=== PATIENT | male | born 1970 | race Caucasian/White ===

== ENCOUNTER 2016-07-23 13:08 | Emergency (ER) | payer MEDICARE, OTHER ==
[2016-07-23 13:39] VITALS: BP 133/85; PULSE 89; RESP 18; TEMP 97.8
--- NOTE | 2016-07-23 14:01 | ED ---
URI HPI - General Chief Complaint: Upper Respiratory Infection Stated Complaint: Sore Throat Time Seen by Provider: 07/23/16 13:46 Source: patient, RN notes reviewed Mode of arrival: ambulatory Limitations: no limitations - History of Present Illness Initial Comments: Patient is a 46-year-old male presents to the emergency room for evaluation of sore throat. Patient states he's had congestion and cough for the past few weeks. Patient states he's been having a sore throat for the past month. Patient states the pain is worse when he swallows. Patient denies trouble breathing or shortness of breath. Patient denies headache or dizziness. Patient denies chest pain. Patient denies any fevers or chills. Patient denies taking anything for his symptoms. Patient states his primary care physician has not come to see him at the [facility] yet. Patient denies abdominal pain, nausea, vomiting, diarrhea, constipation. - Related Data Home Medications Medication Instructions Recorded Confirmed Loratadine [Claritin] 10 mg PO DAILY 08/15/14 07/23/16 OXcarbazepine [Trileptal] 300 mg PO BID 08/15/14 07/23/16 Omeprazole [PriLOSEC] 20 mg PO AC-BRKFST 08/15/14 07/23/16 metFORMIN HCL [metFORMIN HCL ER] 1,000 mg PO AC-SUPPER 08/15/14 07/23/16 Insulin NPL/Insulin Lispro 26 unit SQ AC-BID 10/02/14 07/23/16 [humaLOG MIX 75-25 VIAL] Albuterol Nebulized [Ventolin 2.5 mg INHALATION RT-BID PRN 07/03/15 07/23/16 Nebulized] Gabapentin [Neurontin] 800 mg PO QID 07/03/15 07/23/16 Tamsulosin HCl [Flomax] 0.4 mg PO DAILY 07/03/15 07/23/16 Acetaminophen Tab [Tylenol] 500 mg PO TID PRN 01/13/16 07/23/16 Albuterol Inhaler [Ventolin Hfa 2 puff INHALATION RT-QID PRN 01/13/16 07/23/16 Inhaler] Dipyridamole-Aspirin 200-25 mg 1 tab PO BID 01/13/16 07/23/16 [Aggrenox 25MG -200MG] Ergocalciferol [Vitamin D2] 50,000 unit PO MO 01/13/16 07/23/16 Meloxicam [Mobic] 15 mg PO DAILY 01/13/16 07/23/16 Simvastatin [Zocor] 40 mg PO DAILY 01/13/16 07/23/16 Previous Rx's Medication Instructions Recorded Budesonide-Formot 160-4.5 Mcg 2 puff INHALATION RT-BID 30 Days 07/08/15 [Symbicort 160-4.5 Mcg Inhaler] Venlafaxine HCl ER [Effexor XR] 300 mg PO DAILY 30 Days 07/08/15 Ibuprofen [Motrin] 600 mg PO Q6HR PRN #20 tab 07/23/16 guaiFENesin [Mucinex] 1,200 mg PO BID PRN #12 tab.er.12h 07/23/16 Allergies Allergy/AdvReac Type Severity Reaction Status Date / Time ciprofloxacin Allergy Unknown Nausea Verified 07/23/16 13:39 dicyclomine HCl [From Bentyl] Allergy Unknown Dyspnea Verified 07/23/16 13:39 latex Allergy Unknown Rash/Hives Verified 07/23/16 13:39 Macrolide Antibiotics Allergy Unknown Nausea Verified 07/23/16 13:39 diphenhydramine HCl Allergy Anaphylaxis Verified 07/23/16 13:39 [From Benadryl] adhesive AdvReac Unknown Itching Verified 07/23/16 13:39 sulfamethoxazole AdvReac Unknown Unknown Verified 07/23/16 13:39 [From Bactrim] trimethoprim [From Bactrim] AdvReac Unknown Unknown Verified 07/23/16 13:39 Review of Systems ROS Statement: Those systems with pertinent positive or pertinent negative responses have been documented in the HPI. ROS Other: All systems not noted in ROS Statement are negative. Past Medical History Past Medical History: Asthma, Chest Pain / Angina, COPD, CVA/TIA, Diabetes Mellitus, GERD/Reflux, Hearing Disorder / Deafness, Hyperlipidemia, Hypertension , Liver Disease, Osteoarthritis (OA), Pneumonia, Seizure Disorder, Sleep Apnea/ CPAP/BIPAP Additional Past Medical History / Comment(s): Cyst on kidney, uses cpap (21) History of Any Multi-Drug Resistant Organisms: None Reported Past Surgical History: Heart Catheterization, Orthopedic Surgery Additional Past Surgical History / Comment(s): Cysts removed, left thumb surgery Past Anesthesia/Blood Transfusion Reactions: Motion Sickness, Postoperative Nausea & Vomiting (PONV) Past Psychological History: Bipolar, Depression, Schizophrenia Smoking Status: Current every day smoker Past Alcohol Use History: None Reported Additional Past Alcohol Use History / Comment(s): PAST ETOH ABUSE STATED STOPPED TOTALLY OVER 1 MONTH. Past Drug Use History: None Reported - Past Family History Brother(s) Family Medical History: Diabetes Mellitus Additional Family Medical History / Comment(s): Patient has 2 brothers. One from complications from diabetes. The second is alive with diabetes. Sister(s) Family Medical History: Cancer Additional Family Medical History / Comment(s): Patient has one sister with breast cancer. Patient does not have any children. Father Family Medical History: Cancer Additional Family Medical History / Comment(s): Father in his 40s or 50s from colon cancer. Mother Family Medical History: Cancer Additional Family Medical History / Comment(s): Mother at age 68 from lung cancer. General Exam - General Exam Comments Initial Comments: Sitting in exam room, no acute distress. Limitations: no limitations General appearance: alert, in no apparent distress Head exam: Present: atraumatic, normocephalic, normal inspection Eye exam: Present: normal appearance ENT exam: Present: normal exam, normal oropharynx, mucous membranes moist, TM's normal bilaterally, normal external ear exam Neck exam: Present: normal inspection Respiratory exam: Present: normal lung sounds bilaterally. Absent: respiratory distress Cardiovascular Exam: Present: regular rate, normal rhythm, normal heart sounds GI/Abdominal exam: Present: soft, normal bowel sounds. Absent: distended, tenderness, guarding, rebound, rigid Extremities exam: Present: normal inspection Back exam: Present: normal inspection Neurological exam: Present: alert, oriented X3, CN II-XII intact, normal gait Psychiatric exam: Present: normal affect, normal mood Skin exam: Present: warm, dry, intact, normal color. Absent: rash Course Vital Signs 07/23/16 13:38 Temperature 97.8 F Pulse Rate 89 Respiratory 18 Rate Blood Pressure 133/85 O2 Sat by Pulse 97 Oximetry Medical Decision Making - Medical Decision Making Patient is a 46-year-old male presents to the emergency room for evaluation of congestion and throat pain. Rapid strep negative. Advised the patient to take [id number] decongestants and ibuprofen for throat pain. Advised patient to follow-up with his primary care provider in 1-2 days for reevaluation. Patient states he understands everything that was discussed with him. Return parameters discussed. Case discussed with Dr. Felix. - Lab Data Lab Results 07/23/16 Range/Units 13:57 Group A Strep Rapid Negative (Negative) Disposition Clinical Impression: Upper respiratory infection Disposition: HOME SELF-CARE Condition: Good Instructions: Upper Respiratory Infection (ED) Additional Instructions: Drink plenty of fluids. Take medications as needed. Take Tylenol or Motrin as needed for pain. Please follow up with primary care provider in 1-2 days. If any new symptom arises, symptoms worsen or fever develops, return to ER as soon as possible. Prescriptions: Ibuprofen [Motrin] 600 mg PO Q6HR PRN #20 tab PRN Reason: Pain guaiFENesin [Mucinex] 1,200 mg PO BID PRN #12 tab.er.12h PRN Reason: Congestion Referrals: Antonio Davies MD [Primary Care Provider] - 1-2 days Time of Disposition: 14:25
[2016-07-23] MEDS ORDERED: IBUPROFEN 600 MG TAB PO STA (14:02)
== END 2016-07-23 14:33 | disposition home or self-care (01) ==
LOC: EC 13:08
DX: J06.9 Acute upper respiratory infection, unspecified (principal); Z79.899 Other long term (current) drug therapy; J45.909 Unspecified asthma, uncomplicated; E11.9 Type 2 diabetes mellitus without complications; Z79.4 Long term (current) use of insulin; K21.9 Gastro-esophageal reflux disease without esophagitis; E78.5 Hyperlipidemia, unspecified; I10 Essential (primary) hypertension; G40.909 Epilepsy, unspecified, not intractable, without status epilepticus; M19.90 Unspecified osteoarthritis, unspecified site; Z98.61 Coronary angioplasty status; F32.9 Major depressive disorder, single episode, unspecified; F20.9 Schizophrenia, unspecified; F17.200 Nicotine dependence, unspecified, uncomplicated; Z87.01 Personal history of pneumonia (recurrent); Z79.84 Long term (current) use of oral hypoglycemic drugs; Z79.82 Long term (current) use of aspirin; Z79.51 Long term (current) use of inhaled steroids; Z88.8 Allergy status to other drugs, medicaments and biological substances; Z88.1 Allergy status to other antibiotic agents
CPT/HCPCS: 87081; 87430; 99283

== ENCOUNTER 2016-08-11 13:50 | Emergency (ER) | payer MEDICARE, OTHER ==
[2016-08-11 14:08] VITALS: TEMP 99.5
[2016-08-11] MEDS ORDERED: SODIUM CHLORIDE 0.9% 500 ML IV STA (14:40)
--- NOTE | 2016-08-11 14:44 | ED ---
Chest Pain HPI - General Chief Complaint: Chest Pain Stated Complaint: Chest Pain Time Seen by Provider: 08/11/16 14:27 Source: patient, RN notes reviewed Mode of arrival: ambulatory Limitations: no limitations - History of Present Illness Initial Comments: Patient is a 46-year-old male presents to the emergency room for evaluation of chest pain. Patient states been having on and off chest pain for the past few months. Patient states he's been here before with the same symptoms. Patient states this chest pain feels similar to his other episodes of chest. Patient states chest pain worsened today after smoking about 9 cigars. Patient does admit that she feels slightly short of breath. Patient states feels nauseous but denies any vomiting. Patient denies abdominal pain. Patient denies headache or dizziness. Patient has numbness or tingling in extremities. Patient states he is having sharp/throbbing chest pain. Patient states pain is worse with movement and taking a deep breath. - Related Data Home Medications Medication Instructions Recorded Confirmed Loratadine [Claritin] 10 mg PO DAILY 08/15/14 08/11/16 OXcarbazepine [Trileptal] 300 mg PO BID 08/15/14 08/11/16 Omeprazole [PriLOSEC] 20 mg PO AC-BRKFST 08/15/14 08/11/16 metFORMIN HCL [metFORMIN HCL ER] 1,000 mg PO AC-SUPPER 08/15/14 08/11/16 Insulin NPL/Insulin Lispro 26 unit SQ AC-BID 10/02/14 08/11/16 [humaLOG MIX 75-25 VIAL] Albuterol Nebulized [Ventolin 2.5 mg INHALATION RT-BID PRN 07/03/15 08/11/16 Nebulized] Gabapentin [Neurontin] 800 mg PO QID 07/03/15 08/11/16 Tamsulosin HCl [Flomax] 0.4 mg PO DAILY 07/03/15 08/11/16 Acetaminophen Tab [Tylenol] 500 mg PO TID PRN 01/13/16 08/11/16 Albuterol Inhaler [Ventolin Hfa 2 puff INHALATION RT-QID PRN 01/13/16 08/11/16 Inhaler] Dipyridamole-Aspirin 200-25 mg 1 tab PO BID 01/13/16 08/11/16 [Aggrenox 25MG -200MG] Ergocalciferol [Vitamin D2] 50,000 unit PO MO 01/13/16 08/11/16 Meloxicam [Mobic] 15 mg PO DAILY 01/13/16 08/11/16 Simvastatin [Zocor] 40 mg PO DAILY 01/13/16 08/11/16 Previous Rx's Medication Instructions Recorded Budesonide-Formot 160-4.5 Mcg 2 puff INHALATION RT-BID 30 Days 07/08/15 [Symbicort 160-4.5 Mcg Inhaler] Venlafaxine HCl ER [Effexor XR] 300 mg PO DAILY 30 Days 07/08/15 Ibuprofen [Motrin] 600 mg PO Q6HR PRN #20 tab 07/23/16 guaiFENesin [Mucinex] 1,200 mg PO BID PRN #12 tab.er.12h 07/23/16 Allergies Allergy/AdvReac Type Severity Reaction Status Date / Time ciprofloxacin Allergy Unknown Nausea Verified 08/11/16 14:05 dicyclomine HCl [From Bentyl] Allergy Unknown Dyspnea Verified 08/11/16 14:05 latex Allergy Unknown Rash/Hives Verified 08/11/16 14:05 Macrolide Antibiotics Allergy Unknown Nausea Verified 08/11/16 14:05 diphenhydramine HCl Allergy Anaphylaxis Verified 08/11/16 14:05 [From Benadryl] adhesive AdvReac Unknown Itching Verified 08/11/16 14:05 sulfamethoxazole AdvReac Unknown Unknown Verified 08/11/16 14:05 [From Bactrim] trimethoprim [From Bactrim] AdvReac Unknown Unknown Verified 08/11/16 14:05 Review of Systems ROS Statement: Those systems with pertinent positive or pertinent negative responses have been documented in the HPI. ROS Other: All systems not noted in ROS Statement are negative. EKG Findings - EKG Comments: EKG Findings:: Normal sinus rhythm, ventricular rate 73 bpm, MS interval of 124 ms, QRS duration 100 ms, QT/QTC 390/429 ms Past Medical History Past Medical History: Asthma, Chest Pain / Angina, COPD, CVA/TIA, Diabetes Mellitus, GERD/Reflux, Hearing Disorder / Deafness, Hyperlipidemia, Hypertension , Liver Disease, Osteoarthritis (OA), Pneumonia, Seizure Disorder, Sleep Apnea/ CPAP/BIPAP Additional Past Medical History / Comment(s): Cyst on kidney, uses cpap (21) History of Any Multi-Drug Resistant Organisms: None Reported Past Surgical History: Heart Catheterization, Orthopedic Surgery Additional Past Surgical History / Comment(s): Cysts removed, left thumb surgery Past Anesthesia/Blood Transfusion Reactions: Motion Sickness, Postoperative Nausea & Vomiting (PONV) Past Psychological History: Bipolar, Depression, Schizophrenia Smoking Status: Current every day smoker Past Alcohol Use History: None Reported, Rare Additional Past Alcohol Use History / Comment(s): PAST ETOH ABUSE STATED STOPPED TOTALLY OVER 1 MONTH. Past Drug Use History: None Reported - Past Family History Brother(s) Family Medical History: Diabetes Mellitus Additional Family Medical History / Comment(s): Patient has 2 brothers. One from complications from diabetes. The second is alive with diabetes. Sister(s) Family Medical History: Cancer Additional Family Medical History / Comment(s): Patient has one sister with breast cancer. Patient does not have any children. Father Family Medical History: Cancer Additional Family Medical History / Comment(s): Father in his 40s or 50s from colon cancer. Mother Family Medical History: Cancer Additional Family Medical History / Comment(s): Mother at age 68 from lung cancer. General Exam - General Exam Comments Initial Comments: Sitting in exam room in no acute distress. Limitations: no limitations General appearance: alert, in no apparent distress Head exam: Present: atraumatic, normocephalic, normal inspection Eye exam: Present: normal appearance ENT exam: Present: normal exam Neck exam: Present: normal inspection Respiratory exam: Present: normal lung sounds bilaterally, chest wall tenderness (Reproducible chest mid-sternal tenderness on palpation). Absent: respiratory distress Cardiovascular Exam: Present: regular rate, normal rhythm, normal heart sounds GI/Abdominal exam: Present: soft, normal bowel sounds. Absent: distended, tenderness, guarding, rebound, rigid Extremities exam: Present: normal inspection Back exam: Present: normal inspection Neurological exam: Present: alert, oriented X3, CN II-XII intact, normal gait Psychiatric exam: Present: normal affect, normal mood Skin exam: Present: warm, dry, intact, normal color. Absent: rash Course Vital Signs 08/11/16 08/11/16 08/11/16 14:02 14:45 15:03 Temperature 99.5 F Pulse Rate 86 67 Pulse Rate [ 70 Bilateral Radial] Respiratory 18 15 15 Rate Blood Pressure 114/68 137/90 O2 Sat by Pulse 98 98 Oximetry 08/11/16 08/11/16 16:24 16:28 Temperature Pulse Rate 70 Pulse Rate [ Bilateral Radial] Respiratory 14 Rate Blood Pressure 121/74 O2 Sat by Pulse 99 99 Oximetry Chest Pain MDM - MDM Patient is a 46-year-old male presents to the emergency room for evaluation of chest pain. Patient has been here multiple times for the same complaint. Labs reviewed. No concerning findings noted. Results discussed with patient. Advised patient to follow-up with primary care provider. Patient states he understands everything that was discussed with him. Return parameters discussed. Case discussed with Dr. Cedillo. Disposition Clinical Impression: Chest pain Disposition: HOME SELF-CARE Condition: Good Instructions: Chest Pain (ED) Additional Instructions: Take Tylenol or Motrin as needed for pain. Please follow-up with primary care provider for reevaluation in 24-48 hours. If any new symptom arises or symptoms worsen, return to ER as soon as possible. Referrals: Antonio Davies MD [Primary Care Provider] - 1-2 days Time of Disposition: 16:23
[2016-08-11 15:35] LABS: Basophils % (A) 0 %; CH 32.8; CHCM 36.3; Eosinophils # (A) 0.3 k/uL (0-0.7); Eosinophils % (A) 4 %; HCT 43.7 % (39.0-53.0); HDW 2.64; HGB 15.4 gm/dL (13.0-17.5); Luc # (Auto) 0.23; Luc % (Auto) 3; Lymphocytes # (A) 1.6 k/uL (1.0-4.8); Lymphocytes % (A) 24 %; MCHC 35.2 g/dL (31.0-37.0); MCV 90.8 fL (80.0-100.0); Monocytes # (A) 0.4 k/uL (0-1.0); Monocytes % (A) 5 %; Neutrophils # (A) 4.5 k/uL (1.3-7.7); Neutrophils % (A) 64 %; RBC 4.81 m/uL (4.30-5.90); RDW 12.9 % (11.5-15.5); WBC (Perox) 7.67
--- NOTE | 2016-08-11 15:42 | XR ---
EXAMINATION TYPE: XR chest 2V DATE OF EXAM: 08/11/2016 3:38 PM COMPARISON: Prior chest x-ray January 13, 2016. HISTORY: Shortness of breath and chest pain. TECHNIQUE: Frontal and lateral views of the chest are obtained. FINDINGS: There is no focal air space opacity, pleural effusion, or pneumothorax seen. Underlying e mphysematous change is not excluded on lateral view. The cardiac silhouette size is mildly enlarged o n current study. The osseous structures are intact. IMPRESSION: Mild cardiomegaly without acute pulmonary process.
[2016-08-11 15:44] LABS: ALT 59 U/L (21-72); AST 30 U/L (17-59); Alkaline Phosphatase 81 U/L (38-126); Anion Gap 11 mmol/L; Blood Urea Nitrogen 8 mg/dL (9-20); Calcium 10.3 mg/dL (8.4-10.2); Carbon Dioxide 24 mmol/L (22-30); Chloride 109 mmol/L (98-107); Glucose 87 mg/dL (74-99); Magnesium 2.2 mg/dL (1.6-2.3); Non-African American GFR(MDRD) >60 (>60 ml/min/1.73 sqM); Sodium 144 mmol/L (137-145); Total Bilirubin 0.3 mg/dL (0.2-1.3); Total Protein 6.7 g/dL (6.3-8.2)
[2016-08-11 15:49] LABS: Partial Thromboplastin Time 24.5 sec (22.0-30.0); Prothrombin Time 9.8 sec (9.0-12.0)
[2016-08-11 15:53] LABS: Creatine Kinase 438 U/L (55-170)
[2016-08-11 16:06] LABS: Troponin I <0.012 ng/mL (0.000-0.034)
[2016-08-11 16:07] LABS: Creatine Kinase MB 2.5 ng/mL (0.0-2.4)
[2016-08-11] MEDS ORDERED: IBUPROFEN 600 MG TAB PO STA (16:24)
[2016-08-11 16:25] VITALS: BP 121/74; PULSE 70; RESP 14
== END 2016-08-11 16:31 | disposition home or self-care (01) ==
LOC: EC 13:50
DX: R07.2 Precordial pain (principal); R11.0 Nausea; K21.9 Gastro-esophageal reflux disease without esophagitis; J44.9 Chronic obstructive pulmonary disease, unspecified; J45.909 Unspecified asthma, uncomplicated; E11.9 Type 2 diabetes mellitus without complications; F32.9 Major depressive disorder, single episode, unspecified; M19.90 Unspecified osteoarthritis, unspecified site; G40.909 Epilepsy, unspecified, not intractable, without status epilepticus; E78.5 Hyperlipidemia, unspecified; Z87.448 Personal history of other diseases of urinary system; Z86.73 Personal history of transient ischemic attack (TIA), and cerebral infarction without residual deficits; Z87.01 Personal history of pneumonia (recurrent); F17.210 Nicotine dependence, cigarettes, uncomplicated; Z79.899 Other long term (current) drug therapy; Z79.4 Long term (current) use of insulin; Z79.1 Long term (current) use of non-steroidal anti-inflammatories (NSAID); Z79.82 Long term (current) use of aspirin; Z88.1 Allergy status to other antibiotic agents; Z88.2 Allergy status to sulfonamides; Z88.8 Allergy status to other drugs, medicaments and biological substances; Z91.040 Latex allergy status; Z91.048 Other nonmedicinal substance allergy status; Z95.818 Presence of other cardiac implants and grafts
CPT/HCPCS: 36415; 71020; 80053; 82550; 82553; 83735; 84484; 85025; 85379; 85610; 85730; 93005; 96360; 99285

== ENCOUNTER 2016-09-11 10:07 | Emergency (ER) | payer MEDICARE, OTHER ==
[2016-09-11 10:45] VITALS: BP 136/84; PULSE 77; RESP 20; TEMP 98.2
--- NOTE | 2016-09-11 11:26 | ED ---
General Adult HPI - General Chief complaint: Extremity Injury, Lower Stated complaint: LEFT BIG TOE SPLIT - DIABETIC Time Seen by Provider: 09/11/16 11:10 Source: patient, RN notes reviewed, old records reviewed Mode of arrival: ambulatory Limitations: no limitations - History of Present Illness Initial comments: Chief complaint history of present illness is a 46-year-old male here with a complaint of a large callus on his left great toe. No evidence of any swelling is no a foot doctor.t cracked at this time. Patient is a diabetic he will be referred onto - Related Data Home Medications Medication Instructions Recorded Confirmed Loratadine [Claritin] 10 mg PO DAILY 08/15/14 08/11/16 OXcarbazepine [Trileptal] 300 mg PO BID 08/15/14 08/11/16 Omeprazole [PriLOSEC] 20 mg PO AC-BRKFST 08/15/14 08/11/16 metFORMIN HCL [metFORMIN HCL ER] 1,000 mg PO AC-SUPPER 08/15/14 08/11/16 Insulin NPL/Insulin Lispro 26 unit SQ AC-BID 10/02/14 08/11/16 [humaLOG MIX 75-25 VIAL] Albuterol Nebulized [Ventolin 2.5 mg INHALATION RT-BID PRN 07/03/15 08/11/16 Nebulized] Gabapentin [Neurontin] 800 mg PO QID 07/03/15 08/11/16 Tamsulosin HCl [Flomax] 0.4 mg PO DAILY 07/03/15 08/11/16 Acetaminophen Tab [Tylenol] 500 mg PO TID PRN 01/13/16 08/11/16 Albuterol Inhaler [Ventolin Hfa 2 puff INHALATION RT-QID PRN 01/13/16 08/11/16 Inhaler] Dipyridamole-Aspirin 200-25 mg 1 tab PO BID 01/13/16 08/11/16 [Aggrenox 25MG -200MG] Ergocalciferol [Vitamin D2] 50,000 unit PO MO 01/13/16 08/11/16 Meloxicam [Mobic] 15 mg PO DAILY 01/13/16 08/11/16 Simvastatin [Zocor] 40 mg PO DAILY 01/13/16 08/11/16 Previous Rx's Medication Instructions Recorded Budesonide-Formot 160-4.5 Mcg 2 puff INHALATION RT-BID 30 Days 07/08/15 [Symbicort 160-4.5 Mcg Inhaler] Venlafaxine HCl ER [Effexor XR] 300 mg PO DAILY 30 Days 07/08/15 Ibuprofen [Motrin] 600 mg PO Q6HR PRN #20 tab 07/23/16 guaiFENesin [Mucinex] 1,200 mg PO BID PRN #12 tab.er.12h 07/23/16 Allergies Allergy/AdvReac Type Severity Reaction Status Date / Time ciprofloxacin Allergy Unknown Nausea Verified 08/11/16 14:05 dicyclomine HCl [From Bentyl] Allergy Unknown Dyspnea Verified 08/11/16 14:05 latex Allergy Unknown Rash/Hives Verified 08/11/16 14:05 Macrolide Antibiotics Allergy Unknown Nausea Verified 08/11/16 14:05 diphenhydramine HCl Allergy Anaphylaxis Verified 08/11/16 14:05 [From Benadryl] adhesive AdvReac Unknown Itching Verified 08/11/16 14:05 sulfamethoxazole AdvReac Unknown Unknown Verified 08/11/16 14:05 [From Bactrim] trimethoprim [From Bactrim] AdvReac Unknown Unknown Verified 08/11/16 14:05 Review of Systems ROS Statement: Those systems with pertinent positive or pertinent negative responses have been documented in the HPI. Review of systems no complaint of headache chest pain shows breath GI/ problems this time. His complaint is a large callus on his medial aspect of his left great toe. It is not infected there is no cracks in it that he thought there was. It is grown to the size of being uncomfortable in his shoe. All systems are reviewed. Past medical problems significant for COPD, TIA, diabetes mellitus, GERD, hearing disorder, hyperlipidemia, hypertension, liver disease, OA, seizure disorder, sleep apnea. Surgeries heart catheterization, his orthopedic surgeries. Family history noncontributory ALLERGIES multiple including Cipro, dicyclomine, latex, macrolide antibiotics, diphenhydramine, adhesive and sulfa. Patient strongly encouraged stop smoking. Advised doctors family Dr. Marlon bauman to help him stop. Risks again explained to the patient. ROS Other: All systems not noted in ROS Statement are negative. Past Medical History Past Medical History: Asthma, Chest Pain / Angina, COPD, CVA/TIA, Diabetes Mellitus, GERD/Reflux, Hearing Disorder / Deafness, Hyperlipidemia, Hypertension , Liver Disease, Osteoarthritis (OA), Pneumonia, Seizure Disorder, Sleep Apnea/ CPAP/BIPAP Additional Past Medical History / Comment(s): Cyst on kidney, uses cpap (22) History of Any Multi-Drug Resistant Organisms: None Reported Past Surgical History: Heart Catheterization, Orthopedic Surgery Additional Past Surgical History / Comment(s): Cysts removed, left thumb surgery Past Anesthesia/Blood Transfusion Reactions: Motion Sickness, Postoperative Nausea & Vomiting (PONV) Past Psychological History: Bipolar, Depression, Schizophrenia Smoking Status: Current every day smoker Past Alcohol Use History: None Reported, Rare Additional Past Alcohol Use History / Comment(s): PAST ETOH ABUSE STATED STOPPED TOTALLY OVER 1 MONTH. Past Drug Use History: None Reported - Past Family History Brother(s) Family Medical History: Diabetes Mellitus Additional Family Medical History / Comment(s): Patient has 2 brothers. One from complications from diabetes. The second is alive with diabetes. Sister(s) Family Medical History: Cancer Additional Family Medical History / Comment(s): Patient has one sister with breast cancer. Patient does not have any children. Father Family Medical History: Cancer Additional Family Medical History / Comment(s): Father in his 40s or 50s from colon cancer. Mother Family Medical History: Cancer Additional Family Medical History / Comment(s): Mother at age 68 from lung cancer. General Exam - General Exam Comments Initial Comments: General: The patient is awake and alert, in no distress, and does not appear acutely ill. Vital signs show temperature 98.2 pulse 77 return rate 20 pulse ox 99% room air blood pressure 136/84. Mildly elevated systolic diastolic discussed with patient he is going to be following up with his family physician in the next week. Eye: Pupils are equal, extra-ocular movements are intact; there is normal conjunctiva bilaterally. No signs of icterus. Ears, nose, mouth and throat: There are moist mucous membranes The neck is supple, there is no tenderness Cardiovascular: No complaint chest pain or palpitations. Respiratory: No complaint of shortness of breath. No wheezing. Gastrointestinal: No complaint of abdominal pain. No nausea no vomiting no diarrhea. Back: No complaint of back pain. Full range of motion noted. Musculoskeletal: Normal ROM, no tenderness, There is no pedal edema. There is no calf tenderness or swelling. Sensation intact. Upper and lower extremities within normal limits. Patient does have a large callus on the medial aspect of his left great toe. It is not infected. It is intact. He'll be referred on to a maintenance instructor. Neurological: Patient walking talking bounces good no complaints. No evidence of any focal or lateralizing findings. Skin: Skin is warm and dry and no rashes or lesions are noted. Psychiatric: History of depression, and mentally challenged. No current complaints of any depression. Limitations: no limitations Course Vital Signs 09/11/16 10:41 Temperature 98.2 F Pulse Rate 77 Respiratory 20 Rate Blood Pressure 136/84 O2 Sat by Pulse 99 Oximetry Medical Decision Making - Medical Decision Making The patient has been advised to follow-up with a maintenance instructor. Advised follow-up with family physician concerning stopping smoking. Also advised to buy a pair shoes that he can cut a small area about where the callus has been rubbing on his current shoes. Disposition Clinical Impression: Callus of foot Disposition: HOME SELF-CARE Condition: Good Additional Instructions: Stop smoking. Follow-up with family physician and ask for ways to help he stop smoking. Cutin an old pair of shoes to make it more comfortable in the area of her callus. Follow up with a maintenance instructor. Report any signs of infection to the family doctor Time of Disposition: 11:26
== END 2016-09-11 11:45 | disposition home or self-care (01) ==
LOC: EC 10:07
DX: L84 Corns and callosities (principal); J44.9 Chronic obstructive pulmonary disease, unspecified; E11.9 Type 2 diabetes mellitus without complications; K21.9 Gastro-esophageal reflux disease without esophagitis; E78.5 Hyperlipidemia, unspecified; I10 Essential (primary) hypertension; G40.909 Epilepsy, unspecified, not intractable, without status epilepticus; M19.90 Unspecified osteoarthritis, unspecified site; F31.9 Bipolar disorder, unspecified; F17.200 Nicotine dependence, unspecified, uncomplicated; Z79.4 Long term (current) use of insulin; Z79.899 Other long term (current) drug therapy; Z88.1 Allergy status to other antibiotic agents; Z88.8 Allergy status to other drugs, medicaments and biological substances; Z88.2 Allergy status to sulfonamides; Z91.048 Other nonmedicinal substance allergy status; Z86.73 Personal history of transient ischemic attack (TIA), and cerebral infarction without residual deficits; Z87.01 Personal history of pneumonia (recurrent); Z86.79 Personal history of other diseases of the circulatory system; Z95.818 Presence of other cardiac implants and grafts
CPT/HCPCS: 99283

== ENCOUNTER 2016-10-25 18:41 | Emergency (ER) | payer MEDICARE, OTHER ==
--- NOTE | 2016-10-25 19:18 | ED ---
General Adult HPI - General Chief complaint: Abdominal Pain Stated complaint: URINE RETENTION Time Seen by Provider: 10/25/16 19:07 Source: patient, RN notes reviewed Mode of arrival: ambulatory Limitations: no limitations - History of Present Illness Initial comments: 46-year-old male presents to the emergency department because he states he did not have a bowel movement today and he has not feels if he has PE does much they if he should have. Patient is able to urinate. He just feels like maybe he should be urinating more. Patient states he also has not had a bowel movement today but he did have one yesterday. Patient denies any abdominal pain any discomfort any dysuria any blood in the urine. Patient states she was concerned about these things without that he should be evaluated.Patient denies any recent fever, chills, shortness of breath, chest pain, back pain, abdominal pain, nausea vomiting, numbness or tingling, dysuria or hematuria, constipation or diarrhea, headaches or visual changes, or any other current symptoms. - Related Data Home Medications Medication Instructions Recorded Confirmed Loratadine [Claritin] 10 mg PO DAILY 08/15/14 10/25/16 OXcarbazepine [Trileptal] 300 mg PO BID 08/15/14 10/25/16 Omeprazole [PriLOSEC] 20 mg PO AC-BRKFST 08/15/14 10/25/16 metFORMIN HCL [metFORMIN HCL ER] 1,000 mg PO AC-SUPPER 08/15/14 10/25/16 Insulin NPL/Insulin Lispro 26 unit SQ AC-BID 10/02/14 10/25/16 [humaLOG MIX 75-25 VIAL] Albuterol Nebulized [Ventolin 2.5 mg INHALATION RT-BID PRN 07/03/15 10/25/16 Nebulized] Gabapentin [Neurontin] 800 mg PO QID 07/03/15 10/25/16 Tamsulosin HCl [Flomax] 0.4 mg PO DAILY 07/03/15 10/25/16 Acetaminophen Tab [Tylenol] 500 mg PO TID PRN 01/13/16 10/25/16 Albuterol Inhaler [Ventolin Hfa 2 puff INHALATION RT-QID PRN 01/13/16 10/25/16 Inhaler] Dipyridamole-Aspirin 200-25 mg 1 tab PO BID 01/13/16 10/25/16 [Aggrenox 25MG -200MG] Ergocalciferol [Vitamin D2] 50,000 unit PO MO 01/13/16 10/25/16 Meloxicam [Mobic] 15 mg PO DAILY 01/13/16 10/25/16 Simvastatin [Zocor] 40 mg PO DAILY 01/13/16 10/25/16 Previous Rx's Medication Instructions Recorded Budesonide-Formot 160-4.5 Mcg 2 puff INHALATION RT-BID 30 Days 07/08/15 [Symbicort 160-4.5 Mcg Inhaler] Venlafaxine HCl ER [Effexor XR] 300 mg PO DAILY 30 Days 07/08/15 Ibuprofen [Motrin] 600 mg PO Q6HR PRN #20 tab 07/23/16 guaiFENesin [Mucinex] 1,200 mg PO BID PRN #12 tab.er.12h 07/23/16 Allergies Allergy/AdvReac Type Severity Reaction Status Date / Time ciprofloxacin Allergy Unknown Nausea Verified 10/25/16 19:05 dicyclomine HCl [From Bentyl] Allergy Unknown Dyspnea Verified 10/25/16 19:05 latex Allergy Unknown Rash/Hives Verified 10/25/16 19:05 Macrolide Antibiotics Allergy Unknown Nausea Verified 10/25/16 19:05 diphenhydramine HCl Allergy Anaphylaxis Verified 10/25/16 19:05 [From Benadryl] adhesive AdvReac Unknown Itching Verified 10/25/16 19:05 sulfamethoxazole AdvReac Unknown Unknown Verified 10/25/16 19:05 [From Bactrim] trimethoprim [From Bactrim] AdvReac Unknown Unknown Verified 10/25/16 19:05 Review of Systems ROS Statement: Those systems with pertinent positive or pertinent negative responses have been documented in the HPI. ROS Other: All systems not noted in ROS Statement are negative. Past Medical History Past Medical History: Asthma, Chest Pain / Angina, COPD, CVA/TIA, Diabetes Mellitus, GERD/Reflux, Hearing Disorder / Deafness, Hyperlipidemia, Hypertension , Liver Disease, Osteoarthritis (OA), Pneumonia, Seizure Disorder, Sleep Apnea/ CPAP/BIPAP Additional Past Medical History / Comment(s): Cyst on kidney, uses cpap (22) History of Any Multi-Drug Resistant Organisms: None Reported Past Surgical History: Heart Catheterization, Orthopedic Surgery Additional Past Surgical History / Comment(s): Cysts removed, left thumb surgery Past Anesthesia/Blood Transfusion Reactions: Motion Sickness, Postoperative Nausea & Vomiting (PONV) Past Psychological History: Bipolar, Depression, Schizophrenia Smoking Status: Current every day smoker Past Alcohol Use History: None Reported, Rare Additional Past Alcohol Use History / Comment(s): PAST ETOH ABUSE STATED STOPPED TOTALLY OVER 1 MONTH. Past Drug Use History: None Reported - Past Family History Brother(s) Family Medical History: Diabetes Mellitus Additional Family Medical History / Comment(s): Patient has 2 brothers. One from complications from diabetes. The second is alive with diabetes. Sister(s) Family Medical History: Cancer Additional Family Medical History / Comment(s): Patient has one sister with breast cancer. Patient does not have any children. Father Family Medical History: Cancer Additional Family Medical History / Comment(s): Father in his 40s or 50s from colon cancer. Mother Family Medical History: Cancer Additional Family Medical History / Comment(s): Mother at age 68 from lung cancer. General Exam - General Exam Comments Initial Comments: General: The patient is awake and alert, in no distress, and does not appear acutely ill. Eye: Pupils are equal, round. Ears, nose, mouth and throat: There are moist mucous membranes. Neck: The neck is supple, there is no tenderness. Cardiovascular: There is a regular rate and rhythm. No murmur, rub or gallop is appreciated. Respiratory: Lungs are clear to auscultation, respirations are non-labored, breath sounds are equal. No wheezes, stridor, rales, or rhonchi. Gastrointestinal: Soft, non-distended, non-tender abdomen without masses or organomegaly noted. There is no rebound or guarding present. No CVA tenderness. Bowel sounds are unremarkable. Back: There is no tenderness to palpation in the midline. There is no obvious deformity. No rashes noted. Musculoskeletal: Normal ROM, no tenderness, There is no pedal edema. There is no calf tenderness or swelling. Sensation intact. Pulses equal bilaterally 2+. Neurological: CN II-XII intact, There are no obvious motor or sensory deficits. Coordination appears grossly intact. Speech is normal. Skin: Skin is warm and dry and no rashes or lesions are noted. Psychiatric: Cooperative, appropriate mood & affect, normal judgment. Limitations: no limitations Course Vital Signs 10/25/16 10/25/16 19:02 19:20 Temperature 99.2 F Pulse Rate 90 Respiratory 16 16 Rate Blood Pressure 127/87 O2 Sat by Pulse 97 Oximetry Medical Decision Making - Medical Decision Making 46-year-old male presents emergency Department chief complaint of not having a bowel movement yet today and possibly not urinating as he should. This time we did do a post void bladder scan. This time patient only has 35 post void. Patient's urinalysis is reviewed and negative. This time we discussed to continue water in the diet. We did discuss we will give him a stool softener here as well as to help hopefully have a bowel movement. We did discuss return parameters and follow-up. Patient stated that he understood and all questions have been answered. He will be discharged home. - Lab Data Lab Results 10/25/16 Range/Units 19:15 Urine Color Yellow Urine Appearance Clear (Clear) Urine pH 6.5 (5.0-8.0) Ur Specific [place] 1.012 (1.001-1.035) Urine Protein Negative (Negative) Urine Glucose (UA) Negative (Negative) Urine Ketones Negative (Negative) Urine Blood Negative (Negative) Urine Nitrite Negative (Negative) Urine Bilirubin Negative (Negative) Urine Urobilinogen <2.0 (<2.0) mg/dL Ur Leukocyte Esterase Negative (Negative) - Radiology Data Radiology results: report reviewed, image reviewed Disposition Clinical Impression: Constipation Disposition: HOME SELF-CARE Condition: Stable Instructions: Constipation (ED) Additional Instructions: Please use medication as discussed. Please follow up with family doctor if symptoms have not improved over the next two days. Please return to the emergency room if your symptoms increase or worsen or for any other concerns. Referrals: Ramya Saul MD [Primary Care Provider] - 1-2 days Time of Disposition: 19:50
[2016-10-25 19:29] LABS: Appearance,Urine Clear (Clear); Bilirubin,Urine Negative (Negative); Glucose,Urine (UA) Negative (Negative); Ketones,Urine Negative (Negative); Leukocyte Esterase,Urine Negative (Negative); Nitrite,Urine Negative (Negative); PH, Urine 6.5 (5.0-8.0); Protein,Urine Negative (Negative); Specific Gravity,Urine 1.012 (1.001-1.035); UA Billing (MACRO vs. MICRO) CHEM; Urobilinogen,Urine <2.0 mg/dL (<2.0)
[2016-10-25] MEDS ORDERED: DOCUSATE 100 MG CAP PO STA (19:36)
--- NOTE | 2016-10-25 19:40 | XR ---
EXAMINATION TYPE: XR abdomen 2V DATE OF EXAM: 10/25/2016 7:28 PM CLINICAL DATA: 46-year-old male nausea, constipation for 2 days, pain, PHH COMPARISON: 10/18/2015 FINDINGS: Lung bases are clear. No evidence for free intraperitoneal air. No dilated small bowel or air-fluid levels. Scattered air and stool seen throughout the colon extendi ng distally into the rectum. Moderate stool burden. No suspicious calcifications identified. Stable phlebolith within the left hemipelvis. IMPRESSION: Moderate stool burden. No evidence of bowel obstruction or free intraperitoneal air.
[2016-10-25 19:56] VITALS: TEMP 97.8
[2016-10-25 20:15] VITALS: BP 131/79; PULSE 72; RESP 18
== END 2016-10-25 20:15 | disposition home or self-care (01) ==
LOC: EC 18:41
DX: K59.00 Constipation, unspecified (principal); R33.9 Retention of urine, unspecified; K21.9 Gastro-esophageal reflux disease without esophagitis; E11.9 Type 2 diabetes mellitus without complications; I10 Essential (primary) hypertension; F31.9 Bipolar disorder, unspecified; E78.5 Hyperlipidemia, unspecified; G40.909 Epilepsy, unspecified, not intractable, without status epilepticus; M19.90 Unspecified osteoarthritis, unspecified site; F17.200 Nicotine dependence, unspecified, uncomplicated; Z79.4 Long term (current) use of insulin; Z79.1 Long term (current) use of non-steroidal anti-inflammatories (NSAID); Z79.82 Long term (current) use of aspirin; Z88.1 Allergy status to other antibiotic agents; Z88.2 Allergy status to sulfonamides; Z91.048 Other nonmedicinal substance allergy status; Z88.8 Allergy status to other drugs, medicaments and biological substances
CPT/HCPCS: 51798; 74020; 81003; 87086; 99284

== ENCOUNTER → 2016-12-03 | Outpatient (CLI) | payer MEDICARE, OTHER ==
--- NOTE | 2016-12-03 10:23 | XR ---
EXAMINATION TYPE: XR knee complete LT DATE OF EXAM: 12/03/2016 CLINICAL HISTORY: Left knee pain for years with difficulty walking. TECHNIQUE: Three views of the left knee are obtained. COMPARISON: Left knee x-ray November 21, 2013 FINDINGS: There is no acute fracture/dislocation evident in left knee. The tri-compartment joint sp aces appear within normal limits. The overlying soft tissue appears unremarkable. IMPRESSION: Unremarkable study. No significant change from prior.
== END | disposition home or self-care (01) ==
LOC: RADXRMAIN 09:14
PROVIDERS: ATTEND Nurse Practitioner Family
DX: M25.562 Pain in left knee (principal)

== ENCOUNTER 2017-02-19 09:36 | Emergency (ER) | payer MEDICARE, OTHER ==
[2017-02-19 09:42] VITALS: TEMP 97.4
[2017-02-19] MEDS ORDERED: SODIUM CHLORIDE 0.9% 1,000 ML IV STA (10:08)
[2017-02-19] MEDS ORDERED: IPRATROPIUM-ALBUTEROL 3 ML NEB INHALATION STA (10:09)
--- NOTE | 2017-02-19 10:16 | ED ---
Chest Pain HPI - General Chief Complaint: Chest Pain Stated Complaint: Chest Pain Time Seen by Provider: 02/19/17 10:03 Source: patient, RN notes reviewed, old records reviewed Mode of arrival: wheelchair Limitations: no limitations - History of Present Illness Initial Comments: Is a 46-year-old male presenting to the emergency Department chief complaint of chest pain. Patient reports of the similar he's had for many years. Patient was seen today by his shoe dresser, and had an echo done. They stated that everything was normal. He also reports that his blood sugar has been slightly elevated but he has not taken it. He does take metformin. He reports that this chest pain seems to be sharp and stabbing. He is been evaluated in the emergency department multiple times for similar complaints. Patient reports that he recently quit smoking, and last time he used a breathing treatment was a few days ago. He states he has been somewhat wheezy today. Patient denies any nausea or vomiting or abdominal pain. - Related Data Home Medications Medication Instructions Recorded Confirmed Loratadine [Claritin] 10 mg PO DAILY 08/15/14 02/19/17 metFORMIN HCL [metFORMIN HCL ER] 1,000 mg PO AC-SUPPER 08/15/14 02/19/17 Albuterol Nebulized [Ventolin 2.5 mg INHALATION RT-TID 07/03/15 02/19/17 Nebulized] Gabapentin [Neurontin] 800 mg PO TID 07/03/15 02/19/17 Tamsulosin HCl [Flomax] 0.4 mg PO DAILY 07/03/15 02/19/17 Dipyridamole-Aspirin 200-25 mg 1 tab PO BID 01/13/16 02/19/17 [Aggrenox 25MG -200MG] Ergocalciferol [Vitamin D2] 50,000 unit PO MO 01/13/16 02/19/17 Meloxicam [Mobic] 15 mg PO DAILY 01/13/16 02/19/17 Simvastatin [Zocor] 40 mg PO HS 01/13/16 02/19/17 Acetaminophen Tab [Tylenol Tab] 325 mg PO TID 02/19/17 02/19/17 Fenofibrate Nanocrystallized 48 mg PO DAILY 02/19/17 02/19/17 [Fenofibrate] Fluticasone/Salmeterol [Advair 1 puff INHALATION RT-BID 02/19/17 02/19/17 250-50 Diskus] Maalox 600mg Tab 600 mg PO BID 02/19/17 02/19/17 Montelukast [Singulair] 10 mg PO HS 02/19/17 02/19/17 OXcarbazepine [Trileptal] 300 mg PO BID 02/19/17 02/19/17 Omeprazole [PriLOSEC] 40 mg PO DAILY 02/19/17 02/19/17 Venlafaxine HCl ER [Effexor XR] 150 mg PO DAILY 02/19/17 02/19/17 Allergies Allergy/AdvReac Type Severity Reaction Status Date / Time ciprofloxacin Allergy Unknown Nausea Verified 02/19/17 10:37 dicyclomine HCl [From Bentyl] Allergy Unknown Dyspnea Verified 02/19/17 10:37 latex Allergy Unknown Rash/Hives Verified 02/19/17 10:37 Macrolide Antibiotics Allergy Unknown Nausea Verified 02/19/17 10:37 diphenhydramine HCl Allergy Anaphylaxis Verified 02/19/17 10:37 [From Benadryl] adhesive AdvReac Unknown Itching Verified 02/19/17 10:37 sulfamethoxazole AdvReac Unknown Unknown Verified 02/19/17 10:37 [From Bactrim] trimethoprim [From Bactrim] AdvReac Unknown Unknown Verified 02/19/17 10:37 Review of Systems ROS Statement: Those systems with pertinent positive or pertinent negative responses have been documented in the HPI. ROS Other: All systems not noted in ROS Statement are negative. EKG Findings - EKG Comments: EKG Findings:: EKG shows normal sinus rhythm, incomplete right bundle glynn block. Ventricular rate of 64 bpm. 140 ms. QRS duration 94 ms. QT QTc is 44/ 416. No evidence of ST elevation or T-wave inversion. No evidence of atrial ventricular arrhythmias. EKG is performed, at 1002. Past Medical History Past Medical History: Asthma, Chest Pain / Angina, COPD, CVA/TIA, Diabetes Mellitus, GERD/Reflux, Hearing Disorder / Deafness, Hyperlipidemia, Hypertension , Liver Disease, Osteoarthritis (OA), Pneumonia, Seizure Disorder, Sleep Apnea/ CPAP/BIPAP Additional Past Medical History / Comment(s): Cyst on kidney, uses cpap (22) History of Any Multi-Drug Resistant Organisms: None Reported Past Surgical History: Heart Catheterization, Orthopedic Surgery Additional Past Surgical History / Comment(s): Cysts removed, left thumb surgery Past Anesthesia/Blood Transfusion Reactions: Motion Sickness, Postoperative Nausea & Vomiting (PONV) Past Psychological History: Bipolar, Depression, Schizophrenia Smoking Status: Current every day smoker Past Alcohol Use History: None Reported, Rare Past Drug Use History: None Reported - Past Family History Brother(s) Family Medical History: Diabetes Mellitus Additional Family Medical History / Comment(s): Patient has 2 brothers. One from complications from diabetes. The second is alive with diabetes. Sister(s) Family Medical History: Cancer Additional Family Medical History / Comment(s): Patient has one sister with breast cancer. Patient does not have any children. Father Family Medical History: Cancer Additional Family Medical History / Comment(s): Father in his 40s or 50s from colon cancer. Mother Family Medical History: Cancer Additional Family Medical History / Comment(s): Mother at age 68 from lung cancer. General Exam - General Exam Comments Initial Comments: This is a 46-year-old male. No acute distress. Limitations: no limitations General appearance: alert, in no apparent distress Head exam: Present: atraumatic, normocephalic, normal inspection Eye exam: Present: normal appearance, PERRL, EOMI. Absent: scleral icterus, conjunctival injection, periorbital swelling ENT exam: Present: normal exam, mucous membranes moist Neck exam: Present: normal inspection. Absent: tenderness, meningismus, lymphadenopathy Respiratory exam: Present: normal lung sounds bilaterally, wheezes (Patient has some bilateral wheezing.). Absent: respiratory distress, rales, rhonchi, stridor Cardiovascular Exam: Present: regular rate, normal rhythm, normal heart sounds. Absent: systolic murmur, diastolic murmur, rubs, gallop, clicks GI/Abdominal exam: Present: soft, normal bowel sounds. Absent: distended, tenderness, guarding, rebound, rigid Extremities exam: Present: normal inspection, full ROM, normal capillary refill. Absent: tenderness, pedal edema, joint swelling, calf tenderness Back exam: Present: normal inspection Neurological exam: Present: alert, oriented X3, CN II-XII intact Psychiatric exam: Present: normal affect Skin exam: Present: warm, dry, intact, normal color. Absent: rash Course Vital Signs 02/19/17 02/19/1702/19/17 09:39 10:30 10:40 Temperature 97.4 F L Pulse Rate 77 64 66 Respiratory 18 17 Rate Blood Pressure 127/81 129/83 O2 Sat by Pulse 97 99 Oximetry 02/19/17 02/19/17 02/19/17 10:48 10:56 11:23 Temperature Pulse Rate 67 60 58 L Respiratory 17 17 Rate Blood Pressure 138/81 119/82 O2 Sat by Pulse 99 99 Oximetry Chest Pain MDM - MDM 46-year-old male chief complaint increased chest pain. He isn't having similar chest pain episodes per year. He was recently at his shoe dresser, today and had an echo cardiogram. That was reviewed to be normal. EKG was within normal limits today as well as a negative troponin, . Discussed that this is the patient's chronic chest pain, and the patient can follow-up with his shoe dresser as directed, and I did not believe it's any acute cardio injury.. He also did have some mild wheezing and relates that he recently did quit smoking. Patient was also given a DuoNeb treatment emergency department does have resolution of wheezing. Chest x-ray was reviewed and negative for any acute process. Patient will be discharged at this time with an inhaler for his wheezing. Discussed following up with primary care provider. Patient agrees to treatment plan will comply. Return parameters were discussed. Disposition Clinical Impression: Atypical chest pain Disposition: HOME SELF-CARE Condition: Good Instructions: Chest Pain (ED) Additional Instructions: Patient is follow-up with her primary care provider. Return to the emergency department if any alarming signs or symptoms occur. Continue to use at home breathing treatments as directed. Referrals: Ramya Saul MD [Primary Care Provider] - 1-2 days Time of Disposition: 11:41
[2017-02-19 10:27] LABS: Basophils % (A) 0 %; CH 32.6; CHCM 36.8; Eosinophils # (A) 0.3 k/uL (0-0.7); Eosinophils % (A) 5 %; HCT 43.5 % (39.0-53.0); HDW 2.71; Luc # (Auto) 0.18; Luc % (Auto) 3; Lymphocytes # (A) 1.4 k/uL (1.0-4.8); Lymphocytes % (A) 22 %; MCH 32.8 pg (25.0-35.0); MCHC 36.9 g/dL (31.0-37.0); MCV 88.9 fL (80.0-100.0); Mean Platelet Volume 7.2; Monocytes # (A) 0.4 k/uL (0-1.0); Monocytes % (A) 6 %; Neutrophils # (A) 4.3 k/uL (1.3-7.7); Neutrophils % (A) 65 %; WBC 6.6 k/uL (3.8-10.6)
[2017-02-19 10:38] LABS: ALT 81 U/L (21-72); AST 34 U/L (17-59); Alkaline Phosphatase 72 U/L (38-126); Anion Gap 6 mmol/L; Blood Urea Nitrogen 12 mg/dL (9-20); Calcium 9.3 mg/dL (8.4-10.2); Carbon Dioxide 25 mmol/L (22-30); Chloride 111 mmol/L (98-107); Glucose 129 mg/dL (74-99); Magnesium 1.8 mg/dL (1.6-2.3); Non-African American GFR(MDRD) >60 (>60 ml/min/1.73 sqM); Potassium 4.5 mmol/L (3.5-5.1); Sodium 142 mmol/L (137-145); Total Bilirubin 0.3 mg/dL (0.2-1.3); Total Protein 6.3 g/dL (6.3-8.2)
--- NOTE | 2017-02-19 10:43 | XR ---
EXAMINATION TYPE: XR chest 2V DATE OF EXAM: 02/19/2017 COMPARISON: 08/11/2016 HISTORY: Shortness of breath radiating down the right shoulder for months. History of COPD and hypert ension TECHNIQUE: Frontal and lateral views of the chest are obtained. FINDINGS: There is no focal air space opacity, pleural effusion, or pneumothorax seen. There is mil d pulmonary hyperinflation, unchanged from the prior. The cardiac silhouette size is within normal li mits. Unchanged mild wedging of 2 contiguous mid thoracic vertebrae is appreciated as well as mild de generative changes of the thoracic spine. IMPRESSION: No acute cardiopulmonary process, unchanged from the prior.
[2017-02-19 10:54] LABS: Creatine Kinase 275 U/L (55-170)
[2017-02-19 11:06] LABS: Troponin I <0.012 ng/mL (0.000-0.034)
[2017-02-19 11:12] LABS: Creatine Kinase MB 2.2 ng/mL (0.0-2.4)
[2017-02-19 11:22] LABS: Partial Thromboplastin Time 23.3 sec (22.0-30.0); Prothrombin Time 10.2 sec (9.0-12.0)
[2017-02-19] MEDS ORDERED: KETOROLAC 30 MG/ML 1 ML VIAL IVP STA (11:41)
[2017-02-19 11:53] VITALS: BP 138/84; PULSE 66; RESP 16
== END 2017-02-19 12:02 | disposition home or self-care (01) ==
LOC: EC 09:36
DX: G89.29 Other chronic pain (principal); R07.89 Other chest pain; R06.2 Wheezing; E11.65 Type 2 diabetes mellitus with hyperglycemia; E78.5 Hyperlipidemia, unspecified; J44.9 Chronic obstructive pulmonary disease, unspecified; I10 Essential (primary) hypertension; G40.909 Epilepsy, unspecified, not intractable, without status epilepticus; M19.90 Unspecified osteoarthritis, unspecified site; K21.9 Gastro-esophageal reflux disease without esophagitis; F32.9 Major depressive disorder, single episode, unspecified; Z87.891 Personal history of nicotine dependence; Z79.1 Long term (current) use of non-steroidal anti-inflammatories (NSAID); Z79.51 Long term (current) use of inhaled steroids; Z79.82 Long term (current) use of aspirin; Z79.84 Long term (current) use of oral hypoglycemic drugs; Z79.899 Other long term (current) drug therapy; Z88.1 Allergy status to other antibiotic agents; Z88.8 Allergy status to other drugs, medicaments and biological substances; Z91.040 Latex allergy status; Z91.09 Other allergy status, other than to drugs and biological substances; Z86.73 Personal history of transient ischemic attack (TIA), and cerebral infarction without residual deficits; Z87.01 Personal history of pneumonia (recurrent); Z83.3 Family history of diabetes mellitus; Z80.1 Family history of malignant neoplasm of trachea, bronchus and lung; Z95.818 Presence of other cardiac implants and grafts
CPT/HCPCS: 99285; 96374; 96361; 36415; 94640; 93005; 80053; 82550; 82553; 83735; 84484; 85025; 85610; 85730; 71020; J1885

== ENCOUNTER 2017-03-09 11:31 | Emergency (ER) | payer MEDICARE, OTHER ==
--- NOTE | 2017-03-09 12:11 | ED ---
General Adult HPI - General Stated complaint: abdominal pain Time Seen by Provider: 03/09/17 11:48 Source: RN notes reviewed, old records reviewed - History of Present Illness Initial comments: Patient 46-year-old male who is well-known to the emergency room presenting today with a chief complaint of abdominal chest pain. He does admit that pain started this morning when he woke up. He states that this is the same pain that is experienced in the past. States it is no different today. Patient admits to heartburn type feeling. She denies any other complaints or symptoms at this time. Patient denies any recent fever, chills, shortness of breath, back pain, vomiting, numbness or tingling, dysuria or hematuria, constipation or diarrhea, headaches or visual changes, or any other complaints. - Related Data Home Medications Medication Instructions Recorded Confirmed Loratadine [Claritin] 10 mg PO DAILY 08/15/14 03/09/17 metFORMIN HCL [metFORMIN HCL ER] 1,000 mg PO AC-SUPPER 08/15/14 03/09/17 Albuterol Nebulized [Ventolin 2.5 mg INHALATION RT-TID 07/03/15 03/09/17 Nebulized] Gabapentin [Neurontin] 800 mg PO TID 07/03/15 03/09/17 Tamsulosin HCl [Flomax] 0.4 mg PO DAILY 07/03/15 03/09/17 Dipyridamole-Aspirin 200-25 mg 1 tab PO BID 01/13/16 03/09/17 [Aggrenox 25MG -200MG] Ergocalciferol [Vitamin D2] 50,000 unit PO MO 01/13/16 03/09/17 Meloxicam [Mobic] 15 mg PO DAILY 01/13/16 03/09/17 Simvastatin [Zocor] 40 mg PO HS 01/13/16 03/09/17 Acetaminophen Tab [Tylenol Tab] 325 mg PO TID 02/19/17 03/09/17 Fenofibrate Nanocrystallized 48 mg PO DAILY 02/19/17 03/09/17 [Fenofibrate] Fluticasone/Salmeterol [Advair 1 puff INHALATION RT-BID 02/19/17 03/09/17 250-50 Diskus] Maalox 600mg Tab 600 mg PO BID 02/19/17 03/09/17 Montelukast [Singulair] 10 mg PO HS 02/19/17 03/09/17 OXcarbazepine [Trileptal] 300 mg PO BID 02/19/17 03/09/17 Omeprazole [PriLOSEC] 40 mg PO DAILY 02/19/17 03/09/17 Venlafaxine HCl ER [Effexor XR] 150 mg PO DAILY 02/19/17 03/09/17 Allergies Allergy/AdvReac Type Severity Reaction Status Date / Time ciprofloxacin Allergy Unknown Nausea Verified 03/09/17 11:43 dicyclomine HCl [From Bentyl] Allergy Unknown Dyspnea Verified 03/09/17 11:43 latex Allergy Unknown Rash/Hives Verified 03/09/17 11:43 Macrolide Antibiotics Allergy Unknown Nausea Verified 03/09/17 11:43 diphenhydramine HCl Allergy Anaphylaxis Verified 03/09/17 11:43 [From Benadryl] adhesive AdvReac Unknown Itching Verified 03/09/17 11:43 sulfamethoxazole AdvReac Unknown Unknown Verified 03/09/17 11:43 [From Bactrim] trimethoprim [From Bactrim] AdvReac Unknown Unknown Verified 03/09/17 11:43 Review of Systems ROS Statement: Those systems with pertinent positive or pertinent negative responses have been documented in the HPI. ROS Other: All systems not noted in ROS Statement are negative. Past Medical History Past Medical History: Asthma, Chest Pain / Angina, COPD, CVA/TIA, Diabetes Mellitus, GERD/Reflux, Hearing Disorder / Deafness, Hyperlipidemia, Hypertension , Liver Disease, Osteoarthritis (OA), Pneumonia, Seizure Disorder, Sleep Apnea/ CPAP/BIPAP Additional Past Medical History / Comment(s): Cyst on kidney, uses cpap (22) History of Any Multi-Drug Resistant Organisms: None Reported Past Surgical History: Heart Catheterization, Orthopedic Surgery Additional Past Surgical History / Comment(s): Cysts removed, left thumb surgery Past Anesthesia/Blood Transfusion Reactions: Motion Sickness, Postoperative Nausea & Vomiting (PONV) Past Psychological History: Bipolar, Depression, Schizophrenia Smoking Status: Current every day smoker Past Alcohol Use History: None Reported, Rare Past Drug Use History: None Reported - Past Family History Brother(s) Family Medical History: Diabetes Mellitus Additional Family Medical History / Comment(s): Patient has 2 brothers. One from complications from diabetes. The second is alive with diabetes. Sister(s) Family Medical History: Cancer Additional Family Medical History / Comment(s): Patient has one sister with breast cancer. Patient does not have any children. Father Family Medical History: Cancer Additional Family Medical History / Comment(s): Father in his 40s or 50s from colon cancer. Mother Family Medical History: Cancer Additional Family Medical History / Comment(s): Mother at age 68 from lung cancer. General Exam - General Exam Comments Initial Comments: General: The patient is awake and alert, in no distress, and does not appear acutely ill. Eye: Pupils are equal, round and reactive to light, extra-ocular movements are intact. No nystagmus. There is normal conjunctiva bilaterally. No signs of icterus. Ears, nose, mouth and throat: There are moist mucous membranes and no oral lesions. Neck: The neck is supple, there is no tenderness or JVD. Cardiovascular: There is a regular rate and rhythm. No murmur, rub or gallop is appreciated. Patient is tender to palpation anterior chest wall. Respiratory: Lungs are clear to auscultation, respirations are non-labored, breath sounds are equal. No wheezes, stridor, rales, or rhonchi. Gastrointestinal: Normal appearance abdomen. Normal bowel sounds. Abdomen soft on palpation. Patient does have tenderness mildly diffuse throughout the abdomen. No rebound tenderness. No guarding. No CVA tenderness. Musculoskeletal: Normal ROM, no tenderness. Strength 5/5. Sensation intact. Pulses equal bilaterally 2+. Neurological: A&O x 3. CN II-XII intact, There are no obvious motor or sensory deficits. Coordination appears grossly intact. Speech is normal. Skin: Skin is warm and dry and no rashes or lesions are noted. Psychiatric: Cooperative, appropriate mood & affect, normal judgment. EKG Findings - EKG Comments: EKG Findings:: EKG performed at 1204: Shows normal sinus rhythm at 65 bpm. VA interval 134. QRS 104. QT/QTc 402/418. Shows an incomplete right bundle branch block. No change from previous EKG on 02/19/2017. Medical Decision Making - Medical Decision Making Patient's recent visit to the emergency room was reviewed had negative cardiac enzymes. Negative chest x-ray. Patient does have multiple visits for same complaint. He states this feels the same. Patient's pain is reproduced on palpation. EKG shows no change. Disposition Clinical Impression: Chest wall syndrome Disposition: HOME SELF-CARE Condition: Stable Referrals: Ramya Saul MD [Primary Care Provider] - 1-2 days Time of Disposition: 12:31
[2017-03-09 14:14] VITALS: BP 128/83; PULSE 74; RESP 16; TEMP 98.2
== END 2017-03-09 13:00 | disposition home or self-care (01) ==
LOC: EC 11:31
DX: R07.1 Chest pain on breathing (principal); R12 Heartburn; R10.817 Generalized abdominal tenderness; E78.5 Hyperlipidemia, unspecified; I10 Essential (primary) hypertension; E11.9 Type 2 diabetes mellitus without complications; K21.9 Gastro-esophageal reflux disease without esophagitis; J44.9 Chronic obstructive pulmonary disease, unspecified; M19.90 Unspecified osteoarthritis, unspecified site; G40.909 Epilepsy, unspecified, not intractable, without status epilepticus; F32.9 Major depressive disorder, single episode, unspecified; F17.200 Nicotine dependence, unspecified, uncomplicated; Z79.1 Long term (current) use of non-steroidal anti-inflammatories (NSAID); Z79.51 Long term (current) use of inhaled steroids; Z79.84 Long term (current) use of oral hypoglycemic drugs; Z79.82 Long term (current) use of aspirin; Z79.899 Other long term (current) drug therapy; Z88.1 Allergy status to other antibiotic agents; Z88.8 Allergy status to other drugs, medicaments and biological substances; Z91.040 Latex allergy status; Z91.09 Other allergy status, other than to drugs and biological substances; Z86.73 Personal history of transient ischemic attack (TIA), and cerebral infarction without residual deficits; Z87.01 Personal history of pneumonia (recurrent); Z95.818 Presence of other cardiac implants and grafts
CPT/HCPCS: 93005; 99284

== ENCOUNTER 2017-05-25 10:38 | Emergency (ER) | payer MEDICARE, OTHER ==
--- NOTE | 2017-05-25 11:13 | ED ---
General Adult HPI - General Stated complaint: Cyst Time Seen by Provider: 05/25/17 10:40 Source: patient, RN notes reviewed Mode of arrival: wheelchair Limitations: no limitations - History of Present Illness Initial comments: This is a 47-year-old male who presents emergency Department complaining that his blood pressure might be high and he would like it checked. Patient also states he would like to have his cholesterol checked in case the time period and the third reason he is here is because he has a small scratch on the back of his legs he wants to know if it's infected. Patient denies any fever or chills patient denies any chest pain difficulty breathing shortness of breath per patient denies abdominal pain patient denies nausea vomiting diarrhea. Patient denies any headache patient denies numbness weakness. Patient denies any lightheadedness dizziness or near syncopal episode. - Related Data Home Medications Medication Instructions Recorded Confirmed Loratadine [Claritin] 10 mg PO DAILY 08/15/14 05/04/17 metFORMIN HCL [metFORMIN HCL ER] 1,000 mg PO AC-SUPPER 08/15/14 05/04/17 Albuterol Nebulized [Ventolin 2.5 mg INHALATION RT-TID 07/03/15 05/04/17 Nebulized] Gabapentin [Neurontin] 800 mg PO TID 07/03/15 05/04/17 Tamsulosin HCl [Flomax] 0.4 mg PO DAILY 07/03/15 05/04/17 Dipyridamole-Aspirin 200-25 mg 1 tab PO BID 01/13/16 05/04/17 [Aggrenox 25MG -200MG] Ergocalciferol [Vitamin D2] 50,000 unit PO MO 01/13/16 05/04/17 Meloxicam [Mobic] 15 mg PO DAILY 01/13/16 05/04/17 Simvastatin [Zocor] 40 mg PO HS 01/13/16 05/04/17 Acetaminophen Tab [Tylenol Tab] 325 mg PO TID 02/19/17 05/04/17 Fenofibrate Nanocrystallized 48 mg PO DAILY 02/19/17 05/04/17 [Fenofibrate] Fluticasone/Salmeterol [Advair 1 puff INHALATION RT-BID 02/19/17 05/04/17 250-50 Diskus] Maalox 600mg Tab 600 mg PO BID 02/19/17 05/04/17 Montelukast [Singulair] 10 mg PO HS 02/19/17 05/04/17 OXcarbazepine [Trileptal] 300 mg PO BID 02/19/17 05/04/17 Omeprazole [PriLOSEC] 40 mg PO DAILY 02/19/17 05/04/17 Venlafaxine HCl ER [Effexor XR] 150 mg PO DAILY 02/19/17 05/04/17 Acetaminophen Tab [Tylenol Tab] 1,000 mg PO Q6H PRN 05/04/17 05/04/17 Insulin NPL/Insulin Lispro 30 unit SQ DAILY@1800 05/04/17 05/04/17 [humaLOG MIX 75-25 VIAL] Insulin NPL/Insulin Lispro 50 unit SQ DAILY@0700 05/04/17 05/04/17 [humaLOG MIX 75-25 VIAL] Nicotine 21Mg/24Hr Patch [Habitrol 1 patch TRANSDERM DAILY 05/04/17 05/04/17 21Mg/24Hr Patch] Triamcinolone 0.025% Cream 1 applic TOPICAL BID 05/04/17 05/04/17 [Kenalog 0.025% Cream] Allergies Allergy/AdvReac Type Severity Reaction Status Date / Time ciprofloxacin Allergy Unknown Nausea Verified 05/04/17 13:52 dicyclomine HCl [From Bentyl] Allergy Unknown Dyspnea Verified 05/04/17 13:52 latex Allergy Unknown Rash/Hives Verified 05/04/17 13:52 Macrolide Antibiotics Allergy Unknown Nausea Verified 05/04/17 13:52 diphenhydramine HCl Allergy Anaphylaxis Verified 05/04/17 13:52 [From Benadryl] adhesive AdvReac Unknown Itching Verified 05/04/17 13:52 sulfamethoxazole AdvReac Unknown Unknown Verified 05/04/17 13:52 [From Bactrim] trimethoprim [From Bactrim] AdvReac Unknown Unknown Verified 05/04/17 13:52 Review of Systems ROS Statement: Those systems with pertinent positive or pertinent negative responses have been documented in the HPI. ROS Other: All systems not noted in ROS Statement are negative. Past Medical History Past Medical History: Asthma, Chest Pain / Angina, COPD, CVA/TIA, Diabetes Mellitus, GERD/Reflux, Hearing Disorder / Deafness, Hyperlipidemia, Hypertension , Liver Disease, Osteoarthritis (OA), Pneumonia, Seizure Disorder, Sleep Apnea/ CPAP/BIPAP Additional Past Medical History / Comment(s): Cyst on kidney, uses cpap (22) History of Any Multi-Drug Resistant Organisms: None Reported Past Surgical History: Heart Catheterization, Orthopedic Surgery Additional Past Surgical History / Comment(s): Cysts removed, left thumb surgery Past Anesthesia/Blood Transfusion Reactions: Motion Sickness, Postoperative Nausea & Vomiting (PONV) Past Psychological History: Bipolar, Depression, Schizophrenia Smoking Status: Current every day smoker Past Alcohol Use History: None Reported, Rare Past Drug Use History: None Reported - Past Family History Brother(s) Family Medical History: Diabetes Mellitus Additional Family Medical History / Comment(s): Patient has 2 brothers. One from complications from diabetes. The second is alive with diabetes. Sister(s) Family Medical History: Cancer Additional Family Medical History / Comment(s): Patient has one sister with breast cancer. Patient does not have any children. Father Family Medical History: Cancer Additional Family Medical History / Comment(s): Father in his 40s or 50s from colon cancer. Mother Family Medical History: Cancer Additional Family Medical History / Comment(s): Mother at age 68 from lung cancer. General Exam - General Exam Comments Initial Comments: GENERAL: Patient is well-developed and well-nourished. Patient is nontoxic and well- hydrated and is in no acute distress. ENT: Neck is soft and supple. No significant lymphadenopathy is noted. Moist mucous membranes. EYES: The sclera were anicteric and conjunctiva were pink and moist. Extraocular movements were intact and pupils were equal round and reactive to light. Eyelids were unremarkable. SKIN: Patient has a small abrasion to the back of his leg that does not look infected it is scabbed over. NEUROLOGIC: Patient is alert and oriented x3. Cranial nerves II through XII are grossly intact. Motor and sensory are also intact. Normal speech, volume and content. Symmetrical smile. Cerebellar exam grossly intact. MUSCULOSKELETAL: Normal extremities with adequate strength and full range of motion. No lower extremity swelling or edema. No calf tenderness. LYMPHATICS: No significant lymphadenopathy is noted PSYCHIATRIC: Normal psychiatric evaluation. Limitations: no limitations Course Vital Signs 05/25/17 11:04 Temperature 97.7 F Pulse Rate 67 Respiratory 18 Rate Blood Pressure 114/71 O2 Sat by Pulse 99 Oximetry Disposition Clinical Impression: Superficial abrasion Disposition: HOME SELF-CARE Instructions: Abrasion (ED) Additional Instructions: Patient can apply antibiotic ointment to the area twice a day Referrals: Ramya Saul MD [Primary Care Provider] - 1-2 days Time of Disposition: 11:13
[2017-05-25 11:15] VITALS: BP 126/72; PULSE 76; RESP 18; TEMP 99.2
== END 2017-05-25 11:22 | disposition home or self-care (01) ==
LOC: EC 10:38
DX: S80.811A Abrasion, right lower leg, initial encounter (principal); J44.9 Chronic obstructive pulmonary disease, unspecified; E11.9 Type 2 diabetes mellitus without complications; E78.5 Hyperlipidemia, unspecified; I10 Essential (primary) hypertension; M19.90 Unspecified osteoarthritis, unspecified site; G40.909 Epilepsy, unspecified, not intractable, without status epilepticus; F31.9 Bipolar disorder, unspecified; F17.200 Nicotine dependence, unspecified, uncomplicated; Z88.1 Allergy status to other antibiotic agents; Z91.040 Latex allergy status; Z88.8 Allergy status to other drugs, medicaments and biological substances; Z88.2 Allergy status to sulfonamides; Z91.048 Other nonmedicinal substance allergy status; Z79.84 Long term (current) use of oral hypoglycemic drugs; Z79.1 Long term (current) use of non-steroidal anti-inflammatories (NSAID); Z79.51 Long term (current) use of inhaled steroids; Z79.4 Long term (current) use of insulin; Z79.899 Other long term (current) drug therapy; X58.XXXA Exposure to other specified factors, initial encounter
CPT/HCPCS: 72141; 99282

== ENCOUNTER → 2017-05-25 | Outpatient (CLI) | payer MEDICARE, OTHER ==
--- NOTE | 2017-05-25 10:41 | MR ---
EXAMINATION TYPE: MR cervical spine wo con DATE OF EXAM: 05/25/2017 COMPARISON: NONE HISTORY: Pain TECHNIQUE: Multiplanar, multisequence images of the cervical spine were acquired. C2-C3: No evidence for degenerative disc disease. No disc bulge/herniation or protrusion. No Canal stenosis. Foramina are patent bilaterally. C3-C4: No evidence for degenerative disc disease. No disc bulge/herniation or protrusion. No Canal stenosis. Foramina are patent bilaterally. C4-C5: Degenerative disc disease with disc bulging centrally and posterior spondylosis. Uncovertebral joint hypertrophy. No canal stenosis or foraminal encroachment. C5-C6: Disc disease with broad-based disc bulging and uncovertebral joint hypertrophy. There is mild central stenosis and moderate to severe bilateral foraminal encroachment with facet arthropathy. C6-C7: No evidence for degenerative disc disease. No disc bulge/herniation or protrusion. No Canal stenosis. Foramina are patent bilaterally. C7-T1: No evidence for degenerative disc disease. No disc bulge/herniation or protrusion. No Canal stenosis. Foramina are patent bilaterally. Cervical segments are intact. There is normal alignment. Cervical spinal cord is of normal signal. Craniovertebral junction relationships are within normal limits. IMPRESSION: 1. C5-C6: Disc disease with broad-based disc bulging and uncovertebral joint hypertrophy. There is mi ld central stenosis and moderate to severe bilateral foraminal encroachment with facet arthropathy. 2. Disc bulging C4-C5 with hypertrophic cervical spondylosis but no canal stenosis or foraminal encro achment.
== END | disposition home or self-care (01) ==
LOC: RADMRIMAIN 09:09
PROVIDERS: ATTEND Family Medicine
DX: M48.02 Spinal stenosis, cervical region (principal); M50.221 Other cervical disc displacement at C4-C5 level; M50.322 Other cervical disc degeneration at C5-C6 level; M47.812 Spondylosis without myelopathy or radiculopathy, cervical region; M46.92 Unspecified inflammatory spondylopathy, cervical region
CPT/HCPCS: 72141

== ENCOUNTER 2017-10-25 01:20 | Observation (INO) | payer MEDICARE, OTHER ==
[2017-10-25] MEDS ORDERED: ASPIRIN 81 MG PO STA (01:48)
[2017-10-25] MEDS ORDERED: NITROGLYCERIN OINT 1 INCH/GM PACKET TOPICAL STA (01:48)
[2017-10-25] MEDS ORDERED: SODIUM CHLORIDE 0.9% 1,000 ML IV STA (01:48)
[2017-10-25] MEDS ORDERED: MORPHINE SULFATE 4 MG/0.8 ML SYRINGE (INJ) IV STA (01:48)
[2017-10-25] MEDS ORDERED: ONDANSETRON 4 MG/2 ML VIAL IVP STA (01:48)
--- NOTE | 2017-10-25 01:51 | ED ---
Chest Pain HPI - General Chief Complaint: Chest Pain Stated Complaint: chest pain Time Seen by Provider: 10/25/17 01:37 Source: patient Mode of arrival: ambulatory Limitations: no limitations - History of Present Illness Initial Comments: 47 years old male comes in with the chest pain ongoing for 2 days, it got worse towards ago pain is mostly on the right side of the chest and radiates down the right arm his right arm is tingling now is also complaining about shortness of breath chest pain gets worse with deep breaths he been nauseous no vomiting though denies any cold sweats. He does have a history of COPD he has smoked for greater than 30 years now also has diabetes and sleep apnea. He denies any headaches no blurred vision no slurred speech now abdominal pain no frequency urgency dysuria no symptoms of TIA or CVA - Related Data Home Medications Medication Instructions Recorded Confirmed Loratadine [Claritin] 10 mg PO DAILY 08/15/14 05/25/17 metFORMIN HCL [metFORMIN HCL ER] 1,000 mg PO AC-SUPPER 08/15/14 05/25/17 Albuterol Nebulized [Ventolin 2.5 mg INHALATION RT-TID 07/03/15 05/25/17 Nebulized] Gabapentin [Neurontin] 800 mg PO TID 07/03/15 05/25/17 Tamsulosin HCl [Flomax] 0.4 mg PO DAILY 07/03/15 05/25/17 Dipyridamole-Aspirin 200-25 mg 1 tab PO BID 01/13/16 05/25/17 [Aggrenox 25MG -200MG] Ergocalciferol [Vitamin D2] 50,000 unit PO MO 01/13/16 05/25/17 Meloxicam [Mobic] 15 mg PO DAILY 01/13/16 05/25/17 Simvastatin [Zocor] 40 mg PO HS 01/13/16 05/25/17 Acetaminophen Tab [Tylenol Tab] 325 mg PO TID 02/19/17 05/25/17 Fenofibrate Nanocrystallized 48 mg PO DAILY 02/19/17 05/25/17 [Fenofibrate] Fluticasone/Salmeterol [Advair 1 puff INHALATION RT-BID 02/19/17 05/25/17 250-50 Diskus] Maalox 600mg Tab 600 mg PO BID 02/19/17 05/25/17 Montelukast [Singulair] 10 mg PO HS 02/19/17 05/25/17 OXcarbazepine [Trileptal] 300 mg PO BID 02/19/17 05/25/17 Omeprazole [PriLOSEC] 40 mg PO DAILY 02/19/17 05/25/17 Venlafaxine HCl ER [Effexor XR] 150 mg PO DAILY 02/19/17 05/25/17 Acetaminophen Tab [Tylenol Tab] 1,000 mg PO Q6H PRN 05/04/17 05/25/17 Insulin NPL/Insulin Lispro 30 unit SQ DAILY@1800 05/04/17 05/25/17 [humaLOG MIX 75-25 VIAL] Insulin NPL/Insulin Lispro 50 unit SQ DAILY@0700 05/04/17 05/25/17 [humaLOG MIX 75-25 VIAL] Nicotine 21Mg/24Hr Patch [Habitrol 1 patch TRANSDERM DAILY 05/04/17 05/25/17 21Mg/24Hr Patch] Triamcinolone 0.025% Cream 1 applic TOPICAL BID 05/04/17 05/25/17 [Kenalog 0.025% Cream] Allergies Allergy/AdvReac Type Severity Reaction Status Date / Time ciprofloxacin Allergy Unknown Nausea Verified 10/25/17 01:27 dicyclomine HCl [From Bentyl] Allergy Unknown Dyspnea Verified 10/25/17 01:27 latex Allergy Unknown Rash/Hives Verified 10/25/17 01:27 Macrolide Antibiotics Allergy Unknown Nausea Verified 10/25/17 01:27 diphenhydramine HCl Allergy Anaphylaxis Verified 10/25/17 01:27 [From Benadryl] adhesive AdvReac Unknown Itching Verified 10/25/17 01:27 sulfamethoxazole AdvReac Unknown Unknown Verified 10/25/17 01:27 [From Bactrim] trimethoprim [From Bactrim] AdvReac Unknown Unknown Verified 10/25/17 01:27 Review of Systems ROS Statement: Those systems with pertinent positive or pertinent negative responses have been documented in the HPI. ROS Other: All systems not noted in ROS Statement are negative. Past Medical History Past Medical History: Asthma, Chest Pain / Angina, COPD, CVA/TIA, Diabetes Mellitus, GERD/Reflux, Hearing Disorder / Deafness, Hyperlipidemia, Hypertension , Liver Disease, Osteoarthritis (OA), Pneumonia, Seizure Disorder, Sleep Apnea/ CPAP/BIPAP Additional Past Medical History / Comment(s): Cyst on kidney, uses cpap (22) History of Any Multi-Drug Resistant Organisms: None Reported Past Surgical History: Heart Catheterization, Orthopedic Surgery Additional Past Surgical History / Comment(s): Cysts removed, left thumb surgery Past Anesthesia/Blood Transfusion Reactions: Motion Sickness, Postoperative Nausea & Vomiting (PONV) Past Psychological History: Bipolar, Depression, Schizophrenia Smoking Status: Current every day smoker Past Alcohol Use History: Rare Past Drug Use History: Marijuana - Past Family History Brother(s) Family Medical History: Diabetes Mellitus Additional Family Medical History / Comment(s): Patient has 2 brothers. One from complications from diabetes. The second is alive with diabetes. Sister(s) Family Medical History: Cancer Additional Family Medical History / Comment(s): Patient has one sister with breast cancer. Patient does not have any children. Father Family Medical History: Cancer Additional Family Medical History / Comment(s): Father in his 40s or 50s from colon cancer. Mother Family Medical History: Cancer Additional Family Medical History / Comment(s): Mother at age 68 from lung cancer. General Exam - General Exam Comments Initial Comments: General: The patient is awake and alert, in mild distress, and does not appear acutely ill. Skin: Skin is warm and dry and no rashes or lesions are noted. Eye: Pupils are equal, round and reactive to light, extra-ocular movements are intact; there is normal conjunctiva bilaterally. Ears, nose, mouth and throat: There are moist mucous membranes and no oral lesions. Neck: The neck is supple, there is no tenderness or JVD. Cardiovascular: There is a regular rate and rhythm. No murmur, rub or gallop is appreciated. Respiratory: To auscultation bilateral, family consistent with the some mild to moderate COPD Gastrointestinal: Soft, non-distended, non-tender abdomen without masses or organomegaly noted. There is no rebound or guarding present. Bowel sounds are unremarkable. Back: There is no tenderness to palpation in the midline. There is no obvious deformity. Musculoskeletal: Normal ROM, no tenderness, There is no pedal edema. There is no calf tenderness or swelling. No cords were appreciated. Neurological: CN II-XII intact, Cranial nerves III through XII are intact. There are no obvious motor or sensory deficits. Coordination appears grossly intact. Speech is normal. Psychiatric: Cooperative, appropriate mood & affect, normal judgment. Limitations: no limitations Course Vital Signs 10/25/17 10/25/17 01:21 02:26 Temperature 97.2 F L Pulse Rate 88 68 Respiratory 18 20 Rate Blood Pressure 128/85 108/75 O2 Sat by Pulse 98 98 Oximetry I am EKG is normal sinus rhythm ventricular rate is 69 MI interval is 126 QRS duration is 100 QT/QTc is 46/435 review of this EKG reveals some T-wave flattening in lead [address]VL no ST elevation or ST depression noticed any other leads Reassessment noticed CBC, INR, d-dimer, comp his metabolic panel, EKG, troponin are unremarkable Disposition Referrals: Ramya Saul MD [Primary Care Provider] - 1-2 days
[2017-10-25 01:58] LABS: Basophils % (A) 0 %; Eosinophils # (A) 0.5 k/uL (0-0.7); Eosinophils % (A) 5 %; HCT 45.5 % (39.0-53.0); Lymphocytes # (A) 2.8 k/uL (1.0-4.8); Lymphocytes % (A) 30 %; MCH 30.7 pg (25.0-35.0); MCHC 35.1 g/dL (31.0-37.0); MCV 87.6 fL (80.0-100.0); Mean Platelet Volume 7.5; Monocytes # (A) 0.6 k/uL (0-1.0); Monocytes % (A) 7 %; Neutrophils # (A) 5.2 k/uL (1.3-7.7); Neutrophils % (A) 56 %; Platelet Count 222 k/uL (150-450); RDW 12.7 % (11.5-15.5); WBC 9.4 k/uL (3.8-10.6)
[2017-10-25 02:07] LABS: ALT 58 U/L (21-72); AST 31 U/L (17-59); Albumin 4.5 g/dL (3.5-5.0); Alkaline Phosphatase 82 U/L (38-126); Anion Gap 15 mmol/L; Blood Urea Nitrogen 11 mg/dL (9-20); Calcium 10.3 mg/dL (8.4-10.2); Carbon Dioxide 21 mmol/L (22-30); Chloride 110 mmol/L (98-107); Glucose 81 mg/dL (74-99); Magnesium 1.9 mg/dL (1.6-2.3); Potassium 4.2 mmol/L (3.5-5.1); Sodium 146 mmol/L (137-145); Total Bilirubin 0.2 mg/dL (0.2-1.3); Total Protein 6.8 g/dL (6.3-8.2)
[2017-10-25 02:10] LABS: Creatine Kinase 181 U/L (55-170); D-Dimer 0.39 mg/L FEU (<0.60); INR 0.9 (<1.2); Partial Thromboplastin Time 22.8 sec (22.0-30.0); Prothrombin Time 9.4 sec (9.0-12.0)
[2017-10-25 02:23] LABS: Troponin I <0.012 ng/mL (0.000-0.034)
--- NOTE | 2017-10-25 02:25 | XR ---
EXAMINATION TYPE: XR chest 2V DATE OF EXAM: 10/25/2017 COMPARISON: 02/19/2017 HISTORY: Chest pain TECHNIQUE: Frontal and lateral views of the chest are obtained. FINDINGS: Heart and mediastinum are normal. Lungs are clear. Diaphragm is normal. Bony thorax is int act. There are chest leads. IMPRESSION: Normal chest no change.
[2017-10-25] MEDS ORDERED: MORPHINE SULFATE 4 MG/0.8 ML SYRINGE (INJ) IV PRN (03:49)
[2017-10-25] MEDS ORDERED: NITROGLYCERIN SL TABS 0.4 MG TAB SUBLINGUAL PRN (03:49)
[2017-10-25 07:45] LABS: Glucose,Whole Blood 134 mg/dL (75-99)
[2017-10-25] MEDS ORDERED: SYMBICORT 80-4.5 MCG INHALER INHALATION SCH (08:00)
[2017-10-25 08:28] LABS: Creatine Kinase 131 U/L (55-170)
[2017-10-25 08:38] LABS: Creatine Kinase MB 1.4 ng/mL (0.0-2.4); Troponin I <0.012 ng/mL (0.000-0.034)
--- NOTE | 2017-10-25 08:52 | P.CRDCN ---
History of Present Illness Consult date: 10/25/17 Chief complaint: Chest pain History of present illness: This is a pleasant 47-year-old gentleman who sees Dr. Goel in the office on regular basis with a past medical history significant for diabetes on insulin as well as history of smoking with no documented history of coronary artery disease presented to the hospital complaining of chest discomfort. He was in his usual state of health until yesterday when he was sitting at home and he tried to use his right arm and lift the right arm above the head when he started experiencing discomfort in the chest mainly over right side of the chest without any shortness of breath, dizziness or lightheadedness, sweating, or syncope. The discomfort was described by him as a sharp kind of discomfort. The patient is not aware of any prior history of coronary artery disease and he stated that he never had a heart catheterization in the past. Looking at his previous medical records indicated that he had a stress test back in 2013 and that was unremarkable. During this admission, the EKG showed sinus rhythm with nonspecific changes. We have only one set of cardiac enzyme came in to be unremarkable. Clearly the patient is experiencing right sided chest discomfort when I moved his arm and left arm above his head. Past Medical History Past Medical History: Asthma, Chest Pain / Angina, COPD, CVA/TIA, Diabetes Mellitus, GERD/Reflux, Hearing Disorder / Deafness, Hyperlipidemia, Hypertension , Liver Disease, Osteoarthritis (OA), Pneumonia, Seizure Disorder, Sleep Apnea/ CPAP/BIPAP Additional Past Medical History / Comment(s): Cyst on kidney, uses cpap (22) History of Any Multi-Drug Resistant Organisms: None Reported Past Surgical History: Heart Catheterization, Orthopedic Surgery Additional Past Surgical History / Comment(s): Cysts removed, left thumb surgery Past Anesthesia/Blood Transfusion Reactions: Motion Sickness, Postoperative Nausea & Vomiting (PONV) Past Psychological History: Bipolar, Depression, Schizophrenia Smoking Status: Current every day smoker Past Alcohol Use History: Rare Past Drug Use History: Marijuana - Past Family History Brother(s) Family Medical History: Diabetes Mellitus Additional Family Medical History / Comment(s): Patient has 2 brothers. One from complications from diabetes. The second is alive with diabetes. Sister(s) Family Medical History: Cancer Additional Family Medical History / Comment(s): Patient has one sister with breast cancer. Patient does not have any children. Father Family Medical History: Cancer Additional Family Medical History / Comment(s): Father in his 40s or 50s from colon cancer. Mother Family Medical History: Cancer Additional Family Medical History / Comment(s): Mother at age 68 from lung cancer. Medications and Allergies Home Medications Medication Instructions Recorded Confirmed Type Loratadine [Claritin] 10 mg PO DAILY 08/15/14 10/25/17 History metFORMIN HCL [metFORMIN HCL ER] 1,000 mg PO AC-SUPPER 08/15/14 10/25/17 History Albuterol Nebulized [Ventolin 2.5 mg INHALATION RT-TID 07/03/15 10/25/17 History Nebulized] Gabapentin [Neurontin] 800 mg PO TID 07/03/15 10/25/17 History Tamsulosin HCl [Flomax] 0.4 mg PO DAILY 07/03/15 10/25/17 History Dipyridamole-Aspirin 200-25 mg 1 tab PO BID 01/13/16 10/25/17 History [Aggrenox 25MG -200MG] Ergocalciferol [Vitamin D2] 50,000 unit PO MO 01/13/16 10/25/17 History Meloxicam [Mobic] 15 mg PO DAILY 01/13/16 10/25/17 History Simvastatin [Zocor] 40 mg PO HS 01/13/16 10/25/17 History Acetaminophen Tab [Tylenol Tab] 325 mg PO TID 02/19/17 10/25/17 History Fenofibrate Nanocrystallized 48 mg PO DAILY 02/19/17 10/25/17 History [Fenofibrate] Fluticasone/Salmeterol [Advair 1 puff INHALATION RT-BID 02/19/17 10/25/17 History 250-50 Diskus] Maalox 600mg Tab 600 mg PO BID 02/19/17 10/25/17 History Montelukast [Singulair] 10 mg PO HS 02/19/17 10/25/17 History OXcarbazepine [Trileptal] 300 mg PO BID 02/19/17 10/25/17 History Omeprazole [PriLOSEC] 40 mg PO DAILY 02/19/17 10/25/17 History Venlafaxine HCl ER [Effexor XR] 150 mg PO DAILY 02/19/17 10/25/17 History Acetaminophen Tab [Tylenol Tab] 1,000 mg PO Q6H PRN 05/04/17 10/25/17 History Insulin NPL/Insulin Lispro 30 unit SQ DAILY@1800 05/04/17 10/25/17 History [humaLOG MIX 75-25 VIAL] Insulin NPL/Insulin Lispro 50 unit SQ DAILY@0700 05/04/17 10/25/17 History [humaLOG MIX 75-25 VIAL] Nicotine 21Mg/24Hr Patch [Habitrol 1 patch TRANSDERM DAILY 05/04/17 10/25/17 History 21Mg/24Hr Patch] Triamcinolone 0.025% Cream 1 applic TOPICAL BID 05/04/17 10/25/17 History [Kenalog 0.025% Cream] Allergies Allergy/AdvReac Type Severity Reaction Status Date / Time ciprofloxacin Allergy Unknown Nausea Verified 10/25/17 01:27 dicyclomine HCl [From Bentyl] Allergy Unknown Dyspnea Verified 10/25/17 01:27 latex Allergy Unknown Rash/Hives Verified 10/25/17 01:27 Macrolide Antibiotics Allergy Unknown Nausea Verified 10/25/17 01:27 diphenhydramine HCl Allergy Anaphylaxis Verified 10/25/17 01:27 [From Benadryl] adhesive AdvReac Unknown Itching Verified 10/25/17 01:27 sulfamethoxazole AdvReac Unknown Unknown Verified 10/25/17 01:27 [From Bactrim] trimethoprim [From Bactrim] AdvReac Unknown Unknown Verified 10/25/17 01:27 Physical Exam Vitals: Vital Signs Temp Pulse Resp BP Pulse Ox 10/25/17 07:00 64 20 114/78 98 10/25/17 05:00 64 20 116/73 97 10/25/17 04:00 98 18 122/84 100 10/25/17 03:00 86 20 172/83 97 10/25/17 02:26 68 20 108/75 98 10/25/17 01:21 97.2 F L 88 18 128/85 98 Intake and Output 10/24/17 10/25/17 10/25/17 22:59 06:59 14:59 Other: Weight 83.461 kg - Constitutional General appearance: no acute distress - Respiratory Respiratory: bilateral: CTA - Cardiovascular Rhythm: regular Heart sounds: normal: S1, S2 Results 10/25/17 01:35 10/25/17 01:35 Cardiac Enzymes 10/25/17 10/25/17 10/25/17 Range/Units 01:35 01:35 07:46 AST 31 (17-59) U/L CK-MB (CK-2) 2.0 1.4 (0.0-2.4) ng/mL Troponin I <0.012 <0.012 (0.000-0.034) ng/mL Coagulation 10/25/17 Range/Units 01:35 PT 9.4 (9.0-12.0) sec APTT 22.8 (22.0-30.0) sec CBC 10/25/17 Range/Units 01:35 WBC 9.4 (3.8-10.6) k/uL RBC 5.20 (4.30-5.90) m/uL Hgb 16.0 (13.0-17.5) gm/dL Hct 45.5 (39.0-53.0) % Plt Count 222 (150-450) k/uL Comprehensive Metabolic Panel 10/25/17 Range/Units 01:35 Sodium 146 H (137-145) mmol/L Potassium 4.2 (3.5-5.1) mmol/L Chloride 110 H (98-107) mmol/L Carbon Dioxide 21 L (22-30) mmol/L BUN 11 (9-20) mg/dL Creatinine 0.70 (0.66-1.25) mg/dL Glucose 81 (74-99) mg/dL Calcium 10.3 H (8.4-10.2) mg/dL AST 31 (17-59) U/L ALT 58 (21-72) U/L Alkaline Phosphatase 82 (38-126) U/L Total Protein 6.8 (6.3-8.2) g/dL Albumin 4.5 (3.5-5.0) g/dL Current Medications Generic Name Dose Route Start Last Admin Trade Name Freq PRN Reason Stop Dose Admin Acetaminophen 325 mg 10/25/17 09:00 Tylenol Tab PO TID [facility] Acetaminophen 1,000 mg 10/25/17 03:53 Tylenol Tab PO Q6H PRN Pain Al Hydroxide/Mg Hydroxide 30 ml 10/25/17 09:00 Maalox PO BID [facility] Albuterol Sulfate 2.5 mg 10/25/17 08:00 Ventolin Nebulized INHALATION RT-TID [facility] Aspirin 325 mg 10/26/17 09:00 Aspirin PO DAILY [facility] Atorvastatin Calcium 20 mg 10/25/17 21:00 Lipitor PO HS [facility] Budesonide/Formoterol Fumarate 2 puff 10/25/17 08:00 Symbicort 80-4.5 Mcg Inhaler INHALATION RT-BID [facility] Dipyridamole/Aspirin 1 each 10/25/17 09:00 Aggrenox PO BID [facility] Ergocalciferol 50,000 unit 11/01/17 09:00 Vitamin D2 PO MO [facility] Fenofibrate 54 mg 10/25/17 09:00 Lofibra PO DAILY [facility] Gabapentin 800 mg 10/25/17 09:00 Neurontin PO TID [facility] Sodium Chloride 1,000 mls @ 100 mls/hr 10/25/17 01:48 10/25/17 01:57 Saline 0.9% IV 10/25/17 11:47 100 mls/hr .Q10H STA Administration Insulin Aspart 30 unit 10/25/17 18:00 Novolog Mix 70-30 Vial SQ DAILY@1800 [facility] Insulin Aspart 50 unit 10/25/17 07:00 Novolog Mix 70-30 Vial SQ DAILY@0700 [facility] Loratadine 10 mg 10/25/17 09:00 Claritin PO DAILY [facility] Meloxicam 15 mg 10/25/17 09:00 Mobic PO DAILY [facility] Metformin HCl 1,000 mg 10/25/17 07:30 Glucophage PO BID-W/MEALS [facility] Montelukast Sodium 10 mg 10/25/17 21:00 Singulair PO HS [facility] Morphine Sulfate 4 mg 10/25/17 03:49 Morphine Sulfate (Inj) IV Q5M PRN Chest Pain Nicotine 1 patch 10/25/17 09:00 Habitrol 21mg/24hr Patch TRANSDERM DAILY [facility] Nitroglycerin 0.4 mg 10/25/17 03:49 Nitrostat SUBLINGUAL Q5M PRN Chest Pain Oxcarbazepine 300 mg 10/25/17 09:00 Trileptal PO BID [facility] Pantoprazole Sodium 40 mg 10/25/17 09:00 Protonix PO DAILY [facility] Tamsulosin HCl 0.4 mg 10/25/17 09:00 Flomax PO DAILY [facility] Triamcinolone Acetonide 1 applic 10/25/17 09:00 Kenalog 0.5% Cream TOPICAL BID [facility] Venlafaxine HCl 150 mg 10/25/17 09:00 Effexor Xr PO DAILY [facility] Intake and Output 10/24/17 10/25/17 10/25/17 22:59 06:59 14:59 Other: Weight 83.461 kg 10/25/17 01:35 10/25/17 01:35 Assessment and Plan Assessment: Assessment #1 atypical and reproducible chest discomfort #2 right shoulder discomfort as well #3 multiple risk factors for coronary artery disease including diabetes and ongoing smoking Plan #1 we will rule out an acute coronary event. We have 1 more set of cardiac enzymes to come up. #2 I will obtain an echocardiogram with Doppler #3 the chest discomfort is likely noncardiac and likely to be musculoskeletal #4 I will also obtain the previous medical records from the office next #5 follow-up with the patient. Thank you for allowing us participate in his care and we will continue following up with the patient
[2017-10-25] MEDS: NICOTINE 21MG/24HR PATCH TRANSDERM SCH (09:12)
[2017-10-25] MEDS: VENLAFAXINE HCL ER 150 MG CAP PO SCH (09:12)
[2017-10-25] MEDS: MAG HYDROX/AL HYDROX/SIMETH 30 ML CUP PO SCH ×2 (09:12→20:08)
[2017-10-25] MEDS: ACETAMINOPHEN TAB 325 MG TAB PO SCH ×3 (09:12→20:07)
[2017-10-25] MEDS: DIPYRIDAMOLE-ASPIRIN 200-25 MG 1 EACH CPMP.12HR PO SCH ×2 (09:12→20:07)
[2017-10-25] MEDS: GABAPENTIN 400 MG CAP PO SCH ×3 (09:13→20:07)
[2017-10-25] MEDS: MELOXICAM 7.5 MG TAB PO SCH (09:13)
[2017-10-25] MEDS: FENOFIBRATE 54 MG TAB PO SCH (09:13)
[2017-10-25] MEDS: PANTOPRAZOLE 40 MG TABLET PO SCH (09:13)
[2017-10-25] MEDS: OXcarbazepine 300 MG TAB PO SCH ×2 (09:14→20:07)
[2017-10-25] MEDS: TAMSULOSIN 0.4 MG CAP.ER.24H PO SCH (09:14)
[2017-10-25] MEDS: metFORMIN 500 MG TAB PO SCH ×2 (09:14→16:34)
[2017-10-25] MEDS: LORATADINE 10 MG TAB PO SCH (09:14)
[2017-10-25] MEDS: INSULN ASP PRT/INSULIN ASPART 100 UNIT/ML 10 ML VIAL SQ SCH ×2 (09:20→20:06)
[2017-10-25] MEDS: ALBUTEROL NEBULIZED 2.5 MG/3 ML INHALATION SCH ×3 (09:38→19:09)
[2017-10-25] MEDS: SYMBICORT 80-4.5 MCG INHALER INHALATION SCH ×2 (09:45→19:11)
[2017-10-25] MEDS ORDERED: MORPHINE ORAL SOLN 10 MG/5 ML CUP PO PRN (14:53)
[2017-10-25] MEDS: TRIAMCINOLONE ACET 0.5% CREAM 15 GM TUBE TOPICAL SCH ×2 (15:50→20:07)
[2017-10-25 15:51] LABS: Creatine Kinase 114 U/L (55-170)
[2017-10-25 16:05] LABS: Creatine Kinase MB 1.1 ng/mL (0.0-2.4); Troponin I <0.012 ng/mL (0.000-0.034)
[2017-10-25 17:14] LABS: Glucose,Whole Blood 82 mg/dL (75-99)
[2017-10-25 20:06] LABS: Glucose,Whole Blood 116 mg/dL (75-99)
[2017-10-25] MEDS: MONTELUKAST 10 MG TAB PO SCH (20:07)
[2017-10-25] MEDS: ATORVASTATIN 20 MG TAB PO SCH (20:08)
--- NOTE | 2017-10-26 00:16 | P.HPIM ---
History of Present Illness H&P Date: 10/25/17 Chief Complaint: Chest pain Mr. Ramsay is a 47-year-old male with a past medical history of asthma, COPD, stroke, type 2 diabetes mellitus, GERD, hyperlipidemia, hypertension coming in with a chief complaint of chest discomfort. Patient was sitting at his home watching television when he started to have chest pains on the left side of the chest which radiating to the midsternal and so he came into the hospital for further evaluation. Patient denies having any difficulty in breathing, diaphoresis, nausea that is associated with the chest pain. He denies having any dizziness or lightheadedness. Patient states that when he tried to use his right arm his pain has been getting more worse. Patient has a history of stroke with some left-sided weakness and has diabetes. He is a current every day smoker. Patient denies having any cough, palpitations, fever with chills or rigors. He denies having any abdominal pain nausea vomiting or diarrhea. No hematuria or dysuria. No lower extremity swelling. Review of Systems REVIEW OF SYSTEMS: PSYCH: Normal psychiatric exam NEURO:No c/o weakness of the extremties, No facial droop, No speech abnormalities. VASCULAR: Peripheral nervous system within the normal limits no edema HEMATOLOGIC: No history of easy bleeding and bruising . No recent infections . RESPIRATORY: No cough, No SOB IMMUNE: No recent infections INTEGUMENT: no rashes OPHTHALMOLOGIC: No blurry vision and no eye discharge : No dysuria or hematuria CARDIAC: denies paroxysmal nocturnal dyspnea MUSCULOSKELETAL : No Aches or pains in the joints or muscles. GI: No abdominal pain, Nausea or vomiting. No constipation or diarrhea. Past Medical History Past Medical History: Asthma, Chest Pain / Angina, COPD, CVA/TIA, Diabetes Mellitus, GERD/Reflux, Hearing Disorder / Deafness, Hyperlipidemia, Hypertension , Liver Disease, Osteoarthritis (OA), Pneumonia, Seizure Disorder, Sleep Apnea/ CPAP/BIPAP Additional Past Medical History / Comment(s): Cyst on kidney, uses cpap (22) History of Any Multi-Drug Resistant Organisms: None Reported Past Surgical History: Heart Catheterization, Orthopedic Surgery Additional Past Surgical History / Comment(s): Cysts removed, left thumb surgery Past Anesthesia/Blood Transfusion Reactions: Motion Sickness, Postoperative Nausea & Vomiting (PONV) Smoking Status: Current every day smoker - Past Family History Brother(s) Family Medical History: Diabetes Mellitus Additional Family Medical History / Comment(s): Patient has 2 brothers. One from complications from diabetes. The second is alive with diabetes. Sister(s) Family Medical History: Cancer Additional Family Medical History / Comment(s): Patient has one sister with breast cancer. Patient does not have any children. Father Family Medical History: Cancer Additional Family Medical History / Comment(s): Father in his 40s or 50s from colon cancer. Mother Family Medical History: Cancer Additional Family Medical History / Comment(s): Mother at age 68 from lung cancer. Medications and Allergies Home Medications Medication Instructions Recorded Confirmed Type Loratadine [Claritin] 10 mg PO DAILY 08/15/14 10/25/17 History metFORMIN HCL [metFORMIN HCL ER] 1,000 mg PO AC-SUPPER 08/15/14 10/25/17 History Albuterol Nebulized [Ventolin 2.5 mg INHALATION RT-Q4H PRN 07/03/15 10/25/17 History Nebulized] Gabapentin [Neurontin] 800 mg PO TID 07/03/15 10/25/17 History Tamsulosin HCl [Flomax] 0.4 mg PO DAILY 07/03/15 10/25/17 History Dipyridamole-Aspirin 200-25 mg 1 tab PO BID 01/13/16 10/25/17 History [Aggrenox 25MG -200MG] Ergocalciferol [Vitamin D2] 50,000 unit PO MO 01/13/16 10/25/17 History Meloxicam [Mobic] 15 mg PO DAILY 01/13/16 10/25/17 History Fenofibrate Nanocrystallized 48 mg PO DAILY 02/19/17 10/25/17 History [Fenofibrate] Fluticasone/Salmeterol [Advair 1 puff INHALATION RT-BID 02/19/17 10/25/17 History 250-50 Diskus] Maalox 600mg Tab 600 mg PO BID 02/19/17 10/25/17 History Montelukast [Singulair] 10 mg PO HS 02/19/17 10/25/17 History OXcarbazepine [Trileptal] 300 mg PO BID 02/19/17 10/25/17 History Omeprazole [PriLOSEC] 40 mg PO DAILY 02/19/17 10/25/17 History Venlafaxine HCl ER [Effexor XR] 150 mg PO DAILY 02/19/17 10/25/17 History Acetaminophen Tab [Tylenol Tab] 1,000 mg PO Q6H PRN 05/04/17 10/25/17 History Triamcinolone 0.025% Cream 1 applic TOPICAL BID 05/04/17 10/25/17 History [Kenalog 0.025% Cream] Simvastatin 80 mg PO HS 10/25/17 10/25/17 History Allergies Allergy/AdvReac Type Severity Reaction Status Date / Time ciprofloxacin Allergy Unknown Nausea Verified 10/25/17 10:04 dicyclomine HCl [From Bentyl] Allergy Unknown Dyspnea Verified 10/25/17 10:04 latex Allergy Unknown Rash/Hives Verified 10/25/17 10:04 Macrolide Antibiotics Allergy Unknown Nausea Verified 10/25/17 10:04 diphenhydramine HCl Allergy Anaphylaxis Verified 10/25/17 10:04 [From Benadryl] adhesive AdvReac Unknown Itching Verified 10/25/17 10:04 sulfamethoxazole AdvReac Unknown Unknown Verified 10/25/17 10:04 [From Bactrim] trimethoprim [From Bactrim] AdvReac Unknown Unknown Verified 10/25/17 10:04 Physical Exam Vitals: Vital Signs Temp Pulse Pulse Resp BP BP Pulse Ox 10/25/17 15:12 18 10/25/17 15:01 97.8 F 65 18 118/64 96 10/25/17 14:37 98.9 F 78 18 123/63 98 10/25/17 14:10 78 10/25/17 14:05 73 18 121/69 99 10/25/17 14:00 74 10/25/17 12:30 98.6 F 86 18 135/80 98 10/25/17 09:49 72 10/25/17 09:39 80 10/25/17 07:00 64 20 114/78 98 10/25/17 05:00 64 20 116/73 97 10/25/17 04:00 98 18 122/84 100 10/25/17 03:00 86 20 172/83 97 10/25/17 02:26 68 20 108/75 98 10/25/17 01:21 97.2 F L 88 18 128/85 98 Intake and Output 0410/25/17 10/25/17 06:59 14:59 22:59 Intake Total 200 Balance 200 Intake: Oral 200 Other: Weight 83.461 kg 81.6 kg GENERAL EXAM GEN. APPEARANCE: alert, in no apparent distress HEAD EXAM: atraumatic, normocephalic, normal inspection EYE EXAM: normal appearance, PERRL, EOMI. Absent: scleral icterus, conjunctival injection, periorbital swelling ENT EXAM: normal exam, mucous membranes moist NECK EXAM: normal inspection. Absent: tenderness, meningismus, full ROM, lymphadenopathy RESPIRATORY EXAM: normal lung sounds bilaterally. Absent: respiratory distress , wheezes, rales, rhonchi, stridor CARDIOVASCULAR EXAM: regular rate, normal rhythm, normal heart sounds. Absent : systolic murmur, diastolic murmur, rubs, gallop, clicks GI/ABDOMINAL EXAM: soft, normal bowel sounds. Absent: distended, tenderness, guarding, rebound, rigid EXTREMITIES EXAM: normal inspection, full ROM, normal capillary refill. Absent : tenderness, pedal edema, joint swelling, calf tenderness BACK EXAM: normal inspection NEUROLOGICAL EXAM: alert, oriented X3, no motor or sensory deficit PSYCHIATRIC EXAM: normal affect, normal mood SKIN EXAM: warm, dry, intact, normal color. Absent: rash Results CBC & Chem 7: 10/25/17 01:35 10/25/17 01:35 Labs: Abnormal Lab Results - Last 24 Hours (Table) 10/25/17 10/25/17 10/25/17 Range/Units 01:35 01:35 07:40 Sodium 146 H (137-145) mmol/L Chloride 110 H (98-107) mmol/L Carbon Dioxide 21 L (22-30) mmol/L POC Glucose (mg/dL) 134 H (75-99) mg/dL Calcium 10.3 H (8.4-10.2) mg/dL Total Creatine Kinase 181 H (55-170) U/L Thrombosis Risk Factor Assmnt - Choose All That Apply Any of the Below Risk Factors Present?: Yes Each Factor Represents 1 point: Abnormal pulmonary function (COPD), Age 41-60 years, Obesity (BMI >25) Other Risk Factors: No Other congenital or acquired thrombophilia - If yes, enter type in comment: No Thrombosis Risk Factor Assessment Total Risk Factor Score: 3 Thrombosis Risk Factor Assessment Level: Moderate Risk Assessment and Plan Assessment: ASSESSMENT Unstable angina History of stroke Type 2 diabetes mellitus Chronic nicotine dependence Essential hypertension COPD Seizure disorder Obstructive sleep apnea Hyperlipidemia GERD PLAN: Patient is being monitored for acute coronary syndrome with serial troponins and EKGs. Cardiology services have been consulted and recommended he continue to echo with Doppler which is scheduled for tomorrow morning. Resume his home medications and further recommendations to follow depending on the progress of the patient.
[2017-10-26 06:52] LABS: Glucose,Whole Blood 119 mg/dL (75-99)
[2017-10-26 06:56] LABS: Basophils % (A) 0 %; Eosinophils # (A) 0.4 k/uL (0-0.7); Eosinophils % (A) 5 %; HCT 45.6 % (39.0-53.0); HGB 16.1 gm/dL (13.0-17.5); Lymphocytes # (A) 1.6 k/uL (1.0-4.8); Lymphocytes % (A) 23 %; MCH 31.7 pg (25.0-35.0); MCHC 35.2 g/dL (31.0-37.0); Monocytes # (A) 0.3 k/uL (0-1.0); Monocytes % (A) 5 %; Neutrophils # (A) 4.6 k/uL (1.3-7.7); Neutrophils % (A) 64 %; Platelet Count 194 k/uL (150-450); RBC 5.07 m/uL (4.30-5.90); RDW 13.1 % (11.5-15.5); WBC 7.1 k/uL (3.8-10.6)
[2017-10-26] MEDS: ALBUTEROL NEBULIZED 2.5 MG/3 ML INHALATION SCH ×3 (07:09→19:32)
[2017-10-26] MEDS: SYMBICORT 80-4.5 MCG INHALER INHALATION SCH ×2 (07:09→19:32)
[2017-10-26 07:14] LABS: Anion Gap 8 mmol/L; Blood Urea Nitrogen 13 mg/dL (9-20); Calcium 9.8 mg/dL (8.4-10.2); Carbon Dioxide 27 mmol/L (22-30); Chloride 110 mmol/L (98-107); Cholesterol 137 mg/dL (<200); Glucose 114 mg/dL (74-99); HDL Cholesterol 52 mg/dL (40-60); LDL Cholesterol,Calculated 51 mg/dL (0-99); Potassium 4.3 mmol/L (3.5-5.1); Sodium 145 mmol/L (137-145); Triglycerides 169 mg/dL (<150)
[2017-10-26] MEDS: INSULN ASP PRT/INSULIN ASPART 100 UNIT/ML 10 ML VIAL SQ SCH ×2 (07:57→17:32)
[2017-10-26] MEDS ORDERED: AMINOPHYLLINE 500 MG/20 ML VIAL IV PRN (08:32)
[2017-10-26] MEDS ORDERED: REGADENOSON 0.4 MG/5 ML SYRINGE IV ONE (08:32)
[2017-10-26] MEDS ORDERED: ASPIRIN 325 MG TAB PO SCH (09:00)
[2017-10-26] MEDS: NICOTINE 21MG/24HR PATCH TRANSDERM SCH (09:37)
[2017-10-26] MEDS: MELOXICAM 7.5 MG TAB PO SCH (09:38)
[2017-10-26] MEDS: DIPYRIDAMOLE-ASPIRIN 200-25 MG 1 EACH CPMP.12HR PO SCH ×2 (09:38→20:01)
[2017-10-26] MEDS: VENLAFAXINE HCL ER 150 MG CAP PO SCH (09:38)
[2017-10-26] MEDS: LORATADINE 10 MG TAB PO SCH (09:39)
[2017-10-26] MEDS: FENOFIBRATE 54 MG TAB PO SCH (09:39)
[2017-10-26] MEDS: ACETAMINOPHEN TAB 500 MG TAB PO PRN ×2 (09:39→17:34)
[2017-10-26] MEDS: TAMSULOSIN 0.4 MG CAP.ER.24H PO SCH (09:39)
[2017-10-26] MEDS: ACETAMINOPHEN TAB 325 MG TAB PO SCH ×3 (09:40→20:01)
[2017-10-26] MEDS: MAG HYDROX/AL HYDROX/SIMETH 30 ML CUP PO SCH ×2 (09:40→20:01)
[2017-10-26] MEDS: metFORMIN 500 MG TAB PO SCH ×2 (09:40→17:36)
[2017-10-26] MEDS: OXcarbazepine 300 MG TAB PO SCH ×2 (09:40→20:01)
[2017-10-26] MEDS: GABAPENTIN 400 MG CAP PO SCH ×3 (09:40→20:02)
[2017-10-26] MEDS: PANTOPRAZOLE 40 MG TABLET PO SCH (09:40)
[2017-10-26] MEDS: TRIAMCINOLONE ACET 0.5% CREAM 15 GM TUBE TOPICAL SCH ×2 (09:41→20:01)
--- NOTE | 2017-10-26 10:42 | P.PN ---
Subjective Progress Note Date: 10/26/17 Mr. Ramsay is a pleasant 47-year-old male past medical history significant for diabetes mellitus, GERD, dyslipidemia, hypertension, seizures and nicotine dependence. He follows with Dr. Gonzalez in the office. We are following him on this admission for chest pain. Cardiac enzymes have come in unremarkable with 3 sets being negative. He continues to complain of pain in the chest in the mid-sternal region. The pain has been constant since admission and is reproducible on palpation. Hemoglobin 16.1, platelets 194, potassium 4.3 , creatinine 0.85, sodium 145, LDL 51. Blood pressure 116/71 heart rate 56 afebrile maintaining oxygen saturation on room air. Objective - Vital Signs Vital signs: Vital Signs Temp 98.0 F 10/26/17 08:00 Pulse 56 L 10/26/17 08:00 Resp 18 10/26/17 08:00 BP 116/71 10/26/17 08:00 Pulse Ox 96 10/26/17 08:00 Intake & Output 10/25/17 10/26/17 10/26/17 18:59 06:59 18:59 Intake Total 200 520 Balance 200 520 Weight 81.6 kg Intake: Oral 200 520 Other: # Voids 1 - Exam GENERAL: Well-appearing, well-nourished and in no acute distress. NECK: Supple without JVD or thyromegaly. LUNGS: Breath sounds clear to auscultation bilaterally. Respiration equal and unlabored. No wheezes, rales or rhonchi. HEART: Regular rate and rhythm without murmurs, rubs or gallops. S1 and S2 heard. EXTREMITIES: Normal range of motion, no edema. No clubbing or cyanosis. Peripheral pulses intact and strong. - Labs CBC & Chem 7: 10/26/17 06:29 10/26/17 06:29 Labs: Abnormal Lab Results - Last 24 Hours (Table) 10/25/17 10/26/17 10/26/17 Range/Units 20:04 06:29 06:48 Chloride 110 H (98-107) mmol/L Glucose 114 H (74-99) mg/dL POC Glucose (mg/dL) 116 H 119 H (75-99) mg/dL Triglycerides 169 H (<150) mg/dL Assessment and Plan Assessment: ASSESSMENT 1. Chest pain, atypical. An acute coronary event has been ruled out. 2. Diabetes mellitus 3. Hypertension 4. Dyslipidemia 5. Multiple comorbid conditions. PLAN Lexiscan stress test was ordered, however he ate breakfast and had coffee. He will be NPO after midnight tonight for Lexiscan stress test tomorrow morning. NPO after midnight. Continue with simvastatin and change aspirin to 81 mg daily. Nurse Practitioner note has been reviewed, I agree with a documented findings and plan of care. Patient was seen and examined.
--- NOTE | 2017-10-26 12:06 | ECHOF ---
Referral Reason: MEASUREMENTS -------- HEIGHT: 152.4 cm WEIGHT: 83.9 kg BP: RVIDd: 2.7 cm (< 3.3) IVSd: 1.2 cm (0.6 - 1.1) LVIDd: 4.3 cm (3.9 - 5.3) LVPWd: 0.9 cm (0.6 - 1.1) IVSs: 1.1 cm LVIDs: 3.7 cm LVPWs: 1.3 cm Ao Diam: 3.4 cm (2.0 - 3.7) AV Cusp: 1.6 cm (1.5 - 2.6) LA Diam: 3.4 cm (2.7 - 3.8) MV EXCURSION: 19.436 mm (> 18.000) MV EF SLOPE: 111 mm/s (70 - 150) EPSS: 0.9 cm MV E Elias: 0.77 m/s MV DecT: 159 ms MV A Elias: 0.76 m/s MV E/A Ratio: 1.01 RAP: 5.00 mmHg RVSP: 24.39 mmHg FINDINGS -------- Sinus rhythm. This was a technically adequate study. The left ventricular size is normal. There is mild concentric left ventricular hypertrophy. Overa ll left ventricular systolic function is low-normal with, an EF between 50 - 55 %. The right ventricle is normal in size. The left atrial size is normal. The right atrial size is normal. The aortic valve is trileaflet, and appears structurally normal. No aortic stenosis or regurgitation. Mild mitral annular calcification present. Mild mitral regurgitation is present. Mild tricuspid regurgitation present. There is no evidence of pulmonary hypertension. The right v entricular systolic pressure, as measured by Doppler, is 24.39mmHg. There is no pulmonic regurgitation present. The aortic root size is normal. There is no pericardial effusion. CONCLUSIONS -------- 1. The left ventricular size is normal. 2. There is mild concentric left ventricular hypertrophy. 3. Overall left ventricular systolic function is low-normal with, an EF between 50 - 55 %. 4. The aortic valve is trileaflet, and appears structurally normal. No aortic stenosis or regurgitati on. 5. Mild mitral annular calcification present. 6. Mild mitral regurgitation is present. 7. Mild tricuspid regurgitation present. 8. There is no evidence of pulmonary hypertension. 9. The right ventricular systolic pressure, as measured by Doppler, is 24.39mmHg. 10. There is no pulmonic regurgitation present. 11. The aortic root size is normal. 12. There is no pericardial effusion. MANAGER CALL: Loida Becker RDCS
[2017-10-26 12:11] LABS: Glucose,Whole Blood 113 mg/dL (75-99)
[2017-10-26 17:15] LABS: Glucose,Whole Blood 132 mg/dL (75-99)
[2017-10-26] MEDS: MONTELUKAST 10 MG TAB PO SCH (20:01)
[2017-10-26] MEDS: ATORVASTATIN 20 MG TAB PO SCH (20:01)
[2017-10-26 20:39] LABS: Glucose,Whole Blood 106 mg/dL (75-99)
[2017-10-27] MEDS: ALBUTEROL NEBULIZED 2.5 MG/3 ML INHALATION SCH ×3 (07:07→20:35)
[2017-10-27] MEDS: SYMBICORT 80-4.5 MCG INHALER INHALATION SCH ×2 (07:07→20:35)
[2017-10-27 07:16] LABS: Glucose,Whole Blood 128 mg/dL (75-99)
[2017-10-27] MEDS ORDERED: ASPIRIN 81 MG PO SCH ×2 (09:00→15:18)
--- NOTE | 2017-10-27 09:52 | P.PN ---
Subjective Progress Note Date: 10/27/17 Mr. Ramsay is a pleasant 47-year-old male past medical history significant for diabetes mellitus, GERD, dyslipidemia, hypertension, seizures and nicotine dependence. He follows with Dr. Gonzalez in the office. We are following him on this admission for chest pain. Cardiac enzymes have come in unremarkable with 3 sets being negative. He continues to complain of pain in the chest in the mid-sternal region. The pain has been constant since admission and is reproducible on palpation. Hemoglobin 16.1, platelets 194, potassium 4.3 , creatinine 0.85, sodium 145, LDL 51. Blood pressure 116/71 heart rate 56 afebrile maintaining oxygen saturation on room air. 10/27/2017 Mr. Ramsay is seen and examined. He is in no acute distress. Telemetry tracings have been unremarkable. Blood pressure 111/76, heart rate 60 afebrile. Chest pains have subsided. Objective - Vital Signs Vital signs: Vital Signs Temp 98.5 F 10/27/17 04:00 Pulse 60 10/27/17 08:00 Resp 16 10/27/17 08:00 BP 111/76 10/27/17 07:44 Pulse Ox 98 10/27/17 07:44 Intake & Output 10/26/17 10/27/17 10/27/17 18:59 06:59 18:59 Intake Total 1939 Balance 1939 Intake: Oral 1340 Other 600 Other: Voiding Method Toilet # Voids 1 1 - Exam GENERAL: Well-appearing, well-nourished and in no acute distress. NECK: Supple without JVD or thyromegaly. LUNGS: Breath sounds clear to auscultation bilaterally. Respiration equal and unlabored. No wheezes, rales or rhonchi. HEART: Regular rate and rhythm without murmurs, rubs or gallops. S1 and S2 heard. EXTREMITIES: Normal range of motion, no edema. No clubbing or cyanosis. Peripheral pulses intact and strong. - Labs CBC & Chem 7: 10/26/17 06:29 10/26/17 06:29 Labs: Abnormal Lab Results - Last 24 Hours (Table) 10/26/17 10/26/17 10/26/17 Range/Units 12:05 17:14 20:29 POC Glucose (mg/dL) 113 H 132 H 106 H (75-99) mg/dL 10/27/17 Range/Units 06:34 POC Glucose (mg/dL) 128 H (75-99) mg/dL Assessment and Plan Assessment: ASSESSMENT 1. Chest pain, atypical. An acute coronary event has been ruled out. 2. Diabetes mellitus 3. Hypertension 4. Dyslipidemia 5. Multiple comorbid conditions. PLAN Proceed with Lexiscan stress test as was previously ordered. If negative he is stable from a cardiac perspective. If positive will pursue coronary angiography. Nurse Practitioner note has been reviewed, I agree with a documented findings and plan of care. Patient was seen and examined.
[2017-10-27] MEDS: INSULN ASP PRT/INSULIN ASPART 100 UNIT/ML 10 ML VIAL SQ SCH ×2 (10:37→18:41)
[2017-10-27] MEDS: OXcarbazepine 300 MG TAB PO SCH ×2 (10:38→21:20)
[2017-10-27] MEDS: PANTOPRAZOLE 40 MG TABLET PO SCH (10:38)
[2017-10-27] MEDS: GABAPENTIN 400 MG CAP PO SCH ×3 (10:38→21:19)
[2017-10-27] MEDS: ACETAMINOPHEN TAB 325 MG TAB PO SCH ×3 (10:38→21:19)
[2017-10-27] MEDS: MELOXICAM 7.5 MG TAB PO SCH (10:38)
[2017-10-27] MEDS: TAMSULOSIN 0.4 MG CAP.ER.24H PO SCH (10:38)
[2017-10-27] MEDS: FENOFIBRATE 54 MG TAB PO SCH (10:38)
[2017-10-27] MEDS: NICOTINE 21MG/24HR PATCH TRANSDERM SCH (10:39)
[2017-10-27] MEDS: DIPYRIDAMOLE-ASPIRIN 200-25 MG 1 EACH CPMP.12HR PO SCH ×2 (10:39→21:19)
[2017-10-27] MEDS: LORATADINE 10 MG TAB PO SCH (10:39)
[2017-10-27] MEDS: metFORMIN 500 MG TAB PO SCH ×2 (10:39→18:45)
--- NOTE | 2017-10-27 10:40 | NM ---
EXAMINATION TYPE: NM stress lexiscan cardiolite DATE OF EXAM: 10/27/2017 COMPARISON: 04/17/2010 HISTORY: 47-year-old male with chest pain TECHNIQUE: After the intravenous administration of 10.8 mCi Tc 99m Sestamibi - Cardiolite resting SP ECT images were acquired. The patient received 0.4mg Lexiscan, 26.7 mCi Tc 99m Sestamibi - Stress images were obtained. FINDINGS: Review of stress and rest SPECT images show thinning of activity at the cardiac apex and also decreas ed activity along the mid to apical inferior wall on stress images. However, polar maps to don confir m this and gated analysis shows no focal wall motion abnormality. Estimated left ventricular ejection fraction of 57 %. However, TID is elevated at 1.30. IMPRESSION: Questionable areas of reversibility at the cardiac apex and inferior wall not confirmed on polar maps or by any focal wall motion abnormality. However, TID is abnormally elevated. This can be seen in t he setting of multivessel balanced ischemia. Further clinical workup and EKG correlation as indicated .
[2017-10-27] MEDS: MAG HYDROX/AL HYDROX/SIMETH 30 ML CUP PO SCH ×2 (10:41→21:20)
[2017-10-27] MEDS: TRIAMCINOLONE ACET 0.5% CREAM 15 GM TUBE TOPICAL SCH ×2 (10:42→21:19)
[2017-10-27] MEDS: VENLAFAXINE HCL ER 150 MG CAP PO SCH (11:45)
[2017-10-27 12:30] LABS: Glucose,Whole Blood 169 mg/dL (75-99)
[2017-10-27] MEDS ORDERED: ALPRAZolam 0.25 MG TAB PO PRN (15:16)
[2017-10-27] MEDS ORDERED: ALPRAZolam 0.5 MG TAB PO PRN (15:16)
[2017-10-27] MEDS ORDERED: SODIUM CHLORIDE 0.9% 1,000 ML in EMPTY BAG 1 BAG IV ONE (15:16)
[2017-10-27 18:01] LABS: Glucose,Whole Blood 87 mg/dL (75-99)
--- NOTE | 2017-10-27 18:21 | EST ---
EXERCISE STRESS DATE OF STUDY: 10/27/2017. INDICATION FOR STUDY: Chest pain. AGE: 47 SEX: Male. HT: 64" WT: 179 pounds. PROTOCOL: Lexiscan Cardiolite. STAGE: DURATION OF EXERCISE: HEART RATE REST: 62 BLOOD PRESSURE REST: 105/67 MAXIMUM HEART RATE ACHIEVED: 96 MAXIMUM BLOOD PRESSURE: 106/65 85% MPHR: 146 100% MPHR: 172 METS: CLINICAL INFORMATION: STRESS DATA: Pre-testing physical examination showed a heart rate of 62, pressure of 105/67 mmHg. Baseline EKG showed sinus mechanism. Lexiscan 0.4 mg was given to the patient over 15 seconds per protocol. Maximum heart rate was 96 beats per minute and maximum pressure was 106/67 mmHg. Clinically the patient did not have any symptoms of chest pain or discomfort and the EKG did not show any significant ST or T-wave abnormalities consistent with ischemia. CONCLUSION: 1. Non-diagnostic electrocardiogram stress testing in response to Lexiscan. 2. Please follow up on the Cardiolite portion on separate report from the radiology department. 3. MMODL / IJN: [id number] /
[2017-10-27 21:02] LABS: Glucose,Whole Blood 154 mg/dL (75-99)
[2017-10-27] MEDS: ATORVASTATIN 80 MG TAB PO SCH (21:19)
[2017-10-27] MEDS: MONTELUKAST 10 MG TAB PO SCH (21:20)
[2017-10-27] MEDS: INSULIN ASPART 100 UNIT/ML 1 ML 10 ML VIAL SQ SCH (21:34)
[2017-10-28] MEDS ORDERED: ASPIRIN 81 MG PO SCH (00:42)
[2017-10-28] MEDS: MELOXICAM 7.5 MG TAB PO SCH (06:03)
[2017-10-28] MEDS: VENLAFAXINE HCL ER 150 MG CAP PO SCH (06:03)
[2017-10-28] MEDS: MAG HYDROX/AL HYDROX/SIMETH 30 ML CUP PO SCH (06:03)
[2017-10-28] MEDS: PANTOPRAZOLE 40 MG TABLET PO SCH (06:03)
[2017-10-28] MEDS: GABAPENTIN 400 MG CAP PO SCH (06:03)
[2017-10-28] MEDS: TAMSULOSIN 0.4 MG CAP.ER.24H PO SCH (06:04)
[2017-10-28] MEDS: ATORVASTATIN 80 MG TAB PO SCH (06:04)
[2017-10-28] MEDS: FENOFIBRATE 54 MG TAB PO SCH (06:04)
[2017-10-28] MEDS: LORATADINE 10 MG TAB PO SCH (06:04)
[2017-10-28] MEDS: OXcarbazepine 300 MG TAB PO SCH (06:04)
[2017-10-28] MEDS: TRIAMCINOLONE ACET 0.5% CREAM 15 GM TUBE TOPICAL SCH (06:10)
[2017-10-28] MEDS: INSULN ASP PRT/INSULIN ASPART 100 UNIT/ML 10 ML VIAL SQ SCH (06:12)
[2017-10-28] MEDS: INSULIN ASPART 100 UNIT/ML 1 ML 10 ML VIAL SQ SCH ×2 (06:52→14:18)
[2017-10-28 06:56] LABS: Glucose,Whole Blood 106 mg/dL (75-99)
[2017-10-28 08:03] VITALS: RESP 18
[2017-10-28] MEDS ORDERED: IV FLUID CONTINUATION 300 ML IV ONE (08:08)
[2017-10-28] MEDS ORDERED: fentaNYL (PF) 50 MCG/ML 2 ML AMP ONE (08:13)
[2017-10-28] MEDS ORDERED: MIDAZOLAM 2 MG/2 ML VIAL ONE (08:13)
[2017-10-28] MEDS ORDERED: MIDAZOLAM 2 MG/2 ML VIAL IVP ONE (08:20)
[2017-10-28] MEDS ORDERED: LIDOCAINE 2% INJ 20 MG/ML SQ ONE (08:23)
[2017-10-28] MEDS ORDERED: fentaNYL (PF) 50 MCG/ML 2 ML AMP IV ONE (08:26)
[2017-10-28] MEDS: SYMBICORT 80-4.5 MCG INHALER INHALATION SCH (08:30)
[2017-10-28] MEDS ORDERED: IOPAMIDOL-370 125ML BTL INJ ONE (08:38)
[2017-10-28] MEDS ORDERED: RX INFO: IV CONTRAST WAS GIVEN 1 EACH MISC MISCELLANE PRN (08:39)
[2017-10-28] MEDS ORDERED: SODIUM CHLORIDE 0.9% 1,000 ML IV SCH (08:45)
[2017-10-28 09:01] VITALS: TEMP 97.5
[2017-10-28] MEDS: ACETAMINOPHEN TAB 325 MG TAB PO SCH (09:03)
[2017-10-28] MEDS: NICOTINE 21MG/24HR PATCH TRANSDERM SCH (09:04)
--- NOTE | 2017-10-28 09:07 | CC ---
CARDIAC CATHETERIZATION REPORT INDICATION: Chest pain with abnormal stress test. PROCEDURE NOTE: After obtaining informed consent, left heart catheterization and coronary angiogram were performed via the right femoral artery using standard Kandi catheters. Patient tolerated the procedure well without any obvious immediate complications. A femoral angiogram was performed and Angio-Seal was deployed for hemostasis. Patient received moderate conscious sedation and total sedation time was 13 minutes. FINDINGS: 1. HEMODYNAMICS: Left ventricular end-diastolic pressure is 6-8 mm. There is no significant gradient across the aortic valve. 2. LEFT VENTRICULOGRAM: Left ventriculogram is not performed. 3. ANGIOGRAPHIC DATA: 4. LEFT MAIN CORONARY ARTERY: Left main coronary artery is a normal-size vessel and is free of stenosis. Divides into left anterior descending coronary artery and circumflex coronary artery. LAD and its branches, circumflex coronary artery and its branches are free of significant stenosis. Right coronary artery is a large dominant vessel and is free of stenosis. CONCLUSION: 1. Normal coronary arteries. 2. Normal left ventricular end-diastolic pressure. PLAN: I reviewed angiographic data with the patient and told him that his chest discomfort is noncardiac in origin and the stress test is a false positive stress test. MMODL / IJN: [id number] /
[2017-10-28] MEDS: ALBUTEROL NEBULIZED 2.5 MG/3 ML INHALATION SCH ×2 (11:23→16:34)
[2017-10-28 12:02] VITALS: BP 108/77; PULSE 69
[2017-10-28 12:19] LABS: Glucose,Whole Blood 174 mg/dL (75-99)
[2017-10-28] MEDS: DIPYRIDAMOLE-ASPIRIN 200-25 MG 1 EACH CPMP.12HR PO SCH (14:17)
--- NOTE | 2017-10-28 15:15 | P.PN ---
Subjective Progress Note Date: 10/26/17 Principal diagnosis: Chest discomfort Mr. Ramsay is a 47-year-old male with a past medical history of asthma, COPD, stroke, type 2 diabetes mellitus, GERD, hyperlipidemia, hypertension coming in with a chief complaint of chest discomfort. Patient was sitting at his home watching television when he started to have chest pains on the left side of the chest which radiating to the midsternal and so he came into the hospital for further evaluation. Patient denies having any difficulty in breathing, diaphoresis, nausea that is associated with the chest pain. He denies having any dizziness or lightheadedness. Patient states that when he tried to use his right arm his pain has been getting more worse. Patient has a history of stroke with some left-sided weakness and has diabetes. He is a current every day smoker. On 10/26/17 - Patient is comfortable in the bed this morning. He denies having any chest pain. As per nursing staff report no active overnight issues. Patient is scheduled for stress test tomorrow morning Review of Systems NEURO:No c/o weakness of the extremties, No facial droop, No speech abnormalities. VASCULAR: no edema HEMATOLOGIC: No history of easy bleeding and bruising . No recent infections . RESPIRATORY: No cough, No SOB : No dysuria or hematuria CARDIAC: denies any worsening of chest pain GI: No abdominal pain, Nausea or vomiting. No constipation or diarrhea. Objective - Vital Signs Vital signs: Vital Signs Temp 97.7 F 10/26/17 19:33 Pulse 68 10/26/17 19:42 Resp 16 10/26/17 20:00 BP 106/60 10/26/17 19:33 Pulse Ox 96 10/26/17 19:33 Intake & Output 10/26/17 10/26/17 10/27/17 06:59 18:59 06:59 Intake Total 1939 Balance 1939 Intake: Oral 1340 Other 600 Other: # Voids 1 1 1 - Exam GEN. APPEARANCE: alert, in no apparent distress HEAD EXAM: atraumatic, normocephalic, normal inspection EYE EXAM: normal appearance, PERRL, EOMI. Absent: scleral icterus, conjunctival injection, periorbital swelling ENT EXAM: normal exam, mucous membranes moist NECK EXAM: normal inspection. Absent: tenderness, meningismus, full ROM, lymphadenopathy RESPIRATORY EXAM: normal lung sounds bilaterally. Absent: respiratory distress , wheezes, rales, rhonchi, stridor CARDIOVASCULAR EXAM: regular rate, normal rhythm, normal heart sounds. Absent : systolic murmur, diastolic murmur, rubs, gallop, clicks GI/ABDOMINAL EXAM: soft, normal bowel sounds. Absent: distended, tenderness, guarding, rebound, rigid EXTREMITIES EXAM: normal inspection, full ROM, normal capillary refill. Absent : tenderness, pedal edema, joint swelling, calf tenderness BACK EXAM: normal inspection NEUROLOGICAL EXAM: alert, oriented X3, no motor or sensory deficit PSYCHIATRIC EXAM: normal affect, normal mood SKIN EXAM: warm, dry, intact, normal color. Absent: rash - Labs CBC & Chem 7: 10/26/17 06:29 10/26/17 06:29 Labs: Abnormal Lab Results - Last 24 Hours (Table) 10/26/17 10/26/17 10/26/17 Range/Units 06:29 06:48 12:05 Chloride 110 H (98-107) mmol/L Glucose 114 H (74-99) mg/dL POC Glucose (mg/dL) 119 H 113 H (75-99) mg/dL Triglycerides 169 H (<150) mg/dL 10/26/17 10/26/17 Range/Units 17:14 20:29 Chloride (98-107) mmol/L Glucose (74-99) mg/dL POC Glucose (mg/dL) 132 H 106 H (75-99) mg/dL Triglycerides (<150) mg/dL Assessment and Plan Assessment: ASSESSMENT Atypical chest pain. Possible Unstable angina History of stroke Type 2 diabetes mellitus Chronic nicotine dependence Essential hypertension COPD Seizure disorder Obstructive sleep apnea Hyperlipidemia GERD PLAN: Patient is being monitored for acute coronary syndrome with serial troponins and EKGs. The patient was supposed to get a Sammie scan stress test done today but he had breakfast and coffee this morning. The procedure has been postponed for tomorrow morning. Patient will be kept n.p.o. tonight. C/w home medications and further recommendations to follow depending on the progress of the patient. Time with Patient: Greater than 30
--- NOTE | 2017-10-28 15:16 | P.PN ---
Subjective Progress Note Date: 10/27/17 Principal diagnosis: Chest discomfort Mr. Ramsay is a 47-year-old male with a past medical history of asthma, COPD, stroke, type 2 diabetes mellitus, GERD, hyperlipidemia, hypertension coming in with a chief complaint of chest discomfort. Patient was sitting at his home watching television when he started to have chest pains on the left side of the chest which radiating to the midsternal and so he came into the hospital for further evaluation. Patient denies having any difficulty in breathing, diaphoresis, nausea that is associated with the chest pain. He denies having any dizziness or lightheadedness. Patient states that when he tried to use his right arm his pain has been getting more worse. Patient has a history of stroke with some left-sided weakness and has diabetes. He is a current every day smoker. On 10/26/17 - Patient is comfortable in the bed this morning. He denies having any chest pain. As per nursing staff report no active overnight issues. On 10/27/17 - Patient is lying in the bed appears to be in no acute distress. He does not have any active complaints. He still complains of some chest discomfort on the left side of the chest. But denies having any difficulty in breathing or palpitations. Patient had a stress test done this morning which was questionable for areas of reversible ischemia on the anterolateral wall. Review of Systems NEURO:No c/o weakness of the extremties, No facial droop, No speech abnormalities. VASCULAR: no edema HEMATOLOGIC: No history of easy bleeding and bruising . No recent infections . RESPIRATORY: No cough, No SOB : No dysuria or hematuria CARDIAC: denies any worsening of chest pain GI: No abdominal pain, Nausea or vomiting. No constipation or diarrhea. Objective - Vital Signs Vital signs: Vital Signs Temp 97.6 F 10/27/17 20:00 Pulse 72 10/27/17 20:46 Resp 16 10/27/17 20:46 BP 123/65 10/27/17 20:00 Pulse Ox 96 10/27/17 20:00 Intake & Output 10/27/17 10/27/17 10/28/17 06:59 18:59 06:59 Intake Total 650 525 Balance 650 525 Weight 81.193 kg Intake: Oral 650 525 Other: Voiding Method Toilet Toilet # Voids 1 3 - Exam GEN. APPEARANCE: alert, in no apparent distress HEAD EXAM: atraumatic, normocephalic, normal inspection EYE EXAM: normal appearance, PERRL, EOMI. Absent: scleral icterus, conjunctival injection, periorbital swelling ENT EXAM: normal exam, mucous membranes moist NECK EXAM: normal inspection. Absent: tenderness, meningismus, full ROM, lymphadenopathy RESPIRATORY EXAM: normal lung sounds bilaterally. Absent: respiratory distress , wheezes, rales, rhonchi, stridor CARDIOVASCULAR EXAM: regular rate, normal rhythm, normal heart sounds. Absent : systolic murmur, diastolic murmur, rubs, gallop, clicks GI/ABDOMINAL EXAM: soft, normal bowel sounds. Absent: distended, tenderness, guarding, rebound, rigid EXTREMITIES EXAM: normal inspection, full ROM, normal capillary refill. Absent : tenderness, pedal edema, joint swelling, calf tenderness BACK EXAM: normal inspection NEUROLOGICAL EXAM: alert, oriented X3, no focal deficits PSYCHIATRIC EXAM: normal affect, normal mood SKIN EXAM: warm, dry, intact, normal color. Absent: rash - Labs CBC & Chem 7: 10/26/17 06:29 10/26/17 06:29 Labs: Abnormal Lab Results - Last 24 Hours (Table) 10/27/17 10/27/17 10/27/17 Range/Units 06:34 12:24 20:40 POC Glucose (mg/dL) 128 H 169 H 154 H (75-99) mg/dL Assessment and Plan Assessment: ASSESSMENT Chest pain. Possible Unstable angina History of stroke Type 2 diabetes mellitus Chronic nicotine dependence Essential hypertension COPD Seizure disorder Obstructive sleep apnea Hyperlipidemia GERD PLAN: Patient had a Sammie scan stress test done today that was inconclusive, so he is boarded for a cardiac cath tomorrow. Patient will be kept n.p.o. tonight. C/w the current medications and further recommendations to follow depending on the progress of the patient. Time with Patient: Greater than 30
[2017-10-28] MEDS: ACETAMINOPHEN TAB 500 MG TAB PO PRN (15:36)
--- NOTE | 2017-10-28 23:26 | P.DS ---
Providers Date of admission: 10/25/17 03:53 Expected date of discharge: 10/28/17 Attending physician: Magdalena Gomez Consults: 10/25/17 03:49 Consult Physician Urgent Consulting Provider: Mika Gonzalez Consult Reason/Comments: Chest pain Do you want consulting provider notified?: Yes Primary care physician: [facility] Course: Mr. Ramsay is a 47-year-old male with a past medical history of asthma, COPD, stroke, type 2 diabetes mellitus, GERD, hyperlipidemia, hypertension coming in with a chief complaint of chest discomfort. Patient was sitting at his home watching television when he started to have chest pains on the left side of the chest which radiating to the midsternal and so he came into the hospital for further evaluation. Patient denies having any difficulty in breathing, diaphoresis, nausea that is associated with the chest pain. He denies having any dizziness or lightheadedness. Patient states that when he tried to use his right arm his pain has been getting more worse. Patient has a history of stroke with some left-sided weakness and has diabetes. He is a current every day smoker. On 10/26/17 - Patient is comfortable in the bed this morning. He denies having any chest pain. As per nursing staff report no active overnight issues. On 10/27/17 - Patient is lying in the bed appears to be in no acute distress. He does not have any active complaints. He still complains of some chest discomfort on the left side of the chest. But denies having any difficulty in breathing or palpitations.Patient had a stress test done this morning which was questionable for areas of reversible ischemia on the anterolateral wall. On 10/28/17 - The patient had cardiac cath this morning showing normal coronaries and normal LV function. He was cleared to discharged by Cardiology. Patient's vitals and labs reviewed. DISCHARGE DIAGNOSIS Chest pain. Possible Unstable angina History of stroke Type 2 diabetes mellitus Chronic nicotine dependence Essential hypertension COPD Seizure disorder Obstructive sleep apnea Hyperlipidemia GERD Plan - Discharge Summary Discharge Rx Participant: No New Discharge Prescriptions: New Nicotine 21Mg/24Hr Patch [Habitrol] 1 patch TRANSDERM DAILY #7 patch Continue Loratadine [Claritin] 10 mg PO DAILY metFORMIN HCL [metFORMIN HCL ER] 1,000 mg PO AC-SUPPER Albuterol Nebulized [Ventolin Nebulized] 2.5 mg INHALATION RT-Q4H PRN PRN Reason: Shortness Of Breath Or Wheezing Gabapentin [Neurontin] 800 mg PO TID Tamsulosin HCl [Flomax] 0.4 mg PO DAILY Ergocalciferol [Vitamin D2 (DRISDOL)] 50,000 unit PO MO Dipyridamole-Aspirin 200-25 mg [Aggrenox 25MG -200MG] 1 tab PO BID Meloxicam [Mobic] 15 mg PO DAILY OXcarbazepine [Trileptal] 300 mg PO BID Montelukast [Singulair] 10 mg PO HS Fenofibrate Nanocrystallized [Fenofibrate] 48 mg PO DAILY Omeprazole [PriLOSEC] 40 mg PO DAILY Maalox 600mg Tab 600 mg PO BID Venlafaxine HCl ER [Effexor XR] 150 mg PO DAILY Fluticasone/Salmeterol [Advair 250-50 Diskus] 1 puff INHALATION RT-BID Acetaminophen Tab [Tylenol] 1,000 mg PO Q6H PRN PRN Reason: Pain Triamcinolone 0.025% Cream [Kenalog 0.025% Cream] 1 applic TOPICAL BID Simvastatin 80 mg PO HS Discharge Medication List Loratadine [Claritin] 10 mg PO DAILY 08/15/14 [History] metFORMIN HCL [metFORMIN HCL ER] 1,000 mg PO AC-SUPPER 08/15/14 [History] Albuterol Nebulized [Ventolin Nebulized] 2.5 mg INHALATION RT-Q4H PRN 07/03/15 [ History] Gabapentin [Neurontin] 800 mg PO TID 07/03/15 [History] Tamsulosin HCl [Flomax] 0.4 mg PO DAILY 07/03/15 [History] Dipyridamole-Aspirin 200-25 mg [Aggrenox 25MG -200MG] 1 tab PO BID 01/13/16 [ History] Ergocalciferol [Vitamin D2 (DRISDOL)] 50,000 unit PO MO 01/13/16 [History] Meloxicam [Mobic] 15 mg PO DAILY 01/13/16 [History] Fenofibrate Nanocrystallized [Fenofibrate] 48 mg PO DAILY 02/19/17 [History] Fluticasone/Salmeterol [Advair 250-50 Diskus] 1 puff INHALATION RT-BID 02/19/17 [History] Maalox 600mg Tab 600 mg PO BID 02/19/17 [History] Montelukast [Singulair] 10 mg PO HS 02/19/17 [History] OXcarbazepine [Trileptal] 300 mg PO BID 02/19/17 [History] Omeprazole [PriLOSEC] 40 mg PO DAILY 02/19/17 [History] Venlafaxine HCl ER [Effexor XR] 150 mg PO DAILY 02/19/17 [History] Acetaminophen Tab [Tylenol] 1,000 mg PO Q6H PRN 05/04/17 [History] Triamcinolone 0.025% Cream [Kenalog 0.025% Cream] 1 applic TOPICAL BID 05/04/17 [History] Simvastatin 80 mg PO HS 10/25/17 [History] Nicotine 21Mg/24Hr Patch [Habitrol] 1 patch TRANSDERM DAILY #7 patch 10/28/17 [ Rx] Follow up Appointment(s)/Referral(s): Ramya Saul MD [Primary Care Provider] - 1-2 days Mika Gonzalez MD [STAFF PHYSICIAN] - 11/23/17 3:45 pm Discharge Disposition: HOME SELF-CARE
[2017-11-01] MEDS ORDERED: ERGOCALCIFEROL 50,000 UNIT CAP PO SCH (09:00)
== END 2017-10-28 16:35 | disposition home or self-care (01) ==
LOC: EC 01:20 → 3OBS 03:53
PROVIDERS: ADMIT Hospitalist; ATTEND Hospitalist
DX: R07.89 Other chest pain (principal); E11.9 Type 2 diabetes mellitus without complications; J44.9 Chronic obstructive pulmonary disease, unspecified; I69.354 Hemiplegia and hemiparesis following cerebral infarction affecting left non-dominant side; I10 Essential (primary) hypertension; G40.909 Epilepsy, unspecified, not intractable, without status epilepticus; G47.33 Obstructive sleep apnea (adult) (pediatric); F17.200 Nicotine dependence, unspecified, uncomplicated; K21.9 Gastro-esophageal reflux disease without esophagitis; E78.5 Hyperlipidemia, unspecified; M19.90 Unspecified osteoarthritis, unspecified site; K76.9 Liver disease, unspecified; Z99.89 Dependence on other enabling machines and devices; H91.90 Unspecified hearing loss, unspecified ear; F20.9 Schizophrenia, unspecified; F31.9 Bipolar disorder, unspecified; Z87.01 Personal history of pneumonia (recurrent); Z79.1 Long term (current) use of non-steroidal anti-inflammatories (NSAID); Z79.4 Long term (current) use of insulin; Z79.51 Long term (current) use of inhaled steroids; Z79.899 Other long term (current) drug therapy; Z83.3 Family history of diabetes mellitus; Z80.3 Family history of malignant neoplasm of breast; Z80.0 Family history of malignant neoplasm of digestive organs; Z80.1 Family history of malignant neoplasm of trachea, bronchus and lung; Z88.1 Allergy status to other antibiotic agents; Z91.040 Latex allergy status; Z88.2 Allergy status to sulfonamides; Z88.8 Allergy status to other drugs, medicaments and biological substances; Z91.048 Other nonmedicinal substance allergy status; M25.511 Pain in right shoulder; E66.9 Obesity, unspecified; Z68.30 Body mass index [BMI] 30.0-30.9, adult
CPT/HCPCS: 99285 ×2; 99152; 36415; 94640 ×7; 94760; 93005 ×2; 93017; 93306; 93458; 85379; 80061; 80053; 80048; 82550; 82553; 83735; 84484; 85025 ×2; 85610; 85730; 83036; 71046; 78452; G0378 ×4; C1760; C1894; C1769; A9500; S4990 ×4; J2001; J2250; J2405; J3010; J2785 ×2; Q9967; J2270

== ENCOUNTER 2017-11-30 13:08 | Emergency (ER) | payer MEDICARE, OTHER ==
[2017-11-30] MEDS ORDERED: SODIUM CHLORIDE 0.9% 1,000 ML IV STA (13:35)
--- NOTE | 2017-11-30 13:57 | ED ---
General Adult HPI - General Chief complaint: Extremity Injury, Lower Stated complaint: Abd Pain Time Seen by Provider: 11/30/17 13:30 Source: patient, RN notes reviewed Mode of arrival: ambulatory Limitations: no limitations - History of Present Illness Initial comments: Patient 47-year-old male presenting to the emergency room today with a chief complaint of right-sided lower abdominal pain and right hip pain. Patient states the symptoms started 3 days ago. He denies any injury or fall. He doesn 't that the pain is worse with certain movements of the right hip but he feels it radiate up into the abdomen. Patient admits to pain even without movement. Patient denies any other associated symptoms. Patient denies any recent fever, chills, shortness of breath, chest pain, back pain, numbness or tingling, dysuria or hematuria, constipation or diarrhea, headaches or visual changes, or any other complaints. - Related Data Home Medications Medication Instructions Recorded Confirmed metFORMIN HCL [metFORMIN HCL ER] 1,000 mg PO AC-SUPPER 08/15/14 11/30/17 Gabapentin [Neurontin] 800 mg PO TID 07/03/15 11/30/17 Tamsulosin HCl [Flomax] 0.4 mg PO DAILY 07/03/15 11/30/17 Ergocalciferol [Vitamin D2 50,000 unit PO MO 01/13/16 11/30/17 (DRISDOL)] Fenofibrate Nanocrystallized 48 mg PO DAILY 02/19/17 11/30/17 [Fenofibrate] OXcarbazepine [Trileptal] 300 mg PO BID 02/19/17 11/30/17 Venlafaxine HCl ER [Effexor XR] 150 mg PO DAILY 02/19/17 11/30/17 Amoxicillin 1,000 mg PO ONCE 11/30/17 11/30/17 Amoxicillin 500 mg PO Q8H 11/30/17 11/30/17 Simvastatin [Zocor] 80 mg PO HS 11/30/17 11/30/17 fluPHENAZine DECANOATE [Prolixin 50 mg IM [id number] 11/30/17 11/30/17 Decanoate] Previous Rx's Medication Instructions Recorded Ibuprofen [Motrin] 600 mg PO Q6HR PRN #20 day 11/30/17 Allergies Allergy/AdvReac Type Severity Reaction Status Date / Time ciprofloxacin Allergy Unknown Nausea Verified 11/30/17 14:17 dicyclomine HCl [From Bentyl] Allergy Unknown Dyspnea Verified 11/30/17 14:17 latex Allergy Unknown Rash/Hives Verified 11/30/17 14:17 Macrolide Antibiotics Allergy Unknown Nausea Verified 11/30/17 14:17 diphenhydramine HCl Allergy Anaphylaxis Verified 11/30/17 14:17 [From Benadryl] adhesive AdvReac Unknown Itching Verified 11/30/17 14:17 sulfamethoxazole AdvReac Unknown Unknown Verified 11/30/17 14:17 [From Bactrim] trimethoprim [From Bactrim] AdvReac Unknown Unknown Verified 11/30/17 14:17 Review of Systems ROS Statement: Those systems with pertinent positive or pertinent negative responses have been documented in the HPI. ROS Other: All systems not noted in ROS Statement are negative. Past Medical History Past Medical History: Asthma, Chest Pain / Angina, COPD, CVA/TIA, Diabetes Mellitus, GERD/Reflux, Hearing Disorder / Deafness, Hyperlipidemia, Hypertension , Liver Disease, Osteoarthritis (OA), Pneumonia, Seizure Disorder, Sleep Apnea/ CPAP/BIPAP Additional Past Medical History / Comment(s): Cyst on kidney, uses cpap (22) History of Any Multi-Drug Resistant Organisms: None Reported Past Surgical History: Heart Catheterization, Orthopedic Surgery Additional Past Surgical History / Comment(s): Cysts removed, left thumb surgery Past Anesthesia/Blood Transfusion Reactions: Motion Sickness, Postoperative Nausea & Vomiting (PONV) Past Psychological History: Anxiety, Bipolar, Depression, Schizophrenia Smoking Status: Current every day smoker Past Alcohol Use History: Rare Past Drug Use History: Marijuana - Past Family History Brother(s) Family Medical History: Diabetes Mellitus Additional Family Medical History / Comment(s): Patient has 2 brothers. One from complications from diabetes. The second is alive with diabetes. Sister(s) Family Medical History: Cancer Additional Family Medical History / Comment(s): Patient has one sister with breast cancer. Patient does not have any children. Father Family Medical History: Cancer Additional Family Medical History / Comment(s): Father in his 40s or 50s from colon cancer. Mother Family Medical History: Cancer Additional Family Medical History / Comment(s): Mother at age 68 from lung cancer. General Exam - General Exam Comments Initial Comments: General: The patient is awake and alert, in no distress, and does not appear acutely ill. Eye: Pupils are equal, round and reactive to light, extra-ocular movements are intact. No nystagmus. There is normal conjunctiva bilaterally. No signs of icterus. Ears, nose, mouth and throat: There are moist mucous membranes and no oral lesions. Neck: The neck is supple, there is no tenderness or JVD. Cardiovascular: There is a regular rate and rhythm. No murmur, rub or gallop is appreciated. Respiratory: Lungs are clear to auscultation, respirations are non-labored, breath sounds are equal. No wheezes, stridor, rales, or rhonchi. Gastrointestinal: Abdomen soft on palpation. Patient does have tenderness right lower quadrant. No rebound tenderness. No guarding. No CVA tenderness. Musculoskeletal: No signs swelling or inflammation over the right hip. Normal appearance of the right leg. Sensation intact. Pulses 2+. Patient does have tenderness over the lateral aspect of right hip and with a logroll maneuver Strength 5/5. Neurological: A&O x 3. CN II-XII intact, There are no obvious motor or sensory deficits. Coordination appears grossly intact. Speech is normal. Skin: Skin is warm and dry and no rashes or lesions are noted. Psychiatric: Cooperative, appropriate mood & affect, normal judgment. Limitations: no limitations Course Vital Signs 11/30/17 11/30/17 13:20 14:20 Temperature 100.3 F H 97.3 F L Pulse Rate 82 Respiratory 18 Rate Blood Pressure 113/72 O2 Sat by Pulse 97 Oximetry Medical Decision Making - Medical Decision Making Patient reexamined at this time shows no signs of distress. Patient's pain reproduced with movements of the right hip. X-rays are negative for any acute fracture dislocation. X-ray of the abdomen negative. Patient had lab work obtained. Negative white count. Negative lactic acid. Patient did have initial temperature at triage of 100.3F. He had recently finished just drinking coffee. Repeat temperature was obtained and normal range. Patient doing well. Discharged home. Advised to use ibuprofen for pain. Advised return if any symptoms increase worsen. - Lab Data Result diagrams: 11/30/17 13:53 11/30/17 13:53 Lab Results 11/30/17 11/30/17 11/30/17 Range/Units 13:53 13:53 13:53 WBC 7.3 (3.8-10.6) k/uL RBC 5.04 (4.30-5.90) m/uL Hgb 16.2 (13.0-17.5) gm/dL Hct 45.0 (39.0-53.0) % MCV 89.3 (80.0-100.0) fL MCH 32.1 (25.0-35.0) pg MCHC 36.0 (31.0-37.0) g/dL RDW 13.3 (11.5-15.5) % Plt Count 213 (150-450) k/uL Neutrophils % 66 % Lymphocytes % 22 % Monocytes % 6 % Eosinophils % 5 % Basophils % 0 % Neutrophils # 4.8 (1.3-7.7) k/uL Lymphocytes # 1.6 (1.0-4.8) k/uL Monocytes # 0.4 (0-1.0) k/uL Eosinophils # 0.3 (0-0.7) k/uL Basophils # 0.0 (0-0.2) k/uL Sodium 144 (137-145) mmol/L Potassium 4.1 (3.5-5.1) mmol/L Chloride 107 (98-107) mmol/L Carbon Dioxide 24 (22-30) mmol/L Anion Gap 13 mmol/L BUN 16 (9-20) mg/dL Creatinine 1.10 (0.66-1.25) mg/dL Est GFR (CKD-EPI)AfAm >90 (>60 ml/min/1.73 sqM) Est GFR (CKD-EPI)NonAf 79 (>60 ml/min/1.73 sqM) Glucose 73 L (74-99) mg/dL Plasma Lactic Acid Hunter 1.0 (0.7-2.0) mmol/L Calcium 10.1 (8.4-10.2) mg/dL Total Bilirubin 0.3 (0.2-1.3) mg/dL AST 26 (17-59) U/L ALT 52 (21-72) U/L Alkaline Phosphatase 65 (38-126) U/L Total Protein 6.5 (6.3-8.2) g/dL Albumin 4.4 (3.5-5.0) g/dL Lipase 299 (23-300) U/L Urine Color Urine Appearance (Clear) Urine pH (5.0-8.0) Ur Specific Eckerman (1.001-1.035) Urine Protein (Negative) Urine Glucose (UA) (Negative) Urine Ketones (Negative) Urine Blood (Negative) Urine Nitrite (Negative) Urine Bilirubin (Negative) Urine Urobilinogen (<2.0) mg/dL Ur Leukocyte Esterase (Negative) 11/30/17 Range/Units 14:09 WBC (3.8-10.6) k/uL RBC (4.30-5.90) m/uL Hgb (13.0-17.5) gm/dL Hct (39.0-53.0) % MCV (80.0-100.0) fL MCH (25.0-35.0) pg MCHC (31.0-37.0) g/dL RDW (11.5-15.5) % Plt Count (150-450) k/uL Neutrophils % % Lymphocytes % % Monocytes % % Eosinophils % % Basophils % % Neutrophils # (1.3-7.7) k/uL Lymphocytes # (1.0-4.8) k/uL Monocytes # (0-1.0) k/uL Eosinophils # (0-0.7) k/uL Basophils # (0-0.2) k/uL Sodium (137-145) mmol/L Potassium (3.5-5.1) mmol/L Chloride (98-107) mmol/L Carbon Dioxide (22-30) mmol/L Anion Gap mmol/L BUN (9-20) mg/dL Creatinine (0.66-1.25) mg/dL Est GFR (CKD-EPI)AfAm (>60 ml/min/1.73 sqM) Est GFR (CKD-EPI)NonAf (>60 ml/min/1.73 sqM) Glucose (74-99) mg/dL Plasma Lactic Acid Hunter (0.7-2.0) mmol/L Calcium (8.4-10.2) mg/dL Total Bilirubin (0.2-1.3) mg/dL AST (17-59) U/L ALT (21-72) U/L Alkaline Phosphatase (38-126) U/L Total Protein (6.3-8.2) g/dL Albumin (3.5-5.0) g/dL Lipase (23-300) U/L Urine Color Yellow Urine Appearance Clear (Clear) Urine pH 6.0 (5.0-8.0) Ur Specific Eckerman 1.018 (1.001-1.035) Urine Protein Negative (Negative) Urine Glucose (UA) 2+ H (Negative) Urine Ketones Negative (Negative) Urine Blood Negative (Negative) Urine Nitrite Negative (Negative) Urine Bilirubin Negative (Negative) Urine Urobilinogen 2.0 (<2.0) mg/dL Ur Leukocyte Esterase Negative (Negative) Disposition Clinical Impression: Hip pain Disposition: HOME SELF-CARE Condition: Good Instructions: Hip Pain (ED) Additional Instructions: Please use medication as discussed. Please follow-up with family doctor in the next 2 days of symptoms have not improved. Please return to emergency room if the symptoms increase or worsen or for any other concerns. Prescriptions: Ibuprofen [Motrin] 600 mg PO Q6HR PRN #20 day PRN Reason: Pain Is patient prescribed a controlled substance at d/c from ED?: No Referrals: Ramya Saul MD [Primary Care Provider] - 1-2 days Time of Disposition: 15:22
[2017-11-30 14:18] LABS: Basophils % (A) 0 %; Eosinophils # (A) 0.3 k/uL (0-0.7); Eosinophils % (A) 5 %; HGB 16.2 gm/dL (13.0-17.5); Lymphocytes # (A) 1.6 k/uL (1.0-4.8); Lymphocytes % (A) 22 %; MCH 32.1 pg (25.0-35.0); MCV 89.3 fL (80.0-100.0); Mean Platelet Volume 7.1; Monocytes # (A) 0.4 k/uL (0-1.0); Monocytes % (A) 6 %; Neutrophils # (A) 4.8 k/uL (1.3-7.7); Neutrophils % (A) 66 %; Platelet Count 213 k/uL (150-450); RBC 5.04 m/uL (4.30-5.90); RDW 13.3 % (11.5-15.5); WBC 7.3 k/uL (3.8-10.6)
[2017-11-30 14:24] LABS: ALT 52 U/L (21-72); AST 26 U/L (17-59); Albumin 4.4 g/dL (3.5-5.0); Alkaline Phosphatase 65 U/L (38-126); Anion Gap 13 mmol/L; Blood Urea Nitrogen 16 mg/dL (9-20); Calcium 10.1 mg/dL (8.4-10.2); Carbon Dioxide 24 mmol/L (22-30); Chloride 107 mmol/L (98-107); Glucose 73 mg/dL (74-99); Lipase 299 U/L (23-300); Potassium 4.1 mmol/L (3.5-5.1); Sodium 144 mmol/L (137-145); Total Bilirubin 0.3 mg/dL (0.2-1.3); Total Protein 6.5 g/dL (6.3-8.2)
[2017-11-30 14:27] LABS: Appearance,Urine Clear (Clear); Bilirubin,Urine Negative (Negative); Blood,Urine Negative (Negative); Color,Urine Yellow; Glucose,Urine (UA) 2+ (Negative); Ketones,Urine Negative (Negative); Leukocyte Esterase,Urine Negative (Negative); Nitrite,Urine Negative (Negative); Protein,Urine Negative (Negative); Specific Gravity,Urine 1.018 (1.001-1.035)
--- NOTE | 2017-11-30 14:35 | XR ---
Abdomen HISTORY: Left lower quadrant pain, dizziness and nausea Frontal view of the abdomen submitted on 2 images and compared to prior dated 07/11/2014 Lung bases are clear. There is no evident bowel structure nor pneumoperitoneum. Calcification in the left hemipelvis is stable. Bone mineralization is normal. Lung bases are clear. IMPRESSION: Nonobstructive bowel gas pattern.
--- NOTE | 2017-11-30 15:15 | XR ---
EXAMINATION TYPE: XR Hip RT and AP Pelvis DATE OF EXAM: 11/30/2017 COMPARISON: NONE HISTORY: Right hip pain TECHNIQUE: A single AP view of the pelvis is obtained. Two views of the right hip are obtained. FINDINGS: There is no acute fracture/dislocation evident in the pelvis. The hip and sacroiliac join ts appear symmetric and unremarkable. The overlying soft tissue appears unremarkable. Two views of right hip show no acute fracture or dislocation. No focal lytic or sclerotic lesion see n in the proximal right femur. The overlying soft tissue is unremarkable. IMPRESSION: There is no acute fracture or dislocation in the pelvis or right hip.
[2017-11-30 16:01] VITALS: BP 127/75; PULSE 72; RESP 16; TEMP 98
== END 2017-11-30 16:04 | disposition home or self-care (01) ==
LOC: EC 13:08
DX: M25.551 Pain in right hip (principal); R10.30 Lower abdominal pain, unspecified; E11.9 Type 2 diabetes mellitus without complications; K21.9 Gastro-esophageal reflux disease without esophagitis; H91.90 Unspecified hearing loss, unspecified ear; E78.5 Hyperlipidemia, unspecified; I10 Essential (primary) hypertension; G40.909 Epilepsy, unspecified, not intractable, without status epilepticus; G47.30 Sleep apnea, unspecified; Z99.89 Dependence on other enabling machines and devices; F20.9 Schizophrenia, unspecified; F31.9 Bipolar disorder, unspecified; F41.9 Anxiety disorder, unspecified; F17.200 Nicotine dependence, unspecified, uncomplicated; Z79.84 Long term (current) use of oral hypoglycemic drugs; Z79.899 Other long term (current) drug therapy; Z88.1 Allergy status to other antibiotic agents; Z88.2 Allergy status to sulfonamides; Z88.8 Allergy status to other drugs, medicaments and biological substances; Z91.048 Other nonmedicinal substance allergy status; Z91.040 Latex allergy status; Z95.818 Presence of other cardiac implants and grafts
CPT/HCPCS: 36415; 73502; 74018; 80053; 81003; 83605; 83690; 85025; 87040; 87086; 96360; 96361; 99283

== ENCOUNTER 2017-12-20 15:19 | Emergency (ER) | payer MEDICARE, OTHER ==
[2017-12-20 15:49] VITALS: TEMP 98.5
[2017-12-20 16:29] LABS: Basophils % (A) 0 %; Eosinophils # (A) 0.3 k/uL (0-0.7); Eosinophils % (A) 3 %; HCT 42.2 % (39.0-53.0); Lymphocytes # (A) 1.8 k/uL (1.0-4.8); Lymphocytes % (A) 18 %; MCHC 35.5 g/dL (31.0-37.0); MCV 87.3 fL (80.0-100.0); Mean Platelet Volume 7.1; Monocytes # (A) 0.7 k/uL (0-1.0); Monocytes % (A) 7 %; Neutrophils # (A) 7.1 k/uL (1.3-7.7); Neutrophils % (A) 70 %; Platelet Count 291 k/uL (150-450); RBC 4.83 m/uL (4.30-5.90); RDW 12.2 % (11.5-15.5); WBC 10.1 k/uL (3.8-10.6)
[2017-12-20 16:32] LABS: ALT 55 U/L (21-72); AST 32 U/L (17-59); Albumin 4.2 g/dL (3.5-5.0); Alkaline Phosphatase 87 U/L (38-126); Anion Gap 10 mmol/L; Blood Urea Nitrogen 11 mg/dL (9-20); Calcium 9.7 mg/dL (8.4-10.2); Carbon Dioxide 24 mmol/L (22-30); Chloride 107 mmol/L (98-107); Glucose 95 mg/dL (74-99); Potassium 3.9 mmol/L (3.5-5.1); Sodium 141 mmol/L (137-145); Total Bilirubin 0.3 mg/dL (0.2-1.3); Total Protein 6.5 g/dL (6.3-8.2)
[2017-12-20 16:42] LABS: Creatine Kinase 435 U/L (55-170)
[2017-12-20 16:55] LABS: Troponin I <0.012 ng/mL (0.000-0.034)
[2017-12-20 16:56] LABS: Creatine Kinase MB 2.5 ng/mL (0.0-2.4)
[2017-12-20] MEDS ORDERED: IPRATROPIUM-ALBUTEROL 3 ML NEB INHALATION STA (17:17)
[2017-12-20] MEDS ORDERED: SODIUM CHLORIDE 0.9% 1,000 ML IV ONE (17:17)
[2017-12-20] MEDS ORDERED: DEXAMETHASONE SOD PHOSPHATE 10 MG/ML 1 ML VIAL IV STA (17:17)
[2017-12-20] MEDS ORDERED: ONDANSETRON 4 MG/2 ML VIAL IVP STA (17:41)
[2017-12-20 17:51] VITALS: PULSE 71
--- NOTE | 2017-12-20 18:24 | XR ---
EXAMINATION TYPE: XR chest 2V DATE OF EXAM: 12/20/2017 COMPARISON: 10/25/2017 HISTORY: Short of breath TECHNIQUE: Frontal and lateral views of the chest are obtained. FINDINGS: Heart and mediastinum are normal. Lungs are clear. Diaphragm is normal. Bony thorax appear s normal. IMPRESSION: Normal chest. No change.
--- NOTE | 2017-12-20 19:06 | ED ---
General Adult HPI - General Chief complaint: Shortness of Breath Stated complaint: Dr Sent/SOB Time Seen by Provider: 12/20/17 17:14 Source: patient, RN notes reviewed, old records reviewed Mode of arrival: wheelchair Limitations: no limitations - History of Present Illness Initial comments: 47-year-old male presenting with cough and dyspnea. Patient was sent by his primary care physician for concern for pneumonia. He has had a productive cough for the past several days. No chest pain. No abdominal pain or nausea vomiting. No fever or chills. He does have history of COPD and he is a current smoker. - Related Data Home Medications Medication Instructions Recorded Confirmed metFORMIN HCL [metFORMIN HCL ER] 1,000 mg PO AC-SUPPER 08/15/14 12/20/17 Gabapentin [Neurontin] 800 mg PO QID 07/03/15 12/20/17 Tamsulosin HCl [Flomax] 0.4 mg PO DAILY 07/03/15 12/20/17 Ergocalciferol [Vitamin D2 50,000 unit PO MO 01/13/16 12/20/17 (DRISDOL)] OXcarbazepine [Trileptal] 300 mg PO BID 02/19/17 12/20/17 Venlafaxine HCl ER [Effexor XR] 300 mg PO DAILY 02/19/17 12/20/17 fluPHENAZine DECANOATE [Prolixin 50 mg IM [id number] 11/30/17 12/20/17 Decanoate] Albuterol Nebulized [Ventolin 2.5 mg INHALATION RT-Q6H PRN 12/20/17 12/20/17 Nebulized] Albuterol Sulfate [Proair Hfa] 2 puff INHALATION RT-Q6H PRN 12/20/17 12/20/17 Dipyridamole-Aspirin 200-25 mg 1 cap PO BID 12/20/17 12/20/17 [Aggrenox] Loratadine [Claritin] 10 mg PO DAILY 12/20/17 12/20/17 Meloxicam 15 mg PO DAILY 12/20/17 12/20/17 Omeprazole [PriLOSEC] 20 mg PO DAILY 12/20/17 12/20/17 Simvastatin 40 mg PO DAILY 12/20/17 12/20/17 Previous Rx's Medication Instructions Recorded Albuterol Inhaler [Ventolin Hfa 1 - 2 puff INHALATION Q4HR PRN #1 12/20/17 Inhaler] inhaler Amoxic-Pot Clav 875-125Mg 1 tab PO Q12HR #14 tablet 12/20/17 [Augmentin 875-125] predniSONE 50 mg PO DAILY #5 tab 12/20/17 Allergies Allergy/AdvReac Type Severity Reaction Status Date / Time ciprofloxacin Allergy Unknown Nausea Verified 12/20/17 17:40 dicyclomine HCl [From Bentyl] Allergy Unknown Dyspnea Verified 12/20/17 17:40 latex Allergy Unknown Rash/Hives Verified 12/20/17 17:40 Macrolide Antibiotics Allergy Unknown Nausea Verified 12/20/17 17:40 diphenhydramine HCl Allergy Anaphylaxis Verified 12/20/17 17:40 [From Benadryl] adhesive AdvReac Unknown Itching Verified 12/20/17 17:40 sulfamethoxazole AdvReac Unknown Unknown Verified 12/20/17 17:40 [From Bactrim] trimethoprim [From Bactrim] AdvReac Unknown Unknown Verified 12/20/17 17:40 Review of Systems ROS Statement: Those systems with pertinent positive or pertinent negative responses have been documented in the HPI. ROS Other: All systems not noted in ROS Statement are negative. Past Medical History Past Medical History: Asthma, Chest Pain / Angina, COPD, CVA/TIA, Diabetes Mellitus, GERD/Reflux, Hearing Disorder / Deafness, Hyperlipidemia, Hypertension , Liver Disease, Osteoarthritis (OA), Pneumonia, Seizure Disorder, Sleep Apnea/ CPAP/BIPAP Additional Past Medical History / Comment(s): Cyst on kidney, uses cpap (22) History of Any Multi-Drug Resistant Organisms: None Reported Past Surgical History: Heart Catheterization, Orthopedic Surgery Additional Past Surgical History / Comment(s): Cysts removed, left thumb surgery Past Anesthesia/Blood Transfusion Reactions: Motion Sickness, Postoperative Nausea & Vomiting (PONV) Past Psychological History: Anxiety, Bipolar, Depression, Schizophrenia Smoking Status: Current every day smoker Past Alcohol Use History: None Reported Past Drug Use History: Marijuana - Past Family History Brother(s) Family Medical History: Diabetes Mellitus Additional Family Medical History / Comment(s): Patient has 2 brothers. One from complications from diabetes. The second is alive with diabetes. Sister(s) Family Medical History: Cancer Additional Family Medical History / Comment(s): Patient has one sister with breast cancer. Patient does not have any children. Father Family Medical History: Cancer Additional Family Medical History / Comment(s): Father in his 40s or 50s from colon cancer. Mother Family Medical History: Cancer Additional Family Medical History / Comment(s): Mother at age 68 from lung cancer. General Exam Limitations: no limitations General appearance: alert, in no apparent distress Head exam: Present: atraumatic, normocephalic Eye exam: Present: normal appearance, PERRL, EOMI ENT exam: Present: normal exam Neck exam: Present: normal inspection. Absent: tenderness, meningismus Respiratory exam: Present: wheezes, decreased breath sounds. Absent: respiratory distress, rhonchi, prolonged expiratory Cardiovascular Exam: Present: regular rate, normal rhythm GI/Abdominal exam: Present: soft. Absent: distended, tenderness, guarding Extremities exam: Present: normal inspection, full ROM, tenderness, normal capillary refill. Absent: pedal edema, calf tenderness Neurological exam: Present: alert, oriented X3 Psychiatric exam: Present: normal affect, normal mood Skin exam: Present: warm, dry, intact. Absent: cyanosis, diaphoretic Course Vital Signs 12/20/17 12/20/17 12/20/17 15:47 17:40 17:48 Temperature 98.5 F Pulse Rate 90 90 90 Respiratory 18 Rate Blood Pressure 121/76 O2 Sat by Pulse 96 Oximetry 12/20/17 17:49 Temperature Pulse Rate 71 Respiratory 20 Rate Blood Pressure 122/79 O2 Sat by Pulse 99 Oximetry EKG Findings - EKG Comments: EKG Findings:: EKG: Normal sinus rhythm, incomplete right bundle branch block, rate of 67, TX interval 126, QRS duration 106, QTC 439 no signs of acute ischemia. Medical Decision Making - Medical Decision Making 47-year-old male presenting with cough and dyspnea. He does have history of COPD and is a current smoker. He has diminished breath sounds and end expiratory wheezing. No respiratory distress, normal vital signs. Chest x- rays obtained, negative for focal pneumonia. Laboratory studies are unremarkable. Patient will be started on prednisone, azithromycin, and albuterol inhaler. He will follow-up with his primary care physician. - Lab Data Result diagrams: 12/20/17 16:10 12/20/17 16:10 Lab Results 12/20/17 12/20/17 12/20/17 Range/Units 16:10 16:10 16:10 WBC 10.1 (3.8-10.6) k/uL RBC 4.83 (4.30-5.90) m/uL Hgb 15.0 (13.0-17.5) gm/dL Hct 42.2 (39.0-53.0) % MCV 87.3 (80.0-100.0) fL MCH 31.0 (25.0-35.0) pg MCHC 35.5 (31.0-37.0) g/dL RDW 12.2 (11.5-15.5) % Plt Count 291 (150-450) k/uL Neutrophils % 70 % Lymphocytes % 18 % Monocytes % 7 % Eosinophils % 3 % Basophils % 0 % Neutrophils # 7.1 (1.3-7.7) k/uL Lymphocytes # 1.8 (1.0-4.8) k/uL Monocytes # 0.7 (0-1.0) k/uL Eosinophils # 0.3 (0-0.7) k/uL Basophils # 0.0 (0-0.2) k/uL Sodium 141 (137-145) mmol/L Potassium 3.9 (3.5-5.1) mmol/L Chloride 107 (98-107) mmol/L Carbon Dioxide 24 (22-30) mmol/L Anion Gap 10 mmol/L BUN 11 (9-20) mg/dL Creatinine 0.70 (0.66-1.25) mg/dL Est GFR (CKD-EPI)AfAm >90 (>60 ml/min/1.73 sqM) Est GFR (CKD-EPI)NonAf >90 (>60 ml/min/1.73 sqM) Glucose 95 (74-99) mg/dL Plasma Lactic Acid Hunter (0.7-2.0) mmol/L Calcium 9.7 (8.4-10.2) mg/dL Total Bilirubin 0.3 (0.2-1.3) mg/dL AST 32 (17-59) U/L ALT 55 (21-72) U/L Alkaline Phosphatase 87 (38-126) U/L Total Creatine Kinase 435 H (55-170) U/L CK-MB (CK-2) 2.5 H* (0.0-2.4) ng/mL CK-MB (CK-2) Rel Index 0.6 Troponin I <0.012 (0.000-0.034) ng/mL NT-Pro-B Natriuret Pep pg/mL Total Protein 6.5 (6.3-8.2) g/dL Albumin 4.2 (3.5-5.0) g/dL 12/20/17 12/20/17 Range/Units 16:10 16:10 WBC (3.8-10.6) k/uL RBC (4.30-5.90) m/uL Hgb (13.0-17.5) gm/dL Hct (39.0-53.0) % MCV (80.0-100.0) fL MCH (25.0-35.0) pg MCHC (31.0-37.0) g/dL RDW (11.5-15.5) % Plt Count (150-450) k/uL Neutrophils % % Lymphocytes % % Monocytes % % Eosinophils % % Basophils % % Neutrophils # (1.3-7.7) k/uL Lymphocytes # (1.0-4.8) k/uL Monocytes # (0-1.0) k/uL Eosinophils # (0-0.7) k/uL Basophils # (0-0.2) k/uL Sodium (137-145) mmol/L Potassium (3.5-5.1) mmol/L Chloride (98-107) mmol/L Carbon Dioxide (22-30) mmol/L Anion Gap mmol/L BUN (9-20) mg/dL Creatinine (0.66-1.25) mg/dL Est GFR (CKD-EPI)AfAm (>60 ml/min/1.73 sqM) Est GFR (CKD-EPI)NonAf (>60 ml/min/1.73 sqM) Glucose (74-99) mg/dL Plasma Lactic Acid Hunter 1.2 (0.7-2.0) mmol/L Calcium (8.4-10.2) mg/dL Total Bilirubin (0.2-1.3) mg/dL AST (17-59) U/L ALT (21-72) U/L Alkaline Phosphatase (38-126) U/L Total Creatine Kinase (55-170) U/L CK-MB (CK-2) (0.0-2.4) ng/mL CK-MB (CK-2) Rel Index Troponin I (0.000-0.034) ng/mL NT-Pro-B Natriuret Pep 31 pg/mL Total Protein (6.3-8.2) g/dL Albumin (3.5-5.0) g/dL Disposition Clinical Impression: COPD (chronic obstructive pulmonary disease) Disposition: HOME SELF-CARE Condition: Good Instructions: Chronic Bronchitis (ED) Prescriptions: Albuterol Inhaler [Ventolin Hfa Inhaler] 1 - 2 puff INHALATION Q4HR PRN #1 inhaler PRN Reason: Shortness Of Breath Amoxic-Pot Clav 875-125Mg [Augmentin 875-125] 1 tab PO Q12HR #14 tablet predniSONE 50 mg PO DAILY #5 tab Is patient prescribed a controlled substance at d/c from ED?: No Referrals: Ramya Saul MD [Primary Care Provider] - 1-2 days Time of Disposition: 19:04
[2017-12-20 19:27] VITALS: BP 113/67; RESP 18
[2017-12-20] MEDS ORDERED: ALBUTEROL NEBULIZED 2.5 MG/3 ML INHALATION SCH (20:00)
== END 2017-12-20 19:26 | disposition home or self-care (01) ==
LOC: EC 15:19
DX: J44.9 Chronic obstructive pulmonary disease, unspecified (principal); I20.9 Angina pectoris, unspecified; E11.9 Type 2 diabetes mellitus without complications; K21.9 Gastro-esophageal reflux disease without esophagitis; H91.90 Unspecified hearing loss, unspecified ear; E78.5 Hyperlipidemia, unspecified; M19.90 Unspecified osteoarthritis, unspecified site; G40.909 Epilepsy, unspecified, not intractable, without status epilepticus; G47.30 Sleep apnea, unspecified; F41.9 Anxiety disorder, unspecified; F31.9 Bipolar disorder, unspecified; F20.9 Schizophrenia, unspecified; F17.200 Nicotine dependence, unspecified, uncomplicated; Z99.89 Dependence on other enabling machines and devices; Z86.73 Personal history of transient ischemic attack (TIA), and cerebral infarction without residual deficits; Z79.1 Long term (current) use of non-steroidal anti-inflammatories (NSAID); Z79.84 Long term (current) use of oral hypoglycemic drugs; Z79.899 Other long term (current) drug therapy; Z88.1 Allergy status to other antibiotic agents; Z88.2 Allergy status to sulfonamides; Z88.8 Allergy status to other drugs, medicaments and biological substances; Z91.040 Latex allergy status
CPT/HCPCS: 36415; 94640; 93005; 83880; 80053; 82550; 82553; 83605; 84484; 85025; 87040; 71046; 99285; 96374; 96375; 96361; J1100; J2405

== ENCOUNTER 2018-01-10 11:16 | Observation (INO) | payer MEDICARE, OTHER ==
[2018-01-10] MEDS ORDERED: METOCLOPRAMIDE 5 MG/ML 2 ML VIAL IVP STA (12:05)
--- NOTE | 2018-01-10 12:06 | ED ---
General Adult HPI - General Chief complaint: Abdominal Pain Stated complaint: abd pain, diarrhea Time Seen by Provider: 01/10/18 11:54 Source: patient, RN notes reviewed Mode of arrival: ambulatory Limitations: no limitations - History of Present Illness Initial comments: Patient is a pleasant 47-year-old male presenting to the emergency department on episode of diarrhea. Episode occurred this morning. Patient has had some associated left lower abdominal discomfort. Discomfort continues however is mild. Patient does have mild nausea. No fevers. No bloody stools. No black tarry stools. No hematuria or dysuria. - Related Data Home Medications Medication Instructions Recorded Confirmed metFORMIN HCL [metFORMIN HCL ER] 1,000 mg PO AC-SUPPER 08/15/14 01/10/18 Gabapentin [Neurontin] 800 mg PO QID 07/03/15 01/10/18 Tamsulosin HCl [Flomax] 0.4 mg PO DAILY 07/03/15 01/10/18 Ergocalciferol [Vitamin D2 50,000 unit PO MO 01/13/16 01/10/18 (DRISDOL)] OXcarbazepine [Trileptal] 300 mg PO BID 02/19/17 01/10/18 Venlafaxine HCl ER [Effexor XR] 300 mg PO DAILY 02/19/17 01/10/18 fluPHENAZine DECANOATE [Prolixin 50 mg IM [id number] 11/30/17 01/10/18 Decanoate] Albuterol Nebulized [Ventolin 2.5 mg INHALATION RT-Q6H PRN 12/20/17 01/10/18 Nebulized] Albuterol Sulfate [Proair Hfa] 2 puff INHALATION RT-Q6H PRN 12/20/17 01/10/18 Dipyridamole-Aspirin 200-25 mg 1 cap PO BID 12/20/17 01/10/18 [Aggrenox] Loratadine [Claritin] 10 mg PO DAILY 12/20/17 01/10/18 Meloxicam 15 mg PO DAILY 12/20/17 01/10/18 Omeprazole [PriLOSEC] 20 mg PO DAILY 12/20/17 01/10/18 Simvastatin 40 mg PO DAILY 12/20/17 01/10/18 Previous Rx's Medication Instructions Recorded Albuterol Inhaler [Ventolin Hfa 1 - 2 puff INHALATION Q4HR PRN #1 12/20/17 Inhaler] inhaler Allergies Allergy/AdvReac Type Severity Reaction Status Date / Time ciprofloxacin Allergy Unknown Nausea Verified 01/10/18 12:04 dicyclomine HCl [From Bentyl] Allergy Unknown Dyspnea Verified 01/10/18 12:04 latex Allergy Unknown Rash/Hives Verified 01/10/18 12:04 Macrolide Antibiotics Allergy Unknown Nausea Verified 01/10/18 12:04 diphenhydramine HCl Allergy Anaphylaxis Verified 01/10/18 12:04 [From Benadryl] adhesive AdvReac Unknown Itching Verified 01/10/18 12:04 sulfamethoxazole AdvReac Unknown Unknown Verified 01/10/18 12:04 [From Bactrim] trimethoprim [From Bactrim] AdvReac Unknown Unknown Verified 01/10/18 12:04 Review of Systems ROS Statement: Those systems with pertinent positive or pertinent negative responses have been documented in the HPI. ROS Other: All systems not noted in ROS Statement are negative. Constitutional: Denies: fever Eyes: Denies: eye pain ENT: Denies: ear pain Respiratory: Denies: cough Cardiovascular: Reports: chest pain (Chronic and unchanged) Endocrine: Denies: fatigue Gastrointestinal: Reports: as per HPI, abdominal pain, nausea (Mild), diarrhea ( 1 episode). Denies: vomiting, melena, hematochezia Genitourinary: Denies: hematuria Musculoskeletal: Denies: back pain Skin: Denies: rash Neurological: Denies: weakness Past Medical History Past Medical History: Asthma, Chest Pain / Angina, COPD, CVA/TIA, Diabetes Mellitus, GERD/Reflux, Hearing Disorder / Deafness, Hyperlipidemia, Hypertension , Liver Disease, Osteoarthritis (OA), Pneumonia, Seizure Disorder, Sleep Apnea/ CPAP/BIPAP Additional Past Medical History / Comment(s): Cyst on kidney, uses cpap (22) History of Any Multi-Drug Resistant Organisms: None Reported Past Surgical History: Heart Catheterization, Orthopedic Surgery Additional Past Surgical History / Comment(s): Cysts removed, left thumb surgery Past Anesthesia/Blood Transfusion Reactions: Motion Sickness, Postoperative Nausea & Vomiting (PONV) Past Psychological History: Anxiety, Bipolar, Depression, Schizophrenia Smoking Status: Current every day smoker Past Alcohol Use History: None Reported, Rare Past Drug Use History: Marijuana - Past Family History Brother(s) Family Medical History: Diabetes Mellitus Additional Family Medical History / Comment(s): Patient has 2 brothers. One from complications from diabetes. The second is alive with diabetes. Sister(s) Family Medical History: Cancer Additional Family Medical History / Comment(s): Patient has one sister with breast cancer. Patient does not have any children. Father Family Medical History: Cancer Additional Family Medical History / Comment(s): Father in his 40s or 50s from colon cancer. Mother Family Medical History: Cancer Additional Family Medical History / Comment(s): Mother at age 68 from lung cancer. General Exam Limitations: no limitations General appearance: alert, in no apparent distress Head exam: Present: atraumatic Eye exam: Present: normal appearance, PERRL ENT exam: Present: normal oropharynx Neck exam: Present: normal inspection Respiratory exam: Present: normal lung sounds bilaterally Cardiovascular Exam: Present: regular rate, normal rhythm Expanded Peripheral pulses: 2+: Radial (R), Radial (L), Posterior Tibialis (R), Posterior Tibialis (L) GI/Abdominal exam: Present: soft, tenderness (Mild tenderness left lower quadrant), normal bowel sounds. Absent: distended, guarding, rebound, rigid, pulsatile mass exam: Present: normal inspection. Absent: testicular tenderness, scrotal swelling Extremities exam: Present: normal inspection. Absent: pedal edema, calf tenderness Neurological exam: Present: alert Psychiatric exam: Present: normal affect, normal mood Skin exam: Present: normal color. Absent: rash Course Vital Signs 01/10/18 11:39 Temperature 98.8 F Pulse Rate 74 Respiratory 18 Rate Blood Pressure 111/77 O2 Sat by Pulse 98 Oximetry Medical Decision Making - Medical Decision Making Patient reevaluated and resting comfortably in bed. Abdomen soft with mild tenderness no more in the epigastric region. Patient updated on results. Case was discussed with Dr. Gomez, who will admit for observation. Computed tomography scan will be ordered. - Lab Data Result diagrams: 01/10/18 12:17 01/10/18 12:17 Lab Results 01/10/18 01/10/18 01/10/18 Range/Units 12:17 12:17 12:17 WBC 6.8 (3.8-10.6) k/uL RBC 4.64 (4.30-5.90) m/uL Hgb 14.6 (13.0-17.5) gm/dL Hct 41.4 (39.0-53.0) % MCV 89.3 (80.0-100.0) fL MCH 31.4 (25.0-35.0) pg MCHC 35.1 (31.0-37.0) g/dL RDW 13.4 (11.5-15.5) % Plt Count 218 (150-450) k/uL Neutrophils % 65 % Lymphocytes % 21 % Monocytes % 7 % Eosinophils % 6 % Basophils % 0 % Neutrophils # 4.4 (1.3-7.7) k/uL Lymphocytes # 1.4 (1.0-4.8) k/uL Monocytes # 0.5 (0-1.0) k/uL Eosinophils # 0.4 (0-0.7) k/uL Basophils # 0.0 (0-0.2) k/uL PT 9.8 (9.0-12.0) sec INR 1.0 (<1.2) APTT 22.5 (22.0-30.0) sec Sodium 141 (137-145) mmol/L Potassium 4.0 (3.5-5.1) mmol/L Chloride 112 H (98-107) mmol/L Carbon Dioxide 22 (22-30) mmol/L Anion Gap 7 mmol/L BUN 11 (9-20) mg/dL Creatinine 0.80 (0.66-1.25) mg/dL Est GFR (CKD-EPI)AfAm >90 (>60 ml/min/1.73 sqM) Est GFR (CKD-EPI)NonAf >90 (>60 ml/min/1.73 sqM) Glucose 107 H (74-99) mg/dL Calcium 9.6 (8.4-10.2) mg/dL Total Bilirubin 0.2 (0.2-1.3) mg/dL AST 22 (17-59) U/L ALT 42 (21-72) U/L Alkaline Phosphatase 71 (38-126) U/L Total Protein 6.3 (6.3-8.2) g/dL Albumin 4.1 (3.5-5.0) g/dL Amylase 173 H (30-110) U/L Lipase 1007 H (23-300) U/L Urine Color Urine Appearance (Clear) Urine pH (5.0-8.0) Ur Specific Mcclure (1.001-1.035) Urine Protein (Negative) Urine Glucose (UA) (Negative) Urine Ketones (Negative) Urine Blood (Negative) Urine Nitrite (Negative) Urine Bilirubin (Negative) Urine Urobilinogen (<2.0) mg/dL Ur Leukocyte Esterase (Negative) Urine WBC (0-5) /hpf Amorphous Sediment (None) /hpf Urine Bacteria (None) /hpf Hyaline Casts (0-2) /lpf Urine Mucus (None) /hpf 01/10/18 Range/Units 12:28 WBC (3.8-10.6) k/uL RBC (4.30-5.90) m/uL Hgb (13.0-17.5) gm/dL Hct (39.0-53.0) % MCV (80.0-100.0) fL MCH (25.0-35.0) pg MCHC (31.0-37.0) g/dL RDW (11.5-15.5) % Plt Count (150-450) k/uL Neutrophils % % Lymphocytes % % Monocytes % % Eosinophils % % Basophils % % Neutrophils # (1.3-7.7) k/uL Lymphocytes # (1.0-4.8) k/uL Monocytes # (0-1.0) k/uL Eosinophils # (0-0.7) k/uL Basophils # (0-0.2) k/uL PT (9.0-12.0) sec INR (<1.2) APTT (22.0-30.0) sec Sodium (137-145) mmol/L Potassium (3.5-5.1) mmol/L Chloride (98-107) mmol/L Carbon Dioxide (22-30) mmol/L Anion Gap mmol/L BUN (9-20) mg/dL Creatinine (0.66-1.25) mg/dL Est GFR (CKD-EPI)AfAm (>60 ml/min/1.73 sqM) Est GFR (CKD-EPI)NonAf (>60 ml/min/1.73 sqM) Glucose (74-99) mg/dL Calcium (8.4-10.2) mg/dL Total Bilirubin (0.2-1.3) mg/dL AST (17-59) U/L ALT (21-72) U/L Alkaline Phosphatase (38-126) U/L Total Protein (6.3-8.2) g/dL Albumin (3.5-5.0) g/dL Amylase (30-110) U/L Lipase (23-300) U/L Urine Color Yellow Urine Appearance Cloudy (Clear) Urine pH 7.0 (5.0-8.0) Ur Specific Mcclure 1.017 (1.001-1.035) Urine Protein Negative (Negative) Urine Glucose (UA) 2+ H (Negative) Urine Ketones Negative (Negative) Urine Blood Negative (Negative) Urine Nitrite Negative (Negative) Urine Bilirubin Negative (Negative) Urine Urobilinogen <2.0 (<2.0) mg/dL Ur Leukocyte Esterase Negative (Negative) Urine WBC 2 (0-5) /hpf Amorphous Sediment Moderate H (None) /hpf Urine Bacteria Rare H (None) /hpf Hyaline Casts 3 H (0-2) /lpf Urine Mucus Occasional H (None) /hpf - Radiology Data Radiology results: image reviewed (Abdominal x-ray shows no acute process) Disposition Clinical Impression: Abdominal pain, Pancreatitis Disposition: ADMITTED IP TO THIS HOSP Is patient prescribed a controlled substance at d/c from ED?: No Referrals: Ramya Saul MD [Primary Care Provider] - 1-2 days Decision Time: 14:17
[2018-01-10 12:34] LABS: Basophils % (A) 0 %; Eosinophils # (A) 0.4 k/uL (0-0.7); Eosinophils % (A) 6 %; HCT 41.4 % (39.0-53.0); HGB 14.6 gm/dL (13.0-17.5); Lymphocytes # (A) 1.4 k/uL (1.0-4.8); Lymphocytes % (A) 21 %; MCH 31.4 pg (25.0-35.0); MCHC 35.1 g/dL (31.0-37.0); MCV 89.3 fL (80.0-100.0); Mean Platelet Volume 7.1; Monocytes # (A) 0.5 k/uL (0-1.0); Monocytes % (A) 7 %; Neutrophils # (A) 4.4 k/uL (1.3-7.7); Neutrophils % (A) 65 %; Platelet Count 218 k/uL (150-450); RBC 4.64 m/uL (4.30-5.90); RDW 13.4 % (11.5-15.5); WBC 6.8 k/uL (3.8-10.6)
[2018-01-10 12:50] LABS: ALT 42 U/L (21-72); AST 22 U/L (17-59); Albumin 4.1 g/dL (3.5-5.0); Alkaline Phosphatase 71 U/L (38-126); Amylase 173 U/L (30-110); Anion Gap 7 mmol/L; Blood Urea Nitrogen 11 mg/dL (9-20); Calcium 9.6 mg/dL (8.4-10.2); Carbon Dioxide 22 mmol/L (22-30); Chloride 112 mmol/L (98-107); Glucose 107 mg/dL (74-99); Lipase 1007 U/L (23-300); Sodium 141 mmol/L (137-145); Total Bilirubin 0.2 mg/dL (0.2-1.3); Total Protein 6.3 g/dL (6.3-8.2)
--- NOTE | 2018-01-10 12:56 | XR ---
EXAMINATION TYPE: XR KUB DATE OF EXAM: 01/10/2018 CLINICAL DATA: 47-year-old male with abdominal pain and diarrhea, PHH COMPARISON: None FINDINGS: Lung bases are clear. No evidence for free intraperitoneal air. No dilated small bowel or air-fluid levels. Scattered air and stool seen throughout the colon extendi ng distally into the rectum. Moderate stool burden. Phleboliths in the left side of the pelvis. IMPRESSION: 1. Moderate stool burden. 2.No evidence of bowel obstruction or free intraperitoneal air.
[2018-01-10 12:57] LABS: Partial Thromboplastin Time 22.5 sec (22.0-30.0); Prothrombin Time 9.8 sec (9.0-12.0)
[2018-01-10 13:01] LABS: Amorphous Sediment,Urine Moderate /hpf; Appearance,Urine Cloudy (Clear); Bacteria,Urine Rare /hpf; Bilirubin,Urine Negative (Negative); Blood,Urine Negative (Negative); Color,Urine Yellow; Glucose,Urine (UA) 2+ (Negative); Hyaline Casts,Urine 3 /lpf (0-2); Ketones,Urine Negative (Negative); Leukocyte Esterase,Urine Negative (Negative); Mucus,Urine Occasional /hpf; Nitrite,Urine Negative (Negative); Protein,Urine Negative (Negative); Specific Gravity,Urine 1.017 (1.001-1.035); Urobilinogen,Urine <2.0 mg/dL (<2.0); WBC,Urine 2 /hpf (0-5)
[2018-01-10] MEDS ORDERED: NALOXONE 0.4 MG/ML 1 ML VIAL IV PRN (14:18)
[2018-01-10] MEDS ORDERED: IOPAMIDOL-300 CONTRAST 30 ML VIAL (ORAL USE) PO PRN (14:19)
[2018-01-10 14:43] LABS: Glucose,Whole Blood 69 mg/dL (75-99)
[2018-01-10 15:42] LABS: Glucose,Whole Blood 71 mg/dL (75-99)
--- NOTE | 2018-01-10 15:53 | CT ---
EXAMINATION TYPE: CT abdomen pelvis w con DATE OF EXAM: 01/10/2018 COMPARISON: 07/22/2009 HISTORY: Upper Abdominal pain CT DLP: 634.7 mGycm Automated exposure control for dose reduction was used. TECHNIQUE: Helical acquisition of images was performed from the lung bases through the pelvis. CONTRAST: Performed without Oral Contrast and with IV Contrast, patient injected with 125 mL of Isovue 370. FINDINGS: LUNG BASES: There is minimal left basilar subsegmental dependent atelectasis. LIVER/GB: Hepatic parenchyma is diffusely hypoattenuated in comparison to that of the spleen, most co mmonly seen in hepatic steatosis. This finding limits evaluation for hepatic masses. No gross evidenc e of hepatic mass is seen. No intrahepatic biliary ductal dilatation. No cholelithiasis PANCREAS: No significant abnormality is seen. SPLEEN: There is an enlarging cystic lesion within the spleen from 2009 and currently measuring 5.4 c m and previously measuring approximately 3.6 cm. New calcifications are seen surrounding this cyst bhatti periorly. Overall this is favored to represent a benign etiology. Punctate calcified granulomas also seen in the splenic parenchyma. ADRENALS: No significant abnormality is seen. KIDNEYS: Kidneys enhance and excrete symmetrically other than a fluid attenuated left upper pole 1 cm cyst and 2 right lower pole right renal cysts. No hydronephrosis or nephrolithiasis. FREE AIR: No free air is visualized. REPRODUCTIVE ORGANS: Prostate gland is diffusely heterogenous. URINARY BLADDER: No significant abnormality is seen. ADENOPATHY: No greater than 1 cm short axis lymph nodes are seen within the abdomen or pelvis. OSSEOUS STRUCTURES: Mild multilevel degenerative changes are seen of the spine.. BOWEL: Small bowel feces sign is seen within the terminal ileum, which appears slightly dilated. Thi s may relate to an incompetent ileocecal valve and reflux. There is slight mucosal hyperemia of the s mall bowel and focal small bowel wall thickening of multiple bowel loops in the left upper quadrant. No evidence of dilation to suggest obstruction. Moderate amount retained colonic stool is noted. Ther e is lipomatous hypertrophy of the ileocecal valve. IMPRESSION: FINDINGS MOST SUGGESTIVE OF INFLAMMATORY OR INFECTIOUS ENTERITIS WITH MULTIPLE LOOPS OF SMALL BOWEL D EMONSTRATING BOWEL WALL THICKENING IN THE LEFT UPPER QUADRANT. FINDINGS ALSO SUGGEST MILD ILEUS AND P OTENTIAL INCOMPETENT ILEOCECAL VALVE.
[2018-01-10] MEDS: PANTOPRAZOLE 40 MG/10 ML VIAL IV SCH (17:06)
[2018-01-10] MEDS: SODIUM CHLORIDE 0.9% 1,000 ML IV SCH (17:07)
[2018-01-10 20:13] LABS: Glucose,Whole Blood 76 mg/dL (75-99)
[2018-01-10] MEDS ORDERED: ALBUTEROL INHALER 60 PUFF/8 GM INHALER INHALATION PRN ×2 (20:56)
[2018-01-10] MEDS ORDERED: ALBUTEROL NEBULIZED 2.5 MG/3 ML INHALATION PRN (20:56)
[2018-01-10] MEDS ORDERED: ERGOCALCIFEROL 50,000 UNIT CAP PO SCH (21:00)
[2018-01-10 21:06] VITALS: RESP 16
[2018-01-10] MEDS: MORPHINE SULFATE 2 MG/ML SYRINGE IVP PRN (21:12)
[2018-01-10] MEDS: GABAPENTIN 400 MG CAP PO SCH (21:48)
[2018-01-10] MEDS: DIPYRIDAMOLE-ASPIRIN 200-25 MG 1 EACH CPMP.12HR PO SCH (21:48)
[2018-01-10] MEDS: OXcarbazepine 300 MG TAB PO SCH (21:48)
[2018-01-11 00:16] VITALS: BMI 29.7
[2018-01-11] MEDS: SODIUM CHLORIDE 0.9% 1,000 ML IV SCH ×2 (00:58→12:08)
[2018-01-11] MEDS: MORPHINE SULFATE 2 MG/ML SYRINGE IVP PRN ×3 (00:59→11:41)
[2018-01-11 05:34] VITALS: BP 113/60; PULSE 60; TEMP 98
[2018-01-11 06:49] LABS: Glucose,Whole Blood 76 mg/dL (75-99)
[2018-01-11] MEDS ORDERED: metFORMIN 500 MG TAB PO SCH (07:30)
[2018-01-11] MEDS: INSULIN ASPART 100 UNIT/ML 1 ML 10 ML VIAL SQ SCH ×2 (07:37→13:01)
--- NOTE | 2018-01-11 08:10 | US ---
EXAMINATION TYPE: US gallbladder DATE OF EXAM: 01/11/2018 COMPARISON: CT abdomen and pelvis from yesterday. CLINICAL HISTORY: upper abd pain. EXAM MEASUREMENTS: Liver Length: 12.5 cm Gallbladder Wall: 0.2 cm CBD: 0.5 cm Right Kidney: 11.6 x 4.4 x 4.6 cm Pancreas: mostly obscured by bowel gas, portions visualized wnl Liver: hypoechoic area in left lobe measuring 3.0 x 1.1 x 2.9cm, probable focal fatty sparing, also seen adjacent to gallbladder Gallbladder: wnl Evidence for sonographic Durán's sign: no CBD: wnl Right Kidney: two cysts noted largest measuring 1.3 x 1.5 x 1.1cm Visualized portion of pancreas is unremarkable. Pancreas is noted to have appear within normal limits on recent CT. Portions are obscured by overlying bowel gas. Visualized liver slightly heterogeneousl y hyperechoic with central hypoechoic area likely reflecting diffuse fatty infiltration with focal fa tty sparing. No shadowing mobile gallstones are seen in gallbladder. A few small simple appearing cys ts in the right kidney are marked by technologist. IMPRESSION: No shadowing mobile gallstones or ultrasound evidence for acute cholecystitis.
[2018-01-11 08:59] LABS: Basophils % (A) 0 %; Eosinophils # (A) 0.4 k/uL (0-0.7); Eosinophils % (A) 8 %; HCT 41.8 % (39.0-53.0); HGB 14.3 gm/dL (13.0-17.5); Lymphocytes # (A) 1.2 k/uL (1.0-4.8); Lymphocytes % (A) 24 %; MCH 31.2 pg (25.0-35.0); MCHC 34.3 g/dL (31.0-37.0); MCV 91.1 fL (80.0-100.0); Mean Platelet Volume 6.8; Monocytes # (A) 0.3 k/uL (0-1.0); Monocytes % (A) 5 %; Neutrophils % (A) 61 %; Platelet Count 205 k/uL (150-450); RBC 4.59 m/uL (4.30-5.90); RDW 13.3 % (11.5-15.5); WBC 4.9 k/uL (3.8-10.6)
[2018-01-11] MEDS ORDERED: TAMSULOSIN 0.4 MG CAP.ER.24H PO SCH (09:00)
[2018-01-11] MEDS ORDERED: MELOXICAM 7.5 MG TAB PO SCH (09:00)
[2018-01-11] MEDS ORDERED: VENLAFAXINE HCL ER 150 MG CAP PO SCH (09:00)
[2018-01-11] MEDS ORDERED: LORATADINE 10 MG TAB PO SCH (09:00)
[2018-01-11] MEDS ORDERED: ATORVASTATIN 20 MG TAB PO SCH (09:00)
[2018-01-11 09:21] LABS: ALT 39 U/L (21-72); AST 22 U/L (17-59); Albumin 3.6 g/dL (3.5-5.0); Alkaline Phosphatase 66 U/L (38-126); Amylase 49 U/L (30-110); Anion Gap 4 mmol/L; Blood Urea Nitrogen 9 mg/dL (9-20); Calcium 8.9 mg/dL (8.4-10.2); Carbon Dioxide 26 mmol/L (22-30); Chloride 110 mmol/L (98-107); Cholesterol 118 mg/dL (<200); Glucose 142 mg/dL (74-99); HDL Cholesterol 45 mg/dL (40-60); LDL Cholesterol,Calculated 49 mg/dL (0-99); Lipase 70 U/L (23-300); Potassium 3.9 mmol/L (3.5-5.1); Sodium 140 mmol/L (137-145); Total Bilirubin 0.4 mg/dL (0.2-1.3); Total Protein 5.6 g/dL (6.3-8.2); Triglycerides 119 mg/dL (<150)
[2018-01-11] MEDS: DIPYRIDAMOLE-ASPIRIN 200-25 MG 1 EACH CPMP.12HR PO SCH (09:22)
[2018-01-11] MEDS: OXcarbazepine 300 MG TAB PO SCH (09:24)
[2018-01-11] MEDS: GABAPENTIN 400 MG CAP PO SCH ×2 (09:24→13:11)
[2018-01-11] MEDS: PANTOPRAZOLE 40 MG/10 ML VIAL IV SCH (09:30)
--- NOTE | 2018-01-11 10:43 | P.DS ---
Providers Date of admission: 01/10/18 14:18 Attending physician: Magdalena Gomez Primary care physician: Ramya [facility] Course: Patient was admitted admitted for left-sided severe abdominal pain which improved now. Patient has diarrhea CAT scan of the abdomen is consistent with enteritis and symptomology is consistent with a viral gastroenteritis. Patient the diarrhea resolved patient is symptomatically better will advance her diet if he is able to tolerate patient will be discharged today. Patient is wheezing on exam probably has a disease of COPD. Will start him on inhalational steroids patient has a rescue inhaler and albuterol at home which she will continue patient is willing to quit smoking. I do not believe patient has pancreatitis as his symptomatology is not consistent with that although there is elevated lipase and amylase which had minimally elevated. PHYSICAL EXAMINATION: GENERAL: The patient is alert and oriented x3, not in any acute distress. Well developed, well nourished. HEENT: Pupils are round and equally reacting to light. EOMI. No scleral icterus. No conjunctival pallor. Normocephalic, atraumatic. No pharyngeal erythema. No thyromegaly. CARDIOVASCULAR: S1 and S2 present. No murmurs, rubs, or gallops. PULMONARY: Chest is clear to auscultation, no wheezing or crackles. ABDOMEN: Soft, nontender, nondistended, normoactive bowel sounds. No palpable organomegaly. MUSCULOSKELETAL: No joint swelling or deformity. EXTREMITIES: No cyanosis, clubbing, or pedal edema. NEUROLOGICAL: Gross neurological examination did not reveal any focal deficits. SKIN: No rashes. -Vital gastro-enteritis -Early stages of COPD with minimal exacerbation. The rest of the medical problems please refer to the H&P that was dictated by Dr. Gomez from yesterday Plan - Discharge Summary New Discharge Prescriptions: New Budesonide-Formot 160-4.5 Mcg [Symbicort 160-4.5 Mcg Inhaler] 2 puff INHALATION BID #1 inhaler No Action metFORMIN HCL [metFORMIN HCL ER] 1,000 mg PO AC-SUPPER Gabapentin [Neurontin] 800 mg PO QID Tamsulosin HCl [Flomax] 0.4 mg PO DAILY Ergocalciferol [Vitamin D2 (DRISDOL)] 50,000 unit PO MO OXcarbazepine [Trileptal] 300 mg PO BID Venlafaxine HCl ER [Effexor XR] 300 mg PO DAILY fluPHENAZine DECANOATE [Prolixin Decanoate] 50 mg IM [id number] Omeprazole [PriLOSEC] 20 mg PO DAILY Meloxicam 15 mg PO DAILY Loratadine [Claritin] 10 mg PO DAILY Albuterol Sulfate [Proair Hfa] 2 puff INHALATION RT-Q6H PRN PRN Reason: Shortness Of Breath Simvastatin 40 mg PO DAILY Dipyridamole-Aspirin 200-25 mg [Aggrenox] 1 cap PO BID Albuterol Nebulized [Ventolin Nebulized] 2.5 mg INHALATION RT-Q6H PRN PRN Reason: Shortness Of Breath Albuterol Inhaler [Ventolin Hfa Inhaler] 1 - 2 puff INHALATION Q4HR PRN #1 inhaler PRN Reason: Shortness Of Breath Discharge Medication List metFORMIN HCL [metFORMIN HCL ER] 1,000 mg PO AC-SUPPER 08/15/14 [History] Gabapentin [Neurontin] 800 mg PO QID 07/03/15 [History] Tamsulosin HCl [Flomax] 0.4 mg PO DAILY 07/03/15 [History] Ergocalciferol [Vitamin D2 (DRISDOL)] 50,000 unit PO MO 01/13/16 [History] OXcarbazepine [Trileptal] 300 mg PO BID 02/19/17 [History] Venlafaxine HCl ER [Effexor XR] 300 mg PO DAILY 02/19/17 [History] fluPHENAZine DECANOATE [Prolixin Decanoate] 50 mg IM [id number] 11/30/17 [History] Albuterol Inhaler [Ventolin Hfa Inhaler] 1 - 2 puff INHALATION Q4HR PRN #1 inhaler 12/20/17 [Rx] Albuterol Nebulized [Ventolin Nebulized] 2.5 mg INHALATION RT-Q6H PRN 12/20/17 [ History] Albuterol Sulfate [Proair Hfa] 2 puff INHALATION RT-Q6H PRN 12/20/17 [History] Dipyridamole-Aspirin 200-25 mg [Aggrenox] 1 cap PO BID 12/20/17 [History] Loratadine [Claritin] 10 mg PO DAILY 12/20/17 [History] Meloxicam 15 mg PO DAILY 12/20/17 [History] Omeprazole [PriLOSEC] 20 mg PO DAILY 12/20/17 [History] Simvastatin 40 mg PO DAILY 12/20/17 [History] Budesonide-Formot 160-4.5 Mcg [Symbicort 160-4.5 Mcg Inhaler] 2 puff INHALATION BID #1 inhaler 01/11/18 [Rx] Follow up Appointment(s)/Referral(s): Ramya Saul MD [Primary Care Provider] - 3 Days Discharge Disposition: HOME SELF-CARE
[2018-01-11 11:17] LABS: Glucose,Whole Blood 109 mg/dL (75-99)
[2018-01-11 20:15] LABS: Hemoglobin A1C 5.8 % (4.0-6.0)
[2018-01-24] MEDS ORDERED: fluPHENAZine DECANOATE 25 MG/ML 5ML MDV IM SCH (09:00)
== END 2018-01-11 13:40 | disposition home or self-care (01) ==
LOC: EC 11:16 → 4MS4W 14:18 → 5MS5E 19:20
PROVIDERS: ADMIT Hospitalist; ATTEND Hospitalist
DX: A08.4 Viral intestinal infection, unspecified (principal); J44.9 Chronic obstructive pulmonary disease, unspecified; E11.9 Type 2 diabetes mellitus without complications; G40.909 Epilepsy, unspecified, not intractable, without status epilepticus; I10 Essential (primary) hypertension; K21.9 Gastro-esophageal reflux disease without esophagitis; E78.5 Hyperlipidemia, unspecified; M19.90 Unspecified osteoarthritis, unspecified site; F20.9 Schizophrenia, unspecified; F31.9 Bipolar disorder, unspecified; H91.90 Unspecified hearing loss, unspecified ear; F41.9 Anxiety disorder, unspecified; F17.200 Nicotine dependence, unspecified, uncomplicated; K76.9 Liver disease, unspecified; G47.30 Sleep apnea, unspecified; Z99.89 Dependence on other enabling machines and devices; Z79.84 Long term (current) use of oral hypoglycemic drugs; Z79.1 Long term (current) use of non-steroidal anti-inflammatories (NSAID); Z79.899 Other long term (current) drug therapy; Z88.1 Allergy status to other antibiotic agents; Z91.040 Latex allergy status; Z88.2 Allergy status to sulfonamides; Z88.8 Allergy status to other drugs, medicaments and biological substances; Z91.048 Other nonmedicinal substance allergy status; Z86.73 Personal history of transient ischemic attack (TIA), and cerebral infarction without residual deficits; Z87.01 Personal history of pneumonia (recurrent); Z83.3 Family history of diabetes mellitus; Z80.3 Family history of malignant neoplasm of breast; Z80.0 Family history of malignant neoplasm of digestive organs; Z80.1 Family history of malignant neoplasm of trachea, bronchus and lung
CPT/HCPCS: 99285 ×2; 96374 ×2; 96375 ×3; 96361 ×3; 96376; 36415; 80061; 80053 ×2; 82150 ×2; 83690 ×2; 85025 ×2; 85610; 85730; 81001; 83036; 74018; 76705; 74177; G0378 ×2; J2765; J2270 ×2; C9113 ×2; Q9967

== ENCOUNTER 2018-03-02 15:06 | Emergency (ER) | payer MEDICARE, OTHER ==
[2018-03-02 15:40] VITALS: BP 115/87; PULSE 79; RESP 16; TEMP 98.4
--- NOTE | 2018-03-02 16:20 | ED ---
General Adult HPI - General Chief complaint: Extremity Injury, Upper Stated complaint: rt shoulder pain Source: patient, RN notes reviewed Mode of arrival: ambulatory Limitations: no limitations - History of Present Illness Initial comments: Patient's a 47-year-old male presenting to the emergency room today with a chief complaint of an injury to the right shoulder. He does admit that 5 days ago he tripped falling forward onto an outstretched right arm. He does admit that he's had pain tenderness with movements to the right shoulder since. Patient denies any head injury lost consciousness. Patient states the pain is worse with certain movements. He denies any other complaints. Patient denies any recent fever, chills, shortness of breath, chest pain, back pain, abdominal pain, nausea or vomiting, numbness or tingling, headaches or visual changes, or any other complaints. - Related Data Home Medications Medication Instructions Recorded Confirmed Gabapentin [Neurontin] 800 mg PO QID 07/03/15 03/02/18 Tamsulosin HCl [Flomax] 0.4 mg PO DAILY 07/03/15 03/02/18 OXcarbazepine [Trileptal] 300 mg PO BID 02/19/17 03/02/18 Venlafaxine HCl ER [Effexor XR] 300 mg PO DAILY 02/19/17 03/02/18 fluPHENAZine DECANOATE [Prolixin 50 mg IM [id number] 11/30/17 03/02/18 Decanoate] Dipyridamole-Aspirin 200-25 mg 1 cap PO BID 12/20/17 03/02/18 [Aggrenox] Omeprazole [PriLOSEC] 20 mg PO DAILY 12/20/17 03/02/18 Simvastatin 40 mg PO DAILY 12/20/17 03/02/18 Acetaminophen [Tylenol] 1,000 mg PO Q4-6H PRN 03/02/18 03/02/18 Albuterol Inhaler [Ventolin Hfa 1 - 2 puff INHALATION PRN 03/02/18 Inhaler] Budesonide-Formot 160-4.5 Mcg 2 puff INHALATION RT-BID 03/02/18 03/02/18 [Symbicort 160-4.5 Mcg Inhaler] metFORMIN HCL [Glucophage] 500 mg PO DAILY 03/02/18 03/02/18 Previous Rx's Medication Instructions Recorded guaiFENesin 400 mg PO Q4-6H #30 tablet 03/02/18 Allergies Allergy/AdvReac Type Severity Reaction Status Date / Time ciprofloxacin Allergy Unknown Nausea Verified 03/02/18 15:52 dicyclomine HCl [From Bentyl] Allergy Unknown Dyspnea Verified 03/02/18 15:52 latex Allergy Unknown Rash/Hives Verified 03/02/18 15:52 Macrolide Antibiotics Allergy Unknown Nausea Verified 03/02/18 15:52 diphenhydramine HCl Allergy Anaphylaxis Verified 03/02/18 15:52 [From Benadryl] adhesive AdvReac Unknown Itching Verified 03/02/18 15:52 sulfamethoxazole AdvReac Unknown Unknown Verified 03/02/18 15:52 [From Bactrim] trimethoprim [From Bactrim] AdvReac Unknown Unknown Verified 03/02/18 15:52 Review of Systems ROS Statement: Those systems with pertinent positive or pertinent negative responses have been documented in the HPI. ROS Other: All systems not noted in ROS Statement are negative. Past Medical History Past Medical History: Asthma, Chest Pain / Angina, COPD, CVA/TIA, Diabetes Mellitus, GERD/Reflux, Hearing Disorder / Deafness, Hyperlipidemia, Hypertension , Liver Disease, Osteoarthritis (OA), Pneumonia, Seizure Disorder, Sleep Apnea/ CPAP/BIPAP Additional Past Medical History / Comment(s): Cyst on kidney, uses cpap (22) History of Any Multi-Drug Resistant Organisms: None Reported Past Surgical History: Heart Catheterization, Orthopedic Surgery Additional Past Surgical History / Comment(s): Cysts removed, left thumb surgery Past Anesthesia/Blood Transfusion Reactions: Motion Sickness, Postoperative Nausea & Vomiting (PONV) Past Psychological History: Anxiety, Bipolar, Depression, Schizophrenia Smoking Status: Current every day smoker Past Alcohol Use History: None Reported, Rare Past Drug Use History: None Reported - Past Family History Brother(s) Family Medical History: Diabetes Mellitus Additional Family Medical History / Comment(s): Patient has 2 brothers. One from complications from diabetes. The second is alive with diabetes. Sister(s) Family Medical History: Cancer Additional Family Medical History / Comment(s): Patient has one sister with breast cancer. Patient does not have any children. Father Family Medical History: Cancer Additional Family Medical History / Comment(s): Father in his 40s or 50s from colon cancer. Mother Family Medical History: Cancer Additional Family Medical History / Comment(s): Mother at age 68 from lung cancer. General Exam - General Exam Comments Initial Comments: General: The patient is awake and alert, in no distress, and does not appear acutely ill. Eye: Pupils are equal, round and reactive to light. Extra-ocular movements are intact. No nystagmus. There is normal conjunctiva bilaterally. No signs of icterus. Ears, nose, mouth and throat: There are moist mucous membranes and no oral lesions. Neck: The neck is supple, there is no tenderness or JVD. Cardiovascular: There is a regular rate and rhythm. No murmur, rub or gallop is appreciated. Respiratory: Lungs are clear to auscultation, respirations are non-labored, breath sounds are equal. No wheezes, stridor, rales, or rhonchi. Musculoskeletal: Patient has normal appearance of the right shoulder no obvious deformity. He shows good range of motion. Patient mild tenderness to the superior aspect. No tenderness in cervical, thoracic or lumbar spine. Sensation intact. Strength 5/5. Pulses equal bilaterally 2+. Neurological: A&O x 3. CN II-XII intact, There are no obvious motor or sensory deficits. Coordination appears grossly intact. Speech is normal. Skin: Skin is warm and dry and no rashes or lesions are noted. Psychiatric: Cooperative, appropriate mood & affect, normal judgment. Limitations: no limitations Course Vital Signs 03/02/18 15:37 Temperature 98.4 F Pulse Rate 79 Respiratory 16 Rate Blood Pressure 115/87 O2 Sat by Pulse 99 Oximetry Medical Decision Making - Medical Decision Making Patient's x-rays reviewed by myself showing no acute fracture dislocation. Results were discussed with the patient. Patient is advised follow-up with orthopedics over the next week if symptoms persist. Advised used Tylenol/ ibuprofen for pain as needed. Return here to the emergency room for any other concerns. Disposition Clinical Impression: Sprain of right shoulder Disposition: HOME SELF-CARE Condition: Good Instructions: Shoulder Sprain (ED) Additional Instructions: Please follow-up with orthopedic doctor over the next week if symptoms persist for further evaluation and repeat x-rays. Please return to emergency room if any symptoms increase worsen or for any other concerns. Prescriptions: guaiFENesin 400 mg PO Q4-6H #30 tablet Is patient prescribed a controlled substance at d/c from ED?: No Referrals: Sunilkumar,Mini, MD [Primary Care Provider] - 1-2 days Fermin Hawley MD [STAFF PHYSICIAN] - 1-2 days Time of Disposition: 16:19
--- NOTE | 2018-03-02 17:15 | XR ---
EXAMINATION TYPE: XR shoulder complete RT DATE OF EXAM: 03/02/2018 COMPARISON: NONE HISTORY: Pain TECHNIQUE: Shoulder examined in 3 views FINDINGS: The humeral head articulates with the glenoid. The acromio-clavicular junction is normal. No acute fractures or dislocations are evident. A follow up study can be performed 7-10 days from acute trauma for continued pain. IMPRESSION: 1. Normal Shoulder
== END 2018-03-02 16:35 | disposition home or self-care (01) ==
LOC: EC 15:06
DX: S43.401A Unspecified sprain of right shoulder joint, initial encounter (principal); J44.9 Chronic obstructive pulmonary disease, unspecified; I20.9 Angina pectoris, unspecified; E11.9 Type 2 diabetes mellitus without complications; K21.9 Gastro-esophageal reflux disease without esophagitis; H91.90 Unspecified hearing loss, unspecified ear; E78.5 Hyperlipidemia, unspecified; I10 Essential (primary) hypertension; G40.909 Epilepsy, unspecified, not intractable, without status epilepticus; G47.30 Sleep apnea, unspecified; F31.9 Bipolar disorder, unspecified; F20.9 Schizophrenia, unspecified; F41.9 Anxiety disorder, unspecified; F17.200 Nicotine dependence, unspecified, uncomplicated; Z98.890 Other specified postprocedural states; Z99.89 Dependence on other enabling machines and devices; Z86.73 Personal history of transient ischemic attack (TIA), and cerebral infarction without residual deficits; Z79.51 Long term (current) use of inhaled steroids; Z79.84 Long term (current) use of oral hypoglycemic drugs; Z79.899 Other long term (current) drug therapy; Z88.1 Allergy status to other antibiotic agents; Z88.2 Allergy status to sulfonamides; Z88.8 Allergy status to other drugs, medicaments and biological substances; Z91.040 Latex allergy status; Z91.048 Other nonmedicinal substance allergy status; W01.0XXA Fall on same level from slipping, tripping and stumbling without subsequent striking against object, initial encounter; Y92.009 Unspecified place in unspecified non-institutional (private) residence as the place of occurrence of the external cause
CPT/HCPCS: 99283

== ENCOUNTER 2018-04-04 09:14 | Emergency (ER) | payer MEDICARE, OTHER ==
[2018-04-04 09:20] VITALS: BP 132/83; PULSE 73; RESP 18; TEMP 98
--- NOTE | 2018-04-04 09:51 | ED ---
General Adult HPI - General Chief complaint: Extremity Injury, Upper Stated complaint: neck pain Time Seen by Provider: 04/04/18 09:39 Source: patient, EMS, RN notes reviewed, old records reviewed Mode of arrival: EMS Limitations: no limitations - History of Present Illness Initial comments: Patient 48-year-old male presented to the emergency room today with a chief complaint of left shoulder pain and neck pain. He does admit that it's worse with movements of the left shoulder with extension and abduction. Patient states worse with movement of the neck to the left. He denies any injury or trauma states it started a week ago. States tried Tylenol with little relief. Patient denies any recent fever, chills, shortness of breath, back pain, abdominal pain, nausea or vomiting, numbness or tingling, headaches or visual changes, or any other complaints. - Related Data Home Medications Medication Instructions Recorded Confirmed Gabapentin [Neurontin] 800 mg PO TID 07/03/15 04/04/18 Tamsulosin HCl [Flomax] 0.4 mg PO DAILY 07/03/15 04/04/18 OXcarbazepine [Trileptal] 300 mg PO BID 02/19/17 04/04/18 Venlafaxine HCl ER [Effexor XR] 150 mg PO DAILY 02/19/17 04/04/18 Dipyridamole-Aspirin 200-25 mg 1 cap PO BID 12/20/17 04/04/18 [Aggrenox] Acetaminophen [Tylenol] 1,000 mg PO Q4-6H PRN 03/02/18 04/04/18 Albuterol Inhaler [Ventolin Hfa 2 puff INHALATION RT-Q4H PRN 03/02/18 04/04/18 Inhaler] metFORMIN HCL [Glucophage] 1,000 mg PO W/SUPPER 03/02/18 04/04/18 Albuterol Nebulized [Ventolin 2.5 mg INHALATION RT-TID 04/04/18 04/04/18 Nebulized] Calcium Carbonate [Calcium] 600 mg PO BID 04/04/18 04/04/18 Ergocalciferol (Vitamin D2) 50,000 unit PO Q7D 04/04/18 04/04/18 [Vitamin D2] Fenofibrate Nanocrystallized 48 mg PO DAILY 04/04/18 04/04/18 [Fenofibrate] Fluticasone/Salmeterol [Advair 1 puff INHALATION RT-BID 04/04/18 04/04/18 250-50 Diskus] Loratadine [Claritin] 10 mg PO DAILY 04/04/18 04/04/18 Meloxicam [Mobic] 15 mg PO DAILY 04/04/18 04/04/18 Montelukast [Singulair] 10 mg PO DAILY 04/04/18 04/04/18 Omeprazole 40 mg PO DAILY 04/04/18 04/04/18 Ondansetron [Zofran ODT] 8 mg PO DAILY PRN 04/04/18 04/04/18 Simvastatin [Zocor] 80 mg PO HS 04/04/18 04/04/18 Triamcinolone Acetonide 1 applic TOPICAL BID 04/04/18 04/04/18 [Triamcinolone Acetonide 0.025%] Previous Rx's Medication Instructions Recorded Cyclobenzaprine [Flexeril] 10 mg PO TID #20 tab 04/04/18 Allergies Allergy/AdvReac Type Severity Reaction Status Date / Time ciprofloxacin Allergy Unknown Nausea Verified 03/02/18 15:52 dicyclomine HCl [From Bentyl] Allergy Unknown Dyspnea Verified 03/02/18 15:52 latex Allergy Unknown Rash/Hives Verified 03/02/18 15:52 Macrolide Antibiotics Allergy Unknown Nausea Verified 03/02/18 15:52 diphenhydramine HCl Allergy Anaphylaxis Verified 03/02/18 15:52 [From Benadryl] adhesive AdvReac Unknown Itching Verified 03/02/18 15:52 sulfamethoxazole AdvReac Unknown Unknown Verified 03/02/18 15:52 [From Bactrim] trimethoprim [From Bactrim] AdvReac Unknown Unknown Verified 03/02/18 15:52 Review of Systems ROS Statement: Those systems with pertinent positive or pertinent negative responses have been documented in the HPI. ROS Other: All systems not noted in ROS Statement are negative. Past Medical History Past Medical History: Asthma, Chest Pain / Angina, COPD, CVA/TIA, Diabetes Mellitus, GERD/Reflux, Hearing Disorder / Deafness, Hyperlipidemia, Hypertension , Liver Disease, Osteoarthritis (OA), Pneumonia, Seizure Disorder, Sleep Apnea/ CPAP/BIPAP Additional Past Medical History / Comment(s): Cyst on kidney, uses cpap (22) History of Any Multi-Drug Resistant Organisms: None Reported Past Surgical History: Heart Catheterization, Orthopedic Surgery Additional Past Surgical History / Comment(s): Cysts removed, left thumb surgery Past Anesthesia/Blood Transfusion Reactions: Motion Sickness, Postoperative Nausea & Vomiting (PONV) Past Psychological History: Anxiety, Bipolar, Depression, Schizophrenia Smoking Status: Current every day smoker Past Alcohol Use History: None Reported, Rare Past Drug Use History: None Reported - Past Family History Brother(s) Family Medical History: Diabetes Mellitus Additional Family Medical History / Comment(s): Patient has 2 brothers. One from complications from diabetes. The second is alive with diabetes. Sister(s) Family Medical History: Cancer Additional Family Medical History / Comment(s): Patient has one sister with breast cancer. Patient does not have any children. Father Family Medical History: Cancer Additional Family Medical History / Comment(s): Father in his 40s or 50s from colon cancer. Mother Family Medical History: Cancer Additional Family Medical History / Comment(s): Mother at age 68 from lung cancer. General Exam - General Exam Comments Initial Comments: General: The patient is awake and alert, in no distress, and does not appear acutely ill. Eye: Pupils are equal, round and reactive to light. Extra-ocular movements are intact. No nystagmus. There is normal conjunctiva bilaterally. No signs of icterus. Ears, nose, mouth and throat: There are moist mucous membranes and no oral lesions. Neck: The neck is supple, there is no tenderness or JVD. Cardiovascular: There is a regular rate and rhythm. No murmur, rub or gallop is appreciated. Respiratory: Lungs are clear to auscultation, respirations are non-labored, breath sounds are equal. No wheezes, stridor, rales, or rhonchi. Musculoskeletal: Patient has normal appearance of the left shoulder and cervical spine with no step-offs no deformities. Shows good range of motion slightly limited due to pain with rotation to the left of the cervical spine. There is no tenderness midline. There does have tenderness over the left trapezius area. Sensation intact. Strength 5/5. Pulses equal bilaterally 2+. Neurological: A&O x 3. CN II-XII intact, There are no obvious motor or sensory deficits. Coordination appears grossly intact. Speech is normal. Skin: Skin is warm and dry and no rashes or lesions are noted. Psychiatric: Cooperative, appropriate mood & affect, normal judgment. Limitations: no limitations Course Vital Signs 04/04/18 09:18 Temperature 98.0 F Pulse Rate 73 Respiratory 18 Rate Blood Pressure 132/83 O2 Sat by Pulse 98 Oximetry EKG Findings - EKG Comments: EKG Findings:: EKG performed at 0953: Shows sinus bradycardia at 58 beats per minute. ID interval 140. QRS 102. QT/QTc 428/420. Initial incomplete right bundle branch block. Compared appears EKG on 12/20/2017 showing no acute changes. Medical Decision Making - Medical Decision Making 48-year-old male presenting for left shoulder and neck pain over the last week. Case discussed in detail with attending physician Dr. Saucedo. Patient reexamined at this time shows no signs of distress resting comfortably. Patient' s pain is reproduced with rotation of the neck to the left. There is tenderness of the trapezius and left side of the neck. No bony tenderness of the cervical spine. Patient will be treated for torticollis with muscle relaxer. He is advised to use warm compresses and heat to the area. Advised to follow-up family doctor return for any other concerns. Disposition Clinical Impression: Torticollis Disposition: HOME SELF-CARE Condition: Good Instructions: Spasmodic Torticollis (ED) Additional Instructions: Please use medication as discussed. Please follow-up with family doctor in the next 2 days of symptoms have not improved. Please return to emergency room if the symptoms increase or worsen or for any other concerns. Prescriptions: Cyclobenzaprine [Flexeril] 10 mg PO TID #20 tab Is patient prescribed a controlled substance at d/c from ED?: No Referrals: Ramya Saul MD [Primary Care Provider] - 1-2 days Time of Disposition: 10:10
== END 2018-04-04 10:36 | disposition home or self-care (01) ==
LOC: EC 09:14
DX: M43.6 Torticollis (principal); J44.9 Chronic obstructive pulmonary disease, unspecified; E78.5 Hyperlipidemia, unspecified; I10 Essential (primary) hypertension; E11.9 Type 2 diabetes mellitus without complications; K21.9 Gastro-esophageal reflux disease without esophagitis; M19.90 Unspecified osteoarthritis, unspecified site; H91.90 Unspecified hearing loss, unspecified ear; G47.30 Sleep apnea, unspecified; G40.909 Epilepsy, unspecified, not intractable, without status epilepticus; F31.9 Bipolar disorder, unspecified; F41.9 Anxiety disorder, unspecified; F17.200 Nicotine dependence, unspecified, uncomplicated; Z88.1 Allergy status to other antibiotic agents; Z88.2 Allergy status to sulfonamides; Z88.8 Allergy status to other drugs, medicaments and biological substances; Z91.040 Latex allergy status; Z91.048 Other nonmedicinal substance allergy status; Z79.02 Long term (current) use of antithrombotics/antiplatelets; Z79.1 Long term (current) use of non-steroidal anti-inflammatories (NSAID); Z79.51 Long term (current) use of inhaled steroids; Z79.52 Long term (current) use of systemic steroids; Z79.82 Long term (current) use of aspirin; Z79.84 Long term (current) use of oral hypoglycemic drugs; Z79.899 Other long term (current) drug therapy; Z87.01 Personal history of pneumonia (recurrent); Z99.89 Dependence on other enabling machines and devices; Z86.73 Personal history of transient ischemic attack (TIA), and cerebral infarction without residual deficits
CPT/HCPCS: 93005; 99284

== ENCOUNTER 2018-04-08 17:58 | Emergency (ER) | payer MEDICARE, OTHER ==
[2018-04-08 18:08] VITALS: RESP 18
[2018-04-08] MEDS ORDERED: IBUPROFEN 600 MG TAB PO STA (19:05)
[2018-04-08] MEDS ORDERED: ORPHENADRINE 30 MG/ML 2 ML VIAL IM STA (19:06)
[2018-04-08] MEDS ORDERED: KETOROLAC 60 MG/2 ML VIAL IM STA (19:06)
--- NOTE | 2018-04-08 19:36 | ED ---
Neck Injury/Pain HPI - General Chief Complaint: Neck Pain/Injury Stated Complaint: shoulder pain Time Seen by Provider: 04/08/18 18:54 Source: RN notes reviewed, old records reviewed Mode of arrival: EMS Limitations: no limitations - History of Present Illness Initial Comments: Patient is a 48-year-old male presents emergency department today with chief complaint of neck pain and left arm pain into his chest. Patient states that he was treated for similar pain 2 days ago. He was discharged with Flexeril. States it wasn't helping. He also tried smoke marijuana for pain relief with little relief of his symptoms. Patient states that pain is worse with movement of his neck and chest wall. He reports he's had some minor coughing as well. Is a smoker and history of diabetes. - Related Data Home Medications Medication Instructions Recorded Confirmed Gabapentin [Neurontin] 800 mg PO TID 07/03/15 04/08/18 Tamsulosin HCl [Flomax] 0.4 mg PO DAILY 07/03/15 04/08/18 OXcarbazepine [Trileptal] 300 mg PO BID 02/19/17 04/08/18 Venlafaxine HCl ER [Effexor XR] 300 mg PO DAILY 02/19/17 04/08/18 Dipyridamole-Aspirin 200-25 mg 1 cap PO BID 12/20/17 04/08/18 [Aggrenox] Acetaminophen [Tylenol] 1,000 mg PO Q4-6H PRN 03/02/18 04/08/18 Albuterol Inhaler [Ventolin Hfa 2 puff INHALATION RT-Q4H PRN 03/02/18 04/08/18 Inhaler] metFORMIN HCL [Glucophage] 1,000 mg PO W/SUPPER 03/02/18 04/08/18 Albuterol Nebulized [Ventolin 2.5 mg INHALATION RT-QID PRN 04/04/18 04/08/18 Nebulized] Calcium Carbonate [Calcium] 600 mg PO BID 04/04/18 04/08/18 Ergocalciferol (Vitamin D2) 50,000 unit PO Q7D 04/04/18 04/08/18 [Vitamin D2] Fenofibrate Nanocrystallized 48 mg PO DAILY 04/04/18 04/08/18 [Fenofibrate] Fluticasone/Salmeterol [Advair 1 puff INHALATION RT-BID 04/04/18 04/08/18 250-50 Diskus] Loratadine [Claritin] 10 mg PO DAILY 04/04/18 04/08/18 Meloxicam [Mobic] 15 mg PO DAILY 04/04/18 04/08/18 Montelukast [Singulair] 10 mg PO DAILY 04/04/18 04/08/18 Omeprazole 40 mg PO DAILY 04/04/18 04/08/18 Ondansetron [Zofran ODT] 8 mg PO DAILY PRN 04/04/18 04/08/18 Simvastatin [Zocor] 80 mg PO HS 04/04/18 04/08/18 Triamcinolone Acetonide 1 applic TOPICAL BID 04/04/18 04/08/18 [Triamcinolone Acetonide 0.025%] fluPHENAZine DECANOATE [Prolixin 50 mg IM Q14D 04/08/18 04/08/18 Decanoate] Previous Rx's Medication Instructions Recorded Cyclobenzaprine [Flexeril] 10 mg PO TID #20 tab 04/04/18 Dexamethasone 0.75 mg PO DAILY #12 tab 04/08/18 Methocarbamol [Robaxin] 750 mg PO QID #10 tab 04/08/18 Allergies Allergy/AdvReac Type Severity Reaction Status Date / Time ciprofloxacin Allergy Unknown Nausea Verified 04/08/18 19:08 dicyclomine HCl [From Bentyl] Allergy Unknown Dyspnea Verified 04/08/18 19:08 latex Allergy Unknown Rash/Hives Verified 04/08/18 19:08 Macrolide Antibiotics Allergy Unknown Nausea Verified 04/08/18 19:08 diphenhydramine HCl Allergy Anaphylaxis Verified 04/08/18 19:08 [From Benadryl] adhesive AdvReac Unknown Itching Verified 04/08/18 19:08 sulfamethoxazole AdvReac Unknown Unknown Verified 04/08/18 19:08 [From Bactrim] trimethoprim [From Bactrim] AdvReac Unknown Unknown Verified 04/08/18 19:08 Review of Systems ROS Statement: Those systems with pertinent positive or pertinent negative responses have been documented in the HPI. ROS Other: All systems not noted in ROS Statement are negative. Past Medical History Past Medical History: Asthma, Chest Pain / Angina, COPD, CVA/TIA, Diabetes Mellitus, GERD/Reflux, Hearing Disorder / Deafness, Hyperlipidemia, Hypertension , Liver Disease, Osteoarthritis (OA), Pneumonia, Seizure Disorder, Sleep Apnea/ CPAP/BIPAP Additional Past Medical History / Comment(s): Cyst on kidney, uses cpap (22) History of Any Multi-Drug Resistant Organisms: None Reported Past Surgical History: Heart Catheterization, Orthopedic Surgery Additional Past Surgical History / Comment(s): Cysts removed, left thumb surgery Past Anesthesia/Blood Transfusion Reactions: Motion Sickness, Postoperative Nausea & Vomiting (PONV) Past Psychological History: Anxiety, Bipolar, Depression, Schizophrenia Smoking Status: Current every day smoker Past Alcohol Use History: None Reported, Rare Past Drug Use History: None Reported - Past Family History Brother(s) Family Medical History: Diabetes Mellitus Additional Family Medical History / Comment(s): Patient has 2 brothers. One from complications from diabetes. The second is alive with diabetes. Sister(s) Family Medical History: Cancer Additional Family Medical History / Comment(s): Patient has one sister with breast cancer. Patient does not have any children. Father Family Medical History: Cancer Additional Family Medical History / Comment(s): Father in his 40s or 50s from colon cancer. Mother Family Medical History: Cancer Additional Family Medical History / Comment(s): Mother at age 68 from lung cancer. General Exam - General Exam Comments Initial Comments: Patient is a 48-year-old male. Alert and oriented. No significant distress. Limitations: no limitations Head exam: Present: atraumatic, normocephalic, normal inspection Eye exam: Present: normal appearance, PERRL, EOMI. Absent: scleral icterus, conjunctival injection, periorbital swelling ENT exam: Present: normal exam, mucous membranes moist Neck exam: Present: normal inspection, full ROM. Absent: tenderness, meningismus, lymphadenopathy Respiratory exam: Present: normal lung sounds bilaterally, other (tenderness over shoulders, and chest wall. ). Absent: respiratory distress, wheezes, rales , rhonchi, stridor Cardiovascular Exam: Present: regular rate, normal rhythm, normal heart sounds. Absent: systolic murmur, diastolic murmur, rubs, gallop, clicks GI/Abdominal exam: Present: soft, normal bowel sounds. Absent: distended, tenderness, guarding, rebound, rigid Extremities exam: Present: normal inspection, full ROM, normal capillary refill. Absent: tenderness, pedal edema, joint swelling, calf tenderness Back exam: Present: normal inspection Neurological exam: Present: alert, oriented X3, CN II-XII intact Psychiatric exam: Present: normal affect, normal mood Course Vital Signs 04/08/18 04/08/18 04/08/18 18:05 20:34 20:55 Temperature 99.7 F H 98.9 F Pulse Rate 86 72 Respiratory 18 18 18 Rate Blood Pressure 117/78 129/65 O2 Sat by Pulse 98 99 Oximetry Medical Decision Making - Medical Decision Making Patient is a 48 year old male with CC of neck, shoulder pain, and reportst that pain radiates to chest. Chest pain is reproducible to palpation. He has full ROM of neck, no evidence of torticollis. Patient did have normal troponin and normal CXR and normal EKG. Patient pain is musculoskeletal in nature. PAtient given IV flexeril. He is requesting narcotic pain medication, and discussed this is not needed at this time. Patient will be DC with robaxin and dexamethasone for muscle strain. Discussed return parameters. - Lab Data Result diagrams: 04/08/18 19:48 04/08/18 19:48 Lab Results 04/08/18 04/08/18 04/08/18 Range/Units 19:48 19:48 19:48 WBC 13.5 H (3.8-10.6) k/uL RBC 4.80 (4.30-5.90) m/uL Hgb 14.8 (13.0-17.5) gm/dL Hct 42.5 (39.0-53.0) % MCV 88.5 (80.0-100.0) fL MCH 30.9 (25.0-35.0) pg MCHC 35.0 (31.0-37.0) g/dL RDW 13.0 (11.5-15.5) % Plt Count 222 (150-450) k/uL Neutrophils % 79 % Lymphocytes % 14 % Monocytes % 4 % Eosinophils % 2 % Basophils % 0 % Neutrophils # 10.6 H (1.3-7.7) k/uL Lymphocytes # 1.9 (1.0-4.8) k/uL Monocytes # 0.6 (0-1.0) k/uL Eosinophils # 0.3 (0-0.7) k/uL Basophils # 0.0 (0-0.2) k/uL Sodium 142 (137-145) mmol/L Potassium 4.0 (3.5-5.1) mmol/L Chloride 110 H (98-107) mmol/L Carbon Dioxide 23 (22-30) mmol/L Anion Gap 9 mmol/L BUN 13 (9-20) mg/dL Creatinine 0.89 (0.66-1.25) mg/dL Est GFR (CKD-EPI)AfAm >90 (>60 ml/min/1.73 sqM) Est GFR (CKD-EPI)NonAf >90 (>60 ml/min/1.73 sqM) Glucose 95 (74-99) mg/dL Calcium 10.1 (8.4-10.2) mg/dL Total Bilirubin 0.2 (0.2-1.3) mg/dL AST 22 (17-59) U/L ALT 32 (21-72) U/L Alkaline Phosphatase 76 (38-126) U/L Troponin I <0.012 (0.000-0.034) ng/mL Total Protein 6.7 (6.3-8.2) g/dL Albumin 4.2 (3.5-5.0) g/dL 04/08/18 19:41 EKG performed at 1915 shows process immediately report arrange back. Nonspecific T-wave abnormality noted. Ventricular rate of 73 bpm. Pulse 134 ms. QRS duration 90 ms. QT QTC 390/429 ms. - Radiology Data Radiology results: report reviewed Normal CXR. Disposition Clinical Impression: Shoulder pain, Cervical strain Disposition: HOME SELF-CARE Condition: Good Instructions: Cervical Sprain (ED) Additional Instructions: Patient has a follow-up with primary care provider. Continue to take the medication as prescribed. Return to emergency department if any alarming signs or symptoms occur. Prescriptions: Dexamethasone 0.75 mg PO DAILY #12 tab Methocarbamol [Robaxin] 750 mg PO QID #10 tab Is patient prescribed a controlled substance at d/c from ED?: No Referrals: Ramya Saul MD [Primary Care Provider] - 1-2 days Time of Disposition: 20:44
--- NOTE | 2018-04-08 20:04 | XR ---
EXAMINATION TYPE: XR chest 2V DATE OF EXAM: 04/08/2018 COMPARISON: 12/20/2017 HISTORY: Chest pain TECHNIQUE: Frontal and lateral views of the chest are obtained. FINDINGS: Heart and mediastinum are normal. Lungs are clear. Diaphragm is normal. Bony thorax is int act. Pulmonary vascularity is normal. IMPRESSION: Normal chest. No change.
[2018-04-08 20:09] LABS: Basophils % (A) 0 %; Eosinophils # (A) 0.3 k/uL (0-0.7); Eosinophils % (A) 2 %; HCT 42.5 % (39.0-53.0); HGB 14.8 gm/dL (13.0-17.5); Lymphocytes # (A) 1.9 k/uL (1.0-4.8); Lymphocytes % (A) 14 %; MCH 30.9 pg (25.0-35.0); MCV 88.5 fL (80.0-100.0); Monocytes # (A) 0.6 k/uL (0-1.0); Monocytes % (A) 4 %; Neutrophils # (A) 10.6 k/uL (1.3-7.7); Neutrophils % (A) 79 %; Platelet Count 222 k/uL (150-450); WBC 13.5 k/uL (3.8-10.6)
[2018-04-08 20:18] LABS: ALT 32 U/L (21-72); AST 22 U/L (17-59); Albumin 4.2 g/dL (3.5-5.0); Alkaline Phosphatase 76 U/L (38-126); Anion Gap 9 mmol/L; Blood Urea Nitrogen 13 mg/dL (9-20); Calcium 10.1 mg/dL (8.4-10.2); Carbon Dioxide 23 mmol/L (22-30); Chloride 110 mmol/L (98-107); Glucose 95 mg/dL (74-99); Sodium 142 mmol/L (137-145); Total Bilirubin 0.2 mg/dL (0.2-1.3); Total Protein 6.7 g/dL (6.3-8.2)
[2018-04-08] MEDS ORDERED: methylPREDNISolone SOD SUCCI 125 MG/2 ML VIAL IV STA (20:43)
[2018-04-08 21:02] VITALS: BP 129/65; PULSE 72; TEMP 98.9
== END 2018-04-08 20:25 | disposition home or self-care (01) ==
LOC: EC 17:58
DX: S16.1XXA Strain of muscle, fascia and tendon at neck level, initial encounter (principal); M25.512 Pain in left shoulder; R07.9 Chest pain, unspecified; R05 Cough; E78.5 Hyperlipidemia, unspecified; I10 Essential (primary) hypertension; H91.90 Unspecified hearing loss, unspecified ear; J44.9 Chronic obstructive pulmonary disease, unspecified; M19.90 Unspecified osteoarthritis, unspecified site; K21.9 Gastro-esophageal reflux disease without esophagitis; E11.9 Type 2 diabetes mellitus without complications; G40.909 Epilepsy, unspecified, not intractable, without status epilepticus; F31.9 Bipolar disorder, unspecified; F41.9 Anxiety disorder, unspecified; F20.9 Schizophrenia, unspecified; G47.30 Sleep apnea, unspecified; F12.90 Cannabis use, unspecified, uncomplicated; F17.200 Nicotine dependence, unspecified, uncomplicated; Z88.1 Allergy status to other antibiotic agents; Z88.2 Allergy status to sulfonamides; Z88.8 Allergy status to other drugs, medicaments and biological substances; Z79.52 Long term (current) use of systemic steroids; Z79.1 Long term (current) use of non-steroidal anti-inflammatories (NSAID); Z87.01 Personal history of pneumonia (recurrent); Z79.84 Long term (current) use of oral hypoglycemic drugs; Z86.73 Personal history of transient ischemic attack (TIA), and cerebral infarction without residual deficits; Z79.02 Long term (current) use of antithrombotics/antiplatelets; Z79.899 Other long term (current) drug therapy; Z79.82 Long term (current) use of aspirin; Z79.51 Long term (current) use of inhaled steroids; Z95.9 Presence of cardiac and vascular implant and graft, unspecified; Z99.89 Dependence on other enabling machines and devices; X58.XXXA Exposure to other specified factors, initial encounter
CPT/HCPCS: 36415; 93005; 80053; 84484; 85025; 71046; 99284; 96372 ×2; J2360; J1885

== ENCOUNTER 2018-07-05 15:09 | Emergency (ER) | payer MEDICARE, OTHER ==
[2018-07-05 15:19] VITALS: TEMP 98.3
--- NOTE | 2018-07-05 15:33 | ED ---
General Adult HPI - General Chief complaint: Upper Respiratory Infection Stated complaint: CHEST Pain Time Seen by Provider: 07/05/18 15:15 Source: patient, EMS, RN notes reviewed Mode of arrival: EMS Limitations: no limitations - History of Present Illness Initial comments: This is a 48-year-old male with a past medical history of smoking and he continues to smoke. Patient comes in today because he states he's been having left-sided chest pain which is sharp in nature and lasted for 2 weeks per patient states he has never had any relief for the full 2 weeks. Patient states sometimes seems like it radiates to his left shoulder. Patient denies any shortness of breath. Patient states the pain sometimes gets worse with a deep breath. Patient denies any sweating episodes. Patient denies abdominal pain patient denies nausea vomiting diarrhea per patient denies any leg swelling or calf tenderness. Patient denies any fever chills cough. - Related Data Home Medications Medication Instructions Recorded Confirmed Tamsulosin HCl [Flomax] 0.4 mg PO DAILY 07/03/15 07/05/18 OXcarbazepine [Trileptal] 300 mg PO BID 02/19/17 07/05/18 Venlafaxine HCl ER [Effexor XR] 300 mg PO DAILY 02/19/17 07/05/18 Ergocalciferol (Vitamin D2) 50,000 unit PO Q7D 04/04/18 07/05/18 [Vitamin D2] Fenofibrate Nanocrystallized 48 mg PO DAILY 04/04/18 07/05/18 [Fenofibrate] fluPHENAZine DECANOATE [Prolixin 50 mg IM Q14D 04/08/18 07/05/18 Decanoate] metFORMIN HCL ER [Glucophage Xr] 1,000 mg PO PC-SUPPER 07/05/18 07/05/18 Allergies Allergy/AdvReac Type Severity Reaction Status Date / Time ciprofloxacin Allergy Unknown Nausea Verified 07/05/18 15:57 dicyclomine HCl [From Bentyl] Allergy Unknown Dyspnea Verified 07/05/18 15:57 latex Allergy Unknown Rash/Hives Verified 07/05/18 15:57 Macrolide Antibiotics Allergy Unknown Nausea Verified 07/05/18 15:57 diphenhydramine HCl Allergy Anaphylaxis Verified 07/05/18 15:57 [From Benadryl] adhesive AdvReac Unknown Itching Verified 07/05/18 15:57 sulfamethoxazole AdvReac Unknown Unknown Verified 07/05/18 15:57 [From Bactrim] trimethoprim [From Bactrim] AdvReac Unknown Unknown Verified 07/05/18 15:57 Review of Systems ROS Statement: Those systems with pertinent positive or pertinent negative responses have been documented in the HPI. ROS Other: All systems not noted in ROS Statement are negative. Past Medical History Past Medical History: Asthma, Chest Pain / Angina, COPD, CVA/TIA, Diabetes Mellitus, GERD/Reflux, Hearing Disorder / Deafness, Hyperlipidemia, Hypertension , Liver Disease, Osteoarthritis (OA), Pneumonia, Seizure Disorder, Sleep Apnea/ CPAP/BIPAP Additional Past Medical History / Comment(s): Cyst on kidney, uses cpap (22) History of Any Multi-Drug Resistant Organisms: None Reported Past Surgical History: Heart Catheterization, Orthopedic Surgery Additional Past Surgical History / Comment(s): Cysts removed, left thumb surgery Past Anesthesia/Blood Transfusion Reactions: Motion Sickness, Postoperative Nausea & Vomiting (PONV) Past Psychological History: Anxiety, Bipolar, Depression, Schizophrenia Smoking Status: Current every day smoker Past Alcohol Use History: None Reported, Rare Past Drug Use History: None Reported - Past Family History Brother(s) Family Medical History: Diabetes Mellitus Additional Family Medical History / Comment(s): Patient has 2 brothers. One from complications from diabetes. The second is alive with diabetes. Sister(s) Family Medical History: Cancer Additional Family Medical History / Comment(s): Patient has one sister with breast cancer. Patient does not have any children. Father Family Medical History: Cancer Additional Family Medical History / Comment(s): Father in his 40s or 50s from colon cancer. Mother Family Medical History: Cancer Additional Family Medical History / Comment(s): Mother at age 68 from lung cancer. General Exam - General Exam Comments Initial Comments: GENERAL: Patient is well-developed and well-nourished. Patient is nontoxic and well- hydrated and is in no acute distress. ENT: Neck is soft and supple. No significant lymphadenopathy is noted. Oropharynx is clear. Moist mucous membranes. Neck has full range of motion without eliciting any pain. EYES: The sclera were anicteric and conjunctiva were pink and moist. Extraocular movements were intact and pupils were equal round and reactive to light. Eyelids were unremarkable. PULMONARY: Unlabored respirations. Good breath sounds bilaterally. No audible rales rhonchi or wheezing was noted. CARDIOVASCULAR: There is a regular rate and rhythm without any murmurs gallops or rubs. ABDOMEN: Soft and nontender with normal bowel sounds. No palpable organomegaly was noted. There is no palpable pulsatile mass. SKIN: Skin is clear with no lesions or rashes and otherwise unremarkable. NEUROLOGIC: Patient is alert and oriented x3. Cranial nerves II through XII are grossly intact. Motor and sensory are also intact. Normal speech, volume and content. Symmetrical smile. MUSCULOSKELETAL: Normal extremities with adequate strength and full range of motion. No lower extremity swelling or edema. No calf tenderness. LYMPHATICS: No significant lymphadenopathy is noted PSYCHIATRIC: Normal psychiatric evaluation. Limitations: no limitations Course Vital Signs 07/05/18 07/05/18 15:14 16:25 Temperature 98.3 F Pulse Rate 81 64 Respiratory 18 16 Rate Blood Pressure 123/71 118/85 O2 Sat by Pulse 98 98 Oximetry Medical Decision Making - Medical Decision Making EKG shows normal sinus rhythm at 62 bpm MT interval 150 QRS is 98 QT interval 424 QTC is 4:30. Patient's EKG shows no ST segment elevation or depression or T wave normalities are noted. Patient was in the emergency department and was never in any distress. I went into see him on 2 different occasions and was sleeping both times. - Lab Data Result diagrams: 07/05/18 15:15 07/05/18 15:15 Lab Results 07/05/18 07/05/18 07/05/18 Range/Units 15:15 15:15 15:15 WBC 7.5 (3.8-10.6) k/uL RBC 4.86 (4.30-5.90) m/uL Hgb 15.4 (13.0-17.5) gm/dL Hct 43.2 (39.0-53.0) % MCV 88.8 (80.0-100.0) fL MCH 31.6 (25.0-35.0) pg MCHC 35.6 (31.0-37.0) g/dL RDW 13.1 (11.5-15.5) % Plt Count 214 (150-450) k/uL Neutrophils % 63 % Lymphocytes % 24 % Monocytes % 6 % Eosinophils % 4 % Basophils % 0 % Neutrophils # 4.7 (1.3-7.7) k/uL Lymphocytes # 1.8 (1.0-4.8) k/uL Monocytes # 0.5 (0-1.0) k/uL Eosinophils # 0.3 (0-0.7) k/uL Basophils # 0.0 (0-0.2) k/uL Sodium 142 (137-145) mmol/L Potassium 3.8 (3.5-5.1) mmol/L Chloride 108 H (98-107) mmol/L Carbon Dioxide 26 (22-30) mmol/L Anion Gap 8 mmol/L BUN 8 L (9-20) mg/dL Creatinine 0.85 (0.66-1.25) mg/dL Est GFR (CKD-EPI)AfAm >90 (>60 ml/min/1.73 sqM) Est GFR (CKD-EPI)NonAf >90 (>60 ml/min/1.73 sqM) Glucose 62 L (74-99) mg/dL Calcium 9.8 (8.4-10.2) mg/dL Magnesium 2.0 (1.6-2.3) mg/dL Total Bilirubin 0.3 (0.2-1.3) mg/dL AST 24 (17-59) U/L ALT 40 (21-72) U/L Alkaline Phosphatase 81 (38-126) U/L Total Creatine Kinase 166 (55-170) U/L CK-MB (CK-2) 1.1 (0.0-2.4) ng/mL CK-MB (CK-2) Rel Index 0.7 Troponin I <0.012 (0.000-0.034) ng/mL Total Protein 6.7 (6.3-8.2) g/dL Albumin 4.3 (3.5-5.0) g/dL Disposition Clinical Impression: Pleuritic chest pain Disposition: HOME SELF-CARE Instructions: Pleurisy (ED) Is patient prescribed a controlled substance at d/c from ED?: No Referrals: Ramya Saul MD [Primary Care Provider] - 1-2 days Time of Disposition: 16:52
[2018-07-05 15:54] LABS: Basophils % (A) 0 %; Eosinophils # (A) 0.3 k/uL (0-0.7); Eosinophils % (A) 4 %; HCT 43.2 % (39.0-53.0); HGB 15.4 gm/dL (13.0-17.5); Lymphocytes # (A) 1.8 k/uL (1.0-4.8); Lymphocytes % (A) 24 %; MCH 31.6 pg (25.0-35.0); MCHC 35.6 g/dL (31.0-37.0); MCV 88.8 fL (80.0-100.0); Mean Platelet Volume 7.4; Monocytes # (A) 0.5 k/uL (0-1.0); Monocytes % (A) 6 %; Neutrophils # (A) 4.7 k/uL (1.3-7.7); Neutrophils % (A) 63 %; Platelet Count 214 k/uL (150-450); RBC 4.86 m/uL (4.30-5.90); RDW 13.1 % (11.5-15.5); WBC 7.5 k/uL (3.8-10.6)
[2018-07-05 16:11] LABS: Potassium 3.8 mmol/L (3.5-5.1)
[2018-07-05 16:12] LABS: ALT 40 U/L (21-72); AST 24 U/L (17-59); Albumin 4.3 g/dL (3.5-5.0); Alkaline Phosphatase 81 U/L (38-126); Anion Gap 8 mmol/L; Blood Urea Nitrogen 8 mg/dL (9-20); Calcium 9.8 mg/dL (8.4-10.2); Carbon Dioxide 26 mmol/L (22-30); Chloride 108 mmol/L (98-107); Creatine Kinase 166 U/L (55-170); Glucose 62 mg/dL (74-99); Sodium 142 mmol/L (137-145); Total Bilirubin 0.3 mg/dL (0.2-1.3); Total Protein 6.7 g/dL (6.3-8.2)
[2018-07-05 16:24] LABS: Creatine Kinase MB 1.1 ng/mL (0.0-2.4); Troponin I <0.012 ng/mL (0.000-0.034)
[2018-07-05 17:47] VITALS: BP 121/72; PULSE 70; RESP 18
[2018-07-05 17:58] LABS: Glucose,Whole Blood 139 mg/dL (75-99)
== END 2018-07-05 17:48 | disposition home or self-care (01) ==
LOC: EC 15:09
DX: R07.81 Pleurodynia (principal); E78.5 Hyperlipidemia, unspecified; I10 Essential (primary) hypertension; E11.9 Type 2 diabetes mellitus without complications; F20.9 Schizophrenia, unspecified; G40.909 Epilepsy, unspecified, not intractable, without status epilepticus; F32.9 Major depressive disorder, single episode, unspecified; F41.9 Anxiety disorder, unspecified; G47.30 Sleep apnea, unspecified; F17.200 Nicotine dependence, unspecified, uncomplicated; Z88.1 Allergy status to other antibiotic agents; Z88.2 Allergy status to sulfonamides; Z88.8 Allergy status to other drugs, medicaments and biological substances; Z91.040 Latex allergy status; Z91.048 Other nonmedicinal substance allergy status; Z79.84 Long term (current) use of oral hypoglycemic drugs; Z79.899 Other long term (current) drug therapy; Z99.89 Dependence on other enabling machines and devices; Z95.818 Presence of other cardiac implants and grafts
CPT/HCPCS: 36415; 80053; 82550; 82553; 83735; 84484; 85025; 93005; 99285

== ENCOUNTER 2018-08-25 21:10 | Emergency (ER) | payer MEDICARE, OTHER ==
--- NOTE | 2018-08-25 23:16 | ED ---
Headache HPI - General Chief Complaint: Headache Stated Complaint: Headache Time Seen by Provider: 08/25/18 22:45 Mode of arrival: EMS Limitations: no limitations - History of Present Illness Initial Comments: 48-year-old male patient presents to the emergency department today for evaluation of headache. Patient states the headache is in the frontal region. Patient states he is having a lot of sinus pressure, congestion, and sneezing. Patient states his been going on for the last 2-3 days. States that the headache started gradually and has worsened in intensity. He denies taking any medication for his symptoms. Denies any fever, chills, cough, sore throat, nausea, vomiting, blurred vision, double vision, numbness, tingling, weakness to his extremities. Patient denies any recent rash, shortness breath, chest pain, abdominal pain, diarrhea, constipation, back pain, numbness, tingling, dizziness, weakness, hematuria, dysuria, urinary urgency, urinary frequency, or any other complaints. - Related Data Home Medications Medication Instructions Recorded Confirmed Tamsulosin HCl [Flomax] 0.4 mg PO DAILY 07/03/15 07/05/18 OXcarbazepine [Trileptal] 300 mg PO BID 02/19/17 07/05/18 Venlafaxine HCl ER [Effexor XR] 300 mg PO DAILY 02/19/17 07/05/18 Ergocalciferol (Vitamin D2) 50,000 unit PO Q7D 04/04/18 07/05/18 [Vitamin D2] Fenofibrate Nanocrystallized 48 mg PO DAILY 04/04/18 07/05/18 [Fenofibrate] fluPHENAZine DECANOATE [Prolixin 50 mg IM Q14D 04/08/18 07/05/18 Decanoate] metFORMIN HCL ER [Glucophage Xr] 1,000 mg PO PC-SUPPER 07/05/18 07/05/18 Previous Rx's Medication Instructions Recorded Fluticasone Nasal [place] [Flonase 1 spray EA NOSTRIL DAILY #1 bottle 08/25/18 Nasal [place]] guaiFENesin-DM 600/30MG [Mucinex 1 each PO Q12HR #10 tab.er.12h 08/25/18 Dm] Allergies Allergy/AdvReac Type Severity Reaction Status Date / Time ciprofloxacin Allergy Unknown Nausea Verified 02/28/19 22:54 dicyclomine HCl [From Bentyl] Allergy Unknown Dyspnea Verified 08/25/18 22:54 latex Allergy Unknown Rash/Hives Verified 08/25/18 22:54 Macrolide Antibiotics Allergy Unknown Nausea Verified 08/25/18 22:54 diphenhydramine HCl Allergy Anaphylaxis Verified 08/25/18 22:54 [From Benadryl] adhesive AdvReac Unknown Itching Verified 08/25/18 22:54 sulfamethoxazole AdvReac Unknown Unknown Verified 08/25/18 22:54 [From Bactrim] trimethoprim [From Bactrim] AdvReac Unknown Unknown Verified 08/25/18 22:54 Review of Systems ROS Statement: Those systems with pertinent positive or pertinent negative responses have been documented in the HPI. ROS Other: All systems not noted in ROS Statement are negative. Past Medical History Past Medical History: Asthma, Chest Pain / Angina, COPD, CVA/TIA, Diabetes Mellitus, GERD/Reflux, Hearing Disorder / Deafness, Hyperlipidemia, Hypertension , Liver Disease, Osteoarthritis (OA), Pneumonia, Seizure Disorder, Sleep Apnea/ CPAP/BIPAP Additional Past Medical History / Comment(s): Cyst on kidney, uses cpap (22) History of Any Multi-Drug Resistant Organisms: None Reported Past Surgical History: Heart Catheterization, Orthopedic Surgery Additional Past Surgical History / Comment(s): Cysts removed, left thumb surgery Past Anesthesia/Blood Transfusion Reactions: Motion Sickness, Postoperative Nausea & Vomiting (PONV) Past Psychological History: Anxiety, Bipolar, Depression, Schizophrenia Smoking Status: Current every day smoker Past Alcohol Use History: Abuse, Daily, Heavy Past Drug Use History: None Reported, Marijuana - Past Family History Brother(s) Family Medical History: Diabetes Mellitus Additional Family Medical History / Comment(s): Patient has 2 brothers. One from complications from diabetes. The second is alive with diabetes. Sister(s) Family Medical History: Cancer Additional Family Medical History / Comment(s): Patient has one sister with breast cancer. Patient does not have any children. Father Family Medical History: Cancer Additional Family Medical History / Comment(s): Father in his 40s or 50s from colon cancer. Mother Family Medical History: Cancer Additional Family Medical History / Comment(s): Mother at age 68 from lung cancer. General Exam Limitations: no limitations General appearance: alert, in no apparent distress, other (Social well-developed , well-nourished adult male patient in no acute distress. Vital signs upon presentation are temperature 98.8F, pulse 76, respirations 18, blood pressure 119/81, pulse ox 98% on room air.) Eye exam: Present: normal appearance, PERRL, EOMI. Absent: scleral icterus, conjunctival injection, nystagmus, periorbital swelling ENT exam: Present: normal exam, normal oropharynx, mucous membranes moist, TM's normal bilaterally Respiratory exam: Present: normal lung sounds bilaterally Cardiovascular Exam: Present: regular rate, normal rhythm, normal heart sounds. Absent: systolic murmur, diastolic murmur, rubs, gallop, clicks GI/Abdominal exam: Present: soft, normal bowel sounds. Absent: distended, tenderness, guarding, rebound, rigid Neurological exam: Present: alert, oriented X3, CN II-XII intact Expanded Speech: Present: fluid speech Cranial nerves: EOM's Intact: Normal, Nystagmus: Normal Cerebellar function: Finger to Nose: Normal Motor strength exam: RUE: 5, LUE: 5, RLE: 5, LLE: 5 Psychiatric exam: Present: normal affect, normal mood Skin exam: Present: warm, dry, intact, normal color. Absent: rash Course Vital Signs 08/25/18 08/25/18 21:42 23:33 Temperature 98.8 F 97 F L Pulse Rate 76 79 Respiratory 18 20 Rate Blood Pressure 119/81 144/79 O2 Sat by Pulse 98 98 Oximetry Medical Decision Making - Medical Decision Making 48-year-old male patient presents to the emergency department today for evaluation of frontal headache and sinus pressure. Physical examination does reveal frontal and maxillary sinus tenderness. Vital signs are stable, afebrile. He is given Tylenol, ibuprofen, Mucinex DM here in the emergency department. We discharged home with prescription for Mucinex D and Flonase. He is instructed to follow-up with his primary care physician for recheck in 1- 2 days. Return parameters were discussed in detail. He verbalizes understanding and agrees this plan. Disposition Clinical Impression: Sinusitis, Acute headache Disposition: HOME SELF-CARE Condition: Good Instructions (If sedation given, give patient instructions): Sinusitis (ED), Acute Headache (ED) Additional Instructions: Take Tylenol Motrin for pain control. Take Mucinex DM and Flonase to aid sinus symptoms. Follow-up through primary care physician for recheck in 1-2 days. Return to the emergency department immediately for any new, worsening, or concerning symptoms. Prescriptions: Fluticasone Nasal [place] [Flonase Nasal [place]] 1 spray EA NOSTRIL DAILY #1 bottle guaiFENesin-DM 600/30MG [Mucinex Dm] 1 each PO Q12HR #10 tab.er.12h Is patient prescribed a controlled substance at d/c from ED?: No Referrals: Ramya Saul MD [Primary Care Provider] - 1-2 days Time of Disposition: 23:16
[2018-08-25] MEDS: guaiFENesin-DM 600/30MG 1 EACH TAB.ER.12H PO STA (23:30)
[2018-08-25] MEDS: IBUPROFEN 600 MG TAB PO STA (23:31)
[2018-08-25] MEDS: ACETAMINOPHEN TAB 500 MG TAB PO STA (23:32)
[2018-08-25 23:33] VITALS: BP 144/79; PULSE 79; RESP 20; TEMP 97
== END 2018-08-25 23:33 | disposition home or self-care (01) ==
LOC: EC 21:10
DX: J32.9 Chronic sinusitis, unspecified (principal); E11.9 Type 2 diabetes mellitus without complications; H91.90 Unspecified hearing loss, unspecified ear; E78.5 Hyperlipidemia, unspecified; I10 Essential (primary) hypertension; G40.909 Epilepsy, unspecified, not intractable, without status epilepticus; F20.9 Schizophrenia, unspecified; F31.9 Bipolar disorder, unspecified; F41.9 Anxiety disorder, unspecified; M19.90 Unspecified osteoarthritis, unspecified site; F17.200 Nicotine dependence, unspecified, uncomplicated; G47.30 Sleep apnea, unspecified; Z99.89 Dependence on other enabling machines and devices; Z79.84 Long term (current) use of oral hypoglycemic drugs; Z79.899 Other long term (current) drug therapy; Z88.2 Allergy status to sulfonamides; Z88.1 Allergy status to other antibiotic agents; Z91.040 Latex allergy status; Z88.8 Allergy status to other drugs, medicaments and biological substances; Z91.048 Other nonmedicinal substance allergy status; Z95.818 Presence of other cardiac implants and grafts
CPT/HCPCS: 99284

== ENCOUNTER 2018-09-06 15:27 | Emergency (ER) | payer MEDICARE, OTHER ==
[2018-09-06 15:44] VITALS: BP 130/83; PULSE 67; RESP 18; TEMP 97.4
--- NOTE | 2018-09-06 15:53 | ED ---
General Adult HPI - General Chief complaint: Psychiatric Symptoms Stated complaint: SUICIDAL Time Seen by Provider: 09/06/18 15:30 Source: patient, police, EMS, RN notes reviewed Mode of arrival: EMS Limitations: no limitations - History of Present Illness Initial comments: This is a 48-year-old male presents emergency Department stating he's been heari ng voices. Patient states he always used voices but over the last month they've increased. Patient states he's also been having dreams about his own . Patient states he does not want harm himself but he has thought about jumping in front of a car about a week ago. Patient denies any physical complaints. Patient denies any chest pain or difficulty breathing. Patient denies any fever chills per patient denies any headache per patient denies abdominal pain patient denies any nausea vomiting diarrhea. - Related Data Home Medications Medication Instructions Recorded Confirmed Tamsulosin HCl [Flomax] 0.4 mg PO DAILY 07/03/15 09/06/18 OXcarbazepine [Trileptal] 300 mg PO BID 02/19/17 09/06/18 Venlafaxine HCl ER [Effexor XR] 300 mg PO DAILY 02/19/17 09/06/18 Ergocalciferol (Vitamin D2) 50,000 unit PO Q7D 04/04/18 09/06/18 [Vitamin D2] fluPHENAZine DECANOATE [Prolixin 50 mg IM Q14D 04/08/18 09/06/18 Decanoate] Acetaminophen Tab [Tylenol Tab] 325 mg PO TID 09/06/18 09/06/18 Albuterol Nebulized [Ventolin 2.5 mg INHALATION RT-BID PRN 09/06/18 09/06/18 Nebulized] Albuterol Sulfate [Proair Hfa] 2 puff INHALATION RT-Q6H PRN 09/06/18 09/06/18 Dipyridamole-Aspirin 200-25 mg 1 cap PO BID 09/06/18 09/06/18 [Aggrenox] Gabapentin 800 mg PO QID 09/06/18 09/06/18 Loratadine [Claritin] 10 mg PO DAILY 09/06/18 09/06/18 Meloxicam [Mobic] 15 mg PO DAILY 09/06/18 09/06/18 Omeprazole [PriLOSEC] 20 mg PO DAILY 09/06/18 09/06/18 Simvastatin 40 mg PO DAILY 09/06/18 09/06/18 Allergies Allergy/AdvReac Type Severity Reaction Status Date / Time ciprofloxacin Allergy Unknown Nausea Verified 09/06/18 15:48 dicyclomine HCl [From Bentyl] Allergy Unknown Dyspnea Verified 09/06/18 15:48 latex Allergy Unknown Rash/Hives Verified 09/06/18 15:48 Macrolide Antibiotics Allergy Unknown Nausea Verified 09/06/18 15:48 diphenhydramine HCl Allergy Anaphylaxis Verified 09/06/18 15:48 [From Benadryl] adhesive AdvReac Unknown Itching Verified 09/06/18 15:48 sulfamethoxazole AdvReac Unknown Unknown Verified 09/06/18 15:48 [From Bactrim] trimethoprim [From Bactrim] AdvReac Unknown Unknown Verified 09/06/18 15:48 Review of Systems ROS Statement: Those systems with pertinent positive or pertinent negative responses have been documented in the HPI. ROS Other: All systems not noted in ROS Statement are negative. Past Medical History Past Medical History: Asthma, Chest Pain / Angina, COPD, CVA/TIA, Diabetes Mellitus, GERD/Reflux, Hearing Disorder / Deafness, Hyperlipidemia, Hypertension, Liver Disease, Osteoarthritis (OA), Pneumonia, Seizure Disorder, Sleep Apnea/CPAP/BIPAP Additional Past Medical History / Comment(s): Cyst on kidney, uses cpap (22) History of Any Multi-Drug Resistant Organisms: None Reported Past Surgical History: Heart Catheterization, Orthopedic Surgery Additional Past Surgical History / Comment(s): Cysts removed, left thumb surgery Past Anesthesia/Blood Transfusion Reactions: Motion Sickness, Postoperative Nausea & Vomiting (PONV) Past Psychological History: Anxiety, Bipolar, Depression, Schizophrenia Smoking Status: Current every day smoker Past Alcohol Use History: Abuse, Daily, Heavy Past Drug Use History: None Reported, Marijuana - Past Family History Brother(s) Family Medical History: Diabetes Mellitus Additional Family Medical History / Comment(s): Patient has 2 brothers. One from complications from diabetes. The second is alive with diabetes. Sister(s) Family Medical History: Cancer Additional Family Medical History / Comment(s): Patient has one sister with breast cancer. Patient does not have any children. Father Family Medical History: Cancer Additional Family Medical History / Comment(s): Father in his 40s or 50s from colon cancer. Mother Family Medical History: Cancer Additional Family Medical History / Comment(s): Mother at age 68 from lung cancer. General Exam - General Exam Comments Initial Comments: GENERAL: Patient is well-developed and well-nourished. Patient is nontoxic and well- hydrated and is in mild distress. ENT: Neck is soft and supple. No significant lymphadenopathy is noted. Oropharynx is clear. Moist mucous membranes. Neck has full range of motion without eliciting any pain. EYES: The sclera were anicteric and conjunctiva were pink and moist. Extraocular movements were intact and pupils were equal round and reactive to light. Eyelids were unremarkable. PULMONARY: Unlabored respirations. Good breath sounds bilaterally. No audible rales rhonchi or wheezing was noted. CARDIOVASCULAR: There is a regular rate and rhythm without any murmurs gallops or rubs. ABDOMEN: Soft and nontender with normal bowel sounds. SKIN: Skin is clear with no lesions or rashes and otherwise unremarkable. NEUROLOGIC: Patient is alert and oriented x3. Cranial nerves II through XII are grossly intact. Motor and sensory are also intact. Normal speech, volume and content. Symmetrical smile. MUSCULOSKELETAL: Normal extremities with adequate strength and full range of motion. No lower extremity swelling or edema. No calf tenderness. LYMPHATICS: No significant lymphadenopathy is noted PSYCHIATRIC: Patient states she's been hearing voices. Patient denies suicidal ideations to me. Limitations: no limitations Course Vital Signs 09/06/18 15:37 Temperature 97.4 F L Pulse Rate 67 Respiratory 18 Rate Blood Pressure 130/83 O2 Sat by Pulse 97 Oximetry Disposition Clinical Impression: Bipolar disorder Disposition: HOME SELF-CARE Condition: Good Additional Instructions: Patient should follow-up for EPS directions. Is patient prescribed a controlled substance at d/c from ED?: No Referrals: Ramya Saul MD [Primary Care Provider] - 1-2 days Time of Disposition: 16:32
[2018-09-06 21:35] LABS: Amphetamine Screen,Urine Not Detected (NotDetected); Barbiturate Screen,Urine Not Detected (NotDetected); Benzodiazepines Screen,Urine Not Detected (NotDetected); Cocaine Screen,Urine Not Detected (NotDetected); Methadone Screen, Urine Not Detected (NotDetected); Opiate Screen,Urine Not Detected (NotDetected); Oxycodone Screen, Urine Not Detected (NotDetected); Phencyclidine Screen,Urine Not Detected (NotDetected); Tricyclic Antidepressant,Urine Not Detected (NotDetected); Urn Cannabinoid Scrn Not Detected (NotDetected)
== END 2018-09-06 17:27 | disposition home or self-care (01) ==
LOC: EC 15:27
DX: F31.9 Bipolar disorder, unspecified (principal); F20.9 Schizophrenia, unspecified; J44.9 Chronic obstructive pulmonary disease, unspecified; E78.5 Hyperlipidemia, unspecified; I10 Essential (primary) hypertension; K21.9 Gastro-esophageal reflux disease without esophagitis; G43.909 Migraine, unspecified, not intractable, without status migrainosus; M19.90 Unspecified osteoarthritis, unspecified site; F41.9 Anxiety disorder, unspecified; G47.30 Sleep apnea, unspecified; H91.90 Unspecified hearing loss, unspecified ear; F17.200 Nicotine dependence, unspecified, uncomplicated; Z88.1 Allergy status to other antibiotic agents; Z88.2 Allergy status to sulfonamides; Z88.8 Allergy status to other drugs, medicaments and biological substances; Z91.040 Latex allergy status; Z91.09 Other allergy status, other than to drugs and biological substances; Z79.02 Long term (current) use of antithrombotics/antiplatelets; Z79.1 Long term (current) use of non-steroidal anti-inflammatories (NSAID); Z79.82 Long term (current) use of aspirin; Z79.899 Other long term (current) drug therapy; Z86.73 Personal history of transient ischemic attack (TIA), and cerebral infarction without residual deficits; Z95.818 Presence of other cardiac implants and grafts; Z99.89 Dependence on other enabling machines and devices
CPT/HCPCS: 80306; 82075; 99285

== ENCOUNTER 2019-01-19 14:14 | Emergency (ER) | payer MEDICARE, OTHER ==
[2019-01-19] MEDS ORDERED: SODIUM CHLORIDE 0.9% 1,000 ML IV STA (15:20)
[2019-01-19] MEDS ORDERED: ONDANSETRON 4 MG/2 ML VIAL IVP STA (15:20)
--- NOTE | 2019-01-19 15:20 | ED ---
Chest Pain HPI - General Chief Complaint: Chest Pain Stated Complaint: Chest pain, diarrhea Time Seen by Provider: 01/19/19 14:38 Source: patient, RN notes reviewed, old records reviewed Mode of arrival: ambulatory Limitations: no limitations - History of Present Illness Initial Comments: This is a 48-year-old male the ER for evaluation patient presents today for evaluation of chest pain or heartburn. History of same. Patient as well as facility history of mental health disease. Patient will be IP, does caregiver does know it is here. Patient denies shortness of breath no travel history no sick contacts no fevers cough or congestion MD Complaint: chest pain -: days(s) Onset: during rest Pain Location: left chest Pain Radiation: none Severity: mild Severity scale (1-10): 3 Quality: sharp Consistency: constant Improves With: nothing Worsens With: nothing Anginal Symptoms: nausea Treatments Prior to Arrival: none - Related Data Home Medications Medication Instructions Recorded Confirmed ARIPiprazole [Abilify] 10 mg PO HS 01/19/19 01/19/19 OLANZapine [ZyPREXA] 10 mg PO HS 01/19/19 01/19/19 Allergies Allergy/AdvReac Type Severity Reaction Status Date / Time ciprofloxacin Allergy Unknown Nausea Verified 01/19/19 15:00 dicyclomine HCl [From Bentyl] Allergy Unknown Dyspnea Verified 01/19/19 15:00 latex Allergy Unknown Rash/Hives Verified 01/19/19 15:00 Macrolide Antibiotics Allergy Unknown Nausea Verified 01/19/19 15:00 diphenhydramine HCl Allergy Anaphylaxis Verified 01/19/19 15:00 [From Benadryl] adhesive AdvReac Unknown Itching Verified 01/19/19 15:00 sulfamethoxazole AdvReac Unknown Unknown Verified 01/19/19 15:00 [From Bactrim] trimethoprim [From Bactrim] AdvReac Unknown Unknown Verified 01/19/19 15:00 Review of Systems ROS Statement: Those systems with pertinent positive or pertinent negative responses have been documented in the HPI. ROS Other: All systems not noted in ROS Statement are negative. Past Medical History Past Medical History: Asthma, Chest Pain / Angina, COPD, CVA/TIA, Diabetes Mellitus, GERD/Reflux, Hearing Disorder / Deafness, Hyperlipidemia, Hypertension, Liver Disease, Osteoarthritis (OA), Pneumonia, Seizure Disorder, Sleep Apnea/CPAP/BIPAP Additional Past Medical History / Comment(s): Cyst on kidney, uses cpap (22) History of Any Multi-Drug Resistant Organisms: None Reported Past Surgical History: Heart Catheterization, Orthopedic Surgery Additional Past Surgical History / Comment(s): Cysts removed, left thumb surgery Past Anesthesia/Blood Transfusion Reactions: Motion Sickness, Postoperative Nausea & Vomiting (PONV) Past Psychological History: Anxiety, Bipolar, Depression, Schizophrenia Smoking Status: Current every day smoker Past Alcohol Use History: Abuse, Daily, Heavy Past Drug Use History: None Reported, Marijuana - Past Family History Brother(s) Family Medical History: Diabetes Mellitus Additional Family Medical History / Comment(s): Patient has 2 brothers. One from complications from diabetes. The second is alive with diabetes. Sister(s) Family Medical History: Cancer Additional Family Medical History / Comment(s): Patient has one sister with breast cancer. Patient does not have any children. Father Family Medical History: Cancer Additional Family Medical History / Comment(s): Father in his 40s or 50s from colon cancer. Mother Family Medical History: Cancer Additional Family Medical History / Comment(s): Mother at age 68 from lung cancer. General Exam Limitations: no limitations General appearance: alert, in no apparent distress Head exam: Present: atraumatic, normocephalic, normal inspection Eye exam: Present: normal appearance, PERRL, EOMI. Absent: scleral icterus, conjunctival injection, periorbital swelling ENT exam: Present: normal exam, mucous membranes moist Neck exam: Present: normal inspection. Absent: tenderness, meningismus, lymphadenopathy Respiratory exam: Present: normal lung sounds bilaterally. Absent: respiratory distress, wheezes, rales, rhonchi, stridor Cardiovascular Exam: Present: regular rate, normal rhythm, normal heart sounds. Absent: systolic murmur, diastolic murmur, rubs, gallop, clicks GI/Abdominal exam: Present: soft, normal bowel sounds. Absent: distended, tenderness, guarding, rebound, rigid Extremities exam: Present: normal inspection, full ROM, normal capillary refill. Absent: tenderness, pedal edema, joint swelling, calf tenderness Back exam: Present: normal inspection Neurological exam: Present: alert, oriented X3, CN II-XII intact Psychiatric exam: Present: normal affect, normal mood Skin exam: Present: warm, dry, intact, normal color. Absent: rash Course Vital Signs 07/25/19 07/25/19 07/25/19 14:19 15:40 16:46 Temperature 98.7 F Pulse Rate 73 55 L 61 Respiratory 18 18 16 Rate Blood Pressure 119/77 135/42 114/63 O2 Sat by Pulse 97 98 98 Oximetry - Reevaluation(s) Reevaluation #1: 01/19/19 17:00 Medical records reviewed Reevaluation #2: 01/19/19 17:00 Symptoms improved Chest Pain MDM - MDM 48 male to the the ER for evaluation. With chest pain. No history of heart disease. Patient has gastritis-type symptoms can be discharged home Disposition Clinical Impression: Chest wall syndrome, Gastritis Disposition: HOME SELF-CARE Condition: Good Instructions (If sedation given, give patient instructions): Gastritis (ED) Is patient prescribed a controlled substance at d/c from ED?: No Referrals: Ramya Saul MD [Primary Care Provider] - 1-2 days
[2019-01-19] MEDS ORDERED: PANTOPRAZOLE 40 MG/10 ML VIAL IVP STA (15:21)
[2019-01-19 15:38] LABS: ALT 80 U/L (21-72); AST 43 U/L (17-59); African American GFR (CKD) >90 (>60 ml/min/1.73 sqM); Albumin 4.7 g/dL (3.5-5.0); Alkaline Phosphatase 97 U/L (38-126); Anion Gap 8 mmol/L; Blood Urea Nitrogen 4 mg/dL (9-20); Calcium 9.7 mg/dL (8.4-10.2); Carbon Dioxide 27 mmol/L (22-30); Chloride 106 mmol/L (98-107); Glucose 139 mg/dL (74-99); Magnesium 1.9 mg/dL (1.6-2.3); Potassium 3.9 mmol/L (3.5-5.1); Sodium 141 mmol/L (137-145); Total Bilirubin 0.5 mg/dL (0.2-1.3); Total Protein 7.1 g/dL (6.3-8.2)
[2019-01-19 15:47] LABS: D-Dimer 0.55 mg/L FEU (<0.60); INR 0.9 (<1.2); Partial Thromboplastin Time 23.6 sec (22.0-30.0); Prothrombin Time 9.7 sec (9.0-12.0)
--- NOTE | 2019-01-19 16:00 | XR ---
EXAMINATION TYPE: XR chest 2V DATE OF EXAM: 01/19/2019 COMPARISON: 04/08/2018 HISTORY: Chest pain TECHNIQUE: Frontal and lateral views of the chest are obtained. FINDINGS: There is no focal air space opacity, pleural effusion, or pneumothorax seen. Pulmonary hyp erinflation suggesting underlying COPD is seen with flattening of the diaphragms on the lateral view. The cardiac silhouette size is again mildly enlarged. The osseous structures are intact. Vertebr al body heights are similar to the prior of 04/08/2018 with mild multilevel degenerative changes. IMPRESSION: No acute cardiopulmonary process.
[2019-01-19 16:08] LABS: Basophils % (A) 0 %; Eosinophils # (A) 0.2 k/uL (0-0.7); Eosinophils % (A) 2 %; HCT 44.2 % (39.0-53.0); Lymphocytes # (A) 1.6 k/uL (1.0-4.8); Lymphocytes % (A) 25 %; MCH 29.1 pg (25.0-35.0); MCHC 34.1 g/dL (31.0-37.0); MCV 85.4 fL (80.0-100.0); Monocytes # (A) 0.4 k/uL (0-1.0); Monocytes % (A) 6 %; Neutrophils # (A) 4.4 k/uL (1.3-7.7); Neutrophils % (A) 65 %; Platelet Count 219 k/uL (150-450); RBC 5.17 m/uL (4.30-5.90); RDW 13.1 % (11.5-15.5); WBC 6.7 k/uL (3.8-10.6)
[2019-01-19 17:57] VITALS: BP 118/73; PULSE 59; RESP 18; TEMP 98.3
== END 2019-01-19 17:55 | disposition home or self-care (01) ==
LOC: EC 14:14
DX: K29.70 Gastritis, unspecified, without bleeding (principal); R07.1 Chest pain on breathing; K21.9 Gastro-esophageal reflux disease without esophagitis; F20.9 Schizophrenia, unspecified; F31.9 Bipolar disorder, unspecified; F41.9 Anxiety disorder, unspecified; H91.90 Unspecified hearing loss, unspecified ear; G47.30 Sleep apnea, unspecified; Z99.89 Dependence on other enabling machines and devices; F17.200 Nicotine dependence, unspecified, uncomplicated; Z86.73 Personal history of transient ischemic attack (TIA), and cerebral infarction without residual deficits; Z79.899 Other long term (current) drug therapy; Z88.1 Allergy status to other antibiotic agents; Z88.2 Allergy status to sulfonamides; Z88.8 Allergy status to other drugs, medicaments and biological substances; Z91.040 Latex allergy status; Z91.048 Other nonmedicinal substance allergy status; Z95.818 Presence of other cardiac implants and grafts
CPT/HCPCS: 99285; 96374; 96375; 96361 ×2; 36415; 93005; 85379; 83880; 80053; 83690; 83735; 84484; 85025; 85610; 85730; 71046; J2405; C9113

== ENCOUNTER 2019-02-20 13:49 | Emergency (ER) | payer MEDICARE, OTHER ==
[2019-02-20 13:58] VITALS: BP 119/80; PULSE 74; RESP 18; TEMP 98
== END 2019-02-20 15:10 | disposition left against medical advice (07) ==
LOC: EC 13:49
DX: R07.9 Chest pain, unspecified (principal); R10.9 Unspecified abdominal pain; R19.7 Diarrhea, unspecified; Z53.21 Procedure and treatment not carried out due to patient leaving prior to being seen by health care provider
CPT/HCPCS: 93005; 99499

== ENCOUNTER 2019-02-23 13:32 | Emergency (ER) | payer MEDICARE, OTHER ==
[2019-02-23] MEDS ORDERED: SODIUM CHLORIDE 0.9% 1,000 ML IV STA (14:06)
[2019-02-23] MEDS ORDERED: SODIUM CHLORIDE 0.9% 500 ML 500 ML IV STA (14:06)
[2019-02-23] MEDS ORDERED: PANTOPRAZOLE 40 MG/10 ML VIAL IVP STA (14:06)
[2019-02-23] MEDS ORDERED: SODIUM CHLORIDE 0.9% 2,000 ML IV STA (14:06)
[2019-02-23] MEDS ORDERED: MORPHINE SULFATE 4 MG/ML SYRINGE IV STA (14:06)
[2019-02-23] MEDS ORDERED: ONDANSETRON 4 MG/2 ML VIAL IVP STA (14:06)
[2019-02-23 14:07] VITALS: RESP 18
--- NOTE | 2019-02-23 14:37 | ED ---
Abdominal Pain HPI - General Chief Complaint: Abdominal Pain Stated Complaint: Abd pain, chest pain, Diarrhea Time Seen by Provider: 02/23/19 14:06 Source: patient, RN notes reviewed, old records reviewed Mode of arrival: ambulatory Limitations: no limitations - History of Present Illness Initial Comments: This is a 48-year-old male to the ER for evaluation. Patient resents today for evaluation regards to abdominal pain. Diffuse abdominal pain history of abdominal pain. Epigastric abdominal pain mild. Mild nausea no vomiting also chest pain. Patient admits to history of pancreatitis. But mildly poor historian. No recent travel history or sick contacts no fevers. No diarrhea or vomiting MD Complaint: abdominal pain -: days(s) Location: diffuse Radiation: epigastric Migration to: epigastric Severity: moderate Severity scale (1-10): 6 Quality: cramping, aching Consistency: constant Improves With: nothing Worsens With: eating Associated Symptoms: nausea, anorexia - Related Data Home Medications Medication Instructions Recorded Confirmed ARIPiprazole [Abilify] 10 mg PO HS 01/19/19 02/23/19 OLANZapine [ZyPREXA] 10 mg PO HS 01/19/19 02/23/19 Ergocalciferol (Vitamin D2) 50,000 unit PO MO 02/23/19 02/23/19 [Vitamin D2] Naproxen Sodium [Aleve] 220 mg PO DAILY PRN 02/23/19 02/23/19 Ranitidine HCl [Zantac] 150 mg PO BID 02/23/19 02/23/19 Simvastatin [Zocor] 10 mg PO HS 02/23/19 02/23/19 metFORMIN HCL [Glucophage] 500 mg PO BID 02/23/19 02/23/19 Allergies Allergy/AdvReac Type Severity Reaction Status Date / Time ciprofloxacin Allergy Unknown Nausea Verified 02/23/19 14:26 dicyclomine HCl [From Bentyl] Allergy Unknown Dyspnea Verified 02/23/19 14:26 latex Allergy Unknown Rash/Hives Verified 02/23/19 14:26 Macrolide Antibiotics Allergy Unknown Nausea Verified 02/23/19 14:26 diphenhydramine HCl Allergy Anaphylaxis Verified 02/23/19 14:26 [From Benadryl] adhesive AdvReac Unknown Itching Verified 02/23/19 14:26 sulfamethoxazole AdvReac Unknown Unknown Verified 02/23/19 14:26 [From Bactrim] trimethoprim [From Bactrim] AdvReac Unknown Unknown Verified 02/23/19 14:26 Review of Systems ROS Statement: Those systems with pertinent positive or pertinent negative responses have been documented in the HPI. ROS Other: All systems not noted in ROS Statement are negative. Past Medical History Past Medical History: Asthma, Chest Pain / Angina, COPD, CVA/TIA, Diabetes Mellitus, GERD/Reflux, Hearing Disorder / Deafness, Hyperlipidemia, Hypertension, Liver Disease, Osteoarthritis (OA), Pneumonia, Seizure Disorder, Sleep Apnea/CPAP/BIPAP Additional Past Medical History / Comment(s): Cyst on kidney, uses cpap (22) History of Any Multi-Drug Resistant Organisms: None Reported Past Surgical History: Heart Catheterization, Orthopedic Surgery Additional Past Surgical History / Comment(s): Cysts removed, left thumb surgery Past Anesthesia/Blood Transfusion Reactions: Motion Sickness, Postoperative Nausea & Vomiting (PONV) Past Psychological History: Anxiety, Bipolar, Depression, Schizophrenia Smoking Status: Current every day smoker Past Alcohol Use History: None Reported, Abuse, Daily, Heavy Past Drug Use History: Marijuana - Past Family History Brother(s) Family Medical History: Diabetes Mellitus Additional Family Medical History / Comment(s): Patient has 2 brothers. One from complications from diabetes. The second is alive with diabetes. Sister(s) Family Medical History: Cancer Additional Family Medical History / Comment(s): Patient has one sister with breast cancer. Patient does not have any children. Father Family Medical History: Cancer Additional Family Medical History / Comment(s): Father in his 40s or 50s from colon cancer. Mother Family Medical History: Cancer Additional Family Medical History / Comment(s): Mother at age 68 from lung cancer. General Exam Limitations: no limitations General appearance: alert, in no apparent distress Head exam: Present: atraumatic, normocephalic, normal inspection Eye exam: Present: normal appearance, PERRL, EOMI. Absent: scleral icterus, con junctival injection, periorbital swelling ENT exam: Present: normal exam, mucous membranes moist Neck exam: Present: normal inspection. Absent: tenderness, meningismus, lymphadenopathy Respiratory exam: Present: normal lung sounds bilaterally. Absent: respiratory distress, wheezes, rales, rhonchi, stridor Cardiovascular Exam: Present: regular rate, normal rhythm, normal heart sounds. Absent: systolic murmur, diastolic murmur, rubs, gallop, clicks GI/Abdominal exam: Present: soft, normal bowel sounds. Absent: distended, tenderness, guarding, rebound, rigid Extremities exam: Present: normal inspection, full ROM, normal capillary refill. Absent: tenderness, pedal edema, joint swelling, calf tenderness Back exam: Present: normal inspection Neurological exam: Present: alert, oriented X3, CN II-XII intact Psychiatric exam: Present: normal affect, normal mood Skin exam: Present: warm, dry, intact, normal color. Absent: rash Course Vital Signs 02/23/19 14:04 Temperature 98.6 F Pulse Rate 66 Respiratory 18 Rate Blood Pressure 103/70 O2 Sat by Pulse 99 Oximetry - Reevaluation(s) Reevaluation #1: 02/23/19 16:10 Record is reviewed history of pancreatitis Reevaluation #2: 02/23/19 16:10 Labwork is at normal currently. Patient lay better and can be discharged Medical Decision Making - Medical Decision Making 48 male the ER for evaluation patient does say for evaluation of bowel pain. Labwork and ultrasound is negative for acute disease. Patient can be discharged home - Lab Data Result diagrams: 02/23/19 14:31 02/23/19 14:31 Lab Results 02/23/19 02/23/19 02/23/19 Range/Units 14:31 14:31 14:31 WBC 8.5 (3.8-10.6) k/uL RBC 5.58 (4.30-5.90) m/uL Hgb 17.1 (13.0-17.5) gm/dL Hct 48.7 (39.0-53.0) % MCV 87.2 (80.0-100.0) fL MCH 30.7 (25.0-35.0) pg MCHC 35.2 (31.0-37.0) g/dL RDW 13.6 (11.5-15.5) % Plt Count 207 (150-450) k/uL Neutrophils % 69 % Lymphocytes % 20 % Monocytes % 5 % Eosinophils % 3 % Basophils % 0 % Neutrophils # 5.9 (1.3-7.7) k/uL Lymphocytes # 1.7 (1.0-4.8) k/uL Monocytes # 0.5 (0-1.0) k/uL Eosinophils # 0.3 (0-0.7) k/uL Basophils # 0.0 (0-0.2) k/uL PT (9.0-12.0) sec INR (<1.2) APTT (22.0-30.0) sec Sodium 142 (137-145) mmol/L Potassium 3.9 (3.5-5.1) mmol/L Chloride 107 (98-107) mmol/L Carbon Dioxide 26 (22-30) mmol/L Anion Gap 9 mmol/L BUN 7 L (9-20) mg/dL Creatinine 0.84 (0.66-1.25) mg/dL Est GFR (CKD-EPI)AfAm >90 (>60 ml/min/1.73 sqM) Est GFR (CKD-EPI)NonAf >90 (>60 ml/min/1.73 sqM) Glucose 132 H (74-99) mg/dL Plasma Lactic Acid Hunter 1.3 (0.7-2.0) mmol/L Calcium 9.9 (8.4-10.2) mg/dL Total Bilirubin 0.5 (0.2-1.3) mg/dL AST 42 (17-59) U/L ALT 72 (21-72) U/L Alkaline Phosphatase 79 (38-126) U/L Creatine Kinase 313 H (55-170) U/L Total Protein 6.9 (6.3-8.2) g/dL Albumin 4.4 (3.5-5.0) g/dL Amylase 62 (30-110) U/L Lipase 144 (23-300) U/L Urine Color Urine Appearance (Clear) Urine pH (5.0-8.0) Ur Specific Hamlin (1.001-1.035) Urine Protein (Negative) Urine Glucose (UA) (Negative) Urine Ketones (Negative) Urine Blood (Negative) Urine Nitrite (Negative) Urine Bilirubin (Negative) Urine Urobilinogen (<2.0) mg/dL Ur Leukocyte Esterase (Negative) 02/23/19 02/23/19 Range/Units 14:31 14:31 WBC (3.8-10.6) k/uL RBC (4.30-5.90) m/uL Hgb (13.0-17.5) gm/dL Hct (39.0-53.0) % MCV (80.0-100.0) fL MCH (25.0-35.0) pg MCHC (31.0-37.0) g/dL RDW (11.5-15.5) % Plt Count (150-450) k/uL Neutrophils % % Lymphocytes % % Monocytes % % Eosinophils % % Basophils % % Neutrophils # (1.3-7.7) k/uL Lymphocytes # (1.0-4.8) k/uL Monocytes # (0-1.0) k/uL Eosinophils # (0-0.7) k/uL Basophils # (0-0.2) k/uL PT 9.7 (9.0-12.0) sec INR 0.9 (<1.2) APTT 23.4 (22.0-30.0) sec Sodium (137-145) mmol/L Potassium (3.5-5.1) mmol/L Chloride (98-107) mmol/L Carbon Dioxide (22-30) mmol/L Anion Gap mmol/L BUN (9-20) mg/dL Creatinine (0.66-1.25) mg/dL Est GFR (CKD-EPI)AfAm (>60 ml/min/1.73 sqM) Est GFR (CKD-EPI)NonAf (>60 ml/min/1.73 sqM) Glucose (74-99) mg/dL Plasma Lactic Acid Hunter (0.7-2.0) mmol/L Calcium (8.4-10.2) mg/dL Total Bilirubin (0.2-1.3) mg/dL AST (17-59) U/L ALT (21-72) U/L Alkaline Phosphatase (38-126) U/L Creatine Kinase (55-170) U/L Total Protein (6.3-8.2) g/dL Albumin (3.5-5.0) g/dL Amylase (30-110) U/L Lipase (23-300) U/L Urine Color Light Yellow Urine Appearance Clear (Clear) Urine pH 5.5 (5.0-8.0) Ur Specific Hamlin 1.005 (1.001-1.035) Urine Protein Negative (Negative) Urine Glucose (UA) Negative (Negative) Urine Ketones Negative (Negative) Urine Blood Negative (Negative) Urine Nitrite Negative (Negative) Urine Bilirubin Negative (Negative) Urine Urobilinogen <2.0 (<2.0) mg/dL Ur Leukocyte Esterase Negative (Negative) - Radiology Data Radiology results: report reviewed (Ultrasound right upper quadrant negative for acute disease), image reviewed Disposition Clinical Impression: Abdominal pain, Anorexia Disposition: HOME SELF-CARE Instructions (If sedation given, give patient instructions): Abdominal Pain (ED) Is patient prescribed a controlled substance at d/c from ED?: No Referrals: None,Stated [Primary Care Provider] - 1-2 days
[2019-02-23 14:45] LABS: Basophils % (A) 0 %; Eosinophils # (A) 0.3 k/uL (0-0.7); Eosinophils % (A) 3 %; HCT 48.7 % (39.0-53.0); HGB 17.1 gm/dL (13.0-17.5); Lymphocytes # (A) 1.7 k/uL (1.0-4.8); Lymphocytes % (A) 20 %; MCH 30.7 pg (25.0-35.0); MCHC 35.2 g/dL (31.0-37.0); MCV 87.2 fL (80.0-100.0); Monocytes # (A) 0.5 k/uL (0-1.0); Monocytes % (A) 5 %; Neutrophils # (A) 5.9 k/uL (1.3-7.7); Neutrophils % (A) 69 %; Platelet Count 207 k/uL (150-450); RBC 5.58 m/uL (4.30-5.90); RDW 13.6 % (11.5-15.5); WBC 8.5 k/uL (3.8-10.6)
[2019-02-23 14:52] LABS: Appearance,Urine Clear (Clear); Bilirubin,Urine Negative (Negative); Blood,Urine Negative (Negative); Color,Urine Light Yellow; Glucose,Urine (UA) Negative (Negative); Ketones,Urine Negative (Negative); Leukocyte Esterase,Urine Negative (Negative); Nitrite,Urine Negative (Negative); PH, Urine 5.5 (5.0-8.0); Protein,Urine Negative (Negative); Specific Gravity,Urine 1.005 (1.001-1.035); Urobilinogen,Urine <2.0 mg/dL (<2.0)
[2019-02-23 14:56] LABS: ALT 72 U/L (21-72); AST 42 U/L (17-59); African American GFR (CKD) >90 (>60 ml/min/1.73 sqM); Albumin 4.4 g/dL (3.5-5.0); Alkaline Phosphatase 79 U/L (38-126); Amylase 62 U/L (30-110); Anion Gap 9 mmol/L; Blood Urea Nitrogen 7 mg/dL (9-20); Calcium 9.9 mg/dL (8.4-10.2); Carbon Dioxide 26 mmol/L (22-30); Chloride 107 mmol/L (98-107); Creatine Kinase 313 U/L (55-170); Glucose 132 mg/dL (74-99); Potassium 3.9 mmol/L (3.5-5.1); Sodium 142 mmol/L (137-145); Total Bilirubin 0.5 mg/dL (0.2-1.3); Total Protein 6.9 g/dL (6.3-8.2)
[2019-02-23 14:57] LABS: INR 0.9 (<1.2); Partial Thromboplastin Time 23.4 sec (22.0-30.0); Prothrombin Time 9.7 sec (9.0-12.0)
--- NOTE | 2019-02-23 15:35 | US ---
EXAMINATION TYPE: US gallbladder DATE OF EXAM: 02/23/2019 COMPARISON: CT January 10, 2018. Gallbladder ultrasound January 11, 2018 CLINICAL HISTORY: Pain. EXAM MEASUREMENTS: Liver Length: 14.0 cm Gallbladder Wall: 0.2 cm CBD: 0.7 cm Right Kidney: 12.0 x 4.5 x 5.0 cm Pancreas: Obscured by bowel gas Liver: heterogeneous, hypoechoic 3.2 x 4.1 x 5.8cm area of probable focal fatty sparing, hypoechoic areas adjacent to gallbladder as well. Gallbladder: wnl Evidence for sonographic Durán's sign: no CBD: Perhaps minimally dilated Right Kidney: cysts again noted Pancreas is suboptimally seen secondary to shadowing from overlying bowel gas and images saved. IVC i s seen in the hepatic dome. Visualized liver is heterogeneously hyperechoic consistent with diffuse f atty infiltration. No intrahepatic ductal dilatation is seen. The surrounding ascites noted. Images o f right kidney show no gross hydronephrosis. Simple appearing small thin-walled 1.7 cm cyst is marked by technologist. Gallbladder seen without shadowing mobile gallstones. Common bile duct measures 7 m m current study versus 5 mm prior study, accounting for technical differences this is likely stable a nd upper limits of normal. IMPRESSION: No shadowing mobile gallstones or ultrasonic evidence for acute cholecystitis.
[2019-02-23] MEDS ORDERED: MORPHINE SULFATE 4 MG/ML SYRINGE IVP STA (15:42)
[2019-02-23] MEDS ORDERED: ONDANSETRON 4 MG ODT STARTER PACK 2 TAB BTL PO STA (15:42)
[2019-02-23 16:44] VITALS: BP 109/73; PULSE 51; TEMP 97.9
== END 2019-02-23 16:44 | disposition home or self-care (01) ==
LOC: EC 13:32
DX: R10.84 Generalized abdominal pain (principal); R10.13 Epigastric pain; R63.0 Anorexia; R11.0 Nausea; E11.9 Type 2 diabetes mellitus without complications; K21.9 Gastro-esophageal reflux disease without esophagitis; E78.5 Hyperlipidemia, unspecified; F31.9 Bipolar disorder, unspecified; F20.9 Schizophrenia, unspecified; G47.30 Sleep apnea, unspecified; F17.200 Nicotine dependence, unspecified, uncomplicated; Z68.31 Body mass index [BMI] 31.0-31.9, adult; Z79.84 Long term (current) use of oral hypoglycemic drugs; Z79.899 Other long term (current) drug therapy; Z88.1 Allergy status to other antibiotic agents; Z88.2 Allergy status to sulfonamides; Z88.8 Allergy status to other drugs, medicaments and biological substances; Z91.040 Latex allergy status; Z91.048 Other nonmedicinal substance allergy status; Z95.5 Presence of coronary angioplasty implant and graft; Z86.73 Personal history of transient ischemic attack (TIA), and cerebral infarction without residual deficits
CPT/HCPCS: 36415; 80053; 82150; 82550; 83605; 83690; 85025; 85610; 85730; 81003; 87086; 76705; 99284; 96374; 96375 ×2; 96376; 96361 ×2; J2270; J2405; S0119; C9113

== ENCOUNTER 2019-03-06 16:45 | Emergency (ER) | payer MEDICARE, OTHER ==
[2019-03-06 16:51] VITALS: BP 133/85; PULSE 89; RESP 18; TEMP 97.9
[2019-03-06] MEDS ORDERED: ACETAMINOPHEN TAB 500 MG TAB PO STA (17:06)
--- NOTE | 2019-03-06 17:17 | XR ---
EXAMINATION TYPE: XR shoulder complete RT DATE OF EXAM: 03/06/2019 CLINICAL HISTORY: Pain and swelling. TECHNIQUE: Three views of the right shoulder are obtained. COMPARISON: Right shoulder x-rays March 02, 2018 FINDINGS: There is no acute fracture/dislocation evident in the right shoulder. The acromioclavicul ar and glenohumeral joint spaces appear within normal limits. The visualized ribs are intact and unr emarkable. IMPRESSION: As above. No significant change from prior.
--- NOTE | 2019-03-06 17:29 | ED ---
General Adult HPI - General Chief complaint: Extremity Injury, Upper Stated complaint: right shoulder/arm pain Time Seen by Provider: 03/06/19 16:51 Source: patient Limitations: no limitations - History of Present Illness Initial comments: 48-year-old male patient presents to the emergency department today for evaluation of right shoulder pain. Patient states he feels like his right arm is swollen. Patient denies any injury. States he has had this pain for quite some time. States the pain worsens significantly when he attempts to move the arm. Denies any numbness or tingling. Denies any fever or chills. Denies any history of blood clots. Patient denies any headache, neck pain, back pain, chest pain, shortness of breath, dizziness, weakness, abdominal pain, nausea, vomiting, or difficulties with bowel movements or urination. - Related Data Home Medications Medication Instructions Recorded Confirmed ARIPiprazole [Abilify] 10 mg PO HS 01/19/19 02/23/19 OLANZapine [ZyPREXA] 10 mg PO HS 01/19/19 02/23/19 Ergocalciferol (Vitamin D2) 50,000 unit PO MO 02/23/19 02/23/19 [Vitamin D2] Naproxen Sodium [Aleve] 220 mg PO DAILY PRN 02/23/19 02/23/19 Ranitidine HCl [Zantac] 150 mg PO BID 02/23/19 02/23/19 Simvastatin [Zocor] 10 mg PO HS 02/23/19 02/23/19 metFORMIN HCL [Glucophage] 500 mg PO BID 02/23/19 02/23/19 Previous Rx's Medication Instructions Recorded Acetaminophen Tab [Tylenol Tab] 1 - 2 tab PO Q6H PRN #30 tablet 03/06/19 Allergies Allergy/AdvReac Type Severity Reaction Status Date / Time ciprofloxacin Allergy Unknown Nausea Verified 03/06/19 16:49 dicyclomine HCl [From Bentyl] Allergy Unknown Dyspnea Verified 03/06/19 16:49 latex Allergy Unknown Rash/Hives Verified 03/06/19 16:49 Macrolide Antibiotics Allergy Unknown Nausea Verified 03/06/19 16:49 diphenhydramine HCl Allergy Anaphylaxis Verified 03/06/19 16:49 [From Benadryl] adhesive AdvReac Unknown Itching Verified 03/06/19 16:49 sulfamethoxazole AdvReac Unknown Unknown Verified 03/06/19 16:49 [From Bactrim] trimethoprim [From Bactrim] AdvReac Unknown Unknown Verified 03/06/19 16:49 Review of Systems ROS Statement: Those systems with pertinent positive or pertinent negative responses have been documented in the HPI. ROS Other: All systems not noted in ROS Statement are negative. Past Medical History Past Medical History: Asthma, Chest Pain / Angina, COPD, CVA/TIA, Diabetes Mellitus, GERD/Reflux, Hearing Disorder / Deafness, Hyperlipidemia, Hypertension, Liver Disease, Osteoarthritis (OA), Pneumonia, Seizure Disorder, Sleep Apnea/CPAP/BIPAP Additional Past Medical History / Comment(s): Cyst on kidney, uses cpap (22) History of Any Multi-Drug Resistant Organisms: None Reported Past Surgical History: Heart Catheterization, Orthopedic Surgery Additional Past Surgical History / Comment(s): Cysts removed, left thumb surgery Past Anesthesia/Blood Transfusion Reactions: Motion Sickness, Postoperative Nausea & Vomiting (PONV) Past Psychological History: Anxiety, Bipolar, Depression, Schizophrenia Smoking Status: Current every day smoker Past Alcohol Use History: None Reported, Abuse, Daily, Heavy Past Drug Use History: Marijuana - Past Family History Brother(s) Family Medical History: Diabetes Mellitus Additional Family Medical History / Comment(s): Patient has 2 brothers. One from complications from diabetes. The second is alive with diabetes. Sister(s) Family Medical History: Cancer Additional Family Medical History / Comment(s): Patient has one sister with breast cancer. Patient does not have any children. Father Family Medical History: Cancer Additional Family Medical History / Comment(s): Father in his 40s or 50s from colon cancer. Mother Family Medical History: Cancer Additional Family Medical History / Comment(s): Mother at age 68 from lung cancer. General Exam Limitations: no limitations General appearance: alert, in no apparent distress, other (This is a well- developed, well-nourished adult male patient in no acute distress. Vital signs upon presentation are temperature 97.9F, pulse 89, respirations 18, blood pressure 133/85, pulse ox 97% on room air.) Respiratory exam: Present: normal lung sounds bilaterally. Absent: respiratory distress, wheezes, rales, rhonchi, stridor Cardiovascular Exam: Present: regular rate, normal rhythm, normal heart sounds. Absent: systolic murmur, diastolic murmur, rubs, gallop, clicks Extremities exam: Present: normal inspection, full ROM, normal capillary refill, other (Skin to the upper extremity, right is pink, warm, dry. Cap refills less than 3 seconds. Radial pulses 2+ and equal bilaterally.). Absent: tenderness, pedal edema, joint swelling, calf tenderness Neurological exam: Present: alert, oriented X3, CN II-XII intact Psychiatric exam: Present: normal affect, normal mood Skin exam: Present: warm, dry, intact, normal color. Absent: rash Course Vital Signs 03/06/19 16:47 Temperature 97.9 F Pulse Rate 89 Respiratory 18 Rate Blood Pressure 133/85 O2 Sat by Pulse 97 Oximetry Medical Decision Making - Medical Decision Making 48-year-old male patient presents to the emergency department today for evaluation of right shoulder pain and arm swelling. Physical examination was unremarkable. There is no appreciable swelling, similar to parents to the left arm. Patient had increased pain with range of motion but did have full range of motion intact. Neurovascular status is intact. X-rays were negative. He is instructed to follow-up with his primary care physician for recheck in 1-2 days. Return parameters discussed in detail. He verbalizes understanding and agrees with this plan. - Radiology Data Radiology results: report reviewed, image reviewed 3 views of the right shoulder obtained. Report reviewed in its entirety. Impression by Dr. Cho shows no acute fracture dislocation right shoulder. No significant change from prior. Disposition Clinical Impression: Right shoulder pain Disposition: HOME SELF-CARE Condition: Good Instructions (If sedation given, give patient instructions): Shoulder Pain (ED) Additional Instructions: Continue taking ibuprofen for pain control, Ativan Tylenol. Apply warm moist heat alternating with ice to the shoulder. Perform gentle range of motion exercises. Follow-up with recovery specialist for further evaluation of the shoulder. Return to the emergency department immediately for any new, worsening, or concerning symptoms. Your prescription was sent to [facility]. Prescriptions: Acetaminophen Tab [Tylenol Tab] 1 - 2 tab PO Q6H PRN #30 tablet PRN Reason: Pain Is patient prescribed a controlled substance at d/c from ED?: No Referrals: Wm Randhawa MD [Medical Doctor] - 1-2 days Time of Disposition: 17:28
== END 2019-03-06 17:41 | disposition home or self-care (01) ==
LOC: EC 16:45
DX: M25.511 Pain in right shoulder (principal); E78.5 Hyperlipidemia, unspecified; I10 Essential (primary) hypertension; E11.9 Type 2 diabetes mellitus without complications; K21.9 Gastro-esophageal reflux disease without esophagitis; G47.30 Sleep apnea, unspecified; H91.90 Unspecified hearing loss, unspecified ear; F20.9 Schizophrenia, unspecified; F31.9 Bipolar disorder, unspecified; F41.9 Anxiety disorder, unspecified; F17.200 Nicotine dependence, unspecified, uncomplicated; Z88.1 Allergy status to other antibiotic agents; Z88.2 Allergy status to sulfonamides; Z88.8 Allergy status to other drugs, medicaments and biological substances; Z91.040 Latex allergy status; Z91.048 Other nonmedicinal substance allergy status; Z79.84 Long term (current) use of oral hypoglycemic drugs; Z79.899 Other long term (current) drug therapy; Z95.818 Presence of other cardiac implants and grafts; Z86.73 Personal history of transient ischemic attack (TIA), and cerebral infarction without residual deficits; Z87.39 Personal history of other diseases of the musculoskeletal system and connective tissue; Z99.89 Dependence on other enabling machines and devices
CPT/HCPCS: 99283

== ENCOUNTER 2019-04-12 16:11 | Emergency (ER) | payer MEDICARE, OTHER ==
[2019-04-12 16:19] VITALS: RESP 18
[2019-04-12] MEDS ORDERED: ASPIRIN 81 MG PO STA (17:29)
[2019-04-12 17:55] LABS: Basophils # (A) 0.1 k/uL (0-0.2); Basophils % (A) 1 %; Eosinophils # (A) 0.2 k/uL (0-0.7); Eosinophils % (A) 2 %; HCT 49.4 % (39.0-53.0); HGB 16.9 gm/dL (13.0-17.5); Lymphocytes # (A) 1.9 k/uL (1.0-4.8); Lymphocytes % (A) 24 %; MCH 29.8 pg (25.0-35.0); MCHC 34.2 g/dL (31.0-37.0); MCV 87.1 fL (80.0-100.0); Mean Platelet Volume 6.7; Monocytes # (A) 0.4 k/uL (0-1.0); Monocytes % (A) 6 %; Neutrophils # (A) 5.2 k/uL (1.3-7.7); Neutrophils % (A) 65 %; Platelet Count 224 k/uL (150-450); RBC 5.68 m/uL (4.30-5.90); RDW 13.3 % (11.5-15.5)
[2019-04-12 18:07] LABS: ALT 97 U/L (21-72); AST 43 U/L (17-59); African American GFR (CKD) >90 (>60 ml/min/1.73 sqM); Albumin 4.6 g/dL (3.5-5.0); Alkaline Phosphatase 73 U/L (38-126); Anion Gap 11 mmol/L; Blood Urea Nitrogen 13 mg/dL (9-20); Calcium 9.9 mg/dL (8.4-10.2); Carbon Dioxide 22 mmol/L (22-30); Chloride 104 mmol/L (98-107); D-Dimer 0.59 mg/L FEU (<0.60); Glucose 117 mg/dL (74-99); INR 0.9 (<1.2); Magnesium 1.7 mg/dL (1.6-2.3); Partial Thromboplastin Time 23.5 sec (22.0-30.0); Potassium 3.8 mmol/L (3.5-5.1); Prothrombin Time 9.6 sec (9.0-12.0); Sodium 137 mmol/L (137-145); Total Bilirubin 0.4 mg/dL (0.2-1.3); Total Protein 7.2 g/dL (6.3-8.2)
--- NOTE | 2019-04-12 18:11 | XR ---
EXAMINATION TYPE: XR chest 2V DATE OF EXAM: 04/12/2019 COMPARISON: 01/19/2019 INDICATION: Chest pain TECHNIQUE: Frontal and lateral views of the chest are obtained. FINDINGS: The heart size is normal. The pulmonary vasculature is normal. The lungs are clear. IMPRESSION: 1. No acute pulmonary process.
--- NOTE | 2019-04-12 18:13 | ED ---
Chest Pain HPI - General Chief Complaint: Chest Pain Stated Complaint: chest pain Time Seen by Provider: 04/12/19 17:13 Source: patient Mode of arrival: ambulatory Limitations: no limitations - History of Present Illness Initial Comments: 49-year-old male with history of diabetes, hypertension, and a smoker with clean cardiac catheterization one year prior presents emergency department for evaluation of sharp chest pain indigestion. Patient states he has had occasional sharp chest pain and indigestion for a few weeks. He states that it comes and goes and began again at 10 AM this morning. Patient denies any specific alleviating or aggravating factors. Patient denies shortness of breath he states his breathing is at his baseline. Patient denies any leg swelling but states he has had occasional cramping of the leg b/l. Patient denies any calf swelling redness or masses denies any history of DVT or pulmonary embolism. Patient has a recent travels, active cancer or recent surgical procedures. Patient does not disclose any other complaints at discussed the triage note of syncopal episode patient states he did not pass out. States she was slightly lightheaded today. Patient has no other complaints. Upon arrival patient appears well no signs of acute distress. - Related Data Home Medications Medication Instructions Recorded Confirmed ARIPiprazole [Abilify] 10 mg PO HS 01/19/19 04/12/19 OLANZapine [ZyPREXA] 10 mg PO HS 01/19/19 04/12/19 Ergocalciferol (Vitamin D2) 50,000 unit PO MO 02/23/19 04/12/19 [Vitamin D2] Simvastatin [Zocor] 10 mg PO HS 02/23/19 04/12/19 metFORMIN HCL [Glucophage] 500 mg PO BID 02/23/19 04/12/19 Cholestyramine/Aspartame 4 gm PO BID 04/12/19 04/12/19 [Cholestyramine Light Powder] Fenofibrate 160 mg PO DAILY 04/12/19 04/12/19 Omeprazole 20 mg PO BID 04/12/19 04/12/19 Allergies Allergy/AdvReac Type Severity Reaction Status Date / Time ciprofloxacin Allergy Unknown Nausea Verified 04/12/19 18:02 dicyclomine HCl [From Bentyl] Allergy Unknown Dyspnea Verified 04/12/19 18:02 latex Allergy Unknown Rash/Hives Verified 04/12/19 18:02 Macrolide Antibiotics Allergy Unknown Nausea Verified 04/12/19 18:02 diphenhydramine HCl Allergy Anaphylaxis Verified 04/12/19 18:02 [From Benadryl] adhesive AdvReac Unknown Itching Verified 04/12/19 18:02 sulfamethoxazole AdvReac Unknown Unknown Verified 04/12/19 18:02 [From Bactrim] trimethoprim [From Bactrim] AdvReac Unknown Unknown Verified 04/12/19 18:02 Review of Systems ROS Statement: Those systems with pertinent positive or pertinent negative responses have been documented in the HPI. ROS Other: All systems not noted in ROS Statement are negative. EKG Findings - EKG Comments: EKG Findings:: Ventricular rate 84 bpm, ME interval 140 ms, QRS duration 90 ms, QT/QTC 362/427. Normal sinus with a left axis. Nonspecific ST-T wave abnormality. No ST elevation or depression noted. Past Medical History Past Medical History: Asthma, Chest Pain / Angina, COPD, CVA/TIA, Diabetes Mellitus, GERD/Reflux, Hearing Disorder / Deafness, Hyperlipidemia, Hypertension, Liver Disease, Osteoarthritis (OA), Pneumonia, Seizure Disorder, Sleep Apnea/CPAP/BIPAP Additional Past Medical History / Comment(s): Cyst on kidney, uses cpap (22) History of Any Multi-Drug Resistant Organisms: None Reported Past Surgical History: Heart Catheterization, Orthopedic Surgery Additional Past Surgical History / Comment(s): Cysts removed, left thumb surgery Past Anesthesia/Blood Transfusion Reactions: Motion Sickness, Postoperative Nausea & Vomiting (PONV) Past Psychological History: Anxiety, Bipolar, Depression, Schizophrenia Smoking Status: Current every day smoker Past Alcohol Use History: None Reported, Abuse, Daily, Heavy Past Drug Use History: None Reported, Marijuana - Past Family History Brother(s) Family Medical History: Diabetes Mellitus Additional Family Medical History / Comment(s): Patient has 2 brothers. One from complications from diabetes. The second is alive with diabetes. Sister(s) Family Medical History: Cancer Additional Family Medical History / Comment(s): Patient has one sister with b reast cancer. Patient does not have any children. Father Family Medical History: Cancer Additional Family Medical History / Comment(s): Father in his 40s or 50s from colon cancer. Mother Family Medical History: Cancer Additional Family Medical History / Comment(s): Mother at age 68 from lung cancer. General Exam - General Exam Comments Initial Comments: General: The patient is awake and alert, in no distress, and does not appear acutely ill. Eye: Pupils are equal, round and reactive to light, extra-ocular movements are intact. No nystagmus. There is normal conjunctiva bilaterally. No signs of icterus. Ears, nose, mouth and throat: There are moist mucous membranes and no oral lesions. Neck: The neck is supple, there is no tenderness or JVD. Cardiovascular: There is a regular rate and rhythm. No murmur, rub or gallop is appreciated. Respiratory: Lungs are clear to auscultation, respirations are non-labored, breath sounds are equal. No wheezes, stridor, rales, or rhonchi. Gastrointestinal: Soft, non-distended, non-tender abdomen without masses or organomegaly noted. There is no rebound or guarding present. No CVA tenderness. Bowel sounds are unremarkable. Musculoskeletal: She has pain over the anterior chest wall. Normal ROM, no tenderness. Strength 5/5. Sensation intact. Pulses equal bilaterally 2+. Neurological: A&O x 3. CN II-XII intact grossly, There are no obvious motor or sensory deficits. Coordination appears grossly intact. Speech is normal. Skin: Skin is warm and dry and no rashes or lesions are noted. No calf swelling masses or redness appreciated. Negative Homans bilaterally no lower extremity edema. Psychiatric: Cooperative, appropriate mood & affect, normal judgment. Limitations: no limitations Course Vital Signs 04/12/19 04/12/19 04/12/19 16:13 18:16 19:30 Temperature 98.4 F Pulse Rate 101 H 80 76 Respiratory 18 18 18 Rate Blood Pressure 127/84 109/87 110/86 O2 Sat by Pulse 99 97 95 Oximetry 04/12/19 20:17 Temperature 98.0 F Pulse Rate 79 Respiratory 18 Rate Blood Pressure 118/91 O2 Sat by Pulse 97 Oximetry Chest Pain MDM - MDM 49-year-old male presented for sharp occasional chest pain increasing since 10 AM. Patient also states he feels like he has indigestion. Taking omeprazole times one day. Initial troponin negative. EKG no specific finding. CTA (-) for PE or dissection. Patient does have risk factors for coronary artery disease. Recent cardiac catheterization within the last 12 months. This was reviewed revealing no blockages. I discussed the case with attending provider Dr. Cedillo, we will agreeable with observation of patient for serial troponins. I contacted hospitalist Shital Lambert who recommended discharge if patient had no additional complaints aside from chest discomfort given history and previous cath findings. Patient has no other additional complaints. States pain controlled. Patient discharged appearing well. Disposition Clinical Impression: Atypical chest pain Disposition: HOME SELF-CARE Condition: Good Instructions (If sedation given, give patient instructions): Chest Pain (ED) Additional Instructions: Please use medication as discussed. Please follow-up with family doctor in the next 2 days. Please return to emergency room if the symptoms increase or worsen or for any other concerns. Is patient prescribed a controlled substance at d/c from ED?: No Referrals: [facility] [Primary Care Provider] - 1-2 days Time of Disposition: 20:06
--- NOTE | 2019-04-12 19:49 | CT ---
CT CHEST FOR PULMONARY EMBOLISM. EXAMINATION TYPE: CT angio chest DATE OF EXAM: 04/12/2019 INDICATION: Cough and chest pain CT DLP: 433.7 mGycm, Automated exposure control for dose reduction was used. CONTRAST: Patient injected with 100 mL of Isovue 370. COMPARISON: None TECHNIQUE: CT of the chest is performed on a spiral scan at 2 mm thick sections. Study is performed with intravenous contrast timed for evaluation for pulmonary embolism. This will limit additional po rtions of the evaluation. 3-D MIP images reconstructed by the technologist are reviewed on the compu ter in the coronal and sagittal planes. FINDINGS: No persistent filling defects are evident to suggest an acute pulmonary embolism. No mediastinal or hilar adenopathy enlarged by CT criteria is evident. The ascending aorta diameter at the level of the main pulmonary artery is 3.1 cm. The main pulmonary artery diameter at the bifur cation is 2.7 cm. Lung windows are clear. CT abdomen: Upper abdomen is included within the [id number]. There is a 1.5 cm cyst in the ring striker ior mid right kidney measuring 15 Hounsfield units. There is a large cyst within the anterior right p ortion of the spleen measuring 4.7 cm and 13 Hounsfield units. Liver mass some minimal diminished den sity in relation to the spleen suggesting some fatty infiltration. The adrenal glands are unremarkabl e. The pancreas appears normal. IMPRESSIONS: 1. No acute pulmonary embolism. 2. Splenic cyst. 3. Mild fatty infiltration of the liver.
[2019-04-12 20:18] VITALS: BP 118/91; PULSE 79; TEMP 98
== END 2019-04-12 20:18 | disposition home or self-care (01) ==
LOC: EC 16:11
DX: R07.89 Other chest pain (principal); R25.2 Cramp and spasm; R42 Dizziness and giddiness; E11.9 Type 2 diabetes mellitus without complications; K21.9 Gastro-esophageal reflux disease without esophagitis; H91.90 Unspecified hearing loss, unspecified ear; E78.5 Hyperlipidemia, unspecified; I10 Essential (primary) hypertension; G47.30 Sleep apnea, unspecified; F31.9 Bipolar disorder, unspecified; F20.9 Schizophrenia, unspecified; F17.200 Nicotine dependence, unspecified, uncomplicated; Z88.1 Allergy status to other antibiotic agents; Z88.2 Allergy status to sulfonamides; Z88.8 Allergy status to other drugs, medicaments and biological substances; Z91.040 Latex allergy status; Z91.048 Other nonmedicinal substance allergy status; Z79.84 Long term (current) use of oral hypoglycemic drugs; Z79.899 Other long term (current) drug therapy; Z95.818 Presence of other cardiac implants and grafts; Z99.89 Dependence on other enabling machines and devices
CPT/HCPCS: 36415; 93005; 85379; 83880; 80053; 83735; 84484; 85025; 85610; 85730; 71046; 71275; 99285; Q9967

== ENCOUNTER 2019-04-13 00:31 | Emergency (ER) | payer MEDICARE, OTHER ==
[2019-04-13 00:45] VITALS: RESP 18; TEMP 98
[2019-04-13] MEDS ORDERED: IPRATROPIUM-ALBUTEROL 3 ML NEB INHALATION STA (01:14)
[2019-04-13] MEDS ORDERED: KETOROLAC 30 MG/ML 1 ML VIAL IVP STA (01:14)
[2019-04-13 02:16] LABS: Basophils % (A) 1 %; Eosinophils # (A) 0.2 k/uL (0-0.7); Eosinophils % (A) 3 %; HCT 45.3 % (39.0-53.0); HGB 16.6 gm/dL (13.0-17.5); Lymphocytes # (A) 2.1 k/uL (1.0-4.8); Lymphocytes % (A) 27 %; MCH 31.4 pg (25.0-35.0); MCHC 36.5 g/dL (31.0-37.0); MCV 85.9 fL (80.0-100.0); Mean Platelet Volume 6.3; Monocytes # (A) 0.5 k/uL (0-1.0); Monocytes % (A) 7 %; Neutrophils # (A) 4.8 k/uL (1.3-7.7); Neutrophils % (A) 60 %; Platelet Count 225 k/uL (150-450); RBC 5.27 m/uL (4.30-5.90); RDW 13.1 % (11.5-15.5); WBC 7.9 k/uL (3.8-10.6)
[2019-04-13 02:23] LABS: INR 0.9 (<1.2); Partial Thromboplastin Time 23.5 sec (22.0-30.0); Prothrombin Time 9.7 sec (9.0-12.0)
[2019-04-13 02:29] LABS: ALT 87 U/L (21-72); AST 40 U/L (17-59); African American GFR (CKD) >90 (>60 ml/min/1.73 sqM); Albumin 4.4 g/dL (3.5-5.0); Alkaline Phosphatase 77 U/L (38-126); Anion Gap 13 mmol/L; Blood Urea Nitrogen 11 mg/dL (9-20); Calcium 10.2 mg/dL (8.4-10.2); Carbon Dioxide 21 mmol/L (22-30); Chloride 103 mmol/L (98-107); Glucose 178 mg/dL (74-99); Magnesium 1.7 mg/dL (1.6-2.3); Potassium 3.7 mmol/L (3.5-5.1); Sodium 137 mmol/L (137-145); Total Bilirubin 0.4 mg/dL (0.2-1.3); Total Protein 6.8 g/dL (6.3-8.2)
--- NOTE | 2019-04-13 02:31 | ED ---
General Adult HPI - General Chief complaint: Chest Pain Stated complaint: Chest Pain Time Seen by Provider: 04/13/19 00:49 Source: patient, RN notes reviewed Mode of arrival: wheelchair Limitations: no limitations - History of Present Illness Initial comments: 49-year-old male presents to the emergency department for a chief complaint of chest pain. Patient has a history of COPD, diabetes, hyperlipidemia, hypertension. Patient presents for chest pain for the past day. States it is painful to cough. States it is painful when he presses on his chest. Patient was evaluated previously today in the emergency department and had a negative CTA of the chest as well as a negative troponin. Patient came back tonight because he is still having pain. She had a cardiac catheterization obtained in October 2017 that showed normal coronary arteries with a normal left ventricular end diastolic pressure. - Related Data Home Medications Medication Instructions Recorded Confirmed ARIPiprazole [Abilify] 10 mg PO HS 01/19/19 04/12/19 OLANZapine [ZyPREXA] 10 mg PO HS 01/19/19 04/12/19 Ergocalciferol (Vitamin D2) 50,000 unit PO MO 02/23/19 04/12/19 [Vitamin D2] Simvastatin [Zocor] 10 mg PO HS 02/23/19 04/12/19 metFORMIN HCL [Glucophage] 500 mg PO BID 02/23/19 04/12/19 Cholestyramine/Aspartame 4 gm PO BID 04/12/19 04/12/19 [Cholestyramine Light Powder] Fenofibrate 160 mg PO DAILY 04/12/19 04/12/19 Omeprazole 20 mg PO BID 04/12/19 04/12/19 Allergies Allergy/AdvReac Type Severity Reaction Status Date / Time ciprofloxacin Allergy Unknown Nausea Verified 04/13/19 00:46 dicyclomine HCl [From Bentyl] Allergy Unknown Dyspnea Verified 04/13/19 00:46 latex Allergy Unknown Rash/Hives Verified 04/13/19 00:46 Macrolide Antibiotics Allergy Unknown Nausea Verified 04/13/19 00:46 diphenhydramine HCl Allergy Anaphylaxis Verified 04/13/19 00:46 [From Benadryl] adhesive AdvReac Unknown Itching Verified 04/13/19 00:46 sulfamethoxazole AdvReac Unknown Unknown Verified 04/13/19 00:46 [From Bactrim] trimethoprim [From Bactrim] AdvReac Unknown Unknown Verified 04/13/19 00:46 Review of Systems ROS Statement: Those systems with pertinent positive or pertinent negative responses have been documented in the HPI. ROS Other: All systems not noted in ROS Statement are negative. Past Medical History Past Medical History: Asthma, Chest Pain / Angina, COPD, CVA/TIA, Diabetes Mellitus, GERD/Reflux, Hearing Disorder / Deafness, Hyperlipidemia, Hypertension, Liver Disease, Osteoarthritis (OA), Pneumonia, Seizure Disorder, Sleep Apnea/CPAP/BIPAP Additional Past Medical History / Comment(s): Cyst on kidney, uses cpap (22) History of Any Multi-Drug Resistant Organisms: None Reported Past Surgical History: Heart Catheterization, Orthopedic Surgery Additional Past Surgical History / Comment(s): Cysts removed, left thumb surgery Past Anesthesia/Blood Transfusion Reactions: Motion Sickness, Postoperative Nausea & Vomiting (PONV) Past Psychological History: Anxiety, Bipolar, Depression, Schizophrenia Smoking Status: Current every day smoker Past Alcohol Use History: None Reported, Abuse, Daily, Heavy Past Drug Use History: None Reported, Marijuana - Past Family History Brother(s) Family Medical History: Diabetes Mellitus Additional Family Medical History / Comment(s): Patient has 2 brothers. One from complications from diabetes. The second is alive with diabetes. Sister(s) Family Medical History: Cancer Additional Family Medical History / Comment(s): Patient has one sister with breast cancer. Patient does not have any children. Father Family Medical History: Cancer Additional Family Medical History / Comment(s): Father in his 40s or 50s from colon cancer. Mother Family Medical History: Cancer Additional Family Medical History / Comment(s): Mother at age 68 from lung cancer. General Exam Limitations: no limitations General appearance: alert, in no apparent distress Head exam: Present: atraumatic, normocephalic, normal inspection Eye exam: Present: normal appearance, PERRL, EOMI. Absent: scleral icterus, conjunctival injection, periorbital swelling ENT exam: Present: normal exam, mucous membranes moist Neck exam: Present: normal inspection. Absent: tenderness, meningismus, lymphadenopathy Respiratory exam: Present: wheezes (Minimal wheezing in the lower lung robins), chest wall tenderness (Patient has reproducible anterior chest wall tenderness). Absent: respiratory distress, rales, rhonchi, stridor Cardiovascular Exam: Present: regular rate, normal rhythm, normal heart sounds. Absent: systolic murmur, diastolic murmur, rubs, gallop, clicks GI/Abdominal exam: Present: soft, normal bowel sounds. 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 On exam patient has chest wall tenderness which is rep roducible to palpation. CBC and CMP are unremarkable. Troponin is negative. This is patient's second troponin today and it continues to be negative. Chest x-ray from earlier today showed no acute process. Chest CTA obtained earlier this evening showed no acute pulmonary embolism. Patient had a negative cardiac catheterization in October 2017. Given patient's chest wall pain is reproducible and is worse with movement and coughing pain is consistent with musculoskeletal chest pain. Patient will follow up with primary care in 1-2 days. He will return here if he has any worsening symptoms. - Lab Data Result diagrams: 04/13/19 01:50 04/13/19 01:50 Lab Results 04/13/19 04/13/19 04/13/19 Range/Units 01:50 01:50 01:50 WBC 7.9 (3.8-10.6) k/uL RBC 5.27 (4.30-5.90) m/uL Hgb 16.6 (13.0-17.5) gm/dL Hct 45.3 (39.0-53.0) % MCV 85.9 (80.0-100.0) fL MCH 31.4 (25.0-35.0) pg MCHC 36.5 (31.0-37.0) g/dL RDW 13.1 (11.5-15.5) % Plt Count 225 (150-450) k/uL Neutrophils % 60 % Lymphocytes % 27 % Monocytes % 7 % Eosinophils % 3 % Basophils % 1 % Neutrophils # 4.8 (1.3-7.7) k/uL Lymphocytes # 2.1 (1.0-4.8) k/uL Monocytes # 0.5 (0-1.0) k/uL Eosinophils # 0.2 (0-0.7) k/uL Basophils # 0.0 (0-0.2) k/uL PT 9.7 (9.0-12.0) sec INR 0.9 (<1.2) APTT 23.5 (22.0-30.0) sec Sodium 137 (137-145) mmol/L Potassium 3.7 (3.5-5.1) mmol/L Chloride 103 (98-107) mmol/L Carbon Dioxide 21 L (22-30) mmol/L Anion Gap 13 mmol/L BUN 11 (9-20) mg/dL Creatinine 0.79 (0.66-1.25) mg/dL Est GFR (CKD-EPI)AfAm >90 (>60 ml/min/1.73 sqM) Est GFR (CKD-EPI)NonAf >90 (>60 ml/min/1.73 sqM) Glucose 178 H (74-99) mg/dL Calcium 10.2 (8.4-10.2) mg/dL Magnesium 1.7 (1.6-2.3) mg/dL Total Bilirubin 0.4 (0.2-1.3) mg/dL AST 40 (17-59) U/L ALT 87 H (21-72) U/L Alkaline Phosphatase 77 (38-126) U/L Troponin I (0.000-0.034) ng/mL Total Protein 6.8 (6.3-8.2) g/dL Albumin 4.4 (3.5-5.0) g/dL 04/13/19 Range/Units 01:50 WBC (3.8-10.6) k/uL RBC (4.30-5.90) m/uL Hgb (13.0-17.5) gm/dL Hct (39.0-53.0) % MCV (80.0-100.0) fL MCH (25.0-35.0) pg MCHC (31.0-37.0) g/dL RDW (11.5-15.5) % Plt Count (150-450) k/uL Neutrophils % % Lymphocytes % % Monocytes % % Eosinophils % % Basophils % % Neutrophils # (1.3-7.7) k/uL Lymphocytes # (1.0-4.8) k/uL Monocytes # (0-1.0) k/uL Eosinophils # (0-0.7) k/uL Basophils # (0-0.2) k/uL PT (9.0-12.0) sec INR (<1.2) APTT (22.0-30.0) sec Sodium (137-145) mmol/L Potassium (3.5-5.1) mmol/L Chloride (98-107) mmol/L Carbon Dioxide (22-30) mmol/L Anion Gap mmol/L BUN (9-20) mg/dL Creatinine (0.66-1.25) mg/dL Est GFR (CKD-EPI)AfAm (>60 ml/min/1.73 sqM) Est GFR (CKD-EPI)NonAf (>60 ml/min/1.73 sqM) Glucose (74-99) mg/dL Calcium (8.4-10.2) mg/dL Magnesium (1.6-2.3) mg/dL Total Bilirubin (0.2-1.3) mg/dL AST (17-59) U/L ALT (21-72) U/L Alkaline Phosphatase (38-126) U/L Troponin I <0.012 (0.000-0.034) ng/mL Total Protein (6.3-8.2) g/dL Albumin (3.5-5.0) g/dL When compared to previous EKG there are: no significant change (compared to 04/12/19) Disposition Clinical Impression: Chest wall pain, Costalchondritis Disposition: HOME SELF-CARE Condition: Good Instructions (If sedation given, give patient instructions): Costochondritis (ED) Additional Instructions: Please follow up with primary care in 1-2 days. Return to the emergency department if you have any worsening symptoms. Is patient prescribed a controlled substance at d/c from ED?: No Referrals: [facility] [Primary Care Provider] - 1-2 days Time of Disposition: :20
[2019-04-13 03:38] VITALS: BP 125/80; PULSE 75
== END 2019-04-13 03:35 | disposition home or self-care (01) ==
LOC: EC 00:31
DX: M94.0 Chondrocostal junction syndrome [Tietze] (principal); J44.9 Chronic obstructive pulmonary disease, unspecified; E11.9 Type 2 diabetes mellitus without complications; E78.5 Hyperlipidemia, unspecified; K21.9 Gastro-esophageal reflux disease without esophagitis; I10 Essential (primary) hypertension; G40.909 Epilepsy, unspecified, not intractable, without status epilepticus; G47.30 Sleep apnea, unspecified; F41.9 Anxiety disorder, unspecified; F31.9 Bipolar disorder, unspecified; F20.9 Schizophrenia, unspecified; F17.200 Nicotine dependence, unspecified, uncomplicated; Z79.84 Long term (current) use of oral hypoglycemic drugs; Z79.899 Other long term (current) drug therapy; Z88.1 Allergy status to other antibiotic agents; Z88.2 Allergy status to sulfonamides; Z88.8 Allergy status to other drugs, medicaments and biological substances; Z91.040 Latex allergy status; Z91.048 Other nonmedicinal substance allergy status
CPT/HCPCS: 36415; 94640; 93005; 80053; 83735; 84484; 85025; 85610; 85730; 99285; 96374; J1885

== ENCOUNTER 2019-04-14 20:48 | Emergency (ER) | payer MEDICARE, OTHER ==
[2019-04-14 21:40] LABS: Glucose,Whole Blood 120 mg/dL (75-99)
--- NOTE | 2019-04-14 22:31 | ED ---
Nausea/Vomiting/Diarrhea HPI - General Chief complaint: Nausea/Vomiting/Diarrhea Stated complaint: diarrhea Time Seen by Provider: 04/14/19 21:59 Source: patient Mode of arrival: ambulatory Limitations: no limitations - History of Present Illness Initial comments: 49-year-old male presenting for evaluation of nausea vomiting diarrhea. Patient states he has had nausea and diarrhea for the past 2 days. He states that he had one episode of vomiting today. Patient states that he had some slight discomfort in his chest after vomiting. Patient denies any severe chest pain, denies abdominal pain denies headache dizziness hematemesis melena hematochezia. Patient has no other complaints denies fevers. Remaining review of systems negative. Upon arrival patient appears well signs of acute distress. - Related Data Home Medications Medication Instructions Recorded Confirmed ARIPiprazole [Abilify] 10 mg PO HS 01/19/19 04/14/19 OLANZapine [ZyPREXA] 10 mg PO HS 01/19/19 04/14/19 Ergocalciferol (Vitamin D2) 50,000 unit PO MO 02/23/19 04/14/19 [Vitamin D2] Simvastatin [Zocor] 10 mg PO HS 02/23/19 04/14/19 metFORMIN HCL [Glucophage] 500 mg PO BID 02/23/19 04/14/19 Cholestyramine/Aspartame 4 gm PO BID 04/12/19 04/14/19 [Cholestyramine Light Powder] Fenofibrate 160 mg PO DAILY 04/12/19 04/14/19 Omeprazole 20 mg PO BID 04/12/19 04/14/19 Allergies Allergy/AdvReac Type Severity Reaction Status Date / Time ciprofloxacin Allergy Unknown Nausea Verified 04/14/19 22:41 dicyclomine HCl [From Bentyl] Allergy Unknown Dyspnea Verified 04/14/19 22:41 latex Allergy Unknown Rash/Hives Verified 04/14/19 22:41 Macrolide Antibiotics Allergy Unknown Nausea Verified 04/14/19 22:41 diphenhydramine HCl Allergy Anaphylaxis Verified 04/14/19 22:41 [From Benadryl] adhesive AdvReac Unknown Itching Verified 04/14/19 22:41 sulfamethoxazole AdvReac Unknown Unknown Verified 04/14/19 22:41 [From Bactrim] trimethoprim [From Bactrim] AdvReac Unknown Unknown Verified 04/14/19 22:41 Review of Systems ROS Statement: Those systems with pertinent positive or pertinent negative responses have been documented in the HPI. ROS Other: All systems not noted in ROS Statement are negative. Past Medical History Past Medical History: Asthma, Chest Pain / Angina, COPD, CVA/TIA, Diabetes Mellitus, GERD/Reflux, Hearing Disorder / Deafness, Hyperlipidemia, Hypertension, Liver Disease, Osteoarthritis (OA), Pneumonia, Seizure Disorder, Sleep Apnea/CPAP/BIPAP Additional Past Medical History / Comment(s): Cyst on kidney, uses cpap (22) History of Any Multi-Drug Resistant Organisms: None Reported Past Surgical History: Heart Catheterization, Orthopedic Surgery Additional Past Surgical History / Comment(s): Cysts removed, left thumb surgery Past Anesthesia/Blood Transfusion Reactions: Motion Sickness, Postoperative Nausea & Vomiting (PONV) Past Psychological History: Anxiety, Bipolar, Depression, Schizophrenia Smoking Status: Current every day smoker Past Alcohol Use History: None Reported, Abuse, Daily, Heavy Past Drug Use History: None Reported, Marijuana - Past Family History Brother(s) Family Medical History: Diabetes Mellitus Additional Family Medical History / Comment(s): Patient has 2 brothers. One from complications from diabetes. The second is alive with diabetes. Sister(s) Family Medical History: Cancer Additional Family Medical History / Comment(s): Patient has one sister with breast cancer. Patient does not have any children. Father Family Medical History: Cancer Additional Family Medical History / Comment(s): Father in his 40s or 50s from colon cancer. Mother Family Medical History: Cancer Additional Family Medical History / Comment(s): Mother at age 68 from lung cancer. General Exam - General Exam Comments Initial Comments: General: The patient is awake and alert, in no distress, and does not appear acutely ill. Eye: Pupils are equal, round and reactive to light, extra-ocular movements are intact. No nystagmus. There is normal conjunctiva bilaterally. No signs of icterus. Ears, nose, mouth and throat: There are moist mucous membranes and no oral lesions. Neck: The neck is supple, there is no tenderness or JVD. Cardiovascular: There is a regular rate and rhythm. No murmur, rub or gallop is appreciated. Respiratory: Lungs are clear to auscultation, respirations are non-labored, breath sounds are equal. No wheezes, stridor, rales, or rhonchi. Gastrointestinal: Soft, non-distended, non-tender abdomen without masses or organomegaly noted. There is no rebound or guarding present. No CVA tenderness. Bowel sounds are unremarkable. Musculoskeletal: Normal ROM, no tenderness. Strength 5/5. Sensation intact. Pulses equal bilaterally 2+. Neurological: A&O x 3. CN II-XII intact, There are no obvious motor or sensory deficits. Coordination appears grossly intact. Speech is normal. Skin: Skin is warm and dry and no rashes or lesions are noted. Psychiatric: Cooperative Limitations: no limitations Course Vital Signs 04/14/19 04/15/19 21:07 01:02 Temperature 98.7 F 97.9 F Pulse Rate 76 71 Respiratory 20 18 Rate Blood Pressure 120/78 117/57 O2 Sat by Pulse 98 98 Oximetry Medical Decision Making - Medical Decision Making Lavatory studies unremarkable. Patient appears hydrated examination. No diarrhea while in the emergency department or active vomiting. Patient was discharged with primary care follow-up. Return prefers discussed patient discharged appearing well after discussed the case and care plan with attending provider - Lab Data Result diagrams: 04/14/19 22:35 04/14/19 22:35 Lab Results 04/14/19 04/14/19 04/14/19 Range/Units 21:38 22:35 22:35 WBC 6.9 (3.8-10.6) k/uL RBC 5.04 (4.30-5.90) m/uL Hgb 15.9 (13.0-17.5) gm/dL Hct 43.5 (39.0-53.0) % MCV 86.5 (80.0-100.0) fL MCH 31.5 (25.0-35.0) pg MCHC 36.5 (31.0-37.0) g/dL RDW 13.2 (11.5-15.5) % Plt Count 215 (150-450) k/uL Neutrophils % 63 % Lymphocytes % 26 % Monocytes % 5 % Eosinophils % 4 % Basophils % 0 % Neutrophils # 4.4 (1.3-7.7) k/uL Lymphocytes # 1.8 (1.0-4.8) k/uL Monocytes # 0.4 (0-1.0) k/uL Eosinophils # 0.2 (0-0.7) k/uL Basophils # 0.0 (0-0.2) k/uL Sodium 139 (137-145) mmol/L Potassium 3.8 (3.5-5.1) mmol/L Chloride 109 H (98-107) mmol/L Carbon Dioxide 22 (22-30) mmol/L Anion Gap 8 mmol/L BUN 15 (9-20) mg/dL Creatinine 0.72 (0.66-1.25) mg/dL Est GFR (CKD-EPI)AfAm >90 (>60 ml/min/1.73 sqM) Est GFR (CKD-EPI)NonAf >90 (>60 ml/min/1.73 sqM) Glucose 109 H (74-99) mg/dL POC Glucose (mg/dL) 120 H (75-99) mg/dL POC Glu Assisted Living Nursing Director ID Mayco Jacobs Calcium 9.9 (8.4-10.2) mg/dL Total Bilirubin 0.3 (0.2-1.3) mg/dL AST 31 (17-59) U/L ALT 76 H (21-72) U/L Alkaline Phosphatase 84 (38-126) U/L Troponin I (0.000-0.034) ng/mL Total Protein 6.5 (6.3-8.2) g/dL Albumin 4.0 (3.5-5.0) g/dL Amylase 43 (30-110) U/L Lipase 105 (23-300) U/L Urine Color Urine Appearance (Clear) Urine pH (5.0-8.0) Ur Specific [place] (1.001-1.035) Urine Protein (Negative) Urine Glucose (UA) (Negative) Urine Ketones (Negative) Urine Blood (Negative) Urine Nitrite (Negative) Urine Bilirubin (Negative) Urine Urobilinogen (<2.0) mg/dL Ur Leukocyte Esterase (Negative) 04/14/19 04/14/19 Range/Units 22:35 22:35 WBC (3.8-10.6) k/uL RBC (4.30-5.90) m/uL Hgb (13.0-17.5) gm/dL Hct (39.0-53.0) % MCV (80.0-100.0) fL MCH (25.0-35.0) pg MCHC (31.0-37.0) g/dL RDW (11.5-15.5) % Plt Count (150-450) k/uL Neutrophils % % Lymphocytes % % Monocytes % % Eosinophils % % Basophils % % Neutrophils # (1.3-7.7) k/uL Lymphocytes # (1.0-4.8) k/uL Monocytes # (0-1.0) k/uL Eosinophils # (0-0.7) k/uL Basophils # (0-0.2) k/uL Sodium (137-145) mmol/L Potassium (3.5-5.1) mmol/L Chloride (98-107) mmol/L Carbon Dioxide (22-30) mmol/L Anion Gap mmol/L BUN (9-20) mg/dL Creatinine (0.66-1.25) mg/dL Est GFR (CKD-EPI)AfAm (>60 ml/min/1.73 sqM) Est GFR (CKD-EPI)NonAf (>60 ml/min/1.73 sqM) Glucose (74-99) mg/dL POC Glucose (mg/dL) (75-99) mg/dL POC Glu Assisted Living Nursing Director ID Calcium (8.4-10.2) mg/dL Total Bilirubin (0.2-1.3) mg/dL AST (17-59) U/L ALT (21-72) U/L Alkaline Phosphatase (38-126) U/L Troponin I <0.012 (0.000-0.034) ng/mL Total Protein (6.3-8.2) g/dL Albumin (3.5-5.0) g/dL Amylase (30-110) U/L Lipase (23-300) U/L Urine Color Yellow Urine Appearance Clear (Clear) Urine pH 6.5 (5.0-8.0) Ur Specific [place] 1.028 (1.001-1.035) Urine Protein Trace H (Negative) Urine Glucose (UA) 1+ H (Negative) Urine Ketones Negative (Negative) Urine Blood Negative (Negative) Urine Nitrite Negative (Negative) Urine Bilirubin Negative (Negative) Urine Urobilinogen 3.0 (<2.0) mg/dL Ur Leukocyte Esterase Negative (Negative) Disposition Clinical Impression: Diarrhea, Nausea Disposition: HOME SELF-CARE Condition: Good Instructions (If sedation given, give patient instructions): Acute Nausea and Vomiting (ED), Acute Diarrhea (ED) Additional Instructions: Please use medication as discussed. Please follow-up with family doctor in the next 2 days. Please return to emergency room if the symptoms increase or worsen or for any other concerns. Is patient prescribed a controlled substance at d/c from ED?: No Referrals: [facility] [Primary Care Provider] - 1-2 days Time of Disposition: 00:36
[2019-04-14] MEDS ORDERED: SODIUM CHLORIDE 0.9% 1,000 ML IV STA (22:50)
[2019-04-14 23:09] LABS: Basophils % (A) 0 %; Eosinophils # (A) 0.2 k/uL (0-0.7); Eosinophils % (A) 4 %; HCT 43.5 % (39.0-53.0); HGB 15.9 gm/dL (13.0-17.5); Lymphocytes # (A) 1.8 k/uL (1.0-4.8); Lymphocytes % (A) 26 %; MCH 31.5 pg (25.0-35.0); MCHC 36.5 g/dL (31.0-37.0); MCV 86.5 fL (80.0-100.0); Monocytes # (A) 0.4 k/uL (0-1.0); Monocytes % (A) 5 %; Neutrophils # (A) 4.4 k/uL (1.3-7.7); Neutrophils % (A) 63 %; Platelet Count 215 k/uL (150-450); RBC 5.04 m/uL (4.30-5.90); RDW 13.2 % (11.5-15.5); WBC 6.9 k/uL (3.8-10.6)
[2019-04-14 23:10] LABS: Appearance,Urine Clear (Clear); Bilirubin,Urine Negative (Negative); Blood,Urine Negative (Negative); Color,Urine Yellow; Glucose,Urine (UA) 1+ (Negative); Ketones,Urine Negative (Negative); Leukocyte Esterase,Urine Negative (Negative); Nitrite,Urine Negative (Negative); PH, Urine 6.5 (5.0-8.0); Protein,Urine Trace (Negative); Specific Gravity,Urine 1.028 (1.001-1.035)
[2019-04-14 23:23] LABS: ALT 76 U/L (21-72); AST 31 U/L (17-59); African American GFR (CKD) >90 (>60 ml/min/1.73 sqM); Alkaline Phosphatase 84 U/L (38-126); Amylase 43 U/L (30-110); Anion Gap 8 mmol/L; Blood Urea Nitrogen 15 mg/dL (9-20); Calcium 9.9 mg/dL (8.4-10.2); Carbon Dioxide 22 mmol/L (22-30); Chloride 109 mmol/L (98-107); Glucose 109 mg/dL (74-99); Non-African American GFR(CKD) >90 (>60 ml/min/1.73 sqM); Potassium 3.8 mmol/L (3.5-5.1); Sodium 139 mmol/L (137-145); Total Bilirubin 0.3 mg/dL (0.2-1.3); Total Protein 6.5 g/dL (6.3-8.2)
[2019-04-15 01:03] VITALS: BP 117/57; PULSE 71; RESP 18; TEMP 97.9
== END 2019-04-15 01:03 | disposition home or self-care (01) ==
LOC: EC 20:48
DX: R19.7 Diarrhea, unspecified (principal); R11.0 Nausea; F20.9 Schizophrenia, unspecified; F41.9 Anxiety disorder, unspecified; F31.9 Bipolar disorder, unspecified; E78.5 Hyperlipidemia, unspecified; E11.9 Type 2 diabetes mellitus without complications; K21.9 Gastro-esophageal reflux disease without esophagitis; I25.2 Old myocardial infarction; I10 Essential (primary) hypertension; G47.30 Sleep apnea, unspecified; F17.200 Nicotine dependence, unspecified, uncomplicated; F10.10 Alcohol abuse, uncomplicated; Z79.84 Long term (current) use of oral hypoglycemic drugs; Z79.899 Other long term (current) drug therapy; Z88.1 Allergy status to other antibiotic agents; Z88.8 Allergy status to other drugs, medicaments and biological substances; Z88.2 Allergy status to sulfonamides; Z91.040 Latex allergy status; Z91.048 Other nonmedicinal substance allergy status; Z99.89 Dependence on other enabling machines and devices; Z86.73 Personal history of transient ischemic attack (TIA), and cerebral infarction without residual deficits
CPT/HCPCS: 36415; 80053; 81003; 82150; 83690; 84484; 85025; 93005; 96360; 99284

== ENCOUNTER 2019-04-30 14:12 | Emergency (ER) | payer MEDICARE, OTHER ==
[2019-04-30 14:18] VITALS: RESP 16; TEMP 98.2
[2019-04-30] MEDS ORDERED: ASPIRIN 81 MG PO STA (14:38)
[2019-04-30] MEDS ORDERED: FAMOTIDINE 20 MG/2 ML VIAL IV STA (14:38)
[2019-04-30] MEDS ORDERED: ONDANSETRON 4 MG/2 ML VIAL IVP STA (14:38)
[2019-04-30] MEDS ORDERED: SODIUM CHLORIDE 0.9% 1,000 ML IV STA (14:38)
--- NOTE | 2019-04-30 14:40 | ED ---
Chest Pain HPI - General Chief Complaint: Chest Pain Stated Complaint: Abd pain Time Seen by Provider: 04/30/19 14:23 Source: patient Mode of arrival: ambulatory Limitations: no limitations - History of Present Illness Initial Comments: Patient is a 49-year-old male with history of COPD this presenting to the emergency department with chief complaint of chest pain and abdominal pain. Patient reports right-sided chest pain without any radiation to begin early this morning. Patient reports a pain is sharp in nature and appears to be exacerbated with adduction of the right arm. Patient reports the pain is reproducible with palpation. Patient does report shortness of breath but states that is his baseline due to his COPD. Patient denies any headaches or blurry vision. Patient does report left upper quadrant abdominal pain that feels more like a burning sensation and is constant. Patient reports this has been ongoing for about a week with intermittent nausea but no vomiting. Patient reports regular bowel movements. Patient doesn't have any increased urgency, frequency or dysuria. Patient denies any recent fevers night sweats or chills. Patient denies any diaphoretic episodes. - Related Data Home Medications Medication Instructions Recorded Confirmed ARIPiprazole [Abilify] 10 mg PO HS 01/19/19 04/30/19 OLANZapine [ZyPREXA] 10 mg PO HS 01/19/19 04/30/19 Ergocalciferol (Vitamin D2) 50,000 unit PO MO 02/23/19 04/30/19 [Vitamin D2] Simvastatin [Zocor] 10 mg PO HS 02/23/19 04/30/19 Cholestyramine/Aspartame 4 gm PO BID 04/12/19 04/30/19 [Cholestyramine Light Powder] Fenofibrate 160 mg PO DAILY 04/12/19 04/30/19 Omeprazole 20 mg PO BID 04/12/19 04/30/19 Albuterol Sulfate [Proair 2 puff PO RT-Q6H PRN 04/30/19 04/30/19 Respiclick] Ondansetron HCl [Zofran] 4 mg PO DAILY PRN 04/30/19 04/30/19 Ranitidine HCl 150 mg PO BID 04/30/19 04/30/19 Tamsulosin HCl [Flomax] 0.4 mg PO DAILY 04/30/19 04/30/19 metFORMIN HCL 1,000 mg PO BID 04/30/19 04/30/19 Previous Rx's Medication Instructions Recorded Famotidine [Pepcid] 20 mg PO BID #10 tablet 04/30/19 Allergies Allergy/AdvReac Type Severity Reaction Status Date / Time ciprofloxacin Allergy Unknown Nausea Verified 04/30/19 15:04 dicyclomine HCl [From Bentyl] Allergy Unknown Dyspnea Verified 04/30/19 15:04 latex Allergy Unknown Rash/Hives Verified 04/30/19 15:04 Macrolide Antibiotics Allergy Unknown Nausea Verified 04/30/19 15:04 diphenhydramine HCl Allergy Anaphylaxis Verified 04/30/19 15:04 [From Benadryl] adhesive AdvReac Unknown Itching Verified 04/30/19 15:04 sulfamethoxazole AdvReac Unknown Unknown Verified 04/30/19 15:04 [From Bactrim] trimethoprim [From Bactrim] AdvReac Unknown Unknown Verified 04/30/19 15:04 Review of Systems ROS Statement: Those systems with pertinent positive or pertinent negative responses have been documented in the HPI. ROS Other: All systems not noted in ROS Statement are negative. EKG Findings - EKG Comments: EKG Findings:: Normal sinus rhythm, left axis deviation, no ST changes. Ventricular rate 70, RI interval 140, QRS duration 96, QT/QTc 400/432 Past Medical History Past Medical History: Asthma, Chest Pain / Angina, COPD, CVA/TIA, Diabetes Mellitus, GERD/Reflux, Hearing Disorder / Deafness, Hyperlipidemia, Hypertension, Liver Disease, Osteoarthritis (OA), Pneumonia, Seizure Disorder, Sleep Apnea/CPAP/BIPAP Additional Past Medical History / Comment(s): Cyst on kidney, uses cpap (22) History of Any Multi-Drug Resistant Organisms: None Reported Past Surgical History: Heart Catheterization, Orthopedic Surgery Additional Past Surgical History / Comment(s): Cysts removed, left thumb surgery Past Anesthesia/Blood Transfusion Reactions: Motion Sickness, Postoperative Nausea & Vomiting (PONV) Past Psychological History: Anxiety, Bipolar, Depression, Schizophrenia Smoking Status: Current every day smoker Past Alcohol Use History: None Reported, Abuse, Daily, Heavy Past Drug Use History: None Reported, Marijuana - Past Family History Brother(s) Family Medical History: Diabetes Mellitus Additional Family Medical History / Comment(s): Patient has 2 brothers. One from complications from diabetes. The second is alive with diabetes. Sister(s) Family Medical History: Cancer Additional Family Medical History / Comment(s): Patient has one sister with breast cancer. Patient does not have any children. Father Family Medical History: Cancer Additional Family Medical History / Comment(s): Father in his 40s or 50s from colon cancer. Mother Family Medical History: Cancer Additional Family Medical History / Comment(s): Mother at age 68 from lung cancer. General Exam Limitations: no limitations General appearance: alert, in no apparent distress Head exam: Present: atraumatic, normocephalic, normal inspection Eye exam: Present: normal appearance, PERRL, EOMI Pupils: Present: normal accommodation ENT exam: Present: normal exam, normal oropharynx, mucous membranes moist, TM's normal bilaterally, normal external ear exam Neck exam: Present: normal inspection, full ROM. Absent: tenderness, lymphadenopathy Respiratory exam: Present: normal lung sounds bilaterally, chest wall tenderness (Right-sided chest wall tenderness with palpation). Absent: respiratory distress, wheezes, rales Cardiovascular Exam: Present: regular rate, normal rhythm, normal heart sounds GI/Abdominal exam: Present: soft, distended, tenderness (Left upper quadrant/epigastric region), normal bowel sounds. 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 Labs are unremarkable. Negative troponin. EKG shows no ST changes with T-wave inversions. It appears very similar to the last one. Chest x-ray is unremarkable. Physical examination is only indicative of possible chest pain on the right side which appears to be musculoskeletal in nature and not cardiac. The left upper quadrant/epigastric pain is most likely gastritis considering the patient has some abdominal bloating. Although, patient is having normal bowel movements daily. I'm not concerned for an obstruction. Patient is well-known to the ED and comes for the exact same symptoms. At this point, patient will not be admitted for serial troponins. Patient will be discharged with Zofran, Pepcid and Tylenol 3 starter pack. Strict return parameters were thoroughly discussed with patient was understanding and agreeable. Case discussed physician. Disposition Clinical Impression: Chest wall syndrome, Gastritis Disposition: HOME SELF-CARE Condition: Stable Instructions (If sedation given, give patient instructions): Chest Pain (ED) Additional Instructions: Please follow with primary care. Alternate between Tylenol and ibuprofen for pain control. Please return to emergency department since worsen. Prescriptions: Famotidine [Pepcid] 20 mg PO BID #10 tablet Is patient prescribed a controlled substance at d/c from ED?: No Referrals: [facility] [Primary Care Provider] - 1-2 days Time of Disposition: 16:27
[2019-04-30 15:00] LABS: Basophils % (A) 0 %; Eosinophils # (A) 0.2 k/uL (0-0.7); Eosinophils % (A) 3 %; HCT 43.5 % (39.0-53.0); HGB 15.2 gm/dL (13.0-17.5); Lymphocytes # (A) 1.5 k/uL (1.0-4.8); Lymphocytes % (A) 21 %; MCH 30.5 pg (25.0-35.0); MCHC 34.9 g/dL (31.0-37.0); MCV 87.6 fL (80.0-100.0); Mean Platelet Volume 6.3; Monocytes # (A) 0.4 k/uL (0-1.0); Monocytes % (A) 5 %; Neutrophils # (A) 4.8 k/uL (1.3-7.7); Neutrophils % (A) 68 %; Platelet Count 206 k/uL (150-450); RBC 4.97 m/uL (4.30-5.90); WBC 7.1 k/uL (3.8-10.6)
--- NOTE | 2019-04-30 15:06 | XR ---
EXAMINATION TYPE: XR chest 2V DATE OF EXAM: 04/30/2019 COMPARISON: 04/12/2019 HISTORY: Chest pain TECHNIQUE: Frontal and lateral views of the chest are obtained. FINDINGS: Heart and mediastinum are normal. Lungs are clear. Diaphragm is normal. There are chest le ads. Bony thorax is intact. IMPRESSION: No cardiopulmonary disease. No change.
[2019-04-30 15:11] LABS: INR 0.9 (<1.2); Partial Thromboplastin Time 22.7 sec (22.0-30.0); Prothrombin Time 9.6 sec (9.0-12.0)
[2019-04-30 15:12] LABS: ALT 98 U/L (21-72); AST 48 U/L (17-59); African American GFR (CKD) >90 (>60 ml/min/1.73 sqM); Albumin 4.4 g/dL (3.5-5.0); Alkaline Phosphatase 73 U/L (38-126); Anion Gap 10 mmol/L; Blood Urea Nitrogen 7 mg/dL (9-20); Calcium 9.7 mg/dL (8.4-10.2); Carbon Dioxide 22 mmol/L (22-30); Chloride 108 mmol/L (98-107); Glucose 123 mg/dL (74-99); Magnesium 1.6 mg/dL (1.6-2.3); Potassium 3.7 mmol/L (3.5-5.1); Sodium 140 mmol/L (137-145); Total Bilirubin 0.3 mg/dL (0.2-1.3); Total Protein 6.8 g/dL (6.3-8.2)
[2019-04-30 16:42] VITALS: BP 109/84; PULSE 67
== END 2019-04-30 16:40 | disposition home or self-care (01) ==
LOC: EC 14:12
DX: K29.70 Gastritis, unspecified, without bleeding (principal); R07.1 Chest pain on breathing; J44.9 Chronic obstructive pulmonary disease, unspecified; I10 Essential (primary) hypertension; E11.9 Type 2 diabetes mellitus without complications; E78.5 Hyperlipidemia, unspecified; F41.9 Anxiety disorder, unspecified; F31.9 Bipolar disorder, unspecified; F20.9 Schizophrenia, unspecified; G40.909 Epilepsy, unspecified, not intractable, without status epilepticus; G47.30 Sleep apnea, unspecified; F17.200 Nicotine dependence, unspecified, uncomplicated; K21.9 Gastro-esophageal reflux disease without esophagitis; Z79.84 Long term (current) use of oral hypoglycemic drugs; Z79.899 Other long term (current) drug therapy; Z88.1 Allergy status to other antibiotic agents; Z88.2 Allergy status to sulfonamides; Z91.040 Latex allergy status; Z91.048 Other nonmedicinal substance allergy status; Z88.8 Allergy status to other drugs, medicaments and biological substances; Z86.73 Personal history of transient ischemic attack (TIA), and cerebral infarction without residual deficits; Z99.89 Dependence on other enabling machines and devices
CPT/HCPCS: 36415; 93005; 80053; 83735; 84484; 85025; 85610; 85730; 71046; 99285; 96374; 96375; 96361; J2405

== ENCOUNTER 2019-05-11 16:14 | Emergency (ER) | payer MEDICARE, OTHER ==
[2019-05-11 16:20] VITALS: RESP 16
[2019-05-11] MEDS ORDERED: KETOROLAC 60 MG/2 ML VIAL IM STA (16:59)
[2019-05-11] MEDS ORDERED: ACETAMINOPHEN TAB 500 MG TAB PO STA (16:59)
--- NOTE | 2019-05-11 17:00 | ED ---
Extremity Problem HPI - General Chief complaint: Extremity Problem,Nontraumatic Stated complaint: Shoulder pain, chest pain Time Seen by Provider: 05/11/19 16:23 Source: patient, RN notes reviewed, old records reviewed Mode of arrival: ambulatory Limitations: no limitations - History of Present Illness Initial comments: This is a 49-year-old male the ER for evaluation on this facility for psychiatric illness and some chest pain issues. Patient complaining of right shoulder pain today. Worse when he moves the shoulder. No injury or trauma noted. Denying any chest pain or shortness of breath MD Complaint: extremity pain (r shoulder) -: days(s) (2) Location: right, upper extremity (shoulder) -: Yes arthralgia, No associated chest pain Radiation: none Severity scale (1-10): 3 Quality: aching Consistency: intermittent Improves with: nothing Worsens with: palpation, other (moving) Associated Symptoms: denies other symptoms - Related Data Home Medications Medication Instructions Recorded Confirmed ARIPiprazole [Abilify] 10 mg PO HS 01/19/19 04/30/19 OLANZapine [ZyPREXA] 10 mg PO HS 01/19/19 04/30/19 Ergocalciferol (Vitamin D2) 50,000 unit PO MO 02/23/19 04/30/19 [Vitamin D2] Simvastatin [Zocor] 10 mg PO HS 02/23/19 04/30/19 Cholestyramine/Aspartame 4 gm PO BID 04/12/19 04/30/19 [Cholestyramine Light Powder] Fenofibrate 160 mg PO DAILY 04/12/19 04/30/19 Omeprazole 20 mg PO BID 04/12/19 04/30/19 Albuterol Sulfate [Proair 2 puff PO RT-Q6H PRN 04/30/19 04/30/19 Respiclick] Ondansetron HCl [Zofran] 4 mg PO DAILY PRN 04/30/19 04/30/19 Ranitidine HCl 150 mg PO BID 04/30/19 04/30/19 Tamsulosin HCl [Flomax] 0.4 mg PO DAILY 04/30/19 04/30/19 metFORMIN HCL 1,000 mg PO BID 04/30/19 04/30/19 Previous Rx's Medication Instructions Recorded Famotidine [Pepcid] 20 mg PO BID #10 tablet 04/30/19 Allergies Allergy/AdvReac Type Severity Reaction Status Date / Time ciprofloxacin Allergy Unknown Nausea Verified 05/11/19 16:20 dicyclomine HCl [From Bentyl] Allergy Unknown Dyspnea Verified 05/11/19 16:20 latex Allergy Unknown Rash/Hives Verified 05/11/19 16:20 Macrolide Antibiotics Allergy Unknown Nausea Verified 05/11/19 16:20 diphenhydramine HCl Allergy Anaphylaxis Verified 05/11/19 16:20 [From Benadryl] adhesive AdvReac Unknown Itching Verified 05/11/19 16:20 sulfamethoxazole AdvReac Unknown Unknown Verified 05/11/19 16:20 [From Bactrim] trimethoprim [From Bactrim] AdvReac Unknown Unknown Verified 05/11/19 16:20 Review of Systems ROS Statement: Those systems with pertinent positive or pertinent negative responses have been documented in the HPI. ROS Other: All systems not noted in ROS Statement are negative. Past Medical History Past Medical History: Asthma, Chest Pain / Angina, COPD, CVA/TIA, Diabetes Mellitus, GERD/Reflux, Hearing Disorder / Deafness, Hyperlipidemia, Hyperten kat, Liver Disease, Osteoarthritis (OA), Pneumonia, Seizure Disorder, Sleep Apnea/CPAP/BIPAP Additional Past Medical History / Comment(s): Cyst on kidney, uses cpap (22) History of Any Multi-Drug Resistant Organisms: None Reported Past Surgical History: Heart Catheterization, Orthopedic Surgery Additional Past Surgical History / Comment(s): Cysts removed, left thumb surgery Past Anesthesia/Blood Transfusion Reactions: Motion Sickness, Postoperative Nausea & Vomiting (PONV) Past Psychological History: Anxiety, Bipolar, Depression, Schizophrenia Smoking Status: Current every day smoker Past Alcohol Use History: None Reported, Abuse, Daily, Heavy Past Drug Use History: None Reported, Marijuana - Past Family History Brother(s) Family Medical History: Diabetes Mellitus Additional Family Medical History / Comment(s): Patient has 2 brothers. One from complications from diabetes. The second is alive with diabetes. Sister(s) Family Medical History: Cancer Additional Family Medical History / Comment(s): Patient has one sister with breast cancer. Patient does not have any children. Father Family Medical History: Cancer Additional Family Medical History / Comment(s): Father in his 40s or 50s from colon cancer. Mother Family Medical History: Cancer Additional Family Medical History / Comment(s): Mother at age 68 from lung cancer. General Exam - General Exam Comments Initial Comments: Patient does have right shoulder tenderness Limitations: no limitations General appearance: alert, in no apparent distress Head exam: Present: atraumatic, normocephalic, normal inspection Eye exam: Present: normal appearance, PERRL, EOMI. Absent: scleral icterus, conjunctival injection, periorbital swelling ENT exam: Present: normal exam, mucous membranes moist Neck exam: Present: normal inspection. Absent: tenderness, meningismus, lymphadenopathy Respiratory exam: Present: normal lung sounds bilaterally. Absent: respiratory distress, wheezes, rales, rhonchi, stridor Cardiovascular Exam: Present: regular rate, normal rhythm, normal heart sounds. Absent: systolic murmur, diastolic murmur, rubs, gallop, clicks GI/Abdominal exam: Present: soft, normal bowel sounds. Absent: distended, tenderness, guarding, rebound, rigid Extremities exam: Present: normal inspection, normal capillary refill. Absent: full ROM (Patient has full passive range of motion states he's having difficulty moving his shoulder but is able to touch right arm to left shoulder able to touch his forehead), tenderness, pedal edema, joint swelling, calf tenderness Back exam: Present: normal inspection Neurological exam: Present: alert, oriented X3, CN II-XII intact Psychiatric exam: Present: normal affect, normal mood Skin exam: Present: warm, dry, intact, normal color. Absent: rash Course Vital Signs 05/11/19 05/11/19 16:18 18:33 Temperature 98.5 F 98 F Pulse Rate 97 67 Respiratory 16 16 Rate Blood Pressure 119/93 126/74 O2 Sat by Pulse 97 95 Oximetry - Reevaluation(s) Reevaluation #1: 05/11/19 17:12 Medical records reviewed Reevaluation #2: 05/11/19 18:59 On reevaluation patient denies any complaints Medical Decision Making - Medical Decision Making 49 male the ER for evaluation of right shoulder pain, no trauma noted. X-rays are negative and patient can be discharged home - EKG Data -: EKG Interpreted by Me (EKG shows sinus rhythm rate of 85, NH 124, QRS 94 2, QTc 447) - Radiology Data Radiology results: report reviewed (Chest x-ray right shoulder x-ray negative for acute disease), image reviewed Disposition Clinical Impression: Right shoulder pain Disposition: HOME SELF-CARE Condition: Good Instructions (If sedation given, give patient instructions): Shoulder Sprain (ED), Shoulder Pain (ED) Is patient prescribed a controlled substance at d/c from ED?: No Referrals: [facility] [Primary Care Provider] - 1-2 days
--- NOTE | 2019-05-11 18:03 | XR ---
EXAMINATION TYPE: XR chest 2V DATE OF EXAM: 05/11/2019 COMPARISON: NONE HISTORY: Right sided chest pain TECHNIQUE: Frontal and lateral views of the chest are obtained. FINDINGS: Heart is normal. Lungs are clear of consolidation. There is no pleural effusion. There are no hilar masses. Bony thorax is intact. IMPRESSION: No active cardiopulmonary disease. Normal heart. No change.
--- NOTE | 2019-05-11 18:05 | XR ---
EXAMINATION TYPE: XR shoulder complete RT DATE OF EXAM: 05/11/2019 COMPARISON: 12/11/2012 HISTORY: Shoulder pain TECHNIQUE: 3 views FINDINGS: There is no sign of fracture nor dislocation. Joint spaces are normal. There are no patholo gic calcifications. IMPRESSION: Negative right shoulder exam. No change.
[2019-05-11 18:35] VITALS: BP 126/74; PULSE 67; TEMP 98
== END 2019-05-11 19:07 | disposition home or self-care (01) ==
LOC: EC 16:14
DX: M25.511 Pain in right shoulder (principal); J44.9 Chronic obstructive pulmonary disease, unspecified; E11.9 Type 2 diabetes mellitus without complications; K21.9 Gastro-esophageal reflux disease without esophagitis; H91.90 Unspecified hearing loss, unspecified ear; E78.5 Hyperlipidemia, unspecified; I10 Essential (primary) hypertension; F31.9 Bipolar disorder, unspecified; F20.9 Schizophrenia, unspecified; F41.9 Anxiety disorder, unspecified; G47.30 Sleep apnea, unspecified; F17.200 Nicotine dependence, unspecified, uncomplicated; Z88.1 Allergy status to other antibiotic agents; Z88.2 Allergy status to sulfonamides; Z88.8 Allergy status to other drugs, medicaments and biological substances; Z91.040 Latex allergy status; Z91.048 Other nonmedicinal substance allergy status; Z79.84 Long term (current) use of oral hypoglycemic drugs; Z79.899 Other long term (current) drug therapy; Z99.89 Dependence on other enabling machines and devices
CPT/HCPCS: 93005; 73030; 71046; 99284; 96372; J1885

== ENCOUNTER 2019-05-22 15:39 | Emergency (ER) | payer MEDICARE, OTHER ==
[2019-05-22 16:04] VITALS: BP 120/72; PULSE 91; RESP 20; TEMP 98.7
[2019-05-22] MEDS ORDERED: IBUPROFEN 600 MG TAB PO STA (16:37)
[2019-05-22] MEDS ORDERED: ONDANSETRON ODT 4 MG TAB PO STA (16:37)
[2019-05-22] MEDS ORDERED: ACETAMINOPHEN TAB 500 MG TAB PO STA (16:37)
--- NOTE | 2019-05-22 16:39 | ED ---
Abdominal Pain HPI - General Chief Complaint: Abdominal Pain Stated Complaint: abd pain Time Seen by Provider: 05/22/19 16:11 Source: patient, RN notes reviewed, old records reviewed Mode of arrival: ambulatory Limitations: no limitations - History of Present Illness Initial Comments: This is a 49-year-old here for evaluation of abdominal pain. Patient's [facility] facility for multiple ER visits. Patient presents today for evaluation of dull pain epigastric abdominal pain and multiple ER visits the last month for similar complaint. Patient states he just feels like he has some burning especially worse when he eats. No fevers. Mild nausea no vomiting. No shortness of breath, no significant illness noted. No modifying factors for patient's symptoms MD Complaint: abdominal pain -: unknown Location: diffuse, periumbilical, epigastric Radiation: epigastric, suprapubic Migration to: bilateral flank Severity scale (1-10): 7 Quality: aching Consistency: constant, intermittent, now resolved Improves With: nothing Worsens With: nothing Associated Symptoms: nausea Treatments Prior to Arrival: NSAIDs - Related Data Home Medications Medication Instructions Recorded Confirmed ARIPiprazole [Abilify] 10 mg PO HS 01/19/19 05/22/19 OLANZapine [ZyPREXA] 10 mg PO HS 01/19/19 05/22/19 Ergocalciferol (Vitamin D2) 50,000 unit PO MO 02/23/19 05/22/19 [Vitamin D2] Cholestyramine/Aspartame 4 gm PO BID 04/12/19 05/22/19 [Cholestyramine Light Powder] Fenofibrate 160 mg PO DAILY 04/12/19 05/22/19 Omeprazole 20 mg PO BID 04/12/19 05/22/19 Albuterol Sulfate [Proair 2 puff PO RT-Q6H PRN 04/30/19 05/22/19 Respiclick] Ondansetron HCl [Zofran] 4 mg PO DAILY PRN 04/30/19 05/22/19 metFORMIN HCL 1,000 mg PO BID 04/30/19 05/22/19 Hydrocortisone Cream 1 applic TOPICAL BID 05/22/19 05/22/19 [Hydrocortisone 2.5% Cream] Ibuprofen 400 mg PO BID PRN 05/22/19 05/22/19 Thera M Enhanced 1 tab PO DAILY 05/22/19 05/22/19 Allergies Allergy/AdvReac Type Severity Reaction Status Date / Time ciprofloxacin Allergy Unknown Nausea Verified 05/22/19 16:03 dicyclomine HCl [From Bentyl] Allergy Unknown Dyspnea Verified 05/22/19 16:03 latex Allergy Unknown Rash/Hives Verified 05/22/19 16:03 Macrolide Antibiotics Allergy Unknown Nausea Verified 05/22/19 16:03 diphenhydramine HCl Allergy Anaphylaxis Verified 05/22/19 16:03 [From Benadryl] adhesive AdvReac Unknown Itching Verified 05/22/19 16:03 sulfamethoxazole AdvReac Unknown Unknown Verified 05/22/19 16:03 [From Bactrim] trimethoprim [From Bactrim] AdvReac Unknown Unknown Verified 05/22/19 16:03 Review of Systems ROS Statement: Those systems with pertinent positive or pertinent negative responses have been documented in the HPI. ROS Other: All systems not noted in ROS Statement are negative. Past Medical History Past Medical History: Asthma, Chest Pain / Angina, COPD, CVA/TIA, Diabetes Mellitus, GERD/Reflux, Hearing Disorder / Deafness, Hyperlipidemia, Hypertension, Liver Disease, Osteoarthritis (OA), Pneumonia, Seizure Disorder, Sleep Apnea/CPAP/BIPAP Additional Past Medical History / Comment(s): Cyst on kidney, uses cpap (22) History of Any Multi-Drug Resistant Organisms: None Reported Past Surgical History: Heart Catheterization, Orthopedic Surgery Additional Past Surgical History / Comment(s): Cysts removed, left thumb surgery Past Anesthesia/Blood Transfusion Reactions: Motion Sickness, Postoperative Nausea & Vomiting (PONV) Past Psychological History: Anxiety, Bipolar, Depression, Schizophrenia Smoking Status: Current every day smoker Past Alcohol Use History: None Reported, Abuse, Daily, Heavy Past Drug Use History: None Reported, Marijuana - Past Family History Brother(s) Family Medical History: Diabetes Mellitus Additional Family Medical History / Comment(s): Patient has 2 brothers. One from complications from diabetes. The second is alive with diabetes. Sister(s) Family Medical History: Cancer Additional Family Medical History / Comment(s): Patient has one sister with breast cancer. Patient does not have any children. Father Family Medical History: Cancer Additional Family Medical History / Comment(s): Father in his 40s or 50s from colon cancer. Mother Family Medical History: Cancer Additional Family Medical History / Comment(s): Mother at age 68 from lung cancer. General Exam Limitations: no limitations General appearance: alert, in no apparent distress Head exam: Present: atraumatic, normocephalic, normal inspection Eye exam: Present: normal appearance, PERRL, EOMI. Absent: scleral icterus, conjunctival injection, periorbital swelling ENT exam: Present: normal exam, mucous membranes moist Neck exam: Present: normal inspection. Absent: tenderness, meningismus, lymphadenopathy Respiratory exam: Present: normal lung sounds bilaterally. Absent: respiratory distress, wheezes, rales, rhonchi, stridor Cardiovascular Exam: Present: regular rate, normal rhythm, normal heart sounds. Absent: systolic murmur, diastolic murmur, rubs, gallop, clicks GI/Abdominal exam: Present: soft, normal bowel sounds. Absent: distended, tenderness, guarding, rebound, rigid Extremities exam: Present: normal inspection, full ROM, normal capillary refill. Absent: tenderness, pedal edema, joint swelling, calf tenderness Back exam: Present: normal inspection Neurological exam: Present: alert, oriented X3, CN II-XII intact Psychiatric exam: Present: normal affect, normal mood Skin exam: Present: warm, dry, intact, normal color. Absent: rash Course Vital Signs 05/22/19 16:01 Temperature 98.7 F Pulse Rate 91 Respiratory 20 Rate Blood Pressure 120/72 O2 Sat by Pulse 97 Oximetry Medical Decision Making - Medical Decision Making 49 male to the ER for evaluation of nonspecific abdominal pain. No acute pain currently. Patient can be discharged home - Radiology Data Radiology results: report reviewed (X-ray KUB negative for acute disease), image reviewed Disposition Clinical Impression: Abdominal pain Disposition: HOME SELF-CARE Condition: Good Instructions (If sedation given, give patient instructions): Abdominal Pain (ED) Is patient prescribed a controlled substance at d/c from ED?: No [facility] - [facility]-2 days
--- NOTE | 2019-05-22 17:07 | XR ---
EXAMINATION TYPE: XR KUB DATE OF EXAM: 05/22/2019 COMPARISON: 10/25/2016 HISTORY: Abdominal pain TECHNIQUE: 2 views FINDINGS: There is no sign of intestinal obstruction or pneumoperitoneum. Fecal pattern is normal. Adelaida ng bases are clear. There are no pathologic calcifications over the kidneys. IMPRESSION: Nonacute abdomen. No change.
== END 2019-05-22 18:07 | disposition home or self-care (01) ==
LOC: EC 15:39
DX: R10.84 Generalized abdominal pain (principal); R11.0 Nausea; M54.9 Dorsalgia, unspecified; J44.9 Chronic obstructive pulmonary disease, unspecified; E11.9 Type 2 diabetes mellitus without complications; K21.9 Gastro-esophageal reflux disease without esophagitis; H91.90 Unspecified hearing loss, unspecified ear; E78.5 Hyperlipidemia, unspecified; I10 Essential (primary) hypertension; G40.909 Epilepsy, unspecified, not intractable, without status epilepticus; G47.30 Sleep apnea, unspecified; F31.9 Bipolar disorder, unspecified; F41.9 Anxiety disorder, unspecified; F20.9 Schizophrenia, unspecified; F17.200 Nicotine dependence, unspecified, uncomplicated; Z88.1 Allergy status to other antibiotic agents; Z88.2 Allergy status to sulfonamides; Z88.8 Allergy status to other drugs, medicaments and biological substances; Z91.040 Latex allergy status; Z91.048 Other nonmedicinal substance allergy status; Z79.84 Long term (current) use of oral hypoglycemic drugs; Z79.899 Other long term (current) drug therapy; Z99.89 Dependence on other enabling machines and devices; Z80.0 Family history of malignant neoplasm of digestive organs
CPT/HCPCS: 74018; 99284

== ENCOUNTER 2019-06-07 12:41 | Emergency (ER) | payer MEDICARE, OTHER ==
[2019-06-07 12:50] VITALS: BP 119/81; PULSE 68; RESP 18; TEMP 98
--- NOTE | 2019-06-07 13:28 | ED ---
Lower Extremity Injury HPI - General Chief Complaint: Extremity Injury, Lower Stated Complaint: fall, rt knee pain Time Seen by Provider: 06/07/19 12:55 Source: patient, RN notes reviewed Mode of arrival: ambulatory Limitations: no limitations - History of Present Illness Initial Comments: 49-year-old male presents emergency appointment with chief complaint of right knee pain. Patient states that he chipped over a ladder yesterday falling onto a hard surface. No anginal CONSCIOUS. Patient has abrasion to his right needs tetanus is up-to-date. Patient is able to ambulate but states it is sore today patient offers no other complaints. - Related Data Home Medications Medication Instructions Recorded Confirmed ARIPiprazole [Abilify] 10 mg PO HS 01/19/19 05/22/19 OLANZapine [ZyPREXA] 10 mg PO HS 01/19/19 05/22/19 Ergocalciferol (Vitamin D2) 50,000 unit PO MO 02/23/19 05/22/19 [Vitamin D2] Cholestyramine/Aspartame 4 gm PO BID 04/12/19 05/22/19 [Cholestyramine Light Powder] Fenofibrate 160 mg PO DAILY 04/12/19 05/22/19 Omeprazole 20 mg PO BID 04/12/19 05/22/19 Albuterol Sulfate [Proair 2 puff PO RT-Q6H PRN 04/30/19 05/22/19 Respiclick] Ondansetron HCl [Zofran] 4 mg PO DAILY PRN 04/30/19 05/22/19 metFORMIN HCL 1,000 mg PO BID 04/30/19 05/22/19 Hydrocortisone Cream 1 applic TOPICAL BID 05/22/19 05/22/19 [Hydrocortisone 2.5% Cream] Ibuprofen 400 mg PO BID PRN 05/22/19 05/22/19 Thera M Enhanced 1 tab PO DAILY 05/22/19 05/22/19 Allergies Allergy/AdvReac Type Severity Reaction Status Date / Time ciprofloxacin Allergy Unknown Nausea Verified 05/22/19 16:03 dicyclomine HCl [From Bentyl] Allergy Unknown Dyspnea Verified 05/22/19 16:03 latex Allergy Unknown Rash/Hives Verified 05/22/19 16:03 Macrolide Antibiotics Allergy Unknown Nausea Verified 05/22/19 16:03 diphenhydramine HCl Allergy Anaphylaxis Verified 05/22/19 16:03 [From Benadryl] adhesive AdvReac Unknown Itching Verified 05/22/19 16:03 sulfamethoxazole AdvReac Unknown Unknown Verified 05/22/19 16:03 [From Bactrim] trimethoprim [From Bactrim] AdvReac Unknown Unknown Verified 05/22/19 16:03 Review of Systems ROS Statement: Those systems with pertinent positive or pertinent negative responses have been documented in the HPI. ROS Other: All systems not noted in ROS Statement are negative. Past Medical History Past Medical History: Asthma, Chest Pain / Angina, COPD, CVA/TIA, Diabetes Mellitus, GERD/Reflux, Hearing Disorder / Deafness, Hyperlipidemia, Hypertension, Liver Disease, Osteoarthritis (OA), Pneumonia, Seizure Disorder, Sleep Apnea/CPAP/BIPAP Additional Past Medical History / Comment(s): Cyst on kidney, uses cpap (22) History of Any Multi-Drug Resistant Organisms: None Reported Past Surgical History: Heart Catheterization, Orthopedic Surgery Additional Past Surgical History / Comment(s): Cysts removed, left thumb surgery Past Anesthesia/Blood Transfusion Reactions: Motion Sickness, Postoperative Nausea & Vomiting (PONV) Past Psychological History: Anxiety, Bipolar, Depression, Schizophrenia Smoking Status: Current every day smoker Past Alcohol Use History: None Reported, Abuse, Daily, Heavy Past Drug Use History: None Reported, Marijuana - Past Family History Brother(s) Family Medical History: Diabetes Mellitus Additional Family Medical History / Comment(s): Patient has 2 brothers. One from complications from diabetes. The second is alive with diabetes. Sister(s) Family Medical History: Cancer Additional Family Medical History / Comment(s): Patient has one sister with breast cancer. Patient does not have any children. Father Family Medical History: Cancer Additional Family Medical History / Comment(s): Father in his 40s or 50s from colon cancer. Mother Family Medical History: Cancer Additional Family Medical History / Comment(s): Mother at age 68 from lung cancer. General Exam Limitations: no limitations General appearance: alert, in no apparent distress Head exam: Present: atraumatic, normocephalic, normal inspection Eye exam: Present: normal appearance, PERRL, EOMI. Absent: scleral icterus, conjunctival injection, periorbital swelling ENT exam: Present: normal exam, normal oropharynx, mucous membranes moist Neck exam: Present: normal inspection, full ROM. Absent: tenderness, meningismus, lymphadenopathy Respiratory exam: Present: normal lung sounds bilaterally. Absent: respiratory distress, wheezes, rales, rhonchi, stridor Cardiovascular Exam: Present: regular rate, normal rhythm, normal heart sounds. Absent: systolic murmur, diastolic murmur, rubs, gallop, clicks Extremities exam: Present: other (Right knee small abrasion noted for range of motion minimally tender no ecchymosis no swelling) Course Vital Signs 06/07/19 12:46 Temperature 98 F Pulse Rate 68 Respiratory 18 Rate Blood Pressure 119/81 O2 Sat by Pulse 100 Oximetry Medical Decision Making - Medical Decision Making X-rays are negative for acute fracture. Patient be discharged with a right knee contusion conservative treatment. Disposition Clinical Impression: Contusion of right knee, Abrasion, right knee, initial encounter Disposition: HOME SELF-CARE Condition: Stable Instructions (If sedation given, give patient instructions): Knee Pain (ED) Additional Instructions: Please return to the Emergency Department if symptoms worsen or any other concerns. Is patient prescribed a controlled substance at d/c from ED?: No Referrals: [facility] [Primary Care Provider] - 1-2 days Time of Disposition: 13:28
--- NOTE | 2019-06-07 13:53 | XR ---
EXAMINATION TYPE: XR knee complete RT DATE OF EXAM: 06/07/2019 CLINICAL HISTORY: Right knee TECHNIQUE: Three views of the right knee are obtained. COMPARISON: None. FINDINGS: There is no acute fracture/dislocation evident in right knee. The tri-compartment joint s paces appear within normal limits. The overlying soft tissue appears unremarkable. IMPRESSION: There is no acute fracture or dislocation in the right knee.
== END 2019-06-07 13:51 | disposition home or self-care (01) ==
LOC: EC 12:41
DX: S80.01XA Contusion of right knee, initial encounter (principal); J44.9 Chronic obstructive pulmonary disease, unspecified; E11.9 Type 2 diabetes mellitus without complications; K21.9 Gastro-esophageal reflux disease without esophagitis; H91.90 Unspecified hearing loss, unspecified ear; E78.5 Hyperlipidemia, unspecified; I10 Essential (primary) hypertension; M19.90 Unspecified osteoarthritis, unspecified site; G47.30 Sleep apnea, unspecified; F31.9 Bipolar disorder, unspecified; F41.9 Anxiety disorder, unspecified; F20.9 Schizophrenia, unspecified; F17.200 Nicotine dependence, unspecified, uncomplicated; Z88.1 Allergy status to other antibiotic agents; Z88.2 Allergy status to sulfonamides; Z88.8 Allergy status to other drugs, medicaments and biological substances; Z91.040 Latex allergy status; Z91.048 Other nonmedicinal substance allergy status; Z79.1 Long term (current) use of non-steroidal anti-inflammatories (NSAID); Z79.52 Long term (current) use of systemic steroids; Z79.84 Long term (current) use of oral hypoglycemic drugs; Z79.899 Other long term (current) drug therapy; Z99.89 Dependence on other enabling machines and devices; W11.XXXA Fall on and from ladder, initial encounter; Y92.009 Unspecified place in unspecified non-institutional (private) residence as the place of occurrence of the external cause
CPT/HCPCS: 99283

== ENCOUNTER 2019-07-10 12:06 | Emergency (ER) | payer MEDICARE, OTHER ==
[2019-07-10 12:17] VITALS: RESP 18
[2019-07-10] MEDS ORDERED: SODIUM CHLORIDE 0.9% 500 ML 500 ML IV ONE (12:48)
[2019-07-10 13:04] LABS: Basophils % (A) 0 %; Eosinophils # (A) 0.2 k/uL (0-0.7); Eosinophils % (A) 2 %; HCT 46.2 % (39.0-53.0); HGB 15.9 gm/dL (13.0-17.5); Lymphocytes # (A) 1.2 k/uL (1.0-4.8); Lymphocytes % (A) 15 %; MCH 30.4 pg (25.0-35.0); MCHC 34.4 g/dL (31.0-37.0); MCV 88.5 fL (80.0-100.0); Mean Platelet Volume 7.4; Monocytes # (A) 0.5 k/uL (0-1.0); Monocytes % (A) 6 %; Neutrophils # (A) 6.1 k/uL (1.3-7.7); Neutrophils % (A) 76 %; Platelet Count 190 k/uL (150-450); RBC 5.21 m/uL (4.30-5.90); RDW 13.1 % (11.5-15.5); WBC 8.1 k/uL (3.8-10.6)
--- NOTE | 2019-07-10 13:16 | XR ---
EXAMINATION TYPE: XR abdomen acute w cxr DATE OF EXAM: 07/10/2019 CLINICAL HISTORY: Chest and Abdominal pain with vomiting for 3 days. TECHNIQUE: Single frontal view of chest is obtained. Supine and upright views of the abdomen are acq uired. COMPARISON: Chest x-ray May 11, 2019. CTA chest April 12, 2019 CT abdomen pelvis January 10, 2018 . FINDINGS: The lungs are grossly clear without pleural effusion or pneumothorax. Cardiac silhouette size appears enlarged. Multilevel spurring in thoracic spine. Some paucity of bowel gas. Gas is seen in nondistended stomach and scattered small bowel loops throug hout the abdomen and pelvis . Gas is seen in nondistended colon along the periphery. Prominent left-s ided pelvic phlebolith redemonstrated. Bladder minimally distended. No pneumoperitoneum. The osseous structures are intact. IMPRESSION: 1. Cardiomegaly without acute pulmonary process. 2. Overall nonspecific but strongly favor nonobstructive bowel gas pattern.
[2019-07-10 13:18] LABS: ALT 101 U/L (4-49); AST 64 U/L (17-59); African American GFR (CKD) >90 (>60 ml/min/1.73 sqM); Albumin 4.7 g/dL (3.5-5.0); Alkaline Phosphatase 65 U/L (38-126); Anion Gap 8 mmol/L; Blood Urea Nitrogen 19 mg/dL (9-20); Carbon Dioxide 24 mmol/L (22-30); Chloride 108 mmol/L (98-107); Glucose 102 mg/dL (74-99); Non-African American GFR(CKD) >90 (>60 ml/min/1.73 sqM); Potassium 4.4 mmol/L (3.5-5.1); Sodium 140 mmol/L (137-145); Total Bilirubin 0.7 mg/dL (0.2-1.3); Total Protein 7.4 g/dL (6.3-8.2)
--- NOTE | 2019-07-10 13:23 | ED ---
Abdominal Pain HPI - General Chief Complaint: Abdominal Pain Stated Complaint: abdominal pain Time Seen by Provider: 07/10/19 12:31 Source: patient Mode of arrival: wheelchair Limitations: no limitations - History of Present Illness Initial Comments: 49-year-old male presenting today for chief complaint of abdominal pain patient states has been ongoing for quite some time. Patient states he also has chronic diarrhea. Denies vomiting. Denies chest pain denies shortness of breath. Patient denies any back pain and headache dizziness. Patient has no other complaints appears well in no distress on arrival vital signs stable - Related Data Home Medications Medication Instructions Recorded Confirmed ARIPiprazole [Abilify] 10 mg PO HS 01/19/19 05/22/19 OLANZapine [ZyPREXA] 10 mg PO HS 01/19/19 05/22/19 Ergocalciferol (Vitamin D2) 50,000 unit PO MO 02/23/19 05/22/19 [Vitamin D2] Cholestyramine/Aspartame 4 gm PO BID 04/12/19 05/22/19 [Cholestyramine Light Powder] Fenofibrate 160 mg PO DAILY 04/12/19 05/22/19 Omeprazole 20 mg PO BID 04/12/19 05/22/19 Albuterol Sulfate [Proair 2 puff PO RT-Q6H PRN 04/30/19 05/22/19 Respiclick] Ondansetron HCl [Zofran] 4 mg PO DAILY PRN 04/30/19 05/22/19 metFORMIN HCL 1,000 mg PO BID 04/30/19 05/22/19 Hydrocortisone Cream 1 applic TOPICAL BID 05/22/19 05/22/19 [Hydrocortisone 2.5% Cream] Ibuprofen 400 mg PO BID PRN 05/22/19 05/22/19 Thera M Enhanced 1 tab PO DAILY 05/22/19 05/22/19 Allergies Allergy/AdvReac Type Severity Reaction Status Date / Time ciprofloxacin Allergy Unknown Nausea Verified 07/10/19 12:15 dicyclomine HCl [From Bentyl] Allergy Unknown Dyspnea Verified 07/10/19 12:15 latex Allergy Unknown Rash/Hives Verified 07/10/19 12:15 Macrolide Antibiotics Allergy Unknown Nausea Verified 07/10/19 12:15 diphenhydramine HCl Allergy Anaphylaxis Verified 07/10/19 12:15 [From Benadryl] adhesive AdvReac Unknown Itching Verified 07/10/19 12:15 sulfamethoxazole AdvReac Unknown Unknown Verified 07/10/19 12:15 [From Bactrim] trimethoprim [From Bactrim] AdvReac Unknown Unknown Verified 07/10/19 12:15 Review of Systems ROS Statement: Those systems with pertinent positive or pertinent negative responses have been documented in the HPI. ROS Other: All systems not noted in ROS Statement are negative. Past Medical History Past Medical History: Asthma, Chest Pain / Angina, COPD, CVA/TIA, Diabetes Mellitus, GERD/Reflux, Hearing Disorder / Deafness, Hyperlipidemia, Hypertension, Liver Disease, Osteoarthritis (OA), Pneumonia, Seizure Disorder, Sleep Apnea/CPAP/BIPAP Additional Past Medical History / Comment(s): Cyst on kidney, uses cpap (22) History of Any Multi-Drug Resistant Organisms: None Reported Past Surgical History: Heart Catheterization, Orthopedic Surgery Additional Past Surgical History / Comment(s): Cysts removed, left thumb surgery Past Anesthesia/Blood Transfusion Reactions: Motion Sickness, Postoperative Na usea & Vomiting (PONV) Past Psychological History: Anxiety, Bipolar, Depression, Schizophrenia Smoking Status: Current every day smoker Past Alcohol Use History: None Reported, Abuse, Daily, Heavy Past Drug Use History: None Reported, Marijuana - Past Family History Brother(s) Family Medical History: Diabetes Mellitus Additional Family Medical History / Comment(s): Patient has 2 brothers. One from complications from diabetes. The second is alive with diabetes. Sister(s) Family Medical History: Cancer Additional Family Medical History / Comment(s): Patient has one sister with breast cancer. Patient does not have any children. Father Family Medical History: Cancer Additional Family Medical History / Comment(s): Father in his 40s or 50s from colon cancer. Mother Family Medical History: Cancer Additional Family Medical History / Comment(s): Mother at age 68 from lung cancer. General Exam - General Exam Comments Initial Comments: General: The patient is awake and alert, in no distress, and does not appear acutely ill. Eye: +3 mm pupils are equal, round and reactive to light, extra-ocular movements are intact. No nystagmus. There is normal conjunctiva bilaterally. No signs of icterus. Ears, nose, mouth and throat: There are moist mucous membranes and no oral lesions. Neck: The neck is supple, there is no tenderness or JVD. Cardiovascular: There is a regular rate and rhythm. No murmur, rub or gallop is appreciated. Respiratory: Lungs are clear to auscultation, respirations are non-labored, breath sounds are equal. No wheezes, stridor, rales, or rhonchi. Gastrointestinal: Soft, non-distended, non-tender abdomen without masses or organomegaly noted. There is no rebound or guarding present. Bowel sounds are unremarkable. Musculoskeletal: Normal ROM, no tenderness. Strength 5/5. Sensation intact. Radial pulses equal bilaterally 2+. Neurological: A&O x 3. CN II-XII intact grossly, There are no obvious motor or sensory deficits. Coordination appears grossly intact. Speech is normal. Skin: Skin is warm and dry and no rashes or lesions are noted. Psychiatric: Cooperative, there appears to be a development delay, patient is at known previous baseline Limitations: no limitations Course Vital Signs 07/10/19 07/10/19 12:15 14:02 Temperature 98.3 F 98.7 F Pulse Rate 71 61 Respiratory 18 18 Rate Blood Pressure 120/82 120/75 O2 Sat by Pulse 99 98 Oximetry Medical Decision Making - Medical Decision Making 49-year-old male presenting for abdominal pain. ABdominal exam benign. Acute abdominal series reveals no free air or obstructive abdominal pattern. Laboratory studies stable similar to that of previous. Patient's vital signs within acceptable limits. Patient appears comfortable at this time I feel patient is stable for discharge with outpatient primary care follow-up patient is agreeable to this care plan patient's guardian was contacted and pateint was discharged appearing well after discussing case with Dr. Saucedo. - Lab Data Result diagrams: 07/10/19 12:53 07/10/19 12:53 Lab Results 07/10/19 07/10/19 Range/Units 12:53 12:53 WBC 8.1 (3.8-10.6) k/uL RBC 5.21 (4.30-5.90) m/uL Hgb 15.9 (13.0-17.5) gm/dL Hct 46.2 (39.0-53.0) % MCV 88.5 (80.0-100.0) fL MCH 30.4 (25.0-35.0) pg MCHC 34.4 (31.0-37.0) g/dL RDW 13.1 (11.5-15.5) % Plt Count 190 (150-450) k/uL Neutrophils % 76 % Lymphocytes % 15 % Monocytes % 6 % Eosinophils % 2 % Basophils % 0 % Neutrophils # 6.1 (1.3-7.7) k/uL Lymphocytes # 1.2 (1.0-4.8) k/uL Monocytes # 0.5 (0-1.0) k/uL Eosinophils # 0.2 (0-0.7) k/uL Basophils # 0.0 (0-0.2) k/uL Sodium 140 (137-145) mmol/L Potassium 4.4 (3.5-5.1) mmol/L Chloride 108 H (98-107) mmol/L Carbon Dioxide 24 (22-30) mmol/L Anion Gap 8 mmol/L BUN 19 (9-20) mg/dL Creatinine 0.93 (0.66-1.25) mg/dL Est GFR (CKD-EPI)AfAm >90 (>60 ml/min/1.73 sqM) Est GFR (CKD-EPI)NonAf >90 (>60 ml/min/1.73 sqM) Glucose 102 H (74-99) mg/dL Calcium 10.0 (8.4-10.2) mg/dL Total Bilirubin 0.7 (0.2-1.3) mg/dL AST 64 H (17-59) U/L ALT 101 H (4-49) U/L Alkaline Phosphatase 65 (38-126) U/L Total Protein 7.4 (6.3-8.2) g/dL Albumin 4.7 (3.5-5.0) g/dL Disposition Clinical Impression: Abdominal pain Disposition: HOME SELF-CARE Condition: Good Instructions (If sedation given, give patient instructions): Abdominal Pain (ED ) Additional Instructions: Please use medication as discussed. Please follow-up with family doctor in the next 2 days. Please return to emergency room if the symptoms increase or worsen or for any other concerns. Is patient prescribed a controlled substance at d/c from ED?: No Referrals: [facility] [Primary Care Provider] - 1-2 days Time of Disposition: 13:31
[2019-07-10 14:08] VITALS: BP 120/75; PULSE 61; TEMP 98.7
== END 2019-07-10 14:02 | disposition home or self-care (01) ==
LOC: EC 12:06
DX: R10.9 Unspecified abdominal pain (principal); J44.9 Chronic obstructive pulmonary disease, unspecified; E11.9 Type 2 diabetes mellitus without complications; K21.9 Gastro-esophageal reflux disease without esophagitis; I10 Essential (primary) hypertension; E78.5 Hyperlipidemia, unspecified; G47.30 Sleep apnea, unspecified; F17.200 Nicotine dependence, unspecified, uncomplicated; Z79.84 Long term (current) use of oral hypoglycemic drugs; Z79.899 Other long term (current) drug therapy; Z88.1 Allergy status to other antibiotic agents; Z91.040 Latex allergy status; Z91.048 Other nonmedicinal substance allergy status; Z88.2 Allergy status to sulfonamides; Z88.8 Allergy status to other drugs, medicaments and biological substances; Z86.73 Personal history of transient ischemic attack (TIA), and cerebral infarction without residual deficits; Z99.89 Dependence on other enabling machines and devices
CPT/HCPCS: 36415; 74022; 80053; 85025; 96360; 99284

== ENCOUNTER 2019-07-19 22:19 | Emergency (ER) | payer MEDICARE, OTHER ==
[2019-07-19 22:40] VITALS: BP 137/86; PULSE 81; RESP 20; TEMP 98.3
[2019-07-19] MEDS ORDERED: ORPHENADRINE 30 MG/ML 2 ML VIAL IM STA (23:10)
[2019-07-19] MEDS ORDERED: KETOROLAC 60 MG/2 ML VIAL IM STA (23:10)
--- NOTE | 2019-07-19 23:12 | ED ---
General Adult HPI - General Chief complaint: Back Pain/Injury Stated complaint: pain all over Time Seen by Provider: 07/19/19 22:58 Source: patient, RN notes reviewed Mode of arrival: ambulatory Limitations: no limitations - History of Present Illness Initial comments: This a 49-year-old male presents emergency Department with chief complaint of chronic pain issues. Patient states he has left ankle knee pain which has been ongoing for several years she is scheduled to get a walker to help. Patient states that he gets muscle spasms all over which are not new for him. He denies any current chest pain shortness breath nausea vomiting diarrhea constipation. He states that a week ago he had some numbness and tingling of this morning that only lasted a few seconds. Patient does not have any specific complaints this time other than pain. Patient states he does not take any further symptoms. - Related Data Home Medications Medication Instructions Recorded Confirmed ARIPiprazole [Abilify] 10 mg PO HS 01/19/19 05/22/19 OLANZapine [ZyPREXA] 10 mg PO HS 01/19/19 05/22/19 Ergocalciferol (Vitamin D2) 50,000 unit PO MO 02/23/19 05/22/19 [Vitamin D2] Cholestyramine/Aspartame 4 gm PO BID 04/12/19 05/22/19 [Cholestyramine Light Powder] Fenofibrate 160 mg PO DAILY 04/12/19 05/22/19 Omeprazole 20 mg PO BID 04/12/19 05/22/19 Albuterol Sulfate [Proair 2 puff PO RT-Q6H PRN 04/30/19 05/22/19 Respiclick] Ondansetron HCl [Zofran] 4 mg PO DAILY PRN 04/30/19 05/22/19 metFORMIN HCL 1,000 mg PO BID 04/30/19 05/22/19 Hydrocortisone Cream 1 applic TOPICAL BID 05/22/19 05/22/19 [Hydrocortisone 2.5% Cream] Ibuprofen 400 mg PO BID PRN 05/22/19 05/22/19 Thera M Enhanced 1 tab PO DAILY 05/22/19 05/22/19 Allergies Allergy/AdvReac Type Severity Reaction Status Date / Time ciprofloxacin Allergy Unknown Nausea Verified 07/19/19 22:40 dicyclomine HCl [From Bentyl] Allergy Unknown Dyspnea Verified 01/22/20 22:40 latex Allergy Unknown Rash/Hives Verified 07/19/19 22:40 Macrolide Antibiotics Allergy Unknown Nausea Verified 07/19/19 22:40 diphenhydramine HCl Allergy Anaphylaxis Verified 07/19/19 22:40 [From Benadryl] adhesive AdvReac Unknown Itching Verified 07/19/19 22:40 sulfamethoxazole AdvReac Unknown Unknown Verified 07/19/19 22:40 [From Bactrim] trimethoprim [From Bactrim] AdvReac Unknown Unknown Verified 07/19/19 22:40 Review of Systems ROS Statement: Those systems with pertinent positive or pertinent negative responses have been documented in the HPI. ROS Other: All systems not noted in ROS Statement are negative. Past Medical History Past Medical History: Asthma, Chest Pain / Angina, COPD, CVA/TIA, Diabetes Mellitus, GERD/Reflux, Hearing Disorder / Deafness, Hyperlipidemia, Hypertension, Liver Disease, Osteoarthritis (OA), Pneumonia, Seizure Disorder, Sleep Apnea/CPAP/BIPAP Additional Past Medical History / Comment(s): Cyst on kidney, uses cpap (22) History of Any Multi-Drug Resistant Organisms: None Reported Past Surgical History: Heart Catheterization, Orthopedic Surgery Additional Past Surgical History / Comment(s): Cysts removed, left thumb surgery Past Anesthesia/Blood Transfusion Reactions: Motion Sickness, Postoperative Nausea & Vomiting (PONV) Past Psychological History: Anxiety, Bipolar, Depression, Schizophrenia Smoking Status: Current every day smoker Past Alcohol Use History: None Reported, Abuse, Daily, Heavy Past Drug Use History: None Reported, Marijuana - Past Family History Brother(s) Family Medical History: Diabetes Mellitus Additional Family Medical History / Comment(s): Patient has 2 brothers. One from complications from diabetes. The second is alive with diabetes. Sister(s) Family Medical History: Cancer Additional Family Medical History / Comment(s): Patient has one sister with laurie ast cancer. Patient does not have any children. Father Family Medical History: Cancer Additional Family Medical History / Comment(s): Father in his 40s or 50s from colon cancer. Mother Family Medical History: Cancer Additional Family Medical History / Comment(s): Mother at age 68 from lung cancer. General Exam Limitations: no limitations General appearance: alert, in no apparent distress Head exam: Present: atraumatic, normocephalic, normal inspection Eye exam: Present: normal appearance, PERRL, EOMI. Absent: scleral icterus, conjunctival injection, periorbital swelling ENT exam: Present: normal exam, mucous membranes moist Neck exam: Present: normal inspection. Absent: tenderness, meningismus, lympha denopathy Respiratory exam: Present: normal lung sounds bilaterally. Absent: respiratory distress, wheezes, rales, rhonchi, stridor Cardiovascular Exam: Present: regular rate, normal rhythm, normal heart sounds. Absent: systolic murmur, diastolic murmur, rubs, gallop, clicks Extremities exam: Present: normal inspection, full ROM, normal capillary refill. Absent: tenderness, pedal edema, joint swelling, calf tenderness Back exam: Present: full ROM. Absent: tenderness, paraspinal tenderness, v ertebral tenderness Neurological exam: Present: alert, oriented X3, CN II-XII intact Course Vital Signs 07/19/19 22:37 Temperature 98.3 F Pulse Rate 81 Respiratory 20 Rate Blood Pressure 137/86 O2 Sat by Pulse 96 Oximetry Medical Decision Making - Medical Decision Making Patient was provided Toradol and Norflex. Patient will be discharged this time stable condition return parameters were discussed. Disposition Clinical Impression: Chronic pain, Muscle spasm Disposition: HOME SELF-CARE Condition: Stable Instructions (If sedation given, give patient instructions): Arthralgia (ED) Additional Instructions: Please return to the Emergency Department if symptoms worsen or any other concerns. Is patient prescribed a controlled substance at d/c from ED?: No Referrals: [facility] [Primary Care Provider] - 1-2 days Time of Disposition: 23:12
== END 2019-07-19 23:35 | disposition home or self-care (01) ==
LOC: EEVIPCON 22:19 → EC 22:19
DX: G89.29 Other chronic pain (principal); M62.838 Other muscle spasm; J44.9 Chronic obstructive pulmonary disease, unspecified; E11.9 Type 2 diabetes mellitus without complications; K21.9 Gastro-esophageal reflux disease without esophagitis; E78.5 Hyperlipidemia, unspecified; I10 Essential (primary) hypertension; M19.90 Unspecified osteoarthritis, unspecified site; F20.9 Schizophrenia, unspecified; F31.9 Bipolar disorder, unspecified; F17.200 Nicotine dependence, unspecified, uncomplicated; G47.30 Sleep apnea, unspecified; Z99.89 Dependence on other enabling machines and devices; Z86.73 Personal history of transient ischemic attack (TIA), and cerebral infarction without residual deficits; Z95.818 Presence of other cardiac implants and grafts; Z79.84 Long term (current) use of oral hypoglycemic drugs; Z79.52 Long term (current) use of systemic steroids; Z79.1 Long term (current) use of non-steroidal anti-inflammatories (NSAID); Z79.899 Other long term (current) drug therapy; Z88.1 Allergy status to other antibiotic agents; Z88.8 Allergy status to other drugs, medicaments and biological substances; Z91.040 Latex allergy status; Z91.048 Other nonmedicinal substance allergy status; Z88.2 Allergy status to sulfonamides
CPT/HCPCS: 99283; 96372 ×2; J2360; J1885

== ENCOUNTER 2019-08-07 15:04 | Emergency (ER) | payer MEDICARE, OTHER ==
[2019-08-07 15:19] VITALS: RESP 18
--- NOTE | 2019-08-07 16:57 | XR ---
EXAMINATION TYPE: XR chest 2V DATE OF EXAM: 08/07/2019 COMPARISON: 05/11/2019 INDICATION: Cough, fever TECHNIQUE: Frontal and lateral views of the chest are obtained. FINDINGS: The heart size is normal. The pulmonary vasculature is normal. The lungs are clear. IMPRESSION: 1. No acute pulmonary process.
[2019-08-07] MEDS ORDERED: methylPREDNISolone SOD SUCCI 125 MG/2 ML VIAL IM ONE (17:23)
--- NOTE | 2019-08-07 17:23 | ED ---
URI HPI - General Chief Complaint: Upper Respiratory Infection Stated Complaint: cough, sob Time Seen by Provider: 08/07/19 16:03 Source: patient Mode of arrival: ambulatory Limitations: no limitations - History of Present Illness Initial Comments: 49yo presenting for cough. Patient states she has had a cough for the past 5 weeks. Patient states he currently is on steroids. Patient denies hemoptysis he states he is to have shortness of breath at rest but when he has a coughing spell. Patient denies any chest pain leg swelling denies any nausea vomiting neck stiffness headache. Patient denies any other complaints he states he was concerned possibly developed pneumonia and that is why he presented to the emergency department. Upon arrival patient appears well no signs of acute distress - Related Data Home Medications Medication Instructions Recorded Confirmed ARIPiprazole [Abilify] 10 mg PO HS 01/19/19 05/22/19 OLANZapine [ZyPREXA] 10 mg PO HS 01/19/19 05/22/19 Ergocalciferol (Vitamin D2) 50,000 unit PO MO 02/23/19 05/22/19 [Vitamin D2] Cholestyramine/Aspartame 4 gm PO BID 04/12/19 05/22/19 [Cholestyramine Light Powder] Fenofibrate 160 mg PO DAILY 04/12/19 05/22/19 Omeprazole 20 mg PO BID 04/12/19 05/22/19 Albuterol Sulfate [Proair 2 puff PO RT-Q6H PRN 04/30/19 05/22/19 Respiclick] Ondansetron HCl [Zofran] 4 mg PO DAILY PRN 04/30/19 05/22/19 metFORMIN HCL 1,000 mg PO BID 04/30/19 05/22/19 Hydrocortisone Cream 1 applic TOPICAL BID 05/22/19 05/22/19 [Hydrocortisone 2.5% Cream] Ibuprofen 400 mg PO BID PRN 05/22/19 05/22/19 Thera M Enhanced 1 tab PO DAILY 05/22/19 05/22/19 Allergies Allergy/AdvReac Type Severity Reaction Status Date / Time ciprofloxacin Allergy Unknown Nausea Verified 08/07/19 15:15 dicyclomine HCl [From Bentyl] Allergy Unknown Dyspnea Verified 08/07/19 15:15 latex Allergy Unknown Rash/Hives Verified 08/07/19 15:15 Macrolide Antibiotics Allergy Unknown Nausea Verified 08/07/19 15:15 diphenhydramine HCl Allergy Anaphylaxis Verified 08/07/19 15:15 [From Benadryl] adhesive AdvReac Unknown Itching Verified 08/07/19 15:15 sulfamethoxazole AdvReac Unknown Unknown Verified 08/07/19 15:15 [From Bactrim] trimethoprim [From Bactrim] AdvReac Unknown Unknown Verified 08/07/19 15:15 Review of Systems ROS Statement: Those systems with pertinent positive or pertinent negative responses have been documented in the HPI. ROS Other: All systems not noted in ROS Statement are negative. Past Medical History Past Medical History: Asthma, Chest Pain / Angina, COPD, CVA/TIA, Diabetes Mellitus, GERD/Reflux, Hearing Disorder / Deafness, Hyperlipidemia, Hypertension, Liver Disease, Osteoarthritis (OA), Pneumonia, Seizure Disorder, Sleep Apnea/CPAP/BIPAP Additional Past Medical History / Comment(s): Cyst on kidney, uses cpap (22) History of Any Multi-Drug Resistant Organisms: None Reported Past Surgical History: Heart Catheterization, Orthopedic Surgery Additional Past Surgical History / Comment(s): Cysts removed, left thumb surgery Past Anesthesia/Blood Transfusion Reactions: Motion Sickness, Postoperative Nausea & Vomiting (PONV) Past Psychological History: Anxiety, Bipolar, Depression, Schizophrenia Smoking Status: Current every day smoker Past Alcohol Use History: None Reported, Abuse, Daily, Heavy Past Drug Use History: None Reported, Marijuana - Past Family History Brother(s) Family Medical History: Diabetes Mellitus Additional Family Medical History / Comment(s): Patient has 2 brothers. One from complications from diabetes. The second is alive with diabetes. Sister(s) Family Medical History: Cancer Additional Family Medical History / Comment(s): Patient has one sister with breast cancer. Patient does not have any children. Father Family Medical History: Cancer Additional Family Medical History / Comment(s): Father in his 40s or 50s from colon cancer. Mother Family Medical History: Cancer Additional Family Medical History / Comment(s): Mother at age 68 from lung cancer. General Exam - General Exam Comments Initial Comments: General: The patient is awake and alert, in no distress, and does not appear acutely ill. Eye: +3 mm pupils are equal, round and reactive to light, extra-ocular movements are intact. No nystagmus. There is normal conjunctiva bilaterally. No signs of icterus. No photophobia Ears, nose, mouth and throat: There are moist mucous membranes and no oral lesions. Oropharynx was not erythematous there is no tonsillar enlargement exudates or lesions. Uvula midline. No tenderness to palpation of the mastoid. No anterior cervical lymphadenopathy. Rhinorrhea, clear and bilateral nares. Neck: The neck is supple, there is no tenderness or JVD. No nuchal rigidity Cardiovascular: There is a regular rate and rhythm. No murmur, rub or gallop is appreciated. Respiratory: Lungs are clear to auscultation, respirations are non-labored, breath sounds are equal. No wheezes, stridor, rales, or rhonchi. No retractions or abdominal breathing. Gastrointestinal: Soft, non-distended, non-tender abdomen without masses or organomegaly noted. There is no rebound or guarding present. Bowel sounds are unremarkable. Musculoskeletal: Normal ROM, no tenderness. Strength 5/5. Sensation intact. Radial pulses equal bilaterally 2+. Neurological: A&O x 3. CN II-XII intact grossly, There are no obvious motor or sensory deficits. Coordination appears grossly intact. Speech appears normal, no muffling. Skin: Skin is warm and dry and no rashes or lesions are noted. No extremity edema Psychiatric: Cooperative Limitations: no limitations Course Vital Signs 08/07/19 08/07/19 08/07/19 15:15 16:26 17:55 Temperature 98.2 F 98.8 F Pulse Rate 84 78 Respiratory 18 18 18 Rate Blood Pressure 112/78 143/72 O2 Sat by Pulse 98 98 Oximetry Medical Decision Making - Medical Decision Making 50 mL presenting today for chief complaint of cough 5 weeks. Lungs cleared on examination. Chest x-ray clear focal infiltrates. Influenza negative. Patient is currently on steroids at this time feel he is stable for discharge with outpatient primary care follow-up patient is agreeable to this care plan discharge at this time return parameters were discussed at length and patient was discharged appearing well after discussing the case by attending provider Dr. Galo - Lab Data Lab Results 08/07/19 Range/Units 16:46 Influenza Type A RNA Not Detected (Not Detectd) Influenza Type B (PCR) Not Detected (Not Detectd) Disposition Clinical Impression: Cough, Congestion of nasal sinus, Bronchitis Disposition: HOME SELF-CARE Condition: Good Instructions (If sedation given, give patient instructions): Upper Respiratory Infection (ED) Additional Instructions: Please use medication as discussed. Please follow-up with family doctor in the next 2 days. Please return to emergency room if the symptoms increase or worsen or for any other concerns. Is patient prescribed a controlled substance at d/c from ED?: No Referrals: None,Stated [Primary Care Provider] - 1-2 days Time of Disposition: 17:23
[2019-08-07 17:56] VITALS: BP 143/72; PULSE 78; TEMP 98.8
== END 2019-08-07 17:56 | disposition home or self-care (01) ==
LOC: EC 15:04
DX: J40 Bronchitis, not specified as acute or chronic (principal); I10 Essential (primary) hypertension; E11.9 Type 2 diabetes mellitus without complications; K21.9 Gastro-esophageal reflux disease without esophagitis; E78.5 Hyperlipidemia, unspecified; G47.30 Sleep apnea, unspecified; F17.200 Nicotine dependence, unspecified, uncomplicated; Z79.84 Long term (current) use of oral hypoglycemic drugs; Z79.899 Other long term (current) drug therapy; Z88.1 Allergy status to other antibiotic agents; Z91.040 Latex allergy status; Z88.2 Allergy status to sulfonamides; Z91.048 Other nonmedicinal substance allergy status; Z88.8 Allergy status to other drugs, medicaments and biological substances; Z86.73 Personal history of transient ischemic attack (TIA), and cerebral infarction without residual deficits; Z99.89 Dependence on other enabling machines and devices
CPT/HCPCS: 87502; 71046; 99285; 96372; J2930

== ENCOUNTER 2019-08-09 17:20 | Emergency (ER) | payer MEDICARE, OTHER ==
[2019-08-09] MEDS ORDERED: KETOROLAC 30 MG/ML 1 ML VIAL IVP STA (18:27)
[2019-08-09] MEDS ORDERED: SODIUM CHLORIDE 0.9% 1,000 ML IV STA (18:27)
[2019-08-09] MEDS ORDERED: ONDANSETRON 4 MG/2 ML VIAL IVP STA (18:27)
--- NOTE | 2019-08-09 18:37 | ED ---
General Adult HPI - General Chief complaint: Abdominal Pain Stated complaint: vomiting Time Seen by Provider: 08/09/19 18:07 Source: patient Mode of arrival: ambulatory Limitations: no limitations - History of Present Illness Initial comments: Patient's a 49-year-old male here presenting to the emergency Department with complaints of not being a little to eat or drink much today. He states he's also been nauseous and vomited a few times today. He states he feels dehydrated. Patient was here 2 days ago for upper respiratory type symptoms. All imaging was reviewed shows no acute abnormalities. Patient states he is having some mild stomach pain. He denies chest pain, shortness of breath, diarrhea. He denies fevers. He has no other complaints at this time. Upon arrival to the ER his vitals are stable. - Related Data Home Medications Medication Instructions Recorded Confirmed ARIPiprazole [Abilify] 10 mg PO HS 01/19/19 05/22/19 OLANZapine [ZyPREXA] 10 mg PO HS 01/19/19 05/22/19 Ergocalciferol (Vitamin D2) 50,000 unit PO MO 02/23/19 05/22/19 [Vitamin D2] Cholestyramine/Aspartame 4 gm PO BID 04/12/19 05/22/19 [Cholestyramine Light Powder] Fenofibrate 160 mg PO DAILY 04/12/19 05/22/19 Omeprazole 20 mg PO BID 04/12/19 05/22/19 Albuterol Sulfate [Proair 2 puff PO RT-Q6H PRN 04/30/19 05/22/19 Respiclick] Ondansetron HCl [Zofran] 4 mg PO DAILY PRN 04/30/19 05/22/19 metFORMIN HCL 1,000 mg PO BID 04/30/19 05/22/19 Hydrocortisone Cream 1 applic TOPICAL BID 05/22/19 05/22/19 [Hydrocortisone 2.5% Cream] Ibuprofen 400 mg PO BID PRN 05/22/19 05/22/19 Thera M Enhanced 1 tab PO DAILY 05/22/19 05/22/19 Allergies Allergy/AdvReac Type Severity Reaction Status Date / Time ciprofloxacin Allergy Unknown Nausea Verified 08/09/19 17:41 dicyclomine HCl [From Bentyl] Allergy Unknown Dyspnea Verified 08/09/19 17:41 latex Allergy Unknown Rash/Hives Verified 08/09/19 17:41 Macrolide Antibiotics Allergy Unknown Nausea Verified 08/09/19 17:41 diphenhydramine HCl Allergy Anaphylaxis Verified 08/09/19 17:41 [From Benadryl] adhesive AdvReac Unknown Itching Verified 08/09/19 17:41 sulfamethoxazole AdvReac Unknown Unknown Verified 08/09/19 17:41 [From Bactrim] trimethoprim [From Bactrim] AdvReac Unknown Unknown Verified 08/09/19 17:41 Review of Systems ROS Statement: Those systems with pertinent positive or pertinent negative responses have been documented in the HPI. ROS Other: All systems not noted in ROS Statement are negative. Past Medical History Past Medical History: Asthma, Chest Pain / Angina, COPD, CVA/TIA, Diabetes Mellitus, GERD/Reflux, Hearing Disorder / Deafness, Hyperlipidemia, Hyp ertension, Liver Disease, Osteoarthritis (OA), Pneumonia, Seizure Disorder, Sleep Apnea/CPAP/BIPAP Additional Past Medical History / Comment(s): Cyst on kidney, uses cpap (22) History of Any Multi-Drug Resistant Organisms: None Reported Past Surgical History: Heart Catheterization, Orthopedic Surgery Additional Past Surgical History / Comment(s): Cysts removed, left thumb surgery Past Anesthesia/Blood Transfusion Reactions: Motion Sickness, Postoperative Nausea & Vomiting (PONV) Past Psychological History: Anxiety, Bipolar, Depression, Schizophrenia Smoking Status: Current every day smoker Past Alcohol Use History: Rare Past Drug Use History: None Reported - Past Family History Brother(s) Family Medical History: Diabetes Mellitus Additional Family Medical History / Comment(s): Patient has 2 brothers. One from complications from diabetes. The second is alive with diabetes. Sister(s) Family Medical History: Cancer Additional Family Medical History / Comment(s): Patient has one sister with breast cancer. Patient does not have any children. Father Family Medical History: Cancer Additional Family Medical History / Comment(s): Father in his 40s or 50s from colon cancer. Mother Family Medical History: Cancer Additional Family Medical History / Comment(s): Mother at age 68 from lung cancer. General Exam - General Exam Comments Initial Comments: GENERAL: Well-appearing, well-nourished and in no acute distress. HEAD: Atraumatic, normocephalic. EYES: Pupils equal round and reactive to light, extraocular movements intact, sclera anicteric, conjunctiva are normal. ENT: TMs normal, nares patent, oropharynx clear without exudates. Moist mucous membranes. NECK: Normal range of motion, supple without lymphadenopathy or JVD. LUNGS: Breath sounds clear to auscultation bilaterally and equal. No wheezes rales or rhonchi. HEART: Regular rate and rhythm without murmurs, rubs or gallops. ABDOMEN: Soft, nontender, normoactive bowel sounds. No guarding, no rebound. No masses appreciated. EXTREMITIES: Normal range of motion, no pitting or edema. No clubbing or cyanosis. NEUROLOGICAL: Normal speech, normal gait. PSYCH: Normal mood, normal affect. SKIN: Warm, Dry, normal turgor, no rashes or lesions noted. Limitations: no limitations Course Vital Signs 08/09/19 17:36 Temperature 97.8 F Pulse Rate 77 Respiratory 16 Rate Blood Pressure 122/69 O2 Sat by Pulse 95 Oximetry Medical Decision Making - Medical Decision Making Patient is a 49-year-old male presenting with decreased appetite, nausea, vomiting since this morning. Patient was here 2 days ago for upper respiratory type symptoms, imaging and labs are reviewed no acute abnormalities were found. Patient was also follow-up PCP and did not. His vitals are stable today. Exam is unremarkable. Patient was given some fluids, Zofran. He reports improvement in his symptoms and wishes to go home. Labs show no acute abnormalities. Patient is stable for discharge at this time. Return parameters were discussed with the patient and he verbalized understanding. Case discussed with Dr. Saucedo. - Lab Data Result diagrams: 08/09/19 19:00 Lab Results 08/09/19 Range/Units 19:00 Sodium 135 L (137-145) mmol/L Potassium 4.4 (3.5-5.1) mmol/L Chloride 104 (98-107) mmol/L Carbon Dioxide 28 (22-30) mmol/L Anion Gap 3 mmol/L BUN 15 (9-20) mg/dL Creatinine 0.68 (0.66-1.25) mg/dL Est GFR (CKD-EPI)AfAm >90 (>60 ml/min/1.73 sqM) Est GFR (CKD-EPI)NonAf >90 (>60 ml/min/1.73 sqM) Glucose 200 H (74-99) mg/dL Calcium 9.6 (8.4-10.2) mg/dL Total Bilirubin 0.3 (0.2-1.3) mg/dL AST 46 (17-59) U/L ALT 73 H (4-49) U/L Alkaline Phosphatase 107 (38-126) U/L Total Protein 6.7 (6.3-8.2) g/dL Albumin 4.3 (3.5-5.0) g/dL Disposition Clinical Impression: Nausea & vomiting Disposition: HOME SELF-CARE Condition: Stable Instructions (If sedation given, give patient instructions): Acute Nausea and Vomiting (ED) Additional Instructions: Please return to the Emergency Department if symptoms worsen or any other concerns. Follow-up with primary care doctor. Is patient prescribed a controlled substance at d/c from ED?: No Referrals: [facility] [Primary Care Provider] - 1-2 days
[2019-08-09 19:21] LABS: ALT 73 U/L (4-49); AST 46 U/L (17-59); African American GFR (CKD) >90 (>60 ml/min/1.73 sqM); Albumin 4.3 g/dL (3.5-5.0); Alkaline Phosphatase 107 U/L (38-126); Anion Gap 3 mmol/L; Blood Urea Nitrogen 15 mg/dL (9-20); Calcium 9.6 mg/dL (8.4-10.2); Carbon Dioxide 28 mmol/L (22-30); Chloride 104 mmol/L (98-107); Glucose 200 mg/dL (74-99); Non-African American GFR(CKD) >90 (>60 ml/min/1.73 sqM); Potassium 4.4 mmol/L (3.5-5.1); Sodium 135 mmol/L (137-145); Total Bilirubin 0.3 mg/dL (0.2-1.3); Total Protein 6.7 g/dL (6.3-8.2)
[2019-08-09] MEDS ORDERED: ONDANSETRON 4 MG ODT STARTER PACK 2 TAB BTL PO STA (20:02)
[2019-08-09 20:36] VITALS: BP 120/87; PULSE 89; RESP 19; TEMP 98.4
== END 2019-08-09 20:35 | disposition home or self-care (01) ==
LOC: EC 17:20
DX: R11.2 Nausea with vomiting, unspecified (principal); R10.9 Unspecified abdominal pain; J44.9 Chronic obstructive pulmonary disease, unspecified; E11.9 Type 2 diabetes mellitus without complications; I10 Essential (primary) hypertension; E78.5 Hyperlipidemia, unspecified; G47.30 Sleep apnea, unspecified; Z79.899 Other long term (current) drug therapy; F17.200 Nicotine dependence, unspecified, uncomplicated; Z88.1 Allergy status to other antibiotic agents; Z88.8 Allergy status to other drugs, medicaments and biological substances; Z91.040 Latex allergy status; Z91.048 Other nonmedicinal substance allergy status; Z88.2 Allergy status to sulfonamides; Z99.89 Dependence on other enabling machines and devices; Z86.73 Personal history of transient ischemic attack (TIA), and cerebral infarction without residual deficits
CPT/HCPCS: 36415; 80053; 99284; 96374; 96375; 96361; J2405; J1885; S0119

== ENCOUNTER → 2019-08-16 | Outpatient (CLI) | payer MEDICARE, OTHER ==
--- NOTE | 2019-08-16 09:49 | XR ---
EXAMINATION TYPE: XR knee complete LT DATE OF EXAM: 08/16/2019 COMPARISON: 12/03/2016 HISTORY: Left knee pain TECHNIQUE: Three-view left knee FINDINGS: Joint spaces are preserved. No acute fractures or dislocations are evident. No significant joint effusion is evident. IMPRESSION: 1. Normal three-view left knee. 2. No significant change from comparison of 2017.
[2019-08-16 16:58] LABS: Gliadin AB IgA, Deaminated NEGATIVE (NEGATIVE); Gliadin AB IgA, Unit 6.1 U/mL; Gliadin AB IgG, Deaminated NEGATIVE (NEGATIVE)
== END | disposition home or self-care (01) ==
LOC: LABWHC1 08:58
PROVIDERS: ATTEND Nurse Practitioner
DX: M25.562 Pain in left knee (principal); K52.9 Noninfective gastroenteritis and colitis, unspecified
CPT/HCPCS: 36415; 83516; 83630; 83993; 85652; 86140; 87045; 87046; 87328; 87329

== ENCOUNTER 2019-08-18 16:25 | Emergency (ER) | payer MEDICARE, OTHER ==
[2019-08-18 16:32] VITALS: TEMP 97.5
[2019-08-18] MEDS ORDERED: ONDANSETRON ODT 4 MG TAB PO STA (17:18)
[2019-08-18] MEDS ORDERED: ACETAMINOPHEN TAB 500 MG TAB PO STA (17:18)
[2019-08-18] MEDS ORDERED: MAG HYDROX/AL HYDROX/SIMETH 30 ML, HYOSCYAMINE ELIXIR 10 ML PO STA ×2 (17:18)
[2019-08-18] MEDS ORDERED: IBUPROFEN 800 MG TAB PO STA (17:18)
--- NOTE | 2019-08-18 17:18 | ED ---
Abdominal Pain HPI - General Chief Complaint: Abdominal Pain Stated Complaint: stomach issues Time Seen by Provider: 08/18/19 16:34 Source: patient, RN notes reviewed, old records reviewed Mode of arrival: ambulatory Limitations: no limitations - History of Present Illness Initial Comments: This is a 49-year-old male DF for evaluation of epigastric burning abdominal pain history of same with reflux and GERD mild gastritis. Recent surgery did have a virus unsure of Kiner cause no significant treatment done. Patient is well-known to our ER for multiple different reasons including similar type abdominal pains as well as some psychiatric illness. Patient denying any fevers no nausea vomiting or diarrhea MD Complaint: abdominal pain, other (Gastritis) -: days(s) Location: epigastric Radiation: epigastric Migration to: epigastric Severity: mild Severity scale (1-10): 2 Quality: aching, burning Consistency: intermittent Improves With: nothing Worsens With: nothing Associated Symptoms: denies other symptoms - Related Data Home Medications Medication Instructions Recorded Confirmed ARIPiprazole [Abilify] 10 mg PO HS 01/19/19 05/22/19 OLANZapine [ZyPREXA] 10 mg PO HS 01/19/19 05/22/19 Ergocalciferol (Vitamin D2) 50,000 unit PO MO 02/23/19 05/22/19 [Vitamin D2] Cholestyramine/Aspartame 4 gm PO BID 04/12/19 05/22/19 [Cholestyramine Light Powder] Fenofibrate 160 mg PO DAILY 04/12/19 05/22/19 Omeprazole 20 mg PO BID 04/12/19 05/22/19 Albuterol Sulfate [Proair 2 puff PO RT-Q6H PRN 04/30/19 05/22/19 Respiclick] Ondansetron HCl [Zofran] 4 mg PO DAILY PRN 04/30/19 05/22/19 metFORMIN HCL 1,000 mg PO BID 04/30/19 05/22/19 Hydrocortisone Cream 1 applic TOPICAL BID 05/22/19 05/22/19 [Hydrocortisone 2.5% Cream] Ibuprofen 400 mg PO BID PRN 05/22/19 05/22/19 Thera M Enhanced 1 tab PO DAILY 05/22/19 05/22/19 Allergies Allergy/AdvReac Type Severity Reaction Status Date / Time ciprofloxacin Allergy Unknown Nausea Verified 08/18/19 16:28 dicyclomine HCl [From Bentyl] Allergy Unknown Dyspnea Verified 08/18/19 16:28 latex Allergy Unknown Rash/Hives Verified 08/18/19 16:28 Macrolide Antibiotics Allergy Unknown Nausea Verified 08/18/19 16:28 diphenhydramine HCl Allergy Anaphylaxis Verified 08/18/19 16:28 [From Benadryl] adhesive AdvReac Unknown Itching Verified 08/18/19 16:28 sulfamethoxazole AdvReac Unknown Unknown Verified 08/18/19 16:28 [From Bactrim] trimethoprim [From Bactrim] AdvReac Unknown Unknown Verified 08/18/19 16:28 Review of Systems ROS Statement: Those systems with pertinent positive or pertinent negative responses have been documented in the HPI. ROS Other: All systems not noted in ROS Statement are negative. Past Medical History Past Medical History: Asthma, Chest Pain / Angina, COPD, CVA/TIA, Diabetes Mellitus, GERD/Reflux, Hearing Disorder / Deafness, Hyperlipidemia, Hyp ertension, Liver Disease, Osteoarthritis (OA), Pneumonia, Seizure Disorder, Sleep Apnea/CPAP/BIPAP Additional Past Medical History / Comment(s): Cyst on kidney, uses cpap (22) History of Any Multi-Drug Resistant Organisms: None Reported Past Surgical History: Heart Catheterization, Orthopedic Surgery Additional Past Surgical History / Comment(s): Cysts removed, left thumb surgery Past Anesthesia/Blood Transfusion Reactions: Motion Sickness, Postoperative Nausea & Vomiting (PONV) Past Psychological History: Anxiety, Bipolar, Depression, Schizophrenia Smoking Status: Current every day smoker Past Alcohol Use History: Rare Past Drug Use History: None Reported - Past Family History Brother(s) Family Medical History: Diabetes Mellitus Additional Family Medical History / Comment(s): Patient has 2 brothers. One from complications from diabetes. The second is alive with diabetes. Sister(s) Family Medical History: Cancer Additional Family Medical History / Comment(s): Patient has one sister with breast cancer. Patient does not have any children. Father Family Medical History: Cancer Additional Family Medical History / Comment(s): Father in his 40s or 50s from colon cancer. Mother Family Medical History: Cancer Additional Family Medical History / Comment(s): Mother at age 68 from lung cancer. General Exam Limitations: no limitations General appearance: alert, in no apparent distress Head exam: Present: atraumatic, normocephalic, normal inspection Eye exam: Present: normal appearance, PERRL, EOMI. Absent: scleral icterus, conjunctival injection, periorbital swelling ENT exam: Present: normal exam, mucous membranes moist Neck exam: Present: normal inspection. Absent: tenderness, meningismus, lymphadenopathy Respiratory exam: Present: normal lung sounds bilaterally. Absent: respiratory distress, wheezes, rales, rhonchi, stridor Cardiovascular Exam: Present: regular rate, normal rhythm, normal heart sounds. Absent: systolic murmur, diastolic murmur, rubs, gallop, clicks GI/Abdominal exam: Present: soft, normal bowel sounds. Absent: distended, tenderness, guarding, rebound, rigid Extremities exam: Present: normal inspection, full ROM, normal capillary refill. Absent: tenderness, pedal edema, joint swelling, calf tenderness Back exam: Present: normal inspection Neurological exam: Present: alert, oriented X3, CN II-XII intact Psychiatric exam: Present: normal affect, normal mood Skin exam: Present: warm, dry, intact, normal color. Absent: rash Course Vital Signs 08/18/19 08/18/19 16:28 17:48 Temperature 97.5 F L Pulse Rate 85 71 Respiratory 18 16 Rate Blood Pressure 123/69 117/75 O2 Sat by Pulse 97 96 Oximetry - Reevaluation(s) Reevaluation #1: 08/18/19 17:17 Medical records reviewed Medical Decision Making - Medical Decision Making 49 male with recurrent gastritis-type symptoms x-rays negative here in the ER patient symptoms are resolved EKG is otherwise normal patient can be discharged home - EKG Data -: EKG Interpreted by Me (EKG shows sinus rhythm rate of 70, ME 1:30, QRS 90, QTc 408) - Radiology Data Radiology results: report reviewed (X-ray abdominal series chest negative for acute disease), image reviewed Disposition Clinical Impression: Chest pain, Gastritis Disposition: HOME SELF-CARE Condition: Good Instructions (If sedation given, give patient instructions): Gastritis (ED) Is patient prescribed a controlled substance at d/c from ED?: No Referrals: [facility] [Primary Care Provider] - 1-2 days
[2019-08-18 17:49] VITALS: BP 117/75; PULSE 71; RESP 16
--- NOTE | 2019-08-18 18:06 | XR ---
EXAMINATION TYPE: XR abdomen acute w cxr DATE OF EXAM: 08/18/2019 COMPARISON: 07/10/2019 HISTORY: Abdominal pain TECHNIQUE: 4 views FINDINGS: Heart and mediastinum are normal. Lungs are clear. Diaphragm is normal. Bowel gas pattern i s normal. There is no sign of intestinal obstruction or pneumoperitoneum. Fecal pattern is normal. Th ere is no evidence of a mass. There is phlebolith in the pelvis on the left side. Bony structures are intact. There are no pathologic calcifications over the kidneys. IMPRESSION: Nonacute abdomen. No change. Normal chest.
== END 2019-08-18 18:43 | disposition home or self-care (01) ==
LOC: EC 16:25
DX: K29.70 Gastritis, unspecified, without bleeding (principal); R07.9 Chest pain, unspecified; J44.9 Chronic obstructive pulmonary disease, unspecified; E11.9 Type 2 diabetes mellitus without complications; K21.9 Gastro-esophageal reflux disease without esophagitis; H91.90 Unspecified hearing loss, unspecified ear; E78.5 Hyperlipidemia, unspecified; I10 Essential (primary) hypertension; M19.90 Unspecified osteoarthritis, unspecified site; G47.30 Sleep apnea, unspecified; F31.9 Bipolar disorder, unspecified; F20.9 Schizophrenia, unspecified; F41.9 Anxiety disorder, unspecified; F17.200 Nicotine dependence, unspecified, uncomplicated; Z88.1 Allergy status to other antibiotic agents; Z88.2 Allergy status to sulfonamides; Z88.8 Allergy status to other drugs, medicaments and biological substances; Z91.040 Latex allergy status; Z91.048 Other nonmedicinal substance allergy status; Z79.1 Long term (current) use of non-steroidal anti-inflammatories (NSAID); Z79.52 Long term (current) use of systemic steroids; Z79.84 Long term (current) use of oral hypoglycemic drugs; Z79.899 Other long term (current) drug therapy; Z95.818 Presence of other cardiac implants and grafts; Z99.89 Dependence on other enabling machines and devices; Z80.0 Family history of malignant neoplasm of digestive organs
CPT/HCPCS: 74022; 93005; 99284

== ENCOUNTER → 2019-08-24 | Day surgery (SDC) | payer MEDICARE, OTHER ==
[2019-08-22 09:46] VITALS: BMI 32.5
[~2019-08-24] MED LIST: LACTATED RINGERS 1,000 ML IV ONE; LACTATED RINGERS 1,000 ML IV SCH; LIDOCAINE 1% 20 ML VIAL (10MG/ML) FOR IV START INTRADERMA PRN; LIDOCAINE 1% INJ 10MG/ML (20 ML MDV) ONE; PROPOFOL 10 MG/ML 20 ML VIAL IV ONE
[2019-08-24 07:16] VITALS: TEMP 97.3
[2019-08-24 07:28] LABS: Glucose,Whole Blood 126 mg/dL (75-99)
[2019-08-24 09:47] VITALS: RESP 16
--- NOTE | 2019-08-24 09:52 | P.PCN ---
Date of Procedure: 08/24/19 Description of Procedure: Brief history: Patient is a pleasant 49-year-old male presenting for outpatient EGD and colonoscopy for evaluation of diarrhea. Patient previously had colonoscopy in 11/2013 with findings of retained stool and polypectomy as well as anal fistula noted verge patient has undergone surgical intervention. He does report family history of colon cancer in his father. Procedure performed: Esophagogastroduodenoscopy with biopsy Colonoscopy with biopsy and polypectomy Estimated blood loss: Minimal. Preoperative diagnosis: Diarrhea, altered bowel function, last colonoscopy 2013, personal history of colon polyps, family history of colon cancer Anesthesia: MAC Procedure: After informed consent was obtained from the patient was brought into the endoscopy unit and IV sedation was administered by anesthesia under continuous monitoring. Initially upper endoscopy was done. The Olympus GF 190 video endoscope was inserted into the mouth and esophagus intubated without any difficulty and was gradually advanced into the stomach and duodenum and carefully examined. The bulb and second part of the duodenum appeared normal, with biopsies taken to rule out celiac sprue. The scope was then withdrawn into the stomach adequately insufflated with air and upon careful examination the antrum and body, cardia and fundus appeared normal, except for linear erythema and punctate erythema in the antrum and body suggestive of moderate gastritis with biopsies taken. The scope was then withdrawn into the esophagus. The GE junction was located at 40 cm to the incisors. LA grade a distal esophagitis just proximal to the GE junction with biopsies of the GE junction/distal esophagus taken. It appeared regular with no erythema erosions or ulcerations. Rest of the esophagus appeared normal. Patient tolerated the procedure well. At this time the patient continued to remain sedation. Initial digital rectal examination was normal. Olympus CF 190 video colonoscope was then inserted into the rectum and gradually advanced to the cecum without any difficulty. Careful examination was performed as the scope was gradually being withdrawn. The prep was good. The terminal ileum was intubated and appeared normal with biopsies taken. The cecum, ascending colon, transverse colon, descending colon, sigmoid colon and rectum appeared normal, with biopsies of the right and left colon taken in the setting of altered bowel function and diarrhea. Diminutive polyps measuring 1-2 mm to in the splenic flexure one polyp, 2 in the sigmoid colon and one in the rectum removed with cold forcep polypectomy. 11 mm flat ascending colon polyp removed with cold snare polypectomy. 4 mm transverse colon polyp removed with cold snare polypectomy. 3 mm rectal polyp removed with cold snare polypectomy. 4 mm descending colon polyp removed with cold snare polypectomy. Retroflexion was performed in the rectum and no lesions were noted. Patient tolerated the procedure well. Impression: 1. Moderate gastritis antrum and body, biopsied. LA grade a distal esophagitis with biopsies of the GE junction/distal esophagus. Duodenal biopsies. 2. 4 diminutive polyps removed with cold forcep polypectomy and for small to large polyps removed with cold snare polypectomy (please see body of report for location, size and technique of polypectomy). Random biopsies taken of a normal-appearing colon and the right colon, left colon and a normal-appearing terminal ileum. Recommendations: Findings of this examination were discussed with the . Okay to resume diet. Okay to resume medications. Follow-up in gastroenterology clinic as previously scheduled. Would recommend repeat colonoscopy in 1-3 years pending pathology from polypectomies.
[2019-08-24 10:11] VITALS: BP 122/84; PULSE 69
== END ==
LOC: ORWHC2ENDO 06:32
PROVIDERS: ATTEND Internal Medicine
DX: D12.2 Benign neoplasm of ascending colon (principal); K63.5 Polyp of colon; K29.50 Unspecified chronic gastritis without bleeding; K20.0 Eosinophilic esophagitis; K21.0 Gastro-esophageal reflux disease with esophagitis; Z86.010 Personal history of colon polyps; Z80.0 Family history of malignant neoplasm of digestive organs; I10 Essential (primary) hypertension; E78.5 Hyperlipidemia, unspecified; J44.9 Chronic obstructive pulmonary disease, unspecified; G47.33 Obstructive sleep apnea (adult) (pediatric); Z99.89 Dependence on other enabling machines and devices; F17.200 Nicotine dependence, unspecified, uncomplicated; F98.8 Other specified behavioral and emotional disorders with onset usually occurring in childhood and adolescence; H91.90 Unspecified hearing loss, unspecified ear; Z86.73 Personal history of transient ischemic attack (TIA), and cerebral infarction without residual deficits; Z79.84 Long term (current) use of oral hypoglycemic drugs; Z79.1 Long term (current) use of non-steroidal anti-inflammatories (NSAID); Z79.899 Other long term (current) drug therapy; Z88.2 Allergy status to sulfonamides; Z88.8 Allergy status to other drugs, medicaments and biological substances; Z88.1 Allergy status to other antibiotic agents; Z91.040 Latex allergy status
CPT/HCPCS: 88305; 45380; 45385; 43239; J2001; J2704

== ENCOUNTER 2019-08-26 13:26 | Observation (INO) | payer MEDICARE, OTHER ==
[2019-08-26 14:20] LABS: Basophils % (A) 0 %; Eosinophils # (A) 0.2 k/uL (0-0.7); Eosinophils % (A) 4 %; HCT 39.5 % (39.0-53.0); Lymphocytes # (A) 1.2 k/uL (1.0-4.8); Lymphocytes % (A) 19 %; MCH 30.6 pg (25.0-35.0); MCHC 35.3 g/dL (31.0-37.0); MCV 86.7 fL (80.0-100.0); Mean Platelet Volume 7.2; Monocytes # (A) 0.3 k/uL (0-1.0); Monocytes % (A) 5 %; Neutrophils # (A) 4.5 k/uL (1.3-7.7); Neutrophils % (A) 70 %; Platelet Count 214 k/uL (150-450); RBC 4.56 m/uL (4.30-5.90); RDW 12.8 % (11.5-15.5); WBC 6.4 k/uL (3.8-10.6)
[2019-08-26 14:30] LABS: INR 0.9 (<1.2); Prothrombin Time 9.5 sec (9.0-12.0)
--- NOTE | 2019-08-26 14:36 | ED ---
Chest Pain HPI - General Chief Complaint: Chest Pain Stated Complaint: chest pain Time Seen by Provider: 08/26/19 13:30 Source: patient Mode of arrival: wheelchair Limitations: no limitations - History of Present Illness Initial Comments: The patient is a 49-year-old male past history of asthma, angina, COPD and stroke presents to the emergency room with reported chest pain and epigastric abdominal pain. The epigastric abdominal pain is chronic for the patient. He has been seen multiple times in the emergency room for similar complaint. He had an EGD 2 days ago. States that his pain comes in intermittent waves. This morning he also developed sudden onset of 10 out of 10, crushing chest pain. Denies a previous history of cardiac disease. Cannot provide much history in regards to when his last stress test was. Review the patient's record demonstrates that he had a cardiac cath in 2018 which she had no coronary disease. He admits to nausea without vomiting. No ripping or tearing sensation is intact. Denies any unilateral numbness or weakness. No cough, hemoptysis. There are no other alleviating, precipitating or modifying factors - Related Data Home Medications Medication Instructions Recorded Confirmed ARIPiprazole [Abilify] 10 mg PO HS 01/19/19 08/26/19 OLANZapine [ZyPREXA] 10 mg PO HS 01/19/19 08/26/19 Fenofibrate 160 mg PO DAILY 04/12/19 08/26/19 Ondansetron HCl [Zofran] 4 mg PO Q8H PRN 04/30/19 08/26/19 metFORMIN HCL 1,000 mg PO BID 04/30/19 08/26/19 Albuterol Inhaler [Ventolin Hfa 2 puff INHALATION RT-Q6H PRN 08/22/19 08/26/19 Inhaler] Loratadine 10 mg PO DAILY 08/22/19 08/26/19 Cholestyramine (with Sugar) 4 gm PO BID 08/26/19 08/26/19 [Cholestyramine Powder] Omeprazole [PriLOSEC] 40 mg PO DAILY 08/26/19 08/26/19 Simethicone 80 mg PO QID 08/26/19 08/26/19 Allergies Allergy/AdvReac Type Severity Reaction Status Date / Time ciprofloxacin Allergy Unknown Nausea Verified 08/26/19 14:17 dicyclomine HCl [From Bentyl] Allergy Unknown Dyspnea Verified 08/26/19 14:17 latex Allergy Unknown Rash/Hives Verified 08/26/19 14:17 Macrolide Antibiotics Allergy Unknown Nausea Verified 08/26/19 14:17 diphenhydramine HCl Allergy Anaphylaxis Verified 08/26/19 14:17 [From Benadryl] adhesive AdvReac Unknown Itching Verified 08/26/19 14:17 sulfamethoxazole AdvReac Unknown Unknown Verified 08/26/19 14:17 [From Bactrim] trimethoprim [From Bactrim] AdvReac Unknown Unknown Verified 08/26/19 14:17 Review of Systems ROS Statement: Those systems with pertinent positive or pertinent negative responses have been documented in the HPI. ROS Other: All systems not noted in ROS Statement are negative. EKG Findings - EKG Comments: EKG Findings:: EKG demonstrates a normal sinus rhythm with a ventricular rate of any 2. TN interval 138. QRS 94. QTC of 422. No acute ST segment elevations or depressions concerning for ischemic changes. Q wave in lead 3. Past Medical History Past Medical History: Asthma, Chest Pain / Angina, COPD, CVA/TIA, Diabetes Mellitus, GERD/Reflux, Hearing Disorder / Deafness, Hyperlipidemia, Hyperten kat, Liver Disease, Osteoarthritis (OA), Pneumonia, Seizure Disorder, Sleep Apnea/CPAP/BIPAP Additional Past Medical History / Comment(s): states CVA at 35 yrs old with left sided weakness- uses cane., states seizure at 35 yrs old., DDD- back & neck pain., carpal tunnel syndrome., Cyst on kidney, uses cpap., states having abdominal pain with diarrhea and nausea ., Lives with his sister and has [employer] public guardian. History of Any Multi-Drug Resistant Organisms: None Reported Past Surgical History: Heart Catheterization, Orthopedic Surgery Additional Past Surgical History / Comment(s): Cysts removed, left thumb surgery Past Anesthesia/Blood Transfusion Reactions: Motion Sickness, Postoperative Nausea & Vomiting (PONV) Past Psychological History: Anxiety, Bipolar, Depression, Schizophrenia Smoking Status: Current every day smoker Past Alcohol Use History: Rare Past Drug Use History: None Reported - Past Family History Brother(s) Family Medical History: Diabetes Mellitus Additional Family Medical History / Comment(s): Patient has 2 brothers. One from complications from diabetes. The second is alive with diabetes. Sister(s) Family Medical History: Cancer Additional Family Medical History / Comment(s): Patient has one sister with breast cancer. Patient does not have any children. Father Family Medical History: Cancer Additional Family Medical History / Comment(s): Father in his 40s or 50s from colon cancer. Mother Family Medical History: Cancer Additional Family Medical History / Comment(s): Mother at age 68 from lung cancer. General Exam Limitations: no limitations Course Vital Signs 08/26/19 08/26/19 08/26/19 13:30 14:00 14:30 Temperature 98.1 F Pulse Rate 74 64 Respiratory 16 18 Rate Blood Pressure 111/76 O2 Sat by Pulse 100 95 97 Oximetry 08/26/19 08/26/19 08/26/19 15:00 15:30 16:00 Temperature Pulse Rate 67 74 Respiratory 16 17 18 Rate Blood Pressure 101/75 106/72 O2 Sat by Pulse 97 97 Oximetry 08/26/19 08/26/19 16:10 16:30 Temperature Pulse Rate 69 71 Respiratory 18 18 Rate Blood Pressure 106/72 119/84 O2 Sat by Pulse 96 97 Oximetry Chest Pain MDM - MDM Upon arrival the patient was placed in room 5. There is some physical exam was performed. 12-lead EKG was performed. Laboratory studies were conducted and the patient went for chest x-ray. Laboratory studies demonstrate a lipase of 1890. Chest x-ray demonstrates no acute Shwetha process. CT of the patient's abdomen and pelvis demonstrates no acute abdominal process. Moderate fatty infiltration of the liver. Splenic cyst. Increase is unremarkable. I did discuss results with the patient. I did recommend overnight observation ordered trend the patient's troponins. The patient received fluid hydration and lipase will be reevaluated morning. Patient did agree to this. I discussed case with Dr. Yañez who accepted admission. Patient is awaiting a bed on the floor Disposition Clinical Impression: Chest pain, Abdominal pain, Elevated lipase Disposition: ADMITTED IP TO THIS HOSP Condition: Stable Is patient prescribed a controlled substance at d/c from ED?: No Decision to Admit Reason: Admit from EC Decision Date: 08/26/19 Decision Time: 16:32
[2019-08-26 14:37] LABS: ALT 58 U/L (4-49); AST 37 U/L (17-59); African American GFR (CKD) >90 (>60 ml/min/1.73 sqM); Albumin 3.8 g/dL (3.5-5.0); Alkaline Phosphatase 63 U/L (38-126); Anion Gap 5 mmol/L; Blood Urea Nitrogen 9 mg/dL (9-20); Carbon Dioxide 23 mmol/L (22-30); Chloride 111 mmol/L (98-107); Glucose 110 mg/dL (74-99); Magnesium 1.9 mg/dL (1.6-2.3); Non-African American GFR(CKD) >90 (>60 ml/min/1.73 sqM); Partial Thromboplastin Time 21.1 sec (22.0-30.0); Sodium 139 mmol/L (137-145); Total Bilirubin 0.3 mg/dL (0.2-1.3); Total Protein 6.2 g/dL (6.3-8.2)
--- NOTE | 2019-08-26 14:41 | XR ---
EXAMINATION TYPE: XR chest 2V DATE OF EXAM: 08/26/2019 COMPARISON: 08/07/2019 INDICATION: Chest pain TECHNIQUE: Frontal and lateral views of the chest are obtained. FINDINGS: The heart size is normal. The pulmonary vasculature is normal. The lungs are clear. IMPRESSION: 1. No acute pulmonary process.
--- NOTE | 2019-08-26 15:43 | CT ---
EXAMINATION TYPE: CT abdomen pelvis w con DATE OF EXAM: 08/26/2019 COMPARISON: 01/10/2018 INDICATION: Abdominal pain, elevated lipase. DLP: 1098.7 mGycm, Automated exposure control for dose reduction was used. CONTRAST: 100 mL of Isovue 300. Study performed without Oral Contrast TECHNIQUE: Axial images were obtained from above the diaphragm to the pubic rami in the axial plane a t 5 mm thick sections. Reconstructed images are reviewed on the computer in the coronal plane. FINDINGS: Limited CT sections are obtained the lung bases. The lung bases are clear. CT ABDOMEN: Liver: Moderate fatty infiltration is present throughout the liver. No discrete masses or cysts are e vident. Spleen: There is a 4.2 cm cyst on the anterior spleen. Pancreas: Normal Adrenal glands: The adrenal glands are normal. Gallbladder: Normal Kidneys: No masses are evident. No hydronephrosis is present. Small cortical renal cysts are presen t bilaterally. Delayed images were obtained through the kidneys, which remain unremarkable. Aorta: Normal Inferior vena cava: Normal. CT PELVIS: Loops of bowel within the abdomen and pelvis are normal. The study is performed without oral cont rast limiting bowel evaluation. Appendix: Normal as visualized. Urinary bladder: Normal. Genitourinary structures: Prostate is normal. Osseous structures: No suspicious osseous abnormality. IMPRESSIONS: 1. No acute abdominal process. 2. Moderate fatty infiltration of liver. 3. Splenic cyst. 4. Pancreas appears unremarkable
[2019-08-26] MEDS ORDERED: NITROGLYCERIN SL TABS 0.4 MG TAB SUBLINGUAL STA (16:15)
[2019-08-26] MEDS ORDERED: ASPIRIN 81 MG PO STA (16:15)
[2019-08-26] MEDS ORDERED: NALOXONE 0.4 MG/ML 1 ML VIAL IV PRN (16:32)
[2019-08-26] MEDS ORDERED: ALBUTEROL NEBULIZED 2.5 MG/3 ML INHALATION PRN (16:34)
[2019-08-26] MEDS: SODIUM CHLORIDE 0.9% 1,000 ML IV SCH (16:49)
[2019-08-26] MEDS ORDERED: PANTOPRAZOLE 40 MG TABLET PO STA (17:24)
[2019-08-26] MEDS ORDERED: ONDANSETRON 4 MG/2 ML VIAL IM STA (17:25)
[2019-08-26] MEDS ORDERED: ONDANSETRON 4 MG/2 ML VIAL IVP STA (17:30)
[2019-08-26] MEDS ORDERED: SIMETHICONE 80 MG CHEWABLE PO PRN (18:01)
[2019-08-26] MEDS ORDERED: ONDANSETRON 4 MG TAB PO PRN (18:01)
[2019-08-26] MEDS: INSULIN ASPART (NovoLOG) 100 UNIT/ML VIAL SQ SCH ×2 (18:10→21:28)
[2019-08-26 20:24] LABS: Glucose,Whole Blood 200 mg/dL (75-99)
[2019-08-26] MEDS ORDERED: OLANZapine 10 MG TAB PO SCH (21:00)
[2019-08-26] MEDS ORDERED: ARIPiprazole 10 MG TAB PO SCH (21:00)
[2019-08-26] MEDS: CHOLESTYRAMINE (WITH SUGAR) 4 GM PACKET PO SCH (21:27)
[2019-08-26] MEDS: metFORMIN 500 MG TAB PO SCH (21:27)
[2019-08-27] MEDS: SODIUM CHLORIDE 0.9% 1,000 ML IV SCH ×2 (03:32→12:00)
[2019-08-27 05:51] LABS: Glucose,Whole Blood 193 mg/dL (75-99)
[2019-08-27] MEDS: INSULIN ASPART (NovoLOG) 100 UNIT/ML VIAL SQ SCH ×3 (06:43→16:55)
[2019-08-27] MEDS ORDERED: PANTOPRAZOLE 40 MG TABLET PO SCH (07:30)
[2019-08-27] MEDS: CHOLESTYRAMINE (WITH SUGAR) 4 GM PACKET PO SCH (08:44)
[2019-08-27] MEDS: metFORMIN 500 MG TAB PO SCH (08:44)
[2019-08-27 08:47] LABS: ALT 55 U/L (4-49)
[2019-08-27] MEDS ORDERED: LORATADINE 10 MG TAB PO SCH (09:00)
[2019-08-27] MEDS ORDERED: FENOFIBRATE 160 MG TAB PO SCH (09:00)
[2019-08-27 09:05] VITALS: RESP 20; TEMP 97.6
[2019-08-27 10:47] VITALS: BP 153/73; PULSE 61
--- NOTE | 2019-08-27 11:54 | P.CRDCN ---
History of Present Illness Consult date: 08/27/19 Consult reason: chest pain History of present illness: The patient is a 49-year-old male with past medical history of chest discomfort, dyslipidemia, CVA, and COPD, who presented to the emergency room with worsening epigastric discomfort. He has a history of epigastric pain, therefore he underwent an EGD/colonoscopy earlier this week with Dr. Herrera. He was found to have mild gastritis, as well as several colon polyps which were removed. He states the pain was nonexertional in nature and was not associated with additional symptoms. EKG showed sinus mechanism without ST or T-wave changes. Cardiac enzymes were negative 3. Chest x-ray shows no acute pulmonary process. Currently he states he is doing well and is lying comfortably in bed. He denies any current chest discomfort. He also denies any shortness of breath, palpitations, dizziness, or lightheadedness. He denies any dark/bloody stools or hemoptysis. PAST MEDICAL HISTORY: COPD, current smoker, chest discomfort, CVA, hypertriglyceridemia REVIEW OF SYSTEMS: No fever or chills. No cough or expectoration. No diaphoresis. Patient denies headache, dizziness, blurred vision, double vision. Positive for stomach discomfort. No nausea, vomiting. No hematochezia. No hematemesis. Denies any black stools or blood in his stools. Denies dysuria or hematuria. No muscle weakness or numbness. PHYSICAL EXAMINATION: This is a 49-year-old male in no apparent distress at the time of my examination. HEENT: Head is atraumatic, normocephalic. Pupils are equal, round. Sclerae anicteric. Conjunctivae are clear. Mucous membranes of the mouth are moist. Neck is supple. There is no jugular venous distention. No carotid bruit is heard. CHEST EXAMINATION: Lungs are clear to auscultation. No chest wall tenderness is noted on palpation or with deep breathing. HEART EXAMINATION: Heart regular rate and rhythm. S1, S2 heard. No murmurs, gallops or rub. ABDOMEN: Soft, nontender. Bowel sounds are heard. No organomegaly noted. EXTREMITIES: 2+ peripheral pulses with no evidence of peripheral edema and no calf tenderness noted. NEUROLOGIC EXAMINATION: Patient is awake, alert and oriented x3. LABORATORY DATA: WBC 6.4, hemoglobin 14.0 hematocrit 39.5, platelet 214, sodium 139, potassium 4.0, chloride 111, BUN 9, creatinine 0.67, AST 37, ALT 58, BNP 62 , troponin negative 3, lipase 1890 FINAL ASSESSMENT AND PLAN: #1 chest discomfort, ACS ruled out #2 chronic epigastric discomfort, recent diagnosis of gastritis on EGD #3 hypertriglyceridemia, currently on fenofibrate PLAN: We will continue the current medication regimen and consider further ca rdiac workup outpatient. Consideration should be made for postoperative complications due to recent EGD/colonoscopy prior to discharge. No further recommendations from the cardiac standpoint. 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 History of Any Multi-Drug Resistant Organisms: None Reported Past Surgical History: Heart Catheterization, Orthopedic Surgery Additional Past Surgical History / Comment(s): Cysts removed, left thumb surgery, colonoscopy 08/24/2019 Past Anesthesia/Blood Transfusion Reactions: Motion Sickness, Postoperative Nausea & Vomiting (PONV) Smoking Status: Current every day smoker - Past Family History Brother(s) Family Medical History: Diabetes Mellitus Additional Family Medical History / Comment(s): Patient has 2 brothers. One from complications from diabetes. The second is alive with diabetes. Sister(s) Family Medical History: Cancer Additional Family Medical History / Comment(s): Patient has one sister with breast cancer. Patient does not have any children. Father Family Medical History: Cancer Additional Family Medical History / Comment(s): Father in his 40s or 50s from colon cancer. Mother Family Medical History: Cancer Additional Family Medical History / Comment(s): Mother at age 68 from lung cancer. Medications and Allergies Home Medications Medication Instructions Recorded Confirmed Type ARIPiprazole [Abilify] 10 mg PO HS 01/19/19 08/26/19 History OLANZapine [ZyPREXA] 10 mg PO HS 01/19/19 08/26/19 History Fenofibrate 160 mg PO DAILY 04/12/19 08/26/19 History Ondansetron HCl [Zofran] 4 mg PO Q8H PRN 04/30/19 08/26/19 History metFORMIN HCL 1,000 mg PO BID 04/30/19 08/26/19 History Albuterol Inhaler [Ventolin Hfa 2 puff INHALATION RT-Q6H PRN 08/22/19 08/26/19 History Inhaler] Loratadine 10 mg PO DAILY 08/22/19 08/26/19 History Cholestyramine (with Sugar) 4 gm PO BID 08/26/19 08/26/19 History [Cholestyramine Powder] Simethicone 80 mg PO QID 08/26/19 08/26/19 History Omeprazole [PriLOSEC] 40 mg PO AC-BRKFST #14 capsule. 08/27/19 Rx Allergies Allergy/AdvReac Type Severity Reaction Status Date / Time ciprofloxacin Allergy Unknown Nausea Verified 08/26/19 14:17 dicyclomine HCl [From Bentyl] Allergy Unknown Dyspnea Verified 08/26/19 14:17 latex Allergy Unknown Rash/Hives Verified 08/26/19 14:17 Macrolide Antibiotics Allergy Unknown Nausea Verified 08/26/19 14:17 diphenhydramine HCl Allergy Anaphylaxis Verified 08/26/19 14:17 [From Benadryl] adhesive AdvReac Unknown Itching Verified 08/26/19 14:17 sulfamethoxazole AdvReac Unknown Unknown Verified 08/26/19 14:17 [From Bactrim] trimethoprim [From Bactrim] AdvReac Unknown Unknown Verified 08/26/19 14:17 Physical Exam Vitals: Vital Signs Temp Pulse Pulse Resp BP BP Pulse Ox 08/27/19 10:46 61 20 153/73 99 08/27/19 08:00 97.6 F 70 20 116/75 100 08/27/19 03:36 61 16 08/27/19 03:34 97 F L 61 16 114/73 96 08/27/19 00:00 58 L 16 119/67 98 08/26/19 20:00 98 F 62 20 117/81 98 08/26/19 18:25 98.5 F 62 16 104/70 97 08/26/19 17:15 76 16 08/26/19 16:30 71 18 119/84 97 08/26/19 16:10 69 18 106/72 96 08/26/19 16:00 74 18 106/72 97 08/26/19 15:30 17 101/75 08/26/19 15:00 67 16 97 08/26/19 14:30 64 18 97 08/26/19 14:00 95 08/26/19 13:30 98.1 F 74 16 111/76 100 Intake and Output 08/26/19 08/27/19 08/27/19 22:59 06:59 14:59 Intake Total 240 240 Balance 240 240 Intake: Oral 240 240 Other: # Voids 1 1 1 Weight 86.183 kg 83.7 kg Results 08/26/19 14:10 08/26/19 14:10 Cardiac Enzymes 08/26/19 08/26/19 08/26/19 Range/Units 14:10 14:10 20:26 AST 37 (17-59) U/L Troponin I <0.012 <0.012 (0.000-0.034) ng/mL 08/27/19 Range/Units 01:52 AST (17-59) U/L Troponin I <0.012 (0.000-0.034) ng/mL Coagulation 08/26/19 Range/Units 14:10 PT 9.5 (9.0-12.0) sec APTT 21.1 L (22.0-30.0) sec CBC 08/26/19 Range/Units 14:10 WBC 6.4 (3.8-10.6) k/uL RBC 4.56 (4.30-5.90) m/uL Hgb 14.0 (13.0-17.5) gm/dL Hct 39.5 (39.0-53.0) % Plt Count 214 (150-450) k/uL Comprehensive Metabolic Panel 08/26/19 08/27/19 Range/Units 14:10 08:20 Sodium 139 (137-145) mmol/L Potassium 4.0 (3.5-5.1) mmol/L Chloride 111 H (98-107) mmol/L Carbon Dioxide 23 (22-30) mmol/L BUN 9 (9-20) mg/dL Creatinine 0.67 (0.66-1.25) mg/dL Glucose 110 H (74-99) mg/dL Calcium 9.0 (8.4-10.2) mg/dL AST 37 (17-59) U/L ALT 58 H 55 H (4-49) U/L Alkaline Phosphatase 63 (38-126) U/L Total Protein 6.2 L (6.3-8.2) g/dL Albumin 3.8 (3.5-5.0) g/dL Current Medications Generic Name Dose Route Start Last Admin Trade Name Freq PRN Reason Stop Dose Admin Albuterol Sulfate 2.5 mg 08/26/19 16:34 08/26/19 17:14 Ventolin Nebulized INHALATION 2.5 mg RT-Q6H PRN Administration Shortness Of Breath Aripiprazole 10 mg 08/26/19 21:00 08/26/19 21:28 Abilify PO 10 mg HS PJ Administration Cholestyramine Resin 4 gm 08/26/19 21:00 08/27/19 08:44 Questran PO 4 gm BID PJ Administration Fenofibrate 160 mg 08/27/19 09:00 08/27/19 08:44 Lofibra PO 160 mg DAILY PJ Administration Sodium Chloride 1,000 mls @ 100 mls/hr 08/26/19 16:45 08/27/19 03:32 Saline 0.9% IV 100 mls/hr .Q10H PJ Administration Insulin Aspart 0 unit 08/26/19 17:30 08/27/19 06:43 Novolog SQ 2 unit ACHS PJ Administration Protocol Loratadine 10 mg 08/27/19 09:00 08/27/19 08:44 Claritin PO 10 mg DAILY PJ Administration Metformin HCl 1,000 mg 08/26/19 21:00 08/27/19 08:44 Glucophage PO 1,000 mg BID PJ Administration Naloxone HCl 0.2 mg 08/26/19 16:32 Narcan IV Q2M PRN Opioid Reversal Olanzapine 10 mg 08/26/19 21:00 08/26/19 21:28 Zyprexa PO 10 mg HS PJ Administration Ondansetron HCl 4 mg 08/26/19 18:01 08/27/19 08:47 Zofran PO 4 mg Q8H PRN Administration Nausea Pantoprazole Sodium 40 mg 08/27/19 07:30 08/27/19 06:43 Protonix PO 40 mg AC-BRKFST PJ Administration Simethicone 80 mg 08/26/19 18:01 Mylicon Chew PO QID PRN Bloating Intake and Output 08/26/19 08/27/19 08/27/19 22:59 06:59 14:59 Intake Total 240 240 Balance 240 240 Intake: Oral 240 240 Other: # Voids 1 1 1 Weight 86.183 kg 83.7 kg 08/26/19 14:10 08/26/19 14:10
[2019-08-27 12:06] LABS: Glucose,Whole Blood 96 mg/dL (75-99)
--- NOTE | 2019-08-27 12:15 | P.DS ---
Providers Date of admission: 08/26/19 16:32 Attending physician: Randall Zacarias MD Consults: 08/26/19 16:33 Consult Physician Urgent Consulting Provider: [facility] Consult Reason/Comments: acute chest pain Do you want consulting provider notified?: Yes Primary care physician: [facility] Course: please review H&P for further details Patient Condition at Discharge: Stable Plan - Discharge Summary Discharge Rx Participant: No New Discharge Prescriptions: New Omeprazole [PriLOSEC] 40 mg PO AC-BRKFST #14 capsule. Discontinued Omeprazole [PriLOSEC] 40 mg PO DAILY No Action ARIPiprazole [Abilify] 10 mg PO HS OLANZapine [ZyPREXA] 10 mg PO HS Fenofibrate 160 mg PO DAILY Ondansetron HCl [Zofran] 4 mg PO Q8H PRN PRN Reason: Nausea metFORMIN HCL 1,000 mg PO BID Albuterol Inhaler [Ventolin Hfa Inhaler] 2 puff INHALATION RT-Q6H PRN PRN Reason: Shortness Of Breath Loratadine 10 mg PO DAILY Simethicone 80 mg PO QID Cholestyramine (with Sugar) [Cholestyramine Powder] 4 gm PO BID Discharge Medication List ARIPiprazole [Abilify] 10 mg PO HS 01/19/19 [History] OLANZapine [ZyPREXA] 10 mg PO HS 01/19/19 [History] Fenofibrate 160 mg PO DAILY 04/12/19 [History] Ondansetron HCl [Zofran] 4 mg PO Q8H PRN 04/30/19 [History] metFORMIN HCL 1,000 mg PO BID 04/30/19 [History] Albuterol Inhaler [Ventolin Hfa Inhaler] 2 puff INHALATION RT-Q6H PRN 08/22/19 [History] Loratadine 10 mg PO DAILY 08/22/19 [History] Cholestyramine (with Sugar) [Cholestyramine Powder] 4 gm PO BID 08/26/19 [History] Simethicone 80 mg PO QID 08/26/19 [History] Omeprazole [PriLOSEC] 40 mg PO AC-BRKFST #14 capsule. 08/27/19 [Rx] Follow up Appointment(s)/Referral(s): Tony Pagan MD [STAFF PHYSICIAN] - [facility] [Primary Care Provider] - 1-2 days Patient Instructions/Handouts: How to Stop Smoking (DC) Discharge Disposition: HOME SELF-CARE
--- NOTE | 2019-08-27 12:15 | P.HPIM ---
History of Present Illness 49-year-old male came in with compensative epigastric abdominal discomfort burning sensation has been going on for sometime restated by eating food and he gets this pain whenever he eats pizza. Patient does have mild right upper kecia drant tenderness although there is no obvious Durán's sign that is positive because of that I'm opting ultrasound of the gallbladder and liver patient was evaluated by cardiology to rule out a concurrent syndromes patient chest pain is noncardiac no associate diaphoresis no patient does have nausea denied any associated shortness of breath lightheadedness. Negative cardiac enzymes and troponins were negative. Review of Systems REVIEW OF SYSTEMS: CONSTITUTIONAL: No fever, no malaise, no fatigue. HEENT: No recent visual problems or hearing problems. Denied any sore throat. CARDIOVASCULAR: No chest pain, orthopnea, PND, no palpitations, no syncope. PULMONARY: No shortness of breath, no cough, no hemoptysis. GASTROINTESTINAL: as mentioned in HPI NEUROLOGICAL: No headaches, no weakness, no numbness. HEMATOLOGICAL: Denies any bleeding or petechiae. GENITOURINARY: Denies any burning micturition, frequency, or urgency. MUSCULOSKELETAL/RHEUMATOLOGICAL: Denies any joint pain, swelling, or any muscle pain. ENDOCRINE: Denies any polyuria or polydipsia. The rest of the 14-point review of systems is negative. Past Medical History Past Medical History: Asthma, Chest Pain / Angina, COPD, CVA/TIA, Diabetes Mellitus, GERD/Reflux, Hearing Disorder / Deafness, Hyperlipidemia, Hypertension, Liver Disease, Osteoarthritis (OA), Pneumonia, Seizure Disorder, Sleep Apnea/CPAP/BIPAP Additional Past Medical History / Comment(s): states CVA at 35 yrs old with left sided weakness- uses cane., states seizure at 35 yrs old., DDD- back & neck pain., carpal tunnel syndrome., Cyst on kidney, uses cpap., states having abdominal pain with diarrhea and nausea ., Lives with his sister and has [employer] pub lic guardian. History of Any Multi-Drug Resistant Organisms: None Reported Past Surgical History: Heart Catheterization, Orthopedic Surgery Additional Past Surgical History / Comment(s): Cysts removed, left thumb surgery, colonoscopy 08/24/2019 Past Anesthesia/Blood Transfusion Reactions: Motion Sickness, Postoperative Nausea & Vomiting (PONV) Smoking Status: Current every day smoker - Past Family History Brother(s) Family Medical History: Diabetes Mellitus Additional Family Medical History / Comment(s): Patient has 2 brothers. One from complications from diabetes. The second is alive with diabetes. Sister(s) Family Medical History: Cancer Additional Family Medical History / Comment(s): Patient has one sister with breast cancer. Patient does not have any children. Father Family Medical History: Cancer Additional Family Medical History / Comment(s): Father in his 40s or 50s from colon cancer. Mother Family Medical History: Cancer Additional Family Medical History / Comment(s): Mother at age 68 from lung cancer. Medications and Allergies Home Medications Medication Instructions Recorded Confirmed Type ARIPiprazole [Abilify] 10 mg PO HS 01/19/19 08/26/19 History OLANZapine [ZyPREXA] 10 mg PO HS 01/19/19 08/26/19 History Fenofibrate 160 mg PO DAILY 04/12/19 08/26/19 History Ondansetron HCl [Zofran] 4 mg PO Q8H PRN 04/30/19 08/26/19 History metFORMIN HCL 1,000 mg PO BID 04/30/19 08/26/19 History Albuterol Inhaler [Ventolin Hfa 2 puff INHALATION RT-Q6H PRN 08/22/19 08/26/19 History Inhaler] Loratadine 10 mg PO DAILY 08/22/19 08/26/19 History Cholestyramine (with Sugar) 4 gm PO BID 08/26/19 08/26/19 History [Cholestyramine Powder] Simethicone 80 mg PO QID 08/26/19 08/26/19 History Omeprazole [PriLOSEC] 40 mg PO AC-BRKFST #14 capsule. 08/27/19 Rx Allergies Allergy/AdvReac Type Severity Reaction Status Date / Time ciprofloxacin Allergy Unknown Nausea Verified 08/26/19 14:17 dicyclomine HCl [From Bentyl] Allergy Unknown Dyspnea Verified 08/26/19 14:17 latex Allergy Unknown Rash/Hives Verified 08/26/19 14:17 Macrolide Antibiotics Allergy Unknown Nausea Verified 08/26/19 14:17 diphenhydramine HCl Allergy Anaphylaxis Verified 08/26/19 14:17 [From Benadryl] adhesive AdvReac Unknown Itching Verified 08/26/19 14:17 sulfamethoxazole AdvReac Unknown Unknown Verified 08/26/19 14:17 [From Bactrim] trimethoprim [From Bactrim] AdvReac Unknown Unknown Verified 08/26/19 14:17 Physical Exam Vitals: Vital Signs Temp Pulse Pulse Resp BP BP Pulse Ox 08/27/19 12:00 61 20 153/73 99 08/27/19 10:46 61 20 153/73 99 08/27/19 08:00 97.6 F 70 20 116/75 100 08/27/19 03:36 61 16 08/27/19 03:34 97 F L 61 16 114/73 96 08/27/19 00:00 58 L 16 119/67 98 08/26/19 20:00 98 F 62 20 117/81 98 08/26/19 18:25 98.5 F 62 16 104/70 97 08/26/19 17:15 76 16 08/26/19 16:30 71 18 119/84 97 08/26/19 16:10 69 18 106/72 96 08/26/19 16:00 74 18 106/72 97 08/26/19 15:30 17 101/75 08/26/19 15:00 67 16 97 08/26/19 14:30 64 18 97 08/26/19 14:00 95 08/26/19 13:30 98.1 F 74 16 111/76 100 Intake and Output 08/26/19 08/27/19 08/27/19 22:59 06:59 14:59 Intake Total 240 240 Balance 240 240 Intake: Oral 240 240 Other: # Voids 1 1 1 Weight 86.183 kg 83.7 kg PHYSICAL EXAMINATION: GENERAL: The patient is alert and oriented x3, not in any acute distress. Well developed, well nourished. HEENT: Pupils are round and equally reacting to light. EOMI. No scleral icterus. No conjunctival pallor. Normocephalic, atraumatic. No pharyngeal erythema. No thyromegaly. CARDIOVASCULAR: S1 and S2 present. No murmurs, rubs, or gallops. PULMONARY: Chest is clear to auscultation, no wheezing or crackles. ABDOMEN: Soft, nontender, nondistended, normoactive bowel sounds. No palpable organomegaly. MUSCULOSKELETAL: No joint swelling or deformity. EXTREMITIES: No cyanosis, clubbing, or pedal edema. NEUROLOGICAL: Gross neurological examination did not reveal any focal deficits. SKIN: No rashes. Results CBC & Chem 7: 08/26/19 14:10 08/26/19 14:10 Labs: Abnormal Lab Results - Last 24 Hours (Table) 08/26/19 08/26/19 08/26/19 Range/Units 14:10 14:10 20:22 APTT 21.1 L (22.0-30.0) sec Chloride 111 H (98-107) mmol/L Glucose 110 H (74-99) mg/dL POC Glucose (mg/dL) 200 H (75-99) mg/dL ALT 58 H (4-49) U/L Total Protein 6.2 L (6.3-8.2) g/dL Lipase 1890 H (23-300) U/L 08/27/19 08/27/19 Range/Units 05:49 08:20 APTT (22.0-30.0) sec Chloride (98-107) mmol/L Glucose (74-99) mg/dL POC Glucose (mg/dL) 193 H (75-99) mg/dL ALT 55 H (4-49) U/L Total Protein (6.3-8.2) g/dL Lipase (23-300) U/L Thrombosis Risk Factor Assmnt - Choose All That Apply Any of the Below Risk Factors Present?: Yes Each Factor Represents 1 point: Age 41-60 years Thrombosis Risk Factor Assessment Total Risk Factor Score: 1 Thrombosis Risk Factor Assessment Level: Low Risk Assessment and Plan Plan: -epigastric abdominal pain and burning sensation patient probably has gastritis will rule out cholelithiasis constraining his pain is frustrated with mostly fat ty food. If ultrasound is negative patient will be discharged if it's positive patient will defer to just surgery. Patient will be discharged with 14 days of proton pump inhibitor. Patient doesn't have any Prilosec at home. -COPD without any acute exacerbation continued nicotine use: Counseling was provided -Hyperlipidemia -seizure disorder, not on any antiseizure medications -Sleep apnea -Type 2 diabetes mellitus patient will be discharged later today as mentioned above
--- NOTE | 2019-08-27 14:50 | US ---
EXAMINATION TYPE: US gallbladder DATE OF EXAM: 08/27/2019 COMPARISON: CT abdomen and pelvis August 26, 2019. CLINICAL HISTORY: r/o gall stones. Abdomen pain. EXAM MEASUREMENTS: Liver Length: 18.3 cm Gallbladder Wall: 0.1 cm CBD: 0.4 cm Right Kidney: 11.7 x 4.3 x 4.3 cm Pancreas: Tail obscured by overlying bowel gas. Heterogenous Liver: Increased attenuation, decreased visualization of vessels suggestive of fatty infiltrate. Ec hogenic. Enlarged. Coarse. Limited visualization of posterior right lobe. Gallbladder: wnl Evidence for sonographic Durán's sign: neg CBD: wnl Right Kidney: Two cystic appearing lesions seen, both lateral. Largest- 1.6 x 1.3 x 1.6 cm Visualized pancreas slightly heterogeneous, portions of distal body and tail suboptimally evaluated d ue to overlying bowel gas per technologist. Liver is markedly heterogeneously hyperechoic. No Surr[place] ding ascites. Findings correlate with diffuse fatty infiltration on recent CT. Gallbladder seen witho ut shadowing mobile gallstones. Limited images of the right kidney show no gross hydronephrosis. IMPRESSION: No shadowing mobile gallstones or ultrasound evidence for acute cholecystitis.
[2019-08-27] MEDS ORDERED: ACETAMINOPHEN TAB 325 MG TAB PO PRN (15:13)
[2019-08-27 16:48] LABS: Glucose,Whole Blood 114 mg/dL (75-99)
== END 2019-08-27 17:51 | disposition home or self-care (01) ==
LOC: EC 13:26 → 3SCARD 16:32
PROVIDERS: ADMIT Internal Medicine; ATTEND Internal Medicine
DX: R07.89 Other chest pain (principal); R10.13 Epigastric pain; R19.7 Diarrhea, unspecified; R11.0 Nausea; J44.9 Chronic obstructive pulmonary disease, unspecified; I10 Essential (primary) hypertension; E78.5 Hyperlipidemia, unspecified; E78.1 Pure hyperglyceridemia; E11.9 Type 2 diabetes mellitus without complications; K21.9 Gastro-esophageal reflux disease without esophagitis; H91.90 Unspecified hearing loss, unspecified ear; K76.0 Fatty (change of) liver, not elsewhere classified; R74.8 Abnormal levels of other serum enzymes; M19.90 Unspecified osteoarthritis, unspecified site; F41.9 Anxiety disorder, unspecified; F31.9 Bipolar disorder, unspecified; F20.9 Schizophrenia, unspecified; G56.03 Carpal tunnel syndrome, bilateral upper limbs; G47.30 Sleep apnea, unspecified; Z99.89 Dependence on other enabling machines and devices; F17.200 Nicotine dependence, unspecified, uncomplicated; Z83.3 Family history of diabetes mellitus; Z80.3 Family history of malignant neoplasm of breast; Z80.0 Family history of malignant neoplasm of digestive organs; Z80.1 Family history of malignant neoplasm of trachea, bronchus and lung; Z79.84 Long term (current) use of oral hypoglycemic drugs; Z79.899 Other long term (current) drug therapy; I69.354 Hemiplegia and hemiparesis following cerebral infarction affecting left non-dominant side; Z88.1 Allergy status to other antibiotic agents; Z91.040 Latex allergy status; Z88.2 Allergy status to sulfonamides; Z88.8 Allergy status to other drugs, medicaments and biological substances; Z91.09 Other allergy status, other than to drugs and biological substances
CPT/HCPCS: 96360; 96361 ×2; 93005 ×2; 96374; 99285; 36415; 83880; 80053; 83690 ×2; 83735; 84460; 84484 ×2; 85025; 85610; 85730; 71046; 76705; 74177; G0378 ×2

== ENCOUNTER 2019-08-30 14:20 | Emergency (ER) | payer MEDICARE, OTHER ==
[2019-08-30 15:07] LABS: INR 0.9 (<1.2); Partial Thromboplastin Time 22.6 sec (22.0-30.0); Prothrombin Time 9.7 sec (9.0-12.0)
[2019-08-30 15:08] LABS: ALT 44 U/L (4-49); AST 28 U/L (17-59); African American GFR (CKD) >90 (>60 ml/min/1.73 sqM); Albumin 4.2 g/dL (3.5-5.0); Alkaline Phosphatase 74 U/L (38-126); Anion Gap 6 mmol/L; Blood Urea Nitrogen 10 mg/dL (9-20); Calcium 9.8 mg/dL (8.4-10.2); Carbon Dioxide 25 mmol/L (22-30); Chloride 107 mmol/L (98-107); Glucose 89 mg/dL (74-99); Non-African American GFR(CKD) >90 (>60 ml/min/1.73 sqM); Potassium 4.1 mmol/L (3.5-5.1); Sodium 138 mmol/L (137-145); Total Bilirubin 0.3 mg/dL (0.2-1.3); Total Protein 6.6 g/dL (6.3-8.2)
[2019-08-30 15:09] LABS: Basophils % (A) 0 %; Eosinophils # (A) 0.2 k/uL (0-0.7); Eosinophils % (A) 3 %; HCT 41.8 % (39.0-53.0); HGB 14.7 gm/dL (13.0-17.5); Lymphocytes # (A) 1.4 k/uL (1.0-4.8); Lymphocytes % (A) 21 %; MCH 30.1 pg (25.0-35.0); MCHC 35.1 g/dL (31.0-37.0); MCV 85.7 fL (80.0-100.0); Mean Platelet Volume 7.5; Monocytes # (A) 0.3 k/uL (0-1.0); Monocytes % (A) 5 %; Neutrophils # (A) 4.9 k/uL (1.3-7.7); Neutrophils % (A) 70 %; Platelet Count 261 k/uL (150-450); RBC 4.87 m/uL (4.30-5.90); RDW 12.9 % (11.5-15.5)
--- NOTE | 2019-08-30 15:36 | ED ---
General Adult HPI - General Chief complaint: Chest Pain Stated complaint: Chest pain Time Seen by Provider: 08/30/19 14:25 Source: patient, RN notes reviewed, old records reviewed Mode of arrival: ambulatory Limitations: no limitations - History of Present Illness Initial comments: This is a 49-year-old male who presents emergency department stating that he has had chest pain ever since he left the hospital. Patient states he was recently and had pancreatitis and was discharged. Days ago. Patient states his pain is never gone away so he decided to come back to the hospital to be reevaluated. Patient states the pain is in the central region of his chest but he points to the epigastric area. Patient denies any nausea vomiting. Patient denies any shortness of breath or difficulty breathing. Patient denies any fever chills or cough per patient denies any vomiting or diarrhea. Patient states pain is worse with palpation and taking a deep breath. Patient states if he remains still he does not have any pain. - Related Data Home Medications Medication Instructions Recorded Confirmed ARIPiprazole [Abilify] 10 mg PO HS 01/19/19 08/26/19 OLANZapine [ZyPREXA] 10 mg PO HS 01/19/19 08/26/19 Fenofibrate 160 mg PO DAILY 04/12/19 08/26/19 Ondansetron HCl [Zofran] 4 mg PO Q8H PRN 04/30/19 08/26/19 metFORMIN HCL 1,000 mg PO BID 04/30/19 08/26/19 Albuterol Inhaler [Ventolin Hfa 2 puff INHALATION RT-Q6H PRN 08/22/19 08/26/19 Inhaler] Loratadine 10 mg PO DAILY 08/22/19 08/26/19 Cholestyramine (with Sugar) 4 gm PO BID 08/26/19 08/26/19 [Cholestyramine Powder] Simethicone 80 mg PO QID 08/26/19 08/26/19 Previous Rx's Medication Instructions Recorded Omeprazole [PriLOSEC] 40 mg PO AC-BRKFST #14 capsule. 08/27/19 Allergies Allergy/AdvReac Type Severity Reaction Status Date / Time ciprofloxacin Allergy Unknown Nausea Verified 08/30/19 14:24 dicyclomine HCl [From Bentyl] Allergy Unknown Dyspnea Verified 08/30/19 14:24 latex Allergy Unknown Rash/Hives Verified 08/30/19 14:24 Macrolide Antibiotics Allergy Unknown Nausea Verified 08/30/19 14:24 diphenhydramine HCl Allergy Anaphylaxis Verified 08/30/19 14:24 [From Benadryl] adhesive AdvReac Unknown Itching Verified 08/30/19 14:24 sulfamethoxazole AdvReac Unknown Unknown Verified 08/30/19 14:24 [From Bactrim] trimethoprim [From Bactrim] AdvReac Unknown Unknown Verified 08/30/19 14:24 Review of Systems ROS Statement: Those systems with pertinent positive or pertinent negative responses have been documented in the HPI. ROS Other: All systems not noted in ROS Statement are negative. 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 History of Any Multi-Drug Resistant Organisms: None Reported Past Surgical History: Heart Catheterization, Orthopedic Surgery Additional Past Surgical History / Comment(s): Cysts removed, left thumb surgery, colonoscopy 08/24/2019 Past Anesthesia/Blood Transfusion Reactions: Motion Sickness, Postoperative Nausea & Vomiting (PONV) Past Psychological History: Anxiety, Bipolar, Depression, Schizophrenia Smoking Status: Current every day smoker Past Alcohol Use History: None Reported Past Drug Use History: None Reported - Past Family History Brother(s) Family Medical History: Diabetes Mellitus Additional Family Medical History / Comment(s): Patient has 2 brothers. One from complications from diabetes. The second is alive with diabetes. Sister(s) Family Medical History: Cancer Additional Family Medical History / Comment(s): Patient has one sister with breast cancer. Patient does not have any children. Father Family Medical History: Cancer Additional Family Medical History / Comment(s): Father in his 40s or 50s from colon cancer. Mother Family Medical History: Cancer Additional Family Medical History / Comment(s): Mother at age 68 from lung cancer. General Exam - General Exam Comments Initial Comments: GENERAL: Patient is well-developed and well-nourished. Patient is nontoxic and well- hydrated and is in no acute distress. ENT: Neck is soft and supple. No significant lymphadenopathy is noted. Oropharynx is clear. Moist mucous membranes. Neck has full range of motion without eliciting any pain. EYES: The sclera were anicteric and conjunctiva were pink and moist. Extraocular movements were intact and pupils were equal round and reactive to light. Eyelids were unremarkable. PULMONARY: Unlabored respirations. Good breath sounds bilaterally. No audible rales rhonchi or wheezing was noted. CARDIOVASCULAR: There is a regular rate and rhythm without any murmurs gallops or rubs. ABDOMEN: Patient has mild epigastric abdominal pain SKIN: Skin is clear with no lesions or rashes and otherwise unremarkable. NEUROLOGIC: Patient is alert and oriented x3. Cranial nerves II through XII are grossly intact. Motor and sensory are also intact. Normal speech, volume and content. Symmetrical smile. MUSCULOSKELETAL: Normal extremities with adequate strength and full range of motion. LYMPHATICS: No significant lymphadenopathy is noted PSYCHIATRIC: Normal psychiatric evaluation. Limitations: no limitations Course Vital Signs 08/30/19 08/30/19 08/30/19 14:22 14:24 15:24 Temperature 98.7 F Pulse Rate 77 62 Respiratory 18 20 18 Rate Blood Pressure 127/89 107/76 O2 Sat by Pulse 99 96 Oximetry 08/30/19 08/30/19 16:44 17:05 Temperature 98.5 F Pulse Rate 65 Respiratory 18 20 Rate Blood Pressure 121/76 O2 Sat by Pulse 98 Oximetry Medical Decision Making - Medical Decision Making EKG showed normal sinus rhythm at 71 bpm LA interval 232 QRS is 98 QT interval 390 QTC is 423. Patient's EKG shows no ST segment elevation or depression or T wave normalities are noted. Patient states pain is pleuritic in nature and has been that way for about 6 days. Patient states there is no complete relief of the pain. Patient states breathing makes it worse and touching it makes it worse. Patient will follow-up with primary medical care doctor - Lab Data Result diagrams: 08/30/19 14:35 08/30/19 14:35 Lab Results 08/30/19 08/30/19 08/30/19 Range/Units 14:35 14:35 14:35 WBC 7.0 (3.8-10.6) k/uL RBC 4.87 (4.30-5.90) m/uL Hgb 14.7 (13.0-17.5) gm/dL Hct 41.8 (39.0-53.0) % MCV 85.7 (80.0-100.0) fL MCH 30.1 (25.0-35.0) pg MCHC 35.1 (31.0-37.0) g/dL RDW 12.9 (11.5-15.5) % Plt Count 261 (150-450) k/uL Neutrophils % 70 % Lymphocytes % 21 % Monocytes % 5 % Eosinophils % 3 % Basophils % 0 % Neutrophils # 4.9 (1.3-7.7) k/uL Lymphocytes # 1.4 (1.0-4.8) k/uL Monocytes # 0.3 (0-1.0) k/uL Eosinophils # 0.2 (0-0.7) k/uL Basophils # 0.0 (0-0.2) k/uL PT 9.7 (9.0-12.0) sec INR 0.9 (<1.2) APTT 22.6 (22.0-30.0) sec Sodium 138 (137-145) mmol/L Potassium 4.1 (3.5-5.1) mmol/L Chloride 107 (98-107) mmol/L Carbon Dioxide 25 (22-30) mmol/L Anion Gap 6 mmol/L BUN 10 (9-20) mg/dL Creatinine 0.73 (0.66-1.25) mg/dL Est GFR (CKD-EPI)AfAm >90 (>60 ml/min/1.73 sqM) Est GFR (CKD-EPI)NonAf >90 (>60 ml/min/1.73 sqM) Glucose 89 (74-99) mg/dL Calcium 9.8 (8.4-10.2) mg/dL Total Bilirubin 0.3 (0.2-1.3) mg/dL AST 28 (17-59) U/L ALT 44 (4-49) U/L Alkaline Phosphatase 74 (38-126) U/L Troponin I (0.000-0.034) ng/mL Total Protein 6.6 (6.3-8.2) g/dL Albumin 4.2 (3.5-5.0) g/dL Lipase (23-300) U/L 08/30/19 08/30/19 Range/Units 14:35 14:35 WBC (3.8-10.6) k/uL RBC (4.30-5.90) m/uL Hgb (13.0-17.5) gm/dL Hct (39.0-53.0) % MCV (80.0-100.0) fL MCH (25.0-35.0) pg MCHC (31.0-37.0) g/dL RDW (11.5-15.5) % Plt Count (150-450) k/uL Neutrophils % % Lymphocytes % % Monocytes % % Eosinophils % % Basophils % % Neutrophils # (1.3-7.7) k/uL Lymphocytes # (1.0-4.8) k/uL Monocytes # (0-1.0) k/uL Eosinophils # (0-0.7) k/uL Basophils # (0-0.2) k/uL PT (9.0-12.0) sec INR (<1.2) APTT (22.0-30.0) sec Sodium (137-145) mmol/L Potassium (3.5-5.1) mmol/L Chloride (98-107) mmol/L Carbon Dioxide (22-30) mmol/L Anion Gap mmol/L BUN (9-20) mg/dL Creatinine (0.66-1.25) mg/dL Est GFR (CKD-EPI)AfAm (>60 ml/min/1.73 sqM) Est GFR (CKD-EPI)NonAf (>60 ml/min/1.73 sqM) Glucose (74-99) mg/dL Calcium (8.4-10.2) mg/dL Total Bilirubin (0.2-1.3) mg/dL AST (17-59) U/L ALT (4-49) U/L Alkaline Phosphatase (38-126) U/L Troponin I <0.012 (0.000-0.034) ng/mL Total Protein (6.3-8.2) g/dL Albumin (3.5-5.0) g/dL Lipase 92 (23-300) U/L Disposition Clinical Impression: Epigastric pain Disposition: HOME SELF-CARE Condition: Good Instructions (If sedation given, give patient instructions): Abdominal Pain (ED) Is patient prescribed a controlled substance at d/c from ED?: No Referrals: [facility] [Primary Care Provider] - 1-2 days Time of Disposition: 16:41
[2019-08-30 16:45] VITALS: BP 121/76; PULSE 65; TEMP 98.5
[2019-08-30 17:06] VITALS: RESP 20
== END 2019-08-30 17:08 | disposition home or self-care (01) ==
LOC: EC 14:20
DX: R10.13 Epigastric pain (principal); F31.9 Bipolar disorder, unspecified; F20.9 Schizophrenia, unspecified; F41.9 Anxiety disorder, unspecified; E78.5 Hyperlipidemia, unspecified; E11.9 Type 2 diabetes mellitus without complications; J44.9 Chronic obstructive pulmonary disease, unspecified; K21.9 Gastro-esophageal reflux disease without esophagitis; I10 Essential (primary) hypertension; M19.90 Unspecified osteoarthritis, unspecified site; I25.2 Old myocardial infarction; I69.354 Hemiplegia and hemiparesis following cerebral infarction affecting left non-dominant side; G47.30 Sleep apnea, unspecified; Z79.51 Long term (current) use of inhaled steroids; Z79.899 Other long term (current) drug therapy; Z79.84 Long term (current) use of oral hypoglycemic drugs; Z88.1 Allergy status to other antibiotic agents; Z88.8 Allergy status to other drugs, medicaments and biological substances; Z91.040 Latex allergy status; Z88.2 Allergy status to sulfonamides; Z99.89 Dependence on other enabling machines and devices; Z95.5 Presence of coronary angioplasty implant and graft; Z98.890 Other specified postprocedural states; Z87.19 Personal history of other diseases of the digestive system
CPT/HCPCS: 36415; 80053; 83690; 84484; 85025; 85610; 85730; 99285

== ENCOUNTER 2019-09-08 15:13 | Emergency (ER) | payer MEDICARE, OTHER ==
[2019-09-08 15:16] VITALS: BP 132/85; PULSE 86; RESP 16; TEMP 97.6
[2019-09-08 15:29] LABS: Appearance,Urine Clear (Clear); Bilirubin,Urine Negative (Negative); Blood,Urine Negative (Negative); Color,Urine Yellow; Glucose,Urine (UA) Negative (Negative); Ketones,Urine Negative (Negative); Leukocyte Esterase,Urine Negative (Negative); Nitrite,Urine Negative (Negative); Protein,Urine Negative (Negative); Urobilinogen,Urine <2.0 mg/dL (<2.0)
[2019-09-08] MEDS ORDERED: SODIUM CHLORIDE 0.9% 1,000 ML IV STA (15:31)
[2019-09-08 15:47] LABS: Basophils % (A) 0 %; Eosinophils # (A) 0.2 k/uL (0-0.7); Eosinophils % (A) 3 %; HCT 46.3 % (39.0-53.0); Lymphocytes # (A) 1.6 k/uL (1.0-4.8); Lymphocytes % (A) 20 %; MCH 30.4 pg (25.0-35.0); MCHC 34.5 g/dL (31.0-37.0); MCV 88.2 fL (80.0-100.0); Mean Platelet Volume 7.2; Monocytes # (A) 0.3 k/uL (0-1.0); Monocytes % (A) 4 %; Neutrophils # (A) 5.8 k/uL (1.3-7.7); Neutrophils % (A) 71 %; Platelet Count 255 k/uL (150-450); RBC 5.26 m/uL (4.30-5.90); RDW 13.2 % (11.5-15.5); WBC 8.1 k/uL (3.8-10.6)
[2019-09-08 15:57] LABS: ALT 48 U/L (4-49); AST 38 U/L (17-59); African American GFR (CKD) >90 (>60 ml/min/1.73 sqM); Albumin 4.7 g/dL (3.5-5.0); Alkaline Phosphatase 75 U/L (38-126); Amylase 36 U/L (30-110); Anion Gap 8 mmol/L; Blood Urea Nitrogen 14 mg/dL (9-20); Calcium 10.1 mg/dL (8.4-10.2); Carbon Dioxide 22 mmol/L (22-30); Chloride 108 mmol/L (98-107); Glucose 97 mg/dL (74-99); Non-African American GFR(CKD) >90 (>60 ml/min/1.73 sqM); Potassium 3.9 mmol/L (3.5-5.1); Sodium 138 mmol/L (137-145); Total Bilirubin 0.4 mg/dL (0.2-1.3); Total Protein 7.3 g/dL (6.3-8.2)
[2019-09-08] MEDS ORDERED: KETOROLAC 30 MG/ML 1 ML VIAL IVP STA (16:16)
--- NOTE | 2019-09-08 16:18 | ED ---
Abdominal Pain HPI - General Chief Complaint: Abdominal Pain Stated Complaint: Abdominal pain Time Seen by Provider: 09/08/19 15:30 Source: patient, RN notes reviewed Mode of arrival: ambulatory Limitations: no limitations - History of Present Illness Initial Comments: 49-year-old male presents emergency Department for diarrhea, abdominal cramping. patient states this started yesterday. patient called her gi doctor advised him to be seen. patient reports no fever states that he felt a chill but no chest pain or shortness of breath no sick contacts no dysuria no hematuria no melena hematochezia. - Related Data Home Medications Medication Instructions Recorded Confirmed ARIPiprazole [Abilify] 10 mg PO HS 01/19/19 08/26/19 OLANZapine [ZyPREXA] 10 mg PO HS 01/19/19 08/26/19 Fenofibrate 160 mg PO DAILY 04/12/19 08/26/19 Ondansetron HCl [Zofran] 4 mg PO Q8H PRN 04/30/19 08/26/19 metFORMIN HCL 1,000 mg PO BID 04/30/19 08/26/19 Albuterol Inhaler [Ventolin Hfa 2 puff INHALATION RT-Q6H PRN 08/22/19 08/26/19 Inhaler] Loratadine 10 mg PO DAILY 08/22/19 08/26/19 Cholestyramine (with Sugar) 4 gm PO BID 08/26/19 08/26/19 [Cholestyramine Powder] Simethicone 80 mg PO QID 08/26/19 08/26/19 Previous Rx's Medication Instructions Recorded Omeprazole [PriLOSEC] 40 mg PO -BRKFST #14 capsule. 08/27/19 Allergies Allergy/AdvReac Type Severity Reaction Status Date / Time ciprofloxacin Allergy Unknown Nausea Verified 09/08/19 15:16 dicyclomine HCl [From Bentyl] Allergy Unknown Dyspnea Verified 09/08/19 15:16 latex Allergy Unknown Rash/Hives Verified 09/08/19 15:16 Macrolide Antibiotics Allergy Unknown Nausea Verified 09/08/19 15:16 diphenhydramine HCl Allergy Anaphylaxis Verified 09/08/19 15:16 [From Benadryl] adhesive AdvReac Unknown Itching Verified 09/08/19 15:16 sulfamethoxazole AdvReac Unknown Unknown Verified 09/08/19 15:16 [From Bactrim] trimethoprim [From Bactrim] AdvReac Unknown Unknown Verified 09/08/19 15:16 Review of Systems ROS Statement: Those systems with pertinent positive or pertinent negative responses have been documented in the HPI. ROS Other: All systems not noted in ROS Statement are negative. 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 History of Any Multi-Drug Resistant Organisms: None Reported Past Surgical History: Heart Catheterization, Orthopedic Surgery Additional Past Surgical History / Comment(s): Cysts removed, left thumb surgery, colonoscopy 08/24/2019 Past Anesthesia/Blood Transfusion Reactions: Motion Sickness, Postoperative Nausea & Vomiting (PONV) Past Psychological History: Anxiety, Bipolar, Depression, Schizophrenia Smoking Status: Current every day smoker Past Alcohol Use History: None Reported Past Drug Use History: None Reported - Past Family History Brother(s) Family Medical History: Diabetes Mellitus Additional Family Medical History / Comment(s): Patient has 2 brothers. One from complications from diabetes. The second is alive with diabetes. Sister(s) Family Medical History: Cancer Additional Family Medical History / Comment(s): Patient has one sister with breast cancer. Patient does not have any children. Father Family Medical History: Cancer Additional Family Medical History / Comment(s): Father in his 40s or 50s from colon cancer. Mother Family Medical History: Cancer Additional Family Medical History / Comment(s): Mother at age 68 from lung cancer. General Exam Limitations: no limitations General appearance: alert, in no apparent distress Head exam: Present: atraumatic, normocephalic, normal inspection Eye exam: Present: normal appearance, PERRL, EOMI. Absent: scleral icterus, conjunctival injection, periorbital swelling ENT exam: Present: normal exam, mucous membranes moist Neck exam: Present: normal inspection. Absent: tenderness, meningismus, lymphadenopathy Respiratory exam: Present: normal lung sounds bilaterally. Absent: respiratory distress, wheezes, rales, rhonchi, stridor Cardiovascular Exam: Present: regular rate, normal rhythm, normal heart sounds. Absent: systolic murmur, diastolic murmur, rubs, gallop, clicks GI/Abdominal exam: Present: soft, normal bowel sounds. Absent: distended, tenderness, guarding, rebound, rigid Course Vital Signs 09/08/19 15:15 Temperature 97.6 F Pulse Rate 86 Respiratory 16 Rate Blood Pressure 132/85 O2 Sat by Pulse 99 Oximetry Medical Decision Making - Medical Decision Making Patient's labs are unremarkable. Patient be discharged stable condition with close follow-up. - Lab Data Result diagrams: 09/08/19 15:40 09/08/19 15:40 Lab Results 09/08/19 09/08/19 09/08/19 Range/Units 15:21 15:40 15:40 WBC 8.1 (3.8-10.6) k/uL RBC 5.26 (4.30-5.90) m/uL Hgb 16.0 (13.0-17.5) gm/dL Hct 46.3 (39.0-53.0) % MCV 88.2 (80.0-100.0) fL MCH 30.4 (25.0-35.0) pg MCHC 34.5 (31.0-37.0) g/dL RDW 13.2 (11.5-15.5) % Plt Count 255 (150-450) k/uL Neutrophils % 71 % Lymphocytes % 20 % Monocytes % 4 % Eosinophils % 3 % Basophils % 0 % Neutrophils # 5.8 (1.3-7.7) k/uL Lymphocytes # 1.6 (1.0-4.8) k/uL Monocytes # 0.3 (0-1.0) k/uL Eosinophils # 0.2 (0-0.7) k/uL Basophils # 0.0 (0-0.2) k/uL Sodium 138 (137-145) mmol/L Potassium 3.9 (3.5-5.1) mmol/L Chloride 108 H (98-107) mmol/L Carbon Dioxide 22 (22-30) mmol/L Anion Gap 8 mmol/L BUN 14 (9-20) mg/dL Creatinine 0.74 (0.66-1.25) mg/dL Est GFR (CKD-EPI)AfAm >90 (>60 ml/min/1.73 sqM) Est GFR (CKD-EPI)NonAf >90 (>60 ml/min/1.73 sqM) Glucose 97 (74-99) mg/dL Calcium 10.1 (8.4-10.2) mg/dL Total Bilirubin 0.4 (0.2-1.3) mg/dL AST 38 (17-59) U/L ALT 48 (4-49) U/L Alkaline Phosphatase 75 (38-126) U/L Total Protein 7.3 (6.3-8.2) g/dL Albumin 4.7 (3.5-5.0) g/dL Amylase 36 (30-110) U/L Lipase 83 (23-300) U/L Urine Color Yellow Urine Appearance Clear (Clear) Urine pH 6.0 (5.0-8.0) Ur Specific [place] 1.020 (1.001-1.035) Urine Protein Negative (Negative) Urine Glucose (UA) Negative (Negative) Urine Ketones Negative (Negative) Urine Blood Negative (Negative) Urine Nitrite Negative (Negative) Urine Bilirubin Negative (Negative) Urine Urobilinogen <2.0 (<2.0) mg/dL Ur Leukocyte Esterase Negative (Negative) Disposition Clinical Impression: Abdominal pain Disposition: HOME SELF-CARE Condition: Stable Instructions (If sedation given, give patient instructions): Abdominal Pain (ED) Additional Instructions: Please return to the Emergency Department if symptoms worsen or any other concerns. Is patient prescribed a controlled substance at d/c from ED?: No Referrals: [facility] [Primary Care Provider] - 1-2 days Time of Disposition: 16:18
== END 2019-09-08 16:31 | disposition home or self-care (01) ==
LOC: EC 15:13
DX: R10.9 Unspecified abdominal pain (principal); R19.7 Diarrhea, unspecified; R68.83 Chills (without fever); J44.9 Chronic obstructive pulmonary disease, unspecified; F31.9 Bipolar disorder, unspecified; F20.9 Schizophrenia, unspecified; E11.9 Type 2 diabetes mellitus without complications; K21.9 Gastro-esophageal reflux disease without esophagitis; G47.30 Sleep apnea, unspecified; E78.5 Hyperlipidemia, unspecified; G40.909 Epilepsy, unspecified, not intractable, without status epilepticus; F17.200 Nicotine dependence, unspecified, uncomplicated; H91.90 Unspecified hearing loss, unspecified ear; Z88.1 Allergy status to other antibiotic agents; Z88.2 Allergy status to sulfonamides; Z88.8 Allergy status to other drugs, medicaments and biological substances; Z91.040 Latex allergy status; Z91.048 Other nonmedicinal substance allergy status; Z79.84 Long term (current) use of oral hypoglycemic drugs; Z79.899 Other long term (current) drug therapy; Z86.73 Personal history of transient ischemic attack (TIA), and cerebral infarction without residual deficits; Z99.89 Dependence on other enabling machines and devices
CPT/HCPCS: 36415; 80053; 82150; 83690; 85025; 81003; 99284; 96374; 96361; J1885

== ENCOUNTER 2019-10-19 16:22 | Emergency (ER) | payer MEDICARE, OTHER ==
[2019-10-19 16:28] VITALS: RESP 18
[2019-10-19 16:51] LABS: Glucose,Whole Blood 240 mg/dL (75-99)
[2019-10-19] MEDS ORDERED: INSULIN ASPART (NovoLOG) 100 UNIT/ML VIAL SQ ONE (16:57)
[2019-10-19] MEDS ORDERED: KETOROLAC 60 MG/2 ML VIAL IM STA (16:57)
--- NOTE | 2019-10-19 17:02 | ED ---
General Adult HPI - General Chief complaint: Dizziness Stated complaint: Hyperglycemia Time Seen by Provider: 10/19/19 16:25 Source: patient, RN notes reviewed, old records reviewed Mode of arrival: ambulatory Limitations: no limitations - History of Present Illness Initial comments: This is a 49-year-old male who comes in to the emergency department often. Patient comes in complaining today of achiness in his chest for a week he states anytime he moves it hurts. Patient states he has some achiness in his shoulders and his arms as well all associated with movement. Patient states lying still he has no symptoms whatsoever. Patient denies any difficulty breathing shortness of breath. Patient denies any diaphoretic episodes. Patient denies any recent fever chills or cough. Patient denies any nausea. Patient states he also had an Accu-Chek today that was 284 but he states he's been eaten. But her joints nauseous and not following his diet strictly. Patient has no deficits far as strength goes. Patient has no numbness. Patient denies headache patient states she was dizzy earlier in the week but is not currently dizzy. - Related Data Home Medications Medication Instructions Recorded Confirmed ARIPiprazole [Abilify] 10 mg PO HS 01/19/19 08/26/19 OLANZapine [ZyPREXA] 10 mg PO HS 01/19/19 08/26/19 Fenofibrate 160 mg PO DAILY 04/12/19 08/26/19 Ondansetron HCl [Zofran] 4 mg PO Q8H PRN 04/30/19 08/26/19 metFORMIN HCL 1,000 mg PO BID 04/30/19 08/26/19 Albuterol Inhaler (Bulk) [Ventolin 2 puff INHALATION RT-Q6H PRN 08/22/19 08/26/19 Hfa Inhaler] Loratadine 10 mg PO DAILY 08/22/19 08/26/19 Cholestyramine (with Sugar) 4 gm PO BID 08/26/19 08/26/19 [Cholestyramine Powder] Simethicone 80 mg PO QID 08/26/19 08/26/19 Previous Rx's Medication Instructions Recorded Omeprazole [PriLOSEC] 40 mg PO RAMONA-BRKFST #14 capsule. 08/27/19 Allergies Allergy/AdvReac Type Severity Reaction Status Date / Time ciprofloxacin Allergy Unknown Nausea Verified 10/19/19 16:27 dicyclomine HCl [From Bentyl] Allergy Unknown Dyspnea Verified 10/19/19 16:27 latex Allergy Unknown Rash/Hives Verified 10/19/19 16:27 Macrolide Antibiotics Allergy Unknown Nausea Verified 10/19/19 16:27 diphenhydramine HCl Allergy Anaphylaxis Verified 10/19/19 16:27 [From Benadryl] adhesive AdvReac Unknown Itching Verified 10/19/19 16:27 sulfamethoxazole AdvReac Unknown Unknown Verified 10/19/19 16:27 [From Bactrim] trimethoprim [From Bactrim] AdvReac Unknown Unknown Verified 10/19/19 16:27 Review of Systems ROS Statement: Those systems with pertinent positive or pertinent negative responses have been documented in the HPI. ROS Other: All systems not noted in ROS Statement are negative. 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 History of Any Multi-Drug Resistant Organisms: None Reported Past Surgical History: Heart Catheterization, Orthopedic Surgery Additional Past Surgical History / Comment(s): Cysts removed, left thumb surgery, colonoscopy 08/24/2019 Past Anesthesia/Blood Transfusion Reactions: Motion Sickness, Postoperative Nausea & Vomiting (PONV) Past Psychological History: Anxiety, Bipolar, Depression, Schizophrenia Smoking Status: Current every day smoker Past Alcohol Use History: None Reported Past Drug Use History: None Reported - Past Family History Brother(s) Family Medical History: Diabetes Mellitus Additional Family Medical History / Comment(s): Patient has 2 brothers. One from complications from diabetes. The second is alive with diabetes. Sister(s) Family Medical History: Cancer Additional Family Medical History / Comment(s): Patient has one sister with breast cancer. Patient does not have any children. Father Family Medical History: Cancer Additional Family Medical History / Comment(s): Father in his 40s or 50s from colon cancer. Mother Family Medical History: Cancer Additional Family Medical History / Comment(s): Mother at age 68 from lung cancer. General Exam - General Exam Comments Initial Comments: GENERAL: Patient is well-developed and well-nourished. Patient is nontoxic and well- hydrated and is in no acute distress. ENT: Neck is soft and supple. No significant lymphadenopathy is noted. Oropharynx is clear. Moist mucous membranes. Neck has full range of motion without eliciting any pain. EYES: The sclera were anicteric and conjunctiva were pink and moist. Extraocular movements were intact and pupils were equal round and reactive to light. Eyelids were unremarkable. PULMONARY: Unlabored respirations. Good breath sounds bilaterally. No audible rales rhonchi or wheezing was noted. CARDIOVASCULAR: There is a regular rate and rhythm without any murmurs gallops or rubs. ABDOMEN: Soft and nontender with normal bowel sounds. SKIN: Skin is clear with no lesions or rashes and otherwise unremarkable. NEUROLOGIC: Patient is alert and oriented x3. Cranial nerves II through XII are grossly intact. Motor and sensory are also intact. Normal speech, volume and content. Symmetrical smile. MUSCULOSKELETAL: Normal extremities with adequate strength and full range of motion. LYMPHATICS: No significant lymphadenopathy is noted PSYCHIATRIC: Normal psychiatric evaluation. Limitations: no limitations Course Vital Signs 10/19/19 16:25 Temperature 98.5 F Pulse Rate 104 H Respiratory 18 Rate Blood Pressure 151/80 O2 Sat by Pulse 98 Oximetry Medical Decision Making - Medical Decision Making EKG shows normal sinus rhythm at 80 bpm SD interval is 124 QRS is 98 QT interval 370 QTC is 457. Patient Toradol and some insulin because he is very worried that her sugar go heart because he continues to itch sheet on his diet. Patient states he isn't or double 40 believes that will help with his pain with movement - Lab Data Lab Results 10/19/19 Range/Units 16:49 POC Glucose (mg/dL) 240 H (75-99) mg/dL POC Glu Parasitology Teacher ID Kristel Richardson Disposition Clinical Impression: Myalgia, Hyperglycemia Disposition: HOME SELF-CARE Condition: Good Instructions (If sedation given, give patient instructions): Diabetic Hyperglycemia (ED), Musculoskeletal Pain (ED) Is patient prescribed a controlled substance at d/c from ED?: No Referrals: [facility] [Primary Care Provider] - 1-2 days Time of Disposition: 17:01
[2019-10-19 17:22] VITALS: BP 117/88; PULSE 78; TEMP 98.8
== END 2019-10-19 17:19 | disposition home or self-care (01) ==
LOC: EC 16:22
DX: E11.65 Type 2 diabetes mellitus with hyperglycemia (principal); M79.10 Myalgia, unspecified site; J44.9 Chronic obstructive pulmonary disease, unspecified; I10 Essential (primary) hypertension; G47.30 Sleep apnea, unspecified; F41.9 Anxiety disorder, unspecified; F31.9 Bipolar disorder, unspecified; F17.200 Nicotine dependence, unspecified, uncomplicated; Z79.84 Long term (current) use of oral hypoglycemic drugs; Z79.899 Other long term (current) drug therapy; Z88.1 Allergy status to other antibiotic agents; Z88.2 Allergy status to sulfonamides; Z91.040 Latex allergy status; Z88.8 Allergy status to other drugs, medicaments and biological substances; Z91.048 Other nonmedicinal substance allergy status; Z86.73 Personal history of transient ischemic attack (TIA), and cerebral infarction without residual deficits; Z99.89 Dependence on other enabling machines and devices
CPT/HCPCS: 36415; 93005; 99284; 96372; J1885

== ENCOUNTER 2019-10-25 15:01 | Inpatient (IN) | payer MEDICARE, OTHER ==
[2019-10-25 15:16] LABS: Glucose,Whole Blood 355 mg/dL (75-99)
[2019-10-25] MEDS ORDERED: SODIUM CHLORIDE 0.9% 1,000 ML IV STA (15:23)
[2019-10-25 15:45] LABS: Basophils % (A) 0 %; Eosinophils % (A) 0 %; HCT 43.4 % (39.0-53.0); HGB 14.7 gm/dL (13.0-17.5); Lymphocytes # (A) 0.8 k/uL (1.0-4.8); Lymphocytes % (A) 11 %; MCH 30.2 pg (25.0-35.0); MCHC 33.8 g/dL (31.0-37.0); MCV 89.3 fL (80.0-100.0); Mean Platelet Volume 7.6; Monocytes # (A) 0.2 k/uL (0-1.0); Monocytes % (A) 3 %; Neutrophils # (A) 6.4 k/uL (1.3-7.7); Neutrophils % (A) 85 %; Platelet Count 215 k/uL (150-450); RBC 4.86 m/uL (4.30-5.90); RDW 13.2 % (11.5-15.5); WBC 7.5 k/uL (3.8-10.6)
[2019-10-25 15:49] LABS: Appearance,Urine Clear (Clear); Bilirubin,Urine Negative (Negative); Blood,Urine Negative (Negative); Color,Urine Light Yellow; Glucose,Urine (UA) 4+ (Negative); Ketones,Urine Negative (Negative); Leukocyte Esterase,Urine Negative (Negative); Nitrite,Urine Negative (Negative); PH, Urine 5.5 (5.0-8.0); Protein,Urine Negative (Negative); Specific Gravity,Urine 1.029 (1.001-1.035); Urobilinogen,Urine <2.0 mg/dL (<2.0)
[2019-10-25 15:54] LABS: ALT 85 U/L (4-49); AST 55 U/L (17-59); African American GFR (CKD) >90 (>60 ml/min/1.73 sqM); Albumin 4.4 g/dL (3.5-5.0); Alkaline Phosphatase 83 U/L (38-126); Anion Gap 12 mmol/L; Blood Urea Nitrogen 16 mg/dL (9-20); Carbon Dioxide 19 mmol/L (22-30); Chloride 105 mmol/L (98-107); Glucose 363 mg/dL (74-99); Magnesium 1.5 mg/dL (1.6-2.3); Non-African American GFR(CKD) >90 (>60 ml/min/1.73 sqM); Potassium 4.5 mmol/L (3.5-5.1); Sodium 136 mmol/L (137-145); Total Bilirubin 0.3 mg/dL (0.2-1.3); Total Protein 6.8 g/dL (6.3-8.2)
--- NOTE | 2019-10-25 15:56 | ED ---
General Adult HPI - General Chief complaint: Recheck/Abnormal Lab/Rx Stated complaint: sugar high Time Seen by Provider: 10/25/19 15:23 Source: patient, RN notes reviewed Mode of arrival: wheelchair Limitations: no limitations - History of Present Illness Initial comments: Patient is a pleasant 49-year-old male presenting to the emergency Department with hyperglycemia. Blood sugar has been running high over the past week. Blood sugar has been as high as 300. Blood sugar was 2:30 this morning. Patient feels a little bit lightheaded. Patient has no other complaints. No chest pain. No vomiting or abdominal pain. Patient takes oral metformin. - Related Data Home Medications Medication Instructions Recorded Confirmed ARIPiprazole [Abilify] 10 mg PO HS 01/19/19 08/26/19 OLANZapine [ZyPREXA] 10 mg PO HS 01/19/19 08/26/19 Fenofibrate 160 mg PO DAILY 04/12/19 08/26/19 Ondansetron HCl [Zofran] 4 mg PO Q8H PRN 04/30/19 08/26/19 metFORMIN HCL 1,000 mg PO BID 04/30/19 08/26/19 Albuterol Inhaler (Mhu) [Ventolin 2 puff INHALATION RT-Q6H PRN 08/22/19 08/26/19 Hfa Inhaler] Loratadine 10 mg PO DAILY 08/22/19 08/26/19 Cholestyramine (with Sugar) 4 gm PO BID 08/26/19 08/26/19 [Cholestyramine Powder] Simethicone 80 mg PO QID 08/26/19 08/26/19 Previous Rx's Medication Instructions Recorded Omeprazole [PriLOSEC] 40 mg PO -BRKFST #14 capsule. 08/27/19 Allergies Allergy/AdvReac Type Severity Reaction Status Date / Time ciprofloxacin Allergy Unknown Nausea Verified 10/25/19 15:15 dicyclomine HCl [From Bentyl] Allergy Unknown Dyspnea Verified 10/25/19 15:15 latex Allergy Unknown Rash/Hives Verified 10/25/19 15:15 Macrolide Antibiotics Allergy Unknown Nausea Verified 10/25/19 15:15 diphenhydramine HCl Allergy Anaphylaxis Verified 10/25/19 15:15 [From Benadryl] adhesive AdvReac Unknown Itching Verified 10/25/19 15:15 sulfamethoxazole AdvReac Unknown Unknown Verified 10/25/19 15:15 [From Bactrim] trimethoprim [From Bactrim] AdvReac Unknown Unknown Verified 10/25/19 15:15 Review of Systems ROS Statement: Those systems with pertinent positive or pertinent negative responses have been documented in the HPI. ROS Other: All systems not noted in ROS Statement are negative. Constitutional: Denies: fever Eyes: Denies: eye pain ENT: Denies: ear pain Respiratory: Denies: cough, dyspnea Cardiovascular: Denies: chest pain, palpitations Endocrine: Denies: fatigue Gastrointestinal: Denies: abdominal pain, nausea, vomiting Genitourinary: Denies: urgency Musculoskeletal: Denies: back pain Skin: Denies: rash Neurological: Denies: weakness Past Medical History Past Medical History: Asthma, Chest Pain / Angina, COPD, CVA/TIA, Diabetes Mellitus, GERD/Reflux, Hearing Disorder / Deafness, Hyperlipidemia, Hypertension, Liver Disease, Osteoarthritis (OA), Pneumonia, Seizure Disorder, Sleep Apnea/CPAP/BIPAP Additional Past Medical History / Comment(s): states CVA at 35 yrs old with left sided weakness- uses cane., states seizure at 35 yrs old., DDD- back & neck pain., carpal tunnel syndrome., Cyst on kidney, uses cpap., states having abdominal pain with diarrhea and nausea ., Lives with his sister and has [employer] public guardian. History of Any Multi-Drug Resistant Organisms: None Reported Past Surgical History: Heart Catheterization, Orthopedic Surgery Additional Past Surgical History / Comment(s): Cysts removed, left thumb surgery, colonoscopy 08/24/2019 Past Anesthesia/Blood Transfusion Reactions: Motion Sickness, Postoperative Nausea & Vomiting (PONV) Past Psychological History: Anxiety, Bipolar, Depression, Schizophrenia Smoking Status: Current every day smoker Past Alcohol Use History: None Reported Past Drug Use History: None Reported - Past Family History Brother(s) Family Medical History: Diabetes Mellitus Additional Family Medical History / Comment(s): Patient has 2 brothers. One from complications from diabetes. The second is alive with diabetes. Sister(s) Family Medical History: Cancer Additional Family Medical History / Comment(s): Patient has one sister with breast cancer. Patient does not have any children. Father Family Medical History: Cancer Additional Family Medical History / Comment(s): Father in his 40s or 50s from colon cancer. Mother Family Medical History: Cancer Additional Family Medical History / Comment(s): Mother at age 68 from lung cancer. General Exam Limitations: no limitations General appearance: alert, in no apparent distress Head exam: Present: normocephalic Eye exam: Present: normal appearance ENT exam: Present: normal oropharynx Neck exam: Present: normal inspection Respiratory exam: Present: normal lung sounds bilaterally. Absent: chest wall tenderness Cardiovascular Exam: Present: regular rate, normal rhythm GI/Abdominal exam: Present: soft. Absent: tenderness Extremities exam: Present: normal inspection Neurological exam: Present: alert, CN II-XII intact. Absent: motor sensory deficit Psychiatric exam: Present: normal affect, normal mood Skin exam: Present: normal color Course Vital Signs 10/25/19 10/25/19 10/25/19 15:12 16:30 17:30 Temperature 99.3 F Pulse Rate 88 67 72 Respiratory 18 16 18 Rate Blood Pressure 121/76 112/74 120/74 O2 Sat by Pulse 98 95 98 Oximetry EKG Findings - EKG Comments: EKG Findings:: Normal sinus rhythm at 73. SC 1:30. QRS 102. QT 378. QTC 416. Normal axis. Normal QRS. No acute ST change. Medical Decision Making - Medical Decision Making Blood sugar remained somewhat elevated despite IV insulin. Case discussed Dr. Gomez who will admit for hospital call. He does recommend sign scale insulin as well as 20 units of Lantus. He did evaluate patient in emergency Department - Lab Data Result diagrams: 10/25/19 15:22 10/25/19 15:22 Lab Results 10/25/19 10/25/19 10/25/19 Range/Units 15:14 15:22 15:22 WBC 7.5 (3.8-10.6) k/uL RBC 4.86 (4.30-5.90) m/uL Hgb 14.7 (13.0-17.5) gm/dL Hct 43.4 (39.0-53.0) % MCV 89.3 (80.0-100.0) fL MCH 30.2 (25.0-35.0) pg MCHC 33.8 (31.0-37.0) g/dL RDW 13.2 (11.5-15.5) % Plt Count 215 (150-450) k/uL Neutrophils % 85 % Lymphocytes % 11 % Monocytes % 3 % Eosinophils % 0 % Basophils % 0 % Neutrophils # 6.4 (1.3-7.7) k/uL Lymphocytes # 0.8 L (1.0-4.8) k/uL Monocytes # 0.2 (0-1.0) k/uL Eosinophils # 0.0 (0-0.7) k/uL Basophils # 0.0 (0-0.2) k/uL PT 9.8 (9.0-12.0) sec INR 0.9 (<1.2) APTT 21.3 L (22.0-30.0) sec Sodium (137-145) mmol/L Potassium (3.5-5.1) mmol/L Chloride (98-107) mmol/L Carbon Dioxide (22-30) mmol/L Anion Gap mmol/L BUN (9-20) mg/dL Creatinine (0.66-1.25) mg/dL Est GFR (CKD-EPI)AfAm (>60 ml/min/1.73 sqM) Est GFR (CKD-EPI)NonAf (>60 ml/min/1.73 sqM) Glucose (74-99) mg/dL POC Glucose (mg/dL) 355 H (75-99) mg/dL POC Glu [employer] Attendant ID Kristel Richardson Calcium (8.4-10.2) mg/dL Magnesium (1.6-2.3) mg/dL Total Bilirubin (0.2-1.3) mg/dL AST (17-59) U/L ALT (4-49) U/L Alkaline Phosphatase (38-126) U/L Total Protein (6.3-8.2) g/dL Albumin (3.5-5.0) g/dL Urine Color Urine Appearance (Clear) Urine pH (5.0-8.0) Ur Specific [place] (1.001-1.035) Urine Protein (Negative) Urine Glucose (UA) (Negative) Urine Ketones (Negative) Urine Blood (Negative) Urine Nitrite (Negative) Urine Bilirubin (Negative) Urine Urobilinogen (<2.0) mg/dL Ur Leukocyte Esterase (Negative) Acetone, Qual (Negative) 10/25/19 10/25/19 10/25/19 Range/Units 15:22 15:22 16:29 WBC (3.8-10.6) k/uL RBC (4.30-5.90) m/uL Hgb (13.0-17.5) gm/dL Hct (39.0-53.0) % MCV (80.0-100.0) fL MCH (25.0-35.0) pg MCHC (31.0-37.0) g/dL RDW (11.5-15.5) % Plt Count (150-450) k/uL Neutrophils % % Lymphocytes % % Monocytes % % Eosinophils % % Basophils % % Neutrophils # (1.3-7.7) k/uL Lymphocytes # (1.0-4.8) k/uL Monocytes # (0-1.0) k/uL Eosinophils # (0-0.7) k/uL Basophils # (0-0.2) k/uL PT (9.0-12.0) sec INR (<1.2) APTT (22.0-30.0) sec Sodium 136 L (137-145) mmol/L Potassium 4.5 (3.5-5.1) mmol/L Chloride 105 (98-107) mmol/L Carbon Dioxide 19 L (22-30) mmol/L Anion Gap 12 mmol/L BUN 16 (9-20) mg/dL Creatinine 0.77 (0.66-1.25) mg/dL Est GFR (CKD-EPI)AfAm >90 (>60 ml/min/1.73 sqM) Est GFR (CKD-EPI)NonAf >90 (>60 ml/min/1.73 sqM) Glucose 363 H (74-99) mg/dL POC Glucose (mg/dL) 325 H (75-99) mg/dL POC Glu [employer] Attendant ID Christine Adair Calcium 10.0 (8.4-10.2) mg/dL Magnesium 1.5 L (1.6-2.3) mg/dL Total Bilirubin 0.3 (0.2-1.3) mg/dL AST 55 (17-59) U/L ALT 85 H (4-49) U/L Alkaline Phosphatase 83 (38-126) U/L Total Protein 6.8 (6.3-8.2) g/dL Albumin 4.4 (3.5-5.0) g/dL Urine Color Light Yellow Urine Appearance Clear (Clear) Urine pH 5.5 (5.0-8.0) Ur Specific [place] 1.029 (1.001-1.035) Urine Protein Negative (Negative) Urine Glucose (UA) 4+ H (Negative) Urine Ketones Negative (Negative) Urine Blood Negative (Negative) Urine Nitrite Negative (Negative) Urine Bilirubin Negative (Negative) Urine Urobilinogen <2.0 (<2.0) mg/dL Ur Leukocyte Esterase Negative (Negative) Acetone, Qual Negative (Negative) 10/25/19 Range/Units 17:28 WBC (3.8-10.6) k/uL RBC (4.30-5.90) m/uL Hgb (13.0-17.5) gm/dL Hct (39.0-53.0) % MCV (80.0-100.0) fL MCH (25.0-35.0) pg MCHC (31.0-37.0) g/dL RDW (11.5-15.5) % Plt Count (150-450) k/uL Neutrophils % % Lymphocytes % % Monocytes % % Eosinophils % % Basophils % % Neutrophils # (1.3-7.7) k/uL Lymphocytes # (1.0-4.8) k/uL Monocytes # (0-1.0) k/uL Eosinophils # (0-0.7) k/uL Basophils # (0-0.2) k/uL PT (9.0-12.0) sec INR (<1.2) APTT (22.0-30.0) sec Sodium (137-145) mmol/L Potassium (3.5-5.1) mmol/L Chloride (98-107) mmol/L Carbon Dioxide (22-30) mmol/L Anion Gap mmol/L BUN (9-20) mg/dL Creatinine (0.66-1.25) mg/dL Est GFR (CKD-EPI)AfAm (>60 ml/min/1.73 sqM) Est GFR (CKD-EPI)NonAf (>60 ml/min/1.73 sqM) Glucose (74-99) mg/dL POC Glucose (mg/dL) 292 H (75-99) mg/dL POC Glu [employer] Attendant ID Christine Adair Calcium (8.4-10.2) mg/dL Magnesium (1.6-2.3) mg/dL Total Bilirubin (0.2-1.3) mg/dL AST (17-59) U/L ALT (4-49) U/L Alkaline Phosphatase (38-126) U/L Total Protein (6.3-8.2) g/dL Albumin (3.5-5.0) g/dL Urine Color Urine Appearance (Clear) Urine pH (5.0-8.0) Ur Specific [place] (1.001-1.035) Urine Protein (Negative) Urine Glucose (UA) (Negative) Urine Ketones (Negative) Urine Blood (Negative) Urine Nitrite (Negative) Urine Bilirubin (Negative) Urine Urobilinogen (<2.0) mg/dL Ur Leukocyte Esterase (Negative) Acetone, Qual (Negative) - Radiology Data Radiology results: report reviewed (Borderline heart size. No acute process) Disposition Clinical Impression: Hyperglycemia Disposition: ADMITTED IP TO THIS HOSP Is patient prescribed a controlled substance at d/c from ED?: No Referrals: [facility] [Primary Care Provider] - 1-2 days Decision Time: 17:52
[2019-10-25 16:02] LABS: INR 0.9 (<1.2); Prothrombin Time 9.8 sec (9.0-12.0)
--- NOTE | 2019-10-25 16:05 | XR ---
EXAMINATION TYPE: XR chest 2V DATE OF EXAM: 10/25/2019 COMPARISON: 08/26/2019 HISTORY: 49-year-old male with weakness and lightheadedness TECHNIQUE: PA and lateral views FINDINGS: Heart borderline enlarged. No consolidation or pleural effusion. Mild interstitial prominence is unch anged. IMPRESSION: Borderline heart size and chronic changes. No acute process seen.
[2019-10-25 16:14] LABS: Partial Thromboplastin Time 21.3 sec (22.0-30.0)
[2019-10-25] MEDS ORDERED: INSULIN REGULAR 100 UNIT/ML VIAL IV ONE (16:18)
[2019-10-25] MEDS ORDERED: SODIUM CHLORIDE 0.9% 500 ML 500 ML IV STA (16:18)
[2019-10-25 16:32] LABS: Glucose,Whole Blood 325 mg/dL (75-99)
[2019-10-25 17:30] LABS: Glucose,Whole Blood 292 mg/dL (75-99)
[2019-10-25] MEDS ORDERED: INSULIN DETEMIR (LEVEMIR) 100 UNIT/ML SYR SQ STA (17:53)
[2019-10-25] MEDS ORDERED: NALOXONE 0.4 MG/ML 1 ML VIAL IV PRN (17:54)
[2019-10-25] MEDS ORDERED: ALPRAZolam 0.25 MG TAB PO PRN (18:10)
[2019-10-25] MEDS ORDERED: TEMAZEPAM 15 MG CAP PO PRN (18:10)
[2019-10-25] MEDS: SODIUM CHLORIDE 0.9% 1,000 ML IV SCH (18:25)
--- NOTE | 2019-10-25 19:36 | HP ---
HISTORY AND PHYSICAL DATE OF SERVICE: 10/25/2019 CHIEF COMPLAINT: Uncontrolled diabetes mellitus, type 2. HISTORY OF PRESENT ILLNESS: This 49-year-old gentleman with a past medical history of multiple medical problems, including asthma, COPD, CVA, TIA, diabetes mellitus, type 2, hearing defect, hypertension, hyperlipidemia, being followed by [facility] in the outpatient setting, lives in an [facility] home. Apparently the patient's sugars were elevated and more than 300, and the patient was not feeling well. He came to [facility] and was admitted for evaluation and treatment. CO2 is slightly low, but acetone is negative, ruling out the possibility of acute diabetic ketoacidosis. Otherwise, the patient was feeling weak and slightly lightheaded and he was admitted for evaluation and treatment. As mentioned earlier, glucose on admission was found to be 355 and 363. There is no history of any fever, rigor or chills. No history of headache, loss of consciousness, seizures. The patient also complains of epigastric pain which is radiating up to the chest and neck area. PAST MEDICAL HISTORY: Diabetes mellitus, type 2, history of COPD, asthma, GERD, hypertension, hyperlipidemia, history of liver disease, history of anxiety, bipolar depression. HOME MEDICATIONS: Reviewed. They include: 1. Metformin 1000 mg p.o. b.i.d. 2. Simethicone 80 mg p.o. q.i.d. 3. Zofran 4 mg q.8 p.r.n. 4. Prilosec 40 mg with breakfast. 5. Zyprexa 10 mg at bedtime. 6. Loratadine 10 mg p.o. daily. 7. Fenofibrate 160 mg p.o. daily. 8. Cholestyramine 4 grams p.o. b.i.d. 9. Ventolin 2 puffs q.6 p.r.n. 10.Abilify 10 mg at bedtime. ALLERGIES: CIPROFLOXACIN, DICYCLOMINE, LATEX, MACROLIDE ANTIBIOTICS, BENADRYL, ADHESIVES. FAMILY HISTORY: History of diabetes mellitus in the family. SOCIAL HISTORY: History of smoking, continued ongoing. No history of alcohol intake. REVIEW OF SYSTEMS: ENT: No diminished hearing. No diminished vision. CARDIOVASCULAR SYSTEM: No angina, palpitations. RESPIRATORY SYSTEM: Occasional cough. GI: Some abdominal pain present. : No dysuria or retention. NERVOUS SYSTEM: No numbness, weakness. ALLERGY/IMMUNOLOGY: No asthma, hayfever. MUSCULOSKELETAL: As mentioned earlier. HEMATOLOGY/ONCOLOGY: No history of anemia. ENDOCRINE: As mentioned earlier. CONSTITUTIONAL: As mentioned earlier. DERMATOLOGY: Negative. RHEUMATOLOGY: Negative. PSYCHIATRY: As mentioned earlier. PHYSICAL EXAMINATION: Patient alert and oriented x3. Pulse 60, blood pressure 130/86, respiration 18, temperature 99.3, pulse ox 98% on room air. HEENT: Conjunctivae normal. NECK: No jugular venous distention. RESPIRATORY SYSTEM: Breath sounds diminished at the bases. Scattered rhonchi and crackles. ABDOMEN: Soft, obese, non-tender. No mass palpable. LEGS: No edema. No swelling. NERVOUS SYSTEM: Higher functions as mentioned earlier. Moves all 4 limbs. No focal motor or sensory deficit. LYMPHATICS: No lymph node palpable in neck, axillae or groin. SKIN: No ulcer, rash, bleeding. JOINTS: No active deforming arthropathy. LABS: CBC within normal limits. Sodium 136. ASSESSMENT: 1. Diabetes mellitus, type 2, uncontrolled. 2. Epigastric chest pain. Rule out coronary disease and possible GERD. 3. Hyponatremia. 4. Decreased carbon dioxide. 5. Hypomagnesemia. 6. History of asthma, chronic obstructive pulmonary disease. 7. History of cerebrovascular accident, transient ischemic attack. 8. Gastroesophageal reflux disease. 9. Hearing difficulty. 10.Hypertension. 11.Hyperlipidemia. 12.History of chronic liver disease. 13.History of degenerative joint disease. 14.History of pneumonia. 15.Seizure disorder. 16.Sleep apnea. 17.History of cerebrovascular accident with left-sided weakness. 18.History of cardiac catheterization. 19.History of anxiety, bipolar, depression, schizophrenia. 20.Continued ongoing nicotine dependence. 21.Public legal guardian. 22.FULL CODE. RECOMMENDATIONS AND DISCUSSION: In this 49-year-old gentleman who presented with multiple complex medical issues, we will monitor the patient closely, continue the current medications, continue with symptomatic treatment. I would recommend Accu-Cheks before meals and at bedtime and insulin scale also; 20 units Lantus was also given. Will continue to monitor. Guarded prognosis because of multiple complex medical issues. Further recommendations to follow. I would also recommend hemoglobin A1c. See orders for further details. MMODL / IJN: [id number] /
[2019-10-25 20:17] LABS: Glucose,Whole Blood 246 mg/dL (75-99)
[2019-10-25] MEDS: HEPARIN SODIUM,PORCINE 5,000 UNIT/ML 1 ML VIAL SQ SCH (20:53)
[2019-10-25] MEDS: INSULIN ASPART (NovoLOG) 100 UNIT/ML VIAL SQ SCH (20:53)
[2019-10-25] MEDS: CALCIUM CARBONATE 500 MG CHEWABLE PO PRN (23:29)
[2019-10-25] MEDS: HYDROcodone/APAP 5-325MG 1 EACH TAB PO PRN (23:33)
[2019-10-26 00:51] LABS: Hemoglobin A1C 8.3 % (4.0-6.0)
[2019-10-26 01:54] LABS: Glucose,Whole Blood 163 mg/dL (75-99)
[2019-10-26 06:59] LABS: Glucose,Whole Blood 130 mg/dL (75-99)
[2019-10-26 07:21] LABS: Basophils % (A) 0 %; Eosinophils # (A) 0.1 k/uL (0-0.7); Eosinophils % (A) 2 %; HCT 40.6 % (39.0-53.0); Lymphocytes % (A) 31 %; MCH 31.1 pg (25.0-35.0); MCHC 34.6 g/dL (31.0-37.0); Mean Platelet Volume 7.6; Monocytes # (A) 0.3 k/uL (0-1.0); Monocytes % (A) 5 %; Neutrophils # (A) 3.9 k/uL (1.3-7.7); Neutrophils % (A) 61 %; Platelet Count 198 k/uL (150-450); RBC 4.51 m/uL (4.30-5.90); RDW 13.4 % (11.5-15.5); WBC 6.4 k/uL (3.8-10.6)
[2019-10-26 07:32] LABS: African American GFR (CKD) >90 (>60 ml/min/1.73 sqM); Anion Gap 5 mmol/L; Blood Urea Nitrogen 15 mg/dL (9-20); Calcium 9.2 mg/dL (8.4-10.2); Carbon Dioxide 23 mmol/L (22-30); Chloride 110 mmol/L (98-107); Glucose 100 mg/dL (74-99); Non-African American GFR(CKD) >90 (>60 ml/min/1.73 sqM); Potassium 3.8 mmol/L (3.5-5.1); Sodium 138 mmol/L (137-145)
[2019-10-26] MEDS: HYDROcodone/APAP 5-325MG 1 EACH TAB PO PRN ×3 (07:34→19:34)
[2019-10-26] MEDS: PANTOPRAZOLE 40 MG TABLET PO SCH (07:37)
[2019-10-26] MEDS: HEPARIN SODIUM,PORCINE 5,000 UNIT/ML 1 ML VIAL SQ SCH ×2 (07:37→20:43)
[2019-10-26] MEDS: INSULIN ASPART (NovoLOG) 100 UNIT/ML VIAL SQ SCH ×4 (07:38→20:43)
[2019-10-26] MEDS: SODIUM CHLORIDE 0.9% 1,000 ML IV SCH ×2 (07:42→17:16)
[2019-10-26] MEDS ORDERED: IBUPROFEN 600 MG TAB PO PRN (09:56)
[2019-10-26] MEDS ORDERED: ONDANSETRON 4 MG TAB PO PRN (09:56)
[2019-10-26] MEDS ORDERED: HYDROCORTISONE 1% CREAM 30 GM TUBE TOPICAL PRN (09:56)
[2019-10-26] MEDS: metFORMIN 500 MG TAB PO SCH ×2 (11:14→20:43)
[2019-10-26] MEDS: LORATADINE 10 MG TAB PO SCH (11:15)
[2019-10-26] MEDS: CALCIUM CARBONATE 500 MG CHEWABLE PO PRN (11:15)
[2019-10-26] MEDS: MULTIVITAMINS, THERA 1 EACH TAB PO SCH (11:16)
[2019-10-26] MEDS: THIAMINE 100 MG TAB PO SCH (11:16)
[2019-10-26 11:20] LABS: Glucose,Whole Blood 169 mg/dL (75-99)
[2019-10-26] MEDS: ALBUTEROL NEBULIZED 2.5 MG/3 ML INHALATION PRN ×2 (11:31→20:06)
[2019-10-26] MEDS: SIMETHICONE 80 MG CHEWABLE PO SCH ×3 (12:43→20:43)
[2019-10-26 14:52] VITALS: BMI 33.7
--- NOTE | 2019-10-26 15:34 | P.PN ---
Subjective Progress Note Date: 10/26/19 Principal diagnosis: This is a 49-year-old male who was recently admitted for diabetes mellitus type 2 uncontrolled and was found to have elevated blood sugars over 300 and is being closely monitored. Patient was initiated on Glucotrol along with sliding scale. Blood sugars are being monitored before meals at bedtime. Patient was also found to have some complaints of epigastric pain that was radiating up the chest and neck and states he normally takes Tums for this. Will initiate Pepcid. Patient remains on Protonix 40 mg daily. Currently no reports of chest pain, shortness of breath, or palpitations. Patient is afebrile. No reports of nausea or vomiting and patient is tolerating diet. Patient does have an albuterol inhaler and uses it 4 times daily. Review of systems: Constitutional: No reports of fatigue, fevers, or chills Cardiovascular: No reports of chest pain or palpitations Respiratory: No reports of shortness of breath or cough GI: No reports of nausea, vomiting, or diarrhea : No reports of dysuria or retention Neurovascular: No reports of weakness or numbness Active Medications Hydrocodone Bitart/Acetaminophen ([place] 5-325) 1 each PO Q6HR PRN PRN Reason: Pain Last Admin: 10/26/19 13:34 Dose: 1 each Documented by: Albuterol Sulfate (Ventolin Nebulized) 2.5 mg INHALATION RT-Q6H PRN PRN Reason: Shortness Of Breath Last Admin: 10/26/19 11:31 Dose: 2.5 mg Documented by: Alprazolam (Xanax) 0.25 mg PO TID PRN PRN Reason: Anxiety Aripiprazole (Abilify) 10 mg PO HS PJ Aspirin (Aspirin) 81 mg PO DAILY [facility] Calcium Carbonate/Glycine (Tums) 500 mg PO QID PRN PRN Reason: Heartburn Last Admin: 10/26/19 11:15 Dose: 500 mg Documented by: Cholecalciferol (Vitamin D3 (25 Mcg = 1000 Iu)) 5,000 unit PO DAILY [facility] Ergocalciferol (Vitamin D2) 50,000 unit PO Q7D PJ Famotidine (Pepcid) 20 mg PO BID [facility] Fenofibrate (Lofibra) 160 mg PO DAILY [facility] Glipizide (Glucotrol) 2.5 mg PO AC-BRKFST [facility] Last Admin: 10/26/19 11:17 Dose: 2.5 mg Documented by: Heparin Sodium (Porcine) (Heparin) 5,000 unit SQ Q12HR [facility] Last Admin: 10/26/19 07:37 Dose: 5,000 unit Documented by: Hydrocortisone (Hydrocortisone 1% Cream) 1 applic TOPICAL BID PRN PRN Reason: Rash Sodium Chloride (Saline 0.9%) 1,000 mls @ 75 mls/hr IV .[id number] [facility] Last Admin: 10/26/19 07:42 Dose: 75 mls/hr Documented by: Ibuprofen (Motrin) 600 mg PO Q8H PRN PRN Reason: Pain Insulin Aspart (Novolog) 0 unit SQ ACHS [facility]; Protocol Last Admin: 10/26/19 12:44 Dose: 2 unit Documented by: Loratadine (Claritin) 10 mg PO DAILY [facility] Last Admin: 10/26/19 11:15 Dose: 10 mg Documented by: Metformin HCl (Glucophage) 1,000 mg PO BID [facility] Last Admin: 10/26/19 11:14 Dose: 1,000 mg Documented by: Multi-Ingred Cream/Lotion/Oil/Oint (Eucerin Cream) 1 applic TOPICAL BID PRN PRN Reason: DRY SKIN Multivitamins (Theragran) 1 each PO DAILY@1200 [facility] Last Admin: 10/26/19 11:16 Dose: 1 each Documented by: Naloxone HCl (Narcan) 0.2 mg IV Q2M PRN PRN Reason: Opioid Reversal Olanzapine (Zyprexa) 10 mg PO HS [facility] Ondansetron HCl (Zofran) 4 mg PO DAILY PRN PRN Reason: Nausea Pantoprazole Sodium (Protonix) 40 mg PO [facility] Last Admin: 10/26/19 07:37 Dose: 40 mg Documented by: Simethicone (Mylicon Chew) 80 mg PO QID [facility] Last Admin: 10/26/19 12:43 Dose: Not Given Documented by: Temazepam (Restoril) 15 mg PO HS PRN PRN Reason: Insomnia Thiamine HCl (Vitamin B-1) 100 mg PO DAILY@1200 [facility] Last Admin: 10/26/19 11:16 Dose: 100 mg Documented by: Objective - Vital Signs Vital signs: Vital Signs Temp 98.5 F 10/26/19 11:53 Pulse 67 10/26/19 11:53 Resp 17 10/26/19 11:53 BP 136/84 10/26/19 11:53 Pulse Ox 96 10/26/19 11:53 Intake & Output 10/25/19 10/26/19 10/26/19 18:59 06:59 18:59 Intake Total 300 Balance 300 Weight 90.718 kg 89 kg Intake: Oral 300 Other: Voiding Method Toilet Toilet Urinal Urinal # Voids 2 # Bowel Movements 2 - Exam Gen: This is a 49-year-old male sitting up in bed awake, alert and oriented 3, well-developed, well-nourished. Temp is 98.5F, pulse is 67, respirations are 17, blood pressure is 136/84, oxygen saturation is 96% on room air. HEENT: Head is atraumatic, normocephalic. Pupils equal, round. Sclerae is anicteric. NECK: Supple. No JVD. No lymphadenopathy. No thyromegaly. LUNGS: Diminished breath sounds at the bases with a few scattered rhonchi noted. No intercostal retractions. HEART: S1, S2 muffled ABDOMEN: Soft. Obese. Bowel sounds are present. No masses. No tenderness. EXTREMITIES: No pedal edema. No calf tenderness. NEUROLOGICAL: Patient is awake, alert and oriented x3. Cranial nerves 2 through 12 are grossly intact. - Labs CBC & Chem 7: 10/26/19 06:17 10/26/19 06:17 Labs: Abnormal Lab Results - Last 24 Hours (Table) 10/25/19 10/25/19 10/25/19 Range/Units 15:14 15:22 15:22 Lymphocytes # 0.8 L (1.0-4.8) k/uL APTT 21.3 L (22.0-30.0) sec Sodium (137-145) mmol/L Chloride (98-107) mmol/L Carbon Dioxide (22-30) mmol/L Glucose (74-99) mg/dL POC Glucose (mg/dL) 355 H (75-99) mg/dL Hemoglobin A1c (4.0-6.0) % Magnesium (1.6-2.3) mg/dL ALT (4-49) U/L Urine Glucose (UA) (Negative) 10/25/19 10/25/19 10/25/19 Range/Units 15:22 15:22 16:29 Lymphocytes # (1.0-4.8) k/uL APTT (22.0-30.0) sec Sodium 136 L (137-145) mmol/L Chloride (98-107) mmol/L Carbon Dioxide 19 L (22-30) mmol/L Glucose 363 H (74-99) mg/dL POC Glucose (mg/dL) 325 H (75-99) mg/dL Hemoglobin A1c (4.0-6.0) % Magnesium 1.5 L (1.6-2.3) mg/dL ALT 85 H (4-49) U/L Urine Glucose (UA) 4+ H (Negative) 10/25/19 10/25/19 10/25/19 Range/Units 17:28 18:20 20:03 Lymphocytes # (1.0-4.8) k/uL APTT (22.0-30.0) sec Sodium (137-145) mmol/L Chloride (98-107) mmol/L Carbon Dioxide (22-30) mmol/L Glucose (74-99) mg/dL POC Glucose (mg/dL) 292 H 246 H (75-99) mg/dL Hemoglobin A1c 8.3 H (4.0-6.0) % Magnesium (1.6-2.3) mg/dL ALT (4-49) U/L Urine Glucose (UA) (Negative) 10/26/19 10/26/19 10/26/19 Range/Units 01:51 06:17 06:57 Lymphocytes # (1.0-4.8) k/uL APTT (22.0-30.0) sec Sodium (137-145) mmol/L Chloride 110 H (98-107) mmol/L Carbon Dioxide (22-30) mmol/L Glucose 100 H (74-99) mg/dL POC Glucose (mg/dL) 163 H 130 H (75-99) mg/dL Hemoglobin A1c (4.0-6.0) % Magnesium (1.6-2.3) mg/dL ALT (4-49) U/L Urine Glucose (UA) (Negative) 10/26/19 Range/Units 11:19 Lymphocytes # (1.0-4.8) k/uL APTT (22.0-30.0) sec Sodium (137-145) mmol/L Chloride (98-107) mmol/L Carbon Dioxide (22-30) mmol/L Glucose (74-99) mg/dL POC Glucose (mg/dL) 169 H (75-99) mg/dL Hemoglobin A1c (4.0-6.0) % Magnesium (1.6-2.3) mg/dL ALT (4-49) U/L Urine Glucose (UA) (Negative) Assessment and Plan Assessment: Diabetes mellitus, type II, uncontrolled Epigastric chest pain. Rule out coronary disease and possible GERD Covid 19 ruled out Hyponatremia Decreased carbon dioxide Hypomagnesemia History of asthma, chronic obstructive pulmonary disease History of cerebrovascular accident, TIA Hearing difficulty Hypertension Hyperlipidemia History of chronic liver disease history of degenerative joint disease history of pneumonia Seizure disorder Sleep apnea history of CVA with left-sided weakness History of cardiac catheterization History of anxiety, bipolar, depression, schizophrenia Continued ongoing nicotine dependence Public legal guardian Full code Recommendations and discussion: Recommend to continue current medications, management, and symptomatic treatment. Continue with sliding scale along with Glucotrol. Close monitoring of blood sugars before meals at bedtime. Hemoglobin A1c 8.3. Will initiate Pepcid for possible GERD and patient remains on Protonix 40 mg daily. Due to multiple complex medical issues, prognosis is guarded. Further recommendations to follow. Case management and social work following for possible discharge planning needs patient does reside and [facility] home and plans to return there once stabilized and discharged. Possible discharge in 24 hours.
[2019-10-26] MEDS: FAMOTIDINE 20 MG TAB PO SCH (20:43)
[2019-10-26] MEDS ORDERED: MINERAL OIL-WHITE PETROLATUM 120 GM JAR TOPICAL PRN (21:00)
[2019-10-26] MEDS ORDERED: ARIPiprazole 10 MG TAB PO SCH (21:00)
[2019-10-26] MEDS ORDERED: OLANZapine 10 MG TAB PO SCH (21:00)
[2019-10-26 21:13] VITALS: RESP 18
[2019-10-27] MEDS: HYDROcodone/APAP 5-325MG 1 EACH TAB PO PRN ×2 (01:16→09:28)
[2019-10-27 05:41] VITALS: BP 114/79; PULSE 51; TEMP 98.3
[2019-10-27 07:26] LABS: Basophils % (A) 0 %; Eosinophils # (A) 0.2 k/uL (0-0.7); Eosinophils % (A) 3 %; HCT 42.7 % (39.0-53.0); HGB 14.7 gm/dL (13.0-17.5); Lymphocytes # (A) 1.8 k/uL (1.0-4.8); Lymphocytes % (A) 28 %; MCH 30.8 pg (25.0-35.0); MCHC 34.4 g/dL (31.0-37.0); MCV 89.5 fL (80.0-100.0); Mean Platelet Volume 7.7; Monocytes # (A) 0.3 k/uL (0-1.0); Monocytes % (A) 5 %; Neutrophils % (A) 63 %; Platelet Count 207 k/uL (150-450); RBC 4.78 m/uL (4.30-5.90); RDW 13.4 % (11.5-15.5); WBC 6.4 k/uL (3.8-10.6)
[2019-10-27 07:33] LABS: African American GFR (CKD) >90 (>60 ml/min/1.73 sqM); Anion Gap 6 mmol/L; Blood Urea Nitrogen 14 mg/dL (9-20); Calcium 9.1 mg/dL (8.4-10.2); Carbon Dioxide 20 mmol/L (22-30); Chloride 112 mmol/L (98-107); Glucose 123 mg/dL (74-99); Non-African American GFR(CKD) >90 (>60 ml/min/1.73 sqM); Potassium 4.1 mmol/L (3.5-5.1); Sodium 138 mmol/L (137-145)
[2019-10-27 07:46] LABS: Glucose,Whole Blood 142 mg/dL (75-99)
[2019-10-27 07:47] LABS: Glucose,Whole Blood 131 mg/dL (75-99)
[2019-10-27] MEDS: SODIUM CHLORIDE 0.9% 1,000 ML IV SCH (08:00)
[2019-10-27 08:02] LABS: Glucose,Whole Blood 105 mg/dL (75-99)
[2019-10-27] MEDS ORDERED: ASPIRIN 81 MG PO SCH (09:00)
[2019-10-27] MEDS ORDERED: CHOLECALCIFEROL 1,000 UNIT TAB PO SCH (09:00)
[2019-10-27] MEDS ORDERED: FENOFIBRATE 160 MG TAB PO SCH (09:00)
[2019-10-27] MEDS ORDERED: NON FORMULARY DRUG (Omeprazole 40 MG) PO SCH (09:00)
[2019-10-27] MEDS: metFORMIN 500 MG TAB PO SCH (09:25)
[2019-10-27] MEDS: PANTOPRAZOLE 40 MG TABLET PO SCH (09:26)
[2019-10-27] MEDS: HEPARIN SODIUM,PORCINE 5,000 UNIT/ML 1 ML VIAL SQ SCH (09:26)
[2019-10-27] MEDS: FAMOTIDINE 20 MG TAB PO SCH (09:26)
[2019-10-27] MEDS: LORATADINE 10 MG TAB PO SCH (09:27)
[2019-10-27] MEDS: MULTIVITAMINS, THERA 1 EACH TAB PO SCH (09:27)
[2019-10-27] MEDS: SIMETHICONE 80 MG CHEWABLE PO SCH (09:35)
[2019-10-27] MEDS: INSULIN ASPART (NovoLOG) 100 UNIT/ML VIAL SQ SCH ×2 (09:37→12:03)
[2019-10-27] MEDS: THIAMINE 100 MG TAB PO SCH (09:40)
[2019-10-27 11:06] LABS: Glucose,Whole Blood 128 mg/dL (75-99)
--- NOTE | 2019-10-27 13:12 | P.DS ---
Providers Date of admission: 10/27/19 07:44 Expected date of discharge: 10/27/19 Attending physician: Magdalena Gomez Primary care physician: [facility] Hospital Course: Final diagnosis Diabetes mellitus, type II, uncontrolled Epigastric chest pain. Ruled out coronary disease Possible GERD Covid 19 ruled out Hyponatremia Decreased carbon dioxide Hypomagnesemia History of asthma, chronic obstructive pulmonary disease History of cerebrovascular accident, TIA Hearing difficulty Hypertension Hyperlipidemia History of chronic liver disease history of degenerative joint disease history of pneumonia Seizure disorder Sleep apnea history of CVA with left-sided weakness History of cardiac catheterization History of anxiety, bipolar, depression, schizophrenia Continued ongoing nicotine dependence Public legal guardian Full code Discharge disposition Patient is being discharged in a stable condition with guarded prognosis to home. Patient will follow-up with the [facility] clinic in the outpatient setting upon discharge. Patient to continue with Glucophage and glipizide was added. Patient instructed to continue monitoring blood glucose levels before meals at bedtime and keep a diary of blood glucose readings for primary care follow-up. Total time taken is 35 minutes. History of present illness This is a 49-year-old male who came in and was admitted with diabetes mellitus type 2 uncontrolled with elevated blood sugars and was being closely monitored. Patient also having some epigastric pain most likely gastroesophageal reflux disease with coronary disease ruled out. Patient was tested for Covid 19 and ruled out. Patient to continue with consistent carbohydrate diet and avoid sugars and soda. Patient was initiated on glipizide 2.5 mg daily and will continue along with metformin in the outpatient setting. Patient instructed to follow diabetic diet and keep a diary of blood sugar readings before meals at bedtime and bring with him to primary care provider follow-up. Patient to continue taking Pepcid along with Prilosec in the outpatient setting. Currently patient denies any chest pain, shortness of breath, or palpitations. Patient is afebrile. No reports of nausea or vomiting and patient is tolerating diet. Patient will be discharged today. Patient states he lives with his sister and another friend and does have a legal guardian in the outpatient setting. Patient follows up at [facility]. On exam vital signs are stable. Temp is 98.3 F, pulse is 51, respirations are 18, blood pressure is 114/79 and oxygen saturation is 97% on room air. Cardio S1, S2 are muffled. Respiratory system shows diminished breath sounds at the bases some scattered rhonchi noted. Abdomen is soft, obese, and nontender. Nervous system shows no focal deficits. Please refer to medication reconciliation sheet for a list of medications. Patient Condition at Discharge: Stable Plan - Discharge Summary Discharge Rx Participant: No New Discharge Prescriptions: New glipiZIDE [Glucotrol] 2.5 mg PO AC-BRKFST 30 Days #30 tab Multivitamins, Thera [Multivitamin (formulary)] 1 each PO DAILY@1200 30 Days #30 tab Calcium Carbonate [Tums] 500 mg PO QID PRN chew PRN Reason: Heartburn Thiamine [Vitamin B-1] 100 mg PO DAILY@1200 30 Days #30 tab Continue ARIPiprazole [Abilify] 10 mg PO HS OLANZapine [ZyPREXA] 10 mg PO HS Fenofibrate 160 mg PO DAILY Ondansetron HCl [Zofran] 4 mg PO DAILY PRN PRN Reason: Nausea metFORMIN HCL 1,000 mg PO BID Loratadine 10 mg PO DAILY Simethicone 80 mg PO QID Cholecalciferol (Vitamin D3) [Vitamin D3] 125 mcg PO DAILY predniSONE See Taper PO DAILY Famotidine [Pepcid] 20 mg PO BID Ergocalciferol [Vitamin D2 (DRISDOL)] 50,000 unit PO Q7D Omeprazole [PriLOSEC] 40 mg PO DAILY Ibuprofen [Motrin] 600 mg PO Q8H PRN PRN Reason: Pain Hydrocortisone Cream [Hydrocortisone 1% Cream] 1 applic TOPICAL BID PRN PRN Reason: Rash Eucerin Cream 1 applic TOPICAL BID Aspirin EC [Ecotrin Low Dose] 81 mg PO DAILY Albuterol Inhaler [Ventolin Hfa Inhaler] 2 puff INHALATION RT-Q6H PRN PRN Reason: Shortness Of Breath Discharge Medication List ARIPiprazole [Abilify] 10 mg PO HS 01/19/19 [History] OLANZapine [ZyPREXA] 10 mg PO HS 01/19/19 [History] Fenofibrate 160 mg PO DAILY 04/12/19 [History] Ondansetron HCl [Zofran] 4 mg PO DAILY PRN 04/30/19 [History] metFORMIN HCL 1,000 mg PO BID 04/30/19 [History] Loratadine 10 mg PO DAILY 08/22/19 [History] Simethicone 80 mg PO QID 08/26/19 [History] Albuterol Inhaler [Ventolin Hfa Inhaler] 2 puff INHALATION RT-Q6H PRN 10/25/19 [History] Aspirin EC [Ecotrin Low Dose] 81 mg PO DAILY 10/25/19 [History] Cholecalciferol (Vitamin D3) [Vitamin D3] 125 mcg PO DAILY 10/25/19 [History] Ergocalciferol [Vitamin D2 (DRISDOL)] 50,000 unit PO Q7D 10/25/19 [History] Eucerin Cream 1 applic TOPICAL BID 10/25/19 [History] Famotidine [Pepcid] 20 mg PO BID 10/25/19 [History] Hydrocortisone Cream [Hydrocortisone 1% Cream] 1 applic TOPICAL BID PRN 10/25/19 [History] Ibuprofen [Motrin] 600 mg PO Q8H PRN 10/25/19 [History] Omeprazole [PriLOSEC] 40 mg PO DAILY 10/25/19 [History] predniSONE See Taper PO DAILY 10/25/19 [History] Calcium Carbonate [Tums] 500 mg PO QID PRN chew 10/27/19 [Rx] Multivitamins, Thera [Multivitamin (formulary)] 1 each PO DAILY@1200 30 Days #30 tab 10/27/19 [Rx] Thiamine [Vitamin B-1] 100 mg PO DAILY@1200 30 Days #30 tab 10/27/19 [Rx] glipiZIDE [Glucotrol] 2.5 mg PO AC-BRKFST 30 Days #30 tab 10/27/19 [Rx] Follow up Appointment(s)/Referral(s): [facility] [Primary Care Provider] - 11/02/19 12:30 pm Activity/Diet/Wound Care/Special Instructions: Activity Limited until follow-up Continue current consistent carbohydrate diet Continue to monitor blood sugars and keep a diary for primary care follow-up Avoid pop and sugars Follow-up with primary care provider upon discharge Discharge Disposition: HOME SELF-CARE
[2019-10-30] MEDS ORDERED: ERGOCALCIFEROL 50,000 UNIT CAP PO SCH (09:00)
== END 2019-10-27 13:23 | disposition home or self-care (01) | DRG 638 ==
LOC: EC 15:01 → 5NMEDONC 17:54 → OBSVTOIN 10-27 07:44
PROVIDERS: ADMIT Hospitalist; ATTEND Hospitalist
DX: E11.65 Type 2 diabetes mellitus with hyperglycemia (principal); E87.1 Hypo-osmolality and hyponatremia; I69.354 Hemiplegia and hemiparesis following cerebral infarction affecting left non-dominant side; Z20.828 Contact with and (suspected) exposure to other viral communicable diseases; E66.9 Obesity, unspecified; Z68.33 Body mass index [BMI] 33.0-33.9, adult; E78.5 Hyperlipidemia, unspecified; E83.42 Hypomagnesemia; F17.210 Nicotine dependence, cigarettes, uncomplicated; F20.9 Schizophrenia, unspecified; G40.909 Epilepsy, unspecified, not intractable, without status epilepticus; G47.30 Sleep apnea, unspecified; H91.90 Unspecified hearing loss, unspecified ear; F41.9 Anxiety disorder, unspecified; I10 Essential (primary) hypertension; J44.9 Chronic obstructive pulmonary disease, unspecified; K21.9 Gastro-esophageal reflux disease without esophagitis; Z79.84 Long term (current) use of oral hypoglycemic drugs; Z79.899 Other long term (current) drug therapy; Z80.0 Family history of malignant neoplasm of digestive organs; Z80.1 Family history of malignant neoplasm of trachea, bronchus and lung; Z80.3 Family history of malignant neoplasm of breast; Z83.3 Family history of diabetes mellitus; Z87.01 Personal history of pneumonia (recurrent); K76.9 Liver disease, unspecified; Z88.8 Allergy status to other drugs, medicaments and biological substances; Z88.1 Allergy status to other antibiotic agents; Z91.040 Latex allergy status; Z88.0 Allergy status to penicillin; M19.90 Unspecified osteoarthritis, unspecified site; M54.9 Dorsalgia, unspecified
CPT/HCPCS: 36415; 71046; 80048; 80053; 81003; 82009; 83036; 83735; 85025; 85610; 85730; 87635; 93005; 94640; 96360; 96361; 99284

== ENCOUNTER 2019-11-14 13:08 | Emergency (ER) | payer MEDICARE, OTHER ==
--- NOTE | 2019-11-14 13:49 | XR ---
EXAMINATION TYPE: XR shoulder complete RT DATE OF EXAM: 11/14/2019 CLINICAL HISTORY: Burning arm and shoulder pain. TECHNIQUE: Three views of the right shoulder are obtained. COMPARISON: Right shoulder x-ray May 11, 2019. FINDINGS: There is no acute fracture/dislocation evident in the right shoulder. The acromioclavicul ar and glenohumeral joint spaces remain within normal limits. Distal acromion morphology unremarkable . The visualized ribs are intact and unremarkable. IMPRESSION: Unremarkable study. No significant change from prior.
--- NOTE | 2019-11-14 14:11 | ED ---
Upper Extremity HPI - General Chief Complaint: Extremity Injury, Upper Stated Complaint: Right Shoulder pain Time Seen by Provider: 11/14/19 13:24 Source: patient, RN notes reviewed, old records reviewed Mode of arrival: wheelchair Limitations: no limitations - History of Present Illness Initial Comments: Patient is a 49-year-old male, presents weren't department today for evaluation of right shoulder pain. Reports that he woke up with the pain is worse with movement. Patient states that he's noticed some swelling. Patient states that he's had no nausea or vomiting, just denies any chest pain. He states that he has a range of motion of his elbow and hand and normal sensation distally. - Related Data Home Medications Medication Instructions Recorded Confirmed ARIPiprazole [Abilify] 10 mg PO HS 01/19/19 11/14/19 OLANZapine [ZyPREXA] 10 mg PO HS 01/19/19 11/14/19 Fenofibrate 160 mg PO DAILY 04/12/19 11/14/19 Ondansetron HCl [Zofran] 4 mg PO DAILY PRN 04/30/19 11/14/19 metFORMIN HCL 1,000 mg PO BID 04/30/19 11/14/19 Loratadine 10 mg PO DAILY 08/22/19 11/14/19 Simethicone 80 mg PO QID 08/26/19 11/14/19 Albuterol Inhaler [Ventolin Hfa 2 puff INHALATION RT-Q6H PRN 10/25/19 11/14/19 Inhaler] Aspirin EC [Ecotrin Low Dose] 81 mg PO DAILY 10/25/19 11/14/19 Cholecalciferol (Vitamin D3) 125 mcg PO DAILY 10/25/19 11/14/19 [Vitamin D3] Ergocalciferol [Vitamin D2 50,000 unit PO Q7D 10/25/19 11/14/19 (DRISDOL)] Eucerin Cream 1 applic TOPICAL BID 10/25/19 11/14/19 Famotidine [Pepcid] 20 mg PO BID 10/25/19 11/14/19 Hydrocortisone Cream 1 applic TOPICAL BID PRN 10/25/19 11/14/19 [Hydrocortisone 1% Cream] Ibuprofen [Motrin] 600 mg PO Q8H PRN 10/25/19 11/14/19 Omeprazole [PriLOSEC] 40 mg PO DAILY 10/25/19 11/14/19 Previous Rx's Medication Instructions Recorded Calcium Carbonate [Tums] 500 mg PO QID PRN chew 10/27/19 Multivitamins, Thera [Multivitamin 1 each PO DAILY@1200 30 Days #30 10/27/19 (formulary)] tab Thiamine [Vitamin B-1] 100 mg PO DAILY@1200 30 Days #30 10/27/19 tab glipiZIDE [Glucotrol] 2.5 mg PO AC-BRKFST 30 Days #30 tab 10/27/19 Ibuprofen [Motrin] 600 mg PO Q6HR PRN #20 tab 11/14/19 Allergies Allergy/AdvReac Type Severity Reaction Status Date / Time ciprofloxacin Allergy Unknown Nausea Verified 11/14/19 14:09 dicyclomine HCl [From Bentyl] Allergy Unknown Dyspnea Verified 11/14/19 14:09 latex Allergy Unknown Rash/Hives Verified 11/14/19 14:09 Macrolide Antibiotics Allergy Unknown Nausea Verified 11/14/19 14:09 diphenhydramine HCl Allergy Anaphylaxis Verified 11/14/19 14:09 [From Benadryl] adhesive AdvReac Unknown Itching Verified 11/14/19 14:09 sulfamethoxazole AdvReac Unknown Unknown Verified 11/14/19 14:09 [From Bactrim] trimethoprim [From Bactrim] AdvReac Unknown Unknown Verified 11/14/19 14:09 Review of Systems ROS Statement: Those systems with pertinent positive or pertinent negative responses have been documented in the HPI. ROS Other: All systems not noted in ROS Statement are negative. 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 History of Any Multi-Drug Resistant Organisms: None Reported Past Surgical History: Heart Catheterization, Orthopedic Surgery Additional Past Surgical History / Comment(s): Cysts removed, left thumb surgery, colonoscopy 08/24/2019 Past Anesthesia/Blood Transfusion Reactions: Motion Sickness, Postoperative Nausea & Vomiting (PONV) Past Psychological History: Anxiety, Bipolar, Depression, Schizophrenia Smoking Status: Current every day smoker Past Alcohol Use History: None Reported Past Drug Use History: None Reported - Past Family History Brother(s) Family Medical History: Diabetes Mellitus Additional Family Medical History / Comment(s): Patient has 2 brothers. One from complications from diabetes. The second is alive with diabetes. Sister(s) Family Medical History: Cancer Additional Family Medical History / Comment(s): Patient has one sister with breast cancer. Patient does not have any children. Father Family Medical History: Cancer Additional Family Medical History / Comment(s): Father in his 40s or 50s from colon cancer. Mother Family Medical History: Cancer Additional Family Medical History / Comment(s): Mother at age 68 from lung cancer. General Exam - General Exam Comments Initial Comments: Alert and oriented 49-year-old male. No distress. Limitations: no limitations General appearance: alert, in no apparent distress Head exam: Present: atraumatic, normocephalic, normal inspection Eye exam: Present: normal appearance, PERRL, EOMI. Absent: scleral icterus, conjunctival injection, periorbital swelling ENT exam: Present: normal exam, mucous membranes moist Neck exam: Present: normal inspection. Absent: tenderness, meningismus, lymphadenopathy Respiratory exam: Present: normal lung sounds bilaterally. Absent: respiratory distress, wheezes, rales, rhonchi, stridor Cardiovascular Exam: Present: regular rate, normal rhythm, normal heart sounds. Absent: systolic murmur, diastolic murmur, rubs, gallop, clicks GI/Abdominal exam: Present: soft Extremities exam: Present: normal inspection, full ROM, normal capillary refill. Absent: tenderness, pedal edema, joint swelling, calf tenderness Back exam: Present: normal inspection Neurological exam: Present: alert, oriented X3, CN II-XII intact Psychiatric exam: Present: normal affect, normal mood Skin exam: Present: warm, dry, intact, normal color. Absent: rash Course Vital Signs 11/14/19 11/14/19 13:17 14:27 Temperature 97.9 F 98.0 F Pulse Rate 74 78 Respiratory 18 16 Rate Blood Pressure 125/91 127/78 O2 Sat by Pulse 98 98 Oximetry Medical Decision Making - Medical Decision Making Patient is a 49-year-old male notch back right shoulder pain. Reports that he woke up with a complaint of swelling. Pain is worse with movement. He has full range of motion. Nose continues. Full strength is noted. Shoulder x-rays negative for any acute process. Discussed likely muscle strain. Discussed ret urn parameters and physically follow-up. - Radiology Data Radiology results: report reviewed Normal shoulder x-ray. Negative for any acute process. Disposition Clinical Impression: Right shoulder pain Disposition: HOME SELF-CARE Condition: Good Instructions (If sedation given, give patient instructions): Rotator Cuff Injury (ED) Additional Instructions: Patient to take Motrin Tylenol for shoulder pain. Apply ice over the shoulder to help with swelling and pain as well. Return to the ED if any alarming signs or symptoms occur. Prescriptions: Ibuprofen [Motrin] 600 mg PO Q6HR PRN #20 tab PRN Reason: Pain Is patient prescribed a controlled substance at d/c from ED?: No Referrals: Reina Cordero [facility] [Primary Care Provider] - 1-2 days Time of Disposition: 14:10
[2019-11-14 14:27] VITALS: BP 127/78; PULSE 78; RESP 16; TEMP 98
== END 2019-11-14 14:27 | disposition home or self-care (01) ==
LOC: EC 13:08
DX: M25.511 Pain in right shoulder (principal); M79.89 Other specified soft tissue disorders; F41.9 Anxiety disorder, unspecified; F31.9 Bipolar disorder, unspecified; F20.9 Schizophrenia, unspecified; I25.2 Old myocardial infarction; J44.9 Chronic obstructive pulmonary disease, unspecified; E11.9 Type 2 diabetes mellitus without complications; K21.9 Gastro-esophageal reflux disease without esophagitis; M19.90 Unspecified osteoarthritis, unspecified site; E78.5 Hyperlipidemia, unspecified; I10 Essential (primary) hypertension; G47.30 Sleep apnea, unspecified; I69.354 Hemiplegia and hemiparesis following cerebral infarction affecting left non-dominant side; F17.200 Nicotine dependence, unspecified, uncomplicated; Z79.899 Other long term (current) drug therapy; Z79.84 Long term (current) use of oral hypoglycemic drugs; Z79.51 Long term (current) use of inhaled steroids; Z79.82 Long term (current) use of aspirin; Z88.1 Allergy status to other antibiotic agents; Z88.8 Allergy status to other drugs, medicaments and biological substances; Z91.040 Latex allergy status; Z91.048 Other nonmedicinal substance allergy status; Z88.2 Allergy status to sulfonamides; Z99.89 Dependence on other enabling machines and devices; Z95.5 Presence of coronary angioplasty implant and graft; Z98.890 Other specified postprocedural states
CPT/HCPCS: 99284

== ENCOUNTER 2019-11-23 23:36 | Emergency (ER) | payer MEDICARE, OTHER ==
[2019-11-23 23:47] VITALS: BP 130/89; PULSE 83; RESP 16; TEMP 98.4
[2019-11-23] MEDS ORDERED: ORPHENADRINE 30 MG/ML 2 ML VIAL IM STA (23:56)
[2019-11-23] MEDS ORDERED: KETOROLAC 60 MG/2 ML VIAL IM STA (23:56)
--- NOTE | 2019-11-24 00:10 | ED ---
Back Pain HPI - General Chief Complaint: Back Pain/Injury Stated Complaint: Shoulder/neck/back pain Time Seen by Provider: 11/23/19 23:49 Source: patient, RN notes reviewed, old records reviewed Limitations: no limitations - History of Present Illness Initial Comments: Patient is a 49-year-old male presents emergency department today with right shoulder head and neck pain that is chronic. He reports that it is painful to move. He states that this was causing him not able to sleep well tonight and he called his doctor told to come to the emergency department. He also complains some lower back pain worse with certain movements. Denies any fall or trauma. Patient denies any numbness or tingling down the arm. He reports he was following up with orthopedic regards to shoulder injury and they told him he has arthritis. He has been taking Tylenol with Codeine without pain relief. Patient denies any associated chest pain or shortness of breath at this time. - Related Data Home Medications Medication Instructions Recorded Confirmed ARIPiprazole [Abilify] 10 mg PO HS 01/19/19 11/14/19 OLANZapine [ZyPREXA] 10 mg PO HS 01/19/19 11/14/19 Fenofibrate 160 mg PO DAILY 04/12/19 11/14/19 Ondansetron HCl [Zofran] 4 mg PO DAILY PRN 04/30/19 11/14/19 metFORMIN HCL 1,000 mg PO BID 04/30/19 11/14/19 Loratadine 10 mg PO DAILY 08/22/19 11/14/19 Simethicone 80 mg PO QID 08/26/19 11/14/19 Albuterol Inhaler [Ventolin Hfa 2 puff INHALATION RT-Q6H PRN 10/25/19 11/14/19 Inhaler] Aspirin EC [Ecotrin Low Dose] 81 mg PO DAILY 10/25/19 11/14/19 Cholecalciferol (Vitamin D3) 125 mcg PO DAILY 10/25/19 11/14/19 [Vitamin D3] Ergocalciferol [Vitamin D2 50,000 unit PO Q7D 10/25/19 11/14/19 (DRISDOL)] Eucerin Cream 1 applic TOPICAL BID 10/25/19 11/14/19 Famotidine [Pepcid] 20 mg PO BID 10/25/19 11/14/19 Hydrocortisone Cream 1 applic TOPICAL BID PRN 10/25/19 11/14/19 [Hydrocortisone 1% Cream] Ibuprofen [Motrin] 600 mg PO Q8H PRN 10/25/19 11/14/19 Omeprazole [PriLOSEC] 40 mg PO DAILY 10/25/19 11/14/19 Previous Rx's Medication Instructions Recorded Calcium Carbonate [Tums] 500 mg PO QID PRN chew 10/27/19 Multivitamins, Thera [Multivitamin 1 each PO DAILY@1200 30 Days #30 10/27/19 (formulary)] tab Thiamine [Vitamin B-1] 100 mg PO DAILY@1200 30 Days #30 10/27/19 tab glipiZIDE [Glucotrol] 2.5 mg PO AC-BRKFST 30 Days #30 tab 10/27/19 Ibuprofen [Motrin] 600 mg PO Q6HR PRN #20 tab 11/14/19 Cyclobenzaprine [Flexeril] 10 mg PO TID #9 tab 11/24/19 Allergies Allergy/AdvReac Type Severity Reaction Status Date / Time ciprofloxacin Allergy Unknown Nausea Verified 11/23/19 23:47 dicyclomine HCl [From Bentyl] Allergy Unknown Dyspnea Verified 11/23/19 23:47 latex Allergy Unknown Rash/Hives Verified 11/23/19 23:47 Macrolide Antibiotics Allergy Unknown Nausea Verified 11/23/19 23:47 diphenhydramine HCl Allergy Anaphylaxis Verified 11/23/19 23:47 [From Benadryl] adhesive AdvReac Unknown Itching Verified 11/23/19 23:47 sulfamethoxazole AdvReac Unknown Unknown Verified 11/23/19 23:47 [From Bactrim] trimethoprim [From Bactrim] AdvReac Unknown Unknown Verified 11/23/19 23:47 Review of Systems ROS Statement: Those systems with pertinent positive or pertinent negative responses have been documented in the HPI. ROS Other: All systems not noted in ROS Statement are negative. 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 History of Any Multi-Drug Resistant Organisms: None Reported Past Surgical History: Heart Catheterization, Orthopedic Surgery Additional Past Surgical History / Comment(s): Cysts removed, left thumb surgery, colonoscopy 08/24/2019 Past Anesthesia/Blood Transfusion Reactions: Motion Sickness, Postoperative Nausea & Vomiting (PONV) Past Psychological History: Anxiety, Bipolar, Depression, Schizophrenia Smoking Status: Current every day smoker Past Alcohol Use History: None Reported Past Drug Use History: None Reported - Past Family History Brother(s) Family Medical History: Diabetes Mellitus Additional Family Medical History / Comment(s): Patient has 2 brothers. One from complications from diabetes. The second is alive with diabetes. Sister(s) Family Medical History: Cancer Additional Family Medical History / Comment(s): Patient has one sister with breast cancer. Patient does not have any children. Father Family Medical History: Cancer Additional Family Medical History / Comment(s): Father in his 40s or 50s from colon cancer. Mother Family Medical History: Cancer Additional Family Medical History / Comment(s): Mother at age 68 from lung cancer. General Exam - General Exam Comments Initial Comments: Alert and oriented 49-year-old male. No significant distress. Limitations: no limitations General appearance: alert Head exam: Present: atraumatic Eye exam: Present: normal appearance, PERRL, EOMI. Absent: scleral icterus, conjunctival injection, periorbital swelling ENT exam: Present: normal exam, mucous membranes moist Neck exam: Present: normal inspection. Absent: tenderness, meningismus, lymphadenopathy Respiratory exam: Present: normal lung sounds bilaterally. Absent: respiratory distress, wheezes, rales, rhonchi, stridor Cardiovascular Exam: Present: regular rate, normal rhythm, normal heart sounds. Absent: systolic murmur, diastolic murmur, rubs, gallop, clicks GI/Abdominal exam: Present: soft, normal bowel sounds. Absent: distended, tenderness, guarding, rebound, rigid Extremities exam: Present: normal inspection, full ROM, normal capillary refill, other (Patient has some tenderness to palpation over the right trapezius muscle). Absent: tenderness, pedal edema, joint swelling, calf tenderness Back exam: Present: normal inspection Neurological exam: Present: alert, oriented X3, CN II-XII intact Psychiatric exam: Present: normal affect, normal mood Skin exam: Present: warm, dry, intact, normal color. Absent: rash Course Vital Signs 11/23/19 23:44 Temperature 98.4 F Pulse Rate 83 Respiratory 16 Rate Blood Pressure 130/89 O2 Sat by Pulse 97 Oximetry Medical Decision Making - Medical Decision Making 49-year-old male presents emergency room today with chronic neck and right shoulder pain worse with movement. He does have evidence of some tenderness over the trapezius muscle. No rashes. Has full range of motion. No history of trauma. Also cleansed chronic lower back pain. Denies any saddle anesthesias. The same Patient is given IM Toradol and Norflex and discharged home. Discussed using anti-inflammatory medication and muscle relaxers for pain relief. All questions answered return parameters were discussed. Disposition Clinical Impression: Chronic back pain, Shoulder strain Disposition: HOME SELF-CARE Condition: Good Instructions (If sedation given, give patient instructions): Acute Low Back Pain (ED) Additional Instructions: Take medication as prescribed. Follow-up with PCP and return to the emergency department if any alarming signs or symptoms occur. Prescriptions: Cyclobenzaprine [Flexeril] 10 mg PO TID #9 tab Is patient prescribed a controlled substance at d/c from ED?: No Referrals: Sean Delarosa MD [Primary Care Provider] - 1-2 days Time of Disposition: 00:09
== END 2019-11-24 00:14 | disposition home or self-care (01) ==
LOC: EC 23:36
DX: S46.911A Strain of unspecified muscle, fascia and tendon at shoulder and upper arm level, right arm, initial encounter (principal); G89.29 Other chronic pain; M54.5 Low back pain; M54.2 Cervicalgia; M19.90 Unspecified osteoarthritis, unspecified site; J44.9 Chronic obstructive pulmonary disease, unspecified; I25.2 Old myocardial infarction; E11.9 Type 2 diabetes mellitus without complications; K21.9 Gastro-esophageal reflux disease without esophagitis; F41.9 Anxiety disorder, unspecified; F31.9 Bipolar disorder, unspecified; F20.9 Schizophrenia, unspecified; F17.200 Nicotine dependence, unspecified, uncomplicated; E78.5 Hyperlipidemia, unspecified; I10 Essential (primary) hypertension; G47.30 Sleep apnea, unspecified; I69.354 Hemiplegia and hemiparesis following cerebral infarction affecting left non-dominant side; Z79.899 Other long term (current) drug therapy; Z79.84 Long term (current) use of oral hypoglycemic drugs; Z79.82 Long term (current) use of aspirin; Z79.51 Long term (current) use of inhaled steroids; Z88.1 Allergy status to other antibiotic agents; Z88.8 Allergy status to other drugs, medicaments and biological substances; Z91.040 Latex allergy status; Z88.2 Allergy status to sulfonamides; Z91.048 Other nonmedicinal substance allergy status; Z99.89 Dependence on other enabling machines and devices; Z95.5 Presence of coronary angioplasty implant and graft; X50.9XXA Other and unspecified overexertion or strenuous movements or postures, initial encounter
CPT/HCPCS: 96372 ×2; 99283; J2360; J1885

== ENCOUNTER 2019-12-06 12:29 | Emergency (ER) | payer MEDICARE, OTHER ==
[2019-12-06 12:37] VITALS: RESP 20; TEMP 99
[2019-12-06] MEDS ORDERED: ONDANSETRON 4 MG/2 ML VIAL IVP STA (12:44)
[2019-12-06] MEDS ORDERED: SODIUM CHLORIDE 0.9% 1,000 ML IV STA (12:44)
[2019-12-06] MEDS ORDERED: PANTOPRAZOLE 40 MG/10 ML VIAL IVP STA (12:44)
--- NOTE | 2019-12-06 12:47 | ED ---
General Adult HPI - General Chief complaint: Abdominal Pain Stated complaint: Abd pain Time Seen by Provider: 12/06/19 12:38 Source: patient, EMS, RN notes reviewed, old records reviewed Mode of arrival: EMS Limitations: no limitations - History of Present Illness Initial comments: Patient is a pleasant 49-year-old male presenting to the emergency department with nausea and abdominal cramping. Patient has chronic abdominal problems. Patient states he has had dozens of CT scans previously. Patient states he has been nauseated and decreased oral intake over the past week. Patient has abdominal cramping. No constipation or diarrhea. No fevers. Symptoms are similar to his chronic abdominal problems. - Related Data Home Medications Medication Instructions Recorded Confirmed ARIPiprazole [Abilify] 10 mg PO HS 01/19/19 12/06/19 OLANZapine [ZyPREXA] 10 mg PO HS 01/19/19 12/06/19 Fenofibrate 160 mg PO DAILY 04/12/19 12/06/19 Ondansetron HCl [Zofran] 4 mg PO DAILY PRN 04/30/19 12/06/19 metFORMIN HCL 1,000 mg PO BID 04/30/19 12/06/19 Loratadine 10 mg PO DAILY 08/22/19 12/06/19 Simethicone 80 mg PO QID 08/26/19 12/06/19 Albuterol Inhaler [Ventolin Hfa 2 puff INHALATION RT-Q6H PRN 10/25/19 12/06/19 Inhaler] Aspirin EC [Ecotrin Low Dose] 81 mg PO DAILY 10/25/19 12/06/19 Ergocalciferol [Vitamin D2 50,000 unit PO MO 10/25/19 12/06/19 (DRISDOL)] Eucerin Cream 1 applic TOPICAL BID 10/25/19 12/06/19 Famotidine [Pepcid] 20 mg PO BID 10/25/19 12/06/19 Hydrocortisone Cream 1 applic TOPICAL BID PRN 10/25/19 12/06/19 [Hydrocortisone 1% Cream] Ibuprofen [Motrin] 600 mg PO Q8H PRN 10/25/19 12/06/19 Omeprazole [PriLOSEC] 40 mg PO DAILY 10/25/19 12/06/19 Multivitamins, Thera [Multivitamin 1 tab PO DAILY 12/06/19 12/06/19 (formulary)] glipiZIDE [Glucotrol] 5 mg PO AC-BRKFST 12/06/19 12/06/19 Previous Rx's Medication Instructions Recorded Calcium Carbonate [Tums] 500 mg PO QID PRN chew 10/27/19 Thiamine [Vitamin B-1] 100 mg PO DAILY@1200 30 Days #30 10/27/19 tab Cyclobenzaprine [Flexeril] 10 mg PO TID #9 tab 11/24/19 Allergies Allergy/AdvReac Type Severity Reaction Status Date / Time dicyclomine HCl [From Bentyl] Allergy Unknown Dyspnea Verified 12/06/19 13:53 latex Allergy Unknown Rash/Hives Verified 12/06/19 13:53 diphenhydramine HCl Allergy Anaphylaxis Verified 12/06/19 13:53 [From Benadryl] adhesive AdvReac Unknown Itching Verified 12/06/19 13:53 ciprofloxacin AdvReac Unknown Nausea Verified 12/06/19 13:53 Macrolide Antibiotics AdvReac Unknown Nausea Verified 12/06/19 13:53 sulfamethoxazole AdvReac Unknown Unknown Verified 12/06/19 13:53 [From Bactrim] trimethoprim [From Bactrim] AdvReac Unknown Unknown Verified 12/06/19 13:53 Review of Systems ROS Statement: Those systems with pertinent positive or pertinent negative responses have been documented in the HPI. ROS Other: All systems not noted in ROS Statement are negative. Constitutional: Denies: fever Eyes: Denies: eye pain ENT: Denies: ear pain Respiratory: Denies: cough Cardiovascular: Denies: palpitations Endocrine: Denies: fatigue Gastrointestinal: Reports: as per HPI, nausea, vomiting. 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 History of Any Multi-Drug Resistant Organisms: None Reported Past Surgical History: Heart Catheterization, Orthopedic Surgery Additional Past Surgical History / Comment(s): Cysts removed, left thumb surgery, colonoscopy 08/24/2019 Past Anesthesia/Blood Transfusion Reactions: Motion Sickness, Postoperative Nausea & Vomiting (PONV) Past Psychological History: Anxiety, Bipolar, Depression, Schizophrenia Smoking Status: Current every day smoker Past Alcohol Use History: None Reported Past Drug Use History: None Reported - Past Family History Brother(s) Family Medical History: Diabetes Mellitus Additional Family Medical History / Comment(s): Patient has 2 brothers. One from complications from diabetes. The second is alive with diabetes. Sister(s) Family Medical History: Cancer Additional Family Medical History / Comment(s): Patient has one sister with breast cancer. Patient does not have any children. Father Family Medical History: Cancer Additional Family Medical History / Comment(s): Father in his 40s or 50s from colon cancer. Mother Family Medical History: Cancer Additional Family Medical History / Comment(s): Mother at age 68 from lung cancer. General Exam Limitations: no limitations General appearance: alert, in no apparent distress Head exam: Present: normocephalic Eye exam: Present: normal appearance, PERRL ENT exam: Present: normal oropharynx Neck exam: Present: normal inspection Respiratory exam: Present: normal lung sounds bilaterally Cardiovascular Exam: Present: regular rate, normal rhythm Expanded Peripheral pulses: 2+: Dorsalis Pedis (R), Dorsalis Pedis (L) GI/Abdominal exam: Present: soft, normal bowel sounds. Absent: tenderness, guarding, rebound, rigid, pulsatile mass Extremities exam: Present: normal inspection. Absent: pedal edema, calf tenderness Neurological exam: Present: alert Psychiatric exam: Present: normal affect, normal mood Skin exam: Present: normal color Course Vital Signs 12/06/19 12:33 Temperature 99 F Pulse Rate 87 Respiratory 20 Rate Blood Pressure 141/91 O2 Sat by Pulse 97 Oximetry Medical Decision Making - Medical Decision Making Patient reevaluated and resting comfortably in bed. Patient updated on results and plan. Patient is comfortable with discharge home. Patient does request a Tylenol 3 that he regularly takes prior to discharge. - Lab Data Result diagrams: 12/06/19 13:23 12/06/19 13:23 Lab Results 12/06/19 12/06/19 Range/Units 13:23 13:23 WBC 6.8 (3.8-10.6) k/uL RBC 5.16 (4.30-5.90) m/uL Hgb 15.8 (13.0-17.5) gm/dL Hct 44.9 (39.0-53.0) % MCV 87.1 (80.0-100.0) fL MCH 30.6 (25.0-35.0) pg MCHC 35.2 (31.0-37.0) g/dL RDW 13.1 (11.5-15.5) % Plt Count 215 (150-450) k/uL Neutrophils % 67 % Lymphocytes % 23 % Monocytes % 6 % Eosinophils % 3 % Basophils % 0 % Neutrophils # 4.5 (1.3-7.7) k/uL Lymphocytes # 1.5 (1.0-4.8) k/uL Monocytes # 0.4 (0-1.0) k/uL Eosinophils # 0.2 (0-0.7) k/uL Basophils # 0.0 (0-0.2) k/uL Sodium 140 (137-145) mmol/L Potassium 4.2 (3.5-5.1) mmol/L Chloride 110 H (98-107) mmol/L Carbon Dioxide 23 (22-30) mmol/L Anion Gap 7 mmol/L BUN 11 (9-20) mg/dL Creatinine 0.77 (0.66-1.25) mg/dL Est GFR (CKD-EPI)AfAm >90 (>60 ml/min/1.73 sqM) Est GFR (CKD-EPI)NonAf >90 (>60 ml/min/1.73 sqM) Glucose 87 (74-99) mg/dL Calcium 9.9 (8.4-10.2) mg/dL Total Bilirubin 0.3 (0.2-1.3) mg/dL AST 47 (17-59) U/L ALT 70 H (4-49) U/L Alkaline Phosphatase 63 (38-126) U/L Total Protein 6.7 (6.3-8.2) g/dL Albumin 4.2 (3.5-5.0) g/dL Amylase 34 (30-110) U/L Lipase 85 (23-300) U/L - Radiology Data Radiology results: image reviewed (Abdominal x-ray: Nonspecific abdomen. No evidence of obstruction.) Disposition Clinical Impression: Nausea, Abdominal cramping Disposition: HOME SELF-CARE Condition: Stable Instructions (If sedation given, give patient instructions): Abdominal Pain (ED), Acute Nausea and Vomiting (ED) Additional Instructions: Please follow-up with primary care physician in the next day or 2 for recheck. Please also follow-up with your ad clerk in the next couple days for recheck. Return for uncontrolled vomiting, fevers, pain, worsening symptoms or other concerns. Is patient prescribed a controlled substance at d/c from ED?: No Referrals: Ramya Saul MD [Primary Care Provider] - 1-2 days Time of Disposition: 14:44
--- NOTE | 2019-12-06 13:36 | XR ---
EXAMINATION TYPE: XR KUB DATE OF EXAM: 12/06/2019 COMPARISON: 08/20/2019 HISTORY: Pain TECHNIQUE: One view abdominal series FINDINGS: The osseous structures are intact. The bowel gas pattern is nonspecific. Lung bases are clear. Calc ifications in the pelvis likely vascular. Sclerotic density overlying the left iliac wing stable from prior. Mild hypertrophic change of the spine. IMPRESSION: 1. Nonspecific abdomen. No evidence of obstruction.
[2019-12-06 14:30] LABS: ALT 70 U/L (4-49); AST 47 U/L (17-59); African American GFR (CKD) >90 (>60 ml/min/1.73 sqM); Albumin 4.2 g/dL (3.5-5.0); Alkaline Phosphatase 63 U/L (38-126); Amylase 34 U/L (30-110); Anion Gap 7 mmol/L; Blood Urea Nitrogen 11 mg/dL (9-20); Calcium 9.9 mg/dL (8.4-10.2); Carbon Dioxide 23 mmol/L (22-30); Chloride 110 mmol/L (98-107); Glucose 87 mg/dL (74-99); Non-African American GFR(CKD) >90 (>60 ml/min/1.73 sqM); Potassium 4.2 mmol/L (3.5-5.1); Sodium 140 mmol/L (137-145); Total Bilirubin 0.3 mg/dL (0.2-1.3); Total Protein 6.7 g/dL (6.3-8.2)
[2019-12-06 14:38] LABS: Basophils % (A) 0 %; Eosinophils # (A) 0.2 k/uL (0-0.7); Eosinophils % (A) 3 %; HCT 44.9 % (39.0-53.0); HGB 15.8 gm/dL (13.0-17.5); Lymphocytes # (A) 1.5 k/uL (1.0-4.8); Lymphocytes % (A) 23 %; MCH 30.6 pg (25.0-35.0); MCHC 35.2 g/dL (31.0-37.0); MCV 87.1 fL (80.0-100.0); Mean Platelet Volume 7.9; Monocytes # (A) 0.4 k/uL (0-1.0); Monocytes % (A) 6 %; Neutrophils # (A) 4.5 k/uL (1.3-7.7); Neutrophils % (A) 67 %; Platelet Count 215 k/uL (150-450); RBC 5.16 m/uL (4.30-5.90); RDW 13.1 % (11.5-15.5); WBC 6.8 k/uL (3.8-10.6)
[2019-12-06] MEDS ORDERED: Acetaminophen-Codeine 300-30mg TAB PO STA (14:45)
[2019-12-06 14:53] VITALS: BP 126/81; PULSE 86
[2019-12-06 14:58] LABS: Appearance,Urine Clear (Clear); Bilirubin,Urine Negative (Negative); Blood,Urine Negative (Negative); Color,Urine Light Yellow; Glucose,Urine (UA) Negative (Negative); Ketones,Urine Negative (Negative); Leukocyte Esterase,Urine Negative (Negative); Nitrite,Urine Negative (Negative); Protein,Urine Negative (Negative); Specific Gravity,Urine 1.008 (1.001-1.035); Urobilinogen,Urine <2.0 mg/dL (<2.0)
== END 2019-12-06 15:02 | disposition home or self-care (01) ==
LOC: EC 12:29
DX: R10.9 Unspecified abdominal pain (principal); R11.2 Nausea with vomiting, unspecified; J44.9 Chronic obstructive pulmonary disease, unspecified; E11.9 Type 2 diabetes mellitus without complications; K21.9 Gastro-esophageal reflux disease without esophagitis; E78.5 Hyperlipidemia, unspecified; I10 Essential (primary) hypertension; I25.2 Old myocardial infarction; I69.354 Hemiplegia and hemiparesis following cerebral infarction affecting left non-dominant side; M19.90 Unspecified osteoarthritis, unspecified site; G47.30 Sleep apnea, unspecified; F17.200 Nicotine dependence, unspecified, uncomplicated; F41.9 Anxiety disorder, unspecified; F31.9 Bipolar disorder, unspecified; F90.9 Attention-deficit hyperactivity disorder, unspecified type; Z79.84 Long term (current) use of oral hypoglycemic drugs; Z79.82 Long term (current) use of aspirin; Z79.51 Long term (current) use of inhaled steroids; Z79.899 Other long term (current) drug therapy; Z88.1 Allergy status to other antibiotic agents; Z88.0 Allergy status to penicillin; Z91.040 Latex allergy status; Z88.8 Allergy status to other drugs, medicaments and biological substances; Z88.2 Allergy status to sulfonamides; Z99.89 Dependence on other enabling machines and devices; Z95.5 Presence of coronary angioplasty implant and graft
CPT/HCPCS: 36415; 80053; 82150; 83690; 85025; 81003; 74018; 99285; 96374; 96375; 96361 ×2; J2405; C9113

== ENCOUNTER 2019-12-07 11:32 | Emergency (ER) | payer MEDICARE, OTHER ==
[2019-12-07 11:56] VITALS: BP 118/78; PULSE 81; RESP 18; TEMP 98.4
--- NOTE | 2019-12-07 12:17 | ED ---
General Adult HPI - General Chief complaint: Abdominal Pain Stated complaint: abd pain Time Seen by Provider: 12/07/19 11:59 Source: patient, RN notes reviewed, old records reviewed Mode of arrival: ambulatory Limitations: no limitations - History of Present Illness Initial comments: 49-year-old male presents for reevaluation of abdominal pain and nausea. Patient was seen in the emergency department yesterday, workup was negative. Patient had had an episode where he almost vomited one time yesterday evening. He called his medicine tech who is able to see him next week. He denies fever. He denies significant vomiting again just one episode where he almost vomited. This occurred approximately 12-16 hours ago. He had a bowel movement today. No diarrhea. No fever. - Related Data Home Medications Medication Instructions Recorded Confirmed ARIPiprazole [Abilify] 10 mg PO HS 01/19/19 12/06/19 OLANZapine [ZyPREXA] 10 mg PO HS 01/19/19 12/06/19 Fenofibrate 160 mg PO DAILY 04/12/19 12/06/19 Ondansetron HCl [Zofran] 4 mg PO DAILY PRN 04/30/19 12/06/19 metFORMIN HCL 1,000 mg PO BID 04/30/19 12/06/19 Loratadine 10 mg PO DAILY 08/22/19 12/06/19 Simethicone 80 mg PO QID 08/26/19 12/06/19 Albuterol Inhaler [Ventolin Hfa 2 puff INHALATION RT-Q6H PRN 10/25/19 12/06/19 Inhaler] Aspirin EC [Ecotrin Low Dose] 81 mg PO DAILY 10/25/19 12/06/19 Ergocalciferol [Vitamin D2 50,000 unit PO MO 10/25/19 12/06/19 (DRISDOL)] Eucerin Cream 1 applic TOPICAL BID 10/25/19 12/06/19 Famotidine [Pepcid] 20 mg PO BID 10/25/19 12/06/19 Hydrocortisone Cream 1 applic TOPICAL BID PRN 10/25/19 12/06/19 [Hydrocortisone 1% Cream] Ibuprofen [Motrin] 600 mg PO Q8H PRN 10/25/19 12/06/19 Omeprazole [PriLOSEC] 40 mg PO DAILY 10/25/19 12/06/19 Multivitamins, Thera [Multivitamin 1 tab PO DAILY 12/06/19 12/06/19 (formulary)] glipiZIDE [Glucotrol] 5 mg PO AC-BRKFST 12/06/19 12/06/19 Previous Rx's Medication Instructions Recorded Calcium Carbonate [Tums] 500 mg PO QID PRN chew 10/27/19 Thiamine [Vitamin B-1] 100 mg PO DAILY@1200 30 Days #30 10/27/19 tab Cyclobenzaprine [Flexeril] 10 mg PO TID #9 tab 11/24/19 Allergies Allergy/AdvReac Type Severity Reaction Status Date / Time dicyclomine HCl [From Bentyl] Allergy Unknown Dyspnea Verified 12/06/19 13:53 latex Allergy Unknown Rash/Hives Verified 12/06/19 13:53 diphenhydramine HCl Allergy Anaphylaxis Verified 12/06/19 13:53 [From Benadryl] adhesive AdvReac Unknown Itching Verified 12/06/19 13:53 ciprofloxacin AdvReac Unknown Nausea Verified 12/06/19 13:53 Macrolide Antibiotics AdvReac Unknown Nausea Verified 12/06/19 13:53 sulfamethoxazole AdvReac Unknown Unknown Verified 12/06/19 13:53 [From Bactrim] trimethoprim [From Bactrim] AdvReac Unknown Unknown Verified 12/06/19 13:53 Review of Systems ROS Statement: Those systems with pertinent positive or pertinent negative responses have been documented in the HPI. ROS Other: All systems not noted in ROS Statement are negative. Past Medical History Past Medical History: Asthma, Chest Pain / Angina, COPD, CVA/TIA, Diabetes Mellitus, GERD/Reflux, Hearing Disorder / Deafness, Hyperlipidemia, Hypertension, Liver Disease, Osteoarthritis (OA), Pneumonia, Seizure Disorder, Sleep Apnea/CPAP/BIPAP Additional Past Medical History / Comment(s): states CVA at 35 yrs old with left sided weakness- uses cane., states seizure at 35 yrs old., DDD- back & neck pain., carpal tunnel syndrome., Cyst on kidney, uses cpap., states having abdom inal pain with diarrhea and nausea ., Lives with his sister and has [employer] public guardian. History of Any Multi-Drug Resistant Organisms: None Reported Past Surgical History: Heart Catheterization, Orthopedic Surgery Additional Past Surgical History / Comment(s): Cysts removed, left thumb surgery, colonoscopy 08/24/2019 Past Anesthesia/Blood Transfusion Reactions: Motion Sickness, Postoperative Nausea & Vomiting (PONV) Past Psychological History: Anxiety, Bipolar, Depression, Schizophrenia Smoking Status: Current every day smoker Past Alcohol Use History: None Reported Past Drug Use History: None Reported - Past Family History Brother(s) Family Medical History: Diabetes Mellitus Additional Family Medical History / Comment(s): Patient has 2 brothers. One from complications from diabetes. The second is alive with diabetes. Sister(s) Family Medical History: Cancer Additional Family Medical History / Comment(s): Patient has one sister with breast cancer. Patient does not have any children. Father Family Medical History: Cancer Additional Family Medical History / Comment(s): Father in his 40s or 50s from colon cancer. Mother Family Medical History: Cancer Additional Family Medical History / Comment(s): Mother at age 68 from lung cancer. General Exam Limitations: no limitations General appearance: alert, in no apparent distress Head exam: Present: atraumatic, normocephalic Eye exam: Present: normal appearance, PERRL ENT exam: Present: normal exam Neck exam: Present: normal inspection. Absent: tenderness, meningismus Respiratory exam: Present: normal lung sounds bilaterally. Absent: respiratory distress, wheezes Cardiovascular Exam: Present: regular rate, normal rhythm GI/Abdominal exam: Present: soft, distended (Mild distention, no fluid wave). Absent: tenderness, guarding, rebound Extremities exam: Present: normal inspection, normal capillary refill. Absent: pedal edema Back exam: Present: full ROM Neurological exam: Present: alert, oriented X3, CN II-XII intact. Absent: motor sensory deficit Psychiatric exam: Present: normal affect, normal mood Skin exam: Present: warm, dry, intact. Absent: cyanosis, diaphoretic Course Vital Signs 12/07/19 11:55 Temperature 98.4 F Pulse Rate 81 Respiratory 18 Rate Blood Pressure 118/78 O2 Sat by Pulse 98 Oximetry Medical Decision Making - Medical Decision Making Workup from yesterday reviewed, normal CBC, no leukocytosis, stable hemoglobin, normal electrolytes, no acidosis. Urinalysis is negative for infection, no ketones, no findings to suggest dehydration or acute infection. Patient examined, stable vitals, resting comfortably. He has minimal distention, no rebound or guarding. I did recommend this patient continues to follow with gastroenterology regarding his chronic abdominal pain. We discussed return parameters, discussed oral hydration and symptomatic control at home. He does have Zofran and proton pump inhibitors at home. He will return with worsening or changing symptoms. He'll maintain his appointment with his medicine tech next week. Disposition Clinical Impression: Abdominal pain, Nausea Disposition: HOME SELF-CARE Condition: Fair Instructions (If sedation given, give patient instructions): Abdominal Pain (ED) Is patient prescribed a controlled substance at d/c from ED?: No Referrals: Ramya Saul MD [Primary Care Provider] - 1-2 days Decision to Admit Reason: Admit from EC Decision Date: 12/07/19 Decision Time: 12:16
== END 2019-12-07 12:36 | disposition home or self-care (01) ==
LOC: EC 11:32
DX: G89.29 Other chronic pain (principal); R10.9 Unspecified abdominal pain; R11.0 Nausea; E11.9 Type 2 diabetes mellitus without complications; K21.9 Gastro-esophageal reflux disease without esophagitis; J44.9 Chronic obstructive pulmonary disease, unspecified; E78.5 Hyperlipidemia, unspecified; G47.30 Sleep apnea, unspecified; F20.9 Schizophrenia, unspecified; F31.9 Bipolar disorder, unspecified; H91.90 Unspecified hearing loss, unspecified ear; M19.90 Unspecified osteoarthritis, unspecified site; F17.200 Nicotine dependence, unspecified, uncomplicated; Z79.82 Long term (current) use of aspirin; Z79.899 Other long term (current) drug therapy; Z79.84 Long term (current) use of oral hypoglycemic drugs; Z88.2 Allergy status to sulfonamides; Z91.040 Latex allergy status; Z88.1 Allergy status to other antibiotic agents; Z88.8 Allergy status to other drugs, medicaments and biological substances; Z91.048 Other nonmedicinal substance allergy status; Z99.89 Dependence on other enabling machines and devices; Z86.73 Personal history of transient ischemic attack (TIA), and cerebral infarction without residual deficits
CPT/HCPCS: 99284

== ENCOUNTER 2019-12-14 18:56 | Emergency (ER) | payer MEDICARE, OTHER ==
[2019-12-14] MEDS ORDERED: SODIUM CHLORIDE 0.9% 1,000 ML IV STA (19:19)
[2019-12-14 20:34] LABS: Basophils % (A) 0 %; Eosinophils # (A) 0.3 k/uL (0-0.7); Eosinophils % (A) 4 %; HCT 43.4 % (39.0-53.0); HGB 15.1 gm/dL (13.0-17.5); Lymphocytes # (A) 1.6 k/uL (1.0-4.8); Lymphocytes % (A) 18 %; MCH 30.7 pg (25.0-35.0); MCHC 34.8 g/dL (31.0-37.0); MCV 88.3 fL (80.0-100.0); Mean Platelet Volume 8.1; Monocytes # (A) 0.4 k/uL (0-1.0); Monocytes % (A) 5 %; Neutrophils # (A) 6.3 k/uL (1.3-7.7); Neutrophils % (A) 72 %; Platelet Count 220 k/uL (150-450); RBC 4.92 m/uL (4.30-5.90); RDW 13.3 % (11.5-15.5); WBC 8.7 k/uL (3.8-10.6)
[2019-12-14 20:39] LABS: ALT 75 U/L (4-49); AST 52 U/L (17-59); African American GFR (CKD) >90 (>60 ml/min/1.73 sqM); Alkaline Phosphatase 77 U/L (38-126); Anion Gap 6 mmol/L; Blood Urea Nitrogen 12 mg/dL (9-20); Calcium 9.4 mg/dL (8.4-10.2); Carbon Dioxide 21 mmol/L (22-30); Chloride 110 mmol/L (98-107); Glucose 178 mg/dL (74-99); Magnesium 1.8 mg/dL (1.6-2.3); Non-African American GFR(CKD) >90 (>60 ml/min/1.73 sqM); Potassium 3.9 mmol/L (3.5-5.1); Sodium 137 mmol/L (137-145); Total Bilirubin 0.2 mg/dL (0.2-1.3); Total Protein 6.5 g/dL (6.3-8.2)
[2019-12-14 20:50] LABS: D-Dimer 0.5 mg/L FEU (<0.60); INR 0.9 (<1.2); Partial Thromboplastin Time 22.6 sec (22.0-30.0); Prothrombin Time 9.6 sec (9.0-12.0)
--- NOTE | 2019-12-14 21:13 | XR ---
EXAMINATION TYPE: XR chest 2V DATE OF EXAM: 12/14/2019 COMPARISON: 10/25/2019 HISTORY: Weakness TECHNIQUE: 2 views FINDINGS: Heart and mediastinum are normal. Lungs are clear. Diaphragm is normal. Bony thorax appears normal. IMPRESSION: Normal chest. No change.
--- NOTE | 2019-12-14 21:32 | ED ---
Chest Pain HPI - General Source: patient Mode of arrival: wheelchair Limitations: no limitations <Wilda Justin - Last Filed: 12/14/19 23:30> <Kylie Christopher - Last Filed: 12/18/19 01:14> - General Chief Complaint: Chest Pain Stated Complaint: Chest and abd pain Time Seen by Provider: 12/14/19 19:05 - History of Present Illness Initial Comments: 49-year-old male patient presents to the emergency department today reporting mid chest pain. States that the pain has been present throughout the day today. States he does have some mild shortness of breath with this. Denies any nausea or vomiting. Denies any sweats or dizziness. He denies cough or congestion. Denies fever or chills. Patient states he is at rest and the pain started. Patient denies any recent rash, abdominal pain, nausea, vomiting, diarrhea, constipation, back pain, numbness, tingling, dizziness, weakness, hematuria, dysuria, urinary urgency, urinary frequency, headache, visual changes, or any other complaints. (Wilda Justin) - Related Data Home Medications Medication Instructions Recorded Confirmed ARIPiprazole [Abilify] 10 mg PO HS 01/19/19 12/07/19 OLANZapine [ZyPREXA] 10 mg PO HS 01/19/19 12/07/19 Fenofibrate 160 mg PO DAILY 04/12/19 12/07/19 Ondansetron HCl [Zofran] 4 mg PO DAILY PRN 04/30/19 12/07/19 metFORMIN HCL 1,000 mg PO BID 04/30/19 12/07/19 Loratadine 10 mg PO DAILY 08/22/19 12/07/19 Simethicone 80 mg PO QID 08/26/19 12/07/19 Albuterol Inhaler [Ventolin Hfa 2 puff INHALATION RT-Q6H PRN 10/25/19 12/07/19 Inhaler] Aspirin EC [Ecotrin Low Dose] 81 mg PO DAILY 10/25/19 12/07/19 Ergocalciferol [Vitamin D2 50,000 unit PO MO 10/25/19 12/07/19 (DRISDOL)] Eucerin Cream 1 applic TOPICAL BID 10/25/19 12/07/19 Famotidine [Pepcid] 20 mg PO BID 10/25/19 12/07/19 Hydrocortisone Cream 1 applic TOPICAL BID PRN 10/25/19 12/07/19 [Hydrocortisone 1% Cream] Ibuprofen [Motrin] 600 mg PO Q8H PRN 10/25/19 12/07/19 Omeprazole [PriLOSEC] 40 mg PO DAILY 10/25/19 12/07/19 Multivitamins, Thera [Multivitamin 1 tab PO DAILY 12/06/19 12/07/19 (formulary)] glipiZIDE [Glucotrol] 5 mg PO AC-BRKFST 12/06/19 12/07/19 Previous Rx's Medication Instructions Recorded Calcium Carbonate [Tums] 500 mg PO QID PRN chew 10/27/19 Thiamine [Vitamin B-1] 100 mg PO DAILY@1200 30 Days #30 10/27/19 tab Cyclobenzaprine [Flexeril] 10 mg PO TID #9 tab 11/24/19 Allergies Allergy/AdvReac Type Severity Reaction Status Date / Time dicyclomine HCl [From Bentyl] Allergy Unknown Dyspnea Verified 12/14/19 19:01 latex Allergy Unknown Rash/Hives Verified 12/14/19 19:01 diphenhydramine HCl Allergy Anaphylaxis Verified 12/14/19 19:01 [From Benadryl] adhesive AdvReac Unknown Itching Verified 12/14/19 19:01 ciprofloxacin AdvReac Unknown Nausea Verified 12/14/19 19:01 Macrolide Antibiotics AdvReac Unknown Nausea Verified 12/14/19 19:01 sulfamethoxazole AdvReac Unknown Unknown Verified 12/14/19 19:01 [From Bactrim] trimethoprim [From Bactrim] AdvReac Unknown Unknown Verified 12/14/19 19:01 Review of Systems ROS Other: All systems not noted in ROS Statement are negative. <Wilda Justin - Last Filed: 12/14/19 23:30> ROS Other: All systems not noted in ROS Statement are negative. <Kylie Christopher - Last Filed: 12/18/19 01:14> ROS Statement: Those systems with pertinent positive or pertinent negative responses have been documented in the HPI. EKG Findings - EKG Comments: EKG Findings:: EKG obtained at 1937 shows normal sinus rhythm with ventricular rate of 78, MD interval 128, QRS duration 102, QT 392, QTc 446. No evidence of ST elevation or depression. 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 History of Any Multi-Drug Resistant Organisms: None Reported Past Surgical History: Heart Catheterization, Orthopedic Surgery Additional Past Surgical History / Comment(s): Cysts removed, left thumb surgery, colonoscopy 08/24/2019 Past Anesthesia/Blood Transfusion Reactions: Motion Sickness, Postoperative Nausea & Vomiting (PONV) Past Psychological History: Anxiety, Bipolar, Depression, Schizophrenia Smoking Status: Current every day smoker Past Alcohol Use History: None Reported Past Drug Use History: None Reported - Past Family History Brother(s) Family Medical History: Diabetes Mellitus Additional Family Medical History / Comment(s): Patient has 2 brothers. One from complications from diabetes. The second is alive with diabetes. Sister(s) Family Medical History: Cancer Additional Family Medical History / Comment(s): Patient has one sister with breast cancer. Patient does not have any children. Father Family Medical History: Cancer Additional Family Medical History / Comment(s): Father in his 40s or 50s from colon cancer. Mother Family Medical History: Cancer Additional Family Medical History / Comment(s): Mother at age 68 from lung cancer. <Wilda Justin - Last Filed: 12/14/19 23:30> General Exam Limitations: no limitations General appearance: alert, in no apparent distress, other (This is a well- developed, well-nourished adult male patient in no acute distress. Vital signs upon presentation are temperature 98.8F, pulse 87, respirations 18, blood pressure 154/91, pulse ox 98% on room air.) ENT exam: Present: normal exam, normal oropharynx, mucous membranes moist Respiratory exam: Present: normal lung sounds bilaterally. Absent: respiratory distress, wheezes, rales, rhonchi, stridor Cardiovascular Exam: Present: regular rate, normal rhythm, normal heart sounds. Absent: systolic murmur, diastolic murmur, rubs, gallop, clicks GI/Abdominal exam: Present: soft, normal bowel sounds. Absent: distended, tenderness, guarding, rebound, rigid Neurological exam: Present: alert, oriented X3, CN II-XII intact Psychiatric exam: Present: normal affect, normal mood Skin exam: Present: warm, dry, intact, normal color. Absent: rash <Wilda Justin - Last Filed: 12/14/19 23:30> Course Vital Signs 12/14/19 12/14/19 18:57 22:02 Temperature 98.8 F 98.2 F Pulse Rate 87 78 Respiratory 18 17 Rate Blood Pressure 154/91 133/89 O2 Sat by Pulse 98 97 Oximetry Chest Pain MDM <Wilda Justin - Last Filed: 12/14/19 23:30> <Kylie Christopher - Last Filed: 12/18/19 01:14> - [facility]:Two-view x-ray of the chest is obtained. Report was reviewed in its entirety. Impression by Dr. Wu shows normal chest. No change. MDM: 49-year-old male patient presented to the emergency department today for ev aluation of left-sided chest pain. Physical examination was unremarkable. Abdomen soft and nontender. Chest x-ray showed no acute cardio pulmonary process. Labs reviewed and showed normal troponin. EKG showed normal sinus rhythm with no ST elevation or depression. Upon reevaluation patient states he does feel better. He will be discharged at this time to follow-up with his primary care physician for recheck in 1-2 days. Return parameters were discussed in detail. He verbalizes understanding and agrees with this plan. (Wilda Justin) I was available for consultation in the emergency department. The history and physical exam were done by the midlevel provider. I was consulted for this patients care. I reviewed the case with the midlevel provider and based on their presentation of the patient, I agree with the assessment, medical decision making and plan of care as documented. Chart was dictated using [employer] dictation software. Attempts were made to correct any dictation errors however some typographical errors may persist. Patient was seen during a national state of emergency due to the Covid-19 pandemic. (Kylie Christopher) Disposition Is patient prescribed a controlled substance at d/c from ED?: No Time of Disposition: 21:32 <Wilda Justin - Last Filed: 12/14/19 23:30> <Kylie Christopher - Last Filed: 12/18/19 01:14> Clinical Impression: Chest pain Disposition: HOME SELF-CARE Condition: Good Instructions (If sedation given, give patient instructions): Chest Pain (ED) Additional Instructions: Increase fluids. Rest. Follow up with your primary care physician for recheck in 1-2 days. Return immediately for any new, worsening, or concerning symptoms. Referrals: Ramya Saul MD [Primary Care Provider] - 1-2 days
[2019-12-14 22:04] VITALS: BP 133/89; PULSE 78; RESP 17; TEMP 98.2
== END 2019-12-14 22:04 | disposition home or self-care (01) ==
LOC: EC 18:56
DX: R07.9 Chest pain, unspecified (principal); R10.9 Unspecified abdominal pain; R06.02 Shortness of breath; J44.9 Chronic obstructive pulmonary disease, unspecified; E11.9 Type 2 diabetes mellitus without complications; I10 Essential (primary) hypertension; E78.5 Hyperlipidemia, unspecified; G47.30 Sleep apnea, unspecified; G40.909 Epilepsy, unspecified, not intractable, without status epilepticus; K21.9 Gastro-esophageal reflux disease without esophagitis; F41.9 Anxiety disorder, unspecified; F31.9 Bipolar disorder, unspecified; F17.200 Nicotine dependence, unspecified, uncomplicated; Z79.84 Long term (current) use of oral hypoglycemic drugs; Z79.899 Other long term (current) drug therapy; Z79.82 Long term (current) use of aspirin; Z91.040 Latex allergy status; Z88.8 Allergy status to other drugs, medicaments and biological substances; Z91.048 Other nonmedicinal substance allergy status; Z88.1 Allergy status to other antibiotic agents; Z88.2 Allergy status to sulfonamides; Z99.89 Dependence on other enabling machines and devices; Z86.73 Personal history of transient ischemic attack (TIA), and cerebral infarction without residual deficits
CPT/HCPCS: 36415; 71046; 80053; 83690; 83735; 84484; 85025; 85379; 85610; 85730; 93005; 96360; 96361; 99285

== ENCOUNTER 2020-01-18 13:00 | Emergency (ER) | payer MEDICARE, OTHER ==
[2020-01-18 13:13] VITALS: BP 108/68; PULSE 78; RESP 18; TEMP 98.2
--- NOTE | 2020-01-18 13:23 | ED ---
General Adult HPI - General Chief complaint: Chest Pain Stated complaint: chest pain and abd pain Time Seen by Provider: 01/18/20 13:00 Source: patient, RN notes reviewed, old records reviewed Mode of arrival: ambulatory Limitations: no limitations - History of Present Illness Initial comments: This is a 49-year-old male who presents emergency department stating that his lower abdomen had a little bit of pain this morning so he decided come in to be evaluated. Patient states it doesn't hurt currently however it was across the whole lower abdomen. Patient states she's had this intermittent pain over the last 3 days. Patient states she's had no diarrhea no nausea no vomiting no dysuria no hematuria and no urinary frequency. Patient denies any back pain. Patient states she's been eating and drinking normally. I asked the patient about his chest pain because it was documented in the nursing notes he stated to me that he did not have chest pain he felt like he might have a chest cold because yesterday he coughed a few times. Patient denies any fever patient denies shortness of breath patient denies coughing up any sputum. Patient has no other symptoms at this time. - Related Data Home Medications Medication Instructions Recorded Confirmed ARIPiprazole [Abilify] 10 mg PO HS 01/19/19 12/07/19 OLANZapine [ZyPREXA] 10 mg PO HS 01/19/19 12/07/19 Fenofibrate 160 mg PO DAILY 04/12/19 12/07/19 Ondansetron HCl [Zofran] 4 mg PO DAILY PRN 04/30/19 12/07/19 metFORMIN HCL 1,000 mg PO BID 04/30/19 12/07/19 Loratadine 10 mg PO DAILY 08/22/19 12/07/19 Simethicone 80 mg PO QID 08/26/19 12/07/19 Albuterol Inhaler [Ventolin Hfa 2 puff INHALATION RT-Q6H PRN 10/25/19 12/07/19 Inhaler] Aspirin EC [Ecotrin Low Dose] 81 mg PO DAILY 10/25/19 12/07/19 Ergocalciferol [Vitamin D2 50,000 unit PO MO 10/25/19 12/07/19 (DRISDOL)] Eucerin Cream 1 applic TOPICAL BID 10/25/19 12/07/19 Famotidine [Pepcid] 20 mg PO BID 10/25/19 12/07/19 Hydrocortisone Cream 1 applic TOPICAL BID PRN 10/25/19 12/07/19 [Hydrocortisone 1% Cream] Ibuprofen [Motrin] 600 mg PO Q8H PRN 10/25/19 12/07/19 Omeprazole [PriLOSEC] 40 mg PO DAILY 10/25/19 12/07/19 Multivitamins, Thera [Multivitamin 1 tab PO DAILY 12/06/19 12/07/19 (formulary)] glipiZIDE [Glucotrol] 5 mg PO AC-BRKFST 12/06/19 12/07/19 Previous Rx's Medication Instructions Recorded Calcium Carbonate [Tums] 500 mg PO QID PRN chew 10/27/19 Thiamine [Vitamin B-1] 100 mg PO DAILY@1200 30 Days #30 10/27/19 tab Cyclobenzaprine [Flexeril] 10 mg PO TID #9 tab 11/24/19 Allergies Allergy/AdvReac Type Severity Reaction Status Date / Time dicyclomine HCl [From Bentyl] Allergy Unknown Dyspnea Verified 01/18/20 13:13 latex Allergy Unknown Rash/Hives Verified 01/18/20 13:13 diphenhydramine HCl Allergy Anaphylaxis Verified 01/18/20 13:13 [From Benadryl] adhesive AdvReac Unknown Itching Verified 01/18/20 13:13 ciprofloxacin AdvReac Unknown Nausea Verified 01/18/20 13:13 Macrolide Antibiotics AdvReac Unknown Nausea Verified 01/18/20 13:13 sulfamethoxazole AdvReac Unknown Unknown Verified 01/18/20 13:13 [From Bactrim] trimethoprim [From Bactrim] AdvReac Unknown Unknown Verified 01/18/20 13:13 Review of Systems ROS Statement: Those systems with pertinent positive or pertinent negative responses have been documented in the HPI. ROS Other: All systems not noted in ROS Statement are negative. 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 History of Any Multi-Drug Resistant Organisms: None Reported Past Surgical History: Heart Catheterization, Orthopedic Surgery Additional Past Surgical History / Comment(s): Cysts removed, left thumb surgery, colonoscopy 08/24/2019 Past Anesthesia/Blood Transfusion Reactions: Motion Sickness, Postoperative Nausea & Vomiting (PONV) Past Psychological History: Anxiety, Bipolar, Depression, Schizophrenia Smoking Status: Current every day smoker Past Alcohol Use History: None Reported Past Drug Use History: None Reported - Past Family History Brother(s) Family Medical History: Diabetes Mellitus Additional Family Medical History / Comment(s): Patient has 2 brothers. One from complications from diabetes. The second is alive with diabetes. Sister(s) Family Medical History: Cancer Additional Family Medical History / Comment(s): Patient has one sister with breast cancer. Patient does not have any children. Father Family Medical History: Cancer Additional Family Medical History / Comment(s): Father in his 40s or 50s from colon cancer. Mother Family Medical History: Cancer Additional Family Medical History / Comment(s): Mother at age 68 from lung cancer. General Exam - General Exam Comments Initial Comments: GENERAL: Patient is well-developed and well-nourished. Patient is nontoxic and well- hydrated and is in no acute distress. ENT: Neck is soft and supple. No significant lymphadenopathy is noted. Oropharynx is clear. Moist mucous membranes. Neck has full range of motion without eliciting any pain. EYES: The sclera were anicteric and conjunctiva were pink and moist. Extraocular movements were intact and pupils were equal round and reactive to light. Eyelids were unremarkable. PULMONARY: Unlabored respirations. Good breath sounds bilaterally. No audible rales rhonchi or wheezing was noted. CARDIOVASCULAR: There is a regular rate and rhythm without any murmurs gallops or rubs. ABDOMEN: Soft and nontender with normal bowel sounds. No palpable organomegaly was noted. There is no palpable pulsatile mass. SKIN: Skin is clear with no lesions or rashes and otherwise unremarkable. NEUROLOGIC: Patient is alert and oriented x3. Cranial nerves II through XII are grossly intact. Motor and sensory are also intact. Normal speech, volume and content. Symmetrical smile. MUSCULOSKELETAL: Normal extremities with adequate strength and full range of motion. No lower extremity swelling or edema. No calf tenderness. LYMPHATICS: No significant lymphadenopathy is noted PSYCHIATRIC: Normal psychiatric evaluation. Limitations: no limitations Course Vital Signs 01/18/20 13:10 Temperature 98.2 F Pulse Rate 78 Respiratory 18 Rate Blood Pressure 108/68 O2 Sat by Pulse 98 Oximetry Medical Decision Making - Medical Decision Making EKG shows normal sinus rhythm at 66 beats per minute ND interval is 122 QRS is 94 Q-T intervals 42 QTC is 421 per patient's EKG shows no ST segment elevation or depression. Chest x-ray shows no acute abnormality. Disposition Clinical Impression: Abdominal pain Disposition: HOME SELF-CARE Instructions (If sedation given, give patient instructions): Abdominal Pain (ED) Is patient prescribed a controlled substance at d/c from ED?: No Referrals: Ramya Saul MD [Primary Care Provider] - 1-2 days Time of Disposition: 14:12
--- NOTE | 2020-01-18 13:50 | XR ---
EXAMINATION TYPE: XR chest 2V DATE OF EXAM: 01/18/2020 COMPARISON: 12/14/2019 TECHNIQUE: PA and lateral views submitted. HISTORY: Difficulty breathing FINDINGS: The lungs are clear and there is no pneumothorax, pleural effusion, or focal pneumonia. Heart size normal. No overt failure. Biapical pleural thickening. Hypertrophic and degenerative change of the sp ine. IMPRESSION: 1. No acute process.
== END 2020-01-18 14:26 | disposition home or self-care (01) ==
LOC: EC 13:00
DX: R10.9 Unspecified abdominal pain (principal); R07.9 Chest pain, unspecified; E11.9 Type 2 diabetes mellitus without complications; E78.5 Hyperlipidemia, unspecified; I10 Essential (primary) hypertension; K21.9 Gastro-esophageal reflux disease without esophagitis; G47.30 Sleep apnea, unspecified; F17.200 Nicotine dependence, unspecified, uncomplicated; Z79.82 Long term (current) use of aspirin; Z79.84 Long term (current) use of oral hypoglycemic drugs; Z79.899 Other long term (current) drug therapy; Z88.8 Allergy status to other drugs, medicaments and biological substances; Z91.040 Latex allergy status; Z91.048 Other nonmedicinal substance allergy status; Z88.1 Allergy status to other antibiotic agents; Z88.2 Allergy status to sulfonamides; Z86.73 Personal history of transient ischemic attack (TIA), and cerebral infarction without residual deficits; Z99.89 Dependence on other enabling machines and devices
CPT/HCPCS: 71046; 93005; 99285

== ENCOUNTER 2020-01-19 11:15 | Emergency (ER) | payer MEDICARE, OTHER ==
[2020-01-19] MEDS ORDERED: PANTOPRAZOLE 40 MG/10 ML VIAL IVP STA (12:02)
[2020-01-19] MEDS ORDERED: SODIUM CHLORIDE 0.9% 1,000 ML IV STA (12:02)
--- NOTE | 2020-01-19 12:05 | ED ---
Chest Pain HPI - General Chief Complaint: Chest Pain Stated Complaint: chest pain Time Seen by Provider: 01/19/20 11:47 Source: patient, RN notes reviewed, old records reviewed Mode of arrival: ambulatory Limitations: no limitations - History of Present Illness Initial Comments: This is a 49-year-old male who presents emergency department today for eval uation for concern for complaints of chest discomfort and mid abdominal pain. His emergency department today for similar complaints. He states that he does drink a lot of pop and he has acid reflux. Patient believes this could be be contributing to his pain. He reports a smoker and history of chronic COPD. Denies any change in his cough, reports it's a dry cough. Patient states that he is having some looser stools today. He did not eat anything yet today. - Related Data Home Medications Medication Instructions Recorded Confirmed ARIPiprazole [Abilify] 10 mg PO HS 01/19/19 01/19/20 OLANZapine [ZyPREXA] 10 mg PO HS 01/19/19 01/19/20 Fenofibrate 160 mg PO DAILY 04/12/19 01/19/20 metFORMIN HCL 1,000 mg PO BID 04/30/19 01/19/20 Loratadine 10 mg PO DAILY 08/22/19 01/19/20 Albuterol Inhaler [Ventolin Hfa 2 puff INHALATION RT-Q6H PRN 10/25/19 01/19/20 Inhaler] Aspirin EC [Ecotrin Low Dose] 81 mg PO DAILY 10/25/19 01/19/20 Eucerin Cream 1 applic TOPICAL BID 10/25/19 01/19/20 Hydrocortisone Cream 1 applic TOPICAL BID PRN 10/25/19 01/19/20 [Hydrocortisone 1% Cream] Omeprazole [PriLOSEC] 40 mg PO DAILY 10/25/19 01/19/20 Multivitamins, Thera [Multivitamin 1 tab PO DAILY 12/06/19 01/19/20 (formulary)] Dicyclomine HCl 20 mg PO QID PRN 01/19/20 01/19/20 Fluticasone Propionate [Flovent 2 puff INHALATION RT-BID 01/19/20 01/19/20 Diskus] Ibuprofen [Motrin] 400 mg PO Q6HR PRN 01/19/20 01/19/20 Varenicline [Chantix Continuing 1 mg PO BID 01/19/20 01/19/20 Pack] glipiZIDE [Glucotrol] 10 mg PO DAILY 01/19/20 01/19/20 Previous Rx's Medication Instructions Recorded Calcium Carbonate [Tums] 500 mg PO QID PRN chew 10/27/19 Famotidine [Pepcid] 20 mg PO BID #12 tablet 01/19/20 Allergies Allergy/AdvReac Type Severity Reaction Status Date / Time dicyclomine HCl [From Bentyl] Allergy Unknown Dyspnea Verified 01/19/20 11:28 latex Allergy Unknown Rash/Hives Verified 01/19/20 11:28 diphenhydramine HCl Allergy Anaphylaxis Verified 01/19/20 11:28 [From Benadryl] adhesive AdvReac Unknown Itching Verified 01/19/20 11:28 ciprofloxacin AdvReac Unknown Nausea Verified 01/19/20 11:28 Macrolide Antibiotics AdvReac Unknown Nausea Verified 01/19/20 11:28 sulfamethoxazole AdvReac Unknown Unknown Verified 01/19/20 11:28 [From Bactrim] trimethoprim [From Bactrim] AdvReac Unknown Unknown Verified 01/19/20 11:28 Review of Systems ROS Statement: Those systems with pertinent positive or pertinent negative responses have been documented in the HPI. ROS Other: All systems not noted in ROS Statement are negative. EKG Findings - EKG Comments: EKG Findings:: EKG shows normal sinus rhythm left axis deviation. Low voltage QRS. Abnormal EKG. Ventricular rate 69 beats were minute period. Was 1:30 milliseconds. QS duration is 96 ms. QT QTc is 392/420 ms. 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 History of Any Multi-Drug Resistant Organisms: None Reported Past Surgical History: Heart Catheterization, Orthopedic Surgery Additional Past Surgical History / Comment(s): Cysts removed, left thumb surgery, colonoscopy 08/24/2019 Past Anesthesia/Blood Transfusion Reactions: Motion Sickness, Postoperative Nausea & Vomiting (PONV) Past Psychological History: Anxiety, Bipolar, Depression, Schizophrenia Smoking Status: Current every day smoker Past Alcohol Use History: None Reported Past Drug Use History: None Reported - Past Family History Brother(s) Family Medical History: Diabetes Mellitus Additional Family Medical History / Comment(s): Patient has 2 brothers. One from complications from diabetes. The second is alive with diabetes. Sister(s) Family Medical History: Cancer Additional Family Medical History / Comment(s): Patient has one sister with breast cancer. Patient does not have any children. Father Family Medical History: Cancer Additional Family Medical History / Comment(s): Father in his 40s or 50s from colon cancer. Mother Family Medical History: Cancer Additional Family Medical History / Comment(s): Mother at age 68 from lung cancer. General Exam - General Exam Comments Initial Comments: 49-year-old male. No significant distress. Limitations: no limitations General appearance: alert, in no apparent distress Head exam: Present: atraumatic, normocephalic, normal inspection Eye exam: Present: normal appearance, PERRL, EOMI. Absent: scleral icterus, conjunctival injection, periorbital swelling ENT exam: Present: normal exam, mucous membranes moist Neck exam: Present: normal inspection. Absent: tenderness, meningismus, lymphadenopathy Respiratory exam: Present: normal lung sounds bilaterally. Absent: respiratory distress, wheezes, rales, rhonchi, stridor Cardiovascular Exam: Present: regular rate GI/Abdominal exam: Present: soft, tenderness (Minimal epigastric tenderness. ), normal bowel sounds. Absent: distended, guarding, rebound, rigid Extremities exam: Present: normal inspection, full ROM, normal capillary refill. Absent: tenderness, pedal edema, joint swelling, calf tenderness Back exam: Present: normal inspection Neurological exam: Present: alert, oriented X3, CN II-XII intact Psychiatric exam: Present: normal affect, normal mood Skin exam: Present: warm, dry, intact, normal color. Absent: rash Course Vital Signs 01/19/20 11:26 Temperature 98.8 F Pulse Rate 94 Respiratory 18 Rate Blood Pressure 122/82 O2 Sat by Pulse 99 Oximetry Chest Pain MDM - MDM 7-year-old male presents today for evaluation for concern for chest pain centralized and abdominal pain. He relates is related to acid reflux. EKG is performed for acute changes. Chest x-ray reviewed from yesterday was normal. Labs are otherwise unremarkable. Discussed patient's pain symptoms seem to related to gastric reflux. Discussed quitting smoking and to change diet. Patient is agreeable to treatment plan will comply. Disposition Clinical Impression: GERD (gastroesophageal reflux disease) Disposition: HOME SELF-CARE Condition: Good Instructions (If sedation given, give patient instructions): Gastroesophageal Reflux Disease (ED) Additional Instructions: Please use medication as discussed. Please follow up with family doctor if symptoms have not improved over the next two days. Please return to the emergency room if your symptoms increase or worsen or for any other concerns. Prescriptions: Famotidine [Pepcid] 20 mg PO BID #12 tablet Is patient prescribed a controlled substance at d/c from ED?: No Referrals: Ramya Saul MD [Primary Care Provider] - 1-2 days Time of Disposition: 13:34
[2020-01-19 12:24] LABS: Basophils % (A) 0 %; Eosinophils # (A) 0.1 k/uL (0-0.7); Eosinophils % (A) 1 %; HCT 46.2 % (39.0-53.0); HGB 16.1 gm/dL (13.0-17.5); Lymphocytes % (A) 12 %; MCH 30.7 pg (25.0-35.0); MCHC 34.9 g/dL (31.0-37.0); MCV 88.1 fL (80.0-100.0); Mean Platelet Volume 7.9; Monocytes # (A) 0.4 k/uL (0-1.0); Monocytes % (A) 4 %; Neutrophils # (A) 7.2 k/uL (1.3-7.7); Neutrophils % (A) 82 %; Platelet Count 181 k/uL (150-450); RBC 5.24 m/uL (4.30-5.90); RDW 13.5 % (11.5-15.5); WBC 8.8 k/uL (3.8-10.6)
[2020-01-19 12:32] LABS: ALT 139 U/L (4-49); AST 65 U/L (17-59); African American GFR (CKD) >90 (>60 ml/min/1.73 sqM); Albumin 4.2 g/dL (3.5-5.0); Alkaline Phosphatase 67 U/L (38-126); Anion Gap 7 mmol/L; Blood Urea Nitrogen 11 mg/dL (9-20); Carbon Dioxide 19 mmol/L (22-30); Chloride 111 mmol/L (98-107); Glucose 136 mg/dL (74-99); Magnesium 1.7 mg/dL (1.6-2.3); Non-African American GFR(CKD) >90 (>60 ml/min/1.73 sqM); Potassium 4.1 mmol/L (3.5-5.1); Sodium 137 mmol/L (137-145); Total Bilirubin 0.6 mg/dL (0.2-1.3); Total Protein 6.3 g/dL (6.3-8.2)
[2020-01-19 12:36] LABS: Prothrombin Time 9.9 sec (9.0-12.0)
[2020-01-19 12:47] LABS: Partial Thromboplastin Time 21.7 sec (22.0-30.0)
[2020-01-19 13:47] VITALS: BP 128/71; PULSE 67; RESP 20; TEMP 98
== END 2020-01-19 13:47 | disposition home or self-care (01) ==
LOC: EC 11:15
DX: K21.9 Gastro-esophageal reflux disease without esophagitis (principal); R10.9 Unspecified abdominal pain; F41.9 Anxiety disorder, unspecified; F31.9 Bipolar disorder, unspecified; G40.909 Epilepsy, unspecified, not intractable, without status epilepticus; E78.5 Hyperlipidemia, unspecified; E11.9 Type 2 diabetes mellitus without complications; I10 Essential (primary) hypertension; J44.9 Chronic obstructive pulmonary disease, unspecified; M19.90 Unspecified osteoarthritis, unspecified site; I25.2 Old myocardial infarction; G47.30 Sleep apnea, unspecified; I69.354 Hemiplegia and hemiparesis following cerebral infarction affecting left non-dominant side; F17.200 Nicotine dependence, unspecified, uncomplicated; Z79.1 Long term (current) use of non-steroidal anti-inflammatories (NSAID); Z79.51 Long term (current) use of inhaled steroids; Z79.82 Long term (current) use of aspirin; Z79.84 Long term (current) use of oral hypoglycemic drugs; Z79.899 Other long term (current) drug therapy; Z88.1 Allergy status to other antibiotic agents; Z88.2 Allergy status to sulfonamides; Z88.8 Allergy status to other drugs, medicaments and biological substances; Z91.040 Latex allergy status; Z91.048 Other nonmedicinal substance allergy status; Z99.89 Dependence on other enabling machines and devices; Z95.5 Presence of coronary angioplasty implant and graft
CPT/HCPCS: 36415; 93005; 80053; 83735; 84484; 85025; 85610; 85730; 99285; 96374; 96361; C9113

== ENCOUNTER → 2020-02-19 | Outpatient (CLI) | payer MEDICARE, OTHER ==
--- NOTE | 2020-02-19 17:41 | NM ---
EXAMINATION TYPE: NM gastric emptying static DATE OF EXAM: 02/19/2020 COMPARISON: NONE HISTORY: 49-year-old male R11.0, nausea TECHNIQUE: Following administration of 2.13 mCi Tc 99m Sulfur Colloid with 4 oz. Eggs and [address], projection images of the abdomen were obtained 5 minutes post ingestion. FINDINGS: Patient Emptying Values 1 Hour: Image obtained but unable to calculate emptying percentage 2 Hours: Image obtained but unable to calculate emptying percentage 3 Hours: Patient did not return for imaging 4 Hours: Patient did not return for imaging. IMPRESSION: The technologist reports that the patient left after the second hour image and did not return. Unable to calculate gastric emptying percentage.
== END | disposition home or self-care (01) ==
LOC: RADNMMAIN 06:39
PROVIDERS: ATTEND Internal Medicine Gastroenterology
DX: R11.0 Nausea (principal)
CPT/HCPCS: 78264; A9541

== ENCOUNTER 2020-02-20 21:55 | Emergency (ER) | payer MEDICARE, OTHER ==
[2020-02-20 21:58] VITALS: PULSE 93; RESP 18; TEMP 99
[2020-02-20 22:10] LABS: Glucose,Whole Blood 104 mg/dL (75-99)
[2020-02-20] MEDS ORDERED: SODIUM CHLORIDE 0.9% 1,000 ML IV STA (22:21)
[2020-02-20] MEDS ORDERED: MAG HYDROX/AL HYDROX/SIMETH 30 ML, HYOSCYAMINE ELIXIR 10 ML, LIDOCAINE VISCOUS 2% 10 ML PO STA ×3 (22:21)
[2020-02-20 22:43] LABS: Appearance,Urine Clear (Clear); Basophils % (A) 0 %; Bilirubin,Urine Negative (Negative); Blood,Urine Negative (Negative); Color,Urine Yellow; Eosinophils # (A) 0.3 k/uL (0-0.7); Eosinophils % (A) 4 %; Glucose,Urine (UA) Negative (Negative); HCT 43.6 % (39.0-53.0); HGB 14.8 gm/dL (13.0-17.5); Ketones,Urine Negative (Negative); Leukocyte Esterase,Urine Negative (Negative); Lymphocytes # (A) 1.7 k/uL (1.0-4.8); Lymphocytes % (A) 23 %; MCH 29.4 pg (25.0-35.0); MCV 86.3 fL (80.0-100.0); Mean Platelet Volume 7.3; Monocytes # (A) 0.4 k/uL (0-1.0); Monocytes % (A) 5 %; Neutrophils % (A) 66 %; Nitrite,Urine Negative (Negative); PH, Urine 5.5 (5.0-8.0); Platelet Count 223 k/uL (150-450); Protein,Urine Negative (Negative); RBC 5.06 m/uL (4.30-5.90); RDW 13.7 % (11.5-15.5); Specific Gravity,Urine 1.011 (1.001-1.035); Urobilinogen,Urine <2.0 mg/dL (<2.0); WBC 7.7 k/uL (3.8-10.6)
[2020-02-20 22:57] LABS: ALT 95 U/L (4-49); AST 45 U/L (17-59); African American GFR (CKD) >90 (>60 ml/min/1.73 sqM); Albumin 3.9 g/dL (3.5-5.0); Alkaline Phosphatase 77 U/L (38-126); Anion Gap 6 mmol/L; Blood Urea Nitrogen 10 mg/dL (9-20); Calcium 9.3 mg/dL (8.4-10.2); Carbon Dioxide 21 mmol/L (22-30); Chloride 110 mmol/L (98-107); Glucose 103 mg/dL (74-99); Non-African American GFR(CKD) >90 (>60 ml/min/1.73 sqM); Potassium 3.7 mmol/L (3.5-5.1); Sodium 137 mmol/L (137-145); Total Bilirubin 0.3 mg/dL (0.2-1.3)
--- NOTE | 2020-02-20 23:27 | ED ---
Abdominal Pain HPI - General Chief Complaint: Abdominal Pain Stated Complaint: Urogenital Time Seen by Provider: 02/20/20 22:09 Source: patient Mode of arrival: ambulatory Limitations: no limitations - History of Present Illness Initial Comments: Sean Santamaria is a 49-year-old male well-known to the emergency department for his frequent visits. Patient presents today reporting that he has had multiple days of burning epigastric abdominal pain, because of this pain he's not been eating or drinking. Patient states that today he began having burning with urination and that his urine is very dark. Vision denies any associated fevers, chills, nausea, vomiting, chest pain, shortness of breath. He does have a history of acid reflux. - Related Data Home Medications Medication Instructions Recorded Confirmed ARIPiprazole [Abilify] 10 mg PO HS 01/19/19 01/19/20 OLANZapine [ZyPREXA] 10 mg PO HS 01/19/19 01/19/20 Fenofibrate 160 mg PO DAILY 04/12/19 01/19/20 metFORMIN HCL 1,000 mg PO BID 04/30/19 01/19/20 Loratadine 10 mg PO DAILY 08/22/19 01/19/20 Albuterol Inhaler [Ventolin Hfa 2 puff INHALATION RT-Q6H PRN 10/25/19 01/19/20 Inhaler] Aspirin EC [Ecotrin Low Dose] 81 mg PO DAILY 10/25/19 01/19/20 Eucerin Cream 1 applic TOPICAL BID 10/25/19 01/19/20 Hydrocortisone Cream 1 applic TOPICAL BID PRN 10/25/19 01/19/20 [Hydrocortisone 1% Cream] Omeprazole [PriLOSEC] 40 mg PO DAILY 10/25/19 01/19/20 Multivitamins, Thera [Multivitamin 1 tab PO DAILY 12/06/19 01/19/20 (formulary)] Dicyclomine HCl 20 mg PO QID PRN 01/19/20 01/19/20 Fluticasone Propionate [Flovent 2 puff INHALATION RT-BID 01/19/20 01/19/20 Diskus] Ibuprofen [Motrin] 400 mg PO Q6HR PRN 01/19/20 01/19/20 Varenicline [Chantix Continuing 1 mg PO BID 07/24/20 07/24/20 Pack] glipiZIDE [Glucotrol] 10 mg PO DAILY 01/19/20 01/19/20 Previous Rx's Medication Instructions Recorded Calcium Carbonate [Tums] 500 mg PO QID PRN chew 10/27/19 Famotidine [Pepcid] 20 mg PO BID #12 tablet 01/19/20 Allergies Allergy/AdvReac Type Severity Reaction Status Date / Time dicyclomine HCl [From Bentyl] Allergy Unknown Dyspnea Verified 02/20/20 21:58 latex Allergy Unknown Rash/Hives Verified 02/20/20 21:58 diphenhydramine HCl Allergy Anaphylaxis Verified 02/20/20 21:58 [From Benadryl] adhesive AdvReac Unknown Itching Verified 02/20/20 21:58 ciprofloxacin AdvReac Unknown Nausea Verified 02/20/20 21:58 Macrolide Antibiotics AdvReac Unknown Nausea Verified 02/20/20 21:58 sulfamethoxazole AdvReac Unknown Unknown Verified 02/20/20 21:58 [From Bactrim] trimethoprim [From Bactrim] AdvReac Unknown Unknown Verified 02/20/20 21:58 Review of Systems ROS Statement: Those systems with pertinent positive or pertinent negative responses have been documented in the HPI. ROS Other: All systems not noted in ROS Statement are negative. 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 History of Any Multi-Drug Resistant Organisms: None Reported Past Surgical History: Heart Catheterization, Orthopedic Surgery Additional Past Surgical History / Comment(s): Cysts removed, left thumb surgery, colonoscopy 08/24/2019 Past Anesthesia/Blood Transfusion Reactions: Motion Sickness, Postoperative Nausea & Vomiting (PONV) Past Psychological History: Anxiety, Bipolar, Depression, Schizophrenia Smoking Status: Current every day smoker Past Alcohol Use History: None Reported Past Drug Use History: None Reported - Past Family History Brother(s) Family Medical History: Diabetes Mellitus Additional Family Medical History / Comment(s): Patient has 2 brothers. One from complications from diabetes. The second is alive with diabetes. Sister(s) Family Medical History: Cancer Additional Family Medical History / Comment(s): Patient has one sister with breast cancer. Patient does not have any children. Father Family Medical History: Cancer Additional Family Medical History / Comment(s): Father in his 40s or 50s from colon cancer. Mother Family Medical History: Cancer Additional Family Medical History / Comment(s): Mother at age 68 from lung cancer. General Exam - General Exam Comments Initial Comments: Physical Exam GENERAL: Patient is well-developed and well-nourished. Patient is nontoxic and well-hydrated and is in no distress. HENT: Normocephalic, Atraumatic. EYES: PERRL, EOMI PULMONARY: Unlabored respirations. CARDIOVASCULAR: RRR Warm and well perfused extremities ABDOMEN: Non-distended SKIN: No rashes or bruising : Deferred NEUROLOGIC: Alert and oriented Normal speech Normal gait MUSCULOSKELETAL: Moving all extremities with no apparent injury PSYCHIATRIC: No SI/HI Limitations: no limitations Course Vital Signs 02/20/20 02/20/20 21:55 23:48 Temperature 99.0 F Pulse Rate 93 Respiratory 18 Rate Blood Pressure 175/84 133/80 O2 Sat by Pulse 97 Oximetry Medical Decision Making - Medical Decision Making The patient was seen and evaluated, history is obtained from the patient Patient has frequent visits for burning epigastric abdominal pain which usually resolved with GI cocktail Basic labs were obtained results ofsignificant abnormalities urinalysis is unremarkable patient received IV fluids and a GI cocktail. Upon reevaluation he reports he's feeling better and that he will take some Maalox when he gets home. All questions pertaining care were answered return parameters were discussed patient was discharged home in stable condition. - Lab Data Result diagrams: 02/20/20 22:32 02/20/20 22:32 Lab Results 02/20/20 02/20/20 02/20/20 Range/Units 22:07 22:32 22:32 WBC 7.7 (3.8-10.6) k/uL RBC 5.06 (4.30-5.90) m/uL Hgb 14.8 (13.0-17.5) gm/dL Hct 43.6 (39.0-53.0) % MCV 86.3 (80.0-100.0) fL MCH 29.4 (25.0-35.0) pg MCHC 34.0 (31.0-37.0) g/dL RDW 13.7 (11.5-15.5) % Plt Count 223 (150-450) k/uL Neutrophils % 66 % Lymphocytes % 23 % Monocytes % 5 % Eosinophils % 4 % Basophils % 0 % Neutrophils # 5.0 (1.3-7.7) k/uL Lymphocytes # 1.7 (1.0-4.8) k/uL Monocytes # 0.4 (0-1.0) k/uL Eosinophils # 0.3 (0-0.7) k/uL Basophils # 0.0 (0-0.2) k/uL Sodium (137-145) mmol/L Potassium (3.5-5.1) mmol/L Chloride (98-107) mmol/L Carbon Dioxide (22-30) mmol/L Anion Gap mmol/L BUN (9-20) mg/dL Creatinine (0.66-1.25) mg/dL Est GFR (CKD-EPI)AfAm (>60 ml/min/1.73 sqM) Est GFR (CKD-EPI)NonAf (>60 ml/min/1.73 sqM) Glucose (74-99) mg/dL POC Glucose (mg/dL) 104 H (75-99) mg/dL POC Glu Court Bailiff ID [place] Calcium (8.4-10.2) mg/dL Total Bilirubin (0.2-1.3) mg/dL AST (17-59) U/L ALT (4-49) U/L Alkaline Phosphatase (38-126) U/L Total Protein (6.3-8.2) g/dL Albumin (3.5-5.0) g/dL Lipase (23-300) U/L Urine Color Yellow Urine Appearance Clear (Clear) Urine pH 5.5 (5.0-8.0) Ur Specific [place] 1.011 (1.001-1.035) Urine Protein Negative (Negative) Urine Glucose (UA) Negative (Negative) Urine Ketones Negative (Negative) Urine Blood Negative (Negative) Urine Nitrite Negative (Negative) Urine Bilirubin Negative (Negative) Urine Urobilinogen <2.0 (<2.0) mg/dL Ur Leukocyte Esterase Negative (Negative) 02/20/20 Range/Units 22:32 WBC (3.8-10.6) k/uL RBC (4.30-5.90) m/uL Hgb (13.0-17.5) gm/dL Hct (39.0-53.0) % MCV (80.0-100.0) fL MCH (25.0-35.0) pg MCHC (31.0-37.0) g/dL RDW (11.5-15.5) % Plt Count (150-450) k/uL Neutrophils % % Lymphocytes % % Monocytes % % Eosinophils % % Basophils % % Neutrophils # (1.3-7.7) k/uL Lymphocytes # (1.0-4.8) k/uL Monocytes # (0-1.0) k/uL Eosinophils # (0-0.7) k/uL Basophils # (0-0.2) k/uL Sodium 137 (137-145) mmol/L Potassium 3.7 (3.5-5.1) mmol/L Chloride 110 H (98-107) mmol/L Carbon Dioxide 21 L (22-30) mmol/L Anion Gap 6 mmol/L BUN 10 (9-20) mg/dL Creatinine 0.72 (0.66-1.25) mg/dL Est GFR (CKD-EPI)AfAm >90 (>60 ml/min/1.73 sqM) Est GFR (CKD-EPI)NonAf >90 (>60 ml/min/1.73 sqM) Glucose 103 H (74-99) mg/dL POC Glucose (mg/dL) (75-99) mg/dL POC Glu Court Bailiff ID Calcium 9.3 (8.4-10.2) mg/dL Total Bilirubin 0.3 (0.2-1.3) mg/dL AST 45 (17-59) U/L ALT 95 H (4-49) U/L Alkaline Phosphatase 77 (38-126) U/L Total Protein 6.0 L (6.3-8.2) g/dL Albumin 3.9 (3.5-5.0) g/dL Lipase 107 (23-300) U/L Urine Color Urine Appearance (Clear) Urine pH (5.0-8.0) Ur Specific [place] (1.001-1.035) Urine Protein (Negative) Urine Glucose (UA) (Negative) Urine Ketones (Negative) Urine Blood (Negative) Urine Nitrite (Negative) Urine Bilirubin (Negative) Urine Urobilinogen (<2.0) mg/dL Ur Leukocyte Esterase (Negative) Disposition Clinical Impression: Abdominal pain Disposition: HOME SELF-CARE Condition: Stable Additional Instructions: Avoid spicy or greasy meals, eat small meals multiple times a day, drink fluids to stay hydrated, follow up with your regular doctor Return to the er if you feel worse Is patient prescribed a controlled substance at d/c from ED?: No Referrals: Ramya Saul MD [Primary Care Provider] - 1-2 days
[2020-02-20 23:49] VITALS: BP 133/80
== END 2020-02-20 23:42 | disposition home or self-care (01) ==
LOC: EC 21:55
DX: R10.13 Epigastric pain (principal); R30.9 Painful micturition, unspecified; F41.9 Anxiety disorder, unspecified; F31.9 Bipolar disorder, unspecified; F20.9 Schizophrenia, unspecified; F17.200 Nicotine dependence, unspecified, uncomplicated; J44.9 Chronic obstructive pulmonary disease, unspecified; E11.9 Type 2 diabetes mellitus without complications; K21.9 Gastro-esophageal reflux disease without esophagitis; E78.5 Hyperlipidemia, unspecified; I10 Essential (primary) hypertension; M19.90 Unspecified osteoarthritis, unspecified site; G40.909 Epilepsy, unspecified, not intractable, without status epilepticus; G47.33 Obstructive sleep apnea (adult) (pediatric); Z79.51 Long term (current) use of inhaled steroids; Z79.84 Long term (current) use of oral hypoglycemic drugs; Z79.82 Long term (current) use of aspirin; Z79.899 Other long term (current) drug therapy; Z88.1 Allergy status to other antibiotic agents; Z88.2 Allergy status to sulfonamides; Z88.8 Allergy status to other drugs, medicaments and biological substances; Z91.040 Latex allergy status; Z91.048 Other nonmedicinal substance allergy status; Z95.5 Presence of coronary angioplasty implant and graft; Z99.89 Dependence on other enabling machines and devices; Z86.73 Personal history of transient ischemic attack (TIA), and cerebral infarction without residual deficits
CPT/HCPCS: 36415; 80053; 81003; 83690; 85025; 96360; 99284

== ENCOUNTER 2020-02-21 14:08 | Emergency (ER) | payer MEDICARE, OTHER ==
[2020-02-21 14:16] VITALS: TEMP 98.7
--- NOTE | 2020-02-21 14:35 | ED ---
Male Urogenital HPI - General Chief complaint: Urogenital Stated complaint: Revisit Urogenital Time Seen by Provider: 02/21/20 14:18 Source: patient Mode of arrival: ambulatory Limitations: no limitations - History of Present Illness Initial comments: Patient is a 49-year-old male presenting to emergency Department with complaints of having trouble with urination. Patient was here in the ER last night and did have a full workup for multiple complaints including belly pain and dysuria. His urine yesterday was completely normal. Patient states since this morning he has been not been able to go very much. He is having some pressure in the suprapubic area. He states he has had this problem before secondary to an enlarged prostate. He denies any fever, chills, sharp pains. He does admit to some mild nausea but no vomiting or diarrhea. He denies any urethral discharge or sores. He has no further complaints. Upon arrival to the ER his vitals are stable. - Related Data Home Medications Medication Instructions Recorded Confirmed ARIPiprazole [Abilify] 10 mg PO HS 01/19/19 02/21/20 OLANZapine [ZyPREXA] 10 mg PO HS 01/19/19 02/21/20 metFORMIN HCL 1,000 mg PO BID 04/30/19 02/21/20 Loratadine 10 mg PO DAILY 08/22/19 02/21/20 Aspirin EC [Ecotrin Low Dose] 81 mg PO DAILY 10/25/19 02/21/20 Eucerin Cream 1 applic TOPICAL BID 10/25/19 02/21/20 Hydrocortisone Cream 1 applic TOPICAL BID PRN 10/25/19 02/21/20 [Hydrocortisone 1% Cream] Multivitamins, Thera [Multivitamin 1 tab PO DAILY 12/06/19 02/21/20 (formulary)] Fluticasone Propionate [Flovent 2 puff INHALATION RT-BID PRN 01/19/20 02/21/20 Diskus] Ibuprofen [Motrin] 400 mg PO Q6HR PRN 01/19/20 02/21/20 glipiZIDE [Glucotrol] 10 mg PO DAILY 01/19/20 02/21/20 Albuterol Sulfate [Proair Hfa] 2 puff INHALATION RT-Q4H PRN 02/21/20 02/21/20 Clotrimazole Cream [Lotrimin Cream] 1 applic TOPICAL BID PRN 02/21/20 02/21/20 Docusate [Colace] 100 mg PO DAILY PRN 02/21/20 02/21/20 Ergocalciferol (Vitamin D2) 50,000 unit PO Q7D 02/21/20 02/21/20 [Drisdol] Nystatin 100,000 Unit/ml Susp 4 ml PO QID PRN 02/21/20 02/21/20 [Mycostatin Oral Susp] Nystatin 100,000Unit/gm Cream 1 applic TOPICAL BID PRN 02/21/20 02/21/20 [Mycostatin Cream] Omeprazole [PriLOSEC] 20 mg PO DAILY 02/21/20 02/21/20 Ondansetron [Zofran] 4 mg PO TID PRN 02/21/20 02/21/20 Previous Rx's Medication Instructions Recorded Calcium Carbonate [Tums] 500 mg PO QID PRN chew 10/27/19 Allergies Allergy/AdvReac Type Severity Reaction Status Date / Time dicyclomine HCl [From Bentyl] Allergy Unknown Dyspnea Verified 02/21/20 14:52 latex Allergy Unknown Rash/Hives Verified 02/21/20 14:52 diphenhydramine HCl Allergy Anaphylaxis Verified 02/21/20 14:52 [From Benadryl] adhesive AdvReac Unknown Itching Verified 02/21/20 14:52 ciprofloxacin AdvReac Unknown Nausea Verified 02/21/20 14:52 Macrolide Antibiotics AdvReac Unknown Nausea Verified 02/21/20 14:52 sulfamethoxazole AdvReac Unknown Unknown Verified 02/21/20 14:52 [From Bactrim] trimethoprim [From Bactrim] AdvReac Unknown Unknown Verified 02/21/20 14:52 Review of Systems ROS Statement: Those systems with pertinent positive or pertinent negative responses have been documented in the HPI. ROS Other: All systems not noted in ROS Statement are negative. 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 History of Any Multi-Drug Resistant Organisms: None Reported Past Surgical History: Heart Catheterization, Orthopedic Surgery Additional Past Surgical History / Comment(s): Cysts removed, left thumb surgery, colonoscopy 08/24/2019 Past Anesthesia/Blood Transfusion Reactions: Motion Sickness, Postoperative Nausea & Vomiting (PONV) Past Psychological History: Anxiety, Bipolar, Depression, Schizophrenia Smoking Status: Current every day smoker Past Alcohol Use History: None Reported Past Drug Use History: None Reported - Past Family History Brother(s) Family Medical History: Diabetes Mellitus Additional Family Medical History / Comment(s): Patient has 2 brothers. One from complications from diabetes. The second is alive with diabetes. Sister(s) Family Medical History: Cancer Additional Family Medical History / Comment(s): Patient has one sister with breast cancer. Patient does not have any children. Father Family Medical History: Cancer Additional Family Medical History / Comment(s): Father in his 40s or 50s from colon cancer. Mother Family Medical History: Cancer Additional Family Medical History / Comment(s): Mother at age 68 from lung cancer. General Exam - General Exam Comments Initial Comments: GENERAL: Patient is well-developed and well-nourished. Patient is nontoxic and in no acute distress. HEAD: Atraumatic, normocephalic. EYES: Pupils equal round and reactive to light, extraocular movements intact, sclera anicteric, conjunctiva are normal. Eyelids were unremarkable. ENT: TMs normal, nares patent, oropharynx clear without exudates. Moist mucous membranes. NECK: Normal range of motion, supple without lymphadenopathy or JVD. LUNGS: Unlabored respirations. Breath sounds clear to auscultation bilaterally and equal. No wheezes rales or rhonchi. HEART: Regular rate and rhythm without murmurs, rubs or gallops. ABDOMEN: Pressure feeling the suprapubic area, no specific areas of pain. Soft, normoactive bowel sounds. No guarding, no rebound. No masses appreciated. : Deferred MUSCULOSKELETAL: Normal extremities with adequate strength and normal range of motion, no pitting or edema. No clubbing or cyanosis. NEUROLOGICAL: Patient is alert and oriented x 3. Motor and sensory are also intact. Normal speech, normal gait. PSYCH: Normal mood, normal affect. SKIN: Warm, Dry, normal turgor, no rashes or lesions noted. Limitations: no limitations Course Vital Signs 02/21/20 02/21/20 14:14 15:33 Temperature 98.7 F Pulse Rate 81 87 Respiratory 18 16 Rate Blood Pressure 126/92 147/102 O2 Sat by Pulse 97 97 Oximetry Medical Decision Making - Medical Decision Making Patient is a 49-year-old male, frequent to the ER, presenting for difficulty with urination. Patient was evaluated in the ER last night for similar complaints including belly pain. He did have a full workup including labs and urine which showed no acute abnormalities. Patient states since this morning he has not been able to urinate and when he tries he has pain. Denies any fever or chills. His vital signs are stable. Urine shows no evidence of infection. Bladder scan did reveal 300 mL, patient was able to go approximately 50. He continues to have pressure. I discussed starting a Hernandez catheter secondary to retention, patient agreed. Patient will be discharged home with catheter and will follow-up with urology. He is in agreement with this plan of care. Return parameters were discussed with the patient he verbalizes understanding. - Lab Data Lab Results 02/21/20 Range/Units 14:43 Urine Color Colorless Urine Appearance Clear (Clear) Urine pH 6.5 (5.0-8.0) Ur Specific [place] 1.003 (1.001-1.035) Urine Protein Negative (Negative) Urine Glucose (UA) Negative (Negative) Urine Ketones Negative (Negative) Urine Blood Negative (Negative) Urine Nitrite Negative (Negative) Urine Bilirubin Negative (Negative) Urine Urobilinogen <2.0 (<2.0) mg/dL Ur Leukocyte Esterase Negative (Negative) Disposition Clinical Impression: Urinary retention Disposition: HOME SELF-CARE Condition: Stable Instructions (If sedation given, give patient instructions): Urinary Retention in Men (ED) Additional Instructions: Please return to the Emergency Department if symptoms worsen or any other concerns. Follow-up with urology as discussed. Is patient prescribed a controlled substance at d/c from ED?: No Referrals: Ramya Saul MD [Primary Care Provider] - 1-2 days Ethan Horan MD [STAFF PHYSICIAN] - 1-2 days
[2020-02-21 15:01] LABS: Appearance,Urine Clear (Clear); Bilirubin,Urine Negative (Negative); Blood,Urine Negative (Negative); Color,Urine Colorless; Glucose,Urine (UA) Negative (Negative); Ketones,Urine Negative (Negative); Leukocyte Esterase,Urine Negative (Negative); Nitrite,Urine Negative (Negative); PH, Urine 6.5 (5.0-8.0); Protein,Urine Negative (Negative); Specific Gravity,Urine 1.003 (1.001-1.035); Urobilinogen,Urine <2.0 mg/dL (<2.0)
[2020-02-21 15:38] VITALS: BP 147/102; PULSE 87; RESP 16
== END 2020-02-21 15:39 | disposition home or self-care (01) ==
LOC: EC 14:08
DX: R33.9 Retention of urine, unspecified (principal); F41.9 Anxiety disorder, unspecified; F31.9 Bipolar disorder, unspecified; F20.9 Schizophrenia, unspecified; K21.9 Gastro-esophageal reflux disease without esophagitis; J44.9 Chronic obstructive pulmonary disease, unspecified; F17.200 Nicotine dependence, unspecified, uncomplicated; M19.90 Unspecified osteoarthritis, unspecified site; I20.9 Angina pectoris, unspecified; E11.9 Type 2 diabetes mellitus without complications; G47.33 Obstructive sleep apnea (adult) (pediatric); I10 Essential (primary) hypertension; Z79.82 Long term (current) use of aspirin; Z79.84 Long term (current) use of oral hypoglycemic drugs; Z79.899 Other long term (current) drug therapy; Z88.2 Allergy status to sulfonamides; Z88.1 Allergy status to other antibiotic agents; Z91.040 Latex allergy status; Z91.048 Other nonmedicinal substance allergy status; Z86.73 Personal history of transient ischemic attack (TIA), and cerebral infarction without residual deficits; Z99.89 Dependence on other enabling machines and devices
CPT/HCPCS: 51702; 51798; 81003; 99284

== ENCOUNTER 2020-02-23 14:28 | Emergency (ER) | payer MEDICARE, OTHER ==
[2020-02-23 14:58] VITALS: RESP 18
[2020-02-23] MEDS ORDERED: oxyCODONE-APAP 7.5-325MG 1 EACH TAB PO STA (15:05)
--- NOTE | 2020-02-23 15:09 | ED ---
General Adult HPI - General Chief complaint: Abdominal Pain Stated complaint: Abd Pain/Painful Urination Time Seen by Provider: 02/23/20 14:49 Source: patient Mode of arrival: ambulatory Limitations: no limitations - History of Present Illness Initial comments: Dictation was produced using [employer] dictation software. please excuse any grammatical, word or spelling errors. This patient was cared for during a federal and state declared state of em ergency secondary to Covid 19 Chief Complaint: 49-year-old male presents with chest pain and abdominal pain. History of Present Illness:49-year-old male he is here in emergency department often. Patient was here 2 days ago and the day before that. Patient states she's been having chest pain and abdominal pain. Patient reports that he has exertional sharp stabbing chest pain. Denies any radiation of symptoms to his shoulders extremities jaw or back. Patient states it is worse with deep inspiration. She does report some mild shortness of breath with exertion. Patient also has secondary complaint of suprapubic abdominal pain. Patient allegedly has a history of prostate enlargement. 2 days ago patient had Hernandez catheter placed. Patient states he has poor appetite and nausea. He has no vomiting. No diarrhea. Patient denies any constitutional symptoms. He noted that there was some bleeding in his Hernandez catheter urine reservoir. The ROS documented in this emergency department record has been reviewed and confirmed by me. Those systems with pertinent positive or negative responses have been documented in the HPI. All other systems are other negative and/or noncontributory. PHYSICAL EXAM: General Impression: Alert and oriented x3, not in acute distress HEENT: Normocephalic atraumatic, extra-ocular movements intact, pupils equal and reactive to light bilaterally, mucous membranes moist. Cardiovascular: Heart regular rate and rhythm Chest: Able to complete full sentences, no retractions, no tachypnea Abdomen: abdomen soft, non-tender, non-distended, no organomegaly Musculoskeletal: Pulses present and equal in all extremities, no peripheral edema Motor: no focal deficits noted Neurological: CN II-XII grossly intact, no focal motor or sensory deficits noted Skin: Intact with no visualized rashes Psych: Normal affect and mood : No penile erythema. Hernandez catheter in good position. Urine and Hernandez reservoir has bloody tinge ED course: Year old male with chest pain and abdominal pain. Patient is a frequent patron to the emergency department. Signs upon arrival are within acceptable limits. Patient's chest pain is atypical with typical features. Chart review was performed. Patient had cardiac catheterization October 2017to be normal and no evidence of disease. He was value by cardiology on August of this year. Patient has any lower extremity symptoms. Vital signs are stable. He has no risk factors for pulmonary embolus. Denies any history of PE. Laboratory evaluation obtained. CBC unremarkable. Coag panel is negative. Metabolic panel shows no acute processes. First set of troponin is negative. Urinalysis shows 7 white blood cells and 9 red blood cells. At this point patient has indwelling Hernandez catheter. It's unclear whether this is from Hernandez bag reservoir contamination versus urinary tract infection. We will send off urine for culture.Bladder scan is performed showing 30-50. Patient given an aspirin. Second troponin is negative. Patient discharged presents to follow-up with his primary care physician. EKG interpretation: Ventricular rate 70, normal sinus rhythm,. 120, QRS 90, QTc 442. No OR prolongation, no QTC prolongation, no ST or T-wave changes noted. EKG compared to 01/19/2020 showing no changes. Overall, this EKG is unremarkable - Related Data Home Medications Medication Instructions Recorded Confirmed ARIPiprazole [Abilify] 10 mg PO HS 01/19/19 02/21/20 OLANZapine [ZyPREXA] 10 mg PO HS 01/19/19 02/21/20 metFORMIN HCL 1,000 mg PO BID 04/30/19 02/21/20 Loratadine 10 mg PO DAILY 08/22/19 02/21/20 Aspirin EC [Ecotrin Low Dose] 81 mg PO DAILY 10/25/19 02/21/20 Eucerin Cream 1 applic TOPICAL BID 10/25/19 02/21/20 Hydrocortisone Cream 1 applic TOPICAL BID PRN 10/25/19 02/21/20 [Hydrocortisone 1% Cream] Multivitamins, Thera [Multivitamin 1 tab PO DAILY 12/06/19 02/21/20 (formulary)] Fluticasone Propionate [Flovent 2 puff INHALATION RT-BID PRN 01/19/20 02/21/20 Diskus] Ibuprofen [Motrin] 400 mg PO Q6HR PRN 01/19/20 02/21/20 glipiZIDE [Glucotrol] 10 mg PO DAILY 01/19/20 02/21/20 Albuterol Sulfate [Proair Hfa] 2 puff INHALATION RT-Q4H PRN 02/21/20 02/21/20 Clotrimazole Cream [Lotrimin Cream] 1 applic TOPICAL BID PRN 02/21/20 02/21/20 Docusate [Colace] 100 mg PO DAILY PRN 02/21/20 02/21/20 Ergocalciferol (Vitamin D2) 50,000 unit PO Q7D 02/21/20 02/21/20 [Drisdol] Nystatin 100,000 Unit/ml Susp 4 ml PO QID PRN 02/21/20 02/21/20 [Mycostatin Oral Susp] Nystatin 100,000Unit/gm Cream 1 applic TOPICAL BID PRN 02/21/20 02/21/20 [Mycostatin Cream] Omeprazole [PriLOSEC] 20 mg PO DAILY 02/21/20 02/21/20 Ondansetron [Zofran] 4 mg PO TID PRN 02/21/20 02/21/20 Previous Rx's Medication Instructions Recorded Calcium Carbonate [Tums] 500 mg PO QID PRN chew 10/27/19 Allergies Allergy/AdvReac Type Severity Reaction Status Date / Time dicyclomine HCl [From Bentyl] Allergy Unknown Dyspnea Verified 02/21/20 14:52 latex Allergy Unknown Rash/Hives Verified 02/21/20 14:52 diphenhydramine HCl Allergy Anaphylaxis Verified 02/21/20 14:52 [From Benadryl] adhesive AdvReac Unknown Itching Verified 02/21/20 14:52 ciprofloxacin AdvReac Unknown Nausea Verified 02/21/20 14:52 Macrolide Antibiotics AdvReac Unknown Nausea Verified 02/21/20 14:52 sulfamethoxazole AdvReac Unknown Unknown Verified 02/21/20 14:52 [From Bactrim] trimethoprim [From Bactrim] AdvReac Unknown Unknown Verified 02/21/20 14:52 Review of Systems ROS Statement: Those systems with pertinent positive or pertinent negative responses have been documented in the HPI. ROS Other: All systems not noted in ROS Statement are negative. 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 History of Any Multi-Drug Resistant Organisms: None Reported Past Surgical History: Heart Catheterization, Orthopedic Surgery Additional Past Surgical History / Comment(s): Cysts removed, left thumb surgery, colonoscopy 08/24/2019 Past Anesthesia/Blood Transfusion Reactions: Motion Sickness, Postoperative Nausea & Vomiting (PONV) Past Psychological History: Anxiety, Bipolar, Depression, Schizophrenia Smoking Status: Current every day smoker Past Alcohol Use History: None Reported Past Drug Use History: None Reported - Past Family History Brother(s) Family Medical History: Diabetes Mellitus Additional Family Medical History / Comment(s): Patient has 2 brothers. One from complications from diabetes. The second is alive with diabetes. Sister(s) Family Medical History: Cancer Additional Family Medical History / Comment(s): Patient has one sister with breast cancer. Patient does not have any children. Father Family Medical History: Cancer Additional Family Medical History / Comment(s): Father in his 40s or 50s from colon cancer. Mother Family Medical History: Cancer Additional Family Medical History / Comment(s): Mother at age 68 from lung cancer. General Exam Limitations: no limitations Course Vital Signs 02/23/20 14:34 Temperature 98.9 F Pulse Rate 82 Respiratory 18 Rate Blood Pressure 136/83 O2 Sat by Pulse 98 Oximetry Medical Decision Making - Lab Data Result diagrams: 02/23/20 15:10 02/23/20 15:10 Lab Results 02/23/20 02/23/20 02/23/20 Range/Units 15:10 15:10 15:10 WBC 7.7 (3.8-10.6) k/uL RBC 5.30 (4.30-5.90) m/uL Hgb 15.5 (13.0-17.5) gm/dL Hct 46.3 (39.0-53.0) % MCV 87.3 (80.0-100.0) fL MCH 29.3 (25.0-35.0) pg MCHC 33.6 (31.0-37.0) g/dL RDW 13.9 (11.5-15.5) % Plt Count 235 (150-450) k/uL Neutrophils % 70 % Lymphocytes % 19 % Monocytes % 5 % Eosinophils % 4 % Basophils % 0 % Neutrophils # 5.4 (1.3-7.7) k/uL Lymphocytes # 1.4 (1.0-4.8) k/uL Monocytes # 0.4 (0-1.0) k/uL Eosinophils # 0.3 (0-0.7) k/uL Basophils # 0.0 (0-0.2) k/uL PT 9.4 (9.0-12.0) sec INR 0.9 (<1.2) APTT 23.0 (22.0-30.0) sec Sodium 138 (137-145) mmol/L Potassium 4.0 (3.5-5.1) mmol/L Chloride 112 H (98-107) mmol/L Carbon Dioxide 20 L (22-30) mmol/L Anion Gap 6 mmol/L BUN 12 (9-20) mg/dL Creatinine 0.66 (0.66-1.25) mg/dL Est GFR (CKD-EPI)AfAm >90 (>60 ml/min/1.73 sqM) Est GFR (CKD-EPI)NonAf >90 (>60 ml/min/1.73 sqM) Glucose 141 H (74-99) mg/dL Calcium 9.4 (8.4-10.2) mg/dL Troponin I (0.000-0.034) ng/mL Lipase 97 (23-300) U/L Urine Color Urine Appearance (Clear) Urine pH (5.0-8.0) Ur Specific Rule (1.001-1.035) Urine Protein (Negative) Urine Glucose (UA) (Negative) Urine Ketones (Negative) Urine Blood (Negative) Urine Nitrite (Negative) Urine Bilirubin (Negative) Urine Urobilinogen (<2.0) mg/dL Ur Leukocyte Esterase (Negative) Urine RBC (0-5) /hpf Urine WBC (0-5) /hpf Ur Squamous Epith Cells (0-4) /hpf Calcium Oxalate Crystal (None) /hpf Amorphous Sediment (None) /hpf Urine Bacteria (None) /hpf Urine Mucus (None) /hpf 02/23/20 02/23/20 02/23/20 Range/Units 15:10 15:15 18:08 WBC (3.8-10.6) k/uL RBC (4.30-5.90) m/uL Hgb (13.0-17.5) gm/dL Hct (39.0-53.0) % MCV (80.0-100.0) fL MCH (25.0-35.0) pg MCHC (31.0-37.0) g/dL RDW (11.5-15.5) % Plt Count (150-450) k/uL Neutrophils % % Lymphocytes % % Monocytes % % Eosinophils % % Basophils % % Neutrophils # (1.3-7.7) k/uL Lymphocytes # (1.0-4.8) k/uL Monocytes # (0-1.0) k/uL Eosinophils # (0-0.7) k/uL Basophils # (0-0.2) k/uL PT (9.0-12.0) sec INR (<1.2) APTT (22.0-30.0) sec Sodium (137-145) mmol/L Potassium (3.5-5.1) mmol/L Chloride (98-107) mmol/L Carbon Dioxide (22-30) mmol/L Anion Gap mmol/L BUN (9-20) mg/dL Creatinine (0.66-1.25) mg/dL Est GFR (CKD-EPI)AfAm (>60 ml/min/1.73 sqM) Est GFR (CKD-EPI)NonAf (>60 ml/min/1.73 sqM) Glucose (74-99) mg/dL Calcium (8.4-10.2) mg/dL Troponin I <0.012 <0.012 (0.000-0.034) ng/mL Lipase (23-300) U/L Urine Color Yellow Urine Appearance Clear (Clear) Urine pH 5.5 (5.0-8.0) Ur Specific Rule 1.007 (1.001-1.035) Urine Protein 1+ H (Negative) Urine Glucose (UA) Negative (Negative) Urine Ketones Negative (Negative) Urine Blood Large H (Negative) Urine Nitrite Negative (Negative) Urine Bilirubin Negative (Negative) Urine Urobilinogen <2.0 (<2.0) mg/dL Ur Leukocyte Esterase Small H (Negative) Urine RBC 9 H (0-5) /hpf Urine WBC 7 H (0-5) /hpf Ur Squamous Epith Cells <1 (0-4) /hpf Calcium Oxalate Crystal Rare H (None) /hpf Amorphous Sediment Rare H (None) /hpf Urine Bacteria Rare H (None) /hpf Urine Mucus Rare H (None) /hpf Disposition Clinical Impression: Chest pain, Pelvic pain Disposition: HOME SELF-CARE Condition: Good Instructions (If sedation given, give patient instructions): Chest Pain (ED) Is patient prescribed a controlled substance at d/c from ED?: No Referrals: Ramya Saul MD [Primary Care Provider] - 1-2 days Time of Disposition: 18:49
[2020-02-23 15:22] LABS: Basophils % (A) 0 %; Eosinophils # (A) 0.3 k/uL (0-0.7); Eosinophils % (A) 4 %; HCT 46.3 % (39.0-53.0); HGB 15.5 gm/dL (13.0-17.5); Lymphocytes # (A) 1.4 k/uL (1.0-4.8); Lymphocytes % (A) 19 %; MCH 29.3 pg (25.0-35.0); MCHC 33.6 g/dL (31.0-37.0); MCV 87.3 fL (80.0-100.0); Mean Platelet Volume 7.2; Monocytes # (A) 0.4 k/uL (0-1.0); Monocytes % (A) 5 %; Neutrophils # (A) 5.4 k/uL (1.3-7.7); Neutrophils % (A) 70 %; Platelet Count 235 k/uL (150-450); RDW 13.9 % (11.5-15.5); WBC 7.7 k/uL (3.8-10.6)
[2020-02-23 15:30] LABS: INR 0.9 (<1.2); Prothrombin Time 9.4 sec (9.0-12.0)
[2020-02-23 15:39] LABS: African American GFR (CKD) >90 (>60 ml/min/1.73 sqM); Anion Gap 6 mmol/L; Blood Urea Nitrogen 12 mg/dL (9-20); Calcium 9.4 mg/dL (8.4-10.2); Carbon Dioxide 20 mmol/L (22-30); Chloride 112 mmol/L (98-107); Glucose 141 mg/dL (74-99); Non-African American GFR(CKD) >90 (>60 ml/min/1.73 sqM); Sodium 138 mmol/L (137-145)
[2020-02-23 15:41] LABS: Amorphous Sediment,Urine Rare /hpf; Appearance,Urine Clear (Clear); Bacteria,Urine Rare /hpf; Bilirubin,Urine Negative (Negative); Blood,Urine Large (Negative); Calcium Oxalate Crystals,Urine Rare /hpf; Color,Urine Yellow; Glucose,Urine (UA) Negative (Negative); Ketones,Urine Negative (Negative); Leukocyte Esterase,Urine Small (Negative); Mucus,Urine Rare /hpf; Nitrite,Urine Negative (Negative); PH, Urine 5.5 (5.0-8.0); Protein,Urine 1+ (Negative); RBC,Urine 9 /hpf (0-5); Specific Gravity,Urine 1.007 (1.001-1.035); Squamous Epithelial Cell,Urine <1 /hpf (0-4); Urobilinogen,Urine <2.0 mg/dL (<2.0); WBC,Urine 7 /hpf (0-5)
--- NOTE | 2020-02-23 16:51 | XR ---
EXAMINATION TYPE: XR chest 1V portable DATE OF EXAM: 02/23/2020 COMPARISON: 01/18/2020 INDICATION: Chest pain TECHNIQUE: Single frontal view of the chest is obtained. FINDINGS: The heart size is somewhat prominent. The pulmonary vasculature is normal. The lungs are clear. IMPRESSION: 1. Mild cardiomegaly. 2. No acute pulmonary process.
[2020-02-23] MEDS ORDERED: ASPIRIN 81 MG PO STA (18:41)
[2020-02-23 19:16] VITALS: BP 135/87; PULSE 65; TEMP 98.1
== END 2020-02-23 19:20 | disposition home or self-care (01) ==
LOC: EC 14:28
DX: R07.89 Other chest pain (principal); R10.2 Pelvic and perineal pain; F17.200 Nicotine dependence, unspecified, uncomplicated; F41.9 Anxiety disorder, unspecified; F31.9 Bipolar disorder, unspecified; F20.9 Schizophrenia, unspecified; J44.9 Chronic obstructive pulmonary disease, unspecified; E11.9 Type 2 diabetes mellitus without complications; K21.9 Gastro-esophageal reflux disease without esophagitis; E78.5 Hyperlipidemia, unspecified; I10 Essential (primary) hypertension; M19.90 Unspecified osteoarthritis, unspecified site; G40.909 Epilepsy, unspecified, not intractable, without status epilepticus; G47.33 Obstructive sleep apnea (adult) (pediatric); Z79.82 Long term (current) use of aspirin; Z79.84 Long term (current) use of oral hypoglycemic drugs; Z79.899 Other long term (current) drug therapy; Z99.89 Dependence on other enabling machines and devices; Z88.1 Allergy status to other antibiotic agents; Z88.2 Allergy status to sulfonamides; Z88.8 Allergy status to other drugs, medicaments and biological substances; Z86.73 Personal history of transient ischemic attack (TIA), and cerebral infarction without residual deficits; Z95.5 Presence of coronary angioplasty implant and graft; Z91.040 Latex allergy status; Z91.048 Other nonmedicinal substance allergy status
CPT/HCPCS: 36415; 71045; 80048; 81001; 83690; 84484; 85025; 85610; 85730; 93005; 99285

== ENCOUNTER 2020-03-04 08:16 | Emergency (ER) | payer MEDICARE, OTHER ==
[2020-03-04] MEDS ORDERED: KETOROLAC 15 MG/ML 1 ML VIAL IM STA (08:26)
[2020-03-04 08:27] VITALS: BP 134/82; PULSE 86; RESP 18; TEMP 98
--- NOTE | 2020-03-04 08:31 | ED ---
General Adult HPI - General Chief complaint: Neck Pain/Injury Stated complaint: shoulder pain Time Seen by Provider: 03/04/20 08:22 Source: patient, RN notes reviewed Mode of arrival: ambulatory Limitations: no limitations - History of Present Illness Initial comments: Patient is a pleasant 49-year-old male presenting to the emergency Department with right shoulder pain. Patient states he sleeps on a hard bed he believes that is causing his symptoms. This is a fairly chronic condition for him. Patient has had previous x-rays. Patient requests a sling. Patient refuses repeat x-rays. Discomfort does increase with movement of the right shoulder. No arm weakness. No loss of sensation. No trauma to the area. - Related Data Home Medications Medication Instructions Recorded Confirmed ARIPiprazole [Abilify] 10 mg PO HS 01/19/19 02/21/20 OLANZapine [ZyPREXA] 10 mg PO HS 01/19/19 02/21/20 metFORMIN HCL 1,000 mg PO BID 04/30/19 02/21/20 Loratadine 10 mg PO DAILY 08/22/19 02/21/20 Aspirin EC [Ecotrin Low Dose] 81 mg PO DAILY 10/25/19 02/21/20 Eucerin Cream 1 applic TOPICAL BID 10/25/19 02/21/20 Hydrocortisone Cream 1 applic TOPICAL BID PRN 10/25/19 02/21/20 [Hydrocortisone 1% Cream] Multivitamins, Thera [Multivitamin 1 tab PO DAILY 12/06/19 02/21/20 (formulary)] Fluticasone Propionate [Flovent 2 puff INHALATION RT-BID PRN 01/19/20 02/21/20 Diskus] Ibuprofen [Motrin] 400 mg PO Q6HR PRN 01/19/20 02/21/20 glipiZIDE [Glucotrol] 10 mg PO DAILY 01/19/20 02/21/20 Albuterol Sulfate [Proair Hfa] 2 puff INHALATION RT-Q4H PRN 02/21/20 02/21/20 Clotrimazole Cream [Lotrimin Cream] 1 applic TOPICAL BID PRN 02/21/20 02/21/20 Docusate [Colace] 100 mg PO DAILY PRN 02/21/20 02/21/20 Ergocalciferol (Vitamin D2) 50,000 unit PO Q7D 02/21/20 02/21/20 [Drisdol] Nystatin 100,000 Unit/ml Susp 4 ml PO QID PRN 02/21/20 02/21/20 [Mycostatin Oral Susp] Nystatin 100,000Unit/gm Cream 1 applic TOPICAL BID PRN 02/21/20 02/21/20 [Mycostatin Cream] Omeprazole [PriLOSEC] 20 mg PO DAILY 02/21/20 02/21/20 Ondansetron [Zofran] 4 mg PO TID PRN 02/21/20 02/21/20 Previous Rx's Medication Instructions Recorded Calcium Carbonate [Tums] 500 mg PO QID PRN chew 10/27/19 Allergies Allergy/AdvReac Type Severity Reaction Status Date / Time dicyclomine HCl [From Bentyl] Allergy Unknown Dyspnea Verified 02/25/20 12:07 latex Allergy Unknown Rash/Hives Verified 02/25/20 12:07 diphenhydramine HCl Allergy Anaphylaxis Verified 02/25/20 12:07 [From Benadryl] adhesive AdvReac Unknown Itching Verified 02/25/20 12:07 ciprofloxacin AdvReac Unknown Nausea Verified 02/25/20 12:07 Macrolide Antibiotics AdvReac Unknown Nausea Verified 02/25/20 12:07 sulfamethoxazole AdvReac Unknown Unknown Verified 02/25/20 12:07 [From Bactrim] trimethoprim [From Bactrim] AdvReac Unknown Unknown Verified 02/25/20 12:07 Review of Systems ROS Statement: Those systems with pertinent positive or pertinent negative responses have been documented in the HPI. ROS Other: All systems not noted in ROS Statement are negative. Constitutional: Denies: fever Eyes: Denies: eye pain ENT: Denies: ear pain Respiratory: Denies: cough, dyspnea Cardiovascular: Denies: chest pain Endocrine: Denies: fatigue Gastrointestinal: Denies: abdominal pain Genitourinary: Denies: dysuria Musculoskeletal: Denies: back pain Skin: Denies: rash Neurological: Denies: weakness, paresthesias Past Medical History Past Medical History: Asthma, Chest Pain / Angina, COPD, CVA/TIA, Diabetes Mellitus, GERD/Reflux, Hearing Disorder / Deafness, Hyperlipidemia, Hypertension, Liver Disease, Osteoarthritis (OA), Pneumonia, Seizure Disorder, Sleep Apnea/CPAP/BIPAP Additional Past Medical History / Comment(s): states CVA at 35 yrs old with left sided weakness- uses cane., states seizure at 35 yrs old., DDD- back & neck pain., carpal tunnel syndrome., Cyst on kidney, uses cpap., states having abdominal pain with diarrhea and nausea ., Lives with his sister and has [employer] public guardian. History of Any Multi-Drug Resistant Organisms: None Reported Past Surgical History: Heart Catheterization, Orthopedic Surgery Additional Past Surgical History / Comment(s): Cysts removed, left thumb surgery, colonoscopy 08/24/2019 Past Anesthesia/Blood Transfusion Reactions: Motion Sickness, Postoperative Nausea & Vomiting (PONV) Past Psychological History: Anxiety, Bipolar, Depression, Schizophrenia Smoking Status: Current every day smoker Past Alcohol Use History: None Reported, Occasional Past Drug Use History: None Reported - Past Family History Brother(s) Family Medical History: Diabetes Mellitus Additional Family Medical History / Comment(s): Patient has 2 brothers. One from complications from diabetes. The second is alive with diabetes. Sister(s) Family Medical History: Cancer Additional Family Medical History / Comment(s): Patient has one sister with breast cancer. Patient does not have any children. Father Family Medical History: Cancer Additional Family Medical History / Comment(s): Father in his 40s or 50s from colon cancer. Mother Family Medical History: Cancer Additional Family Medical History / Comment(s): Mother at age 68 from lung cancer. General Exam Limitations: no limitations General appearance: alert, in no apparent distress Head exam: Present: normocephalic Eye exam: Present: normal appearance Neck exam: Present: normal inspection. Absent: tenderness Respiratory exam: Present: normal lung sounds bilaterally Cardiovascular Exam: Present: regular rate, normal rhythm Expanded Peripheral pulses: 2+: Radial (R) GI/Abdominal exam: Present: soft. Absent: tenderness Extremities exam: Present: full ROM, tenderness (Mild tenderness right anterior/lateral shoulder). Absent: joint swelling Back exam: Present: normal inspection Neurological exam: Present: alert Expanded Sensory exam: Upper Extremity Light Touch: Normal Motor strength exam: RUE: 5, LUE: 5 Psychiatric exam: Present: normal affect, normal mood Skin exam: Present: normal color Course Vital Signs 03/04/20 08:17 Temperature 98.0 F Pulse Rate 86 Respiratory 18 Rate Blood Pressure 134/82 O2 Sat by Pulse 98 Oximetry Disposition Clinical Impression: Arthralgia of shoulder region, right Disposition: HOME SELF-CARE Condition: Stable Instructions (If sedation given, give patient instructions): Arthralgia (ED), Shoulder Sprain (ED) Additional Instructions: Continue Motrin as needed. If Motrin use becomes daily will benefit from switching to Tylenol. Please follow-up with primary care physician in the begin arnulfo of the week. Return for increased pain, weakness, fever, swelling, worsening or changing symptoms or other concerns. Only use sling for the next couple of days. After that he will need to get your arm out of the sling and continue to move around. Ice to affected area. Is patient prescribed a controlled substance at d/c from ED?: No Referrals: Ramya Saul MD [Primary Care Provider] - 1-2 days Time of Disposition: 08:30
== END 2020-03-04 08:31 | disposition home or self-care (01) ==
LOC: EC 08:16
DX: M25.511 Pain in right shoulder (principal); J44.9 Chronic obstructive pulmonary disease, unspecified; E11.9 Type 2 diabetes mellitus without complications; K21.9 Gastro-esophageal reflux disease without esophagitis; E78.5 Hyperlipidemia, unspecified; I10 Essential (primary) hypertension; M19.90 Unspecified osteoarthritis, unspecified site; G40.909 Epilepsy, unspecified, not intractable, without status epilepticus; G47.30 Sleep apnea, unspecified; Z99.89 Dependence on other enabling machines and devices; I69.354 Hemiplegia and hemiparesis following cerebral infarction affecting left non-dominant side; Z79.82 Long term (current) use of aspirin; Z79.899 Other long term (current) drug therapy; Z79.51 Long term (current) use of inhaled steroids; Z79.84 Long term (current) use of oral hypoglycemic drugs; F41.9 Anxiety disorder, unspecified; F31.9 Bipolar disorder, unspecified; F20.9 Schizophrenia, unspecified; Z95.5 Presence of coronary angioplasty implant and graft; Z98.890 Other specified postprocedural states
CPT/HCPCS: 96372; 99283; J1885

== ENCOUNTER 2020-03-07 13:36 | Emergency (ER) | payer MEDICARE, OTHER ==
[2020-03-07 13:43] VITALS: BP 142/92; PULSE 83; RESP 18; TEMP 98.1
[2020-03-07] MEDS ORDERED: KETOROLAC 15 MG/ML 1 ML VIAL IM STA (13:49)
--- NOTE | 2020-03-07 13:51 | ED ---
General Adult HPI - General Chief complaint: Chest Pain Stated complaint: Chest Pain Time Seen by Provider: 03/07/20 13:40 Source: patient, RN notes reviewed, old records reviewed Mode of arrival: wheelchair Limitations: no limitations - History of Present Illness Initial comments: This is a 49-year-old male who presents emergency department stating since last night he's been having short episodes of sharp chest pain that lasted one or 2 seconds. Patient states he also is worried because his sugar was 81. Patient states he has been taking some Tylenol for pain occasionally but the chest pain keep coming intermittently so he decided to come the emergency department. Patient denies any shortness of breath or difficulty breathing. Patient denies any fever chills or cough. Patient denies abdominal pain patient denies nausea vomiting diarrhea. Patient denies any diaphoresis. - Related Data Home Medications Medication Instructions Recorded Confirmed ARIPiprazole [Abilify] 10 mg PO HS 01/19/19 02/21/20 OLANZapine [ZyPREXA] 10 mg PO HS 01/19/19 02/21/20 metFORMIN HCL 1,000 mg PO BID 04/30/19 02/21/20 Loratadine 10 mg PO DAILY 08/22/19 02/21/20 Aspirin EC [Ecotrin Low Dose] 81 mg PO DAILY 10/25/19 02/21/20 Eucerin Cream 1 applic TOPICAL BID 10/25/19 02/21/20 Hydrocortisone Cream 1 applic TOPICAL BID PRN 10/25/19 02/21/20 [Hydrocortisone 1% Cream] Multivitamins, Thera [Multivitamin 1 tab PO DAILY 12/06/19 02/21/20 (formulary)] Fluticasone Propionate [Flovent 2 puff INHALATION RT-BID PRN 01/19/20 02/21/20 Diskus] Ibuprofen [Motrin] 400 mg PO Q6HR PRN 01/19/20 02/21/20 glipiZIDE [Glucotrol] 10 mg PO DAILY 01/19/20 02/21/20 Albuterol Sulfate [Proair Hfa] 2 puff INHALATION RT-Q4H PRN 02/21/20 02/21/20 Clotrimazole Cream [Lotrimin Cream] 1 applic TOPICAL BID PRN 02/21/20 02/21/20 Docusate [Colace] 100 mg PO DAILY PRN 02/21/20 02/21/20 Ergocalciferol (Vitamin D2) 50,000 unit PO Q7D 02/21/20 02/21/20 [Drisdol] Nystatin 100,000 Unit/ml Susp 4 ml PO QID PRN 02/21/20 02/21/20 [Mycostatin Oral Susp] Nystatin 100,000Unit/gm Cream 1 applic TOPICAL BID PRN 02/21/20 02/21/20 [Mycostatin Cream] Omeprazole [PriLOSEC] 20 mg PO DAILY 02/21/20 02/21/20 Ondansetron [Zofran] 4 mg PO TID PRN 02/21/20 02/21/20 Previous Rx's Medication Instructions Recorded Calcium Carbonate [Tums] 500 mg PO QID PRN chew 10/27/19 Allergies Allergy/AdvReac Type Severity Reaction Status Date / Time dicyclomine HCl [From Bentyl] Allergy Unknown Dyspnea Verified 03/07/20 13:43 latex Allergy Unknown Rash/Hives Verified 03/07/20 13:43 diphenhydramine HCl Allergy Anaphylaxis Verified 03/07/20 13:43 [From Benadryl] adhesive AdvReac Unknown Itching Verified 03/07/20 13:43 ciprofloxacin AdvReac Unknown Nausea Verified 03/07/20 13:43 Macrolide Antibiotics AdvReac Unknown Nausea Verified 03/07/20 13:43 sulfamethoxazole AdvReac Unknown Unknown Verified 03/07/20 13:43 [From Bactrim] trimethoprim [From Bactrim] AdvReac Unknown Unknown Verified 03/07/20 13:43 Review of Systems ROS Statement: Those systems with pertinent positive or pertinent negative responses have been documented in the HPI. ROS Other: All systems not noted in ROS Statement are negative. 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 History of Any Multi-Drug Resistant Organisms: None Reported Past Surgical History: Heart Catheterization, Orthopedic Surgery Additional Past Surgical History / Comment(s): Cysts removed, left thumb surgery, colonoscopy 08/24/2019 Past Anesthesia/Blood Transfusion Reactions: Motion Sickness, Postoperative Nausea & Vomiting (PONV) Past Psychological History: Anxiety, Bipolar, Depression, Schizophrenia Smoking Status: Current every day smoker Past Alcohol Use History: None Reported - Past Family History Brother(s) Family Medical History: Diabetes Mellitus Additional Family Medical History / Comment(s): Patient has 2 brothers. One from complications from diabetes. The second is alive with diabetes. Sister(s) Family Medical History: Cancer Additional Family Medical History / Comment(s): Patient has one sister with breast cancer. Patient does not have any children. Father Family Medical History: Cancer Additional Family Medical History / Comment(s): Father in his 40s or 50s from colon cancer. Mother Family Medical History: Cancer Additional Family Medical History / Comment(s): Mother at age 68 from lung cancer. General Exam - General Exam Comments Initial Comments: GENERAL: Patient is well-developed and well-nourished. Patient is nontoxic and well- hydrated and is in mild distress. ENT: Neck is soft and supple. No significant lymphadenopathy is noted. Oropharynx is clear. Moist mucous membranes. Neck has full range of motion without eliciting any pain. EYES: The sclera were anicteric and conjunctiva were pink and moist. Extraocular movements were intact and pupils were equal round and reactive to light. Eyelids were unremarkable. PULMONARY: Unlabored respirations. Good breath sounds bilaterally. No audible rales rhonchi or wheezing was noted. CARDIOVASCULAR: There is a regular rate and rhythm without any murmurs gallops or rubs. ABDOMEN: Soft and nontender with normal bowel sounds. SKIN: Skin is clear with no lesions or rashes and otherwise unremarkable. NEUROLOGIC: Patient is alert and oriented x3. Cranial nerves II through XII are grossly intact. Motor and sensory are also intact. Normal speech, volume and content. Symmetrical smile. MUSCULOSKELETAL: Normal extremities with adequate strength and full range of motion. No lower extremity swelling or edema. No calf tenderness. LYMPHATICS: No significant lymphadenopathy is noted PSYCHIATRIC: Normal psychiatric evaluation. Limitations: no limitations Course Vital Signs 03/07/20 13:40 Temperature 98.1 F Pulse Rate 83 Respiratory 18 Rate Blood Pressure 142/92 O2 Sat by Pulse 99 Oximetry Medical Decision Making - Medical Decision Making EKG shows normal sinus rhythm at 83 bpm SC interval is on a 42 QRS is 96 QT interval 370 QTC is 444 per patient's EKG shows no ST segment elevation or depression. Patient received a Toradol shot in the emergency department. Disposition Clinical Impression: Chest pain, atypical Disposition: HOME SELF-CARE Condition: Good Instructions (If sedation given, give patient instructions): Chest Pain (ED) Is patient prescribed a controlled substance at d/c from ED?: No Referrals: Ramya Saul MD [Primary Care Provider] - 1-2 days Time of Disposition: 13:55
== END 2020-03-07 14:43 | disposition home or self-care (01) ==
LOC: EC 13:36
DX: R07.89 Other chest pain (principal); F41.9 Anxiety disorder, unspecified; F31.9 Bipolar disorder, unspecified; F20.9 Schizophrenia, unspecified; F17.200 Nicotine dependence, unspecified, uncomplicated; I20.9 Angina pectoris, unspecified; J44.9 Chronic obstructive pulmonary disease, unspecified; E11.9 Type 2 diabetes mellitus without complications; K21.9 Gastro-esophageal reflux disease without esophagitis; E78.5 Hyperlipidemia, unspecified; I10 Essential (primary) hypertension; M19.90 Unspecified osteoarthritis, unspecified site; G40.909 Epilepsy, unspecified, not intractable, without status epilepticus; G47.33 Obstructive sleep apnea (adult) (pediatric); Z79.84 Long term (current) use of oral hypoglycemic drugs; Z79.82 Long term (current) use of aspirin; Z79.899 Other long term (current) drug therapy; Z88.1 Allergy status to other antibiotic agents; Z88.2 Allergy status to sulfonamides; Z88.8 Allergy status to other drugs, medicaments and biological substances; Z91.040 Latex allergy status; Z95.5 Presence of coronary angioplasty implant and graft; Z99.89 Dependence on other enabling machines and devices; Z86.69 Personal history of other diseases of the nervous system and sense organs
CPT/HCPCS: 93005; 99285; 96372; J1885

== ENCOUNTER 2020-03-08 00:23 | Emergency (ER) | payer MEDICARE, OTHER ==
--- NOTE | 2020-03-08 00:46 | ED ---
Back Pain HPI - General Chief Complaint: Back Pain/Injury Stated Complaint: Back pain Time Seen by Provider: 03/08/20 00:30 Source: patient, RN notes reviewed, old records reviewed Limitations: no limitations - History of Present Illness Initial Comments: Patient is a 49-year-old male presents emergency department today with complaints of chronic back pain starting this morning. He was seen earlier in the emergency department stay and was given IM Toradol. He reports it did not help. Patient also complains of decreased appetite. It radiated tuna sandwich while he was in the emergency department tonight. They also mentioned chest pain off-and-on today. His main complaint for coming back to the ERs for chronic back pain. Patient states that he has had no fevers or chills. Denies any localized abdominal pain. - Related Data Home Medications Medication Instructions Recorded Confirmed ARIPiprazole [Abilify] 10 mg PO HS 01/19/19 02/21/20 OLANZapine [ZyPREXA] 10 mg PO HS 01/19/19 02/21/20 metFORMIN HCL 1,000 mg PO BID 04/30/19 02/21/20 Loratadine 10 mg PO DAILY 08/22/19 02/21/20 Aspirin EC [Ecotrin Low Dose] 81 mg PO DAILY 10/25/19 02/21/20 Eucerin Cream 1 applic TOPICAL BID 10/25/19 02/21/20 Hydrocortisone Cream 1 applic TOPICAL BID PRN 10/25/19 02/21/20 [Hydrocortisone 1% Cream] Multivitamins, Thera [Multivitamin 1 tab PO DAILY 12/06/19 02/21/20 (formulary)] Fluticasone Propionate [Flovent 2 puff INHALATION RT-BID PRN 01/19/20 02/21/20 Diskus] Ibuprofen [Motrin] 400 mg PO Q6HR PRN 01/19/20 02/21/20 glipiZIDE [Glucotrol] 10 mg PO DAILY 01/19/20 02/21/20 Albuterol Sulfate [Proair Hfa] 2 puff INHALATION RT-Q4H PRN 02/21/20 02/21/20 Clotrimazole Cream [Lotrimin Cream] 1 applic TOPICAL BID PRN 02/21/20 02/21/20 Docusate [Colace] 100 mg PO DAILY PRN 02/21/20 02/21/20 Ergocalciferol (Vitamin D2) 50,000 unit PO Q7D 02/21/20 02/21/20 [Drisdol] Nystatin 100,000 Unit/ml Susp 4 ml PO QID PRN 02/21/20 02/21/20 [Mycostatin Oral Susp] Nystatin 100,000Unit/gm Cream 1 applic TOPICAL BID PRN 02/21/20 02/21/20 [Mycostatin Cream] Omeprazole [PriLOSEC] 20 mg PO DAILY 02/21/20 02/21/20 Ondansetron [Zofran] 4 mg PO TID PRN 02/21/20 02/21/20 Previous Rx's Medication Instructions Recorded Calcium Carbonate [Tums] 500 mg PO QID PRN chew 10/27/19 Ondansetron Odt [Zofran Odt] 4 mg PO Q8HR PRN #12 tab 03/08/20 Allergies Allergy/AdvReac Type Severity Reaction Status Date / Time dicyclomine HCl [From Bentyl] Allergy Unknown Dyspnea Verified 03/08/20 00:27 latex Allergy Unknown Rash/Hives Verified 03/08/20 00:27 diphenhydramine HCl Allergy Anaphylaxis Verified 03/08/20 00:27 [From Benadryl] adhesive AdvReac Unknown Itching Verified 03/08/20 00:27 ciprofloxacin AdvReac Unknown Nausea Verified 03/08/20 00:27 Macrolide Antibiotics AdvReac Unknown Nausea Verified 03/08/20 00:27 sulfamethoxazole AdvReac Unknown Unknown Verified 03/08/20 00:27 [From Bactrim] trimethoprim [From Bactrim] AdvReac Unknown Unknown Verified 03/08/20 00:27 Review of Systems ROS Statement: Those systems with pertinent positive or pertinent negative responses have been documented in the HPI. ROS Other: All systems not noted in ROS Statement are negative. 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 History of Any Multi-Drug Resistant Organisms: None Reported Past Surgical History: Heart Catheterization, Orthopedic Surgery Additional Past Surgical History / Comment(s): Cysts removed, left thumb surgery, colonoscopy 08/24/2019 Past Anesthesia/Blood Transfusion Reactions: Motion Sickness, Postoperative Nausea & Vomiting (PONV) Past Psychological History: Anxiety, Bipolar, Depression, Schizophrenia Smoking Status: Current every day smoker Past Alcohol Use History: Occasional Past Drug Use History: None Reported - Past Family History Brother(s) Family Medical History: Diabetes Mellitus Additional Family Medical History / Comment(s): Patient has 2 brothers. One from complications from diabetes. The second is alive with diabetes. Sister(s) Family Medical History: Cancer Additional Family Medical History / Comment(s): Patient has one sister with breast cancer. Patient does not have any children. Father Family Medical History: Cancer Additional Family Medical History / Comment(s): Father in his 40s or 50s from colon cancer. Mother Family Medical History: Cancer Additional Family Medical History / Comment(s): Mother at age 68 from lung cancer. General Exam - General Exam Comments Initial Comments: 49 year old male, no distress. Limitations: no limitations General appearance: alert, in no apparent distress Head exam: Present: atraumatic, normocephalic, normal inspection Eye exam: Present: normal appearance, PERRL, EOMI. Absent: scleral icterus, conjunctival injection, periorbital swelling ENT exam: Present: normal exam Neck exam: Present: normal inspection. Absent: tenderness, meningismus, lymphad enopathy Respiratory exam: Present: normal lung sounds bilaterally. Absent: respiratory distress, wheezes, rales, rhonchi, stridor Cardiovascular Exam: Present: regular rate, normal rhythm, normal heart sounds. Absent: systolic murmur, diastolic murmur, rubs, gallop, clicks GI/Abdominal exam: Present: soft, normal bowel sounds. Absent: distended, tenderness, guarding, rebound, rigid Extremities exam: Present: normal inspection, full ROM, normal capillary refill, other (He has spasm on the left lower back. No midline tenderness. Full range of motion of hip and legs.). Absent: tenderness, pedal edema, joint swelling, calf tenderness Back exam: Present: normal inspection Neurological exam: Present: alert, oriented X3, CN II-XII intact Psychiatric exam: Present: normal affect, normal mood Skin exam: Present: warm, dry, intact, normal color. Absent: rash Course Vital Signs 03/08/20 00:23 Temperature 98.4 F Pulse Rate 92 Respiratory 20 Rate Blood Pressure 151/95 O2 Sat by Pulse 99 Oximetry Medical Decision Making - Medical Decision Making 49-year-old male presents weren't R today with chronic back pain. Patient walked to the ER. Also multiple complaints of nausea. No episodes of vomiting. Patient has no abdominal tenderness. Reported intermittent chest pain for weeks. He was seen earlier for the same complaint. This EKG was reviewed and compared today's negative for acute process. He was given IM Norflex for back spasm and Ultram for pain. Is also given Zofran. I advised Patient he needs follow-up with a PCP at this time and is discharged in stable condition. 03/08/20 00:48 EKG performed at 0 34 shows normal sinus rhythm left axis deviation. Incomplete right bundle-branch. Ventricular rate of 80 beats were minute period. Vitals 134 ms. QRS duration is 94 ms. QT QTc is 370/435 ms. Disposition Clinical Impression: Chronic back pain, Nausea Disposition: HOME SELF-CARE Condition: Good Instructions (If sedation given, give patient instructions): Chronic Back Pain (DC) Additional Instructions: Please use medication as discussed. Please follow up with family doctor if symptoms have not improved over the next two days. Please return to the emergency room if your symptoms increase or worsen or for any other concerns. Prescriptions: Ondansetron Odt [Zofran Odt] 4 mg PO Q8HR PRN #12 tab PRN Reason: Nausea Is patient prescribed a controlled substance at d/c from ED?: No Referrals: Ramya Saul MD [Primary Care Provider] - 1-2 days Time of Disposition: 01:43
[2020-03-08] MEDS ORDERED: traMADol 50 MG TAB PO STA (00:48)
[2020-03-08] MEDS ORDERED: ORPHENADRINE 30 MG/ML 2 ML VIAL IM STA (00:48)
[2020-03-08] MEDS ORDERED: ONDANSETRON 4 MG ODT STARTER PACK 2 TAB BTL PO STA (01:09)
[2020-03-08 02:12] VITALS: BP 153/97; PULSE 73; RESP 18; TEMP 98.1
== END 2020-03-08 02:12 | disposition home or self-care (01) ==
LOC: EC 00:23
DX: M54.9 Dorsalgia, unspecified (principal); G89.29 Other chronic pain; R11.0 Nausea; E11.9 Type 2 diabetes mellitus without complications; I10 Essential (primary) hypertension; K21.9 Gastro-esophageal reflux disease without esophagitis; G47.30 Sleep apnea, unspecified; G40.909 Epilepsy, unspecified, not intractable, without status epilepticus; J44.9 Chronic obstructive pulmonary disease, unspecified; F41.9 Anxiety disorder, unspecified; F31.9 Bipolar disorder, unspecified; F17.200 Nicotine dependence, unspecified, uncomplicated; Z79.82 Long term (current) use of aspirin; Z79.84 Long term (current) use of oral hypoglycemic drugs; Z79.899 Other long term (current) drug therapy; Z88.8 Allergy status to other drugs, medicaments and biological substances; Z91.040 Latex allergy status; Z91.048 Other nonmedicinal substance allergy status; Z88.1 Allergy status to other antibiotic agents; Z88.2 Allergy status to sulfonamides; Z86.73 Personal history of transient ischemic attack (TIA), and cerebral infarction without residual deficits; Z99.89 Dependence on other enabling machines and devices
CPT/HCPCS: 99284 ×2; 96372 ×2; 93005; J2360; S0119

== ENCOUNTER 2020-03-08 12:57 | Emergency (ER) | payer MEDICARE, OTHER ==
[2020-03-08 13:05] VITALS: BP 128/97; PULSE 77; RESP 18; TEMP 100.3
[2020-03-08] MEDS ORDERED: ACETAMINOPHEN TAB 500 MG TAB PO STA (13:14)
--- NOTE | 2020-03-08 13:14 | ED ---
General Adult HPI - General Chief complaint: Allergic Reaction Stated complaint: Feeling Sick Time Seen by Provider: 03/08/20 13:00 Source: patient, EMS, RN notes reviewed, old records reviewed Mode of arrival: EMS Limitations: no limitations - History of Present Illness Initial comments: This a 49-year-old male presents emergency Department complaining of some swelling by the right side of his face over the maxillary sinuses. Patient states his little area of redness right in the crease of his nose and face. Patient states it wasn't there last night but woke up this morning swollen. Patient does have a low-grade fever. Patient denies any other symptoms at this time. Patient denies any tenderness to his teeth. Patient states she's been a little congested lately. Patient denies any chest pain difficulty breathing shortest breath. - Related Data Home Medications Medication Instructions Recorded Confirmed ARIPiprazole [Abilify] 10 mg PO HS 01/19/19 02/21/20 OLANZapine [ZyPREXA] 10 mg PO HS 01/19/19 02/21/20 metFORMIN HCL 1,000 mg PO BID 04/30/19 02/21/20 Loratadine 10 mg PO DAILY 08/22/19 02/21/20 Aspirin EC [Ecotrin Low Dose] 81 mg PO DAILY 10/25/19 02/21/20 Eucerin Cream 1 applic TOPICAL BID 10/25/19 02/21/20 Hydrocortisone Cream 1 applic TOPICAL BID PRN 10/25/19 02/21/20 [Hydrocortisone 1% Cream] Multivitamins, Thera [Multivitamin 1 tab PO DAILY 12/06/19 02/21/20 (formulary)] Fluticasone Propionate [Flovent 2 puff INHALATION RT-BID PRN 01/19/20 02/21/20 Diskus] Ibuprofen [Motrin] 400 mg PO Q6HR PRN 01/19/20 02/21/20 glipiZIDE [Glucotrol] 10 mg PO DAILY 01/19/20 02/21/20 Albuterol Sulfate [Proair Hfa] 2 puff INHALATION RT-Q4H PRN 02/21/20 02/21/20 Clotrimazole Cream [Lotrimin Cream] 1 applic TOPICAL BID PRN 02/21/20 02/21/20 Docusate [Colace] 100 mg PO DAILY PRN 02/21/20 02/21/20 Ergocalciferol (Vitamin D2) 50,000 unit PO Q7D 02/21/20 02/21/20 [Drisdol] Nystatin 100,000 Unit/ml Susp 4 ml PO QID PRN 02/21/20 02/21/20 [Mycostatin Oral Susp] Nystatin 100,000Unit/gm Cream 1 applic TOPICAL BID PRN 02/21/20 02/21/20 [Mycostatin Cream] Omeprazole [PriLOSEC] 20 mg PO DAILY 02/21/20 02/21/20 Ondansetron [Zofran] 4 mg PO TID PRN 02/21/20 02/21/20 Previous Rx's Medication Instructions Recorded Calcium Carbonate [Tums] 500 mg PO QID PRN chew 10/27/19 Amoxicillin/Potassium Clav 1 each PO Q12HR #28 tab 03/08/20 [Augmentin 875-125 Tablet] Ondansetron Odt [Zofran Odt] 4 mg PO Q8HR PRN #12 tab 03/08/20 Allergies Allergy/AdvReac Type Severity Reaction Status Date / Time dicyclomine HCl [From Bentyl] Allergy Unknown Dyspnea Verified 03/08/20 00:27 latex Allergy Unknown Rash/Hives Verified 03/08/20 00:27 diphenhydramine HCl Allergy Anaphylaxis Verified 03/08/20 00:27 [From Benadryl] adhesive AdvReac Unknown Itching Verified 03/08/20 00:27 ciprofloxacin AdvReac Unknown Nausea Verified 03/08/20 00:27 Macrolide Antibiotics AdvReac Unknown Nausea Verified 03/08/20 00:27 sulfamethoxazole AdvReac Unknown Unknown Verified 03/08/20 00:27 [From Bactrim] trimethoprim [From Bactrim] AdvReac Unknown Unknown Verified 03/08/20 00:27 Review of Systems ROS Statement: Those systems with pertinent positive or pertinent negative responses have been documented in the HPI. ROS Other: All systems not noted in ROS Statement are negative. 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 History of Any Multi-Drug Resistant Organisms: None Reported Past Surgical History: Heart Catheterization, Orthopedic Surgery Additional Past Surgical History / Comment(s): Cysts removed, left thumb surgery, colonoscopy 08/24/2019 Past Anesthesia/Blood Transfusion Reactions: Motion Sickness, Postoperative Nausea & Vomiting (PONV) Past Psychological History: Anxiety, Bipolar, Depression, Schizophrenia Smoking Status: Current every day smoker Past Alcohol Use History: Occasional Past Drug Use History: None Reported - Past Family History Brother(s) Family Medical History: Diabetes Mellitus Additional Family Medical History / Comment(s): Patient has 2 brothers. One from complications from diabetes. The second is alive with diabetes. Sister(s) Family Medical History: Cancer Additional Family Medical History / Comment(s): Patient has one sister with breast cancer. Patient does not have any children. Father Family Medical History: Cancer Additional Family Medical History / Comment(s): Father in his 40s or 50s from colon cancer. Mother Family Medical History: Cancer Additional Family Medical History / Comment(s): Mother at age 68 from lung cancer. General Exam - General Exam Comments Initial Comments: GENERAL: Patient is well-developed and well-nourished. Patient is nontoxic and well- hydrated and is in mild distress. ENT: Neck is soft and supple. No significant lymphadenopathy is noted. Oropharynx is clear. Moist mucous membranes. Neck has full range of motion without eliciting any pain. Patient has some swelling on the right side of her face of right above the maxillary sinuses patient also has a little area of tenderness and redness where the nose creases to meet the face. EYES: The sclera were anicteric and conjunctiva were pink and moist. Extraocular movements were intact and pupils were equal round and reactive to light. Eyelids were unremarkable. PULMONARY: Unlabored respirations. Good breath sounds bilaterally. No audible rales rhonchi or wheezing was noted. CARDIOVASCULAR: There is a regular rate and rhythm without any murmurs gallops or rubs. ABDOMEN: Soft and nontender with normal bowel sounds. SKIN: Skin is clear with no lesions or rashes and otherwise unremarkable. NEUROLOGIC: Patient is alert and oriented x3. Cranial nerves II through XII are grossly intact. Motor and sensory are also intact. Normal speech, volume and content. Symmetrical smile. MUSCULOSKELETAL: Normal extremities with adequate strength and full range of motion. LYMPHATICS: No significant lymphadenopathy is noted PSYCHIATRIC: Normal psychiatric evaluation. Limitations: no limitations Course Vital Signs 03/08/20 13:02 Temperature 100.3 F H Pulse Rate 77 Respiratory 18 Rate Blood Pressure 128/97 O2 Sat by Pulse 97 Oximetry Disposition Clinical Impression: Maxillary sinusitis Disposition: HOME SELF-CARE Condition: Good Instructions (If sedation given, give patient instructions): Sinusitis (ED) Prescriptions: Amoxicillin/Potassium Clav [Augmentin 875-125 Tablet] 1 each PO Q12HR #28 tab Is patient prescribed a controlled substance at d/c from ED?: No Referrals: Ramya Saul MD [Primary Care Provider] - 1-2 days Time of Disposition: 13:13
== END 2020-03-08 13:20 | disposition home or self-care (01) ==
LOC: EC 12:57
DX: J32.0 Chronic maxillary sinusitis (principal); F41.9 Anxiety disorder, unspecified; F31.9 Bipolar disorder, unspecified; F20.9 Schizophrenia, unspecified; F17.200 Nicotine dependence, unspecified, uncomplicated; J44.9 Chronic obstructive pulmonary disease, unspecified; I20.9 Angina pectoris, unspecified; E11.9 Type 2 diabetes mellitus without complications; K21.9 Gastro-esophageal reflux disease without esophagitis; E78.5 Hyperlipidemia, unspecified; I10 Essential (primary) hypertension; M19.90 Unspecified osteoarthritis, unspecified site; G40.909 Epilepsy, unspecified, not intractable, without status epilepticus; G47.33 Obstructive sleep apnea (adult) (pediatric); Z79.84 Long term (current) use of oral hypoglycemic drugs; Z79.82 Long term (current) use of aspirin; Z79.899 Other long term (current) drug therapy; Z88.1 Allergy status to other antibiotic agents; Z88.2 Allergy status to sulfonamides; Z88.8 Allergy status to other drugs, medicaments and biological substances; Z91.040 Latex allergy status; Z86.73 Personal history of transient ischemic attack (TIA), and cerebral infarction without residual deficits; Z99.89 Dependence on other enabling machines and devices; Z95.5 Presence of coronary angioplasty implant and graft
CPT/HCPCS: 99284

== ENCOUNTER 2020-03-24 15:04 | Emergency (ER) | payer MEDICARE, OTHER ==
[2020-03-24 15:22] VITALS: BP 142/87; PULSE 90; RESP 18; TEMP 98.2
--- NOTE | 2020-03-24 17:18 | US ---
EXAMINATION TYPE: US venous doppler duplex LE RT DATE OF EXAM: 03/24/2020 3:38 PM COMPARISON: NONE CLINICAL HISTORY: r/o dvt. Right leg swelling SIDE PERFORMED: Right TECHNIQUE: The lower extremity deep venous system is examined utilizing real time linear array sonog ciara with graded compression, doppler sonography and color-flow sonography. VESSELS IMAGED: External Iliac Vein (EIV) Common Femoral Vein Deep Femoral Vein Greater Saphenous Vein * Femoral Vein Popliteal Vein Small Saphenous Vein * Proximal Calf Veins (* superficial vessels) Right Leg: Negative for DVT IMPRESSION: No sign of deep vein thrombosis in the right leg.
--- NOTE | 2020-03-24 18:01 | ED ---
Lower Extremity Injury HPI - General Chief Complaint: Extremity Injury, Lower Stated Complaint: High Blood Sugar Time Seen by Provider: 03/24/20 15:24 Source: patient Mode of arrival: ambulatory Limitations: no limitations - History of Present Illness Initial Comments: Patient is a 50-year-old female presenting to the emergency department with a chief complaint of right leg pain. Patient reports a started yesterday after he he was walking for long periods time. Patient states he's having swelling in the right lower leg. States he also has a burning sensation that is exacerbated with ambulation. Denies any numbness or tingling. Denies history of DVT or PE. Denies any overlying erythema or cellulitic skin changes. Denies any trauma to her leg. - Related Data Home Medications Medication Instructions Recorded Confirmed ARIPiprazole [Abilify] 10 mg PO HS 01/19/19 02/21/20 OLANZapine [ZyPREXA] 10 mg PO HS 01/19/19 02/21/20 metFORMIN HCL 1,000 mg PO BID 04/30/19 02/21/20 Loratadine 10 mg PO DAILY 08/22/19 02/21/20 Aspirin EC [Ecotrin Low Dose] 81 mg PO DAILY 10/25/19 02/21/20 Eucerin Cream 1 applic TOPICAL BID 10/25/19 02/21/20 Hydrocortisone Cream 1 applic TOPICAL BID PRN 10/25/19 02/21/20 [Hydrocortisone 1% Cream] Multivitamins, Thera [Multivitamin 1 tab PO DAILY 12/06/19 02/21/20 (formulary)] Fluticasone Propionate [Flovent 2 puff INHALATION RT-BID PRN 01/19/20 02/21/20 Diskus] Ibuprofen [Motrin] 400 mg PO Q6HR PRN 01/19/20 02/21/20 glipiZIDE [Glucotrol] 10 mg PO DAILY 01/19/20 02/21/20 Albuterol Sulfate [Proair Hfa] 2 puff INHALATION RT-Q4H PRN 02/21/20 02/21/20 Clotrimazole Cream [Lotrimin Cream] 1 applic TOPICAL BID PRN 02/21/20 02/21/20 Docusate [Colace] 100 mg PO DAILY PRN 02/21/20 02/21/20 Ergocalciferol (Vitamin D2) 50,000 unit PO Q7D 02/21/20 02/21/20 [Drisdol] Nystatin 100,000 Unit/ml Susp 4 ml PO QID PRN 02/21/20 02/21/20 [Mycostatin Oral Susp] Nystatin 100,000Unit/gm Cream 1 applic TOPICAL BID PRN 02/21/20 02/21/20 [Mycostatin Cream] Omeprazole [PriLOSEC] 20 mg PO DAILY 02/21/20 02/21/20 Ondansetron [Zofran] 4 mg PO TID PRN 02/21/20 02/21/20 Previous Rx's Medication Instructions Recorded Calcium Carbonate [Tums] 500 mg PO QID PRN chew 10/27/19 Amoxicillin/Potassium Clav 1 each PO Q12HR #28 tab 03/08/20 [Augmentin 875-125 Tablet] Ondansetron Odt [Zofran Odt] 4 mg PO Q8HR PRN #12 tab 03/08/20 Ibuprofen [Motrin] 600 mg PO Q8HR PRN #30 tab 03/24/20 Allergies Allergy/AdvReac Type Severity Reaction Status Date / Time dicyclomine HCl [From Bentyl] Allergy Unknown Dyspnea Verified 03/24/20 15:22 latex Allergy Unknown Rash/Hives Verified 03/24/20 15:22 diphenhydramine HCl Allergy Anaphylaxis Verified 03/24/20 15:22 [From Benadryl] adhesive AdvReac Unknown Itching Verified 03/24/20 15:22 ciprofloxacin AdvReac Unknown Nausea Verified 03/24/20 15:22 Macrolide Antibiotics AdvReac Unknown Nausea Verified 03/24/20 15:22 sulfamethoxazole AdvReac Unknown Unknown Verified 03/24/20 15:22 [From Bactrim] trimethoprim [From Bactrim] AdvReac Unknown Unknown Verified 03/24/20 15:22 Review of Systems ROS Statement: Those systems with pertinent positive or pertinent negative responses have been documented in the HPI. ROS Other: All systems not noted in ROS Statement are negative. 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 History of Any Multi-Drug Resistant Organisms: None Reported Past Surgical History: Heart Catheterization, Orthopedic Surgery Additional Past Surgical History / Comment(s): Cysts removed, left thumb surgery, colonoscopy 08/24/2019 Past Anesthesia/Blood Transfusion Reactions: Motion Sickness, Postoperative Nausea & Vomiting (PONV) Past Psychological History: Anxiety, Bipolar, Depression, Schizophrenia Smoking Status: Current every day smoker Past Alcohol Use History: Occasional Past Drug Use History: None Reported - Past Family History Brother(s) Family Medical History: Diabetes Mellitus Additional Family Medical History / Comment(s): Patient has 2 brothers. One from complications from diabetes. The second is alive with diabetes. Sister(s) Family Medical History: Cancer Additional Family Medical History / Comment(s): Patient has one sister with breast cancer. Patient does not have any children. Father Family Medical History: Cancer Additional Family Medical History / Comment(s): Father in his 40s or 50s from colon cancer. Mother Family Medical History: Cancer Additional Family Medical History / Comment(s): Mother at age 68 from lung cancer. General Exam Limitations: no limitations General appearance: alert, in no apparent distress, obese Head exam: Present: atraumatic, normocephalic, normal inspection Eye exam: Present: normal appearance, PERRL, EOMI Pupils: Present: normal accommodation ENT exam: Present: normal exam, normal oropharynx, mucous membranes moist Neck exam: Present: normal inspection, full ROM. Absent: tenderness Respiratory exam: Present: normal lung sounds bilaterally. Absent: respiratory distress, wheezes, rales Cardiovascular Exam: Present: regular rate, normal rhythm, normal heart sounds Extremities exam: Present: normal inspection (Mild swelling noted in the right lower extremity.), full ROM, tenderness (Calf tenderness), normal capillary refill, calf tenderness (Right Homans positive), other (+2 ulnar and radial pulses bilateral. +2 dorsalis pedis and posterior tibialis bilaterally.). Absent: pedal edema, joint swelling Back exam: Present: normal inspection, full ROM. Absent: tenderness, CVA tenderness (R), CVA tenderness (L) Neurological exam: Present: alert, oriented X3, normal gait Psychiatric exam: Present: normal affect, normal mood Skin exam: Present: warm, dry, intact, normal color Course Vital Signs 03/24/20 15:21 Temperature 98.2 F Pulse Rate 90 Respiratory 18 Rate Blood Pressure 142/87 O2 Sat by Pulse 99 Oximetry Medical Decision Making - Medical Decision Making patient is a 50-year-old male presenting to emergency Department with a chief complaint of right leg pain. Patient is neurovascularly intact in the right lower extremity. He does have some calf tenderness on the right leg. Doppler ultrasound is negative for DVT. I suspect the symptoms are secondary to excessive walking and prolonged periods of standing prior to the onset of symptoms. Patient advised to take Tylenol or Motrin for pain control. He was advised to rest and keep the foot elevated. Strict return parameters were thoroughly discussed the patient was understanding and agreeable. Case discussed with physician. Disposition Clinical Impression: Pain and swelling of right lower extremity Disposition: HOME SELF-CARE Condition: Stable Instructions (If sedation given, give patient instructions): Leg Pain (ED) Additional Instructions: Follow-up with personal injury specialist. Alternate between Tylenol and Motrin for pain control. Return to emergency department if symptoms worsen. Prescriptions: Ibuprofen [Motrin] 600 mg PO Q8HR PRN #30 tab PRN Reason: Pain Is patient prescribed a controlled substance at d/c from ED?: No Referrals: Ramya aSul MD [Primary Care Provider] - 1-2 days Time of Disposition: 18:01
[2020-03-24] MEDS ORDERED: IBUPROFEN 800 MG TAB PO STA (18:04)
== END 2020-03-24 18:11 | disposition home or self-care (01) ==
LOC: EC 15:04
DX: M79.89 Other specified soft tissue disorders (principal); M79.604 Pain in right leg; K21.9 Gastro-esophageal reflux disease without esophagitis; J44.9 Chronic obstructive pulmonary disease, unspecified; E11.9 Type 2 diabetes mellitus without complications; E78.5 Hyperlipidemia, unspecified; I10 Essential (primary) hypertension; M19.90 Unspecified osteoarthritis, unspecified site; I69.354 Hemiplegia and hemiparesis following cerebral infarction affecting left non-dominant side; G40.909 Epilepsy, unspecified, not intractable, without status epilepticus; F17.200 Nicotine dependence, unspecified, uncomplicated; G47.30 Sleep apnea, unspecified; F41.9 Anxiety disorder, unspecified; F31.9 Bipolar disorder, unspecified; F20.9 Schizophrenia, unspecified; Z79.51 Long term (current) use of inhaled steroids; Z79.84 Long term (current) use of oral hypoglycemic drugs; Z79.899 Other long term (current) drug therapy; Z79.82 Long term (current) use of aspirin; Z91.040 Latex allergy status; Z91.048 Other nonmedicinal substance allergy status; Z88.2 Allergy status to sulfonamides; Z88.8 Allergy status to other drugs, medicaments and biological substances; Z88.1 Allergy status to other antibiotic agents; Z99.89 Dependence on other enabling machines and devices; Z95.5 Presence of coronary angioplasty implant and graft
CPT/HCPCS: 99283

== ENCOUNTER 2020-04-12 15:21 | Emergency (ER) | payer MEDICARE, OTHER ==
[2020-04-12 15:27] VITALS: TEMP 98
[2020-04-12] MEDS ORDERED: SODIUM CHLORIDE 0.9% 1,000 ML IV STA (16:11)
[2020-04-12] MEDS ORDERED: KETOROLAC 15 MG/ML 1 ML VIAL IVP STA (16:11)
--- NOTE | 2020-04-12 16:13 | ED ---
Abdominal Pain HPI - General Chief Complaint: Abdominal Pain Stated Complaint: Pain, Low Blood Sugar Time Seen by Provider: 04/12/20 15:32 Source: patient Mode of arrival: ambulatory Limitations: no limitations - History of Present Illness Initial Comments: Patient is a 50-year-old male with past medical history of COPD, diabetes, hypertension, hyperlipidemia presents to the emergency department with reported "pain all over" and hypoglycemia. Patient reports that he's had a poor appetite for the past 3 weeks. He does take metformin and glipizide. He has been measuring her sugars at night and noted that they have gone down as low as 23. Reports he's had several readings in the 60s. He continues to take his medications as directed. Complains of suprapubic abdominal pain and bloating. Denies fevers or chills. No diarrhea or constipation. No changes in his urination. She denies fevers or chills. No chest pain. Admits to chronic shortness of breath due to his COPD. Patient denies GI doctor today. He was concerned about the patient's bloating and gas. That he need to be taken off of his metformin. Patient decided to come into the emergency department for evaluation. There are no other alleviating, precipitating or modifying factors - Related Data Home Medications Medication Instructions Recorded Confirmed ARIPiprazole [Abilify] 10 mg PO HS 01/19/19 04/12/20 OLANZapine [ZyPREXA] 10 mg PO HS 01/19/19 04/12/20 metFORMIN HCL 1,000 mg PO AC-BID 04/30/19 04/12/20 Loratadine 10 mg PO DAILY 08/22/19 04/12/20 glipiZIDE [Glucotrol] 10 mg PO AC-BID 01/19/20 04/12/20 Albuterol Sulfate [Proair Hfa] 2 puff INHALATION RT-Q6H PRN 02/21/20 04/12/20 Acetaminophen Tab [Tylenol Tab] 500 - 1,000 mg PO Q6H PRN 04/12/20 04/12/20 Chlorhexidine Gluconate [Peridex] 15 ml PO BID 04/12/20 04/12/20 Dicyclomine [Bentyl] 20 mg PO QID 04/12/20 04/12/20 Ergocalciferol [Vitamin D2] 50,000 unit PO MO 04/12/20 04/12/20 Fluticasone Nasal [place] [Flonase 2 spray EA NOSTRIL DAILY 04/12/20 04/12/20 Nasal [place]] Fluticasone Propionate [Flovent 2 puff INHALATION RT-BID 04/12/20 04/12/20 Diskus] Loperamide [Imodium] 2 mg PO QID PRN 04/12/20 04/12/20 Omeprazole 40 mg PO DAILY 04/12/20 04/12/20 Tamsulosin [Flomax] 0.4 mg PO DAILY 04/12/20 04/12/20 Allergies Allergy/AdvReac Type Severity Reaction Status Date / Time dicyclomine HCl [From Bentyl] Allergy Unknown Dyspnea Verified 04/12/20 16:19 latex Allergy Unknown Rash/Hives Verified 04/12/20 16:19 diphenhydramine HCl Allergy Anaphylaxis Verified 04/12/20 16:19 [From Benadryl] adhesive AdvReac Unknown Itching Verified 04/12/20 16:19 ciprofloxacin AdvReac Unknown Nausea Verified 04/12/20 16:19 Macrolide Antibiotics AdvReac Unknown Nausea Verified 04/12/20 16:19 sulfamethoxazole AdvReac Unknown Unknown Verified 04/12/20 16:19 [From Bactrim] trimethoprim [From Bactrim] AdvReac Unknown Unknown Verified 04/12/20 16:19 Review of Systems ROS Statement: Those systems with pertinent positive or pertinent negative responses have been documented in the HPI. ROS Other: All systems not noted in ROS Statement are negative. 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 History of Any Multi-Drug Resistant Organisms: None Reported Past Surgical History: Heart Catheterization, Orthopedic Surgery Additional Past Surgical History / Comment(s): Cysts removed, left thumb surgery, colonoscopy 08/24/2019 Past Anesthesia/Blood Transfusion Reactions: Motion Sickness, Postoperative Nausea & Vomiting (PONV) Past Psychological History: Anxiety, Bipolar, Depression, Schizophrenia Smoking Status: Current every day smoker Past Alcohol Use History: Occasional Past Drug Use History: None Reported - Past Family History Brother(s) Family Medical History: Diabetes Mellitus Additional Family Medical History / Comment(s): Patient has 2 brothers. One from complications from diabetes. The second is alive with diabetes. Sister(s) Family Medical History: Cancer Additional Family Medical History / Comment(s): Patient has one sister with breast cancer. Patient does not have any children. Father Family Medical History: Cancer Additional Family Medical History / Comment(s): Father in his 40s or 50s from colon cancer. Mother Family Medical History: Cancer Additional Family Medical History / Comment(s): Mother at age 68 from lung cancer. General Exam Limitations: no limitations Course Vital Signs 04/12/20 04/12/20 15:25 17:41 Temperature 98.0 F Pulse Rate 93 60 Respiratory 20 16 Rate Blood Pressure 155/99 133/90 O2 Sat by Pulse 99 99 Oximetry Medical Decision Making - Medical Decision Making Upon arrival the patient is placed in room 27. A thorough history and physical was performed. Peripheral IV is established. Patient was given a liter bolus of normal saline as he has had poor by mouth intake. 15 mg of Toradol was administered for his diffuse pain. Laboratory studies were conducted. Glucose is 138. Urine is positive for 1+ glucose. CK 346. Results are discussed with the patient. He is requesting something additional for pain control therefore was given 4 mg of morphine. Instructed him to keep a glucose log. Must follow up with his primary care doctor within 2-4 days for reevaluation. If he is having hypoglycemia night he may need to come off of his nighttime dose of metformin. Patient understood this. Return to the emergency room for any worsening symptoms per patient was discharged in stable condition - Lab Data Result diagrams: 04/12/20 16:11 04/12/20 16:11 Lab Results 04/12/20 04/12/20 04/12/20 Range/Units 16:11 16:11 16:11 WBC 6.3 (3.8-10.6) k/uL RBC 5.22 (4.30-5.90) m/uL Hgb 15.8 (13.0-17.5) gm/dL Hct 45.6 (39.0-53.0) % MCV 87.5 (80.0-100.0) fL MCH 30.3 (25.0-35.0) pg MCHC 34.6 (31.0-37.0) g/dL RDW 13.5 (11.5-15.5) % Plt Count 215 (150-450) k/uL Neutrophils % 65 % Lymphocytes % 23 % Monocytes % 5 % Eosinophils % 5 % Basophils % 1 % Neutrophils # 4.1 (1.3-7.7) k/uL Lymphocytes # 1.5 (1.0-4.8) k/uL Monocytes # 0.3 (0-1.0) k/uL Eosinophils # 0.3 (0-0.7) k/uL Basophils # 0.0 (0-0.2) k/uL PT 9.8 (9.0-12.0) sec INR 0.9 (<1.2) APTT 22.2 (22.0-30.0) sec Sodium (137-145) mmol/L Potassium (3.5-5.1) mmol/L Chloride (98-107) mmol/L Carbon Dioxide (22-30) mmol/L Anion Gap mmol/L BUN (9-20) mg/dL Creatinine (0.66-1.25) mg/dL Est GFR (CKD-EPI)AfAm (>60 ml/min/1.73 sqM) Est GFR (CKD-EPI)NonAf (>60 ml/min/1.73 sqM) Glucose (74-99) mg/dL Plasma Lactic Acid [place] (0.7-2.0) mmol/L Calcium (8.4-10.2) mg/dL Total Bilirubin (0.2-1.3) mg/dL AST (17-59) U/L ALT (4-49) U/L Alkaline Phosphatase (38-126) U/L Creatine Kinase (55-170) U/L Total Protein (6.3-8.2) g/dL Albumin (3.5-5.0) g/dL Lipase (23-300) U/L Urine Color Light Yellow Urine Appearance Clear (Clear) Urine pH 6.0 (5.0-8.0) Ur Specific Marcus 1.010 (1.001-1.035) Urine Protein Negative (Negative) Urine Glucose (UA) 1+ H (Negative) Urine Ketones Negative (Negative) Urine Blood Negative (Negative) Urine Nitrite Negative (Negative) Urine Bilirubin Negative (Negative) Urine Urobilinogen <2.0 (<2.0) mg/dL Ur Leukocyte Esterase Negative (Negative) 04/12/20 04/12/20 Range/Units 16:11 16:11 WBC (3.8-10.6) k/uL RBC (4.30-5.90) m/uL Hgb (13.0-17.5) gm/dL Hct (39.0-53.0) % MCV (80.0-100.0) fL MCH (25.0-35.0) pg MCHC (31.0-37.0) g/dL RDW (11.5-15.5) % Plt Count (150-450) k/uL Neutrophils % % Lymphocytes % % Monocytes % % Eosinophils % % Basophils % % Neutrophils # (1.3-7.7) k/uL Lymphocytes # (1.0-4.8) k/uL Monocytes # (0-1.0) k/uL Eosinophils # (0-0.7) k/uL Basophils # (0-0.2) k/uL PT (9.0-12.0) sec INR (<1.2) APTT (22.0-30.0) sec Sodium 140 (137-145) mmol/L Potassium 3.6 (3.5-5.1) mmol/L Chloride 112 H (98-107) mmol/L Carbon Dioxide 20 L (22-30) mmol/L Anion Gap 8 mmol/L BUN 11 (9-20) mg/dL Creatinine 0.62 L (0.66-1.25) mg/dL Est GFR (CKD-EPI)AfAm >90 (>60 ml/min/1.73 sqM) Est GFR (CKD-EPI)NonAf >90 (>60 ml/min/1.73 sqM) Glucose 138 H (74-99) mg/dL Plasma Lactic Acid Hunter 1.3 (0.7-2.0) mmol/L Calcium 9.7 (8.4-10.2) mg/dL Total Bilirubin 0.5 (0.2-1.3) mg/dL AST 48 (17-59) U/L ALT 62 H (4-49) U/L Alkaline Phosphatase 67 (38-126) U/L Creatine Kinase 346 H (55-170) U/L Total Protein 6.6 (6.3-8.2) g/dL Albumin 4.2 (3.5-5.0) g/dL Lipase 79 (23-300) U/L Urine Color Urine Appearance (Clear) Urine pH (5.0-8.0) Ur Specific Marcus (1.001-1.035) Urine Protein (Negative) Urine Glucose (UA) (Negative) Urine Ketones (Negative) Urine Blood (Negative) Urine Nitrite (Negative) Urine Bilirubin (Negative) Urine Urobilinogen (<2.0) mg/dL Ur Leukocyte Esterase (Negative) - EKG Data EKG Comments: EKG demonstrates a sinus bradycardia with a ventricular rate of 59. IA interval 132. QRS 100. QTC of 429. No acute ST segment elevations or depressions concerning for ischemic changes Disposition Clinical Impression: Hypoglycemia Disposition: HOME SELF-CARE Condition: Stable Instructions (If sedation given, give patient instructions): Dehydration (ED) Additional Instructions: Please follow-up with your primary care doctor in regards to your medications. Return to the emergency room for any new or worsening symptoms Is patient prescribed a controlled substance at d/c from ED?: No Referrals: Ramya Saul MD [Primary Care Provider] - 1-2 days Time of Disposition: 17:30
[2020-04-12 16:41] LABS: Basophils % (A) 1 %; Eosinophils # (A) 0.3 k/uL (0-0.7); Eosinophils % (A) 5 %; HCT 45.6 % (39.0-53.0); HGB 15.8 gm/dL (13.0-17.5); Lymphocytes # (A) 1.5 k/uL (1.0-4.8); Lymphocytes % (A) 23 %; MCH 30.3 pg (25.0-35.0); MCHC 34.6 g/dL (31.0-37.0); MCV 87.5 fL (80.0-100.0); Mean Platelet Volume 7.5; Monocytes # (A) 0.3 k/uL (0-1.0); Monocytes % (A) 5 %; Neutrophils # (A) 4.1 k/uL (1.3-7.7); Neutrophils % (A) 65 %; Platelet Count 215 k/uL (150-450); RBC 5.22 m/uL (4.30-5.90); RDW 13.5 % (11.5-15.5); WBC 6.3 k/uL (3.8-10.6)
[2020-04-12 16:42] LABS: Appearance,Urine Clear (Clear); Bilirubin,Urine Negative (Negative); Blood,Urine Negative (Negative); Color,Urine Light Yellow; Glucose,Urine (UA) 1+ (Negative); Ketones,Urine Negative (Negative); Leukocyte Esterase,Urine Negative (Negative); Nitrite,Urine Negative (Negative); Protein,Urine Negative (Negative); Urobilinogen,Urine <2.0 mg/dL (<2.0)
[2020-04-12 16:53] LABS: ALT 62 U/L (4-49); AST 48 U/L (17-59); African American GFR (CKD) >90 (>60 ml/min/1.73 sqM); Albumin 4.2 g/dL (3.5-5.0); Alkaline Phosphatase 67 U/L (38-126); Anion Gap 8 mmol/L; Blood Urea Nitrogen 11 mg/dL (9-20); Calcium 9.7 mg/dL (8.4-10.2); Carbon Dioxide 20 mmol/L (22-30); Chloride 112 mmol/L (98-107); Creatine Kinase 346 U/L (55-170); Glucose 138 mg/dL (74-99); Non-African American GFR(CKD) >90 (>60 ml/min/1.73 sqM); Potassium 3.6 mmol/L (3.5-5.1); Sodium 140 mmol/L (137-145); Total Bilirubin 0.5 mg/dL (0.2-1.3); Total Protein 6.6 g/dL (6.3-8.2)
[2020-04-12 17:06] LABS: INR 0.9 (<1.2)
[2020-04-12 17:07] LABS: Partial Thromboplastin Time 22.2 sec (22.0-30.0); Prothrombin Time 9.8 sec (9.0-12.0)
[2020-04-12] MEDS ORDERED: MORPHINE SULFATE 4 MG/ML SYRINGE IVP STA (17:28)
[2020-04-12 17:42] VITALS: BP 133/90; PULSE 60; RESP 16
== END 2020-04-12 17:47 | disposition home or self-care (01) ==
LOC: EC 15:21
DX: E11.649 Type 2 diabetes mellitus with hypoglycemia without coma (principal); R10.30 Lower abdominal pain, unspecified; F41.9 Anxiety disorder, unspecified; F31.9 Bipolar disorder, unspecified; F20.9 Schizophrenia, unspecified; F17.200 Nicotine dependence, unspecified, uncomplicated; J44.9 Chronic obstructive pulmonary disease, unspecified; K21.9 Gastro-esophageal reflux disease without esophagitis; E78.5 Hyperlipidemia, unspecified; I10 Essential (primary) hypertension; G40.909 Epilepsy, unspecified, not intractable, without status epilepticus; G47.33 Obstructive sleep apnea (adult) (pediatric); Z79.51 Long term (current) use of inhaled steroids; Z79.4 Long term (current) use of insulin; Z79.899 Other long term (current) drug therapy; Z88.1 Allergy status to other antibiotic agents; Z88.2 Allergy status to sulfonamides; Z88.8 Allergy status to other drugs, medicaments and biological substances; Z91.040 Latex allergy status; Z95.5 Presence of coronary angioplasty implant and graft; Z86.73 Personal history of transient ischemic attack (TIA), and cerebral infarction without residual deficits
CPT/HCPCS: 36415; 93005; 80053; 82550; 83605; 83690; 85025; 85610; 85730; 81003; 99284; 96374; 96375; 96361; J2270; J1885

== ENCOUNTER 2020-04-23 23:09 | Observation (INO) | payer MEDICARE, OTHER ==
[2020-04-23 23:31] LABS: Glucose,Whole Blood 120 mg/dL (75-99)
--- NOTE | 2020-04-23 23:35 | ED ---
Chest Pain HPI - General Chief Complaint: Chest Pain Stated Complaint: Chest Pain Time Seen by Provider: 04/23/20 23:16 Source: patient Mode of arrival: wheelchair Limitations: no limitations - History of Present Illness Initial Comments: 's patient is a 50-year-old man who presents to be evaluated for substernal chest pain and low abdominal pain. Patient states this is been going on over 24 hours. He had seen his grades 6 through [employer] teacher yesterday just afternoon and discussed the symptoms with her, and was instructed that if they continued into the night that he should be evaluated here. The patient describes pain as sharp, constant, moderate intensity. He has not noted worsening or relieving factors. He states that he feels he is having a dry mouth associated and that earlier in the day his blood sugar had been high. MD Complaint: chest pain Onset/Timin -: days(s) Onset: during rest Pain Location: left chest Pain Radiation: none Severity: moderate Quality: sharp Consistency: constant Improves With: nothing Worsens With: nothing Treatments Prior to Arrival: none - Related Data Home Medications Medication Instructions Recorded Confirmed ARIPiprazole [Abilify] 10 mg PO HS 01/19/19 04/23/20 OLANZapine [ZyPREXA] 10 mg PO HS 01/19/19 04/23/20 metFORMIN HCL 1,000 mg PO AC-BID 04/30/19 04/23/20 Loratadine 10 mg PO DAILY 08/22/19 04/23/20 glipiZIDE [Glucotrol] 10 mg PO AC-BID 01/19/20 04/23/20 Albuterol Sulfate [Proair Hfa] 2 puff INHALATION RT-Q6H PRN 02/21/20 04/23/20 Acetaminophen Tab [Tylenol] 500 - 1,000 mg PO Q6H PRN 04/12/20 04/23/20 Chlorhexidine Gluconate [Peridex] 15 ml PO BID 04/12/20 04/23/20 Dicyclomine [Bentyl] 20 mg PO QID 04/12/20 04/23/20 Ergocalciferol [Vitamin D2 50,000 unit PO MO 04/12/20 04/23/20 (DRISDOL)] Fluticasone Nasal [place] [Flonase 2 spray EA NOSTRIL DAILY 04/12/20 04/23/20 Nasal [place]] Fluticasone Propionate [Flovent 2 puff INHALATION RT-BID 04/12/20 04/23/20 Diskus] Loperamide [Imodium] 2 mg PO QID PRN 04/12/20 04/23/20 Omeprazole 40 mg PO DAILY 04/12/20 04/23/20 Tamsulosin [Flomax] 0.4 mg PO DAILY 04/12/20 04/23/20 Allergies Allergy/AdvReac Type Severity Reaction Status Date / Time dicyclomine HCl [From Bentyl] Allergy Unknown Dyspnea Verified 04/23/20 23:42 latex Allergy Unknown Rash/Hives Verified 04/23/20 23:42 diphenhydramine HCl Allergy Anaphylaxis Verified 04/23/20 23:42 [From Benadryl] adhesive AdvReac Unknown Itching Verified 04/23/20 23:42 ciprofloxacin AdvReac Unknown Nausea Verified 04/23/20 23:42 Macrolide Antibiotics AdvReac Unknown Nausea Verified 04/23/20 23:42 sulfamethoxazole AdvReac Unknown Unknown Verified 04/23/20 23:42 [From Bactrim] trimethoprim [From Bactrim] AdvReac Unknown Unknown Verified 04/23/20 23:42 Review of Systems ROS Statement: Those systems with pertinent positive or pertinent negative responses have been documented in the HPI. ROS Other: All systems not noted in ROS Statement are negative. Constitutional: Denies: fever, chills Respiratory: Denies: cough, dyspnea Cardiovascular: Reports: chest pain. Denies: palpitations, orthopnea, edema, syncope Gastrointestinal: Reports: abdominal pain. Denies: nausea, vomiting, diarrhea, constipation, melena, hematochezia Genitourinary: Denies: dysuria, hematuria, testicular pain, testicular mass Musculoskeletal: Denies: back pain Skin: Denies: rash Neurological: Denies: headache, weakness, numbness EKG Findings - EKG Results: EKG: interpreted by ERMD, sinus rhythm, normal QRS, normal ST/T - Blocks, [place], Hypertrophy, ST Abn: QRS axis and voltage: left axis deviation (-30 to -90) Past Medical History Past Medical History: Asthma, Chest Pain / Angina, COPD, CVA/TIA, Diabetes Mellitus, GERD/Reflux, Hearing Disorder / Deafness, Hyperlipidemia, Hypertension, Liver Disease, Osteoarthritis (OA), Pneumonia, Seizure Disorder, Sleep Apnea/CPAP/BIPAP Additional Past Medical History / Comment(s): states CVA at 35 yrs old with left sided weakness- uses cane., states seizure at 35 yrs old., DDD- back & neck pain., carpal tunnel syndrome., Cyst on kidney, uses cpap., states having abdominal pain with diarrhea and nausea ., Lives with his sister and has [employer] public guardian. History of Any Multi-Drug Resistant Organisms: None Reported Past Surgical History: Heart Catheterization, Orthopedic Surgery Additional Past Surgical History / Comment(s): Cysts removed, left thumb surgery, colonoscopy 08/24/2019 Past Anesthesia/Blood Transfusion Reactions: Motion Sickness, Postoperative Nausea & Vomiting (PONV) Past Psychological History: Anxiety, Bipolar, Depression, Schizophrenia Smoking Status: Current every day smoker Past Alcohol Use History: Occasional Past Drug Use History: None Reported - Past Family History Brother(s) Family Medical History: Diabetes Mellitus Additional Family Medical History / Comment(s): Patient has 2 brothers. One from complications from diabetes. The second is alive with diabetes. Sister(s) Family Medical History: Cancer Additional Family Medical History / Comment(s): Patient has one sister with breast cancer. Patient does not have any children. Father Family Medical History: Cancer Additional Family Medical History / Comment(s): Father in his 40s or 50s from colon cancer. Mother Family Medical History: Cancer Additional Family Medical History / Comment(s): Mother at age 68 from lung cancer. General Exam Limitations: no limitations General appearance: alert, in no apparent distress Head exam: Present: atraumatic, normocephalic Eye exam: Present: normal appearance. Absent: scleral icterus, conjunctival injection ENT exam: Present: mucous membranes dry Neck exam: Present: normal inspection Respiratory exam: Present: normal lung sounds bilaterally. Absent: respiratory distress, wheezes, rales, rhonchi, stridor Cardiovascular Exam: Present: regular rate, normal rhythm, normal heart sounds. Absent: systolic murmur, diastolic murmur, rubs, gallop GI/Abdominal exam: Present: soft. Absent: distended, tenderness, guarding, rebound, rigid, mass Extremities exam: Present: normal inspection, normal capillary refill. Absent: pedal edema, calf tenderness Back exam: Present: normal inspection. Absent: CVA tenderness (R), CVA tenderness (L) Neurological exam: Present: alert Skin exam: Present: warm, dry, intact, normal color. Absent: rash Course Vital Signs 04/23/20 04/24/20 04/24/20 23:10 00:00 01:00 Temperature 98.3 F Pulse Rate 101 H 72 70 Respiratory 18 16 18 Rate Blood Pressure 164/96 133/89 139/102 O2 Sat by Pulse 98 95 Oximetry 04/24/20 04/24/20 04/24/20 02:00 03:00 03:09 Temperature 98.3 F Pulse Rate 70 64 67 Respiratory 16 16 16 Rate Blood Pressure 139/95 131/108 136/94 O2 Sat by Pulse 95 97 Oximetry Disposition Clinical Impression: Chest pain Disposition: ADMITTED IP TO THIS HOSP Condition: Fair
[2020-04-23] MEDS ORDERED: SODIUM CHLORIDE 0.9% 500 ML 500 ML IV STA (23:36)
--- NOTE | 2020-04-23 23:47 | XR ---
EXAMINATION TYPE: XR chest 2V DATE OF EXAM: 04/23/2020 COMPARISON: 02/25/2020 HISTORY: Chest pain TECHNIQUE: FINDINGS: Heart is normal. Lungs are clear of infiltrate. There is no heart failure. There are chest leads. Costophrenic angles are clear. Bony thorax is intact. IMPRESSION: No active cardiopulmonary disease. Normal heart. No change.
[2020-04-23 23:51] LABS: Appearance,Urine Clear (Clear); Basophils # (A) 0.1 k/uL (0-0.2); Basophils % (A) 1 %; Bilirubin,Urine Negative (Negative); Blood,Urine Negative (Negative); Color,Urine Colorless; Eosinophils # (A) 0.3 k/uL (0-0.7); Eosinophils % (A) 3 %; Glucose,Urine (UA) Negative (Negative); HCT 47.9 % (39.0-53.0); HGB 16.3 gm/dL (13.0-17.5); Ketones,Urine Negative (Negative); Leukocyte Esterase,Urine Negative (Negative); Lymphocytes # (A) 3.4 k/uL (1.0-4.8); Lymphocytes % (A) 28 %; MCH 29.6 pg (25.0-35.0); Mean Platelet Volume 7.3; Monocytes # (A) 0.6 k/uL (0-1.0); Monocytes % (A) 5 %; Neutrophils # (A) 7.4 k/uL (1.3-7.7); Neutrophils % (A) 62 %; Nitrite,Urine Negative (Negative); Platelet Count 238 k/uL (150-450); Protein,Urine Negative (Negative); RBC 5.51 m/uL (4.30-5.90); RDW 13.4 % (11.5-15.5); Specific Gravity,Urine 1.001 (1.001-1.035); Urobilinogen,Urine <2.0 mg/dL (<2.0)
[2020-04-24 00:03] LABS: ALT 74 U/L (4-49); AST 39 U/L (17-59); African American GFR (CKD) >90 (>60 ml/min/1.73 sqM); Albumin 4.4 g/dL (3.5-5.0); Alkaline Phosphatase 86 U/L (38-126); Amylase 46 U/L (30-110); Anion Gap 10 mmol/L; Blood Urea Nitrogen 12 mg/dL (9-20); Calcium 9.9 mg/dL (8.4-10.2); Carbon Dioxide 21 mmol/L (22-30); Chloride 108 mmol/L (98-107); Glucose 121 mg/dL (74-99); Lipase 115 U/L (23-300); Magnesium 1.7 mg/dL (1.6-2.3); Non-African American GFR(CKD) >90 (>60 ml/min/1.73 sqM); Sodium 139 mmol/L (137-145); Total Bilirubin 0.4 mg/dL (0.2-1.3); Total Protein 6.9 g/dL (6.3-8.2)
[2020-04-24 00:41] LABS: D-Dimer 0.46 mg/L FEU (<0.60); INR 0.9 (<1.2); Prothrombin Time 9.5 sec (9.0-12.0)
[2020-04-24 00:44] LABS: Partial Thromboplastin Time 21.9 sec (22.0-30.0)
[2020-04-24] MEDS ORDERED: MORPHINE SULFATE 4 MG/ML SYRINGE IV STA (01:07)
[2020-04-24] MEDS ORDERED: MAG HYDROX/AL HYDROX/SIMETH 30 ML, HYOSCYAMINE ELIXIR 10 ML, LIDOCAINE VISCOUS 2% 10 ML PO STA ×3 (01:56)
[2020-04-24] MEDS ORDERED: NITROGLYCERIN SL TABS 0.4 MG TAB SUBLINGUAL PRN (02:54)
[2020-04-24] MEDS ORDERED: SODIUM CHLORIDE 0.9% 1,000 ML IV SCH (03:00)
[2020-04-24 06:12] LABS: Glucose,Whole Blood 119 mg/dL (75-99)
[2020-04-24 07:44] LABS: Basophils % (A) 1 %; Eosinophils # (A) 0.3 k/uL (0-0.7); Eosinophils % (A) 3 %; HGB 15.6 gm/dL (13.0-17.5); Lymphocytes # (A) 2.1 k/uL (1.0-4.8); Lymphocytes % (A) 27 %; MCHC 34.1 g/dL (31.0-37.0); MCV 88.1 fL (80.0-100.0); Mean Platelet Volume 7.2; Monocytes # (A) 0.4 k/uL (0-1.0); Monocytes % (A) 5 %; Neutrophils # (A) 4.9 k/uL (1.3-7.7); Neutrophils % (A) 63 %; Platelet Count 211 k/uL (150-450); RBC 5.21 m/uL (4.30-5.90); RDW 13.4 % (11.5-15.5); WBC 7.8 k/uL (3.8-10.6)
[2020-04-24] MEDS: metFORMIN 500 MG TAB PO SCH ×2 (07:45→18:14)
[2020-04-24] MEDS: glipiZIDE 10 MG TAB PO SCH ×2 (07:45→18:14)
[2020-04-24 08:07] LABS: African American GFR (CKD) >90 (>60 ml/min/1.73 sqM); Anion Gap 6 mmol/L; Blood Urea Nitrogen 11 mg/dL (9-20); Carbon Dioxide 25 mmol/L (22-30); Chloride 110 mmol/L (98-107); Glucose 120 mg/dL (74-99); Non-African American GFR(CKD) >90 (>60 ml/min/1.73 sqM); Potassium 3.9 mmol/L (3.5-5.1); Sodium 141 mmol/L (137-145)
[2020-04-24] MEDS: FLUTICASONE 110 MCG INHALER INHALATION SCH ×2 (08:29→19:53)
[2020-04-24] MEDS: ALBUTEROL NEBULIZED 2.5 MG/3 ML INHALATION PRN ×2 (08:29→15:08)
[2020-04-24] MEDS ORDERED: PANTOPRAZOLE 40 MG TABLET PO SCH (09:00)
[2020-04-24] MEDS ORDERED: TAMSULOSIN 0.4 MG CAP.ER.24H PO SCH (09:00)
--- NOTE | 2020-04-24 09:14 | P.HPIM ---
History of Present Illness This is a pleasant 50 years old male with past medical history of diabetes mellitus, hypertension, hyperlipidemia, osteoarthritis, sleep apnea, seizure disorder, CVA/TIA with left hemiparesis, COPD, asthma, hearing difficulty, patie nt has a public guardian. He is a patient of Dr. partida. Patient presents because of right-sided chest pain of 2 days' duration, radiating to his stomach as patient states it is 10/10 in severity described as sharp, associated with little cough, pain is worse with movement and deep breath associated with nausea but no vomiting. Also patient has some epigastric tenderness. Also patient can benefit from periumbilical abdominal pain and early childhood worker diarrhea for years, this is suspicious for irritable bowel syndrome Patient smokes about 1 pack per day or more, his consult and he agrees to quit and he agrees to the nicotine patch. Occasional alcohol drinking, no illicit drugs. Vital signs stable. Mild Leukocytosis of 12.0 K, D-Dimer Is Negative at 0.46. BMP Is Unremarkable. Sugar Is Controlled. Liver Enzymes Not Elevated. Lipase is negative. Urinalysis Is Negative for Infection In the emergency room patient received 500 mL of normal saline boluses and IV morphine Review of Systems CONSTITUTIONAL: No fever, no malaise, no fatigue. HEENT: No recent visual problems or hearing problems. Denied any sore throat. CARDIOVASCULAR: No orthopnea, PND, no palpitations, no syncope. PULMONARY: No shortness of breath, no cough, no hemoptysis. GASTROINTESTINAL: No diarrhea, no nausea, no vomiting, no abdominal pain. Normoactive bowel sounds. NEUROLOGICAL: No headaches, no weakness, no numbness. HEMATOLOGICAL: Denies any bleeding or petechiae. GENITOURINARY: Denies any burning micturition, frequency, or urgency. MUSCULOSKELETAL/RHEUMATOLOGICAL: Denies any joint pain, swelling, or any muscle pain. ENDOCRINE: Denies any polyuria or polydipsia. 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 History of Any Multi-Drug Resistant Organisms: None Reported Past Surgical History: Heart Catheterization, Orthopedic Surgery Additional Past Surgical History / Comment(s): Cysts removed, left thumb surgery, colonoscopy 08/24/2019 Past Anesthesia/Blood Transfusion Reactions: Motion Sickness, Postoperative Nausea & Vomiting (PONV) Past Psychological History: Anxiety, Bipolar, Depression, Schizophrenia Additional Psychological History / Comment(s): Pt has a public legal guardian, lives with sister. goes to [employer]. Smoking Status: Current every day smoker Past Alcohol Use History: Occasional Additional Past Alcohol Use History / Comment(s): Pt started smoking in 1984 and is a 1-2ppd smoker. Past ETOH abuse. Past Drug Use History: None Reported Additional Drug Use History / Comment(s): pt denies any recreational drug use - Past Family History Brother(s) Family Medical History: Diabetes Mellitus Additional Family Medical History / Comment(s): Patient has 2 brothers. One from complications from diabetes. The second is alive with diabetes. Sister(s) Family Medical History: Cancer Additional Family Medical History / Comment(s): Patient has one sister with breast cancer. Patient does not have any children. Father Family Medical History: Cancer Additional Family Medical History / Comment(s): Father in his 40s or 50s from colon cancer. Mother Family Medical History: Cancer Additional Family Medical History / Comment(s): Mother at age 68 from lung cancer. Medications and Allergies Home Medications Medication Instructions Recorded Confirmed Type RX: ARIPiprazole [Abilify] 10 mg PO HS 01/19/19 04/23/20 History RX: OLANZapine [ZyPREXA] 10 mg PO HS 01/19/19 04/23/20 History RX: metFORMIN HCL 1,000 mg PO AC-BID 04/30/19 04/23/20 History RX: Loratadine 10 mg PO DAILY 08/22/19 04/23/20 History glipiZIDE [Glucotrol] 10 mg PO AC-BID 01/19/20 04/23/20 History Albuterol Sulfate [Proair Hfa] 2 puff INHALATION RT-Q6H PRN 02/21/20 04/23/20 History Acetaminophen Tab [Tylenol Tab] 500 - 1,000 mg PO Q6H PRN 04/12/20 04/23/20 History Chlorhexidine Gluconate [Peridex] 15 ml PO BID 04/12/20 04/23/20 History Dicyclomine [Bentyl] 20 mg PO QID 04/12/20 04/23/20 History Ergocalciferol [Vitamin D2] 50,000 unit PO MO 04/12/20 04/23/20 History Fluticasone Nasal [place] [Flonase 2 spray EA NOSTRIL DAILY 04/12/20 04/23/20 History Nasal [place]] Fluticasone Propionate [Flovent 2 puff INHALATION RT-BID 04/12/20 04/23/20 History Diskus] Loperamide [Imodium] 2 mg PO QID PRN 04/12/20 04/23/20 History RX: Omeprazole 40 mg PO DAILY 04/12/20 04/23/20 History Tamsulosin [Flomax] 0.4 mg PO DAILY 04/12/20 04/23/20 History Allergies Allergy/AdvReac Type Severity Reaction Status Date / Time dicyclomine HCl [From Bentyl] Allergy Unknown Dyspnea Verified 04/23/20 23:42 latex Allergy Unknown Rash/Hives Verified 04/23/20 23:42 diphenhydramine HCl Allergy Anaphylaxis Verified 04/23/20 23:42 [From Benadryl] adhesive AdvReac Unknown Itching Verified 04/23/20 23:42 ciprofloxacin AdvReac Unknown Nausea Verified 04/23/20 23:42 Macrolide Antibiotics AdvReac Unknown Nausea Verified 04/23/20 23:42 sulfamethoxazole AdvReac Unknown Unknown Verified 04/23/20 23:42 [From Bactrim] trimethoprim [From Bactrim] AdvReac Unknown Unknown Verified 04/23/20 23:42 Physical Exam Vitals: Vital Signs Temp Pulse Pulse Resp BP BP Pulse Ox 04/24/20 04:30 97.8 F 67 15 136/89 96 04/24/20 03:09 98.3 F 67 16 136/94 97 04/24/20 03:00 64 16 131/108 04/24/20 02:00 70 16 139/95 95 04/24/20 01:00 70 18 139/102 04/24/20 00:00 72 16 133/89 95 04/23/20 23:10 98.3 F 101 H 18 164/96 98 Intake and Output 04/23/20 04/24/20 04/24/20 22:59 06:59 14:59 Output Total 400 Balance -400 Output: Urine 400 Other: Voiding Method Urinal # Voids 1 Weight 90.718 kg GENERAL: The patient is alert and oriented x3, not in any acute distress. Well developed, well nourished. HEENT: Pupils are round and equally reacting to light. EOMI. No scleral icterus. No conjunctival pallor. Normocephalic, atraumatic. No pharyngeal erythema. No thyromegaly. CARDIOVASCULAR: S1 and S2 present. No murmurs, rubs, or gallops. -PULMONARY: Chest is clear to auscultation, no wheezing or crackles. Right chest wall tenderness -ABDOMEN: Soft, mild epigastric tenderness with no guarding or rebound tenderness, nondistended, normoactive bowel sounds. No palpable organomegaly. MUSCULOSKELETAL: No joint swelling or deformity. EXTREMITIES: No cyanosis, clubbing, or pedal edema. NEUROLOGICAL: Gross neurological examination did not reveal any focal deficits. SKIN: No rashes. No petechiae Results CBC & Chem 7: 04/24/20 07:32 04/24/20 07:32 Labs: Abnormal Lab Results - Last 24 Hours (Table) 04/23/20 04/23/20 04/23/20 Range/Units 23:28 23:34 23:34 WBC 12.0 H (3.8-10.6) k/uL APTT 21.9 L (22.0-30.0) sec Chloride (98-107) mmol/L Carbon Dioxide (22-30) mmol/L Glucose (74-99) mg/dL POC Glucose (mg/dL) 120 H (75-99) mg/dL ALT (4-49) U/L 04/23/20 04/24/20 Range/Units 23:34 06:10 WBC (3.8-10.6) k/uL APTT (22.0-30.0) sec Chloride 108 H (98-107) mmol/L Carbon Dioxide 21 L (22-30) mmol/L Glucose 121 H (74-99) mg/dL POC Glucose (mg/dL) 119 H (75-99) mg/dL ALT 74 H (4-49) U/L Thrombosis Risk Factor Assmnt - Choose All That Apply Each Factor Represents 1 point: Abnormal pulmonary function (COPD), Age 41-60 years, Obesity (BMI >25) Thrombosis Risk Factor Assessment Total Risk Factor Score: 3 Thrombosis Risk Factor Assessment Level: Moderate Risk Assessment and Plan Assessment: Chest pain with tenderness, rule out cardiac causes. D-dimer is negative Abdominal pain with nausea , rule out gallbladder disease, continue with PPI Possible Irritable bowel syndrome, with chronic abdominal pain and early childhood worker diarrhea Nicotine dependence Diabetes mellitus Hypertension Hyperlipidemia Osteoarthritis Sleep apnea Seizure disorder History of CVA with left hemiparesis Asthma/COPD, no connective tissue Hearing difficulty is public guardian Plan: This is a pleasant 50 years old male who presents because of chest pain and abdominal pain. Cardiology evaluation, serial troponin. We'll check liver ultrasound. We'll continue Bentyl and Protonix Labs and medication were reviewed.. Continue same treatment. Continue with symptomatic treatment. Resume home medication. Monitor lytes and vitals. DVT and GI prophylaxis. Further recommendations depends on the clinical course of the patient DVT prophylaxis: Subcutaneous heparin GI Prophylaxis: Ppi
[2020-04-24] MEDS: DICYCLOMINE 20 MG TAB PO SCH ×3 (09:16→18:14)
[2020-04-24] MEDS ORDERED: REGADENOSON 0.4 MG/5 ML SYRINGE IV ONE (09:19)
[2020-04-24] MEDS ORDERED: CAFFEINE CITRATE 60 MG/3 ML VIAL IV PRN (09:19)
[2020-04-24] MEDS ORDERED: AMINOPHYLLINE 500 MG/20 ML VIAL IV PRN (09:19)
--- NOTE | 2020-04-24 10:50 | P.CRDCN ---
History of Present Illness Consult date: 04/24/20 History of present illness: CHIEF COMPLAINT: Chest pain HISTORY OF PRESENT ILLNESS: This is a 50-year old male with a past medical history significant for COPD, diabetes, CVA, and seizure disorder. Patient follows in the office with Dr. Gonzalez. We have been asked to see the patient in consultation for chest pain. Patient states he has been having chest pain intermittently since this weekend. He reports the pain is in the midsternal region. He reports some right arm tingling as well. He states he has been feeling short of breath and feverish although he never took his temperature at home. He also reports nausea but denies any vomiting. 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 Patient also saw his primary care physician yesterday who advised him of the same so he came to the ER. Patient did have a cardiac catheterization performed in 2018 which revealed normal coronary arteries. DIAGNOSTICS: EKG reveals sinus rhythm with no signs of acute ischemia Chest xray no active cardiac pulmonary disease Laboratory data: WBC 7.8. Hemoglobin 15.6. Platelet count 211. D-dimer 0.46. Sodium 141. Potassium 3.9. BUN 11. Creatinine 0.68. Troponin negative 3 Current home cardiac medications include: none REVIEW OF SYSTEMS: At the time of my exam: CONSTITUTIONAL: Denies fever or chills. HEENT: Denies blurred vision, vision changes, or eye pain. Denies hemoptysis CARDIOVASCULAR: Denies chest pain, orthopnea, PND or palpitations RESPIRATORY: No shortness of breath. GASTROINTESTINAL: Denies abdominal pain. Denies nausea or vomiting. HEMATOLOGIC: Denies bleeding disorders. GENITOURINARY: Denies any blood in urine. SKIN: Denies pruitis. Denies rash. PHYSICAL EXAM: VITAL SIGNS: Reviewed. GENERAL: Well-developed in no acute distress. HEENT: Head is normocephalic. Pupils are equal, round. Sclerae anicteric. Mucous membranes of the mouth are moist. Neck supple. No JVD or thyromegaly LUNGS: Respirations even and unlabored. Lungs with expiratory wheezing noted. HEART: Regular rate and rhythm. S1 and S2 heard. ABDOMEN: Soft. Nondistended. Nontender. EXTREMITIES: Normal range of motion. No clubbing or cyanosis. Peripheral pulses intact. No lower extremity edema NEUROLOGIC: Awake and alert. Oriented x 3. ASSESSMENT: Chest pain COPD History of CVA Nicotine dependence, patient smokes 1 pack per day Obesity: BMI 34.3 PLAN: Smoking cessation recommended Obtain 2-D echo to assess cardiac structure and function Patient to undergo Lexiscan stress test today to assess for reversible ischemia Nurse practitioner note has been reviewed by physician. Signing provider agrees with the documented findings, assessment, and plan of care. 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 History of Any Multi-Drug Resistant Organisms: None Reported Past Surgical History: Heart Catheterization, Orthopedic Surgery Additional Past Surgical History / Comment(s): Cysts removed, left thumb surgery, colonoscopy 08/24/2019 Past Anesthesia/Blood Transfusion Reactions: Motion Sickness, Postoperative Nausea & Vomiting (PONV) Past Psychological History: Anxiety, Bipolar, Depression, Schizophrenia Additional Psychological History / Comment(s): Pt has a public legal guardian, lives with sister. goes to [facility]. Smoking Status: Current every day smoker Past Alcohol Use History: Occasional Additional Past Alcohol Use History / Comment(s): Pt started smoking in 1984 and is a 1-2ppd smoker. Past ETOH abuse. Past Drug Use History: None Reported Additional Drug Use History / Comment(s): pt denies any recreational drug use - Past Family History Brother(s) Family Medical History: Diabetes Mellitus Additional Family Medical History / Comment(s): Patient has 2 brothers. One from complications from diabetes. The second is alive with diabetes. Sister(s) Family Medical History: Cancer Additional Family Medical History / Comment(s): Patient has one sister with breast cancer. Patient does not have any children. Father Family Medical History: Cancer Additional Family Medical History / Comment(s): Father in his 40s or 50s from colon cancer. Mother Family Medical History: Cancer Additional Family Medical History / Comment(s): Mother at age 68 from lung cancer. Medications and Allergies Home Medications Medication Instructions Recorded Confirmed Type ARIPiprazole [Abilify] 10 mg PO HS 01/19/19 04/23/20 History OLANZapine [ZyPREXA] 10 mg PO HS 01/19/19 04/23/20 History metFORMIN HCL 1,000 mg PO AC-BID 04/30/19 04/23/20 History Loratadine 10 mg PO DAILY 08/22/19 04/23/20 History glipiZIDE [Glucotrol] 10 mg PO AC-BID 01/19/20 04/23/20 History Albuterol Sulfate [Proair Hfa] 2 puff INHALATION RT-Q6H PRN 02/21/20 04/23/20 History Acetaminophen Tab [Tylenol Tab] 500 - 1,000 mg PO Q6H PRN 04/12/20 04/23/20 History Chlorhexidine Gluconate [Peridex] 15 ml PO BID 04/12/20 04/23/20 History Dicyclomine [Bentyl] 20 mg PO QID 04/12/20 04/23/20 History Ergocalciferol [Vitamin D2] 50,000 unit PO MO 04/12/20 04/23/20 History Fluticasone Nasal [place] [Flonase 2 spray EA NOSTRIL DAILY 04/12/20 04/23/20 History Nasal [place]] Fluticasone Propionate [Flovent 2 puff INHALATION RT-BID 04/12/20 04/23/20 History Diskus] Loperamide [Imodium] 2 mg PO QID PRN 04/12/20 04/23/20 History Omeprazole 40 mg PO DAILY 04/12/20 04/23/20 History Tamsulosin [Flomax] 0.4 mg PO DAILY 04/12/20 04/23/20 History Allergies Allergy/AdvReac Type Severity Reaction Status Date / Time dicyclomine HCl [From Bentyl] Allergy Unknown Dyspnea Verified 04/23/20 23:42 latex Allergy Unknown Rash/Hives Verified 04/23/20 23:42 diphenhydramine HCl Allergy Anaphylaxis Verified 04/23/20 23:42 [From Benadryl] adhesive AdvReac Unknown Itching Verified 04/23/20 23:42 ciprofloxacin AdvReac Unknown Nausea Verified 04/23/20 23:42 Macrolide Antibiotics AdvReac Unknown Nausea Verified 04/23/20 23:42 sulfamethoxazole AdvReac Unknown Unknown Verified 04/23/20 23:42 [From Bactrim] trimethoprim [From Bactrim] AdvReac Unknown Unknown Verified 04/23/20 23:42 Physical Exam Vitals: Vital Signs Temp Pulse Pulse Resp BP BP Pulse Ox 04/24/20 08:41 65 04/24/20 08:32 77 04/24/20 04:30 97.8 F 67 15 136/89 96 04/24/20 03:09 98.3 F 67 16 136/94 97 04/24/20 03:00 64 16 131/108 04/24/20 02:00 70 16 139/95 95 04/24/20 01:00 70 18 139/102 04/24/20 00:00 72 16 133/89 95 04/23/20 23:10 98.3 F 101 H 18 164/96 98 Intake and Output 04/23/20 04/24/20 04/24/20 22:59 06:59 14:59 Output Total 400 Balance -400 Output: Urine 400 Other: Voiding Method Urinal # Voids 1 Weight 90.718 kg Results 04/24/20 07:32 04/24/20 07:32 Cardiac Enzymes 04/23/20 04/23/20 04/24/20 Range/Units 23:34 23:34 04:17 AST 39 (17-59) U/L Troponin I <0.012 <0.012 (0.000-0.034) ng/mL 04/24/20 Range/Units 07:32 AST (17-59) U/L Troponin I <0.012 (0.000-0.034) ng/mL Coagulation 04/23/20 Range/Units 23:34 PT 9.5 (9.0-12.0) sec APTT 21.9 L (22.0-30.0) sec CBC 04/23/20 04/24/20 Range/Units 23:34 07:32 WBC 12.0 H 7.8 (3.8-10.6) k/uL RBC 5.51 5.21 (4.30-5.90) m/uL Hgb 16.3 15.6 (13.0-17.5) gm/dL Hct 47.9 46.0 (39.0-53.0) % Plt Count 238 211 (150-450) k/uL Comprehensive Metabolic Panel 04/23/20 04/24/20 Range/Units 23:34 07:32 Sodium 139 141 (137-145) mmol/L Potassium 4.0 3.9 (3.5-5.1) mmol/L Chloride 108 H 110 H (98-107) mmol/L Carbon Dioxide 21 L 25 (22-30) mmol/L BUN 12 11 (9-20) mg/dL Creatinine 0.69 0.68 (0.66-1.25) mg/dL Glucose 121 H 120 H (74-99) mg/dL Calcium 9.9 9.0 (8.4-10.2) mg/dL AST 39 (17-59) U/L ALT 74 H (4-49) U/L Alkaline Phosphatase 86 (38-126) U/L Total Protein 6.9 (6.3-8.2) g/dL Albumin 4.4 (3.5-5.0) g/dL Current Medications Generic Name Dose Route Start Last Admin Trade Name Freq PRN Reason Stop Dose Admin Albuterol Sulfate 2.5 mg 04/24/20 02:57 04/24/20 08:29 Albuterol Nebulized 2.5 Mg/3 Ml INHALATION 2.5 mg RT-Q6H PRN Administration Shortness Of Breath Aminophylline 100 mg 04/24/20 09:19 Aminophylline 500 Mg/20 Ml Vial IV ONCE PRN Patient Response Aripiprazole 10 mg 04/24/20 21:00 Aripiprazole 10 Mg Tab PO HS PJ Aspirin 81 mg 04/25/20 09:00 Aspirin 81 Mg PO DAILY PJ Caffeine Citrate 60 mg 04/24/20 09:19 Caffeine Citrate 60 Mg/3 Ml Vial IV ONCE PRN Patient Response Dicyclomine HCl 20 mg 04/24/20 09:00 04/24/20 09:16 Dicyclomine 20 Mg Tab PO 20 mg QID PJ Administration Ergocalciferol 50,000 unit 04/29/20 09:00 Ergocalciferol 50,000 Unit Cap PO Mo@0900 [facility] Fluticasone Propionate 2 puff 04/24/20 08:00 04/24/20 08:29 Fluticasone 110 Mcg Inhaler INHALATION 2 puff RT-BID PJ Administration Glipizide 10 mg 04/24/20 07:30 Glipizide 10 Mg Tab PO AC-BID PJ Sodium Chloride 1,000 mls @ 20 mls/hr 04/24/20 03:00 04/24/20 04:21 Saline 0.9% IV 20 mls/hr .Q24H PJ Administration Metformin HCl 1,000 mg 04/24/20 07:30 Metformin 500 Mg Tab PO AC-BID PJ Nitroglycerin 0.4 mg 04/24/20 02:54 Nitroglycerin Sl Tabs 0.4 Mg Tab SUBLINGUAL Q5M PRN Chest Pain Olanzapine 10 mg 04/24/20 21:00 Olanzapine 10 Mg Tab PO HS PJ Pantoprazole Sodium 40 mg 04/24/20 09:00 04/24/20 09:16 Pantoprazole 40 Mg Tablet PO 40 mg DAILY PJ Administration Tamsulosin HCl 0.4 mg 04/24/20 09:00 04/24/20 09:16 Tamsulosin 0.4 Mg Cap.Er.24h PO 0.4 mg DAILY PJ Administration Intake and Output 04/23/20 04/24/20 04/24/20 22:59 06:59 14:59 Output Total 400 Balance -400 Output: Urine 400 Other: Voiding Method Urinal # Voids 1 Weight 90.718 kg 04/24/20 07:32 04/24/20 07:32
[2020-04-24 11:29] VITALS: RESP 16; TEMP 98
--- NOTE | 2020-04-24 11:54 | US ---
EXAMINATION TYPE: US liver DATE OF EXAM: 04/24/2020 COMPARISON: NONE CLINICAL HISTORY: Epigastric pain. Abd pain with nausea EXAM MEASUREMENTS: Liver Length: 18.8 cm Gallbladder Wall: 0.2 cm CBD: 0.7 cm Right Kidney: 11.4 X 4.8 X 5.5 cm Pancreas: wnl Liver: difficult to penetrate, upper limits of normal for size Gallbladder: wnl Evidence for sonographic Durán's sign: no CBD: wnl Right Kidney: cystic areas seen , largest = 1.8 x 1.8 x 1.7cm IMPRESSION: 1. Hepatomegaly with mild fatty infiltration of the liver. 2. Right renal cyst
--- NOTE | 2020-04-24 12:15 | P.STRESS ---
- Stress Test Note Stress Test Results/Findings: Exam Performed: NM stress lexiscan cardiolite Exam Date: 04/24/20 Reason for Exam: Chest Pain Height: 5 ft 4 in Weight: 90.72 kg Protocol: Lexiscan Stage: NA Duration of Exercise: NA Resting Heart Rate: 59 Resting Blood Pressure: 116/88 Maximum Achieved Heart Rate: 97 Maximum Achieved Blood Pressure: 128/74 85% PMHR: 144 100% PMHR: 168 METS: NA Technologist Comment: Stress Test Results/Findings: This is a 50-year-old gentleman with history of chest pains, diabetes, history of previous CVA and hypercholesterolemia being evaluated for cardiac status. Patient also has history of smoking. His chest pains are atypical. Stress data: Baseline EKG showed sinus rhythm with normal [place] interval and QRS duration. Blood pressure at rest is 116/88, pulse rate 59.. A standard dose of Lexiscan was infused. EKGs taken during and after infusion did not reveal any changes of ischemia. Final impression: #1. Negative Lexiscan stress test #2. Report on echo images to be provided by radiologist
--- NOTE | 2020-04-24 12:35 | NM ---
EXAMINATION TYPE: NM stress lexiscan cardiolite DATE OF EXAM: 04/24/2020 COMPARISON: Prior stress test October 27, 2017 HISTORY: History of stroke, diabetes, tobacco use, COPD, prior catheterization, and hypercholesterole david presents with chest pain, difficulty breathing, and palpitations. TECHNIQUE: After the intravenous administration of 9.2 mCi Tc 99m Sestamibi - Cardiolite resting SPE CT images acquired 45 minutes post injection. The patient received 0.4mg Lexiscan, 26.4 mCi Tc 99m Sestamibi - Stress images obtained [address] injection FINDINGS: Review of stress and rest SPECT images demonstrates no distinct perfusion abnormality. Gated analysi s shows normal wall motion with an estimated left ventricular ejection fraction of 56 %. IMPRESSION: No scintigraphic evidence for reversible ischemia on today's study.
--- NOTE | 2020-04-24 13:18 | EST ---
Stress Test Results/Findings: Exam Performed: NM stress lexiscan cardiolite Exam Date: 04/24/20 Reason for Exam: Chest Pain Height: 5 ft 4 in Weight: 90.72 kg Protocol: Lexiscan Stage: NA Duration of Exercise: NA Resting Heart Rate: 59 Resting Blood Pressure: 116/88 Maximum Achieved Heart Rate: 97 Maximum Achieved Blood Pressure: 128/74 85% PMHR: 144 100% PMHR: 168 METS: NA Technologist Comment: Stress Test Results/Findings: This is a 50-year-old gentleman with history of chest pains, diabetes, history of previous CVA and hypercholesterolemia being evaluated for cardiac status. Patient also has history of smoking. His chest pains are atypical. Stress data: Baseline EKG showed sinus rhythm with normal [place] interval and QRS duration. Blood pressure at rest is 116/88, pulse rate 59.. A standard dose of Lexiscan was infused. EKGs taken during and after infusion did not reveal any changes of ischemia. Final impression: #1. Negative Lexiscan stress test #2. Report on echo images to be provided by radiologist MARKOS
[2020-04-24] MEDS ORDERED: HYDROcodone/APAP 5-325MG 1 EACH TAB PO STA (14:29)
[2020-04-24 16:08] VITALS: BP 124/79; PULSE 60
[2020-04-24 17:51] LABS: Glucose,Whole Blood 135 mg/dL (75-99)
[2020-04-24] MEDS ORDERED: ARIPiprazole 10 MG TAB PO SCH (21:00)
[2020-04-24] MEDS ORDERED: OLANZapine 10 MG TAB PO SCH (21:00)
[2020-04-25] MEDS ORDERED: ASPIRIN 81 MG PO SCH (09:00)
[2020-04-25] MEDS ORDERED: ASPIRIN 325 MG TAB PO SCH (09:00)
--- NOTE | 2020-04-25 10:00 | ECHOF ---
Referral Reason:lv function, chest pain MEASUREMENTS -------- HEIGHT: 162.6 cm WEIGHT: 90.7 kg BP: 136/89 RVIDd: 3.3 cm (< 3.3) IVSd: 1.2 cm (0.6 - 1.1) LVIDd: 5.0 cm (3.9 - 5.3) LVPWd: 1.3 cm (0.6 - 1.1) IVSs: 1.7 cm LVIDs: 3.8 cm LVPWs: 1.9 cm LA Diam: 3.3 cm (2.7 - 3.8) LAESV Index (A-L): 25.45 ml/m Ao Diam: 3.6 cm (2.0 - 3.7) AV Cusp: 2.1 cm (1.5 - 2.6) MV EXCURSION: 15.965 mm (> 18.000) MV EF SLOPE: 123 mm/s (70 - 150) EPSS: 0.8 cm MV E Elias: 1.00 m/s MV DecT: 210 ms MV A Elias: 0.85 m/s MV E/A Ratio: 1.17 RAP: 5.00 mmHg RVSP: 27.74 mmHg FINDINGS -------- Sinus rhythm. This was a technically adequate study. The left ventricular size is normal. There is mild concentric left ventricular hypertrophy. Overa ll left ventricular systolic function is normal with, an EF between 60 - 65 %. The right ventricle is mildly enlarged. Normal LA size by volume 22+/-6 ml/m2. The right atrium is normal in size. Interatrial and interventricular septum intact. The aortic valve is trileaflet and appears structurally normal. The mitral valve is normal. Mild tricuspid regurgitation present. Right ventricular systolic pressure is normal at < 35 mmHg. Trace/mild (physiologic) pulmonic regurgitation. The aortic root size is normal. Normal inferior vena cava with normal inspiratory collapse consistent with estimated right atrial pre ssure of 5 mmHg. There is no pericardial effusion. CONCLUSIONS -------- 1. The left ventricular size is normal. 2. There is mild concentric left ventricular hypertrophy. 3. Overall left ventricular systolic function is normal with, an EF between 60 - 65 %. 4. The right ventricle is mildly enlarged. 5. Normal LA size by volume 22+/-6 ml/m2. 6. Mild tricuspid regurgitation present. 7. Trace/mild (physiologic) pulmonic regurgitation. 8. There is no pericardial effusion. BOOKKEEPING SERVICE SALES AGENT: Nena Morelos RDCS
[2020-04-25 15:17] LABS: Hemoglobin A1C 6.8 % (4.0-6.0)
[2020-04-29] MEDS ORDERED: ERGOCALCIFEROL 50,000 UNIT CAP PO SCH (09:00)
== END 2020-04-24 20:48 | disposition home or self-care (01) ==
LOC: EC 23:09 → 3NCARDOBS 04-24 02:54
PROVIDERS: ADMIT Hospitalist; ATTEND Hospitalist
DX: R07.9 Chest pain, unspecified (principal); E11.9 Type 2 diabetes mellitus without complications; E66.9 Obesity, unspecified; E78.5 Hyperlipidemia, unspecified; F10.10 Alcohol abuse, uncomplicated; F17.210 Nicotine dependence, cigarettes, uncomplicated; F20.9 Schizophrenia, unspecified; F31.9 Bipolar disorder, unspecified; F41.9 Anxiety disorder, unspecified; G40.909 Epilepsy, unspecified, not intractable, without status epilepticus; G47.30 Sleep apnea, unspecified; H91.90 Unspecified hearing loss, unspecified ear; I10 Essential (primary) hypertension; I69.354 Hemiplegia and hemiparesis following cerebral infarction affecting left non-dominant side; J44.9 Chronic obstructive pulmonary disease, unspecified; R11.0 Nausea; R20.2 Paresthesia of skin; K76.0 Fatty (change of) liver, not elsewhere classified; M19.90 Unspecified osteoarthritis, unspecified site; Z68.34 Body mass index [BMI] 34.0-34.9, adult; Z79.51 Long term (current) use of inhaled steroids; Z79.84 Long term (current) use of oral hypoglycemic drugs; Z79.899 Other long term (current) drug therapy; Z80.1 Family history of malignant neoplasm of trachea, bronchus and lung; Z83.3 Family history of diabetes mellitus
CPT/HCPCS: 96374; 99285; 36415; 94640 ×2; 93005; 93017; 93306; 85379; 80053; 80048; 82150; 83690; 83735; 84484 ×2; 85025 ×2; 85610; 85730; 81003; 83036; 84145; 71046; 76705; 78452; G0378; A9500; J2270; J2785

== ENCOUNTER 2020-05-23 22:07 | Emergency (ER) | payer MEDICARE, OTHER ==
[2020-05-23] MEDS ORDERED: ASPIRIN 81 MG PO STA (22:32)
--- NOTE | 2020-05-23 22:32 | ED ---
Chest Pain HPI - General Chief Complaint: Chest Pain Stated Complaint: Chest Pain Time Seen by Provider: 05/23/20 22:20 Source: patient Mode of arrival: wheelchair Limitations: no limitations - History of Present Illness MD Complaint: chest pain -: hour(s) (36) Onset: during rest Pain Location: substernal Pain Radiation: LUE Severity: moderate Quality: dull Consistency: constant Improves With: nothing Worsens With: nothing Treatments Prior to Arrival: none - Related Data Home Medications Medication Instructions Recorded Confirmed ARIPiprazole [Abilify] 10 mg PO HS 01/19/19 04/23/20 OLANZapine [ZyPREXA] 10 mg PO HS 01/19/19 04/23/20 metFORMIN HCL 1,000 mg PO AC-BID 04/30/19 04/23/20 Loratadine 10 mg PO DAILY 08/22/19 04/23/20 glipiZIDE [Glucotrol] 10 mg PO AC-BID 01/19/20 04/23/20 Albuterol Sulfate [Proair Hfa] 2 puff INHALATION RT-Q6H PRN 02/21/20 04/23/20 Acetaminophen Tab [Tylenol] 500 - 1,000 mg PO Q6H PRN 04/12/20 04/23/20 Chlorhexidine Gluconate [Peridex] 15 ml PO BID 04/12/20 04/23/20 Dicyclomine [Bentyl] 20 mg PO QID 04/12/20 04/23/20 Ergocalciferol [Vitamin D2 50,000 unit PO MO 04/12/20 04/23/20 (DRISDOL)] Fluticasone Nasal [place] [Flonase 2 spray EA NOSTRIL DAILY 04/12/20 04/23/20 Nasal [place]] Fluticasone Propionate [Flovent 2 puff INHALATION RT-BID 04/12/20 04/23/20 Diskus] Loperamide [Imodium] 2 mg PO QID PRN 04/12/20 04/23/20 Omeprazole 40 mg PO DAILY 04/12/20 04/23/20 Tamsulosin [Flomax] 0.4 mg PO DAILY 04/12/20 04/23/20 Allergies Allergy/AdvReac Type Severity Reaction Status Date / Time dicyclomine HCl [From Bentyl] Allergy Unknown Dyspnea Verified 05/23/20 22:18 latex Allergy Unknown Rash/Hives Verified 05/23/20 22:18 diphenhydramine HCl Allergy Anaphylaxis Verified 05/23/20 22:18 [From Benadryl] adhesive AdvReac Unknown Itching Verified 05/23/20 22:18 ciprofloxacin AdvReac Unknown Nausea Verified 05/23/20 22:18 Macrolide Antibiotics AdvReac Unknown Nausea Verified 05/23/20 22:18 sulfamethoxazole AdvReac Unknown Unknown Verified 05/23/20 22:18 [From Bactrim] trimethoprim [From Bactrim] AdvReac Unknown Unknown Verified 05/23/20 22:18 Review of Systems ROS Statement: Those systems with pertinent positive or pertinent negative responses have been documented in the HPI. ROS Other: All systems not noted in ROS Statement are negative. Constitutional: Denies: fever, chills Respiratory: Denies: cough, dyspnea, hemoptysis Cardiovascular: Reports: chest pain. Denies: palpitations, orthopnea, edema, syncope Gastrointestinal: Denies: abdominal pain, nausea, vomiting, diarrhea, constipation Genitourinary: Denies: dysuria, hematuria Musculoskeletal: Denies: back pain Skin: Denies: rash Neurological: Denies: headache, weakness, numbness EKG Findings - EKG Results: EKG: interpreted by [place], sinus rhythm (Rate 67 bpm), normal axis, normal QRS, normal ST/T, no acute changes Past Medical History Past Medical History: Asthma, Chest Pain / Angina, COPD, CVA/TIA, Diabetes Mellitus, GERD/Reflux, Hearing Disorder / Deafness, Hyperlipidemia, Hyp ertension, Liver Disease, Osteoarthritis (OA), Pneumonia, Seizure Disorder, Sleep Apnea/CPAP/BIPAP Additional Past Medical History / Comment(s): states CVA at 35 yrs old with left sided weakness- uses cane., states seizure at 35 yrs old., DDD- back & neck pain., carpal tunnel syndrome., Cyst on kidney, uses cpap., states having abdominal pain with diarrhea and nausea ., Lives with his sister and has [employer] public guardian. History of Any Multi-Drug Resistant Organisms: None Reported Past Surgical History: Heart Catheterization, Orthopedic Surgery Additional Past Surgical History / Comment(s): Cysts removed, left thumb surgery, colonoscopy 08/24/2019 Past Anesthesia/Blood Transfusion Reactions: Motion Sickness, Postoperative Nausea & Vomiting (PONV) Past Psychological History: Anxiety, Bipolar, Depression, Schizophrenia Smoking Status: Current every day smoker Past Alcohol Use History: Occasional Past Drug Use History: None Reported - Past Family History Brother(s) Family Medical History: Diabetes Mellitus Additional Family Medical History / Comment(s): Patient has 2 brothers. One from complications from diabetes. The second is alive with diabetes. Sister(s) Family Medical History: Cancer Additional Family Medical History / Comment(s): Patient has one sister with breast cancer. Patient does not have any children. Father Family Medical History: Cancer Additional Family Medical History / Comment(s): Father in his 40s or 50s from colon cancer. Mother Family Medical History: Cancer Additional Family Medical History / Comment(s): Mother at age 68 from lung cancer. General Exam Limitations: no limitations General appearance: alert, in no apparent distress Head exam: Present: atraumatic, normocephalic Eye exam: Present: normal appearance. Absent: scleral icterus, conjunctival injection ENT exam: Present: mucous membranes dry Neck exam: Present: normal inspection, full ROM Respiratory exam: Present: wheezes (Trace expiratory wheeze). Absent: respiratory distress, rales, rhonchi, stridor, chest wall tenderness, accessory muscle use, decreased breath sounds, prolonged expiratory Cardiovascular Exam: Present: regular rate, normal rhythm, normal heart sounds. Absent: systolic murmur, diastolic murmur, rubs, gallop GI/Abdominal exam: Present: soft. Absent: distended, tenderness, guarding, rebound, rigid, mass Extremities exam: Present: normal inspection, normal capillary refill. Absent: pedal edema, calf tenderness Back exam: Present: normal inspection. Absent: CVA tenderness (R), CVA tenderness (L) Neurological exam: Present: alert Skin exam: Present: warm, dry, intact, normal color. Absent: rash Course Vital Signs 05/23/20 22:14 Temperature 98.6 F Pulse Rate 73 Respiratory 18 Rate Blood Pressure 137/87 O2 Sat by Pulse 99 Oximetry Disposition Clinical Impression: Chest pain Disposition: HOME SELF-CARE Condition: Good Instructions (If sedation given, give patient instructions): Chest Pain (ED) Is patient prescribed a controlled substance at d/c from ED?: No Referrals: Ramya Saul MD [Primary Care Provider] - 1-2 days
[2020-05-23 22:48] LABS: Basophils # (A) 0.1 k/uL (0-0.2); Basophils % (A) 1 %; Eosinophils # (A) 0.3 k/uL (0-0.7); Eosinophils % (A) 5 %; HCT 40.6 % (39.0-53.0); HGB 14.3 gm/dL (13.0-17.5); Lymphocytes # (A) 1.5 k/uL (1.0-4.8); Lymphocytes % (A) 23 %; MCHC 35.2 g/dL (31.0-37.0); MCV 85.2 fL (80.0-100.0); Mean Platelet Volume 7.5; Monocytes # (A) 0.4 k/uL (0-1.0); Monocytes % (A) 6 %; Neutrophils # (A) 4.3 k/uL (1.3-7.7); Neutrophils % (A) 64 %; Platelet Count 179 k/uL (150-450); RBC 4.76 m/uL (4.30-5.90); RDW 13.5 % (11.5-15.5); WBC 6.7 k/uL (3.8-10.6)
[2020-05-23 22:59] LABS: INR 0.9 (<1.2); Partial Thromboplastin Time 22.7 sec (22.0-30.0); Prothrombin Time 9.8 sec (9.0-12.0)
[2020-05-23 23:02] LABS: ALT 94 U/L (4-49); AST 42 U/L (17-59); African American GFR (CKD) >90 (>60 ml/min/1.73 sqM); Albumin 3.7 g/dL (3.5-5.0); Alkaline Phosphatase 66 U/L (38-126); Anion Gap 5 mmol/L; Blood Urea Nitrogen 12 mg/dL (9-20); Calcium 9.5 mg/dL (8.4-10.2); Carbon Dioxide 23 mmol/L (22-30); Chloride 110 mmol/L (98-107); Glucose 163 mg/dL (74-99); Magnesium 1.6 mg/dL (1.6-2.3); Non-African American GFR(CKD) 78 (>60 ml/min/1.73 sqM); Potassium 4.1 mmol/L (3.5-5.1); Sodium 138 mmol/L (137-145); Total Bilirubin 0.4 mg/dL (0.2-1.3)
[2020-05-23] MEDS ORDERED: SODIUM CHLORIDE 0.9% 1,000 ML IV ONE (23:17)
--- NOTE | 2020-05-23 23:19 | XR ---
EXAMINATION TYPE: XR chest 2V DATE OF EXAM: 05/23/2020 COMPARISON: 04/23/2020 HISTORY: Chest pain TECHNIQUE: 2 views FINDINGS: There is no heart failure nor confluent pneumonic infiltrate. Costophrenic angles are clear . There are chest leads. Bony thorax is intact. IMPRESSION: No active cardiopulmonary disease. Normal heart. No change.
[2020-05-23] MEDS ORDERED: HYDROcodone/APAP 5-325MG 1 EACH TAB PO STA (23:45)
[2020-05-24 00:05] VITALS: BP 123/77; PULSE 71; RESP 16; TEMP 98.9
== END 2020-05-24 00:04 | disposition home or self-care (01) ==
LOC: EC 22:07
DX: R07.9 Chest pain, unspecified (principal); J44.9 Chronic obstructive pulmonary disease, unspecified; H91.90 Unspecified hearing loss, unspecified ear; G47.30 Sleep apnea, unspecified; K21.9 Gastro-esophageal reflux disease without esophagitis; E11.9 Type 2 diabetes mellitus without complications; F32.9 Major depressive disorder, single episode, unspecified; F20.9 Schizophrenia, unspecified; F17.200 Nicotine dependence, unspecified, uncomplicated; Z79.84 Long term (current) use of oral hypoglycemic drugs; Z79.899 Other long term (current) drug therapy; Z79.51 Long term (current) use of inhaled steroids; Z88.8 Allergy status to other drugs, medicaments and biological substances; Z91.040 Latex allergy status; Z91.048 Other nonmedicinal substance allergy status; Z88.1 Allergy status to other antibiotic agents; Z88.2 Allergy status to sulfonamides; Z99.89 Dependence on other enabling machines and devices; Z86.73 Personal history of transient ischemic attack (TIA), and cerebral infarction without residual deficits
CPT/HCPCS: 36415; 71046; 80053; 83735; 84484; 85025; 85610; 85730; 93005; 96360; 99285

== ENCOUNTER 2020-05-26 15:47 | Emergency (ER) | payer MEDICARE, OTHER ==
[2020-05-26 15:54] VITALS: TEMP 98.4
[2020-05-26] MEDS ORDERED: ACETAMINOPHEN TAB 500 MG TAB PO STA (16:14)
[2020-05-26] MEDS ORDERED: MAG HYDROX/AL HYDROX/SIMETH 30 ML, HYOSCYAMINE ELIXIR 10 ML PO STA ×2 (16:14)
--- NOTE | 2020-05-26 16:22 | ED ---
General Adult HPI - General Chief complaint: Chest Pain Stated complaint: Chest Pain Time Seen by Provider: 05/26/20 15:55 Source: patient Mode of arrival: wheelchair Limitations: no limitations - History of Present Illness Initial comments: 50-year-old male presenting to the emergency department multiple chief complaints. Patient reports he has chronic back pain and now he is in acute exacerbation is started earlier this morning. States the pain is located in the lumbosacral region with occasional radiation to the right lower extremity. He reports the pain exacerbated with any movement, particularly walking. He also reports some chest pain that is when I went over the past few days. States he feels sharp and dull at the same time with occasional radiation to the right shoulder. Denies any associated shortness of breath, lightheadedness, is in his or diaphoretic episodes. States he also feels that his abdomen is bloated. He believes this is secondary to his GERD. He also reports some generalized joint pains which she believes are secondary to his arthritis. Patient states he had a full cardiac workup about 2 months ago including an echocardiogram and stress test which was unremarkable. Denies saddle anesthesia, urinary retention with overflow incontinence or bowel incontinence. - Related Data Home Medications Medication Instructions Recorded Confirmed ARIPiprazole [Abilify] 10 mg PO HS 01/19/19 04/23/20 OLANZapine [ZyPREXA] 10 mg PO HS 01/19/19 04/23/20 metFORMIN HCL 1,000 mg PO AC-BID 04/30/19 04/23/20 Loratadine 10 mg PO DAILY 08/22/19 04/23/20 glipiZIDE [Glucotrol] 10 mg PO AC-BID 01/19/20 04/23/20 Albuterol Sulfate [Proair Hfa] 2 puff INHALATION RT-Q6H PRN 02/21/20 04/23/20 Acetaminophen Tab [Tylenol] 500 - 1,000 mg PO Q6H PRN 04/12/20 04/23/20 Chlorhexidine Gluconate [Peridex] 15 ml PO BID 04/12/20 04/23/20 Dicyclomine [Bentyl] 20 mg PO QID 04/12/20 04/23/20 Ergocalciferol [Vitamin D2 50,000 unit PO MO 04/12/20 04/23/20 (DRISDOL)] Fluticasone Nasal [place] [Flonase 2 spray EA NOSTRIL DAILY 04/12/20 04/23/20 Nasal [place]] Fluticasone Propionate [Flovent 2 puff INHALATION RT-BID 04/12/20 04/23/20 Diskus] Loperamide [Imodium] 2 mg PO QID PRN 04/12/20 04/23/20 Omeprazole 40 mg PO DAILY 04/12/20 04/23/20 Tamsulosin [Flomax] 0.4 mg PO DAILY 04/12/20 04/23/20 Allergies Allergy/AdvReac Type Severity Reaction Status Date / Time dicyclomine HCl [From Bentyl] Allergy Unknown Dyspnea Verified 05/26/20 15:54 latex Allergy Unknown Rash/Hives Verified 05/26/20 15:54 diphenhydramine HCl Allergy Anaphylaxis Verified 05/26/20 15:54 [From Benadryl] adhesive AdvReac Unknown Itching Verified 05/26/20 15:54 ciprofloxacin AdvReac Unknown Nausea Verified 05/26/20 15:54 Macrolide Antibiotics AdvReac Unknown Nausea Verified 05/26/20 15:54 sulfamethoxazole AdvReac Unknown Unknown Verified 05/26/20 15:54 [From Bactrim] trimethoprim [From Bactrim] AdvReac Unknown Unknown Verified 05/26/20 15:54 Review of Systems ROS Statement: Those systems with pertinent positive or pertinent negative responses have been documented in the HPI. ROS Other: All systems not noted in ROS Statement are negative. 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 History of Any Multi-Drug Resistant Organisms: None Reported Past Surgical History: Heart Catheterization, Orthopedic Surgery Additional Past Surgical History / Comment(s): Cysts removed, left thumb surgery, colonoscopy 08/24/2019 Past Anesthesia/Blood Transfusion Reactions: Motion Sickness, Postoperative Nausea & Vomiting (PONV) Past Psychological History: Anxiety, Bipolar, Depression, Schizophrenia Smoking Status: Current every day smoker Past Alcohol Use History: Occasional Past Drug Use History: None Reported - Past Family History Brother(s) Family Medical History: Diabetes Mellitus Additional Family Medical History / Comment(s): Patient has 2 brothers. One from complications from diabetes. The second is alive with diabetes. Sister(s) Family Medical History: Cancer Additional Family Medical History / Comment(s): Patient has one sister with breast cancer. Patient does not have any children. Father Family Medical History: Cancer Additional Family Medical History / Comment(s): Father in his 40s or 50s from colon cancer. Mother Family Medical History: Cancer Additional Family Medical History / Comment(s): Mother at age 68 from lung cancer. General Exam Limitations: no limitations General appearance: alert, in no apparent distress, obese Head exam: Present: atraumatic, normocephalic, normal inspection Eye exam: Present: normal appearance, PERRL, EOMI Pupils: Present: normal accommodation ENT exam: Present: normal exam, normal oropharynx, mucous membranes moist, TM's normal bilaterally, normal external ear exam Neck exam: Present: normal inspection, full ROM. Absent: tenderness, lymphadenopathy Respiratory exam: Present: normal lung sounds bilaterally. Absent: respiratory distress, wheezes, rales, rhonchi, stridor Cardiovascular Exam: Present: regular rate, normal rhythm, normal heart sounds. Absent: systolic murmur, diastolic murmur GI/Abdominal exam: Present: soft. Absent: distended, tenderness, guarding, rebound, rigid Extremities exam: Present: normal inspection, full ROM, normal capillary refill, other (+2 ulnar and radial pulses bilateral.). Absent: tenderness, pedal edema, joint swelling, calf tenderness Back exam: Present: normal inspection, full ROM. Absent: tenderness, CVA tenderness (R), CVA tenderness (L) Neurological exam: Present: alert, oriented X3, normal gait Psychiatric exam: Present: normal affect, normal mood Skin exam: Present: warm, dry, intact, normal color Course Vital Signs 05/26/20 05/26/20 05/26/20 15:52 16:05 17:18 Temperature 98.4 F Pulse Rate 77 70 Pulse Rate [ 77 [place] ] Respiratory 19 20 18 Rate Blood Pressure 135/87 128/77 O2 Sat by Pulse 100 100 Oximetry EKG Findings - EKG Comments: EKG Findings:: Sinus rhythm. Incomplete right bundle branch block. Ventricular rate 63, OH 134, QRS 106, QTC 427. Medical Decision Making - Medical Decision Making 50-year-old male presenting to the emergency department with multiple chief complaints. Patient is well-known to the emergency department for his frequent visits. Patient was evaluated 2 days ago for the same chest pain that he is still complaining of now. He had a negative workup. EKG showing no significant changes compared to his most recent EKG. Chest x-ray is unremarkable. Patient was given Toradol for his pain per his request. Patient was also given some Tylenol and a GI cocktail due to his GERD symptoms. On reevaluation, patient reports improvement of symptoms. Strict return parameters were thoroughly discussed patient was understanding and agreeable. Case was discussed with who recommended this treatment course for the patient and cleared him for discharge. Disposition Clinical Impression: Chest pain, Back pain Disposition: HOME SELF-CARE Condition: Stable Instructions (If sedation given, give patient instructions): Chest Pain (ED) Additional Instructions: Follow with the primary care physician. Return to emergency department if symptoms worsen. Is patient prescribed a controlled substance at d/c from ED?: No Referrals: Ramya Saul MD [Primary Care Provider] - 1-2 days Time of Disposition: 17:14
--- NOTE | 2020-05-26 16:57 | XR ---
EXAMINATION TYPE: XR chest 2V DATE OF EXAM: 05/26/2020 COMPARISON: 05/23/2020 HISTORY: Chest pain. COPD TECHNIQUE: FINDINGS: Heart is normal. Lungs are clear. Costophrenic angles are clear. There are no hilar masses. Bony thorax is intact. There are chest leads. IMPRESSION: Normal chest. No change.
[2020-05-26] MEDS ORDERED: KETOROLAC 15 MG/ML 1 ML VIAL IVP STA (17:13)
[2020-05-26 17:19] VITALS: BP 128/77; PULSE 70; RESP 18
== END 2020-05-26 17:18 | disposition home or self-care (01) ==
LOC: EC 15:47
DX: R07.9 Chest pain, unspecified (principal); M54.9 Dorsalgia, unspecified; E11.9 Type 2 diabetes mellitus without complications; J44.9 Chronic obstructive pulmonary disease, unspecified; K21.9 Gastro-esophageal reflux disease without esophagitis; M54.2 Cervicalgia; G47.30 Sleep apnea, unspecified; H91.90 Unspecified hearing loss, unspecified ear; F32.9 Major depressive disorder, single episode, unspecified; F20.9 Schizophrenia, unspecified; F17.200 Nicotine dependence, unspecified, uncomplicated; Z79.51 Long term (current) use of inhaled steroids; Z79.899 Other long term (current) drug therapy; Z79.84 Long term (current) use of oral hypoglycemic drugs; Z88.8 Allergy status to other drugs, medicaments and biological substances; Z91.040 Latex allergy status; Z91.048 Other nonmedicinal substance allergy status; Z88.1 Allergy status to other antibiotic agents; Z88.2 Allergy status to sulfonamides; Z86.73 Personal history of transient ischemic attack (TIA), and cerebral infarction without residual deficits; Z99.89 Dependence on other enabling machines and devices
CPT/HCPCS: 93005; 71046; 99285; 96374; J1885

== ENCOUNTER → 2020-05-28 | Outpatient (CLI) | payer MEDICARE, OTHER ==
--- NOTE | 2020-05-28 11:12 | MR ---
EXAMINATION TYPE: MR lumbar spine wo con DATE OF EXAM: 05/28/2020 COMPARISON: None HISTORY: Low back pain into buttock TECHNIQUE: Multiplanar, multisequence images of the lumbar spine were acquired. L1-L2: Some loss of disc height signal is present. Minimal posterior disc bulge causes slight anterio r mass effect on the thecal sac. L2-L3: Normal disc appearance without desiccation. No herniation, protrusion or disc bulging. No ca nal stenosis is present. Foramina are patent bilaterally. L3-L4: Normal disc appearance without desiccation. No herniation, protrusion or disc bulging. No ca nal stenosis is present. Foramina are patent bilaterally. L4-L5: Normal disc appearance without desiccation. No herniation, protrusion or disc bulging. No ca nal stenosis is present. Foramina are patent bilaterally. There is some facet arthropathy change pre sent. L5-S1: There is loss of disc height and signal, vacuum phenomenon is present. There is a posterior di sc herniation present likely contacting the proximal S1 nerve roots. Focal area of low signal on T1 a nd T2-weighted sequences is present posterior to the S1 vertebral body measuring approximately 12 mm x 9 mm x 10 mm and is in close continuity with the posterior disc herniation. There is likely contact with the left S1 nerve root. There is associated facet arthropathy change, circumferential extension endplate disc complex causes foraminal encroachment bilaterally. Lumbar segments are intact. No paraspinal masses are identified. Conus medullaris has a normal appe arance. Lumbar vertebral bodies show preserved height and alignment. There is multilevel spondylosis. Endplate discogenic marrow signal changes are present. IMPRESSION: Posterior disc herniation L5-S1, findings suspicious for sequestered fragment posterior to S1 vertebr al body. Contrast-enhanced exam may be of benefit.
== END | disposition home or self-care (01) ==
LOC: RADMRIMAIN 09:23
PROVIDERS: ATTEND Orthopaedic Surgery Orthopaedic Surgery of the Spine
DX: M51.17 Intervertebral disc disorders with radiculopathy, lumbosacral region (principal); E11.9 Type 2 diabetes mellitus without complications; M51.16 Intervertebral disc disorders with radiculopathy, lumbar region
CPT/HCPCS: 72148

== ENCOUNTER 2020-06-12 15:51 | Emergency (ER) | payer MEDICARE, OTHER ==
[2020-06-12 16:04] VITALS: RESP 18
[2020-06-12] MEDS ORDERED: METOCLOPRAMIDE 5 MG TAB PO STA (16:48)
--- NOTE | 2020-06-12 16:48 | ED ---
General Adult HPI - General Chief complaint: Abdominal Pain Stated complaint: lt sided abd pain Time Seen by Provider: 06/12/20 16:32 Source: patient, RN notes reviewed Mode of arrival: ambulatory Limitations: no limitations - History of Present Illness Initial comments: Patient is a pleasant 50-year-old male presenting to the emergency Department with abdominal discomfort. Symptoms are chronic and have been occurring for many years. Patient does have gastric neurologist and has had previous scoping studies. Patient states discomfort is generally after eating food. Patient states he is still taking his omeprazole. Patient is unclear whether or not he takes Bentyl at this time. Patient has no discomfort at this time. Patient states it is only when he eats food. - Related Data Home Medications Medication Instructions Recorded Confirmed ARIPiprazole [Abilify] 10 mg PO HS 01/19/19 04/23/20 OLANZapine [ZyPREXA] 10 mg PO HS 01/19/19 04/23/20 metFORMIN HCL 1,000 mg PO AC-BID 04/30/19 04/23/20 Loratadine 10 mg PO DAILY 08/22/19 04/23/20 glipiZIDE [Glucotrol] 10 mg PO AC-BID 01/19/20 04/23/20 Albuterol Sulfate [Proair Hfa] 2 puff INHALATION RT-Q6H PRN 02/21/20 04/23/20 Acetaminophen Tab [Tylenol] 500 - 1,000 mg PO Q6H PRN 04/12/20 04/23/20 Chlorhexidine Gluconate [Peridex] 15 ml PO BID 04/12/20 04/23/20 Dicyclomine [Bentyl] 20 mg PO QID 04/12/20 04/23/20 Ergocalciferol [Vitamin D2 50,000 unit PO MO 04/12/20 04/23/20 (DRISDOL)] Fluticasone Nasal [place] [Flonase 2 spray EA NOSTRIL DAILY 04/12/20 04/23/20 Nasal [place]] Fluticasone Propionate [Flovent 2 puff INHALATION RT-BID 04/12/20 04/23/20 Diskus] Loperamide [Imodium] 2 mg PO QID PRN 04/12/20 04/23/20 Omeprazole 40 mg PO DAILY 04/12/20 04/23/20 Tamsulosin [Flomax] 0.4 mg PO DAILY 04/12/20 04/23/20 Previous Rx's Medication Instructions Recorded Metoclopramide [Reglan] 5 mg PO ACHS #12 tab 06/12/20 Allergies Allergy/AdvReac Type Severity Reaction Status Date / Time dicyclomine HCl [From Bentyl] Allergy Unknown Dyspnea Verified 05/26/20 15:54 latex Allergy Unknown Rash/Hives Verified 05/26/20 15:54 diphenhydramine HCl Allergy Anaphylaxis Verified 05/26/20 15:54 [From Benadryl] adhesive AdvReac Unknown Itching Verified 05/26/20 15:54 ciprofloxacin AdvReac Unknown Nausea Verified 05/26/20 15:54 Macrolide Antibiotics AdvReac Unknown Nausea Verified 05/26/20 15:54 sulfamethoxazole AdvReac Unknown Unknown Verified 05/26/20 15:54 [From Bactrim] trimethoprim [From Bactrim] AdvReac Unknown Unknown Verified 05/26/20 15:54 Review of Systems ROS Statement: Those systems with pertinent positive or pertinent negative responses have been documented in the HPI. ROS Other: All systems not noted in ROS Statement are negative. Constitutional: Denies: fever Eyes: Denies: eye pain ENT: Denies: ear pain Respiratory: Denies: cough Cardiovascular: Denies: chest pain Endocrine: Denies: fatigue Gastrointestinal: Reports: as per HPI Genitourinary: Denies: urgency Musculoskeletal: Denies: back pain Skin: Denies: rash Neurological: Denies: weakness Past Medical History Past Medical History: Asthma, Chest Pain / Angina, COPD, CVA/TIA, Diabetes Mellitus, GERD/Reflux, Hearing Disorder / Deafness, Hyperlipidemia, Hypertension, Liver Disease, Osteoarthritis (OA), Pneumonia, Seizure Disorder, Sleep Apnea/CPAP/BIPAP Additional Past Medical History / Comment(s): states CVA at 35 yrs old with left sided weakness- uses cane., states seizure at 35 yrs old., DDD- back & neck pain., carpal tunnel syndrome., Cyst on kidney, uses cpap., states having abdominal pain with diarrhea and nausea ., Lives with his sister and has [employer] public guardian. History of Any Multi-Drug Resistant Organisms: None Reported Past Surgical History: Heart Catheterization, Orthopedic Surgery Additional Past Surgical History / Comment(s): Cysts removed, left thumb surgery, colonoscopy 08/24/2019 Past Anesthesia/Blood Transfusion Reactions: Motion Sickness, Postoperative Nausea & Vomiting (PONV) Past Psychological History: Anxiety, Bipolar, Depression, Schizophrenia Smoking Status: Current every day smoker Past Alcohol Use History: Occasional Past Drug Use History: None Reported - Past Family History Brother(s) Family Medical History: Diabetes Mellitus Additional Family Medical History / Comment(s): Patient has 2 brothers. One from complications from diabetes. The second is alive with diabetes. Sister(s) Family Medical History: Cancer Additional Family Medical History / Comment(s): Patient has one sister with breast cancer. Patient does not have any children. Father Family Medical History: Cancer Additional Family Medical History / Comment(s): Father in his 40s or 50s from colon cancer. Mother Family Medical History: Cancer Additional Family Medical History / Comment(s): Mother at age 68 from lung cancer. General Exam Limitations: no limitations General appearance: alert, in no apparent distress Head exam: Present: normocephalic Eye exam: Present: normal appearance Neck exam: Present: normal inspection Respiratory exam: Present: normal lung sounds bilaterally Cardiovascular Exam: Present: regular rate, normal rhythm Expanded Peripheral pulses: 2+: Posterior Tibialis (R), Posterior Tibialis (L), Dorsalis Pedis (R), Dorsalis Pedis (L) GI/Abdominal exam: Present: soft. Absent: tenderness, guarding, rebound, rigid, pulsatile mass Extremities exam: Present: normal inspection. Absent: pedal edema, calf tenderness Neurological exam: Present: alert Psychiatric exam: Present: normal affect, normal mood Skin exam: Present: normal color Course Vital Signs 06/12/20 16:02 Temperature 99.3 F Pulse Rate 81 Respiratory 18 Rate Blood Pressure 136/86 O2 Sat by Pulse 99 Oximetry Medical Decision Making - Medical Decision Making Patient reevaluated and resting comfortably in bed, remained symptom-free. Patient updated on results and need for follow-up. Disposition Clinical Impression: Abdominal pain Disposition: HOME SELF-CARE Condition: Stable Instructions (If sedation given, give patient instructions): Abdominal Pain (ED) Additional Instructions: Please do follow-up through primary care physician and scheduler in the next couple days for recheck. Prescription for Reglan has been sent to your pharmacy, [facility]. Return for increased pain, more persistent pain, fever or vomiting, worsening or change in symptoms or other concerns. Prescriptions: Metoclopramide [Reglan] 5 mg PO ACHS #12 tab Is patient prescribed a controlled substance at d/c from ED?: No Referrals: Ramya Saul MD [Primary Care Provider] - 1-2 days Benjamin Koenig MD [STAFF PHYSICIAN] - 1-2 days Time of Disposition: 17:41
--- NOTE | 2020-06-12 17:06 | XR ---
EXAMINATION TYPE: XR abdomen 1V DATE OF EXAM: 06/12/2020 COMPARISON: 12/06/2019 HISTORY: Pain TECHNIQUE: 2 views upright FINDINGS: There is no sign of intestinal obstruction or pneumoperitoneum. Fecal pattern is normal. Th ere is no evidence of a mass. There are no pathologic calcifications over the kidneys. Lung bases are clear. IMPRESSION: Nonacute abdomen. No change.
[2020-06-12 17:53] VITALS: BP 132/72; PULSE 78; TEMP 98.9
== END 2020-06-12 17:47 | disposition home or self-care (01) ==
LOC: EC 15:51
DX: R10.9 Unspecified abdominal pain (principal); J44.9 Chronic obstructive pulmonary disease, unspecified; E11.9 Type 2 diabetes mellitus without complications; K21.9 Gastro-esophageal reflux disease without esophagitis; E78.5 Hyperlipidemia, unspecified; I10 Essential (primary) hypertension; G40.909 Epilepsy, unspecified, not intractable, without status epilepticus; G47.33 Obstructive sleep apnea (adult) (pediatric); F17.200 Nicotine dependence, unspecified, uncomplicated; F41.9 Anxiety disorder, unspecified; F31.9 Bipolar disorder, unspecified; F20.9 Schizophrenia, unspecified; Z79.51 Long term (current) use of inhaled steroids; Z79.84 Long term (current) use of oral hypoglycemic drugs; Z79.899 Other long term (current) drug therapy; Z86.73 Personal history of transient ischemic attack (TIA), and cerebral infarction without residual deficits; Z95.5 Presence of coronary angioplasty implant and graft; Z88.1 Allergy status to other antibiotic agents; Z88.2 Allergy status to sulfonamides; Z88.8 Allergy status to other drugs, medicaments and biological substances; Z91.040 Latex allergy status; Z91.048 Other nonmedicinal substance allergy status
CPT/HCPCS: 74018; 99284

== ENCOUNTER → 2020-06-19 | Outpatient (CLI) | payer MEDICARE, OTHER ==
--- NOTE | 2020-06-19 10:46 | US ---
EXAMINATION TYPE: US abdomen complete DATE OF EXAM: 06/19/2020 COMPARISON: US 04/24/2020 CLINICAL HISTORY: R10.84 Gen Abd Pain K76.0 Fatty (change of) liver. EXAM MEASUREMENTS: Liver Length: 19.7 cm Gallbladder Wall: 0.2 cm CBD: 0.3 cm Spleen: 12.1 cm Right Kidney: 12.0 X 4.9 X 4.6 cm Left Kidney: 11.7 X 5.7 X 5.0 cm Pancreas: Obscured by bowel gas Liver: Increased attenuation, decreased visualization of vessels suggestive of fatty infiltrate. Pos sible focal fatty sparing visualized adjacent to the gallbladder Gallbladder: Possible sludge visualized Evidence for sonographic Durán's sign: No CBD: wnl Spleen: Granulomas Right Kidney: No hydronephrosis. Cystic area visualized measuring 1.9 x 2.0 x 1.6 cm Left Kidney: No hydronephrosis Cystic area visualized measuring 1.3 cm Upper IVC: wnl Abd Aorta: Obscured by overlying bowel gas, visualized portions wnl The intrahepatic portion of the IVC and proximal abdominal aorta are within normal limits. There is no evidence of cholelithiasis. Common bile duct is unremarkable. The visualized portions of the correia creas are homogenous. The spleen is unremarkable. Kidneys are symmetric and free of hydronephrosis. IMPRESSION: 1. Fatty liver with areas of focal fatty sparing. 2. Renal cystic changes.
== END | disposition home or self-care (01) ==
LOC: RADUSWWP 10:07
PROVIDERS: ATTEND Family Medicine
DX: N28.89 Other specified disorders of kidney and ureter (principal); K76.0 Fatty (change of) liver, not elsewhere classified
CPT/HCPCS: 76700

== ENCOUNTER 2020-06-22 12:16 | Emergency (ER) | payer MEDICARE, OTHER ==
[2020-06-22 12:48] VITALS: TEMP 98.7
[2020-06-22] MEDS ORDERED: SODIUM CHLORIDE 0.9% 1,000 ML IV ONE (13:28)
[2020-06-22 13:32] LABS: Basophils % (A) 1 %; Eosinophils # (A) 0.3 k/uL (0-0.7); Eosinophils % (A) 4 %; HCT 42.5 % (39.0-53.0); HGB 15.2 gm/dL (13.0-17.5); Lymphocytes # (A) 1.4 k/uL (1.0-4.8); Lymphocytes % (A) 20 %; MCH 30.3 pg (25.0-35.0); MCHC 35.7 g/dL (31.0-37.0); MCV 84.7 fL (80.0-100.0); Mean Platelet Volume 7.7; Monocytes # (A) 0.4 k/uL (0-1.0); Monocytes % (A) 5 %; Neutrophils # (A) 4.8 k/uL (1.3-7.7); Neutrophils % (A) 68 %; Platelet Count 173 k/uL (150-450); RBC 5.02 m/uL (4.30-5.90); RDW 13.8 % (11.5-15.5)
[2020-06-22 13:36] LABS: Appearance,Urine Clear (Clear); Bilirubin,Urine Negative (Negative); Blood,Urine Negative (Negative); Color,Urine Yellow; Glucose,Urine (UA) 4+ (Negative); Ketones,Urine Negative (Negative); Leukocyte Esterase,Urine Negative (Negative); Nitrite,Urine Negative (Negative); PH, Urine 5.5 (5.0-8.0); Protein,Urine Negative (Negative); Specific Gravity,Urine 1.032 (1.001-1.035); Urobilinogen,Urine <2.0 mg/dL (<2.0)
[2020-06-22 13:46] LABS: ALT 106 U/L (4-49); AST 46 U/L (17-59); African American GFR (CKD) >90 (>60 ml/min/1.73 sqM); Alkaline Phosphatase 95 U/L (38-126); Anion Gap 5 mmol/L; Blood Urea Nitrogen 9 mg/dL (9-20); Calcium 9.5 mg/dL (8.4-10.2); Carbon Dioxide 20 mmol/L (22-30); Chloride 110 mmol/L (98-107); Glucose 293 mg/dL (74-99); Lipase 97 U/L (23-300); Non-African American GFR(CKD) >90 (>60 ml/min/1.73 sqM); Potassium 4.1 mmol/L (3.5-5.1); Sodium 135 mmol/L (137-145); Total Bilirubin 0.3 mg/dL (0.2-1.3); Total Protein 6.4 g/dL (6.3-8.2)
--- NOTE | 2020-06-22 15:19 | ED ---
General Adult HPI - General Chief complaint: Recheck/Abnormal Lab/Rx Stated complaint: High blood sugar Time Seen by Provider: 06/22/20 13:04 Source: patient, RN notes reviewed, old records reviewed Mode of arrival: ambulatory Limitations: no limitations - History of Present Illness Initial comments: 50-year-old male patient well-known to this emergency department presents to ED for evaluation of hyperglycemia. He reports his blood sugar was 300 at home. He does report he takes metformin as well as glipizide. He also reports he has some very generalized suprapubic abdominal discomfort. This is chronic and has been ongoing for years. He reports it is often after food. Denies any other acute complaints. Systemic: Pt denies fatigue, fever/chills, rash. Pt denies weakness, night sweats, weight loss. Neuro: Pt denies headache, visual disturbances, syncope or pre-syncope. HEENT: Pt denies ocular discharge or irritation, otalgia, rhinorrhea, p haryngitis or notable lymphadenopathy. Cardiopulmonary: Pt denies chest pain, SOB, heart palpitations, dyspnea on exertion. Abdominal/GI: Pt denies n/v/d. : Pt denies dysuria, burning w/ urination, frequency/urgency. Denies new onset urinary or bowel incontinence. MSK: Pt denies myalgia, loss of strength or function in extremities. Neuro: Pt denies new onset weakness, paresthesias. - Related Data Home Medications Medication Instructions Recorded Confirmed ARIPiprazole [Abilify] 10 mg PO HS 01/19/19 04/23/20 OLANZapine [ZyPREXA] 10 mg PO HS 01/19/19 04/23/20 metFORMIN HCL 1,000 mg PO AC-BID 04/30/19 04/23/20 Loratadine 10 mg PO DAILY 08/22/19 04/23/20 glipiZIDE [Glucotrol] 10 mg PO AC-BID 01/19/20 04/23/20 Albuterol Sulfate [Proair Hfa] 2 puff INHALATION RT-Q6H PRN 02/21/20 04/23/20 Acetaminophen Tab [Tylenol] 500 - 1,000 mg PO Q6H PRN 04/12/20 04/23/20 Chlorhexidine Gluconate [Peridex] 15 ml PO BID 04/12/20 04/23/20 Dicyclomine [Bentyl] 20 mg PO QID 04/12/20 04/23/20 Ergocalciferol [Vitamin D2 50,000 unit PO MO 04/12/20 04/23/20 (DRISDOL)] Fluticasone Nasal [place] [Flonase 2 spray EA NOSTRIL DAILY 04/12/20 04/23/20 Nasal [place]] Fluticasone Propionate [Flovent 2 puff INHALATION RT-BID 04/12/20 04/23/20 Diskus] Loperamide [Imodium] 2 mg PO QID PRN 04/12/20 04/23/20 Omeprazole 40 mg PO DAILY 04/12/20 04/23/20 Tamsulosin [Flomax] 0.4 mg PO DAILY 04/12/20 04/23/20 Previous Rx's Medication Instructions Recorded Metoclopramide [Reglan] 5 mg PO ACHS #12 tab 06/12/20 Allergies Allergy/AdvReac Type Severity Reaction Status Date / Time dicyclomine HCl [From Bentyl] Allergy Unknown Dyspnea Verified 06/22/20 12:48 latex Allergy Unknown Rash/Hives Verified 06/22/20 12:48 diphenhydramine HCl Allergy Anaphylaxis Verified 06/22/20 12:48 [From Benadryl] adhesive AdvReac Unknown Itching Verified 06/22/20 12:48 ciprofloxacin AdvReac Unknown Nausea Verified 06/22/20 12:48 Macrolide Antibiotics AdvReac Unknown Nausea Verified 06/22/20 12:48 sulfamethoxazole AdvReac Unknown Unknown Verified 06/22/20 12:48 [From Bactrim] trimethoprim [From Bactrim] AdvReac Unknown Unknown Verified 06/22/20 12:48 Review of Systems ROS Statement: Those systems with pertinent positive or pertinent negative responses have been documented in the HPI. ROS Other: All systems not noted in ROS Statement are negative. 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 History of Any Multi-Drug Resistant Organisms: None Reported Past Surgical History: Heart Catheterization, Orthopedic Surgery Additional Past Surgical History / Comment(s): Cysts removed, left thumb surgery, colonoscopy 08/24/2019 Past Anesthesia/Blood Transfusion Reactions: Motion Sickness, Postoperative Nausea & Vomiting (PONV) Past Psychological History: Anxiety, Bipolar, Depression, Schizophrenia Smoking Status: Current every day smoker Past Alcohol Use History: Occasional Past Drug Use History: None Reported - Past Family History Brother(s) Family Medical History: Diabetes Mellitus Additional Family Medical History / Comment(s): Patient has 2 brothers. One from complications from diabetes. The second is alive with diabetes. Sister(s) Family Medical History: Cancer Additional Family Medical History / Comment(s): Patient has one sister with breast cancer. Patient does not have any children. Father Family Medical History: Cancer Additional Family Medical History / Comment(s): Father in his 40s or 50s from colon cancer. Mother Family Medical History: Cancer Additional Family Medical History / Comment(s): Mother at age 68 from lung cancer. General Exam - General Exam Comments Initial Comments: Constitutional: NAD, AOX3, Pt has pleasant affect. HEENT: NC/AT, trachea midline, neck supple, no lymphadenopathy. External ears appear normal, without discharge. Mucous membranes moist. Eyes PERRLA, EOM intact. There is no scleral icterus. No pallor noted. Cardiopulmonary: RRR, no murmurs, rubs or gallops, no JVD noted. Lungs CTAB in anterior and posterior robins. No peripheral edema. Abdominal exam: Abdomen soft and non-distended. Abdomen non-tender to palpation in all 4 quadrants. Bowel sounds active in LLQ. No hepatosplenomegaly. No ecchymosis Neuro: CN II-XII grossly intact. No nuchal rigidity MSK: Full active ROM in upper and lower extremities Limitations: no limitations Course Vital Signs 06/22/20 12:46 Temperature 98.7 F Pulse Rate 78 Respiratory 20 Rate Blood Pressure 135/86 O2 Sat by Pulse 98 Oximetry Medical Decision Making - Medical Decision Making 50-year-old male patient to ED for evaluation of hyperglycemia patient vital signs are stable, afebrile. Physical exam is negative for acute pathology. Laboratory investigations are hyperglycemia of 293. Lactic acid is elevated. No ketoneuria, acetone is negative. Anion gap is 5. Patient was administered 1 L fluid blood sugar down to 196. Abdomen is nontender. Patient reports that he has not been eating or drinking much the last 2 days so that may be a component of dehydration. He is tolerating oral intake in room. I offered advanced juan ging of abdomen and pelvis, the patient would like to decline. He'll monitor his symptoms follow-up with his primary care provider and return for any worsening symptoms. He does report that he has his diabetic medications. Case discussed with Dr. Vizcarra. - Lab Data Result diagrams: 06/22/20 13:22 06/22/20 13:22 Lab Results 06/22/20 06/22/20 06/22/20 Range/Units 13:22 13:22 13:22 WBC 7.0 (3.8-10.6) k/uL RBC 5.02 (4.30-5.90) m/uL Hgb 15.2 (13.0-17.5) gm/dL Hct 42.5 (39.0-53.0) % MCV 84.7 (80.0-100.0) fL MCH 30.3 (25.0-35.0) pg MCHC 35.7 (31.0-37.0) g/dL RDW 13.8 (11.5-15.5) % Plt Count 173 (150-450) k/uL MPV 7.7 Neutrophils % 68 % Lymphocytes % 20 % Monocytes % 5 % Eosinophils % 4 % Basophils % 1 % Neutrophils # 4.8 (1.3-7.7) k/uL Lymphocytes # 1.4 (1.0-4.8) k/uL Monocytes # 0.4 (0-1.0) k/uL Eosinophils # 0.3 (0-0.7) k/uL Basophils # 0.0 (0-0.2) k/uL Sodium 135 L (137-145) mmol/L Potassium 4.1 (3.5-5.1) mmol/L Chloride 110 H (98-107) mmol/L Carbon Dioxide 20 L (22-30) mmol/L Anion Gap 5 mmol/L BUN 9 (9-20) mg/dL Creatinine 0.69 (0.66-1.25) mg/dL Est GFR (CKD-EPI)AfAm >90 (>60 ml/min/1.73 sqM) Est GFR (CKD-EPI)NonAf >90 (>60 ml/min/1.73 sqM) Glucose 293 H (74-99) mg/dL Plasma Lactic Acid [place] (0.7-2.0) mmol/L Calcium 9.5 (8.4-10.2) mg/dL Total Bilirubin 0.3 (0.2-1.3) mg/dL AST 46 (17-59) U/L ALT 106 H (4-49) U/L Alkaline Phosphatase 95 (38-126) U/L Total Protein 6.4 (6.3-8.2) g/dL Albumin 4.0 (3.5-5.0) g/dL Lipase 97 (23-300) U/L Urine Color Yellow Urine Appearance Clear (Clear) Urine pH 5.5 (5.0-8.0) Ur Specific [place] 1.032 (1.001-1.035) Urine Protein Negative (Negative) Urine Glucose (UA) 4+ H (Negative) Urine Ketones Negative (Negative) Urine Blood Negative (Negative) Urine Nitrite Negative (Negative) Urine Bilirubin Negative (Negative) Urine Urobilinogen <2.0 (<2.0) mg/dL Ur Leukocyte Esterase Negative (Negative) Acetone, Qual (Negative) 06/22/20 06/22/20 Range/Units 13:22 13:25 WBC (3.8-10.6) k/uL RBC (4.30-5.90) m/uL Hgb (13.0-17.5) gm/dL Hct (39.0-53.0) % MCV (80.0-100.0) fL MCH (25.0-35.0) pg MCHC (31.0-37.0) g/dL RDW (11.5-15.5) % Plt Count (150-450) k/uL MPV Neutrophils % % Lymphocytes % % Monocytes % % Eosinophils % % Basophils % % Neutrophils # (1.3-7.7) k/uL Lymphocytes # (1.0-4.8) k/uL Monocytes # (0-1.0) k/uL Eosinophils # (0-0.7) k/uL Basophils # (0-0.2) k/uL Sodium (137-145) mmol/L Potassium (3.5-5.1) mmol/L Chloride (98-107) mmol/L Carbon Dioxide (22-30) mmol/L Anion Gap mmol/L BUN (9-20) mg/dL Creatinine (0.66-1.25) mg/dL Est GFR (CKD-EPI)AfAm (>60 ml/min/1.73 sqM) Est GFR (CKD-EPI)NonAf (>60 ml/min/1.73 sqM) Glucose (74-99) mg/dL Plasma Lactic Acid [place] 2.5 H* (0.7-2.0) mmol/L Calcium (8.4-10.2) mg/dL Total Bilirubin (0.2-1.3) mg/dL AST (17-59) U/L ALT (4-49) U/L Alkaline Phosphatase (38-126) U/L Total Protein (6.3-8.2) g/dL Albumin (3.5-5.0) g/dL Lipase (23-300) U/L Urine Color Urine Appearance (Clear) Urine pH (5.0-8.0) Ur Specific [place] (1.001-1.035) Urine Protein (Negative) Urine Glucose (UA) (Negative) Urine Ketones (Negative) Urine Blood (Negative) Urine Nitrite (Negative) Urine Bilirubin (Negative) Urine Urobilinogen (<2.0) mg/dL Ur Leukocyte Esterase (Negative) Acetone, Qual Negative (Negative) Disposition Clinical Impression: Hyperglycemia, Chronic abdominal pain Disposition: HOME SELF-CARE Condition: Stable Instructions (If sedation given, give patient instructions): Diabetic Hyperglycemia (ED) Additional Instructions: Follow up with PCP tomorrow. Continue to monitor blood sugar at home. Return to ED with any worsening symptoms. Is patient prescribed a controlled substance at d/c from ED?: No Referrals: Mulu Delarosa FNPBC [Primary Care Provider] - 1-2 days
[2020-06-22 15:31] VITALS: BP 124/99; PULSE 74; RESP 18
[2020-06-23 09:35] LABS: Glucose,Whole Blood 293 mg/dL (75-99)
[2020-06-23 09:35] LABS: Glucose,Whole Blood 196 mg/dL (75-99)
== END 2020-06-22 15:31 | disposition home or self-care (01) ==
LOC: EC 12:16
DX: E11.65 Type 2 diabetes mellitus with hyperglycemia (principal); G89.29 Other chronic pain; R10.9 Unspecified abdominal pain; I10 Essential (primary) hypertension; J44.9 Chronic obstructive pulmonary disease, unspecified; E78.5 Hyperlipidemia, unspecified; F41.9 Anxiety disorder, unspecified; F31.9 Bipolar disorder, unspecified; F20.9 Schizophrenia, unspecified; K21.9 Gastro-esophageal reflux disease without esophagitis; G40.909 Epilepsy, unspecified, not intractable, without status epilepticus; G47.30 Sleep apnea, unspecified; F17.200 Nicotine dependence, unspecified, uncomplicated; Z79.84 Long term (current) use of oral hypoglycemic drugs; Z79.51 Long term (current) use of inhaled steroids; Z79.899 Other long term (current) drug therapy; Z88.8 Allergy status to other drugs, medicaments and biological substances; Z91.040 Latex allergy status; Z91.048 Other nonmedicinal substance allergy status; Z88.1 Allergy status to other antibiotic agents; Z88.2 Allergy status to sulfonamides; Z86.73 Personal history of transient ischemic attack (TIA), and cerebral infarction without residual deficits; Z99.89 Dependence on other enabling machines and devices
CPT/HCPCS: 36415; 80053; 81003; 82009; 83605; 83690; 85025; 96360; 99285

== ENCOUNTER 2020-06-29 23:19 | Emergency (ER) | payer MEDICARE, OTHER ==
[2020-06-29 23:43] LABS: Glucose,Whole Blood 335 mg/dL (75-99)
[2020-06-29 23:53] VITALS: TEMP 98.3
[2020-06-30] MEDS ORDERED: SODIUM CHLORIDE 0.9% 2,000 ML IV STA (00:58)
[2020-06-30] MEDS ORDERED: ONDANSETRON 4 MG/2 ML VIAL IVP STA (00:58)
[2020-06-30 01:08] LABS: Glucose,Whole Blood 288 mg/dL (75-99)
[2020-06-30 01:17] LABS: Basophils % (A) 0 %; Eosinophils # (A) 0.3 k/uL (0-0.7); Eosinophils % (A) 5 %; HCT 40.1 % (39.0-53.0); HGB 14.2 gm/dL (13.0-17.5); Lymphocytes # (A) 1.5 k/uL (1.0-4.8); Lymphocytes % (A) 26 %; MCH 30.1 pg (25.0-35.0); MCHC 35.4 g/dL (31.0-37.0); Mean Platelet Volume 7.6; Monocytes # (A) 0.3 k/uL (0-1.0); Monocytes % (A) 6 %; Neutrophils # (A) 3.5 k/uL (1.3-7.7); Neutrophils % (A) 61 %; Platelet Count 176 k/uL (150-450); RBC 4.72 m/uL (4.30-5.90); RDW 13.8 % (11.5-15.5); WBC 5.7 k/uL (3.8-10.6)
[2020-06-30 01:29] LABS: ALT 83 U/L (4-49); AST 43 U/L (17-59); African American GFR (CKD) >90 (>60 ml/min/1.73 sqM); Albumin 3.6 g/dL (3.5-5.0); Alkaline Phosphatase 114 U/L (38-126); Amylase 31 U/L (30-110); Anion Gap 6 mmol/L; Blood Urea Nitrogen 11 mg/dL (9-20); Calcium 8.8 mg/dL (8.4-10.2); Carbon Dioxide 22 mmol/L (22-30); Chloride 110 mmol/L (98-107); Glucose 297 mg/dL (74-99); Lipase 101 U/L (23-300); Non-African American GFR(CKD) >90 (>60 ml/min/1.73 sqM); Potassium 3.8 mmol/L (3.5-5.1); Sodium 138 mmol/L (137-145); Total Bilirubin 0.2 mg/dL (0.2-1.3); Total Protein 5.8 g/dL (6.3-8.2)
[2020-06-30 01:30] LABS: Appearance,Urine Clear (Clear); Bilirubin,Urine Negative (Negative); Blood,Urine Negative (Negative); Color,Urine Light Yellow; Glucose,Urine (UA) 4+ (Negative); Ketones,Urine Negative (Negative); Leukocyte Esterase,Urine Negative (Negative); Nitrite,Urine Negative (Negative); PH, Urine 6.5 (5.0-8.0); Protein,Urine Negative (Negative); Specific Gravity,Urine 1.018 (1.001-1.035); Urobilinogen,Urine <2.0 mg/dL (<2.0)
[2020-06-30] MEDS ORDERED: INSULIN REGULAR 100 UNIT/ML VIAL (IV) SQ STA (01:41)
--- NOTE | 2020-06-30 02:10 | ED ---
General Adult HPI - General Chief complaint: Nausea/Vomiting/Diarrhea Stated complaint: High blood sugar Time Seen by Provider: 06/29/20 23:30 Source: patient Mode of arrival: ambulatory Limitations: no limitations - History of Present Illness Initial comments: This patient is a 50-year-old man who presents to be evaluated for a couple of reasons. The patient states that his blood sugar has been elevated going back nearly one week. He states that he has been trying to take his medication but it doesn't seem to be helping. In addition for the past day to 2 days the patient has had some lower abdominal cramping and some nausea as well. The cramping is intermittent. Currently no abdominal pain. He has not noted change in urination. Patient states there may be an element of constipation. No vomiting though he has had some intermittent nausea. -: days(s) Location: abdomen Radiation: non-radiation Severity scale (1-10): 2 Quality: other (Cramping) Consistency: intermittent Improves with: none Worsens with: none Associated Symptoms: nausea/vomiting (Nausea) Treatments Prior to Arrival: none - Related Data Home Medications Medication Instructions Recorded Confirmed ARIPiprazole [Abilify] 10 mg PO HS 01/19/19 04/23/20 OLANZapine [ZyPREXA] 10 mg PO HS 01/19/19 04/23/20 metFORMIN HCL 1,000 mg PO AC-BID 04/30/19 04/23/20 Loratadine 10 mg PO DAILY 08/22/19 04/23/20 glipiZIDE [Glucotrol] 10 mg PO AC-BID 01/19/20 04/23/20 Albuterol Sulfate [Proair Hfa] 2 puff INHALATION RT-Q6H PRN 02/21/20 04/23/20 Acetaminophen Tab [Tylenol] 500 - 1,000 mg PO Q6H PRN 04/12/20 04/23/20 Chlorhexidine Gluconate [Peridex] 15 ml PO BID 04/12/20 04/23/20 Dicyclomine [Bentyl] 20 mg PO QID 04/12/20 04/23/20 Ergocalciferol [Vitamin D2 50,000 unit PO MO 04/12/20 04/23/20 (DRISDOL)] Fluticasone Nasal [place] [Flonase 2 spray EA NOSTRIL DAILY 04/12/20 04/23/20 Nasal [place]] Fluticasone Propionate [Flovent 2 puff INHALATION RT-BID 04/12/20 04/23/20 Diskus] Loperamide [Imodium] 2 mg PO QID PRN 04/12/20 04/23/20 Omeprazole 40 mg PO DAILY 04/12/20 04/23/20 Tamsulosin [Flomax] 0.4 mg PO DAILY 04/12/20 04/23/20 Previous Rx's Medication Instructions Recorded Metoclopramide [Reglan] 5 mg PO ACHS #12 tab 06/12/20 Allergies Allergy/AdvReac Type Severity Reaction Status Date / Time dicyclomine HCl [From Bentyl] Allergy Unknown Dyspnea Verified 06/29/20 23:29 latex Allergy Unknown Rash/Hives Verified 06/29/20 23:29 diphenhydramine HCl Allergy Anaphylaxis Verified 06/29/20 23:29 [From Benadryl] adhesive AdvReac Unknown Itching Verified 06/29/20 23:29 ciprofloxacin AdvReac Unknown Nausea Verified 06/29/20 23:29 Macrolide Antibiotics AdvReac Unknown Nausea Verified 06/29/20 23:29 sulfamethoxazole AdvReac Unknown Unknown Verified 06/29/20 23:29 [From Bactrim] trimethoprim [From Bactrim] AdvReac Unknown Unknown Verified 06/29/20 23:29 Review of Systems ROS Statement: Those systems with pertinent positive or pertinent negative responses have been documented in the HPI. ROS Other: All systems not noted in ROS Statement are negative. Constitutional: Denies: fever, chills Respiratory: Denies: cough, dyspnea Cardiovascular: Denies: chest pain, palpitations, orthopnea, edema Gastrointestinal: Reports: as per HPI, abdominal pain, nausea, constipation. Denies: vomiting, diarrhea, melena, hematochezia Genitourinary: Denies: dysuria, hematuria, testicular pain, testicular mass Musculoskeletal: Denies: back pain Skin: Denies: rash Neurological: Denies: headache, weakness, numbness Past Medical History Past Medical History: Asthma, Chest Pain / Angina, COPD, CVA/TIA, Diabetes Mellitus, GERD/Reflux, Hearing Disorder / Deafness, Hyperlipidemia, Hypertension, Liver Disease, Osteoarthritis (OA), Pneumonia, Seizure Disorder, Sleep Apnea/CPAP/BIPAP Additional Past Medical History / Comment(s): states CVA at 35 yrs old with left sided weakness- uses cane., states seizure at 35 yrs old., DDD- back & neck pain., carpal tunnel syndrome., Cyst on kidney, uses cpap., states having abdominal pain with diarrhea and nausea ., Lives with his sister and has [employer] public guardian. History of Any Multi-Drug Resistant Organisms: None Reported Past Surgical History: Heart Catheterization, Orthopedic Surgery Additional Past Surgical History / Comment(s): Cysts removed, left thumb surgery, colonoscopy 08/24/2019 Past Anesthesia/Blood Transfusion Reactions: Motion Sickness, Postoperative Nausea & Vomiting (PONV) Past Psychological History: Anxiety, Bipolar, Depression, Schizophrenia Smoking Status: Current every day smoker Past Alcohol Use History: Occasional Past Drug Use History: None Reported - Past Family History Brother(s) Family Medical History: Diabetes Mellitus Additional Family Medical History / Comment(s): Patient has 2 brothers. One from complications from diabetes. The second is alive with diabetes. Sister(s) Family Medical History: Cancer Additional Family Medical History / Comment(s): Patient has one sister with breast cancer. Patient does not have any children. Father Family Medical History: Cancer Additional Family Medical History / Comment(s): Father in his 40s or 50s fr om colon cancer. Mother Family Medical History: Cancer Additional Family Medical History / Comment(s): Mother at age 68 from lung cancer. General Exam Limitations: no limitations General appearance: alert, in no apparent distress Head exam: Present: atraumatic, normocephalic Eye exam: Present: normal appearance. Absent: scleral icterus, conjunctival injection ENT exam: Present: mucous membranes dry Neck exam: Present: normal inspection Respiratory exam: Present: normal lung sounds bilaterally. Absent: respiratory distress, wheezes, rales, rhonchi, stridor Cardiovascular Exam: Present: regular rate, normal rhythm, normal heart sounds. Absent: systolic murmur, diastolic murmur, rubs, gallop GI/Abdominal exam: Present: soft. Absent: distended, tenderness, guarding, rebound, rigid, mass, pulsatile mass Extremities exam: Present: normal inspection, normal capillary refill. Absent: pedal edema, calf tenderness Back exam: Present: normal inspection. Absent: CVA tenderness (R), CVA tenderness (L) Neurological exam: Present: alert Skin exam: Present: warm, dry, intact, normal color. Absent: rash Course Vital Signs 06/29/20 23:27 Temperature 98.3 F Pulse Rate 79 Respiratory 18 Rate Blood Pressure 144/84 O2 Sat by Pulse 96 Oximetry Medical Decision Making - Lab Data Result diagrams: 06/30/20 01:02 06/30/20 01:02 Lab Results 06/29/20 06/30/20 06/30/20 Range/Units 23:41 01:02 01:02 WBC 5.7 (3.8-10.6) k/uL RBC 4.72 (4.30-5.90) m/uL Hgb 14.2 (13.0-17.5) gm/dL Hct 40.1 (39.0-53.0) % MCV 85.0 (80.0-100.0) fL MCH 30.1 (25.0-35.0) pg MCHC 35.4 (31.0-37.0) g/dL RDW 13.8 (11.5-15.5) % Plt Count 176 (150-450) k/uL MPV 7.6 Neutrophils % 61 % Lymphocytes % 26 % Monocytes % 6 % Eosinophils % 5 % Basophils % 0 % Neutrophils # 3.5 (1.3-7.7) k/uL Lymphocytes # 1.5 (1.0-4.8) k/uL Monocytes # 0.3 (0-1.0) k/uL Eosinophils # 0.3 (0-0.7) k/uL Basophils # 0.0 (0-0.2) k/uL Sodium 138 (137-145) mmol/L Potassium 3.8 (3.5-5.1) mmol/L Chloride 110 H (98-107) mmol/L Carbon Dioxide 22 (22-30) mmol/L Anion Gap 6 mmol/L BUN 11 (9-20) mg/dL Creatinine 0.68 (0.66-1.25) mg/dL Est GFR (CKD-EPI)AfAm >90 (>60 ml/min/1.73 sqM) Est GFR (CKD-EPI)NonAf >90 (>60 ml/min/1.73 sqM) Glucose 297 H (74-99) mg/dL POC Glucose (mg/dL) 335 H (75-99) mg/dL POC Glu Tableau Analyst ID Rachel Groves Calcium 8.8 (8.4-10.2) mg/dL Total Bilirubin 0.2 (0.2-1.3) mg/dL AST 43 (17-59) U/L ALT 83 H (4-49) U/L Alkaline Phosphatase 114 (38-126) U/L Total Protein 5.8 L (6.3-8.2) g/dL Albumin 3.6 (3.5-5.0) g/dL Amylase 31 (30-110) U/L Lipase 101 (23-300) U/L Urine Color Urine Appearance (Clear) Urine pH (5.0-8.0) Ur Specific [place] (1.001-1.035) Urine Protein (Negative) Urine Glucose (UA) (Negative) Urine Ketones (Negative) Urine Blood (Negative) Urine Nitrite (Negative) Urine Bilirubin (Negative) Urine Urobilinogen (<2.0) mg/dL Ur Leukocyte Esterase (Negative) 06/30/20 06/30/20 06/30/20 Range/Units 01:07 01: 02:40 WBC (3.8-10.6) k/uL RBC (4.30-5.90) m/uL Hgb (13.0-17.5) gm/dL Hct (39.0-53.0) % MCV (80.0-100.0) fL MCH (25.0-35.0) pg MCHC (31.0-37.0) g/dL RDW (11.5-15.5) % Plt Count (150-450) k/uL MPV Neutrophils % % Lymphocytes % % Monocytes % % Eosinophils % % Basophils % % Neutrophils # (1.3-7.7) k/uL Lymphocytes # (1.0-4.8) k/uL Monocytes # (0-1.0) k/uL Eosinophils # (0-0.7) k/uL Basophils # (0-0.2) k/uL Sodium (137-145) mmol/L Potassium (3.5-5.1) mmol/L Chloride (98-107) mmol/L Carbon Dioxide (22-30) mmol/L Anion Gap mmol/L BUN (9-20) mg/dL Creatinine (0.66-1.25) mg/dL Est GFR (CKD-EPI)AfAm (>60 ml/min/1.73 sqM) Est GFR (CKD-EPI)NonAf (>60 ml/min/1.73 sqM) Glucose (74-99) mg/dL POC Glucose (mg/dL) 288 H 202 H (75-99) mg/dL POC Glu Tableau Analyst ID Rachel Groves Maryssa Calcium (8.4-10.2) mg/dL Total Bilirubin (0.2-1.3) mg/dL AST (17-59) U/L ALT (4-49) U/L Alkaline Phosphatase (38-126) U/L Total Protein (6.3-8.2) g/dL Albumin (3.5-5.0) g/dL Amylase (30-110) U/L Lipase (23-300) U/L Urine Color Light Yellow Urine Appearance Clear (Clear) Urine pH 6.5 (5.0-8.0) Ur Specific [place] 1.018 (1.001-1.035) Urine Protein Negative (Negative) Urine Glucose (UA) 4+ H (Negative) Urine Ketones Negative (Negative) Urine Blood Negative (Negative) Urine Nitrite Negative (Negative) Urine Bilirubin Negative (Negative) Urine Urobilinogen <2.0 (<2.0) mg/dL Ur Leukocyte Esterase Negative (Negative) Disposition Clinical Impression: Hyperglycemia due to diabetes mellitus, Nausea Disposition: HOME SELF-CARE Condition: Good Instructions (If sedation given, give patient instructions): Acute Nausea and Vomiting (ED), Diabetic Hyperglycemia (ED) Is patient prescribed a controlled substance at d/c from ED?: No Referrals: Ramya Saul MD [Primary Care Provider] - 1-2 days
[2020-06-30 02:42] LABS: Glucose,Whole Blood 202 mg/dL (75-99)
[2020-06-30 03:33] LABS: Glucose,Whole Blood 171 mg/dL (75-99)
[2020-06-30 03:40] VITALS: BP 112/77; PULSE 71; RESP 17
== END 2020-06-30 03:40 | disposition home or self-care (01) ==
LOC: EC 23:19
DX: E11.65 Type 2 diabetes mellitus with hyperglycemia (principal); R10.30 Lower abdominal pain, unspecified; F41.9 Anxiety disorder, unspecified; F31.9 Bipolar disorder, unspecified; F20.9 Schizophrenia, unspecified; G47.33 Obstructive sleep apnea (adult) (pediatric); J44.9 Chronic obstructive pulmonary disease, unspecified; K21.9 Gastro-esophageal reflux disease without esophagitis; E78.5 Hyperlipidemia, unspecified; I10 Essential (primary) hypertension; G40.909 Epilepsy, unspecified, not intractable, without status epilepticus; F17.200 Nicotine dependence, unspecified, uncomplicated; Z79.51 Long term (current) use of inhaled steroids; Z79.84 Long term (current) use of oral hypoglycemic drugs; Z79.899 Other long term (current) drug therapy; Z88.1 Allergy status to other antibiotic agents; Z88.2 Allergy status to sulfonamides; Z88.8 Allergy status to other drugs, medicaments and biological substances; Z91.040 Latex allergy status; Z86.73 Personal history of transient ischemic attack (TIA), and cerebral infarction without residual deficits; Z99.89 Dependence on other enabling machines and devices; Z95.5 Presence of coronary angioplasty implant and graft
CPT/HCPCS: 36415 ×2; 80053; 82150; 83690; 85025; 81003; 99285; 96374; 96361 ×2; J2405

== ENCOUNTER 2020-07-09 19:21 | Emergency (ER) | payer MEDICARE, OTHER ==
[2020-07-09] MEDS ORDERED: KETOROLAC 15 MG/ML 1 ML VIAL IVP STA (19:39)
[2020-07-09] MEDS ORDERED: SODIUM CHLORIDE 0.9% 1,000 ML IV STA (19:39)
[2020-07-09 19:40] LABS: Glucose,Whole Blood 131 mg/dL (75-99)
--- NOTE | 2020-07-09 19:41 | ED ---
General Adult HPI - General Source: patient, RN notes reviewed Mode of arrival: ambulatory Limitations: no limitations <Nash Cedillo - Last Filed: 07/09/20 20:30> <Luis Yao - Last Filed: 07/09/20 22:16> - General Chief complaint: Abdominal Pain Stated complaint: side pain Time Seen by Provider: 07/09/20 19:32 - History of Present Illness Initial comments: Patient is a pleasant 20-year-old male presenting to the emergency Department with complaints of left-sided abdominal discomfort. Onset of symptoms was morning. No history of similar symptoms previously. Patient has been urinating a little bit more than normal. No dysuria or hematuria. Discomfort is steady. No nausea vomiting. Patient does have decreased appetite. No constipation or diarrhea. No fever. (Nash Cedillo) - Related Data Home Medications Medication Instructions Recorded Confirmed ARIPiprazole [Abilify] 10 mg PO HS 01/19/19 04/23/20 OLANZapine [ZyPREXA] 10 mg PO HS 01/19/19 04/23/20 metFORMIN HCL 1,000 mg PO AC-BID 04/30/19 04/23/20 glipiZIDE [Glucotrol] 10 mg PO AC-BID 01/19/20 04/23/20 Albuterol Sulfate [Proair Hfa] 2 puff INHALATION RT-Q6H PRN 02/21/20 04/23/20 Dicyclomine [Bentyl] 20 mg PO QID 04/12/20 04/23/20 Ergocalciferol [Vitamin D2 50,000 unit PO MO 04/12/20 04/23/20 (DRISDOL)] Fluticasone Propionate [Flovent 2 puff INHALATION RT-BID 04/12/20 04/23/20 Diskus] Loperamide [Imodium] 2 mg PO QID PRN 04/12/20 04/23/20 Omeprazole 40 mg PO DAILY 04/12/20 04/23/20 Tamsulosin [Flomax] 0.4 mg PO DAILY 04/12/20 04/23/20 Previous Rx's Medication Instructions Recorded Ondansetron Odt [Zofran ODT] 4 mg PO Q8HR PRN #10 tab 07/09/20 Phenobarb/Hyoscy/Atropine/Scop 16.2 mg PO Q6HR PRN #12 tablet 07/09/20 [ Tab] Allergies Allergy/AdvReac Type Severity Reaction Status Date / Time dicyclomine HCl [From Bentyl] Allergy Unknown Dyspnea Verified 07/09/20 22:05 latex Allergy Unknown Rash/Hives Verified 07/09/20 22:05 diphenhydramine HCl Allergy Anaphylaxis Verified 07/09/20 22:05 [From Benadryl] adhesive AdvReac Unknown Itching Verified 07/09/20 22:05 ciprofloxacin AdvReac Unknown Nausea Verified 07/09/20 22:05 Macrolide Antibiotics AdvReac Unknown Nausea Verified 07/09/20 22:05 sulfamethoxazole AdvReac Unknown Unknown Verified 07/09/20 22:05 [From Bactrim] trimethoprim [From Bactrim] AdvReac Unknown Unknown Verified 07/09/20 22:05 Review of Systems ROS Other: All systems not noted in ROS Statement are negative. Constitutional: Denies: fever Eyes: Denies: eye pain ENT: Denies: ear pain Respiratory: Denies: cough Cardiovascular: Denies: chest pain Endocrine: Denies: fatigue Gastrointestinal: Reports: as per HPI, abdominal pain Genitourinary: Reports: frequency. Denies: dysuria Musculoskeletal: Denies: back pain Skin: Denies: rash Neurological: Denies: weakness <Nash Cedillo - Last Filed: 07/09/20 20:30> ROS Other: All systems not noted in ROS Statement are negative. <Luis Yao - Last Filed: 07/09/20 22:16> ROS Statement: Those systems with pertinent positive or pertinent negative responses have been documented in the HPI. 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 History of Any Multi-Drug Resistant Organisms: None Reported Past Surgical History: Heart Catheterization, Orthopedic Surgery Additional Past Surgical History / Comment(s): Cysts removed, left thumb surgery, colonoscopy 08/24/2019 Past Anesthesia/Blood Transfusion Reactions: Motion Sickness, Postoperative Nausea & Vomiting (PONV) Past Psychological History: Anxiety, Bipolar, Depression, Schizophrenia Smoking Status: Current every day smoker Past Alcohol Use History: Occasional Past Drug Use History: None Reported - Past Family History Brother(s) Family Medical History: Diabetes Mellitus Additional Family Medical History / Comment(s): Patient has 2 brothers. One from complications from diabetes. The second is alive with diabetes. Sister(s) Family Medical History: Cancer Additional Family Medical History / Comment(s): Patient has one sister with breast cancer. Patient does not have any children. Father Family Medical History: Cancer Additional Family Medical History / Comment(s): Father in his 40s or 50s from colon cancer. Mother Family Medical History: Cancer Additional Family Medical History / Comment(s): Mother at age 68 from lung cancer. <Nash Cedillo - Last Filed: 07/09/20 20:30> General Exam Limitations: no limitations General appearance: alert, in no apparent distress Head exam: Present: normocephalic Eye exam: Present: normal appearance Neck exam: Present: normal inspection Respiratory exam: Present: normal lung sounds bilaterally Cardiovascular Exam: Present: regular rate, normal rhythm Expanded Peripheral pulses: 2+: Posterior Tibialis (R), Posterior Tibialis (L) GI/Abdominal exam: Present: soft, tenderness (Mild to moderate tenderness left lower), normal bowel sounds. Absent: distended, guarding, rebound, rigid, pulsatile mass Extremities exam: Present: normal inspection Back exam: Absent: CVA tenderness (L) Neurological exam: Present: alert Psychiatric exam: Present: normal affect, normal mood Skin exam: Present: normal color <Nash Cedillo - Last Filed: 07/09/20 20:30> Course Vital Signs 07/09/20 07/09/20 07/09/20 19:27 20:30 21:10 Temperature 98.7 F Pulse Rate 78 63 65 Respiratory 20 20 19 Rate Blood Pressure 183/90 118/72 112/75 O2 Sat by Pulse 98 96 97 Oximetry Medical Decision Making - Lab Data Result diagrams: 07/09/20 19:42 07/09/20 19:41 - Radiology Data Radiology results: image reviewed (KUB reveals no acute abnormality.) <Nash Cedillo - Last Filed: 07/09/20 20:30> - Lab Data Result diagrams: 07/09/20 19:42 07/09/20 19:41 <Luis Yao - Last Filed: 07/09/20 22:16> - Medical Decision Making The laboratories reviewed and is unremarkable. The computed tomography scan of the abdomen and pelvis shows a stable left splenic cyst but no acute process. On reevaluation, the patient is still not in any significant distress. The exact cause of his abdominal pain is not definitively determine but it is felt as though he is stable for discharge. He has had some nausea as well. He will be prescribed some Zofran and Donnitol. (Luis Yao) - Lab Data Lab Results 07/09/20 07/09/20 07/09/20 Range/Units 19:38 19:41 19:42 WBC 9.2 (3.8-10.6) k/uL RBC 5.15 (4.30-5.90) m/uL Hgb 15.2 (13.0-17.5) gm/dL Hct 43.8 (39.0-53.0) % MCV 85.1 (80.0-100.0) fL MCH 29.6 (25.0-35.0) pg MCHC 34.8 (31.0-37.0) g/dL RDW 13.7 (11.5-15.5) % Plt Count 209 (150-450) k/uL MPV 7.3 Neutrophils % 69 % Lymphocytes % 19 % Monocytes % 5 % Eosinophils % 5 % Basophils % 1 % Neutrophils # 6.4 (1.3-7.7) k/uL Lymphocytes # 1.8 (1.0-4.8) k/uL Monocytes # 0.5 (0-1.0) k/uL Eosinophils # 0.4 (0-0.7) k/uL Basophils # 0.1 (0-0.2) k/uL PT (9.0-12.0) sec INR (<1.2) APTT (22.0-30.0) sec Sodium 141 (137-145) mmol/L Potassium 4.2 (3.5-5.1) mmol/L Chloride 110 H (98-107) mmol/L Carbon Dioxide 22 (22-30) mmol/L Anion Gap 9 mmol/L BUN 11 (9-20) mg/dL Creatinine 0.83 (0.66-1.25) mg/dL Est GFR (CKD-EPI)AfAm >90 (>60 ml/min/1.73 sqM) Est GFR (CKD-EPI)NonAf >90 (>60 ml/min/1.73 sqM) Glucose 126 H (74-99) mg/dL POC Glucose (mg/dL) 131 H (75-99) mg/dL POC Glu [employer] Control Clerk ID Ana, Nga Calcium 10.0 (8.4-10.2) mg/dL Total Bilirubin 0.4 (0.2-1.3) mg/dL AST 47 (17-59) U/L ALT 89 H (4-49) U/L Alkaline Phosphatase 69 (38-126) U/L Total Protein 6.9 (6.3-8.2) g/dL Albumin 4.3 (3.5-5.0) g/dL Amylase 43 (30-110) U/L Lipase 95 (23-300) U/L Urine Color Urine Appearance (Clear) Urine pH (5.0-8.0) Ur Specific [place] (1.001-1.035) Urine Protein (Negative) Urine Glucose (UA) (Negative) Urine Ketones (Negative) Urine Blood (Negative) Urine Nitrite (Negative) Urine Bilirubin (Negative) Urine Urobilinogen (<2.0) mg/dL Ur Leukocyte Esterase (Negative) 07/09/20 07/09/20 Range/Units 19:42 19:55 WBC (3.8-10.6) k/uL RBC (4.30-5.90) m/uL Hgb (13.0-17.5) gm/dL Hct (39.0-53.0) % MCV (80.0-100.0) fL MCH (25.0-35.0) pg MCHC (31.0-37.0) g/dL RDW (11.5-15.5) % Plt Count (150-450) k/uL MPV Neutrophils % % Lymphocytes % % Monocytes % % Eosinophils % % Basophils % % Neutrophils # (1.3-7.7) k/uL Lymphocytes # (1.0-4.8) k/uL Monocytes # (0-1.0) k/uL Eosinophils # (0-0.7) k/uL Basophils # (0-0.2) k/uL PT 9.9 (9.0-12.0) sec INR 0.9 (<1.2) APTT 22.1 (22.0-30.0) sec Sodium (137-145) mmol/L Potassium (3.5-5.1) mmol/L Chloride (98-107) mmol/L Carbon Dioxide (22-30) mmol/L Anion Gap mmol/L BUN (9-20) mg/dL Creatinine (0.66-1.25) mg/dL Est GFR (CKD-EPI)AfAm (>60 ml/min/1.73 sqM) Est GFR (CKD-EPI)NonAf (>60 ml/min/1.73 sqM) Glucose (74-99) mg/dL POC Glucose (mg/dL) (75-99) mg/dL POC Glu [employer] Control Clerk ID Calcium (8.4-10.2) mg/dL Total Bilirubin (0.2-1.3) mg/dL AST (17-59) U/L ALT (4-49) U/L Alkaline Phosphatase (38-126) U/L Total Protein (6.3-8.2) g/dL Albumin (3.5-5.0) g/dL Amylase (30-110) U/L Lipase (23-300) U/L Urine Color Light Yellow Urine Appearance Clear (Clear) Urine pH 6.5 (5.0-8.0) Ur Specific [place] 1.006 (1.001-1.035) Urine Protein Negative (Negative) Urine Glucose (UA) Negative (Negative) Urine Ketones Negative (Negative) Urine Blood Negative (Negative) Urine Nitrite Negative (Negative) Urine Bilirubin Negative (Negative) Urine Urobilinogen <2.0 (<2.0) mg/dL Ur Leukocyte Esterase Negative (Negative) Disposition <Nash Cedillo - Last Filed: 07/09/20 20:30> Is patient prescribed a controlled substance at d/c from ED?: Yes When asked, does pt state using other controlled substances?: No If prescribed controlled substance>3 days was MAPS reviewed?: Prescribed <3 Days Time of Disposition: 22:13 <Luis Yao - Last Filed: 07/09/20 22:16> Clinical Impression: Acute abdominal pain, Nausea Disposition: HOME SELF-CARE Condition: Good Instructions (If sedation given, give patient instructions): Abdominal Pain (ED) Prescriptions: Phenobarb/Hyoscy/Atropine/Scop [ Tab] 16.2 mg PO Q6HR PRN #12 tablet PRN Reason: Abdominal pain Ondansetron Odt [Zofran ODT] 4 mg PO Q8HR PRN #10 tab PRN Reason: Nausea And Vomiting Referrals: Ramya Saul MD [Primary Care Provider] - 1-2 days
[2020-07-09 19:49] LABS: Basophils # (A) 0.1 k/uL (0-0.2); Basophils % (A) 1 %; Eosinophils # (A) 0.4 k/uL (0-0.7); Eosinophils % (A) 5 %; HCT 43.8 % (39.0-53.0); HGB 15.2 gm/dL (13.0-17.5); Lymphocytes # (A) 1.8 k/uL (1.0-4.8); Lymphocytes % (A) 19 %; MCH 29.6 pg (25.0-35.0); MCHC 34.8 g/dL (31.0-37.0); MCV 85.1 fL (80.0-100.0); Mean Platelet Volume 7.3; Monocytes # (A) 0.5 k/uL (0-1.0); Monocytes % (A) 5 %; Neutrophils # (A) 6.4 k/uL (1.3-7.7); Neutrophils % (A) 69 %; Platelet Count 209 k/uL (150-450); RBC 5.15 m/uL (4.30-5.90); RDW 13.7 % (11.5-15.5); WBC 9.2 k/uL (3.8-10.6)
[2020-07-09 20:01] LABS: Chloride 110 mmol/L (98-107)
[2020-07-09 20:03] LABS: ALT 89 U/L (4-49); AST 47 U/L (17-59); African American GFR (CKD) >90 (>60 ml/min/1.73 sqM); Albumin 4.3 g/dL (3.5-5.0); Alkaline Phosphatase 69 U/L (38-126); Amylase 43 U/L (30-110); Anion Gap 9 mmol/L; Blood Urea Nitrogen 11 mg/dL (9-20); Carbon Dioxide 22 mmol/L (22-30); Glucose 126 mg/dL (74-99); Lipase 95 U/L (23-300); Non-African American GFR(CKD) >90 (>60 ml/min/1.73 sqM); Potassium 4.2 mmol/L (3.5-5.1); Sodium 141 mmol/L (137-145); Total Bilirubin 0.4 mg/dL (0.2-1.3); Total Protein 6.9 g/dL (6.3-8.2)
[2020-07-09 20:06] LABS: Appearance,Urine Clear (Clear); Bilirubin,Urine Negative (Negative); Blood,Urine Negative (Negative); Color,Urine Light Yellow; Glucose,Urine (UA) Negative (Negative); Ketones,Urine Negative (Negative); Leukocyte Esterase,Urine Negative (Negative); Nitrite,Urine Negative (Negative); PH, Urine 6.5 (5.0-8.0); Protein,Urine Negative (Negative); Specific Gravity,Urine 1.006 (1.001-1.035); Urobilinogen,Urine <2.0 mg/dL (<2.0)
--- NOTE | 2020-07-09 20:08 | XR ---
EXAM: Abdomen radiograph. HISTORY: Pain. TECHNIQUE: Supine AP view. COMPARISON: 06/12/2020. FINDINGS: There are nondilated bowel loops with a nonobstructive pattern. There are no pathologic calcification s. No acute osseous abnormality seen. Pelvic phlebolith seen. IMPRESSION: No acute abnormality.
[2020-07-09 20:28] LABS: INR 0.9 (<1.2); Partial Thromboplastin Time 22.1 sec (22.0-30.0); Prothrombin Time 9.9 sec (9.0-12.0)
--- NOTE | 2020-07-09 21:35 | CT ---
EXAMINATION TYPE: CT abdomen pelvis wo con DATE OF EXAM: 07/09/2020 COMPARISON: 08/26/2019. HISTORY: Abdominal pain CT DLP: 735.5 mGycm Automated exposure control for dose reduction was used. TECHNIQUE: Helical acquisition of images was performed from the lung bases through the pelvis. FINDINGS: LUNG BASES: No significant abnormality is appreciated. LIVER/GB: No significant abnormality is appreciated. PANCREAS: No significant abnormality is seen. SPLEEN: No acute abnormality is seen. Stable 5.4 cm lateral splenic cyst with peripheral calcificatio ns. ADRENALS: No significant abnormality is seen. KIDNEYS: No significant abnormality is seen. Stable few benign right renal cysts in lower pole, measu ring up to 2 cm. FREE AIR: No free air is visualized RETROPERITONEAL ADENOPATHY: None visualized REPRODUCTIVE ORGANS: No significant abnormality is seen URINARY BLADDER: No significant abnormality is seen. PELVIC ADENOPATHY: None visualized. OSSEOUS STRUCTURES: No acute abnormality is seen. Stable S1 mixed sclerotic changes with considerati ons including intraosseous hemangioma. BOWEL: No significant abnormality is seen. OTHER: None IMPRESSION: NO ACUTE ABNORMALITY. STABLE SPLENIC CYST.
[2020-07-09 22:09] VITALS: RESP 19
[2020-07-09 22:38] VITALS: BP 136/87; PULSE 61; TEMP 98.3
== END 2020-07-09 22:30 | disposition home or self-care (01) ==
LOC: EC 19:21
DX: R10.9 Unspecified abdominal pain (principal); R11.0 Nausea; D73.4 Cyst of spleen; J44.9 Chronic obstructive pulmonary disease, unspecified; E11.9 Type 2 diabetes mellitus without complications; I10 Essential (primary) hypertension; K21.9 Gastro-esophageal reflux disease without esophagitis; E78.5 Hyperlipidemia, unspecified; G40.909 Epilepsy, unspecified, not intractable, without status epilepticus; G47.30 Sleep apnea, unspecified; F41.9 Anxiety disorder, unspecified; F31.9 Bipolar disorder, unspecified; F17.200 Nicotine dependence, unspecified, uncomplicated; Z79.84 Long term (current) use of oral hypoglycemic drugs; Z79.51 Long term (current) use of inhaled steroids; Z79.899 Other long term (current) drug therapy; Z88.8 Allergy status to other drugs, medicaments and biological substances; Z91.040 Latex allergy status; Z88.1 Allergy status to other antibiotic agents; Z88.2 Allergy status to sulfonamides; Z99.89 Dependence on other enabling machines and devices; Z86.73 Personal history of transient ischemic attack (TIA), and cerebral infarction without residual deficits
CPT/HCPCS: 36415; 80053; 82150; 83690; 85025; 85610; 85730; 81003; 74018; 74176; 99284; 96374; 96361 ×3; J1885

== ENCOUNTER 2020-08-06 11:40 | Emergency (ER) | payer MEDICARE, OTHER ==
[2020-08-06 11:49] VITALS: BP 137/88; RESP 18; TEMP 98
[2020-08-06 11:58] LABS: Glucose,Whole Blood 144 mg/dL (75-99)
[2020-08-06] MEDS ORDERED: ASPIRIN 81 MG PO STA (12:20)
[2020-08-06] MEDS ORDERED: IPRATROPIUM-ALBUTEROL 3 ML NEB INHALATION STA (12:25)
[2020-08-06] MEDS ORDERED: methylPREDNISolone SOD SUCCI 125 MG/2 ML VIAL IV STA (12:26)
--- NOTE | 2020-08-06 12:27 | ED ---
Chest Pain HPI - General Chief Complaint: Chest Pain Stated Complaint: chest pain Time Seen by Provider: 08/06/20 11:59 Source: patient, RN notes reviewed Mode of arrival: wheelchair Limitations: no limitations - History of Present Illness Initial Comments: This a 50-year-old male presents emergency Department chief complaint of chest pain. Patient states that he had some chest pain after smoking outside around 2 AM. Patient states that he went right down symptoms didn't improve but states he is concerned maybe had a stroke or heart attack. Patient states he has no current severe chest pain this time he does have some shortness breath though he is a heavy smoker. Patient states she's noticed some wheezing. No fevers or chills. Denies any increase abdominal pain no nausea vomiting no diaphoretic episodes. He states that he 1 mg aspirin this morning. - Related Data Home Medications Medication Instructions Recorded Confirmed ARIPiprazole [Abilify] 10 mg PO HS 01/19/19 08/06/20 OLANZapine [ZyPREXA] 10 mg PO HS 01/19/19 08/06/20 metFORMIN HCL 1,000 mg PO QAM 04/30/19 08/06/20 glipiZIDE [Glucotrol] 10 mg PO AC-BID 01/19/20 08/06/20 Albuterol Sulfate [Proair Hfa] 2 puff INHALATION RT-Q6H PRN 02/21/20 08/06/20 Dicyclomine [Bentyl] 20 mg PO QID 04/12/20 08/06/20 Ergocalciferol [Vitamin D2 50,000 unit PO MO 04/12/20 08/06/20 (DRISDOL)] Fluticasone Propionate [Flovent 2 puff INHALATION RT-BID 04/12/20 08/06/20 Diskus] Loperamide [Imodium] 2 mg PO QID PRN 04/12/20 08/06/20 Omeprazole 40 mg PO DAILY 04/12/20 08/06/20 Tamsulosin [Flomax] 0.4 mg PO DAILY 04/12/20 08/06/20 Aspirin EC [Ecotrin Low Dose] 81 mg PO DAILY 07/09/20 08/06/20 sitaGLIPtin [Januvia] 25 mg PO DAILY 07/09/20 08/06/20 Calcium Carbonate [Tums] 500 mg PO TID PRN 08/06/20 08/06/20 Previous Rx's Medication Instructions Recorded Phenobarb/Hyoscy/Atropine/Scop 16.2 mg PO Q6H #12 tablet 07/09/20 [ Tab] Ipratropium-Albuterol Nebulize 3 ml INHALATION QID #1 box 08/06/20 [Duoneb 0.5 mg-3 mg/3 ml Soln] Allergies Allergy/AdvReac Type Severity Reaction Status Date / Time dicyclomine HCl [From Bentyl] Allergy Unknown Dyspnea Verified 08/06/20 13:13 latex Allergy Unknown Rash/Hives Verified 08/06/20 13:13 diphenhydramine HCl Allergy Anaphylaxis Verified 08/06/20 13:13 [From Benadryl] adhesive AdvReac Unknown Itching Verified 08/06/20 13:13 ciprofloxacin AdvReac Unknown Nausea Verified 08/06/20 13:13 Macrolide Antibiotics AdvReac Unknown Nausea Verified 08/06/20 13:13 sulfamethoxazole AdvReac Unknown Unknown Verified 08/06/20 13:13 [From Bactrim] trimethoprim [From Bactrim] AdvReac Unknown Unknown Verified 08/06/20 13:13 Review of Systems ROS Statement: Those systems with pertinent positive or pertinent negative responses have been documented in the HPI. ROS Other: All systems not noted in ROS Statement are negative. EKG Findings - EKG Comments: EKG Findings:: Itchy performed at 12:18 normal sinus rhythm left axis, incomplete right bundle rate of 83 CO 136 QRS 96 QT/QTC 390/458 Past Medical History Past Medical History: Asthma, Chest Pain / Angina, COPD, CVA/TIA, Diabetes Mellitus, GERD/Reflux, Hearing Disorder / Deafness, Hyperlipidemia, Hypertension, Liver Disease, Osteoarthritis (OA), Pneumonia, Seizure Disorder, Sleep Apnea/CPAP/BIPAP Additional Past Medical History / Comment(s): states CVA at 35 yrs old with left sided weakness- uses cane., states seizure at 35 yrs old., DDD- back & neck pain., carpal tunnel syndrome., Cyst on kidney, uses cpap., states having abdominal pain with diarrhea and nausea ., Lives with his sister and has [employer] public guardian. History of Any Multi-Drug Resistant Organisms: None Reported Past Surgical History: Heart Catheterization, Orthopedic Surgery Additional Past Surgical History / Comment(s): Cysts removed, left thumb surgery, colonoscopy 08/24/2019 Past Anesthesia/Blood Transfusion Reactions: Motion Sickness, Postoperative Nausea & Vomiting (PONV) Past Psychological History: Anxiety, Bipolar, Depression, Schizophrenia Smoking Status: Current every day smoker Past Alcohol Use History: Occasional Past Drug Use History: None Reported - Past Family History Brother(s) Family Medical History: Diabetes Mellitus Additional Family Medical History / Comment(s): Patient has 2 brothers. One from complications from diabetes. The second is alive with diabetes. Sister(s) Family Medical History: Cancer Additional Family Medical History / Comment(s): Patient has one sister with laurie ast cancer. Patient does not have any children. Father Family Medical History: Cancer Additional Family Medical History / Comment(s): Father in his 40s or 50s from colon cancer. Mother Family Medical History: Cancer Additional Family Medical History / Comment(s): Mother at age 68 from lung cancer. General Exam Limitations: no limitations General appearance: alert, in no apparent distress Head exam: Present: atraumatic, normocephalic, normal inspection Eye exam: Present: normal appearance, PERRL, EOMI. Absent: scleral icterus, conjunctival injection, periorbital swelling ENT exam: Present: normal exam, normal oropharynx, mucous membranes moist Neck exam: Present: normal inspection, full ROM. Absent: tenderness, meningismus, lymphadenopathy Respiratory exam: Present: wheezes. Absent: normal lung sounds bilaterally, respiratory distress, rales, rhonchi, stridor Cardiovascular Exam: Present: regular rate, normal rhythm, normal heart sounds. Absent: systolic murmur, diastolic murmur, rubs, gallop, clicks GI/Abdominal exam: Present: soft, normal bowel sounds. Absent: distended, tenderness, guarding, rebound, rigid Extremities exam: Absent: pedal edema, calf tenderness Neurological exam: Present: alert Course Vital Signs 08/06/20 08/06/20 08/06/20 11:47 12:05 13:07 Temperature 98.0 F Pulse Rate 82 79 Pulse Rate [ 79 Ash Worker ] Respiratory 18 18 Rate Blood Pressure 137/88 O2 Sat by Pulse 98 Oximetry 08/06/20 13:18 Temperature Pulse Rate 76 Pulse Rate [ Ash Worker ] Respiratory 18 Rate Blood Pressure O2 Sat by Pulse Oximetry - Reevaluation(s) Reevaluation #1: 08/06/20 14:00 Patient reevaluated after breathing treatment states he greatly improved his symptoms patient be discharged in stable condition Chest Pain MDM - [facility] Labs EKG and chest x-ray reviewed patient has no acute findings. Patient did have moderate wheezing related to his heavy smoking. Patient will be discharged with a albuterol treatments at home. He does have an inhaler currently.I counseled the patient for smoking cessation for greater than 3 minutes. Return parameters were discussed. Disposition Clinical Impression: Acute bronchospasm, Atypical chest pain Disposition: HOME SELF-CARE Condition: Stable Instructions (If sedation given, give patient instructions): Bronchospasm (ED) Additional Instructions: Please return to the Emergency Department if symptoms worsen or any other concerns. Prescriptions: Ipratropium-Albuterol Nebulize [Duoneb 0.5 mg-3 mg/3 ml Soln] 3 ml INHALATION QID #1 box Is patient prescribed a controlled substance at d/c from ED?: No Referrals: Ramya Saul MD [Primary Care Provider] - 1-2 days Time of Disposition: 14:01
[2020-08-06 12:29] LABS: ALT 86 U/L (4-49); AST 48 U/L (17-59); African American GFR (CKD) >90 (>60 ml/min/1.73 sqM); Albumin 4.3 g/dL (3.5-5.0); Alkaline Phosphatase 79 U/L (38-126); Anion Gap 12 mmol/L; Blood Urea Nitrogen 12 mg/dL (9-20); Calcium 9.6 mg/dL (8.4-10.2); Carbon Dioxide 20 mmol/L (22-30); Chloride 107 mmol/L (98-107); Glucose 139 mg/dL (74-99); Lipase 75 U/L (23-300); Magnesium 1.8 mg/dL (1.6-2.3); Non-African American GFR(CKD) >90 (>60 ml/min/1.73 sqM); Sodium 139 mmol/L (137-145); Total Bilirubin 0.5 mg/dL (0.2-1.3)
[2020-08-06 12:40] LABS: INR 0.9 (<1.2)
--- NOTE | 2020-08-06 12:46 | XR ---
EXAMINATION TYPE: XR chest 2V DATE OF EXAM: 08/06/2020 COMPARISON: Chest x-ray May 26, 2020 HISTORY: Chest pain and left arm numbness. TECHNIQUE: Frontal and lateral views of the chest are obtained. FINDINGS: There is no focal air space opacity, pleural effusion, or pneumothorax seen. The cardiac silhouette size is stable and enlarged. The osseous structures are intact. IMPRESSION: Cardiomegaly without acute pulmonary process. No significant change from prior.
[2020-08-06 12:51] LABS: Partial Thromboplastin Time 19.3 sec (22.0-30.0)
[2020-08-06 13:19] VITALS: PULSE 76
== END 2020-08-06 14:20 | disposition home or self-care (01) ==
LOC: EC 11:40
DX: J98.01 Acute bronchospasm (principal); Z71.6 Tobacco abuse counseling; J44.9 Chronic obstructive pulmonary disease, unspecified; E11.9 Type 2 diabetes mellitus without complications; K21.9 Gastro-esophageal reflux disease without esophagitis; I10 Essential (primary) hypertension; E78.5 Hyperlipidemia, unspecified; G40.909 Epilepsy, unspecified, not intractable, without status epilepticus; G47.30 Sleep apnea, unspecified; F41.9 Anxiety disorder, unspecified; F31.9 Bipolar disorder, unspecified; F20.9 Schizophrenia, unspecified; F17.200 Nicotine dependence, unspecified, uncomplicated; Z79.84 Long term (current) use of oral hypoglycemic drugs; Z79.899 Other long term (current) drug therapy; Z79.51 Long term (current) use of inhaled steroids; Z79.82 Long term (current) use of aspirin; Z88.8 Allergy status to other drugs, medicaments and biological substances; Z91.040 Latex allergy status; Z88.1 Allergy status to other antibiotic agents; Z88.2 Allergy status to sulfonamides; Z86.73 Personal history of transient ischemic attack (TIA), and cerebral infarction without residual deficits; Z99.89 Dependence on other enabling machines and devices
CPT/HCPCS: 36415; 94640; 93005; 80053; 83690; 83735; 84484; 85610; 85730; 71046; 99285; 99406; 96374; J2930

== ENCOUNTER 2020-09-07 11:19 | Emergency (ER) | payer MEDICARE, OTHER ==
[2020-09-07 11:55] VITALS: RESP 16
[2020-09-07] MEDS ORDERED: SODIUM CHLORIDE 0.9% 1,000 ML IV STA (12:11)
[2020-09-07] MEDS ORDERED: ONDANSETRON 4 MG/2 ML VIAL IVP STA (12:11)
[2020-09-07] MEDS ORDERED: KETOROLAC 15 MG/ML 1 ML VIAL IVP STA (12:12)
[2020-09-07 12:43] VITALS: TEMP 97.6
[2020-09-07 12:47] LABS: Appearance,Urine Clear (Clear); Bilirubin,Urine Negative (Negative); Blood,Urine Negative (Negative); Color,Urine Colorless; Glucose,Urine (UA) Negative (Negative); Ketones,Urine Negative (Negative); Leukocyte Esterase,Urine Negative (Negative); Nitrite,Urine Negative (Negative); PH, Urine 6.5 (5.0-8.0); Protein,Urine Negative (Negative); Specific Gravity,Urine 1.002 (1.001-1.035); Urobilinogen,Urine <2.0 mg/dL (<2.0)
[2020-09-07 12:59] LABS: ALT 70 U/L (4-49); AST 33 U/L (17-59); African American GFR (CKD) >90 (>60 ml/min/1.73 sqM); Albumin 4.1 g/dL (3.5-5.0); Alkaline Phosphatase 66 U/L (38-126); Anion Gap 8 mmol/L; Blood Urea Nitrogen 9 mg/dL (9-20); Calcium 9.9 mg/dL (8.4-10.2); Carbon Dioxide 26 mmol/L (22-30); Chloride 110 mmol/L (98-107); Glucose 76 mg/dL (74-99); Lipase 79 U/L (23-300); Non-African American GFR(CKD) >90 (>60 ml/min/1.73 sqM); Potassium 3.9 mmol/L (3.5-5.1); Sodium 144 mmol/L (137-145); Total Bilirubin 0.4 mg/dL (0.2-1.3); Total Protein 6.4 g/dL (6.3-8.2)
[2020-09-07 13:04] LABS: Basophils % (A) 0 %; Eosinophils # (A) 0.2 k/uL (0-0.7); Eosinophils % (A) 2 %; HCT 45.8 % (39.0-53.0); HGB 15.5 gm/dL (13.0-17.5); Lymphocytes # (A) 1.5 k/uL (1.0-4.8); Lymphocytes % (A) 17 %; MCHC 33.9 g/dL (31.0-37.0); MCV 85.6 fL (80.0-100.0); Mean Platelet Volume 7.2; Monocytes # (A) 0.5 k/uL (0-1.0); Monocytes % (A) 6 %; Neutrophils # (A) 6.5 k/uL (1.3-7.7); Neutrophils % (A) 74 %; Platelet Count 235 k/uL (150-450); RBC 5.35 m/uL (4.30-5.90); RDW 13.6 % (11.5-15.5); WBC 8.8 k/uL (3.8-10.6)
--- NOTE | 2020-09-07 13:37 | CT ---
EXAMINATION TYPE: CT abdomen pelvis w con DATE OF EXAM: 09/07/2020 COMPARISON: 07/09/2020 HISTORY: nausea, vomiting, diarrhea, cramping CT DLP: 1068.1 mGycm Automated exposure control for dose reduction was used. TECHNIQUE: Helical acquisition of images was performed from the lung bases through the pelvis. CONTRAST: Performed without Oral Contrast and with IV Contrast, patient injected with 100 mL of Isovue 300. FINDINGS: The lung bases are clear. The gallbladder is normal and there is no distention, wall thickening, pericholecystic fluid or galls tones. There is no biliary ductal dilatation. There is a stable simple cyst of the spleen with a thinly calcified rim. There is no focal mass or or ganomegaly involving the liver pancreas or adrenal glands. The kidneys excrete contrast promptly and symmetrically and there is no solid renal mass or hydroneph rosis. There are multiple small simple cortical cysts. There is no retroperitoneal adenopathy or hemo rrhage in the caliber of the abdominal aorta is normal. The bowel loops are normal in caliber and there is no evidence of dilatation or obstruction. No infla mmatory changes are identified in the mesentery. There is no pelvic mass, free fluid, adenopathy or abscess. The osseous structures and soft tissues are unremarkable. IMPRESSION: Etiology of the patient's pain is indeterminate by CT. No acute changes are identified. Exam is stabl e when compared to the prior study.
--- NOTE | 2020-09-07 13:40 | ED ---
General Adult HPI - General Chief complaint: Nausea/Vomiting/Diarrhea Stated complaint: NVD Time Seen by Provider: 09/07/20 11:39 Source: patient Mode of arrival: ambulatory Limitations: no limitations - History of Present Illness Initial comments: 50-year-old male with a past medical history of CVA with left-sided weakness, COPD, NIDDM, GERD, hyperlipidemia, hypertension presents to the emergency room for a chief complaint of diarrhea. Patient states he has had nausea vomiting and diarrhea for the past week. States he has been vomiting about 2 times per day. His diarrhea happens in the morning and then resolves throat the day. He has also had some mild lower abdominal pain. No fevers. Patient states he has been taking his medications as directed. Has no other complaints at this time including shortness of breath, chest pain, headache, or visual changes. - Related Data Home Medications Medication Instructions Recorded Confirmed ARIPiprazole [Abilify] 10 mg PO HS 01/19/19 08/06/20 OLANZapine [ZyPREXA] 10 mg PO HS 01/19/19 08/06/20 metFORMIN HCL 1,000 mg PO QAM 04/30/19 08/06/20 glipiZIDE [Glucotrol] 10 mg PO AC-BID 01/19/20 08/06/20 Albuterol Sulfate [Proair Hfa] 2 puff INHALATION RT-Q6H PRN 02/21/20 08/06/20 Dicyclomine [Bentyl] 20 mg PO QID 04/12/20 08/06/20 Ergocalciferol [Vitamin D2 50,000 unit PO MO 04/12/20 08/06/20 (DRISDOL)] Fluticasone Propionate [Flovent 2 puff INHALATION RT-BID 04/12/20 08/06/20 Diskus] Loperamide [Imodium] 2 mg PO QID PRN 04/12/20 08/06/20 Omeprazole 40 mg PO DAILY 04/12/20 08/06/20 Tamsulosin [Flomax] 0.4 mg PO DAILY 04/12/20 08/06/20 Aspirin EC [Ecotrin Low Dose] 81 mg PO DAILY 07/09/20 08/06/20 sitaGLIPtin [Januvia] 25 mg PO DAILY 07/09/20 08/06/20 Calcium Carbonate [Tums] 500 mg PO TID PRN 08/06/20 08/06/20 Previous Rx's Medication Instructions Recorded Phenobarb/Hyoscy/Atropine/Scop 16.2 mg PO Q6H #12 tablet 07/09/20 [ Tab] Ipratropium-Albuterol Nebulize 3 ml INHALATION QID #1 box 08/06/20 [Duoneb 0.5 mg-3 mg/3 ml Soln] Ondansetron [Zofran ODT] 4 mg PO Q8HR PRN #15 tab 09/07/20 Allergies Allergy/AdvReac Type Severity Reaction Status Date / Time dicyclomine HCl [From Bentyl] Allergy Unknown Dyspnea Verified 09/07/20 11:32 latex Allergy Unknown Rash/Hives Verified 09/07/20 11:32 diphenhydramine HCl Allergy Anaphylaxis Verified 09/07/20 11:32 [From Benadryl] adhesive AdvReac Unknown Itching Verified 09/07/20 11:32 ciprofloxacin AdvReac Unknown Nausea Verified 09/07/20 11:32 Macrolide Antibiotics AdvReac Unknown Nausea Verified 09/07/20 11:32 sulfamethoxazole AdvReac Unknown Unknown Verified 09/07/20 11:32 [From Bactrim] trimethoprim [From Bactrim] AdvReac Unknown Unknown Verified 09/07/20 11:32 Review of Systems ROS Statement: Those systems with pertinent positive or pertinent negative responses have been documented in the HPI. ROS Other: All systems not noted in ROS Statement are negative. 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 History of Any Multi-Drug Resistant Organisms: None Reported Past Surgical History: Heart Catheterization, Orthopedic Surgery Additional Past Surgical History / Comment(s): Cysts removed, left thumb surgery, colonoscopy 08/24/2019 Past Anesthesia/Blood Transfusion Reactions: Motion Sickness, Postoperative Nausea & Vomiting (PONV) Past Psychological History: Anxiety, Bipolar, Depression, Schizophrenia Smoking Status: Current every day smoker Past Alcohol Use History: Occasional Past Drug Use History: None Reported - Past Family History Brother(s) Family Medical History: Diabetes Mellitus Additional Family Medical History / Comment(s): Patient has 2 brothers. One from complications from diabetes. The second is alive with diabetes. Sister(s) Family Medical History: Cancer Additional Family Medical History / Comment(s): Patient has one sister with breast cancer. Patient does not have any children. Father Family Medical History: Cancer Additional Family Medical History / Comment(s): Father in his 40s or 50s from colon cancer. Mother Family Medical History: Cancer Additional Family Medical History / Comment(s): Mother at age 68 from lung cancer. General Exam Limitations: no limitations General appearance: alert, in no apparent distress Head exam: Present: atraumatic, normocephalic, normal inspection Eye exam: Present: normal appearance, PERRL, EOMI. Absent: scleral icterus, conjunctival injection, periorbital swelling ENT exam: Present: normal exam, mucous membranes moist Neck exam: Present: normal inspection, full ROM. Absent: tenderness, meningismus, lymphadenopathy Respiratory exam: Present: normal lung sounds bilaterally. Absent: respiratory distress, wheezes, rales, rhonchi, stridor Cardiovascular Exam: Present: regular rate, normal rhythm, normal heart sounds. Absent: systolic murmur, diastolic murmur, rubs, gallop, clicks GI/Abdominal exam: Present: soft, tenderness (mild LLQ tenderness no guarding or rebound), normal bowel sounds. Absent: distended, guarding, rebound, rigid Neurological exam: Present: alert Course Vital Signs 09/07/20 09/07/20 09/07/20 11:29 11:53 12:41 Temperature 98.2 F 97.9 F 97.6 F Pulse Rate 56 L 63 67 Respiratory 18 16 16 Rate Blood Pressure 124/83 142/89 O2 Sat by Pulse 100 97 99 Oximetry Medical Decision Making - Medical Decision Making Vitals are stable. Patient is well-appearing. He does have some mild left lower quadrant tenderness however no guarding or rebound. CBC unremarkable. White blood cell count normal at 8.8. CMP is unremarkable. Urinalysis is negative. CT was obtained CT shows no acute changes identified. Exam is stable compared to prior study. Patient reevaluated. Pain has improved after Toradol. Repeat abdominal exam reveals a nontender abdomen. No vomiting in the emergency room. At this time patient is stable for discharge home with a likely viral gastroenteritis. We will write patient a prescription for Zofran for nausea. He will follow up with his doctor. He will return for any worsening s ymptoms. - Lab Data Result diagrams: 09/07/20 12:36 09/07/20 12:36 Lab Results 09/07/20 09/07/20 09/07/20 Range/Units 12:36 12:36 12:36 WBC 8.8 (3.8-10.6) k/uL RBC 5.35 (4.30-5.90) m/uL Hgb 15.5 (13.0-17.5) gm/dL Hct 45.8 (39.0-53.0) % MCV 85.6 (80.0-100.0) fL MCH 29.0 (25.0-35.0) pg MCHC 33.9 (31.0-37.0) g/dL RDW 13.6 (11.5-15.5) % Plt Count 235 (150-450) k/uL MPV 7.2 Neutrophils % 74 % Lymphocytes % 17 % Monocytes % 6 % Eosinophils % 2 % Basophils % 0 % Neutrophils # 6.5 (1.3-7.7) k/uL Lymphocytes # 1.5 (1.0-4.8) k/uL Monocytes # 0.5 (0-1.0) k/uL Eosinophils # 0.2 (0-0.7) k/uL Basophils # 0.0 (0-0.2) k/uL Sodium 144 (137-145) mmol/L Potassium 3.9 (3.5-5.1) mmol/L Chloride 110 H (98-107) mmol/L Carbon Dioxide 26 (22-30) mmol/L Anion Gap 8 mmol/L BUN 9 (9-20) mg/dL Creatinine 0.70 (0.66-1.25) mg/dL Est GFR (CKD-EPI)AfAm >90 (>60 ml/min/1.73 sqM) Est GFR (CKD-EPI)NonAf >90 (>60 ml/min/1.73 sqM) Glucose 76 (74-99) mg/dL Calcium 9.9 (8.4-10.2) mg/dL Total Bilirubin 0.4 (0.2-1.3) mg/dL AST 33 (17-59) U/L ALT 70 H (4-49) U/L Alkaline Phosphatase 66 (38-126) U/L Total Protein 6.4 (6.3-8.2) g/dL Albumin 4.1 (3.5-5.0) g/dL Lipase 79 (23-300) U/L Urine Color Colorless Urine Appearance Clear (Clear) Urine pH 6.5 (5.0-8.0) Ur Specific [place] 1.002 (1.001-1.035) Urine Protein Negative (Negative) Urine Glucose (UA) Negative (Negative) Urine Ketones Negative (Negative) Urine Blood Negative (Negative) Urine Nitrite Negative (Negative) Urine Bilirubin Negative (Negative) Urine Urobilinogen <2.0 (<2.0) mg/dL Ur Leukocyte Esterase Negative (Negative) Disposition Clinical Impression: Nausea, vomiting, and diarrhea Disposition: HOME SELF-CARE Condition: Good Instructions (If sedation given, give patient instructions): Acute Nausea and Vomiting (ED), Acute Diarrhea (ED) Additional Instructions: Please take medications as directed. Please follow-up with primary care in 1-2 days. Return to the emergency room for any worsening symptoms. Prescriptions: Ondansetron [Zofran ODT] 4 mg PO Q8HR PRN #15 tab PRN Reason: Nausea Is patient prescribed a controlled substance at d/c from ED?: No Referrals: [facility] [Primary Care Provider] - 1-2 days Time of Disposition: 13:48
[2020-09-07 13:52] VITALS: BP 126/77; PULSE 71
== END 2020-09-07 14:18 | disposition home or self-care (01) ==
LOC: EC 11:19
DX: R11.2 Nausea with vomiting, unspecified (principal); R19.7 Diarrhea, unspecified; E11.9 Type 2 diabetes mellitus without complications; E78.5 Hyperlipidemia, unspecified; F17.200 Nicotine dependence, unspecified, uncomplicated; F32.9 Major depressive disorder, single episode, unspecified; F41.9 Anxiety disorder, unspecified; I10 Essential (primary) hypertension; J44.9 Chronic obstructive pulmonary disease, unspecified; K21.9 Gastro-esophageal reflux disease without esophagitis; M19.90 Unspecified osteoarthritis, unspecified site; Z79.51 Long term (current) use of inhaled steroids; Z79.82 Long term (current) use of aspirin; Z79.84 Long term (current) use of oral hypoglycemic drugs; Z79.899 Other long term (current) drug therapy
CPT/HCPCS: 36415; 80053; 83690; 85025; 81003; 74177; 99284; 96374; 96375; 96361; J2405; J1885; Q9967

== ENCOUNTER 2020-09-19 22:02 | Emergency (ER) | payer MEDICARE, OTHER ==
[2020-09-19 22:19] VITALS: BP 149/103; RESP 18; TEMP 98.7
[2020-09-19] MEDS ORDERED: SODIUM CHLORIDE 0.9% 500 ML 500 ML IV STA (22:39)
--- NOTE | 2020-09-19 22:43 | ED ---
General Adult HPI - General Chief complaint: Shortness of Breath Stated complaint: SOB Time Seen by Provider: 09/19/20 22:17 Source: patient, EMS Mode of arrival: EMS Limitations: no limitations - History of Present Illness Initial comments: 50-year-old male patient presents to the emergency department today for evaluation of shortness of breath, cough, chest pain. Patient states symptoms started around 2030 this evening. Reports substernal chest pain. Denies radiation through to his back. States he has been staying in a homeless [facility] and unable to do his breathing treatments which he thinks is causing his symptoms. He states he has had fever. Denies any nausea or vomiting. Denies constipation or diarrhea. Denies any rash. Patient denies any recent abdominal pain, constipation, numbness, tingling, dizziness, weakness, hematuria, dysuria, urinary urgency, urinary frequency, headache, visual changes, or any other complaints. - Related Data Home Medications Medication Instructions Recorded Confirmed ARIPiprazole [Abilify] 10 mg PO HS 01/19/19 08/06/20 OLANZapine [ZyPREXA] 10 mg PO HS 01/19/19 08/06/20 metFORMIN HCL 1,000 mg PO QAM 04/30/19 08/06/20 glipiZIDE [Glucotrol] 10 mg PO AC-BID 01/19/20 08/06/20 Albuterol Sulfate [Proair Hfa] 2 puff INHALATION RT-Q6H PRN 02/21/20 08/06/20 Dicyclomine [Bentyl] 20 mg PO QID 04/12/20 08/06/20 Ergocalciferol [Vitamin D2 50,000 unit PO MO 04/12/20 08/06/20 (DRISDOL)] Fluticasone Propionate [Flovent 2 puff INHALATION RT-BID 04/12/20 08/06/20 Diskus] Loperamide [Imodium] 2 mg PO QID PRN 04/12/20 08/06/20 Omeprazole 40 mg PO DAILY 04/12/20 08/06/20 Tamsulosin [Flomax] 0.4 mg PO DAILY 04/12/20 08/06/20 Aspirin EC [Ecotrin Low Dose] 81 mg PO DAILY 07/09/20 08/06/20 sitaGLIPtin [Januvia] 25 mg PO DAILY 07/09/20 08/06/20 Calcium Carbonate [Tums] 500 mg PO TID PRN 08/06/20 08/06/20 Previous Rx's Medication Instructions Recorded Phenobarb/Hyoscy/Atropine/Scop 16.2 mg PO Q6H #12 tablet 07/09/20 [ Tab] Ipratropium-Albuterol Nebulize 3 ml INHALATION QID #1 box 08/06/20 [Duoneb 0.5 mg-3 mg/3 ml Soln] Ondansetron [Zofran ODT] 4 mg PO Q8HR PRN #15 tab 09/07/20 Allergies Allergy/AdvReac Type Severity Reaction Status Date / Time dicyclomine HCl [From Bentyl] Allergy Unknown Dyspnea Verified 09/19/20 22:19 latex Allergy Unknown Rash/Hives Verified 09/19/20 22:19 diphenhydramine HCl Allergy Anaphylaxis Verified 09/19/20 22:19 [From Benadryl] adhesive AdvReac Unknown Itching Verified 09/19/20 22:19 ciprofloxacin AdvReac Unknown Nausea Verified 09/19/20 22:19 Macrolide Antibiotics AdvReac Unknown Nausea Verified 09/19/20 22:19 sulfamethoxazole AdvReac Unknown Unknown Verified 09/19/20 22:19 [From Bactrim] trimethoprim [From Bactrim] AdvReac Unknown Unknown Verified 09/19/20 22:19 Review of Systems ROS Statement: Those systems with pertinent positive or pertinent negative responses have been documented in the HPI. ROS Other: All systems not noted in ROS Statement are negative. 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 History of Any Multi-Drug Resistant Organisms: None Reported Past Surgical History: Heart Catheterization, Orthopedic Surgery Additional Past Surgical History / Comment(s): Cysts removed, left thumb surgery, colonoscopy 08/24/2019 Past Anesthesia/Blood Transfusion Reactions: Motion Sickness, Postoperative Nausea & Vomiting (PONV) Past Psychological History: Anxiety, Bipolar, Depression, Schizophrenia Smoking Status: Current every day smoker Past Alcohol Use History: Occasional Past Drug Use History: None Reported - Past Family History Brother(s) Family Medical History: Diabetes Mellitus Additional Family Medical History / Comment(s): Patient has 2 brothers. One from complications from diabetes. The second is alive with diabetes. Sister(s) Family Medical History: Cancer Additional Family Medical History / Comment(s): Patient has one sister with breast cancer. Patient does not have any children. Father Family Medical History: Cancer Additional Family Medical History / Comment(s): Father in his 40s or 50s from colon cancer. Mother Family Medical History: Cancer Additional Family Medical History / Comment(s): Mother at age 68 from lung cancer. General Exam Limitations: no limitations General appearance: alert, in no apparent distress, other (This is a well- developed, well-nourished adult male patient in no acute distress. Vital signs upon presentation are temperature 98.7F, pulse 69, respirations 18, blood pressure 149/103, pulse ox 98% on room air.) Eye exam: Present: normal appearance, PERRL, EOMI. Absent: scleral icterus, conjunctival injection, periorbital swelling ENT exam: Present: normal exam, normal oropharynx, mucous membranes moist Respiratory exam: Present: wheezes (Coarse expiratory wheezing noted in the posterior lung robins). Absent: respiratory distress, rales, rhonchi, stridor Cardiovascular Exam: Present: regular rate, normal rhythm, normal heart sounds. Absent: systolic murmur, diastolic murmur, rubs, gallop, clicks GI/Abdominal exam: Present: soft, normal bowel sounds. Absent: distended, tenderness, guarding, rebound, rigid Neurological exam: Present: alert, oriented X3, CN II-XII intact Psychiatric exam: Present: normal affect, normal mood Skin exam: Present: warm, dry, intact, normal color. Absent: rash Course Vital Signs 09/19/20 09/19/20 22:16 22:19 Temperature 98.7 F Pulse Rate 69 Respiratory 18 18 Rate Blood Pressure 149/103 O2 Sat by Pulse 98 Oximetry EKG Findings - EKG Comments: EKG Findings:: EKG obtained at 2210 shows normal sinus rhythm with incomplete right bundle branch block. Ventricular rate is 67, WV interval 140, QRS duration 100, QTC 414, QTC 437. No changes from previous EKG. Medical Decision Making - Medical Decision Making 50-year-old male patient with past medical history significant for coronary artery disease and asthma presents the emergency department today for evaluation of chest pain and shortness of breath. Patient states he is staying at a homeless [facility] unable to use his inhaler. Physical examination did reveal x- ray wheezing in the posterior lung robins. Abdomen soft and nontender. EKG is unremarkable. Labs are normal equal. Chest x-ray is negative. He'll be discharged with Pro Air inhaler. Instructed to follow-up with his primary care physician for recheck in 1-2 days. Return parameters were discussed in detail. He verbalizes understanding and agrees with this plan. Case discussed with my attending Dr. Smith. - Lab Data Result diagrams: 09/19/20 22:52 Lab Results 09/19/20 Range/Units 22:52 WBC 7.0 (3.8-10.6) k/uL RBC 5.14 (4.30-5.90) m/uL Hgb 15.0 (13.0-17.5) gm/dL Hct 44.2 (39.0-53.0) % MCV 85.9 (80.0-100.0) fL MCH 29.1 (25.0-35.0) pg MCHC 33.9 (31.0-37.0) g/dL RDW 13.7 (11.5-15.5) % Plt Count 247 (150-450) k/uL MPV 7.3 Neutrophils % 68 % Lymphocytes % 22 % Monocytes % 6 % Eosinophils % 3 % Basophils % 0 % Neutrophils # 4.8 (1.3-7.7) k/uL Lymphocytes # 1.5 (1.0-4.8) k/uL Monocytes # 0.4 (0-1.0) k/uL Eosinophils # 0.2 (0-0.7) k/uL Basophils # 0.0 (0-0.2) k/uL - Radiology Data Radiology results: report reviewed, image reviewed One view x-ray the chest is obtained. Report is reviewed in its entirety. Impression by Dr. Wu shows no active cardiopulmonary disease. No change per Disposition Clinical Impression: Chest pain, Asthma Disposition: HOME SELF-CARE Condition: Good Instructions (If sedation given, give patient instructions): Asthma (ED), Chest Pain (ED) Is patient prescribed a controlled substance at d/c from ED?: No Referrals: [facility] [Primary Care Provider] - 1-2 days
[2020-09-19 23:03] LABS: Basophils % (A) 0 %; Eosinophils # (A) 0.2 k/uL (0-0.7); Eosinophils % (A) 3 %; HCT 44.2 % (39.0-53.0); Lymphocytes # (A) 1.5 k/uL (1.0-4.8); Lymphocytes % (A) 22 %; MCH 29.1 pg (25.0-35.0); MCHC 33.9 g/dL (31.0-37.0); MCV 85.9 fL (80.0-100.0); Mean Platelet Volume 7.3; Monocytes # (A) 0.4 k/uL (0-1.0); Monocytes % (A) 6 %; Neutrophils # (A) 4.8 k/uL (1.3-7.7); Neutrophils % (A) 68 %; Platelet Count 247 k/uL (150-450); RBC 5.14 m/uL (4.30-5.90); RDW 13.7 % (11.5-15.5)
--- NOTE | 2020-09-20 05:37 | XR ---
EXAMINATION TYPE: XR chest 1V portable DATE OF EXAM: 09/19/2020 COMPARISON: 08/06/2020 HISTORY: Chest pain TECHNIQUE: FINDINGS: There is no heart failure nor confluent pneumonic infiltrate. Costophrenic angles are clear . There are no hilar masses. Bony thorax is intact. IMPRESSION: No active cardiopulmonary disease. No change.
[2020-09-20 05:52] LABS: ALT 77 U/L (4-49); AST 43 U/L (17-59); African American GFR (CKD) >90 (>60 ml/min/1.73 sqM); Albumin 4.4 g/dL (3.5-5.0); Alkaline Phosphatase 87 U/L (38-126); Anion Gap 12 mmol/L; Blood Urea Nitrogen 12 mg/dL (9-20); Calcium 9.6 mg/dL (8.4-10.2); Carbon Dioxide 22 mmol/L (22-30); Chloride 105 mmol/L (98-107); Glucose 170 mg/dL (74-99); Non-African American GFR(CKD) >90 (>60 ml/min/1.73 sqM); Potassium 3.7 mmol/L (3.5-5.1); Sodium 139 mmol/L (137-145); Total Bilirubin 0.4 mg/dL (0.2-1.3); Total Protein 6.8 g/dL (6.3-8.2)
[2020-09-20 05:54] LABS: INR 0.9 (<1.2); Partial Thromboplastin Time 23.1 sec (22.0-30.0); Prothrombin Time 9.9 sec (9.0-12.0)
[2020-09-20 06:13] VITALS: PULSE 68
== END 2020-09-20 00:47 | disposition home or self-care (01) ==
LOC: EC 22:02
DX: R07.89 Other chest pain (principal); F41.9 Anxiety disorder, unspecified; F31.9 Bipolar disorder, unspecified; F20.9 Schizophrenia, unspecified; J44.9 Chronic obstructive pulmonary disease, unspecified; I20.9 Angina pectoris, unspecified; E11.9 Type 2 diabetes mellitus without complications; K21.9 Gastro-esophageal reflux disease without esophagitis; E78.5 Hyperlipidemia, unspecified; I10 Essential (primary) hypertension; M19.90 Unspecified osteoarthritis, unspecified site; G40.909 Epilepsy, unspecified, not intractable, without status epilepticus; G47.33 Obstructive sleep apnea (adult) (pediatric); Z20.822 Contact with and (suspected) exposure to COVID-19; Z79.51 Long term (current) use of inhaled steroids; Z79.82 Long term (current) use of aspirin; Z79.84 Long term (current) use of oral hypoglycemic drugs; Z79.899 Other long term (current) drug therapy; F17.200 Nicotine dependence, unspecified, uncomplicated; Z88.1 Allergy status to other antibiotic agents; Z88.2 Allergy status to sulfonamides; Z88.8 Allergy status to other drugs, medicaments and biological substances; Z91.040 Latex allergy status; Z91.048 Other nonmedicinal substance allergy status; Z99.89 Dependence on other enabling machines and devices; Z86.73 Personal history of transient ischemic attack (TIA), and cerebral infarction without residual deficits; Z95.5 Presence of coronary angioplasty implant and graft
CPT/HCPCS: 36415; 71045; 80053; 83735; 84484; 85025; 85610; 85730; 87635; 93005; 94640; 99285

== ENCOUNTER 2020-09-21 13:11 | Emergency (ER) | payer MEDICARE, OTHER ==
[2020-09-21 13:19] VITALS: BP 155/68; TEMP 98.2
[2020-09-21] MEDS ORDERED: IPRATROPIUM-ALBUTEROL 3 ML NEB INHALATION STA (13:36)
[2020-09-21 14:28] VITALS: RESP 16
[2020-09-21 14:59] VITALS: PULSE 82
--- NOTE | 2020-09-21 15:04 | XR ---
EXAMINATION TYPE: XR chest 2V DATE OF EXAM: 09/21/2020 COMPARISON: 09/19/2020. HISTORY: Cough TECHNIQUE: Frontal and lateral views of the chest are obtained. FINDINGS: There is no focal air space opacity, pleural effusion, or pneumothorax seen. The cardiac silhouette size is within normal limits. The osseous structures are intact. IMPRESSION: No acute cardiopulmonary process.
--- NOTE | 2020-09-21 15:19 | ED ---
URI HPI - General Chief Complaint: Upper Respiratory Infection Stated Complaint: no appetite Time Seen by Provider: 09/21/20 13:15 Source: patient, RN notes reviewed Mode of arrival: ambulatory Limitations: no limitations - History of Present Illness Initial Comments: This a 50-year-old male presents emergency Department chief complaint runny nose, cough. Patient states that he was here couple days for similar complaints. He states does have an episode dementia his blood sugar today. No chest pain no headache or dizziness. No loss conscious. Patient states he feels like he has a cold. Patient's concerned about possible Covid. - Related Data Home Medications Medication Instructions Recorded Confirmed ARIPiprazole [Abilify] 10 mg PO HS 01/19/19 08/06/20 OLANZapine [ZyPREXA] 10 mg PO HS 01/19/19 08/06/20 metFORMIN HCL 1,000 mg PO QAM 04/30/19 08/06/20 glipiZIDE [Glucotrol] 10 mg PO AC-BID 01/19/20 08/06/20 Albuterol Sulfate [Proair Hfa] 2 puff INHALATION RT-Q6H PRN 02/21/20 08/06/20 Dicyclomine [Bentyl] 20 mg PO QID 04/12/20 08/06/20 Ergocalciferol [Vitamin D2 50,000 unit PO MO 04/12/20 08/06/20 (DRISDOL)] Fluticasone Propionate [Flovent 2 puff INHALATION RT-BID 04/12/20 08/06/20 Diskus] Loperamide [Imodium] 2 mg PO QID PRN 04/12/20 08/06/20 Omeprazole 40 mg PO DAILY 04/12/20 08/06/20 Tamsulosin [Flomax] 0.4 mg PO DAILY 04/12/20 08/06/20 Aspirin EC [Ecotrin Low Dose] 81 mg PO DAILY 07/09/20 08/06/20 sitaGLIPtin [Januvia] 25 mg PO DAILY 07/09/20 08/06/20 Calcium Carbonate [Tums] 500 mg PO TID PRN 08/06/20 08/06/20 Previous Rx's Medication Instructions Recorded Phenobarb/Hyoscy/Atropine/Scop 16.2 mg PO Q6H #12 tablet 07/09/20 [ Tab] Ipratropium-Albuterol Nebulize 3 ml INHALATION QID #1 box 08/06/20 [Duoneb 0.5 mg-3 mg/3 ml Soln] Ondansetron [Zofran ODT] 4 mg PO Q8HR PRN #15 tab 09/07/20 Allergies Allergy/AdvReac Type Severity Reaction Status Date / Time dicyclomine HCl [From Bentyl] Allergy Unknown Dyspnea Verified 09/21/20 13:15 latex Allergy Unknown Rash/Hives Verified 09/21/20 13:15 diphenhydramine HCl Allergy Anaphylaxis Verified 09/21/20 13:15 [From Benadryl] adhesive AdvReac Unknown Itching Verified 09/21/20 13:15 ciprofloxacin AdvReac Unknown Nausea Verified 09/21/20 13:15 Macrolide Antibiotics AdvReac Unknown Nausea Verified 09/21/20 13:15 sulfamethoxazole AdvReac Unknown Unknown Verified 09/21/20 13:15 [From Bactrim] trimethoprim [From Bactrim] AdvReac Unknown Unknown Verified 09/21/20 13:15 Review of Systems ROS Statement: Those systems with pertinent positive or pertinent negative responses have been documented in the HPI. ROS Other: All systems not noted in ROS Statement are negative. 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 History of Any Multi-Drug Resistant Organisms: None Reported Past Surgical History: Heart Catheterization, Orthopedic Surgery Additional Past Surgical History / Comment(s): Cysts removed, left thumb surgery, colonoscopy 08/24/2019 Past Anesthesia/Blood Transfusion Reactions: Motion Sickness, Postoperative Nausea & Vomiting (PONV) Past Psychological History: Anxiety, Bipolar, Depression, Schizophrenia Smoking Status: Current every day smoker Past Alcohol Use History: None Reported Past Drug Use History: None Reported - Past Family History Brother(s) Family Medical History: Diabetes Mellitus Additional Family Medical History / Comment(s): Patient has 2 brothers. One from complications from diabetes. The second is alive with diabetes. Sister(s) Family Medical History: Cancer Additional Family Medical History / Comment(s): Patient has one sister with breast cancer. Patient does not have any children. Father Family Medical History: Cancer Additional Family Medical History / Comment(s): Father in his 40s or 50s from colon cancer. Mother Family Medical History: Cancer Additional Family Medical History / Comment(s): Mother at age 68 from lung cancer. General Exam Limitations: no limitations General appearance: alert, in no apparent distress Head exam: Present: atraumatic, normocephalic, normal inspection Eye exam: Present: normal appearance, PERRL, EOMI. Absent: scleral icterus, conjunctival injection, periorbital swelling ENT exam: Present: normal exam, normal oropharynx, mucous membranes moist, TM's normal bilaterally Neck exam: Present: normal inspection, full ROM. Absent: tenderness, meningismus, lymphadenopathy Respiratory exam: Present: normal lung sounds bilaterally. Absent: respiratory distress, wheezes, rales, rhonchi, stridor Cardiovascular Exam: Present: regular rate, normal rhythm, normal heart sounds. Absent: systolic murmur, diastolic murmur, rubs, gallop, clicks GI/Abdominal exam: Present: soft, normal bowel sounds. Absent: distended, tenderness, guarding, rebound, rigid Course Vital Signs 09/21/20 09/21/20 09/21/20 13:17 14:26 14:45 Temperature 98.2 F Pulse Rate 100 80 Respiratory 18 16 Rate Blood Pressure 155/68 O2 Sat by Pulse 100 Oximetry 09/21/20 14:58 Temperature Pulse Rate 82 Respiratory Rate Blood Pressure O2 Sat by Pulse Oximetry Medical Decision Making - Medical Decision Making Patient recent full workup which was negative. Patient's blood sugar is not severely elevated . X-rays negative covid Testing is negative patient be discharged in stable condition - Lab Data Lab Results 09/21/20 09/21/20 Range/Units 14:17 15:14 POC Glucose (mg/dL) 221 H (75-99) mg/dL POC Glu Bioinformatics Technician ID Marisela Olivia Coronavirus (PCR) Not Detected (Not Detectd) Disposition Clinical Impression: Acute upper respiratory infection Disposition: HOME SELF-CARE Condition: Stable Instructions (If sedation given, give patient instructions): Upper Respiratory Infection (ED) Additional Instructions: Please return to the Emergency Department if symptoms worsen or any other concerns. Is patient prescribed a controlled substance at d/c from ED?: No Referrals: [facility] [Primary Care Provider] - 1-2 days Time of Disposition: 15:19
[2020-09-21 15:24] LABS: Glucose,Whole Blood 221 mg/dL (75-99)
== END 2020-09-21 15:25 | disposition home or self-care (01) ==
LOC: EC 13:11
DX: J06.9 Acute upper respiratory infection, unspecified (principal); J44.9 Chronic obstructive pulmonary disease, unspecified; E11.9 Type 2 diabetes mellitus without complications; K21.9 Gastro-esophageal reflux disease without esophagitis; E78.5 Hyperlipidemia, unspecified; I10 Essential (primary) hypertension; M19.90 Unspecified osteoarthritis, unspecified site; Z86.73 Personal history of transient ischemic attack (TIA), and cerebral infarction without residual deficits; F41.9 Anxiety disorder, unspecified; F32.9 Major depressive disorder, single episode, unspecified; F17.200 Nicotine dependence, unspecified, uncomplicated; Z20.822 Contact with and (suspected) exposure to COVID-19
CPT/HCPCS: 36415; 71046; 81003; 87635; 94640; 99283; 99284

== ENCOUNTER 2020-09-21 19:23 | Emergency (ER) | payer MEDICARE, OTHER ==
[2020-09-21 19:33] VITALS: PULSE 67; TEMP 98.5
[2020-09-21 20:03] LABS: Appearance,Urine Clear (Clear); Bilirubin,Urine Negative (Negative); Blood,Urine Negative (Negative); Color,Urine Light Yellow; Glucose,Urine (UA) Negative (Negative); Ketones,Urine Negative (Negative); Leukocyte Esterase,Urine Negative (Negative); Nitrite,Urine Negative (Negative); Protein,Urine Negative (Negative); Specific Gravity,Urine 1.006 (1.001-1.035); Urobilinogen,Urine <2.0 mg/dL (<2.0)
[2020-09-21 20:26] VITALS: RESP 16
--- NOTE | 2020-09-21 20:31 | ED ---
Male Urogenital HPI - General Chief complaint: Urogenital Stated complaint: Abd Pain Time Seen by Provider: 09/21/20 19:53 Source: patient Mode of arrival: ambulatory Limitations: no limitations - History of Present Illness Initial comments: Patient is a 50-year-old male, well-known to this ER, presenting to the emergency department via EMS for complaints of not being with a urinate for the last 45 hours. He does have history of prostate enlargement, he does take Flomax. Fevers or chills, no abdominal pain other than some pressure, he denies any chest pain or shortness of breath. He denies any flank pain, he does see a urologist, he thinks it's Dr. Velasquez. He states it does burn a little bit when he does try to go. He has no further complaints. - Related Data Home Medications Medication Instructions Recorded Confirmed ARIPiprazole [Abilify] 10 mg PO HS 01/19/19 08/06/20 OLANZapine [ZyPREXA] 10 mg PO HS 01/19/19 08/06/20 metFORMIN HCL 1,000 mg PO QAM 04/30/19 08/06/20 glipiZIDE [Glucotrol] 10 mg PO AC-BID 01/19/20 08/06/20 Albuterol Sulfate [Proair Hfa] 2 puff INHALATION RT-Q6H PRN 02/21/20 08/06/20 Dicyclomine [Bentyl] 20 mg PO QID 04/12/20 08/06/20 Ergocalciferol [Vitamin D2 50,000 unit PO MO 04/12/20 08/06/20 (DRISDOL)] Fluticasone Propionate [Flovent 2 puff INHALATION RT-BID 04/12/20 08/06/20 Diskus] Loperamide [Imodium] 2 mg PO QID PRN 04/12/20 08/06/20 Omeprazole 40 mg PO DAILY 04/12/20 08/06/20 Tamsulosin [Flomax] 0.4 mg PO DAILY 04/12/20 08/06/20 Aspirin EC [Ecotrin Low Dose] 81 mg PO DAILY 07/09/20 08/06/20 sitaGLIPtin [Januvia] 25 mg PO DAILY 07/09/20 08/06/20 Calcium Carbonate [Tums] 500 mg PO TID PRN 08/06/20 08/06/20 Previous Rx's Medication Instructions Recorded Phenobarb/Hyoscy/Atropine/Scop 16.2 mg PO Q6H #12 tablet 07/09/20 [ Tab] Ipratropium-Albuterol Nebulize 3 ml INHALATION QID #1 box 08/06/20 [Duoneb 0.5 mg-3 mg/3 ml Soln] Ondansetron [Zofran ODT] 4 mg PO Q8HR PRN #15 tab 09/07/20 Allergies Allergy/AdvReac Type Severity Reaction Status Date / Time dicyclomine HCl [From Bentyl] Allergy Unknown Dyspnea Verified 09/21/20 19:33 latex Allergy Unknown Rash/Hives Verified 09/21/20 19:33 diphenhydramine HCl Allergy Anaphylaxis Verified 09/21/20 19:33 [From Benadryl] adhesive AdvReac Unknown Itching Verified 09/21/20 19:33 ciprofloxacin AdvReac Unknown Nausea Verified 09/21/20 19:33 Macrolide Antibiotics AdvReac Unknown Nausea Verified 09/21/20 19:33 sulfamethoxazole AdvReac Unknown Unknown Verified 09/21/20 19:33 [From Bactrim] trimethoprim [From Bactrim] AdvReac Unknown Unknown Verified 09/21/20 19:33 Review of Systems ROS Statement: Those systems with pertinent positive or pertinent negative responses have been documented in the HPI. ROS Other: All systems not noted in ROS Statement are negative. 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 History of Any Multi-Drug Resistant Organisms: None Reported Past Surgical History: Heart Catheterization, Orthopedic Surgery Additional Past Surgical History / Comment(s): Cysts removed, left thumb surg idalmis, colonoscopy 08/24/2019 Past Anesthesia/Blood Transfusion Reactions: Motion Sickness, Postoperative Nausea & Vomiting (PONV) Past Psychological History: Anxiety, Bipolar, Depression, Schizophrenia Smoking Status: Current every day smoker Past Alcohol Use History: None Reported Past Drug Use History: None Reported - Past Family History Brother(s) Family Medical History: Diabetes Mellitus Additional Family Medical History / Comment(s): Patient has 2 brothers. One from complications from diabetes. The second is alive with diabetes. Sister(s) Family Medical History: Cancer Additional Family Medical History / Comment(s): Patient has one sister with breast cancer. Patient does not have any children. Father Family Medical History: Cancer Additional Family Medical History / Comment(s): Father in his 40s or 50s from colon cancer. Mother Family Medical History: Cancer Additional Family Medical History / Comment(s): Mother at age 68 from lung cancer. General Exam - General Exam Comments Initial Comments: GENERAL: Patient is well-developed and well-nourished. Patient is nontoxic and in no acute distress. HEAD: Atraumatic, normocephalic. EYES: Pupils equal round and reactive to light, extraocular movements intact, sclera anicteric, conjunctiva are normal. Eyelids were unremarkable. ENT: Nares patent, oropharynx clear without exudates. Moist mucous membranes. NECK: Normal range of motion, supple without lymphadenopathy or JVD. LUNGS: Unlabored respirations. Breath sounds clear to auscultation bilaterally and equal. No wheezes rales or rhonchi. HEART: Regular rate and rhythm without murmurs, rubs or gallops. ABDOMEN: Soft, nontender, normoactive bowel sounds. No guarding, no rebound. No masses appreciated. : Deferred MUSCULOSKELETAL: Normal extremities with adequate strength and normal range of motion, no pitting or edema. No clubbing or cyanosis. NEUROLOGICAL: Patient is alert and oriented x 3. Motor and sensory are also intact. Symmetrical smile. Normal speech, normal gait. PSYCH: Normal mood, normal affect. SKIN: Warm, Dry, normal turgor, no rashes or lesions noted. Limitations: no limitations Course Vital Signs 09/21/20 19:31 Temperature 98.5 F Pulse Rate 67 Respiratory 16 Rate Blood Pressure 143/108 O2 Sat by Pulse 96 Oximetry Medical Decision Making - Medical Decision Making Patient is a 50-year-old male, well-known to this ER, presenting via EMS with complaints of not being of the urinate for the past 4 or 5 hours. We did bladder scan the patient, and initial reading was 800 mL, patient was able to urinate a total of 750ml here in the ER. Urinalysis is normal, no evidence for infection. Patient's exam is otherwise unremarkable. I discussed the patient that he can go home, he can follow up with his urologist on Wednesday if symptoms persist. He is in agreement with this plan of care and he is stable for dis charge. Return parameters were discussed with the patient and he verbalized understanding. Case discussed with Dr. Estrada. - Lab Data Lab Results 09/21/20 Range/Units 19:44 Urine Color Light Yellow Urine Appearance Clear (Clear) Urine pH 6.0 (5.0-8.0) Ur Specific [place] 1.006 (1.001-1.035) Urine Protein Negative (Negative) Urine Glucose (UA) Negative (Negative) Urine Ketones Negative (Negative) Urine Blood Negative (Negative) Urine Nitrite Negative (Negative) Urine Bilirubin Negative (Negative) Urine Urobilinogen <2.0 (<2.0) mg/dL Ur Leukocyte Esterase Negative (Negative) Disposition Clinical Impression: Urinary retention Disposition: HOME SELF-CARE Condition: Stable Instructions (If sedation given, give patient instructions): Urinary Retention in Men (ED) Additional Instructions: Please return to the Emergency Department if symptoms worsen or any other concerns. Recommend following up with urologist on Wednesday as discussed. Is patient prescribed a controlled substance at d/c from ED?: No Referrals: [facility] [Primary Care Provider] - 1-2 days Ethan Horan MD [STAFF PHYSICIAN] - 1-2 days
[2020-09-21 20:39] VITALS: BP 113/82
== END 2020-09-21 20:39 | disposition home or self-care (01) ==
LOC: EC 19:23
DX: R33.9 Retention of urine, unspecified (principal); E11.9 Type 2 diabetes mellitus without complications; E78.5 Hyperlipidemia, unspecified; F17.200 Nicotine dependence, unspecified, uncomplicated; F32.9 Major depressive disorder, single episode, unspecified; F41.9 Anxiety disorder, unspecified; I10 Essential (primary) hypertension; J44.9 Chronic obstructive pulmonary disease, unspecified; K21.9 Gastro-esophageal reflux disease without esophagitis; M19.90 Unspecified osteoarthritis, unspecified site; Z79.82 Long term (current) use of aspirin; Z79.84 Long term (current) use of oral hypoglycemic drugs; Z86.73 Personal history of transient ischemic attack (TIA), and cerebral infarction without residual deficits
CPT/HCPCS: 81003; 99283

== ENCOUNTER 2020-09-22 17:35 | Emergency (ER) | payer MEDICARE, OTHER ==
[2020-09-22 18:32] VITALS: BP 131/75; PULSE 79; RESP 18; TEMP 98.2
[2020-09-22 19:18] LABS: Appearance,Urine Clear (Clear); Bilirubin,Urine Negative (Negative); Blood,Urine Negative (Negative); Color,Urine Yellow; Glucose,Urine (UA) Negative (Negative); Ketones,Urine 1+ (Negative); Leukocyte Esterase,Urine Negative (Negative); Nitrite,Urine Negative (Negative); PH, Urine 6.5 (5.0-8.0); Protein,Urine Negative (Negative); Specific Gravity,Urine 1.013 (1.001-1.035); Urobilinogen,Urine <2.0 mg/dL (<2.0)
--- NOTE | 2020-09-22 19:45 | ED ---
General Adult HPI - General Chief complaint: Abdominal Pain Stated complaint: URINARY ISSUES Time Seen by Provider: 09/22/20 19:02 Source: patient Mode of arrival: ambulatory Limitations: no limitations - History of Present Illness Initial comments: Patient is a 50-year-old male presenting to the emergency Department with complaints of generalized abdominal pain since yesterday. Patient has been seen here multiple times in the past few days for complaints of urinary issues, he states that he lives in a [facility] right now and is complaining that they are not giving his meds and or not feeding him. Patient denies any nausea or vomiting, no fevers or chills, no dysuria. Patient has no chest pain or shortness of breath. He does use an inhaler for occasional mild asthma. Patient cannot describe his abdominal pain, he states it feels more like "pressure and hunger." He denies any suicidal or homicidal thoughts. He has no further complaints at this time. Upon arrival to the ER his vitals are stable. - Related Data Home Medications Medication Instructions Recorded Confirmed ARIPiprazole [Abilify] 10 mg PO HS 01/19/19 08/06/20 OLANZapine [ZyPREXA] 10 mg PO HS 01/19/19 08/06/20 metFORMIN HCL 1,000 mg PO QAM 04/30/19 08/06/20 glipiZIDE [Glucotrol] 10 mg PO AC-BID 01/19/20 08/06/20 Albuterol Sulfate [Proair Hfa] 2 puff INHALATION RT-Q6H PRN 02/21/20 08/06/20 Dicyclomine [Bentyl] 20 mg PO QID 04/12/20 08/06/20 Ergocalciferol [Vitamin D2 50,000 unit PO MO 04/12/20 08/06/20 (DRISDOL)] Fluticasone Propionate [Flovent 2 puff INHALATION RT-BID 04/12/20 08/06/20 Diskus] Loperamide [Imodium] 2 mg PO QID PRN 04/12/20 08/06/20 Omeprazole 40 mg PO DAILY 04/12/20 08/06/20 Tamsulosin [Flomax] 0.4 mg PO DAILY 04/12/20 08/06/20 Aspirin EC [Ecotrin Low Dose] 81 mg PO DAILY 07/09/20 08/06/20 sitaGLIPtin [Januvia] 25 mg PO DAILY 07/09/20 08/06/20 Calcium Carbonate [Tums] 500 mg PO TID PRN 08/06/20 08/06/20 Previous Rx's Medication Instructions Recorded Phenobarb/Hyoscy/Atropine/Scop 16.2 mg PO Q6H #12 tablet 07/09/20 [ Tab] Ipratropium-Albuterol Nebulize 3 ml INHALATION QID #1 box 08/06/20 [Duoneb 0.5 mg-3 mg/3 ml Soln] Ondansetron [Zofran ODT] 4 mg PO Q8HR PRN #15 tab 09/07/20 Allergies Allergy/AdvReac Type Severity Reaction Status Date / Time dicyclomine HCl [From Bentyl] Allergy Unknown Dyspnea Verified 09/22/20 18:32 latex Allergy Unknown Rash/Hives Verified 09/22/20 18:32 diphenhydramine HCl Allergy Anaphylaxis Verified 09/22/20 18:32 [From Benadryl] adhesive AdvReac Unknown Itching Verified 09/22/20 18:32 ciprofloxacin AdvReac Unknown Nausea Verified 09/22/20 18:32 Macrolide Antibiotics AdvReac Unknown Nausea Verified 09/22/20 18:32 sulfamethoxazole AdvReac Unknown Unknown Verified 09/22/20 18:32 [From Bactrim] trimethoprim [From Bactrim] AdvReac Unknown Unknown Verified 09/22/20 18:32 Review of Systems ROS Statement: Those systems with pertinent positive or pertinent negative responses have been documented in the HPI. ROS Other: All systems not noted in ROS Statement are negative. 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 History of Any Multi-Drug Resistant Organisms: None Reported Past Surgical History: Heart Catheterization, Orthopedic Surgery Additional Past Surgical History / Comment(s): Cysts removed, left thumb surgery, colonoscopy 08/24/2019 Past Anesthesia/Blood Transfusion Reactions: Motion Sickness, Postoperative Nausea & Vomiting (PONV) Past Psychological History: Anxiety, Bipolar, Depression, Schizophrenia Smoking Status: Current every day smoker Past Alcohol Use History: None Reported Past Drug Use History: None Reported - Past Family History Brother(s) Family Medical History: Diabetes Mellitus Additional Family Medical History / Comment(s): Patient has 2 brothers. One from complications from diabetes. The second is alive with diabetes. Sister(s) Family Medical History: Cancer Additional Family Medical History / Comment(s): Patient has one sister with breast cancer. Patient does not have any children. Father Family Medical History: Cancer Additional Family Medical History / Comment(s): Father in his 40s or 50s from colon cancer. Mother Family Medical History: Cancer Additional Family Medical History / Comment(s): Mother at age 68 from lung cancer. General Exam - General Exam Comments Initial Comments: GENERAL: Patient is well-developed and well-nourished. Patient is nontoxic and in no acute distress. HEAD: Atraumatic, normocephalic. EYES: Pupils equal round and reactive to light, extraocular movements intact, sclera anicteric, conjunctiva are normal. Eyelids were unremarkable. ENT: TMs normal, nares patent, oropharynx clear without exudates. Moist mucous membranes. NECK: Normal range of motion, supple without lymphadenopathy or JVD. LUNGS: Unlabored respirations. Breath sounds clear to auscultation bilaterally and equal. No wheezes rales or rhonchi. HEART: Regular rate and rhythm without murmurs, rubs or gallops. ABDOMEN: Soft, nontender, normoactive bowel sounds. No guarding, no rebound. No masses appreciated. : Deferred MUSCULOSKELETAL: Normal extremities with adequate strength and normal range of motion, no pitting or edema. No clubbing or cyanosis. NEUROLOGICAL: Patient is alert and oriented x 3. Motor and sensory are also intact. Cranial nerves II through XII grossly intact. Symmetrical smile. Normal speech, normal gait. PSYCH: Normal mood, normal affect. SKIN: Warm, Dry, normal turgor, no rashes or lesions noted. Limitations: no limitations Course Vital Signs 09/22/20 18:29 Temperature 98.2 F Pulse Rate 79 Respiratory 18 Rate Blood Pressure 131/75 O2 Sat by Pulse 99 Oximetry Medical Decision Making - Medical Decision Making Patient is a 50-year-old male here with generalized complaints of abdominal pain and trouble urinating. Patient was seen here multiple times over the last few days for same complaints. He also states that he does not like the [facility] that he is living in. His vitals are stable upon arrival, his exam is unremarkable, no abdominal pain on palpation. Patient stating that he has not eaten all day. UA reveals no evidence of infection, is urinating without difficulty. Patient is to see his urologist tomorrow. I will give him sheet for shelters. Patient is stable for discharge. Patient is in agreement with this plan of care. Return parameters were discussed with the patient and they verbalized understanding. Case discussed with Dr. Vizcarra. - Lab Data Lab Results 09/22/20 Range/Units 18:51 Urine Color Yellow Urine Appearance Clear (Clear) Urine pH 6.5 (5.0-8.0) Ur Specific [place] 1.013 (1.001-1.035) Urine Protein Negative (Negative) Urine Glucose (UA) Negative (Negative) Urine Ketones 1+ H (Negative) Urine Blood Negative (Negative) Urine Nitrite Negative (Negative) Urine Bilirubin Negative (Negative) Urine Urobilinogen <2.0 (<2.0) mg/dL Ur Leukocyte Esterase Negative (Negative) Disposition Clinical Impression: Dysuria Disposition: HOME SELF-CARE Condition: Stable Instructions (If sedation given, give patient instructions): Normal Exam (ED) Additional Instructions: Please return to the Emergency Department if symptoms worsen or any other concerns. Follow-up with your urologist tomorrow. Is patient prescribed a controlled substance at d/c from ED?: No Referrals: None,Stated [Primary Care Provider] - 1-2 days Ethan Horan MD [STAFF PHYSICIAN] - 1-2 days
== END 2020-09-22 19:47 | disposition home or self-care (01) ==
LOC: EC 17:35
DX: R30.0 Dysuria (principal); R10.84 Generalized abdominal pain; F41.9 Anxiety disorder, unspecified; F32.9 Major depressive disorder, single episode, unspecified; F20.9 Schizophrenia, unspecified; F17.200 Nicotine dependence, unspecified, uncomplicated; J44.9 Chronic obstructive pulmonary disease, unspecified; K21.9 Gastro-esophageal reflux disease without esophagitis; E78.5 Hyperlipidemia, unspecified; I10 Essential (primary) hypertension; Z86.73 Personal history of transient ischemic attack (TIA), and cerebral infarction without residual deficits; H91.90 Unspecified hearing loss, unspecified ear; M19.90 Unspecified osteoarthritis, unspecified site; G40.909 Epilepsy, unspecified, not intractable, without status epilepticus; G47.30 Sleep apnea, unspecified; Z79.51 Long term (current) use of inhaled steroids; Z79.899 Other long term (current) drug therapy; Z79.82 Long term (current) use of aspirin; Z79.84 Long term (current) use of oral hypoglycemic drugs
CPT/HCPCS: 81003; 99284

== ENCOUNTER 2020-10-09 14:52 | Emergency (ER) | payer MEDICARE, OTHER ==
[2020-10-09 15:40] VITALS: BP 132/80; PULSE 82; RESP 16; TEMP 97.9
--- NOTE | 2020-10-09 15:42 | ED ---
General Adult HPI - General Source: patient, RN notes reviewed Mode of arrival: ambulatory Limitations: no limitations <Attila Thibodeaux - Last Filed: 10/09/20 15:38> <Andrea Felix - Last Filed: 10/09/20 17:39> - General Stated complaint: [place] pain,Chest PAin Time Seen by Provider: 10/09/20 15:30 - History of Present Illness Initial comments: 50-year-old male presents emergency Department chief complaint of abdominal pain, urinary frequency and chest discomfort. Symptoms started yesterday. This is been ongoing issues. Patient denies checking his blood sugar today. No fevers or chills no cough or cold like symptoms. (Attila Thibodeaux) This is a 50-year-old male who presents emergency Department complaining of epigastric abdominal pain. The patient states his real reason for coming is he has sharp chest pain that comes and goes with movement. Patient denies any shortness of breath patient denies any fever chills or cough. Patient denies any headache patient denies numbness weakness patient denies any lightheadedness or dizziness. Patient states he has some urinary frequency but he states this is ongoing. Patient states his chest pain is his typical chest pain as well. It is unclear as to exactly why he came in because he is having the same symptoms he admits to always having. (Andrea Felix) - Related Data Home Medications Medication Instructions Recorded Confirmed ARIPiprazole [Abilify] 10 mg PO HS 01/19/19 08/06/20 OLANZapine [ZyPREXA] 10 mg PO HS 01/19/19 08/06/20 metFORMIN HCL 1,000 mg PO QAM 04/30/19 08/06/20 glipiZIDE [Glucotrol] 10 mg PO AC-BID 01/19/20 08/06/20 Albuterol Sulfate [Proair Hfa] 2 puff INHALATION RT-Q6H PRN 02/21/20 08/06/20 Dicyclomine [Bentyl] 20 mg PO QID 04/12/20 08/06/20 Ergocalciferol [Vitamin D2 50,000 unit PO MO 04/12/20 08/06/20 (DRISDOL)] Fluticasone Propionate [Flovent 2 puff INHALATION RT-BID 04/12/20 08/06/20 Diskus] Loperamide [Imodium] 2 mg PO QID PRN 04/12/20 08/06/20 Omeprazole 40 mg PO DAILY 04/12/20 08/06/20 Tamsulosin [Flomax] 0.4 mg PO DAILY 04/12/20 08/06/20 Aspirin EC [Ecotrin Low Dose] 81 mg PO DAILY 07/09/20 08/06/20 sitaGLIPtin [Januvia] 25 mg PO DAILY 07/09/20 08/06/20 Calcium Carbonate [Tums] 500 mg PO TID PRN 08/06/20 08/06/20 Previous Rx's Medication Instructions Recorded Phenobarb/Hyoscy/Atropine/Scop 16.2 mg PO Q6H #12 tablet 07/09/20 [ Tab] Ipratropium-Albuterol Nebulize 3 ml INHALATION QID #1 box 08/06/20 [Duoneb 0.5 mg-3 mg/3 ml Soln] Ondansetron [Zofran ODT] 4 mg PO Q8HR PRN #15 tab 09/07/20 Allergies Allergy/AdvReac Type Severity Reaction Status Date / Time dicyclomine HCl [From Bentyl] Allergy Unknown Dyspnea Verified 10/09/20 15:37 latex Allergy Unknown Rash/Hives Verified 10/09/20 15:37 diphenhydramine HCl Allergy Anaphylaxis Verified 10/09/20 15:37 [From Benadryl] adhesive AdvReac Unknown Itching Verified 10/09/20 15:37 ciprofloxacin AdvReac Unknown Nausea Verified 10/09/20 15:37 Macrolide Antibiotics AdvReac Unknown Nausea Verified 10/09/20 15:37 sulfamethoxazole AdvReac Unknown Unknown Verified 10/09/20 15:37 [From Bactrim] trimethoprim [From Bactrim] AdvReac Unknown Unknown Verified 10/09/20 15:37 Review of Systems ROS Other: All systems not noted in ROS Statement are negative. <Attila Thibodeaux - Last Filed: 10/09/20 15:38> ROS Other: All systems not noted in ROS Statement are negative. <Andrea Felix - Last Filed: 10/09/20 17:39> ROS Statement: Those systems with pertinent positive or pertinent negative responses have been documented in the HPI. 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 History of Any Multi-Drug Resistant Organisms: None Reported Past Surgical History: Heart Catheterization, Orthopedic Surgery Additional Past Surgical History / Comment(s): Cysts removed, left thumb surgery, colonoscopy 08/24/2019 Past Anesthesia/Blood Transfusion Reactions: Motion Sickness, Postoperative Nausea & Vomiting (PONV) Past Psychological History: Anxiety, Bipolar, Depression, Schizophrenia Smoking Status: Current every day smoker Past Alcohol Use History: None Reported Past Drug Use History: None Reported - Past Family History Brother(s) Family Medical History: Diabetes Mellitus Additional Family Medical History / Comment(s): Patient has 2 brothers. One from complications from diabetes. The second is alive with diabetes. Sister(s) Family Medical History: Cancer Additional Family Medical History / Comment(s): Patient has one sister with breast cancer. Patient does not have any children. Father Family Medical History: Cancer Additional Family Medical History / Comment(s): Father in his 40s or 50s from colon cancer. Mother Family Medical History: Cancer Additional Family Medical History / Comment(s): Mother at age 68 from lung cancer. <Attila Thibodeaux - Last Filed: 10/09/20 15:38> General Exam <Andrea Felix - Last Filed: 10/09/20 17:39> - General Exam Comments Initial Comments: GENERAL: Patient is well-developed and well-nourished. Patient is nontoxic and well- hydrated and is in no acute distress. ENT: Neck is soft and supple. No significant lymphadenopathy is noted. Oropharynx is clear. Moist mucous membranes. Neck has full range of motion without eliciting any pain. EYES: The sclera were anicteric and conjunctiva were pink and moist. Extraocular movements were intact and pupils were equal round and reactive to light. E yelids were unremarkable. PULMONARY: Unlabored respirations. Good breath sounds bilaterally. No audible rales rhonchi or wheezing was noted. CARDIOVASCULAR: There is a regular rate and rhythm without any murmurs gallops or rubs. ABDOMEN: Abdomen is nontender SKIN: Skin is clear with no lesions or rashes and otherwise unremarkable. NEUROLOGIC: Patient is alert and oriented x3. Cranial nerves II through XII are grossly intact. Motor and sensory are also intact. Normal speech, volume and content. Symmetrical smile. MUSCULOSKELETAL: Normal extremities with adequate strength and full range of motion. No lower extremity swelling or edema. No calf tenderness. LYMPHATICS: No significant lymphadenopathy is noted PSYCHIATRIC: Normal psychiatric evaluation. (Andrea Felix) Course Vital Signs 10/09/20 15:38 Temperature 97.9 F Pulse Rate 82 Respiratory 16 Rate Blood Pressure 132/80 O2 Sat by Pulse 97 Oximetry Medical Decision Making - Lab Data Result diagrams: 10/09/20 16:07 10/09/20 16:07 <Andrea Felix - Last Filed: 10/09/20 17:39> - Medical Decision Making EKG shows normal sinus rhythm at 67 bpm NM interval is 138 QRS is 92 QT interval 44 QTC is 426. EKG shows no ST segment elevation or depression. Chest x-ray showed no acute abnormality. (Andrea Felix) - Lab Data Lab Results 10/09/20 10/09/20 10/09/20 Range/Units 16:07 16:07 16:07 WBC 8.2 (3.8-10.6) k/uL RBC 5.51 (4.30-5.90) m/uL Hgb 15.8 (13.0-17.5) gm/dL Hct 45.4 (39.0-53.0) % MCV 82.5 (80.0-100.0) fL MCH 28.7 (25.0-35.0) pg MCHC 34.8 (31.0-37.0) g/dL RDW 13.2 (11.5-15.5) % Plt Count 196 (150-450) k/uL MPV 6.9 Neutrophils % 77 % Lymphocytes % 15 % Monocytes % 5 % Eosinophils % 2 % Basophils % 0 % Neutrophils # 6.4 (1.3-7.7) k/uL Lymphocytes # 1.2 (1.0-4.8) k/uL Monocytes # 0.4 (0-1.0) k/uL Eosinophils # 0.2 (0-0.7) k/uL Basophils # 0.0 (0-0.2) k/uL Sodium 139 (137-145) mmol/L Potassium 3.8 (3.5-5.1) mmol/L Chloride 110 H (98-107) mmol/L Carbon Dioxide 19 L (22-30) mmol/L Anion Gap 10 mmol/L BUN 6 L (9-20) mg/dL Creatinine 0.68 (0.66-1.25) mg/dL Est GFR (CKD-EPI)AfAm >90 (>60 ml/min/1.73 sqM) Est GFR (CKD-EPI)NonAf >90 (>60 ml/min/1.73 sqM) Glucose 85 (74-99) mg/dL Calcium 10.1 (8.4-10.2) mg/dL Total Bilirubin 0.4 (0.2-1.3) mg/dL AST 48 (17-59) U/L ALT 88 H (4-49) U/L Alkaline Phosphatase 87 (38-126) U/L Troponin I (0.000-0.034) ng/mL Total Protein 6.8 (6.3-8.2) g/dL Albumin 4.4 (3.5-5.0) g/dL Lipase 156 (23-300) U/L Urine Color Colorless Urine Appearance Clear (Clear) Urine pH 5.5 (5.0-8.0) Ur Specific Gile 1.003 (1.001-1.035) Urine Protein Negative (Negative) Urine Glucose (UA) Negative (Negative) Urine Ketones Negative (Negative) Urine Blood Negative (Negative) Urine Nitrite Negative (Negative) Urine Bilirubin Negative (Negative) Urine Urobilinogen <2.0 (<2.0) mg/dL Ur Leukocyte Esterase Negative (Negative) 10/09/20 Range/Units 16:07 WBC (3.8-10.6) k/uL RBC (4.30-5.90) m/uL Hgb (13.0-17.5) gm/dL Hct (39.0-53.0) % MCV (80.0-100.0) fL MCH (25.0-35.0) pg MCHC (31.0-37.0) g/dL RDW (11.5-15.5) % Plt Count (150-450) k/uL MPV Neutrophils % % Lymphocytes % % Monocytes % % Eosinophils % % Basophils % % Neutrophils # (1.3-7.7) k/uL Lymphocytes # (1.0-4.8) k/uL Monocytes # (0-1.0) k/uL Eosinophils # (0-0.7) k/uL Basophils # (0-0.2) k/uL Sodium (137-145) mmol/L Potassium (3.5-5.1) mmol/L Chloride (98-107) mmol/L Carbon Dioxide (22-30) mmol/L Anion Gap mmol/L BUN (9-20) mg/dL Creatinine (0.66-1.25) mg/dL Est GFR (CKD-EPI)AfAm (>60 ml/min/1.73 sqM) Est GFR (CKD-EPI)NonAf (>60 ml/min/1.73 sqM) Glucose (74-99) mg/dL Calcium (8.4-10.2) mg/dL Total Bilirubin (0.2-1.3) mg/dL AST (17-59) U/L ALT (4-49) U/L Alkaline Phosphatase (38-126) U/L Troponin I <0.012 (0.000-0.034) ng/mL Total Protein (6.3-8.2) g/dL Albumin (3.5-5.0) g/dL Lipase (23-300) U/L Urine Color Urine Appearance (Clear) Urine pH (5.0-8.0) Ur Specific Gile (1.001-1.035) Urine Protein (Negative) Urine Glucose (UA) (Negative) Urine Ketones (Negative) Urine Blood (Negative) Urine Nitrite (Negative) Urine Bilirubin (Negative) Urine Urobilinogen (<2.0) mg/dL Ur Leukocyte Esterase (Negative) Disposition <Attila Thibodeaux - Last Filed: 10/09/20 15:38> Is patient prescribed a controlled substance at d/c from ED?: No Time of Disposition: 17:39 <Andrea Felix - Last Filed: 10/09/20 17:39> Clinical Impression: Chronic chest pain Disposition: HOME SELF-CARE Condition: Good Instructions (If sedation given, give patient instructions): Chest Pain (ED) Referrals: [facility] [Primary Care Provider] - 1-2 days
[2020-10-09 16:35] LABS: Basophils % (A) 0 %; Eosinophils # (A) 0.2 k/uL (0-0.7); Eosinophils % (A) 2 %; HCT 45.4 % (39.0-53.0); HGB 15.8 gm/dL (13.0-17.5); Lymphocytes # (A) 1.2 k/uL (1.0-4.8); Lymphocytes % (A) 15 %; MCH 28.7 pg (25.0-35.0); MCHC 34.8 g/dL (31.0-37.0); MCV 82.5 fL (80.0-100.0); Mean Platelet Volume 6.9; Monocytes # (A) 0.4 k/uL (0-1.0); Monocytes % (A) 5 %; Neutrophils # (A) 6.4 k/uL (1.3-7.7); Neutrophils % (A) 77 %; Platelet Count 196 k/uL (150-450); RBC 5.51 m/uL (4.30-5.90); RDW 13.2 % (11.5-15.5); WBC 8.2 k/uL (3.8-10.6)
[2020-10-09 16:41] LABS: Appearance,Urine Clear (Clear); Bilirubin,Urine Negative (Negative); Blood,Urine Negative (Negative); Color,Urine Colorless; Glucose,Urine (UA) Negative (Negative); Ketones,Urine Negative (Negative); Leukocyte Esterase,Urine Negative (Negative); Nitrite,Urine Negative (Negative); PH, Urine 5.5 (5.0-8.0); Protein,Urine Negative (Negative); Urobilinogen,Urine <2.0 mg/dL (<2.0)
[2020-10-09 16:48] LABS: Specific Gravity,Urine 1.003 (1.001-1.035)
[2020-10-09 16:50] LABS: ALT 88 U/L (4-49); AST 48 U/L (17-59); African American GFR (CKD) >90 (>60 ml/min/1.73 sqM); Albumin 4.4 g/dL (3.5-5.0); Alkaline Phosphatase 87 U/L (38-126); Anion Gap 10 mmol/L; Blood Urea Nitrogen 6 mg/dL (9-20); Calcium 10.1 mg/dL (8.4-10.2); Carbon Dioxide 19 mmol/L (22-30); Chloride 110 mmol/L (98-107); Glucose 85 mg/dL (74-99); Lipase 156 U/L (23-300); Non-African American GFR(CKD) >90 (>60 ml/min/1.73 sqM); Potassium 3.8 mmol/L (3.5-5.1); Sodium 139 mmol/L (137-145); Total Bilirubin 0.4 mg/dL (0.2-1.3); Total Protein 6.8 g/dL (6.3-8.2)
--- NOTE | 2020-10-09 17:45 | XR ---
EXAMINATION TYPE: XR chest 1V portable DATE OF EXAM: 10/09/2020 COMPARISON: 09/21/2020 HISTORY: Cough TECHNIQUE: Single view FINDINGS: Heart and mediastinum are normal. Lungs are clear. Diaphragm is normal. Bony thorax is inta ct. IMPRESSION: Normal chest. No change.
== END 2020-10-09 17:55 | disposition home or self-care (01) ==
LOC: EC 14:52
DX: R07.89 Other chest pain (principal); E11.9 Type 2 diabetes mellitus without complications; K21.9 Gastro-esophageal reflux disease without esophagitis; J44.9 Chronic obstructive pulmonary disease, unspecified; E78.5 Hyperlipidemia, unspecified; I10 Essential (primary) hypertension; G47.33 Obstructive sleep apnea (adult) (pediatric); M19.90 Unspecified osteoarthritis, unspecified site; F41.9 Anxiety disorder, unspecified; F32.9 Major depressive disorder, single episode, unspecified; F17.200 Nicotine dependence, unspecified, uncomplicated; Z86.73 Personal history of transient ischemic attack (TIA), and cerebral infarction without residual deficits
CPT/HCPCS: 36415; 71045; 80053; 81003; 83690; 84484; 85025; 87635; 93005; 96374

== ENCOUNTER → 2021-04-07 | Outpatient (CLI) | payer MEDICARE, OTHER ==
[2021-04-07 12:38] LABS: Basophils % (A) 0 %; Eosinophils # (A) 0.2 k/uL (0-0.7); Eosinophils % (A) 3 %; HCT 43.5 % (39.0-53.0); Hyperchromasia Moderate; Lymphocytes # (A) 1.6 k/uL (1.0-4.8); Lymphocytes % (A) 20 %; MCH 30.8 pg (25.0-35.0); MCHC 36.7 g/dL (31.0-37.0); Mean Platelet Volume 7.4; Monocytes # (A) 0.4 k/uL (0-1.0); Monocytes % (A) 5 %; Neutrophils # (A) 5.4 k/uL (1.3-7.7); Neutrophils % (A) 69 %; Platelet Count 194 k/uL (150-450); Poikilocytosis Slight; RBC 5.18 m/uL (4.30-5.90); RDW 14.1 % (11.5-15.5); WBC 7.8 k/uL (3.8-10.6)
[2021-04-07 12:40] LABS: Appearance,Urine Clear (Clear); Bilirubin,Urine Negative (Negative); Blood,Urine Negative (Negative); Color,Urine Light Yellow; Glucose,Urine (UA) Trace (Negative); Ketones,Urine Negative (Negative); Leukocyte Esterase,Urine Negative (Negative); Nitrite,Urine Negative (Negative); Protein,Urine Negative (Negative); Specific Gravity,Urine 1.008 (1.001-1.035); Urobilinogen,Urine <2.0 mg/dL (<2.0)
[2021-04-07 13:03] LABS: African American GFR (CKD) >90 (>60 ml/min/1.73 sqM); Anion Gap 8 mmol/L; Blood Urea Nitrogen 15 mg/dL (9-20); Calcium 9.6 mg/dL (8.4-10.2); Carbon Dioxide 23 mmol/L (22-30); Chloride 109 mmol/L (98-107); Glucose 177 mg/dL (74-99); Non-African American GFR(CKD) >90 (>60 ml/min/1.73 sqM); Potassium 4.2 mmol/L (3.5-5.1); Sodium 140 mmol/L (137-145)
== END | disposition home or self-care (01) ==
LOC: LABPAT 10:49
PROVIDERS: ATTEND Urology
DX: Z01.812 Encounter for preprocedural laboratory examination (principal); N40.1 Benign prostatic hyperplasia with lower urinary tract symptoms; E11.9 Type 2 diabetes mellitus without complications; Z79.899 Other long term (current) drug therapy; R35.0 Frequency of micturition
CPT/HCPCS: 80048; 81003; 85025; 87086

== ENCOUNTER 2021-04-14 07:22 | Day surgery (SDC) | payer MEDICARE, OTHER ==
[2021-04-10 11:33] VITALS: BMI 30.9
--- NOTE | 2021-04-13 16:17 | P.GSHP ---
History of Present Illness H&P Date: 04/13/21 This is a 51 yo male with hx of BPH, he is symptomatic despite medical therapy. Option of TURP and Urolift were discussed. Discussed the risk of bleeding, infection, urinary incontinence. Discussed the potential of persistent symptoms. He understood all the risk and agreed to proceed with urolift. Past Medical History Past Medical History: Asthma, Chest Pain / Angina, COPD, CVA/TIA, Diabetes Mellitus, GERD/Reflux, Hearing Disorder / Deafness, Hyperlipidemia, Hypertension, Liver Disease, Osteoarthritis (OA), Pneumonia, Seizure Disorder, Sleep Apnea/CPAP/BIPAP Additional Past Medical History / Comment(s): states CVA at 35 yrs old, no weakness @ this time. states seizure at 35 yrs old., DDD- back & neck pain., carpal tunnel syndrome., hx. of cyst on kidney, uses cpap., states having abdominal pain with diarrhea and nausea ., Lives in a usp with 2 other people. Has a caregiver.n Has [employer] public guardian. History of Any Multi-Drug Resistant Organisms: None Reported Past Surgical History: Heart Catheterization, Orthopedic Surgery Additional Past Surgical History / Comment(s): Cysts removed, left thumb surgery, colonoscopy 08/24/2019. Skin tags removed from both eyes. Past Anesthesia/Blood Transfusion Reactions: Motion Sickness, Postoperative Nausea & Vomiting (PONV) Smoking Status: Former smoker - Past Family History Brother(s) Family Medical History: Diabetes Mellitus Additional Family Medical History / Comment(s): Patient has 2 brothers. One from complications from diabetes. The second is alive with diabetes. Sister(s) Family Medical History: Cancer Additional Family Medical History / Comment(s): Patient has one sister with breast cancer. Patient does not have any children. Father Family Medical History: Cancer Additional Family Medical History / Comment(s): Father in his 40s or 50s from colon cancer. Mother Family Medical History: Cancer Additional Family Medical History / Comment(s): Mother at age 68 from lung cancer. Medications and Allergies Home Medications Medication Instructions Recorded Confirmed Type ARIPiprazole [Abilify] 10 mg PO HS 01/19/19 04/10/21 History OLANZapine [ZyPREXA] 10 mg PO HS 01/19/19 04/10/21 History glipiZIDE [Glucotrol] 10 mg PO AC-BID 01/19/20 04/10/21 History Albuterol Sulfate [Proair Hfa] 2 puff INHALATION RT-Q6H PRN 02/21/20 04/10/21 History Dicyclomine [Bentyl] 20 mg PO QID 04/12/20 04/10/21 History Ergocalciferol [Vitamin D2 50,000 unit PO MO 04/12/20 04/10/21 History (DRISDOL)] Fluticasone Propionate [Flovent 2 puff INHALATION RT-BID 04/12/20 04/10/21 History Diskus] Loperamide [Imodium] 2 mg PO QID PRN 04/12/20 04/10/21 History Omeprazole 40 mg PO DAILY 04/12/20 04/10/21 History Tamsulosin [Flomax] 0.4 mg PO DAILY 04/12/20 04/10/21 History Aspirin EC [Ecotrin Low Dose] 81 mg PO DAILY 07/09/20 04/10/21 History Phenobarb/Hyoscy/Atropine/Scop 16.2 mg PO Q6H #12 tablet 07/09/20 04/10/21 Rx [ Tab] sitaGLIPtin [Januvia] 25 mg PO DAILY 07/09/20 04/10/21 History Calcium Carbonate [Tums] 500 mg PO TID PRN 08/06/20 04/10/21 History Ipratropium-Albuterol Nebulize 3 ml INHALATION QID #1 box 08/06/20 04/10/21 Rx [Duoneb 0.5 mg-3 mg/3 ml Soln] Ondansetron [Zofran ODT] 4 mg PO Q8HR PRN #15 tab 09/07/20 04/10/21 Rx amLODIPine [Norvasc] 10 mg PO DAILY 04/10/21 04/10/21 History cloNIDine HCL [Catapres] 0.1 mg PO BID 04/10/21 04/10/21 History Allergies Allergy/AdvReac Type Severity Reaction Status Date / Time dicyclomine HCl [From Bentyl] Allergy Unknown Dyspnea Verified 04/10/21 11:03 latex Allergy Unknown Rash/Hives Verified 04/10/21 11:03 adhesive AdvReac Unknown Itching Verified 04/10/21 11:03 ciprofloxacin AdvReac Unknown Nausea Verified 04/10/21 11:03 Macrolide Antibiotics AdvReac Unknown Nausea Verified 04/10/21 11:03 sulfamethoxazole AdvReac Unknown Unknown Verified 04/10/21 11:03 [From Bactrim] trimethoprim [From Bactrim] AdvReac Unknown Unknown Verified 04/10/21 11:03 Surgical - Exam - General well developed, well nourished, no distress - Respiratory normal expansion, normal respiratory effort - Abdomen Abdomen: soft, non tender - Psychiatric oriented to time, oriented to person, oriented to place Assessment and Plan Assessment: 51 yo male with hx of BPH -OR for Urolift
[~2021-04-14 07:22] MED LIST changes: +DEXAMETHASONE SOD PHOSPHATE 4 MG/ML 1 ML VIAL IV ONE; +HYDROmorphone 0.5 MG/0.5 ML SYRINGE IVP PRN; -LACTATED RINGERS 1,000 ML IV ONE; +LIDOCAINE 1% (10MG/ML) FOR IV START INTRADERMA PRN; -LIDOCAINE 1% 20 ML VIAL (10MG/ML) FOR IV START INTRADERMA PRN; -LIDOCAINE 1% INJ 10MG/ML (20 ML MDV) ONE; +MIDAZOLAM 2 MG/2 ML VIAL IV PRN; +ONDANSETRON 4 MG/2 ML VIAL IVP ONE; -PROPOFOL 10 MG/ML 20 ML VIAL IV ONE
[2021-04-14 07:58] LABS: Glucose,Whole Blood 162 mg/dL (75-99)
[2021-04-14] MEDS ORDERED: LACTATED RINGERS 1,000 ML IV ONE (08:01)
[2021-04-14] MEDS ORDERED: SCOPOLAMINE 1.5MG/72HR PATCH TRANSDERM ONE (08:05)
[2021-04-14] MEDS ORDERED: PROPOFOL 10 MG/ML 20 ML VIAL IV ONE (09:00)
[2021-04-14] MEDS ORDERED: LIDOCAINE 1% INJ 10MG/ML (20 ML MDV) ONE (09:00)
[2021-04-14] MEDS ORDERED: fentaNYL (PF) 50 MCG/ML 2 ML AMP ONE (09:00)
[2021-04-14] MEDS ORDERED: MIDAZOLAM 2 MG/2 ML VIAL ONE (09:00)
[2021-04-14] MEDS ORDERED: SUCCINYLCHOLINE CHLORIDE 100 MG/5 ML SYR IV ONE (09:00)
[2021-04-14] MEDS ORDERED: LIDOCAINE 2% GEL 30 ML TUBE TOPICAL ONE (09:20)
[2021-04-14 09:59] VITALS: RESP 16; TEMP 97.7
[2021-04-14 10:11] LABS: Glucose,Whole Blood 170 mg/dL (75-99)
[2021-04-14] MEDS ORDERED: ONDANSETRON 4 MG/2 ML VIAL ONE (10:12)
[2021-04-14 11:12] VITALS: BP 131/83; PULSE 72
--- NOTE | 2021-04-14 12:21 | P.OP ---
Date of Procedure: 04/14/21 Preoperative Diagnosis: BPH Postoperative Diagnosis: Same Procedure(s) Performed: Urolift implant 8 Implants: Urolift implants Anesthesia: FILIBERTOA Surgeon: Marky Plaza Estimated Blood Loss (ml): 10 Pathology: none sent Condition: stable Disposition: PACU Indications for Procedure: This is a 51 yo male with hx of BPH, he is symptomatic despite medical therapy. Option of TURP and Urolift were discussed. Discussed the risk of bleeding, infection, urinary incontinence. Discussed the potential of persistent symptoms. He understood all the risk and agreed to proceed with urolift. Operative Findings: Bilateral obstructive lateral lobes, Description of Procedure: Patient was brought to the operating room, general anesthesia was induced. He was prepped and draped in sterile fashion a placement dorsal lithotomy position. Cystoscopy fitted with a 21-Spanish sheath was inserted per urethra, cystoscopy was performed showed no abnormality within the bladder. Attention was then carried to implant placement. A total of eight implants were placed, 4 on the left side and 4 on the right side. Implants with placed distal to the bladder neck, but proximal to the veru. There was no evidence of implant perforation into the bladder. At the end of the procedure there was an open anterior channel. There was some prostatic bleeding, A 16-Spanish Hernandez was placed, bladder was irrigated to clear. Patient tolerated procedure well was taken to recovery in stable condition
== END 2021-04-14 11:52 | disposition home or self-care (01) ==
LOC: OR 07:22
PROVIDERS: ATTEND Urology
DX: N40.0 Benign prostatic hyperplasia without lower urinary tract symptoms (principal); I10 Essential (primary) hypertension; E78.5 Hyperlipidemia, unspecified; J45.909 Unspecified asthma, uncomplicated; E11.9 Type 2 diabetes mellitus without complications; Z86.73 Personal history of transient ischemic attack (TIA), and cerebral infarction without residual deficits; F32.9 Major depressive disorder, single episode, unspecified; F20.9 Schizophrenia, unspecified
CPT/HCPCS: L8699; J2250; J1100; J0690; J2405; J2001; J3010; J0330; J2704; C9740

== ENCOUNTER 2022-01-19 16:54 | Inpatient (IN) | payer MEDICARE, MEDICAID ==
--- NOTE | 2022-01-19 17:17 | ED ---
General Adult HPI - General Chief complaint: Psychiatric Symptoms Stated complaint: Mental Health Time Seen by Provider: 01/19/22 16:55 Source: patient, EMS Mode of arrival: EMS Limitations: altered mental status - History of Present Illness Initial comments: Dictation was produced using [employer] dictation software. please excuse any grammatical, word or spelling errors. Chief Complaint: 51-year-old male presents emergency department for suicidal ideation. History of Present Illness: Patient 51-year-old male who has past medical hi story of depression. Patient states treated for suicidal ideation. Reports that he had a injection performed at [facility]. He states that it did not like the way that admitted field. Patient states that he feels suicidal and wants to jump out in front of traffic. Patient has any medical plates at this time. Denies any homicidal ideation. No visual or auditory hallucinations. The ROS documented in this emergency department record has been reviewed and confirmed by me. Those systems with pertinent positive or negative responses have been documented in the HPI. All other systems are other negative and/or noncontributory. PHYSICAL EXAM: General Impression: Alert and oriented x3, not in acute distress HEENT: Normocephalic atraumatic, extra-ocular movements intact, pupils equal and reactive to light bilaterally, mucous membranes moist. Cardiovascular: Heart regular rate and rhythm Chest: Able to complete full sentences, no retractions, no tachypnea Abdomen: abdomen soft, non-tender, non-distended, no organomegaly Musculoskeletal: Pulses present and equal in all extremities, no peripheral edema Motor: no focal deficits noted Neurological: CN II-XII grossly intact, no focal motor or sensory deficits noted Skin: Intact with no visualized rashes Psych: Normal affect and mood ED course: 51-year-old male presents to the emergency department for suicidal ideation. Vital Signs upon arrival are within acceptable limits. Patient denies any medical complaints. Patient medically cleared for EPS evaluation. Patient evaluated by EPS. Patient will be admitted to inpatient psychiatric unit. - Related Data Home Medications Medication Instructions Recorded Confirmed Omeprazole 40 mg PO DAILY 04/12/20 01/19/22 Tamsulosin [Flomax] 0.4 mg PO HS 04/12/20 01/19/22 Aspirin EC [Ecotrin Low Dose] 81 mg PO DAILY 07/09/20 01/19/22 amLODIPine [Norvasc] 10 mg PO DAILY 04/10/21 01/19/22 Atorvastatin [Lipitor] 10 mg PO HS 01/19/22 01/19/22 Cetirizine HCl [Zyrtec] 10 mg PO DAILY@1700 01/19/22 01/19/22 Ipratropium-Albuterol Nebulize 3 ml INHALATION RT-QID 01/19/22 01/19/22 [Duoneb 0.5 mg-3 mg/3 ml Soln] Omeprazole [PriLOSEC] 20 mg PO HS 01/19/22 01/19/22 busPIRone HCL 10 mg PO BID 01/19/22 01/19/22 fluPHENAZine decanoate [Prolixin 50 mg IM [id number] 01/19/22 01/19/22 Decanoate] glyBURIDE [Diabeta] 5 mg PO BID 01/19/22 01/19/22 lisinopriL [Zestril] 2.5 mg PO DAILY 01/19/22 01/19/22 sitaGLIPtin [Januvia] 100 mg PO DAILY 01/19/22 01/19/22 Allergies Allergy/AdvReac Type Severity Reaction Status Date / Time dicyclomine HCl [From Bentyl] Allergy Unknown Dyspnea Verified 01/19/22 20:40 latex Allergy Unknown Rash/Hives Verified 01/19/22 20:40 adhesive AdvReac Unknown Itching Verified 01/19/22 20:40 ciprofloxacin AdvReac Unknown Nausea Verified 01/19/22 20:40 Macrolide Antibiotics AdvReac Unknown Nausea Verified 01/19/22 20:40 sulfamethoxazole AdvReac Unknown Unknown Verified 01/19/22 20:40 [From Bactrim] trimethoprim [From Bactrim] AdvReac Unknown Unknown Verified 01/19/22 20:40 Review of Systems ROS Statement: Those systems with pertinent positive or pertinent negative responses have been documented in the HPI. ROS Other: All systems not noted in ROS Statement are negative. Past Medical History Past Medical History: Asthma, Chest Pain / Angina, COPD, CVA/TIA, Diabetes Mellitus, GERD/Reflux, Hearing Disorder / Deafness, Hyperlipidemia, Hypertension, Liver Disease, Osteoarthritis (OA), Pneumonia, Seizure Disorder, Sleep Apnea/CPAP/BIPAP Additional Past Medical History / Comment(s): states CVA at 35 yrs old, no weakness @ this time. states seizure at 35 yrs old., DDD- back & neck pain., carpal tunnel syndrome., hx. of cyst on kidney, uses cpap., states having abdominal pain with diarrhea and nausea ., Lives in a fdc with 2 other people. Has a caregiver.n Has [employer] public guardian. History of Any Multi-Drug Resistant Organisms: None Reported Past Surgical History: Heart Catheterization, Orthopedic Surgery Additional Past Surgical History / Comment(s): Cysts removed, left thumb surgery, colonoscopy 08/24/2019. Skin tags removed from both eyes. Past Anesthesia/Blood Transfusion Reactions: Motion Sickness, Postoperative Nausea & Vomiting (PONV) Past Psychological History: Anxiety, Bipolar, Depression, Schizophrenia Smoking Status: Former smoker - Past Family History Brother(s) Family Medical History: Diabetes Mellitus Additional Family Medical History / Comment(s): Patient has 2 brothers. One from complications from diabetes. The second is alive with diabetes. Sister(s) Family Medical History: Cancer Additional Family Medical History / Comment(s): Patient has one sister with breast cancer. Patient does not have any children. Father Family Medical History: Cancer Additional Family Medical History / Comment(s): Father in his 40s or 50s from colon cancer. Mother Family Medical History: Cancer Additional Family Medical History / Comment(s): Mother at age 68 from lung cancer. General Exam Limitations: altered mental status Course Vital Signs 01/19/22 17:03 Temperature 99.0 F Pulse Rate 83 Respiratory 16 Rate Blood Pressure 130/81 O2 Sat by Pulse 96 Oximetry Medical Decision Making - Lab Data Result diagrams: 01/20/22 09:42 01/20/22 09:42 Lab Results 01/19/22 01/20/22 Range/Units 23:10 00:33 POC Glucose (mg/dL) 189 H (70-110) mg/dL POC Glu Marker Shipments ID Anabell Dumont Coronavirus (PCR) Not Detected (Not Detectd) Disposition Clinical Impression: Suicidal behavior Disposition: ADMITTED IP TO THIS HOSP Condition: Stable
[2022-01-20 00:34] LABS: Glucose,Whole Blood 189 mg/dL (70-110)
[2022-01-20] MEDS ORDERED: MAGNESIUM HYDROXIDE 2,400 MG/10 ML CUP PO PRN (02:53)
[2022-01-20] MEDS ORDERED: HALOPERIDOL LACTATE 5 MG/ML 1 ML VIAL IM PRN (02:53)
[2022-01-20] MEDS ORDERED: MAG HYDROX/AL HYDROX/SIMETH 30 ML CUP PO PRN (02:53)
[2022-01-20] MEDS: ACETAMINOPHEN TAB 325 MG TAB PO PRN ×3 (03:10→20:13)
[2022-01-20 04:26] VITALS: RESP 18
[2022-01-20] MEDS ORDERED: PANTOPRAZOLE 40 MG TABLET PO SCH (07:30)
[2022-01-20 07:53] LABS: Glucose,Whole Blood 116 mg/dL (70-110)
[2022-01-20] MEDS: NICOTINE 14MG/24HR PATCH TRANSDERM SCH (08:17)
[2022-01-20] MEDS: busPIRone HCl 10 MG TAB PO SCH ×2 (08:18→20:10)
[2022-01-20] MEDS: PANTOPRAZOLE 40 MG TABLET PO SCH ×2 (08:18→17:07)
[2022-01-20] MEDS: ASPIRIN 81 MG PO SCH (08:18)
[2022-01-20] MEDS: LINAGLIPTIN 5 MG TABLET PO SCH (08:18)
[2022-01-20] MEDS: amLODIPine 10 MG TAB PO SCH (08:18)
[2022-01-20] MEDS: glipiZIDE 10 MG TAB PO SCH ×2 (08:18→17:07)
[2022-01-20 10:41] LABS: Basophils % (A) 0 %; Eosinophils # (A) 0.3 k/uL (0-0.7); Eosinophils % (A) 3 %; HCT 48.9 % (39.0-53.0); HGB 16.5 gm/dL (13.0-17.5); Lymphocytes # (A) 1.6 k/uL (1.0-4.8); Lymphocytes % (A) 18 %; MCH 29.9 pg (25.0-35.0); MCHC 33.7 g/dL (31.0-37.0); MCV 88.7 fL (80.0-100.0); Mean Platelet Volume 7.7; Monocytes # (A) 0.5 k/uL (0-1.0); Monocytes % (A) 6 %; Neutrophils % (A) 71 %; Platelet Count 210 k/uL (150-450); RBC 5.51 m/uL (4.30-5.90); RDW 13.3 % (11.5-15.5); WBC 8.5 k/uL (3.8-10.6)
[2022-01-20 11:00] LABS: ALT 35 U/L (4-49); AST 27 U/L (17-59); African American GFR (CKD) >90 (>60 ml/min/1.73 sqM); Albumin 4.5 g/dL (3.5-5.0); Alkaline Phosphatase 84 U/L (38-126); Anion Gap 7 mmol/L; Bilirubin, Delta 0.2 mg/dL (0.0-0.2); Bilirubin,Unconjugated 0.3 mg/dL (0.0-1.1); Blood Urea Nitrogen 10 mg/dL (9-20); Calcium 9.5 mg/dL (8.4-10.2); Carbon Dioxide 24 mmol/L (22-30); Chloride 106 mmol/L (98-107); Glucose 103 mg/dL (74-99); Non-African American GFR(CKD) >90 (>60 ml/min/1.73 sqM); Potassium 4.3 mmol/L (3.5-5.1); Sodium 137 mmol/L (137-145); Total Bilirubin 0.5 mg/dL (0.2-1.3)
--- NOTE | 2022-01-20 12:09 | P.HP ---
Psychiatric H&P - . H&P Date: 01/20/22 History & Physical: Allergies Allergy/AdvReac Type Severity Reaction Status Date / Time dicyclomine HCl [From Bentyl] Allergy Unknown Dyspnea Verified 01/19/22 20:40 latex Allergy Unknown Rash/Hives Verified 01/19/22 20:40 adhesive AdvReac Unknown Itching Verified 01/19/22 20:40 ciprofloxacin AdvReac Unknown Nausea Verified 01/19/22 20:40 Macrolide Antibiotics AdvReac Unknown Nausea Verified 01/19/22 20:40 sulfamethoxazole AdvReac Unknown Unknown Verified 01/19/22 20:40 [From Bactrim] trimethoprim [From Bactrim] AdvReac Unknown Unknown Verified 01/19/22 20:40 Vital Signs Temp 98.3 F 01/20/22 04:16 Pulse 72 01/20/22 08:00 Resp 18 01/20/22 04:16 BP 111/67 01/20/22 08:00 Pulse Ox 97 01/20/22 04:16 FiO2 Intake & Output 01/19/22 01/20/22 01/20/22 18:59 06:59 18:59 Weight 83.915 kg 78.642 kg Laboratory Last Values WBC 8.5 k/uL (3.8-10.6) 01/20/22 09:42 RBC 5.51 m/uL (4.30-5.90) 01/20/22 09:42 Hgb 16.5 gm/dL (13.0-17.5) 01/20/22 09:42 Hct 48.9 % (39.0-53.0) 01/20/22 09:42 MCV 88.7 fL (80.0-100.0) 01/20/22 09:42 MCH 29.9 pg (25.0-35.0) 01/20/22 09:42 MCHC 33.7 g/dL (31.0-37.0) 01/20/22 09:42 RDW 13.3 % (11.5-15.5) 01/20/22 09:42 Plt Count 210 k/uL (150-450) 01/20/22 09:42 MPV 7.7 01/20/22 09:42 Neutrophils % 71 % 01/20/22 09:42 Lymphocytes % 18 % 01/20/22 09:42 Monocytes % 6 % 01/20/22 09:42 Eosinophils % 3 % 01/20/22 09:42 Basophils % 0 % 01/20/22 09:42 Neutrophils # 6.0 k/uL (1.3-7.7) 01/20/22 09:42 Lymphocytes # 1.6 k/uL (1.0-4.8) 01/20/22 09:42 Monocytes # 0.5 k/uL (0-1.0) 01/20/22 09:42 Eosinophils # 0.3 k/uL (0-0.7) 01/20/22 09:42 Basophils # 0.0 k/uL (0-0.2) 01/20/22 09:42 Sodium 137 mmol/L (137-145) 01/20/22 09:42 Potassium 4.3 mmol/L (3.5-5.1) 01/20/22 09:42 Chloride 106 mmol/L (98-107) 01/20/22 09:42 Carbon Dioxide 24 mmol/L (22-30) 01/20/22 09:42 Anion Gap 7 mmol/L 01/20/22 09:42 BUN 10 mg/dL (9-20) 01/20/22 09:42 Creatinine 0.78 mg/dL (0.66-1.25) 01/20/22 09:42 Est GFR (CKD-EPI)AfAm >90 (>60 ml/min/1.73 sqM) 01/20/22 09:42 Est GFR (CKD-EPI)NonAf >90 (>60 ml/min/1.73 sqM) 01/20/22 09:42 Glucose 103 mg/dL (74-99) H 01/20/22 09:42 POC Glucose (mg/dL) 116 mg/dL (70-110) H 01/20/22 07:51 POC Glu Building Superintendent ID Eric Adame 01/20/22 07:51 Calcium 9.5 mg/dL (8.4-10.2) 01/20/22 09:42 Total Bilirubin 0.5 mg/dL (0.2-1.3) 01/20/22 09:42 Conjugated Bilirubin 0.0 mg/dL (0.0-0.3) 01/20/22 09:42 Unconjugated Bilirubin 0.3 mg/dL (0.0-1.1) 01/20/22 09:42 Delta Bilirubin 0.2 mg/dL (0.0-0.2) 01/20/22 09:42 AST 27 U/L (17-59) 01/20/22 09:42 ALT 35 U/L (4-49) 01/20/22 09:42 Alkaline Phosphatase 84 U/L (38-126) 01/20/22 09:42 Total Protein 7.0 g/dL (6.3-8.2) 01/20/22 09:42 Albumin 4.5 g/dL (3.5-5.0) 01/20/22 09:42 TSH 1.530 mIU/L (0.465-4.680) 01/20/22 09:42 Coronavirus (PCR) Not Detected (Not Detectd) 01/19/22 23:10 01/20/22 12:08 IDENTIFYING DATA: Patient is a single, on Social Security, 51-year-old male with significant history of schizophrenia who presents to the hospital for suicidal ideation with a plan to walk into traffic. HPI: Patient presented to the hospital on 01/19/2022 for suicidal ideation for the past few weeks with a plan to walk into traffic. The patient reports that he has been unhappy with his Prolixin Decanoate and his psychiatrist had a suggestion to have the dose increased. The patient reports that this medication causes him to feel "high all the time." He expresses a strong desire to be off the long-acting injectable and to start oral medications instead. He reports this is a big stressor for him that led up to him being suicidal. Furthermore, the patient does endorse uncontrolled psychotic symptoms including auditory hallucinations that are commanding him to kill himself as well as visual hallucinations of shadows and dark figures. The patient recently received Prolixin Decanoate 50 mg IM on the of this month. He receives this medication every 2 weeks. This is a point of contention for the patient as he does not wish to continue any long-acting injectable however it is noted that the patient has been out of the hospital for many years on this regimen. In regards to mood, the patient does endorse suicidal ideation. He does report a previous attempt by hanging himself along time ago. He denies any other significant symptoms of depression at this time. He reports no issues regarding his sleep or his appetite. He states that he socializes appropriately and spends time with family and friends. He reports no current manic symptoms and denies any significant symptoms of increased goal-directed activity, racing thoughts, grandiosity, or periods of excessive energy. In regards to substance use, patient is currently denying any marijuana, alcohol, or illicit drug use. He does report one pack per day of tobacco use. PAST PSYCHIATRIC HISTORY: Patient states that he has been increasingly diagnosed with schizophrenia and depression. The patient's current home medication regimen includes BuSpar 10 mg twice a day for anxiety and Prolixin Decanoate 50 mg IM every 2 weeks. The patient's last psychiatric hospitalization was in 2016 however prior to this hospitalization, the patient has had at least 30 inpatient psychiatric admissions. Patient is currently open with [facility] and sees Dr. Mohr. He reports one prior attempt at suicide in the past. PMH: Past Medical History: Asthma, Chest Pain / Angina, COPD, CVA/TIA, Diabetes Mellitus, GERD/Reflux, Hearing Disorder / Deafness, Hyperlipidemia, Hypertension, Liver Disease, Osteoarthritis (OA), Pneumonia, Seizure Disorder, Sleep Apnea/CPAP/BIPAP Additional Past Medical History / Comment(s): states CVA at 35 yrs old, no weakness @ this time. states seizure at 35 yrs old., DDD- back & neck pain., carpal tunnel syndrome., hx. of cyst on kidney, uses cpap., states having abdominal pain with diarrhea and nausea ., Lives in a chcf with 2 other people. Has a caregiver.n Has [employer] public guardian. History of Any Multi-Drug Resistant Organisms: None Reported Past Surgical History: Heart Catheterization, Orthopedic Surgery Additional Past Surgical History / Comment(s): Cysts removed, left thumb surgery, colonoscopy 08/24/2019. Skin tags removed from both eyes. Past Anesthesia/Blood Transfusion Reactions: Motion Sickness, Postoperative Nausea & Vomiting (PONV) Past Psychological History: Anxiety, Bipolar, Depression, Schizophrenia Smoking Status: 1 PPD ALLERGIES: Dicyclomine, latex, adhesive, ciprofloxacin, macrolides, sulfamethoxazole, trimethoprim CHEMICAL DEPENDENCY HISTORY: as per HPI FAMILY PSYCHIATRIC/SUBSTANCE USE HISTORY: Patient reports that his brother had depression. SOCIAL HISTORY: Patient was born and raised in [place]. He currently lives with roommates. He is single, never , and has no children. He does have a guardian. He receives Social Security. He denies any legal issues. MENTAL STATUS EXAM: General Appearance: Patient appears to be stated age is alert, directable, and attempts to cooperate. Patient appears to have good hygiene and grooming. Behavior: Patient is seated without any agitated behavior. Normal psychomotor activity. Eye contact is appropriate. Speech: Patient's speech is fluent and nonpressured. Mood/Affect: Patient reports their mood is "good." Affect is congruent and euthymic. Suicidality/Homicidality: Patient reports suicidal ideation however denies any homicidal ideation. Perceptions: Patient denies any visual hallucinations and denies any auditory hallucinations Though content/process: There is no evidence of any delusional thought content and thought process is linear and goal-directed. Memory and concentration: AOX3, grossly intact for the purposes of this session. Can spell "WORLD" backwards Judgment and insight: Poor STRENGTHS/WEAKNESSES: Strength is that the patient is open with [facility] and receives robust services. Weakness is that patient has severe and chronic mental illness. INTELLECT: average IMPRESSIONS: Schizophrenia Tobacco use disorder PLAN: -Patient is admitted under voluntary status to [facility]HU for stabilization of psychiatric symptoms and safety. Patient signed adult voluntary form and med ication consent and is placed in patient's chart. -Medications : Will start patient on Invega 3 mg by mouth at bedtime for acute psychosis BuSpar 10 mg by mouth twice a day for anxiety -Ativan and Haldol PRN for agitation/aggression -Patient was counselled on substance abuse and desired to cut back on use -Patient was informed of the risks, benefits and side effects of the medication and patient verbally consented to taking the medications. Patient signed med consent form and was placed in chart. -Internal Medicine consult to perform medical evaluation and physical. -NRT - nicotine patch - on board for discharge planning. Encourage patient to participate in groups to work on coping skills. 01/20/22 12:09
[2022-01-20 12:50] LABS: Glucose,Whole Blood 99 mg/dL (70-110)
[2022-01-20 14:27] LABS: Chol/HDL Ratio 2.76 Ratio; LDL Cholesterol,Calculated 65.2 mg/dL (0.0-131.0)
[2022-01-20] MEDS: LORATADINE 10 MG TAB PO SCH (15:48)
[2022-01-20] MEDS: LORazepam 1 MG TAB PO PRN ×2 (15:57→21:00)
[2022-01-20 17:30] LABS: Glucose,Whole Blood 92 mg/dL (70-110)
[2022-01-20] MEDS: ATORVASTATIN 10 MG TAB PO SCH (20:10)
[2022-01-20] MEDS: TAMSULOSIN 0.4 MG CAP.ER.24H PO SCH (20:10)
[2022-01-20] MEDS: PALIPERIDONE 3 MG TAB.ER.24 PO SCH (20:10)
[2022-01-20 20:14] LABS: Glucose,Whole Blood 137 mg/dL (70-110)
[2022-01-21 07:45] LABS: Glucose,Whole Blood 142 mg/dL (70-110)
[2022-01-21 08:27] VITALS: TEMP 97.1
[2022-01-21] MEDS: LINAGLIPTIN 5 MG TABLET PO SCH (08:27)
[2022-01-21] MEDS: PANTOPRAZOLE 40 MG TABLET PO SCH ×2 (08:27→17:37)
[2022-01-21] MEDS: NICOTINE 14MG/24HR PATCH TRANSDERM SCH (08:27)
[2022-01-21] MEDS: glipiZIDE 10 MG TAB PO SCH (08:27)
[2022-01-21] MEDS: busPIRone HCl 10 MG TAB PO SCH ×2 (08:28→20:04)
[2022-01-21] MEDS: ASPIRIN 81 MG PO SCH (08:28)
[2022-01-21] MEDS: amLODIPine 10 MG TAB PO SCH (08:28)
--- NOTE | 2022-01-21 11:01 | P.PN ---
Progress Note - Text Progress Note Date: 01/21/22 Interval History: Patient was seen resting in bed and was directable and agreeable to speak with race and sports book writer in the office. Currently the patient is reporting he is feeling "good." He reports continued auditory hallucinations but states they have decreased in intensity. He reports no visual hallucinations or paranoia today. He reports occasional ideas of reference with messages through the television but is unable to provide any specifics. He has been adherent with his medications and is not reporting any side effects aside from mild sedation. Mental Status Exam: General Appearance: Patient appears to be stated age is alert, directable, and cooperative. Behavior: Patient is calmly seated without any agitated behavior. Eye contact is appropriate. Speech: Patient's speech is fluent and nonpressured. Mood/Affect: Mood is improving mildly, affect is congruent and blunted. Suicidality/Homicidality: Patient denies having any suicidal or homicidal ideation intent or plan. Perceptions: Patient denies any visual hallucinations. He endorses auditory hallucinations. Though content/process: Ideas of reference. Memory and concentration: AOX3, grossly intact for the purposes of this session Judgment and insight: Improving mildly Vital Signs Temp 97.1 F L 01/21/22 08:00 Pulse 93 01/21/22 08:00 Resp 18 01/21/22 08:00 BP 105/64 01/21/22 08:00 Pulse Ox 94 L 01/21/22 08:00 FiO2 Laboratory Results - Last 24 Hours 01/20/22 01/20/22 01/20/22 09:42 09:42 12:49 POC Glucose (mg/dL) 99 POC Glu Group Director ID Eric Adame Estimated Ave Glu mg/dL 130 Hemoglobin A1c 6.2 H Triglycerides 133.00 Cholesterol 144.00 LDL Cholesterol, Calc 65.2 VLDL Cholesterol, Calc 26.60 HDL Cholesterol 52.20 Cholesterol/HDL Ratio 2.76 TSH 1.530 01/20/22 01/20/22 01/21/22 17:29 20:11 07:43 POC Glucose (mg/dL) 92 137 H 142 H POC Glu Group Director ID Eric Adame, Lizbeth De Leon [address] Glu mg/dL Hemoglobin A1c Triglycerides Cholesterol LDL Cholesterol, Calc VLDL Cholesterol, Calc HDL Cholesterol Cholesterol/HDL Ratio TSH Assessment Schizophrenia Tobacco use disorder Plan: -Patient continues to meet criteria for inpatient psychiatric admission for symptom stabilization and safety. Patient has signed adult voluntary form and medication consent and was placed in patient's chart. -Medications: Invega 3 mg by mouth at bedtime for acute psychosis BuSpar 10 mg by mouth twice a day for anxiety -When necessary Ativan and Haldol for agitation/aggression. -NRT - nicotine patch -SW on board for discharge planning. Encouraged the patient to participate in milieu.
[2022-01-21 12:47] LABS: Glucose,Whole Blood 49 mg/dL (70-110)
[2022-01-21 13:05] LABS: Glucose,Whole Blood 101 mg/dL (70-110)
[2022-01-21 14:28] LABS: Glucose,Whole Blood 63 mg/dL (70-110)
[2022-01-21 14:44] LABS: Glucose,Whole Blood 128 mg/dL (70-110)
[2022-01-21] MEDS: ACETAMINOPHEN TAB 325 MG TAB PO PRN ×2 (14:45→20:48)
[2022-01-21] MEDS: LORazepam 1 MG TAB PO PRN ×2 (14:45→20:48)
[2022-01-21] MEDS: LORATADINE 10 MG TAB PO SCH (17:37)
[2022-01-21 17:39] LABS: Glucose,Whole Blood 110 mg/dL (70-110)
[2022-01-21 20:02] LABS: Glucose,Whole Blood 212 mg/dL (70-110)
[2022-01-21] MEDS: TAMSULOSIN 0.4 MG CAP.ER.24H PO SCH (20:04)
[2022-01-21] MEDS: PALIPERIDONE 3 MG TAB.ER.24 PO SCH (20:04)
[2022-01-21] MEDS: ATORVASTATIN 10 MG TAB PO SCH (20:04)
[2022-01-22 07:42] LABS: Glucose,Whole Blood 116 mg/dL (70-110)
[2022-01-22] MEDS: NICOTINE 14MG/24HR PATCH TRANSDERM SCH (08:21)
[2022-01-22] MEDS: PANTOPRAZOLE 40 MG TABLET PO SCH (08:21)
[2022-01-22] MEDS: busPIRone HCl 10 MG TAB PO SCH (08:21)
[2022-01-22] MEDS: ASPIRIN 81 MG PO SCH (08:21)
[2022-01-22] MEDS: amLODIPine 10 MG TAB PO SCH (08:21)
[2022-01-22] MEDS: LINAGLIPTIN 5 MG TABLET PO SCH (08:21)
[2022-01-22 08:23] VITALS: BP 101/61; PULSE 83
[2022-01-22] MEDS: ACETAMINOPHEN TAB 325 MG TAB PO PRN (10:12)
[2022-01-22 12:33] LABS: Glucose,Whole Blood 89 mg/dL (70-110)
--- NOTE | 2022-01-22 13:16 | P.DS ---
Providers Date of admission: 01/20/22 02:52 Expected date of discharge: 01/22/22 Attending physician: Lewis Gaitan MD Consults: 01/20/22 02:53 Consult Physician Routine Consulting Provider: Francisco Newell Consult Reason/Comments: For H & P for Medical Follow Up Do you want consulting provider notified?: Yes Primary care physician: Physician Nonstaff - Discharge Diagnosis(es) (1) Schizophrenia Current Visit: Yes Status: Acute Priority: High (2) Tobacco use disorder, continuous Current Visit: Yes Status: Chronic Priority: Medium Hospital Course: Admission HPI: Patient is a single, on Social Security, 51-year-old male with significant history of schizophrenia who presents to the hospital for suicidal ideation with a plan to walk into traffic. Patient presented to the hospital on 01/19/2022 for suicidal ideation for the past few weeks with a plan to walk into traffic. The patient reports that he has been unhappy with his Prolixin Decanoate and his psychiatrist had a suggestion to have the dose increased. The patient reports that this medication causes him to feel "high all the time." He expresses a strong desire to be off the long-acting injectable and to start oral medications instead. He reports this is a big stressor for him that led up to him being suicidal. Furthermore, the patient does endorse uncontrolled psychotic symptoms including auditory hallucinations that are commanding him to kill himself as well as visual hallucinations of shadows and dark figures. The patient recently received Prolixin Decanoate 50 mg IM on the of this month. He receives this medication every 2 weeks. This is a point of contention for the patient as he does not wish to continue any long-acting injectable however it is noted that the patient has been out of the hospital for many years on this regimen. In regards to mood, the patient does endorse suicidal ideation. He does report a previous attempt by hanging himself along time ago. He denies any other significant symptoms of depression at this time. He reports no issues regarding his sleep or his appetite. He states that he socializes appropriately and spends time with family and friends. He reports no current manic symptoms and denies any significant symptoms of increased goal-directed activity, racing thoughts, grandiosity, or periods of excessive energy. In regards to substance use, patient is currently denying any marijuana, alcohol, or illicit drug use. He does report one pack per day of tobacco use. Patient states that he has been increasingly diagnosed with schizophrenia and depression. The patient's current home medication regimen includes BuSpar 10 mg twice a day for anxiety and Prolixin Decanoate 50 mg IM every 2 weeks. The patient's last psychiatric hospitalization was in 2015 however prior to this hospitalization, the patient has had at least 30 inpatient psychiatric admissions. Patient is currently open with [facility] and sees Dr. Mohr. He reports one prior attempt at suicide in the past. Hospital course: Upon admission to the unit patient was initially endorsing significant psychiatric symptoms including auditory hallucinations, visual hallucinations, as well as ideas of reference. Patient also reported suicidal ideation. Patient was however directable and agreeable to commence treatment. Patient got along well with other patients on the unit and followed unit protocol. Patient was compliant with the medications and denied any side effects throughout hospital course. Patient was started on Invega as per his preference as he wants to try different medication aside from Prolixin. Patient spoke of his stressors and engaged in therapy both group and individual. Patient was also seen by medical team for history and physical exam. Over the course of the hospitalization, patient was continued on this regimen of Prolixin and his home medication of BuSpar. He tolerated these medications well. He displayed gradual improvement in regards to started symptoms of psychosis. The patient did express a strong desire to be off Prolixin decanoate however this provider discussed with him that he has been on this medication for many years without hospitalization. Although he wishes to be off this medication, it is recommended that he continues this medication and that he discussed this with his outpatient psychiatric provider if he is expressing any significant side effects or if there are options for other medications. On the day of discharge, the patient is not reporting any suicidal or homicidal ideation, intention, and/or plan. He is not reporting any auditory or visual hallucinations. He is denying any paranoia or other delusions. The patient has been in adherent with his medications and is not reporting any significant side effects. The patient was counseled length on the points medication. Appropriate outpatient follow-up. Patient does not have significant history of substance use however was counseled on abstaining from all substances including alcohol and marijuana. Mental status exam: General Appearance: Patient appears to be stated age is alert, pleasant, and cooperative. Patient is in no acute distress and has fair hygiene and grooming Behavior: Patient is calmly seated without any agitated behavior. Speech: Patient's speech is fluent and nonpressured. Mood/Affect: Patient reports their mood is "good", affect is congruent, euthymic, and constricted in range. Suicidality/Homicidality: Patient denies having any suicidal or homicidal ideation intent or plan. Perceptions: Patient denies any auditory or visual hallucinations. Though content/process: There is no evidence of any delusional thought content and thought process is linear and goal-directed. Patient is future oriented. Memory and concentration: AOX3, grossly intact for the purposes of this session. Can spell "WORLD" backwards correctly. Judgment and insight: Improved with guarded prognosis Impression: Schizophrenia Tobacco use disorder Plan: -Continue with discharge today as patient has improved and stabilized psychiatrically and is not currently an imminent threat to himself and/or others. Patient will remain at chronically elevated risk for harm to self and/or others due to his severity and chronicity of his mental illness. -Continue medications: Invega 3 mg at bedtime for psychosis - may discuss with his outpatient provider possible transition to invega sustenna. Buspar 10 mg twice daily for anxiety Continue Prolixin Decanoate 50 mg IM. Patient encouraged to discuss with his outpatient provider other options. He was informed that he has been out of the hospital for many years on this regimen. -Patient was counseled on the need for medication compliance and appropriate follow-up at mental health and also primary care for medical issues. Patient verbalized understanding and agreed. -Social work to arrange for and conduct family meeting to ensure safety upon discharge and answer any questions/concerns. Social work also to arrange for patients follow up appointments with [facility] for psychiatric care along with follow up with primary care provider. -Patient counseled on abstaining from recreational drugs and marijuana and alcohol. Was informed/educated on the adverse effects on their physical and mental health. Patient verbally agreed and understood. Patient was offered substance abuse treatment however declined at this time. -Patient was instructed to return to the hospital or seek immediate medical care if their psychiatric or medical symptoms do worsen or reoccur. Allergies Allergy/AdvReac Type Severity Reaction Status Date / Time dicyclomine HCl [From Bentyl] Allergy Unknown Dyspnea Verified 01/19/22 20:40 latex Allergy Unknown Rash/Hives Verified 01/19/22 20:40 adhesive AdvReac Unknown Itching Verified 01/19/22 20:40 ciprofloxacin AdvReac Unknown Nausea Verified 01/19/22 20:40 Macrolide Antibiotics AdvReac Unknown Nausea Verified 01/19/22 20:40 sulfamethoxazole AdvReac Unknown Unknown Verified 01/19/22 20:40 [From Bactrim] trimethoprim [From Bactrim] AdvReac Unknown Unknown Verified 01/19/22 20:40 Laboratory Results WBC 8.5 k/uL (3.8-10.6) 01/20/22 09:42 RBC 5.51 m/uL (4.30-5.90) 01/20/22 09:42 Hgb 16.5 gm/dL (13.0-17.5) 01/20/22 09:42 Hct 48.9 % (39.0-53.0) 01/20/22 09:42 MCV 88.7 fL (80.0-100.0) 01/20/22 09:42 MCH 29.9 pg (25.0-35.0) 01/20/22 09:42 MCHC 33.7 g/dL (31.0-37.0) 01/20/22 09:42 RDW 13.3 % (11.5-15.5) 01/20/22 09:42 Plt Count 210 k/uL (150-450) 01/20/22 09:42 MPV 7.7 01/20/22 09:42 Neutrophils % 71 % 01/20/22 09:42 Lymphocytes % 18 % 01/20/22 09:42 Monocytes % 6 % 01/20/22 09:42 Eosinophils % 3 % 01/20/22 09:42 Basophils % 0 % 01/20/22 09:42 Neutrophils # 6.0 k/uL (1.3-7.7) 01/20/22 09:42 Lymphocytes # 1.6 k/uL (1.0-4.8) 01/20/22 09:42 Monocytes # 0.5 k/uL (0-1.0) 01/20/22 09:42 Eosinophils # 0.3 k/uL (0-0.7) 01/20/22 09:42 Basophils # 0.0 k/uL (0-0.2) 01/20/22 09:42 Sodium 137 mmol/L (137-145) 01/20/22 09:42 Potassium 4.3 mmol/L (3.5-5.1) 01/20/22 09:42 Chloride 106 mmol/L (98-107) 01/20/22 09:42 Carbon Dioxide 24 mmol/L (22-30) 01/20/22 09:42 Anion Gap 7 mmol/L 01/20/22 09:42 BUN 10 mg/dL (9-20) 01/20/22 09:42 Creatinine 0.78 mg/dL (0.66-1.25) 01/20/22 09:42 Est GFR (CKD-EPI)AfAm >90 (>60 ml/min/1.73 sqM) 01/20/22 09:42 Est GFR (CKD-EPI)NonAf >90 (>60 ml/min/1.73 sqM) 01/20/22 09:42 Glucose 103 mg/dL (74-99) H 01/20/22 09:42 POC Glucose (mg/dL) 89 mg/dL (70-110) 01/22/22 12:32 POC Glu Filament Cutter ID Felicia Connolly 01/22/22 12:[address] Glu mg/dL 130 01/20/22 09:42 Hemoglobin A1c 6.2 % (0.0-6.0) H 01/20/22 09:42 Calcium 9.5 mg/dL (8.4-10.2) 01/20/22 09:42 Total Bilirubin 0.5 mg/dL (0.2-1.3) 01/20/22 09:42 Conjugated Bilirubin 0.0 mg/dL (0.0-0.3) 01/20/22 09:42 Unconjugated Bilirubin 0.3 mg/dL (0.0-1.1) 01/20/22 09:42 Delta Bilirubin 0.2 mg/dL (0.0-0.2) 01/20/22 09:42 AST 27 U/L (17-59) 01/20/22 09:42 ALT 35 U/L (4-49) 01/20/22 09:42 Alkaline Phosphatase 84 U/L (38-126) 01/20/22 09:42 Total Protein 7.0 g/dL (6.3-8.2) 01/20/22 09:42 Albumin 4.5 g/dL (3.5-5.0) 01/20/22 09:42 Triglycerides 133.00 mg/dL (0.00-149.00) 01/20/22 09:42 Cholesterol 144.00 mg/dL (0.00-200.00) 01/20/22 09:42 LDL Cholesterol, Calc 65.2 mg/dL (0.0-131.0) 01/20/22 09:42 VLDL Cholesterol, Calc 26.60 mg/dL (5.00-40.00) 01/20/22 09:42 HDL Cholesterol 52.20 mg/dL (40.00-60.00) 01/20/22 09:42 Cholesterol/HDL Ratio 2.76 Ratio 01/20/22 09:42 TSH 1.530 mIU/L (0.465-4.680) 01/20/22 09:42 Coronavirus (PCR) Not Detected (Not Detectd) 01/19/22 23:10 Vital Signs Temp 97.1 F L 01/21/22 08:00 Pulse 83 01/22/22 08:22 Resp 18 01/21/22 08:00 BP 101/61 01/22/22 08:22 Pulse Ox 94 L 01/21/22 08:00 FiO2 Patient Condition at Discharge: Stable Plan - Discharge Summary Discharge Rx Participant: No New Discharge Prescriptions: New busPIRone HCl [Buspar] 10 mg PO BID 30 Days tab Nicotine 14Mg/24Hr Patch [Habitrol] 1 patch TRANSDERM DAILY 30 Days patch Paliperidone [Invega] 3 mg PO HS 30 Days tab Continue Tamsulosin [Flomax] 0.4 mg PO HS Omeprazole 40 mg PO DAILY Aspirin EC [Ecotrin Low Dose] 81 mg PO DAILY Omeprazole [PriLOSEC] 20 mg PO HS sitaGLIPtin [Januvia] 100 mg PO DAILY lisinopriL [Zestril] 2.5 mg PO DAILY glyBURIDE [Diabeta] 5 mg PO BID fluPHENAZine decanoate [Prolixin Decanoate] 50 mg IM [id number] amLODIPine [Norvasc] 10 mg PO DAILY Ipratropium-Albuterol Nebulize [Duoneb 0.5 mg-3 mg/3 ml Soln] 3 ml INHALATION RT-QID Cetirizine HCl [Zyrtec] 10 mg PO DAILY@1700 Atorvastatin [Lipitor] 10 mg PO HS Discontinued busPIRone HCL 10 mg PO BID Discharge Medication List Omeprazole 40 mg PO DAILY 04/12/20 [History] Tamsulosin [Flomax] 0.4 mg PO HS 04/12/20 [History] Aspirin EC [Ecotrin Low Dose] 81 mg PO DAILY 07/09/20 [History] amLODIPine [Norvasc] 10 mg PO DAILY 04/10/21 [History] Atorvastatin [Lipitor] 10 mg PO HS 01/19/22 [History] Cetirizine HCl [Zyrtec] 10 mg PO DAILY@1700 01/19/22 [History] Ipratropium-Albuterol Nebulize [Duoneb 0.5 mg-3 mg/3 ml Soln] 3 ml INHALATION RT-QID 01/19/22 [History] Omeprazole [PriLOSEC] 20 mg PO HS 01/19/22 [History] fluPHENAZine decanoate [Prolixin Decanoate] 50 mg IM [id number] 01/19/22 [History] glyBURIDE [Diabeta] 5 mg PO BID 01/19/22 [History] lisinopriL [Zestril] 2.5 mg PO DAILY 01/19/22 [History] sitaGLIPtin [Januvia] 100 mg PO DAILY 01/19/22 [History] Nicotine 14Mg/24Hr Patch [Habitrol] 1 patch TRANSDERM DAILY 30 Days patch 01/22/22 [Rx] Paliperidone [Invega] 3 mg PO HS 30 Days tab 01/22/22 [Rx] busPIRone HCl [Buspar] 10 mg PO BID 30 Days tab 01/22/22 [Rx] Follow up Appointment(s)/Referral(s): [facility] [Outside] - 01/30/22 9:30 am (01/30 @ 09:30-10:30 Marla Frederick 02/04 @ 11:30-12:00 Lilliana Mohr ) Nonstaff,Physician [Primary Care Provider] - 1-2 days Patient Instructions/Handouts: How to Stop Smoking (DC), Schizophrenia (DC) Activity/Diet/Wound Care/Special Instructions: Avoid the use of street drugs and alcohol. Take all prescriptions as prescribed. When you are in need of refills on your medications, please contact your medical provider and/or outpatient psychiatrist to have this done. Please go to scheduled outpatient appointment for aftercare treatment. If symptoms return or become worse, call the crisis line at and/or go to the nearest emergency room for evaluation. Discharge Disposition: HOME SELF-CARE
[2022-01-22] MEDS ORDERED: glipiZIDE 5 MG TAB PO SCH (17:30)
== END 2022-01-22 13:22 | disposition home or self-care (01) | DRG 880 ==
LOC: EC 16:54 → 3MHU 01-20 02:52
PROVIDERS: ADMIT Psychiatry & Neurology Psychiatry; ATTEND Psychiatry & Neurology Psychiatry
DX: F99 Mental disorder, not otherwise specified (principal); R45.851 Suicidal ideations; F20.9 Schizophrenia, unspecified; E11.9 Type 2 diabetes mellitus without complications; K21.9 Gastro-esophageal reflux disease without esophagitis; F41.9 Anxiety disorder, unspecified; E78.5 Hyperlipidemia, unspecified; G40.909 Epilepsy, unspecified, not intractable, without status epilepticus; H91.90 Unspecified hearing loss, unspecified ear; I10 Essential (primary) hypertension; J44.9 Chronic obstructive pulmonary disease, unspecified; M19.90 Unspecified osteoarthritis, unspecified site; G47.30 Sleep apnea, unspecified; Z87.01 Personal history of pneumonia (recurrent); K76.9 Liver disease, unspecified; F17.210 Nicotine dependence, cigarettes, uncomplicated; Z79.82 Long term (current) use of aspirin; Z79.899 Other long term (current) drug therapy; Z80.0 Family history of malignant neoplasm of digestive organs; Z80.1 Family history of malignant neoplasm of trachea, bronchus and lung; Z80.3 Family history of malignant neoplasm of breast; Z81.8 Family history of other mental and behavioral disorders; Z83.3 Family history of diabetes mellitus; Z86.73 Personal history of transient ischemic attack (TIA), and cerebral infarction without residual deficits; Z71.89 Other specified counseling
CPT/HCPCS: 36415; 80053; 80061; 82075; 82248; 83036; 84443; 85025; 87635; 99285

== ENCOUNTER 2022-10-03 12:15 | Emergency (ER) | payer MEDICARE, OTHER ==
[2022-10-03 12:28] VITALS: RESP 18; TEMP 98
[2022-10-03] MEDS ORDERED: KETOROLAC 15 MG/ML 1 ML VIAL IVP STA (12:48)
[2022-10-03] MEDS ORDERED: PANTOPRAZOLE 40 MG/10 ML VIAL IVP STA (12:48)
--- NOTE | 2022-10-03 13:13 | ED ---
Abdominal Pain HPI - General Chief Complaint: Abdominal Pain Stated Complaint: chest pain Time Seen by Provider: 10/03/22 12:30 Source: patient Mode of arrival: ambulatory Limitations: no limitations - History of Present Illness Initial Comments: 52-year-old male has a history of asthma, COPD, CVA who presents to the emergency department reporting epigastric discomfort. Started last night after he had 6 alcoholic drinks. He has a history of GERD denies history of ulcer. He is reporting to some nausea. No chest pain or shortness of breath. He does admit to some neck pain with some right arm pain. States that this pain is musculoskeletal in nature and is reproducible with movement. He denies fevers, chills or cough. Denies vomiting. No numbness, tingling or weakness in his extremities. Patient requesting a pain shot in triage. No other alleviating, precipitating or modifying factors - Related Data Home Medications Medication Instructions Recorded Confirmed Tamsulosin [Flomax] 0.4 mg PO HS@199904/12/20 10/11/22 Aspirin EC [Ecotrin Low Dose] 81 mg PO DAILY@0800 07/09/20 10/11/22 amLODIPine [Norvasc] 10 mg PO DAILY@0804/10/21 10/11/22 Atorvastatin [Lipitor] 10 mg PO HS@199901/19/22 10/11/22 Cetirizine HCl [Zyrtec] 10 mg PO DAILY@169901/19/22 10/11/22 Omeprazole [PriLOSEC] 20 mg PO BID@08,199901/19/22 10/11/22 lisinopriL [Zestril] 2.5 mg PO DAILY@79901/19/22 10/11/22 Cyclobenzaprine [Flexeril] 5 mg PO DAILY PRN 08/18/22 10/11/22 Ergocalciferol (Vitamin D2) 1,250 mcg PO FR 08/18/22 10/11/22 [Drisdol (50,000 Iu)] Meloxicam [Mobic] 7.5 mg PO DAILY@0808/18/22 10/11/22 ARIPiprazole [Abilify] 15 mg PO DAILY@79910/11/22 10/11/22 metFORMIN HCL ER [Glucophage XR] 500 mg PO BID 10/11/22 10/11/22 Previous Rx's Medication Instructions Recorded Melatonin 5 mg PO HS 30 Days #30 tab 08/24/22 Mirtazapine [Remeron] 15 mg PO HS 30 Days #30 tab 08/24/22 Allergies Allergy/AdvReac Type Severity Reaction Status Date / Time dicyclomine HCl [From Bentyl] Allergy Unknown Dyspnea Verified 10/11/22 21:03 latex Allergy Unknown Rash/Hives Verified 10/11/22 21:03 adhesive AdvReac Unknown Itching Verified 10/11/22 21:03 ciprofloxacin AdvReac Unknown Nausea Verified 10/11/22 21:03 Macrolide Antibiotics AdvReac Unknown Nausea Verified 10/11/22 21:03 sulfamethoxazole AdvReac Unknown Unknown Verified 10/11/22 21:03 [From Bactrim] trimethoprim [From Bactrim] AdvReac Unknown Unknown Verified 10/11/22 21:03 Review of Systems ROS Statement: Those systems with pertinent positive or pertinent negative responses have been documented in the HPI. ROS Other: All systems not noted in ROS Statement are negative. Past Medical History Past Medical History: Asthma, Chest Pain / Angina, COPD, CVA/TIA, Diabetes Mellitus, GERD/Reflux, Hearing Disorder / Deafness, Hyperlipidemia, Hypertension, Liver Disease, Osteoarthritis (OA), Pneumonia, Seizure Disorder, Sleep Apnea/CPAP/BIPAP Additional Past Medical History / Comment(s): states CVA at 35 yrs old, no weakness @ this time. states seizure at 35 yrs old., DDD- back & neck pain., carpal tunnel syndrome., hx. of cyst on kidney, uses cpap., states having abdominal pain with diarrhea and nausea ., Lives in a long-term with 2 other people. Has a caregiver.n Has [employer] public guardian. History of Any Multi-Drug Resistant Organisms: None Reported Past Surgical History: Heart Catheterization, Orthopedic Surgery Additional Past Surgical History / Comment(s): Cysts removed, left thumb surgery, colonoscopy 08/24/2019. Skin tags removed from both eyes. Past Anesthesia/Blood Transfusion Reactions: Motion Sickness, Postoperative Nausea & Vomiting (PONV) Past Psychological History: Anxiety, Bipolar, Depression, Schizophrenia Smoking Status: Current every day smoker Past Alcohol Use History: None Reported - Past Family History Brother(s) Family Medical History: Diabetes Mellitus Additional Family Medical History / Comment(s): Patient has 2 brothers. One from complications from diabetes. The second is alive with diabetes. Sister(s) Family Medical History: Cancer Additional Family Medical History / Comment(s): Patient has one sister with breast cancer. Patient does not have any children. Father Family Medical History: Cancer Additional Family Medical History / Comment(s): Father in his 40s or 50s from colon cancer. Mother Family Medical History: Cancer Additional Family Medical History / Comment(s): Mother at age 68 from lung cancer. General Exam Limitations: no limitations General appearance: alert, in no apparent distress Head exam: Present: atraumatic, normocephalic, normal inspection Eye exam: Present: normal appearance, PERRL, EOMI. Absent: scleral icterus, conjunctival injection, periorbital swelling ENT exam: Present: normal exam, mucous membranes moist Neck exam: Present: tenderness (to palpation of left trapezius muscle). Absent: meningismus, lymphadenopathy Respiratory exam: Present: normal lung sounds bilaterally. Absent: respiratory distress, wheezes, rales, rhonchi, stridor Cardiovascular Exam: Present: regular rate, normal rhythm, normal heart sounds. Absent: systolic murmur, diastolic murmur, rubs, gallop, clicks GI/Abdominal exam: Present: soft, normal bowel sounds. Absent: distended, tenderness, guarding, rebound, rigid Extremities exam: Present: normal inspection, full ROM, normal capillary refill. Absent: tenderness, pedal edema, joint swelling, calf tenderness Back exam: Present: normal inspection Neurological exam: Present: alert, oriented X3, CN II-XII intact Psychiatric exam: Present: normal affect, normal mood Skin exam: Present: warm, dry, intact, normal color. Absent: rash Course Vital Signs 10/03/22 10/03/22 12:25 14:05 Temperature 98 F Pulse Rate 81 82 Respiratory 18 18 Rate Blood Pressure 130/87 134/81 O2 Sat by Pulse 100 96 Oximetry Medical Decision Making - Medical Decision Making Was pt. sent in by a medical professional or institution (, PA, MUSIC THEORY TEACHER, urgent care, hospital, or assisted...) When possible be specific @ -No Did you speak to anyone other than the patient for history (EMS, parent, family, police, friend...)? What history was obtained from this source @ -No Did you review nursing and triage notes (agree or disagree)? Why? @ -I reviewed and agree with nursing and triage notes Were old charts reviewed (outside hosp., previous admission, EMS record, old EKG, old radiological studies, urgent care reports/EKG's, assisted records)? Report findings @ -old charts were reviewed - patient comes to ED frequently Differential Diagnosis (chest pain, altered mental status, abdominal pain women, abdominal pain men, vaginal bleeding, weakness, fever, dyspnea, syncope, headache, dizziness, GI bleed, back pain, seizure, CVA, palpatations, mental health, musculoskeletal)? @ -Differential Abdominal Pain Men: Appendicitis, cholecystitis, diverticulosis, ischemic bowel, pancreatitis, hepatitis, UTI, gastroenteritis, AAA, incarcerated hernia, bowel obstruction, constipation, inflammatory bowel, hepatitis, peptic ulcer disease, splenic infarction, perforated viscus, testicular torsion, this is not meant to be an all-inclusive list EKG interpreted by me (3pts min.). @ -As above X-rays interpreted by me (1pt min.). @ -[yes CT interpreted by me (1pt min.). @ -None done U/S interpreted by me (1pt. min.). @ -None done What testing was considered but not performed or refused? (CT, X-rays, U/S, labs)? Why? @ -None What meds were considered but not given or refused? Why? @ -None Did you discuss the management of the patient with other professionals (professionals i.e. , PA, MUSIC THEORY TEACHER, lab, RT, psych nurse, social media marketing specialist, internet application developer, teacher, affirmative action officer, case monitor)? Give summary @ -No Was smoking cessation discussed for >3mins.? @ -No Was critical care preformed (if so, how long)? @ -No Were there social determinants of health that impacted care today? How? (Homelessness, low income, unemployed, alcoholism, drug addiction, transportation, low edu. Level, literacy, decrease access to med. care, mcc, rehab)? @ -No Was there de-escalation of care discussed even if they declined (Discuss DNR or withdrawal of care, Hospice)? DNR status @ -No What co-morbidities impacted this encounter? (DM, HTN, Smoking, COPD, CAD, Cancer, CVA, ARF, Chemo, Hep., AIDS, mental health diagnosis, sleep apnea, morbid obesity)? @ -asthma, copd, dm Was patient admitted / discharged? Hospital course, mention meds given and route, prescriptions, significant lab abnormalities, going to OR and other pertinent info. @ -Upon arrival patient was placed into room 7. Through history and physical exam was performed. IV access was established laboratories were conducted. Patient was given Protonix and Toradol. He is reevaluated and reports improvement in his symptoms. Chest x-ray demonstrated no acute process. Discussed results with the patient. May benefit from a muscle relaxer due to reproduction of his pain with movement. Patient will be discharged home to follow up with his primary care doctor. He was agreeable to this. Patient was discharged home in stable condition Undiagnosed new problem with uncertain prognosis? @ -No Drug Therapy requiring intensive monitoring for toxicity (Heparin, Nitro, Insulin, Cardizem)? @ -No Were any procedures done? @ -No Diagnosis/symptom? @ -acute epigastric abd pain Acute, or Chronic, or Acute on Chronic? @ -acute Uncomplicated (without systemic symptoms) or Complicated (systemic symptoms)? @ -complicated Side effects of treatment? @ -No Exacerbation, Progression, or Severe Exacerbation? @ -No Poses a threat to life or bodily function? How? (Chest pain, USA, [place], pneumonia, PE, COPD, DKA, ARF, appy, cholecystitis, CVA, Diverticulitis, Homicidal, Suicidal, threat to staff... and all critical care pts) @ -No - Lab Data Result diagrams: 10/03/22 13:08 10/03/22 13:08 Lab Results 10/03/22 10/03/22 10/03/22 Range/Units 13:08 13:08 13:08 WBC 8.4 (3.8-10.6) k/uL RBC 5.19 (4.30-5.90) m/uL Hgb 16.4 (13.0-17.5) gm/dL Hct 44.8 (39.0-53.0) % MCV 86.3 (80.0-100.0) fL MCH 31.6 (25.0-35.0) pg MCHC 36.7 (31.0-37.0) g/dL RDW 13.1 (11.5-15.5) % Plt Count 174 (150-450) k/uL MPV 7.2 Neutrophils % 74 % Lymphocytes % 16 % Monocytes % 5 % Eosinophils % 3 % Basophils % 1 % Neutrophils # 6.2 (1.3-7.7) k/uL Lymphocytes # 1.4 (1.0-4.8) k/uL Monocytes # 0.4 (0-1.0) k/uL Eosinophils # 0.2 (0-0.7) k/uL Basophils # 0.1 (0-0.2) k/uL Hyperchromasia Slight Sodium 138 (137-145) mmol/L Potassium 3.8 (3.5-5.1) mmol/L Chloride 107 (98-107) mmol/L Carbon Dioxide 26 (22-30) mmol/L Anion Gap 5 mmol/L BUN 13 (9-20) mg/dL Creatinine 0.70 (0.66-1.25) mg/dL Est GFR (CKD-EPI)AfAm >90 (>60 ml/min/1.73 sqM) Est GFR (CKD-EPI)NonAf >90 (>60 ml/min/1.73 sqM) Glucose 164 H (74-99) mg/dL Calcium 9.1 (8.4-10.2) mg/dL Total Bilirubin 0.6 (0.2-1.3) mg/dL AST 29 (17-59) U/L ALT 47 (4-49) U/L Alkaline Phosphatase 64 (38-126) U/L Troponin I <0.012 (0.000-0.034) ng/mL Total Protein 6.3 (6.3-8.2) g/dL Albumin 4.0 (3.5-5.0) g/dL Lipase 70 (23-300) U/L - EKG Data EKG Comments: Demonstrates sinus rhythm with a rate of 67. MD interval 140. QRS 109. QTC of 422. No acute ST segment elevations or depressions Disposition Clinical Impression: Neck pain, Epigastric pain, Musculoskeletal neck pain Disposition: HOME SELF-CARE Condition: Stable Instructions (If sedation given, give patient instructions): Epigastric Pain (ED) Additional Instructions: Follow up with your primary care doctor in 2-4 days and return for any new or worsening symptoms Is patient prescribed a controlled substance at d/c from ED?: No Referrals: Ramya Saul MD [Primary Care Provider] - 1-2 days Time of Disposition: 13:55
[2022-10-03 13:20] LABS: Basophils # (A) 0.1 k/uL (0-0.2); Basophils % (A) 1 %; Eosinophils # (A) 0.2 k/uL (0-0.7); Eosinophils % (A) 3 %; HCT 44.8 % (39.0-53.0); HGB 16.4 gm/dL (13.0-17.5); Hyperchromasia Slight; Lymphocytes # (A) 1.4 k/uL (1.0-4.8); Lymphocytes % (A) 16 %; MCH 31.6 pg (25.0-35.0); MCHC 36.7 g/dL (31.0-37.0); MCV 86.3 fL (80.0-100.0); Mean Platelet Volume 7.2; Monocytes # (A) 0.4 k/uL (0-1.0); Monocytes % (A) 5 %; Neutrophils # (A) 6.2 k/uL (1.3-7.7); Neutrophils % (A) 74 %; Platelet Count 174 k/uL (150-450); RBC 5.19 m/uL (4.30-5.90); RDW 13.1 % (11.5-15.5); WBC 8.4 k/uL (3.8-10.6)
--- NOTE | 2022-10-03 13:22 | XR ---
EXAMINATION TYPE: XR chest 2V DATE OF EXAM: 10/03/2022 COMPARISON: 08/20/2022 HISTORY: Cough TECHNIQUE: Frontal and lateral views of the chest are obtained. FINDINGS: There is no focal air space opacity, pleural effusion, or pneumothorax seen. The cardiac silhouette size is within normal limits. The osseous structures are intact. IMPRESSION: No acute cardiopulmonary process.
[2022-10-03 13:32] LABS: ALT 47 U/L (4-49); AST 29 U/L (17-59); African American GFR (CKD) >90 (>60 ml/min/1.73 sqM); Alkaline Phosphatase 64 U/L (38-126); Anion Gap 5 mmol/L; Blood Urea Nitrogen 13 mg/dL (9-20); Calcium 9.1 mg/dL (8.4-10.2); Carbon Dioxide 26 mmol/L (22-30); Chloride 107 mmol/L (98-107); Glucose 164 mg/dL (74-99); Lipase 70 U/L (23-300); Non-African American GFR(CKD) >90 (>60 ml/min/1.73 sqM); Potassium 3.8 mmol/L (3.5-5.1); Sodium 138 mmol/L (137-145); Total Bilirubin 0.6 mg/dL (0.2-1.3); Total Protein 6.3 g/dL (6.3-8.2)
[2022-10-03] MEDS ORDERED: CYCLOBENZAPRINE 10MG STARTER 3 TAB BTL PO STA (13:57)
[2022-10-03 14:25] VITALS: BP 134/81; PULSE 82
== END 2022-10-03 14:10 | disposition home or self-care (01) ==
LOC: EC 12:15
DX: R10.13 Epigastric pain (principal); M54.2 Cervicalgia; I10 Essential (primary) hypertension; E11.9 Type 2 diabetes mellitus without complications; E78.5 Hyperlipidemia, unspecified; F31.9 Bipolar disorder, unspecified; F41.9 Anxiety disorder, unspecified; J44.9 Chronic obstructive pulmonary disease, unspecified; K21.9 Gastro-esophageal reflux disease without esophagitis; M19.90 Unspecified osteoarthritis, unspecified site; F17.200 Nicotine dependence, unspecified, uncomplicated; Z79.82 Long term (current) use of aspirin; Z79.899 Other long term (current) drug therapy; Z79.84 Long term (current) use of oral hypoglycemic drugs; Z79.1 Long term (current) use of non-steroidal anti-inflammatories (NSAID); Z88.1 Allergy status to other antibiotic agents; Z88.2 Allergy status to sulfonamides; Z91.040 Latex allergy status; Z88.8 Allergy status to other drugs, medicaments and biological substances
CPT/HCPCS: 36415; 93005; 80053; 83690; 84484; 85025; 71046; 99285; 96374; 96375; J1885; C9113

== ENCOUNTER 2022-10-11 20:25 | Emergency (ER) | payer MEDICARE, OTHER ==
[2022-10-11 20:37] VITALS: RESP 18; TEMP 98.1
--- NOTE | 2022-10-11 21:43 | XR ---
EXAMINATION TYPE: XR knee complete RT DATE OF EXAM: 10/11/2022 9:38 PM INDICATION: Patient age:Male; 52 years old; Reason for study: pain; COMPARISON: None. TECHNIQUE: The Right knee(s) was examined in Frontal, lateral and oblique projections. FINDINGS: No evidence of any acute osseous pathology, soft tissue swelling, or joint effusion is no marixa. IMPRESSION: 1. No acute osseous pathology.
--- NOTE | 2022-10-11 21:44 | XR ---
EXAMINATION TYPE: XR tibia fibula RT DATE OF EXAM: 10/11/2022 9:38 PM INDICATION: Patient age:Male; 52 years old; Reason for study: PAIN; [facility]. COMPARISON: None TECHNIQUE: The right tibia/fibula was examined in AP and lateral projections. FINDINGS: No evidence of any acute osseous pathology, joint dislocation, or soft tissue swelling is n oted. IMPRESSION: No evidence of acute fracture.
--- NOTE | 2022-10-11 21:46 | ED ---
General Adult HPI - General Chief complaint: Extremity Injury, Lower Stated complaint: Leg Pain Time Seen by Provider: 10/11/22 20:28 Source: patient, EMS, RN notes reviewed Mode of arrival: EMS Limitations: no limitations - History of Present Illness Initial comments: 52-year-old male presents emergency Department with chief complaint of left leg pain. He states the pain starts at the knee and goes down the leg. States it started yesterday after doing a lot of work but denies injury. He states it is worse with movement and better with rest. He is able to walk on it. He denies taking anything for pain at home. - Related Data Home Medications Medication Instructions Recorded Confirmed Tamsulosin [Flomax] 0.4 mg PO HS@199904/12/20 10/11/22 Aspirin EC [Ecotrin Low Dose] 81 mg PO DAILY@0800 07/09/20 10/11/22 amLODIPine [Norvasc] 10 mg PO DAILY@0800 04/10/21 10/11/22 Atorvastatin [Lipitor] 10 mg PO HS@199901/19/22 10/11/22 Cetirizine HCl [Zyrtec] 10 mg PO DAILY@1700 01/19/22 10/11/22 Omeprazole [PriLOSEC] 20 mg PO BID@08,199901/19/22 10/11/22 lisinopriL [Zestril] 2.5 mg PO DAILY@0801/19/22 10/11/22 Cyclobenzaprine [Flexeril] 5 mg PO DAILY PRN 08/18/22 10/11/22 Ergocalciferol (Vitamin D2) 1,250 mcg PO FR 08/18/22 10/11/22 [Drisdol (50,000 Iu)] Meloxicam [Mobic] 7.5 mg PO DAILY@0808/18/22 10/11/22 ARIPiprazole [Abilify] 15 mg PO DAILY@79910/11/22 10/11/22 metFORMIN HCL ER [Glucophage XR] 500 mg PO BID 10/11/22 10/11/22 Previous Rx's Medication Instructions Recorded Melatonin 5 mg PO HS 30 Days #30 tab 08/24/22 Mirtazapine [Remeron] 15 mg PO HS 30 Days #30 tab 08/24/22 Allergies Allergy/AdvReac Type Severity Reaction Status Date / Time dicyclomine HCl [From Bentyl] Allergy Unknown Dyspnea Verified 10/11/22 21:03 latex Allergy Unknown Rash/Hives Verified 10/11/22 21:03 adhesive AdvReac Unknown Itching Verified 10/11/22 21:03 ciprofloxacin AdvReac Unknown Nausea Verified 10/11/22 21:03 Macrolide Antibiotics AdvReac Unknown Nausea Verified 10/11/22 21:03 sulfamethoxazole AdvReac Unknown Unknown Verified 10/11/22 21:03 [From Bactrim] trimethoprim [From Bactrim] AdvReac Unknown Unknown Verified 10/11/22 21:03 Review of Systems ROS Statement: Those systems with pertinent positive or pertinent negative responses have been documented in the HPI. ROS Other: All systems not noted in ROS Statement are negative. Past Medical History Past Medical History: Asthma, Chest Pain / Angina, COPD, CVA/TIA, Diabetes Mellitus, GERD/Reflux, Hearing Disorder / Deafness, Hyperlipidemia, Hypertension, Liver Disease, Osteoarthritis (OA), Pneumonia, Seizure Disorder, Sleep Apnea/CPAP/BIPAP Additional Past Medical History / Comment(s): states CVA at 35 yrs old, no weakness @ this time. states seizure at 35 yrs old., DDD- back & neck pain., carpal tunnel syndrome., hx. of cyst on kidney, uses cpap., states having abdominal pain with diarrhea and nausea ., Lives in a retirement with 2 other people. Has a caregiver.n Has [employer] public guardian. History of Any Multi-Drug Resistant Organisms: None Reported Past Surgical History: Heart Catheterization, Orthopedic Surgery Additional Past Surgical History / Comment(s): Cysts removed, left thumb surgery, colonoscopy 08/24/2019. Skin tags removed from both eyes. Past Anesthesia/Blood Transfusion Reactions: Motion Sickness, Postoperative Nausea & Vomiting (PONV) Past Psychological History: Anxiety, Bipolar, Depression, Schizophrenia Smoking Status: Current every day smoker Past Alcohol Use History: None Reported - Past Family History Brother(s) Family Medical History: Diabetes Mellitus Additional Family Medical History / Comment(s): Patient has 2 brothers. One from complications from diabetes. The second is alive with diabetes. Sister(s) Family Medical History: Cancer Additional Family Medical History / Comment(s): Patient has one sister with breast cancer. Patient does not have any children. Father Family Medical History: Cancer Additional Family Medical History / Comment(s): Father in his 40s or 50s from colon cancer. Mother Family Medical History: Cancer Additional Family Medical History / Comment(s): Mother at age 68 from lung cancer. General Exam Limitations: no limitations General appearance: alert, in no apparent distress Head exam: Present: atraumatic, normocephalic, normal inspection Eye exam: Present: normal appearance, PERRL, EOMI ENT exam: Present: normal exam, mucous membranes moist Neck exam: Present: normal inspection, full ROM. Absent: tenderness, meningismus, lymphadenopathy Respiratory exam: Present: normal lung sounds bilaterally. Absent: respiratory distress, rales, rhonchi, stridor Cardiovascular Exam: Present: regular rate, normal rhythm, normal heart sounds. Absent: systolic murmur, diastolic murmur, rubs, gallop, clicks GI/Abdominal exam: Present: soft, normal bowel sounds. Absent: distended, tenderness, guarding, rebound, rigid Extremities exam: Present: normal inspection, full ROM, normal capillary refill, other (DT and PT pulses 2+, normal cap refill, 5/5 strength with dorsiflexion and plantarflexion). Absent: tenderness, pedal edema, joint swelling, calf tenderness Back exam: Present: normal inspection, full ROM Skin exam: Present: warm, dry, intact, normal color. Absent: rash Course Vital Signs 10/11/22 20:28 Temperature 98.1 F Pulse Rate 59 L Respiratory 18 Rate Blood Pressure 127/103 O2 Sat by Pulse 99 Oximetry Medical Decision Making - Medical Decision Making Was pt. sent in by a medical professional or institution (, PA, LOADING SHOVEL OILER, urgent care, hospital, or penitentiary...) When possible be specific @ -No Did you speak to anyone other than the patient for history (EMS, parent, family, police, friend...)? What history was obtained from this source @ -No Did you review nursing and triage notes (agree or disagree)? Why? @ -I reviewed and agree with nursing and triage notes Were old charts reviewed (outside hosp., previous admission, EMS record, old EKG, old radiological studies, urgent care reports/EKG's, penitentiary records)? Report findings @ -No old charts were reviewed Differential Diagnosis (chest pain, altered mental status, abdominal pain women, abdominal pain men, vaginal bleeding, weakness, fever, dyspnea, syncope, headache, dizziness, GI bleed, back pain, seizure, CVA, palpatations, mental health, musculoskeletal)? @ -Differential Musculoskeletal Muscular strain, contusion, ligament sprain, fracture, arthritis, septic arthritis, bursitis, cellulitis, muscle spasm, nerve compression, DVT, arterial occlusion, herpes zoster, electrolyte abnormality, tumor.... This is not meant to be in all inclusive list EKG interpreted by me (3pts min.). @ -None X-rays interpreted by me (1pt min.). @ -X-ray right knee and tib-fib show no acute fractures. CT interpreted by me (1pt min.). @ -None done U/S interpreted by me (1pt. min.). @ -None done What testing was considered but not performed or refused? (CT, X-rays, U/S, labs)? Why? @ -None What meds were considered but not given or refused? Why? @ -None Did you discuss the management of the patient with other professionals (professionals i.e. , PA, LOADING SHOVEL OILER, lab, RT, psych nurse, social media assistant, drapery counselor, teacher, [place] customs and border officer, case technician)? Give summary @ -No Was smoking cessation discussed for >3mins.? @ -No Was critical care preformed (if so, how long)? @ -No Were there social determinants of health that impacted care today? How? (Homelessness, low income, unemployed, alcoholism, drug addiction, transp ortation, low edu. Level, literacy, decrease access to med. care, mcc, rehab)? @ -No Was there de-escalation of care discussed even if they declined (Discuss DNR or withdrawal of care, Hospice)? DNR status @ -No What co-morbidities impacted this encounter? (DM, HTN, Smoking, COPD, CAD, Cancer, CVA, ARF, Chemo, Hep., AIDS, mental health diagnosis, sleep apnea, morbid obesity)? @ -None Was patient admitted / discharged? Hospital course, mention meds given and route, prescriptions, significant lab abnormalities, going to OR and other pertinent info. @ -Discharged. Patient presented to the emergency department with chief complaint of right leg pain starting at the knee and extending down to his ankle. He states this started yesterday after doing a lot of work but denied injury. X-ray right knee and tib-fib show no acute fracture. Patient discharged in stable condition. Discussed case with my attending, Undiagnosed new problem with uncertain prognosis? @ -No Drug Therapy requiring intensive monitoring for toxicity (Heparin, Nitro, Insulin, Cardizem)? @ -No Were any procedures done? @ -No Diagnosis/symptom? @ -knee pain Acute, or Chronic, or Acute on Chronic? @ -Acute Uncomplicated (without systemic symptoms) or Complicated (systemic symptoms)? @ -Uncomplicated Side effects of treatment? @ -No Exacerbation, Progression, or Severe Exacerbation? @ -No Poses a threat to life or bodily function? How? (Chest pain, USA, [place], pneumonia, PE, COPD, DKA, ARF, appy, cholecystitis, CVA, Diverticulitis, Homicidal, Suicida l, threat to staff... and all critical care pts) @ -No Disposition Clinical Impression: Strain of right knee and leg Disposition: HOME SELF-CARE Condition: Stable Instructions (If sedation given, give patient instructions): Knee Pain (ED) Additional Instructions: Please return to the Emergency Department if symptoms worsen or any other concerns. Is patient prescribed a controlled substance at d/c from ED?: No Referrals: Ramya Saul MD [Primary Care Provider] - 1-2 days Time of Disposition: 22:08
[2022-10-11 22:31] VITALS: BP 120/78; PULSE 65
== END 2022-10-11 22:32 | disposition home or self-care (01) ==
LOC: EC 20:25
DX: S86.911A Strain of unspecified muscle(s) and tendon(s) at lower leg level, right leg, initial encounter (principal); J44.9 Chronic obstructive pulmonary disease, unspecified; E11.9 Type 2 diabetes mellitus without complications; I10 Essential (primary) hypertension; G47.30 Sleep apnea, unspecified; F41.9 Anxiety disorder, unspecified; F31.9 Bipolar disorder, unspecified; F17.200 Nicotine dependence, unspecified, uncomplicated; K21.9 Gastro-esophageal reflux disease without esophagitis; E78.5 Hyperlipidemia, unspecified; M19.90 Unspecified osteoarthritis, unspecified site; Z86.73 Personal history of transient ischemic attack (TIA), and cerebral infarction without residual deficits; Z79.82 Long term (current) use of aspirin; Z79.1 Long term (current) use of non-steroidal anti-inflammatories (NSAID); Z79.84 Long term (current) use of oral hypoglycemic drugs; Z79.899 Other long term (current) drug therapy; Z91.040 Latex allergy status; Z88.2 Allergy status to sulfonamides; Z88.6 Allergy status to analgesic agent; Z91.09 Other allergy status, other than to drugs and biological substances; Z88.8 Allergy status to other drugs, medicaments and biological substances; X58.XXXA Exposure to other specified factors, initial encounter
CPT/HCPCS: 99283

== ENCOUNTER 2022-10-13 16:01 | Emergency (ER) | payer MEDICARE, OTHER ==
[2022-10-13 16:16] VITALS: TEMP 98
--- NOTE | 2022-10-13 17:48 | ED ---
General Adult HPI - General Source: patient, RN notes reviewed Mode of arrival: ambulatory Limitations: no limitations <Luz Franklin - Last Filed: 10/13/22 17:48> <Jeanette De Paz - Last Filed: 10/13/22 23:13> - General Chief complaint: Nausea/Vomiting/Diarrhea Stated complaint: Abd pain Time Seen by Provider: 10/13/22 17:48 - History of Present Illness Initial comments: 52-year-old male with no significant past medical history presents the emergency department with a chief complaint of nausea, vomiting, diarrhea and abdominal pain for the last 3 days. Denies any chest pain or shortness of b reath. Denies fevers. (Luz Franklin) Patient is a 52-year-old male presents to the emergency department for abdominal pain. Patient reports lower abdominal pain for the past year. He has had consistent nausea and 4-5 episodes of diarrhea today, nonbloody. Denies recent antibiotic use and history of C. diff. Patient states he presents today because he feels dehydrated. He is tolerating oral intake. States he was supposed to get a colonoscopy but has not gotten one yet. His last one was 10 years ago states he had polyps removed. He denies vomiting, blood in stool. Denies fever, chills. Does report mild dry cough. Denies chest pain and shortness of breath. (Jeanette De Paz) - Related Data Home Medications Medication Instructions Recorded Confirmed Tamsulosin [Flomax] 0.4 mg PO HS@199904/12/20 10/13/22 Aspirin EC [Ecotrin Low Dose] 81 mg PO DAILY@0800 07/09/20 10/13/22 amLODIPine [Norvasc] 10 mg PO DAILY@0800 04/10/21 10/13/22 Atorvastatin [Lipitor] 10 mg PO HS@199901/19/22 10/13/22 Cetirizine HCl [Zyrtec] 10 mg PO DAILY@1700 01/19/22 10/13/22 Omeprazole [PriLOSEC] 20 mg PO BID@0800,199901/19/22 10/13/22 lisinopriL [Zestril] 2.5 mg PO DAILY@0800 01/19/22 10/13/22 Cyclobenzaprine [Flexeril] 5 mg PO DAILY PRN 08/18/22 10/13/22 Ergocalciferol (Vitamin D2) 1,250 mcg PO FR 08/18/22 10/13/22 [Drisdol (50,000 Iu)] Meloxicam [Mobic] 7.5 mg PO DAILY@0800 08/18/22 10/13/22 ARIPiprazole [Abilify] 15 mg PO DAILY@0800 10/11/22 10/13/22 metFORMIN HCL ER [Glucophage XR] 500 mg PO BID 10/11/22 10/13/22 Previous Rx's Medication Instructions Recorded Melatonin 5 mg PO HS 30 Days #30 tab 08/24/22 Mirtazapine [Remeron] 15 mg PO HS 30 Days #30 tab 08/24/22 Ibuprofen [Motrin] 800 mg PO Q6HR #30 tab 10/13/22 Ondansetron Odt [Zofran Odt] 4 mg PO Q8HR PRN #10 tab 10/13/22 Allergies Allergy/AdvReac Type Severity Reaction Status Date / Time dicyclomine HCl [From Bentyl] Allergy Unknown Dyspnea Verified 10/13/22 22:32 latex Allergy Unknown Rash/Hives Verified 10/13/22 22:32 adhesive AdvReac Unknown Itching Verified 10/13/22 22:32 ciprofloxacin AdvReac Unknown Nausea Verified 10/13/22 22:32 Macrolide Antibiotics AdvReac Unknown Nausea Verified 10/13/22 22:32 sulfamethoxazole AdvReac Unknown Unknown Verified 10/13/22 22:32 [From Bactrim] trimethoprim [From Bactrim] AdvReac Unknown Unknown Verified 10/13/22 22:32 Review of Systems ROS Other: All systems not noted in ROS Statement are negative. <Luz Franklin - Last Filed: 10/13/22 17:48> ROS Other: All systems not noted in ROS Statement are negative. <Jeanette De Paz - Last Filed: 10/13/22 23:13> ROS Statement: Those systems with pertinent positive or pertinent negative responses have been documented in the HPI. Past Medical History Past Medical History: Asthma, Chest Pain / Angina, COPD, CVA/TIA, Diabetes Mellitus, GERD/Reflux, Hearing Disorder / Deafness, Hyperlipidemia, Hypertension, Liver Disease, Osteoarthritis (OA), Pneumonia, Seizure Disorder, Sleep Apnea/CPAP/BIPAP Additional Past Medical History / Comment(s): states CVA at 35 yrs old, no weakness @ this time. states seizure at 35 yrs old., DDD- back & neck pain., carpal tunnel syndrome., hx. of cyst on kidney, uses cpap., states having abdominal pain with diarrhea and nausea ., Lives in a [facility] with 2 other people. Has a caregiver.n Has [employer] public guardian. History of Any Multi-Drug Resistant Organisms: None Reported Past Surgical History: Heart Catheterization, Orthopedic Surgery Additional Past Surgical History / Comment(s): Cysts removed, left thumb surgery, colonoscopy 08/24/2019. Skin tags removed from both eyes. Past Anesthesia/Blood Transfusion Reactions: Motion Sickness, Postoperative Nausea & Vomiting (PONV) Past Psychological History: Anxiety, Bipolar, Depression, Schizophrenia Smoking Status: Current every day smoker Past Alcohol Use History: None Reported Past Drug Use History: None Reported - Past Family History Brother(s) Family Medical History: Diabetes Mellitus Additional Family Medical History / Comment(s): Patient has 2 brothers. One from complications from diabetes. The second is alive with diabetes. Sister(s) Family Medical History: Cancer Additional Family Medical History / Comment(s): Patient has one sister with breast cancer. Patient does not have any children. Father Family Medical History: Cancer Additional Family Medical History / Comment(s): Father in his 40s or 50s from colon cancer. Mother Family Medical History: Cancer Additional Family Medical History / Comment(s): Mother at age 68 from lung cancer. <Luz Franklin - Last Filed: 10/13/22 17:48> General Exam Limitations: no limitations <Luz Franklin - Last Filed: 10/13/22 17:48> General appearance: alert, in no apparent distress Head exam: Present: atraumatic, normocephalic, normal inspection ENT exam: Present: mucous membranes moist Respiratory exam: Present: normal lung sounds bilaterally. Absent: respiratory distress, wheezes, rales, rhonchi, stridor Cardiovascular Exam: Present: regular rate, normal rhythm, normal heart sounds. Absent: systolic murmur, diastolic murmur, rubs, gallop, clicks GI/Abdominal exam: Present: soft, normal bowel sounds. Absent: distended, tenderness, guarding, rebound, rigid Neurological exam: Present: alert, oriented X3, CN II-XII intact Psychiatric exam: Present: normal affect, normal mood Skin exam: Present: warm, dry, intact, normal color. Absent: rash <Jeanette De Paz - Last Filed: 10/13/22 23:13> - General Exam Comments Initial Comments: Visual Physical Exam Vital signs reviewed General: Well-appearing, nontoxic, no acute distress. Head: Normocephalic, atraumatic Eyes: PERRLA, EOMI ENT: Airway patent Chest: Nonlabored breathing Skin: No visual rash, normal skin tone Neuro: Alert and oriented 3 Musculoskeletal: No gross abnormalities (Luz Franklin) Course Vital Signs 10/13/22 10/13/22 16:14 22:00 Temperature 98 F Pulse Rate 81 78 Respiratory 18 16 Rate Blood Pressure 120/77 124/68 O2 Sat by Pulse 98 99 Oximetry Medical Decision Making - Lab Data Result diagrams: 10/13/22 17:49 10/13/22 17:49 <Jeanette De Paz - Last Filed: 10/13/22 23:13> - Medical Decision Making Was pt. sent in by a medical professional or institution (, PA, SENIOR ECONOMIST, urgent care, hospital, or prison...) When possible be specific @ -[No] Did you speak to anyone other than the patient for history (EMS, parent, family, police, friend...)? What history was obtained from this source @ -[No] Did you review nursing and triage notes (agree or disagree)? Why? @ -[I reviewed and agree with nursing and triage notes] Were old charts reviewed (outside hosp., previous admission, EMS record, old EKG, old radiological studies, urgent care reports/EKG's, prison records)? Report findings @ -[No old charts were reviewed] Differential Diagnosis (chest pain, altered mental status, abdominal pain women, abdominal pain men, vaginal bleeding, weakness, fever, dyspnea, syncope, headache, dizziness, GI bleed, back pain, seizure, CVA, palpatations, mental health)? @ -Differential Abdominal Pain Men: Appendicitis, cholecystitis, diverticulosis, ischemic bowel, pancreatitis, hepatitis, UTI, gastroenteritis, AAA, incarcerated hernia, bowel obstruction, constipation, inflammatory bowel, hepatitis, peptic ulcer disease, splenic infar ction, perforated viscus, testicular torsion, this is not meant to be an all- inclusive list EKG interpreted by me (3pts min.). @ -[As above] X-rays interpreted by me (1pt min.). @ -[None done] CT interpreted by me (1pt min.). @ -Yes, CT of the abdomen and pelvis with contrast is negative for acute process. U/S interpreted by me (1pt. min.). @ -[None done] What testing was considered but not performed or refused? (CT, X-rays, U/S, labs)? Why? @ -[None] What meds were considered but not given or refused? Why? @ -[None] Did you discuss the management of the patient with other professionals (professionals i.e. , PA, SENIOR ECONOMIST, lab, RT, psych nurse, social work manager, scrap drop operator, teacher, electronic intelligence officer, nurse case management)? Give summary @ -[No] Was smoking cessation discussed for >3mins.? @ -[No] Was critical care preformed (if so, how long)? @ -[No] Were there social determinants of health that impacted care today? How? (Homelessness, low income, unemployed, alcoholism, drug addiction, transportation, low edu. Level, literacy, decrease access to med. care, long-term, rehab)? @ -[No] Was there de-escalation of care discussed even if they declined (Discuss DNR or withdrawal of care, Hospice)? DNR status @ -[No] What co-morbidities impacted this encounter? (DM, HTN, Smoking, COPD, CAD, Cancer, CVA, ARF, Chemo, Hep., AIDS, mental health diagnosis, sleep apnea, morbid obesity)? @ -[None] Was patient admitted / discharged? Hospital course, mention meds given and route, prescriptions, significant lab abnormalities, going to OR and other pertinent info. @ -patient presenting for chronic abdominal pain. The abdomen is soft and nontender. Patient is afebrile, no vomiting. Laboratory studies obtained and are relatively unremarkable. CT of the abdomen and pelvis with contrast is negative for acute process. Patient given Toradol and Zofran. He then requested stronger pain medication. He is given 1 dose of Dilaudid. Results discussed with patient. At this time there are no diagnostic studies to explain patient's symptoms. Patient is frustrated with lack of answers today he is encouraged to follow-up for scope. Undiagnosed new problem with uncertain prognosis? @ -[No] Drug Therapy requiring intensive monitoring for toxicity (Heparin, Nitro, Insulin, Cardizem)? @ -[No] Were any procedures done? @ -[No] Diagnosis/symptom? @ -abdominal pain Acute, or Chronic, or Acute on Chronic? @ -chronic Uncomplicated (without systemic symptoms) or Complicated (systemic symptoms)? @ -uncomplicated Side effects of treatment? @ -[No] Exacerbation, Progression, or Severe Exacerbation? @ -[No] Poses a threat to life or bodily function? How? (Chest pain, USA, SD, pneumonia, PE, COPD, DKA, ARF, appy, cholecystitis, CVA, Diverticulitis, Homicidal, Suicidal, threat to staff... and all critical care pts) @ -[No] Dr. Mccloud is my attending (Jeanette De Paz) - Lab Data Lab Results 10/13/22 10/13/22 10/13/22 Range/Units 17:49 17:49 17:49 WBC 6.7 (3.8-10.6) k/uL RBC 5.19 (4.30-5.90) m/uL Hgb 16.4 (13.0-17.5) gm/dL Hct 45.4 (39.0-53.0) % MCV 87.6 (80.0-100.0) fL MCH 31.6 (25.0-35.0) pg MCHC 36.0 (31.0-37.0) g/dL RDW 13.1 (11.5-15.5) % Plt Count 179 (150-450) k/uL MPV 7.9 Neutrophils % 63 % Lymphocytes % 23 % Monocytes % 6 % Eosinophils % 5 % Basophils % 1 % Neutrophils # 4.2 (1.3-7.7) k/uL Lymphocytes # 1.6 (1.0-4.8) k/uL Monocytes # 0.4 (0-1.0) k/uL Eosinophils # 0.4 (0-0.7) k/uL Basophils # 0.0 (0-0.2) k/uL Hyperchromasia Slight VBG pH (7.31-7.41) VBG pCO2 (37-51) mmHg VBG HCO3 (24-28) mmol/L Sodium 141 (137-145) mmol/L Potassium 4.0 (3.5-5.1) mmol/L Chloride 108 H (98-107) mmol/L Carbon Dioxide 27 (22-30) mmol/L Anion Gap 6 mmol/L BUN 11 (9-20) mg/dL Creatinine 0.77 (0.66-1.25) mg/dL Est GFR (CKD-EPI)AfAm >90 (>60 ml/min/1.73 sqM) Est GFR (CKD-EPI)NonAf >90 (>60 ml/min/1.73 sqM) Glucose 134 H (74-99) mg/dL Plasma Lactic Acid Hunter (0.7-2.0) mmol/L Calcium 8.6 (8.4-10.2) mg/dL Total Bilirubin 0.5 (0.2-1.3) mg/dL AST 27 (17-59) U/L ALT 48 (4-49) U/L Alkaline Phosphatase 75 (38-126) U/L Total Protein 6.6 (6.3-8.2) g/dL Albumin 4.2 (3.5-5.0) g/dL Lipase 92 (23-300) U/L Urine Color Yellow Urine Appearance Clear (Clear) Urine pH 7.0 (5.0-8.0) Ur Specific Bryant 1.013 (1.001-1.035) Urine Protein Negative (Negative) Urine Glucose (UA) 1+ H (Negative) Urine Ketones Negative (Negative) Urine Blood Negative (Negative) Urine Nitrite Negative (Negative) Urine Bilirubin Negative (Negative) Urine Urobilinogen <2.0 (<2.0) mg/dL Ur Leukocyte Esterase Negative (Negative) Acetone, Qual Negative (Negative) Influenza Type A (PCR) (Not Detectd) Influenza Type B (PCR) (Not Detectd) RSV (PCR) (Not Detectd) SARS-CoV-2 (PCR) (Not Detectd) 10/13/22 10/13/22 10/13/22 Range/Units 17:49 19:39 19:39 WBC (3.8-10.6) k/uL RBC (4.30-5.90) m/uL Hgb (13.0-17.5) gm/dL Hct (39.0-53.0) % MCV (80.0-100.0) fL MCH (25.0-35.0) pg MCHC (31.0-37.0) g/dL RDW (11.5-15.5) % Plt Count (150-450) k/uL MPV Neutrophils % % Lymphocytes % % Monocytes % % Eosinophils % % Basophils % % Neutrophils # (1.3-7.7) k/uL Lymphocytes # (1.0-4.8) k/uL Monocytes # (0-1.0) k/uL Eosinophils # (0-0.7) k/uL Basophils # (0-0.2) k/uL Hyperchromasia VBG pH 7.36 (7.31-7.41) VBG pCO2 46 (37-51) mmHg VBG HCO3 26 (24-28) mmol/L Sodium (137-145) mmol/L Potassium (3.5-5.1) mmol/L Chloride (98-107) mmol/L Carbon Dioxide (22-30) mmol/L Anion Gap mmol/L BUN (9-20) mg/dL Creatinine (0.66-1.25) mg/dL Est GFR (CKD-EPI)AfAm (>60 ml/min/1.73 sqM) Est GFR (CKD-EPI)NonAf (>60 ml/min/1.73 sqM) Glucose (74-99) mg/dL Plasma Lactic Acid Hunter 1.2 (0.7-2.0) mmol/L Calcium (8.4-10.2) mg/dL Total Bilirubin (0.2-1.3) mg/dL AST (17-59) U/L ALT (4-49) U/L Alkaline Phosphatase (38-126) U/L Total Protein (6.3-8.2) g/dL Albumin (3.5-5.0) g/dL Lipase (23-300) U/L Urine Color Urine Appearance (Clear) Urine pH (5.0-8.0) Ur Specific Bryant (1.001-1.035) Urine Protein (Negative) Urine Glucose (UA) (Negative) Urine Ketones (Negative) Urine Blood (Negative) Urine Nitrite (Negative) Urine Bilirubin (Negative) Urine Urobilinogen (<2.0) mg/dL Ur Leukocyte Esterase (Negative) Acetone, Qual (Negative) Influenza Type A (PCR) Not Detected (Not Detectd) Influenza Type B (PCR) Not Detected (Not Detectd) RSV (PCR) Not Detected (Not Detectd) SARS-CoV-2 (PCR) Not Detected (Not Detectd) Disposition <Luz Franklin - Last Filed: 10/13/22 17:48> Is patient prescribed a controlled substance at d/c from ED?: No <ZandraJeanette - Last Filed: 10/13/22 23:13> Clinical Impression: Abdominal pain, Diarrhea Disposition: HOME SELF-CARE Condition: Good Instructions (If sedation given, give patient instructions): Chronic Abdominal Pain (ED) Additional Instructions: Follow-up with primary care provider and GI specialist for possible scope. take medication as directed. Return to the emergency department if you experience new, concerning, or worsening symptoms. Prescriptions: Ibuprofen [Motrin] 800 mg PO Q6HR #30 tab Ondansetron Odt [Zofran Odt] 4 mg PO Q8HR PRN #10 tab PRN Reason: Nausea Referrals: Ramya Saul MD [Primary Care Provider] - 1-2 days
[2022-10-13] MEDS ORDERED: ONDANSETRON 4 MG/2 ML VIAL IVP STA (19:45)
[2022-10-13] MEDS ORDERED: SODIUM CHLORIDE 0.9% 1,000 ML IV STA (19:46)
[2022-10-13] MEDS ORDERED: KETOROLAC 15 MG/ML 1 ML VIAL IVP STA (19:46)
[2022-10-13 21:10] LABS: VBG PH 7.36 (7.31-7.41)
[2022-10-13 21:16] LABS: Basophils % (A) 1 %; Eosinophils # (A) 0.4 k/uL (0-0.7); Eosinophils % (A) 5 %; HCT 45.4 % (39.0-53.0); HGB 16.4 gm/dL (13.0-17.5); Hyperchromasia Slight; Lymphocytes # (A) 1.6 k/uL (1.0-4.8); Lymphocytes % (A) 23 %; MCH 31.6 pg (25.0-35.0); MCV 87.6 fL (80.0-100.0); Mean Platelet Volume 7.9; Monocytes # (A) 0.4 k/uL (0-1.0); Monocytes % (A) 6 %; Neutrophils # (A) 4.2 k/uL (1.3-7.7); Neutrophils % (A) 63 %; Platelet Count 179 k/uL (150-450); RBC 5.19 m/uL (4.30-5.90); RDW 13.1 % (11.5-15.5); WBC 6.7 k/uL (3.8-10.6)
[2022-10-13 21:21] LABS: Appearance,Urine Clear (Clear); Bilirubin,Urine Negative (Negative); Blood,Urine Negative (Negative); Color,Urine Yellow; Glucose,Urine (UA) 1+ (Negative); Ketones,Urine Negative (Negative); Leukocyte Esterase,Urine Negative (Negative); Nitrite,Urine Negative (Negative); Protein,Urine Negative (Negative); Specific Gravity,Urine 1.013 (1.001-1.035); Urobilinogen,Urine <2.0 mg/dL (<2.0)
[2022-10-13] MEDS ORDERED: HYDROmorphone 0.5 MG/0.5 ML SYRINGE IVP STA (21:27)
[2022-10-13 21:28] LABS: ALT 48 U/L (4-49); AST 27 U/L (17-59); African American GFR (CKD) >90 (>60 ml/min/1.73 sqM); Albumin 4.2 g/dL (3.5-5.0); Alkaline Phosphatase 75 U/L (38-126); Anion Gap 6 mmol/L; Blood Urea Nitrogen 11 mg/dL (9-20); Calcium 8.6 mg/dL (8.4-10.2); Carbon Dioxide 27 mmol/L (22-30); Chloride 108 mmol/L (98-107); Glucose 134 mg/dL (74-99); Lipase 92 U/L (23-300); Non-African American GFR(CKD) >90 (>60 ml/min/1.73 sqM); Sodium 141 mmol/L (137-145); Total Bilirubin 0.5 mg/dL (0.2-1.3); Total Protein 6.6 g/dL (6.3-8.2)
--- NOTE | 2022-10-13 22:25 | CT ---
EXAMINATION TYPE: CT abdomen pelvis w con CT DLP: 1002.2 mGycm, Automated exposure control for dose reduction was used. DATE OF EXAM: 10/13/2022 10:11 PM COMPARISON: CT abdomen pelvis most recent from 09/07/2020, 08/26/2019. CLINICAL INDICATION:Male, 52 years old with history of lower abd pain; Nausea, dry heaving, abdominal pain, diarrhea x3days. TECHNIQUE: Standard CT of the abdomen and pelvis following the administration of 80 cc of Isovue 30 0 IV contrast material. Coronal and sagittal reformats were performed. FINDINGS: LOWER CHEST: Posterior dependent subsegmental atelectasis is noted the left lower lobe. ABDOMEN LIVER: Unremarkable GALLBLADDER AND BILE DUCTS: Unremarkable. PANCREAS: Unremarkable. SPLEEN: Stable cyst with peripheral calcification measuring up to 5.5 cm. Favored to be benign. ADRENAL GLANDS: Unremarkable. KIDNEYS AND URETERS: No evidence of hydronephrosis or renal calculus. Kidneys enhance symmetrically. Stable bilateral renal cysts. Contrast demonstrated within both collecting systems on the delayed pha se. PELVIS BLADDER: Unremarkable REPRODUCTIVE: Posttreatment changes of the prostate gland. ABDOMEN & PELVIS STOMACH AND BOWEL: Stomach and duodenum are unremarkable. No focal wall thickening or surrounding inf lammatory changes. Appendix is not visualized however there is no significant inflammatory changes wi thin the right lower quadrant. No evidence of bowel obstruction. PERITONEUM: No evidence of pneumoperitoneum or free fluid. VASCULATURE: No evidence of aortic aneurysm. MUSCULOSKELETAL: No acute osseous abnormalities. Stable heterogenous sclerotic appearance of the S1 v ertebral body and is considered benign. Multilevel Schmorl's nodes. Multilevel mild degenerative hough ges of the visualized spine. LYMPH NODES: No gross evidence for lymphadenopathy. SOFT TISSUE/ABDOMINAL WALL: Unremarkable IMPRESSION: No acute abdominal/pelvic process.
[2022-10-13 23:02] VITALS: BP 124/68; PULSE 78; RESP 16
== END 2022-10-13 22:50 | disposition home or self-care (01) ==
LOC: EC 16:01
DX: R19.7 Diarrhea, unspecified (principal); J44.9 Chronic obstructive pulmonary disease, unspecified; E11.9 Type 2 diabetes mellitus without complications; I10 Essential (primary) hypertension; G47.30 Sleep apnea, unspecified; E78.5 Hyperlipidemia, unspecified; M19.90 Unspecified osteoarthritis, unspecified site; K21.9 Gastro-esophageal reflux disease without esophagitis; F41.9 Anxiety disorder, unspecified; F31.9 Bipolar disorder, unspecified; F17.200 Nicotine dependence, unspecified, uncomplicated; Z79.82 Long term (current) use of aspirin; Z79.1 Long term (current) use of non-steroidal anti-inflammatories (NSAID); Z79.899 Other long term (current) drug therapy; Z91.040 Latex allergy status; Z88.2 Allergy status to sulfonamides; Z91.09 Other allergy status, other than to drugs and biological substances; Z88.6 Allergy status to analgesic agent; Z88.8 Allergy status to other drugs, medicaments and biological substances; Z86.73 Personal history of transient ischemic attack (TIA), and cerebral infarction without residual deficits; Z20.822 Contact with and (suspected) exposure to COVID-19
CPT/HCPCS: 36415; 80053; 82803; 82009; 83605; 83690; 85025; 81003; 87636; 74177; 99284; 96374; 96375 ×2; 96361; J2405; J1885; J1170; Q9967

== ENCOUNTER 2022-10-14 10:05 | Emergency (ER) | payer MEDICARE, OTHER ==
--- NOTE | 2022-10-14 10:35 | ED ---
Abdominal Pain HPI - General Chief Complaint: Abdominal Pain Stated Complaint: Recheck Time Seen by Provider: 10/14/22 10:17 Source: patient, RN notes reviewed Mode of arrival: ambulatory Limitations: no limitations - History of Present Illness Initial Comments: 52-year-old male present emergency Department chief complaint of abdominal pain and stating that he cannot eat or drink is upsets his stomach. He denies any vomiting denies any diarrhea currently. This ongoing issue. Patient has not followed up as directed is not taking his medications as directed. Patient denies any fevers chills no chest pain no shortness of breath. He has no dysuria. - Related Data Home Medications Medication Instructions Recorded Confirmed Tamsulosin [Flomax] 0.4 mg PO HS@199904/12/20 10/14/22 Aspirin EC [Ecotrin Low Dose] 81 mg PO DAILY@0800 07/09/20 10/14/22 amLODIPine [Norvasc] 10 mg PO DAILY@0800 04/10/21 10/14/22 Atorvastatin [Lipitor] 10 mg PO HS@199901/19/22 10/14/22 Cetirizine HCl [Zyrtec] 10 mg PO DAILY@1700 01/19/22 10/14/22 Omeprazole [PriLOSEC] 20 mg PO BID@08,199901/19/22 10/14/22 lisinopriL [Zestril] 2.5 mg PO DAILY@0800 01/19/22 10/14/22 Cyclobenzaprine [Flexeril] 5 mg PO DAILY PRN 08/18/22 10/14/22 Ergocalciferol (Vitamin D2) 1,250 mcg PO FR 08/18/22 10/14/22 [Drisdol (50,000 Iu)] Meloxicam [Mobic] 7.5 mg PO DAILY@0800 08/18/22 10/14/22 ARIPiprazole [Abilify] 15 mg PO DAILY@0800 10/11/22 10/14/22 metFORMIN HCL ER [Glucophage XR] 500 mg PO BID 10/11/22 10/14/22 Previous Rx's Medication Instructions Recorded Melatonin 5 mg PO HS 30 Days #30 tab 08/24/22 Mirtazapine [Remeron] 15 mg PO HS 30 Days #30 tab 08/24/22 Ibuprofen [Motrin] 800 mg PO Q6HR #30 tab 10/13/22 Ondansetron Odt [Zofran Odt] 4 mg PO Q8HR PRN #10 tab 10/13/22 Allergies Allergy/AdvReac Type Severity Reaction Status Date / Time dicyclomine HCl [From Bentyl] Allergy Unknown Dyspnea Verified 10/14/22 10:37 latex Allergy Unknown Rash/Hives Verified 10/14/22 10:37 adhesive AdvReac Unknown Itching Verified 10/14/22 10:37 ciprofloxacin AdvReac Unknown Nausea Verified 10/14/22 10:37 Macrolide Antibiotics AdvReac Unknown Nausea Verified 10/14/22 10:37 sulfamethoxazole AdvReac Unknown Unknown Verified 10/14/22 10:37 [From Bactrim] trimethoprim [From Bactrim] AdvReac Unknown Unknown Verified 10/14/22 10:37 Review of Systems ROS Statement: Those systems with pertinent positive or pertinent negative responses have been documented in the HPI. ROS Other: All systems not noted in ROS Statement are negative. Past Medical History Past Medical History: Asthma, Chest Pain / Angina, COPD, CVA/TIA, Diabetes Mellitus, GERD/Reflux, Hearing Disorder / Deafness, Hyperlipidemia, Hypertension, Liver Disease, Osteoarthritis (OA), Pneumonia, Seizure Disorder, Sleep Apnea/CPAP/BIPAP Additional Past Medical History / Comment(s): states CVA at 35 yrs old, no weakness @ this time. states seizure at 35 yrs old., DDD- back & neck pain., carpal tunnel syndrome., hx. of cyst on kidney, uses cpap., states having abdominal pain with diarrhea and nausea ., Lives in a custodial with 2 other people. Has a caregiver.n Has [employer] public guardian. History of Any Multi-Drug Resistant Organisms: None Reported Past Surgical History: Heart Catheterization, Orthopedic Surgery Additional Past Surgical History / Comment(s): Cysts removed, left thumb surgery, colonoscopy 08/24/2019. Skin tags removed from both eyes. Past Anesthesia/Blood Transfusion Reactions: Motion Sickness, Postoperative Nausea & Vomiting (PONV) Past Psychological History: Anxiety, Bipolar, Depression, Schizophrenia Smoking Status: Current every day smoker Past Alcohol Use History: None Reported Past Drug Use History: None Reported - Past Family History Brother(s) Family Medical History: Diabetes Mellitus Additional Family Medical History / Comment(s): Patient has 2 brothers. One from complications from diabetes. The second is alive with diabetes. Sister(s) Family Medical History: Cancer Additional Family Medical History / Comment(s): Patient has one sister with breast cancer. Patient does not have any children. Father Family Medical History: Cancer Additional Family Medical History / Comment(s): Father in his 40s or 50s from colon cancer. Mother Family Medical History: Cancer Additional Family Medical History / Comment(s): Mother at age 68 from lung cancer. General Exam Limitations: no limitations General appearance: alert, in no apparent distress Head exam: Present: atraumatic, normocephalic, normal inspection Eye exam: Present: normal appearance, PERRL, EOMI. Absent: scleral icterus, conjunctival injection, periorbital swelling ENT exam: Present: normal exam, normal oropharynx, mucous membranes moist Neck exam: Present: normal inspection, full ROM. Absent: tenderness, meningismus, lymphadenopathy Respiratory exam: Present: normal lung sounds bilaterally. Absent: respiratory distress, wheezes, rales, rhonchi, stridor Cardiovascular Exam: Present: regular rate, normal rhythm, normal heart sounds. Absent: systolic murmur, diastolic murmur, rubs, gallop, clicks GI/Abdominal exam: Present: soft, tenderness, normal bowel sounds. Absent: distended, guarding, rebound, rigid Back exam: Absent: CVA tenderness (R), CVA tenderness (L) Neurological exam: Present: alert Skin exam: Present: warm, dry, intact, normal color. Absent: rash Course Vital Signs 10/14/22 10/14/22 10:11 11:12 Temperature 98.4 F 98.2 F Pulse Rate 85 86 Respiratory 20 17 Rate Blood Pressure 118/79 129/72 O2 Sat by Pulse 99 97 Oximetry Medical Decision Making - Medical Decision Making Was pt. sent in by a medical professional or institution (, PA, WINDOWS MOBILE DEVELOPER, urgent care, hospital, or care home...) When possible be specific @ -No Did you speak to anyone other than the patient for history (EMS, parent, family, police, friend...)? What history was obtained from this source @ -No Did you review nursing and triage notes (agree or disagree)? Why? @ -I reviewed and agree with nursing and triage notes Were old charts reviewed (outside hosp., previous admission, EMS record, old EKG, old radiological studies, urgent care reports/EKG's, care home records)? Report findings @ -Reviewed and lab for studies from yesterday. CBC and comp Differential Diagnosis (chest pain, altered mental status, abdominal pain women, abdominal pain men, vaginal bleeding, weakness, fever, dyspnea, syncope, headache, dizziness, GI bleed, back pain, seizure, CVA, palpatations, mental health, musculoskeletal)? @ -Differential Abdominal Pain Men: Appendicitis, cholecystitis, diverticulosis, ischemic bowel, pancreatitis, hepatitis, UTI, gastroenteritis, AAA, incarcerated hernia, bowel obstruction, constipation, inflammatory bowel, hepatitis, peptic ulcer disease, splenic infarction, perforated viscus, testicular torsion, this is not meant to be an all-inclusive listble EKG interpreted by me (3pts min.). @ -None X-rays interpreted by me (1pt min.). @ -None done CT interpreted by me (1pt min.). @ -None done U/S interpreted by me (1pt. min.). @ -None done What testing was considered but not performed or refused? (CT, X-rays, U/S, labs)? Why? @ -Consider labs, possible imaging patient declines stating he only wants pain meds and to be admitted for IV fluids What meds were considered but not given or refused? Why? @ -None Did you discuss the management of the patient with other professionals (professionals i.e. , PA, WINDOWS MOBILE DEVELOPER, lab, RT, psych nurse, social media campaign manager, director of radio services, teacher, special police officer, rn case management)? Give summary @ -No Was smoking cessation discussed for >3mins.? @ -No Was critical care preformed (if so, how long)? @ -No Were there social determinants of health that impacted care today? How? (Homelessness, low income, unemployed, alcoholism, drug addiction, transportation, low edu. Level, literacy, decrease access to med. care, half-way, rehab)? @ -No Was there de-escalation of care discussed even if they declined (Discuss DNR or withdrawal of care, Hospice)? DNR status @ -No What co-morbidities impacted this encounter? (DM, HTN, Smoking, COPD, CAD, Cancer, CVA, ARF, Chemo, Hep., AIDS, mental health diagnosis, sleep apnea, morbid obesity)? @ -Chronic abdominal pain Was patient admitted / discharged? Hospital course, mention meds given and route, prescriptions, significant lab abnormalities, going to OR and other pertinent info. @ -Discharge/AMA patient refused laboratory studies stating that he wanted pain medication and to be admitted for IV fluid hydration though patient has no clinical signs of dehydration patient left stating he was given to follow-up. Undiagnosed new problem with uncertain prognosis? @ -No Drug Therapy requiring intensive monitoring for toxicity (Heparin, Nitro, Insulin, Cardizem)? @ -No Were any procedures done? @ -No Diagnosis/symptom? @ -Chronic abdominal pain Acute, or Chronic, or Acute on Chronic? @ -Chronic Uncomplicated (without systemic symptoms) or Complicated (systemic symptoms)? @ -Uncomplicated Side effects of treatment? @ -No Exacerbation, Progression, or Severe Exacerbation? @ -No Poses a threat to life or bodily function? How? (Chest pain, [place], [place], pneumonia, PE, COPD, DKA, ARF, appy, cholecystitis, CVA, Diverticulitis, Homicidal, Suicidal, threat to staff... and all critical care pts) @ -No Disposition Clinical Impression: Chronic abdominal pain Disposition: HOME SELF-CARE Condition: Stable Instructions (If sedation given, give patient instructions): Abdominal Pain (ED) Additional Instructions: Please return to the Emergency Department if symptoms worsen or any other concerns. Is patient prescribed a controlled substance at d/c from ED?: No Referrals: Ramya Saul MD [Primary Care Provider] - 1-2 days Time of Disposition: 10:35
[2022-10-14 11:15] VITALS: BP 129/72; PULSE 86; RESP 17; TEMP 98.2
== END 2022-10-14 10:45 | disposition home or self-care (01) ==
LOC: EC 10:05
DX: G89.29 Other chronic pain (principal); R10.9 Unspecified abdominal pain; I10 Essential (primary) hypertension; J44.9 Chronic obstructive pulmonary disease, unspecified; K21.9 Gastro-esophageal reflux disease without esophagitis; M19.90 Unspecified osteoarthritis, unspecified site; E11.9 Type 2 diabetes mellitus without complications; E78.5 Hyperlipidemia, unspecified; F31.9 Bipolar disorder, unspecified; F41.9 Anxiety disorder, unspecified; G47.30 Sleep apnea, unspecified; F17.200 Nicotine dependence, unspecified, uncomplicated; Z79.1 Long term (current) use of non-steroidal anti-inflammatories (NSAID); Z79.82 Long term (current) use of aspirin; Z79.899 Other long term (current) drug therapy; Z88.1 Allergy status to other antibiotic agents; Z88.2 Allergy status to sulfonamides; Z88.8 Allergy status to other drugs, medicaments and biological substances; Z91.040 Latex allergy status
CPT/HCPCS: 99284

== ENCOUNTER 2022-10-21 20:24 | Emergency (ER) | payer MEDICARE, OTHER ==
[2022-10-21] MEDS ORDERED: IBUPROFEN 600 MG STARTER PACK 4 TAB BTL PO STA (22:34)
[2022-10-21] MEDS ORDERED: DIPHENOX-ATROP STARTER PACK 8 TAB BTL PO STA (22:34)
[2022-10-21] MEDS ORDERED: ONDANSETRON 4 MG ODT STARTER PACK 2 TAB BTL PO STA (22:34)
--- NOTE | 2022-10-21 22:34 | ED ---
Abdominal Pain HPI - General Chief Complaint: Abdominal Pain Stated Complaint: Abdominal pain Time Seen by Provider: 10/21/22 22:16 Source: patient, EMS, RN notes reviewed, old records reviewed Mode of arrival: EMS Limitations: no limitations - History of Present Illness Initial Comments: This is a 52-year-old male DF for evaluation patient's well-known to emergency department patient is here for evaluation of abdominal pain today. Patient states he can no longer will with abdominal pain he states the ED admitted to a shelter to live. He can't take care of himself at home. This pain is not new, patient has no significant changes no injuries no fevers patient comes from extended-care facility [facility] and he states he no longer likes living in this intermediate. No new complaints no chest pain MD Complaint: abdominal pain -: unknown Location: diffuse Radiation: none Migration to: no migration Severity: moderate Severity scale (1-10): 4 Quality: cramping Consistency: intermittent Improves With: nothing Worsens With: nothing Associated Symptoms: nausea - Related Data Home Medications Medication Instructions Recorded Confirmed Tamsulosin [Flomax] 0.4 mg PO HS@199904/12/20 10/14/22 Aspirin EC [Ecotrin Low Dose] 81 mg PO DAILY@0800 07/09/20 10/14/22 amLODIPine [Norvasc] 10 mg PO DAILY@0800 04/10/21 10/14/22 Atorvastatin [Lipitor] 10 mg PO HS@199901/19/22 10/14/22 Cetirizine HCl [Zyrtec] 10 mg PO DAILY@1700 01/19/22 10/14/22 Omeprazole [PriLOSEC] 20 mg PO BID@0801/19/22 10/14/22 lisinopriL [Zestril] 2.5 mg PO DAILY@0800 01/19/22 10/14/22 Cyclobenzaprine [Flexeril] 5 mg PO DAILY PRN 08/18/22 10/14/22 Ergocalciferol (Vitamin D2) 1,250 mcg PO FR 08/18/22 10/14/22 [Drisdol (50,000 Iu)] Meloxicam [Mobic] 7.5 mg PO DAILY@0800 08/18/22 10/14/22 ARIPiprazole [Abilify] 15 mg PO DAILY@0800 10/11/22 10/14/22 metFORMIN HCL ER [Glucophage XR] 500 mg PO BID 10/11/22 10/14/22 Previous Rx's Medication Instructions Recorded Melatonin 5 mg PO HS 30 Days #30 tab 08/24/22 Mirtazapine [Remeron] 15 mg PO HS 30 Days #30 tab 08/24/22 Ibuprofen [Motrin] 800 mg PO Q6HR #30 tab 10/13/22 Ondansetron Odt [Zofran Odt] 4 mg PO Q8HR PRN #10 tab 10/13/22 Allergies Allergy/AdvReac Type Severity Reaction Status Date / Time dicyclomine HCl [From Bentyl] Allergy Unknown Dyspnea Verified 10/21/22 21:37 latex Allergy Unknown Rash/Hives Verified 10/21/22 21:37 adhesive AdvReac Unknown Itching Verified 10/21/22 21:37 ciprofloxacin AdvReac Unknown Nausea Verified 10/21/22 21:37 Macrolide Antibiotics AdvReac Unknown Nausea Verified 10/21/22 21:37 sulfamethoxazole AdvReac Unknown Unknown Verified 10/21/22 21:37 [From Bactrim] trimethoprim [From Bactrim] AdvReac Unknown Unknown Verified 10/21/22 21:37 Review of Systems ROS Statement: Those systems with pertinent positive or pertinent negative responses have been documented in the HPI. ROS Other: All systems not noted in ROS Statement are negative. Past Medical History Past Medical History: Asthma, Chest Pain / Angina, COPD, CVA/TIA, Diabetes Mellitus, GERD/Reflux, Hearing Disorder / Deafness, Hyperlipidemia, Hypertension, Liver Disease, Osteoarthritis (OA), Pneumonia, Seizure Disorder, Sleep Apnea/CPAP/BIPAP Additional Past Medical History / Comment(s): states CVA at 35 yrs old, no weakness @ this time. states seizure at 35 yrs old., DDD- back & neck pain., carpal tunnel syndrome., hx. of cyst on kidney, uses cpap., states having abdominal pain with diarrhea and nausea ., Lives in a intermediate with 2 other people. Has a caregiver.n Has [employer] public guardian. History of Any Multi-Drug Resistant Organisms: None Reported Past Surgical History: Heart Catheterization, Orthopedic Surgery Additional Past Surgical History / Comment(s): Cysts removed, left thumb surgery, colonoscopy 08/24/2019. Skin tags removed from both eyes. Past Anesthesia/Blood Transfusion Reactions: Motion Sickness, Postoperative Nausea & Vomiting (PONV) Past Psychological History: Anxiety, Bipolar, Depression, Schizophrenia Smoking Status: Current every day smoker Past Alcohol Use History: None Reported Past Drug Use History: None Reported - Past Family History Brother(s) Family Medical History: Diabetes Mellitus Additional Family Medical History / Comment(s): Patient has 2 brothers. One from complications from diabetes. The second is alive with diabetes. Sister(s) Family Medical History: Cancer Additional Family Medical History / Comment(s): Patient has one sister with breast cancer. Patient does not have any children. Father Family Medical History: Cancer Additional Family Medical History / Comment(s): Father in his 40s or 50s from colon cancer. Mother Family Medical History: Cancer Additional Family Medical History / Comment(s): Mother at age 68 from lung cancer. General Exam Limitations: no limitations General appearance: alert, in no apparent distress Head exam: Present: atraumatic, normocephalic, normal inspection Eye exam: Present: normal appearance, PERRL, EOMI. Absent: scleral icterus, conjunctival injection, periorbital swelling ENT exam: Present: normal exam, mucous membranes moist Neck exam: Present: normal inspection. Absent: tenderness, meningismus, lymphadenopathy Respiratory exam: Present: normal lung sounds bilaterally. Absent: respiratory distress, wheezes, rales, rhonchi, stridor Cardiovascular Exam: Present: regular rate, normal rhythm, normal heart sounds. Absent: systolic murmur, diastolic murmur, rubs, gallop, clicks GI/Abdominal exam: Present: soft, normal bowel sounds. Absent: distended, tenderness, guarding, rebound, rigid Extremities exam: Present: normal inspection, full ROM, normal capillary refill. Absent: tenderness, pedal edema, joint swelling, calf tenderness Back exam: Present: normal inspection Neurological exam: Present: alert, oriented X3, CN II-XII intact Psychiatric exam: Present: normal affect, normal mood Skin exam: Present: warm, dry, intact, normal color. Absent: rash Course Vital Signs 10/21/22 10/21/22 21:34 23:03 Temperature 98.2 F 98.1 F Pulse Rate 79 68 Respiratory 20 18 Rate Blood Pressure 127/77 118/65 O2 Sat by Pulse 97 99 Oximetry - Reevaluation(s) Reevaluation #1: 10/21/22 23:08 Medical record is reviewed Reevaluation #2: 10/21/22 23:08 Patient symptoms are improved here in the ER Reevaluation #3: 10/21/22 23:08 Patient informed results questions answered patient is agreeable for discharge Reevaluation #4: 10/21/22 23:08 Was pt. sent in by a medical professional or institution? @ -no Did you speak to anyone other than the patient for history? @ -no Did you review nursing and triage notes? @ -agree Were old charts reviewed? @ - Differential Diagnosis? @ -chest pain, arrhythmia EKG interpreted by me (3pts min.)? @ -no X-rays interpreted by me (1pt min.)? @ -no CT interpreted by me (1pt min.)? @ -no U/S interpreted by me (1pt. min.)? @ -no What testing was considered but not performed? (CT, X-rays, U/S, labs)? Why? @ -no What meds were considered but not given? Why? @ -no Did you discuss the management of the patient with other professionals? @ -no Did you reconcile home meds? @ -no Was smoking cessation discussed for >3mins.? @ -no Was critical care preformed (if so, how long)? @ -no Were there social determinants of health that impacted care today? How? (Homelessness, low income, unemployed, alcoholism, drug addiction, transportation, low edu. Level, literacy, decrease access to med. care, [facility], rehab)? @ -no Was there de-escalation of care discussed even if they declined? (Discuss DNR or withdrawal of care, Hospice)? @ -no What co-morbidities impacted this encounter? (DM, HTN, Smoking, COPD, CAD, Cancer, CVA, Hep., AIDS, mental health diagnosis, sleep apnea, morbid obesity)? @ -no Was patient admitted / discharged? @ -dc Undiagnosed new problem with uncertain prognosis? @ -no Drug Therapy requiring intensive monitoring for toxicity (Heparin, Nitro, Insulin, Cardizem)? @ -no Were any procedures done? @ -no Diagnosis/symptom? @ -adbominal pain Acute, or Chronic, or Acute on Chronic? @ -an Uncomplicated (without systemic symptoms) or Complicated (systemic symptoms)? @ -uncomplicated Side effects of treatment? @ -no Exacerbation, Progression, or Severe Exacerbation] @ -exacerbation Poses a threat to life or bodily function? @ -no Reevaluation #5: 10/21/22 23:08 Differential Abdominal Pain Men: Appendicitis, cholecystitis, diverticulosis, ischemic bowel, pancreatitis, hepatitis, UTI, gastroenteritis, AAA, incarcerated hernia, bowel obstruction, constipation, inflammatory bowel, hepatitis, peptic ulcer disease, splenic infarction, perforated viscus, testicular torsion, this is not meant to be an all-inclusive list Medical Decision Making - Medical Decision Making 52 male to the ER for evaluation of abdominal pain, patient states he can't take care of himself wants placement to shelter, he is informed regarding her from today he will set up for taking some diarrheal medications and can be discharged home Disposition Clinical Impression: Abdominal pain Disposition: HOME SELF-CARE Condition: Good Instructions (If sedation given, give patient instructions): Abdominal Pain (ED) Is patient prescribed a controlled substance at d/c from ED?: No Referrals: None,Stated [REFERRING] - 1-2 days Time of Disposition: 22:30
[2022-10-21 23:06] VITALS: BP 118/65; PULSE 68; RESP 18; TEMP 98.1
== END 2022-10-21 23:06 | disposition home or self-care (01) ==
LOC: EC 20:24
DX: R10.9 Unspecified abdominal pain (principal); J44.9 Chronic obstructive pulmonary disease, unspecified; E11.9 Type 2 diabetes mellitus without complications; I10 Essential (primary) hypertension; G47.30 Sleep apnea, unspecified; F41.9 Anxiety disorder, unspecified; F31.9 Bipolar disorder, unspecified; F17.200 Nicotine dependence, unspecified, uncomplicated; K21.9 Gastro-esophageal reflux disease without esophagitis; E78.5 Hyperlipidemia, unspecified; M19.90 Unspecified osteoarthritis, unspecified site; Z86.73 Personal history of transient ischemic attack (TIA), and cerebral infarction without residual deficits; Z79.84 Long term (current) use of oral hypoglycemic drugs; Z79.1 Long term (current) use of non-steroidal anti-inflammatories (NSAID); Z79.82 Long term (current) use of aspirin; Z79.899 Other long term (current) drug therapy; Z91.09 Other allergy status, other than to drugs and biological substances; Z91.040 Latex allergy status; Z88.6 Allergy status to analgesic agent; Z88.2 Allergy status to sulfonamides; Z88.8 Allergy status to other drugs, medicaments and biological substances; Z88.1 Allergy status to other antibiotic agents
CPT/HCPCS: 99284 ×2; S0119

== ENCOUNTER 2022-10-24 13:59 | Emergency (ER) | payer MEDICARE, OTHER ==
[2022-10-24] MEDS ORDERED: METOCLOPRAMIDE 5 MG/ML 2 ML VIAL IVP STA (14:26)
[2022-10-24] MEDS ORDERED: SODIUM CHLORIDE 0.9% 1,000 ML IV STA (14:26)
[2022-10-24] MEDS ORDERED: MECLIZINE 12.5 MG TAB PO STA (14:26)
--- NOTE | 2022-10-24 14:36 | ED ---
Dizziness HPI - General Chief Complaint: Dizziness Stated Complaint: CHRONIC DIZZINESS Time Seen by Provider: 10/24/22 14:13 Source: patient, RN notes reviewed Mode of arrival: ambulatory Limitations: no limitations - History of Present Illness Initial Comments: This is a 52-year-old male who presents to the emergency department for dizziness. Patient states that this has been going on for approximately one month. This is exacerbated by movement and anytime he changes positions. Reports associated nausea/vomiting. Also describes this as a room spinning sensation. He has had similar problems in the past. Denies any chest pain or shortness of breath. He is not experiencing any weakness or lightheadedness. He requests a prescription for a walker as a result of weakness following a CVA several years ago. He is currently using a cane, which is not effective, and he feels like he is going to fall. Denies any fevers, chills, sore throat, cough, dyspnea, chest pain, palpitations, abdominal pain, nausea, vomiting, diarrhea, back pain, or headaches. MD Complaint: dizziness Onset/Timin -: month(s) Description: "room spinning", nausea Improves With: remaining still Worsens With: movement - Related Data Home Medications Medication Instructions Recorded Confirmed RX: Tamsulosin [Flomax] 0.4 mg PO HS@199904/12/20 10/14/22 RX: Aspirin EC [Ecotrin Low Dose] 81 mg PO DAILY@0800 07/09/20 10/14/22 RX: amLODIPine [Norvasc] 10 mg PO DAILY@0800 04/10/21 10/14/22 RX: Atorvastatin [Lipitor] 10 mg PO HS@199901/19/22 10/14/22 RX: Cetirizine HCl [Zyrtec] 10 mg PO DAILY@1700 01/19/22 10/14/22 RX: Omeprazole [PriLOSEC] 20 mg PO BID@0801/19/22 10/14/22 RX: lisinopriL [Zestril] 2.5 mg PO DAILY@0800 01/19/22 10/14/22 RX: Cyclobenzaprine [Flexeril] 5 mg PO DAILY PRN 08/18/22 10/14/22 RX: Ergocalciferol (Vitamin D2) 1,250 mcg PO FR 08/18/22 10/14/22 [Drisdol (50,000 Iu)] RX: Meloxicam [Mobic] 7.5 mg PO DAILY@0800 08/18/22 10/14/22 ARIPiprazole [Abilify] 15 mg PO DAILY@0800 10/11/22 10/14/22 metFORMIN HCL ER [Glucophage XR] 500 mg PO BID 10/11/22 10/14/22 Previous Rx's Medication Instructions Recorded RX: Melatonin 5 mg PO HS 30 Days #30 tab 08/24/22 RX: Mirtazapine [Remeron] 15 mg PO HS 30 Days #30 tab 08/24/22 Ondansetron Odt [Zofran Odt] 4 mg PO Q8HR PRN #10 tab 10/13/22 RX: Ibuprofen [Motrin] 800 mg PO Q6HR #30 tab 10/13/22 Metoclopramide [Reglan] 10 mg PO Q6H PRN #20 tab 10/24/22 RX: Meclizine [Antivert] 25 mg PO TID PRN #20 tab 10/24/22 Allergies Allergy/AdvReac Type Severity Reaction Status Date / Time dicyclomine HCl [From Bentyl] Allergy Unknown Dyspnea Verified 10/24/22 14:07 latex Allergy Unknown Rash/Hives Verified 10/24/22 14:07 adhesive AdvReac Unknown Itching Verified 10/24/22 14:07 ciprofloxacin AdvReac Unknown Nausea Verified 10/24/22 14:07 Macrolide Antibiotics AdvReac Unknown Nausea Verified 10/24/22 14:07 sulfamethoxazole AdvReac Unknown Unknown Verified 10/24/22 14:07 [From Bactrim] trimethoprim [From Bactrim] AdvReac Unknown Unknown Verified 10/24/22 14:07 Review of Systems ROS Statement: Those systems with pertinent positive or pertinent negative responses have been documented in the HPI. ROS Other: All systems not noted in ROS Statement are negative. Past Medical History Past Medical History: Asthma, Chest Pain / Angina, COPD, CVA/TIA, Diabetes Mellitus, GERD/Reflux, Hearing Disorder / Deafness, Hyperlipidemia, Hypertension, Liver Disease, Osteoarthritis (OA), Pneumonia, Seizure Disorder, Sleep Apnea/CPAP/BIPAP Additional Past Medical History / Comment(s): states CVA at 35 yrs old, no weakness @ this time. states seizure at 35 yrs old., DDD- back & neck pain., carpal tunnel syndrome., hx. of cyst on kidney, uses cpap., states having abdominal pain with diarrhea and nausea ., Lives in a nursing home with 2 other people. Has a caregiver.n Has [employer] public guardian. History of Any Multi-Drug Resistant Organisms: None Reported Past Surgical History: Heart Catheterization, Orthopedic Surgery Additional Past Surgical History / Comment(s): Cysts removed, left thumb surgery, colonoscopy 08/24/2019. Skin tags removed from both eyes. Past Anesthesia/Blood Transfusion Reactions: Motion Sickness, Postoperative Jovan sea & Vomiting (PONV) Past Psychological History: Anxiety, Bipolar, Depression, Schizophrenia Smoking Status: Current every day smoker Past Alcohol Use History: None Reported Past Drug Use History: None Reported - Past Family History Brother(s) Family Medical History: Diabetes Mellitus Additional Family Medical History / Comment(s): Patient has 2 brothers. One from complications from diabetes. The second is alive with diabetes. Sister(s) Family Medical History: Cancer Additional Family Medical History / Comment(s): Patient has one sister with breast cancer. Patient does not have any children. Father Family Medical History: Cancer Additional Family Medical History / Comment(s): Father in his 40s or 50s from colon cancer. Mother Family Medical History: Cancer Additional Family Medical History / Comment(s): Mother at age 68 from lung cancer. General Exam Limitations: no limitations General appearance: alert, in no apparent distress Head exam: Present: atraumatic, normocephalic, normal inspection Eye exam: Present: normal appearance, PERRL, EOMI. Absent: scleral icterus, conjunctival injection, periorbital swelling Respiratory exam: Present: normal lung sounds bilaterally. Absent: respiratory distress, wheezes, rales, rhonchi, stridor Cardiovascular Exam: Present: regular rate, normal rhythm, normal heart sounds. Absent: systolic murmur, diastolic murmur, rubs, gallop, clicks Neurological exam: Present: alert, oriented X3, CN II-XII intact Psychiatric exam: Present: normal affect, normal mood Skin exam: Present: warm, dry, intact, normal color. Absent: rash Course Vital Signs 10/24/22 10/24/22 14:04 17:48 Temperature 98.4 F 98.1 F Pulse Rate 68 72 Respiratory 20 18 Rate Blood Pressure 142/83 138/67 O2 Sat by Pulse 99 99 Oximetry Medical Decision Making - Medical Decision Making This is a 52-year-old male who presents to the emergency department for dizziness. Was pt. sent in by a medical professional or institution? @ -No Did you speak to anyone other than the patient for history? @ -No Did you review nursing and triage notes? @ -Yes, and I agree, it is accurate with regards to the patient's symptoms. Were old charts reviewed? @ -No Differential Diagnosis? @ -Differential Dizziness: Benign paroxysmal positional Vertigo, Menieres disease, otitis media, acoustic neuroma, vertebrobasilar insufficiency, cerebellar stroke, encephalitis, hypovolemic, arrhythmia, coronary artery syndrome, anemia, this is not meant to be an all-inclusive list EKG interpreted by me (3pts min.)? @ -Sinus rhythm. Ventricular rate 66 bpm, VT interval 163 ms, QRS duration 109 ms, QTC [address] interpreted by me (1pt min.)? @ -Computed tomography scan of the brain and CTA of the head and neck obtained. My interpretation identifies no acute ischemic changes, evidence of an ane urysm, or intracranial hemorrhage. What testing was considered but not performed? (CT, X-rays, U/S, labs)? Why? @ -None What meds were considered but not given? Why? @ -None Did you discuss the management of the patient with other professionals? @ -No Did you reconcile home meds? @ -No Was smoking cessation discussed for >3mins.? @ -No Was critical care preformed (if so, how long)? @ -No Were there social determinants of health that impacted care today? How? (Homelessness, low income, unemployed, alcoholism, drug addiction, transportation, low edu. Level, literacy, decrease access to med. care, penitentiary, rehab)? @ -No Was there de-escalation of care discussed even if they declined? (Discuss DNR or withdrawal of care, Hospice)? @ -No What co-morbidities impacted this encounter? (DM, HTN, Smoking, COPD, CAD, Cancer, CVA, Hep., AIDS, mental health diagnosis, sleep apnea, morbid obesity)? @ -Asthma, COPD, hx of CVA, DM, GERD, HTN, HLD Was patient admitted / discharged? @ -Discharged. Lab work obtained and found to be nonactionable. He was initially given IV fluids, Reglan, and Antivert, with no relief in symptoms. He was then given Zofran and Valium, and felt much better. He was able to eat a sandwich without difficulty. Given his history of stroke and persistent symptoms, computed tomography scan of the brain and CTA of the head and neck were obtained. Imaging revealed no acute findings. Patient was able to ambulate prior to discharge. I did give him a prescription for a walker per his request. Advised that he can take this to a medical supply store. Discussed that I'm not entirely sure if this will be accepted, and if not, he'll need to request this from his primary care provider or purchase one over the counter. Symptoms most likely related to BPPV. Prescription for Reglan and Antivert provided with dosing instructions reviewed. Also advised he look up the half somersault maneuver by Dr. Niecy Hamilton on YouTube for additional treatment options. Undiagnosed new problem with uncertain prognosis? @ -None Drug Therapy requiring intensive monitoring for toxicity (Heparin, Nitro, Insulin, Cardizem)? @ -None Were any procedures done? @ -None Diagnosis/symptom? @ -BPPV Acute, or Chronic, or Acute on Chronic? @ -Chronic Uncomplicated (without systemic symptoms) or Complicated (systemic symptoms)? @ -Uncomplicated Side effects of treatment? @ -None Exacerbation, Progression, or Severe Exacerbation] @ -Not applicable Poses a threat to life or bodily function? @ -No Return precautions reviewed in depth, the patient is instructed to return to the emergency department with any new, worsening, or concerning symptoms. Patient verbalized understanding. This case was discussed in detail with the attending ED physician, Dr. Garnett. Presentation, findings, and treatment plan discussed in detail as well. - Lab Data Result diagrams: 10/24/22 15:08 10/24/22 15:08 Lab Results 10/24/22 10/24/22 10/24/22 Range/Units 15:08 15:08 15:08 WBC 6.7 (3.8-10.6) k/uL RBC 5.50 (4.30-5.90) m/uL Hgb 16.9 (13.0-17.5) gm/dL Hct 47.1 (39.0-53.0) % MCV 85.6 (80.0-100.0) fL MCH 30.7 (25.0-35.0) pg MCHC 35.9 (31.0-37.0) g/dL RDW 13.3 (11.5-15.5) % Plt Count 190 (150-450) k/uL MPV 7.8 Neutrophils % 67 % Lymphocytes % 22 % Monocytes % 5 % Eosinophils % 4 % Basophils % 0 % Neutrophils # 4.5 (1.3-7.7) k/uL Lymphocytes # 1.5 (1.0-4.8) k/uL Monocytes # 0.3 (0-1.0) k/uL Eosinophils # 0.3 (0-0.7) k/uL Basophils # 0.0 (0-0.2) k/uL Hyperchromasia Slight PT 10.2 (9.0-12.0) sec INR 1.0 (<1.2) Sodium (137-145) mmol/L Potassium (3.5-5.1) mmol/L Chloride (98-107) mmol/L Carbon Dioxide (22-30) mmol/L Anion Gap mmol/L BUN (9-20) mg/dL Creatinine (0.66-1.25) mg/dL Est GFR (CKD-EPI)AfAm (>60 ml/min/1.73 sqM) Est GFR (CKD-EPI)NonAf (>60 ml/min/1.73 sqM) Glucose (74-99) mg/dL Plasma Lactic Acid Hunter (0.7-2.0) mmol/L Calcium (8.4-10.2) mg/dL Total Bilirubin (0.2-1.3) mg/dL AST (17-59) U/L ALT (4-49) U/L Alkaline Phosphatase (38-126) U/L Troponin I (0.000-0.034) ng/mL Total Protein (6.3-8.2) g/dL Albumin (3.5-5.0) g/dL Urine Color Light Yellow Urine Appearance Clear (Clear) Urine pH 5.5 (5.0-8.0) Ur Specific Camilla 1.005 (1.001-1.035) Urine Protein Negative (Negative) Urine Glucose (UA) Negative (Negative) Urine Ketones Negative (Negative) Urine Blood Negative (Negative) Urine Nitrite Negative (Negative) Urine Bilirubin Negative (Negative) Urine Urobilinogen <2.0 (<2.0) mg/dL Ur Leukocyte Esterase Negative (Negative) Urine Opiates Screen Not Detected (NotDetected) Ur Oxycodone Screen Not Detected (NotDetected) Urine Methadone Screen Not Detected (NotDetected) Ur Propoxyphene Screen Not Detected (NotDetected) Ur Barbiturates Screen Not Detected (NotDetected) U Tricyclic Antidepress Not Detected (NotDetected) Ur Phencyclidine Scrn Not Detected (NotDetected) Ur Amphetamines Screen Not Detected (NotDetected) U Methamphetamines Scrn Not Detected (NotDetected) U Benzodiazepines Scrn Not Detected (NotDetected) Urine Cocaine Screen Not Detected (NotDetected) U Marijuana (THC) Screen Not Detected (NotDetected) 10/24/22 10/24/22 10/24/22 Range/Units 15:08 15:08 15:08 WBC (3.8-10.6) k/uL RBC (4.30-5.90) m/uL Hgb (13.0-17.5) gm/dL Hct (39.0-53.0) % MCV (80.0-100.0) fL MCH (25.0-35.0) pg MCHC (31.0-37.0) g/dL RDW (11.5-15.5) % Plt Count (150-450) k/uL MPV Neutrophils % % Lymphocytes % % Monocytes % % Eosinophils % % Basophils % % Neutrophils # (1.3-7.7) k/uL Lymphocytes # (1.0-4.8) k/uL Monocytes # (0-1.0) k/uL Eosinophils # (0-0.7) k/uL Basophils # (0-0.2) k/uL Hyperchromasia PT (9.0-12.0) sec INR (<1.2) Sodium 141 (137-145) mmol/L Potassium 4.2 (3.5-5.1) mmol/L Chloride 110 H (98-107) mmol/L Carbon Dioxide 22 (22-30) mmol/L Anion Gap 9 mmol/L BUN 10 (9-20) mg/dL Creatinine 0.62 L (0.66-1.25) mg/dL Est GFR (CKD-EPI)AfAm >90 (>60 ml/min/1.73 sqM) Est GFR (CKD-EPI)NonAf >90 (>60 ml/min/1.73 sqM) Glucose 104 H (74-99) mg/dL Plasma Lactic Acid Hunter 1.0 (0.7-2.0) mmol/L Calcium 9.4 (8.4-10.2) mg/dL Total Bilirubin 0.6 (0.2-1.3) mg/dL AST 36 (17-59) U/L ALT 44 (4-49) U/L Alkaline Phosphatase 54 (38-126) U/L Troponin I 0.017 (0.000-0.034) ng/mL Total Protein 7.0 (6.3-8.2) g/dL Albumin 4.5 (3.5-5.0) g/dL Urine Color Urine Appearance (Clear) Urine pH (5.0-8.0) Ur Specific Camilla (1.001-1.035) Urine Protein (Negative) Urine Glucose (UA) (Negative) Urine Ketones (Negative) Urine Blood (Negative) Urine Nitrite (Negative) Urine Bilirubin (Negative) Urine Urobilinogen (<2.0) mg/dL Ur Leukocyte Esterase (Negative) Urine Opiates Screen (NotDetected) Ur Oxycodone Screen (NotDetected) Urine Methadone Screen (NotDetected) Ur Propoxyphene Screen (NotDetected) Ur Barbiturates Screen (NotDetected) U Tricyclic Antidepress (NotDetected) Ur Phencyclidine Scrn (NotDetected) Ur Amphetamines Screen (NotDetected) U Methamphetamines Scrn (NotDetected) U Benzodiazepines Scrn (NotDetected) Urine Cocaine Screen (NotDetected) U Marijuana (THC) Screen (NotDetected) - Radiology Data Radiology results: report reviewed, image reviewed Disposition Clinical Impression: BPPV (benign paroxysmal positional vertigo), Weakness due to old stroke Disposition: HOME SELF-CARE Instructions (If sedation given, give patient instructions): Vertigo (ED), Benign Paroxysmal Positional Vertigo (ED) Additional Instructions: Return to the emergency department with any new, worsening, or concerning symptoms. You can try taking the Reglan and Antivert for your symptoms of dizziness. You can also look up the half somersault maneuver by Dr. Niecy Hamilton on YouTube as another treatment option. Follow up with your primary care provider in 1-2 days. Prescriptions: RX: Meclizine [Antivert] 25 mg PO TID PRN #20 tab PRN Reason: Vertigo Metoclopramide [Reglan] 10 mg PO Q6H PRN #20 tab PRN Reason: Nausea And Vomiting Is patient prescribed a controlled substance at d/c from ED?: No Referrals: Ramya Saul MD [Primary Care Provider] - 1-2 days
[2022-10-24 15:35] LABS: Prothrombin Time 10.2 sec (9.0-12.0)
[2022-10-24 15:39] LABS: Appearance,Urine Clear (Clear); Bilirubin,Urine Negative (Negative); Blood,Urine Negative (Negative); Color,Urine Light Yellow; Glucose,Urine (UA) Negative (Negative); Ketones,Urine Negative (Negative); Leukocyte Esterase,Urine Negative (Negative); Nitrite,Urine Negative (Negative); PH, Urine 5.5 (5.0-8.0); Protein,Urine Negative (Negative); Specific Gravity,Urine 1.005 (1.001-1.035); Urobilinogen,Urine <2.0 mg/dL (<2.0)
[2022-10-24 15:43] LABS: ALT 44 U/L (4-49); African American GFR (CKD) >90 (>60 ml/min/1.73 sqM); Albumin 4.5 g/dL (3.5-5.0); Anion Gap 9 mmol/L; Blood Urea Nitrogen 10 mg/dL (9-20); Calcium 9.4 mg/dL (8.4-10.2); Carbon Dioxide 22 mmol/L (22-30); Chloride 110 mmol/L (98-107); Glucose 104 mg/dL (74-99); Non-African American GFR(CKD) >90 (>60 ml/min/1.73 sqM); Potassium 4.2 mmol/L (3.5-5.1); Sodium 141 mmol/L (137-145); Total Bilirubin 0.6 mg/dL (0.2-1.3)
[2022-10-24 15:44] LABS: AST 36 U/L (17-59); Alkaline Phosphatase 54 U/L (38-126)
[2022-10-24 15:51] LABS: Amphetamine Screen,Urine Not Detected (NotDetected); Barbiturate Screen,Urine Not Detected (NotDetected); Benzodiazepines Screen,Urine Not Detected (NotDetected); Cocaine Screen,Urine Not Detected (NotDetected); Methadone Screen, Urine Not Detected (NotDetected); Opiate Screen,Urine Not Detected (NotDetected); Oxycodone Screen, Urine Not Detected (NotDetected); Phencyclidine Screen,Urine Not Detected (NotDetected); Tricyclic Antidepressant,Urine Not Detected (NotDetected); Urn Cannabinoid Scrn Not Detected (NotDetected)
[2022-10-24] MEDS ORDERED: ONDANSETRON 4 MG/2 ML VIAL IVP STA (16:10)
[2022-10-24 16:23] LABS: Basophils % (A) 0 %; Eosinophils # (A) 0.3 k/uL (0-0.7); Eosinophils % (A) 4 %; HCT 47.1 % (39.0-53.0); HGB 16.9 gm/dL (13.0-17.5); Hyperchromasia Slight; Lymphocytes # (A) 1.5 k/uL (1.0-4.8); Lymphocytes % (A) 22 %; MCH 30.7 pg (25.0-35.0); MCHC 35.9 g/dL (31.0-37.0); MCV 85.6 fL (80.0-100.0); Mean Platelet Volume 7.8; Monocytes # (A) 0.3 k/uL (0-1.0); Monocytes % (A) 5 %; Neutrophils # (A) 4.5 k/uL (1.3-7.7); Neutrophils % (A) 67 %; Platelet Count 190 k/uL (150-450); RDW 13.3 % (11.5-15.5); WBC 6.7 k/uL (3.8-10.6)
--- NOTE | 2022-10-24 16:48 | CT ---
EXAMINATION TYPE: CT brain wo con CT DLP: 1153.6 mGycm, Automated exposure control for dose reduction was used. DATE OF EXAM: 10/24/2022 4:43 PM COMPARISON: 05/31/2013. CLINICAL INDICATION:Male, 52 years old with history of Dizziness, hx of CVA, DIZZINESS. HX OF STROKE TECHNIQUE: Brain: Axial CT images of the brain were obtained with coronal and sagittal reformats created and rev iewed. Contrast used: None. Oral contrast used: None. FINDINGS: Brain: Extra-axial spaces: No abnormal extra-axial fluid collections. Ventricular system: Within normal limits Cerebral parenchyma: No acute intraparenchymal hemorrhage or mass effect. The persaud-white junction is well differentiated. Cerebellum: Unremarkable. Mass effect: No evidence of midline shift. Intracranial vasculature: Atherosclerotic calcifications of the intracranial vessels. Soft tissues: Normal. Calvarium/osseous structures: No depressed skull fracture. Paranasal sinuses and mastoid air cells: Mild scattered paranasal sinus disease. Visualized orbits: Orbital contents are intact. IMPRESSION: No acute intracranial process.
--- NOTE | 2022-10-24 17:18 | CT ---
EXAMINATION TYPE: CT angio head neck CT DLP: 565 mGycm, Automated exposure control for dose reduction was used. DATE OF EXAM: 10/24/2022 4:57 PM COMPARISON: 10/24/2022 CLINICAL INDICATION:Male, 52 years old with history of Dizziness, hx of CVA; TECHNIQUE: Axially acquired helical CT angiogram of the head and neck was obtained with contrast. Axi al images are supplemented with 3D reconstructions which [facility] NASCET criteria used. Contrast used: 100 cc of Isovue 300 Oral contrast used: None. FINDINGS: CTA HEAD: No evidence of acute intracranial hemorrhage, mass effect, or midline shift. The ventricles, sulci, a nd cisterns are unremarkable. The visualized portions of the internal carotid arteries, middle cerebral arteries, anterior cerebral arteries, and posterior cerebral arteries are patent. The basilar and vertebral arteries are patent. CTA NECK: Right Carotid System: The common carotid artery and external carotid artery are patent. The carotid bifurcation demonstrate s no evidence of hemodynamically significant stenosis. The remaining portions of the internal carotid artery demonstrate normal size without significant narrowing. Left Carotid System: The common carotid artery and external carotid artery are patent. The carotid bifurcation demonstrate s no evidence of hemodynamically significant stenosis. The remaining portions of the internal carotid artery demonstrate normal size without significant narrowing. Vertebral arteries are patent without evidence hemodynamically significant stenosis. There is a three-vessel aortic arch. The origins of the great vessels are patent. No evidence of hemo dynamically significant stenosis. IMPRESSION: 1. No evidence of dissection of the cervical internal carotid arteries or vertebral arteries or any e vidence of significant stenosis at the carotid bifurcations. 2. No evidence of intracranial high-grade stenosis or intracranial aneurysm.
[2022-10-24] MEDS ORDERED: ONDANSETRON 4 MG ODT STARTER PACK 2 TAB BTL PO STA (17:27)
[2022-10-24 17:49] VITALS: BP 138/67; PULSE 72; RESP 18; TEMP 98.1
== END 2022-10-24 17:50 | disposition home or self-care (01) ==
LOC: EC 13:59
DX: H81.10 Benign paroxysmal vertigo, unspecified ear (principal); R53.1 Weakness; E11.9 Type 2 diabetes mellitus without complications; I10 Essential (primary) hypertension; J44.9 Chronic obstructive pulmonary disease, unspecified; E78.5 Hyperlipidemia, unspecified; K21.9 Gastro-esophageal reflux disease without esophagitis; F31.9 Bipolar disorder, unspecified; F41.9 Anxiety disorder, unspecified; M19.90 Unspecified osteoarthritis, unspecified site; Z79.82 Long term (current) use of aspirin; Z79.84 Long term (current) use of oral hypoglycemic drugs; Z79.899 Other long term (current) drug therapy; Z88.1 Allergy status to other antibiotic agents; Z88.2 Allergy status to sulfonamides; Z88.8 Allergy status to other drugs, medicaments and biological substances; Z91.040 Latex allergy status; Z91.048 Other nonmedicinal substance allergy status; Z86.73 Personal history of transient ischemic attack (TIA), and cerebral infarction without residual deficits; F17.200 Nicotine dependence, unspecified, uncomplicated
CPT/HCPCS: 36415; 93005; 80053; 83605; 84484; 85025; 85610; 81003; 80306; 70496; 70450; 70498; 99284; 96374; 96375 ×2; 96361; J2765; J3360; J2405; S0119; Q9967

== ENCOUNTER 2022-12-07 23:15 | Emergency (ER) | payer MEDICARE, OTHER ==
[2022-12-07 23:27] VITALS: BP 117/63; PULSE 82; RESP 16; TEMP 98.2
[2022-12-07] MEDS ORDERED: ONDANSETRON 4 MG ODT STARTER PACK 2 TAB BTL PO STA (23:33)
[2022-12-07] MEDS ORDERED: traMADol 50 MG STARTER PACK 3 TAB BTL PO STA (23:33)
--- NOTE | 2022-12-07 23:35 | ED ---
General Adult HPI - General Chief complaint: Extremity Problem,Nontraumatic Stated complaint: Pain all over, Time Seen by Provider: 12/07/22 23:28 Source: patient, EMS, RN notes reviewed Mode of arrival: EMS Limitations: no limitations - History of Present Illness Initial comments: 52-year-old male presents emergency Department with chief complaint of pain. This is a chronic issue he has no new acute injuries. States he has neck pain without fall denies any focal weakness occasionally has pain areas on his right arm no chest pain or shortness breath no fevers or chills states she has a poor appetite. Patient is scheduled follow-up with his PCP. - Related Data Home Medications Medication Instructions Recorded Confirmed Tamsulosin [Flomax] 0.4 mg PO HS@199904/12/20 10/14/22 Aspirin EC [Ecotrin Low Dose] 81 mg PO DAILY@0800 07/09/20 10/14/22 amLODIPine [Norvasc] 10 mg PO DAILY@0800 04/10/21 10/14/22 Atorvastatin [Lipitor] 10 mg PO HS@199901/19/22 10/14/22 Cetirizine HCl [Zyrtec] 10 mg PO DAILY@1700 01/19/22 10/14/22 Omeprazole [PriLOSEC] 20 mg PO BID@08,199901/19/22 10/14/22 lisinopriL [Zestril] 2.5 mg PO DAILY@0800 01/19/22 10/14/22 Cyclobenzaprine [Flexeril] 5 mg PO DAILY PRN 08/18/22 10/14/22 Ergocalciferol (Vitamin D2) 1,250 mcg PO FR 08/18/22 10/14/22 [Drisdol (50,000 Iu)] Meloxicam [Mobic] 7.5 mg PO DAILY@0800 08/18/22 10/14/22 ARIPiprazole [Abilify] 15 mg PO DAILY@0810/11/22 10/14/22 metFORMIN HCL ER [Glucophage XR] 500 mg PO BID 10/11/22 10/14/22 Previous Rx's Medication Instructions Recorded Melatonin 5 mg PO HS 30 Days #30 tab 08/24/22 Mirtazapine [Remeron] 15 mg PO HS 30 Days #30 tab 08/24/22 Ibuprofen [Motrin] 800 mg PO Q6HR #30 tab 10/13/22 Ondansetron Odt [Zofran Odt] 4 mg PO Q8HR PRN #10 tab 10/13/22 Meclizine [Antivert] 25 mg PO TID PRN #20 tab 10/24/22 Metoclopramide [Reglan] 10 mg PO Q6H PRN #20 tab 10/24/22 Allergies Allergy/AdvReac Type Severity Reaction Status Date / Time dicyclomine HCl [From Bentyl] Allergy Unknown Dyspnea Verified 12/07/22 23:27 latex Allergy Unknown Rash/Hives Verified 12/07/22 23:27 adhesive AdvReac Unknown Itching Verified 12/07/22 23:27 ciprofloxacin AdvReac Unknown Nausea Verified 12/07/22 23:27 Macrolide Antibiotics AdvReac Unknown Nausea Verified 12/07/22 23:27 sulfamethoxazole AdvReac Unknown Unknown Verified 12/07/22 23:27 [From Bactrim] trimethoprim [From Bactrim] AdvReac Unknown Unknown Verified 12/07/22 23:27 Review of Systems ROS Statement: Those systems with pertinent positive or pertinent negative responses have been documented in the HPI. ROS Other: All systems not noted in ROS Statement are negative. Past Medical History Past Medical History: Asthma, Chest Pain / Angina, COPD, CVA/TIA, Diabetes Mellitus, GERD/Reflux, Hearing Disorder / Deafness, Hyperlipidemia, Hypertension, Liver Disease, Osteoarthritis (OA), Pneumonia, Seizure Disorder, Sleep Apnea/CPAP/BIPAP Additional Past Medical History / Comment(s): states CVA at 35 yrs old, no weakness @ this time. states seizure at 35 yrs old., DDD- back & neck pain., carpal tunnel syndrome., hx. of cyst on kidney, uses cpap., states having abdominal pain with diarrhea and nausea ., Lives in a intermediate with 2 other people. Has a caregiver.n Has [employer] public guardian. History of Any Multi-Drug Resistant Organisms: None Reported Past Surgical History: Heart Catheterization, Orthopedic Surgery Additional Past Surgical History / Comment(s): Cysts removed, left thumb surgery, colonoscopy 08/24/2019. Skin tags removed from both eyes. Past Anesthesia/Blood Transfusion Reactions: Motion Sickness, Postoperative Nausea & Vomiting (PONV) Past Psychological History: Anxiety, Bipolar, Depression, Schizophrenia Smoking Status: Current every day smoker Past Alcohol Use History: None Reported Past Drug Use History: None Reported - Past Family History Brother(s) Family Medical History: Diabetes Mellitus Additional Family Medical History / Comment(s): Patient has 2 brothers. One from complications from diabetes. The second is alive with diabetes. Sister(s) Family Medical History: Cancer Additional Family Medical History / Comment(s): Patient has one sister with breast cancer. Patient does not have any children. Father Family Medical History: Cancer Additional Family Medical History / Comment(s): Father in his 40s or 50s from colon cancer. Mother Family Medical History: Cancer Additional Family Medical History / Comment(s): Mother at age 68 from lung cancer. General Exam Limitations: no limitations General appearance: alert, in no apparent distress Head exam: Present: atraumatic, normocephalic, normal inspection Eye exam: Present: normal appearance, PERRL, EOMI. Absent: scleral icterus, conjunctival injection, periorbital swelling ENT exam: Present: normal exam, mucous membranes moist Neck exam: Present: normal inspection, full ROM. Absent: tenderness, meningismus, lymphadenopathy Respiratory exam: Present: normal lung sounds bilaterally. Absent: respiratory distress, wheezes, rales, rhonchi, stridor Cardiovascular Exam: Present: regular rate, normal rhythm, normal heart sounds. Absent: systolic murmur, diastolic murmur, rubs, gallop, clicks Course Vital Signs 12/07/22 23:21 Temperature 98.2 F Pulse Rate 82 Respiratory 16 Rate Blood Pressure 117/63 O2 Sat by Pulse 98 Oximetry Medical Decision Making - Medical Decision Making Was pt. sent in by a medical professional or institution (, PA, HAND CANDLE MOLDER, urgent care, hospital, or assisted...) When possible be specific @ -No Did you speak to anyone other than the patient for history (EMS, parent, family, police, friend...)? What history was obtained from this source @ -No Did you review nursing and triage notes (agree or disagree)? Why? @ -I reviewed and agree with nursing and triage notes Were old charts reviewed (outside hosp., previous admission, EMS record, old EKG, old radiological studies, urgent care reports/EKG's, assisted records)? Report findings @ -Reviewed prior imaging and laboratory studies Differential Diagnosis (chest pain, altered mental status, abdominal pain women, abdominal pain men, vaginal bleeding, weakness, fever, dyspnea, syncope, headache, dizziness, GI bleed, back pain, seizure, CVA, palpatations, mental health, musculoskeletal)? @ -Neck pain, neck strain, chronic pain EKG interpreted by me (3pts min.). @ -None X-rays interpreted by me (1pt min.). @ -None done CT interpreted by me (1pt min.). @ -None done U/S interpreted by me (1pt. min.). @ -None done What testing was considered but not performed or refused? (CT, X-rays, U/S, labs)? Why? @ -Considered x-ray, CT though patient had multiple images no new injury. What meds were considered but not given or refused? Why? @ -None Did you discuss the management of the patient with other professionals (professionals i.e. , PA, HAND CANDLE MOLDER, lab, RT, psych nurse, hospice social worker, preschool teacher, teacher, training officer, correctional casework specialist)? Give summary @ -No Was smoking cessation discussed for >3mins.? @ -No Was critical care preformed (if so, how long)? @ -No Were there social determinants of health that impacted care today? How? (Homelessness, low income, unemployed, alcoholism, drug addiction, transportation, low edu. Level, literacy, decrease access to med. care, correction, rehab)? @ -No Was there de-escalation of care discussed even if they declined (Discuss DNR or withdrawal of care, Hospice)? DNR status @ -No What co-morbidities impacted this encounter? (DM, HTN, Smoking, COPD, CAD, Cancer, CVA, ARF, Chemo, Hep., AIDS, mental health diagnosis, sleep apnea, morbid obesity)? @ -None Was patient admitted / discharged? Hospital course, mention meds given and route, prescriptions, significant lab abnormalities, going to OR and other pertinent info. @ -Discharge patient is chronic pain but no injuries function is well-known emergency department with no new complaints. Patient advised follow-up for his PCP. Return parameters discussed. Undiagnosed new problem with uncertain prognosis? @ -No Drug Therapy requiring intensive monitoring for toxicity (Heparin, Nitro, Insulin, Cardizem)? @ -No Were any procedures done? @ -No Diagnosis/symptom? @ -Neck pain Acute, or Chronic, or Acute on Chronic? @ -Chronic Uncomplicated (without systemic symptoms) or Complicated (systemic symptoms)? @ -Uncomplicated Side effects of treatment? @ -No Exacerbation, Progression, or Severe Exacerbation? @ -No Poses a threat to life or bodily function? How? (Chest pain, USA, NC, pneumonia, PE, COPD, DKA, ARF, appy, cholecystitis, CVA, Diverticulitis, Homicidal, Suicidal, threat to staff... and all critical care pts) @ -No Disposition Clinical Impression: Neck pain Disposition: HOME SELF-CARE Condition: Stable Instructions (If sedation given, give patient instructions): Neck Pain (ED) Additional Instructions: Please return to the Emergency Department if symptoms worsen or any other concerns. Is patient prescribed a controlled substance at d/c from ED?: No Referrals: None,Stated [REFERRING] - 1-2 days Time of Disposition: 23:35
== END 2022-12-07 23:56 | disposition home or self-care (01) ==
LOC: EC 23:15
DX: M54.2 Cervicalgia (principal); E11.9 Type 2 diabetes mellitus without complications; E78.5 Hyperlipidemia, unspecified; I10 Essential (primary) hypertension; J44.9 Chronic obstructive pulmonary disease, unspecified; K21.9 Gastro-esophageal reflux disease without esophagitis; M19.90 Unspecified osteoarthritis, unspecified site; Z86.73 Personal history of transient ischemic attack (TIA), and cerebral infarction without residual deficits; F41.9 Anxiety disorder, unspecified; F31.9 Bipolar disorder, unspecified; F17.200 Nicotine dependence, unspecified, uncomplicated; Z91.040 Latex allergy status; Z88.1 Allergy status to other antibiotic agents; Z88.2 Allergy status to sulfonamides; Z88.8 Allergy status to other drugs, medicaments and biological substances; Z79.84 Long term (current) use of oral hypoglycemic drugs; Z79.82 Long term (current) use of aspirin; Z79.899 Other long term (current) drug therapy
CPT/HCPCS: 99284; S0119

== ENCOUNTER 2022-12-16 11:05 | Emergency (ER) | payer MEDICARE, OTHER ==
--- NOTE | 2022-12-16 12:35 | ED ---
Nausea/Vomiting/Diarrhea HPI - General Chief complaint: Nausea/Vomiting/Diarrhea Stated complaint: nausea Time Seen by Provider: 12/16/22 12:33 Source: patient, RN notes reviewed Mode of arrival: EMS Limitations: no limitations - History of Present Illness Initial comments: This is a 52-year-old male who presents to the emergency department for nausea and vomiting. Patient is concerned that he may be having an allergic reaction. He had what he believes to be bad milk last night, and has since had abdominal pain and nausea/vomiting. He was given Zofran by EMS on route, which was not helpful. Denies any changes in bowel habits. Denies any fevers, chills, sore throat, cough, dyspnea, chest pain, palpitations, vomiting, diarrhea, or headaches. MD complaint: nausea, vomiting, abdominal pain Onset/Timin -: days(s) Associated Abdominal Pain: Yes Location: diffuse - Related Data Home Medications Medication Instructions Recorded Confirmed Tamsulosin [Flomax] 0.4 mg PO HS@199904/12/20 10/14/22 Aspirin EC [Ecotrin Low Dose] 81 mg PO DAILY@0800 07/09/20 10/14/22 amLODIPine [Norvasc] 10 mg PO DAILY@0800 04/10/21 10/14/22 Atorvastatin [Lipitor] 10 mg PO HS@199901/19/22 10/14/22 Cetirizine HCl [Zyrtec] 10 mg PO DAILY@1700 01/19/22 10/14/22 Omeprazole [PriLOSEC] 20 mg PO BID@0801/19/22 10/14/22 lisinopriL [Zestril] 2.5 mg PO DAILY@0801/19/22 10/14/22 Cyclobenzaprine [Flexeril] 5 mg PO DAILY PRN 08/18/22 10/14/22 Ergocalciferol (Vitamin D2) 1,250 mcg PO FR 08/18/22 10/14/22 [Drisdol (50,000 Iu)] Meloxicam [Mobic] 7.5 mg PO DAILY@0800 08/18/22 10/14/22 ARIPiprazole [Abilify] 15 mg PO DAILY@79910/11/22 10/14/22 metFORMIN HCL ER [Glucophage XR] 500 mg PO BID 10/11/22 10/14/22 Previous Rx's Medication Instructions Recorded Melatonin 5 mg PO HS 30 Days #30 tab 08/24/22 Mirtazapine [Remeron] 15 mg PO HS 30 Days #30 tab 08/24/22 Ibuprofen [Motrin] 800 mg PO Q6HR #30 tab 10/13/22 Ondansetron Odt [Zofran Odt] 4 mg PO Q8HR PRN #10 tab 10/13/22 Meclizine [Antivert] 25 mg PO TID PRN #20 tab 10/24/22 Metoclopramide [Reglan] 10 mg PO Q6H PRN #20 tab 10/24/22 Metoclopramide [Reglan] 10 mg PO Q6H PRN #15 tab 12/16/22 Ondansetron Odt [Zofran Odt] 4 mg PO Q8HR PRN #15 tab 12/16/22 Allergies Allergy/AdvReac Type Severity Reaction Status Date / Time dicyclomine HCl [From Bentyl] Allergy Unknown Dyspnea Verified 12/07/22 23:27 latex Allergy Unknown Rash/Hives Verified 12/07/22 23:27 adhesive AdvReac Unknown Itching Verified 12/07/22 23:27 ciprofloxacin AdvReac Unknown Nausea Verified 12/07/22 23:27 Macrolide Antibiotics AdvReac Unknown Nausea Verified 12/07/22 23:27 sulfamethoxazole AdvReac Unknown Unknown Verified 12/07/22 23:27 [From Bactrim] trimethoprim [From Bactrim] AdvReac Unknown Unknown Verified 12/07/22 23:27 Review of Systems ROS Statement: Those systems with pertinent positive or pertinent negative responses have been documented in the HPI. ROS Other: All systems not noted in ROS Statement are negative. Past Medical History Past Medical History: Asthma, Chest Pain / Angina, COPD, CVA/TIA, Diabetes Mellitus, GERD/Reflux, Hearing Disorder / Deafness, Hyperlipidemia, Hypertension, Liver Disease, Osteoarthritis (OA), Pneumonia, Seizure Disorder, Sleep Apnea/CPAP/BIPAP Additional Past Medical History / Comment(s): states CVA at 35 yrs old, no weakness @ this time. states seizure at 35 yrs old., DDD- back & neck pain., carpal tunnel syndrome., hx. of cyst on kidney, uses cpap., states having abdominal pain with diarrhea and nausea ., Lives in a retirement with 2 other people. Has a caregiver.n Has [employer] public guardian. History of Any Multi-Drug Resistant Organisms: None Reported Past Surgical History: Heart Catheterization, Orthopedic Surgery Additional Past Surgical History / Comment(s): Cysts removed, left thumb surgery, colonoscopy 08/24/2019. Skin tags removed from both eyes. Past Anesthesia/Blood Transfusion Reactions: Motion Sickness, Postoperative Nausea & Vomiting (PONV) Past Psychological History: Anxiety, Bipolar, Depression, Schizophrenia Smoking Status: Current every day smoker Past Alcohol Use History: None Reported Past Drug Use History: None Reported - Past Family History Brother(s) Family Medical History: Diabetes Mellitus Additional Family Medical History / Comment(s): Patient has 2 brothers. One from complications from diabetes. The second is alive with diabetes. Sister(s) Family Medical History: Cancer Additional Family Medical History / Comment(s): Patient has one sister with breast cancer. Patient does not have any children. Father Family Medical History: Cancer Additional Family Medical History / Comment(s): Father in his 40s or 50s from colon cancer. Mother Family Medical History: Cancer Additional Family Medical History / Comment(s): Mother at age 68 from lung cancer. General Exam - General Exam Comments Initial Comments: Visual Physical Exam Vital signs reviewed General: Well-appearing, nontoxic, no acute distress. Head: Normocephalic, atraumatic Eyes: PERRLA, EOMI ENT: Airway patent Chest: Nonlabored breathing Skin: No visual rash, normal skin tone Neuro: Alert and oriented 3 Musculoskeletal: No gross abnormalities Limitations: no limitations General appearance: alert, in no apparent distress Head exam: Present: atraumatic, normocephalic, normal inspection Respiratory exam: Present: normal lung sounds bilaterally. Absent: respiratory distress, wheezes, rales, rhonchi, stridor Cardiovascular Exam: Present: regular rate, normal rhythm, normal heart sounds. Absent: systolic murmur, diastolic murmur, rubs, gallop, clicks GI/Abdominal exam: Present: soft, tenderness (Epigastric), normal bowel sounds. Absent: distended Neurological exam: Present: alert, oriented X3, CN II-XII intact Psychiatric exam: Present: normal affect, normal mood Skin exam: Present: warm, dry, intact, normal color. Absent: rash Course Vital Signs 12/16/22 12/16/22 11:20 16:34 Temperature 98 F 97.8 F Pulse Rate 66 87 Respiratory 16 18 Rate Blood Pressure 109/69 127/87 O2 Sat by Pulse 98 98 Oximetry Medical Decision Making - Medical Decision Making This is a 52-year-old male who presents to the emergency department for abdominal pain. Was pt. sent in by a medical professional or institution? @ -No Did you speak to anyone other than the patient for history? @ -No Did you review nursing and triage notes? @ -Yes, and I agree, it is accurate with regards to the patient's symptoms. Were old charts reviewed? @ -No Differential Diagnosis? @ -Differential Abdominal Pain Men: Appendicitis, cholecystitis, diverticulosis, ischemic bowel, pancreatitis, hepatitis, UTI, gastroenteritis, AAA, incarcerated hernia, bowel obstruction, constipation, inflammatory bowel, hepatitis, peptic ulcer disease, splenic infarction, perforated viscus, testicular torsion, this is not meant to be an all-inclusive list EKG interpreted by me (3pts min.)? @ -Not obtained X-rays interpreted by me (1pt min.)? @ -Not obtained CT interpreted by me (1pt min.)? @ -Not obtained U/S interpreted by me (1pt. min.)? @ -Gallbladder ultrasound obtained. My interpretation identifies no evidence of gallbladder wall thickening or cholelithiasis. What testing was considered but not performed? (CT, X-rays, U/S, labs)? Why? @ -None What meds were considered but not given? Why? @ -None Did you discuss the management of the patient with other professionals? @ -No Did you reconcile home meds? @ -No Was smoking cessation discussed for >3mins.? @ -No Was critical care preformed (if so, how long)? @ -No Were there social determinants of health that impacted care today? How? (Homelessness, low income, unemployed, alcoholism, drug addiction, tr ansportation, low edu. Level, literacy, decrease access to med. care, fpc, rehab)? @ -No Was there de-escalation of care discussed even if they declined? (Discuss DNR or withdrawal of care, Hospice)? @ -No What co-morbidities impacted this encounter? (DM, HTN, Smoking, COPD, CAD, Cancer, CVA, Hep., AIDS, mental health diagnosis, sleep apnea, morbid obesity)? @ -DM, liver disease Was patient admitted / discharged? @ -Discharged. Lab work obtained revealing a minor elevation in pancreatic enzymes. Gallbladder ultrasound obtained revealing no acute process. He was initially given IV fluids, Reglan, and Pepcid, with only mild improvement in symptoms. He was then given Compazine, which he felt like was much more helpful. Patient did continue to ask if he could eat while in the emergency department, even when he was making statements that he was nauseous. He is also very well-known to this emergency department for multiple similar complaints. He was discharged home in stable condition with resolution of symptoms. Prescriptions for Reglan and Zofran provided with dosing instructions reviewed. He is advised to remain on clear liquids for the next couple of days due to the elevation in pancreatic enzymes and follow up with his PCP for reevaluation. Undiagnosed new problem with uncertain prognosis? @ -None Drug Therapy requiring intensive monitoring for toxicity (Heparin, Nitro, Insulin, Cardizem)? @ -None Were any procedures done? @ -None Diagnosis/symptom? @ -Nausea and vomiting Acute, or Chronic, or Acute on Chronic? @ -Acute Uncomplicated (without systemic symptoms) or Complicated (systemic symptoms)? @ -Uncomplicated Side effects of treatment? @ -None Exacerbation, Progression, or Severe Exacerbation] @ -Not applicable Poses a threat to life or bodily function? @ -No Return precautions reviewed in depth, the patient is instructed to return to the emergency department with any new, worsening, or concerning symptoms. Patient verbalized understanding. This case was discussed in detail with the attending ED physician, Dr. Smith. Presentation, findings, and treatment plan discussed in detail as well. - Lab Data Result diagrams: 12/16/22 13:15 12/16/22 13:15 Lab Results 12/16/22 12/16/22 Range/Units 13:15 13:15 WBC 8.8 (3.8-10.6) k/uL RBC 5.52 (4.30-5.90) m/uL Hgb 17.4 (13.0-17.5) gm/dL Hct 49.2 (39.0-53.0) % MCV 89.2 (80.0-100.0) fL MCH 31.6 (25.0-35.0) pg MCHC 35.4 (31.0-37.0) g/dL RDW 12.9 (11.5-15.5) % Plt Count 191 (150-450) k/uL MPV 7.7 Neutrophils % 77 % Lymphocytes % 13 % Monocytes % 5 % Eosinophils % 3 % Basophils % 0 % Neutrophils # 6.8 (1.3-7.7) k/uL Lymphocytes # 1.2 (1.0-4.8) k/uL Monocytes # 0.4 (0-1.0) k/uL Eosinophils # 0.3 (0-0.7) k/uL Basophils # 0.0 (0-0.2) k/uL Sodium 139 (137-145) mmol/L Potassium 4.5 (3.5-5.1) mmol/L Chloride 107 (98-107) mmol/L Carbon Dioxide 26 (22-30) mmol/L Anion Gap 6 mmol/L BUN 15 (9-20) mg/dL Creatinine 0.72 (0.66-1.25) mg/dL Est GFR (CKD-EPI)AfAm >90 (>60 ml/min/1.73 sqM) Est GFR (CKD-EPI)NonAf >90 (>60 ml/min/1.73 sqM) Glucose 143 H (74-99) mg/dL Calcium 10.3 H (8.4-10.2) mg/dL Total Bilirubin 0.6 (0.2-1.3) mg/dL AST 33 (17-59) U/L ALT 44 (4-49) U/L Alkaline Phosphatase 85 (38-126) U/L Total Protein 7.3 (6.3-8.2) g/dL Albumin 4.6 (3.5-5.0) g/dL Amylase 117 H (30-110) U/L Lipase 640 H (23-300) U/L - Radiology Data Radiology results: report reviewed, image reviewed Disposition Clinical Impression: Gastroenteritis Disposition: HOME SELF-CARE Instructions (If sedation given, give patient instructions): Acute Nausea and Vomiting (ED) Additional Instructions: Return to the emergency department with any new, worsening, or concerning symptoms. Alternate with Zofran and Reglan if needed for nausea and vomiting. Only drink clear fluids for the next couple of days. Follow up with your primary care provider in 1-2 days. Prescriptions: Metoclopramide [Reglan] 10 mg PO Q6H PRN #15 tab PRN Reason: Nausea And Vomiting Ondansetron Odt [Zofran Odt] 4 mg PO Q8HR PRN #15 tab PRN Reason: Nausea And Vomiting Is patient prescribed a controlled substance at d/c from ED?: No Referrals: Ramya Saul MD [Primary Care Provider] - 1-2 days
[2022-12-16] MEDS ORDERED: FAMOTIDINE 20 MG/2 ML VIAL IV STA (12:56)
[2022-12-16] MEDS ORDERED: METOCLOPRAMIDE 5 MG/ML 2 ML VIAL IVP STA (12:56)
[2022-12-16] MEDS ORDERED: SODIUM CHLORIDE 0.9% 1,000 ML IV STA (12:56)
[2022-12-16 13:25] LABS: Basophils % (A) 0 %; Eosinophils # (A) 0.3 k/uL (0-0.7); Eosinophils % (A) 3 %; HCT 49.2 % (39.0-53.0); HGB 17.4 gm/dL (13.0-17.5); Lymphocytes # (A) 1.2 k/uL (1.0-4.8); Lymphocytes % (A) 13 %; MCH 31.6 pg (25.0-35.0); MCHC 35.4 g/dL (31.0-37.0); MCV 89.2 fL (80.0-100.0); Mean Platelet Volume 7.7; Monocytes # (A) 0.4 k/uL (0-1.0); Monocytes % (A) 5 %; Neutrophils # (A) 6.8 k/uL (1.3-7.7); Neutrophils % (A) 77 %; Platelet Count 191 k/uL (150-450); RBC 5.52 m/uL (4.30-5.90); RDW 12.9 % (11.5-15.5); WBC 8.8 k/uL (3.8-10.6)
[2022-12-16 13:42] LABS: ALT 44 U/L (4-49); African American GFR (CKD) >90 (>60 ml/min/1.73 sqM); Albumin 4.6 g/dL (3.5-5.0); Amylase 117 U/L (30-110); Anion Gap 6 mmol/L; Blood Urea Nitrogen 15 mg/dL (9-20); Calcium 10.3 mg/dL (8.4-10.2); Carbon Dioxide 26 mmol/L (22-30); Chloride 107 mmol/L (98-107); Glucose 143 mg/dL (74-99); Lipase 640 U/L (23-300); Non-African American GFR(CKD) >90 (>60 ml/min/1.73 sqM); Sodium 139 mmol/L (137-145); Total Bilirubin 0.6 mg/dL (0.2-1.3); Total Protein 7.3 g/dL (6.3-8.2)
[2022-12-16 13:51] LABS: AST 33 U/L (17-59); Potassium 4.5 mmol/L (3.5-5.1)
[2022-12-16 13:52] LABS: Alkaline Phosphatase 85 U/L (38-126)
--- NOTE | 2022-12-16 14:53 | US ---
EXAMINATION TYPE: US gallbladder DATE OF EXAM: 12/16/2022 COMPARISON: CT 2022, US 2019 CLINICAL INDICATION: Male, 52 years old with history of Epigastric pain, N/V; Abdomen pain x N/V x 1 day TECHNIQUE: Multiple sonographic images of the right upper quadrant are obtained. FINDINGS: EXAM MEASUREMENTS: Liver Length: 15.8 cm Gallbladder Wall: 0.2 cm CBD: 0.6 cm Right Kidney: 11.1 x 5.2 x 4.8 cm Pancreas: visualized portions wnl, limited by overlying midline bowel gas Liver: attenuating, heterogeneous, increased echogenicity, course echotexture, Gallbladder: wnl Evidence for sonographic Durán's sign: no CBD: borderline dilated Right Kidney: 1.9cm hypoechoic area lateral mid pole, 1.4cm exophytic hypoechoic area inferior pole . Findings can be compatible simple cysts. IMPRESSION: 1. Right renal cyst.
[2022-12-16] MEDS ORDERED: PROCHLORPERAZINE INJ 10 MG/2 ML VIAL IVP STA (15:05)
[2022-12-16] MEDS ORDERED: HYDROmorphone 1 MG/ML 1 ML SYRINGE IVP STA (15:05)
[2022-12-16] MEDS ORDERED: ONDANSETRON 4 MG ODT STARTER PACK 2 TAB BTL PO STA (15:49)
[2022-12-16] MEDS ORDERED: ACET/COD 300 MG/30 MG STARTER PACK 6 TAB BTL PO STA (15:49)
[2022-12-16 16:39] VITALS: BP 127/87; PULSE 87; RESP 18; TEMP 97.8
== END 2022-12-16 16:39 | disposition home or self-care (01) ==
LOC: EC 11:05
DX: K52.9 Noninfective gastroenteritis and colitis, unspecified (principal); N28.1 Cyst of kidney, acquired; J44.9 Chronic obstructive pulmonary disease, unspecified; E11.9 Type 2 diabetes mellitus without complications; K21.9 Gastro-esophageal reflux disease without esophagitis; E78.5 Hyperlipidemia, unspecified; I10 Essential (primary) hypertension; M19.90 Unspecified osteoarthritis, unspecified site; G47.30 Sleep apnea, unspecified; F41.9 Anxiety disorder, unspecified; F31.9 Bipolar disorder, unspecified; F17.200 Nicotine dependence, unspecified, uncomplicated; Z86.73 Personal history of transient ischemic attack (TIA), and cerebral infarction without residual deficits; Z79.82 Long term (current) use of aspirin; Z79.84 Long term (current) use of oral hypoglycemic drugs; Z79.1 Long term (current) use of non-steroidal anti-inflammatories (NSAID); Z79.899 Other long term (current) drug therapy; Z91.09 Other allergy status, other than to drugs and biological substances; Z88.2 Allergy status to sulfonamides; Z88.6 Allergy status to analgesic agent; Z88.8 Allergy status to other drugs, medicaments and biological substances; Z91.040 Latex allergy status; Z88.1 Allergy status to other antibiotic agents
CPT/HCPCS: 36415; 80053; 82150; 83690; 85025; 76705; 99285; 96374; 96375 ×3; 96361; J0780; J2765; J1170; S0119

== ENCOUNTER 2022-12-17 12:21 | Observation (INO) | payer MEDICARE, OTHER ==
[2022-12-17 12:59] LABS: Basophils % (A) 0 %; Eosinophils # (A) 0.2 k/uL (0-0.7); Eosinophils % (A) 3 %; HCT 46.9 % (39.0-53.0); HGB 16.3 gm/dL (13.0-17.5); Lymphocytes # (A) 1.1 k/uL (1.0-4.8); Lymphocytes % (A) 16 %; MCH 30.9 pg (25.0-35.0); MCHC 34.8 g/dL (31.0-37.0); MCV 88.7 fL (80.0-100.0); Mean Platelet Volume 7.6; Monocytes # (A) 0.4 k/uL (0-1.0); Monocytes % (A) 5 %; Neutrophils # (A) 5.2 k/uL (1.3-7.7); Neutrophils % (A) 75 %; Platelet Count 176 k/uL (150-450); RBC 5.29 m/uL (4.30-5.90); RDW 12.8 % (11.5-15.5)
[2022-12-17 13:01] LABS: Appearance,Urine Clear (Clear); Bilirubin,Urine Negative (Negative); Blood,Urine Negative (Negative); Color,Urine Light Yellow; Glucose,Urine (UA) Negative (Negative); Ketones,Urine Negative (Negative); Leukocyte Esterase,Urine Negative (Negative); Nitrite,Urine Negative (Negative); Protein,Urine Negative (Negative); Specific Gravity,Urine 1.007 (1.001-1.035); Urobilinogen,Urine <2.0 mg/dL (<2.0)
[2022-12-17 13:34] LABS: ALT 41 U/L (4-49); AST 28 U/L (17-59); African American GFR (CKD) >90 (>60 ml/min/1.73 sqM); Albumin 3.9 g/dL (3.5-5.0); Alkaline Phosphatase 92 U/L (38-126); Anion Gap 6 mmol/L; Blood Urea Nitrogen 13 mg/dL (9-20); Calcium 8.7 mg/dL (8.4-10.2); Carbon Dioxide 23 mmol/L (22-30); Chloride 112 mmol/L (98-107); Glucose 148 mg/dL (74-99); Lipase 1264 U/L (23-300); Non-African American GFR(CKD) >90 (>60 ml/min/1.73 sqM); Sodium 141 mmol/L (137-145); Total Bilirubin 0.4 mg/dL (0.2-1.3); Total Protein 6.3 g/dL (6.3-8.2)
[2022-12-17] MEDS ORDERED: MORPHINE SULFATE 4 MG/ML SYRINGE IVP STA (14:02)
[2022-12-17] MEDS ORDERED: NALOXONE 0.4 MG/ML 1 ML VIAL IV PRN (14:15)
[2022-12-17] MEDS ORDERED: MORPHINE SULFATE 4 MG/ML SYRINGE IV PRN (14:15)
--- NOTE | 2022-12-17 14:24 | ED ---
General Adult HPI - General Chief complaint: Abdominal Pain Stated complaint: ABD Pain Time Seen by Provider: 12/17/22 12:23 Source: patient, EMS, RN notes reviewed, old records reviewed Mode of arrival: EMS Limitations: no limitations - History of Present Illness Initial comments: 52-year-old male presenting for evaluation of abdominal pain. Patient has been seen multiple times with same complaints multiple times. He states he has poor appetite. No fever. Pain is epigastric. Denies alcohol consumption. - Related Data Home Medications Medication Instructions Recorded Confirmed Tamsulosin [Flomax] 0.4 mg PO HS@199904/12/20 10/14/22 Aspirin EC [Ecotrin Low Dose] 81 mg PO DAILY@0800 07/09/20 10/14/22 amLODIPine [Norvasc] 10 mg PO DAILY@0804/10/21 10/14/22 Atorvastatin [Lipitor] 10 mg PO HS@199901/19/22 10/14/22 Cetirizine HCl [Zyrtec] 10 mg PO DAILY@17001/19/22 10/14/22 Omeprazole [PriLOSEC] 20 mg PO BID@08,199901/19/22 10/14/22 lisinopriL [Zestril] 2.5 mg PO DAILY@0801/19/22 10/14/22 Cyclobenzaprine [Flexeril] 5 mg PO DAILY PRN 08/18/22 10/14/22 Ergocalciferol (Vitamin D2) 1,250 mcg PO FR 08/18/22 10/14/22 [Drisdol (50,000 Iu)] Meloxicam [Mobic] 7.5 mg PO DAILY@0800 08/18/22 10/14/22 ARIPiprazole [Abilify] 15 mg PO DAILY@0800 10/11/22 10/14/22 metFORMIN HCL ER [Glucophage XR] 500 mg PO BID 10/11/22 10/14/22 Previous Rx's Medication Instructions Recorded Melatonin 5 mg PO HS 30 Days #30 tab 08/24/22 Mirtazapine [Remeron] 15 mg PO HS 30 Days #30 tab 08/24/22 Ibuprofen [Motrin] 800 mg PO Q6HR #30 tab 10/13/22 Ondansetron Odt [Zofran Odt] 4 mg PO Q8HR PRN #10 tab 10/13/22 Meclizine [Antivert] 25 mg PO TID PRN #20 tab 10/24/22 Metoclopramide [Reglan] 10 mg PO Q6H PRN #20 tab 10/24/22 Metoclopramide [Reglan] 10 mg PO Q6H PRN #15 tab 12/16/22 Ondansetron Odt [Zofran Odt] 4 mg PO Q8HR PRN #15 tab 12/16/22 Allergies Allergy/AdvReac Type Severity Reaction Status Date / Time dicyclomine HCl [From Bentyl] Allergy Unknown Dyspnea Verified 12/17/22 12:27 latex Allergy Unknown Rash/Hives Verified 12/17/22 12:27 adhesive AdvReac Unknown Itching Verified 12/17/22 12:27 ciprofloxacin AdvReac Unknown Nausea Verified 12/17/22 12:27 Macrolide Antibiotics AdvReac Unknown Nausea Verified 12/17/22 12:27 sulfamethoxazole AdvReac Unknown Unknown Verified 12/17/22 12:27 [From Bactrim] trimethoprim [From Bactrim] AdvReac Unknown Unknown Verified 12/17/22 12:27 Review of Systems ROS Statement: Those systems with pertinent positive or pertinent negative responses have been documented in the HPI. ROS Other: All systems not noted in ROS Statement are negative. Past Medical History Past Medical History: Asthma, Chest Pain / Angina, COPD, CVA/TIA, Diabetes Mellitus, GERD/Reflux, Hearing Disorder / Deafness, Hyperlipidemia, Hypertension, Liver Disease, Osteoarthritis (OA), Pneumonia, Seizure Disorder, Sleep Apnea/CPAP/BIPAP Additional Past Medical History / Comment(s): states CVA at 35 yrs old, no weakness @ this time. states seizure at 35 yrs old., DDD- back & neck pain., carpal tunnel syndrome., hx. of cyst on kidney, uses cpap., states having abdominal pain with diarrhea and nausea ., Lives in a custodial with 2 other people. Has a caregiver.n Has [employer] public guardian. History of Any Multi-Drug Resistant Organisms: None Reported Past Surgical History: Heart Catheterization, Orthopedic Surgery Additional Past Surgical History / Comment(s): Cysts removed, left thumb surgery, colonoscopy 08/24/2019. Skin tags removed from both eyes. Past Anesthesia/Blood Transfusion Reactions: Motion Sickness, Postoperative N ausea & Vomiting (PONV) Past Psychological History: Anxiety, Bipolar, Depression, Schizophrenia Smoking Status: Current every day smoker Past Alcohol Use History: None Reported Past Drug Use History: None Reported - Past Family History Brother(s) Family Medical History: Diabetes Mellitus Additional Family Medical History / Comment(s): Patient has 2 brothers. One from complications from diabetes. The second is alive with diabetes. Sister(s) Family Medical History: Cancer Additional Family Medical History / Comment(s): Patient has one sister with breast cancer. Patient does not have any children. Father Family Medical History: Cancer Additional Family Medical History / Comment(s): Father in his 40s or 50s from colon cancer. Mother Family Medical History: Cancer Additional Family Medical History / Comment(s): Mother at age 68 from lung cancer. General Exam Limitations: no limitations General appearance: alert, in no apparent distress Head exam: Present: atraumatic, normocephalic Eye exam: Present: normal appearance, PERRL ENT exam: Present: normal exam, normal oropharynx Neck exam: Present: normal inspection. Absent: tenderness, meningismus Respiratory exam: Present: normal lung sounds bilaterally. Absent: respiratory distress, wheezes Cardiovascular Exam: Present: regular rate, normal rhythm GI/Abdominal exam: Present: soft, tenderness. Absent: distended Extremities exam: Present: normal inspection, normal capillary refill. Absent: pedal edema Neurological exam: Present: alert, oriented X3, CN II-XII intact. Absent: motor sensory deficit Psychiatric exam: Present: normal affect, normal mood Skin exam: Present: warm, dry, intact. Absent: cyanosis, diaphoretic Course Vital Signs 12/17/22 12/17/22 12:23 14:02 Temperature 98.6 F Pulse Rate 72 81 Respiratory 17 17 Rate Blood Pressure 132/89 122/75 O2 Sat by Pulse 97 100 Oximetry Medical Decision Making - Medical Decision Making Was pt. sent in by a medical professional or institution (, PA, GRANITE SANDBLASTER APPRENTICE, urgent care, hospital, or jail...) When possible be specific @ -No Did you speak to anyone other than the patient for history (EMS, parent, family, police, friend...)? What history was obtained from this source @ -No Did you review nursing and triage notes (agree or disagree)? Why? @ -I reviewed and agree with nursing and triage notes Were old charts reviewed (outside hosp., previous admission, EMS record, old EKG, old radiological studies, urgent care reports/EKG's, jail records)? Report findings @ -[Previous laboratory tests, previous ER evaluations Differential Diagnosis (chest pain, altered mental status, abdominal pain women, abdominal pain men, vaginal bleeding, weakness, fever, dyspnea, syncope, headache, dizziness, GI bleed, back pain, seizure, CVA, palpatations, mental health, musculoskeletal)? @ -[Edema abdominal pain men EKG interpreted by me (3pts min.). @ -As above X-rays interpreted by me (1pt min.). @ -None done CT interpreted by me (1pt min.). @ -None done U/S interpreted by me (1pt. min.). @ -None done What testing was considered but not performed or refused? (CT, X-rays, U/S, labs)? Why? @ -None What meds were considered but not given or refused? Why? @ -None Did you discuss the management of the patient with other professionals (professionals i.e. , PA, GRANITE SANDBLASTER APPRENTICE, lab, RT, psych nurse, social sciences lecturer, church organist, teacher, president and chief commercial officer, casework supervisor)? Give summary @ -EMH Was smoking cessation discussed for >3mins.? @ -No Was critical care preformed (if so, how long)? @ -No Were there social determinants of health that impacted care today? How? (Homelessness, low income, unemployed, alcoholism, drug addiction, transportation, low edu. Level, literacy, decrease access to med. care, fpc, rehab)? @ -No Was there de-escalation of care discussed even if they declined (Discuss DNR or withdrawal of care, Hospice)? DNR status @ -No What co-morbidities impacted this encounter? (DM, HTN, Smoking, COPD, CAD, Cancer, CVA, ARF, Chemo, Hep., AIDS, mental health diagnosis, sleep apnea, morbid obesity)? @ -[Hypertension, chronic abdominal pain Was patient admitted / discharged? Hospital course, mention meds given and route, prescriptions, significant lab abnormalities, going to OR and other pertinent info. @ -[52-year-old male with epigastric abdominal pain. He does have tenderness on exam. Vital signs are stable. He's had nausea and poor appetite. Patient has an elevated lipase at 1200. Otherwise normal lab testing. He will be placed in observation for symptom control. Undiagnosed new problem with uncertain prognosis? @ -No Drug Therapy requiring intensive monitoring for toxicity (Heparin, Nitro, Insulin, Cardizem)? @ -No Were any procedures done? @ -No Diagnosis/symptom? @ -[ Pancreatitis Acute, or Chronic, or Acute on Chronic? @ -[Acute Uncomplicated (without systemic symptoms) or Complicated (systemic symptoms)? @ -default Side effects of treatment? @ -No Exacerbation, Progression, or Severe Exacerbation? @ -No Poses a threat to life or bodily function? How? (Chest pain, [place], [place], pneumonia, PE, COPD, DKA, ARF, appy, cholecystitis, CVA, Diverticulitis, Homicidal, Suicidal, threat to staff... and all critical care pts) @ -[Yes, pancreatitis - Lab Data Result diagrams: 12/17/22 12:44 12/17/22 12:44 Lab Results 12/17/22 12/17/22 12/17/22 Range/Units 12:44 12:44 12:44 WBC 7.0 (3.8-10.6) k/uL RBC 5.29 (4.30-5.90) m/uL Hgb 16.3 (13.0-17.5) gm/dL Hct 46.9 (39.0-53.0) % MCV 88.7 (80.0-100.0) fL MCH 30.9 (25.0-35.0) pg MCHC 34.8 (31.0-37.0) g/dL RDW 12.8 (11.5-15.5) % Plt Count 176 (150-450) k/uL MPV 7.6 Neutrophils % 75 % Lymphocytes % 16 % Monocytes % 5 % Eosinophils % 3 % Basophils % 0 % Neutrophils # 5.2 (1.3-7.7) k/uL Lymphocytes # 1.1 (1.0-4.8) k/uL Monocytes # 0.4 (0-1.0) k/uL Eosinophils # 0.2 (0-0.7) k/uL Basophils # 0.0 (0-0.2) k/uL Sodium 141 (137-145) mmol/L Potassium 4.0 (3.5-5.1) mmol/L Chloride 112 H (98-107) mmol/L Carbon Dioxide 23 (22-30) mmol/L Anion Gap 6 mmol/L BUN 13 (9-20) mg/dL Creatinine 0.64 L (0.66-1.25) mg/dL Est GFR (CKD-EPI)AfAm >90 (>60 ml/min/1.73 sqM) Est GFR (CKD-EPI)NonAf >90 (>60 ml/min/1.73 sqM) Glucose 148 H (74-99) mg/dL Calcium 8.7 (8.4-10.2) mg/dL Total Bilirubin 0.4 (0.2-1.3) mg/dL AST 28 (17-59) U/L ALT 41 (4-49) U/L Alkaline Phosphatase 92 (38-126) U/L Total Protein 6.3 (6.3-8.2) g/dL Albumin 3.9 (3.5-5.0) g/dL Lipase 1264 H (23-300) U/L Urine Color Light Yellow Urine Appearance Clear (Clear) Urine pH 7.0 (5.0-8.0) Ur Specific [place] 1.007 (1.001-1.035) Urine Protein Negative (Negative) Urine Glucose (UA) Negative (Negative) Urine Ketones Negative (Negative) Urine Blood Negative (Negative) Urine Nitrite Negative (Negative) Urine Bilirubin Negative (Negative) Urine Urobilinogen <2.0 (<2.0) mg/dL Ur Leukocyte Esterase Negative (Negative) Disposition Clinical Impression: Elevated lipase, Pancreatitis, Abdominal pain Disposition: ADMITTED IP TO THIS HOSP Condition: Stable Is patient prescribed a controlled substance at d/c from ED?: No Referrals: Ramya Saul MD [Primary Care Provider] - 1-2 days Time of Disposition: 14:24
[2022-12-17] MEDS: SODIUM CHLORIDE 0.9% 1,000 ML IV SCH (14:27)
[2022-12-17] MEDS ORDERED: IOPAMIDOL CONTRAST (ORAL USE) VIAL PO PRN (15:59)
[2022-12-17] MEDS ORDERED: METOCLOPRAMIDE 10 MG TAB PO PRN (15:59)
[2022-12-17] MEDS ORDERED: LORATADINE 10 MG TAB PO SCH (17:00)
[2022-12-17] MEDS: DIPHENOX-ATROP 2.5-0.025 MG 1 EACH TAB PO SCH ×2 (17:33→20:27)
[2022-12-17] MEDS: HYDROmorphone 0.5 MG/0.5 ML SYRINGE IVP PRN ×2 (17:33→23:15)
[2022-12-17] MEDS: ONDANSETRON 4 MG/2 ML VIAL IVP PRN (17:55)
--- NOTE | 2022-12-17 19:55 | CT ---
EXAMINATION TYPE: CT abdomen pelvis wo/w con DATE OF EXAM: 12/17/2022 COMPARISON: CT 10/13/2022 HISTORY: Pancreatitis. CT DLP: 1766.8 mGycm, Automated Exposure Control for Dose Reduction was Utilized. CONTRAST: CT scan of the abdomen and pelvis is performed with oral and with IV Contrast, patient inje cted with 100 ml mL of Isovue 370. FINDINGS: LUNG BASES: No significant abnormality is appreciated. LIVER/GB: No significant abnormality is appreciated. PANCREAS: The pancreatic parenchyma and ductal anatomy have normal appearance. The surrounding anteri or pararenal space has normal appearance. SPLEEN: No significant abnormality is seen. Stable 5.5 cm smoothly marginated homogeneously hypodens e splenic cyst with uniformly thin peripheral calcification of its margins. ADRENALS: No significant abnormality is seen. KIDNEYS: No significant abnormality is seen. BOWEL: No significant abnormality is seen. PROSTATE/SEMINAL VESICLES: No gross abnormality seen. LYMPH NODES: No greater than 1cm abdominal or pelvic lymph nodes are appreciated. OSSEOUS STRUCTURES: No significant abnormality is seen. VASCULATURE: No acute findings. IMPRESSION: No acute process.
[2022-12-17] MEDS ORDERED: ATORVASTATIN 10 MG TAB PO SCH (20:00)
[2022-12-17] MEDS ORDERED: TAMSULOSIN 0.4 MG CAP.ER.24H PO SCH (20:00)
[2022-12-17] MEDS ORDERED: MIRTAZAPINE 15 MG TAB PO SCH (20:00)
[2022-12-17] MEDS ORDERED: MELATONIN 5 MG TABLET PO SCH (20:00)
[2022-12-17 20:26] LABS: Glucose,Whole Blood 121 mg/dL (70-110)
[2022-12-17] MEDS: HYDROcodone/APAP 5-325MG 1 EACH TAB PO PRN (20:27)
[2022-12-17] MEDS: HEPARIN SODIUM,PORCINE/PF 5,000 UNIT/0.5 ML SYRINGE SQ SCH (20:27)
[2022-12-17] MEDS: PANTOPRAZOLE 40 MG/10 ML VIAL IVP SCH (20:27)
[2022-12-17] MEDS: metFORMIN 500 MG TAB PO SCH (20:27)
--- NOTE | 2022-12-17 22:43 | HP ---
HISTORY AND PHYSICAL CHIEF COMPLAINT: Abdominal pain and weakness. HISTORY OF PRESENT ILLNESS: This is a 52-year-old gentleman with a past medical history of multiple medical problems including COPD, CVA, diabetes, and GERD, apparently living in an assisted living. The patient reports that difficult. The patient had multiple complaints. The patient had poor appetite. The patient also complained of abdominal pain, which was in the epigastrium. Lipase was elevated and guess acute pancreatitis. There is no history of alcoholism per se. There is no history of any fever or rigors. He had a CT scan, which is not available. PAST MEDICAL HISTORY: Reviewed includes diabetes mellitus, GERD, hypertension, and hyperlipidemia. Rest of the history and rest of the chart are also reviewed. HOME MEDICATIONS: Reviewed include Januvia. Doses and rest of the medications are noted. ALLERGIES: Reviewed include latex. Rest of the allergies are noted. FAMILY HISTORY: History of diabetes in the family. SOCIAL HISTORY: History of smoking. REVIEW OF SYSTEMS: Fourteen-point review is negative except as mentioned earlier. PHYSICAL EXAMINATION: VITAL SIGNS: Pulse 71, blood pressure 121/80, respirations 20. HEENT: Conjunctivae are normal. NECK: No jugular venous distention. CARDIOVASCULAR: S1 and S2 muffled. RESPIRATORY: Breath sounds diminished at the bases. Few rhonchi and crackles. ABDOMEN: Soft. Mild diffuse distention. Mild diffuse tenderness. No guarding. No rigidity. No masses palpable. Bowel sounds diminished. LEGS: No edema. No swelling. NERVOUS SYSTEM: No focal deficits. LABORATORY DATA: Reviewed. ASSESSMENT: 1. Abdominal pain, possible acute pancreatitis. 2. History of asthma and chronic obstructive pulmonary disease. 3. Diabetes mellitus, type 2. 4. Hypertension. 5. Hyperlipidemia. 6. History of chronic liver disease. 7. History of seizure disorder. 8. History of anxiety and bipolar depression. RECOMMENDATIONS AND DISCUSSION: Recommend to continue the current medications. Recommend a CT scan of the abdomen and pelvis and a chest x-ray also to complete the workup. Amylase and lipase. Symptomatic treatment. PT and OT evaluation. Social Service evaluation to evaluate the home situation. The patient was admitted to the psychiatric floor with schizoaffective disorder and nicotine dependence. See orders for further details. Prognosis is guarded. Further recommendations to follow. MMODL / IJN: [id number] /
[2022-12-18] MEDS: HYDROcodone/APAP 5-325MG 1 EACH TAB PO PRN ×2 (03:07→15:23)
[2022-12-18] MEDS: SODIUM CHLORIDE 0.9% 1,000 ML IV SCH ×2 (04:22→05:42)
[2022-12-18] MEDS: ONDANSETRON 4 MG/2 ML VIAL IVP PRN (05:42)
[2022-12-18 06:09] LABS: Glucose,Whole Blood 117 mg/dL (70-110)
[2022-12-18] MEDS: HYDROmorphone 0.5 MG/0.5 ML SYRINGE IVP PRN (06:47)
[2022-12-18 08:00] VITALS: RESP 18
[2022-12-18] MEDS ORDERED: ARIPiprazole 15 MG TAB PO SCH (08:00)
[2022-12-18] MEDS ORDERED: amLODIPine 10 MG TAB PO SCH (08:00)
[2022-12-18] MEDS ORDERED: ASPIRIN 81 MG PO SCH (08:00)
[2022-12-18] MEDS ORDERED: LINAGLIPTIN 5 MG TABLET PO SCH (08:00)
[2022-12-18] MEDS ORDERED: ERGOCALCIFEROL 1,250 MCG (50,000 IU) CAPSULE PO SCH (09:00)
[2022-12-18] MEDS: metFORMIN 500 MG TAB PO SCH (09:24)
[2022-12-18 09:29] LABS: Basophils # (A) 0.03 X 10*3/uL (0.00-0.10); Basophils % (A) 0.3 %; Eosinophils # (A) 0.35 X 10*3/uL (0.04-0.35); HCT 44.1 % (39.6-50.0); HGB 15.4 d/dL (12.0-15.0); Lymphocytes % (A) 18.4 %; MCH 30.7 pg (27.0-32.0); MCHC 34.9 d/dL (32.0-37.0); MCV 87.8 FL (80.0-97.0); Mean Platelet Volume 10.6 FL (9.5-12.2); Monocytes # (A) 0.75 X 10*3/uL (0.20-1.00); Monocytes % (A) 8.6 %; NRBC Per 100 WBC 0 X 10*3/uL (0.00-0.01); Neutrophils % (A) 68.1 %; Platelet Count 177 X 10*3/uL (140-440); RBC 5.02 X 10*6/uL (4.40-5.60); RDW 12.7 % (11.5-14.5); WBC 8.68 X 10*3/uL (4.50-10.00)
[2022-12-18] MEDS: DIPHENOX-ATROP 2.5-0.025 MG 1 EACH TAB PO SCH ×2 (09:29→12:35)
[2022-12-18] MEDS: PANTOPRAZOLE 40 MG/10 ML VIAL IVP SCH (09:31)
[2022-12-18] MEDS: HEPARIN SODIUM,PORCINE/PF 5,000 UNIT/0.5 ML SYRINGE SQ SCH (09:31)
[2022-12-18 09:39] LABS: ALT 38 U/L (10-49); AST 21 U/L (14-35); Albumin 3.8 d/dL (3.8-4.9); Albumin/Globulin Ratio 2.11 Ratio (1.60-3.17); Alkaline Phosphatase 74 U/L (41-126); Amylase 168 U/L (23-121); Blood Urea Nitrogen 11.2 mg/dL (9.0-27.0); Calcium 8.6 mg/dL (8.7-10.3); Carbon Dioxide 19.7 mmol/L (21.6-31.8); Chloride 109 mmol/L (96-109); Chol/HDL Ratio 3.37 Ratio; Globulin 1.8 d/dL (1.6-3.3); Glucose 108 mg/dL (70-110); LDL Cholesterol,Calculated 39.7 mg/dL (0.0-131.0); Lipase 118 U/L (14-60); Sodium 139 mmol/L (135-145); Total Bilirubin 0.4 mg/dL (0.3-1.2); Total Protein 5.6 d/dL (6.2-8.2)
[2022-12-18 11:20] LABS: Glucose,Whole Blood 187 mg/dL (70-110)
[2022-12-18 14:49] VITALS: BP 131/79; PULSE 74; TEMP 98.8
[2022-12-18 17:12] LABS: Glucose,Whole Blood 191 mg/dL (70-110)
--- NOTE | 2022-12-18 22:44 | P.DS ---
Providers Date of admission: 12/17/22 14:16 Attending physician: Magdalena Gomez [facility] [place] Hospital Course: Diagnoses: Recurrent Acute pancreatitis secondary to medication effect highly suspected Januvia, patient instructed to discontinue Januvia upon discharge and he agrees Abdominal pain secondary to above complaint significantly resolved Hypertension Hyperlipidemia Type 2 diabetes mellitus Depression and anxiety Benign prostatic hypertrophy Mild obesity with BMI of 30.9 hospital course: This is a pleasant 52 years old male who was admitted on 12/17 for recurrent abdominal pain and nausea area patient recently visited the ER on 12/16 for similar complaint of nausea vomiting, at that time he had mildly elevated pancreatic enzymes however during this admission her lipase went up to 1264. Patient was treated symptomatically with IV hydration, IV prep. Patient showed interval improvement and today he is telling me his abdominal pain significantly improved, he tolerates lunch very well. He tolerates diet well. No diarrhea. Abdominal pain controlled. Hemodynamically stable. Patient is able to go home. Patient with no history of alcohol, ultrasound is negative for gallbladder disease done yesterday. CT of the abdomen: Without contrast: No acute process. Most likely patient's pancreatitis is due to medication effect secondary to Januvia. Patient counseled to discontinue Januvia and decreased metformin 500 mg up to 1000 mg and a new prescription sent to the pharmacy upon patient request. Patient requested to go to [place] [facility], probably guardian was consulted and he wants patient back to his [facility], patient informed and he is agreeable. Problems and management plan were discussed with the patient and he verbalized understanding and acceptance Patient was found stable and can be discharged home in guarded prognosis however he needs follow-up as an outpatient. Patient was instructed to follow up with PCP within one week and patient agrees Patient was instructed to follow up with GI Dr. Gonzalez in 2 weeks and college scouting coordinator Dr. Hannon in 2 weeks and he agrees Physical exam Gen: patient is a AAOx3, no distress CVS: S1-S2, RRR, no murmur Lungs: B/L CTA, no wheezing Abdomen: soft, no distention, no tenderness, positive bowel sounds Extremity: no leg edema or induration Time spent more than 35 minutes Patient Condition at Discharge: Stable Plan - Discharge Summary Discharge Rx Participant: Yes New Discharge Prescriptions: Continue Tamsulosin [Flomax] 0.4 mg PO HS@1999 Aspirin EC [Ecotrin Low Dose] 81 mg PO DAILY@0800 lisinopriL [Zestril] 2.5 mg PO DAILY@0800 Ergocalciferol (Vitamin D2) [Drisdol (50,000 Iu)] 1,250 mcg PO FR Metoclopramide [Reglan] 10 mg PO Q6H PRN #15 tab PRN Reason: Nausea And Vomiting Acetaminophen-Codeine 300-30mg [Tylenol w/codeine #3] 1 tab PO Q6H PRN PRN Reason: Pain ARIPiprazole [Abilify] 7.5 mg PO DAILY@0800 amLODIPine [Norvasc] 10 mg PO DAILY@0800 Cetirizine HCl [Zyrtec] 10 mg PO DAILY@170 Atorvastatin [Lipitor] 10 mg PO HS@1999 Ondansetron Odt [Zofran ODT] 4 mg PO Q8HR PRN #15 tab PRN Reason: Nausea And Vomiting Melatonin 5 mg PO HS@1999 Diphenoxylate HCl/Atropine [Lomotil 2.5-0.025 mg Tablet] 1 tab PO QID@08,12,17,20 Mirtazapine [Remeron] 30 mg PO HS@1999 Changed metFORMIN HCL ER [Glucophage XR] 1,000 mg PO BID@799,1999 #120 tab Meloxicam [Mobic] 7.5 mg PO DAILY@0800 PRN #0 PRN Reason: Severe Pain (Scale 7 To 10) Discontinued sitaGLIPtin [Januvia] 100 mg PO DAILY@0800 Discharge Medication List Tamsulosin [Flomax] 0.4 mg PO HS@199904/12/20 [History] Aspirin EC [Ecotrin Low Dose] 81 mg PO DAILY@0800 07/09/20 [History] amLODIPine [Norvasc] 10 mg PO DAILY@0800 04/10/21 [History] Atorvastatin [Lipitor] 10 mg PO HS@199901/19/22 [History] Cetirizine HCl [Zyrtec] 10 mg PO DAILY@1700 01/19/22 [History] lisinopriL [Zestril] 2.5 mg PO DAILY@0800 01/19/22 [History] Ergocalciferol (Vitamin D2) [Drisdol (50,000 Iu)] 1,250 mcg PO FR 08/18/22 [History] Metoclopramide [Reglan] 10 mg PO Q6H PRN #15 tab 12/16/22 [Rx] Ondansetron Odt [Zofran ODT] 4 mg PO Q8HR PRN #15 tab 12/16/22 [Rx] ARIPiprazole [Abilify] 7.5 mg PO DAILY@0800 12/17/22 [History] Acetaminophen-Codeine 300-30mg [Tylenol w/codeine #3] 1 tab PO Q6H PRN 12/17/22 [History] Diphenoxylate HCl/Atropine [Lomotil 2.5-0.025 mg Tablet] 1 tab PO QID@08,12,17,12/17/22 [History] Melatonin 5 mg PO HS@199912/17/22 [History] Mirtazapine [Remeron] 30 mg PO HS@199912/17/22 [History] Meloxicam [Mobic] 7.5 mg PO DAILY@0800 PRN #0 12/18/22 [Rx] metFORMIN HCL ER [Glucophage XR] 1,000 mg PO BID@799,1999 #120 tab 12/18/22 [Rx] Follow up Appointment(s)/Referral(s): Wolf Benitez MD [REFERRING] - 2 Weeks (diabetes mellitus ) Carissa Gonzalez MD [STAFF PHYSICIAN] - 2 Weeks Ramya Saul MD [Primary Care Provider] - 1-2 days Activity/Diet/Wound Care/Special Instructions: heart healthy diet activity is restricted till you see your doctor we recommend you stop Januvia as it might be contributing to your pancreatitis attacke and increase your metformin dose sa instructed and follow up with your primary care doctor in one week Discharge Disposition: HOME SELF-CARE
== END 2022-12-18 18:25 | disposition home or self-care (01) ==
LOC: EC 12:21 → 6NMEDSUR 14:16
PROVIDERS: ADMIT Hospitalist; ATTEND Hospitalist
DX: K85.90 Acute pancreatitis without necrosis or infection, unspecified (principal); E78.5 Hyperlipidemia, unspecified; I10 Essential (primary) hypertension; E11.9 Type 2 diabetes mellitus without complications; F41.9 Anxiety disorder, unspecified; J44.9 Chronic obstructive pulmonary disease, unspecified; K76.89 Other specified diseases of liver; K21.9 Gastro-esophageal reflux disease without esophagitis; G40.909 Epilepsy, unspecified, not intractable, without status epilepticus; F31.9 Bipolar disorder, unspecified; N40.0 Benign prostatic hyperplasia without lower urinary tract symptoms; E66.9 Obesity, unspecified; F25.9 Schizoaffective disorder, unspecified; F17.200 Nicotine dependence, unspecified, uncomplicated; Z68.30 Body mass index [BMI] 30.0-30.9, adult; Z86.73 Personal history of transient ischemic attack (TIA), and cerebral infarction without residual deficits; Z83.3 Family history of diabetes mellitus; Z79.84 Long term (current) use of oral hypoglycemic drugs; Z79.82 Long term (current) use of aspirin; Z79.899 Other long term (current) drug therapy
CPT/HCPCS: 96376 ×2; 96361 ×3; 96372 ×2; 96375; 96374; 99285; 36415; 97161; 97166; 80061; 80053 ×2; 82150; 83690 ×2; 85025 ×2; 81003; 83036; 74178; G0378 ×2; J2270; J2405 ×2; C9113 ×2; J1170 ×2; J1644 ×2

== ENCOUNTER 2022-12-22 12:52 | Emergency (ER) | payer MEDICARE, OTHER ==
[2022-12-22 13:01] VITALS: TEMP 98.8
[2022-12-22] MEDS ORDERED: ONDANSETRON ODT 4 MG TAB PO STA (13:39)
--- NOTE | 2022-12-22 14:09 | ED ---
General Adult HPI - General Chief complaint: Abdominal Pain Stated complaint: nausea Time Seen by Provider: 12/22/22 13:20 Source: patient, RN notes reviewed, old records reviewed Mode of arrival: ambulatory Limitations: no limitations - History of Present Illness Initial comments: This is a 52-year-old male who freely comes to the emergency department. Patient states he started having some abdominal cramping and a little bit of nausea. Patient denies any diarrhea patient denies any specific area of pain. Patient denies any vomiting. Patient denies any recent fever chills or cough per patient's chest pain or difficulty breathing. Patient denies any back pain. Patient denies any dysuria hematuria urinary frequency. - Related Data Home Medications Medication Instructions Recorded Confirmed Tamsulosin [Flomax] 0.4 mg PO HS@199904/12/20 12/17/22 Aspirin EC [Ecotrin Low Dose] 81 mg PO DAILY@0807/09/20 12/17/22 amLODIPine [Norvasc] 10 mg PO DAILY@0804/10/21 12/17/22 Atorvastatin [Lipitor] 10 mg PO HS@199901/19/22 12/17/22 Cetirizine HCl [Zyrtec] 10 mg PO DAILY@1700 01/19/22 12/17/22 lisinopriL [Zestril] 2.5 mg PO DAILY@0801/19/22 12/17/22 Ergocalciferol (Vitamin D2) 1,250 mcg PO FR 08/18/22 12/17/22 [Drisdol (50,000 Iu)] ARIPiprazole [Abilify] 7.5 mg PO DAILY@0812/17/22 12/17/22 Acetaminophen-Codeine 300-30mg 1 tab PO Q6H PRN 12/17/22 12/17/22 [Tylenol w/codeine #3] Diphenoxylate HCl/Atropine 1 tab PO QID@,,,12/17/22 12/17/22 [Lomotil 2.5-0.025 mg Tablet] Melatonin 5 mg PO HS@199912/17/22 12/17/22 Mirtazapine [Remeron] 30 mg PO HS@199912/17/22 12/17/22 Previous Rx's Medication Instructions Recorded Metoclopramide [Reglan] 10 mg PO Q6H PRN #15 tab 12/16/22 Ondansetron Odt [Zofran ODT] 4 mg PO Q8HR PRN #15 tab 12/16/22 Meloxicam [Mobic] 7.5 mg PO DAILY@0800 PRN #0 12/18/22 metFORMIN HCL ER [Glucophage XR] 1,000 mg PO BID@0800,2000 #120 tab 12/18/22 Allergies Allergy/AdvReac Type Severity Reaction Status Date / Time dicyclomine HCl [From Bentyl] Allergy Unknown Dyspnea Verified 12/17/22 15:09 latex Allergy Unknown Rash/Hives Verified 12/17/22 15:09 adhesive AdvReac Unknown Itching Verified 12/17/22 15:09 ciprofloxacin AdvReac Unknown Nausea Verified 12/17/22 15:09 Macrolide Antibiotics AdvReac Unknown Nausea Verified 12/17/22 15:09 sulfamethoxazole AdvReac Unknown Unknown Verified 12/17/22 15:09 [From Bactrim] trimethoprim [From Bactrim] AdvReac Unknown Unknown Verified 12/17/22 15:09 Review of Systems ROS Statement: Those systems with pertinent positive or pertinent negative responses have been documented in the HPI. ROS Other: All systems not noted in ROS Statement are negative. Past Medical History Past Medical History: Asthma, Chest Pain / Angina, COPD, CVA/TIA, Diabetes Mellitus, GERD/Reflux, Hearing Disorder / Deafness, Hyperlipidemia, Hypertension, Liver Disease, Osteoarthritis (OA), Pneumonia, Seizure Disorder, Sleep Apnea/CPAP/BIPAP Additional Past Medical History / Comment(s): states CVA at 35 yrs old, no weakness @ this time. states seizure at 35 yrs old., DDD- back & neck pain., carpal tunnel syndrome., hx. of cyst on kidney, uses cpap., states having abdominal pain with diarrhea and nausea ., Lives in a fci with 2 other people. Has a caregiver.n Has [employer] public guardian. History of Any Multi-Drug Resistant Organisms: None Reported Past Surgical History: Heart Catheterization, Orthopedic Surgery Additional Past Surgical History / Comment(s): Cysts removed, left thumb surgery, colonoscopy 08/24/2019. Skin tags removed from both eyes. Past Anesthesia/Blood Transfusion Reactions: Motion Sickness, Postoperative Nausea & Vomiting (PONV) Past Psychological History: Anxiety, Bipolar, Depression, Schizophrenia Smoking Status: Current every day smoker Past Alcohol Use History: None Reported Past Drug Use History: None Reported - Past Family History Brother(s) Family Medical History: Diabetes Mellitus Additional Family Medical History / Comment(s): Patient has 2 brothers. One from complications from diabetes. The second is alive with diabetes. Sister(s) Family Medical History: Cancer Additional Family Medical History / Comment(s): Patient has one sister with breast cancer. Patient does not have any children. Father Family Medical History: Cancer Additional Family Medical History / Comment(s): Father in his 40s or 50s from colon cancer. Mother Family Medical History: Cancer Additional Family Medical History / Comment(s): Mother at age 68 from lung cancer. General Exam - General Exam Comments Initial Comments: GENERAL: Patient is well-developed and well-nourished. Patient is nontoxic and well- hydrated and is in no acute distress. ENT: Neck is soft and supple. No significant lymphadenopathy is noted. Oropharynx is clear. Moist mucous membranes. Neck has full range of motion without eliciting any pain. EYES: The sclera were anicteric and conjunctiva were pink and moist. Extraocular movements were intact and pupils were equal round and reactive to light. Eyelids were unremarkable. PULMONARY: Unlabored respirations. Good breath sounds bilaterally. No audible rales rhonchi or wheezing was noted. CARDIOVASCULAR: There is a regular rate and rhythm without any murmurs gallops or rubs. ABDOMEN: Soft and nontender with normal bowel sounds. No area of tenderness could be palpated. SKIN: Skin is clear with no lesions or rashes and otherwise unremarkable. NEUROLOGIC: Patient is alert and oriented x3. Cranial nerves II through XII are grossly intact. Motor and sensory are also intact. Normal speech, volume and content. Symmetrical smile. MUSCULOSKELETAL: Normal extremities with adequate strength and full range of motion. LYMPHATICS: No significant lymphadenopathy is noted PSYCHIATRIC: Normal psychiatric evaluation. Limitations: no limitations Course Vital Signs 12/22/22 12:58 Temperature 98.8 F Pulse Rate 89 Respiratory 20 Rate Blood Pressure 121/78 O2 Sat by Pulse 98 Oximetry Medical Decision Making - Medical Decision Making Was pt. sent in by a medical professional or institution (, PA, PERSONNEL REPRESENTATIVE, urgent care, hospital, or custodial...) When possible be specific @ -No Did you speak to anyone other than the patient for history (EMS, parent, family, police, friend...)? What history was obtained from this source @ -No Did you review nursing and triage notes (agree or disagree)? Why? @ -I reviewed and agree with nursing and triage notes Were old charts reviewed (outside hosp., previous admission, EMS record, old EKG, old radiological studies, urgent care reports/EKG's, custodial records)? Report findings @ -I reviewed prior lab work from prior charts on this patient Differential Diagnosis (chest pain, altered mental status, abdominal pain women, abdominal pain men, vaginal bleeding, weakness, fever, dyspnea, syncope, headache, dizziness, GI bleed, back pain, seizure, CVA, palpatations, mental health, musculoskeletal)? @ -Differential Abdominal Pain Men: Appendicitis, cholecystitis, diverticulosis, ischemic bowel, pancreatitis, hepatitis, UTI, gastroenteritis, AAA, incarcerated hernia, bowel obstruction, constipation, inflammatory bowel, hepatitis, peptic ulcer disease, splenic infarction, perforated viscus, testicular torsion, this is not meant to be an all-inclusive list EKG interpreted by me (3pts min.). @ -As above X-rays interpreted by me (1pt min.). @ -KUB shows no acute abnormality CT interpreted by me (1pt min.). @ -None done U/S interpreted by me (1pt. min.). @ -None done What testing was considered but not performed or refused? (CT, X-rays, U/S, labs)? Why? @ -None What meds were considered but not given or refused? Why? @ -None Did you discuss the management of the patient with other professionals (professionals i.e. , PA, PERSONNEL REPRESENTATIVE, lab, RT, psych nurse, director of social work, fiscal agent, teacher, aoc director combat operations officer, spring encaser)? Give summary @ -No Was smoking cessation discussed for >3mins.? @ -No Was critical care preformed (if so, how long)? @ -No Were there social determinants of health that impacted care today? How? (Homelessness, low income, unemployed, alcoholism, drug addiction, transportation, low edu. Level, literacy, decrease access to med. care, detention, rehab)? @ -No Was there de-escalation of care discussed even if they declined (Discuss DNR or withdrawal of care, Hospice)? DNR status @ -No What co-morbidities impacted this encounter? (DM, HTN, Smoking, COPD, CAD, Cancer, CVA, ARF, Chemo, Hep., AIDS, mental health diagnosis, sleep apnea, morbid obesity)? @ -None] Was patient admitted / discharged? Hospital course, mention meds given and route, prescriptions, significant lab abnormalities, going to OR and other pertinent info. @ -Was given Zofran for the nausea and felt considerably better. KUB showednegative findings patient had no abdominal tenderness Undiagnosed new problem with uncertain prognosis? @ -No Drug Therapy requiring intensive monitoring for toxicity (Heparin, Nitro, Insulin, Cardizem)? @ -No Were any procedures done? @ -No Diagnosis/symptom? @ -Nausea Acute, or Chronic, or Acute on Chronic? @ -Acute Uncomplicated (without systemic symptoms) or Complicated (systemic symptoms)? @ -Uncomplicated Side effects of treatment? @ -No Exacerbation, Progression, or Severe Exacerbation? @ -No Poses a threat to life or bodily function? How? (Chest pain, [place], NV, pneumonia, PE, COPD, DKA, ARF, appy, cholecystitis, CVA, Diverticulitis, Homicidal, Suicidal, threat to staff... and all critical care pts) @ -No Disposition Clinical Impression: Nausea Disposition: HOME SELF-CARE Condition: Good Instructions (If sedation given, give patient instructions): Acute Nausea and V omiting (ED) Is patient prescribed a controlled substance at d/c from ED?: No Referrals: Ramya Saul MD [Primary Care Provider] - 1-2 days Time of Disposition: 14:16
[2022-12-22] MEDS ORDERED: ONDANSETRON 4 MG ODT STARTER PACK 2 TAB BTL PO STA (14:18)
[2022-12-22] MEDS ORDERED: FAMOTIDINE 20 MG TAB PO STA (14:20)
--- NOTE | 2022-12-22 14:21 | XR ---
EXAMINATION TYPE: XR KUB DATE OF EXAM: 12/22/2022 2:13 PM INDICATION: Patient age:Male; 52 years old; Reason for study: Nausea; COMPARISON: 07/09/2020 TECHNIQUE: One radiographic view of the abdomen was obtained. FINDINGS: The bowel gas pattern is nonspecific without dilated loops of small or large bowel. There i s no evidence for organomegaly or pneumoperitoneum. The osseous structures are intact. Fecal materi al and gas are demonstrated throughout the colon and rectum. Suspected left upper quadrant splenic pseudocyst with peripheral desiccation. Surgical clips in the l ow pelvis. Left pelvic calcification. IMPRESSION: Nonspecific bowel gas pattern without radiographic evidence for acute process.
[2022-12-22 14:55] VITALS: BP 116/85; PULSE 72; RESP 18
== END 2022-12-22 14:55 | disposition home or self-care (01) ==
LOC: EC 12:52
DX: R11.0 Nausea (principal); I10 Essential (primary) hypertension; J44.9 Chronic obstructive pulmonary disease, unspecified; G47.30 Sleep apnea, unspecified; E11.9 Type 2 diabetes mellitus without complications; E78.5 Hyperlipidemia, unspecified; F31.9 Bipolar disorder, unspecified; F41.9 Anxiety disorder, unspecified; K21.9 Gastro-esophageal reflux disease without esophagitis; M19.90 Unspecified osteoarthritis, unspecified site; F17.200 Nicotine dependence, unspecified, uncomplicated; Z79.82 Long term (current) use of aspirin; Z79.899 Other long term (current) drug therapy; Z88.1 Allergy status to other antibiotic agents; Z88.2 Allergy status to sulfonamides; Z91.040 Latex allergy status; Z88.8 Allergy status to other drugs, medicaments and biological substances
CPT/HCPCS: 74018; 99284; S0119

== ENCOUNTER 2022-12-23 21:50 | Emergency (ER) | payer MEDICARE, OTHER ==
[2022-12-23 22:45] VITALS: TEMP 99
[2022-12-24] MEDS ORDERED: SODIUM CHLORIDE 0.9% 1,000 ML IV STA (01:42)
[2022-12-24] MEDS ORDERED: KETOROLAC 15 MG/ML 1 ML VIAL IVP STA (01:42)
[2022-12-24] MEDS ORDERED: ONDANSETRON 4 MG/2 ML VIAL IVP STA (01:42)
[2022-12-24 02:00] VITALS: RESP 16
[2022-12-24 03:23] LABS: Basophils % (A) 0 %; Eosinophils # (A) 0.5 k/uL (0-0.7); Eosinophils % (A) 4 %; HCT 51.5 % (39.0-53.0); HGB 18.1 gm/dL (13.0-17.5); Lymphocytes # (A) 1.9 k/uL (1.0-4.8); Lymphocytes % (A) 18 %; MCH 30.7 pg (25.0-35.0); MCHC 35.2 g/dL (31.0-37.0); MCV 87.2 fL (80.0-100.0); Mean Platelet Volume 7.8; Monocytes # (A) 0.6 k/uL (0-1.0); Monocytes % (A) 6 %; Neutrophils # (A) 7.2 k/uL (1.3-7.7); Neutrophils % (A) 69 %; Platelet Count 222 k/uL (150-450); RDW 13.2 % (11.5-15.5); WBC 10.4 k/uL (3.8-10.6)
[2022-12-24 03:32] LABS: ALT 51 U/L (4-49); AST 28 U/L (17-59); African American GFR (CKD) >90 (>60 ml/min/1.73 sqM); Albumin 4.7 g/dL (3.5-5.0); Alkaline Phosphatase 90 U/L (38-126); Amylase 109 U/L (30-110); Anion Gap 10 mmol/L; Blood Urea Nitrogen 14 mg/dL (9-20); Carbon Dioxide 22 mmol/L (22-30); Chloride 105 mmol/L (98-107); Glucose 156 mg/dL (74-99); Lipase 539 U/L (23-300); Non-African American GFR(CKD) >90 (>60 ml/min/1.73 sqM); Potassium 4.4 mmol/L (3.5-5.1); Sodium 137 mmol/L (137-145); Total Bilirubin 0.5 mg/dL (0.2-1.3); Total Protein 7.2 g/dL (6.3-8.2)
--- NOTE | 2022-12-24 04:04 | ED ---
Abdominal Pain HPI - General Chief Complaint: Abdominal Pain Stated Complaint: abd pain, vomiting Time Seen by Provider: 12/24/22 01:34 Source: patient, RN notes reviewed, old records reviewed Mode of arrival: wheelchair Limitations: no limitations - History of Present Illness Initial Comments: This is a 52-year-old male known to this emergency department. Patient Dese for evaluation of abdominal pain, history of abdominal pain multiple ER visits for abdominal pain history of pancreatitis. Mild nausea and vomiting no significant active vomiting no fevers no other complaints no travel history no sick contacts. Patient again does have recent hospitalization for same MD Complaint: abdominal pain -: days(s) Location: diffuse, periumbilical, epigastric, suprapubic Radiation: epigastric, suprapubic Migration to: no migration Severity: moderate Severity scale (1-10): 5 Quality: sharp Consistency: constant Improves With: nothing Worsens With: nothing Associated Symptoms: nausea, vomiting Treatments Prior to Arrival: other (0) - Related Data Home Medications Medication Instructions Recorded Confirmed Tamsulosin [Flomax] 0.4 mg PO HS@199904/12/20 12/17/22 Aspirin EC [Ecotrin Low Dose] 81 mg PO DAILY@0807/09/20 12/17/22 amLODIPine [Norvasc] 10 mg PO DAILY@79904/10/21 12/17/22 Atorvastatin [Lipitor] 10 mg PO HS@199901/19/22 12/17/22 Cetirizine HCl [Zyrtec] 10 mg PO DAILY@17001/19/22 12/17/22 lisinopriL [Zestril] 2.5 mg PO DAILY@79901/19/22 12/17/22 Ergocalciferol (Vitamin D2) 1,250 mcg PO FR 08/18/22 12/17/22 [Drisdol (50,000 Iu)] ARIPiprazole [Abilify] 7.5 mg PO DAILY@79912/17/22 12/17/22 Acetaminophen-Codeine 300-30mg 1 tab PO Q6H PRN 12/17/22 12/17/22 [Tylenol w/codeine #3] Diphenoxylate HCl/Atropine 1 tab PO QID@08,12,17,20 06/22/23 06/22/23 [Lomotil 2.5-0.025 mg Tablet] Melatonin 5 mg PO HS@199912/17/22 12/17/22 Mirtazapine [Remeron] 30 mg PO HS@199912/17/22 12/17/22 Previous Rx's Medication Instructions Recorded Metoclopramide [Reglan] 10 mg PO Q6H PRN #15 tab 12/16/22 Ondansetron Odt [Zofran ODT] 4 mg PO Q8HR PRN #15 tab 12/16/22 Meloxicam [Mobic] 7.5 mg PO DAILY@0800 PRN #0 12/18/22 metFORMIN HCL ER [Glucophage XR] 1,000 mg PO BID@0800,1999 #120 tab 12/18/22 Allergies Allergy/AdvReac Type Severity Reaction Status Date / Time dicyclomine HCl [From Bentyl] Allergy Unknown Dyspnea Verified 12/23/22 22:43 latex Allergy Unknown Rash/Hives Verified 12/23/22 22:43 adhesive AdvReac Unknown Itching Verified 12/23/22 22:43 ciprofloxacin AdvReac Unknown Nausea Verified 12/23/22 22:43 Macrolide Antibiotics AdvReac Unknown Nausea Verified 12/23/22 22:43 sulfamethoxazole AdvReac Unknown Unknown Verified 12/23/22 22:43 [From Bactrim] trimethoprim [From Bactrim] AdvReac Unknown Unknown Verified 12/23/22 22:43 Review of Systems ROS Statement: Those systems with pertinent positive or pertinent negative responses have been documented in the HPI. ROS Other: All systems not noted in ROS Statement are negative. Past Medical History Past Medical History: Asthma, Chest Pain / Angina, COPD, CVA/TIA, Diabetes Sandra litus, GERD/Reflux, Hearing Disorder / Deafness, Hyperlipidemia, Hypertension, Liver Disease, Osteoarthritis (OA), Pneumonia, Seizure Disorder, Sleep Apnea/CPAP/BIPAP Additional Past Medical History / Comment(s): states CVA at 35 yrs old, no weakness @ this time. states seizure at 35 yrs old., DDD- back & neck pain., carpal tunnel syndrome., hx. of cyst on kidney, uses cpap., states having abdominal pain with diarrhea and nausea ., Lives in a usp with 2 other people. Has a caregiver.n Has [employer] public guardian. History of Any Multi-Drug Resistant Organisms: None Reported Past Surgical History: Heart Catheterization, Orthopedic Surgery Additional Past Surgical History / Comment(s): Cysts removed, left thumb surgery, colonoscopy 08/24/2019. Skin tags removed from both eyes. Past Anesthesia/Blood Transfusion Reactions: Motion Sickness, Postoperative Nausea & Vomiting (PONV) Past Psychological History: Anxiety, Bipolar, Depression, Schizophrenia Smoking Status: Current every day smoker Past Alcohol Use History: None Reported Past Drug Use History: None Reported - Past Family History Brother(s) Family Medical History: Diabetes Mellitus Additional Family Medical History / Comment(s): Patient has 2 brothers. One from complications from diabetes. The second is alive with diabetes. Sister(s) Family Medical History: Cancer Additional Family Medical History / Comment(s): Patient has one sister with breast cancer. Patient does not have any children. Father Family Medical History: Cancer Additional Family Medical History / Comment(s): Father in his 40s or 50s from colon cancer. Mother Family Medical History: Cancer Additional Family Medical History / Comment(s): Mother at age 68 from lung cancer. General Exam Limitations: no limitations General appearance: alert, in no apparent distress Head exam: Present: atraumatic, normocephalic, normal inspection Eye exam: Present: normal appearance, PERRL, EOMI. Absent: scleral icterus, conjunctival injection, periorbital swelling ENT exam: Present: normal exam, mucous membranes moist Neck exam: Present: normal inspection. Absent: tenderness, meningismus, lymphadenopathy Respiratory exam: Present: normal lung sounds bilaterally. Absent: respiratory distress, wheezes, rales, rhonchi, stridor Cardiovascular Exam: Present: regular rate, normal rhythm, normal heart sounds. Absent: systolic murmur, diastolic murmur, rubs, gallop, clicks GI/Abdominal exam: Present: soft, normal bowel sounds. Absent: distended, tenderness, guarding, rebound, rigid Extremities exam: Present: normal inspection, full ROM, normal capillary refill. Absent: tenderness, pedal edema, joint swelling, calf tenderness Back exam: Present: normal inspection Neurological exam: Present: alert, oriented X3, CN II-XII intact Psychiatric exam: Present: normal affect, normal mood Skin exam: Present: warm, dry, intact, normal color. Absent: rash Course Vital Signs 06/28/23 06/29/23 06/29/23 22:43 01:59 04:40 Temperature 99 F Pulse Rate 74 60 76 Respiratory 18 16 16 Rate Blood Pressure 137/88 107/82 O2 Sat by Pulse 97 99 96 Oximetry - Reevaluation(s) Reevaluation #1: 12/24/22 04:03 Medical records reviewed Reevaluation #2: Patient symptoms are improved Reevaluation #3: Patient informed results questions answered Reevaluation #4: 12/24/22 04:04 Was pt. sent in by a medical professional or institution? @ -no Did you speak to anyone other than the patient for history? @ -no Did you review nursing and triage notes? @ -agree Were old charts reviewed? @ -yes Differential Diagnosis? @ -prior EKG interpreted by me (3pts min.)? @ -no X-rays interpreted by me (1pt min.)? @ -yes CT interpreted by me (1pt min.)? @ -no U/S interpreted by me (1pt. min.)? @ -no What testing was considered but not performed? (CT, X-rays, U/S, labs)? Why? @ -no What meds were considered but not given? Why? @ -no Did you discuss the management of the patient with other professionals? @ -no Did you reconcile home meds? @ -no Was smoking cessation discussed for >3mins.? @ -no Was critical care preformed (if so, how long)? @ -no Were there social determinants of health that impacted care today? How? (Homelessness, low income, unemployed, alcoholism, drug addiction, transportation, low edu. Level, literacy, decrease access to med. care, [facility], rehab)? @ -no Was there de-escalation of care discussed even if they declined? (Discuss DNR or withdrawal of care, Hospice)? @ -no What co-morbidities impacted this encounter? (DM, HTN, Smoking, COPD, CAD, Cancer, CVA, Hep., AIDS, mental health diagnosis, sleep apnea, morbid obesity)? @ -none Was patient admitted / discharged? @ -52 male to the emergency department for reevaluation abdominal pain. Patient does have recurrent pancreatitis although he feels improved currently feels well like to be discharged home ultrasound stay in hospital. No other Discharged Undiagnosed new problem with uncertain prognosis? @ -no Drug Therapy requiring intensive monitoring for toxicity (Heparin, Nitro, Insulin, Cardizem)? @ -no Were any procedures done? @ -no Diagnosis/symptom? @ -Abdominal pain with pancreatitis Acute, or Chronic, or Acute on Chronic? @ -acute Uncomplicated (without systemic symptoms) or Complicated (systemic symptoms)? @ -complicated Side effects of treatment? @ -no Exacerbation, Progression, or Severe Exacerbation] @ -no Poses a threat to life or bodily function? @ -yes severe pancreatitis Medical Decision Making - Medical Decision Making 52 male to the emergency department for reevaluation abdominal pain. Patient does have recurrent pancreatitis although he feels improved currently feels well like to be discharged home ultrasound stay in hospital. No other - Lab Data Result diagrams: 12/24/22 01:56 12/24/22 01:56 Lab Results 12/24/22 12/24/22 Range/Units 01:56 01:56 WBC 10.4 (3.8-10.6) k/uL RBC 5.90 (4.30-5.90) m/uL Hgb 18.1 H (13.0-17.5) gm/dL Hct 51.5 (39.0-53.0) % MCV 87.2 (80.0-100.0) fL MCH 30.7 (25.0-35.0) pg MCHC 35.2 (31.0-37.0) g/dL RDW 13.2 (11.5-15.5) % Plt Count 222 (150-450) k/uL MPV 7.8 Neutrophils % 69 % Lymphocytes % 18 % Monocytes % 6 % Eosinophils % 4 % Basophils % 0 % Neutrophils # 7.2 (1.3-7.7) k/uL Lymphocytes # 1.9 (1.0-4.8) k/uL Monocytes # 0.6 (0-1.0) k/uL Eosinophils # 0.5 (0-0.7) k/uL Basophils # 0.0 (0-0.2) k/uL Sodium 137 (137-145) mmol/L Potassium 4.4 (3.5-5.1) mmol/L Chloride 105 (98-107) mmol/L Carbon Dioxide 22 (22-30) mmol/L Anion Gap 10 mmol/L BUN 14 (9-20) mg/dL Creatinine 0.71 (0.66-1.25) mg/dL Est GFR (CKD-EPI)AfAm >90 (>60 ml/min/1.73 sqM) Est GFR (CKD-EPI)NonAf >90 (>60 ml/min/1.73 sqM) Glucose 156 H (74-99) mg/dL Calcium 10.0 (8.4-10.2) mg/dL Total Bilirubin 0.5 (0.2-1.3) mg/dL AST 28 (17-59) U/L ALT 51 H (4-49) U/L Alkaline Phosphatase 90 (38-126) U/L Total Protein 7.2 (6.3-8.2) g/dL Albumin 4.7 (3.5-5.0) g/dL Amylase 109 (30-110) U/L Lipase 539 H (23-300) U/L - Radiology Data Radiology results: report reviewed (X-ray KUB is negative for acute disease), image reviewed Disposition Clinical Impression: Abdominal pain, Pancreatitis, Nausea Disposition: HOME SELF-CARE Condition: Good Instructions (If sedation given, give patient instructions): Abdominal Pain (ED) Is patient prescribed a controlled substance at d/c from ED?: No Referrals: Ramya Saul MD [Primary Care Provider] - 1-2 days Time of Disposition: 04:00
[2022-12-24 04:41] VITALS: BP 107/82; PULSE 76
--- NOTE | 2022-12-24 05:39 | XR ---
EXAMINATION TYPE: XR KUB DATE OF EXAM: 12/24/2022 2:07 AM CLINICAL HISTORY: Abdominal pain and nausea. TECHNIQUE: Two Upright KUB images of the abdomen are obtained. COMPARISON: Abdominal x-ray 2 days earlier FINDINGS: Scattered gas is seen in non-distended small bowel and large bowel loops including rectum. Stable 5.9 cm ring calcified lesion left upper quadrant consistent with splenic pseudocyst. No free a ir. The lung bases are clear and the osseous structures are intact. IMPRESSION: Overall nonobstructive bowel gas pattern redemonstrated. No significant change from prior.
== END 2022-12-24 04:50 | disposition home or self-care (01) ==
LOC: EC 21:50
DX: K85.90 Acute pancreatitis without necrosis or infection, unspecified (principal); E11.9 Type 2 diabetes mellitus without complications; I10 Essential (primary) hypertension; J44.9 Chronic obstructive pulmonary disease, unspecified; E78.5 Hyperlipidemia, unspecified; K21.9 Gastro-esophageal reflux disease without esophagitis; F31.9 Bipolar disorder, unspecified; F20.9 Schizophrenia, unspecified; F41.9 Anxiety disorder, unspecified; F17.200 Nicotine dependence, unspecified, uncomplicated; Z79.82 Long term (current) use of aspirin; Z79.899 Other long term (current) drug therapy; Z88.1 Allergy status to other antibiotic agents; Z88.2 Allergy status to sulfonamides; Z88.8 Allergy status to other drugs, medicaments and biological substances; Z91.040 Latex allergy status; Z91.09 Other allergy status, other than to drugs and biological substances; Z86.73 Personal history of transient ischemic attack (TIA), and cerebral infarction without residual deficits
CPT/HCPCS: 36415; 80053; 82150; 83690; 85025; 74018; 99285; 96374; 96375; 96361; J2405; J1885

== ENCOUNTER → 2022-12-23 | Outpatient (CLI) | payer MEDICARE, OTHER ==
--- NOTE | 2022-12-23 13:55 | P.SLEEP ---
History of Present Illness DATE: 12/23/2022 CONSULTATION/NEW PATIENT EVALUATION HISTORY OF PRESENT ILLNESS/SLEEP-WAKE EVALUATION: 52-year-old gentleman had been evaluated in the sleep center for obstructive sleep apnea hypopnea syndrome. Patient has been diagnosed with obstructive sleep apnea in our institution many years ago. SLEEP SCHEDULE: Usually sleep schedule is from 8 PM until 8 AM. FALLING ASLEEP: Patient has difficulties with the falling asleep, highest TV set and bedroom. DURING SLEEP: Patient usually sleeps on the back and side position with loud snoring and multiple awakenings from sleep up to 5 times. He does not use CPAP therapy the present time. No history of hypnogogical hallucinations, sleep paralysis, or cataplexy. DURING THE DAY/WAKE STATE: In the morning patient wake up tired, has difficulties to put pretension, has problems with concentration, depression and anxiety, claustrophobia. [place] sleepiness scale is 5. Usually patient doesn't take naps. Patient drinks up to 4 cups of coffee and up to 5 drinks of Paps. PAST MEDICAL HISTORY: Hypertension, acid reflux, ALLERGY, BPH, depression, diabetes mellitus, hyperlipidemia. PAST SURGICAL HISTORY: Left leg cyst removed. MEDICATIONS: Amlodipine 10 mg once a day, lisinopril 25 mg once a day, omeprazole 40 mg once a day, cetirizine 10 mg once a day, aspirin 81 mg once a day, Flomax 0.4 mg once a day, meloxicam 7.5 mg once a day, mirtazapine 30 mg once a day, metformin 500 mg twice a day, atorvastatin 10 mg once a day, aripiprazole 5 mg 1.5 tablets once a day. SOCIAL HISTORY: Patient continued to smoke for more than 30 years one pack a day, alcohol consumption at the present time. FAMILY HISTORY: Heart problems, cancer. REVIEW OF SYSTEMS: Loud snoring, multiple awakenings from sleep. No fevers. No double vision. No recent chest pain. No shortness of breath. No abdominal pain. No bleeding episodes. No blood in urine. No seizure episodes. PHYSICAL EXAMINATION: GENERAL: A pleasant patient without any distress. VITAL SIGNS: BP 121/83 , HR 75 , RR 16 , weight 182.6 pounds, height 5 foot 6.5 inches, body mass index 28.9 . HEENT: PERRLA, EOMI. Evaluation of oropharynx showed tongue protrudes midline, low position of soft palate Mallampati 4. NECK: Supple. No JVD. Thyroid is not palpable. 17 inches in circumference. LUNGS: Clear to percussion and to auscultation. Good air exchange. No wheezing or rhonchi. HEART: S1, S2 regular. No murmurs, gallops or rubs. ABDOMEN: Soft and nontender. Bowel sounds are present. No organomegaly appreciated. EXTREMITIES: No clubbing or cyanosis. PRINCIPAL GIFTS OFFICER: Awake, alert, and oriented x3. Cranial nerves 2 to 7 intact. There is no fasciculation or atrophy noted. No focal deficits observed. ASSESSMENT: 1. Obstructive sleep apnea hypopnea syndrome for many years. For about 1 year patient to does not use CPAP therapy. Extremely low position of soft palate Mallampati 4, wide neck 17 inches in circumference. 2. Hypertension. 3. Restless leg symptoms. 4. Acid reflux ALLERGY. 5 diabetes mellitus. 6 . BPH. 7. Hyperlipidemia. 8. Depression. PLAN: 1. CPAP titration for evaluation of effective CPAP pressure at the present time and to feet patient with the comfortable mask. 2. Patient should restart treatment with CPAP. I will see patient in about 1 months after treatment will be restarted to evaluate clinical response on treatment, compliance with treatment and make any necessary adjustments. 3. Preferable position during sleep on the side. 4. No driving if patient feels any sleepiness. Patient is aware of civil and criminal liability for unsafe driving. 5. Sleep hygiene with regular sleep time for at least 7.5-8 hours. 6. Watching weight. Thank you very much for referring this patient for consultation. Sincerely, Marco A Pulido MD, PhD, FAASM. Diplomat of [employer], Sleep Medicine Board by [employer] [facility] Past Medical History Past Medical History: Asthma, Chest Pain / Angina, COPD, CVA/TIA, Diabetes Mellitus, GERD/Reflux, Hearing Disorder / Deafness, Hyperlipidemia, Hypertension, Liver Disease, Osteoarthritis (OA), Pneumonia, Seizure Disorder, S leep Apnea/CPAP/BIPAP Additional Past Medical History / Comment(s): states CVA at 35 yrs old, no weakness @ this time. states seizure at 35 yrs old., DDD- back & neck pain., c arpal tunnel syndrome., hx. of cyst on kidney, uses cpap., states having abdominal pain with diarrhea and nausea ., Lives in a custodial with 2 other people. Has a caregiver.n Has [employer] public guardian. History of Any Multi-Drug Resistant Organisms: None Reported Past Surgical History: Heart Catheterization, Orthopedic Surgery Additional Past Surgical History / Comment(s): Cysts removed, left thumb surgery, colonoscopy 08/24/2019. Skin tags removed from both eyes. Past Anesthesia/Blood Transfusion Reactions: Motion Sickness, Postoperative Nausea & Vomiting (PONV) Past Psychological History: Anxiety, Bipolar, Depression, Schizophrenia Smoking Status: Current every day smoker Past Alcohol Use History: None Reported Past Drug Use History: None Reported - Past Family History Brother(s) Family Medical History: Diabetes Mellitus Additional Family Medical History / Comment(s): Patient has 2 brothers. One from complications from diabetes. The second is alive with diabetes. Sister(s) Family Medical History: Cancer Additional Family Medical History / Comment(s): Patient has one sister with breast cancer. Patient does not have any children. Father Family Medical History: Cancer Additional Family Medical History / Comment(s): Father in his 40s or 50s from colon cancer. Mother Family Medical History: Cancer Additional Family Medical History / Comment(s): Mother at age 68 from lung cancer. Medications and Allergies Home Medications Medication Instructions Recorded Confirmed Type Tamsulosin [Flomax] 0.4 mg PO HS@199904/12/20 12/17/22 History Aspirin EC [Ecotrin Low Dose] 81 mg PO DAILY@0807/09/20 12/17/22 History amLODIPine [Norvasc] 10 mg PO DAILY@0804/10/21 12/17/22 History Atorvastatin [Lipitor] 10 mg PO HS@199901/19/22 12/17/22 History Cetirizine HCl [Zyrtec] 10 mg PO DAILY@169901/19/22 12/17/22 History lisinopriL [Zestril] 2.5 mg PO DAILY@0801/19/22 12/17/22 History Ergocalciferol (Vitamin D2) 1,250 mcg PO FR 08/18/22 12/17/22 History [Drisdol (50,000 Iu)] Metoclopramide [Reglan] 10 mg PO Q6H PRN #15 tab 12/16/22 12/17/22 Rx Ondansetron Odt [Zofran ODT] 4 mg PO Q8HR PRN #15 tab 12/16/22 12/17/22 Rx ARIPiprazole [Abilify] 7.5 mg PO DAILY@0800 12/17/22 12/17/22 History Acetaminophen-Codeine 300-30mg 1 tab PO Q6H PRN 12/17/22 12/17/22 History [Tylenol w/codeine #3] Diphenoxylate HCl/Atropine 1 tab PO QID@08,12,,20 12/17/22 12/17/22 History [Lomotil 2.5-0.025 mg Tablet] Melatonin 5 mg PO HS@199912/17/22 12/17/22 History Mirtazapine [Remeron] 30 mg PO HS@199912/17/22 12/17/22 History Meloxicam [Mobic] 7.5 mg PO DAILY@0800 PRN #0 12/18/22 12/17/22 Rx metFORMIN HCL ER [Glucophage XR] 1,000 mg PO BID@08,1999 #120 tab 12/18/22 Rx Allergies Allergy/AdvReac Type Severity Reaction Status Date / Time dicyclomine HCl [From Bentyl] Allergy Unknown Dyspnea Verified 12/17/22 15:09 latex Allergy Unknown Rash/Hives Verified 12/17/22 15:09 adhesive AdvReac Unknown Itching Verified 12/17/22 15:09 ciprofloxacin AdvReac Unknown Nausea Verified 12/17/22 15:09 Macrolide Antibiotics AdvReac Unknown Nausea Verified 12/17/22 15:09 sulfamethoxazole AdvReac Unknown Unknown Verified 12/17/22 15:09 [From Bactrim] trimethoprim [From Bactrim] AdvReac Unknown Unknown Verified 12/17/22 15:09 Sleep Note - Sleep Note Sleep Note: Temperature: Pulse Rate: Respiratory Rate: Blood Pressure: SpO2: Height: Weight: BMI: Neck Circumference:
== END ==
LOC: 3 N SLEEP 12:52
PROVIDERS: ATTEND Internal Medicine
DX: G47.33 Obstructive sleep apnea (adult) (pediatric) (principal); I10 Essential (primary) hypertension; G25.81 Restless legs syndrome; E11.9 Type 2 diabetes mellitus without complications; E78.5 Hyperlipidemia, unspecified; F32.A Depression, unspecified; K21.9 Gastro-esophageal reflux disease without esophagitis; Z99.89 Dependence on other enabling machines and devices; F17.200 Nicotine dependence, unspecified, uncomplicated; N40.0 Benign prostatic hyperplasia without lower urinary tract symptoms; Z79.899 Other long term (current) drug therapy; Z79.84 Long term (current) use of oral hypoglycemic drugs; Z91.048 Other nonmedicinal substance allergy status; Z88.2 Allergy status to sulfonamides; Z88.1 Allergy status to other antibiotic agents; Z91.040 Latex allergy status; Z88.3 Allergy status to other anti-infective agents
CPT/HCPCS: 99211

== ENCOUNTER 2022-12-31 23:08 | Emergency (ER) | payer MEDICARE, OTHER ==
[2022-12-31 23:13] VITALS: BP 119/77; PULSE 74; RESP 18; TEMP 98.1
[2022-12-31 23:45] LABS: Glucose,Whole Blood 225 mg/dL (70-110)
--- NOTE | 2023-01-01 00:21 | ED ---
Abdominal Pain HPI - General Chief Complaint: Abdominal Pain Stated Complaint: High Blood Sugar,ABD Pain Time Seen by Provider: 12/31/22 23:53 Source: EMS Mode of arrival: EMS Limitations: no limitations - History of Present Illness Initial Comments: 52-year-old male presenting with chief complaint of diffuse abdominal discomfort. Patient states that he has had this pain ongoing for about 2 months. States that it comes and goes. States that he has had a difficult time passing a bowel movement recently. Last bowel movement was yesterday and was very small amount. He is also complaining of right ear discomfort. No fever, chills, nausea, vomiting, chest pain, difficulty breathing, hematochezia, melena, dysuria, hematuria, back pain. - Related Data Home Medications Medication Instructions Recorded Confirmed Tamsulosin [Flomax] 0.4 mg PO HS@199904/12/20 12/17/22 Aspirin EC [Ecotrin Low Dose] 81 mg PO DAILY@0807/09/20 12/17/22 amLODIPine [Norvasc] 10 mg PO DAILY@79904/10/21 12/17/22 Atorvastatin [Lipitor] 10 mg PO HS@199901/19/22 12/17/22 Cetirizine HCl [Zyrtec] 10 mg PO DAILY@1700 01/19/22 12/17/22 lisinopriL [Zestril] 2.5 mg PO DAILY@0801/19/22 12/17/22 Ergocalciferol (Vitamin D2) 1,250 mcg PO FR 08/18/22 12/17/22 [Drisdol (50,000 Iu)] ARIPiprazole [Abilify] 7.5 mg PO DAILY@79912/17/22 12/17/22 Acetaminophen-Codeine 300-30mg 1 tab PO Q6H PRN 12/17/22 12/17/22 [Tylenol w/codeine #3] Diphenoxylate HCl/Atropine 1 tab PO QID@08,12,17,20 12/17/22 12/17/22 [Lomotil 2.5-0.025 mg Tablet] Melatonin 5 mg PO HS@199912/17/22 12/17/22 Mirtazapine [Remeron] 30 mg PO HS@199912/17/22 12/17/22 Previous Rx's Medication Instructions Recorded Metoclopramide [Reglan] 10 mg PO Q6H PRN #15 tab 12/16/22 Ondansetron Odt [Zofran ODT] 4 mg PO Q8HR PRN #15 tab 12/16/22 Meloxicam [Mobic] 7.5 mg PO DAILY@0800 PRN #0 12/18/22 metFORMIN HCL ER [Glucophage XR] 1,000 mg PO BID@0800,2000 #120 tab 12/18/22 Allergies Allergy/AdvReac Type Severity Reaction Status Date / Time dicyclomine HCl [From Bentyl] Allergy Unknown Dyspnea Verified 12/31/22 23:13 latex Allergy Unknown Rash/Hives Verified 12/31/22 23:13 adhesive AdvReac Unknown Itching Verified 12/31/22 23:13 ciprofloxacin AdvReac Unknown Nausea Verified 12/31/22 23:13 Macrolide Antibiotics AdvReac Unknown Nausea Verified 12/31/22 23:13 sulfamethoxazole AdvReac Unknown Unknown Verified 12/31/22 23:13 [From Bactrim] trimethoprim [From Bactrim] AdvReac Unknown Unknown Verified 12/31/22 23:13 Review of Systems ROS Statement: Those systems with pertinent positive or pertinent negative responses have been documented in the HPI. ROS Other: All systems not noted in ROS Statement are negative. Past Medical History Past Medical History: Asthma, Chest Pain / Angina, COPD, CVA/TIA, Diabetes Mellitus, GERD/Reflux, Hearing Disorder / Deafness, Hyperlipidemia, Hypertension, Liver Disease, Osteoarthritis (OA), Pneumonia, Seizure Disorder, Sleep Apnea/CPAP/BIPAP Additional Past Medical History / Comment(s): states CVA at 35 yrs old, no weakness @ this time. states seizure at 35 yrs old., DDD- back & neck pain., carpal tunnel syndrome., hx. of cyst on kidney, uses cpap., states having abdominal pain with diarrhea and nausea ., Lives in a assisted with 2 other p eople. Has a caregiver.n Has [employer] public guardian. History of Any Multi-Drug Resistant Organisms: None Reported Past Surgical History: Heart Catheterization, Orthopedic Surgery Additional Past Surgical History / Comment(s): Cysts removed, left thumb surgery, colonoscopy 08/24/2019. Skin tags removed from both eyes. Past Anesthesia/Blood Transfusion Reactions: Motion Sickness, Postoperative Nausea & Vomiting (PONV) Past Psychological History: Anxiety, Bipolar, Depression, Schizophrenia Smoking Status: Current every day smoker Past Alcohol Use History: None Reported Past Drug Use History: None Reported - Past Family History Brother(s) Family Medical History: Diabetes Mellitus Additional Family Medical History / Comment(s): Patient has 2 brothers. One from complications from diabetes. The second is alive with diabetes. Sister(s) Family Medical History: Cancer Additional Family Medical History / Comment(s): Patient has one sister with breast cancer. Patient does not have any children. Father Family Medical History: Cancer Additional Family Medical History / Comment(s): Father in his 40s or 50s from colon cancer. Mother Family Medical History: Cancer Additional Family Medical History / Comment(s): Mother at age 68 from lung cancer. General Exam Limitations: no limitations General appearance: alert, in no apparent distress Head exam: Present: atraumatic, normocephalic, normal inspection Eye exam: Present: normal appearance Neck exam: Present: normal inspection, full ROM Respiratory exam: Present: normal lung sounds bilaterally. Absent: respiratory distress, wheezes, rales, rhonchi, stridor Cardiovascular Exam: Present: regular rate, normal rhythm, normal heart sounds. Absent: systolic murmur, diastolic murmur, rubs, gallop, clicks GI/Abdominal exam: Present: soft. Absent: distended, tenderness, guarding, rebound, rigid Neurological exam: Present: alert, oriented X3, CN II-XII intact Psychiatric exam: Present: normal affect, normal mood Skin exam: Present: warm, dry, intact, normal color. Absent: rash Course Vital Signs 12/31/22 23:10 Temperature 98.1 F Pulse Rate 74 Respiratory 18 Rate Blood Pressure 119/77 O2 Sat by Pulse 96 Oximetry Medical Decision Making - Medical Decision Making Was pt. sent in by a medical professional or institution (, PA, PLANTING MATERIAL REMOVER, urgent care, hospital, or jail...) When possible be specific @ -No Did you speak to anyone other than the patient for history (EMS, parent, family, police, friend...)? What history was obtained from this source @ -No Did you review nursing and triage notes (agree or disagree)? Why? @ -I reviewed and agree with nursing and triage notes Were old charts reviewed (outside hosp., previous admission, EMS record, old EKG, old radiological studies, urgent care reports/EKG's, jail records)? Report findings @ -No old charts were reviewed Differential Diagnosis (chest pain, altered mental status, abdominal pain women, abdominal pain men, vaginal bleeding, weakness, fever, dyspnea, syncope, headache, dizziness, GI bleed, back pain, seizure, CVA, palpatations, mental health, musculoskeletal)? @ -MDM Differential Abdominal Pain Men: Appendicitis, cholecystitis, diverticulosis, ischemic bowel, pancreatitis, hepatitis, UTI, gastroenteritis, AAA, incarcerated hernia, bowel obstruction, constipation, inflammatory bowel, hepatitis, peptic ulcer disease, splenic infarction, perforated viscus, testicular torsion... This is not meant to be an all-inclusive list EKG interpreted by me (3pts min.). @ -As above X-rays interpreted by me (1pt min.). @ -KUB x-ray shows no bowel obstruction or ileus. On my interpretation there appears to be a degree of constipation CT interpreted by me (1pt min.). @ -None done U/S interpreted by me (1pt. min.). @ -None done What testing was considered but not performed or refused? (CT, X-rays, U/S, labs)? Why? @ -None What meds were considered but not given or refused? Why? @ -None Did you discuss the management of the patient with other professionals (professionals i.e. , PA, PLANTING MATERIAL REMOVER, lab, RT, psych nurse, social service agency director, business services sales agent, teacher, project control officer, nurse outreach case manager)? Give summary @ -No Was smoking cessation discussed for >3mins.? @ -No Was critical care preformed (if so, how long)? @ -No Were there social determinants of health that impacted care today? How? (Homelessness, low income, unemployed, alcoholism, drug addiction, transport ation, low edu. Level, literacy, decrease access to med. care, fdc, rehab)? @ -No Was there de-escalation of care discussed even if they declined (Discuss DNR or withdrawal of care, Hospice)? DNR status @ -No What co-morbidities impacted this encounter? (DM, HTN, Smoking, COPD, CAD, Cancer, CVA, ARF, Chemo, Hep., AIDS, mental health diagnosis, sleep apnea, morbid obesity)? @ -None Was patient admitted / discharged? Hospital course, mention meds given and route, prescriptions, significant lab abnormalities, going to OR and other pertinent info. @ -52-year-old male presenting with chief complaint of diffuse abdominal discomfort. Has been ongoing for 2 months. Patient has had a difficult time passing a bowel movement recently. He is also concerned that he took his metformin and doesn't believe his blood sugar is going down this evening. No vomiting, chest pain, difficulty breathing. Physical examination is unremarkable. Blood glucose is 225. KUB x-ray shows some constipation with no evidence of bowel obstruction or ileus. Patient is educated on constipation and supportive management at home, he is provided with a suppository for home. Educated on sugar control. Follow-up with PCP. Report back to ER with any new or worsening symptoms. Discussed return parameters and answered all questions. Patient conveyed verbal understanding and agreed to the plan. I discussed this case in detail with my attending Dr. Vizcarra Undiagnosed new problem with uncertain prognosis? @ -No Drug Therapy requiring intensive monitoring for toxicity (Heparin, Nitro, Insulin, Cardizem)? @ -No Were any procedures done? @ -No Diagnosis/symptom? @ -Constipation, hyperglycemia Acute, or Chronic, or Acute on Chronic? @ -Acute Uncomplicated (without systemic symptoms) or Complicated (systemic symptoms)? @ -Uncomplicated Side effects of treatment? @ -No Exacerbation, Progression, or Severe Exacerbation? @ -No Poses a threat to life or bodily function? How? (Chest pain, USA, HI, pneumonia, PE, COPD, DKA, ARF, appy, cholecystitis, CVA, Diverticulitis, Homicidal, Suicidal, threat to staff... and all critical care pts) @ -No - Lab Data Lab Results 12/31/22 Range/Units 23:44 POC Glucose (mg/dL) 225 H (70-110) mg/dL POC Glu Eyelet Punch Operator ID Paige Connolly Disposition Clinical Impression: Constipation Disposition: HOME SELF-CARE Condition: Good Instructions (If sedation given, give patient instructions): Constipation (ED), High Fiber Diet (ED) Additional Instructions: Follow-up with PCP. Report back to ER with any new or worsening symptoms. Is patient prescribed a controlled substance at d/c from ED?: No Referrals: None,Stated [Primary Care Provider] - 1-2 days Time of Disposition: 02:04
[2023-01-01] MEDS ORDERED: KETOROLAC 15 MG/ML 1 ML VIAL IM STA (02:04)
[2023-01-01] MEDS ORDERED: GLYCERIN ADULT SUPPOSITORY 1 EACH RECTAL STA (02:04)
--- NOTE | 2023-01-01 02:40 | XR ---
EXAM: XR Abdomen, 1 View CLINICAL HISTORY: Constipation TECHNIQUE: Frontal supine view of the abdomen/pelvis. COMPARISON: 12/24/2022. FINDINGS: Gastrointestinal tract: No bowel obstruction or ileus. Moderate stool throughout the colon. No significant air-fluid levels. No free air. Pelvic calcifications. Bones/joints: Degenerative changes of the lumbar spine. IMPRESSION: No bowel obstruction or ileus.
== END 2023-01-01 02:26 | disposition home or self-care (01) ==
LOC: EC 23:08
DX: K59.00 Constipation, unspecified (principal); J44.9 Chronic obstructive pulmonary disease, unspecified; E11.9 Type 2 diabetes mellitus without complications; I10 Essential (primary) hypertension; E78.5 Hyperlipidemia, unspecified; M19.90 Unspecified osteoarthritis, unspecified site; F41.9 Anxiety disorder, unspecified; F31.9 Bipolar disorder, unspecified; G47.30 Sleep apnea, unspecified; F17.200 Nicotine dependence, unspecified, uncomplicated; Z79.82 Long term (current) use of aspirin; Z79.899 Other long term (current) drug therapy; Z91.040 Latex allergy status; Z88.2 Allergy status to sulfonamides; Z88.8 Allergy status to other drugs, medicaments and biological substances
CPT/HCPCS: 36415; 74018; 96372; 99284

== ENCOUNTER 2023-01-02 16:05 | Emergency (ER) | payer MEDICARE, OTHER ==
[2023-01-02 16:20] VITALS: RESP 18; TEMP 98
--- NOTE | 2023-01-02 16:55 | ED ---
General Adult HPI - General Chief complaint: Skin/Abscess/Foreign Body Stated complaint: lump on back of neck Time Seen by Provider: 01/02/23 16:23 Source: patient, RN notes reviewed Mode of arrival: ambulatory Limitations: no limitations - History of Present Illness Initial comments: 52-year-old male with a past medical history of diabetes mellitus presents to the emergency department with a chief complaint of lump on the back of his neck. Patient reports that he noticed a lump a week ago. He was seen and evaluated here yesterday however forgot to mention at this visit. He is complaining of accompanying diarrhea which she attributes to taking metformin. Denies any fever, chills, cough, nausea, vomiting, melena, hematochezia. He has been taking his medications as prescribed. Denies any injury or trauma. - Related Data Home Medications Medication Instructions Recorded Confirmed Tamsulosin [Flomax] 0.4 mg PO HS@199904/12/20 12/17/22 Aspirin EC [Ecotrin Low Dose] 81 mg PO DAILY@79907/09/20 12/17/22 amLODIPine [Norvasc] 10 mg PO DAILY@79904/10/21 12/17/22 Atorvastatin [Lipitor] 10 mg PO HS@199901/19/22 12/17/22 Cetirizine HCl [Zyrtec] 10 mg PO DAILY@17001/19/22 12/17/22 lisinopriL [Zestril] 2.5 mg PO DAILY@0801/19/22 12/17/22 Ergocalciferol (Vitamin D2) 1,250 mcg PO FR 08/18/22 12/17/22 [Drisdol (50,000 Iu)] ARIPiprazole [Abilify] 7.5 mg PO DAILY@0812/17/22 12/17/22 Acetaminophen-Codeine 300-30mg 1 tab PO Q6H PRN 12/17/22 12/17/22 [Tylenol w/codeine #3] Diphenoxylate HCl/Atropine 1 tab PO QID@08,12,17,20 12/17/22 12/17/22 [Lomotil 2.5-0.025 mg Tablet] Melatonin 5 mg PO HS@199912/17/22 12/17/22 Mirtazapine [Remeron] 30 mg PO HS@199912/17/22 12/17/22 Previous Rx's Medication Instructions Recorded Metoclopramide [Reglan] 10 mg PO Q6H PRN #15 tab 12/16/22 Ondansetron Odt [Zofran ODT] 4 mg PO Q8HR PRN #15 tab 12/16/22 Meloxicam [Mobic] 7.5 mg PO DAILY@0800 PRN #0 12/18/22 metFORMIN HCL ER [Glucophage XR] 1,000 mg PO BID@0800,1999 #120 tab 12/18/22 Allergies Allergy/AdvReac Type Severity Reaction Status Date / Time dicyclomine HCl [From Bentyl] Allergy Unknown Dyspnea Verified 01/02/23 16:20 latex Allergy Unknown Rash/Hives Verified 01/02/23 16:20 adhesive AdvReac Unknown Itching Verified 01/02/23 16:20 ciprofloxacin AdvReac Unknown Nausea Verified 01/02/23 16:20 Macrolide Antibiotics AdvReac Unknown Nausea Verified 01/02/23 16:20 sulfamethoxazole AdvReac Unknown Unknown Verified 01/02/23 16:20 [From Bactrim] trimethoprim [From Bactrim] AdvReac Unknown Unknown Verified 01/02/23 16:20 Review of Systems ROS Statement: Those systems with pertinent positive or pertinent negative responses have been documented in the HPI. ROS Other: All systems not noted in ROS Statement are negative. Past Medical History Past Medical History: Asthma, Chest Pain / Angina, COPD, CVA/TIA, Diabetes Mellitus, GERD/Reflux, Hearing Disorder / Deafness, Hyperlipidemia, Hypertension, Liver Disease, Osteoarthritis (OA), Pneumonia, Seizure Disorder, Sleep Apnea/CPAP/BIPAP Additional Past Medical History / Comment(s): states CVA at 35 yrs old, no weakness @ this time. states seizure at 35 yrs old., DDD- back & neck pain., carpal tunnel syndrome., hx. of cyst on kidney, uses cpap., states having abdominal pain with diarrhea and nausea ., Lives in a custodial with 2 other people. Has a caregiver.n Has [employer] public guardian. History of Any Multi-Drug Resistant Organisms: None Reported Past Surgical History: Heart Catheterization, Orthopedic Surgery Additional Past Surgical History / Comment(s): Cysts removed, left thumb surgery, colonoscopy 08/24/2019. Skin tags removed from both eyes. Past Anesthesia/Blood Transfusion Reactions: Motion Sickness, Postoperative Nausea & Vomiting (PONV) Past Psychological History: Anxiety, Bipolar, Depression, Schizophrenia Smoking Status: Current every day smoker Past Alcohol Use History: None Reported Past Drug Use History: None Reported - Past Family History Brother(s) Family Medical History: Diabetes Mellitus Additional Family Medical History / Comment(s): Patient has 2 brothers. One from complications from diabetes. The second is alive with diabetes. Sister(s) Family Medical History: Cancer Additional Family Medical History / Comment(s): Patient has one sister with breast cancer. Patient does not have any children. Father Family Medical History: Cancer Additional Family Medical History / Comment(s): Father in his 40s or 50s from colon cancer. Mother Family Medical History: Cancer Additional Family Medical History / Comment(s): Mother at age 68 from lung cancer. General Exam - General Exam Comments Initial Comments: General: Alert, in no acute distress Head: atraumatic normocephalic. Eyes PERRL, EOMI intact, mucous membranes moist, 2 cm circular, mobile, nontender in the right occipital region Respiratory: Lungs clear to auscultation bilaterally Cardiovascular: Heart rate regular rate and rhythm Abdominal: Soft without guarding or rebound Extremities: Normal inspection with full range of motion and normal capillary refill Neuroogic: alert and oriented 3, CN II-XII intact, able to ambulate with steady gait Skin: warm dry and intact with normal color Limitations: no limitations Course Vital Signs 01/02/23 01/02/23 16:18 17:48 Temperature 98.0 F Pulse Rate 88 78 Respiratory 18 18 Rate Blood Pressure 121/81 140/90 O2 Sat by Pulse 97 96 Oximetry Medical Decision Making - Medical Decision Making Was pt. sent in by a medical professional or institution (, PA, TRANSPORTATION MECHANIC, urgent care, hospital, or halfway...) When possible be specific @ -[No] Did you speak to anyone other than the patient for history (EMS, parent, family, police, friend...)? What history was obtained from this source @ -[No] Did you review nursing and triage notes (agree or disagree)? Why? @ -[I reviewed and agree with nursing and triage notes] Were old charts reviewed (outside hosp., previous admission, EMS record, old EKG, old radiological studies, urgent care reports/EKG's, halfway records)? Report findings @ -[No old charts were reviewed] Differential Diagnosis (chest pain, altered mental status, abdominal pain women, abdominal pain men, vaginal bleeding, weakness, fever, dyspnea, syncope, headache, dizziness, GI bleed, back pain, seizure, CVA, palpatations, mental health, musculoskeletal)? @ -[not applicable] EKG interpreted by me (3pts min.). @ -[As above] X-rays interpreted by me (1pt min.). @ -[None done] CT interpreted by me (1pt min.). @ -[None done] U/S interpreted by me (1pt. min.). @ -[None done] What testing was considered but not performed or refused? (CT, X-rays, U/S, labs)? Why? @ -[None] What meds were considered but not given or refused? Why? @ -[None] Did you discuss the management of the patient with other professionals (professionals i.e. , PA, TRANSPORTATION MECHANIC, lab, RT, psych nurse, pediatric social worker, recruiting coordinator, teacher, sheriffs officer, rn case manager)? Give summary @ -[No] Was smoking cessation discussed for >3mins.? @ -[No] Was critical care preformed (if so, how long)? @ -[No] Were there social determinants of health that impacted care today? How? (Homelessness, low income, unemployed, alcoholism, drug addiction, transportation, low edu. Level, literacy, decrease access to med. care, skilled nursing, rehab)? @ -[No] Was there de-escalation of care discussed even if they declined (Discuss DNR or withdrawal of care, Hospice)? DNR status @ -[No] What co-morbidities impacted this encounter? (DM, HTN, Smoking, COPD, CAD, Cancer, CVA, ARF, Chemo, Hep., AIDS, mental health diagnosis, sleep apnea, mo rbid obesity)? @ -[None] Was patient admitted / discharged? Hospital course, mention meds given and route, prescriptions, significant lab abnormalities, going to OR and other pertinent info. @ -Discharged. This is a 52-year-old male presents the emergency department with a lump on neck. Patient had a thorough history and physical exam performed while in the ED. Physical exam is essentially unremarkable, heart rate regular rate and rhythm, lungs clear to auscultation bilaterally, abdomen soft and nontender. Patient's vital signs stable. There is a 2 cm circular, mobile, nontender lesion in the right occipital region. I discussed the results in detail with the patient verbalized understanding all questions were addressed. The agreeable to plan with close follow-up with his PCP in 1-2 days. Return precautions were discussed at length. Patient discharged in stable condition. Case discussed with GRACE Lechuga who agrees with plan of care Undiagnosed new problem with uncertain prognosis? @ -[No] Drug Therapy requiring intensive monitoring for toxicity (Heparin, Nitro, Insulin, Cardizem)? @ -[No] Were any procedures done? @ -[No] Diagnosis/symptom? @ Lump on neck Acute, or Chronic, or Acute on Chronic? @ -Acute Uncomplicated (without systemic symptoms) or Complicated (systemic symptoms)? @ -Uncomplicated Side effects of treatment? @ -[No] Exacerbation, Progression, or Severe Exacerbation? @ -[No] Poses a threat to life or bodily function? How? (Chest pain, USA, MS, pneumonia, PE, COPD, DKA, ARF, appy, cholecystitis, CVA, Diverticulitis, Homicidal, Suicidal, threat to staff... and all critical care pts) @ -low likelihood Disposition Clinical Impression: Lump on neck Disposition: HOME SELF-CARE Condition: Stable Additional Instructions: Please return to the emergency department if symptoms worsen or persist Is patient prescribed a controlled substance at d/c from ED?: No Referrals: Ramya Saul MD [Primary Care Provider] - 1-2 days Time of Disposition: 16:55
[2023-01-02] MEDS ORDERED: LOPERAMIDE 2 MG CAP PO STA (17:09)
[2023-01-02 17:49] VITALS: BP 140/90; PULSE 78
== END 2023-01-02 17:53 | disposition home or self-care (01) ==
LOC: EC 16:05
DX: R22.1 Localized swelling, mass and lump, neck (principal); E11.9 Type 2 diabetes mellitus without complications; J44.9 Chronic obstructive pulmonary disease, unspecified; I10 Essential (primary) hypertension; F41.9 Anxiety disorder, unspecified; F31.9 Bipolar disorder, unspecified; F20.9 Schizophrenia, unspecified; F17.200 Nicotine dependence, unspecified, uncomplicated; Z79.82 Long term (current) use of aspirin; Z79.899 Other long term (current) drug therapy; Z88.8 Allergy status to other drugs, medicaments and biological substances; Z91.040 Latex allergy status; Z91.09 Other allergy status, other than to drugs and biological substances; Z88.1 Allergy status to other antibiotic agents; Z88.2 Allergy status to sulfonamides
CPT/HCPCS: 99283

== ENCOUNTER 2023-01-08 22:14 | Emergency (ER) | payer MEDICARE, OTHER ==
[2023-01-08 22:19] VITALS: BP 104/74; PULSE 70; RESP 18; TEMP 98.4
[2023-01-08] MEDS ORDERED: MAG HYDROX/AL HYDROX/SIMETH 30 ML, HYOSCYAMINE ELIXIR 10 ML, LIDOCAINE 2% GLYDO JELLY 1... PO STA ×3 (23:51)
--- NOTE | 2023-01-09 00:29 | ED ---
General Adult HPI - General Chief complaint: Psychiatric Symptoms Stated complaint: Suicidial, burning in stomach Time Seen by Provider: 01/08/23 22:20 Source: patient Mode of arrival: ambulatory Limitations: no limitations - History of Present Illness Initial comments: 52-year-old male with multiple medical conditions who presents to the emergency department reporting suicidal ideations. Patient's reports that he has had chronic heartburn and because of that it has caused him to be distressed and suicidal. He has been taking his home reflux medications without any improvement in his symptoms. States that he is suicidal but has no plan. No attempt at harming himself. He does her side in a senior living. No homicidal ideations. No hallucinations. No drug or alcohol use. He denies any chest pain or shortness of breath. No hemoptysis. No other alleviating, precipitating or modifying factors - Related Data Home Medications Medication Instructions Recorded Confirmed Tamsulosin [Flomax] 0.4 mg PO HS@199904/12/20 12/17/22 Aspirin EC [Ecotrin Low Dose] 81 mg PO DAILY@0807/09/20 12/17/22 amLODIPine [Norvasc] 10 mg PO DAILY@0804/10/21 12/17/22 Atorvastatin [Lipitor] 10 mg PO HS@199901/19/22 12/17/22 Cetirizine HCl [Zyrtec] 10 mg PO DAILY@1700 01/19/22 12/17/22 lisinopriL [Zestril] 2.5 mg PO DAILY@0801/19/22 12/17/22 Ergocalciferol (Vitamin D2) 1,250 mcg PO FR 08/18/22 12/17/22 [Drisdol (50,000 Iu)] ARIPiprazole [Abilify] 7.5 mg PO DAILY@0812/17/22 12/17/22 Acetaminophen-Codeine 300-30mg 1 tab PO Q6H PRN 12/17/22 12/17/22 [Tylenol w/codeine #3] Diphenoxylate HCl/Atropine 1 tab PO QID@08,12,17,20 12/17/22 12/17/22 [Lomotil 2.5-0.025 mg Tablet] Melatonin 5 mg PO HS@199912/17/22 12/17/22 Mirtazapine [Remeron] 30 mg PO HS@199912/17/22 12/17/22 Previous Rx's Medication Instructions Recorded Metoclopramide [Reglan] 10 mg PO Q6H PRN #15 tab 12/16/22 Ondansetron Odt [Zofran ODT] 4 mg PO Q8HR PRN #15 tab 12/16/22 Meloxicam [Mobic] 7.5 mg PO DAILY@0800 PRN #0 12/18/22 metFORMIN HCL ER [Glucophage XR] 1,000 mg PO BID@0800,1999 #120 tab 12/18/22 Allergies Allergy/AdvReac Type Severity Reaction Status Date / Time dicyclomine HCl [From Bentyl] Allergy Unknown Dyspnea Verified 01/08/23 22:19 latex Allergy Unknown Rash/Hives Verified 01/08/23 22:19 adhesive AdvReac Unknown Itching Verified 01/08/23 22:19 ciprofloxacin AdvReac Unknown Nausea Verified 01/08/23 22:19 Macrolide Antibiotics AdvReac Unknown Nausea Verified 01/08/23 22:19 sulfamethoxazole AdvReac Unknown Unknown Verified 01/08/23 22:19 [From Bactrim] trimethoprim [From Bactrim] AdvReac Unknown Unknown Verified 01/08/23 22:19 Review of Systems ROS Statement: Those systems with pertinent positive or pertinent negative responses have been documented in the HPI. ROS Other: All systems not noted in ROS Statement are negative. Past Medical History Past Medical History: Asthma, Chest Pain / Angina, COPD, CVA/TIA, Diabetes Mellitus, GERD/Reflux, Hearing Disorder / Deafness, Hyperlipidemia, Hypertension, Liver Disease, Osteoarthritis (OA), Pneumonia, Seizure Disorder, Sleep Apnea/CPAP/BIPAP Additional Past Medical History / Comment(s): states CVA at 35 yrs old, no weakness @ this time. states seizure at 35 yrs old., DDD- back & neck pain., carpal tunnel syndrome., hx. of cyst on kidney, uses cpap., states having abdominal pain with diarrhea and nausea ., Lives in a senior living with 2 other people. Has a caregiver.n Has [employer] public guardian. History of Any Multi-Drug Resistant Organisms: None Reported Past Surgical History: Heart Catheterization, Orthopedic Surgery Additional Past Surgical History / Comment(s): Cysts removed, left thumb surgery, colonoscopy 08/24/2019. Skin tags removed from both eyes. Past Anesthesia/Blood Transfusion Reactions: Motion Sickness, Postoperative Nausea & Vomiting (PONV) Past Psychological History: Anxiety, Bipolar, Depression, Schizophrenia Smoking Status: Current every day smoker Past Alcohol Use History: Occasional Past Drug Use History: None Reported - Past Family History Brother(s) Family Medical History: Diabetes Mellitus Additional Family Medical History / Comment(s): Patient has 2 brothers. One from complications from diabetes. The second is alive with diabetes. Sister(s) Family Medical History: Cancer Additional Family Medical History / Comment(s): Patient has one sister with breast cancer. Patient does not have any children. Father Family Medical History: Cancer Additional Family Medical History / Comment(s): Father in his 40s or 50s from colon cancer. Mother Family Medical History: Cancer Additional Family Medical History / Comment(s): Mother at age 68 from lung cancer. General Exam Limitations: no limitations General appearance: alert, in no apparent distress Head exam: Present: atraumatic, normocephalic, normal inspection Eye exam: Present: normal appearance, PERRL, EOMI. Absent: scleral icterus, conjunctival injection, periorbital swelling ENT exam: Present: normal exam, mucous membranes moist Neck exam: Present: normal inspection. Absent: tenderness, meningismus, lymphadenopathy Respiratory exam: Present: normal lung sounds bilaterally. Absent: respiratory distress, wheezes, rales, rhonchi, stridor Cardiovascular Exam: Present: regular rate, normal rhythm, normal heart sounds. Absent: systolic murmur, diastolic murmur, rubs, gallop, clicks GI/Abdominal exam: Present: soft, normal bowel sounds. Absent: distended, tenderness, guarding, rebound, rigid Extremities exam: Present: normal inspection, full ROM, normal capillary refill. Absent: tenderness, pedal edema, joint swelling, calf tenderness Back exam: Present: normal inspection Neurological exam: Present: alert, oriented X3, CN II-XII intact Psychiatric exam: Present: normal affect, normal mood Skin exam: Present: warm, dry, intact, normal color. Absent: rash Course Vital Signs 01/08/23 22:16 Temperature 98.4 F Pulse Rate 70 Respiratory 18 Rate Blood Pressure 104/74 O2 Sat by Pulse 98 Oximetry Medical Decision Making - Medical Decision Making Was pt. sent in by a medical professional or institution (SEAN Cordova, APPAREL SALES ASSOCIATE, urgent care, hospital, or jail...) When possible be specific @ -No Did you speak to anyone other than the patient for history (EMS, parent, family, police, friend...)? What history was obtained from this source @ -No Did you review nursing and triage notes (agree or disagree)? Why? @ -I reviewed and agree with nursing and triage notes Were old charts reviewed (outside hosp., previous admission, EMS record, old EKG, old radiological studies, urgent care reports/EKG's, jail records)? Report findings @ -Old charts were reviewed. Patient has been seen in the emergency room several times for same complaint Differential Diagnosis (chest pain, altered mental status, abdominal pain women, abdominal pain men, vaginal bleeding, weakness, fever, dyspnea, syncope, headache, dizziness, GI bleed, back pain, seizure, CVA, palpatations, mental health, musculoskeletal)? Differential Abdominal Pain Men: Appendicitis, cholecystitis, diverticulosis, ischemic bowel, pancreatitis, hepatitis, UTI, gastroenteritis, AAA, incarcerated hernia, bowel obstruction, constipation, inflammatory bowel, hepatitis, peptic ulcer disease, splenic infarction, perforated viscus, testicular torsion, this is not meant to be an all-inclusive list EKG interpreted by me (3pts min.). @ -Yes and demonstrates sinus bradycardia with rate of 55. AL interval 144. QRS 100. QTC of 391. No acute ST segment elevations or depressions X-rays interpreted by me (1pt min.). @ -Yes and demonstrates no acute process CT interpreted by me (1pt min.). @ -None done U/S interpreted by me (1pt. min.). @ -None done What testing was considered but not performed or refused? (CT, X-rays, U/S, labs)? Why? @ -None What meds were considered but not given or refused? Why? @ -None Did you discuss the management of the patient with other professionals (professionals i.e. SEAN Cordova, APPAREL SALES ASSOCIATE, lab, RT, psych nurse, social staff worker, featheredger and reducer machine, teacher, earth science technical officer, pillowcase cutter)? Give summary @ -Spoke with the EPS in regards to the patient's symptoms Was smoking cessation discussed for >3mins.? @ -No Was critical care preformed (if so, how long)? @ -No Were there social determinants of health that impacted care today? How? (Homelessness, low income, unemployed, alcoholism, drug addiction, transportation, low edu. Level, literacy, decrease access to med. care, skilled nursing, rehab)? @ -No Was there de-escalation of care discussed even if they declined (Discuss DNR or withdrawal of care, Hospice)? DNR status @ -No What co-morbidities impacted this encounter? (DM, HTN, Smoking, COPD, CAD, Cancer, CVA, ARF, Chemo, Hep., AIDS, mental health diagnosis, sleep apnea, morbid obesity)? @ -Hypertension, hyperlipidemia, GERD Was patient admitted / discharged? Hospital course, mention meds given and r oute, prescriptions, significant lab abnormalities, going to OR and other pertinent info. @ -Upon arrival patient was placed into room 8. A thorough history and physical exam was performed. IV access was established and laboratory studies were conducted. Patient was provided with a GI cocktail. He is evaluated by EPS. He reports to them that he got in an argument with a roommate, became frustrated and therefore came up to the hospital stating that he was suicidal so he could get away from his roommate. Patient is cleared from them. Guardian is aware and agreeable to the patient returning to the senior living. He is instructed to call his GI doctor for further workup. Return for any new or worsening symptoms. Patient was agreeable to the plan is discharge in stable condition Undiagnosed new problem with uncertain prognosis? @ -No Drug Therapy requiring intensive monitoring for toxicity (Heparin, Nitro, I nsulin, Cardizem)? @ -No Were any procedures done? @ -No Diagnosis/symptom? @ -Acute exacerbation of chronic reflux, acute depression, suicidal ideations Acute, or Chronic, or Acute on Chronic? @ -Acute on chronic Uncomplicated (without systemic symptoms) or Complicated (systemic symptoms)? @ -Complicated Side effects of treatment? @ -No Exacerbation, Progression, or Severe Exacerbation? @ -No Poses a threat to life or bodily function? How? (Chest pain, USA, CA, pneumonia, PE, COPD, DKA, ARF, appy, cholecystitis, CVA, Diverticulitis, Homicidal, Suicidal, threat to staff... and all critical care pts) @ -No - Lab Data Result diagrams: 01/09/23 00:15 01/09/23 00:15 Lab Results 01/09/23 01/09/23 01/09/23 Range/Units 00:15 00:15 00:15 WBC 8.3 (3.8-10.6) k/uL RBC 5.26 (4.30-5.90) m/uL Hgb 15.9 (13.0-17.5) gm/dL Hct 45.7 (39.0-53.0) % MCV 86.8 (80.0-100.0) fL MCH 30.1 (25.0-35.0) pg MCHC 34.7 (31.0-37.0) g/dL RDW 13.0 (11.5-15.5) % Plt Count 211 (150-450) k/uL MPV 8.0 Neutrophils % 66 % Lymphocytes % 22 % Monocytes % 5 % Eosinophils % 6 % Basophils % 0 % Neutrophils # 5.5 (1.3-7.7) k/uL Lymphocytes # 1.8 (1.0-4.8) k/uL Monocytes # 0.4 (0-1.0) k/uL Eosinophils # 0.5 (0-0.7) k/uL Basophils # 0.0 (0-0.2) k/uL Sodium 138 (137-145) mmol/L Potassium 4.1 (3.5-5.1) mmol/L Chloride 108 H (98-107) mmol/L Carbon Dioxide 20 L (22-30) mmol/L Anion Gap 10 mmol/L BUN 12 (9-20) mg/dL Creatinine 0.73 (0.66-1.25) mg/dL Est GFR (CKD-EPI)AfAm >90 (>60 ml/min/1.73 sqM) Est GFR (CKD-EPI)NonAf >90 (>60 ml/min/1.73 sqM) Glucose 186 H (74-99) mg/dL Calcium 9.1 (8.4-10.2) mg/dL Total Bilirubin 0.4 (0.2-1.3) mg/dL AST 24 (17-59) U/L ALT 45 (4-49) U/L Alkaline Phosphatase 99 (38-126) U/L Troponin I <0.012 (0.000-0.034) ng/mL Total Protein 6.7 (6.3-8.2) g/dL Albumin 4.3 (3.5-5.0) g/dL Lipase 878 H (23-300) U/L Disposition Clinical Impression: Suicidal ideation, Depression Disposition: HOME SELF-CARE Condition: Stable Instructions (If sedation given, give patient instructions): Depression (ED) Additional Instructions: Please follow-up with your primary care doctor. Return for any new or worsening symptoms Is patient prescribed a controlled substance at d/c from ED?: No Referrals: Ramya Saul MD [Primary Care Provider] - 1-2 days Time of Disposition: 01:06
[2023-01-09 00:44] LABS: Basophils % (A) 0 %; Eosinophils # (A) 0.5 k/uL (0-0.7); Eosinophils % (A) 6 %; HCT 45.7 % (39.0-53.0); HGB 15.9 gm/dL (13.0-17.5); Lymphocytes # (A) 1.8 k/uL (1.0-4.8); Lymphocytes % (A) 22 %; MCH 30.1 pg (25.0-35.0); MCHC 34.7 g/dL (31.0-37.0); MCV 86.8 fL (80.0-100.0); Monocytes # (A) 0.4 k/uL (0-1.0); Monocytes % (A) 5 %; Neutrophils # (A) 5.5 k/uL (1.3-7.7); Neutrophils % (A) 66 %; Platelet Count 211 k/uL (150-450); RBC 5.26 m/uL (4.30-5.90); WBC 8.3 k/uL (3.8-10.6)
[2023-01-09 00:47] LABS: ALT 45 U/L (4-49); AST 24 U/L (17-59); African American GFR (CKD) >90 (>60 ml/min/1.73 sqM); Albumin 4.3 g/dL (3.5-5.0); Alkaline Phosphatase 99 U/L (38-126); Anion Gap 10 mmol/L; Blood Urea Nitrogen 12 mg/dL (9-20); Calcium 9.1 mg/dL (8.4-10.2); Carbon Dioxide 20 mmol/L (22-30); Chloride 108 mmol/L (98-107); Glucose 186 mg/dL (74-99); Lipase 878 U/L (23-300); Non-African American GFR(CKD) >90 (>60 ml/min/1.73 sqM); Potassium 4.1 mmol/L (3.5-5.1); Sodium 138 mmol/L (137-145); Total Bilirubin 0.4 mg/dL (0.2-1.3); Total Protein 6.7 g/dL (6.3-8.2)
--- NOTE | 2023-01-09 04:30 | XR ---
EXAM: XR Abdomen, 1 View CLINICAL HISTORY: ITS.REASON XR Reason: abdominal pain TECHNIQUE: Frontal upright view of the abdomen/pelvis. COMPARISON: 01/01/23 FINDINGS: Gastrointestinal tract: Nonspecific bowel gas pattern. Moderate amount of stool throughout the colon. There is bowel gas in the rectum and sigmoid. No dilation. Bones/joints: Unremarkable. Soft tissues: Posterior surgical clips over the prostate. Other findings: 5.2 x 6 cm rounded rim calcification over left upper quadrant is again noted. IMPRESSION: No substantial change.
== END 2023-01-09 01:49 | disposition home or self-care (01) ==
LOC: EC 22:14
DX: R45.851 Suicidal ideations (principal); E11.9 Type 2 diabetes mellitus without complications; J44.9 Chronic obstructive pulmonary disease, unspecified; I10 Essential (primary) hypertension; G47.30 Sleep apnea, unspecified; M19.90 Unspecified osteoarthritis, unspecified site; K21.9 Gastro-esophageal reflux disease without esophagitis; E78.5 Hyperlipidemia, unspecified; F41.9 Anxiety disorder, unspecified; F31.9 Bipolar disorder, unspecified; F17.200 Nicotine dependence, unspecified, uncomplicated; Z86.73 Personal history of transient ischemic attack (TIA), and cerebral infarction without residual deficits; Z79.82 Long term (current) use of aspirin; Z79.1 Long term (current) use of non-steroidal anti-inflammatories (NSAID); Z79.84 Long term (current) use of oral hypoglycemic drugs; Z79.899 Other long term (current) drug therapy; Z80.0 Family history of malignant neoplasm of digestive organs; Z88.1 Allergy status to other antibiotic agents; Z88.2 Allergy status to sulfonamides; Z91.040 Latex allergy status; Z88.8 Allergy status to other drugs, medicaments and biological substances
CPT/HCPCS: 36415; 74018; 80053; 82075; 83690; 84484; 85025; 93005; 99285

== ENCOUNTER 2023-01-10 12:28 | Inpatient (IN) | payer MEDICARE, MEDICAID ==
--- NOTE | 2023-01-10 13:09 | ED ---
General Adult HPI - General Chief complaint: Psychiatric Symptoms Stated complaint: Suicidal Time Seen by Provider: 01/10/23 12:40 Source: patient, RN notes reviewed, old records reviewed Mode of arrival: ambulatory Limitations: no limitations - History of Present Illness Initial comments: This is a 52-year-old male who presents to the emergency department complaining that he suicidal. Patient states his been ongoing since Wednesday. Patient thinks she might need a medication adjustment. patient denies any physical complaints today. Patient denies any drug use or alcohol use. Patient denies any fever chills. Patient denies shortness of breath or difficulty breathing. - Related Data Home Medications Medication Instructions Recorded Confirmed Tamsulosin [Flomax] 0.4 mg PO HS@199904/12/20 12/17/22 Aspirin EC [Ecotrin Low Dose] 81 mg PO DAILY@0807/09/20 12/17/22 amLODIPine [Norvasc] 10 mg PO DAILY@0804/10/21 12/17/22 Atorvastatin [Lipitor] 10 mg PO HS@199901/19/22 12/17/22 Cetirizine HCl [Zyrtec] 10 mg PO DAILY@1700 01/19/22 12/17/22 lisinopriL [Zestril] 2.5 mg PO DAILY@0801/19/22 12/17/22 Ergocalciferol (Vitamin D2) 1,250 mcg PO FR 08/18/22 12/17/22 [Drisdol (50,000 Iu)] ARIPiprazole [Abilify] 7.5 mg PO DAILY@0812/17/22 12/17/22 Acetaminophen-Codeine 300-30mg 1 tab PO Q6H PRN 12/17/22 12/17/22 [Tylenol w/codeine #3] Diphenoxylate HCl/Atropine 1 tab PO QID@08,,,12/17/22 12/17/22 [Lomotil 2.5-0.025 mg Tablet] Melatonin 5 mg PO HS@199912/17/22 12/17/22 Mirtazapine [Remeron] 30 mg PO HS@199912/17/22 12/17/22 Previous Rx's Medication Instructions Recorded Metoclopramide [Reglan] 10 mg PO Q6H PRN #15 tab 12/16/22 Ondansetron Odt [Zofran ODT] 4 mg PO Q8HR PRN #15 tab 12/16/22 Meloxicam [Mobic] 7.5 mg PO DAILY@0800 PRN #0 12/18/22 metFORMIN HCL ER [Glucophage XR] 1,000 mg PO BID@0800,2000 #120 tab 12/18/22 Allergies Allergy/AdvReac Type Severity Reaction Status Date / Time dicyclomine HCl [From Bentyl] Allergy Unknown Dyspnea Verified 01/10/23 12:34 latex Allergy Unknown Rash/Hives Verified 01/10/23 12:34 adhesive AdvReac Unknown Itching Verified 01/10/23 12:34 ciprofloxacin AdvReac Unknown Nausea Verified 01/10/23 12:34 Macrolide Antibiotics AdvReac Unknown Nausea Verified 01/10/23 12:34 sulfamethoxazole AdvReac Unknown Unknown Verified 01/10/23 12:34 [From Bactrim] trimethoprim [From Bactrim] AdvReac Unknown Unknown Verified 01/10/23 12:34 Review of Systems ROS Statement: Those systems with pertinent positive or pertinent negative responses have been documented in the HPI. ROS Other: All systems not noted in ROS Statement are negative. Past Medical History Past Medical History: Asthma, Chest Pain / Angina, COPD, CVA/TIA, Diabetes Mellitus, GERD/Reflux, Hearing Disorder / Deafness, Hyperlipidemia, Hypertension, Liver Disease, Osteoarthritis (OA), Pneumonia, Seizure Disorder, Sleep Apnea/CPAP/BIPAP Additional Past Medical History / Comment(s): states CVA at 35 yrs old, no weakness @ this time. states seizure at 35 yrs old., DDD- back & neck pain., carpal tunnel syndrome., hx. of cyst on kidney, uses cpap., states having abdominal pain with diarrhea and nausea ., Lives in a [place] [facility] with 2 other people. Has a caregiver.n Has [employer] public guardian. History of Any Multi-Drug Resistant Organisms: None Reported Past Surgical History: Heart Catheterization, Orthopedic Surgery Additional Past Surgical History / Comment(s): Cysts removed, left thumb surgery, colonoscopy 08/24/2019. Skin tags removed from both eyes. Past Anesthesia/Blood Transfusion Reactions: Motion Sickness, Postoperative Nausea & Vomiting (PONV) Past Psychological History: Anxiety, Bipolar, Depression, Schizophrenia Smoking Status: Current every day smoker Past Alcohol Use History: Occasional Past Drug Use History: None Reported - Past Family History Brother(s) Family Medical History: Diabetes Mellitus Additional Family Medical History / Comment(s): Patient has 2 brothers. One from complications from diabetes. The second is alive with diabetes. Sister(s) Family Medical History: Cancer Additional Family Medical History / Comment(s): Patient has one sister with breast cancer. Patient does not have any children. Father Family Medical History: Cancer Additional Family Medical History / Comment(s): Father in his 40s or 50s from colon cancer. Mother Family Medical History: Cancer Additional Family Medical History / Comment(s): Mother at age 68 from lung cancer. General Exam - General Exam Comments Initial Comments: GENERAL: Patient is well-developed and well-nourished. Patient is nontoxic and well- hydrated and is in no acute distress. ENT: Neck is soft and supple. No significant lymphadenopathy is noted. Oropharynx is clear. Moist mucous membranes. Neck has full range of motion without eliciting any pain. EYES: The sclera were anicteric and conjunctiva were pink and moist. Extraocular movements were intact and pupils were equal round and reactive to light. Eyelids were unremarkable. PULMONARY: Unlabored respirations. Good breath sounds bilaterally. No audible rales rhonchi or wheezing was noted. CARDIOVASCULAR: There is a regular rate and rhythm without any murmurs gallops or rubs. ABDOMEN: Soft and nontender with normal bowel sounds. SKIN: Skin is clear with no lesions or rashes and otherwise unremarkable. NEUROLOGIC: Patient is alert and oriented x3. Cranial nerves II through XII are grossly intact. Motor and sensory are also intact. Normal speech, volume and content. Symmetrical smile. MUSCULOSKELETAL: Normal extremities with adequate strength and full range of motion. No lower extremity swelling or edema. No calf tenderness. LYMPHATICS: No significant lymphadenopathy is noted PSYCHIATRIC: Patient states she suicidal and has been so since Wednesday. Patient has no specific plan Limitations: no limitations Course Vital Signs 01/10/23 12:29 Temperature 97.8 F Pulse Rate 107 H Respiratory 20 Rate Blood Pressure 117/76 O2 Sat by Pulse 95 Oximetry Medical Decision Making - Medical Decision Making Was pt. sent in by a medical professional or institution (, PA, SINGER SONGWRITER, urgent care, hospital, or fpc...) When possible be specific @ -No Did you speak to anyone other than the patient for history (EMS, parent, family, police, friend...)? What history was obtained from this source @ -[No] Did you review nursing and triage notes (agree or disagree)? Why? @ -[I reviewed and agree with nursing and triage notes] Were old charts reviewed (outside hosp., previous admission, EMS record, old EKG, old radiological studies, urgent care reports/EKG's, fpc records)? Report findings @ -Prior charts were reviewed on this patient Differential Diagnosis (chest pain, altered mental status, abdominal pain women, abdominal pain men, vaginal bleeding, weakness, fever, dyspnea, syncope, h eadache, dizziness, GI bleed, back pain, seizure, CVA, palpatations, mental health, musculoskeletal)? @ -Differential Mental Health Depression, anxiety, bipolar, psychosis, schizophrenia, borderline personality, situational depression, adjustment disorder, behavioral disorder, brain tumor, malingering, substance abuse, encephalopathy, medication reaction, dementia, hypothyroidism, degenerative neurologic disorder, lupus.... This is not meant to be all-inclusive list EKG interpreted by me (3pts min.). @ -[As above] X-rays interpreted by me (1pt min.). @ -[None done] CT interpreted by me (1pt min.). @ -[None done] U/S interpreted by me (1pt. min.). @ -[None done] What testing was considered but not performed or refused? (CT, X-rays, U/S, labs)? Why? @ -[None] What meds were considered but not given or refused? Why? @ -[None] Did you discuss the management of the patient with other professionals (professionals i.e. , PA, SINGER SONGWRITER, lab, RT, psych nurse, social human services assistants, environmental health technologist, teacher, vessel traffic officer, telephonic nurse case manager)? Give summary @ -EPS evaluated the patient and determined the patient needed to be admitted Was smoking cessation discussed for >3mins.? @ -[No] Was critical care preformed (if so, how long)? @ -[No] Were there social determinants of health that impacted care today? How? (Homelessness, low income, unemployed, alcoholism, drug addiction, transportation, low edu. Level, literacy, decrease access to med. care, detention, rehab)? @ -[No] Was there de-escalation of care discussed even if they declined (Discuss DNR or withdrawal of care, Hospice)? DNR status @ -[No] What co-morbidities impacted this encounter? (DM, HTN, Smoking, COPD, CAD, Cancer, CVA, ARF, Chemo, Hep., AIDS, mental health diagnosis, sleep apnea, morbid obesity)? @ -[None] Was patient admitted / discharged? Hospital course, mention meds given and route, prescriptions, significant lab abnormalities, going to OR and other pertinent info. @ -Patient insisted he was suicidal and did not feel comfortable going home. EPS evaluated the patient spoke with psychiatry and he agreed to admit the den ent Undiagnosed new problem with uncertain prognosis? @ -[No] Drug Therapy requiring intensive monitoring for toxicity (Heparin, Nitro, Insulin, Cardizem)? @ -[No] Were any procedures done? @ -[No] Diagnosis/symptom? @ -Suicidal ideations Acute, or Chronic, or Acute on Chronic? @ -Acute Uncomplicated (without systemic symptoms) or Complicated (systemic symptoms)? @ -Complicated Side effects of treatment? @ -[No] Exacerbation, Progression, or Severe Exacerbation? @ -[No] Poses a threat to life or bodily function? How? (Chest pain, [place], [place], pneumonia, PE, COPD, DKA, ARF, appy, cholecystitis, CVA, Diverticulitis, Homicidal, Suicidal, threat to staff... and all critical care pts) @ -Yes this could lead to - Lab Data Lab Results 01/10/23 01/10/23 Range/Units 13:24 14:12 Urine Opiates Screen Detected H (NotDetected) Ur Oxycodone Screen Not Detected (NotDetected) Urine Methadone Screen Not Detected (NotDetected) Ur Propoxyphene Screen Not Detected (NotDetected) Ur Barbiturates Screen Not Detected (NotDetected) U Tricyclic Antidepress Not Detected (NotDetected) Ur Phencyclidine Scrn Not Detected (NotDetected) Ur Amphetamines Screen Not Detected (NotDetected) U Methamphetamines Scrn Not Detected (NotDetected) U Benzodiazepines Scrn Not Detected (NotDetected) Urine Cocaine Screen Not Detected (NotDetected) U Marijuana (THC) Screen Not Detected (NotDetected) Coronavirus (PCR) Not Detected (Not Detectd) Disposition Clinical Impression: Suicidal ideation, Depression Disposition: ADMITTED IP TO THIS HOSP Referrals: None,Stated [Primary Care Provider] - 1-2 days Time of Disposition: 15:03
[2023-01-10 13:51] LABS: Amphetamine Screen,Urine Not Detected (NotDetected); Barbiturate Screen,Urine Not Detected (NotDetected); Benzodiazepines Screen,Urine Not Detected (NotDetected); Cocaine Screen,Urine Not Detected (NotDetected); Methadone Screen, Urine Not Detected (NotDetected); Opiate Screen,Urine Detected (NotDetected); Oxycodone Screen, Urine Not Detected (NotDetected); Phencyclidine Screen,Urine Not Detected (NotDetected); Tricyclic Antidepressant,Urine Not Detected (NotDetected); Urn Cannabinoid Scrn Not Detected (NotDetected)
[2023-01-10] MEDS ORDERED: LORazepam 1 MG TAB PO STA (13:54)
[2023-01-10 15:36] LABS: Glucose,Whole Blood 157 mg/dL (70-110)
[2023-01-10] MEDS ORDERED: MAGNESIUM HYDROXIDE 2,400 MG/30 ML CUP PO PRN (15:43)
[2023-01-10] MEDS ORDERED: ACETAMINOPHEN TAB 325 MG TAB PO PRN (15:43)
[2023-01-10] MEDS ORDERED: ONDANSETRON ODT 4 MG TAB PO PRN (15:47)
[2023-01-10] MEDS ORDERED: OLANZapine 10 MG VIAL IM PRN (15:49)
[2023-01-10] MEDS ORDERED: OLANZapine 5 MG TAB PO PRN (15:51)
[2023-01-10 17:39] LABS: Glucose,Whole Blood 120 mg/dL (70-110)
[2023-01-10] MEDS: LORATADINE 10 MG TAB PO SCH (17:46)
[2023-01-10 20:00] LABS: Glucose,Whole Blood 242 mg/dL (70-110)
[2023-01-10] MEDS: metFORMIN 500 MG TAB PO SCH (20:38)
[2023-01-10] MEDS: Acetaminophen-Codeine 300-30mg TAB PO PRN (20:38)
[2023-01-10] MEDS: MIRTAZAPINE 15 MG TAB PO SCH (20:38)
[2023-01-10] MEDS: MELATONIN 5 MG TABLET PO SCH (20:39)
[2023-01-10] MEDS: TAMSULOSIN 0.4 MG CAP.ER.24H PO SCH (20:39)
[2023-01-10] MEDS: ATORVASTATIN 10 MG TAB PO SCH (20:40)
[2023-01-11 07:47] LABS: Glucose,Whole Blood 170 mg/dL (70-110)
[2023-01-11] MEDS: metFORMIN 500 MG TAB PO SCH ×2 (07:47→20:45)
[2023-01-11] MEDS: amLODIPine 10 MG TAB PO SCH (07:47)
[2023-01-11] MEDS: ASPIRIN 81 MG PO SCH (07:48)
[2023-01-11 07:52] LABS: Basophils % (A) 0 %; Eosinophils # (A) 0.4 k/uL (0-0.7); Eosinophils % (A) 5 %; HCT 45.8 % (39.0-53.0); HGB 17.2 gm/dL (13.0-17.5); Lymphocytes # (A) 1.5 k/uL (1.0-4.8); Lymphocytes % (A) 17 %; MCH 33.2 pg (25.0-35.0); MCHC 37.6 g/dL (31.0-37.0); MCV 88.4 fL (80.0-100.0); Mean Platelet Volume 7.8; Monocytes # (A) 0.4 k/uL (0-1.0); Monocytes % (A) 5 %; Neutrophils # (A) 6.1 k/uL (1.3-7.7); Neutrophils % (A) 71 %; Platelet Count 193 k/uL (150-450); RBC 5.19 m/uL (4.30-5.90); RDW 12.9 % (11.5-15.5); WBC 8.6 k/uL (3.8-10.6)
[2023-01-11] MEDS ORDERED: MELOXICAM 7.5 MG TAB PO PRN (08:00)
[2023-01-11] MEDS ORDERED: ARIPiprazole 5 MG TAB PO SCH (08:00)
[2023-01-11 08:13] LABS: ALT 44 U/L (4-49); AST 25 U/L (17-59); African American GFR (CKD) >90 (>60 ml/min/1.73 sqM); Alkaline Phosphatase 75 U/L (38-126); Anion Gap 6 mmol/L; Blood Urea Nitrogen 14 mg/dL (9-20); Calcium 9.4 mg/dL (8.4-10.2); Carbon Dioxide 24 mmol/L (22-30); Chloride 107 mmol/L (98-107); Glucose 157 mg/dL (74-99); Non-African American GFR(CKD) >90 (>60 ml/min/1.73 sqM); Potassium 4.5 mmol/L (3.5-5.1); Sodium 137 mmol/L (137-145); Total Bilirubin 0.5 mg/dL (0.2-1.3); Total Protein 6.3 g/dL (6.3-8.2)
[2023-01-11] MEDS: MAG HYDROX/AL HYDROX/SIMETH 30 ML CUP PO PRN (08:44)
[2023-01-11] MEDS ORDERED: LORazepam 1 MG TAB PO PRN (11:07)
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
[2023-01-11 12:21] LABS: Chol/HDL Ratio 2.89 Ratio; LDL Cholesterol,Calculated 55.7 mg/dL (0.0-131.0)
[2023-01-11 12:41] LABS: Glucose,Whole Blood 161 mg/dL (70-110)
[2023-01-11] MEDS: NICOTINE 21MG/24HR PATCH TRANSDERM SCH (15:25)
[2023-01-11] MEDS: LORATADINE 10 MG TAB PO SCH (16:18)
[2023-01-11] MEDS ORDERED: IPRATROPIUM-ALBUTEROL 3 ML NEB INHALATION PRN (17:22)
[2023-01-11] MEDS ORDERED: CYCLOBENZAPRINE 5 MG TAB PO PRN (17:23)
--- NOTE | 2023-01-11 17:27 | P.HPMEDMHU ---
History of Present Illness H&P Date: 01/11/23 Patient is a 52-year-old male with a past medical history of hypertension, hyperlipidemia, diabetes mellitus, BPH, depression and anxiety, COPD, tobacco abuse who presents to the ED with suicide idealization. Patient admitted to [facility]. Patient requesting something for shortness of breath. He states that he gets nebulizer treatments at the halfway. Patient also complaining of muscle spasms. Patient states that he has chronic diarrhea in the morning. He states that every morning he eats a banana and peanut butter. Patient otherwise denies any pressure-like chest pain, abnormal pain, nausea and vomiting. Review of Systems 10 ROS reviewed and are negative except as noted in HPI Past Medical History Past Medical History: Asthma, Chest Pain / Angina, COPD, CVA/TIA, Diabetes Mellitus, GERD/Reflux, Hearing Disorder / Deafness, Hyperlipidemia, Hypertension, Liver Disease, Osteoarthritis (OA), Pneumonia, Seizure Disorder, Sleep Apnea/CPAP/BIPAP Additional Past Medical History / Comment(s): states CVA at 35 yrs old, no weakness @ this time. states seizure at 35 yrs old., DDD- back & neck pain., carpal tunnel syndrome., hx. of cyst on kidney, uses cpap., states having abdominal pain with diarrhea and nausea ., Lives in a halfway with 2 other people. Has a caregiver.n Has [employer] public guardian. History of Any Multi-Drug Resistant Organisms: None Reported Past Surgical History: Heart Catheterization, Orthopedic Surgery Additional Past Surgical History / Comment(s): Cysts removed, left thumb surgery, colonoscopy 08/24/2019. Skin tags removed from both eyes. Past Anesthesia/Blood Transfusion Reactions: Motion Sickness, Postoperative Nausea & Vomiting (PONV) Smoking Status: Current every day smoker - Past Family History Brother(s) Family Medical History: Diabetes Mellitus Additional Family Medical History / Comment(s): Patient has 2 brothers. One from complications from diabetes. The second is alive with diabetes. Sister(s) Family Medical History: Cancer Additional Family Medical History / Comment(s): Patient has one sister with breast cancer. Patient does not have any children. Father Family Medical History: Cancer Additional Family Medical History / Comment(s): Father in his 40s or 50s from colon cancer. Mother Family Medical History: Cancer Additional Family Medical History / Comment(s): Mother at age 68 from lung cancer. Medications and Allergies Home Medications Medication Instructions Recorded Confirmed Type Tamsulosin [Flomax] 0.4 mg PO HS@199904/12/20 01/10/23 History Aspirin EC [Ecotrin Low Dose] 81 mg PO DAILY@0800 07/09/20 01/10/23 History amLODIPine [Norvasc] 10 mg PO DAILY@0800 04/10/21 01/10/23 History Atorvastatin [Lipitor] 10 mg PO HS@199901/19/22 01/10/23 History Cetirizine HCl [Zyrtec] 10 mg PO DAILY@1700 01/19/22 01/10/23 History lisinopriL [Zestril] 2.5 mg PO DAILY@0800 01/19/22 01/10/23 History Ergocalciferol (Vitamin D2) 1,250 mcg PO FR 08/18/22 01/10/23 History [Drisdol (50,000 Iu)] Metoclopramide [Reglan] 10 mg PO Q6H PRN #15 tab 12/16/22 01/10/23 Rx Ondansetron Odt [Zofran ODT] 4 mg PO Q8HR PRN #15 tab 12/16/22 01/10/23 Rx ARIPiprazole [Abilify] 7.5 mg PO DAILY@0800 12/17/22 01/10/23 History Acetaminophen-Codeine 300-30mg 1 tab PO Q6H PRN 12/17/22 01/10/23 History [Tylenol w/codeine #3] Diphenoxylate HCl/Atropine 1 tab PO QID@08,12,17,20 12/17/22 01/10/23 History [Lomotil 2.5-0.025 mg Tablet] Melatonin 5 mg PO HS@199912/17/22 01/10/23 History Mirtazapine [Remeron] 30 mg PO HS@199912/17/22 01/10/23 History Meloxicam [Mobic] 7.5 mg PO DAILY@0800 PRN #0 12/18/22 01/10/23 Rx metFORMIN HCL ER [Glucophage XR] 1,000 mg PO BID@799,1999 #120 tab 12/18/22 01/10/23 Rx Albuterol Inhaler [Ventolin Hfa 2 puff INHALATION RT-Q6H PRN 01/10/23 01/10/23 History Inhaler] Budesonide/Formoterol Fumarate 2 puff INHALATION RT-BID 01/10/23 01/10/23 History [Symbicort 80-4.5 Mcg Inhaler] Omeprazole 20 mg PO DAILY PRN 01/10/23 01/10/23 History Allergies Allergy/AdvReac Type Severity Reaction Status Date / Time dicyclomine HCl [From Bentyl] Allergy Unknown Dyspnea Verified 01/10/23 19:36 latex Allergy Unknown Rash/Hives Verified 01/10/23 19:36 adhesive AdvReac Unknown Itching Verified 01/10/23 19:36 ciprofloxacin AdvReac Unknown Nausea Verified 01/10/23 19:36 Macrolide Antibiotics AdvReac Unknown Nausea Verified 01/10/23 19:36 sulfamethoxazole AdvReac Unknown Unknown Verified 01/10/23 19:36 [From Bactrim] trimethoprim [From Bactrim] AdvReac Unknown Unknown Verified 01/10/23 19:36 Physical Exam Osteopathic Statement: *. No significant issues noted on an osteopathic structural exam other than those noted in the History and Physical/Consult. Vitals: Vital Signs Temp Pulse Resp BP 01/11/23 06:35 98.1 F 60 14 112/62 General: [Alert and oriented, well nourished, no acute distress]. Eye: [PERRL, EOMI, normal conjunctiva]. HENT: [Normocephalic, clear tympanic membranes, normal hearing, moist oral mucosa, no scleral icterus, no sinus tenderness]. Neck: [Supple, non-tender, no carotid bruits, no JVD, no lymphadenopathy]. Lungs: [Clear to auscultation and percussion, non-labored respiration]. Heart: [Normal rate, regular rhythm, no murmur, gallop or edema]. Abdomen: [Soft, non-tender, non-distended, normal bowel sounds, no masses]. Musculoskeletal: [Normal range of motion and strength, no tenderness or swelling]. Skin: [Skin is warm, dry and pink, no rashes or lesions]. Neurologic: [Awake, alert, and oriented X3, CN II-XII intact]. Psychiatric: [Cooperative, appropriate mood and affect]. Cranial Nerve Examination - Cranial Nerves Cranial Nerve I- Olfactory: Intact Cranial Nerve II- Optic: Intact Cranial Nerve III- Oculomotor: Intact Cranial Nerve IV- Trochlear: Intact Cranial Nerve V- Trigeminal: Intact Cranial Nerve - Abducens: Intact Cranial Nerve VII- Facial: Intact Cranial Nerve VIII- Auditory: Intact Cranial Nerve IX- Glossopharyngeal: Intact Cranial Nerve X- Vagus: Intact Cranial Nerve XI- Accessory: Intact Cranial Nerve XII- Hypoglossal: Intact Results CBC & Chem 7: 01/11/23 07:13 01/11/23 07:13 Labs: Abnormal Lab Results - Last 24 Hours (Table) 01/10/23 01/10/23 01/11/23 Range/Units 17:38 19:53 07:13 MCHC (31.0-37.0) g/dL Glucose (74-99) mg/dL POC Glucose (mg/dL) 120 H 242 H (70-110) mg/dL Hemoglobin A1c 8.4 H (<=6.0) % 01/11/23 01/11/23 01/11/23 Range/Units 07:13 07:13 07:44 MCHC 37.6 H (31.0-37.0) g/dL Glucose 157 H (74-99) mg/dL POC Glucose (mg/dL) 170 H (70-110) mg/dL Hemoglobin A1c (<=6.0) % 01/11/23 Range/Units 12:34 MCHC (31.0-37.0) g/dL Glucose (74-99) mg/dL POC Glucose (mg/dL) 161 H (70-110) mg/dL Hemoglobin A1c (<=6.0) % Thrombosis Risk Factor Assmnt - Choose All That Apply Each Factor Represents 1 point: Abnormal pulmonary function (COPD), Acute ME, Age 41-60 years, Obesity (BMI >25) Thrombosis Risk Factor Assessment Total Risk Factor Score: 4 Thrombosis Risk Factor Assessment Level: Moderate Risk Assessment and Plan Assessment: Diabetes mellitus Blood glucose is controlled Resume metformin Resume Accu-Cheks Hemoglobin A1c is 8.4 COPD Patient has no wheezing on exam We'll start albuterol inhaler as needed and DuoNeb as needed Tobacco abuse Patient counseled on smoking cessation Nicotine patch Chronic diarrhea Patient instructed to avoid bananas Hypertension Resume home meds Hyperlipidemia Resume home meds Depression and anxiety Suicide idealization As per your psychiatric management
[2023-01-11 17:38] LABS: Glucose,Whole Blood 150 mg/dL (70-110)
[2023-01-11 19:51] LABS: Glucose,Whole Blood 242 mg/dL (70-110)
[2023-01-11] MEDS: traZODone HCL 100 MG TAB PO SCH (20:44)
[2023-01-11] MEDS: TAMSULOSIN 0.4 MG CAP.ER.24H PO SCH (20:44)
[2023-01-11] MEDS: MIRTAZAPINE 15 MG TAB PO SCH (20:44)
[2023-01-11] MEDS: ALBUTEROL HFA INHALER INHALATION PRN (20:44)
[2023-01-11] MEDS: MELATONIN 5 MG TABLET PO SCH (20:45)
[2023-01-11] MEDS: ATORVASTATIN 10 MG TAB PO SCH (20:45)
[2023-01-12 07:40] LABS: Glucose,Whole Blood 176 mg/dL (70-110)
[2023-01-12] MEDS: ARIPiprazole 5 MG TAB PO SCH (08:07)
[2023-01-12] MEDS: metFORMIN 500 MG TAB PO SCH ×2 (08:07→19:34)
[2023-01-12] MEDS: amLODIPine 10 MG TAB PO SCH (08:07)
[2023-01-12] MEDS: NICOTINE 21MG/24HR PATCH TRANSDERM SCH (08:07)
[2023-01-12] MEDS: ASPIRIN 81 MG PO SCH (08:07)
[2023-01-12] MEDS: MAG HYDROX/AL HYDROX/SIMETH 30 ML CUP PO PRN ×3 (08:08→19:37)
[2023-01-12] MEDS: ALBUTEROL HFA INHALER INHALATION PRN ×2 (08:09→14:11)
[2023-01-12] MEDS: FAMOTIDINE 20 MG TAB PO PRN ×2 (11:21→20:37)
--- NOTE | 2023-01-12 11:24 | P.PN ---
Progress Note - Text Progress Note Date: 01/12/23 Interval History: Patient was seen wandering the hallways and was directable and agreeable to speak with technical writer and editor in the office. The patient was that he is feeling significantly better today. He is denying any suicidal intention, and/or plan. He denies any auditory or visual hallucinations. He denies any paranoia or other delusions. He has been adherent with his medications and is not reporting any significant side effects. He does report some heartburn. He reports no issues regarding his sleep or his appetite. He wishes to continue with oral medication and does not wish to transition to any long-acting injectable this time. Mental Status Exam: General Appearance: Patient appears to be stated age is alert, directable, and cooperative. Behavior: Patient is calmly seated without any agitated behavior. Speech: Patient's speech is fluent and nonpressured. Mood/Affect: Mood is improving mildly, affect is congruent and constricted. Suicidality/Homicidality: Patient denies having any suicidal or homicidal ideation intent or plan. Perceptions: Patient denies any visual hallucinations and denies any auditory hallucinations Though content/process: There is no evidence of any delusional thought content and thought process is linear and goal-directed. Memory and concentration: AOX3, grossly intact for the purposes of this session Judgment and insight: Improving mildly Vital Signs Temp 97.6 F 01/12/23 06:00 Pulse 85 01/12/23 08:05 Resp 16 01/12/23 06:00 BP 116/61 01/12/23 08:05 Pulse Ox 95 01/12/23 06:00 FiO2 Laboratory Results - Last 24 Hours 01/11/23 01/11/23 01/11/23 07:13 07:13 12:34 POC Glucose (mg/dL) 161 H POC Glu Mail List Librarian ID Cathleen Felicia [address] Glu mg/dL 194 Hemoglobin A1c 8.4 H Triglycerides 124.00 Cholesterol 123.00 LDL Cholesterol, Calc 55.7 VLDL Cholesterol, Calc 24.80 HDL Cholesterol 42.50 Cholesterol/HDL Ratio 2.89 01/11/23 01/11/23 01/12/23 17:37 19:49 07:38 POC Glucose (mg/dL) 150 H 242 H 176 H POC Glu Mail List Librarian ID Manuel Sheehan, Eric Rodriguez [address] Glu mg/dL Hemoglobin A1c Triglycerides Cholesterol LDL Cholesterol, Calc VLDL Cholesterol, Calc HDL Cholesterol Cholesterol/HDL Ratio Assessment Schizophrenia Tobacco use disorder Plan: -Patient continues to meet criteria for inpatient psychiatric admission for symptom stabilization and safety. Patient has signed adult voluntary form and medication consent and was placed in patient's chart. -Medications: Abilify 10 mg by mouth every morning for psychosis Remeron 30 mg by mouth at bedtime for insomnia and depression trazodone 100 mg by mouth at bedtime for insomnia per patient request -When necessary Ativan and Zyprexa for agitation/aggression. -NRT - nicotine patch -SW on board for discharge planning. Encouraged the patient to participate in milieu.
[2023-01-12 12:45] LABS: Glucose,Whole Blood 121 mg/dL (70-110)
[2023-01-12] MEDS: NICOTINE GUM (POLACRILEX) 2 MG GUM BUCCAL PRN (16:09)
[2023-01-12] MEDS: LORATADINE 10 MG TAB PO SCH (16:09)
[2023-01-12 17:34] LABS: Glucose,Whole Blood 193 mg/dL (70-110)
[2023-01-12] MEDS: MELATONIN 5 MG TABLET PO SCH (19:34)
[2023-01-12] MEDS: TAMSULOSIN 0.4 MG CAP.ER.24H PO SCH (19:34)
[2023-01-12] MEDS: traZODone HCL 100 MG TAB PO SCH (19:34)
[2023-01-12] MEDS: MIRTAZAPINE 15 MG TAB PO SCH (19:34)
[2023-01-12] MEDS: ATORVASTATIN 10 MG TAB PO SCH (19:34)
[2023-01-12] MEDS: Acetaminophen-Codeine 300-30mg TAB PO PRN (19:35)
[2023-01-12 19:50] LABS: Glucose,Whole Blood 170 mg/dL (70-110)
[2023-01-13 00:31] VITALS: BP 105/60; PULSE 75; RESP 16; TEMP 98.1
[2023-01-13] MEDS: MAG HYDROX/AL HYDROX/SIMETH 30 ML CUP PO PRN ×2 (06:30→11:18)
[2023-01-13] MEDS: NICOTINE GUM (POLACRILEX) 2 MG GUM BUCCAL PRN ×2 (06:44→10:54)
[2023-01-13] MEDS: Acetaminophen-Codeine 300-30mg TAB PO PRN (07:07)
[2023-01-13 07:39] LABS: Glucose,Whole Blood 151 mg/dL (70-110)
[2023-01-13] MEDS: ASPIRIN 81 MG PO SCH (08:24)
[2023-01-13] MEDS: amLODIPine 10 MG TAB PO SCH (08:24)
[2023-01-13] MEDS: ARIPiprazole 5 MG TAB PO SCH (08:25)
[2023-01-13] MEDS: metFORMIN 500 MG TAB PO SCH (08:25)
[2023-01-13] MEDS: NICOTINE 21MG/24HR PATCH TRANSDERM SCH (08:26)
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
[2023-01-13] MEDS: ALBUTEROL HFA INHALER INHALATION PRN (11:19)
[2023-01-15] MEDS ORDERED: ERGOCALCIFEROL 1,250 MCG (50,000 IU) CAPSULE PO SCH (09:00)
== END 2023-01-13 11:30 | disposition home or self-care (01) | DRG 885 ==
LOC: EC 12:28 → 3MHU 15:40
PROVIDERS: ADMIT Psychiatry & Neurology Psychiatry; ATTEND Psychiatry & Neurology Psychiatry
DX: F20.9 Schizophrenia, unspecified (principal); R45.851 Suicidal ideations; E03.9 Hypothyroidism, unspecified; Z79.890 Hormone replacement therapy; J44.9 Chronic obstructive pulmonary disease, unspecified; G40.909 Epilepsy, unspecified, not intractable, without status epilepticus; G47.00 Insomnia, unspecified; Z20.822 Contact with and (suspected) exposure to COVID-19; E11.9 Type 2 diabetes mellitus without complications; K21.9 Gastro-esophageal reflux disease without esophagitis; E78.5 Hyperlipidemia, unspecified; M19.90 Unspecified osteoarthritis, unspecified site; Z87.01 Personal history of pneumonia (recurrent); F17.210 Nicotine dependence, cigarettes, uncomplicated; F31.9 Bipolar disorder, unspecified; Z91.041 Radiographic dye allergy status; Z88.1 Allergy status to other antibiotic agents; Z88.2 Allergy status to sulfonamides; I10 Essential (primary) hypertension
CPT/HCPCS: 36415; 80053; 80061; 80306; 82075; 83036; 84443; 85025; 87635; 93005; 99285

== ENCOUNTER 2023-02-17 12:16 | Emergency (ER) | payer MEDICARE, OTHER ==
[2023-02-17 12:36] VITALS: RESP 18; TEMP 98.9
--- NOTE | 2023-02-17 12:47 | ED ---
Psych HPI - General Source: patient, RN notes reviewed Mode of arrival: ambulatory <Haley Barclay - Last Filed: 02/17/23 12:38> - History of Present Illness MD Complaint: suicidal ideation <Jeanette De Paz - Last Filed: 02/17/23 22:34> - General Chief Complaint: Psychiatric Symptoms Stated Complaint: suicidal Time Seen by Provider: 02/17/23 12:38 - History of Present Illness Initial Comments: Patient is a 52 year old male presenting to ER for psychiatric evalua tion of low mood, suicidal thoughts without suicidal plan. He reports visual and auditory hallucinations. He denies any homicidal thoughts. He follows with [facility] for bipolar depression, anxiety and schizophrenia. (Haley Barclay) I review by the HPI. Patient states he had a nightmare of a coyote attacking him and has had visual hallucinations of it this week. Patient has suicidal ideation without plan or intention. Denies alcohol or drug use. Patient has no other concerns at this time including fever, chills, headache, shortness of breath, cough, chest pain, abdominal pain, nausea, vomiting, diarrhea, and burning with urination. (Jeanette De Paz) - Related Data Home Medications Medication Instructions Recorded Confirmed Tamsulosin [Flomax] 0.4 mg PO HS@199904/12/20 01/10/23 Aspirin EC [Ecotrin Low Dose] 81 mg PO DAILY@0807/09/20 01/10/23 amLODIPine [Norvasc] 10 mg PO DAILY@0804/10/21 01/10/23 Atorvastatin [Lipitor] 10 mg PO HS@199901/19/22 01/10/23 Cetirizine HCl [Zyrtec] 10 mg PO DAILY@1700 01/19/22 01/10/23 lisinopriL [Zestril] 2.5 mg PO DAILY@79901/19/22 01/10/23 Ergocalciferol (Vitamin D2) 1,250 mcg PO FR 08/18/22 01/10/23 [Drisdol (50,000 Iu)] Acetaminophen-Codeine 300-30mg 1 tab PO Q6H PRN 12/17/22 01/10/23 [Tylenol w/codeine #3] Diphenoxylate HCl/Atropine 1 tab PO QID@12,17,20 12/17/22 01/10/23 [Lomotil 2.5-0.025 mg Tablet] Melatonin 5 mg PO HS@199912/17/22 01/10/23 Albuterol Inhaler [Ventolin Hfa 2 puff INHALATION RT-Q6H PRN 01/10/23 01/10/23 Inhaler] Budesonide/Formoterol Fumarate 2 puff INHALATION RT-BID 01/10/23 01/10/23 [Symbicort 80-4.5 Mcg Inhaler] Omeprazole 20 mg PO DAILY PRN 01/10/23 01/10/23 Previous Rx's Medication Instructions Recorded Metoclopramide [Reglan] 10 mg PO Q6H PRN #15 tab 12/16/22 Ondansetron Odt [Zofran ODT] 4 mg PO Q8HR PRN #15 tab 12/16/22 Meloxicam [Mobic] 7.5 mg PO DAILY@0800 PRN #0 12/18/22 metFORMIN HCL ER [Glucophage XR] 1,000 mg PO BID@0800,1999 #120 tab 12/18/22 ARIPiprazole [Abilify] 10 mg PO DAILY@0800 30 Days #60 tab 01/13/23 Mirtazapine [Remeron] 30 mg PO HS@1999 30 Days #30 tab 01/13/23 Nicotine Gum (Polacrilex) 2 mg BUCCAL Q4HR PRN 15 Days #80 01/13/23 [Nicorette] pieceofgum traZODone HCL [Desyrel] 100 mg PO HS 30 Days #30 tab 01/13/23 Allergies Allergy/AdvReac Type Severity Reaction Status Date / Time dicyclomine HCl [From Bentyl] Allergy Unknown Dyspnea Verified 02/17/23 12:36 latex Allergy Unknown Rash/Hives Verified 02/17/23 12:36 adhesive AdvReac Unknown Itching Verified 02/17/23 12:36 ciprofloxacin AdvReac Unknown Nausea Verified 02/17/23 12:36 Macrolide Antibiotics AdvReac Unknown Nausea Verified 02/17/23 12:36 sulfamethoxazole AdvReac Unknown Unknown Verified 02/17/23 12:36 [From Bactrim] trimethoprim [From Bactrim] AdvReac Unknown Unknown Verified 02/17/23 12:36 Review of Systems ROS Other: All systems not noted in ROS Statement are negative. <Haley Barclay - Last Filed: 02/17/23 12:38> ROS Other: All systems not noted in ROS Statement are negative. <ZandraJeanette - Last Filed: 02/17/23 22:34> ROS Statement: Those systems with pertinent positive or pertinent negative responses have been documented in the HPI. Past Medical History Past Medical History: Asthma, Chest Pain / Angina, COPD, CVA/TIA, Diabetes Mellitus, GERD/Reflux, Hearing Disorder / Deafness, Hyperlipidemia, Hypertension, Liver Disease, Osteoarthritis (OA), Pneumonia, Seizure Disorder, Sleep Apnea/CPAP/BIPAP Additional Past Medical History / Comment(s): states CVA at 35 yrs old, no weakness @ this time. states seizure at 35 yrs old., DDD- back & neck pain., carpal tunnel syndrome., hx. of cyst on kidney, uses cpap., states having abdominal pain with diarrhea and nausea ., Lives in a snf with 2 other people. Has a caregiver.n Has [employer] public guardian. History of Any Multi-Drug Resistant Organisms: None Reported Past Surgical History: Heart Catheterization, Orthopedic Surgery Additional Past Surgical History / Comment(s): Cysts removed, left thumb surgery, colonoscopy 08/24/2019. Skin tags removed from both eyes. Past Anesthesia/Blood Transfusion Reactions: Motion Sickness, Postoperative Nausea & Vomiting (PONV) Past Psychological History: Anxiety, Bipolar, Depression, Schizophrenia Smoking Status: Current every day smoker Past Alcohol Use History: None Reported Past Drug Use History: None Reported - Past Family History Brother(s) Family Medical History: Diabetes Mellitus Additional Family Medical History / Comment(s): Patient has 2 brothers. One from complications from diabetes. The second is alive with diabetes. Sister(s) Family Medical History: Cancer Additional Family Medical History / Comment(s): Patient has one sister with breast cancer. Patient does not have any children. Father Family Medical History: Cancer Additional Family Medical History / Comment(s): Father in his 40s or 50s from colon cancer. Mother Family Medical History: Cancer Additional Family Medical History / Comment(s): Mother at age 68 from lung cancer. <Haley Barclay - Last Filed: 02/17/23 12:38> General Exam Limitations: no limitations <Haley Barclay - Last Filed: 02/17/23 12:38> General appearance: alert Head exam: Present: atraumatic, normocephalic, normal inspection Respiratory exam: Present: normal lung sounds bilaterally. Absent: respiratory distress, wheezes, rales, rhonchi, stridor Cardiovascular Exam: Present: regular rate, normal rhythm, normal heart sounds. Absent: systolic murmur, diastolic murmur, rubs, gallop, clicks GI/Abdominal exam: Present: soft, normal bowel sounds. Absent: distended, tenderness, guarding, rebound, rigid Neurological exam: Present: alert Psychiatric exam: Present: suicidal ideation Skin exam: Present: warm, dry, intact, normal color. Absent: rash <Jeanette De Paz - Last Filed: 02/17/23 22:34> - General Exam Comments Initial Comments: Visual Physical Exam Vital signs reviewed General: Well-appearing, nontoxic, no acute distress. Head: Normocephalic, atraumatic Eyes: PERRLA, EOMI ENT: Airway patent Chest: Nonlabored breathing Skin: No visual rash, normal skin tone Neuro: Alert and oriented 3 Musculoskeletal: No gross abnormalities I performed the Quicknote portion of this note signed Haley Barclay REGIONAL OPERATIONS DIRECTOR-c (Haley Barclay) Course Vital Signs 02/17/23 02/17/23 12:33 18:35 Temperature 98.9 F Pulse Rate 75 74 Respiratory 18 18 Rate Blood Pressure 105/73 132/78 O2 Sat by Pulse 98 99 Oximetry Medical Decision Making <Jeanette De Paz - Last Filed: 02/17/23 22:34> - Medical Decision Making Was pt. sent in by a medical professional or institution (, PA, REGIONAL OPERATIONS DIRECTOR, urgent care, hospital, or long term...) When possible be specific @ -No Did you speak to anyone other than the patient for history (EMS, parent, family, police, friend...)? What history was obtained from this source @ -No Did you review nursing and triage notes (agree or disagree)? Why? @ -I reviewed and agree with nursing and triage notes Were old charts reviewed (outside hosp., previous admission, EMS record, old EKG, old radiological studies, urgent care reports/EKG's, long term records)? Report findings @ -No old charts were reviewed Differential Diagnosis (chest pain, altered mental status, abdominal pain women, abdominal pain men, vaginal bleeding, weakness, fever, dyspnea, syncope, headache, dizziness, GI bleed, back pain, seizure, CVA, palpatations, mental health)? @ -Differential Mental Health Depression, anxiety, bipolar, psychosis, schizophrenia, borderline personality, situational depression, adjustment disorder, behavioral disorder, brain tumor, malingering, substance abuse, encephalopathy, medication reaction, dementia, hypothyroidism, degenerative neurologic disorder, lupus.... This is not meant to be all-inclusive list EKG interpreted by me (3pts min.). @ -As above X-rays interpreted by me (1pt min.). @ -None done CT interpreted by me (1pt min.). @ -None done U/S interpreted by me (1pt. min.). @ -None done What testing was considered but not performed or refused? (CT, X-rays, U/S, labs)? Why? @ -None What meds were considered but not given or refused? Why? @ -None Did you discuss the management of the patient with other professionals (professionals i.e. , PA, REGIONAL OPERATIONS DIRECTOR, lab, RT, psych nurse, social media marketer, screw machine operator single spindle, teacher, police liaison officer, director of casework)? Give summary @ -No Was smoking cessation discussed for >3mins.? @ -No Was critical care preformed (if so, how long)? @ -No Were there social determinants of health that impacted care today? How? (Homelessness, low income, unemployed, alcoholism, drug addiction, transportation, low edu. Level, literacy, decrease access to med. care, penitentiary, rehab)? @ -No Was there de-escalation of care discussed even if they declined (Discuss DNR or withdrawal of care, Hospice)? DNR status @ -No What co-morbidities impacted this encounter? (DM, HTN, Smoking, COPD, CAD, Cancer, CVA, ARF, Chemo, Hep., AIDS, mental health diagnosis, sleep apnea, morbid obesity)? @ -None Was patient admitted / discharged? Hospital course, mention meds given and route, prescriptions, significant lab abnormalities, going to OR and other pertinent info. @ -Patient presenting for suicidal ideation. No plan or intention. Further diagnostic studies including laboratory studies and imaging not indicated at this time. Alcohol breathalyzer 0. Patient given IM Ativan for anxiety. EPS did evaluate the patient and felt that he was stable for discharge. Safety plan was made. Patient discharged in stable condition Undiagnosed new problem with uncertain prognosis? @ -No Drug Therapy requiring intensive monitoring for toxicity (Heparin, Nitro, Insulin, Cardizem)? @ -No Were any procedures done? @ -No Diagnosis/symptom? @ -Suicidal ideation, visual auditory hallucinations Acute, or Chronic, or Acute on Chronic? @ Acute Uncomplicated (without systemic symptoms) or Complicated (systemic symptoms)? @ -Uncomplicated Side effects of treatment? @ -No Exacerbation, Progression, or Severe Exacerbation? @ -No Poses a threat to life or bodily function? How? (Chest pain, USA, [place], pneumonia, PE, COPD, DKA, ARF, appy, cholecystitis, CVA, Diverticulitis, Homicidal, Suicidal, threat to staff... and all critical care pts) @ -No Dr. Christopher is my attending (Jeanette De Paz) - Lab Data Lab Results 02/17/23 Range/Units 16:07 Urine Opiates Screen Not Detected (NotDetected) Ur Oxycodone Screen Not Detected (NotDetected) Urine Methadone Screen Not Detected (NotDetected) Ur Propoxyphene Screen Not Detected (NotDetected) Ur Barbiturates Screen Not Detected (NotDetected) U Tricyclic Antidepress Not Detected (NotDetected) Ur Phencyclidine Scrn Not Detected (NotDetected) Ur Amphetamines Screen Not Detected (NotDetected) U Methamphetamines Scrn Not Detected (NotDetected) U Benzodiazepines Scrn Not Detected (NotDetected) Urine Cocaine Screen Not Detected (NotDetected) U Marijuana (THC) Screen Not Detected (NotDetected) Disposition <Haley Barclay - Last Filed: 02/17/23 12:38> Is patient prescribed a controlled substance at d/c from ED?: No <Jeanette De Paz - Last Filed: 02/17/23 22:34> Clinical Impression: Suicidal behavior Disposition: HOME SELF-CARE Condition: Good Instructions (If sedation given, give patient instructions): Suicide Prevention (ED) Additional Instructions: Follow up with [facility] [address] in one to 2 days. Return to the emergency department if you experience new, concerning, or worsening Referrals: Ramya Saul MD [Primary Care Provider] - 1-2 days
[2023-02-17] MEDS ORDERED: LORazepam 2 MG/ML INJ IM STA (18:10)
[2023-02-17 18:36] VITALS: BP 132/78; PULSE 74
[2023-02-17 18:57] LABS: Amphetamine Screen,Urine Not Detected (NotDetected); Barbiturate Screen,Urine Not Detected (NotDetected); Benzodiazepines Screen,Urine Not Detected (NotDetected); Cocaine Screen,Urine Not Detected (NotDetected); Methadone Screen, Urine Not Detected (NotDetected); Opiate Screen,Urine Not Detected (NotDetected); Oxycodone Screen, Urine Not Detected (NotDetected); Phencyclidine Screen,Urine Not Detected (NotDetected); Tricyclic Antidepressant,Urine Not Detected (NotDetected); Urn Cannabinoid Scrn Not Detected (NotDetected)
== END 2023-02-17 18:36 | disposition home or self-care (01) ==
LOC: EC 12:16
DX: R45.851 Suicidal ideations (principal); J44.9 Chronic obstructive pulmonary disease, unspecified; I10 Essential (primary) hypertension; K21.9 Gastro-esophageal reflux disease without esophagitis; M19.90 Unspecified osteoarthritis, unspecified site; E78.5 Hyperlipidemia, unspecified; E11.9 Type 2 diabetes mellitus without complications; F41.9 Anxiety disorder, unspecified; F31.9 Bipolar disorder, unspecified; Z86.73 Personal history of transient ischemic attack (TIA), and cerebral infarction without residual deficits; F17.200 Nicotine dependence, unspecified, uncomplicated; Z88.2 Allergy status to sulfonamides; Z91.040 Latex allergy status; Z88.8 Allergy status to other drugs, medicaments and biological substances; Z79.82 Long term (current) use of aspirin; Z79.51 Long term (current) use of inhaled steroids; Z79.899 Other long term (current) drug therapy
CPT/HCPCS: 80306; 82075; 99284

== ENCOUNTER 2023-02-28 20:19 | Emergency (ER) | payer MEDICARE, OTHER ==
[2023-02-28 20:26] VITALS: BP 139/100; PULSE 65; RESP 16; TEMP 98.4
--- NOTE | 2023-02-28 21:54 | ED ---
ENT HPI - General Chief complaint: Headache Stated complaint: Headache Time Seen by Provider: 02/28/23 21:13 Source: patient, RN notes reviewed, old records reviewed Mode of arrival: EMS Limitations: no limitations - History of Present Illness Initial comments: This is a 52-year-old male to the emergency department today for evaluation today. Patient is well-known to this emergency department. Patient comes in for multiple nonspecific complaints and significant worsening anxiety. Patient states aside from normal complaints abdominal pain reflux pain chest pain he has pain of mouth pain left-sided facial swelling. Patient does state that he has no fevers, patient has had all his teeth removed secondary to poor dentition. He has no other complaints no fevers no travel history no sick contacts no recent change in medications. MD complaint: tooth pain, sore throat, ear pain, other (Sided facial pain) -: hour(s) Severity: mild Severity scale (1-10): 2 Quality: aching Consistency: constant Improves with: none Worsens with: none Associated Symptoms: toothache, other (Laceration of pain) - Related Data Home Medications Medication Instructions Recorded Confirmed Tamsulosin [Flomax] 0.4 mg PO HS@199904/12/20 01/10/23 Aspirin EC [Ecotrin Low Dose] 81 mg PO DAILY@0800 07/09/20 01/10/23 amLODIPine [Norvasc] 10 mg PO DAILY@0804/10/21 01/10/23 Atorvastatin [Lipitor] 10 mg PO HS@199901/19/22 01/10/23 Cetirizine HCl [Zyrtec] 10 mg PO DAILY@1700 01/19/22 01/10/23 lisinopriL [Zestril] 2.5 mg PO DAILY@0800 01/19/22 01/10/23 Ergocalciferol (Vitamin D2) 1,250 mcg PO FR 08/18/22 01/10/23 [Drisdol (50,000 Iu)] Acetaminophen-Codeine 300-30mg 1 tab PO Q6H PRN 12/17/22 01/10/23 [Tylenol w/codeine #3] Diphenoxylate HCl/Atropine 1 tab PO QID@08,12,17,20 12/17/22 01/10/23 [Lomotil 2.5-0.025 mg Tablet] Melatonin 5 mg PO HS@199912/17/22 01/10/23 Albuterol Inhaler [Ventolin Hfa 2 puff INHALATION RT-Q6H PRN 01/10/23 01/10/23 Inhaler] Budesonide/Formoterol Fumarate 2 puff INHALATION RT-BID 01/10/23 01/10/23 [Symbicort 80-4.5 Mcg Inhaler] Omeprazole 20 mg PO DAILY PRN 01/10/23 01/10/23 Previous Rx's Medication Instructions Recorded Metoclopramide [Reglan] 10 mg PO Q6H PRN #15 tab 12/16/22 Ondansetron Odt [Zofran ODT] 4 mg PO Q8HR PRN #15 tab 12/16/22 Meloxicam [Mobic] 7.5 mg PO DAILY@0800 PRN #0 12/18/22 metFORMIN HCL ER [Glucophage XR] 1,000 mg PO BID@799,1999 #120 tab 12/18/22 ARIPiprazole [Abilify] 10 mg PO DAILY@00 30 Days #60 tab 01/13/23 Mirtazapine [Remeron] 30 mg PO HS@1999 30 Days #30 tab 01/13/23 Nicotine Gum (Polacrilex) 2 mg BUCCAL Q4HR PRN 15 Days #80 01/13/23 [Nicorette] pieceofgum traZODone HCL [Desyrel] 100 mg PO HS 30 Days #30 tab 01/13/23 Amoxic-Pot Clav 875-125Mg 1 tab PO Q12HR #20 tablet 02/28/23 [Augmentin 875-125] Allergies Allergy/AdvReac Type Severity Reaction Status Date / Time dicyclomine HCl [From Bentyl] Allergy Unknown Dyspnea Verified 02/17/23 12:36 latex Allergy Unknown Rash/Hives Verified 02/17/23 12:36 adhesive AdvReac Unknown Itching Verified 02/17/23 12:36 ciprofloxacin AdvReac Unknown Nausea Verified 02/17/23 12:36 Macrolide Antibiotics AdvReac Unknown Nausea Verified 02/17/23 12:36 sulfamethoxazole AdvReac Unknown Unknown Verified 02/17/23 12:36 [From Bactrim] trimethoprim [From Bactrim] AdvReac Unknown Unknown Verified 02/17/23 12:36 Review of Systems ROS Statement: Those systems with pertinent positive or pertinent negative responses have been documented in the HPI. ROS Other: All systems not noted in ROS Statement are negative. Past Medical History Past Medical History: Asthma, Chest Pain / Angina, COPD, CVA/TIA, Diabetes Mellitus, GERD/Reflux, Hearing Disorder / Deafness, Hyperlipidemia, Hypertension, Liver Disease, Osteoarthritis (OA), Pneumonia, Seizure Disorder, Sleep Apnea/CPAP/BIPAP Additional Past Medical History / Comment(s): states CVA at 35 yrs old, no weakness @ this time. states seizure at 35 yrs old., DDD- back & neck pain., carpal tunnel syndrome., hx. of cyst on kidney, uses cpap., states having abd ominal pain with diarrhea and nausea ., Lives in a usp with 2 other people. Has a caregiver.n Has [employer] public guardian. History of Any Multi-Drug Resistant Organisms: None Reported Past Surgical History: Heart Catheterization, Orthopedic Surgery Additional Past Surgical History / Comment(s): Cysts removed, left thumb surgery, colonoscopy 08/24/2019. Skin tags removed from both eyes. Past Anesthesia/Blood Transfusion Reactions: Motion Sickness, Postoperative Nausea & Vomiting (PONV) Past Psychological History: Anxiety, Bipolar, Depression, Schizophrenia Smoking Status: Current every day smoker Past Alcohol Use History: None Reported Past Drug Use History: None Reported - Past Family History Brother(s) Family Medical History: Diabetes Mellitus Additional Family Medical History / Comment(s): Patient has 2 brothers. One from complications from diabetes. The second is alive with diabetes. Sister(s) Family Medical History: Cancer Additional Family Medical History / Comment(s): Patient has one sister with breast cancer. Patient does not have any children. Father Family Medical History: Cancer Additional Family Medical History / Comment(s): Father in his 40s or 50s from colon cancer. Mother Family Medical History: Cancer Additional Family Medical History / Comment(s): Mother at age 68 from lung cancer. General Exam - General Exam Comments Initial Comments: Left facial lymphadenopathy Limitations: no limitations General appearance: alert, in no apparent distress Head exam: Present: atraumatic, normocephalic, normal inspection Eye exam: Present: normal appearance, PERRL, EOMI. Absent: scleral icterus, conjunctival injection, periorbital swelling ENT exam: Present: normal exam, mucous membranes moist Neck exam: Present: normal inspection. Absent: tenderness, meningismus, lymphadenopathy Respiratory exam: Present: normal lung sounds bilaterally. Absent: respiratory distress, wheezes, rales, rhonchi, stridor Cardiovascular Exam: Present: regular rate, normal rhythm, normal heart sounds. Absent: systolic murmur, diastolic murmur, rubs, gallop, clicks GI/Abdominal exam: Present: soft, normal bowel sounds. Absent: distended, tenderness, guarding, rebound, rigid Extremities exam: Present: normal inspection, full ROM, normal capillary refill. Absent: tenderness, pedal edema, joint swelling, calf tenderness Back exam: Present: normal inspection Neurological exam: Present: alert, oriented X3, CN II-XII intact Psychiatric exam: Present: normal affect, normal mood Skin exam: Present: warm, dry, intact, normal color. Absent: rash Course Vital Signs 02/28/23 20:23 Temperature 98.4 F Pulse Rate 65 Respiratory 16 Rate Blood Pressure 139/100 O2 Sat by Pulse 96 Oximetry - Reevaluation(s) Reevaluation #1: 02/28/23 22:01 Attic record is reviewed Reevaluation #2: 02/28/23 22:01 Patient symptoms improved Reevaluation #3: 02/28/23 22:01 Patient informed results questions answered Reevaluation #4: 02/28/23 22:01 Was pt. sent in by a medical professional or institution (, PA, DIRECTOR SECURITY MANAGEMENT, urgent care, hospital, or skilled nursing...) When possible be specific @ -no Did you speak to anyone other than the patient for history (EMS, parent, family, police, friend...)? What history was obtained from this source @ -no Did you review nursing and triage notes (agree or disagree)? Why? @ -agree Are old charts reviewed (outside hosp., previous admission, EMS record, old EKG, old radiological studies, urgent care reports/EKG's, skilled nursing records)? Report findings @ -yes Differential Diagnosis (chest pain, altered mental status, abdominal pain women, abdominal pain men, vaginal bleeding, weakness, fever, dyspnea, syncope, headache, dizziness, GI bleed, back pain, seizure, CVA, palpatations, mental health, musculoskeletal)? @ -prior EKG interpreted by me (3pts min.). @ -no X-rays interpreted by me (1pt min.). @ -no CT interpreted by me (1pt min.). @ -no U/S interpreted by me (1pt. min.). @ -no What testing was considered but not performed or refused? (CT, X-rays, U/S, labs)? Why? @ -none What meds were considered but not given or refused? Why? @ -none Did you discuss the management of the patient with other professionals (professionals i.e. , PA, DIRECTOR SECURITY MANAGEMENT, lab, RT, psych nurse, social work case manager, veneer patcher, teacher, fire officer, machine adjuster leader case trim)? Give summary @ -no Was smoking cessation discussed for >3mins.? @ -no Was critical care preformed (if so, how long)? @ -no Were there social determinants of health that impacted care today? How? (Homelessness, low income, unemployed, alcoholism, drug addiction, transportation, low edu. Level, literacy, decrease access to med. care, snf, rehab)? @ -none Was there de-escalation of care discussed even if they declined (Discuss DNR or withdrawal of care, Hospice)? DNR status @ -no What co-morbidities impacted this encounter? (DM, HTN, Smoking, COPD, CAD, Cancer, CVA, ARF, Chemo, Hep., AIDS, mental health diagnosis, sleep apnea, morbid obesity)? @ -none Was patient admitted / discharged? Hospital course, mention meds given and route, prescriptions, significant lab abnormalities, going to OR and other pertinent info. @ - 52 male to the emergency department for evaluation of facial lymphadenopathy in pain. Gingivitis, will place on antibiotics and can be discharged home Discharge Undiagnosed new problem with uncertain prognosis? @ -no Drug Therapy requiring intensive monitoring for toxicity (Heparin, Nitro, Insulin, Cardizem)? @ -no Were any procedures done? @ -no Diagnosis/symptom? @ -Gingivitis and dental pain Acute, or Chronic, or Acute on Chronic? @ -Acute Uncomplicated (without systemic symptoms) or Complicated (systemic symptoms)? @ -Complicated Side effects of treatment? @ -no Exacerbation, Progression, or Severe Exacerbation? @ -exacerbation Poses a threat to life or bodily function? How? (Chest pain, [place], [place], pneumonia, PE, COPD, DKA, ARF, appy, cholecystitis, CVA, Diverticulitis, Homicidal, Suicidal, threat to staff... and all critical care pts) @ -no Medical Decision Making - Medical Decision Making 52 male to the emergency department for evaluation of facial lymphadenopathy in pain. Gingivitis, will place on antibiotics and can be discharged home Disposition Clinical Impression: Left facial pain, Pain, dental, Ankle sprain Disposition: HOME SELF-CARE Condition: Good Instructions (If sedation given, give patient instructions): Acute Headache (ED) Prescriptions: Amoxic-Pot Clav 875-125Mg [Augmentin 875-125] 1 tab PO Q12HR #20 tablet Is patient prescribed a controlled substance at d/c from ED?: No Referrals: None,Stated [Primary Care Provider] - 1-2 days Time of Disposition: 22:00
[2023-02-28] MEDS ORDERED: AMOXIC-POT CLAV 875-125MG 1 EACH TAB PO STA (21:58)
[2023-02-28] MEDS ORDERED: IBUPROFEN 800 MG TAB PO STA (21:58)
[2023-02-28] MEDS ORDERED: IBUPROFEN 600 MG STARTER PACK 4 TAB BTL PO STA (21:58)
[2023-02-28] MEDS ORDERED: AMOXIC-POT CLAV 875MG STARTER PACK 2 TAB BTL PO STA (21:58)
== END 2023-02-28 22:38 | disposition home or self-care (01) ==
LOC: EC 20:19
DX: S93.402A Sprain of unspecified ligament of left ankle, initial encounter (principal); K08.89 Other specified disorders of teeth and supporting structures; J45.909 Unspecified asthma, uncomplicated; J44.9 Chronic obstructive pulmonary disease, unspecified; E11.9 Type 2 diabetes mellitus without complications; K21.9 Gastro-esophageal reflux disease without esophagitis; E78.5 Hyperlipidemia, unspecified; I10 Essential (primary) hypertension; G47.30 Sleep apnea, unspecified; M19.90 Unspecified osteoarthritis, unspecified site; F17.200 Nicotine dependence, unspecified, uncomplicated; Z79.82 Long term (current) use of aspirin; Z79.51 Long term (current) use of inhaled steroids; Z79.84 Long term (current) use of oral hypoglycemic drugs; Z86.73 Personal history of transient ischemic attack (TIA), and cerebral infarction without residual deficits; Z79.899 Other long term (current) drug therapy; Z91.040 Latex allergy status; Z91.09 Other allergy status, other than to drugs and biological substances; Z88.1 Allergy status to other antibiotic agents; Z88.2 Allergy status to sulfonamides; Z88.6 Allergy status to analgesic agent; Z88.8 Allergy status to other drugs, medicaments and biological substances; Z86.59 Personal history of other mental and behavioral disorders; Z79.1 Long term (current) use of non-steroidal anti-inflammatories (NSAID); X58.XXXA Exposure to other specified factors, initial encounter
CPT/HCPCS: 99284

== ENCOUNTER 2023-04-03 09:05 | Emergency (ER) | payer MEDICARE, OTHER ==
[2023-04-03] MEDS ORDERED: MAG HYDROX/AL HYDROX/SIMETH 30 ML, HYOSCYAMINE ELIXIR 10 ML, LIDOCAINE 2% GLYDO JELLY 1... PO STA ×3 (09:16)
[2023-04-03 09:28] VITALS: TEMP 99.4
--- NOTE | 2023-04-03 09:28 | ED ---
General Adult HPI - General Chief complaint: Abdominal Pain Stated complaint: Gerd Time Seen by Provider: 04/03/23 09:10 Source: patient, EMS, RN notes reviewed, old records reviewed Mode of arrival: EMS Limitations: no limitations - History of Present Illness Initial comments: This is a 53-year-old male who presents emergency Department complaining that he is having increasing GERD and he doesn't think his medications are working. Patient states he's had some abdominal pain and doesn't want to eat because of it. Patient states started last night and got worse this morning. Patient denies any fever chills patient denies any vomiting patient denies any diarrhea. Patient's any back pain. Patient denies chest pain difficulty breathing or shortness of breath. Patient denies any headache patient denies numbness weakness. - Related Data Home Medications Medication Instructions Recorded Confirmed Tamsulosin [Flomax] 0.4 mg PO HS@199904/12/20 01/10/23 Aspirin EC [Ecotrin Low Dose] 81 mg PO DAILY@0800 07/09/20 01/10/23 amLODIPine [Norvasc] 10 mg PO DAILY@0804/10/21 01/10/23 Atorvastatin [Lipitor] 10 mg PO HS@199901/19/22 01/10/23 Cetirizine HCl [Zyrtec] 10 mg PO DAILY@1700 01/19/22 01/10/23 lisinopriL [Zestril] 2.5 mg PO DAILY@0800 01/19/22 01/10/23 Ergocalciferol (Vitamin D2) 1,250 mcg PO FR 08/18/22 01/10/23 [Drisdol (50,000 Iu)] Acetaminophen-Codeine 300-30mg 1 tab PO Q6H PRN 12/17/22 01/10/23 [Tylenol w/codeine #3] Diphenoxylate HCl/Atropine 1 tab PO QID@08,12,17,12/17/22 01/10/23 [Lomotil 2.5-0.025 mg Tablet] Melatonin 5 mg PO HS@199912/17/22 01/10/23 Albuterol Inhaler [Ventolin Hfa 2 puff INHALATION RT-Q6H PRN 01/10/23 01/10/23 Inhaler] Budesonide/Formoterol Fumarate 2 puff INHALATION RT-BID 01/10/23 01/10/23 [Symbicort 80-4.5 Mcg Inhaler] Omeprazole 20 mg PO DAILY PRN 01/10/23 01/10/23 Previous Rx's Medication Instructions Recorded Metoclopramide [Reglan] 10 mg PO Q6H PRN #15 tab 12/16/22 Ondansetron Odt [Zofran ODT] 4 mg PO Q8HR PRN #15 tab 12/16/22 Meloxicam [Mobic] 7.5 mg PO DAILY@0800 PRN #0 12/18/22 metFORMIN HCL ER [Glucophage XR] 1,000 mg PO BID@0800,1999 #120 tab 12/18/22 ARIPiprazole [Abilify] 10 mg PO DAILY@0800 30 Days #60 tab 01/13/23 Mirtazapine [Remeron] 30 mg PO HS@1999 30 Days #30 tab 01/13/23 Nicotine Gum (Polacrilex) 2 mg BUCCAL Q4HR PRN 15 Days #80 01/13/23 [Nicorette] pieceofgum traZODone HCL [Desyrel] 100 mg PO HS 30 Days #30 tab 01/13/23 Amoxic-Pot Clav 875-125Mg 1 tab PO Q12HR #20 tablet 02/28/23 [Augmentin 875-125] Allergies Allergy/AdvReac Type Severity Reaction Status Date / Time dicyclomine HCl [From Bentyl] Allergy Unknown Dyspnea Verified 04/03/23 09:16 latex Allergy Unknown Rash/Hives Verified 04/03/23 09:16 adhesive AdvReac Unknown Itching Verified 04/03/23 09:16 ciprofloxacin AdvReac Unknown Nausea Verified 04/03/23 09:16 Macrolide Antibiotics AdvReac Unknown Nausea Verified 04/03/23 09:16 sulfamethoxazole AdvReac Unknown Unknown Verified 04/03/23 09:16 [From Bactrim] trimethoprim [From Bactrim] AdvReac Unknown Unknown Verified 04/03/23 09:16 Review of Systems ROS Statement: Those systems with pertinent positive or pertinent negative responses have been documented in the HPI. ROS Other: All systems not noted in ROS Statement are negative. Past Medical History Past Medical History: Asthma, Chest Pain / Angina, COPD, CVA/TIA, Diabetes Mellitus, GERD/Reflux, Hearing Disorder / Deafness, Hyperlipidemia, Hypertension, Liver Disease, Osteoarthritis (OA), Pneumonia, Seizure Disorder, Sleep Apnea/CPAP/BIPAP Additional Past Medical History / Comment(s): states CVA at 35 yrs old, no weakness @ this time. states seizure at 35 yrs old., DDD- back & neck pain., carpal tunnel syndrome., hx. of cyst on kidney, uses cpap., states having abdominal pain with diarrhea and nausea ., Lives in a custodial with 2 other people. Has a caregiver.n Has [employer] public guardian. History of Any Multi-Drug Resistant Organisms: None Reported Past Surgical History: Heart Catheterization, Orthopedic Surgery Additional Past Surgical History / Comment(s): Cysts removed, left thumb surgery, colonoscopy 08/24/2019. Skin tags removed from both eyes. Past Anesthesia/Blood Transfusion Reactions: Motion Sickness, Postoperative Nausea & Vomiting (PONV) Past Psychological History: Anxiety, Bipolar, Depression, Schizophrenia Smoking Status: Current every day smoker Past Alcohol Use History: None Reported Past Drug Use History: None Reported - Past Family History Brother(s) Family Medical History: Diabetes Mellitus Additional Family Medical History / Comment(s): Patient has 2 brothers. One from complications from diabetes. The second is alive with diabetes. Sister(s) Family Medical History: Cancer Additional Family Medical History / Comment(s): Patient has one sister with breast cancer. Patient does not have any children. Father Family Medical History: Cancer Additional Family Medical History / Comment(s): Father in his 40s or 50s from colon cancer. Mother Family Medical History: Cancer Additional Family Medical History / Comment(s): Mother at age 68 from lung cancer. General Exam - General Exam Comments Initial Comments: GENERAL: Patient is well-developed and well-nourished. Patient is nontoxic and well- hydrated and is in no acute distress. ENT: Neck is soft and supple. No significant lymphadenopathy is noted. Oropharynx is clear. Moist mucous membranes. Neck has full range of motion without eliciting any pain. EYES: The sclera were anicteric and conjunctiva were pink and moist. Extraocular movements were intact and pupils were equal round and reactive to light. Eyelids were unremarkable. PULMONARY: Unlabored respirations. Good breath sounds bilaterally. No audible rales rhonchi or wheezing was noted. CARDIOVASCULAR: There is a regular rate and rhythm without any murmurs gallops or rubs. ABDOMEN: Soft and nontender with normal bowel sounds. Absolutely no abdominal pain patient patient is in no distress SKIN: Skin is clear with no lesions or rashes and otherwise unremarkable. NEUROLOGIC: Patient is alert and oriented x3. Cranial nerves II through XII are grossly intact. Motor and sensory are also intact. Normal speech, volume and content. Symmetrical smile. MUSCULOSKELETAL: Normal extremities with adequate strength and full range of motion. LYMPHATICS: No significant lymphadenopathy is noted PSYCHIATRIC: Normal psychiatric evaluation. Limitations: no limitations Course Vital Signs 04/03/23 09:09 Temperature 99.4 F Pulse Rate 64 Respiratory 20 Rate Blood Pressure 134/78 O2 Sat by Pulse 99 Oximetry Medical Decision Making - Medical Decision Making EKG doesn't remember myself. EKG shows a sinus rhythm at 61 bpm MI interval is 148 QRS is 90 QT interval 470 QTC is 419. Patient's EKG shows no ST segment elevation or depression Was pt. sent in by a medical professional or institution (Dr. PA, CUSTOMER OPERATIONS INTERN, urgent care, hospital, or [facility]...) When possible be specific @ -No Did you speak to anyone other than the patient for history (EMS, parent, family, police, friend...)? What history was obtained from this source @ -No Did you review nursing and triage notes (agree or disagree)? Why? @ -I reviewed and agree with nursing and triage notes Were old charts reviewed (outside hosp., previous admission, EMS record, old EKG, old radiological studies, urgent care reports/EKG's, [facility] records)? Report findings @ -I reviewed prior charts. Differential Diagnosis (chest pain, altered mental status, abdominal pain women, abdominal pain men, vaginal bleeding, weakness, fever, dyspnea, syncope, headache, dizziness, GI bleed, back pain, seizure, CVA, palpatations, mental health, musculoskeletal)? @ -Differential Abdominal Pain Men: Appendicitis, cholecystitis, diverticulosis, ischemic bowel, pancreatitis, hepatitis, UTI, gastroenteritis, AAA, incarcerated hernia, bowel obstruction, constipation, inflammatory bowel, hepatitis, peptic ulcer disease, splenic infarction, perforated viscus, testicular torsion, this is not meant to be an all-inclusive list EKG interpreted by me (3pts min.). @ -As above X-rays interpreted by me (1pt min.). @ -None done CT interpreted by me (1pt min.). @ -None done U/S interpreted by me (1pt. min.). @ -None done What testing was considered but not performed or refused? (CT, X-rays, U/S, labs)? Why? @ -None What meds were considered but not given or refused? Why? @ -None Did you discuss the management of the patient with other professionals (professionals i.e. , PA, CUSTOMER OPERATIONS INTERN, lab, RT, psych nurse, director social welfare, supervisor refractory products, teacher, light armored reconnaissance officer, registered nurse hh case manager)? Give summary @ -No Was smoking cessation discussed for >3mins.? @ -No Was critical care preformed (if so, how long)? @ -No Were there social determinants of health that impacted care today? How? (Homelessness, low income, unemployed, alcoholism, drug addiction, transportation, low edu. Level, literacy, decrease access to med. care, [facility], rehab)? @ -No Was there de-escalation of care discussed even if they declined (Discuss DNR or withdrawal of care, Hospice)? DNR status @ -No What co-morbidities impacted this encounter? (DM, HTN, Smoking, COPD, CAD, Cance r, CVA, ARF, Chemo, Hep., AIDS, mental health diagnosis, sleep apnea, morbid obesity)? @ -None Was patient admitted / discharged? Hospital course, mention meds given and route, prescriptions, significant lab abnormalities, going to OR and other pertinent info. @ -Received a GI cocktail which seemed to make him feel more comfortable. Patient's abdomen was reexamined multiple times in he had no abdominal pain to palpation. Patient was also given Zofran for mild nausea. Patient was comfortable going home and he will get some nausea pills to go home. Undiagnosed new problem with uncertain prognosis? @ -No Drug Therapy requiring intensive monitoring for toxicity (Heparin, Nitro, Insulin, Cardizem)? @ -No Were any procedures done? @ -No Diagnosis/symptom? @ -Nausea Acute, or Chronic, or Acute on Chronic? @ -Acute Uncomplicated (without systemic symptoms) or Complicated (systemic symptoms)? @ -Uncomplicated Side effects of treatment? @ -No Exacerbation, Progression, or Severe Exacerbation? @ -No Poses a threat to life or bodily function? How? (Chest pain, USA, LA, pneumonia, PE, COPD, DKA, ARF, appy, cholecystitis, CVA, Diverticulitis, Homicidal, Suicidal, threat to staff... and all critical care pts) @ -No Disposition Clinical Impression: Nausea Disposition: HOME SELF-CARE Condition: Good Instructions (If sedation given, give patient instructions): Acute Nausea and Vomiting (ED) Is patient prescribed a controlled substance at d/c from ED?: No Referrals: Rmaya Saul MD [Primary Care Provider] - 1-2 days Time of Disposition: 10:15
[2023-04-03] MEDS ORDERED: ONDANSETRON ODT 4 MG TAB PO STA (09:57)
[2023-04-03] MEDS ORDERED: ONDANSETRON 4 MG ODT STARTER PACK 2 TAB BTL PO STA (10:36)
[2023-04-03 10:50] VITALS: BP 103/72; PULSE 80; RESP 18
== END 2023-04-03 10:49 | disposition home or self-care (01) ==
LOC: EC 09:05
DX: R11.0 Nausea (principal); E11.9 Type 2 diabetes mellitus without complications; I10 Essential (primary) hypertension; J44.9 Chronic obstructive pulmonary disease, unspecified; E78.5 Hyperlipidemia, unspecified; K21.9 Gastro-esophageal reflux disease without esophagitis; F17.200 Nicotine dependence, unspecified, uncomplicated; Z79.82 Long term (current) use of aspirin; Z79.51 Long term (current) use of inhaled steroids; Z79.899 Other long term (current) drug therapy; Z88.1 Allergy status to other antibiotic agents; Z88.2 Allergy status to sulfonamides; Z91.040 Latex allergy status; Z91.09 Other allergy status, other than to drugs and biological substances; Z86.73 Personal history of transient ischemic attack (TIA), and cerebral infarction without residual deficits
CPT/HCPCS: 93005; 99285; S0119

== ENCOUNTER 2023-04-15 11:52 | Emergency (ER) | payer MEDICARE, OTHER ==
[2023-04-15 12:00] VITALS: PULSE 96
[2023-04-15 13:16] LABS: Amphetamine Screen,Urine Not Detected (NotDetected); Barbiturate Screen,Urine Not Detected (NotDetected); Benzodiazepines Screen,Urine Not Detected (NotDetected); Cocaine Screen,Urine Not Detected (NotDetected); Methadone Screen, Urine Not Detected (NotDetected); Opiate Screen,Urine Not Detected (NotDetected); Oxycodone Screen, Urine Not Detected (NotDetected); Phencyclidine Screen,Urine Not Detected (NotDetected); Tricyclic Antidepressant,Urine Not Detected (NotDetected); Urn Cannabinoid Scrn Not Detected (NotDetected)
--- NOTE | 2023-04-15 13:21 | ED ---
Psych HPI - General Source: patient, RN notes reviewed Mode of arrival: ambulatory Limitations: no limitations <Attila Thibodeaux - Last Filed: 04/15/23 14:54> - History of Present Illness MD Complaint: suicidal ideation, feels depressed Associated Psychiatric Symptoms: depression, suicidal ideation Quality: constant, getting worse Associated Symptoms: denies other symptoms Treatments Prior to Arrival: placed on mental health hold If Self Harm: admits thoughts of self harm <Andrea Sheppard - Last Filed: 04/17/23 16:10> - General Chief Complaint: Psychiatric Symptoms Stated Complaint: Suicidal Time Seen by Provider: 04/15/23 12:00 - History of Present Illness Initial Comments: 53 year old male presents emergency Department chief complaint of depression, suicidal ideation. Patient states that he's been upset at staff members she states is feeling suicidal because this. Denies any self-harm. Denies any physical complaints denies alcohol or drug use. (Attila Thibodeaux) 53 male to the emergency department for evaluation of suicidal thoughts and depression (Andrea Sheppard) - Related Data Home Medications Medication Instructions Recorded Confirmed Tamsulosin [Flomax] 0.4 mg PO HS@199904/12/20 01/10/23 Aspirin EC [Ecotrin Low Dose] 81 mg PO DAILY@0807/09/20 01/10/23 amLODIPine [Norvasc] 10 mg PO DAILY@0804/10/21 01/10/23 Atorvastatin [Lipitor] 10 mg PO HS@199901/19/22 01/10/23 Cetirizine HCl [Zyrtec] 10 mg PO DAILY@1700 01/19/22 01/10/23 lisinopriL [Zestril] 2.5 mg PO DAILY@0801/19/22 01/10/23 Ergocalciferol (Vitamin D2) 1,250 mcg PO FR 08/18/22 01/10/23 [Drisdol (50,000 Iu)] Acetaminophen-Codeine 300-30mg 1 tab PO Q6H PRN 12/17/22 01/10/23 [Tylenol w/codeine #3] Diphenoxylate HCl/Atropine 1 tab PO QID@08,12,17,20 12/17/22 01/10/23 [Lomotil 2.5-0.025 mg Tablet] Melatonin 5 mg PO HS@199912/17/22 01/10/23 Albuterol Inhaler [Ventolin Hfa 2 puff INHALATION RT-Q6H PRN 01/10/23 01/10/23 Inhaler] Budesonide/Formoterol Fumarate 2 puff INHALATION RT-BID 01/10/23 01/10/23 [Symbicort 80-4.5 Mcg Inhaler] Omeprazole 20 mg PO DAILY PRN 01/10/23 01/10/23 Previous Rx's Medication Instructions Recorded Metoclopramide [Reglan] 10 mg PO Q6H PRN #15 tab 12/16/22 Ondansetron Odt [Zofran ODT] 4 mg PO Q8HR PRN #15 tab 12/16/22 Meloxicam [Mobic] 7.5 mg PO DAILY@0800 PRN #0 12/18/22 metFORMIN HCL ER [Glucophage XR] 1,000 mg PO BID@799,1999 #120 tab 12/18/22 ARIPiprazole [Abilify] 10 mg PO DAILY@0800 30 Days #60 tab 01/13/23 Mirtazapine [Remeron] 30 mg PO HS@1999 30 Days #30 tab 01/13/23 Nicotine Gum (Polacrilex) 2 mg BUCCAL Q4HR PRN 15 Days #80 01/13/23 [Nicorette] pieceofgum traZODone HCL [Desyrel] 100 mg PO HS 30 Days #30 tab 01/13/23 Amoxic-Pot Clav 875-125Mg 1 tab PO Q12HR #20 tablet 02/28/23 [Augmentin 875-125] Allergies Allergy/AdvReac Type Severity Reaction Status Date / Time dicyclomine HCl [From Bentyl] Allergy Unknown Dyspnea Verified 04/15/23 11:57 latex Allergy Unknown Rash/Hives Verified 04/15/23 11:57 adhesive AdvReac Unknown Itching Verified 04/15/23 11:57 ciprofloxacin AdvReac Unknown Nausea Verified 04/15/23 11:57 Macrolide Antibiotics AdvReac Unknown Nausea Verified 04/15/23 11:57 sulfamethoxazole AdvReac Unknown Unknown Verified 04/15/23 11:57 [From Bactrim] trimethoprim [From Bactrim] AdvReac Unknown Unknown Verified 04/15/23 11:57 Review of Systems ROS Other: All systems not noted in ROS Statement are negative. <Attila Thibodeaux - Last Filed: 04/15/23 14:54> ROS Other: All systems not noted in ROS Statement are negative. <ValarieAndrea B - Last Filed: 04/17/23 16:10> ROS Statement: Those systems with pertinent positive or pertinent negative responses have been documented in the HPI. Past Medical History Past Medical History: Asthma, Chest Pain / Angina, COPD, CVA/TIA, Diabetes Mellitus, GERD/Reflux, Hearing Disorder / Deafness, Hyperlipidemia, Hypertension, Liver Disease, Osteoarthritis (OA), Pneumonia, Seizure Disorder, Sleep Apnea/CPAP/BIPAP Additional Past Medical History / Comment(s): states CVA at 35 yrs old, no weakness @ this time. states seizure at 35 yrs old., DDD- back & neck pain., carpal tunnel syndrome., hx. of cyst on kidney, uses cpap., states having abdominal pain with diarrhea and nausea ., Lives in a residential with 2 other people. Has a caregiver.n Has [employer] public guardian. History of Any Multi-Drug Resistant Organisms: None Reported Past Surgical History: Heart Catheterization, Orthopedic Surgery Additional Past Surgical History / Comment(s): Cysts removed, left thumb surgery, colonoscopy 08/24/2019. Skin tags removed from both eyes. Past Anesthesia/Blood Transfusion Reactions: Motion Sickness, Postoperative Nausea & Vomiting (PONV) Past Psychological History: Anxiety, Bipolar, Depression, Schizophrenia Smoking Status: Current every day smoker Past Alcohol Use History: None Reported Past Drug Use History: None Reported - Past Family History Brother(s) Family Medical History: Diabetes Mellitus Additional Family Medical History / Comment(s): Patient has 2 brothers. One from complications from diabetes. The second is alive with diabetes. Sister(s) Family Medical History: Cancer Additional Family Medical History / Comment(s): Patient has one sister with breast cancer. Patient does not have any children. Father Family Medical History: Cancer Additional Family Medical History / Comment(s): Father in his 40s or 50s from colon cancer. Mother Family Medical History: Cancer Additional Family Medical History / Comment(s): Mother at age 68 from lung cancer. <Attila Thibodeaux - Last Filed: 04/15/23 14:54> General Exam Limitations: no limitations General appearance: alert, in no apparent distress Head exam: Present: atraumatic, normocephalic, normal inspection Neck exam: Present: normal inspection, full ROM. Absent: tenderness, meningismus, lymphadenopathy Respiratory exam: Present: normal lung sounds bilaterally. Absent: respiratory distress, wheezes, rales, rhonchi, stridor Cardiovascular Exam: Present: regular rate, normal rhythm, normal heart sounds. Absent: systolic murmur, diastolic murmur, rubs, gallop, clicks GI/Abdominal exam: Present: soft, normal bowel sounds. Absent: distended, tenderness, guarding, rebound, rigid Neurological exam: Present: alert Psychiatric exam: Present: depressed, flat affect <Attila Thibodeaux - Last Filed: 04/15/23 14:54> Course <Andrea Sheppard - Last Filed: 04/17/23 16:10> Vital Signs 04/15/23 04/15/23 11:54 17:21 Temperature 98 F 98.0 F Pulse Rate 96 96 Respiratory 16 18 Rate Blood Pressure 143/83 140/78 O2 Sat by Pulse 97 98 Oximetry - Reevaluation(s) Reevaluation #1: Record is reviewed (Andrea Sheppard) Reevaluation #2: Medical clear for psychiatric evaluation (Andrea Sheppard) Medical Decision Making <Attila Thibodeaux - Last Filed: 04/15/23 14:54> <Andrea Sheppard - Last Filed: 04/17/23 16:10> - Medical Decision Making Was pt. sent in by a medical professional or institution (, PA, APPEALS ANALYST, urgent care, hospital, or skilled nursing...) When possible be specific @ -No Did you speak to anyone other than the patient for history (EMS, parent, family, police, friend...)? What history was obtained from this source @ -No Did you review nursing and triage notes (agree or disagree)? Why? @ -I reviewed and agree with nursing and triage notes Were old charts reviewed (outside hosp., previous admission, EMS record, old EKG, old radiological studies, urgent care reports/EKG's, skilled nursing records)? Report findings @ -No old charts were reviewed Differential Diagnosis (chest pain, altered mental status, abdominal pain women, abdominal pain men, vaginal bleeding, weakness, fever, dyspnea, syncope, headache, dizziness, GI bleed, back pain, seizure, CVA, palpatations, mental health, musculoskeletal)? @ -Differential Mental Health Depression, anxiety, bipolar, psychosis, schizophrenia, borderline personality, situational depression, adjustment disorder, behavioral disorder, brain tumor, malingering, substance abuse, encephalopathy, medication reaction, dementia, hypothyroidism, degenerative neurologic disorder, lupus.... This is not meant to be all-inclusive listble EKG interpreted by me (3pts min.). @ -None X-rays interpreted by me (1pt min.). @ -None done CT interpreted by me (1pt min.). @ -None done U/S interpreted by me (1pt. min.). @ -None done What testing was considered but not performed or refused? (CT, X-rays, U/S, la bs)? Why? @ -None What meds were considered but not given or refused? Why? @ -None Did you discuss the management of the patient with other professionals (professionals i.e. , PA, APPEALS ANALYST, lab, RT, psych nurse, secondary social studies teacher, tail puller, teacher, fire prevention officer, test case developer)? Give summary @ -EPS to evaluate the patient Was smoking cessation discussed for >3mins.? @ -No Was critical care preformed (if so, how long)? @ -No Were there social determinants of health that impacted care today? How? (Homelessness, low income, unemployed, alcoholism, drug addiction, transportation, low edu. Level, literacy, decrease access to med. care, detention, rehab)? @ -No Was there de-escalation of care discussed even if they declined (Discuss DNR or withdrawal of care, Hospice)? DNR status @ -No What co-morbidities impacted this encounter? (DM, HTN, Smoking, COPD, CAD, Cancer, CVA, ARF, Chemo, Hep., AIDS, mental health diagnosis, sleep apnea, morbid obesity)? @ -None Was patient admitted / discharged? Hospital course, mention meds given and route, prescriptions, significant lab abnormalities, going to OR and other pertinent info. @ -Patient's care signed out to Dr. Sheppard pending EPS evaluation Undiagnosed new problem with uncertain prognosis? @ -No Drug Therapy requiring intensive monitoring for toxicity (Heparin, Nitro, Insulin, Cardizem)? @ -No Were any procedures done? @ -No (Attila Thibodeaux) 53 male seen and evaluated psychiatry and can be discharged home, patient is safe to discharge and did sign safety plan (Andrea Sheppard) - Lab Data Lab Results 04/15/23 Range/Units 12:49 Urine Opiates Screen Not Detected (NotDetected) Ur Oxycodone Screen Not Detected (NotDetected) Urine Methadone Screen Not Detected (NotDetected) Ur Propoxyphene Screen Not Detected (NotDetected) Ur Barbiturates Screen Not Detected (NotDetected) U Tricyclic Antidepress Not Detected (NotDetected) Ur Phencyclidine Scrn Not Detected (NotDetected) Ur Amphetamines Screen Not Detected (NotDetected) U Methamphetamines Scrn Not Detected (NotDetected) U Benzodiazepines Scrn Not Detected (NotDetected) Urine Cocaine Screen Not Detected (NotDetected) U Marijuana (THC) Screen Not Detected (NotDetected) Disposition <Attila Thibodeaux - Last Filed: 04/15/23 14:54> Is patient prescribed a controlled substance at d/c from ED?: No <Andrea Sheppard - Last Filed: 04/17/23 16:10> Clinical Impression: Adjustment reaction of adult life, Schizo affective schizophrenia Disposition: HOME SELF-CARE Condition: Fair Instructions (If sedation given, give patient instructions): Schizophrenia (ED) Referrals: Ramya Saul MD [Primary Care Provider] - 1-2 days
[2023-04-15 17:31] VITALS: BP 140/78; RESP 18; TEMP 98
== END 2023-04-15 17:22 | disposition home or self-care (01) ==
LOC: EC 11:52
DX: F43.20 Adjustment disorder, unspecified (principal); F20.9 Schizophrenia, unspecified; E11.9 Type 2 diabetes mellitus without complications; E78.5 Hyperlipidemia, unspecified; F17.200 Nicotine dependence, unspecified, uncomplicated; J44.9 Chronic obstructive pulmonary disease, unspecified; K21.9 Gastro-esophageal reflux disease without esophagitis; G47.30 Sleep apnea, unspecified; I10 Essential (primary) hypertension; Z79.51 Long term (current) use of inhaled steroids; Z79.82 Long term (current) use of aspirin; Z79.899 Other long term (current) drug therapy; Z86.59 Personal history of other mental and behavioral disorders; Z88.2 Allergy status to sulfonamides; Z91.040 Latex allergy status; Z88.1 Allergy status to other antibiotic agents; Z91.09 Other allergy status, other than to drugs and biological substances
CPT/HCPCS: 80306; 82075; 99285

== ENCOUNTER 2023-04-26 16:28 | Emergency (ER) | payer MEDICARE, OTHER ==
[2023-04-26 16:41] VITALS: BP 116/73; PULSE 79; RESP 16; TEMP 98.2
--- NOTE | 2023-04-26 16:42 | ED ---
Nausea/Vomiting/Diarrhea HPI - General Chief complaint: Nausea/Vomiting/Diarrhea Stated complaint: body pains/aches Source: patient Mode of arrival: ambulatory Limitations: no limitations - History of Present Illness Initial comments: Quick note completed by MICHI Cerda. Patient complains of nausea vomiting and diarrhea. Has had a mild cough. - Related Data Home Medications Medication Instructions Recorded Confirmed Tamsulosin [Flomax] 0.4 mg PO HS@199904/12/20 01/10/23 Aspirin EC [Ecotrin Low Dose] 81 mg PO DAILY@0800 07/09/20 01/10/23 amLODIPine [Norvasc] 10 mg PO DAILY@0800 04/10/21 01/10/23 Atorvastatin [Lipitor] 10 mg PO HS@199901/19/22 01/10/23 Cetirizine HCl [Zyrtec] 10 mg PO DAILY@1700 01/19/22 01/10/23 lisinopriL [Zestril] 2.5 mg PO DAILY@0801/19/22 01/10/23 Ergocalciferol (Vitamin D2) 1,250 mcg PO FR 08/18/22 01/10/23 [Drisdol (50,000 Iu)] Acetaminophen-Codeine 300-30mg 1 tab PO Q6H PRN 12/17/22 01/10/23 [Tylenol w/codeine #3] Diphenoxylate HCl/Atropine 1 tab PO QID@08,12,17,20 12/17/22 01/10/23 [Lomotil 2.5-0.025 mg Tablet] Melatonin 5 mg PO HS@199912/17/22 01/10/23 Albuterol Inhaler [Ventolin Hfa 2 puff INHALATION RT-Q6H PRN 01/10/23 01/10/23 Inhaler] Budesonide/Formoterol Fumarate 2 puff INHALATION RT-BID 01/10/23 01/10/23 [Symbicort 80-4.5 Mcg Inhaler] Omeprazole 20 mg PO DAILY PRN 01/10/23 01/10/23 Previous Rx's Medication Instructions Recorded Metoclopramide [Reglan] 10 mg PO Q6H PRN #15 tab 12/16/22 Ondansetron Odt [Zofran ODT] 4 mg PO Q8HR PRN #15 tab 12/16/22 Meloxicam [Mobic] 7.5 mg PO DAILY@0800 PRN #0 12/18/22 metFORMIN HCL ER [Glucophage XR] 1,000 mg PO BID@799,1999 #120 tab 12/18/22 ARIPiprazole [Abilify] 10 mg PO DAILY@0800 30 Days #60 tab 01/13/23 Mirtazapine [Remeron] 30 mg PO HS@1999 30 Days #30 tab 01/13/23 Nicotine Gum (Polacrilex) 2 mg BUCCAL Q4HR PRN 15 Days #80 01/13/23 [Nicorette] pieceofgum traZODone HCL [Desyrel] 100 mg PO HS 30 Days #30 tab 01/13/23 Amoxic-Pot Clav 875-125Mg 1 tab PO Q12HR #20 tablet 02/28/23 [Augmentin 875-125] Ondansetron Odt [Zofran Odt] 4 mg PO Q8HR PRN #12 tab 05/08/23 Trimethobenzamide [Tigan] 300 mg PO TID PRN #20 capsule 05/22/23 guaiFENesin [Mucinex] 600 mg PO Q12H #24 tab 05/22/23 methylPREDNISolone Dose Pack 4 mg PO DIRECTED #21 tab 05/22/23 [Medrol Dose Pack] Allergies Allergy/AdvReac Type Severity Reaction Status Date / Time dicyclomine HCl [From Bentyl] Allergy Unknown Dyspnea Verified 05/22/23 10:31 latex Allergy Unknown Rash/Hives Verified 05/22/23 10:31 adhesive AdvReac Unknown Itching Verified 05/22/23 10:31 ciprofloxacin AdvReac Unknown Nausea Verified 05/22/23 10:31 Macrolide Antibiotics AdvReac Unknown Nausea Verified 05/22/23 10:31 sulfamethoxazole AdvReac Unknown Unknown Verified 05/22/23 10:31 [From Bactrim] trimethoprim [From Bactrim] AdvReac Unknown Unknown Verified 05/22/23 10:31 Review of Systems ROS Statement: Those systems with pertinent positive or pertinent negative responses have been documented in the HPI. ROS Other: All systems not noted in ROS Statement are negative. Past Medical History Past Medical History: Asthma, Chest Pain / Angina, COPD, CVA/TIA, Diabetes Mellitus, GERD/Reflux, Hearing Disorder / Deafness, Hyperlipidemia, Hypertension, Liver Disease, Osteoarthritis (OA), Pneumonia, Seizure Disorder, Sleep Apnea/CPAP/BIPAP Additional Past Medical History / Comment(s): states CVA at 35 yrs old, no weakness @ this time. states seizure at 35 yrs old., DDD- back & neck pain., carpal tunnel syndrome., hx. of cyst on kidney, uses cpap., states having abdominal pain with diarrhea and nausea ., Lives in a ch[facility] with 2 other people. Has a caregiver.n Has [employer] public guardian. History of Any Multi-Drug Resistant Organisms: None Reported Past Surgical History: Heart Catheterization, Orthopedic Surgery Additional Past Surgical History / Comment(s): Cysts removed, left thumb surgery, colonoscopy 08/24/2019. Skin tags removed from both eyes. Past Anesthesia/Blood Transfusion Reactions: Motion Sickness, Postoperative Nausea & Vomiting (PONV) Past Psychological History: Anxiety, Bipolar, Depression, Schizophrenia Smoking Status: Current every day smoker Past Alcohol Use History: None Reported Past Drug Use History: None Reported - Past Family History Brother(s) Family Medical History: Diabetes Mellitus Additional Family Medical History / Comment(s): Patient has 2 brothers. One di ed from complications from diabetes. The second is alive with diabetes. Sister(s) Family Medical History: Cancer Additional Family Medical History / Comment(s): Patient has one sister with breast cancer. Patient does not have any children. Father Family Medical History: Cancer Additional Family Medical History / Comment(s): Father in his 40s or 50s from colon cancer. Mother Family Medical History: Cancer Additional Family Medical History / Comment(s): Mother at age 68 from lung cancer. General Exam - General Exam Comments Initial Comments: Visual Physical Exam Vital signs reviewed General: Well-appearing, nontoxic, no acute distress. Head: Normocephalic, atraumatic Eyes: PERRLA, EOMI ENT: Airway patent Chest: Nonlabored breathing Skin: No visual rash, normal skin tone Neuro: Alert and oriented 3 Musculoskeletal: No gross abnormalities Limitations: no limitations Course Vital Signs 04/26/23 16:35 Temperature 98.2 F Pulse Rate 79 Respiratory 16 Rate Blood Pressure 116/73 O2 Sat by Pulse 98 Oximetry Medical Decision Making - Medical Decision Making Quick note portion completed by myself Karen Mascarin, PAC. ELectronically signed Karen BORDEN Patient left AGAINST MEDICAL ADVICE from the waiting out without full proper assessment and evaluation - Lab Data Lab Results 04/26/23 Range/Units 16:56 Urine Color Colorless Urine Appearance Clear (Clear) Urine pH 5.5 (5.0-8.0) Ur Specific [place] 1.015 (1.001-1.035) Urine Protein Negative (Negative) Urine Glucose (UA) 4+ H (Negative) Urine Ketones Negative (Negative) Urine Blood Negative (Negative) Urine Nitrite Negative (Negative) Urine Bilirubin Negative (Negative) Urine Urobilinogen <2.0 (<2.0) mg/dL Ur Leukocyte Esterase Negative (Negative) Disposition Clinical Impression: Vomiting, Diarrhea, Cough Disposition: LEFT AGAINST MEDICAL ADVICE Referrals: Ramya Saul MD [Primary Care Provider] - 1-2 days
--- NOTE | 2023-04-26 17:24 | XR ---
EXAMINATION TYPE: XR chest 2V DATE OF EXAM: 04/26/2023 5:10 PM CLINICAL INDICATION:Male, 53 years old with history of cough; [facility] COMPARISON: Chest radiographs from 03/28/2023. TECHNIQUE: XR chest 2V Frontal and lateral views of the chest. FINDINGS: Lungs/Pleura: There is no evidence of pleural effusion, focal consolidation, or pneumothorax. Pulmonary vascularity: Unremarkable. Heart/mediastinum: Cardiomediastinal silhouette is unremarkable. Musculoskeletal: No acute osseous pathology. IMPRESSION: No acute cardiopulmonary disease/process.
[2023-04-26 17:35] LABS: Appearance,Urine Clear (Clear); Bilirubin,Urine Negative (Negative); Blood,Urine Negative (Negative); Color,Urine Colorless; Glucose,Urine (UA) 4+ (Negative); Ketones,Urine Negative (Negative); Leukocyte Esterase,Urine Negative (Negative); Nitrite,Urine Negative (Negative); PH, Urine 5.5 (5.0-8.0); Protein,Urine Negative (Negative); Specific Gravity,Urine 1.015 (1.001-1.035); Urobilinogen,Urine <2.0 mg/dL (<2.0)
== END 2023-04-26 18:42 | disposition left against medical advice (07) ==
LOC: EC 16:28
DX: R11.2 Nausea with vomiting, unspecified (principal); R05.9 Cough, unspecified; R19.7 Diarrhea, unspecified; I10 Essential (primary) hypertension; K21.9 Gastro-esophageal reflux disease without esophagitis; M19.90 Unspecified osteoarthritis, unspecified site; E11.9 Type 2 diabetes mellitus without complications; E78.5 Hyperlipidemia, unspecified; J44.89 Other specified chronic obstructive pulmonary disease; F31.9 Bipolar disorder, unspecified; F41.9 Anxiety disorder, unspecified; F17.200 Nicotine dependence, unspecified, uncomplicated; Z86.73 Personal history of transient ischemic attack (TIA), and cerebral infarction without residual deficits; Z88.2 Allergy status to sulfonamides; Z91.040 Latex allergy status; Z88.1 Allergy status to other antibiotic agents; Z88.8 Allergy status to other drugs, medicaments and biological substances; Z79.82 Long term (current) use of aspirin; Z79.51 Long term (current) use of inhaled steroids; Z79.899 Other long term (current) drug therapy; Z53.29 Procedure and treatment not carried out because of patient's decision for other reasons
CPT/HCPCS: 71046; 81003; 99284

== ENCOUNTER 2023-05-04 23:15 | Emergency (ER) | payer MEDICARE, OTHER ==
[2023-05-04 23:29] VITALS: BP 129/73; PULSE 68; RESP 20; TEMP 98.5
[2023-05-04] MEDS ORDERED: ORPHENADRINE 30 MG/ML 2 ML VIAL IM STA (23:33)
[2023-05-04] MEDS ORDERED: CYCLOBENZAPRINE 10MG STARTER 3 TAB BTL PO STA (23:36)
--- NOTE | 2023-05-04 23:36 | ED ---
Extremity Problem HPI - General Chief complaint: Extremity Problem,Nontraumatic Stated complaint: Leg Pain Time Seen by Provider: 05/04/23 23:17 Source: patient, EMS, RN notes reviewed Mode of arrival: EMS Limitations: no limitations - History of Present Illness Initial comments: 53-year-old male presents emergency Department chief complaint of right leg pain. He states it starts at his back and radiates down. Denies any swelling of his leg denies any trauma states he felt like he injured his back. No history DVT. Denies Any chest pain or shortness of breath. Patient states is better at rest it is worse with movement. Patient offers no complaints. - Related Data Home Medications Medication Instructions Recorded Confirmed Tamsulosin [Flomax] 0.4 mg PO HS@199904/12/20 01/10/23 Aspirin EC [Ecotrin Low Dose] 81 mg PO DAILY@0800 07/09/20 01/10/23 amLODIPine [Norvasc] 10 mg PO DAILY@0800 04/10/21 01/10/23 Atorvastatin [Lipitor] 10 mg PO HS@199901/19/22 01/10/23 Cetirizine HCl [Zyrtec] 10 mg PO DAILY@1700 01/19/22 01/10/23 lisinopriL [Zestril] 2.5 mg PO DAILY@0800 01/19/22 01/10/23 Ergocalciferol (Vitamin D2) 1,250 mcg PO FR 08/18/22 01/10/23 [Drisdol (50,000 Iu)] Acetaminophen-Codeine 300-30mg 1 tab PO Q6H PRN 12/17/22 01/10/23 [Tylenol w/codeine #3] Diphenoxylate HCl/Atropine 1 tab PO QID@,,,12/17/22 01/10/23 [Lomotil 2.5-0.025 mg Tablet] Melatonin 5 mg PO HS@199912/17/22 01/10/23 Albuterol Inhaler [Ventolin Hfa 2 puff INHALATION RT-Q6H PRN 01/10/23 01/10/23 Inhaler] Budesonide/Formoterol Fumarate 2 puff INHALATION RT-BID 01/10/23 01/10/23 [Symbicort 80-4.5 Mcg Inhaler] Omeprazole 20 mg PO DAILY PRN 01/10/23 01/10/23 Previous Rx's Medication Instructions Recorded Metoclopramide [Reglan] 10 mg PO Q6H PRN #15 tab 12/16/22 Ondansetron Odt [Zofran ODT] 4 mg PO Q8HR PRN #15 tab 12/16/22 Meloxicam [Mobic] 7.5 mg PO DAILY@0800 PRN #0 12/18/22 metFORMIN HCL ER [Glucophage XR] 1,000 mg PO BID@0800,1999 #120 tab 12/18/22 ARIPiprazole [Abilify] 10 mg PO DAILY@0800 30 Days #60 tab 01/13/23 Mirtazapine [Remeron] 30 mg PO HS@1999 30 Days #30 tab 01/13/23 Nicotine Gum (Polacrilex) 2 mg BUCCAL Q4HR PRN 15 Days #80 01/13/23 [Nicorette] pieceofgum traZODone HCL [Desyrel] 100 mg PO HS 30 Days #30 tab 01/13/23 Amoxic-Pot Clav 875-125Mg 1 tab PO Q12HR #20 tablet 02/28/23 [Augmentin 875-125] Allergies Allergy/AdvReac Type Severity Reaction Status Date / Time dicyclomine HCl [From Bentyl] Allergy Unknown Dyspnea Verified 05/04/23 23:24 latex Allergy Unknown Rash/Hives Verified 05/04/23 23:24 adhesive AdvReac Unknown Itching Verified 05/04/23 23:24 ciprofloxacin AdvReac Unknown Nausea Verified 05/04/23 23:24 Macrolide Antibiotics AdvReac Unknown Nausea Verified 05/04/23 23:24 sulfamethoxazole AdvReac Unknown Unknown Verified 05/04/23 23:24 [From Bactrim] trimethoprim [From Bactrim] AdvReac Unknown Unknown Verified 05/04/23 23:24 Review of Systems ROS Statement: Those systems with pertinent positive or pertinent negative responses have been documented in the HPI. ROS Other: All systems not noted in ROS Statement are negative. Past Medical History Past Medical History: Asthma, Chest Pain / Angina, COPD, CVA/TIA, Diabetes Mellitus, GERD/Reflux, Hearing Disorder / Deafness, Hyperlipidemia, Hypertension, Liver Disease, Osteoarthritis (OA), Pneumonia, Seizure Disorder, Sleep Apnea/CPAP/BIPAP Additional Past Medical History / Comment(s): states CVA at 35 yrs old, no weakness @ this time. states seizure at 35 yrs old., DDD- back & neck pain., carpal tunnel syndrome., hx. of cyst on kidney, uses cpap., states having abdominal pain with diarrhea and nausea ., Lives in a halfway with 2 other people. Has a caregiver.n Has [employer] public guardian. History of Any Multi-Drug Resistant Organisms: None Reported Past Surgical History: Heart Catheterization, Orthopedic Surgery Additional Past Surgical History / Comment(s): Cysts removed, left thumb surgery, colonoscopy 08/24/2019. Skin tags removed from both eyes. Past Anesthesia/Blood Transfusion Reactions: Motion Sickness, Postoperative Nausea & Vomiting (PONV) Past Psychological History: Anxiety, Bipolar, Depression, Schizophrenia Smoking Status: Current every day smoker Past Alcohol Use History: None Reported Past Drug Use History: None Reported - Past Family History Brother(s) Family Medical History: Diabetes Mellitus Additional Family Medical History / Comment(s): Patient has 2 brothers. One from complications from diabetes. The second is alive with diabetes. Sister(s) Family Medical History: Cancer Additional Family Medical History / Comment(s): Patient has one sister with breast cancer. Patient does not have any children. Father Family Medical History: Cancer Additional Family Medical History / Comment(s): Father in his 40s or 50s from colon cancer. Mother Family Medical History: Cancer Additional Family Medical History / Comment(s): Mother at age 68 from lung cancer. General Exam Limitations: no limitations General appearance: alert, in no apparent distress Head exam: Present: atraumatic, normocephalic, normal inspection Neck exam: Present: normal inspection. Absent: tenderness, meningismus, lymphadenopathy Respiratory exam: Present: normal lung sounds bilaterally. Absent: respiratory distress, wheezes, rales, rhonchi, stridor Cardiovascular Exam: Present: regular rate, normal rhythm, normal heart sounds. Absent: systolic murmur, diastolic murmur, rubs, gallop, clicks Extremities exam: Present: other (Bilateral lower extremities full range of motion neurovascular intact no swelling or erythema no Tenderness) Back exam: Present: full ROM, tenderness, paraspinal tenderness. Absent: vertebral tenderness Neurological exam: Present: reflexes normal. Absent: motor sensory deficit Course Vital Signs 05/04/23 23:22 Temperature 98.5 F Pulse Rate 68 Respiratory 20 Rate Blood Pressure 129/73 O2 Sat by Pulse 100 Oximetry Medical Decision Making - Medical Decision Making Was pt. sent in by a medical professional or institution (, SEAN, [employer], urgent care, hospital, or fpc...) When possible be specific @ -No Did you speak to anyone other than the patient for history (EMS, parent, family, police, friend...)? What history was obtained from this source @ -No Did you review nursing and triage notes (agree or disagree)? Why? @ -I reviewed and agree with nursing and triage notes Were old charts reviewed (outside hosp., previous admission, EMS record, old EKG, old radiological studies, urgent care reports/EKG's, fpc records)? Report findings @ -No old charts were reviewed Differential Diagnosis (chest pain, altered mental status, abdominal pain women, abdominal pain men, vaginal bleeding, weakness, fever, dyspnea, syncope, headache, dizziness, GI bleed, back pain, seizure, CVA, palpatations, mental health, musculoskeletal)? @ -Differential Back Pain: Strain, zoster, cauda equina syndrome, epidural abscess, vertebral osteomyelitis, discitis, fracture, subluxation, disc herniation, DJD, spinal stenosis, dissection, AAA, pancreatitis, peptic ulcer disease, pyelonephritis, kidney stone, this is not meant to be an all-inclusive list.le EKG interpreted by me (3pts min.). @ -None X-rays interpreted by me (1pt min.). @ -None done CT interpreted by me (1pt min.). @ -None done U/S interpreted by me (1pt. min.). @ -None done What testing was considered but not performed or refused? (CT, X-rays, U/S, labs)? Why? @ -None What meds were considered but not given or refused? Why? @ -None Did you discuss the management of the patient with other professionals (professionals i.e. SEAN Cordova, [employer] WORKER, lab, RT, psych nurse, social economist, rate quoting operator, teacher, licensing officer, special education case manager)? Give summary @ -No Was smoking cessation discussed for >3mins.? @ -No Was critical care preformed (if so, how long)? @ -No Were there social determinants of health that impacted care today? How? (Homelessness, low income, unemployed, alcoholism, drug addiction, transportation, low edu. Level, literacy, decrease access to med. care, detention, rehab)? @ -No Was there de-escalation of care discussed even if they declined (Discuss DNR or withdrawal of care, Hospice)? DNR status @ -No What co-morbidities impacted this encounter? (DM, HTN, Smoking, COPD, CAD, Cancer, CVA, ARF, Chemo, Hep., AIDS, mental health diagnosis, sleep apnea, morbid obesity)? @ -None Was patient admitted / discharged? Hospital course, mention meds given and route, prescriptions, significant lab abnormalities, going to OR and other pertinent info. @ -Discharge patient has lumbar radiculopathy, right leg pain. Patient is discharged in stable condition and he received Toradol prior arrival states it did help. He has no swelling no concern for DVT. Undiagnosed new problem with uncertain prognosis? @ -No Drug Therapy requiring intensive monitoring for toxicity (Heparin, Nitro, Insulin, Cardizem)? @ -No Were any procedures done? @ -No Diagnosis/symptom? @ -Lumbar radiculopathy, right leg pain Acute, or Chronic, or Acute on Chronic? @ -Acute Uncomplicated (without systemic symptoms) or Complicated (systemic symptoms)? @ -Uncomplicated Side effects of treatment? @ -No Exacerbation, Progression, or Severe Exacerbation? @ -No Poses a threat to life or bodily function? How? (Chest pain, [place], NH, pneumonia, PE, COPD, DKA, ARF, appy, cholecystitis, CVA, Diverticulitis, Homicidal, Suicidal, threat to staff... and all critical care pts) @ -No Disposition Clinical Impression: Lumbar radiculopathy, acute, Right leg pain Disposition: HOME SELF-CARE Condition: Stable Instructions (If sedation given, give patient instructions): Lumbar Radiculopathy (ED) Additional Instructions: Please return to the Emergency Department if symptoms worsen or any other concerns. Is patient prescribed a controlled substance at d/c from ED?: No Referrals: Ramya Saul MD [Primary Care Provider] - 1-2 days Time of Disposition: 23:35
== END 2023-05-05 00:06 | disposition home or self-care (01) ==
LOC: EC 23:15
DX: M54.16 Radiculopathy, lumbar region (principal); J44.9 Chronic obstructive pulmonary disease, unspecified; E11.9 Type 2 diabetes mellitus without complications; I10 Essential (primary) hypertension; G47.30 Sleep apnea, unspecified; F41.9 Anxiety disorder, unspecified; F31.9 Bipolar disorder, unspecified; E78.5 Hyperlipidemia, unspecified; F17.200 Nicotine dependence, unspecified, uncomplicated; K21.9 Gastro-esophageal reflux disease without esophagitis; M19.90 Unspecified osteoarthritis, unspecified site; Z86.73 Personal history of transient ischemic attack (TIA), and cerebral infarction without residual deficits; Z79.51 Long term (current) use of inhaled steroids; Z79.899 Other long term (current) drug therapy; Z79.82 Long term (current) use of aspirin; Z91.040 Latex allergy status; Z88.1 Allergy status to other antibiotic agents; Z91.09 Other allergy status, other than to drugs and biological substances; Z88.2 Allergy status to sulfonamides; Z79.1 Long term (current) use of non-steroidal anti-inflammatories (NSAID)
CPT/HCPCS: 99284; 96372; J2360

== ENCOUNTER 2023-05-05 11:03 | Emergency (ER) | payer MEDICARE, OTHER ==
[2023-05-05] MEDS ORDERED: ONDANSETRON ODT 4 MG TAB PO STA (12:31)
[2023-05-05] MEDS ORDERED: KETOROLAC 15 MG/ML 1 ML VIAL IM STA (12:31)
--- NOTE | 2023-05-05 12:36 | ED ---
General Adult HPI - General Chief complaint: Nausea/Vomiting/Diarrhea Stated complaint: LEG PAIN Time Seen by Provider: 05/05/23 12:17 Source: patient, RN notes reviewed Mode of arrival: EMS Limitations: no limitations - History of Present Illness Initial comments: Patient is a pleasant 53-year-old male presenting to the emergency department with concerns for nausea and leg swelling. Patient does have history of chronic back pain. Patient states he does have back pain with radiation down his leg. No incontinence or retention of bowel or bladder. No leg weakness. Patient is concerned his right leg may be swollen. Patient also has some nausea today. No fever. No abdominal pain. - Related Data Home Medications Medication Instructions Recorded Confirmed Tamsulosin [Flomax] 0.4 mg PO HS@199904/12/20 01/10/23 Aspirin EC [Ecotrin Low Dose] 81 mg PO DAILY@0800 07/09/20 01/10/23 amLODIPine [Norvasc] 10 mg PO DAILY@0800 04/10/21 01/10/23 Atorvastatin [Lipitor] 10 mg PO HS@199901/19/22 01/10/23 Cetirizine HCl [Zyrtec] 10 mg PO DAILY@1700 01/19/22 01/10/23 lisinopriL [Zestril] 2.5 mg PO DAILY@0800 01/19/22 01/10/23 Ergocalciferol (Vitamin D2) 1,250 mcg PO FR 08/18/22 01/10/23 [Drisdol (50,000 Iu)] Acetaminophen-Codeine 300-30mg 1 tab PO Q6H PRN 12/17/22 01/10/23 [Tylenol w/codeine #3] Diphenoxylate HCl/Atropine 1 tab PO QID@,,,12/17/22 01/10/23 [Lomotil 2.5-0.025 mg Tablet] Melatonin 5 mg PO HS@199912/17/22 01/10/23 Albuterol Inhaler [Ventolin Hfa 2 puff INHALATION RT-Q6H PRN 01/10/23 01/10/23 Inhaler] Budesonide/Formoterol Fumarate 2 puff INHALATION RT-BID 01/10/23 01/10/23 [Symbicort 80-4.5 Mcg Inhaler] Omeprazole 20 mg PO DAILY PRN 01/10/23 01/10/23 Previous Rx's Medication Instructions Recorded Metoclopramide [Reglan] 10 mg PO Q6H PRN #15 tab 12/16/22 Ondansetron Odt [Zofran ODT] 4 mg PO Q8HR PRN #15 tab 12/16/22 Meloxicam [Mobic] 7.5 mg PO DAILY@0800 PRN #0 12/18/22 metFORMIN HCL ER [Glucophage XR] 1,000 mg PO BID@08,1999 #120 tab 12/18/22 ARIPiprazole [Abilify] 10 mg PO DAILY@0800 30 Days #60 tab 01/13/23 Mirtazapine [Remeron] 30 mg PO HS@1999 30 Days #30 tab 01/13/23 Nicotine Gum (Polacrilex) 2 mg BUCCAL Q4HR PRN 15 Days #80 01/13/23 [Nicorette] pieceofgum traZODone HCL [Desyrel] 100 mg PO HS 30 Days #30 tab 01/13/23 Amoxic-Pot Clav 875-125Mg 1 tab PO Q12HR #20 tablet 02/28/23 [Augmentin 875-125] Allergies Allergy/AdvReac Type Severity Reaction Status Date / Time dicyclomine HCl [From Bentyl] Allergy Unknown Dyspnea Verified 05/04/23 23:24 latex Allergy Unknown Rash/Hives Verified 05/04/23 23:24 adhesive AdvReac Unknown Itching Verified 05/04/23 23:24 ciprofloxacin AdvReac Unknown Nausea Verified 05/04/23 23:24 Macrolide Antibiotics AdvReac Unknown Nausea Verified 05/04/23 23:24 sulfamethoxazole AdvReac Unknown Unknown Verified 05/04/23 23:24 [From Bactrim] trimethoprim [From Bactrim] AdvReac Unknown Unknown Verified 05/04/23 23:24 Review of Systems ROS Statement: Those systems with pertinent positive or pertinent negative responses have been documented in the HPI. ROS Other: All systems not noted in ROS Statement are negative. Constitutional: Denies: fever Eyes: Denies: eye pain ENT: Denies: ear pain Respiratory: Denies: cough, dyspnea Cardiovascular: Denies: chest pain Endocrine: Denies: fatigue Gastrointestinal: Reports: as per HPI, nausea. Denies: abdominal pain, vomiting Musculoskeletal: Reports: as per HPI, back pain Past Medical History Past Medical History: Asthma, Chest Pain / Angina, COPD, CVA/TIA, Diabetes Mellitus, GERD/Reflux, Hearing Disorder / Deafness, Hyperlipidemia, Hypertension, Liver Disease, Osteoarthritis (OA), Pneumonia, Seizure Disorder, Sleep Apnea/CPAP/BIPAP Additional Past Medical History / Comment(s): states CVA at 35 yrs old, no weakness @ this time. states seizure at 35 yrs old., DDD- back & neck pain., carpal tunnel syndrome., hx. of cyst on kidney, uses cpap., states having abdominal pain with diarrhea and nausea ., Lives in a intermediate with 2 other people. Has a caregiver.n Has [employer] public guardian. History of Any Multi-Drug Resistant Organisms: None Reported Past Surgical History: Heart Catheterization, Orthopedic Surgery Additional Past Surgical History / Comment(s): Cysts removed, left thumb surgery, colonoscopy 08/24/2019. Skin tags removed from both eyes. Past Anesthesia/Blood Transfusion Reactions: Motion Sickness, Postoperative Nausea & Vomiting (PONV) Past Psychological History: Anxiety, Bipolar, Depression, Schizophrenia Smoking Status: Current every day smoker Past Alcohol Use History: Rare Past Drug Use History: None Reported - Past Family History Brother(s) Family Medical History: Diabetes Mellitus Additional Family Medical History / Comment(s): Patient has 2 brothers. One from complications from diabetes. The second is alive with diabetes. Sister(s) Family Medical History: Cancer Additional Family Medical History / Comment(s): Patient has one sister with breast cancer. Patient does not have any children. Father Family Medical History: Cancer Additional Family Medical History / Comment(s): Father in his 40s or 50s from colon cancer. Mother Family Medical History: Cancer Additional Family Medical History / Comment(s): Mother at age 68 from lung cancer. General Exam Limitations: no limitations General appearance: alert, in no apparent distress Head exam: Present: normocephalic Eye exam: Present: normal appearance Neck exam: Present: normal inspection Respiratory exam: Present: normal lung sounds bilaterally Cardiovascular Exam: Present: regular rate, normal rhythm Expanded Peripheral pulses: 2+: Dorsalis Pedis (R) GI/Abdominal exam: Present: soft. Absent: distended, tenderness, guarding, rebound, rigid, pulsatile mass Extremities exam: Present: normal inspection, calf tenderness (Minimal Tenderness in the right), other (No significant leg swelling on exam). Absent: pedal edema Back exam: Present: vertebral tenderness (Mild tenderness lower lumbar spine) Neurological exam: Absent: motor sensory deficit (Distal extremities are neurovascularly intact) Psychiatric exam: Present: normal affect, normal mood Skin exam: Present: normal color Course Vital Signs 05/05/23 11:28 Temperature 99.4 F Pulse Rate 70 Respiratory 18 Rate Blood Pressure 111/78 O2 Sat by Pulse 97 Oximetry Medical Decision Making - Medical Decision Making Was pt. sent in by a medical professional or institution (, PA, WORK COUNSELOR, urgent care, hospital, or usp...) When possible be specific @ -No Did you speak to anyone other than the patient for history (EMS, parent, family, police, friend...)? What history was obtained from this source @ -No Did you review nursing and triage notes (agree or disagree)? Why? @ -I reviewed and agree with nursing and triage notes Were old charts reviewed (outside hosp., previous admission, EMS record, old EKG, old radiological studies, urgent care reports/EKG's, usp records)? Report findings @ -Previous medications reviewed Differential Diagnosis (chest pain, altered mental status, abdominal pain women, abdominal pain men, vaginal bleeding, weakness, fever, dyspnea, syncope, headache, dizziness, GI bleed, back pain, seizure, CVA, palpatations, mental health, musculoskeletal)? @ -Differential Musculoskeletal Muscular strain, contusion, ligament sprain, fracture, arthritis, septic arthritis, bursitis, cellulitis, muscle spasm, nerve compression, DVT, arterial occlusion, herpes zoster, electrolyte abnormality, tumor.... This is not meant to be in all inclusive list EKG interpreted by me (3pts min.). @ -As above X-rays interpreted by me (1pt min.). @ -None done CT interpreted by me (1pt min.). @ -None done U/S interpreted by me (1pt. min.). @ -Reports reviewed What testing was considered but not performed or refused? (CT, X-rays, U/S, labs)? Why? @ -None What meds were considered but not given or refused? Why? @ -None Did you discuss the management of the patient with other professionals (professionals i.e. , PA, WORK COUNSELOR, lab, RT, psych nurse, social science teacher, poultry husbandry teacher, teacher, airline pilot/first officer, rehabilitation caseworker)? Give summary @ -No Was smoking cessation discussed for >3mins.? @ -No Was critical care preformed (if so, how long)? @ -No Were there social determinants of health that impacted care today? How? (Homelessness, low income, unemployed, alcoholism, drug addiction, transportation, low edu. Level, literacy, decrease access to med. care, [facility], rehab)? @ -No Was there de-escalation of care discussed even if they declined (Discuss DNR or withdrawal of care, Hospice)? DNR status @ -No What co-morbidities impacted this encounter? (DM, HTN, Smoking, COPD, CAD, Cancer, CVA, ARF, Chemo, Hep., AIDS, mental health diagnosis, sleep apnea, morbid obesity)? @ -None Was patient admitted / discharged? Hospital course, mention meds given and route, prescriptions, significant lab abnormalities, going to OR and other pertinent info. @ -Patient reevaluated and resting comfortably in bed. patient refuses medications. Patient is receptive to try Reglan and Pepcid orally prior to discharge. Patient presents with chronic back pain with some radiation to the right leg. No red flags. No need for further imaging. Patient has not vomited. No abdominal pain. No tenderness on examination. Patient updated on results and need for follow-up. Undiagnosed new problem with uncertain prognosis? @ -No Drug Therapy requiring intensive monitoring for toxicity (Heparin, Nitro, Insulin, Cardizem)? @ -No Were any procedures done? @ -No Diagnosis/symptom? @ -Lumbar radiculopathy, nausea Acute, or Chronic, or Acute on Chronic? @ -Acute, acute Uncomplicated (without systemic symptoms) or Complicated (systemic symptoms)? @ -default Side effects of treatment? @ -No Exacerbation, Progression, or Severe Exacerbation? @ -No Poses a threat to life or bodily function? How? (Chest pain, USA, VT, pneumonia, PE, COPD, DKA, ARF, appy, cholecystitis, CVA, Diverticulitis, Homicidal, Suicidal, threat to staff... and all critical care pts) @ -No Disposition Clinical Impression: Lumbar radiculopathy, acute, Nausea Disposition: HOME SELF-CARE Condition: Stable Instructions (If sedation given, give patient instructions): Acute Nausea and Vomiting (ED), Lumbar Radiculopathy (ED), Lower Back Exercises (ED) Additional Instructions: Please do follow-up with your primary care physician in the next day or 2 for recheck. Return for vomiting, fever, abdominal pain, leg weakness, loss of control of bowel or bladder, worsening symptoms or any other concerns. Is patient prescribed a controlled substance at d/c from ED?: No Referrals: Ramya Saul MD [Primary Care Provider] - 1-2 days Time of Disposition: 13:54
--- NOTE | 2023-05-05 13:10 | US ---
EXAMINATION TYPE: US venous doppler duplex LE RT DATE OF EXAM: 05/05/2023 12:56 PM COMPARISON: Right lower extremity venous ultrasound 03/24/2020 CLINICAL INDICATION: Male, 53 years old with history of pain; full leg pain for 2 days, no injury, no h/o dvt SIDE PERFORMED: Right TECHNIQUE: The lower extremity deep venous system is examined utilizing real time linear array sonog ciara with graded compression, doppler sonography and color-flow sonography. VESSELS IMAGED: Common Femoral Vein Deep Femoral Vein Greater Saphenous Vein * Femoral Vein Popliteal Vein Small Saphenous Vein * Proximal Calf Veins (* superficial vessels) Grayscale, color doppler, spectral doppler imaging performed of the deep veins of the right lower ext remity. There is normal flow, compressibility, vascular waveforms. Right Leg: Negative for DVT IMPRESSION: No right lower extremity deep venous thrombosis.
[2023-05-05] MEDS ORDERED: METOCLOPRAMIDE 5 MG TAB PO STA (13:50)
[2023-05-05] MEDS ORDERED: FAMOTIDINE 20 MG TAB PO STA (13:50)
[2023-05-05 14:27] VITALS: BP 112/73; PULSE 64; RESP 16; TEMP 98.1
== END 2023-05-05 14:15 | disposition home or self-care (01) ==
LOC: EC 11:03
DX: M54.16 Radiculopathy, lumbar region (principal); R11.2 Nausea with vomiting, unspecified; E11.9 Type 2 diabetes mellitus without complications; E78.5 Hyperlipidemia, unspecified; J44.89 Other specified chronic obstructive pulmonary disease; K21.9 Gastro-esophageal reflux disease without esophagitis; I10 Essential (primary) hypertension; G47.30 Sleep apnea, unspecified; F31.9 Bipolar disorder, unspecified; F41.9 Anxiety disorder, unspecified; F17.200 Nicotine dependence, unspecified, uncomplicated; Z79.51 Long term (current) use of inhaled steroids; Z79.899 Other long term (current) drug therapy; Z79.82 Long term (current) use of aspirin; Z91.040 Latex allergy status; Z88.2 Allergy status to sulfonamides; Z88.8 Allergy status to other drugs, medicaments and biological substances; Z88.1 Allergy status to other antibiotic agents
CPT/HCPCS: 99285

== ENCOUNTER 2023-05-05 21:54 | Emergency (ER) | payer MEDICARE, OTHER ==
[2023-05-05 23:31] VITALS: RESP 18; TEMP 98.5
[2023-05-06] MEDS ORDERED: ONDANSETRON 4 MG ODT STARTER PACK 2 TAB BTL PO STA (02:43)
[2023-05-06] MEDS ORDERED: AZITHROMYCIN 500 MG TAB PO STA (02:43)
[2023-05-06] MEDS ORDERED: ONDANSETRON 4 MG TAB PO STA (02:43)
--- NOTE | 2023-05-06 02:44 | ED ---
Dizziness HPI - General Chief Complaint: Dizziness Stated Complaint: Bladder Infection Time Seen by Provider: 05/06/23 01:41 Source: patient, RN notes reviewed, old records reviewed Mode of arrival: ambulatory Limitations: no limitations - History of Present Illness Initial Comments: This 53-year-old male to the emergency department today for evaluation of multiple complaints, patient has symptoms of weakness as well as a runny nose, puffy eyes, sore throat. no cough congestion dizziness lightheadedness occasional abdominal pain with nausea no active vomiting. He states he has has not been feeling well. MD Complaint: dizziness, lightheadedness, other (Runny nose) -: days(s) Timing: gradual onset History of Same: No History of Trauma: No Severity: mild Improves With: nothing Worsens With: nothing Associated Symptoms: denies other symptoms - Related Data Home Medications Medication Instructions Recorded Confirmed Tamsulosin [Flomax] 0.4 mg PO HS@199904/12/20 01/10/23 Aspirin EC [Ecotrin Low Dose] 81 mg PO DAILY@0807/09/20 01/10/23 amLODIPine [Norvasc] 10 mg PO DAILY@79904/10/21 01/10/23 Atorvastatin [Lipitor] 10 mg PO HS@199901/19/22 01/10/23 Cetirizine HCl [Zyrtec] 10 mg PO DAILY@17001/19/22 01/10/23 lisinopriL [Zestril] 2.5 mg PO DAILY@0801/19/22 01/10/23 Ergocalciferol (Vitamin D2) 1,250 mcg PO FR 08/18/22 01/10/23 [Drisdol (50,000 Iu)] Acetaminophen-Codeine 300-30mg 1 tab PO Q6H PRN 12/17/22 01/10/23 [Tylenol w/codeine #3] Diphenoxylate HCl/Atropine 1 tab PO QID@,,,12/17/22 01/10/23 [Lomotil 2.5-0.025 mg Tablet] Melatonin 5 mg PO HS@199912/17/22 01/10/23 Albuterol Inhaler [Ventolin Hfa 2 puff INHALATION RT-Q6H PRN 01/10/23 01/10/23 Inhaler] Budesonide/Formoterol Fumarate 2 puff INHALATION RT-BID 01/10/23 01/10/23 [Symbicort 80-4.5 Mcg Inhaler] Omeprazole 20 mg PO DAILY PRN 01/10/23 01/10/23 Previous Rx's Medication Instructions Recorded Metoclopramide [Reglan] 10 mg PO Q6H PRN #15 tab 12/16/22 Ondansetron Odt [Zofran ODT] 4 mg PO Q8HR PRN #15 tab 12/16/22 Meloxicam [Mobic] 7.5 mg PO DAILY@0800 PRN #0 12/18/22 metFORMIN HCL ER [Glucophage XR] 1,000 mg PO BID@799,1999 #120 tab 12/18/22 ARIPiprazole [Abilify] 10 mg PO DAILY@0800 30 Days #60 tab 01/13/23 Mirtazapine [Remeron] 30 mg PO HS@1999 30 Days #30 tab 01/13/23 Nicotine Gum (Polacrilex) 2 mg BUCCAL Q4HR PRN 15 Days #80 01/13/23 [Nicorette] pieceofgum traZODone HCL [Desyrel] 100 mg PO HS 30 Days #30 tab 01/13/23 Amoxic-Pot Clav 875-125Mg 1 tab PO Q12HR #20 tablet 02/28/23 [Augmentin 875-125] Ondansetron Odt [Zofran Odt] 4 mg PO Q8HR PRN #12 tab 05/08/23 Allergies Allergy/AdvReac Type Severity Reaction Status Date / Time dicyclomine HCl [From Bentyl] Allergy Unknown Dyspnea Verified 05/04/23 23:24 latex Allergy Unknown Rash/Hives Verified 05/04/23 23:24 adhesive AdvReac Unknown Itching Verified 05/04/23 23:24 ciprofloxacin AdvReac Unknown Nausea Verified 05/04/23 23:24 Macrolide Antibiotics AdvReac Unknown Nausea Verified 05/04/23 23:24 sulfamethoxazole AdvReac Unknown Unknown Verified 05/04/23 23:24 [From Bactrim] trimethoprim [From Bactrim] AdvReac Unknown Unknown Verified 05/04/23 23:24 Review of Systems ROS Statement: Those systems with pertinent positive or pertinent negative responses have been documented in the HPI. ROS Other: All systems not noted in ROS Statement are negative. Past Medical History Past Medical History: Asthma, Chest Pain / Angina, COPD, CVA/TIA, Diabetes Mellitus, GERD/Reflux, Hearing Disorder / Deafness, Hyperlipidemia, Hypertension, Liver Disease, Osteoarthritis (OA), Pneumonia, Seizure Disorder, Sleep Apnea/CPAP/BIPAP Additional Past Medical History / Comment(s): states CVA at 35 yrs old, no weakness @ this time. states seizure at 35 yrs old., DDD- back & neck pain., carpal tunnel syndrome., hx. of cyst on kidney, uses cpap., states having abdominal pain with diarrhea and nausea ., Lives in a assisted with 2 other people. Has a caregiver.n Has [employer] public guardian. History of Any Multi-Drug Resistant Organisms: None Reported Past Surgical History: Heart Catheterization, Orthopedic Surgery Additional Past Surgical History / Comment(s): Cysts removed, left thumb surgery, colonoscopy 08/24/2019. Skin tags removed from both eyes. Past Anesthesia/Blood Transfusion Reactions: Motion Sickness, Postoperative Nausea & Vomiting (PONV) Past Psychological History: Anxiety, Bipolar, Depression, Schizophrenia Smoking Status: Current every day smoker Past Alcohol Use History: Rare Past Drug Use History: None Reported - Past Family History Brother(s) Family Medical History: Diabetes Mellitus Additional Family Medical History / Comment(s): Patient has 2 brothers. One from complications from diabetes. The second is alive with diabetes. Sister(s) Family Medical History: Cancer Additional Family Medical History / Comment(s): Patient has one sister with breast cancer. Patient does not have any children. Father Family Medical History: Cancer Additional Family Medical History / Comment(s): Father in his 40s or 50s from colon cancer. Mother Family Medical History: Cancer Additional Family Medical History / Comment(s): Mother at age 68 from lung cancer. General Exam Limitations: no limitations General appearance: alert, in no apparent distress Head exam: Present: atraumatic, normocephalic, normal inspection Eye exam: Present: normal appearance, PERRL, EOMI. Absent: scleral icterus, conjunctival injection, periorbital swelling ENT exam: Present: normal exam, mucous membranes moist Neck exam: Present: normal inspection. Absent: tenderness, meningismus, lymphadenopathy Respiratory exam: Present: normal lung sounds bilaterally. Absent: respiratory distress, wheezes, rales, rhonchi, stridor Cardiovascular Exam: Present: regular rate, normal rhythm, normal heart sounds. Absent: systolic murmur, diastolic murmur, rubs, gallop, clicks GI/Abdominal exam: Present: soft, normal bowel sounds. Absent: distended, tenderness, guarding, rebound, rigid Extremities exam: Present: normal inspection, full ROM, normal capillary refill. Absent: tenderness, pedal edema, joint swelling, calf tenderness Back exam: Present: normal inspection Neurological exam: Present: alert, oriented X3, CN II-XII intact Psychiatric exam: Present: normal affect, normal mood Skin exam: Present: warm, dry, intact, normal color. Absent: rash Course Vital Signs 05/05/23 05/06/23 22:16 03:16 Temperature 98.5 F 98.5 F Pulse Rate 63 60 Respiratory 18 18 Rate Blood Pressure 123/86 110/69 O2 Sat by Pulse 95 97 Oximetry - Reevaluation(s) Reevaluation #1: 05/06/23 Medical records reviewed Reevaluation #2: 05/06/23 Patient symptoms unchanged Reevaluation #3: 05/06/23 Patient informed results and questions have been answered Reevaluation #4: Was pt. sent in by a medical professional or institution (, PA, [employer] BAKER MACHINE, urgent care, hospital, or fdc...) When possible be specific @ -no Did you speak to anyone other than the patient for history (EMS, parent, family, police, friend...)? What history was obtained from this source @ -no Did you review nursing and triage notes (agree or disagree)? Why? @ -agree Are old charts reviewed (outside hosp., previous admission, EMS record, old EKG, old radiological studies, urgent care reports/EKG's, fdc records)? Report findings @ -yes Differential Diagnosis (chest pain, altered mental status, abdominal pain women, abdominal pain men, vaginal bleeding, weakness, fever, dyspnea, syncope, headache, dizziness, GI bleed, back pain, seizure, CVA, palpatations, mental health, musculoskeletal)? @ -prior EKG interpreted by me (3pts min.). @ -no X-rays interpreted by me (1pt min.). @ -no CT interpreted by me (1pt min.). @ -no U/S interpreted by me (1pt. min.). @ -no What testing was considered but not performed or refused? (CT, X-rays, U/S, labs)? Why? @ -none What meds were considered but not given or refused? Why? @ -none Did you discuss the management of the patient with other professionals (professionals i.e. Dr., PA, [employer] MACHINE, lab, RT, psych nurse, social media executive, cable engineer, teacher, environmental health officer, behavioral health case manager)? Give summary @ -no Was smoking cessation discussed for >3mins.? @ -no Was critical care preformed (if so, how long)? @ -no Were there social determinants of health that impacted care today? How? (Homelessness, low income, unemployed, alcoholism, drug addiction, transportation, low edu. Level, literacy, decrease access to med. care, [facility] [facility], rehab)? @ -none Was there de-escalation of care discussed even if they declined (Discuss DNR or withdrawal of care, Hospice)? DNR status @ -no What co-morbidities impacted this encounter? (DM, HTN, Smoking, COPD, CAD, Cancer, CVA, ARF, Chemo, Hep., AIDS, mental health diagnosis, sleep apnea, morbid obesity)? @ -none Was patient admitted / discharged? Hospital course, mention meds given and route, prescriptions, significant lab abnormalities, going to OR and other pertinent info. @ -53 male to the emergency department for evaluation. Patient presents today for evaluation of dizziness lightheadedness runny nose upper respiratory complaints. Patient feeling improved here in the ER feels good for discharge home Undiagnosed new problem with uncertain prognosis? @ -no Drug Therapy requiring intensive monitoring for toxicity (Heparin, Nitro, Insulin, Cardizem)? @ -no Were any procedures done? @ -no Diagnosis/symptom? @ -Upper respiratory infection, sinusitis viral Acute, or Chronic, or Acute on Chronic? @ -Acute Uncomplicated (without systemic symptoms) or Complicated (systemic symptoms)? @ -Complicated Side effects of treatment? @ -no Exacerbation, Progression, or Severe Exacerbation? @ -exacerbation Poses a threat to life or bodily function? How? (Chest pain, USA, PR, pneumonia, PE, COPD, DKA, ARF, appy, cholecystitis, CVA, Diverticulitis, Homicidal, Suic idal, threat to staff... and all critical care pts) @ -no Medical Decision Making - Medical Decision Making 53 male to the emergency department for evaluation. Patient presents today for evaluation of dizziness lightheadedness runny nose upper respiratory complaints. Patient feeling improved here in the ER feels good for discharge home Disposition Clinical Impression: Dizziness, Nausea & vomiting, Viral sinusitis Disposition: HOME SELF-CARE Condition: Good Instructions (If sedation given, give patient instructions): Dizziness (ED), Sinusitis (ED) Is patient prescribed a controlled substance at d/c from ED?: No Referrals: Ramya Saul MD [Primary Care Provider] - 1-2 days Time of Disposition: 02:45
[2023-05-06 03:18] VITALS: BP 110/69; PULSE 60
== END 2023-05-06 03:16 | disposition home or self-care (01) ==
LOC: EC 21:54
DX: R42 Dizziness and giddiness (principal); R11.2 Nausea with vomiting, unspecified; J32.9 Chronic sinusitis, unspecified; J44.89 Other specified chronic obstructive pulmonary disease; E11.9 Type 2 diabetes mellitus without complications; I10 Essential (primary) hypertension; G47.30 Sleep apnea, unspecified; F17.200 Nicotine dependence, unspecified, uncomplicated; E78.5 Hyperlipidemia, unspecified; M19.90 Unspecified osteoarthritis, unspecified site; K21.9 Gastro-esophageal reflux disease without esophagitis; Z79.1 Long term (current) use of non-steroidal anti-inflammatories (NSAID); Z79.82 Long term (current) use of aspirin; Z79.899 Other long term (current) drug therapy; Z79.51 Long term (current) use of inhaled steroids; Z86.59 Personal history of other mental and behavioral disorders; Z91.040 Latex allergy status; Z91.09 Other allergy status, other than to drugs and biological substances; Z88.2 Allergy status to sulfonamides; Z88.1 Allergy status to other antibiotic agents; Z88.8 Allergy status to other drugs, medicaments and biological substances
CPT/HCPCS: 99285; S0119

== ENCOUNTER 2023-05-08 01:10 | Emergency (ER) | payer MEDICARE, OTHER ==
[2023-05-08] MEDS ORDERED: methylPREDNISolone SOD SUCCI 125 MG/2 ML VIAL IM ONE (01:33)
[2023-05-08] MEDS ORDERED: IPRATROPIUM-ALBUTEROL 3 ML NEB INHALATION STA (01:33)
[2023-05-08 01:35] VITALS: BP 142/65; PULSE 72; RESP 16; TEMP 98.6
[2023-05-08 01:48] LABS: Appearance,Urine Clear (Clear); Bilirubin,Urine Negative (Negative); Blood,Urine Negative (Negative); Color,Urine Colorless; Glucose,Urine (UA) 4+ (Negative); Ketones,Urine Negative (Negative); Leukocyte Esterase,Urine Negative (Negative); Nitrite,Urine Negative (Negative); Protein,Urine Negative (Negative); Specific Gravity,Urine 1.008 (1.001-1.035); Urobilinogen,Urine <2.0 mg/dL (<2.0)
--- NOTE | 2023-05-08 02:40 | ED ---
General Adult HPI - General Chief complaint: Urogenital Stated complaint: UTI Time Seen by Provider: 05/08/23 01:22 Source: patient Mode of arrival: ambulatory Limitations: no limitations - History of Present Illness Initial comments: 53-year-old male well known to our ER presenting with multiple complaints. Patient is complaining of burning with urination as well as nausea for the last 3 days. He also admits to sore throat cough and congestion. No chest pain or difficulty breathing. No abdominal pain or flank pain. No vomiting. No fevers . No numbness, tingling, palpitations. Patient lives in a intermediate, he walked several blocks to be seen today. - Related Data Home Medications Medication Instructions Recorded Confirmed Tamsulosin [Flomax] 0.4 mg PO HS@199904/12/20 01/10/23 Aspirin EC [Ecotrin Low Dose] 81 mg PO DAILY@0800 07/09/20 01/10/23 amLODIPine [Norvasc] 10 mg PO DAILY@0804/10/21 01/10/23 Atorvastatin [Lipitor] 10 mg PO HS@199901/19/22 01/10/23 Cetirizine HCl [Zyrtec] 10 mg PO DAILY@1700 01/19/22 01/10/23 lisinopriL [Zestril] 2.5 mg PO DAILY@0800 01/19/22 01/10/23 Ergocalciferol (Vitamin D2) 1,250 mcg PO FR 08/18/22 01/10/23 [Drisdol (50,000 Iu)] Acetaminophen-Codeine 300-30mg 1 tab PO Q6H PRN 12/17/22 01/10/23 [Tylenol w/codeine #3] Diphenoxylate HCl/Atropine 1 tab PO QID@08,12,17,20 12/17/22 01/10/23 [Lomotil 2.5-0.025 mg Tablet] Melatonin 5 mg PO HS@199912/17/22 01/10/23 Albuterol Inhaler [Ventolin Hfa 2 puff INHALATION RT-Q6H PRN 01/10/23 01/10/23 Inhaler] Budesonide/Formoterol Fumarate 2 puff INHALATION RT-BID 01/10/23 01/10/23 [Symbicort 80-4.5 Mcg Inhaler] Omeprazole 20 mg PO DAILY PRN 01/10/23 01/10/23 Previous Rx's Medication Instructions Recorded Metoclopramide [Reglan] 10 mg PO Q6H PRN #15 tab 12/16/22 Ondansetron Odt [Zofran ODT] 4 mg PO Q8HR PRN #15 tab 12/16/22 Meloxicam [Mobic] 7.5 mg PO DAILY@0800 PRN #0 12/18/22 metFORMIN HCL ER [Glucophage XR] 1,000 mg PO BID@799,1999 #120 tab 12/18/22 ARIPiprazole [Abilify] 10 mg PO DAILY@799 30 Days #60 tab 01/13/23 Mirtazapine [Remeron] 30 mg PO HS@1999 30 Days #30 tab 01/13/23 Nicotine Gum (Polacrilex) 2 mg BUCCAL Q4HR PRN 15 Days #80 01/13/23 [Nicorette] pieceofgum traZODone HCL [Desyrel] 100 mg PO HS 30 Days #30 tab 01/13/23 Amoxic-Pot Clav 875-125Mg 1 tab PO Q12HR #20 tablet 02/28/23 [Augmentin 875-125] Ondansetron Odt [Zofran Odt] 4 mg PO Q8HR PRN #12 tab 05/08/23 Allergies Allergy/AdvReac Type Severity Reaction Status Date / Time dicyclomine HCl [From Bentyl] Allergy Unknown Dyspnea Verified 05/04/23 23:24 latex Allergy Unknown Rash/Hives Verified 05/04/23 23:24 adhesive AdvReac Unknown Itching Verified 05/04/23 23:24 ciprofloxacin AdvReac Unknown Nausea Verified 05/04/23 23:24 Macrolide Antibiotics AdvReac Unknown Nausea Verified 05/04/23 23:24 sulfamethoxazole AdvReac Unknown Unknown Verified 05/04/23 23:24 [From Bactrim] trimethoprim [From Bactrim] AdvReac Unknown Unknown Verified 05/04/23 23:24 Review of Systems ROS Statement: Those systems with pertinent positive or pertinent negative responses have been documented in the HPI. ROS Other: All systems not noted in ROS Statement are negative. Past Medical History Past Medical History: Asthma, Chest Pain / Angina, COPD, CVA/TIA, Diabetes Xiomy itus, GERD/Reflux, Hearing Disorder / Deafness, Hyperlipidemia, Hypertension, Liver Disease, Osteoarthritis (OA), Pneumonia, Seizure Disorder, Sleep Apnea/CPAP/BIPAP Additional Past Medical History / Comment(s): states CVA at 35 yrs old, no weakness @ this time. states seizure at 35 yrs old., DDD- back & neck pain., carpal tunnel syndrome., hx. of cyst on kidney, uses cpap., states having abdominal pain with diarrhea and nausea ., Lives in a intermediate with 2 other people. Has a caregiver.n Has [employer] public guardian. History of Any Multi-Drug Resistant Organisms: None Reported Past Surgical History: Heart Catheterization, Orthopedic Surgery Additional Past Surgical History / Comment(s): Cysts removed, left thumb surgery, colonoscopy 08/24/2019. Skin tags removed from both eyes. Past Anesthesia/Blood Transfusion Reactions: Motion Sickness, Postoperative Nausea & Vomiting (PONV) Past Psychological History: Anxiety, Bipolar, Depression, Schizophrenia Smoking Status: Current every day smoker Past Alcohol Use History: Rare Past Drug Use History: None Reported - Past Family History Brother(s) Family Medical History: Diabetes Mellitus Additional Family Medical History / Comment(s): Patient has 2 brothers. One from complications from diabetes. The second is alive with diabetes. Sister(s) Family Medical History: Cancer Additional Family Medical History / Comment(s): Patient has one sister with breast cancer. Patient does not have any children. Father Family Medical History: Cancer Additional Family Medical History / Comment(s): Father in his 40s or 50s from colon cancer. Mother Family Medical History: Cancer Additional Family Medical History / Comment(s): Mother at age 68 from lung cancer. General Exam Limitations: no limitations General appearance: alert, in no apparent distress Head exam: Present: atraumatic, normocephalic, normal inspection Eye exam: Present: normal appearance, EOMI Neck exam: Present: normal inspection, full ROM Respiratory exam: Present: wheezes (Mild wheezes heard on auscultation). Absent: respiratory distress, rales, rhonchi, stridor Cardiovascular Exam: Present: regular rate, normal rhythm, normal heart sounds. Absent: systolic murmur, diastolic murmur, rubs, gallop, clicks Neurological exam: Present: alert, oriented X3 Psychiatric exam: Present: normal affect, normal mood Skin exam: Present: warm, dry, intact, normal color. Absent: rash Course Vital Signs 05/08/23 05/08/23 05/08/23 01:17 02:00 02:07 Temperature 98.6 F Pulse Rate 72 72 72 Respiratory 16 Rate Blood Pressure 142/65 O2 Sat by Pulse 97 Oximetry Medical Decision Making - Medical Decision Making Was pt. sent in by a medical professional or institution (, SEAN, IRRIGATION INSTALLATION SPECIALIST, urgent care, hospital, or usp...) When possible be specific @ -No Did you speak to anyone other than the patient for history (EMS, parent, family, police, friend...)? What history was obtained from this source @ -No Did you review nursing and triage notes (agree or disagree)? Why? @ -I reviewed and agree with nursing and triage notes Were old charts reviewed (outside hosp., previous admission, EMS record, old EKG, old radiological studies, urgent care reports/EKG's, usp records)? Report findings @ -No old charts were reviewed Differential Diagnosis (chest pain, altered mental status, abdominal pain women, abdominal pain men, vaginal bleeding, weakness, fever, dyspnea, syncope, headache, dizziness, GI bleed, back pain, seizure, CVA, palpatations, mental health, musculoskeletal)? @ -Differential includes UTI, bladder dysfunction, URI, this is not an all inclusive list EKG interpreted by me (3pts min.). @ -As above X-rays interpreted by me (1pt min.). @ -Chest x-ray shows no acute process CT interpreted by me (1pt min.). @ -None done U/S interpreted by me (1pt. min.). @ -None done What testing was considered but not performed or refused? (CT, X-rays, U/S, labs)? Why? @ -None What meds were considered but not given or refused? Why? @ -None Did you discuss the management of the patient with other professionals (professionals i.e. SEAN Cordova, IRRIGATION INSTALLATION SPECIALIST, lab, RT, psych nurse, psychiatric social worker supervisor, balancer scale, teacher, liaison officer, porter sample case)? Give summary @ -No Was smoking cessation discussed for >3mins.? @ -No Was critical care preformed (if so, how long)? @ -No Were there social determinants of health that impacted care today? How? (Homelessness, low income, unemployed, alcoholism, drug addiction, transportation, low edu. Level, literacy, decrease access to med. care, [facility] [facility], rehab)? @ -No Was there de-escalation of care discussed even if they declined (Discuss DNR or withdrawal of care, Hospice)? DNR status @ -No What co-morbidities impacted this encounter? (DM, HTN, Smoking, COPD, CAD, Cancer, CVA, ARF, Chemo, Hep., AIDS, mental health diagnosis, sleep apnea, morbid obesity)? @ -None Was patient admitted / discharged? Hospital course, mention meds given and route, prescriptions, significant lab abnormalities, going to OR and other pertinent info. @ -53-year-old male presenting with chief complaint of dysuria and URI-like symptoms. History and physical exam were conducted. Mild wheezes heard on auscultation. Patient is given Solu-Medrol and DuoNeb. Urine shows no infectious process or bleeding. Patient is negative for influenza, RSV, and Covid. Negative chest x-ray. On reassessment patient is resting comfortably showing no signs of distress. He is educated on today's findings and supportive management at home. Follow-up with PCP. Report back to ER with any new or worsening symptoms. Discussed return parameters and answered all questions. Patient conveyed verbal understanding and agreed to the plan. I discussed this case in detail with my attending Dr. Smith Undiagnosed new problem with uncertain prognosis? @ -No Drug Therapy requiring intensive monitoring for toxicity (Heparin, Nitro, Insulin, Cardizem)? @ -No Were any procedures done? @ -No Diagnosis/symptom? @ -URI Acute, or Chronic, or Acute on Chronic? @ -Acute Uncomplicated (without systemic symptoms) or Complicated (systemic symptoms)? @ -Uncomplicated Side effects of treatment? @ -No Exacerbation, Progression, or Severe Exacerbation? @ -No Poses a threat to life or bodily function? How? (Chest pain, [place], CA, pneumonia, PE, COPD, DKA, ARF, appy, cholecystitis, CVA, Diverticulitis, Homicidal, Suicidal, threat to staff... and all critical care pts) @ -No - Lab Data Lab Results 11/11/23 11/11/23 Range/Units 01:40 01:40 Urine Color Colorless Urine Appearance Clear (Clear) Urine pH 6.0 (5.0-8.0) Ur Specific [place] 1.008 (1.001-1.035) Urine Protein Negative (Negative) Urine Glucose (UA) 4+ H (Negative) Urine Ketones Negative (Negative) Urine Blood Negative (Negative) Urine Nitrite Negative (Negative) Urine Bilirubin Negative (Negative) Urine Urobilinogen <2.0 (<2.0) mg/dL Ur Leukocyte Esterase Negative (Negative) Influenza Type A (PCR) Not Detected (Not Detectd) Influenza Type B (PCR) Not Detected (Not Detectd) RSV (PCR) Not Detected (Not Detectd) SARS-CoV-2 (PCR) Not Detected (Not Detectd) Disposition Clinical Impression: URI (upper respiratory infection) Disposition: HOME SELF-CARE Condition: Good Instructions (If sedation given, give patient instructions): Upper Respiratory Infection (ED) Additional Instructions: Follow-up with PCP. Report back to ER with any new or worsening symptoms. Prescriptions: Ondansetron Odt [Zofran Odt] 4 mg PO Q8HR PRN #12 tab PRN Reason: Nausea Is patient prescribed a controlled substance at d/c from ED?: No Referrals: Ramya Saul MD [Primary Care Provider] - 1-2 days Time of Disposition: 02:40
--- NOTE | 2023-05-08 03:00 | XR ---
EXAM: XR Chest, 2 Views CLINICAL HISTORY: ITS.REASON XR Reason: cough TECHNIQUE: Frontal and lateral views of the chest. COMPARISON: XR Chest dated 04/26/23 FINDINGS: Lungs: Unremarkable. No consolidation. Pleural space: Unremarkable. No pneumothorax. Heart: Unremarkable. No cardiomegaly. Mediastinum: Unremarkable. Bones/joints: Mild degenerative changes of the spine. IMPRESSION: No evidence of acute cardiopulmonary disease.
== END 2023-05-08 03:02 | disposition home or self-care (01) ==
LOC: EC 01:10
DX: J06.9 Acute upper respiratory infection, unspecified (principal); J44.89 Other specified chronic obstructive pulmonary disease; E11.9 Type 2 diabetes mellitus without complications; K21.9 Gastro-esophageal reflux disease without esophagitis; E78.5 Hyperlipidemia, unspecified; I10 Essential (primary) hypertension; G47.30 Sleep apnea, unspecified; M19.90 Unspecified osteoarthritis, unspecified site; F17.200 Nicotine dependence, unspecified, uncomplicated; Z86.59 Personal history of other mental and behavioral disorders; Z79.51 Long term (current) use of inhaled steroids; Z79.1 Long term (current) use of non-steroidal anti-inflammatories (NSAID); Z79.82 Long term (current) use of aspirin; Z79.899 Other long term (current) drug therapy; Z91.09 Other allergy status, other than to drugs and biological substances; Z88.2 Allergy status to sulfonamides; Z91.040 Latex allergy status; Z88.8 Allergy status to other drugs, medicaments and biological substances; Z20.822 Contact with and (suspected) exposure to COVID-19
CPT/HCPCS: 94640; 81003; 87636; 71046; 99283; 96372; J2930

== ENCOUNTER 2023-05-22 10:06 | Emergency (ER) | payer MEDICARE, OTHER ==
[2023-05-22 10:44] VITALS: TEMP 98.3
--- NOTE | 2023-05-22 10:49 | XR ---
EXAMINATION TYPE: XR chest 2V DATE OF EXAM: 05/22/2023 COMPARISON: 05/08/2023 HISTORY: Shortness of breath TECHNIQUE: Frontal and lateral views of the chest are obtained. FINDINGS: Scattered senescent parenchymal changes noted. Hyperinflation compatible with COPD. No evidence for infiltrate. No evidence for atelectasis. Heart size is stable. Mediastinal structures are stable and grossly unremarkable. No evidence for hilar prominence. Degenerative changes dorsal spine. IMPRESSION: 1. No evidence for acute pulmonary disease.
--- NOTE | 2023-05-22 11:47 | ED ---
URI HPI - General Source: patient, RN notes reviewed Mode of arrival: wheelchair Limitations: no limitations <Felicita Lugo - Last Filed: 05/22/23 11:45> <Kylie Christopher - Last Filed: 05/23/23 18:38> - General Chief Complaint: Upper Respiratory Infection Stated Complaint: weakness Time Seen by Provider: 05/22/23 11:46 - History of Present Illness Initial Comments: patient is a 53-year-old male presented ER with chief complaint of not feeling well. Patient states he's had a cough and woke up not feeling well today. She states he has felt feverish lately. (Felicita Lugo) 53-year-old male well known to the emergency department presents today for not feeling well. States he has had a cough, shortness of breath and nausea. Denies any sick contacts with similar symptoms. States he has been having chills but denies fevers. He has been using his inhaler without any improvement in his symptoms. He continues to smoke. He denies any vomiting. States that his appetite has been decreased. He denies any diarrhea. No chest pain. No other alleviating, precipitating or modifying factors (Kylie Christopher) - Related Data Home Medications Medication Instructions Recorded Confirmed Tamsulosin [Flomax] 0.4 mg PO HS@199904/12/20 01/10/23 Aspirin EC [Ecotrin Low Dose] 81 mg PO DAILY@0800 07/09/20 01/10/23 amLODIPine [Norvasc] 10 mg PO DAILY@0800 04/10/21 01/10/23 Atorvastatin [Lipitor] 10 mg PO HS@199901/19/22 01/10/23 Cetirizine HCl [Zyrtec] 10 mg PO DAILY@1700 01/19/22 01/10/23 lisinopriL [Zestril] 2.5 mg PO DAILY@0800 01/19/22 01/10/23 Ergocalciferol (Vitamin D2) 1,250 mcg PO FR 08/18/22 01/10/23 [Drisdol (50,000 Iu)] Acetaminophen-Codeine 300-30mg 1 tab PO Q6H PRN 12/17/22 01/10/23 [Tylenol w/codeine #3] Diphenoxylate HCl/Atropine 1 tab PO QID@08,12,17,20 12/17/22 01/10/23 [Lomotil 2.5-0.025 mg Tablet] Melatonin 5 mg PO HS@199912/17/22 01/10/23 Albuterol Inhaler [Ventolin Hfa 2 puff INHALATION RT-Q6H PRN 01/10/23 01/10/23 Inhaler] Budesonide/Formoterol Fumarate 2 puff INHALATION RT-BID 01/10/23 01/10/23 [Symbicort 80-4.5 Mcg Inhaler] Omeprazole 20 mg PO DAILY PRN 01/10/23 01/10/23 Previous Rx's Medication Instructions Recorded Metoclopramide [Reglan] 10 mg PO Q6H PRN #15 tab 12/16/22 Ondansetron Odt [Zofran ODT] 4 mg PO Q8HR PRN #15 tab 12/16/22 Meloxicam [Mobic] 7.5 mg PO DAILY@0800 PRN #0 12/18/22 metFORMIN HCL ER [Glucophage XR] 1,000 mg PO BID@799,1999 #120 tab 12/18/22 ARIPiprazole [Abilify] 10 mg PO DAILY@0800 30 Days #60 tab 01/13/23 Mirtazapine [Remeron] 30 mg PO HS@1999 30 Days #30 tab 01/13/23 Nicotine Gum (Polacrilex) 2 mg BUCCAL Q4HR PRN 15 Days #80 01/13/23 [Nicorette] pieceofgum traZODone HCL [Desyrel] 100 mg PO HS 30 Days #30 tab 01/13/23 Amoxic-Pot Clav 875-125Mg 1 tab PO Q12HR #20 tablet 02/28/23 [Augmentin 875-125] Ondansetron Odt [Zofran Odt] 4 mg PO Q8HR PRN #12 tab 05/08/23 Trimethobenzamide [Tigan] 300 mg PO TID PRN #20 capsule 05/22/23 guaiFENesin [Mucinex] 600 mg PO Q12H #24 tab 05/22/23 methylPREDNISolone Dose Pack 4 mg PO DIRECTED #21 tab 05/22/23 [Medrol Dose Pack] Allergies Allergy/AdvReac Type Severity Reaction Status Date / Time dicyclomine HCl [From Bentyl] Allergy Unknown Dyspnea Verified 05/22/23 10:31 latex Allergy Unknown Rash/Hives Verified 05/22/23 10:31 adhesive AdvReac Unknown Itching Verified 05/22/23 10:31 ciprofloxacin AdvReac Unknown Nausea Verified 05/22/23 10:31 Macrolide Antibiotics AdvReac Unknown Nausea Verified 05/22/23 10:31 sulfamethoxazole AdvReac Unknown Unknown Verified 05/22/23 10:31 [From Bactrim] trimethoprim [From Bactrim] AdvReac Unknown Unknown Verified 05/22/23 10:31 Review of Systems ROS Other: All systems not noted in ROS Statement are negative. <Felicita Lugo - Last Filed: 05/22/23 11:45> ROS Other: All systems not noted in ROS Statement are negative. <Kylie Christopher - Last Filed: 05/23/23 18:38> ROS Statement: Those systems with pertinent positive or pertinent negative responses have been documented in the HPI. Past Medical History Past Medical History: Asthma, Chest Pain / Angina, COPD, CVA/TIA, Diabetes Mellitus, GERD/Reflux, Hearing Disorder / Deafness, Hyperlipidemia, Hypertension, Liver Disease, Osteoarthritis (OA), Pneumonia, Seizure Disorder, Sleep Apnea/CPAP/BIPAP Additional Past Medical History / Comment(s): states CVA at 35 yrs old, no weakness @ this time. states seizure at 35 yrs old., DDD- back & neck pain., carpal tunnel syndrome., hx. of cyst on kidney, uses cpap., states having abdominal pain with diarrhea and nausea ., Lives in a nursing home with 2 other people. Has a caregiver.n Has [employer] public guardian. History of Any Multi-Drug Resistant Organisms: None Reported Past Surgical History: Heart Catheterization, Orthopedic Surgery Additional Past Surgical History / Comment(s): Cysts removed, left thumb surgery, colonoscopy 08/24/2019. Skin tags removed from both eyes. Past Anesthesia/Blood Transfusion Reactions: Motion Sickness, Postoperative Nausea & Vomiting (PONV) Past Psychological History: Anxiety, Bipolar, Depression, Schizophrenia Smoking Status: Current every day smoker Past Alcohol Use History: Rare Past Drug Use History: None Reported - Past Family History Brother(s) Family Medical History: Diabetes Mellitus Additional Family Medical History / Comment(s): Patient has 2 brothers. One from complications from diabetes. The second is alive with diabetes. Sister(s) Family Medical History: Cancer Additional Family Medical History / Comment(s): Patient has one sister with breast cancer. Patient does not have any children. Father Family Medical History: Cancer Additional Family Medical History / Comment(s): Father in his 40s or 50s from colon cancer. Mother Family Medical History: Cancer Additional Family Medical History / Comment(s): Mother at age 68 from lung cancer. <Felicita Lugo - Last Filed: 05/22/23 11:45> General Exam Limitations: no limitations <Felicita Lugo - Last Filed: 05/22/23 11:45> General appearance: alert, in no apparent distress Head exam: Present: atraumatic, normocephalic, normal inspection Eye exam: Present: normal appearance, PERRL, EOMI. Absent: scleral icterus, conjunctival injection, periorbital swelling ENT exam: Present: normal exam, mucous membranes moist Neck exam: Present: normal inspection. Absent: tenderness, meningismus, lymphadenopathy Respiratory exam: Present: wheezes. Absent: respiratory distress, rales, rhonchi, stridor Cardiovascular Exam: Present: regular rate, normal rhythm, normal heart sounds. Absent: systolic murmur, diastolic murmur, rubs, gallop, clicks GI/Abdominal exam: Present: soft, normal bowel sounds. Absent: distended, tenderness, guarding, rebound, rigid Extremities exam: Present: normal inspection, full ROM, normal capillary refill. Absent: tenderness, pedal edema, joint swelling, calf tenderness Back exam: Present: normal inspection Neurological exam: Present: alert, oriented X3, CN II-XII intact Psychiatric exam: Present: normal affect, normal mood Skin exam: Present: warm, dry, intact, normal color. Absent: rash <Kylie Christopher - Last Filed: 05/23/23 18:38> - General Exam Comments Initial Comments: Visual Physical Exam Vital signs reviewed General: Well-appearing, nontoxic, no acute distress. Head: Normocephalic, atraumatic Eyes: PERRLA, EOMI ENT: Airway patent Chest: Nonlabored breathing Skin: No visual rash, normal skin tone Neuro: Alert and oriented 3 Musculoskeletal: No gross abnormalities (Felicita Lugo) Course Vital Signs 05/22/23 05/22/23 05/22/23 10:29 16:48 16:56 Temperature 98.3 F Pulse Rate 69 62 65 Respiratory 20 Rate Blood Pressure 102/70 O2 Sat by Pulse 98 Oximetry 05/22/23 17:37 Temperature Pulse Rate 67 Respiratory 18 Rate Blood Pressure 117/78 O2 Sat by Pulse 96 Oximetry Medical Decision Making <Felicita Lugo - Last Filed: 05/22/23 11:45> <Kylie Christopher - Last Filed: 05/23/23 18:38> - Medical Decision Making I performed the quick note portion of the exam. Electronically signed by Felicita Lugo PA-C (Felicita Lugo) Was pt. sent in by a medical professional or institution ([facility], CHAIR FINISHER, urgent care, hospital, or fpc...) When possible be specific @ -No Did you speak to anyone other than the patient for history (EMS, parent, family, police, friend...)? What history was obtained from this source @ -No Did you review nursing and triage notes (agree or disagree)? Why? @ -I reviewed and agree with nursing and triage notes Were old charts reviewed (outside hosp., previous admission, EMS record, old EKG, old radiological studies, urgent care reports/EKG's, fpc records)? Report findings @ -No old charts were reviewed Differential Diagnosis (chest pain, altered mental status, abdominal pain women, abdominal pain men, vaginal bleeding, weakness, fever, dyspnea, syncope, headache, dizziness, GI bleed, back pain, seizure, CVA, palpatations, mental health, musculoskeletal)? @ -Differential Pneumonia, viral URI, endocarditis, myocarditis, pericarditis, otitis, sinusitis , peritonsillar Abscess, retropharyngeal Abscess, epiglottitis, peritonitis, appendicitis, Telma cystitis, diverticulitis, hepatitis, colitis, UTI, PID, TOA, pyelonephritis, prostatitis, epididymitis, meningitis, encephalitis, pulmonary embolism, CVA, thyroid storm, pancreatitis, adrenal crisis, cavernous sinus thrombosis, this is not meant to be an all-inclusive list. EKG interpreted by me (3pts min.). @ -Not done X-rays interpreted by me (1pt min.). @ -Yes and demonstrates no acute intrathoracic process CT interpreted by me (1pt min.). @ -None done U/S interpreted by me (1pt. min.). @ -None done What testing was considered but not performed or refused? (CT, X-rays, U/S, labs)? Why? @ -None What meds were considered but not given or refused? Why? @ -None Did you discuss the management of the patient with other professionals (professionals i.e. , PA, CHAIR FINISHER, lab, RT, psych nurse, clinical social work aide, master at arms, teacher, industrial relations officer, case management manager)? Give summary @ -No Was smoking cessation discussed for >3mins.? @ -No Was critical care preformed (if so, how long)? @ -No Were there social determinants of health that impacted care today? How? (Homelessness, low income, unemployed, alcoholism, drug addiction, chauhan sportation, low edu. Level, literacy, decrease access to med. care, prison, rehab)? @ -No Was there de-escalation of care discussed even if they declined (Discuss DNR or withdrawal of care, Hospice)? DNR status @ -No What co-morbidities impacted this encounter? (DM, HTN, Smoking, COPD, CAD, Cancer, CVA, ARF, Chemo, Hep., AIDS, mental health diagnosis, sleep apnea, morbid obesity)? @ -Nicotine use Was patient admitted / discharged? Hospital course, mention meds given and route, prescriptions, significant lab abnormalities, going to OR and other pertinent info. @ -Upon arrival patient was placed into room 31. Thorough history and physical exam was performed. Patient is swabbed for Covid, influenza and RSV all of which are negative. Chest x-ray demonstrates no acute process. Patient was given a breathing treatment, Mucinex and a dose of Tigan. Patient feels improved. He will be discharged home at this time. Instructed to follow-up with his doctor in 2-4 days and return for any new or worsening symptoms Undiagnosed new problem with uncertain prognosis? @ -No Drug Therapy requiring intensive monitoring for toxicity (Heparin, Nitro, Insulin, Cardizem)? @ -No Were any procedures done? @ -No Diagnosis/symptom? @ -Acute cough, acute nausea, suspected viral syndrome Acute, or Chronic, or Acute on Chronic? @ -Acute Uncomplicated (without systemic symptoms) or Complicated (systemic symptoms)? @ -Complicated Side effects of treatment? @ -No Exacerbation, Progression, or Severe Exacerbation? @ -No Poses a threat to life or bodily function? How? (Chest pain, [place], [place], pneumonia, PE, COPD, DKA, ARF, appy, cholecystitis, CVA, Diverticulitis, Homicidal, Suicidal, threat to staff... and all critical care pts) @ -No (Kylie Christopher) - Lab Data Lab Results 05/22/23 Range/Units 13:23 Influenza Type A (PCR) Not Detected (Not Detectd) Influenza Type B (PCR) Not Detected (Not Detectd) RSV (PCR) Not Detected (Not Detectd) SARS-CoV-2 (PCR) Not Detected (Not Detectd) Disposition <Felicita Lugo - Last Filed: 05/22/23 11:45> Is patient prescribed a controlled substance at d/c from ED?: No Time of Disposition: 17:24 <Kylie Christopher - Last Filed: 05/23/23 18:38> Clinical Impression: Cough, Nausea, URI (upper respiratory infection), Acute bronchitis Disposition: HOME SELF-CARE Condition: Stable Instructions (If sedation given, give patient instructions): Upper Respiratory Infection (ED) Additional Instructions: Take the medications as prescribed. Follow-up with your doctor. Return for any new or worsening symptoms Prescriptions: methylPREDNISolone Dose Pack [Medrol Dose Pack] 4 mg PO DIRECTED #21 tab guaiFENesin [Mucinex] 600 mg PO Q12H #24 tab Trimethobenzamide [Tigan] 300 mg PO TID PRN #20 capsule PRN Reason: Nausea Referrals: Ramya Saul MD [Primary Care Provider] - 1-2 days
[2023-05-22] MEDS ORDERED: guaiFENesin 600 MG TABLET.ER PO STA (16:11)
[2023-05-22] MEDS ORDERED: IPRATROPIUM-ALBUTEROL 3 ML NEB INHALATION STA (16:12)
[2023-05-22] MEDS ORDERED: TRIMETHOBENZAMIDE 100 MG/ML 2 ML VIAL IM STA (16:12)
[2023-05-22 17:54] VITALS: BP 117/78; PULSE 67; RESP 18
== END 2023-05-22 17:41 | disposition home or self-care (01) ==
LOC: EC 10:06
DX: J06.9 Acute upper respiratory infection, unspecified (principal); J20.9 Acute bronchitis, unspecified; R11.0 Nausea; J44.89 Other specified chronic obstructive pulmonary disease; E11.9 Type 2 diabetes mellitus without complications; I10 Essential (primary) hypertension; G47.30 Sleep apnea, unspecified; K21.9 Gastro-esophageal reflux disease without esophagitis; E78.5 Hyperlipidemia, unspecified; F17.200 Nicotine dependence, unspecified, uncomplicated; M19.90 Unspecified osteoarthritis, unspecified site; Z86.59 Personal history of other mental and behavioral disorders; Z86.73 Personal history of transient ischemic attack (TIA), and cerebral infarction without residual deficits; Z79.51 Long term (current) use of inhaled steroids; Z79.899 Other long term (current) drug therapy; Z79.82 Long term (current) use of aspirin; Z91.09 Other allergy status, other than to drugs and biological substances; Z91.040 Latex allergy status; Z88.1 Allergy status to other antibiotic agents; Z88.8 Allergy status to other drugs, medicaments and biological substances; Z88.2 Allergy status to sulfonamides; Z20.822 Contact with and (suspected) exposure to COVID-19; Z79.1 Long term (current) use of non-steroidal anti-inflammatories (NSAID)
CPT/HCPCS: 94640; 87636; 71046; 99285; 96372; J3250

== ENCOUNTER 2023-05-26 11:47 | Emergency (ER) | payer MEDICARE, OTHER ==
[2023-05-26 12:07] VITALS: RESP 18
--- NOTE | 2023-05-26 12:36 | XR ---
EXAMINATION TYPE: XR chest 2V DATE OF EXAM: 05/26/2023 COMPARISON: 05/22/2023. HISTORY: Cough and shortness of breath. TECHNIQUE: Frontal and lateral views of the chest are obtained. FINDINGS: There is no focal air space opacity, pleural effusion, or pneumothorax seen. The cardiac silhouette size is within normal limits. The osseous structures are intact. IMPRESSION: No acute cardiopulmonary process.
--- NOTE | 2023-05-26 12:41 | ED ---
General Adult HPI - General Chief complaint: Shortness of Breath Stated complaint: Chest Pain Time Seen by Provider: 05/26/23 11:48 Source: patient, EMS, RN notes reviewed Mode of arrival: EMS Limitations: no limitations - History of Present Illness Initial comments: 53-year-old male presents emergency from via EMS chief complaint cough congestion. Patient states she's been sick for over a week. Patient states that her see cough. He has no resting chest pain states only hurts in his ribs with his productive cough no reported fever complaints of chills and nausea vomiting. - Related Data Home Medications Medication Instructions Recorded Confirmed Tamsulosin [Flomax] 0.4 mg PO HS@199904/12/20 05/26/23 Aspirin EC [Ecotrin Low Dose] 81 mg PO DAILY@0800 07/09/20 05/26/23 amLODIPine [Norvasc] 10 mg PO DAILY@0800 04/10/21 05/26/23 lisinopriL [Zestril] 2.5 mg PO DAILY@0800 01/19/22 05/26/23 ARIPiprazole [Abilify] 15 mg PO DAILY@0800 05/26/23 05/26/23 Cholecalciferol [Vitamin D3 (25 50 mcg PO DAILY@0805/26/23 05/26/23 Mcg = 1000 Iu)] Dapagliflozin Propanediol [Farxiga] 10 mg PO DAILY@0800 05/26/23 05/26/23 Melatonin 5 mg PO HS@199905/26/23 05/26/23 Meloxicam [Mobic] 7.5 mg PO DAILY@79905/26/23 05/26/23 Omeprazole 40 mg PO BID@0805/26/23 05/26/23 Promethazine [Phenergan] 12.5 mg PO QID 05/26/23 05/26/23 Rosuvastatin Calcium 5 mg PO HS@199905/26/23 05/26/23 guaiFENesin [Mucinex] 600 mg PO Q12HR@08,199905/26/23 05/26/23 methylPREDNISolone Dose Pack See Taper PO DIRECTED 05/26/23 05/26/23 [Medrol Dose Pack] traZODone HCL [Desyrel] 100 mg PO HS@199905/26/23 05/26/23 Previous Rx's Medication Instructions Recorded metFORMIN HCL ER [Glucophage XR] 1,000 mg PO BID@0800,1999 #120 tab 12/18/22 Doxycycline [Vibramycin] 100 mg PO BID #20 capsule 05/26/23 Allergies Allergy/AdvReac Type Severity Reaction Status Date / Time dicyclomine HCl [From Bentyl] Allergy Unknown Dyspnea Verified 05/26/23 12:46 latex Allergy Unknown Rash/Hives Verified 05/26/23 12:46 Benzoate Analogues Allergy Unknown Verified 05/26/23 12:46 nitrofurantoin Allergy Unknown Verified 05/26/23 12:46 [From Macrobid] Penicillins Allergy "Reserve Verified 05/26/23 12:46 funny" adhesive AdvReac Unknown Itching Verified 05/26/23 12:46 ciprofloxacin AdvReac Unknown Nausea Verified 05/26/23 12:46 Macrolide Antibiotics AdvReac Unknown Nausea Verified 05/26/23 12:46 sulfamethoxazole AdvReac Unknown Unknown Verified 05/26/23 12:46 [From Bactrim] trimethoprim [From Bactrim] AdvReac Unknown Unknown Verified 05/26/23 12:46 Review of Systems ROS Statement: Those systems with pertinent positive or pertinent negative responses have been documented in the HPI. ROS Other: All systems not noted in ROS Statement are negative. Past Medical History Past Medical History: Asthma, Chest Pain / Angina, COPD, CVA/TIA, Diabetes Mellitus, GERD/Reflux, Hearing Disorder / Deafness, Hyperlipidemia, Hypertension, Liver Disease, Osteoarthritis (OA), Pneumonia, Seizure Disorder, Sleep Apnea/CPAP/BIPAP Additional Past Medical History / Comment(s): states CVA at 35 yrs old, no weakness @ this time. states seizure at 35 yrs old., DDD- back & neck pain., carpal tunnel syndrome., hx. of cyst on kidney, uses cpap., states having abdominal pain with diarrhea and nausea ., Lives in a custodial with 2 other people. Has a caregiver.n Has [employer] public guardian. History of Any Multi-Drug Resistant Organisms: None Reported Past Surgical History: Heart Catheterization, Orthopedic Surgery Additional Past Surgical History / Comment(s): Cysts removed, left thumb surgery, colonoscopy 08/24/2019. Skin tags removed from both eyes. Past Anesthesia/Blood Transfusion Reactions: Motion Sickness, Postoperative Nausea & Vomiting (PONV) Past Psychological History: Anxiety, Bipolar, Depression, Schizophrenia Smoking Status: Current every day smoker Past Alcohol Use History: Rare Past Drug Use History: None Reported - Past Family History Brother(s) Family Medical History: Diabetes Mellitus Additional Family Medical History / Comment(s): Patient has 2 brothers. One from complications from diabetes. The second is alive with diabetes. Sister(s) Family Medical History: Cancer Additional Family Medical History / Comment(s): Patient has one sister with breast cancer. Patient does not have any children. Father Family Medical History: Cancer Additional Family Medical History / Comment(s): Father in his 40s or 50s from colon cancer. Mother Family Medical History: Cancer Additional Family Medical History / Comment(s): Mother at age 68 from lung cancer. General Exam Limitations: no limitations General appearance: alert, in no apparent distress Head exam: Present: atraumatic, normocephalic, normal inspection Eye exam: Present: normal appearance, PERRL, EOMI. Absent: scleral icterus, conjunctival injection, periorbital swelling ENT exam: Present: normal exam, normal oropharynx, mucous membranes moist Neck exam: Present: normal inspection, full ROM. Absent: tenderness, meningismus, lymphadenopathy Respiratory exam: Present: normal lung sounds bilaterally, chest wall tenderness. Absent: respiratory distress, wheezes, rales, rhonchi, stridor Cardiovascular Exam: Present: regular rate, normal rhythm, normal heart sounds. Absent: systolic murmur, diastolic murmur, rubs, gallop, clicks GI/Abdominal exam: Present: soft, normal bowel sounds. Absent: distended, tenderness, guarding, rebound, rigid Course Vital Signs 05/26/23 11:49 Temperature 99.2 F Pulse Rate 77 Respiratory 18 Rate Blood Pressure 120/80 O2 Sat by Pulse 100 Oximetry EKG Findings - EKG Comments: EKG Findings:: EKG performed at 05/28/2005 sinus rhythm rate of 63 [place] 143 QRS 110 QT/QTC 402/409 - EKG Results: EKG: interpreted by [facility] Medical Decision Making - Medical Decision Making Was pt. sent in by a medical professional or institution (, PA, ANESTHESIA RESIDENT, urgent care, hospital, or [place] health care facility...) When possible be specific @ -No Did you speak to anyone other than the patient for history (EMS, parent, family, police, friend...)? What history was obtained from this source @ -No Did you review nursing and triage notes (agree or disagree)? Why? @ -I reviewed and agree with nursing and triage notes Were old charts reviewed (outside hosp., previous admission, EMS record, old EKG, old radiological studies, urgent care reports/EKG's, [place] health [facility] facility records)? Report findings @ -No old charts were reviewed Differential Diagnosis (chest pain, altered mental status, abdominal pain women, abdominal pain men, vaginal bleeding, weakness, fever, dyspnea, syncope, headache, dizziness, GI bleed, back pain, seizure, CVA, palpatations, mental health, musculoskeletal)? @ -COVID 19, RSV, influenza, pneumonia, acute bronchitis, URI, this list is not all inclusivee EKG interpreted by me (3pts min.). @ -As above X-rays interpreted by me (1pt min.). @ -Chest x-ray shows no evidence of lobar pneumonia CT interpreted by me (1pt min.). @ -None done U/S interpreted by me (1pt. min.). @ -None done What testing was considered but not performed or refused? (CT, X-rays, U/S, labs)? Why? @ -None What meds were considered but not given or refused? Why? @ -None Did you discuss the management of the patient with other professionals (professionals i.e. , PA, ANESTHESIA RESIDENT, lab, RT, psych nurse, rn social services, manager membership, teacher, operations officer trust department, caseworker protective services)? Give summary @ -No Was smoking cessation discussed for >3mins.? @ -No Was critical care preformed (if so, how long)? @ -No Were there social determinants of health that impacted care today? How? (Homelessness, low income, unemployed, alcoholism, drug addiction, transpor tation, low edu. Level, literacy, decrease access to med. care, long-term, rehab)? @ -No Was there de-escalation of care discussed even if they declined (Discuss DNR or withdrawal of care, Hospice)? DNR status @ -No What co-morbidities impacted this encounter? (DM, HTN, Smoking, COPD, CAD, Cancer, CVA, ARF, Chemo, Hep., AIDS, mental health diagnosis, sleep apnea, morbid obesity)? @ -None Was patient admitted / discharged? Hospital course, mention meds given and route, prescriptions, significant lab abnormalities, going to OR and other pertinent info. @ -Discharge patient has vascular is no improvement. Patient we given antibodies if symptoms persist over 10 days. Undiagnosed new problem with uncertain prognosis? @ -No Drug Therapy requiring intensive monitoring for toxicity (Heparin, Nitro, Insulin, Cardizem)? @ -No Were any procedures done? @ -No Diagnosis/symptom? @ -Tracheobronchitis Acute, or Chronic, or Acute on Chronic? @ -Acute Uncomplicated (without systemic symptoms) or Complicated (systemic symptoms)? @ -[Uncomplicated Side effects of treatment? @ -No Exacerbation, Progression, or Severe Exacerbation? @ -No Poses a threat to life or bodily function? How? (Chest pain, [place], [place], pneumonia, PE, COPD, DKA, ARF, appy, cholecystitis, CVA, Diverticulitis, Homicidal, Suicidal, threat to staff... and all critical care pts) @ -No - Lab Data Lab Results 05/26/23 Range/Units 11:57 Influenza Type A (PCR) Not Detected (Not Detectd) Influenza Type B (PCR) Not Detected (Not Detectd) RSV (PCR) Not Detected (Not Detectd) SARS-CoV-2 (PCR) Not Detected (Not Detectd) Disposition Clinical Impression: Tracheobronchitis Disposition: HOME SELF-CARE Condition: Stable Instructions (If sedation given, give patient instructions): Acute Bronchitis (ED) Additional Instructions: Please return to the Emergency Department if symptoms worsen or any other concerns. Prescriptions: Doxycycline [Vibramycin] 100 mg PO BID #20 capsule Is patient prescribed a controlled substance at d/c from ED?: No Referrals: Ramya Saul MD [Primary Care Provider] - 1-2 days Time of Disposition: 13:39
[2023-05-26 14:13] VITALS: BP 122/83; PULSE 78; TEMP 98.9
== END 2023-05-26 14:04 | disposition home or self-care (01) ==
LOC: EC 11:47
DX: J40 Bronchitis, not specified as acute or chronic (principal); I45.10 Unspecified right bundle-branch block; K21.9 Gastro-esophageal reflux disease without esophagitis; M19.90 Unspecified osteoarthritis, unspecified site; E78.5 Hyperlipidemia, unspecified; J44.89 Other specified chronic obstructive pulmonary disease; E11.9 Type 2 diabetes mellitus without complications; I10 Essential (primary) hypertension; F41.9 Anxiety disorder, unspecified; F31.9 Bipolar disorder, unspecified; F17.200 Nicotine dependence, unspecified, uncomplicated; G47.30 Sleep apnea, unspecified; Z86.73 Personal history of transient ischemic attack (TIA), and cerebral infarction without residual deficits; Z79.82 Long term (current) use of aspirin; Z79.84 Long term (current) use of oral hypoglycemic drugs; Z79.1 Long term (current) use of non-steroidal anti-inflammatories (NSAID); Z79.899 Other long term (current) drug therapy; Z88.0 Allergy status to penicillin; Z88.2 Allergy status to sulfonamides; Z91.09 Other allergy status, other than to drugs and biological substances; Z91.040 Latex allergy status; Z88.8 Allergy status to other drugs, medicaments and biological substances; Z20.822 Contact with and (suspected) exposure to COVID-19
CPT/HCPCS: 71046; 87636; 93005; 99285

== ENCOUNTER 2023-06-30 09:08 | Emergency (ER) | payer MEDICARE, OTHER ==
[2023-06-30 09:43] VITALS: RESP 18
[2023-06-30] MEDS ORDERED: SODIUM CHLORIDE 0.9% 1,000 ML IV STA (09:45)
--- NOTE | 2023-06-30 09:48 | ED ---
General Adult HPI - General Chief complaint: Recheck/Abnormal Lab/Rx Stated complaint: Hyperglycemia Time Seen by Provider: 06/30/23 09:25 Source: patient, RN notes reviewed Mode of arrival: ambulatory Limitations: no limitations - History of Present Illness Initial comments: Patient is a pleasant 53-year-old male presenting to the emergency department with concerns for high blood sugar. Patient's blood sugar has been high for the past several days. Blood sugar has been 400. Patient is taking his medications without improvement. Patient only complains of feeling fatigued. Patient denies recent illness. Patient does have polyuria and polydipsia. - Related Data Home Medications Medication Instructions Recorded Confirmed Tamsulosin [Flomax] 0.4 mg PO HS@199904/12/20 05/26/23 Aspirin EC [Ecotrin Low Dose] 81 mg PO DAILY@0800 07/09/20 05/26/23 amLODIPine [Norvasc] 10 mg PO DAILY@0800 04/10/21 05/26/23 lisinopriL [Zestril] 2.5 mg PO DAILY@0800 01/19/22 05/26/23 ARIPiprazole [Abilify] 15 mg PO DAILY@0800 05/26/23 05/26/23 Cholecalciferol [Vitamin D3 (25 50 mcg PO DAILY@0800 05/26/23 05/26/23 Mcg = 1000 Iu)] Dapagliflozin Propanediol [Farxiga] 10 mg PO DAILY@0800 05/26/23 05/26/23 Melatonin 5 mg PO HS@199905/26/23 05/26/23 Meloxicam [Mobic] 7.5 mg PO DAILY@0800 05/26/23 05/26/23 Omeprazole 40 mg PO BID@08,199905/26/23 05/26/23 Promethazine [Phenergan] 12.5 mg PO QID 05/26/23 05/26/23 Rosuvastatin Calcium 5 mg PO HS@199905/26/23 05/26/23 guaiFENesin [Mucinex] 600 mg PO Q12HR@0800,199905/26/23 05/26/23 methylPREDNISolone Dose Pack See Taper PO DIRECTED 05/26/23 05/26/23 [Medrol Dose Pack] traZODone HCL [Desyrel] 100 mg PO HS@199905/26/23 05/26/23 Previous Rx's Medication Instructions Recorded metFORMIN HCL ER [Glucophage XR] 1,000 mg PO BID@ #120 tab 12/18/22 Doxycycline [Vibramycin] 100 mg PO BID #20 capsule 05/26/23 Allergies Allergy/AdvReac Type Severity Reaction Status Date / Time dicyclomine HCl [From Bentyl] Allergy Unknown Dyspnea Verified 06/30/23 09:23 latex Allergy Unknown Rash/Hives Verified 06/30/23 09:23 Benzoate Analogues Allergy Unknown Verified 06/30/23 09:23 nitrofurantoin Allergy Unknown Verified 06/30/23 09:23 [From Macrobid] Penicillins Allergy "[place] Verified 06/30/23 09:23 funny" adhesive AdvReac Unknown Itching Verified 06/30/23 09:23 ciprofloxacin AdvReac Unknown Nausea Verified 06/30/23 09:23 Macrolide Antibiotics AdvReac Unknown Nausea Verified 06/30/23 09:23 sulfamethoxazole AdvReac Unknown Unknown Verified 06/30/23 09:23 [From Bactrim] trimethoprim [From Bactrim] AdvReac Unknown Unknown Verified 06/30/23 09:23 Review of Systems ROS Statement: Those systems with pertinent positive or pertinent negative responses have been documented in the HPI. ROS Other: All systems not noted in ROS Statement are negative. Constitutional: Denies: fever Eyes: Denies: eye pain ENT: Denies: ear pain Respiratory: Denies: cough Cardiovascular: Denies: chest pain Endocrine: Reports: polydipsia, polyuria Genitourinary: Denies: dysuria Neurological: Denies: headache (Patient denies despite nursing notes eating otherwise) Past Medical History Past Medical History: Asthma, Chest Pain / Angina, COPD, CVA/TIA, Diabetes Mellitus, GERD/Reflux, Hearing Disorder / Deafness, Hyperlipidemia, Hyp ertension, Liver Disease, Osteoarthritis (OA), Pneumonia, Seizure Disorder, Sleep Apnea/CPAP/BIPAP Additional Past Medical History / Comment(s): states CVA at 35 yrs old, no w eakness @ this time. states seizure at 35 yrs old., DDD- back & neck pain., carpal tunnel syndrome., hx. of cyst on kidney, uses cpap., states having abdominal pain with diarrhea and nausea ., Lives in a alf with 2 other people. Has a caregiver.n Has [employer] public guardian. History of Any Multi-Drug Resistant Organisms: None Reported Past Surgical History: Heart Catheterization, Orthopedic Surgery Additional Past Surgical History / Comment(s): Cysts removed, left thumb surgery, colonoscopy 08/24/2019. Skin tags removed from both eyes. Past Anesthesia/Blood Transfusion Reactions: Motion Sickness, Postoperative Nausea & Vomiting (PONV) Past Psychological History: Anxiety, Bipolar, Depression, Schizophrenia Smoking Status: Current every day smoker Past Alcohol Use History: Rare Past Drug Use History: None Reported - Past Family History Brother(s) Family Medical History: Diabetes Mellitus Additional Family Medical History / Comment(s): Patient has 2 brothers. One from complications from diabetes. The second is alive with diabetes. Sister(s) Family Medical History: Cancer Additional Family Medical History / Comment(s): Patient has one sister with breast cancer. Patient does not have any children. Father Family Medical History: Cancer Additional Family Medical History / Comment(s): Father in his 40s or 50s from colon cancer. Mother Family Medical History: Cancer Additional Family Medical History / Comment(s): Mother at age 68 from lung cancer. General Exam Limitations: no limitations General appearance: alert, in no apparent distress Eye exam: Present: normal appearance, PERRL ENT exam: Present: normal oropharynx Neck exam: Present: normal inspection. Absent: tenderness, meningismus Respiratory exam: Present: normal lung sounds bilaterally Cardiovascular Exam: Present: regular rate, normal rhythm GI/Abdominal exam: Present: soft. Absent: tenderness Extremities exam: Present: normal inspection Neurological exam: Present: alert, oriented X3, CN II-XII intact. Absent: motor sensory deficit Psychiatric exam: Present: normal affect, normal mood Skin exam: Present: normal color Course Vital Signs 06/30/23 06/30/23 09:20 12:14 Temperature 97.9 F 98.0 F Pulse Rate 82 65 Respiratory 18 18 Rate Blood Pressure 126/88 115/71 O2 Sat by Pulse 97 99 Oximetry EKG Findings - EKG Results: EKG: interpreted by ERMD (Left axis), sinus rhythm, normal QRS, normal ST/T Medical Decision Making - Medical Decision Making Was pt. sent in by a medical professional or institution (, PA, LEASING ASSOCIATE, urgent care, hospital, or [place] health care facility...) When possible be specific @ -No Did you speak to anyone other than the patient for history (EMS, parent, family, police, friend...)? What history was obtained from this source @ -No Did you review nursing and triage notes (agree or disagree)? Why? @ -I reviewed and agree with nursing and triage notes Were old charts reviewed (outside hosp., previous admission, EMS record, old EKG, old radiological studies, urgent care reports/EKG's, [place] health care facility records)? Report findings @ -Previous labs reviewed and x-ray. Differential Diagnosis (chest pain, altered mental status, abdominal pain women, abdominal pain men, vaginal bleeding, weakness, fever, dyspnea, syncope, headache, dizziness, GI bleed, back pain, seizure, CVA, palpatations, mental health, musculoskeletal)? @ -Differential Weakness: Hypoglycemia, shock, sepsis, hyponatremia, anemia, infection, AK, ETOH, adverse medicine reaction, overdose, stroke, this is not meant to be an all-inclusive list. EKG interpreted by me (3pts min.). @ -As above X-rays interpreted by me (1pt min.). @ -Chest x-ray shows no acute process CT interpreted by me (1pt min.). @ -None done U/S interpreted by me (1pt. min.). @ -None done What testing was considered but not performed or refused? (CT, X-rays, U/S, labs)? Why? @ -None What meds were considered but not given or refused? Why? @ -Considered IV insulin however patient's blood sugar is only 158. Did you discuss the management of the patient with other professionals (professionals i.e. , PA, LEASING ASSOCIATE, lab, RT, psych nurse, social service technician, operations logistics analyst, teacher, safety patrol officer, case assembler)? Give summary @ -No Was smoking cessation discussed for >3mins.? @ -No Was critical care preformed (if so, how long)? @ -No Were there social determinants of health that impacted care today? How? (Homelessness, low income, unemployed, alcoholism, drug addiction, transportation, low edu. Level, literacy, decrease access to med. care, alf, rehab)? @ -No Was there de-escalation of care discussed even if they declined (Discuss DNR or withdrawal of care, Hospice)? DNR status @ -No What co-morbidities impacted this encounter? (DM, HTN, Smoking, COPD, CAD, Can cer, CVA, ARF, Chemo, Hep., AIDS, mental health diagnosis, sleep apnea, morbid obesity)? @ -None Was patient admitted / discharged? Hospital course, mention meds given and route, prescriptions, significant lab abnormalities, going to OR and other pertinent info. @ -Patient reevaluated and updated. Patient will be discharged following IV fl uids. Undiagnosed new problem with uncertain prognosis? @ -No Drug Therapy requiring intensive monitoring for toxicity (Heparin, Nitro, Insulin, Cardizem)? @ -No Were any procedures done? @ -No Diagnosis/symptom? @ -Hyperglycemia Acute, or Chronic, or Acute on Chronic? @ -Acute Uncomplicated (without systemic symptoms) or Complicated (systemic symptoms)? @ -default Side effects of treatment? @ -No Exacerbation, Progression, or Severe Exacerbation? @ -No Poses a threat to life or bodily function? How? (Chest pain, USA, [place], pneumonia, PE, COPD, DKA, ARF, appy, cholecystitis, CVA, Diverticulitis, Homicidal, Suicidal, threat to staff... and all critical care pts) @ -No - Lab Data Result diagrams: 06/30/23 10:42 06/30/23 10:42 Lab Results 06/30/23 06/30/23 06/30/23 Range/Units 10:29 10:42 10:42 WBC 7.0 (3.8-10.6) k/uL RBC 5.35 (4.30-5.90) m/uL Hgb 16.9 (13.0-17.5) gm/dL Hct 48.0 (39.0-53.0) % MCV 89.6 (80.0-100.0) fL MCH 31.6 (25.0-35.0) pg MCHC 35.3 (31.0-37.0) g/dL RDW 13.2 (11.5-15.5) % Plt Count 167 (150-450) k/uL MPV 7.4 Neutrophils % 67 % Lymphocytes % 22 % Monocytes % 5 % Eosinophils % 3 % Basophils % 0 % Neutrophils # 4.7 (1.3-7.7) k/uL Lymphocytes # 1.5 (1.0-4.8) k/uL Monocytes # 0.4 (0-1.0) k/uL Eosinophils # 0.2 (0-0.7) k/uL Basophils # 0.0 (0-0.2) k/uL Sodium 138 (137-145) mmol/L Potassium 4.3 (3.5-5.1) mmol/L Chloride 105 (98-107) mmol/L Carbon Dioxide 22 (22-30) mmol/L Anion Gap 11 mmol/L BUN 18 (9-20) mg/dL Creatinine 0.63 L (0.66-1.25) mg/dL Est GFR (CKD-EPI)AfAm >90 (>60 ml/min/1.73 sqM) Est GFR (CKD-EPI)NonAf >90 (>60 ml/min/1.73 sqM) Glucose 158 H (74-99) mg/dL POC Glucose (mg/dL) 156 H (70-110) mg/dL POC Glu Business Process Manager ID Maureen Warrengan Calcium 9.5 (8.4-10.2) mg/dL Total Bilirubin 0.5 (0.2-1.3) mg/dL AST 30 (17-59) U/L ALT 44 (4-49) U/L Alkaline Phosphatase 82 (38-126) U/L Total Protein 6.7 (6.3-8.2) g/dL Albumin 4.4 (3.5-5.0) g/dL Urine Color Urine Appearance (Clear) Urine pH (5.0-8.0) Ur Specific [place] (1.001-1.035) Urine Protein (Negative) Urine Glucose (UA) (Negative) Urine Ketones (Negative) Urine Blood (Negative) Urine Nitrite (Negative) Urine Bilirubin (Negative) Urine Urobilinogen (<2.0) mg/dL Ur Leukocyte Esterase (Negative) Acetone, Qual Negative (Negative) 06/30/23 Range/Units 10:42 WBC (3.8-10.6) k/uL RBC (4.30-5.90) m/uL Hgb (13.0-17.5) gm/dL Hct (39.0-53.0) % MCV (80.0-100.0) fL MCH (25.0-35.0) pg MCHC (31.0-37.0) g/dL RDW (11.5-15.5) % Plt Count (150-450) k/uL MPV Neutrophils % % Lymphocytes % % Monocytes % % Eosinophils % % Basophils % % Neutrophils # (1.3-7.7) k/uL Lymphocytes # (1.0-4.8) k/uL Monocytes # (0-1.0) k/uL Eosinophils # (0-0.7) k/uL Basophils # (0-0.2) k/uL Sodium (137-145) mmol/L Potassium (3.5-5.1) mmol/L Chloride (98-107) mmol/L Carbon Dioxide (22-30) mmol/L Anion Gap mmol/L BUN (9-20) mg/dL Creatinine (0.66-1.25) mg/dL Est GFR (CKD-EPI)AfAm (>60 ml/min/1.73 sqM) Est GFR (CKD-EPI)NonAf (>60 ml/min/1.73 sqM) Glucose (74-99) mg/dL POC Glucose (mg/dL) (70-110) mg/dL POC Glu Business Process Manager ID Calcium (8.4-10.2) mg/dL Total Bilirubin (0.2-1.3) mg/dL AST (17-59) U/L ALT (4-49) U/L Alkaline Phosphatase (38-126) U/L Total Protein (6.3-8.2) g/dL Albumin (3.5-5.0) g/dL Urine Color Colorless Urine Appearance Clear (Clear) Urine pH 7.5 (5.0-8.0) Ur Specific [place] 1.028 (1.001-1.035) Urine Protein Negative (Negative) Urine Glucose (UA) 4+ H (Negative) Urine Ketones Negative (Negative) Urine Blood Negative (Negative) Urine Nitrite Negative (Negative) Urine Bilirubin Negative (Negative) Urine Urobilinogen <2.0 (<2.0) mg/dL Ur Leukocyte Esterase Negative (Negative) Acetone, Qual (Negative) Disposition Clinical Impression: Hyperglycemia Disposition: HOME SELF-CARE Condition: Stable Instructions (If sedation given, give patient instructions): Diabetic Hyperglycemia (ED) Additional Instructions: Please do follow-up with her primary care physician in the next couple of days for recheck. Return for uncontrolled blood sugar, weakness, fever and worsening or changing symptoms or other concerns. Is patient prescribed a controlled substance at d/c from ED?: No Referrals: Ramya Saul MD [Primary Care Provider] - 1-2 days Time of Disposition: 12:29
[2023-06-30 10:32] LABS: Glucose,Whole Blood 156 mg/dL (70-110)
[2023-06-30 10:55] LABS: Basophils % (A) 0 %; Eosinophils # (A) 0.2 k/uL (0-0.7); Eosinophils % (A) 3 %; HGB 16.9 gm/dL (13.0-17.5); Lymphocytes # (A) 1.5 k/uL (1.0-4.8); Lymphocytes % (A) 22 %; MCH 31.6 pg (25.0-35.0); MCHC 35.3 g/dL (31.0-37.0); MCV 89.6 fL (80.0-100.0); Mean Platelet Volume 7.4; Monocytes # (A) 0.4 k/uL (0-1.0); Monocytes % (A) 5 %; Neutrophils # (A) 4.7 k/uL (1.3-7.7); Neutrophils % (A) 67 %; Platelet Count 167 k/uL (150-450); RBC 5.35 m/uL (4.30-5.90); RDW 13.2 % (11.5-15.5)
[2023-06-30 11:10] LABS: Appearance,Urine Clear (Clear); Bilirubin,Urine Negative (Negative); Blood,Urine Negative (Negative); Color,Urine Colorless; Glucose,Urine (UA) 4+ (Negative); Ketones,Urine Negative (Negative); Leukocyte Esterase,Urine Negative (Negative); Nitrite,Urine Negative (Negative); PH, Urine 7.5 (5.0-8.0); Protein,Urine Negative (Negative); Specific Gravity,Urine 1.028 (1.001-1.035); Urobilinogen,Urine <2.0 mg/dL (<2.0)
[2023-06-30 11:18] LABS: ALT 44 U/L (4-49); AST 30 U/L (17-59); African American GFR (CKD) >90 (>60 ml/min/1.73 sqM); Albumin 4.4 g/dL (3.5-5.0); Alkaline Phosphatase 82 U/L (38-126); Anion Gap 11 mmol/L; Blood Urea Nitrogen 18 mg/dL (9-20); Calcium 9.5 mg/dL (8.4-10.2); Carbon Dioxide 22 mmol/L (22-30); Chloride 105 mmol/L (98-107); Glucose 158 mg/dL (74-99); Non-African American GFR(CKD) >90 (>60 ml/min/1.73 sqM); Potassium 4.3 mmol/L (3.5-5.1); Sodium 138 mmol/L (137-145); Total Bilirubin 0.5 mg/dL (0.2-1.3); Total Protein 6.7 g/dL (6.3-8.2)
--- NOTE | 2023-06-30 11:57 | XR ---
EXAMINATION TYPE: XR chest 2V DATE OF EXAM: 06/30/2023 COMPARISON: 05/26/2023 INDICATION: Weakness hyperglycemia TECHNIQUE: Frontal and lateral views of the chest are obtained. FINDINGS: The heart size is normal. The pulmonary vasculature is normal. The lungs are clear. IMPRESSION: 1. No acute pulmonary process.
[2023-06-30 12:30] VITALS: TEMP 98
[2023-06-30 13:42] VITALS: BP 110/82; PULSE 62
== END 2023-06-30 13:21 | disposition home or self-care (01) ==
LOC: EC 09:08
DX: E11.65 Type 2 diabetes mellitus with hyperglycemia (principal); I45.10 Unspecified right bundle-branch block; J44.89 Other specified chronic obstructive pulmonary disease; K21.9 Gastro-esophageal reflux disease without esophagitis; E78.5 Hyperlipidemia, unspecified; I10 Essential (primary) hypertension; G47.30 Sleep apnea, unspecified; F41.9 Anxiety disorder, unspecified; F31.9 Bipolar disorder, unspecified; F17.200 Nicotine dependence, unspecified, uncomplicated; Z79.82 Long term (current) use of aspirin; Z79.899 Other long term (current) drug therapy; Z79.84 Long term (current) use of oral hypoglycemic drugs; Z91.040 Latex allergy status; Z88.0 Allergy status to penicillin; Z88.8 Allergy status to other drugs, medicaments and biological substances; Z91.09 Other allergy status, other than to drugs and biological substances; Z88.1 Allergy status to other antibiotic agents; Z88.2 Allergy status to sulfonamides
CPT/HCPCS: 36415; 71046; 80053; 81003; 82009; 85025; 93005; 96360; 99284

== ENCOUNTER 2023-07-09 17:47 | Emergency (ER) | payer MEDICARE, OTHER ==
[2023-07-09 18:49] VITALS: BP 108/62; PULSE 88; TEMP 97
[2023-07-09] MEDS ORDERED: LORazepam 1 MG TAB PO STA (19:54)
--- NOTE | 2023-07-09 19:57 | ED ---
General Adult HPI - General Chief complaint: Anxiety Stated complaint: Anxiety Time Seen by Provider: 07/09/23 19:43 Source: patient, RN notes reviewed Mode of arrival: ambulatory Limitations: no limitations - History of Present Illness Initial comments: Patient is a pleasant 53-year-old male presenting to the emergency department with anxiety. Patient states he has been under increased stress last couple of days. Patient does have a friend that he has been trying to help however they're giving him a hard time. Patient feels stressed and more anxious. Patient does have history of similar problems previously. - Related Data Home Medications Medication Instructions Recorded Confirmed Tamsulosin [Flomax] 0.4 mg PO HS@199904/12/20 05/26/23 Aspirin EC [Ecotrin Low Dose] 81 mg PO DAILY@0800 07/09/20 05/26/23 amLODIPine [Norvasc] 10 mg PO DAILY@0800 04/10/21 05/26/23 lisinopriL [Zestril] 2.5 mg PO DAILY@0800 01/19/22 05/26/23 ARIPiprazole [Abilify] 15 mg PO DAILY@0805/26/23 05/26/23 Cholecalciferol [Vitamin D3 (25 50 mcg PO DAILY@0805/26/23 05/26/23 Mcg = 1000 Iu)] Dapagliflozin Propanediol [Farxiga] 10 mg PO DAILY@0800 05/26/23 05/26/23 Melatonin 5 mg PO HS@199905/26/23 05/26/23 Meloxicam [Mobic] 7.5 mg PO DAILY@79905/26/23 05/26/23 Omeprazole 40 mg PO BID@0805/26/23 05/26/23 Promethazine [Phenergan] 12.5 mg PO QID 05/26/23 05/26/23 Rosuvastatin Calcium 5 mg PO HS@199905/26/23 05/26/23 guaiFENesin [Mucinex] 600 mg PO Q12HR@08,199905/26/23 05/26/23 methylPREDNISolone Dose Pack See Taper PO DIRECTED 05/26/23 05/26/23 [Medrol Dose Pack] traZODone HCL [Desyrel] 100 mg PO HS@199905/26/23 05/26/23 Previous Rx's Medication Instructions Recorded metFORMIN HCL ER [Glucophage XR] 1,000 mg PO BID@0800,1999 #120 tab 12/18/22 Doxycycline [Vibramycin] 100 mg PO BID #20 capsule 05/26/23 Allergies Allergy/AdvReac Type Severity Reaction Status Date / Time dicyclomine HCl [From Bentyl] Allergy Unknown Dyspnea Verified 07/09/23 18:36 latex Allergy Unknown Rash/Hives Verified 07/09/23 18:36 Benzoate Analogues Allergy Unknown Verified 07/09/23 18:36 nitrofurantoin Allergy Unknown Verified 07/09/23 18:36 [From Macrobid] Penicillins Allergy "[place] Verified 07/09/23 18:36 funny" adhesive AdvReac Unknown Itching Verified 07/09/23 18:36 ciprofloxacin AdvReac Unknown Nausea Verified 07/09/23 18:36 Macrolide Antibiotics AdvReac Unknown Nausea Verified 07/09/23 18:36 sulfamethoxazole AdvReac Unknown Unknown Verified 07/09/23 18:36 [From Bactrim] trimethoprim [From Bactrim] AdvReac Unknown Unknown Verified 07/09/23 18:36 Review of Systems ROS Statement: Those systems with pertinent positive or pertinent negative responses have been documented in the HPI. ROS Other: All systems not noted in ROS Statement are negative. Respiratory: Denies: dyspnea Cardiovascular: Denies: chest pain Psychiatric: Reports: anxiety. Denies: homicidal thoughts, suicidal thoughts Past Medical History Past Medical History: Asthma, Chest Pain / Angina, COPD, CVA/TIA, Diabetes Mellitus, GERD/Reflux, Hearing Disorder / Deafness, Hyperlipidemia, Hypertension, Liver Disease, Osteoarthritis (OA), Pneumonia, Seizure Disorder, Sleep Apnea/CPAP/BIPAP Additional Past Medical History / Comment(s): states CVA at 35 yrs old, no weakness @ this time. states seizure at 35 yrs old., DDD- back & neck pain., carpal tunnel syndrome., hx. of cyst on kidney, uses cpap., states having abdominal pain with diarrhea and nausea ., Lives in a correction with 2 other people. Has a caregiver.n Has [employer] public guardian. History of Any Multi-Drug Resistant Organisms: None Reported Past Surgical History: Heart Catheterization, Orthopedic Surgery Additional Past Surgical History / Comment(s): Cysts removed, left thumb surgery, colonoscopy 08/24/2019. Skin tags removed from both eyes. Past Anesthesia/Blood Transfusion Reactions: Motion Sickness, Postoperative Nausea & Vomiting (PONV) Past Psychological History: Anxiety, Bipolar, Depression, Schizophrenia Smoking Status: Current every day smoker Past Alcohol Use History: Rare Past Drug Use History: None Reported - Past Family History Brother(s) Family Medical History: Diabetes Mellitus Additional Family Medical History / Comment(s): Patient has 2 brothers. One from complications from diabetes. The second is alive with diabetes. Sister(s) Family Medical History: Cancer Additional Family Medical History / Comment(s): Patient has one sister with breast cancer. Patient does not have any children. Father Family Medical History: Cancer Additional Family Medical History / Comment(s): Father in his 40s or 50s from colon cancer. Mother Family Medical History: Cancer Additional Family Medical History / Comment(s): Mother at age 68 from lung cancer. General Exam Limitations: no limitations General appearance: alert, in no apparent distress Head exam: Present: normocephalic Eye exam: Present: normal appearance Neck exam: Present: normal inspection Respiratory exam: Present: normal lung sounds bilaterally. Absent: respiratory distress Cardiovascular Exam: Present: regular rate, normal rhythm GI/Abdominal exam: Present: soft. Absent: tenderness Back exam: Present: normal inspection Neurological exam: Present: alert Psychiatric exam: Present: normal affect, normal mood Skin exam: Present: normal color Course Vital Signs 07/09/23 18:32 Temperature 97.0 F L Pulse Rate 88 Respiratory 68 H Rate Blood Pressure 108/62 O2 Sat by Pulse 96 Oximetry Medical Decision Making - Medical Decision Making Was pt. sent in by a medical professional or institution (, PA, SENIOR DATABASE ADMINISTRATOR, urgent care, hospital, or senior care...) When possible be specific @ -No Did you speak to anyone other than the patient for history (EMS, parent, family, police, friend...)? What history was obtained from this source @ -No Did you review nursing and triage notes (agree or disagree)? Why? @ -I reviewed and agree with nursing and triage notes Were old charts reviewed (outside hosp., previous admission, EMS record, old EKG, old radiological studies, urgent care reports/EKG's, senior care records)? Report findings @ -Previous charts reviewed and confirm history of mental health problems Differential Diagnosis (chest pain, altered mental status, abdominal pain women, abdominal pain men, vaginal bleeding, weakness, fever, dyspnea, syncope, headache, dizziness, GI bleed, back pain, seizure, CVA, palpatations, mental health, musculoskeletal)? @ -Differential Mental Health Depression, anxiety, bipolar, psychosis, schizophrenia, borderline personality, situational depression, adjustment disorder, behavioral disorder, brain tumor, malingering, substance abuse, encephalopathy, medication reaction, dementia, hy pothyroidism, degenerative neurologic disorder, lupus.... This is not meant to be all-inclusive list EKG interpreted by me (3pts min.). @ -As above X-rays interpreted by me (1pt min.). @ -None done CT interpreted by me (1pt min.). @ -None done U/S interpreted by me (1pt. min.). @ -None done What testing was considered but not performed or refused? (CT, X-rays, U/S, labs)? Why? @ -None What meds were considered but not given or refused? Why? @ -None Did you discuss the management of the patient with other professionals (professionals i.e. , PA, SENIOR DATABASE ADMINISTRATOR, lab, RT, psych nurse, social science teacher, decal decorator, teacher, aviation ordnance officer, outsole caser)? Give summary @ -No Was smoking cessation discussed for >3mins.? @ -No Was critical care preformed (if so, how long)? @ -No Were there social determinants of health that impacted care today? How? (Ho melessness, low income, unemployed, alcoholism, drug addiction, transportation, low edu. Level, literacy, decrease access to med. care, [facility], rehab)? @ -No Was there de-escalation of care discussed even if they declined (Discuss DNR or withdrawal of care, Hospice)? DNR status @ -No What co-morbidities impacted this encounter? (DM, HTN, Smoking, COPD, CAD, Cancer, CVA, ARF, Chemo, Hep., AIDS, mental health diagnosis, sleep apnea, morbid obesity)? @ -None Was patient admitted / discharged? Hospital course, mention meds given and route, prescriptions, significant lab abnormalities, going to OR and other pertinent info. @ -Patient presents with stress and anxiety. Patient will be provided Ativan for this and recommended follow-up. Patient is also advised he can notify police officers if he feels he is being harassed. Undiagnosed new problem with uncertain prognosis? @ -No Drug Therapy requiring intensive monitoring for toxicity (Heparin, Nitro, Insulin, Cardizem)? @ -No Were any procedures done? @ -No Diagnosis/symptom? @ -Anxiety Acute, or Chronic, or Acute on Chronic? @ -Acute Uncomplicated (without systemic symptoms) or Complicated (systemic symptoms)? @ -default Side effects of treatment? @ -No Exacerbation, Progression, or Severe Exacerbation? @ -No Poses a threat to life or bodily function? How? (Chest pain, [place], [place], pneumonia, PE, COPD, DKA, ARF, appy, cholecystitis, CVA, Diverticulitis, Homicidal, Suicidal, threat to staff... and all critical care pts) @ -No Disposition Clinical Impression: Acute anxiety Disposition: HOME SELF-CARE Condition: Stable Instructions (If sedation given, give patient instructions): Generalized Anxiety Disorder (ED) Additional Instructions: Please do follow-up with your primary care physician in the next one to 2 days for recheck. Return for worsening symptoms, thoughts of self-harm, thoughts of harming others, or other concerns. Is patient prescribed a controlled substance at d/c from ED?: No Referrals: Ramya Saul MD [Primary Care Provider] - 1-2 days Time of Disposition: 19:57
[2023-07-09 20:15] VITALS: RESP 22
== END 2023-07-09 21:20 | disposition home or self-care (01) ==
LOC: EC 17:47
DX: F41.9 Anxiety disorder, unspecified (principal); J44.89 Other specified chronic obstructive pulmonary disease; E11.9 Type 2 diabetes mellitus without complications; K21.9 Gastro-esophageal reflux disease without esophagitis; I10 Essential (primary) hypertension; M19.90 Unspecified osteoarthritis, unspecified site; E78.5 Hyperlipidemia, unspecified; G47.30 Sleep apnea, unspecified; F31.9 Bipolar disorder, unspecified; F17.200 Nicotine dependence, unspecified, uncomplicated; Z79.1 Long term (current) use of non-steroidal anti-inflammatories (NSAID); Z79.84 Long term (current) use of oral hypoglycemic drugs; Z88.1 Allergy status to other antibiotic agents; Z88.0 Allergy status to penicillin; Z88.2 Allergy status to sulfonamides; Z91.040 Latex allergy status
CPT/HCPCS: 99283

== ENCOUNTER 2023-07-10 13:47 | Emergency (ER) | payer MEDICARE, OTHER ==
[2023-07-10 14:19] VITALS: RESP 18
--- NOTE | 2023-07-10 15:27 | ED ---
General Adult HPI - General Chief complaint: Recheck/Abnormal Lab/Rx Stated complaint: anxiety Time Seen by Provider: 07/10/23 15:01 Source: patient, RN notes reviewed Mode of arrival: ambulatory Limitations: no limitations - History of Present Illness Initial comments: Patient is a 53-year-old male presenting to the emergency department with concerns for anxiety. Patient has chronic anxiety. Patient is having more anxiety because his landlord is threatening to kick him out. Patient states that his landlord told him they were going to throw all of his belongings out. Patient has increased anxiety. Patient questions if he might be suicidal. - Related Data Home Medications Medication Instructions Recorded Confirmed Tamsulosin [Flomax] 0.4 mg PO HS@199904/12/20 05/26/23 Aspirin EC [Ecotrin Low Dose] 81 mg PO DAILY@0800 07/09/20 05/26/23 amLODIPine [Norvasc] 10 mg PO DAILY@0800 04/10/21 05/26/23 lisinopriL [Zestril] 2.5 mg PO DAILY@0800 01/19/22 05/26/23 ARIPiprazole [Abilify] 15 mg PO DAILY@0800 05/26/23 05/26/23 Cholecalciferol [Vitamin D3 (25 50 mcg PO DAILY@0800 05/26/23 05/26/23 Mcg = 1000 Iu)] Dapagliflozin Propanediol [Farxiga] 10 mg PO DAILY@0800 05/26/23 05/26/23 Melatonin 5 mg PO HS@199905/26/23 05/26/23 Meloxicam [Mobic] 7.5 mg PO DAILY@0800 05/26/23 05/26/23 Omeprazole 40 mg PO BID@08,199905/26/23 05/26/23 Promethazine [Phenergan] 12.5 mg PO QID 05/26/23 05/26/23 Rosuvastatin Calcium 5 mg PO HS@199905/26/23 05/26/23 guaiFENesin [Mucinex] 600 mg PO Q12HR@0800,199905/26/23 05/26/23 methylPREDNISolone Dose Pack See Taper PO DIRECTED 05/26/23 05/26/23 [Medrol Dose Pack] traZODone HCL [Desyrel] 100 mg PO HS@199905/26/23 05/26/23 Previous Rx's Medication Instructions Recorded metFORMIN HCL ER [Glucophage XR] 1,000 mg PO BID@08,1999 #120 tab 12/18/22 Doxycycline [Vibramycin] 100 mg PO BID #20 capsule 05/26/23 Allergies Allergy/AdvReac Type Severity Reaction Status Date / Time dicyclomine HCl [From Bentyl] Allergy Unknown Dyspnea Verified 07/10/23 14:01 latex Allergy Unknown Rash/Hives Verified 07/10/23 14:01 Benzoate Analogues Allergy Unknown Verified 07/10/23 14:01 nitrofurantoin Allergy Unknown Verified 07/10/23 14:01 [From Macrobid] Penicillins Allergy "[place] Verified 07/10/23 14:01 funny" adhesive AdvReac Unknown Itching Verified 07/10/23 14:01 ciprofloxacin AdvReac Unknown Nausea Verified 07/10/23 14:01 Macrolide Antibiotics AdvReac Unknown Nausea Verified 07/10/23 14:01 sulfamethoxazole AdvReac Unknown Unknown Verified 07/10/23 14:01 [From Bactrim] trimethoprim [From Bactrim] AdvReac Unknown Unknown Verified 07/10/23 14:01 Review of Systems ROS Statement: Those systems with pertinent positive or pertinent negative responses have been documented in the HPI. ROS Other: All systems not noted in ROS Statement are negative. Constitutional: Denies: fever Eyes: Denies: eye pain ENT: Denies: ear pain Respiratory: Denies: cough Cardiovascular: Denies: chest pain Psychiatric: Reports: as per HPI, anxiety Past Medical History Past Medical History: Asthma, Chest Pain / Angina, COPD, CVA/TIA, Diabetes Mellitus, GERD/Reflux, Hearing Disorder / Deafness, Hyperlipidemia, Hypertension, Liver Disease, Osteoarthritis (OA), Pneumonia, Seizure Disorder, Sleep Apnea/CPAP/BIPAP Additional Past Medical History / Comment(s): states CVA at 35 yrs old, no weakness @ this time. states seizure at 35 yrs old., DDD- back & neck pain., carpal tunnel syndrome., hx. of cyst on kidney, uses cpap., states having abdominal pain with diarrhea and nausea ., Lives in a jail with 2 other people. Has a caregiver.n Has [employer] public guardian. History of Any Multi-Drug Resistant Organisms: None Reported Past Surgical History: Heart Catheterization, Orthopedic Surgery Additional Past Surgical History / Comment(s): Cysts removed, left thumb surgery, colonoscopy 08/24/2019. Skin tags removed from both eyes. Past Anesthesia/Blood Transfusion Reactions: Motion Sickness, Postoperative Nausea & Vomiting (PONV) Past Psychological History: Anxiety, Bipolar, Depression, Schizophrenia Smoking Status: Current every day smoker Past Alcohol Use History: Rare Past Drug Use History: None Reported - Past Family History Brother(s) Family Medical History: Diabetes Mellitus Additional Family Medical History / Comment(s): Patient has 2 brothers. One from complications from diabetes. The second is alive with diabetes. Sister(s) Family Medical History: Cancer Additional Family Medical History / Comment(s): Patient has one sister with breast cancer. Patient does not have any children. Father Family Medical History: Cancer Additional Family Medical History / Comment(s): Father in his 40s or 50s from colon cancer. Mother Family Medical History: Cancer Additional Family Medical History / Comment(s): Mother at age 68 from lung cancer. General Exam Limitations: no limitations General appearance: alert, in no apparent distress Head exam: Present: normocephalic Eye exam: Present: normal appearance Respiratory exam: Present: normal lung sounds bilaterally Cardiovascular Exam: Present: regular rate, normal rhythm GI/Abdominal exam: Present: soft. Absent: tenderness Extremities exam: Present: normal inspection Neurological exam: Present: alert Psychiatric exam: Present: normal affect, normal mood Skin exam: Present: normal color Course Vital Signs 07/10/23 13:57 Temperature 98 F Pulse Rate 98 Respiratory 18 Rate Blood Pressure 143/91 O2 Sat by Pulse 98 Oximetry Medical Decision Making - Medical Decision Making Was pt. sent in by a medical professional or institution (, PA, MAILING SECTION CLERK, urgent care, hospital, or shelter...) When possible be specific @ -No Did you speak to anyone other than the patient for history (EMS, parent, family, police, friend...)? What history was obtained from this source @ -No Did you review nursing and triage notes (agree or disagree)? Why? @ -I reviewed and agree with nursing and triage notes Were old charts reviewed (outside hosp., previous admission, EMS record, old EKG, old radiological studies, urgent care reports/EKG's, shelter records)? Report findings @ -No old charts were reviewed Differential Diagnosis (chest pain, altered mental status, abdominal pain women, abdominal pain men, vaginal bleeding, weakness, fever, dyspnea, syncope, headache, dizziness, GI bleed, back pain, seizure, CVA, palpatations, mental health, musculoskeletal)? @ -Differential Mental Health Depression, anxiety, bipolar, psychosis, schizophrenia, borderline personality, situational depression, adjustment disorder, behavioral disorder, brain tumor, malingering, substance abuse, encephalopathy, medication reaction, dementia, hypothyroidism, degenerative neurologic disorder, lupus.... This is not meant to be all-inclusive list EKG interpreted by me (3pts min.). @ -As above X-rays interpreted by me (1pt min.). @ -None done CT interpreted by me (1pt min.). @ -None done U/S interpreted by me (1pt. min.). @ -None done What testing was considered but not performed or refused? (CT, X-rays, U/S, labs)? Why? @ -None What meds were considered but not given or refused? Why? @ -None Did you discuss the management of the patient with other professionals (professionals i.e. , PA, MAILING SECTION CLERK, lab, RT, psych nurse, medical social consultant, security incident response engineer, teacher, coastal/harbor defense officer, returned case inspector)? Give summary @ -Case was discussed with mental health worker who did make safety plan and recommends discharge Was smoking cessation discussed for >3mins.? @ -No Was critical care preformed (if so, how long)? @ -No Were there social determinants of health that impacted care today? How? (Homelessness, low income, unemployed, alcoholism, drug addiction, transportation, low edu. Level, literacy, decrease access to med. care, [facility] [facility], rehab)? @ -No Was there de-escalation of care discussed even if they declined (Discuss DNR or withdrawal of care, Hospice)? DNR status @ -No What co-morbidities impacted this encounter? (DM, HTN, Smoking, COPD, CAD, Cancer, CVA, ARF, Chemo, Hep., AIDS, mental health diagnosis, sleep apnea, mor bid obesity)? @ -None Was patient admitted / discharged? Hospital course, mention meds given and route, prescriptions, significant lab abnormalities, going to OR and other pertinent info. @ -Patient presents with anxiety. Patient has safety plan and will be discharged for follow-up with the health Undiagnosed new problem with uncertain prognosis? @ -No Drug Therapy requiring intensive monitoring for toxicity (Heparin, Nitro, Insulin, Cardizem)? @ -No Were any procedures done? @ -No Diagnosis/symptom? @ -Anxiety Acute, or Chronic, or Acute on Chronic? @ -Acute Uncomplicated (without systemic symptoms) or Complicated (systemic symptoms)? @ -default Side effects of treatment? @ -No Exacerbation, Progression, or Severe Exacerbation? @ -No Poses a threat to life or bodily function? How? (Chest pain, USA, MS, pneumonia, PE, COPD, DKA, ARF, appy, cholecystitis, CVA, Diverticulitis, Homicidal, Suicidal, threat to staff... and all critical care pts) @ -No Disposition Clinical Impression: Acute anxiety Disposition: HOME SELF-CARE Condition: Stable Instructions (If sedation given, give patient instructions): Anxiety (ED) Additional Instructions: please follow-up with mental health as directed. Please do follow-up with primary care physician in the next day or 2 for recheck. Return for thoughts of self-harm, worsening symptoms or other concerns. Is patient prescribed a controlled substance at d/c from ED?: No Referrals: Ramya Saul MD [Primary Care Provider] - 1-2 days Time of Disposition: 18:40
[2023-07-10 18:59] VITALS: BP 124/75; PULSE 80; TEMP 98.7
== END 2023-07-10 18:54 | disposition home or self-care (01) ==
LOC: EC 13:47
DX: F41.9 Anxiety disorder, unspecified (principal); E11.9 Type 2 diabetes mellitus without complications; J44.89 Other specified chronic obstructive pulmonary disease; E78.5 Hyperlipidemia, unspecified; G40.909 Epilepsy, unspecified, not intractable, without status epilepticus; I10 Essential (primary) hypertension; K21.9 Gastro-esophageal reflux disease without esophagitis; M19.90 Unspecified osteoarthritis, unspecified site; F31.9 Bipolar disorder, unspecified; F17.200 Nicotine dependence, unspecified, uncomplicated; Z79.84 Long term (current) use of oral hypoglycemic drugs; Z79.82 Long term (current) use of aspirin; Z79.899 Other long term (current) drug therapy; Z88.1 Allergy status to other antibiotic agents; Z88.0 Allergy status to penicillin; Z88.2 Allergy status to sulfonamides; Z88.5 Allergy status to narcotic agent; Z88.8 Allergy status to other drugs, medicaments and biological substances; Z91.040 Latex allergy status; Z91.09 Other allergy status, other than to drugs and biological substances; Z86.73 Personal history of transient ischemic attack (TIA), and cerebral infarction without residual deficits
CPT/HCPCS: 82075; 99283

== ENCOUNTER 2023-07-11 10:58 | Emergency (ER) | payer MEDICARE, OTHER ==
[2023-07-11 11:11] VITALS: BP 132/85; PULSE 97; RESP 18; TEMP 98
[2023-07-11] MEDS ORDERED: LORazepam 1 MG TAB PO STA (11:16)
--- NOTE | 2023-07-11 11:18 | ED ---
General Adult HPI - General Chief complaint: Recheck/Abnormal Lab/Rx Stated complaint: stress Time Seen by Provider: 07/11/23 11:12 Source: patient, RN notes reviewed, old records reviewed Mode of arrival: ambulatory Limitations: no limitations - History of Present Illness Initial comments: 53-year-old male presenting for evaluation of panic attack and anxiety. Patient states he stressed out by his roommates. He states that they are threatening to have him arrested. He denies any suicidal or homicidal ideation. No physical complaints. He just states that he stressed and requests and Ativan. He states he has good follow-up as an outpatient with his primary care provider. - Related Data Home Medications Medication Instructions Recorded Confirmed Tamsulosin [Flomax] 0.4 mg PO HS@199904/12/20 05/26/23 Aspirin EC [Ecotrin Low Dose] 81 mg PO DAILY@0800 07/09/20 05/26/23 amLODIPine [Norvasc] 10 mg PO DAILY@0800 04/10/21 05/26/23 lisinopriL [Zestril] 2.5 mg PO DAILY@0800 01/19/22 05/26/23 ARIPiprazole [Abilify] 15 mg PO DAILY@0800 05/26/23 05/26/23 Cholecalciferol [Vitamin D3 (25 50 mcg PO DAILY@0805/26/23 05/26/23 Mcg = 1000 Iu)] Dapagliflozin Propanediol [Farxiga] 10 mg PO DAILY@0800 05/26/23 05/26/23 Melatonin 5 mg PO HS@199905/26/23 05/26/23 Meloxicam [Mobic] 7.5 mg PO DAILY@0800 05/26/23 05/26/23 Omeprazole 40 mg PO BID@08,199905/26/23 05/26/23 Promethazine [Phenergan] 12.5 mg PO QID 05/26/23 05/26/23 Rosuvastatin Calcium 5 mg PO HS@199905/26/23 05/26/23 guaiFENesin [Mucinex] 600 mg PO Q12HR@0800,199905/26/23 05/26/23 methylPREDNISolone Dose Pack See Taper PO DIRECTED 05/26/23 05/26/23 [Medrol Dose Pack] traZODone HCL [Desyrel] 100 mg PO HS@199905/26/23 05/26/23 Previous Rx's Medication Instructions Recorded metFORMIN HCL ER [Glucophage XR] 1,000 mg PO BID@799,1999 #120 tab 12/18/22 Doxycycline [Vibramycin] 100 mg PO BID #20 capsule 05/26/23 Allergies Allergy/AdvReac Type Severity Reaction Status Date / Time dicyclomine HCl [From Bentyl] Allergy Unknown Dyspnea Verified 07/11/23 11:09 latex Allergy Unknown Rash/Hives Verified 07/11/23 11:09 Benzoate Analogues Allergy Unknown Verified 07/11/23 11:09 nitrofurantoin Allergy Unknown Verified 07/11/23 11:09 [From Macrobid] Penicillins Allergy "[place] Verified 07/11/23 11:09 funny" adhesive AdvReac Unknown Itching Verified 07/11/23 11:09 ciprofloxacin AdvReac Unknown Nausea Verified 07/11/23 11:09 Macrolide Antibiotics AdvReac Unknown Nausea Verified 07/11/23 11:09 sulfamethoxazole AdvReac Unknown Unknown Verified 07/11/23 11:09 [From Bactrim] trimethoprim [From Bactrim] AdvReac Unknown Unknown Verified 07/11/23 11:09 Review of Systems ROS Statement: Those systems with pertinent positive or pertinent negative responses have been documented in the HPI. ROS Other: All systems not noted in ROS Statement are negative. Past Medical History Past Medical History: Asthma, Chest Pain / Angina, COPD, CVA/TIA, Diabetes Mellitus, GERD/Reflux, Hearing Disorder / Deafness, Hyperlipidemia, Hypertension, Liver Disease, Osteoarthritis (OA), Pneumonia, Seizure Disorder, Sleep Apnea/CPAP/BIPAP Additional Past Medical History / Comment(s): states CVA at 35 yrs old, no weakness @ this time. states seizure at 35 yrs old., DDD- back & neck pain., carpal tunnel syndrome., hx. of cyst on kidney, uses cpap., states having abdominal pain with diarrhea and nausea ., Lives in a intermediate with 2 other people. Has a caregiver.n Has [employer] public guardian. History of Any Multi-Drug Resistant Organisms: None Reported Past Surgical History: Heart Catheterization, Orthopedic Surgery Additional Past Surgical History / Comment(s): Cysts removed, left thumb surgery, colonoscopy 08/24/2019. Skin tags removed from both eyes. Past Anesthesia/Blood Transfusion Reactions: Motion Sickness, Postoperative Nausea & Vomiting (PONV) Past Psychological History: Anxiety, Bipolar, Depression, Schizophrenia Smoking Status: Current every day smoker Past Alcohol Use History: Rare Past Drug Use History: None Reported - Past Family History Brother(s) Family Medical History: Diabetes Mellitus Additional Family Medical History / Comment(s): Patient has 2 brothers. One from complications from diabetes. The second is alive with diabetes. Sister(s) Family Medical History: Cancer Additional Family Medical History / Comment(s): Patient has one sister with breast cancer. Patient does not have any children. Father Family Medical History: Cancer Additional Family Medical History / Comment(s): Father in his 40s or 50s from colon cancer. Mother Family Medical History: Cancer Additional Family Medical History / Comment(s): Mother at age 68 from lung cancer. General Exam Limitations: no limitations General appearance: alert, in no apparent distress Head exam: Present: atraumatic, normocephalic Eye exam: Present: normal appearance, PERRL ENT exam: Present: normal exam Neck exam: Present: normal inspection. Absent: tenderness, meningismus Respiratory exam: Present: normal lung sounds bilaterally. Absent: respiratory distress, wheezes Cardiovascular Exam: Present: regular rate, normal rhythm GI/Abdominal exam: Present: soft. Absent: distended, tenderness Extremities exam: Present: normal inspection Neurological exam: Present: alert, oriented X3 Psychiatric exam: Present: anxious. Absent: homicidal ideation, suicidal ideation Skin exam: Present: warm, dry, intact Course Vital Signs 07/11/23 11:07 Temperature 98 F Pulse Rate 97 Respiratory 18 Rate Blood Pressure 132/85 O2 Sat by Pulse 98 Oximetry Medical Decision Making - Medical Decision Making Was pt. sent in by a medical professional or institution (, PA, [employer], urgent care, hospital, or penitentiary...) When possible be specific @ -No Did you speak to anyone other than the patient for history (EMS, parent, family, police, friend...)? What history was obtained from this source @ -No Did you review nursing and triage notes (agree or disagree)? Why? @ -I reviewed and agree with nursing and triage notes Were old charts reviewed (outside hosp., previous admission, EMS record, old EKG, old radiological studies, urgent care reports/EKG's, penitentiary records)? Report findings @ -No old charts were reviewed Differential Diagnosis (chest pain, altered mental status, abdominal pain women, abdominal pain men, vaginal bleeding, weakness, fever, dyspnea, syncope, headache, dizziness, GI bleed, back pain, seizure, CVA, palpatations, mental health, musculoskeletal)? @ -Differential Mental Health Depression, anxiety, bipolar, psychosis, schizophrenia, borderline personality, situational depression, adjustment disorder, behavioral disorder, brain tumor, malingering, substance abuse, encephalopathy, medication reaction, dementia, hypothyroidism, degenerative neurologic disorder, lupus.... This is not meant to be all-inclusive list EKG interpreted by me (3pts min.). @ -As above X-rays interpreted by me (1pt min.). @ -None done CT interpreted by me (1pt min.). @ -None done U/S interpreted by me (1pt. min.). @ -None done What testing was considered but not performed or refused? (CT, X-rays, U/S, labs)? Why? @ -None What meds were considered but not given or refused? Why? @ -None Did you discuss the management of the patient with other professionals (professionals i.e. , PA, [employer], lab, RT, psych nurse, case management social worker, routing equipment tender, teacher, armor officer, disability case manager)? Give summary @ -No Was smoking cessation discussed for >3mins.? @ -No Was critical care preformed (if so, how long)? @ -No Were there social determinants of health that impacted care today? How? (Homelessness, low income, unemployed, alcoholism, drug addiction, transportation, low edu. Level, literacy, decrease access to med. care, half-way, rehab)? @ -No Was there de-escalation of care discussed even if they declined (Discuss DNR or withdrawal of care, Hospice)? DNR status @ -No What co-morbidities impacted this encounter? (DM, HTN, Smoking, COPD, CAD, Cancer, CVA, ARF, Chemo, Hep., AIDS, mental health diagnosis, sleep apnea, morbid obesity)? @Anxiety Was patient admitted / discharged? Hospital course, mention meds given and route, prescriptions, significant lab abnormalities, going to OR and other pertinent info. @ -[Patient with acute on chronic anxiety, panic attack. No physical complaints. No suicidal or homicidal ideation. patient stable for discharge. Undiagnosed new problem with uncertain prognosis? @ -No Drug Therapy requiring intensive monitoring for toxicity (Heparin, Nitro, Insulin, Cardizem)? @ -No] Were any procedures done? @ -[No] Diagnosis/symptom? @ -[Anxiety Acute, or Chronic, or Acute on Chronic? @ chronic Uncomplicated (without systemic symptoms) or Complicated (systemic symptoms)? @ -[default] Side effects of treatment? @ -[No] Exacerbation, Progression, or Severe Exacerbation? @ -[No] Poses a threat to life or bodily function? How? (Chest pain, [place], [place], pneumonia, PE, COPD, DKA, ARF, appy, cholecystitis, CVA, Diverticulitis, Homicidal, Suicidal, threat to staff... and all critical care pts) @ -[No] Disposition Clinical Impression: Acute anxiety Disposition: HOME SELF-CARE Condition: Fair Instructions (If sedation given, give patient instructions): Anxiety (ED) Is patient prescribed a controlled substance at d/c from ED?: No Referrals: Ramya Saul MD [Primary Care Provider] - 1-2 days Time of Disposition: 11:18
== END 2023-07-11 11:32 | disposition home or self-care (01) ==
LOC: EC 10:58
DX: F41.9 Anxiety disorder, unspecified (principal); E11.9 Type 2 diabetes mellitus without complications; I10 Essential (primary) hypertension; E78.5 Hyperlipidemia, unspecified; F31.9 Bipolar disorder, unspecified; J44.89 Other specified chronic obstructive pulmonary disease; F20.9 Schizophrenia, unspecified; K21.9 Gastro-esophageal reflux disease without esophagitis; M19.90 Unspecified osteoarthritis, unspecified site; F17.200 Nicotine dependence, unspecified, uncomplicated; Z79.82 Long term (current) use of aspirin; Z79.899 Other long term (current) drug therapy; Z88.0 Allergy status to penicillin; Z88.1 Allergy status to other antibiotic agents; Z88.2 Allergy status to sulfonamides; Z88.8 Allergy status to other drugs, medicaments and biological substances; Z91.040 Latex allergy status; Z91.09 Other allergy status, other than to drugs and biological substances; Z86.73 Personal history of transient ischemic attack (TIA), and cerebral infarction without residual deficits
CPT/HCPCS: 99282

== ENCOUNTER 2023-08-12 08:41 | Emergency (ER) | payer MEDICARE, OTHER ==
[2023-08-12 08:51] VITALS: BP 145/87; PULSE 78; RESP 18; TEMP 98
[2023-08-12 08:57] LABS: Glucose,Whole Blood 136 mg/dL (70-110)
--- NOTE | 2023-08-12 09:23 | ED ---
General Adult HPI - General Chief complaint: Recheck/Abnormal Lab/Rx Stated complaint: DIZZINESS Time Seen by Provider: 08/12/23 08:42 Source: patient, RN notes reviewed Mode of arrival: ambulatory Limitations: no limitations - History of Present Illness Initial comments: 53-year-old male presents emergency department with multiple complaints. Patient is currently living in an adult care facility patient states has had some days Remus. Patient has been seen here several times for similar complaints. He does not want to live there he states because of this that he may be suicidal. Patient denies any self-harm. He is a known diabetic states he has not eaten anything this morning and is concerned about his blood sugar. He denies any drug use and alcohol abuse. - Related Data Home Medications Medication Instructions Recorded Confirmed Tamsulosin [Flomax] 0.4 mg PO HS@199904/12/20 05/26/23 Aspirin EC [Ecotrin Low Dose] 81 mg PO DAILY@0800 07/09/20 05/26/23 amLODIPine [Norvasc] 10 mg PO DAILY@0800 04/10/21 05/26/23 lisinopriL [Zestril] 2.5 mg PO DAILY@0800 01/19/22 05/26/23 ARIPiprazole [Abilify] 15 mg PO DAILY@0800 05/26/23 05/26/23 Cholecalciferol [Vitamin D3 (25 50 mcg PO DAILY@0800 05/26/23 05/26/23 Mcg = 1000 Iu)] Dapagliflozin Propanediol [Farxiga] 10 mg PO DAILY@0800 05/26/23 05/26/23 Melatonin 5 mg PO HS@199905/26/23 05/26/23 Meloxicam [Mobic] 7.5 mg PO DAILY@0800 05/26/23 05/26/23 Omeprazole 40 mg PO BID@08,199905/26/23 05/26/23 Promethazine [Phenergan] 12.5 mg PO QID 05/26/23 05/26/23 Rosuvastatin Calcium 5 mg PO HS@199905/26/23 05/26/23 guaiFENesin [Mucinex] 600 mg PO Q12HR@08,199905/26/23 05/26/23 methylPREDNISolone Dose Pack See Taper PO DIRECTED 05/26/23 05/26/23 [Medrol Dose Pack] traZODone HCL [Desyrel] 100 mg PO HS@199905/26/23 05/26/23 Previous Rx's Medication Instructions Recorded metFORMIN HCL ER [Glucophage XR] 1,000 mg PO BID@08,1999 #120 tab 12/18/22 Doxycycline [Vibramycin] 100 mg PO BID #20 capsule 05/26/23 Allergies Allergy/AdvReac Type Severity Reaction Status Date / Time dicyclomine HCl [From Bentyl] Allergy Unknown Dyspnea Verified 08/12/23 08:47 latex Allergy Unknown Rash/Hives Verified 08/12/23 08:47 Benzoate Analogues Allergy Unknown Verified 08/12/23 08:47 nitrofurantoin Allergy Unknown Verified 08/12/23 08:47 [From Macrobid] Penicillins Allergy "[place] Verified 08/12/23 08:47 funny" adhesive AdvReac Unknown Itching Verified 08/12/23 08:47 ciprofloxacin AdvReac Unknown Nausea Verified 08/12/23 08:47 Macrolide Antibiotics AdvReac Unknown Nausea Verified 08/12/23 08:47 sulfamethoxazole AdvReac Unknown Unknown Verified 08/12/23 08:47 [From Bactrim] trimethoprim [From Bactrim] AdvReac Unknown Unknown Verified 08/12/23 08:47 Review of Systems ROS Statement: Those systems with pertinent positive or pertinent negative responses have been documented in the HPI. ROS Other: All systems not noted in ROS Statement are negative. Past Medical History Past Medical History: Asthma, Chest Pain / Angina, COPD, CVA/TIA, Diabetes Mellitus, GERD/Reflux, Hearing Disorder / Deafness, Hyperlipidemia, Hypertension, Liver Disease, Osteoarthritis (OA), Pneumonia, Seizure Disorder, Sleep Apnea/CPAP/BIPAP Additional Past Medical History / Comment(s): states CVA at 35 yrs old, no weakness @ this time. states seizure at 35 yrs old., DDD- back & neck pain., carpal tunnel syndrome., hx. of cyst on kidney, uses cpap., states having abdominal pain with diarrhea and nausea ., Lives in a longterm with 2 other people. Has a caregiver.n Has [employer] public guardian. History of Any Multi-Drug Resistant Organisms: None Reported Past Surgical History: Heart Catheterization, Orthopedic Surgery Additional Past Surgical History / Comment(s): Cysts removed, left thumb surgery, colonoscopy 08/24/2019. Skin tags removed from both eyes. Past Anesthesia/Blood Transfusion Reactions: Motion Sickness, Postoperative Nausea & Vomiting (PONV) Past Psychological History: Anxiety, Bipolar, Depression, Schizophrenia Smoking Status: Current every day smoker Past Alcohol Use History: Rare Past Drug Use History: None Reported - Past Family History Brother(s) Family Medical History: Diabetes Mellitus Additional Family Medical History / Comment(s): Patient has 2 brothers. One from complications from diabetes. The second is alive with diabetes. Sister(s) Family Medical History: Cancer Additional Family Medical History / Comment(s): Patient has one sister with breast cancer. Patient does not have any children. Father Family Medical History: Cancer Additional Family Medical History / Comment(s): Father in his 40s or 50s from colon cancer. Mother Family Medical History: Cancer Additional Family Medical History / Comment(s): Mother at age 68 from lung cancer. General Exam Limitations: no limitations General appearance: alert, in no apparent distress Head exam: Present: atraumatic, normocephalic, normal inspection Neck exam: Present: normal inspection. Absent: tenderness, meningismus, lymphadenopathy Respiratory exam: Present: normal lung sounds bilaterally. Absent: respiratory distress, wheezes, rales, rhonchi, stridor Cardiovascular Exam: Present: regular rate, normal rhythm, normal heart sounds. Absent: systolic murmur, diastolic murmur, rubs, gallop, clicks GI/Abdominal exam: Present: soft, normal bowel sounds. Absent: distended, tenderness, guarding, rebound, rigid Neurological exam: Present: alert, oriented X3 Psychiatric exam: Present: flat affect Course Vital Signs 08/12/23 08:43 Temperature 98 F Pulse Rate 78 Respiratory 18 Rate Blood Pressure 145/87 O2 Sat by Pulse 98 Oximetry Medical Decision Making - Medical Decision Making Was pt. sent in by a medical professional or institution (, PA, LEVERS LACE MACHINE OPERATOR, urgent care, hospital, or jail...) When possible be specific @ -No Did you speak to anyone other than the patient for history (EMS, parent, family, police, friend...)? What history was obtained from this source @ -No Did you review nursing and triage notes (agree or disagree)? Why? @ -I reviewed and agree with nursing and triage notes Were old charts reviewed (outside hosp., previous admission, EMS record, old EKG, old radiological studies, urgent care reports/EKG's, jail records)? Report findings @ -[Reviewed prior charts, laboratory studies Differential Diagnosis (chest pain, altered mental status, abdominal pain women, abdominal pain men, vaginal bleeding, weakness, fever, dyspnea, syncope, headache, dizziness, GI bleed, back pain, seizure, CVA, palpatations, mental health, musculoskeletal)? @ -Differential Mental Health Depression, anxiety, bipolar, psychosis, schizophrenia, borderline personality, situational depression, adjustment disorder, behavioral disorder, brain tumor, malingering, substance abuse, encephalopathy, medication reaction, dementia, hypothyroidism, degenerative neurologic disorder, lupus.... This is not meant to be all-inclusive list EKG interpreted by me (3pts min.). @ -None X-rays interpreted by me (1pt min.). @ -[None done CT interpreted by me (1pt min.). @ -None done U/S interpreted by me (1pt. min.). @ -None done What testing was considered but not performed or refused? (CT, X-rays, U/S, labs)? Why? @ -None What meds were considered but not given or refused? Why? @ -None Did you discuss the management of the patient with other professionals (professionals i.e. , PA, LEVERS LACE MACHINE OPERATOR, lab, RT, psych nurse, social worker aide, nursing unit clerk, teacher, community service officer coordinator, complex case manager)? Give summary @ -[EPS evaluated patient recommended patient be discharged back to care facility patient does not meet inpatient criteria for psychiatric treatment Was smoking cessation discussed for >3mins.? @ -No Was critical care preformed (if so, how long)? @ -No Were there social determinants of health that impacted care today? How? (Homelessness, low income, unemployed, alcoholism, drug addiction, transportation, low edu. Level, literacy, decrease access to med. care, custodial, rehab)? @ -No Was there de-escalation of care discussed even if they declined (Discuss DNR or withdrawal of care, Hospice)? DNR status @ -No What co-morbidities impacted this encounter? (DM, HTN, Smoking, COPD, CAD, Cancer, CVA, ARF, Chemo, Hep., AIDS, mental health diagnosis, sleep apnea, morbid obesity)? @ -None Was patient admitted / discharged? Hospital course, mention meds given and route, prescriptions, significant lab abnormalities, going to OR and other pertinent info. @ -[Discharge patient evaluate PS for his ongoing depression patient feels comfortable discharge back to facility as he states that he is calm at this time. Patient discharged in stable condition. Undiagnosed new problem with uncertain prognosis? @ -No Drug Therapy requiring intensive monitoring for toxicity (Heparin, Nitro, Insulin, Cardizem)? @ -No Were any procedures done? @ -No Diagnosis/symptom? @ -[Depression Acute, or Chronic, or Acute on Chronic? @ -Acute Uncomplicated (without systemic symptoms) or Complicated (systemic symptoms)? @ -Uncomplicated Side effects of treatment? @ -[No Exacerbation, Progression, or Severe Exacerbation? @ -No Poses a threat to life or bodily function? How? (Chest pain, [place], [place], pneumonia, PE, COPD, DKA, ARF, appy, cholecystitis, CVA, Diverticulitis, Homicidal, Suicidal, threat to staff... and all critical care pts) @ -No - Lab Data Lab Results 08/12/23 08/12/23 Range/Units 08:55 08:55 POC Glucose (mg/dL) 136 H (70-110) mg/dL POC Glu Stain Maker ID Aziza Schwab Urine Opiates Screen Not Detected (NotDetected) Ur Oxycodone Screen Not Detected (NotDetected) Urine Methadone Screen Not Detected (NotDetected) Ur Barbiturates Screen Not Detected (NotDetected) U Tricyclic Antidepress Not Detected (NotDetected) Ur Phencyclidine Scrn Not Detected (NotDetected) Ur Amphetamines Screen Not Detected (NotDetected) U Methamphetamines Scrn Not Detected (NotDetected) U Benzodiazepines Scrn Not Detected (NotDetected) Urine Cocaine Screen Not Detected (NotDetected) U Marijuana (THC) Screen Not Detected (NotDetected) Disposition Clinical Impression: Depression Disposition: HOME SELF-CARE Condition: Stable Instructions (If sedation given, give patient instructions): Depression (ED) Additional Instructions: Please return to the Emergency Department if symptoms worsen or any other concerns. Is patient prescribed a controlled substance at d/c from ED?: No Referrals: Ramya Saul MD [Primary Care Provider] - 1-2 days Time of Disposition: 11:14
[2023-08-12 09:35] LABS: Amphetamine Screen,Urine Not Detected (NotDetected); Barbiturate Screen,Urine Not Detected (NotDetected); Benzodiazepines Screen,Urine Not Detected (NotDetected); Cocaine Screen,Urine Not Detected (NotDetected); Methadone Screen, Urine Not Detected (NotDetected); Opiate Screen,Urine Not Detected (NotDetected); Oxycodone Screen, Urine Not Detected (NotDetected); Phencyclidine Screen,Urine Not Detected (NotDetected); Tricyclic Antidepressant,Urine Not Detected (NotDetected); Urn Cannabinoid Scrn Not Detected (NotDetected)
== END 2023-08-12 11:40 | disposition home or self-care (01) ==
LOC: EC 08:41
DX: F32.A Depression, unspecified (principal); J44.89 Other specified chronic obstructive pulmonary disease; E11.9 Type 2 diabetes mellitus without complications; I10 Essential (primary) hypertension; G47.30 Sleep apnea, unspecified; M19.90 Unspecified osteoarthritis, unspecified site; K21.9 Gastro-esophageal reflux disease without esophagitis; E78.5 Hyperlipidemia, unspecified; F17.200 Nicotine dependence, unspecified, uncomplicated; Z79.82 Long term (current) use of aspirin; Z79.1 Long term (current) use of non-steroidal anti-inflammatories (NSAID); Z79.84 Long term (current) use of oral hypoglycemic drugs; Z79.899 Other long term (current) drug therapy; Z91.040 Latex allergy status; Z91.09 Other allergy status, other than to drugs and biological substances; Z88.2 Allergy status to sulfonamides; Z88.1 Allergy status to other antibiotic agents; Z88.0 Allergy status to penicillin; Z88.8 Allergy status to other drugs, medicaments and biological substances
CPT/HCPCS: 36415; 80306; 82075; 99284

== ENCOUNTER 2023-08-20 16:50 | Observation (INO) | payer MEDICARE, OTHER ==
[2023-08-20 19:48] LABS: Basophils % (A) 0 %; Eosinophils # (A) 0.4 k/uL (0-0.7); Eosinophils % (A) 5 %; HCT 49.3 % (39.0-53.0); HGB 17.6 gm/dL (13.0-17.5); Lymphocytes # (A) 1.8 k/uL (1.0-4.8); Lymphocytes % (A) 21 %; MCH 31.9 pg (25.0-35.0); MCHC 35.6 g/dL (31.0-37.0); MCV 89.5 fL (80.0-100.0); Mean Platelet Volume 7.9; Monocytes # (A) 0.5 k/uL (0-1.0); Monocytes % (A) 5 %; Neutrophils # (A) 5.7 k/uL (1.3-7.7); Neutrophils % (A) 67 %; Platelet Count 220 k/uL (150-450); RBC 5.51 m/uL (4.30-5.90); RDW 12.7 % (11.5-15.5); WBC 8.5 k/uL (3.8-10.6)
[2023-08-20 19:59] LABS: Partial Thromboplastin Time 24.6 sec (22.0-30.0); Prothrombin Time 10.6 sec (10.0-12.5)
[2023-08-20 19:59] LABS: Appearance,Urine Clear (Clear); Bilirubin,Urine Negative (Negative); Blood,Urine Negative (Negative); Color,Urine Colorless; Glucose,Urine (UA) Negative (Negative); Ketones,Urine Negative (Negative); Leukocyte Esterase,Urine Negative (Negative); Nitrite,Urine Negative (Negative); PH, Urine 6.5 (5.0-8.0); Protein,Urine Negative (Negative); Specific Gravity,Urine 1.005 (1.001-1.035); Urobilinogen,Urine <2.0 mg/dL (<2.0)
[2023-08-20 20:03] LABS: Amphetamine Screen,Urine Not Detected (NotDetected); Benzodiazepines Screen,Urine Not Detected (NotDetected); Cocaine Screen,Urine Not Detected (NotDetected); Opiate Screen,Urine Not Detected (NotDetected); Phencyclidine Screen,Urine Not Detected (NotDetected); Tricyclic Antidepressant,Urine Not Detected (NotDetected); Urn Cannabinoid Scrn Not Detected (NotDetected)
[2023-08-20 20:04] LABS: Barbiturate Screen,Urine Not Detected (NotDetected); Methadone Screen, Urine Not Detected (NotDetected); Oxycodone Screen, Urine Not Detected (NotDetected)
--- NOTE | 2023-08-20 20:09 | XR ---
EXAMINATION TYPE: XR chest 2V DATE OF EXAM: 08/20/2023 7:52 PM CLINICAL INDICATION:Male, 53 years old with history of Chest Pain; [facility] COMPARISON: Chest radiographs from 06/30/2023. TECHNIQUE: XR chest 2V Frontal and lateral views of the chest. FINDINGS: Lungs/Pleura: There is no evidence of pleural effusion, focal consolidation, or pneumothorax. Pulmonary vascularity: Unremarkable. Heart/mediastinum: Cardiomediastinal silhouette is unremarkable. Musculoskeletal: No acute osseous pathology. Other findings: None IMPRESSION: No acute cardiopulmonary disease/process.
[2023-08-20 20:10] LABS: ALT 56 U/L (4-49); AST 33 U/L (17-59); African American GFR (CKD) >90 (>60 ml/min/1.73 sqM); Alkaline Phosphatase 75 U/L (38-126); Anion Gap 8 mmol/L; Blood Urea Nitrogen 17 mg/dL (9-20); Calcium 10.1 mg/dL (8.4-10.2); Carbon Dioxide 27 mmol/L (22-30); Chloride 105 mmol/L (98-107); Glucose 157 mg/dL (74-99); Magnesium 1.7 mg/dL (1.6-2.3); Non-African American GFR(CKD) >90 (>60 ml/min/1.73 sqM); Potassium 3.9 mmol/L (3.5-5.1); Sodium 140 mmol/L (137-145); Total Bilirubin 0.7 mg/dL (0.2-1.3); Total Protein 7.4 g/dL (6.3-8.2)
[2023-08-20] MEDS: ACETAMINOPHEN TAB 500 MG TAB PO STA (20:52)
--- NOTE | 2023-08-20 21:23 | ED ---
Chest Pain HPI - General Chief Complaint: Chest Pain Stated Complaint: Mental Health Time Seen by Provider: 08/20/23 19:50 Source: patient Mode of arrival: ambulatory Limitations: no limitations - History of Present Illness Initial Comments: 53-year-old male with a past medical history significant for hypercholesterolemia and is a current every day smoker presenting to the ED with a chief complaint of chest pain. Patient states for the last 2 weeks has had pain of the right side of his chest and right shoulder. Patient also states that he is "sick of it" and states that he stopped taking his medications for the last 2 weeks and endorses depression. Patient denies suicidal ideation to me however apparently did mention suicidal ideation to nurse prior to me. Denies homicidal ideation. No shortness of breath. No new complaints at this time. - Related Data Home Medications Medication Instructions Recorded Confirmed Tamsulosin [Flomax] 0.4 mg PO HS@199904/12/20 05/26/23 Aspirin EC [Ecotrin Low Dose] 81 mg PO DAILY@0800 07/09/20 05/26/23 amLODIPine [Norvasc] 10 mg PO DAILY@0800 04/10/21 05/26/23 lisinopriL [Zestril] 2.5 mg PO DAILY@0800 01/19/22 05/26/23 ARIPiprazole [Abilify] 15 mg PO DAILY@0805/26/23 05/26/23 Cholecalciferol [Vitamin D3 (25 50 mcg PO DAILY@0800 05/26/23 05/26/23 Mcg = 1000 Iu)] Dapagliflozin Propanediol [Farxiga] 10 mg PO DAILY@0805/26/23 05/26/23 Melatonin 5 mg PO HS@199905/26/23 05/26/23 Meloxicam [Mobic] 7.5 mg PO DAILY@0800 05/26/23 05/26/23 Omeprazole 40 mg PO BID@05/26/23 05/26/23 Promethazine [Phenergan] 12.5 mg PO QID 05/26/23 05/26/23 Rosuvastatin Calcium 5 mg PO HS@199905/26/23 05/26/23 guaiFENesin [Mucinex] 600 mg PO Q12HR@05/26/23 05/26/23 methylPREDNISolone Dose Pack See Taper PO DIRECTED 05/26/23 05/26/23 [Medrol Dose Pack] traZODone HCL [Desyrel] 100 mg PO HS@199905/26/23 05/26/23 Previous Rx's Medication Instructions Recorded metFORMIN HCL ER [Glucophage XR] 1,000 mg PO BID@08,1999 #120 tab 12/18/22 Doxycycline [Vibramycin] 100 mg PO BID #20 capsule 05/26/23 Allergies Allergy/AdvReac Type Severity Reaction Status Date / Time dicyclomine HCl [From Bentyl] Allergy Unknown Dyspnea Verified 08/12/23 08:47 latex Allergy Unknown Rash/Hives Verified 08/12/23 08:47 Benzoate Analogues Allergy Unknown Verified 08/12/23 08:47 nitrofurantoin Allergy Unknown Verified 08/12/23 08:47 [From Macrobid] Penicillins Allergy "[place] Verified 08/12/23 08:47 funny" adhesive AdvReac Unknown Itching Verified 08/12/23 08:47 ciprofloxacin AdvReac Unknown Nausea Verified 08/12/23 08:47 Macrolide Antibiotics AdvReac Unknown Nausea Verified 08/12/23 08:47 sulfamethoxazole AdvReac Unknown Unknown Verified 08/12/23 08:47 [From Bactrim] trimethoprim [From Bactrim] AdvReac Unknown Unknown Verified 08/12/23 08:47 Review of Systems ROS Statement: Those systems with pertinent positive or pertinent negative responses have been documented in the HPI. ROS Other: All systems not noted in ROS Statement are negative. Past Medical History Past Medical History: Asthma, Chest Pain / Angina, COPD, CVA/TIA, Diabetes Mellitus, GERD/Reflux, Hearing Disorder / Deafness, Hyperlipidemia, Hypertension, Liver Disease, Osteoarthritis (OA), Pneumonia, Seizure Disorder, Sleep Apnea/CPAP/BIPAP Additional Past Medical History / Comment(s): states CVA at 35 yrs old, no weakness @ this time. states seizure at 35 yrs old., DDD- back & neck pain., carpal tunnel syndrome., hx. of cyst on kidney, uses cpap., states having abdominal pain with diarrhea and nausea ., Lives in a custodial with 2 other people. Has a caregiver.n Has [employer] public guardian. History of Any Multi-Drug Resistant Organisms: None Reported Past Surgical History: Heart Catheterization, Orthopedic Surgery Additional Past Surgical History / Comment(s): Cysts removed, left thumb surgery, colonoscopy 08/24/2019. Skin tags removed from both eyes. Past Anesthesia/Blood Transfusion Reactions: Motion Sickness, Postoperative Nausea & Vomiting (PONV) Past Psychological History: Anxiety, Bipolar, Depression, Schizophrenia Smoking Status: Current every day smoker Past Alcohol Use History: Rare Past Drug Use History: None Reported - Past Family History Brother(s) Family Medical History: Diabetes Mellitus Additional Family Medical History / Comment(s): Patient has 2 brothers. One from complications from diabetes. The second is alive with diabetes. Sister(s) Family Medical History: Cancer Additional Family Medical History / Comment(s): Patient has one sister with breast cancer. Patient does not have any children. Father Family Medical History: Cancer Additional Family Medical History / Comment(s): Father in his 40s or 50s from colon cancer. Mother Family Medical History: Cancer Additional Family Medical History / Comment(s): Mother at age 68 from lung cancer. General Exam Limitations: no limitations General appearance: alert, in no apparent distress Eye exam: Present: normal appearance Neck exam: Present: normal inspection Respiratory exam: Present: wheezes Cardiovascular Exam: Present: regular rate GI/Abdominal exam: Present: soft Neurological exam: Present: alert, oriented X3 Skin exam: Present: warm, dry Course Vital Signs 08/20/23 08/20/23 08/20/23 17:08 17:55 18:11 Temperature 98.3 F 98.6 F Pulse Rate 83 75 72 Pulse Rate [ 80 Tile Helper ] Respiratory 18 18 18 Rate Blood Pressure 128/82 119/80 O2 Sat by Pulse 99 96 99 Oximetry 08/20/23 20:00 Temperature Pulse Rate 75 Pulse Rate [ [place]ile [place] ] Respiratory 16 Rate Blood Pressure 119/80 O2 Sat by Pulse 98 Oximetry Chest Pain MDM - MDM Was pt. sent in by a medical professional or institution (, PA, TELEVISION MAINTENANCE MAN, urgent care, hospital, or long term...) When possible be specific @ -No Did you speak to anyone other than the patient for history (EMS, parent, family, police, friend...)? What history was obtained from this source @ -No Did you review nursing and triage notes (agree or disagree)? Why? @ -I reviewed and agree with nursing and triage notes Were old charts reviewed (outside hosp., previous admission, EMS record, old EKG, old radiological studies, urgent care reports/EKG's, long term records)? Report findings @ -No old charts were reviewed Differential Diagnosis (chest pain, altered mental status, abdominal pain women, abdominal pain men, vaginal bleeding, weakness, fever, dyspnea, syncope, headache, dizziness, GI bleed, back pain, seizure, CVA, palpatations, mental health, musculoskeletal)? @ -Differential Chest Pain: Stable Angina, Unstable Angina, STEMI, NSTEMI Aortic Dissection, Pneumothorax, Musculoskeletal, Esophageal Spasm GERD, Cholecystitis, Pancreatitis, Zoster, this is not meant to be an all-inclusive list. EKG interpreted by me (3pts min.). @ -EKG shows a sinus rhythm at [address] or T wave changes. IL 145, QRS 110, QT/QTc 377/412. X-rays interpreted by me (1pt min.). @ -Chest x-ray interpreted me showing no evidence of acute finding. CT interpreted by me (1pt min.). @ -None done U/S interpreted by me (1pt. min.). @ -None done What testing was considered but not performed or refused? (CT, X-rays, U/S, labs)? Why? @ -None What meds were considered but not given or refused? Why? @ -None Did you discuss the management of the patient with other professionals (professionals i.e. , PA, TELEVISION MAINTENANCE MAN, lab, RT, psych nurse, case management social worker, military nurse, teacher, security flex officer, casework manager)? Give summary @ -Case discussed with [facility] who accepts admission. Was smoking cessation discussed for >3mins.? @ -No Was critical care preformed (if so, how long)? @ -No Were there social determinants of health that impacted care today? How? (Homelessness, low income, unemployed, alcoholism, drug addiction, transportation, low edu. Level, literacy, decrease access to med. care, prison, rehab)? @ -No Was there de-escalation of care discussed even if they declined (Discuss DNR or withdrawal of care, Hospice)? DNR status @ -No What co-morbidities impacted this encounter? (DM, HTN, Smoking, COPD, CAD, Cancer, CVA, ARF, Chemo, Hep., AIDS, mental health diagnosis, sleep apnea, mor bid obesity)? @ -None Was patient admitted / discharged? Hospital course, mention meds given and route, prescriptions, significant lab abnormalities, going to OR and other pertinent info. @ -Admission 53-year-old male presented to the ED with a chief complaint of chest pain. Pain atypical in nature and is reproducible on exam. Initial laboratory studies here including troponin unremarkable. Repeat pending. Patient does have risk for cardiac disease therefore patient will be admitted with consult to cardiology. In regards to depression and suicidal ideation consult to psychiatry will also be placed. Discussed plan of care with patient who is in agreement. Undiagnosed new problem with uncertain prognosis? @ -No Drug Therapy requiring intensive monitoring for toxicity (Heparin, Nitro, Insulin, Cardizem)? @ -No Were any procedures done? @ -No Diagnosis/symptom? @ -Chest pain, depression/suicidal ideation Acute, or Chronic, or Acute on Chronic? @ -Acute Uncomplicated (without systemic symptoms) or Complicated (systemic symptoms)? @ -Uncomplicated Side effects of treatment? @ -No Exacerbation, Progression, or Severe Exacerbation? @ -No Poses a threat to life or bodily function? How? (Chest pain, [place], [place], pneumonia, PE, COPD, DKA, ARF, appy, cholecystitis, CVA, Diverticulitis, Homicidal, Suicidal, threat to staff... and all critical care pts) @ -No Disposition Clinical Impression: Chest pain, Depression, Suicidal ideation Disposition: ADMITTED IP TO THIS HOSP Condition: Good Referrals: Ramya Saul MD [Primary Care Provider] - 1-2 days Time of Disposition: 20:40
[2023-08-20] MEDS ORDERED: NALOXONE 0.4 MG/ML 1 ML VIAL IV PRN (21:27)
[2023-08-20] MEDS: SODIUM CHLORIDE 0.9% 1,000 ML IV SCH (21:35)
[2023-08-21] MEDS: KETOROLAC 15 MG/ML 1 ML VIAL IVP PRN (00:17)
[2023-08-21] MEDS: LORazepam 2 MG/ML INJ IV STA (01:45)
[2023-08-21] MEDS: ACETAMINOPHEN TAB 325 MG TAB PO PRN (04:02)
[2023-08-21] MEDS: ONDANSETRON 4 MG/2 ML VIAL IVP PRN (04:02)
--- NOTE | 2023-08-21 11:04 | P.HPIM ---
History of Present Illness 53-year-old male was admitted with concerns of chest pain. Patient chest pain is noncardiac. Pain may patient main issues he does not like the care home and he said he is he does not want to go back to the place. Patient was admitted and was in the hospital for 4 days for the same issue at [facility] at that time patient was evaluated by social work there and was unable to place it any other place patient was not accepted at [facility] or rehabilitation facility and patient was sent back to the same care home. Patient denied any suicidal ideations or depression to me although apparently he did mention that he has some suicidal ideation to the nurse that admitted the patient. Patient had a recent stress test about a month and a half ago which was negative for any inducible ischemia. REVIEW OF SYSTEMS: CONSTITUTIONAL: No fever, no malaise, no fatigue. HEENT: No recent visual problems or hearing problems. Denied any sore throat. CARDIOVASCULAR: No orthopnea, PND, no palpitations, no syncope. PULMONARY: No shortness of breath, no cough, no hemoptysis. GASTROINTESTINAL: No diarrhea, no nausea, no vomiting, no abdominal pain. NEUROLOGICAL: No headaches, no weakness, no numbness. HEMATOLOGICAL: Denies any bleeding or petechiae. GENITOURINARY: Denies any burning micturition, frequency, or urgency. MUSCULOSKELETAL/RHEUMATOLOGICAL: Denies any joint pain, swelling, or any muscle pain. ENDOCRINE: Denies any polyuria or polydipsia. The rest of the 14-point review of systems is negative. PHYSICAL EXAMINATION: GENERAL: The patient is alert and oriented x3, not in any acute distress. Well developed, well nourished. HEENT: Pupils are round and equally reacting to light. EOMI. No scleral icterus. No conjunctival pallor. Normocephalic, atraumatic. No pharyngeal erythema. No thyromegaly. CARDIOVASCULAR: S1 and S2 present. No murmurs, rubs, or gallops. PULMONARY: Chest is clear to auscultation, no wheezing or crackles. ABDOMEN: Soft, nontender, nondistended, normoactive bowel sounds. No palpable organomegaly. MUSCULOSKELETAL: No joint swelling or deformity. EXTREMITIES: No cyanosis, clubbing, or pedal edema. NEUROLOGICAL: Gross neurological examination did not reveal any focal deficits. SKIN: No rashes. Assessment and plan -Chest pain atypical noncardiac, had a recent stress test rule out acute coronary syndromes no further intervention is needed at this time -Social issues: Social work will be consulted unfortunately no social services specialist resources available at this time despite of keeping him for 4 days likely current hospital and trying everything to placement if different care home or facility, we are unable to do that. Discussed with the weekend director case management and plan is to contact his guardian -Depression -COPD without any acute exacerbation -Type 2 diabetes mellitus -Hyperlipidemia -Hypertension -Seizure disorder -Sleep apnea -Schizophrenia DVT prophylaxis: Lovenox Past Medical History Past Medical History: Asthma, Chest Pain / Angina, COPD, CVA/TIA, Diabetes Mellitus, GERD/Reflux, Hearing Disorder / Deafness, Hyperlipidemia, Hypertension, Liver Disease, Osteoarthritis (OA), Pneumonia, Seizure Disorder, Sleep Apnea/CPAP/BIPAP Additional Past Medical History / Comment(s): states CVA at 35 yrs old, no weakness @ this time. states seizure at 35 yrs old., DDD- back & neck pain., ca rpal tunnel syndrome., hx. of cyst on kidney, uses cpap., states having abdominal pain with diarrhea and nausea ., Lives in a care home with 2 other people. Has a caregiver.n Has [employer] public guardian. History of Any Multi-Drug Resistant Organisms: None Reported Past Surgical History: Heart Catheterization, Orthopedic Surgery Additional Past Surgical History / Comment(s): Cysts removed, left thumb surgery, colonoscopy 08/24/2019. Skin tags removed from both eyes. Past Anesthesia/Blood Transfusion Reactions: Motion Sickness, Postoperative Nausea & Vomiting (PONV) Past Psychological History: Anxiety, Bipolar, Depression, Schizophrenia Smoking Status: Current every day smoker Past Alcohol Use History: Rare Past Drug Use History: None Reported - Past Family History Brother(s) Family Medical History: Diabetes Mellitus Additional Family Medical History / Comment(s): Patient has 2 brothers. One from complications from diabetes. The second is alive with diabetes. Sister(s) Family Medical History: Cancer Additional Family Medical History / Comment(s): Patient has one sister with breast cancer. Patient does not have any children. Father Family Medical History: Cancer Additional Family Medical History / Comment(s): Father in his 40s or 50s from colon cancer. Mother Family Medical History: Cancer Additional Family Medical History / Comment(s): Mother at age 68 from lung cancer. Medications and Allergies Home Medications Medication Instructions Recorded Confirmed Type Aspirin EC [Ecotrin Low Dose] 81 mg PO DAILY@0800 07/09/20 08/20/23 History lisinopriL [Zestril] 2.5 mg PO DAILY 01/19/22 08/20/23 History ARIPiprazole [Abilify] 15 mg PO DAILY 05/26/23 08/20/23 History Cholecalciferol [Vitamin D3 (25 25 mcg PO DAILY 05/26/23 08/20/23 History Mcg = 1000 Iu)] Melatonin 5 mg PO HS 05/26/23 08/20/23 History traZODone HCL [Desyrel] 100 mg PO HS 05/26/23 08/20/23 History Albuterol Inhaler [Ventolin Hfa 1 - 2 puff INHALATION RT-QID PRN 08/20/23 08/20/23 History Inhaler] Albuterol Nebulized [Ventolin 2.5 mg INHALATION RT-Q6H PRN 08/20/23 08/20/23 History Nebulized] Budesonide/Formoterol Fumarate 2 puff INHALATION RT-DAILY 08/20/23 08/20/23 History [Symbicort 80-4.5 Mcg Inhaler] Cyclobenzaprine [Flexeril] 10 mg PO TID PRN 08/20/23 08/20/23 History Diphenoxylate HCl/Atropine 1 tab PO QID PRN 08/20/23 08/20/23 History [Lomotil 2.5-0.025 mg Tablet] Esomeprazole Magnesium [NexIUM] 40 mg PO DAILY 08/20/23 08/20/23 History Meloxicam [Mobic] 15 mg PO DAILY 08/20/23 08/20/23 History Nitroglycerin Sl Tabs [Nitrostat] 0.4 mg SUBLINGUAL Q5M PRN 08/20/23 08/20/23 History Promethazine HCl 12.5 mg PO QID PRN 08/20/23 08/20/23 History metFORMIN HCL ER [Glucophage XR] 1,000 mg PO BID 08/20/23 08/20/23 History Allergies Allergy/AdvReac Type Severity Reaction Status Date / Time dicyclomine HCl [From Bentyl] Allergy Unknown Dyspnea Verified 08/20/23 21:58 latex Allergy Unknown Rash/Hives Verified 08/20/23 21:58 Benzoate Analogues Allergy Unknown Verified 08/20/23 21:58 nitrofurantoin Allergy Unknown Verified 08/20/23 21:58 [From Macrobid] Penicillins Allergy "[place] Verified 08/20/23 21:58 funny" adhesive AdvReac Unknown Itching Verified 08/20/23 21:58 ciprofloxacin AdvReac Unknown Nausea Verified 08/20/23 21:58 Macrolide Antibiotics AdvReac Unknown Nausea Verified 08/20/23 21:58 sulfamethoxazole AdvReac Unknown Unknown Verified 08/20/23 21:58 [From Bactrim] trimethoprim [From Bactrim] AdvReac Unknown Unknown Verified 08/20/23 21:58 Physical Exam Vitals: Vital Signs Temp Pulse Pulse Resp BP Pulse Ox 08/21/23 10:30 98.1 F 78 17 141/99 100 08/21/23 05:48 98.2 F 68 16 110/72 98 08/20/23 23:00 74 16 132/87 97 08/20/23 21:00 64 16 114/86 98 08/20/23 20:00 75 16 119/80 98 08/20/23 18:11 72 18 119/80 99 08/20/23 17:55 98.6 F 75 80 18 96 08/20/23 17:08 98.3 F 83 18 128/82 99 Intake and Output 08/20/23 08/21/23 08/21/23 22:59 06:59 14:59 Other: Weight 79.379 kg Results CBC & Chem 7: 08/20/23 19:39 08/20/23 19:39 Labs: Abnormal Lab Results - Last 24 Hours (Table) 08/20/23 08/20/23 Range/Units 19:39 19:39 Hgb 17.6 H (13.0-17.5) gm/dL Glucose 157 H (74-99) mg/dL ALT 56 H (4-49) U/L
[2023-08-21] MEDS ORDERED: NITROGLYCERIN SL TABS 0.4 MG TAB SUBLINGUAL PRN (11:05)
[2023-08-21] MEDS ORDERED: ALBUTEROL NEBULIZED 2.5 MG/3 ML INHALATION PRN (11:05)
[2023-08-21] MEDS ORDERED: PROMETHAZINE 25 MG TAB PO PRN (11:05)
[2023-08-21] MEDS ORDERED: DIPHENOX-ATROP 2.5-0.025 MG 1 EACH TAB PO PRN (11:05)
[2023-08-21] MEDS: FAMOTIDINE 20 MG TAB PO SCH (11:58)
[2023-08-21] MEDS: MAGNESIUM SULFATE-D5W PMX 1 GM in DEXTROSE/WATER 1 100ML.BAG IVPB SCH (11:58)
[2023-08-21] MEDS: ARIPiprazole 15 MG TAB PO SCH (11:58)
[2023-08-21] MEDS: NICOTINE 21MG/24HR PATCH TRANSDERM STA (12:50)
--- NOTE | 2023-08-21 14:42 | P.CRDCN ---
History of Present Illness Consult date: 08/21/23 Consult reason: chest pain History of present illness: This is Wernre Akhtar NP, I'm dictating on behalf of Dr. Pagan's H&P and A&P The patient was interviewed and examined. HPI: Patient is a pleasant 53-year-old male with a past medical history significant for hypercholesterolemia, tobacco use, asthma, chest pain, COPD, CVA, diabetes, GERD, hypertension, liver disease, osteoarthritis, and sleep apnea who presents to the emergency department with complaints of chest pain. Patient reports that he has had central chest pain with radiation to his right arm and shoulder. Patient does report a history of GERD and states that he had some difficulty breathing as well. In the emergency department patient had an EKG completed which was negative for any obvious acute changes. Troponins have been negative x 3. Upon examination patient reports resolution of the chest pain at this time. He is more concerned about being placed and a long-term care facility or somewhere where he can get rehab. ROS: [No fever, chills, or rigors] [no cough, phlegm, or expectoration] [no nausea, vomiting, or diarrhea] [no hematuria, dysuria] [no musculoskelatal complaints] [no strokes or seizures] [no skin lesions] EXAMINATION: GENERAL: Well-appearing, well-nourished and in no acute distress. NECK: Supple without JVD or thyromegaly. LUNGS: Breath sounds clear to auscultation bilaterally. Respiration equal and unlabored. No wheezes, rales or rhonchi. HEART: Regular rate and rhythm without murmurs, rubs or gallops. S1 and S2 heard. EXTREMITIES: Normal range of motion, no edema. No clubbing or cyanosis. Peripheral pulses intact and strong. REVIEW OF LABS, ECG & MEDICAL DATA: LABS: White count 8.5, hemoglobin 17.6, platelets 220, D-dimer 0.44, sodium 140, potassium 3.9, BUN 17, creatinine 0.68, calcium 10.1, magnesium 1.7, troponin x 3-less than 0.012 EKG: Normal sinus rhythm IMAGING: Chest x-ray dated 08/20/2023 shows no acute cardiopulmonary disease/process. VITALS: Temp 98.1, pulse 68, respirations 16, blood pressure 110/72, O2 saturation 98% on room air IMPRESSION: 1. Atypical chest pain 2. Depression 3. GERD PLAN: Patient's D-dimer is normal. Patient should be started on atorvastatin 20 mg daily. There is no evidence of SD or other etiology for the chest pain secondary to a negative EKG, negative troponins, and negative D-dimer. From a cardiology standpoint the patient may be discharged. Thank you for allowing us to participate in the care of this patient. Thank you for the consult and allowing us to participate in the care of this patient. Past Medical History Past Medical History: Asthma, Chest Pain / Angina, COPD, CVA/TIA, Diabetes Mellitus, GERD/Reflux, Hearing Disorder / Deafness, Hyperlipidemia, Hypertension, Liver Disease, Osteoarthritis (OA), Pneumonia, Seizure Disorder, Sleep Apnea/CPAP/BIPAP Additional Past Medical History / Comment(s): states CVA at 35 yrs old, no weakness @ this time. states seizure at 35 yrs old., DDD- back & neck pain., carpal tunnel syndrome., hx. of cyst on kidney, uses cpap., states having abdominal pain with diarrhea and nausea ., Lives in a care home with 2 other people. Has a caregiver.n Has [employer] public guardian. History of Any Multi-Drug Resistant Organisms: None Reported Past Surgical History: Heart Catheterization, Orthopedic Surgery Additional Past Surgical History / Comment(s): Cysts removed, left thumb surgery, colonoscopy 08/24/2019. Skin tags removed from both eyes. Past Anesthesia/Blood Transfusion Reactions: Motion Sickness, Postoperative Nausea & Vomiting (PONV) Past Psychological History: Anxiety, Bipolar, Depression, Schizophrenia Smoking Status: Current every day smoker Past Alcohol Use History: Rare Past Drug Use History: None Reported - Past Family History Brother(s) Family Medical History: Diabetes Mellitus Additional Family Medical History / Comment(s): Patient has 2 brothers. One from complications from diabetes. The second is alive with diabetes. Sister(s) Family Medical History: Cancer Additional Family Medical History / Comment(s): Patient has one sister with breast cancer. Patient does not have any children. Father Family Medical History: Cancer Additional Family Medical History / Comment(s): Father in his 40s or 50s from colon cancer. Mother Family Medical History: Cancer Additional Family Medical History / Comment(s): Mother at age 68 from lung cancer. Medications and Allergies Home Medications Medication Instructions Recorded Confirmed Type Aspirin EC [Ecotrin Low Dose] 81 mg PO DAILY@0800 07/09/20 08/20/23 History lisinopriL [Zestril] 2.5 mg PO DAILY 01/19/22 08/20/23 History ARIPiprazole [Abilify] 15 mg PO DAILY 05/26/23 08/20/23 History Cholecalciferol [Vitamin D3 (25 25 mcg PO DAILY 05/26/23 08/20/23 History Mcg = 1000 Iu)] Melatonin 5 mg PO HS 05/26/23 08/20/23 History traZODone HCL [Desyrel] 100 mg PO HS 05/26/23 08/20/23 History Albuterol Inhaler [Ventolin Hfa 1 - 2 puff INHALATION RT-QID PRN 08/20/23 08/20/23 History Inhaler] Albuterol Nebulized [Ventolin 2.5 mg INHALATION RT-Q6H PRN 08/20/23 08/20/23 History Nebulized] Budesonide/Formoterol Fumarate 2 puff INHALATION RT-DAILY 08/20/23 08/20/23 History [Symbicort 80-4.5 Mcg Inhaler] Cyclobenzaprine [Flexeril] 10 mg PO TID PRN 08/20/23 08/20/23 History Diphenoxylate HCl/Atropine 1 tab PO QID PRN 08/20/23 08/20/23 History [Lomotil 2.5-0.025 mg Tablet] Esomeprazole Magnesium [NexIUM] 40 mg PO DAILY 08/20/23 08/20/23 History Meloxicam [Mobic] 15 mg PO DAILY 08/20/23 08/20/23 History Nitroglycerin Sl Tabs [Nitrostat] 0.4 mg SUBLINGUAL Q5M PRN 08/20/23 08/20/23 History Promethazine HCl 12.5 mg PO QID PRN 08/20/23 08/20/23 History metFORMIN HCL ER [Glucophage XR] 1,000 mg PO BID 08/20/23 08/20/23 History Allergies Allergy/AdvReac Type Severity Reaction Status Date / Time dicyclomine HCl [From Bentyl] Allergy Unknown Dyspnea Verified 08/20/23 21:58 latex Allergy Unknown Rash/Hives Verified 08/20/23 21:58 Benzoate Analogues Allergy Unknown Verified 08/20/23 21:58 nitrofurantoin Allergy Unknown Verified 08/20/23 21:58 [From Macrobid] Penicillins Allergy "[place] Verified 08/20/23 21:58 funny" adhesive AdvReac Unknown Itching Verified 08/20/23 21:58 ciprofloxacin AdvReac Unknown Nausea Verified 08/20/23 21:58 Macrolide Antibiotics AdvReac Unknown Nausea Verified 08/20/23 21:58 sulfamethoxazole AdvReac Unknown Unknown Verified 08/20/23 21:58 [From Bactrim] trimethoprim [From Bactrim] AdvReac Unknown Unknown Verified 08/20/23 21:58 Physical Exam Vitals: Vital Signs Temp Pulse Pulse Resp BP Pulse Ox 08/21/23 10:30 98.1 F 78 17 141/99 100 08/21/23 05:48 98.2 F 68 16 110/72 98 08/20/23 23:00 74 16 132/87 97 08/20/23 21:00 64 16 114/86 98 08/20/23 20:00 75 16 119/80 98 08/20/23 18:11 72 18 119/80 99 08/20/23 17:55 98.6 F 75 80 18 96 08/20/23 17:08 98.3 F 83 18 128/82 99 Intake and Output 08/20/23 08/21/23 08/21/23 22:59 06:59 14:59 Other: Weight 79.379 kg Results 08/20/23 19:39 08/20/23 19:39 Cardiac Enzymes 08/20/23 08/20/23 08/20/23 Range/Units 19:39 19:39 23:49 AST 33 (17-59) U/L Troponin I <0.012 <0.012 (0.000-0.034) ng/mL 08/21/23 Range/Units 04:55 AST (17-59) U/L Troponin I <0.012 (0.000-0.034) ng/mL Coagulation 08/20/23 Range/Units 19:39 PT 10.6 (10.0-12.5) sec APTT 24.6 (22.0-30.0) sec CBC 08/20/23 Range/Units 19:39 WBC 8.5 (3.8-10.6) k/uL RBC 5.51 (4.30-5.90) m/uL Hgb 17.6 H (13.0-17.5) gm/dL Hct 49.3 (39.0-53.0) % Plt Count 220 (150-450) k/uL Comprehensive Metabolic Panel 08/20/23 Range/Units 19:39 Sodium 140 (137-145) mmol/L Potassium 3.9 (3.5-5.1) mmol/L Chloride 105 (98-107) mmol/L Carbon Dioxide 27 (22-30) mmol/L BUN 17 (9-20) mg/dL Creatinine 0.68 (0.66-1.25) mg/dL Glucose 157 H (74-99) mg/dL Calcium 10.1 (8.4-10.2) mg/dL AST 33 (17-59) U/L ALT 56 H (4-49) U/L Alkaline Phosphatase 75 (38-126) U/L Total Protein 7.4 (6.3-8.2) g/dL Albumin 5.0 (3.5-5.0) g/dL Current Medications Generic Name Dose Route Start Last Admin Trade Name Freq PRN Reason Stop Dose Admin Acetaminophen 650 mg 08/20/23 21:27 08/21/23 04:02 Acetaminophen Tab 325 Mg Tab PO 650 mg Q6HR PRN Administration Mild Pain or Fever > 100.5 Albuterol Sulfate 2.5 mg 08/21/23 11:05 Albuterol Nebulized 2.5 Mg/3 Ml INHALATION RT-QID PRN Shortness Of Breath Aripiprazole 15 mg 08/21/23 12:00 08/21/23 11:58 Aripiprazole 15 Mg Tab PO 15 mg DAILY PJ Administration Aspirin 81 mg 08/22/23 08:00 Aspirin 81 Mg PO DAILY@0800 [facility] Atorvastatin Calcium 20 mg 08/21/23 21:00 Atorvastatin 20 Mg Tab PO HS [facility] Budesonide/Formoterol Fumarate 2 puff 08/22/23 08:00 Symbicort 80-4.5 Mcg Inhaler INHALATION RT-DAILY [facility] Cyclobenzaprine HCl 10 mg 08/21/23 11:05 Cyclobenzaprine 10 Mg Tab PO TID PRN Muscle Pain Diphenoxylate HCl/Atropine 1 each 08/21/23 11:05 Diphenox-Atrop 2.5-0.025 Mg 1 Each Tab PO QID PRN Diarrhea Enoxaparin Sodium 40 mg 08/22/23 09:00 Enoxaparin 40 Mg/0.4 Ml Syringe SQ DAILY [facility] Famotidine 20 mg 08/21/23 11:30 08/21/23 11:58 Famotidine 20 Mg Tab PO 20 mg BID PJ Administration Sodium Chloride 1,000 mls @ 75 mls/hr 08/20/23 21:30 08/21/23 10:33 Saline 0.9% IV Not Given .[id number] [facility] Ketorolac Tromethamine 15 mg 08/20/23 21:27 08/21/23 00:17 Ketorolac 15 Mg/Ml 1 Ml Vial IVP 08/23/23 21:29 15 mg Q6HR PRN Administration Moderate Pain (Scale 4 to 6) Metformin HCl 1,000 mg 08/21/23 21:00 Metformin 500 Mg Tab PO BID [facility] Naloxone HCl 0.2 mg 08/20/23 21:27 Naloxone 0.4 Mg/Ml 1 Ml Vial IV Q2M PRN Opioid Reversal Nitroglycerin 0.4 mg 08/21/23 11:05 Nitroglycerin Sl Tabs 0.4 Mg Tab SUBLINGUAL Q5M PRN Chest Pain Ondansetron HCl 4 mg 08/20/23 21:27 08/21/23 04:02 Ondansetron 4 Mg/2 Ml Vial IVP 4 mg Q8HR PRN Administration Nausea And Vomiting Promethazine HCl 12.5 mg 08/21/23 11:05 Promethazine 25 Mg Tab PO QID PRN Nausea Trazodone HCl 100 mg 08/21/23 21:00 Trazodone Hcl 100 Mg Tab PO [facility] Intake and Output 08/20/23 08/21/23 08/21/23 22:59 06:59 14:59 Other: Weight 79.379 kg 08/20/23 19:39 08/20/23 19:39
[2023-08-21] MEDS: CYCLOBENZAPRINE 10 MG TAB PO PRN (15:00)
--- NOTE | 2023-08-21 19:48 | P.CN ---
Psychiatric Consult - . Consult date: 08/21/23 Consult:: 08/21/23 19:12 IDENTIFYING DATA: Patient is a single, unemployed, 52-year-old male who is a resident a snf REASON FOR REFERRAL: Psychiatry was consulted for suicidal ideation HISTORY OF PRESENT ILLNESS: The patient presented to the hospital for concerns about chest pain. He also expresses concerns regarding his snf and while he was at [facility], perinatal social worker was unable to find any alternative placement for him. Upon evaluation, patient is open and forthright although concrete. He says that his mood is "not too bad ". He reports being stressed about his health. He states that because he was stressed about his health, he said that he did NOT want to take more meds and end his life. He vehemently denies suicidal ideation, stating that he would be missed by his sister and his brother. He is future oriented in wanting to see them again and spend time with them. He says he does not like where he lives and was looking to get help with this. He is future oriented, cares about his health, and cares greatly about his placement. He reports not liking living in his snf to cause they do not allow him to eat as often as he would like. He also states that his roommate and the staff m ember often get into arguments and he does not like to witnessed them. However, he denies any verbal or physical abuse towards him. He has an impression that the staff member does not want him to reside there any longer. He repeatedly asks if he might be able to be placed somewhere else. Patient endorses good appetite. However, he states that his energy is sometimes low and that he lacks motivation at times. He reports enjoying watching TV and denies anhedonia. He notes issues with staying asleep and is agreeable with an increase in trazodone. He reports compliance on his medications and is able to recall the names of all the psychotropic medications. He says that the auditory hallucinations are very infrequent since he has been on Abilify. At this time patient denies any suicidal or homicidal ideations, intent or plan. Patient denies any auditory, visual hallucinations and denies any paranoia or delusions. PAST PSYCHIATRIC HISTORY: Patient has a history of schizophrenia. The patient's home medications include Abilify and trazodone. He has had previous trials of Prolixin Decanoate, Remeron, Invega, and BuSpar. The patient was last hospitalized at [facility] psychiatric unit in December 2022. He is open with [facility] and receives services. He denies any suicide attempts although he did not initially understand the question, thought he was asked if he ever had suicidal ideation, and said that he last experienced suicidal ideation a long time ago. PAST MEDICAL HISTORY: Past Medical History: Asthma, Chest Pain / Angina, COPD, CVA/TIA, Diabetes Mellitus, GERD/Reflux, Hearing Disorder / Deafness, Hyperlipidemia, Hypertension, Liver Disease, Osteoarthritis (OA), Pneumonia, Seizure Disorder, Sleep Apnea/CPAP/BIPAP Additional Past Medical History / Comment(s): states CVA at 35 yrs old, no weakness @ this time. states seizure at 35 yrs old., DDD- back & neck pain., carpal tunnel syndrome., hx. of cyst on kidney, uses cpap., states having abdominal pain with diarrhea and nausea ., Lives in a snf with 2 other people. Has a caregiver. Has [employer] public guardian. History of Any Multi-Drug Resistant Organisms: None Reported Past Surgical History: Heart Catheterization, Orthopedic Surgery Additional Past Surgical History / Comment(s): Cysts removed, left thumb surgery, colonoscopy 08/24/2019. Skin tags removed from both eyes. Past Anesthesia/Blood Transfusion Reactions: Motion Sickness, Postoperative Nausea & Vomiting (PONV) Past Psychological History: Anxiety, Bipolar, Depression, Schizophrenia Smoking Status: Current every day smoker Past Alcohol Use History: Rare Past Drug Use History: None Reported ALLERGIES: as per EMR. CHEMICAL DEPENDENCY HISTORY: Patient smokes one pack per day and denies all other substance use. He says people around him smoke cannabis but he does not. FAMILY PSYCHIATRIC/SUBSTANCE USE HISTORY: Brother: depression SOCIAL HISTORY: Patient was born and raised in [place]. He currently lives with roommate. He is single, never , and has no children. He does have a guardian. He receives Social Security. He denies any legal issues. He currently resides a snf. MENTAL STATUS EXAM: General Appearance: Patient appears to be stated age is alert, pleasant, and cooperative. Patient is in no acute distress and has fair hygiene and grooming Behavior: Patient is calmly seated without any agitated behavior. Speech: Patient's speech is fluent and nonpressured. Mood/Affect: Patient reports their mood is "not bad", affect is congruent and euthymic. Suicidality/Homicidality: Patient denies having any suicidal or homicidal ideation intent or plan. Perceptions: Patient denies any auditory or visual hallucinations. Though content/process: There is no evidence of any delusional thought content and thought process is linear and goal-directed. Patient is future and goal oriented. Memory and concentration: AOX3, grossly intact for the purposes of this session. Judgment and insight: Fair insight, chronically poor judgment IMPRESSIONS: Schizophrenia Tobacco use disorder PLAN: -At this time patient DOES NOT meet criteria for inpatient psychiatric admission. Does not express suicidal ideation, intent, or plan. -Increase trazodone to 150 mg qHS for sleep. Continue Abilify 15 mg daily -Can discontinue 1:1 sitter at this time as patient is not currently an imminent threat to themselves -APS case filed by this provider - SW to f/u with any additional info, including name of snf, etc. -boat worker to provide patient with outpatient mental health/psychiatry follow up upon discharge - follow-up with [facility]. Social work to assist with ffinding placement, potentially at a skilled nursing or retirement care facility -Communicated plan to patient's nurse -Psychiatry will sign off at this time -Please contact with any questions.
[2023-08-21 20:27] LABS: Glucose,Whole Blood 148 mg/dL (70-110)
[2023-08-21] MEDS ORDERED: traZODone HCL 100 MG TAB PO SCH (21:00)
[2023-08-21] MEDS: metFORMIN 500 MG TAB PO SCH (21:07)
[2023-08-21] MEDS: ATORVASTATIN 20 MG TAB PO SCH (21:07)
[2023-08-21] MEDS: traZODone HCL 100 MG TAB PO SCH (21:08)
[2023-08-22 06:23] LABS: Glucose,Whole Blood 156 mg/dL (70-110)
[2023-08-22] MEDS: ASPIRIN 81 MG PO SCH (08:51)
[2023-08-22] MEDS: ENOXAPARIN 40 MG/0.4 ML SYRINGE SQ SCH (08:51)
[2023-08-22] MEDS: SYMBICORT 80-4.5 MCG INHALER INHALATION SCH (11:52)
--- NOTE | 2023-08-22 12:49 | P.PN ---
Subjective Progress Note Date: 08/22/23 53-year-old male was admitted with concerns of chest pain. Patient chest pain is noncardiac. Pain may patient main issues he does not like the senior care and he said he is he does not want to go back to the place. Patient was admitted and was in the hospital for 4 days for the same issue at [facility] at that time patient was evaluated by social work there and was unable to place it any other place patient was not accepted at skilled nursing or rehabilitation facility and patient was sent back to the same senior care. Patient denied any suicidal ideations or depression to me although apparently he did mention that he has some suicidal ideation to the nurse that admitted the patient. Patient had a recent stress test about a month and a half ago which was negative for any inducible ischemia. 08/22/2023 Patient is evaluated today sitting up in the chair no acute complaints no concerns for chest pain and no suicidal ideations. He was cleared by both consultations of cardiology and psychiatry. Patient will need to follow-up with social work and his guardian regarding placement he does not want to return back to his senior care this will need to be done on Wednesday. He has been up ambu latin in the hallways without difficulty. Review of Systems Constitutional: Denied any fatigue denied any fever. Cardio vascular: denied any chest pain, palpitations Gastrointestinal: denied any nausea, vomiting, diarrhea Pulmonary: Denied any shortness of breath cough Neurologic denied any new focal deficits All inpatient medications were reviewed and appropriate changes in these medications as dictated in the interval history and assessment and plan. PHYSICAL EXAMINATION: GENERAL: The patient is alert and oriented x3, not in any acute distress. Well developed, well nourished. HEENT: Pupils are round and equally reacting to light. EOMI. No scleral icterus. No conjunctival pallor. Normocephalic, atraumatic. No pharyngeal erythema. No thyromegaly. CARDIOVASCULAR: S1 and S2 present. No murmurs, rubs, or gallops. PULMONARY: Chest is clear to auscultation, no wheezing or crackles. ABDOMEN: Soft, nontender, nondistended, normoactive bowel sounds. No palpable organomegaly. MUSCULOSKELETAL: No joint swelling or deformity. EXTREMITIES: No cyanosis, clubbing, or pedal edema. NEUROLOGICAL: Gross neurological examination did not reveal any focal deficits. SKIN: No rashes. Assessment and plan -Chest pain atypical noncardiac, had a recent stress test rule out acute coronary syndromes no further intervention is needed at this time cardiology has cleared -Social issues: Social work will be consulted unfortunately no social worker clinical resources available at this time despite of keeping him for 4 days likely current hospital and trying everything to placement if different senior care or facility, we are unable to do that. Discussed with the weekend counter caser and plan is to contact his guardian this will need to be followed up on Wednesday -Depression -COPD without any acute exacerbation -Type 2 diabetes mellitus -Hyperlipidemia -Hypertension -Seizure disorder -Sleep apnea -Schizophrenia DVT prophylaxis: Lovenox The impression and plan of care has been dictated by Alecia Inman Nurse Practitioner as directed. Dr. Estela MD I have performed a history and physical examination and medical decision making of this patient, discussed the same with the dictator, and agree with the dictators assessment and plan as written, documented as a scribe. Based on total visit time, I have performed more than 50% of this visit. Objective - Vital Signs Vital signs: Vital Signs Temp 97.8 F 08/22/23 07:05 Pulse 61 08/22/23 07:05 Resp 16 08/22/23 07:05 BP 104/67 08/22/23 07:05 Pulse Ox 97 08/22/23 11:55 FiO2 Intake & Output 08/21/23 08/22/23 08/22/23 18:59 06:59 18:59 Intake Total 236 298 Output Total 800 200 Balance 236 -800 98 Intake: Oral 236 298 Output: Urine 800 200 Other: Voiding Method Toilet Urinal # Voids 1 - Labs CBC & Chem 7: 08/20/23 19:39 08/20/23 19:39 Labs: Abnormal Lab Results - Last 24 Hours (Table) 08/21/23 08/22/23 Range/Units 20:25 06:22 POC Glucose (mg/dL) 148 H 156 H (70-110) mg/dL Assessment and Plan Time with Patient: Less than 30
[2023-08-22 21:53] LABS: Glucose,Whole Blood 173 mg/dL (70-110)
[2023-08-23 05:20] VITALS: RESP 16
[2023-08-23 07:51] LABS: Glucose,Whole Blood 128 mg/dL (70-110)
[2023-08-23 09:35] VITALS: PULSE 80
[2023-08-23 15:11] VITALS: BP 139/66; TEMP 98.9
--- NOTE | 2023-08-24 14:06 | P.DS ---
Providers Date of admission: 08/20/23 21:29 Expected date of discharge: 08/23/23 Attending physician: Baldemar Washington Consults: 08/20/23 21:27 Consult Physician Urgent Consulting Provider: [facility] Consult Reason/Comments: Chest pain Do you want consulting provider notified?: Yes Consult Physician Urgent Consulting Provider: Uriel Jarrell Consult Reason/Comments: Depression/SI Do you want consulting provider notified?: Yes Primary care physician: Ramya Saul Hospital Course: Final diagnosis -Chest pain atypical noncardiac, had a recent stress test ruled out acute coronary syndromes -Social issues: Patient to return to [facility] and follow-up with legal guardian outpatient for other AFC homes -Depression -COPD without any acute exacerbation -Type 2 diabetes mellitus -Hyperlipidemia -Hypertension -Seizure disorder -Sleep apnea -Schizophrenia Discharge disposition Patient is being discharged in a stable condition with guarded prognosis to [facility] home. Patient will follow-up with Dr. Saul in the outpatient setting upon discharge. Patient is to follow-up with cardiology outpatient as scheduled. Total time taken is greater than 35 minutes. Hospital course This is a 53-year-old male who was recently admitted with chest pain being evaluated with cardiology following. Patient had a recent stress test and ruled out ACS, likely atypical noncardiac in nature. Patient also having issues with chronic depression and evaluated by psychiatry with adjustments to medications made recommending outpatient follow-up with [facility]. Patient also having social issues regarding his current living situation and does not want to return to his AFC home although multiple attempts at finding other facilities to accept have been unsuccessful. Patient to follow-up with [facility] outpatient along with guardian regarding other AFC homes available. Patient has been cleared by consultations. Please refer to consultation note for further HPI. Currently no reports of chest pain, shortness of breath, or palpitations. Patient is afebrile. No reports of nausea or vomiting and patient is tolerating diet. Patient will be discharged home today. Physical exam: Gen: This is a 53-year-old male who is awake, alert and oriented x 2-3, baseline, well-developed, well-nourished, appears elderly HEENT: Head is atraumatic, normocephalic. Pupils equal, round. Sclerae is anicteric. NECK: Supple. No JVD. No lymphadenopathy. No thyromegaly. LUNGS: Clear to auscultation. No wheezes or rhonchi. No intercostal retractions. HEART: Regular rate and rhythm. No murmur. ABDOMEN: Soft. Bowel sounds are present. No masses. No tenderness. EXTREMITIES: No pedal edema. No calf tenderness. NEUROLOGICAL: Patient is awake, alert and oriented x3. Cranial nerves 2 through 12 are grossly intact. Please refer to medication reconciliation sheet for a list of medications. The impression and plan of care has been dictated by Nurse Latonia Pra ctitioner as directed. Dr. Estela MD I have performed a history and examination and MDM of this patient, discussed the same with the dictator, and agree with the dictator's assessment and plan as written ,documented as a scribe. Based on total visit time, I have performed more than 50% of the visit. Patient Condition at Discharge: Good Plan - Discharge Summary New Discharge Prescriptions: New Atorvastatin [Lipitor] 20 mg PO HS #30 tab Acetaminophen Tab [Tylenol] 650 mg PO Q6HR PRN tab PRN Reason: Mild Pain Or Fever > 100.5 Ondansetron Odt [Zofran Odt] 4 mg PO Q8HR PRN #10 tab PRN Reason: Nausea Continue Aspirin EC [Ecotrin Low Dose] 81 mg PO DAILY@0800 ARIPiprazole [Abilify] 15 mg PO DAILY Cholecalciferol [Vitamin D3 (25 Mcg = 1000 Iu)] 25 mcg PO DAILY Melatonin 5 mg PO HS Budesonide/Formoterol Fumarate [Symbicort 80-4.5 Mcg Inhaler] 2 puff INHALATION RT-DAILY Cyclobenzaprine [Flexeril] 10 mg PO TID PRN PRN Reason: Muscle Pain Esomeprazole Magnesium [NexIUM] 40 mg PO DAILY Nitroglycerin Sl Tabs [Nitrostat] 0.4 mg SUBLINGUAL Q5M PRN PRN Reason: Chest Pain metFORMIN HCL ER [Glucophage XR] 1,000 mg PO BID Albuterol Inhaler [Ventolin Hfa Inhaler] 1 - 2 puff INHALATION RT-QID PRN PRN Reason: Shortness Of Breath Albuterol Nebulized [Ventolin Nebulized] 2.5 mg INHALATION RT-Q6H PRN PRN Reason: Shortness Of Breath Promethazine HCl 12.5 mg PO QID PRN PRN Reason: Nausea Diphenoxylate HCl/Atropine [Lomotil 2.5-0.025 mg Tablet] 1 tab PO QID PRN PRN Reason: Diarrhea Changed traZODone HCL [Desyrel] 150 mg PO HS 30 Days #45 tab Discontinued lisinopriL [Zestril] 2.5 mg PO DAILY Meloxicam [Mobic] 15 mg PO DAILY Discharge Medication List Aspirin EC [Ecotrin Low Dose] 81 mg PO DAILY@0800 07/09/20 [History] ARIPiprazole [Abilify] 15 mg PO DAILY 05/26/23 [History] Cholecalciferol [Vitamin D3 (25 Mcg = 1000 Iu)] 25 mcg PO DAILY 05/26/23 [History] Melatonin 5 mg PO HS 05/26/23 [History] Albuterol Inhaler [Ventolin Hfa Inhaler] 1 - 2 puff INHALATION RT-QID PRN 08/20/23 [History] Albuterol Nebulized [Ventolin Nebulized] 2.5 mg INHALATION RT-Q6H PRN 08/20/23 [History] Budesonide/Formoterol Fumarate [Symbicort 80-4.5 Mcg Inhaler] 2 puff INHALATION RT-DAILY 08/20/23 [History] Cyclobenzaprine [Flexeril] 10 mg PO TID PRN 08/20/23 [History] Diphenoxylate HCl/Atropine [Lomotil 2.5-0.025 mg Tablet] 1 tab PO QID PRN [History] Esomeprazole Magnesium [NexIUM] 40 mg PO DAILY 08/20/23 [History] Nitroglycerin Sl Tabs [Nitrostat] 0.4 mg SUBLINGUAL Q5M PRN 08/20/23 [History] Promethazine HCl 12.5 mg PO QID PRN 08/20/23 [History] metFORMIN HCL ER [Glucophage XR] 1,000 mg PO BID 08/20/23 [History] Acetaminophen Tab [Tylenol] 650 mg PO Q6HR PRN tab 08/23/23 [Rx] Atorvastatin [Lipitor] 20 mg PO HS #30 tab 08/23/23 [Rx] Ondansetron Odt [Zofran Odt] 4 mg PO Q8HR PRN #10 tab 08/23/23 [Rx] traZODone HCL [Desyrel] 150 mg PO HS 30 Days #45 tab 08/23/23 [Rx] Follow up Appointment(s)/Referral(s): Ramya Saul MD [Primary Care Provider] - 1-2 days Activity/Diet/Wound Care/Special Instructions: Patient to follow-up with primary care provider on discharge Continue taking medications as prescribed Discharge Disposition: TRANSFER TO SNF/ECF
== END 2023-08-23 15:59 ==
LOC: EC 16:50 → 6NMEDSUR 21:29
PROVIDERS: ADMIT Internal Medicine; ATTEND Internal Medicine
DX: R07.89 Other chest pain (principal); R45.851 Suicidal ideations; F20.9 Schizophrenia, unspecified; J44.9 Chronic obstructive pulmonary disease, unspecified; E11.9 Type 2 diabetes mellitus without complications; K21.9 Gastro-esophageal reflux disease without esophagitis; I10 Essential (primary) hypertension; G47.30 Sleep apnea, unspecified; F41.9 Anxiety disorder, unspecified; F31.9 Bipolar disorder, unspecified; E78.00 Pure hypercholesterolemia, unspecified; G40.909 Epilepsy, unspecified, not intractable, without status epilepticus; F17.200 Nicotine dependence, unspecified, uncomplicated; Z56.0 Unemployment, unspecified; Z86.73 Personal history of transient ischemic attack (TIA), and cerebral infarction without residual deficits; Z79.82 Long term (current) use of aspirin; Z79.899 Other long term (current) drug therapy; Z79.84 Long term (current) use of oral hypoglycemic drugs; Z79.1 Long term (current) use of non-steroidal anti-inflammatories (NSAID); Z88.0 Allergy status to penicillin; Z88.1 Allergy status to other antibiotic agents; Z88.2 Allergy status to sulfonamides; Z91.040 Latex allergy status
CPT/HCPCS: 96376 ×3; 96372 ×2; 82075; 96361 ×2; 96365; 96366; 96375; 99285; 36415; 94640 ×2; 94760; 93005; 85379; 80053; 83735; 84484 ×2; 85025; 85610; 85730; 81003; 80306; 71046; G0378 ×4; S4990; J2060; J2405 ×3; J1650 ×2; J3475; J1885 ×3

== ENCOUNTER 2023-08-26 12:30 | Emergency (ER) | payer MEDICARE, OTHER ==
[2023-08-26 13:17] VITALS: RESP 18; TEMP 98.8
--- NOTE | 2023-08-26 14:28 | ED ---
Fall HPI - General Chief Complaint: Fall Stated Complaint: FALL Time Seen by Provider: 08/26/23 13:40 Source: patient, RN notes reviewed, old records reviewed Mode of arrival: ambulatory Limitations: no limitations - History of Present Illness Initial Comments: This is a 53-year-old male well-known to this facility for evaluation regards to chest pain. Patient has no suspicious cause of chest pain found. Patient was recently admitted to the hospital and is found to not like his current living situation and is expected to be of frequent visitor to the ER over the next few days. 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 Fall Witnessed: no Place Fall Occurred: home Loss of Consciousness: none Prolonged Down Time?: no Symptoms Prior to Fall: none Location: chest Severity: moderate Severity scale (1-10): 3 Quality: burning Context: tripped/slipped Associated Symptoms: denies - Related Data Home Medications Medication Instructions Recorded Confirmed Aspirin EC [Ecotrin Low Dose] 81 mg PO DAILY 07/09/20 08/27/23 ARIPiprazole [Abilify] 15 mg PO DAILY 05/26/23 08/27/23 Cholecalciferol [Vitamin D3 (25 25 mcg PO DAILY 05/26/23 08/27/23 Mcg = 1000 Iu)] Melatonin 5 mg PO HS 05/26/23 08/27/23 Albuterol Inhaler [Ventolin Hfa 1 - 2 puff INHALATION RT-QID PRN 08/20/23 08/27/23 Inhaler] Albuterol Nebulized [Ventolin 2.5 mg INHALATION RT-Q6H PRN 08/20/23 08/27/23 Nebulized] Budesonide/Formoterol Fumarate 2 puff INHALATION RT-DAILY 08/20/23 08/27/23 [Symbicort 80-4.5 Mcg Inhaler] Cyclobenzaprine [Flexeril] 10 mg PO TID PRN 08/20/23 08/27/23 Diphenoxylate HCl/Atropine 1 tab PO QID PRN 08/20/23 08/27/23 [Lomotil 2.5-0.025 mg Tablet] Esomeprazole Magnesium [NexIUM] 40 mg PO DAILY 08/20/23 08/27/23 Nitroglycerin Sl Tabs [Nitrostat] 0.4 mg SL Q5M PRN 08/20/23 08/27/23 Promethazine HCl 12.5 mg PO QID PRN 08/20/23 08/27/23 metFORMIN HCL ER [Glucophage XR] 1,000 mg PO BID 08/20/23 08/27/23 traZODone HCL 150 mg PO HS 08/27/23 08/27/23 Previous Rx's Medication Instructions Recorded Acetaminophen Tab [Tylenol] 650 mg PO Q6HR PRN tab 08/23/23 Atorvastatin [Lipitor] 20 mg PO HS #30 tab 08/23/23 Ondansetron Odt [Zofran Odt] 4 mg PO Q8HR PRN #10 tab 08/23/23 Allergies Allergy/AdvReac Type Severity Reaction Status Date / Time dicyclomine HCl [From Bentyl] Allergy Unknown Dyspnea Verified 08/27/23 13:02 latex Allergy Unknown Rash/Hives Verified 08/27/23 13:02 Benzoate Analogues Allergy Unknown Verified 08/27/23 13:02 nitrofurantoin Allergy Unknown Verified 08/27/23 13:02 [From Macrobid] Penicillins Allergy "[place] Verified 08/27/23 13:02 funny" adhesive AdvReac Unknown Itching Verified 08/27/23 13:02 ciprofloxacin AdvReac Unknown Nausea Verified 08/27/23 13:02 Macrolide Antibiotics AdvReac Unknown Nausea Verified 08/27/23 13:02 sulfamethoxazole AdvReac Unknown Unknown Verified 08/27/23 13:02 [From Bactrim] trimethoprim [From Bactrim] AdvReac Unknown Unknown Verified 08/27/23 13:02 Review of Systems ROS Statement: Those systems with pertinent positive or pertinent negative responses have been documented in the HPI. ROS Other: All systems not noted in ROS Statement are negative. Past Medical History Past Medical History: Asthma, Chest Pain / Angina, COPD, CVA/TIA, Diabetes Mellitus, GERD/Reflux, Hearing Disorder / Deafness, Hyperlipidemia, Hypertension, Liver Disease, Osteoarthritis (OA), Pneumonia, Seizure Disorder, Sleep Apnea/CPAP/BIPAP Additional Past Medical History / Comment(s): states CVA at 35 yrs old, no weakness @ this time. states seizure at 35 yrs old., DDD- back & neck pain., carpal tunnel syndrome., hx. of cyst on kidney, uses cpap., states having abdominal pain with diarrhea and nausea ., Lives in a long term with 2 other people. Has a caregiver.n Has [facility] public guardian. History of Any Multi-Drug Resistant Organisms: None Reported Past Surgical History: Heart Catheterization, Orthopedic Surgery Additional Past Surgical History / Comment(s): Cysts removed, left thumb surgery, colonoscopy 08/24/2019. Skin tags removed from both eyes. Past Anesthesia/Blood Transfusion Reactions: Motion Sickness, Postoperative Nausea & Vomiting (PONV) Past Psychological History: Anxiety, Bipolar, Depression, Schizophrenia Smoking Status: Current every day smoker Past Alcohol Use History: Rare Past Drug Use History: None Reported - Past Family History Brother(s) Family Medical History: Diabetes Mellitus Additional Family Medical History / Comment(s): Patient has 2 brothers. One from complications from diabetes. The second is alive with diabetes. Sister(s) Family Medical History: Cancer Additional Family Medical History / Comment(s): Patient has one sister with breast cancer. Patient does not have any children. Father Family Medical History: Cancer Additional Family Medical History / Comment(s): Father in his 40s or 50s from colon cancer. Mother Family Medical History: Cancer Additional Family Medical History / Comment(s): Mother at age 68 from lung cancer. General Exam Limitations: physical limitation General appearance: alert, in no apparent distress Head exam: Present: atraumatic, normocephalic, normal inspection Eye exam: Present: normal appearance, PERRL, EOMI. Absent: scleral icterus, c onjunctival injection, periorbital swelling ENT exam: Present: normal exam, mucous membranes moist Neck exam: Present: normal inspection. Absent: tenderness, meningismus, lymphadenopathy Respiratory exam: Present: normal lung sounds bilaterally. Absent: respiratory distress, wheezes, rales, rhonchi, stridor Cardiovascular Exam: Present: regular rate, normal rhythm, normal heart sounds. Absent: systolic murmur, diastolic murmur, rubs, gallop, clicks GI/Abdominal exam: Present: soft, normal bowel sounds. Absent: distended, tenderness, guarding, rebound, rigid Extremities exam: Present: normal inspection, full ROM, normal capillary refill. Absent: tenderness, pedal edema, joint swelling, calf tenderness Back exam: Present: normal inspection Neurological exam: Present: alert, oriented X3, CN II-XII intact Psychiatric exam: Present: normal affect, normal mood Skin exam: Present: warm, dry, intact, normal color. Absent: rash Course Vital Signs 08/26/23 08/26/23 12:46 15:26 Temperature 98.8 F Pulse Rate 84 78 Respiratory 18 18 Rate Blood Pressure 118/77 126/78 O2 Sat by Pulse 97 98 Oximetry - Reevaluation(s) Reevaluation #1: Medical records reviewed Reevaluation #2: Patient symptoms unchanged Reevaluation #3: Patient informed of results and questions answered Reevaluation #4: Was pt. sent in by a medical professional or institution (, [facility], [facility]PANDER, urgent care, hospital, or shelter...) When possible be specific @ -no Did you speak to anyone other than the patient for history (EMS, parent, family, police, friend...)? What history was obtained from this source @ -no Did you review nursing and triage notes (agree or disagree)? Why? @ -agree Are old charts reviewed (outside hosp., previous admission, EMS record, old EKG, old radiological studies, urgent care reports/EKG's, shelter records)? Report findings @ -yes Differential Diagnosis (chest pain, altered mental status, abdominal pain women, abdominal pain men, vaginal bleeding, weakness, fever, dyspnea, syncope, headache, dizziness, GI bleed, back pain, seizure, CVA, palpatations, mental health, musculoskeletal)? @ -prior EKG interpreted by me (3pts min.). @ -no X-rays interpreted by me (1pt min.). @ -yes negative for acute disease CT interpreted by me (1pt min.). @ -no U/S interpreted by me (1pt. min.). @ -no What testing was considered but not performed or refused? (CT, X-rays, U/S, labs)? Why? @ -none What meds were considered but not given or refused? Why? @ -none Did you discuss the management of the patient with other professionals (sandra stroud i.e. SEAN Cordova, EXPANDER, lab, RT, psych nurse, social insurance specialist, barrel cutter, teacher, medical scientific officer, clinical case manager)? Give summary @ -no Was smoking cessation discussed for >3mins.? @ -no Was critical care preformed (if so, how long)? @ -no Were there social determinants of health that impacted care today? How? (Homelessness, low income, unemployed, alcoholism, drug addiction, transportation, low edu. Level, literacy, decrease access to med. care, snf, rehab)? @ -none Was there de-escalation of care discussed even if they declined (Discuss DNR or withdrawal of care, Hospice)? DNR status @ -no What co-morbidities impacted this encounter? (DM, HTN, Smoking, COPD, CAD, Cancer, CVA, ARF, Chemo, Hep., AIDS, mental health diagnosis, sleep apnea, morbid obesity)? @ -none Was patient admitted / discharged? Hospital course, mention meds given and route, prescriptions, significant lab abnormalities, going to OR and other pertinent info. @ - 53 male to the ER for evaluation of some chest pain chest x-ray is negative for acute disease here patient can be discharged home Discharge Undiagnosed new problem with uncertain prognosis? @ -no Drug Therapy requiring intensive monitoring for toxicity (Heparin, Nitro, Insulin, Cardizem)? @ -no Were any procedures done? @ -no Diagnosis/symptom? @ -Chest pain Acute, or Chronic, or Acute on Chronic? @ -Acute Uncomplicated (without systemic symptoms) or Complicated (systemic symptoms)? @ -Complicated Side effects of treatment? @ -no Exacerbation, Progression, or Severe Exacerbation? @ -exacerbation Poses a threat to life or bodily function? How? (Chest pain, [place], [place], pneumonia, PE, COPD, DKA, ARF, appy, cholecystitis, CVA, Diverticulitis, Homicidal, Suicidal, threat to staff... and all critical care pts) @ -no Medical Decision Making - Medical Decision Making 53 male to the ER for evaluation of some chest pain chest x-ray is negative for acute disease here patient can be discharged home - Radiology Data Radiology results: report reviewed (Chest x-ray is negative for acute disease), image reviewed Disposition Clinical Impression: Fall, Chest pain Disposition: HOME SELF-CARE Condition: Good Instructions (If sedation given, give patient instructions): Fall Prevention (ED) Is patient prescribed a controlled substance at d/c from ED?: No Referrals: Ramya Saul MD [Primary Care Provider] - 1-2 days Time of Disposition: 14:30
[2023-08-26] MEDS: IBUPROFEN 800 MG TAB PO STA (14:36)
[2023-08-26] MEDS: ONDANSETRON 4 MG TAB PO STA (14:36)
--- NOTE | 2023-08-26 15:06 | XR ---
EXAMINATION TYPE: XR chest 1V portable DATE OF EXAM: 08/26/2023 Comparison: 08/20/2023 Clinical History: 53-year-old male with chest pain Findings: Heart upper limits of normal in size. Aorta and pulmonary vasculature within normal limits. Mild inte rstitial prominence is unchanged. No consolidation or pleural effusion. Impression: Chronic changes. No acute cardiopulmonary process.
[2023-08-26 15:31] VITALS: BP 126/78; PULSE 78
== END 2023-08-26 15:27 | disposition home or self-care (01) ==
LOC: EC 12:30
DX: S29.9XXA Unspecified injury of thorax, initial encounter (principal); E11.9 Type 2 diabetes mellitus without complications; I10 Essential (primary) hypertension; J44.89 Other specified chronic obstructive pulmonary disease; K21.9 Gastro-esophageal reflux disease without esophagitis; F31.9 Bipolar disorder, unspecified; F41.9 Anxiety disorder, unspecified; F20.9 Schizophrenia, unspecified; G40.909 Epilepsy, unspecified, not intractable, without status epilepticus; F17.200 Nicotine dependence, unspecified, uncomplicated; Z79.82 Long term (current) use of aspirin; Z79.51 Long term (current) use of inhaled steroids; Z79.84 Long term (current) use of oral hypoglycemic drugs; Z79.899 Other long term (current) drug therapy; Z88.0 Allergy status to penicillin; Z88.1 Allergy status to other antibiotic agents; Z88.2 Allergy status to sulfonamides; Z91.040 Latex allergy status; Z88.8 Allergy status to other drugs, medicaments and biological substances; Z91.09 Other allergy status, other than to drugs and biological substances; W01.0XXA Fall on same level from slipping, tripping and stumbling without subsequent striking against object, initial encounter; Y92.009 Unspecified place in unspecified non-institutional (private) residence as the place of occurrence of the external cause
CPT/HCPCS: 71045; 99284

== ENCOUNTER 2023-08-27 09:01 | Emergency (ER) | payer MEDICARE, OTHER ==
--- NOTE | 2023-08-27 09:48 | ED ---
SOB HPI - General Source: patient, RN notes reviewed Mode of arrival: ambulatory Limitations: no limitations <Attila Thibodeaux - Last Filed: 08/27/23 09:48> - General Source: patient, RN notes reviewed, old records reviewed Mode of arrival: ambulatory Limitations: no limitations <Nash Cedillo - Last Filed: 08/27/23 13:56> - General Chief Complaint: Shortness of Breath Stated Complaint: vomiting Time Seen by Provider: 08/27/23 09:11 - History of Present Illness Initial Comments: 53-year-old male presents emergency department with multiple complaints. Patient states he has shortness of breath which has been ongoing chronic states he also has nausea does not feel well. He has been seen in the ER several times of recent. He claims he contacted his doctor who advised him come the right department for evaluation. He reports no fever. (Attila Thibodeaux) Patient is a 53-year-old male presenting to the emergency department with vomiting. Onset of symptoms was several days ago. Patient also complains of some cough. Patient states he may be a little bit short of breath. (Nash Cedillo) - Related Data Home Medications Medication Instructions Recorded Confirmed Aspirin EC [Ecotrin Low Dose] 81 mg PO DAILY 07/09/20 08/27/23 ARIPiprazole [Abilify] 15 mg PO DAILY 05/26/23 08/27/23 Cholecalciferol [Vitamin D3 (25 25 mcg PO DAILY 05/26/23 08/27/23 Mcg = 1000 Iu)] Melatonin 5 mg PO HS 05/26/23 08/27/23 Albuterol Inhaler [Ventolin Hfa 1 - 2 puff INHALATION RT-QID PRN 08/20/23 08/27/23 Inhaler] Albuterol Nebulized [Ventolin 2.5 mg INHALATION RT-Q6H PRN 08/20/23 08/27/23 Nebulized] Budesonide/Formoterol Fumarate 2 puff INHALATION RT-DAILY 08/20/23 08/27/23 [Symbicort 80-4.5 Mcg Inhaler] Cyclobenzaprine [Flexeril] 10 mg PO TID PRN 08/20/23 08/27/23 Diphenoxylate HCl/Atropine 1 tab PO QID PRN 08/20/23 08/27/23 [Lomotil 2.5-0.025 mg Tablet] Esomeprazole Magnesium [NexIUM] 40 mg PO DAILY 08/20/23 08/27/23 Nitroglycerin Sl Tabs [Nitrostat] 0.4 mg SL Q5M PRN 08/20/23 08/27/23 Promethazine HCl 12.5 mg PO QID PRN 08/20/23 08/27/23 metFORMIN HCL ER [Glucophage XR] 1,000 mg PO BID 08/20/23 08/27/23 traZODone HCL 150 mg PO HS 08/27/23 08/27/23 Previous Rx's Medication Instructions Recorded Acetaminophen Tab [Tylenol] 650 mg PO Q6HR PRN tab 08/23/23 Atorvastatin [Lipitor] 20 mg PO HS #30 tab 08/23/23 Ondansetron Odt [Zofran Odt] 4 mg PO Q8HR PRN #10 tab 08/23/23 Allergies Allergy/AdvReac Type Severity Reaction Status Date / Time dicyclomine HCl [From Bentyl] Allergy Unknown Dyspnea Verified 08/27/23 13:02 latex Allergy Unknown Rash/Hives Verified 08/27/23 13:02 Benzoate Analogues Allergy Unknown Verified 08/27/23 13:02 nitrofurantoin Allergy Unknown Verified 08/27/23 13:02 [From Macrobid] Penicillins Allergy "[place] Verified 08/27/23 13:02 funny" adhesive AdvReac Unknown Itching Verified 08/27/23 13:02 ciprofloxacin AdvReac Unknown Nausea Verified 08/27/23 13:02 Macrolide Antibiotics AdvReac Unknown Nausea Verified 08/27/23 13:02 sulfamethoxazole AdvReac Unknown Unknown Verified 08/27/23 13:02 [From Bactrim] trimethoprim [From Bactrim] AdvReac Unknown Unknown Verified 08/27/23 13:02 Review of Systems ROS Other: All systems not noted in ROS Statement are negative. <Attila Thibodeaux - Last Filed: 08/27/23 09:48> ROS Other: All systems not noted in ROS Statement are negative. Constitutional: Denies: fever Eyes: Denies: eye pain Respiratory: Reports: as per HPI, cough, dyspnea Endocrine: Denies: fatigue Gastrointestinal: Reports: nausea, vomiting. Denies: abdominal pain <Nash Cedillo - Last Filed: 08/27/23 13:56> ROS Statement: Those systems with pertinent positive or pertinent negative responses have been documented in the HPI. Past Medical History Past Medical History: Asthma, Chest Pain / Angina, COPD, CVA/TIA, Diabetes Mellitus, GERD/Reflux, Hearing Disorder / Deafness, Hyperlipidemia, Hypertension, Liver Disease, Osteoarthritis (OA), Pneumonia, Seizure Disorder, Sleep Apnea/CPAP/BIPAP Additional Past Medical History / Comment(s): states CVA at 35 yrs old, no weakness @ this time. states seizure at 35 yrs old., DDD- back & neck pain., carpal tunnel syndrome., hx. of cyst on kidney, uses cpap., states having a bdominal pain with diarrhea and nausea ., Lives in a prison with 2 other people. Has a caregiver.n Has [employer] public guardian. History of Any Multi-Drug Resistant Organisms: None Reported Past Surgical History: Heart Catheterization, Orthopedic Surgery Additional Past Surgical History / Comment(s): Cysts removed, left thumb surgery, colonoscopy 08/24/2019. Skin tags removed from both eyes. Past Anesthesia/Blood Transfusion Reactions: Motion Sickness, Postoperative Nausea & Vomiting (PONV) Past Psychological History: Anxiety, Bipolar, Depression, Schizophrenia Smoking Status: Current every day smoker Past Alcohol Use History: Rare Past Drug Use History: None Reported - Past Family History Brother(s) Family Medical History: Diabetes Mellitus Additional Family Medical History / Comment(s): Patient has 2 brothers. One from complications from diabetes. The second is alive with diabetes. Sister(s) Family Medical History: Cancer Additional Family Medical History / Comment(s): Patient has one sister with breast cancer. Patient does not have any children. Father Family Medical History: Cancer Additional Family Medical History / Comment(s): Father in his 40s or 50s from colon cancer. Mother Family Medical History: Cancer Additional Family Medical History / Comment(s): Mother at age 68 from lung cancer. <Attila Thibodeaux M - Last Filed: 08/27/23 09:48> General Exam Limitations: no limitations <Attila Thibodeaux M - Last Filed: 08/27/23 09:48> Limitations: no limitations General appearance: alert, in no apparent distress Head exam: Present: normocephalic Eye exam: Present: normal appearance Neck exam: Present: normal inspection Respiratory exam: Present: normal lung sounds bilaterally. Absent: respiratory distress Cardiovascular Exam: Present: regular rate, normal rhythm GI/Abdominal exam: Present: soft, normal bowel sounds. Absent: distended, tenderness, guarding, rebound, rigid, pulsatile mass Extremities exam: Present: normal inspection. Absent: calf tenderness Neurological exam: Present: alert Psychiatric exam: Present: normal affect, normal mood Skin exam: Present: normal color <Nash Cedillo - Last Filed: 08/27/23 13:56> - General Exam Comments Initial Comments: Visual Physical Exam Vital signs reviewed General: Well-appearing, nontoxic, no acute distress. Head: Normocephalic, atraumatic Eyes: PERRLA, EOMI ENT: Airway patent Chest: Nonlabored breathing Skin: No visual rash, normal skin tone Neuro: Alert and oriented 3 Musculoskeletal: No gross abnormalities (Attila Thibodeaux) Course Vital Signs 08/27/23 09:17 Temperature 98.2 F Pulse Rate 71 Respiratory 20 Rate Blood Pressure 115/77 O2 Sat by Pulse 100 Oximetry Medical Decision Making <Attila Thibodeaux - Last Filed: 08/27/23 09:48> - Lab Data Result diagrams: 08/27/23 09:36 08/27/23 09:36 <Nash Cedillo - Last Filed: 08/27/23 13:56> - Medical Decision Making I completed the quick note portion of this chart signed Attila Thibodeaux PA-C (Attila Thibodeaux) Was pt. sent in by a medical professional or institution ([facility], [facility], urgent care, hospital, or intermediate...) When possible be specific @ -No Did you speak to anyone other than the patient for history (EMS, parent, family, police, friend...)? What history was obtained from this source @ -No Did you review nursing and triage notes (agree or disagree)? Why? @ -I reviewed and agree with nursing and triage notes Were old charts reviewed (outside hosp., previous admission, EMS record, old EKG, old radiological studies, urgent care reports/EKG's, intermediate records)? Report findings @ -Previous x-ray reviewed Differential Diagnosis (chest pain, altered mental status, abdominal pain women, abdominal pain men, vaginal bleeding, weakness, fever, dyspnea, syncope, headache, dizziness, GI bleed, back pain, seizure, CVA, palpatations, mental health, musculoskeletal)? @ -Differential Dyspnea: Coronary syndrome, arrhythmia, tamponade, asthma, COPD, pulmonary embolism, pneumonia, pneumothorax, pulmonary effusion, anaphylaxis, diabetic ketoacidosis, flailed chest, pulmonary contusion, diaphragmatic rupture, anemia, neuromuscular, this is not meant to be an all-inclusive list. EKG interpreted by me (3pts min.). @ -As above X-rays interpreted by me (1pt min.). @ -Chest x-ray shows no acute process CT interpreted by me (1pt min.). @ -CT scan shows no acute process U/S interpreted by me (1pt. min.). @ -None done What testing was considered but not performed or refused? (CT, X-rays, U/S, labs)? Why? @ -None What meds were considered but not given or refused? Why? @ -None Did you discuss the management of the patient with other professionals (professionals i.e. , PA, REEL ASSEMBLER, lab, RT, psych nurse, director social service, dental office assistant, teacher, commissioned defence force officer, case therapist)? Give summary @ -No Was smoking cessation discussed for >3mins.? @ -No Was critical care preformed (if so, how long)? @ -No Were there social determinants of health that impacted care today? How? (Homelessness, low income, unemployed, alcoholism, drug addiction, transportation, low edu. Level, literacy, decrease access to med. care, assisted, rehab)? @ -No Was there de-escalation of care discussed even if they declined (Discuss DNR or withdrawal of care, Hospice)? DNR status @ -No What co-morbidities impacted this encounter? (DM, HTN, Smoking, COPD, CAD, Cancer, CVA, ARF, Chemo, Hep., AIDS, mental health diagnosis, sleep apnea, morbid obesity)? @ -None Was patient admitted / discharged? Hospital course, mention meds given and route, prescriptions, significant lab abnormalities, going to OR and other perti nent info. @ -Patient reevaluated and updated Undiagnosed new problem with uncertain prognosis? @ -No Drug Therapy requiring intensive monitoring for toxicity (Heparin, Nitro, Insulin, Cardizem)? @ -No Were any procedures done? @ -No Diagnosis/symptom? @ -Vomiting Acute, or Chronic, or Acute on Chronic? @ -Acute Uncomplicated (without systemic symptoms) or Complicated (systemic symptoms)? @ -Default Side effects of treatment? @ -No Exacerbation, Progression, or Severe Exacerbation? @ -No Poses a threat to life or bodily function? How? (Chest pain, [place], [place], pneumonia, PE, COPD, DKA, ARF, appy, cholecystitis, CVA, Diverticulitis, Homicidal, Suicidal, threat to staff... and all critical care pts) @ -No (Nash Cedillo) - Lab Data Lab Results 08/27/23 08/27/23 08/27/23 Range/Units 09:36 09:36 09:36 WBC 7.3 (3.8-10.6) k/uL RBC 4.75 (4.30-5.90) m/uL Hgb 16.0 (13.0-17.5) gm/dL Hct 42.7 (39.0-53.0) % MCV 89.9 (80.0-100.0) fL MCH 33.7 (25.0-35.0) pg MCHC 37.5 H (31.0-37.0) g/dL RDW 13.2 (11.5-15.5) % Plt Count 192 (150-450) k/uL MPV 7.8 Neutrophils % 73 % Lymphocytes % 16 % Monocytes % 7 % Eosinophils % 3 % Basophils % 0 % Neutrophils # 5.4 (1.3-7.7) k/uL Lymphocytes # 1.1 (1.0-4.8) k/uL Monocytes # 0.5 (0-1.0) k/uL Eosinophils # 0.2 (0-0.7) k/uL Basophils # 0.0 (0-0.2) k/uL PT 10.3 (10.0-12.5) sec INR 0.9 (<1.2) APTT 24.1 (22.0-30.0) sec D-Dimer 0.96 H (<0.60) mg/L FEU Sodium 142 (137-145) mmol/L Potassium 4.4 (3.5-5.1) mmol/L Chloride 109 H (98-107) mmol/L Carbon Dioxide 26 (22-30) mmol/L Anion Gap 7 mmol/L BUN 12 (9-20) mg/dL Creatinine 0.67 (0.66-1.25) mg/dL Est GFR (CKD-EPI)AfAm >90 (>60 ml/min/1.73 sqM) Est GFR (CKD-EPI)NonAf >90 (>60 ml/min/1.73 sqM) Glucose 109 H (74-99) mg/dL Calcium 9.4 (8.4-10.2) mg/dL Magnesium 1.7 (1.6-2.3) mg/dL Total Bilirubin 0.5 (0.2-1.3) mg/dL AST 23 (17-59) U/L ALT 31 (4-49) U/L Alkaline Phosphatase 66 (38-126) U/L Troponin I (0.000-0.034) ng/mL Total Protein 6.2 L (6.3-8.2) g/dL Albumin 4.1 (3.5-5.0) g/dL Influenza Type A (PCR) (Not Detectd) Influenza Type B (PCR) (Not Detectd) RSV (PCR) (Not Detectd) SARS-CoV-2 (PCR) (Not Detectd) 08/27/23 08/27/23 Range/Units 09:36 09:36 WBC (3.8-10.6) k/uL RBC (4.30-5.90) m/uL Hgb (13.0-17.5) gm/dL Hct (39.0-53.0) % MCV (80.0-100.0) fL MCH (25.0-35.0) pg MCHC (31.0-37.0) g/dL RDW (11.5-15.5) % Plt Count (150-450) k/uL MPV Neutrophils % % Lymphocytes % % Monocytes % % Eosinophils % % Basophils % % Neutrophils # (1.3-7.7) k/uL Lymphocytes # (1.0-4.8) k/uL Monocytes # (0-1.0) k/uL Eosinophils # (0-0.7) k/uL Basophils # (0-0.2) k/uL PT (10.0-12.5) sec INR (<1.2) APTT (22.0-30.0) sec D-Dimer (<0.60) mg/L FEU Sodium (137-145) mmol/L Potassium (3.5-5.1) mmol/L Chloride (98-107) mmol/L Carbon Dioxide (22-30) mmol/L Anion Gap mmol/L BUN (9-20) mg/dL Creatinine (0.66-1.25) mg/dL Est GFR (CKD-EPI)AfAm (>60 ml/min/1.73 sqM) Est GFR (CKD-EPI)NonAf (>60 ml/min/1.73 sqM) Glucose (74-99) mg/dL Calcium (8.4-10.2) mg/dL Magnesium (1.6-2.3) mg/dL Total Bilirubin (0.2-1.3) mg/dL AST (17-59) U/L ALT (4-49) U/L Alkaline Phosphatase (38-126) U/L Troponin I <0.012 (0.000-0.034) ng/mL Total Protein (6.3-8.2) g/dL Albumin (3.5-5.0) g/dL Influenza Type A (PCR) Not Detected (Not Detectd) Influenza Type B (PCR) Not Detected (Not Detectd) RSV (PCR) Not Detected (Not Detectd) SARS-CoV-2 (PCR) Not Detected (Not Detectd) Disposition <Attila Thibodeaux - Last Filed: 08/27/23 09:48> Is patient prescribed a controlled substance at d/c from ED?: No Time of Disposition: 13:56 <Nash Cedillo - Last Filed: 08/27/23 13:56> Clinical Impression: Vomiting Disposition: HOME SELF-CARE Condition: Stable Instructions (If sedation given, give patient instructions): Acute Nausea and Vomiting (ED) Additional Instructions: Please do follow-up with your primary care physician in the next 1 or 2 days for recheck. Return for fevers, difficulty breathing, not tolerating fluids, worsening or changing symptoms, abdominal pain or other concerns. Referrals: Ramya Saul MD [Primary Care Provider] - 1-2 days
[2023-08-27 09:58] LABS: Basophils % (A) 0 %; Eosinophils # (A) 0.2 k/uL (0-0.7); Eosinophils % (A) 3 %; HCT 42.7 % (39.0-53.0); Lymphocytes # (A) 1.1 k/uL (1.0-4.8); Lymphocytes % (A) 16 %; MCH 33.7 pg (25.0-35.0); MCHC 37.5 g/dL (31.0-37.0); MCV 89.9 fL (80.0-100.0); Mean Platelet Volume 7.8; Monocytes # (A) 0.5 k/uL (0-1.0); Monocytes % (A) 7 %; Neutrophils # (A) 5.4 k/uL (1.3-7.7); Neutrophils % (A) 73 %; Platelet Count 192 k/uL (150-450); RBC 4.75 m/uL (4.30-5.90); RDW 13.2 % (11.5-15.5); WBC 7.3 k/uL (3.8-10.6)
[2023-08-27 10:15] LABS: ALT 31 U/L (4-49); AST 23 U/L (17-59); African American GFR (CKD) >90 (>60 ml/min/1.73 sqM); Albumin 4.1 g/dL (3.5-5.0); Alkaline Phosphatase 66 U/L (38-126); Anion Gap 7 mmol/L; Blood Urea Nitrogen 12 mg/dL (9-20); Calcium 9.4 mg/dL (8.4-10.2); Carbon Dioxide 26 mmol/L (22-30); Chloride 109 mmol/L (98-107); Glucose 109 mg/dL (74-99); Magnesium 1.7 mg/dL (1.6-2.3); Non-African American GFR(CKD) >90 (>60 ml/min/1.73 sqM); Potassium 4.4 mmol/L (3.5-5.1); Sodium 142 mmol/L (137-145); Total Bilirubin 0.5 mg/dL (0.2-1.3); Total Protein 6.2 g/dL (6.3-8.2)
[2023-08-27 10:17] LABS: INR 0.9 (<1.2); Partial Thromboplastin Time 24.1 sec (22.0-30.0); Prothrombin Time 10.3 sec (10.0-12.5)
[2023-08-27] MEDS: ONDANSETRON 4 MG/2 ML VIAL IVP STA (12:28)
[2023-08-27] MEDS: FAMOTIDINE 20 MG/2 ML VIAL IV STA (12:30)
--- NOTE | 2023-08-27 13:33 | CT ---
EXAMINATION TYPE: CT angio chest DATE OF EXAM: 08/27/2023 COMPARISON: Radiograph same day HISTORY: 53-year-old male with shortness of breath, Dyspnea TECHNIQUE: Contiguous axial scanning of the chest after the administration of 100 ml mL of Isovue 300 . Coronal/sagittal MIP reconstructions performed. CT DLP: 289.7mGycm. Automatic exposure control utilized for a dose reduction. FINDINGS: The heart is normal size with trace anterior pericardial effusion measuring 6 mm thick. No flattening of the interventricular septum or reflux of contrast into the hepatic veins. Ectatic aortic root at 3.7 cm. There is conventional vessel branching anatomy. No thoracic lymphadenopathy by CT size criteria. Moderate bilateral gynecomastia incidentally noted. Satisfactory opacification of the pulmonary arterial system without evidence for pulmonary embolus. Mild underlying emphysematous change. Mild diffuse bronchial wall thickening. No consolidation or ple ural effusion. Mild dependent atelectasis posterior left lung base. Some minimal adherent retained strain the mucoid secretions in the trachea and mainstem bronchi. Visualized upper abdomen shows a few calcified granulomas in the spleen as well as a 6.1 cm thinly pe ripherally calcified pseudocyst anteriorly likely relating to sequela of remote injury. Bones: Accentuated midthoracic kyphosis with moderate degenerative disc disease mid to lower thoracic spine. IMPRESSION: 1. No evidence for pulmonary embolus. 2. COPD with mild emphysema.
[2023-08-27 14:44] VITALS: BP 120/68; PULSE 72; RESP 18; TEMP 98
== END 2023-08-27 14:29 | disposition home or self-care (01) ==
LOC: EC 09:01
DX: R11.10 Vomiting, unspecified (principal); J43.9 Emphysema, unspecified; E11.9 Type 2 diabetes mellitus without complications; K21.9 Gastro-esophageal reflux disease without esophagitis; I10 Essential (primary) hypertension; M19.90 Unspecified osteoarthritis, unspecified site; G47.30 Sleep apnea, unspecified; F41.9 Anxiety disorder, unspecified; F31.9 Bipolar disorder, unspecified; F17.200 Nicotine dependence, unspecified, uncomplicated; Z79.899 Other long term (current) drug therapy; Z88.1 Allergy status to other antibiotic agents; Z88.2 Allergy status to sulfonamides; Z88.0 Allergy status to penicillin; Z91.09 Other allergy status, other than to drugs and biological substances; Z91.040 Latex allergy status; Z88.8 Allergy status to other drugs, medicaments and biological substances; Z79.51 Long term (current) use of inhaled steroids; Z79.1 Long term (current) use of non-steroidal anti-inflammatories (NSAID); Z20.822 Contact with and (suspected) exposure to COVID-19
CPT/HCPCS: 99285; 96374; 96375; 36415; 85379; 80053; 83735; 84484; 85025; 85610; 85730; 87636; 71046; 71275; J2405; J3490; Q9967

== ENCOUNTER 2023-09-12 19:48 | Emergency (ER) | payer MEDICARE, OTHER ==
--- NOTE | 2023-09-12 20:23 | ED ---
General Adult HPI - General Chief complaint: Psychiatric Symptoms Stated complaint: LE Petition Time Seen by Provider: 09/12/23 20:02 Source: patient, RN notes reviewed, old records reviewed Mode of arrival: ambulatory Limitations: no limitations - History of Present Illness Initial comments: Patient is a 53-year-old male who presents emergency department complaining of suicidal ideations with a plan to overdose on his medications. States he has not attempted however has been having the increased thoughts of this over the last week. Has a psychiatric history. States he has been compliant with his normal medications but has not seen a therapist in quite some time. Denies any physical complaints. Denies homicidal ideations, times complaints. Denies any new hallucinations but does have chronic auditory hallucinations telling him to kill himself. Presents for further evaluation at this time. Denies any alcohol or drug use. Patient was brought in by police and petitioned. - Related Data Home Medications Medication Instructions Recorded Confirmed Aspirin EC [Ecotrin Low Dose] 81 mg PO DAILY 07/09/20 08/27/23 ARIPiprazole [Abilify] 15 mg PO DAILY 05/26/23 08/27/23 Cholecalciferol [Vitamin D3 (25 25 mcg PO DAILY 05/26/23 08/27/23 Mcg = 1000 Iu)] Melatonin 5 mg PO HS 05/26/23 08/27/23 Albuterol Inhaler [Ventolin Hfa 1 - 2 puff INHALATION RT-QID PRN 08/20/23 08/27/23 Inhaler] Albuterol Nebulized [Ventolin 2.5 mg INHALATION RT-Q6H PRN 08/20/23 08/27/23 Nebulized] Budesonide/Formoterol Fumarate 2 puff INHALATION RT-DAILY 08/20/23 08/27/23 [Symbicort 80-4.5 Mcg Inhaler] Cyclobenzaprine [Flexeril] 10 mg PO TID PRN 08/20/23 08/27/23 Diphenoxylate HCl/Atropine 1 tab PO QID PRN 08/20/23 08/27/23 [Lomotil 2.5-0.025 mg Tablet] Esomeprazole Magnesium [NexIUM] 40 mg PO DAILY 08/20/23 08/27/23 Nitroglycerin Sl Tabs [Nitrostat] 0.4 mg SL Q5M PRN 08/20/23 08/27/23 Promethazine HCl 12.5 mg PO QID PRN 08/20/23 08/27/23 metFORMIN HCL ER [Glucophage XR] 1,000 mg PO BID 08/20/23 08/27/23 traZODone HCL 150 mg PO HS 08/27/23 08/27/23 Previous Rx's Medication Instructions Recorded Acetaminophen Tab [Tylenol] 650 mg PO Q6HR PRN tab 08/23/23 Atorvastatin [Lipitor] 20 mg PO HS #30 tab 08/23/23 Ondansetron Odt [Zofran Odt] 4 mg PO Q8HR PRN #10 tab 08/23/23 Allergies Allergy/AdvReac Type Severity Reaction Status Date / Time dicyclomine HCl [From Bentyl] Allergy Unknown Dyspnea Verified 09/12/23 20:03 latex Allergy Unknown Rash/Hives Verified 09/12/23 20:03 Benzoate Analogues Allergy Unknown Verified 09/12/23 20:03 nitrofurantoin Allergy Unknown Verified 09/12/23 20:03 [From Macrobid] Penicillins Allergy "Labolt Verified 09/12/23 20:03 funny" adhesive AdvReac Unknown Itching Verified 09/12/23 20:03 ciprofloxacin AdvReac Unknown Nausea Verified 09/12/23 20:03 Macrolide Antibiotics AdvReac Unknown Nausea Verified 09/12/23 20:03 sulfamethoxazole AdvReac Unknown Unknown Verified 09/12/23 20:03 [From Bactrim] trimethoprim [From Bactrim] AdvReac Unknown Unknown Verified 09/12/23 20:03 Review of Systems ROS Statement: Those systems with pertinent positive or pertinent negative responses have been documented in the HPI. Review of Systems: CONST: Denies fever EYES: Denies blurry vision ENT: Denies nasal congestion C/V: Denies Chest pain RESP: Denies shortness of breath GI: Denies abdominal pain : Denies dysuria SKIN: Denies rash. MSK: Denies joint pain. NEURO: Denies headache ROS Other: All systems not noted in ROS Statement are negative. Past Medical History Past Medical History: Asthma, Chest Pain / Angina, COPD, CVA/TIA, Diabetes Mellitus, GERD/Reflux, Hearing Disorder / Deafness, Hyperlipidemia, Hypertension, Liver Disease, Osteoarthritis (OA), Pneumonia, Seizure Disorder, Sleep Apnea/CPAP/BIPAP Additional Past Medical History / Comment(s): states CVA at 35 yrs old, no weakness @ this time. states seizure at 35 yrs old., DDD- back & neck pain., carpal tunnel syndrome., hx. of cyst on kidney, uses cpap., states having abdominal pain with diarrhea and nausea ., Lives in a prison with 2 other people. Has a caregiver.n Has [employer] public guardian. History of Any Multi-Drug Resistant Organisms: None Reported Past Surgical History: Heart Catheterization, Orthopedic Surgery Additional Past Surgical History / Comment(s): Cysts removed, left thumb surgery, colonoscopy 08/24/2019. Skin tags removed from both eyes. Past Anesthesia/Blood Transfusion Reactions: Motion Sickness, Postoperative Nausea & Vomiting (PONV) Past Psychological History: Anxiety, Bipolar, Depression, Schizophrenia Smoking Status: Current every day smoker Past Alcohol Use History: Rare Past Drug Use History: None Reported - Past Family History Brother(s) Family Medical History: Diabetes Mellitus Additional Family Medical History / Comment(s): Patient has 2 brothers. One from complications from diabetes. The second is alive with diabetes. Sister(s) Family Medical History: Cancer Additional Family Medical History / Comment(s): Patient has one sister with breast cancer. Patient does not have any children. Father Family Medical History: Cancer Additional Family Medical History / Comment(s): Father in his 40s or 50s from colon cancer. Mother Family Medical History: Cancer Additional Family Medical History / Comment(s): Mother at age 68 from lung cancer. General Exam - General Exam Comments Initial Comments: General: Appears in no acute distress. HEAD: Normal with no signs of head trauma. EYES: PERRLA, EOMI, conjunctiva normal, no discharge. ENT: Hearing grossly intact, normal oropharynx. RESPIRATORY: Clear breath sounds bilaterally. No wheezes, rales, or rhonchi. C/V: Regular rate and rhythm. S1 and S2 auscultated, no edema, peripheral pulses 2+ and intact throughout ABD: Abd is soft, nontender, nondistended EXT: Normal range of motion, no obvious deformity SKIN: No rashes or lesions observed on exposed skin. NEURO: Alert and oriented x 4. Limitations: no limitations Course Vital Signs 09/12/23 19:56 Temperature 98.8 F Pulse Rate 69 Respiratory 18 Rate Blood Pressure 146/91 O2 Sat by Pulse 98 Oximetry Medical Decision Making - Medical Decision Making Was pt. sent in by a medical professional or institution ([facility], [employer], urgent care, hospital, or penitentiary...) When possible be specific @ -No Did you speak to anyone other than the patient for history (EMS, parent, family, police, friend...)? What history was obtained from this source @ -Spoke with police who petitioned the patient and provided details regarding the petition. Did you review nursing and triage notes (agree or disagree)? Why? @ -I reviewed and agree with nursing and triage notes Were old charts reviewed (outside hosp., previous admission, EMS record, old EKG, old radiological studies, urgent care reports/EKG's, penitentiary records)? Report findings @ -Old charts reviewed Differential Diagnosis (chest pain, altered mental status, abdominal pain women, abdominal pain men, vaginal bleeding, weakness, fever, dyspnea, syncope, headache, dizziness, GI bleed, back pain, seizure, CVA, palpatations, mental health, musculoskeletal)? @ -Differential Mental Health Depression, anxiety, bipolar, psychosis, schizophrenia, borderline personality, situational depression, adjustment disorder, behavioral disorder, brain tumor, malingering, substance abuse, encephalopathy, medication reaction, dementia, hypothyroidism, degenerative neurologic disorder, lupus.... This is not meant to be all-inclusive list EKG interpreted by me (3pts min.). @ -As above X-rays interpreted by me (1pt min.). @ -None done CT interpreted by me (1pt min.). @ -None done U/S interpreted by me (1pt. min.). @ -None done What testing was considered but not performed or refused? (CT, X-rays, U/S, labs)? Why? @ -None What meds were considered but not given or refused? Why? @ -None Did you discuss the management of the patient with other professionals (professionals i.e. [facility], [employer], lab, RT, psych nurse, administrator social welfare, netezza developer, teacher, parking control officer, telehealth case manager)? Give summary @ -EPS Perla notified of the consult. Was smoking cessation discussed for >3mins.? @ -No Was critical care preformed (if so, how long)? @ -No Were there social determinants of health that impacted care today? How? (Homelessness, low income, unemployed, alcoholism, drug addiction, transportation, low edu. Level, literacy, decrease access to med. care, group home, rehab)? @ -No Was there de-escalation of care discussed even if they declined (Discuss DNR or withdrawal of care, Hospice)? DNR status @ -No What co-morbidities impacted this encounter? (DM, HTN, Smoking, COPD, CAD, Cancer, CVA, ARF, Chemo, Hep., AIDS, mental health diagnosis, sleep apnea, m orbid obesity)? @ -None Was patient admitted / discharged? Hospital course, mention meds given and route, prescriptions, significant lab abnormalities, going to OR and other pertinent info. @ -Based on the patient's presentation and physical exam, presents for psychiatric evaluation. Was petition. Due to his age, will obtain screening EKG and basic blood work. Patient placed in green scrubs. Sitter ordered. Vital signs are within acceptable limits. Suicide precautions placed. Patient's laboratory studies within acceptable limits. EKG within acceptable limits. At this time patient is medically cleared for evaluation by psychiatry. Disposition is pending psychiatric evaluation. EPS Perla notified of the consult. Evaluated by psychiatry. Cleared for discharge home at this time. Given safety plan. Undiagnosed new problem with uncertain prognosis? @ -No Drug Therapy requiring intensive monitoring for toxicity (Heparin, Nitro, Insulin, Cardizem)? @ -No Were any procedures done? @ -No Diagnosis/symptom? @ -Encounter for psychiatric evaluation Acute, or Chronic, or Acute on Chronic? @ -Acute on chronic Uncomplicated (without systemic symptoms) or Complicated (systemic symptoms)? @ -Complicated Side effects of treatment? @ -None Exacerbation, Progression, or Severe Exacerbation] @ -No Poses a threat to life or bodily function? @ -Unlikely - Lab Data Result diagrams: 09/12/23 20:40 09/12/23 20:40 Lab Results 09/12/23 09/12/23 Range/Units 20:40 20:40 WBC 6.6 (3.8-10.6) k/uL RBC 4.51 (4.30-5.90) m/uL Hgb 14.1 (13.0-17.5) gm/dL Hct 39.6 (39.0-53.0) % MCV 87.7 (80.0-100.0) fL MCH 31.3 (25.0-35.0) pg MCHC 35.7 (31.0-37.0) g/dL RDW 13.3 (11.5-15.5) % Plt Count 179 (150-450) k/uL MPV 7.8 Neutrophils % 67 % Lymphocytes % 21 % Monocytes % 6 % Eosinophils % 4 % Basophils % 0 % Neutrophils # 4.4 (1.3-7.7) k/uL Lymphocytes # 1.4 (1.0-4.8) k/uL Monocytes # 0.4 (0-1.0) k/uL Eosinophils # 0.3 (0-0.7) k/uL Basophils # 0.0 (0-0.2) k/uL Hyperchromasia Slight Sodium 139 (137-145) mmol/L Potassium 3.5 (3.5-5.1) mmol/L Chloride 109 H (98-107) mmol/L Carbon Dioxide 23 (22-30) mmol/L Anion Gap 7 mmol/L BUN 15 (9-20) mg/dL Creatinine 0.60 L (0.66-1.25) mg/dL Est GFR (CKD-EPI)AfAm >90 (>60 ml/min/1.73 sqM) Est GFR (CKD-EPI)NonAf >90 (>60 ml/min/1.73 sqM) Glucose 193 H (74-99) mg/dL Calcium 9.1 (8.4-10.2) mg/dL Serum Alcohol <10 mg/dL - EKG Data -: EKG Interpreted by Me EKG Comments: 12-lead Electrocardiogram Interpretation Note EKG was reviewed and interpreted by myself. 12-lead ECG performed at 2024 is interpreted by me as revealing normal sinus rhythm with incomplete right bundle branch block at a rate of 64 beats per minute. Borderline left axis deviation. [place] interval is 157 ms, QRS duration is 110 ms. QTc is 404 ms.. There were no ST or T wave abnormalities to suggest myocardial ischemia or injury. R wave progression across the precordium was satisfactory. By my interpretation this EKG is non-diagnostic for acute ischemia. Disposition Clinical Impression: Encounter for psychiatric assessment Disposition: HOME SELF-CARE Condition: Good Additional Instructions: follow safety plan Is patient prescribed a controlled substance at d/c from ED?: No Referrals: Ramya Saul MD [Primary Care Provider] - 1-2 days Time of Disposition: 22:33
[2023-09-12 20:27] VITALS: BP 146/91; PULSE 69; RESP 18; TEMP 98.8
[2023-09-12] MEDS: LORazepam 1 MG TAB PO STA (20:35)
[2023-09-12 21:17] LABS: Basophils % (A) 0 %; Eosinophils # (A) 0.3 k/uL (0-0.7); Eosinophils % (A) 4 %; HCT 39.6 % (39.0-53.0); HGB 14.1 gm/dL (13.0-17.5); Hyperchromasia Slight; Lymphocytes # (A) 1.4 k/uL (1.0-4.8); Lymphocytes % (A) 21 %; MCH 31.3 pg (25.0-35.0); MCHC 35.7 g/dL (31.0-37.0); MCV 87.7 fL (80.0-100.0); Mean Platelet Volume 7.8; Monocytes # (A) 0.4 k/uL (0-1.0); Monocytes % (A) 6 %; Neutrophils # (A) 4.4 k/uL (1.3-7.7); Neutrophils % (A) 67 %; Platelet Count 179 k/uL (150-450); RBC 4.51 m/uL (4.30-5.90); RDW 13.3 % (11.5-15.5); WBC 6.6 k/uL (3.8-10.6)
[2023-09-12 21:52] LABS: African American GFR (CKD) >90 (>60 ml/min/1.73 sqM); Alcohol <10 mg/dL; Anion Gap 7 mmol/L; Blood Urea Nitrogen 15 mg/dL (9-20); Calcium 9.1 mg/dL (8.4-10.2); Carbon Dioxide 23 mmol/L (22-30); Chloride 109 mmol/L (98-107); Glucose 193 mg/dL (74-99); Non-African American GFR(CKD) >90 (>60 ml/min/1.73 sqM); Potassium 3.5 mmol/L (3.5-5.1); Sodium 139 mmol/L (137-145)
== END 2023-09-12 22:40 | disposition home or self-care (01) ==
LOC: EC 19:48
DX: Z00.8 Encounter for other general examination (principal); J44.89 Other specified chronic obstructive pulmonary disease; E11.9 Type 2 diabetes mellitus without complications; E78.5 Hyperlipidemia, unspecified; F31.9 Bipolar disorder, unspecified; F41.9 Anxiety disorder, unspecified; G47.30 Sleep apnea, unspecified; K21.9 Gastro-esophageal reflux disease without esophagitis; M19.90 Unspecified osteoarthritis, unspecified site; F17.200 Nicotine dependence, unspecified, uncomplicated; Z79.51 Long term (current) use of inhaled steroids; Z79.82 Long term (current) use of aspirin; Z79.84 Long term (current) use of oral hypoglycemic drugs; Z79.899 Other long term (current) drug therapy; Z88.0 Allergy status to penicillin; Z88.2 Allergy status to sulfonamides; Z88.1 Allergy status to other antibiotic agents; Z91.040 Latex allergy status; Z91.041 Radiographic dye allergy status; Z88.8 Allergy status to other drugs, medicaments and biological substances; Z86.73 Personal history of transient ischemic attack (TIA), and cerebral infarction without residual deficits
CPT/HCPCS: 36415; 80048; 80320; 82075; 85025; 93005; 99285

== ENCOUNTER 2023-10-06 10:05 | Emergency (ER) | payer MEDICARE, OTHER ==
--- NOTE | 2023-10-06 10:28 | ED ---
Abdominal Pain HPI - General Chief Complaint: Abdominal Pain Stated Complaint: NVD Time Seen by Provider: 10/06/23 10:23 Source: patient, RN notes reviewed Mode of arrival: ambulatory Limitations: no limitations - History of Present Illness Initial Comments: This is a 53-year-old male presents to the ED with chief complaint of generalized abdominal pain and fatigue, nausea, dyspnea on exertion, cough, and congestion over the last week. Patient states that he has had nausea with no episodes of vomiting or hememesis. Is unaware if he has been experiencing fevers, however states he has felt warm". Patient states that he went on Wednesday to [facility] where they gave him antinausea medication and was discharged home. Patient denies hematochezia, diarrhea, vomiting, dysuria, flank or back pain. States that he has been experiencing ongoing dyspnea on exertion but denies chest pain or pressure, palpitations, dizziness, syncope. States this SOB is the same as it has been in the past. Patient is a smoker and states he has been trying to quit. - Related Data Home Medications Medication Instructions Recorded Confirmed Aspirin EC [Ecotrin Low Dose] 81 mg PO DAILY 07/09/20 10/06/23 ARIPiprazole [Abilify] 15 mg PO DAILY 05/26/23 10/06/23 Cholecalciferol [Vitamin D3 (25 25 mcg PO DAILY 05/26/23 10/06/23 Mcg = 1000 Iu)] Melatonin 5 mg PO HS 05/26/23 10/06/23 Albuterol Inhaler [Ventolin Hfa 1 - 2 puff INHALATION RT-QID PRN 08/20/23 10/06/23 Inhaler] Albuterol Nebulized [Ventolin 2.5 mg INHALATION RT-Q6H PRN 08/20/23 10/06/23 Nebulized] Esomeprazole Magnesium [NexIUM] 40 mg PO DAILY 08/20/23 10/06/23 Nitroglycerin Sl Tabs [Nitrostat] 0.4 mg SL Q5M PRN 08/20/23 10/06/23 Budesonide/Formoterol Fumarate 2 puff INHALATION RT-BID 10/06/23 10/06/23 [Symbicort 160-4.5 Mcg Inhaler] Cyclobenzaprine [Flexeril] 5 mg PO BID PRN 10/06/23 10/06/23 Dicyclomine [Bentyl] 10 mg PO TID 10/06/23 10/06/23 Hydrocortisone Cream 1 applic TOPICAL BID 10/06/23 10/06/23 [Hydrocortisone 2.5% Cream] Ibuprofen [Motrin] 600 mg PO Q8HR 10/06/23 10/06/23 Montelukast [Singulair] 10 mg PO DAILY 10/06/23 10/06/23 Pantoprazole [Protonix] 40 mg PO DAILY 10/06/23 10/06/23 Rosuvastatin [Crestor] 10 mg PO HS 10/06/23 10/06/23 hydrOXYzine pamoate [Vistaril] 50 mg PO BID 10/06/23 10/06/23 lisinopriL [Zestril] 2.5 mg PO DAILY 10/06/23 10/06/23 metFORMIN HCL 1,000 mg PO BID 10/06/23 10/06/23 traZODone HCL [Desyrel] 100 mg PO HS 10/06/23 10/06/23 Previous Rx's Medication Instructions Recorded Acetaminophen Tab [Tylenol] 650 mg PO Q6HR PRN tab 08/23/23 Ondansetron Odt [Zofran Odt] 4 mg PO Q8HR PRN #10 tab 08/23/23 Ondansetron Odt [Zofran Odt] 4 mg PO Q8HR PRN #10 tab 10/06/23 Allergies Allergy/AdvReac Type Severity Reaction Status Date / Time dicyclomine HCl [From Bentyl] Allergy Unknown Dyspnea Verified 10/06/23 11:24 latex Allergy Unknown Rash/Hives Verified 10/06/23 11:24 Benzoate Analogues Allergy Unknown Verified 10/06/23 11:24 nitrofurantoin Allergy Nausea Verified 10/06/23 11:24 [From Macrobid] Penicillins Allergy "[place] Verified 10/06/23 11:24 funny" adhesive AdvReac Unknown Itching Verified 10/06/23 11:24 ciprofloxacin AdvReac Unknown Nausea Verified 10/06/23 11:24 Macrolide Antibiotics AdvReac Unknown Nausea Verified 10/06/23 11:24 sulfamethoxazole AdvReac Unknown Unknown Verified 10/06/23 11:24 [From Bactrim] trimethoprim [From Bactrim] AdvReac Unknown Unknown Verified 10/06/23 11:24 diphenhydramine AdvReac Confusion Verified 10/06/23 11:24 [From Benadryl] Review of Systems ROS Statement: Those systems with pertinent positive or pertinent negative responses have been documented in the HPI. ROS Other: All systems not noted in ROS Statement are negative. Past Medical History Past Medical History: Asthma, Chest Pain / Angina, COPD, CVA/TIA, Diabetes Mellitus, GERD/Reflux, Hearing Disorder / Deafness, Hyperlipidemia, Hypertension, Liver Disease, Osteoarthritis (OA), Pneumonia, Seizure Disorder, Sleep Apnea/CPAP/BIPAP Additional Past Medical History / Comment(s): states CVA at 35 yrs old, no weakness @ this time. states seizure at 35 yrs old., DDD- back & neck pain., carpal tunnel syndrome., hx. of cyst on kidney, uses cpap., states having abdominal pain with diarrhea and nausea ., Lives in a halfway with 2 other people. Has a caregiver.n Has [employer] public guardian. History of Any Multi-Drug Resistant Organisms: None Reported Past Surgical History: Heart Catheterization, Orthopedic Surgery Additional Past Surgical History / Comment(s): Cysts removed, left thumb surgery, colonoscopy 08/24/2019. Skin tags removed from both eyes. Past Anesthesia/Blood Transfusion Reactions: Motion Sickness, Postoperative Nausea & Vomiting (PONV) Past Psychological History: Anxiety, Bipolar, Depression, Schizophrenia Smoking Status: Current every day smoker Past Alcohol Use History: Rare Past Drug Use History: None Reported - Past Family History Brother(s) Family Medical History: Diabetes Mellitus Additional Family Medical History / Comment(s): Patient has 2 brothers. One from complications from diabetes. The second is alive with diabetes. Sister(s) Family Medical History: Cancer Additional Family Medical History / Comment(s): Patient has one sister with breast cancer. Patient does not have any children. Father Family Medical History: Cancer Additional Family Medical History / Comment(s): Father in his 40s or 50s from colon cancer. Mother Family Medical History: Cancer Additional Family Medical History / Comment(s): Mother at age 68 from lung cancer. General Exam Limitations: no limitations General appearance: alert, in no apparent distress Head exam: Present: atraumatic, normocephalic, normal inspection Eye exam: Present: normal appearance, PERRL, EOMI. Absent: scleral icterus, conjunctival injection, periorbital swelling ENT exam: Present: normal exam, mucous membranes moist Neck exam: Present: normal inspection. Absent: tenderness, meningismus, lymphadenopathy Respiratory exam: Present: normal lung sounds bilaterally. Absent: respiratory distress, wheezes, rales, rhonchi, stridor Cardiovascular Exam: Present: regular rate, normal rhythm, normal heart sounds. Absent: systolic murmur, diastolic murmur, rubs, gallop, clicks GI/Abdominal exam: Present: soft, tenderness (epigastric), normal bowel sounds. Absent: distended, guarding, rebound, rigid Extremities exam: Present: normal inspection, full ROM, normal capillary refill. Absent: tenderness, pedal edema, joint swelling, calf tenderness Back exam: Present: normal inspection Neurological exam: Present: alert, oriented X3, CN II-XII intact Psychiatric exam: Present: normal affect, normal mood Skin exam: Present: warm, dry, intact, normal color. Absent: rash Course Vital Signs 10/06/23 10/06/23 10:11 12:21 Temperature 98.7 F Pulse Rate 83 72 Respiratory 16 18 Rate Blood Pressure 137/93 132/74 O2 Sat by Pulse 98 95 Oximetry Medical Decision Making - Medical Decision Making Was pt. sent in by a medical professional or institution (, PA, COMMUNITY SERVICE REPRESENTATIVE, urgent care, hospital, or fci...) When possible be specific @ -No Did you speak to anyone other than the patient for history (EMS, parent, family, police, friend...)? What history was obtained from this source @ -No Did you review nursing and triage notes (agree or disagree)? Why? @ -I reviewed and agree with nursing and triage notes Were old charts reviewed (outside hosp., previous admission, EMS record, old EKG, old radiological studies, urgent care reports/EKG's, fci records)? Report findings @ -No old charts were reviewed Differential Diagnosis (chest pain, altered mental status, abdominal pain women, abdominal pain men, vaginal bleeding, weakness, fever, dyspnea, syncope, headache, dizziness, GI bleed, back pain, seizure, CVA, palpatations, mental health, musculoskeletal)? @Differential Abdominal Pain Men: Appendicitis, cholecystitis, diverticulosis, ischemic bowel, pancreatitis, hepatitis, UTI, gastroenteritis, AAA, incarcerated hernia, bowel obstruction, constipation, inflammatory bowel, hepatitis, peptic ulcer disease, splenic infarction, perforated viscus, testicular torsion, this is not meant to be an all-inclusive list EKG interpreted by me (3pts min.). @ -None X-rays interpreted by me (1pt min.). @ -None done CT interpreted by me (1pt min.). @ -None done U/S interpreted by me (1pt. min.). @ -None done What testing was considered but not performed or refused? (CT, X-rays, U/S, labs)? Why? @ -None What meds were considered but not given or refused? Why? @ -None Did you discuss the management of the patient with other professionals (johana perez i.e. , PA, COMMUNITY SERVICE REPRESENTATIVE, lab, RT, psych nurse, dialysis social worker, head of product, teacher, patient transport officer, mental health case manager)? Give summary @ -No Was smoking cessation discussed for >3mins.? @ -No Was critical care preformed (if so, how long)? @ -No Were there social determinants of health that impacted care today? How? (Homelessness, low income, unemployed, alcoholism, drug addiction, transportation, low edu. Level, literacy, decrease access to med. care, intermediate, rehab)? @ -No Was there de-escalation of care discussed even if they declined (Discuss DNR or withdrawal of care, Hospice)? DNR status @ -No What co-morbidities impacted this encounter? (DM, HTN, Smoking, COPD, CAD, Cancer, CVA, ARF, Chemo, Hep., AIDS, mental health diagnosis, sleep apnea, morbid obesity)? @ -smoking Was patient admitted / discharged? Hospital course, mention meds given and route, prescriptions, significant lab abnormalities, going to OR and other pertinent info. @ -Discharge. 53-year-old male with complaint of generalized bodyaches, nausea. Laboratory results unremarkable for acute signs of infection, kidney and LFTs and pancreatic enzymes within normal limits. Abdominal examination of the patient unremarkable for signs of rigidity, rebound tenderness, or guarding. Due to no history of diarrhea, constipation and unspecified diffuse abdominal pain, CT of abdomen was deferred at this time. Patient states that he feels better after fluid administration and dIV antiemetics. Patient concerned for discharge home due to feelings of anorexia due to nausea, therefor PO challenged was completed and successful. I discussed these findings with the patient, likely secondary to viral infection at this time. Patient negative for COVID, flu, RSV. He will be discharged home with PRN zofran and instructed to follow up with PCP within the next week. Case discussed with Dr. Vizcarra. Undiagnosed new problem with uncertain prognosis? @ -No Drug Therapy requiring intensive monitoring for toxicity (Heparin, Nitro, Insulin, Cardizem)? @ -No Were any procedures done? @ -No Diagnosis/symptom? @ -abdominal pain, nausea, viral syndrome Acute, or Chronic, or Acute on Chronic? @ -acute Uncomplicated (without systemic symptoms) or Complicated (systemic symptoms)? @ -uncomplicated Side effects of treatment? @ -No Exacerbation, Progression, or Severe Exacerbation? @ -No Poses a threat to life or bodily function? How? (Chest pain, USA, SC, pneumonia, PE, COPD, DKA, ARF, appy, cholecystitis, CVA, Diverticulitis, Homicidal, Suic idal, threat to staff... and all critical care pts) @ -No - Lab Data Result diagrams: 10/06/23 10:51 10/06/23 10:51 Lab Results 10/06/23 10/06/23 10/06/23 Range/Units 10:51 10:51 10:51 WBC 7.3 (3.8-10.6) k/uL RBC 5.26 (4.30-5.90) m/uL Hgb 16.5 (13.0-17.5) gm/dL Hct 46.6 (39.0-53.0) % MCV 88.5 (80.0-100.0) fL MCH 31.3 (25.0-35.0) pg MCHC 35.4 (31.0-37.0) g/dL RDW 13.1 (11.5-15.5) % Plt Count 170 (150-450) k/uL MPV 7.6 Neutrophils % 70 % Lymphocytes % 19 % Monocytes % 7 % Eosinophils % 2 % Basophils % 0 % Neutrophils # 5.1 (1.3-7.7) k/uL Lymphocytes # 1.4 (1.0-4.8) k/uL Monocytes # 0.5 (0-1.0) k/uL Eosinophils # 0.1 (0-0.7) k/uL Basophils # 0.0 (0-0.2) k/uL PT 10.4 (10.0-12.5) sec INR 0.9 (<1.2) APTT 23.4 (22.0-30.0) sec Sodium 137 (137-145) mmol/L Potassium 4.2 (3.5-5.1) mmol/L Chloride 105 (98-107) mmol/L Carbon Dioxide 25 (22-30) mmol/L Anion Gap 7 mmol/L BUN 17 (9-20) mg/dL Creatinine 0.62 L (0.66-1.25) mg/dL Est GFR (CKD-EPI)AfAm >90 (>60 ml/min/1.73 sqM) Est GFR (CKD-EPI)NonAf >90 (>60 ml/min/1.73 sqM) Glucose 194 H (74-99) mg/dL Calcium 9.6 (8.4-10.2) mg/dL Total Bilirubin 0.5 (0.2-1.3) mg/dL AST 31 (17-59) U/L ALT 72 H (4-49) U/L Alkaline Phosphatase 82 (38-126) U/L Total Protein 6.4 (6.3-8.2) g/dL Albumin 4.3 (3.5-5.0) g/dL Amylase 44 (30-110) U/L Lipase 66 (23-300) U/L Influenza Type A (PCR) (Not Detectd) Influenza Type B (PCR) (Not Detectd) RSV (PCR) (Not Detectd) SARS-CoV-2 (PCR) (Not Detectd) 10/06/23 Range/Units 10:51 WBC (3.8-10.6) k/uL RBC (4.30-5.90) m/uL Hgb (13.0-17.5) gm/dL Hct (39.0-53.0) % MCV (80.0-100.0) fL MCH (25.0-35.0) pg MCHC (31.0-37.0) g/dL RDW (11.5-15.5) % Plt Count (150-450) k/uL MPV Neutrophils % % Lymphocytes % % Monocytes % % Eosinophils % % Basophils % % Neutrophils # (1.3-7.7) k/uL Lymphocytes # (1.0-4.8) k/uL Monocytes # (0-1.0) k/uL Eosinophils # (0-0.7) k/uL Basophils # (0-0.2) k/uL PT (10.0-12.5) sec INR (<1.2) APTT (22.0-30.0) sec Sodium (137-145) mmol/L Potassium (3.5-5.1) mmol/L Chloride (98-107) mmol/L Carbon Dioxide (22-30) mmol/L Anion Gap mmol/L BUN (9-20) mg/dL Creatinine (0.66-1.25) mg/dL Est GFR (CKD-EPI)AfAm (>60 ml/min/1.73 sqM) Est GFR (CKD-EPI)NonAf (>60 ml/min/1.73 sqM) Glucose (74-99) mg/dL Calcium (8.4-10.2) mg/dL Total Bilirubin (0.2-1.3) mg/dL AST (17-59) U/L ALT (4-49) U/L Alkaline Phosphatase (38-126) U/L Total Protein (6.3-8.2) g/dL Albumin (3.5-5.0) g/dL Amylase (30-110) U/L Lipase (23-300) U/L Influenza Type A (PCR) Not Detected (Not Detectd) Influenza Type B (PCR) Not Detected (Not Detectd) RSV (PCR) Not Detected (Not Detectd) SARS-CoV-2 (PCR) Not Detected (Not Detectd) Disposition Clinical Impression: Nonspecific abdominal pain, Viral syndrome Narrative: Please return to the Emergency Department if symptoms worsen or any other concerns. Disposition: HOME SELF-CARE Condition: Good Instructions (If sedation given, give patient instructions): Abdominal Pain (ED) Prescriptions: Ondansetron Odt [Zofran Odt] 4 mg PO Q8HR PRN #10 tab PRN Reason: Nausea Is patient prescribed a controlled substance at d/c from ED?: No Referrals: Ramya Saul MD [Primary Care Provider] - 1-2 days Time of Disposition: 12:10
[2023-10-06 10:53] VITALS: TEMP 98.7
[2023-10-06] MEDS: ONDANSETRON 4 MG/2 ML VIAL IVP STA (10:57)
[2023-10-06] MEDS: SODIUM CHLORIDE 0.9% 1,000 ML IV STA (10:57)
[2023-10-06] MEDS: FAMOTIDINE 20 MG/2 ML VIAL IV STA (10:57)
[2023-10-06 11:10] LABS: Basophils % (A) 0 %; Eosinophils # (A) 0.1 k/uL (0-0.7); Eosinophils % (A) 2 %; HCT 46.6 % (39.0-53.0); HGB 16.5 gm/dL (13.0-17.5); Lymphocytes # (A) 1.4 k/uL (1.0-4.8); Lymphocytes % (A) 19 %; MCH 31.3 pg (25.0-35.0); MCHC 35.4 g/dL (31.0-37.0); MCV 88.5 fL (80.0-100.0); Mean Platelet Volume 7.6; Monocytes # (A) 0.5 k/uL (0-1.0); Monocytes % (A) 7 %; Neutrophils # (A) 5.1 k/uL (1.3-7.7); Neutrophils % (A) 70 %; Platelet Count 170 k/uL (150-450); RBC 5.26 m/uL (4.30-5.90); RDW 13.1 % (11.5-15.5); WBC 7.3 k/uL (3.8-10.6)
[2023-10-06 11:22] LABS: INR 0.9 (<1.2); Partial Thromboplastin Time 23.4 sec (22.0-30.0); Prothrombin Time 10.4 sec (10.0-12.5)
[2023-10-06 11:32] LABS: ALT 72 U/L (4-49); AST 31 U/L (17-59); African American GFR (CKD) >90 (>60 ml/min/1.73 sqM); Albumin 4.3 g/dL (3.5-5.0); Alkaline Phosphatase 82 U/L (38-126); Amylase 44 U/L (30-110); Anion Gap 7 mmol/L; Blood Urea Nitrogen 17 mg/dL (9-20); Calcium 9.6 mg/dL (8.4-10.2); Carbon Dioxide 25 mmol/L (22-30); Chloride 105 mmol/L (98-107); Glucose 194 mg/dL (74-99); Lipase 66 U/L (23-300); Non-African American GFR(CKD) >90 (>60 ml/min/1.73 sqM); Potassium 4.2 mmol/L (3.5-5.1); Sodium 137 mmol/L (137-145); Total Bilirubin 0.5 mg/dL (0.2-1.3); Total Protein 6.4 g/dL (6.3-8.2)
[2023-10-06 12:24] VITALS: BP 132/74; PULSE 72; RESP 18
== END 2023-10-06 12:22 | disposition home or self-care (01) ==
LOC: EC 10:05
DX: B34.9 Viral infection, unspecified (principal); R10.13 Epigastric pain; F17.200 Nicotine dependence, unspecified, uncomplicated; Z91.040 Latex allergy status; Z91.09 Other allergy status, other than to drugs and biological substances; Z88.2 Allergy status to sulfonamides; Z88.1 Allergy status to other antibiotic agents; Z88.8 Allergy status to other drugs, medicaments and biological substances; Z88.0 Allergy status to penicillin
CPT/HCPCS: 36415; 80053; 82150; 83690; 85025; 85610; 85730; 87636; 99284; 96374; 96375; 96361; J2405; J3490

== ENCOUNTER 2023-11-21 13:15 | Emergency (ER) | payer MEDICARE, OTHER ==
[2023-11-21 13:25] LABS: Glucose,Whole Blood 353 mg/dL (70-110)
--- NOTE | 2023-11-21 14:02 | ED ---
Recheck HPI - General Chief Complaint: Abdominal Pain Stated Complaint: High Blood sugar Time Seen by Provider: 11/21/23 14:00 Source: patient, RN notes reviewed, old records reviewed Mode of arrival: ambulatory Limitations: no limitations - History of Present Illness Initial Comments: This is a 53-year-old male to the ER for evaluation. Patient coming in with multiple complaints surrounding blood sugar with nausea generalized pain. Nausea vomiting high blood pressure low blood sugar high blood sugar, no travel history no sick contacts no other complaints MD Complaint: abnormal lab (Upper glycemia), other (Hypoglycemia) -: unknown Returns Today for: Called Because of Abnormal Lab/Test Symptoms Since Prior Visit: no new symptoms Context: planned re-check Associated Symptoms: none Treatments Prior to Arrival: other (0) - Related Data Home Medications Medication Instructions Recorded Confirmed Aspirin EC [Ecotrin Low Dose] 81 mg PO DAILY 07/09/20 12/06/23 ARIPiprazole [Abilify] 15 mg PO DAILY 05/26/23 12/06/23 Melatonin 5 mg PO HS 05/26/23 12/06/23 Albuterol Inhaler [Ventolin Hfa 1 - 2 puff INHALATION RT-QID PRN 08/20/23 12/06/23 Inhaler] Albuterol Nebulized [Ventolin 2.5 mg INHALATION RT-Q6H PRN 08/20/23 12/06/23 Nebulized] Esomeprazole Magnesium [NexIUM] 40 mg PO DAILY 08/20/23 12/06/23 Nitroglycerin Sl Tabs [Nitrostat] 0.4 mg SL Q5M PRN 08/20/23 12/06/23 Montelukast [Singulair] 10 mg PO HS 10/06/23 12/06/23 lisinopriL [Zestril] 2.5 mg PO DAILY 10/06/23 12/06/23 metFORMIN HCL 1,000 mg PO BID 10/06/23 12/06/23 traZODone HCL [Desyrel] 100 mg PO HS 10/06/23 12/06/23 Atorvastatin [Lipitor] 10 mg PO HS 12/06/23 12/06/23 Cholecalciferol (Vitamin D3) 50 mcg PO DAILY 12/06/23 12/06/23 [Vitamin D3 (50 Mcg = 2000 Iu)] Doxycycline Hyclate 100 mg PO BID 12/06/23 12/06/23 Famotidine [Pepcid] 20 mg PO BID PRN 12/06/23 12/06/23 Ibuprofen [Motrin] 800 mg PO Q8H PRN 12/06/23 12/06/23 Insulin Glargine,Hum.rec.anlog 10 units SQ HS 12/06/23 12/06/23 [Lantus Solostar Pen] Meloxicam [Mobic] 7.5 mg PO DAILY PRN 12/06/23 12/06/23 Metoclopramide [Reglan] 5 mg PO AC-TID 12/06/23 12/06/23 Ondansetron Odt [Zofran Odt] 4 mg PO BID PRN 12/06/23 12/06/23 Varenicline [Chantix Starter Pack] 0.5 - 1 mg PO DIRECTED 12/06/23 12/06/23 Allergies Allergy/AdvReac Type Severity Reaction Status Date / Time dicyclomine HCl [From Bentyl] Allergy Unknown Dyspnea Verified 12/06/23 10:54 latex Allergy Unknown Rash/Hives Verified 12/06/23 10:54 Benzoate Analogues Allergy Unknown Verified 12/06/23 10:54 nitrofurantoin Allergy Nausea Verified 12/06/23 10:54 [From Macrobid] Penicillins Allergy "[place] Verified 12/06/23 10:54 funny" adhesive AdvReac Unknown Itching Verified 12/06/23 10:54 ciprofloxacin AdvReac Unknown Nausea Verified 12/06/23 10:54 Macrolide Antibiotics AdvReac Unknown Nausea Verified 12/06/23 10:54 sulfamethoxazole AdvReac Unknown Unknown Verified 12/06/23 10:54 [From Bactrim] trimethoprim [From Bactrim] AdvReac Unknown Unknown Verified 12/06/23 10:54 diphenhydramine AdvReac Confusion Verified 12/06/23 10:54 [From Benadryl] Review of Systems ROS Statement: Those systems with pertinent positive or pertinent negative responses have been documented in the HPI. ROS Other: All systems not noted in ROS Statement are negative. Past Medical History Past Medical History: Asthma, Chest Pain / Angina, COPD, CVA/TIA, Diabetes Mellitus, GERD/Reflux, Hearing Disorder / Deafness, Hyperlipidemia, Hypertension, Liver Disease, Osteoarthritis (OA), Pneumonia, Seizure Disorder, Sleep Apnea/CPAP/BIPAP Additional Past Medical History / Comment(s): states CVA at 35 yrs old, no weakness @ this time. states seizure at 35 yrs old., DDD- back & neck pain., carpal tunnel syndrome., hx. of cyst on kidney, uses cpap., states having abdominal pain with diarrhea and nausea ., Lives in a fpc with 2 other people. Has a caregiver.n Has [employer] public guardian. History of Any Multi-Drug Resistant Organisms: None Reported Past Surgical History: Heart Catheterization, Orthopedic Surgery Additional Past Surgical History / Comment(s): Cysts removed, left thumb surgery, colonoscopy 08/24/2019. Skin tags removed from both eyes. Past Anesthesia/Blood Transfusion Reactions: Motion Sickness, Postoperative Nausea & Vomiting (PONV) Past Psychological History: Anxiety, Bipolar, Depression, Schizophrenia Smoking Status: Current every day smoker Past Alcohol Use History: Rare Past Drug Use History: None Reported - Past Family History Brother(s) Family Medical History: Diabetes Mellitus Additional Family Medical History / Comment(s): Patient has 2 brothers. One from complications from diabetes. The second is alive with diabetes. Sister(s) Family Medical History: Cancer Additional Family Medical History / Comment(s): Patient has one sister with breast cancer. Patient does not have any children. Father Family Medical History: Cancer Additional Family Medical History / Comment(s): Father in his 40s or 50s from colon cancer. Mother Family Medical History: Cancer Additional Family Medical History / Comment(s): Mother at age 68 from lung cancer. General Exam Limitations: no limitations General appearance: alert, in no apparent distress Head exam: Present: atraumatic, normocephalic, normal inspection Eye exam: Present: normal appearance, PERRL, EOMI. Absent: scleral icterus, conjunctival injection, periorbital swelling ENT exam: Present: normal exam, mucous membranes moist Neck exam: Present: normal inspection. Absent: tenderness, meningismus, lymphadenopathy Respiratory exam: Present: normal lung sounds bilaterally. Absent: respiratory distress, wheezes, rales, rhonchi, stridor Cardiovascular Exam: Present: regular rate, normal rhythm, normal heart sounds. Absent: systolic murmur, diastolic murmur, rubs, gallop, clicks GI/Abdominal exam: Present: soft, normal bowel sounds. Absent: distended, tenderness, guarding, rebound, rigid Extremities exam: Present: normal inspection, full ROM, normal capillary refill. Absent: tenderness, pedal edema, joint swelling, calf tenderness Back exam: Present: normal inspection Neurological exam: Present: alert, oriented X3, CN II-XII intact Psychiatric exam: Present: normal affect, normal mood Skin exam: Present: warm, dry, intact, normal color. Absent: rash Course Vital Signs 11/21/23 11/21/23 11/21/23 13:17 14:29 16:05 Temperature 97.6 F Pulse Rate 98 71 61 Respiratory 18 18 20 Rate Blood Pressure 134/91 125/88 126/88 O2 Sat by Pulse 97 94 L 95 Oximetry 11/21/23 16:28 Temperature 98.4 F Pulse Rate 69 Respiratory 20 Rate Blood Pressure 117/75 O2 Sat by Pulse 96 Oximetry - Reevaluation(s) Reevaluation #1: 11/21/23 16:02 Medical records reviewed Reevaluation #2: 11/21/23 16:02 Patient symptoms unchanged may be feels improved Reevaluation #3: 11/21/23 16:02 Patient informed of results and questions were answered Reevaluation #4: Was pt. sent in by a medical professional or institution (, PA, EVP AND CHIEF OPERATING OFFICER, urgent care, hospital, or residential...) When possible be specific @ -no Did you speak to anyone other than the patient for history (EMS, parent, family, police, friend...)? What history was obtained from this source @ -no Did you review nursing and triage notes (agree or disagree)? Why? @ -agree Are old charts reviewed (outside hosp., previous admission, EMS record, old EKG, old radiological studies, urgent care reports/EKG's, residential records)? Report findings @ -yes Differential Diagnosis (chest pain, altered mental status, abdominal pain women, abdominal pain men, vaginal bleeding, weakness, fever, dyspnea, syncope, headache, dizziness, GI bleed, back pain, seizure, CVA, palpatations, mental health, musculoskeletal)? @ -prior EKG interpreted by me (3pts min.). @ -no X-rays interpreted by me (1pt min.). @ -no CT interpreted by me (1pt min.). @ -no U/S interpreted by me (1pt. min.). @ -no What testing was considered but not performed or refused? (CT, X-rays, U/S, labs)? Why? @ -none What meds were considered but not given or refused? Why? @ -none Did you discuss the management of the patient with other professionals (professionals i.e. DrRedd, PA, EVP AND CHIEF OPERATING OFFICER, lab, RT, psych nurse, social human services assistants, cake mixer, teacher, law enforcement officer, community case manager)? Give summary @ -no Was smoking cessation discussed for >3mins.? @ -no Were there social determinants of health that impacted care today? How? (Homelessness, low income, unemployed, alcoholism, drug addiction, transportation, low edu. Level, literacy, decrease access to med. care, group home, rehab)? @ -none Was there de-escalation of care discussed even if they declined (Discuss DNR or withdrawal of care, Hospice)? DNR status @ -no What co-morbidities impacted this encounter? (DM, HTN, Smoking, COPD, CAD, Cancer, CVA, ARF, Chemo, Hep., AIDS, mental health diagnosis, sleep apnea, morbid obesity)? @ -none Was patient admitted / discharged? Hospital course, mention meds given and route, prescriptions, significant lab abnormalities, going to OR and other pert inent info. @ - 53 male to ER for evaluation of multiple nonspecific symptoms with no acute cause found here in the ER patient has no complaints and can be discharged home Discharged Was critical care preformed (if so, how long)? @ -no Undiagnosed new problem with uncertain prognosis? @ -no Drug Therapy requiring intensive monitoring for toxicity (Heparin, Nitro, Insulin, Cardizem)? @ -no Were any procedures done? @ -no Diagnosis/symptom? @ -Normal exam Acute, or Chronic, or Acute on Chronic? @ -Acute Uncomplicated (without systemic symptoms) or Complicated (systemic symptoms)? @ -Complicated Side effects of treatment? @ -no Exacerbation, Progression, or Severe Exacerbation? @ -exacerbation Poses a threat to life or bodily function? How? (Chest pain, [place], NM, pneumonia, PE, COPD, DKA, ARF, appy, cholecystitis, CVA, Diverticulitis, Homicidal, Suicidal, threat to staff... and all critical care pts) @ -no Medical Decision Making - Medical Decision Making 53 male to ER for evaluation of multiple nonspecific symptoms with no acute cause found here in the ER patient has no complaints and can be discharged home - Lab Data Result diagrams: 11/21/23 15:18 11/21/23 15:18 Lab Results 11/21/23 11/21/23 11/21/23 Range/Units 13:23 15:18 15:18 WBC 12.9 H (3.8-10.6) k/uL RBC 5.40 (4.30-5.90) m/uL Hgb 16.4 (13.0-17.5) gm/dL Hct 48.8 (39.0-53.0) % MCV 90.4 (80.0-100.0) fL MCH 30.4 (25.0-35.0) pg MCHC 33.6 (31.0-37.0) g/dL RDW 13.3 (11.5-15.5) % Plt Count 206 (150-450) k/uL MPV 7.6 Neutrophils % 89 % Lymphocytes % 7 % Monocytes % 3 % Eosinophils % 0 % Basophils % 0 % Neutrophils # 11.5 H (1.3-7.7) k/uL Lymphocytes # 0.9 L (1.0-4.8) k/uL Monocytes # 0.4 (0-1.0) k/uL Eosinophils # 0.0 (0-0.7) k/uL Basophils # 0.1 (0-0.2) k/uL Sodium 135 L (137-145) mmol/L Potassium 4.6 (3.5-5.1) mmol/L Chloride 105 (98-107) mmol/L Carbon Dioxide 24 (22-30) mmol/L Anion Gap 6 mmol/L BUN 19 (9-20) mg/dL Creatinine 0.64 L (0.66-1.25) mg/dL Est GFR (CKD-EPI)AfAm >90 (>60 ml/min/1.73 sqM) Est GFR (CKD-EPI)NonAf >90 (>60 ml/min/1.73 sqM) Glucose 258 H (74-99) mg/dL POC Glucose (mg/dL) 353 H (70-110) mg/dL POC Glu Investment Banking Associate ID Kylie Bahena Calcium 10.0 (8.4-10.2) mg/dL Phosphorus 3.4 (2.5-4.5) mg/dL Magnesium 1.9 (1.6-2.3) mg/dL Total Bilirubin 0.4 (0.2-1.3) mg/dL AST 29 (17-59) U/L ALT 61 H (4-49) U/L Alkaline Phosphatase 96 (38-126) U/L Total Protein 6.2 L (6.3-8.2) g/dL Albumin 4.2 (3.5-5.0) g/dL Lipase 125 (23-300) U/L Disposition Clinical Impression: Abdominal colic Disposition: HOME SELF-CARE Condition: Good Instructions (If sedation given, give patient instructions): Abdominal Pain (ED) Is patient prescribed a controlled substance at d/c from ED?: No Referrals: Ramya Saul MD [Primary Care Provider] - 1-2 days Time of Disposition: 16:00
[2023-11-21] MEDS: ONDANSETRON 4 MG/2 ML VIAL IVP STA ×2 (15:10→15:14)
[2023-11-21] MEDS: PANTOPRAZOLE 40 MG/10 ML VIAL IVP STA (15:10)
[2023-11-21] MEDS: KETOROLAC 15 MG/ML 1 ML VIAL IVP STA (15:11)
[2023-11-21] MEDS: SODIUM CHLORIDE 0.9% 1,000 ML IV STA (15:14)
[2023-11-21 15:24] LABS: Basophils # (A) 0.1 k/uL (0-0.2); Basophils % (A) 0 %; Eosinophils % (A) 0 %; HCT 48.8 % (39.0-53.0); HGB 16.4 gm/dL (13.0-17.5); Lymphocytes # (A) 0.9 k/uL (1.0-4.8); Lymphocytes % (A) 7 %; MCH 30.4 pg (25.0-35.0); MCHC 33.6 g/dL (31.0-37.0); MCV 90.4 fL (80.0-100.0); Mean Platelet Volume 7.6; Monocytes # (A) 0.4 k/uL (0-1.0); Monocytes % (A) 3 %; Neutrophils # (A) 11.5 k/uL (1.3-7.7); Neutrophils % (A) 89 %; Platelet Count 206 k/uL (150-450); RDW 13.3 % (11.5-15.5); WBC 12.9 k/uL (3.8-10.6)
[2023-11-21 15:36] LABS: ALT 61 U/L (4-49); AST 29 U/L (17-59); African American GFR (CKD) >90 (>60 ml/min/1.73 sqM); Albumin 4.2 g/dL (3.5-5.0); Alkaline Phosphatase 96 U/L (38-126); Anion Gap 6 mmol/L; Blood Urea Nitrogen 19 mg/dL (9-20); Carbon Dioxide 24 mmol/L (22-30); Chloride 105 mmol/L (98-107); Glucose 258 mg/dL (74-99); Lipase 125 U/L (23-300); Magnesium 1.9 mg/dL (1.6-2.3); Non-African American GFR(CKD) >90 (>60 ml/min/1.73 sqM); Phosphorus 3.4 mg/dL (2.5-4.5); Potassium 4.6 mmol/L (3.5-5.1); Sodium 135 mmol/L (137-145); Total Bilirubin 0.4 mg/dL (0.2-1.3); Total Protein 6.2 g/dL (6.3-8.2)
[2023-11-21 16:53] VITALS: BP 117/75; PULSE 69; RESP 20; TEMP 98.4
== END 2023-11-21 16:29 | disposition home or self-care (01) ==
LOC: EC 13:15
DX: R10.84 Generalized abdominal pain (principal); I10 Essential (primary) hypertension; F17.200 Nicotine dependence, unspecified, uncomplicated; Z88.0 Allergy status to penicillin; Z88.1 Allergy status to other antibiotic agents; Z88.2 Allergy status to sulfonamides; Z88.8 Allergy status to other drugs, medicaments and biological substances; Z91.040 Latex allergy status; Z86.73 Personal history of transient ischemic attack (TIA), and cerebral infarction without residual deficits
CPT/HCPCS: 36415; 80053; 83690; 83735; 84100; 85025; 99284; 96374; 96375 ×2; 96361; J2405; J1885; C9113

== ENCOUNTER 2023-12-01 04:56 | Emergency (ER) | payer MEDICARE, OTHER ==
[2023-12-01 05:01] VITALS: TEMP 98
--- NOTE | 2023-12-01 05:43 | XR ---
EXAMINATION TYPE: XR chest 2V DATE OF EXAM: 12/01/2023 COMPARISON: CTA chest August 27, 2023 HISTORY: Chest pain. TECHNIQUE: Frontal and lateral views of the chest are obtained. FINDINGS: There is no suspicious new focal air space opacity, pleural effusion, or pneumothorax seen . The cardiac silhouette size remains within normal limits. The osseous structures are intact. Rim calcified 5.5 cm left upper quadrant or splenic lesion is redemonstrated. IMPRESSION: No acute process. No significant change from prior.
[2023-12-01 05:46] LABS: Basophils % (A) 0 %; Eosinophils # (A) 0.2 k/uL (0-0.7); Eosinophils % (A) 3 %; HCT 48.6 % (39.0-53.0); HGB 16.5 gm/dL (13.0-17.5); Lymphocytes # (A) 1.5 k/uL (1.0-4.8); Lymphocytes % (A) 23 %; MCH 31.1 pg (25.0-35.0); MCHC 33.9 g/dL (31.0-37.0); MCV 91.6 fL (80.0-100.0); Mean Platelet Volume 7.3; Monocytes # (A) 0.4 k/uL (0-1.0); Monocytes % (A) 7 %; Neutrophils # (A) 4.3 k/uL (1.3-7.7); Neutrophils % (A) 66 %; Platelet Count 210 k/uL (150-450); RDW 13.4 % (11.5-15.5); WBC 6.5 k/uL (3.8-10.6)
[2023-12-01 05:55] LABS: INR 0.9 (<1.2); Partial Thromboplastin Time 22.6 sec (22.0-30.0); Prothrombin Time 10.2 sec (10.0-12.5)
[2023-12-01 06:06] LABS: ALT 39 U/L (4-49); AST 26 U/L (17-59); African American GFR (CKD) >90 (>60 ml/min/1.73 sqM); Albumin 4.3 g/dL (3.5-5.0); Alkaline Phosphatase 77 U/L (38-126); Anion Gap 4 mmol/L; Blood Urea Nitrogen 10 mg/dL (9-20); Calcium 9.3 mg/dL (8.4-10.2); Carbon Dioxide 21 mmol/L (22-30); Chloride 112 mmol/L (98-107); Glucose 175 mg/dL (74-99); Non-African American GFR(CKD) >90 (>60 ml/min/1.73 sqM); Potassium 4.2 mmol/L (3.5-5.1); Sodium 137 mmol/L (137-145); Total Bilirubin 0.8 mg/dL (0.2-1.3); Total Protein 6.2 g/dL (6.3-8.2)
--- NOTE | 2023-12-01 06:31 | ED ---
Chest Pain HPI - General Source: patient, RN notes reviewed Mode of arrival: ambulatory Limitations: no limitations - History of Present Illness MD Complaint: chest pain <Isabelle Hill - Last Filed: 12/01/23 06:29> <Shawn Vizcarra - Last Filed: 12/01/23 08:52> - General Chief Complaint: Chest Pain Stated Complaint: Chest Pain, Vomiting, Dehydration Time Seen by Provider: 12/01/23 06:29 - History of Present Illness Initial Comments: Quick Note: This is a 53-year-old male who presents to the emergency department for chest pain, nausea, vomiting, and abdominal pain. Symptoms started over the last 24 hours. States that he has not been able to keep anything down. Also reports pain in his right shoulder and right side of the neck. He is concerned that his sugar has not been checked as well. (Isabelle Hill) Dictation was produced using [employer] dictation software. please excuse any grammatical, word or spelling errors. Chief Complaint: 53-year-old male with past medical history of diabetes, asthma, dyslipidemia and seizure disorder presents to the ER for right-sided body pain. History of Present Illness: Patient is a 53-year-old male states that he is here for right-sided body pain. States that worst of his pain is in his neck. He has pain of his entire right side of his body including his right forehead, right face, right arm, right neck, right chest, right abdomen, right lower extremity. Patient states that he has also had some nausea and vomiting. Denies any fever, chills or night sweats. Patient lives in a long-term. Denies any shortness of breath. The ROS documented in this emergency department record has been reviewed and confirmed by me. Those systems with pertinent positive or negative responses have been documented in the HPI. All other systems are other negative and/or noncontributory. (Shawn Vizcarra) - Related Data Home Medications Medication Instructions Recorded Confirmed Aspirin EC [Ecotrin Low Dose] 81 mg PO DAILY 07/09/20 10/06/23 ARIPiprazole [Abilify] 15 mg PO DAILY 05/26/23 10/06/23 Cholecalciferol [Vitamin D3 (25 25 mcg PO DAILY 05/26/23 10/06/23 Mcg = 1000 Iu)] Melatonin 5 mg PO HS 05/26/23 10/06/23 Albuterol Inhaler [Ventolin Hfa 1 - 2 puff INHALATION RT-QID PRN 08/20/23 10/06/23 Inhaler] Albuterol Nebulized [Ventolin 2.5 mg INHALATION RT-Q6H PRN 08/20/23 10/06/23 Nebulized] Esomeprazole Magnesium [NexIUM] 40 mg PO DAILY 08/20/23 10/06/23 Nitroglycerin Sl Tabs [Nitrostat] 0.4 mg SL Q5M PRN 08/20/23 10/06/23 Budesonide/Formoterol Fumarate 2 puff INHALATION RT-BID 10/06/23 10/06/23 [Symbicort 160-4.5 Mcg Inhaler] Cyclobenzaprine [Flexeril] 5 mg PO BID PRN 10/06/23 10/06/23 Dicyclomine [Bentyl] 10 mg PO TID 10/06/23 10/06/23 Hydrocortisone Cream 1 applic TOPICAL BID 10/06/23 10/06/23 [Hydrocortisone 2.5% Cream] Ibuprofen [Motrin] 600 mg PO Q8HR 10/06/23 10/06/23 Montelukast [Singulair] 10 mg PO DAILY 10/06/23 10/06/23 Pantoprazole [Protonix] 40 mg PO DAILY 10/06/23 10/06/23 Rosuvastatin [Crestor] 10 mg PO HS 10/06/23 10/06/23 hydrOXYzine pamoate [Vistaril] 50 mg PO BID 10/06/23 10/06/23 lisinopriL [Zestril] 2.5 mg PO DAILY 10/06/23 10/06/23 metFORMIN HCL 1,000 mg PO BID 10/06/23 10/06/23 traZODone HCL [Desyrel] 100 mg PO HS 10/06/23 10/06/23 Previous Rx's Medication Instructions Recorded Acetaminophen Tab [Tylenol] 650 mg PO Q6HR PRN tab 08/23/23 Ondansetron Odt [Zofran Odt] 4 mg PO Q8HR PRN #10 tab 08/23/23 Ondansetron Odt [Zofran Odt] 4 mg PO Q8HR PRN #10 tab 10/06/23 Allergies Allergy/AdvReac Type Severity Reaction Status Date / Time dicyclomine HCl [From Bentyl] Allergy Unknown Dyspnea Verified 12/01/23 05:01 latex Allergy Unknown Rash/Hives Verified 12/01/23 05:01 Benzoate Analogues Allergy Unknown Verified 12/01/23 05:01 nitrofurantoin Allergy Nausea Verified 12/01/23 05:01 [From Macrobid] Penicillins Allergy "[place] Verified 12/01/23 05:01 funny" adhesive AdvReac Unknown Itching Verified 12/01/23 05:01 ciprofloxacin AdvReac Unknown Nausea Verified 12/01/23 05:01 Macrolide Antibiotics AdvReac Unknown Nausea Verified 12/01/23 05:01 sulfamethoxazole AdvReac Unknown Unknown Verified 12/01/23 05:01 [From Bactrim] trimethoprim [From Bactrim] AdvReac Unknown Unknown Verified 12/01/23 05:01 diphenhydramine AdvReac Confusion Verified 12/01/23 05:01 [From Benadryl] Review of Systems ROS Other: All systems not noted in ROS Statement are negative. <Isabelle Hill - Last Filed: 12/01/23 06:29> ROS Other: All systems not noted in ROS Statement are negative. <Shawn Vizcarra - Last Filed: 12/01/23 08:52> ROS Statement: Those systems with pertinent positive or pertinent negative responses have been documented in the HPI. Past Medical History Past Medical History: Asthma, Chest Pain / Angina, COPD, CVA/TIA, Diabetes Mellitus, GERD/Reflux, Hearing Disorder / Deafness, Hyperlipidemia, Hypertension, Liver Disease, Osteoarthritis (OA), Pneumonia, Seizure Disorder, Sleep Apnea/CPAP/BIPAP Additional Past Medical History / Comment(s): states CVA at 35 yrs old, no weakness @ this time. states seizure at 35 yrs old., DDD- back & neck pain., carpal tunnel syndrome., hx. of cyst on kidney, uses cpap., states having abdominal pain with diarrhea and nausea ., Lives in a long-term with 2 other people. Has a caregiver.n Has [employer] public guardian. History of Any Multi-Drug Resistant Organisms: None Reported Past Surgical History: Heart Catheterization, Orthopedic Surgery Additional Past Surgical History / Comment(s): Cysts removed, left thumb surgery, colonoscopy 08/24/2019. Skin tags removed from both eyes. Past Anesthesia/Blood Transfusion Reactions: Motion Sickness, Postoperative Nausea & Vomiting (PONV) Past Psychological History: Anxiety, Bipolar, Depression, Schizophrenia Smoking Status: Current every day smoker Past Alcohol Use History: Rare Past Drug Use History: None Reported - Past Family History Brother(s) Family Medical History: Diabetes Mellitus Additional Family Medical History / Comment(s): Patient has 2 brothers. One from complications from diabetes. The second is alive with diabetes. Sister(s) Family Medical History: Cancer Additional Family Medical History / Comment(s): Patient has one sister with breast cancer. Patient does not have any children. Father Family Medical History: Cancer Additional Family Medical History / Comment(s): Father in his 40s or 50s from colon cancer. Mother Family Medical History: Cancer Additional Family Medical History / Comment(s): Mother at age 68 from lung cancer. <Isabelle Hill - Last Filed: 12/01/23 06:29> General Exam <Isabelle Hill - Last Filed: 12/01/23 06:29> <hSawn Vizcarra - Last Filed: 12/01/23 08:52> - General Exam Comments Initial Comments: Visual Physical Exam Vital signs reviewed General: Well-appearing, nontoxic, no acute distress. Head: Normocephalic, atraumatic Eyes: PERRLA, EOMI ENT: Airway patent Chest: Nonlabored breathing Skin: No visual rash, normal skin tone Neuro: Alert and oriented 3 Musculoskeletal: No gross abnormalities (Isabelle Hill) PHYSICAL EXAM: General Impression: Alert and oriented x3, n mild distress secondary to nausea HEENT: Normocephalic atraumatic, extra-ocular movements intact, pupils equal and reactive to light bilaterally, mucous membranes moist. Cardiovascular: Heart regular rate and rhythm Chest: Able to complete full sentences, no retractions, no tachypnea Abdomen: abdomen soft, non-tender, non-distended, no organomegaly Musculoskeletal: Pulses present and equal in all extremities, no peripheral edema Motor: no focal deficits noted Neurological: CN II-XII grossly intact, no focal motor or sensory deficits noted Skin: Intact with no visualized rashes Psych: Normal affect and mood (Shawn Vizcarra) Course Vital Signs 12/01/23 04:58 Temperature 98 F Pulse Rate 89 Respiratory 19 Rate Blood Pressure 145/87 O2 Sat by Pulse 99 Oximetry Chest Pain [facility] <Isabelle Hill - Last Filed: 12/01/23 06:29> <Shawn Vizcarra - Last Filed: 12/01/23 08:52> - [facility] I performed the QuickNote portion of this chart. Signed Isabelle Hill PA-C. (Isabelle Hill) My EKG interpretation: Ventricular rate 73, sinus rhythm,. 132, cures 102, QTc 4 7. No LA prolongation, no QTC prolongation, no ST or T-wave changes noted. EKG compared to [default value] showing no changes. Overall, this EKG is unremarkable Was pt. sent in by a medical professional or institution ([facility], BRA[employer]ING MACHINE TENDER, urgent care, hospital, or [facility]...) When possible be specific @ -No Did you speak to anyone other than the patient for history (EMS, parent, family, police, friend...)? What history was obtained from this source @ -No Did you review nursing and triage notes (agree or disagree)? Why? @ -I reviewed and agree with nursing and triage notes Were old charts reviewed (outside hosp., previous admission, EMS record, old EKG, old radiological studies, urgent care reports/EKG's, [facility] records)? Report findings @ -No old charts were reviewed Differential Diagnosis (chest pain, altered mental status, abdominal pain women, abdominal pain men, vaginal bleeding, musculoskeletal, weakness, fever, dyspnea, syncope, headache, dizziness, GI bleed, back pain, seizure, CVA, palpatations, mental health)? @ -Differential Musculoskeletal: Muscular strain, contusion, ligament sprain, fracture, arthritis, septic arthritis, bursitis, cellulitis, muscle spasm, nerve compression, DVT, arterial occlusion, herpes zoster, electrolyte abnormality, tumor.... This is not meant to be in all inclusive list EKG interpreted by me (3pts min.). @ -None done X-rays interpreted by me (1pt min.). @ -None done CT interpreted by me (1pt min.). @ -None done U/S interpreted by me (1pt. min.). @ -None done What testing was considered but not performed or refused? (CT, X-rays, U/S, labs)? Why? @ -None What meds were considered but not given or refused? Why? @ -None Did you discuss the management of the patient with other professionals (professionals i.e. , PA, BRAZING MACHINE TENDER, lab, RT, psych nurse, licensed social worker, respiratory therapist assistant, teacher, customs and border protection officer, case finishing machine adjuster)? Give summary @ -No Was smoking cessation discussed for >3mins.? @ -No Was critical care preformed (if so, how long)? @ -No Were there social determinants of health that impacted care today? How? (Homelessness, low income, unemployed, alcoholism, drug addiction, transportation, low edu. Level, literacy, decrease access to med. care, usp, rehab)? @ -No Was there de-escalation of care discussed even if they declined (Discuss DNR or withdrawal of care, Hospice)? DNR status @ -No What co-morbidities impacted this encounter? (DM, HTN, Smoking, COPD, CAD, Cancer, CVA, ARF, Chemo, Hep., AIDS, mental health diagnosis, sleep apnea, morbid obesity)? @ -None Was patient admitted / discharged? Hospital course, mention meds given and route, prescriptions, significant lab abnormalities, going to OR and other pertinent info. @ -53-year-old male presents to the emergency department for right-sided body pain. Vital signs upon arrival are within acceptable limits. Laboratory evaluation is unremarkable. Patient given analgesics antiemetics with im provement of symptoms. Patient reevaluated bedside at 8:50 AM on been stable condition. Patient will be discharged. Advised to follow-up with his primary care doctor regarding possible further diagnostic testing. Undiagnosed new problem with uncertain prognosis? @ -No Drug Therapy requiring intensive monitoring for toxicity (Heparin, Nitro, Insulin, Cardizem)? @ -No Were any procedures done? @ -No Diagnosis/symptom? Acute, or Chronic, or Acute on Chronic? Uncomplicated (without systemic symptoms) or Complicated (systemic symptoms)? @ -Right-sided body pain Side effects of treatment? @ -No Exacerbation, Progression, or Severe Exacerbation? @ -No Poses a threat to life or bodily function? How? (Chest pain, [place], [place], pneumonia, PE, COPD, DKA, ARF, appy, cholecystitis, CVA, Diverticulitis, Homicidal, Suicidal, threat to staff... and all critical care pts) @ -No (Shawn Vizcarra) Disposition <Isabelle Hill - Last Filed: 12/01/23 06:29> Is patient prescribed a controlled substance at d/c from ED?: No Time of Disposition: 08:52 <Shawn Vizcarra - Last Filed: 12/01/23 08:52> Clinical Impression: Total body pain Disposition: HOME SELF-CARE Condition: Good Instructions (If sedation given, give patient instructions): Non- pharmacological Pain Management Therapies for Adults (ED) Referrals: Ramya Saul MD [Primary Care Provider] - 1-2 days
[2023-12-01 06:45] LABS: Amylase 51 U/L (30-110); Lipase 109 U/L (23-300)
[2023-12-01] MEDS: ONDANSETRON 4 MG/2 ML VIAL IVP STA (07:48)
[2023-12-01] MEDS: SODIUM CHLORIDE 0.9% 1,000 ML IV STA (07:49)
[2023-12-01] MEDS: MORPHINE SULFATE 4 MG/ML SYRINGE IV STA (07:52)
[2023-12-01] MEDS: ACET/COD 300 MG/30 MG STARTER PACK 6 TAB BTL PO STA (09:14)
[2023-12-01 09:19] VITALS: BP 136/86; PULSE 56; RESP 16
== END 2023-12-01 09:21 | disposition home or self-care (01) ==
LOC: EC 04:56
DX: M79.10 Myalgia, unspecified site (principal); I45.10 Unspecified right bundle-branch block; F17.200 Nicotine dependence, unspecified, uncomplicated; Z88.1 Allergy status to other antibiotic agents; Z88.2 Allergy status to sulfonamides; Z91.040 Latex allergy status; Z88.8 Allergy status to other drugs, medicaments and biological substances; Z88.0 Allergy status to penicillin
CPT/HCPCS: 36415; 93005; 80053; 82150; 83690; 83735; 84484; 85025; 85610; 85730; 71046; 99285; 96374; 96375; 96361; J2270; J2405

== ENCOUNTER 2023-12-02 19:16 | Emergency (ER) | payer MEDICARE, OTHER ==
[2023-12-02 19:38] LABS: Glucose,Whole Blood 217 mg/dL (70-110)
[2023-12-02 19:50] LABS: Basophils % (A) 0 %; Eosinophils # (A) 0.3 k/uL (0-0.7); Eosinophils % (A) 3 %; HCT 45.3 % (39.0-53.0); HGB 15.7 gm/dL (13.0-17.5); Lymphocytes # (A) 1.8 k/uL (1.0-4.8); Lymphocytes % (A) 25 %; MCH 31.3 pg (25.0-35.0); MCHC 34.6 g/dL (31.0-37.0); MCV 90.3 fL (80.0-100.0); Mean Platelet Volume 7.4; Monocytes # (A) 0.4 k/uL (0-1.0); Monocytes % (A) 5 %; Neutrophils # (A) 4.7 k/uL (1.3-7.7); Neutrophils % (A) 64 %; Platelet Count 191 k/uL (150-450); RBC 5.01 m/uL (4.30-5.90); RDW 13.5 % (11.5-15.5); WBC 7.3 k/uL (3.8-10.6)
[2023-12-02 20:02] LABS: INR 0.9 (<1.2)
[2023-12-02 20:10] LABS: ALT 42 U/L (4-49); AST 34 U/L (17-59); African American GFR (CKD) >90 (>60 ml/min/1.73 sqM); Albumin 4.1 g/dL (3.5-5.0); Alkaline Phosphatase 74 U/L (38-126); Amylase 85 U/L (30-110); Anion Gap 5 mmol/L; Blood Urea Nitrogen 13 mg/dL (9-20); Calcium 10.2 mg/dL (8.4-10.2); Carbon Dioxide 26 mmol/L (22-30); Chloride 106 mmol/L (98-107); Glucose 211 mg/dL (74-99); Lipase 403 U/L (23-300); Non-African American GFR(CKD) >90 (>60 ml/min/1.73 sqM); Potassium 4.2 mmol/L (3.5-5.1); Sodium 137 mmol/L (137-145); Total Bilirubin 0.8 mg/dL (0.2-1.3); Total Protein 5.9 g/dL (6.3-8.2)
--- NOTE | 2023-12-02 20:49 | ED ---
General Adult HPI - General Chief complaint: Abdominal Pain Stated complaint: Nausea, Light Headed Time Seen by Provider: 12/02/23 20:49 Source: patient, family Mode of arrival: wheelchair Limitations: no limitations - History of Present Illness Initial comments: 53-year-old male comes in with chief complaint of "not feeling my best". Patient admits to total body pain. That he has had nausea and vomiting. He was seen here last night for the same complaint. He states he has a pack per day smoker and is currently wheezing because he smoked earlier today. No fever. He also states that he knows his blood sugar is up. He has not been taking his insulin because "I just got it today". He also states "it mulligan when I pee" - Related Data Home Medications Medication Instructions Recorded Confirmed Aspirin EC [Ecotrin Low Dose] 81 mg PO DAILY 07/09/20 10/06/23 ARIPiprazole [Abilify] 15 mg PO DAILY 05/26/23 10/06/23 Cholecalciferol [Vitamin D3 (25 25 mcg PO DAILY 05/26/23 10/06/23 Mcg = 1000 Iu)] Melatonin 5 mg PO HS 05/26/23 10/06/23 Albuterol Inhaler [Ventolin Hfa 1 - 2 puff INHALATION RT-QID PRN 08/20/23 10/06/23 Inhaler] Albuterol Nebulized [Ventolin 2.5 mg INHALATION RT-Q6H PRN 08/20/23 10/06/23 Nebulized] Esomeprazole Magnesium [NexIUM] 40 mg PO DAILY 08/20/23 10/06/23 Nitroglycerin Sl Tabs [Nitrostat] 0.4 mg SL Q5M PRN 08/20/23 10/06/23 Budesonide/Formoterol Fumarate 2 puff INHALATION RT-BID 10/06/23 10/06/23 [Symbicort 160-4.5 Mcg Inhaler] Cyclobenzaprine [Flexeril] 5 mg PO BID PRN 10/06/23 10/06/23 Dicyclomine [Bentyl] 10 mg PO TID 10/06/23 10/06/23 Hydrocortisone Cream 1 applic TOPICAL BID 10/06/23 10/06/23 [Hydrocortisone 2.5% Cream] Ibuprofen [Motrin] 600 mg PO Q8HR 10/06/23 10/06/23 Montelukast [Singulair] 10 mg PO DAILY 10/06/23 10/06/23 Pantoprazole [Protonix] 40 mg PO DAILY 10/06/23 10/06/23 Rosuvastatin [Crestor] 10 mg PO HS 10/06/23 10/06/23 hydrOXYzine pamoate [Vistaril] 50 mg PO BID 10/06/23 10/06/23 lisinopriL [Zestril] 2.5 mg PO DAILY 10/06/23 10/06/23 metFORMIN HCL 1,000 mg PO BID 10/06/23 10/06/23 traZODone HCL [Desyrel] 100 mg PO HS 10/06/23 10/06/23 Previous Rx's Medication Instructions Recorded Acetaminophen Tab [Tylenol] 650 mg PO Q6HR PRN tab 08/23/23 Ondansetron Odt [Zofran Odt] 4 mg PO Q8HR PRN #10 tab 08/23/23 Ondansetron Odt [Zofran Odt] 4 mg PO Q8HR PRN #10 tab 10/06/23 Allergies Allergy/AdvReac Type Severity Reaction Status Date / Time dicyclomine HCl [From Bentyl] Allergy Unknown Dyspnea Verified 12/02/23 19:28 latex Allergy Unknown Rash/Hives Verified 12/02/23 19:28 Benzoate Analogues Allergy Unknown Verified 12/02/23 19:28 nitrofurantoin Allergy Nausea Verified 12/02/23 19:28 [From Macrobid] Penicillins Allergy "[place] Verified 12/02/23 19:28 funny" adhesive AdvReac Unknown Itching Verified 12/02/23 19:28 ciprofloxacin AdvReac Unknown Nausea Verified 12/02/23 19:28 Macrolide Antibiotics AdvReac Unknown Nausea Verified 12/02/23 19:28 sulfamethoxazole AdvReac Unknown Unknown Verified 12/02/23 19:28 [From Bactrim] trimethoprim [From Bactrim] AdvReac Unknown Unknown Verified 12/02/23 19:28 diphenhydramine AdvReac Confusion Verified 12/02/23 19:28 [From Benadryl] Review of Systems ROS Statement: Those systems with pertinent positive or pertinent negative responses have been documented in the HPI. ROS Other: All systems not noted in ROS Statement are negative. Past Medical History Past Medical History: Asthma, Chest Pain / Angina, COPD, CVA/TIA, Diabetes Mellitus, GERD/Reflux, Hearing Disorder / Deafness, Hyperlipidemia, Hyperte nsion, Liver Disease, Osteoarthritis (OA), Pneumonia, Seizure Disorder, Sleep Apnea/CPAP/BIPAP Additional Past Medical History / Comment(s): states CVA at 35 yrs old, no weakn ess @ this time. states seizure at 35 yrs old., DDD- back & neck pain., carpal tunnel syndrome., hx. of cyst on kidney, uses cpap., states having abdominal pain with diarrhea and nausea ., Lives in a residential with 2 other people. Has a caregiver.n Has [employer] public guardian. History of Any Multi-Drug Resistant Organisms: None Reported Past Surgical History: Heart Catheterization, Orthopedic Surgery Additional Past Surgical History / Comment(s): Cysts removed, left thumb surgery, colonoscopy 08/24/2019. Skin tags removed from both eyes. Past Anesthesia/Blood Transfusion Reactions: Motion Sickness, Postoperative Nausea & Vomiting (PONV) Past Psychological History: Anxiety, Bipolar, Depression, Schizophrenia Smoking Status: Current every day smoker Past Alcohol Use History: Rare Past Drug Use History: None Reported - Past Family History Brother(s) Family Medical History: Diabetes Mellitus Additional Family Medical History / Comment(s): Patient has 2 brothers. One from complications from diabetes. The second is alive with diabetes. Sister(s) Family Medical History: Cancer Additional Family Medical History / Comment(s): Patient has one sister with breast cancer. Patient does not have any children. Father Family Medical History: Cancer Additional Family Medical History / Comment(s): Father in his 40s or 50s from colon cancer. Mother Family Medical History: Cancer Additional Family Medical History / Comment(s): Mother at age 68 from lung cancer. General Exam - General Exam Comments Initial Comments: Visual Physical Exam Vital signs reviewed General: Well-appearing, nontoxic, no acute distress. Head: Normocephalic, atraumatic Eyes: PERRLA, EOMI ENT: Airway patent Chest: Nonlabored breathing Skin: No visual rash, normal skin tone Neuro: Alert and oriented 3 Musculoskeletal: No gross abnormalities Limitations: no limitations General appearance: alert, in no apparent distress Head exam: Present: atraumatic, normocephalic Eye exam: Present: normal appearance, EOMI Neck exam: Present: normal inspection. Absent: meningismus Respiratory exam: Present: normal lung sounds bilaterally. Absent: respiratory distress, wheezes, rales, rhonchi, stridor Cardiovascular Exam: Present: regular rate, normal rhythm, normal heart sounds. Absent: systolic murmur, diastolic murmur, rubs, gallop, clicks GI/Abdominal exam: Present: soft. Absent: distended, tenderness, guarding, rebound, rigid Extremities exam: Present: normal inspection Neurological exam: Present: alert, oriented X3 Psychiatric exam: Present: normal affect, normal mood Skin exam: Present: warm, dry Course Vital Signs 12/02/23 12/02/23 12/02/23 19:25 23:05 23:12 Temperature 97.5 F L Pulse Rate 73 75 78 Respiratory 18 Rate Blood Pressure 137/87 O2 Sat by Pulse 99 Oximetry 12/03/23 12/03/23 00:54 01:46 Temperature 98.7 F 98.9 F Pulse Rate 77 63 Respiratory 20 19 Rate Blood Pressure 97/62 147/91 O2 Sat by Pulse 99 98 Oximetry Medical Decision Making - Medical Decision Making Was pt. sent in by a medical professional or institution (, PA, ASE MASTER MECHANIC, urgent care, hospital, or jail...) When possible be specific @ -No Did you speak to anyone other than the patient for history (EMS, parent, family, police, friend...)? What history was obtained from this source @ -No Did you review nursing and triage notes (agree or disagree)? Why? @ -I reviewed and agree with nursing and triage notes Were old charts reviewed (outside hosp., previous admission, EMS record, old EKG, old radiological studies, urgent care reports/EKG's, jail records)? Report findings @ -Last night's ER visit was reviewed Differential Diagnosis (chest pain, altered mental status, abdominal pain women, abdominal pain men, vaginal bleeding, weakness, fever, dyspnea, syncope, headache, dizziness, GI bleed, back pain, seizure, CVA, palpatations, mental health, musculoskeletal)? MDM Differential Abdominal Pain Men: Appendicitis, cholecystitis, diverticulosis, ischemic bowel, pancreatitis, hepatitis, UTI, gastroenteritis, AAA, incarcerated hernia, bowel obstruction, constipation, inflammatory bowel, hepatitis, peptic ulcer disease, splenic infarction, perforated viscus, testicular torsion... This is not meant to be an all-inclusive list EKG interpreted by me (3pts min.). @ -As above X-rays interpreted by me (1pt min.). @ -Chest x-ray shows no acute cardiopulmonary process. No significant change from prior study. CT interpreted by me (1pt min.). @ -None done U/S interpreted by me (1pt. min.). @ -None done What testing was considered but not performed or refused? (CT, X-rays, U/S, labs)? Why? @ -None What meds were considered but not given or refused? Why? @ -None Did you discuss the management of the patient with other professionals (professionals i.e. , PA, ASE MASTER MECHANIC, lab, RT, psych nurse, child welfare social worker, grinder operator, teacher, aboriginal home school liaison officer, pillowcase turner)? Give summary @ -No Was smoking cessation discussed for >3mins.? @ -No Was critical care preformed (if so, how long)? @ -No Were there social determinants of health that impacted care today? How? (Homelessness, low income, unemployed, alcoholism, drug addiction, transportation, low edu. Level, literacy, decrease access to med. care, longterm, rehab)? @ -No Was there de-escalation of care discussed even if they declined (Discuss DNR or withdrawal of care, Hospice)? DNR status @ -No What co-morbidities impacted this encounter? (DM, HTN, Smoking, COPD, CAD, Cancer, CVA, ARF, Chemo, Hep., AIDS, mental health diagnosis, sleep apnea, morbid obesity)? @ -None Was patient admitted / discharged? Hospital course, mention meds given and route, prescriptions, significant lab abnormalities, going to OR and other pertinent info. @ -Discharge. 53-year-old male presenting with chief complaint of total body pain. He was seen here last night for same complaint and had a thorough workup. Workup is initiated by triage. Lab work shows no leukocytosis or anemia. Blood sugar is elevated patient states he has not been taking his insulin because "I just got it today". Lipase 403. Troponin negative x 2. Urine shows no infectious process or bleeding. Chest x-ray shows no acute process. On reassessment the patient is resting showing no signs of distress. He is educated on today's findings. Provided with nausea and pain medication for home. Discharged. Follow-up with PCP. Report back to ER with any new or worsening symptoms. Discussed return parameters and answered all questions. Patient conveyed verbal understanding and agreed to the plan. I discussed this case in detail with my attending Dr. Estrada Undiagnosed new problem with uncertain prognosis? @ -No Drug Therapy requiring intensive monitoring for toxicity (Heparin, Nitro, Insu steph, Cardizem)? @ -No Were any procedures done? @ -No Diagnosis/symptom? @ -Total body pain Acute, or Chronic, or Acute on Chronic? @ -Acute Uncomplicated (without systemic symptoms) or Complicated (systemic symptoms)? @ -Uncomplicated Side effects of treatment? @ -No Exacerbation, Progression, or Severe Exacerbation? @ -No Poses a threat to life or bodily function? How? (Chest pain, [place], [place], pneumonia, PE, COPD, DKA, ARF, appy, cholecystitis, CVA, Diverticulitis, Homicidal, Suicidal, threat to staff... and all critical care pts) @ -Low likelihood - Lab Data Result diagrams: 12/02/23 19:39 12/02/23 19:39 Lab Results 12/02/23 12/02/23 12/02/23 Range/Units 19:37 19:39 19:39 WBC 7.3 (3.8-10.6) k/uL RBC 5.01 (4.30-5.90) m/uL Hgb 15.7 (13.0-17.5) gm/dL Hct 45.3 (39.0-53.0) % MCV 90.3 (80.0-100.0) fL MCH 31.3 (25.0-35.0) pg MCHC 34.6 (31.0-37.0) g/dL RDW 13.5 (11.5-15.5) % Plt Count 191 (150-450) k/uL MPV 7.4 Neutrophils % 64 % Lymphocytes % 25 % Monocytes % 5 % Eosinophils % 3 % Basophils % 0 % Neutrophils # 4.7 (1.3-7.7) k/uL Lymphocytes # 1.8 (1.0-4.8) k/uL Monocytes # 0.4 (0-1.0) k/uL Eosinophils # 0.3 (0-0.7) k/uL Basophils # 0.0 (0-0.2) k/uL PT (10.0-12.5) sec INR (<1.2) APTT (22.0-30.0) sec Sodium 137 (137-145) mmol/L Potassium 4.2 (3.5-5.1) mmol/L Chloride 106 (98-107) mmol/L Carbon Dioxide 26 (22-30) mmol/L Anion Gap 5 mmol/L BUN 13 (9-20) mg/dL Creatinine 0.81 (0.66-1.25) mg/dL Est GFR (CKD-EPI)AfAm >90 (>60 ml/min/1.73 sqM) Est GFR (CKD-EPI)NonAf >90 (>60 ml/min/1.73 sqM) Glucose 211 H (74-99) mg/dL POC Glucose (mg/dL) 217 H (70-110) mg/dL POC Glu Hand Plate Stacker ID Ernst Silva Calcium 10.2 (8.4-10.2) mg/dL Total Bilirubin 0.8 (0.2-1.3) mg/dL AST 34 (17-59) U/L ALT 42 (4-49) U/L Alkaline Phosphatase 74 (38-126) U/L Troponin I (0.000-0.034) ng/mL Total Protein 5.9 L (6.3-8.2) g/dL Albumin 4.1 (3.5-5.0) g/dL Amylase 85 (30-110) U/L Lipase 403 H (23-300) U/L Urine Color Urine Appearance (Clear) Urine pH (5.0-8.0) Ur Specific [place] (1.001-1.035) Urine Protein (Negative) Urine Glucose (UA) (Negative) Urine Ketones (Negative) Urine Blood (Negative) Urine Nitrite (Negative) Urine Bilirubin (Negative) Urine Urobilinogen (<2.0) mg/dL Ur Leukocyte Esterase (Negative) Urine RBC (0-5) /hpf Urine WBC (0-5) /hpf Amorphous Sediment (None) /hpf Hyaline Casts (0-2) /lpf Urine Mucus (None) /hpf 12/02/23 12/02/23 12/02/23 Range/Units 19:39 19:39 22:36 WBC (3.8-10.6) k/uL RBC (4.30-5.90) m/uL Hgb (13.0-17.5) gm/dL Hct (39.0-53.0) % MCV (80.0-100.0) fL MCH (25.0-35.0) pg MCHC (31.0-37.0) g/dL RDW (11.5-15.5) % Plt Count (150-450) k/uL MPV Neutrophils % % Lymphocytes % % Monocytes % % Eosinophils % % Basophils % % Neutrophils # (1.3-7.7) k/uL Lymphocytes # (1.0-4.8) k/uL Monocytes # (0-1.0) k/uL Eosinophils # (0-0.7) k/uL Basophils # (0-0.2) k/uL PT 10.0 (10.0-12.5) sec INR 0.9 (<1.2) APTT 22.0 (22.0-30.0) sec Sodium (137-145) mmol/L Potassium (3.5-5.1) mmol/L Chloride (98-107) mmol/L Carbon Dioxide (22-30) mmol/L Anion Gap mmol/L BUN (9-20) mg/dL Creatinine (0.66-1.25) mg/dL Est GFR (CKD-EPI)AfAm (>60 ml/min/1.73 sqM) Est GFR (CKD-EPI)NonAf (>60 ml/min/1.73 sqM) Glucose (74-99) mg/dL POC Glucose (mg/dL) (70-110) mg/dL POC Glu Hand Plate Stacker ID Calcium (8.4-10.2) mg/dL Total Bilirubin (0.2-1.3) mg/dL AST (17-59) U/L ALT (4-49) U/L Alkaline Phosphatase (38-126) U/L Troponin I <0.012 <0.012 (0.000-0.034) ng/mL Total Protein (6.3-8.2) g/dL Albumin (3.5-5.0) g/dL Amylase (30-110) U/L Lipase (23-300) U/L Urine Color Urine Appearance (Clear) Urine pH (5.0-8.0) Ur Specific [place] (1.001-1.035) Urine Protein (Negative) Urine Glucose (UA) (Negative) Urine Ketones (Negative) Urine Blood (Negative) Urine Nitrite (Negative) Urine Bilirubin (Negative) Urine Urobilinogen (<2.0) mg/dL Ur Leukocyte Esterase (Negative) Urine RBC (0-5) /hpf Urine WBC (0-5) /hpf Amorphous Sediment (None) /hpf Hyaline Casts (0-2) /lpf Urine Mucus (None) /hpf 12/03/23 Range/Units 23:59 WBC (3.8-10.6) k/uL RBC (4.30-5.90) m/uL Hgb (13.0-17.5) gm/dL Hct (39.0-53.0) % MCV (80.0-100.0) fL MCH (25.0-35.0) pg MCHC (31.0-37.0) g/dL RDW (11.5-15.5) % Plt Count (150-450) k/uL MPV Neutrophils % % Lymphocytes % % Monocytes % % Eosinophils % % Basophils % % Neutrophils # (1.3-7.7) k/uL Lymphocytes # (1.0-4.8) k/uL Monocytes # (0-1.0) k/uL Eosinophils # (0-0.7) k/uL Basophils # (0-0.2) k/uL PT (10.0-12.5) sec INR (<1.2) APTT (22.0-30.0) sec Sodium (137-145) mmol/L Potassium (3.5-5.1) mmol/L Chloride (98-107) mmol/L Carbon Dioxide (22-30) mmol/L Anion Gap mmol/L BUN (9-20) mg/dL Creatinine (0.66-1.25) mg/dL Est GFR (CKD-EPI)AfAm (>60 ml/min/1.73 sqM) Est GFR (CKD-EPI)NonAf (>60 ml/min/1.73 sqM) Glucose (74-99) mg/dL POC Glucose (mg/dL) (70-110) mg/dL POC Glu Hand Plate Stacker ID Calcium (8.4-10.2) mg/dL Total Bilirubin (0.2-1.3) mg/dL AST (17-59) U/L ALT (4-49) U/L Alkaline Phosphatase (38-126) U/L Troponin I (0.000-0.034) ng/mL Total Protein (6.3-8.2) g/dL Albumin (3.5-5.0) g/dL Amylase (30-110) U/L Lipase (23-300) U/L Urine Color Light Yellow Urine Appearance Clear (Clear) Urine pH 7.0 (5.0-8.0) Ur Specific [place] 1.015 (1.001-1.035) Urine Protein Negative (Negative) Urine Glucose (UA) 2+ H (Negative) Urine Ketones Negative (Negative) Urine Blood Negative (Negative) Urine Nitrite Negative (Negative) Urine Bilirubin Negative (Negative) Urine Urobilinogen 4.0 (<2.0) mg/dL Ur Leukocyte Esterase Small H (Negative) Urine RBC <1 (0-5) /hpf Urine WBC 4 (0-5) /hpf Amorphous Sediment Occasional H (None) /hpf Hyaline Casts 1 (0-2) /lpf Urine Mucus Rare H (None) /hpf Disposition Clinical Impression: Total body pain Disposition: HOME SELF-CARE Condition: Good Additional Instructions: Follow-up with PCP. Report back to ER with any new or worsening symptoms. Is patient prescribed a controlled substance at d/c from ED?: No Referrals: Ramya Saul MD [Primary Care Provider] - 1-2 days Time of Disposition: 01:04
--- NOTE | 2023-12-02 22:36 | XR ---
EXAMINATION TYPE: XR chest 2V DATE OF EXAM: 12/02/2023 COMPARISON: Prior chest x-ray 1 day earlier. HISTORY: Chest wall pain. TECHNIQUE: Frontal and lateral views of the chest are obtained. FINDINGS: Improved inspiration on current study. Underlying emphysematous changes suspected. There is no focal air space opacity, pleural effusion, or pneumothorax seen. The cardiac silhouette size is stable and within normal limits. The osseous structures are intact. Rim calcified splenic lesion le ft upper quadrant redemonstrated. IMPRESSION: No acute cardiopulmonary process. No significant change from prior study.
[2023-12-02] MEDS: SODIUM CHLORIDE 0.9% 1,000 ML IV ONE (22:46)
[2023-12-02] MEDS: KETOROLAC 15 MG/ML 1 ML VIAL IVP STA (22:47)
[2023-12-02] MEDS: IPRATROPIUM-ALBUTEROL 3 ML NEB INHALATION STA (23:04)
[2023-12-03 00:51] LABS: Amorphous Sediment,Urine Occasional /hpf; Appearance,Urine Clear (Clear); Bilirubin,Urine Negative (Negative); Blood,Urine Negative (Negative); Color,Urine Light Yellow; Glucose,Urine (UA) 2+ (Negative); Hyaline Casts,Urine 1 /lpf (0-2); Ketones,Urine Negative (Negative); Leukocyte Esterase,Urine Small (Negative); Mucus,Urine Rare /hpf; Nitrite,Urine Negative (Negative); Protein,Urine Negative (Negative); RBC,Urine <1 /hpf (0-5); Specific Gravity,Urine 1.015 (1.001-1.035); WBC,Urine 4 /hpf (0-5)
[2023-12-03] MEDS: ONDANSETRON 4 MG ODT STARTER PACK 2 TAB BTL PO STA (01:38)
[2023-12-03] MEDS: ACET/COD 300 MG/30 MG STARTER PACK 6 TAB BTL PO STA (01:38)
[2023-12-03 01:48] VITALS: BP 147/91; PULSE 63; RESP 19; TEMP 98.9
== END 2023-12-03 01:45 | disposition home or self-care (01) ==
LOC: EC 19:16
DX: R52 Pain, unspecified (principal); F17.200 Nicotine dependence, unspecified, uncomplicated; Z91.048 Other nonmedicinal substance allergy status; Z91.040 Latex allergy status; Z88.0 Allergy status to penicillin; Z88.8 Allergy status to other drugs, medicaments and biological substances; Z88.2 Allergy status to sulfonamides
CPT/HCPCS: 36415; 94640; 93005; 80053; 82150; 83690; 84484; 85025; 85610; 85730; 71046; 99284; 96374; 96361 ×3; J1885; 81001

== ENCOUNTER 2023-12-04 07:19 | Emergency (ER) | payer MEDICARE, OTHER ==
[2023-12-04 07:29] VITALS: RESP 16; TEMP 97.8
[2023-12-04 07:29] LABS: Glucose,Whole Blood 184 mg/dL (70-110)
--- NOTE | 2023-12-04 07:40 | ED ---
General Adult HPI - General Chief complaint: Nausea/Vomiting/Diarrhea Stated complaint: DM can't eat or drink Time Seen by Provider: 12/04/23 07:30 Source: patient, RN notes reviewed, old records reviewed Mode of arrival: ambulatory Limitations: no limitations - History of Present Illness Initial comments: This is a 53-year-old male who presents to the emergency department stating he cannot keep any food down. Patient states continues to vomit. Patient is currently chewing gum and is in no distress. Patient denies any chest pain difficulty breathing. Patient has any fever chills. Patient is any diarrhea. Patient has abdominal pain patient states he is still nauseous. Patient states he takes Zofran at home but it has not helped. Patient only took 1 dose of Zofran. - Related Data Home Medications Medication Instructions Recorded Confirmed Aspirin EC [Ecotrin Low Dose] 81 mg PO DAILY 07/09/20 10/06/23 ARIPiprazole [Abilify] 15 mg PO DAILY 05/26/23 10/06/23 Cholecalciferol [Vitamin D3 (25 25 mcg PO DAILY 05/26/23 10/06/23 Mcg = 1000 Iu)] Melatonin 5 mg PO HS 05/26/23 10/06/23 Albuterol Inhaler [Ventolin Hfa 1 - 2 puff INHALATION RT-QID PRN 08/20/23 10/06/23 Inhaler] Albuterol Nebulized [Ventolin 2.5 mg INHALATION RT-Q6H PRN 08/20/23 10/06/23 Nebulized] Esomeprazole Magnesium [NexIUM] 40 mg PO DAILY 08/20/23 10/06/23 Nitroglycerin Sl Tabs [Nitrostat] 0.4 mg SL Q5M PRN 08/20/23 10/06/23 Budesonide/Formoterol Fumarate 2 puff INHALATION RT-BID 10/06/23 10/06/23 [Symbicort 160-4.5 Mcg Inhaler] Cyclobenzaprine [Flexeril] 5 mg PO BID PRN 10/06/23 10/06/23 Dicyclomine [Bentyl] 10 mg PO TID 10/06/23 10/06/23 Hydrocortisone Cream 1 applic TOPICAL BID 10/06/23 10/06/23 [Hydrocortisone 2.5% Cream] Ibuprofen [Motrin] 600 mg PO Q8HR 10/06/23 10/06/23 Montelukast [Singulair] 10 mg PO DAILY 10/06/23 10/06/23 Pantoprazole [Protonix] 40 mg PO DAILY 10/06/23 10/06/23 Rosuvastatin [Crestor] 10 mg PO HS 10/06/23 10/06/23 hydrOXYzine pamoate [Vistaril] 50 mg PO BID 10/06/23 10/06/23 lisinopriL [Zestril] 2.5 mg PO DAILY 10/06/23 10/06/23 metFORMIN HCL 1,000 mg PO BID 10/06/23 10/06/23 traZODone HCL [Desyrel] 100 mg PO HS 10/06/23 10/06/23 Previous Rx's Medication Instructions Recorded Acetaminophen Tab [Tylenol] 650 mg PO Q6HR PRN tab 08/23/23 Ondansetron Odt [Zofran Odt] 4 mg PO Q8HR PRN #10 tab 08/23/23 Ondansetron Odt [Zofran Odt] 4 mg PO Q8HR PRN #10 tab 10/06/23 Allergies Allergy/AdvReac Type Severity Reaction Status Date / Time dicyclomine HCl [From Bentyl] Allergy Unknown Dyspnea Verified 12/02/23 19:28 latex Allergy Unknown Rash/Hives Verified 12/02/23 19:28 Benzoate Analogues Allergy Unknown Verified 12/02/23 19:28 nitrofurantoin Allergy Nausea Verified 12/02/23 19:28 [From Macrobid] Penicillins Allergy "[place] Verified 12/02/23 19:28 funny" adhesive AdvReac Unknown Itching Verified 12/02/23 19:28 ciprofloxacin AdvReac Unknown Nausea Verified 12/02/23 19:28 Macrolide Antibiotics AdvReac Unknown Nausea Verified 12/02/23 19:28 sulfamethoxazole AdvReac Unknown Unknown Verified 12/02/23 19:28 [From Bactrim] trimethoprim [From Bactrim] AdvReac Unknown Unknown Verified 12/02/23 19:28 diphenhydramine AdvReac Confusion Verified 12/02/23 19:28 [From Benadryl] Review of Systems ROS Statement: Those systems with pertinent positive or pertinent negative responses have been documented in the HPI. ROS Other: All systems not noted in ROS Statement are negative. Past Medical History Past Medical History: Asthma, Chest Pain / Angina, COPD, CVA/TIA, Diabetes Mellitus, GERD/Reflux, Hearing Disorder / Deafness, Hyperlipidemia, Hypertension, Liver Disease, Osteoarthritis (OA), Pneumonia, Seizure Disorder, Sleep Apnea/CPAP/BIPAP Additional Past Medical History / Comment(s): states CVA at 35 yrs old, no weakness @ this time. states seizure at 35 yrs old., DDD- back & neck pain., carpal tunnel syndrome., hx. of cyst on kidney, uses cpap., states having abdominal pain with diarrhea and nausea ., Lives in a halfway with 2 other people. Has a caregiver.n Has [employer] public guardian. History of Any Multi-Drug Resistant Organisms: None Reported Past Surgical History: Heart Catheterization, Orthopedic Surgery Additional Past Surgical History / Comment(s): Cysts removed, left thumb surgery, colonoscopy 08/24/2019. Skin tags removed from both eyes. Past Anesthesia/Blood Transfusion Reactions: Motion Sickness, Postoperative Nausea & Vomiting (PONV) Past Psychological History: Anxiety, Bipolar, Depression, Schizophrenia Smoking Status: Current every day smoker Past Alcohol Use History: Rare Past Drug Use History: None Reported - Past Family History Brother(s) Family Medical History: Diabetes Mellitus Additional Family Medical History / Comment(s): Patient has 2 brothers. One d from complications from diabetes. The second is alive with diabetes. Sister(s) Family Medical History: Cancer Additional Family Medical History / Comment(s): Patient has one sister with breast cancer. Patient does not have any children. Father Family Medical History: Cancer Additional Family Medical History / Comment(s): Father in his 40s or 50s from colon cancer. Mother Family Medical History: Cancer Additional Family Medical History / Comment(s): Mother at age 68 from lung cancer. General Exam - General Exam Comments Initial Comments: GENERAL: Patient is well-developed and well-nourished. Patient is nontoxic and well- hydrated and is in no acute distress. ENT: Neck is soft and supple. No significant lymphadenopathy is noted. Oropharynx is clear. Moist mucous membranes. Neck has full range of motion without eliciting any pain. EYES: The sclera were anicteric and conjunctiva were pink and moist. Extraocular movements were intact and pupils were equal round and reactive to light. Eyelids were unremarkable. PULMONARY: Unlabored respirations. Good breath sounds bilaterally. No audible rales rhonchi or wheezing was noted. CARDIOVASCULAR: There is a regular rate and rhythm without any murmurs gallops or rubs. ABDOMEN: Soft and nontender with normal bowel sounds. SKIN: Skin is clear with no lesions or rashes and otherwise unremarkable. NEUROLOGIC: Patient is alert and oriented x3. Cranial nerves II through XII are grossly intact. Motor and sensory are also intact. Normal speech, volume and content. Symmetrical smile. MUSCULOSKELETAL: Normal extremities with adequate strength and full range of motion. LYMPHATICS: No significant lymphadenopathy is noted PSYCHIATRIC: Normal psychiatric evaluation. Limitations: no limitations Course Vital Signs 12/04/23 07:26 Temperature 97.8 F Pulse Rate 58 L Respiratory 16 Rate Blood Pressure 109/72 O2 Sat by Pulse 99 Oximetry Medical Decision Making - Medical Decision Making Was pt. sent in by a medical professional or institution (, PA, DEWER, urgent care, hospital, or longterm...) When possible be specific @ -No Did you speak to anyone other than the patient for history (EMS, parent, family, police, friend...)? What history was obtained from this source @ -No Did you review nursing and triage notes (agree or disagree)? Why? @ -I reviewed and agree with nursing and triage notes Were old charts reviewed (outside hosp., previous admission, EMS record, old EKG, old radiological studies, urgent care reports/EKG's, longterm records)? Report findings @ -No old charts were reviewed Differential Diagnosis (chest pain, altered mental status, abdominal pain women, abdominal pain men, vaginal bleeding, weakness, fever, dyspnea, syncope, headache, dizziness, GI bleed, back pain, seizure, CVA, palpatations, mental health, musculoskeletal)? @ -Gastroenteritis, malingering, gastritis, this is not an all-inclusive list EKG interpreted by me (3pts min.). @ -As above X-rays interpreted by me (1pt min.). @ -None done CT interpreted by me (1pt min.). @ -None done U/S interpreted by me (1pt. min.). @ -None done What testing was considered but not performed or refused? (CT, X-rays, U/S, l abs)? Why? @ -None What meds were considered but not given or refused? Why? @ -None Did you discuss the management of the patient with other professionals (professionals i.e. , PA, DEWER, lab, RT, psych nurse, nephrology social worker, surgical nurse practitioner, teacher, artillery officer, case monitor)? Give summary @ -No Was smoking cessation discussed for >3mins.? @ -No Was critical care preformed (if so, how long)? @ -No Were there social determinants of health that impacted care today? How? (Homelessness, low income, unemployed, alcoholism, drug addiction, transportation, low edu. Level, literacy, decrease access to med. care, group home, rehab)? @ -No Was there de-escalation of care discussed even if they declined (Discuss DNR or withdrawal of care, Hospice)? DNR status @ -No What co-morbidities impacted this encounter? (DM, HTN, Smoking, COPD, CAD, Cancer, CVA, ARF, Chemo, Hep., AIDS, mental health diagnosis, sleep apnea, morbid obesity)? @ -None Was patient admitted / discharged? Hospital course, mention meds given and route, prescriptions, significant lab abnormalities, going to OR and other pertinent info. @ -Patient had no abdominal pain. Patient was in no distress. Patient's mucous membranes were moist. Patient vital signs were normal. Undiagnosed new problem with uncertain prognosis? @ -No Drug Therapy requiring intensive monitoring for toxicity (Heparin, Nitro, Insulin, Cardizem)? @ -No Were any procedures done? @ -No Diagnosis/symptom? @ -Acute vomiting Acute, or Chronic, or Acute on Chronic? @ -Acute Uncomplicated (without systemic symptoms) or Complicated (systemic symptoms)? @ -Uncomplicated Side effects of treatment? @ -No Exacerbation, Progression, or Severe Exacerbation? @ -No Poses a threat to life or bodily function? How? (Chest pain, [place], [place], pneumonia, PE, COPD, DKA, ARF, appy, cholecystitis, CVA, Diverticulitis, Homicidal, Suicidal, threat to staff... and all critical care pts) @ -No - Lab Data Lab Results 12/04/23 Range/Units 07:28 POC Glucose (mg/dL) 184 H (70-110) mg/dL POC Glu Watch Supervisor Sondra Emmanuel Disposition Clinical Impression: Vomiting Disposition: HOME SELF-CARE Condition: Good Instructions (If sedation given, give patient instructions): Acute Nausea and Vomiting (ED) Is patient prescribed a controlled substance at d/c from ED?: No Referrals: Ramya Saul MD [Primary Care Provider] - 1-2 days Time of Disposition: 07:39
[2023-12-04] MEDS: droPERidol 5 MG/2 ML VIAL IM ONE (08:00)
[2023-12-04 08:17] VITALS: BP 118/83; PULSE 60
== END 2023-12-04 08:17 | disposition home or self-care (01) ==
LOC: EC 07:19
DX: R11.2 Nausea with vomiting, unspecified (principal); F17.200 Nicotine dependence, unspecified, uncomplicated; Z91.040 Latex allergy status; Z88.1 Allergy status to other antibiotic agents; Z88.0 Allergy status to penicillin; Z88.8 Allergy status to other drugs, medicaments and biological substances; Z88.2 Allergy status to sulfonamides
CPT/HCPCS: 36415; 99284; 96372; J1790

== ENCOUNTER 2023-12-06 09:08 | Inpatient (IN) | payer MEDICARE, MEDICAID ==
--- NOTE | 2023-12-06 09:23 | ED ---
General Adult HPI - General Chief complaint: Psychiatric Symptoms Stated complaint: Mental Health Time Seen by Provider: 12/06/23 09:11 Source: patient, RN notes reviewed Mode of arrival: wheelchair Limitations: no limitations - History of Present Illness Initial comments: Patient is a 53-year-old male present to the emergency department for mental health evaluation. Patient states he has problems with his residence. Patient states the staff there is very hard on him. Patient states he just feels like he wants to go somewhere and . Patient denies alcohol or street drug use. No physical complaints. - Related Data Home Medications Medication Instructions Recorded Confirmed Aspirin EC [Ecotrin Low Dose] 81 mg PO DAILY 07/09/20 12/06/23 ARIPiprazole [Abilify] 15 mg PO DAILY 05/26/23 12/06/23 Melatonin 5 mg PO HS 05/26/23 12/06/23 Albuterol Inhaler [Ventolin Hfa 1 - 2 puff INHALATION RT-QID PRN 08/20/23 12/06/23 Inhaler] Albuterol Nebulized [Ventolin 2.5 mg INHALATION RT-Q6H PRN 08/20/23 12/06/23 Nebulized] Esomeprazole Magnesium [NexIUM] 40 mg PO DAILY 08/20/23 12/06/23 Nitroglycerin Sl Tabs [Nitrostat] 0.4 mg SL Q5M PRN 08/20/23 12/06/23 Montelukast [Singulair] 10 mg PO HS 10/06/23 12/06/23 lisinopriL [Zestril] 2.5 mg PO DAILY 10/06/23 12/06/23 metFORMIN HCL 1,000 mg PO BID 10/06/23 12/06/23 traZODone HCL [Desyrel] 100 mg PO HS 10/06/23 12/06/23 Atorvastatin [Lipitor] 10 mg PO HS 12/06/23 12/06/23 Cholecalciferol (Vitamin D3) 50 mcg PO DAILY 12/06/23 12/06/23 [Vitamin D3 (50 Mcg = 2000 Iu)] Doxycycline Hyclate 100 mg PO BID 12/06/23 12/06/23 Famotidine [Pepcid] 20 mg PO BID PRN 12/06/23 12/06/23 Ibuprofen [Motrin] 800 mg PO Q8H PRN 12/06/23 12/06/23 Insulin Glargine,Hum.rec.anlog 10 units SQ HS 12/06/23 12/06/23 [Lantus Solostar Pen] Meloxicam [Mobic] 7.5 mg PO DAILY PRN 12/06/23 12/06/23 Metoclopramide [Reglan] 5 mg PO AC-TID 12/06/23 12/06/23 Ondansetron Odt [Zofran Odt] 4 mg PO BID PRN 12/06/23 12/06/23 Varenicline [Chantix Starter Pack] 0.5 - 1 mg PO DIRECTED 12/06/23 12/06/23 Allergies Allergy/AdvReac Type Severity Reaction Status Date / Time dicyclomine HCl [From Bentyl] Allergy Unknown Dyspnea Verified 12/06/23 10:54 latex Allergy Unknown Rash/Hives Verified 12/06/23 10:54 Benzoate Analogues Allergy Unknown Verified 12/06/23 10:54 nitrofurantoin Allergy Nausea Verified 12/06/23 10:54 [From Macrobid] Penicillins Allergy "[place] Verified 12/06/23 10:54 funny" adhesive AdvReac Unknown Itching Verified 12/06/23 10:54 ciprofloxacin AdvReac Unknown Nausea Verified 12/06/23 10:54 Macrolide Antibiotics AdvReac Unknown Nausea Verified 12/06/23 10:54 sulfamethoxazole AdvReac Unknown Unknown Verified 12/06/23 10:54 [From Bactrim] trimethoprim [From Bactrim] AdvReac Unknown Unknown Verified 12/06/23 10:54 diphenhydramine AdvReac Confusion Verified 12/06/23 10:54 [From Benadryl] Review of Systems ROS Statement: Those systems with pertinent positive or pertinent negative responses have been documented in the HPI. ROS Other: All systems not noted in ROS Statement are negative. Constitutional: Denies: fever Eyes: Denies: eye pain ENT: Denies: ear pain Respiratory: Denies: cough Cardiovascular: Denies: chest pain Psychiatric: Reports: as per HPI, depression Past Medical History Past Medical History: Asthma, Chest Pain / Angina, COPD, CVA/TIA, Diabetes Mellitus, GERD/Reflux, Hearing Disorder / Deafness, Hyperlipidemia, Hypertension, Liver Disease, Osteoarthritis (OA), Pneumonia, Seizure Disorder, Sleep Apnea/CPAP/BIPAP Additional Past Medical History / Comment(s): states CVA at 35 yrs old, no weakness @ this time. states seizure at 35 yrs old., DDD- back & neck pain., carpal tunnel syndrome., hx. of cyst on kidney, uses cpap., states having abdominal pain with diarrhea and nausea ., Lives in a custodial with 2 other people. Has a caregiver.n Has [employer] public guardian. History of Any Multi-Drug Resistant Organisms: None Reported Past Surgical History: Heart Catheterization, Orthopedic Surgery Additional Past Surgical History / Comment(s): Cysts removed, left thumb surgery, colonoscopy 08/24/2019. Skin tags removed from both eyes. Past Anesthesia/Blood Transfusion Reactions: Motion Sickness, Postoperative Nausea & Vomiting (PONV) Past Psychological History: Anxiety, Bipolar, Depression, Schizophrenia Smoking Status: Current every day smoker Past Alcohol Use History: Rare Past Drug Use History: None Reported - Past Family History Brother(s) Family Medical History: Diabetes Mellitus Additional Family Medical History / Comment(s): Patient has 2 brothers. One from complications from diabetes. The second is alive with diabetes. Sister(s) Family Medical History: Cancer Additional Family Medical History / Comment(s): Patient has one sister with breast cancer. Patient does not have any children. Father Family Medical History: Cancer Additional Family Medical History / Comment(s): Father in his 40s or 50s from colon cancer. Mother Family Medical History: Cancer Additional Family Medical History / Comment(s): Mother at age 68 from lung cancer. General Exam Limitations: no limitations General appearance: alert, in no apparent distress Head exam: Present: normocephalic Eye exam: Present: normal appearance Neck exam: Present: normal inspection Respiratory exam: Present: normal lung sounds bilaterally Cardiovascular Exam: Present: regular rate, normal rhythm GI/Abdominal exam: Present: soft. Absent: tenderness Extremities exam: Present: normal inspection Neurological exam: Present: alert Psychiatric exam: Present: depressed Skin exam: Present: normal color Course Vital Signs 12/06/23 09:10 Temperature 97.9 F Pulse Rate 63 Respiratory 18 Rate Blood Pressure 115/75 O2 Sat by Pulse 100 Oximetry Medical Decision Making - Medical Decision Making Was pt. sent in by a medical professional or institution (, PA, FORESTRY WORKER, urgent care, hospital, or long-term...) When possible be specific @ -Patient comes from custodial Did you speak to anyone other than the patient for history (EMS, parent, family, police, friend...)? What history was obtained from this source @ -No Did you review nursing and triage notes (agree or disagree)? Why? @ -I reviewed and agree with nursing and triage notes Were old charts reviewed (outside hosp., previous admission, EMS record, old EKG, old radiological studies, urgent care reports/EKG's, long-term records)? Report findings @ -No old charts were reviewed Differential Diagnosis (chest pain, altered mental status, abdominal pain women, abdominal pain men, vaginal bleeding, weakness, fever, dyspnea, syncope, headache, dizziness, GI bleed, back pain, seizure, CVA, palpatations, mental health, musculoskeletal)? @ -Differential Mental Health Depression, anxiety, bipolar, psychosis, schizophrenia, borderline personality, situational depression, adjustment disorder, behavioral disorder, brain tumor, malingering, substance abuse, encephalopathy, medication reaction, dementia, hypothyroidism, degenerative neurologic disorder, lupus.... This is not meant to be all-inclusive list EKG interpreted by me (3pts min.). @ -As above X-rays interpreted by me (1pt min.). @ -None done CT interpreted by me (1pt min.). @ -None done U/S interpreted by me (1pt. min.). @ -None done What testing was considered but not performed or refused? (CT, X-rays, U/S, labs)? Why? @ -None What meds were considered but not given or refused? Why? @ -None Did you discuss the management of the patient with other professionals (professionals i.e. , PA, FORESTRY WORKER, lab, RT, psych nurse, oncology social work, electric distribution engineer, teacher, armored vehicle officer, rn case manager hospice)? Give summary @ -Mental health nurse with plans for admission Was smoking cessation discussed for >3mins.? @ -No Was critical care preformed (if so, how long)? @ -No Were there social determinants of health that impacted care today? How? (Homelessness, low income, unemployed, alcoholism, drug addiction, transportation, low edu. Level, literacy, decrease access to med. care, ch[facility], rehab)? @ -No Was there de-escalation of care discussed even if they declined (Discuss DNR or withdrawal of care, Hospice)? DNR status @ -No What co-morbidities impacted this encounter? (DM, HTN, Smoking, COPD, CAD, Cancer, CVA, ARF, Chemo, Hep., AIDS, mental health diagnosis, sleep apnea, morbid obesity)? @ -None Was patient admitted / discharged? Hospital course, mention meds given and route, prescriptions, significant lab abnormalities, going to OR and other pertinent info. @ -Patient will be admitted for psychiatric care Undiagnosed new problem with uncertain prognosis? @ -No Drug Therapy requiring intensive monitoring for toxicity (Heparin, Nitro, Insulin, Cardizem)? @ -No Were any procedures done? @ -No Diagnosis/symptom? @ -Depression Acute, or Chronic, or Acute on Chronic? @ -Acute on chronic Uncomplicated (without systemic symptoms) or Complicated (systemic symptoms)? @ -Default Side effects of treatment? @ -No Exacerbation, Progression, or Severe Exacerbation? @ -No Poses a threat to life or bodily function? How? (Chest pain, [place], [place], pneumonia, PE, COPD, DKA, ARF, appy, cholecystitis, CVA, Diverticulitis, Homicidal, Suicidal, threat to staff... and all critical care pts) @ -No - Lab Data Lab Results 12/06/23 Range/Units 10:19 Urine Opiates Screen Not Detected (NotDetected) Ur Oxycodone Screen Not Detected (NotDetected) Urine Methadone Screen Not Detected (NotDetected) Ur Barbiturates Screen Not Detected (NotDetected) U Tricyclic Antidepress Not Detected (NotDetected) Ur Phencyclidine Scrn Not Detected (NotDetected) Ur Amphetamines Screen Not Detected (NotDetected) U Methamphetamines Scrn Not Detected (NotDetected) U Benzodiazepines Scrn Not Detected (NotDetected) Urine Cocaine Screen Not Detected (NotDetected) U Marijuana (THC) Screen Not Detected (NotDetected) Disposition Clinical Impression: Depression Disposition: TRANSFER TO PSYCH HOSP/UNIT Is patient prescribed a controlled substance at d/c from ED?: No Referrals: Ramya Saul MD [Primary Care Provider] - 1-2 days Time of Disposition: 15:24
[2023-12-06 10:50] LABS: Amphetamine Screen,Urine Not Detected (NotDetected); Barbiturate Screen,Urine Not Detected (NotDetected); Benzodiazepines Screen,Urine Not Detected (NotDetected); Cocaine Screen,Urine Not Detected (NotDetected); Methadone Screen, Urine Not Detected (NotDetected); Opiate Screen,Urine Not Detected (NotDetected); Oxycodone Screen, Urine Not Detected (NotDetected); Phencyclidine Screen,Urine Not Detected (NotDetected); Tricyclic Antidepressant,Urine Not Detected (NotDetected); Urn Cannabinoid Scrn Not Detected (NotDetected)
[2023-12-06 16:10] LABS: Glucose,Whole Blood 130 mg/dL (70-110)
[2023-12-06] MEDS ORDERED: NON FORMULARY DRUG (Albuterol Inhaler 90 MCG Puff) INHALATION PRN (20:10)
[2023-12-06] MEDS ORDERED: NITROGLYCERIN SL TABS 0.4 MG TAB SUBLINGUAL PRN (20:10)
[2023-12-06] MEDS ORDERED: MELOXICAM 7.5 MG TAB PO PRN (20:10)
[2023-12-06] MEDS ORDERED: LORazepam 2 MG/ML INJ IM PRN (20:15)
[2023-12-06] MEDS ORDERED: MAGNESIUM HYDROXIDE 2,400 MG/30 ML CUP PO PRN (20:15)
[2023-12-06 20:42] LABS: Appearance,Urine Clear (Clear); Bilirubin,Urine Negative (Negative); Blood,Urine Negative (Negative); Color,Urine Colorless; Glucose,Urine (UA) Negative (Negative); Ketones,Urine Negative (Negative); Leukocyte Esterase,Urine Negative (Negative); Nitrite,Urine Negative (Negative); PH, Urine 5.5 (5.0-8.0); Protein,Urine Negative (Negative); Specific Gravity,Urine 1.004 (1.001-1.035); Urobilinogen,Urine <2.0 mg/dL (<2.0)
[2023-12-06] MEDS: ATORVASTATIN 10 MG TAB PO SCH (21:22)
[2023-12-06] MEDS: traZODone HCL 100 MG TAB PO SCH (21:22)
[2023-12-06] MEDS: metFORMIN 500 MG TAB PO SCH (21:22)
[2023-12-06] MEDS: MELATONIN 5 MG TABLET PO SCH (21:22)
[2023-12-06] MEDS: MONTELUKAST 10 MG TAB PO SCH (21:22)
[2023-12-06] MEDS: LORazepam 1 MG TAB PO PRN (21:26)
[2023-12-06] MEDS: ONDANSETRON ODT 4 MG TAB PO PRN (21:28)
[2023-12-06 21:31] LABS: Glucose,Whole Blood 207 mg/dL (70-110)
[2023-12-06] MEDS: DOXYCYCLINE 100 MG CAP PO SCH (22:09)
[2023-12-06] MEDS: ALBUTEROL INHALER 60 PUFF/8 GM INHALER (MHU) INHALATION PRN (22:10)
[2023-12-06] MEDS: INSULIN DETEMIR (LEVEMIR) 100 UNIT/ML SYR SQ SCH (22:11)
[2023-12-07 07:16] LABS: Basophils % (A) 0 %; Eosinophils # (A) 0.2 k/uL (0-0.7); Eosinophils % (A) 3 %; HCT 46.5 % (39.0-53.0); HGB 15.3 gm/dL (13.0-17.5); Lymphocytes # (A) 1.1 k/uL (1.0-4.8); Lymphocytes % (A) 19 %; MCH 30.9 pg (25.0-35.0); MCV 93.6 fL (80.0-100.0); Mean Platelet Volume 7.3; Monocytes # (A) 0.4 k/uL (0-1.0); Monocytes % (A) 6 %; Neutrophils # (A) 4.1 k/uL (1.3-7.7); Neutrophils % (A) 69 %; Platelet Count 173 k/uL (150-450); RBC 4.96 m/uL (4.30-5.90); RDW 13.4 % (11.5-15.5); WBC 5.9 k/uL (3.8-10.6)
[2023-12-07 07:50] LABS: Glucose,Whole Blood 141 mg/dL (70-110)
[2023-12-07 07:52] LABS: ALT 45 U/L (4-49); AST 30 U/L (17-59); African American GFR (CKD) >90 (>60 ml/min/1.73 sqM); Albumin 3.6 g/dL (3.5-5.0); Alkaline Phosphatase 61 U/L (38-126); Anion Gap 2 mmol/L; Blood Urea Nitrogen 13 mg/dL (9-20); Carbon Dioxide 27 mmol/L (22-30); Chloride 112 mmol/L (98-107); Glucose 124 mg/dL (74-99); Non-African American GFR(CKD) >90 (>60 ml/min/1.73 sqM); Potassium 4.3 mmol/L (3.5-5.1); Sodium 141 mmol/L (137-145); Total Bilirubin 0.7 mg/dL (0.2-1.3); Total Protein 5.6 g/dL (6.3-8.2)
[2023-12-07] MEDS: NICOTINE 14MG/24HR PATCH TRANSDERM SCH (08:25)
[2023-12-07] MEDS: ASPIRIN 81 MG PO SCH (08:25)
[2023-12-07] MEDS: PANTOPRAZOLE 40 MG TABLET PO SCH (08:26)
[2023-12-07] MEDS: CHOLECALCIFEROL 25 MCG (1000 IU) TABLET PO SCH (08:26)
[2023-12-07] MEDS: ARIPiprazole 15 MG TAB PO SCH (08:26)
[2023-12-07] MEDS: METOCLOPRAMIDE 5 MG TAB PO SCH (08:27)
[2023-12-07] MEDS: IBUPROFEN 800 MG TAB PO PRN (08:29)
[2023-12-07 11:32] LABS: Chol/HDL Ratio 2.23 Ratio; LDL Cholesterol,Calculated 40.9 mg/dL (0.0-131.0)
[2023-12-07] MEDS: SERTRALINE 50 MG TAB PO SCH (11:50)
--- NOTE | 2023-12-07 12:21 | P.HP ---
Psychiatric H&P - . H&P Date: 12/07/23 History & Physical: Allergies Allergy/AdvReac Type Severity Reaction Status Date / Time dicyclomine HCl from Bentyl Allergy Unknown Dyspnea Verified 12/06/23 20:18 latex Allergy Unknown Rash/Hives Verified 12/06/23 20:18 Benzoate Analogues Allergy Unknown Verified 12/06/23 20:18 nitrofurantoin Allergy Nausea Verified 12/06/23 20:18 From Macrobid Penicillins Allergy "[place] Verified 12/06/23 20:18 funny" adhesive AdvReac Unknown Itching Verified 12/06/23 20:18 ciprofloxacin AdvReac Unknown Nausea Verified 12/06/23 20:18 Macrolide Antibiotics AdvReac Unknown Nausea Verified 12/06/23 20:18 sulfamethoxazole AdvReac Unknown Unknown Verified 12/06/23 20:18 From Bactrim trimethoprim from Bactrim AdvReac Unknown Unknown Verified 12/06/23 20:18 diphenhydramine AdvReac Confusion Verified 12/06/23 10:54 From Benadryl Vital Signs Temp 97.6 F 12/07/23 05:39 Pulse 80 12/07/23 08:26 Resp 16 12/07/23 05:39 BP 112/64 12/07/23 08:26 Pulse Ox 98 12/07/23 05:39 FiO2 Intake & Output 12/06/23 12/07/23 12/07/23 18:59 06:59 18:59 Weight 79.832 kg 76.657 kg Laboratory Last Values WBC 5.9 k/uL (3.8-10.6) 12/07/23 06:48 RBC 4.96 m/uL (4.30-5.90) 12/07/23 06:48 Hgb 15.3 gm/dL (13.0-17.5) 12/07/23 06:48 Hct 46.5 % (39.0-53.0) 12/07/23 06:48 MCV 93.6 fL (80.0-100.0) 12/07/23 06:48 MCH 30.9 pg (25.0-35.0) 12/07/23 06:48 MCHC 33.0 g/dL (31.0-37.0) 12/07/23 06:48 RDW 13.4 % (11.5-15.5) 12/07/23 06:48 Plt Count 173 k/uL (150-450) 12/07/23 06:48 MPV 7.3 12/07/23 06:48 Neutrophils % 69 % 12/07/23 06:48 Lymphocytes % 19 % 12/07/23 06:48 Monocytes % 6 % 12/07/23 06:48 Eosinophils % 3 % 12/07/23 06:48 Basophils % 0 % 12/07/23 06:48 Neutrophils # 4.1 k/uL (1.3-7.7) 12/07/23 06:48 Lymphocytes # 1.1 k/uL (1.0-4.8) 12/07/23 06:48 Monocytes # 0.4 k/uL (0-1.0) 12/07/23 06:48 Eosinophils # 0.2 k/uL (0-0.7) 12/07/23 06:48 Basophils # 0.0 k/uL (0-0.2) 12/07/23 06:48 Sodium 141 mmol/L (137-145) 12/07/23 06:48 Potassium 4.3 mmol/L (3.5-5.1) 12/07/23 06:48 Chloride 112 mmol/L (98-107) H 12/07/23 06:48 Carbon Dioxide 27 mmol/L (22-30) 12/07/23 06:48 Anion Gap 2 mmol/L 12/07/23 06:48 BUN 13 mg/dL (9-20) 12/07/23 06:48 Creatinine 0.89 mg/dL (0.66-1.25) 12/07/23 06:48 Est GFR (CKD-EPI)AfAm >90 (>60 ml/min/1.73 sqM) 12/07/23 06:48 Est GFR (CKD-EPI)NonAf >90 (>60 ml/min/1.73 sqM) 12/07/23 06:48 Glucose 124 mg/dL (74-99) H 12/07/23 06:48 POC Glucose (mg/dL) 141 mg/dL (70-110) H 12/07/23 07:47 POC Glu [employer] Supervisor ID Jess Canales 12/07/23 07:47 Calcium 9.0 mg/dL (8.4-10.2) 12/07/23 06:48 Total Bilirubin 0.7 mg/dL (0.2-1.3) 12/07/23 06:48 AST 30 U/L (17-59) 12/07/23 06:48 ALT 45 U/L (4-49) 12/07/23 06:48 Alkaline Phosphatase 61 U/L (38-126) 12/07/23 06:48 Total Protein 5.6 g/dL (6.3-8.2) L 12/07/23 06:48 Albumin 3.6 g/dL (3.5-5.0) 12/07/23 06:48 TSH 0.555 mIU/L (0.465-4.680) 12/07/23 06:48 Urine Color Colorless 12/06/23 10:19 Urine Appearance Clear (Clear) 12/06/23 10:19 Urine pH 5.5 (5.0-8.0) 12/06/23 10:19 Ur Specific [place] 1.004 (1.001-1.035) 12/06/23 10:19 Urine Protein Negative (Negative) 12/06/23 10:19 Urine Glucose (UA) Negative (Negative) 12/06/23 10:19 Urine Ketones Negative (Negative) 12/06/23 10:19 Urine Blood Negative (Negative) 12/06/23 10:19 Urine Nitrite Negative (Negative) 12/06/23 10:19 Urine Bilirubin Negative (Negative) 12/06/23 10:19 Urine Urobilinogen <2.0 mg/dL (<2.0) 12/06/23 10:19 Ur Leukocyte Esterase Negative (Negative) 12/06/23 10:19 Urine Opiates Screen Not Detected (NotDetected) 12/06/23 10:19 Ur Oxycodone Screen Not Detected (NotDetected) 12/06/23 10:19 Urine Methadone Screen Not Detected (NotDetected) 12/06/23 10:19 Ur Barbiturates Screen Not Detected (NotDetected) 12/06/23 10:19 U Tricyclic Antidepress Not Detected (NotDetected) 12/06/23 10:19 Ur Phencyclidine Scrn Not Detected (NotDetected) 12/06/23 10:19 Ur Amphetamines Screen Not Detected (NotDetected) 12/06/23 10:19 U Methamphetamines Scrn Not Detected (NotDetected) 12/06/23 10:19 U Benzodiazepines Scrn Not Detected (NotDetected) 12/06/23 10:19 Urine Cocaine Screen Not Detected (NotDetected) 12/06/23 10:19 U Marijuana (THC) Screen Not Detected (NotDetected) 12/06/23 10:19 SARS-CoV-2 (PCR) Not Detected (Not Detectd) 12/06/23 16:39 12/07/23 09:09 IDENTIFYING DATA: Patient is a 53 year old man, never , no children, lives in a room and board with a room mate. Unemployed. Receives SSD. Has public guardian. HPI: Patient presented to the hospital on 12/05. As per EPS note, "brought in by [facility] staff due to anxiety,depression, SI w plan to walk into traffic. Cl reports calls to [facility] and [facility] for the same symptoms that are related to their dissatisfaction with their current housing. Cl is in AF home with [facility] oversight. Cl reports they are frustrated at the home and want to live somewhere else. " They don't treat me right there, and if I have to go back I'll just leave the state." Cl reports staff member " Deonte is always yelling at me, I can't stand him, he gets me upset and I shake and can't take my Lantis." Cl reports aud oliver command to kill themselves, high anxiety, trouble with focus, hyperverbal, tangential, feeling like they can't care for themselves properly. Cl states " I just want to go somewhere and ." When asked is cl had any hx of self harm cl stated " If I had a chance to cut myself I would, I want to give up, its bad. " Clinician informed the cl that the ER is not able to accomodate the request to be placed somewhere else and that he would need to take that up with his guardian and roll hand. Cl is open with [facility] and has a long hx there. Cl is currently in the Next Step program." Today, he states that he has been having problems at the home he is living at. He states that his room mate smokes weed in the room when he sleeps, and that they drink, etc. He states he can not focus with them being loud and partying. He states that he is anxious and depressed, and wanted to walk out in front of a car. He states that he is eating well. And that he is sleeping fairly. That currently he is still having passive suicidal thoughts., No specific plan. He states that he is feeling "tired all the time". Patient denies homicidal ideations intent or plan. At this time patient endorses auditory and visual hallucinations. Patient is endorsing paranoia as well. Patient vehemently states he does not want to return to where he was living. Patient admits to using cigarettes. PAST PSYCHIATRIC HISTORY: Patient has a history of schizophrenia. The patient's home medications include Abilify and Trazodone. He has had previous trials of Prolixin Decanoate, Invega, and BuSpar. The patient was last hospitalized on this psychiatric unit in December of 2022, and he was down in [facility] admitted recently also. He is open with [facility] and receives robust services. He reports no prior attempt at suicide in the past. PMH:As per ER note ALLERGIES: as per EMR CHEMICAL DEPENDENCY HISTORY: as per HPI FAMILY PSYCHIATRIC/SUBSTANCE USE HISTORY: Patient reports that his brother had depression. SOCIAL HISTORY: Patient was born and raised in [place]. He currently lives with roommates. He is single, never , and has no children. He does have a guardian. He receives Social Security. He denies any legal issues. MENTAL STATUS EXAM: General Appearance: Patient appears to be older than stated age, is alert, directable, and attempts to cooperate. Patient appears to have fair hygiene and grooming. Clean shaven, wearing a hospital gown. Behavior: Patient is seated without any agitated behavior. Speech: Patient's speech is fluent and nonpressured. Mood/Affect: Patient reports their mood is depressed and anxious, affect is congruent and constricted. Suicidality/Homicidality: Patient denies having any homicidal ideation intent or plan. Denies any suicidal ideations intent or plan Perceptions: Patient endorses visual hallucinations and auditory hallucinations Though content/process: There is no evidence of any delusional thought content and thought process is linear and goal-directed. Memory and concentration: AOX3, grossly intact for the purposes of this session. Can spell "WORLD" backwards Judgment and insight: poor STRENGTHS/WEAKNESSES: strength is that patient is resilient. Weakness is that patient has poor judgment and is impulsive INTELLECT: average IMPRESSIONS: Schizophrenia nicotine dependance PLAN: -Patient is admitted under voluntary status to MHU for stabilization of psychiatric symptoms and safety. Patient has signed adult voluntary form and medication consent and is placed in patient's chart. -Medications : Will start patient on Abilify 15mg qhs for mood/psychosis, Melatonin 5mg qhs for sleep, increase trazodone 150mg qhs for sleep/mood, add Zoloft 50mg daily for mood/anxiety -Ativan and Haldol PRN for agitation/aggression -Patient was counselled on substance abuse and desired to cut back on use -Patient was informed of the risks, benefits and side effects of the medication and patient verbally consented to taking the medications. -Internal Medicine consult to perform medical evaluation and physical. -NRT - nicotine patch -SW on board for discharge planning. Encourage patient to participate in groups to work on coping skills.
[2023-12-07 12:44] LABS: Glucose,Whole Blood 84 mg/dL (70-110)
[2023-12-07] MEDS: MAG HYDROX/AL HYDROX/SIMETH 355 ML BOTTLE PO PRN (12:45)
--- NOTE | 2023-12-07 13:18 | P.MDCNMH ---
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 Patient states that he has problems with his residence and is sharing with 2 other persons. Patient felt like he wanted to go somewhere to . He has been very depressed. Denies any specific plan to commit suicide. Otherwise denies any complaints of chest pain. Patient is having shortness of breath with walking. He is being treated for bronchitis with doxycycline for the past 7 days. Patient also was nauseous this morning. Requiring the Reglan. She is also having diarrhea with loose stools and thought to be due to antibiotics. Denies any abdominal pain. Laboratory test showed WBC 5.9 hemoglobin 15.3, platelets 173 sodium 141 potassium 4.3 chloride 112 bicarb is 27 BUN 39 creatinine 0.89 and blood sugar 124 A1c 8.1 AST ALT alk phos within normal limits. Albumin 3.6 LDL 40.9 TSH 0.55 COVID-19 PCR not detected. UDS negative. UA negative for infection. Review of Systems Constitutional: Patient denies any fever or chills . No generalized weakness or weight loss. Abdomen: Patient does complain of nausea and diarrhea. No episodes of vomiting. No complaints of abdominal pain. Cardiovascular: Patient denies any chest pain. Patient does have short of breath no palpitations. Respiratory: patient does have cough without any sputum production.. Positive for shortness of breath Neurologic: Patient denied any numbness or tingling. no headache. Musculoskeletal: Patient denies any complaints of joint swelling or deformity. Skin: Negative Psychiatric: Negative Endocrine: No heat or cold intolerance. No recent weight gain. Genitourinary: No dysuria or hematuria. All other 14 point ROS negative except the above Past Medical History Past Medical History: Asthma, Chest Pain / Angina, COPD, CVA/TIA, Diabetes Mellitus, GERD/Reflux, Hearing Disorder / Deafness, Hyperlipidemia, Hypertens ion, Liver Disease, Osteoarthritis (OA), Pneumonia, Seizure Disorder, Sleep Apnea/CPAP/BIPAP Additional Past Medical History / Comment(s): states CVA at 35 yrs old, no weakness @ this time. states seizure at 35 yrs old., DDD- back & neck pain., carpal tunnel syndrome. Has [facility] public guardian. History of Any Multi-Drug Resistant Organisms: None Reported Past Surgical History: Heart Catheterization, Orthopedic Surgery Additional Past Surgical History / Comment(s): Cysts removed, left thumb surger y, colonoscopy 08/24/2019. Skin tags removed from both eyes. Past Anesthesia/Blood Transfusion Reactions: Unable to Obtain, Motion Sickness, Postoperative Nausea & Vomiting (PONV) Past Psychological History: Anxiety, Bipolar, Depression, Schizophrenia Additional Psychological History / Comment(s): Pt has a public legal guardian, lives in a very small fpc. Goes to [facility]. Smoking Status: Current every day smoker Past Alcohol Use History: Rare Additional Past Alcohol Use History / Comment(s): Pt started smoking in 1984 and is a 1-2ppd smoker. Quit for short time and then started again. Past hx. ETOH abuse. Does not drink anymore. Past Drug Use History: None Reported Additional Drug Use History / Comment(s): pt denies any recreational drug use - Past Family History Brother(s) Family Medical History: Diabetes Mellitus Additional Family Medical History / Comment(s): Patient has 2 brothers. One from complications from diabetes. The second is alive with diabetes. Sister(s) Family Medical History: Cancer Additional Family Medical History / Comment(s): Patient has one sister with breast cancer. Patient does not have any children. Father Family Medical History: Cancer Additional Family Medical History / Comment(s): Father in his 40s or 50s from colon cancer. Mother Family Medical History: Cancer Additional Family Medical History / Comment(s): Mother at age 68 from lung cancer. Medications and Allergies Home Medications Medication Instructions Recorded Confirmed Type Aspirin EC [Ecotrin Low Dose] 81 mg PO DAILY 07/09/20 12/06/23 History ARIPiprazole [Abilify] 15 mg PO DAILY 05/26/23 12/06/23 History Melatonin 5 mg PO HS 05/26/23 12/06/23 History Albuterol Inhaler [Ventolin Hfa 1 - 2 puff INHALATION RT-QID PRN 08/20/23 12/06/23 History Inhaler] Albuterol Nebulized [Ventolin 2.5 mg INHALATION RT-Q6H PRN 08/20/23 12/06/23 History Nebulized] Esomeprazole Magnesium [NexIUM] 40 mg PO DAILY 08/20/23 12/06/23 History Nitroglycerin Sl Tabs [Nitrostat] 0.4 mg SL Q5M PRN 08/20/23 12/06/23 History Montelukast [Singulair] 10 mg PO HS 10/06/23 12/06/23 History lisinopriL [Zestril] 2.5 mg PO DAILY 10/06/23 12/06/23 History metFORMIN HCL 1,000 mg PO BID 10/06/23 12/06/23 History traZODone HCL [Desyrel] 100 mg PO HS 10/06/23 12/06/23 History Atorvastatin [Lipitor] 10 mg PO HS 12/06/23 12/06/23 History Cholecalciferol (Vitamin D3) 50 mcg PO DAILY 12/06/23 12/06/23 History [Vitamin D3 (50 Mcg = 2000 Iu)] Doxycycline Hyclate 100 mg PO BID 12/06/23 12/06/23 History Famotidine [Pepcid] 20 mg PO BID PRN 12/06/23 12/06/23 History Ibuprofen [Motrin] 800 mg PO Q8H PRN 12/06/23 12/06/23 History Insulin Glargine,Hum.rec.anlog 10 units SQ HS 12/06/23 12/06/23 History [Lantus Solostar Pen] Meloxicam [Mobic] 7.5 mg PO DAILY PRN 12/06/23 12/06/23 History Metoclopramide [Reglan] 5 mg PO AC-TID 12/06/23 12/06/23 History Ondansetron Odt [Zofran Odt] 4 mg PO BID PRN 12/06/23 12/06/23 History Varenicline [Chantix Starter Pack] 0.5 - 1 mg PO DIRECTED 12/06/23 12/06/23 History Allergies Allergy/AdvReac Type Severity Reaction Status Date / Time dicyclomine HCl [From Bentyl] Allergy Unknown Dyspnea Verified 12/06/23 20:18 latex Allergy Unknown Rash/Hives Verified 12/06/23 20:18 Benzoate Analogues Allergy Unknown Verified 12/06/23 20:18 nitrofurantoin Allergy Nausea Verified 12/06/23 20:18 [From Macrobid] Penicillins Allergy "[place] Verified 12/06/23 20:18 funny" adhesive AdvReac Unknown Itching Verified 12/06/23 20:18 ciprofloxacin AdvReac Unknown Nausea Verified 12/06/23 20:18 Macrolide Antibiotics AdvReac Unknown Nausea Verified 12/06/23 20:18 sulfamethoxazole AdvReac Unknown Unknown Verified 12/06/23 20:18 [From Bactrim] trimethoprim [From Bactrim] AdvReac Unknown Unknown Verified 12/06/23 20:18 diphenhydramine AdvReac Confusion Verified 12/06/23 10:54 [From Benadryl] Physical Exam Vitals: Vital Signs Temp Pulse Pulse Pulse Resp BP BP 12/07/23 10:39 77 12/07/23 08:26 80 12/07/23 05:39 97.6 F 84 16 100/66 12/06/23 21:15 97.9 F 61 15 111/65 12/06/23 20:31 72 18 121/78 12/06/23 19:34 72 18 121/78 BP BP Pulse Ox 12/07/23 10:39 102/59 12/07/23 08:26 112/64 12/07/23 05:39 98 12/06/23 21:15 97 12/06/23 20:31 98 12/06/23 19:34 99 Intake and Output 12/06/23 12/07/23 12/07/23 22:59 06:59 14:59 Other: Weight 76.657 kg PHYSICAL EXAMINATION: Patient is lying in the bed comfortably, no acute distress, awake alert and oriented.. HEENT: Normocephalic. Neck is supple. Pupils reactive. Nostrils clear. Oral cavity is moist. Neck reveals no JVD, carotid bruits, or thyromegaly. CHEST EXAMINATION: Trachea is central. Symmetrical expansion. Bilateral expiratory wheezing. Nonlabored breathing. CARDIAC: Normal S1, S2 with no gallops. No murmurs ABDOMEN: Soft. Bowel sounds normal. No organomegaly. No abdominal bruits. Extremities: reveal no edema. No clubbing or cyanosis Neurologically awake, alert, oriented x3 with well-coordinated movements. No focal deficits noted Skin: No rash or skin lesions. Psychiatric: Coperative. Nonsuicidal Musculoskeletal: No joint swelling or deformity. Normal range of motion. Cranial Nerve Examination - Cranial Nerves Cranial Nerve I- Olfactory: Intact Cranial Nerve II- Optic: Intact Cranial Nerve III- Oculomotor: Intact Cranial Nerve IV- Trochlear: Intact Cranial Nerve V- Trigeminal: Intact Cranial Nerve - Abducens: Intact Cranial Nerve VII- Facial: Intact Cranial Nerve VIII- Auditory: Intact Cranial Nerve IX- Glossopharyngeal: Intact Cranial Nerve X- Vagus: Intact Cranial Nerve XI- Accessory: Intact Cranial Nerve XII- Hypoglossal: Intact Results CBC & Chem 7: 12/07/23 06:48 12/07/23 06:48 Labs: Abnormal Lab Results - Last 24 Hours (Table) 12/06/23 12/06/23 12/07/23 Range/Units 16:09 21:20 06:48 Chloride 112 H (98-107) mmol/L Glucose 124 H (74-99) mg/dL POC Glucose (mg/dL) 130 H 207 H (70-110) mg/dL Total Protein 5.6 L (6.3-8.2) g/dL 12/07/23 Range/Units 07:47 Chloride (98-107) mmol/L Glucose (74-99) mg/dL POC Glucose (mg/dL) 141 H (70-110) mg/dL Total Protein (6.3-8.2) g/dL Assessment and Plan Assessment: Depression with suicidal ideation Schizophrenia COPD Hypertension Diabetes type 2 insulin-dependent Hearing is/deafness Hypertension Hyperlipidemia Seizure disorder Obstructive sleep apnea nightly CPAP Degenerative's disease and chronic back pain Anxiety/depression schizophrenia and bipolar disorder Current everyday smoker History of alcohol abuse DVT prophylaxis with early ambulation Plan: Patient will be continued on symptomatic management for nausea and vomiting. Continue with PPI. Will be started on DuoNebs inhalation and Symbicort. Continue to follow breathing status closely. Continue pain medications and follow-up closely. Continued psychiatric management and plan. Will follow-up closely and further recommendations based on the clinical course. Time with Patient: Greater than 30
--- NOTE | 2023-12-07 13:48 | XR ---
EXAMINATION TYPE: XR chest 1V DATE OF EXAM: 12/07/2023 HISTORY: Shortness of breath. COMPARISON: 12/02/2023 TECHNIQUE: Single view of the chest is submitted. FINDINGS: Demonstrated are scattered senescent parenchymal change. There is no evidence for focal infiltrate. The heart is stable. Hilar and mediastinal structures are within normal limits. Degenerative changes are seen of the dorsal spine. IMPRESSION: 1. Chronic changes without evidence for acute pulmonary disease.
[2023-12-07] MEDS: IPRATROPIUM-ALBUTEROL 3 ML NEB INHALATION PRN (14:58)
[2023-12-07] MEDS: SYMBICORT 160-4.5 MCG INHALER INHALATION STA (15:02)
[2023-12-07] MEDS: FAMOTIDINE 20 MG TAB PO PRN (15:34)
[2023-12-07 17:32] LABS: Glucose,Whole Blood 168 mg/dL (70-110)
[2023-12-07 19:53] LABS: Glucose,Whole Blood 179 mg/dL (70-110)
[2023-12-07] MEDS: SYMBICORT 160-4.5 MCG INHALER INHALATION SCH (21:40)
[2023-12-07] MEDS: traZODone HCL 50 MG TAB PO SCH (21:41)
--- NOTE | 2023-12-08 11:40 | P.PN ---
Progress Note - Text Progress Note Date: 12/08/23 Interval History: Patient was seen [wandering the hallways] and was directable and agreeable to speak with race and sports book writer in the office. Patient stated he is doing ok today, however, is still having intrusive thoughts, and endorsing depression and anxiety. He claims he is unable to eat. Patient was fairly somatically preoccupied today claiming that he needs a wheelchair even when he leaves. Bi[employer]ass Power Plant Manager offered patient ensure drinks with meals, patient agreeable. Patient states he was able to sleep a bit better last night. Patient claims that he is having a lot of anxiety, asking for a shot of something to calm him down. Biomass Power Plant Manager offered patient V[place]al PO for anxiety, patient agreeable to try it. At this time patient denies any suicidal or homical ideations, intent or plan. Patient denies any auditory, visual hallucinations and denies any paranoia or delusions. Patient denies any side effects from the medications and has been compliant with meds. MENTAL STATUS EXAM: General Appearance: Patient appears to be older than stated age, is alert, directable, and attempts to cooperate. Patient appears to have fair hygiene and grooming. Clean shaven, wearing a hospital gown. Behavior: Patient is seated without any agitated behavior. Superficial manipulative Speech: Patient's speech is fluent and nonpressured. Mood/Affect: Patient reports their mood is depressed and anxious, affect is congruent and constricted. mildly improving Suicidality/Homicidality: Patient denies having any homicidal ideation intent or plan. Denies any suicidal ideations intent or plan Perceptions: Patient denies visual hallucinations and auditory hallucinations Though content/process: There is no evidence of any delusional thought content and thought process is linear and goal-directed. Focused on his somatic symptoms, depressive content Memory and concentration: AOX3, grossly intact for the purposes of this session. Judgment and insight: poor chronically IMPRESSIONS: Schizophrenia nicotine dependance PLAN: -Patient is admitted under voluntary status to MHU for stabilization of psychiatric symptoms and safety. -Medications : Abilify 15mg qhs for mood/psychosis, Melatonin 5mg qhs for sleep,d/c trazodone add Remeron 15mg qhs for sleep/mood, increase Zoloft 75mg daily for mood/anxiety, add visteral 25mg po q4 hours, prn for anxiety -Ativan and Haldol PRN for agitation/aggression -NRT - nicotine patch -SW on board for discharge planning. Encourage patient to participate in groups to work on coping skills. [facility] and guardian will decide on patient's disposition, either he will be discharged back to [facility] versus living independently.
[2023-12-08] MEDS: MIRTAZAPINE 15 MG TAB PO SCH (20:22)
[2023-12-08 20:29] LABS: Glucose,Whole Blood 181 mg/dL (70-110)
[2023-12-09] MEDS: ACETAMINOPHEN TAB 325 MG TAB PO PRN (05:27)
[2023-12-09] MEDS: hydrOXYzine pamoate 25 MG CAP PO PRN (05:47)
[2023-12-09] MEDS: SERTRALINE 25 MG TAB PO SCH (08:13)
--- NOTE | 2023-12-09 10:15 | P.PN ---
Progress Note - Text Progress Note Date: 12/09/23 Interval History: Patient was seen [wandering the hallways] and was directable and agreeable to speak with contract technical writer in the office. Patient stated he feels like he is doing better today. He states his anxiety and depression are mildly improving today, just worrying about where he is going to go when he is discharged, because he does not want to go back to where he came from. He states his appetite is improving slightly, and the ensures are helping him. At this time patient denies any suicidal or homical ideations, intent or plan. Patient denies any auditory, visual hallucinations and denies any paranoia or delusions. Patient denies any side effects from the medications and has been compliant with meds. MENTAL STATUS EXAM: General Appearance: Patient appears to be older than stated age, is alert, directable, and attempts to cooperate. Patient appears to have fair hygiene and grooming. Clean shaven, wearing a hospital gown. Behavior: Patient is seated without any agitated behavior. Superficial manipulative, mildly improving Speech: Patient's speech is fluent and nonpressured. Mood/Affect: Patient reports their mood is depressed and anxious improving, affect is congruent and constricted. mildly improving Suicidality/Homicidality: Patient denies having any homicidal ideation intent or plan. Denies any suicidal ideations intent or plan Perceptions: Patient denies visual hallucinations and auditory hallucinations Though content/process: There is no evidence of any delusional thought content and thought process is linear and goal-directed. Focused on his somatic symptoms, improving mildly Memory and concentration: AOX3, grossly intact for the purposes of this session. Judgment and insight: poor chronically, improving midlly IMPRESSIONS: Schizophrenia nicotine dependance PLAN: -Patient is admitted under voluntary status to [facility] for stabilization of psychiatric symptoms and safety. -Medications : Abilify 15mg qhs for mood/psychosis, Melatonin 5mg qhs for sleep, Remeron 15mg qhs for sleep/mood, Zoloft 75mg daily for mood/anxiety, visteral 25mg po q4 hours, prn for anxiety -Ativan and Haldol PRN for agitation/aggression -NRT - nicotine patch -SW on board for discharge planning. Encourage patient to participate in groups to work on coping skills. [facility] and guardian will decide on patient's disposition, either he will be discharged back to [facility] versus living independently early next week.
[2023-12-09 17:36] LABS: Glucose,Whole Blood 96 mg/dL (70-110)
[2023-12-09 20:54] LABS: Glucose,Whole Blood 179 mg/dL (70-110)
--- NOTE | 2023-12-10 10:31 | P.PN ---
Progress Note - Text Progress Note Date: 12/10/23 Interval History: Patient was seen [wandering the hallways] and was directable and agreeable to speak with play writer in the office. Patient stated he feels like his mood is slightly improved today. The patient stated he showered last night. Today he is dressed in his own clothing today. His [facility] worker was just on the unit speaking to the patient, the patient stated that [facility] is going to work on getting him his own place to live. Psychiatry Adult Physician received an email from the guardian that the patient will have to return to the boarding house he was staying at, because he has exhausted all his options. He states his appetite is improving slightly, and the ensures are helping him. Patient asking about a medical doctor coming up to order him a wheel chair to go home in. At this time patient denies any suicidal or homicidal ideations, intent or plan. Patient denies any auditory, visual hallucinations and denies any paranoia or delusions. Patient denies any side effects from the medications and has been compliant with meds. MENTAL STATUS EXAM: General Appearance: Patient appears to be older than stated age, is alert, directable, and attempts to cooperate. Patient appears to have fair hygiene and grooming. Clean shaven, wearing a hospital gown. Behavior: Patient is seated without any agitated behavior. Superficial manipulative, mildly improving Speech: Patient's speech is fluent and nonpressured. Mood/Affect: Patient reports their mood is depressed and anxious improving, affect is congruent and constricted. mildly improving Suicidality/Homicidality: Patient denies having any homicidal ideation intent or plan. Denies any suicidal ideations intent or plan Perceptions: Patient denies visual hallucinations and auditory hallucinations Though content/process: There is no evidence of any delusional thought content and thought process is linear and goal-directed. Focused on his somatic sym ptoms, improving mildly Memory and concentration: AOX3, grossly intact for the purposes of this session. Judgment and insight: poor chronically, improving midlly IMPRESSIONS: Schizophrenia nicotine dependance PLAN: -Patient is admitted under voluntary status to [facility] for stabilization of psychiatric symptoms and safety. -Medications : Abilify 15mg qhs for mood/psychosis, Melatonin 5mg qhs for sleep, Remeron 15mg qhs for sleep/mood, change and increase Zoloft 100mg qhs for mood/anxiety, visteral 25mg po q4 hours, prn for anxiety -Ativan and Haldol PRN for agitation/aggression -NRT - nicotine patch - on board for discharge planning. Encourage patient to participate in groups to work on coping skills. Guardian emailed and stated that the patient will have to return to the boarding house he came from upon discharge. will attempt to coordinate with [facility] again today to see if any other placement options are available for him. likely discharge wednesday
[2023-12-10 19:54] LABS: Glucose,Whole Blood 197 mg/dL (70-110)
[2023-12-10] MEDS: SERTRALINE 100 MG TAB PO SCH (21:17)
--- NOTE | 2023-12-11 09:14 | P.PN ---
Subjective Progress Note Date: 12/11/23 Principal diagnosis: Schizophrenia Subjective The patient was in a wheelchair complaining that his stomach bothers him and that he can't keep any food down has nausea and diarrhea. When I talked to the staff they say that he is consciously has fluctuating somatic complaints sees a Dr. every day and they don't find anything. Patient denies any auditory, visual hallucinations and denies any paranoia or delusions. Patient denies any side effects from the medications and has been compliant with meds. He says that his symptoms predated addition of Zoloft which can occasionally cause stomach problems Objective General Appearance: Patient appears to be older than stated age, is alert, directable, fair hygiene and grooming. Clean shaven, wearing a hospital gown. Behavior: Patient is seated in his wheelchair without any agitated behavior. Speech: Patient's speech is fluent and nonpressured. Mood/Affect: Patient reports their mood is depressed and anxious but that it is improving, affect is constricted. mildly improving Suicidality/Homicidality: Patient denies having any homicidal ideation intent or plan. Denies any suicidal ideations intent or plan Perceptions: Patient denies visual hallucinations and auditory hallucinations Though content/process: There is no evidence of any delusional thought content and thought process is linear and goal-directed. Focused on his somatic symptoms. Memory and concentration: AOX3, grossly intact for the purposes of this session. Judgment and insight: poor chronically, improving midlly Diagnosis Schizophrenia nicotine dependance Assessment: Patient is tolerating his medications he says that the problem is not his medications or that they weren't working but that his life situation is too stressful and if he can get some help on adjusting that he thinks he will do well. PLAN: No change in medicine -Patient is admitted under voluntary status to [facility] for stabilization of psychiatric symptoms and safety. -Medications : Abilify 15mg qhs for mood/psychosis, Melatonin 5mg qhs for sleep, Remeron 15mg qhs for sleep/mood, change and increase Zoloft 100mg qhs for mood/anxiety, visteral 25mg po q4 hours, prn for anxiety -Ativan and Haldol PRN for agitation/aggression -NRT - nicotine patch -SW on board for discharge planning. Encourage patient to participate in groups to work on coping skills. Guardian emailed and stated that the patient will have to return to the boarding house he came from upon discharge. will attempt to coordinate with [facility] again today to see if any other placement options are available for him. likely discharge wednesday Objective - Vital Signs Vital signs: Vital Signs Temp 97.1 F L 12/11/23 05:55 Pulse 77 12/11/23 08:57 Resp 18 12/11/23 08:57 BP 94/53 12/11/23 08:57 Pulse Ox 98 12/11/23 05:55 FiO2 - Labs CBC & Chem 7: 12/07/23 06:48 12/07/23 06:48 Labs: Abnormal Lab Results - Last 24 Hours (Table) 12/10/23 Range/Units 19:52 POC Glucose (mg/dL) 197 H (70-110) mg/dL
[2023-12-11 19:53] LABS: Glucose,Whole Blood 177 mg/dL (70-110)
--- NOTE | 2023-12-12 07:24 | P.PN ---
Subjective Progress Note Date: 12/12/23 Principal diagnosis: Schizophrenia Subjective The patient was walking in the [place] alert and quite willing to come in and talk. He said that he is doing well at a good night sleep stomach is better denies depression or suicidality. Objective General Appearance: Patient appears to be older than stated age, is alert, directable, fair hygiene and grooming. Clean shaven, wearing a hospital gown. Behavior: The patient was walking a little bit unsteady but he seems to be a lot stronger than yesterday Speech: Patient's speech is fluent and nonpressured. He was not very productive was positive Mood/Affect: Patient reports their mood is no longer depressed or anxious, affect open and pleasant and good eye contact Suicidality/Homicidality: Patient denies having any homicidal ideation intent or plan. Denies any suicidal ideations intent or plan Perceptions: Patient denies visual hallucinations and auditory hallucinations Though content/process: There is no evidence of any delusional thought content and thought process is linear and goal-directed. He is no longer focused on his somatic symptoms. Memory and concentration: AOX3, grossly intact for the purposes of this session. Judgment and insight: poor chronically, improving midlly Diagnosis Schizophrenia nicotine dependance Assessment: Patient is tolerating his medications he says that the problem is not his medications or that they weren't working but that his life situation is too stressful and if he can get some help on adjusting that he thinks he will do well. I think he is now focused on getting discharged and so he is going to suddenly have a flight into health. PLAN: No change in medicine -Patient is admitted under voluntary status to [facility] for stabilization of psychiatric symptoms and safety. -Medications : Abilify 15mg qhs for mood/psychosis, Melatonin 5mg qhs for sleep, Remeron 15mg qhs for sleep/mood, Zoloft 100mg qhs for mood/anxiety, visteral 25mg po q4 hours, prn for anxiety he says he slept well despite taking Zoloft at night as pry easier for him to remember all of his medicines at the same time each day -Ativan and Haldol PRN for agitation/aggression -NRT - nicotine patch -SW on board for discharge planning. Encourage patient to participate in groups to work on coping skills. Guardian emailed and stated that the patient will have to return to the boarding house he came from upon discharge. will attempt to coordinate with [facility] again today to see if any other placement options are available for him. likely discharge wednesday Objective - Vital Signs Vital signs: Vital Signs Temp 97.4 F L 12/12/23 06:50 Pulse 63 12/12/23 06:50 Resp 16 12/12/23 06:50 BP 106/76 12/12/23 06:50 Pulse Ox 98 12/11/23 05:55 FiO2 - Labs CBC & Chem 7: 12/07/23 06:48 12/07/23 06:48 Labs: Abnormal Lab Results - Last 24 Hours (Table) 12/11/23 Range/Units 19:51 POC Glucose (mg/dL) 177 H (70-110) mg/dL
[2023-12-12 07:35] LABS: Glucose,Whole Blood 108 mg/dL (70-110)
[2023-12-12 19:51] LABS: Glucose,Whole Blood 247 mg/dL (70-110)
[2023-12-13 07:17] VITALS: BP 117/72; PULSE 57; RESP 14; TEMP 97.6
--- NOTE | 2023-12-13 11:37 | P.DS ---
Providers Date of admission: 12/06/23 19:58 Expected date of discharge: 12/13/23 Attending physician: Wisam Espinal MD Consults: 12/06/23 20:15 Consult Physician Routine Consulting Provider: Magdalena Gomez Consult Reason/Comments: H&P and medical Do you want consulting provider notified?: Yes Primary care physician: Ramya Saul - Discharge Diagnosis(es) (1) Schizophrenia Current Visit: No Status: Acute Priority: High (2) Nicotine dependence Current Visit: No Status: Acute Priority: Low Hospital Course: Admission HPI: Admission note was completed by telegraphic typewriter installer "Patient presented to the hospital on 12/05. As per EPS note, "brought in by [facility] staff due to anxiety,depression, SI w plan to walk into traffic. Cl reports calls to [facility] and [facility] for the same symptoms that are related to their dissatisfaction with their current housing. Vinny is in AF home with [facility] oversight. Cl reports they are frustrated at the home and want to live somewhere else. " They don't treat me right there, and if I have to go back I'll just leave the state." Cl reports staff member " Deonte is always yelling at me, I can't stand him, he gets me upset and I shake and can't take my Lantis." Cl reports aud oliver command to kill themselves, high anxiety, trouble with focus, hyperverbal, tangential, feeling like they can't care for themselves properly. Cl states " I just want to go some where and ." When asked is cl had any hx of self harm cl stated " If I had a chance to cut myself I would, I want to give up, its bad. " Clinician informed the cl that the ER is not able to accomodate the request to be placed somewhere else and that he would need to take that up with his guardian and storage garage attendant. Vinny is open with [facility] and has a long hx there. Vinny is currently in the [facility] progr am." Today, he states that he has been having problems at the home he is living at. He states that his room mate smokes weed in the room when he sleeps, and that they drink, etc. He states he can not focus with them being loud and partying. He states that he is anxious and depressed, and wanted to walk out in front of a car. He states that he is eating well. And that he is sleeping fairly. That c urrently he is still having passive suicidal thoughts., No specific plan. He states that he is feeling "tired all the time". Patient denies homicidal ideations intent or plan. At this time patient endorses auditory and visual hallucinations. Patient is endorsing paranoia as well. Patient vehemently states he does not want to return to where he was living. Patient admits to using cigarettes." Hospital course: Upon admission to the unit patient was directable and agreeable to commence treatment and signed adult voluntary form. Patient got along well with other patients on the unit and followed unit protocol. Patient was compliant with the medications and denied any side effects throughout hospital course. Patient was started on Abilify p.o. 50 mg nightly for mood stabilization/psychosis, melatonin 5 mg nightly for sleep, Remeron 15 mg nightly for sleep/mood, Zoloft 100 mg nightly for mood/anxiety, Vistaril as needed for anxiety.. Patient spoke of his stressors and engaged in therapy both group and individual. Patient was also seen by medical team for history and physical exam. Throughout the course of the hospitalization patient gradually improved with regards to mood, anxiety, suicidal thoughts, sleep and returned back to their baseline level of functioning. On the day of discharge patient denied any suicidal or homicidal ideations intent or plan denied any auditory or visual hallucinations. Patient endorsed wanting to live for his future and his health. The patient denied any access to guns or weapons. Patient denied any paranoia and did not endorse any delusions. Patient does not have a significant history of substance abuse and was counseled on abstaining from all substances including alcohol and marijuana. Patient was also counseled on the medications and need for regular compliance and was encouraged to follow-up with their outpatient appointment for mental health and also for primary care. Prior to discharge a gaurdian meeting will be arranged by social sciences instructor to answer any questions and ensure safety upon discharge. Patient will be discharged back to his previous AF today with [facility] follow-up. Mental status exam: General Appearance: Patient appears to be stated age is alert, pleasant, and cooperative. Patient is in no acute distress and has improved hygiene and grooming Behavior: Patient is calmly seated without any agitated behavior. Speech: Patient's speech is fluent and nonpressured. Mood/Affect: Patient reports their mood is "good", affect is congruent and euthymic. Suicidality/Homicidality: Patient denies having any suicidal or homicidal ideation intent or plan. Perceptions: Patient denies any auditory or visual hallucinations. Though content/process: There is no evidence of any delusional thought content and thought process is linear and goal-directed. More future oriented Memory and concentration: AOX3, grossly intact for the purposes of this session. Can spell "WORLD" backwards correctly. Judgment and insight: Chronically poor, however has improved with guarded prognosis Impression: Schizophrenia nicotine dependance Plan: -Continue with discharge today as patient has improved and stabilized psychiat rically and is not currently an imminent threat to himself and/or others. Patient will remain at chronically elevated risk for harm to self and/or others due to his chronically poor insight and judgment. -Continue medications: Abilify p.o. 15 mg nightly for mood/psychosis, melatonin 5 mg nightly for sleep, Remeron 15 mg nightly for sleep/mood, Zoloft 100 mg nightly for mood/anxiety, Vistaril 25 mg daily as needed for anxiety. -Patient was counseled on the need for medication compliance and appropriate follow-up at mental health and also primary care for medical issues. Patient verbalized understanding and agreed. -Social work to help coordinate patient's discharge today back to [facility] home. Social work also to arrange for patients follow up appointments with [facility] for psychiatric care along with follow up with primary care provider. -Patient counseled on abstaining from recreational drugs and marijuana and alcohol. Was informed/educated on the adverse effects on their physical and mental health. Patient verbally agreed and understood. -Patient was instructed to return to the hospital or seek immediate medical care if their psychiatric or medical symptoms do worsen or reoccur. Allergies Allergy/AdvReac Type Severity Reaction Status Date / Time dicyclomine HCl from Bentyl Allergy Unknown Dyspnea Verified 12/06/23 20:18 latex Allergy Unknown Rash/Hives Verified 12/06/23 20:18 Benzoate Analogues Allergy Unknown Verified 12/06/23 20:18 nitrofurantoin Allergy Nausea Verified 12/06/23 20:18 From Macrobid Penicillins Allergy "[place] Verified 12/06/23 20:18 funny" adhesive AdvReac Unknown Itching Verified 12/06/23 20:18 ciprofloxacin AdvReac Unknown Nausea Verified 12/06/23 20:18 Macrolide Antibiotics AdvReac Unknown Nausea Verified 12/06/23 20:18 sulfamethoxazole AdvReac Unknown Unknown Verified 12/06/23 20:18 From Bactrim trimethoprim from Bactrim AdvReac Unknown Unknown Verified 12/06/23 20:18 diphenhydramine AdvReac Confusion Verified 12/06/23 10:54 From Benadryl Laboratory Results WBC 5.9 k/uL (3.8-10.6) 12/07/23 06:48 RBC 4.96 m/uL (4.30-5.90) 12/07/23 06:48 Hgb 15.3 gm/dL (13.0-17.5) 12/07/23 06:48 Hct 46.5 % (39.0-53.0) 12/07/23 06:48 MCV 93.6 fL (80.0-100.0) 12/07/23 06:48 MCH 30.9 pg (25.0-35.0) 12/07/23 06:48 MCHC 33.0 g/dL (31.0-37.0) 12/07/23 06:48 RDW 13.4 % (11.5-15.5) 12/07/23 06:48 Plt Count 173 k/uL (150-450) 12/07/23 06:48 MPV 7.3 12/07/23 06:48 Neutrophils % 69 % 12/07/23 06:48 Lymphocytes % 19 % 12/07/23 06:48 Monocytes % 6 % 12/07/23 06:48 Eosinophils % 3 % 12/07/23 06:48 Basophils % 0 % 12/07/23 06:48 Neutrophils # 4.1 k/uL (1.3-7.7) 12/07/23 06:48 Lymphocytes # 1.1 k/uL (1.0-4.8) 12/07/23 06:48 Monocytes # 0.4 k/uL (0-1.0) 12/07/23 06:48 Eosinophils # 0.2 k/uL (0-0.7) 12/07/23 06:48 Basophils # 0.0 k/uL (0-0.2) 12/07/23 06:48 Sodium 141 mmol/L (137-145) 12/07/23 06:48 Potassium 4.3 mmol/L (3.5-5.1) 12/07/23 06:48 Chloride 112 mmol/L (98-107) H 12/07/23 06:48 Carbon Dioxide 27 mmol/L (22-30) 12/07/23 06:48 Anion Gap 2 mmol/L 12/07/23 06:48 BUN 13 mg/dL (9-20) 12/07/23 06:48 Creatinine 0.89 mg/dL (0.66-1.25) 12/07/23 06:48 Est GFR (CKD-EPI)AfAm >90 (>60 ml/min/1.73 sqM) 12/07/23 06:48 Est GFR (CKD-EPI)NonAf >90 (>60 ml/min/1.73 sqM) 12/07/23 06:48 Glucose 124 mg/dL (74-99) H 12/07/23 06:48 POC Glucose (mg/dL) 247 mg/dL (70-110) H 12/12/23 19:49 POC Glu Director Operations Christine Geronimo 12/12/23 19:[address] Glu mg/dL 186 mg/dL 12/07/23 06:48 Hemoglobin A1c 8.1 % (<=6.0) H 12/07/23 06:48 Calcium 9.0 mg/dL (8.4-10.2) 12/07/23 06:48 Total Bilirubin 0.7 mg/dL (0.2-1.3) 12/07/23 06:48 AST 30 U/L (17-59) 12/07/23 06:48 ALT 45 U/L (4-49) 12/07/23 06:48 Alkaline Phosphatase 61 U/L (38-126) 12/07/23 06:48 Troponin I <0.012 ng/mL (0.000-0.034) 12/07/23 15:05 Total Protein 5.6 g/dL (6.3-8.2) L 12/07/23 06:48 Albumin 3.6 g/dL (3.5-5.0) 12/07/23 06:48 Triglycerides 126.00 mg/dL (0.00-149.00) 12/07/23 06:48 Cholesterol 120.00 mg/dL (0.00-200.00) 12/07/23 06:48 LDL Cholesterol, Calc 40.9 mg/dL (0.0-131.0) 12/07/23 06:48 VLDL Cholesterol, Calc 25.20 mg/dL (5.00-40.00) 12/07/23 06:48 HDL Cholesterol 53.90 mg/dL (40.00-60.00) 12/07/23 06:48 Cholesterol/HDL Ratio 2.23 Ratio 12/07/23 06:48 TSH 0.555 mIU/L (0.465-4.680) 12/07/23 06:48 Urine Color Colorless 12/06/23 10:19 Urine Appearance Clear (Clear) 12/06/23 10:19 Urine pH 5.5 (5.0-8.0) 12/06/23 10:19 Ur Specific [place] 1.004 (1.001-1.035) 12/06/23 10:19 Urine Protein Negative (Negative) 12/06/23 10:19 Urine Glucose (UA) Negative (Negative) 12/06/23 10:19 Urine Ketones Negative (Negative) 12/06/23 10:19 Urine Blood Negative (Negative) 12/06/23 10:19 Urine Nitrite Negative (Negative) 12/06/23 10:19 Urine Bilirubin Negative (Negative) 12/06/23 10:19 Urine Urobilinogen <2.0 mg/dL (<2.0) 12/06/23 10:19 Ur Leukocyte Esterase Negative (Negative) 12/06/23 10:19 Urine Opiates Screen Not Detected (NotDetected) 12/06/23 10:19 Ur Oxycodone Screen Not Detected (NotDetected) 12/06/23 10:19 Urine Methadone Screen Not Detected (NotDetected) 12/06/23 10:19 Ur Barbiturates Screen Not Detected (NotDetected) 12/06/23 10:19 U Tricyclic Antidepress Not Detected (NotDetected) 12/06/23 10:19 Ur Phencyclidine Scrn Not Detected (NotDetected) 12/06/23 10:19 Ur Amphetamines Screen Not Detected (NotDetected) 12/06/23 10:19 U Methamphetamines Scrn Not Detected (NotDetected) 12/06/23 10:19 U Benzodiazepines Scrn Not Detected (NotDetected) 12/06/23 10:19 Urine Cocaine Screen Not Detected (NotDetected) 12/06/23 10:19 U Marijuana (THC) Screen Not Detected (NotDetected) 12/06/23 10:19 SARS-CoV-2 (PCR) Not Detected (Not Detectd) 12/06/23 16:39 Vital Signs Temp 97.6 F 12/13/23 06:24 Pulse 57 L 12/13/23 06:24 Resp 14 12/13/23 06:24 BP 117/72 12/13/23 06:24 Pulse Ox 98 12/11/23 05:55 FiO2 Intake & Output 12/12/23 12/13/23 12/13/23 18:59 06:59 18:59 Weight 77.7 kg Patient Condition at Discharge: Stable Plan - Discharge Summary Discharge Rx Participant: Yes New Discharge Prescriptions: New Ipratropium-Albuterol Nebulize [Duoneb 0.5 mg-3 mg/3 ml Soln] 3 ml INHALATION RT-QID PRN 30 Days #1 each PRN Reason: Shortness Of Breath Or Wheezing Sertraline [Zoloft] 100 mg PO HS 30 Days #30 tab Nicotine 14Mg/24Hr Patch [Habitrol] 1 patch TRANSDERM DAILY 14 Days #14 patch Mirtazapine [Remeron] 15 mg PO HS 30 Days #30 tab Budesonide-Formot 160-4.5 Mcg [Symbicort 160-4.5 Mcg Inhaler] 2 puff INHALATION RT-BID 30 Days #1 each hydrOXYzine pamoate [Vistaril] 25 mg PO DAILY PRN 30 Days #30 cap PRN Reason: Anxiety Continue Nitroglycerin Sl Tabs [Nitrostat] 0.4 mg SL Q5M PRN PRN Reason: Chest Pain metFORMIN HCL 1,000 mg PO BID Meloxicam [Mobic] 7.5 mg PO DAILY PRN PRN Reason: Pain Insulin Glargine,Hum.rec.anlog [Lantus Solostar Pen] 10 units SQ HS Ibuprofen [Motrin] 800 mg PO Q8H PRN PRN Reason: Pain ARIPiprazole [Abilify] 15 mg PO DAILY 30 Days #30 tab Atorvastatin [Lipitor] 10 mg PO HS 30 Days #30 tab Esomeprazole Magnesium [NexIUM] 40 mg PO DAILY 30 Days #30 cap Metoclopramide [Reglan] 5 mg PO AC-TID 10 Days #30 tab Albuterol Nebulized [Ventolin Nebulized] 2.5 mg INHALATION RT-Q6H PRN #1 ml PRN Reason: Shortness Of Breath Cholecalciferol (Vitamin D3) [Vitamin D3 (50 Mcg = 2000 Iu)] 50 mcg PO DAILY 30 Days #30 tab Ondansetron Odt [Zofran ODT] 4 mg PO BID PRN PRN Reason: Nausea And Vomiting Aspirin EC [Ecotrin Low Dose] 81 mg PO DAILY 30 Days #30 tab Melatonin 5 mg PO HS 30 Days #30 tab Famotidine [Pepcid] 20 mg PO BID PRN 30 Days #60 tab PRN Reason: Heartburn Montelukast [Singulair] 10 mg PO HS 30 Days #30 tab lisinopriL [Zestril] 2.5 mg PO DAILY 30 Days #30 tab Discontinued traZODone HCL [Desyrel] 100 mg PO HS Doxycycline Hyclate 100 mg PO BID Albuterol Inhaler [Ventolin Hfa Inhaler] 1 - 2 puff INHALATION RT-QID PRN PRN Reason: Shortness Of Breath Varenicline [Chantix Starter Pack] 0.5 - 1 mg PO DIRECTED Discharge Medication List Nitroglycerin Sl Tabs [Nitrostat] 0.4 mg SL Q5M PRN 08/20/23 [History] metFORMIN HCL 1,000 mg PO BID 10/06/23 [History] Ibuprofen [Motrin] 800 mg PO Q8H PRN 12/06/23 [History] Insulin Glargine,Hum.rec.anlog [Lantus Solostar Pen] 10 units SQ HS 12/06/23 [ History] Meloxicam [Mobic] 7.5 mg PO DAILY PRN 12/06/23 [History] Ondansetron Odt [Zofran ODT] 4 mg PO BID PRN 12/06/23 [History] ARIPiprazole [Abilify] 15 mg PO DAILY 30 Days #30 tab 12/13/23 [Rx] Albuterol Nebulized [Ventolin Nebulized] 2.5 mg INHALATION RT-Q6H PRN #1 ml 12/13/23 [Rx] Aspirin EC [Ecotrin Low Dose] 81 mg PO DAILY 30 Days #30 tab 12/13/23 [Rx] Atorvastatin [Lipitor] 10 mg PO HS 30 Days #30 tab 12/13/23 [Rx] Budesonide-Formot 160-4.5 Mcg [Symbicort 160-4.5 Mcg Inhaler] 2 puff INHALATION RT-BID 30 Days #1 each 12/13/23 [Rx] Cholecalciferol (Vitamin D3) [Vitamin D3 (50 Mcg = 2000 Iu)] 50 mcg PO DAILY 30 Days #30 tab 12/13/23 [Rx] Esomeprazole Magnesium [NexIUM] 40 mg PO DAILY 30 Days #30 cap 12/13/23 [Rx] Famotidine [Pepcid] 20 mg PO BID PRN 30 Days #60 tab 12/13/23 [Rx] Ipratropium-Albuterol Nebulize [Duoneb 0.5 mg-3 mg/3 ml Soln] 3 ml INHALATION RT-QID PRN 30 Days #1 each 12/13/23 [Rx] Melatonin 5 mg PO HS 30 Days #30 tab 12/13/23 [Rx] Metoclopramide [Reglan] 5 mg PO AC-TID 10 Days #30 tab 12/13/23 [Rx] Mirtazapine [Remeron] 15 mg PO HS 30 Days #30 tab 12/13/23 [Rx] Montelukast [Singulair] 10 mg PO HS 30 Days #30 tab 12/13/23 [Rx] Nicotine 14Mg/24Hr Patch [Habitrol] 1 patch TRANSDERM DAILY 14 Days #14 patch 12/13/23 [Rx] Sertraline [Zoloft] 100 mg PO HS 30 Days #30 tab 12/13/23 [Rx] hydrOXYzine pamoate [Vistaril] 25 mg PO DAILY PRN 30 Days #30 cap 12/13/23 [Rx] lisinopriL [Zestril] 2.5 mg PO DAILY 30 Days #30 tab 12/13/23 [Rx] Follow up Appointment(s)/Referral(s): [facility] [Outside] - 12/20/23 10:00 am (12/20/2023 10:00AM - 11:00AM RAINE VALERO 12/22/2023 10:00AM - 10:30AM VIRGIL COLEMAN ) Ramya Saul MD [Primary Care Provider] - 1-2 days Patient Instructions/Handouts: How to Stop Smoking (DC), Depression (DC) Activity/Diet/Wound Care/Special Instructions: Avoid the use of street drugs and alcohol. Take all medications as prescribed. When you are in need of refills on your medications, please contact your medical provider and/or outpatient psychiatrist/provider to have this done. Please go to your scheduled outpatient appointment for aftercare treatment. If symptoms return or become worse, call the crisis line at and/or go to the nearest emergency room for evaluation. National Suicide Hotline 988 Discharge Disposition: HOME SELF-CARE
== END 2023-12-13 13:28 | disposition home or self-care (01) | DRG 885 ==
LOC: EC 09:08 → 3MHU 19:58
PROVIDERS: ADMIT Psychiatry & Neurology Psychiatry; ATTEND Psychiatry & Neurology Psychiatry
DX: F20.9 Schizophrenia, unspecified (principal); R45.851 Suicidal ideations; E11.9 Type 2 diabetes mellitus without complications; K21.9 Gastro-esophageal reflux disease without esophagitis; H91.90 Unspecified hearing loss, unspecified ear; E78.5 Hyperlipidemia, unspecified; F31.9 Bipolar disorder, unspecified; I10 Essential (primary) hypertension; K76.9 Liver disease, unspecified; M19.90 Unspecified osteoarthritis, unspecified site; J44.89 Other specified chronic obstructive pulmonary disease; G40.909 Epilepsy, unspecified, not intractable, without status epilepticus; G89.29 Other chronic pain; G47.33 Obstructive sleep apnea (adult) (pediatric); F41.9 Anxiety disorder, unspecified; F17.210 Nicotine dependence, cigarettes, uncomplicated; F10.11 Alcohol abuse, in remission; Z86.73 Personal history of transient ischemic attack (TIA), and cerebral infarction without residual deficits; Z87.01 Personal history of pneumonia (recurrent); Z79.899 Other long term (current) drug therapy; Z79.84 Long term (current) use of oral hypoglycemic drugs; Z79.82 Long term (current) use of aspirin; Z79.4 Long term (current) use of insulin; Z79.1 Long term (current) use of non-steroidal anti-inflammatories (NSAID); Z11.52 Encounter for screening for COVID-19; Z88.8 Allergy status to other drugs, medicaments and biological substances; Z91.040 Latex allergy status; Z56.0 Unemployment, unspecified
CPT/HCPCS: 36415; 71045; 80053; 80061; 80306; 81003; 82075; 83036; 84443; 84484; 85025; 87635; 94640; 99285

== ENCOUNTER 2023-12-20 13:06 | Emergency (ER) | payer MEDICARE, OTHER ==
[2023-12-20 13:16] VITALS: RESP 16
--- NOTE | 2023-12-20 13:37 | ED ---
General Adult HPI - General Chief complaint: Extremity Problem,Nontraumatic Stated complaint: ankle injury Time Seen by Provider: 12/20/23 13:24 Source: patient, RN notes reviewed Mode of arrival: ambulatory Limitations: no limitations - History of Present Illness Initial comments: Patient is a 53-year-old male presenting to the emergency department with concerns for left ankle discomfort. Patient states he was walking on it a lot yesterday. Patient questions whether or not he may have twisted it however does not recall doing this. Patient is able to ambulate. No history of chronic similar symptoms. Patient requests an Samm wrap. - Related Data Home Medications Medication Instructions Recorded Confirmed Nitroglycerin Sl Tabs [Nitrostat] 0.4 mg SL Q5M PRN 08/20/23 12/06/23 metFORMIN HCL 1,000 mg PO BID 10/06/23 12/06/23 Ibuprofen [Motrin] 800 mg PO Q8H PRN 12/06/23 12/06/23 Insulin Glargine,Hum.rec.anlog 10 units SQ HS 12/06/23 12/06/23 [Lantus Solostar Pen] Meloxicam [Mobic] 7.5 mg PO DAILY PRN 12/06/23 12/06/23 Ondansetron Odt [Zofran ODT] 4 mg PO BID PRN 12/06/23 12/06/23 Previous Rx's Medication Instructions Recorded ARIPiprazole [Abilify] 15 mg PO DAILY 30 Days #30 tab 12/13/23 Albuterol Nebulized [Ventolin 2.5 mg INHALATION RT-Q6H PRN #1 ml 12/13/23 Nebulized] Aspirin EC [Ecotrin Low Dose] 81 mg PO DAILY 30 Days #30 tab 12/13/23 Atorvastatin [Lipitor] 10 mg PO HS 30 Days #30 tab 12/13/23 Budesonide-Formot 160-4.5 Mcg 2 puff INHALATION RT-BID 30 Days 12/13/23 [Symbicort 160-4.5 Mcg Inhaler] #1 each Cholecalciferol (Vitamin D3) 50 mcg PO DAILY 30 Days #30 tab 12/13/23 [Vitamin D3 (50 Mcg = 2000 Iu)] Esomeprazole Magnesium [NexIUM] 40 mg PO DAILY 30 Days #30 cap 12/13/23 Famotidine [Pepcid] 20 mg PO BID PRN 30 Days #60 tab 12/13/23 Ipratropium-Albuterol Nebulize 3 ml INHALATION RT-QID PRN 30 Days 12/13/23 [Duoneb 0.5 mg-3 mg/3 ml Soln] #1 each Melatonin 5 mg PO HS 30 Days #30 tab 12/13/23 Mirtazapine [Remeron] 15 mg PO HS 30 Days #30 tab 12/13/23 Montelukast [Singulair] 10 mg PO HS 30 Days #30 tab 12/13/23 Nicotine 14Mg/24Hr Patch [Habitrol] 1 patch TRANSDERM DAILY 14 Days 12/13/23 #14 patch Sertraline [Zoloft] 100 mg PO HS 30 Days #30 tab 12/13/23 hydrOXYzine pamoate [Vistaril] 25 mg PO DAILY PRN 30 Days #30 cap 12/13/23 lisinopriL [Zestril] 2.5 mg PO DAILY 30 Days #30 tab 12/13/23 Allergies Allergy/AdvReac Type Severity Reaction Status Date / Time dicyclomine HCl [From Bentyl] Allergy Unknown Dyspnea Verified 12/20/23 13:16 latex Allergy Unknown Rash/Hives Verified 12/20/23 13:16 Benzoate Analogues Allergy Unknown Verified 12/20/23 13:16 nitrofurantoin Allergy Nausea Verified 12/20/23 13:16 [From Macrobid] Penicillins Allergy "[place] Verified 12/20/23 13:16 funny" adhesive AdvReac Unknown Itching Verified 12/20/23 13:16 ciprofloxacin AdvReac Unknown Nausea Verified 12/20/23 13:16 Macrolide Antibiotics AdvReac Unknown Nausea Verified 12/20/23 13:16 sulfamethoxazole AdvReac Unknown Unknown Verified 12/20/23 13:16 [From Bactrim] trimethoprim [From Bactrim] AdvReac Unknown Unknown Verified 12/20/23 13:16 diphenhydramine AdvReac Confusion Verified 12/20/23 13:16 [From Benadryl] Review of Systems ROS Statement: Those systems with pertinent positive or pertinent negative responses have been documented in the HPI. ROS Other: All systems not noted in ROS Statement are negative. Constitutional: Denies: fever Eyes: Denies: eye pain ENT: Denies: ear pain Respiratory: Denies: cough Musculoskeletal: Reports: as per HPI Past Medical History Past Medical History: Asthma, Chest Pain / Angina, COPD, CVA/TIA, Diabetes Mellitus, GERD/Reflux, Hearing Disorder / Deafness, Hyperlipidemia, Hypertension, Liver Disease, Osteoarthritis (OA), Pneumonia, Seizure Disorder, Sleep Apnea/CPAP/BIPAP Additional Past Medical History / Comment(s): states CVA at 35 yrs old, no weakness @ this time. states seizure at 35 yrs old., DDD- back & neck pain., carpal tunnel syndrome. Has [facility] public guardian. History of Any Multi-Drug Resistant Organisms: None Reported Past Surgical History: Heart Catheterization, Orthopedic Surgery Additional Past Surgical History / Comment(s): Cysts removed, left thumb surgery, colonoscopy 08/24/2019. Skin tags removed from both eyes. Past Anesthesia/Blood Transfusion Reactions: Unable to Obtain, Motion Sickness, Postoperative Nausea & Vomiting (PONV) Past Psychological History: Anxiety, Bipolar, Depression, Schizophrenia Smoking Status: Current every day smoker Past Alcohol Use History: None Reported Past Drug Use History: None Reported - Past Family History Brother(s) Family Medical History: Diabetes Mellitus Additional Family Medical History / Comment(s): Patient has 2 brothers. One from complications from diabetes. The second is alive with diabetes. Sister(s) Family Medical History: Cancer Additional Family Medical History / Comment(s): Patient has one sister with breast cancer. Patient does not have any children. Father Family Medical History: Cancer Additional Family Medical History / Comment(s): Father in his 40s or 50s from colon cancer. Mother Family Medical History: Cancer Additional Family Medical History / Comment(s): Mother at age 68 from lung cancer. General Exam Limitations: no limitations General appearance: alert, in no apparent distress Head exam: Present: normocephalic Eye exam: Present: normal appearance Neck exam: Present: normal inspection Respiratory exam: Present: normal lung sounds bilaterally Cardiovascular Exam: Present: regular rate, normal rhythm Expanded Peripheral pulses: 2+: Posterior Tibialis (L), Dorsalis Pedis (L) GI/Abdominal exam: Present: soft. Absent: tenderness Extremities exam: Present: normal inspection, full ROM. Absent: tenderness, pedal edema, calf tenderness Neurological exam: Present: alert Psychiatric exam: Present: normal affect, normal mood Skin exam: Present: normal color Course Vital Signs 12/20/23 13:14 Temperature 98.4 F Pulse Rate 67 Respiratory 16 Rate Blood Pressure 110/73 O2 Sat by Pulse 98 Oximetry Medical Decision Making - Medical Decision Making Was pt. sent in by a medical professional or institution (, PA, HIGH SCHOOL COMBINATION TEACHER, urgent care, hospital, or [facility]...) When possible be specific @ -No Did you speak to anyone other than the patient for history (EMS, parent, family, police, friend...)? What history was obtained from this source @ -No Did you review nursing and triage notes (agree or disagree)? Why? @ -I reviewed and agree with nursing and triage notes Were old charts reviewed (outside hosp., previous admission, EMS record, old EKG, old radiological studies, urgent care reports/EKG's, [facility] records)? Report findings @ -No old charts were reviewed Differential Diagnosis (chest pain, altered mental status, abdominal pain women, abdominal pain men, vaginal bleeding, weakness, fever, dyspnea, syncope, headache, dizziness, GI bleed, back pain, seizure, CVA, palpatations, mental health, musculoskeletal)? @ -Differential Musculoskeletal Muscular strain, contusion, ligament sprain, fracture, arthritis, septic arthritis, bursitis, cellulitis, muscle spasm, nerve compression, DVT, arterial occlusion, herpes zoster, electrolyte abnormality, tumor.... This is not meant to be in all inclusive list EKG interpreted by me (3pts min.). @ -As above X-rays interpreted by me (1pt min.). @ -None done CT interpreted by me (1pt min.). @ -None done U/S interpreted by me (1pt. min.). @ -None done What testing was considered but not performed or refused? (CT, X-rays, U/S, labs)? Why? @ -Considered imaging however patient has no bony tenderness. What meds were considered but not given or refused? Why? @ -None Did you discuss the management of the patient with other professionals (professionals i.e. SEAN Cordova, HIGH SCHOOL COMBINATION TEACHER, lab, RT, psych nurse, social media strategist, manager of procurement, teacher, armor officer, catalytic case operator)? Give summary @ -No Was smoking cessation discussed for >3mins.? @ -No Was critical care preformed (if so, how long)? @ -No Were there social determinants of health that impacted care today? How? (Homelessness, low income, unemployed, alcoholism, drug addiction, transportation, low edu. Level, literacy, decrease access to med. care, senior care, rehab)? @ -No Was there de-escalation of care discussed even if they declined (Discuss DNR or withdrawal of care, Hospice)? DNR status @ -No What co-morbidities impacted this encounter? (DM, HTN, Smoking, COPD, CAD, Cancer, CVA, ARF, Chemo, Hep., AIDS, mental health diagnosis, sleep apnea, morbid obesity)? @ -None Was patient admitted / discharged? Hospital course, mention meds given and route , prescriptions, significant lab abnormalities, going to OR and other pertinent info. @ -Patient presents with left foot and ankle discomfort. Patient was walking on it a lot yesterday. Patient requests a prescription. Patient does not feel x-ray is necessary. Patient is receptive to Tylenol. Patient will be discharged. Undiagnosed new problem with uncertain prognosis? @ -No Drug Therapy requiring intensive monitoring for toxicity (Heparin, Nitro, Insulin, Cardizem)? @ -No Were any procedures done? @ -No Diagnosis/symptom? @ -Left ankle strain Acute, or Chronic, or Acute on Chronic? @ -Acute Uncomplicated (without systemic symptoms) or Complicated (systemic symptoms)? @ -Default Side effects of treatment? @ -No Exacerbation, Progression, or Severe Exacerbation? @ -No Poses a threat to life or bodily function? How? (Chest pain, USA, MS, pneumonia, PE, COPD, DKA, ARF, appy, cholecystitis, CVA, Diverticulitis, Homicidal, Suicidal, threat to staff... and all critical care pts) @ -No Disposition Clinical Impression: Ankle strain Disposition: HOME SELF-CARE Condition: Stable Instructions (If sedation given, give patient instructions): Ankle Strain (ED) Additional Instructions: Please do follow-up with your primary care physician in the next day or 2 for recheck. Ice to affected area. [id number] Tylenol as needed. Return for increased pain, fever, swelling, redness, worsening or changing symptoms or other concerns Is patient prescribed a controlled substance at d/c from ED?: No Referrals: Ramya aSul MD [Primary Care Provider] - 1-2 days Time of Disposition: 13:36
[2023-12-20] MEDS: ACETAMINOPHEN TAB 500 MG TAB PO STA (13:43)
[2023-12-20 13:51] VITALS: BP 112/68; PULSE 70; TEMP 98
== END 2023-12-20 13:51 | disposition home or self-care (01) ==
LOC: EC 13:06
DX: S96.912A Strain of unspecified muscle and tendon at ankle and foot level, left foot, initial encounter (principal); F17.200 Nicotine dependence, unspecified, uncomplicated; Z88.0 Allergy status to penicillin; Z88.1 Allergy status to other antibiotic agents; Z88.2 Allergy status to sulfonamides; Z88.8 Allergy status to other drugs, medicaments and biological substances; Z91.040 Latex allergy status; Z86.73 Personal history of transient ischemic attack (TIA), and cerebral infarction without residual deficits; X58.XXXA Exposure to other specified factors, initial encounter; Y93.01 Activity, walking, marching and hiking
CPT/HCPCS: 99283

== ENCOUNTER 2023-12-21 07:26 | Observation (INO) | payer MEDICARE, OTHER ==
[2023-12-21 07:42] LABS: Glucose,Whole Blood 161 mg/dL (70-110)
--- NOTE | 2023-12-21 07:57 | ED ---
General Adult HPI - General Chief complaint: Nausea/Vomiting/Diarrhea Stated complaint: NVD Time Seen by Provider: 12/21/23 07:45 Source: patient Mode of arrival: EMS - History of Present Illness Initial comments: Dictation was produced using [employer] dictation software. please excuse any grammatical, word or spelling errors. Chief Complaint: 53-year-old male presents to the ER for chest pain, abdominal pain, shoulder pain and diarrhea History of Present Illness: Patient is a 53-year-old male who is brought in from home by EMS. This is patient's second visit in the last 3 to 4 days. This is his sixth or seventh visit this month. Patient states that he woke up this morn ing with chest pain. States that it sharp. Also feels like it is in his epigastrium. Radiates to his right shoulder. States that it is also associate with nausea vomiting. Denies any diaphoresis. He also has some diarrhea. Patient states he does not feel well. He called EMS was brought to the ER. Patient has multiple comorbidities including tobacco abuse, COPD diabetes. He has reportedly no known history of coronary artery disease. Patient initially called ambulance for diarrhea according to EMS. He did report to me that he did have some chest pain that he did not mention to paramedics. The ROS documented in this emergency department record has been reviewed and confirmed by me. Those systems with pertinent positive or negative responses have been documented in the HPI. All other systems are other negative and/or noncontributory. - Related Data Home Medications Medication Instructions Recorded Confirmed Nitroglycerin Sl Tabs [Nitrostat] 0.4 mg SL Q5M PRN 08/20/23 12/21/23 metFORMIN HCL 1,000 mg PO BID 10/06/23 12/21/23 Ibuprofen [Motrin] 800 mg PO Q8H PRN 12/06/23 12/21/23 Insulin Glargine,Hum.rec.anlog 10 units SQ HS 12/06/23 12/21/23 [Lantus Solostar Pen] Meloxicam [Mobic] 7.5 mg PO DAILY PRN 12/06/23 12/21/23 Ondansetron Odt [Zofran ODT] 4 mg PO BID PRN 12/06/23 12/21/23 glipiZIDE [Glucotrol] 5 mg PO AC-BID 12/21/23 12/21/23 Previous Rx's Medication Instructions Recorded ARIPiprazole [Abilify] 15 mg PO DAILY 30 Days #30 tab 12/13/23 Albuterol Nebulized [Ventolin 2.5 mg INHALATION RT-Q6H PRN #1 ml 12/13/23 Nebulized] Aspirin EC [Ecotrin Low Dose] 81 mg PO DAILY 30 Days #30 tab 12/13/23 Atorvastatin [Lipitor] 10 mg PO HS 30 Days #30 tab 12/13/23 Budesonide-Formot 160-4.5 Mcg 2 puff INHALATION RT-BID 30 Days 12/13/23 [Symbicort 160-4.5 Mcg Inhaler] #1 each Cholecalciferol (Vitamin D3) 50 mcg PO DAILY 30 Days #30 tab 12/13/23 [Vitamin D3 (50 Mcg = 2000 Iu)] Esomeprazole Magnesium [NexIUM] 40 mg PO DAILY 30 Days #30 cap 12/13/23 Famotidine [Pepcid] 20 mg PO BID PRN 30 Days #60 tab 12/13/23 Ipratropium-Albuterol Nebulize 3 ml INHALATION RT-QID PRN 30 Days 12/13/23 [Duoneb 0.5 mg-3 mg/3 ml Soln] #1 each Melatonin 5 mg PO HS 30 Days #30 tab 12/13/23 Mirtazapine [Remeron] 15 mg PO HS 30 Days #30 tab 12/13/23 Montelukast [Singulair] 10 mg PO HS 30 Days #30 tab 12/13/23 Nicotine 14Mg/24Hr Patch [Habitrol] 1 patch TRANSDERM DAILY 14 Days 12/13/23 #14 patch Sertraline [Zoloft] 100 mg PO HS 30 Days #30 tab 12/13/23 hydrOXYzine pamoate [Vistaril] 25 mg PO DAILY PRN 30 Days #30 cap 12/13/23 lisinopriL [Zestril] 2.5 mg PO DAILY 30 Days #30 tab 12/13/23 Allergies Allergy/AdvReac Type Severity Reaction Status Date / Time dicyclomine HCl [From Bentyl] Allergy Unknown Dyspnea Verified 12/21/23 10:32 latex Allergy Unknown Rash/Hives Verified 12/21/23 10:32 Benzoate Analogues Allergy Unknown Verified 12/21/23 10:32 nitrofurantoin Allergy Nausea Verified 12/21/23 10:32 [From Macrobid] Penicillins Allergy "[place] Verified 12/21/23 10:32 funny" adhesive AdvReac Unknown Itching Verified 12/21/23 10:32 ciprofloxacin AdvReac Unknown Nausea Verified 12/21/23 10:32 Macrolide Antibiotics AdvReac Unknown Nausea Verified 12/21/23 10:32 sulfamethoxazole AdvReac Unknown Unknown Verified 12/21/23 10:32 [From Bactrim] trimethoprim [From Bactrim] AdvReac Unknown Unknown Verified 12/21/23 10:32 diphenhydramine AdvReac Confusion Verified 12/21/23 10:32 [From Benadryl] Review of Systems ROS Statement: Those systems with pertinent positive or pertinent negative responses have been documented in the HPI. ROS Other: All systems not noted in ROS Statement are negative. Past Medical History Past Medical History: Asthma, Chest Pain / Angina, COPD, CVA/TIA, Diabetes Mellitus, GERD/Reflux, Hearing Disorder / Deafness, Hyperlipidemia, Hypertension, Liver Disease, Osteoarthritis (OA), Pneumonia, Seizure Disorder, Sleep Apnea/CPAP/BIPAP Additional Past Medical History / Comment(s): states CVA at 35 yrs old, no weakness @ this time. states seizure at 35 yrs old., DDD- back & neck pain., carpal tunnel syndrome. Has [facility] public guardian. History of Any Multi-Drug Resistant Organisms: None Reported Past Surgical History: Heart Catheterization, Orthopedic Surgery Additional Past Surgical History / Comment(s): Cysts removed, left thumb surgery, colonoscopy 08/24/2019. Skin tags removed from both eyes. Past Anesthesia/Blood Transfusion Reactions: Unable to Obtain, Motion Sickness, Postoperative Nausea & Vomiting (PONV) Past Psychological History: Anxiety, Bipolar, Depression, Schizophrenia Smoking Status: Current every day smoker Past Alcohol Use History: None Reported Past Drug Use History: None Reported - Past Family History Brother(s) Family Medical History: Diabetes Mellitus Additional Family Medical History / Comment(s): Patient has 2 brothers. One from complications from diabetes. The second is alive with diabetes. Sister(s) Family Medical History: Cancer Additional Family Medical History / Comment(s): Patient has one sister with breast cancer. Patient does not have any children. Father Family Medical History: Cancer Additional Family Medical History / Comment(s): Father in his 40s or 50s from colon cancer. Mother Family Medical History: Cancer Additional Family Medical History / Comment(s): Mother at age 68 from lung cancer. General Exam - General Exam Comments Initial Comments: PHYSICAL EXAM: General Impression: Alert and oriented x3, not in acute distress HEENT: Normocephalic atraumatic, extra-ocular movements intact, pupils equal and reactive to light bilaterally, mucous membranes moist. Cardiovascular: Heart regular rate and rhythm Chest: Able to complete full sentences, no retractions, no tachypnea Abdomen: abdomen soft, non-tender, non-distended, no organomegaly Musculoskeletal: Pulses present and equal in all extremities, no peripheral edema Motor: no focal deficits noted Neurological: CN II-XII grossly intact, no focal motor or sensory deficits noted Skin: Intact with no visualized rashes Psych: Normal affect and mood Course Vital Signs 12/21/23 07:33 Temperature 98.3 F Pulse Rate 60 Respiratory 18 Rate Blood Pressure 113/98 O2 Sat by Pulse 98 Oximetry EKG Findings - EKG Comments: EKG Findings:: My EKG interpretation: Ventricular rate 53, sinus bradycardia,. MS 153, qrs 99, QTc 413. No MS prolongation, no QTC prolongation, no ST or T- wave changes noted. Overall, this EKG is unremarkable Medical Decision Making - Medical Decision Making Was pt. sent in by a medical professional or institution (SEAN Cordova, PARAPROFESSIONAL AIDE TEACHER, urgent care, hospital, or senior care...) When possible be specific @ -No Did you speak to anyone other than the patient for history (EMS, parent, family, police, friend...)? What history was obtained from this source @ -No Did you review nursing and triage notes (agree or disagree)? Why? @ -I reviewed and agree with nursing and triage notes Were old charts reviewed (outside hosp., previous admission, EMS record, old EKG, old radiological studies, urgent care reports/EKG's, senior care records)? Report findings @ -No old charts were reviewed Differential Diagnosis (chest pain, altered mental status, abdominal pain women, abdominal pain men, vaginal bleeding, musculoskeletal, weakness, fever, dyspnea, syncope, headache, dizziness, GI bleed, back pain, seizure, CVA, palpatations, mental health)? @ -Differential Chest Pain: Stable Angina, Unstable Angina, STEMI, NSTEMI Aortic Dissection, Pneumothorax, Musculoskeletal, Esophageal Spasm GERD, Cholecystitis, Pancreatitis, Zoster, this is not meant to be an all-inclusive list. EKG interpreted by me (3pts min.). @ -See above X-rays interpreted by me (1pt min.). @ -Chest x-ray is nonacute CT interpreted by me (1pt min.). @ -None done U/S interpreted by me (1pt. min.). @ -None done What testing was considered but not performed or refused? (CT, X-rays, U/S, labs)? Why? @ -None What meds were considered but not given or refused? Why? @ -None Was smoking cessation discussed for >3mins.? @ -No Were there social determinants of health that impacted care today? How? (Homelessness, low income, unemployed, alcoholism, drug addiction, transportation, low edu. Level, literacy, decrease access to med. care, skilled nursing, rehab)? @ -No Was there de-escalation of care discussed even if they declined (Discuss DNR or withdrawal of care, Hospice)? DNR status @ -No What co-morbidities impacted this encounter? (DM, HTN, Smoking, COPD, CAD, Cancer, CVA, ARF, Chemo, Hep., AIDS, mental health diagnosis, sleep apnea, morbid obesity)? @ -None Was patient admitted / discharged? Hospital course, mention meds given and route, prescriptions, significant lab abnormalities, going to OR and other pertinent info. @ -53-year-old male presents to the emergency department for chest pain. Patient is well-known to the emergency department for multiple visitation has not been admitted to the hospital with cardiology consultation in several mon ths. Patient has an outdated cardiac cath that showed normal coronary arteries approximately 6 years ago. Laboratory evaluation is unremarkable. Troponin is negative. Chest x-ray is unremarkable. Patient given aspirin. Patient will be admitted consultation cardiology. For cardiac monitoring, serial troponins and cardiology consultation. Did you discuss the management of the patient with other professionals (professionals i.e. , PA, PARAPROFESSIONAL AIDE TEACHER, lab, RT, psych nurse, social sciences chair, radio station audio engineer, teacher, housing management officer, case management coordinator)? Give summary @ -No Was critical care preformed (if so, how long)? @ -No Undiagnosed new problem with uncertain prognosis? @ -No Drug Therapy requiring intensive monitoring for toxicity (Heparin, Nitro, Insulin, Cardizem)? @ -No Were any procedures done? @ -No Diagnosis/symptom? Acute, or Chronic, or Acute on Chronic? Uncomplicated (without systemic symptoms) or Complicated (systemic symptoms)? @ -Atypical chest pain typical features Side effects of treatment? @ -No Exacerbation, Progression, or Severe Exacerbation? @ -No Poses a threat to life or bodily function? How? (Chest pain, USA, MS, pneumonia, PE, COPD, DKA, ARF, appy, cholecystitis, CVA, Diverticulitis, Homicidal, Suicidal, threat to staff... and all critical care pts) @ -yes - Lab Data Result diagrams: 12/21/23 07:59 12/21/23 07:59 Lab Results 12/21/23 12/21/23 12/21/23 Range/Units 07:40 07:59 07:59 WBC 7.1 (3.8-10.6) k/uL RBC 4.82 (4.30-5.90) m/uL Hgb 15.0 (13.0-17.5) gm/dL Hct 44.7 (39.0-53.0) % MCV 92.8 (80.0-100.0) fL MCH 31.1 (25.0-35.0) pg MCHC 33.5 (31.0-37.0) g/dL RDW 13.3 (11.5-15.5) % Plt Count 210 (150-450) k/uL MPV 7.8 Neutrophils % 70 % Lymphocytes % 19 % Monocytes % 6 % Eosinophils % 3 % Basophils % 0 % Neutrophils # 5.0 (1.3-7.7) k/uL Lymphocytes # 1.3 (1.0-4.8) k/uL Monocytes # 0.4 (0-1.0) k/uL Eosinophils # 0.2 (0-0.7) k/uL Basophils # 0.0 (0-0.2) k/uL PT 10.1 (10.0-12.5) sec INR 0.9 (<1.2) APTT 23.1 (22.0-30.0) sec Sodium (137-145) mmol/L Potassium (3.5-5.1) mmol/L Chloride (98-107) mmol/L Carbon Dioxide (22-30) mmol/L Anion Gap mmol/L BUN (9-20) mg/dL Creatinine (0.66-1.25) mg/dL Est GFR (CKD-EPI)AfAm (>60 ml/min/1.73 sqM) Est GFR (CKD-EPI)NonAf (>60 ml/min/1.73 sqM) Glucose (74-99) mg/dL POC Glucose (mg/dL) 161 H (70-110) mg/dL POC Glu Marketing Teacher ID Ray Flores Calcium (8.4-10.2) mg/dL Magnesium (1.6-2.3) mg/dL Total Bilirubin (0.2-1.3) mg/dL AST (17-59) U/L ALT (4-49) U/L Alkaline Phosphatase (38-126) U/L Troponin I (0.000-0.034) ng/mL Total Protein (6.3-8.2) g/dL Albumin (3.5-5.0) g/dL 12/21/23 12/21/23 Range/Units 07:59 07:59 WBC (3.8-10.6) k/uL RBC (4.30-5.90) m/uL Hgb (13.0-17.5) gm/dL Hct (39.0-53.0) % MCV (80.0-100.0) fL MCH (25.0-35.0) pg MCHC (31.0-37.0) g/dL RDW (11.5-15.5) % Plt Count (150-450) k/uL MPV Neutrophils % % Lymphocytes % % Monocytes % % Eosinophils % % Basophils % % Neutrophils # (1.3-7.7) k/uL Lymphocytes # (1.0-4.8) k/uL Monocytes # (0-1.0) k/uL Eosinophils # (0-0.7) k/uL Basophils # (0-0.2) k/uL PT (10.0-12.5) sec INR (<1.2) APTT (22.0-30.0) sec Sodium 140 (137-145) mmol/L Potassium 4.1 (3.5-5.1) mmol/L Chloride 113 H (98-107) mmol/L Carbon Dioxide 23 (22-30) mmol/L Anion Gap 4 mmol/L BUN 13 (9-20) mg/dL Creatinine 0.60 L (0.66-1.25) mg/dL Est GFR (CKD-EPI)AfAm >90 (>60 ml/min/1.73 sqM) Est GFR (CKD-EPI)NonAf >90 (>60 ml/min/1.73 sqM) Glucose 146 H (74-99) mg/dL POC Glucose (mg/dL) (70-110) mg/dL POC Glu Marketing Teacher ID Calcium 9.0 (8.4-10.2) mg/dL Magnesium 1.9 (1.6-2.3) mg/dL Total Bilirubin 0.5 (0.2-1.3) mg/dL AST 27 (17-59) U/L ALT 45 (4-49) U/L Alkaline Phosphatase 72 (38-126) U/L Troponin I <0.012 (0.000-0.034) ng/mL Total Protein 5.9 L (6.3-8.2) g/dL Albumin 3.9 (3.5-5.0) g/dL Disposition Clinical Impression: Chest pain Disposition: ADMITTED IP TO THIS HOSP Condition: Fair Referrals: Ramya Saul MD [Primary Care Provider] - 1-2 days Decision Time: 11:15
[2023-12-21] MEDS: ASPIRIN 81 MG PO STA (08:01)
--- NOTE | 2023-12-21 08:47 | XR ---
EXAMINATION TYPE: XR chest 2V DATE OF EXAM: 12/21/2023 8:23 AM CLINICAL INDICATION:Male, 53 years old with history of Chest Pain; COMPARISON: Chest radiographs from 12/07/2023, 04/17/2010. TECHNIQUE: XR chest 2V Frontal and lateral views of the chest. FINDINGS: Lungs/Pleura: There is no evidence of pleural effusion, focal consolidation, or pneumothorax. Pulmonary vascularity: Unremarkable. Heart/mediastinum: Cardiomediastinal silhouette is unremarkable. Musculoskeletal: No acute osseous pathology. Peripherally calcified lesion in the left upper quadrant. Cystic lesion is seen in this area on 04/17. IMPRESSION: No acute cardiopulmonary disease/process. Upper abdominal peripheral calcified lesion possibly relating to splenic pseudocyst
[2023-12-21 08:50] LABS: Basophils % (A) 0 %; Eosinophils # (A) 0.2 k/uL (0-0.7); Eosinophils % (A) 3 %; HCT 44.7 % (39.0-53.0); Lymphocytes # (A) 1.3 k/uL (1.0-4.8); Lymphocytes % (A) 19 %; MCH 31.1 pg (25.0-35.0); MCHC 33.5 g/dL (31.0-37.0); MCV 92.8 fL (80.0-100.0); Mean Platelet Volume 7.8; Monocytes # (A) 0.4 k/uL (0-1.0); Monocytes % (A) 6 %; Neutrophils % (A) 70 %; Platelet Count 210 k/uL (150-450); RBC 4.82 m/uL (4.30-5.90); RDW 13.3 % (11.5-15.5); WBC 7.1 k/uL (3.8-10.6)
[2023-12-21 08:54] LABS: INR 0.9 (<1.2); Partial Thromboplastin Time 23.1 sec (22.0-30.0); Prothrombin Time 10.1 sec (10.0-12.5)
[2023-12-21 09:12] LABS: ALT 45 U/L (4-49); AST 27 U/L (17-59); African American GFR (CKD) >90 (>60 ml/min/1.73 sqM); Albumin 3.9 g/dL (3.5-5.0); Alkaline Phosphatase 72 U/L (38-126); Anion Gap 4 mmol/L; Blood Urea Nitrogen 13 mg/dL (9-20); Carbon Dioxide 23 mmol/L (22-30); Chloride 113 mmol/L (98-107); Glucose 146 mg/dL (74-99); Magnesium 1.9 mg/dL (1.6-2.3); Non-African American GFR(CKD) >90 (>60 ml/min/1.73 sqM); Potassium 4.1 mmol/L (3.5-5.1); Sodium 140 mmol/L (137-145); Total Bilirubin 0.5 mg/dL (0.2-1.3); Total Protein 5.9 g/dL (6.3-8.2)
[2023-12-21] MEDS ORDERED: NITROGLYCERIN SL TABS 0.4 MG TAB SUBLINGUAL PRN (11:09)
[2023-12-21] MEDS: HYDROcodone/APAP 5-325MG 1 EACH TAB PO STA (11:20)
[2023-12-21] MEDS ORDERED: FAMOTIDINE 20 MG TAB PO PRN (12:48)
[2023-12-21] MEDS ORDERED: IBUPROFEN 800 MG TAB PO PRN (12:48)
[2023-12-21] MEDS ORDERED: ALBUTEROL NEBULIZED 2.5 MG/3 ML INHALATION PRN (12:48)
[2023-12-21] MEDS ORDERED: hydrOXYzine pamoate 25 MG CAP PO PRN (12:48)
--- NOTE | 2023-12-21 12:49 | P.HPIM ---
History of Present Illness This is a pleasant 53 years old male with past medical history of multiple medical problems as below. Patient presents because of chest pain, patient states he has this chest pain for months and he needs to be checked out. It felt like nonspecific increased pain increased by movement surgical increased by movement associated with chest wall tenderness and actually it has improves with improves with deep inspiration Patient with no significant dyspnea and tachypnea, he was able to eat and talk at the same time with no problems. No cough and. No change in urine or bowel habits. No chills. No headache dizziness weakness or numbness He smokes cigarettes without specification he states few per day and he wants to quit and he wants nicotine patch. He denies alcohol or illicit drugs. Patient hemodynamically stable. Labs reviewed has unremarkable CBC, INR, BMP, liver enzymes and troponin. Chest x-ray: No acute process. Troponin x 2 are negative less than 0.012. EKG: S sinus bradycardia at [address]-T changes Review of Systems Review of systems CONSTITUTIONAL: No fever, no malaise, no fatigue. HEENT: No recent visual problems or hearing problems. Denied any sore throat. CARDIOVASCULAR: No orthopnea, PND, no palpitations, no syncope. PULMONARY: No shortness of breath, no cough, no hemoptysis. GASTROINTESTINAL: No diarrhea, no nausea, no vomiting, no abdominal pain. Normoactive bowel sounds. NEUROLOGICAL: No headaches, no weakness, no numbness. HEMATOLOGICAL: Denies any bleeding or petechiae. GENITOURINARY: Denies any burning micturition, frequency, or urgency. MUSCULOSKELETAL/RHEUMATOLOGICAL: Denies any joint pain, swelling, or any muscle pain. ENDOCRINE: Denies any polyuria or polydipsia. Past Medical History Past Medical History: Asthma, Chest Pain / Angina, COPD, CVA/TIA, Diabetes Mellitus, GERD/Reflux, Hearing Disorder / Deafness, Hyperlipidemia, Hypertensio n, Liver Disease, Osteoarthritis (OA), Pneumonia, Seizure Disorder, Sleep Apnea/CPAP/BIPAP Additional Past Medical History / Comment(s): states CVA at 35 yrs old, no weakness @ this time. states seizure at 35 yrs old., DDD- back & neck pain., carpal tunnel syndrome. Has [employer] public guardian. History of Any Multi-Drug Resistant Organisms: None Reported Past Surgical History: Heart Catheterization, Orthopedic Surgery Additional Past Surgical History / Comment(s): Cysts removed, left thumb surgery, colonoscopy 08/24/2019. Skin tags removed from both eyes. Past Anesthesia/Blood Transfusion Reactions: Unable to Obtain, Motion Sickness, Postoperative Nausea & Vomiting (PONV) Past Psychological History: Anxiety, Bipolar, Depression, Schizophrenia Smoking Status: Current every day smoker Past Alcohol Use History: None Reported Past Drug Use History: None Reported - Past Family History Brother(s) Family Medical History: Diabetes Mellitus Additional Family Medical History / Comment(s): Patient has 2 brothers. One from complications from diabetes. The second is alive with diabetes. Sister(s) Family Medical History: Cancer Additional Family Medical History / Comment(s): Patient has one sister with breast cancer. Patient does not have any children. Father Family Medical History: Cancer Additional Family Medical History / Comment(s): Father in his 40s or 50s from colon cancer. Mother Family Medical History: Cancer Additional Family Medical History / Comment(s): Mother at age 68 from lung cancer. Medications and Allergies Home Medications Medication Instructions Recorded Confirmed Type Nitroglycerin Sl Tabs [Nitrostat] 0.4 mg SL Q5M PRN 08/20/23 12/21/23 History metFORMIN HCL 1,000 mg PO BID 10/06/23 12/21/23 History Ibuprofen [Motrin] 800 mg PO Q8H PRN 12/06/23 12/21/23 History Insulin Glargine,Hum.rec.anlog 10 units SQ HS 12/06/23 12/21/23 History [Lantus Solostar Pen] Meloxicam [Mobic] 7.5 mg PO DAILY PRN 12/06/23 12/21/23 History Ondansetron Odt [Zofran ODT] 4 mg PO BID PRN 12/06/23 12/21/23 History ARIPiprazole [Abilify] 15 mg PO DAILY 30 Days #30 tab 12/13/23 12/21/23 Rx Albuterol Nebulized [Ventolin 2.5 mg INHALATION RT-Q6H PRN #1 ml 12/13/23 12/21/23 Rx Nebulized] Aspirin EC [Ecotrin Low Dose] 81 mg PO DAILY 30 Days #30 tab 12/13/23 12/21/23 Rx Atorvastatin [Lipitor] 10 mg PO HS 30 Days #30 tab 12/13/23 12/21/23 Rx Budesonide-Formot 160-4.5 Mcg 2 puff INHALATION RT-BID 30 Days 12/13/23 12/21/23 Rx [Symbicort 160-4.5 Mcg Inhaler] #1 each Cholecalciferol (Vitamin D3) 50 mcg PO DAILY 30 Days #30 tab 12/13/23 12/21/23 Rx [Vitamin D3 (50 Mcg = 2000 Iu)] Esomeprazole Magnesium [NexIUM] 40 mg PO DAILY 30 Days #30 cap 12/13/23 12/21/23 Rx Famotidine [Pepcid] 20 mg PO BID PRN 30 Days #60 tab 12/13/23 12/21/23 Rx Ipratropium-Albuterol Nebulize 3 ml INHALATION RT-QID PRN 30 Days 12/13/23 12/21/23 Rx [Duoneb 0.5 mg-3 mg/3 ml Soln] #1 each Melatonin 5 mg PO HS 30 Days #30 tab 12/13/23 12/21/23 Rx Mirtazapine [Remeron] 15 mg PO HS 30 Days #30 tab 12/13/23 12/21/23 Rx Montelukast [Singulair] 10 mg PO HS 30 Days #30 tab 12/13/23 12/21/23 Rx Nicotine 14Mg/24Hr Patch [Habitrol] 1 patch TRANSDERM DAILY 14 Days 12/13/23 12/21/23 Rx #14 patch Sertraline [Zoloft] 100 mg PO HS 30 Days #30 tab 12/13/23 12/21/23 Rx hydrOXYzine pamoate [Vistaril] 25 mg PO DAILY PRN 30 Days #30 cap 12/13/23 12/21/23 Rx lisinopriL [Zestril] 2.5 mg PO DAILY 30 Days #30 tab 12/13/23 12/21/23 Rx glipiZIDE [Glucotrol] 5 mg PO AC-BID 12/21/23 12/21/23 History Allergies Allergy/AdvReac Type Severity Reaction Status Date / Time dicyclomine HCl [From Bentyl] Allergy Unknown Dyspnea Verified 12/21/23 10:32 latex Allergy Unknown Rash/Hives Verified 12/21/23 10:32 Benzoate Analogues Allergy Unknown Verified 12/21/23 10:32 nitrofurantoin Allergy Nausea Verified 12/21/23 10:32 [From Macrobid] Penicillins Allergy "[place] Verified 12/21/23 10:32 funny" adhesive AdvReac Unknown Itching Verified 12/21/23 10:32 ciprofloxacin AdvReac Unknown Nausea Verified 12/21/23 10:32 Macrolide Antibiotics AdvReac Unknown Nausea Verified 12/21/23 10:32 sulfamethoxazole AdvReac Unknown Unknown Verified 12/21/23 10:32 [From Bactrim] trimethoprim [From Bactrim] AdvReac Unknown Unknown Verified 12/21/23 10:32 diphenhydramine AdvReac Confusion Verified 12/21/23 10:32 [From Benadryl] Physical Exam Vitals: Vital Signs Temp Pulse Resp BP Pulse Ox 12/21/23 07:33 98.3 F 60 18 113/98 98 Intake and Output 12/20/23 12/21/23 12/21/23 22:59 06:59 14:59 Other: Weight 170 kg GENERAL: The patient is alert and oriented x3, not in any acute distress. Well developed, well nourished. HEENT: Pupils are round and equally reacting to light. EOMI. No scleral icterus. No conjunctival pallor. Normocephalic, atraumatic. No pharyngeal erythema. No thyromegaly. CARDIOVASCULAR: S1 and S2 present. No murmurs, rubs, or gallops. PULMONARY: Chest is clear to auscultation, no wheezing , no crackles. ABDOMEN: Soft, nontender, nondistended, normoactive bowel sounds. No palpable organomegaly. MUSCULOSKELETAL: No joint swelling or deformity. EXTREMITIES: No cyanosis, clubbing, or pedal edema. NEUROLOGICAL: Gross neurological examination did not reveal any focal deficits. SKIN: No rashes. no petechiae. Results CBC & Chem 7: 12/21/23 07:59 12/21/23 07:59 Labs: Abnormal Lab Results - Last 24 Hours (Table) 12/21/23 12/21/23 Range/Units 07:40 07:59 Chloride 113 H (98-107) mmol/L Creatinine 0.60 L (0.66-1.25) mg/dL Glucose 146 H (74-99) mg/dL POC Glucose (mg/dL) 161 H (70-110) mg/dL Total Protein 5.9 L (6.3-8.2) g/dL Assessment and Plan Assessment: Chest pain, most likely musculoskeletal associated with chest wall tenderness, is chronic in nature and atypical of chest pain or pulmonary disease increased by movement as well COPD: No acute process Schizophrenia patient denies active hallucination or delusions History of CVA/TIA Diabetes mellitus Hypertension Hyperlipidemia History of osteoarthritis Seizure disorder Sleep apnea History of liver disease Plan: Continue with aspirin Cardiology consult Nicotine patch Lidocaine patch Labs and medication were reviewed.. Continue same treatment. Continue with symptomatic treatment. Resume home medication. Monitor lytes and vitals. DVT and GI prophylaxis. Further recommendations depends on the clinical course of the patient Prognosis is guarded
[2023-12-21] MEDS: NICOTINE 14MG/24HR PATCH TRANSDERM SCH (13:18)
[2023-12-21] MEDS: ONDANSETRON ODT 4 MG TAB PO PRN (13:25)
[2023-12-21] MEDS: IPRATROPIUM-ALBUTEROL 3 ML NEB INHALATION PRN (15:42)
[2023-12-21] MEDS: glipiZIDE 5 MG TAB PO SCH (18:02)
[2023-12-21] MEDS: TAMSULOSIN 0.4 MG CAP.ER.24H PO SCH (18:02)
[2023-12-21] MEDS: metFORMIN 500 MG TAB PO SCH (18:02)
[2023-12-21 18:36] LABS: Appearance,Urine Clear (Clear); Bilirubin,Urine Negative (Negative); Blood,Urine Negative (Negative); Color,Urine Colorless; Glucose,Urine (UA) 2+ (Negative); Ketones,Urine Negative (Negative); Leukocyte Esterase,Urine Negative (Negative); Nitrite,Urine Negative (Negative); PH, Urine 6.5 (5.0-8.0); Protein,Urine Negative (Negative); Specific Gravity,Urine 1.008 (1.001-1.035); Urobilinogen,Urine <2.0 mg/dL (<2.0)
[2023-12-21] MEDS: SYMBICORT 160-4.5 MCG INHALER INHALATION SCH (20:26)
[2023-12-21 20:42] LABS: Glucose,Whole Blood 71 mg/dL (70-110)
[2023-12-21] MEDS ORDERED: NON FORMULARY DRUG (Insulin Glargine,Hum.Rec.Anlog [Lantus Solostar Pen] 100 UNIT/ML Insul SQ SCH (21:00)
[2023-12-21] MEDS: INSULIN DETEMIR (LEVEMIR) 100 UNIT/ML SYR SQ SCH (21:07)
[2023-12-21] MEDS: MIRTAZAPINE 15 MG TAB PO SCH (21:33)
[2023-12-21] MEDS: MELATONIN 5 MG TABLET PO SCH (21:33)
[2023-12-21] MEDS: MONTELUKAST 10 MG TAB PO SCH (21:33)
[2023-12-21] MEDS: ATORVASTATIN 10 MG TAB PO SCH (21:33)
[2023-12-22 01:41] LABS: Glucose,Whole Blood 315 mg/dL (70-110)
[2023-12-22 06:03] LABS: Glucose,Whole Blood 181 mg/dL (70-110)
--- NOTE | 2023-12-22 07:23 | P.CRDCN ---
History of Present Illness Consult date: 12/21/23 Consult reason: chest pain History of present illness: This is a 53-year-old male patient of Dr. Shaquille Gonzalez with past medical history of hypertension, diabetes mellitus type 2, obstructive sleep apnea, stroke at age 35, depression, tobacco use and dependence. We have been asked to evaluate the patient for chest pain. Patient states that he developed chest pain stomach pain. He complains of right upper chest right shoulder pain that goes into the back of his neck. Pain is worse with movement of his right shoulder. He has not received any nitroglycerin. Patient is an active smoker of 1 pack/day. He denies any alcohol use. He has not had a stent in the past. Patient is seen today in the emergency center waiting for a bed on the observation unit. EKG: Sinus rhythm with no acute ST-T wave changes. Chest x-ray: No acute process. Laboratory studies: Hemoglobin 15. Sodium 140, potassium 4.1, creatinine 0.6. Troponin negative x 2. Home cardiac medications: Aspirin 81 mg daily, atorvastatin 10 mg daily at bedtime, lisinopril 2.5 mg daily, Marty nitroglycerin sublingual. Lexiscan Cardiolite stress test performed in the office on 05/01/2021 was negative stress test by EKG jeep criteria. Probably normal myocardial perfusion and function. Echocardiogram performed 04/24/2020 revealed EF of 60 to 65%, mild concentric left ventricular hypertrophy. Mild tricuspid regurgitation. Cardiac catheterization 2018 did not reveal any ischemia. Review Of Systems: At the time of my exam: CONSTITUTIONAL: Denies fever or chills. HEENT: Denies blurred vision, vision changes, or eye pain. Denies hemoptysis CARDIOVASCULAR: Denies chest pain. Denies orthopnea. Denies PND. Denies palpitations. RESPIRATORY: Denies shortness of breath. GASTROINTESTINAL: Denies abdominal pain. Denies nausea or vomiting. HEMATOLOGIC: Denies bleeding disorders. GENITOURINARY: Denies any blood in urine. SKIN: Denies puritis. Denies rash. Physical examination: Gen: This is a 53-year-old male in no acute distress. VS: reviewed HEENT: Head is atraumatic, normocephalic. Pupils equal, round. Sclerae is anicteric. NECK: Supple. No JVD. LUNGS: Clear to auscultation. No wheezes or rhonchi. No intercostal retractions. HEART: Regular rate and rhythm. No murmur. + Chest wall tenderness ABDOMEN: Soft No tenderness. EXTREMITIES: No pedal edema. No calf tenderness. NEUROLOGICAL: Patient is awake, alert and oriented x3. Assessment: Atypical chest pain, acute coronary syndrome ruled out with troponin negative x 2 Chest pain is reproducible and exaggerated with movement of the right shoulder and right upper extremity No evidence of CHF Hypertension Diabetes mellitus type 2 Obstructive sleep apnea Stroke Active tobacco use and dependence 1 pack/day Plan: Resume patient's home cardiac medications No need to obtain echocardiogram No further cardiac workup at this time Patient is cleared for discharge from cardiology and may follow-up in the office with Dr. Shaquille Gonzalez in 1 to 2 weeks. Thank you kindly for this consultation. Nurse practitioner note has been reviewed, I agree with documented findings and plan of care. Patient was seen and examined. Past Medical History Past Medical History: Asthma, Chest Pain / Angina, COPD, CVA/TIA, Diabetes Mellitus, GERD/Reflux, Hearing Disorder / Deafness, Hyperlipidemia, Hypertension, Liver Disease, Osteoarthritis (OA), Pneumonia, Seizure Disorder, Sleep Apnea/CPAP/BIPAP Additional Past Medical History / Comment(s): states CVA at 35 yrs old, no weakness @ this time. states seizure at 35 yrs old., DDD- back & neck pain., carpal tunnel syndrome. Has [employer] public guardian. History of Any Multi-Drug Resistant Organisms: None Reported Past Surgical History: Heart Catheterization, Orthopedic Surgery Additional Past Surgical History / Comment(s): Cysts removed, left thumb surgery, colonoscopy 08/24/2019. Skin tags removed from both eyes. Past Anesthesia/Blood Transfusion Reactions: Unable to Obtain, Motion Sickness, Postoperative Nausea & Vomiting (PONV) Past Psychological History: Anxiety, Bipolar, Depression, Schizophrenia Smoking Status: Current every day smoker Past Alcohol Use History: None Reported Past Drug Use History: None Reported - Past Family History Brother(s) Family Medical History: Diabetes Mellitus Additional Family Medical History / Comment(s): Patient has 2 brothers. One from complications from diabetes. The second is alive with diabetes. Sister(s) Family Medical History: Cancer Additional Family Medical History / Comment(s): Patient has one sister with breast cancer. Patient does not have any children. Father Family Medical History: Cancer Additional Family Medical History / Comment(s): Father in his 40s or 50s from colon cancer. Mother Family Medical History: Cancer Additional Family Medical History / Comment(s): Mother at age 68 from lung cancer. Medications and Allergies Home Medications Medication Instructions Recorded Confirmed Type Nitroglycerin Sl Tabs [Nitrostat] 0.4 mg SL Q5M PRN 08/20/23 12/21/23 History metFORMIN HCL 1,000 mg PO BID 10/06/23 12/21/23 History Ibuprofen [Motrin] 800 mg PO Q8H PRN 12/06/23 12/21/23 History Insulin Glargine,Hum.rec.anlog 10 units SQ HS 12/06/23 12/21/23 History [Lantus Solostar Pen] Meloxicam [Mobic] 7.5 mg PO DAILY PRN 12/06/23 12/21/23 History Ondansetron Odt [Zofran ODT] 4 mg PO BID PRN 12/06/23 12/21/23 History ARIPiprazole [Abilify] 15 mg PO DAILY 30 Days #30 tab 12/13/23 12/21/23 Rx Albuterol Nebulized [Ventolin 2.5 mg INHALATION RT-Q6H PRN #1 ml 12/13/23 12/21/23 Rx Nebulized] Aspirin EC [Ecotrin Low Dose] 81 mg PO DAILY 30 Days #30 tab 12/13/23 12/21/23 Rx Atorvastatin [Lipitor] 10 mg PO HS 30 Days #30 tab 12/13/23 12/21/23 Rx Budesonide-Formot 160-4.5 Mcg 2 puff INHALATION RT-BID 30 Days 12/13/23 12/21/23 Rx [Symbicort 160-4.5 Mcg Inhaler] #1 each Cholecalciferol (Vitamin D3) 50 mcg PO DAILY 30 Days #30 tab 12/13/23 12/21/23 Rx [Vitamin D3 (50 Mcg = 2000 Iu)] Esomeprazole Magnesium [NexIUM] 40 mg PO DAILY 30 Days #30 cap 12/13/23 12/21/23 Rx Famotidine [Pepcid] 20 mg PO BID PRN 30 Days #60 tab 12/13/23 12/21/23 Rx Ipratropium-Albuterol Nebulize 3 ml INHALATION RT-QID PRN 30 Days 12/13/23 12/21/23 Rx [Duoneb 0.5 mg-3 mg/3 ml Soln] #1 each Melatonin 5 mg PO HS 30 Days #30 tab 12/13/23 12/21/23 Rx Mirtazapine [Remeron] 15 mg PO HS 30 Days #30 tab 12/13/23 12/21/23 Rx Montelukast [Singulair] 10 mg PO HS 30 Days #30 tab 12/13/23 12/21/23 Rx Nicotine 14Mg/24Hr Patch [Habitrol] 1 patch TRANSDERM DAILY 14 Days 12/13/23 12/21/23 Rx #14 patch Sertraline [Zoloft] 100 mg PO HS 30 Days #30 tab 12/13/23 12/21/23 Rx hydrOXYzine pamoate [Vistaril] 25 mg PO DAILY PRN 30 Days #30 cap 12/13/23 12/21/23 Rx lisinopriL [Zestril] 2.5 mg PO DAILY 30 Days #30 tab 12/13/23 12/21/23 Rx glipiZIDE [Glucotrol] 5 mg PO AC-BID 12/21/23 12/21/23 History Allergies Allergy/AdvReac Type Severity Reaction Status Date / Time dicyclomine HCl [From Bentyl] Allergy Unknown Dyspnea Verified 12/21/23 10:32 latex Allergy Unknown Rash/Hives Verified 12/21/23 10:32 Benzoate Analogues Allergy Unknown Verified 12/21/23 10:32 nitrofurantoin Allergy Nausea Verified 12/21/23 10:32 [From Macrobid] Penicillins Allergy "[place] Verified 12/21/23 10:32 funny" adhesive AdvReac Unknown Itching Verified 12/21/23 10:32 ciprofloxacin AdvReac Unknown Nausea Verified 12/21/23 10:32 Macrolide Antibiotics AdvReac Unknown Nausea Verified 12/21/23 10:32 sulfamethoxazole AdvReac Unknown Unknown Verified 12/21/23 10:32 [From Bactrim] trimethoprim [From Bactrim] AdvReac Unknown Unknown Verified 12/21/23 10:32 diphenhydramine AdvReac Confusion Verified 12/21/23 10:32 [From Benadryl] Physical Exam Vitals: Vital Signs Temp Pulse Resp BP Pulse Ox 12/21/23 07:33 98.3 F 60 18 113/98 98 Intake and Output 12/20/23 12/21/23 12/21/23 22:59 06:59 14:59 Other: Weight 170 kg Results 12/21/23 07:59 12/21/23 07:59 Cardiac Enzymes 12/21/23 12/21/23 Range/Units 07:59 07:59 AST 27 (17-59) U/L Troponin I <0.012 (0.000-0.034) ng/mL Coagulation 12/21/23 Range/Units 07:59 PT 10.1 (10.0-12.5) sec APTT 23.1 (22.0-30.0) sec CBC 12/21/23 Range/Units 07:59 WBC 7.1 (3.8-10.6) k/uL RBC 4.82 (4.30-5.90) m/uL Hgb 15.0 (13.0-17.5) gm/dL Hct 44.7 (39.0-53.0) % Plt Count 210 (150-450) k/uL Comprehensive Metabolic Panel 12/21/23 Range/Units 07:59 Sodium 140 (137-145) mmol/L Potassium 4.1 (3.5-5.1) mmol/L Chloride 113 H (98-107) mmol/L Carbon Dioxide 23 (22-30) mmol/L BUN 13 (9-20) mg/dL Creatinine 0.60 L (0.66-1.25) mg/dL Glucose 146 H (74-99) mg/dL Calcium 9.0 (8.4-10.2) mg/dL AST 27 (17-59) U/L ALT 45 (4-49) U/L Alkaline Phosphatase 72 (38-126) U/L Total Protein 5.9 L (6.3-8.2) g/dL Albumin 3.9 (3.5-5.0) g/dL Current Medications Generic Name Dose Route Start Last Admin Trade Name Freq PRN Reason Stop Dose Admin Aspirin 325 mg 12/22/23 09:00 Aspirin 325 Mg Tab PO DAILY PJ Nitroglycerin 0.4 mg 12/21/23 11:09 Nitroglycerin Sl Tabs 0.4 Mg Tab SUBLINGUAL Q5M PRN Chest Pain Intake and Output 12/20/23 12/21/23 12/21/23 22:59 06:59 14:59 Other: Weight 170 kg Patient Weight 12/22/23 06:59 Weight 170 kg 12/21/23 07:59 12/21/23 07:59
[2023-12-22] MEDS: LIDOCAINE 4% PATCH TOPICAL SCH (08:43)
[2023-12-22] MEDS: ASPIRIN 81 MG PO SCH (08:46)
[2023-12-22] MEDS: ARIPiprazole 15 MG TAB PO SCH (08:46)
[2023-12-22] MEDS: CHOLECALCIFEROL 25 MCG (1000 IU) TABLET PO SCH (08:48)
[2023-12-22 08:52] LABS: Chol/HDL Ratio 3.26 Ratio; LDL Cholesterol,Calculated 54.7 mg/dL (0.0-131.0)
[2023-12-22] MEDS ORDERED: ASPIRIN 325 MG TAB PO SCH (09:00)
[2023-12-22 09:57] VITALS: RESP 16
--- NOTE | 2023-12-22 11:00 | P.PN ---
Subjective Progress Note Date: 12/22/23 Consult reason: chest pain History of present illness: This is a 53-year-old male patient of Dr. Shaquille Gonzalez with past medical history of hypertension, diabetes mellitus type 2, obstructive sleep apnea, stroke at age 35, depression, tobacco use and dependence. We have been asked to evaluate the patient for chest pain. Patient states that he developed chest pain stomach pain. He complains of right upper chest right shoulder pain that goes into the back of his neck. Pain is worse with movement of his right shoulder. He has not received any nitroglycerin. Patient is an active smoker of 1 pack/day. He denies any alcohol use. He has not had a stent in the past. Patient is seen today in the emergency center waiting for a bed on the observation unit. EKG: Sinus rhythm with no acute ST-T wave changes. Chest x-ray: No acute process. Laboratory studies: Hemoglobin 15. Sodium 140, potassium 4.1, creatinine 0.6. Troponin negative x 2. Home cardiac medications: Aspirin 81 mg daily, atorvastatin 10 mg daily at bedtime, lisinopril 2.5 mg daily, Marty nitroglycerin sublingual. Lexiscan Cardiolite stress test performed in the office on 05/01/2021 was negative stress test by EKG jeep criteria. Probably normal myocardial perfusion and function. Echocardiogram performed 04/24/2020 revealed EF of 60 to 65%, mild concentric left ventricular hypertrophy. Mild tricuspid regurgitation. Cardiac catheterization 2018 did not reveal any ischemia. 12/21 Patient states that he continues to have right shoulder pain and upper anterior chest wall pain worse with deep breathing and movement of his right shoulder. We will add lidocaine patch. There was no plan for any further cardiac workup for this patient. Blood pressure 108/70, heart rate 54, pulse ox 96% on room air. Blood work reveals triglycerides 191, cholesterol 134, LDL 54. Physical examination: Gen: This is a 53-year-old male in no acute distress. VS: reviewed HEENT: Head is atraumatic, normocephalic. Pupils equal, round. Sclerae is anicteric. NECK: Supple. No JVD. LUNGS: Clear to auscultation. No wheezes or rhonchi. No intercostal retractions. HEART: Regular rate and rhythm. No murmur. + Chest wall tenderness ABDOMEN: Soft No tenderness. EXTREMITIES: No pedal edema. No calf tenderness. NEUROLOGICAL: Patient is awake, alert and oriented x3. Assessment: Atypical chest pain, acute coronary syndrome ruled out with troponin negative x 2 Chest pain is reproducible and exaggerated with movement of the right shoulder and right upper extremity No evidence of CHF Hypertension Diabetes mellitus type 2 Obstructive sleep apnea Stroke Active tobacco use and dependence 1 pack/day Plan: Continue patient's home cardiac medications Add lidocaine patch No need to obtain echocardiogram No further cardiac workup at this time Patient is cleared for discharge from cardiology and may follow-up in the office with Dr. Shaquille Gonzalez in 1 to 2 weeks. Nurse practitioner note has been reviewed, I agree with documented findings and plan of care. Patient was seen and examined. Objective - Vital Signs Vital signs: Vital Signs Temp 98.7 F 12/22/23 01:50 Pulse 59 L 12/22/23 01:50 Resp 15 12/22/23 01:50 BP 107/61 12/22/23 01:50 Pulse Ox 98 12/22/23 01:50 FiO2 Intake & Output 12/21/23 12/22/23 12/22/23 18:59 06:59 18:59 Output Total 800 900 Balance -800 -900 Weight 170 kg 170 kg Output: Urine 800 900 Straight 800 700 Other: # Voids 350 - Labs CBC & Chem 7: 12/21/23 07:59 12/21/23 07:59 Labs: Abnormal Lab Results - Last 24 Hours (Table) 12/21/23 12/21/23 12/22/23 Range/Units 07:59 18:14 01:39 Chloride 113 H (98-107) mmol/L Creatinine 0.60 L (0.66-1.25) mg/dL Glucose 146 H (74-99) mg/dL POC Glucose (mg/dL) 315 H (70-110) mg/dL Total Protein 5.9 L (6.3-8.2) g/dL Urine Glucose (UA) 2+ H (Negative) 12/22/23 Range/Units 06:01 Chloride (98-107) mmol/L Creatinine (0.66-1.25) mg/dL Glucose (74-99) mg/dL POC Glucose (mg/dL) 181 H (70-110) mg/dL Total Protein (6.3-8.2) g/dL Urine Glucose (UA) (Negative)
[2023-12-22] MEDS ORDERED: NICOTINE GUM (POLACRILEX) 2 MG GUM BUCCAL PRN (14:41)
[2023-12-22 15:24] VITALS: BP 102/68; PULSE 62; TEMP 97.9
--- NOTE | 2023-12-23 00:12 | P.DS ---
Providers Date of admission: 12/21/23 11:09 Attending physician: Randall Zacarias MD Consults: 12/21/23 11:09 Consult Physician Urgent Consulting Provider: Harvey Cruz Consult Reason/Comments: chest pain Do you want consulting provider notified?: Yes Primary care physician: [facility] Hospital Course: Diagnoses: Chest pain, most likely musculoskeletal associated with chest wall tenderness, is chronic in nature and atypical of chest pain or pulmonary disease increased by movement as well COPD: No acute process Schizophrenia patient denies active hallucination or delusions History of CVA/TIA Diabetes mellitus Hypertension Hyperlipidemia History of osteoarthritis Seizure disorder Sleep apnea History of liver disease Hospital course: This is a pleasant 53 years old male with past medical history of multiple medical problems as below. Patient presents because of chest pain, patient states he has this chest pain for months and he needs to be checked out. Patient was evaluated by tax evaluator and cleared him for discharge on his current cardiac medication. And his chest pain improved On the day of discharge he denies any other new complaints. No dyspnea. He is walking fine and has good appetite He agrees to go home today He wants to quit smoking and requests nicotine gum which is provided and patient had extensive counseling to quit smoking and he verbalized understanding and ac ceptance. Patient was cleared for discharge by cardiology team Problems and management plan were discussed with the patient and he verbalized understanding and acceptance Patient was found stable and can be discharged home in guarded prognosis however he needs follow-up as an outpatient. Patient was instructed to follow up with PCP within one week and patient agrees Physical exam Gen: patient is a AAOx3, no distress CVS: S1-S2, RRR, no murmur Lungs: B/L CTA, no wheezing Abdomen: soft, no distention, no tenderness, positive bowel sounds Extremity: no leg edema or induration Time spent more than 35 minutes Current medication Patient Condition at Discharge: Fair Plan - Discharge Summary New Discharge Prescriptions: New Lidocaine 4% Patch 1 patch TOPICAL DAILY #3 patch Famotidine [Pepcid] 20 mg PO BID PRN #40 tab PRN Reason: Heartburn Docusate [Colace] 100 mg PO BID PRN 3 Days #6 capsule PRN Reason: Constipation Nicotine Gum (Polacrilex) [Nicorette] 2 mg BUCCAL Q8HR PRN 3 Days #6 pieceofgum PRN Reason: Nicotine Cravings Continue Nitroglycerin Sl Tabs [Nitrostat] 0.4 mg SL Q5M PRN PRN Reason: Chest Pain metFORMIN HCL 1,000 mg PO BID Insulin Glargine,Hum.rec.anlog [Lantus Solostar Pen] 10 units SQ HS Ibuprofen [Motrin] 800 mg PO Q8H PRN PRN Reason: Pain Ipratropium-Albuterol Nebulize [Duoneb 0.5 mg-3 mg/3 ml Soln] 3 ml INHALATION RT-QID PRN 30 Days #1 each PRN Reason: Shortness Of Breath Or Wheezing Sertraline [Zoloft] 100 mg PO HS 30 Days #30 tab ARIPiprazole [Abilify] 15 mg PO DAILY 30 Days #30 tab Atorvastatin [Lipitor] 10 mg PO HS 30 Days #30 tab Esomeprazole Magnesium [NexIUM] 40 mg PO DAILY 30 Days #30 cap Albuterol Nebulized [Ventolin Nebulized] 2.5 mg INHALATION RT-Q6H PRN #1 ml PRN Reason: Shortness Of Breath Cholecalciferol (Vitamin D3) [Vitamin D3 (50 Mcg = 2000 Iu)] 50 mcg PO DAILY 30 Days #30 tab glipiZIDE [Glucotrol] 5 mg PO AC-BID Ondansetron Odt [Zofran ODT] 4 mg PO BID PRN PRN Reason: Nausea And Vomiting Nicotine 14Mg/24Hr Patch [Habitrol] 1 patch TRANSDERM DAILY 14 Days #14 patch Mirtazapine [Remeron] 15 mg PO HS 30 Days #30 tab Budesonide-Formot 160-4.5 Mcg [Symbicort 160-4.5 Mcg Inhaler] 2 puff INHALATION RT-BID 30 Days #1 each hydrOXYzine pamoate [Vistaril] 25 mg PO DAILY PRN 30 Days #30 cap PRN Reason: Anxiety Aspirin EC [Ecotrin Low Dose] 81 mg PO DAILY 30 Days #30 tab Melatonin 5 mg PO HS 30 Days #30 tab Famotidine [Pepcid] 20 mg PO BID PRN 30 Days #60 tab PRN Reason: Heartburn Montelukast [Singulair] 10 mg PO HS 30 Days #30 tab lisinopriL [Zestril] 2.5 mg PO DAILY 30 Days #30 tab Discontinued Meloxicam [Mobic] 7.5 mg PO DAILY PRN PRN Reason: Pain Discharge Medication List Nitroglycerin Sl Tabs [Nitrostat] 0.4 mg SL Q5M PRN 08/20/23 [History] metFORMIN HCL 1,000 mg PO BID 10/06/23 [History] Ibuprofen [Motrin] 800 mg PO Q8H PRN 12/06/23 [History] Insulin Glargine,Hum.rec.anlog [Lantus Solostar Pen] 10 units SQ HS 12/06/23 [History] Ondansetron Odt [Zofran ODT] 4 mg PO BID PRN 12/06/23 [History] ARIPiprazole [Abilify] 15 mg PO DAILY 30 Days #30 tab 12/13/23 [Rx] Albuterol Nebulized [Ventolin Nebulized] 2.5 mg INHALATION RT-Q6H PRN #1 ml 12/13/23 [Rx] Aspirin EC [Ecotrin Low Dose] 81 mg PO DAILY 30 Days #30 tab 12/13/23 [Rx] Atorvastatin [Lipitor] 10 mg PO HS 30 Days #30 tab 12/13/23 [Rx] Budesonide-Formot 160-4.5 Mcg [Symbicort 160-4.5 Mcg Inhaler] 2 puff INHALATION RT-BID 30 Days #1 each 12/13/23 [Rx] Cholecalciferol (Vitamin D3) [Vitamin D3 (50 Mcg = 2000 Iu)] 50 mcg PO DAILY 30 Days #30 tab 12/13/23 [Rx] Esomeprazole Magnesium [NexIUM] 40 mg PO DAILY 30 Days #30 cap 12/13/23 [Rx] Famotidine [Pepcid] 20 mg PO BID PRN 30 Days #60 tab 12/13/23 [Rx] Ipratropium-Albuterol Nebulize [Duoneb 0.5 mg-3 mg/3 ml Soln] 3 ml INHALATION RT-QID PRN 30 Days #1 each 12/13/23 [Rx] Melatonin 5 mg PO HS 30 Days #30 tab 12/13/23 [Rx] Mirtazapine [Remeron] 15 mg PO HS 30 Days #30 tab 12/13/23 [Rx] Montelukast [Singulair] 10 mg PO HS 30 Days #30 tab 12/13/23 [Rx] Nicotine 14Mg/24Hr Patch [Habitrol] 1 patch TRANSDERM DAILY 14 Days #14 patch 12/13/23 [Rx] Sertraline [Zoloft] 100 mg PO HS 30 Days #30 tab 12/13/23 [Rx] hydrOXYzine pamoate [Vistaril] 25 mg PO DAILY PRN 30 Days #30 cap 12/13/23 [Rx] lisinopriL [Zestril] 2.5 mg PO DAILY 30 Days #30 tab 12/13/23 [Rx] glipiZIDE [Glucotrol] 5 mg PO AC-BID 12/21/23 [History] Docusate [Colace] 100 mg PO BID PRN 3 Days #6 capsule 12/22/23 [Rx] Famotidine [Pepcid] 20 mg PO BID PRN #40 tab 12/22/23 [Rx] Lidocaine 4% Patch 1 patch TOPICAL DAILY #3 patch 12/22/23 [Rx] Nicotine Gum (Polacrilex) [Nicorette] 2 mg BUCCAL Q8HR PRN 3 Days #6 pieceofgum 12/22/23 [Rx] Follow up Appointment(s)/Referral(s): Ramya Saul MD [Primary Care Provider] - 1-2 days Mika Gonzalez MD [STAFF PHYSICIAN] - 12/29/23 3:30 pm Dylan Zafar MD [STAFF PHYSICIAN] - 1 Week (urologist ) Patient Instructions/Handouts: Chest Pain (DC) Activity/Diet/Wound Care/Special Instructions: heart healthy diet activity is restricted till you see your doctor no smoking while patch is on or using nicotine gum while smoking Discharge Disposition: HOME SELF-CARE
== END 2023-12-22 16:03 | disposition home or self-care (01) ==
LOC: EC 07:26 → 6NMEDSUR 11:09
PROVIDERS: ADMIT Internal Medicine; ATTEND Internal Medicine
DX: R07.89 Other chest pain (principal); I11.9 Hypertensive heart disease without heart failure; J44.9 Chronic obstructive pulmonary disease, unspecified; E11.9 Type 2 diabetes mellitus without complications; I07.1 Rheumatic tricuspid insufficiency; G47.33 Obstructive sleep apnea (adult) (pediatric); E78.5 Hyperlipidemia, unspecified; G40.909 Epilepsy, unspecified, not intractable, without status epilepticus; M25.511 Pain in right shoulder; M54.2 Cervicalgia; R00.1 Bradycardia, unspecified; M19.90 Unspecified osteoarthritis, unspecified site; K76.9 Liver disease, unspecified; F31.9 Bipolar disorder, unspecified; F20.9 Schizophrenia, unspecified; F17.210 Nicotine dependence, cigarettes, uncomplicated; Z79.1 Long term (current) use of non-steroidal anti-inflammatories (NSAID); Z79.84 Long term (current) use of oral hypoglycemic drugs; Z79.4 Long term (current) use of insulin; Z79.82 Long term (current) use of aspirin; Z79.51 Long term (current) use of inhaled steroids; Z79.899 Other long term (current) drug therapy; Z88.0 Allergy status to penicillin; Z88.2 Allergy status to sulfonamides; Z88.1 Allergy status to other antibiotic agents; Z88.8 Allergy status to other drugs, medicaments and biological substances; Z91.040 Latex allergy status; Z86.73 Personal history of transient ischemic attack (TIA), and cerebral infarction without residual deficits; Z71.6 Tobacco abuse counseling
CPT/HCPCS: 99285; 51798; 36415; 94640 ×3; 94760; 93005; 80061; 80053; 83735; 84484; 85025; 85610; 85730; 81003; 71046; G0378 ×2; S4990 ×2

== ENCOUNTER 2023-12-25 13:17 | Emergency (ER) | payer MEDICARE, OTHER ==
[2023-12-25 13:21] VITALS: RESP 18; TEMP 98.8
--- NOTE | 2023-12-25 13:39 | ED ---
General Adult HPI - General Chief complaint: Urogenital Stated complaint: Catheter Malfunction Time Seen by Provider: 12/25/23 13:19 Source: patient Mode of arrival: ambulatory Limitations: no limitations - History of Present Illness Initial comments: Dictation was produced using [employer] dictation software. please excuse any grammatical, word or spelling errors. Chief Complaint: 53-year-old male requesting a larger Hernandez catheter reservoir bag History of Present Illness: Patient is a 53-year-old male he is well-known to emergency department for multiple visitations for myriad of complaints specially chest pain. Today he is not here for chest pain. He is here because he would like a larger Hernandez catheter reservoir bag. Patient states he had a Hernandez catheter placed says that he might need bladder surgery soon. He does not like his current Hernandez set up because he makes too much urine and is inconvenienced by having to drain his Hernandez catheter bag often. He has no other medical complaints. The ROS documented in this emergency department record has been reviewed and confirmed by me. Those systems with pertinent positive or negative responses have been documented in the HPI. All other systems are other negative and/or noncontributory. - Related Data Home Medications Medication Instructions Recorded Confirmed Nitroglycerin Sl Tabs [Nitrostat] 0.4 mg SL Q5M PRN 08/20/23 12/21/23 metFORMIN HCL 1,000 mg PO BID 10/06/23 12/21/23 Ibuprofen [Motrin] 800 mg PO Q8H PRN 12/06/23 12/21/23 Insulin Glargine,Hum.rec.anlog 10 units SQ HS 12/06/23 12/21/23 [Lantus Solostar Pen] Ondansetron Odt [Zofran ODT] 4 mg PO BID PRN 12/06/23 12/21/23 glipiZIDE [Glucotrol] 5 mg PO AC-BID 12/21/23 12/21/23 Previous Rx's Medication Instructions Recorded ARIPiprazole [Abilify] 15 mg PO DAILY 30 Days #30 tab 12/13/23 Albuterol Nebulized [Ventolin 2.5 mg INHALATION RT-Q6H PRN #1 ml 12/13/23 Nebulized] Aspirin EC [Ecotrin Low Dose] 81 mg PO DAILY 30 Days #30 tab 12/13/23 Atorvastatin [Lipitor] 10 mg PO HS 30 Days #30 tab 12/13/23 Budesonide-Formot 160-4.5 Mcg 2 puff INHALATION RT-BID 30 Days 12/13/23 [Symbicort 160-4.5 Mcg Inhaler] #1 each Cholecalciferol (Vitamin D3) 50 mcg PO DAILY 30 Days #30 tab 12/13/23 [Vitamin D3 (50 Mcg = 2000 Iu)] Esomeprazole Magnesium [NexIUM] 40 mg PO DAILY 30 Days #30 cap 12/13/23 Famotidine [Pepcid] 20 mg PO BID PRN 30 Days #60 tab 12/13/23 Ipratropium-Albuterol Nebulize 3 ml INHALATION RT-QID PRN 30 Days 12/13/23 [Duoneb 0.5 mg-3 mg/3 ml Soln] #1 each Melatonin 5 mg PO HS 30 Days #30 tab 12/13/23 Mirtazapine [Remeron] 15 mg PO HS 30 Days #30 tab 12/13/23 Montelukast [Singulair] 10 mg PO HS 30 Days #30 tab 12/13/23 Nicotine 14Mg/24Hr Patch [Habitrol] 1 patch TRANSDERM DAILY 14 Days 12/13/23 #14 patch Sertraline [Zoloft] 100 mg PO HS 30 Days #30 tab 12/13/23 hydrOXYzine pamoate [Vistaril] 25 mg PO DAILY PRN 30 Days #30 cap 12/13/23 lisinopriL [Zestril] 2.5 mg PO DAILY 30 Days #30 tab 12/13/23 Docusate [Colace] 100 mg PO BID PRN 3 Days #6 capsule 12/22/23 Famotidine [Pepcid] 20 mg PO BID PRN #40 tab 12/22/23 Lidocaine 4% Patch 1 patch TOPICAL DAILY #3 patch 12/22/23 Nicotine Gum (Polacrilex) 2 mg BUCCAL Q8HR PRN 3 Days #6 12/22/23 [Nicorette] pieceofgum Allergies Allergy/AdvReac Type Severity Reaction Status Date / Time dicyclomine HCl [From Bentyl] Allergy Unknown Dyspnea Verified 12/25/23 13:21 latex Allergy Unknown Rash/Hives Verified 12/25/23 13:21 Benzoate Analogues Allergy Unknown Verified 12/25/23 13:21 nitrofurantoin Allergy Nausea Verified 12/25/23 13:21 [From Macrobid] Penicillins Allergy "[place] Verified 12/25/23 13:21 funny" adhesive AdvReac Unknown Itching Verified 12/25/23 13:21 ciprofloxacin AdvReac Unknown Nausea Verified 12/25/23 13:21 Macrolide Antibiotics AdvReac Unknown Nausea Verified 12/25/23 13:21 sulfamethoxazole AdvReac Unknown Unknown Verified 12/25/23 13:21 [From Bactrim] trimethoprim [From Bactrim] AdvReac Unknown Unknown Verified 12/25/23 13:21 diphenhydramine AdvReac Confusion Verified 12/25/23 13:21 [From Benadryl] Review of Systems ROS Statement: Those systems with pertinent positive or pertinent negative responses have been documented in the HPI. ROS Other: All systems not noted in ROS Statement are negative. Past Medical History Past Medical History: Asthma, Chest Pain / Angina, COPD, CVA/TIA, Diabetes Mellitus, GERD/Reflux, Hearing Disorder / Deafness, Hyperlipidemia, Hypertension, Liver Disease, Osteoarthritis (OA), Pneumonia, Seizure Disorder, Sleep Apnea/CPAP/BIPAP Additional Past Medical History / Comment(s): states CVA at 35 yrs old, no weakness @ this time. states seizure at 35 yrs old., DDD- back & neck pain., carpal tunnel syndrome. Has [employer] public guardian. History of Any Multi-Drug Resistant Organisms: None Reported Past Surgical History: Heart Catheterization, Orthopedic Surgery Additional Past Surgical History / Comment(s): Cysts removed, left thumb surgery, colonoscopy 08/24/2019. Skin tags removed from both eyes. Past Anesthesia/Blood Transfusion Reactions: Unable to Obtain, Motion Sickness, Postoperative Nausea & Vomiting (PONV) Past Psychological History: Anxiety, Bipolar, Depression, Schizophrenia Smoking Status: Current every day smoker Past Alcohol Use History: None Reported Past Drug Use History: None Reported - Past Family History Brother(s) Family Medical History: Diabetes Mellitus Additional Family Medical History / Comment(s): Patient has 2 brothers. One from complications from diabetes. The second is alive with diabetes. Sister(s) Family Medical History: Cancer Additional Family Medical History / Comment(s): Patient has one sister with breast cancer. Patient does not have any children. Father Family Medical History: Cancer Additional Family Medical History / Comment(s): Father in his 40s or 50s from colon cancer. Mother Family Medical History: Cancer Additional Family Medical History / Comment(s): Mother at age 68 from lung cancer. General Exam - General Exam Comments Initial Comments: General: Well-appearing, nontoxic, no acute distress. Head: Normocephalic, atraumatic Eyes: PERRLA, EOMI ENT: Airway patent Chest: Nonlabored breathing Skin: No visual rash, normal skin tone Neuro: Alert and oriented 3 Musculoskeletal: No gross abnormalities Limitations: no limitations Course Vital Signs 12/25/23 13:18 Temperature 98.8 F Pulse Rate 100 Respiratory 18 Rate Blood Pressure 149/84 O2 Sat by Pulse 97 Oximetry Medical Decision Making - Medical Decision Making Was pt. sent in by a medical professional or institution (, PA, CEREAL SUPERVISOR, urgent care, hospital, or penitentiary...) When possible be specific @ -No Did you speak to anyone other than the patient for history (EMS, parent, family, police, friend...)? What history was obtained from this source @ -No Did you review nursing and triage notes (agree or disagree)? Why? @ -I reviewed and agree with nursing and triage notes Were old charts reviewed (outside hosp., previous admission, EMS record, old EKG, old radiological studies, urgent care reports/EKG's, penitentiary records)? Report findings @ -No old charts were reviewed Differential Diagnosis (chest pain, altered mental status, abdominal pain women, abdominal pain men, vaginal bleeding, musculoskeletal, weakness, fever, dyspnea, syncope, headache, dizziness, GI bleed, back pain, seizure, CVA, palpatations, mental health)? @ -Polyuria, UTI, urinary retention EKG interpreted by me (3pts min.). @ -None done X-rays interpreted by me (1pt min.). @ -None done CT interpreted by me (1pt min.). @ -None done U/S interpreted by me (1pt. min.). @ -None done What testing was considered but not performed or refused? (CT, X-rays, U/S, labs)? Why? @ -None What meds were considered but not given or refused? Why? @ -None Was smoking cessation discussed for >3mins.? @ -No Were there social determinants of health that impacted care today? How? (Homelessness, low income, unemployed, alcoholism, drug addiction, transportation, low edu. Level, literacy, decrease access to med. care, group home, rehab)? @ -No Was there de-escalation of care discussed even if they declined (Discuss DNR or withdrawal of care, Hospice)? DNR status @ -No What co-morbidities impacted this encounter? (DM, HTN, Smoking, COPD, CAD, Cancer, CVA, ARF, Chemo, Hep., AIDS, mental health diagnosis, sleep apnea, morbid obesity)? @ -None Was patient admitted / discharged? Hospital course, mention meds given and route, prescriptions, significant lab abnormalities, going to OR and other pertinent info. @ -53-year-old male requesting larger Hernandez reservoir bag. Vital signs stable. Patient appears to be at baseline. Patient given a larger bag at discharge. Did you discuss the management of the patient with other professionals (professionals i.e. , PA, CEREAL SUPERVISOR, lab, RT, psych nurse, social worker school, tapper helper, teacher, photographic intelligence officer, shoe caser)? Give summary @ -No Was critical care preformed (if so, how long)? @ -No Undiagnosed new problem with uncertain prognosis? @ -No Drug Therapy requiring intensive monitoring for toxicity (Heparin, Nitro, Insulin, Cardizem)? @ -No Were any procedures done? @ -No Diagnosis/symptom? Acute, or Chronic, or Acute on Chronic? Uncomplicated (without systemic symptoms) or Complicated (systemic symptoms)? @ -Request for medical equipment Side effects of treatment? @ -No Exacerbation, Progression, or Severe Exacerbation? @ -No Poses a threat to life or bodily function? How? (Chest pain, [place], [place], pneumonia, PE, COPD, DKA, ARF, appy, cholecystitis, CVA, Diverticulitis, Homicidal, Suicidal, threat to staff... and all critical care pts) @ -No Disposition Clinical Impression: Hernandez catheter status Disposition: HOME SELF-CARE Condition: Good Instructions (If sedation given, give patient instructions): How to Change a Catheter Drainage Bag (DC) Is patient prescribed a controlled substance at d/c from ED?: No Referrals: Ramya Saul MD [Primary Care Provider] - 1-2 days Time of Disposition: 13:39
[2023-12-25 14:18] VITALS: BP 136/83; PULSE 83
== END 2023-12-25 14:18 | disposition home or self-care (01) ==
LOC: EC 13:17
DX: T83.018A Breakdown (mechanical) of other urinary catheter, initial encounter (principal); F17.200 Nicotine dependence, unspecified, uncomplicated; Z88.0 Allergy status to penicillin; Z88.1 Allergy status to other antibiotic agents; Z88.2 Allergy status to sulfonamides; Z91.040 Latex allergy status; Z88.8 Allergy status to other drugs, medicaments and biological substances
CPT/HCPCS: 99283

== ENCOUNTER 2023-12-27 22:07 | Emergency (ER) | payer MEDICARE, OTHER ==
[2023-12-27 22:18] VITALS: RESP 18; TEMP 98.3
--- NOTE | 2023-12-27 22:25 | ED ---
General Adult HPI - General Chief complaint: ENT Stated complaint: Difficulty Swallowing Time Seen by Provider: 12/27/23 22:11 Source: EMS Mode of arrival: EMS - History of Present Illness Initial comments: Dictation was produced using [employer] dictation software. please excuse any gr ammatical, word or spelling errors. Chief Complaint: 53-year-old male with sore throat and right shoulder pain History of Present Illness: Patient is a 53-year-old male presents to the emergency department with sore throat and right shoulder pain. Symptoms have been ongoing for several hours. Patient is here in the emergency department often. Typically his complaint is chest pain. States that his throat has been hurting for the last couple hours. Denies any nausea vomiting. No fevers. States that hurts when he tries to swallow. Complaining of acute on chronic right shoulder pain states that he has pinched nerve in his neck. States that it feels like his usual radiculopathy symptoms. Denies any obvious sick contacts. The ROS documented in this emergency department record has been reviewed and confirmed by me. Those systems with pertinent positive or negative responses ayala ve been documented in the HPI. All other systems are other negative and/or noncontributory. - Related Data Home Medications Medication Instructions Recorded Confirmed Nitroglycerin Sl Tabs [Nitrostat] 0.4 mg SL Q5M PRN 08/20/23 12/21/23 metFORMIN HCL 1,000 mg PO BID 10/06/23 12/21/23 Ibuprofen [Motrin] 800 mg PO Q8H PRN 12/06/23 12/21/23 Insulin Glargine,Hum.rec.anlog 10 units SQ HS 12/06/23 12/21/23 [Lantus Solostar Pen] Ondansetron Odt [Zofran ODT] 4 mg PO BID PRN 12/06/23 12/21/23 glipiZIDE [Glucotrol] 5 mg PO AC-BID 12/21/23 12/21/23 Previous Rx's Medication Instructions Recorded ARIPiprazole [Abilify] 15 mg PO DAILY 30 Days #30 tab 12/13/23 Albuterol Nebulized [Ventolin 2.5 mg INHALATION RT-Q6H PRN #1 ml 12/13/23 Nebulized] Aspirin EC [Ecotrin Low Dose] 81 mg PO DAILY 30 Days #30 tab 12/13/23 Atorvastatin [Lipitor] 10 mg PO HS 30 Days #30 tab 12/13/23 Budesonide-Formot 160-4.5 Mcg 2 puff INHALATION RT-BID 30 Days 12/13/23 [Symbicort 160-4.5 Mcg Inhaler] #1 each Cholecalciferol (Vitamin D3) 50 mcg PO DAILY 30 Days #30 tab 12/13/23 [Vitamin D3 (50 Mcg = 2000 Iu)] Esomeprazole Magnesium [NexIUM] 40 mg PO DAILY 30 Days #30 cap 12/13/23 Famotidine [Pepcid] 20 mg PO BID PRN 30 Days #60 tab 12/13/23 Ipratropium-Albuterol Nebulize 3 ml INHALATION RT-QID PRN 30 Days 12/13/23 [Duoneb 0.5 mg-3 mg/3 ml Soln] #1 each Melatonin 5 mg PO HS 30 Days #30 tab 12/13/23 Mirtazapine [Remeron] 15 mg PO HS 30 Days #30 tab 12/13/23 Montelukast [Singulair] 10 mg PO HS 30 Days #30 tab 12/13/23 Nicotine 14Mg/24Hr Patch [Habitrol] 1 patch TRANSDERM DAILY 14 Days 12/13/23 #14 patch Sertraline [Zoloft] 100 mg PO HS 30 Days #30 tab 12/13/23 hydrOXYzine pamoate [Vistaril] 25 mg PO DAILY PRN 30 Days #30 cap 12/13/23 lisinopriL [Zestril] 2.5 mg PO DAILY 30 Days #30 tab 12/13/23 Docusate [Colace] 100 mg PO BID PRN 3 Days #6 capsule 12/22/23 Famotidine [Pepcid] 20 mg PO BID PRN #40 tab 12/22/23 Lidocaine 4% Patch 1 patch TOPICAL DAILY #3 patch 12/22/23 Nicotine Gum (Polacrilex) 2 mg BUCCAL Q8HR PRN 3 Days #6 12/22/23 [Nicorette] pieceofgum Allergies Allergy/AdvReac Type Severity Reaction Status Date / Time dicyclomine HCl [From Bentyl] Allergy Unknown Dyspnea Verified 12/27/23 22:18 latex Allergy Unknown Rash/Hives Verified 12/27/23 22:18 Benzoate Analogues Allergy Unknown Verified 12/27/23 22:18 nitrofurantoin Allergy Nausea Verified 12/27/23 22:18 [From Macrobid] Penicillins Allergy "[place] Verified 12/27/23 22:18 funny" adhesive AdvReac Unknown Itching Verified 12/27/23 22:18 ciprofloxacin AdvReac Unknown Nausea Verified 12/27/23 22:18 Macrolide Antibiotics AdvReac Unknown Nausea Verified 12/27/23 22:18 sulfamethoxazole AdvReac Unknown Unknown Verified 12/27/23 22:18 [From Bactrim] trimethoprim [From Bactrim] AdvReac Unknown Unknown Verified 12/27/23 22:18 diphenhydramine AdvReac Confusion Verified 12/27/23 22:18 [From Benadryl] Review of Systems ROS Statement: Those systems with pertinent positive or pertinent negative responses have been documented in the HPI. ROS Other: All systems not noted in ROS Statement are negative. Past Medical History Past Medical History: Asthma, Chest Pain / Angina, COPD, CVA/TIA, Diabetes M[place] t[place], GERD/Reflux, Hearing Disorder / Deafness, Hyperlipidemia, Hypertension, Liver Disease, Osteoarthritis (OA), Pneumonia, Seizure Disorder, Sleep Apnea/CPAP/BIPAP Additional Past Medical History / Comment(s): states CVA at 35 yrs old, no weakness @ this time. states seizure at 35 yrs old., DDD- back & neck pain., carpal tunnel syndrome. Has [employer] public guardian. History of Any Multi-Drug Resistant Organisms: None Reported Past Surgical History: Heart Catheterization, Orthopedic Surgery Additional Past Surgical History / Comment(s): Cysts removed, left thumb surgery, colonoscopy 08/24/2019. Skin tags removed from both eyes. Past Anesthesia/Blood Transfusion Reactions: Unable to Obtain, Motion Sickness, Postoperative Nausea & Vomiting (PONV) Past Psychological History: Anxiety, Bipolar, Depression, Schizophrenia Smoking Status: Current every day smoker Past Alcohol Use History: None Reported Past Drug Use History: None Reported - Past Family History Brother(s) Family Medical History: Diabetes Mellitus Additional Family Medical History / Comment(s): Patient has 2 brothers. One d ied from complications from diabetes. The second is alive with diabetes. Sister(s) Family Medical History: Cancer Additional Family Medical History / Comment(s): Patient has one sister with breast cancer. Patient does not have any children. Father Family Medical History: Cancer Additional Family Medical History / Comment(s): Father in his 40s or 50s from colon cancer. Mother Family Medical History: Cancer Additional Family Medical History / Comment(s): Mother at age 68 from lung cancer. General Exam - General Exam Comments Initial Comments: PHYSICAL EXAM: General Impression: Alert and oriented x3, not in acute distress HEENT: Normocephalic atraumatic, extra-ocular movements intact, pupils equal and reactive to light bilaterally, mucous membranes moist, swollen uvula, uvula is midline, slight posterior oropharyngeal erythema Cardiovascular: Heart regular rate and rhythm Chest: Able to complete full sentences, no retractions, no tachypnea Abdomen: abdomen soft, non-tender, non-distended, no organomegaly Musculoskeletal: Pulses present and equal in all extremities, no peripheral edema Motor: no focal deficits noted Neurological: CN II-XII grossly intact, no focal motor or sensory deficits noted Skin: Intact with no visualized rashes Psych: Normal affect and mood Course Vital Signs 12/27/23 12/27/23 22:10 22:49 Temperature 98.3 F Pulse Rate 67 66 Respiratory 18 18 Rate Blood Pressure 148/98 123/88 O2 Sat by Pulse 97 96 Oximetry Medical Decision Making - Medical Decision Making Was pt. sent in by a medical professional or institution ([facility], IP ARCHITECT, urgent care, hospital, or alf...) When possible be specific @ -No Did you speak to anyone other than the patient for history (EMS, parent, family, police, friend...)? What history was obtained from this source @ -No Did you review nursing and triage notes (agree or disagree)? Why? @ -I reviewed and agree with nursing and triage notes Were old charts reviewed (outside hosp., previous admission, EMS record, old EKG, old radiological studies, urgent care reports/EKG's, alf records)? Report findings @ -No old charts were reviewed Differential Diagnosis (chest pain, altered mental status, abdominal pain women, abdominal pain men, vaginal bleeding, musculoskeletal, weakness, fever, dyspnea, syncope, headache, dizziness, GI bleed, back pain, seizure, CVA, palpatations, mental health)? @ -Pharyngitis, Zenker's diverticulum, epiglottitis EKG interpreted by me (3pts min.). @ -None done X-rays interpreted by me (1pt min.). @ -None done CT interpreted by me (1pt min.). @ -None done U/S interpreted by me (1pt. min.). @ -None done What testing was considered but not performed or refused? (CT, X-rays, U/S, labs)? Why? @ -None What meds were considered but not given or refused? Why? @ -None Was smoking cessation discussed for >3mins.? @ -No Were there social determinants of health that impacted care today? How? (Home lessness, low income, unemployed, alcoholism, drug addiction, transportation, low edu. Level, literacy, decrease access to med. care, assisted, rehab)? @ -No Was there de-escalation of care discussed even if they declined (Discuss DNR or withdrawal of care, Hospice)? DNR status @ -No What co-morbidities impacted this encounter? (DM, HTN, Smoking, COPD, CAD, Cancer, CVA, ARF, Chemo, Hep., AIDS, mental health diagnosis, sleep apnea, morbid obesity)? @ -None Was patient admitted / discharged? Hospital course, mention meds given and route, prescriptions, significant lab abnormalities, going to OR and other pertinent info. @ -53-year-old male with sore throat. Vital signs stable. Physical exami nation well-appearing male no acute distress. He does have some mild evidence of uvulitis. No hoarseness to his throat. Patient's medications were reviewed he does take lisinopril. Start evaluation obtained. CBC, metabolic panel negative. Swabs are negative. Rapid strep is negative. Patient given 10 mg of IV Decadron. Observed in the emergency department for approximately 3 hours. Reevaluated bedside at 1:10 AM to be stable to condition. Patient discharged. Advised follow-up primary care doctor. Return precautions discussed. Did you discuss the management of the patient with other professionals (professionals i.e. , PA, IP ARCHITECT, lab, RT, psych nurse, clinical social worker, real estate lawyer, teacher, principal gifts officer, field nurse case manager)? Give summary @ -No Was critical care preformed (if so, how long)? @ -No Undiagnosed new problem with uncertain prognosis? @ -No Drug Therapy requiring intensive monitoring for toxicity (Heparin, Nitro, Insulin, Cardizem)? @ -No Were any procedures done? @ -No Diagnosis/symptom? Acute, or Chronic, or Acute on Chronic? Uncomplicated (without systemic symptoms) or Complicated (systemic symptoms)? @ -Uvulitis Side effects of treatment? @ -No Exacerbation, Progression, or Severe Exacerbation? @ -No Poses a threat to life or bodily function? How? (Chest pain, USA, [place], pneumonia, PE, COPD, DKA, ARF, appy, cholecystitis, CVA, Diverticulitis, Homicidal, Suic idal, threat to staff... and all critical care pts) @ -No - Lab Data Result diagrams: 12/27/23 22:31 12/27/23 22:31 Lab Results 12/27/23 12/27/23 12/27/23 Range/Units 22:31 22:31 22:31 WBC 9.0 (3.8-10.6) k/uL RBC 4.74 (4.30-5.90) m/uL Hgb 15.6 (13.0-17.5) gm/dL Hct 42.6 (39.0-53.0) % MCV 90.0 (80.0-100.0) fL MCH 32.8 (25.0-35.0) pg MCHC 36.5 (31.0-37.0) g/dL RDW 13.9 (11.5-15.5) % Plt Count 200 (150-450) k/uL MPV 7.7 Neutrophils % 65 % Lymphocytes % 22 % Monocytes % 6 % Eosinophils % 4 % Basophils % 0 % Neutrophils # 5.9 (1.3-7.7) k/uL Lymphocytes # 2.0 (1.0-4.8) k/uL Monocytes # 0.6 (0-1.0) k/uL Eosinophils # 0.3 (0-0.7) k/uL Basophils # 0.0 (0-0.2) k/uL Sodium 138 (137-145) mmol/L Potassium 3.5 (3.5-5.1) mmol/L Chloride 111 H (98-107) mmol/L Carbon Dioxide 19 L (22-30) mmol/L Anion Gap 8 mmol/L BUN 11 (9-20) mg/dL Creatinine 0.67 (0.66-1.25) mg/dL Est GFR (CKD-EPI)AfAm >90 (>60 ml/min/1.73 sqM) Est GFR (CKD-EPI)NonAf >90 (>60 ml/min/1.73 sqM) Glucose 84 (74-99) mg/dL Calcium 9.6 (8.4-10.2) mg/dL Influenza Type A (PCR) Not Detected (Not Detectd) Influenza Type B (PCR) Not Detected (Not Detectd) RSV (PCR) Not Detected (Not Detectd) SARS-CoV-2 (PCR) Not Detected (Not Detectd) Group A Strep (PCR) (Not Detectd) 12/27/23 Range/Units 22:49 WBC (3.8-10.6) k/uL RBC (4.30-5.90) m/uL Hgb (13.0-17.5) gm/dL Hct (39.0-53.0) % MCV (80.0-100.0) fL MCH (25.0-35.0) pg MCHC (31.0-37.0) g/dL RDW (11.5-15.5) % Plt Count (150-450) k/uL MPV Neutrophils % % Lymphocytes % % Monocytes % % Eosinophils % % Basophils % % Neutrophils # (1.3-7.7) k/uL Lymphocytes # (1.0-4.8) k/uL Monocytes # (0-1.0) k/uL Eosinophils # (0-0.7) k/uL Basophils # (0-0.2) k/uL Sodium (137-145) mmol/L Potassium (3.5-5.1) mmol/L Chloride (98-107) mmol/L Carbon Dioxide (22-30) mmol/L Anion Gap mmol/L BUN (9-20) mg/dL Creatinine (0.66-1.25) mg/dL Est GFR (CKD-EPI)AfAm (>60 ml/min/1.73 sqM) Est GFR (CKD-EPI)NonAf (>60 ml/min/1.73 sqM) Glucose (74-99) mg/dL Calcium (8.4-10.2) mg/dL Influenza Type A (PCR) (Not Detectd) Influenza Type B (PCR) (Not Detectd) RSV (PCR) (Not Detectd) SARS-CoV-2 (PCR) (Not Detectd) Group A Strep (PCR) NOT DETECTED (Not Detectd) Disposition Clinical Impression: Uvulitis Disposition: HOME SELF-CARE Condition: Fair Instructions (If sedation given, give patient instructions): Uvulitis (ED) Additional Instructions: please discontinue taking lisinopril for concerns of angioedema Is patient prescribed a controlled substance at d/c from ED?: No Referrals: Ramya Saul MD [Primary Care Provider] - 1-2 days Time of Disposition: 01:10
[2023-12-27 22:46] LABS: African American GFR (CKD) >90 (>60 ml/min/1.73 sqM); Anion Gap 8 mmol/L; Blood Urea Nitrogen 11 mg/dL (9-20); Calcium 9.6 mg/dL (8.4-10.2); Carbon Dioxide 19 mmol/L (22-30); Chloride 111 mmol/L (98-107); Glucose 84 mg/dL (74-99); Non-African American GFR(CKD) >90 (>60 ml/min/1.73 sqM); Potassium 3.5 mmol/L (3.5-5.1); Sodium 138 mmol/L (137-145)
[2023-12-27] MEDS: DEXAMETHASONE SOD PHOSPHATE 10 MG/ML 1 ML VIAL IV STA (22:51)
[2023-12-27 22:52] LABS: Basophils % (A) 0 %; Eosinophils # (A) 0.3 k/uL (0-0.7); Eosinophils % (A) 4 %; HCT 42.6 % (39.0-53.0); HGB 15.6 gm/dL (13.0-17.5); Lymphocytes % (A) 22 %; MCH 32.8 pg (25.0-35.0); MCHC 36.5 g/dL (31.0-37.0); Mean Platelet Volume 7.7; Monocytes # (A) 0.6 k/uL (0-1.0); Monocytes % (A) 6 %; Neutrophils # (A) 5.9 k/uL (1.3-7.7); Neutrophils % (A) 65 %; Platelet Count 200 k/uL (150-450); RBC 4.74 m/uL (4.30-5.90); RDW 13.9 % (11.5-15.5)
[2023-12-28 01:40] VITALS: BP 128/81; PULSE 62
== END 2023-12-28 01:50 | disposition home or self-care (01) ==
LOC: EC 22:07
DX: K12.2 Cellulitis and abscess of mouth (principal); F17.200 Nicotine dependence, unspecified, uncomplicated; Z88.0 Allergy status to penicillin; Z88.1 Allergy status to other antibiotic agents; Z88.2 Allergy status to sulfonamides; Z88.8 Allergy status to other drugs, medicaments and biological substances; Z91.040 Latex allergy status; Z86.73 Personal history of transient ischemic attack (TIA), and cerebral infarction without residual deficits; Z11.52 Encounter for screening for COVID-19
CPT/HCPCS: 36415; 87651; 80048; 85025; 87636; 99283; 96374; J1100

== ENCOUNTER 2023-12-28 11:31 | Emergency (ER) | payer MEDICARE, OTHER ==
[2023-12-28 11:43] VITALS: BP 127/87; PULSE 66; RESP 18; TEMP 98.3
--- NOTE | 2023-12-28 11:47 | ED ---
Weakness HPI - General Chief complaint: Weakness Stated complaint: weakness Time Seen by Provider: 12/28/23 11:34 Source: patient, EMS, RN notes reviewed, old records reviewed Mode of arrival: EMS Limitations: no limitations - History of Present Illness Initial comments: This is a 53-year-old male presents emergency department via EMS from PCPs office for generalized weakness. Patient has had multiple visits in the last 2 weeks nearly every day in the emergency department. Patient states that he does not like his fci does not want to be there. He states that he is too weak to take care of himself and that he wants to go to a different place or senior living. Patient denies any new complaints these are chronic issues he states he is able to ambulate states he prefers to walk home rather than take at taxi or cab or the bus. Patient denies any chest pain shortness of breath states she has chronic nausea patient recently was seen for urinary retention also and has a Hernandez catheter. - Related Data Home Medications Medication Instructions Recorded Confirmed Nitroglycerin Sl Tabs [Nitrostat] 0.4 mg SL Q5M PRN 08/20/23 12/21/23 metFORMIN HCL 1,000 mg PO BID 10/06/23 12/21/23 Ibuprofen [Motrin] 800 mg PO Q8H PRN 12/06/23 12/21/23 Insulin Glargine,Hum.rec.anlog 10 units SQ HS 12/06/23 12/21/23 [Lantus Solostar Pen] Ondansetron Odt [Zofran ODT] 4 mg PO BID PRN 12/06/23 12/21/23 glipiZIDE [Glucotrol] 5 mg PO AC-BID 12/21/23 12/21/23 Previous Rx's Medication Instructions Recorded ARIPiprazole [Abilify] 15 mg PO DAILY 30 Days #30 tab 12/13/23 Albuterol Nebulized [Ventolin 2.5 mg INHALATION RT-Q6H PRN #1 ml 12/13/23 Nebulized] Aspirin EC [Ecotrin Low Dose] 81 mg PO DAILY 30 Days #30 tab 12/13/23 Atorvastatin [Lipitor] 10 mg PO HS 30 Days #30 tab 12/13/23 Budesonide-Formot 160-4.5 Mcg 2 puff INHALATION RT-BID 30 Days 12/13/23 [Symbicort 160-4.5 Mcg Inhaler] #1 each Cholecalciferol (Vitamin D3) 50 mcg PO DAILY 30 Days #30 tab 12/13/23 [Vitamin D3 (50 Mcg = 2000 Iu)] Esomeprazole Magnesium [NexIUM] 40 mg PO DAILY 30 Days #30 cap 12/13/23 Famotidine [Pepcid] 20 mg PO BID PRN 30 Days #60 tab 12/13/23 Ipratropium-Albuterol Nebulize 3 ml INHALATION RT-QID PRN 30 Days 12/13/23 [Duoneb 0.5 mg-3 mg/3 ml Soln] #1 each Melatonin 5 mg PO HS 30 Days #30 tab 12/13/23 Mirtazapine [Remeron] 15 mg PO HS 30 Days #30 tab 12/13/23 Montelukast [Singulair] 10 mg PO HS 30 Days #30 tab 12/13/23 Nicotine 14Mg/24Hr Patch [Habitrol] 1 patch TRANSDERM DAILY 14 Days 12/13/23 #14 patch Sertraline [Zoloft] 100 mg PO HS 30 Days #30 tab 12/13/23 hydrOXYzine pamoate [Vistaril] 25 mg PO DAILY PRN 30 Days #30 cap 12/13/23 lisinopriL [Zestril] 2.5 mg PO DAILY 30 Days #30 tab 12/13/23 Docusate [Colace] 100 mg PO BID PRN 3 Days #6 capsule 12/22/23 Famotidine [Pepcid] 20 mg PO BID PRN #40 tab 12/22/23 Lidocaine 4% Patch 1 patch TOPICAL DAILY #3 patch 12/22/23 Nicotine Gum (Polacrilex) 2 mg BUCCAL Q8HR PRN 3 Days #6 12/22/23 [Nicorette] pieceofgum Allergies Allergy/AdvReac Type Severity Reaction Status Date / Time dicyclomine HCl [From Bentyl] Allergy Unknown Dyspnea Verified 12/28/23 11:43 latex Allergy Unknown Rash/Hives Verified 12/28/23 11:43 Benzoate Analogues Allergy Unknown Verified 12/28/23 11:43 nitrofurantoin Allergy Nausea Verified 12/28/23 11:43 [From Macrobid] Penicillins Allergy "[place] Verified 12/28/23 11:43 funny" adhesive AdvReac Unknown Itching Verified 12/28/23 11:43 ciprofloxacin AdvReac Unknown Nausea Verified 12/28/23 11:43 Macrolide Antibiotics AdvReac Unknown Nausea Verified 12/28/23 11:43 sulfamethoxazole AdvReac Unknown Unknown Verified 12/28/23 11:43 [From Bactrim] trimethoprim [From Bactrim] AdvReac Unknown Unknown Verified 12/28/23 11:43 diphenhydramine AdvReac Confusion Verified 12/27/23 22:18 [From Benadryl] Review of Systems ROS Statement: Those systems with pertinent positive or pertinent negative responses have been documented in the HPI. ROS Other: All systems not noted in ROS Statement are negative. Past Medical History Past Medical History: Asthma, Chest Pain / Angina, COPD, CVA/TIA, Diabetes Mellitus, GERD/Reflux, Hearing Disorder / Deafness, Hyperlipidemia, Hypertension, Liver Disease, Osteoarthritis (OA), Pneumonia, Seizure Disorder, Sleep Apnea/CPAP/BIPAP Additional Past Medical History / Comment(s): states CVA at 35 yrs old, no weakness @ this time. states seizure at 35 yrs old., DDD- back & neck pain., carpal tunnel syndrome. Has [employer] public guardian. History of Any Multi-Drug Resistant Organisms: None Reported Past Surgical History: Heart Catheterization, Orthopedic Surgery Additional Past Surgical History / Comment(s): Cysts removed, left thumb surgery, colonoscopy 08/24/2019. Skin tags removed from both eyes. Past Anesthesia/Blood Transfusion Reactions: Unable to Obtain, Motion Sickness, Postoperative Nausea & Vomiting (PONV) Past Psychological History: Anxiety, Bipolar, Depression, Schizophrenia Smoking Status: Current every day smoker Past Alcohol Use History: None Reported Past Drug Use History: None Reported - Past Family History Brother(s) Family Medical History: Diabetes Mellitus Additional Family Medical History / Comment(s): Patient has 2 brothers. One from complications from diabetes. The second is alive with diabetes. Sister(s) Family Medical History: Cancer Additional Family Medical History / Comment(s): Patient has one sister with breast cancer. Patient does not have any children. Father Family Medical History: Cancer Additional Family Medical History / Comment(s): Father in his 40s or 50s from colon cancer. Mother Family Medical History: Cancer Additional Family Medical History / Comment(s): Mother at age 68 from lung cancer. General Exam Limitations: no limitations General appearance: alert, in no apparent distress Head exam: Present: atraumatic, normocephalic, normal inspection Eye exam: Present: normal appearance, PERRL, EOMI. Absent: scleral icterus, conjunctival injection, periorbital swelling ENT exam: Present: normal exam, mucous membranes moist Neck exam: Present: normal inspection, full ROM. Absent: tenderness, meningismus, lymphadenopathy Respiratory exam: Present: normal lung sounds bilaterally. Absent: respiratory distress, wheezes, rales, rhonchi, stridor Cardiovascular Exam: Present: regular rate, normal rhythm, normal heart sounds. Absent: systolic murmur, diastolic murmur, rubs, gallop, clicks Extremities exam: Present: other (Lower extremity strength equal bilaterally 5/5 neurovascular intact upper extremity strength equal 5/5) Neurological exam: Present: alert, oriented X3, CN II-XII intact, reflexes normal. Absent: motor sensory deficit Course Vital Signs 12/28/23 11:37 Temperature 98.3 F Pulse Rate 66 Respiratory 18 Rate Blood Pressure 127/87 O2 Sat by Pulse 99 Oximetry Medical Decision Making - Medical Decision Making Was pt. sent in by a medical professional or institution (, PA, STEAM BOX TENDER, urgent care, hospital, or senior living...) When possible be specific @ -PCP Did you speak to anyone other than the patient for history (EMS, parent, family, police, friend...)? What history was obtained from this source @ -No Did you review nursing and triage notes (agree or disagree)? Why? @ -I reviewed and agree with nursing and triage notes Were old charts reviewed (outside hosp., previous admission, EMS record, old EKG, old radiological studies, urgent care reports/EKG's, senior living records)? Report findings @ -No old charts were reviewed Differential Diagnosis (chest pain, altered mental status, abdominal pain women, abdominal pain men, vaginal bleeding, weakness, fever, dyspnea, syncope, headache, dizziness, GI bleed, back pain, seizure, CVA, palpatations, mental health, musculoskeletal)? @Differential Weakness: Hypoglycemia, shock, sepsis, hyponatremia, anemia, infection, MS, ETOH, adverse medicine reaction, overdose, stroke, this is not meant to be an all-inclusive list. EKG interpreted by me (3pts min.). @ -None X-rays interpreted by me (1pt min.). @ -None done CT interpreted by me (1pt min.). @ -None done U/S interpreted by me (1pt. min.). @ -None done What testing was considered but not performed or refused? (CT, X-rays, U/S, labs)? Why? @ -None What meds were considered but not given or refused? Why? @ -None Did you discuss the management of the patient with other professionals (professionals i.e. DrRedd, PA, STEAM BOX TENDER, lab, RT, psych nurse, vp digital marketing social media and crm, dressing machine operator, teacher, booking police officer, manager of case management)? Give summary @ -No Was smoking cessation discussed for >3mins.? @ -No Was critical care preformed (if so, how long)? @ -No Were there social determinants of health that impacted care today? How? (Homelessness, low income, unemployed, alcoholism, drug addiction, transportation, low edu. Level, literacy, decrease access to med. care, custodial, rehab)? @ -No Was there de-escalation of care discussed even if they declined (Discuss DNR or withdrawal of care, Hospice)? DNR status @ -No What co-morbidities impacted this encounter? (DM, HTN, Smoking, COPD, CAD, Cancer, CVA, ARF, Chemo, Hep., AIDS, mental health diagnosis, sleep apnea, morbid obesity)? @ -None Was patient admitted / discharged? Hospital course, mention meds given and route, prescriptions, significant lab abnormalities, going to OR and other pertinent info. @ -Discharge patient has no new complaints he has had multiple recent laboratory studies, imaging no acute findings. Patient able to ambulate around emergency department without any difficulty he even requested to walk home. Patient agrees with plan of discharge and follow-up. Undiagnosed new problem with uncertain prognosis? @ -No Drug Therapy requiring intensive monitoring for toxicity (Heparin, Nitro, Insulin, Cardizem)? @ -No Were any procedures done? @ -No Diagnosis/symptom? @ -Leg pain, fatigue Acute, or Chronic, or Acute on Chronic? @ -Acute Uncomplicated (without systemic symptoms) or Complicated (systemic symptoms)? @ -Uncomplicated Side effects of treatment? @ -No Exacerbation, Progression, or Severe Exacerbation? @ -No Poses a threat to life or bodily function? How? (Chest pain, [place], [place], pneumonia, PE, COPD, DKA, ARF, appy, cholecystitis, CVA, Diverticulitis, Homicidal, Suicidal, threat to staff... and all critical care pts) @ -No Disposition Clinical Impression: Fatigue, Leg pain Disposition: HOME SELF-CARE Condition: Stable Additional Instructions: Please return to the Emergency Department if symptoms worsen or any other concerns. Is patient prescribed a controlled substance at d/c from ED?: No Referrals: Ramya Saul MD [Primary Care Provider] - 1-2 days Time of Disposition: 11:47
[2023-12-28] MEDS: traMADol 50 MG STARTER PACK 3 TAB BTL PO STA (11:55)
== END 2023-12-28 11:59 | disposition home or self-care (01) ==
LOC: EC 11:31
DX: R53.83 Other fatigue (principal); M79.606 Pain in leg, unspecified; F17.200 Nicotine dependence, unspecified, uncomplicated; Z88.1 Allergy status to other antibiotic agents; Z91.040 Latex allergy status; Z88.0 Allergy status to penicillin; Z91.09 Other allergy status, other than to drugs and biological substances; Z88.2 Allergy status to sulfonamides; Z88.8 Allergy status to other drugs, medicaments and biological substances; Z86.73 Personal history of transient ischemic attack (TIA), and cerebral infarction without residual deficits
CPT/HCPCS: 99284

== ENCOUNTER 2023-12-30 19:18 | Emergency (ER) | payer MEDICARE, OTHER ==
[2023-12-30 19:30] VITALS: TEMP 98.1
[2023-12-30 20:26] LABS: Basophils % (A) 0 %; Eosinophils # (A) 0.4 k/uL (0-0.7); Eosinophils % (A) 4 %; HCT 45.3 % (39.0-53.0); HGB 15.5 gm/dL (13.0-17.5); Lymphocytes # (A) 1.6 k/uL (1.0-4.8); Lymphocytes % (A) 21 %; MCH 31.1 pg (25.0-35.0); MCHC 34.1 g/dL (31.0-37.0); MCV 91.1 fL (80.0-100.0); Mean Platelet Volume 7.6; Monocytes # (A) 0.6 k/uL (0-1.0); Monocytes % (A) 8 %; Neutrophils % (A) 64 %; Platelet Count 200 k/uL (150-450); RBC 4.97 m/uL (4.30-5.90); RDW 13.3 % (11.5-15.5); WBC 7.8 k/uL (3.8-10.6)
--- NOTE | 2023-12-30 20:28 | ED ---
Dizziness HPI - General Chief Complaint: Syncope Stated Complaint: syncope Time Seen by Provider: 12/30/23 19:38 Source: patient Mode of arrival: ambulatory Limitations: no limitations - History of Present Illness Initial Comments: Patient is a 53-year-old man, well-known to this department, history of diabetes, who presents with complaint that he has been feeling lightheaded and has passed out a couple times today. The patient denies having anginal symptoms associated, no diaphoresis, dyspnea, chest pain, nausea or vomiting. The patient did not sustain any injury. MD Complaint: other -: hour(s) Timing: waxing/waning Description: lightheadedness History of Same: Yes Severity: moderate Improves With: nothing Worsens With: exertion Associated Symptoms: denies other symptoms - Related Data Home Medications Medication Instructions Recorded Confirmed Nitroglycerin Sl Tabs [Nitrostat] 0.4 mg SL Q5M PRN 08/20/23 12/21/23 metFORMIN HCL 1,000 mg PO BID 10/06/23 12/21/23 Ibuprofen [Motrin] 800 mg PO Q8H PRN 12/06/23 12/21/23 Insulin Glargine,Hum.rec.anlog 10 units SQ HS 12/06/23 12/21/23 [Lantus Solostar Pen] Ondansetron Odt [Zofran ODT] 4 mg PO BID PRN 12/06/23 12/21/23 glipiZIDE [Glucotrol] 5 mg PO AC-BID 12/21/23 12/21/23 Previous Rx's Medication Instructions Recorded ARIPiprazole [Abilify] 15 mg PO DAILY 30 Days #30 tab 12/13/23 Albuterol Nebulized [Ventolin 2.5 mg INHALATION RT-Q6H PRN #1 ml 12/13/23 Nebulized] Aspirin EC [Ecotrin Low Dose] 81 mg PO DAILY 30 Days #30 tab 12/13/23 Atorvastatin [Lipitor] 10 mg PO HS 30 Days #30 tab 12/13/23 Budesonide-Formot 160-4.5 Mcg 2 puff INHALATION RT-BID 30 Days 12/13/23 [Symbicort 160-4.5 Mcg Inhaler] #1 each Cholecalciferol (Vitamin D3) 50 mcg PO DAILY 30 Days #30 tab 06/17/24 [Vitamin D3 (50 Mcg = 2000 Iu)] Esomeprazole Magnesium [NexIUM] 40 mg PO DAILY 30 Days #30 cap 12/13/23 Famotidine [Pepcid] 20 mg PO BID PRN 30 Days #60 tab 12/13/23 Ipratropium-Albuterol Nebulize 3 ml INHALATION RT-QID PRN 30 Days 12/13/23 [Duoneb 0.5 mg-3 mg/3 ml Soln] #1 each Melatonin 5 mg PO HS 30 Days #30 tab 12/13/23 Mirtazapine [Remeron] 15 mg PO HS 30 Days #30 tab 12/13/23 Montelukast [Singulair] 10 mg PO HS 30 Days #30 tab 12/13/23 Nicotine 14Mg/24Hr Patch [Habitrol] 1 patch TRANSDERM DAILY 14 Days 12/13/23 #14 patch Sertraline [Zoloft] 100 mg PO HS 30 Days #30 tab 12/13/23 hydrOXYzine pamoate [Vistaril] 25 mg PO DAILY PRN 30 Days #30 cap 12/13/23 lisinopriL [Zestril] 2.5 mg PO DAILY 30 Days #30 tab 12/13/23 Docusate [Colace] 100 mg PO BID PRN 3 Days #6 capsule 12/22/23 Famotidine [Pepcid] 20 mg PO BID PRN #40 tab 12/22/23 Lidocaine 4% Patch 1 patch TOPICAL DAILY #3 patch 12/22/23 Nicotine Gum (Polacrilex) 2 mg BUCCAL Q8HR PRN 3 Days #6 12/22/23 [Nicorette] pieceofgum Ondansetron Odt [Zofran Odt] 4 mg PO Q8HR PRN #10 tab 01/04/24 Sulfamethox-Tmp 800-160Mg [Bactrim 1 each PO Q12HR #14 tab 01/09/24 DS 800-160 mg] Nitrofurantoin Monohyd/M-Cryst 100 mg PO Q12HR #14 cap 01/13/24 [Macrobid] Nitrofurantoin Monohyd/M-Cryst 100 mg PO Q12HR #10 cap 01/17/24 [Macrobid] Allergies Allergy/AdvReac Type Severity Reaction Status Date / Time dicyclomine HCl [From Bentyl] Allergy Unknown Dyspnea Verified 01/17/24 00:41 latex Allergy Unknown Rash/Hives Verified 01/17/24 00:41 Benzoate Analogues Allergy Unknown Verified 01/17/24 00:41 nitrofurantoin Allergy Nausea Verified 01/17/24 00:41 [From Macrobid] Penicillins Allergy "Neoga Verified 01/17/24 00:41 funny" adhesive AdvReac Unknown Itching Verified 01/17/24 00:41 ciprofloxacin AdvReac Unknown Nausea Verified 01/17/24 00:41 Macrolide Antibiotics AdvReac Unknown Nausea Verified 01/17/24 00:41 sulfamethoxazole AdvReac Unknown Unknown Verified 01/17/24 00:41 [From Bactrim] trimethoprim [From Bactrim] AdvReac Unknown Unknown Verified 01/17/24 00:41 diphenhydramine AdvReac Confusion Verified 01/17/24 00:41 [From Benadryl] Review of Systems ROS Statement: Those systems with pertinent positive or pertinent negative responses have been documented in the HPI. ROS Other: All systems not noted in ROS Statement are negative. Constitutional: Denies: fever, chills, weakness Eyes: Denies: vision change Respiratory: Denies: cough, dyspnea Cardiovascular: Reports: orthopnea, syncope. Denies: chest pain, palpitations, edema Gastrointestinal: Denies: abdominal pain, nausea, vomiting Genitourinary: Denies: dysuria, hematuria Musculoskeletal: Denies: back pain Skin: Denies: rash Neurological: Denies: headache, weakness, numbness, confusion Past Medical History Past Medical History: Asthma, Chest Pain / Angina, COPD, CVA/TIA, Diabetes Mellitus, GERD/Reflux, Hearing Disorder / Deafness, Hyperlipidemia, Hypertension, Liver Disease, Osteoarthritis (OA), Pneumonia, Seizure Disorder, Sleep Apnea/CPAP/BIPAP Additional Past Medical History / Comment(s): states CVA at 35 yrs old, no weakness @ this time. states seizure at 35 yrs old., DDD- back & neck pain., carpal tunnel syndrome. Has [employer] public guardian. History of Any Multi-Drug Resistant Organisms: None Reported Past Surgical History: Heart Catheterization, Orthopedic Surgery Additional Past Surgical History / Comment(s): Cysts removed, left thumb surgery, colonoscopy 08/24/2019. Skin tags removed from both eyes. Past Anesthesia/Blood Transfusion Reactions: Unable to Obtain, Motion Sickness, Postoperative Nausea & Vomiting (PONV) Past Psychological History: Anxiety, Bipolar, Depression, Schizophrenia Smoking Status: Current every day smoker Past Alcohol Use History: None Reported Past Drug Use History: None Reported - Past Family History Brother(s) Family Medical History: Diabetes Mellitus Additional Family Medical History / Comment(s): Patient has 2 brothers. One d from complications from diabetes. The second is alive with diabetes. Sister(s) Family Medical History: Cancer Additional Family Medical History / Comment(s): Patient has one sister with breast cancer. Patient does not have any children. Father Family Medical History: Cancer Additional Family Medical History / Comment(s): Father in his 40s or 50s from colon cancer. Mother Family Medical History: Cancer Additional Family Medical History / Comment(s): Mother at age 68 from lung cancer. General Exam Limitations: no limitations General appearance: alert, in no apparent distress Head exam: Present: atraumatic, normocephalic Eye exam: Present: normal appearance, PERRL. Absent: scleral icterus, conjun ctival injection, nystagmus ENT exam: Present: mucous membranes dry Neck exam: Present: normal inspection, full ROM Respiratory exam: Present: normal lung sounds bilaterally. Absent: respiratory distress, wheezes, rales, rhonchi, stridor, accessory muscle use Cardiovascular Exam: Present: regular rate, normal rhythm, normal heart sounds. Absent: systolic murmur, diastolic murmur, rubs, gallop GI/Abdominal exam: Present: soft. Absent: distended, tenderness, guarding, r ebound, mass, pulsatile mass Extremities exam: Present: normal inspection, normal capillary refill. Absent: pedal edema, calf tenderness Back exam: Present: normal inspection. Absent: CVA tenderness (R), CVA tenderness (L) Neurological exam: Present: alert Skin exam: Present: warm, dry, intact, normal color. Absent: rash Course Vital Signs 12/30/23 12/30/23 12/30/23 19:28 19:44 22:07 Temperature 98.1 F 98.1 F Pulse Rate 68 65 Pulse Rate [ 72 Bilateral Obstetrician/Gynecologist ] Respiratory 18 16 Rate Blood Pressure 145/91 122/85 O2 Sat by Pulse 97 97 Oximetry 07/04/24 07/05/24 07/05/24 23:00 01:00 01:05 Temperature Pulse Rate 76 75 Pulse Rate [ Bilateral Obstetrician/Gynecologist ] Respiratory 16 20 Rate Blood Pressure 128/76 127/75 O2 Sat by Pulse 98 98 98 Oximetry EKG Findings - EKG Results: EKG: interpreted by ERMD, sinus rhythm (Rate 61 bpm) - Blocks, [place], Hypertrophy, ST Abn: AV and intraventricular conduction: right bundle branch block (fixed/interm ittent, complete/incomplete) (Incomplete) QRS axis and voltage: left axis deviation (-30 to -90) (Borderline) Medical Decision Making - Medical Decision Making The patient had chest x-ray that I interpreted as negative for acute infiltrate, pneumothorax, congestive heart failure Was pt. sent in by a medical professional or institution (, PA, CLINICAL DERMATOLOGIST, urgent care, hospital, or long-term...) When possible be specific @ -[No] Did you speak to anyone other than the patient for history (EMS, parent, family, police, friend...)? What history was obtained from this source @ -[No] Did you review nursing and triage notes (agree or disagree)? Why? @ -[I reviewed and agree with nursing and triage notes] Were old charts reviewed (outside hosp., previous admission, EMS record, old EKG, old radiological studies, urgent care reports/EKG's, long-term records)? Report findings @ -[No old charts were reviewed] Differential Diagnosis (chest pain, altered mental status, abdominal pain women, abdominal pain men, vaginal bleeding, weakness, fever, dyspnea, syncope, headache, dizziness, GI bleed, back pain, seizure, CVA, palpatations, mental health, musculoskeletal)? @ -[Differential Syncope: Valvular disease, hypertrophic cardiomyopathy, pulmonary embolism, tamponade, tachycardia, bradycardia, AL, hypovolemia, hemorrhage, dissection, anemia, intracranial hemorrhage, seizure, hypoglycemia, carbon monoxide poisoning, this is not meant to be an all-inclusive list. EKG interpreted by me (3pts min.). @ -[I interpreted as above] X-rays interpreted by me (1pt min.). @ -[I interpreted as above CT interpreted by me (1pt min.). @ -[None done] U/S interpreted by me (1pt. min.). @ -[None done] What testing was considered but not performed or refused? (CT, X-rays, U/S, labs)? Why? @ -[None] What meds were considered but not given or refused? Why? @ -[None] Did you discuss the management of the patient with other professionals (professionals i.e. , PA, CLINICAL DERMATOLOGIST, lab, RT, psych nurse, addiction social worker, drill rig operator, teacher, aoc plans intelligence officer, case preparer and liner)? Give summary @ -[No] Was smoking cessation discussed for >3mins.? @ -[No] Was critical care preformed (if so, how long)? @ -[No] Were there social determinants of health that impacted care today? How? (Homelessness, low income, unemployed, alcoholism, drug addiction, transportation, low edu. Level, literacy, decrease access to med. care, long term, rehab)? @ -[No] Was there de-escalation of care discussed even if they declined (Discuss DNR or withdrawal of care, Hospice)? DNR status @ -[No] What co-morbidities impacted this encounter? (DM, HTN, Smoking, COPD, CAD, Cancer, CVA, ARF, Chemo, Hep., AIDS, mental health diagnosis, sleep apnea, morbid obesity)? @ -[Diabetes Was patient admitted / discharged? Hospital course, mention meds given and rou te, prescriptions, significant lab abnormalities, going to OR and other pertinent info. @ -[hospital course] Undiagnosed new problem with uncertain prognosis? @ -[No] Drug Therapy requiring intensive monitoring for toxicity (Heparin, Nitro, Insulin, Cardizem)? @ -[No] Were any procedures done? @ -[No] Diagnosis/symptom? @ -[Acute syncopal episode Hyperglycemia, acute on chronic Acute, or Chronic, or Acute on Chronic? @ -[Acute Uncomplicated (without systemic symptoms) or Complicated (systemic symptoms)? @ -[Uncomplicated Side effects of treatment? @ -[No] Exacerbation, Progression, or Severe Exacerbation? @ -[No] Poses a threat to life or bodily function? How? (Chest pain, USA, AL, pneumonia, PE, COPD, DKA, ARF, appy, cholecystitis, CVA, Diverticulitis, Homicidal, Suicidal, threat to staff... and all critical care pts) @ -[No] - Lab Data Result diagrams: 12/30/23 20:06 12/30/23 20:06 Lab Results 12/30/23 12/30/23 12/30/23 Range/Units 20:06 20:06 20:06 WBC 7.8 (3.8-10.6) k/uL RBC 4.97 (4.30-5.90) m/uL Hgb 15.5 (13.0-17.5) gm/dL Hct 45.3 (39.0-53.0) % MCV 91.1 (80.0-100.0) fL MCH 31.1 (25.0-35.0) pg MCHC 34.1 (31.0-37.0) g/dL RDW 13.3 (11.5-15.5) % Plt Count 200 (150-450) k/uL MPV 7.6 Neutrophils % 64 % Lymphocytes % 21 % Monocytes % 8 % Eosinophils % 4 % Basophils % 0 % Neutrophils # 5.0 (1.3-7.7) k/uL Lymphocytes # 1.6 (1.0-4.8) k/uL Monocytes # 0.6 (0-1.0) k/uL Eosinophils # 0.4 (0-0.7) k/uL Basophils # 0.0 (0-0.2) k/uL PT 9.8 L (10.0-12.5) sec INR 0.9 (<1.2) APTT 22.2 (22.0-30.0) sec Sodium 139 (137-145) mmol/L Potassium 3.9 (3.5-5.1) mmol/L Chloride 108 H (98-107) mmol/L Carbon Dioxide 24 (22-30) mmol/L Anion Gap 7 mmol/L BUN 14 (9-20) mg/dL Creatinine 0.53 L (0.66-1.25) mg/dL Est GFR (CKD-EPI)AfAm >90 (>60 ml/min/1.73 sqM) Est GFR (CKD-EPI)NonAf >90 (>60 ml/min/1.73 sqM) Glucose 213 H (74-99) mg/dL Calcium 9.6 (8.4-10.2) mg/dL Magnesium 1.9 (1.6-2.3) mg/dL Total Bilirubin 0.4 (0.2-1.3) mg/dL AST 24 (17-59) U/L ALT 44 (4-49) U/L Alkaline Phosphatase 115 (38-126) U/L Troponin I (0.000-0.034) ng/mL Total Protein 6.1 L (6.3-8.2) g/dL Albumin 4.2 (3.5-5.0) g/dL 12/30/23 Range/Units 20:06 WBC (3.8-10.6) k/uL RBC (4.30-5.90) m/uL Hgb (13.0-17.5) gm/dL Hct (39.0-53.0) % MCV (80.0-100.0) fL MCH (25.0-35.0) pg MCHC (31.0-37.0) g/dL RDW (11.5-15.5) % Plt Count (150-450) k/uL MPV Neutrophils % % Lymphocytes % % Monocytes % % Eosinophils % % Basophils % % Neutrophils # (1.3-7.7) k/uL Lymphocytes # (1.0-4.8) k/uL Monocytes # (0-1.0) k/uL Eosinophils # (0-0.7) k/uL Basophils # (0-0.2) k/uL PT (10.0-12.5) sec INR (<1.2) APTT (22.0-30.0) sec Sodium (137-145) mmol/L Potassium (3.5-5.1) mmol/L Chloride (98-107) mmol/L Carbon Dioxide (22-30) mmol/L Anion Gap mmol/L BUN (9-20) mg/dL Creatinine (0.66-1.25) mg/dL Est GFR (CKD-EPI)AfAm (>60 ml/min/1.73 sqM) Est GFR (CKD-EPI)NonAf (>60 ml/min/1.73 sqM) Glucose (74-99) mg/dL Calcium (8.4-10.2) mg/dL Magnesium (1.6-2.3) mg/dL Total Bilirubin (0.2-1.3) mg/dL AST (17-59) U/L ALT (4-49) U/L Alkaline Phosphatase (38-126) U/L Troponin I <0.012 (0.000-0.034) ng/mL Total Protein (6.3-8.2) g/dL Albumin (3.5-5.0) g/dL Disposition Clinical Impression: Dehydration Disposition: HOME SELF-CARE Condition: Good Instructions (If sedation given, give patient instructions): Dehydration (ED) Is patient prescribed a controlled substance at d/c from ED?: No Referrals: Ramya Saul MD [Primary Care Provider] - 1-2 days
[2023-12-30 20:47] LABS: ALT 44 U/L (4-49); AST 24 U/L (17-59); African American GFR (CKD) >90 (>60 ml/min/1.73 sqM); Albumin 4.2 g/dL (3.5-5.0); Alkaline Phosphatase 115 U/L (38-126); Anion Gap 7 mmol/L; Blood Urea Nitrogen 14 mg/dL (9-20); Calcium 9.6 mg/dL (8.4-10.2); Carbon Dioxide 24 mmol/L (22-30); Chloride 108 mmol/L (98-107); Glucose 213 mg/dL (74-99); Magnesium 1.9 mg/dL (1.6-2.3); Non-African American GFR(CKD) >90 (>60 ml/min/1.73 sqM); Potassium 3.9 mmol/L (3.5-5.1); Sodium 139 mmol/L (137-145); Total Bilirubin 0.4 mg/dL (0.2-1.3); Total Protein 6.1 g/dL (6.3-8.2)
[2023-12-30 20:49] LABS: INR 0.9 (<1.2); Partial Thromboplastin Time 22.2 sec (22.0-30.0); Prothrombin Time 9.8 sec (10.0-12.5)
--- NOTE | 2023-12-30 21:50 | XR ---
EXAM: XR chest 1V portable CLINICAL INDICATION:Male, 53 years old with history of syncope; MERGED WITH [facility] COMPARISON: 12/21/2023 TECHNIQUE: Chest single view. FINDINGS: Lines/tubes/devices: None. Cardiomediastinum: Cardiac silhouette appears mildly enlarged. Unremarkable mediastinal silhouette. Vasculature: No increased pulmonary vasculature. Lungs/pleura: No consolidation, sizeable effusion, or visible pneumothorax. Stable mildly prominent interstitial tom ng markings, likely chronic changes. Bones/soft tissues: Bony thorax appears grossly intact as seen, with mild degenerative changes.. Regional soft tissues ap pear unremarkable. Other: Rounded peripherally calcified structure in the left upper quadrant likely related to splenic pseudocyst, was better seen previously. IMPRESSION: No acute cardiopulmonary findings.
[2023-12-30] MEDS: SODIUM CHLORIDE 0.9% 500 ML 500 ML IV STA (22:11)
[2023-12-30] MEDS: ONDANSETRON 4 MG/2 ML VIAL IVP STA (22:22)
[2023-12-31 01:03] VITALS: BP 127/75; RESP 20
[2023-12-31 01:04] VITALS: PULSE 72
== END 2023-12-31 01:06 | disposition home or self-care (01) ==
LOC: EC 19:18
DX: E86.0 Dehydration (principal); R55 Syncope and collapse; I45.10 Unspecified right bundle-branch block; E11.9 Type 2 diabetes mellitus without complications; F17.200 Nicotine dependence, unspecified, uncomplicated; Z91.040 Latex allergy status; Z88.8 Allergy status to other drugs, medicaments and biological substances; Z88.2 Allergy status to sulfonamides; Z88.0 Allergy status to penicillin; Z88.1 Allergy status to other antibiotic agents; Z86.73 Personal history of transient ischemic attack (TIA), and cerebral infarction without residual deficits; Z91.09 Other allergy status, other than to drugs and biological substances; Z79.4 Long term (current) use of insulin; Z79.84 Long term (current) use of oral hypoglycemic drugs
CPT/HCPCS: 36415; 93005; 80053; 83735; 84484; 85025; 85610; 85730; 71045; 99284; 96374; J2405

== ENCOUNTER 2024-01-01 15:23 | Emergency (ER) | payer MEDICARE, OTHER ==
--- NOTE | 2024-01-01 16:09 | ED ---
General Adult HPI - General Source: patient, RN notes reviewed Mode of arrival: ambulatory Limitations: no limitations <Isabelle Hill - Last Filed: 01/01/24 16:07> <Valorie Oro - Last Filed: 01/02/24 02:49> - General Chief complaint: Weakness Stated complaint: dehydration, high sugar Time Seen by Provider: 01/01/24 16:07 - History of Present Illness Initial comments: Quick Note: This is a 53-year-old male who presents to the emergency department for dehydration and hyperglycemia. States he has not had anything to eat or drink. His sugars have been in the 200s. States that this morning he did not know what day it was and feels weak. (Isabelle Hill) 53-year-old male well-known to our ER presenting with chief complaint of "my sugars are high and I feel dehydrated". States that he has not really been eating or drinking today. Admits to nausea, no vomiting. His blood sugars been in the 200s. When asked if he is taking his medication as prescribed he states "I am trying to". States that he feels a bit fatigued and feels he may be dehydrated. He has some vague abdominal discomfort. No chest pain or difficulty breathing. (Valorie Oro) - Related Data Home Medications Medication Instructions Recorded Confirmed Nitroglycerin Sl Tabs [Nitrostat] 0.4 mg SL Q5M PRN 08/20/23 12/21/23 metFORMIN HCL 1,000 mg PO BID 10/06/23 12/21/23 Ibuprofen [Motrin] 800 mg PO Q8H PRN 12/06/23 12/21/23 Insulin Glargine,Hum.rec.anlog 10 units SQ HS 12/06/23 12/21/23 [Lantus Solostar Pen] Ondansetron Odt [Zofran ODT] 4 mg PO BID PRN 12/06/23 12/21/23 glipiZIDE [Glucotrol] 5 mg PO AC-BID 12/21/23 12/21/23 Previous Rx's Medication Instructions Recorded ARIPiprazole [Abilify] 15 mg PO DAILY 30 Days #30 tab 12/13/23 Albuterol Nebulized [Ventolin 2.5 mg INHALATION RT-Q6H PRN #1 ml 12/13/23 Nebulized] Aspirin EC [Ecotrin Low Dose] 81 mg PO DAILY 30 Days #30 tab 12/13/23 Atorvastatin [Lipitor] 10 mg PO HS 30 Days #30 tab 12/13/23 Budesonide-Formot 160-4.5 Mcg 2 puff INHALATION RT-BID 30 Days 12/13/23 [Symbicort 160-4.5 Mcg Inhaler] #1 each Cholecalciferol (Vitamin D3) 50 mcg PO DAILY 30 Days #30 tab 12/13/23 [Vitamin D3 (50 Mcg = 2000 Iu)] Esomeprazole Magnesium [NexIUM] 40 mg PO DAILY 30 Days #30 cap 12/13/23 Famotidine [Pepcid] 20 mg PO BID PRN 30 Days #60 tab 12/13/23 Ipratropium-Albuterol Nebulize 3 ml INHALATION RT-QID PRN 30 Days 12/13/23 [Duoneb 0.5 mg-3 mg/3 ml Soln] #1 each Melatonin 5 mg PO HS 30 Days #30 tab 12/13/23 Mirtazapine [Remeron] 15 mg PO HS 30 Days #30 tab 12/13/23 Montelukast [Singulair] 10 mg PO HS 30 Days #30 tab 12/13/23 Nicotine 14Mg/24Hr Patch [Habitrol] 1 patch TRANSDERM DAILY 14 Days 12/13/23 #14 patch Sertraline [Zoloft] 100 mg PO HS 30 Days #30 tab 12/13/23 hydrOXYzine pamoate [Vistaril] 25 mg PO DAILY PRN 30 Days #30 cap 12/13/23 lisinopriL [Zestril] 2.5 mg PO DAILY 30 Days #30 tab 12/13/23 Docusate [Colace] 100 mg PO BID PRN 3 Days #6 capsule 12/22/23 Famotidine [Pepcid] 20 mg PO BID PRN #40 tab 12/22/23 Lidocaine 4% Patch 1 patch TOPICAL DAILY #3 patch 12/22/23 Nicotine Gum (Polacrilex) 2 mg BUCCAL Q8HR PRN 3 Days #6 12/22/23 [Nicorette] pieceofgum Allergies Allergy/AdvReac Type Severity Reaction Status Date / Time dicyclomine HCl [From Bentyl] Allergy Unknown Dyspnea Verified 01/01/24 16:28 latex Allergy Unknown Rash/Hives Verified 01/01/24 16:28 Benzoate Analogues Allergy Unknown Verified 01/01/24 16:28 nitrofurantoin Allergy Nausea Verified 01/01/24 16:28 [From Macrobid] Penicillins Allergy "[place] Verified 01/01/24 16:28 funny" adhesive AdvReac Unknown Itching Verified 01/01/24 16:28 ciprofloxacin AdvReac Unknown Nausea Verified 01/01/24 16:28 Macrolide Antibiotics AdvReac Unknown Nausea Verified 01/01/24 16:28 sulfamethoxazole AdvReac Unknown Unknown Verified 01/01/24 16:28 [From Bactrim] trimethoprim [From Bactrim] AdvReac Unknown Unknown Verified 01/01/24 16:28 diphenhydramine AdvReac Confusion Verified 01/01/24 16:28 [From Benadryl] Review of Systems ROS Other: All systems not noted in ROS Statement are negative. <Isabelle Hill - Last Filed: 01/01/24 16:07> ROS Other: All systems not noted in ROS Statement are negative. <Valorie Oro - Last Filed: 01/02/24 02:49> ROS Statement: Those systems with pertinent positive or pertinent negative responses have been documented in the HPI. Past Medical History Past Medical History: Asthma, Chest Pain / Angina, COPD, CVA/TIA, Diabetes Mellitus, GERD/Reflux, Hearing Disorder / Deafness, Hyperlipidemia, Hypertension, Liver Disease, Osteoarthritis (OA), Pneumonia, Seizure Disorder, Sleep Apnea/CPAP/BIPAP Additional Past Medical History / Comment(s): states CVA at 35 yrs old, no weakness @ this time. states seizure at 35 yrs old., DDD- back & neck pain., carpal tunnel syndrome. Has [employer] public guardian. History of Any Multi-Drug Resistant Organisms: None Reported Past Surgical History: Heart Catheterization, Orthopedic Surgery Additional Past Surgical History / Comment(s): Cysts removed, left thumb surgery, colonoscopy 08/24/2019. Skin tags removed from both eyes. Past Anesthesia/Blood Transfusion Reactions: Unable to Obtain, Motion Sickness, Postoperative Nausea & Vomiting (PONV) Past Psychological History: Anxiety, Bipolar, Depression, Schizophrenia Smoking Status: Current every day smoker Past Alcohol Use History: None Reported Past Drug Use History: None Reported - Past Family History Brother(s) Family Medical History: Diabetes Mellitus Additional Family Medical History / Comment(s): Patient has 2 brothers. One from complications from diabetes. The second is alive with diabetes. Sister(s) Family Medical History: Cancer Additional Family Medical History / Comment(s): Patient has one sister with breast cancer. Patient does not have any children. Father Family Medical History: Cancer Additional Family Medical History / Comment(s): Father in his 40s or 50s from colon cancer. Mother Family Medical History: Cancer Additional Family Medical History / Comment(s): Mother at age 68 from lung cancer. <Isabelle Hill - Last Filed: 01/01/24 16:07> General Exam <Isabelle Hill - Last Filed: 01/01/24 16:07> General appearance: alert, in no apparent distress Head exam: Present: atraumatic, normocephalic Eye exam: Present: normal appearance, EOMI ENT exam: Present: normal oropharynx, mucous membranes moist Neck exam: Present: normal inspection. Absent: meningismus Respiratory exam: Absent: respiratory distress Cardiovascular Exam: Present: regular rate Neurological exam: Present: alert, oriented X3 Psychiatric exam: Present: normal affect, normal mood Skin exam: Present: warm, dry, normal color <Valorie Oro - Last Filed: 01/02/24 02:49> - General Exam Comments Initial Comments: Visual Physical Exam Vital signs reviewed General: Well-appearing, nontoxic, no acute distress. Head: Normocephalic, atraumatic Eyes: PERRLA, EOMI ENT: Airway patent Chest: Nonlabored breathing Skin: No visual rash, normal skin tone Neuro: Alert and oriented 3 Musculoskeletal: No gross abnormalities (Isabelle Hill) Course Vital Signs 01/01/24 01/01/24 16:24 18:23 Temperature 98.3 F 97.8 F Pulse Rate 70 84 Respiratory 16 14 Rate Blood Pressure 126/81 120/76 O2 Sat by Pulse 98 96 Oximetry Medical Decision Making <Isabelle Hill - Last Filed: 01/01/24 16:07> <Valorie Oro - Last Filed: 01/02/24 02:49> - Medical Decision Making I performed the QuickNote portion of this chart. Signed Isabelle Hill PA-C. (Isabelle Hill) Was pt. sent in by a medical professional or institution (SEAN Cordova, DIRECTOR OUTCOMES, urgent care, hospital, or intermediate...) When possible be specific @ -No Did you speak to anyone other than the patient for history (EMS, parent, family, police, friend...)? What history was obtained from this source @ -No Did you review nursing and triage notes (agree or disagree)? Why? @ -I reviewed and agree with nursing and triage notes Were old charts reviewed (outside hosp., previous admission, EMS record, old EKG, old radiological studies, urgent care reports/EKG's, intermediate records)? Report findings @ -No old charts were reviewed Differential Diagnosis (chest pain, altered mental status, abdominal pain women, abdominal pain men, vaginal bleeding, weakness, fever, dyspnea, syncope, headache, dizziness, GI bleed, back pain, seizure, CVA, palpatations, mental health, musculoskeletal)? @ -Differential includes dehydration, viral illness, hyperglycemia, this is not an all-inclusive list EKG interpreted by me (3pts min.). @ -As above X-rays interpreted by me (1pt min.). @ -None done CT interpreted by me (1pt min.). @ -None done U/S interpreted by me (1pt. min.). @ -None done What testing was considered but not performed or refused? (CT, X-rays, U/S, labs)? Why? @ -None What meds were considered but not given or refused? Why? @ -None Did you discuss the management of the patient with other professionals (professionals i.e. SEAN Cordova, DIRECTOR OUTCOMES, lab, RT, psych nurse, high school social science teacher, school manager, teacher, ambulance officer, case assistant)? Give summary @ -No Was smoking cessation discussed for >3mins.? @ -No Was critical care preformed (if so, how long)? @ -No Were there social determinants of health that impacted care today? How? (Homelessness, low income, unemployed, alcoholism, drug addiction, transportation, low edu. Level, literacy, decrease access to med. care, detention, rehab)? @ -No Was there de-escalation of care discussed even if they declined (Discuss DNR or withdrawal of care, Hospice)? DNR status @ -No What co-morbidities impacted this encounter? (DM, HTN, Smoking, COPD, CAD, Cancer, CVA, ARF, Chemo, Hep., AIDS, mental health diagnosis, sleep apnea, morbid obesity)? @ -None Was patient admitted / discharged? Hospital course, mention meds given and route, prescriptions, significant lab abnormalities, going to OR and other pertinent info. @ -53-year-old male well-known to our ER presenting with chief complaint of "my sugars are high and I think I am dehydrated". Patient has not been vomiting or having any diarrhea. He appears well-nourished and hydrated. His blood sugar is elevated at 159. Patient admits that he does not always take his medication as prescribed. He is counseled on the importance of taking his medication. He is provided with IV fluids. Discharged home. Follow-up with PCP. Report back to ER with any new or worsening symptoms. Discussed return parameters and answered all questions. Patient conveyed verbal understanding and agreed to the plan. I discussed this case in detail with my attending Dr. Sheppard Undiagnosed new problem with uncertain prognosis? @ -No Drug Therapy requiring intensive monitoring for toxicity (Heparin, Nitro, Insulin, Cardizem)? @ -No Were any procedures done? @ -No Diagnosis/symptom? @ -Hyperglycemia Acute, or Chronic, or Acute on Chronic? @ -Acute Uncomplicated (without systemic symptoms) or Complicated (systemic symptoms)? @ -Uncomplicated Side effects of treatment? @ -No Exacerbation, Progression, or Severe Exacerbation? @ -No Poses a threat to life or bodily function? How? (Chest pain, [place], [place], pneumonia, PE, COPD, DKA, ARF, appy, cholecystitis, CVA, Diverticulitis, Homicidal, Suicidal, threat to staff... and all critical care pts) @ -Low likelihood (Valorie Oro) - Lab Data Lab Results 01/01/24 Range/Units 17:25 POC Glucose (mg/dL) 159 H (70-110) mg/dL POC Glu Staffing Branch Manager ID Cherelle France Disposition <Isabelle Hill - Last Filed: 01/01/24 16:07> Is patient prescribed a controlled substance at d/c from ED?: No Time of Disposition: 17:19 <Valorie Oro - Last Filed: 01/02/24 02:49> Clinical Impression: Hyperglycemia Disposition: HOME SELF-CARE Condition: Fair Instructions (If sedation given, give patient instructions): Diabetic Hyperglycemia (ED) Additional Instructions: Follow-up with your PCP. Report back to ER with any new or worsening symptoms. Referrals: Ramya Saul MD [Primary Care Provider] - 1-2 days
[2024-01-01] MEDS: SODIUM CHLORIDE 0.9% 1,000 ML IV STA (17:23)
[2024-01-01 17:26] LABS: Glucose,Whole Blood 159 mg/dL (70-110)
[2024-01-01] MEDS: ONDANSETRON ODT 4 MG TAB PO STA (17:58)
[2024-01-01 18:27] VITALS: BP 120/76; PULSE 84; RESP 14; TEMP 97.8
== END 2024-01-01 19:05 | disposition home or self-care (01) ==
LOC: EC 15:23
DX: E11.65 Type 2 diabetes mellitus with hyperglycemia (principal); F17.200 Nicotine dependence, unspecified, uncomplicated; Z79.84 Long term (current) use of oral hypoglycemic drugs; Z79.4 Long term (current) use of insulin; Z88.0 Allergy status to penicillin; Z88.1 Allergy status to other antibiotic agents; Z88.2 Allergy status to sulfonamides; Z88.8 Allergy status to other drugs, medicaments and biological substances; Z91.040 Latex allergy status; Z86.73 Personal history of transient ischemic attack (TIA), and cerebral infarction without residual deficits
CPT/HCPCS: 36415; 96360; 99284

== ENCOUNTER 2024-01-02 13:02 | Emergency (ER) | payer MEDICARE, OTHER ==
[2024-01-02 13:29] VITALS: BP 121/78; PULSE 74; RESP 16; TEMP 98.4
[2024-01-02 13:30] LABS: Glucose,Whole Blood 249 mg/dL (70-110)
--- NOTE | 2024-01-02 14:17 | ED ---
Recheck HPI - General Chief Complaint: Weakness Stated Complaint: Recheck hyperglycemia Source: patient, RN notes reviewed, old records reviewed Mode of arrival: ambulatory Limitations: no limitations - History of Present Illness Initial Comments: QN 53 male to the ER for evaluation of abnormally elevated blood sugar on the outpatient basis at home. Patient concerned of elevated blood sugar with multiple ER visits this week - Related Data Home Medications Medication Instructions Recorded Confirmed Nitroglycerin Sl Tabs [Nitrostat] 0.4 mg SL Q5M PRN 08/20/23 12/21/23 metFORMIN HCL 1,000 mg PO BID 10/06/23 12/21/23 Ibuprofen [Motrin] 800 mg PO Q8H PRN 12/06/23 12/21/23 Insulin Glargine,Hum.rec.anlog 10 units SQ HS 12/06/23 12/21/23 [Lantus Solostar Pen] Ondansetron Odt [Zofran ODT] 4 mg PO BID PRN 12/06/23 12/21/23 glipiZIDE [Glucotrol] 5 mg PO AC-BID 12/21/23 12/21/23 Previous Rx's Medication Instructions Recorded ARIPiprazole [Abilify] 15 mg PO DAILY 30 Days #30 tab 12/13/23 Albuterol Nebulized [Ventolin 2.5 mg INHALATION RT-Q6H PRN #1 ml 12/13/23 Nebulized] Aspirin EC [Ecotrin Low Dose] 81 mg PO DAILY 30 Days #30 tab 12/13/23 Atorvastatin [Lipitor] 10 mg PO HS 30 Days #30 tab 12/13/23 Budesonide-Formot 160-4.5 Mcg 2 puff INHALATION RT-BID 30 Days 12/13/23 [Symbicort 160-4.5 Mcg Inhaler] #1 each Cholecalciferol (Vitamin D3) 50 mcg PO DAILY 30 Days #30 tab 12/13/23 [Vitamin D3 (50 Mcg = 2000 Iu)] Esomeprazole Magnesium [NexIUM] 40 mg PO DAILY 30 Days #30 cap 12/13/23 Famotidine [Pepcid] 20 mg PO BID PRN 30 Days #60 tab 12/13/23 Ipratropium-Albuterol Nebulize 3 ml INHALATION RT-QID PRN 30 Days 12/13/23 [Duoneb 0.5 mg-3 mg/3 ml Soln] #1 each Melatonin 5 mg PO HS 30 Days #30 tab 12/13/23 Mirtazapine [Remeron] 15 mg PO HS 30 Days #30 tab 12/13/23 Montelukast [Singulair] 10 mg PO HS 30 Days #30 tab 12/13/23 Nicotine 14Mg/24Hr Patch [Habitrol] 1 patch TRANSDERM DAILY 14 Days 12/13/23 #14 patch Sertraline [Zoloft] 100 mg PO HS 30 Days #30 tab 12/13/23 hydrOXYzine pamoate [Vistaril] 25 mg PO DAILY PRN 30 Days #30 cap 12/13/23 lisinopriL [Zestril] 2.5 mg PO DAILY 30 Days #30 tab 12/13/23 Docusate [Colace] 100 mg PO BID PRN 3 Days #6 capsule 12/22/23 Famotidine [Pepcid] 20 mg PO BID PRN #40 tab 12/22/23 Lidocaine 4% Patch 1 patch TOPICAL DAILY #3 patch 12/22/23 Nicotine Gum (Polacrilex) 2 mg BUCCAL Q8HR PRN 3 Days #6 12/22/23 [Nicorette] pieceofgum Ondansetron Odt [Zofran Odt] 4 mg PO Q8HR PRN #10 tab 01/04/24 Allergies Allergy/AdvReac Type Severity Reaction Status Date / Time dicyclomine HCl [From Bentyl] Allergy Unknown Dyspnea Verified 01/04/24 11:13 latex Allergy Unknown Rash/Hives Verified 01/04/24 11:13 Benzoate Analogues Allergy Unknown Verified 01/04/24 11:13 nitrofurantoin Allergy Nausea Verified 01/04/24 11:13 [From Macrobid] Penicillins Allergy "[place] Verified 01/04/24 11:13 funny" adhesive AdvReac Unknown Itching Verified 01/04/24 11:13 ciprofloxacin AdvReac Unknown Nausea Verified 01/04/24 11:13 Macrolide Antibiotics AdvReac Unknown Nausea Verified 01/04/24 11:13 sulfamethoxazole AdvReac Unknown Unknown Verified 01/04/24 11:13 [From Bactrim] trimethoprim [From Bactrim] AdvReac Unknown Unknown Verified 01/04/24 11:13 diphenhydramine AdvReac Confusion Verified 01/04/24 11:13 [From Benaleenaryl] Review of Systems ROS Statement: Those systems with pertinent positive or pertinent negative responses have been documented in the HPI. ROS Other: All systems not noted in ROS Statement are negative. Past Medical History Past Medical History: Asthma, Chest Pain / Angina, COPD, CVA/TIA, Diabetes Mellitus, GERD/Reflux, Hearing Disorder / Deafness, Hyperlipidemia, Hypertension, Liver Disease, Osteoarthritis (OA), Pneumonia, Seizure Disorder, Sleep Apnea/CPAP/BIPAP Additional Past Medical History / Comment(s): states CVA at 35 yrs old, no weakness @ this time. states seizure at 35 yrs old., DDD- back & neck pain., carpal tunnel syndrome. Has [employer] public guardian. History of Any Multi-Drug Resistant Organisms: None Reported Past Surgical History: Heart Catheterization, Orthopedic Surgery Additional Past Surgical History / Comment(s): Cysts removed, left thumb surgery, colonoscopy 08/24/2019. Skin tags removed from both eyes. Past Anesthesia/Blood Transfusion Reactions: Unable to Obtain, Motion Sickness, Postoperative Nausea & Vomiting (PONV) Past Psychological History: Anxiety, Bipolar, Depression, Schizophrenia Smoking Status: Current every day smoker Past Alcohol Use History: None Reported Past Drug Use History: None Reported - Past Family History Brother(s) Family Medical History: Diabetes Mellitus Additional Family Medical History / Comment(s): Patient has 2 brothers. One from complications from diabetes. The second is alive with diabetes. Sister(s) Family Medical History: Cancer Additional Family Medical History / Comment(s): Patient has one sister with breast cancer. Patient does not have any children. Father Family Medical History: Cancer Additional Family Medical History / Comment(s): Father in his 40s or 50s from colon cancer. Mother Family Medical History: Cancer Additional Family Medical History / Comment(s): Mother at age 68 from lung cancer. General Exam Limitations: no limitations General appearance: alert, in no apparent distress Head exam: Present: atraumatic, normocephalic, normal inspection Eye exam: Present: normal appearance, PERRL, EOMI. Absent: scleral icterus, conjunctival injection, periorbital swelling ENT exam: Present: normal exam, mucous membranes moist Neck exam: Present: normal inspection. Absent: tenderness, meningismus, lymphadenopathy Respiratory exam: Present: normal lung sounds bilaterally. Absent: respiratory distress, wheezes, rales, rhonchi, stridor Cardiovascular Exam: Present: regular rate, normal rhythm, normal heart sounds. Absent: systolic murmur, diastolic murmur, rubs, gallop, clicks GI/Abdominal exam: Present: soft, normal bowel sounds. Absent: distended, tenderness, guarding, rebound, rigid Extremities exam: Present: normal inspection, full ROM, normal capillary refill. Absent: tenderness, pedal edema, joint swelling, calf tenderness Back exam: Present: normal inspection Neurological exam: Present: alert, oriented X3, CN II-XII intact Psychiatric exam: Present: normal affect, normal mood Skin exam: Present: warm, dry, intact, normal color. Absent: rash Course Vital Signs 01/02/24 13:27 Temperature 98.4 F Pulse Rate 74 Respiratory 16 Rate Blood Pressure 121/78 O2 Sat by Pulse 97 Oximetry - Reevaluation(s) Reevaluation #1: 01/02/24 14:16 QN completed by myself Dr Sheppard Reevaluation #2: 01/02/24 14:17 Patient did call ahead informing emergency department of his elevated blood sugar prompting his return to the emergency department today Medical records reviewed Multiple ER visits this week and month Medical Decision Making - Lab Data Lab Results 01/02/24 Range/Units 13:28 POC Glucose (mg/dL) 249 H (70-110) mg/dL POC Glu Learning Support Specialist JEANCARLOS Mamadou Bower Disposition Clinical Impression: Left against medical advice Disposition: LEFT AGAINST MEDICAL ADVICE Condition: Undetermined Is patient prescribed a controlled substance at d/c from ED?: No Referrals: Ramya Saul MD [Primary Care Provider] - 1-2 days
== END 2024-01-02 16:20 | disposition left against medical advice (07) ==
LOC: EC 13:02
DX: Z53.29 Procedure and treatment not carried out because of patient's decision for other reasons (principal); F17.200 Nicotine dependence, unspecified, uncomplicated; Z91.040 Latex allergy status; Z88.2 Allergy status to sulfonamides; Z88.1 Allergy status to other antibiotic agents; Z88.0 Allergy status to penicillin; Z88.8 Allergy status to other drugs, medicaments and biological substances; Z91.09 Other allergy status, other than to drugs and biological substances
CPT/HCPCS: 36415; 99284

== ENCOUNTER 2024-01-04 11:09 | Emergency (ER) | payer MEDICARE, OTHER ==
[2024-01-04 11:15] LABS: Glucose,Whole Blood 301 mg/dL (70-110)
[2024-01-04] MEDS: SODIUM CHLORIDE 0.9% 1,000 ML IV ONE (11:33)
[2024-01-04] MEDS: droPERidol 5 MG/2 ML VIAL IVP ONE (11:33)
--- NOTE | 2024-01-04 11:39 | ED ---
Abdominal Pain HPI - General Chief Complaint: Abdominal Pain Stated Complaint: Abd pain Time Seen by Provider: 01/04/24 11:16 Source: patient, RN notes reviewed Mode of arrival: wheelchair Limitations: no limitations - History of Present Illness Initial Comments: 53-year-old male presents emergency department complaint of abdominal pain. Patient states started with nausea vomiting diarrhea this morning. Patient states he cannot hold any down denies any sick contacts no fevers or chills. Patient denies any localized abdominal pain no chest pain or shortness of breath no fevers or chills. - Related Data Home Medications Medication Instructions Recorded Confirmed Nitroglycerin Sl Tabs [Nitrostat] 0.4 mg SL Q5M PRN 08/20/23 12/21/23 metFORMIN HCL 1,000 mg PO BID 10/06/23 12/21/23 Ibuprofen [Motrin] 800 mg PO Q8H PRN 12/06/23 12/21/23 Insulin Glargine,Hum.rec.anlog 10 units SQ HS 12/06/23 12/21/23 [Lantus Solostar Pen] Ondansetron Odt [Zofran ODT] 4 mg PO BID PRN 12/06/23 12/21/23 glipiZIDE [Glucotrol] 5 mg PO AC-BID 12/21/23 12/21/23 Previous Rx's Medication Instructions Recorded ARIPiprazole [Abilify] 15 mg PO DAILY 30 Days #30 tab 12/13/23 Albuterol Nebulized [Ventolin 2.5 mg INHALATION RT-Q6H PRN #1 ml 12/13/23 Nebulized] Aspirin EC [Ecotrin Low Dose] 81 mg PO DAILY 30 Days #30 tab 12/13/23 Atorvastatin [Lipitor] 10 mg PO HS 30 Days #30 tab 12/13/23 Budesonide-Formot 160-4.5 Mcg 2 puff INHALATION RT-BID 30 Days 12/13/23 [Symbicort 160-4.5 Mcg Inhaler] #1 each Cholecalciferol (Vitamin D3) 50 mcg PO DAILY 30 Days #30 tab 12/13/23 [Vitamin D3 (50 Mcg = 2000 Iu)] Esomeprazole Magnesium [NexIUM] 40 mg PO DAILY 30 Days #30 cap 12/13/23 Famotidine [Pepcid] 20 mg PO BID PRN 30 Days #60 tab 12/13/23 Ipratropium-Albuterol Nebulize 3 ml INHALATION RT-QID PRN 30 Days 12/13/23 [Duoneb 0.5 mg-3 mg/3 ml Soln] #1 each Melatonin 5 mg PO HS 30 Days #30 tab 12/13/23 Mirtazapine [Remeron] 15 mg PO HS 30 Days #30 tab 12/13/23 Montelukast [Singulair] 10 mg PO HS 30 Days #30 tab 12/13/23 Nicotine 14Mg/24Hr Patch [Habitrol] 1 patch TRANSDERM DAILY 14 Days 12/13/23 #14 patch Sertraline [Zoloft] 100 mg PO HS 30 Days #30 tab 12/13/23 hydrOXYzine pamoate [Vistaril] 25 mg PO DAILY PRN 30 Days #30 cap 12/13/23 lisinopriL [Zestril] 2.5 mg PO DAILY 30 Days #30 tab 12/13/23 Docusate [Colace] 100 mg PO BID PRN 3 Days #6 capsule 12/22/23 Famotidine [Pepcid] 20 mg PO BID PRN #40 tab 12/22/23 Lidocaine 4% Patch 1 patch TOPICAL DAILY #3 patch 12/22/23 Nicotine Gum (Polacrilex) 2 mg BUCCAL Q8HR PRN 3 Days #6 12/22/23 [Nicorette] pieceofgum Ondansetron Odt [Zofran Odt] 4 mg PO Q8HR PRN #10 tab 01/04/24 Allergies Allergy/AdvReac Type Severity Reaction Status Date / Time dicyclomine HCl [From Bentyl] Allergy Unknown Dyspnea Verified 01/04/24 11:13 latex Allergy Unknown Rash/Hives Verified 01/04/24 11:13 Benzoate Analogues Allergy Unknown Verified 01/04/24 11:13 nitrofurantoin Allergy Nausea Verified 01/04/24 11:13 [From Macrobid] Penicillins Allergy "[place] Verified 01/04/24 11:13 funny" adhesive AdvReac Unknown Itching Verified 01/04/24 11:13 ciprofloxacin AdvReac Unknown Nausea Verified 01/04/24 11:13 Macrolide Antibiotics AdvReac Unknown Nausea Verified 01/04/24 11:13 sulfamethoxazole AdvReac Unknown Unknown Verified 01/04/24 11:13 [From Bactrim] trimethoprim [From Bactrim] AdvReac Unknown Unknown Verified 01/04/24 11:13 diphenhydramine AdvReac Confusion Verified 01/04/24 11:13 [From Benadryl] Review of Systems ROS Statement: Those systems with pertinent positive or pertinent negative responses have been documented in the HPI. ROS Other: All systems not noted in ROS Statement are negative. Past Medical History Past Medical History: Asthma, Chest Pain / Angina, COPD, CVA/TIA, Diabetes Mellitus, GERD/Reflux, Hearing Disorder / Deafness, Hyperlipidemia, Hypertension, Liver Disease, Osteoarthritis (OA), Pneumonia, Seizure Disorder, Sleep Apnea/CPAP/BIPAP Additional Past Medical History / Comment(s): states CVA at 35 yrs old, no weakness @ this time. states seizure at 35 yrs old., DDD- back & neck pain., carpal tunnel syndrome. Has [employer] public guardian. History of Any Multi-Drug Resistant Organisms: None Reported Past Surgical History: Heart Catheterization, Orthopedic Surgery Additional Past Surgical History / Comment(s): Cysts removed, left thumb surgery, colonoscopy 08/24/2019. Skin tags removed from both eyes. Past Anesthesia/Blood Transfusion Reactions: Unable to Obtain, Motion Sickness, Postoperative Nausea & Vomiting (PONV) Past Psychological History: Anxiety, Bipolar, Depression, Schizophrenia Smoking Status: Current every day smoker Past Alcohol Use History: None Reported Past Drug Use History: None Reported - Past Family History Brother(s) Family Medical History: Diabetes Mellitus Additional Family Medical History / Comment(s): Patient has 2 brothers. One from complications from diabetes. The second is alive with diabetes. Sister(s) Family Medical History: Cancer Additional Family Medical History / Comment(s): Patient has one sister with breast cancer. Patient does not have any children. Father Family Medical History: Cancer Additional Family Medical History / Comment(s): Father in his 40s or 50s from colon cancer. Mother Family Medical History: Cancer Additional Family Medical History / Comment(s): Mother at age 68 from lung cancer. General Exam Limitations: no limitations General appearance: alert, in no apparent distress Head exam: Present: atraumatic, normocephalic, normal inspection Respiratory exam: Present: normal lung sounds bilaterally. Absent: respiratory distress, wheezes, rales, rhonchi, stridor Cardiovascular Exam: Present: regular rate, normal rhythm, normal heart sounds. Absent: systolic murmur, diastolic murmur, rubs, gallop, clicks GI/Abdominal exam: Present: soft, tenderness, normal bowel sounds. Absent: distended, guarding, rebound, rigid Back exam: Absent: CVA tenderness (R), CVA tenderness (L) Course Vital Signs 01/04/24 01/04/24 11:10 13:02 Temperature 97.9 F 98.4 F Pulse Rate 86 58 L Respiratory 16 18 Rate Blood Pressure 150/80 110/76 O2 Sat by Pulse 97 97 Oximetry Medical Decision Making - Medical Decision Making Was pt. sent in by a medical professional or institution (, PA, WELDER ASSEMBLER, urgent care, hospital, or care home...) When possible be specific @ -No Did you speak to anyone other than the patient for history (EMS, parent, family, police, friend...)? What history was obtained from this source @ -No Did you review nursing and triage notes (agree or disagree)? Why? @ -I reviewed and agree with nursing and triage notes Were old charts reviewed (outside hosp., previous admission, EMS record, old EKG , old radiological studies, urgent care reports/EKG's, care home records)? Report findings @ -No old charts were reviewed Differential Diagnosis (chest pain, altered mental status, abdominal pain women, abdominal pain men, vaginal bleeding, weakness, fever, dyspnea, syncope, headache, dizziness, GI bleed, back pain, seizure, CVA, palpatations, mental health, musculoskeletal)? @ -Differential Abdominal Pain Men: Appendicitis, cholecystitis, diverticulosis, ischemic bowel, pancreatitis, hepat itis, UTI, gastroenteritis, AAA, incarcerated hernia, bowel obstruction, constipation, inflammatory bowel, hepatitis, peptic ulcer disease, splenic infarction, perforated viscus, testicular torsion, this is not meant to be an all-inclusive list EKG interpreted by me (3pts min.). @ -None X-rays interpreted by me (1pt min.). @ -X-ray KUB shows no acute process CT interpreted by me (1pt min.). @ -None done U/S interpreted by me (1pt. min.). @ -None done What testing was considered but not performed or refused? (CT, X-rays, U/S, labs)? Why? @ -None What meds were considered but not given or refused? Why? @ -None Did you discuss the management of the patient with other professionals (professionals i.e. , PA, WELDER ASSEMBLER, lab, RT, psych nurse, social media developer, bit shaver, teacher, tactical response group officer, block and case maker)? Give summary @ -No Was smoking cessation discussed for >3mins.? @ -No Was critical care preformed (if so, how long)? @ -No Were there social determinants of health that impacted care today? How? (Homelessness, low income, unemployed, alcoholism, drug addiction, transportation, low edu. Level, literacy, decrease access to med. care, custodial, rehab)? @ -No Was there de-escalation of care discussed even if they declined (Discuss DNR or withdrawal of care, Hospice)? DNR status @ -No What co-morbidities impacted this encounter? (DM, HTN, Smoking, COPD, CAD, Cancer, CVA, ARF, Chemo, Hep., AIDS, mental health diagnosis, sleep apnea, morbid obesity)? @ -None Was patient admitted / discharged? Hospital course, mention meds given and route, prescriptions, significant lab abnormalities, going to OR and other pertinent info. @ -Discharge patient laboratory studies unremarkable patient is well-known does have mild hyperglycemia related to his diabetes feels improved after IV fluids and medications. Undiagnosed new problem with uncertain prognosis? @ -No Drug Therapy requiring intensive monitoring for toxicity (Heparin, Nitro, Insulin, Cardizem)? @ -No Were any procedures done? @ -No Diagnosis/symptom? @ -Gastroenteritis Acute, or Chronic, or Acute on Chronic? @ -Acute Uncomplicated (without systemic symptoms) or Complicated (systemic symptoms)? @ -Uncomplicated Side effects of treatment? @ -No Exacerbation, Progression, or Severe Exacerbation? @ -No Poses a threat to life or bodily function? How? (Chest pain, [place], [place], pneumonia, PE, COPD, DKA, ARF, appy, cholecystitis, CVA, Diverticulitis, Homicidal, Suicidal, threat to staff... and all critical care pts) @ -No - Lab Data Result diagrams: 01/04/24 11:27 01/04/24 11:27 Lab Results 01/04/24 01/04/24 01/04/24 Range/Units 11:14 11:27 11:27 WBC 8.8 (3.8-10.6) k/uL RBC 5.32 (4.30-5.90) m/uL Hgb 16.5 (13.0-17.5) gm/dL Hct 48.1 (39.0-53.0) % MCV 90.5 (80.0-100.0) fL MCH 31.1 (25.0-35.0) pg MCHC 34.3 (31.0-37.0) g/dL RDW 13.7 (11.5-15.5) % Plt Count 208 (150-450) k/uL MPV 8.3 Neutrophils % 76 % Lymphocytes % 12 % Monocytes % 9 % Eosinophils % 2 % Basophils % 0 % Neutrophils # 6.7 (1.3-7.7) k/uL Lymphocytes # 1.1 (1.0-4.8) k/uL Monocytes # 0.8 (0-1.0) k/uL Eosinophils # 0.1 (0-0.7) k/uL Basophils # 0.0 (0-0.2) k/uL Sodium 136 L (137-145) mmol/L Potassium 3.9 (3.5-5.1) mmol/L Chloride 107 (98-107) mmol/L Carbon Dioxide 22 (22-30) mmol/L Anion Gap 7 mmol/L BUN 13 (9-20) mg/dL Creatinine 0.75 (0.66-1.25) mg/dL Est GFR (CKD-EPI)AfAm >90 (>60 ml/min/1.73 sqM) Est GFR (CKD-EPI)NonAf >90 (>60 ml/min/1.73 sqM) Glucose 296 H (74-99) mg/dL POC Glucose (mg/dL) 301 H (70-110) mg/dL POC Glu Manifold Operator ID Eric Hamiltonn Calcium 9.8 (8.4-10.2) mg/dL Total Bilirubin 0.7 (0.2-1.3) mg/dL AST 29 (17-59) U/L ALT 42 (4-49) U/L Alkaline Phosphatase 73 (38-126) U/L Total Protein 6.3 (6.3-8.2) g/dL Albumin 4.2 (3.5-5.0) g/dL Lipase 95 (23-300) U/L Disposition Clinical Impression: Gastroenteritis Disposition: HOME SELF-CARE Condition: Stable Instructions (If sedation given, give patient instructions): Gastroenteritis (ED) Additional Instructions: Please return to the Emergency Department if symptoms worsen or any other concerns. Prescriptions: Ondansetron Odt [Zofran Odt] 4 mg PO Q8HR PRN #10 tab PRN Reason: Nausea Is patient prescribed a controlled substance at d/c from ED?: No Referrals: Ramya Saul MD [Primary Care Provider] - 1-2 days Time of Disposition: 12:35
[2024-01-04 11:53] LABS: ALT 42 U/L (4-49); AST 29 U/L (17-59); African American GFR (CKD) >90 (>60 ml/min/1.73 sqM); Albumin 4.2 g/dL (3.5-5.0); Alkaline Phosphatase 73 U/L (38-126); Anion Gap 7 mmol/L; Blood Urea Nitrogen 13 mg/dL (9-20); Calcium 9.8 mg/dL (8.4-10.2); Carbon Dioxide 22 mmol/L (22-30); Chloride 107 mmol/L (98-107); Glucose 296 mg/dL (74-99); Lipase 95 U/L (23-300); Non-African American GFR(CKD) >90 (>60 ml/min/1.73 sqM); Potassium 3.9 mmol/L (3.5-5.1); Sodium 136 mmol/L (137-145); Total Bilirubin 0.7 mg/dL (0.2-1.3); Total Protein 6.3 g/dL (6.3-8.2)
--- NOTE | 2024-01-04 11:56 | XR ---
EXAMINATION TYPE: XR KUB DATE OF EXAM: 01/04/2024 COMPARISON: 01/09/2023 INDICATION: Abdomen pain TECHNIQUE: Single view abdomen supine view FINDINGS: There is a normal bowel gas pattern. Psoas margins are normal. No organomegaly is present. Large calcific cysts may be within the region of the spleen. Surgical clips are in the region of the prostate. Large benign-appearing calcifications in the left i nferior hemipelvis. IMPRESSION: 1. Stable abdomen, no acute suspicious changes.
[2024-01-04 12:10] LABS: Basophils % (A) 0 %; Eosinophils # (A) 0.1 k/uL (0-0.7); Eosinophils % (A) 2 %; HCT 48.1 % (39.0-53.0); HGB 16.5 gm/dL (13.0-17.5); Lymphocytes # (A) 1.1 k/uL (1.0-4.8); Lymphocytes % (A) 12 %; MCH 31.1 pg (25.0-35.0); MCHC 34.3 g/dL (31.0-37.0); MCV 90.5 fL (80.0-100.0); Mean Platelet Volume 8.3; Monocytes # (A) 0.8 k/uL (0-1.0); Monocytes % (A) 9 %; Neutrophils # (A) 6.7 k/uL (1.3-7.7); Neutrophils % (A) 76 %; Platelet Count 208 k/uL (150-450); RBC 5.32 m/uL (4.30-5.90); RDW 13.7 % (11.5-15.5); WBC 8.8 k/uL (3.8-10.6)
[2024-01-04 13:03] VITALS: BP 110/76; PULSE 58; RESP 18; TEMP 98.4
== END 2024-01-04 13:04 | disposition home or self-care (01) ==
LOC: EC 11:09
DX: K52.9 Noninfective gastroenteritis and colitis, unspecified (principal); E11.65 Type 2 diabetes mellitus with hyperglycemia; F17.200 Nicotine dependence, unspecified, uncomplicated; Z88.8 Allergy status to other drugs, medicaments and biological substances; Z91.040 Latex allergy status; Z88.1 Allergy status to other antibiotic agents; Z88.0 Allergy status to penicillin; Z91.09 Other allergy status, other than to drugs and biological substances; Z88.2 Allergy status to sulfonamides; Z79.4 Long term (current) use of insulin; Z79.84 Long term (current) use of oral hypoglycemic drugs; Z86.73 Personal history of transient ischemic attack (TIA), and cerebral infarction without residual deficits
CPT/HCPCS: 36415; 80053; 83690; 85025; 74018; 99284; 96374; 96361; J1790

== ENCOUNTER 2024-01-07 16:04 | Emergency (ER) | payer MEDICARE, OTHER ==
[2024-01-07 16:10] VITALS: RESP 16
--- NOTE | 2024-01-07 16:35 | ED ---
General Adult HPI - General Chief complaint: Urogenital Stated complaint: Urogenital Time Seen by Provider: 01/07/24 16:09 Source: patient Mode of arrival: ambulatory Limitations: no limitations - History of Present Illness Initial comments: Dictation was produced using [employer] dictation software. please excuse any grammatical, word or spelling errors. Chief Complaint: 53-year-old male with urinary retention History of Present Illness: Patient is a 53-year-old male he has been suffering from urinary touch for the last several days. He went to his urologist appointment with Dr. Plaza and had his Hernandez catheter removed this morning. Patient states that since then he was unable to urinate. She feels bloated to his lower belly. Says he tried to go multiple times and would only get dribbles and when he strains. Patient was told by urologist that he has a enlarged prostate. The ROS documented in this emergency department record has been reviewed and confirmed by me. Those systems with pertinent positive or negative responses have been documented in the HPI. All other systems are other negative and/or noncontributory. - Related Data Home Medications Medication Instructions Recorded Confirmed Nitroglycerin Sl Tabs [Nitrostat] 0.4 mg SL Q5M PRN 08/20/23 12/21/23 metFORMIN HCL 1,000 mg PO BID 10/06/23 12/21/23 Ibuprofen [Motrin] 800 mg PO Q8H PRN 12/06/23 12/21/23 Insulin Glargine,Hum.rec.anlog 10 units SQ HS 12/06/23 12/21/23 [Lantus Solostar Pen] Ondansetron Odt [Zofran ODT] 4 mg PO BID PRN 12/06/23 12/21/23 glipiZIDE [Glucotrol] 5 mg PO AC-BID 12/21/23 12/21/23 Previous Rx's Medication Instructions Recorded ARIPiprazole [Abilify] 15 mg PO DAILY 30 Days #30 tab 12/13/23 Albuterol Nebulized [Ventolin 2.5 mg INHALATION RT-Q6H PRN #1 ml 12/13/23 Nebulized] Aspirin EC [Ecotrin Low Dose] 81 mg PO DAILY 30 Days #30 tab 12/13/23 Atorvastatin [Lipitor] 10 mg PO HS 30 Days #30 tab 12/13/23 Budesonide-Formot 160-4.5 Mcg 2 puff INHALATION RT-BID 30 Days 12/13/23 [Symbicort 160-4.5 Mcg Inhaler] #1 each Cholecalciferol (Vitamin D3) 50 mcg PO DAILY 30 Days #30 tab 12/13/23 [Vitamin D3 (50 Mcg = 2000 Iu)] Esomeprazole Magnesium [NexIUM] 40 mg PO DAILY 30 Days #30 cap 12/13/23 Famotidine [Pepcid] 20 mg PO BID PRN 30 Days #60 tab 12/13/23 Ipratropium-Albuterol Nebulize 3 ml INHALATION RT-QID PRN 30 Days 12/13/23 [Duoneb 0.5 mg-3 mg/3 ml Soln] #1 each Melatonin 5 mg PO HS 30 Days #30 tab 12/13/23 Mirtazapine [Remeron] 15 mg PO HS 30 Days #30 tab 12/13/23 Montelukast [Singulair] 10 mg PO HS 30 Days #30 tab 12/13/23 Nicotine 14Mg/24Hr Patch [Habitrol] 1 patch TRANSDERM DAILY 14 Days 12/13/23 #14 patch Sertraline [Zoloft] 100 mg PO HS 30 Days #30 tab 12/13/23 hydrOXYzine pamoate [Vistaril] 25 mg PO DAILY PRN 30 Days #30 cap 12/13/23 lisinopriL [Zestril] 2.5 mg PO DAILY 30 Days #30 tab 12/13/23 Docusate [Colace] 100 mg PO BID PRN 3 Days #6 capsule 12/22/23 Famotidine [Pepcid] 20 mg PO BID PRN #40 tab 12/22/23 Lidocaine 4% Patch 1 patch TOPICAL DAILY #3 patch 12/22/23 Nicotine Gum (Polacrilex) 2 mg BUCCAL Q8HR PRN 3 Days #6 12/22/23 [Nicorette] pieceofgum Ondansetron Odt [Zofran Odt] 4 mg PO Q8HR PRN #10 tab 01/04/24 Allergies Allergy/AdvReac Type Severity Reaction Status Date / Time dicyclomine HCl [From Bentyl] Allergy Unknown Dyspnea Verified 01/04/24 11:13 latex Allergy Unknown Rash/Hives Verified 01/04/24 11:13 Benzoate Analogues Allergy Unknown Verified 01/04/24 11:13 nitrofurantoin Allergy Nausea Verified 01/04/24 11:13 [From Macrobid] Penicillins Allergy "[place] Verified 01/04/24 11:13 funny" adhesive AdvReac Unknown Itching Verified 01/04/24 11:13 ciprofloxacin AdvReac Unknown Nausea Verified 01/04/24 11:13 Macrolide Antibiotics AdvReac Unknown Nausea Verified 01/04/24 11:13 sulfamethoxazole AdvReac Unknown Unknown Verified 01/04/24 11:13 [From Bactrim] trimethoprim [From Bactrim] AdvReac Unknown Unknown Verified 01/04/24 11:13 diphenhydramine AdvReac Confusion Verified 01/04/24 11:13 [From Benadryl] Review of Systems ROS Statement: Those systems with pertinent positive or pertinent negative responses have been documented in the HPI. ROS Other: All systems not noted in ROS Statement are negative. Past Medical History Past Medical History: Asthma, Chest Pain / Angina, COPD, CVA/TIA, Diabetes Mellitus, GERD/Reflux, Hearing Disorder / Deafness, Hyperlipidemia, Hypertension, Liver Disease, Osteoarthritis (OA), Pneumonia, Seizure Disorder, S leep Apnea/CPAP/BIPAP Additional Past Medical History / Comment(s): states CVA at 35 yrs old, no weakness @ this time. states seizure at 35 yrs old., DDD- back & neck pain., c arpal tunnel syndrome. Has [employer] public guardian. History of Any Multi-Drug Resistant Organisms: None Reported Past Surgical History: Heart Catheterization, Orthopedic Surgery Additional Past Surgical History / Comment(s): Cysts removed, left thumb surgery, colonoscopy 08/24/2019. Skin tags removed from both eyes. Past Anesthesia/Blood Transfusion Reactions: Unable to Obtain, Motion Sickness, Postoperative Nausea & Vomiting (PONV) Past Psychological History: Anxiety, Bipolar, Depression, Schizophrenia Smoking Status: Current every day smoker Past Alcohol Use History: None Reported Past Drug Use History: None Reported - Past Family History Brother(s) Family Medical History: Diabetes Mellitus Additional Family Medical History / Comment(s): Patient has 2 brothers. One from complications from diabetes. The second is alive with diabetes. Sister(s) Family Medical History: Cancer Additional Family Medical History / Comment(s): Patient has one sister with breast cancer. Patient does not have any children. Father Family Medical History: Cancer Additional Family Medical History / Comment(s): Father in his 40s or 50s from colon cancer. Mother Family Medical History: Cancer Additional Family Medical History / Comment(s): Mother at age 68 from lung cancer. General Exam - General Exam Comments Initial Comments: PHYSICAL EXAM: General Impression: Alert and oriented x3, not in acute distress HEENT: Normocephalic atraumatic, extra-ocular movements intact, pupils equal and reactive to light bilaterally, mucous membranes moist. Cardiovascular: Heart regular rate and rhythm Chest: Able to complete full sentences, no retractions, no tachypnea Abdomen: abdomen soft, n fullness to the suprapubic abdomen non-distended, no organomegaly Musculoskeletal: Pulses present and equal in all extremities, no peripheral edema Motor: no focal deficits noted Neurological: CN II-XII grossly intact, no focal motor or sensory deficits noted Skin: Intact with no visualized rashes Psych: Normal affect and mood Limitations: no limitations Course Vital Signs 01/07/24 16:07 Temperature 98.2 F Pulse Rate 86 Respiratory 16 Rate Blood Pressure 140/81 O2 Sat by Pulse 98 Oximetry Medical Decision Making - Medical Decision Making Was pt. sent in by a medical professional or institution (, PA, MOTION PICTURES CARTOONIST, urgent care, hospital, or detention...) When possible be specific @ -No Did you speak to anyone other than the patient for history (EMS, parent, family, police, friend...)? What history was obtained from this source @ -No Did you review nursing and triage notes (agree or disagree)? Why? @ -I reviewed and agree with nursing and triage notes Were old charts reviewed (outside hosp., previous admission, EMS record, old EKG, old radiological studies, urgent care reports/EKG's, detention records)? Report findings @ -No old charts were reviewed Differential Diagnosis (chest pain, altered mental status, abdominal pain women, abdominal pain men, vaginal bleeding, musculoskeletal, weakness, fever, dyspnea, syncope, headache, dizziness, GI bleed, back pain, seizure, CVA, palpatations, mental health)? @ -Not applicable EKG interpreted by me (3pts min.). @ -None done X-rays interpreted by me (1pt min.). @ -None done CT interpreted by me (1pt min.). @ -None done U/S interpreted by me (1pt. min.). @ -None done What testing was considered but not performed or refused? (CT, X-rays, U/S, labs)? Why? @ -None What meds were considered but not given or refused? Why? @ -None Was smoking cessation discussed for >3mins.? @ -No Were there social determinants of health that impacted care today? How? (Homelessness, low income, unemployed, alcoholism, drug addiction, transportation, low edu. Level, literacy, decrease access to med. care, fdc, rehab)? @ -No Was there de-escalation of care discussed even if they declined (Discuss DNR or withdrawal of care, Hospice)? DNR status @ -No What co-morbidities impacted this encounter? (DM, HTN, Smoking, COPD, CAD, Cancer, CVA, ARF, Chemo, Hep., AIDS, mental health diagnosis, sleep apnea, morbid obesity)? @ -None Was patient admitted / discharged? Hospital course, mention meds given and route, prescriptions, significant lab abnormalities, going to OR and other pertinent info. @ -53-year-old male presents with urinary retention. He just had his Hernandez removed this morning at urologist office. Vital signs stable. Patient bladder scan was performed with 158 cc of urine. Patient clinically concerning for urinary retention. Hernandez catheter replaced. Patient discharged told to follow back up with urology. Did you discuss the management of the patient with other professionals (professionals i.e. , PA, MOTION PICTURES CARTOONIST, lab, RT, psych nurse, child welfare social worker, pharmaceutical analyst, teacher, tank officer, field case manager)? Give summary @ -No Was critical care preformed (if so, how long)? @ -No Undiagnosed new problem with uncertain prognosis? @ -No Drug Therapy requiring intensive monitoring for toxicity (Heparin, Nitro, Insulin, Cardizem)? @ -No Were any procedures done? @ -No Diagnosis/symptom? Acute, or Chronic, or Acute on Chronic? Uncomplicated (wit hout systemic symptoms) or Complicated (systemic symptoms)? @ -Urinary retention Side effects of treatment? @ -No Exacerbation, Progression, or Severe Exacerbation? @ -No Poses a threat to life or bodily function? How? (Chest pain, [place], [place], pneumonia, PE, COPD, DKA, ARF, appy, cholecystitis, CVA, Diverticulitis, Homicidal, Suicidal, threat to staff... and all critical care pts) @ -No Disposition Clinical Impression: Urinary retention Disposition: HOME SELF-CARE Condition: Fair Instructions (If sedation given, give patient instructions): Enlarged Prostate (BPH) (ED) Is patient prescribed a controlled substance at d/c from ED?: No Referrals: Marky Plaza MD [STAFF PHYSICIAN] - 1-2 days Time of Disposition: 16:35
[2024-01-07 16:53] VITALS: BP 135/76; PULSE 84; TEMP 98.1
== END 2024-01-07 16:59 | disposition home or self-care (01) ==
LOC: EC 16:04
DX: R33.8 Other retention of urine (principal); F17.200 Nicotine dependence, unspecified, uncomplicated; Z88.0 Allergy status to penicillin; Z88.1 Allergy status to other antibiotic agents; Z88.2 Allergy status to sulfonamides; Z88.8 Allergy status to other drugs, medicaments and biological substances; Z91.040 Latex allergy status; Z86.73 Personal history of transient ischemic attack (TIA), and cerebral infarction without residual deficits
CPT/HCPCS: 99283

== ENCOUNTER 2024-01-09 13:54 | Emergency (ER) | payer MEDICARE, OTHER ==
[2024-01-09 13:57] VITALS: TEMP 98
--- NOTE | 2024-01-09 14:19 | ED ---
General Adult HPI - General Chief complaint: Urogenital Stated complaint: Urogenital Time Seen by Provider: 01/09/24 14:00 Source: patient, RN notes reviewed, old records reviewed Mode of arrival: ambulatory Limitations: no limitations - History of Present Illness Initial comments: This is a 53-year-old male who presents to the emergency department states that he cannot urinate at all. Patient only has 100 cc on his bladder scanner. Patient denies any abdominal pain patient has nausea vomiting or diarrhea. Patient denies any back pain. Patient denies any recent fevers. Patient states he does not think he is been drinking enough lately. Patient states he had a Hernandez catheter removed on Wednesday - Related Data Home Medications Medication Instructions Recorded Confirmed Nitroglycerin Sl Tabs [Nitrostat] 0.4 mg SL Q5M PRN 08/20/23 12/21/23 metFORMIN HCL 1,000 mg PO BID 10/06/23 12/21/23 Ibuprofen [Motrin] 800 mg PO Q8H PRN 12/06/23 12/21/23 Insulin Glargine,Hum.rec.anlog 10 units SQ HS 12/06/23 12/21/23 [Lantus Solostar Pen] Ondansetron Odt [Zofran ODT] 4 mg PO BID PRN 12/06/23 12/21/23 glipiZIDE [Glucotrol] 5 mg PO AC-BID 12/21/23 12/21/23 Previous Rx's Medication Instructions Recorded ARIPiprazole [Abilify] 15 mg PO DAILY 30 Days #30 tab 12/13/23 Albuterol Nebulized [Ventolin 2.5 mg INHALATION RT-Q6H PRN #1 ml 12/13/23 Nebulized] Aspirin EC [Ecotrin Low Dose] 81 mg PO DAILY 30 Days #30 tab 12/13/23 Atorvastatin [Lipitor] 10 mg PO HS 30 Days #30 tab 12/13/23 Budesonide-Formot 160-4.5 Mcg 2 puff INHALATION RT-BID 30 Days 12/13/23 [Symbicort 160-4.5 Mcg Inhaler] #1 each Cholecalciferol (Vitamin D3) 50 mcg PO DAILY 30 Days #30 tab 12/13/23 [Vitamin D3 (50 Mcg = 2000 Iu)] Esomeprazole Magnesium [NexIUM] 40 mg PO DAILY 30 Days #30 cap 12/13/23 Famotidine [Pepcid] 20 mg PO BID PRN 30 Days #60 tab 12/13/23 Ipratropium-Albuterol Nebulize 3 ml INHALATION RT-QID PRN 30 Days 12/13/23 [Duoneb 0.5 mg-3 mg/3 ml Soln] #1 each Melatonin 5 mg PO HS 30 Days #30 tab 12/13/23 Mirtazapine [Remeron] 15 mg PO HS 30 Days #30 tab 12/13/23 Montelukast [Singulair] 10 mg PO HS 30 Days #30 tab 12/13/23 Nicotine 14Mg/24Hr Patch [Habitrol] 1 patch TRANSDERM DAILY 14 Days 12/13/23 #14 patch Sertraline [Zoloft] 100 mg PO HS 30 Days #30 tab 12/13/23 hydrOXYzine pamoate [Vistaril] 25 mg PO DAILY PRN 30 Days #30 cap 12/13/23 lisinopriL [Zestril] 2.5 mg PO DAILY 30 Days #30 tab 12/13/23 Docusate [Colace] 100 mg PO BID PRN 3 Days #6 capsule 12/22/23 Famotidine [Pepcid] 20 mg PO BID PRN #40 tab 12/22/23 Lidocaine 4% Patch 1 patch TOPICAL DAILY #3 patch 12/22/23 Nicotine Gum (Polacrilex) 2 mg BUCCAL Q8HR PRN 3 Days #6 12/22/23 [Nicorette] pieceofgum Ondansetron Odt [Zofran Odt] 4 mg PO Q8HR PRN #10 tab 01/04/24 Sulfamethox-Tmp 800-160Mg [Bactrim 1 each PO Q12HR #14 tab 01/09/24 DS 800-160 mg] Allergies Allergy/AdvReac Type Severity Reaction Status Date / Time dicyclomine HCl [From Bentyl] Allergy Unknown Dyspnea Verified 01/04/24 11:13 latex Allergy Unknown Rash/Hives Verified 01/04/24 11:13 Benzoate Analogues Allergy Unknown Verified 01/04/24 11:13 nitrofurantoin Allergy Nausea Verified 01/04/24 11:13 [From Macrobid] Penicillins Allergy "[place] Verified 01/04/24 11:13 funny" adhesive AdvReac Unknown Itching Verified 01/04/24 11:13 ciprofloxacin AdvReac Unknown Nausea Verified 01/04/24 11:13 Macrolide Antibiotics AdvReac Unknown Nausea Verified 01/04/24 11:13 sulfamethoxazole AdvReac Unknown Unknown Verified 01/04/24 11:13 [From Bactrim] trimethoprim [From Bactrim] AdvReac Unknown Unknown Verified 01/04/24 11:13 diphenhydramine AdvReac Confusion Verified 01/04/24 11:13 [From Benadryl] Review of Systems ROS Statement: Those systems with pertinent positive or pertinent negative responses have been documented in the HPI. ROS Other: All systems not noted in ROS Statement are negative. Past Medical History Past Medical History: Asthma, Chest Pain / Angina, COPD, CVA/TIA, Diabetes Mellitus, GERD/Reflux, Hearing Disorder / Deafness, Hyperlipidemia, Hypertension, Liver Disease, Osteoarthritis (OA), Pneumonia, Seizure Disorder, Sleep Apnea/CPAP/BIPAP Additional Past Medical History / Comment(s): states CVA at 35 yrs old, no weakness @ this time. states seizure at 35 yrs old., DDD- back & neck pain., carpal tunnel syndrome. Has [facility] public guardian. History of Any Multi-Drug Resistant Organisms: None Reported Past Surgical History: Heart Catheterization, Orthopedic Surgery Additional Past Surgical History / Comment(s): Cysts removed, left thumb surgery, colonoscopy 08/24/2019. Skin tags removed from both eyes. Past Anesthesia/Blood Transfusion Reactions: Unable to Obtain, Motion Sickness, Postoperative Nausea & Vomiting (PONV) Past Psychological History: Anxiety, Bipolar, Depression, Schizophrenia Smoking Status: Current every day smoker Past Alcohol Use History: None Reported Past Drug Use History: None Reported - Past Family History Brother(s) Family Medical History: Diabetes Mellitus Additional Family Medical History / Comment(s): Patient has 2 brothers. One from complications from diabetes. The second is alive with diabetes. Sister(s) Family Medical History: Cancer Additional Family Medical History / Comment(s): Patient has one sister with breast cancer. Patient does not have any children. Father Family Medical History: Cancer Additional Family Medical History / Comment(s): Father in his 40s or 50s from colon cancer. Mother Family Medical History: Cancer Additional Family Medical History / Comment(s): Mother at age 68 from lung cancer. General Exam - General Exam Comments Initial Comments: GENERAL: Patient is well-developed and well-nourished. Patient is nontoxic and well- hydrated and is in no acute distress. ENT: Neck is soft and supple. No significant lymphadenopathy is noted. Oropharynx is clear. Moist mucous membranes. Neck has full range of motion without eliciting any pain. EYES: The sclera were anicteric and conjunctiva were pink and moist. Extraocular movements were intact and pupils were equal round and reactive to light. Eyelids were unremarkable. PULMONARY: Unlabored respirations. Good breath sounds bilaterally. No audible rales rhonchi or wheezing was noted. CARDIOVASCULAR: There is a regular rate and rhythm without any murmurs gallops or rubs. ABDOMEN: Soft and nontender with normal bowel sounds. SKIN: Skin is clear with no lesions or rashes and otherwise unremarkable. NEUROLOGIC: Patient is alert and oriented x3. Cranial nerves II through XII are grossly intact. Motor and sensory are also intact. Normal speech, volume and content. Symmetrical smile. MUSCULOSKELETAL: Normal extremities with adequate strength and full range of motion. LYMPHATICS: No significant lymphadenopathy is noted PSYCHIATRIC: Normal psychiatric evaluation. Limitations: no limitations Course Vital Signs 01/09/24 13:55 Temperature 98 F Pulse Rate 82 Respiratory 20 Rate Blood Pressure 123/72 O2 Sat by Pulse 98 Oximetry Medical Decision Making - Medical Decision Making Was pt. sent in by a medical professional or institution (SE[facility] [place], BILLIARD PARLOR MANAGER, urgent care, hospital, or half-way...) When possible be specific @ -No Did you speak to anyone other than the patient for history (EMS, parent, family, police, friend...)? What history was obtained from this source @ -No Did you review nursing and triage notes (agree or disagree)? Why? @ -I reviewed and agree with nursing and triage notes Were old charts reviewed (outside hosp., previous admission, EMS record, old EKG, old radiological studies, urgent care reports/EKG's, half-way records)? Report findings @ -No old charts were reviewed Differential Diagnosis? @ -Urinary tract infection, pyelonephritis, urinary retention, STD, this is not an all-inclusive list EKG interpreted by me (3pts min.). @ -As above X-rays interpreted by me (1pt min.). @ -None done CT interpreted by me (1pt min.). @ -None done U/S interpreted by me (1pt. min.). @ -None done What testing was considered but not performed or refused? (CT, X-rays, U/S, labs)? Why? @ -None What meds were considered but not given or refused? Why? @ -None Did you discuss the management of the patient with other professionals (professionals i.e. Dr., PA, BILLIARD PARLOR MANAGER, lab, RT, psych nurse, social services manager, office employee, teacher, first aid officer, comp field case manager)? Give summary @ -No Was smoking cessation discussed for >3mins.? @ -No Was critical care preformed (if so, how long)? @ -No Were there social determinants of health that impacted care today? How? (Homelessness, low income, unemployed, alcoholism, drug addiction, transportation, low edu. Level, literacy, decrease access to med. care, skilled nursing, rehab)? @ -No Was there de-escalation of care discussed even if they declined (Discuss DNR or withdrawal of care, Hospice)? DNR status @ -No What co-morbidities impacted this encounter? (DM, HTN, Smoking, COPD, CAD, Cancer, CVA, ARF, Chemo, Hep., AIDS, mental health diagnosis, sleep apnea, morbid obesity)? @ -None Was patient admitted / discharged? Hospital course, mention meds given and route, prescriptions, significant lab abnormalities, going to OR and other pertinent info. @ -Patient's bladder scan showed 80 mL of urine. Patient's urine did show an infection he was given Rocephin and urine culture was done. Patient be sent home on antibiotics. Undiagnosed new problem with uncertain prognosis? @ -No Drug Therapy requiring intensive monitoring for toxicity (Heparin, Nitro, Insulin, Cardizem)? @ -No Were any procedures done? @ -No Diagnosis/symptom? @ -Urinary tract infection Acute, or Chronic, or Acute on Chronic? @ -Acute Uncomplicated (without systemic symptoms) or Complicated (systemic symptoms)? @ -Uncomplicated Side effects of treatment? @ -No Exacerbation, Progression, or Severe Exacerbation? @ -No Poses a threat to life or bodily function? How? (Chest pain, [place], [place], pneumonia, PE, COPD, DKA, ARF, appy, cholecystitis, CVA, Diverticulitis, Homicidal, Suicidal, threat to staff... and all critical care pts) @ -No - Lab Data Lab Results 01/09/24 Range/Units 14:20 Urine Color Yellow Urine Appearance Cloudy (Clear) Urine pH 6.5 (5.0-8.0) Ur Specific [place] 1.022 (1.001-1.035) Urine Protein Trace H (Negative) Urine Glucose (UA) 3+ H (Negative) Urine Ketones Negative (Negative) Urine Blood Negative (Negative) Urine Nitrite Negative (Negative) Urine Bilirubin Negative (Negative) Urine Urobilinogen 3.0 (<2.0) mg/dL Ur Leukocyte Esterase Moderate H (Negative) Urine RBC 2 (0-5) /hpf Urine WBC 48 H (0-5) /hpf Ur Squamous Epith Cells <1 (0-4) /hpf Urine Bacteria Occasional H (None) /hpf Hyaline Casts 1 (0-2) /lpf Urine Mucus Moderate H (None) /hpf Disposition Clinical Impression: Urinary tract infection Disposition: HOME SELF-CARE Instructions (If sedation given, give patient instructions): Urinary Tract Infection in Men (ED) Prescriptions: Sulfamethox-Tmp 800-160Mg [Bactrim DS 800-160 mg] 1 each PO Q12HR #14 tab Is patient prescribed a controlled substance at d/c from ED?: No Referrals: Ramya Saul MD [Primary Care Provider] - 1-2 days Time of Disposition: 15:10
[2024-01-09 14:36] LABS: Appearance,Urine Cloudy (Clear); Bacteria,Urine Occasional /hpf; Bilirubin,Urine Negative (Negative); Blood,Urine Negative (Negative); Color,Urine Yellow; Glucose,Urine (UA) 3+ (Negative); Hyaline Casts,Urine 1 /lpf (0-2); Ketones,Urine Negative (Negative); Leukocyte Esterase,Urine Moderate (Negative); Mucus,Urine Moderate /hpf; Nitrite,Urine Negative (Negative); PH, Urine 6.5 (5.0-8.0); Protein,Urine Trace (Negative); RBC,Urine 2 /hpf (0-5); Specific Gravity,Urine 1.022 (1.001-1.035); Squamous Epithelial Cell,Urine <1 /hpf (0-4); WBC,Urine 48 /hpf (0-5)
[2024-01-09] MEDS: cefTRIAXone 1,000 MG VIAL (IM USE) IM STA (15:08)
[2024-01-09 15:21] VITALS: BP 113/77; PULSE 59; RESP 16
== END 2024-01-09 15:21 | disposition home or self-care (01) ==
LOC: EC 13:54
DX: N39.0 Urinary tract infection, site not specified (principal); F17.200 Nicotine dependence, unspecified, uncomplicated; Z88.0 Allergy status to penicillin; Z88.2 Allergy status to sulfonamides; Z91.040 Latex allergy status; Z88.1 Allergy status to other antibiotic agents; Z88.8 Allergy status to other drugs, medicaments and biological substances
CPT/HCPCS: 51798; 81001; 87086; 99284; 96372; J0696

== ENCOUNTER 2024-01-11 20:41 | Emergency (ER) | payer MEDICARE, OTHER ==
[2024-01-11 21:00] VITALS: BP 129/78; PULSE 75; RESP 18; TEMP 98.7
--- NOTE | 2024-01-11 22:01 | ED ---
Recheck HPI - General Chief Complaint: Nausea/Vomiting/Diarrhea Stated Complaint: Weakness Source: patient, RN notes reviewed, old records reviewed Mode of arrival: ambulatory Limitations: no limitations - History of Present Illness Initial Comments: This is a 53-year-old male well-known to this emergency department, presents today for evaluation of multiple nonspecific complaints, patient does change his complaint when each complaint is rebuffed MD Complaint: other Initial Visit For: other Returns Today for: other Context: other Associated Symptoms: other Treatments Prior to Arrival: other - Related Data Home Medications Medication Instructions Recorded Confirmed Nitroglycerin Sl Tabs [Nitrostat] 0.4 mg SL Q5M PRN 08/20/23 12/21/23 metFORMIN HCL 1,000 mg PO BID 10/06/23 12/21/23 Ibuprofen [Motrin] 800 mg PO Q8H PRN 12/06/23 12/21/23 Insulin Glargine,Hum.rec.anlog 10 units SQ HS 12/06/23 12/21/23 [Lantus Solostar Pen] Ondansetron Odt [Zofran ODT] 4 mg PO BID PRN 12/06/23 12/21/23 glipiZIDE [Glucotrol] 5 mg PO AC-BID 12/21/23 12/21/23 Previous Rx's Medication Instructions Recorded ARIPiprazole [Abilify] 15 mg PO DAILY 30 Days #30 tab 12/13/23 Albuterol Nebulized [Ventolin 2.5 mg INHALATION RT-Q6H PRN #1 ml 12/13/23 Nebulized] Aspirin EC [Ecotrin Low Dose] 81 mg PO DAILY 30 Days #30 tab 12/13/23 Atorvastatin [Lipitor] 10 mg PO HS 30 Days #30 tab 12/13/23 Budesonide-Formot 160-4.5 Mcg 2 puff INHALATION RT-BID 30 Days 12/13/23 [Symbicort 160-4.5 Mcg Inhaler] #1 each Cholecalciferol (Vitamin D3) 50 mcg PO DAILY 30 Days #30 tab 12/13/23 [Vitamin D3 (50 Mcg = 2000 Iu)] Esomeprazole Magnesium [NexIUM] 40 mg PO DAILY 30 Days #30 cap 12/13/23 Famotidine [Pepcid] 20 mg PO BID PRN 30 Days #60 tab 12/13/23 Ipratropium-Albuterol Nebulize 3 ml INHALATION RT-QID PRN 30 Days 12/13/23 [Duoneb 0.5 mg-3 mg/3 ml Soln] #1 each Melatonin 5 mg PO HS 30 Days #30 tab 12/13/23 Mirtazapine [Remeron] 15 mg PO HS 30 Days #30 tab 12/13/23 Montelukast [Singulair] 10 mg PO HS 30 Days #30 tab 12/13/23 Nicotine 14Mg/24Hr Patch [Habitrol] 1 patch TRANSDERM DAILY 14 Days 12/13/23 #14 patch Sertraline [Zoloft] 100 mg PO HS 30 Days #30 tab 12/13/23 hydrOXYzine pamoate [Vistaril] 25 mg PO DAILY PRN 30 Days #30 cap 12/13/23 lisinopriL [Zestril] 2.5 mg PO DAILY 30 Days #30 tab 12/13/23 Docusate [Colace] 100 mg PO BID PRN 3 Days #6 capsule 12/22/23 Famotidine [Pepcid] 20 mg PO BID PRN #40 tab 12/22/23 Lidocaine 4% Patch 1 patch TOPICAL DAILY #3 patch 12/22/23 Nicotine Gum (Polacrilex) 2 mg BUCCAL Q8HR PRN 3 Days #6 12/22/23 [Nicorette] pieceofgum Ondansetron Odt [Zofran Odt] 4 mg PO Q8HR PRN #10 tab 01/04/24 Sulfamethox-Tmp 800-160Mg [Bactrim 1 each PO Q12HR #14 tab 01/09/24 DS 800-160 mg] Nitrofurantoin Monohyd/M-Cryst 100 mg PO Q12HR #14 cap 01/13/24 [Macrobid] Nitrofurantoin Monohyd/M-Cryst 100 mg PO Q12HR #10 cap 01/17/24 [Macrobid] Allergies Allergy/AdvReac Type Severity Reaction Status Date / Time dicyclomine HCl [From Bentyl] Allergy Unknown Dyspnea Verified 01/17/24 00:41 latex Allergy Unknown Rash/Hives Verified 01/17/24 00:41 Benzoate Analogues Allergy Unknown Verified 01/17/24 00:41 nitrofurantoin Allergy Nausea Verified 01/17/24 00:41 [From Macrobid] Penicillins Allergy "[place] Verified 01/17/24 00:41 funny" adhesive AdvReac Unknown Itching Verified 01/17/24 00:41 ciprofloxacin AdvReac Unknown Nausea Verified 01/17/24 00:41 Macrolide Antibiotics AdvReac Unknown Nausea Verified 01/17/24 00:41 sulfamethoxazole AdvReac Unknown Unknown Verified 01/17/24 00:41 [From Bactrim] trimethoprim [From Bactrim] AdvReac Unknown Unknown Verified 01/17/24 00:41 diphenhydramine AdvReac Confusion Verified 01/17/24 00:41 [From Benadryl] Review of Systems ROS Statement: Those systems with pertinent positive or pertinent negative responses have been documented in the HPI. ROS Other: All systems not noted in ROS Statement are negative. Past Medical History Past Medical History: Asthma, Chest Pain / Angina, COPD, CVA/TIA, Diabetes Mellitus, GERD/Reflux, Hearing Disorder / Deafness, Hyperlipidemia, Hypertension, Liver Disease, Osteoarthritis (OA), Pneumonia, Seizure Disorder, Sleep Apnea/CPAP/BIPAP Additional Past Medical History / Comment(s): states CVA at 35 yrs old, no weakness @ this time. states seizure at 35 yrs old., DDD- back & neck pain., carpal tunnel syndrome. Has [facility] public guardian. History of Any Multi-Drug Resistant Organisms: None Reported Past Surgical History: Heart Catheterization, Orthopedic Surgery Additional Past Surgical History / Comment(s): Cysts removed, left thumb surgery, colonoscopy 08/24/2019. Skin tags removed from both eyes. Past Anesthesia/Blood Transfusion Reactions: Unable to Obtain, Motion Sickness, Postoperative Nausea & Vomiting (PONV) Past Psychological History: Anxiety, Bipolar, Depression, Schizophrenia Smoking Status: Current every day smoker Past Alcohol Use History: None Reported Past Drug Use History: None Reported - Past Family History Brother(s) Family Medical History: Diabetes Mellitus Additional Family Medical History / Comment(s): Patient has 2 brothers. One from complications from diabetes. The second is alive with diabetes. Sister(s) Family Medical History: Cancer Additional Family Medical History / Comment(s): Patient has one sister with breast cancer. Patient does not have any children. Father Family Medical History: Cancer Additional Family Medical History / Comment(s): Father in his 40s or 50s from colon cancer. Mother Family Medical History: Cancer Additional Family Medical History / Comment(s): Mother at age 68 from lung cancer. General Exam Limitations: no limitations General appearance: alert, in no apparent distress Head exam: Present: atraumatic, normocephalic, normal inspection Eye exam: Present: normal appearance, PERRL, EOMI. Absent: scleral icterus, conjunctival injection, periorbital swelling ENT exam: Present: normal exam, mucous membranes moist Neck exam: Present: normal inspection. Absent: tenderness, meningismus, lymphadenopathy Respiratory exam: Present: normal lung sounds bilaterally. Absent: respiratory distress, wheezes, rales, rhonchi, stridor Cardiovascular Exam: Present: regular rate, normal rhythm, normal heart sounds. Absent: systolic murmur, diastolic murmur, rubs, gallop, clicks GI/Abdominal exam: Present: soft, normal bowel sounds. Absent: distended, tenderness, guarding, rebound, rigid Extremities exam: Present: normal inspection, full ROM, normal capillary refill. Absent: tenderness, pedal edema, joint swelling, calf tenderness Back exam: Present: normal inspection Neurological exam: Present: alert, oriented X3, CN II-XII intact Psychiatric exam: Present: normal affect, normal mood Skin exam: Present: warm, dry, intact, normal color. Absent: rash Course Vital Signs 01/11/24 20:57 Temperature 98.7 F Pulse Rate 75 Respiratory 18 Rate Blood Pressure 129/78 O2 Sat by Pulse 97 Oximetry - Reevaluation(s) Reevaluation #1: Medical records reviewed Reevaluation #2: Patient symptoms improved Reevaluation #3: Patient informed of results and questions answered Reevaluation #4: Was pt. sent in by a medical professional or institution (, PA, AUDIT MGR, urgent care, hospital, or detention...) When possible be specific @ -no Did you speak to anyone other than the patient for history (EMS, parent, family, police, friend...)? What history was obtained from this source @ -no Did you review nursing and triage notes (agree or disagree)? Why? @ -agree Are old charts reviewed (outside hosp., previous admission, EMS record, old EKG, old radiological studies, urgent care reports/EKG's, detention records)? Report findings @ -yes Differential Diagnosis (chest pain, altered mental status, abdominal pain women, abdominal pain men, vaginal bleeding, weakness, fever, dyspnea, syncope, headache, dizziness, GI bleed, back pain, seizure, CVA, palpatations, mental health, musculoskeletal)? @ -prior EKG interpreted by me (3pts min.). @ -no X-rays interpreted by me (1pt min.). @ -no CT interpreted by me (1pt min.). @ -no U/S interpreted by me (1pt. min.). @ -no What testing was considered but not performed or refused? (CT, X-rays, U/S, labs)? Why? @ -none What meds were considered but not given or refused? Why? @ -none Did you discuss the management of the patient with other professionals (professionals i.e. , PA, AUDIT MGR, lab, RT, psych nurse, social work faculty member, index editor, teacher, public relations officer, case management manager)? Give summary @ -no Was smoking cessation discussed for >3mins.? @ -no Was critical care preformed (if so, how long)? @ -no Were there social determinants of health that impacted care today? How? (Homelessness, low income, unemployed, alcoholism, drug addiction, transportation, low edu. Level, literacy, decrease access to med. care, care home, rehab)? @ -none Was there de-escalation of care discussed even if they declined (Discuss DNR or withdrawal of care, Hospice)? DNR status @ -no What co-morbidities impacted this encounter? (DM, HTN, Smoking, COPD, CAD, Cancer, CVA, ARF, Chemo, Hep., AIDS, mental health diagnosis, sleep apnea, morbid obesity)? @ -none Was patient admitted / discharged? Hospital course, mention meds given and route, prescriptions, significant lab abnormalities, going to OR and other pertinent info. @ - 53 male for reevaluation of multiple ER visits this month and recent, patient will be discharged home Discharge Undiagnosed new problem with uncertain prognosis? @ -no Drug Therapy requiring intensive monitoring for toxicity (Heparin, Nitro, Insulin, Cardizem)? @ -no Were any procedures done? @ -no Diagnosis/symptom? @ -Normal exam Acute, or Chronic, or Acute on Chronic? @ -Acute Uncomplicated (without systemic symptoms) or Complicated (systemic symptoms)? @ -Complicated Side effects of treatment? @ -no Exacerbation, Progression, or Severe Exacerbation? @ -exacerbation Poses a threat to life or bodily function? How? (Chest pain, [place], [place], pneumonia, PE, COPD, DKA, ARF, appy, cholecystitis, CVA, Diverticulitis, Homicidal, Suicidal, threat to staff... and all critical care pts) @ -yes Reevaluation #5: Differential Weakness: Hypoglycemia, shock, sepsis, hyponatremia, anemia, infection, [place], ETOH, adverse medicine reaction, overdose, stroke, this is not meant to be an all-inclusive list. Medical Decision Making - Medical Decision Making 53 male for reevaluation of multiple ER visits this month and recent, patient will be discharged home Disposition Clinical Impression: Nausea & vomiting Disposition: HOME SELF-CARE Condition: Fair Instructions (If sedation given, give patient instructions): Acute Nausea and Vomiting (ED) Prescriptions: Nitrofurantoin Monohyd/M-Cryst [Macrobid] 100 mg PO Q12HR #14 cap Is patient prescribed a controlled substance at d/c from ED?: No Referrals: Ramya Saul MD [Primary Care Provider] - 1-2 days Time of Disposition: 22:00
== END 2024-01-11 22:25 | disposition home or self-care (01) ==
LOC: EC 20:41
DX: R11.2 Nausea with vomiting, unspecified (principal); F17.200 Nicotine dependence, unspecified, uncomplicated; Z88.0 Allergy status to penicillin; Z88.1 Allergy status to other antibiotic agents; Z88.2 Allergy status to sulfonamides; Z88.8 Allergy status to other drugs, medicaments and biological substances; Z91.040 Latex allergy status; Z86.73 Personal history of transient ischemic attack (TIA), and cerebral infarction without residual deficits
CPT/HCPCS: 99284

== ENCOUNTER 2024-01-15 16:15 | Emergency (ER) | payer OTHER, MEDICARE ==
[2024-01-15 16:21] VITALS: TEMP 97.8
[2024-01-15] MEDS: ASPIRIN 81 MG PO STA (16:25)
--- NOTE | 2024-01-15 16:26 | ED ---
General Adult HPI - General Chief complaint: Dizziness Stated complaint: Chest pain Time Seen by Provider: 01/15/24 16:17 Source: patient, RN/MD, EMS, RN notes reviewed, old records reviewed Mode of arrival: EMS Limitations: no limitations - History of Present Illness Initial comments: Patient is a 53-year-old male presenting to the emergency department with concerns with chest discomfort. Patient has chronic chest discomfort, daily, similar to this. Patient occasionally has shortness of breath however is still smoking and attribute his to that. No nausea or vomiting. No diaphoresis. Patient was just discharged from [facility] yesterday. Patient states he does go there sometimes for his chest discomfort as well. Patient sta rolanda his tests all looked good while he was there and was diagnosed with chest pain. Patient again is not happy with his living situation and feels that this has a part to do with his symptoms. Chest discomfort is somewhat sharp and chronic and on the right side. Patient request Toradol as this usually helps his discomfort. - Related Data Home Medications Medication Instructions Recorded Confirmed Nitroglycerin Sl Tabs [Nitrostat] 0.4 mg SL Q5M PRN 08/20/23 12/21/23 metFORMIN HCL 1,000 mg PO BID 10/06/23 12/21/23 Ibuprofen [Motrin] 800 mg PO Q8H PRN 12/06/23 12/21/23 Insulin Glargine,Hum.rec.anlog 10 units SQ HS 12/06/23 12/21/23 [Lantus Solostar Pen] Ondansetron Odt [Zofran ODT] 4 mg PO BID PRN 12/06/23 12/21/23 glipiZIDE [Glucotrol] 5 mg PO AC-BID 12/21/23 12/21/23 Previous Rx's Medication Instructions Recorded ARIPiprazole [Abilify] 15 mg PO DAILY 30 Days #30 tab 12/13/23 Albuterol Nebulized [Ventolin 2.5 mg INHALATION RT-Q6H PRN #1 ml 12/13/23 Nebulized] Aspirin EC [Ecotrin Low Dose] 81 mg PO DAILY 30 Days #30 tab 12/13/23 Atorvastatin [Lipitor] 10 mg PO HS 30 Days #30 tab 12/13/23 Budesonide-Formot 160-4.5 Mcg 2 puff INHALATION RT-BID 30 Days 12/13/23 [Symbicort 160-4.5 Mcg Inhaler] #1 each Cholecalciferol (Vitamin D3) 50 mcg PO DAILY 30 Days #30 tab 12/13/23 [Vitamin D3 (50 Mcg = 2000 Iu)] Esomeprazole Magnesium [NexIUM] 40 mg PO DAILY 30 Days #30 cap 12/13/23 Famotidine [Pepcid] 20 mg PO BID PRN 30 Days #60 tab 12/13/23 Ipratropium-Albuterol Nebulize 3 ml INHALATION RT-QID PRN 30 Days 12/13/23 [Duoneb 0.5 mg-3 mg/3 ml Soln] #1 each Melatonin 5 mg PO HS 30 Days #30 tab 12/13/23 Mirtazapine [Remeron] 15 mg PO HS 30 Days #30 tab 12/13/23 Montelukast [Singulair] 10 mg PO HS 30 Days #30 tab 12/13/23 Nicotine 14Mg/24Hr Patch [Habitrol] 1 patch TRANSDERM DAILY 14 Days 12/13/23 #14 patch Sertraline [Zoloft] 100 mg PO HS 30 Days #30 tab 12/13/23 hydrOXYzine pamoate [Vistaril] 25 mg PO DAILY PRN 30 Days #30 cap 12/13/23 lisinopriL [Zestril] 2.5 mg PO DAILY 30 Days #30 tab 12/13/23 Docusate [Colace] 100 mg PO BID PRN 3 Days #6 capsule 12/22/23 Famotidine [Pepcid] 20 mg PO BID PRN #40 tab 12/22/23 Lidocaine 4% Patch 1 patch TOPICAL DAILY #3 patch 12/22/23 Nicotine Gum (Polacrilex) 2 mg BUCCAL Q8HR PRN 3 Days #6 12/22/23 [Nicorette] pieceofgum Ondansetron Odt [Zofran Odt] 4 mg PO Q8HR PRN #10 tab 01/04/24 Sulfamethox-Tmp 800-160Mg [Bactrim 1 each PO Q12HR #14 tab 01/09/24 DS 800-160 mg] Nitrofurantoin Monohyd/M-Cryst 100 mg PO Q12HR #14 cap 01/13/24 [Macrobid] Allergies Allergy/AdvReac Type Severity Reaction Status Date / Time dicyclomine HCl [From Bentyl] Allergy Unknown Dyspnea Verified 01/15/24 16:21 latex Allergy Unknown Rash/Hives Verified 01/15/24 16:21 Benzoate Analogues Allergy Unknown Verified 01/15/24 16:21 nitrofurantoin Allergy Nausea Verified 01/15/24 16:21 [From Macrobid] Penicillins Allergy "[place] Verified 01/15/24 16:21 funny" adhesive AdvReac Unknown Itching Verified 01/15/24 16:21 ciprofloxacin AdvReac Unknown Nausea Verified 01/15/24 16:21 Macrolide Antibiotics AdvReac Unknown Nausea Verified 01/15/24 16:21 sulfamethoxazole AdvReac Unknown Unknown Verified 01/15/24 16:21 [From Bactrim] trimethoprim [From Bactrim] AdvReac Unknown Unknown Verified 01/15/24 16:21 diphenhydramine AdvReac Confusion Verified 01/15/24 16:21 [From Benadryl] Review of Systems ROS Statement: Those systems with pertinent positive or pertinent negative responses have been documented in the HPI. ROS Other: All systems not noted in ROS Statement are negative. Constitutional: Denies: fever Eyes: Denies: eye pain ENT: Denies: ear pain Respiratory: Reports: as per HPI Cardiovascular: Reports: as per HPI, chest pain Endocrine: Denies: fatigue Gastrointestinal: Denies: abdominal pain Genitourinary: Denies: dysuria Musculoskeletal: Denies: back pain Skin: Denies: rash Neurological: Denies: weakness Past Medical History Past Medical History: Asthma, Chest Pain / Angina, COPD, CVA/TIA, Diabetes Mellitus, GERD/Reflux, Hearing Disorder / Deafness, Hyperlipidemia, Hypertension, Liver Disease, Osteoarthritis (OA), Pneumonia, Seizure Disorder, Sleep Apnea/CPAP/BIPAP Additional Past Medical History / Comment(s): states CVA at 35 yrs old, no weakness @ this time. states seizure at 35 yrs old., DDD- back & neck pain., carpal tunnel syndrome. Has [facility] public guardian. History of Any Multi-Drug Resistant Organisms: None Reported Past Surgical History: Heart Catheterization, Orthopedic Surgery Additional Past Surgical History / Comment(s): Cysts removed, left thumb surgery, colonoscopy 08/24/2019. Skin tags removed from both eyes. Past Anesthesia/Blood Transfusion Reactions: Unable to Obtain, Motion Sickness, Postoperative Nausea & Vomiting (PONV) Past Psychological History: Anxiety, Bipolar, Depression, Schizophrenia Smoking Status: Current every day smoker Past Alcohol Use History: None Reported Past Drug Use History: None Reported - Past Family History Brother(s) Family Medical History: Diabetes Mellitus Additional Family Medical History / Comment(s): Patient has 2 brothers. One from complications from diabetes. The second is alive with diabetes. Sister(s) Family Medical History: Cancer Additional Family Medical History / Comment(s): Patient has one sister with breast cancer. Patient does not have any children. Father Family Medical History: Cancer Additional Family Medical History / Comment(s): Father in his 40s or 50s from colon cancer. Mother Family Medical History: Cancer Additional Family Medical History / Comment(s): Mother at age 68 from lung cancer. General Exam Limitations: no limitations General appearance: alert, in no apparent distress Head exam: Present: normocephalic Eye exam: Present: normal appearance Neck exam: Present: normal inspection Respiratory exam: Present: normal lung sounds bilaterally Cardiovascular Exam: Present: regular rate, normal rhythm, normal heart sounds Expanded Peripheral pulses: 2+: Radial (R), Radial (L), Posterior Tibialis (R), Posterior Tibialis (L) GI/Abdominal exam: Present: soft, normal bowel sounds. Absent: distended, t enderness, guarding, rebound, rigid, pulsatile mass Extremities exam: Present: normal inspection. Absent: pedal edema, calf tenderness Neurological exam: Present: alert Psychiatric exam: Present: normal affect, normal mood Skin exam: Present: normal color Course Vital Signs 01/15/24 01/15/24 01/15/24 16:17 17:00 18:06 Temperature 97.8 F Pulse Rate 74 61 59 L Respiratory 18 18 16 Rate Blood Pressure 118/82 125/78 124/81 O2 Sat by Pulse 99 96 97 Oximetry EKG Findings - EKG Results: EKG: interpreted by ERMD (Left axis.), sinus rhythm, normal QRS, normal ST/T Medical Decision Making - Medical Decision Making I discussed smoking cessation for greater than 3 minutes. The risk of smoking were discussed with the patient including but not limited to risks of cancer, stroke, coronary artery disease and COPD. Also discussed with patient were multiple methods of quitting smoking. Lastly we discussed the financial cost of smoking. Was pt. sent in by a medical professional or institution (, SEAN, FAT PRESSROOM WORKER, urgent care, hospital, or snf...) When possible be specific @ -No Did you speak to anyone other than the patient for history (EMS, parent, family, police, friend...)? What history was obtained from this source @ -No Did you review nursing and triage notes (agree or disagree)? Why? @ -I reviewed and agree with nursing and triage notes Were old charts reviewed (outside hosp., previous admission, EMS record, old EKG, old radiological studies, urgent care reports/EKG's, snf records)? Report findings @ -Multiple previous charts EKGs x-rays and CT reports and admissions reviewed Differential Diagnosis (chest pain, altered mental status, abdominal pain women, abdominal pain men, vaginal bleeding, weakness, fever, dyspnea, syncope, headache, dizziness, GI bleed, back pain, seizure, CVA, palpatations, mental health, musculoskeletal)? @ -MDM differential chest differential Chest Pain: Stable Angina, Unstable Angina, STEMI, NSTEMI Aortic Dissection, Pneumothorax, Musculoskeletal, Esophageal Spasm GERD, Cholecystitis, Pancreatitis, Zoster, this is not meant to be an all-inclusive list. EKG interpreted by me (3pts min.). @ -As above X-rays interpreted by me (1pt min.). @ -Chest x-ray shows no acute process CT interpreted by me (1pt min.). @ -CT scan of the chest shows no acute process U/S interpreted by me (1pt. min.). @ -None done What testing was considered but not performed or refused? (CT, X-rays, U/S, labs)? Why? @ -None What meds were considered but not given or refused? Why? @ -None Did you discuss the management of the patient with other professionals (professionals i.e. , SEAN, FAT PRESSROOM WORKER, lab, RT, psych nurse, social work manager, executive vice president, teacher, forward air controller/air officer, lead case manager)? Give summary @ -No Was smoking cessation discussed for >3mins.? @ -No Was critical care preformed (if so, how long)? @ -No Were there social determinants of health that impacted care today? How? (Homelessness, low income, unemployed, alcoholism, drug addiction, transpo rtation, low edu. Level, literacy, decrease access to med. care, mcc, rehab)? @ -No Was there de-escalation of care discussed even if they declined (Discuss DNR or withdrawal of care, Hospice)? DNR status @ -No What co-morbidities impacted this encounter? (DM, HTN, Smoking, COPD, CAD, Cancer, CVA, ARF, Chemo, Hep., AIDS, mental health diagnosis, sleep apnea, morbid obesity)? @ -None Was patient admitted / discharged? Hospital course, mention meds given and route, prescriptions, significant lab abnormalities, going to OR and other pertinent info. @ -Patient presents with chronic chest discomfort that is similar to previous. Upon reevaluation patient is updated and resting comfortably in bed. Patient states nothing ever helps for his chest discomfort. Patient later requests a change in his housing. Patient admits that he is here because he wants his housing to be changed. Patient is updated that we are not to do that and that he should have a discussion with his guardian. Undiagnosed new problem with uncertain prognosis? @ -No Drug Therapy requiring intensive monitoring for toxicity (Heparin, Nitro, Insulin, Cardizem)? @ -No Were any procedures done? @ -No Diagnosis/symptom? @ -Chest pain Acute, or Chronic, or Acute on Chronic? @ -Acute on chronic Uncomplicated (without systemic symptoms) or Complicated (systemic symptoms)? @ -Default Side effects of treatment? @ -No Exacerbation, Progression, or Severe Exacerbation? @ -No Poses a threat to life or bodily function? How? (Chest pain, [place], [place], pneumonia, PE, COPD, DKA, ARF, appy, cholecystitis, CVA, Diverticulitis, Homicidal, Suicidal, threat to staff... and all critical care pts) @ -No - Lab Data Result diagrams: 01/15/24 16:26 01/15/24 16:26 Lab Results 01/15/24 01/15/24 01/15/24 Range/Units 16:26 16:26 16:26 WBC 6.4 (3.8-10.6) k/uL RBC 4.78 (4.30-5.90) m/uL Hgb 14.8 (13.0-17.5) gm/dL Hct 42.7 (39.0-53.0) % MCV 89.4 (80.0-100.0) fL MCH 31.0 (25.0-35.0) pg MCHC 34.7 (31.0-37.0) g/dL RDW 13.4 (11.5-15.5) % Plt Count 213 (150-450) k/uL MPV 6.8 Neutrophils % 68 % Lymphocytes % 20 % Monocytes % 6 % Eosinophils % 5 % Basophils % 0 % Neutrophils # 4.3 (1.3-7.7) k/uL Lymphocytes # 1.3 (1.0-4.8) k/uL Monocytes # 0.4 (0-1.0) k/uL Eosinophils # 0.3 (0-0.7) k/uL Basophils # 0.0 (0-0.2) k/uL PT 9.6 L (10.0-12.5) sec INR 0.8 (<1.2) APTT 20.8 L (22.0-30.0) sec D-Dimer 0.76 H (<0.60) mg/L FEU Sodium 140 (137-145) mmol/L Potassium 3.8 (3.5-5.1) mmol/L Chloride 110 H (98-107) mmol/L Carbon Dioxide 23 (22-30) mmol/L Anion Gap 7 mmol/L BUN 10 (9-20) mg/dL Creatinine 0.62 L (0.66-1.25) mg/dL Est GFR (CKD-EPI)AfAm >90 (>60 ml/min/1.73 sqM) Est GFR (CKD-EPI)NonAf >90 (>60 ml/min/1.73 sqM) Glucose 133 H (74-99) mg/dL Calcium 9.6 (8.4-10.2) mg/dL Magnesium 1.7 (1.6-2.3) mg/dL Total Bilirubin 0.4 (0.2-1.3) mg/dL AST 30 (17-59) U/L ALT 44 (4-49) U/L Alkaline Phosphatase 80 (38-126) U/L Troponin I (0.000-0.034) ng/mL Total Protein 6.1 L (6.3-8.2) g/dL Albumin 4.1 (3.5-5.0) g/dL 01/15/24 Range/Units 16:26 WBC (3.8-10.6) k/uL RBC (4.30-5.90) m/uL Hgb (13.0-17.5) gm/dL Hct (39.0-53.0) % MCV (80.0-100.0) fL MCH (25.0-35.0) pg MCHC (31.0-37.0) g/dL RDW (11.5-15.5) % Plt Count (150-450) k/uL MPV Neutrophils % % Lymphocytes % % Monocytes % % Eosinophils % % Basophils % % Neutrophils # (1.3-7.7) k/uL Lymphocytes # (1.0-4.8) k/uL Monocytes # (0-1.0) k/uL Eosinophils # (0-0.7) k/uL Basophils # (0-0.2) k/uL PT (10.0-12.5) sec INR (<1.2) APTT (22.0-30.0) sec D-Dimer (<0.60) mg/L FEU Sodium (137-145) mmol/L Potassium (3.5-5.1) mmol/L Chloride (98-107) mmol/L Carbon Dioxide (22-30) mmol/L Anion Gap mmol/L BUN (9-20) mg/dL Creatinine (0.66-1.25) mg/dL Est GFR (CKD-EPI)AfAm (>60 ml/min/1.73 sqM) Est GFR (CKD-EPI)NonAf (>60 ml/min/1.73 sqM) Glucose (74-99) mg/dL Calcium (8.4-10.2) mg/dL Magnesium (1.6-2.3) mg/dL Total Bilirubin (0.2-1.3) mg/dL AST (17-59) U/L ALT (4-49) U/L Alkaline Phosphatase (38-126) U/L Troponin I <0.012 (0.000-0.034) ng/mL Total Protein (6.3-8.2) g/dL Albumin (3.5-5.0) g/dL Disposition Clinical Impression: Chest pain Disposition: HOME SELF-CARE Condition: Stable Instructions (If sedation given, give patient instructions): Chest Pain (ED) Additional Instructions: Please have a discussion with your guardian regarding your housing situation. Please do follow-up with your primary care physician Wednesday. Return for worsening or changing symptoms or any other concerns. Is patient prescribed a controlled substance at d/c from ED?: No Referrals: Ramya Saul MD [Primary Care Provider] - 1-2 days Time of Disposition: 18:16
[2024-01-15] MEDS: KETOROLAC 15 MG/ML 1 ML VIAL IVP STA (16:27)
[2024-01-15 16:40] LABS: Basophils % (A) 0 %; Eosinophils # (A) 0.3 k/uL (0-0.7); Eosinophils % (A) 5 %; HCT 42.7 % (39.0-53.0); HGB 14.8 gm/dL (13.0-17.5); Lymphocytes # (A) 1.3 k/uL (1.0-4.8); Lymphocytes % (A) 20 %; MCHC 34.7 g/dL (31.0-37.0); MCV 89.4 fL (80.0-100.0); Mean Platelet Volume 6.8; Monocytes # (A) 0.4 k/uL (0-1.0); Monocytes % (A) 6 %; Neutrophils # (A) 4.3 k/uL (1.3-7.7); Neutrophils % (A) 68 %; Platelet Count 213 k/uL (150-450); RBC 4.78 m/uL (4.30-5.90); RDW 13.4 % (11.5-15.5); WBC 6.4 k/uL (3.8-10.6)
[2024-01-15 16:54] LABS: ALT 44 U/L (4-49); AST 30 U/L (17-59); African American GFR (CKD) >90 (>60 ml/min/1.73 sqM); Albumin 4.1 g/dL (3.5-5.0); Alkaline Phosphatase 80 U/L (38-126); Anion Gap 7 mmol/L; Blood Urea Nitrogen 10 mg/dL (9-20); Calcium 9.6 mg/dL (8.4-10.2); Carbon Dioxide 23 mmol/L (22-30); Chloride 110 mmol/L (98-107); Glucose 133 mg/dL (74-99); Magnesium 1.7 mg/dL (1.6-2.3); Non-African American GFR(CKD) >90 (>60 ml/min/1.73 sqM); Potassium 3.8 mmol/L (3.5-5.1); Sodium 140 mmol/L (137-145); Total Bilirubin 0.4 mg/dL (0.2-1.3); Total Protein 6.1 g/dL (6.3-8.2)
[2024-01-15 17:03] LABS: INR 0.8 (<1.2); Prothrombin Time 9.6 sec (10.0-12.5)
--- NOTE | 2024-01-15 17:07 | XR ---
EXAMINATION TYPE: XR chest 2V DATE OF EXAM: 01/15/2024 4:36 PM CLINICAL INDICATION:Male, 53 years old with history of Chest Pain; [facility] COMPARISON: None TECHNIQUE: XR chest 2V Frontal view of the chest. FINDINGS: Lungs/Pleura: There is no evidence of pleural effusion, focal consolidation, or pneumothorax. Pulmonary vascularity: Unremarkable. Heart/mediastinum: Cardiomediastinal silhouette is unremarkable. Musculoskeletal: No acute osseous pathology. IMPRESSION: No acute cardiopulmonary disease/process.
[2024-01-15 17:12] LABS: Partial Thromboplastin Time 20.8 sec (22.0-30.0)
--- NOTE | 2024-01-15 17:47 | CT ---
EXAMINATION TYPE: CT angio chest CT DLP: 356..5 mGycm, Automated exposure control for dose reduction was used. DATE OF EXAM: 01/15/2024 5:33 PM COMPARISON: 08/27/2023. CLINICAL INDICATION:Male, 53 years old with history of cp; positive dimer TECHNIQUE/CONTRAST: CTA scan of the thorax is performed with IV Contrast, patient injected with 80 mL of Isovue 370, MIP images are created and reviewed these are created on a separate workstation.. FINDINGS: Pulmonary Artery: There is no evidence for a filling defect within the pulmonary vasculature to sugge st acute pulmonary embolism. The pulmonary artery is of normal size. Lungs/Pleura: No evidence of focal consolidation, pleural effusion or pneumothorax. Airway: Large airways are patent. Heart: Heart is within normal limits for size. Vasculature: No evidence of aortic aneurysm. Mediastinum: No gross evidence of adenopathy. Musculoskeletal: No acute osseous abnormalities Soft Tissues/lymph nodes: Unremarkable. Lower neck: No significant findings. Upper Abdomen peripherally calcified probable splenic pseudocyst measuring up to 58 mm. IMPRESSION: 1. No evidence of pulmonary embolism. 2. No evidence for airspace consolidation or acute thoracic process. 3. Peripherally calcified cyst in the spleen possibly representing sequela prior trauma in the settin g of cirrhosis.
[2024-01-15 18:33] VITALS: BP 143/83; PULSE 58; RESP 19
== END 2024-01-15 18:34 | disposition home or self-care (01) ==
LOC: EC 16:15
DX: G89.29 Other chronic pain (principal); R07.89 Other chest pain; F17.200 Nicotine dependence, unspecified, uncomplicated; Z88.0 Allergy status to penicillin; Z91.09 Other allergy status, other than to drugs and biological substances; Z88.1 Allergy status to other antibiotic agents; Z88.2 Allergy status to sulfonamides; Z88.8 Allergy status to other drugs, medicaments and biological substances; Z91.040 Latex allergy status; Z86.73 Personal history of transient ischemic attack (TIA), and cerebral infarction without residual deficits
CPT/HCPCS: 36415; 93005; 85379; 80053; 83735; 84484; 85025; 85610; 85730; 71046; 71275; 99406; 99285; 96374; J1885; Q9967

== ENCOUNTER 2024-01-16 00:19 | Emergency (ER) | payer MEDICARE, OTHER ==
[2024-01-16 00:36] VITALS: TEMP 98.1
[2024-01-16 00:37] LABS: Glucose,Whole Blood 290 mg/dL (70-110)
--- NOTE | 2024-01-16 00:40 | ED ---
Recheck HPI - General Chief Complaint: Recheck/Abnormal Lab/Rx Stated Complaint: Hyperglycemia, Hypertension Time Seen by Provider: 01/16/24 00:31 Source: patient, RN notes reviewed, old records reviewed Mode of arrival: ambulatory Limitations: no limitations - History of Present Illness Initial Comments: 53 male refusing evaluation here in the emergency department, multiple calls for elevated blood sugar here current symptoms, patient does states he does not like where he lives - Related Data Home Medications Medication Instructions Recorded Confirmed Nitroglycerin Sl Tabs [Nitrostat] 0.4 mg SL Q5M PRN 08/20/23 12/21/23 metFORMIN HCL 1,000 mg PO BID 10/06/23 12/21/23 Ibuprofen [Motrin] 800 mg PO Q8H PRN 12/06/23 12/21/23 Insulin Glargine,Hum.rec.anlog 10 units SQ HS 12/06/23 12/21/23 [Lantus Solostar Pen] Ondansetron Odt [Zofran ODT] 4 mg PO BID PRN 12/06/23 12/21/23 glipiZIDE [Glucotrol] 5 mg PO AC-BID 12/21/23 12/21/23 Previous Rx's Medication Instructions Recorded ARIPiprazole [Abilify] 15 mg PO DAILY 30 Days #30 tab 12/13/23 Albuterol Nebulized [Ventolin 2.5 mg INHALATION RT-Q6H PRN #1 ml 12/13/23 Nebulized] Aspirin EC [Ecotrin Low Dose] 81 mg PO DAILY 30 Days #30 tab 12/13/23 Atorvastatin [Lipitor] 10 mg PO HS 30 Days #30 tab 12/13/23 Budesonide-Formot 160-4.5 Mcg 2 puff INHALATION RT-BID 30 Days 12/13/23 [Symbicort 160-4.5 Mcg Inhaler] #1 each Cholecalciferol (Vitamin D3) 50 mcg PO DAILY 30 Days #30 tab 12/13/23 [Vitamin D3 (50 Mcg = 2000 Iu)] Esomeprazole Magnesium [NexIUM] 40 mg PO DAILY 30 Days #30 cap 12/13/23 Famotidine [Pepcid] 20 mg PO BID PRN 30 Days #60 tab 12/13/23 Ipratropium-Albuterol Nebulize 3 ml INHALATION RT-QID PRN 30 Days 12/13/23 [Duoneb 0.5 mg-3 mg/3 ml Soln] #1 each Melatonin 5 mg PO HS 30 Days #30 tab 12/13/23 Mirtazapine [Remeron] 15 mg PO HS 30 Days #30 tab 12/13/23 Montelukast [Singulair] 10 mg PO HS 30 Days #30 tab 12/13/23 Nicotine 14Mg/24Hr Patch [Habitrol] 1 patch TRANSDERM DAILY 14 Days 12/13/23 #14 patch Sertraline [Zoloft] 100 mg PO HS 30 Days #30 tab 12/13/23 hydrOXYzine pamoate [Vistaril] 25 mg PO DAILY PRN 30 Days #30 cap 12/13/23 lisinopriL [Zestril] 2.5 mg PO DAILY 30 Days #30 tab 12/13/23 Docusate [Colace] 100 mg PO BID PRN 3 Days #6 capsule 12/22/23 Famotidine [Pepcid] 20 mg PO BID PRN #40 tab 12/22/23 Lidocaine 4% Patch 1 patch TOPICAL DAILY #3 patch 12/22/23 Nicotine Gum (Polacrilex) 2 mg BUCCAL Q8HR PRN 3 Days #6 12/22/23 [Nicorette] pieceofgum Ondansetron Odt [Zofran Odt] 4 mg PO Q8HR PRN #10 tab 01/04/24 Sulfamethox-Tmp 800-160Mg [Bactrim 1 each PO Q12HR #14 tab 01/09/24 DS 800-160 mg] Nitrofurantoin Monohyd/M-Cryst 100 mg PO Q12HR #14 cap 01/13/24 [Macrobid] Allergies Allergy/AdvReac Type Severity Reaction Status Date / Time dicyclomine HCl [From Bentyl] Allergy Unknown Dyspnea Verified 01/16/24 00:36 latex Allergy Unknown Rash/Hives Verified 01/16/24 00:36 Benzoate Analogues Allergy Unknown Verified 01/16/24 00:36 nitrofurantoin Allergy Nausea Verified 01/16/24 00:36 [From Macrobid] Penicillins Allergy "[place] Verified 01/16/24 00:36 funny" adhesive AdvReac Unknown Itching Verified 01/16/24 00:36 ciprofloxacin AdvReac Unknown Nausea Verified 01/16/24 00:36 Macrolide Antibiotics AdvReac Unknown Nausea Verified 01/16/24 00:36 sulfamethoxazole AdvReac Unknown Unknown Verified 01/16/24 00:36 [From Bactrim] trimethoprim [From Bactrim] AdvReac Unknown Unknown Verified 01/16/24 00:36 diphenhydramine AdvReac Confusion Verified 01/16/24 00:36 [From Benadryl] Review of Systems ROS Statement: Those systems with pertinent positive or pertinent negative responses have been documented in the HPI. ROS Other: All systems not noted in ROS Statement are negative. Past Medical History Past Medical History: Asthma, Chest Pain / Angina, COPD, CVA/TIA, Diabetes Mellitus, GERD/Reflux, Hearing Disorder / Deafness, Hyperlipidemia, Hypertension, Liver Disease, Osteoarthritis (OA), Pneumonia, Seizure Disorder, Sleep Apnea/CPAP/BIPAP Additional Past Medical History / Comment(s): states CVA at 35 yrs old, no weakness @ this time. states seizure at 35 yrs old., DDD- back & neck pain., carpal tunnel syndrome. Has [facility] public guardian. History of Any Multi-Drug Resistant Organisms: None Reported Past Surgical History: Heart Catheterization, Orthopedic Surgery Additional Past Surgical History / Comment(s): Cysts removed, left thumb surgery, colonoscopy 08/24/2019. Skin tags removed from both eyes. Past Anesthesia/Blood Transfusion Reactions: Unable to Obtain, Motion Sickness, Postoperative Nausea & Vomiting (PONV) Past Psychological History: Anxiety, Bipolar, Depression, Schizophrenia Smoking Status: Current every day smoker Past Alcohol Use History: None Reported Past Drug Use History: None Reported - Past Family History Brother(s) Family Medical History: Diabetes Mellitus Additional Family Medical History / Comment(s): Patient has 2 brothers. One from complications from diabetes. The second is alive with diabetes. Sister(s) Family Medical History: Cancer Additional Family Medical History / Comment(s): Patient has one sister with b reast cancer. Patient does not have any children. Father Family Medical History: Cancer Additional Family Medical History / Comment(s): Father in his 40s or 50s from colon cancer. Mother Family Medical History: Cancer Additional Family Medical History / Comment(s): Mother at age 68 from lung cancer. General Exam Limitations: no limitations General appearance: alert Head exam: Present: atraumatic Rectal exam: Present: deferred Neurological exam: Present: alert Psychiatric exam: Present: anxious Course Vital Signs 01/16/24 01/16/24 00:32 01:44 Temperature 98.1 F Pulse Rate 93 90 Respiratory 19 18 Rate Blood Pressure 133/87 130/81 O2 Sat by Pulse 97 96 Oximetry - Reevaluation(s) Reevaluation #1: 01/16/24 03:49 Medical records reviewed Reevaluation #2: 01/16/24 03:49 Patient has no change in symptoms here in the ER Medical Decision Making - Medical Decision Making 53-year-old male will be discharged back to facility - Lab Data Lab Results 01/16/24 Range/Units 00:34 POC Glucose (mg/dL) 290 H (70-110) mg/dL POC Glu Irrigator Sprinkling System ID Lor Light Disposition Clinical Impression: Hyperglycemia, Nausea & vomiting Disposition: HOME SELF-CARE Condition: Fair Instructions (If sedation given, give patient instructions): Acute Nausea and Vomiting (ED) Is patient prescribed a controlled substance at d/c from ED?: No Referrals: Ramya Saul MD [Primary Care Provider] - 1-2 days Time of Disposition: 01:30
[2024-01-16 01:45] VITALS: BP 130/81; PULSE 90; RESP 18
== END 2024-01-16 01:51 | disposition home or self-care (01) ==
LOC: EC 00:19
DX: E11.65 Type 2 diabetes mellitus with hyperglycemia (principal); I10 Essential (primary) hypertension; R11.2 Nausea with vomiting, unspecified; F17.200 Nicotine dependence, unspecified, uncomplicated; Z88.8 Allergy status to other drugs, medicaments and biological substances; Z91.040 Latex allergy status; Z88.1 Allergy status to other antibiotic agents; Z88.2 Allergy status to sulfonamides; Z88.0 Allergy status to penicillin
CPT/HCPCS: 36415; 99284

== ENCOUNTER 2024-01-17 00:18 | Emergency (ER) | payer MEDICARE, OTHER ==
[2024-01-17] MEDS ORDERED: VANCOMYCIN IV PER PHARMACY 1 EACH MISC MISCELLANE PRN (00:33)
[2024-01-17 00:44] VITALS: TEMP 98.6
--- NOTE | 2024-01-17 00:48 | ED ---
Recheck HPI - General Chief Complaint: Recheck/Abnormal Lab/Rx Stated Complaint: Fever Time Seen by Provider: 01/17/24 00:30 Source: patient, RN notes reviewed, old records reviewed Mode of arrival: EMS Limitations: no limitations - History of Present Illness Initial Comments: This is a 53-year-old male to ER for evaluation reevaluation of multiple ER v isits this week patient was recently diagnosed with urinary tract infection placed on a 9 satisfactory antibiotic with resistance. Patient has not been taking the medication irregardless and complains of multiple complaints not feeling well here in the emergency department. MD Complaint: abnormal lab ( elevated blood sugar), medication refill request (Untreated urinary tract infection), other (Nonspecific complaints) -: days(s) Symptoms Since Prior Visit: no new symptoms Associated Symptoms: none - Related Data Home Medications Medication Instructions Recorded Confirmed Nitroglycerin Sl Tabs [Nitrostat] 0.4 mg SL Q5M PRN 08/20/23 12/21/23 metFORMIN HCL 1,000 mg PO BID 10/06/23 12/21/23 Ibuprofen [Motrin] 800 mg PO Q8H PRN 12/06/23 12/21/23 Insulin Glargine,Hum.rec.anlog 10 units SQ HS 12/06/23 12/21/23 [Lantus Solostar Pen] Ondansetron Odt [Zofran ODT] 4 mg PO BID PRN 12/06/23 12/21/23 glipiZIDE [Glucotrol] 5 mg PO AC-BID 12/21/23 12/21/23 Previous Rx's Medication Instructions Recorded ARIPiprazole [Abilify] 15 mg PO DAILY 30 Days #30 tab 12/13/23 Albuterol Nebulized [Ventolin 2.5 mg INHALATION RT-Q6H PRN #1 ml 12/13/23 Nebulized] Aspirin EC [Ecotrin Low Dose] 81 mg PO DAILY 30 Days #30 tab 12/13/23 Atorvastatin [Lipitor] 10 mg PO HS 30 Days #30 tab 12/13/23 Budesonide-Formot 160-4.5 Mcg 2 puff INHALATION RT-BID 30 Days 12/13/23 [Symbicort 160-4.5 Mcg Inhaler] #1 each Cholecalciferol (Vitamin D3) 50 mcg PO DAILY 30 Days #30 tab 12/13/23 [Vitamin D3 (50 Mcg = 2000 Iu)] Esomeprazole Magnesium [NexIUM] 40 mg PO DAILY 30 Days #30 cap 12/13/23 Famotidine [Pepcid] 20 mg PO BID PRN 30 Days #60 tab 12/13/23 Ipratropium-Albuterol Nebulize 3 ml INHALATION RT-QID PRN 30 Days 12/13/23 [Duoneb 0.5 mg-3 mg/3 ml Soln] #1 each Melatonin 5 mg PO HS 30 Days #30 tab 12/13/23 Mirtazapine [Remeron] 15 mg PO HS 30 Days #30 tab 12/13/23 Montelukast [Singulair] 10 mg PO HS 30 Days #30 tab 12/13/23 Nicotine 14Mg/24Hr Patch [Habitrol] 1 patch TRANSDERM DAILY 14 Days 12/13/23 #14 patch Sertraline [Zoloft] 100 mg PO HS 30 Days #30 tab 12/13/23 hydrOXYzine pamoate [Vistaril] 25 mg PO DAILY PRN 30 Days #30 cap 12/13/23 lisinopriL [Zestril] 2.5 mg PO DAILY 30 Days #30 tab 12/13/23 Docusate [Colace] 100 mg PO BID PRN 3 Days #6 capsule 12/22/23 Famotidine [Pepcid] 20 mg PO BID PRN #40 tab 12/22/23 Lidocaine 4% Patch 1 patch TOPICAL DAILY #3 patch 12/22/23 Nicotine Gum (Polacrilex) 2 mg BUCCAL Q8HR PRN 3 Days #6 12/22/23 [Nicorette] pieceofgum Ondansetron Odt [Zofran Odt] 4 mg PO Q8HR PRN #10 tab 01/04/24 Sulfamethox-Tmp 800-160Mg [Bactrim 1 each PO Q12HR #14 tab 01/09/24 DS 800-160 mg] Nitrofurantoin Monohyd/M-Cryst 100 mg PO Q12HR #14 cap 01/13/24 [Macrobid] Nitrofurantoin Monohyd/M-Cryst 100 mg PO Q12HR #10 cap 01/17/24 [Macrobid] Allergies Allergy/AdvReac Type Severity Reaction Status Date / Time dicyclomine HCl [From Bentyl] Allergy Unknown Dyspnea Verified 01/17/24 00:41 latex Allergy Unknown Rash/Hives Verified 01/17/24 00:41 Benzoate Analogues Allergy Unknown Verified 01/17/24 00:41 nitrofurantoin Allergy Nausea Verified 01/17/24 00:41 [From Macrobid] Penicillins Allergy "[place] Verified 01/17/24 00:41 funny" adhesive AdvReac Unknown Itching Verified 01/17/24 00:41 ciprofloxacin AdvReac Unknown Nausea Verified 01/17/24 00:41 Macrolide Antibiotics AdvReac Unknown Nausea Verified 01/17/24 00:41 sulfamethoxazole AdvReac Unknown Unknown Verified 01/17/24 00:41 [From Bactrim] trimethoprim [From Bactrim] AdvReac Unknown Unknown Verified 01/17/24 00:41 diphenhydramine AdvReac Confusion Verified 01/17/24 00:41 [From Benadryl] Review of Systems ROS Statement: Those systems with pertinent positive or pertinent negative responses have been documented in the HPI. ROS Other: All systems not noted in ROS Statement are negative. Past Medical History Past Medical History: Asthma, Chest Pain / Angina, COPD, CVA/TIA, Diabetes Mellitus, GERD/Reflux, Hearing Disorder / Deafness, Hyperlipidemia, Hypertension, Liver Disease, Osteoarthritis (OA), Pneumonia, Seizure Disorder, Sleep Apnea/CPAP/BIPAP Additional Past Medical History / Comment(s): states CVA at 35 yrs old, no weakness @ this time. states seizure at 35 yrs old., DDD- back & neck pain., carpal tunnel syndrome. Has [employer] public guardian. History of Any Multi-Drug Resistant Organisms: None Reported Past Surgical History: Heart Catheterization, Orthopedic Surgery Additional Past Surgical History / Comment(s): Cysts removed, left thumb surgery, colonoscopy 08/24/2019. Skin tags removed from both eyes. Past Anesthesia/Blood Transfusion Reactions: Unable to Obtain, Motion Sickness, Postoperative Nausea & Vomiting (PONV) Past Psychological History: Anxiety, Bipolar, Depression, Schizophrenia Smoking Status: Current every day smoker Past Alcohol Use History: None Reported Past Drug Use History: None Reported - Past Family History Brother(s) Family Medical History: Diabetes Mellitus Additional Family Medical History / Comment(s): Patient has 2 brothers. One from complications from diabetes. The second is alive with diabetes. Sister(s) Family Medical History: Cancer Additional Family Medical History / Comment(s): Patient has one sister with breast cancer. Patient does not have any children. Father Family Medical History: Cancer Additional Family Medical History / Comment(s): Father in his 40s or 50s from colon cancer. Mother Family Medical History: Cancer Additional Family Medical History / Comment(s): Mother at age 68 from lung cancer. General Exam Limitations: no limitations General appearance: alert, in no apparent distress Head exam: Present: atraumatic, normocephalic, normal inspection Eye exam: Present: normal appearance, PERRL, EOMI. Absent: scleral icterus, conjunctival injection, periorbital swelling ENT exam: Present: normal exam, mucous membranes moist Neck exam: Present: normal inspection. Absent: tenderness, meningismus, lymphadenopathy Respiratory exam: Present: normal lung sounds bilaterally. Absent: respiratory distress, wheezes, rales, rhonchi, stridor Cardiovascular Exam: Present: regular rate, normal rhythm, normal heart sounds. Absent: systolic murmur, diastolic murmur, rubs, gallop, clicks GI/Abdominal exam: Present: soft, normal bowel sounds. Absent: distended, tenderness, guarding, rebound, rigid Extremities exam: Present: normal inspection, full ROM, normal capillary refill. Absent: tenderness, pedal edema, joint swelling, calf tenderness Back exam: Present: normal inspection Neurological exam: Present: alert, oriented X3, CN II-XII intact Psychiatric exam: Present: normal affect, normal mood Skin exam: Present: warm, dry, intact, normal color. Absent: rash Course Vital Signs 01/17/24 01/17/24 00:41 04:28 Temperature 98.6 F Pulse Rate 74 65 Respiratory 20 18 Rate Blood Pressure 113/65 100/68 O2 Sat by Pulse 98 98 Oximetry - Reevaluation(s) Reevaluation #1: 01/17/24 01:04 Medical records reviewed Reevaluation #2: 01/17/24 01:04 Patient symptoms unchanged Reevaluation #3: 01/17/24 01:04 Patient informed of results questions answered Reevaluation #4: Was pt. sent in by a medical professional or institution (, PA, BALLET MASTER/MISTRESS, urgent care, hospital, or senior living...) When possible be specific @ -no Did you speak to anyone other than the patient for history (EMS, parent, family, police, friend...)? What history was obtained from this source @ -no Did you review nursing and triage notes (agree or disagree)? Why? @ -agree Are old charts reviewed (outside hosp., previous admission, EMS record, old EKG, old radiological studies, urgent care reports/EKG's, senior living records)? Report findings @ -yes Differential Diagnosis (chest pain, altered mental status, abdominal pain women, abdominal pain men, vaginal bleeding, weakness, fever, dyspnea, syncope, headache, dizziness, GI bleed, back pain, seizure, CVA, palpatations, mental health, musculoskeletal)? @ -prior EKG interpreted by me (3pts min.). @ -no X-rays interpreted by me (1pt min.). @ -no CT interpreted by me (1pt min.). @ -no U/S interpreted by me (1pt. min.). @ -no What testing was considered but not performed or refused? (CT, X-rays, U/S, labs)? Why? @ -none What meds were considered but not given or refused? Why? @ -none Did you discuss the management of the patient with other professionals (professionals i.e. , PA, BALLET MASTER/MISTRESS, lab, RT, psych nurse, sr. social media & mobile manager, oil pump station operator chief, teacher, chief digital officer, case folder)? Give summary @ -no Was smoking cessation discussed for >3mins.? @ -no Was critical care preformed (if so, how long)? @ -no Were there social determinants of health that impacted care today? How? (Homelessness, low income, unemployed, alcoholism, drug addiction, transportation, low edu. Level, literacy, decrease access to med. care, [facility], rehab)? @ -none Was there de-escalation of care discussed even if they declined (Discuss DNR or withdrawal of care, Hospice)? DNR status @ -no What co-morbidities impacted this encounter? (DM, HTN, Smoking, COPD, CAD, Cancer, CVA, ARF, Chemo, Hep., AIDS, mental health diagnosis, sleep apnea, morbid obesity)? @ -none Was patient admitted / discharged? Hospital course, mention meds given and route, prescriptions, significant lab abnormalities, going to OR and other pertinent info. @ - 53 male with untreated urinary tract infection bacteria is noted in the urine, patient is changed antibiotic here in the ER and can be discharged home Discharge UTI Undiagnosed new problem with uncertain prognosis? @ -no Drug Therapy requiring intensive monitoring for toxicity (Heparin, Nitro, Insulin, Cardizem)? @ -no Were any procedures done? @ -no Diagnosis/symptom? @ - Acute, or Chronic, or Acute on Chronic? @ -Acute Uncomplicated (without systemic symptoms) or Complicated (systemic symptoms)? @ -Complicated Side effects of treatment? @ -no Exacerbation, Progression, or Severe Exacerbation? @ -exacerbation Poses a threat to life or bodily function? How? (Chest pain, USA, PA, pneumonia, PE, COPD, DKA, ARF, appy, cholecystitis, CVA, Diverticulitis, Homicidal, Suicidal, threat to staff... and all critical care pts) @ -no Medical Decision Making - Medical Decision Making 53 male with untreated urinary tract infection bacteria is noted in the urine, patient is changed antibiotic here in the ER and can be discharged home - Lab Data Result diagrams: 01/17/24 01:43 01/17/24 02:11 Lab Results 01/17/24 01/17/24 01/17/24 Range/Units 01:43 01:43 01:45 WBC 7.2 (3.8-10.6) k/uL RBC 4.79 (4.30-5.90) m/uL Hgb 15.0 (13.0-17.5) gm/dL Hct 43.1 (39.0-53.0) % MCV 89.9 (80.0-100.0) fL MCH 31.2 (25.0-35.0) pg MCHC 34.8 (31.0-37.0) g/dL RDW 13.3 (11.5-15.5) % Plt Count 217 (150-450) k/uL MPV 7.3 Neutrophils % 66 % Lymphocytes % 22 % Monocytes % 5 % Eosinophils % 5 % Basophils % 0 % Neutrophils # 4.8 (1.3-7.7) k/uL Lymphocytes # 1.6 (1.0-4.8) k/uL Monocytes # 0.4 (0-1.0) k/uL Eosinophils # 0.4 (0-0.7) k/uL Basophils # 0.0 (0-0.2) k/uL Sodium (137-145) mmol/L Potassium (3.5-5.1) mmol/L Chloride (98-107) mmol/L Carbon Dioxide (22-30) mmol/L Anion Gap mmol/L BUN (9-20) mg/dL Creatinine (0.66-1.25) mg/dL Est GFR (CKD-EPI)AfAm (>60 ml/min/1.73 sqM) Est GFR (CKD-EPI)NonAf (>60 ml/min/1.73 sqM) Glucose (74-99) mg/dL Plasma Lactic Acid Hunter 1.4 (0.7-2.0) mmol/L Calcium (8.4-10.2) mg/dL Phosphorus (2.5-4.5) mg/dL Magnesium (1.6-2.3) mg/dL Total Bilirubin (0.2-1.3) mg/dL AST (17-59) U/L ALT (4-49) U/L Alkaline Phosphatase (38-126) U/L Total Protein (6.3-8.2) g/dL Albumin (3.5-5.0) g/dL Urine Color Colorless Urine Appearance Clear (Clear) Urine pH 6.5 (5.0-8.0) Ur Specific [place] 1.006 (1.001-1.035) Urine Protein Negative (Negative) Urine Glucose (UA) 3+ H (Negative) Urine Ketones Negative (Negative) Urine Blood Negative (Negative) Urine Nitrite Negative (Negative) Urine Bilirubin Negative (Negative) Urine Urobilinogen <2.0 (<2.0) mg/dL Ur Leukocyte Esterase Negative (Negative) Acetone, Qual (Negative) 01/17/24 Range/Units 02:11 WBC (3.8-10.6) k/uL RBC (4.30-5.90) m/uL Hgb (13.0-17.5) gm/dL Hct (39.0-53.0) % MCV (80.0-100.0) fL MCH (25.0-35.0) pg MCHC (31.0-37.0) g/dL RDW (11.5-15.5) % Plt Count (150-450) k/uL MPV Neutrophils % % Lymphocytes % % Monocytes % % Eosinophils % % Basophils % % Neutrophils # (1.3-7.7) k/uL Lymphocytes # (1.0-4.8) k/uL Monocytes # (0-1.0) k/uL Eosinophils # (0-0.7) k/uL Basophils # (0-0.2) k/uL Sodium 137 (137-145) mmol/L Potassium 4.0 (3.5-5.1) mmol/L Chloride 110 H (98-107) mmol/L Carbon Dioxide 21 L (22-30) mmol/L Anion Gap 6 mmol/L BUN 11 (9-20) mg/dL Creatinine 0.55 L (0.66-1.25) mg/dL Est GFR (CKD-EPI)AfAm >90 (>60 ml/min/1.73 sqM) Est GFR (CKD-EPI)NonAf >90 (>60 ml/min/1.73 sqM) Glucose 182 H (74-99) mg/dL Plasma Lactic Acid Hunter (0.7-2.0) mmol/L Calcium 9.3 (8.4-10.2) mg/dL Phosphorus 3.5 (2.5-4.5) mg/dL Magnesium 1.7 (1.6-2.3) mg/dL Total Bilirubin 0.4 (0.2-1.3) mg/dL AST 31 (17-59) U/L ALT 42 (4-49) U/L Alkaline Phosphatase 101 (38-126) U/L Total Protein 5.7 L (6.3-8.2) g/dL Albumin 3.9 (3.5-5.0) g/dL Urine Color Urine Appearance (Clear) Urine pH (5.0-8.0) Ur Specific [place] (1.001-1.035) Urine Protein (Negative) Urine Glucose (UA) (Negative) Urine Ketones (Negative) Urine Blood (Negative) Urine Nitrite (Negative) Urine Bilirubin (Negative) Urine Urobilinogen (<2.0) mg/dL Ur Leukocyte Esterase (Negative) Acetone, Qual Negative (Negative) Disposition Clinical Impression: Urinary tract infection Disposition: HOME SELF-CARE Condition: Fair Instructions (If sedation given, give patient instructions): Urinary Tract Infection in Men (ED) Prescriptions: Nitrofurantoin Monohyd/M-Cryst [Macrobid] 100 mg PO Q12HR #10 cap Is patient prescribed a controlled substance at d/c from ED?: No Referrals: Ramya Saul MD [Primary Care Provider] - 1-2 days Time of Disposition: 01:30
[2024-01-17 01:54] LABS: Basophils % (A) 0 %; Eosinophils # (A) 0.4 k/uL (0-0.7); Eosinophils % (A) 5 %; HCT 43.1 % (39.0-53.0); Lymphocytes # (A) 1.6 k/uL (1.0-4.8); Lymphocytes % (A) 22 %; MCH 31.2 pg (25.0-35.0); MCHC 34.8 g/dL (31.0-37.0); MCV 89.9 fL (80.0-100.0); Mean Platelet Volume 7.3; Monocytes # (A) 0.4 k/uL (0-1.0); Monocytes % (A) 5 %; Neutrophils # (A) 4.8 k/uL (1.3-7.7); Neutrophils % (A) 66 %; Platelet Count 217 k/uL (150-450); RBC 4.79 m/uL (4.30-5.90); RDW 13.3 % (11.5-15.5); WBC 7.2 k/uL (3.8-10.6)
[2024-01-17] MEDS: SODIUM CHLORIDE 0.9% 1,000 ML IV STA (01:54)
[2024-01-17] MEDS: ONDANSETRON 4 MG/2 ML VIAL IVP STA (01:56)
[2024-01-17] MEDS: NITROFURANTOIN MONOHYD/M-CRYST 100 MG CAP PO STA (01:59)
[2024-01-17] MEDS: VANCOMYCIN 1,250 MG in SODIUM CHLORIDE 0.9% 250 ML IVPB ONE (02:02)
[2024-01-17 02:03] LABS: Appearance,Urine Clear (Clear); Bilirubin,Urine Negative (Negative); Blood,Urine Negative (Negative); Color,Urine Colorless; Glucose,Urine (UA) 3+ (Negative); Ketones,Urine Negative (Negative); Leukocyte Esterase,Urine Negative (Negative); Nitrite,Urine Negative (Negative); PH, Urine 6.5 (5.0-8.0); Protein,Urine Negative (Negative); Specific Gravity,Urine 1.006 (1.001-1.035); Urobilinogen,Urine <2.0 mg/dL (<2.0)
[2024-01-17 02:40] LABS: ALT 42 U/L (4-49); AST 31 U/L (17-59); African American GFR (CKD) >90 (>60 ml/min/1.73 sqM); Albumin 3.9 g/dL (3.5-5.0); Alkaline Phosphatase 101 U/L (38-126); Anion Gap 6 mmol/L; Blood Urea Nitrogen 11 mg/dL (9-20); Calcium 9.3 mg/dL (8.4-10.2); Carbon Dioxide 21 mmol/L (22-30); Chloride 110 mmol/L (98-107); Glucose 182 mg/dL (74-99); Magnesium 1.7 mg/dL (1.6-2.3); Non-African American GFR(CKD) >90 (>60 ml/min/1.73 sqM); Phosphorus 3.5 mg/dL (2.5-4.5); Sodium 137 mmol/L (137-145); Total Bilirubin 0.4 mg/dL (0.2-1.3); Total Protein 5.7 g/dL (6.3-8.2)
[2024-01-17 04:29] VITALS: BP 100/68; PULSE 65; RESP 18
== END 2024-01-17 04:29 | disposition home or self-care (01) ==
LOC: EC 00:18
DX: N39.0 Urinary tract infection, site not specified (principal); F17.200 Nicotine dependence, unspecified, uncomplicated; Z91.040 Latex allergy status; Z88.8 Allergy status to other drugs, medicaments and biological substances; Z88.0 Allergy status to penicillin; Z88.1 Allergy status to other antibiotic agents; Z91.09 Other allergy status, other than to drugs and biological substances
CPT/HCPCS: 36415; 80053; 82009; 83605; 83735; 84100; 85025; 81003; 99283; 96365; 96366; 96375; J3370; J2405

== ENCOUNTER 2024-01-19 13:49 | Emergency (ER) | payer MEDICARE, OTHER ==
--- NOTE | 2024-01-19 14:19 | ED ---
ENT HPI - General Chief complaint: ENT Stated complaint: throat pain Time Seen by Provider: 01/19/24 14:16 Source: patient, RN notes reviewed Mode of arrival: ambulatory Limitations: no limitations - History of Present Illness Initial comments: 53-year-old male presents emergency department with chief complaint of sore throat. He is this is a ongoing issue nothing new today states that he had a barium swallow states it bothered his throat. Patient denies any difficulty breathing he is swallowing secretions well. - Related Data Home Medications Medication Instructions Recorded Confirmed Nitroglycerin Sl Tabs [Nitrostat] 0.4 mg SL Q5M PRN 08/20/23 12/21/23 metFORMIN HCL 1,000 mg PO BID 10/06/23 12/21/23 Ibuprofen [Motrin] 800 mg PO Q8H PRN 12/06/23 12/21/23 Insulin Glargine,Hum.rec.anlog 10 units SQ HS 12/06/23 12/21/23 [Lantus Solostar Pen] Ondansetron Odt [Zofran ODT] 4 mg PO BID PRN 12/06/23 12/21/23 glipiZIDE [Glucotrol] 5 mg PO AC-BID 12/21/23 12/21/23 Previous Rx's Medication Instructions Recorded ARIPiprazole [Abilify] 15 mg PO DAILY 30 Days #30 tab 12/13/23 Albuterol Nebulized [Ventolin 2.5 mg INHALATION RT-Q6H PRN #1 ml 12/13/23 Nebulized] Aspirin EC [Ecotrin Low Dose] 81 mg PO DAILY 30 Days #30 tab 12/13/23 Atorvastatin [Lipitor] 10 mg PO HS 30 Days #30 tab 12/13/23 Budesonide-Formot 160-4.5 Mcg 2 puff INHALATION RT-BID 30 Days 12/13/23 [Symbicort 160-4.5 Mcg Inhaler] #1 each Cholecalciferol (Vitamin D3) 50 mcg PO DAILY 30 Days #30 tab 12/13/23 [Vitamin D3 (50 Mcg = 2000 Iu)] Esomeprazole Magnesium [NexIUM] 40 mg PO DAILY 30 Days #30 cap 12/13/23 Famotidine [Pepcid] 20 mg PO BID PRN 30 Days #60 tab 12/13/23 Ipratropium-Albuterol Nebulize 3 ml INHALATION RT-QID PRN 30 Days 12/13/23 [Duoneb 0.5 mg-3 mg/3 ml Soln] #1 each Melatonin 5 mg PO HS 30 Days #30 tab 12/13/23 Mirtazapine [Remeron] 15 mg PO HS 30 Days #30 tab 12/13/23 Montelukast [Singulair] 10 mg PO HS 30 Days #30 tab 12/13/23 Nicotine 14Mg/24Hr Patch [Habitrol] 1 patch TRANSDERM DAILY 14 Days 12/13/23 #14 patch Sertraline [Zoloft] 100 mg PO HS 30 Days #30 tab 12/13/23 hydrOXYzine pamoate [Vistaril] 25 mg PO DAILY PRN 30 Days #30 cap 12/13/23 lisinopriL [Zestril] 2.5 mg PO DAILY 30 Days #30 tab 12/13/23 Docusate [Colace] 100 mg PO BID PRN 3 Days #6 capsule 12/22/23 Famotidine [Pepcid] 20 mg PO BID PRN #40 tab 12/22/23 Lidocaine 4% Patch 1 patch TOPICAL DAILY #3 patch 12/22/23 Nicotine Gum (Polacrilex) 2 mg BUCCAL Q8HR PRN 3 Days #6 12/22/23 [Nicorette] pieceofgum Ondansetron Odt [Zofran Odt] 4 mg PO Q8HR PRN #10 tab 01/04/24 Sulfamethox-Tmp 800-160Mg [Bactrim 1 each PO Q12HR #14 tab 01/09/24 DS 800-160 mg] Nitrofurantoin Monohyd/M-Cryst 100 mg PO Q12HR #14 cap 01/13/24 [Macrobid] Nitrofurantoin Monohyd/M-Cryst 100 mg PO Q12HR #10 cap 01/17/24 [Macrobid] Allergies Allergy/AdvReac Type Severity Reaction Status Date / Time dicyclomine HCl [From Bentyl] Allergy Unknown Dyspnea Verified 01/17/24 00:41 latex Allergy Unknown Rash/Hives Verified 01/17/24 00:41 Benzoate Analogues Allergy Unknown Verified 01/17/24 00:41 nitrofurantoin Allergy Nausea Verified 01/17/24 00:41 [From Macrobid] Penicillins Allergy "Deer Verified 01/17/24 00:41 funny" adhesive AdvReac Unknown Itching Verified 01/17/24 00:41 ciprofloxacin AdvReac Unknown Nausea Verified 01/17/24 00:41 Macrolide Antibiotics AdvReac Unknown Nausea Verified 01/17/24 00:41 sulfamethoxazole AdvReac Unknown Unknown Verified 01/17/24 00:41 [From Bactrim] trimethoprim [From Bactrim] AdvReac Unknown Unknown Verified 01/17/24 00:41 diphenhydramine AdvReac Confusion Verified 01/17/24 00:41 [From Benadryl] Review of Systems ROS Statement: Those systems with pertinent positive or pertinent negative responses have been documented in the HPI. ROS Other: All systems not noted in ROS Statement are negative. Past Medical History Past Medical History: Asthma, Chest Pain / Angina, COPD, CVA/TIA, Diabetes Mellitus, GERD/Reflux, Hearing Disorder / Deafness, Hyperlipidemia, Hypertension, Liver Disease, Osteoarthritis (OA), Pneumonia, Seizure Disorder, Sleep Apnea/CPAP/BIPAP Additional Past Medical History / Comment(s): states CVA at 35 yrs old, no weakness @ this time. states seizure at 35 yrs old., DDD- back & neck pain., carpal tunnel syndrome. Has [facility] public guardian. History of Any Multi-Drug Resistant Organisms: None Reported Past Surgical History: Heart Catheterization, Orthopedic Surgery Additional Past Surgical History / Comment(s): Cysts removed, left thumb surgery, colonoscopy 08/24/2019. Skin tags removed from both eyes. Past Anesthesia/Blood Transfusion Reactions: Unable to Obtain, Motion Sickness, Postoperative Nausea & Vomiting (PONV) Past Psychological History: Anxiety, Bipolar, Depression, Schizophrenia Smoking Status: Current every day smoker Past Alcohol Use History: None Reported Past Drug Use History: None Reported - Past Family History Brother(s) Family Medical History: Diabetes Mellitus Additional Family Medical History / Comment(s): Patient has 2 brothers. One from complications from diabetes. The second is alive with diabetes. Sister(s) Family Medical History: Cancer Additional Family Medical History / Comment(s): Patient has one sister with breast cancer. Patient does not have any children. Father Family Medical History: Cancer Additional Family Medical History / Comment(s): Father in his 40s or 50s from colon cancer. Mother Family Medical History: Cancer Additional Family Medical History / Comment(s): Mother at age 68 from lung cancer. General Exam Limitations: no limitations General appearance: alert, in no apparent distress Head exam: Present: atraumatic, normocephalic, normal inspection Eye exam: Present: normal appearance, PERRL, EOMI. Absent: scleral icterus, conjunctival injection, periorbital swelling ENT exam: Present: normal exam, normal oropharynx, mucous membranes moist Neck exam: Present: normal inspection, full ROM. Absent: tenderness, meningismus, lymphadenopathy Respiratory exam: Present: normal lung sounds bilaterally. Absent: respiratory distress, wheezes, rales, rhonchi, stridor Cardiovascular Exam: Present: regular rate, normal rhythm, normal heart sounds. Absent: systolic murmur, diastolic murmur, rubs, gallop, clicks GI/Abdominal exam: Present: soft, normal bowel sounds. Absent: distended, tenderness, guarding, rebound, rigid Course Vital Signs 01/19/24 13:51 Temperature 97.8 F Pulse Rate 83 Respiratory 18 Rate Blood Pressure 126/81 O2 Sat by Pulse 98 Oximetry Medical Decision Making - Medical Decision Making Was pt. sent in by a medical professional or institution (, PA, CATERING DIRECTOR, urgent care, hospital, or snf...) When possible be specific @ -No Did you speak to anyone other than the patient for history (EMS, parent, family, police, friend...)? What history was obtained from this source @ -No Did you review nursing and triage notes (agree or disagree)? Why? @ -I reviewed and agree with nursing and triage notes Were old charts reviewed (outside hosp., previous admission, EMS record, old EKG, old radiological studies, urgent care reports/EKG's, snf records)? Report findings @ -No old charts were reviewed Differential Diagnosis (chest pain, altered mental status, abdominal pain women, abdominal pain men, vaginal bleeding, weakness, fever, dyspnea, syncope, headache, dizziness, GI bleed, back pain, seizure, CVA, palpatations, mental health, musculoskeletal)? @ -Pharyngitis, tonsillitis, GERD, reflux EKG interpreted by me (3pts min.). @ -None X-rays interpreted by me (1pt min.). @ -None done CT interpreted by me (1pt min.). @ -None done U/S interpreted by me (1pt. min.). @ -None done What testing was considered but not performed or refused? (CT, X-rays, U/S, labs)? Why? @ -None What meds were considered but not given or refused? Why? @ -None Did you discuss the management of the patient with other professionals (professionals i.e. DrRedd, PA, CATERING DIRECTOR, lab, RT, psych nurse, social services designee, merchandise associate, teacher, founder and chief executive officer, comp field case manager)? Give summary @ -No Was smoking cessation discussed for >3mins.? @ -No Was critical care preformed (if so, how long)? @ -No Were there social determinants of health that impacted care today? How? (Homelessness, low income, unemployed, alcoholism, drug addiction, transportation, low edu. Level, literacy, decrease access to med. care, penitentiary, rehab)? @ -No Was there de-escalation of care discussed even if they declined (Discuss DNR or withdrawal of care, Hospice)? DNR status @ -No What co-morbidities impacted this encounter? (DM, HTN, Smoking, COPD, CAD, Cancer, CVA, ARF, Chemo, Hep., AIDS, mental health diagnosis, sleep apnea, morbid obesity)? @ -None Was patient admitted / discharged? Hospital course, mention meds given and route, prescriptions, significant lab abnormalities, going to OR and other pertinent info. @ -Discharge this is a chronic issue for the patient. There is no new symptoms today. He is swallowing secretions well no dyspnea. Undiagnosed new problem with uncertain prognosis? @ -No Drug Therapy requiring intensive monitoring for toxicity (Heparin, Nitro, Insulin, Cardizem)? @ -No Were any procedures done? @ -No Diagnosis/symptom? @ -Pharyngitis Acute, or Chronic, or Acute on Chronic? @ -Chronic Uncomplicated (without systemic symptoms) or Complicated (systemic symptoms)? @ -Uncomplicated Side effects of treatment? @ -No Exacerbation, Progression, or Severe Exacerbation? @ -No Poses a threat to life or bodily function? How? (Chest pain, [place], [place], pneumonia, PE, COPD, DKA, ARF, appy, cholecystitis, CVA, Diverticulitis, Homicidal, Suicidal, threat to staff... and all critical care pts) @ -No Disposition Clinical Impression: Acute pharyngitis Disposition: HOME SELF-CARE Condition: Stable Instructions (If sedation given, give patient instructions): Pharyngitis (ED) Additional Instructions: Please return to the Emergency Department if symptoms worsen or any other concerns. Is patient prescribed a controlled substance at d/c from ED?: No Referrals: Ramya Saul MD [Primary Care Provider] - 1-2 days Time of Disposition: 14:18
[2024-01-19] MEDS: LIDOCAINE VISCOUS 2% 15 ML CUP PO ONE (15:00)
[2024-01-19 15:04] VITALS: BP 102/67; PULSE 69; RESP 16; TEMP 98.3
== END 2024-01-19 15:07 | disposition home or self-care (01) ==
LOC: EC 13:49
DX: J02.9 Acute pharyngitis, unspecified (principal); F17.200 Nicotine dependence, unspecified, uncomplicated; Z88.0 Allergy status to penicillin; Z88.1 Allergy status to other antibiotic agents; Z88.2 Allergy status to sulfonamides; Z88.8 Allergy status to other drugs, medicaments and biological substances; Z91.040 Latex allergy status; Z91.09 Other allergy status, other than to drugs and biological substances; Z86.73 Personal history of transient ischemic attack (TIA), and cerebral infarction without residual deficits
CPT/HCPCS: 99282

== ENCOUNTER 2024-01-19 23:01 | Emergency (ER) | payer MEDICARE, OTHER ==
[2024-01-19 23:06] VITALS: RESP 18
--- NOTE | 2024-01-19 23:43 | ED ---
Recheck HPI - General Chief Complaint: Dizziness Stated Complaint: High BP, Dizzines Time Seen by Provider: 01/19/24 23:20 Source: patient, RN notes reviewed, old records reviewed Mode of arrival: ambulatory Limitations: no limitations - History of Present Illness Initial Comments: This is a 53-year-old male to ER for evaluation of weakness and complaints of hypertension as well as complaints of multiple other issues nausea vomiting abdominal pain body aches body pains significant reevaluations. Multiple evaluations here in the emergency department -: unknown Symptoms Since Prior Visit: no new symptoms Associated Symptoms: none Treatments Prior to Arrival: other (0) - Related Data Home Medications Medication Instructions Recorded Confirmed Nitroglycerin Sl Tabs [Nitrostat] 0.4 mg SL Q5M PRN 08/20/23 12/21/23 metFORMIN HCL 1,000 mg PO BID 10/06/23 12/21/23 Ibuprofen [Motrin] 800 mg PO Q8H PRN 12/06/23 12/21/23 Insulin Glargine,Hum.rec.anlog 10 units SQ HS 12/06/23 12/21/23 [Lantus Solostar Pen] Ondansetron Odt [Zofran ODT] 4 mg PO BID PRN 12/06/23 12/21/23 glipiZIDE [Glucotrol] 5 mg PO AC-BID 12/21/23 12/21/23 Previous Rx's Medication Instructions Recorded ARIPiprazole [Abilify] 15 mg PO DAILY 30 Days #30 tab 12/13/23 Albuterol Nebulized [Ventolin 2.5 mg INHALATION RT-Q6H PRN #1 ml 12/13/23 Nebulized] Aspirin EC [Ecotrin Low Dose] 81 mg PO DAILY 30 Days #30 tab 12/13/23 Atorvastatin [Lipitor] 10 mg PO HS 30 Days #30 tab 12/13/23 Budesonide-Formot 160-4.5 Mcg 2 puff INHALATION RT-BID 30 Days 12/13/23 [Symbicort 160-4.5 Mcg Inhaler] #1 each Cholecalciferol (Vitamin D3) 50 mcg PO DAILY 30 Days #30 tab 12/13/23 [Vitamin D3 (50 Mcg = 2000 Iu)] Esomeprazole Magnesium [NexIUM] 40 mg PO DAILY 30 Days #30 cap 06/17/24 Famotidine [Pepcid] 20 mg PO BID PRN 30 Days #60 tab 12/13/23 Ipratropium-Albuterol Nebulize 3 ml INHALATION RT-QID PRN 30 Days 12/13/23 [Duoneb 0.5 mg-3 mg/3 ml Soln] #1 each Melatonin 5 mg PO HS 30 Days #30 tab 12/13/23 Mirtazapine [Remeron] 15 mg PO HS 30 Days #30 tab 12/13/23 Montelukast [Singulair] 10 mg PO HS 30 Days #30 tab 12/13/23 Nicotine 14Mg/24Hr Patch [Habitrol] 1 patch TRANSDERM DAILY 14 Days 12/13/23 #14 patch Sertraline [Zoloft] 100 mg PO HS 30 Days #30 tab 12/13/23 hydrOXYzine pamoate [Vistaril] 25 mg PO DAILY PRN 30 Days #30 cap 12/13/23 lisinopriL [Zestril] 2.5 mg PO DAILY 30 Days #30 tab 12/13/23 Docusate [Colace] 100 mg PO BID PRN 3 Days #6 capsule 12/22/23 Famotidine [Pepcid] 20 mg PO BID PRN #40 tab 12/22/23 Lidocaine 4% Patch 1 patch TOPICAL DAILY #3 patch 12/22/23 Nicotine Gum (Polacrilex) 2 mg BUCCAL Q8HR PRN 3 Days #6 12/22/23 [Nicorette] pieceofgum Ondansetron Odt [Zofran Odt] 4 mg PO Q8HR PRN #10 tab 01/04/24 Sulfamethox-Tmp 800-160Mg [Bactrim 1 each PO Q12HR #14 tab 01/09/24 DS 800-160 mg] Nitrofurantoin Monohyd/M-Cryst 100 mg PO Q12HR #14 cap 01/13/24 [Macrobid] Nitrofurantoin Monohyd/M-Cryst 100 mg PO Q12HR #10 cap 01/17/24 [Macrobid] Allergies Allergy/AdvReac Type Severity Reaction Status Date / Time dicyclomine HCl [From Bentyl] Allergy Unknown Dyspnea Verified 01/20/24 14:30 latex Allergy Unknown Rash/Hives Verified 01/20/24 14:30 Benzoate Analogues Allergy Unknown Verified 01/20/24 14:30 nitrofurantoin Allergy Nausea Verified 01/20/24 14:30 [From Macrobid] Penicillins Allergy "[place] Verified 01/20/24 14:30 funny" adhesive AdvReac Unknown Itching Verified 01/20/24 14:30 ciprofloxacin AdvReac Unknown Nausea Verified 01/20/24 14:30 Macrolide Antibiotics AdvReac Unknown Nausea Verified 01/20/24 14:30 sulfamethoxazole AdvReac Unknown Unknown Verified 01/20/24 14:30 [From Bactrim] trimethoprim [From Bactrim] AdvReac Unknown Unknown Verified 01/20/24 14:30 diphenhydramine AdvReac Confusion Verified 01/17/24 00:41 [From Benadryl] Review of Systems ROS Statement: Those systems with pertinent positive or pertinent negative responses have been documented in the HPI. ROS Other: All systems not noted in ROS Statement are negative. Past Medical History Past Medical History: Asthma, Chest Pain / Angina, COPD, CVA/TIA, Diabetes Mellitus, GERD/Reflux, Hearing Disorder / Deafness, Hyperlipidemia, Hypertension, Liver Disease, Osteoarthritis (OA), Pneumonia, Seizure Disorder, Sleep Apnea/CPAP/BIPAP Additional Past Medical History / Comment(s): states CVA at 35 yrs old, no weakness @ this time. states seizure at 35 yrs old., DDD- back & neck pain., carpal tunnel syndrome. Has [facility] public guardian. History of Any Multi-Drug Resistant Organisms: None Reported Past Surgical History: Heart Catheterization, Orthopedic Surgery Additional Past Surgical History / Comment(s): Cysts removed, left thumb surgery, colonoscopy 08/24/2019. Skin tags removed from both eyes. Past Anesthesia/Blood Transfusion Reactions: Unable to Obtain, Motion Sickness, Postoperative Nausea & Vomiting (PONV) Past Psychological History: Anxiety, Bipolar, Depression, Schizophrenia Smoking Status: Current every day smoker Past Alcohol Use History: None Reported Past Drug Use History: None Reported - Past Family History Brother(s) Family Medical History: Diabetes Mellitus Additional Family Medical History / Comment(s): Patient has 2 brothers. One from complications from diabetes. The second is alive with diabetes. Sister(s) Family Medical History: Cancer Additional Family Medical History / Comment(s): Patient has one sister with breast cancer. Patient does not have any children. Father Family Medical History: Cancer Additional Family Medical History / Comment(s): Father in his 40s or 50s from colon cancer. Mother Family Medical History: Cancer Additional Family Medical History / Comment(s): Mother at age 68 from lung cancer. General Exam General appearance: alert, in no apparent distress Head exam: Present: atraumatic, normocephalic, normal inspection Eye exam: Present: normal appearance, PERRL, EOMI. Absent: scleral icterus, conjunctival injection, periorbital swelling ENT exam: Present: normal exam, mucous membranes moist Neck exam: Present: normal inspection. Absent: tenderness, meningismus, lymphadenopathy Respiratory exam: Present: normal lung sounds bilaterally. Absent: respiratory distress, wheezes, rales, rhonchi, stridor Cardiovascular Exam: Present: regular rate, normal rhythm, normal heart sounds. Absent: systolic murmur, diastolic murmur, rubs, gallop, clicks GI/Abdominal exam: Present: soft, normal bowel sounds. Absent: distended, tenderness, guarding, rebound, rigid Extremities exam: Present: normal inspection, full ROM, normal capillary refill. Absent: tenderness, pedal edema, joint swelling, calf tenderness Back exam: Present: normal inspection Neurological exam: Present: alert, oriented X3, CN II-XII intact Psychiatric exam: Present: normal affect, normal mood Skin exam: Present: warm, dry, intact, normal color. Absent: rash Course Vital Signs 01/19/24 01/19/24 23:03 23:55 Temperature 98.7 F 98.1 F Pulse Rate 81 62 Respiratory 18 18 Rate Blood Pressure 132/89 111/73 O2 Sat by Pulse 98 96 Oximetry - Reevaluation(s) Reevaluation #1: Medical records reviewed Reevaluation #2: Symptoms improved Reevaluation #3: Informed of results and questions answered Reevaluation #4: Was pt. sent in by a medical professional or institution (, PA, [employer] BRAKE LINING FINISHER, urgent care, hospital, or half-way...) When possible be specific @ -no Did you speak to anyone other than the patient for history (EMS, parent, family, police, friend...)? What history was obtained from this source @ -no Did you review nursing and triage notes (agree or disagree)? Why? @ -agree Are old charts reviewed (outside hosp., previous admission, EMS record, old EKG, old radiological studies, urgent care reports/EKG's, half-way records)? Report findings @ -yes Differential Diagnosis (chest pain, altered mental status, abdominal pain women, abdominal pain men, vaginal bleeding, weakness, fever, dyspnea, syncope, headache, dizziness, GI bleed, back pain, seizure, CVA, palpatations, mental health, musculoskeletal)? @ -prior EKG interpreted by me (3pts min.). @ -no X-rays interpreted by me (1pt min.). @ -no CT interpreted by me (1pt min.). @ -no U/S interpreted by me (1pt. min.). @ -no What testing was considered but not performed or refused? (CT, X-rays, U/S, labs)? Why? @ -none What meds were considered but not given or refused? Why? @ -none Did you discuss the management of the patient with other professionals (professionals i.e. , PA, [employer] BRAKE LINING FINISHER, lab, RT, psych nurse, social service manager, sewer hand, teacher, credit or loans officer, high risk case manager)? Give summary @ -no Was smoking cessation discussed for >3mins.? @ -no Was critical care preformed (if so, how long)? @ -no Were there social determinants of health that impacted care today? How? (Homelessness, low income, unemployed, alcoholism, drug addiction, transportation, low edu. Level, literacy, decrease access to med. care, custodial, rehab)? @ -none Was there de-escalation of care discussed even if they declined (Discuss DNR or withdrawal of care, Hospice)? DNR status @ -no What co-morbidities impacted this encounter? (DM, HTN, Smoking, COPD, CAD, Cancer, CVA, ARF, Chemo, Hep., AIDS, mental health diagnosis, sleep apnea, morbid obesity)? @ -none Was patient admitted / discharged? Hospital course, mention meds given and route, prescriptions, significant lab abnormalities, going to OR and other pertinent info. @ - 53 male to the ER for evaluation of multiple nonspecific complaints with no acute cause or finding. Patient can discharge home Discharged Undiagnosed new problem with uncertain prognosis? @ -no Drug Therapy requiring intensive monitoring for toxicity (Heparin, Nitro, Insulin, Cardizem)? @ -no Were any procedures done? @ -no Diagnosis/symptom? @ -Weakness Acute, or Chronic, or Acute on Chronic? @ -Acute Uncomplicated (without systemic symptoms) or Complicated (systemic symptoms)? @ -Complicated Side effects of treatment? @ -no Exacerbation, Progression, or Severe Exacerbation? @ -exacerbation Poses a threat to life or bodily function? How? (Chest pain, [place], [place], pneumonia, PE, COPD, DKA, ARF, appy, cholecystitis, CVA, Diverticulitis, Homicidal, Suicidal, threat to staff... and all critical care pts) @ -no Reevaluation #5: Differential Weakness: Hypoglycemia, shock, sepsis, hyponatremia, anemia, infection, [place], ETOH, adverse medicine reaction, overdose, stroke, this is not meant to be an all-inclusive list. Medical Decision Making - Medical Decision Making 53 male to the ER for evaluation of multiple nonspecific complaints with no acute cause or finding. Patient can discharge home Disposition Clinical Impression: Hypertension Disposition: HOME SELF-CARE Condition: Good Instructions (If sedation given, give patient instructions): Hypertension (ED) Is patient prescribed a controlled substance at d/c from ED?: No Referrals: Pricilla Simmons NPC [Primary Care Provider] - 1-2 days Time of Disposition: 23:45
[2024-01-20 00:07] VITALS: BP 111/73; PULSE 62; TEMP 98.1
== END 2024-01-19 23:55 | disposition home or self-care (01) ==
LOC: EC 23:01
DX: I10 Essential (primary) hypertension (principal); R53.1 Weakness; F17.200 Nicotine dependence, unspecified, uncomplicated; Z86.73 Personal history of transient ischemic attack (TIA), and cerebral infarction without residual deficits; Z88.8 Allergy status to other drugs, medicaments and biological substances; Z91.040 Latex allergy status; Z88.1 Allergy status to other antibiotic agents; Z88.2 Allergy status to sulfonamides; Z88.0 Allergy status to penicillin; Z91.09 Other allergy status, other than to drugs and biological substances
CPT/HCPCS: 99283

== ENCOUNTER → 2024-01-19 | Outpatient (CLI) | payer MEDICARE, OTHER ==
--- NOTE | 2024-01-20 07:49 | FL ---
EXAMINATION TYPE: FL UGI w esophagus DATE OF EXAM: 01/19/2024 9:19 AM COMPARISON: NONE CLINICAL HISTORY: Difficulty in swallowing. A total of 2 min 11 sec of fluoroscopic time was utilized during procedure and 57 images obtained. Preliminary view of the abdomen reveals a normal bowel gas pattern. Upper GI examination was performed according to the air contrast technique. Barium and effervescent crystal was swallowed without difficulty or delay. Esophageal peristalsis and motility are within no rmal limits. There is no evidence for esophagitis, intraluminal mass, hiatal hernia or gastroesophag eal reflux. The stomach has a normal appearance in terms of its size, shape and location. No gastri c filling defects or ulcer craters are seen. The duodenal bulb and sweep are also free of intralumin al lesion or ulcer crater. And single contrast cervical esophagram was also performed following the ingestion of thin liquid bar ium. There is no evidence for aspiration or penetration. No masses are seen. No filling defects ar e evident. IMPRESSION: Unremarkable evaluation.
== END | disposition home or self-care (01) ==
LOC: RADUSWWP 08:32
PROVIDERS: ATTEND Family Medicine
DX: K12.2 Cellulitis and abscess of mouth (principal); R13.12 Dysphagia, oropharyngeal phase
CPT/HCPCS: 74240

== ENCOUNTER 2024-01-20 14:19 | Emergency (ER) | payer MEDICARE, OTHER ==
--- NOTE | 2024-01-20 14:48 | ED ---
General Adult HPI - General Chief complaint: Chest Pain Stated complaint: chest pain Time Seen by Provider: 01/20/24 14:21 Source: patient Mode of arrival: EMS Limitations: no limitations - History of Present Illness Initial comments: Dictation was produced using [employer] dictation software. please excuse any grammatical, word or spelling errors. Chief Complaint: 53-year-old male well-known to the emergency department presents to the ER for chest pain History of Present Illness: Patient is a 53-year-old male who presents emergency department for chest pain. Patient is well-known to the emergency department for myriad of reasons. States that he is here today for chest pain. He states that he had chest pain for years. He does have known history of coronary artery disease. Patient states that it is associated diaphoresis and nausea. The ROS documented in this emergency department record has been reviewed and confirmed by me. Those systems with pertinent positive or negative responses have been documented in the HPI. All other systems are other negative and/or noncontributory. - Related Data Home Medications Medication Instructions Recorded Confirmed Nitroglycerin Sl Tabs [Nitrostat] 0.4 mg SL Q5M PRN 08/20/23 12/21/23 metFORMIN HCL 1,000 mg PO BID 10/06/23 12/21/23 Ibuprofen [Motrin] 800 mg PO Q8H PRN 12/06/23 12/21/23 Insulin Glargine,Hum.rec.anlog 10 units SQ HS 12/06/23 12/21/23 [Lantus Solostar Pen] Ondansetron Odt [Zofran ODT] 4 mg PO BID PRN 12/06/23 12/21/23 glipiZIDE [Glucotrol] 5 mg PO AC-BID 12/21/23 12/21/23 Previous Rx's Medication Instructions Recorded ARIPiprazole [Abilify] 15 mg PO DAILY 30 Days #30 tab 12/13/23 Albuterol Nebulized [Ventolin 2.5 mg INHALATION RT-Q6H PRN #1 ml 12/13/23 Nebulized] Aspirin EC [Ecotrin Low Dose] 81 mg PO DAILY 30 Days #30 tab 12/13/23 Atorvastatin [Lipitor] 10 mg PO HS 30 Days #30 tab 12/13/23 Budesonide-Formot 160-4.5 Mcg 2 puff INHALATION RT-BID 30 Days 12/13/23 [Symbicort 160-4.5 Mcg Inhaler] #1 each Cholecalciferol (Vitamin D3) 50 mcg PO DAILY 30 Days #30 tab 12/13/23 [Vitamin D3 (50 Mcg = 2000 Iu)] Esomeprazole Magnesium [NexIUM] 40 mg PO DAILY 30 Days #30 cap 12/13/23 Famotidine [Pepcid] 20 mg PO BID PRN 30 Days #60 tab 12/13/23 Ipratropium-Albuterol Nebulize 3 ml INHALATION RT-QID PRN 30 Days 12/13/23 [Duoneb 0.5 mg-3 mg/3 ml Soln] #1 each Melatonin 5 mg PO HS 30 Days #30 tab 12/13/23 Mirtazapine [Remeron] 15 mg PO HS 30 Days #30 tab 12/13/23 Montelukast [Singulair] 10 mg PO HS 30 Days #30 tab 12/13/23 Nicotine 14Mg/24Hr Patch [Habitrol] 1 patch TRANSDERM DAILY 14 Days 12/13/23 #14 patch Sertraline [Zoloft] 100 mg PO HS 30 Days #30 tab 12/13/23 hydrOXYzine pamoate [Vistaril] 25 mg PO DAILY PRN 30 Days #30 cap 12/13/23 lisinopriL [Zestril] 2.5 mg PO DAILY 30 Days #30 tab 12/13/23 Docusate [Colace] 100 mg PO BID PRN 3 Days #6 capsule 12/22/23 Famotidine [Pepcid] 20 mg PO BID PRN #40 tab 12/22/23 Lidocaine 4% Patch 1 patch TOPICAL DAILY #3 patch 12/22/23 Nicotine Gum (Polacrilex) 2 mg BUCCAL Q8HR PRN 3 Days #6 12/22/23 [Nicorette] pieceofgum Ondansetron Odt [Zofran Odt] 4 mg PO Q8HR PRN #10 tab 01/04/24 Sulfamethox-Tmp 800-160Mg [Bactrim 1 each PO Q12HR #14 tab 01/09/24 DS 800-160 mg] Nitrofurantoin Monohyd/M-Cryst 100 mg PO Q12HR #14 cap 01/13/24 [Macrobid] Nitrofurantoin Monohyd/M-Cryst 100 mg PO Q12HR #10 cap 01/17/24 [Macrobid] Allergies Allergy/AdvReac Type Severity Reaction Status Date / Time dicyclomine HCl [From Bentyl] Allergy Unknown Dyspnea Verified 01/20/24 14:30 latex Allergy Unknown Rash/Hives Verified 01/20/24 14:30 Benzoate Analogues Allergy Unknown Verified 01/20/24 14:30 nitrofurantoin Allergy Nausea Verified 01/20/24 14:30 [From Macrobid] Penicillins Allergy "[place] Verified 01/20/24 14:30 funny" adhesive AdvReac Unknown Itching Verified 01/20/24 14:30 ciprofloxacin AdvReac Unknown Nausea Verified 01/20/24 14:30 Macrolide Antibiotics AdvReac Unknown Nausea Verified 01/20/24 14:30 sulfamethoxazole AdvReac Unknown Unknown Verified 01/20/24 14:30 [From Bactrim] trimethoprim [From Bactrim] AdvReac Unknown Unknown Verified 01/20/24 14:30 diphenhydramine AdvReac Confusion Verified 01/17/24 00:41 [From Benadryl] Review of Systems ROS Statement: Those systems with pertinent positive or pertinent negative responses have been documented in the HPI. ROS Other: All systems not noted in ROS Statement are negative. Past Medical History Past Medical History: Asthma, Chest Pain / Angina, COPD, CVA/TIA, Diabetes Mellitus, GERD/Reflux, Hearing Disorder / Deafness, Hyperlipidemia, Hypertension, Liver Disease, Osteoarthritis (OA), Pneumonia, Seizure Disorder, Sleep Apnea/CPAP/BIPAP Additional Past Medical History / Comment(s): states CVA at 35 yrs old, no weakness @ this time. states seizure at 35 yrs old., DDD- back & neck pain., carpal tunnel syndrome. Has [employer] public guardian. History of Any Multi-Drug Resistant Organisms: None Reported Past Surgical History: Heart Catheterization, Orthopedic Surgery Additional Past Surgical History / Comment(s): Cysts removed, left thumb surgery, colonoscopy 08/24/2019. Skin tags removed from both eyes. Past Anesthesia/Blood Transfusion Reactions: Unable to Obtain, Motion Sickness, Postoperative Nausea & Vomiting (PONV) Past Psychological History: Anxiety, Bipolar, Depression, Schizophrenia Smoking Status: Current every day smoker Past Alcohol Use History: None Reported Past Drug Use History: None Reported - Past Family History Brother(s) Family Medical History: Diabetes Mellitus Additional Family Medical History / Comment(s): Patient has 2 brothers. One from complications from diabetes. The second is alive with diabetes. Sister(s) Family Medical History: Cancer Additional Family Medical History / Comment(s): Patient has one sister with breast cancer. Patient does not have any children. Father Family Medical History: Cancer Additional Family Medical History / Comment(s): Father in his 40s or 50s from colon cancer. Mother Family Medical History: Cancer Additional Family Medical History / Comment(s): Mother at age 68 from lung cancer. General Exam - General Exam Comments Initial Comments: PHYSICAL EXAM: General Impression: Alert and oriented x3, not in acute distress HEENT: Normocephalic atraumatic, extra-ocular movements intact, pupils equal and reactive to light bilaterally, mucous membranes moist. Cardiovascular: Heart regular rate and rhythm Chest: Able to complete full sentences, no retractions, no tachypnea Abdomen: abdomen soft, non-tender, non-distended, no organomegaly Musculoskeletal: Pulses present and equal in all extremities, no peripheral edema Motor: no focal deficits noted Neurological: CN II-XII grossly intact, no focal motor or sensory deficits noted Skin: Intact with no visualized rashes Psych: Normal affect and mood Limitations: no limitations Course Vital Signs 01/20/24 01/20/24 01/20/24 14:21 14:43 15:55 Temperature 99.1 F 98.3 F 98.5 F Pulse Rate 69 65 66 Respiratory 18 17 18 Rate Blood Pressure 126/83 118/82 118/79 O2 Sat by Pulse 98 98 97 Oximetry 01/20/24 18:09 Temperature 98.8 F Pulse Rate 60 Respiratory 18 Rate Blood Pressure 109/80 O2 Sat by Pulse 97 Oximetry EKG Findings - EKG Comments: EKG Findings:: My EKG interpretation: Ventricular rate 65, sinus rhythm,. 134, QRS 105, QTc 415. No [place] prolongation, no QTC prolongation, no ST or T-wave changes noted. EKG compared to January 15, 2024 showing no changes. Overall, this EKG is unremarkable Medical Decision Making - Medical Decision Making Was pt. sent in by a medical professional or institution (, PA, HOUSEKEEPING COORDINATOR, urgent care, hospital, or longterm...) When possible be specific @ -No Did you speak to anyone other than the patient for history (EMS, parent, family, police, friend...)? What history was obtained from this source @ -No Did you review nursing and triage notes (agree or disagree)? Why? @ -Prior cardiology notes reviewed showing that patient was seen here last micheal h December 21, 2023 and discharged after being cleared by cardiology Were old charts reviewed (outside hosp., previous admission, EMS record, old EKG, old radiological studies, urgent care reports/EKG's, longterm records)? Report findings @ -No old charts were reviewed Differential Diagnosis (chest pain, altered mental status, abdominal pain women, abdominal pain men, vaginal bleeding, musculoskeletal, weakness, fever, dyspnea, syncope, headache, dizziness, GI bleed, back pain, seizure, CVA, palpatations, mental health)? @ -Differential Chest Pain: Stable Angina, Unstable Angina, STEMI, NSTEMI Aortic Dissection, Pneumothorax, Musculoskeletal, Esophageal Spasm GERD, Cholecystitis, Pancreatitis, Zoster, this is not meant to be an all-inclusive list. EKG interpreted by me (3pts min.). @ -See above X-rays interpreted by me (1pt min.). @ -Chest x-ray is nonacute CT interpreted by me (1pt min.). @ -None done U/S interpreted by me (1pt. min.). @ -None done What testing was considered but not performed or refused? (CT, X-rays, U/S, labs)? Why? @ -None What meds were considered but not given or refused? Why? @ -None Was smoking cessation discussed for >3mins.? @ -No Were there social determinants of health that impacted care today? How? (Homelessness, low income, unemployed, alcoholism, drug addiction, transportation, low edu. Level, literacy, decrease access to med. care, prison, rehab)? @ -No Was there de-escalation of care discussed even if they declined (Discuss DNR or withdrawal of care, Hospice)? DNR status @ -No What co-morbidities impacted this encounter? (DM, HTN, Smoking, COPD, CAD, Cancer, CVA, ARF, Chemo, Hep., AIDS, mental health diagnosis, sleep apnea, m orbid obesity)? @ -Coronary artery disease Was patient admitted / discharged? Hospital course, mention meds given and route, prescriptions, significant lab abnormalities, going to OR and other pertinent info. @ -53-year-old male presents to the emergency department for acute on chronic chest pain. Vital signs stable. Laboratory evaluation obtained including serial troponins found to be negative. Patient reevaluated at bedside 6:30 PM found to be stable condition. Patient given aspirin. Discharged advised follow-up with primary care doctor and display fabrication supervisor. Did you discuss the management of the patient with other professionals (professionals i.e. , PA, HOUSEKEEPING COORDINATOR, lab, RT, psych nurse, social human services assistants, supervisor mapping, teacher, chief technology officer, manager of case management)? Give summary @ -No Was critical care preformed (if so, how long)? @ -No Undiagnosed new problem with uncertain prognosis? @ -No Drug Therapy requiring intensive monitoring for toxicity (Heparin, Nitro, Insulin, Cardizem)? @ -No Were any procedures done? @ -No Diagnosis/symptom? Acute, or Chronic, or Acute on Chronic? Uncomplicated ( without systemic symptoms) or Complicated (systemic symptoms)? @ -Chest pain Side effects of treatment? @ -No Exacerbation, Progression, or Severe Exacerbation? @ -No Poses a threat to life or bodily function? How? (Chest pain, [place], [place], pneumonia, PE, COPD, DKA, ARF, appy, cholecystitis, CVA, Diverticulitis, Homicidal, Suicidal, threat to staff... and all critical care pts) @ -No - Lab Data Result diagrams: 01/20/24 14:39 01/20/24 14:39 Lab Results 01/20/24 01/20/24 01/20/24 Range/Units 14:39 14:39 14:39 WBC 7.4 (3.8-10.6) k/uL RBC 4.80 (4.30-5.90) m/uL Hgb 15.2 (13.0-17.5) gm/dL Hct 43.4 (39.0-53.0) % MCV 90.5 (80.0-100.0) fL MCH 31.7 (25.0-35.0) pg MCHC 35.0 (31.0-37.0) g/dL RDW 13.4 (11.5-15.5) % Plt Count 249 (150-450) k/uL MPV 7.3 Neutrophils % 70 % Lymphocytes % 19 % Monocytes % 5 % Eosinophils % 4 % Basophils % 0 % Neutrophils # 5.2 (1.3-7.7) k/uL Lymphocytes # 1.4 (1.0-4.8) k/uL Monocytes # 0.4 (0-1.0) k/uL Eosinophils # 0.3 (0-0.7) k/uL Basophils # 0.0 (0-0.2) k/uL PT 10.1 (10.0-12.5) sec INR 0.9 (<1.2) APTT 23.6 (22.0-30.0) sec Sodium 139 (137-145) mmol/L Potassium 4.1 (3.5-5.1) mmol/L Chloride 109 H (98-107) mmol/L Carbon Dioxide 25 (22-30) mmol/L Anion Gap 5 mmol/L BUN 16 (9-20) mg/dL Creatinine 0.97 (0.66-1.25) mg/dL Est GFR (CKD-EPI)AfAm >90 (>60 ml/min/1.73 sqM) Est GFR (CKD-EPI)NonAf 89 (>60 ml/min/1.73 sqM) Glucose 91 (74-99) mg/dL Calcium 9.6 (8.4-10.2) mg/dL Magnesium 1.8 (1.6-2.3) mg/dL Total Bilirubin 0.5 (0.2-1.3) mg/dL AST 36 (17-59) U/L ALT 48 (4-49) U/L Alkaline Phosphatase 74 (38-126) U/L Troponin I (0.000-0.034) ng/mL Total Protein 6.5 (6.3-8.2) g/dL Albumin 4.4 (3.5-5.0) g/dL 01/20/24 01/20/24 Range/Units 14:39 17:40 WBC (3.8-10.6) k/uL RBC (4.30-5.90) m/uL Hgb (13.0-17.5) gm/dL Hct (39.0-53.0) % MCV (80.0-100.0) fL MCH (25.0-35.0) pg MCHC (31.0-37.0) g/dL RDW (11.5-15.5) % Plt Count (150-450) k/uL MPV Neutrophils % % Lymphocytes % % Monocytes % % Eosinophils % % Basophils % % Neutrophils # (1.3-7.7) k/uL Lymphocytes # (1.0-4.8) k/uL Monocytes # (0-1.0) k/uL Eosinophils # (0-0.7) k/uL Basophils # (0-0.2) k/uL PT (10.0-12.5) sec INR (<1.2) APTT (22.0-30.0) sec Sodium (137-145) mmol/L Potassium (3.5-5.1) mmol/L Chloride (98-107) mmol/L Carbon Dioxide (22-30) mmol/L Anion Gap mmol/L BUN (9-20) mg/dL Creatinine (0.66-1.25) mg/dL Est GFR (CKD-EPI)AfAm (>60 ml/min/1.73 sqM) Est GFR (CKD-EPI)NonAf (>60 ml/min/1.73 sqM) Glucose (74-99) mg/dL Calcium (8.4-10.2) mg/dL Magnesium (1.6-2.3) mg/dL Total Bilirubin (0.2-1.3) mg/dL AST (17-59) U/L ALT (4-49) U/L Alkaline Phosphatase (38-126) U/L Troponin I <0.012 <0.012 (0.000-0.034) ng/mL Total Protein (6.3-8.2) g/dL Albumin (3.5-5.0) g/dL Disposition Clinical Impression: Chest pain Disposition: HOME SELF-CARE Condition: Good Instructions (If sedation given, give patient instructions): Chest Pain (ED) Is patient prescribed a controlled substance at d/c from ED?: No Referrals: Pricilla Simmons NPC [REFERRING] - 1-2 days Time of Disposition: 18:28
[2024-01-20 14:49] LABS: Basophils % (A) 0 %; Eosinophils # (A) 0.3 k/uL (0-0.7); Eosinophils % (A) 4 %; HCT 43.4 % (39.0-53.0); HGB 15.2 gm/dL (13.0-17.5); Lymphocytes # (A) 1.4 k/uL (1.0-4.8); Lymphocytes % (A) 19 %; MCH 31.7 pg (25.0-35.0); MCV 90.5 fL (80.0-100.0); Mean Platelet Volume 7.3; Monocytes # (A) 0.4 k/uL (0-1.0); Monocytes % (A) 5 %; Neutrophils # (A) 5.2 k/uL (1.3-7.7); Neutrophils % (A) 70 %; Platelet Count 249 k/uL (150-450); RDW 13.4 % (11.5-15.5); WBC 7.4 k/uL (3.8-10.6)
[2024-01-20 14:57] LABS: INR 0.9 (<1.2); Partial Thromboplastin Time 23.6 sec (22.0-30.0); Prothrombin Time 10.1 sec (10.0-12.5)
[2024-01-20 15:04] LABS: ALT 48 U/L (4-49); AST 36 U/L (17-59); African American GFR (CKD) >90 (>60 ml/min/1.73 sqM); Albumin 4.4 g/dL (3.5-5.0); Alkaline Phosphatase 74 U/L (38-126); Anion Gap 5 mmol/L; Blood Urea Nitrogen 16 mg/dL (9-20); Calcium 9.6 mg/dL (8.4-10.2); Carbon Dioxide 25 mmol/L (22-30); Chloride 109 mmol/L (98-107); Glucose 91 mg/dL (74-99); Magnesium 1.8 mg/dL (1.6-2.3); Non-African American GFR(CKD) 89 (>60 ml/min/1.73 sqM); Potassium 4.1 mmol/L (3.5-5.1); Sodium 139 mmol/L (137-145); Total Bilirubin 0.5 mg/dL (0.2-1.3); Total Protein 6.5 g/dL (6.3-8.2)
--- NOTE | 2024-01-20 15:12 | XR ---
EXAMINATION TYPE: XR chest 2V DATE OF EXAM: 01/20/2024 COMPARISON: 01/15/2024 HISTORY: Chest pain TECHNIQUE: Frontal and lateral views of the chest are obtained. FINDINGS: There is no focal air space opacity. No evidence for pneumothorax. No pleural effusion. The cardiac silhouette size is within normal limits. The osseous structures are grossly intact. IMPRESSION: 1. No acute cardiopulmonary process.
[2024-01-20] MEDS: ASPIRIN 325 MG TAB PO STA (15:15)
[2024-01-20 15:57] VITALS: RESP 18
[2024-01-20] MEDS: traMADol 50 MG STARTER PACK 3 TAB BTL PO STA (18:49)
[2024-01-20 18:55] VITALS: BP 112/85; PULSE 61; TEMP 99.1
== END 2024-01-20 19:04 | disposition home or self-care (01) ==
LOC: EC 14:19
DX: R07.9 Chest pain, unspecified (principal); F17.200 Nicotine dependence, unspecified, uncomplicated; I25.10 Atherosclerotic heart disease of native coronary artery without angina pectoris; Z88.0 Allergy status to penicillin; Z88.1 Allergy status to other antibiotic agents; Z88.2 Allergy status to sulfonamides; Z88.8 Allergy status to other drugs, medicaments and biological substances; Z91.040 Latex allergy status; Z86.73 Personal history of transient ischemic attack (TIA), and cerebral infarction without residual deficits
CPT/HCPCS: 36415; 71046; 80053; 83735; 84484; 85025; 85610; 85730; 93005; 99285

== ENCOUNTER 2024-01-21 23:01 | Emergency (ER) | payer MEDICARE, OTHER ==
[2024-01-21 23:09] VITALS: TEMP 97.5
[2024-01-22] MEDS: ONDANSETRON ODT 4 MG TAB PO STA (01:08)
[2024-01-22 01:13] LABS: Glucose,Whole Blood 150 mg/dL (70-110)
[2024-01-22 01:29] LABS: Appearance,Urine Clear (Clear); Bilirubin,Urine Negative (Negative); Blood,Urine Negative (Negative); Color,Urine Colorless; Glucose,Urine (UA) Negative (Negative); Ketones,Urine Negative (Negative); Leukocyte Esterase,Urine Negative (Negative); Nitrite,Urine Negative (Negative); PH, Urine 5.5 (5.0-8.0); Protein,Urine Negative (Negative); Specific Gravity,Urine 1.001 (1.001-1.035); Urobilinogen,Urine <2.0 mg/dL (<2.0)
--- NOTE | 2024-01-22 02:18 | ED ---
Recheck HPI - General Chief Complaint: Recheck/Abnormal Lab/Rx Stated Complaint: high blood pressure Time Seen by Provider: 01/21/24 23:59 Source: patient Mode of arrival: ambulatory Limitations: no limitations - History of Present Illness Initial Comments: 53-year-old male presenting with chief complaint of elevated blood pressure. Patient has had multiple extensive workups for similar complaints. He states that earlier his blood pressure was high. He also states that his glucose was over 300 earlier. He admits to nausea. No vomiting. No chest pain or difficulty breathing. No abdominal pain. - Related Data Home Medications Medication Instructions Recorded Confirmed Nitroglycerin Sl Tabs [Nitrostat] 0.4 mg SL Q5M PRN 08/20/23 12/21/23 metFORMIN HCL 1,000 mg PO BID 10/06/23 12/21/23 Ibuprofen [Motrin] 800 mg PO Q8H PRN 12/06/23 12/21/23 Insulin Glargine,Hum.rec.anlog 10 units SQ HS 12/06/23 12/21/23 [Lantus Solostar Pen] Ondansetron Odt [Zofran ODT] 4 mg PO BID PRN 12/06/23 12/21/23 glipiZIDE [Glucotrol] 5 mg PO AC-BID 12/21/23 12/21/23 Previous Rx's Medication Instructions Recorded ARIPiprazole [Abilify] 15 mg PO DAILY 30 Days #30 tab 12/13/23 Albuterol Nebulized [Ventolin 2.5 mg INHALATION RT-Q6H PRN #1 ml 12/13/23 Nebulized] Aspirin EC [Ecotrin Low Dose] 81 mg PO DAILY 30 Days #30 tab 12/13/23 Atorvastatin [Lipitor] 10 mg PO HS 30 Days #30 tab 12/13/23 Budesonide-Formot 160-4.5 Mcg 2 puff INHALATION RT-BID 30 Days 12/13/23 [Symbicort 160-4.5 Mcg Inhaler] #1 each Cholecalciferol (Vitamin D3) 50 mcg PO DAILY 30 Days #30 tab 12/13/23 [Vitamin D3 (50 Mcg = 2000 Iu)] Esomeprazole Magnesium [NexIUM] 40 mg PO DAILY 30 Days #30 cap 12/13/23 Famotidine [Pepcid] 20 mg PO BID PRN 30 Days #60 tab 12/13/23 Ipratropium-Albuterol Nebulize 3 ml INHALATION RT-QID PRN 30 Days 12/13/23 [Duoneb 0.5 mg-3 mg/3 ml Soln] #1 each Melatonin 5 mg PO HS 30 Days #30 tab 12/13/23 Mirtazapine [Remeron] 15 mg PO HS 30 Days #30 tab 12/13/23 Montelukast [Singulair] 10 mg PO HS 30 Days #30 tab 12/13/23 Nicotine 14Mg/24Hr Patch [Habitrol] 1 patch TRANSDERM DAILY 14 Days 12/13/23 #14 patch Sertraline [Zoloft] 100 mg PO HS 30 Days #30 tab 12/13/23 hydrOXYzine pamoate [Vistaril] 25 mg PO DAILY PRN 30 Days #30 cap 12/13/23 lisinopriL [Zestril] 2.5 mg PO DAILY 30 Days #30 tab 12/13/23 Docusate [Colace] 100 mg PO BID PRN 3 Days #6 capsule 12/22/23 Famotidine [Pepcid] 20 mg PO BID PRN #40 tab 12/22/23 Lidocaine 4% Patch 1 patch TOPICAL DAILY #3 patch 12/22/23 Nicotine Gum (Polacrilex) 2 mg BUCCAL Q8HR PRN 3 Days #6 12/22/23 [Nicorette] pieceofgum Ondansetron Odt [Zofran Odt] 4 mg PO Q8HR PRN #10 tab 01/04/24 Sulfamethox-Tmp 800-160Mg [Bactrim 1 each PO Q12HR #14 tab 01/09/24 DS 800-160 mg] Nitrofurantoin Monohyd/M-Cryst 100 mg PO Q12HR #14 cap 01/13/24 [Macrobid] Nitrofurantoin Monohyd/M-Cryst 100 mg PO Q12HR #10 cap 01/17/24 [Macrobid] Allergies Allergy/AdvReac Type Severity Reaction Status Date / Time dicyclomine HCl [From Bentyl] Allergy Unknown Dyspnea Verified 01/21/24 23:07 latex Allergy Unknown Rash/Hives Verified 01/21/24 23:07 Benzoate Analogues Allergy Unknown Verified 01/21/24 23:07 nitrofurantoin Allergy Nausea Verified 01/21/24 23:07 [From Macrobid] Penicillins Allergy "[place] Verified 01/21/24 23:07 funny" adhesive AdvReac Unknown Itching Verified 01/21/24 23:07 ciprofloxacin AdvReac Unknown Nausea Verified 01/21/24 23:07 Macrolide Antibiotics AdvReac Unknown Nausea Verified 01/21/24 23:07 sulfamethoxazole AdvReac Unknown Unknown Verified 01/21/24 23:07 [From Bactrim] trimethoprim [From Bactrim] AdvReac Unknown Unknown Verified 01/21/24 23:07 diphenhydramine AdvReac Confusion Verified 01/21/24 23:07 [From Benadryl] Review of Systems ROS Statement: Those systems with pertinent positive or pertinent negative responses have been documented in the HPI. ROS Other: All systems not noted in ROS Statement are negative. Past Medical History Past Medical History: Asthma, Chest Pain / Angina, COPD, CVA/TIA, Diabetes Mellitus, GERD/Reflux, Hearing Disorder / Deafness, Hyperlipidemia, Hypertension, Liver Disease, Osteoarthritis (OA), Pneumonia, Seizure Disorder, Sleep Apnea/CPAP/BIPAP Additional Past Medical History / Comment(s): states CVA at 35 yrs old, no weakness @ this time. states seizure at 35 yrs old., DDD- back & neck pain., carpal tunnel syndrome. Has [employer] public guardian. History of Any Multi-Drug Resistant Organisms: None Reported Past Surgical History: Heart Catheterization, Orthopedic Surgery Additional Past Surgical History / Comment(s): Cysts removed, left thumb surgery, colonoscopy 08/24/2019. Skin tags removed from both eyes. Past Anesthesia/Blood Transfusion Reactions: Unable to Obtain, Motion Sickness, Postoperative Nausea & Vomiting (PONV) Past Psychological History: Anxiety, Bipolar, Depression, Schizophrenia Smoking Status: Current every day smoker Past Alcohol Use History: None Reported Past Drug Use History: None Reported - Past Family History Brother(s) Family Medical History: Diabetes Mellitus Additional Family Medical History / Comment(s): Patient has 2 brothers. One from complications from diabetes. The second is alive with diabetes. Sister(s) Family Medical History: Cancer Additional Family Medical History / Comment(s): Patient has one sister with breast cancer. Patient does not have any children. Father Family Medical History: Cancer Additional Family Medical History / Comment(s): Father in his 40s or 50s from colon cancer. Mother Family Medical History: Cancer Additional Family Medical History / Comment(s): Mother at age 68 from lung cancer. General Exam Limitations: no limitations General appearance: alert, in no apparent distress Head exam: Present: atraumatic, normocephalic Eye exam: Present: normal appearance, EOMI Neck exam: Present: normal inspection. Absent: meningismus Respiratory exam: Absent: respiratory distress Cardiovascular Exam: Present: regular rate Neurological exam: Present: alert, oriented X3 Psychiatric exam: Present: normal affect, normal mood Skin exam: Present: warm, dry Course Vital Signs 01/21/24 23:07 Temperature 97.5 F L Pulse Rate 83 Respiratory 16 Rate Blood Pressure 125/85 O2 Sat by Pulse 99 Oximetry Medical Decision Making - Medical Decision Making Was pt. sent in by a medical professional or institution (SE[facility] [place], SCHEDULING ASSISTANT, urgent care, hospital, or halfway...) When possible be specific @ -No Did you speak to anyone other than the patient for history (EMS, parent, family, police, friend...)? What history was obtained from this source @ -No Did you review nursing and triage notes (agree or disagree)? Why? @ -I reviewed and agree with nursing and triage notes Were old charts reviewed (outside hosp., previous admission, EMS record, old EKG, old radiological studies, urgent care reports/EKG's, halfway records)? Report findings @ -A multitude of other visits were reviewed Differential Diagnosis (chest pain, altered mental status, abdominal pain women, abdominal pain men, vaginal bleeding, weakness, fever, dyspnea, syncope, headache, dizziness, GI bleed, back pain, seizure, CVA, palpatations, mental health, musculoskeletal)? @ -Differential includes hyperglycemia, DKA, user error, this is not an all- inclusive list EKG interpreted by me (3pts min.). @ -As above X-rays interpreted by me (1pt min.). @ -None done CT interpreted by me (1pt min.). @ -None done U/S interpreted by me (1pt. min.). @ -None done What testing was considered but not performed or refused? (CT, X-rays, U/S, labs)? Why? @ -None What meds were considered but not given or refused? Why? @ -None Did you discuss the management of the patient with other professionals (professionals i.e. Dr., PA, SCHEDULING ASSISTANT, lab, RT, psych nurse, professor of social work, video game tester, teacher, booking officer, caser shoe parts)? Give summary @ -No Was smoking cessation discussed for >3mins.? @ -No Was critical care preformed (if so, how long)? @ -No Were there social determinants of health that impacted care today? How? (Homelessness, low income, unemployed, alcoholism, drug addiction, transportation, low edu. Level, literacy, decrease access to med. care, [facility], rehab)? @ -No Was there de-escalation of care discussed even if they declined (Discuss DNR or withdrawal of care, Hospice)? DNR status @ -No What co-morbidities impacted this encounter? (DM, HTN, Smoking, COPD, CAD, Cancer, CVA, ARF, Chemo, Hep., AIDS, mental health diagnosis, sleep apnea, morbid obesity)? @ -None Was patient admitted / discharged? Hospital course, mention meds given and route, prescriptions, significant lab abnormalities, going to OR and other pertinent info. @ -53-year-old male presenting with chief complaint of elevated blood pressure and glucose. Blood pressure upon arrival is 125/85. After several hours blood pressure is 124/80. He is given Zofran for his nausea. Urine shows no infectious process or ketonuria. Blood glucose is 150. Discharged. Follow-up with PCP. Report back to ER with any new or worsening symptoms. Discussed return parameters and answered all questions. Patient conveyed verbal understanding and agreed to the plan. I discussed this case in detail with my attending Dr. Smith Undiagnosed new problem with uncertain prognosis? @ -No Drug Therapy requiring intensive monitoring for toxicity (Heparin, Nitro, Insulin, Cardizem)? @ -No Were any procedures done? @ -No Diagnosis/symptom? @ -Hyperglycemia Acute, or Chronic, or Acute on Chronic? @ -Acute Uncomplicated (without systemic symptoms) or Complicated (systemic symptoms)? @ -Uncomplicated Side effects of treatment? @ -No Exacerbation, Progression, or Severe Exacerbation? @ -No Poses a threat to life or bodily function? How? (Chest pain, [place], [place], pneumonia, PE, COPD, DKA, ARF, appy, cholecystitis, CVA, Diverticulitis, Homicidal, Suicidal, threat to staff... and all critical care pts) @ -Unlikely - Lab Data Lab Results 01/22/24 01/22/24 Range/Units 01:05 01:12 POC Glucose (mg/dL) 150 H (70-110) mg/dL POC Glu Financial Director ID Han lozano Urine Color Colorless Urine Appearance Clear (Clear) Urine pH 5.5 (5.0-8.0) Ur Specific [place] 1.001 (1.001-1.035) Urine Protein Negative (Negative) Urine Glucose (UA) Negative (Negative) Urine Ketones Negative (Negative) Urine Blood Negative (Negative) Urine Nitrite Negative (Negative) Urine Bilirubin Negative (Negative) Urine Urobilinogen <2.0 (<2.0) mg/dL Ur Leukocyte Esterase Negative (Negative) Disposition Clinical Impression: Hyperglycemia Disposition: HOME SELF-CARE Condition: Good Instructions (If sedation given, give patient instructions): Managing Diabetes During Sick Days (ED), Diabetic Hyperglycemia (ED) Additional Instructions: Follow-up with PCP. Report back to ER with any new or worsening symptoms. Is patient prescribed a controlled substance at d/c from ED?: No Referrals: Ramya Saul MD [Primary Care Provider] - 1-2 days Time of Disposition: 02:17
[2024-01-22 02:26] VITALS: BP 124/80; PULSE 80; RESP 18
== END 2024-01-22 02:42 | disposition home or self-care (01) ==
LOC: EC 23:01
DX: E11.65 Type 2 diabetes mellitus with hyperglycemia (principal); F17.200 Nicotine dependence, unspecified, uncomplicated; Z79.4 Long term (current) use of insulin; Z79.84 Long term (current) use of oral hypoglycemic drugs; Z88.8 Allergy status to other drugs, medicaments and biological substances; Z91.040 Latex allergy status; Z88.0 Allergy status to penicillin; Z88.1 Allergy status to other antibiotic agents; Z91.09 Other allergy status, other than to drugs and biological substances; Z88.2 Allergy status to sulfonamides; Z86.73 Personal history of transient ischemic attack (TIA), and cerebral infarction without residual deficits
CPT/HCPCS: 36415; 81003; 99283

== ENCOUNTER 2024-02-01 12:21 | Emergency (ER) | payer MEDICARE, MEDICAID ==
[2024-02-01] MEDS ORDERED: ONDANSETRON 4 MG/2 ML VIAL ONE (14:41)
[2024-02-01] MEDS ORDERED: HYDROmorphone 1 MG/ML 1 ML SYRINGE ONE (16:28)
[2024-02-01] MEDS ORDERED: ONDANSETRON 4 MG ODT STARTER PACK 2 TAB BTL ONE (16:29)
[2024-02-01] MEDS ORDERED: ONDANSETRON ODT 4 MG TAB ONE (16:59)
[2024-02-01] MEDS ORDERED: SODIUM CHLORIDE 0.9% 1,000 ML BAG ONE (23:59)
--- NOTE | 2024-02-25 15:56 | US ---
EXAMINATION TYPE: US venous doppler duplex LE RT DATE OF EXAM: 02/24/2024 8:08 AM COMPARISON: NONE CLINICAL INDICATION: Male, 53 years old with history of Right leg pain; SIDE PERFORMED: Right TECHNIQUE: The lower extremity deep venous system is examined utilizing real time linear array sonog ciara with graded compression, doppler sonography and color-flow sonography. VESSELS IMAGED: Common Femoral Vein Deep Femoral Vein Greater Saphenous Vein * Femoral Vein Popliteal Vein Small Saphenous Vein * Proximal Calf Veins (* superficial vessels) Right Leg: Negative for DVT IMPRESSION: No evidence for DVT within the right lower extremity imaged from the groin to the upper calf.
== END 2024-02-01 17:00 | disposition home or self-care (01) ==
LOC: EC 12:21
CPT/HCPCS: 80053; 81003; 83605; 83735; 84100; 85025; 87636; 94640; 96374; 96375; 99285

== ENCOUNTER 2024-02-06 00:22 | Emergency (ER) | payer MEDICARE ==
[2024-02-06] MEDS ORDERED: MAG HYDROX/AL HYDROX/SIMETH 30 ML CUP ONE (03:08)
[2024-02-06] MEDS ORDERED: LIDOCAINE VISCOUS 2% 15 ML CUP ONE (03:10)
[2024-02-06] MEDS ORDERED: HYOSCYAMINE ELIXIR 250 MCG/10 ML BTL ONE (03:10)
[2024-02-06] MEDS ORDERED: ONDANSETRON ODT 4 MG TAB ONE (03:11)
== END 2024-02-06 03:44 | disposition home or self-care (01) ==
LOC: EC 00:22
DX: R11.0 Nausea (principal)
CPT/HCPCS: 99283

== ENCOUNTER 2024-02-09 07:00 | Day surgery (SDC) | payer MEDICARE, OTHER ==
[2024-02-09] MEDS ORDERED: PROPOFOL 10 MG/ML 20 ML VIAL IV ONE (07:05)
--- NOTE | 2024-03-01 16:24 | OP ---
OPERATIVE REPORT DATE OF SERVICE : 02/09/2024 REQUESTING PHYSICIAN: Dr. Angel. BRIEF HISTORY: The patient is a 53-year-old white male, scheduled for an upper endoscopy as well as colonoscopy as a part of evaluation of severe heartburn, history of GERD, intermittent diarrhea and prior history of colon polyps. He also had family history of colon cancer, diagnosed in his father at age 50. PROCEDURES PERFORMED: 1. EGD with biopsy. 2. Colonoscopy with biopsy. ANESTHESIA: IV sedation per Anesthesia. DESCRIPTION OF PROCEDURE: After informed consent was obtained from the patient, he was brought into the endoscopy unit. IV conscious sedation was administered by Anesthesia and continuous monitoring. Initially, upper endoscopy was done. The Olympus GIF-180 video endoscope was inserted into the mouth, esophagus, intubated without any difficulty, and was gradually advanced into the stomach and duodenum and carefully examined. Bulb and the second part of the duodenum appeared normal. There was mild duodenitis noted in the duodenal bulb. The scope was then withdrawn to the stomach adequately insufflated with air and upon careful examination, mucosa of the antrum had mild gastritis. Biopsies for H pylori were done. Body of the stomach appeared normal and in retroflexion, cardia and fundus appeared normal. Scope was then withdrawn to the esophagus. The GE junction was located at 45 cm from the incisors. There were linear erosions in the distal esophagus consistent with LA grade B reflux esophagitis. Rest of the esophagus have been normal, and the patient tolerated the procedure well. He continued to remain sedated. At this time, a colonoscopy was done. Digital rectal examination was normal. The Olympus GIF-190 video colonoscope was then inserted into the rectum, gradually advanced into the cecum. Careful examination was performed as the scope was gradually being withdrawn. The ileocecal valve and appendiceal orifice were visualized and appeared normal. The prep was poor in several areas of the colon. Thorough irrigation was performed. There was some sticky stool noted throughout the entire colon. Mucosa of the cecum, ascending colon, transverse colon, descending colon, sigmoid colon, and rectum appeared normal. In the rectum, retroflexion was performed. No lesions were noted, and the patient tolerated the procedure well. IMPRESSION: Upper endoscopy revealed, 1. Mild gastritis and duodenitis. 2. Linear erosions in the distal esophagus consistent with LA grade B reflux esophagitis. Colonoscopy was within normal limits with no evidence of colorectal neoplasia. RECOMMENDATIONS: Findings of this examination were discussed with the patient as well as his family. He was advised to start on Prilosec 20 mg daily and follow anti-reflux measures, use Pepcid as needed. Recommend a repeat colonoscopy in 5 years because of the family history of colon cancer. MMANGEL LUIS / IJN: [id number] /
== END 2024-02-09 08:15 ==
LOC: ORWHC2ENDO 07:00
PROVIDERS: ATTEND Internal Medicine Gastroenterology
DX: R12 Heartburn
CPT/HCPCS: 43239; 45380

== ENCOUNTER 2024-02-09 17:52 | Emergency (ER) | payer MEDICARE, OTHER | END 2024-02-09 19:00 | disposition left against medical advice (07) | LOC: EC 17:52 | CPT/HCPCS: 99499 ==

== ENCOUNTER 2024-02-10 11:05 | Emergency (ER) | payer MEDICARE ==
[2024-02-10] MEDS ORDERED: SODIUM CHLORIDE 0.9% 1,000 ML BAG ONE (12:10)
--- NOTE | 2024-03-14 08:36 | XR ---
Site ID [facility] Sean Aly ID [id number] Order # Procedure XR CHEST 2 VW EXAMINATION TYPE: XR chest 2V DATE OF EXAM: 02/10/2024 1:43 PM CLINICAL INDICATION: chest pain COMPARISON: THIS EXAM WAS READ DURING PACS DOWNTIME, NO PRIORS AVAILABLE. TECHNIQUE: XR chest 2V Frontal view of the chest. FINDINGS: Lungs/Pleura: There is no evidence of pleural effusion, focal consolidation, or pneumothorax. Pulmonary vascularity: Unremarkable. Heart/mediastinum: Cardiomediastinal silhouette is unremarkable. Musculoskeletal: No acute osseous pathology. Other findings: None IMPRESSION: No acute cardiopulmonary disease/process.
== END 2024-02-10 16:25 | disposition home or self-care (01) ==
LOC: EC 11:05
DX: R07.89 Other chest pain (principal)
CPT/HCPCS: 71046; 93005; 99284

== ENCOUNTER 2024-02-15 08:01 | Emergency (ER) | payer MEDICARE ==
[2024-02-15] MEDS ORDERED: PANTOPRAZOLE 40 MG/10 ML VIAL ONE (08:39)
[2024-02-15] MEDS ORDERED: MORPHINE SULFATE 4 MG/ML SYRINGE ONE (08:39)
[2024-02-15] MEDS ORDERED: ONDANSETRON 4 MG/2 ML VIAL ONE (08:39)
[2024-02-15] MEDS ORDERED: SODIUM CHLORIDE 0.9% 1,000 ML BAG ONE (08:44)
[2024-02-15] MEDS ORDERED: ONDANSETRON 4 MG ODT STARTER PACK 2 TAB BTL ONE (11:06)
== END 2024-02-15 11:15 | disposition home or self-care (01) ==
LOC: EC 08:01
CPT/HCPCS: 96374; 96375; 99283

== ENCOUNTER 2024-02-16 16:48 | Emergency (ER) | payer MEDICARE | END 2024-02-16 23:25 | disposition home or self-care (01) | LOC: EC 16:48 | DX: F32.A Depression, unspecified (principal) | CPT/HCPCS: 82075; 99283 ==

== ENCOUNTER 2024-02-18 00:06 | Inpatient (IN) | payer MEDICARE, MEDICAID ==
[2024-02-18] MEDS ORDERED: LORazepam 1 MG TAB ONE ×2 (06:11→20:45)
[2024-02-18] MEDS ORDERED: NICOTINE 14MG/24HR PATCH TRANSDERM ONE (07:57)
[2024-02-18] MEDS ORDERED: hydrOXYzine pamoate 25 MG CAP ONE (07:57)
[2024-02-18] MEDS ORDERED: CHOLECALCIFEROL 25 MCG (1000 IU) TABLET ONE (07:57)
[2024-02-18] MEDS ORDERED: ARIPiprazole 15 MG TAB ONE (07:57)
[2024-02-18] MEDS ORDERED: TAMSULOSIN 0.4 MG CAP.ER.24H PO ONE ×2 (07:57→20:45)
[2024-02-18] MEDS ORDERED: amLODIPine 5 MG TAB ONE (08:00)
[2024-02-18] MEDS ORDERED: ASPIRIN 81 MG ONE (08:00)
[2024-02-18] MEDS ORDERED: PANTOPRAZOLE 40 MG TABLET PO ONE (08:00)
[2024-02-18] MEDS ORDERED: ACETAMINOPHEN TAB 325 MG TAB ONE (20:44)
[2024-02-18] MEDS ORDERED: traZODone HCL 100 MG TAB ONE (20:44)
[2024-02-18] MEDS ORDERED: ATORVASTATIN 10 MG TAB ONE (20:45)
[2024-02-18] MEDS ORDERED: MONTELUKAST 10 MG TAB ONE (20:45)
[2024-02-18] MEDS ORDERED: ONDANSETRON ODT 4 MG TAB ONE (22:40)
[2024-02-19] MEDS ORDERED: NICOTINE 14MG/24HR PATCH TRANSDERM ONE (07:51)
[2024-02-19] MEDS ORDERED: ASPIRIN 81 MG ONE (07:51)
[2024-02-19] MEDS ORDERED: PANTOPRAZOLE 40 MG TABLET PO ONE (07:51)
[2024-02-19] MEDS ORDERED: amLODIPine 10 MG TAB ONE (07:52)
[2024-02-19] MEDS ORDERED: ARIPiprazole 15 MG TAB ONE (07:52)
[2024-02-19] MEDS ORDERED: CHOLECALCIFEROL 25 MCG (1000 IU) TABLET ONE (07:52)
[2024-02-19] MEDS ORDERED: TAMSULOSIN 0.4 MG CAP.ER.24H PO ONE ×2 (07:52→20:01)
[2024-02-19] MEDS ORDERED: hydrOXYzine HCL 25 MG TAB ONE (07:52)
[2024-02-19] MEDS ORDERED: ONDANSETRON ODT 4 MG TAB ONE (09:55)
[2024-02-19] MEDS ORDERED: LORazepam 1 MG TAB ONE ×2 (13:25→20:47)
[2024-02-19] MEDS ORDERED: ATORVASTATIN 10 MG TAB ONE (20:01)
[2024-02-19] MEDS ORDERED: traZODone HCL 100 MG TAB ONE (20:01)
[2024-02-19] MEDS ORDERED: MONTELUKAST 10 MG TAB ONE (20:01)
[2024-02-19] MEDS ORDERED: ACETAMINOPHEN TAB 325 MG TAB ONE (22:08)
[2024-02-19] MEDS ORDERED: INSULIN DETEMIR (LEVEMIR) 100 UNIT/ML SYR SQ ONE (23:59)
[2024-02-19] MEDS ORDERED: ALBUTEROL INHALER 60 PUFF/8 GM INHALER (MHU) INHALATION ONE (23:59)
[2024-02-19] MEDS ORDERED: glipiZIDE 5 MG TAB ONE (23:59)
[2024-02-20] MEDS ORDERED: ALBUTEROL NEBULIZED 2.5 MG/3 ML INHALATION PRN
[2024-02-20] MEDS ORDERED: CALCIUM CARBONATE 500 MG CHEWABLE PO PRN
[2024-02-20] MEDS ORDERED: NICOTINE GUM (POLACRILEX) 2 MG GUM BUCCAL PRN
[2024-02-20] MEDS ORDERED: ONDANSETRON 4 MG TAB PO PRN
[2024-02-20] MEDS ORDERED: NITROGLYCERIN SL TABS 0.4 MG TAB SUBLINGUAL PRN
[2024-02-20] MEDS ORDERED: MAG HYDROX/AL HYDROX/SIMETH 30 ML CUP PO PRN
[2024-02-20] MEDS ORDERED: LORazepam 2 MG/ML INJ IM PRN
[2024-02-20 07:53] LABS: Glucose,Whole Blood 150 mg/dL (70-110)
[2024-02-20] MEDS ORDERED: MAGNESIUM HYDROXIDE 2,400 MG/30 ML CUP PO PRN (09:00)
[2024-02-20] MEDS ORDERED: ARTIFICIAL TEARS-HYPROMELLOSE DROPS 15 ML BTL BOTH EYES PRN (09:00)
[2024-02-20] MEDS: amLODIPine 10 MG TAB PO SCH (09:06)
[2024-02-20] MEDS: PANTOPRAZOLE 40 MG TABLET PO SCH (09:06)
[2024-02-20] MEDS: CHOLECALCIFEROL 25 MCG (1000 IU) TABLET PO SCH (09:07)
[2024-02-20] MEDS: hydrOXYzine pamoate 25 MG CAP PO SCH (09:07)
[2024-02-20] MEDS: ARIPiprazole 15 MG TAB PO SCH (09:07)
[2024-02-20] MEDS: NICOTINE 14MG/24HR PATCH TRANSDERM SCH (09:07)
[2024-02-20] MEDS: TAMSULOSIN 0.4 MG CAP.ER.24H PO SCH (09:07)
[2024-02-20] MEDS: ASPIRIN 81 MG PO SCH (09:07)
[2024-02-20] MEDS: ALBUTEROL INHALER 60 PUFF/8 GM INHALER (MHU) INHALATION PRN (09:08)
--- NOTE | 2024-02-20 10:12 | P.PN ---
Progress Note - Text Progress Note Date: 02/20/24 The patient was seen and chart was reviewed and case discussed with nursing staff Patient continues to be focused on his lack of appetite as well as insomnia He also states that he would like to have an antidepressant added to his regimen We discussed a trial of Remeron which may help both with the insomnia and appetite to which she has agreed We discussed effects and side effects of the medication which she appears to understood well patient currently ambulates with a walker and is cooperative States that his depression is about the same but denies any suicidal or homicidal ideations MSE: Alert and attentive. Orientation times three. Dressed and Groomed: Appropriately. Patient and hospital gown Pleasant and cooperative. Psychomotor Activity: Normal. Ambulates with a walker Speech: Normal in tone, quality, and quantity. Mood: Depressed. Affect: Subdued, Flat SI or HI: None. Perceptual disturbance: None. Thought Content: No paranoia or other delusional thinking noted. Thought Process: Normal. Cognition: Intact Judgment and Insight: Good concrete AIMS: Normal. Labs: No new labs. Plan and Recommendations: Continue current Medications. Monitor MS and side effects of medications and adjust medications accordingly. Provide supportive psychotherapy. The patient provided psychoeducation and advised The patient provided Substance abuse counseling. The patient to attend ceron activities. Medication Consent with explanation of risk/benefits and side effects: Explained and obtained. New medication added Remeron 15 mg at bedtime Active Medications Generic Name Dose Route Start Last Admin Trade Name Freq PRN Reason Stop Dose Admin Acetaminophen 650 mg 02/20/24 00:00 Acetaminophen Tab 325 Mg Tab PO Q4H PRN Pain Al Hydroxide/Mg Hydroxide 30 ml 02/20/24 00:00 Mag Hydrox/Al Hydrox/Simeth 30 Ml Cup PO Q4H PRN GI UPSET Albuterol Sulfate 2 puff 02/20/24 00:00 02/20/24 09:08 Albuterol Inhaler 60 Puff/8 Gm Inhaler (Mhu) INHALATION 2 puff RT-Q6H PRN Administration Shortness Of Breath Or Wheezing Albuterol Sulfate 2.5 mg 02/20/24 00:00 Albuterol Nebulized 2.5 Mg/3 Ml INHALATION RT-Q6H PRN SEVERE SOB Amlodipine Besylate 10 mg 02/20/24 09:00 02/20/24 09:06 Amlodipine 10 Mg Tab PO 10 mg DAILY PJ Administration Aripiprazole 15 mg 02/20/24 09:00 02/20/24 09:07 Aripiprazole 15 Mg Tab PO 15 mg DAILY PJ Administration Artificial Tears 4 drops 02/20/24 09:00 Artificial Tears-Hypromellose Drops 15 Ml Btl BOTH EYES DAILY PRN DRY EYE Aspirin 81 mg 02/20/24 09:00 02/20/24 09:07 Aspirin 81 Mg PO 81 mg DAILY PJ Administration Atorvastatin Calcium 10 mg 02/20/24 21:00 Atorvastatin 10 Mg Tab PO HS PJ Calcium Carbonate/Glycine 1,000 mg 02/20/24 00:00 Calcium Carbonate 500 Mg Chewable PO Q6H PRN INDIGESTION Cholecalciferol 25 mcg 02/20/24 09:00 02/20/24 09:07 Cholecalciferol 25 Mcg (1000 Iu) Tablet PO 25 mcg DAILY PJ Administration Hydroxyzine Pamoate 25 mg 02/20/24 09:00 02/20/24 09:07 Hydroxyzine Pamoate 25 Mg Cap PO 25 mg DAILY PJ Administration Ibuprofen 200 mg 02/19/24 23:51 Ibuprofen 200 Mg Tab PO Q8HR PRN Leg pain/discomfort Insulin Detemir 10 unit 02/20/24 21:00 Insulin Detemir (Levemir) 100 Unit/Ml Syr SQ HS PJ Lorazepam 1 mg 02/20/24 00:00 Lorazepam 1 Mg Tab PO Q6H PRN Anxiety Lorazepam 1 mg 02/20/24 00:00 Lorazepam 2 Mg/Ml Inj IM Q6H PRN SEVERE ANXIETY Magnesium Hydroxide 2,400 mg 02/20/24 09:00 Magnesium Hydroxide 2,400 Mg/30 Ml Cup PO DAILY PRN CONSTIPATION Mirtazapine 15 mg 02/20/24 21:00 Mirtazapine 15 Mg Tab PO HS PJ Montelukast Sodium 10 mg 02/20/24 21:00 Montelukast 10 Mg Tab PO HS PJ Nicotine Polacrilex 2 mg 02/20/24 00:00 Nicotine Gum (Polacrilex) 2 Mg Gum BUCCAL Q2H PRN CRAVINGS Nitroglycerin 0.4 mg 02/20/24 00:00 Nitroglycerin Sl Tabs 0.4 Mg Tab SUBLINGUAL Q5M PRN Chest Pain Ondansetron HCl 4 mg 02/20/24 00:00 Ondansetron 4 Mg Tab PO Q8HR PRN Nausea And Vomiting Pantoprazole Sodium 40 mg 02/20/24 07:30 02/20/24 09:06 Pantoprazole 40 Mg Tablet PO 40 mg AC-BRKFST PJ Administration Tamsulosin HCl 0.4 mg 02/20/24 09:00 02/20/24 09:07 Tamsulosin 0.4 Mg Cap.Er.24h PO 0.4 mg BID PJ Administration Trazodone HCl 100 mg 02/20/24 21:00 Trazodone Hcl 100 Mg Tab PO PJ
[2024-02-20] MEDS: ACETAMINOPHEN TAB 325 MG TAB PO PRN (10:35)
[2024-02-20 13:02] LABS: Glucose,Whole Blood 187 mg/dL (70-110)
[2024-02-20] MEDS ORDERED: ONDANSETRON ODT 8 MG TAB.RAPDIS PO PRN (14:14)
[2024-02-20] MEDS: ONDANSETRON ODT 4 MG TAB PO PRN (15:13)
[2024-02-20 17:38] LABS: Glucose,Whole Blood 190 mg/dL (70-110)
[2024-02-20] MEDS ORDERED: ACETAMINOPHEN TAB 325 MG TAB ONE (19:44)
[2024-02-20 19:55] LABS: Glucose,Whole Blood 160 mg/dL (70-110)
[2024-02-20] MEDS: traZODone HCL 100 MG TAB PO SCH (20:25)
[2024-02-20] MEDS: INSULIN DETEMIR (LEVEMIR) 100 UNIT/ML SYR SQ SCH (20:26)
[2024-02-20] MEDS: ATORVASTATIN 10 MG TAB PO SCH (20:26)
[2024-02-20] MEDS: MONTELUKAST 10 MG TAB PO SCH (20:26)
[2024-02-20] MEDS: MIRTAZAPINE 15 MG TAB PO SCH (20:26)
[2024-02-20] MEDS: LORazepam 1 MG TAB PO PRN (21:00)
[2024-02-20] MEDS ORDERED: LORazepam 1 MG TAB ONE (21:00)
[2024-02-20] MEDS: IBUPROFEN 200 MG TAB PO PRN (21:00)
[2024-02-21 07:19] VITALS: RESP 16
[2024-02-21 07:45] LABS: Glucose,Whole Blood 213 mg/dL (70-110)
[2024-02-21] MEDS ORDERED: PANTOPRAZOLE 40 MG TABLET PO ONE (08:06)
[2024-02-21] MEDS ORDERED: hydrOXYzine pamoate 25 MG CAP ONE (08:06)
[2024-02-21] MEDS ORDERED: ARIPiprazole 15 MG TAB ONE (08:06)
[2024-02-21] MEDS ORDERED: ASPIRIN 81 MG ONE (08:06)
[2024-02-21] MEDS ORDERED: LORazepam 1 MG TAB ONE (08:21)
[2024-02-21] MEDS ORDERED: ACETAMINOPHEN TAB 325 MG TAB ONE (10:07)
--- NOTE | 2024-02-21 11:40 | XR ---
Patient: Sean Ramsay A Ordering Physician: Unknown, Unknown ID: [id number] Phone, Pager: Phone: N/A Pager: N/A : 1970 Age/Gender: 53Y, M Primary Location: N/A Procedure: XR Abdomen AP Study Da te: 02/19/2024 6:57:00 AM EXAMINATION TYPE: XR abdomen 1V DATE OF EXAM: 02/19/2024 8:44 AM CLINICAL INDICATION: Abdominal pain COMPARISON: 01/04/2024, CT 08/27/2023 TECHNIQUE: One radiographic view of the abdomen was obtained. FINDINGS: The bowel gas pattern is nonspecific without dilated loops of small or large bowel. . Fecal material and gas are demonstrated throughout the colon and rectum. There is no evidence for organomegaly or pneumoperitoneum. The osseous structures are intact. Pelvi c phleboliths are present. Posttreatment/brachytherapy clips in the prostate gland. Peripherally calc ified probable splenic pseudocyst. IMPRESSION: Nonspecific bowel gas pattern without radiographic evidence for acute process.
[2024-02-21 12:40] LABS: Glucose,Whole Blood 170 mg/dL (70-110)
--- NOTE | 2024-02-21 16:54 | P.PN ---
Progress Note - Text Progress Note Date: 02/21/24 Follow-up Mediation Review Chief Complaint: I dont want to go back to the place I live in. Subjective: The patient noted that he does not have a nice place. He noted that the people, who live with him drink and do drugs. He indicated that their drinking causes him to drink. He reported his mood being good but noted that he is worried about going back to the same environment. He is going to talk to [facility] trimming caser today, who will be here. He was advised to talk to her to be moved to a different place. The patient had no other complaints. He reported no side effects. The patient has been attending the groups. The participation is limited. The interaction with staff and peers is limited. The patient is compliant with treatment recommendations. Leading questions: The patient denied Depression and Anxiety. Denied SI or HI. Denied symptoms consistent with psychosis. Sleep and Appetite: Good. Change in family/ living/job/financial/daily routine: No change. Change in medical condition: No change. Change in medications: No change. Side effects from Medications: None. Objective- MSE: Alert and attentive. Orientation times three. Dressed and Groomed: Appropriately. Pleasant and cooperative. Psychomotor Activity: Normal. Speech: Normal in tone, quality, and quantity. Mood: I am worried about my living situation. Affect: Appropriate to the mood. SI or HI: None. Perceptual disturbance: None. Thought Content: No paranoia or other delusional thinking noted. Thought Process: Normal. Cognition: Intact Judgment and Insight: Fair AIMS: Normal. Labs: No new labs. Diagnosis: No change. Plan and Recommendations: Continue current Medications. Monitor MS and side effects of medications and adjust medications accordingly. Provide supportive psychotherapy. The patient provided psychoeducation and advised The patient provided Substance abuse counseling. Smoke cessation therapy. The patient to attend ceron activities. Medication Consent with explanation of risk/benefits and side effects: Explained and obtained.
[2024-02-21 17:34] LABS: Glucose,Whole Blood 183 mg/dL (70-110)
[2024-02-21 20:15] LABS: Glucose,Whole Blood 231 mg/dL (70-110)
--- NOTE | 2024-02-21 23:19 | P.CONS ---
History of Present Illness - Reason for Consult Consult date: 02/19/24 - History of Present Illness The patient is a 53-year-old male with a PMH of hypertension, hyperlipidemia, COPD, and type II DM who had presented to the emergency room with complaints of depression and suicidal ideation. The patient was admitted to the mental health unit where he was seen and evaluated. The patient reports that he has chronic diffuse body pains which are unchanged. He also reported occasional abdominal pain with diarrhea and vomiting, 1-2 episodes daily with no clear eliciting triggers. Denied experiencing chest discomfort, shortness of breath, fever, chills, cough. The patient denied illicit substance or alcohol use. Review of systems: Pertinent positives and negatives as discussed in HPI, a complete review of systems was performed and all other systems are negative. Physical examination: General: non toxic, no distress, appears at stated age, obese Derm: no unusual rashes/lesions, no unusual ecchymoses, warm, dry Head: atraumatic, normocephalic, symmetric Eyes: EOMI, no lid lag, anicteric sclera ENT: Nose and ears atraumatic, no thrush, no pharyngeal erythema Neck: trachea midline, supple Mouth: no lip lesion, mucus membranes moist Cardiovascular: S1S2 reg, no murmur, no edema Lungs: CTA bilateral, no rhonchi, no rales , no accessory muscle use Abdominal: soft, nontender to palpation, no guarding Ext: no gross muscle atrophy, no contractures, Neuro: No gross focal neuro deficits noted Psych: Alert, oriented, appropriate affect Assessment: Chronic conditions: Type II DM, hypertension, hyperlipidemia, COPD Depression and suicidal ideation Imaging: None performed Data Review: Reviewed with WBC count 6.5, hemoglobin 15.6, platelet count 196, sodium 136, potassium 4.3, chloride 106, calcium 9.5, BUN 11, creatinine 0.7, glucose 215 with TSH 1.23. Plan: Resume patient's home medications once reconciled Insulin sliding scale and blood glucose monitoring Defer management of depression and suicidal ideation to the primary psychiatry service Thank you for allowing us to participate in the care of this patient. We will follow peripherally. Do not hesitate to contact us with questions. Someone can be reached from the [facility] hospitalist group at all hours of the day at [phone]. Past Medical History Past Medical History: Asthma, Chest Pain / Angina, COPD, CVA/TIA, Diabetes Mellitus, GERD/Reflux, Hearing Disorder / Deafness, Hyperlipidemia, Hypertension, Liver Disease, Osteoarthritis (OA), Pneumonia, Seizure Disorder, Sleep Apnea/CPAP/BIPAP Additional Past Medical History / Comment(s): states CVA at 35 yrs old, no weakness @ this time. states seizure at 35 yrs old., DDD- back & neck pain., carpal tunnel syndrome. Has [employer] public guardian. History of Any Multi-Drug Resistant Organisms: None Reported Past Surgical History: Heart Catheterization, Orthopedic Surgery Additional Past Surgical History / Comment(s): Cysts removed, left thumb surgery, colonoscopy 08/24/2019. Skin tags removed from both eyes. Past Anesthesia/Blood Transfusion Reactions: Unable to Obtain, Motion Sickness, Postoperative Nausea & Vomiting (PONV) Past Psychological History: Anxiety, Bipolar, Depression, Schizophrenia Smoking Status: Current every day smoker Past Alcohol Use History: None Reported Past Drug Use History: None Reported - Past Family History Brother(s) Family Medical History: Diabetes Mellitus Additional Family Medical History / Comment(s): Patient has 2 brothers. One from complications from diabetes. The second is alive with diabetes. Sister(s) Family Medical History: Cancer Additional Family Medical History / Comment(s): Patient has one sister with breast cancer. Patient does not have any children. Father Family Medical History: Cancer Additional Family Medical History / Comment(s): Father in his 40s or 50s from colon cancer. Mother Family Medical History: Cancer Additional Family Medical History / Comment(s): Mother at age 68 from lung cancer. Medications and Allergies Home Medications Medication Instructions Recorded Confirmed Type Nitroglycerin Sl Tabs [Nitrostat] 0.4 mg SL Q5M PRN 08/20/23 12/21/23 History metFORMIN HCL 1,000 mg PO BID 10/06/23 12/21/23 History Ibuprofen [Motrin] 800 mg PO Q8H PRN 12/06/23 12/21/23 History Insulin Glargine,Hum.rec.anlog 10 units SQ HS 12/06/23 12/21/23 History [Lantus Solostar Pen] Ondansetron Odt [Zofran ODT] 4 mg PO BID PRN 12/06/23 12/21/23 History ARIPiprazole [Abilify] 15 mg PO DAILY 30 Days #30 tab 12/13/23 12/21/23 Rx Albuterol Nebulized [Ventolin 2.5 mg INHALATION RT-Q6H PRN #1 ml 12/13/23 12/21/23 Rx Nebulized] Aspirin EC [Ecotrin Low Dose] 81 mg PO DAILY 30 Days #30 tab 12/13/23 12/21/23 Rx Atorvastatin [Lipitor] 10 mg PO HS 30 Days #30 tab 12/13/23 12/21/23 Rx Budesonide-Formot 160-4.5 Mcg 2 puff INHALATION RT-BID 30 Days 12/13/23 12/21/23 Rx [Symbicort 160-4.5 Mcg Inhaler] #1 each Cholecalciferol (Vitamin D3) 50 mcg PO DAILY 30 Days #30 tab 12/13/23 12/21/23 Rx [Vitamin D3 (50 Mcg = 2000 Iu)] Esomeprazole Magnesium [NexIUM] 40 mg PO DAILY 30 Days #30 cap 12/13/23 12/21/23 Rx Famotidine [Pepcid] 20 mg PO BID PRN 30 Days #60 tab 12/13/23 12/21/23 Rx Ipratropium-Albuterol Nebulize 3 ml INHALATION RT-QID PRN 30 Days 12/13/2312/20 Rx [Duoneb 0.5 mg-3 mg/3 ml Soln] #1 each Melatonin 5 mg PO HS 30 Days #30 tab 12/13/23 12/21/23 Rx Mirtazapine [Remeron] 15 mg PO HS 30 Days #30 tab 12/13/23 12/21/23 Rx Montelukast [Singulair] 10 mg PO HS 30 Days #30 tab 12/13/23 12/21/23 Rx Nicotine 14Mg/24Hr Patch [Habitrol] 1 patch TRANSDERM DAILY 14 Days 12/13/23 12/21/23 Rx #14 patch Sertraline [Zoloft] 100 mg PO HS 30 Days #30 tab 12/13/23 12/21/23 Rx hydrOXYzine pamoate [Vistaril] 25 mg PO DAILY PRN 30 Days #30 cap 12/13/23 12/21/23 Rx lisinopriL [Zestril] 2.5 mg PO DAILY 30 Days #30 tab 12/13/23 12/21/23 Rx glipiZIDE [Glucotrol] 5 mg PO AC-BID 12/21/23 12/21/23 History Docusate [Colace] 100 mg PO BID PRN 3 Days #6 capsule 12/22/23 Rx Famotidine [Pepcid] 20 mg PO BID PRN #40 tab 12/22/23 Rx Lidocaine 4% Patch 1 patch TOPICAL DAILY #3 patch 12/22/23 Rx Nicotine Gum (Polacrilex) 2 mg BUCCAL Q8HR PRN 3 Days #6 12/22/23 Rx [Nicorette] pieceofgum Ondansetron Odt [Zofran Odt] 4 mg PO Q8HR PRN #10 tab 01/04/24 Rx Sulfamethox-Tmp 800-160Mg [Bactrim 1 each PO Q12HR #14 tab 01/09/24 Rx DS 800-160 mg] Nitrofurantoin Monohyd/M-Cryst 100 mg PO Q12HR #14 cap 01/13/24 Rx [Macrobid] Nitrofurantoin Monohyd/M-Cryst 100 mg PO Q12HR #10 cap 01/17/24 Rx [Macrobid] Allergies Allergy/AdvReac Type Severity Reaction Status Date / Time dicyclomine HCl [From Bentyl] Allergy Unknown Dyspnea Verified 02/19/24 15:09 latex Allergy Unknown Rash/Hives Verified 02/19/24 15:09 Benzoate Analogues Allergy Unknown Verified 02/19/24 15:09 nitrofurantoin Allergy Nausea Verified 02/19/24 15:09 [From Macrobid] Penicillins Allergy "Beverly Verified 02/19/24 15:09 funny" adhesive AdvReac Unknown Itching Verified 02/19/24 15:09 ciprofloxacin AdvReac Unknown Nausea Verified 02/19/24 15:09 Macrolide Antibiotics AdvReac Unknown Nausea Verified 02/19/24 15:09 sulfamethoxazole AdvReac Unknown Unknown Verified 02/19/24 15:09 [From Bactrim] trimethoprim [From Bactrim] AdvReac Unknown Unknown Verified 02/19/24 15:09 diphenhydramine AdvReac Confusion Verified 02/19/24 15:09 [From Benadryl] Physical Exam Vitals: Vital Signs Temp Pulse Resp BP Pulse Ox 02/21/24 08:00 63 16 98/66 98 02/21/24 06:35 98 F 63 16 125/85 96 Results Labs: Abnormal Lab Results - Last 24 Hours (Table) 02/21/24 02/21/24 02/21/24 Range/Units 07:44 12:36 17:32 POC Glucose (mg/dL) 213 H 170 H 183 H (70-110) mg/dL 02/21/24 Range/Units 20:13 POC Glucose (mg/dL) 231 H (70-110) mg/dL
[2024-02-22 07:10] VITALS: PULSE 49; TEMP 97.8
[2024-02-22 07:11] LABS: Glucose,Whole Blood 145 mg/dL (70-110)
[2024-02-22] MEDS: INSULIN ASPART (NovoLOG) 100 UNIT/ML VIAL SQ SCH (09:26)
[2024-02-22 09:31] VITALS: BP 113/69
--- NOTE | 2024-02-22 11:37 | P.DS ---
Providers Date of admission: 02/18/24 12:06 Expected date of discharge: 02/22/24 Attending physician: Chris Ahmadi MD Consults: 02/19/24 15:14 Consult Physician Routine Consulting Provider: Aminata Bruce Consult Reason/Comments: medical management Do you want consulting provider notified?: Already Contacted Primary care physician: Stated None - Discharge Diagnosis(es) (1) Major depressive disorder, recurrent, severe with psychotic features Current Visit: Yes Status: Acute Priority: High Hospital Course: Discharge Summary HPI: Mr. Ramsay is 53 years old, single, wm, who lives in [place], [place]. He was admitted to the hospital with symptoms of being very depressed and suicidal. He was planning to jump off the bridge. He was hearing voices to kill himself. He felt unsafe at home and came to the hospital to be admitted. PPH: The patient noted that he has been hospitalized to psychiatric hospital over 15 times with depression, hearing voices and suicidal thoughts. His first admission was at age 15. Drug/Alcohol abuse: The patient denied abuse of drugs. He admitted to drinking alcohol but stated that he does not abuse alcohol. PMH: DM, COPD, Sleep Apnea. Hospital Course: After admission, the patient was involved in pharmacotherapy, ceron milieu, and individual psychodynamic psychotherapy. The patient was started Abilify, Trazodone, Vistaril and Zoloft. The dose was titrated to obtain the desire effects. The patient tolerated medications well without any side effects. The patient was also involved in ceron activities. The patient attended the groups and participated well. The patient interacted with peers and staff well. The patient slowly started showing improvement. The hospital course was uneventful. The patient symptoms of depression, suicidal and homicidal ideations abated. The psychosis improved. The patient was stable to be discharged to out-patient care. The patient did not have any guns or weapons in possession at home. MSE: Alert and attentive. Orientation times three. Dressed and Groomed: Appropriately. Pleasant and cooperative. Psychomotor Activity: Normal. Speech: Normal in tone, quality, and quantity. Mood: Depressed and anxious. Affect: Appropriate to the mood. SI or HI: Admitted to the suicidal thoughts with plan. No HI. Perceptual disturbance: Reported hearing voices telling him to kill himself. Thought Content: No paranoia or other delusional thinking noted. Thought Process: Normal. Cognition: Intact Judgment and Insight: Good Diagnosis: Major depressive Disorder, severe, recurrent with psychosis. Plan: The patient to be discharged today. The patient has attained good improvement since admission. He is stable to be followed as an outpatient. The patient is not suicidal or Homicidal. He does not pose any harm to self or others. The patient remains at a greater risk of self-harm or harm to others than general population on a chronic basis due to psychiatric illness and substance abuse. The patient will continue taking following medication post discharge. The importance of medication compliance and maintaining regular appointments at psychiatric out-pt and PCP clinic was explained and encouraged. The patient was also advised to seek alcohol counseling and attend AA/NA meetings. The understood and agreed with the recommendations. general distillery worker to arrange for and conduct family meeting to ensure safety upon discharge and answer any questions. The manager social responsibility to arrange for patients follow-up appointments at [facility] for psychiatric care along with follow-up with PCP. The patient provided psychoeducation. Advised to call 911 or go to nearest ED or call this hospital in case of acute worsening of symptomatology, severe side effects or having suicidal, homicidal thoughts and feeling unsafe at home. Patient Condition at Discharge: Stable Plan - Discharge Summary New Discharge Prescriptions: New traZODone HCL [Desyrel] 100 mg PO HS tab Continue Nitroglycerin Sl Tabs [Nitrostat] 0.4 mg SL Q5M PRN PRN Reason: Chest Pain metFORMIN HCL 1,000 mg PO BID Insulin Glargine,Hum.rec.anlog [Lantus Solostar Pen] 10 units SQ HS Ibuprofen [Motrin] 800 mg PO Q8H PRN PRN Reason: Pain Ipratropium-Albuterol Nebulize [Duoneb 0.5 mg-3 mg/3 ml Soln] 3 ml INHALATION RT-QID PRN 30 Days #1 each PRN Reason: Shortness Of Breath Or Wheezing Sertraline [Zoloft] 100 mg PO HS 30 Days #30 tab ARIPiprazole [Abilify] 15 mg PO DAILY 30 Days #30 tab Atorvastatin [Lipitor] 10 mg PO HS 30 Days #30 tab Esomeprazole Magnesium [NexIUM] 40 mg PO DAILY 30 Days #30 cap Albuterol Nebulized [Ventolin Nebulized] 2.5 mg INHALATION RT-Q6H PRN #1 ml PRN Reason: Shortness Of Breath Cholecalciferol (Vitamin D3) [Vitamin D3 (50 Mcg = 2000 Iu)] 50 mcg PO DAILY 30 Days #30 tab glipiZIDE [Glucotrol] 5 mg PO AC-BID Lidocaine 4% Patch 1 patch TOPICAL DAILY #3 patch Ondansetron Odt [Zofran ODT] 4 mg PO Q8HR PRN #10 tab PRN Reason: Nausea Sulfamethox-Tmp 800-160Mg [Bactrim DS 800-160 mg] 1 each PO Q12HR #14 tab Nitrofurantoin Monohyd/M-Cryst [Macrobid] 100 mg PO Q12HR #14 cap Nitrofurantoin Monohyd/M-Cryst [Macrobid] 100 mg PO Q12HR #10 cap Ondansetron Odt [Zofran ODT] 4 mg PO BID PRN PRN Reason: Nausea And Vomiting Nicotine 14Mg/24Hr Patch [Habitrol] 1 patch TRANSDERM DAILY 14 Days #14 patch Budesonide-Formot 160-4.5 Mcg [Symbicort 160-4.5 Mcg Inhaler] 2 puff INHALATION RT-BID 30 Days #1 each hydrOXYzine pamoate [Vistaril] 25 mg PO DAILY PRN 30 Days #30 cap PRN Reason: Anxiety Aspirin EC [Ecotrin Low Dose] 81 mg PO DAILY 30 Days #30 tab Melatonin 5 mg PO HS 30 Days #30 tab Famotidine [Pepcid] 20 mg PO BID PRN 30 Days #60 tab PRN Reason: Heartburn Montelukast [Singulair] 10 mg PO HS 30 Days #30 tab lisinopriL [Zestril] 2.5 mg PO DAILY 30 Days #30 tab Docusate [Colace] 100 mg PO BID PRN 3 Days #6 capsule PRN Reason: Constipation Nicotine Gum (Polacrilex) [Nicorette] 2 mg BUCCAL Q8HR PRN 3 Days #6 pieceofgum PRN Reason: Nicotine Cravings Discontinued Famotidine [Pepcid] 20 mg PO BID PRN #40 tab PRN Reason: Heartburn Mirtazapine [Remeron] 15 mg PO HS 30 Days #30 tab Discharge Medication List Nitroglycerin Sl Tabs [Nitrostat] 0.4 mg SL Q5M PRN 02/23/24 [History] metFORMIN HCL 1,000 mg PO BID 10/06/23 [History] Ibuprofen [Motrin] 800 mg PO Q8H PRN 12/06/23 [History] Insulin Glargine,Hum.rec.anlog [Lantus Solostar Pen] 10 units SQ HS 12/06/23 [History] Ondansetron Odt [Zofran ODT] 4 mg PO BID PRN 12/06/23 [History] ARIPiprazole [Abilify] 15 mg PO DAILY 30 Days #30 tab 12/13/23 [Rx] Albuterol Nebulized [Ventolin Nebulized] 2.5 mg INHALATION RT-Q6H PRN #1 ml 12/13/23 [Rx] Aspirin EC [Ecotrin Low Dose] 81 mg PO DAILY 30 Days #30 tab 12/13/23 [Rx] Atorvastatin [Lipitor] 10 mg PO HS 30 Days #30 tab 12/13/23 [Rx] Budesonide-Formot 160-4.5 Mcg [Symbicort 160-4.5 Mcg Inhaler] 2 puff INHALATION RT-BID 30 Days #1 each 12/13/23 [Rx] Cholecalciferol (Vitamin D3) [Vitamin D3 (50 Mcg = 2000 Iu)] 50 mcg PO DAILY 30 Days #30 tab 12/13/23 [Rx] Esomeprazole Magnesium [NexIUM] 40 mg PO DAILY 30 Days #30 cap 12/13/23 [Rx] Famotidine [Pepcid] 20 mg PO BID PRN 30 Days #60 tab 12/13/23 [Rx] Ipratropium-Albuterol Nebulize [Duoneb 0.5 mg-3 mg/3 ml Soln] 3 ml INHALATION RT-QID PRN 30 Days #1 each 12/13/23 [Rx] Melatonin 5 mg PO HS 30 Days #30 tab 12/13/23 [Rx] Montelukast [Singulair] 10 mg PO HS 30 Days #30 tab 12/13/23 [Rx] Nicotine 14Mg/24Hr Patch [Habitrol] 1 patch TRANSDERM DAILY 14 Days #14 patch 12/13/23 [Rx] Sertraline [Zoloft] 100 mg PO HS 30 Days #30 tab 12/13/23 [Rx] hydrOXYzine pamoate [Vistaril] 25 mg PO DAILY PRN 30 Days #30 cap 12/13/23 [Rx] lisinopriL [Zestril] 2.5 mg PO DAILY 30 Days #30 tab 12/13/23 [Rx] glipiZIDE [Glucotrol] 5 mg PO AC-BID 12/21/23 [History] Docusate [Colace] 100 mg PO BID PRN 3 Days #6 capsule 12/22/23 [Rx] Lidocaine 4% Patch 1 patch TOPICAL DAILY #3 patch 12/22/23 [Rx] Nicotine Gum (Polacrilex) [Nicorette] 2 mg BUCCAL Q8HR PRN 3 Days #6 pieceofgum 12/22/23 [Rx] Ondansetron Odt [Zofran ODT] 4 mg PO Q8HR PRN #10 tab 01/04/24 [Rx] Sulfamethox-Tmp 800-160Mg [Bactrim DS 800-160 mg] 1 each PO Q12HR #14 tab 01/09/24 [Rx] Nitrofurantoin Monohyd/M-Cryst [Macrobid] 100 mg PO Q12HR #14 cap 01/13/24 [Rx] Nitrofurantoin Monohyd/M-Cryst [Macrobid] 100 mg PO Q12HR #10 cap 01/17/24 [Rx] traZODone HCL [Desyrel] 100 mg PO HS tab 02/22/24 [Rx] Discharge Disposition: HOME SELF-CARE
[2024-02-22 12:35] LABS: Glucose,Whole Blood 249 mg/dL (70-110)
--- NOTE | 2024-03-24 12:31 | PN ---
PROGRESS NOTE The patient is seen in room 307, bed 2. The patient was seen, chart was reviewed, and case discussed with nursing staff. The patient reports that he has been hospitalized on multiple times. He says that he just could not eat. Patient was unable to give any reason for him being in the unit, but then stated that he was suicidal. Patient says that he currently lives in a halfway and he is on SSDI. He says that he sometimes hears voices that tells him to hurt himself, but then he is trying to avoid them as well as said the medications do seem to help. He said that he is currently wanting to get better and feels that he is making some progress. He stated that he is taking one day at a time. MENTAL STATUS EXAMINATION: Reveals an elderly man, who is currently ambulating with a walker. Affect at this time is flat and blunted patient otherwise is fairly interactive. PLAN: The patient will continue on his current medications as prescribed. Continue supportive care. Encouraged to verbalize otherwise to continue working on his coping skills. Approximate length of stay would be 7 to 10 days. MMODL / IJN: [id number] /
== END 2024-02-22 16:05 | disposition home or self-care (01) | DRG 885 ==
LOC: 3MHU 00:06 → UNDOADMIN 12:06 → UNDODISIN 02-22 16:05
PROVIDERS: ADMIT Psychiatry & Neurology Psychiatry; ATTEND Psychiatry & Neurology Psychiatry
DX: F33.3 Major depressive disorder, recurrent, severe with psychotic symptoms (principal); R45.851 Suicidal ideations; J44.89 Other specified chronic obstructive pulmonary disease; E11.9 Type 2 diabetes mellitus without complications; K21.9 Gastro-esophageal reflux disease without esophagitis; H91.90 Unspecified hearing loss, unspecified ear; E78.5 Hyperlipidemia, unspecified; I10 Essential (primary) hypertension; K76.9 Liver disease, unspecified; M19.90 Unspecified osteoarthritis, unspecified site; G40.909 Epilepsy, unspecified, not intractable, without status epilepticus; G47.30 Sleep apnea, unspecified; R07.9 Chest pain, unspecified; M25.572 Pain in left ankle and joints of left foot; I25.10 Atherosclerotic heart disease of native coronary artery without angina pectoris; N40.0 Benign prostatic hyperplasia without lower urinary tract symptoms; F17.210 Nicotine dependence, cigarettes, uncomplicated; F41.9 Anxiety disorder, unspecified; Z79.4 Long term (current) use of insulin; Z86.73 Personal history of transient ischemic attack (TIA), and cerebral infarction without residual deficits; Z87.01 Personal history of pneumonia (recurrent); Z79.899 Other long term (current) drug therapy; Z79.84 Long term (current) use of oral hypoglycemic drugs; Z79.82 Long term (current) use of aspirin; Z79.51 Long term (current) use of inhaled steroids; Z88.8 Allergy status to other drugs, medicaments and biological substances; Z88.0 Allergy status to penicillin; Z91.040 Latex allergy status; Z88.2 Allergy status to sulfonamides; Z88.1 Allergy status to other antibiotic agents
CPT/HCPCS: 74018; 80061; 83036; 93005; 99285

== ENCOUNTER 2024-02-25 17:39 | Emergency (ER) | payer MEDICARE ==
[2024-02-25 18:27] VITALS: TEMP 98.2
--- NOTE | 2024-02-25 18:43 | XR ---
EXAMINATION TYPE: XR chest 2V DATE OF EXAM: 02/25/2024 6:00 PM CLINICAL INDICATION: Male, 53 years old with history of Chest Pain; [facility] COMPARISON: 01/20/2024 TECHNIQUE: XR chest 2V Frontal view of the chest. FINDINGS: Lungs/Pleura: There is no evidence of pleural effusion, focal consolidation, or pneumothorax. Pulmonary vascularity: Unremarkable. Heart/mediastinum: Cardiomediastinal silhouette is unremarkable. Musculoskeletal: No acute osseous pathology. IMPRESSION: No acute cardiopulmonary disease/process.
[2024-02-25 18:47] LABS: Basophils % (A) 0 %; Eosinophils # (A) 0.3 k/uL (0-0.7); Eosinophils % (A) 5 %; HCT 37.5 % (39.0-53.0); HGB 13.3 gm/dL (13.0-17.5); Lymphocytes % (A) 19 %; MCH 31.6 pg (25.0-35.0); MCHC 35.6 g/dL (31.0-37.0); MCV 88.8 fL (80.0-100.0); Mean Platelet Volume 7.3; Monocytes # (A) 0.3 k/uL (0-1.0); Monocytes % (A) 6 %; Neutrophils # (A) 3.4 k/uL (1.3-7.7); Neutrophils % (A) 68 %; Platelet Count 163 k/uL (150-450); RBC 4.22 m/uL (4.30-5.90); RDW 13.1 % (11.5-15.5)
[2024-02-25 19:02] LABS: ALT 27 U/L (4-49); AST 21 U/L (17-59); African American GFR (CKD) >90 (>60 ml/min/1.73 sqM); Albumin 3.1 g/dL (3.5-5.0); Alkaline Phosphatase 55 U/L (38-126); Anion Gap 5 mmol/L; Blood Urea Nitrogen 13 mg/dL (9-20); Calcium 7.6 mg/dL (8.4-10.2); Carbon Dioxide 19 mmol/L (22-30); Chloride 116 mmol/L (98-107); Glucose 179 mg/dL (74-99); Lipase 82 U/L (23-300); Magnesium 1.4 mg/dL (1.6-2.3); Non-African American GFR(CKD) >90 (>60 ml/min/1.73 sqM); Potassium 3.1 mmol/L (3.5-5.1); Sodium 140 mmol/L (137-145); Total Bilirubin 0.8 mg/dL (0.2-1.3); Total Protein 4.9 g/dL (6.3-8.2)
[2024-02-25] MEDS: MAGNESIUM SULFATE-D5W PMX 1 GM in DEXTROSE/WATER 1 100ML.BAG IVPB ONE (20:15)
[2024-02-25] MEDS: SODIUM CHLORIDE 0.9% 1,000 ML IV ONE (20:15)
[2024-02-25 20:20] VITALS: PULSE 65
--- NOTE | 2024-02-25 21:08 | ED ---
Chest Pain HPI - General Chief Complaint: Chest Pain Stated Complaint: chest pain Time Seen by Provider: 02/25/24 17:45 Source: patient, EMS Mode of arrival: EMS Limitations: no limitations - History of Present Illness Initial Comments: 53-year-old male presents emergency department reporting chest pain. Patient is frequently in the emergency department for various complaints. Chest pain is one of them. He reports that he has a pressure sensation in his chest. He also has nausea. He checked his blood pressure and it was running low. He denies any recent medication changes. Denies taking any of his medications in excess. No other alleviating, precipitating or modifying factors - Related Data Home Medications Medication Instructions Recorded Confirmed Nitroglycerin Sl Tabs [Nitrostat] 0.4 mg SL Q5M PRN 08/20/23 02/27/24 Insulin Glargine,Hum.rec.anlog 15 units SQ HS 12/06/23 02/27/24 [Lantus Solostar Pen] Albuterol Inhaler [Ventolin Hfa 1 - 2 puff INHALATION RT-Q6H PRN 02/25/24 02/27/24 Inhaler] Albuterol Nebulized [Ventolin 2.5 mg INHALATION RT-QID PRN 02/25/24 02/27/24 Nebulized] Empagliflozin [Jardiance] 25 mg PO DAILY 02/25/24 02/27/24 Lidocaine 5% Patch [Lidoderm] 1 patch TRANSDERM DAILY 02/25/24 02/27/24 Omeprazole 40 mg PO DAILY 02/25/24 02/27/24 Tamsulosin [Flomax] 0.4 mg PO BID 02/25/24 02/27/24 amLODIPine [Norvasc] 10 mg PO DAILY 02/25/24 02/27/24 hydrOXYzine pamoate [Vistaril] 50 mg PO HS PRN 02/25/24 02/27/24 Benzonatate [Tessalon Perles] 100 mg PO TID PRN 02/27/24 02/27/24 Hyoscyamine Sulfate [Levsin-Sl] 0.125 mg SL QID PRN 02/27/24 02/27/24 Previous Rx's Medication Instructions Recorded ARIPiprazole [Abilify] 15 mg PO DAILY 30 Days #30 tab 12/13/23 Aspirin EC [Ecotrin Low Dose] 81 mg PO DAILY 30 Days #30 tab 12/13/23 Atorvastatin [Lipitor] 10 mg PO HS 30 Days #30 tab 12/13/23 Budesonide-Formot 160-4.5 Mcg 2 puff INHALATION RT-BID 30 Days 12/13/23 [Symbicort 160-4.5 Mcg Inhaler] #1 each Cholecalciferol (Vitamin D3) 50 mcg PO DAILY 30 Days #30 tab 12/13/23 [Vitamin D3 (50 Mcg = 2000 Iu)] Famotidine [Pepcid] 20 mg PO BID PRN 30 Days #60 tab 12/13/23 Ipratropium-Albuterol Nebulize 3 ml INHALATION RT-QID PRN 30 Days 12/13/23 [Duoneb 0.5 mg-3 mg/3 ml Soln] #1 each Montelukast [Singulair] 10 mg PO HS 30 Days #30 tab 12/13/23 Sertraline [Zoloft] 100 mg PO HS 30 Days #30 tab 12/13/23 hydrOXYzine pamoate [Vistaril] 25 mg PO DAILY PRN 30 Days #30 cap 12/13/23 Ondansetron Odt [Zofran ODT] 4 mg PO Q8HR PRN #10 tab 01/04/24 traZODone HCL [Desyrel] 100 mg PO HS tab 02/22/24 Allergies Allergy/AdvReac Type Severity Reaction Status Date / Time dicyclomine HCl [From Bentyl] Allergy Unknown Dyspnea Verified 02/27/24 11:48 latex Allergy Unknown Rash/Hives Verified 02/27/24 11:48 Benzoate Analogues Allergy Unknown Verified 02/27/24 11:48 nitrofurantoin Allergy Nausea Verified 02/27/24 11:48 [From Macrobid] Penicillins Allergy "[place] Verified 02/27/24 11:48 funny" adhesive AdvReac Unknown Itching Verified 02/27/24 11:48 ciprofloxacin AdvReac Unknown Nausea Verified 02/27/24 11:48 Macrolide Antibiotics AdvReac Unknown Nausea Verified 02/27/24 11:48 sulfamethoxazole AdvReac Unknown Unknown Verified 02/27/24 11:48 [From Bactrim] trimethoprim [From Bactrim] AdvReac Unknown Unknown Verified 02/27/24 11:48 diphenhydramine AdvReac Confusion Verified 02/27/24 11:48 [From Benadryl] Review of Systems ROS Statement: Those systems with pertinent positive or pertinent negative responses have been documented in the HPI. ROS Other: All systems not noted in ROS Statement are negative. Past Medical History Past Medical History: Asthma, Chest Pain / Angina, COPD, CVA/TIA, Diabetes Me llitus, GERD/Reflux, Hearing Disorder / Deafness, Hyperlipidemia, Hypertension, Liver Disease, Osteoarthritis (OA), Pneumonia, Seizure Disorder, Sleep Apnea/CPAP/BIPAP Additional Past Medical History / Comment(s): states CVA at 35 yrs old, no weakness @ this time. states seizure at 35 yrs old., DDD- back & neck pain., carpal tunnel syndrome. Has [employer] public guardian. History of Any Multi-Drug Resistant Organisms: None Reported Past Surgical History: Heart Catheterization, Orthopedic Surgery Additional Past Surgical History / Comment(s): Cysts removed, left thumb surgery, colonoscopy 08/24/2019. Skin tags removed from both eyes. Past Anesthesia/Blood Transfusion Reactions: Unable to Obtain, Motion Sickness, Postoperative Nausea & Vomiting (PONV) Past Psychological History: Anxiety, Bipolar, Depression, Schizophrenia Smoking Status: Current every day smoker Past Alcohol Use History: None Reported Past Drug Use History: None Reported - Past Family History Brother(s) Family Medical History: Diabetes Mellitus Additional Family Medical History / Comment(s): Patient has 2 brothers. One from complications from diabetes. The second is alive with diabetes. Sister(s) Family Medical History: Cancer Additional Family Medical History / Comment(s): Patient has one sister with breast cancer. Patient does not have any children. Father Family Medical History: Cancer Additional Family Medical History / Comment(s): Father in his 40s or 50s from colon cancer. Mother Family Medical History: Cancer Additional Family Medical History / Comment(s): Mother at age 68 from lung cancer. General Exam Limitations: no limitations General appearance: alert, in no apparent distress Head exam: Present: atraumatic, normocephalic, normal inspection Eye exam: Present: normal appearance, PERRL, EOMI. Absent: scleral icterus, conjunctival injection, periorbital swelling ENT exam: Present: normal exam, mucous membranes moist Neck exam: Present: normal inspection. Absent: tenderness, meningismus, lymphadenopathy Respiratory exam: Present: normal lung sounds bilaterally. Absent: respiratory distress, wheezes, rales, rhonchi, stridor Cardiovascular Exam: Present: regular rate, normal rhythm, normal heart sounds. Absent: systolic murmur, diastolic murmur, rubs, gallop, clicks GI/Abdominal exam: Present: soft, normal bowel sounds. Absent: distended, tenderness, guarding, rebound, rigid Extremities exam: Present: normal inspection, full ROM, normal capillary refill. Absent: tenderness, pedal edema, joint swelling, calf tenderness Back exam: Present: normal inspection Neurological exam: Present: alert, oriented X3, CN II-XII intact Psychiatric exam: Present: normal affect, normal mood Skin exam: Present: warm, dry, intact, normal color. Absent: rash Course Vital Signs 02/25/24 02/25/24 02/25/24 17:41 18:00 18:10 Temperature 98.2 F Pulse Rate 61 59 L Respiratory 16 15 Rate Blood Pressure 102/57 97/55 88/61 O2 Sat by Pulse 96 96 Oximetry 02/25/24 02/25/24 02/25/24 18:20 18:30 18:40 Temperature Pulse Rate 63 55 L 52 L Respiratory 17 18 18 Rate Blood Pressure 95/56 95/56 90/49 O2 Sat by Pulse 96 95 97 Oximetry 02/25/24 02/25/24 02/25/24 19:30 20:00 22:06 Temperature 98.2 F Pulse Rate 53 L 65 65 Respiratory 19 16 18 Rate Blood Pressure 93/51 101/64 115/87 O2 Sat by Pulse 96 97 98 Oximetry Chest Pain MDM - MDM Was pt. sent in by a medical professional or institution (, PA, DATA CONTROL CLERK, urgent care, hospital, or longterm...) When possible be specific @ -No Did you speak to anyone other than the patient for history (EMS, parent, family, police, friend...)? What history was obtained from this source @ -Spoke with EMS for history Did you review nursing and triage notes (agree or disagree)? Why? @ -I reviewed and agree with nursing and triage notes Were old charts reviewed (outside hosp., previous admission, EMS record, old EKG, old radiological studies, urgent care reports/EKG's, longterm records)? Report findings @ -No old charts were reviewed Differential Diagnosis (chest pain, altered mental status, abdominal pain women, abdominal pain men, vaginal bleeding, weakness, fever, dyspnea, syncope, headache, dizziness, GI bleed, back pain, seizure, CVA, palpatations, mental health, musculoskeletal)? @ -Differential Chest Pain: Stable Angina, Unstable Angina, STEMI, NSTEMI Aortic Dissection, Pneumothorax, Musculoskeletal, Esophageal Spasm GERD, Cholecystitis, Pancreatitis, Zoster, this is not meant to be an all-inclusive list. EKG interpreted by me (3pts min.). @ -yes and demonstrates sinus bradycardia with a rate of 56. MS interval 136. QRS 116. QTc of 412. No acute ST segment elevations or depressions X-rays interpreted by me (1pt min.). @ -Yes and demonstrates no acute process CT interpreted by me (1pt min.). @ -None done U/S interpreted by me (1pt. min.). @ -None done What testing was considered but not performed or refused? (CT, X-rays, U/S, labs)? Why? @ -None What meds were considered but not given or refused? Why? @ -None Did you discuss the management of the patient with other professionals (professionals i.e. , PA, DATA CONTROL CLERK, lab, RT, psych nurse, social media marketing manager, nurse midwife, teacher, traffic division commanding officer, upper caser)? Give summary @ -No Was smoking cessation discussed for >3mins.? @ -No Was critical care preformed (if so, how long)? @ -No Were there social determinants of health that impacted care today? How? (Homelessness, low income, unemployed, alcoholism, drug addiction, transportation, low edu. Level, literacy, decrease access to med. care, intermediate, rehab)? @ -No Was there de-escalation of care discussed even if they declined (Discuss DNR or withdrawal of care, Hospice)? DNR status @ -No What co-morbidities impacted this encounter? (DM, HTN, Smoking, COPD, CAD, Cancer, CVA, ARF, Chemo, Hep., AIDS, mental health diagnosis, sleep apnea, morbid obesity)? @ -None Was patient admitted / discharged? Hospital course, mention meds given and route, prescriptions, significant lab abnormalities, going to OR and other pertinent info. @ -Upon arrival patient seen and evaluated in room 4. Thorough history and physical exam was performed. IV access was established. Laboratory studies are conducted. Patient's magnesium was replaced. Patient is reassured that all of his laboratory testing is negative. Patient will be discharged home at this time and instructed to follow-up with his primary care doctor. He is at high risk for readmission due to his frequent ER visits. Patient discharged in stable condition Undiagnosed new problem with uncertain prognosis? @ -No Drug Therapy requiring intensive monitoring for toxicity (Heparin, Nitro, Insulin, Cardizem)? @ -No Were any procedures done? @ -No Diagnosis/symptom? @ -Acute chest pain, acute hypomagnesemia Acute, or Chronic, or Acute on Chronic? @ -Acute Uncomplicated (without systemic symptoms) or Complicated (systemic symptoms)? @ -Complicated Side effects of treatment? @ -No Exacerbation, Progression, or Severe Exacerbation? @ -No Poses a threat to life or bodily function? How? (Chest pain, [place], [place], pneumonia, PE, COPD, DKA, ARF, appy, cholecystitis, CVA, Diverticulitis, Homicidal, Suicidal, threat to staff... and all critical care pts) @ -No Disposition Clinical Impression: Chest pain, Hypomagnesemia Disposition: HOME SELF-CARE Condition: Stable Instructions (If sedation given, give patient instructions): Chest Pain (ED) Is patient prescribed a controlled substance at d/c from ED?: No Referrals: Catherine Narayan MD [Primary Care Provider] - 1-2 days Time of Disposition: 21:58
[2024-02-25 22:12] VITALS: BP 115/87; RESP 18
== END 2024-02-25 22:13 | disposition home or self-care (01) ==
LOC: EC 17:39
CPT/HCPCS: 36415; 71046; 80053; 83690; 83735; 84484; 85025; 93005; 96365; 99285

== ENCOUNTER 2024-02-26 18:15 | Observation (INO) | payer MEDICARE ==
--- NOTE | 2024-02-26 20:16 | ED ---
General Adult HPI - General Chief complaint: Recheck/Abnormal Lab/Rx Stated complaint: HTN Time Seen by Provider: 02/26/24 18:53 Source: patient Mode of arrival: ambulatory Limitations: no limitations - History of Present Illness Initial comments: Dictation was produced using [employer] dictation software. please excuse any grammatical, word or spelling errors. Chief Complaint: 53-year-old male well-known to the emergency department presents to the ER for multiple complaints History of Present Illness: Patient is a 53-year-old male he is well-known to our emergency department. Patient states that he spoke with his primary care doctor and said that his primary care doctor wanted him to be admitted for concerns of labile blood pressures along with hide cold sensations, intermittent abdominal pain and chest pain. Patient states that his symptoms are very mild at the moment. Denies any fever, chills or night sweats. no Obvious sick contacts. The ROS documented in this emergency department record has been reviewed and confirmed by me. Those systems with pertinent positive or negative responses have been documented in the HPI. All other systems are other negative and/or noncontributory. - Related Data Home Medications Medication Instructions Recorded Confirmed Nitroglycerin Sl Tabs [Nitrostat] 0.4 mg SL Q5M PRN 08/20/23 02/27/24 Insulin Glargine,Hum.rec.anlog 15 units SQ HS 12/06/23 02/27/24 [Lantus Solostar Pen] Albuterol Inhaler [Ventolin Hfa 1 - 2 puff INHALATION RT-Q6H PRN 02/25/24 02/27/24 Inhaler] Albuterol Nebulized [Ventolin 2.5 mg INHALATION RT-QID PRN 02/25/24 02/27/24 Nebulized] Empagliflozin [Jardiance] 25 mg PO DAILY 02/25/24 02/27/24 Lidocaine 5% Patch [Lidoderm] 1 patch TRANSDERM DAILY 02/25/24 02/27/24 Omeprazole 40 mg PO DAILY 02/25/24 02/27/24 Tamsulosin [Flomax] 0.4 mg PO BID 02/25/24 02/27/24 amLODIPine [Norvasc] 10 mg PO DAILY 02/25/24 02/27/24 hydrOXYzine pamoate [Vistaril] 50 mg PO HS PRN 02/25/24 02/27/24 Benzonatate [Tessalon Perles] 100 mg PO TID PRN 02/27/24 02/27/24 Hyoscyamine Sulfate [Levsin-Sl] 0.125 mg SL QID PRN 02/27/24 02/27/24 Previous Rx's Medication Instructions Recorded ARIPiprazole [Abilify] 15 mg PO DAILY 30 Days #30 tab 12/13/23 Aspirin EC [Ecotrin Low Dose] 81 mg PO DAILY 30 Days #30 tab 12/13/23 Atorvastatin [Lipitor] 10 mg PO HS 30 Days #30 tab 12/13/23 Budesonide-Formot 160-4.5 Mcg 2 puff INHALATION RT-BID 30 Days 12/13/23 [Symbicort 160-4.5 Mcg Inhaler] #1 each Cholecalciferol (Vitamin D3) 50 mcg PO DAILY 30 Days #30 tab 12/13/23 [Vitamin D3 (50 Mcg = 2000 Iu)] Famotidine [Pepcid] 20 mg PO BID PRN 30 Days #60 tab 12/13/23 Ipratropium-Albuterol Nebulize 3 ml INHALATION RT-QID PRN 30 Days 12/13/23 [Duoneb 0.5 mg-3 mg/3 ml Soln] #1 each Montelukast [Singulair] 10 mg PO HS 30 Days #30 tab 12/13/23 Sertraline [Zoloft] 100 mg PO HS 30 Days #30 tab 12/13/23 hydrOXYzine pamoate [Vistaril] 25 mg PO DAILY PRN 30 Days #30 cap 12/13/23 Ondansetron Odt [Zofran ODT] 4 mg PO Q8HR PRN #10 tab 01/04/24 traZODone HCL [Desyrel] 100 mg PO HS tab 02/22/24 Allergies Allergy/AdvReac Type Severity Reaction Status Date / Time dicyclomine HCl [From Bentyl] Allergy Unknown Dyspnea Verified 02/27/24 11:48 latex Allergy Unknown Rash/Hives Verified 02/27/24 11:48 Benzoate Analogues Allergy Unknown Verified 02/27/24 11:48 nitrofurantoin Allergy Nausea Verified 02/27/24 11:48 [From Macrobid] Penicillins Allergy "[place] Verified 02/27/24 11:48 funny" adhesive AdvReac Unknown Itching Verified 02/27/24 11:48 ciprofloxacin AdvReac Unknown Nausea Verified 02/27/24 11:48 Macrolide Antibiotics AdvReac Unknown Nausea Verified 02/27/24 11:48 sulfamethoxazole AdvReac Unknown Unknown Verified 02/27/24 11:48 [From Bactrim] trimethoprim [From Bactrim] AdvReac Unknown Unknown Verified 02/27/24 11:48 diphenhydramine AdvReac Confusion Verified 02/27/24 11:48 [From Benadryl] Review of Systems ROS Statement: Those systems with pertinent positive or pertinent negative responses have been documented in the HPI. ROS Other: All systems not noted in ROS Statement are negative. Past Medical History Past Medical History: Asthma, Chest Pain / Angina, COPD, CVA/TIA, Diabetes Mellitus, GERD/Reflux, Hearing Disorder / Deafness, Hyperlipidemia, Hype rtension, Liver Disease, Osteoarthritis (OA), Pneumonia, Seizure Disorder, Sleep Apnea/CPAP/BIPAP Additional Past Medical History / Comment(s): states CVA at 35 yrs old, no we akness @ this time. states seizure at 35 yrs old., DDD- back & neck pain., carpal tunnel syndrome. Has [employer] public guardian. History of Any Multi-Drug Resistant Organisms: None Reported Past Surgical History: Heart Catheterization, Orthopedic Surgery Additional Past Surgical History / Comment(s): Cysts removed, left thumb s urgery, colonoscopy 08/24/2019. Skin tags removed from both eyes. Past Anesthesia/Blood Transfusion Reactions: Unable to Obtain, Motion Sickness, Postoperative Nausea & Vomiting (PONV) Past Psychological History: Anxiety, Bipolar, Depression, Schizophrenia Smoking Status: Current every day smoker Past Alcohol Use History: None Reported Past Drug Use History: None Reported - Past Family History Brother(s) Family Medical History: Diabetes Mellitus Additional Family Medical History / Comment(s): Patient has 2 brothers. One from complications from diabetes. The second is alive with diabetes. Sister(s) Family Medical History: Cancer Additional Family Medical History / Comment(s): Patient has one sister with breast cancer. Patient does not have any children. Father Family Medical History: Cancer Additional Family Medical History / Comment(s): Father in his 40s or 50s from colon cancer. Mother Family Medical History: Cancer Additional Family Medical History / Comment(s): Mother at age 68 from lung cancer. General Exam - General Exam Comments Initial Comments: PHYSICAL EXAM: General Impression: Alert and oriented x3, not in acute distress HEENT: Normocephalic atraumatic, extra-ocular movements intact, pupils equal and reactive to light bilaterally, mucous membranes moist. Cardiovascular: Heart regular rate and rhythm Chest: Able to complete full sentences, no retractions, no tachypnea Abdomen: abdomen soft, non-tender, non-distended, no organomegaly Musculoskeletal: Pulses present and equal in all extremities, no peripheral edema Motor: no focal deficits noted Neurological: CN II-XII grossly intact, no focal motor or sensory deficits noted Skin: Intact with no visualized rashes Psych: Normal affect and mood Limitations: no limitations Course Vital Signs 02/26/24 02/26/24 02/26/24 18:31 20:14 22:04 Temperature 97.8 F Pulse Rate 71 55 L 59 L Respiratory 15 20 20 Rate Blood Pressure 120/78 119/76 125/79 O2 Sat by Pulse 98 97 97 Oximetry EKG Findings - EKG Comments: EKG Findings:: My EKG interpretation: Ventricular rate 53, sinus bradycardia,. 147, QRS 110, QTc 435. No SD prolongation, no QTC prolongation, no ST or T-wave changes noted. Overall, this EKG is unremarkable Medical Decision Making - Medical Decision Making Was pt. sent in by a medical professional or institution ([facility] [place], INCEND[employer]IES SUPERVISOR, urgent care, hospital, or assisted...) When possible be specific @ -No Did you speak to anyone other than the patient for history (EMS, parent, family, police, friend...)? What history was obtained from this source @ -No Did you review nursing and triage notes (agree or disagree)? Why? @ -I reviewed and agree with nursing and triage notes Were old charts reviewed (outside hosp., previous admission, EMS record, old EKG, old radiological studies, urgent care reports/EKG's, assisted records)? Report findings @ -No old charts were reviewed Differential Diagnosis (chest pain, altered mental status, abdominal pain women, abdominal pain men, vaginal bleeding, musculoskeletal, weakness, fever, dyspnea, syncope, headache, dizziness, GI bleed, back pain, seizure, CVA, palpatations, mental health)? @ -Differential Chest Pain: Stable Angina, Unstable Angina, STEMI, NSTEMI Aortic Dissection, Pneumothorax, Musculoskeletal, Esophageal Spasm GERD, Cholecystitis, Pancreatitis, Zoster, t his is not meant to be an all-inclusive list. EKG interpreted by me (3pts min.). @ - X-rays interpreted by me (1pt min.). @ -Chest x-ray shows no acute processes CT interpreted by me (1pt min.). @ -None done U/S interpreted by me (1pt. min.). @ -None done What testing was considered but not performed or refused? (CT, X-rays, U/S, labs)? Why? @ -None What meds were considered but not given or refused? Why? @ -None Was smoking cessation discussed for >3mins.? @ -No Were there social determinants of health that impacted care today? How? (Homelessness, low income, unemployed, alcoholism, drug addiction, transportation, low edu. Level, literacy, decrease access to med. care, half-way, rehab)? @ -No Was there de-escalation of care discussed even if they declined (Discuss DNR or withdrawal of care, Hospice)? DNR status @ -No What co-morbidities impacted this encounter? (DM, HTN, Smoking, COPD, CAD, Cancer, CVA, ARF, Chemo, Hep., AIDS, mental health diagnosis, sleep apnea, morbid obesity)? @ -None Was patient admitted / discharged? Hospital course, mention meds given and route, prescriptions, significant lab abnormalities, going to OR and other pertinent info. @ -53-year-old male presents emergency department for multiple complaints. His complaint includes chest pain. He has extensive cardiac history. Vital signs upon arrival are within acceptable limits. Laboratory evaluation is unremarkable. Patient admitted observation. Case discussed with Dr. castanon for admission. Cardiology will be consulted Did you discuss the management of the patient with other professionals (professionals i.e. , PA, INCENDIARIES SUPERVISOR, lab, RT, psych nurse, social insurance adviser, marketing operations manager, teacher, credit review officer, pillowcase cutter)? Give summary @ -See above Was critical care preformed (if so, how long)? @ -No Undiagnosed new problem with uncertain prognosis? @ -No Drug Therapy requiring intensive monitoring for toxicity (Heparin, Nitro, Insulin, Cardizem)? @ -No Were any procedures done? @ -No Diagnosis/symptom? Acute, or Chronic, or Acute on Chronic? Uncomplicated (without systemic symptoms) or Complicated (systemic symptoms)? @ -Chest pain Side effects of treatment? @ -No Exacerbation, Progression, or Severe Exacerbation? @ -No Poses a threat to life or bodily function? How? (Chest pain, [place], [place], pneumonia, PE, COPD, DKA, ARF, appy, cholecystitis, CVA, Diverticulitis, Homicidal, Suicidal, threat to staff... and all critical care pts) @ -yes - Lab Data Result diagrams: 02/26/24 20:13 02/26/24 20:13 Lab Results 02/26/24 02/26/24 02/26/24 Range/Units 20:13 20:13 20:13 WBC 7.1 (3.8-10.6) k/uL RBC 4.69 (4.30-5.90) m/uL Hgb 14.6 (13.0-17.5) gm/dL Hct 41.6 (39.0-53.0) % MCV 88.7 (80.0-100.0) fL MCH 31.2 (25.0-35.0) pg MCHC 35.2 (31.0-37.0) g/dL RDW 13.0 (11.5-15.5) % Plt Count 164 (150-450) k/uL MPV 7.1 Neutrophils % 69 % Lymphocytes % 19 % Monocytes % 6 % Eosinophils % 4 % Basophils % 0 % Neutrophils # 4.9 (1.3-7.7) k/uL Lymphocytes # 1.3 (1.0-4.8) k/uL Monocytes # 0.4 (0-1.0) k/uL Eosinophils # 0.3 (0-0.7) k/uL Basophils # 0.0 (0-0.2) k/uL Sodium 139 (137-145) mmol/L Potassium 3.5 (3.5-5.1) mmol/L Chloride 110 H (98-107) mmol/L Carbon Dioxide 23 (22-30) mmol/L Anion Gap 6 mmol/L BUN 13 (9-20) mg/dL Creatinine 0.77 (0.66-1.25) mg/dL Est GFR (CKD-EPI)AfAm >90 (>60 ml/min/1.73 sqM) Est GFR (CKD-EPI)NonAf >90 (>60 ml/min/1.73 sqM) Glucose 98 (74-99) mg/dL Estimated Ave Glu mg/dL mg/dL Hemoglobin A1c (<=6.0) % Calcium 9.6 (8.4-10.2) mg/dL Total Bilirubin 0.8 (0.2-1.3) mg/dL AST 27 (17-59) U/L ALT 35 (4-49) U/L Alkaline Phosphatase 78 (38-126) U/L Troponin I <0.012 (0.000-0.034) ng/mL Total Protein 6.4 (6.3-8.2) g/dL Albumin 4.4 (3.5-5.0) g/dL Lipase 150 (23-300) U/L 02/26/24 Range/Units 20:13 WBC (3.8-10.6) k/uL RBC (4.30-5.90) m/uL Hgb (13.0-17.5) gm/dL Hct (39.0-53.0) % MCV (80.0-100.0) fL MCH (25.0-35.0) pg MCHC (31.0-37.0) g/dL RDW (11.5-15.5) % Plt Count (150-450) k/uL MPV Neutrophils % % Lymphocytes % % Monocytes % % Eosinophils % % Basophils % % Neutrophils # (1.3-7.7) k/uL Lymphocytes # (1.0-4.8) k/uL Monocytes # (0-1.0) k/uL Eosinophils # (0-0.7) k/uL Basophils # (0-0.2) k/uL Sodium (137-145) mmol/L Potassium (3.5-5.1) mmol/L Chloride (98-107) mmol/L Carbon Dioxide (22-30) mmol/L Anion Gap mmol/L BUN (9-20) mg/dL Creatinine (0.66-1.25) mg/dL Est GFR (CKD-EPI)AfAm (>60 ml/min/1.73 sqM) Est GFR (CKD-EPI)NonAf (>60 ml/min/1.73 sqM) Glucose (74-99) mg/dL Estimated Ave Glu mg/dL 174 mg/dL Hemoglobin A1c 7.7 H (<=6.0) % Calcium (8.4-10.2) mg/dL Total Bilirubin (0.2-1.3) mg/dL AST (17-59) U/L ALT (4-49) U/L Alkaline Phosphatase (38-126) U/L Troponin I (0.000-0.034) ng/mL Total Protein (6.3-8.2) g/dL Albumin (3.5-5.0) g/dL Lipase (23-300) U/L Disposition Clinical Impression: Chest pain Disposition: ADMITTED IP TO THIS HOSP Condition: Fair Decision Time: 21:02
[2024-02-26 20:28] LABS: Basophils % (A) 0 %; Eosinophils # (A) 0.3 k/uL (0-0.7); Eosinophils % (A) 4 %; HCT 41.6 % (39.0-53.0); HGB 14.6 gm/dL (13.0-17.5); Lymphocytes # (A) 1.3 k/uL (1.0-4.8); Lymphocytes % (A) 19 %; MCH 31.2 pg (25.0-35.0); MCHC 35.2 g/dL (31.0-37.0); MCV 88.7 fL (80.0-100.0); Mean Platelet Volume 7.1; Monocytes # (A) 0.4 k/uL (0-1.0); Monocytes % (A) 6 %; Neutrophils # (A) 4.9 k/uL (1.3-7.7); Neutrophils % (A) 69 %; Platelet Count 164 k/uL (150-450); RBC 4.69 m/uL (4.30-5.90); WBC 7.1 k/uL (3.8-10.6)
[2024-02-26 20:49] LABS: ALT 35 U/L (4-49); AST 27 U/L (17-59); African American GFR (CKD) >90 (>60 ml/min/1.73 sqM); Albumin 4.4 g/dL (3.5-5.0); Alkaline Phosphatase 78 U/L (38-126); Anion Gap 6 mmol/L; Blood Urea Nitrogen 13 mg/dL (9-20); Calcium 9.6 mg/dL (8.4-10.2); Carbon Dioxide 23 mmol/L (22-30); Chloride 110 mmol/L (98-107); Glucose 98 mg/dL (74-99); Lipase 150 U/L (23-300); Non-African American GFR(CKD) >90 (>60 ml/min/1.73 sqM); Potassium 3.5 mmol/L (3.5-5.1); Sodium 139 mmol/L (137-145); Total Bilirubin 0.8 mg/dL (0.2-1.3); Total Protein 6.4 g/dL (6.3-8.2)
--- NOTE | 2024-02-26 20:57 | XR ---
EXAMINATION TYPE: XR chest 1V portable DATE OF EXAM: 02/26/2024 8:47 PM CLINICAL INDICATION: Male, 53 years old with history of chest pain; [facility] COMPARISON: Chest radiographs from 02/25/2024 TECHNIQUE: XR chest 1V portable Frontal view of the chest. FINDINGS: Lungs/Pleura: There is no evidence of pleural effusion, focal consolidation, or pneumothorax. Pulmonary vascularity: Unremarkable. Heart/mediastinum: Cardiomediastinal silhouette is unremarkable. Musculoskeletal: No acute osseous pathology. IMPRESSION: No acute cardiopulmonary disease/process.
[2024-02-26] MEDS ORDERED: NITROGLYCERIN SL TABS 0.4 MG TAB SUBLINGUAL PRN (20:58)
[2024-02-26 22:47] LABS: Glucose,Whole Blood 102 mg/dL (70-110)
[2024-02-26] MEDS ORDERED: DEXTROSE 50% SYRINGE 50 ML IVP PRN ×2 (23:07)
[2024-02-26] MEDS: ASPIRIN 81 MG PO STA (23:11)
[2024-02-27 05:13] LABS: Glucose,Whole Blood 134 mg/dL (70-110)
[2024-02-27] MEDS: INSULIN ASPART (NovoLOG) 100 UNIT/ML VIAL SQ SCH (05:24)
[2024-02-27] MEDS: ASPIRIN 325 MG TAB PO SCH (08:34)
[2024-02-27 11:12] LABS: Chol/HDL Ratio 2.82 Ratio; LDL Cholesterol,Calculated 28.6 mg/dL (0.0-131.0)
--- NOTE | 2024-02-27 12:17 | P.CRDCN ---
History of Present Illness Consult date: 02/27/24 Consult reason: chest pain Chief complaint: chest pain History of present illness: History of present illness: Patient is a pleasant 53-year-old male with significant past medical history of hypertension, diabetes type 2, obstructive sleep apnea, history of stroke, depression, tobacco use who presents with complaints of chest pain. He does see Dr. Goel in the office. He reports for the past couple days he has been having stabbing constant chest pain and stomach pain. He did not have any change in symptoms with nitro. Nothing makes it better or worse. He does feel short of breath, nauseous, and sweats. He is ambulatory with a cane or walker. He denies any recent injuries to his chest. He is still feeling the same today. He does have chest wall tenderness on exam. EKG shows sinus bradycardia, incomplete right bundle branch block, nonspecific T wave abnormalities. Labs reviewed: WBC 7.1, hemoglobin 14.6, troponin negative x 3, creatinine 0.77, total cholesterol 110, LDL 28. Prior echocardiogram 04/24/2020 with EF 60-65%, mild concentric LVH, mild tricuspid regurgitation. Prior Lexiscan stress test 05/01/2021 was negative. Prior heart catheterization in 2018 revealed normal coronary arteries. REVIEW OF SYSTEMS: No fever or chills. No cough or expectoration. No diaphoresis. Patient denies headache, dizziness, blurred vision, double vision. No vomiting. No hematochezia. No hematemesis. Denies any black stools or blood in his stools. Denies dysuria or hematuria. No muscle weakness or numbness. Reports chest pain, stomach pain, shortness of breath, nausea. PHYSICAL EXAMINATION: This is a 53-year-old male in no apparent distress at the time of my examination. HEENT: Head is atraumatic, normocephalic. Pupils are equal, round. Sclerae anicteric. Conjunctivae are clear. Mucous membranes of the mouth are moist. Neck is supple. There is no jugular venous distention. No carotid bruit is heard. CHEST EXAMINATION: Lungs are clear to auscultation. No chest wall tenderness is noted on palpation or with deep breathing. HEART EXAMINATION: Heart regular rate and rhythm. S1, S2 heard. No murmurs, gallops or rub. ABDOMEN: Soft, nontender. Bowel sounds are heard. EXTREMITIES: 2+ peripheral pulses with no evidence of peripheral edema and no calf tenderness noted. NEUROLOGIC EXAMINATION: Patient is awake, alert and oriented x3. IMPRESSION AND PLAN: Chest pain, atypical, reproducible Abdominal pain Hypertension Diabetes type 2 Obstructive sleep apnea History of stroke Tobacco abuse PLAN: ACS ruled out. Discussed recommendation for outpatient stress testing, however, this is second admission in 2 months for chest pain and patient would like to have workup completed during hospitalization. Will check Lexiscan stress test on 02/29/2024. Check echo. Continue current medications. We will follow. I am dictating on behalf of Dr. Naresh Carias's history/physical and asses sment/plan. Past Medical History Past Medical History: Asthma, Chest Pain / Angina, COPD, CVA/TIA, Diabetes Mellitus, GERD/Reflux, Hearing Disorder / Deafness, Hyperlipidemia, Hypertension, Liver Disease, Osteoarthritis (OA), Pneumonia, Seizure Disorder, Sleep Apnea/CPAP/BIPAP Additional Past Medical History / Comment(s): states CVA at 35 yrs old, no weakness @ this time. states seizure at 35 yrs old., DDD- back & neck pain., car pal tunnel syndrome. Has [employer] public guardian. History of Any Multi-Drug Resistant Organisms: None Reported Past Surgical History: Heart Catheterization, Orthopedic Surgery Additional Past Surgical History / Comment(s): Cysts removed, left thumb surgery, colonoscopy 08/24/2019. Skin tags removed from both eyes. Past Anesthesia/Blood Transfusion Reactions: Unable to Obtain, Motion Sickness, Postoperative Nausea & Vomiting (PONV) Past Psychological History: Anxiety, Bipolar, Depression, Schizophrenia Additional Psychological History / Comment(s): Pt has a public legal guardian, lives in a very small alf. Goes to [employer] [employer]. Smoking Status: Current every day smoker Past Alcohol Use History: None Reported Additional Past Alcohol Use History / Comment(s): Previous ETOH history when younger. Past Drug Use History: None Reported Additional Drug Use History / Comment(s): pt denies any recreational drug use - Past Family History Brother(s) Family Medical History: Diabetes Mellitus Additional Family Medical History / Comment(s): Patient has 2 brothers. One from complications from diabetes. The second is alive with diabetes. Sister(s) Family Medical History: Cancer Additional Family Medical History / Comment(s): Patient has one sister with breast cancer. Patient does not have any children. Father Family Medical History: Cancer Additional Family Medical History / Comment(s): Father in his 40s or 50s from colon cancer. Mother Family Medical History: Cancer Additional Family Medical History / Comment(s): Mother at age 68 from lung cancer. Medications and Allergies Home Medications Medication Instructions Recorded Confirmed Type Nitroglycerin Sl Tabs [Nitrostat] 0.4 mg SL Q5M PRN 08/20/23 02/27/24 History Insulin Glargine,Hum.rec.anlog 15 units SQ HS 12/06/23 02/27/24 History [Lantus Solostar Pen] ARIPiprazole [Abilify] 15 mg PO DAILY 30 Days #30 tab 12/13/23 02/27/24 Rx Aspirin EC [Ecotrin Low Dose] 81 mg PO DAILY 30 Days #30 tab 12/13/23 02/27/24 Rx Atorvastatin [Lipitor] 10 mg PO HS 30 Days #30 tab 12/13/23 02/27/24 Rx Budesonide-Formot 160-4.5 Mcg 2 puff INHALATION RT-BID 30 Days 12/13/23 02/27/24 Rx [Symbicort 160-4.5 Mcg Inhaler] #1 each Cholecalciferol (Vitamin D3) 50 mcg PO DAILY 30 Days #30 tab 12/13/23 02/27/24 Rx [Vitamin D3 (50 Mcg = 2000 Iu)] Famotidine [Pepcid] 20 mg PO BID PRN 30 Days #60 tab 12/13/23 02/27/24 Rx Ipratropium-Albuterol Nebulize 3 ml INHALATION RT-QID PRN 30 Days 12/13/23 02/27/24 Rx [Duoneb 0.5 mg-3 mg/3 ml Soln] #1 each Montelukast [Singulair] 10 mg PO HS 30 Days #30 tab 12/13/23 02/27/24 Rx Sertraline [Zoloft] 100 mg PO HS 30 Days #30 tab 12/13/23 02/27/24 Rx hydrOXYzine pamoate [Vistaril] 25 mg PO DAILY PRN 30 Days #30 cap 12/13/23 02/27/24 Rx Ondansetron Odt [Zofran ODT] 4 mg PO Q8HR PRN #10 tab 01/04/24 02/27/24 Rx traZODone HCL [Desyrel] 100 mg PO HS tab 02/22/24 02/27/24 Rx Albuterol Inhaler [Ventolin Hfa 1 - 2 puff INHALATION RT-Q6H PRN 02/25/24 02/27/24 History Inhaler] Albuterol Nebulized [Ventolin 2.5 mg INHALATION RT-QID PRN 02/25/24 02/27/24 History Nebulized] Empagliflozin [Jardiance] 25 mg PO DAILY 02/25/24 02/27/24 History Lidocaine 5% Patch [Lidoderm] 1 patch TRANSDERM DAILY 02/25/24 02/27/24 History Omeprazole 40 mg PO DAILY 02/25/24 02/27/24 History Tamsulosin [Flomax] 0.4 mg PO BID 02/25/24 02/27/24 History amLODIPine [Norvasc] 10 mg PO DAILY 02/25/24 02/27/24 History hydrOXYzine pamoate [Vistaril] 50 mg PO HS PRN 02/25/24 02/27/24 History Benzonatate [Tessalon Perles] 100 mg PO TID PRN 02/27/24 02/27/24 History Hyoscyamine Sulfate [Levsin-Sl] 0.125 mg SL QID PRN 02/27/24 02/27/24 History Allergies Allergy/AdvReac Type Severity Reaction Status Date / Time dicyclomine HCl [From Bentyl] Allergy Unknown Dyspnea Verified 02/27/24 11:48 latex Allergy Unknown Rash/Hives Verified 02/27/24 11:48 Benzoate Analogues Allergy Unknown Verified 02/27/24 11:48 nitrofurantoin Allergy Nausea Verified 02/27/24 11:48 [From Macrobid] Penicillins Allergy "[place] Verified 02/27/24 11:48 funny" adhesive AdvReac Unknown Itching Verified 02/27/24 11:48 ciprofloxacin AdvReac Unknown Nausea Verified 02/27/24 11:48 Macrolide Antibiotics AdvReac Unknown Nausea Verified 02/27/24 11:48 sulfamethoxazole AdvReac Unknown Unknown Verified 02/27/24 11:48 [From Bactrim] trimethoprim [From Bactrim] AdvReac Unknown Unknown Verified 02/27/24 11:48 diphenhydramine AdvReac Confusion Verified 02/27/24 11:48 [From Benadryl] Physical Exam Vitals: Vital Signs Temp Pulse Pulse Resp BP BP Pulse Ox 02/27/24 07:20 97.7 F 49 L 17 99/63 97 02/27/24 02:00 49 L 02/27/24 01:54 97.6 F 49 L 17 99/66 98 02/26/24 22:38 98.0 F 51 L 18 101/64 96 02/26/24 22:30 51 L 02/26/24 22:04 59 L 20 125/79 97 02/26/24 20:14 55 L 20 119/76 97 02/26/24 18:31 97.8 F 71 15 120/78 98 Intake and Output 02/26/24 02/27/24 02/27/24 22:59 06:59 14:59 Output Total 400 1000 350 Balance -400 -1000 -350 Output: Urine 400 1000 350 Other: Voiding Method Urinal Urinal Weight 80.739 kg Results 02/26/24 20:13 02/26/24 20:13 Cardiac Enzymes 02/26/24 02/26/24 02/27/24 Range/Units 20:13 20:13 00:00 AST 27 (17-59) U/L Troponin I <0.012 <0.012 (0.000-0.034) ng/mL 02/27/24 Range/Units 03:20 AST (17-59) U/L Troponin I <0.012 (0.000-0.034) ng/mL Lipids 02/27/24 Range/Units 03:20 Triglycerides 212.00 H (0.00-149.00) mg/dL Cholesterol 110.00 (0.00-200.00) mg/dL HDL Cholesterol 39.00 L (40.00-60.00) mg/dL Cholesterol/HDL Ratio 2.82 Ratio CBC 02/26/24 Range/Units 20:13 WBC 7.1 (3.8-10.6) k/uL RBC 4.69 (4.30-5.90) m/uL Hgb 14.6 (13.0-17.5) gm/dL Hct 41.6 (39.0-53.0) % Plt Count 164 (150-450) k/uL Comprehensive Metabolic Panel 02/26/24 Range/Units 20:13 Sodium 139 (137-145) mmol/L Potassium 3.5 (3.5-5.1) mmol/L Chloride 110 H (98-107) mmol/L Carbon Dioxide 23 (22-30) mmol/L BUN 13 (9-20) mg/dL Creatinine 0.77 (0.66-1.25) mg/dL Glucose 98 (74-99) mg/dL Calcium 9.6 (8.4-10.2) mg/dL AST 27 (17-59) U/L ALT 35 (4-49) U/L Alkaline Phosphatase 78 (38-126) U/L Total Protein 6.4 (6.3-8.2) g/dL Albumin 4.4 (3.5-5.0) g/dL Current Medications Generic Name Dose Route Start Last Admin Trade Name Freq PRN Reason Stop Dose Admin Aspirin 325 mg 02/27/24 09:00 02/27/24 08:34 Aspirin 325 Mg Tab PO 325 mg DAILY PJ Administration Dextrose/Water 25 ml 02/26/24 23:07 Dextrose 50% Syringe 50 Ml IVP PER PROTOCOL PRN Hypoglycemia Protocol Dextrose/Water 50 ml 02/26/24 23:07 Dextrose 50% Syringe 50 Ml IVP PER PROTOCOL PRN Hypoglycemia Protocol Insulin Aspart 0 unit 02/27/24 07:30 02/27/24 05:24 Insulin Aspart (Novolog) 100 Unit/Ml Vial SQ Not Given ACHS PJ Protocol Nitroglycerin 0.4 mg 02/26/24 20:58 Nitroglycerin Sl Tabs 0.4 Mg Tab SUBLINGUAL Q5M PRN Chest Pain Intake and Output 02/26/24 02/27/24 02/27/24 22:59 06:59 14:59 Output Total 400 1000 350 Balance -400 -1000 -350 Output: Urine 400 1000 350 Other: Voiding Method Urinal Urinal Weight 80.739 kg 02/26/24 20:13 02/26/24 20:13
[2024-02-27 12:27] LABS: Glucose,Whole Blood 157 mg/dL (70-110)
[2024-02-27 15:05] VITALS: BMI 30.5
[2024-02-27] MEDS ORDERED: HYOSCYAMINE SULFATE 0.125 MG TAB PO PRN (15:44)
[2024-02-27] MEDS ORDERED: hydrOXYzine pamoate 25 MG CAP PO PRN (15:44)
[2024-02-27] MEDS ORDERED: FAMOTIDINE 20 MG TAB PO PRN (15:44)
[2024-02-27] MEDS ORDERED: ONDANSETRON 4 MG/2 ML VIAL IVP PRN (15:48)
[2024-02-27 17:07] LABS: Glucose,Whole Blood 146 mg/dL (70-110)
[2024-02-27] MEDS: SYMBICORT 160-4.5 MCG INHALER INHALATION SCH (18:11)
--- NOTE | 2024-02-27 18:32 | P.HPIM ---
History of Present Illness H&P Date: 02/27/24 Chief Complaint: Chest pain 53-year-old male with significant past medical history of hypertension, diabetes type 2, obstructive sleep apnea, history of stroke, depression, tobacco use who presents with complaints of chest pain. He reports for the past couple days he has been having stabbing constant chest pain and stomach pain. He did not have any change in symptoms with nitro. Nothing makes it better or worse. He does feel short of breath, nauseous, and sweats. He is ambulatory with a cane or walker. He denies any recent injuries to his chest. He is still fee ling the same today. EKG shows sinus bradycardia, incomplete right bundle branch block, nonspecific T wave abnormalities. Labs reviewed: WBC 7.1, hemoglobin 14.6, troponin negative x 3, creatinine 0.77, total cholesterol 110, LDL 28. Prior echocardiogram 04/24/2020 with EF 60-65%, mild concentric LVH, mild tricuspid regurgitation. Prior Lexiscan stress test 05/01/2021 was negative. Prior heart catheterization in 2018 revealed normal coronary arteries. Review of Systems REVIEW OF SYSTEMS: CONSTITUTIONAL: No fever, no malaise, no fatigue. HEENT: No recent visual problems or hearing problems. Denied any sore throat. CARDIOVASCULAR: No chest pain, orthopnea, PND, no palpitations, no syncope. PULMONARY: No shortness of breath, no cough, no hemoptysis. GASTROINTESTINAL: No diarrhea, no nausea, no vomiting, no abdominal pain. NEUROLOGICAL: No headaches, no weakness, no numbness. HEMATOLOGICAL: Denies any bleeding or petechiae. GENITOURINARY: Denies any burning micturition, frequency, or urgency. MUSCULOSKELETAL/RHEUMATOLOGICAL: Denies any joint pain, swelling, or any muscle pain. ENDOCRINE: Denies any polyuria or polydipsia. The rest of the 14-point review of systems is negative. Past Medical History Past Medical History: Asthma, Chest Pain / Angina, COPD, CVA/TIA, Diabetes Mellitus, GERD/Reflux, Hearing Disorder / Deafness, Hyperlipidemia, Hypertension, Liver Disease, Osteoarthritis (OA), Pneumonia, Seizure Disorder, Sleep Apnea/CPAP/BIPAP Additional Past Medical History / Comment(s): states CVA at 35 yrs old, no weakness @ this time. states seizure at 35 yrs old., DDD- back & neck pain., carpal tunnel syndrome. Has [facility] public guardian. History of Any Multi-Drug Resistant Organisms: None Reported Past Surgical History: Heart Catheterization, Orthopedic Surgery Additional Past Surgical History / Comment(s): Cysts removed, left thumb surgery, colonoscopy 08/24/2019. Skin tags removed from both eyes. Past Anesthesia/Blood Transfusion Reactions: Unable to Obtain, Motion Sickness, Postoperative Nausea & Vomiting (PONV) Past Psychological History: Anxiety, Bipolar, Depression, Schizophrenia Additional Psychological History / Comment(s): Pt has a public legal guardian, lives in a very small assisted. Goes to [employer]. Smoking Status: Current every day smoker Past Alcohol Use History: None Reported Additional Past Alcohol Use History / Comment(s): Previous ETOH history when younger. Past Drug Use History: None Reported Additional Drug Use History / Comment(s): pt denies any recreational drug use - Past Family History Brother(s) Family Medical History: Diabetes Mellitus Additional Family Medical History / Comment(s): Patient has 2 brothers. One from complications from diabetes. The second is alive with diabetes. Sister(s) Family Medical History: Cancer Additional Family Medical History / Comment(s): Patient has one sister with breast cancer. Patient does not have any children. Father Family Medical History: Cancer Additional Family Medical History / Comment(s): Father in his 40s or 50s from colon cancer. Mother Family Medical History: Cancer Additional Family Medical History / Comment(s): Mother at age 68 from lung cancer. Medications and Allergies Home Medications Medication Instructions Recorded Confirmed Type Nitroglycerin Sl Tabs [Nitrostat] 0.4 mg SL Q5M PRN 08/20/23 02/27/24 History Insulin Glargine,Hum.rec.anlog 15 units SQ HS 12/06/23 02/27/24 History [Lantus Solostar Pen] ARIPiprazole [Abilify] 15 mg PO DAILY 30 Days #30 tab 12/13/23 02/27/24 Rx Aspirin EC [Ecotrin Low Dose] 81 mg PO DAILY 30 Days #30 tab 12/13/23 02/27/24 Rx Atorvastatin [Lipitor] 10 mg PO HS 30 Days #30 tab 12/13/23 02/27/24 Rx Budesonide-Formot 160-4.5 Mcg 2 puff INHALATION RT-BID 30 Days 12/13/23 02/27/24 Rx [Symbicort 160-4.5 Mcg Inhaler] #1 each Cholecalciferol (Vitamin D3) 50 mcg PO DAILY 30 Days #30 tab 12/13/23 02/27/24 Rx [Vitamin D3 (50 Mcg = 2000 Iu)] Famotidine [Pepcid] 20 mg PO BID PRN 30 Days #60 tab 12/13/23 02/27/24 Rx Ipratropium-Albuterol Nebulize 3 ml INHALATION RT-QID PRN 30 Days 12/13/23 02/27/24 Rx [Duoneb 0.5 mg-3 mg/3 ml Soln] #1 each Montelukast [Singulair] 10 mg PO HS 30 Days #30 tab 12/13/23 02/27/24 Rx Sertraline [Zoloft] 100 mg PO HS 30 Days #30 tab 12/13/23 02/27/24 Rx hydrOXYzine pamoate [Vistaril] 25 mg PO DAILY PRN 30 Days #30 cap 12/13/23 02/27/24 Rx Ondansetron Odt [Zofran ODT] 4 mg PO Q8HR PRN #10 tab 01/04/24 02/27/24 Rx traZODone HCL [Desyrel] 100 mg PO HS tab 02/22/24 02/27/24 Rx Albuterol Inhaler [Ventolin Hfa 1 - 2 puff INHALATION RT-Q6H PRN 02/25/24 02/27/24 History Inhaler] Albuterol Nebulized [Ventolin 2.5 mg INHALATION RT-QID PRN 02/25/24 02/27/24 History Nebulized] Empagliflozin [Jardiance] 25 mg PO DAILY 02/25/24 02/27/24 History Lidocaine 5% Patch [Lidoderm] 1 patch TRANSDERM DAILY 02/25/24 02/27/24 History Omeprazole 40 mg PO DAILY 02/25/24 02/27/24 History Tamsulosin [Flomax] 0.4 mg PO BID 02/25/24 02/27/24 History amLODIPine [Norvasc] 10 mg PO DAILY 02/25/24 02/27/24 History hydrOXYzine pamoate [Vistaril] 50 mg PO HS PRN 02/25/24 02/27/24 History Benzonatate [Tessalon Perles] 100 mg PO TID PRN 02/27/24 02/27/24 History Hyoscyamine Sulfate [Levsin-Sl] 0.125 mg SL QID PRN 02/27/24 02/27/24 History Allergies Allergy/AdvReac Type Severity Reaction Status Date / Time dicyclomine HCl [From Bentyl] Allergy Unknown Dyspnea Verified 02/27/24 11:48 latex Allergy Unknown Rash/Hives Verified 02/27/24 11:48 Benzoate Analogues Allergy Unknown Verified 02/27/24 11:48 nitrofurantoin Allergy Nausea Verified 02/27/24 11:48 [From Macrobid] Penicillins Allergy "[place] Verified 02/27/24 11:48 funny" adhesive AdvReac Unknown Itching Verified 02/27/24 11:48 ciprofloxacin AdvReac Unknown Nausea Verified 02/27/24 11:48 Macrolide Antibiotics AdvReac Unknown Nausea Verified 02/27/24 11:48 sulfamethoxazole AdvReac Unknown Unknown Verified 02/27/24 11:48 [From Bactrim] trimethoprim [From Bactrim] AdvReac Unknown Unknown Verified 02/27/24 11:48 diphenhydramine AdvReac Confusion Verified 02/27/24 11:48 [From Benadryl] Physical Exam Vitals: Vital Signs Temp Pulse Pulse Resp BP BP Pulse Ox 02/27/24 07:20 97.7 F 49 L 17 99/63 97 02/27/24 02:00 49 L 02/27/24 01:54 97.6 F 49 L 17 99/66 98 02/26/24 22:38 98.0 F 51 L 18 101/64 96 02/26/24 22:30 51 L 02/26/24 22:04 59 L 20 125/79 97 02/26/24 20:14 55 L 20 119/76 97 02/26/24 18:31 97.8 F 71 15 120/78 98 Intake and Output 02/26/24 02/27/24 02/27/24 22:59 06:59 14:59 Output Total 400 1000 350 Balance -400 -1000 -350 Output: Urine 400 1000 350 Other: Voiding Method Urinal Urinal Weight 80.739 kg 53-year-old male in no apparent distress at the time of my examination. HEENT: Head is atraumatic, normocephalic. Pupils are equal, round. Sclerae anicteric. Conjunctivae are clear. Mucous membranes of the mouth are moist. Neck is supple. There is no jugular venous distention. No carotid bruit is heard. CHEST EXAMINATION: Lungs are clear to auscultation. No chest wall tenderness is noted on palpation or with deep breathing. HEART EXAMINATION: Heart regular rate and rhythm. S1, S2 heard. No murmurs, g allops or rub. ABDOMEN: Soft, nontender. Bowel sounds are heard. EXTREMITIES: 2+ peripheral pulses with no evidence of peripheral edema and no calf tenderness noted. NEUROLOGIC EXAMINATION: Patient is awake, alert and oriented x3. Results CBC & Chem 7: 02/26/24 20:13 02/26/24 20:13 Labs: Abnormal Lab Results - Last 24 Hours (Table) 02/26/24 02/26/24 02/27/24 Range/Units 20:13 20:13 03:20 Chloride 110 H (98-107) mmol/L POC Glucose (mg/dL) (70-110) mg/dL Hemoglobin A1c 7.7 H (<=6.0) % Triglycerides 212.00 H (0.00-149.00) mg/dL VLDL Cholesterol, Calc 42.40 H (5.00-40.00) mg/dL HDL Cholesterol 39.00 L (40.00-60.00) mg/dL 02/27/24 Range/Units 05:10 Chloride (98-107) mmol/L POC Glucose (mg/dL) 134 H (70-110) mg/dL Hemoglobin A1c (<=6.0) % Triglycerides (0.00-149.00) mg/dL VLDL Cholesterol, Calc (5.00-40.00) mg/dL HDL Cholesterol (40.00-60.00) mg/dL Thrombosis Risk Factor Assmnt - Choose All That Apply Any of the Below Risk Factors Present?: Yes Each Factor Represents 1 point: Age 41-60 years, Obesity (BMI >25) Other Risk Factors: No Other congenital or acquired thrombophilia - If yes, enter type in comment: No Thrombosis Risk Factor Assessment Total Risk Factor Score: 2 Thrombosis Risk Factor Assessment Level: Low Risk Assessment and Plan Assessment: 1. Chest pain rule out acute coronary syndrome -Patient has been admitted to telemetry; for EKG trend troponin -Recommend 2D echo -We will continue with aspirin, beta-blockers and statin therapy Consult cardiology 2. Hypertension; amlodipine 10 mg daily 3. Diabetes mellitus type 2; Lantus 15 units SQ nightly; we will hold while inpatient; Accu-Cheks before every meal and at bedtime with insulin sliding scale; Jardiance 10 mg daily 4.. Hyperlipidemia; Lipitor 10 mg daily 5. Asthma/COPD; not in exacerbation; continue with home inhaler therapy; Singulair 10 mg daily 6. Depression/bipolar disorder; continue home regimen
[2024-02-27] MEDS: ACETAMINOPHEN TAB 325 MG TAB PO PRN (18:44)
[2024-02-27 21:28] LABS: Glucose,Whole Blood 133 mg/dL (70-110)
[2024-02-27] MEDS: TAMSULOSIN 0.4 MG CAP.ER.24H PO SCH (21:42)
[2024-02-27] MEDS: SERTRALINE 100 MG TAB PO SCH (21:42)
[2024-02-27] MEDS: ATORVASTATIN 10 MG TAB PO SCH (21:42)
[2024-02-27] MEDS: MONTELUKAST 10 MG TAB PO SCH (21:42)
[2024-02-27] MEDS: traZODone HCL 100 MG TAB PO SCH (21:42)
[2024-02-28 06:18] LABS: Glucose,Whole Blood 172 mg/dL (70-110)
[2024-02-28] MEDS: ARIPiprazole 15 MG TAB PO SCH (09:00)
[2024-02-28] MEDS: amLODIPine 10 MG TAB PO SCH (09:00)
[2024-02-28] MEDS: DAPAGLIFLOZIN PROPANEDIOL 10 MG TABLET PO SCH (09:00)
[2024-02-28] MEDS: CHOLECALCIFEROL 25 MCG (1000 IU) TABLET PO SCH (09:00)
[2024-02-28] MEDS: ASPIRIN 81 MG PO SCH (09:00)
[2024-02-28] MEDS: ALBUTEROL NEBULIZED 2.5 MG/3 ML INHALATION PRN (09:00)
[2024-02-28] MEDS: PANTOPRAZOLE 40 MG TABLET PO SCH (09:25)
[2024-02-28 12:04] LABS: Glucose,Whole Blood 162 mg/dL (70-110)
--- NOTE | 2024-02-28 14:11 | P.PN ---
Subjective Progress Note Date: 02/28/24 History of present illness: Patient is a pleasant 53-year-old male with significant past medical history of hypertension, diabetes type 2, obstructive sleep apnea, history of stroke, depression, tobacco use who presents with complaints of chest pain. He does see Dr. Goel in the office. He reports for the past couple days he has been having stabbing constant chest pain and stomach pain. He did not have any change in symptoms with nitro. Nothing makes it better or worse. He does feel short of breath, nauseous, and sweats. He is ambulatory with a cane or walker. He denies any recent injuries to his chest. He is still feeling the same today. He does have chest wall tenderness on exam. EKG shows sinus bradycardia, incomplete right bundle branch block, nonspecific T wave abnormalities. Labs reviewed: WBC 7.1, hemoglobin 14.6, troponin negative x 3, creatinine 0.77, total cholesterol 110, LDL 28. Prior echocardiogram 04/24/2020 with EF 60-65%, mild concentric LVH, mild tricuspid regurgitation. Prior Lexiscan stress test 05/01/2021 was negative. Prior heart catheterization in 2018 revealed normal coronary arteries. 02/28/24 Patient reports that he is still having chest pain and abdominal pain same as yesterday. He states he does not have an appetite and is not eating much. He is requesting pain medication. PHYSICAL EXAMINATION: This is a 53-year-old male in no apparent distress at the time of my examination. HEENT: Head is atraumatic, normocephalic. Pupils are equal, round. Sclerae anicteric. Conjunctivae are clear. Mucous membranes of the mouth are moist. Neck is supple. There is no jugular venous distention. No carotid bruit is heard. CHEST EXAMINATION: Lungs are clear to auscultation. No chest wall tenderness is noted on palpation or with deep breathing. HEART EXAMINATION: Heart regular rate and rhythm. S1, S2 heard. No murmurs, gallops or rub. ABDOMEN: Soft, nontender. Bowel sounds are heard. EXTREMITIES: 2+ peripheral pulses with no evidence of peripheral edema and no calf tenderness noted. NEUROLOGIC EXAMINATION: Patient is awake, alert and oriented x3. IMPRESSION AND PLAN: Chest pain, atypical, reproducible Abdominal pain Hypertension Diabetes type 2 Obstructive sleep apnea History of stroke Tobacco abuse PLAN: ACS ruled out. Discussed recommendation for outpatient stress testing, however, this is second admission in 2 months for chest pain and patient would like to have workup completed during hospitalization. Will check Lexiscan stress test on 02/29/2024. Check echo. Continue current medications. Further workup of abdominal pain as per medicine team. We will follow. I am dictating on behalf of Dr. Naresh Carias's history/physical and assessment/plan. Objective - Vital Signs Vital signs: Vital Signs Temp 97.7 F 02/28/24 07:00 Pulse 54 L 02/28/24 09:11 Resp 16 02/28/24 07:00 BP 107/68 02/28/24 07:00 Pulse Ox 98 02/28/24 09:05 FiO2 Intake & Output 02/27/24 02/28/24 02/28/24 18:59 06:59 18:59 Intake Total 118 Output Total 1000 0 281 Balance -882 -2049 -281 Weight 80.739 kg Intake: Oral 118 Output: Urine 1000 2049 281 Other: Voiding Method Urinal Urinal # Voids 2 # Bowel Movements 1 - Labs CBC & Chem 7: 02/26/24 20:13 02/26/24 20:13 Labs: Abnormal Lab Results - Last 24 Hours (Table) 02/27/24 02/27/24 02/28/24 Range/Units 17:05 21:26 06:17 POC Glucose (mg/dL) 146 H 133 H 172 H (70-110) mg/dL 02/28/24 Range/Units 12:02 POC Glucose (mg/dL) 162 H (70-110) mg/dL
[2024-02-28] MEDS: KETOROLAC 15 MG/ML 1 ML VIAL IVP STA (17:12)
[2024-02-28 17:19] LABS: Glucose,Whole Blood 142 mg/dL (70-110)
[2024-02-28 20:33] LABS: Glucose,Whole Blood 249 mg/dL (70-110)
--- NOTE | 2024-02-28 21:05 | P.PN ---
Subjective 53-year-old male with significant past medical history of hypertension, diabetes type 2, obstructive sleep apnea, history of stroke, depression, tobacco use who presents with complaints of chest pain. He reports for the past couple days he has been having stabbing constant chest pain and stomach pain. He did not have any change in symptoms with nitro. Nothing makes it better or worse. He does feel short of breath, nauseous, and sweats. He is ambulatory with a cane or walker. He denies any recent injuries to his chest. He is still feel ing the same today. EKG shows sinus bradycardia, incomplete right bundle branch block, nonspecific T wave abnormalities. Labs reviewed: WBC 7.1, hemoglobin 14.6, troponin negative x 3, creatinine 0.77, total cholesterol 110, LDL 28. Prior echocardiogram 04/24/2020 with EF 60-65%, mild concentric LVH, mild tricuspid regurgitation. Prior Lexiscan stress test 05/01/2021 was negative. Prior heart catheterization in 2018 revealed normal coronary arteries. 02/28/24 Patient with mild chest pain, Toradol 50 mg x 1 given He is on aspirin 81 mg and 325 mg, we discontinued the latter. Patient is planned to undergo stress test tomorrow Start Protonix for GI prophylaxis Objective - Vital Signs Vital signs: Vital Signs Temp 98.1 F 02/28/24 19:12 Pulse 58 L 02/28/24 19:12 Resp 16 02/28/24 19:12 BP 94/56 02/28/24 19:12 Pulse Ox 96 02/28/24 19:12 FiO2 Intake & Output 02/28/24 02/28/24 02/29/24 06:59 18:59 06:59 Intake Total 118 Output Total 2049 281 Balance -2049 -163 Intake: Oral 118 Output: Urine 2049 281 Other: Voiding Method Urinal # Voids 3 # Bowel Movements 1 - Exam GENERAL: The patient is alert and oriented x3, not in any acute distress. Well developed, well nourished. HEENT: Pupils are round and equally reacting to light. EOMI. No scleral icterus. No conjunctival pallor. Normocephalic, atraumatic. No pharyngeal erythema. No thyromegaly. CARDIOVASCULAR: S1 and S2 present. No murmurs, rubs, or gallops. PULMONARY: Chest is clear to auscultation, no wheezing , no crackles. ABDOMEN: Soft, nontender, nondistended, normoactive bowel sounds. No palpable organomegaly. MUSCULOSKELETAL: No joint swelling or deformity. EXTREMITIES: No cyanosis, clubbing, or pedal edema. NEUROLOGICAL: Gross neurological examination did not reveal any focal deficits. SKIN: No rashes. no petechiae. - Labs CBC & Chem 7: 02/26/24 20:13 02/26/24 20:13 Labs: Abnormal Lab Results - Last 24 Hours (Table) 02/27/24 02/28/24 02/28/24 Range/Units 21:26 06:17 12:02 POC Glucose (mg/dL) 133 H 172 H 162 H (70-110) mg/dL 02/28/24 02/28/24 Range/Units 17:17 20:32 POC Glucose (mg/dL) 142 H 249 H (70-110) mg/dL Assessment and Plan Assessment: 1. Chest pain rule out acute coronary syndrome -Patient has been admitted to telemetry; for EKG trend troponin -Recommend 2D echo -We will continue with aspirin, beta-blockers and statin therapy Consult cardiology -Plan for stress test on 02/28 2. Hypertension; amlodipine 10 mg daily 3. Diabetes mellitus type 2; Lantus 15 units SQ nightly; we will hold while inpatient; Accu-Cheks before every meal and at bedtime with insulin sliding scale; Jardiance 10 mg daily 4.. Hyperlipidemia; Lipitor 10 mg daily 5. Asthma/COPD; not in exacerbation; continue with home inhaler therapy; Singulair 10 mg daily 6. Depression/bipolar disorder; continue home regimen DVT prophylaxis subcutaneous heparin GI prophylaxis Protonix
[2024-02-28] MEDS: HEPARIN SODIUM,PORCINE 5,000 UNIT/ML 1 ML VIAL SQ SCH (21:17)
[2024-02-29] MEDS: hydrOXYzine HCL 25 MG TAB PO PRN (02:54)
[2024-02-29 05:49] LABS: Glucose,Whole Blood 138 mg/dL (70-110)
[2024-02-29] MEDS ORDERED: AMINOPHYLLINE 500 MG/20 ML VIAL IV PRN ×2 (09:00→12:22)
[2024-02-29] MEDS ORDERED: REGADENOSON 0.4 MG/5 ML SYRINGE IV PRN ×2 (09:00→12:22)
[2024-02-29] MEDS ORDERED: CAFFEINE CITRATE 60 MG/3 ML VIAL IV PRN ×2 (09:00→12:22)
[2024-02-29 09:31] VITALS: TEMP 98
[2024-02-29] MEDS ORDERED: REGADENOSON 0.4 MG/5 ML SYRINGE IV ONE (11:32)
--- NOTE | 2024-02-29 12:33 | P.PN ---
Subjective Progress Note Date: 02/29/24 History of present illness: Patient is a pleasant 53-year-old male with significant past medical history of hypertension, diabetes type 2, obstructive sleep apnea, history of stroke, depression, tobacco use who presents with complaints of chest pain. He does see Dr. Goel in the office. He reports for the past couple days he has been having stabbing constant chest pain and stomach pain. He did not have any change in symptoms with nitro. Nothing makes it better or worse. He does feel short of breath, nauseous, and sweats. He is ambulatory with a cane or walker. He denies any recent injuries to his chest. He is still feeling the same today. He does have chest wall tenderness on exam. EKG shows sinus bradycardia, incomplete right bundle branch block, nonspecific T wave abnormalities. Labs reviewed: WBC 7.1, hemoglobin 14.6, troponin negative x 3, creatinine 0.77, total cholesterol 110, LDL 28. Prior echocardiogram 04/24/2020 with EF 60-65%, mild concentric LVH, mild tricuspid regurgitation. Prior Lexiscan stress test 05/01/2021 was negative. Prior heart catheterization in 2018 revealed normal coronary arteries. 02/28/24 Patient reports that he is still having chest pain and abdominal pain same as yesterday. He states he does not have an appetite and is not eating much. He is requesting pain medication. 02/28 Patient initially refused Lexiscan stress test this morning but after discussion, he is agreeable to move forward. No chest pain at this time. No shortness of breath. Blood pressure 117/77, heart rate 54, pulse ox 97% on room air. Echocardiogram is pending. PHYSICAL EXAMINATION: This is a 53-year-old male in no apparent distress at the time of my examination. HEENT: Head is atraumatic, normocephalic. Pupils are equal, round. Sclerae anicteric. Conjunctivae are clear. Mucous membranes of the mouth are moist. Neck is supple. There is no jugular venous distention. No carotid bruit is heard. CHEST EXAMINATION: Lungs are clear to auscultation. No chest wall tenderness is noted on palpation or with deep breathing. HEART EXAMINATION: Heart regular rate and rhythm. S1, S2 heard. No murmurs, gallops or rub. ABDOMEN: Soft, nontender. Bowel sounds are heard. EXTREMITIES: 2+ peripheral pulses with no evidence of peripheral edema and no calf tenderness noted. NEUROLOGIC EXAMINATION: Patient is awake, alert and oriented x3. IMPRESSION AND PLAN: Chest pain, atypical, reproducible, acute coronary syndrome has been ruled out Abdominal pain Hypertension Diabetes type 2 Obstructive sleep apnea History of stroke Tobacco abuse PLAN: Obtain Lexiscan stress test today Obtain 2D echocardiogram If testing is unremarkable, patient is cleared for discharge and may follow-up in the office with Dr. Mayi Gonzalez in 3 weeks. Continue current cardiac medications. Nurse practitioner note has been reviewed, I agree with documented findings and plan of care. Patient was seen and examined. Objective - Vital Signs Vital signs: Vital Signs Temp 98.0 F 02/29/24 01:50 Pulse 54 L 02/29/24 01:50 Resp 16 02/29/24 01:50 BP 124/76 02/29/24 01:50 Pulse Ox 98 02/29/24 08:17 FiO2 Intake & Output 02/28/24 02/29/24 02/29/24 18:59 06:59 18:59 Intake Total 118 Output Total 281 1000 Balance -163 -1000 Intake: Oral 118 Output: Urine 281 1000 Other: Voiding Method Urinal # Voids 3 325 # Bowel Movements 1 - Labs CBC & Chem 7: 02/26/24 20:13 02/26/24 20:13 Labs: Abnormal Lab Results - Last 24 Hours (Table) 02/28/24 02/28/24 02/28/24 Range/Units 12:02 17:17 20:32 POC Glucose (mg/dL) 162 H 142 H 249 H (70-110) mg/dL 02/29/24 Range/Units 05:47 POC Glucose (mg/dL) 138 H (70-110) mg/dL
[2024-02-29 12:35] LABS: Glucose,Whole Blood 133 mg/dL (70-110)
--- NOTE | 2024-02-29 12:51 | CA ---
Lexiscan Nuclear Stress Test Report Name: Sean Ramsay Exam Date: 02/29/2024 11:24 Exam Location: [facility] Ht (in): 64 Wt (lb): 178 BSA: 1.86 Ordering Phys: Jes Ruelas Referring Phys: NICOLE Technologist: KOBI Age: 53 Gender: M : 1970 Procedure CPT: Indications: Reflex order-Stress test ICD-10 Codes: Patient History: Chest pain, short of breath, hypertension and family history of heart disease. Medications: Meds past 24 hrs: Pretest Chest Pain: STRESS TEST Lexiscan Protocol Exercise Duration (min:sec): 02:[address] Depressions (mm): Angina Score: Raymundo Score: Resting HR (bpm): 54 Peak HR (bpm): 86 Resting BP (mmHg): 106 / 74 Peak BP (mmHg): 121 / 55 MPHR: 166 Target HR: 141 % MPHR: 52 METS: 1.0 Total Dose: Peak Dose: Atropine: Double Product: [id number] BP Response: Stress Termination: Infusion complete Stress Symptoms: No chest pain or symptoms Stress Summary: ECG ANALYSIS Resting ECG: Stress ECG: CONCLUSIONS Baseline EKG reveals normal sinus rhythm without significant ST- T changes. With Lexiscan administration the heart rate went up from 54 to 80 bpm and the blood pressure changed from 106/74 to 121/55. Patient was asymptomatic and EKG remained unremarkable. By EKG criteria this is unremarkable Lexiscan stress test. The nuclear scan results which are more pertinent will be reported by the radiology Dr. Fidelia Pembetron MD (Electronically Signed) Final Date: 29 February 2024 12:51
--- NOTE | 2024-02-29 12:56 | CA ---
Transthoracic Echo Report Name: Sean Ramsay Age: 53 Gender: M : 1970 Exam Date: 02/29/2024 08:23 Exam Location: [facility] Ht (in): 64 Wt (lb): 178 Ordering Physician: Yas Melendrez Attending/Referring Phys: School Bus Technician Nena Ramirez RDCS Procedure CPT: Indications: Chest Pain Cardiac Hx: Technical Quality: Fair Contrast 1: Total Dose (mL): Contrast 2: Total Dose (mL): MEASUREMENTS (Male / Female) Normal Values 2D ECHO LV Diastolic Diameter PLAX 5.1 cm 4.2 - 5.9 / 3.9 - 5.3 cm LV Systolic Diameter PLAX 4.0 cm IVS Diastolic Thickness 1.1 cm 0.6 - 1.0 / 0.6 - 0.9 cm LVPW Diastolic Thickness 1.0 cm 0.6 - 1.0 / 0.6 - 0.9 cm LV Relative Wall Thickness 0.4 RV Internal Dim ED PLAX 3.5 cm LA Volume 44.0 cm??? 18 - 58 / 22 - 52 cm??? LA Volume Index 22.7 cm???/m??? 16 - 28 cm???/m??? M-MODE Aortic Root Diameter MM 3.6 cm LA Systolic Diameter MM 3.6 cm LA Ao Ratio MM 1.0 AV Cusp Separation MM 1.9 cm DOPPLER LVOT Peak Velocity 98.8 cm/s LVOT Peak Gradient 3.9 mmHg LVOT Velocity Time Integral 20.0 cm MV Area PHT 3.4 cm??? Mitral E Point Velocity 82.2 cm/s Mitral A Point Velocity 77.6 cm/s Mitral E to A Ratio 1.1 MV Deceleration Time 221.4 ms MV E' Velocity 9.1 cm/s Mitral E to MV E' Ratio 9.0 TR Peak Velocity 232.8 cm/s TR Peak Gradient 21.7 mmHg Right Ventricular Systolic Press 26.7 mmHg FINDINGS Left Ventricle Left ventricular cavity size normal. Left ventricular wall thickness normal. No obvious regional wall motion abnormalities. Mildly reduced global left ventricular systolic function. Left ventricular ejection fraction is estimated at 50 %. Right Ventricle Normal right ventricular size and function. Right ventricular systolic pressure within normal limits. Right Atrium Normal right atrial size. Left Atrium Normal left atrial size. Mitral Valve Structurally normal mitral valve. No mitral stenosis, regurgitation or prolapse. Mild mitral annular calcification. Aortic Valve Trileaflet aortic valve. No aortic valve stenosis or regurgitation. Tricuspid Valve Structurally normal tricuspid valve. Mild tricuspid regurgitation. Pulmonic Valve Structurally normal pulmonic valve. Pericardium No pericardial effusion. Echo free space anterior to the right ventricle likely represents a fat pad. Aorta Normal size aortic root and proximal ascending aorta. CONCLUSIONS Normal LV size mildly reduced LV systolic function. Ejection fraction is about 50%. Mild mitral annular calcification. Mild mitral tricuspid insufficiency.. No pericardial effusion probable fat pad Previewed by: Dr. Fidelia Pemberton MD (Electronically Signed) Final Date: 29 February 2024 12:55
--- NOTE | 2024-02-29 15:01 | NM ---
EXAMINATION TYPE: NM stress lexiscan cardiolite DATE OF EXAM: 02/29/2024 COMPARISON: NONE CLINICAL INDICATION: Male, 53 years old with history of chest pain; TECHNIQUE: After the intravenous administration of not provided mCi Tc 99m Sestamibi - Cardiolite re sting SPECT images acquired provided minutes post injection. The patient received 0.4mg Lexiscan, provided mCi Tc 99m Sestamibi - Stress images obtained and provi ded minutes post injection FINDINGS: Review of stress and rest SPECT images demonstrates no distinct perfusion abnormality. Small fixed d efect not excluded. Gated analysis shows normal wall motion with an estimated left ventricular ejecti on fraction of 58 %. IMPRESSION: No scintigraphic evidence for reversible ischemia.
[2024-02-29 17:09] VITALS: BP 107/67; PULSE 66; RESP 18
--- NOTE | 2024-03-01 11:03 | P.DS ---
Providers Date of admission: 02/26/24 21:00 Attending physician: Magdalena Gomez Consults: 02/26/24 20:58 Consult Physician Urgent Consulting Provider: Naresh Carias Consult Reason/Comments: chest pain Do you want consulting provider notified?: Yes Primary care physician: Catherine Narayan MD Hospital Course: Diagnoses: 1. Chest pain stress test came back negative and patient cardiology cleared him for discharge. Chest pain resolved 2. Hypertension; amlodipine 10 mg daily 3. Diabetes mellitus type 2; Lantus 15 units SQ nightly; we will hold while inpatient; Accu-Cheks before every meal and at bedtime with insulin sliding scale; Jardiance 10 mg daily 4.. Hyperlipidemia; Lipitor 10 mg daily 5. Asthma/COPD; not in exacerbation; continue with home inhaler therapy; Singulair 10 mg daily 6. Depression/bipolar disorder; continue home regimen 7. Nicotine dependence, patient counseled extensively to quit smoking. Patient asking to get nicotine gum. Patient states that he smokes within 30 minutes once he wake up from sleep I spoke with the pharmacist and per recommendation we will prescribe 4 milligram gum for his alcohol withdrawal Hospital course: 53-year-old male with significant past medical history of hypertension, diabetes type 2, obstructive sleep apnea, history of stroke, depression, tobacco use who presents with complaints of chest pain. Patient was evaluated by vulcanizer operator. He had Lexiscan stress test which came back negative. Chest pain resolved. Patient denies dyspnea. Patient saturating 96 to 98% on room air. No tachypnea. No other respiratory symptoms. No other GI or urinary symptoms. Patient walking in the room and hallway with no difficulty. He uses a cane. Patient eager to go home today. Patient was counseled extensively to quit smoking and he agrees but he request nicotine gum which is provided for him Also patient would benefit from outpatient follow-up with pulmonary service regarding his smoking history and COPD and he agrees. Patient denies any other symptoms Patient was cleared for discharge by vulcanizer operator Problems and management plan were discussed with the patient and he verbalized understanding and acceptance Patient was found stable and can be discharged home in guarded prognosis however he needs follow-up as an outpatient. Patient was instructed to follow up with PCP within one week and patient agrees Patient was instructed to follow-up with his vulcanizer operator Dr. Goel in 3 weeks and he agrees Patient was instructed to follow-up with his mortgage loan officer originator Dr. Negro in 1 week after discharge and he agrees Physical exam Gen: patient is a AAOx3, no distress CVS: S1-S2, RRR, no murmur Lungs: B/L CTA, no wheezing Abdomen: soft, no distention, no tenderness, positive bowel sounds Extremity: no leg edema or induration Time spent more than 35 minutes Patient Condition at Discharge: Fair Plan - Discharge Summary Discharge Rx Participant: No New Discharge Prescriptions: New Nicotine Polacrilex [Nicotine Gum] 2 mg BUCCAL DIRECTED #160 pieceofgum Continue Nitroglycerin Sl Tabs [Nitrostat] 0.4 mg SL Q5M PRN PRN Reason: Chest Pain Insulin Glargine,Hum.rec.anlog [Lantus Solostar Pen] 15 units SQ HS Ipratropium-Albuterol Nebulize [Duoneb 0.5 mg-3 mg/3 ml Soln] 3 ml INHALATION RT-QID PRN 30 Days #1 each PRN Reason: Shortness Of Breath Or Wheezing Sertraline [Zoloft] 100 mg PO HS 30 Days #30 tab ARIPiprazole [Abilify] 15 mg PO DAILY 30 Days #30 tab Atorvastatin [Lipitor] 10 mg PO HS 30 Days #30 tab Cholecalciferol (Vitamin D3) [Vitamin D3 (50 Mcg = 2000 Iu)] 50 mcg PO DAILY 30 Days #30 tab Ondansetron Odt [Zofran ODT] 4 mg PO Q8HR PRN #10 tab PRN Reason: Nausea Albuterol Inhaler [Ventolin Hfa Inhaler] 1 - 2 puff INHALATION RT-Q6H PRN PRN Reason: Shortness Of Breath amLODIPine [Norvasc] 10 mg PO DAILY Benzonatate [Tessalon Perles] 100 mg PO TID PRN PRN Reason: Cough Budesonide-Formot 160-4.5 Mcg [Symbicort 160-4.5 Mcg Inhaler] 2 puff INHALATION RT-BID 30 Days #1 each hydrOXYzine pamoate [Vistaril] 25 mg PO DAILY PRN 30 Days #30 cap PRN Reason: Anxiety Aspirin EC [Ecotrin Low Dose] 81 mg PO DAILY 30 Days #30 tab Famotidine [Pepcid] 20 mg PO BID PRN 30 Days #60 tab PRN Reason: Heartburn Montelukast [Singulair] 10 mg PO HS 30 Days #30 tab traZODone HCL [Desyrel] 100 mg PO HS tab hydrOXYzine pamoate [Vistaril] 50 mg PO HS PRN PRN Reason: Anxiety/SLEEP Tamsulosin [Flomax] 0.4 mg PO BID Albuterol Nebulized [Ventolin Nebulized] 2.5 mg INHALATION RT-QID PRN PRN Reason: Shortness Of Breath Omeprazole 40 mg PO DAILY Lidocaine 5% Patch [Lidoderm 5% Patch] 1 patch TRANSDERM DAILY Empagliflozin [Jardiance] 25 mg PO DAILY Hyoscyamine Sulfate [Levsin-Sl] 0.125 mg SL QID PRN PRN Reason: abdominal pain/diarrhea Discharge Medication List Nitroglycerin Sl Tabs [Nitrostat] 0.4 mg SL Q5M PRN 08/20/23 [History] Insulin Glargine,Hum.rec.anlog [Lantus Solostar Pen] 15 units SQ HS 12/06/23 [History] ARIPiprazole [Abilify] 15 mg PO DAILY 30 Days #30 tab 12/13/23 [Rx] Aspirin EC [Ecotrin Low Dose] 81 mg PO DAILY 30 Days #30 tab 12/13/23 [Rx] Atorvastatin [Lipitor] 10 mg PO HS 30 Days #30 tab 12/13/23 [Rx] Budesonide-Formot 160-4.5 Mcg [Symbicort 160-4.5 Mcg Inhaler] 2 puff INHALATION RT-BID 30 Days #1 each 12/13/23 [Rx] Cholecalciferol (Vitamin D3) [Vitamin D3 (50 Mcg = 2000 Iu)] 50 mcg PO DAILY 30 Days #30 tab 12/13/23 [Rx] Famotidine [Pepcid] 20 mg PO BID PRN 30 Days #60 tab 12/13/23 [Rx] Ipratropium-Albuterol Nebulize [Duoneb 0.5 mg-3 mg/3 ml Soln] 3 ml INHALATION RT-QID PRN 30 Days #1 each 12/13/23 [Rx] Montelukast [Singulair] 10 mg PO HS 30 Days #30 tab 12/13/23 [Rx] Sertraline [Zoloft] 100 mg PO HS 30 Days #30 tab 12/13/23 [Rx] hydrOXYzine pamoate [Vistaril] 25 mg PO DAILY PRN 30 Days #30 cap 12/13/23 [Rx] Ondansetron Odt [Zofran ODT] 4 mg PO Q8HR PRN #10 tab 01/04/24 [Rx] traZODone HCL [Desyrel] 100 mg PO HS tab 02/22/24 [Rx] Albuterol Inhaler [Ventolin Hfa Inhaler] 1 - 2 puff INHALATION RT-Q6H PRN 02/25/24 [History] Albuterol Nebulized [Ventolin Nebulized] 2.5 mg INHALATION RT-QID PRN 02/25/24 [History] Empagliflozin [Jardiance] 25 mg PO DAILY 02/25/24 [History] Lidocaine 5% Patch [Lidoderm 5% Patch] 1 patch TRANSDERM DAILY 02/25/24 [History] Omeprazole 40 mg PO DAILY 02/25/24 [History] Tamsulosin [Flomax] 0.4 mg PO BID 02/25/24 [History] amLODIPine [Norvasc] 10 mg PO DAILY 02/25/24 [History] hydrOXYzine pamoate [Vistaril] 50 mg PO HS PRN 02/25/24 [History] Benzonatate [Tessalon Perles] 100 mg PO TID PRN 02/27/24 [History] Hyoscyamine Sulfate [Levsin-Sl] 0.125 mg SL QID PRN 02/27/24 [History] Nicotine Polacrilex [Nicotine Gum] 2 mg BUCCAL DIRECTED #160 pieceofgum 02/29/24 [Rx] Follow up Appointment(s)/Referral(s): Timo Asif MD [STAFF PHYSICIAN] - 03/15/24 9:00 am (Follow up with lung doctor for pulmonary function tests.) Catherine Narayan MD [Primary Care Provider] - 1-2 days Mika Gonzalez MD [STAFF PHYSICIAN] - 03/07/24 9:15 am Activity/Diet/Wound Care/Special Instructions: Heart healthy diet Activity is restricted till you see your doctor Discharge Disposition: HOME SELF-CARE
== END 2024-02-29 16:20 | disposition home or self-care (01) ==
LOC: EC 18:15 → 6NMEDSUR 21:00
PROVIDERS: ADMIT Hospitalist; ATTEND Hospitalist
DX: R07.89 Other chest pain (principal); R10.9 Unspecified abdominal pain; I10 Essential (primary) hypertension; J44.89 Other specified chronic obstructive pulmonary disease; G47.33 Obstructive sleep apnea (adult) (pediatric); E11.9 Type 2 diabetes mellitus without complications; E78.5 Hyperlipidemia, unspecified; I07.1 Rheumatic tricuspid insufficiency; I45.10 Unspecified right bundle-branch block; R00.1 Bradycardia, unspecified; R11.0 Nausea; R61 Generalized hyperhidrosis; F31.9 Bipolar disorder, unspecified; E66.9 Obesity, unspecified; Z68.30 Body mass index [BMI] 30.0-30.9, adult; F17.200 Nicotine dependence, unspecified, uncomplicated; Z79.84 Long term (current) use of oral hypoglycemic drugs; Z79.4 Long term (current) use of insulin; Z79.51 Long term (current) use of inhaled steroids; Z79.82 Long term (current) use of aspirin; Z79.899 Other long term (current) drug therapy; Z88.1 Allergy status to other antibiotic agents; Z91.040 Latex allergy status; Z88.0 Allergy status to penicillin; Z88.2 Allergy status to sulfonamides; Z88.8 Allergy status to other drugs, medicaments and biological substances; Z91.048 Other nonmedicinal substance allergy status; Z86.73 Personal history of transient ischemic attack (TIA), and cerebral infarction without residual deficits; Z71.6 Tobacco abuse counseling
CPT/HCPCS: 36415; 71045; 78452; 80053; 80061; 83036; 83690; 84484; 85025; 93005; 93017; 93306; 94640; 94760; 96372; 96374; 99284

== ENCOUNTER 2024-03-04 17:22 | Emergency (ER) | payer MEDICARE ==
--- NOTE | 2024-03-04 17:43 | ED ---
General Adult HPI - General Chief complaint: Chest Pain Stated complaint: chest pain Time Seen by Provider: 03/04/24 17:23 Source: patient, EMS, RN notes reviewed, old records reviewed Mode of arrival: EMS - History of Present Illness Initial comments: 53-year-old male presenting for evaluation of chest pain. Patient had recent hospital admission for evaluation of chest pain and had a stress test which was negative. Patient had a negative cardiac enzymes at that time. He has had recurrent chest pain since discharge. Patient was given aspirin nitroglycerin by paramedics without change in chest pain. No associated vomiting or diaphoresis. Patient had heart catheterization in 2018 which showed no significant coronary artery disease. - Related Data Home Medications Medication Instructions Recorded Confirmed Nitroglycerin Sl Tabs [Nitrostat] 0.4 mg SL Q5M PRN 08/20/23 03/04/24 Insulin Glargine,Hum.rec.anlog 15 units SQ HS 12/06/23 03/04/24 [Lantus Solostar Pen] Albuterol Inhaler [Ventolin Hfa 1 - 2 puff INHALATION RT-Q6H PRN 02/25/24 03/04/24 Inhaler] Albuterol Nebulized [Ventolin 2.5 mg INHALATION RT-QID PRN 02/25/24 03/04/24 Nebulized] Empagliflozin [Jardiance] 25 mg PO DAILY 02/25/24 03/04/24 Lidocaine 5% Patch [Lidoderm 5% 1 patch TRANSDERM DAILY 02/25/24 03/04/24 Patch] Omeprazole 40 mg PO DAILY 02/25/24 03/04/24 Tamsulosin [Flomax] 0.4 mg PO BID 02/25/24 03/04/24 amLODIPine [Norvasc] 10 mg PO DAILY 02/25/24 03/04/24 hydrOXYzine pamoate [Vistaril] 50 mg PO HS PRN 02/25/24 03/04/24 Benzonatate [Tessalon Perles] 100 mg PO TID PRN 02/27/24 03/04/24 Hyoscyamine Sulfate [Levsin-Sl] 0.125 mg SL QID PRN 02/27/24 03/04/24 hydrOXYzine pamoate [Vistaril] 25 mg PO BID 09/07/24 09/07/24 Previous Rx's Medication Instructions Recorded ARIPiprazole [Abilify] 15 mg PO DAILY 30 Days #30 tab 12/13/23 Aspirin EC [Ecotrin Low Dose] 81 mg PO DAILY 30 Days #30 tab 12/13/23 Atorvastatin [Lipitor] 10 mg PO HS 30 Days #30 tab 12/13/23 Budesonide-Formot 160-4.5 Mcg 2 puff INHALATION RT-BID 30 Days 12/13/23 [Symbicort 160-4.5 Mcg Inhaler] #1 each Cholecalciferol (Vitamin D3) 50 mcg PO DAILY 30 Days #30 tab 12/13/23 [Vitamin D3 (50 Mcg = 2000 Iu)] Famotidine [Pepcid] 20 mg PO BID PRN 30 Days #60 tab 12/13/23 Ipratropium-Albuterol Nebulize 3 ml INHALATION RT-QID PRN 30 Days 12/13/23 [Duoneb 0.5 mg-3 mg/3 ml Soln] #1 each Montelukast [Singulair] 10 mg PO HS 30 Days #30 tab 12/13/23 Sertraline [Zoloft] 100 mg PO HS 30 Days #30 tab 12/13/23 Ondansetron Odt [Zofran ODT] 4 mg PO Q8HR PRN #10 tab 01/04/24 traZODone HCL [Desyrel] 100 mg PO HS tab 02/22/24 Allergies Allergy/AdvReac Type Severity Reaction Status Date / Time dicyclomine HCl [From Bentyl] Allergy Unknown Dyspnea Verified 03/04/24 18:15 latex Allergy Unknown Rash/Hives Verified 03/04/24 18:15 Benzoate Analogues Allergy Unknown Verified 03/04/24 18:15 nitrofurantoin Allergy Nausea Verified 03/04/24 18:15 [From Macrobid] Penicillins Allergy "[place] Verified 03/04/24 18:15 funny" adhesive AdvReac Unknown Itching Verified 03/04/24 18:15 ciprofloxacin AdvReac Unknown Nausea Verified 03/04/24 18:15 Macrolide Antibiotics AdvReac Unknown Nausea Verified 03/04/24 18:15 sulfamethoxazole AdvReac Unknown Unknown Verified 03/04/24 18:15 [From Bactrim] trimethoprim [From Bactrim] AdvReac Unknown Unknown Verified 03/04/24 18:15 diphenhydramine AdvReac Confusion Verified 03/04/24 18:15 [From Benadryl] Review of Systems ROS Statement: Those systems with pertinent positive or pertinent negative responses have been documented in the HPI. ROS Other: All systems not noted in ROS Statement are negative. Past Medical History Past Medical History: Asthma, Chest Pain / Angina, COPD, CVA/TIA, Diabetes Mellitus, GERD/Reflux, Hearing Disorder / Deafness, Hyperlipidemia, Hypert ension, Liver Disease, Osteoarthritis (OA), Pneumonia, Seizure Disorder, Sleep Apnea/CPAP/BIPAP Additional Past Medical History / Comment(s): states CVA at 35 yrs old, no weak ness @ this time. states seizure at 35 yrs old., DDD- back & neck pain., carpal tunnel syndrome. Has [employer] public guardian. History of Any Multi-Drug Resistant Organisms: None Reported Past Surgical History: Heart Catheterization, Orthopedic Surgery Additional Past Surgical History / Comment(s): Cysts removed, left thumb karen anitha, colonoscopy 08/24/2019. Skin tags removed from both eyes. Past Anesthesia/Blood Transfusion Reactions: Unable to Obtain, Motion Sickness, Postoperative Nausea & Vomiting (PONV) Past Psychological History: Anxiety, Bipolar, Depression, Schizophrenia Smoking Status: Current every day smoker Past Alcohol Use History: None Reported Past Drug Use History: None Reported - Past Family History Brother(s) Family Medical History: Diabetes Mellitus Additional Family Medical History / Comment(s): Patient has 2 brothers. One from complications from diabetes. The second is alive with diabetes. Sister(s) Family Medical History: Cancer Additional Family Medical History / Comment(s): Patient has one sister with breast cancer. Patient does not have any children. Father Family Medical History: Cancer Additional Family Medical History / Comment(s): Father in his 40s or 50s from colon cancer. Mother Family Medical History: Cancer Additional Family Medical History / Comment(s): Mother at age 68 from lung cancer. General Exam General appearance: alert, in no apparent distress Head exam: Present: atraumatic, normocephalic Eye exam: Present: normal appearance, PERRL ENT exam: Present: normal exam Neck exam: Present: normal inspection Respiratory exam: Present: normal lung sounds bilaterally. Absent: respiratory distress, wheezes Cardiovascular Exam: Present: regular rate, normal rhythm GI/Abdominal exam: Present: soft. Absent: distended, tenderness, guarding Extremities exam: Present: normal inspection, normal capillary refill. Absent: pedal edema, calf tenderness Neurological exam: Present: alert, oriented X3 Psychiatric exam: Present: normal affect, normal mood Skin exam: Present: warm, dry, intact. Absent: cyanosis, diaphoretic Course Vital Signs 03/04/24 17:23 Temperature 98.3 F Pulse Rate 96 Respiratory 16 Rate Blood Pressure 114/69 O2 Sat by Pulse 97 Oximetry Medical Decision Making - Medical Decision Making Was pt. sent in by a medical professional or institution (, SEAN, PATHOLOGY TECHNICIAN, urgent care, hospital, or longterm...) When possible be specific @ -No Did you speak to anyone other than the patient for history (EMS, parent, family, police, friend...)? What history was obtained from this source @ -No Did you review nursing and triage notes (agree or disagree)? Why? @ -I reviewed and agree with nursing and triage notes Were old charts reviewed (outside hosp., previous admission, EMS record, old EKG, old radiological studies, urgent care reports/EKG's, longterm records)? Report findings @ -No old charts were reviewed Differential Chest Pain: Stable Angina, Unstable Angina, STEMI, NSTEMI Aortic Dissection, Pneumothorax, Musculoskeletal, Esophageal Spasm GERD, Cholecystitis, Pancreatitis, Zoster, this is not meant to be an all-inclusive list. EKG interpreted by me (3pts min.). @Sinus rhythm, incomplete right bundle branch block, rate of 67, MT interval 149, QRS duration 108, QTc [address] segment elevation. X-rays interpreted by me (1pt min.). @ -None done CT interpreted by me (1pt min.). @ -None done U/S interpreted by me (1pt. min.). @ -None done What testing was considered but not performed or refused? (CT, X-rays, U/S, labs)? Why? @ -None What meds were considered but not given or refused? Why? @ -None Did you discuss the management of the patient with other professionals (professionals i.e. SEAN Cordova, PATHOLOGY TECHNICIAN, lab, RT, psych nurse, social service technician, head of mathematics, teacher, forest fire management officer, caseworker)? Give summary @ -No Was smoking cessation discussed for >3mins.? @ -No Was critical care preformed (if so, how long)? @ -No Were there social determinants of health that impacted care today? How? (Homelessness, low income, unemployed, alcoholism, drug addiction, transportation, low edu. Level, literacy, decrease access to med. care, snf, rehab)? @ -No Was there de-escalation of care discussed even if they declined (Discuss DNR or withdrawal of care, Hospice)? DNR status @ -No What co-morbidities impacted this encounter? (DM, HTN, Smoking, COPD, CAD, Cancer, CVA, ARF, Chemo, Hep., AIDS, mental health diagnosis, sleep apnea, morbid obesity)? @ -None Was patient admitted / discharged? Hospital course, mention meds given and route, prescriptions, significant lab abnormalities, going to OR and other per tinent info. @ -53-year-old male with persistent chest pain, stress test performed 3 days prior which was negative. EKG is unchanged. Patient has normal laboratory testing including normal CBC, CMP, negative troponin. Patient's pain is atypical. I do feel this patient is stable for continued outpatient evaluation. I do not feel any further testing is required at this time. Undiagnosed new problem with uncertain prognosis? @ -No Drug Therapy requiring intensive monitoring for toxicity (Heparin, Nitro, Insulin, Cardizem)? @ -No Were any procedures done? @ -No Diagnosis/symptom? @Persistent atypical chest pain Acute, or Chronic, or Acute on Chronic? @ -Acute on chronic Uncomplicated (without systemic symptoms) or Complicated (systemic symptoms)? @ -Default Side effects of treatment? @ -No Exacerbation, Progression, or Severe Exacerbation? @ -No Poses a threat to life or bodily function? How? (Chest pain, [place], [place], pneumonia, PE, COPD, DKA, ARF, appy, cholecystitis, CVA, Diverticulitis, Homicidal, Suicidal, threat to staff... and all critical care pts) @ -Low risk at this time - Lab Data Result diagrams: 03/04/24 17:51 03/04/24 17:51 Lab Results 03/04/24 03/04/24 03/04/24 Range/Units 17:51 17:51 17:51 WBC 5.4 (3.8-10.6) k/uL RBC 4.38 (4.30-5.90) m/uL Hgb 13.7 (13.0-17.5) gm/dL Hct 38.6 L (39.0-53.0) % MCV 88.1 (80.0-100.0) fL MCH 31.3 (25.0-35.0) pg MCHC 35.5 (31.0-37.0) g/dL RDW 13.2 (11.5-15.5) % Plt Count 198 (150-450) k/uL MPV 7.3 Neutrophils % 64 % Lymphocytes % 24 % Monocytes % 5 % Eosinophils % 5 % Basophils % 0 % Neutrophils # 3.4 (1.3-7.7) k/uL Lymphocytes # 1.3 (1.0-4.8) k/uL Monocytes # 0.3 (0-1.0) k/uL Eosinophils # 0.3 (0-0.7) k/uL Basophils # 0.0 (0-0.2) k/uL PT 10.0 (10.0-12.5) sec INR 0.9 (<1.2) APTT 22.3 (22.0-30.0) sec Sodium 139 (137-145) mmol/L Potassium 3.5 (3.5-5.1) mmol/L Chloride 106 (98-107) mmol/L Carbon Dioxide 21 L (22-30) mmol/L Anion Gap 12 mmol/L BUN 12 (9-20) mg/dL Creatinine 0.67 (0.66-1.25) mg/dL Est GFR (CKD-EPI)AfAm >90 (>60 ml/min/1.73 sqM) Est GFR (CKD-EPI)NonAf >90 (>60 ml/min/1.73 sqM) Glucose 168 H (74-99) mg/dL Calcium 8.5 (8.4-10.2) mg/dL Magnesium 1.8 (1.6-2.3) mg/dL Total Bilirubin 0.4 (0.2-1.3) mg/dL AST 28 (17-59) U/L ALT 32 (4-49) U/L Alkaline Phosphatase 78 (38-126) U/L Troponin I (0.000-0.034) ng/mL Total Protein 5.8 L (6.3-8.2) g/dL Albumin 3.9 (3.5-5.0) g/dL 03/04/24 Range/Units 17:51 WBC (3.8-10.6) k/uL RBC (4.30-5.90) m/uL Hgb (13.0-17.5) gm/dL Hct (39.0-53.0) % MCV (80.0-100.0) fL MCH (25.0-35.0) pg MCHC (31.0-37.0) g/dL RDW (11.5-15.5) % Plt Count (150-450) k/uL MPV Neutrophils % % Lymphocytes % % Monocytes % % Eosinophils % % Basophils % % Neutrophils # (1.3-7.7) k/uL Lymphocytes # (1.0-4.8) k/uL Monocytes # (0-1.0) k/uL Eosinophils # (0-0.7) k/uL Basophils # (0-0.2) k/uL PT (10.0-12.5) sec INR (<1.2) APTT (22.0-30.0) sec Sodium (137-145) mmol/L Potassium (3.5-5.1) mmol/L Chloride (98-107) mmol/L Carbon Dioxide (22-30) mmol/L Anion Gap mmol/L BUN (9-20) mg/dL Creatinine (0.66-1.25) mg/dL Est GFR (CKD-EPI)AfAm (>60 ml/min/1.73 sqM) Est GFR (CKD-EPI)NonAf (>60 ml/min/1.73 sqM) Glucose (74-99) mg/dL Calcium (8.4-10.2) mg/dL Magnesium (1.6-2.3) mg/dL Total Bilirubin (0.2-1.3) mg/dL AST (17-59) U/L ALT (4-49) U/L Alkaline Phosphatase (38-126) U/L Troponin I <0.012 (0.000-0.034) ng/mL Total Protein (6.3-8.2) g/dL Albumin (3.5-5.0) g/dL Disposition Clinical Impression: Chest pain Disposition: HOME SELF-CARE Condition: Fair Instructions (If sedation given, give patient instructions): Chest Pain (ED) Is patient prescribed a controlled substance at d/c from ED?: No Referrals: None,Stated [Primary Care Provider] - 1-2 days Time of Disposition: 18:40
[2024-03-04 18:09] LABS: Basophils % (A) 0 %; Eosinophils # (A) 0.3 k/uL (0-0.7); Eosinophils % (A) 5 %; HCT 38.6 % (39.0-53.0); HGB 13.7 gm/dL (13.0-17.5); Lymphocytes # (A) 1.3 k/uL (1.0-4.8); Lymphocytes % (A) 24 %; MCH 31.3 pg (25.0-35.0); MCHC 35.5 g/dL (31.0-37.0); MCV 88.1 fL (80.0-100.0); Mean Platelet Volume 7.3; Monocytes # (A) 0.3 k/uL (0-1.0); Monocytes % (A) 5 %; Neutrophils # (A) 3.4 k/uL (1.3-7.7); Neutrophils % (A) 64 %; Platelet Count 198 k/uL (150-450); RBC 4.38 m/uL (4.30-5.90); RDW 13.2 % (11.5-15.5); WBC 5.4 k/uL (3.8-10.6)
[2024-03-04 18:17] LABS: ALT 32 U/L (4-49); AST 28 U/L (17-59); African American GFR (CKD) >90 (>60 ml/min/1.73 sqM); Albumin 3.9 g/dL (3.5-5.0); Alkaline Phosphatase 78 U/L (38-126); Anion Gap 12 mmol/L; Blood Urea Nitrogen 12 mg/dL (9-20); Calcium 8.5 mg/dL (8.4-10.2); Carbon Dioxide 21 mmol/L (22-30); Chloride 106 mmol/L (98-107); Glucose 168 mg/dL (74-99); Magnesium 1.8 mg/dL (1.6-2.3); Non-African American GFR(CKD) >90 (>60 ml/min/1.73 sqM); Potassium 3.5 mmol/L (3.5-5.1); Sodium 139 mmol/L (137-145); Total Bilirubin 0.4 mg/dL (0.2-1.3); Total Protein 5.8 g/dL (6.3-8.2)
[2024-03-04 18:26] LABS: INR 0.9 (<1.2); Partial Thromboplastin Time 22.3 sec (22.0-30.0)
[2024-03-04] MEDS: ACETAMINOPHEN TAB 325 MG TAB PO STA (19:32)
[2024-03-04 19:36] VITALS: BP 122/77; PULSE 61; RESP 18; TEMP 98.1
== END 2024-03-04 19:36 | disposition home or self-care (01) ==
LOC: EC 17:22
CPT/HCPCS: 36415; 80053; 83735; 84484; 85025; 85610; 85730; 93005; 99285

== ENCOUNTER 2024-03-07 09:44 | Emergency (ER) | payer MEDICARE ==
--- NOTE | 2024-03-07 10:42 | XR ---
EXAMINATION TYPE: XR chest 2V DATE OF EXAM: 03/07/2024 COMPARISON: 02/26/2024 HISTORY: Shortness of breath TECHNIQUE: Frontal and lateral views of the chest are obtained. FINDINGS: Scattered senescent parenchymal changes noted. Hyperinflation compatible with COPD. No evidence for infiltrate. No evidence for atelectasis. Heart size is stable. Mediastinal structures are stable and grossly unremarkable. No evidence for hilar prominence. Degenerative changes dorsal spine. IMPRESSION: 1. No evidence for acute pulmonary disease.
--- NOTE | 2024-03-07 10:47 | ED ---
Chest Pain HPI - General Chief Complaint: Chest Pain Stated Complaint: chest pain/body aches Time Seen by Provider: 03/07/24 10:45 Source: patient, RN notes reviewed Mode of arrival: ambulatory Limitations: no limitations - History of Present Illness Initial Comments: This is a 53-year-old male who presents to the emergency department for chest pain. States that it has been going on over the last month and radiates up into his neck. States that he also feels nauseous. Denies any shortness of breath. Follows with Dr. Gonzalez, cardiology. He had a stress test on 02/28 that was negative. He was evaluated here 3 days ago for chest pain as well. MD Complaint: chest pain - Related Data Home Medications Medication Instructions Recorded Confirmed Nitroglycerin Sl Tabs [Nitrostat] 0.4 mg SL Q5M PRN 08/20/23 03/04/24 Insulin Glargine,Hum.rec.anlog 15 units SQ HS 12/06/23 03/04/24 [Lantus Solostar Pen] Albuterol Inhaler [Ventolin Hfa 1 - 2 puff INHALATION RT-Q6H PRN 02/25/24 03/04/24 Inhaler] Albuterol Nebulized [Ventolin 2.5 mg INHALATION RT-QID PRN 02/25/24 03/04/24 Nebulized] Empagliflozin [Jardiance] 25 mg PO DAILY 02/25/24 03/04/24 Lidocaine 5% Patch [Lidoderm 5% 1 patch TRANSDERM DAILY 02/25/24 03/04/24 Patch] Omeprazole 40 mg PO DAILY 02/25/24 03/04/24 Tamsulosin [Flomax] 0.4 mg PO BID 02/25/24 03/04/24 amLODIPine [Norvasc] 10 mg PO DAILY 02/25/24 03/04/24 hydrOXYzine pamoate [Vistaril] 50 mg PO HS PRN 02/25/24 03/04/24 Benzonatate [Tessalon Perles] 100 mg PO TID PRN 02/27/24 03/04/24 Hyoscyamine Sulfate [Levsin-Sl] 0.125 mg SL QID PRN 02/27/24 03/04/24 hydrOXYzine pamoate [Vistaril] 25 mg PO BID 03/04/24 03/04/24 Previous Rx's Medication Instructions Recorded ARIPiprazole [Abilify] 15 mg PO DAILY 30 Days #30 tab 12/13/23 Aspirin EC [Ecotrin Low Dose] 81 mg PO DAILY 30 Days #30 tab 12/13/23 Atorvastatin [Lipitor] 10 mg PO HS 30 Days #30 tab 12/13/23 Budesonide-Formot 160-4.5 Mcg 2 puff INHALATION RT-BID 30 Days 12/13/23 [Symbicort 160-4.5 Mcg Inhaler] #1 each Cholecalciferol (Vitamin D3) 50 mcg PO DAILY 30 Days #30 tab 12/13/23 [Vitamin D3 (50 Mcg = 2000 Iu)] Famotidine [Pepcid] 20 mg PO BID PRN 30 Days #60 tab 12/13/23 Ipratropium-Albuterol Nebulize 3 ml INHALATION RT-QID PRN 30 Days 12/13/23 [Duoneb 0.5 mg-3 mg/3 ml Soln] #1 each Montelukast [Singulair] 10 mg PO HS 30 Days #30 tab 12/13/23 Sertraline [Zoloft] 100 mg PO HS 30 Days #30 tab 12/13/23 Ondansetron Odt [Zofran ODT] 4 mg PO Q8HR PRN #10 tab 01/04/24 traZODone HCL [Desyrel] 100 mg PO HS tab 02/22/24 Allergies Allergy/AdvReac Type Severity Reaction Status Date / Time dicyclomine HCl [From Bentyl] Allergy Unknown Dyspnea Verified 03/07/24 09:59 latex Allergy Unknown Rash/Hives Verified 03/07/24 09:59 Benzoate Analogues Allergy Unknown Verified 03/07/24 09:59 nitrofurantoin Allergy Nausea Verified 03/07/24 09:59 [From Macrobid] Penicillins Allergy "[place] Verified 03/07/24 09:59 funny" adhesive AdvReac Unknown Itching Verified 03/07/24 09:59 ciprofloxacin AdvReac Unknown Nausea Verified 03/07/24 09:59 Macrolide Antibiotics AdvReac Unknown Nausea Verified 03/07/24 09:59 sulfamethoxazole AdvReac Unknown Unknown Verified 03/07/24 09:59 [From Bactrim] trimethoprim [From Bactrim] AdvReac Unknown Unknown Verified 03/07/24 09:59 diphenhydramine AdvReac Confusion Verified 03/07/24 09:59 [From Benadryl] Review of Systems ROS Statement: Those systems with pertinent positive or pertinent negative responses have been documented in the HPI. ROS Other: All systems not noted in ROS Statement are negative. Past Medical History Past Medical History: Asthma, Chest Pain / Angina, COPD, CVA/TIA, Diabetes Mellitus, GERD/Reflux, Hearing Disorder / Deafness, Hyperlipidemia, Hypertension, Liver Disease, Osteoarthritis (OA), Pneumonia, Seizure Disorder, Sleep Apnea/CPAP/BIPAP Additional Past Medical History / Comment(s): states CVA at 35 yrs old, no weakness @ this time. states seizure at 35 yrs old., DDD- back & neck pain., carpal tunnel syndrome. Has [employer] public guardian. History of Any Multi-Drug Resistant Organisms: None Reported Past Surgical History: Heart Catheterization, Orthopedic Surgery Additional Past Surgical History / Comment(s): Cysts removed, left thumb surgery, colonoscopy 08/24/2019. Skin tags removed from both eyes. Past Anesthesia/Blood Transfusion Reactions: Unable to Obtain, Motion Sickness, Postoperative Nausea & Vomiting (PONV) Past Psychological History: Anxiety, Bipolar, Depression, Schizophrenia Smoking Status: Current every day smoker Past Alcohol Use History: None Reported Past Drug Use History: None Reported - Past Family History Brother(s) Family Medical History: Diabetes Mellitus Additional Family Medical History / Comment(s): Patient has 2 brothers. One from complications from diabetes. The second is alive with diabetes. Sister(s) Family Medical History: Cancer Additional Family Medical History / Comment(s): Patient has one sister with breast cancer. Patient does not have any children. Father Family Medical History: Cancer Additional Family Medical History / Comment(s): Father in his 40s or 50s from colon cancer. Mother Family Medical History: Cancer Additional Family Medical History / Comment(s): Mother at age 68 from lung cancer. General Exam Limitations: no limitations General appearance: alert, in no apparent distress Head exam: Present: atraumatic, normocephalic, normal inspection Respiratory exam: Present: normal lung sounds bilaterally. Absent: respiratory distress, wheezes, rales, rhonchi, stridor Cardiovascular Exam: Present: regular rate, normal rhythm, normal heart sounds. Absent: systolic murmur, diastolic murmur, rubs, gallop, clicks GI/Abdominal exam: Present: soft, normal bowel sounds. Absent: distended, tenderness, guarding, rebound, rigid Neurological exam: Present: alert, oriented X3, CN II-XII intact Psychiatric exam: Present: normal affect, normal mood Skin exam: Present: warm, dry, intact, normal color. Absent: rash Course Vital Signs 03/07/24 03/07/24 03/07/24 09:57 11:48 11:52 Temperature 98 F 98.5 F Pulse Rate 67 50 L Pulse Rate [ 47 L Forestry Faculty Member ] Respiratory 20 16 Rate Blood Pressure 112/72 114/81 O2 Sat by Pulse 98 99 Oximetry 03/07/24 03/07/24 12:11 12:41 Temperature 98.4 F Pulse Rate 45 L 46 L Pulse Rate [ Forestry Faculty Member ] Respiratory 14 16 Rate Blood Pressure 110/77 111/82 O2 Sat by Pulse 100 100 Oximetry Chest Pain MDM - MDM This is a 53 year old male who presents to the emergency department for chest pain. Was pt. sent in by a medical professional or institution? @ -No Did you speak to anyone other than the patient for history? @ -No Did you review nursing and triage notes? @ -Yes, and I agree, it is accurate with regards to the patient's symptoms. Were old charts reviewed? @ -Stress test from 02/29/2024 demonstrating no evidence for reversible ischemia. Differential Diagnosis? @ -Differential Chest Pain: Stable Angina, Unstable Angina, STEMI, NSTEMI Aortic Dissection, Pneumothorax, Musculoskeletal, Esophageal Spasm GERD, Cholecystitis, Pancreatitis, Zoster, this is not meant to be an all-inclusive list. EKG interpreted by me (3pts min.)? @ -EKG interpreted by me demonstrating the following: Sinus rhythm. Ventricular rate 61 bpm, ID interval 138 ms, QRS duration 107 ms, QTc 416 ms. X-rays interpreted by me (1pt min.)? @ -Chest x-ray obtained, my interpretation identifies no localized consolidations or infiltrates. CT interpreted by me (1pt min.)? @ -Not obtained U/S interpreted by me (1pt. min.)? @ -Not obtained What testing was considered but not performed? (CT, X-rays, U/S, labs)? Why? @ -None What meds were considered but not given? Why? @ -None Did you discuss the management of the patient with other professionals? @ -No Did you reconcile home meds? @ -No Was smoking cessation discussed for >3mins.? @ -I discussed smoking cessation for greater than 3 minutes. The risk of smoking were discussed with the patient including but not limited to risks of cancer, stroke, coronary artery disease and COPD. Also discussed with patient were multiple methods of quitting smoking. Lastly we discussed the financial cost of smoking. Was critical care preformed (if so, how long)? @ -No Were there social determinants of health that impacted care today? How? (Homelessness, low income, unemployed, alcoholism, drug addiction, transporta tion, low edu. Level, literacy, decrease access to med. care, detention, rehab)? @ -No Was there de-escalation of care discussed even if they declined? (Discuss DNR or withdrawal of care, Hospice)? @ -No What co-morbidities impacted this encounter? (DM, HTN, Smoking, COPD, CAD, Cancer, CVA, Hep., AIDS, mental health diagnosis, sleep apnea, morbid obesity)? @ -Smoking, HLD, HTN Was patient admitted / discharged? @ -Discharged. Lab work unremarkable including a negative troponin. Chest x- ray reveals no acute process. Patient had a stress test on 02/29/2024 that was negative. He was also evaluated here 3 days ago for chest pain and workup was negative at that time. Pain was treated in the emergency department and he was discharged home in stable condition. Advised follow-up with cardiology and his PCP. Case discussed with ED attending Dr. Vizcarra. Return precautions reviewed in depth, the patient is instructed to return to the emergency department with any new, worsening, or concerning symptoms. Patient verbalized understanding. Undiagnosed new problem with uncertain prognosis? @ -None Drug Therapy requiring intensive monitoring for toxicity (Heparin, Nitro, Insulin, Cardizem)? @ -None Were any procedures done? @ -None Diagnosis/symptom? @ -Chest pain Acute, or Chronic, or Acute on Chronic? @ -Acute Uncomplicated (without systemic symptoms) or Complicated (systemic symptoms)? @ -Uncomplicated Side effects of treatment? @ -None Exacerbation, Progression, or Severe Exacerbation] @ -Not applicable Poses a threat to life or bodily function? @ -Unlikely Disposition Clinical Impression: Chest pain, Nicotine dependence Disposition: HOME SELF-CARE Instructions (If sedation given, give patient instructions): Chest Pain (ED) Additional Instructions: Return to the emergency department with any new, worsening, or concerning symptoms. Follow up with your primary care provider in 1-2 days. Is patient prescribed a controlled substance at d/c from ED?: No Referrals: Catherine Narayan MD [Primary Care Provider] - 1-2 days Time of Disposition: 12:21
[2024-03-07 11:34] LABS: INR 0.9 (<1.2); Partial Thromboplastin Time 22.7 sec (22.0-30.0); Prothrombin Time 9.8 sec (10.0-12.5)
[2024-03-07 11:36] LABS: ALT 36 U/L (4-49); AST 31 U/L (17-59); African American GFR (CKD) >90 (>60 ml/min/1.73 sqM); Albumin 4.1 g/dL (3.5-5.0); Alkaline Phosphatase 68 U/L (38-126); Anion Gap 6 mmol/L; Blood Urea Nitrogen 13 mg/dL (9-20); Calcium 9.7 mg/dL (8.4-10.2); Carbon Dioxide 26 mmol/L (22-30); Chloride 109 mmol/L (98-107); Glucose 113 mg/dL (74-99); Magnesium 2.2 mg/dL (1.6-2.3); Non-African American GFR(CKD) >90 (>60 ml/min/1.73 sqM); Potassium 4.3 mmol/L (3.5-5.1); Sodium 141 mmol/L (137-145); Total Bilirubin 0.4 mg/dL (0.2-1.3); Total Protein 6.1 g/dL (6.3-8.2)
[2024-03-07 11:41] LABS: Basophils % (A) 0 %; Eosinophils # (A) 0.3 k/uL (0-0.7); Eosinophils % (A) 4 %; HCT 42.4 % (39.0-53.0); HGB 14.9 gm/dL (13.0-17.5); Lymphocytes # (A) 1.4 k/uL (1.0-4.8); Lymphocytes % (A) 24 %; MCH 31.3 pg (25.0-35.0); MCHC 35.2 g/dL (31.0-37.0); MCV 88.9 fL (80.0-100.0); Mean Platelet Volume 7.8; Monocytes # (A) 0.3 k/uL (0-1.0); Monocytes % (A) 6 %; Neutrophils # (A) 3.6 k/uL (1.3-7.7); Neutrophils % (A) 63 %; Platelet Count 201 k/uL (150-450); RBC 4.77 m/uL (4.30-5.90); RDW 13.7 % (11.5-15.5); WBC 5.6 k/uL (3.8-10.6)
[2024-03-07] MEDS: SODIUM CHLORIDE 0.9% 1,000 ML IV STA (11:48)
[2024-03-07] MEDS: ONDANSETRON 4 MG/2 ML VIAL IVP STA (11:49)
[2024-03-07] MEDS: KETOROLAC 15 MG/ML 1 ML VIAL IVP STA ×2 (11:50→12:31)
[2024-03-07] MEDS: CYCLOBENZAPRINE 10 MG TAB PO STA (12:32)
[2024-03-07] MEDS: MORPHINE SULFATE 4 MG/ML SYRINGE IVP STA (12:33)
[2024-03-07 12:41] VITALS: BP 111/82; PULSE 46; RESP 16; TEMP 98.4
== END 2024-03-07 12:41 | disposition home or self-care (01) ==
LOC: EC 09:44
DX: R07.9 Chest pain, unspecified (principal); E78.5 Hyperlipidemia, unspecified; I10 Essential (primary) hypertension; F17.200 Nicotine dependence, unspecified, uncomplicated; Z91.040 Latex allergy status; Z88.8 Allergy status to other drugs, medicaments and biological substances; Z91.048 Other nonmedicinal substance allergy status; Z88.2 Allergy status to sulfonamides; Z88.1 Allergy status to other antibiotic agents
CPT/HCPCS: 99406; 99285; 36415; 93005; 80053; 83735; 84484; 85025; 85610; 85730; 71046; J2270; J2405; J1885

== ENCOUNTER 2024-03-08 14:23 | Emergency (ER) | payer MEDICARE ==
--- NOTE | 2024-03-08 14:43 | ED ---
Chest Pain HPI - General Source: patient, RN notes reviewed Mode of arrival: wheelchair Limitations: no limitations <Felicita Lugo - Last Filed: 03/08/24 14:38> - General Source: patient, RN notes reviewed <Vivian Torres - Last Filed: 03/08/24 18:51> - General Stated Complaint: Chest Pain Time Seen by Provider: 03/08/24 14:38 - History of Present Illness Initial Comments: Quick note: 53-year-old male presented to ER with a chief complaint of chest discomfort. Patient also is reporting shortness of breath. He denies chest discomfort as a stabbing sharp sensation. Patient seen yesterday for similar complaints. He states symptoms have since worsened. (Felicita Lugo) 53-year-old male presenting to the ER with chief complaint of shortness of breath and chest discomfort. States his symptoms are chronic in nature, describes pain as sharp in nature. Pain does not radiate. He does have a history of asthma and has been taking his inhaler with little improvement in symptoms. He has had multiple ER visits for same complaint over the past couple of weeks. He has an appointment with his environmental auditor tomorrow morning. He does take insulin for diabetes. (Vivian Torres) - Related Data Home Medications Medication Instructions Recorded Confirmed Nitroglycerin Sl Tabs [Nitrostat] 0.4 mg SL Q5M PRN 08/20/23 03/04/24 Insulin Glargine,Hum.rec.anlog 15 units SQ HS 12/06/23 03/04/24 [Lantus Solostar Pen] Albuterol Inhaler [Ventolin Hfa 1 - 2 puff INHALATION RT-Q6H PRN 02/25/24 03/04/24 Inhaler] Albuterol Nebulized [Ventolin 2.5 mg INHALATION RT-QID PRN 02/25/24 03/04/24 Nebulized] Empagliflozin [Jardiance] 25 mg PO DAILY 02/25/24 03/04/24 Lidocaine 5% Patch [Lidoderm 5% 1 patch TRANSDERM DAILY 02/25/24 03/04/24 Patch] Omeprazole 40 mg PO DAILY 02/25/24 03/04/24 Tamsulosin [Flomax] 0.4 mg PO BID 02/25/24 03/04/24 amLODIPine [Norvasc] 10 mg PO DAILY 02/25/24 03/04/24 hydrOXYzine pamoate [Vistaril] 50 mg PO HS PRN 02/25/24 03/04/24 Benzonatate [Tessalon Perles] 100 mg PO TID PRN 02/27/24 03/04/24 Hyoscyamine Sulfate [Levsin-Sl] 0.125 mg SL QID PRN 02/27/24 03/04/24 hydrOXYzine pamoate [Vistaril] 25 mg PO BID 03/04/24 03/04/24 Previous Rx's Medication Instructions Recorded ARIPiprazole [Abilify] 15 mg PO DAILY 30 Days #30 tab 12/13/23 Aspirin EC [Ecotrin Low Dose] 81 mg PO DAILY 30 Days #30 tab 12/13/23 Atorvastatin [Lipitor] 10 mg PO HS 30 Days #30 tab 12/13/23 Budesonide-Formot 160-4.5 Mcg 2 puff INHALATION RT-BID 30 Days 12/13/23 [Symbicort 160-4.5 Mcg Inhaler] #1 each Cholecalciferol (Vitamin D3) 50 mcg PO DAILY 30 Days #30 tab 12/13/23 [Vitamin D3 (50 Mcg = 2000 Iu)] Famotidine [Pepcid] 20 mg PO BID PRN 30 Days #60 tab 12/13/23 Ipratropium-Albuterol Nebulize 3 ml INHALATION RT-QID PRN 30 Days 12/13/23 [Duoneb 0.5 mg-3 mg/3 ml Soln] #1 each Montelukast [Singulair] 10 mg PO HS 30 Days #30 tab 12/13/23 Sertraline [Zoloft] 100 mg PO HS 30 Days #30 tab 12/13/23 Ondansetron Odt [Zofran ODT] 4 mg PO Q8HR PRN #10 tab 01/04/24 traZODone HCL [Desyrel] 100 mg PO HS tab 02/22/24 Allergies Allergy/AdvReac Type Severity Reaction Status Date / Time dicyclomine HCl [From Bentyl] Allergy Unknown Dyspnea Verified 03/08/24 14:53 latex Allergy Unknown Rash/Hives Verified 03/08/24 14:53 Benzoate Analogues Allergy Unknown Verified 03/08/24 14:53 nitrofurantoin Allergy Nausea Verified 03/08/24 14:53 [From Macrobid] Penicillins Allergy "[place] Verified 03/08/24 14:53 funny" adhesive AdvReac Unknown Itching Verified 03/08/24 14:53 ciprofloxacin AdvReac Unknown Nausea Verified 03/08/24 14:53 Macrolide Antibiotics AdvReac Unknown Nausea Verified 03/08/24 14:53 sulfamethoxazole AdvReac Unknown Unknown Verified 03/08/24 14:53 [From Bactrim] trimethoprim [From Bactrim] AdvReac Unknown Unknown Verified 03/08/24 14:53 diphenhydramine AdvReac Confusion Verified 03/08/24 14:53 [From Benadryl] Review of Systems ROS Other: All systems not noted in ROS Statement are negative. <Felicita Lugo - Last Filed: 03/08/24 14:38> ROS Other: All systems not noted in ROS Statement are negative. <Vivian Torres - Last Filed: 03/08/24 18:51> ROS Statement: Those systems with pertinent positive or pertinent negative responses have been documented in the HPI. EKG Findings - EKG Results: EKG: interpreted by ERMD (EKG reveals normal sinus rhythm with no ST changes. Ventricular rate 61 bpm, LA interval 149, QRS duration 107, QT/QTc 402/406) <Vivian Torres - Last Filed: 03/08/24 18:51> Past Medical History Past Medical History: Asthma, Chest Pain / Angina, COPD, CVA/TIA, Diabetes Mellitus, GERD/Reflux, Hearing Disorder / Deafness, Hyperlipidemia, Hypertension, Liver Disease, Osteoarthritis (OA), Pneumonia, Seizure Disorder, Sleep Apnea/CPAP/BIPAP Additional Past Medical History / Comment(s): states CVA at 35 yrs old, no weakness @ this time. states seizure at 35 yrs old., DDD- back & neck pain., carpal tunnel syndrome. Has [employer] public guardian. History of Any Multi-Drug Resistant Organisms: None Reported Past Surgical History: Heart Catheterization, Orthopedic Surgery Additional Past Surgical History / Comment(s): Cysts removed, left thumb surgery, colonoscopy 08/24/2019. Skin tags removed from both eyes. Past Anesthesia/Blood Transfusion Reactions: Unable to Obtain, Motion Sickness, Postoperative Nausea & Vomiting (PONV) Past Psychological History: Anxiety, Bipolar, Depression, Schizophrenia Smoking Status: Current every day smoker Past Alcohol Use History: None Reported Past Drug Use History: None Reported - Past Family History Brother(s) Family Medical History: Diabetes Mellitus Additional Family Medical History / Comment(s): Patient has 2 brothers. One from complications from diabetes. The second is alive with diabetes. Sister(s) Family Medical History: Cancer Additional Family Medical History / Comment(s): Patient has one sister with breast cancer. Patient does not have any children. Father Family Medical History: Cancer Additional Family Medical History / Comment(s): Father in his 40s or 50s from colon cancer. Mother Family Medical History: Cancer Additional Family Medical History / Comment(s): Mother at age 68 from lung cancer. <Felicita Lugo - Last Filed: 03/08/24 14:38> General Exam <Felicita Lugo - Last Filed: 03/08/24 14:38> General appearance: alert, in no apparent distress Head exam: Present: atraumatic, normocephalic, normal inspection ENT exam: Present: normal exam, mucous membranes moist Respiratory exam: Present: normal lung sounds bilaterally, wheezes (Mild diffuse expiratory wheezing in all lung robins bilaterally). Absent: respiratory di stress, rales, rhonchi, stridor, chest wall tenderness, accessory muscle use Cardiovascular Exam: Present: regular rate, normal rhythm, normal heart sounds. Absent: systolic murmur, diastolic murmur, rubs, gallop, clicks GI/Abdominal exam: Present: soft, normal bowel sounds. Absent: distended, tenderness, guarding, rebound, rigid Neurological exam: Present: alert, oriented X3 Psychiatric exam: Present: normal affect, normal mood Skin exam: Present: warm, dry, intact, normal color. Absent: rash <Vivian Torres - Last Filed: 03/08/24 18:51> - General Exam Comments Initial Comments: Visual Physical Exam Vital signs reviewed General: Well-appearing, nontoxic, no acute distress. Head: Normocephalic, atraumatic Eyes: PERRLA, EOMI ENT: Airway patent Chest: Nonlabored breathing Skin: No visual rash, normal skin tone Neuro: Alert and oriented 3 Musculoskeletal: No gross abnormalities (Felicita Lugo) Course Vital Signs 03/08/24 03/08/24 14:51 17:56 Temperature 97.5 F L Pulse Rate 68 50 L Respiratory 20 16 Rate Blood Pressure 115/76 111/70 O2 Sat by Pulse 96 97 Oximetry Chest Pain MDM <Felicita Lugo - Last Filed: 03/08/24 14:38> <Colette Torresna - Last Filed: 03/08/24 18:51> - MDM I performed the quick note portion of this chart. Electronically signed by Felicita Lugo PA-C (Felicita Lugo) Was pt. sent in by a medical professional or institution ([facility], [employer], urgent care, hospital, or prison...) When possible be specific @ -No Did you speak to anyone other than the patient for history (EMS, parent, family, police, friend...)? What history was obtained from this source @ -No Did you review nursing and triage notes (agree or disagree)? Why? @ -I reviewed and agree with nursing and triage notes Were old charts reviewed (outside hosp., previous admission, EMS record, old EKG, old radiological studies, urgent care reports/EKG's, prison records)? Report findings @ -Previous ER visits reviewed from the past week Differential Diagnosis (chest pain, altered mental status, abdominal pain women, abdominal pain men, vaginal bleeding, weakness, fever, dyspnea, syncope, headache, dizziness, GI bleed, back pain, seizure, CVA, palpatations, mental health, musculoskeletal)? @ -Differential Chest Pain: Stable Angina, Unstable Angina, STEMI, NSTEMI Aortic Dissection, Pneumothorax, Musculoskeletal, Esophageal Spasm GERD, Cholecystitis, Pancreatitis, Zoster, this is not meant to be an all-inclusive list. EKG interpreted by me (3pts min.). @ -As above X-rays interpreted by me (1pt min.). @ -Chest x-ray reveals no acute process CT interpreted by me (1pt min.). @ -None done U/S interpreted by me (1pt. min.). @ -None done What testing was considered but not performed or refused? (CT, X-rays, U/S, labs)? Why? @ -None What meds were considered but not given or refused? Why? @ -Considered Solu-Medrol injection however patient takes insulin for diabetes Did you discuss the management of the patient with other professionals (professionals i.e. , PA, [employer], lab, RT, psych nurse, social work professor, snack foods mixer operator, teacher, third officer, window caser)? Give summary @ -No Was smoking cessation discussed for >3mins.? @ -No Was critical care preformed (if so, how long)? @ -No Were there social determinants of health that impacted care today? How? (Homelessness, low income, unemployed, alcoholism, drug addiction, transportation, low edu. Level, literacy, decrease access to med. care, halfway, rehab)? @ -No Was there de-escalation of care discussed even if they declined (Discuss DNR or withdrawal of care, Hospice)? DNR status @ -No What co-morbidities impacted this encounter? (DM, HTN, Smoking, COPD, CAD, Cancer, CVA, ARF, Chemo, Hep., AIDS, mental health diagnosis, sleep apnea, morbid obesity)? @ -None Was patient admitted / discharged? Hospital course, mention meds given and route, prescriptions, significant lab abnormalities, going to OR and other pertinent info. @ -Patient was discharged. This is a 53-year-old male presenting with chest pain. Patient has had multiple ER visits for this in the past week. Describes symptoms as chronic in nature. Patient has been recently admitted for this issue and is following with environmental auditor, has upcoming appointment tomorrow morning. Vitals are within normal limits, no acute distress. There is mild diffuse expiratory wheezing, considered steroids injection however patient is taking insulin for diabetes. EKG revealed normal sinus rhythm with no ST changes. Chest x-ray shows no acute process. Laboratory studies including CBC, CMP, coags, troponin were unremarkable. Findings discussed with patient. As patient has had recent admission and multiple workups for same symptoms, I do not believe admission would provide further benefit at this time. Patient will follow-up tomorrow for cardiology appointment, patient agrees to plan and feels stable for discharge at this time. Case was discussed with my ED attending Dr. Felix. Patient discharged in stable condition. Undiagnosed new problem with uncertain prognosis? @ -No Drug Therapy requiring intensive monitoring for toxicity (Heparin, Nitro, Insulin, Cardizem)? @ -No Were any procedures done? @ -No Diagnosis/symptom? @ -Chest pain Acute, or Chronic, or Acute on Chronic? @ -Chronic Uncomplicated (without systemic symptoms) or Complicated (systemic symptoms)? @ -Uncomplicated Side effects of treatment? @ -No Exacerbation, Progression, or Severe Exacerbation? @ -No Poses a threat to life or bodily function? How? (Chest pain, [place], [place], pneumonia, PE, COPD, DKA, ARF, appy, cholecystitis, CVA, Diverticulitis, Homicidal, Suicidal, threat to staff... and all critical care pts) @ -Unlikely at this time (Vivian Torres) Disposition <Felicita Lugo - Last Filed: 03/08/24 14:38> Is patient prescribed a controlled substance at d/c from ED?: No Time of Disposition: 17:39 <Vivian Torres - Last Filed: 03/08/24 18:51> Clinical Impression: Shortness of breath, Chest pain Disposition: HOME SELF-CARE Condition: Stable Instructions (If sedation given, give patient instructions): Chest Pain (ED) Additional Instructions: Follow-up for cardiology appointment in the morning. Please return to the Emergency Department if symptoms worsen or any other concerns. Referrals: Catherine Narayan MD [Primary Care Provider] - 1-2 days
[2024-03-08 14:53] VITALS: TEMP 97.5
--- NOTE | 2024-03-08 15:46 | XR ---
EXAMINATION TYPE: XR chest 2V DATE OF EXAM: 03/08/2024 3:35 PM CLINICAL INDICATION: Male, 53 years old with history of Chest Pain; COMPARISON: Chest radiographs from 03/07/2024 TECHNIQUE: XR chest 2V Frontal view of the chest. FINDINGS: Lungs/Pleura: There is no evidence of pleural effusion, focal consolidation, or pneumothorax. Pulmonary vascularity: Unremarkable. Heart/mediastinum: Cardiomediastinal silhouette is unremarkable. Musculoskeletal: No acute osseous pathology. Other findings: None IMPRESSION: No acute cardiopulmonary disease/process.
[2024-03-08 15:57] LABS: Basophils % (A) 0 %; Eosinophils # (A) 0.2 k/uL (0-0.7); Eosinophils % (A) 3 %; HCT 42.5 % (39.0-53.0); Lymphocytes # (A) 1.3 k/uL (1.0-4.8); Lymphocytes % (A) 18 %; MCH 31.2 pg (25.0-35.0); MCHC 35.3 g/dL (31.0-37.0); MCV 88.6 fL (80.0-100.0); Mean Platelet Volume 7.9; Monocytes # (A) 0.3 k/uL (0-1.0); Monocytes % (A) 4 %; Neutrophils % (A) 73 %; Platelet Count 213 k/uL (150-450); RDW 13.8 % (11.5-15.5); WBC 6.9 k/uL (3.8-10.6)
[2024-03-08 16:10] LABS: INR 0.9 (<1.2); Partial Thromboplastin Time 23.5 sec (22.0-30.0)
[2024-03-08 16:24] LABS: ALT 38 U/L (4-49); AST 28 U/L (17-59); African American GFR (CKD) >90 (>60 ml/min/1.73 sqM); Albumin 4.4 g/dL (3.5-5.0); Alkaline Phosphatase 77 U/L (38-126); Anion Gap 11 mmol/L; Blood Urea Nitrogen 12 mg/dL (9-20); Calcium 9.8 mg/dL (8.4-10.2); Carbon Dioxide 21 mmol/L (22-30); Chloride 110 mmol/L (98-107); Glucose 166 mg/dL (74-99); Non-African American GFR(CKD) >90 (>60 ml/min/1.73 sqM); Sodium 142 mmol/L (137-145); Total Bilirubin 0.5 mg/dL (0.2-1.3); Total Protein 6.4 g/dL (6.3-8.2)
[2024-03-08] MEDS: methylPREDNISolone SOD SUCCI 125 MG/2 ML VIAL IM ONE (17:50)
[2024-03-08 17:58] VITALS: BP 111/70; PULSE 50; RESP 16
== END 2024-03-08 17:57 | disposition home or self-care (01) ==
LOC: EC 14:23
CPT/HCPCS: 36415; 71046; 80053; 83735; 84484; 85025; 85610; 85730; 93005; 99285

== ENCOUNTER 2024-03-15 13:32 | Emergency (ER) | payer MEDICARE, OTHER ==
[2024-03-15 13:41] VITALS: TEMP 97.4
[2024-03-15 13:44] VITALS: PULSE 66
--- NOTE | 2024-03-15 14:04 | ED ---
General Adult HPI - General Chief complaint: Dizziness Stated complaint: dizzy/lightheaded/nausea Time Seen by Provider: 03/15/24 13:35 Source: patient, EMS, RN notes reviewed, old records reviewed Mode of arrival: EMS Limitations: no limitations - History of Present Illness Initial comments: 3-year-old male presents with multiple complaints including lightheadedness, nausea, joint pain. Patient does admit these are all chronic issues. Patient was found by paramedics eating lunch. He has no central chest pain. He denies fever. No difficulty breathing. No nausea vomiting. No focal numbness or weakness. Patient is awake and alert at the time my evaluation. - Related Data Home Medications Medication Instructions Recorded Confirmed Nitroglycerin Sl Tabs [Nitrostat] 0.4 mg SL Q5M PRN 08/20/23 03/04/24 Insulin Glargine,Hum.rec.anlog 15 units SQ HS 12/06/23 03/04/24 [Lantus Solostar Pen] Albuterol Inhaler [Ventolin Hfa 1 - 2 puff INHALATION RT-Q6H PRN 02/25/24 03/04/24 Inhaler] Albuterol Nebulized [Ventolin 2.5 mg INHALATION RT-QID PRN 02/25/24 03/04/24 Nebulized] Empagliflozin [Jardiance] 25 mg PO DAILY 02/25/24 03/04/24 Lidocaine 5% Patch [Lidoderm 5% 1 patch TRANSDERM DAILY 02/25/24 03/04/24 Patch] Omeprazole 40 mg PO DAILY 02/25/24 03/04/24 Tamsulosin [Flomax] 0.4 mg PO BID 02/25/24 03/04/24 amLODIPine [Norvasc] 10 mg PO DAILY 02/25/24 03/04/24 hydrOXYzine pamoate [Vistaril] 50 mg PO HS PRN 02/25/24 03/04/24 Benzonatate [Tessalon Perles] 100 mg PO TID PRN 02/27/24 03/04/24 Hyoscyamine Sulfate [Levsin-Sl] 0.125 mg SL QID PRN 02/27/24 03/04/24 hydrOXYzine pamoate [Vistaril] 25 mg PO BID 03/04/24 03/04/24 Previous Rx's Medication Instructions Recorded ARIPiprazole [Abilify] 15 mg PO DAILY 30 Days #30 tab 12/13/23 Aspirin EC [Ecotrin Low Dose] 81 mg PO DAILY 30 Days #30 tab 12/13/23 Atorvastatin [Lipitor] 10 mg PO HS 30 Days #30 tab 12/13/23 Budesonide-Formot 160-4.5 Mcg 2 puff INHALATION RT-BID 30 Days 12/13/23 [Symbicort 160-4.5 Mcg Inhaler] #1 each Cholecalciferol (Vitamin D3) 50 mcg PO DAILY 30 Days #30 tab 12/13/23 [Vitamin D3 (50 Mcg = 2000 Iu)] Famotidine [Pepcid] 20 mg PO BID PRN 30 Days #60 tab 12/13/23 Ipratropium-Albuterol Nebulize 3 ml INHALATION RT-QID PRN 30 Days 12/13/23 [Duoneb 0.5 mg-3 mg/3 ml Soln] #1 each Montelukast [Singulair] 10 mg PO HS 30 Days #30 tab 12/13/23 Sertraline [Zoloft] 100 mg PO HS 30 Days #30 tab 12/13/23 Ondansetron Odt [Zofran ODT] 4 mg PO Q8HR PRN #10 tab 01/04/24 traZODone HCL [Desyrel] 100 mg PO HS tab 02/22/24 Allergies Allergy/AdvReac Type Severity Reaction Status Date / Time dicyclomine HCl [From Bentyl] Allergy Unknown Dyspnea Verified 03/15/24 13:41 latex Allergy Unknown Rash/Hives Verified 03/15/24 13:41 Benzoate Analogues Allergy Unknown Verified 03/15/24 13:41 nitrofurantoin Allergy Nausea Verified 03/15/24 13:41 [From Macrobid] Penicillins Allergy "[place] Verified 03/15/24 13:41 funny" adhesive AdvReac Unknown Itching Verified 03/15/24 13:41 ciprofloxacin AdvReac Unknown Nausea Verified 03/15/24 13:41 Macrolide Antibiotics AdvReac Unknown Nausea Verified 03/15/24 13:41 sulfamethoxazole AdvReac Unknown Unknown Verified 03/15/24 13:41 [From Bactrim] trimethoprim [From Bactrim] AdvReac Unknown Unknown Verified 03/15/24 13:41 diphenhydramine AdvReac Confusion Verified 03/08/24 14:53 [From Benadryl] Review of Systems ROS Statement: Those systems with pertinent positive or pertinent negative responses have been documented in the HPI. ROS Other: All systems not noted in ROS Statement are negative. Past Medical History Past Medical History: Asthma, Chest Pain / Angina, COPD, CVA/TIA, Diabetes Mellitus, GERD/Reflux, Hearing Disorder / Deafness, Hyperlipidemia, Hypertension, Liver Disease, Osteoarthritis (OA), Pneumonia, Seizure Disorder, Sleep Apnea/CPAP/BIPAP Additional Past Medical History / Comment(s): states CVA at 35 yrs old, no weakness @ this time. states seizure at 35 yrs old., DDD- back & neck pain., carpal tunnel syndrome. Has [employer] public guardian. History of Any Multi-Drug Resistant Organisms: None Reported Past Surgical History: Heart Catheterization, Orthopedic Surgery Additional Past Surgical History / Comment(s): Cysts removed, left thumb surgery, colonoscopy 08/24/2019. Skin tags removed from both eyes. Past Anesthesia/Blood Transfusion Reactions: Unable to Obtain, Motion Sickness, Postoperative Nausea & Vomiting (PONV) Past Psychological History: Anxiety, Bipolar, Depression, Schizophrenia Smoking Status: Current every day smoker Past Alcohol Use History: None Reported Past Drug Use History: None Reported - Past Family History Brother(s) Family Medical History: Diabetes Mellitus Additional Family Medical History / Comment(s): Patient has 2 brothers. One from complications from diabetes. The second is alive with diabetes. Sister(s) Family Medical History: Cancer Additional Family Medical History / Comment(s): Patient has one sister with breast cancer. Patient does not have any children. Father Family Medical History: Cancer Additional Family Medical History / Comment(s): Father in his 40s or 50s from colon cancer. Mother Family Medical History: Cancer Additional Family Medical History / Comment(s): Mother at age 68 from lung cancer. General Exam Limitations: no limitations General appearance: alert, in no apparent distress Head exam: Present: atraumatic, normocephalic Eye exam: Present: normal appearance, PERRL ENT exam: Present: normal exam Neck exam: Present: normal inspection. Absent: meningismus Respiratory exam: Present: normal lung sounds bilaterally. Absent: respiratory distress Cardiovascular Exam: Absent: regular rate, normal rhythm GI/Abdominal exam: Present: soft. Absent: distended, tenderness, guarding Extremities exam: Present: normal inspection, normal capillary refill. Absent: pedal edema Neurological exam: Present: alert, oriented X3, CN II-XII intact. Absent: motor sensory deficit Psychiatric exam: Present: normal affect, normal mood Skin exam: Present: warm, dry, intact. Absent: cyanosis, diaphoretic Course Vital Signs 03/15/24 13:37 Temperature 97.4 F L Pulse Rate 66 Respiratory 16 Rate Blood Pressure 120/78 O2 Sat by Pulse 95 Oximetry Medical Decision Making - Medical Decision Making Was pt. sent in by a medical professional or institution (, SEAN, CLOTH CARRIER, urgent care, hospital, or group home...) When possible be specific @ -No Did you speak to anyone other than the patient for history (EMS, parent, family, police, friend...)? What history was obtained from this source @ -No Did you review nursing and triage notes (agree or disagree)? Why? @ -I reviewed and agree with nursing and triage notes Were old charts reviewed (outside hosp., previous admission, EMS record, old EKG, old radiological studies, urgent care reports/EKG's, group home records)? Report findings @ -No old charts were reviewed Differential Musculoskeletal Muscular strain, contusion, ligament sprain, fracture, arthritis, septic arthritis, bursitis, cellulitis, muscle spasm, nerve compression, DVT, arterial occlusion, herpes zoster, electrolyte abnormality, tumor.... This is not meant t o be in all inclusive list EKG interpreted by me (3pts min.). @ -EKG: Sinus rhythm incomplete right bundle branch block, rate 64, MD interval 137, QRS duration 106, QTc [address] segment changes. X-rays interpreted by me (1pt min.). @ -None done CT interpreted by me (1pt min.). @ -None done U/S interpreted by me (1pt. min.). @ -None done What testing was considered but not performed or refused? (CT, X-rays, U/S, labs)? Why? @ -None What meds were considered but not given or refused? Why? @ -None Did you discuss the management of the patient with other professionals (professionals i.e. , SEAN, CLOTH CARRIER, lab, RT, psych nurse, social psychologist, front counter clerk, teacher, dental officer, watch caser)? Give summary @ -No Was smoking cessation discussed for >3mins.? @ -No Was critical care preformed (if so, how long)? @ -No Were there social determinants of health that impacted care today? How? (Homelessness, low income, unemployed, alcoholism, drug addiction, transportation, low edu. Level, literacy, decrease access to med. care, [facility], rehab)? @ -No Was there de-escalation of care discussed even if they declined (Discuss DNR or withdrawal of care, Hospice)? DNR status @ -No What co-morbidities impacted this encounter? (DM, HTN, Smoking, COPD, CAD, Cancer, CVA, ARF, Chemo, Hep., AIDS, mental health diagnosis, sleep apnea, morbid obesity)? @ -None Was patient admitted / discharged? Hospital course, mention meds given and route, prescriptions, significant lab abnormalities, going to OR and other pertinent info. @3-year-old male well-known to this emergency department with multiple compl aints, musculoskeletal complaints, nausea, lightheadedness. Patient is well- appearing with normal vitals. He is in sinus rhythm. He appears hydrated. He has no external signs of trauma or injury. Patient is able to eat and drink in the emergency department. He is given Motrin for his pain complaints. I do not identify an emergency at this time. Patient is stable for discharge. Undiagnosed new problem with uncertain prognosis? @ -No Drug Therapy requiring intensive monitoring for toxicity (Heparin, Nitro, Insulin, Cardizem)? @ -No Were any procedures done? @ -No Diagnosis/symptom? @ -[Chronic musculoskeletal complaints Acute, or Chronic, or Acute on Chronic? @ -chronic Uncomplicated (without systemic symptoms) or Complicated (systemic symptoms)? @ -Default Side effects of treatment? @ -No Exacerbation, Progression, or Severe Exacerbation? @ -No Poses a threat to life or bodily function? How? (Chest pain, [place], [place], pneumonia, PE, COPD, DKA, ARF, appy, cholecystitis, CVA, Diverticulitis, Homicidal, Suicidal, threat to staff... and all critical care pts) @ -No Disposition Clinical Impression: Schizo affective schizophrenia Disposition: HOME SELF-CARE Condition: Good Instructions (If sedation given, give patient instructions): Dizziness (ED) Is patient prescribed a controlled substance at d/c from ED?: No Referrals: Catherine Narayan MD [Primary Care Provider] - 1-2 days Time of Disposition: 14:10
[2024-03-15] MEDS: IBUPROFEN 600 MG TAB PO STA (14:11)
[2024-03-15 14:41] VITALS: BP 121/69; RESP 18
== END 2024-03-15 14:41 | disposition home or self-care (01) ==
LOC: EC 13:32
CPT/HCPCS: 93005; 99284

== ENCOUNTER 2024-03-18 01:48 | Emergency (ER) | payer MEDICARE, OTHER ==
[2024-03-18] MEDS: SODIUM CHLORIDE 0.9% 500 ML 500 ML IV STA (02:51)
--- NOTE | 2024-03-18 03:22 | ED ---
Chest Pain HPI - General Chief Complaint: Chest Pain Stated Complaint: CP, Abd Pain, Dizziness Time Seen by Provider: 03/18/24 02:30 Source: patient, RN notes reviewed Mode of arrival: ambulatory Limitations: no limitations - History of Present Illness Initial Comments: 53-year-old male presenting with chest pain worsening over the past week. Describes the pain as sharp in quality and intermittent. He has had multiple ER visits for similar symptoms recently and has been discharged with cardiology follow-up. Denies any new or acute symptoms today. - Related Data Home Medications Medication Instructions Recorded Confirmed Nitroglycerin Sl Tabs [Nitrostat] 0.4 mg SL Q5M PRN 08/20/23 03/04/24 Insulin Glargine,Hum.rec.anlog 15 units SQ HS 12/06/23 03/04/24 [Lantus Solostar Pen] Albuterol Inhaler [Ventolin Hfa 1 - 2 puff INHALATION RT-Q6H PRN 02/25/24 03/04/24 Inhaler] Albuterol Nebulized [Ventolin 2.5 mg INHALATION RT-QID PRN 02/25/24 03/04/24 Nebulized] Empagliflozin [Jardiance] 25 mg PO DAILY 02/25/24 03/04/24 Lidocaine 5% Patch [Lidoderm 5% 1 patch TRANSDERM DAILY 02/25/24 03/04/24 Patch] Omeprazole 40 mg PO DAILY 02/25/24 03/04/24 Tamsulosin [Flomax] 0.4 mg PO BID 02/25/24 03/04/24 amLODIPine [Norvasc] 10 mg PO DAILY 02/25/24 03/04/24 hydrOXYzine pamoate [Vistaril] 50 mg PO HS PRN 02/25/24 03/04/24 Benzonatate [Tessalon Perles] 100 mg PO TID PRN 02/27/24 03/04/24 Hyoscyamine Sulfate [Levsin-Sl] 0.125 mg SL QID PRN 02/27/24 03/04/24 hydrOXYzine pamoate [Vistaril] 25 mg PO BID 03/04/24 03/04/24 Previous Rx's Medication Instructions Recorded ARIPiprazole [Abilify] 15 mg PO DAILY 30 Days #30 tab 12/13/23 Aspirin EC [Ecotrin Low Dose] 81 mg PO DAILY 30 Days #30 tab 12/13/23 Atorvastatin [Lipitor] 10 mg PO HS 30 Days #30 tab 12/13/23 Budesonide-Formot 160-4.5 Mcg 2 puff INHALATION RT-BID 30 Days 12/13/23 [Symbicort 160-4.5 Mcg Inhaler] #1 each Cholecalciferol (Vitamin D3) 50 mcg PO DAILY 30 Days #30 tab 12/13/23 [Vitamin D3 (50 Mcg = 2000 Iu)] Famotidine [Pepcid] 20 mg PO BID PRN 30 Days #60 tab 12/13/23 Ipratropium-Albuterol Nebulize 3 ml INHALATION RT-QID PRN 30 Days 12/13/23 [Duoneb 0.5 mg-3 mg/3 ml Soln] #1 each Montelukast [Singulair] 10 mg PO HS 30 Days #30 tab 12/13/23 Sertraline [Zoloft] 100 mg PO HS 30 Days #30 tab 12/13/23 Ondansetron Odt [Zofran ODT] 4 mg PO Q8HR PRN #10 tab 01/04/24 traZODone HCL [Desyrel] 100 mg PO HS tab 02/22/24 Allergies Allergy/AdvReac Type Severity Reaction Status Date / Time dicyclomine HCl [From Bentyl] Allergy Unknown Dyspnea Verified 03/18/24 01:52 latex Allergy Unknown Rash/Hives Verified 03/18/24 01:52 Benzoate Analogues Allergy Unknown Verified 03/18/24 01:52 nitrofurantoin Allergy Nausea Verified 03/18/24 01:52 [From Macrobid] Penicillins Allergy "[place] Verified 03/18/24 01:52 funny" adhesive AdvReac Unknown Itching Verified 03/18/24 01:52 ciprofloxacin AdvReac Unknown Nausea Verified 03/18/24 01:52 Macrolide Antibiotics AdvReac Unknown Nausea Verified 03/18/24 01:52 sulfamethoxazole AdvReac Unknown Unknown Verified 03/18/24 01:52 [From Bactrim] trimethoprim [From Bactrim] AdvReac Unknown Unknown Verified 03/18/24 01:52 diphenhydramine AdvReac Confusion Verified 03/18/24 01:52 [From Benadryl] Review of Systems ROS Statement: Those systems with pertinent positive or pertinent negative responses have been documented in the HPI. ROS Other: All systems not noted in ROS Statement are negative. EKG Findings - EKG Results: EKG: interpreted by JAQUAND (EKG reveals normal sinus rhythm with no ST changes. Ventricular rate 75 bpm, VT interval 139, QRS duration 108, QT/QTc 382/411) Past Medical History Past Medical History: Asthma, Chest Pain / Angina, COPD, CVA/TIA, Diabetes Mellitus, GERD/Reflux, Hearing Disorder / Deafness, Hyperlipidemia, Hypertension, Liver Disease, Osteoarthritis (OA), Pneumonia, Seizure Disorder, Sleep Apnea/CPAP/BIPAP Additional Past Medical History / Comment(s): states CVA at 35 yrs old, no weakness @ this time. states seizure at 35 yrs old., DDD- back & neck pain., carpal tunnel syndrome. Has [employer] public guardian. History of Any Multi-Drug Resistant Organisms: None Reported Past Surgical History: Heart Catheterization, Orthopedic Surgery Additional Past Surgical History / Comment(s): Cysts removed, left thumb surgery, colonoscopy 08/24/2019. Skin tags removed from both eyes. Past Anesthesia/Blood Transfusion Reactions: Unable to Obtain, Motion Sickness, Postoperative Nausea & Vomiting (PONV) Past Psychological History: Anxiety, Bipolar, Depression, Schizophrenia Smoking Status: Current every day smoker Past Alcohol Use History: None Reported Past Drug Use History: None Reported - Past Family History Brother(s) Family Medical History: Diabetes Mellitus Additional Family Medical History / Comment(s): Patient has 2 brothers. One from complications from diabetes. The second is alive with diabetes. Sister(s) Family Medical History: Cancer Additional Family Medical History / Comment(s): Patient has one sister with breast cancer. Patient does not have any children. Father Family Medical History: Cancer Additional Family Medical History / Comment(s): Father in his 40s or 50s from colon cancer. Mother Family Medical History: Cancer Additional Family Medical History / Comment(s): Mother at age 68 from lung cancer. General Exam Limitations: no limitations General appearance: alert, in no apparent distress Head exam: Present: atraumatic, normocephalic, normal inspection Eye exam: Present: normal appearance, PERRL, EOMI. Absent: scleral icterus, conjunctival injection, periorbital swelling ENT exam: Present: normal exam, mucous membranes moist Neck exam: Present: normal inspection. Absent: tenderness, meningismus, lymphadenopathy Respiratory exam: Present: normal lung sounds bilaterally. Absent: respiratory distress, wheezes, rales, rhonchi, stridor Cardiovascular Exam: Present: regular rate, normal rhythm, normal heart sounds. Absent: systolic murmur, diastolic murmur, rubs, gallop, clicks GI/Abdominal exam: Present: soft, normal bowel sounds. Absent: distended, tenderness, guarding, rebound, rigid Neurological exam: Present: alert, oriented X3 Psychiatric exam: Present: normal affect, normal mood Skin exam: Present: warm, dry, intact, normal color. Absent: rash Course Vital Signs 03/18/24 03/18/24 01:49 03:20 Temperature 98.1 F Pulse Rate 81 68 Respiratory 18 18 Rate Blood Pressure 117/85 O2 Sat by Pulse 98 96 Oximetry Chest Pain MDM - MDM Was pt. sent in by a medical professional or institution (, PA, AIRPLANE RENTAL CLERK, urgent care, hospital, or senior care...) When possible be specific @ -No Did you speak to anyone other than the patient for history (EMS, parent, family, police, friend...)? What history was obtained from this source @ -No Did you review nursing and triage notes (agree or disagree)? Why? @ -I reviewed and agree with nursing and triage notes Were old charts reviewed (outside hosp., previous admission, EMS record, old EKG, old radiological studies, urgent care reports/EKG's, senior care records)? Report findings @ -Previous ER visits reviewed from this month including lab work Differential Diagnosis (chest pain, altered mental status, abdominal pain women, abdominal pain men, vaginal bleeding, weakness, fever, dyspnea, syncope, headache, dizziness, GI bleed, back pain, seizure, CVA, palpatations, mental health, musculoskeletal)? @ -Differential Chest Pain: Stable Angina, Unstable Angina, STEMI, NSTEMI Aortic Dissection, Pneumothorax, Musculoskeletal, Esophageal Spasm GERD, Cholecystitis, Pancreatitis, Zoster, this is not meant to be an all-inclusive list. EKG interpreted by me (3pts min.). @ -As above X-rays interpreted by me (1pt min.). @ -Chest x-ray reveals no acute process CT interpreted by me (1pt min.). @ -None done U/S interpreted by me (1pt. min.). @ -None done What testing was considered but not performed or refused? (CT, X-rays, U/S, labs)? Why? @ -None What meds were considered but not given or refused? Why? @ -None Did you discuss the management of the patient with other professionals (professionals i.e. DrRedd, PA, AIRPLANE RENTAL CLERK, lab, RT, psych nurse, child protective services social worker, area manager, teacher, rating officer, comp field case manager)? Give summary @ -No Was smoking cessation discussed for >3mins.? @ -No Was critical care preformed (if so, how long)? @ -No Were there social determinants of health that impacted care today? How? (Homelessness, low income, unemployed, alcoholism, drug addiction, transportation, low edu. Level, literacy, decrease access to med. care, intermediate, rehab)? @ -No Was there de-escalation of care discussed even if they declined (Discuss DNR or withdrawal of care, Hospice)? DNR status @ -No What co-morbidities impacted this encounter? (DM, HTN, Smoking, COPD, CAD, Cancer, CVA, ARF, Chemo, Hep., AIDS, mental health diagnosis, sleep apnea, morbid obesity)? @ -None Was patient admitted / discharged? Hospital course, mention meds given and route, prescriptions, significant lab abnormalities, going to OR and other pertinent info. @ -Patient was discharged. This is a 53-year-old male presenting with chest pain worsening over the course of the week. Patient has had multiple ER visits for similar complaints recently and has been discharged with cardiology follow- up. Patient was given IV fluids and analgesics during ER workup. Chest x-ray revealed no acute process, EKG normal sinus rhythm with no ST changes. Lab work including CBC, CMP, troponin was unremarkable. Discussed negative findings with patient. Symptoms appear to be chronic in nature rather than acute. Due to recent ER visits and workups as well as hospitalizations for similar symptoms, I do not believe admission would provide further benefit at this time. Patient also reports mild improvement of symptoms upon reevaluation. Patient discharged in stable condition with strict return precautions. Case was discussed with my ED attending Dr. Mulligan. Undiagnosed new problem with uncertain prognosis? @ -No Drug Therapy requiring intensive monitoring for toxicity (Heparin, Nitro, Insulin, Cardizem)? @ -No Were any procedures done? @ -No Diagnosis/symptom? @ -Chest pain Acute, or Chronic, or Acute on Chronic? @ -Acute Uncomplicated (without systemic symptoms) or Complicated (systemic symptoms)? @ -Uncomplicated Side effects of treatment? @ -No Exacerbation, Progression, or Severe Exacerbation? @ -No Poses a threat to life or bodily function? How? (Chest pain, [place], [place], pneumonia, PE, COPD, DKA, ARF, appy, cholecystitis, CVA, Diverticulitis, Homicidal, Suicidal, threat to staff... and all critical care pts) @ -Unlikely at this time Disposition Clinical Impression: Chest pain Disposition: HOME SELF-CARE Condition: Stable Is patient prescribed a controlled substance at d/c from ED?: No Referrals: Catherine Narayan MD [Primary Care Provider] - 1-2 days Time of Disposition: 04:53
[2024-03-18 03:27] LABS: ALT 48 U/L (4-49); AST 29 U/L (17-59); African American GFR (CKD) >90 (>60 ml/min/1.73 sqM); Albumin 4.7 g/dL (3.5-5.0); Alkaline Phosphatase 80 U/L (38-126); Anion Gap 3 mmol/L; Blood Urea Nitrogen 13 mg/dL (9-20); Calcium 9.2 mg/dL (8.4-10.2); Carbon Dioxide 23 mmol/L (22-30); Chloride 111 mmol/L (98-107); Glucose 64 mg/dL (74-99); Non-African American GFR(CKD) >90 (>60 ml/min/1.73 sqM); Potassium 4.3 mmol/L (3.5-5.1); Sodium 137 mmol/L (137-145); Total Bilirubin 0.5 mg/dL (0.2-1.3); Total Protein 6.8 g/dL (6.3-8.2)
[2024-03-18 03:43] LABS: Basophils % (A) 0 %; Eosinophils # (A) 0.3 k/uL (0-0.7); Eosinophils % (A) 3 %; HGB 15.6 gm/dL (13.0-17.5); Lymphocytes # (A) 2.6 k/uL (1.0-4.8); Lymphocytes % (A) 30 %; MCH 30.1 pg (25.0-35.0); MCHC 33.9 g/dL (31.0-37.0); MCV 88.7 fL (80.0-100.0); Mean Platelet Volume 7.6; Monocytes # (A) 0.7 k/uL (0-1.0); Monocytes % (A) 8 %; Neutrophils # (A) 4.9 k/uL (1.3-7.7); Neutrophils % (A) 57 %; Platelet Count 248 k/uL (150-450); RBC 5.19 m/uL (4.30-5.90); RDW 13.1 % (11.5-15.5); WBC 8.6 k/uL (3.8-10.6)
--- NOTE | 2024-03-18 04:55 | XR ---
EXAMINATION TYPE: XR chest 2V DATE OF EXAM: 03/18/2024 COMPARISON: Chest x-ray March 08, 2024 HISTORY: Chest pain TECHNIQUE: Frontal and lateral views of the chest are obtained. FINDINGS: There is no focal air space opacity, pleural effusion, or pneumothorax seen. Mild cardiome brandon. The osseous structures are intact. IMPRESSION: Mild cardiomegaly without acute pulmonary process. [facility], , 03/18/2024 4:53 AM
[2024-03-18 05:41] VITALS: PULSE 60
[2024-03-18 05:42] VITALS: RESP 17
[2024-03-18] MEDS: MORPHINE SULFATE 2 MG/ML SYRINGE IVP ONE (06:04)
[2024-03-18 06:12] VITALS: BP 111/88; TEMP 98
== END 2024-03-18 06:23 | disposition home or self-care (01) ==
LOC: EC 01:48
CPT/HCPCS: 36415; 71046; 80053; 84484; 85025; 93005; 96361; 96374; 99285

== ENCOUNTER 2024-03-18 19:27 | Emergency (ER) | payer MEDICARE, OTHER ==
[2024-03-18 19:32] VITALS: RESP 18
--- NOTE | 2024-03-18 19:51 | ED ---
Recheck HPI - General Chief Complaint: Recheck/Abnormal Lab/Rx Stated Complaint: recheck Time Seen by Provider: 03/18/24 19:29 Source: patient, RN notes reviewed, old records reviewed Mode of arrival: wheelchair Limitations: no limitations - History of Present Illness Initial Comments: This a 53-year-old male to the ER for evaluation. Patient was well-known to this emergency department patient is not feeling well pain all over his entire body. Patient was just in the emergency room yesterday for similar complaints. MD Complaint: other (Recheck pain level chest pain) Returns Today for: persistent/worsening pain related to initial visit Symptoms Since Prior Visit: worsening pain Associated Symptoms: none Treatments Prior to Arrival: other (0) - Related Data Home Medications Medication Instructions Recorded Confirmed Nitroglycerin Sl Tabs [Nitrostat] 0.4 mg SL Q5M PRN 08/20/23 03/04/24 Insulin Glargine,Hum.rec.anlog 15 units SQ HS 12/06/23 03/04/24 [Lantus Solostar Pen] Albuterol Inhaler [Ventolin Hfa 1 - 2 puff INHALATION RT-Q6H PRN 02/25/24 03/04/24 Inhaler] Albuterol Nebulized [Ventolin 2.5 mg INHALATION RT-QID PRN 02/25/24 03/04/24 Nebulized] Empagliflozin [Jardiance] 25 mg PO DAILY 02/25/24 03/04/24 Lidocaine 5% Patch [Lidoderm 5% 1 patch TRANSDERM DAILY 02/25/24 03/04/24 Patch] Omeprazole 40 mg PO DAILY 02/25/24 03/04/24 Tamsulosin [Flomax] 0.4 mg PO BID 02/25/24 03/04/24 amLODIPine [Norvasc] 10 mg PO DAILY 02/25/24 03/04/24 hydrOXYzine pamoate [Vistaril] 50 mg PO HS PRN 02/25/24 03/04/24 Benzonatate [Tessalon Perles] 100 mg PO TID PRN 02/27/24 03/04/24 Hyoscyamine Sulfate [Levsin-Sl] 0.125 mg SL QID PRN 02/27/24 03/04/24 hydrOXYzine pamoate [Vistaril] 25 mg PO BID 03/04/24 03/04/24 Previous Rx's Medication Instructions Recorded ARIPiprazole [Abilify] 15 mg PO DAILY 30 Days #30 tab 12/13/23 Aspirin EC [Ecotrin Low Dose] 81 mg PO DAILY 30 Days #30 tab 12/13/23 Atorvastatin [Lipitor] 10 mg PO HS 30 Days #30 tab 12/13/23 Budesonide-Formot 160-4.5 Mcg 2 puff INHALATION RT-BID 30 Days 12/13/23 [Symbicort 160-4.5 Mcg Inhaler] #1 each Cholecalciferol (Vitamin D3) 50 mcg PO DAILY 30 Days #30 tab 12/13/23 [Vitamin D3 (50 Mcg = 2000 Iu)] Famotidine [Pepcid] 20 mg PO BID PRN 30 Days #60 tab 12/13/23 Ipratropium-Albuterol Nebulize 3 ml INHALATION RT-QID PRN 30 Days 12/13/23 [Duoneb 0.5 mg-3 mg/3 ml Soln] #1 each Montelukast [Singulair] 10 mg PO HS 30 Days #30 tab 12/13/23 Sertraline [Zoloft] 100 mg PO HS 30 Days #30 tab 12/13/23 Ondansetron Odt [Zofran ODT] 4 mg PO Q8HR PRN #10 tab 01/04/24 traZODone HCL [Desyrel] 100 mg PO HS tab 02/22/24 Prochlorperazine [Compazine] 10 mg PO Q6H #15 tab 03/19/24 Allergies Allergy/AdvReac Type Severity Reaction Status Date / Time dicyclomine HCl [From Bentyl] Allergy Unknown Dyspnea Verified 03/22/24 16:03 latex Allergy Unknown Rash/Hives Verified 03/22/24 16:03 Benzoate Analogues Allergy Unknown Verified 03/22/24 16:03 nitrofurantoin Allergy Nausea Verified 03/22/24 16:03 [From Macrobid] Penicillins Allergy "[place] Verified 03/22/24 16:03 funny" adhesive AdvReac Unknown Itching Verified 03/22/24 16:03 ciprofloxacin AdvReac Unknown Nausea Verified 03/22/24 16:03 Macrolide Antibiotics AdvReac Unknown Nausea Verified 03/22/24 16:03 sulfamethoxazole AdvReac Unknown Unknown Verified 03/22/24 16:03 [From Bactrim] trimethoprim [From Bactrim] AdvReac Unknown Unknown Verified 03/22/24 16:03 diphenhydramine AdvReac Confusion Verified 03/22/24 16:03 [From Benadryl] Review of Systems ROS Statement: Those systems with pertinent positive or pertinent negative responses have been documented in the HPI. ROS Other: All systems not noted in ROS Statement are negative. Past Medical History Past Medical History: Asthma, Chest Pain / Angina, COPD, CVA/TIA, Diabetes Mellitus, GERD/Reflux, Hearing Disorder / Deafness, Hyperlipidemia, Hypertension, Liver Disease, Osteoarthritis (OA), Pneumonia, Seizure Disorder, Sleep Apnea/CPAP/BIPAP Additional Past Medical History / Comment(s): states CVA at 35 yrs old, no weakness @ this time. states seizure at 35 yrs old., DDD- back & neck pain., carpal tunnel syndrome. Has [employer] public guardian. History of Any Multi-Drug Resistant Organisms: None Reported Past Surgical History: Heart Catheterization, Orthopedic Surgery Additional Past Surgical History / Comment(s): Cysts removed, left thumb surgery, colonoscopy 08/24/2019. Skin tags removed from both eyes. Past Anesthesia/Blood Transfusion Reactions: Unable to Obtain, Motion Sickness, Postoperative Nausea & Vomiting (PONV) Past Psychological History: Anxiety, Bipolar, Depression, Schizophrenia Smoking Status: Current every day smoker Past Alcohol Use History: None Reported Past Drug Use History: None Reported - Past Family History Brother(s) Family Medical History: Diabetes Mellitus Additional Family Medical History / Comment(s): Patient has 2 brothers. One from complications from diabetes. The second is alive with diabetes. Sister(s) Family Medical History: Cancer Additional Family Medical History / Comment(s): Patient has one sister with breast cancer. Patient does not have any children. Father Family Medical History: Cancer Additional Family Medical History / Comment(s): Father in his 40s or 50s from colon cancer. Mother Family Medical History: Cancer Additional Family Medical History / Comment(s): Mother at age 68 from lung cancer. General Exam Limitations: no limitations General appearance: alert, in no apparent distress Head exam: Present: atraumatic, normocephalic, normal inspection Eye exam: Present: normal appearance Respiratory exam: Absent: respiratory distress Neurological exam: Present: alert Psychiatric exam: Present: agitated Course Vital Signs 03/18/24 03/18/24 19:30 20:12 Temperature 98 F 98.0 F Pulse Rate 67 77 Respiratory 18 18 Rate Blood Pressure 135/80 144/79 O2 Sat by Pulse 97 97 Oximetry - Reevaluation(s) Reevaluation #1: 03/18/24 19:47 Medical records reviewed Reevaluation #2: 03/18/24 19:47 Patient evaluated here in the ER Patient refusing any significant physical exam patient informed that we are unable to do any further testing on him at this time causing her to become extremely irritated Reevaluation #3: 03/18/24 19:48 Patient informed of treatment plan and questions answered Reevaluation #4: Was pt. sent in by a medical professional or institution (SEAN Cordova, GAS APPLIANCE SERVICER HELPER, urgent care, hospital, or assisted...) When possible be specific @ -no Did you speak to anyone other than the patient for history (EMS, parent, family, police, friend...)? What history was obtained from this source @ -no Did you review nursing and triage notes (agree or disagree)? Why? @ -agree Are old charts reviewed (outside hosp., previous admission, EMS record, old EKG, old radiological studies, urgent care reports/EKG's, assisted records)? Report findings @ -yes Differential Diagnosis (chest pain, altered mental status, abdominal pain women, abdominal pain men, vaginal bleeding, weakness, fever, dyspnea, syncope, headache, dizziness, GI bleed, back pain, seizure, CVA, palpatations, mental health, musculoskeletal)? @ -prior EKG interpreted by me (3pts min.). @ -no X-rays interpreted by me (1pt min.). @ -no CT interpreted by me (1pt min.). @ -no U/S interpreted by me (1pt. min.). @ -no What testing was considered but not performed or refused? (CT, X-rays, U/S, labs)? Why? @ -none What meds were considered but not given or refused? Why? @ -none Did you discuss the management of the patient with other professionals (professionals i.e. SEAN Cordova, GAS APPLIANCE SERVICER HELPER, lab, RT, psych nurse, social media analyst, drill press set up operator, teacher, chief quality officer, pillowcase cutter)? Give summary @ -no Was smoking cessation discussed for >3mins.? @ -no Was critical care preformed (if so, how long)? @ -no Were there social determinants of health that impacted care today? How? (Homelessness, low income, unemployed, alcoholism, drug addiction, transportation, low edu. Level, literacy, decrease access to med. care, [facility], rehab)? @ -none Was there de-escalation of care discussed even if they declined (Discuss DNR or withdrawal of care, Hospice)? DNR status @ -no What co-morbidities impacted this encounter? (DM, HTN, Smoking, COPD, CAD, Cancer, CVA, ARF, Chemo, Hep., AIDS, mental health diagnosis, sleep apnea, morbid obesity)? @ -none Was patient admitted / discharged? Hospital course, mention meds given and route, prescriptions, significant lab abnormalities, going to OR and other pertinent info. @ - 53 male to be discharged for reevaluation here in the emergency department of persistent symptoms, patient is complaining of body aches and pains Discharge Undiagnosed new problem with uncertain prognosis? @ -no Drug Therapy requiring intensive monitoring for toxicity (Heparin, Nitro, Insulin, Cardizem)? @ -no Were any procedures done? @ -no Diagnosis/symptom? @ -Myalgias Acute, or Chronic, or Acute on Chronic? @ -Acute Uncomplicated (without systemic symptoms) or Complicated (systemic symptoms)? @ -Complicated Side effects of treatment? @ -no Exacerbation, Progression, or Severe Exacerbation? @ -exacerbation Poses a threat to life or bodily function? How? (Chest pain, [place], [place], pneumonia, PE, COPD, DKA, ARF, appy, cholecystitis, CVA, Diverticulitis, Homicidal, Suicidal, threat to staff... and all critical care pts) @ -no Medical Decision Making - Medical Decision Making 53 male to be discharged for reevaluation here in the emergency department of persistent symptoms, patient is complaining of body aches and pains Disposition Clinical Impression: Chest pain Disposition: HOME SELF-CARE Condition: Fair Instructions (If sedation given, give patient instructions): Chest Pain (ED) Is patient prescribed a controlled substance at d/c from ED?: No Referrals: Catherine Narayan MD [Primary Care Provider] - 1-2 days Time of Disposition: 19:50
[2024-03-18 20:14] VITALS: BP 144/79; PULSE 77; TEMP 98
== END 2024-03-18 20:15 | disposition home or self-care (01) ==
LOC: EC 19:27
DX: R07.89 Other chest pain (principal)
CPT/HCPCS: 99284

== ENCOUNTER 2024-03-19 08:22 | Emergency (ER) | payer MEDICARE, OTHER ==
[2024-03-19 08:28] VITALS: BP 118/73; PULSE 67; RESP 18; TEMP 98.1
--- NOTE | 2024-03-19 08:51 | ED ---
General Adult HPI - General Chief complaint: Abdominal Pain Stated complaint: abd pain Time Seen by Provider: 03/19/24 08:29 Source: patient, RN notes reviewed Mode of arrival: ambulatory Limitations: no limitations - History of Present Illness Initial comments: 53 year old male presents to the emergency department with diffuse abdominal and chest pain for one week. He denies aggravating and attenuating factors. He denies shortness of breath and palpitations. Patient has had multiple ER visits for similar complaints patient's had recent negative workups. Patient denies any new symptoms denies urinary frequency dysuria - Related Data Home Medications Medication Instructions Recorded Confirmed Nitroglycerin Sl Tabs [Nitrostat] 0.4 mg SL Q5M PRN 08/20/23 03/04/24 Insulin Glargine,Hum.rec.anlog 15 units SQ HS 12/06/23 03/04/24 [Lantus Solostar Pen] Albuterol Inhaler [Ventolin Hfa 1 - 2 puff INHALATION RT-Q6H PRN 02/25/24 03/04/24 Inhaler] Albuterol Nebulized [Ventolin 2.5 mg INHALATION RT-QID PRN 02/25/24 03/04/24 Nebulized] Empagliflozin [Jardiance] 25 mg PO DAILY 02/25/24 03/04/24 Lidocaine 5% Patch [Lidoderm 5% 1 patch TRANSDERM DAILY 02/25/24 03/04/24 Patch] Omeprazole 40 mg PO DAILY 02/25/24 03/04/24 Tamsulosin [Flomax] 0.4 mg PO BID 02/25/24 03/04/24 amLODIPine [Norvasc] 10 mg PO DAILY 02/25/24 03/04/24 hydrOXYzine pamoate [Vistaril] 50 mg PO HS PRN 02/25/24 03/04/24 Benzonatate [Tessalon Perles] 100 mg PO TID PRN 02/27/24 03/04/24 Hyoscyamine Sulfate [Levsin-Sl] 0.125 mg SL QID PRN 02/27/24 03/04/24 hydrOXYzine pamoate [Vistaril] 25 mg PO BID 03/04/24 03/04/24 Previous Rx's Medication Instructions Recorded ARIPiprazole [Abilify] 15 mg PO DAILY 30 Days #30 tab 12/13/23 Aspirin EC [Ecotrin Low Dose] 81 mg PO DAILY 30 Days #30 tab 12/13/23 Atorvastatin [Lipitor] 10 mg PO HS 30 Days #30 tab 12/13/23 Budesonide-Formot 160-4.5 Mcg 2 puff INHALATION RT-BID 30 Days 12/13/23 [Symbicort 160-4.5 Mcg Inhaler] #1 each Cholecalciferol (Vitamin D3) 50 mcg PO DAILY 30 Days #30 tab 12/13/23 [Vitamin D3 (50 Mcg = 2000 Iu)] Famotidine [Pepcid] 20 mg PO BID PRN 30 Days #60 tab 12/13/23 Ipratropium-Albuterol Nebulize 3 ml INHALATION RT-QID PRN 30 Days 12/13/23 [Duoneb 0.5 mg-3 mg/3 ml Soln] #1 each Montelukast [Singulair] 10 mg PO HS 30 Days #30 tab 12/13/23 Sertraline [Zoloft] 100 mg PO HS 30 Days #30 tab 12/13/23 Ondansetron Odt [Zofran ODT] 4 mg PO Q8HR PRN #10 tab 01/04/24 traZODone HCL [Desyrel] 100 mg PO HS tab 02/22/24 Prochlorperazine [Compazine] 10 mg PO Q6H #15 tab 03/19/24 Allergies Allergy/AdvReac Type Severity Reaction Status Date / Time dicyclomine HCl [From Bentyl] Allergy Unknown Dyspnea Verified 03/20/24 13:12 latex Allergy Unknown Rash/Hives Verified 03/20/24 13:12 Benzoate Analogues Allergy Unknown Verified 03/20/24 13:12 nitrofurantoin Allergy Nausea Verified 03/20/24 13:12 [From Macrobid] Penicillins Allergy "[place] Verified 03/20/24 13:12 funny" adhesive AdvReac Unknown Itching Verified 03/20/24 13:12 ciprofloxacin AdvReac Unknown Nausea Verified 03/20/24 13:12 Macrolide Antibiotics AdvReac Unknown Nausea Verified 03/20/24 13:12 sulfamethoxazole AdvReac Unknown Unknown Verified 03/20/24 13:12 [From Bactrim] trimethoprim [From Bactrim] AdvReac Unknown Unknown Verified 03/20/24 13:12 diphenhydramine AdvReac Confusion Verified 03/20/24 13:12 [From Benadryl] Review of Systems ROS Statement: Those systems with pertinent positive or pertinent negative responses have been documented in the HPI. ROS Other: All systems not noted in ROS Statement are negative. Past Medical History Past Medical History: Asthma, Chest Pain / Angina, COPD, CVA/TIA, Diabetes Mellitus, GERD/Reflux, Hearing Disorder / Deafness, Hyperlipidemia, Hypertension, Liver Disease, Osteoarthritis (OA), Pneumonia, Seizure Disorder, Sleep Apnea/CPAP/BIPAP Additional Past Medical History / Comment(s): states CVA at 35 yrs old, no weakness @ this time. states seizure at 35 yrs old., DDD- back & neck pain., carpal tunnel syndrome. Has [employer] public guardian. History of Any Multi-Drug Resistant Organisms: None Reported Past Surgical History: Heart Catheterization, Orthopedic Surgery Additional Past Surgical History / Comment(s): Cysts removed, left thumb surgery, colonoscopy 08/24/2019. Skin tags removed from both eyes. Past Anesthesia/Blood Transfusion Reactions: Unable to Obtain, Motion Sickness, Postoperative Nausea & Vomiting (PONV) Past Psychological History: Anxiety, Bipolar, Depression, Schizophrenia Smoking Status: Current every day smoker Past Alcohol Use History: None Reported Past Drug Use History: None Reported - Past Family History Brother(s) Family Medical History: Diabetes Mellitus Additional Family Medical History / Comment(s): Patient has 2 brothers. One d from complications from diabetes. The second is alive with diabetes. Sister(s) Family Medical History: Cancer Additional Family Medical History / Comment(s): Patient has one sister with breast cancer. Patient does not have any children. Father Family Medical History: Cancer Additional Family Medical History / Comment(s): Father in his 40s or 50s from colon cancer. Mother Family Medical History: Cancer Additional Family Medical History / Comment(s): Mother at age 68 from lung cancer. General Exam Limitations: no limitations General appearance: alert, in no apparent distress Head exam: Present: atraumatic, normocephalic, normal inspection Eye exam: Present: normal appearance, PERRL, EOMI. Absent: scleral icterus, conjunctival injection, periorbital swelling ENT exam: Present: normal exam, mucous membranes moist Neck exam: Present: normal inspection. Absent: tenderness, meningismus, lymphadenopathy Respiratory exam: Present: normal lung sounds bilaterally. Absent: respiratory distress, wheezes, rales, rhonchi, stridor Cardiovascular Exam: Present: regular rate, normal rhythm, normal heart sounds. Absent: systolic murmur, diastolic murmur, rubs, gallop, clicks GI/Abdominal exam: Present: soft, normal bowel sounds. Absent: distended, tenderness, guarding, rebound, rigid Extremities exam: Present: normal inspection, full ROM, normal capillary refill. Absent: tenderness, pedal edema, joint swelling, calf tenderness Back exam: Present: normal inspection Neurological exam: Present: alert, oriented X3, CN II-XII intact Psychiatric exam: Present: normal affect, normal mood Skin exam: Present: warm, dry, intact, normal color. Absent: rash Course Vital Signs 03/19/24 08:24 Temperature 98.1 F Pulse Rate 67 Respiratory 18 Rate Blood Pressure 118/73 O2 Sat by Pulse 97 Oximetry EKG Findings - EKG Comments: EKG Findings:: EKG performed at 8: 37 sinus bradycardia with a rate of 58 CA 154 QRS 109 QT/QTc 439/429 - EKG Results: EKG: interpreted by [facility] Medical Decision Making - Medical Decision Making Was pt. sent in by a medical professional or institution (, PA, FLOWER MACHINE OPERATOR, urgent care, hospital, or half-way...) When possible be specific @ -No Did you speak to anyone other than the patient for history (EMS, parent, family, police, friend...)? What history was obtained from this source @ -No Did you review nursing and triage notes (agree or disagree)? Why? @ -I reviewed and agree with nursing and triage notes Were old charts reviewed (outside hosp., previous admission, EMS record, old EKG, old radiological studies, urgent care reports/EKG's, half-way records)? Report findings @ -Reviewed prior CBC, EKG Differential Diagnosis (chest pain, altered mental status, abdominal pain women, abdominal pain men, vaginal bleeding, weakness, fever, dyspnea, syncope, headache, dizziness, GI bleed, back pain, seizure, CVA, palpatations, mental health, musculoskeletal)? @ -[Differential Abdominal Pain Men: Appendicitis, cholecystitis, diverticulosis, ischemic bowel, pancreatitis, hepatitis, UTI, gastroenteritis, AAA, incarcerated hernia, bowel obstruction, constipation, inflammatory bowel, hepatitis, peptic ulcer disease, splenic infarction, perforated viscus, testicular torsion, this is not meant to be an all-inclusive list EKG interpreted by me (3pts min.). @ -As above X-rays interpreted by me (1pt min.). @ -None done CT interpreted by me (1pt min.). @ -None done U/S interpreted by me (1pt. min.). @ -None done What testing was considered but not performed or refused? (CT, X-rays, U/S, labs)? Why? @ -Considered labs, imaging feel this is a recurrent chronic issue without acute symptoms today. What meds were considered but not given or refused? Why? @ -None Did you discuss the management of the patient with other professionals (professionals i.e. , PA, FLOWER MACHINE OPERATOR, lab, RT, psych nurse, social services coordinator, sheet folder, teacher, property disposal officer, outpatient case manager)? Give summary @ -No Was smoking cessation discussed for >3mins.? @ -No Was critical care preformed (if so, how long)? @ -No Were there social determinants of health that impacted care today? How? (Homelessness, low income, unemployed, alcoholism, drug addiction, transportation, low edu. Level, literacy, decrease access to med. care, halfway, rehab)? @ -No Was there de-escalation of care discussed even if they declined (Discuss DNR or withdrawal of care, Hospice)? DNR status @ -No What co-morbidities impacted this encounter? (DM, HTN, Smoking, COPD, CAD, Cancer, CVA, ARF, Chemo, Hep., AIDS, mental health diagnosis, sleep apnea, morbid obesity)? @ -[Chronic abdominal pain, diabetes, CAD Was patient admitted / discharged? Hospital course, mention meds given and route, prescriptions, significant lab abnormalities, going to OR and other pertinent info. @ -Discharge patient presented for complaints of nausea patient has chronic abdo nate, chest symptoms there are no acute symptoms today. Patient is discharged after antiemetics with prescription for Compazine. Undiagnosed new problem with uncertain prognosis? @ -No Drug Therapy requiring intensive monitoring for toxicity (Heparin, Nitro, Insulin, Cardizem)? @ -No Were any procedures done? @ -No Diagnosis/symptom? @ -Chronic nausea and abdominal pain Acute, or Chronic, or Acute on Chronic? @ -Chronic Uncomplicated (without systemic symptoms) or Complicated (systemic symptoms)? @ -Uncomplicated Side effects of treatment? @ -No Exacerbation, Progression, or Severe Exacerbation? @ -No Poses a threat to life or bodily function? How? (Chest pain, [place], [place], pneumonia, PE, COPD, DKA, ARF, appy, cholecystitis, CVA, Diverticulitis, Homicidal, Suicidal, threat to staff... and all critical care pts) @ -No Disposition Clinical Impression: Chronic nausea, Chronic abdominal pain Disposition: HOME SELF-CARE Condition: Stable Instructions (If sedation given, give patient instructions): Abdominal Pain (ED) Additional Instructions: Please follow-up with your PCP and GI as directed. Please return to the Emergency Department if symptoms worsen or any other concerns. Prescriptions: Prochlorperazine [Compazine] 10 mg PO Q6H #15 tab Is patient prescribed a controlled substance at d/c from ED?: No Referrals: Catherine Narayan MD [Primary Care Provider] - 1-2 days Carissa Gonzalez MD [STAFF PHYSICIAN] - 1-2 days Time of Disposition: 08:50
[2024-03-19] MEDS: METOCLOPRAMIDE 5 MG/ML 2 ML VIAL IM STA (08:57)
[2024-03-19] MEDS: KETOROLAC 15 MG/ML 1 ML VIAL IM STA (08:59)
== END 2024-03-19 09:10 | disposition home or self-care (01) ==
LOC: EC 08:22
CPT/HCPCS: 93005; 96372; 99284

== ENCOUNTER 2024-03-19 13:42 | Emergency (ER) | payer MEDICARE, OTHER ==
[2024-03-19 14:00] VITALS: RESP 18; TEMP 98
[2024-03-19 15:24] LABS: Amphetamine Screen,Urine Not Detected (NotDetected); Barbiturate Screen,Urine Not Detected (NotDetected); Benzodiazepines Screen,Urine Not Detected (NotDetected); Cocaine Screen,Urine Not Detected (NotDetected); Methadone Screen, Urine Not Detected (NotDetected); Opiate Screen,Urine Detected (NotDetected); Oxycodone Screen, Urine Not Detected (NotDetected); Phencyclidine Screen,Urine Not Detected (NotDetected); Tricyclic Antidepressant,Urine Not Detected (NotDetected); Urn Cannabinoid Scrn Not Detected (NotDetected)
--- NOTE | 2024-03-19 15:41 | ED ---
Psych HPI - General Chief Complaint: Psychiatric Symptoms Stated Complaint: mental health Time Seen by Provider: 03/19/24 13:47 Source: patient, RN notes reviewed, old records reviewed Mode of arrival: ambulatory Limitations: no limitations - History of Present Illness Initial Comments: 53-year-old male presents emergency department chief complaint of depression, suicide patient. Patient states he does not like where he lives so this is making his symptoms worse. Patient denies any self-harm or plan to harm self at this time. Patient denies any illicit drug use no alcohol abuse. Patient had multiple ER visits for different complaints over the last several days. Patient denies any change in medications he states his medications are not helping him. - Related Data Home Medications Medication Instructions Recorded Confirmed Nitroglycerin Sl Tabs [Nitrostat] 0.4 mg SL Q5M PRN 08/20/23 03/04/24 Insulin Glargine,Hum.rec.anlog 15 units SQ HS 12/06/23 03/04/24 [Lantus Solostar Pen] Albuterol Inhaler [Ventolin Hfa 1 - 2 puff INHALATION RT-Q6H PRN 02/25/24 03/04/24 Inhaler] Albuterol Nebulized [Ventolin 2.5 mg INHALATION RT-QID PRN 02/25/24 03/04/24 Nebulized] Empagliflozin [Jardiance] 25 mg PO DAILY 02/25/24 03/04/24 Lidocaine 5% Patch [Lidoderm 5% 1 patch TRANSDERM DAILY 02/25/24 03/04/24 Patch] Omeprazole 40 mg PO DAILY 02/25/24 03/04/24 Tamsulosin [Flomax] 0.4 mg PO BID 02/25/24 03/04/24 amLODIPine [Norvasc] 10 mg PO DAILY 02/25/24 03/04/24 hydrOXYzine pamoate [Vistaril] 50 mg PO HS PRN 02/25/24 03/04/24 Benzonatate [Tessalon Perles] 100 mg PO TID PRN 02/27/24 03/04/24 Hyoscyamine Sulfate [Levsin-Sl] 0.125 mg SL QID PRN 02/27/24 03/04/24 hydrOXYzine pamoate [Vistaril] 25 mg PO BID 03/04/24 03/04/24 Previous Rx's Medication Instructions Recorded ARIPiprazole [Abilify] 15 mg PO DAILY 30 Days #30 tab 12/13/23 Aspirin EC [Ecotrin Low Dose] 81 mg PO DAILY 30 Days #30 tab 12/13/23 Atorvastatin [Lipitor] 10 mg PO HS 30 Days #30 tab 12/13/23 Budesonide-Formot 160-4.5 Mcg 2 puff INHALATION RT-BID 30 Days 12/13/23 [Symbicort 160-4.5 Mcg Inhaler] #1 each Cholecalciferol (Vitamin D3) 50 mcg PO DAILY 30 Days #30 tab 12/13/23 [Vitamin D3 (50 Mcg = 2000 Iu)] Famotidine [Pepcid] 20 mg PO BID PRN 30 Days #60 tab 12/13/23 Ipratropium-Albuterol Nebulize 3 ml INHALATION RT-QID PRN 30 Days 12/13/23 [Duoneb 0.5 mg-3 mg/3 ml Soln] #1 each Montelukast [Singulair] 10 mg PO HS 30 Days #30 tab 12/13/23 Sertraline [Zoloft] 100 mg PO HS 30 Days #30 tab 12/13/23 Ondansetron Odt [Zofran ODT] 4 mg PO Q8HR PRN #10 tab 01/04/24 traZODone HCL [Desyrel] 100 mg PO HS tab 02/22/24 Prochlorperazine [Compazine] 10 mg PO Q6H #15 tab 03/19/24 Allergies Allergy/AdvReac Type Severity Reaction Status Date / Time dicyclomine HCl [From Bentyl] Allergy Unknown Dyspnea Verified 03/20/24 13:12 latex Allergy Unknown Rash/Hives Verified 03/20/24 13:12 Benzoate Analogues Allergy Unknown Verified 03/20/24 13:12 nitrofurantoin Allergy Nausea Verified 03/20/24 13:12 [From Macrobid] Penicillins Allergy "[place] Verified 03/20/24 13:12 funny" adhesive AdvReac Unknown Itching Verified 03/20/24 13:12 ciprofloxacin AdvReac Unknown Nausea Verified 03/20/24 13:12 Macrolide Antibiotics AdvReac Unknown Nausea Verified 03/20/24 13:12 sulfamethoxazole AdvReac Unknown Unknown Verified 03/20/24 13:12 [From Bactrim] trimethoprim [From Bactrim] AdvReac Unknown Unknown Verified 03/20/24 13:12 diphenhydramine AdvReac Confusion Verified 03/20/24 13:12 [From Benadryl] Review of Systems ROS Statement: Those systems with pertinent positive or pertinent negative responses have been documented in the HPI. ROS Other: All systems not noted in ROS Statement are negative. Past Medical History Past Medical History: Asthma, Chest Pain / Angina, COPD, CVA/TIA, Diabetes Mellitus, GERD/Reflux, Hearing Disorder / Deafness, Hyperlipidemia, Hyp ertension, Liver Disease, Osteoarthritis (OA), Pneumonia, Seizure Disorder, Sleep Apnea/CPAP/BIPAP Additional Past Medical History / Comment(s): states CVA at 35 yrs old, no w eakness @ this time. states seizure at 35 yrs old., DDD- back & neck pain., carpal tunnel syndrome. Has [employer] public guardian. History of Any Multi-Drug Resistant Organisms: None Reported Past Surgical History: Heart Catheterization, Orthopedic Surgery Additional Past Surgical History / Comment(s): Cysts removed, left thumb surgery, colonoscopy 08/24/2019. Skin tags removed from both eyes. Past Anesthesia/Blood Transfusion Reactions: Unable to Obtain, Motion Sickness, Postoperative Nausea & Vomiting (PONV) Past Psychological History: Anxiety, Bipolar, Depression, Schizophrenia Smoking Status: Current every day smoker Past Alcohol Use History: None Reported Past Drug Use History: None Reported - Past Family History Brother(s) Family Medical History: Diabetes Mellitus Additional Family Medical History / Comment(s): Patient has 2 brothers. One from complications from diabetes. The second is alive with diabetes. Sister(s) Family Medical History: Cancer Additional Family Medical History / Comment(s): Patient has one sister with breast cancer. Patient does not have any children. Father Family Medical History: Cancer Additional Family Medical History / Comment(s): Father in his 40s or 50s from colon cancer. Mother Family Medical History: Cancer Additional Family Medical History / Comment(s): Mother at age 68 from lung cancer. General Exam Limitations: no limitations General appearance: alert, in no apparent distress Head exam: Present: atraumatic, normocephalic, normal inspection Eye exam: Present: normal appearance, PERRL, EOMI. Absent: scleral icterus, conjunctival injection, periorbital swelling Respiratory exam: Present: normal lung sounds bilaterally. Absent: respiratory distress, wheezes, rales, rhonchi, stridor Cardiovascular Exam: Present: regular rate, normal rhythm, normal heart sounds. Absent: systolic murmur, diastolic murmur, rubs, gallop, clicks Neurological exam: Present: alert Skin exam: Present: warm, dry, intact, normal color. Absent: rash Course Vital Signs 03/19/24 03/19/24 13:56 17:25 Temperature 98.0 F Pulse Rate 66 61 Respiratory 18 18 Rate Blood Pressure 122/81 152/93 O2 Sat by Pulse 97 99 Oximetry Medical Decision Making - Medical Decision Making Was pt. sent in by a medical professional or institution (, PA, METALLURGICAL ENGINEERING TECHNICIAN, urgent care, hospital, or long-term...) When possible be specific @ -No Did you speak to anyone other than the patient for history (EMS, parent, family, police, friend...)? What history was obtained from this source @ -No Did you review nursing and triage notes (agree or disagree)? Why? @ -I reviewed and agree with nursing and triage notes Were old charts reviewed (outside hosp., previous admission, EMS record, old EKG, old radiological studies, urgent care reports/EKG's, long-term records)? Report findings @ -No old charts were reviewed Differential Diagnosis (chest pain, altered mental status, abdominal pain women, abdominal pain men, vaginal bleeding, weakness, fever, dyspnea, syncope, headache, dizziness, GI bleed, back pain, seizure, CVA, palpatations, mental health, musculoskeletal)? @ -Differential Mental Health Depression, anxiety, bipolar, psychosis, schizophrenia, borderline personality, situational depression, adjustment disorder, behavioral disorder, brain tumor, malingering, substance abuse, encephalopathy, medication reaction, dementia, hypothyroidism, degenerative neurologic disorder, lupus.... This is not meant to be all-inclusive list EKG interpreted by me (3pts min.). @ -None X-rays interpreted by me (1pt min.). @ -None done CT interpreted by me (1pt min.). @ -None done U/S interpreted by me (1pt. min.). @ -None done What testing was considered but not performed or refused? (CT, X-rays, U/S, labs)? Why? @ -None What meds were considered but not given or refused? Why? @ -None Did you discuss the management of the patient with other professionals (professionals i.e. , PA, METALLURGICAL ENGINEERING TECHNICIAN, lab, RT, psych nurse, social worker psychiatric, warp spooler, teacher, army officer, case management associate)? Give summary @ -EPS evaluated patient recommended outpatient treatment Was smoking cessation discussed for >3mins.? @ -No Was critical care preformed (if so, how long)? @ -No Were there social determinants of health that impacted care today? How? (Homelessness, low income, unemployed, alcoholism, drug addiction, transportation, low edu. Level, literacy, decrease access to med. care, intermediate, rehab)? @ -No Was there de-escalation of care discussed even if they declined (Discuss DNR or withdrawal of care, Hospice)? DNR status @ -No What co-morbidities impacted this encounter? (DM, HTN, Smoking, COPD, CAD, Cancer, CVA, ARF, Chemo, Hep., AIDS, mental health diagnosis, sleep apnea, morbid obesity)? @ -None Was patient admitted / discharged? Hospital course, mention meds given and route, prescriptions, significant lab abnormalities, going to OR and other pertinent info. @ -Discharge after evaluation of EPS to outpatient treatment and safety plan Undiagnosed new problem with uncertain prognosis? @ -No Drug Therapy requiring intensive monitoring for toxicity (Heparin, Nitro, Insulin, Cardizem)? @ -No Were any procedures done? @ -No Diagnosis/symptom? @ -Depression Acute, or Chronic, or Acute on Chronic? @ -Acute Uncomplicated (without systemic symptoms) or Complicated (systemic symptoms)? @ -Uncomplicated Side effects of treatment? @ -No Exacerbation, Progression, or Severe Exacerbation? @ -No Poses a threat to life or bodily function? How? (Chest pain, [place], [place], pneumonia, PE, COPD, DKA, ARF, appy, cholecystitis, CVA, Diverticulitis, Homicidal, Suicidal, threat to staff... and all critical care pts) @ -No - Lab Data Lab Results 03/19/24 Range/Units 14:00 Urine Opiates Screen Detected H (NotDetected) Ur Oxycodone Screen Not Detected (NotDetected) Urine Methadone Screen Not Detected (NotDetected) Ur Barbiturates Screen Not Detected (NotDetected) U Tricyclic Antidepress Not Detected (NotDetected) Ur Phencyclidine Scrn Not Detected (NotDetected) Ur Amphetamines Screen Not Detected (NotDetected) U Methamphetamines Scrn Not Detected (NotDetected) U Benzodiazepines Scrn Not Detected (NotDetected) Urine Cocaine Screen Not Detected (NotDetected) U Marijuana (THC) Screen Not Detected (NotDetected) Disposition Clinical Impression: Depression Disposition: HOME SELF-CARE Condition: Stable Additional Instructions: Please return to the Emergency Department if symptoms worsen or any other concerns. Is patient prescribed a controlled substance at d/c from ED?: No Referrals: Catherine Narayan MD [Primary Care Provider] - 1-2 days Time of Disposition: 16:51
[2024-03-19 17:27] VITALS: BP 152/93; PULSE 61
== END 2024-03-19 17:27 | disposition home or self-care (01) ==
LOC: EC 13:42
CPT/HCPCS: 80306; 82075; 99284

== ENCOUNTER 2024-03-22 15:30 | Emergency (ER) | payer MEDICARE, OTHER ==
[2024-03-22 16:04] VITALS: BP 125/77; PULSE 71; RESP 20; TEMP 98.2
--- NOTE | 2024-03-22 16:19 | ED ---
Chest Pain HPI - General Chief Complaint: Chest Pain Stated Complaint: chest pain Time Seen by Provider: 03/22/24 16:12 Source: patient, RN notes reviewed, old records reviewed Mode of arrival: ambulatory Limitations: no limitations - History of Present Illness Initial Comments: This is a 54-year-old male with chest pain. Patient is well-known to our e mergency room for chest pain at this point patient has no symptoms no complaints of chest pain is stating that his blood pressure is high his blood pressure on check as arrival to the ER is normal MD Complaint: chest pain -: days(s) Onset: during rest, during exertion Pain Location: substernal, left chest Pain Radiation: none Severity: moderate Severity scale (1-10): 4 Quality: tightness Consistency: constant Improves With: nothing Worsens With: nothing Anginal Symptoms: sense of impending doom Other Symptoms: palpitations Treatments Prior to Arrival: none - Related Data Home Medications Medication Instructions Recorded Confirmed Nitroglycerin Sl Tabs [Nitrostat] 0.4 mg SL Q5M PRN 08/20/23 03/04/24 Insulin Glargine,Hum.rec.anlog 15 units SQ HS 12/06/23 03/04/24 [Lantus Solostar Pen] Albuterol Inhaler [Ventolin Hfa 1 - 2 puff INHALATION RT-Q6H PRN 02/25/24 03/04/24 Inhaler] Albuterol Nebulized [Ventolin 2.5 mg INHALATION RT-QID PRN 02/25/24 03/04/24 Nebulized] Empagliflozin [Jardiance] 25 mg PO DAILY 02/25/24 03/04/24 Lidocaine 5% Patch [Lidoderm 5% 1 patch TRANSDERM DAILY 02/25/24 03/04/24 Patch] Omeprazole 40 mg PO DAILY 02/25/24 03/04/24 Tamsulosin [Flomax] 0.4 mg PO BID 02/25/24 03/04/24 amLODIPine [Norvasc] 10 mg PO DAILY 02/25/24 03/04/24 hydrOXYzine pamoate [Vistaril] 50 mg PO HS PRN 02/25/24 03/04/24 Benzonatate [Tessalon Perles] 100 mg PO TID PRN 02/27/24 03/04/24 Hyoscyamine Sulfate [Levsin-Sl] 0.125 mg SL QID PRN 02/27/24 03/04/24 hydrOXYzine pamoate [Vistaril] 25 mg PO BID 03/04/24 03/04/24 Previous Rx's Medication Instructions Recorded ARIPiprazole [Abilify] 15 mg PO DAILY 30 Days #30 tab 12/13/23 Aspirin EC [Ecotrin Low Dose] 81 mg PO DAILY 30 Days #30 tab 12/13/23 Atorvastatin [Lipitor] 10 mg PO HS 30 Days #30 tab 12/13/23 Budesonide-Formot 160-4.5 Mcg 2 puff INHALATION RT-BID 30 Days 12/13/23 [Symbicort 160-4.5 Mcg Inhaler] #1 each Cholecalciferol (Vitamin D3) 50 mcg PO DAILY 30 Days #30 tab 12/13/23 [Vitamin D3 (50 Mcg = 2000 Iu)] Famotidine [Pepcid] 20 mg PO BID PRN 30 Days #60 tab 12/13/23 Ipratropium-Albuterol Nebulize 3 ml INHALATION RT-QID PRN 30 Days 12/13/23 [Duoneb 0.5 mg-3 mg/3 ml Soln] #1 each Montelukast [Singulair] 10 mg PO HS 30 Days #30 tab 12/13/23 Sertraline [Zoloft] 100 mg PO HS 30 Days #30 tab 12/13/23 Ondansetron Odt [Zofran ODT] 4 mg PO Q8HR PRN #10 tab 01/04/24 traZODone HCL [Desyrel] 100 mg PO HS tab 02/22/24 Prochlorperazine [Compazine] 10 mg PO Q6H #15 tab 03/19/24 Allergies Allergy/AdvReac Type Severity Reaction Status Date / Time dicyclomine HCl [From Bentyl] Allergy Unknown Dyspnea Verified 03/30/24 00:36 latex Allergy Unknown Rash/Hives Verified 03/30/24 00:36 Benzoate Analogues Allergy Unknown Verified 03/30/24 00:36 nitrofurantoin Allergy Nausea Verified 03/30/24 00:36 [From Macrobid] Penicillins Allergy "[place] Verified 03/30/24 00:36 funny" adhesive AdvReac Unknown Itching Verified 03/30/24 00:36 ciprofloxacin AdvReac Unknown Nausea Verified 03/30/24 00:36 Macrolide Antibiotics AdvReac Unknown Nausea Verified 03/30/24 00:36 sulfamethoxazole AdvReac Unknown Unknown Verified 03/30/24 00:36 [From Bactrim] trimethoprim [From Bactrim] AdvReac Unknown Unknown Verified 03/30/24 00:36 diphenhydramine AdvReac Confusion Verified 03/30/24 00:36 [From Benadryl] Review of Systems ROS Statement: Those systems with pertinent positive or pertinent negative responses have been documented in the HPI. ROS Other: All systems not noted in ROS Statement are negative. EKG Findings - EKG Comments: EKG Findings:: EKG is sinus bradycardia 59 MN 146 QRS 109 QTc 424 - EKG Results: EKG: interpreted by [facility] Past Medical History Past Medical History: Asthma, Chest Pain / Angina, COPD, CVA/TIA, Diabetes Mellitus, GERD/Reflux, Hearing Disorder / Deafness, Hyperlipidemia, Hypertension, Liver Disease, Osteoarthritis (OA), Pneumonia, Seizure Disorder, Sleep Apnea/CPAP/BIPAP Additional Past Medical History / Comment(s): states CVA at 35 yrs old, no weakness @ this time. states seizure at 35 yrs old., DDD- back & neck pain., carpal tunnel syndrome. Has [employer] public guardian. History of Any Multi-Drug Resistant Organisms: None Reported Past Surgical History: Heart Catheterization, Orthopedic Surgery Additional Past Surgical History / Comment(s): Cysts removed, left thumb surgery, colonoscopy 08/24/2019. Skin tags removed from both eyes. Past Anesthesia/Blood Transfusion Reactions: Unable to Obtain, Motion Sickness, Postoperative Nausea & Vomiting (PONV) Past Psychological History: Anxiety, Bipolar, Depression, Schizophrenia Smoking Status: Current every day smoker Past Alcohol Use History: None Reported Past Drug Use History: None Reported - Past Family History Brother(s) Family Medical History: Diabetes Mellitus Additional Family Medical History / Comment(s): Patient has 2 brothers. One from complications from diabetes. The second is alive with diabetes. Sister(s) Family Medical History: Cancer Additional Family Medical History / Comment(s): Patient has one sister with breast cancer. Patient does not have any children. Father Family Medical History: Cancer Additional Family Medical History / Comment(s): Father in his 40s or 50s from colon cancer. Mother Family Medical History: Cancer Additional Family Medical History / Comment(s): Mother at age 68 from lung cancer. General Exam Limitations: no limitations General appearance: alert, in no apparent distress Head exam: Present: atraumatic, normocephalic, normal inspection Eye exam: Present: normal appearance, PERRL, EOMI. Absent: scleral icterus, conjunctival injection, periorbital swelling ENT exam: Present: normal exam, mucous membranes moist Neck exam: Present: normal inspection. Absent: tenderness, meningismus, lymphadenopathy Respiratory exam: Present: normal lung sounds bilaterally. Absent: respiratory distress, wheezes, rales, rhonchi, stridor Cardiovascular Exam: Present: regular rate, normal rhythm, normal heart sounds. Absent: systolic murmur, diastolic murmur, rubs, gallop, clicks GI/Abdominal exam: Present: soft, normal bowel sounds. Absent: distended, tenderness, guarding, rebound, rigid Extremities exam: Present: normal inspection, full ROM, normal capillary refill. Absent: tenderness, pedal edema, joint swelling, calf tenderness Back exam: Present: normal inspection Neurological exam: Present: alert, oriented X3, CN II-XII intact Psychiatric exam: Present: normal affect, normal mood Skin exam: Present: warm, dry, intact, normal color. Absent: rash Course Vital Signs 03/22/24 16:01 Temperature 98.2 F Pulse Rate 71 Respiratory 20 Rate Blood Pressure 125/77 O2 Sat by Pulse 98 Oximetry - Reevaluation(s) Reevaluation #1: Medical records reviewed Reevaluation #2: Patient symptoms resolved feels well Reevaluation #3: Patient informed of results questions answered Reevaluation #4: 03/30/24 19:30 Was pt. sent in by a medical professional or institution (, PA, HEEL EDGE INKER MACHINE, urgent care, hospital, or half-way...) When possible be specific @ -no Did you speak to anyone other than the patient for history (EMS, parent, family, police, friend...)? What history was obtained from this source @ -no Did you review nursing and triage notes (agree or disagree)? Why? @ -agree Are old charts reviewed (outside hosp., previous admission, EMS record, old EKG, old radiological studies, urgent care reports/EKG's, half-way records)? Report findings @ -yes Differential Diagnosis (chest pain, altered mental status, abdominal pain women, abdominal pain men, vaginal bleeding, weakness, fever, dyspnea, syncope, headache, dizziness, GI bleed, back pain, seizure, CVA, palpatations, mental health, musculoskeletal)? @ -prior EKG interpreted by me (3pts min.). @ -no X-rays interpreted by me (1pt min.). @ -no CT interpreted by me (1pt min.). @ -no U/S interpreted by me (1pt. min.). @ -no What testing was considered but not performed or refused? (CT, X-rays, U/S, labs)? Why? @ -none What meds were considered but not given or refused? Why? @ -none Did you discuss the management of the patient with other professionals (professionals i.e. , PA, HEEL EDGE INKER MACHINE, lab, RT, psych nurse, hospital social worker, specialty cook, teacher, dog license officer supervisor, block and case maker)? Give summary @ -no Was smoking cessation discussed for >3mins.? @ -no Was critical care preformed (if so, how long)? @ -no Were there social determinants of health that impacted care today? How? (Homelessness, low income, unemployed, alcoholism, drug addiction, transportation, low edu. Level, literacy, decrease access to med. care, care home, rehab)? @ -none Was there de-escalation of care discussed even if they declined (Discuss DNR or withdrawal of care, Hospice)? DNR status @ -no What co-morbidities impacted this encounter? (DM, HTN, Smoking, COPD, CAD, Cancer, CVA, ARF, Chemo, Hep., AIDS, mental health diagnosis, sleep apnea, morbid obesity)? @ -none Was patient admitted / discharged? Hospital course, mention meds given and route, prescriptions, significant lab abnormalities, going to OR and other pertinent info. @ -54 male with chest pain, well-known to this ER no testing is provided patient has no complaints and can be discharged home Undiagnosed new problem with uncertain prognosis? @ -no Drug Therapy requiring intensive monitoring for toxicity (Heparin, Nitro, Insulin, Cardizem)? @ -no Were any procedures done? @ -no Diagnosis/symptom? @ -Chest pain Acute, or Chronic, or Acute on Chronic? @ -Acute Uncomplicated (without systemic symptoms) or Complicated (systemic symptoms)? @ -Complicated Side effects of treatment? @ -no Exacerbation, Progression, or Severe Exacerbation? @ -exacerbation Poses a threat to life or bodily function? How? (Chest pain, [place], [place], pneumonia, PE, COPD, DKA, ARF, appy, cholecystitis, CVA, Diverticulitis, Homicidal, Suicidal, threat to staff... and all critical care pts) @ -yes Reevaluation #5: Differential Chest Pain: Stable Angina, Unstable Angina, STEMI, NSTEMI Aortic Dissection, Pneumothorax, Musculoskeletal, Esophageal Spasm GERD, Cholecystitis, Pancreatitis, Zoster, this is not meant to be an all-inclusive list. Chest Pain MDM - MDM 54 male with chest pain, patient has no acute findings here in the ER no complaints patient can be discharged home Disposition Clinical Impression: Chest pain Disposition: HOME SELF-CARE Condition: Fair Instructions (If sedation given, give patient instructions): Chest Pain (ED) Is patient prescribed a controlled substance at d/c from ED?: No Referrals: Catherine Narayan MD [Primary Care Provider] - 1-2 days Time of Disposition: 16:10
== END 2024-03-22 18:34 | disposition home or self-care (01) ==
LOC: EC 15:30
CPT/HCPCS: 93005; 99285

== ENCOUNTER 2024-03-30 00:33 | Emergency (ER) | payer MEDICARE, OTHER ==
--- NOTE | 2024-03-30 02:02 | ED ---
General Adult HPI - General Chief complaint: Headache Stated complaint: headache Time Seen by Provider: 03/30/24 01:31 Source: patient Mode of arrival: ambulatory Limitations: no limitations - History of Present Illness Initial comments: 54-year-old male well-known to our ER presenting with multiple complaints. Patient is complaining of migraine headache, neck pain, and rib pain. Patient has history of migraine headaches states that this feels typical with the headaches he has had in the past. Feels like a bandlike sensation around the head. He is also has chronic neck pain, states he has had neck pain for years. It is little worse than usual today denies any injury or trauma. Admits to bilateral rib pain. No injuries. No difficulty breathing or centralized chest pain. He is not taking anything at home for pain. Feels a bit nauseous from his headache. his blood sugar is elevated at 261. - Related Data Home Medications Medication Instructions Recorded Confirmed Nitroglycerin Sl Tabs [Nitrostat] 0.4 mg SL Q5M PRN 08/20/23 03/04/24 Insulin Glargine,Hum.rec.anlog 15 units SQ HS 12/06/23 03/04/24 [Lantus Solostar Pen] Albuterol Inhaler [Ventolin Hfa 1 - 2 puff INHALATION RT-Q6H PRN 02/25/24 03/04/24 Inhaler] Albuterol Nebulized [Ventolin 2.5 mg INHALATION RT-QID PRN 02/25/24 03/04/24 Nebulized] Empagliflozin [Jardiance] 25 mg PO DAILY 02/25/24 03/04/24 Lidocaine 5% Patch [Lidoderm 5% 1 patch TRANSDERM DAILY 02/25/24 03/04/24 Patch] Omeprazole 40 mg PO DAILY 02/25/24 03/04/24 Tamsulosin [Flomax] 0.4 mg PO BID 02/25/24 03/04/24 amLODIPine [Norvasc] 10 mg PO DAILY 02/25/24 03/04/24 hydrOXYzine pamoate [Vistaril] 50 mg PO HS PRN 02/25/24 03/04/24 Benzonatate [Tessalon Perles] 100 mg PO TID PRN 02/27/24 03/04/24 Hyoscyamine Sulfate [Levsin-Sl] 0.125 mg SL QID PRN 02/27/24 03/04/24 hydrOXYzine pamoate [Vistaril] 25 mg PO BID 03/04/24 03/04/24 Previous Rx's Medication Instructions Recorded ARIPiprazole [Abilify] 15 mg PO DAILY 30 Days #30 tab 12/13/23 Aspirin EC [Ecotrin Low Dose] 81 mg PO DAILY 30 Days #30 tab 12/13/23 Atorvastatin [Lipitor] 10 mg PO HS 30 Days #30 tab 12/13/23 Budesonide-Formot 160-4.5 Mcg 2 puff INHALATION RT-BID 30 Days 12/13/23 [Symbicort 160-4.5 Mcg Inhaler] #1 each Cholecalciferol (Vitamin D3) 50 mcg PO DAILY 30 Days #30 tab 12/13/23 [Vitamin D3 (50 Mcg = 2000 Iu)] Famotidine [Pepcid] 20 mg PO BID PRN 30 Days #60 tab 12/13/23 Ipratropium-Albuterol Nebulize 3 ml INHALATION RT-QID PRN 30 Days 12/13/23 [Duoneb 0.5 mg-3 mg/3 ml Soln] #1 each Montelukast [Singulair] 10 mg PO HS 30 Days #30 tab 12/13/23 Sertraline [Zoloft] 100 mg PO HS 30 Days #30 tab 12/13/23 Ondansetron Odt [Zofran ODT] 4 mg PO Q8HR PRN #10 tab 01/04/24 traZODone HCL [Desyrel] 100 mg PO HS tab 02/22/24 Prochlorperazine [Compazine] 10 mg PO Q6H #15 tab 03/19/24 Allergies Allergy/AdvReac Type Severity Reaction Status Date / Time dicyclomine HCl [From Bentyl] Allergy Unknown Dyspnea Verified 03/30/24 00:36 latex Allergy Unknown Rash/Hives Verified 03/30/24 00:36 Benzoate Analogues Allergy Unknown Verified 03/30/24 00:36 nitrofurantoin Allergy Nausea Verified 03/30/24 00:36 [From Macrobid] Penicillins Allergy "[place] Verified 03/30/24 00:36 funny" adhesive AdvReac Unknown Itching Verified 03/30/24 00:36 ciprofloxacin AdvReac Unknown Nausea Verified 03/30/24 00:36 Macrolide Antibiotics AdvReac Unknown Nausea Verified 03/30/24 00:36 sulfamethoxazole AdvReac Unknown Unknown Verified 03/30/24 00:36 [From Bactrim] trimethoprim [From Bactrim] AdvReac Unknown Unknown Verified 03/30/24 00:36 diphenhydramine AdvReac Confusion Verified 03/30/24 00:36 [From Benadryl] Review of Systems ROS Statement: Those systems with pertinent positive or pertinent negative responses have been documented in the HPI. ROS Other: All systems not noted in ROS Statement are negative. Past Medical History Past Medical History: Asthma, Chest Pain / Angina, COPD, CVA/TIA, Diabetes Mellitus, GERD/Reflux, Hearing Disorder / Deafness, Hyperlipidemia, Hypertension, Liver Disease, Osteoarthritis (OA), Pneumonia, Seizure Disorder, Sleep Apnea/CPAP/BIPAP Additional Past Medical History / Comment(s): states CVA at 35 yrs old, no weakness @ this time. states seizure at 35 yrs old., DDD- back & neck pain., carpal tunnel syndrome. Has [facility] public guardian. History of Any Multi-Drug Resistant Organisms: None Reported Past Surgical History: Heart Catheterization, Orthopedic Surgery Additional Past Surgical History / Comment(s): Cysts removed, left thumb surgery, colonoscopy 08/24/2019. Skin tags removed from both eyes. Past Anesthesia/Blood Transfusion Reactions: Unable to Obtain, Motion Sickness, Postoperative Nausea & Vomiting (PONV) Past Psychological History: Anxiety, Bipolar, Depression, Schizophrenia Smoking Status: Current every day smoker Past Alcohol Use History: None Reported Past Drug Use History: None Reported - Past Family History Brother(s) Family Medical History: Diabetes Mellitus Additional Family Medical History / Comment(s): Patient has 2 brothers. One from complications from diabetes. The second is alive with diabetes. Sister(s) Family Medical History: Cancer Additional Family Medical History / Comment(s): Patient has one sister with breast cancer. Patient does not have any children. Father Family Medical History: Cancer Additional Family Medical History / Comment(s): Father in his 40s or 50s from colon cancer. Mother Family Medical History: Cancer Additional Family Medical History / Comment(s): Mother at age 68 from lung cancer. General Exam Limitations: no limitations General appearance: alert, in no apparent distress Head exam: Present: atraumatic, normocephalic, normal inspection Eye exam: Present: normal appearance, PERRL, EOMI Neck exam: Present: normal inspection. Absent: meningismus Respiratory exam: Absent: respiratory distress Cardiovascular Exam: Present: regular rate Neurological exam: Present: alert, oriented X3 Psychiatric exam: Present: normal affect, normal mood Skin exam: Present: warm, dry Course Vital Signs 03/30/24 03/30/24 03/30/24 00:36 04:38 04:39 Temperature 98.3 F 98.1 F 98.7 F Pulse Rate 71 57 L 57 L Respiratory 19 18 14 Rate Blood Pressure 135/80 120/86 120/86 O2 Sat by Pulse 99 96 97 Oximetry Medical Decision Making - Medical Decision Making Was pt. sent in by a medical professional or institution (, PA, STEAM SETTER, urgent care, hospital, or fdc...) When possible be specific @ -No Did you speak to anyone other than the patient for history (EMS, parent, family, police, friend...)? What history was obtained from this source @ -No Did you review nursing and triage notes (agree or disagree)? Why? @ -I reviewed and agree with nursing and triage notes Were old charts reviewed (outside hosp., previous admission, EMS record, old EKG, old radiological studies, urgent care reports/EKG's, fdc records)? Report findings @ -No old charts were reviewed Differential Diagnosis (chest pain, altered mental status, abdominal pain women, abdominal pain men, vaginal bleeding, weakness, fever, dyspnea, syncope, headache, dizziness, GI bleed, back pain, seizure, CVA, palpatations, mental health, musculoskeletal)? @ -MDM Differential Headache: Migraine, tension, cluster, carbon monoxide, central venous thrombosis, pension karma temporal arteritis, acute closure glaucoma, intercranial hemorrhage, mastoiditis, sinusitis, head injury this is not meant to be an all-inclusive list. EKG interpreted by me (3pts min.). @ -As above X-rays interpreted by me (1pt min.). @ -Chest x-ray shows no consolidation CT interpreted by me (1pt min.). @ -None done U/S interpreted by me (1pt. min.). @ -None done What testing was considered but not performed or refused? (CT, X-rays, U/S, labs)? Why? @ -None What meds were considered but not given or refused? Why? @ -None Did you discuss the management of the patient with other professionals (professionals i.e. , PA, STEAM SETTER, lab, RT, psych nurse, dialysis social worker, metalworking instructor, teacher, learning officer, adult protective caseworker)? Give summary @ -No Was smoking cessation discussed for >3mins.? @ -No Was critical care preformed (if so, how long)? @ -No Were there social determinants of health that impacted care today? How? (Homelessness, low income, unemployed, alcoholism, drug addiction, transportation, low edu. Level, literacy, decrease access to med. care, nursing home, rehab)? @ -No Was there de-escalation of care discussed even if they declined (Discuss DNR or withdrawal of care, Hospice)? DNR status @ -No What co-morbidities impacted this encounter? (DM, HTN, Smoking, COPD, CAD, Ca ncer, CVA, ARF, Chemo, Hep., AIDS, mental health diagnosis, sleep apnea, morbid obesity)? @ -None Was patient admitted / discharged? Hospital course, mention meds given and route, prescriptions, significant lab abnormalities, going to OR and other pertinent info. @ -54-year-old male presenting with chief complaint of headache neck pain and rib pain. History of migraines and chronic neck pain. No injury or trauma. No signs of distress. History and physical examination are conducted. Blood sugar here is 261, chest x-ray shows no consolidation. Patient is given medication for his symptoms and on reevaluation continues to be resting comfortably in the bed showing no acute signs of distress. Educated on today's findings and discharged home. Follow-up with PCP. Report back to ER with any new or worsening symptoms. Discussed return parameters and answered all questions. Patient conveyed verbal understanding and agreed to the plan. I discussed this case in detail with my attending Dr. Mulligan Undiagnosed new problem with uncertain prognosis? @ -No Drug Therapy requiring intensive monitoring for toxicity (Heparin, Nitro, Insulin, Cardizem)? @ -No Were any procedures done? @ -No Diagnosis/symptom? @ -Headache Acute, or Chronic, or Acute on Chronic? @ -Acute Uncomplicated (without systemic symptoms) or Complicated (systemic symptoms)? @ -Uncomplicated Side effects of treatment? @ -No Exacerbation, Progression, or Severe Exacerbation? @ -No Poses a threat to life or bodily function? How? (Chest pain, [place], [place], pneumonia, PE, COPD, DKA, ARF, appy, cholecystitis, CVA, Diverticulitis, Homicidal, Suicidal, threat to staff... and all critical care pts) @ -Unlikely - Lab Data Lab Results 03/30/24 Range/Units 00:41 POC Glucose (mg/dL) 261 H (70-110) mg/dL POC Glu Pattern Perforating Machine Operator ID Brad Gonzalez Disposition Clinical Impression: Headache Disposition: HOME SELF-CARE Condition: Good Instructions (If sedation given, give patient instructions): Acute Headache (ED) Additional Instructions: Follow-up with PCP. Report back to ER with any new or worsening symptoms. Is patient prescribed a controlled substance at d/c from ED?: No Referrals: Catherine Narayan MD [Primary Care Provider] - 1-2 days Time of Disposition: 04:03
[2024-03-30] MEDS: KETOROLAC 15 MG/ML 1 ML VIAL IM STA (02:31)
--- NOTE | 2024-03-30 03:42 | XR ---
EXAM: XR Chest, 2 Views CLINICAL HISTORY: ITS.REASON XR Reason: rib pain TECHNIQUE: Frontal and lateral views of the chest. COMPARISON: No relevant prior studies available. FINDINGS: Lungs: Unremarkable. No consolidation. Pleural space: Unremarkable. No pneumothorax. Heart: Unremarkable. No cardiomegaly. Mediastinum: Unremarkable. Normal mediastinal contour. Bones/joints: Unremarkable. No acute fracture. IMPRESSION: No consolidation.
[2024-03-30] MEDS: ONDANSETRON 4 MG/2 ML VIAL IM STA (04:31)
[2024-03-30 04:40] VITALS: BP 120/86; PULSE 57
[2024-03-30 04:41] VITALS: RESP 14; TEMP 98.7
[2024-03-31 06:59] LABS: Glucose,Whole Blood 261 mg/dL (70-110)
== END 2024-03-30 04:40 | disposition home or self-care (01) ==
LOC: EC 00:33
CPT/HCPCS: 36415; 71046; 96372; 99284

== ENCOUNTER 2024-04-05 10:53 | Emergency (ER) | payer MEDICARE ==
[2024-04-05 10:59] VITALS: TEMP 97.8
[2024-04-05 11:03] LABS: Glucose,Whole Blood 241 mg/dL (70-110)
--- NOTE | 2024-04-05 11:19 | ED ---
General Adult HPI - General Chief complaint: Recheck/Abnormal Lab/Rx Stated complaint: Dizziness Time Seen by Provider: 04/05/24 11:00 Source: patient, RN notes reviewed, old records reviewed Mode of arrival: EMS - History of Present Illness Initial comments: This is a 54-year-old male who presents to the emergency department stating this morning when he woke up he took his sugar and it was 400 so he came to the emergency department. Patient states he took 12 of his long-acting and also took some NovoLog before he ate. Patient states he did not eat much because he needed to come to the emergency department. Patient has any chest pain or palpitation. Patient denies any abdominal pain. Patient states he did have 1 bout of diarrhea. Patient denies any vomiting. Patient denies any back pain. Patient denies any fever chills or cough - Related Data Home Medications Medication Instructions Recorded Confirmed Nitroglycerin Sl Tabs [Nitrostat] 0.4 mg SL Q5M PRN 08/20/23 03/04/24 Insulin Glargine,Hum.rec.anlog 15 units SQ HS 12/06/23 03/04/24 [Lantus Solostar Pen] Albuterol Inhaler [Ventolin Hfa 1 - 2 puff INHALATION RT-Q6H PRN 02/25/24 03/04/24 Inhaler] Albuterol Nebulized [Ventolin 2.5 mg INHALATION RT-QID PRN 02/25/24 03/04/24 Nebulized] Empagliflozin [Jardiance] 25 mg PO DAILY 02/25/24 03/04/24 Lidocaine 5% Patch [Lidoderm 5% 1 patch TRANSDERM DAILY 02/25/24 03/04/24 Patch] Omeprazole 40 mg PO DAILY 02/25/24 03/04/24 Tamsulosin [Flomax] 0.4 mg PO BID 02/25/24 03/04/24 amLODIPine [Norvasc] 10 mg PO DAILY 02/25/24 03/04/24 hydrOXYzine pamoate [Vistaril] 50 mg PO HS PRN 02/25/24 03/04/24 Benzonatate [Tessalon Perles] 100 mg PO TID PRN 02/27/24 03/04/24 Hyoscyamine Sulfate [Levsin-Sl] 0.125 mg SL QID PRN 02/27/24 03/04/24 hydrOXYzine pamoate [Vistaril] 25 mg PO BID 03/04/24 03/04/24 Previous Rx's Medication Instructions Recorded ARIPiprazole [Abilify] 15 mg PO DAILY 30 Days #30 tab 12/13/23 Aspirin EC [Ecotrin Low Dose] 81 mg PO DAILY 30 Days #30 tab 12/13/23 Atorvastatin [Lipitor] 10 mg PO HS 30 Days #30 tab 12/13/23 Budesonide-Formot 160-4.5 Mcg 2 puff INHALATION RT-BID 30 Days 12/13/23 [Symbicort 160-4.5 Mcg Inhaler] #1 each Cholecalciferol (Vitamin D3) 50 mcg PO DAILY 30 Days #30 tab 12/13/23 [Vitamin D3 (50 Mcg = 2000 Iu)] Famotidine [Pepcid] 20 mg PO BID PRN 30 Days #60 tab 12/13/23 Ipratropium-Albuterol Nebulize 3 ml INHALATION RT-QID PRN 30 Days 12/13/23 [Duoneb 0.5 mg-3 mg/3 ml Soln] #1 each Montelukast [Singulair] 10 mg PO HS 30 Days #30 tab 12/13/23 Sertraline [Zoloft] 100 mg PO HS 30 Days #30 tab 12/13/23 Ondansetron Odt [Zofran ODT] 4 mg PO Q8HR PRN #10 tab 01/04/24 traZODone HCL [Desyrel] 100 mg PO HS tab 02/22/24 Prochlorperazine [Compazine] 10 mg PO Q6H #15 tab 03/19/24 Allergies Allergy/AdvReac Type Severity Reaction Status Date / Time dicyclomine HCl [From Bentyl] Allergy Unknown Dyspnea Verified 04/05/24 10:59 latex Allergy Unknown Rash/Hives Verified 04/05/24 10:59 Benzoate Analogues Allergy Unknown Verified 04/05/24 10:59 nitrofurantoin Allergy Nausea Verified 04/05/24 10:59 [From Macrobid] Penicillins Allergy "[place] Verified 04/05/24 10:59 funny" adhesive AdvReac Unknown Itching Verified 04/05/24 10:59 ciprofloxacin AdvReac Unknown Nausea Verified 04/05/24 10:59 Macrolide Antibiotics AdvReac Unknown Nausea Verified 04/05/24 10:59 sulfamethoxazole AdvReac Unknown Unknown Verified 04/05/24 10:59 [From Bactrim] trimethoprim [From Bactrim] AdvReac Unknown Unknown Verified 04/05/24 10:59 diphenhydramine AdvReac Confusion Verified 04/05/24 10:59 [From Benadryl] Review of Systems ROS Statement: Those systems with pertinent positive or pertinent negative responses have been documented in the HPI. ROS Other: All systems not noted in ROS Statement are negative. Past Medical History Past Medical History: Asthma, Chest Pain / Angina, COPD, CVA/TIA, Diabetes Mellitus, GERD/Reflux, Hearing Disorder / Deafness, Hyperlipidemia, Hypertension, Liver Disease, Osteoarthritis (OA), Pneumonia, Seizure Disorder, Sleep Apnea/CPAP/BIPAP Additional Past Medical History / Comment(s): states CVA at 35 yrs old, no weakness @ this time. states seizure at 35 yrs old., DDD- back & neck pain., carpal tunnel syndrome. Has [facility] public guardian. History of Any Multi-Drug Resistant Organisms: None Reported Past Surgical History: Heart Catheterization, Orthopedic Surgery Additional Past Surgical History / Comment(s): Cysts removed, left thumb surgery, colonoscopy 08/24/2019. Skin tags removed from both eyes. Past Anesthesia/Blood Transfusion Reactions: Unable to Obtain, Motion Sickness, Postoperative Nausea & Vomiting (PONV) Past Psychological History: Anxiety, Bipolar, Depression, Schizophrenia Smoking Status: Current every day smoker Past Alcohol Use History: None Reported Past Drug Use History: None Reported - Past Family History Brother(s) Family Medical History: Diabetes Mellitus Additional Family Medical History / Comment(s): Patient has 2 brothers. One from complications from diabetes. The second is alive with diabetes. Sister(s) Family Medical History: Cancer Additional Family Medical History / Comment(s): Patient has one sister with breast cancer. Patient does not have any children. Father Family Medical History: Cancer Additional Family Medical History / Comment(s): Father in his 40s or 50s from colon cancer. Mother Family Medical History: Cancer Additional Family Medical History / Comment(s): Mother at age 68 from lung cancer. General Exam - General Exam Comments Initial Comments: GENERAL: Patient is well-developed and well-nourished. Patient is nontoxic and well- hydrated and is in no distress. ENT: Neck is soft and supple. No significant lymphadenopathy is noted. Oropharynx is clear. Moist mucous membranes. Neck has full range of motion without eliciting any pain. EYES: The sclera were anicteric and conjunctiva were pink and moist. Extraocular movements were intact and pupils were equal round and reactive to light. Eyelids were unremarkable. PULMONARY: Unlabored respirations. Good breath sounds bilaterally. No audible rales rhonchi or wheezing was noted. CARDIOVASCULAR: There is a regular rate and rhythm without any murmurs gallops or rubs. ABDOMEN: Soft and nontender with normal bowel sounds. SKIN: Skin is clear with no lesions or rashes and otherwise unremarkable. NEUROLOGIC: Patient is alert and oriented x3. Cranial nerves II through XII are grossly intact. Motor and sensory are also intact. Normal speech, volume and content. Symmetrical smile. MUSCULOSKELETAL: Normal extremities with adequate strength and full range of motion. LYMPHATICS: No significant lymphadenopathy is noted PSYCHIATRIC: Normal psychiatric evaluation. Course Vital Signs 04/05/24 10:56 Temperature 97.8 F Pulse Rate 58 L Respiratory 16 Rate Blood Pressure 136/86 O2 Sat by Pulse 98 Oximetry Medical Decision Making - Medical Decision Making Was pt. sent in by a medical professional or institution (, SEAN, SEED DISTRICT SALES MANAGER, urgent care, hospital, or skilled nursing...) When possible be specific @ -No Did you speak to anyone other than the patient for history (EMS, parent, family, police, friend...)? What history was obtained from this source @ -No Did you review nursing and triage notes (agree or disagree)? Why? @ -I reviewed and agree with nursing and triage notes Were old charts reviewed (outside hosp., previous admission, EMS record, old EKG, old radiological studies, urgent care reports/EKG's, skilled nursing records)? Report findings @ -No old charts were reviewed Differential Diagnosis? @ -Hyperglycemia, DKA, poor compliance, this is not an all-inclusive list EKG interpreted by me (3pts min.). @ -As above X-rays interpreted by me (1pt min.). @ -None done CT interpreted by me (1pt min.). @ -None done U/S interpreted by me (1pt. min.). @ -None done What testing was considered but not performed or refused? (CT, X-rays, U/S, labs)? Why? @ -None What meds were considered but not given or refused? Why? @ -None Did you discuss the management of the patient with other professionals (professionals i.e. , PA, SEED DISTRICT SALES MANAGER, lab, RT, psych nurse, licensed clinical social worker, test administrator, teacher, defence force senior officer, top case assembler)? Give summary @ -No Was smoking cessation discussed for >3mins.? @ -No Was critical care preformed (if so, how long)? @ -No Were there social determinants of health that impacted care today? How? (Homelessness, low income, unemployed, alcoholism, drug addiction, transportation, low edu. Level, literacy, decrease access to med. care, retirement, rehab)? @ -No Was there de-escalation of care discussed even if they declined (Discuss DNR or withdrawal of care, Hospice)? DNR status @ -No What co-morbidities impacted this encounter? (DM, HTN, Smoking, COPD, CAD, Cancer, CVA, ARF, Chemo, Hep., AIDS, mental health diagnosis, sleep apnea, morbid obesity)? @ -None Was patient admitted / discharged? Hospital course, mention meds given and route, prescriptions, significant lab abnormalities, going to OR and other pertinent info. @ -Patient's lab work came back within normal range his sugar was over 200 but patient should use his sliding scale to control this and he is aware. Patient will follow-up with primary medical care doctor Undiagnosed new problem with uncertain prognosis? @ -No Drug Therapy requiring intensive monitoring for toxicity (Heparin, Nitro, Insulin, Cardizem)? @ -No Were any procedures done? @ -No Diagnosis/symptom? @ -Hyperglycemia Acute, or Chronic, or Acute on Chronic? @ -Acute Uncomplicated (without systemic symptoms) or Complicated (systemic symptoms)? @ -Uncomplicated Side effects of treatment? @ -No Exacerbation, Progression, or Severe Exacerbation? @ -No Poses a threat to life or bodily function? How? (Chest pain, [place], [place], pneumonia, PE, COPD, DKA, ARF, appy, cholecystitis, CVA, Diverticulitis, Homicidal, Suicidal, threat to staff... and all critical care pts) @ -No - Lab Data Result diagrams: 04/05/24 11:22 04/05/24 11:22 Lab Results 04/05/24 04/05/24 04/05/24 Range/Units 11:02 11:22 11:22 WBC 6.0 (3.8-10.6) k/uL RBC 5.11 (4.30-5.90) m/uL Hgb 15.2 (13.0-17.5) gm/dL Hct 44.1 (39.0-53.0) % MCV 86.4 (80.0-100.0) fL MCH 29.7 (25.0-35.0) pg MCHC 34.4 (31.0-37.0) g/dL RDW 13.3 (11.5-15.5) % Plt Count 194 (150-450) k/uL MPV 7.7 Neutrophils % 66 % Lymphocytes % 23 % Monocytes % 6 % Eosinophils % 4 % Basophils % 0 % Neutrophils # 3.9 (1.3-7.7) k/uL Lymphocytes # 1.4 (1.0-4.8) k/uL Monocytes # 0.4 (0-1.0) k/uL Eosinophils # 0.2 (0-0.7) k/uL Basophils # 0.0 (0-0.2) k/uL Poikilocytosis Slight Sodium 139 (137-145) mmol/L Potassium 3.7 (3.5-5.1) mmol/L Chloride 110 H (98-107) mmol/L Carbon Dioxide 23 (22-30) mmol/L Anion Gap 6 mmol/L BUN 7 L (9-20) mg/dL Creatinine 0.65 L (0.66-1.25) mg/dL Est GFR (CKD-EPI)AfAm >90 (>60 ml/min/1.73 sqM) Est GFR (CKD-EPI)NonAf >90 (>60 ml/min/1.73 sqM) Glucose 230 H (74-99) mg/dL POC Glucose (mg/dL) 241 H (70-110) mg/dL POC Glu Low Pressure Firer ID Angel Cook Calcium 9.0 (8.4-10.2) mg/dL Total Bilirubin 0.3 (0.2-1.3) mg/dL AST 25 (17-59) U/L ALT 34 (4-49) U/L Alkaline Phosphatase 82 (38-126) U/L Total Protein 5.9 L (6.3-8.2) g/dL Albumin 3.7 (3.5-5.0) g/dL Disposition Clinical Impression: Hyperglycemia Disposition: HOME SELF-CARE Condition: Good Instructions (If sedation given, give patient instructions): Diabetic Hyperglycemia (ED) Is patient prescribed a controlled substance at d/c from ED?: No Referrals: Catherine Narayan MD [Primary Care Provider] - 1-2 days Time of Disposition: 12:16
[2024-04-05] MEDS: SODIUM CHLORIDE 0.9% 500 ML 500 ML IV ONE (11:24)
[2024-04-05 11:33] LABS: Basophils % (A) 0 %; Eosinophils # (A) 0.2 k/uL (0-0.7); Eosinophils % (A) 4 %; HCT 44.1 % (39.0-53.0); HGB 15.2 gm/dL (13.0-17.5); Lymphocytes # (A) 1.4 k/uL (1.0-4.8); Lymphocytes % (A) 23 %; MCH 29.7 pg (25.0-35.0); MCHC 34.4 g/dL (31.0-37.0); MCV 86.4 fL (80.0-100.0); Mean Platelet Volume 7.7; Monocytes # (A) 0.4 k/uL (0-1.0); Monocytes % (A) 6 %; Neutrophils # (A) 3.9 k/uL (1.3-7.7); Neutrophils % (A) 66 %; Platelet Count 194 k/uL (150-450); Poikilocytosis Slight; RBC 5.11 m/uL (4.30-5.90); RDW 13.3 % (11.5-15.5)
[2024-04-05 11:48] LABS: ALT 34 U/L (4-49); AST 25 U/L (17-59); African American GFR (CKD) >90 (>60 ml/min/1.73 sqM); Albumin 3.7 g/dL (3.5-5.0); Alkaline Phosphatase 82 U/L (38-126); Anion Gap 6 mmol/L; Blood Urea Nitrogen 7 mg/dL (9-20); Carbon Dioxide 23 mmol/L (22-30); Chloride 110 mmol/L (98-107); Glucose 230 mg/dL (74-99); Non-African American GFR(CKD) >90 (>60 ml/min/1.73 sqM); Potassium 3.7 mmol/L (3.5-5.1); Sodium 139 mmol/L (137-145); Total Bilirubin 0.3 mg/dL (0.2-1.3); Total Protein 5.9 g/dL (6.3-8.2)
[2024-04-05 12:32] VITALS: BP 132/75; PULSE 85; RESP 18
== END 2024-04-05 12:32 | disposition home or self-care (01) ==
LOC: EC 10:53
CPT/HCPCS: 36415; 80053; 85025; 99284

== ENCOUNTER 2024-04-07 00:35 | Emergency (ER) | payer MEDICARE, OTHER ==
[2024-04-07 00:49] VITALS: BP 137/95; PULSE 70; RESP 18; TEMP 98.3
--- NOTE | 2024-04-07 00:56 | ED ---
Recheck HPI - General Chief Complaint: Recheck/Abnormal Lab/Rx Stated Complaint: Mental health Time Seen by Provider: 04/07/24 00:51 Source: patient, RN notes reviewed, old records reviewed Mode of arrival: ambulatory Limitations: no limitations - History of Present Illness Initial Comments: This is a 54-year-old male stating he is fighting issues with his guardian and coming to ER for evaluation of wanting to get rid of his guardian. Patient is well-known to this emergency department with multiple ER visits multiple times a day MD Complaint: other (Recheck) -: days(s) Symptoms Since Prior Visit: no new symptoms Associated Symptoms: none Treatments Prior to Arrival: other (0) - Related Data Home Medications Medication Instructions Recorded Confirmed Nitroglycerin Sl Tabs [Nitrostat] 0.4 mg SL Q5M PRN 08/20/23 03/04/24 Insulin Glargine,Hum.rec.anlog 15 units SQ HS 12/06/23 03/04/24 [Lantus Solostar Pen] Albuterol Inhaler [Ventolin Hfa 1 - 2 puff INHALATION RT-Q6H PRN 02/25/24 03/04/24 Inhaler] Albuterol Nebulized [Ventolin 2.5 mg INHALATION RT-QID PRN 02/25/24 03/04/24 Nebulized] Empagliflozin [Jardiance] 25 mg PO DAILY 02/25/24 03/04/24 Lidocaine 5% Patch [Lidoderm 5% 1 patch TRANSDERM DAILY 02/25/24 03/04/24 Patch] Omeprazole 40 mg PO DAILY 02/25/24 03/04/24 Tamsulosin [Flomax] 0.4 mg PO BID 02/25/24 03/04/24 amLODIPine [Norvasc] 10 mg PO DAILY 02/25/24 03/04/24 hydrOXYzine pamoate [Vistaril] 50 mg PO HS PRN 02/25/24 03/04/24 Benzonatate [Tessalon Perles] 100 mg PO TID PRN 02/27/24 03/04/24 Hyoscyamine Sulfate [Levsin-Sl] 0.125 mg SL QID PRN 02/27/24 03/04/24 hydrOXYzine pamoate [Vistaril] 25 mg PO BID 03/04/24 03/04/24 Previous Rx's Medication Instructions Recorded ARIPiprazole [Abilify] 15 mg PO DAILY 30 Days #30 tab 12/13/23 Aspirin EC [Ecotrin Low Dose] 81 mg PO DAILY 30 Days #30 tab 12/13/23 Atorvastatin [Lipitor] 10 mg PO HS 30 Days #30 tab 12/13/23 Budesonide-Formot 160-4.5 Mcg 2 puff INHALATION RT-BID 30 Days 12/13/23 [Symbicort 160-4.5 Mcg Inhaler] #1 each Cholecalciferol (Vitamin D3) 50 mcg PO DAILY 30 Days #30 tab 12/13/23 [Vitamin D3 (50 Mcg = 2000 Iu)] Famotidine [Pepcid] 20 mg PO BID PRN 30 Days #60 tab 12/13/23 Ipratropium-Albuterol Nebulize 3 ml INHALATION RT-QID PRN 30 Days 12/13/23 [Duoneb 0.5 mg-3 mg/3 ml Soln] #1 each Montelukast [Singulair] 10 mg PO HS 30 Days #30 tab 12/13/23 Sertraline [Zoloft] 100 mg PO HS 30 Days #30 tab 12/13/23 Ondansetron Odt [Zofran ODT] 4 mg PO Q8HR PRN #10 tab 01/04/24 traZODone HCL [Desyrel] 100 mg PO HS tab 02/22/24 Prochlorperazine [Compazine] 10 mg PO Q6H #15 tab 03/19/24 Allergies Allergy/AdvReac Type Severity Reaction Status Date / Time dicyclomine HCl [From Bentyl] Allergy Unknown Dyspnea Verified 04/07/24 01:23 latex Allergy Unknown Rash/Hives Verified 04/07/24 01:23 Benzoate Analogues Allergy Unknown Verified 04/07/24 01:23 nitrofurantoin Allergy Nausea Verified 04/07/24 01:23 [From Macrobid] Penicillins Allergy "[place] Verified 04/07/24 01:23 funny" adhesive AdvReac Unknown Itching Verified 04/07/24 01:23 ciprofloxacin AdvReac Unknown Nausea Verified 04/07/24 01:23 Macrolide Antibiotics AdvReac Unknown Nausea Verified 04/07/24 01:23 sulfamethoxazole AdvReac Unknown Unknown Verified 04/07/24 01:23 [From Bactrim] trimethoprim [From Bactrim] AdvReac Unknown Unknown Verified 04/07/24 01:23 diphenhydramine AdvReac Confusion Verified 04/07/24 01:23 [From Benadryl] Review of Systems ROS Statement: Those systems with pertinent positive or pertinent negative responses have been documented in the HPI. ROS Other: All systems not noted in ROS Statement are negative. Past Medical History Past Medical History: Asthma, Chest Pain / Angina, COPD, CVA/TIA, Diabetes Mellitus, GERD/Reflux, Hearing Disorder / Deafness, Hyperlipidemia, Hypertension, Liver Disease, Osteoarthritis (OA), Pneumonia, Seizure Disorder, Sleep Apnea/CPAP/BIPAP Additional Past Medical History / Comment(s): states CVA at 35 yrs old, no weakness @ this time. states seizure at 35 yrs old., DDD- back & neck pain., carpal tunnel syndrome. Has [employer] public guardian. History of Any Multi-Drug Resistant Organisms: None Reported Past Surgical History: Heart Catheterization, Orthopedic Surgery Additional Past Surgical History / Comment(s): Cysts removed, left thumb surgery, colonoscopy 08/24/2019. Skin tags removed from both eyes. Past Anesthesia/Blood Transfusion Reactions: Unable to Obtain, Motion Sickness, Postoperative Nausea & Vomiting (PONV) Past Psychological History: Anxiety, Bipolar, Depression, Schizophrenia Smoking Status: Current every day smoker Past Alcohol Use History: None Reported Past Drug Use History: None Reported - Past Family History Brother(s) Family Medical History: Diabetes Mellitus Additional Family Medical History / Comment(s): Patient has 2 brothers. One from complications from diabetes. The second is alive with diabetes. Sister(s) Family Medical History: Cancer Additional Family Medical History / Comment(s): Patient has one sister with breast cancer. Patient does not have any children. Father Family Medical History: Cancer Additional Family Medical History / Comment(s): Father in his 40s or 50s from colon cancer. Mother Family Medical History: Cancer Additional Family Medical History / Comment(s): Mother at age 68 from lung cancer. General Exam Limitations: no limitations General appearance: alert, in no apparent distress Head exam: Present: atraumatic, normocephalic, normal inspection Eye exam: Present: normal appearance, PERRL, EOMI. Absent: scleral icterus, conjunctival injection, periorbital swelling ENT exam: Present: normal exam, mucous membranes moist Neck exam: Present: normal inspection. Absent: tenderness, meningismus, lymphadenopathy Respiratory exam: Present: normal lung sounds bilaterally. Absent: respiratory distress, wheezes, rales, rhonchi, stridor Cardiovascular Exam: Present: regular rate, normal rhythm, normal heart sounds. Absent: systolic murmur, diastolic murmur, rubs, gallop, clicks GI/Abdominal exam: Present: soft, normal bowel sounds. Absent: distended, tenderness, guarding, rebound, rigid Extremities exam: Present: normal inspection, full ROM, normal capillary refill. Absent: tenderness, pedal edema, joint swelling, calf tenderness Back exam: Present: normal inspection Neurological exam: Present: alert, oriented X3, CN II-XII intact Psychiatric exam: Present: normal affect, normal mood Skin exam: Present: warm, dry, intact, normal color. Absent: rash Course Vital Signs 04/07/24 00:37 Temperature 98.3 F Pulse Rate 70 Respiratory 18 Rate Blood Pressure 137/95 O2 Sat by Pulse 98 Oximetry - Reevaluation(s) Reevaluation #1: 04/07/24 00:55 Medical records reviewed Reevaluation #2: 04/07/24 00:56 Patient symptoms improved Reevaluation #3: 04/07/24 00:56 Patient informed of results questions answered Reevaluation #4: Patient again informed that we have no further evaluation and treatment for him here Medical Decision Making - Medical Decision Making 54 Male presents to the ER today. This patient presents today for evaluation of being angry with his guardian. I told the patient that we are not able to deal with issues between him and his guardian and he will be discharged home Disposition Clinical Impression: Normal exam Disposition: HOME SELF-CARE Condition: Fair Instructions (If sedation given, give patient instructions): Normal Exam (ED) Is patient prescribed a controlled substance at d/c from ED?: No Referrals: None,Stated [Primary Care Provider] - 1-2 days Time of Disposition: 00:35
== END 2024-04-07 01:03 | disposition home or self-care (01) ==
LOC: EC 00:35
CPT/HCPCS: 99283

== ENCOUNTER 2024-04-07 01:17 | Emergency (ER) | payer MEDICARE, OTHER ==
--- NOTE | 2024-04-07 01:43 | ED ---
Psych HPI - General Source: police, RN notes reviewed, old records reviewed Mode of arrival: ambulatory - History of Present Illness MD Complaint: suicidal ideation -: unknown Associated Psychiatric Symptoms: depression, suicidal ideation History of same: Yes Quality: constant Improves With: none Worsens With: none Associated Symptoms: denies other symptoms Treatments Prior to Arrival: placed on mental health hold If Self Harm: admits thoughts of self harm <Andrea Sheppard - Last Filed: 04/07/24 01:44> <Kylie Christopher - Last Filed: 04/07/24 12:47> - General Chief Complaint: Psychiatric Symptoms Stated Complaint: Petition Time Seen by Provider: 04/07/24 01:27 - History of Present Illness Initial Comments: This patient was just seen in our emergency department within the past hour, patient was discharged home and upon that time he called police stating he was s uicidal and police did put him under petition (Andrea Sheppard) - Related Data Home Medications Medication Instructions Recorded Confirmed Nitroglycerin Sl Tabs [Nitrostat] 0.4 mg SL Q5M PRN 08/20/23 03/04/24 Insulin Glargine,Hum.rec.anlog 15 units SQ HS 12/06/23 03/04/24 [Lantus Solostar Pen] Albuterol Inhaler [Ventolin Hfa 1 - 2 puff INHALATION RT-Q6H PRN 02/25/24 03/04/24 Inhaler] Albuterol Nebulized [Ventolin 2.5 mg INHALATION RT-QID PRN 02/25/24 03/04/24 Nebulized] Empagliflozin [Jardiance] 25 mg PO DAILY 02/25/24 03/04/24 Lidocaine 5% Patch [Lidoderm 5% 1 patch TRANSDERM DAILY 02/25/24 03/04/24 Patch] Omeprazole 40 mg PO DAILY 02/25/24 03/04/24 Tamsulosin [Flomax] 0.4 mg PO BID 02/25/24 03/04/24 amLODIPine [Norvasc] 10 mg PO DAILY 02/25/24 03/04/24 hydrOXYzine pamoate [Vistaril] 50 mg PO HS PRN 02/25/24 03/04/24 Benzonatate [Tessalon Perles] 100 mg PO TID PRN 02/27/24 03/04/24 Hyoscyamine Sulfate [Levsin-Sl] 0.125 mg SL QID PRN 02/27/24 03/04/24 hydrOXYzine pamoate [Vistaril] 25 mg PO BID 03/04/24 03/04/24 Previous Rx's Medication Instructions Recorded ARIPiprazole [Abilify] 15 mg PO DAILY 30 Days #30 tab 12/13/23 Aspirin EC [Ecotrin Low Dose] 81 mg PO DAILY 30 Days #30 tab 12/13/23 Atorvastatin [Lipitor] 10 mg PO HS 30 Days #30 tab 12/13/23 Budesonide-Formot 160-4.5 Mcg 2 puff INHALATION RT-BID 30 Days 12/13/23 [Symbicort 160-4.5 Mcg Inhaler] #1 each Cholecalciferol (Vitamin D3) 50 mcg PO DAILY 30 Days #30 tab 12/13/23 [Vitamin D3 (50 Mcg = 2000 Iu)] Famotidine [Pepcid] 20 mg PO BID PRN 30 Days #60 tab 12/13/23 Ipratropium-Albuterol Nebulize 3 ml INHALATION RT-QID PRN 30 Days 12/13/23 [Duoneb 0.5 mg-3 mg/3 ml Soln] #1 each Montelukast [Singulair] 10 mg PO HS 30 Days #30 tab 12/13/23 Sertraline [Zoloft] 100 mg PO HS 30 Days #30 tab 12/13/23 Ondansetron Odt [Zofran ODT] 4 mg PO Q8HR PRN #10 tab 01/04/24 traZODone HCL [Desyrel] 100 mg PO HS tab 02/22/24 Prochlorperazine [Compazine] 10 mg PO Q6H #15 tab 03/19/24 Allergies Allergy/AdvReac Type Severity Reaction Status Date / Time dicyclomine HCl [From Bentyl] Allergy Unknown Dyspnea Verified 04/07/24 01:23 latex Allergy Unknown Rash/Hives Verified 04/07/24 01:23 Benzoate Analogues Allergy Unknown Verified 04/07/24 01:23 nitrofurantoin Allergy Nausea Verified 04/07/24 01:23 [From Macrobid] Penicillins Allergy "[place] Verified 04/07/24 01:23 funny" adhesive AdvReac Unknown Itching Verified 04/07/24 01:23 ciprofloxacin AdvReac Unknown Nausea Verified 04/07/24 01:23 Macrolide Antibiotics AdvReac Unknown Nausea Verified 04/07/24 01:23 sulfamethoxazole AdvReac Unknown Unknown Verified 04/07/24 01:23 [From Bactrim] trimethoprim [From Bactrim] AdvReac Unknown Unknown Verified 04/07/24 01:23 diphenhydramine AdvReac Confusion Verified 04/07/24 01:23 [From Benadryl] Review of Systems ROS Other: All systems not noted in ROS Statement are negative. <Andrea Sheppard - Last Filed: 04/07/24 01:44> ROS Other: All systems not noted in ROS Statement are negative. <Kylie Christopher - Last Filed: 04/07/24 12:47> ROS Statement: Those systems with pertinent positive or pertinent negative responses have been documented in the HPI. Past Medical History Past Medical History: Asthma, Chest Pain / Angina, COPD, CVA/TIA, Diabetes Mellitus, GERD/Reflux, Hearing Disorder / Deafness, Hyperlipidemia, Hypertension, Liver Disease, Osteoarthritis (OA), Pneumonia, Seizure Disorder, Sleep Apnea/CPAP/BIPAP Additional Past Medical History / Comment(s): states CVA at 35 yrs old, no weakness @ this time. states seizure at 35 yrs old., DDD- back & neck pain., carpal tunnel syndrome. Has [employer] public guardian. History of Any Multi-Drug Resistant Organisms: None Reported Past Surgical History: Heart Catheterization, Orthopedic Surgery Additional Past Surgical History / Comment(s): Cysts removed, left thumb surgery, colonoscopy 08/24/2019. Skin tags removed from both eyes. Past Anesthesia/Blood Transfusion Reactions: Unable to Obtain, Motion Sickness, Postoperative Nausea & Vomiting (PONV) Past Psychological History: Anxiety, Bipolar, Depression, Schizophrenia Smoking Status: Current every day smoker Past Alcohol Use History: None Reported Past Drug Use History: None Reported - Past Family History Brother(s) Family Medical History: Diabetes Mellitus Additional Family Medical History / Comment(s): Patient has 2 brothers. One from complications from diabetes. The second is alive with diabetes. Sister(s) Family Medical History: Cancer Additional Family Medical History / Comment(s): Patient has one sister with breast cancer. Patient does not have any children. Father Family Medical History: Cancer Additional Family Medical History / Comment(s): Father in his 40s or 50s from colon cancer. Mother Family Medical History: Cancer Additional Family Medical History / Comment(s): Mother at age 68 from lung cancer. <Andrea Sheppard - Last Filed: 04/07/24 01:44> General Exam Limitations: no limitations General appearance: alert, in no apparent distress Head exam: Present: atraumatic, normocephalic, normal inspection Eye exam: Present: normal appearance, PERRL, EOMI. Absent: scleral icterus, conjunctival injection, periorbital swelling ENT exam: Present: normal exam, mucous membranes moist Neck exam: Present: normal inspection. Absent: tenderness, meningismus, lymphadenopathy Respiratory exam: Present: normal lung sounds bilaterally. Absent: respiratory distress, wheezes, rales, rhonchi, stridor Cardiovascular Exam: Present: regular rate, normal rhythm, normal heart sounds. Absent: systolic murmur, diastolic murmur, rubs, gallop, clicks GI/Abdominal exam: Present: soft, normal bowel sounds. Absent: distended, tenderness, guarding, rebound, rigid Extremities exam: Present: normal inspection, full ROM, normal capillary refill. Absent: tenderness, pedal edema, joint swelling, calf tenderness Back exam: Present: normal inspection Neurological exam: Present: alert, oriented X3, CN II-XII intact Psychiatric exam: Present: normal affect, normal mood Skin exam: Present: warm, dry, intact, normal color. Absent: rash <Andrea Sheppard - Last Filed: 04/07/24 01:44> Course <Andrea Sheppard - Last Filed: 04/07/24 01:44> Vital Signs 04/07/24 04/07/24 01:20 09:11 Temperature 98.8 F 98.7 F Pulse Rate 75 87 Respiratory 18 20 Rate Blood Pressure 137/79 135/86 O2 Sat by Pulse 99 98 Oximetry - Reevaluation(s) Reevaluation #1: 04/07/24 01:44 Medical records reviewed (Andrea Sheppard) Reevaluation #2: 04/07/24 01:45 Medically clear for psychiatric evaluation (Andrea Sheppard) Medical Decision Making <Kylie Christopher - Last Filed: 04/07/24 12:47> - Medical Decision Making Patient evaluated by EPS. Stable for discharge home at this time. Diagnosis/symptom? @ -Acute depression Acute, or Chronic, or Acute on Chronic? @ -Acute on chronic Uncomplicated (without systemic symptoms) or Complicated (systemic symptoms)? @ -Complicated Side effects of treatment? @ -[No] Exacerbation, Progression, or Severe Exacerbation? @ -[No] Poses a threat to life or bodily function? How? (Chest pain, [place], [place], pneumonia, PE, COPD, DKA, ARF, appy, cholecystitis, CVA, Diverticulitis, Homicidal, Suicidal, threat to staff... and all critical care pts) @ -[No] (Kylie Christopher) Disposition <Andrea Sheppard - Last Filed: 04/07/24 01:44> Is patient prescribed a controlled substance at d/c from ED?: No Time of Disposition: 12:45 <Kylie Christopher - Last Filed: 04/07/24 12:47> Clinical Impression: Schizoaffective disorder, depressive type Disposition: HOME SELF-CARE Condition: Stable Instructions (If sedation given, give patient instructions): Depression (ED) Referrals: None,Stated [Primary Care Provider] - 1-2 days
[2024-04-07 13:13] VITALS: BP 119/61; PULSE 78; RESP 18; TEMP 98.1
== END 2024-04-07 13:15 | disposition home or self-care (01) ==
LOC: EC 01:17
CPT/HCPCS: 82075; 99284

== ENCOUNTER 2024-04-08 08:12 | Emergency (ER) | payer MEDICARE, OTHER ==
[2024-04-08 08:15] VITALS: RESP 16; TEMP 97.6
[2024-04-08 08:45] LABS: Glucose,Whole Blood 173 mg/dL (70-110)
--- NOTE | 2024-04-08 08:46 | ED ---
General Adult HPI - General Chief complaint: Weakness Stated complaint: staggering Time Seen by Provider: 04/08/24 08:15 Source: patient, RN notes reviewed, old records reviewed Mode of arrival: ambulatory Limitations: no limitations - History of Present Illness Initial comments: This is a 54-year-old male who presents to the emergency department stating that he came in again today even though this is his fourth visit in 3 days. He states today he is here because he was staggering a little bit in the melanite. Patient was able to ambulate fine for me in the emergency department. Patient states he is also mildly nauseous. Patient denies any chest pain difficult breathing shortness of breath. Patient Nuys any suicidal or homicidal ideations. Patient Nuys any abdominal pain. - Related Data Home Medications Medication Instructions Recorded Confirmed Nitroglycerin Sl Tabs [Nitrostat] 0.4 mg SL Q5M PRN 08/20/23 03/04/24 Insulin Glargine,Hum.rec.anlog 15 units SQ HS 12/06/23 03/04/24 [Lantus Solostar Pen] Albuterol Inhaler [Ventolin Hfa 1 - 2 puff INHALATION RT-Q6H PRN 02/25/24 03/04/24 Inhaler] Albuterol Nebulized [Ventolin 2.5 mg INHALATION RT-QID PRN 02/25/24 03/04/24 Nebulized] Empagliflozin [Jardiance] 25 mg PO DAILY 02/25/24 03/04/24 Lidocaine 5% Patch [Lidoderm 5% 1 patch TRANSDERM DAILY 02/25/24 03/04/24 Patch] Omeprazole 40 mg PO DAILY 02/25/24 03/04/24 Tamsulosin [Flomax] 0.4 mg PO BID 02/25/24 03/04/24 amLODIPine [Norvasc] 10 mg PO DAILY 02/25/24 03/04/24 hydrOXYzine pamoate [Vistaril] 50 mg PO HS PRN 02/25/24 03/04/24 Benzonatate [Tessalon Perles] 100 mg PO TID PRN 02/27/24 03/04/24 Hyoscyamine Sulfate [Levsin-Sl] 0.125 mg SL QID PRN 02/27/24 03/04/24 hydrOXYzine pamoate [Vistaril] 25 mg PO BID 03/04/24 03/04/24 Previous Rx's Medication Instructions Recorded ARIPiprazole [Abilify] 15 mg PO DAILY 30 Days #30 tab 12/13/23 Aspirin EC [Ecotrin Low Dose] 81 mg PO DAILY 30 Days #30 tab 12/13/23 Atorvastatin [Lipitor] 10 mg PO HS 30 Days #30 tab 12/13/23 Budesonide-Formot 160-4.5 Mcg 2 puff INHALATION RT-BID 30 Days 12/13/23 [Symbicort 160-4.5 Mcg Inhaler] #1 each Cholecalciferol (Vitamin D3) 50 mcg PO DAILY 30 Days #30 tab 12/13/23 [Vitamin D3 (50 Mcg = 2000 Iu)] Famotidine [Pepcid] 20 mg PO BID PRN 30 Days #60 tab 12/13/23 Ipratropium-Albuterol Nebulize 3 ml INHALATION RT-QID PRN 30 Days 12/13/23 [Duoneb 0.5 mg-3 mg/3 ml Soln] #1 each Montelukast [Singulair] 10 mg PO HS 30 Days #30 tab 12/13/23 Sertraline [Zoloft] 100 mg PO HS 30 Days #30 tab 12/13/23 Ondansetron Odt [Zofran ODT] 4 mg PO Q8HR PRN #10 tab 01/04/24 traZODone HCL [Desyrel] 100 mg PO HS tab 02/22/24 Prochlorperazine [Compazine] 10 mg PO Q6H #15 tab 03/19/24 Allergies Allergy/AdvReac Type Severity Reaction Status Date / Time dicyclomine HCl [From Bentyl] Allergy Unknown Dyspnea Verified 04/07/24 01:23 latex Allergy Unknown Rash/Hives Verified 04/07/24 01:23 Benzoate Analogues Allergy Unknown Verified 04/07/24 01:23 nitrofurantoin Allergy Nausea Verified 04/07/24 01:23 [From Macrobid] Penicillins Allergy "Peyton Verified 04/07/24 01:23 funny" adhesive AdvReac Unknown Itching Verified 04/07/24 01:23 ciprofloxacin AdvReac Unknown Nausea Verified 04/07/24 01:23 Macrolide Antibiotics AdvReac Unknown Nausea Verified 04/07/24 01:23 sulfamethoxazole AdvReac Unknown Unknown Verified 04/07/24 01:23 [From Bactrim] trimethoprim [From Bactrim] AdvReac Unknown Unknown Verified 04/07/24 01:23 diphenhydramine AdvReac Confusion Verified 04/07/24 01:23 [From Benadryl] Review of Systems ROS Statement: Those systems with pertinent positive or pertinent negative responses have been documented in the HPI. ROS Other: All systems not noted in ROS Statement are negative. Past Medical History Past Medical History: Asthma, Chest Pain / Angina, COPD, CVA/TIA, Diabetes Mellitus, GERD/Reflux, Hearing Disorder / Deafness, Hyperlipidemia, Hypertension, Liver Disease, Osteoarthritis (OA), Pneumonia, Seizure Disorder, Sleep Apnea/CPAP/BIPAP Additional Past Medical History / Comment(s): states CVA at 35 yrs old, no weakness @ this time. states seizure at 35 yrs old., DDD- back & neck pain., carpal tunnel syndrome. Has [employer] public guardian. History of Any Multi-Drug Resistant Organisms: None Reported Past Surgical History: Heart Catheterization, Orthopedic Surgery Additional Past Surgical History / Comment(s): Cysts removed, left thumb surgery, colonoscopy 08/24/2019. Skin tags removed from both eyes. Past Anesthesia/Blood Transfusion Reactions: Unable to Obtain, Motion Sickness, Postoperative Nausea & Vomiting (PONV) Past Psychological History: Anxiety, Bipolar, Depression, Schizophrenia Smoking Status: Current every day smoker Past Alcohol Use History: None Reported Past Drug Use History: None Reported - Past Family History Brother(s) Family Medical History: Diabetes Mellitus Additional Family Medical History / Comment(s): Patient has 2 brothers. One from complications from diabetes. The second is alive with diabetes. Sister(s) Family Medical History: Cancer Additional Family Medical History / Comment(s): Patient has one sister with breast cancer. Patient does not have any children. Father Family Medical History: Cancer Additional Family Medical History / Comment(s): Father in his 40s or 50s from colon cancer. Mother Family Medical History: Cancer Additional Family Medical History / Comment(s): Mother at age 68 from lung cancer. General Exam - General Exam Comments Initial Comments: GENERAL: Patient is well-developed and well-nourished. Patient is nontoxic and well- hydrated and is in no acute distress. ENT: Neck is soft and supple. No significant lymphadenopathy is noted. Oropharynx is clear. Moist mucous membranes. Neck has full range of motion without eliciting any pain. EYES: The sclera were anicteric and conjunctiva were pink and moist. Extraocular movements were intact and pupils were equal round and reactive to light. Eyelids were unremarkable. PULMONARY: Unlabored respirations. Good breath sounds bilaterally. No audible rales rhonchi or wheezing was noted. CARDIOVASCULAR: There is a regular rate and rhythm without any murmurs gallops or rubs. ABDOMEN: Soft and nontender with normal bowel sounds. SKIN: Skin is clear with no lesions or rashes and otherwise unremarkable. NEUROLOGIC: Patient is alert and oriented x3. Cranial nerves II through XII are grossly intact. Motor and sensory are also intact. Normal speech, volume and content. Symmetrical smile. MUSCULOSKELETAL: Normal extremities with adequate strength and full range of motion. LYMPHATICS: No significant lymphadenopathy is noted PSYCHIATRIC: Normal psychiatric evaluation. Limitations: no limitations Course Vital Signs 04/08/24 08:13 Temperature 97.6 F Pulse Rate 79 Respiratory 16 Rate Blood Pressure 119/74 O2 Sat by Pulse 98 Oximetry Medical Decision Making - Medical Decision Making EKG is interpreted by myself but EKG shows a sinus bradycardia 58 bpm OR inter edu is 145 QRS 120 QT interval is 417 QTc is 414. Patient EKG shows no ST segment ovation or depression Was pt. sent in by a medical professional or institution (, SEAN, VISUAL LEAD, urgent care, hospital, or prison...) When possible be specific @ -No Did you speak to anyone other than the patient for history (EMS, parent, family, police, friend...)? What history was obtained from this source @ -No Did you review nursing and triage notes (agree or disagree)? Why? @ -I reviewed and agree with nursing and triage notes Were old charts reviewed (outside hosp., previous admission, EMS record, old EKG, old radiological studies, urgent care reports/EKG's, prison records)? Report findings @ -No old charts were reviewed Differential Diagnosis? @ -Malingering, confabulation, off-balance, dizziness, this is not an all- inclusive list EKG interpreted by me (3pts min.). @ -As above X-rays interpreted by me (1pt min.). @ -None done CT interpreted by me (1pt min.). @ -None done U/S interpreted by me (1pt. min.). @ -None done What testing was considered but not performed or refused? (CT, X-rays, U/S, labs)? Why? @ -None What meds were considered but not given or refused? Why? @ -None Did you discuss the management of the patient with other professionals (professionals i.e. DrRedd, PA, VISUAL LEAD, lab, RT, psych nurse, social sciences department chair, dining car hop, teacher, child support officer, case management coordinator)? Give summary @ -No Was smoking cessation discussed for >3mins.? @ -No Was critical care preformed (if so, how long)? @ -No Were there social determinants of health that impacted care today? How? (Homelessness, low income, unemployed, alcoholism, drug addiction, transportation, low edu. Level, literacy, decrease access to med. care, skilled nursing, rehab)? @ -No Was there de-escalation of care discussed even if they declined (Discuss DNR or withdrawal of care, Hospice)? DNR status @ -No What co-morbidities impacted this encounter? (DM, HTN, Smoking, COPD, CAD, Cancer, CVA, ARF, Chemo, Hep., AIDS, mental health diagnosis, sleep apnea, morbid obesity)? @ -None Was patient admitted / discharged? Hospital course, mention meds given and route, prescriptions, significant lab abnormalities, going to OR and other pertinent info. @ -Patient was able to ambulate without problem patient's lab work was within normal range patient will follow-up with his primary medical care doctor Undiagnosed new problem with uncertain prognosis? @ -No Drug Therapy requiring intensive monitoring for toxicity (Heparin, Nitro, Insulin, Cardizem)? @ -No Were any procedures done? @ -No Diagnosis/symptom? @ -Ataxia Acute, or Chronic, or Acute on Chronic? @ -Acute Uncomplicated (without systemic symptoms) or Complicated (systemic symptoms)? @ -Uncommon Side effects of treatment? @ -No Exacerbation, Progression, or Severe Exacerbation? @ -No Poses a threat to life or bodily function? How? (Chest pain, [place], [place], pneumonia, PE, COPD, DKA, ARF, appy, cholecystitis, CVA, Diverticulitis, Homicidal, Suicidal, threat to staff... and all critical care pts) @ -No - Lab Data Result diagrams: 04/08/24 08:43 04/08/24 08:43 Lab Results 04/08/24 04/08/24 04/08/24 Range/Units 08:42 08:43 08:43 WBC 7.0 (3.8-10.6) k/uL RBC 5.30 (4.30-5.90) m/uL Hgb 16.0 (13.0-17.5) gm/dL Hct 45.3 (39.0-53.0) % MCV 85.6 (80.0-100.0) fL MCH 30.1 (25.0-35.0) pg MCHC 35.2 (31.0-37.0) g/dL RDW 13.4 (11.5-15.5) % Plt Count 188 (150-450) k/uL MPV 7.6 Neutrophils % 71 % Lymphocytes % 15 % Monocytes % 8 % Eosinophils % 3 % Basophils % 0 % Neutrophils # 5.0 (1.3-7.7) k/uL Lymphocytes # 1.1 (1.0-4.8) k/uL Monocytes # 0.6 (0-1.0) k/uL Eosinophils # 0.2 (0-0.7) k/uL Basophils # 0.0 (0-0.2) k/uL Poikilocytosis Slight Sodium 140 (137-145) mmol/L Potassium 3.5 (3.5-5.1) mmol/L Chloride 107 (98-107) mmol/L Carbon Dioxide 24 (22-30) mmol/L Anion Gap 9 mmol/L BUN 13 (9-20) mg/dL Creatinine 0.70 (0.66-1.25) mg/dL Est GFR (CKD-EPI)AfAm >90 (>60 ml/min/1.73 sqM) Est GFR (CKD-EPI)NonAf >90 (>60 ml/min/1.73 sqM) Glucose 160 H (74-99) mg/dL POC Glucose (mg/dL) 173 H (70-110) mg/dL POC Glu Compounding Technician ID [place] Flore[place] Calcium 9.8 (8.4-10.2) mg/dL Total Bilirubin 0.6 (0.2-1.3) mg/dL AST 32 (17-59) U/L ALT 46 (4-49) U/L Alkaline Phosphatase 87 (38-126) U/L Total Protein 6.7 (6.3-8.2) g/dL Albumin 4.3 (3.5-5.0) g/dL Disposition Clinical Impression: Staggering Disposition: HOME SELF-CARE Condition: Good Is patient prescribed a controlled substance at d/c from ED?: No Referrals: Catherine Narayan MD [Primary Care Provider] - 1-2 days Time of Disposition: 09:34
[2024-04-08 08:59] LABS: Basophils % (A) 0 %; Eosinophils # (A) 0.2 k/uL (0-0.7); Eosinophils % (A) 3 %; HCT 45.3 % (39.0-53.0); Lymphocytes # (A) 1.1 k/uL (1.0-4.8); Lymphocytes % (A) 15 %; MCH 30.1 pg (25.0-35.0); MCHC 35.2 g/dL (31.0-37.0); MCV 85.6 fL (80.0-100.0); Mean Platelet Volume 7.6; Monocytes # (A) 0.6 k/uL (0-1.0); Monocytes % (A) 8 %; Neutrophils % (A) 71 %; Platelet Count 188 k/uL (150-450); Poikilocytosis Slight; RDW 13.4 % (11.5-15.5)
[2024-04-08 09:11] LABS: ALT 46 U/L (4-49); AST 32 U/L (17-59); African American GFR (CKD) >90 (>60 ml/min/1.73 sqM); Albumin 4.3 g/dL (3.5-5.0); Alkaline Phosphatase 87 U/L (38-126); Anion Gap 9 mmol/L; Blood Urea Nitrogen 13 mg/dL (9-20); Calcium 9.8 mg/dL (8.4-10.2); Carbon Dioxide 24 mmol/L (22-30); Chloride 107 mmol/L (98-107); Glucose 160 mg/dL (74-99); Non-African American GFR(CKD) >90 (>60 ml/min/1.73 sqM); Potassium 3.5 mmol/L (3.5-5.1); Sodium 140 mmol/L (137-145); Total Bilirubin 0.6 mg/dL (0.2-1.3); Total Protein 6.7 g/dL (6.3-8.2)
[2024-04-08] MEDS: ONDANSETRON 4 MG/2 ML VIAL IVP STA (09:28)
[2024-04-08 09:45] VITALS: BP 125/85; PULSE 81
== END 2024-04-08 09:45 | disposition home or self-care (01) ==
LOC: EC 08:12
CPT/HCPCS: 36415; 80053; 85025; 93005; 96374; 99285

== ENCOUNTER 2024-04-09 08:25 | Emergency (ER) | payer MEDICARE, OTHER ==
[2024-04-09 08:31] VITALS: BP 128/87; PULSE 78; RESP 18; TEMP 97.7
--- NOTE | 2024-04-09 08:32 | ED ---
General Adult HPI - General Chief complaint: Nausea/Vomiting/Diarrhea Stated complaint: Chest pain, headaches Time Seen by Provider: 04/09/24 08:27 Source: patient, RN notes reviewed, old records reviewed Mode of arrival: ambulatory Limitations: no limitations - History of Present Illness Initial comments: 54-year-old male presenting with pain all over, nausea. Patient states symptoms are ongoing. He is attempting to follow-up with [facility]. He states he vomited 1 time this morning but was able to eat rice crispy cereal after this episode. 1 total episode of vomiting. No abdominal pain. No central chest pain. No fever. Multiple musculoskeletal pain complaints. - Related Data Home Medications Medication Instructions Recorded Confirmed Nitroglycerin Sl Tabs [Nitrostat] 0.4 mg SL Q5M PRN 08/20/23 03/04/24 Insulin Glargine,Hum.rec.anlog 15 units SQ HS 12/06/23 03/04/24 [Lantus Solostar Pen] Albuterol Inhaler [Ventolin Hfa 1 - 2 puff INHALATION RT-Q6H PRN 02/25/24 03/04/24 Inhaler] Albuterol Nebulized [Ventolin 2.5 mg INHALATION RT-QID PRN 02/25/24 03/04/24 Nebulized] Empagliflozin [Jardiance] 25 mg PO DAILY 02/25/24 03/04/24 Lidocaine 5% Patch [Lidoderm 5% 1 patch TRANSDERM DAILY 02/25/24 03/04/24 Patch] Omeprazole 40 mg PO DAILY 02/25/24 03/04/24 Tamsulosin [Flomax] 0.4 mg PO BID 02/25/24 03/04/24 amLODIPine [Norvasc] 10 mg PO DAILY 02/25/24 03/04/24 hydrOXYzine pamoate [Vistaril] 50 mg PO HS PRN 02/25/24 03/04/24 Benzonatate [Tessalon Perles] 100 mg PO TID PRN 02/27/24 03/04/24 Hyoscyamine Sulfate [Levsin-Sl] 0.125 mg SL QID PRN 02/27/24 03/04/24 hydrOXYzine pamoate [Vistaril] 25 mg PO BID 03/04/24 03/04/24 Previous Rx's Medication Instructions Recorded ARIPiprazole [Abilify] 15 mg PO DAILY 30 Days #30 tab 12/13/23 Aspirin EC [Ecotrin Low Dose] 81 mg PO DAILY 30 Days #30 tab 12/13/23 Atorvastatin [Lipitor] 10 mg PO HS 30 Days #30 tab 12/13/23 Budesonide-Formot 160-4.5 Mcg 2 puff INHALATION RT-BID 30 Days 12/13/23 [Symbicort 160-4.5 Mcg Inhaler] #1 each Cholecalciferol (Vitamin D3) 50 mcg PO DAILY 30 Days #30 tab 12/13/23 [Vitamin D3 (50 Mcg = 2000 Iu)] Famotidine [Pepcid] 20 mg PO BID PRN 30 Days #60 tab 12/13/23 Ipratropium-Albuterol Nebulize 3 ml INHALATION RT-QID PRN 30 Days 12/13/23 [Duoneb 0.5 mg-3 mg/3 ml Soln] #1 each Montelukast [Singulair] 10 mg PO HS 30 Days #30 tab 12/13/23 Sertraline [Zoloft] 100 mg PO HS 30 Days #30 tab 12/13/23 Ondansetron Odt [Zofran ODT] 4 mg PO Q8HR PRN #10 tab 01/04/24 traZODone HCL [Desyrel] 100 mg PO HS tab 02/22/24 Prochlorperazine [Compazine] 10 mg PO Q6H #15 tab 03/19/24 Allergies Allergy/AdvReac Type Severity Reaction Status Date / Time dicyclomine HCl [From Bentyl] Allergy Unknown Dyspnea Verified 04/09/24 08:31 latex Allergy Unknown Rash/Hives Verified 04/09/24 08:31 Benzoate Analogues Allergy Unknown Verified 04/09/24 08:31 nitrofurantoin Allergy Nausea Verified 04/09/24 08:31 [From Macrobid] Penicillins Allergy "[place] Verified 04/09/24 08:31 funny" adhesive AdvReac Unknown Itching Verified 04/09/24 08:31 ciprofloxacin AdvReac Unknown Nausea Verified 04/09/24 08:31 Macrolide Antibiotics AdvReac Unknown Nausea Verified 04/09/24 08:31 sulfamethoxazole AdvReac Unknown Unknown Verified 04/09/24 08:31 [From Bactrim] trimethoprim [From Bactrim] AdvReac Unknown Unknown Verified 04/09/24 08:31 diphenhydramine AdvReac Confusion Verified 04/09/24 08:31 [From Benadryl] Review of Systems ROS Statement: Those systems with pertinent positive or pertinent negative responses have been documented in the HPI. ROS Other: All systems not noted in ROS Statement are negative. Past Medical History Past Medical History: Asthma, Chest Pain / Angina, COPD, CVA/TIA, Diabetes Mellitus, GERD/Reflux, Hearing Disorder / Deafness, Hyperlipidemia, Hypertension, Liver Disease, Osteoarthritis (OA), Pneumonia, Seizure Disorder, Sleep Apnea/CPAP/BIPAP Additional Past Medical History / Comment(s): states CVA at 35 yrs old, no weakness @ this time. states seizure at 35 yrs old., DDD- back & neck pain., carpal tunnel syndrome. Has [employer] public guardian. History of Any Multi-Drug Resistant Organisms: None Reported Past Surgical History: Heart Catheterization, Orthopedic Surgery Additional Past Surgical History / Comment(s): Cysts removed, left thumb surgery, colonoscopy 08/24/2019. Skin tags removed from both eyes. Past Anesthesia/Blood Transfusion Reactions: Unable to Obtain, Motion Sickness, Postoperative Nausea & Vomiting (PONV) Past Psychological History: Anxiety, Bipolar, Depression, Schizophrenia Smoking Status: Current every day smoker Past Alcohol Use History: None Reported Past Drug Use History: None Reported - Past Family History Brother(s) Family Medical History: Diabetes Mellitus Additional Family Medical History / Comment(s): Patient has 2 brothers. One from complications from diabetes. The second is alive with diabetes. Sister(s) Family Medical History: Cancer Additional Family Medical History / Comment(s): Patient has one sister with breast cancer. Patient does not have any children. Father Family Medical History: Cancer Additional Family Medical History / Comment(s): Father in his 40s or 50s from colon cancer. Mother Family Medical History: Cancer Additional Family Medical History / Comment(s): Mother at age 68 from lung cancer. General Exam Limitations: no limitations General appearance: alert, in no apparent distress Head exam: Present: atraumatic, normocephalic Eye exam: Present: normal appearance, PERRL ENT exam: Present: mucous membranes moist Respiratory exam: Present: normal lung sounds bilaterally. Absent: respiratory distress, wheezes Cardiovascular Exam: Present: regular rate, normal rhythm GI/Abdominal exam: Present: soft. Absent: distended, tenderness, guarding, rebound, rigid Extremities exam: Present: normal inspection, normal capillary refill. Absent: pedal edema, calf tenderness Neurological exam: Present: alert, oriented X3, CN II-XII intact. Absent: motor sensory deficit Psychiatric exam: Present: flat affect Skin exam: Present: warm, dry, intact Course Vital Signs 04/09/24 08:29 Temperature 97.7 F Pulse Rate 78 Respiratory 18 Rate Blood Pressure 128/87 O2 Sat by Pulse 100 Oximetry Medical Decision Making - Medical Decision Making Was pt. sent in by a medical professional or institution (, SEAN, INCINERATOR OPERATOR, urgent care, hospital, or [facility]...) When possible be specific @ -No Did you speak to anyone other than the patient for history (EMS, parent, family, police, friend...)? What history was obtained from this source @ -No Did you review nursing and triage notes (agree or disagree)? Why? @ -I reviewed and agree with nursing and triage notes Were old charts reviewed (outside hosp., previous admission, EMS record, old EKG, old radiological studies, urgent care reports/EKG's, [facility] records)? Report findings @ -No old charts were reviewed Differential Diagnosis: Chronic pain EKG interpreted by me (3pts min.). @ -As above X-rays interpreted by me (1pt min.). @ -None done CT interpreted by me (1pt min.). @ -None done U/S interpreted by me (1pt. min.). @ -None done What testing was considered but not performed or refused? (CT, X-rays, U/S, labs)? Why? @ -None What meds were considered but not given or refused? Why? @ -None Did you discuss the management of the patient with other professionals (professionals i.e. , SEAN, INCINERATOR OPERATOR, lab, RT, psych nurse, social service assistant, jamb cutter, teacher, chief analytics officer, renal case manager)? Give summary @ -No Was smoking cessation discussed for >3mins.? @ -No Was critical care preformed (if so, how long)? @ -No Were there social determinants of health that impacted care today? How? (Homelessness, low income, unemployed, alcoholism, drug addiction, transportatio n, low edu. Level, literacy, decrease access to med. care, senior living, rehab)? @ -No Was there de-escalation of care discussed even if they declined (Discuss DNR or withdrawal of care, Hospice)? DNR status @ -No What co-morbidities impacted this encounter? (DM, HTN, Smoking, COPD, CAD, Cancer, CVA, ARF, Chemo, Hep., AIDS, mental health diagnosis, sleep apnea, morbid obesity)? @ -None Was patient admitted / discharged? Hospital course, mention meds given and route, prescriptions, significant lab abnormalities, going to OR and other pertinent info. @ -Patient well-known to this emergency department with 60 total visits this year. Patient is hemodynamically stable. He appears well-hydrated. He has no abdominal pain or tenderness. Exam is completely unremarkable. Patient is attempting to follow with the [facility] program which I think is a good idea. No emergency identified stable for discharge. Undiagnosed new problem with uncertain prognosis? @ -No Drug Therapy requiring intensive monitoring for toxicity (Heparin, Nitro, Insulin, Cardizem)? @ -No Were any procedures done? @ -No Diagnosis/symptom? @ -[Chronic pain, nausea Acute, or Chronic, or Acute on Chronic? @ -Chronic Uncomplicated (without systemic symptoms) or Complicated (systemic symptoms)? @ -Default Side effects of treatment? @ -No Exacerbation, Progression, or Severe Exacerbation? @ -No Poses a threat to life or bodily function? How? (Chest pain, [place], [place], pneumonia, PE, COPD, DKA, ARF, appy, cholecystitis, CVA, Diverticulitis, Homicidal, Suicidal, threat to staff... and all critical care pts) @ -No Disposition Clinical Impression: Chest pain syndrome Disposition: HOME SELF-CARE Condition: Fair Instructions (If sedation given, give patient instructions): Chronic Pain (ED) Is patient prescribed a controlled substance at d/c from ED?: No Referrals: Catherine Narayan MD [Primary Care Provider] - 1-2 days Time of Disposition: 08:32
== END 2024-04-09 08:38 | disposition home or self-care (01) ==
LOC: EC 08:25
CPT/HCPCS: 99283

== ENCOUNTER 2024-04-18 12:20 | Emergency (ER) | payer MEDICARE, OTHER ==
[2024-04-18 13:01] VITALS: BP 135/76; PULSE 67; RESP 17; TEMP 98.6
[2024-04-18 14:19] LABS: Glucose,Whole Blood 116 mg/dL (70-110)
--- NOTE | 2024-04-18 14:33 | ED ---
General Adult HPI - General Chief complaint: Recheck/Abnormal Lab/Rx Stated complaint: High blood sugar Time Seen by Provider: 04/18/24 13:00 Source: patient, RN notes reviewed, old records reviewed Mode of arrival: ambulatory Limitations: no limitations - History of Present Illness Initial comments: 54-year-old male who presents to the emergency department stating his sugars are high so he came to the emergency department. Patient denies chest pain difficulty breathing shortness of breath. Patient has any fever chills or cough or patient has a headache patient has numbness weakness. Patient has abdominal pain patient has nausea vomiting diarrhea. Patient states he just came in because his sugars are elevated. Patient stated he they are 400 or 500 he says he does not know which - Related Data Home Medications Medication Instructions Recorded Confirmed Nitroglycerin Sl Tabs [Nitrostat] 0.4 mg SL Q5M PRN 08/20/23 03/04/24 Insulin Glargine,Hum.rec.anlog 15 units SQ HS 12/06/23 03/04/24 [Lantus Solostar Pen] Albuterol Inhaler [Ventolin Hfa 1 - 2 puff INHALATION RT-Q6H PRN 02/25/24 03/04/24 Inhaler] Albuterol Nebulized [Ventolin 2.5 mg INHALATION RT-QID PRN 02/25/24 03/04/24 Nebulized] Empagliflozin [Jardiance] 25 mg PO DAILY 02/25/24 03/04/24 Lidocaine 5% Patch [Lidoderm 5% 1 patch TRANSDERM DAILY 02/25/24 03/04/24 Patch] Omeprazole 40 mg PO DAILY 02/25/24 03/04/24 Tamsulosin [Flomax] 0.4 mg PO BID 02/25/24 03/04/24 amLODIPine [Norvasc] 10 mg PO DAILY 02/25/24 03/04/24 hydrOXYzine pamoate [Vistaril] 50 mg PO HS PRN 02/25/24 03/04/24 Benzonatate [Tessalon Perles] 100 mg PO TID PRN 02/27/24 03/04/24 Hyoscyamine Sulfate [Levsin-Sl] 0.125 mg SL QID PRN 02/27/24 03/04/24 hydrOXYzine pamoate [Vistaril] 25 mg PO BID 03/04/24 03/04/24 Previous Rx's Medication Instructions Recorded ARIPiprazole [Abilify] 15 mg PO DAILY 30 Days #30 tab 12/13/23 Aspirin EC [Ecotrin Low Dose] 81 mg PO DAILY 30 Days #30 tab 12/13/23 Atorvastatin [Lipitor] 10 mg PO HS 30 Days #30 tab 12/13/23 Budesonide-Formot 160-4.5 Mcg 2 puff INHALATION RT-BID 30 Days 12/13/23 [Symbicort 160-4.5 Mcg Inhaler] #1 each Cholecalciferol (Vitamin D3) 50 mcg PO DAILY 30 Days #30 tab 12/13/23 [Vitamin D3 (50 Mcg = 2000 Iu)] Famotidine [Pepcid] 20 mg PO BID PRN 30 Days #60 tab 12/13/23 Ipratropium-Albuterol Nebulize 3 ml INHALATION RT-QID PRN 30 Days 12/13/23 [Duoneb 0.5 mg-3 mg/3 ml Soln] #1 each Montelukast [Singulair] 10 mg PO HS 30 Days #30 tab 12/13/23 Sertraline [Zoloft] 100 mg PO HS 30 Days #30 tab 12/13/23 Ondansetron Odt [Zofran ODT] 4 mg PO Q8HR PRN #10 tab 01/04/24 traZODone HCL [Desyrel] 100 mg PO HS tab 02/22/24 Prochlorperazine [Compazine] 10 mg PO Q6H #15 tab 03/19/24 Allergies Allergy/AdvReac Type Severity Reaction Status Date / Time dicyclomine HCl [From Bentyl] Allergy Unknown Dyspnea Verified 04/18/24 13:02 latex Allergy Unknown Rash/Hives Verified 04/18/24 13:02 Benzoate Analogues Allergy Unknown Verified 04/18/24 13:02 nitrofurantoin Allergy Nausea Verified 04/18/24 13:02 [From Macrobid] Penicillins Allergy "[place] Verified 04/18/24 13:02 funny" adhesive AdvReac Unknown Itching Verified 04/18/24 13:02 ciprofloxacin AdvReac Unknown Nausea Verified 04/18/24 13:02 Macrolide Antibiotics AdvReac Unknown Nausea Verified 04/18/24 13:02 sulfamethoxazole AdvReac Unknown Unknown Verified 04/18/24 13:02 [From Bactrim] trimethoprim [From Bactrim] AdvReac Unknown Unknown Verified 04/18/24 13:02 diphenhydramine AdvReac Confusion Verified 04/18/24 13:02 [From Benadryl] Review of Systems ROS Statement: Those systems with pertinent positive or pertinent negative responses have been documented in the HPI. ROS Other: All systems not noted in ROS Statement are negative. Past Medical History Past Medical History: Asthma, Chest Pain / Angina, COPD, CVA/TIA, Diabetes Mellitus, GERD/Reflux, Hearing Disorder / Deafness, Hyperlipidemia, Hypertension, Liver Disease, Osteoarthritis (OA), Pneumonia, Seizure Disorder, Sleep Apnea/CPAP/BIPAP Additional Past Medical History / Comment(s): states CVA at 35 yrs old, no weakness @ this time. states seizure at 35 yrs old., DDD- back & neck pain., carpal tunnel syndrome. Has [employer] public guardian. History of Any Multi-Drug Resistant Organisms: None Reported Past Surgical History: Heart Catheterization, Orthopedic Surgery Additional Past Surgical History / Comment(s): Cysts removed, left thumb surgery, colonoscopy 08/24/2019. Skin tags removed from both eyes. Past Anesthesia/Blood Transfusion Reactions: Unable to Obtain, Motion Sickness, Postoperative Nausea & Vomiting (PONV) Past Psychological History: Anxiety, Bipolar, Depression, Schizophrenia Smoking Status: Current every day smoker Past Alcohol Use History: None Reported Past Drug Use History: None Reported - Past Family History Brother(s) Family Medical History: Diabetes Mellitus Additional Family Medical History / Comment(s): Patient has 2 brothers. One from complications from diabetes. The second is alive with diabetes. Sister(s) Family Medical History: Cancer Additional Family Medical History / Comment(s): Patient has one sister with breast cancer. Patient does not have any children. Father Family Medical History: Cancer Additional Family Medical History / Comment(s): Father in his 40s or 50s from colon cancer. Mother Family Medical History: Cancer Additional Family Medical History / Comment(s): Mother at age 68 from lung cancer. General Exam - General Exam Comments Initial Comments: GENERAL: Patient is well-developed and well-nourished. Patient is nontoxic and well- hydrated and is in no acute distress. EYES: The sclera were anicteric and conjunctiva were pink and moist. Extraocular movements were intact and pupils were equal round and reactive to light. Eyelids were unremarkable. PULMONARY: Unlabored respirations. Good breath sounds bilaterally. No audible rales rhonchi or wheezing was noted. CARDIOVASCULAR: There is a regular rate and rhythm without any murmurs gallops or rubs. ABDOMEN: Soft and nontender with normal bowel sounds. No palpable organomegaly was noted. There is no palpable pulsatile mass. SKIN: Skin is clear with no lesions or rashes and otherwise unremarkable. NEUROLOGIC: Patient is alert and oriented x3. Cranial nerves II through XII are grossly intact. Motor and sensory are also intact. Normal speech, volume and content. Symmetrical smile. MUSCULOSKELETAL: Normal extremities with adequate strength and full range of motion. LYMPHATICS: No significant lymphadenopathy is noted PSYCHIATRIC: Normal psychiatric evaluation. Limitations: no limitations Course Vital Signs 04/18/24 12:59 Temperature 98.6 F Pulse Rate 67 Respiratory 17 Rate Blood Pressure 135/76 O2 Sat by Pulse 98 Oximetry Medical Decision Making - Medical Decision Making Was pt. sent in by a medical professional or institution (, PA, PROGRAMS ASSISTANT, urgent care, hospital, or penitentiary...) When possible be specific @ -No Did you speak to anyone other than the patient for history (EMS, parent, family, police, friend...)? What history was obtained from this source @ -No Did you review nursing and triage notes (agree or disagree)? Why? @ -I reviewed and agree with nursing and triage notes Were old charts reviewed (outside hosp., previous admission, EMS record, old EKG, old radiological studies, urgent care reports/EKG's, penitentiary records)? Report findings @ -No old charts were reviewed Differential Diagnosis? @ -Hyperglycemia, malingering, DKA, this is not an all-inclusive list EKG interpreted by me (3pts min.). @ -As above X-rays interpreted by me (1pt min.). @ -None done CT interpreted by me (1pt min.). @ -None done U/S interpreted by me (1pt. min.). @ -None done What testing was considered but not performed or refused? (CT, X-rays, U/S, labs)? Why? @ -None What meds were considered but not given or refused? Why? @ -None Did you discuss the management of the patient with other professionals (professionals i.e. , PA, PROGRAMS ASSISTANT, lab, RT, psych nurse, psychologist social, battery builder, teacher, placement officer, caseworker intake)? Give summary @ -No Was smoking cessation discussed for >3mins.? @ -No Was critical care preformed (if so, how long)? @ -No Were there social determinants of health that impacted care today? How? (Homelessness, low income, unemployed, alcoholism, drug addiction, transportation, low edu. Level, literacy, decrease access to med. care, alf, rehab)? @ -No Was there de-escalation of care discussed even if they declined (Discuss DNR or withdrawal of care, Hospice)? DNR status @ -No What co-morbidities impacted this encounter? (DM, HTN, Smoking, COPD, CAD, Cancer, CVA, ARF, Chemo, Hep., AIDS, mental health diagnosis, sleep apnea, morbid obesity)? @ -None Was patient admitted / discharged? Hospital couse, mention meds given and route, prescriptions, significant lab abnormalities, going to OR and other pertinent info. @ -Patient's Accu-Chek was 116. Patient will be discharged because he has no symptoms Undiagnosed new problem with uncertain prognosis? @ -No Drug Therapy requiring intensive monitoring for toxicity (Heparin, Nitro, Insulin, Cardizem)? @ -No Were any procedures done? @ -No Diagnosis/symptom? @ -Normal examination Acute, or Chronic, or Acute on Chronic? @ -Default Uncomplicated (without systemic symptoms) or Complicated (systemic symptoms)? @ -Default Side effects of treatment? @ -No Exacerbation, Progression, or Severe Exacerbation? @ -No Poses a threat to life or bodily function? How? (Chest pain, [place], [place], pneumonia, PE, COPD, DKA, ARF, appy, cholecystitis, CVA, Diverticulitis, Homicidal, Suicidal, threat to staff... and all critical care pts) @ -No - Lab Data Lab Results 04/18/24 Range/Units 14:17 POC Glucose (mg/dL) 116 H (70-110) mg/dL POC Glu Surface Supply Breathing Apparatus ID Reynaldo Reese Disposition Clinical Impression: Normal exam, Malingering Disposition: HOME SELF-CARE Condition: Good Is patient prescribed a controlled substance at d/c from ED?: No Referrals: Compa Lopez MD [Primary Care Provider] - 1-2 days Time of Disposition: 14:33
== END 2024-04-18 14:30 | disposition home or self-care (01) ==
LOC: EC 12:20
CPT/HCPCS: 36415; 99284

== ENCOUNTER 2024-04-25 01:11 | Emergency (ER) | payer MEDICARE, OTHER ==
[2024-04-25 01:15] VITALS: TEMP 97.8
[2024-04-25 01:17] LABS: Glucose,Whole Blood 205 mg/dL (70-110)
[2024-04-25] MEDS: ONDANSETRON ODT 4 MG TAB PO STA (01:53)
[2024-04-25 02:08] LABS: Appearance,Urine Clear (Clear); Bilirubin,Urine Negative (Negative); Blood,Urine Negative (Negative); Color,Urine Colorless; Glucose,Urine (UA) 4+ (Negative); Ketones,Urine Negative (Negative); Leukocyte Esterase,Urine Negative (Negative); Nitrite,Urine Negative (Negative); PH, Urine 6.5 (5.0-8.0); Protein,Urine Negative (Negative); Specific Gravity,Urine 1.014 (1.001-1.035); Urobilinogen,Urine <2.0 mg/dL (<2.0)
--- NOTE | 2024-04-25 02:18 | ED ---
General Adult HPI - General Chief complaint: Recheck/Abnormal Lab/Rx Stated complaint: High blood sugar Time Seen by Provider: 04/25/24 01:23 Source: patient Mode of arrival: ambulatory Limitations: no limitations - History of Present Illness Initial comments: 54-year-old male presenting with chief complaint of elevated blood sugar. Patient reports that earlier he felt like his blood sugar was low so he ate a piece of candy, now when he checked it after eating the candy it was 200. No vomiting. No abdominal pain. No chest pain or difficulty breathing. No fevers. No signs of distress. - Related Data Home Medications Medication Instructions Recorded Confirmed Nitroglycerin Sl Tabs [Nitrostat] 0.4 mg SL Q5M PRN 08/20/23 03/04/24 Insulin Glargine,Hum.rec.anlog 15 units SQ HS 12/06/23 03/04/24 [Lantus Solostar Pen] Albuterol Inhaler [Ventolin Hfa 1 - 2 puff INHALATION RT-Q6H PRN 02/25/24 03/04/24 Inhaler] Albuterol Nebulized [Ventolin 2.5 mg INHALATION RT-QID PRN 02/25/24 03/04/24 Nebulized] Empagliflozin [Jardiance] 25 mg PO DAILY 02/25/24 03/04/24 Lidocaine 5% Patch [Lidoderm 5% 1 patch TRANSDERM DAILY 02/25/24 03/04/24 Patch] Omeprazole 40 mg PO DAILY 02/25/24 03/04/24 Tamsulosin [Flomax] 0.4 mg PO BID 02/25/24 03/04/24 amLODIPine [Norvasc] 10 mg PO DAILY 02/25/24 03/04/24 hydrOXYzine pamoate [Vistaril] 50 mg PO HS PRN 02/25/24 03/04/24 Benzonatate [Tessalon Perles] 100 mg PO TID PRN 02/27/24 03/04/24 Hyoscyamine Sulfate [Levsin-Sl] 0.125 mg SL QID PRN 02/27/24 03/04/24 hydrOXYzine pamoate [Vistaril] 25 mg PO BID 03/04/24 03/04/24 Previous Rx's Medication Instructions Recorded ARIPiprazole [Abilify] 15 mg PO DAILY 30 Days #30 tab 12/13/23 Aspirin EC [Ecotrin Low Dose] 81 mg PO DAILY 30 Days #30 tab 12/13/23 Atorvastatin [Lipitor] 10 mg PO HS 30 Days #30 tab 12/13/23 Budesonide-Formot 160-4.5 Mcg 2 puff INHALATION RT-BID 30 Days 12/13/23 [Symbicort 160-4.5 Mcg Inhaler] #1 each Cholecalciferol (Vitamin D3) 50 mcg PO DAILY 30 Days #30 tab 12/13/23 [Vitamin D3 (50 Mcg = 2000 Iu)] Famotidine [Pepcid] 20 mg PO BID PRN 30 Days #60 tab 12/13/23 Ipratropium-Albuterol Nebulize 3 ml INHALATION RT-QID PRN 30 Days 12/13/23 [Duoneb 0.5 mg-3 mg/3 ml Soln] #1 each Montelukast [Singulair] 10 mg PO HS 30 Days #30 tab 12/13/23 Sertraline [Zoloft] 100 mg PO HS 30 Days #30 tab 12/13/23 Ondansetron Odt [Zofran ODT] 4 mg PO Q8HR PRN #10 tab 01/04/24 traZODone HCL [Desyrel] 100 mg PO HS tab 02/22/24 Prochlorperazine [Compazine] 10 mg PO Q6H #15 tab 03/19/24 Allergies Allergy/AdvReac Type Severity Reaction Status Date / Time dicyclomine HCl [From Bentyl] Allergy Unknown Dyspnea Verified 04/25/24 01:15 latex Allergy Unknown Rash/Hives Verified 04/25/24 01:15 Benzoate Analogues Allergy Unknown Verified 04/25/24 01:15 nitrofurantoin Allergy Nausea Verified 04/25/24 01:15 [From Macrobid] Penicillins Allergy "[place] Verified 04/25/24 01:15 funny" adhesive AdvReac Unknown Itching Verified 04/25/24 01:15 ciprofloxacin AdvReac Unknown Nausea Verified 04/25/24 01:15 Macrolide Antibiotics AdvReac Unknown Nausea Verified 04/25/24 01:15 sulfamethoxazole AdvReac Unknown Unknown Verified 04/25/24 01:15 [From Bactrim] trimethoprim [From Bactrim] AdvReac Unknown Unknown Verified 04/25/24 01:15 diphenhydramine AdvReac Confusion Verified 04/25/24 01:15 [From Benadryl] Review of Systems ROS Statement: Those systems with pertinent positive or pertinent negative responses have been documented in the HPI. ROS Other: All systems not noted in ROS Statement are negative. Past Medical History Past Medical History: Asthma, Chest Pain / Angina, COPD, CVA/TIA, Diabetes Mellitus, GERD/Reflux, Hearing Disorder / Deafness, Hyperlipidemia, Hypertension, Liver Disease, Osteoarthritis (OA), Pneumonia, Seizure Disorder, Sleep Apnea/CPAP/BIPAP Additional Past Medical History / Comment(s): states CVA at 35 yrs old, no weakness @ this time. states seizure at 35 yrs old., DDD- back & neck pain., carpal tunnel syndrome. Has [employer] public guardian. History of Any Multi-Drug Resistant Organisms: None Reported Past Surgical History: Heart Catheterization, Orthopedic Surgery Additional Past Surgical History / Comment(s): Cysts removed, left thumb surgery, colonoscopy 08/24/2019. Skin tags removed from both eyes. Past Anesthesia/Blood Transfusion Reactions: Unable to Obtain, Motion Sickness, Postoperative Nausea & Vomiting (PONV) Past Psychological History: Anxiety, Bipolar, Depression, Schizophrenia Smoking Status: Current every day smoker Past Alcohol Use History: None Reported Past Drug Use History: None Reported - Past Family History Brother(s) Family Medical History: Diabetes Mellitus Additional Family Medical History / Comment(s): Patient has 2 brothers. One from complications from diabetes. The second is alive with diabetes. Sister(s) Family Medical History: Cancer Additional Family Medical History / Comment(s): Patient has one sister with breast cancer. Patient does not have any children. Father Family Medical History: Cancer Additional Family Medical History / Comment(s): Father in his 40s or 50s from colon cancer. Mother Family Medical History: Cancer Additional Family Medical History / Comment(s): Mother at age 68 from lung cancer. General Exam Limitations: no limitations General appearance: alert, in no apparent distress Head exam: Present: atraumatic, normocephalic, normal inspection Eye exam: Present: normal appearance Neck exam: Present: normal inspection. Absent: meningismus Respiratory exam: Present: normal lung sounds bilaterally. Absent: respiratory distress, wheezes, rales, rhonchi, stridor Cardiovascular Exam: Present: regular rate, normal rhythm, normal heart sounds. Absent: systolic murmur, diastolic murmur, rubs, gallop, clicks GI/Abdominal exam: Present: soft. Absent: distended, tenderness, guarding, rebound, rigid Neurological exam: Present: alert, oriented X3 Psychiatric exam: Present: normal affect, normal mood Skin exam: Present: warm, dry Course Vital Signs 04/25/24 04/25/24 01:13 02:46 Temperature 97.8 F Pulse Rate 98 60 Respiratory 18 16 Rate Blood Pressure 115/72 111/69 O2 Sat by Pulse 97 96 Oximetry Medical Decision Making - Medical Decision Making Was pt. sent in by a medical professional or institution (, [facility], [employer], urgent care, hospital, or [facility]...) When possible be specific @ -No Did you speak to anyone other than the patient for history (EMS, parent, family, police, friend...)? What history was obtained from this source @ -No Did you review nursing and triage notes (agree or disagree)? Why? @ -I reviewed and agree with nursing and triage notes Were old charts reviewed (outside hosp., previous admission, EMS record, old EKG, old radiological studies, urgent care reports/EKG's, [facility] records)? Report findings @ -No old charts were reviewed Differential Diagnosis (chest pain, altered mental status, abdominal pain women, abdominal pain men, vaginal bleeding, weakness, fever, dyspnea, syncope, heada jadyn, dizziness, GI bleed, back pain, seizure, CVA, palpatations, mental health, musculoskeletal)? @ -Differential includes uncomplicated hyperglycemia, DKA, this is not an all- inclusive list EKG interpreted by me (3pts min.). @ -As above X-rays interpreted by me (1pt min.). @ -None done CT interpreted by me (1pt min.). @ -None done U/S interpreted by me (1pt. min.). @ -None done What testing was considered but not performed or refused? (CT, X-rays, U/S, labs)? Why? @ -None What meds were considered but not given or refused? Why? @ -None Did you discuss the management of the patient with other professionals (professionals i.e. , PA, [employer], lab, RT, psych nurse, drug abuse social worker, special agent group insurance, teacher, risk officer, case technician)? Give summary @ -No Was smoking cessation discussed for >3mins.? @ -No Was critical care preformed (if so, how long)? @ -No Were there social determinants of health that impacted care today? How? (Homelessness, low income, unemployed, alcoholism, drug addiction, transportation, low edu. Level, literacy, decrease access to med. care, snf, rehab)? @ -No Was there de-escalation of care discussed even if they declined (Discuss DNR or withdrawal of care, Hospice)? DNR status @ -No What co-morbidities impacted this encounter? (DM, HTN, Smoking, COPD, CAD, Cancer, CVA, ARF, Chemo, Hep., AIDS, mental health diagnosis, sleep apnea, morbid obesity)? @ -None Was patient admitted / discharged? Hospital course, mention meds given and route, prescriptions, significant lab abnormalities, going to OR and other pertinent info. @ -54-year-old male presenting with chief complaint of elevated glucose. Vital signs are stable. Glucose 205. Patient states that he ate a piece of candy earlier. Urine shows negative ketones. 4+ glucose, patient is on Jardiance. Patient is tolerating oral intake. He appears well-nourished and hydrated, he shows no signs of distress. He is educated on today's findings and discharged. Follow-up with PCP. Report back to ER with any new or worsening symptoms. Discussed return parameters and answered all questions. Patient conveyed verbal understanding and agreed to the plan. I discussed this case in detail with my attending Dr. Smith Undiagnosed new problem with uncertain prognosis? @ -No Drug Therapy requiring intensive monitoring for toxicity (Heparin, Nitro, Insulin, Cardizem)? @ -No Were any procedures done? @ -No Diagnosis/symptom? @ -Hyperglycemia Acute, or Chronic, or Acute on Chronic? @ -Acute Uncomplicated (without systemic symptoms) or Complicated (systemic symptoms)? @ -Uncomplicated Side effects of treatment? @ -No Exacerbation, Progression, or Severe Exacerbation? @ -No Poses a threat to life or bodily function? How? (Chest pain, [place], [place], pneumonia, PE, COPD, DKA, ARF, appy, cholecystitis, CVA, Diverticulitis, Homicidal, Suicidal, threat to staff... and all critical care pts) @ -Unlikely - Lab Data Lab Results 04/25/24 04/25/24 Range/Units 01:16 01:56 POC Glucose (mg/dL) 205 H (70-110) mg/dL POC Glu Channel Rebuilder ID Maral Chatman Urine Color Colorless Urine Appearance Clear (Clear) Urine pH 6.5 (5.0-8.0) Ur Specific [place] 1.014 (1.001-1.035) Urine Protein Negative (Negative) Urine Glucose (UA) 4+ H (Negative) Urine Ketones Negative (Negative) Urine Blood Negative (Negative) Urine Nitrite Negative (Negative) Urine Bilirubin Negative (Negative) Urine Urobilinogen <2.0 (<2.0) mg/dL Ur Leukocyte Esterase Negative (Negative) Disposition Clinical Impression: Hyperglycemia Disposition: HOME SELF-CARE Condition: Good Instructions (If sedation given, give patient instructions): Diabetic Hyperglycemia (ED) Additional Instructions: Follow-up with PCP. Report back to ER with any new or worsening symptoms. Is patient prescribed a controlled substance at d/c from ED?: No Referrals: None,Stated [Primary Care Provider] - 1-2 days Ramya Saul MD [STAFF PHYSICIAN] - 1-2 days Time of Disposition: 02:18
[2024-04-25 02:57] VITALS: BP 111/69; PULSE 60; RESP 16
== END 2024-04-25 02:46 | disposition home or self-care (01) ==
LOC: EC 01:11
CPT/HCPCS: 36415; 81003; 99283

== ENCOUNTER 2024-05-06 01:52 | Emergency (ER) | payer MEDICARE, OTHER ==
[2024-05-06 02:11] VITALS: RESP 16; TEMP 97.8
--- NOTE | 2024-05-06 02:42 | ED ---
Abdominal Pain HPI - General Chief Complaint: Abdominal Pain Stated Complaint: abd pain Time Seen by Provider: 05/06/24 02:40 Source: patient, RN notes reviewed Mode of arrival: wheelchair Limitations: no limitations - History of Present Illness Initial Comments: 54-year-old male presenting with urinary retention x 3 hours with associated abdominal pain. Patient states he feels as though he is constipated with a dull, nonspecific pain throughout his entire abdomen with associated nausea. States he was seen at [facility] yesterday and was told that his "fibers were low". He states he feels that he is dehydrated. Denies fever, vomiting, chest pain, shortness of breath. - Related Data Home Medications Medication Instructions Recorded Confirmed Nitroglycerin Sl Tabs [Nitrostat] 0.4 mg SL Q5M PRN 08/20/23 03/04/24 Insulin Glargine,Hum.rec.anlog 15 units SQ HS 12/06/23 03/04/24 [Lantus Solostar Pen] Albuterol Inhaler [Ventolin Hfa 1 - 2 puff INHALATION RT-Q6H PRN 02/25/24 03/04/24 Inhaler] Albuterol Nebulized [Ventolin 2.5 mg INHALATION RT-QID PRN 02/25/24 03/04/24 Nebulized] Empagliflozin [Jardiance] 25 mg PO DAILY 02/25/24 03/04/24 Lidocaine 5% Patch [Lidoderm 5% 1 patch TRANSDERM DAILY 02/25/24 03/04/24 Patch] Omeprazole 40 mg PO DAILY 02/25/24 03/04/24 Tamsulosin [Flomax] 0.4 mg PO BID 02/25/24 03/04/24 amLODIPine [Norvasc] 10 mg PO DAILY 02/25/24 03/04/24 hydrOXYzine pamoate [Vistaril] 50 mg PO HS PRN 02/25/24 03/04/24 Benzonatate [Tessalon Perles] 100 mg PO TID PRN 02/27/24 03/04/24 Hyoscyamine Sulfate [Levsin-Sl] 0.125 mg SL QID PRN 02/27/24 03/04/24 hydrOXYzine pamoate [Vistaril] 25 mg PO BID 03/04/24 03/04/24 Previous Rx's Medication Instructions Recorded ARIPiprazole [Abilify] 15 mg PO DAILY 30 Days #30 tab 12/13/23 Aspirin EC [Ecotrin Low Dose] 81 mg PO DAILY 30 Days #30 tab 12/13/23 Atorvastatin [Lipitor] 10 mg PO HS 30 Days #30 tab 12/13/23 Budesonide-Formot 160-4.5 Mcg 2 puff INHALATION RT-BID 30 Days 12/13/23 [Symbicort 160-4.5 Mcg Inhaler] #1 each Cholecalciferol (Vitamin D3) 50 mcg PO DAILY 30 Days #30 tab 12/13/23 [Vitamin D3 (50 Mcg = 2000 Iu)] Famotidine [Pepcid] 20 mg PO BID PRN 30 Days #60 tab 12/13/23 Ipratropium-Albuterol Nebulize 3 ml INHALATION RT-QID PRN 30 Days 12/13/23 [Duoneb 0.5 mg-3 mg/3 ml Soln] #1 each Montelukast [Singulair] 10 mg PO HS 30 Days #30 tab 12/13/23 Sertraline [Zoloft] 100 mg PO HS 30 Days #30 tab 12/13/23 Ondansetron Odt [Zofran ODT] 4 mg PO Q8HR PRN #10 tab 01/04/24 traZODone HCL [Desyrel] 100 mg PO HS tab 02/22/24 Prochlorperazine [Compazine] 10 mg PO Q6H #15 tab 03/19/24 Allergies Allergy/AdvReac Type Severity Reaction Status Date / Time dicyclomine HCl [From Bentyl] Allergy Unknown Dyspnea Verified 05/06/24 02:09 latex Allergy Unknown Rash/Hives Verified 05/06/24 02:09 Benzoate Analogues Allergy Unknown Verified 05/06/24 02:09 nitrofurantoin Allergy Nausea Verified 05/06/24 02:09 [From Macrobid] Penicillins Allergy "[place] Verified 05/06/24 02:09 funny" adhesive AdvReac Unknown Itching Verified 05/06/24 02:09 ciprofloxacin AdvReac Unknown Nausea Verified 05/06/24 02:09 Macrolide Antibiotics AdvReac Unknown Nausea Verified 05/06/24 02:09 sulfamethoxazole AdvReac Unknown Unknown Verified 05/06/24 02:09 [From Bactrim] trimethoprim [From Bactrim] AdvReac Unknown Unknown Verified 05/06/24 02:09 diphenhydramine AdvReac Confusion Verified 05/06/24 02:09 [From Benadryl] Review of Systems ROS Statement: Those systems with pertinent positive or pertinent negative responses have been documented in the HPI. ROS Other: All systems not noted in ROS Statement are negative. Past Medical History Past Medical History: Asthma, Chest Pain / Angina, COPD, CVA/TIA, Diabetes Mellitus, GERD/Reflux, Hearing Disorder / Deafness, Hyperlipidemia, Hypertension, Liver Disease, Osteoarthritis (OA), Pneumonia, Seizure Disorder, Sleep Apnea/CPAP/BIPAP Additional Past Medical History / Comment(s): states CVA at 35 yrs old, no weakness @ this time. states seizure at 35 yrs old., DDD- back & neck pain., car pal tunnel syndrome. Has [employer] public guardian. History of Any Multi-Drug Resistant Organisms: None Reported Past Surgical History: Heart Catheterization, Orthopedic Surgery Additional Past Surgical History / Comment(s): Cysts removed, left thumb surgery, colonoscopy 08/24/2019. Skin tags removed from both eyes. Past Anesthesia/Blood Transfusion Reactions: Unable to Obtain, Motion Sickness, Postoperative Nausea & Vomiting (PONV) Past Psychological History: Anxiety, Bipolar, Depression, Schizophrenia Smoking Status: Current every day smoker Past Alcohol Use History: None Reported Past Drug Use History: None Reported - Past Family History Brother(s) Family Medical History: Diabetes Mellitus Additional Family Medical History / Comment(s): Patient has 2 brothers. One from complications from diabetes. The second is alive with diabetes. Sister(s) Family Medical History: Cancer Additional Family Medical History / Comment(s): Patient has one sister with breast cancer. Patient does not have any children. Father Family Medical History: Cancer Additional Family Medical History / Comment(s): Father in his 40s or 50s from colon cancer. Mother Family Medical History: Cancer Additional Family Medical History / Comment(s): Mother at age 68 from lung cancer. General Exam Limitations: no limitations General appearance: alert, in no apparent distress Head exam: Present: atraumatic, normocephalic, normal inspection Eye exam: Present: normal appearance, PERRL, EOMI. Absent: scleral icterus, conjunctival injection, periorbital swelling Respiratory exam: Present: normal lung sounds bilaterally. Absent: respiratory distress, wheezes, rales, rhonchi, stridor Cardiovascular Exam: Present: regular rate, normal rhythm, normal heart sounds. Absent: systolic murmur, diastolic murmur, rubs, gallop, clicks GI/Abdominal exam: Present: soft, normal bowel sounds. Absent: distended, tenderness, guarding, rebound, rigid Back exam: Absent: CVA tenderness (R), CVA tenderness (L) Neurological exam: Present: alert, oriented X3 Psychiatric exam: Present: normal affect, normal mood Skin exam: Present: warm, dry, intact, normal color. Absent: rash Course Vital Signs 05/06/24 02:09 Temperature 97.8 F Pulse Rate 58 L Respiratory 16 Rate Blood Pressure 111/79 O2 Sat by Pulse 99 Oximetry Medical Decision Making - Medical Decision Making Was pt. sent in by a medical professional or institution (, PA, RN EXAMINER, urgent care, hospital, or prison...) When possible be specific @ -No Did you speak to anyone other than the patient for history (EMS, parent, family, police, friend...)? What history was obtained from this source @ -No Did you review nursing and triage notes (agree or disagree)? Why? @ -I reviewed and agree with nursing and triage notes Were old charts reviewed (outside hosp., previous admission, EMS record, old EKG, old radiological studies, urgent care reports/EKG's, prison records)? Report findings @ -No old charts were reviewed Differential Diagnosis (chest pain, altered mental status, abdominal pain women, abdominal pain men, vaginal bleeding, weakness, fever, dyspnea, syncope, headache, dizziness, GI bleed, back pain, seizure, CVA, palpatations, mental health, musculoskeletal)? @ -Differential Abdominal Pain Men: Appendicitis, cholecystitis, diverticulosis, ischemic bowel, pancreatitis, hepatitis, UTI, gastroenteritis, AAA, incarcerated hernia, bowel obstruction, constipation, inflammatory bowel, hepatitis, peptic ulcer disease, splenic infarction, perforated viscus, testicular torsion, this is not meant to be an all-inclusive list EKG interpreted by me (3pts min.). @ -None X-rays interpreted by me (1pt min.). @ -None done CT interpreted by me (1pt min.). @ -None done U/S interpreted by me (1pt. min.). @ -None done What testing was considered but not performed or refused? (CT, X-rays, U/S, labs)? Why? @ -None What meds were considered but not given or refused? Why? @ -None Did you discuss the management of the patient with other professionals (professionals i.e. Dr., PA, RN EXAMINER, lab, RT, psych nurse, medical social worker, cardio tech, teacher, collection officer, bilingual case manager)? Give summary @ -No Was smoking cessation discussed for >3mins.? @ -No Was critical care preformed (if so, how long)? @ -No Were there social determinants of health that impacted care today? How? (Homelessness, low income, unemployed, alcoholism, drug addiction, transportation, low edu. Level, literacy, decrease access to med. care, residential, rehab)? @ -No Was there de-escalation of care discussed even if they declined (Discuss DNR or withdrawal of care, Hospice)? DNR status @ -No What co-morbidities impacted this encounter? (DM, HTN, Smoking, COPD, CAD, Cancer, CVA, ARF, Chemo, Hep., AIDS, mental health diagnosis, sleep apnea, morbid obesity)? @ -None Was patient admitted / discharged? Hospital course, mention meds given and route, prescriptions, significant lab abnormalities, going to OR and other pe rtinent info. @ -Discharge. This is a 54-year-old male presenting with urinary retention x 3 hours with associated abdominal pain. Vital signs are within acceptable limits. Abdomen is soft and nontender. Hernandez catheter placed. Lab work including CBC, CMP, lactic acid unremarkable. Urinalysis remarkable for 3+ glucose. Results discussed with patient. Advised to follow-up with urology for catheterization removal. Patient is agreeable to plan. Return precautions discussed. Case was discussed with my ED attending Dr. Smith. Patient discharged in stable condition. Undiagnosed new problem with uncertain prognosis? @ -No Drug Therapy requiring intensive monitoring for toxicity (Heparin, Nitro, Insulin, Cardizem)? @ -No Were any procedures done? @ -No Diagnosis/symptom? @ -Urinary retention Acute, or Chronic, or Acute on Chronic? @ -Acute Uncomplicated (without systemic symptoms) or Complicated (systemic symptoms)? @ -Uncomplicated Side effects of treatment? @ -No Exacerbation, Progression, or Severe Exacerbation? @ -No Poses a threat to life or bodily function? How? (Chest pain, USA, NH, pneumonia, PE, COPD, DKA, ARF, appy, cholecystitis, CVA, Diverticulitis, Homicidal, Suici adilson, threat to staff... and all critical care pts) @ -No - Lab Data Result diagrams: 05/06/24 02:53 05/06/24 02:53 Lab Results 05/06/24 05/06/24 05/06/24 Range/Units 02:53 02:53 02:53 WBC 7.6 (3.8-10.6) k/uL RBC 5.31 (4.30-5.90) m/uL Hgb 15.4 (13.0-17.5) gm/dL Hct 45.3 (39.0-53.0) % MCV 85.3 (80.0-100.0) fL MCH 28.9 (25.0-35.0) pg MCHC 33.9 (31.0-37.0) g/dL RDW 13.9 (11.5-15.5) % Plt Count 166 (150-450) k/uL MPV 7.0 Neutrophils % 67 % Lymphocytes % 21 % Monocytes % 6 % Eosinophils % 4 % Basophils % 0 % Neutrophils # 5.1 (1.3-7.7) k/uL Lymphocytes # 1.6 (1.0-4.8) k/uL Monocytes # 0.5 (0-1.0) k/uL Eosinophils # 0.3 (0-0.7) k/uL Basophils # 0.0 (0-0.2) k/uL Sodium 137 (137-145) mmol/L Potassium 4.0 (3.5-5.1) mmol/L Chloride 108 H (98-107) mmol/L Carbon Dioxide 24 (22-30) mmol/L Anion Gap 5 mmol/L BUN 14 (9-20) mg/dL Creatinine 0.68 (0.66-1.25) mg/dL Est GFR (CKD-EPI)AfAm >90 (>60 ml/min/1.73 sqM) Est GFR (CKD-EPI)NonAf >90 (>60 ml/min/1.73 sqM) Glucose 113 H (74-99) mg/dL Plasma Lactic Acid [place] (0.7-2.0) mmol/L Calcium 9.2 (8.4-10.2) mg/dL Total Bilirubin 0.4 (0.2-1.3) mg/dL AST 25 (17-59) U/L ALT 32 (4-49) U/L Alkaline Phosphatase 80 (38-126) U/L Total Protein 6.4 (6.3-8.2) g/dL Albumin 4.2 (3.5-5.0) g/dL Urine Color Colorless Urine Appearance Clear (Clear) Urine pH 5.5 (5.0-8.0) Ur Specific [place] 1.002 (1.001-1.035) Urine Protein Negative (Negative) Urine Glucose (UA) 3+ H (Negative) Urine Ketones Negative (Negative) Urine Blood Negative (Negative) Urine Nitrite Negative (Negative) Urine Bilirubin Negative (Negative) Urine Urobilinogen <2.0 (<2.0) mg/dL Ur Leukocyte Esterase Negative (Negative) 05/06/24 Range/Units 02:53 WBC (3.8-10.6) k/uL RBC (4.30-5.90) m/uL Hgb (13.0-17.5) gm/dL Hct (39.0-53.0) % MCV (80.0-100.0) fL MCH (25.0-35.0) pg MCHC (31.0-37.0) g/dL RDW (11.5-15.5) % Plt Count (150-450) k/uL MPV Neutrophils % % Lymphocytes % % Monocytes % % Eosinophils % % Basophils % % Neutrophils # (1.3-7.7) k/uL Lymphocytes # (1.0-4.8) k/uL Monocytes # (0-1.0) k/uL Eosinophils # (0-0.7) k/uL Basophils # (0-0.2) k/uL Sodium (137-145) mmol/L Potassium (3.5-5.1) mmol/L Chloride (98-107) mmol/L Carbon Dioxide (22-30) mmol/L Anion Gap mmol/L BUN (9-20) mg/dL Creatinine (0.66-1.25) mg/dL Est GFR (CKD-EPI)AfAm (>60 ml/min/1.73 sqM) Est GFR (CKD-EPI)NonAf (>60 ml/min/1.73 sqM) Glucose (74-99) mg/dL Plasma Lactic Acid [place] 1.2 (0.7-2.0) mmol/L Calcium (8.4-10.2) mg/dL Total Bilirubin (0.2-1.3) mg/dL AST (17-59) U/L ALT (4-49) U/L Alkaline Phosphatase (38-126) U/L Total Protein (6.3-8.2) g/dL Albumin (3.5-5.0) g/dL Urine Color Urine Appearance (Clear) Urine pH (5.0-8.0) Ur Specific [place] (1.001-1.035) Urine Protein (Negative) Urine Glucose (UA) (Negative) Urine Ketones (Negative) Urine Blood (Negative) Urine Nitrite (Negative) Urine Bilirubin (Negative) Urine Urobilinogen (<2.0) mg/dL Ur Leukocyte Esterase (Negative) Disposition Clinical Impression: Urinary retention Disposition: HOME SELF-CARE Condition: Stable Instructions (If sedation given, give patient instructions): Urinary Retention in Men (ED) Additional Instructions: Follow-up with urology next week for removal of catheter. Please return to the Emergency Department if symptoms worsen or any other concerns. Is patient prescribed a controlled substance at d/c from ED?: No Referrals: None,Stated [Primary Care Provider] - 1-2 days Dylan Zafar MD [STAFF PHYSICIAN] - 1-2 days Time of Disposition: 03:36
[2024-05-06 03:02] LABS: Basophils % (A) 0 %; Eosinophils # (A) 0.3 k/uL (0-0.7); Eosinophils % (A) 4 %; HCT 45.3 % (39.0-53.0); HGB 15.4 gm/dL (13.0-17.5); Lymphocytes # (A) 1.6 k/uL (1.0-4.8); Lymphocytes % (A) 21 %; MCH 28.9 pg (25.0-35.0); MCHC 33.9 g/dL (31.0-37.0); MCV 85.3 fL (80.0-100.0); Monocytes # (A) 0.5 k/uL (0-1.0); Monocytes % (A) 6 %; Neutrophils # (A) 5.1 k/uL (1.3-7.7); Neutrophils % (A) 67 %; Platelet Count 166 k/uL (150-450); RBC 5.31 m/uL (4.30-5.90); RDW 13.9 % (11.5-15.5); WBC 7.6 k/uL (3.8-10.6)
[2024-05-06] MEDS: SODIUM CHLORIDE 0.9% 500 ML 500 ML IV STA (03:08)
[2024-05-06 03:11] LABS: ALT 32 U/L (4-49); AST 25 U/L (17-59); African American GFR (CKD) >90 (>60 ml/min/1.73 sqM); Albumin 4.2 g/dL (3.5-5.0); Alkaline Phosphatase 80 U/L (38-126); Anion Gap 5 mmol/L; Blood Urea Nitrogen 14 mg/dL (9-20); Calcium 9.2 mg/dL (8.4-10.2); Carbon Dioxide 24 mmol/L (22-30); Chloride 108 mmol/L (98-107); Glucose 113 mg/dL (74-99); Non-African American GFR(CKD) >90 (>60 ml/min/1.73 sqM); Sodium 137 mmol/L (137-145); Total Bilirubin 0.4 mg/dL (0.2-1.3); Total Protein 6.4 g/dL (6.3-8.2)
[2024-05-06 03:14] LABS: Appearance,Urine Clear (Clear); Bilirubin,Urine Negative (Negative); Blood,Urine Negative (Negative); Color,Urine Colorless; Glucose,Urine (UA) 3+ (Negative); Ketones,Urine Negative (Negative); Leukocyte Esterase,Urine Negative (Negative); Nitrite,Urine Negative (Negative); PH, Urine 5.5 (5.0-8.0); Protein,Urine Negative (Negative); Specific Gravity,Urine 1.002 (1.001-1.035); Urobilinogen,Urine <2.0 mg/dL (<2.0)
[2024-05-06] MEDS: ONDANSETRON ODT 4 MG TAB PO STA (03:41)
[2024-05-06 03:54] VITALS: BP 116/73; PULSE 56
== END 2024-05-06 03:49 | disposition home or self-care (01) ==
LOC: EC 01:52
DX: R33.9 Retention of urine, unspecified (principal); F17.200 Nicotine dependence, unspecified, uncomplicated; Z88.0 Allergy status to penicillin; Z88.1 Allergy status to other antibiotic agents; Z88.2 Allergy status to sulfonamides; Z88.8 Allergy status to other drugs, medicaments and biological substances; Z91.040 Latex allergy status; Z86.73 Personal history of transient ischemic attack (TIA), and cerebral infarction without residual deficits
CPT/HCPCS: 36415; 51798; 80053; 81003; 83605; 85025; 90471; 99284

== ENCOUNTER 2024-05-06 10:22 | Emergency (ER) | payer MEDICARE, OTHER ==
[2024-05-06 11:07] VITALS: BP 101/68; PULSE 60; RESP 20; TEMP 98.2
--- NOTE | 2024-05-06 11:24 | ED ---
Abdominal Pain HPI - General Source: patient Mode of arrival: ambulatory Limitations: no limitations - History of Present Illness MD Complaint: abdominal pain Onset/Timin -: days(s) <Tony Sommers - Last Filed: 05/06/24 11:24> <Andrea Felix - Last Filed: 05/18/24 20:49> - General Chief Complaint: Abdominal Pain Stated Complaint: abd pain Time Seen by Provider: 05/06/24 10:41 - History of Present Illness Initial Comments: Quick note: This is a 54-year-old male with history of DM and CVA presenting with abdominal bloating x 3 days. Patient was seen in this ER yesterday for similar symptoms and found to have urinary retention thus having his Hernandez catheter changed at that time. Patient states he is still having decreased urinary output despite hydration with the associated bloating. Patient also endorses nausea, dizziness and weakness. Patient states he has been taking Zofran with minimal relief. Patient states he sees Dr. Hardik Richardson is his urologist. Patient denies fever, chills, chest pain, dyspnea, diarrhea. (Tony Sommers) - Related Data Home Medications Medication Instructions Recorded Confirmed Nitroglycerin Sl Tabs [Nitrostat] 0.4 mg SL Q5M PRN 08/20/23 03/04/24 Insulin Glargine,Hum.rec.anlog 15 units SQ HS 12/06/23 03/04/24 [Lantus Solostar Pen] Albuterol Inhaler [Ventolin Hfa 1 - 2 puff INHALATION RT-Q6H PRN 02/25/24 03/04/24 Inhaler] Albuterol Nebulized [Ventolin 2.5 mg INHALATION RT-QID PRN 02/25/24 03/04/24 Nebulized] Empagliflozin [Jardiance] 25 mg PO DAILY 02/25/24 03/04/24 Lidocaine 5% Patch [Lidoderm 5% 1 patch TRANSDERM DAILY 02/25/24 03/04/24 Patch] Omeprazole 40 mg PO DAILY 02/25/24 03/04/24 Tamsulosin [Flomax] 0.4 mg PO BID 02/25/24 03/04/24 amLODIPine [Norvasc] 10 mg PO DAILY 02/25/24 03/04/24 hydrOXYzine pamoate [Vistaril] 50 mg PO HS PRN 02/25/24 03/04/24 Benzonatate [Tessalon Perles] 100 mg PO TID PRN 02/27/24 03/04/24 Hyoscyamine Sulfate [Levsin-Sl] 0.125 mg SL QID PRN 02/27/24 03/04/24 hydrOXYzine pamoate [Vistaril] 25 mg PO BID 03/04/24 03/04/24 Previous Rx's Medication Instructions Recorded ARIPiprazole [Abilify] 15 mg PO DAILY 30 Days #30 tab 12/13/23 Aspirin EC [Ecotrin Low Dose] 81 mg PO DAILY 30 Days #30 tab 12/13/23 Atorvastatin [Lipitor] 10 mg PO HS 30 Days #30 tab 12/13/23 Budesonide-Formot 160-4.5 Mcg 2 puff INHALATION RT-BID 30 Days 12/13/23 [Symbicort 160-4.5 Mcg Inhaler] #1 each Cholecalciferol (Vitamin D3) 50 mcg PO DAILY 30 Days #30 tab 12/13/23 [Vitamin D3 (50 Mcg = 2000 Iu)] Famotidine [Pepcid] 20 mg PO BID PRN 30 Days #60 tab 12/13/23 Ipratropium-Albuterol Nebulize 3 ml INHALATION RT-QID PRN 30 Days 12/13/23 [Duoneb 0.5 mg-3 mg/3 ml Soln] #1 each Montelukast [Singulair] 10 mg PO HS 30 Days #30 tab 12/13/23 Sertraline [Zoloft] 100 mg PO HS 30 Days #30 tab 12/13/23 Ondansetron Odt [Zofran ODT] 4 mg PO Q8HR PRN #10 tab 01/04/24 traZODone HCL [Desyrel] 100 mg PO HS tab 02/22/24 Prochlorperazine [Compazine] 10 mg PO Q6H #15 tab 03/19/24 Allergies Allergy/AdvReac Type Severity Reaction Status Date / Time dicyclomine HCl [From Bentyl] Allergy Unknown Dyspnea Verified 05/10/24 12:03 latex Allergy Unknown Rash/Hives Verified 05/10/24 12:03 Benzoate Analogues Allergy Unknown Verified 05/10/24 12:03 nitrofurantoin Allergy Nausea Verified 05/10/24 12:03 [From Macrobid] Penicillins Allergy "[place] Verified 05/10/24 12:03 funny" adhesive AdvReac Unknown Itching Verified 05/10/24 12:03 ciprofloxacin AdvReac Unknown Nausea Verified 05/10/24 12:03 Macrolide Antibiotics AdvReac Unknown Nausea Verified 05/10/24 12:03 sulfamethoxazole AdvReac Unknown Unknown Verified 05/10/24 12:03 [From Bactrim] trimethoprim [From Bactrim] AdvReac Unknown Unknown Verified 05/10/24 12:03 diphenhydramine AdvReac Confusion Verified 05/10/24 12:03 [From Benadryl] Review of Systems ROS Other: All systems not noted in ROS Statement are negative. <Toyn Sommers - Last Filed: 05/06/24 11:24> ROS Other: All systems not noted in ROS Statement are negative. <Andrea Felix - Last Filed: 05/18/24 20:49> ROS Statement: Those systems with pertinent positive or pertinent negative responses have been documented in the HPI. Past Medical History Past Medical History: Asthma, Chest Pain / Angina, COPD, CVA/TIA, Diabetes [place] it[place], GERD/Reflux, Hearing Disorder / Deafness, Hyperlipidemia, Hypertension, Liver Disease, Osteoarthritis (OA), Pneumonia, Seizure Disorder, Sleep Apnea/CPAP/BIPAP Additional Past Medical History / Comment(s): states CVA at 35 yrs old, no weakness @ this time. states seizure at 35 yrs old., DDD- back & neck pain., carpal tunnel syndrome. Has [facility] public guardian. History of Any Multi-Drug Resistant Organisms: None Reported Past Surgical History: Heart Catheterization, Orthopedic Surgery Additional Past Surgical History / Comment(s): Cysts removed, left thumb surgery, colonoscopy 08/24/2019. Skin tags removed from both eyes. Past Anesthesia/Blood Transfusion Reactions: Unable to Obtain, Motion Sickness, Postoperative Nausea & Vomiting (PONV) Past Psychological History: Anxiety, Bipolar, Depression, Schizophrenia Smoking Status: Current every day smoker Past Alcohol Use History: None Reported Past Drug Use History: None Reported - Past Family History Brother(s) Family Medical History: Diabetes Mellitus Additional Family Medical History / Comment(s): Patient has 2 brothers. One from complications from diabetes. The second is alive with diabetes. Sister(s) Family Medical History: Cancer Additional Family Medical History / Comment(s): Patient has one sister with breast cancer. Patient does not have any children. Father Family Medical History: Cancer Additional Family Medical History / Comment(s): Father in his 40s or 50s from colon cancer. Mother Family Medical History: Cancer Additional Family Medical History / Comment(s): Mother at age 68 from lung cancer. <Tony Sommers - Last Filed: 05/06/24 11:24> General Exam Limitations: no limitations <Tony Sommers - Last Filed: 05/06/24 11:24> - General Exam Comments Initial Comments: Visual Physical Exam Vital signs reviewed General: Well-appearing, nontoxic, no acute distress. Patient seated in wheelchair Head: Normocephalic, atraumatic Eyes: PERRLA, EOMI ENT: Airway patent Chest: Nonlabored breathing Skin: No visual rash, normal skin tone Neuro: Alert and oriented 3 Musculoskeletal: No gross abnormalities (Tony Sommers) Course Vital Signs 05/06/24 11:05 Temperature 98.2 F Pulse Rate 60 Respiratory 20 Rate Blood Pressure 101/68 O2 Sat by Pulse 97 Oximetry Medical Decision Making <Tony Sommers - Last Filed: 05/06/24 11:24> - Medical Decision Making I completed the quick note portion of this chart signed HUNTER Oneal (Tony Sommers) Disposition <Tony Sommers - Last Filed: 05/06/24 11:24> <Andrea Felix - Last Filed: 05/18/24 20:49> Clinical Impression: Abdominal pain Disposition: LEFT AGAINST MEDICAL ADVICE Referrals: None,Stated [Primary Care Provider] - 1-2 days
== END 2024-05-06 12:11 | disposition left against medical advice (07) ==
LOC: EC 10:22
DX: R10.9 Unspecified abdominal pain (principal); F17.200 Nicotine dependence, unspecified, uncomplicated; Z88.0 Allergy status to penicillin; Z88.1 Allergy status to other antibiotic agents; Z88.2 Allergy status to sulfonamides; Z88.8 Allergy status to other drugs, medicaments and biological substances; Z91.040 Latex allergy status; Z86.73 Personal history of transient ischemic attack (TIA), and cerebral infarction without residual deficits; Z53.29 Procedure and treatment not carried out because of patient's decision for other reasons
CPT/HCPCS: 99283

== ENCOUNTER 2024-05-10 11:36 | Emergency (ER) | payer MEDICARE, OTHER ==
[2024-05-10 12:06] VITALS: RESP 16
--- NOTE | 2024-05-10 12:29 | ED ---
General Adult HPI - General Chief complaint: Urogenital Stated complaint: Cath issue Time Seen by Provider: 05/10/24 12:08 Source: patient Mode of arrival: ambulatory Limitations: no limitations - History of Present Illness Initial comments: Dictation was produced using [employer] dictation software. please excuse any grammatical, word or spelling errors. Chief Complaint: 54-year-old male requesting Hernandez discontinuation History of Present Illness: Patient is a 54-year-old male well-known to emergency department for multiple visitations for myriad of complaints. Patient states he is here today because he wants his Hernandez catheter removed. States that he wants removed or he will rip it out. States that has been making urine very well. Supposed to have an appointment with urology in a few days. Patient has no other complaints The ROS documented in this emergency department record has been reviewed and confirmed by me. Those systems with pertinent positive or negative responses have been documented in the HPI. All other systems are other negative and/or noncontributory. - Related Data Home Medications Medication Instructions Recorded Confirmed Nitroglycerin Sl Tabs [Nitrostat] 0.4 mg SL Q5M PRN 08/20/23 03/04/24 Insulin Glargine,Hum.rec.anlog 15 units SQ HS 12/06/23 03/04/24 [Lantus Solostar Pen] Albuterol Inhaler [Ventolin Hfa 1 - 2 puff INHALATION RT-Q6H PRN 02/25/24 03/04/24 Inhaler] Albuterol Nebulized [Ventolin 2.5 mg INHALATION RT-QID PRN 02/25/24 03/04/24 Nebulized] Empagliflozin [Jardiance] 25 mg PO DAILY 02/25/24 03/04/24 Lidocaine 5% Patch [Lidoderm 5% 1 patch TRANSDERM DAILY 02/25/24 03/04/24 Patch] Omeprazole 40 mg PO DAILY 02/25/24 03/04/24 Tamsulosin [Flomax] 0.4 mg PO BID 02/25/24 03/04/24 amLODIPine [Norvasc] 10 mg PO DAILY 02/25/24 03/04/24 hydrOXYzine pamoate [Vistaril] 50 mg PO HS PRN 02/25/24 03/04/24 Benzonatate [Tessalon Perles] 100 mg PO TID PRN 02/27/24 03/04/24 Hyoscyamine Sulfate [Levsin-Sl] 0.125 mg SL QID PRN 02/27/24 03/04/24 hydrOXYzine pamoate [Vistaril] 25 mg PO BID 03/04/24 03/04/24 Previous Rx's Medication Instructions Recorded ARIPiprazole [Abilify] 15 mg PO DAILY 30 Days #30 tab 12/13/23 Aspirin EC [Ecotrin Low Dose] 81 mg PO DAILY 30 Days #30 tab 12/13/23 Atorvastatin [Lipitor] 10 mg PO HS 30 Days #30 tab 12/13/23 Budesonide-Formot 160-4.5 Mcg 2 puff INHALATION RT-BID 30 Days 12/13/23 [Symbicort 160-4.5 Mcg Inhaler] #1 each Cholecalciferol (Vitamin D3) 50 mcg PO DAILY 30 Days #30 tab 12/13/23 [Vitamin D3 (50 Mcg = 2000 Iu)] Famotidine [Pepcid] 20 mg PO BID PRN 30 Days #60 tab 12/13/23 Ipratropium-Albuterol Nebulize 3 ml INHALATION RT-QID PRN 30 Days 12/13/23 [Duoneb 0.5 mg-3 mg/3 ml Soln] #1 each Montelukast [Singulair] 10 mg PO HS 30 Days #30 tab 12/13/23 Sertraline [Zoloft] 100 mg PO HS 30 Days #30 tab 12/13/23 Ondansetron Odt [Zofran ODT] 4 mg PO Q8HR PRN #10 tab 01/04/24 traZODone HCL [Desyrel] 100 mg PO HS tab 02/22/24 Prochlorperazine [Compazine] 10 mg PO Q6H #15 tab 03/19/24 Allergies Allergy/AdvReac Type Severity Reaction Status Date / Time dicyclomine HCl [From Bentyl] Allergy Unknown Dyspnea Verified 05/10/24 12:03 latex Allergy Unknown Rash/Hives Verified 05/10/24 12:03 Benzoate Analogues Allergy Unknown Verified 05/10/24 12:03 nitrofurantoin Allergy Nausea Verified 05/10/24 12:03 [From Macrobid] Penicillins Allergy "[place] Verified 05/10/24 12:03 funny" adhesive AdvReac Unknown Itching Verified 05/10/24 12:03 ciprofloxacin AdvReac Unknown Nausea Verified 05/10/24 12:03 Macrolide Antibiotics AdvReac Unknown Nausea Verified 05/10/24 12:03 sulfamethoxazole AdvReac Unknown Unknown Verified 05/10/24 12:03 [From Bactrim] trimethoprim [From Bactrim] AdvReac Unknown Unknown Verified 05/10/24 12:03 diphenhydramine AdvReac Confusion Verified 05/10/24 12:03 [From Benadryl] Review of Systems ROS Statement: Those systems with pertinent positive or pertinent negative responses have been documented in the HPI. ROS Other: All systems not noted in ROS Statement are negative. Past Medical History Past Medical History: Asthma, Chest Pain / Angina, COPD, CVA/TIA, Diabetes Mellitus, GERD/Reflux, Hearing Disorder / Deafness, Hyperlipidemia, Hypertension, Liver Disease, Osteoarthritis (OA), Pneumonia, Seizure Disorder, Sleep Apnea/CPAP/BIPAP Additional Past Medical History / Comment(s): states CVA at 35 yrs old, no weakness @ this time. states seizure at 35 yrs old., DDD- back & neck pain., carpal tunnel syndrome. Has [facility] public guardian. History of Any Multi-Drug Resistant Organisms: None Reported Past Surgical History: Heart Catheterization, Orthopedic Surgery Additional Past Surgical History / Comment(s): Cysts removed, left thumb surgery, colonoscopy 08/24/2019. Skin tags removed from both eyes. Past Anesthesia/Blood Transfusion Reactions: Unable to Obtain, Motion Sickness, Postoperative Nausea & Vomiting (PONV) Past Psychological History: Anxiety, Bipolar, Depression, Schizophrenia Smoking Status: Current every day smoker Past Alcohol Use History: None Reported Past Drug Use History: None Reported - Past Family History Brother(s) Family Medical History: Diabetes Mellitus Additional Family Medical History / Comment(s): Patient has 2 brothers. One from complications from diabetes. The second is alive with diabetes. Sister(s) Family Medical History: Cancer Additional Family Medical History / Comment(s): Patient has one sister with breast cancer. Patient does not have any children. Father Family Medical History: Cancer Additional Family Medical History / Comment(s): Father in his 40s or 50s from colon cancer. Mother Family Medical History: Cancer Additional Family Medical History / Comment(s): Mother at age 68 from lung cancer. General Exam - General Exam Comments Initial Comments: General: Well-appearing, nontoxic, no acute distress. Head: Normocephalic, atraumatic Eyes: PERRLA, EOMI ENT: Airway patent Chest: Nonlabored breathing Skin: No visual rash, normal skin tone Neuro: Alert and oriented 3 Musculoskeletal: No gross abnormalities Limitations: no limitations Course Vital Signs 05/10/24 12:01 Temperature 97.7 F Pulse Rate 65 Respiratory 16 Rate Blood Pressure 101/66 O2 Sat by Pulse 96 Oximetry Medical Decision Making - Medical Decision Making Was pt. sent in by a medical professional or institution (, PA, BULL BUCKER, urgent care, hospital, or correction...) When possible be specific @ -No Did you speak to anyone other than the patient for history (EMS, parent, family, police, friend...)? What history was obtained from this source @ -No Did you review nursing and triage notes (agree or disagree)? Why? @ -I reviewed and agree with nursing and triage notes Were old charts reviewed (outside hosp., previous admission, EMS record, old EKG, old radiological studies, urgent care reports/EKG's, correction records)? Report findings @ -No old charts were reviewed Differential Diagnosis (chest pain, altered mental status, abdominal pain women, abdominal pain men, vaginal bleeding, musculoskeletal, weakness, fever, dyspnea, syncope, headache, dizziness, GI bleed, back pain, seizure, CVA, palpatations, mental health)? @ -Not applicable EKG interpreted by me (3pts min.). @ -None done X-rays interpreted by me (1pt min.). @ -None done CT interpreted by me (1pt min.). @ -None done U/S interpreted by me (1pt. min.). @ -None done What testing was considered but not performed or refused? (CT, X-rays, U/S, labs)? Why? @ -None What meds were considered but not given or refused? Why? @ -None Was smoking cessation discussed for >3mins.? @ -No Were there social determinants of health that impacted care today? How? (Homelessness, low income, unemployed, alcoholism, drug addiction, transportation, low edu. Level, literacy, decrease access to med. care, fdc, rehab)? @ -No Was there de-escalation of care discussed even if they declined (Discuss DNR or withdrawal of care, Hospice)? DNR status @ -No What co-morbidities impacted this encounter? (DM, HTN, Smoking, COPD, CAD, Cancer, CVA, ARF, Chemo, Hep., AIDS, mental health diagnosis, sleep apnea, morbid obesity)? @ -None Was patient admitted / discharged? Hospital course, mention meds given and route, prescriptions, significant lab abnormalities, going to OR and other pertinent info. @ -54-year-old male demanding his Hernandez catheter be removed. Vital signs stable. Patient well-appearing. Urine gross specimen and Hernandez catheter reservoir shows clear yellow urine without any debris. No blood or cloudiness. Patient well-appearing. Patient not sure why the Hernandez catheter is placed he wants to try and urinate on his own. Patient understands that if we remove the Hernandez and he does not urinate in 4 hours that he should return to the emergency department for the Hernandez to be replaced. Patient understands the risks of his decisions. Patient discharged Did you discuss the management of the patient with other professionals (professionals i.e. , PA, BULL BUCKER, lab, RT, psych nurse, social insurance specialist, registered travel nurse, teacher, combatant diver officer, window caser)? Give summary @ -No Was critical care preformed (if so, how long)? @ -No Undiagnosed new problem with uncertain prognosis? @ -No Drug Therapy requiring intensive monitoring for toxicity (Heparin, Nitro, Insulin, Cardizem)? @ -No Were any procedures done? @ -No Diagnosis/symptom? Acute, or Chronic, or Acute on Chronic? Uncomplicated (without systemic symptoms) or Complicated (systemic symptoms)? @ -Hernandez catheter removal Side effects of treatment? @ -No Exacerbation, Progression, or Severe Exacerbation? @ -No Poses a threat to life or bodily function? How? (Chest pain, USA, [place], pneumonia, PE, COPD, DKA, ARF, appy, cholecystitis, CVA, Diverticulitis, Homicidal, Suicidal, threat to staff... and all critical care pts) @ -No Disposition Clinical Impression: Displacement of Hernandez catheter Disposition: HOME SELF-CARE Condition: Good Instructions (If sedation given, give patient instructions): Hernandez Catheter Removal (DC) Additional Instructions: return to emergency department if you are unable to urinate in 4 hours. Is patient prescribed a controlled substance at d/c from ED?: No Referrals: Ethan Horan MD [STAFF PHYSICIAN] - 1-2 days Time of Disposition: 12:28
[2024-05-10 12:48] VITALS: BP 105/69; PULSE 67; TEMP 97.9
== END 2024-05-10 12:47 | disposition home or self-care (01) ==
LOC: EC 11:36
DX: T83.028A Displacement of other urinary catheter, initial encounter (principal); F17.200 Nicotine dependence, unspecified, uncomplicated; Z88.8 Allergy status to other drugs, medicaments and biological substances; Z91.040 Latex allergy status; Z88.1 Allergy status to other antibiotic agents; Z88.0 Allergy status to penicillin; Z88.2 Allergy status to sulfonamides
CPT/HCPCS: 99283

== ENCOUNTER 2024-05-26 10:31 | Emergency (ER) | payer MEDICAID, MEDICARE ==
[2024-05-26 10:35] VITALS: BP 136/79; PULSE 72; RESP 20; TEMP 97.4
--- NOTE | 2024-05-26 10:47 | ED ---
Recheck HPI - General Chief Complaint: Chest Pain Stated Complaint: Chest Pain Time Seen by Provider: 05/26/24 10:39 Source: patient, RN notes reviewed, old records reviewed Mode of arrival: ambulatory Limitations: no limitations - History of Present Illness Initial Comments: This is a 54-year-old male to the ER for evaluation, patient well-known to this ER for evaluation of underlying developmental delay coming in for some anxiety depression not feeling well and concern for unable to get his medications. Patient does admit to anxiety due to this here in the ER MD Complaint: medication refill request -: days(s) Returns Today for: request for prescription Symptoms Since Prior Visit: no new symptoms Associated Symptoms: none Treatments Prior to Arrival: other (0) - Related Data Home Medications Medication Instructions Recorded Confirmed Nitroglycerin Sl Tabs [Nitrostat] 0.4 mg SL Q5M PRN 08/20/23 03/04/24 Insulin Glargine,Hum.rec.anlog 15 units SQ HS 12/06/23 03/04/24 [Lantus Solostar Pen] Albuterol Inhaler [Ventolin Hfa 1 - 2 puff INHALATION RT-Q6H PRN 02/25/24 03/04/24 Inhaler] Albuterol Nebulized [Ventolin 2.5 mg INHALATION RT-QID PRN 02/25/24 03/04/24 Nebulized] Empagliflozin [Jardiance] 25 mg PO DAILY 02/25/24 03/04/24 Lidocaine 5% Patch [Lidoderm 5% 1 patch TRANSDERM DAILY 02/25/24 03/04/24 Patch] Omeprazole 40 mg PO DAILY 02/25/24 03/04/24 Tamsulosin [Flomax] 0.4 mg PO BID 02/25/24 03/04/24 amLODIPine [Norvasc] 10 mg PO DAILY 02/25/24 03/04/24 hydrOXYzine pamoate [Vistaril] 50 mg PO HS PRN 02/25/24 03/04/24 Benzonatate [Tessalon Perles] 100 mg PO TID PRN 02/27/24 03/04/24 Hyoscyamine Sulfate [Levsin-Sl] 0.125 mg SL QID PRN 02/27/24 03/04/24 hydrOXYzine pamoate [Vistaril] 25 mg PO BID 03/04/24 03/04/24 Previous Rx's Medication Instructions Recorded ARIPiprazole [Abilify] 15 mg PO DAILY 30 Days #30 tab 12/13/23 Aspirin EC [Ecotrin Low Dose] 81 mg PO DAILY 30 Days #30 tab 12/13/23 Atorvastatin [Lipitor] 10 mg PO HS 30 Days #30 tab 12/13/23 Budesonide-Formot 160-4.5 Mcg 2 puff INHALATION RT-BID 30 Days 12/13/23 [Symbicort 160-4.5 Mcg Inhaler] #1 each Cholecalciferol (Vitamin D3) 50 mcg PO DAILY 30 Days #30 tab 12/13/23 [Vitamin D3 (50 Mcg = 2000 Iu)] Famotidine [Pepcid] 20 mg PO BID PRN 30 Days #60 tab 12/13/23 Ipratropium-Albuterol Nebulize 3 ml INHALATION RT-QID PRN 30 Days 12/13/23 [Duoneb 0.5 mg-3 mg/3 ml Soln] #1 each Montelukast [Singulair] 10 mg PO HS 30 Days #30 tab 12/13/23 Sertraline [Zoloft] 100 mg PO HS 30 Days #30 tab 12/13/23 Ondansetron Odt [Zofran ODT] 4 mg PO Q8HR PRN #10 tab 01/04/24 traZODone HCL [Desyrel] 100 mg PO HS tab 02/22/24 Prochlorperazine [Compazine] 10 mg PO Q6H #15 tab 03/19/24 Allergies Allergy/AdvReac Type Severity Reaction Status Date / Time dicyclomine HCl [From Bentyl] Allergy Unknown Dyspnea Verified 05/26/24 10:32 latex Allergy Unknown Rash/Hives Verified 05/26/24 10:32 Benzoate Analogues Allergy Unknown Verified 05/26/24 10:32 nitrofurantoin Allergy Nausea Verified 05/26/24 10:32 [From Macrobid] Penicillins Allergy "[place] Verified 05/26/24 10:32 funny" adhesive AdvReac Unknown Itching Verified 05/26/24 10:32 ciprofloxacin AdvReac Unknown Nausea Verified 05/26/24 10:32 Macrolide Antibiotics AdvReac Unknown Nausea Verified 05/26/24 10:32 sulfamethoxazole AdvReac Unknown Unknown Verified 05/26/24 10:32 [From Bactrim] trimethoprim [From Bactrim] AdvReac Unknown Unknown Verified 05/26/24 10:32 diphenhydramine AdvReac Confusion Verified 05/26/24 10:32 [From Benadryl] Review of Systems ROS Statement: Those systems with pertinent positive or pertinent negative responses have been documented in the HPI. ROS Other: All systems not noted in ROS Statement are negative. Past Medical History Past Medical History: Asthma, Chest Pain / Angina, COPD, CVA/TIA, Diabetes Mellitus, GERD/Reflux, Hearing Disorder / Deafness, Hyperlipidemia, Hypertension, Liver Disease, Osteoarthritis (OA), Pneumonia, Seizure Disorder, Sleep Apnea/CPAP/BIPAP Additional Past Medical History / Comment(s): states CVA at 35 yrs old, no weakness @ this time. states seizure at 35 yrs old., DDD- back & neck pain., carpal tunnel syndrome. Has [facility] public guardian. History of Any Multi-Drug Resistant Organisms: None Reported Past Surgical History: Heart Catheterization, Orthopedic Surgery Additional Past Surgical History / Comment(s): Cysts removed, left thumb surgery, colonoscopy 08/24/2019. Skin tags removed from both eyes. Past Anesthesia/Blood Transfusion Reactions: Unable to Obtain, Motion Sickness, Postoperative Nausea & Vomiting (PONV) Past Psychological History: Anxiety, Bipolar, Depression, Schizophrenia Smoking Status: Current every day smoker Past Alcohol Use History: None Reported Past Drug Use History: None Reported - Past Family History Brother(s) Family Medical History: Diabetes Mellitus Additional Family Medical History / Comment(s): Patient has 2 brothers. One from complications from diabetes. The second is alive with diabetes. Sister(s) Family Medical History: Cancer Additional Family Medical History / Comment(s): Patient has one sister with breast cancer. Patient does not have any children. Father Family Medical History: Cancer Additional Family Medical History / Comment(s): Father in his 40s or 50s from colon cancer. Mother Family Medical History: Cancer Additional Family Medical History / Comment(s): Mother at age 68 from lung cancer. General Exam Limitations: no limitations General appearance: alert, in no apparent distress Head exam: Present: atraumatic, normocephalic, normal inspection Eye exam: Present: normal appearance, PERRL, EOMI. Absent: scleral icterus, conjunctival injection, periorbital swelling ENT exam: Present: normal exam, mucous membranes moist Neck exam: Present: normal inspection. Absent: tenderness, meningismus, lymphadenopathy Respiratory exam: Present: normal lung sounds bilaterally. Absent: respiratory distress, wheezes, rales, rhonchi, stridor Cardiovascular Exam: Present: regular rate, normal rhythm, normal heart sounds. Absent: systolic murmur, diastolic murmur, rubs, gallop, clicks GI/Abdominal exam: Present: soft, normal bowel sounds. Absent: distended, tenderness, guarding, rebound, rigid Extremities exam: Present: normal inspection, full ROM, normal capillary refill. Absent: tenderness, pedal edema, joint swelling, calf tenderness Back exam: Present: normal inspection Neurological exam: Present: alert, oriented X3, CN II-XII intact Psychiatric exam: Present: normal affect, normal mood Skin exam: Present: warm, dry, intact, normal color. Absent: rash Course Vital Signs 05/26/24 10:33 Temperature 97.4 F L Pulse Rate 72 Respiratory 20 Rate Blood Pressure 136/79 O2 Sat by Pulse 99 Oximetry - Reevaluation(s) Reevaluation #1: Medical records reviewed Reevaluation #2: Patient symptoms unchanged, asymptomatic currently Reevaluation #3: Patient informed of results and questions answered Reevaluation #4: Was pt. sent in by a medical professional or institution ([facility], WET MACHINE TENDER, urgent care, hospital, or shelter...) When possible be specific @ -no Did you speak to anyone other than the patient for history (EMS, parent, family, police, friend...)? What history was obtained from this source @ -no Did you review nursing and triage notes (agree or disagree)? Why? @ -agree Are old charts reviewed (outside hosp., previous admission, EMS record, old EKG, old radiological studies, urgent care reports/EKG's, shelter records)? Report findings @ -yes Differential Diagnosis (chest pain, altered mental status, abdominal pain women, abdominal pain men, vaginal bleeding, weakness, fever, dyspnea, syncope, headache, dizziness, GI bleed, back pain, seizure, CVA, palpatations, mental health, musculoskeletal)? @ -prior EKG interpreted by me (3pts min.). @ -no X-rays interpreted by me (1pt min.). @ -no CT interpreted by me (1pt min.). @ -no U/S interpreted by me (1pt. min.). @ -no What testing was considered but not performed or refused? (CT, X-rays, U/S, labs)? Why? @ -none What meds were considered but not given or refused? Why? @ -none Did you discuss the management of the patient with other professionals (professionals i.e. , PA, WET MACHINE TENDER, lab, RT, psych nurse, social media executive, tennis instructor, teacher, radio officer, catalytic case operator)? Give summary @ -no Was smoking cessation discussed for >3mins.? @ -no Was critical care preformed (if so, how long)? @ -no Were there social determinants of health that impacted care today? How? (Homelessness, low income, unemployed, alcoholism, drug addiction, transportation, low edu. Level, literacy, decrease access to med. care, assisted, rehab)? @ -none Was there de-escalation of care discussed even if they declined (Discuss DNR or withdrawal of care, Hospice)? DNR status @ -no What co-morbidities impacted this encounter? (DM, HTN, Smoking, COPD, CAD, Cancer, CVA, ARF, Chemo, Hep., AIDS, mental health diagnosis, sleep apnea, morbid obesity)? @ -none Was patient admitted / discharged? Hospital course, mention meds given and route, prescriptions, significant lab abnormalities, going to OR and other pertinent info. @ - 54-year-old male well-known to this ER for anxiety today. Patient is in no acute distress not homicidal or suicidal and will be discharged home Discharged Undiagnosed new problem with uncertain prognosis? @ -no Drug Therapy requiring intensive monitoring for toxicity (Heparin, Nitro, Insulin, Cardizem)? @ -no Were any procedures done? @ -no Diagnosis/symptom? @ -Acute anxiety Acute, or Chronic, or Acute on Chronic? @ -Acute Uncomplicated (without systemic symptoms) or Complicated (systemic symptoms)? @ -Complicated Side effects of treatment? @ -no Exacerbation, Progression, or Severe Exacerbation? @ -exacerbation Poses a threat to life or bodily function? How? (Chest pain, [place], [place], pneumonia, PE, COPD, DKA, ARF, appy, cholecystitis, CVA, Diverticulitis, Homicidal, Suicidal, threat to staff... and all critical care pts) @ -no Reevaluation #5: Differential Weakness: Hypoglycemia, shock, sepsis, hyponatremia, anemia, infection, [place], ETOH, adverse medicine reaction, overdose, stroke, this is not meant to be an all-inclusive list. Medical Decision Making - Medical Decision Making 54-year-old male well-known to this ER for anxiety today. Patient is in no acute distress not homicidal or suicidal and will be discharged home Disposition Clinical Impression: Acute anxiety Disposition: HOME SELF-CARE Condition: Fair Instructions (If sedation given, give patient instructions): Anxiety (ED) Is patient prescribed a controlled substance at d/c from ED?: No Referrals: None,Stated [Primary Care Provider] - 1-2 days Time of Disposition: 10:45
[2024-05-26] MEDS: LORazepam 1 MG TAB PO STA (10:53)
[2024-05-26] MEDS: ONDANSETRON 4 MG TAB PO STA (10:53)
== END 2024-05-26 10:55 | disposition home or self-care (01) ==
LOC: EC 10:31
DX: F41.9 Anxiety disorder, unspecified (principal); F17.200 Nicotine dependence, unspecified, uncomplicated; Z88.8 Allergy status to other drugs, medicaments and biological substances; Z88.2 Allergy status to sulfonamides; Z88.1 Allergy status to other antibiotic agents; Z88.0 Allergy status to penicillin; Z91.040 Latex allergy status; Z91.09 Other allergy status, other than to drugs and biological substances
CPT/HCPCS: 99284

== ENCOUNTER 2024-06-18 11:27 | Emergency (ER) | payer MEDICARE ==
--- NOTE | 2024-06-18 11:42 | ED ---
Skin/Abscess/FB HPI - General Chief complaint: Skin/Abscess/Foreign Body Stated complaint: ingrown toenail/R foot big toe Time Seen by Provider: 06/18/24 11:29 Source: patient, RN notes reviewed Mode of arrival: wheelchair Limitations: no limitations - History of Present Illness Initial comments: 4-year-old male presents emergency department complaining of toenail pain, toe pain. Patient has been going [facility] he states that [facility] is aware of this and they are scheduling follow-up with podiatry - Related Data Home Medications Medication Instructions Recorded Confirmed Nitroglycerin Sl Tabs [Nitrostat] 0.4 mg SL Q5M PRN 08/20/23 03/04/24 Insulin Glargine,Hum.rec.anlog 15 units SQ HS 12/06/23 03/04/24 [Lantus Solostar Pen] Albuterol Inhaler [Ventolin Hfa 1 - 2 puff INHALATION RT-Q6H PRN 02/25/24 03/04/24 Inhaler] Albuterol Nebulized [Ventolin 2.5 mg INHALATION RT-QID PRN 02/25/24 03/04/24 Nebulized] Empagliflozin [Jardiance] 25 mg PO DAILY 02/25/24 03/04/24 Lidocaine 5% Patch [Lidoderm 5% 1 patch TRANSDERM DAILY 02/25/24 03/04/24 Patch] Omeprazole 40 mg PO DAILY 02/25/24 03/04/24 Tamsulosin [Flomax] 0.4 mg PO BID 02/25/24 03/04/24 amLODIPine [Norvasc] 10 mg PO DAILY 02/25/24 03/04/24 hydrOXYzine pamoate [Vistaril] 50 mg PO HS PRN 02/25/24 03/04/24 Benzonatate [Tessalon Perles] 100 mg PO TID PRN 02/27/24 03/04/24 Hyoscyamine Sulfate [Levsin-Sl] 0.125 mg SL QID PRN 02/27/24 03/04/24 hydrOXYzine pamoate [Vistaril] 25 mg PO BID 03/04/24 03/04/24 Previous Rx's Medication Instructions Recorded ARIPiprazole [Abilify] 15 mg PO DAILY 30 Days #30 tab 12/13/23 Aspirin EC [Ecotrin Low Dose] 81 mg PO DAILY 30 Days #30 tab 12/13/23 Atorvastatin [Lipitor] 10 mg PO HS 30 Days #30 tab 12/13/23 Budesonide-Formot 160-4.5 Mcg 2 puff INHALATION RT-BID 30 Days 12/13/23 [Symbicort 160-4.5 Mcg Inhaler] #1 each Cholecalciferol (Vitamin D3) 50 mcg PO DAILY 30 Days #30 tab 12/13/23 [Vitamin D3 (50 Mcg = 2000 Iu)] Famotidine [Pepcid] 20 mg PO BID PRN 30 Days #60 tab 12/13/23 Ipratropium-Albuterol Nebulize 3 ml INHALATION RT-QID PRN 30 Days 12/13/23 [Duoneb 0.5 mg-3 mg/3 ml Soln] #1 each Montelukast [Singulair] 10 mg PO HS 30 Days #30 tab 12/13/23 Sertraline [Zoloft] 100 mg PO HS 30 Days #30 tab 12/13/23 Ondansetron Odt [Zofran ODT] 4 mg PO Q8HR PRN #10 tab 01/04/24 traZODone HCL [Desyrel] 100 mg PO HS tab 02/22/24 Prochlorperazine [Compazine] 10 mg PO Q6H #15 tab 03/19/24 Allergies Allergy/AdvReac Type Severity Reaction Status Date / Time dicyclomine HCl [From Bentyl] Allergy Unknown Dyspnea Verified 06/18/24 11:29 latex Allergy Unknown Rash/Hives Verified 06/18/24 11:29 Benzoate Analogues Allergy Unknown Verified 06/18/24 11:29 nitrofurantoin Allergy Nausea Verified 06/18/24 11:29 [From Macrobid] Penicillins Allergy "[place] Verified 06/18/24 11:29 funny" adhesive AdvReac Unknown Itching Verified 06/18/24 11:29 ciprofloxacin AdvReac Unknown Nausea Verified 06/18/24 11:29 Macrolide Antibiotics AdvReac Unknown Nausea Verified 06/18/24 11:29 sulfamethoxazole AdvReac Unknown Unknown Verified 06/18/24 11:29 [From Bactrim] trimethoprim [From Bactrim] AdvReac Unknown Unknown Verified 06/18/24 11:29 diphenhydramine AdvReac Confusion Verified 06/18/24 11:29 [From Benadryl] Review of Systems ROS Statement: Those systems with pertinent positive or pertinent negative responses have been documented in the HPI. ROS Other: All systems not noted in ROS Statement are negative. Past Medical History Past Medical History: Asthma, Chest Pain / Angina, COPD, CVA/TIA, Diabetes Mellitus, GERD/Reflux, Hearing Disorder / Deafness, Hyperlipidemia, Hypertension, Liver Disease, Osteoarthritis (OA), Pneumonia, Seizure Disorder, Sleep Apnea/CPAP/BIPAP Additional Past Medical History / Comment(s): states CVA at 35 yrs old, no weakness @ this time. states seizure at 35 yrs old., DDD- back & neck pain., carpal tunnel syndrome. Has SCS public guardian. History of Any Multi-Drug Resistant Organisms: None Reported Past Surgical History: Heart Catheterization, Orthopedic Surgery Additional Past Surgical History / Comment(s): Cysts removed, left thumb surgery, colonoscopy 08/24/2019. Skin tags removed from both eyes. Past Anesthesia/Blood Transfusion Reactions: Unable to Obtain, Motion Sickness, Postoperative Nausea & Vomiting (PONV) Past Psychological History: Anxiety, Bipolar, Depression, Schizophrenia Smoking Status: Current every day smoker, Vaper Past Alcohol Use History: None Reported Past Drug Use History: None Reported - Past Family History Brother(s) Family Medical History: Diabetes Mellitus Additional Family Medical History / Comment(s): Patient has 2 brothers. One from complications from diabetes. The second is alive with diabetes. Sister(s) Family Medical History: Cancer Additional Family Medical History / Comment(s): Patient has one sister with breast cancer. Patient does not have any children. Father Family Medical History: Cancer Additional Family Medical History / Comment(s): Father in his 40s or 50s from colon cancer. Mother Family Medical History: Cancer Additional Family Medical History / Comment(s): Mother at age 68 from lung cancer. General Exam Limitations: no limitations General appearance: alert, in no apparent distress Head exam: Present: atraumatic, normocephalic, normal inspection Respiratory exam: Present: normal lung sounds bilaterally. Absent: respiratory distress, wheezes, rales, rhonchi, stridor Cardiovascular Exam: Present: regular rate, normal rhythm, normal heart sounds. Absent: systolic murmur, diastolic murmur, rubs, gallop, clicks Extremities exam: Present: other (Large ingrown toenail without erythema no purulent drainage) Course Vital Signs 06/18/24 11:29 Temperature 98.6 F Pulse Rate 77 Respiratory 18 Rate Blood Pressure 114/75 O2 Sat by Pulse 98 Oximetry Medical Decision Making - Medical Decision Making Was pt. sent in by a medical professional or institution (, SEAN, GAMBLING CASHIER, urgent care, hospital, or [place] health care facility...) When possible be specific @ -[No] Did you speak to anyone other than the patient for history (EMS, parent, family, police, friend...)? What history was obtained from this source @ -[No] Did you review nursing and triage notes (agree or disagree)? Why? @ -[I reviewed and agree with nursing and triage notes] Were old charts reviewed (outside hosp., previous admission, EMS record, old EKG, old radiological studies, urgent care reports/EKG's, [place] health care facility records)? Report findings @ -No old charts were reviewed Differential Diagnosis (chest pain, altered mental status, abdominal pain women, abdominal pain men, vaginal bleeding, weakness, fever, dyspnea, syncope, headache, dizziness, GI bleed, back pain, seizure, CVA, palpatations, mental health, musculoskeletal)? @ -Toe pain, neuropathy, ingrown toenail EKG interpreted by me (3pts min.). @ -None X-rays interpreted by me (1pt min.). @ -None done CT interpreted by me (1pt min.). @ -None done U/S interpreted by me (1pt. min.). @ -None done What testing was considered but not performed or refused? (CT, X-rays, U/S, labs)? Why? @ -None What meds were considered but not given or refused? Why? @ -None Did you discuss the management of the patient with other professionals (professionals i.e. SEAN [place], GAMBLING CASHIER, lab, RT, psych nurse, belt worker, carton filling machine operator, teacher, inshore undersea warfare officer, assistant case manager)? Give summary @ -No Was smoking cessation discussed for >3mins.? @ -No Was critical care preformed (if so, how long)? @ -No Were there social determinants of health that impacted care today? How? (Homelessness, low income, unemployed, alcoholism, drug addiction, transportation, low edu. Level, literacy, decrease access to med. care, senior living, rehab)? @ -No Was there de-escalation of care discussed even if they declined (Discuss DNR or withdrawal of care, Hospice)? DNR status @ -No What co-morbidities impacted this encounter? (DM, HTN, Smoking, COPD, CAD, Cancer, CVA, ARF, Chemo, Hep., AIDS, mental health diagnosis, sleep apnea, morbid obesity)? @ -None Was patient admitted / discharged? Hospital course, mention meds given and route, prescriptions, significant lab abnormalities, going to OR and other pertinent info. @ -Charge patient has no signs of infection patient has ingrown toenail and PCP is working on follow-up. Undiagnosed new problem with uncertain prognosis? @ -No Drug Therapy requiring intensive monitoring for toxicity (Heparin, Nitro, Insulin, Cardizem)? @ -No Were any procedures done? @ -No Diagnosis/symptom? @ -toe pain ingrown toenail Acute, or Chronic, or Acute on Chronic? @ -Acute Uncomplicated (without systemic symptoms) or Complicated (systemic symptoms)? @Uncomplicated Side effects of treatment? @ -No Exacerbation, Progression, or Severe Exacerbation? @ -No Poses a threat to life or bodily function? How? (Chest pain, [place], [place], pneumonia, PE, COPD, DKA, ARF, appy, cholecystitis, CVA, Diverticulitis, Homicidal, Suicidal, threat to staff... and all critical care pts) @ -No Disposition Clinical Impression: Toe pain, Ingrown toenail Disposition: HOME SELF-CARE Condition: Stable Instructions (If sedation given, give patient instructions): Ingrown Nail (ED) Additional Instructions: Please return to the Emergency Department if symptoms worsen or any other concerns. Is patient prescribed a controlled substance at d/c from ED?: No Referrals: Nonstaff,Physician [Primary Care Provider] - 1-2 days Time of Disposition: 11:42
[2024-06-18] MEDS: KETOROLAC 15 MG/ML 1 ML VIAL IM STA (11:46)
[2024-06-18 13:00] VITALS: BP 114/75; PULSE 77; RESP 18; TEMP 98.6
== END 2024-06-18 12:14 | disposition home or self-care (01) ==
LOC: EC 11:27
DX: L60.0 Ingrowing nail (principal); F17.290 Nicotine dependence, other tobacco product, uncomplicated; Z88.0 Allergy status to penicillin; Z88.2 Allergy status to sulfonamides; Z88.1 Allergy status to other antibiotic agents; Z88.8 Allergy status to other drugs, medicaments and biological substances; Z91.040 Latex allergy status; Z86.73 Personal history of transient ischemic attack (TIA), and cerebral infarction without residual deficits
CPT/HCPCS: 99283; 96372; J1885

== ENCOUNTER 2024-07-07 13:36 | Emergency (ER) | payer OTHER ==
[2024-07-07 13:47] VITALS: BP 150/72; PULSE 64; RESP 18; TEMP 98.6
--- NOTE | 2024-07-07 14:12 | ED ---
General Adult HPI - General Chief complaint: Abdominal Pain Stated complaint: not able to eat or drink, nausea, stomach pain Time Seen by Provider: 07/07/24 13:50 Source: patient, RN notes reviewed, old records reviewed Mode of arrival: wheelchair Limitations: no limitations - History of Present Illness Initial comments: This is a 54-year-old male who is known to us. Patient comes quite regularly. Patient comes today and states he has not eaten or drank anything in 10 days. Patient states he was at [facility] and they gave him a liter of fluid IV but he keeps telling them that he can eat so they sentiment to get some basic blood work to make sure everything looks normal. Patient is able to swallow his saliva. - Related Data Home Medications Medication Instructions Recorded Confirmed Nitroglycerin Sl Tabs [Nitrostat] 0.4 mg SL Q5M PRN 08/20/23 03/04/24 Insulin Glargine,Hum.rec.anlog 15 units SQ HS 12/06/23 03/04/24 [Lantus Solostar Pen] Albuterol Inhaler [Ventolin Hfa 1 - 2 puff INHALATION RT-Q6H PRN 02/25/24 03/04/24 Inhaler] Albuterol Nebulized [Ventolin 2.5 mg INHALATION RT-QID PRN 02/25/24 03/04/24 Nebulized] Empagliflozin [Jardiance] 25 mg PO DAILY 02/25/24 03/04/24 Lidocaine 5% Patch [Lidoderm 5% 1 patch TRANSDERM DAILY 02/25/24 03/04/24 Patch] Omeprazole 40 mg PO DAILY 02/25/24 03/04/24 Tamsulosin [Flomax] 0.4 mg PO BID 02/25/24 03/04/24 amLODIPine [Norvasc] 10 mg PO DAILY 02/25/24 03/04/24 hydrOXYzine pamoate [Vistaril] 50 mg PO HS PRN 02/25/24 03/04/24 Benzonatate [Tessalon Perles] 100 mg PO TID PRN 02/27/24 03/04/24 Hyoscyamine Sulfate [Levsin-Sl] 0.125 mg SL QID PRN 02/27/24 03/04/24 hydrOXYzine pamoate [Vistaril] 25 mg PO BID 03/04/24 03/04/24 Previous Rx's Medication Instructions Recorded ARIPiprazole [Abilify] 15 mg PO DAILY 30 Days #30 tab 12/13/23 Aspirin EC [Ecotrin Low Dose] 81 mg PO DAILY 30 Days #30 tab 12/13/23 Atorvastatin [Lipitor] 10 mg PO HS 30 Days #30 tab 12/13/23 Budesonide-Formot 160-4.5 Mcg 2 puff INHALATION RT-BID 30 Days 12/13/23 [Symbicort 160-4.5 Mcg Inhaler] #1 each Cholecalciferol (Vitamin D3) 50 mcg PO DAILY 30 Days #30 tab 12/13/23 [Vitamin D3 (50 Mcg = 2000 Iu)] Famotidine [Pepcid] 20 mg PO BID PRN 30 Days #60 tab 12/13/23 Ipratropium-Albuterol Nebulize 3 ml INHALATION RT-QID PRN 30 Days 12/13/23 [Duoneb 0.5 mg-3 mg/3 ml Soln] #1 each Montelukast [Singulair] 10 mg PO HS 30 Days #30 tab 12/13/23 Sertraline [Zoloft] 100 mg PO HS 30 Days #30 tab 12/13/23 Ondansetron Odt [Zofran ODT] 4 mg PO Q8HR PRN #10 tab 01/04/24 traZODone HCL [Desyrel] 100 mg PO HS tab 02/22/24 Prochlorperazine [Compazine] 10 mg PO Q6H #15 tab 03/19/24 Allergies Allergy/AdvReac Type Severity Reaction Status Date / Time dicyclomine HCl [From Bentyl] Allergy Unknown Dyspnea Verified 07/07/24 13:41 latex Allergy Unknown Rash/Hives Verified 07/07/24 13:41 Benzoate Analogues Allergy Unknown Verified 07/07/24 13:41 nitrofurantoin Allergy Nausea Verified 07/07/24 13:41 [From Macrobid] Penicillins Allergy "[place] Verified 07/07/24 13:41 funny" adhesive AdvReac Unknown Itching Verified 07/07/24 13:41 ciprofloxacin AdvReac Unknown Nausea Verified 07/07/24 13:41 Macrolide Antibiotics AdvReac Unknown Nausea Verified 07/07/24 13:41 sulfamethoxazole AdvReac Unknown Unknown Verified 07/07/24 13:41 [From Bactrim] trimethoprim [From Bactrim] AdvReac Unknown Unknown Verified 07/07/24 13:41 diphenhydramine AdvReac Confusion Verified 07/07/24 13:41 [From Benadryl] Review of Systems ROS Statement: Those systems with pertinent positive or pertinent negative responses have been documented in the HPI. ROS Other: All systems not noted in ROS Statement are negative. Past Medical History Past Medical History: Asthma, Chest Pain / Angina, COPD, CVA/TIA, Diabetes Mellitus, GERD/Reflux, Hearing Disorder / Deafness, Hyperlipidemia, Hypertension, Liver Disease, Osteoarthritis (OA), Pneumonia, Seizure Disorder, Sleep Apnea/CPAP/BIPAP Additional Past Medical History / Comment(s): states CVA at 35 yrs old, no weakness @ this time. states seizure at 35 yrs old., DDD- back & neck pain., carpal tunnel syndrome. Has SCS public guardian. History of Any Multi-Drug Resistant Organisms: None Reported Past Surgical History: Heart Catheterization, Orthopedic Surgery Additional Past Surgical History / Comment(s): Cysts removed, left thumb surgery, colonoscopy 08/24/2019. Skin tags removed from both eyes. Past Anesthesia/Blood Transfusion Reactions: Unable to Obtain, Motion Sickness, Postoperative Nausea & Vomiting (PONV) Past Psychological History: Anxiety, Bipolar, Depression, Schizophrenia Smoking Status: Current every day smoker, Vaper Past Alcohol Use History: None Reported Past Drug Use History: None Reported - Past Family History Brother(s) Family Medical History: Diabetes Mellitus Additional Family Medical History / Comment(s): Patient has 2 brothers. One from complications from diabetes. The second is alive with diabetes. Sister(s) Family Medical History: Cancer Additional Family Medical History / Comment(s): Patient has one sister with breast cancer. Patient does not have any children. Father Family Medical History: Cancer Additional Family Medical History / Comment(s): Father in his 40s or 50s from colon cancer. Mother Family Medical History: Cancer Additional Family Medical History / Comment(s): Mother at age 68 from lung cancer. General Exam - General Exam Comments Initial Comments: GENERAL: Patient is well-developed and well-nourished. Patient is nontoxic and well- hydrated and is in no acute distress. Patient is able to follow his saliva without problem. Patient's in no distress ENT: Neck is soft and supple. No significant lymphadenopathy is noted. Oropharynx is clear. Moist mucous membranes. Neck has full range of motion without eliciting any pain. EYES: The sclera were anicteric and conjunctiva were pink and moist. Extraocular movements were intact and pupils were equal round and reactive to light. Eyelids were unremarkable. PULMONARY: Unlabored respirations. Good breath sounds bilaterally. No audible rales rhonchi or wheezing was noted. CARDIOVASCULAR: There is a regular rate and rhythm without any murmurs gallops or rubs ABDOMEN: Patient has no abdominal pain with distraction SKIN: Skin is clear with no lesions or rashes and otherwise unremarkable. NEUROLOGIC: Patient is alert and oriented x3. Cranial nerves II through XII are grossly intact. Motor and sensory are also intact. Normal speech, volume and content. Symmetrical smile. MUSCULOSKELETAL: Normal extremities with adequate strength and full range of motion. LYMPHATICS: No significant lymphadenopathy is noted PSYCHIATRIC: Normal psychiatric evaluation. Limitations: no limitations Course Vital Signs 07/07/24 13:41 Temperature 98.6 F Pulse Rate 64 Respiratory 18 Rate Blood Pressure 150/72 O2 Sat by Pulse 99 Oximetry Medical Decision Making - Medical Decision Making Was pt. sent in by a medical professional or institution (, PA, BASKET HAND BRAIDER, urgent care, hospital, or care home...) When possible be specific @ -No Did you speak to anyone other than the patient for history (EMS, parent, family, police, friend...)? What history was obtained from this source @ -No Did you review nursing and triage notes (agree or disagree)? Why? @ -I reviewed and agree with nursing and triage notes Were old charts reviewed (outside hosp., previous admission, EMS record, old EKG, old radiological studies, urgent care reports/EKG's, care home records)? Report findings @ -No old charts were reviewed Differential Diagnosis? @ -Malingering, dysphagia, esophageal dysfunction, this is not an all-inclusive list EKG interpreted by me (3pts min.). @ -As above X-rays interpreted by me (1pt min.). @ -None done CT interpreted by me (1pt min.). @ -None done U/S interpreted by me (1pt. min.). @ -None done What testing was considered but not performed or refused? (CT, X-rays, U/S, labs)? Why? @ -None What meds were considered but not given or refused? Why? @ -None Did you discuss the management of the patient with other professionals (professionals i.e. , PA, BASKET HAND BRAIDER, lab, RT, psych nurse, social service manager, pigs feet finisher, teacher, aviation tactical readiness officer, nurse outreach case manager)? Give summary @ -No Was smoking cessation discussed for >3mins.? @ -No Was critical care preformed (if so, how long)? @ -No Were there social determinants of health that impacted care today? How? (Homelessness, low income, unemployed, alcoholism, drug addiction, transportation, low edu. Level, literacy, decrease access to med. care, long-term, rehab)? @ -No Was there de-escalation of care discussed even if they declined (Discuss DNR or withdrawal of care, Hospice)? DNR status @ -No What co-morbidities impacted this encounter? (DM, HTN, Smoking, COPD, CAD, Cancer, CVA, ARF, Chemo, Hep., AIDS, mental health diagnosis, sleep apnea, morbid obesity)? @ -None Was patient admitted / discharged? Hospital course, mention meds given and route, prescriptions, significant lab abnormalities, going to OR and other pertinent info. @ -Patient did not appear to be at all dehydrated or malnutrition. Patient was able to swallow his saliva. Patient is in no distress. I spoke with denny the y agreed that if his lab work looked normal he can be discharged home and they will follow-up Undiagnosed new problem with uncertain prognosis? @ -No Drug Therapy requiring intensive monitoring for toxicity (Heparin, Nitro, Insulin, Cardizem)? @ -No Were any procedures done? @ -No Diagnosis/symptom? @ -Malingering Acute, or Chronic, or Acute on Chronic? @ -Acute Uncomplicated (without systemic symptoms) or Complicated (systemic symptoms)? @ -Complicated Side effects of treatment? @ -No Exacerbation, Progression, or Severe Exacerbation? @ -No Poses a threat to life or bodily function? How? (Chest pain, [place], [place], pneumonia, PE, COPD, DKA, ARF, appy, cholecystitis, CVA, Diverticulitis, Homicidal, Suicidal, threat to staff... and all critical care pts) @ -No - Lab Data Result diagrams: 07/07/24 14:23 07/07/24 14:23 Lab Results 07/07/24 07/07/24 Range/Units 14:23 14:23 WBC 6.8 (3.8-10.6) k/uL RBC 5.66 (4.30-5.90) m/uL Hgb 16.0 (13.0-17.5) gm/dL Hct 46.2 (39.0-53.0) % MCV 81.8 (80.0-100.0) fL MCH 28.2 (25.0-35.0) pg MCHC 34.5 (31.0-37.0) g/dL RDW 15.2 (11.5-15.5) % Plt Count 189 (150-450) k/uL MPV 7.3 Neutrophils % 75 % Lymphocytes % 16 % Monocytes % 5 % Eosinophils % 3 % Basophils % 0 % Neutrophils # 5.1 (1.3-7.7) k/uL Lymphocytes # 1.1 (1.0-4.8) k/uL Monocytes # 0.3 (0-1.0) k/uL Eosinophils # 0.2 (0-0.7) k/uL Basophils # 0.0 (0-0.2) k/uL Sodium 140 (137-145) mmol/L Potassium 3.9 (3.5-5.1) mmol/L Chloride 108 H (98-107) mmol/L Carbon Dioxide 23 (22-30) mmol/L Anion Gap 9 mmol/L BUN 13 (9-20) mg/dL Creatinine 0.70 (0.66-1.25) mg/dL Est GFR (CKD-EPI)AfAm >90 (>60 ml/min/1.73 sqM) Est GFR (CKD-EPI)NonAf >90 (>60 ml/min/1.73 sqM) Glucose 115 H (74-99) mg/dL Calcium 9.5 (8.4-10.2) mg/dL Total Bilirubin 0.3 (0.2-1.3) mg/dL AST 25 (17-59) U/L ALT 41 (4-49) U/L Alkaline Phosphatase 98 (38-126) U/L Total Protein 6.6 (6.3-8.2) g/dL Albumin 4.3 (3.5-5.0) g/dL Disposition Clinical Impression: Malingering Disposition: HOME SELF-CARE Condition: Good Is patient prescribed a controlled substance at d/c from ED?: No Referrals: None,Stated [REFERRING] - 1-2 days Time of Disposition: 15:19
[2024-07-07 14:43] LABS: Basophils % (A) 0 %; Eosinophils # (A) 0.2 k/uL (0-0.7); Eosinophils % (A) 3 %; HCT 46.2 % (39.0-53.0); Lymphocytes # (A) 1.1 k/uL (1.0-4.8); Lymphocytes % (A) 16 %; MCH 28.2 pg (25.0-35.0); MCHC 34.5 g/dL (31.0-37.0); MCV 81.8 fL (80.0-100.0); Mean Platelet Volume 7.3; Monocytes # (A) 0.3 k/uL (0-1.0); Monocytes % (A) 5 %; Neutrophils # (A) 5.1 k/uL (1.3-7.7); Neutrophils % (A) 75 %; Platelet Count 189 k/uL (150-450); RBC 5.66 m/uL (4.30-5.90); RDW 15.2 % (11.5-15.5); WBC 6.8 k/uL (3.8-10.6)
[2024-07-07 15:17] LABS: ALT 41 U/L (4-49); AST 25 U/L (17-59); African American GFR (CKD) >90 (>60 ml/min/1.73 sqM); Albumin 4.3 g/dL (3.5-5.0); Alkaline Phosphatase 98 U/L (38-126); Anion Gap 9 mmol/L; Blood Urea Nitrogen 13 mg/dL (9-20); Calcium 9.5 mg/dL (8.4-10.2); Carbon Dioxide 23 mmol/L (22-30); Chloride 108 mmol/L (98-107); Glucose 115 mg/dL (74-99); Non-African American GFR(CKD) >90 (>60 ml/min/1.73 sqM); Potassium 3.9 mmol/L (3.5-5.1); Sodium 140 mmol/L (137-145); Total Bilirubin 0.3 mg/dL (0.2-1.3); Total Protein 6.6 g/dL (6.3-8.2)
== END 2024-07-07 20:09 | disposition home or self-care (01) ==
LOC: EC 13:36
DX: Z76.5 Malingerer [conscious simulation] (principal); F17.290 Nicotine dependence, other tobacco product, uncomplicated; Z91.040 Latex allergy status; Z91.048 Other nonmedicinal substance allergy status; Z88.0 Allergy status to penicillin; Z88.1 Allergy status to other antibiotic agents; Z88.2 Allergy status to sulfonamides; Z88.8 Allergy status to other drugs, medicaments and biological substances
CPT/HCPCS: 36415; 80053; 85025; 99283

== ENCOUNTER 2024-07-09 10:04 | Inpatient (IN) | payer OTHER, MEDICAID ==
--- NOTE | 2024-07-09 10:43 | ED ---
Psych HPI - General Chief Complaint: Psychiatric Symptoms Stated Complaint: Mental health Time Seen by Provider: 07/09/24 10:06 Source: patient, RN notes reviewed Mode of arrival: ambulatory Limitations: no limitations - History of Present Illness Initial Comments: 54-year-old male presents emergency department with chief complaint of depression, suicide nation. He states he drank alcohol tonight states that has been depressed ever since she states he is hearing voices. Denies any self-harm currently. Patient is currently staying at a boarding home. Patient denies any other associated symptoms. Patient denies any illicit drug use - Related Data Home Medications Medication Instructions Recorded Confirmed Nitroglycerin Sl Tabs [Nitrostat] 0.4 mg SL Q5M PRN 08/20/23 03/04/24 Insulin Glargine,Hum.rec.anlog 15 units SQ HS 12/06/23 03/04/24 [Lantus Solostar Pen] Albuterol Inhaler [Ventolin Hfa 1 - 2 puff INHALATION RT-Q6H PRN 02/25/24 03/04/24 Inhaler] Albuterol Nebulized [Ventolin 2.5 mg INHALATION RT-QID PRN 02/25/24 03/04/24 Nebulized] Empagliflozin [Jardiance] 25 mg PO DAILY 02/25/24 03/04/24 Lidocaine 5% Patch [Lidoderm 5% 1 patch TRANSDERM DAILY 02/25/24 03/04/24 Patch] Omeprazole 40 mg PO DAILY 02/25/24 03/04/24 Tamsulosin [Flomax] 0.4 mg PO BID 02/25/24 03/04/24 amLODIPine [Norvasc] 10 mg PO DAILY 02/25/24 03/04/24 hydrOXYzine pamoate [Vistaril] 50 mg PO HS PRN 02/25/24 03/04/24 Benzonatate [Tessalon Perles] 100 mg PO TID PRN 02/27/24 03/04/24 Hyoscyamine Sulfate [Levsin-Sl] 0.125 mg SL QID PRN 02/27/24 03/04/24 hydrOXYzine pamoate [Vistaril] 25 mg PO BID 03/04/24 03/04/24 Previous Rx's Medication Instructions Recorded ARIPiprazole [Abilify] 15 mg PO DAILY 30 Days #30 tab 12/13/23 Aspirin EC [Ecotrin Low Dose] 81 mg PO DAILY 30 Days #30 tab 12/13/23 Atorvastatin [Lipitor] 10 mg PO HS 30 Days #30 tab 12/13/23 Budesonide-Formot 160-4.5 Mcg 2 puff INHALATION RT-BID 30 Days 12/13/23 [Symbicort 160-4.5 Mcg Inhaler] #1 each Cholecalciferol (Vitamin D3) 50 mcg PO DAILY 30 Days #30 tab 12/13/23 [Vitamin D3 (50 Mcg = 2000 Iu)] Famotidine [Pepcid] 20 mg PO BID PRN 30 Days #60 tab 12/13/23 Ipratropium-Albuterol Nebulize 3 ml INHALATION RT-QID PRN 30 Days 12/13/23 [Duoneb 0.5 mg-3 mg/3 ml Soln] #1 each Montelukast [Singulair] 10 mg PO HS 30 Days #30 tab 12/13/23 Sertraline [Zoloft] 100 mg PO HS 30 Days #30 tab 12/13/23 Ondansetron Odt [Zofran ODT] 4 mg PO Q8HR PRN #10 tab 01/04/24 traZODone HCL [Desyrel] 100 mg PO HS tab 02/22/24 Prochlorperazine [Compazine] 10 mg PO Q6H #15 tab 03/19/24 Allergies Allergy/AdvReac Type Severity Reaction Status Date / Time dicyclomine HCl [From Bentyl] Allergy Unknown Dyspnea Verified 07/09/24 10:16 latex Allergy Unknown Rash/Hives Verified 07/09/24 10:16 Benzoate Analogues Allergy Unknown Verified 07/09/24 10:16 nitrofurantoin Allergy Nausea Verified 07/09/24 10:16 [From Macrobid] Penicillins Allergy "Black Verified 07/09/24 10:16 funny" adhesive AdvReac Unknown Itching Verified 07/09/24 10:16 ciprofloxacin AdvReac Unknown Nausea Verified 07/09/24 10:16 Macrolide Antibiotics AdvReac Unknown Nausea Verified 07/09/24 10:16 sulfamethoxazole AdvReac Unknown Unknown Verified 07/09/24 10:16 [From Bactrim] trimethoprim [From Bactrim] AdvReac Unknown Unknown Verified 07/09/24 10:16 diphenhydramine AdvReac Confusion Verified 07/09/24 10:16 [From Benadryl] Review of Systems ROS Statement: Those systems with pertinent positive or pertinent negative responses have been documented in the HPI. ROS Other: All systems not noted in ROS Statement are negative. Past Medical History Past Medical History: Asthma, Chest Pain / Angina, COPD, CVA/TIA, Diabetes Mellitus, GERD/Reflux, Hearing Disorder / Deafness, Hyperlipidemia, Hypertension, Liver Disease, Osteoarthritis (OA), Pneumonia, Seizure Disorder, Sleep Apnea/CPAP/BIPAP Additional Past Medical History / Comment(s): states CVA at 35 yrs old, no weakness @ this time. states seizure at 35 yrs old., DDD- back & neck pain., carpal tunnel syndrome. Has [employer] public guardian. History of Any Multi-Drug Resistant Organisms: None Reported Past Surgical History: Heart Catheterization, Orthopedic Surgery Additional Past Surgical History / Comment(s): Cysts removed, left thumb surgery, colonoscopy 08/24/2019. Skin tags removed from both eyes. Past Anesthesia/Blood Transfusion Reactions: Unable to Obtain, Motion Sickness, Postoperative Nausea & Vomiting (PONV) Past Psychological History: Anxiety, Bipolar, Depression, Schizophrenia Smoking Status: Current every day smoker, Vaper Past Alcohol Use History: None Reported Past Drug Use History: None Reported - Past Family History Brother(s) Family Medical History: Diabetes Mellitus Additional Family Medical History / Comment(s): Patient has 2 brothers. One from complications from diabetes. The second is alive with diabetes. Sister(s) Family Medical History: Cancer Additional Family Medical History / Comment(s): Patient has one sister with breast cancer. Patient does not have any children. Father Family Medical History: Cancer Additional Family Medical History / Comment(s): Father in his 40s or 50s from colon cancer. Mother Family Medical History: Cancer Additional Family Medical History / Comment(s): Mother at age 68 from lung cancer. General Exam Limitations: no limitations General appearance: alert, in no apparent distress Head exam: Present: atraumatic, normocephalic, normal inspection Eye exam: Present: normal appearance, PERRL, EOMI. Absent: scleral icterus, conjunctival injection, periorbital swelling ENT exam: Present: normal exam, normal oropharynx, mucous membranes moist, TM's normal bilaterally Neck exam: Present: normal inspection, full ROM. Absent: tenderness, meningismus, lymphadenopathy Respiratory exam: Present: normal lung sounds bilaterally. Absent: respiratory distress, wheezes, rales, rhonchi, stridor Cardiovascular Exam: Present: regular rate, normal rhythm, normal heart sounds. Absent: systolic murmur, diastolic murmur, rubs, gallop, clicks GI/Abdominal exam: Present: soft, normal bowel sounds. Absent: distended, tenderness, guarding, rebound, rigid Neurological exam: Present: alert Psychiatric exam: Present: depressed, flat affect Course Vital Signs 07/09/24 10:16 Temperature 97.6 F Pulse Rate 57 L Respiratory 18 Rate Blood Pressure 119/72 O2 Sat by Pulse 96 Oximetry Medical Decision Making - Medical Decision Making Was pt. sent in by a medical professional or institution (, PA, UNIT TECHNICIAN, urgent care, hospital, or detention...) When possible be specific @ -No Did you speak to anyone other than the patient for history (EMS, parent, family, police, friend...)? What history was obtained from this source @ -No Did you review nursing and triage notes (agree or disagree)? Why? @ -I reviewed and agree with nursing and triage notes Were old charts reviewed (outside hosp., previous admission, EMS record, old EKG, old radiological studies, urgent care reports/EKG's, detention records)? Report findings @ -No old charts were reviewed Differential Diagnosis (chest pain, altered mental status, abdominal pain women, abdominal pain men, vaginal bleeding, weakness, fever, dyspnea, syncope, headache, dizziness, GI bleed, back pain, seizure, CVA, palpatations, mental health, musculoskeletal)? @ -[Differential Mental Health Depression, anxiety, bipolar, psychosis, schizophrenia, borderline personality, situational depression, adjustment disorder, behavioral disorder, brain tumor, malingering, substance abuse, encephalopathy, medication reaction, dementia, hypothyroidism, degenerative neurologic disorder, lupus.... This is not meant to be all-inclusive list EKG interpreted by me (3pts min.). @ -As above X-rays interpreted by me (1pt min.). @ -None done CT interpreted by me (1pt min.). @ -None done U/S interpreted by me (1pt. min.). @ -None done What testing was considered but not performed or refused? (CT, X-rays, U/S, labs)? Why? @ -None What meds were considered but not given or refused? Why? @ -None Did you discuss the management of the patient with other professionals (professionals i.e. , PA, UNIT TECHNICIAN, lab, RT, psych nurse, social sciences chair, design project manager, teacher, youth corrections officer, piano case and bench assembler)? Give summary @ -EPS to evaluate the patient and discussed case with psychiatrist recommended inpatient treatment. Was smoking cessation discussed for >3mins.? @ -No Was critical care preformed (if so, how long)? @ -No Were there social determinants of health that impacted care today? How? (Homelessness, low income, unemployed, alcoholism, drug addiction, transportation, low edu. Level, literacy, decrease access to med. care, long-term, rehab)? @ -No Was there de-escalation of care discussed even if they declined (Discuss DNR or withdrawal of care, Hospice)? DNR status @ -No What co-morbidities impacted this encounter? (DM, HTN, Smoking, COPD, CAD, Cancer, CVA, ARF, Chemo, Hep., AIDS, mental health diagnosis, sleep apnea, morbid obesity)? @ -None Was patient admitted / discharged? Hospital course, mention meds given and route, prescriptions, significant lab abnormalities, going to OR and other pertinent info. @ -[Admitted to 3 W. Undiagnosed new problem with uncertain prognosis? @ -No Drug Therapy requiring intensive monitoring for toxicity (Heparin, Nitro, Insulin, Cardizem)? @ -No Were any procedures done? @ -No Diagnosis/symptom? @ -Depression, suicide ideation Acute, or Chronic, or Acute on Chronic? @ -Acute Uncomplicated (without systemic symptoms) or Complicated (systemic symptoms)? @ -Uncomplicated Side effects of treatment? @ -No Exacerbation, Progression, or Severe Exacerbation? @ -No Poses a threat to life or bodily function? How? (Chest pain, [place], NH, pneumonia, PE, COPD, DKA, ARF, appy, cholecystitis, CVA, Diverticulitis, Homicidal, Suicidal, threat to staff... and all critical care pts) @ -Yes suicidal - Lab Data Lab Results 07/09/24 07/09/24 Range/Units 10:37 10:37 Urine Opiates Screen Not Detected (NotDetected) Ur Oxycodone Screen Not Detected (NotDetected) Urine Methadone Screen Not Detected (NotDetected) Ur Barbiturates Screen Not Detected (NotDetected) U Tricyclic Antidepress Not Detected (NotDetected) Ur Phencyclidine Scrn Not Detected (NotDetected) Ur Amphetamines Screen Not Detected (NotDetected) U Methamphetamines Scrn Not Detected (NotDetected) U Benzodiazepines Scrn Not Detected (NotDetected) Urine Cocaine Screen Not Detected (NotDetected) U Marijuana (THC) Screen Not Detected (NotDetected) SARS-CoV-2 (PCR) Not Detected (Not Detectd) Disposition Clinical Impression: Depression, Suicidal ideation Disposition: TRANSFER TO PSYCH HOSP/UNIT Condition: Fair Referrals: Bryan Martinez MD [Primary Care Provider] - 1-2 days Time of Disposition: 13:18
[2024-07-09] MEDS: ACETAMINOPHEN TAB 325 MG TAB PO STA (11:01)
[2024-07-09] MEDS: ONDANSETRON ODT 4 MG TAB PO STA (11:01)
[2024-07-09 11:10] LABS: Amphetamine Screen,Urine Not Detected (NotDetected); Barbiturate Screen,Urine Not Detected (NotDetected); Benzodiazepines Screen,Urine Not Detected (NotDetected); Cocaine Screen,Urine Not Detected (NotDetected); Methadone Screen, Urine Not Detected (NotDetected); Opiate Screen,Urine Not Detected (NotDetected); Oxycodone Screen, Urine Not Detected (NotDetected); Phencyclidine Screen,Urine Not Detected (NotDetected); Tricyclic Antidepressant,Urine Not Detected (NotDetected); Urn Cannabinoid Scrn Not Detected (NotDetected)
[2024-07-09 14:06] LABS: Glucose,Whole Blood 101 mg/dL (70-110)
[2024-07-09] MEDS ORDERED: MAGNESIUM HYDROXIDE 2,400 MG/30 ML CUP PO PRN (14:24)
[2024-07-09] MEDS ORDERED: LORazepam 1 MG TAB PO PRN (14:24)
[2024-07-09] MEDS ORDERED: HALOPERIDOL LACTATE 5 MG/ML 1 ML VIAL IM PRN (14:24)
[2024-07-09] MEDS ORDERED: haloperidoL 5 MG TAB PO PRN (14:24)
[2024-07-09] MEDS ORDERED: LORazepam 2 MG/ML INJ IM PRN (14:24)
[2024-07-09] MEDS: NICOTINE 21MG/24HR PATCH TRANSDERM SCH (15:22)
[2024-07-09] MEDS: IBUPROFEN 600 MG TAB PO PRN (15:24)
[2024-07-09 16:56] LABS: Appearance,Urine Clear (Clear); Bilirubin,Urine Negative (Negative); Blood,Urine Negative (Negative); Color,Urine Colorless; Glucose,Urine (UA) 4+ (Negative); Ketones,Urine Negative (Negative); Leukocyte Esterase,Urine Negative (Negative); Nitrite,Urine Negative (Negative); PH, Urine 6.5 (5.0-8.0); Protein,Urine Negative (Negative); Specific Gravity,Urine 1.016 (1.001-1.035); Urobilinogen,Urine <2.0 mg/dL (<2.0)
[2024-07-09] MEDS: LORazepam 1 MG TAB PO PRN (17:25)
[2024-07-09] MEDS: MAG HYDROX/AL HYDROX/SIMETH 355 ML BOTTLE PO PRN (17:31)
[2024-07-09 17:41] LABS: Glucose,Whole Blood 143 mg/dL (70-110)
[2024-07-09] MEDS ORDERED: hydrOXYzine pamoate 25 MG CAP PO PRN (19:41)
[2024-07-09] MEDS ORDERED: BENZONATATE 100 MG CAP PO PRN (19:41)
[2024-07-09] MEDS ORDERED: FAMOTIDINE 20 MG TAB PO PRN (19:41)
[2024-07-09] MEDS ORDERED: CHOLESTYRAMINE (WITH SUGAR) 4 GM PACKET PO PRN (19:41)
[2024-07-09] MEDS ORDERED: IBUPROFEN 600 MG TAB PO PRN (19:41)
[2024-07-09 20:00] LABS: Glucose,Whole Blood 236 mg/dL (70-110)
[2024-07-09] MEDS ORDERED: SYMBICORT 80-4.5 MCG INHALER INHALATION SCH (20:00)
[2024-07-09] MEDS: amLODIPine 10 MG TAB PO SCH (20:51)
[2024-07-09] MEDS: ATORVASTATIN 10 MG TAB PO SCH (20:51)
[2024-07-09] MEDS: INSULIN DETEMIR (LEVEMIR) 100 UNIT/ML SYR SQ SCH (20:52)
[2024-07-09] MEDS: FLUTICASONE NASAL 50MCG/SPRAY 16GM BTL EA NOSTRIL SCH (20:52)
[2024-07-09] MEDS: SYMBICORT 80-4.5 MCG INHALER (MHU) INHALATION SCH (20:58)
[2024-07-09] MEDS: traZODone HCL 100 MG TAB PO PRN (21:01)
[2024-07-09] MEDS ORDERED: DEXTROSE 50% SYRINGE 50 ML IVP PRN ×2 (21:19)
--- NOTE | 2024-07-09 21:24 | P.MDCNMH ---
History of Present Illness H&P Date: 07/09/24 54-year-old male with diabetes mellitus hypertension asthma Patient coming in for evaluation of suicidal ideation and self-harm. Patient also admits to heavy alcohol consumption most recent drink was just prior for him coming in to the hospital. Patient also endorses diabetes mellitus he is on insulin at home, and asthma for which he takes inhalers at home he is not on home oxygen. He reports high blood pressure for which he takes medication of which he claims being compliant with Patient denies illicit drugs admits to smoking and alcohol review of systems Pertinent positives as noted in HPI. All other systems were reviewed and are negative on exam Constitutional: No acute distress, conversant Eyes: Anicteric sclerae, moist conjunctiva, Pupils equal round reactive to light Lungs: Clear to auscultation Clear to percussion Normal respiratory effort, no accessory muscle use Cardiovascular: Heart regular in rate and rhythm, No murmurs, gallops, or rubs No peripheral edema Abdominal: Soft Nontender, no guarding, rebound or rigidity Abdomen moving with respiration Normoactive bowel sounds Extremities: No digital cyanosis No clubbing Pedal pulses intact and symmetrical Radial pulses intact and symmetrical No calf tenderness Psychiatric: Alert and oriented to person, place and time Neuro Muscles Strength 5/5 in all 4 extremities Sensation to light touch grossly present throughout Cranial nerves II-XII grossly intact Past Medical History Past Medical History: Asthma, Chest Pain / Angina, COPD, CVA/TIA, Diabetes Mellitus, GERD/Reflux, Hearing Disorder / Deafness, Hyperlipidemia, Hypertension, Liver Disease, Osteoarthritis (OA), Pneumonia, Seizure Disorder, Sleep Apnea/CPAP/BIPAP Additional Past Medical History / Comment(s): states CVA at 35 yrs old, no weakness @ this time. states seizure at 35 yrs old., DDD- back & neck pain., carpal tunnel syndrome. Has [employer] public guardian. History of Any Multi-Drug Resistant Organisms: None Reported Past Surgical History: Heart Catheterization, Orthopedic Surgery Additional Past Surgical History / Comment(s): Cysts removed, left thumb surgery, colonoscopy 08/24/2019. Skin tags removed from both eyes. Past Anesthesia/Blood Transfusion Reactions: Unable to Obtain, Motion Sickness, Postoperative Nausea & Vomiting (PONV) Past Psychological History: Anxiety, Bipolar, Depression, Schizophrenia Additional Psychological History / Comment(s): Pt has a public legal guardian, lives in a BOARDING HOUSE. Goes to [employer]. Smoking Status: Current every day smoker Past Alcohol Use History: None Reported Additional Past Alcohol Use History / Comment(s): Previous ETOH history when younger. Admits to starting to increase drinking again. Past Drug Use History: None Reported Additional Drug Use History / Comment(s): pt denies any recreational drug use - Past Family History Brother(s) Family Medical History: Diabetes Mellitus Additional Family Medical History / Comment(s): Patient has 2 brothers. One from complications from diabetes. The second is alive with diabetes. Sister(s) Family Medical History: Cancer Additional Family Medical History / Comment(s): Patient has one sister with breast cancer. Patient does not have any children. Father Family Medical History: Cancer Additional Family Medical History / Comment(s): Father in his 40s or 50s from colon cancer. Mother Family Medical History: Cancer Additional Family Medical History / Comment(s): Mother at age 68 from lung cancer. Medications and Allergies Home Medications Medication Instructions Recorded Confirmed Type Nitroglycerin Sl Tabs [Nitrostat] 0.4 mg SL Q5M PRN 08/20/23 07/09/24 History Insulin Glargine,Hum.rec.anlog 15 units SQ HS 12/06/23 07/09/24 History [Lantus Solostar Pen] ARIPiprazole [Abilify] 15 mg PO DAILY 30 Days #30 tab 12/13/23 07/09/24 Rx Aspirin EC [Ecotrin Low Dose] 81 mg PO DAILY 30 Days #30 tab 12/13/23 07/09/24 Rx Atorvastatin [Lipitor] 10 mg PO HS 30 Days #30 tab 12/13/23 07/09/24 Rx Cholecalciferol (Vitamin D3) 50 mcg PO DAILY 30 Days #30 tab 12/13/23 07/09/24 Rx [Vitamin D3 (50 Mcg = 2000 Iu)] Famotidine [Pepcid] 20 mg PO BID PRN 30 Days #60 tab 12/13/23 07/09/24 Rx Montelukast [Singulair] 10 mg PO HS 30 Days #30 tab 12/13/23 07/09/24 Rx Sertraline [Zoloft] 100 mg PO HS 30 Days #30 tab 12/13/23 07/09/24 Rx Albuterol Inhaler [Ventolin Hfa 2 puff INHALATION RT-Q6H PRN 02/25/24 07/09/24 History Inhaler] Albuterol Nebulized [Ventolin 2.5 mg INHALATION RT-Q6H PRN 02/25/24 07/09/24 History Nebulized] Empagliflozin [Jardiance] 25 mg PO DAILY 02/25/24 07/09/24 History Lidocaine 5% Patch [Lidoderm 5% 1 - 3 patch TRANSDERM DAILY 02/25/24 07/09/24 History Patch] amLODIPine [Norvasc] 10 mg PO HS 02/25/24 07/09/24 History Benzonatate [Tessalon Perles] 100 mg PO TID PRN 02/27/24 07/09/24 History hydrOXYzine pamoate [Vistaril] 25 mg PO BID PRN 03/04/24 07/09/24 History Budesonide/Formoterol Fumarate 2 puff INHALATION RT-BID 07/09/24 07/09/24 History [Symbicort 80-4.5 Mcg Inhaler] Cholestyramine/Aspartame [Questran 4 gm PO TID PRN 07/09/24 07/09/24 History Light Powder] Fluticasone Nasal [place] [Flonase 1 spray EA NOSTRIL BID 07/09/24 07/09/24 History Nasal [place]] Ibuprofen [Motrin] 600 mg PO TID PRN 07/09/24 07/09/24 History Insulin Lispro [humaLOG Kwikpen] 1 - 7 unit SQ AC-TID 07/09/24 07/09/24 History Loperamide [Imodium] 2 mg PO DAILY 07/09/24 07/09/24 History Orphenadrine Citrate [Orphenadrine 100 mg PO BID 07/09/24 07/09/24 History Citrate ER] Pantoprazole [Protonix] 40 mg PO DAILY 07/09/24 07/09/24 History Potassium Chloride [Klor-Con 20 20 meq PO DAILY 07/09/24 07/09/24 History Packets] ondansetron HCL [Zofran] 8 mg PO DAILY 07/09/24 07/09/24 History polyethylene glycoL 3350 [Miralax] 17 gm PO DAILY 07/09/24 07/09/24 History traZODone HCL [Desyrel] 100 mg PO HS PRN 07/09/24 07/09/24 History Allergies Allergy/AdvReac Type Severity Reaction Status Date / Time dicyclomine HCl [From Bentyl] Allergy Unknown Dyspnea Verified 07/09/24 14:21 latex Allergy Unknown Rash/Hives Verified 07/09/24 14:21 Benzoate Analogues Allergy Unknown Verified 07/09/24 14:21 nitrofurantoin Allergy Nausea Verified 07/09/24 14:21 [From Macrobid] Penicillins Allergy "[place] Verified 07/09/24 14:21 funny" adhesive AdvReac Unknown Itching Verified 07/09/24 14:21 ciprofloxacin AdvReac Unknown Nausea Verified 07/09/24 14:21 Macrolide Antibiotics AdvReac Unknown Nausea Verified 07/09/24 14:21 sulfamethoxazole AdvReac Unknown Unknown Verified 07/09/24 14:21 [From Bactrim] trimethoprim [From Bactrim] AdvReac Unknown Unknown Verified 07/09/24 14:21 diphenhydramine AdvReac Confusion Verified 07/09/24 14:21 [From Benadryl] Physical Exam Vitals: Vital Signs Temp Pulse Pulse Resp BP BP Pulse Ox 07/09/24 15:16 98.3 F 96 18 117/73 96 07/09/24 10:16 97.6 F 57 L 18 119/72 96 Intake and Output 07/09/24 07/09/24 07/09/24 06:59 14:59 22:59 Other: Weight 81.647 kg 78.471 kg Cranial Nerve Examination - Cranial Nerves Cranial Nerve II- Optic: Intact Cranial Nerve III- Oculomotor: Intact Cranial Nerve IV- Trochlear: Intact Cranial Nerve V- Trigeminal: Intact Cranial Nerve - Abducens: Intact Cranial Nerve VII- Facial: Intact Cranial Nerve VIII- Auditory: Intact Cranial Nerve IX- Glossopharyngeal: Intact Cranial Nerve X- Vagus: Intact Cranial Nerve XI- Accessory: Intact Cranial Nerve XII- Hypoglossal: Intact Results Labs: Abnormal Lab Results - Last 24 Hours (Table) 07/09/24 07/09/24 07/09/24 Range/Units 10:37 17:40 19:59 POC Glucose (mg/dL) 143 H 236 H (70-110) mg/dL Urine Glucose (UA) 4+ H (Negative) Assessment and Plan Assessment: Diabetes mellitus Continue with Farxiga Continue with Levemir Insulin sliding scale Check A1c Hypertension Continue with amlodipine Blood pressure well-controlled Moderate persistent asthma Continue with Symbicort twice daily Continue with montelukast Albuterol inhaler 2 puffs 4 times daily as needed for shortness of breath Suicidal ideation Management per psych Alcohol dependence and abuse Monitor for alcohol withdrawal Benzo per CIWA scale Thiamine p.o. daily One-time dose of Librium 50 mg p.o. No blood work available for review Urine drug screen and urine analysis both are unremarkable COVID test negative Overall patient stable from medical standpoint Thank you for this consultation
[2024-07-09] MEDS: chlordiazePOXIDE 25 MG CAP PO STA (22:03)
[2024-07-10 02:11] LABS: Glucose,Whole Blood 249 mg/dL (70-110)
[2024-07-10] MEDS: LORazepam 1 MG TAB PO PRN (02:16)
[2024-07-10] MEDS: ACETAMINOPHEN TAB 325 MG TAB PO PRN (02:18)
[2024-07-10] MEDS: chlordiazePOXIDE 25 MG CAP PO STA (02:58)
[2024-07-10] MEDS: ALBUTEROL INHALER 60 PUFF/8 GM INHALER (MHU) INHALATION PRN (02:58)
[2024-07-10] MEDS: ONDANSETRON 4 MG TAB PO PRN (03:00)
[2024-07-10 04:27] LABS: Basophils % (A) 0 %; Eosinophils # (A) 0.2 k/uL (0-0.7); Eosinophils % (A) 4 %; HCT 47.4 % (39.0-53.0); HGB 16.2 gm/dL (13.0-17.5); Lymphocytes % (A) 21 %; MCH 28.5 pg (25.0-35.0); MCHC 34.2 g/dL (31.0-37.0); MCV 83.4 fL (80.0-100.0); Mean Platelet Volume 7.2; Monocytes # (A) 0.3 k/uL (0-1.0); Monocytes % (A) 6 %; Neutrophils # (A) 3.2 k/uL (1.3-7.7); Neutrophils % (A) 67 %; Platelet Count 184 k/uL (150-450); RBC 5.69 m/uL (4.30-5.90); RDW 15.1 % (11.5-15.5); WBC 4.8 k/uL (3.8-10.6)
[2024-07-10 04:43] LABS: ALT 37 U/L (4-49); AST 25 U/L (17-59); African American GFR (CKD) >90 (>60 ml/min/1.73 sqM); Albumin 4.2 g/dL (3.5-5.0); Alkaline Phosphatase 98 U/L (38-126); Anion Gap 6 mmol/L; Bilirubin,Unconjugated 0.3 mg/dL (0.0-1.1); Blood Urea Nitrogen 13 mg/dL (9-20); Calcium 9.8 mg/dL (8.4-10.2); Carbon Dioxide 24 mmol/L (22-30); Chloride 109 mmol/L (98-107); Glucose 159 mg/dL (74-99); Non-African American GFR(CKD) >90 (>60 ml/min/1.73 sqM); Sodium 139 mmol/L (137-145); Total Bilirubin 0.1 mg/dL (0.2-1.3); Total Protein 6.3 g/dL (6.3-8.2)
[2024-07-10] MEDS ORDERED: CALCIUM CARBONATE 500 MG CHEWABLE PO PRN (06:05)
[2024-07-10 07:42] LABS: Glucose,Whole Blood 131 mg/dL (70-110)
[2024-07-10 08:55] LABS: Chol/HDL Ratio 3.05 Ratio; LDL Cholesterol,Calculated 40.1 mg/dL (0.0-131.0)
[2024-07-10] MEDS: PANTOPRAZOLE 40 MG TABLET PO SCH (09:02)
[2024-07-10] MEDS: LIDOCAINE 4% PATCH TOPICAL SCH (10:08)
[2024-07-10] MEDS: ARIPiprazole 15 MG TAB PO SCH (10:10)
[2024-07-10] MEDS: FOLIC ACID 1 MG TAB PO SCH (10:10)
[2024-07-10] MEDS: CHOLECALCIFEROL 25 MCG (1000 IU) TABLET PO SCH (10:10)
[2024-07-10] MEDS: DAPAGLIFLOZIN PROPANEDIOL 10 MG TABLET PO SCH (10:10)
[2024-07-10] MEDS: MULTIVITAMINS, THERA 1 EACH TAB PO SCH (10:10)
[2024-07-10] MEDS: ASPIRIN 81 MG PO SCH (10:10)
[2024-07-10] MEDS: THIAMINE 100 MG TAB PO SCH (10:10)
[2024-07-10 11:14] VITALS: BMI 28.8
--- NOTE | 2024-07-10 12:37 | P.HP ---
Psychiatric H&P - . H&P Date: 07/10/24 History & Physical: Allergies Allergy/AdvReac Type Severity Reaction Status Date / Time dicyclomine HCl [From Bentyl] Allergy Unknown Dyspnea Verified 07/09/24 14:21 latex Allergy Unknown Rash/Hives Verified 07/09/24 14:21 Benzoate Analogues Allergy Unknown Verified 07/09/24 14:21 nitrofurantoin Allergy Nausea Verified 07/09/24 14:21 [From Macrobid] Penicillins Allergy "[place] Verified 07/09/24 14:21 funny" adhesive AdvReac Unknown Itching Verified 07/09/24 14:21 ciprofloxacin AdvReac Unknown Nausea Verified 07/09/24 14:21 Macrolide Antibiotics AdvReac Unknown Nausea Verified 07/09/24 14:21 sulfamethoxazole AdvReac Unknown Unknown Verified 07/09/24 14:21 [From Bactrim] trimethoprim [From Bactrim] AdvReac Unknown Unknown Verified 07/09/24 14:21 diphenhydramine AdvReac Confusion Verified 07/09/24 14:21 [From Benadryl] Vital Signs Temp 97.7 F 07/10/24 02:15 Pulse 118 H 07/10/24 10:16 Resp 18 07/10/24 03:41 BP 92/62 07/10/24 10:16 Pulse Ox 97 07/10/24 03:41 FiO2 Intake & Output 07/09/24 07/10/24 07/10/24 18:59 06:59 18:59 Weight 78.471 kg 78.471 kg Laboratory Last Values WBC 4.8 k/uL (3.8-10.6) 07/10/24 04:15 RBC 5.69 m/uL (4.30-5.90) 07/10/24 04:15 Hgb 16.2 gm/dL (13.0-17.5) 07/10/24 04:15 Hct 47.4 % (39.0-53.0) 07/10/24 04:15 MCV 83.4 fL (80.0-100.0) 07/10/24 04:15 MCH 28.5 pg (25.0-35.0) 07/10/24 04:15 MCHC 34.2 g/dL (31.0-37.0) 07/10/24 04:15 RDW 15.1 % (11.5-15.5) 07/10/24 04:15 Plt Count 184 k/uL (150-450) 07/10/24 04:15 MPV 7.2 07/10/24 04:15 Neutrophils % 67 % 07/10/24 04:15 Lymphocytes % 21 % 07/10/24 04:15 Monocytes % 6 % 07/10/24 04:15 Eosinophils % 4 % 07/10/24 04:15 Basophils % 0 % 07/10/24 04:15 Neutrophils # 3.2 k/uL (1.3-7.7) 07/10/24 04:15 Lymphocytes # 1.0 k/uL (1.0-4.8) 07/10/24 04:15 Monocytes # 0.3 k/uL (0-1.0) 07/10/24 04:15 Eosinophils # 0.2 k/uL (0-0.7) 07/10/24 04:15 Basophils # 0.0 k/uL (0-0.2) 07/10/24 04:15 Sodium 139 mmol/L (137-145) 07/10/24 04:15 Potassium 4.0 mmol/L (3.5-5.1) 07/10/24 04:15 Chloride 109 mmol/L (98-107) H 07/10/24 04:15 Carbon Dioxide 24 mmol/L (22-30) 07/10/24 04:15 Anion Gap 6 mmol/L 07/10/24 04:15 BUN 13 mg/dL (9-20) 07/10/24 04:15 Creatinine 0.73 mg/dL (0.66-1.25) 07/10/24 04:15 Est GFR (CKD-EPI)AfAm >90 (>60 ml/min/1.73 sqM) 07/10/24 04:15 Est GFR (CKD-EPI)NonAf >90 (>60 ml/min/1.73 sqM) 07/10/24 04:15 Glucose 159 mg/dL (74-99) H 07/10/24 04:15 POC Glucose (mg/dL) 131 mg/dL (70-110) H 07/10/24 07:40 POC Glu Vrt Mechanic JEANCARLOS [place] 07/10/24 07:[address] Glu mg/dL 194 mg/dL 07/10/24 04:15 Hemoglobin A1c 8.4 % (<=6.0) H 07/10/24 04:15 Calcium 9.8 mg/dL (8.4-10.2) 07/10/24 04:15 Total Bilirubin 0.1 mg/dL (0.2-1.3) L 07/10/24 04:15 Conjugated Bilirubin 0.0 mg/dL (0.0-0.3) 07/10/24 04:15 Unconjugated Bilirubin 0.3 mg/dL (0.0-1.1) 07/10/24 04:15 Delta Bilirubin 0.0 mg/dL (0.0-0.2) 07/10/24 04:15 AST 25 U/L (17-59) 07/10/24 04:15 ALT 37 U/L (4-49) 07/10/24 04:15 Alkaline Phosphatase 98 U/L (38-126) 07/10/24 04:15 Troponin I <0.012 ng/mL (0.000-0.034) 07/10/24 09:56 Total Protein 6.3 g/dL (6.3-8.2) 07/10/24 04:15 Albumin 4.2 g/dL (3.5-5.0) 07/10/24 04:15 Triglycerides 277.00 mg/dL (0.00-149.00) H 07/10/24 04:15 Cholesterol 142.00 mg/dL (0.00-200.00) 07/10/24 04:15 LDL Cholesterol, Calc 40.1 mg/dL (0.0-131.0) 07/10/24 04:15 VLDL Cholesterol, Calc 55.40 mg/dL (5.00-40.00) H 07/10/24 04:15 HDL Cholesterol 46.50 mg/dL (40.00-60.00) 07/10/24 04:15 Cholesterol/HDL Ratio 3.05 Ratio 07/10/24 04:15 TSH 1.100 mIU/L (0.465-4.680) 07/10/24 04:15 Urine Color Colorless 07/09/24 10:37 Urine Appearance Clear (Clear) 07/09/24 10:37 Urine pH 6.5 (5.0-8.0) 07/09/24 10:37 Ur Specific [place] 1.016 (1.001-1.035) 07/09/24 10:37 Urine Protein Negative (Negative) 07/09/24 10:37 Urine Glucose (UA) 4+ (Negative) H 07/09/24 10:37 Urine Ketones Negative (Negative) 07/09/24 10:37 Urine Blood Negative (Negative) 07/09/24 10:37 Urine Nitrite Negative (Negative) 07/09/24 10:37 Urine Bilirubin Negative (Negative) 07/09/24 10:37 Urine Urobilinogen <2.0 mg/dL (<2.0) 07/09/24 10:37 Ur Leukocyte Esterase Negative (Negative) 07/09/24 10:37 Urine Opiates Screen Not Detected (NotDetected) 07/09/24 10:37 Ur Oxycodone Screen Not Detected (NotDetected) 07/09/24 10:37 Urine Methadone Screen Not Detected (NotDetected) 07/09/24 10:37 Ur Barbiturates Screen Not Detected (NotDetected) 07/09/24 10:37 U Tricyclic Antidepress Not Detected (NotDetected) 07/09/24 10:37 Ur Phencyclidine Scrn Not Detected (NotDetected) 07/09/24 10:37 Ur Amphetamines Screen Not Detected (NotDetected) 07/09/24 10:37 U Methamphetamines Scrn Not Detected (NotDetected) 07/09/24 10:37 U Benzodiazepines Scrn Not Detected (NotDetected) 07/09/24 10:37 Urine Cocaine Screen Not Detected (NotDetected) 07/09/24 10:37 U Marijuana (THC) Screen Not Detected (NotDetected) 07/09/24 10:37 SARS-CoV-2 (PCR) Not Detected (Not Detectd) 07/09/24 10:37 07/10/24 12:24 IDENTIFYING DATA: Patient is a 54 year old man, never , no children, [facility] [place] [facility] Unemployed. Receives SSD. Has public guardian. HPI: Patient presented to the hospital ansd was seen by EPS. As per EPS note, "Patient brought self to ED related to suicidal ideations, hallucinations, and unable to eat. Patient assessed in ER 14 from [id number]. Patient verbalizes he has been feeling down and depressed since Wednesday night when he was drinking alcohol. Patient states that he has been increasingly anxious and overwhelmed. Patient verbalizes suicidal ideation with a plan to OD on medications. Patient verbalizes that he has had an attempt in the past approx 1-2 years ago by putting a gutter hanger down his throat and OD on medications. Patient verbalizes auditory hallucinations "all day and night" and endorses that the voices tell him to kill himself. Patient states that the voices come and go throughout the day and night. Patient verbalizes visual hallucinations of "shadows". Patient denies homicidal ideations. Patient verbalizes mild paranoia, no delusional statements noted on assessment. Patient verbalizes that he goes to the [facility]. Patient denies substance use. Patient verbalizes alcohol use 3- 4x/week and last drink Wednesday night (07/07/24). Patient verbalizes history of withdrawal symptoms and seizures with withdrawal. Patient states he walks with a walker because he is unsteady on his feet. Patient denies any issues maintaining his ADLs independently. Patient verbalizes poor appetite with inability to eat/drink the last 5 days. Patient states he sleeps poorly getting approx 2-3 hours of sleep at night due to inability to stay asleep and struggles with nightmares. Patient denies legal history. Patient verbalizes medical history including Diabetes, Asthma, HTN, COPD, GERD, and HLD. Patient denies knowing what medications he takes at home besides Aspirin 81mg, Trazodone 100MG HS, and Hydroxyzine 50MG. Patient verbalizes he is sporatically compliant with his home medications." Patient has been to the ER multiple times for similar complaints, has been admitted psychiatrically several times as well in the past. Has a history of schizoaffective disorder goes to [facility] for treatment. Today, patient claims that he was feeling depressed overwhelmed and hopeless at the home. Describes problems with roommates and also claiming that he relapsed on drinking. Claims that he does not know how much she was drinking but he "blacked out". Claims that he wants to go to [place], claims that he called the police because he was feeling suicidal and depressed. Also endorsing anxiety at this time. Claims that his sleep has been on and off appetite has been on and off. Continues to have suicidal thoughts however no specific plan. Patient denies homicidal ideations intent or plan. At this time patient endorses auditory and visual hallucinations which appear to be chronic. Claims that he is drinking alcohol as noted above, also patient admits to using cigarettes. PAST PSYCHIATRIC HISTORY: Patient has a history of his affective disorder. The patient's home medications include Abilify and Trazodone, Remeron and melatonin and Zoloft. He has had previous trials of Prolixin Decanoate, Invega, and BuSpar. The patient was last hospitalized on this psychiatric unit in November 2023. He is open with [facility], sees Dr. Townsend as a psychiatrist and receives robust services. He reports no prior attempt at suicide in the past. PMH:As per ER note ALLERGIES: as per EMR CHEMICAL DEPENDENCY HISTORY: as per HPI FAMILY PSYCHIATRIC/SUBSTANCE USE HISTORY: Patient reports that his brother had depression. SOCIAL HISTORY: Patient was born and raised in [place]. He currently lives with roommates in an [facility] home. He is single, never , and has no children. He does have a guardian. He receives Social Security. He denies any legal issues. MENTAL STATUS EXAM: General Appearance: Patient appears to be thin, older than stated age, is alert, directable, and attempts to cooperate. Patient appears to have fair hygiene and grooming. Unshaven wearing a hospital gown. Behavior: Patient is seated without any agitated behavior. Fairly manipulative superficial Speech: Patient's speech is fluent and nonpressured. Mood/Affect: Patient reports their mood is depressed and anxious, affect is congruent and constricted. Suicidality/Homicidality: Patient denies having any homicidal ideation intent or plan. Admits to having suicidal ideations no intent or plan Perceptions: Patient endorses visual hallucinations and auditory hallucinations which are chronic Though content/process: There is no evidence of any delusional thought content and thought process is linear and goal-directed. Focused on his symptoms Memory and concentration: AOX3, grossly intact for the purposes of this session. Can spell "WORLD" backwards Judgment and insight: poor chronically STRENGTHS/WEAKNESSES: strength is that patient is resilient. Weakness is that patient has poor judgment and is impulsive and abuses alcohol INTELLECT: average IMPRESSIONS: Is affective disorder Alcohol use disorder, severe currently in withdrawal nicotine dependance PLAN: -Patient is admitted under voluntary status to MHU for stabilization of psychiatric symptoms and safety. Patient has signed adult voluntary form and medication consent and is placed in patient's chart. -Medications : Will start patient on Abilify 15mg daily for mood/psychosis, trazodone 150mg qhs for sleep/mood, Zoloft 50mg daily for mood/anxiety -Ativan and Haldol PRN for agitation/aggression -CIWA protocol with as needed Ativan, continue to monitor vital signs. Librium 25 mg 3 times daily scheduled with plan to taper down -Patient was counselled on substance abuse and desired to cut back on use, he also wants to go to [facility] upon discharge -Patient was informed of the risks, benefits and side effects of the medication and patient verbally consented to taking the medications. -Internal Medicine consult to perform medical evaluation and physical. -NRT - nicotine patch -SW on board for discharge planning. Encourage patient to participate in groups to work on coping skills. Awaiting rehab intake 07/10/24 12:32
[2024-07-10 12:47] LABS: Glucose,Whole Blood 150 mg/dL (70-110)
[2024-07-10] MEDS: chlordiazePOXIDE 25 MG CAP PO SCH (13:58)
[2024-07-10 17:41] LABS: Glucose,Whole Blood 131 mg/dL (70-110)
[2024-07-10] MEDS: MONTELUKAST 10 MG TAB PO SCH (20:01)
[2024-07-10] MEDS: traZODone HCL 50 MG TAB PO SCH (20:01)
[2024-07-10 20:11] LABS: Glucose,Whole Blood 234 mg/dL (70-110)
[2024-07-10] MEDS: INSULIN ASPART (NovoLOG) 100 UNIT/ML VIAL SQ SCH (20:11)
[2024-07-10 22:57] LABS: Glucose,Whole Blood 219 mg/dL (70-110)
[2024-07-11 00:47] LABS: Appearance,Urine Clear (Clear); Bilirubin,Urine Negative (Negative); Blood,Urine Negative (Negative); Color,Urine Colorless; Glucose,Urine (UA) 4+ (Negative); Ketones,Urine Negative (Negative); Leukocyte Esterase,Urine Negative (Negative); Nitrite,Urine Negative (Negative); Protein,Urine Negative (Negative); Specific Gravity,Urine 1.013 (1.001-1.035); Urobilinogen,Urine <2.0 mg/dL (<2.0)
[2024-07-11 07:46] LABS: Glucose,Whole Blood 198 mg/dL (70-110)
[2024-07-11] MEDS: SERTRALINE 50 MG TAB PO SCH (08:38)
--- NOTE | 2024-07-11 09:55 | P.PN ---
Progress Note - Text Progress Note Date: 07/11/24 Interval history: Patient was seen today for psychiatric follow-up. He was up out of his wheelc hair today. States that he is doing a bit better today with regards to his mood and anxiety. Claims that the medications have been helping him. He is reporting some minor withdrawal symptoms from the alcohol just minor shaking. We spoke about decreasing the Librium again which she is okay with. Claims that he did sleep fairly last night, appetite is improving mildly. Denies any suicidal thoughts today denies any auditory or visual hallucinations. Denies any homicidal ideations. Claims that his appetite is mildly improving. MENTAL STATUS EXAM: General Appearance: Patient appears to be thin, older than stated age, is alert, directable, and attempts to cooperate. Patient appears to have fair hygiene and grooming. Unshaven wearing a hospital gown. Behavior: Patient is seated without any agitated behavior. More cooperative today Speech: Patient's speech is fluent and nonpressured. Mood/Affect: Patient reports their mood is "a little anxious", affect is congruent Suicidality/Homicidality: Patient denies having any homicidal ideation intent or plan. Denies having any suicidal ideations no intent or plan Perceptions: Patient denies any visual hallucinations and auditory hallu cinations Though content/process: There is no evidence of any delusional thought content and thought process is linear and goal-directed. Focused on his symptoms and also discharge Memory and concentration: AOX3, grossly intact for the purposes of this session. Judgment and insight: poor chronically, improving mildly IMPRESSIONS: Is affective disorder Alcohol use disorder, severe currently in withdrawal nicotine dependance PLAN: -Patient is admitted under voluntary status to MHU for stabilization of psychiatric symptoms and safety. Patient has signed adult voluntary form and medication consent and is placed in patient's chart. -Medications : Abilify 15mg daily for mood/psychosis, trazodone 150mg qhs for sleep/mood, Zoloft 50mg daily for mood/anxiety, continue decreasing Librium 20 mg 3 times daily scheduled with plan to taper down -Ativan and Haldol PRN for agitation/aggression -CIWA protocol with as needed Ativan, continue to monitor vital signs. -NRT - nicotine patch -SW on board for discharge planning. Encourage patient to participate in groups to work on coping skills. Awaiting rehab intake. Hopeful for discharge either versus Wednesday
[2024-07-11 12:46] LABS: Glucose,Whole Blood 237 mg/dL (70-110)
[2024-07-11] MEDS: ALBUTEROL INHALER 60 PUFF/8 GM INHALER (MHU) INHALATION PRN (14:40)
[2024-07-11 17:37] LABS: Glucose,Whole Blood 95 mg/dL (70-110)
[2024-07-11] MEDS: NICOTINE GUM (POLACRILEX) 2 MG GUM BUCCAL PRN (18:44)
[2024-07-11 19:53] LABS: Glucose,Whole Blood 170 mg/dL (70-110)
[2024-07-12 08:01] LABS: Glucose,Whole Blood 147 mg/dL (70-110)
--- NOTE | 2024-07-12 09:59 | P.PN ---
Progress Note - Text Progress Note Date: 07/12/24 Interval history: Patient was seen today for psychiatric follow-up. Patient was standing near the nurses desk eager to speak to editorial writer. Claims that he is doing better today overall. Claims that his mood and anxiety been improving. Claims that he is taking his medications not reporting any side effects. He continues to be focused on wanting to go to [place] for rehab. Claims that he was not allowed to do the screening due to his guardian being involved. States that he slept very well last night. appetite is improving mildly. Denies any suicidal thoughts today denies any auditory or visual hallucinations. Denies any homicidal ideations. MENTAL STATUS EXAM: General Appearance: Patient appears to be thin, older than stated age, is alert, directable, and attempts to cooperate. Patient appears to have fair hygiene and grooming. Unshaven wearing a hospital gown. Behavior: Patient is seated without any agitated behavior. More cooperative today Speech: Patient's speech is fluent and nonpressured. Mood/Affect: Patient reports their mood is "I am doing good", affect is c ongruent Suicidality/Homicidality: Patient denies having any homicidal ideation intent or plan. Denies having any suicidal ideations no intent or plan Perceptions: Patient denies any visual hallucinations and auditory hallucinations Though content/process: There is no evidence of any delusional thought content and thought process is linear and goal-directed. Focused on his symptoms and also discharge Memory and concentration: AOX3, grossly intact for the purposes of this session. Judgment and insight: poor chronically, improving mildly IMPRESSIONS: Is affective disorder Alcohol use disorder, severe currently in withdrawal nicotine dependance PLAN: -Patient is admitted under voluntary status to MHU for stabilization of psychiatric symptoms and safety. Patient has signed adult voluntary form and medication consent and is placed in patient's chart. -Medications : Abilify 15mg daily for mood/psychosis, trazodone 150mg qhs for sleep/mood, Zoloft 50mg daily for mood/anxiety, continue decreasing Librium 10 mg 3 times daily scheduled with plan to taper down -Ativan and Haldol PRN for agitation/aggression -CIWA protocol with as needed Ativan, continue to monitor vital signs. -NRT - nicotine patch -SW on board for discharge planning. Encourage patient to participate in groups to work on coping skills. Awaiting rehab intake. Hopeful for discharge
[2024-07-12 12:28] LABS: Glucose,Whole Blood 169 mg/dL (70-110)
[2024-07-12 17:40] LABS: Glucose,Whole Blood 280 mg/dL (70-110)
[2024-07-12 19:51] LABS: Glucose,Whole Blood 240 mg/dL (70-110)
[2024-07-13 07:43] LABS: Glucose,Whole Blood 166 mg/dL (70-110)
[2024-07-13 07:50] VITALS: BP 104/71; PULSE 59; RESP 20; TEMP 96.6
[2024-07-13 08:00] LABS: HCT 45.8 % (39.0-53.0); HGB 15.5 gm/dL (13.0-17.5); MCH 28.8 pg (25.0-35.0); MCHC 33.8 g/dL (31.0-37.0); Mean Platelet Volume 7.7; Platelet Count 193 k/uL (150-450); RBC 5.38 m/uL (4.30-5.90); WBC 6.4 k/uL (3.8-10.6)
[2024-07-13 08:15] LABS: ALT 42 U/L (4-49); AST 33 U/L (17-59); African American GFR (CKD) >90 (>60 ml/min/1.73 sqM); Alkaline Phosphatase 103 U/L (38-126); Anion Gap 5 mmol/L; Blood Urea Nitrogen 16 mg/dL (9-20); Calcium 9.3 mg/dL (8.4-10.2); Carbon Dioxide 26 mmol/L (22-30); Chloride 107 mmol/L (98-107); Glucose 166 mg/dL (74-99); Non-African American GFR(CKD) >90 (>60 ml/min/1.73 sqM); Potassium 4.3 mmol/L (3.5-5.1); Sodium 138 mmol/L (137-145); Total Bilirubin 0.3 mg/dL (0.2-1.3); Total Protein 6.2 g/dL (6.3-8.2)
--- NOTE | 2024-07-13 11:16 | P.DS ---
Providers Date of admission: 07/09/24 14:18 Expected date of discharge: 07/13/24 Attending physician: Wisam Espinal MD Consults: 07/09/24 14:24 Consult Physician Routine Consulting Provider: Francisco Newell Consult Reason/Comments: History and Physical, New Admission Do you want consulting provider notified?: Yes Primary care physician: Bryan Martinez MD - Discharge Diagnosis(es) (1) Schizoaffective disorder Current Visit: Yes Status: Acute Priority: High (2) Alcohol use disorder Current Visit: Yes Status: Acute Priority: High (3) Nicotine dependence Current Visit: Yes Status: Acute Priority: Low Hospital Course: Admission HPI: Admission note was completed by comic writer "Patient is a 54 year old man, never , no children, lives in a [facility]. Unemployed. Receives SSD. Has public guardian. Patient presented to the hospital ansd was seen by EPS. As per EPS note, "Patient brought self to ED related to suicidal ideations, hallucinations, and unable to eat. Patient assessed in ER 14 from [id number]. Patient verbalizes he has been feeling down and depressed since Wednesday night when he was drinking alcohol. Patient states that he has been increasingly anxious and overwhelmed. Patient verbalizes suicidal ideation with a plan to OD on medications. Patient verbalizes that he has had an attempt in the past approx 1-2 years ago by putting a control area operator down his throat and OD on medications. Patient verbalizes auditory hallucinations "all day and night" and endorses that the voices tell him to kill himself. Patient states that the voices come and go throughout the day and night. Patient verbalizes visual hallucinations of "shadows". Patient denies homicidal ideations. Patient verbalizes mild paranoia, no delusional statements noted on assessment. Patient verbalizes that he goes to the [employer]. Patient denies substance use. Patient verbalizes alcohol use 3- 4x/week and last drink Wednesday night (07/07/24). Patient verbalizes history of withdrawal symptoms and seizures with withdrawal. Patient states he walks with a walker because he is unsteady on his feet. Patient denies any issues maintaining his ADLs independently. Patient verbalizes poor appetite with inability to eat/drink the last 5 days. Patient states he sleeps poorly getting approx 2-3 h ours of sleep at night due to inability to stay asleep and struggles with nightmares. Patient denies legal history. Patient verbalizes medical history including Diabetes, Asthma, HTN, COPD, GERD, and HLD. Patient denies knowing what medications he takes at home besides Aspirin 81mg, Trazodone 100MG HS, and Hydroxyzine 50MG. Patient verbalizes he is sporatically compliant with his home medications." Patient has been to the ER multiple times for similar complaints, has been admitted psychiatrically several times as well in the past. Has a history of schizoaffective disorder goes to [facility] for treatment. Today, patient claims that he was feeling depressed overwhelmed and hopeless at the home. Describes problems with roommates and also claiming that he relapsed on drinking. Claims that he does not know how much she was drinking but he "blacked out". Claims that he wants to go to [place], claims that he called the police because he was feeling suicidal and depressed. Also endorsing anxiety at this time. Claims that his sleep has been on and off appetite has been on and off. Continues to have suicidal thoughts however no specific plan. Patient denies homicidal ideations intent or plan. At this time patient endorses auditory and visual hallucinations which appear to be chronic. Claims that he is drinking alcohol as noted above, also patient admits to using cigarettes." Hospital course: Upon admission to the unit patient was directable and agreeable to commence treatment and signed adult voluntary form. Patient was initially going through withdrawals, depressed however with time and treatment he eventually got along well with other patients on the unit and followed unit protocol. Patient was compliant with the medications and denied any side effects throughout hospital course. Patient was started on his home dose of Abilify p.o. 15 mg daily for mood/psychosis, trazodone 150 mg nightly for sleep/mood, Zoloft 50 mg daily for mood/anxiety. Patient was placed on CIWA protocol with as needed Ativan. He was gradually tapered off a scheduled dose of Librium for alcohol withdrawal. He was not interested in anticraving medications at this time. Patient spoke of his stressors and engaged in therapy both group and individual. Patient was also seen by medical team for history and physical exam. Throughout the course of the hospitalization patient gradually improved with regards to mood, anxiety, suicidal thoughts, psychosis, sleep and returned back to their baseline level of functioning. On the day of discharge patient denied any suicidal or homicidal ideations intent or plan denied any auditory or visual hallucinations. Patient endorsed wanting to live for their health and family. The patient denied any access to guns or weapons. Patient denied any paranoia and did not endorse any delusions. Patient does have a significant history of substance abuse and was counseled on abstaining from all substances including alcohol and marijuana. Patient elected to do outpatient substance use treatment program through their outpatient provider. Patient was also counseled on the medications and need for regular compliance and was encouraged to follow-up with their outpatient appointment for mental health and also for primary care. Patient will be discharged today back home, will be following up at [facility] Mental status exam: General Appearance: Patient appears to be wearing hospital gown, stated age is alert, pleasant, and cooperative. Patient is in no acute distress and has improved hygiene and grooming Behavior: Patient is calmly seated without any agitated behavior. Speech: Patient's speech is fluent and nonpressured. Mood/Affect: Patient reports their mood is "good", affect is congruent and euthymic. Suicidality/Homicidality: Patient denies having any suicidal or homicidal ideation intent or plan. Perceptions: Patient denies any auditory or visual hallucinations. Though content/process: There is no evidence of any delusional thought content and thought process is linear and goal-directed. More future oriented Memory and concentration: AOX3, grossly intact for the purposes of this session. Can spell "WORLD" backwards correctly. Judgment and insight: Chronically poor, however has improved with guarded prognosis Impression: Schizoaffective disorder Alcohol use disorder Nicotine dependence Plan: -Continue with discharge today as patient has improved and stabilized psychiatrically and is not currently an imminent threat to themself and/or others. Patient will remain at chronically elevated risk for harm to self and/or others due to their impulsivity and substance abuse. -Continue medications: Abilify p.o. 50 mg daily for mood/psychosis, trazodone 150 mg nightly for sleep/mood, Zoloft 50 mg daily for mood/anxiety -Patient was counseled on the need for medication compliance and appropriate follow-up at mental health and also primary care for medical issues. Patient verbalized understanding and agreed. -Social work to help coordinate patients discharge today. also to ensure safe home environment that guns/weapons are either removed from the home or locked away. Social work also to arrange for patients follow up appointments with [facility] for psychiatric care along with follow up with primary care provider. -Patient counseled on abstaining from recreational drugs and marijuana and alcohol. Was informed/educated on the adverse effects on their physical and mental health. Patient verbally agreed and understood. -Patient was instructed to return to the hospital or seek immediate medical care if their psychiatric or medical symptoms do worsen or reoccur. Allergies Allergy/AdvReac Type Severity Reaction Status Date / Time dicyclomine HCl [From Bentyl] Allergy Unknown Dyspnea Verified 07/09/24 14:21 latex Allergy Unknown Rash/Hives Verified 07/09/24 14:21 Benzoate Analogues Allergy Unknown Verified 07/09/24 14:21 nitrofurantoin Allergy Nausea Verified 07/09/24 14:21 [From Macrobid] Penicillins Allergy "Lissie Verified 07/09/24 14:21 funny" adhesive AdvReac Unknown Itching Verified 07/09/24 14:21 ciprofloxacin AdvReac Unknown Nausea Verified 07/09/24 14:21 Macrolide Antibiotics AdvReac Unknown Nausea Verified 07/09/24 14:21 sulfamethoxazole AdvReac Unknown Unknown Verified 07/09/24 14:21 [From Bactrim] trimethoprim [From Bactrim] AdvReac Unknown Unknown Verified 07/09/24 14:21 diphenhydramine AdvReac Confusion Verified 07/09/24 14:21 [From Benadryl] Laboratory Results WBC 6.4 k/uL (3.8-10.6) 07/13/24 06:43 RBC 5.38 m/uL (4.30-5.90) 07/13/24 06:43 Hgb 15.5 gm/dL (13.0-17.5) 07/13/24 06:43 Hct 45.8 % (39.0-53.0) 07/13/24 06:43 MCV 85.0 fL (80.0-100.0) 07/13/24 06:43 MCH 28.8 pg (25.0-35.0) 07/13/24 06:43 MCHC 33.8 g/dL (31.0-37.0) 07/13/24 06:43 RDW 15.0 % (11.5-15.5) 07/13/24 06:43 Plt Count 193 k/uL (150-450) 07/13/24 06:43 MPV 7.7 07/13/24 06:43 Neutrophils % 67 % 07/10/24 04:15 Lymphocytes % 21 % 07/10/24 04:15 Monocytes % 6 % 07/10/24 04:15 Eosinophils % 4 % 07/10/24 04:15 Basophils % 0 % 07/10/24 04:15 Neutrophils # 3.2 k/uL (1.3-7.7) 07/10/24 04:15 Lymphocytes # 1.0 k/uL (1.0-4.8) 07/10/24 04:15 Monocytes # 0.3 k/uL (0-1.0) 07/10/24 04:15 Eosinophils # 0.2 k/uL (0-0.7) 07/10/24 04:15 Basophils # 0.0 k/uL (0-0.2) 07/10/24 04:15 Sodium 138 mmol/L (137-145) 07/13/24 06:43 Potassium 4.3 mmol/L (3.5-5.1) 07/13/24 06:43 Chloride 107 mmol/L (98-107) 07/13/24 06:43 Carbon Dioxide 26 mmol/L (22-30) 07/13/24 06:43 Anion Gap 5 mmol/L 07/13/24 06:43 BUN 16 mg/dL (9-20) 07/13/24 06:43 Creatinine 0.76 mg/dL (0.66-1.25) 07/13/24 06:43 Est GFR (CKD-EPI)AfAm >90 (>60 ml/min/1.73 sqM) 07/13/24 06:43 Est GFR (CKD-EPI)NonAf >90 (>60 ml/min/1.73 sqM) 07/13/24 06:43 Glucose 166 mg/dL (74-99) H 07/13/24 06:43 POC Glucose (mg/dL) 166 mg/dL (70-110) H 07/13/24 07:42 POC Glu [employer] Equipment Operator ID Palmira Galarza 07/13/24 07:[address] Glu mg/dL 194 mg/dL 07/10/24 04:15 Hemoglobin A1c 8.4 % (<=6.0) H 07/10/24 04:15 Calcium 9.3 mg/dL (8.4-10.2) 07/13/24 06:43 Total Bilirubin 0.3 mg/dL (0.2-1.3) 07/13/24 06:43 Conjugated Bilirubin 0.0 mg/dL (0.0-0.3) 07/10/24 04:15 Unconjugated Bilirubin 0.3 mg/dL (0.0-1.1) 07/10/24 04:15 Delta Bilirubin 0.0 mg/dL (0.0-0.2) 07/10/24 04:15 AST 33 U/L (17-59) 07/13/24 06:43 ALT 42 U/L (4-49) 07/13/24 06:43 Alkaline Phosphatase 103 U/L (38-126) 07/13/24 06:43 Troponin I <0.012 ng/mL (0.000-0.034) 07/10/24 09:56 Total Protein 6.2 g/dL (6.3-8.2) L 07/13/24 06:43 Albumin 4.0 g/dL (3.5-5.0) 07/13/24 06:43 Triglycerides 277.00 mg/dL (0.00-149.00) H 07/10/24 04:15 Cholesterol 142.00 mg/dL (0.00-200.00) 07/10/24 04:15 LDL Cholesterol, Calc 40.1 mg/dL (0.0-131.0) 07/10/24 04:15 VLDL Cholesterol, Calc 55.40 mg/dL (5.00-40.00) H 07/10/24 04:15 HDL Cholesterol 46.50 mg/dL (40.00-60.00) 07/10/24 04:15 Cholesterol/HDL Ratio 3.05 Ratio 07/10/24 04:15 TSH 1.100 mIU/L (0.465-4.680) 07/10/24 04:15 Urine Color Colorless 07/10/24 23:50 Urine Appearance Clear (Clear) 07/10/24 23:50 Urine pH 6.0 (5.0-8.0) 07/10/24 23:50 Ur Specific [place] 1.013 (1.001-1.035) 07/10/24 23:50 Urine Protein Negative (Negative) 07/10/24 23:50 Urine Glucose (UA) 4+ (Negative) H 07/10/24 23:50 Urine Ketones Negative (Negative) 07/10/24 23:50 Urine Blood Negative (Negative) 07/10/24 23:50 Urine Nitrite Negative (Negative) 07/10/24 23:50 Urine Bilirubin Negative (Negative) 07/10/24 23:50 Urine Urobilinogen <2.0 mg/dL (<2.0) 07/10/24 23:50 Ur Leukocyte Esterase Negative (Negative) 07/10/24 23:50 Urine Opiates Screen Not Detected (NotDetected) 07/09/24 10:37 Ur Oxycodone Screen Not Detected (NotDetected) 07/09/24 10:37 Urine Methadone Screen Not Detected (NotDetected) 07/09/24 10:37 Ur Barbiturates Screen Not Detected (NotDetected) 07/09/24 10:37 U Tricyclic Antidepress Not Detected (NotDetected) 07/09/24 10:37 Ur Phencyclidine Scrn Not Detected (NotDetected) 07/09/24 10:37 Ur Amphetamines Screen Not Detected (NotDetected) 07/09/24 10:37 U Methamphetamines Scrn Not Detected (NotDetected) 07/09/24 10:37 U Benzodiazepines Scrn Not Detected (NotDetected) 07/09/24 10:37 Urine Cocaine Screen Not Detected (NotDetected) 07/09/24 10:37 U Marijuana (THC) Screen Not Detected (NotDetected) 07/09/24 10:37 SARS-CoV-2 (PCR) Not Detected (Not Detectd) 07/09/24 10:37 Vital Signs Temp 96.6 F L 07/13/24 07:49 Pulse 59 L 07/13/24 07:49 Resp 20 07/13/24 07:49 BP 104/71 07/13/24 07:49 Pulse Ox 100 07/13/24 07:49 FiO2 Patient Condition at Discharge: Stable Plan - Discharge Summary Discharge Rx Participant: No New Discharge Prescriptions: New Folic Acid 1 mg PO DAILY 30 Days #30 tab Nicotine 21Mg/24Hr Patch [Habitrol] 1 patch TRANSDERM DAILY 14 Days #14 patch Multivitamins, Thera [Multivitamin (formulary)] 1 each PO DAILY 30 Days #30 tab Nicotine Gum (Polacrilex) [Nicorette] 2 mg BUCCAL Q4HR PRN 30 Days #180 pieceofgum PRN Reason: Nicotine Cravings traZODone HCL 150 mg PO HS 30 Days #30 tablet Thiamine [Vitamin B-1] 100 mg PO DAILY 30 Days #30 tab Sertraline [Zoloft] 50 mg PO DAILY 30 Days #30 tab Ibuprofen [Motrin] 600 mg PO Q6HR PRN 30 Days #120 tab PRN Reason: Moderate Pain (Scale 4 To 6) Acetaminophen Tab [Tylenol] 650 mg PO Q4HR PRN tab PRN Reason: Mild Pain (Scale 1 To 3) Continue Nitroglycerin Sl Tabs [Nitrostat] 0.4 mg SL Q5M PRN PRN Reason: Chest Pain Ibuprofen [Motrin] 600 mg PO TID PRN PRN Reason: pain Fluticasone Nasal [place] [Flonase Nasal [place]] 1 spray EA NOSTRIL BID 30 Days #1 ml Insulin Lispro [humaLOG Kwikpen] 1 - 7 unit SQ AC-TID 30 Days #1 each Atorvastatin [Lipitor] 10 mg PO HS 30 Days #30 tab amLODIPine [Norvasc] 10 mg PO HS 30 Days #30 tab Pantoprazole [Protonix] 40 mg PO DAILY 30 Days #30 tab Montelukast [Singulair] 10 mg PO HS 30 Days #30 tab Albuterol Inhaler [Ventolin Hfa Inhaler] 2 puff INHALATION RT-Q6H PRN 30 Days #1 each PRN Reason: Shortness Of Breath Cholecalciferol (Vitamin D3) [Vitamin D3 (50 Mcg = 2000 Iu)] 50 mcg PO DAILY 30 Days #30 tab Famotidine [Pepcid] 20 mg PO BID PRN 30 Days #60 tab PRN Reason: Heartburn Cholestyramine/Aspartame [Questran Light Powder] 4 gm PO TID PRN PRN Reason: Diarrhea ondansetron HCL [Zofran] 8 mg PO DAILY ARIPiprazole [Abilify] 15 mg PO DAILY 30 Days #30 tab Aspirin EC [Ecotrin Low Dose] 81 mg PO DAILY 30 Days #30 tab Empagliflozin [Jardiance] 25 mg PO DAILY 30 Days #30 tab Insulin Glargine,Hum.rec.anlog [Lantus Solostar Pen] 15 units SQ HS 30 Days #1 each Lidocaine 5% Patch [Lidoderm 5% Patch] 1 - 3 patch TRANSDERM DAILY 30 Days #30 patch Budesonide/Formoterol Fumarate [Symbicort 80-4.5 Mcg Inhaler] 2 puff INHALATION RT-BID 30 Days #1 each Discontinued Sertraline [Zoloft] 100 mg PO HS 30 Days #30 tab Benzonatate [Tessalon Perles] 100 mg PO TID PRN PRN Reason: Cough Orphenadrine Citrate [Orphenadrine Citrate ER] 100 mg PO BID polyethylene glycoL 3350 [Miralax] 17 gm PO DAILY traZODone HCL [Desyrel] 100 mg PO HS PRN PRN Reason: sleep Potassium Chloride [Klor-Con 20 Packets] 20 meq PO DAILY Albuterol Nebulized [Ventolin Nebulized] 2.5 mg INHALATION RT-Q6H PRN PRN Reason: Shortness Of Breath hydrOXYzine pamoate [Vistaril] 25 mg PO BID PRN PRN Reason: Anxiety Loperamide [Imodium] 2 mg PO DAILY Discharge Medication List Nitroglycerin Sl Tabs [Nitrostat] 0.4 mg SL Q5M PRN 08/20/23 [History] Famotidine [Pepcid] 20 mg PO BID PRN 30 Days #60 tab 12/13/23 [Rx] Cholestyramine/Aspartame [Questran Light Powder] 4 gm PO TID PRN 07/09/24 [History] Ibuprofen [Motrin] 600 mg PO TID PRN 07/09/24 [History] ondansetron HCL [Zofran] 8 mg PO DAILY 07/09/24 [History] ARIPiprazole [Abilify] 15 mg PO DAILY 30 Days #30 tab 07/13/24 [Rx] Acetaminophen Tab [Tylenol] 650 mg PO Q4HR PRN tab 07/13/24 [Rx] Albuterol Inhaler [Ventolin Hfa Inhaler] 2 puff INHALATION RT-Q6H PRN 30 Days #1 each 07/13/24 [Rx] Aspirin EC [Ecotrin Low Dose] 81 mg PO DAILY 30 Days #30 tab 07/13/24 [Rx] Atorvastatin [Lipitor] 10 mg PO HS 30 Days #30 tab 07/13/24 [Rx] Budesonide/Formoterol Fumarate [Symbicort 80-4.5 Mcg Inhaler] 2 puff INHALATION RT-BID 30 Days #1 each 07/13/24 [Rx] Cholecalciferol (Vitamin D3) [Vitamin D3 (50 Mcg = 2000 Iu)] 50 mcg PO DAILY 30 Days #30 tab 07/13/24 [Rx] Empagliflozin [Jardiance] 25 mg PO DAILY 30 Days #30 tab 07/13/24 [Rx] Fluticasone Nasal [place] [Flonase Nasal [place]] 1 spray EA NOSTRIL BID 30 Days #1 ml 07/13/24 [Rx] Folic Acid 1 mg PO DAILY 30 Days #30 tab 07/13/24 [Rx] Ibuprofen [Motrin] 600 mg PO Q6HR PRN 30 Days #120 tab 07/13/24 [Rx] Insulin Glargine,Hum.rec.anlog [Lantus Solostar Pen] 15 units SQ HS 30 Days #1 each 07/13/24 [Rx] Insulin Lispro [humaLOG Kwikpen] 1 - 7 unit SQ AC-TID 30 Days #1 each 07/13/24 [Rx] Lidocaine 5% Patch [Lidoderm 5% Patch] 1 - 3 patch TRANSDERM DAILY 30 Days #30 patch 07/13/24 [Rx] Montelukast [Singulair] 10 mg PO HS 30 Days #30 tab 07/13/24 [Rx] Multivitamins, Thera [Multivitamin (formulary)] 1 each PO DAILY 30 Days #30 tab 07/13/24 [Rx] Nicotine 21Mg/24Hr Patch [Habitrol] 1 patch TRANSDERM DAILY 14 Days #14 patch 07/13/24 [Rx] Nicotine Gum (Polacrilex) [Nicorette] 2 mg BUCCAL Q4HR PRN 30 Days #180 pieceofgum 07/13/24 [Rx] Pantoprazole [Protonix] 40 mg PO DAILY 30 Days #30 tab 07/13/24 [Rx] Sertraline [Zoloft] 50 mg PO DAILY 30 Days #30 tab 07/13/24 [Rx] Thiamine [Vitamin B-1] 100 mg PO DAILY 30 Days #30 tab 01/16/25 [Rx] amLODIPine [Norvasc] 10 mg PO HS 30 Days #30 tab 07/13/24 [Rx] traZODone HCL 150 mg PO HS 30 Days #30 tablet 07/13/24 [Rx] Follow up Appointment(s)/Referral(s): [facility] [Outside] - 07/18/24 5:15 pm (07/18/2024 5:15PM - 6:15PM [facility] 07/25/2024 1:30PM - 2:30PM CATY ZHAO) Bryan Martinez MD [Primary Care Provider] - 1-2 days Patient Instructions/Handouts: How to Stop Smoking (DC), Schizoaffective Disorder (GEN), Abuse of Alcohol (ED) Activity/Diet/Wound Care/Special Instructions: [facility] Discharge Info Avoid the use of street drugs and alcohol. Take all medications as prescribed. When you are in need of refills on your medications, please contact your outpatient medical provider and/or outpatient psychiatrist. Please go to your scheduled outpatient appointments for aftercare treatment. If symptoms return or become worse, call the crisis line at or and/or visit the nearest emergency room for assistance. National Suicide and Crisis Lifeline - call or text 883 Discharge Disposition: HOME SELF-CARE
== END 2024-07-13 12:29 | disposition home or self-care (01) | DRG 885 ==
LOC: EC 10:04 → 3MHU 14:18
PROVIDERS: ADMIT Psychiatry & Neurology Psychiatry; ATTEND Psychiatry & Neurology Psychiatry
DX: F25.9 Schizoaffective disorder, unspecified (principal); F10.239 Alcohol dependence with withdrawal, unspecified; R45.851 Suicidal ideations; F17.210 Nicotine dependence, cigarettes, uncomplicated; E11.9 Type 2 diabetes mellitus without complications; I10 Essential (primary) hypertension; E78.5 Hyperlipidemia, unspecified; J44.89 Other specified chronic obstructive pulmonary disease; K21.9 Gastro-esophageal reflux disease without esophagitis; G40.909 Epilepsy, unspecified, not intractable, without status epilepticus; G47.30 Sleep apnea, unspecified; F31.9 Bipolar disorder, unspecified; J45.40 Moderate persistent asthma, uncomplicated; Z56.0 Unemployment, unspecified; Z91.040 Latex allergy status; Z88.0 Allergy status to penicillin; Z88.8 Allergy status to other drugs, medicaments and biological substances; Z79.4 Long term (current) use of insulin; Z79.82 Long term (current) use of aspirin; Z86.73 Personal history of transient ischemic attack (TIA), and cerebral infarction without residual deficits; Z79.84 Long term (current) use of oral hypoglycemic drugs; Z91.048 Other nonmedicinal substance allergy status; Z79.899 Other long term (current) drug therapy; Z79.51 Long term (current) use of inhaled steroids
CPT/HCPCS: 36415; 80053; 80061; 80306; 81003; 82075; 82248; 83036; 84443; 84484; 85025; 85027; 87635; 93005; 99285

== ENCOUNTER 2024-07-29 15:51 | Emergency (ER) | payer OTHER ==
[2024-07-29 16:17] VITALS: TEMP 98.9
[2024-07-29] MEDS: ACETAMINOPHEN TAB 325 MG TAB PO STA (16:37)
--- NOTE | 2024-07-29 17:07 | ED ---
Psych HPI - General Chief Complaint: Psychiatric Symptoms Stated Complaint: suicidal ideation Time Seen by Provider: 07/29/24 16:21 Source: patient Mode of arrival: ambulatory - History of Present Illness Initial Comments: This is a 54-year-old male well-known to our ER presenting with chief complaint of "I am depressed". States that he is unhappy with his living situation. No h omicidal ideation. No plan to harm himself. No other complaints. - Related Data Home Medications Medication Instructions Recorded Confirmed Nitroglycerin Sl Tabs [Nitrostat] 0.4 mg SL Q5M PRN 08/20/23 07/09/24 Cholestyramine/Aspartame [Questran 4 gm PO TID PRN 07/09/24 07/09/24 Light Powder] Ibuprofen [Motrin] 600 mg PO TID PRN 07/09/24 07/09/24 ondansetron HCL [Zofran] 8 mg PO DAILY 07/09/24 07/09/24 Previous Rx's Medication Instructions Recorded Famotidine [Pepcid] 20 mg PO BID PRN 30 Days #60 tab 12/13/23 ARIPiprazole [Abilify] 15 mg PO DAILY 30 Days #30 tab 07/13/24 Acetaminophen Tab [Tylenol] 650 mg PO Q4HR PRN tab 07/13/24 Albuterol Inhaler [Ventolin Hfa 2 puff INHALATION RT-Q6H PRN 30 07/13/24 Inhaler] Days #1 each Aspirin EC [Ecotrin Low Dose] 81 mg PO DAILY 30 Days #30 tab 07/13/24 Atorvastatin [Lipitor] 10 mg PO HS 30 Days #30 tab 07/13/24 Budesonide/Formoterol Fumarate 2 puff INHALATION RT-BID 30 Days 07/13/24 [Symbicort 80-4.5 Mcg Inhaler] #1 each Cholecalciferol (Vitamin D3) 50 mcg PO DAILY 30 Days #30 tab 07/13/24 [Vitamin D3 (50 Mcg = 2000 Iu)] Empagliflozin [Jardiance] 25 mg PO DAILY 30 Days #30 tab 07/13/24 Fluticasone Nasal [place] [Flonase 1 spray EA NOSTRIL BID 30 Days #1 07/13/24 Nasal [place]] ml Folic Acid 1 mg PO DAILY 30 Days #30 tab 07/13/24 Ibuprofen [Motrin] 600 mg PO Q6HR PRN 30 Days #120 tab 07/13/24 Insulin Glargine,Hum.rec.anlog 15 units SQ HS 30 Days #1 each 07/13/24 [Lantus Solostar Pen] Insulin Lispro [humaLOG Kwikpen] 1 - 7 unit SQ AC-TID 30 Days #1 07/13/24 each Lidocaine 5% Patch [Lidoderm 5% 1 - 3 patch TRANSDERM DAILY 30 07/13/24 Patch] Days #30 patch Montelukast [Singulair] 10 mg PO HS 30 Days #30 tab 07/13/24 Multivitamins, Thera [Multivitamin 1 each PO DAILY 30 Days #30 tab 07/13/24 (formulary)] Nicotine 21Mg/24Hr Patch [Habitrol] 1 patch TRANSDERM DAILY 14 Days 07/13/24 #14 patch Nicotine Gum (Polacrilex) 2 mg BUCCAL Q4HR PRN 30 Days #180 07/13/24 [Nicorette] pieceofgum Pantoprazole [Protonix] 40 mg PO DAILY 30 Days #30 tab 07/13/24 Sertraline [Zoloft] 50 mg PO DAILY 30 Days #30 tab 07/13/24 Thiamine [Vitamin B-1] 100 mg PO DAILY 30 Days #30 tab 07/13/24 amLODIPine [Norvasc] 10 mg PO HS 30 Days #30 tab 07/13/24 traZODone HCL 150 mg PO HS 30 Days #30 tablet 07/13/24 Allergies Allergy/AdvReac Type Severity Reaction Status Date / Time dicyclomine HCl [From Bentyl] Allergy Unknown Dyspnea Verified 07/29/24 16:16 latex Allergy Unknown Rash/Hives Verified 07/29/24 16:16 Benzoate Analogues Allergy Unknown Verified 07/29/24 16:16 nitrofurantoin Allergy Nausea Verified 07/29/24 16:16 [From Macrobid] Penicillins Allergy "Voorhees Verified 07/29/24 16:16 funny" adhesive AdvReac Unknown Itching Verified 07/29/24 16:16 ciprofloxacin AdvReac Unknown Nausea Verified 07/29/24 16:16 Macrolide Antibiotics AdvReac Unknown Nausea Verified 07/29/24 16:16 sulfamethoxazole AdvReac Unknown Unknown Verified 07/29/24 16:16 [From Bactrim] trimethoprim [From Bactrim] AdvReac Unknown Unknown Verified 07/29/24 16:16 diphenhydramine AdvReac Confusion Verified 07/29/24 16:16 [From Benadryl] Review of Systems ROS Statement: Those systems with pertinent positive or pertinent negative responses have been documented in the HPI. ROS Other: All systems not noted in ROS Statement are negative. Past Medical History Past Medical History: Asthma, Chest Pain / Angina, COPD, CVA/TIA, Diabetes Mellitus, GERD/Reflux, Hearing Disorder / Deafness, Hyperlipidemia, Hypertension, Liver Disease, Osteoarthritis (OA), Pneumonia, Seizure Disorder, Sleep Apnea/CPAP/BIPAP Additional Past Medical History / Comment(s): states CVA at 35 yrs old, no weakness @ this time. states seizure at 35 yrs old., DDD- back & neck pain., carpal tunnel syndrome. Has [employer] public guardian. History of Any Multi-Drug Resistant Organisms: None Reported Past Surgical History: Heart Catheterization, Orthopedic Surgery Additional Past Surgical History / Comment(s): Cysts removed, left thumb surgery, colonoscopy 08/24/2019. Skin tags removed from both eyes. Past Anesthesia/Blood Transfusion Reactions: Unable to Obtain, Motion Sickness, Postoperative Nausea & Vomiting (PONV) Past Psychological History: Anxiety, Bipolar, Depression, Schizophrenia Smoking Status: Current every day smoker Past Alcohol Use History: None Reported Past Drug Use History: None Reported - Past Family History Brother(s) Family Medical History: Diabetes Mellitus Additional Family Medical History / Comment(s): Patient has 2 brothers. One from complications from diabetes. The second is alive with diabetes. Sister(s) Family Medical History: Cancer Additional Family Medical History / Comment(s): Patient has one sister with breast cancer. Patient does not have any children. Father Family Medical History: Cancer Additional Family Medical History / Comment(s): Father in his 40s or 50s from colon cancer. Mother Family Medical History: Cancer Additional Family Medical History / Comment(s): Mother at age 68 from lung cancer. General Exam Limitations: no limitations General appearance: alert, in no apparent distress Head exam: Present: atraumatic, normocephalic, normal inspection Eye exam: Present: normal appearance, EOMI Neck exam: Present: normal inspection. Absent: meningismus Respiratory exam: Absent: respiratory distress Cardiovascular Exam: Present: regular rate Neurological exam: Present: alert, oriented X3 Psychiatric exam: Present: normal affect, normal mood Skin exam: Present: warm, dry Course Vital Signs 07/29/24 16:12 Temperature 98.9 F Pulse Rate 68 Respiratory 18 Rate Blood Pressure 125/78 O2 Sat by Pulse 97 Oximetry Medical Decision Making - Medical Decision Making Was pt. sent in by a medical professional or institution (, PA, MASTER IN CHANCERY, urgent care, hospital, or long term...) When possible be specific @ -No Did you speak to anyone other than the patient for history (EMS, parent, family, police, friend...)? What history was obtained from this source @ -No Did you review nursing and triage notes (agree or disagree)? Why? @ -I reviewed and agree with nursing and triage notes Were old charts reviewed (outside hosp., previous admission, EMS record, old EKG, old radiological studies, urgent care reports/EKG's, long term records)? Report findings @ -No old charts were reviewed Differential Diagnosis (chest pain, altered mental status, abdominal pain women, abdominal pain men, vaginal bleeding, weakness, fever, dyspnea, syncope, headache, dizziness, GI bleed, back pain, seizure, CVA, palpatations, mental health, musculoskeletal)? @ -Differential Mental Health Depression, anxiety, bipolar, psychosis, schizophrenia, borderline personality, situational depression, adjustment disorder, behavioral disorder, brain tumor, malingering, substance abuse, encephalopathy, medication reaction, dementia, hypothyroidism, degenerative neurologic disorder, lupus.... This is not meant to be all-inclusive list EKG interpreted by me (3pts min.). @ -As above X-rays interpreted by me (1pt min.). @ -None done CT interpreted by me (1pt min.). @ -None done U/S interpreted by me (1pt. min.). @ -None done What testing was considered but not performed or refused? (CT, X-rays, U/S, labs)? Why? @ -None What meds were considered but not given or refused? Why? @ -None Did you discuss the management of the patient with other professionals (professionals i.e. , PA, MASTER IN CHANCERY, lab, RT, psych nurse, psychotherapist social worker, livestock nutrition territory manager, teacher, correctional officer, special education case manager)? Give summary @ -Spoke with the EPS nurse who recommends discharge home, she formed a safety plan with the patient and will contact his guardian Was smoking cessation discussed for >3mins.? @ -No Was critical care preformed (if so, how long)? @ -No Were there social determinants of health that impacted care today? How? (Homelessness, low income, unemployed, alcoholism, drug addiction, transportation, low edu. Level, literacy, decrease access to med. care, fci, rehab)? @ -No Was there de-escalation of care discussed even if they declined (Discuss DNR or withdrawal of care, Hospice)? DNR status @ -No What co-morbidities impacted this encounter? (DM, HTN, Smoking, COPD, CAD, Cancer, CVA, ARF, Chemo, Hep., AIDS, mental health diagnosis, sleep apnea, morbid obesity)? @ -None Was patient admitted / discharged? Hospital course, mention meds given and route, prescriptions, significant lab abnormalities, going to OR and other pertinent info. @ -54-year-old male presenting with chief complaint of "I am depressed". Patient has been seen in our ER multiple occasions. History and physical examination are conducted. Patient is medically cleared and evaluated by EPS. By their assessment the patient can be safely discharged home, they will contact his guardian to discuss placement as he is unhappy with his living situation. Follow-up with PCP. Report back to ER with any new or worsening symptoms. Discussed return parameters and answered all questions. Patient conveyed verbal understanding and agreed to the plan. I discussed this case in detail with my attending Dr. Sheppard Undiagnosed new problem with uncertain prognosis? @ -No Drug Therapy requiring intensive monitoring for toxicity (Heparin, Nitro, Insulin, Cardizem)? @ -No Were any procedures done? @ -No Diagnosis/symptom? @ -Adjustment reaction of adult life Acute, or Chronic, or Acute on Chronic? @ -Acute Uncomplicated (without systemic symptoms) or Complicated (systemic symptoms)? @ -Uncomplicated Side effects of treatment? @ -No Exacerbation, Progression, or Severe Exacerbation? @ -No Poses a threat to life or bodily function? How? (Chest pain, [place], [place], pneumonia, PE, COPD, DKA, ARF, appy, cholecystitis, CVA, Diverticulitis, Homicidal, Suicidal, threat to staff... and all critical care pts) @ -Unlikely - Lab Data Lab Results 07/29/24 Range/Units 17:09 Urine Opiates Screen Not Detected (NotDetected) Ur Oxycodone Screen Not Detected (NotDetected) Urine Methadone Screen Not Detected (NotDetected) Ur Barbiturates Screen Not Detected (NotDetected) U Tricyclic Antidepress Not Detected (NotDetected) Ur Phencyclidine Scrn Not Detected (NotDetected) Ur Amphetamines Screen Not Detected (NotDetected) U Methamphetamines Scrn Not Detected (NotDetected) U Benzodiazepines Scrn Detected H (NotDetected) Urine Cocaine Screen Not Detected (NotDetected) U Marijuana (THC) Screen Not Detected (NotDetected) Disposition Clinical Impression: Adjustment reaction of adult life Disposition: HOME SELF-CARE Condition: Good Instructions (If sedation given, give patient instructions): Depression (ED) Additional Instructions: Follow-up with PCP and [facility]. Report back to ER with any new or worsening symptoms. Follow safety plan Is patient prescribed a controlled substance at d/c from ED?: No Referrals: Bryan Martinez MD [Primary Care Provider] - 1-2 days Time of Disposition: 18:24
[2024-07-29 17:24] LABS: Amphetamine Screen,Urine Not Detected (NotDetected); Barbiturate Screen,Urine Not Detected (NotDetected); Benzodiazepines Screen,Urine Detected (NotDetected); Cocaine Screen,Urine Not Detected (NotDetected); Methadone Screen, Urine Not Detected (NotDetected); Opiate Screen,Urine Not Detected (NotDetected); Oxycodone Screen, Urine Not Detected (NotDetected); Phencyclidine Screen,Urine Not Detected (NotDetected); Tricyclic Antidepressant,Urine Not Detected (NotDetected); Urn Cannabinoid Scrn Not Detected (NotDetected)
[2024-07-29 18:52] VITALS: BP 128/72; PULSE 60; RESP 17
== END 2024-07-29 18:54 | disposition home or self-care (01) ==
LOC: EC 15:51
DX: F43.21 Adjustment disorder with depressed mood (principal); F17.200 Nicotine dependence, unspecified, uncomplicated; Z88.1 Allergy status to other antibiotic agents; Z88.0 Allergy status to penicillin; Z88.2 Allergy status to sulfonamides; Z88.8 Allergy status to other drugs, medicaments and biological substances; Z91.040 Latex allergy status; Z91.048 Other nonmedicinal substance allergy status
CPT/HCPCS: 80306; 82075; 99285

== ENCOUNTER → 2024-08-22 | Outpatient (CLI) | payer OTHER ==
--- NOTE | 2024-08-22 08:01 | US ---
EXAMINATION TYPE: US abdomen complete DATE OF EXAM: 08/22/2024 COMPARISON: NONE CLINICAL INDICATION: Male, 54 years old with history of R10.84 ABD PAIN R11.0 NAUSEA; abd pain and na usea TECHNIQUE: Grayscale and color Doppler imaging of the abdomen was performed. FINDINGS: EXAM MEASUREMENTS: Liver Length: 16.4 cm Gallbladder Wall: 0.2 cm CBD: 0.4 cm, color Doppler imaging was utilized to isolate the common bile duct for measurement. Spleen: 15.6 cm Right Kidney: 12.0 x 4.7 x 5.1 cm Left Kidney: 11.2 x 4.7 x 6.2 cm Pancreas: limited views appear wnl Liver: hypoechoic area noted within left lobe of unknown etiology, otherwise, wnl Gallbladder: wnl Evidence for sonographic Durán's sign: no CBD: wnl Spleen: wnl - medial to spleen was anechoic well circumscribed area = 4.7 x 4.4 x 4.6cm this is calc ified and the CT of 01/15/2024. Right Kidney: 2 anechoic cysts noted, largest inferior = 2.4 x 1.8 x 2.3cm Left Kidney: wnl, No hydronephrosis, calculi or masses seen Upper IVC: wnl Abd Aorta: wnl IMPRESSION: 1. Large splenic cyst. Consider echinococcal cyst among other etiologies. 2. Right renal cysts [facility], , 08/22/2024 7:58 AM
== END | disposition home or self-care (01) ==
LOC: RADUSWWP 06:54
PROVIDERS: ATTEND Internal Medicine Hospice and Palliative Medicine
DX: N28.1 Cyst of kidney, acquired (principal); D73.4 Cyst of spleen
CPT/HCPCS: 76700

== ENCOUNTER → 2024-08-23 | Outpatient (CLI) | payer OTHER ==
[2024-08-23 13:34] VITALS: BP 118/74; PULSE 76; RESP 16; TEMP 98.3
--- NOTE | 2024-08-23 13:58 | P.PROGSL ---
Subjective DATE: 08/23/2024 FOLLOW UP VISIT. Patient with history of obstructive sleep apnea hypopnea syndrome return to sleep center for follow-up visit. Patient was on treatment with CPAP, but quit treatment about 3 years ago. Presently patient continued to snore, wakes up from sleep, continue to feel significant sleepiness during the day. [place] sleepiness scale is significantly increased to 14. MEDICATIONS: Have been reviewed, please see below During physical exam: GENERAL: A pleasant patient without any distress. VITAL SIGNS: Please see below, weight 173 pounds. HEENT: PERRLA, EOMI. NECK: Supple. No JVD. LUNGS: Clear to percussion and to auscultation. Good air exchange. No wheezing or rhonchi. HEART: S1, S2 regular. ABDOMEN: Soft and nontender. EXTREMITIES: No clubbing or cyanosis. ORDER CHECKER PACKER PROCESSER: Awake, alert, and oriented x3. No focal deficit. Impressions: 1. Obstructive sleep apnea hypopnea syndrome 2. Hypertension. 3. Diabetes mellitus. 4. BPH. 5. Hyperlipidemia. 6. History of depression. 7. Acid reflux. 8. Allergy. Plan: 1. Polysomnogram for evaluation of patient breathing during the sleep at the present time. 2. Sleep hygiene with regular time in bed for at least 8 hours. 3. Following plan after reading sleep study. 4. Precautions related to driving. No driving if feel any sleepiness. Patient is aware about civil and criminal liability for unsafe driving, promised to follow recommendations. Thank you very much for allowing me to participate in the management of your patient. Marco A Pulido MD, PhD, FAASM. Diplomat of [place], Sleep Medicine Board by [employer] [facility] Objective - Vital Signs Vital Signs: Vital Signs Temp 98.3 F 08/23/24 13:34 Pulse 76 08/23/24 13:34 Resp 16 08/23/24 13:34 BP 118/74 08/23/24 13:34 Pulse Ox 97 08/23/24 13:34 FiO2 Intake & Output 08/22/24 08/23/24 08/23/24 18:59 06:59 18:59 Weight 78.471 kg Home Medications: Home Medications Medication Instructions Recorded Confirmed Type ARIPiprazole [Abilify] 15 mg PO DAILY 30 Days #30 tab 07/13/24 08/23/24 Rx Albuterol Inhaler [Ventolin Hfa 2 puff INHALATION RT-Q6H PRN 30 07/13/24 08/23/24 Rx Inhaler] Days #1 each Aspirin EC [Ecotrin Low Dose] 81 mg PO DAILY 30 Days #30 tab 07/13/24 08/23/24 Rx Atorvastatin [Lipitor] 10 mg PO HS 30 Days #30 tab 07/13/24 08/23/24 Rx Empagliflozin [Jardiance] 25 mg PO DAILY 30 Days #30 tab 07/13/24 Rx Nicotine 21Mg/24Hr Patch [Habitrol] 1 patch TRANSDERM DAILY 14 Days 07/13/24 08/23/24 Rx #14 patch Pantoprazole [Protonix] 40 mg PO DAILY 30 Days #30 tab 07/13/24 08/23/24 Rx ARIPiprazole [Abilify] 15 mg PO DAILY 30 Days #30 tab 08/15/24 08/23/24 Rx Budesonide/Formoterol Fumarate 2 puff INHALATION RT-BID 30 Days 08/15/24 08/23/24 Rx [Symbicort 80-4.5 Mcg Inhaler] #1 each INSULIN ASPART (NovoLOG) [NovoLOG 0 unit SQ ACHS each 08/15/24 08/23/24 Rx (formulary)] Sertraline [Zoloft] 50 mg PO DAILY 30 Days #30 tab 08/15/24 08/23/24 Rx Sertraline [Zoloft] 100 mg PO DAILY 30 Days #30 tab 08/15/24 08/23/24 Rx traZODone HCL [Desyrel] 100 mg PO HS 30 Days #30 tab 08/15/24 08/23/24 Rx Insulin Lispro [humaLOG Kwikpen] 100 units SQ DAILY 08/23/24 08/23/24 History Ketorolac [Toradol] 15 mg INJ DAILY 08/23/24 08/23/24 History
== END ==
LOC: 3 N SLEEP 13:13
PROVIDERS: ATTEND Internal Medicine
DX: G47.33 Obstructive sleep apnea (adult) (pediatric) (principal); E11.9 Type 2 diabetes mellitus without complications; I10 Essential (primary) hypertension; N40.0 Benign prostatic hyperplasia without lower urinary tract symptoms; E78.5 Hyperlipidemia, unspecified; K21.9 Gastro-esophageal reflux disease without esophagitis; Z86.59 Personal history of other mental and behavioral disorders; F17.210 Nicotine dependence, cigarettes, uncomplicated; Z91.048 Other nonmedicinal substance allergy status; Z88.0 Allergy status to penicillin; Z91.040 Latex allergy status; Z88.8 Allergy status to other drugs, medicaments and biological substances; Z88.1 Allergy status to other antibiotic agents; Z88.2 Allergy status to sulfonamides
CPT/HCPCS: 99212

== ENCOUNTER 2024-09-06 06:46 | Emergency (ER) | payer OTHER ==
[2024-09-06 06:54] VITALS: PULSE 65; RESP 16; TEMP 98.3
--- NOTE | 2024-09-06 07:15 | ED ---
Headache HPI - General Chief Complaint: Headache Stated Complaint: Headache Time Seen by Provider: 09/06/24 06:48 Source: patient, RN notes reviewed Mode of arrival: ambulatory Limitations: no limitations - History of Present Illness Initial Comments: 54-year-old male presents emergency department with multiple complaints. Patient is well-known to the emergency department. Patient states he has a headache, painful urination. Symptoms started last few days no reports of fever no localized abdominal pain no chest pain no shortness of breath no other complaints. - Related Data Home Medications Medication Instructions Recorded Confirmed Insulin Lispro [humaLOG Kwikpen] 100 units SQ DAILY 08/23/24 08/23/24 Ketorolac [Toradol] 15 mg INJ DAILY 08/23/24 08/23/24 Previous Rx's Medication Instructions Recorded ARIPiprazole [Abilify] 15 mg PO DAILY 30 Days #30 tab 07/13/24 Albuterol Inhaler [Ventolin Hfa 2 puff INHALATION RT-Q6H PRN 30 07/13/24 Inhaler] Days #1 each Aspirin EC [Ecotrin Low Dose] 81 mg PO DAILY 30 Days #30 tab 07/13/24 Atorvastatin [Lipitor] 10 mg PO HS 30 Days #30 tab 07/13/24 Empagliflozin [Jardiance] 25 mg PO DAILY 30 Days #30 tab 07/13/24 Nicotine 21Mg/24Hr Patch [Habitrol] 1 patch TRANSDERM DAILY 14 Days 07/13/24 #14 patch Pantoprazole [Protonix] 40 mg PO DAILY 30 Days #30 tab 07/13/24 ARIPiprazole [Abilify] 15 mg PO DAILY 30 Days #30 tab 08/15/24 Budesonide/Formoterol Fumarate 2 puff INHALATION RT-BID 30 Days 08/15/24 [Symbicort 80-4.5 Mcg Inhaler] #1 each INSULIN ASPART (NovoLOG) [NovoLOG 0 unit SQ ACHS each 08/15/24 (formulary)] Sertraline [Zoloft] 50 mg PO DAILY 30 Days #30 tab 08/15/24 Sertraline [Zoloft] 100 mg PO DAILY 30 Days #30 tab 08/15/24 traZODone HCL [Desyrel] 100 mg PO HS 30 Days #30 tab 08/15/24 Allergies Allergy/AdvReac Type Severity Reaction Status Date / Time dicyclomine HCl [From Bentyl] Allergy Unknown Dyspnea Verified 09/06/24 06:51 latex Allergy Unknown Rash/Hives Verified 09/06/24 06:51 Benzoate Analogues Allergy Unknown Verified 09/06/24 06:51 nitrofurantoin Allergy Nausea Verified 09/06/24 06:51 [From Macrobid] Penicillins Allergy "[place] Verified 09/06/24 06:51 funny" adhesive AdvReac Unknown Itching Verified 09/06/24 06:51 ciprofloxacin AdvReac Unknown Nausea Verified 09/06/24 06:51 Macrolide Antibiotics AdvReac Unknown Nausea Verified 09/06/24 06:51 sulfamethoxazole AdvReac Unknown Unknown Verified 09/06/24 06:51 [From Bactrim] trimethoprim [From Bactrim] AdvReac Unknown Unknown Verified 09/06/24 06:51 diphenhydramine AdvReac Confusion Verified 09/06/24 06:51 [From Benadryl] Review of Systems ROS Statement: Those systems with pertinent positive or pertinent negative responses have been documented in the HPI. ROS Other: All systems not noted in ROS Statement are negative. Past Medical History Past Medical History: Asthma, Chest Pain / Angina, COPD, CVA/TIA, Diabetes Mellitus, GERD/Reflux, Hearing Disorder / Deafness, Hyperlipidemia, Hypertension, Liver Disease, Osteoarthritis (OA), Pneumonia, Seizure Disorder, Sleep Apnea/CPAP/BIPAP Additional Past Medical History / Comment(s): states CVA at 35 yrs old, no weakness @ this time. states seizure at 35 yrs old., DDD- back & neck pain., carpal tunnel syndrome. Has [employer] public guardian. History of Any Multi-Drug Resistant Organisms: Other MDRO Past Surgical History: Heart Catheterization, Orthopedic Surgery Additional Past Surgical History / Comment(s): Cysts removed, left thumb surgery, colonoscopy 08/24/2019. Skin tags removed from both eyes. Past Anesthesia/Blood Transfusion Reactions: Motion Sickness, Postoperative Nausea & Vomiting (PONV) Past Psychological History: Anxiety, Bipolar, Depression Smoking Status: Current every day smoker Past Alcohol Use History: Abuse Past Drug Use History: None Reported - Past Family History Brother(s) Family Medical History: Diabetes Mellitus Additional Family Medical History / Comment(s): Patient has 2 brothers. One from complications from diabetes. The second is alive with diabetes. Sister(s) Family Medical History: Cancer Additional Family Medical History / Comment(s): Patient has one sister with breast cancer. Patient does not have any children. Father Family Medical History: Cancer Additional Family Medical History / Comment(s): Father in his 40s or 50s from colon cancer. Mother Family Medical History: Cancer Additional Family Medical History / Comment(s): Mother at age 68 from lung cancer. General Exam Limitations: no limitations General appearance: alert, in no apparent distress Head exam: Present: atraumatic, normocephalic, normal inspection Eye exam: Present: normal appearance, PERRL, EOMI. Absent: scleral icterus, conjunctival injection, periorbital swelling ENT exam: Present: normal exam, normal oropharynx, mucous membranes moist Neck exam: Present: normal inspection, full ROM. Absent: tenderness, meningismus, lymphadenopathy Respiratory exam: Present: normal lung sounds bilaterally. Absent: respiratory distress, wheezes, rales, rhonchi, stridor Cardiovascular Exam: Present: regular rate, normal rhythm, normal heart sounds. Absent: systolic murmur, diastolic murmur, rubs, gallop, clicks GI/Abdominal exam: Present: soft, normal bowel sounds. Absent: distended, tenderness, guarding, rebound, rigid Neurological exam: Present: alert, oriented X3, CN II-XII intact, reflexes normal. Absent: motor sensory deficit Skin exam: Present: warm, dry, intact, normal color. Absent: rash Course Vital Signs 09/06/24 09/06/24 06:52 07:50 Temperature 98.3 F 98.3 F Pulse Rate 65 65 Respiratory 16 16 Rate Blood Pressure 156/94 142/84 O2 Sat by Pulse 100 100 Oximetry Medical Decision Making - Medical Decision Making Was pt. sent in by a medical professional or institution (, PA, AFTER SCHOOL PROGRAM TEACHER, urgent care, hospital, or snf...) When possible be specific @ -No Did you speak to anyone other than the patient for history (EMS, parent, family, police, friend...)? What history was obtained from this source @ -No Did you review nursing and triage notes (agree or disagree)? Why? @ -I reviewed and agree with nursing and triage notes Were old charts reviewed (outside hosp., previous admission, EMS record, old EKG, old radiological studies, urgent care reports/EKG's, snf records)? Report findings @ -No old charts were reviewed Differential Diagnosis (chest pain, altered mental status, abdominal pain women, abdominal pain men, vaginal bleeding, weakness, fever, dyspnea, syncope, headache, dizziness, GI bleed, back pain, seizure, CVA, palpatations, mental health, musculoskeletal)? @ -Differential Abdominal Pain Men: Appendicitis, cholecystitis, diverticulosis, ischemic bowel, pancreatitis, hepatitis, UTI, gastroenteritis, AAA, incarcerated hernia, bowel obstruction, constipation, inflammatory bowel, hepatitis, peptic ulcer disease, splenic infarction, perforated viscus, testicular torsion, this is not meant to be an all-inclusive list EKG interpreted by me (3pts min.). @ -None X-rays interpreted by me (1pt min.). @ -None done CT interpreted by me (1pt min.). @ -None done U/S interpreted by me (1pt. min.). @ -None done What testing was considered but not performed or refused? (CT, X-rays, U/S, labs)? Why? @ -None What meds were considered but not given or refused? Why? @ -None Did you discuss the management of the patient with other professionals (professionals i.e. , PA, AFTER SCHOOL PROGRAM TEACHER, lab, RT, psych nurse, psych social worker, head filter press tender, teacher, chief creative officer, case packer and sealer)? Give summary @ -No Was smoking cessation discussed for >3mins.? @ -No Was critical care preformed (if so, how long)? @ -No Were there social determinants of health that impacted care today? How? (Homelessness, low income, unemployed, alcoholism, drug addiction, transportation, low edu. Level, literacy, decrease access to med. care, senior living, rehab)? @ -No Was there de-escalation of care discussed even if they declined (Discuss DNR or withdrawal of care, Hospice)? DNR status @ -No What co-morbidities impacted this encounter? (DM, HTN, Smoking, COPD, CAD, Cancer, CVA, ARF, Chemo, Hep., AIDS, mental health diagnosis, sleep apnea, morbid obesity)? @ -None Was patient admitted / discharged? Hospital course, mention meds given and ro rose mary, prescriptions, significant lab abnormalities, going to OR and other pertinent info. @ -Urinalysis showed 4+ glucose, blood sugar was 160. Patient will be discharged in stable condition return parens discussed. Patient was given Toradol for acute headache patient is neurologically intact Undiagnosed new problem with uncertain prognosis? @ -No Drug Therapy requiring intensive monitoring for toxicity (Heparin, Nitro, Insulin, Cardizem)? @ -No Were any procedures done? @ -No Diagnosis/symptom? @Headache, dysuria Acute, or Chronic, or Acute on Chronic? @ -Acute Uncomplicated (without systemic symptoms) or Complicated (systemic symptoms)? @ -Uncomplicated Side effects of treatment? @ -No Exacerbation, Progression, or Severe Exacerbation? @ -No Poses a threat to life or bodily function? How? (Chest pain, [place], [place], pneumonia, PE, COPD, DKA, ARF, appy, cholecystitis, CVA, Diverticulitis, Homicidal, Suicidal, threat to staff... and all critical care pts) @ -No - Lab Data Lab Results 09/06/24 Range/Units 07:17 Urine Color Colorless Urine Appearance Clear (Clear) Urine pH 5.5 (5.0-8.0) Ur Specific [place] 1.015 (1.001-1.035) Urine Protein Negative (Negative) Urine Glucose (UA) 4+ H (Negative) Urine Ketones Trace H (Negative) Urine Blood Negative (Negative) Urine Nitrite Negative (Negative) Urine Bilirubin Negative (Negative) Urine Urobilinogen <2.0 (<2.0) mg/dL Ur Leukocyte Esterase Negative (Negative) Disposition Clinical Impression: Headache, Dysuria Disposition: HOME SELF-CARE Condition: Stable Instructions (If sedation given, give patient instructions): Acute Headache (ED) Additional Instructions: Please return to the Emergency Department if symptoms worsen or any other concerns. Is patient prescribed a controlled substance at d/c from ED?: No Referrals: None,Stated [Primary Care Provider] - 1-2 days Time of Disposition: 07:28
[2024-09-06] MEDS: KETOROLAC 15 MG/ML 1 ML VIAL IM STA (07:20)
[2024-09-06 07:24] LABS: Appearance,Urine Clear (Clear); Bilirubin,Urine Negative (Negative); Blood,Urine Negative (Negative); Color,Urine Colorless; Glucose,Urine (UA) 4+ (Negative); Ketones,Urine Trace (Negative); Leukocyte Esterase,Urine Negative (Negative); Nitrite,Urine Negative (Negative); PH, Urine 5.5 (5.0-8.0); Protein,Urine Negative (Negative); Specific Gravity,Urine 1.015 (1.001-1.035); Urobilinogen,Urine <2.0 mg/dL (<2.0)
[2024-09-06 07:55] VITALS: BP 142/84
== END 2024-09-06 07:58 | disposition home or self-care (01) ==
LOC: EC 06:46
DX: R51.9 Headache, unspecified (principal); R30.0 Dysuria; F17.200 Nicotine dependence, unspecified, uncomplicated
CPT/HCPCS: 81003; 99284; 96372; J1885

== ENCOUNTER 2024-09-15 22:34 | Inpatient (IN) | payer OTHER, MEDICAID ==
--- NOTE | 2024-09-15 22:58 | ED ---
Psych HPI - General Chief Complaint: Psychiatric Symptoms Stated Complaint: Mental Health Time Seen by Provider: 09/15/24 22:43 Source: patient, EMS, RN notes reviewed Mode of arrival: EMS Limitations: no limitations - History of Present Illness Initial Comments: This is a 54-year-old male who presents to the emergency department for psychiatric evaluation. Patient states that he does not like where he is living and is not doing well. Reports suicidal ideations for the last 1 to 2 days. Denies any homicidal ideations. When asked about a plan he states that he is just going to stop eating and drinking and lay in his bed and . Patient is well-known to this emergency department for various complaints and has made similar statements multiple times in the past. MD Complaint: suicidal ideation, feels depressed - Related Data Home Medications Medication Instructions Recorded Confirmed Insulin Lispro [humaLOG Kwikpen] 100 units SQ DAILY 08/23/24 08/23/24 Ketorolac [Toradol] 15 mg INJ DAILY 08/23/24 08/23/24 Previous Rx's Medication Instructions Recorded ARIPiprazole [Abilify] 15 mg PO DAILY 30 Days #30 tab 07/13/24 Albuterol Inhaler [Ventolin Hfa 2 puff INHALATION RT-Q6H PRN 30 07/13/24 Inhaler] Days #1 each Aspirin EC [Ecotrin Low Dose] 81 mg PO DAILY 30 Days #30 tab 07/13/24 Atorvastatin [Lipitor] 10 mg PO HS 30 Days #30 tab 07/13/24 Empagliflozin [Jardiance] 25 mg PO DAILY 30 Days #30 tab 07/13/24 Nicotine 21Mg/24Hr Patch [Habitrol] 1 patch TRANSDERM DAILY 14 Days 07/13/24 #14 patch Pantoprazole [Protonix] 40 mg PO DAILY 30 Days #30 tab 07/13/24 ARIPiprazole [Abilify] 15 mg PO DAILY 30 Days #30 tab 08/15/24 Budesonide/Formoterol Fumarate 2 puff INHALATION RT-BID 30 Days 08/15/24 [Symbicort 80-4.5 Mcg Inhaler] #1 each INSULIN ASPART (NovoLOG) [NovoLOG 0 unit SQ ACHS each 08/15/24 (formulary)] Sertraline [Zoloft] 50 mg PO DAILY 30 Days #30 tab 02/18/25 Sertraline [Zoloft] 100 mg PO DAILY 30 Days #30 tab 08/15/24 traZODone HCL [Desyrel] 100 mg PO HS 30 Days #30 tab 08/15/24 Allergies Allergy/AdvReac Type Severity Reaction Status Date / Time dicyclomine HCl [From Bentyl] Allergy Unknown Dyspnea Verified 09/06/24 06:51 latex Allergy Unknown Rash/Hives Verified 09/06/24 06:51 Benzoate Analogues Allergy Unknown Verified 09/06/24 06:51 nitrofurantoin Allergy Nausea Verified 09/06/24 06:51 [From Macrobid] Penicillins Allergy "[place] Verified 09/06/24 06:51 funny" adhesive AdvReac Unknown Itching Verified 09/06/24 06:51 ciprofloxacin AdvReac Unknown Nausea Verified 09/06/24 06:51 Macrolide Antibiotics AdvReac Unknown Nausea Verified 09/06/24 06:51 sulfamethoxazole AdvReac Unknown Unknown Verified 09/06/24 06:51 [From Bactrim] trimethoprim [From Bactrim] AdvReac Unknown Unknown Verified 09/06/24 06:51 diphenhydramine AdvReac Confusion Verified 09/06/24 06:51 [From Benadryl] Review of Systems ROS Statement: Those systems with pertinent positive or pertinent negative responses have been documented in the HPI. ROS Other: All systems not noted in ROS Statement are negative. Past Medical History Past Medical History: Asthma, Chest Pain / Angina, COPD, CVA/TIA, Diabetes Mellitus, GERD/Reflux, Hearing Disorder / Deafness, Hyperlipidemia, Hypertension, Liver Disease, Osteoarthritis (OA), Pneumonia, Seizure Disorder, Sleep Apnea/CPAP/BIPAP Additional Past Medical History / Comment(s): states CVA at 35 yrs old, no weakness @ this time. states seizure at 35 yrs old., DDD- back & neck pain., carpal tunnel syndrome. Has [employer] public guardian. History of Any Multi-Drug Resistant Organisms: Other MDRO Past Surgical History: Heart Catheterization, Orthopedic Surgery Additional Past Surgical History / Comment(s): Cysts removed, left thumb surgery, colonoscopy 08/24/2019. Skin tags removed from both eyes. Past Anesthesia/Blood Transfusion Reactions: Motion Sickness, Postoperative Nausea & Vomiting (PONV) Past Psychological History: Anxiety, Bipolar, Depression Smoking Status: Current every day smoker Past Alcohol Use History: Abuse Past Drug Use History: None Reported - Past Family History Brother(s) Family Medical History: Diabetes Mellitus Additional Family Medical History / Comment(s): Patient has 2 brothers. One from complications from diabetes. The second is alive with diabetes. Sister(s) Family Medical History: Cancer Additional Family Medical History / Comment(s): Patient has one sister with breast cancer. Patient does not have any children. Father Family Medical History: Cancer Additional Family Medical History / Comment(s): Father in his 40s or 50s from colon cancer. Mother Family Medical History: Cancer Additional Family Medical History / Comment(s): Mother at age 68 from lung cancer. General Exam Limitations: no limitations General appearance: alert, in no apparent distress Head exam: Present: atraumatic, normocephalic, normal inspection Respiratory exam: Present: normal lung sounds bilaterally. Absent: respiratory distress, wheezes, rales, rhonchi, stridor Cardiovascular Exam: Present: regular rate, normal rhythm Neurological exam: Present: alert, oriented X3, CN II-XII intact Psychiatric exam: Present: depressed, flat affect, suicidal ideation. Absent: homicidal ideation Skin exam: Present: warm, dry, intact, normal color. Absent: rash Course Vital Signs 09/15/24 09/16/24 22:35 05:30 Temperature 98.9 F 98.0 F Pulse Rate 62 81 Respiratory 18 18 Rate Blood Pressure 132/84 148/85 O2 Sat by Pulse 98 99 Oximetry Medical Decision Making - Medical Decision Making This is a 54-year-old male who presents to the emergency department for psychiatric evaluation. Was pt. sent in by a medical professional or institution? @ -No Did you speak to anyone other than the patient for history? @ -No Did you review nursing and triage notes? @ -Yes, and I agree, it is accurate with regards to the patient's symptoms. Were old charts reviewed? @ -No Differential Diagnosis? @ -Differential Mental Health Depression, anxiety, bipolar, psychosis, schizophrenia, borderline personality, situational depression, adjustment disorder, behavioral disorder, brain tumor, malingering, substance abuse, encephalopathy, medication reaction, dementia, hypothyroidism, degenerative neurologic disorder, lupus.... This is not meant to be all-inclusive list EKG interpreted by me (3pts min.)? @ -Not obtained X-rays interpreted by me (1pt min.)? @ -Not obtained CT interpreted by me (1pt min.)? @ -Not obtained U/S interpreted by me (1pt. min.)? @ -Not obtained What testing was considered but not performed? (CT, X-rays, U/S, labs)? Why? @ -None What meds were considered but not given? Why? @ -None Did you discuss the management of the patient with other professionals? @ -No Did you reconcile home meds? @ -No Was smoking cessation discussed for >3mins.? @ -No Was critical care preformed (if so, how long)? @ -No Were there social determinants of health that impacted care today? How? (Homelessness, low income, unemployed, alcoholism, drug addiction, transportation, low edu. Level, literacy, decrease access to med. care, [facility], r ehab)? @ -No Was there de-escalation of care discussed even if they declined? (Discuss DNR or withdrawal of care, Hospice)? @ -No What co-morbidities impacted this encounter? (DM, HTN, Smoking, COPD, CAD, Cancer, CVA, Hep., AIDS, mental health diagnosis, sleep apnea, morbid obesity)? @ -Schizoaffective disorder Was patient admitted / discharged? @ -Patient's BAT was 0.0 and he was medically cleared for EPS evaluation. Urinalysis negative for signs of infection. UDS negative. Case signed out to ED attending, Dr. Smith, at shift completion pending EPS evaluation and disposition. Undiagnosed new problem with uncertain prognosis? @ -None Drug Therapy requiring intensive monitoring for toxicity (Heparin, Nitro, Insulin, Cardizem)? @ -None Were any procedures done? @ -None - Lab Data Lab Results 09/15/24 09/15/24 09/16/24 Range/Units 23:28 23:54 03:16 POC Glucose (mg/dL) 133 H (70-110) mg/dL POC Glu Acid Conditioning Worker ID Storm Cole Urine Color Colorless Urine Appearance Clear (Clear) Urine pH 6.0 (5.0-8.0) Ur Specific [place] 1.035 (1.001-1.035) Urine Protein Negative (Negative) Urine Glucose (UA) 4+ H (Negative) Urine Ketones Negative (Negative) Urine Blood Negative (Negative) Urine Nitrite Negative (Negative) Urine Bilirubin Negative (Negative) Urine Urobilinogen <2.0 (<2.0) mg/dL Ur Leukocyte Esterase Negative (Negative) Urine Opiates Screen Not Detected (NotDetected) Ur Oxycodone Screen Not Detected (NotDetected) Urine Methadone Screen Not Detected (NotDetected) Ur Barbiturates Screen Not Detected (NotDetected) U Tricyclic Antidepress Not Detected (NotDetected) Ur Phencyclidine Scrn Not Detected (NotDetected) Ur Amphetamines Screen Not Detected (NotDetected) U Methamphetamines Scrn Not Detected (NotDetected) U Benzodiazepines Scrn Not Detected (NotDetected) Urine Cocaine Screen Not Detected (NotDetected) U Marijuana (THC) Screen Not Detected (NotDetected) SARS-CoV-2 (PCR) Not Detected (Not Detectd) Disposition Clinical Impression: Suicidal ideations Disposition: TRANSFER TO PSYCH HOSP/UNIT
[2024-09-15 23:37] LABS: Appearance,Urine Clear (Clear); Bilirubin,Urine Negative (Negative); Blood,Urine Negative (Negative); Color,Urine Colorless; Glucose,Urine (UA) 4+ (Negative); Ketones,Urine Negative (Negative); Leukocyte Esterase,Urine Negative (Negative); Nitrite,Urine Negative (Negative); Protein,Urine Negative (Negative); Specific Gravity,Urine 1.035 (1.001-1.035); Urobilinogen,Urine <2.0 mg/dL (<2.0)
[2024-09-15] MEDS: ACETAMINOPHEN TAB 500 MG TAB PO STA (23:51)
[2024-09-15 23:52] LABS: Amphetamine Screen,Urine Not Detected (NotDetected); Barbiturate Screen,Urine Not Detected (NotDetected); Benzodiazepines Screen,Urine Not Detected (NotDetected); Cocaine Screen,Urine Not Detected (NotDetected); Methadone Screen, Urine Not Detected (NotDetected); Opiate Screen,Urine Not Detected (NotDetected); Oxycodone Screen, Urine Not Detected (NotDetected); Phencyclidine Screen,Urine Not Detected (NotDetected); Tricyclic Antidepressant,Urine Not Detected (NotDetected); Urn Cannabinoid Scrn Not Detected (NotDetected)
[2024-09-15] MEDS: KETOROLAC 15 MG/ML 1 ML VIAL IM STA (23:52)
[2024-09-15 23:55] LABS: Glucose,Whole Blood 133 mg/dL (70-110)
[2024-09-16] MEDS ORDERED: HALOPERIDOL LACTATE 5 MG/ML 1 ML VIAL IM PRN (04:59)
[2024-09-16 07:55] LABS: Glucose,Whole Blood 131 mg/dL (70-110)
[2024-09-16] MEDS: NICOTINE 14MG/24HR PATCH TRANSDERM SCH (08:41)
[2024-09-16] MEDS: ASPIRIN 81 MG PO SCH (08:42)
[2024-09-16] MEDS: ARIPiprazole 15 MG TAB PO SCH (08:42)
[2024-09-16] MEDS: DAPAGLIFLOZIN PROPANEDIOL 10 MG TABLET PO SCH (08:42)
[2024-09-16] MEDS: SERTRALINE 100 MG TAB PO SCH (08:42)
[2024-09-16] MEDS: PANTOPRAZOLE 40 MG TABLET PO SCH (08:42)
--- NOTE | 2024-09-16 12:03 | P.HP ---
Psychiatric H&P - . H&P Date: 09/16/24 History & Physical: Allergies Allergy/AdvReac Type Severity Reaction Status Date / Time dicyclomine HCl [From Bentyl] Allergy Unknown Dyspnea Verified 09/06/24 06:51 latex Allergy Unknown Rash/Hives Verified 09/06/24 06:51 Benzoate Analogues Allergy Unknown Verified 09/06/24 06:51 nitrofurantoin Allergy Nausea Verified 09/06/24 06:51 [From Macrobid] Penicillins Allergy "[place] Verified 09/06/24 06:51 funny" adhesive AdvReac Unknown Itching Verified 09/06/24 06:51 ciprofloxacin AdvReac Unknown Nausea Verified 09/06/24 06:51 Macrolide Antibiotics AdvReac Unknown Nausea Verified 09/06/24 06:51 sulfamethoxazole AdvReac Unknown Unknown Verified 09/06/24 06:51 [From Bactrim] trimethoprim [From Bactrim] AdvReac Unknown Unknown Verified 09/06/24 06:51 diphenhydramine AdvReac Confusion Verified 09/06/24 06:51 [From Benadryl] Vital Signs Temp 98.4 F 09/16/24 08:45 Pulse 63 09/16/24 08:45 Resp 18 09/16/24 06:27 BP 116/66 09/16/24 08:45 Pulse Ox 98 09/16/24 06:27 FiO2 Intake & Output 09/15/24 09/16/24 09/16/24 18:59 06:59 18:59 Weight 76.9 kg Laboratory Last Values POC Glucose (mg/dL) 131 mg/dL (70-110) H 09/16/24 07:54 POC Glu Adaptive Physical Education Teacher ID Qiana Alarcon 09/16/24 07:54 Urine Color Colorless 09/15/24 23:28 Urine Appearance Clear (Clear) 09/15/24 23:28 Urine pH 6.0 (5.0-8.0) 09/15/24 23:28 Ur Specific [place] 1.035 (1.001-1.035) 09/15/24 23:28 Urine Protein Negative (Negative) 09/15/24 23:28 Urine Glucose (UA) 4+ (Negative) H 09/15/24 23:28 Urine Ketones Negative (Negative) 09/15/24 23:28 Urine Blood Negative (Negative) 09/15/24 23:28 Urine Nitrite Negative (Negative) 09/15/24 23:28 Urine Bilirubin Negative (Negative) 09/15/24 23: Urine Urobilinogen <2.0 mg/dL (<2.0) 09/15/24 23:28 Ur Leukocyte Esterase Negative (Negative) 09/15/24 23:28 Urine Opiates Screen Not Detected (NotDetected) 09/15/24 23:28 Ur Oxycodone Screen Not Detected (NotDetected) 09/15/24 23:28 Urine Methadone Screen Not Detected (NotDetected) 09/15/24 23:28 Ur Barbiturates Screen Not Detected (NotDetected) 09/15/24 23:28 U Tricyclic Antidepress Not Detected (NotDetected) 09/15/24 23:28 Ur Phencyclidine Scrn Not Detected (NotDetected) 09/15/24 23:28 Ur Amphetamines Screen Not Detected (NotDetected) 09/15/24 23:28 U Methamphetamines Scrn Not Detected (NotDetected) 09/15/24 23:28 U Benzodiazepines Scrn Not Detected (NotDetected) 09/15/24 23:28 Urine Cocaine Screen Not Detected (NotDetected) 09/15/24 23:28 U Marijuana (THC) Screen Not Detected (NotDetected) 09/15/24 23:28 SARS-CoV-2 (PCR) Not Detected (Not Detectd) 09/16/24 03:16 09/16/24 09:14 IDENTIFYING DATA: Patient is a single, unemployed, 54-year-old male with a guardian who is presenting with suicidal ideation HPI: Patient presents to the ED reporting suicidal ideation and feeling unsafe at jail. Patient is calm and cooperative on assessment. He states that he does not like his jail because he heard someone talking about shooting guns. He denies his safety being threatened or any form of abuse occurring for him. He just states that he does not like being in that environment. He is hoping to find alternate placement including being considered for a halfway. He says that stress of being in the jail over the past 1 year is contributed to worsening in his mental health. He endorses having suicidal ideation with a plan to no longer take his medical or psychiatric medications. He also self- reports hearing auditory hallucinations that are negative in nature that occur primarily at nighttime, with the last time being last night. He reports these have not changed or worsened but that they have been ongoing for a long time. Patient is able to voice this concern in a linear thought process with no disorganization. He also reports visual hallucinations of seeing "black dots "when he is trying to sleep. He says he would like something for his anxiety and is agreeable with Zoloft being changed to Paxil. He reports trouble sleeping at night when he is not taking trazodone. He reports low energy and anhedonia. He currently endorses passive suicidal ideation. He denies active suicidal ideation, intent, or plan. He denies homicidal ideation. He denies current auditory and visual hallucinations and paranoia. He denies symptoms consistent with [place]. He denies access to firearms or weapons. PSYCH HX: Patient has a history of schizoaffective disorder, depressed type, alcohol use disorder, in remission. He is currently prescribed abilify 15 mg, zoloft 150 mg, and trazodone 100 mg. He reports >50 inpatient hospitalizations, most recent here Jul 2024. He follows with [facility]. He reports one prior suicide attempt via OD 3-4 years ago. PMH: Past Medical History: Asthma, Chest Pain / Angina, COPD, CVA/TIA, Diabetes Mellitus, GERD/Reflux, Hearing Disorder / Deafness, Hyperlipidemia, Hyp ertension, Liver Disease, Osteoarthritis (OA), Pneumonia, Seizure Disorder, Sleep Apnea/CPAP/BIPAP Additional Past Medical History / Comment(s): states CVA at 35 yrs old, no w eakness @ this time. states seizure at 35 yrs old., DDD- back & neck pain., carpal tunnel syndrome. Has [facility] public guardian. History of Any Multi-Drug Resistant Organisms: Other MDRO Past Surgical History: Heart Catheterization, Orthopedic Surgery Additional Past Surgical History / Comment(s): Cysts removed, left thumb karen anitha, colonoscopy 08/24/2019. Skin tags removed from both eyes. Past Anesthesia/Blood Transfusion Reactions: Motion Sickness, Postoperative Nausea & Vomiting (PONV) Past Psychological History: Anxiety, Bipolar, Depression Smoking Status: Current every day smoker Past Alcohol Use History: Abuse Past Drug Use History: None Reported SUBSTANCE HX: He has a history of alcohol use disorder however now drinks occasionally. He smokes 2-3 cigs daily, denying any cannabis or other illicit drugs. SOCIAL/LEGAL HX: Patient is currently staying at [facility] home, living with one roommate. He has a public guardian. He does not have any children, never and completed high school up to 10th grade. He is on SSD. FAM PSYCH HX: Denies MENTAL STATUS EXAM: General Appearance: Patient appears to be stated age is alert, directable, and attempts to cooperate. Patient appears to have fair hygiene and grooming. Behavior: Patient is seated without any agitated behavior. Speech: Patient's speech is fluent and nonpressured. Mood/Affect: Patient reports their mood is depressed, affect is congruent and constricted. Suicidality/Homicidality: Patient denies having any homicidal ideation intent or plan. He reports suicidal ideations with a plan to stop taking his meds Perceptions: Patient denies any visual hallucinations however he reports chronic auditory hallucinations Though content/process: There is no evidence of any delusional thought content and thought process is linear. Memory and concentration: AOX3, grossly intact for the purposes of this session. Can spell "WORLD" backwards Judgment and insight: poor STRENGTHS/WEAKNESSES: strength is that patient is resilient and has a public guardian. Weakness is that patient has poor judgment/insight and is impulsive INTELLECT: below average IMPRESSIONS: Schizoaffective disorder, depressed type Generalized anxiety disorder Nicotine dependence Alcohol use disorder, in sustained remission PLAN: -Patient is admitted under voluntary status to MHU for stabilization of psychiatric symptoms and safety. Patient has signed adult voluntary form and medication consent and is placed in patient's chart. -Medications : Decrease Zoloft to 100 mg daily for depression/anxiety, start Paxil 10 mg qHS for depression and anxiety. Resume Abilify 15 mg daily for psychosis, trazodone 100 mg at bedtime for insomnia. -Haldol PRN for agitation/aggression -Patient was counselled on substance abuse and desired to cut back on use -Patient was informed of the risks, benefits and side effects of the medication and patient verbally consented to taking the medications. Patient signed med consent form and was placed in chart. -Internal Medicine consult to perform medical evaluation and physical. -NRT - nicotine patch -SW on board for discharge planning. Encourage patient to participate in groups to work on coping skills. 09/16/24 10:19 09/16/24 11:50
[2024-09-16 12:56] LABS: Glucose,Whole Blood 127 mg/dL (70-110)
[2024-09-16] MEDS: IBUPROFEN 600 MG TAB PO PRN (13:41)
[2024-09-16] MEDS: ALBUTEROL INHALER 60 PUFF/8 GM INHALER (MHU) INHALATION PRN (15:59)
[2024-09-16 17:19] LABS: Glucose,Whole Blood 109 mg/dL (70-110)
[2024-09-16] MEDS: SYMBICORT 80-4.5 MCG INHALER (MHU) INHALATION SCH (20:05)
[2024-09-16 20:27] LABS: Glucose,Whole Blood 184 mg/dL (70-110)
[2024-09-16] MEDS: ATORVASTATIN 10 MG TAB PO SCH (20:36)
[2024-09-16] MEDS: PARoxetine 10 MG TAB PO SCH (20:36)
[2024-09-16] MEDS: traZODone HCL 50 MG TAB PO SCH (20:36)
[2024-09-16] MEDS ORDERED: DEXTROSE 50% SYRINGE 50 ML IVP PRN ×2 (20:56)
--- NOTE | 2024-09-16 20:59 | P.MDCNMH ---
History of Present Illness H&P Date: 09/16/24 Patient is a 54-year-old male with history of diabetes, COPD/asthma, dyslipidemia currently in mental health unit. [facility] physicians consulted for medical management. He claims that he has occasional dry cough, and has been noticing some weak urinary stream. He claims that he has a history of BPH but not taking any medications. Besides that, denies any chest pain, shortness of breath, abdominal pain, nausea, vomiting, or bowel complaints. Smokes 1 pack/day, denies alcohol use or illicit drug use. He claims that he feels extremely weak, and uses a wheelchair to get around. Per nurse, patient does ambulate. Pertinent positives and negatives as discussed in HPI, a complete review of systems was performed and all other systems are negative. Patient seen and examined at bedside. Vital signs reviewed General: nontoxic, no distress, appears at stated age Derm: warm, dry Head: atraumatic, normocephalic, symmetric Eyes: EOMI, no lid lag, anicteric sclera, pupils equal round reactive to light ENT: Nose and ears atraumatic Neck: No thyromegaly, supple Mouth: no lip lesion, mucus membranes moist Cardiovascular: S1S2 reg, no murmur, no edema Lungs: clear to auscultation bilateral, no rhonchi, no rales, no wheeze, no accessory muscle use Abdominal: soft, nontender to palpation, no guarding, no appreciable organomegaly Ext: no gross muscle atrophy, muscle strength muscle strength 5 out of 5 in all 4 extremities, no contractures Neuro: CN II-XII grossly intact Psych: Alert, oriented, appropriate affect Assessment/Plan: Active: Type 2 diabetes -Last A1c was 8 in July -Patient claims that he takes 15 units of insulin nightly and sliding scale -Home medications have not been verified -Will start patient on sliding scale insulin for now, monitor for hypoglycemia -Unclear if patient is taking Jardiance at home Dyslipidemia -Continue atorvastatin 10 mg nightly COPD/asthma, not in exacerbation -Continue albuterol as needed, Symbicort twice daily Nicotine dependence -On nicotine patch 14 mg daily GERD -Continue pantoprazole 40 daily Schizoaffective disorder Anxiety disorder -Management per psychiatry Thank you for allowing us to participate in the care of this pleasant patient. Do not hesitate to contact us with questions. Someone can be reached from the [facility] hospitalist group all hours of the day at [phone] or via [employer]. Past Medical History Past Medical History: Asthma, Chest Pain / Angina, COPD, CVA/TIA, Diabetes Mellitus, GERD/Reflux, Hearing Disorder / Deafness, Hyperlipidemia, Hypertension, Liver Disease, Osteoarthritis (OA), Pneumonia, Seizure Disorder, S leep Apnea/CPAP/BIPAP Additional Past Medical History / Comment(s): states CVA at 35 yrs old, no weakness @ this time. states seizure at 35 yrs old., DDD- back & neck pain., c arpal tunnel syndrome. Has [facility] public guardian. History of Any Multi-Drug Resistant Organisms: Other MDRO Past Surgical History: Heart Catheterization, Orthopedic Surgery Additional Past Surgical History / Comment(s): Cysts removed, left thumb surgery, colonoscopy 08/24/2019. Skin tags removed from both eyes. Past Anesthesia/Blood Transfusion Reactions: Motion Sickness, Postoperative Nausea & Vomiting (PONV) Past Psychological History: Anxiety, Bipolar, Depression Smoking Status: Current every day smoker Past Alcohol Use History: Abuse Past Drug Use History: None Reported - Past Family History Brother(s) Family Medical History: Diabetes Mellitus Additional Family Medical History / Comment(s): Patient has 2 brothers. One from complications from diabetes. The second is alive with diabetes. Sister(s) Family Medical History: Cancer Additional Family Medical History / Comment(s): Patient has one sister with breast cancer. Patient does not have any children. Father Family Medical History: Cancer Additional Family Medical History / Comment(s): Father in his 40s or 50s from colon cancer. Mother Family Medical History: Cancer Additional Family Medical History / Comment(s): Mother at age 68 from lung cancer. Medications and Allergies Home Medications Medication Instructions Recorded Confirmed Type ARIPiprazole [Abilify] 15 mg PO DAILY 30 Days #30 tab 07/13/24 08/23/24 Rx Albuterol Inhaler [Ventolin Hfa 2 puff INHALATION RT-Q6H PRN 30 07/13/24 08/23/24 Rx Inhaler] Days #1 each Aspirin EC [Ecotrin Low Dose] 81 mg PO DAILY 30 Days #30 tab 07/13/24 08/23/24 Rx Atorvastatin [Lipitor] 10 mg PO HS 30 Days #30 tab 07/13/24 08/23/24 Rx Empagliflozin [Jardiance] 25 mg PO DAILY 30 Days #30 tab 07/13/24 Rx Nicotine 21Mg/24Hr Patch [Habitrol] 1 patch TRANSDERM DAILY 14 Days 07/13/24 08/23/24 Rx #14 patch Pantoprazole [Protonix] 40 mg PO DAILY 30 Days #30 tab 07/13/24 08/23/24 Rx ARIPiprazole [Abilify] 15 mg PO DAILY 30 Days #30 tab 08/15/24 08/23/24 Rx Budesonide/Formoterol Fumarate 2 puff INHALATION RT-BID 30 Days 08/15/24 08/23/24 Rx [Symbicort 80-4.5 Mcg Inhaler] #1 each INSULIN ASPART (NovoLOG) [NovoLOG 0 unit SQ ACHS each 08/15/24 08/23/24 Rx (formulary)] Sertraline [Zoloft] 50 mg PO DAILY 30 Days #30 tab 08/15/24 08/23/24 Rx Sertraline [Zoloft] 100 mg PO DAILY 30 Days #30 tab 08/15/24 08/23/24 Rx traZODone HCL [Desyrel] 100 mg PO HS 30 Days #30 tab 08/15/24 08/23/24 Rx Insulin Lispro [humaLOG Kwikpen] 100 units SQ DAILY 08/23/24 08/23/24 History Ketorolac [Toradol] 15 mg INJ DAILY 08/23/24 08/23/24 History Allergies Allergy/AdvReac Type Severity Reaction Status Date / Time dicyclomine HCl [From Bentyl] Allergy Unknown Dyspnea Verified 09/06/24 06:51 latex Allergy Unknown Rash/Hives Verified 09/06/24 06:51 Benzoate Analogues Allergy Unknown Verified 09/06/24 06:51 nitrofurantoin Allergy Nausea Verified 09/06/24 06:51 [From Macrobid] Penicillins Allergy "[place] Verified 09/06/24 06:51 funny" adhesive AdvReac Unknown Itching Verified 09/06/24 06:51 ciprofloxacin AdvReac Unknown Nausea Verified 09/06/24 06:51 Macrolide Antibiotics AdvReac Unknown Nausea Verified 09/06/24 06:51 sulfamethoxazole AdvReac Unknown Unknown Verified 09/06/24 06:51 [From Bactrim] trimethoprim [From Bactrim] AdvReac Unknown Unknown Verified 09/06/24 06:51 diphenhydramine AdvReac Confusion Verified 09/06/24 06:51 [From Benadryl] Physical Exam Vitals: Vital Signs Temp Pulse Pulse Resp BP BP Pulse Ox 09/16/24 08:45 98.4 F 63 116/66 09/16/24 06:27 97.6 F 57 L 18 107/64 98 09/16/24 05:30 98.0 F 81 18 148/85 99 09/15/24 22:35 98.9 F 62 18 132/84 98 Intake and Output 09/16/24 09/16/24 09/16/24 06:59 14:59 22:59 Other: Weight 76.9 kg Cranial Nerve Examination - Cranial Nerves Cranial Nerve II- Optic: Intact Cranial Nerve III- Oculomotor: Intact Cranial Nerve IV- Trochlear: Intact Cranial Nerve V- Trigeminal: Intact Cranial Nerve - Abducens: Intact Cranial Nerve VII- Facial: Intact Cranial Nerve VIII- Auditory: Intact Cranial Nerve IX- Glossopharyngeal: Intact Cranial Nerve X- Vagus: Intact Cranial Nerve XI- Accessory: Intact Cranial Nerve XII- Hypoglossal: Intact Results Labs: Abnormal Lab Results - Last 24 Hours (Table) 09/15/24 09/15/24 09/16/24 Range/Units 23:28 23:54 07:54 POC Glucose (mg/dL) 133 H 131 H (70-110) mg/dL Urine Glucose (UA) 4+ H (Negative) 09/16/24 09/16/24 Range/Units 12:54 20:11 POC Glucose (mg/dL) 127 H 184 H (70-110) mg/dL Urine Glucose (UA) (Negative)
[2024-09-16] MEDS: MAGNESIUM HYDROXIDE 2,400 MG/30 ML CUP PO PRN (21:00)
[2024-09-16] MEDS ORDERED: ATORVASTATIN 10 MG TAB PO SCH (21:00)
[2024-09-16] MEDS: INSULIN LISPRO (HumaLOG) 100 UNIT/ML 10 mL VL SQ SCH (21:02)
[2024-09-17 07:37] LABS: Glucose,Whole Blood 133 mg/dL (70-110)
[2024-09-17] MEDS: SERTRALINE 100 MG TAB PO SCH (08:16)
--- NOTE | 2024-09-17 12:00 | P.PN ---
Progress Note - Text Progress Note Date: 09/17/24 Interval history: Patient was seen bedside and was directable and agreeable to speak with video games storywriter. Patient states that he has not had an appetite today and has been feeling some mild chronic abdominal pain. He has endorsed feeling this off in the past. Discussed the gastrointestinal symptoms patient might experience with changing Zoloft to Paxil. Patient admits to experiencing nausea and had one episode of emesis last night. Patient states that otherwise, his mood has been "okay ". He is agreeable with continuing the titration from Zoloft to Paxil. Patient has been noted to be moving about the milieu during the daytime. At this time patient denies any suicidal or homicidal ideations intent or plan. Denies any Auditory or visual hallucinations. Patient denies any side effects from the medications and has been compliant with meds. Mental status exam: General Appearance: [Patient appears to be stated age is alert, directable, and cooperative.] Behavior: [No agitated behavior. Patient is calm and directable] Speech: Patient's speech is fluent and nonpressured. Mood/Affect: Mood is improving mildly, affect is congruent and constricted. Suicidality/Homicidality: Patient denies having any suicidal or homicidal ideation intent or plan. Perceptions: Patient denies any auditory or visual hallucinations. Though content/process: [There is no evidence of any delusional thought content and thought process is linear and goal-directed.] Memory and concentration: AOX3, grossly intact for the purposes of this session Judgment and insight: improving mildly Assessment/Plan: Continue with current diagnosis. Patient continues to meet criteria for inpatient psychiatric admission for symptom stabilization and safety.[Patient will be maintained on current psychotropic medication regimen.] Will hold off on further decreasing Zoloft today due to patient's abdominal symptoms. Add Zofran as needed for nausea. Monitor for medication compliance and for any psychotropic medication side effects. Will continue to monitor ongoing response to treatment. Encouraged participation in [employer].
[2024-09-17] MEDS: ONDANSETRON ODT 4 MG TAB PO PRN (12:16)
[2024-09-17 12:46] LABS: Glucose,Whole Blood 148 mg/dL (70-110)
[2024-09-17 17:48] LABS: Glucose,Whole Blood 129 mg/dL (70-110)
[2024-09-17 21:07] LABS: Glucose,Whole Blood 227 mg/dL (70-110)
[2024-09-18 07:47] LABS: Glucose,Whole Blood 128 mg/dL (70-110)
[2024-09-18] MEDS: MAG HYDROX/AL HYDROX/SIMETH 355 ML BOTTLE PO PRN (09:42)
[2024-09-18] MEDS: haloperidoL 5 MG TAB PO PRN (10:24)
[2024-09-18 12:20] LABS: Basophils % (A) 0 %; Eosinophils # (A) 0.3 k/uL (0-0.7); Eosinophils % (A) 3 %; HCT 48.5 % (39.0-53.0); HGB 16.2 gm/dL (13.0-17.5); Lymphocytes # (A) 1.2 k/uL (1.0-4.8); Lymphocytes % (A) 16 %; MCH 28.8 pg (25.0-35.0); MCHC 33.5 g/dL (31.0-37.0); MCV 85.8 fL (80.0-100.0); Mean Platelet Volume 7.3; Monocytes # (A) 0.3 k/uL (0-1.0); Monocytes % (A) 4 %; Neutrophils # (A) 5.6 k/uL (1.3-7.7); Neutrophils % (A) 74 %; Platelet Count 194 k/uL (150-450); RBC 5.65 m/uL (4.30-5.90); RDW 14.1 % (11.5-15.5); WBC 7.5 k/uL (3.8-10.6)
[2024-09-18 12:35] LABS: ALT 44 U/L (4-49); AST 25 U/L (17-59); African American GFR (CKD) >90 (>60 ml/min/1.73 sqM); Albumin 4.2 g/dL (3.5-5.0); Alkaline Phosphatase 88 U/L (38-126); Anion Gap 7 mmol/L; Blood Urea Nitrogen 19 mg/dL (9-20); Calcium 9.6 mg/dL (8.4-10.2); Carbon Dioxide 30 mmol/L (22-30); Chloride 103 mmol/L (98-107); Glucose 177 mg/dL (74-99); Non-African American GFR(CKD) >90 (>60 ml/min/1.73 sqM); Potassium 4.5 mmol/L (3.5-5.1); Sodium 140 mmol/L (137-145); Total Bilirubin 0.4 mg/dL (0.2-1.3); Total Protein 6.5 g/dL (6.3-8.2)
[2024-09-18 13:08] LABS: Glucose,Whole Blood 143 mg/dL (70-110)
--- NOTE | 2024-09-18 13:27 | P.PN ---
Progress Note - Text Progress Note Date: 09/18/24 Interval History: Patient was seen wandering the hallways and was directable and agreeable to casimiro mcghee with expert medical writer in the office. Patient reports several physical symptoms including vomiting and back pain that has been ongoing for a few days. Patient reportedly has been complaining about vomiting and poor appetite however was seen eating a full meal for breakfast and was later seen spitting a [place] rancher out to the vomiting container with no reported emesis seen. Patient reports not feeling safe returning home to his penit[facility] due to drugs and guns being there. Patient states he ultimately wishes to leave the state however he was encouraged to communicate with his guardian and [facility] team. At this time patient denies any suicidal or homicidal ideations, intent or plan. Patient denies any auditory, visual hallucinations and denies any paranoia or delusions. Patient denies any side effects from the medications and has been compliant with meds. Mental Status Exam: General Appearance: Patient appears to be stated age is alert, directable, and cooperative. He is seen ambulating via wheelchair on the unit, holding a vomiting bin Behavior: Patient is calmly seated without any agitated behavior. Speech: Patient's speech is fluent and nonpressured. Mood/Affect: Mood is improving mildly, affect is congruent and constricted. Suicidality/Homicidality: Patient denies having any suicidal or homicidal ideation intent or plan. Perceptions: Patient denies any visual hallucinations and denies any auditory hallucinations Though content/process: There is no evidence of any delusional thought content and thought process is linear and goal-directed. Memory and concentration: AOX3, grossly intact for the purposes of this session Judgment and insight: Improving mildly Assessment Schizoaffective disorder, depressed type Generalized anxiety disorder Nicotine dependence Alcohol use disorder, in sustained remission Plan: -Patient continues to meet criteria for inpatient psychiatric admission for symptom stabilization and safety. Patient has signed adult voluntary form and medication consent and was placed in patient's chart. -Medications: Discontinue Paxil 10 mg at bedtime, start BuSpar 5 mg twice daily for anxiety, continue Abilify 15 mg daily for psychosis, Zoloft 100 mg daily for depression/anxiety, trazodone 100 mg at bedtime for insomnia -When necessary Haldol for agitation/aggression. -Labs: CBC/CMP WNL -NRT -nicotine patch -SW on board for discharge planning. Encouraged the patient to participate in milieu. Anticipate discharge back to penitentiary in 2-3 days. Diversion plan emphasized today during team meeting given patient's frequent readmissions given his penitentiary placement
[2024-09-18] MEDS: ONDANSETRON ODT 4 MG TAB PO PRN (16:02)
[2024-09-18 18:00] LABS: Glucose,Whole Blood 119 mg/dL (70-110)
[2024-09-18 20:02] LABS: Glucose,Whole Blood 164 mg/dL (70-110)
[2024-09-18] MEDS: ACETAMINOPHEN TAB 325 MG TAB PO PRN (20:49)
[2024-09-18] MEDS: busPIRone HCl 5 MG TAB PO SCH (20:50)
[2024-09-18 23:04] VITALS: RESP 14
[2024-09-19 07:41] LABS: Glucose,Whole Blood 130 mg/dL (70-110)
[2024-09-19 08:05] VITALS: BP 116/65; PULSE 59; TEMP 97.1
[2024-09-19 12:37] LABS: Glucose,Whole Blood 100 mg/dL (70-110)
--- NOTE | 2024-09-19 15:02 | P.DS ---
Providers Date of admission: 09/16/24 04:52 Expected date of discharge: 09/19/24 Attending physician: Rosina Cedillo MD Consults: 09/16/24 04:59 Consult Physician Routine Consulting Provider: Halle Isaacs Consult Reason/Comments: Medical managment Do you want consulting provider notified?: Yes Primary care physician: Stated None - Discharge Diagnosis(es) (1) Schizoaffective disorder, depressive type Current Visit: Yes Status: Acute Priority: High (2) Nicotine dependence Current Visit: Yes Status: Acute Priority: Low (3) Generalized anxiety disorder Current Visit: Yes Status: Acute Priority: Medium (4) Alcohol use disorder in remission Current Visit: Yes Status: Chronic Priority: Low Hospital Course: Admission HPI: Admission note was completed by Dr. Jarrell "Patient presents to the ED reporting suicidal ideation and feeling unsafe at care home. Patient is calm and cooperative on assessment. He states that he does not like his care home because he heard someone talking about shooting guns. He denies his safety being threatened or any form of abuse occurring for him. He just states that he does not like being in that environment. He is hoping to find alternate placement including being considered for a detention. He says that stress of being in the care home over the past 1 year is contributed to worsening in his mental health. He endorses having suicidal ideation with a plan to no longer take his medical or psychiatric medications. He also self- reports hearing auditory hallucinations that are negative in nature that occur primarily at nighttime, with the last time being last night. He reports these have not changed or worsened but that they have been ongoing for a long time. Patient is able to voice this concern in a linear thought process with no disorganization. He also reports visual hallucinations of seeing "black dots "when he is trying to sleep. He says he would like something for his anxiety and is agreeable with Zoloft being changed to Paxil. He reports trouble sleeping at night when he is not taking trazodone. He reports low energy and anhedonia. He currently endorses passive suicidal ideation. He denies active suicidal ideation, intent, or plan. He denies homicidal ideation. He denies current auditory and visual hallucinations and paranoia. He denies symptoms consistent with jefferson. He denies access to firearms or weapons." Hospital course: Upon admission to the unit patient was directable and agreeable to commence treatment and signed adult voluntary form.. Patient got along well with other patients on the unit and followed unit protocol. Patient was compliant with the medications and denied any side effects throughout hospital course. Patient was started on BuSpar 5 mg twice daily for anxiety, patient continued on Abilify 15 mg daily for psychosis, Zoloft 100 mg daily for depression/anxiety, trazodone 100 mg at bedtime for insomnia. Patient spoke of his stressors and engaged in therapy both group and individual. Patient was also seen by medical team for history and physical exam. Throughout the course of the hospitalization patient gradually improved with regards to mood, anxiety, sleep and returned back to their baseline level of functioning. On the day of discharge patient denied any suicidal or homicidal ideations intent or plan denied any auditory or visual hallucinations. The patient denied any access to guns or weapons. Patient denied any paranoia and did not endorse any delusions. Patient does not have a significant history of substance abuse and was counseled on abstaining from all substances including alcohol and marijuana. Patient was also counseled on the medications and need for regular compliance and was encouraged to follow-up with their outpatient appointment for mental health and also for primary care. Patient to be discharged back home to care home and will follow-up with [facility]. Patient also has [facility] who is in contact with patient regularly. Mental status exam: General Appearance: Patient appears to be stated age is alert, pleasant, and cooperative. Patient is in no acute distress and has improved hygiene and grooming Behavior: Patient is calmly seated without any agitated behavior. Speech: Patient's speech is fluent and nonpressured. Mood/Affect: Patient reports their mood is "better", affect is congruent and euthymic, more reactive. Suicidality/Homicidality: Patient denies having any suicidal or homicidal ideation intent or plan. Perceptions: Patient denies any auditory or visual hallucinations. Though content/process: There is no evidence of any delusional thought content and thought process is linear and goal-directed. More future oriented Memory and concentration: AOX3, grossly intact for the purposes of this session. Can spell "WORLD" backwards correctly. Judgment and insight: Chronically poor, however has improved with guarded prognosis Impression: Schizoaffective disorder, depressed type Generalized anxiety disorder Nicotine dependence Alcohol use disorder, in sustained remission Plan: -Continue with discharge today as patient has improved and stabilized psychiatrically and is not currently an imminent threat to themself and/or others. -Continue medications: Zoloft 100 mg daily, trazodone 100 mg at bedtime, Abilify 15 mg daily, BuSpar 5 mg twice daily -Patient was counseled on the need for medication compliance and appropriate follow-up at mental health and also primary care for medical issues. Patient verbalized understanding and agreed. -Social work to help coordinate patients discharge today arrange for and conduct family meeting to ensure safety upon discharge and answer any questions/concerns. also to ensure safe home environment that guns/weapons are either removed from the home or locked away. Social work also to arrange for patients follow up appointments with [facility] for psychiatric care along with follow up with primary care provider. -Patient counseled on abstaining from recreational drugs and marijuana and alcohol. Was informed/educated on the adverse effects on their physical and mental health. Patient verbally agreed and understood. -Patient was instructed to return to the hospital or seek immediate medical care if their psychiatric or medical symptoms do worsen or reoccur. Abnormal Labs 09/15/24 09/15/24 09/16/24 23:28 23:54 07:54 Glucose POC Glucose (mg/dL) 133 H 131 H Hemoglobin A1c Urine Glucose (UA) 4+ H 09/16/24 09/16/24 09/17/24 12:54 20:11 07:36 Glucose POC Glucose (mg/dL) 127 H 184 H 133 H Hemoglobin A1c Urine Glucose (UA) 09/17/24 09/17/24 09/17/24 08:09 12:44 17:46 Glucose POC Glucose (mg/dL) 148 H 129 H Hemoglobin A1c 7.4 H Urine Glucose (UA) 09/17/24 09/18/24 09/18/24 21:06 07:43 11:52 Glucose 177 H POC Glucose (mg/dL) 227 H 128 H Hemoglobin A1c Urine Glucose (UA) 09/18/24 09/18/24 09/18/24 13:00 17:57 20:01 Glucose POC Glucose (mg/dL) 143 H 119 H 164 H Hemoglobin A1c Urine Glucose (UA) 09/19/24 07:36 Glucose POC Glucose (mg/dL) 130 H Hemoglobin A1c Urine Glucose (UA) Vital Signs Temp 97.1 F L 09/19/24 08:04 Pulse 59 L 09/19/24 08:04 Resp 14 09/18/24 20:45 BP 116/65 09/19/24 08:04 Pulse Ox 96 09/19/24 08:04 FiO2 Allergies Allergy/AdvReac Type Severity Reaction Status Date / Time dicyclomine HCl [From Bentyl] Allergy Unknown Dyspnea Verified 09/06/24 06:51 latex Allergy Unknown Rash/Hives Verified 09/06/24 06:51 Benzoate Analogues Allergy Unknown Verified 09/06/24 06:51 nitrofurantoin Allergy Nausea Verified 09/06/24 06:51 [From Macrobid] Penicillins Allergy "Badger Verified 09/06/24 06:51 funny" adhesive AdvReac Unknown Itching Verified 09/06/24 06:51 ciprofloxacin AdvReac Unknown Nausea Verified 09/06/24 06:51 Macrolide Antibiotics AdvReac Unknown Nausea Verified 09/06/24 06:51 sulfamethoxazole AdvReac Unknown Unknown Verified 09/06/24 06:51 [From Bactrim] trimethoprim [From Bactrim] AdvReac Unknown Unknown Verified 09/06/24 06:51 diphenhydramine AdvReac Confusion Verified 09/06/24 06:51 [From Benadryl] Patient Condition at Discharge: Stable Plan - Discharge Summary Discharge Rx Participant: Yes New Discharge Prescriptions: New busPIRone HCl [Buspar] 5 mg PO BID 30 Days #60 tab Dapagliflozin Propanediol [Farxiga] 10 mg PO DAILY 30 Days #30 tab INSULIN LISPRO (HumaLOG) [HumaLOG] 0 unit SQ ACHS each ARIPiprazole [Abilify] 15 mg PO DAILY 30 Days #30 tab Aspirin 81 mg PO DAILY 30 Days #30 tab traZODone HCL [Desyrel] 100 mg PO HS 30 Days #60 tab Nicotine 14Mg/24Hr Patch [Habitrol] 1 patch TRANSDERM DAILY patch Atorvastatin [Lipitor] 10 mg PO HS 30 Days #30 tab Pantoprazole [Protonix] 40 mg PO AC-BRKFST 30 Days #30 tab Sertraline [Zoloft] 100 mg PO DAILY 30 Days #30 tab Continue Nicotine 21Mg/24Hr Patch [Habitrol] 1 patch TRANSDERM DAILY 14 Days #14 patch Atorvastatin [Lipitor] 10 mg PO HS 30 Days #30 tab Pantoprazole [Protonix] 40 mg PO DAILY 30 Days #30 tab Insulin Lispro [humaLOG Kwikpen] 100 units SQ DAILY Aspirin EC [Ecotrin Low Dose] 81 mg PO DAILY 30 Days #30 tab Budesonide/Formoterol Fumarate [Symbicort 80-4.5 Mcg Inhaler] 2 puff INHALATION RT-BID 30 Days #1 each Discontinued Albuterol Inhaler [Ventolin Hfa Inhaler] 2 puff INHALATION RT-Q6H PRN 30 Days #1 each PRN Reason: Shortness Of Breath ARIPiprazole [Abilify] 15 mg PO DAILY 30 Days #30 tab Sertraline [Zoloft] 100 mg PO DAILY 30 Days #30 tab Ketorolac [Toradol] 15 mg INJ DAILY ARIPiprazole [Abilify] 15 mg PO DAILY 30 Days #30 tab Empagliflozin [Jardiance] 25 mg PO DAILY 30 Days #30 tab traZODone HCL [Desyrel] 100 mg PO HS 30 Days #30 tab INSULIN ASPART (NovoLOG) [NovoLOG (formulary)] 0 unit SQ ACHS each Sertraline [Zoloft] 50 mg PO DAILY 30 Days #30 tab Discharge Medication List Aspirin EC [Ecotrin Low Dose] 81 mg PO DAILY 30 Days #30 tab 07/13/24 [Rx] Atorvastatin [Lipitor] 10 mg PO HS 30 Days #30 tab 07/13/24 [Rx] Nicotine 21Mg/24Hr Patch [Habitrol] 1 patch TRANSDERM DAILY 14 Days #14 patch 07/13/24 [Rx] Pantoprazole [Protonix] 40 mg PO DAILY 30 Days #30 tab 07/13/24 [Rx] Budesonide/Formoterol Fumarate [Symbicort 80-4.5 Mcg Inhaler] 2 puff INHALATION RT-BID 30 Days #1 each 08/15/24 [Rx] Insulin Lispro [humaLOG Kwikpen] 100 units SQ DAILY 08/23/24 [History] ARIPiprazole [Abilify] 15 mg PO DAILY 30 Days #30 tab 09/19/24 [Rx] Aspirin 81 mg PO DAILY 30 Days #30 tab 09/19/24 [Rx] Atorvastatin [Lipitor] 10 mg PO HS 30 Days #30 tab 09/19/24 [Rx] Dapagliflozin Propanediol [Farxiga] 10 mg PO DAILY 30 Days #30 tab 09/19/24 [Rx] INSULIN LISPRO (HumaLOG) [HumaLOG] 0 unit SQ ACHS each 09/19/24 [Rx] Nicotine 14Mg/24Hr Patch [Habitrol] 1 patch TRANSDERM DAILY patch 09/19/24 [Rx] Pantoprazole [Protonix] 40 mg PO AC-BRKFST 30 Days #30 tab 09/19/24 [Rx] Sertraline [Zoloft] 100 mg PO DAILY 30 Days #30 tab 09/19/24 [Rx] busPIRone HCl [Buspar] 5 mg PO BID 30 Days #60 tab 09/19/24 [Rx] traZODone HCL [Desyrel] 100 mg PO HS 30 Days #60 tab 09/19/24 [Rx] Follow up Appointment(s)/Referral(s): [facility] [Outside] - 09/25/24 10:30 am (09/25/2024 10:30AM - 11:30AM [place] 09/28/2024 11:00AM - 11:30AM CAT[facility] ZHAO ) [facility] [REFERRING] - 1 Week Patient Instructions/Handouts: How to Stop Smoking (DC), Schizoaffective Disorder (DC), Generalized Anxiety Disorder (ED), Abuse of Alcohol (DC) Activity/Diet/Wound Care/Special Instructions: [facility] Discharge Info Avoid the use of street drugs and alcohol. Take all medications as prescribed. When you are in need of refills on your medications, please contact your outpatient medical provider and/or outpatient psychiatrist. Please go to your scheduled outpatient appointments for aftercare treatment. If symptoms return or become worse, call the crisis line at or and/or visit the nearest emergency room for assistance. National Suicide and Crisis Lifeline - call or text 988 Discharge Disposition: HOME SELF-CARE
== END 2024-09-19 15:09 | disposition home or self-care (01) | DRG 885 ==
LOC: EC 22:34 → 3MHU 09-16 04:52
PROVIDERS: ADMIT Psychiatry & Neurology Psychiatry; ATTEND Psychiatry & Neurology Psychiatry
DX: F25.1 Schizoaffective disorder, depressive type (principal); R45.851 Suicidal ideations; E11.9 Type 2 diabetes mellitus without complications; J44.89 Other specified chronic obstructive pulmonary disease; F31.9 Bipolar disorder, unspecified; G40.909 Epilepsy, unspecified, not intractable, without status epilepticus; F10.11 Alcohol abuse, in remission; I10 Essential (primary) hypertension; Z79.4 Long term (current) use of insulin; E78.5 Hyperlipidemia, unspecified; F17.210 Nicotine dependence, cigarettes, uncomplicated; F41.1 Generalized anxiety disorder; N40.0 Benign prostatic hyperplasia without lower urinary tract symptoms; K21.9 Gastro-esophageal reflux disease without esophagitis; H91.90 Unspecified hearing loss, unspecified ear; M19.90 Unspecified osteoarthritis, unspecified site; G47.30 Sleep apnea, unspecified; G47.00 Insomnia, unspecified; G89.29 Other chronic pain; Z91.51 Personal history of suicidal behavior; Z86.73 Personal history of transient ischemic attack (TIA), and cerebral infarction without residual deficits; Z79.899 Other long term (current) drug therapy; Z79.84 Long term (current) use of oral hypoglycemic drugs; Z79.82 Long term (current) use of aspirin; Z79.51 Long term (current) use of inhaled steroids; Z87.01 Personal history of pneumonia (recurrent); Z88.0 Allergy status to penicillin; Z91.040 Latex allergy status; Z88.8 Allergy status to other drugs, medicaments and biological substances; Z88.2 Allergy status to sulfonamides; Z56.0 Unemployment, unspecified
CPT/HCPCS: 36415; 80053; 80306; 81003; 82075; 83036; 84443; 85025; 87502; 87635; 96372; 99285

== ENCOUNTER 2024-09-26 19:30 | Outpatient (CLI) | payer OTHER ==
--- NOTE | 2024-10-05 11:59 | P.PCN ---
Description of Procedure: POLYSOMNOGRAPHY REPORT PROCEDURE(S)/DATE(S): Polysomnography 09/26/2024 CLINICAL: Patient has been seen in the sleep center for evaluation of obstructive sleep apnea-hypopnea syndrome. Please see my consultation. Sleep study has been done for evaluation of patient breathing during the sleep. PROCEDURE: The standard montage for clinical polysomnography included the electroencephalogram, the electrooculogram, the mentalis surface electromyography and Lead II cardiography. The respiratory battery consisted of measurements of nasal/buccal air flow, pressure transducer measurements from nose, thoracic and/or abdominal effort and intercostal surface electromyography. Video monitoring has been done to check for any parasomnia events. Nocturnal oxyhemoglobin saturations were obtained by finger oximetry. Step-baldwin titration with positive airway pressure was utilized to control the respiratory events, if necessary. RESULTS: During the diagnostic sleep study sleep efficiency was in high range 95.4%. Latency to sleep onset was normal at 12.0 min. Sleep architecture showed stage NI was significantly increased to 24.0%, Delta sleep was absent 0%, REM sleep was in normal range 25.3%. Respiratory channel showed 3 obstructive apneas, 0 mixed apneas, 0 central apneas, 107 hypopneas with lowest oxygen level 82%. Total apnea hypopnea index was 16.8. Heart rate was in the range between 46 and 52, average 49. EMG showed 0 periodic limb movements per hour with 0 micro-arousals per hour. IMPRESSIONS: 1. Moderate obstructive sleep apnea hypopnea syndrome. 2. No significant periodic limb movements have been documented. Please see other impressions from consultation PLAN: 1. The patient will have AutoPAP treatment for correction of respiratory abnormalities during the sleep. 2. Watching weight. 3. Sleep hygiene with regular time in bed for at least 7-1/2 hours. 4. No driving if feeling sleepiness. 5. I will see patient for follow-up visit to evaluate clinical response on treatment, compliance with treatment and [place] adjustments related to mask fitting, pressure and humidification. Thank you very much for allowing me to participate in the management of your patient. Sincerely, Marco A Pulido MD, PhD, FAASM. Diplomat of [place] [employer], Sleep Medicine Board by [place] [employer] Network Relations Consultant of [facility] [place] cc: Bryan Martinez MD
== END 2024-09-27 05:20 | disposition home or self-care (01) ==
LOC: 3 N SLEEP 19:30
PROVIDERS: ATTEND Internal Medicine
DX: G47.33 Obstructive sleep apnea (adult) (pediatric) (principal); F17.200 Nicotine dependence, unspecified, uncomplicated; Z91.040 Latex allergy status; Z88.0 Allergy status to penicillin; Z88.2 Allergy status to sulfonamides; Z91.048 Other nonmedicinal substance allergy status; Z88.1 Allergy status to other antibiotic agents; Z88.8 Allergy status to other drugs, medicaments and biological substances
CPT/HCPCS: 95810

== ENCOUNTER 2024-09-27 05:42 | Emergency (ER) | payer OTHER ==
--- NOTE | 2024-09-27 06:24 | ED ---
Abdominal Pain HPI - General Chief Complaint: Abdominal Pain Stated Complaint: Abd pain Time Seen by Provider: 09/27/24 06:04 Source: patient, RN notes reviewed Mode of arrival: ambulatory Limitations: no limitations - History of Present Illness Initial Comments: This is a 54-year-old male who presents to the emergency department for abdominal pain and chest pain. Patient is well-known to this emergency department for these complaints and others. Patient states that the abdominal pain has been going on for a week and the chest pain started a couple of days ago. The abdominal pain is described as diffuse. His chest pain is sharp and stabbing in nature. States that it is centralized. Feels like he has minor shortness of breath. Also states that he feels very dehydrated. MD Complaint: abdominal pain - Related Data Home Medications Medication Instructions Recorded Confirmed Insulin Lispro [humaLOG Kwikpen] 100 units SQ DAILY 08/23/24 08/23/24 Previous Rx's Medication Instructions Recorded Aspirin EC [Ecotrin Low Dose] 81 mg PO DAILY 30 Days #30 tab 07/13/24 Atorvastatin [Lipitor] 10 mg PO HS 30 Days #30 tab 07/13/24 Nicotine 21Mg/24Hr Patch [Habitrol] 1 patch TRANSDERM DAILY 14 Days 07/13/24 #14 patch Pantoprazole [Protonix] 40 mg PO DAILY 30 Days #30 tab 07/13/24 Budesonide/Formoterol Fumarate 2 puff INHALATION RT-BID 30 Days 08/15/24 [Symbicort 80-4.5 Mcg Inhaler] #1 each ARIPiprazole [Abilify] 15 mg PO DAILY 30 Days #30 tab 09/19/24 Aspirin 81 mg PO DAILY 30 Days #30 tab 09/19/24 Atorvastatin [Lipitor] 10 mg PO HS 30 Days #30 tab 09/19/24 Dapagliflozin Propanediol [Farxiga] 10 mg PO DAILY 30 Days #30 tab 09/19/24 INSULIN LISPRO (HumaLOG) [HumaLOG] 0 unit SQ ACHS each 09/19/24 Nicotine 14Mg/24Hr Patch [Habitrol] 1 patch TRANSDERM DAILY patch 09/19/24 Pantoprazole [Protonix] 40 mg PO AC-BRKFST 30 Days #30 tab 09/19/24 Sertraline [Zoloft] 100 mg PO DAILY 30 Days #30 tab 09/19/24 busPIRone HCl [Buspar] 5 mg PO BID 30 Days #60 tab 09/19/24 traZODone HCL [Desyrel] 100 mg PO HS 30 Days #60 tab 09/19/24 Allergies Allergy/AdvReac Type Severity Reaction Status Date / Time dicyclomine HCl [From Bentyl] Allergy Unknown Dyspnea Verified 09/27/24 05:49 latex Allergy Unknown Rash/Hives Verified 09/27/24 05:49 Benzoate Analogues Allergy Unknown Verified 09/27/24 05:49 nitrofurantoin Allergy Nausea Verified 09/27/24 05:49 [From Macrobid] Penicillins Allergy "Snook Verified 09/27/24 05:49 funny" adhesive AdvReac Unknown Itching Verified 09/27/24 05:49 ciprofloxacin AdvReac Unknown Nausea Verified 09/27/24 05:49 Macrolide Antibiotics AdvReac Unknown Nausea Verified 09/27/24 05:49 sulfamethoxazole AdvReac Unknown Unknown Verified 09/27/24 05:49 [From Bactrim] trimethoprim [From Bactrim] AdvReac Unknown Unknown Verified 09/27/24 05:49 diphenhydramine AdvReac Confusion Verified 09/27/24 05:49 [From Benadryl] Review of Systems ROS Statement: Those systems with pertinent positive or pertinent negative responses have been documented in the HPI. ROS Other: All systems not noted in ROS Statement are negative. Past Medical History Past Medical History: Asthma, Chest Pain / Angina, COPD, CVA/TIA, Diabetes Mellitus, GERD/Reflux, Hearing Disorder / Deafness, Hyperlipidemia, Hypertension, Liver Disease, Osteoarthritis (OA), Pneumonia, Seizure Disorder, Sleep Apnea/CPAP/BIPAP Additional Past Medical History / Comment(s): states CVA at 35 yrs old, no weakness @ this time. states seizure at 35 yrs old., DDD- back & neck pain., carpal tunnel syndrome. Has [employer] public guardian. History of Any Multi-Drug Resistant Organisms: Other MDRO Past Surgical History: Heart Catheterization, Orthopedic Surgery Additional Past Surgical History / Comment(s): Cysts removed, left thumb surgery, colonoscopy 08/24/2019. Skin tags removed from both eyes. Past Anesthesia/Blood Transfusion Reactions: Motion Sickness, Postoperative Nausea & Vomiting (PONV) Past Psychological History: Anxiety, Bipolar, Depression Smoking Status: Current every day smoker Past Alcohol Use History: Abuse Past Drug Use History: None Reported - Past Family History Brother(s) Family Medical History: Diabetes Mellitus Additional Family Medical History / Comment(s): Patient has 2 brothers. One from complications from diabetes. The second is alive with diabetes. Sister(s) Family Medical History: Cancer Additional Family Medical History / Comment(s): Patient has one sister with breast cancer. Patient does not have any children. Father Family Medical History: Cancer Additional Family Medical History / Comment(s): Father in his 40s or 50s from colon cancer. Mother Family Medical History: Cancer Additional Family Medical History / Comment(s): Mother at age 68 from lung cancer. General Exam Limitations: no limitations General appearance: alert, in no apparent distress Head exam: Present: atraumatic, normocephalic, normal inspection Respiratory exam: Present: normal lung sounds bilaterally. Absent: respiratory distress, wheezes, rales, rhonchi, stridor Cardiovascular Exam: Present: regular rate, normal rhythm GI/Abdominal exam: Present: soft, normal bowel sounds. Absent: distended, tenderness, guarding, rebound, rigid Neurological exam: Present: alert, oriented X3, CN II-XII intact Psychiatric exam: Present: normal affect, normal mood Skin exam: Present: warm, dry, intact, normal color. Absent: rash Course Vital Signs 09/27/24 09/27/24 09/27/24 05:43 06:13 07:33 Temperature 97.6 F 97.7 F Pulse Rate 57 L 54 L Respiratory 18 14 Rate Blood Pressure 109/69 117/81 110/78 O2 Sat by Pulse 96 96 Oximetry 09/27/24 08:00 Temperature 97.4 F L Pulse Rate 61 Respiratory 16 Rate Blood Pressure O2 Sat by Pulse 97 Oximetry Medical Decision Making - Medical Decision Making This is a 54-year-old male who presents to the emergency department for abdominal pain. Was pt. sent in by a medical professional or institution? @ -No Did you speak to anyone other than the patient for history? @ -No Did you review nursing and triage notes? @ -Yes, and I agree, it is accurate with regards to the patient's symptoms. Were old charts reviewed? @ -No Differential Diagnosis? @ -Differential Abdominal Pain Men: Appendicitis, cholecystitis, diverticulosis, ischemic bowel, pancreatitis, hepatitis, UTI, gastroenteritis, AAA, incarcerated hernia, bowel obstruction, constipation, inflammatory bowel, hepatitis, peptic ulcer disease, splenic infarction, perforated viscus, testicular torsion, this is not meant to be an all-inclusive list EKG interpreted by me (3pts min.)? @ -EKG interpreted by me demonstrating the following: Sinus bradycardia. Ventricular rate 54 bpm, MS interval 156 ms, QRS duration 105 ms, QTc 414 ms. X-rays interpreted by me (1pt min.)? @ -Chest x-ray obtained, my interpretation identifies no localized consolidations or infiltrates. KUB x-ray obtained. My interpretation identifies no dilation of the bowel loops. CT interpreted by me (1pt min.)? @ -Not obtained U/S interpreted by me (1pt. min.)? @ -Not obtained What testing was considered but not performed? (CT, X-rays, U/S, labs)? Why? @ -None What meds were considered but not given? Why? @ -None Did you discuss the management of the patient with other professionals? @ -No Did you reconcile home meds? @ -No Was smoking cessation discussed for >3mins.? @ -I discussed smoking cessation for greater than 3 minutes. The risk of smoking were discussed with the patient including but not limited to risks of cancer, stroke, coronary artery disease and COPD. Also discussed with patient were multiple methods of quitting smoking. Lastly we discussed the financial cost of smoking. Was critical care preformed (if so, how long)? @ -No Were there social determinants of health that impacted care today? How? (Homelessness, low income, unemployed, alcoholism, drug addiction, transportation, low edu. Level, literacy, decrease access to med. care, [place] [facility], rehab)? @ -No Was there de-escalation of care discussed even if they declined? (Discuss DNR or withdrawal of care, Hospice)? @ -No What co-morbidities impacted this encounter? (DM, HTN, Smoking, COPD, CAD, Cancer, CVA, Hep., AIDS, mental health diagnosis, sleep apnea, morbid obesity)? @ -Smoking, DM Was patient admitted / discharged? @ -Discharged. Lab work unremarkable. Troponin negative. Urinalysis negative for signs of infection. Chest x-ray reveals no acute findings. KUB x-ray demonstrates moderate stool burden without other acute process. Symptoms treated in the emergency department and findings were reviewed with the patient. Advised Tylenol as needed for pain relief as well as something like MiraLAX for treatment of the constipation. Patient discharged home in stable condition. Case discussed with ED attending Dr. Sheppard. Return precautions reviewed in depth, the patient is instructed to return to the emergency department with any new, worsening, or concerning symptoms. Patient verbalized understanding. Undiagnosed new problem with uncertain prognosis? @ -None Drug Therapy requiring intensive monitoring for toxicity (Heparin, Nitro, Insulin, Cardizem)? @ -None Were any procedures done? @ -None Diagnosis/symptom? @ -Chest pain, abdominal pain Acute, or Chronic, or Acute on Chronic? @ -Acute Uncomplicated (without systemic symptoms) or Complicated (systemic symptoms)? @ -Uncomplicated Side effects of treatment? @ -None Exacerbation, Progression, or Severe Exacerbation] @ -Not applicable Poses a threat to life or bodily function? @ -No - Lab Data Result diagrams: 09/27/24 06:55 09/27/24 06:55 Lab Results 09/27/24 09/27/24 09/27/24 Range/Units 06:55 06:55 06:55 WBC 6.8 (3.8-10.6) k/uL RBC 5.70 (4.30-5.90) m/uL Hgb 16.2 (13.0-17.5) gm/dL Hct 48.8 (39.0-53.0) % MCV 85.6 (80.0-100.0) fL MCH 28.4 (25.0-35.0) pg MCHC 33.2 (31.0-37.0) g/dL RDW 14.3 (11.5-15.5) % Plt Count 187 (150-450) k/uL MPV 7.7 Neutrophils % 73 % Lymphocytes % 16 % Monocytes % 6 % Eosinophils % 4 % Basophils % 0 % Neutrophils # 5.0 (1.3-7.7) k/uL Lymphocytes # 1.1 (1.0-4.8) k/uL Monocytes # 0.4 (0-1.0) k/uL Eosinophils # 0.3 (0-0.7) k/uL Basophils # 0.0 (0-0.2) k/uL Sodium 141 (137-145) mmol/L Potassium 4.3 (3.5-5.1) mmol/L Chloride 106 (98-107) mmol/L Carbon Dioxide 26 (22-30) mmol/L Anion Gap 9 mmol/L BUN 22 H (9-20) mg/dL Creatinine 0.68 (0.66-1.25) mg/dL Est GFR (CKD-EPI)AfAm >90 (>60 ml/min/1.73 sqM) Est GFR (CKD-EPI)NonAf >90 (>60 ml/min/1.73 sqM) Glucose 141 H (74-99) mg/dL Calcium 9.3 (8.4-10.2) mg/dL Total Bilirubin 0.5 (0.2-1.3) mg/dL AST 23 (17-59) U/L ALT 35 (4-49) U/L Alkaline Phosphatase 85 (38-126) U/L Troponin I <0.012 (0.000-0.034) ng/mL Total Protein 6.2 L (6.3-8.2) g/dL Albumin 4.0 (3.5-5.0) g/dL Lipase 106 (23-300) U/L Urine Color Urine Appearance (Clear) Urine pH (5.0-8.0) Ur Specific Shubert (1.001-1.035) Urine Protein (Negative) Urine Glucose (UA) (Negative) Urine Ketones (Negative) Urine Blood (Negative) Urine Nitrite (Negative) Urine Bilirubin (Negative) Urine Urobilinogen (<2.0) mg/dL Ur Leukocyte Esterase (Negative) 09/27/24 Range/Units 07:18 WBC (3.8-10.6) k/uL RBC (4.30-5.90) m/uL Hgb (13.0-17.5) gm/dL Hct (39.0-53.0) % MCV (80.0-100.0) fL MCH (25.0-35.0) pg MCHC (31.0-37.0) g/dL RDW (11.5-15.5) % Plt Count (150-450) k/uL MPV Neutrophils % % Lymphocytes % % Monocytes % % Eosinophils % % Basophils % % Neutrophils # (1.3-7.7) k/uL Lymphocytes # (1.0-4.8) k/uL Monocytes # (0-1.0) k/uL Eosinophils # (0-0.7) k/uL Basophils # (0-0.2) k/uL Sodium (137-145) mmol/L Potassium (3.5-5.1) mmol/L Chloride (98-107) mmol/L Carbon Dioxide (22-30) mmol/L Anion Gap mmol/L BUN (9-20) mg/dL Creatinine (0.66-1.25) mg/dL Est GFR (CKD-EPI)AfAm (>60 ml/min/1.73 sqM) Est GFR (CKD-EPI)NonAf (>60 ml/min/1.73 sqM) Glucose (74-99) mg/dL Calcium (8.4-10.2) mg/dL Total Bilirubin (0.2-1.3) mg/dL AST (17-59) U/L ALT (4-49) U/L Alkaline Phosphatase (38-126) U/L Troponin I (0.000-0.034) ng/mL Total Protein (6.3-8.2) g/dL Albumin (3.5-5.0) g/dL Lipase (23-300) U/L Urine Color Light Yellow Urine Appearance Clear (Clear) Urine pH 6.0 (5.0-8.0) Ur Specific Shubert 1.035 (1.001-1.035) Urine Protein Negative (Negative) Urine Glucose (UA) 4+ H (Negative) Urine Ketones Negative (Negative) Urine Blood Negative (Negative) Urine Nitrite Negative (Negative) Urine Bilirubin Negative (Negative) Urine Urobilinogen <2.0 (<2.0) mg/dL Ur Leukocyte Esterase Negative (Negative) - Radiology Data Radiology results: report reviewed, image reviewed Disposition Clinical Impression: Abdominal pain, Chest pain, Nicotine dependence, Constipation Disposition: HOME SELF-CARE Instructions (If sedation given, give patient instructions): Abdominal Pain (ED) Additional Instructions: Return to the emergency department with any new, worsening, or concerning symptoms. Take Tylenol as needed for pain relief and try [id number] MiraLAX for the constipation. Follow up with your primary care provider in 1-2 days. Is patient prescribed a controlled substance at d/c from ED?: No Referrals: None,Stated [Primary Care Provider] - 1-2 days Time of Disposition: 07:55
[2024-09-27 07:03] LABS: Basophils % (A) 0 %; Eosinophils # (A) 0.3 k/uL (0-0.7); Eosinophils % (A) 4 %; HCT 48.8 % (39.0-53.0); HGB 16.2 gm/dL (13.0-17.5); Lymphocytes # (A) 1.1 k/uL (1.0-4.8); Lymphocytes % (A) 16 %; MCH 28.4 pg (25.0-35.0); MCHC 33.2 g/dL (31.0-37.0); MCV 85.6 fL (80.0-100.0); Mean Platelet Volume 7.7; Monocytes # (A) 0.4 k/uL (0-1.0); Monocytes % (A) 6 %; Neutrophils % (A) 73 %; Platelet Count 187 k/uL (150-450); RDW 14.3 % (11.5-15.5); WBC 6.8 k/uL (3.8-10.6)
[2024-09-27 07:19] LABS: ALT 35 U/L (4-49); AST 23 U/L (17-59); African American GFR (CKD) >90 (>60 ml/min/1.73 sqM); Alkaline Phosphatase 85 U/L (38-126); Anion Gap 9 mmol/L; Blood Urea Nitrogen 22 mg/dL (9-20); Calcium 9.3 mg/dL (8.4-10.2); Carbon Dioxide 26 mmol/L (22-30); Chloride 106 mmol/L (98-107); Glucose 141 mg/dL (74-99); Lipase 106 U/L (23-300); Non-African American GFR(CKD) >90 (>60 ml/min/1.73 sqM); Potassium 4.3 mmol/L (3.5-5.1); Sodium 141 mmol/L (137-145); Total Bilirubin 0.5 mg/dL (0.2-1.3); Total Protein 6.2 g/dL (6.3-8.2)
[2024-09-27] MEDS: SODIUM CHLORIDE 0.9% 1,000 ML IV ONE (07:23)
[2024-09-27] MEDS: KETOROLAC 15 MG/ML 1 ML VIAL IVP STA (07:24)
[2024-09-27] MEDS: PANTOPRAZOLE 40 MG/10 ML VIAL IVP STA (07:26)
[2024-09-27 07:32] LABS: Appearance,Urine Clear (Clear); Bilirubin,Urine Negative (Negative); Blood,Urine Negative (Negative); Color,Urine Light Yellow; Glucose,Urine (UA) 4+ (Negative); Ketones,Urine Negative (Negative); Leukocyte Esterase,Urine Negative (Negative); Nitrite,Urine Negative (Negative); Protein,Urine Negative (Negative); Specific Gravity,Urine 1.035 (1.001-1.035); Urobilinogen,Urine <2.0 mg/dL (<2.0)
[2024-09-27 07:34] VITALS: BP 110/78
--- NOTE | 2024-09-27 07:46 | XR ---
EXAMINATION TYPE: XR chest 2V DATE OF EXAM: 09/27/2024 7:37 AM COMPARISON: 03/30/2024 CLINICAL INDICATION: Male, 54 years old with history of Chest pain, , TECHNIQUE: PA and lateral views FINDINGS: The cardiomediastinal silhouette, aorta, and pulmonary vasculature are within normal limits. Lungs an d pleural spaces are clear. IMPRESSION: No acute cardiopulmonary process. [facility], , 09/27/2024 7:44 AM
--- NOTE | 2024-09-27 07:54 | XR ---
EXAMINATION TYPE: XR KUB DATE OF EXAM: 09/27/2024 7:37 AM COMPARISON: 02/19/2024 CLINICAL INDICATION: Male, 54 years old with history of Abdominal pain; PHH, pain TECHNIQUE: One radiographic view of the abdomen was obtained. 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 Moderate stool burden. No dilated small bowel or differential air-fluid levels. No evidence for free intraperitoneal air. Lung bases are clear. Surgical clips, likely prostatectomy clips low in the midline pelvis. A calcification low left side o f the pelvis likely phlebolith. IMPRESSION: Moderate stool burden. Nonobstructive bowel gas pattern. No free air. [facility], , 09/27/2024 7:51 AM
[2024-09-27 08:00] VITALS: PULSE 61; RESP 16; TEMP 97.4
[2024-09-27] MEDS: ONDANSETRON 4 MG/2 ML VIAL IVP STA (08:04)
[2024-09-27] MEDS: ONDANSETRON 4 MG ODT STARTER PACK 2 TAB BTL PO STA (08:05)
== END 2024-09-27 08:26 | disposition home or self-care (01) ==
LOC: EC 05:42
DX: K59.00 Constipation, unspecified (principal); R07.9 Chest pain, unspecified; E11.9 Type 2 diabetes mellitus without complications; F17.200 Nicotine dependence, unspecified, uncomplicated; Z88.0 Allergy status to penicillin; Z91.048 Other nonmedicinal substance allergy status; Z88.1 Allergy status to other antibiotic agents; Z88.2 Allergy status to sulfonamides; Z88.8 Allergy status to other drugs, medicaments and biological substances
CPT/HCPCS: 36415; 93005; 80053; 83690; 84484; 85025; 81003; 71046; 74018; 99284; 96374; 96375 ×2; 96361; 99406; J2405; J1885; S0119; J2470

== ENCOUNTER 2024-09-29 20:05 | Emergency (ER) | payer OTHER ==
--- NOTE | 2024-09-29 21:47 | XR ---
EXAMINATION TYPE: XR shoulder limited RT DATE OF EXAM: 09/29/2024 9:42 PM COMPARISON: 03/20/2023 CLINICAL INDICATION: Male, 54 years old with history of pain, Pain TECHNIQUE: XR shoulder limited RT 2 view(s) obtained. FINDINGS: The humeral head articulates with the glenoid. The acromio-clavicular junction is normal. No acute fractures or dislocations are evident. A follow up study can be performed 7-10 days from acute trauma for continued pain. MRI can be perfor med if soft tissue evaluation would be of benefit. IMPRESSION: 1. No acute osseous shoulder abnormality. [facility], , 09/29/2024 9:45 PM
[2024-09-29] MEDS: ACETAMINOPHEN TAB 500 MG TAB PO STA (22:48)
[2024-09-29] MEDS: IBUPROFEN 800 MG TAB PO STA (22:49)
--- NOTE | 2024-09-29 23:42 | ED ---
General Adult HPI - General Chief complaint: Psychiatric Symptoms Stated complaint: SI Time Seen by Provider: 09/29/24 21:30 Source: patient, police, RN notes reviewed, old records reviewed Mode of arrival: ambulatory Limitations: no limitations - History of Present Illness Initial comments: Patient is a 54-year-old male well-known to our emergency department who presents after being petitioned for suicidal ideations. Patient was petition by police. He endorses generalized suicidal ideations. No actual attempt. No homicidal ideations, times, plans. Does endorse acute on chronic right shoulder pain as well. No other acute symptoms. Presents for further evaluation. - Related Data Home Medications Medication Instructions Recorded Confirmed Insulin Lispro [humaLOG Kwikpen] 100 units SQ DAILY 08/23/24 08/23/24 Previous Rx's Medication Instructions Recorded Aspirin EC [Ecotrin Low Dose] 81 mg PO DAILY 30 Days #30 tab 07/13/24 Atorvastatin [Lipitor] 10 mg PO HS 30 Days #30 tab 07/13/24 Nicotine 21Mg/24Hr Patch [Habitrol] 1 patch TRANSDERM DAILY 14 Days 07/13/24 #14 patch Pantoprazole [Protonix] 40 mg PO DAILY 30 Days #30 tab 07/13/24 Budesonide/Formoterol Fumarate 2 puff INHALATION RT-BID 30 Days 08/15/24 [Symbicort 80-4.5 Mcg Inhaler] #1 each ARIPiprazole [Abilify] 15 mg PO DAILY 30 Days #30 tab 09/19/24 Aspirin 81 mg PO DAILY 30 Days #30 tab 09/19/24 Atorvastatin [Lipitor] 10 mg PO HS 30 Days #30 tab 09/19/24 Dapagliflozin Propanediol [Farxiga] 10 mg PO DAILY 30 Days #30 tab 09/19/24 INSULIN LISPRO (HumaLOG) [HumaLOG] 0 unit SQ ACHS each 09/19/24 Nicotine 14Mg/24Hr Patch [Habitrol] 1 patch TRANSDERM DAILY patch 09/19/24 Pantoprazole [Protonix] 40 mg PO AC-BRKFST 30 Days #30 tab 09/19/24 Sertraline [Zoloft] 100 mg PO DAILY 30 Days #30 tab 09/19/24 busPIRone HCl [Buspar] 5 mg PO BID 30 Days #60 tab 09/19/24 traZODone HCL [Desyrel] 100 mg PO HS 30 Days #60 tab 09/19/24 Allergies Allergy/AdvReac Type Severity Reaction Status Date / Time dicyclomine HCl [From Bentyl] Allergy Unknown Dyspnea Verified 09/29/24 20:47 latex Allergy Unknown Rash/Hives Verified 09/29/24 20:47 Benzoate Analogues Allergy Unknown Verified 09/29/24 20:47 nitrofurantoin Allergy Nausea Verified 09/29/24 20:47 [From Macrobid] Penicillins Allergy "[place] Verified 09/29/24 20:47 funny" adhesive AdvReac Unknown Itching Verified 09/29/24 20:47 ciprofloxacin AdvReac Unknown Nausea Verified 09/29/24 20:47 Macrolide Antibiotics AdvReac Unknown Nausea Verified 09/29/24 20:47 sulfamethoxazole AdvReac Unknown Unknown Verified 09/29/24 20:47 [From Bactrim] trimethoprim [From Bactrim] AdvReac Unknown Unknown Verified 09/29/24 20:47 diphenhydramine AdvReac Confusion Verified 09/29/24 20:47 [From Benadryl] Review of Systems ROS Statement: Those systems with pertinent positive or pertinent negative responses have been documented in the HPI. Review of Systems: CONST: Denies fever EYES: Denies blurry vision ENT: Denies nasal congestion C/V: Denies Chest pain RESP: Denies shortness of breath GI: Denies abdominal pain : Denies dysuria SKIN: Denies rash. MSK: Endorses right shoulder. NEURO: Denies headache ROS Other: All systems not noted in ROS Statement are negative. Past Medical History Past Medical History: Asthma, Chest Pain / Angina, COPD, CVA/TIA, Diabetes Mellitus, GERD/Reflux, Hearing Disorder / Deafness, Hyperlipidemia, Hypertension, Liver Disease, Osteoarthritis (OA), Pneumonia, Seizure Disorder, Sleep Apnea/CPAP/BIPAP Additional Past Medical History / Comment(s): states CVA at 35 yrs old, no weakness @ this time. states seizure at 35 yrs old., DDD- back & neck pain., carpal tunnel syndrome. Has [employer] [facility] public guardian. History of Any Multi-Drug Resistant Organisms: Other MDRO Past Surgical History: Heart Catheterization, Orthopedic Surgery Additional Past Surgical History / Comment(s): Cysts removed, left thumb surgery, colonoscopy 08/24/2019. Skin tags removed from both eyes. Past Anesthesia/Blood Transfusion Reactions: Motion Sickness, Postoperative Nausea & Vomiting (PONV) Past Psychological History: Anxiety, Bipolar, Depression Smoking Status: Current every day smoker Past Alcohol Use History: Abuse Past Drug Use History: None Reported - Past Family History Brother(s) Family Medical History: Diabetes Mellitus Additional Family Medical History / Comment(s): Patient has 2 brothers. One from complications from diabetes. The second is alive with diabetes. Sister(s) Family Medical History: Cancer Additional Family Medical History / Comment(s): Patient has one sister with breast cancer. Patient does not have any children. Father Family Medical History: Cancer Additional Family Medical History / Comment(s): Father in his 40s or 50s from colon cancer. Mother Family Medical History: Cancer Additional Family Medical History / Comment(s): Mother at age 68 from lung cancer. General Exam - General Exam Comments Initial Comments: General: Appears in no acute distress. HEAD: Normal with no signs of head trauma. EYES: EOMI. ENT: Hearing grossly intact. RESPIRATORY: No respiratory distress. C/V: Regular rate and rhythm. ABD: Abdomen is nondistended. EXT: No obvious deformity. SKIN: No rashes or lesions observed on exposed skin. NEURO: Alert and oriented. Limitations: no limitations Course Vital Signs 09/29/24 20:46 Temperature 98 F Pulse Rate 65 Respiratory 18 Rate Blood Pressure 126/83 O2 Sat by Pulse 98 Oximetry Medical Decision Making - Medical Decision Making Was pt. sent in by a medical professional or institution (, PA, RN ANTE PARTUM, urgent care, hospital, or skilled nursing...) When possible be specific @ -No Did you speak to anyone other than the patient for history (EMS, parent, family, police, friend...)? What history was obtained from this source @ -No Did you review nursing and triage notes (agree or disagree)? Why? @ -I reviewed and agree with nursing and triage notes Were old charts reviewed (outside hosp., previous admission, EMS record, old EKG, old radiological studies, urgent care reports/EKG's, skilled nursing records)? Report findings @ -Blood chart reviewed showing that patient recently had blood work done less than 2 days ago which was unremarkable. Differential Diagnosis (chest pain, altered mental status, abdominal pain women, abdominal pain men, vaginal bleeding, weakness, fever, dyspnea, syncope, headache, dizziness, GI bleed, back pain, seizure, CVA, palpatations, mental health, musculoskeletal)? @ -Differential Mental Health Depression, anxiety, bipolar, psychosis, schizophrenia, borderline personality, situational depression, adjustment disorder, behavioral disorder, brain tumor, malingering, substance abuse, encephalopathy, medication reaction, dementia, hypothyroidism, degenerative neurologic disorder, lupus.... This is not meant to be all-inclusive list EKG interpreted by me (3pts min.). @ -As above X-rays interpreted by me (1pt min.). @ -Right shoulder x-ray negative for any obvious acute process or injury. CT interpreted by me (1pt min.). @ -None done U/S interpreted by me (1pt. min.). @ -None done What testing was considered but not performed or refused? (CT, X-rays, U/S, labs)? Why? @ -None What meds were considered but not given or refused? Why? @ -None Did you discuss the management of the patient with other professionals (professionals i.e. , PA, RN [employer], lab, RT, psych nurse, social insurance adviser, hydrotherapist, teacher, aoc director combat operations officer, family caseworker)? Give summary @ -[facility] notified of the consult. Patient does have a diversion order in place for when he does present for psychiatric evaluation however he is petitioned. Therefore [facility] will work on figuring out if they need to do a formal evaluation. Did decide after to speak with psychiatry that the diversion order is still in place. Patient will be discharged home with safety plan. Was smoking cessation discussed for >3mins.? @ -No Was critical care preformed (if so, how long)? @ -No Were there social determinants of health that impacted care today? How? (Homelessness, low income, unemployed, alcoholism, drug addiction, transportation, low edu. Level, literacy, decrease access to med. care, long term, rehab)? @ -No Was there de-escalation of care discussed even if they declined (Discuss DNR or withdrawal of care, Hospice)? DNR status @ -No What co-morbidities impacted this encounter? (DM, HTN, Smoking, COPD, CAD, Cancer, CVA, ARF, Chemo, Hep., AIDS, mental health diagnosis, sleep apnea, morbid obesity)? @ -Psychiatric history Was patient admitted / discharged? Hospital course, mention meds given and route, prescriptions, significant lab abnormalities, going to OR and other pertinent info. @ -Patient presents emergency department for suicidal ideations and was petiti on by police. Patient does have a diversion plan in place. BAT is 0. UDS is pending. I did order screening EKG which was unremarkable as well as a right shoulder x-ray due to pain which was unremarkable. Due to his age I did consider obtaining labs however any recent laboratory studies done 2 days ago. Patient does have a diversion order in place with [facility]. They still spoke with the patient and then with psychiatry regarding the patient and the diversion orders still in place. Patient will be instructed to follow-up with outpatient mobile crisis unit or [facility]. Patient is medically and psychiatrically cleared for discharge. He does not meet inpatient psychiatric criteria. I instructed the patient to follow up with their PCP in the next 1-3 days. I explained that the patient should return to the emergency department if they experience any worsening symptoms. Strict return precautions were discussed with the patient. The patient expressed understanding of these instructions. I an swered all questions that the patient had. The patient was discharged home in good condition with their prescriptions and follow up information. Undiagnosed new problem with uncertain prognosis? @ -No Drug Therapy requiring intensive monitoring for toxicity (Heparin, Nitro, Insulin, Cardizem)? @ -No Were any procedures done? @ -No Diagnosis/symptom? @ -Encounter for psychiatric evaluation, right shoulder pain Acute, or Chronic, or Acute on Chronic? @ -Acute on chronic Uncomplicated (without systemic symptoms) or Complicated (systemic symptoms)? @ -Uncomplicated Side effects of treatment? @ -No Exacerbation, Progression, or Severe Exacerbation? @ -No Poses a threat to life or bodily function? How? (Chest pain, USA, [place], pneumonia, PE, COPD, DKA, ARF, appy, cholecystitis, CVA, Diverticulitis, Homicidal, Suicidal, threat to staff... and all critical care pts) @ -Unlikely at this time - EKG Data -: EKG Interpreted by Me EKG Comments: 12-lead Electrocardiogram Interpretation Note EKG was reviewed and interpreted by myself. 12-lead ECG performed at 2153 is interpreted by me as revealing normal sinus rhythm at a rate of 60 beats per minute. [place] is normal. CT interval is 160 ms, QRS duration is 106 ms, QTc is 430 ms.. There were no ST or T wave abnormalities to suggest myocardial ische david or injury. R wave progression across the precordium was satisfactory. By my interpretation this EKG is non-diagnostic for acute ischemia. Disposition Clinical Impression: Encounter for psychiatric assessment, Right shoulder pain Disposition: HOME SELF-CARE Condition: Good Additional Instructions: Follow-up with mobile crisis unit. Is patient prescribed a controlled substance at d/c from ED?: No Referrals: None,Stated [Primary Care Provider] - 1-2 days Time of Disposition: 23:40
[2024-09-30 01:13] VITALS: BP 118/77; PULSE 52; RESP 20; TEMP 97.9
== END 2024-09-30 01:12 | disposition home or self-care (01) ==
LOC: EC 20:05
DX: M25.511 Pain in right shoulder (principal); F17.200 Nicotine dependence, unspecified, uncomplicated; Z00.8 Encounter for other general examination; Z91.040 Latex allergy status; Z88.0 Allergy status to penicillin; Z91.048 Other nonmedicinal substance allergy status; Z88.1 Allergy status to other antibiotic agents; Z88.8 Allergy status to other drugs, medicaments and biological substances
CPT/HCPCS: 82075; 93005; 99285

== ENCOUNTER 2024-09-30 12:08 | Emergency (ER) | payer OTHER ==
[2024-09-30 12:15] VITALS: TEMP 98.6
--- NOTE | 2024-09-30 12:27 | ED ---
Psych HPI - General Chief Complaint: Psychiatric Symptoms Stated Complaint: mental health Time Seen by Provider: 09/30/24 12:12 Source: patient, RN notes reviewed Mode of arrival: ambulatory Limitations: no limitations - History of Present Illness Initial Comments: 54-year-old male presents emergency department with chief complaint of depression, suicide ideation. Patient was dropped off by police from PCPs office. Patient states that he is upset about his family. He denies any current alcohol or drug use. Denies any physical complaints other than his normal issues. Patient denies any other associated symptoms. - Related Data Home Medications Medication Instructions Recorded Confirmed Insulin Lispro [humaLOG Kwikpen] 100 units SQ DAILY 08/23/24 08/23/24 Previous Rx's Medication Instructions Recorded Aspirin EC [Ecotrin Low Dose] 81 mg PO DAILY 30 Days #30 tab 07/13/24 Atorvastatin [Lipitor] 10 mg PO HS 30 Days #30 tab 07/13/24 Nicotine 21Mg/24Hr Patch [Habitrol] 1 patch TRANSDERM DAILY 14 Days 07/13/24 #14 patch Pantoprazole [Protonix] 40 mg PO DAILY 30 Days #30 tab 07/13/24 Budesonide/Formoterol Fumarate 2 puff INHALATION RT-BID 30 Days 08/15/24 [Symbicort 80-4.5 Mcg Inhaler] #1 each ARIPiprazole [Abilify] 15 mg PO DAILY 30 Days #30 tab 09/19/24 Aspirin 81 mg PO DAILY 30 Days #30 tab 09/19/24 Atorvastatin [Lipitor] 10 mg PO HS 30 Days #30 tab 09/19/24 Dapagliflozin Propanediol [Farxiga] 10 mg PO DAILY 30 Days #30 tab 09/19/24 INSULIN LISPRO (HumaLOG) [HumaLOG] 0 unit SQ ACHS each 09/19/24 Nicotine 14Mg/24Hr Patch [Habitrol] 1 patch TRANSDERM DAILY patch 09/19/24 Pantoprazole [Protonix] 40 mg PO AC-BRKFST 30 Days #30 tab 09/19/24 Sertraline [Zoloft] 100 mg PO DAILY 30 Days #30 tab 09/19/24 busPIRone HCl [Buspar] 5 mg PO BID 30 Days #60 tab 09/19/24 traZODone HCL [Desyrel] 100 mg PO HS 30 Days #60 tab 09/19/24 Allergies Allergy/AdvReac Type Severity Reaction Status Date / Time dicyclomine HCl [From Bentyl] Allergy Unknown Dyspnea Verified 09/30/24 12:15 latex Allergy Unknown Rash/Hives Verified 09/30/24 12:15 Benzoate Analogues Allergy Unknown Verified 09/30/24 12:15 nitrofurantoin Allergy Nausea Verified 09/30/24 12:15 [From Macrobid] Penicillins Allergy "[place] Verified 09/30/24 12:15 funny" adhesive AdvReac Unknown Itching Verified 09/30/24 12:15 ciprofloxacin AdvReac Unknown Nausea Verified 09/30/24 12:15 Macrolide Antibiotics AdvReac Unknown Nausea Verified 09/30/24 12:15 sulfamethoxazole AdvReac Unknown Unknown Verified 09/30/24 12:15 [From Bactrim] trimethoprim [From Bactrim] AdvReac Unknown Unknown Verified 09/30/24 12:15 diphenhydramine AdvReac Confusion Verified 09/30/24 12:15 [From Benadryl] Review of Systems ROS Statement: Those systems with pertinent positive or pertinent negative responses have been documented in the HPI. ROS Other: All systems not noted in ROS Statement are negative. Past Medical History Past Medical History: Asthma, Chest Pain / Angina, COPD, CVA/TIA, Diabetes Mellitus, GERD/Reflux, Hearing Disorder / Deafness, Hyperlipidemia, Hypertension, Liver Disease, Osteoarthritis (OA), Pneumonia, Seizure Disorder, Sleep Apnea/CPAP/BIPAP Additional Past Medical History / Comment(s): states CVA at 35 yrs old, no weakness @ this time. states seizure at 35 yrs old., DDD- back & neck pain., carpal tunnel syndrome. Has [facility] public guardian. History of Any Multi-Drug Resistant Organisms: Other MDRO Past Surgical History: Heart Catheterization, Orthopedic Surgery Additional Past Surgical History / Comment(s): Cysts removed, left thumb surgery, colonoscopy 08/24/2019. Skin tags removed from both eyes. Past Anesthesia/Blood Transfusion Reactions: Motion Sickness, Postoperative Nausea & Vomiting (PONV) Past Psychological History: Anxiety, Bipolar, Depression Smoking Status: Current every day smoker Past Alcohol Use History: Abuse Past Drug Use History: None Reported - Past Family History Brother(s) Family Medical History: Diabetes Mellitus Additional Family Medical History / Comment(s): Patient has 2 brothers. One from complications from diabetes. The second is alive with diabetes. Sister(s) Family Medical History: Cancer Additional Family Medical History / Comment(s): Patient has one sister with breast cancer. Patient does not have any children. Father Family Medical History: Cancer Additional Family Medical History / Comment(s): Father in his 40s or 50s from colon cancer. Mother Family Medical History: Cancer Additional Family Medical History / Comment(s): Mother at age 68 from lung cancer. General Exam Limitations: no limitations General appearance: alert, in no apparent distress Head exam: Present: atraumatic, normocephalic, normal inspection Eye exam: Present: normal appearance, PERRL, EOMI. Absent: scleral icterus, conjunctival injection, periorbital swelling ENT exam: Present: normal exam, normal oropharynx, mucous membranes moist Neck exam: Present: normal inspection, full ROM. Absent: tenderness, meningismus, lymphadenopathy Respiratory exam: Present: normal lung sounds bilaterally. Absent: respiratory distress, wheezes, rales, rhonchi, stridor Cardiovascular Exam: Present: regular rate, normal rhythm, normal heart sounds. Absent: systolic murmur, diastolic murmur, rubs, gallop, clicks Neurological exam: Present: alert, oriented X3, reflexes normal. Absent: motor sensory deficit Psychiatric exam: Present: depressed, flat affect Skin exam: Present: warm, dry, intact, normal color. Absent: rash Course Vital Signs 09/30/24 12:12 Temperature 98.6 F Pulse Rate 65 Respiratory 20 Rate Blood Pressure 128/82 O2 Sat by Pulse 99 Oximetry Medical Decision Making - Medical Decision Making Was pt. sent in by a medical professional or institution (, PA, LOADING MANAGER, urgent care, hospital, or long term...) When possible be specific @ -PCP Did you speak to anyone other than the patient for history (EMS, parent, family, police, friend...)? What history was obtained from this source @ -No Did you review nursing and triage notes (agree or disagree)? Why? @ -I reviewed and agree with nursing and triage notes Were old charts reviewed (outside hosp., previous admission, EMS record, old EKG, old radiological studies, urgent care reports/EKG's, long term records)? Report findings @ -No old charts were reviewed Differential Diagnosis (chest pain, altered mental status, abdominal pain women, abdominal pain men, vaginal bleeding, weakness, fever, dyspnea, syncope, headache, dizziness, GI bleed, back pain, seizure, CVA, palpatations, mental health, musculoskeletal)? @ -Differential Mental Health Depression, anxiety, bipolar, psychosis, schizophrenia, borderline personality, situational depression, adjustment disorder, behavioral disorder, brain tumor, malingering, substance abuse, encephalopathy, medication reaction, dementia, hypothyroidism, degenerative neurologic disorder, lupus.... This is not meant to be all-inclusive list EKG interpreted by me (3pts min.). @ -[None X-rays interpreted by me (1pt min.). @ -None done CT interpreted by me (1pt min.). @ -None done U/S interpreted by me (1pt. min.). @ -None done What testing was considered but not performed or refused? (CT, X-rays, U/S, labs)? Why? @ -None What meds were considered but not given or refused? Why? @ -None Did you discuss the management of the patient with other professionals (professionals i.e. , PA, LOADING MANAGER, lab, RT, psych nurse, certified social workers in health care, hat lacer, teacher, chief digital media officer, director of casework department)? Give summary @ -EPS who came to evaluate the patient. Patient has safety plan, diversion plan in place in which patient will follow this plan and be discharged. Was smoking cessation discussed for >3mins.? @ -No Was critical care preformed (if so, how long)? @ -No Were there social determinants of health that impacted care today? How? (Homelessness, low income, unemployed, alcoholism, drug addiction, transportation, low edu. Level, literacy, decrease access to med. care, fci, rehab)? @ -No Was there de-escalation of care discussed even if they declined (Discuss DNR or withdrawal of care, Hospice)? DNR status @ -No What co-morbidities impacted this encounter? (DM, HTN, Smoking, COPD, CAD, Cancer, CVA, ARF, Chemo, Hep., AIDS, mental health diagnosis, sleep apnea, morbid obesity)? @ -None Was patient admitted / discharged? Hospital course, mention meds given and route, prescriptions, significant lab abnormalities, going to OR and other pertinent info. @ -Discharge patient was evaluated APS for safety plan and diversion plan patient discharged in stable condition. Undiagnosed new problem with uncertain prognosis? @ -No Drug Therapy requiring intensive monitoring for toxicity (Heparin, Nitro, Insulin, Cardizem)? @ -No Were any procedures done? @ -No Diagnosis/symptom? @ -Depression Acute, or Chronic, or Acute on Chronic? @ -Acute Uncomplicated (without systemic symptoms) or Complicated (systemic symptoms)? @ -Uncomplicated Side effects of treatment? @ -No Exacerbation, Progression, or Severe Exacerbation? @ -No Poses a threat to life or bodily function? How? (Chest pain, [place], [place], pneumonia, PE, COPD, DKA, ARF, appy, cholecystitis, CVA, Diverticulitis, Homicidal, Suicidal, threat to staff... and all critical care pts) @ -No Disposition Clinical Impression: Depression Disposition: HOME SELF-CARE Condition: Stable Instructions (If sedation given, give patient instructions): Depression (ED) Additional Instructions: Please return to the Emergency Department if symptoms worsen or any other concerns. Is patient prescribed a controlled substance at d/c from ED?: No Referrals: Bryan Martinez MD [Primary Care Provider] - 1-2 days Time of Disposition: 12:34
[2024-09-30 12:41] VITALS: BP 149/91; PULSE 60; RESP 18
[2024-09-30 12:54] LABS: Amphetamine Screen,Urine Not Detected (NotDetected); Barbiturate Screen,Urine Not Detected (NotDetected); Benzodiazepines Screen,Urine Not Detected (NotDetected); Cocaine Screen,Urine Not Detected (NotDetected); Methadone Screen, Urine Not Detected (NotDetected); Opiate Screen,Urine Not Detected (NotDetected); Oxycodone Screen, Urine Not Detected (NotDetected); Phencyclidine Screen,Urine Not Detected (NotDetected); Tricyclic Antidepressant,Urine Not Detected (NotDetected); Urn Cannabinoid Scrn Not Detected (NotDetected)
== END 2024-09-30 12:49 | disposition home or self-care (01) ==
LOC: EC 12:08 → EEVIPCON 12:08 → EC 12:49
DX: F32.A Depression, unspecified (principal); F17.200 Nicotine dependence, unspecified, uncomplicated; Z88.0 Allergy status to penicillin; Z88.1 Allergy status to other antibiotic agents; Z88.2 Allergy status to sulfonamides; Z91.09 Other allergy status, other than to drugs and biological substances; Z91.040 Latex allergy status; Z88.8 Allergy status to other drugs, medicaments and biological substances
CPT/HCPCS: 80306; 82075; 87635; 99285

== ENCOUNTER 2024-09-30 13:04 | Inpatient (IN) | payer OTHER, MEDICAID ==
--- NOTE | 2024-09-30 13:36 | ED ---
Psych HPI - General Chief Complaint: Psychiatric Symptoms Stated Complaint: mental health Time Seen by Provider: 09/30/24 13:05 Source: patient, RN notes reviewed Mode of arrival: ambulatory Limitations: no limitations - History of Present Illness Initial Comments: 54-year-old male presents emergency department for psychiatric evaluation. Patient states he is depressed, suicidal. Patient states that he was sent over by his PCP. Patient denies any current drug or alcohol abuse denies any physical complaints - Related Data Home Medications Medication Instructions Recorded Confirmed Insulin Lispro [humaLOG Kwikpen] 100 units SQ DAILY 08/23/24 08/23/24 Previous Rx's Medication Instructions Recorded Aspirin EC [Ecotrin Low Dose] 81 mg PO DAILY 30 Days #30 tab 07/13/24 Atorvastatin [Lipitor] 10 mg PO HS 30 Days #30 tab 07/13/24 Nicotine 21Mg/24Hr Patch [Habitrol] 1 patch TRANSDERM DAILY 14 Days 07/13/24 #14 patch Pantoprazole [Protonix] 40 mg PO DAILY 30 Days #30 tab 07/13/24 Budesonide/Formoterol Fumarate 2 puff INHALATION RT-BID 30 Days 08/15/24 [Symbicort 80-4.5 Mcg Inhaler] #1 each ARIPiprazole [Abilify] 15 mg PO DAILY 30 Days #30 tab 09/19/24 Aspirin 81 mg PO DAILY 30 Days #30 tab 09/19/24 Atorvastatin [Lipitor] 10 mg PO HS 30 Days #30 tab 09/19/24 Dapagliflozin Propanediol [Farxiga] 10 mg PO DAILY 30 Days #30 tab 09/19/24 INSULIN LISPRO (HumaLOG) [HumaLOG] 0 unit SQ ACHS each 09/19/24 Nicotine 14Mg/24Hr Patch [Habitrol] 1 patch TRANSDERM DAILY patch 09/19/24 Pantoprazole [Protonix] 40 mg PO AC-BRKFST 30 Days #30 tab 09/19/24 Sertraline [Zoloft] 100 mg PO DAILY 30 Days #30 tab 09/19/24 busPIRone HCl [Buspar] 5 mg PO BID 30 Days #60 tab 09/19/24 traZODone HCL [Desyrel] 100 mg PO HS 30 Days #60 tab 09/19/24 Allergies Allergy/AdvReac Type Severity Reaction Status Date / Time dicyclomine HCl [From Bentyl] Allergy Unknown Dyspnea Verified 09/30/24 13:18 latex Allergy Unknown Rash/Hives Verified 09/30/24 13:18 Benzoate Analogues Allergy Unknown Verified 09/30/24 13:18 nitrofurantoin Allergy Nausea Verified 09/30/24 13:18 [From Macrobid] Penicillins Allergy "[place] Verified 09/30/24 13:18 funny" adhesive AdvReac Unknown Itching Verified 09/30/24 13:18 ciprofloxacin AdvReac Unknown Nausea Verified 09/30/24 13:18 Macrolide Antibiotics AdvReac Unknown Nausea Verified 09/30/24 13:18 sulfamethoxazole AdvReac Unknown Unknown Verified 09/30/24 13:18 [From Bactrim] trimethoprim [From Bactrim] AdvReac Unknown Unknown Verified 09/30/24 13:18 diphenhydramine AdvReac Confusion Verified 09/30/24 13:18 [From Benadryl] Review of Systems ROS Statement: Those systems with pertinent positive or pertinent negative responses have been documented in the HPI. ROS Other: All systems not noted in ROS Statement are negative. Past Medical History Past Medical History: Asthma, Chest Pain / Angina, COPD, CVA/TIA, Diabetes Mellitus, GERD/Reflux, Hearing Disorder / Deafness, Hyperlipidemia, Hypertension, Liver Disease, Osteoarthritis (OA), Pneumonia, Seizure Disorder, Sleep Apnea/CPAP/BIPAP Additional Past Medical History / Comment(s): states CVA at 35 yrs old, no weakness @ this time. states seizure at 35 yrs old., DDD- back & neck pain., carpal tunnel syndrome. Has [employer] public guardian. History of Any Multi-Drug Resistant Organisms: Other MDRO Past Surgical History: Heart Catheterization, Orthopedic Surgery Additional Past Surgical History / Comment(s): Cysts removed, left thumb surgery, colonoscopy 08/24/2019. Skin tags removed from both eyes. Past Anesthesia/Blood Transfusion Reactions: Motion Sickness, Postoperative Nausea & Vomiting (PONV) Past Psychological History: Anxiety, Bipolar, Depression Smoking Status: Current every day smoker Past Alcohol Use History: Abuse Past Drug Use History: None Reported - Past Family History Brother(s) Family Medical History: Diabetes Mellitus Additional Family Medical History / Comment(s): Patient has 2 brothers. One from complications from diabetes. The second is alive with diabetes. Sister(s) Family Medical History: Cancer Additional Family Medical History / Comment(s): Patient has one sister with breast cancer. Patient does not have any children. Father Family Medical History: Cancer Additional Family Medical History / Comment(s): Father in his 40s or 50s from colon cancer. Mother Family Medical History: Cancer Additional Family Medical History / Comment(s): Mother at age 68 from lung cancer. General Exam Limitations: no limitations General appearance: alert, in no apparent distress Head exam: Present: atraumatic, normocephalic, normal inspection Eye exam: Present: normal appearance, PERRL, EOMI. Absent: scleral icterus, conjunctival injection, periorbital swelling ENT exam: Present: normal exam, mucous membranes moist Neck exam: Present: normal inspection, full ROM. Absent: tenderness, meningismus, lymphadenopathy Respiratory exam: Present: normal lung sounds bilaterally. Absent: respiratory distress, wheezes, rales, rhonchi, stridor Cardiovascular Exam: Present: regular rate, normal rhythm, normal heart sounds. Absent: systolic murmur, diastolic murmur, rubs, gallop, clicks Psychiatric exam: Present: depressed, flat affect Course Vital Signs 09/30/24 13:14 Temperature 98.1 F Pulse Rate 68 Respiratory 18 Rate Blood Pressure 145/80 O2 Sat by Pulse 98 Oximetry Medical Decision Making - Medical Decision Making was pt. sent in by a medical professional or institution ([facility], SALES AND MARKETING EXECUTIVE, urgent care, hospital, or snf...) When possible be specific @ -[PCP, [facility] Did you speak to anyone other than the patient for history (EMS, parent, family, police, friend...)? What history was obtained from this source @ -No Did you review nursing and triage notes (agree or disagree)? Why? @ -I reviewed and agree with nursing and triage notes Were old charts reviewed (outside hosp., previous admission, EMS record, old EKG, old radiological studies, urgent care reports/EKG's, snf records)? Report findings @ -No old charts were reviewed Differential Diagnosis (chest pain, altered mental status, abdominal pain women, abdominal pain men, vaginal bleeding, weakness, fever, dyspnea, syncope, headache, dizziness, GI bleed, back pain, seizure, CVA, palpatations, mental health, musculoskeletal)? @ -Differential Mental Health Depression, anxiety, bipolar, psychosis, schizophrenia, borderline personality, situational depression, adjustment disorder, behavioral disorder, brain tumor, malingering, substance abuse, encephalopathy, medication reaction, dementia, hypothyroidism, degenerative neurologic disorder, lupus.... This is not meant to be all-inclusive list EKG interpreted by me (3pts min.). @ -None X-rays interpreted by me (1pt min.). @ -None done CT interpreted by me (1pt min.). @ -None done U/S interpreted by me (1pt. min.). @ -None done What testing was considered but not performed or refused? (CT, X-rays, U/S, labs)? Why? @ -None What meds were considered but not given or refused? Why? @ -None Did you discuss the management of the patient with other professionals (professionals i.e. , PA, SALES AND MARKETING EXECUTIVE, lab, RT, psych nurse, social welfare administrator, livestock farmers, teacher, real estate officer, case management coordinator)? Give summary @ -[EPS evaluated patient recommended inpatient treatment Was smoking cessation discussed for >3mins.? @ -No Was critical care preformed (if so, how long)? @ -No Were there social determinants of health that impacted care today? How? (Homelessness, low income, unemployed, alcoholism, drug addiction, transportation, low edu. Level, literacy, decrease access to med. care, correction, rehab)? @ -No Was there de-escalation of care discussed even if they declined (Discuss DNR or withdrawal of care, Hospice)? DNR status @ -No What co-morbidities impacted this encounter? (DM, HTN, Smoking, COPD, CAD, Cancer, CVA, ARF, Chemo, Hep., AIDS, mental health diagnosis, sleep apnea, morbid obesity)? @ -None Was patient admitted / discharged? Hospital course, mention meds given and route, prescriptions, significant lab abnormalities, going to OR and other pertinent info. @ -Admit to 3 W. Undiagnosed new problem with uncertain prognosis? @ -No Drug Therapy requiring intensive monitoring for toxicity (Heparin, Nitro, Insulin, Cardizem)? @ -No Were any procedures done? @ -No Diagnosis/symptom? @ -[Depression Acute, or Chronic, or Acute on Chronic? @ -Acute Uncomplicated (without systemic symptoms) or Complicated (systemic symptoms)? @ -Uncomplicated Side effects of treatment? @ -No Exacerbation, Progression, or Severe Exacerbation? @ -No Poses a threat to life or bodily function? How? (Chest pain, [place], [place], pneumonia, PE, COPD, DKA, ARF, appy, cholecystitis, CVA, Diverticulitis, Homicidal, Suicidal, threat to staff... and all critical care pts) @ -No Disposition Clinical Impression: Depression Disposition: TRANSFER TO PSYCH HOSP/UNIT Referrals: Bryan Martinez MD [Primary Care Provider] - 1-2 days Time of Disposition: 13:36
[2024-09-30] MEDS ORDERED: MAG HYDROX/AL HYDROX/SIMETH 355 ML BOTTLE PO PRN (14:33)
[2024-09-30] MEDS ORDERED: haloperidoL 5 MG TAB PO PRN (14:33)
[2024-09-30] MEDS ORDERED: HALOPERIDOL LACTATE 5 MG/ML 1 ML VIAL IM PRN (14:33)
[2024-09-30] MEDS ORDERED: LORazepam 2 MG/ML INJ IM PRN (14:33)
[2024-09-30] MEDS: NICOTINE 21MG/24HR PATCH TRANSDERM SCH (15:44)
[2024-09-30 17:51] LABS: Glucose,Whole Blood 179 mg/dL (70-110)
[2024-09-30] MEDS: INSULIN LISPRO (HumaLOG) 100 UNIT/ML 10 mL VL SQ SCH (17:51)
[2024-09-30 19:59] LABS: Glucose,Whole Blood 125 mg/dL (70-110)
[2024-09-30] MEDS: LORazepam 1 MG TAB PO PRN (20:04)
[2024-09-30] MEDS: ATORVASTATIN 10 MG TAB PO SCH (20:49)
[2024-09-30] MEDS: traZODone HCL 50 MG TAB PO SCH (20:49)
[2024-09-30] MEDS: busPIRone HCl 5 MG TAB PO SCH (20:49)
[2024-09-30] MEDS: SYMBICORT 80-4.5 MCG INHALER (MHU) INHALATION SCH (20:51)
[2024-10-01 07:52] LABS: Glucose,Whole Blood 160 mg/dL (70-110)
[2024-10-01] MEDS: PANTOPRAZOLE 40 MG TABLET PO SCH (07:56)
[2024-10-01] MEDS: ASPIRIN 81 MG PO SCH (08:53)
[2024-10-01] MEDS: ARIPiprazole 15 MG TAB PO SCH (08:53)
[2024-10-01] MEDS: DAPAGLIFLOZIN PROPANEDIOL 10 MG TABLET PO SCH (08:53)
[2024-10-01] MEDS: SERTRALINE 100 MG TAB PO SCH (08:54)
[2024-10-01] MEDS ORDERED: NON FORMULARY DRUG (Insulin Lispro [Humalog Kwikpen] 100 UNIT/ML Insuln.Pen) SQ SCH (09:00)
--- NOTE | 2024-10-01 11:15 | P.HP ---
Psychiatric H&P - . H&P Date: 10/01/24 History & Physical: Allergies Allergy/AdvReac Type Severity Reaction Status Date / Time dicyclomine HCl [From Bentyl] Allergy Unknown Dyspnea Verified 09/30/24 16:46 latex Allergy Unknown Rash/Hives Verified 09/30/24 16:46 Benzoate Analogues Allergy Unknown Verified 09/30/24 16:46 benzonatate Allergy Unknown Verified 09/30/24 16:46 nitrofurantoin Allergy Nausea Verified 09/30/24 16:46 [From Macrobid] Penicillins Allergy "[place] Verified 09/30/24 16:46 funny" adhesive AdvReac Unknown Itching Verified 09/30/24 16:46 ciprofloxacin AdvReac Unknown Nausea Verified 09/30/24 16:46 Macrolide Antibiotics AdvReac Unknown Nausea Verified 09/30/24 16:46 sulfamethoxazole AdvReac Unknown Unknown Verified 09/30/24 16:46 [From Bactrim] trimethoprim [From Bactrim] AdvReac Unknown Unknown Verified 09/30/24 16:46 diphenhydramine AdvReac Confusion Verified 09/30/24 16:46 [From Benadryl] Vital Signs Temp 97.4 F L 10/01/24 07:54 Pulse 58 L 10/01/24 07:54 Resp 18 09/30/24 21:00 BP 103/70 10/01/24 07:54 Pulse Ox 97 10/01/24 07:54 FiO2 Intake & Output 09/30/24 10/01/24 10/01/24 18:59 06:59 18:59 Weight 79.379 kg 75 kg Laboratory Last Values POC Glucose (mg/dL) 160 mg/dL (70-110) H 10/01/24 07:44 POC Glu Traveling Accountant ID [place] 10/01/24 07:44 10/01/24 10:50 IDENTIFYING DATA: Patient is a single, unemployed, 54-year-old male with a guardian who is presenting with suicidal ideation and depression to the ER. Patient has public guardian's HPI: Patient has a history of schizoaffective disorder generalized anxiety disorder and alcohol abuse, has been admitted to the psychiatric unit several times in the past, has been seen in the ER multiple times for psychiatric problems and alcohol issues. Patient was evaluated yesterday by EPS nurse and according to note "Patient checked back into ER regarding suicidal ideation with a plan to overdose. Patient given safety plan per his diversion plan at 1226. Patient contacted his PCP and [facility] to express that if he goes home he is going to kill himself. Patient states he is going to take all his pills because he feels like no one cares about him or if he . Patient states he is having auditory and visual hallucinations. States the hallucinations tell him to do bad things. Describes his visual hallucinations as "visions of people dying". Patient verbalizes feeling paranoid all the time. Patient states his symptoms have been worsening over the last 3 days. Patient states that he is compliant with his home medications and attending all his outpatient appointments as scheduled." Patient was admitted last night to the unit restarted back on his medications. He was agreeable to speak to copywriter in the office. He continues to state that he has been feeling suicidal, also was endorsing seeing "dark shadows". He claims that he called his guardian and also his doctor who told him to come back to the ER after attempting to be diverted. Patient states that for the last couple of days he has been feeling more depressed. Claims that she is having difficulty with his living situation and also states that his [id number] has been "in my business more and stressing me out". He claims that he has an increase in his stressors, leading to more drinking, he was vague about how much he is drinking at this time, minor withdrawal symptoms. Patient is catastrophizing, claims that his trigger is mainly his living situation. At this time he is denying any suicidal homicidal ideations intent or plan denying any auditory visual hallucinations. PSYCH HX: Patient has a history of schizoaffective disorder, depressed type, alcohol use disorder, in remission. Patient is currently on abilify 15 mg, zoloft 150 mg, and trazodone 100 mg. Patient is also taking BuSpar twice daily. He reports >50 inpatient hospitalizations, most recent here was august 2024. He follows with [facility]. He reports one prior suicide attempt via OD 3-4 years ago. PMH: Past Medical History: Asthma, Chest Pain / Angina, COPD, CVA/TIA, Diabetes Mellitus, GERD/Reflux, Hearing Disorder / Deafness, Hyperlipidemia, Hypertensio n, Liver Disease, Osteoarthritis (OA), Pneumonia, Seizure Disorder, Sleep Apnea/CPAP/BIPAP Additional Past Medical History / Comment(s): states CVA at 35 yrs old, no weakness @ this time. states seizure at 35 yrs old., DDD- back & neck pain., carpal tunnel syndrome. Has [employer] public guardian. History of Any Multi-Drug Resistant Organisms: Other MDRO Past Surgical History: Heart Catheterization, Orthopedic Surgery Additional Past Surgical History / Comment(s): Cysts removed, left thumb surgery, colonoscopy 08/24/2019. Skin tags removed from both eyes. Past Anesthesia/Blood Transfusion Reactions: Motion Sickness, Postoperative Nausea & Vomiting (PONV) Past Psychological History: Anxiety, Bipolar, Depression Smoking Status: Current every day smoker Past Alcohol Use History: Abuse Past Drug Use History: None Reported SUBSTANCE HX: He has a history of alcohol use disorder however now drinks occasionally. He smokes 2-3 cigs daily, denying any cannabis or other illicit drugs. SOCIAL/LEGAL HX: Patient is currently staying at [facility] home, living with one roommate. He has a public guardian. He does not have any children, never and completed high school up to 10th grade. He is on SSD. FAM PSYCH HX: Denies MENTAL STATUS EXAM: General Appearance: Patient appears to be stated age is alert, directable, and attempts to cooperate. Patient appears to have fair hygiene and grooming. Behavior: Patient is seated without any agitated behavior. Speech: Patient's speech is fluent and nonpressured. Mood/Affect: Patient reports their mood is depressed and anxious, affect is congruent and constricted. Suicidality/Homicidality: Patient denies having any homicidal ideation intent or plan. He denies any suicidal ideations, no plan Perceptions: Patient denies any visual hallucinations he is denying any current auditory hallucinations Though content/process: There is no evidence of any delusional thought content and thought process is linear. Memory and concentration: AOX3, grossly intact for the purposes of this session. Can spell "WORLD" backwards Judgment and insight: poor/limited STRENGTHS/WEAKNESSES: strength is that patient is resilient and has a public guardian. Weakness is that patient has poor judgment/insight and is impulsive INTELLECT: below average IMPRESSIONS: adjustment disorder Schizoaffective disorder, depressed type Generalized anxiety disorder Nicotine dependence Alcohol use disorder PLAN: -Patient is admitted under voluntary status to [facility] for stabilization of psychiatric symptoms and safety. Patient has signed adult voluntary form and medication consent and is placed in patient's chart. -Medications : Zoloft 100 mg daily for depression/anxiety, Abilify 15 mg daily for psychosis/mood stabilization, trazodone 100 mg at bedtime for insomnia. buspar 5 mg bid for anxiety. -Haldol PRN for agitation/aggression -Patient was counselled on substance abuse and desired to cut back on use. patient states that he is interested in rehab. -Patient was informed of the risks, benefits and side effects of the medication and patient verbally consented to taking the medications. Patient signed med consent form and was placed in chart. did not want any information on medications today -Internal Medicine consult to perform medical evaluation and physical. -NRT - nicotine patch -SW on board for discharge planning. Encourage patient to participate in groups to work on coping skills. Patient will need a better diversion plan as patient comes to the ER for similar complaints, will need to include [facility] and his guardians in this plan. 10/01/24 11:14
[2024-10-01 11:24] LABS: Basophils % (A) 0 %; Eosinophils # (A) 0.2 k/uL (0-0.7); Eosinophils % (A) 3 %; HCT 52.4 % (39.0-53.0); HGB 17.2 gm/dL (13.0-17.5); Lymphocytes # (A) 1.2 k/uL (1.0-4.8); Lymphocytes % (A) 16 %; MCH 28.4 pg (25.0-35.0); MCHC 32.8 g/dL (31.0-37.0); MCV 86.6 fL (80.0-100.0); Mean Platelet Volume 7.9; Monocytes # (A) 0.4 k/uL (0-1.0); Monocytes % (A) 5 %; Neutrophils # (A) 5.6 k/uL (1.3-7.7); Neutrophils % (A) 74 %; Platelet Count 203 k/uL (150-450); RBC 6.05 m/uL (4.30-5.90); RDW 14.5 % (11.5-15.5); WBC 7.5 k/uL (3.8-10.6)
[2024-10-01 11:25] LABS: ALT 35 U/L (4-49); AST 24 U/L (17-59); African American GFR (CKD) >90 (>60 ml/min/1.73 sqM); Albumin 4.3 g/dL (3.5-5.0); Alkaline Phosphatase 79 U/L (38-126); Anion Gap 9 mmol/L; Bilirubin, Delta 0.2 mg/dL (0.0-0.2); Bilirubin,Unconjugated 0.3 mg/dL (0.0-1.1); Blood Urea Nitrogen 15 mg/dL (9-20); Calcium 10.2 mg/dL (8.4-10.2); Carbon Dioxide 23 mmol/L (22-30); Chloride 107 mmol/L (98-107); Glucose 190 mg/dL (74-99); Non-African American GFR(CKD) >90 (>60 ml/min/1.73 sqM); Potassium 4.4 mmol/L (3.5-5.1); Sodium 139 mmol/L (137-145); Total Bilirubin 0.5 mg/dL (0.2-1.3); Total Protein 6.5 g/dL (6.3-8.2)
[2024-10-01 11:42] LABS: Appearance,Urine Clear (Clear); Bilirubin,Urine Negative (Negative); Blood,Urine Negative (Negative); Color,Urine Colorless; Glucose,Urine (UA) 4+ (Negative); Ketones,Urine Negative (Negative); Leukocyte Esterase,Urine Negative (Negative); Nitrite,Urine Negative (Negative); PH, Urine 5.5 (5.0-8.0); Protein,Urine Negative (Negative); Specific Gravity,Urine 1.033 (1.001-1.035); Urobilinogen,Urine <2.0 mg/dL (<2.0)
[2024-10-01 12:36] LABS: Glucose,Whole Blood 160 mg/dL (70-110)
[2024-10-01] MEDS: IBUPROFEN 600 MG TAB PO PRN (15:06)
[2024-10-01 17:43] LABS: Glucose,Whole Blood 146 mg/dL (70-110)
[2024-10-01 20:00] LABS: Glucose,Whole Blood 171 mg/dL (70-110)
[2024-10-01] MEDS: ACETAMINOPHEN TAB 325 MG TAB PO PRN (20:15)
[2024-10-02] MEDS: MAGNESIUM HYDROXIDE 2,400 MG/30 ML CUP PO PRN (02:57)
[2024-10-02] MEDS ORDERED: DOCUSATE 100 MG CAP PO PRN (05:47)
--- NOTE | 2024-10-02 06:08 | P.HPMEDMHU ---
History of Present Illness H&P Date: 10/01/24 Chief Complaint: chest pain The patient is a 54-year-old male who was hospitalized through the emergency room for suicidal ideations and depression. The patient is complaining of chest pain which she states is red sided and not related to any movement he is not short of breath not having any nausea or vomiting. The patient is also states that he has not been to the bathroom regularly he feels bloated. The patient is holding his chest wall while speaking. Review of Systems Negative other than as stated above Past Medical History Past Medical History: Asthma, Chest Pain / Angina, COPD, CVA/TIA, Diabetes Mellitus, GERD/Reflux, Hearing Disorder / Deafness, Hyperlipidemia, Hypertension, Liver Disease, Osteoarthritis (OA), Pneumonia, Seizure Disorder, Sleep Apnea/CPAP/BIPAP Additional Past Medical History / Comment(s): states CVA at 35 yrs old, no weakness @ this time. states seizure at 35 yrs old., DDD- back & neck pain., carpal tunnel syndrome. Has [facility] public guardian. History of Any Multi-Drug Resistant Organisms: Other MDRO Past Surgical History: Heart Catheterization, Orthopedic Surgery Additional Past Surgical History / Comment(s): Cysts removed, left thumb surgery, colonoscopy 08/24/2019. Skin tags removed from both eyes. Past Anesthesia/Blood Transfusion Reactions: Motion Sickness, Postoperative Nausea & Vomiting (PONV) Past Psychological History: Anxiety, Bipolar, Depression Additional Psychological History / Comment(s): Pt has a public legal guardian, lives in a BOARDING HOUSE. Goes to [employer]. Smoking Status: Current every day smoker Past Alcohol Use History: Abuse Additional Past Alcohol Use History / Comment(s): past abuse. States hasnt drank in "at least 4 weeks" Past Drug Use History: None Reported Additional Drug Use History / Comment(s): pt denies any recreational drug use - Past Family History Brother(s) Family Medical History: Diabetes Mellitus Additional Family Medical History / Comment(s): Patient has 2 brothers. One from complications from diabetes. The second is alive with diabetes. Sister(s) Family Medical History: Cancer Additional Family Medical History / Comment(s): Patient has one sister with breast cancer. Patient does not have any children. Father Family Medical History: Cancer Additional Family Medical History / Comment(s): Father in his 40s or 50s from colon cancer. Mother Family Medical History: Cancer Additional Family Medical History / Comment(s): Mother at age 68 from lung cancer. Medications and Allergies Home Medications Medication Instructions Recorded Confirmed Type Aspirin EC [Ecotrin Low Dose] 81 mg PO DAILY 30 Days #30 tab 07/13/24 09/30/24 Rx Pantoprazole [Protonix] 40 mg PO DAILY 30 Days #30 tab 07/13/24 09/30/24 Rx Budesonide/Formoterol Fumarate 2 puff INHALATION RT-BID 30 Days 08/15/24 09/30/24 Rx [Symbicort 80-4.5 Mcg Inhaler] #1 each Insulin Lispro [humaLOG Kwikpen] See Protocol SQ AC-TID 08/23/24 09/30/24 History ARIPiprazole [Abilify] 15 mg PO DAILY 30 Days #30 tab 09/19/24 09/30/24 Rx Atorvastatin [Lipitor] 10 mg PO HS 30 Days #30 tab 09/19/24 09/30/24 Rx Dapagliflozin Propanediol [Farxiga] 10 mg PO DAILY 30 Days #30 tab 09/19/24 09/30/24 Rx Sertraline [Zoloft] 100 mg PO DAILY 30 Days #30 tab 09/19/24 09/30/24 Rx busPIRone HCl [Buspar] 5 mg PO BID 30 Days #60 tab 09/19/24 09/30/24 Rx Acetaminophen [Tylenol] 325 - 650 mg PO TID PRN 09/30/24 09/30/24 History Albuterol Nebulized [Ventolin 2.5 mg INHALATION RT-Q6H PRN 09/30/24 09/30/24 History Nebulized] Albuterol Sulfate [Albuterol 2 puff PO RT-Q6H PRN 09/30/24 09/30/24 History Sulfate Hfa] Capsaicin Cream [Trixaicin Cream] 1 applic TOPICAL TID PRN 09/30/24 09/30/24 History Fluticasone Furoate [Flonase 1 spray EA NOSTRIL BID PRN 09/30/24 09/30/24 History Sensimist] Insulin Glargine,Hum.rec.anlog 15 unit SQ HS 09/30/24 09/30/24 History [Insulin Glargine Solostar] Ketorolac [Toradol] 10 mg PO Q6HR PRN 09/30/24 09/30/24 History Nicotine Polacrilex [Nicorette] 2 mg BC DIRECTED PRN 09/30/24 09/30/24 History Ondansetron [Zofran] 4 mg PO Q8HR PRN 09/30/24 09/30/24 History Simethicone [Simethicone Chew] 80 mg PO BID PRN 09/30/24 09/30/24 History traZODone HCL [Desyrel] 100 mg PO HS 09/30/24 09/30/24 History Allergies Allergy/AdvReac Type Severity Reaction Status Date / Time dicyclomine HCl [From Bentyl] Allergy Unknown Dyspnea Verified 09/30/24 16:46 latex Allergy Unknown Rash/Hives Verified 09/30/24 16:46 Benzoate Analogues Allergy Unknown Verified 09/30/24 16:46 benzonatate Allergy Unknown Verified 09/30/24 16:46 nitrofurantoin Allergy Nausea Verified 09/30/24 16:46 [From Macrobid] Penicillins Allergy "[place] Verified 09/30/24 16:46 funny" adhesive AdvReac Unknown Itching Verified 09/30/24 16:46 ciprofloxacin AdvReac Unknown Nausea Verified 09/30/24 16:46 Macrolide Antibiotics AdvReac Unknown Nausea Verified 09/30/24 16:46 sulfamethoxazole AdvReac Unknown Unknown Verified 09/30/24 16:46 [From Bactrim] trimethoprim [From Bactrim] AdvReac Unknown Unknown Verified 09/30/24 16:46 diphenhydramine AdvReac Confusion Verified 09/30/24 16:46 [From Benadryl] Physical Exam Vitals: Vital Signs Temp Pulse Resp BP Pulse Ox 10/01/24 21:00 97.6 F 65 14 105/72 91 L 10/01/24 07:54 97.4 F L 58 L 103/70 97 Intake and Output 10/01/24 10/01/24 10/02/24 14:59 22:59 06:59 Other: Weight 75 kg - Constitutional General appearance: cooperative - Respiratory Respiratory: bilateral: CTA - Cardiovascular right chest wall tenderness Rhythm: regular - Gastrointestinal General gastrointestinal: normal bowel sounds - Integumentary Integumentary: normal - Musculoskeletal Musculoskeletal: gait normal Limited insight Cranial Nerve Examination - Cranial Nerves Cranial Nerve II- Optic: Intact Cranial Nerve III- Oculomotor: Intact (CN 2-12 intact) Cranial Nerve IV- Trochlear: Intact Cranial Nerve V- Trigeminal: Intact Cranial Nerve - Abducens: Intact Cranial Nerve VII- Facial: Intact Cranial Nerve VIII- Auditory: Intact Cranial Nerve IX- Glossopharyngeal: Intact Cranial Nerve X- Vagus: Intact Cranial Nerve XI- Accessory: Intact Cranial Nerve XII- Hypoglossal: Intact Results CBC & Chem 7: 10/01/24 10:31 10/01/24 10:31 Labs: Abnormal Lab Results - Last 24 Hours (Table) 10/01/24 10/01/24 10/01/24 Range/Units 07:44 10:31 10:31 RBC 6.05 H (4.30-5.90) m/uL Glucose 190 H (74-99) mg/dL POC Glucose (mg/dL) 160 H (70-110) mg/dL TSH 0.302 L (0.465-4.680) mIU/L Urine Glucose (UA) (Negative) 10/01/24 10/01/24 10/01/24 Range/Units 11:20 12:34 17:41 RBC (4.30-5.90) m/uL Glucose (74-99) mg/dL POC Glucose (mg/dL) 160 H 146 H (70-110) mg/dL TSH (0.465-4.680) mIU/L Urine Glucose (UA) 4+ H (Negative) 10/01/24 Range/Units 19:59 RBC (4.30-5.90) m/uL Glucose (74-99) mg/dL POC Glucose (mg/dL) 171 H (70-110) mg/dL TSH (0.465-4.680) mIU/L Urine Glucose (UA) (Negative) Thrombosis Risk Factor Assmnt - Choose All That Apply Any of the Below Risk Factors Present?: Yes Each Factor Represents 1 point: Age 41-60 years Other Risk Factors: No Thrombosis Risk Factor Assessment Total Risk Factor Score: 1 Thrombosis Risk Factor Assessment Level: Low Risk Assessment and Plan (1) Chest pain Narrative/Plan: Right chest wall pain will place Lidoderm patch Current Visit: No Status: Acute Code(s): R07.9 - CHEST PAIN, UNSPECIFIED SNOMED Code(s): 56425357 (2) Depression Narrative/Plan: Continue per primary team Current Visit: Yes Status: Acute Code(s): F32.9 - MAJOR DEPRESSIVE DISORDER, SINGLE EPISODE, UNSPECIFIED SNOMED Code(s): 64046745 (3) HTN (hypertension) Narrative/Plan: Resume home meds Current Visit: Yes Status: Acute Code(s): I10 - ESSENTIAL (PRIMARY) HYPERTENSION SNOMED Code(s): 62195852 (4) Diabetes Narrative/Plan: Sliding scale coverage Home regimen Current Visit: Yes Status: Acute Code(s): E11.9 - TYPE 2 DIABETES MELLITUS WITHOUT COMPLICATIONS SNOMED Code(s): 17690307 (5) COPD (chronic obstructive pulmonary disease) Narrative/Plan: Does not appear to be in an exacerbation there is no wheezing does not appear short of breath continue home regimen Current Visit: Yes Status: Acute Code(s): J44.9 - CHRONIC OBSTRUCTIVE PULMONARY DISEASE, UNSPECIFIED SNOMED Code(s): 15251170 Plan: Lidoderm patch for chest wall pain continue home regiment
[2024-10-02 07:46] LABS: Urine Alcohol Negative (Negative); Urine Barbiturate Negative (Negative); Urine Cocaine Negative (Negative); Urine Methadone Negative (Negative); Urine Opiates Negative (Negative); Urine Phencyclidine Negative (Negative)
[2024-10-02 07:56] LABS: Glucose,Whole Blood 140 mg/dL (70-110)
[2024-10-02 08:25] LABS: Chol/HDL Ratio 2.83 Ratio; LDL Cholesterol,Calculated 69.4 mg/dL (0.0-131.0)
[2024-10-02] MEDS: LIDOCAINE 4% PATCH TOPICAL SCH (09:01)
--- NOTE | 2024-10-02 11:19 | P.PN ---
Progress Note - Text Progress Note Date: 10/02/24 Interval History: Patient was seen today wandering the hallways agreeable to speak to bond writer in the office. Patient claims that he is doing a bit better today with regards to his mood, claims that he would like to go to [place] for rehab. He had a number in his hand, claims that he will be doing the access line screening over the phone later on today. He claims that he does not want to go back to where he was living due to the "drinking" and claims that he will start drinking again if he is around those people. He claims that the drinking usually leads to be him being suicidal. He denies any withdrawal symptoms at this time. He is claiming that he slept fairly last night, has been eating well. Denies any suicidal homicidal ideations intent or plan denies any auditory or visual hallucinations. Not reporting any side effects from the medications. He was agreeable to receive Abilify Maintena to help stabilize his psychiatric symptoms and ensure compliance today. MENTAL STATUS EXAM: General Appearance: Patient appears to be stated age is alert, directable, and attempts to cooperate. Patient appears to have fair hygiene and grooming. Behavior: Patient is seated without any agitated behavior. Somewhat superficial. Speech: Patient's speech is fluent and nonpressured. Mood/Affect: Patient reports their mood is depressed and anxious, improving mildly, affect is congruent and constricted. Suicidality/Homicidality: Patient denies having any homicidal ideation intent or plan. He denies any suicidal ideations, no plan Perceptions: Patient denies any visual hallucinations he is denying any current auditory hallucinations Though content/process: There is no evidence of any delusional thought content and thought process is linear. Focused on rehab Memory and concentration: AOX3, grossly intact for the purposes of this session Judgment and insight: poor/limited, improving mildly IMPRESSIONS: adjustment disorder Schizoaffective disorder, depressed type Generalized anxiety disorder Nicotine dependence Alcohol use disorder PLAN: -Patient is admitted under voluntary status to [facility] for stabilization of psychiatric symptoms and safety. Patient has signed adult voluntary form and medication consent and is placed in patient's chart. -Medications : Zoloft 100 mg daily for depression/anxiety, Abilify 15 mg daily for psychosis/mood stabilization, patient is agreeable to receive Abilify Maintena 400 mg IM today to help with patient's compliance with medications. Trazodone 100 mg at bedtime for insomnia. buspar 5 mg bid for anxiety. -Haldol PRN for agitation/aggression -NRT - nicotine patch -SW on board for discharge planning. Encourage patient to participate in groups to work on coping skills. Patient will need a better diversion plan as patient comes to the ER for similar complaints, will need to include [facility] and his guardians in this plan. patient will attempt to call screening today.
[2024-10-02] MEDS: ARIPiprazole IM SYRINGE 400 MG (NO CHARGE) PHARMACY STOCK IM SCH (11:26)
[2024-10-02 12:50] LABS: Glucose,Whole Blood 186 mg/dL (70-110)
[2024-10-02 17:46] LABS: Glucose,Whole Blood 95 mg/dL (70-110)
[2024-10-02 19:59] LABS: Glucose,Whole Blood 166 mg/dL (70-110)
[2024-10-02] MEDS: ONDANSETRON ODT 4 MG TAB PO PRN (22:40)
[2024-10-02] MEDS: KETOROLAC 15 MG/ML 1 ML VIAL IM STA (23:19)
[2024-10-03 07:56] LABS: Glucose,Whole Blood 170 mg/dL (70-110)
[2024-10-03] MEDS: ARIPiprazole 15 MG TAB PO SCH (08:09)
--- NOTE | 2024-10-03 11:10 | P.PN ---
Progress Note - Text Progress Note Date: 10/03/24 Interval History: Patient was seen today wandering the hallways agreeable to speak to fiction writer in the office. Patient claims that he is doing a bit better today with regards to his mood. patient was fairly concrete. he was fairly focused on going home today. He claims that the drinking usually leads to be him being suicidal. He denies any withdrawal symptoms at this time. He is claiming that he slept fairly last night, has been eating well. Denies any suicidal homicidal ideations intent or plan denies any auditory or visual hallucinations. Not reporting any side effects from the medications. he recieevd Abilify Maintena yesterday to help stabilize his psychiatric symptoms and ensure compliance today. MENTAL STATUS EXAM: General Appearance: Patient appears to be stated age is alert, directable, and attempts to cooperate. Patient appears to have fair hygiene and grooming. Behavior: Patient is seated without any agitated behavior. Somewhat superficial. Speech: Patient's speech is fluent and nonpressured. Mood/Affect: Patient reports their mood is improving mildly, affect is congruent Suicidality/Homicidality: Patient denies having any homicidal ideation intent or plan. He denies any suicidal ideations, no plan Perceptions: Patient denies any visual hallucinations he is denying any current auditory hallucinations Though content/process: There is no evidence of any delusional thought content and thought process is linear. Focused on rehab Memory and concentration: AOX3, grossly intact for the purposes of this session Judgment and insight: poor/limited, improving mildly IMPRESSIONS: adjustment disorder Schizoaffective disorder, depressed type Generalized anxiety disorder Nicotine dependence Alcohol use disorder PLAN: -Patient is admitted under voluntary status to [facility] for stabilization of psychiatric symptoms and safety. Patient has signed adult voluntary form and medication consent and is placed in patient's chart. -Medications : Zoloft 100 mg daily for depression/anxiety, Abilify 15 mg daily for psychosis/mood stabilization, patient received Abilify Maintena 400 mg IM on 10/02 and next dose will be due on 10/30. Trazodone 100 mg at bedtime for insomnia. buspar 5 mg bid for anxiety. -Haldol PRN for agitation/aggression -NRT - nicotine patch -SW on board for discharge planning. Encourage patient to participate in groups to work on coping skills. Patient will need a better diversion plan as patient comes to the ER for similar complaints. william gonzalez working with [facility] for this. likely discharge tomorrow. he is not approved for rehab
[2024-10-03 12:55] LABS: Glucose,Whole Blood 194 mg/dL (70-110)
[2024-10-03 17:40] LABS: Glucose,Whole Blood 167 mg/dL (70-110)
[2024-10-03 19:59] LABS: Glucose,Whole Blood 243 mg/dL (70-110)
[2024-10-04 07:47] LABS: Glucose,Whole Blood 182 mg/dL (70-110)
[2024-10-04 07:59] VITALS: PULSE 61; TEMP 98
[2024-10-04 11:04] VITALS: BP 110/70; RESP 18
--- NOTE | 2024-10-04 11:11 | P.DS ---
Providers Date of admission: 09/30/24 14:30 Expected date of discharge: 10/04/24 Attending physician: Wisam Espinal MD Consults: 09/30/24 14:33 Consult Physician Routine Consulting Provider: Francisco Newell Consult Reason/Comments: New pt H&P Do you want consulting provider notified?: Yes Primary care physician: Bryan Martinez MD - Discharge Diagnosis(es) (1) Adjustment disorder Current Visit: Yes Status: Acute Priority: High (2) Schizoaffective disorder, depressive type Current Visit: Yes Status: Acute Priority: High (3) Generalized anxiety disorder Current Visit: Yes Status: Acute Priority: Medium (4) Nicotine dependence Current Visit: Yes Status: Acute Priority: Low (5) Alcohol use disorder Current Visit: Yes Status: Acute Priority: Low Hospital Course: Admission HPI: Admission note was completed by journalists and other writers "patient is a single, unemployed, 54-year-old male with a guardian who is presenting with suicidal ideation and depression to the ER. Patient has public guardian's. Patient has a history of schizoaffective disorder generalized anxiety disorder and alcohol abuse, has been admitted to the psychiatric unit several times in the past, has been seen in the ER multiple times for psychiatric problems and alcohol issues. Patient was evaluated yesterday by EPS nurse and according to note "Patient checked back into ER regarding suicidal ideation with a plan to overdose. Patient given safety plan per his diversion plan at 1226. Patient contacted his PCP and [facility] to express that if he goes home he is going to kill himself. Patient states he is going to take all his pills because he feels like no one cares about him or if he . Patient states he is having auditory and visual hallucinations. States the hallucinations tell him to do bad things. Describes his visual hallucinations as "visions of people dying". Patient verbalizes feeling paranoid all the time. Patient states his symptoms have been worsening over the last 3 days. Patient states that he is compliant with his home medications and attending all his outpatient appointments as scheduled." Patient was admitted last night to the unit restarted back on his medications. He was agreeable to speak to journalists and other writers in the office. He continues to state that he has been feeling suicidal, also was endorsing seeing "dark shadows". He claims that he called his guardian and also his doctor who told him to come back to the ER after attempting to be diverted. Patient states that for the last couple of days he has been feeling more depressed. Claims that she is having difficulty with his living situation and also states that his [id number] has been "in my business more and stressing me out". He claims that he has an increase in his stressors, leading to more drinking, he was vague about how much he is drinking at this time, minor withdrawal symptoms. Patient is catastrophizing, claims that his trigger is mainly his living situation. At this time he is denying any suicidal homicidal ideations intent or plan denying any auditory visual hallucinations." Hospital course: Upon admission to the unit patient was directable and agreeable to commence treatment and signed adult voluntary form. Patient was initially depressed anxious however with time and treatment patient got along well with other patients on the unit and followed unit protocol. Patient was compliant with the medications and denied any side effects throughout hospital course. Patient was started on his home dose of Zoloft 100 mg daily for mood/anxiety, patient was restarted back on Abilify home dose 15 mg daily for psychosis/mood stabilization. BuSpar 5 mg twice daily for anxiety. Trazodone 100 mg nightly for sleep. Due to patient instability and questionable compliance, he was offered to be transition onto long-acting injection Abilify Maintenna, he was agreeable to receive the first dose 400 mg IM on 10/02, next dose will be due on 10/31 at [facility]. Patient spoke of his stressors and engaged in therapy both group/activity therapy. Patient was also seen by medical team for history and physical exam. Throughout the course of the hospitalization patient gradually improved with regards to mood, anxiety, suicidal thoughts, sleep and returned back to their baseline level of functioning. On the day of discharge patient denied any suicidal or homicidal ideations intent or plan denied any auditory or visual hallucinations. Patient endorsed wanting to live for his health and his future. The patient denied any access to guns or weapons. Patient denied any paranoia and did not endorse any delusions. Patient does have a significant history of substance abuse and was counseled on abstaining from all substances including alcohol and marijuana. Patient elected to do outpatient substance use treatment program through their outpatient provider. Patient was also counseled on the medications and need for regular compliance and was encouraged to follow- up with their outpatient appointment for mental health and also for primary care. Patient will be discharged back to preadmission address, due to patient's frequent ER contacts and hospitalizations we will continue working with [facility] and guardians to have an adequate diversion plan for patient during crisis. Mental status exam: General Appearance: Patient appears to be wearing glasses, stated age is alert, pleasant, and cooperative. Patient is in no acute distress and has improved hygiene and grooming Behavior: Patient is calmly seated without any agitated behavior. Speech: Patient's speech is fluent and nonpressured. Mood/Affect: Patient reports their mood is "better", affect is congruent and euthymic. Suicidality/Homicidality: Patient denies having any suicidal or homicidal ideation intent or plan. Perceptions: Patient denies any auditory or visual hallucinations. Though content/process: There is no evidence of any delusional thought content and thought process is linear and goal-directed. More future oriented Memory and concentration: AOX3, grossly intact for the purposes of this session. Can spell "WORLD" backwards correctly. Judgment and insight: Chronically poor, however has improved with guarded prognosis Impression: Adjustment disorder Schizoaffective disorder depressive type Generalized anxiety disorder Alcohol use disorder Nicotine dependence Plan: -Continue with discharge today as patient has improved and stabilized psychiatrically and is not currently an imminent threat to themself and/or others. Patient will remain at chronically elevated risk for harm to self and/or others due to their impulsivity. -Continue medications: Zoloft 100 mg daily for mood/anxiety, Abilify p.o. 15 mg daily for 13 more days then discontinue. Patient was given Abilify Maintena 400 mg IM on 10/02, next dose will be due on 10/31 at [facility] q. monthly. Trazodone 100 mg nightly for insomnia/mood, BuSpar 5 mg twice daily for anxiety -Patient was counseled on the need for medication compliance and appropriate follow-up at mental health and also primary care for medical issues. Patient verbalized understanding and agreed. -Social work to help coordinate patients discharge today. also to ensure safe home environment that guns/weapons are either removed from the home or locked away. Social work also to arrange for patients follow up appointments with [facility] for psychiatric care along with follow up with primary care provider. -Patient counseled on abstaining from recreational drugs and marijuana and alco hol. Was informed/educated on the adverse effects on their physical and mental health. Patient verbally agreed and understood. -Patient was instructed to return to the hospital or seek immediate medical care if their psychiatric or medical symptoms do worsen or reoccur. Allergies Allergy/AdvReac Type Severity Reaction Status Date / Time dicyclomine HCl [From Bentyl] Allergy Unknown Dyspnea Verified 09/30/24 16:46 latex Allergy Unknown Rash/Hives Verified 09/30/24 16:46 Benzoate Analogues Allergy Unknown Verified 09/30/24 16:46 benzonatate Allergy Unknown Verified 09/30/24 16:46 nitrofurantoin Allergy Nausea Verified 09/30/24 16:46 [From Macrobid] Penicillins Allergy "Preston Verified 09/30/24 16:46 funny" adhesive AdvReac Unknown Itching Verified 09/30/24 16:46 ciprofloxacin AdvReac Unknown Nausea Verified 09/30/24 16:46 Macrolide Antibiotics AdvReac Unknown Nausea Verified 09/30/24 16:46 sulfamethoxazole AdvReac Unknown Unknown Verified 09/30/24 16:46 [From Bactrim] trimethoprim [From Bactrim] AdvReac Unknown Unknown Verified 09/30/24 16:46 diphenhydramine AdvReac Confusion Verified 09/30/24 16:46 [From Benadryl] Laboratory Results WBC 7.5 k/uL (3.8-10.6) 10/01/24 10:31 RBC 6.05 m/uL (4.30-5.90) H 10/01/24 10:31 Hgb 17.2 gm/dL (13.0-17.5) 10/01/24 10:31 Hct 52.4 % (39.0-53.0) 10/01/24 10:31 MCV 86.6 fL (80.0-100.0) 10/01/24 10:31 MCH 28.4 pg (25.0-35.0) 10/01/24 10:31 MCHC 32.8 g/dL (31.0-37.0) 10/01/24 10:31 RDW 14.5 % (11.5-15.5) 10/01/24 10:31 Plt Count 203 k/uL (150-450) 10/01/24 10:31 MPV 7.9 10/01/24 10:31 Neutrophils % 74 % 10/01/24 10:31 Lymphocytes % 16 % 10/01/24 10:31 Monocytes % 5 % 10/01/24 10:31 Eosinophils % 3 % 10/01/24 10:31 Basophils % 0 % 10/01/24 10:31 Neutrophils # 5.6 k/uL (1.3-7.7) 10/01/24 10:31 Lymphocytes # 1.2 k/uL (1.0-4.8) 10/01/24 10:31 Monocytes # 0.4 k/uL (0-1.0) 10/01/24 10:31 Eosinophils # 0.2 k/uL (0-0.7) 10/01/24 10:31 Basophils # 0.0 k/uL (0-0.2) 10/01/24 10:31 Sodium 139 mmol/L (137-145) 10/01/24 10:31 Potassium 4.4 mmol/L (3.5-5.1) 10/01/24 10:31 Chloride 107 mmol/L (98-107) 10/01/24 10:31 Carbon Dioxide 23 mmol/L (22-30) 10/01/24 10:31 Anion Gap 9 mmol/L 10/01/24 10:31 BUN 15 mg/dL (9-20) 10/01/24 10:31 Creatinine 0.77 mg/dL (0.66-1.25) 10/01/24 10:31 Est GFR (CKD-EPI)AfAm >90 (>60 ml/min/1.73 sqM) 10/01/24 10:31 Est GFR (CKD-EPI)NonAf >90 (>60 ml/min/1.73 sqM) 10/01/24 10:31 Glucose 190 mg/dL (74-99) H 10/01/24 10:31 POC Glucose (mg/dL) 182 mg/dL (70-110) H 10/04/24 07:44 POC Glu [employer] JEANCARLOS New 10/04/24 07:[address] Glu mg/dL 171 mg/dL 10/01/24 10:31 Hemoglobin A1c 7.6 % (<=6.0) H 10/01/24 10:31 Calcium 10.2 mg/dL (8.4-10.2) 10/01/24 10:31 Total Bilirubin 0.5 mg/dL (0.2-1.3) 10/01/24 10:31 Conjugated Bilirubin 0.0 mg/dL (0.0-0.3) 10/01/24 10:31 Unconjugated Bilirubin 0.3 mg/dL (0.0-1.1) 10/01/24 10:31 Delta Bilirubin 0.2 mg/dL (0.0-0.2) 10/01/24 10:31 AST 24 U/L (17-59) 10/01/24 10:31 ALT 35 U/L (4-49) 10/01/24 10:31 Alkaline Phosphatase 79 U/L (38-126) 10/01/24 10:31 Total Protein 6.5 g/dL (6.3-8.2) 10/01/24 10:31 Albumin 4.3 g/dL (3.5-5.0) 10/01/24 10:31 Triglycerides 157.00 mg/dL (0.00-149.00) H 10/01/24 10:31 Cholesterol 156.00 mg/dL (0.00-200.00) 10/01/24 10:31 LDL Cholesterol, Calc 69.4 mg/dL (0.0-131.0) 10/01/24 10:31 VLDL Cholesterol, Calc 31.40 mg/dL (5.00-40.00) 10/01/24 10:31 HDL Cholesterol 55.20 mg/dL (40.00-60.00) 10/01/24 10:31 Cholesterol/HDL Ratio 2.83 Ratio 10/01/24 10:31 TSH 0.302 mIU/L (0.465-4.680) L 10/01/24 10:31 Urine Color Colorless 10/01/24 11:20 Urine Appearance Clear (Clear) 10/01/24 11:20 Urine pH 5.5 (5.0-8.0) 10/01/24 11:20 Ur Specific [place] 1.033 (1.001-1.035) 10/01/24 11:20 Urine Protein Negative (Negative) 10/01/24 11:20 Urine Glucose (UA) 4+ (Negative) H 10/01/24 11:20 Urine Ketones Negative (Negative) 10/01/24 11:20 Urine Blood Negative (Negative) 10/01/24 11:20 Urine Nitrite Negative (Negative) 10/01/24 11:20 Urine Bilirubin Negative (Negative) 10/01/24 11:20 Urine Urobilinogen <2.0 mg/dL (<2.0) 10/01/24 11:20 Ur Leukocyte Esterase Negative (Negative) 10/01/24 11:20 Urine Opiates Screen Negative (Negative) 10/01/24 11:20 Urine Methadone Screen Negative (Negative) 10/01/24 11:20 Ur Propoxyphene Screen Negative (Negative) 10/01/24 11:20 Urine Barbiturates Negative (Negative) 10/01/24 11:20 Ur Phencyclidine Scrn Negative (Negative) 10/01/24 11:20 Ur Amphetamine Screen Negative (Negative) 10/01/24 11:20 U Benzodiazepines Scrn Negative (Negative) 10/01/24 11:20 Urine Cocaine Screen Negative (Negative) 10/01/24 11:20 U Cannabinoids Screen Negative (Negative) 10/01/24 11:20 Urine Alcohol Negative (Negative) 10/01/24 11:20 U Creatinine Drug Scrn 71.0 mg/dL (>=20.0) 10/01/24 11:20 Vital Signs Temp 98.0 F 10/04/24 11:04 Pulse 61 10/04/24 11:04 Resp 18 10/04/24 11:04 BP 110/70 10/04/24 11:04 Pulse Ox 97 10/04/24 11:04 FiO2 Patient Condition at Discharge: Stable Plan - Discharge Summary Discharge Rx Participant: No New Discharge Prescriptions: New ARIPiprazole IM SYRINGE [Abilify Maintena Syringe] 400 mg IM QMONTHLY #1 each ARIPiprazole [Abilify] 15 mg PO DAILY 13 Days #13 tab Continue Pantoprazole [Protonix] 40 mg PO DAILY 30 Days #30 tab Insulin Lispro [humaLOG Kwikpen] See Protocol SQ AC-TID busPIRone HCl [Buspar] 5 mg PO BID 30 Days #60 tab Dapagliflozin Propanediol [Farxiga] 10 mg PO DAILY 30 Days #30 tab Insulin Glargine,Hum.rec.anlog [Insulin Glargine Solostar] 15 unit SQ HS Fluticasone Furoate [Flonase Sensimist] 1 spray EA NOSTRIL BID PRN PRN Reason: Nasal Congestion Capsaicin Cream [Trixaicin Cream] 1 applic TOPICAL TID PRN PRN Reason: LEFT KNEE PAIN Aspirin EC [Ecotrin Low Dose] 81 mg PO DAILY 30 Days #30 tab Budesonide/Formoterol Fumarate [Symbicort 80-4.5 Mcg Inhaler] 2 puff INHALATION RT-BID 30 Days #1 each Atorvastatin [Lipitor] 10 mg PO HS 30 Days #30 tab Sertraline [Zoloft] 100 mg PO DAILY 30 Days #30 tab traZODone HCL [Desyrel] 100 mg PO HS Ondansetron [Zofran] 4 mg PO Q8HR PRN PRN Reason: Nausea And Vomiting Nicotine Polacrilex [Nicorette] 2 mg BC DIRECTED PRN PRN Reason: Nicotine Cravings Ketorolac [Toradol] 10 mg PO Q6HR PRN PRN Reason: Pain Albuterol Nebulized [Ventolin Nebulized] 2.5 mg INHALATION RT-Q6H PRN PRN Reason: Shortness Of Breath Discontinued Simethicone [Simethicone Chew] 80 mg PO BID PRN PRN Reason: GAS Acetaminophen [Tylenol] 325 - 650 mg PO TID PRN PRN Reason: Pain ARIPiprazole [Abilify] 15 mg PO DAILY 30 Days #30 tab Albuterol Sulfate [Albuterol Sulfate Hfa] 2 puff PO RT-Q6H PRN PRN Reason: Shortness Of Breath Discharge Medication List Aspirin EC [Ecotrin Low Dose] 81 mg PO DAILY 30 Days #30 tab 07/13/24 [Rx] Pantoprazole [Protonix] 40 mg PO DAILY 30 Days #30 tab 07/13/24 [Rx] Budesonide/Formoterol Fumarate [Symbicort 80-4.5 Mcg Inhaler] 2 puff INHALATION RT-BID 30 Days #1 each 08/15/24 [Rx] Insulin Lispro [humaLOG Kwikpen] See Protocol SQ AC-TID 08/23/24 [History] Atorvastatin [Lipitor] 10 mg PO HS 30 Days #30 tab 09/19/24 [Rx] Dapagliflozin Propanediol [Farxiga] 10 mg PO DAILY 30 Days #30 tab 09/19/24 [Rx] Sertraline [Zoloft] 100 mg PO DAILY 30 Days #30 tab 09/19/24 [Rx] busPIRone HCl [Buspar] 5 mg PO BID 30 Days #60 tab 09/19/24 [Rx] Albuterol Nebulized [Ventolin Nebulized] 2.5 mg INHALATION RT-Q6H PRN 09/30/24 [History] Capsaicin Cream [Trixaicin Cream] 1 applic TOPICAL TID PRN 09/30/24 [History] Fluticasone Furoate [Flonase Sensimist] 1 spray EA NOSTRIL BID PRN 09/30/24 [History] Insulin Glargine,Hum.rec.anlog [Insulin Glargine Solostar] 15 unit SQ HS 09/30/24 [History] Ketorolac [Toradol] 10 mg PO Q6HR PRN 09/30/24 [History] Nicotine Polacrilex [Nicorette] 2 mg BC DIRECTED PRN 09/30/24 [History] Ondansetron [Zofran] 4 mg PO Q8HR PRN 09/30/24 [History] traZODone HCL [Desyrel] 100 mg PO HS 09/30/24 [History] ARIPiprazole IM SYRINGE [Abilify Maintena Syringe] 400 mg IM QMONTHLY #1 each 10/04/24 [Rx] ARIPiprazole [Abilify] 15 mg PO DAILY 13 Days #13 tab 10/04/24 [Rx] Follow up Appointment(s)/Referral(s): [facility] [Outside] - 10/05/24 2:00 pm (10/05/2024 2:00PM - 3:00PM [facility] 10/12/2024 2:00PM - 2:30PM CATY ZHAO ) Bryan Martinez MD [Primary Care Provider] - 1-2 days Patient Instructions/Handouts: How to Stop Smoking (DC), Depression (DC) Activity/Diet/Wound Care/Special Instructions: [facility] Discharge Info Avoid the use of street drugs and alcohol. Take all medications as prescribed. When you are in need of refills on your medications, please contact your outpatient medical provider and/or outpatient psychiatrist. Please go to your scheduled outpatient appointments for aftercare treatment. If symptoms return or become worse, call the crisis line at or and/or visit the nearest emergency room for assistance. National Suicide and Crisis Lifeline - call or text 988 Discharge Disposition: HOME SELF-CARE
== END 2024-10-04 11:28 | disposition home or self-care (01) | DRG 882 ==
LOC: EC 13:04 → 3MHU 14:30
PROVIDERS: ADMIT Psychiatry & Neurology Psychiatry; ATTEND Psychiatry & Neurology Psychiatry
DX: F43.20 Adjustment disorder, unspecified (principal); F25.1 Schizoaffective disorder, depressive type; J44.89 Other specified chronic obstructive pulmonary disease; E11.9 Type 2 diabetes mellitus without complications; F10.11 Alcohol abuse, in remission; I10 Essential (primary) hypertension; K76.9 Liver disease, unspecified; R45.851 Suicidal ideations; Z79.4 Long term (current) use of insulin; F41.1 Generalized anxiety disorder; F17.210 Nicotine dependence, cigarettes, uncomplicated; E78.5 Hyperlipidemia, unspecified; R07.89 Other chest pain; G47.00 Insomnia, unspecified; H91.90 Unspecified hearing loss, unspecified ear; Z79.82 Long term (current) use of aspirin; Z79.51 Long term (current) use of inhaled steroids; Z79.84 Long term (current) use of oral hypoglycemic drugs; Z79.899 Other long term (current) drug therapy; Z56.0 Unemployment, unspecified; Z86.73 Personal history of transient ischemic attack (TIA), and cerebral infarction without residual deficits; Z91.51 Personal history of suicidal behavior; Z91.040 Latex allergy status; Z88.0 Allergy status to penicillin; Z88.1 Allergy status to other antibiotic agents; Z88.2 Allergy status to sulfonamides; Z88.8 Allergy status to other drugs, medicaments and biological substances
CPT/HCPCS: 80053; 80061; 80306; 81003; 82075; 82248; 83036; 84443; 85025; 99285

== ENCOUNTER 2024-10-05 03:28 | Emergency (ER) | payer OTHER, MEDICARE ==
[2024-10-05 03:35] VITALS: BP 156/90; PULSE 66; RESP 16; TEMP 98
[2024-10-05] MEDS: KETOROLAC 15 MG/ML 1 ML VIAL IM STA (04:29)
[2024-10-05] MEDS: GABAPENTIN 300 MG CAP PO STA (04:32)
[2024-10-05] MEDS: ONDANSETRON ODT 4 MG TAB PO STA (05:11)
--- NOTE | 2024-10-05 05:19 | XR ---
EXAMINATION TYPE: XR foot complete bilateral DATE OF EXAM: 10/05/2024 CLINICAL INDICATION: Male, 54 years old with history of calcaneus pain, pain TECHNIQUE: Frontal, lateral, and oblique images of the bilateral feet are obtained. COMPARISON: None FINDINGS: There is no acute fracture/dislocation evident in either foot. The joint spaces in the bi lateral feet appear within normal limits. The overlying soft tissue appears unremarkable bilaterally . IMPRESSION: Unremarkable study. [facility], , 10/05/2024 5:17 AM
--- NOTE | 2024-10-05 05:44 | ED ---
Extremity Problem HPI - General Chief complaint: Extremity Problem,Nontraumatic Stated complaint: foot pain Time Seen by Provider: 10/05/24 03:33 Source: patient, EMS Mode of arrival: EMS Limitations: no limitations - History of Present Illness Initial comments: This patient is 54-year-old male with history of diabetes who presents to have evaluation of bilateral heel pain. Patient notes that it is worse when he is up walking, better when he is resting. He has not noted fever or warmth to the feet. No erythema. Patient denies trauma. MD Complaint: extremity pain -: hour(s) Location: bilateral lower extremity History of Same: Yes Radiation: none Quality: aching Consistency: constant Improves with: nothing Worsens with: walking Associated Symptoms: denies other symptoms - Related Data Home Medications Medication Instructions Recorded Confirmed Insulin Lispro [humaLOG Kwikpen] See Protocol SQ AC-TID 08/23/24 10/13/24 Albuterol Nebulized [Ventolin 2.5 mg INHALATION RT-Q6H PRN 09/30/24 10/13/24 Nebulized] Capsaicin Cream [Trixaicin Cream] 1 applic TOPICAL TID PRN 09/30/24 10/13/24 Fluticasone Furoate [Flonase 1 spray EA NOSTRIL BID PRN 09/30/24 10/13/24 Sensimist] Insulin Glargine,Hum.rec.anlog 15 unit SQ HS 09/30/24 10/13/24 [Insulin Glargine Solostar] Nicotine Polacrilex [Nicorette] 2 mg BC DIRECTED PRN 09/30/24 10/13/24 Ondansetron [Zofran] 4 mg PO Q8HR PRN 09/30/24 10/13/24 traZODone HCL [Desyrel] 100 mg PO HS 09/30/24 10/13/24 Ammonium Lactate [Amlactin] 1 applic TOPICAL DAILY 10/13/24 10/13/24 Previous Rx's Medication Instructions Recorded Aspirin EC [Ecotrin Low Dose] 81 mg PO DAILY 30 Days #30 tab 07/13/24 Pantoprazole [Protonix] 40 mg PO DAILY 30 Days #30 tab 07/13/24 Budesonide/Formoterol Fumarate 2 puff INHALATION RT-BID 30 Days 08/15/24 [Symbicort 80-4.5 Mcg Inhaler] #1 each Atorvastatin [Lipitor] 10 mg PO HS 30 Days #30 tab 09/19/24 Dapagliflozin Propanediol [Farxiga] 10 mg PO DAILY 30 Days #30 tab 09/19/24 Sertraline [Zoloft] 100 mg PO DAILY 30 Days #30 tab 09/19/24 busPIRone HCl [Buspar] 5 mg PO BID 30 Days #60 tab 09/19/24 ARIPiprazole IM SYRINGE [Abilify 400 mg IM QMONTHLY #1 each 10/04/24 Maintena Syringe] ARIPiprazole [Abilify] 15 mg PO DAILY 13 Days #13 tab 10/04/24 Allergies Allergy/AdvReac Type Severity Reaction Status Date / Time dicyclomine HCl [From Bentyl] Allergy Unknown Dyspnea Verified 10/27/24 05:01 latex Allergy Unknown Rash/Hives Verified 10/27/24 05:01 Benzoate Analogues Allergy Unknown Verified 10/27/24 05:01 benzonatate Allergy Unknown Verified 10/27/24 05:01 nitrofurantoin Allergy Nausea Verified 10/27/24 05:01 [From Macrobid] Penicillins Allergy "[place] Verified 10/27/24 05:01 funny" adhesive AdvReac Unknown Itching Verified 10/27/24 05:01 ciprofloxacin AdvReac Unknown Nausea Verified 10/27/24 05:01 Macrolide Antibiotics AdvReac Unknown Nausea Verified 10/27/24 05:01 sulfamethoxazole AdvReac Unknown Unknown Verified 10/27/24 05:01 [From Bactrim] trimethoprim [From Bactrim] AdvReac Unknown Unknown Verified 10/27/24 05:01 diphenhydramine AdvReac Confusion Verified 10/27/24 05:01 [From Benadryl] Review of Systems ROS Statement: Those systems with pertinent positive or pertinent negative responses have been documented in the HPI. ROS Other: All systems not noted in ROS Statement are negative. Constitutional: Denies: fever, chills, weakness Respiratory: Denies: cough, dyspnea Cardiovascular: Denies: chest pain, palpitations, edema Gastrointestinal: Denies: abdominal pain, nausea, vomiting Musculoskeletal: Reports: as per HPI, arthralgia. Denies: back pain Skin: Denies: rash Neurological: Denies: headache, weakness Past Medical History Past Medical History: Asthma, Chest Pain / Angina, COPD, CVA/TIA, Diabetes Mellitus, GERD/Reflux, Hearing Disorder / Deafness, Hyperlipidemia, Hypertension, Liver Disease, Osteoarthritis (OA), Pneumonia, Seizure Disorder, Sleep Apnea/CPAP/BIPAP Additional Past Medical History / Comment(s): states CVA at 35 yrs old, no weakness @ this time. states seizure at 35 yrs old., DDD- back & neck pain., carpal tunnel syndrome. Has [employer] public guardian. History of Any Multi-Drug Resistant Organisms: Other MDRO Past Surgical History: Heart Catheterization, Orthopedic Surgery Additional Past Surgical History / Comment(s): Cysts removed, left thumb surgery, colonoscopy 08/24/2019. Skin tags removed from both eyes. Past Anesthesia/Blood Transfusion Reactions: Motion Sickness, Postoperative Nausea & Vomiting (PONV) Past Psychological History: Anxiety, Bipolar, Depression Smoking Status: Current every day smoker Past Alcohol Use History: Abuse Past Drug Use History: None Reported - Past Family History Brother(s) Family Medical History: Diabetes Mellitus Additional Family Medical History / Comment(s): Patient has 2 brothers. One from complications from diabetes. The second is alive with diabetes. Sister(s) Family Medical History: Cancer Additional Family Medical History / Comment(s): Patient has one sister with breast cancer. Patient does not have any children. Father Family Medical History: Cancer Additional Family Medical History / Comment(s): Father in his 40s or 50s from colon cancer. Mother Family Medical History: Cancer Additional Family Medical History / Comment(s): Mother at age 68 from lung cancer. General Exam Limitations: no limitations General appearance: alert, in no apparent distress Head exam: Present: atraumatic, normocephalic Eye exam: Present: normal appearance Neck exam: Present: normal inspection, full ROM Respiratory exam: Present: normal lung sounds bilaterally. Absent: respiratory distress, wheezes, rales, rhonchi, stridor, accessory muscle use Cardiovascular Exam: Present: regular rate, normal rhythm, normal heart sounds. Absent: systolic murmur, diastolic murmur, rubs, gallop GI/Abdominal exam: Present: soft. Absent: distended, tenderness, guarding, rebound, rigid, mass Extremities exam: Present: normal inspection, tenderness (Bilateral calcaneus), normal capillary refill. Absent: pedal edema, calf tenderness Back exam: Present: normal inspection Neurological exam: Present: alert. Absent: motor sensory deficit Skin exam: Present: warm, dry, intact, normal color. Absent: rash Course Vital Signs 10/05/24 03:31 Temperature 98.0 F Pulse Rate 66 Respiratory 16 Rate Blood Pressure 156/90 O2 Sat by Pulse 97 Oximetry Medical Decision Making - Medical Decision Making Was pt. sent in by a medical professional or institution (, SEAN, VISUAL C DEVELOPER, urgent care, hospital, or [facility]...) When possible be specific @ -[No] Did you speak to anyone other than the patient for history (EMS, parent, family, police, friend...)? What history was obtained from this source @ -[No] Did you review nursing and triage notes (agree or disagree)? Why? @ -[I reviewed and agree with nursing and triage notes] Were old charts reviewed (outside hosp., previous admission, EMS record, old EKG, old radiological studies, urgent care reports/EKG's, [facility] records)? Report findings @ -[No old charts were reviewed] Differential Diagnosis (chest pain, altered mental status, abdominal pain women, abdominal pain men, vaginal bleeding, weakness, fever, dyspnea, syncope, headache, dizziness, GI bleed, back pain, seizure, CVA, palpatations, mental health, musculoskeletal)? @ -[Differential Musculoskeletal Muscular strain, contusion, ligament sprain, fracture, arthritis, septic arthritis, bursitis, cellulitis, muscle spasm, nerve compression, DVT, arterial occlusion, herpes zoster, electrolyte abnormality, tumor.... This is not meant to be in all inclusive list EKG interpreted by me (3pts min.). @ -[As above] X-rays interpreted by me (1pt min.). @ -I interpreted as above CT interpreted by me (1pt min.). @ -[None done] U/S interpreted by me (1pt. min.). @ -[None done] What testing was considered but not performed or refused? (CT, X-rays, U/S, labs)? Why? @ -[None] What meds were considered but not given or refused? Why? @ -[None] Did you discuss the management of the patient with other professionals (professionals i.e. , SEAN, VISUAL C DEVELOPER, lab, RT, psych nurse, director of social work, master hearth technician, teacher, aboriginal liaison officer, case managers)? Give summary @ -[No] Was smoking cessation discussed for >3mins.? @ -[No] Was critical care preformed (if so, how long)? @ -[No] Were there social determinants of health that impacted care today? How? (Homelessness, low income, unemployed, alcoholism, drug addiction, transportation, low edu. Level, literacy, decrease access to med. care, [facility], rehab)? @ -[No] Was there de-escalation of care discussed even if they declined (Discuss DNR or withdrawal of care, Hospice)? DNR status @ -[No] What co-morbidities impacted this encounter? (DM, HTN, Smoking, COPD, CAD, Ca ncer, CVA, ARF, Chemo, Hep., AIDS, mental health diagnosis, sleep apnea, morbid obesity)? @ -[Diabetes Was patient admitted / discharged? Hospital course, mention meds given and route, prescriptions, significant lab abnormalities, going to OR and other pertinent info. @ -[Patient is 54-year-old man with bilateral calcaneus pain. Further history reveals he does have intermittent pains going back some time. The physical exam benign and the patient's films are unremarkable. At this point we will treat as chronic pain, discussed appropriate further care and follow-up as well as return parameters. Undiagnosed new problem with uncertain prognosis? @ -[No] Drug Therapy requiring intensive monitoring for toxicity (Heparin, Nitro, Insulin, Cardizem)? @ -[No] Were any procedures done? @ -[No] Diagnosis/symptom? @ -[default] Acute, or Chronic, or Acute on Chronic? @ -[Acute exacerbation of chronic bilateral lower extremity pain Uncomplicated (without systemic symptoms) or Complicated (systemic symptoms)? @ -[Uncomplicated Side effects of treatment? @ -[No] Exacerbation, Progression, or Severe Exacerbation? @ -[No] Poses a threat to life or bodily function? How? (Chest pain, [place], [place], pneumonia, PE, COPD, DKA, ARF, appy, cholecystitis, CVA, Diverticulitis, Homicidal, Suicidal, threat to staff... and all critical care pts) @ -[No] All treatments are based on ideal body weight as in ED triage Disposition Clinical Impression: Chronic leg pain Disposition: HOME SELF-CARE Condition: Good Instructions (If sedation given, give patient instructions): Arthralgia (ED) Is patient prescribed a controlled substance at d/c from ED?: No Referrals: None,Stated [Primary Care Provider] - 1-2 days Han Galvan, [REFERRING] - 1-2 days
== END 2024-10-05 07:11 | disposition home or self-care (01) ==
LOC: EC 03:28
DX: G89.29 Other chronic pain (principal); M77.31 Calcaneal spur, right foot; M77.32 Calcaneal spur, left foot; E11.9 Type 2 diabetes mellitus without complications; F17.200 Nicotine dependence, unspecified, uncomplicated; Z88.0 Allergy status to penicillin; Z88.1 Allergy status to other antibiotic agents; Z88.2 Allergy status to sulfonamides; Z88.8 Allergy status to other drugs, medicaments and biological substances; Z91.040 Latex allergy status; Z91.09 Other allergy status, other than to drugs and biological substances; Z86.73 Personal history of transient ischemic attack (TIA), and cerebral infarction without residual deficits
CPT/HCPCS: 99283

== ENCOUNTER 2024-10-12 18:21 | Emergency (ER) | payer OTHER ==
[2024-10-12 18:29] LABS: Glucose,Whole Blood 336 mg/dL (70-110)
--- NOTE | 2024-10-12 19:16 | ED ---
General Adult HPI - General Chief complaint: Nausea/Vomiting/Diarrhea Stated complaint: high sugar Time Seen by Provider: 10/12/24 18:31 Source: patient Mode of arrival: ambulatory Limitations: no limitations - History of Present Illness Initial comments: Dictation was produced using MPSTOR dictation software. please excuse any grammatical, word or spelling errors. Chief Complaint: 54-year-old male with hyperglycemia History of Present Illness: Patient is a 54-year-old male has history of diabetes presents with hyperglycemia. Patient states that he gets little nauseated and lightheaded when his glucose gets elevated. Patient has no other complaints. The ROS documented in this emergency department record has been reviewed and confirmed by me. Those systems with pertinent positive or negative responses have been documented in the HPI. All other systems are other negative and/or noncontributory. - Related Data Home Medications Medication Instructions Recorded Confirmed Insulin Lispro [humaLOG Kwikpen] See Protocol SQ AC-TID 08/23/24 09/30/24 Albuterol Nebulized [Ventolin 2.5 mg INHALATION RT-Q6H PRN 09/30/24 09/30/24 Nebulized] Capsaicin Cream [Trixaicin Cream] 1 applic TOPICAL TID PRN 09/30/24 09/30/24 Fluticasone Furoate [Flonase 1 spray EA NOSTRIL BID PRN 09/30/24 09/30/24 Sensimist] Insulin Glargine,Hum.rec.anlog 15 unit SQ HS 09/30/24 09/30/24 [Insulin Glargine Solostar] Ketorolac [Toradol] 10 mg PO Q6HR PRN 09/30/24 09/30/24 Nicotine Polacrilex [Nicorette] 2 mg BC DIRECTED PRN 09/30/24 09/30/24 Ondansetron [Zofran] 4 mg PO Q8HR PRN 09/30/24 09/30/24 traZODone HCL [Desyrel] 100 mg PO HS 09/30/24 09/30/24 Previous Rx's Medication Instructions Recorded Aspirin EC [Ecotrin Low Dose] 81 mg PO DAILY 30 Days #30 tab 07/13/24 Pantoprazole [Protonix] 40 mg PO DAILY 30 Days #30 tab 07/13/24 Budesonide/Formoterol Fumarate 2 puff INHALATION RT-BID 30 Days 08/15/24 [Symbicort 80-4.5 Mcg Inhaler] #1 each Atorvastatin [Lipitor] 10 mg PO HS 30 Days #30 tab 09/19/24 Dapagliflozin Propanediol [Farxiga] 10 mg PO DAILY 30 Days #30 tab 09/19/24 Sertraline [Zoloft] 100 mg PO DAILY 30 Days #30 tab 09/19/24 busPIRone HCl [Buspar] 5 mg PO BID 30 Days #60 tab 09/19/24 ARIPiprazole IM SYRINGE [Abilify 400 mg IM QMONTHLY #1 each 10/04/24 Maintena Syringe] ARIPiprazole [Abilify] 15 mg PO DAILY 13 Days #13 tab 10/04/24 Allergies Allergy/AdvReac Type Severity Reaction Status Date / Time dicyclomine HCl [From Bentyl] Allergy Unknown Dyspnea Verified 10/12/24 18:26 latex Allergy Unknown Rash/Hives Verified 10/12/24 18:26 Benzoate Analogues Allergy Unknown Verified 10/12/24 18:26 benzonatate Allergy Unknown Verified 10/12/24 18:26 nitrofurantoin Allergy Nausea Verified 10/12/24 18:26 [From Macrobid] Penicillins Allergy "[place] Verified 10/12/24 18:26 funny" adhesive AdvReac Unknown Itching Verified 10/12/24 18:26 ciprofloxacin AdvReac Unknown Nausea Verified 10/12/24 18:26 Macrolide Antibiotics AdvReac Unknown Nausea Verified 10/12/24 18:26 sulfamethoxazole AdvReac Unknown Unknown Verified 10/12/24 18:26 [From Bactrim] trimethoprim [From Bactrim] AdvReac Unknown Unknown Verified 10/12/24 18:26 diphenhydramine AdvReac Confusion Verified 10/12/24 18:26 [From Benadryl] Review of Systems ROS Statement: Those systems with pertinent positive or pertinent negative responses have been documented in the HPI. ROS Other: All systems not noted in ROS Statement are negative. Past Medical History Past Medical History: Asthma, Chest Pain / Angina, COPD, CVA/TIA, Diabetes Mellitus, GERD/Reflux, Hearing Disorder / Deafness, Hyperlipidemia, Hypertension, Liver Disease, Osteoarthritis (OA), Pneumonia, Seizure Disorder, Sleep Apnea/CPAP/BIPAP Additional Past Medical History / Comment(s): states CVA at 35 yrs old, no weakness @ this time. states seizure at 35 yrs old., DDD- back & neck pain., carpal tunnel syndrome. Has SCS public guardian. History of Any Multi-Drug Resistant Organisms: Other MDRO Past Surgical History: Heart Catheterization, Orthopedic Surgery Additional Past Surgical History / Comment(s): Cysts removed, left thumb surgery, colonoscopy 08/24/2019. Skin tags removed from both eyes. Past Anesthesia/Blood Transfusion Reactions: Motion Sickness, Postoperative Nausea & Vomiting (PONV) Past Psychological History: Anxiety, Bipolar, Depression Smoking Status: Current every day smoker Past Alcohol Use History: Abuse Past Drug Use History: None Reported - Past Family History Brother(s) Family Medical History: Diabetes Mellitus Additional Family Medical History / Comment(s): Patient has 2 brothers. One from complications from diabetes. The second is alive with diabetes. Sister(s) Family Medical History: Cancer Additional Family Medical History / Comment(s): Patient has one sister with breast cancer. Patient does not have any children. Father Family Medical History: Cancer Additional Family Medical History / Comment(s): Father in his 40s or 50s from colon cancer. Mother Family Medical History: Cancer Additional Family Medical History / Comment(s): Mother at age 68 from lung cancer. General Exam - General Exam Comments Initial Comments: PHYSICAL EXAM: General Impression: Alert and oriented x3, not in acute distress HEENT: Normocephalic atraumatic, extra-ocular movements intact, pupils equal and reactive to light bilaterally, mucous membranes moist. Cardiovascular: Heart regular rate and rhythm Chest: Able to complete full sentences, no retractions, no tachypnea Abdomen: abdomen soft, non-tender, non-distended, no organomegaly Musculoskeletal: Pulses present and equal in all extremities, no peripheral edema Motor: no focal deficits noted Neurological: CN II-XII grossly intact, no focal motor or sensory deficits noted Skin: Intact with no visualized rashes Psych: Normal affect and mood Limitations: no limitations Course Vital Signs 10/12/24 10/12/24 18:23 19:34 Temperature 97.8 F 97.9 F Pulse Rate 82 74 Respiratory 17 18 Rate Blood Pressure 158/91 128/89 O2 Sat by Pulse 98 97 Oximetry Medical Decision Making - Medical Decision Making Was pt. sent in by a medical professional or institution (, PA, CEILING CLEANER, urgent care, hospital, or penitentiary...) When possible be specific @ -No Did you speak to anyone other than the patient for history (EMS, parent, family, police, friend...)? What history was obtained from this source @ -No Did you review nursing and triage notes (agree or disagree)? Why? @ -I reviewed and agree with nursing and triage notes Were old charts reviewed (outside hosp., previous admission, EMS record, old EKG, old radiological studies, urgent care reports/EKG's, penitentiary records)? Report findings @ -No old charts were reviewed Differential Diagnosis (chest pain, altered mental status, abdominal pain women, abdominal pain men, vaginal bleeding, musculoskeletal, weakness, fever, dyspnea, syncope, headache, dizziness, GI bleed, back pain, seizure, CVA, palpatations, mental health)? @ -DKA, hyperosmolar coma, hyper glycemia EKG interpreted by me (3pts min.). @ -None done X-rays interpreted by me (1pt min.). @ -None done CT interpreted by me (1pt min.). @ -None done U/S interpreted by me (1pt. min.). @ -None done What testing was considered but not performed or refused? (CT, X-rays, U/S, labs)? Why? @ -None What meds were considered but not given or refused? Why? @ -None Was smoking cessation discussed for >3mins.? @ -No Were there social determinants of health that impacted care today? How? (Homelessness, low income, unemployed, alcoholism, drug addiction, transportation, low edu. Level, literacy, decrease access to med. care, long-term, rehab)? @ -No Was there de-escalation of care discussed even if they declined (Discuss DNR or withdrawal of care, Hospice)? DNR status @ -No What co-morbidities impacted this encounter? (DM, HTN, Smoking, COPD, CAD, Cancer, CVA, ARF, Chemo, Hep., AIDS, mental health diagnosis, sleep apnea, morbid obesity)? @ -None Was patient admitted / discharged? Hospital course, mention meds given and route, prescriptions, significant lab abnormalities, going to OR and other pertinent info. @ -54-year-old male well-known to the emergency department presents to the emergency department for hyperglycemia. Vital signs upon arrival are within acceptable limits. Glucose level is 336. Patient given IV fluids and insulin. Blood glucose improved. Patient discharged. Did you discuss the management of the patient with other professionals (professionals i.e. , PA, CEILING CLEANER, lab, RT, psych nurse, social work faculty member, peanut butter maker, teacher, equal employment opportunity officer, case making machine operator)? Give summary @ -No Was critical care preformed (if so, how long)? @ -No Undiagnosed new problem with uncertain prognosis? @ -No Drug Therapy requiring intensive monitoring for toxicity (Heparin, Nitro, Insulin, Cardizem)? @ -No Were any procedures done? @ -No Diagnosis/symptom? Acute, or Chronic, or Acute on Chronic? Uncomplicated (without systemic symptoms) or Complicated (systemic symptoms)? @ -Hyperglycemia Side effects of treatment? @ -No Exacerbation, Progression, or Severe Exacerbation? @ -No Poses a threat to life or bodily function? How? (Chest pain, [place], [place], pneumonia, PE, COPD, DKA, ARF, appy, cholecystitis, CVA, Diverticulitis, Homicidal, Suicidal, threat to staff... and all critical care pts) @ -No - Lab Data Lab Results 10/12/24 Range/Units 18:27 POC Glucose (mg/dL) 336 H (70-110) mg/dL POC Glu Mail Deliverer JEANCARLOS Aguiar Disposition Clinical Impression: Hyperglycemia Disposition: HOME SELF-CARE Condition: Fair Instructions (If sedation given, give patient instructions): Diabetic Hyperglycemia (ED) Is patient prescribed a controlled substance at d/c from ED?: No Referrals: None,Stated [Primary Care Provider] - 1-2 days Time of Disposition: 19:46
[2024-10-12 19:36] VITALS: RESP 18
[2024-10-12 19:57] LABS: Glucose,Whole Blood 328 mg/dL (70-110)
[2024-10-12] MEDS: SODIUM CHLORIDE 0.9% 1,000 ML IV STA (20:03)
[2024-10-12] MEDS: INSULIN REGULAR 100 UNIT/ML VIAL (IV) IV ONE (20:04)
[2024-10-12 22:37] VITALS: BP 128/85; PULSE 77; TEMP 98
== END 2024-10-12 22:37 | disposition home or self-care (01) ==
LOC: EC 18:21
DX: E11.65 Type 2 diabetes mellitus with hyperglycemia (principal); F17.200 Nicotine dependence, unspecified, uncomplicated; Z79.4 Long term (current) use of insulin; Z88.0 Allergy status to penicillin; Z88.1 Allergy status to other antibiotic agents; Z88.2 Allergy status to sulfonamides; Z88.8 Allergy status to other drugs, medicaments and biological substances; Z91.040 Latex allergy status; Z86.73 Personal history of transient ischemic attack (TIA), and cerebral infarction without residual deficits
CPT/HCPCS: 36415; 96360; 99284

== ENCOUNTER 2024-10-13 12:48 | Emergency (ER) | payer OTHER ==
[2024-10-13 13:02] VITALS: BP 127/78; PULSE 70; RESP 18; TEMP 98.1
--- NOTE | 2024-10-13 13:16 | ED ---
Psych HPI - General Source: patient, RN notes reviewed Mode of arrival: ambulatory Limitations: no limitations - History of Present Illness MD Complaint: suicidal ideation, feels depressed <Isabelle Hill - Last Filed: 10/13/24 15:12> <Sean Smith - Last Filed: 10/13/24 16:14> - General Chief Complaint: Psychiatric Symptoms Stated Complaint: mental health Time Seen by Provider: 10/13/24 13:04 - History of Present Illness Initial Comments: This is a 54-year-old male who presents to the emergency department for psychiatric evaluation. Patient states that he got into a family dispute last night over not wanting to take any of his medication. States that he is having worsening depression with suicidal ideations. His suicidal plan is to stop taking all of his medication and his insulin. States that he is just tired of life. (Isabelle Hill) - Related Data Home Medications Medication Instructions Recorded Confirmed Insulin Lispro [humaLOG Kwikpen] See Protocol SQ AC-TID 08/23/24 09/30/24 Albuterol Nebulized [Ventolin 2.5 mg INHALATION RT-Q6H PRN 09/30/24 09/30/24 Nebulized] Capsaicin Cream [Trixaicin Cream] 1 applic TOPICAL TID PRN 09/30/24 09/30/24 Fluticasone Furoate [Flonase 1 spray EA NOSTRIL BID PRN 09/30/24 09/30/24 Sensimist] Insulin Glargine,Hum.rec.anlog 15 unit SQ 09/30/24 09/30/24 [Insulin Glargine Solostar] Ketorolac [Toradol] 10 mg PO Q6HR PRN 09/30/24 09/30/24 Nicotine Polacrilex [Nicorette] 2 mg BC DIRECTED PRN 09/30/24 09/30/24 Ondansetron [Zofran] 4 mg PO Q8HR PRN 09/30/24 09/30/24 traZODone HCL [Desyrel] 100 mg PO HS 09/30/24 09/30/24 Previous Rx's Medication Instructions Recorded Aspirin EC [Ecotrin Low Dose] 81 mg PO DAILY 30 Days #30 tab 07/13/24 Pantoprazole [Protonix] 40 mg PO DAILY 30 Days #30 tab 07/13/24 Budesonide/Formoterol Fumarate 2 puff INHALATION RT-BID 30 Days 08/15/24 [Symbicort 80-4.5 Mcg Inhaler] #1 each Atorvastatin [Lipitor] 10 mg PO HS 30 Days #30 tab 09/19/24 Dapagliflozin Propanediol [Farxiga] 10 mg PO DAILY 30 Days #30 tab 09/19/24 Sertraline [Zoloft] 100 mg PO DAILY 30 Days #30 tab 09/19/24 busPIRone HCl [Buspar] 5 mg PO BID 30 Days #60 tab 09/19/24 ARIPiprazole IM SYRINGE [Abilify 400 mg IM QMONTHLY #1 each 10/04/24 Maintena Syringe] ARIPiprazole [Abilify] 15 mg PO DAILY 13 Days #13 tab 10/04/24 Allergies Allergy/AdvReac Type Severity Reaction Status Date / Time dicyclomine HCl [From Bentyl] Allergy Unknown Dyspnea Verified 10/13/24 13:02 latex Allergy Unknown Rash/Hives Verified 10/13/24 13:02 Benzoate Analogues Allergy Unknown Verified 10/13/24 13:02 benzonatate Allergy Unknown Verified 10/13/24 13:02 nitrofurantoin Allergy Nausea Verified 10/13/24 13:02 [From Macrobid] Penicillins Allergy "Home Verified 10/13/24 13:02 funny" adhesive AdvReac Unknown Itching Verified 10/13/24 13:02 ciprofloxacin AdvReac Unknown Nausea Verified 10/13/24 13:02 Macrolide Antibiotics AdvReac Unknown Nausea Verified 10/13/24 13:02 sulfamethoxazole AdvReac Unknown Unknown Verified 10/13/24 13:02 [From Bactrim] trimethoprim [From Bactrim] AdvReac Unknown Unknown Verified 10/13/24 13:02 diphenhydramine AdvReac Confusion Verified 10/13/24 13:02 [From Benadryl] Review of Systems ROS Other: All systems not noted in ROS Statement are negative. <Isabelle Hill - Last Filed: 10/13/24 15:12> ROS Other: All systems not noted in ROS Statement are negative. <Sean Smith - Last Filed: 10/13/24 16:14> ROS Statement: Those systems with pertinent positive or pertinent negative responses have been documented in the HPI. Past Medical History Past Medical History: Asthma, Chest Pain / Angina, COPD, CVA/TIA, Diabetes Mellitus, GERD/Reflux, Hearing Disorder / Deafness, Hyperlipidemia, Hypertension, Liver Disease, Osteoarthritis (OA), Pneumonia, Seizure Disorder, Sleep Apnea/CPAP/BIPAP Additional Past Medical History / Comment(s): states CVA at 35 yrs old, no weakness @ this time. states seizure at 35 yrs old., DDD- back & neck pain., carpal tunnel syndrome. Has [employer] public guardian. History of Any Multi-Drug Resistant Organisms: Other MDRO Past Surgical History: Heart Catheterization, Orthopedic Surgery Additional Past Surgical History / Comment(s): Cysts removed, left thumb surgery, colonoscopy 08/24/2019. Skin tags removed from both eyes. Past Anesthesia/Blood Transfusion Reactions: Motion Sickness, Postoperative Nausea & Vomiting (PONV) Past Psychological History: Anxiety, Bipolar, Depression Smoking Status: Current every day smoker Past Alcohol Use History: Abuse Past Drug Use History: None Reported - Past Family History Brother(s) Family Medical History: Diabetes Mellitus Additional Family Medical History / Comment(s): Patient has 2 brothers. One from complications from diabetes. The second is alive with diabetes. Sister(s) Family Medical History: Cancer Additional Family Medical History / Comment(s): Patient has one sister with breast cancer. Patient does not have any children. Father Family Medical History: Cancer Additional Family Medical History / Comment(s): Father in his 40s or 50s from colon cancer. Mother Family Medical History: Cancer Additional Family Medical History / Comment(s): Mother at age 68 from lung cancer. <Isabelle Hill - Last Filed: 10/13/24 15:12> General Exam Limitations: no limitations General appearance: alert, in no apparent distress Head exam: Present: atraumatic, normocephalic, normal inspection Respiratory exam: Present: normal lung sounds bilaterally. Absent: respiratory distress, wheezes, rales, rhonchi, stridor Cardiovascular Exam: Present: regular rate, normal rhythm Neurological exam: Present: alert, oriented X3, CN II-XII intact Psychiatric exam: Present: depressed, flat affect, suicidal ideation. Absent: homicidal ideation Skin exam: Present: warm, dry, intact, normal color. Absent: rash <Bull Hillllian - Last Filed: 10/13/24 15:12> Course Vital Signs 10/13/24 12:58 Temperature 98.1 F Pulse Rate 70 Respiratory 18 Rate Blood Pressure 127/78 O2 Sat by Pulse 98 Oximetry Medical Decision Making <JebtaurusBull mckeonIsabelle - Last Filed: 10/13/24 15:12> - Lab Data Result diagrams: 10/13/24 14:43 10/13/24 14:54 <Sean Smith - Last Filed: 10/13/24 16:14> - Medical Decision Making This is a 54-year-old male who presents to the emergency department for psychiatric evaluation. Was pt. sent in by a medical professional or institution? @ -No Did you speak to anyone other than the patient for history? @ -No Did you review nursing and triage notes? @ -Yes, and I agree, it is accurate with regards to the patient's symptoms. Were old charts reviewed? @ -No Differential Diagnosis? @ -Differential Mental Health Depression, anxiety, bipolar, psychosis, schizophrenia, borderline personality, situational depression, adjustment disorder, behavioral disorder, brain tumor, malingering, substance abuse, encephalopathy, medication reaction, dementia, hypothyroidism, degenerative neurologic disorder, lupus.... This is not meant to be all-inclusive list EKG interpreted by me (3pts min.)? @ -Not obtained X-rays interpreted by me (1pt min.)? @ -Not obtained CT interpreted by me (1pt min.)? @ -Not obtained U/S interpreted by me (1pt. min.)? @ -Not obtained What testing was considered but not performed? (CT, X-rays, U/S, labs)? Why? @ -None What meds were considered but not given? Why? @ -None Did you discuss the management of the patient with other professionals? @ -No Did you reconcile home meds? @ -No Was smoking cessation discussed for >3mins.? @ -No Was critical care preformed (if so, how long)? @ -No Were there social determinants of health that impacted care today? How? (Homelessness, low income, unemployed, alcoholism, drug addiction, transportatio n, low edu. Level, literacy, decrease access to med. care, residential, rehab)? @ -No Was there de-escalation of care discussed even if they declined? (Discuss DNR or withdrawal of care, Hospice)? @ -No What co-morbidities impacted this encounter? (DM, HTN, Smoking, COPD, CAD, Cancer, CVA, Hep., AIDS, mental health diagnosis, sleep apnea, morbid obesity)? @ -Schizoaffective disorder, DM Was patient admitted / discharged? @ -Patient's BAT was 0.0 and he was cleared for EPS evaluation. UDS negative. UA negative for signs of infection. EPS evaluated the patient and advised that he meets criteria for inpatient psychiatric hospitalization due to active suicidal ideations with a plan. However, he has been hospitalized on our unit several times and continues to return. There is concern that we are not thera peutic enough for the patient and he will require transfer to another facility. ED attending will complete clinical CERT. However, if they cannot find placement within 24 hours he will likely be admitted to our mental health unit. Undiagnosed new problem with uncertain prognosis? @ -None Drug Therapy requiring intensive monitoring for toxicity (Heparin, Nitro, Insulin, Cardizem)? @ -None Were any procedures done? @ -None Diagnosis/symptom? @ -Suicidal ideations Acute, or Chronic, or Acute on Chronic? @ -Acute Uncomplicated (without systemic symptoms) or Complicated (systemic symptoms)? @ -Complicated Side effects of treatment? @ -None Exacerbation, Progression, or Severe Exacerbation] @ -Not applicable Poses a threat to life or bodily function? @ -Yes, can lead to (Isabelle Hill) I saw the patient, interviewed the patient and performed targeted physical exam, agree with above, I filed a clinical certificate. SUPERVISORY NOTE: I personally interviewed the patient, reviewed documentation and results, performed physical exam and MDM in its entirety, constituting majority of visit (Sean Smith) - Lab Data Lab Results 10/13/24 10/13/24 10/13/24 Range/Units 13:15 13:56 14:43 WBC 9.40 (4.50-10.00) 10*3/uL RBC 5.35 (4.40-5.60) 10*6/uL Hgb 15.8 (13.0-17.0) g/dL Hct 44.4 (39.6-50.0) % MCV 83.0 (80.0-97.0) fL MCH 29.5 (27.0-32.0) pg MCHC 35.6 (32.0-37.0) g/dL Plt Count 167 (140-440) 10*3/uL MPV 9.3 L (9.5-12.2) fL Immature Gran % (Auto) 2.2 % Neutrophils % 72.5 % Lymphocytes % 15.2 % Monocytes % 6.1 % Eosinophils % 3.7 % Basophils % 0.3 % Immature Gran # 0.21 H (0.00-0.04) 10*3/uL Neutrophils # 6.81 (1.80-7.70) 10*3/uL Lymphocytes # 1.43 (0.90-5.00) 10*3/uL Monocytes # 0.57 (0.20-1.00) 10*3/uL Eosinophils # 0.35 (0.04-0.35) 10*3/uL Basophils # 0.03 (0.00-0.10) 10*3/uL Sodium (137-145) mmol/L Potassium (3.5-5.1) mmol/L Chloride (98-107) mmol/L Carbon Dioxide (22-30) mmol/L Anion Gap mmol/L BUN (9-20) mg/dL Creatinine (0.66-1.25) mg/dL Est GFR (CKD-EPI)AfAm (>60 ml/min/1.73 sqM) Est GFR (CKD-EPI)NonAf (>60 ml/min/1.73 sqM) Glucose (74-99) mg/dL POC Glucose (mg/dL) 151 H (70-110) mg/dL POC Glu Inside Sales Engineer ID [place] Greg Calcium (8.4-10.2) mg/dL Total Bilirubin (0.2-1.3) mg/dL AST (17-59) U/L ALT (4-49) U/L Alkaline Phosphatase (38-126) U/L Total Protein (6.3-8.2) g/dL Albumin (3.5-5.0) g/dL Urine Color Colorless Urine Appearance Clear (Clear) Urine pH 7.0 (5.0-8.0) Ur Specific Bowie 1.033 (1.001-1.035) Urine Protein Negative (Negative) Urine Glucose (UA) 4+ H (Negative) Urine Ketones Negative (Negative) Urine Blood Negative (Negative) Urine Nitrite Negative (Negative) Urine Bilirubin Negative (Negative) Urine Urobilinogen <2.0 (<2.0) mg/dL Ur Leukocyte Esterase Negative (Negative) Urine Opiates Screen Not Detected (NotDetected) Ur Oxycodone Screen Not Detected (NotDetected) Urine Methadone Screen Not Detected (NotDetected) Ur Barbiturates Screen Not Detected (NotDetected) U Tricyclic Antidepress Not Detected (NotDetected) Ur Phencyclidine Scrn Not Detected (NotDetected) Ur Amphetamines Screen Not Detected (NotDetected) U Methamphetamines Scrn Not Detected (NotDetected) U Benzodiazepines Scrn Not Detected (NotDetected) Urine Cocaine Screen Not Detected (NotDetected) U Marijuana (THC) Screen Not Detected (NotDetected) SARS-CoV-2 (PCR) (Not Detectd) 10/13/24 10/13/24 Range/Units 14:52 14:54 WBC (4.50-10.00) 10*3/uL RBC (4.40-5.60) 10*6/uL Hgb (13.0-17.0) g/dL Hct (39.6-50.0) % MCV (80.0-97.0) fL MCH (27.0-32.0) pg MCHC (32.0-37.0) g/dL Plt Count (140-440) 10*3/uL MPV (9.5-12.2) fL Immature Gran % (Auto) % Neutrophils % % Lymphocytes % % Monocytes % % Eosinophils % % Basophils % % Immature Gran # (0.00-0.04) 10*3/uL Neutrophils # (1.80-7.70) 10*3/uL Lymphocytes # (0.90-5.00) 10*3/uL Monocytes # (0.20-1.00) 10*3/uL Eosinophils # (0.04-0.35) 10*3/uL Basophils # (0.00-0.10) 10*3/uL Sodium 139 (137-145) mmol/L Potassium 3.7 (3.5-5.1) mmol/L Chloride 109 H (98-107) mmol/L Carbon Dioxide 23 (22-30) mmol/L Anion Gap 7 mmol/L BUN 11 (9-20) mg/dL Creatinine 0.57 L (0.66-1.25) mg/dL Est GFR (CKD-EPI)AfAm >90 (>60 ml/min/1.73 sqM) Est GFR (CKD-EPI)NonAf >90 (>60 ml/min/1.73 sqM) Glucose 119 H (74-99) mg/dL POC Glucose (mg/dL) (70-110) mg/dL POC Glu Inside Sales Engineer ID Calcium 9.6 (8.4-10.2) mg/dL Total Bilirubin 0.5 (0.2-1.3) mg/dL AST 29 (17-59) U/L ALT 48 (4-49) U/L Alkaline Phosphatase 87 (38-126) U/L Total Protein 6.2 L (6.3-8.2) g/dL Albumin 4.1 (3.5-5.0) g/dL Urine Color Urine Appearance (Clear) Urine pH (5.0-8.0) Ur Specific Bowie (1.001-1.035) Urine Protein (Negative) Urine Glucose (UA) (Negative) Urine Ketones (Negative) Urine Blood (Negative) Urine Nitrite (Negative) Urine Bilirubin (Negative) Urine Urobilinogen (<2.0) mg/dL Ur Leukocyte Esterase (Negative) Urine Opiates Screen (NotDetected) Ur Oxycodone Screen (NotDetected) Urine Methadone Screen (NotDetected) Ur Barbiturates Screen (NotDetected) U Tricyclic Antidepress (NotDetected) Ur Phencyclidine Scrn (NotDetected) Ur Amphetamines Screen (NotDetected) U Methamphetamines Scrn (NotDetected) U Benzodiazepines Scrn (NotDetected) Urine Cocaine Screen (NotDetected) U Marijuana (THC) Screen (NotDetected) SARS-CoV-2 (PCR) Not Detected (Not Detectd) Disposition <Isabelle Hill - Last Filed: 10/13/24 15:12> <Sean Smith - Last Filed: 10/13/24 16:14> Clinical Impression: Suicidal ideation, Schizoaffective disorder, depressive type Disposition: TRANSFER TO PSYCH HOSP/UNIT Referrals: Nonstaff,Physician [Primary Care Provider] - 1-2 days
[2024-10-13 13:17] LABS: Glucose,Whole Blood 151 mg/dL (70-110)
[2024-10-13] MEDS: LORazepam 1 MG TAB PO STA (13:48)
[2024-10-13 14:13] LABS: Appearance,Urine Clear (Clear); Bilirubin,Urine Negative (Negative); Blood,Urine Negative (Negative); Color,Urine Colorless; Glucose,Urine (UA) 4+ (Negative); Ketones,Urine Negative (Negative); Leukocyte Esterase,Urine Negative (Negative); Nitrite,Urine Negative (Negative); Protein,Urine Negative (Negative); Specific Gravity,Urine 1.033 (1.001-1.035); Urobilinogen,Urine <2.0 mg/dL (<2.0)
[2024-10-13 14:27] LABS: Amphetamine Screen,Urine Not Detected (NotDetected); Barbiturate Screen,Urine Not Detected (NotDetected); Benzodiazepines Screen,Urine Not Detected (NotDetected); Cocaine Screen,Urine Not Detected (NotDetected); Methadone Screen, Urine Not Detected (NotDetected); Opiate Screen,Urine Not Detected (NotDetected); Oxycodone Screen, Urine Not Detected (NotDetected); Phencyclidine Screen,Urine Not Detected (NotDetected); Tricyclic Antidepressant,Urine Not Detected (NotDetected); Urn Cannabinoid Scrn Not Detected (NotDetected)
[2024-10-13 15:04] LABS: Basophils # (A) 0.03 10*3/uL (0.00-0.10); Basophils % (A) 0.3 %; Eosinophils # (A) 0.35 10*3/uL (0.04-0.35); Eosinophils % (A) 3.7 %; HCT 44.4 % (39.6-50.0); HGB 15.8 g/dL (13.0-17.0); Lymphocytes # (A) 1.43 10*3/uL (0.90-5.00); Lymphocytes % (A) 15.2 %; MCH 29.5 pg (27.0-32.0); MCHC 35.6 g/dL (32.0-37.0); Mean Platelet Volume 9.3 fL (9.5-12.2); Monocytes # (A) 0.57 10*3/uL (0.20-1.00); Monocytes % (A) 6.1 %; Neutrophils # (A) 6.81 10*3/uL (1.80-7.70); Neutrophils % (A) 72.5 %; Platelet Count 167 10*3/uL (140-440); RBC 5.35 10*6/uL (4.40-5.60); RDW 13.7 % (11.5-14.5)
[2024-10-13 15:17] LABS: ALT 48 U/L (4-49); AST 29 U/L (17-59); African American GFR (CKD) >90 (>60 ml/min/1.73 sqM); Albumin 4.1 g/dL (3.5-5.0); Alkaline Phosphatase 87 U/L (38-126); Anion Gap 7 mmol/L; Blood Urea Nitrogen 11 mg/dL (9-20); Calcium 9.6 mg/dL (8.4-10.2); Carbon Dioxide 23 mmol/L (22-30); Chloride 109 mmol/L (98-107); Glucose 119 mg/dL (74-99); Non-African American GFR(CKD) >90 (>60 ml/min/1.73 sqM); Potassium 3.7 mmol/L (3.5-5.1); Sodium 139 mmol/L (137-145); Total Bilirubin 0.5 mg/dL (0.2-1.3); Total Protein 6.2 g/dL (6.3-8.2)
[2024-10-13] MEDS: NICOTINE 14MG/24HR PATCH TRANSDERM STA (17:36)
[2024-10-13 19:58] LABS: Glucose,Whole Blood 178 mg/dL (70-110)
== END 2024-10-13 20:25 ==
LOC: EC 12:48
DX: F25.1 Schizoaffective disorder, depressive type (principal); R45.851 Suicidal ideations; E11.9 Type 2 diabetes mellitus without complications; F17.200 Nicotine dependence, unspecified, uncomplicated; Z79.4 Long term (current) use of insulin; Z88.0 Allergy status to penicillin; Z88.1 Allergy status to other antibiotic agents; Z88.2 Allergy status to sulfonamides; Z88.8 Allergy status to other drugs, medicaments and biological substances; Z91.040 Latex allergy status; Z11.52 Encounter for screening for COVID-19; Z86.73 Personal history of transient ischemic attack (TIA), and cerebral infarction without residual deficits
CPT/HCPCS: 82075; 36415; 80053; 85025; 81003; 80306; 87635; 99285; S4990

== ENCOUNTER 2024-10-26 15:54 | Emergency (ER) | payer OTHER ==
[2024-10-26 16:00] VITALS: TEMP 98.2
--- NOTE | 2024-10-26 16:56 | ED ---
General Adult HPI - General Chief complaint: Recheck/Abnormal Lab/Rx Stated complaint: Stomachache/Nausea/Dizzy Time Seen by Provider: 10/26/24 16:09 Source: patient, RN notes reviewed Mode of arrival: ambulatory Limitations: no limitations - History of Present Illness Initial comments: 54-year-old male who is well-known to emergency department presenting with request for medication refill. Patient states that he was discharged from [facility] recently where he was started on new medications. He states that he is out of his normal medications however does not remember the name or dosage of these. He states that he feels nauseated has mild abdominal pain. - Related Data Home Medications Medication Instructions Recorded Confirmed Insulin Lispro [humaLOG Kwikpen] See Protocol SQ AC-TID 08/23/24 10/13/24 Albuterol Nebulized [Ventolin 2.5 mg INHALATION RT-Q6H PRN 09/30/24 10/13/24 Nebulized] Capsaicin Cream [Trixaicin Cream] 1 applic TOPICAL TID PRN 09/30/24 10/13/24 Fluticasone Furoate [Flonase 1 spray EA NOSTRIL BID PRN 09/30/24 10/13/24 Sensimist] Insulin Glargine,Hum.rec.anlog 15 unit SQ HS 09/30/24 10/13/24 [Insulin Glargine Solostar] Nicotine Polacrilex [Nicorette] 2 mg BC DIRECTED PRN 09/30/24 10/13/24 Ondansetron [Zofran] 4 mg PO Q8HR PRN 09/30/24 10/13/24 traZODone HCL [Desyrel] 100 mg PO HS 09/30/24 10/13/24 Ammonium Lactate [Amlactin] 1 applic TOPICAL DAILY 10/13/24 10/13/24 Previous Rx's Medication Instructions Recorded Aspirin EC [Ecotrin Low Dose] 81 mg PO DAILY 30 Days #30 tab 07/13/24 Pantoprazole [Protonix] 40 mg PO DAILY 30 Days #30 tab 07/13/24 Budesonide/Formoterol Fumarate 2 puff INHALATION RT-BID 30 Days 08/15/24 [Symbicort 80-4.5 Mcg Inhaler] #1 each Atorvastatin [Lipitor] 10 mg PO HS 30 Days #30 tab 09/19/24 Dapagliflozin Propanediol [Farxiga] 10 mg PO DAILY 30 Days #30 tab 09/19/24 Sertraline [Zoloft] 100 mg PO DAILY 30 Days #30 tab 09/19/24 busPIRone HCl [Buspar] 5 mg PO BID 30 Days #60 tab 09/19/24 ARIPiprazole IM SYRINGE [Abilify 400 mg IM QMONTHLY #1 each 10/04/24 Maintena Syringe] ARIPiprazole [Abilify] 15 mg PO DAILY 13 Days #13 tab 10/04/24 Allergies Allergy/AdvReac Type Severity Reaction Status Date / Time dicyclomine HCl [From Bentyl] Allergy Unknown Dyspnea Verified 10/26/24 15:59 latex Allergy Unknown Rash/Hives Verified 10/26/24 15:59 Benzoate Analogues Allergy Unknown Verified 10/26/24 15:59 benzonatate Allergy Unknown Verified 10/26/24 15:59 nitrofurantoin Allergy Nausea Verified 10/26/24 15:59 [From Macrobid] Penicillins Allergy "[place] Verified 10/26/24 15:59 funny" adhesive AdvReac Unknown Itching Verified 10/26/24 15:59 ciprofloxacin AdvReac Unknown Nausea Verified 10/26/24 15:59 Macrolide Antibiotics AdvReac Unknown Nausea Verified 10/26/24 15:59 sulfamethoxazole AdvReac Unknown Unknown Verified 10/26/24 15:59 [From Bactrim] trimethoprim [From Bactrim] AdvReac Unknown Unknown Verified 10/26/24 15:59 diphenhydramine AdvReac Confusion Verified 10/26/24 15:59 [From Benadryl] Review of Systems ROS Statement: Those systems with pertinent positive or pertinent negative responses have been documented in the HPI. ROS Other: All systems not noted in ROS Statement are negative. Past Medical History Past Medical History: Asthma, Chest Pain / Angina, COPD, CVA/TIA, Diabetes Mellitus, GERD/Reflux, Hearing Disorder / Deafness, Hyperlipidemia, Hypertension, Liver Disease, Osteoarthritis (OA), Pneumonia, Seizure Disorder, Sleep Apnea/CPAP/BIPAP Additional Past Medical History / Comment(s): states CVA at 35 yrs old, no weakness @ this time. states seizure at 35 yrs old., DDD- back & neck pain., carpal tunnel syndrome. Has [facility] public guardian. History of Any Multi-Drug Resistant Organisms: Other MDRO Past Surgical History: Heart Catheterization, Orthopedic Surgery Additional Past Surgical History / Comment(s): Cysts removed, left thumb surgery, colonoscopy 08/24/2019. Skin tags removed from both eyes. Past Anesthesia/Blood Transfusion Reactions: Motion Sickness, Postoperative Nausea & Vomiting (PONV) Past Psychological History: Anxiety, Bipolar, Depression Smoking Status: Current every day smoker Past Alcohol Use History: Abuse Past Drug Use History: None Reported - Past Family History Brother(s) Family Medical History: Diabetes Mellitus Additional Family Medical History / Comment(s): Patient has 2 brothers. One from complications from diabetes. The second is alive with diabetes. Sister(s) Family Medical History: Cancer Additional Family Medical History / Comment(s): Patient has one sister with breast cancer. Patient does not have any children. Father Family Medical History: Cancer Additional Family Medical History / Comment(s): Father in his 40s or 50s from colon cancer. Mother Family Medical History: Cancer Additional Family Medical History / Comment(s): Mother at age 68 from lung cancer. General Exam Limitations: no limitations General appearance: alert, in no apparent distress ENT exam: Present: normal exam, mucous membranes moist Neck exam: Present: normal inspection. Absent: tenderness, meningismus, lymphadenopathy Respiratory exam: Present: normal lung sounds bilaterally. Absent: respiratory distress, wheezes, rales, rhonchi, stridor Cardiovascular Exam: Present: regular rate, normal rhythm, normal heart sounds. Absent: systolic murmur, diastolic murmur, rubs, gallop, clicks GI/Abdominal exam: Present: soft, normal bowel sounds. Absent: distended, tenderness, guarding, rebound, rigid Extremities exam: Present: normal inspection, full ROM, normal capillary refill. Absent: tenderness, pedal edema, joint swelling, calf tenderness Back exam: Present: normal inspection Skin exam: Present: warm, dry, intact, normal color. Absent: rash Course Vital Signs 10/26/24 10/26/24 15:57 19:10 Temperature 98.2 F Pulse Rate 73 63 Respiratory 18 16 Rate Blood Pressure 144/87 134/88 O2 Sat by Pulse 97 96 Oximetry Medical Decision Making - Medical Decision Making Was pt. sent in by a medical professional or institution (, PA, ASSISTANT SALES CENTER MANAGER, urgent care, hospital, or [facility]...) When possible be specific @ -No Did you speak to anyone other than the patient for history (EMS, parent, family, police, friend...)? What history was obtained from this source @ -No Did you review nursing and triage notes (agree or disagree)? Why? @ -I reviewed and agree with nursing and triage notes Were old charts reviewed (outside hosp., previous admission, EMS record, old EKG, old radiological studies, urgent care reports/EKG's, [facility] records)? Report findings @ -No old charts were reviewed Differential Diagnosis (chest pain, altered mental status, abdominal pain women, abdominal pain men, vaginal bleeding, weakness, fever, dyspnea, syncope, headache, dizziness, GI bleed, back pain, seizure, CVA, palpatations, mental health, musculoskeletal)? @ -Differential Weakness: Hypoglycemia, shock, sepsis, hyponatremia, anemia, infection, HI, ETOH, adverse medicine reaction, overdose, stroke, this is not meant to be an all-inclusive list. EKG interpreted by me (3pts min.). @ -None X-rays interpreted by me (1pt min.). @ -None done CT interpreted by me (1pt min.). @ -None done U/S interpreted by me (1pt. min.). @ -None done What testing was considered but not performed or refused? (CT, X-rays, U/S, labs)? Why? @ -None What meds were considered but not given or refused? Why? @ -None Did you discuss the management of the patient with other professionals (professionals i.e. , PA, ASSISTANT SALES CENTER MANAGER, lab, RT, psych nurse, social service agency director, second class welder, teacher, housing management officer, case finisher)? Give summary @ -No Was smoking cessation discussed for >3mins.? @ -No Was critical care preformed (if so, how long)? @ -No Were there social determinants of health that impacted care today? How? (Homelessness, low income, unemployed, alcoholism, drug addiction, transportation, low edu. Level, literacy, decrease access to med. care, nursing home, rehab)? @ -No Was there de-escalation of care discussed even if they declined (Discuss DNR or withdrawal of care, Hospice)? DNR status @ -No What co-morbidities impacted this encounter? (DM, HTN, Smoking, COPD, CAD, Cancer, CVA, ARF, Chemo, Hep., AIDS, mental health diagnosis, sleep apnea, morbi d obesity)? @ -None Was patient admitted / discharged? Hospital course, mention meds given and route , prescriptions, significant lab abnormalities, going to OR and other pertinent info. @ -Discharge. 54-year-old male presents emergency department for encounter for medication refill. Overall patient is well-appearing. He is provided with IV fluids with concerns for clinical dehydration. Laboratory testing reveals urinalysis with 4+ glucose however CMP is unremarkable and CBC is unremarkable. On reevaluation after fluids and medications patient states that he is feeling well. Recommended follow-up with primary care provider for refill of medications. Case discussed with Dr. Mulligan Undiagnosed new problem with uncertain prognosis? @ -No Drug Therapy requiring intensive monitoring for toxicity (Heparin, Nitro, Insulin, Cardizem)? @ -No Were any procedures done? @ -No Diagnosis/symptom? @ -glucosuria Acute, or Chronic, or Acute on Chronic? @ -acute Uncomplicated (without systemic symptoms) or Complicated (systemic symptoms)? @ -uncomplicated Side effects of treatment? @ -No Exacerbation, Progression, or Severe Exacerbation? @ -No Poses a threat to life or bodily function? How? (Chest pain, USA, HI, pneumonia, PE, COPD, DKA, ARF, appy, cholecystitis, CVA, Diverticulitis, Homicidal, Suicidal, threat to staff... and all critical care pts) @ -No - Lab Data Result diagrams: 10/26/24 17:37 10/26/24 17:37 Lab Results 10/26/24 10/26/24 10/26/24 Range/Units 17:37 17:37 17:41 WBC 10.40 H (4.50-10.00) 10*3/uL RBC 5.35 (4.40-5.60) 10*6/uL Hgb 15.7 (13.0-17.0) g/dL Hct 43.6 (39.6-50.0) % MCV 81.5 (80.0-97.0) fL MCH 29.3 (27.0-32.0) pg MCHC 36.0 (32.0-37.0) g/dL Plt Count 191 (140-440) 10*3/uL MPV 9.3 L (9.5-12.2) fL Immature Gran % (Auto) 0.9 % Neutrophils % 77.4 % Lymphocytes % 12.8 % Monocytes % 5.9 % Eosinophils % 2.9 % Basophils % 0.1 % Immature Gran # 0.09 H (0.00-0.04) 10*3/uL Neutrophils # 8.06 H (1.80-7.70) 10*3/uL Lymphocytes # 1.33 (0.90-5.00) 10*3/uL Monocytes # 0.61 (0.20-1.00) 10*3/uL Eosinophils # 0.30 (0.04-0.35) 10*3/uL Basophils # 0.01 (0.00-0.10) 10*3/uL Sodium 141 (137-145) mmol/L Potassium 3.9 (3.5-5.1) mmol/L Chloride 104 (98-107) mmol/L Carbon Dioxide 27 (22-30) mmol/L Anion Gap 10 mmol/L BUN 16 (9-20) mg/dL Creatinine 0.81 (0.66-1.25) mg/dL Est GFR (CKD-EPI)AfAm >90 (>60 ml/min/1.73 sqM) Est GFR (CKD-EPI)NonAf >90 (>60 ml/min/1.73 sqM) Glucose 129 H (74-99) mg/dL Calcium 9.9 (8.4-10.2) mg/dL Magnesium 1.9 (1.6-2.3) mg/dL Total Bilirubin 0.4 (0.2-1.3) mg/dL AST 23 (17-59) U/L ALT 34 (4-49) U/L Alkaline Phosphatase 96 (38-126) U/L Total Protein 6.5 (6.3-8.2) g/dL Albumin 4.3 (3.5-5.0) g/dL Lipase 101 (23-300) U/L Urine Color Colorless Urine Appearance Clear (Clear) Urine pH 6.5 (5.0-8.0) Ur Specific [place] 1.008 (1.001-1.035) Urine Protein Negative (Negative) Urine Glucose (UA) 4+ H (Negative) Urine Ketones Negative (Negative) Urine Blood Negative (Negative) Urine Nitrite Negative (Negative) Urine Bilirubin Negative (Negative) Urine Urobilinogen <2.0 (<2.0) mg/dL Ur Leukocyte Esterase Negative (Negative) Disposition Clinical Impression: Glucosuria Disposition: HOME SELF-CARE Condition: Stable Instructions (If sedation given, give patient instructions): Foot Care for People with Diabetes (ED), Hypertension and Diabetes (ED) Additional Instructions: Please return to the Emergency Department if symptoms worsen or any other concerns. Is patient prescribed a controlled substance at d/c from ED?: No Referrals: None,Stated [Primary Care Provider] - 1-2 days Forms: Area PCPs Time of Disposition: 18:16
[2024-10-26] MEDS: SODIUM CHLORIDE 0.9% 1,000 ML IV ONE (17:40)
[2024-10-26 17:45] LABS: Basophils # (A) 0.01 10*3/uL (0.00-0.10); Basophils % (A) 0.1 %; Eosinophils % (A) 2.9 %; HCT 43.6 % (39.6-50.0); HGB 15.7 g/dL (13.0-17.0); Lymphocytes # (A) 1.33 10*3/uL (0.90-5.00); Lymphocytes % (A) 12.8 %; MCH 29.3 pg (27.0-32.0); MCV 81.5 fL (80.0-97.0); Mean Platelet Volume 9.3 fL (9.5-12.2); Monocytes # (A) 0.61 10*3/uL (0.20-1.00); Monocytes % (A) 5.9 %; Neutrophils # (A) 8.06 10*3/uL (1.80-7.70); Neutrophils % (A) 77.4 %; Platelet Count 191 10*3/uL (140-440); RBC 5.35 10*6/uL (4.40-5.60); RDW 13.4 % (11.5-14.5)
[2024-10-26 17:46] LABS: Appearance,Urine Clear (Clear); Bilirubin,Urine Negative (Negative); Blood,Urine Negative (Negative); Color,Urine Colorless; Glucose,Urine (UA) 4+ (Negative); Ketones,Urine Negative (Negative); Leukocyte Esterase,Urine Negative (Negative); Nitrite,Urine Negative (Negative); PH, Urine 6.5 (5.0-8.0); Protein,Urine Negative (Negative); Specific Gravity,Urine 1.008 (1.001-1.035); Urobilinogen,Urine <2.0 mg/dL (<2.0)
[2024-10-26 17:58] LABS: ALT 34 U/L (4-49); AST 23 U/L (17-59); African American GFR (CKD) >90 (>60 ml/min/1.73 sqM); Albumin 4.3 g/dL (3.5-5.0); Alkaline Phosphatase 96 U/L (38-126); Anion Gap 10 mmol/L; Blood Urea Nitrogen 16 mg/dL (9-20); Calcium 9.9 mg/dL (8.4-10.2); Carbon Dioxide 27 mmol/L (22-30); Chloride 104 mmol/L (98-107); Glucose 129 mg/dL (74-99); Lipase 101 U/L (23-300); Magnesium 1.9 mg/dL (1.6-2.3); Non-African American GFR(CKD) >90 (>60 ml/min/1.73 sqM); Potassium 3.9 mmol/L (3.5-5.1); Sodium 141 mmol/L (137-145); Total Bilirubin 0.4 mg/dL (0.2-1.3); Total Protein 6.5 g/dL (6.3-8.2)
[2024-10-26] MEDS: ONDANSETRON 4 MG/2 ML VIAL IVP STA (19:03)
[2024-10-26 19:12] VITALS: BP 134/88; PULSE 63; RESP 16
== END 2024-10-26 19:12 | disposition home or self-care (01) ==
LOC: EC 15:54
DX: R81 Glycosuria (principal); Z76.0 Encounter for issue of repeat prescription; F17.200 Nicotine dependence, unspecified, uncomplicated; Z91.048 Other nonmedicinal substance allergy status; Z88.1 Allergy status to other antibiotic agents; Z88.2 Allergy status to sulfonamides; Z88.0 Allergy status to penicillin; Z91.040 Latex allergy status
CPT/HCPCS: 36415; 80053; 83690; 83735; 85025; 81003; 99284; 96374; J2405

== ENCOUNTER 2024-10-27 04:53 | Emergency (ER) | payer OTHER ==
[2024-10-27 05:01] VITALS: RESP 18; TEMP 98.2
--- NOTE | 2024-10-27 05:18 | ED ---
Abdominal Pain HPI - General Chief Complaint: Abdominal Pain Stated Complaint: high blood sugar Time Seen by Provider: 10/27/24 05:10 Source: EMS Mode of arrival: EMS Limitations: no limitations - History of Present Illness Initial Comments: This patient is 54-year-old man with a constellation of symptoms. The patient states first off that it feels like his blood sugar is high. He has been thirsty and he was urinating frequently. Patient states that he also has been having intermittent diffuse cramping abdominal pains and states that it feels like he is constipated. He states that in the past 2 weeks he has only had small hard bowel movements. He states that it does not seem like it is normal for him. Patient states he has tried to drink water but it makes the cramping in his abdomen get worse. MD Complaint: abdominal pain Location: diffuse Severity: moderate Quality: cramping Consistency: intermittent Worsens With: nothing Associated Symptoms: nausea, constipation - Related Data Home Medications Medication Instructions Recorded Confirmed Insulin Lispro [humaLOG Kwikpen] See Protocol SQ AC-TID 08/23/24 10/13/24 Albuterol Nebulized [Ventolin 2.5 mg INHALATION RT-Q6H PRN 09/30/24 10/13/24 Nebulized] Capsaicin Cream [Trixaicin Cream] 1 applic TOPICAL TID PRN 09/30/24 10/13/24 Fluticasone Furoate [Flonase 1 spray EA NOSTRIL BID PRN 09/30/24 10/13/24 Sensimist] Insulin Glargine,Hum.rec.anlog 15 unit SQ HS 09/30/24 10/13/24 [Insulin Glargine Solostar] Nicotine Polacrilex [Nicorette] 2 mg BC DIRECTED PRN 09/30/24 10/13/24 Ondansetron [Zofran] 4 mg PO Q8HR PRN 09/30/24 10/13/24 traZODone HCL [Desyrel] 100 mg PO HS 09/30/24 10/13/24 Ammonium Lactate [Amlactin] 1 applic TOPICAL DAILY 10/13/24 10/13/24 Previous Rx's Medication Instructions Recorded Aspirin EC [Ecotrin Low Dose] 81 mg PO DAILY 30 Days #30 tab 07/13/24 Pantoprazole [Protonix] 40 mg PO DAILY 30 Days #30 tab 07/13/24 Budesonide/Formoterol Fumarate 2 puff INHALATION RT-BID 30 Days 08/15/24 [Symbicort 80-4.5 Mcg Inhaler] #1 each Atorvastatin [Lipitor] 10 mg PO HS 30 Days #30 tab 09/19/24 Dapagliflozin Propanediol [Farxiga] 10 mg PO DAILY 30 Days #30 tab 09/19/24 Sertraline [Zoloft] 100 mg PO DAILY 30 Days #30 tab 09/19/24 busPIRone HCl [Buspar] 5 mg PO BID 30 Days #60 tab 09/19/24 ARIPiprazole IM SYRINGE [Abilify 400 mg IM QMONTHLY #1 each 10/04/24 Maintena Syringe] ARIPiprazole [Abilify] 15 mg PO DAILY 13 Days #13 tab 10/04/24 Allergies Allergy/AdvReac Type Severity Reaction Status Date / Time dicyclomine HCl [From Bentyl] Allergy Unknown Dyspnea Verified 10/27/24 05:01 latex Allergy Unknown Rash/Hives Verified 10/27/24 05:01 Benzoate Analogues Allergy Unknown Verified 10/27/24 05:01 benzonatate Allergy Unknown Verified 10/27/24 05:01 nitrofurantoin Allergy Nausea Verified 10/27/24 05:01 [From Macrobid] Penicillins Allergy "[place] Verified 10/27/24 05:01 funny" adhesive AdvReac Unknown Itching Verified 10/27/24 05:01 ciprofloxacin AdvReac Unknown Nausea Verified 10/27/24 05:01 Macrolide Antibiotics AdvReac Unknown Nausea Verified 10/27/24 05:01 sulfamethoxazole AdvReac Unknown Unknown Verified 10/27/24 05:01 [From Bactrim] trimethoprim [From Bactrim] AdvReac Unknown Unknown Verified 10/27/24 05:01 diphenhydramine AdvReac Confusion Verified 10/27/24 05:01 [From Benadryl] Review of Systems ROS Statement: Those systems with pertinent positive or pertinent negative responses have been documented in the HPI. ROS Other: All systems not noted in ROS Statement are negative. Constitutional: Denies: fever, chills, weakness Respiratory: Denies: cough, dyspnea Cardiovascular: Denies: chest pain, palpitations, edema, syncope Gastrointestinal: Reports: abdominal pain, nausea, constipation. Denies: vomiting, diarrhea, melena, hematochezia Genitourinary: Denies: dysuria, hematuria, testicular pain Musculoskeletal: Denies: back pain Skin: Denies: rash Neurological: Denies: headache, weakness, numbness Past Medical History Past Medical History: Asthma, Chest Pain / Angina, COPD, CVA/TIA, Diabetes Mellitus, GERD/Reflux, Hearing Disorder / Deafness, Hyperlipidemia, Hypertension, Liver Disease, Osteoarthritis (OA), Pneumonia, Seizure Disorder, Sleep Apnea/CPAP/BIPAP Additional Past Medical History / Comment(s): states CVA at 35 yrs old, no weakness @ this time. states seizure at 35 yrs old., DDD- back & neck pain., carpal tunnel syndrome. Has [facility] public guardian. History of Any Multi-Drug Resistant Organisms: Other MDRO Past Surgical History: Heart Catheterization, Orthopedic Surgery Additional Past Surgical History / Comment(s): Cysts removed, left thumb surgery, colonoscopy 08/24/2019. Skin tags removed from both eyes. Past Anesthesia/Blood Transfusion Reactions: Motion Sickness, Postoperative Nausea & Vomiting (PONV) Past Psychological History: Anxiety, Bipolar, Depression Smoking Status: Current every day smoker Past Alcohol Use History: Abuse Past Drug Use History: None Reported - Past Family History Brother(s) Family Medical History: Diabetes Mellitus Additional Family Medical History / Comment(s): Patient has 2 brothers. One from complications from diabetes. The second is alive with diabetes. Sister(s) Family Medical History: Cancer Additional Family Medical History / Comment(s): Patient has one sister with breast cancer. Patient does not have any children. Father Family Medical History: Cancer Additional Family Medical History / Comment(s): Father in his 40s or 50s from colon cancer. Mother Family Medical History: Cancer Additional Family Medical History / Comment(s): Mother at age 68 from lung cancer. General Exam General appearance: alert, in no apparent distress Head exam: Present: atraumatic, normocephalic Eye exam: Present: normal appearance. Absent: scleral icterus, conjunctival injection ENT exam: Present: mucous membranes dry Neck exam: Present: normal inspection Respiratory exam: Present: normal lung sounds bilaterally. Absent: respiratory distress, wheezes, rales, rhonchi, stridor, accessory muscle use Cardiovascular Exam: Present: regular rate, normal rhythm, normal heart sounds. Absent: systolic murmur, diastolic murmur, rubs, gallop GI/Abdominal exam: Present: soft. Absent: distended, tenderness, guarding, rebound, rigid, mass, pulsatile mass Extremities exam: Present: normal inspection, normal capillary refill. Absent: pedal edema, calf tenderness Back exam: Present: normal inspection. Absent: CVA tenderness (R), CVA ten [place]ness (L) Neurological exam: Present: alert Skin exam: Present: warm, dry, intact, normal color. Absent: rash Course Vital Signs 10/27/24 04:55 Temperature 98.2 F Pulse Rate 70 Respiratory 18 Rate Blood Pressure 135/91 Medical Decision Making - Lab Data Result diagrams: 10/27/24 05:41 10/27/24 05:41 Lab Results 10/27/24 10/27/24 10/27/24 Range/Units 05:41 05:41 05:41 WBC 7.67 (4.50-10.00) 10*3/uL RBC 4.87 (4.40-5.60) 10*6/uL Hgb 14.4 (13.0-17.0) g/dL Hct 40.0 (39.6-50.0) % MCV 82.1 (80.0-97.0) fL MCH 29.6 (27.0-32.0) pg MCHC 36.0 (32.0-37.0) g/dL Plt Count 181 (140-440) 10*3/uL MPV 9.7 (9.5-12.2) fL Immature Gran % (Auto) 0.7 % Neutrophils % 70.7 % Lymphocytes % 15.6 % Monocytes % 8.2 % Eosinophils % 4.7 % Basophils % 0.1 % Immature Gran # 0.05 H (0.00-0.04) 10*3/uL Neutrophils # 5.42 (1.80-7.70) 10*3/uL Lymphocytes # 1.20 (0.90-5.00) 10*3/uL Monocytes # 0.63 (0.20-1.00) 10*3/uL Eosinophils # 0.36 H (0.04-0.35) 10*3/uL Basophils # 0.01 (0.00-0.10) 10*3/uL Sodium 139 (137-145) mmol/L Potassium 3.4 L (3.5-5.1) mmol/L Chloride 109 H (98-107) mmol/L Carbon Dioxide 24 (22-30) mmol/L Anion Gap 6 mmol/L BUN 15 (9-20) mg/dL Creatinine 0.69 (0.66-1.25) mg/dL Est GFR (CKD-EPI)AfAm >90 (>60 ml/min/1.73 sqM) Est GFR (CKD-EPI)NonAf >90 (>60 ml/min/1.73 sqM) Glucose 191 H (74-99) mg/dL Plasma Lactic Acid [place] 1.4 (0.7-2.0) mmol/L Calcium 8.8 (8.4-10.2) mg/dL Total Bilirubin 0.5 (0.2-1.3) mg/dL AST 23 (17-59) U/L ALT 28 (4-49) U/L Alkaline Phosphatase 106 (38-126) U/L Total Protein 5.7 L (6.3-8.2) g/dL Albumin 3.6 (3.5-5.0) g/dL Amylase 42 (30-110) U/L Lipase 90 (23-300) U/L Urine Color Urine Appearance (Clear) Urine pH (5.0-8.0) Ur Specific [place] (1.001-1.035) Urine Protein (Negative) Urine Glucose (UA) (Negative) Urine Ketones (Negative) Urine Blood (Negative) Urine Nitrite (Negative) Urine Bilirubin (Negative) Urine Urobilinogen (<2.0) mg/dL Ur Leukocyte Esterase (Negative) 10/27/24 Range/Units 06:25 WBC (4.50-10.00) 10*3/uL RBC (4.40-5.60) 10*6/uL Hgb (13.0-17.0) g/dL Hct (39.6-50.0) % MCV (80.0-97.0) fL MCH (27.0-32.0) pg MCHC (32.0-37.0) g/dL Plt Count (140-440) 10*3/uL MPV (9.5-12.2) fL Immature Gran % (Auto) % Neutrophils % % Lymphocytes % % Monocytes % % Eosinophils % % Basophils % % Immature Gran # (0.00-0.04) 10*3/uL Neutrophils # (1.80-7.70) 10*3/uL Lymphocytes # (0.90-5.00) 10*3/uL Monocytes # (0.20-1.00) 10*3/uL Eosinophils # (0.04-0.35) 10*3/uL Basophils # (0.00-0.10) 10*3/uL Sodium (137-145) mmol/L Potassium (3.5-5.1) mmol/L Chloride (98-107) mmol/L Carbon Dioxide (22-30) mmol/L Anion Gap mmol/L BUN (9-20) mg/dL Creatinine (0.66-1.25) mg/dL Est GFR (CKD-EPI)AfAm (>60 ml/min/1.73 sqM) Est GFR (CKD-EPI)NonAf (>60 ml/min/1.73 sqM) Glucose (74-99) mg/dL Plasma Lactic Acid [place] (0.7-2.0) mmol/L Calcium (8.4-10.2) mg/dL Total Bilirubin (0.2-1.3) mg/dL AST (17-59) U/L ALT (4-49) U/L Alkaline Phosphatase (38-126) U/L Total Protein (6.3-8.2) g/dL Albumin (3.5-5.0) g/dL Amylase (30-110) U/L Lipase (23-300) U/L Urine Color Colorless Urine Appearance Clear (Clear) Urine pH 7.0 (5.0-8.0) Ur Specific [place] 1.011 (1.001-1.035) Urine Protein Negative (Negative) Urine Glucose (UA) 4+ H (Negative) Urine Ketones Negative (Negative) Urine Blood Negative (Negative) Urine Nitrite Negative (Negative) Urine Bilirubin Negative (Negative) Urine Urobilinogen <2.0 (<2.0) mg/dL Ur Leukocyte Esterase Negative (Negative) Disposition Clinical Impression: Constipation, Hyperglycemia Disposition: HOME SELF-CARE Condition: Good Instructions (If sedation given, give patient instructions): Diabetic Hyperglycemia (ED), Constipation (DC) Is patient prescribed a controlled substance at d/c from ED?: No Referrals: None,Stated [Primary Care Provider] - 1-2 days
[2024-10-27 05:49] LABS: Basophils # (A) 0.01 10*3/uL (0.00-0.10); Basophils % (A) 0.1 %; Eosinophils # (A) 0.36 10*3/uL (0.04-0.35); Eosinophils % (A) 4.7 %; HGB 14.4 g/dL (13.0-17.0); Lymphocytes % (A) 15.6 %; MCH 29.6 pg (27.0-32.0); MCV 82.1 fL (80.0-97.0); Mean Platelet Volume 9.7 fL (9.5-12.2); Monocytes # (A) 0.63 10*3/uL (0.20-1.00); Monocytes % (A) 8.2 %; Neutrophils # (A) 5.42 10*3/uL (1.80-7.70); Neutrophils % (A) 70.7 %; Platelet Count 181 10*3/uL (140-440); RBC 4.87 10*6/uL (4.40-5.60); RDW 13.5 % (11.5-14.5); WBC 7.67 10*3/uL (4.50-10.00)
[2024-10-27 06:01] LABS: ALT 28 U/L (4-49); AST 23 U/L (17-59); African American GFR (CKD) >90 (>60 ml/min/1.73 sqM); Albumin 3.6 g/dL (3.5-5.0); Alkaline Phosphatase 106 U/L (38-126); Amylase 42 U/L (30-110); Anion Gap 6 mmol/L; Blood Urea Nitrogen 15 mg/dL (9-20); Calcium 8.8 mg/dL (8.4-10.2); Carbon Dioxide 24 mmol/L (22-30); Chloride 109 mmol/L (98-107); Glucose 191 mg/dL (74-99); Lipase 90 U/L (23-300); Non-African American GFR(CKD) >90 (>60 ml/min/1.73 sqM); Potassium 3.4 mmol/L (3.5-5.1); Sodium 139 mmol/L (137-145); Total Bilirubin 0.5 mg/dL (0.2-1.3); Total Protein 5.7 g/dL (6.3-8.2)
[2024-10-27] MEDS: SODIUM CHLORIDE 0.9% 1,000 ML IV ONE (06:24)
[2024-10-27 06:36] LABS: Appearance,Urine Clear (Clear); Bilirubin,Urine Negative (Negative); Blood,Urine Negative (Negative); Color,Urine Colorless; Glucose,Urine (UA) 4+ (Negative); Ketones,Urine Negative (Negative); Leukocyte Esterase,Urine Negative (Negative); Nitrite,Urine Negative (Negative); Protein,Urine Negative (Negative); Specific Gravity,Urine 1.011 (1.001-1.035); Urobilinogen,Urine <2.0 mg/dL (<2.0)
[2024-10-27] MEDS: MAGNESIUM CITRATE 296 ML BOTTLE PO ONE (07:54)
[2024-10-27 07:59] VITALS: BP 110/56; PULSE 77
== END 2024-10-27 07:59 | disposition home or self-care (01) ==
LOC: EC 04:53
DX: K59.00 Constipation, unspecified (principal); R73.9 Hyperglycemia, unspecified; F17.200 Nicotine dependence, unspecified, uncomplicated; Z86.73 Personal history of transient ischemic attack (TIA), and cerebral infarction without residual deficits; Z88.0 Allergy status to penicillin; Z88.1 Allergy status to other antibiotic agents; Z88.2 Allergy status to sulfonamides; Z88.8 Allergy status to other drugs, medicaments and biological substances; Z91.040 Latex allergy status
CPT/HCPCS: 36415; 80053; 81003; 82150; 83605; 83690; 85025; 96360; 99284

== ENCOUNTER 2024-11-02 12:52 | Emergency (ER) | payer OTHER ==
[2024-11-02 12:58] VITALS: RESP 18; TEMP 98.9
[2024-11-02 13:02] LABS: Glucose,Whole Blood 303 mg/dL (70-110)
[2024-11-02] MEDS: MORPHINE SULFATE 4 MG/ML SYRINGE IVP STA (14:14)
[2024-11-02] MEDS: SODIUM CHLORIDE 0.9% 1,000 ML IV ONE (14:15)
[2024-11-02 14:16] LABS: Basophils # (A) 0.01 10*3/uL (0.00-0.10); Basophils % (A) 0.2 %; Eosinophils # (A) 0.37 10*3/uL (0.04-0.35); Eosinophils % (A) 6.5 %; HGB 14.3 g/dL (13.0-17.0); Lymphocytes # (A) 1.09 10*3/uL (0.90-5.00); Lymphocytes % (A) 19.1 %; MCH 29.8 pg (27.0-32.0); MCHC 35.8 g/dL (32.0-37.0); MCV 83.3 fL (80.0-97.0); Mean Platelet Volume 9.6 fL (9.5-12.2); Monocytes # (A) 0.41 10*3/uL (0.20-1.00); Monocytes % (A) 7.2 %; Neutrophils # (A) 3.78 10*3/uL (1.80-7.70); Neutrophils % (A) 66.3 %; Platelet Count 159 10*3/uL (140-440); RDW 13.8 % (11.5-14.5)
[2024-11-02 14:34] LABS: ALT 27 U/L (4-49); AST 19 U/L (17-59); African American GFR (CKD) >90 (>60 ml/min/1.73 sqM); Albumin 3.4 g/dL (3.5-5.0); Alkaline Phosphatase 88 U/L (38-126); Anion Gap 8 mmol/L; Blood Urea Nitrogen 6 mg/dL (9-20); Calcium 8.7 mg/dL (8.4-10.2); Carbon Dioxide 23 mmol/L (22-30); Chloride 108 mmol/L (98-107); Glucose 266 mg/dL (74-99); Non-African American GFR(CKD) >90 (>60 ml/min/1.73 sqM); Potassium 3.8 mmol/L (3.5-5.1); Sodium 139 mmol/L (137-145); Total Bilirubin 0.3 mg/dL (0.2-1.3); Total Protein 5.5 g/dL (6.3-8.2)
[2024-11-02 14:35] LABS: Appearance,Urine Clear (Clear); Bilirubin,Urine Negative (Negative); Blood,Urine Negative (Negative); Color,Urine Colorless; Glucose,Urine (UA) 4+ (Negative); Ketones,Urine Negative (Negative); Leukocyte Esterase,Urine Negative (Negative); Nitrite,Urine Negative (Negative); PH, Urine 6.5 (5.0-8.0); Protein,Urine Negative (Negative); Urobilinogen,Urine <2.0 mg/dL (<2.0)
--- NOTE | 2024-11-02 14:42 | ED ---
Altered Mental Status HPI - General Chief Complaint: Altered Mental Status Stated Complaint: abn labs Source: EMS Mode of arrival: EMS Limitations: no limitations - Related Data Home Medications Medication Instructions Recorded Confirmed Insulin Lispro [humaLOG Kwikpen] See Protocol SQ AC-TID 08/23/24 10/13/24 Albuterol Nebulized [Ventolin 2.5 mg INHALATION RT-Q6H PRN 09/30/24 10/13/24 Nebulized] Capsaicin Cream [Trixaicin Cream] 1 applic TOPICAL TID PRN 09/30/24 10/13/24 Fluticasone Furoate [Flonase 1 spray EA NOSTRIL BID PRN 09/30/24 10/13/24 Sensimist] Insulin Glargine,Hum.rec.anlog 15 unit SQ HS 09/30/24 10/13/24 [Insulin Glargine Solostar] Nicotine Polacrilex [Nicorette] 2 mg BC DIRECTED PRN 09/30/24 10/13/24 Ondansetron [Zofran] 4 mg PO Q8HR PRN 09/30/24 10/13/24 traZODone HCL [Desyrel] 100 mg PO HS 09/30/24 10/13/24 Ammonium Lactate [Amlactin] 1 applic TOPICAL DAILY 10/13/24 10/13/24 Previous Rx's Medication Instructions Recorded Aspirin EC [Ecotrin Low Dose] 81 mg PO DAILY 30 Days #30 tab 07/13/24 Pantoprazole [Protonix] 40 mg PO DAILY 30 Days #30 tab 07/13/24 Budesonide/Formoterol Fumarate 2 puff INHALATION RT-BID 30 Days 08/15/24 [Symbicort 80-4.5 Mcg Inhaler] #1 each Atorvastatin [Lipitor] 10 mg PO HS 30 Days #30 tab 09/19/24 Dapagliflozin Propanediol [Farxiga] 10 mg PO DAILY 30 Days #30 tab 09/19/24 Sertraline [Zoloft] 100 mg PO DAILY 30 Days #30 tab 09/19/24 busPIRone HCl [Buspar] 5 mg PO BID 30 Days #60 tab 09/19/24 ARIPiprazole IM SYRINGE [Abilify 400 mg IM QMONTHLY #1 each 10/04/24 Maintena Syringe] ARIPiprazole [Abilify] 15 mg PO DAILY 13 Days #13 tab 10/04/24 Allergies Allergy/AdvReac Type Severity Reaction Status Date / Time dicyclomine HCl [From Bentyl] Allergy Unknown Dyspnea Verified 10/27/24 05:01 latex Allergy Unknown Rash/Hives Verified 10/27/24 05:01 Benzoate Analogues Allergy Unknown Verified 10/27/24 05:01 benzonatate Allergy Unknown Verified 10/27/24 05:01 nitrofurantoin Allergy Nausea Verified 10/27/24 05:01 [From Macrobid] Penicillins Allergy "[place] Verified 10/27/24 05:01 funny" adhesive AdvReac Unknown Itching Verified 10/27/24 05:01 ciprofloxacin AdvReac Unknown Nausea Verified 10/27/24 05:01 Macrolide Antibiotics AdvReac Unknown Nausea Verified 10/27/24 05:01 sulfamethoxazole AdvReac Unknown Unknown Verified 10/27/24 05:01 [From Bactrim] trimethoprim [From Bactrim] AdvReac Unknown Unknown Verified 10/27/24 05:01 diphenhydramine AdvReac Confusion Verified 10/27/24 05:01 [From Benadryl] Review of Systems ROS Statement: Those systems with pertinent positive or pertinent negative responses have been documented in the HPI. ROS Other: All systems not noted in ROS Statement are negative. Past Medical History Past Medical History: Asthma, Chest Pain / Angina, COPD, CVA/TIA, Diabetes Mellitus, GERD/Reflux, Hearing Disorder / Deafness, Hyperlipidemia, Hypertension, Liver Disease, Osteoarthritis (OA), Pneumonia, Seizure Disorder, Sleep Apnea/CPAP/BIPAP Additional Past Medical History / Comment(s): states CVA at 35 yrs old, no weakness @ this time. states seizure at 35 yrs old., DDD- back & neck pain., carpal tunnel syndrome. Has [facility] public guardian. History of Any Multi-Drug Resistant Organisms: Other MDRO Past Surgical History: Heart Catheterization, Orthopedic Surgery Additional Past Surgical History / Comment(s): Cysts removed, left thumb surgery, colonoscopy 08/24/2019. Skin tags removed from both eyes. Past Anesthesia/Blood Transfusion Reactions: Motion Sickness, Postoperative Nausea & Vomiting (PONV) Past Psychological History: Anxiety, Bipolar, Depression Smoking Status: Current every day smoker Past Alcohol Use History: Abuse Past Drug Use History: None Reported - Past Family History Brother(s) Family Medical History: Diabetes Mellitus Additional Family Medical History / Comment(s): Patient has 2 brothers. One from complications from diabetes. The second is alive with diabetes. Sister(s) Family Medical History: Cancer Additional Family Medical History / Comment(s): Patient has one sister with breast cancer. Patient does not have any children. Father Family Medical History: Cancer Additional Family Medical History / Comment(s): Father in his 40s or 50s from colon cancer. Mother Family Medical History: Cancer Additional Family Medical History / Comment(s): Mother at age 68 from lung cancer. General Exam Limitations: no limitations Course Vital Signs 11/02/24 12:53 Temperature 98.9 F Pulse Rate 71 Respiratory 18 Rate Blood Pressure 126/77 O2 Sat by Pulse 97 Oximetry Medical Decision Making - Medical Decision Making Was pt. sent in by a medical professional or institution (, SEAN, PHOTOENGRAVING PROOFER, urgent care, hospital, or long term...) When possible be specific @ -[No] Did you speak to anyone other than the patient for history (EMS, parent, family, police, friend...)? What history was obtained from this source @ -[No] Did you review nursing and triage notes (agree or disagree)? Why? @ -[I reviewed and agree with nursing and triage notes] Were old charts reviewed (outside hosp., previous admission, EMS record, old EKG, old radiological studies, urgent care reports/EKG's, long term records)? Report findings @ -[No old charts were reviewed] Differential Diagnosis (chest pain, altered mental status, abdominal pain women, abdominal pain men, vaginal bleeding, weakness, fever, dyspnea, syncope, headache, dizziness, GI bleed, back pain, seizure, CVA, palpatations, mental health, musculoskeletal)? @ -[not applicable] EKG interpreted by me (3pts min.). @ -Yes and demonstrates sinus rhythm with rate of 67. WI interval 159. QRS 109. QTc of 430. No acute ST segment elevations or depressions X-rays interpreted by me (1pt min.). @ -[None done] CT interpreted by me (1pt min.). @ -[None done] U/S interpreted by me (1pt. min.). @ -[None done] What testing was considered but not performed or refused? (CT, X-rays, U/S, l abs)? Why? @ -[None] What meds were considered but not given or refused? Why? @ -[None] Did you discuss the management of the patient with other professionals (professionals i.e. , PA, PHOTOENGRAVING PROOFER, lab, RT, psych nurse, social media intern, silo tender, teacher, inspectors and regulatory officers, briefcase sewer)? Give summary @ -[No] Was smoking cessation discussed for >3mins.? @ -[No] Was critical care preformed (if so, how long)? @ -[No] Were there social determinants of health that impacted care today? How? (Homelessness, low income, unemployed, alcoholism, drug addiction, transportation, low edu. Level, literacy, decrease access to med. care, senior care, rehab)? @ -[No] Was there de-escalation of care discussed even if they declined (Discuss DNR or withdrawal of care, Hospice)? DNR status @ -[No] What co-morbidities impacted this encounter? (DM, HTN, Smoking, COPD, CAD, Cancer, CVA, ARF, Chemo, Hep., AIDS, mental health diagnosis, sleep apnea, morbid obesity)? @ -[None] Was patient admitted / discharged? Hospital course, mention meds given and route, prescriptions, significant lab abnormalities, going to OR and other pertinent info. @ -[hospital course] Undiagnosed new problem with uncertain prognosis? @ -[No] Drug Therapy requiring intensive monitoring for toxicity (Heparin, Nitro, Insulin, Cardizem)? @ -[No] Were any procedures done? @ -[No] Diagnosis/symptom? @ -[default] Acute, or Chronic, or Acute on Chronic? @ -[default] Uncomplicated (without systemic symptoms) or Complicated (systemic symptoms)? @ -[default] Side effects of treatment? @ -[No] Exacerbation, Progression, or Severe Exacerbation? @ -[No] Poses a threat to life or bodily function? How? (Chest pain, [place], [place], pneumonia, PE, COPD, DKA, ARF, appy, cholecystitis, CVA, Diverticulitis, Homicidal, Suicidal, threat to staff... and all critical care pts) @ -[No] - Lab Data Result diagrams: 11/02/24 14:09 05/08/25 14:09 Lab Results 11/02/24 11/02/24 11/02/24 Range/Units 13:00 14:09 14:09 WBC 5.70 (4.50-10.00) 10*3/uL RBC 4.80 (4.40-5.60) 10*6/uL Hgb 14.3 (13.0-17.0) g/dL Hct 40.0 (39.6-50.0) % MCV 83.3 (80.0-97.0) fL MCH 29.8 (27.0-32.0) pg MCHC 35.8 (32.0-37.0) g/dL Plt Count 159 (140-440) 10*3/uL MPV 9.6 (9.5-12.2) fL Immature Gran % (Auto) 0.7 % Neutrophils % 66.3 % Lymphocytes % 19.1 % Monocytes % 7.2 % Eosinophils % 6.5 % Basophils % 0.2 % Immature Gran # 0.04 (0.00-0.04) 10*3/uL Neutrophils # 3.78 (1.80-7.70) 10*3/uL Lymphocytes # 1.09 (0.90-5.00) 10*3/uL Monocytes # 0.41 (0.20-1.00) 10*3/uL Eosinophils # 0.37 H (0.04-0.35) 10*3/uL Basophils # 0.01 (0.00-0.10) 10*3/uL Sodium 139 (137-145) mmol/L Potassium 3.8 (3.5-5.1) mmol/L Chloride 108 H (98-107) mmol/L Carbon Dioxide 23 (22-30) mmol/L Anion Gap 8 mmol/L BUN 6 L (9-20) mg/dL Creatinine 0.58 L (0.66-1.25) mg/dL Est GFR (CKD-EPI)AfAm >90 (>60 ml/min/1.73 sqM) Est GFR (CKD-EPI)NonAf >90 (>60 ml/min/1.73 sqM) Glucose 266 H (74-99) mg/dL POC Glucose (mg/dL) 303 H (70-110) mg/dL POC Glu Garden Worker JEANCARLOS Smith Calcium 8.7 (8.4-10.2) mg/dL Total Bilirubin 0.3 (0.2-1.3) mg/dL AST 19 (17-59) U/L ALT 27 (4-49) U/L Alkaline Phosphatase 88 (38-126) U/L Troponin I (0.000-0.034) ng/mL Total Protein 5.5 L (6.3-8.2) g/dL Albumin 3.4 L (3.5-5.0) g/dL Urine Color Urine Appearance (Clear) Urine pH (5.0-8.0) Ur Specific [place] (1.001-1.035) Urine Protein (Negative) Urine Glucose (UA) (Negative) Urine Ketones (Negative) Urine Blood (Negative) Urine Nitrite (Negative) Urine Bilirubin (Negative) Urine Urobilinogen (<2.0) mg/dL Ur Leukocyte Esterase (Negative) 11/02/24 11/02/24 Range/Units 14:09 14:15 WBC (4.50-10.00) 10*3/uL RBC (4.40-5.60) 10*6/uL Hgb (13.0-17.0) g/dL Hct (39.6-50.0) % MCV (80.0-97.0) fL MCH (27.0-32.0) pg MCHC (32.0-37.0) g/dL Plt Count (140-440) 10*3/uL MPV (9.5-12.2) fL Immature Gran % (Auto) % Neutrophils % % Lymphocytes % % Monocytes % % Eosinophils % % Basophils % % Immature Gran # (0.00-0.04) 10*3/uL Neutrophils # (1.80-7.70) 10*3/uL Lymphocytes # (0.90-5.00) 10*3/uL Monocytes # (0.20-1.00) 10*3/uL Eosinophils # (0.04-0.35) 10*3/uL Basophils # (0.00-0.10) 10*3/uL Sodium (137-145) mmol/L Potassium (3.5-5.1) mmol/L Chloride (98-107) mmol/L Carbon Dioxide (22-30) mmol/L Anion Gap mmol/L BUN (9-20) mg/dL Creatinine (0.66-1.25) mg/dL Est GFR (CKD-EPI)AfAm (>60 ml/min/1.73 sqM) Est GFR (CKD-EPI)NonAf (>60 ml/min/1.73 sqM) Glucose (74-99) mg/dL POC Glucose (mg/dL) (70-110) mg/dL POC Glu Garden Worker ID Calcium (8.4-10.2) mg/dL Total Bilirubin (0.2-1.3) mg/dL AST (17-59) U/L ALT (4-49) U/L Alkaline Phosphatase (38-126) U/L Troponin I <0.012 (0.000-0.034) ng/mL Total Protein (6.3-8.2) g/dL Albumin (3.5-5.0) g/dL Urine Color Colorless Urine Appearance Clear (Clear) Urine pH 6.5 (5.0-8.0) Ur Specific [place] 1.010 (1.001-1.035) Urine Protein Negative (Negative) Urine Glucose (UA) 4+ H (Negative) Urine Ketones Negative (Negative) Urine Blood Negative (Negative) Urine Nitrite Negative (Negative) Urine Bilirubin Negative (Negative) Urine Urobilinogen <2.0 (<2.0) mg/dL Ur Leukocyte Esterase Negative (Negative) Disposition Clinical Impression: Hyperglycemia Disposition: HOME SELF-CARE Condition: Stable Instructions (If sedation given, give patient instructions): Diabetic Hyperglycemia (ED) Additional Instructions: Your labs are within normal limits. Please follow-up with your doctor and return for any new or worsening symptoms Is patient prescribed a controlled substance at d/c from ED?: No Referrals: Ramya Saul MD [Primary Care Provider] - 1-2 days Time of Disposition: 15:27
--- NOTE | 2024-11-02 15:20 | XR ---
EXAMINATION TYPE: XR chest 2V DATE OF EXAM: 11/02/2024 3:17 PM COMPARISON: Chest radiographs from 09/27/2024 TECHNIQUE: XR chest 2V Frontal and lateral views of the chest. CLINICAL INDICATION:Male, 54 years old with history of altered mental status; FINDINGS: Lungs/Pleura: There is no evidence of pleural effusion, focal consolidation, or pneumothorax. Pulmonary vascularity: Unremarkable. Heart/mediastinum: Cardiomediastinal silhouette is prominent in size. Musculoskeletal: Multiple level degenerative disc disease changes seen throughout the spine. IMPRESSION: No acute cardiopulmonary disease/process. [facility], , 11/02/2024 3:18 PM
[2024-11-02] MEDS: SUCRALFATE 1 GM TAB PO STA (16:11)
[2024-11-02 16:12] VITALS: BP 117/74; PULSE 54
== END 2024-11-02 16:12 | disposition home or self-care (01) ==
LOC: EC 12:52
DX: E11.65 Type 2 diabetes mellitus with hyperglycemia (principal); F17.200 Nicotine dependence, unspecified, uncomplicated; Z79.84 Long term (current) use of oral hypoglycemic drugs; Z88.0 Allergy status to penicillin; Z88.1 Allergy status to other antibiotic agents; Z88.2 Allergy status to sulfonamides; Z91.09 Other allergy status, other than to drugs and biological substances; Z91.040 Latex allergy status; Z88.8 Allergy status to other drugs, medicaments and biological substances
CPT/HCPCS: 36415; 93005; 80053; 84484; 85025; 81003; 71046; 99285; 96374; 96361; J2270

== ENCOUNTER 2024-11-07 09:21 | Emergency (ER) | payer MEDICARE, OTHER ==
[2024-11-07 09:27] VITALS: BP 126/79; PULSE 65; RESP 22; TEMP 97.8
--- NOTE | 2024-11-07 09:43 | ED ---
General Adult HPI - General Chief complaint: Headache Stated complaint: abd pain Time Seen by Provider: 11/07/24 09:32 Source: patient, RN notes reviewed Mode of arrival: ambulatory Limitations: no limitations - History of Present Illness Initial comments: 54-year-old male presents emergency department well-known emergency department with multiple complaints. Patient complains of headache, abdominal pain, nausea. Patient has chronic abdominal issues. Patient states they are acting up currently. He does complain of diffuse headache he was recently seen in the emergency department had a full workup without any acute findings. Patient reports no fevers or chills no neck pain or neck stiffness. - Related Data Home Medications Medication Instructions Recorded Confirmed Insulin Lispro [humaLOG Kwikpen] See Protocol SQ AC-TID 08/23/24 10/13/24 Albuterol Nebulized [Ventolin 2.5 mg INHALATION RT-Q6H PRN 09/30/24 10/13/24 Nebulized] Capsaicin Cream [Trixaicin Cream] 1 applic TOPICAL TID PRN 09/30/24 10/13/24 Fluticasone Furoate [Flonase 1 spray EA NOSTRIL BID PRN 09/30/24 10/13/24 Sensimist] Insulin Glargine,Hum.rec.anlog 15 unit SQ HS 09/30/24 10/13/24 [Insulin Glargine Solostar] Nicotine Polacrilex [Nicorette] 2 mg BC DIRECTED PRN 09/30/24 10/13/24 Ondansetron [Zofran] 4 mg PO Q8HR PRN 09/30/24 10/13/24 traZODone HCL [Desyrel] 100 mg PO HS 09/30/24 10/13/24 Ammonium Lactate [Amlactin] 1 applic TOPICAL DAILY 10/13/24 10/13/24 Previous Rx's Medication Instructions Recorded Aspirin EC [Ecotrin Low Dose] 81 mg PO DAILY 30 Days #30 tab 07/13/24 Pantoprazole [Protonix] 40 mg PO DAILY 30 Days #30 tab 07/13/24 Budesonide/Formoterol Fumarate 2 puff INHALATION RT-BID 30 Days 08/15/24 [Symbicort 80-4.5 Mcg Inhaler] #1 each Atorvastatin [Lipitor] 10 mg PO HS 30 Days #30 tab 09/19/24 Dapagliflozin Propanediol [Farxiga] 10 mg PO DAILY 30 Days #30 tab 09/19/24 Sertraline [Zoloft] 100 mg PO DAILY 30 Days #30 tab 09/19/24 busPIRone HCl [Buspar] 5 mg PO BID 30 Days #60 tab 09/19/24 ARIPiprazole IM SYRINGE [Abilify 400 mg IM QMONTHLY #1 each 10/04/24 Maintena Syringe] ARIPiprazole [Abilify] 15 mg PO DAILY 13 Days #13 tab 10/04/24 Allergies Allergy/AdvReac Type Severity Reaction Status Date / Time dicyclomine HCl [From Bentyl] Allergy Unknown Dyspnea Verified 11/07/24 09:27 latex Allergy Unknown Rash/Hives Verified 11/07/24 09:27 Benzoate Analogues Allergy Unknown Verified 11/07/24 09:27 benzonatate Allergy Unknown Verified 11/07/24 09:27 nitrofurantoin Allergy Nausea Verified 11/07/24 09:27 [From Macrobid] Penicillins Allergy "[place] Verified 11/07/24 09:27 funny" adhesive AdvReac Unknown Itching Verified 11/07/24 09:27 ciprofloxacin AdvReac Unknown Nausea Verified 11/07/24 09:27 Macrolide Antibiotics AdvReac Unknown Nausea Verified 11/07/24 09:27 sulfamethoxazole AdvReac Unknown Unknown Verified 11/07/24 09:27 [From Bactrim] trimethoprim [From Bactrim] AdvReac Unknown Unknown Verified 11/07/24 09:27 diphenhydramine AdvReac Confusion Verified 11/07/24 09:27 [From Benadryl] Review of Systems ROS Statement: Those systems with pertinent positive or pertinent negative responses have been documented in the HPI. ROS Other: All systems not noted in ROS Statement are negative. Past Medical History Past Medical History: Asthma, Chest Pain / Angina, COPD, CVA/TIA, Diabetes Mellitus, GERD/Reflux, Hearing Disorder / Deafness, Hyperlipidemia, Hypertension, Liver Disease, Osteoarthritis (OA), Pneumonia, Seizure Disorder, Sleep Apnea/CPAP/BIPAP Additional Past Medical History / Comment(s): states CVA at 35 yrs old, no weakness @ this time. states seizure at 35 yrs old., DDD- back & neck pain., carpal tunnel syndrome. Has [facility] public guardian. History of Any Multi-Drug Resistant Organisms: Other MDRO Past Surgical History: Heart Catheterization, Orthopedic Surgery Additional Past Surgical History / Comment(s): Cysts removed, left thumb surgery, colonoscopy 08/24/2019. Skin tags removed from both eyes. Past Anesthesia/Blood Transfusion Reactions: Motion Sickness, Postoperative Nausea & Vomiting (PONV) Past Psychological History: Anxiety, Bipolar, Depression Smoking Status: Current every day smoker Past Alcohol Use History: Abuse Past Drug Use History: None Reported - Past Family History Brother(s) Family Medical History: Diabetes Mellitus Additional Family Medical History / Comment(s): Patient has 2 brothers. One from complications from diabetes. The second is alive with diabetes. Sister(s) Family Medical History: Cancer Additional Family Medical History / Comment(s): Patient has one sister with breast cancer. Patient does not have any children. Father Family Medical History: Cancer Additional Family Medical History / Comment(s): Father in his 40s or 50s from colon cancer. Mother Family Medical History: Cancer Additional Family Medical History / Comment(s): Mother at age 68 from lung cancer. General Exam Limitations: no limitations General appearance: alert, in no apparent distress Head exam: Present: atraumatic, normocephalic, normal inspection Eye exam: Present: normal appearance, PERRL, EOMI. Absent: scleral icterus, conjunctival injection, periorbital swelling ENT exam: Present: normal exam, mucous membranes moist Neck exam: Present: normal inspection, full ROM. Absent: tenderness, meningismus, lymphadenopathy Respiratory exam: Present: normal lung sounds bilaterally. Absent: respiratory distress, wheezes, rales, rhonchi, stridor Cardiovascular Exam: Present: regular rate, normal rhythm, normal heart sounds. Absent: systolic murmur, diastolic murmur, rubs, gallop, clicks Neurological exam: Present: alert, oriented X3, CN II-XII intact, reflexes normal. Absent: motor sensory deficit Skin exam: Present: warm, dry, intact, normal color. Absent: rash Course Vital Signs 11/07/24 09:23 Temperature 97.8 F Pulse Rate 65 Respiratory 22 Rate Blood Pressure 126/79 O2 Sat by Pulse 98 Oximetry Medical Decision Making - Medical Decision Making Was pt. sent in by a medical professional or institution (, PA, SALESPERSON MEN'S HATS, urgent care, hospital, or senior care...) When possible be specific @ -No Did you speak to anyone other than the patient for history (EMS, parent, family, police, friend...)? What history was obtained from this source @ -No Did you review nursing and triage notes (agree or disagree)? Why? @ -I reviewed and agree with nursing and triage notes Were old charts reviewed (outside hosp., previous admission, EMS record, old EKG, old radiological studies, urgent care reports/EKG's, senior care records)? Report findings @ -No old charts were reviewed Differential Diagnosis (chest pain, altered mental status, abdominal pain women, abdominal pain men, vaginal bleeding, weakness, fever, dyspnea, syncope, headache, dizziness, GI bleed, back pain, seizure, CVA, palpatations, mental health, musculoskeletal)? @ -[Differential Abdominal Pain Men: Appendicitis, cholecystitis, diverticulosis, ischemic bowel, pancreatitis, hepatitis, UTI, gastroenteritis, AAA, incarcerated hernia, bowel obstruction, constipation, inflammatory bowel, hepatitis, peptic ulcer disease, splenic infarction, perforated viscus, testicular torsion, this is not meant to be an all-inclusive list EKG interpreted by me (3pts min.). @ -None X-rays interpreted by me (1pt min.). @ -None done CT interpreted by me (1pt min.). @ -None done U/S interpreted by me (1pt. min.). @ -None done What testing was considered but not performed or refused? (CT, X-rays, U/S, labs)? Why? @ -None What meds were considered but not given or refused? Why? @ -None Did you discuss the management of the patient with other professionals (professionals i.e. , PA, SALESPERSON MEN'S [employer]ATS, lab, RT, psych nurse, mental health social worker, rail doweling machine operator, teacher, ship's officer, transplant case manager)? Give summary @ -No Was smoking cessation discussed for >3mins.? @ -No Was critical care preformed (if so, how long)? @ -No Were there social determinants of health that impacted care today? How? (Homelessness, low income, unemployed, alcoholism, drug addiction, transp ortation, low edu. Level, literacy, decrease access to med. care, detention, rehab)? @ -No Was there de-escalation of care discussed even if they declined (Discuss DNR or withdrawal of care, Hospice)? DNR status @ -No What co-morbidities impacted this encounter? (DM, HTN, Smoking, COPD, CAD, Cancer, CVA, ARF, Chemo, Hep., AIDS, mental health diagnosis, sleep apnea, morbid obesity)? @ -None Was patient admitted / discharged? Hospital course, mention meds given and route, prescriptions, significant lab abnormalities, going to OR and other pertinent info. @ -This patient presented for chronic complaints he has no acute symptoms from his baseline. Patient was provided Toradol for his headache will be discharged in stable condition return parameters yogi. Undiagnosed new problem with uncertain prognosis? @ -No Drug Therapy requiring intensive monitoring for toxicity (Heparin, Nitro, Insulin, Cardizem)? @ -No Were any procedures done? @ -No Diagnosis/symptom? @ -Abdominal pain, headache Acute, or Chronic, or Acute on Chronic? @ -Acute Uncomplicated (without systemic symptoms) or Complicated (systemic symptoms)? @ -uncomplicated Side effects of treatment? @ -No Exacerbation, Progression, or Severe Exacerbation? @ -No Poses a threat to life or bodily function? How? (Chest pain, [place], [place], pneumonia, PE, COPD, DKA, ARF, appy, cholecystitis, CVA, Diverticulitis, Homicidal, Suicidal, threat to staff... and all critical care pts) @ -No Disposition Clinical Impression: Abdominal pain, Headache Disposition: HOME SELF-CARE Condition: Stable Instructions (If sedation given, give patient instructions): Acute Headache (ED) Additional Instructions: Please return to the Emergency Department if symptoms worsen or any other concerns. Is patient prescribed a controlled substance at d/c from ED?: No Referrals: None,Stated [Primary Care Provider] - 1-2 days Time of Disposition: 09:43
[2024-11-07] MEDS: KETOROLAC 15 MG/ML 1 ML VIAL IM STA (09:54)
[2024-11-07] MEDS: ONDANSETRON ODT 4 MG TAB PO STA (09:54)
== END 2024-11-07 10:07 | disposition home or self-care (01) ==
LOC: EC 09:21
DX: R51.9 Headache, unspecified (principal); R10.9 Unspecified abdominal pain; F17.200 Nicotine dependence, unspecified, uncomplicated; Z88.2 Allergy status to sulfonamides; Z88.1 Allergy status to other antibiotic agents; Z88.8 Allergy status to other drugs, medicaments and biological substances; Z88.0 Allergy status to penicillin; Z91.048 Other nonmedicinal substance allergy status; Z91.040 Latex allergy status
CPT/HCPCS: 99283

== ENCOUNTER 2024-11-14 12:55 | Emergency (ER) | payer MEDICARE, OTHER ==
[2024-11-14 12:59] VITALS: RESP 18; TEMP 97.5
[2024-11-14 13:16] LABS: Glucose,Whole Blood 424 mg/dL (70-110)
--- NOTE | 2024-11-14 13:22 | ED ---
General Adult HPI - General Chief complaint: ENT Stated complaint: Throat pain Time Seen by Provider: 11/14/24 13:03 Source: patient, RN notes reviewed Mode of arrival: ambulatory Limitations: no limitations - History of Present Illness Initial comments: Patient is a 54-year-old male present to the emergency department with concerns with throat discomfort. Patient states symptoms has been occurring for weeks on him. Patient has no difficulty with liquids. Patient occasionally has problems with solid foods or pills. Patient has some discomfort of his posterior pharynx. No fever. No cough. No dyspnea. Patient is concerned his blood sugar is high. Patient states he just today drank an energy drink - Related Data Home Medications Medication Instructions Recorded Confirmed Insulin Lispro [humaLOG Kwikpen] See Protocol SQ AC-TID 08/23/24 10/13/24 Albuterol Nebulized [Ventolin 2.5 mg INHALATION RT-Q6H PRN 09/30/24 10/13/24 Nebulized] Capsaicin Cream [Trixaicin Cream] 1 applic TOPICAL TID PRN 09/30/24 10/13/24 Fluticasone Furoate [Flonase 1 spray EA NOSTRIL BID PRN 09/30/24 10/13/24 Sensimist] Insulin Glargine,Hum.rec.anlog 15 unit SQ HS 09/30/24 10/13/24 [Insulin Glargine Solostar] Nicotine Polacrilex [Nicorette] 2 mg BC DIRECTED PRN 09/30/24 10/13/24 Ondansetron [Zofran] 4 mg PO Q8HR PRN 09/30/24 10/13/24 traZODone HCL [Desyrel] 100 mg PO HS 09/30/24 10/13/24 Ammonium Lactate [Amlactin] 1 applic TOPICAL DAILY 10/13/24 10/13/24 Previous Rx's Medication Instructions Recorded Aspirin EC [Ecotrin Low Dose] 81 mg PO DAILY 30 Days #30 tab 07/13/24 Pantoprazole [Protonix] 40 mg PO DAILY 30 Days #30 tab 07/13/24 Budesonide/Formoterol Fumarate 2 puff INHALATION RT-BID 30 Days 08/15/24 [Symbicort 80-4.5 Mcg Inhaler] #1 each Atorvastatin [Lipitor] 10 mg PO HS 30 Days #30 tab 09/19/24 Dapagliflozin Propanediol [Farxiga] 10 mg PO DAILY 30 Days #30 tab 09/19/24 Sertraline [Zoloft] 100 mg PO DAILY 30 Days #30 tab 09/19/24 busPIRone HCl [Buspar] 5 mg PO BID 30 Days #60 tab 09/19/24 ARIPiprazole IM SYRINGE [Abilify 400 mg IM QMONTHLY #1 each 10/04/24 Maintena Syringe] ARIPiprazole [Abilify] 15 mg PO DAILY 13 Days #13 tab 10/04/24 Allergies Allergy/AdvReac Type Severity Reaction Status Date / Time dicyclomine HCl [From Bentyl] Allergy Unknown Dyspnea Verified 11/14/24 12:59 latex Allergy Unknown Rash/Hives Verified 11/14/24 12:59 Benzoate Analogues Allergy Unknown Verified 11/14/24 12:59 benzonatate Allergy Unknown Verified 11/14/24 12:59 nitrofurantoin Allergy Nausea Verified 11/14/24 12:59 [From Macrobid] Penicillins Allergy "[place] Verified 11/14/24 12:59 funny" adhesive AdvReac Unknown Itching Verified 11/14/24 12:59 ciprofloxacin AdvReac Unknown Nausea Verified 11/14/24 12:59 Macrolide Antibiotics AdvReac Unknown Nausea Verified 11/14/24 12:59 sulfamethoxazole AdvReac Unknown Unknown Verified 11/14/24 12:59 [From Bactrim] trimethoprim [From Bactrim] AdvReac Unknown Unknown Verified 11/14/24 12:59 diphenhydramine AdvReac Confusion Verified 11/14/24 12:59 [From Benadryl] Review of Systems ROS Statement: Those systems with pertinent positive or pertinent negative responses have been documented in the HPI. ROS Other: All systems not noted in ROS Statement are negative. Constitutional: Denies: fever Eyes: Denies: eye pain ENT: Reports: as per HPI, throat pain Respiratory: Denies: dyspnea Cardiovascular: Denies: chest pain Gastrointestinal: Denies: abdominal pain Past Medical History Past Medical History: Asthma, Chest Pain / Angina, COPD, CVA/TIA, Diabetes Mellitus, GERD/Reflux, Hearing Disorder / Deafness, Hyperlipidemia, Hypertension, Liver Disease, Osteoarthritis (OA), Pneumonia, Seizure Disorder, Sleep Apnea/CPAP/BIPAP Additional Past Medical History / Comment(s): states CVA at 35 yrs old, no weakness @ this time. states seizure at 35 yrs old., DDD- back & neck pain., carpal tunnel syndrome. Has [employer] public guardian. History of Any Multi-Drug Resistant Organisms: Other MDRO Past Surgical History: Heart Catheterization, Orthopedic Surgery Additional Past Surgical History / Comment(s): Cysts removed, left thumb surgery, colonoscopy 08/24/2019. Skin tags removed from both eyes. Past Anesthesia/Blood Transfusion Reactions: Motion Sickness, Postoperative Nausea & Vomiting (PONV) Past Psychological History: Anxiety, Bipolar, Depression Smoking Status: Current every day smoker Past Alcohol Use History: Abuse Past Drug Use History: None Reported - Past Family History Brother(s) Family Medical History: Diabetes Mellitus Additional Family Medical History / Comment(s): Patient has 2 brothers. One from complications from diabetes. The second is alive with diabetes. Sister(s) Family Medical History: Cancer Additional Family Medical History / Comment(s): Patient has one sister with breast cancer. Patient does not have any children. Father Family Medical History: Cancer Additional Family Medical History / Comment(s): Father in his 40s or 50s from colon cancer. Mother Family Medical History: Cancer Additional Family Medical History / Comment(s): Mother at age 68 from lung cancer. General Exam Limitations: no limitations General appearance: alert, in no apparent distress Head exam: Present: normocephalic Eye exam: Present: normal appearance ENT exam: Present: normal oropharynx, other (No difficulty with bedside swallow eval of water) Neck exam: Present: normal inspection. Absent: lymphadenopathy Respiratory exam: Present: normal lung sounds bilaterally Cardiovascular Exam: Present: regular rate, normal rhythm GI/Abdominal exam: Present: soft. Absent: tenderness, pulsatile mass Extremities exam: Present: normal inspection. Absent: pedal edema, calf ten derness Neurological exam: Present: alert. Absent: motor sensory deficit Psychiatric exam: Present: normal affect, normal mood Skin exam: Present: normal color Course Vital Signs 11/14/24 12:56 Temperature 97.5 F L Pulse Rate 80 Respiratory 18 Rate Blood Pressure 132/80 O2 Sat by Pulse 98 Oximetry Medical Decision Making - Medical Decision Making Was pt. sent in by a medical professional or institution (, PA, FREELANCE WRITER, urgent care, hospital, or fdc...) When possible be specific @ - Did you speak to anyone other than the patient for history (EMS, parent, family, police, friend...)? What history was obtained from this source @ -No Did you review nursing and triage notes (agree or disagree)? Why? @ -I reviewed and agree with nursing and triage notes Were old charts reviewed (outside hosp., previous admission, EMS record, old EKG, old radiological studies, urgent care reports/EKG's, fdc records)? Report findings @ -No old charts were reviewed Differential Diagnosis (chest pain, altered mental status, abdominal pain women, abdominal pain men, vaginal bleeding, weakness, fever, dyspnea, syncope, headache, dizziness, GI bleed, back pain, seizure, CVA, palpatations, mental health, musculoskeletal)? @ -Differential Weakness: Hypoglycemia, shock, sepsis, hyponatremia, anemia, infection, AL, ETOH, adverse medicine reaction, overdose, stroke, this is not meant to be an all-inclusive list. EKG interpreted by me (3pts min.). @ -As above X-rays interpreted by me (1pt min.). @ -None done CT interpreted by me (1pt min.). @ -None done U/S interpreted by me (1pt. min.). @ -None done What testing was considered but not performed or refused? (CT, X-rays, U/S, labs)? Why? @ -None What meds were considered but not given or refused? Why? @ -None Did you discuss the management of the patient with other professionals (professionals i.e. , PA, FREELANCE WRITER, lab, RT, psych nurse, social sciences department chair, bean roaster, teacher, electorate officer, leather case finisher)? Give summary @ -No Was smoking cessation discussed for >3mins.? @ -No Was critical care preformed (if so, how long)? @ -No Were there social determinants of health that impacted care today? How? (Homelessness, low income, unemployed, alcoholism, drug addiction, transportation, low edu. Level, literacy, decrease access to med. care, long-term, rehab)? @ -No Was there de-escalation of care discussed even if they declined (Discuss DNR or withdrawal of care, Hospice)? DNR status @ -No What co-morbidities impacted this encounter? (DM, HTN, Smoking, COPD, CAD, Cancer, CVA, ARF, Chemo, Hep., AIDS, mental health diagnosis, sleep apnea, morbid obesity)? @ -History of diabetes Was patient admitted / discharged? Hospital course, mention meds given and route, prescriptions, significant lab abnormalities, going to OR and other pert inent info. @ -Patient presents with some difficulty swallowing. No difficulty with fluids. Patient will be discharged with follow-up for further evaluation including probable barium swallow possible scope. Patient has hyperglycemia that was treated in the emergency department. Patient discharged for follow-up. Undiagnosed new problem with uncertain prognosis? @ -No Drug Therapy requiring intensive monitoring for toxicity (Heparin, Nitro, Insulin, Cardizem)? @ -No Were any procedures done? @ -No Diagnosis/symptom? @ -Dysphagia Acute, or Chronic, or Acute on Chronic? @ -Acute Uncomplicated (without systemic symptoms) or Complicated (systemic symptoms)? @ -Complicated with hyperglycemia Side effects of treatment? @ -No Exacerbation, Progression, or Severe Exacerbation? @ -No Poses a threat to life or bodily function? How? (Chest pain, USA, AL, pneumonia, PE, COPD, DKA, ARF, appy, cholecystitis, CVA, Diverticulitis, Homicidal, Suicidal, threat to staff... and all critical care pts) @ -No - Lab Data Result diagrams: 11/14/24 13:27 11/14/24 13:27 Lab Results 11/14/24 11/14/24 11/14/24 Range/Units 13:15 13:27 13:27 WBC 12.19 H (4.50-10.00) 10*3/uL RBC 5.21 (4.40-5.60) 10*6/uL Hgb 15.4 (13.0-17.0) g/dL Hct 43.2 (39.6-50.0) % MCV 82.9 (80.0-97.0) fL MCH 29.6 (27.0-32.0) pg MCHC 35.6 (32.0-37.0) g/dL Plt Count 191 (140-440) 10*3/uL MPV 9.4 L (9.5-12.2) fL Immature Gran % (Auto) 1.5 % Neutrophils % 85.6 % Lymphocytes % 8.9 % Monocytes % 3.7 % Eosinophils % 0.1 % Basophils % 0.2 % Immature Gran # 0.18 H (0.00-0.04) 10*3/uL Neutrophils # 10.45 H (1.80-7.70) 10*3/uL Lymphocytes # 1.08 (0.90-5.00) 10*3/uL Monocytes # 0.45 (0.20-1.00) 10*3/uL Eosinophils # 0.01 L (0.04-0.35) 10*3/uL Basophils # 0.02 (0.00-0.10) 10*3/uL Sodium 135 L (137-145) mmol/L Potassium 4.1 (3.5-5.1) mmol/L Chloride 101 (98-107) mmol/L Carbon Dioxide 20 L (22-30) mmol/L Anion Gap 14 mmol/L BUN 17 (9-20) mg/dL Creatinine 0.71 (0.66-1.25) mg/dL Est GFR (CKD-EPI)AfAm >90 (>60 ml/min/1.73 sqM) Est GFR (CKD-EPI)NonAf >90 (>60 ml/min/1.73 sqM) Glucose 415 H (74-99) mg/dL POC Glucose (mg/dL) 424 H (70-110) mg/dL POC Glu Environmental Services Technician ID Manuel Romero Calcium 10.0 (8.4-10.2) mg/dL Total Bilirubin 0.5 (0.2-1.3) mg/dL AST 24 (17-59) U/L ALT 39 (4-49) U/L Alkaline Phosphatase 123 (38-126) U/L Total Protein 6.8 (6.3-8.2) g/dL Albumin 4.6 (3.5-5.0) g/dL Acetone, Qual Negative (Negative) 11/14/24 Range/Units 14:28 WBC (4.50-10.00) 10*3/uL RBC (4.40-5.60) 10*6/uL Hgb (13.0-17.0) g/dL Hct (39.6-50.0) % MCV (80.0-97.0) fL MCH (27.0-32.0) pg MCHC (32.0-37.0) g/dL Plt Count (140-440) 10*3/uL MPV (9.5-12.2) fL Immature Gran % (Auto) % Neutrophils % % Lymphocytes % % Monocytes % % Eosinophils % % Basophils % % Immature Gran # (0.00-0.04) 10*3/uL Neutrophils # (1.80-7.70) 10*3/uL Lymphocytes # (0.90-5.00) 10*3/uL Monocytes # (0.20-1.00) 10*3/uL Eosinophils # (0.04-0.35) 10*3/uL Basophils # (0.00-0.10) 10*3/uL Sodium (137-145) mmol/L Potassium (3.5-5.1) mmol/L Chloride (98-107) mmol/L Carbon Dioxide (22-30) mmol/L Anion Gap mmol/L BUN (9-20) mg/dL Creatinine (0.66-1.25) mg/dL Est GFR (CKD-EPI)AfAm (>60 ml/min/1.73 sqM) Est GFR (CKD-EPI)NonAf (>60 ml/min/1.73 sqM) Glucose (74-99) mg/dL POC Glucose (mg/dL) 313 H (70-110) mg/dL POC Glu Environmental Services Technician ID Lewis Hung Calcium (8.4-10.2) mg/dL Total Bilirubin (0.2-1.3) mg/dL AST (17-59) U/L ALT (4-49) U/L Alkaline Phosphatase (38-126) U/L Total Protein (6.3-8.2) g/dL Albumin (3.5-5.0) g/dL Acetone, Qual (Negative) Disposition Clinical Impression: Dysphagia, Hyperglycemia Disposition: HOME SELF-CARE Condition: Stable Instructions (If sedation given, give patient instructions): Diabetic Hyperglycemia (ED), Chronic Dysphagia (DC) Additional Instructions: Please do follow-up with your primary care doctor this week. Consider barium swallow. Consider scope. Return for not tolerating fluids, worsening or changing symptoms or any other concerns. Is patient prescribed a controlled substance at d/c from ED?: No Referrals: None,Stated [Primary Care Provider] - 1-2 days Lizbeth Rodriguez MD [RESIDENT] - 1-2 days Time of Disposition: 14:38
[2024-11-14] MEDS: SODIUM CHLORIDE 0.9% 1,000 ML IV STA (13:36)
[2024-11-14 13:40] LABS: Basophils # (A) 0.02 10*3/uL (0.00-0.10); Basophils % (A) 0.2 %; Eosinophils # (A) 0.01 10*3/uL (0.04-0.35); Eosinophils % (A) 0.1 %; HCT 43.2 % (39.6-50.0); HGB 15.4 g/dL (13.0-17.0); Lymphocytes # (A) 1.08 10*3/uL (0.90-5.00); Lymphocytes % (A) 8.9 %; MCH 29.6 pg (27.0-32.0); MCHC 35.6 g/dL (32.0-37.0); MCV 82.9 fL (80.0-97.0); Mean Platelet Volume 9.4 fL (9.5-12.2); Monocytes # (A) 0.45 10*3/uL (0.20-1.00); Monocytes % (A) 3.7 %; Neutrophils # (A) 10.45 10*3/uL (1.80-7.70); Neutrophils % (A) 85.6 %; Platelet Count 191 10*3/uL (140-440); RBC 5.21 10*6/uL (4.40-5.60); RDW 14.2 % (11.5-14.5); WBC 12.19 10*3/uL (4.50-10.00)
[2024-11-14] MEDS: INSULIN REGULAR 100 UNIT/ML VIAL (IV) IV ONE (13:49)
[2024-11-14 13:56] LABS: AST 24 U/L (17-59); African American GFR (CKD) >90 (>60 ml/min/1.73 sqM); Albumin 4.6 g/dL (3.5-5.0); Alkaline Phosphatase 123 U/L (38-126); Anion Gap 14 mmol/L; Blood Urea Nitrogen 17 mg/dL (9-20); Carbon Dioxide 20 mmol/L (22-30); Chloride 101 mmol/L (98-107); Glucose 415 mg/dL (74-99); Non-African American GFR(CKD) >90 (>60 ml/min/1.73 sqM); Potassium 4.1 mmol/L (3.5-5.1); Sodium 135 mmol/L (137-145); Total Bilirubin 0.5 mg/dL (0.2-1.3); Total Protein 6.8 g/dL (6.3-8.2)
[2024-11-14 14:09] LABS: ALT 39 U/L (4-49)
[2024-11-14 14:31] LABS: Glucose,Whole Blood 313 mg/dL (70-110)
[2024-11-14] MEDS: INSULIN REGULAR 100 UNIT/ML VIAL (IM/SQ) SQ ONE (14:38)
[2024-11-14 14:53] VITALS: BP 123/76; PULSE 66
== END 2024-11-14 14:53 | disposition home or self-care (01) ==
LOC: EC 12:55
DX: E11.65 Type 2 diabetes mellitus with hyperglycemia (principal); R13.10 Dysphagia, unspecified; F17.200 Nicotine dependence, unspecified, uncomplicated; Z86.73 Personal history of transient ischemic attack (TIA), and cerebral infarction without residual deficits; Z88.0 Allergy status to penicillin; Z91.040 Latex allergy status; Z88.8 Allergy status to other drugs, medicaments and biological substances; Z88.2 Allergy status to sulfonamides; Z88.1 Allergy status to other antibiotic agents
CPT/HCPCS: 36415; 80053; 82009; 85025; 96360; 99283

== ENCOUNTER 2024-11-15 11:49 | Emergency (ER) | payer MEDICARE, OTHER ==
--- NOTE | 2024-11-15 13:05 | ED ---
General Adult HPI - General Chief complaint: Recheck/Abnormal Lab/Rx Stated complaint: Abn Labs Time Seen by Provider: 11/15/24 12:07 Source: patient, RN notes reviewed Mode of arrival: wheelchair Limitations: no limitations - History of Present Illness Initial comments: 54-year-old male presents emergency department chief complaint of hyperglycemia. This been an ongoing issue. Unclear if he has been taking his medications appropriately states he has he states he ate a bunch of cereal this morning which made his blood sugar higher. He claims he has been drinking a large amount of water. Denies any fevers chills no chest pain no other complaints. - Related Data Home Medications Medication Instructions Recorded Confirmed Insulin Lispro [humaLOG Kwikpen] See Protocol SQ AC-TID 08/23/24 10/13/24 Albuterol Nebulized [Ventolin 2.5 mg INHALATION RT-Q6H PRN 09/30/24 10/13/24 Nebulized] Capsaicin Cream [Trixaicin Cream] 1 applic TOPICAL TID PRN 09/30/24 10/13/24 Fluticasone Furoate [Flonase 1 spray EA NOSTRIL BID PRN 09/30/24 10/13/24 Sensimist] Insulin Glargine,Hum.rec.anlog 15 unit SQ HS 09/30/24 10/13/24 [Insulin Glargine Solostar] Nicotine Polacrilex [Nicorette] 2 mg BC DIRECTED PRN 09/30/24 10/13/24 Ondansetron [Zofran] 4 mg PO Q8HR PRN 09/30/24 10/13/24 traZODone HCL [Desyrel] 100 mg PO HS 09/30/24 10/13/24 Ammonium Lactate [Amlactin] 1 applic TOPICAL DAILY 10/13/24 10/13/24 Previous Rx's Medication Instructions Recorded Aspirin EC [Ecotrin Low Dose] 81 mg PO DAILY 30 Days #30 tab 07/13/24 Pantoprazole [Protonix] 40 mg PO DAILY 30 Days #30 tab 07/13/24 Budesonide/Formoterol Fumarate 2 puff INHALATION RT-BID 30 Days 08/15/24 [Symbicort 80-4.5 Mcg Inhaler] #1 each Atorvastatin [Lipitor] 10 mg PO HS 30 Days #30 tab 09/19/24 Dapagliflozin Propanediol [Farxiga] 10 mg PO DAILY 30 Days #30 tab 09/19/24 Sertraline [Zoloft] 100 mg PO DAILY 30 Days #30 tab 09/19/24 busPIRone HCl [Buspar] 5 mg PO BID 30 Days #60 tab 09/19/24 ARIPiprazole IM SYRINGE [Abilify 400 mg IM QMONTHLY #1 each 10/04/24 Maintena Syringe] ARIPiprazole [Abilify] 15 mg PO DAILY 13 Days #13 tab 10/04/24 Allergies Allergy/AdvReac Type Severity Reaction Status Date / Time dicyclomine HCl [From Bentyl] Allergy Unknown Dyspnea Verified 11/15/24 12:04 latex Allergy Unknown Rash/Hives Verified 11/15/24 12:04 Benzoate Analogues Allergy Unknown Verified 11/15/24 12:04 benzonatate Allergy Unknown Verified 11/15/24 12:04 nitrofurantoin Allergy Nausea Verified 11/15/24 12:04 [From Macrobid] Penicillins Allergy "[place] Verified 11/15/24 12:04 funny" adhesive AdvReac Unknown Itching Verified 11/15/24 12:04 ciprofloxacin AdvReac Unknown Nausea Verified 11/15/24 12:04 Macrolide Antibiotics AdvReac Unknown Nausea Verified 11/15/24 12:04 sulfamethoxazole AdvReac Unknown Unknown Verified 11/15/24 12:04 [From Bactrim] trimethoprim [From Bactrim] AdvReac Unknown Unknown Verified 11/15/24 12:04 diphenhydramine AdvReac Confusion Verified 11/15/24 12:04 [From Benadryl] Review of Systems ROS Statement: Those systems with pertinent positive or pertinent negative responses have been documented in the HPI. ROS Other: All systems not noted in ROS Statement are negative. Past Medical History Past Medical History: Asthma, Chest Pain / Angina, COPD, CVA/TIA, Diabetes Mellitus, GERD/Reflux, Hearing Disorder / Deafness, Hyperlipidemia, Hypertension, Liver Disease, Osteoarthritis (OA), Pneumonia, Seizure Disorder, Sleep Apnea/CPAP/BIPAP Additional Past Medical History / Comment(s): states CVA at 35 yrs old, no weakness @ this time. states seizure at 35 yrs old., DDD- back & neck pain., carpal tunnel syndrome. Has [facility] public guardian. History of Any Multi-Drug Resistant Organisms: Other MDRO Past Surgical History: Heart Catheterization, Orthopedic Surgery Additional Past Surgical History / Comment(s): Cysts removed, left thumb surgery, colonoscopy 08/24/2019. Skin tags removed from both eyes. Past Anesthesia/Blood Transfusion Reactions: Motion Sickness, Postoperative Nausea & Vomiting (PONV) Past Psychological History: Anxiety, Bipolar, Depression Smoking Status: Current every day smoker Past Alcohol Use History: Abuse Past Drug Use History: None Reported - Past Family History Brother(s) Family Medical History: Diabetes Mellitus Additional Family Medical History / Comment(s): Patient has 2 brothers. One from complications from diabetes. The second is alive with diabetes. Sister(s) Family Medical History: Cancer Additional Family Medical History / Comment(s): Patient has one sister with breast cancer. Patient does not have any children. Father Family Medical History: Cancer Additional Family Medical History / Comment(s): Father in his 40s or 50s from colon cancer. Mother Family Medical History: Cancer Additional Family Medical History / Comment(s): Mother at age 68 from lung cancer. General Exam Limitations: no limitations General appearance: alert, in no apparent distress Head exam: Present: atraumatic, normocephalic, normal inspection Eye exam: Present: normal appearance, PERRL, EOMI. Absent: scleral icterus, c onjunctival injection, periorbital swelling ENT exam: Present: normal exam, normal oropharynx, mucous membranes moist Neck exam: Present: normal inspection, full ROM. Absent: tenderness, meningismus, lymphadenopathy Respiratory exam: Present: normal lung sounds bilaterally. Absent: respiratory distress, wheezes, rales, rhonchi, stridor Cardiovascular Exam: Present: regular rate, normal rhythm, normal heart sounds. Absent: systolic murmur, diastolic murmur, rubs, gallop, clicks Course Vital Signs 11/15/24 12:02 Temperature 98.6 F Pulse Rate 65 Respiratory 16 Rate Blood Pressure 112/72 O2 Sat by Pulse 97 Oximetry Medical Decision Making - Medical Decision Making Was pt. sent in by a medical professional or institution (, PA, CERTIFIED MASSAGE THERAPIST, urgent care, hospital, or long term...) When possible be specific @ -No Did you speak to anyone other than the patient for history (EMS, parent, family, police, friend...)? What history was obtained from this source @ -No Did you review nursing and triage notes (agree or disagree)? Why? @ -I reviewed and agree with nursing and triage notes Were old charts reviewed (outside hosp., previous admission, EMS record, old EKG, old radiological studies, urgent care reports/EKG's, long term records)? Report findings @ -No old charts were reviewed Differential Diagnosis (chest pain, altered mental status, abdominal pain women, abdominal pain men, vaginal bleeding, weakness, fever, dyspnea, syncope, headache, dizziness, GI bleed, back pain, seizure, CVA, palpatations, mental health, musculoskeletal)? @ -Hyperglycemia, diabetes EKG interpreted by me (3pts min.). @ -None X-rays interpreted by me (1pt min.). @ -None done CT interpreted by me (1pt min.). @ -None done U/S interpreted by me (1pt. min.). @ -None done What testing was considered but not performed or refused? (CT, X-rays, U/S, labs)? Why? @ -None What meds were considered but not given or refused? Why? @ -None Did you discuss the management of the patient with other professionals (professionals i.e. , PA, CERTIFIED MASSAGE THERAPIST, lab, RT, psych nurse, social worker health services, diet supervisor, teacher, chief operating officer, behavioral health case manager)? Give summary @ -No Was smoking cessation discussed for >3mins.? @ -No Was critical care preformed (if so, how long)? @ -No Were there social determinants of health that impacted care today? How? (Homelessness, low income, unemployed, alcoholism, drug addiction, t ransportation, low edu. Level, literacy, decrease access to med. care, residential, rehab)? @ -No Was there de-escalation of care discussed even if they declined (Discuss DNR or withdrawal of care, Hospice)? DNR status @ -No What co-morbidities impacted this encounter? (DM, HTN, Smoking, COPD, CAD, Cancer, CVA, ARF, Chemo, Hep., AIDS, mental health diagnosis, sleep apnea, morbid obesity)? @ -[Diabetes Was patient admitted / discharged? Hospital course, mention meds given and route, prescriptions, significant lab abnormalities, going to OR and other pertinent info. @ -Discharged patient was given insulin patient's no signs of SOB discharged in stable condition return for as discussed. Undiagnosed new problem with uncertain prognosis? @ -No Drug Therapy requiring intensive monitoring for toxicity (Heparin, Nitro, Insulin, Cardizem)? @ -No Were any procedures done? @ -No Diagnosis/symptom? @ -Hyperglycemia diabetes Acute, or Chronic, or Acute on Chronic? @ -Acute Uncomplicated (without systemic symptoms) or Complicated (systemic symptoms)? @ -Complicated Side effects of treatment? @ -No Exacerbation, Progression, or Severe Exacerbation? @ -No Poses a threat to life or bodily function? How? (Chest pain, [place], [place], pneumonia, PE, COPD, DKA, ARF, appy, cholecystitis, CVA, Diverticulitis, Homicidal, Suicidal, threat to staff... and all critical care pts) @ -No - Lab Data Lab Results 11/15/24 Range/Units 14:17 POC Glucose (mg/dL) 389 H (70-110) mg/dL POC Glu Stitch Bonding Machine Operator JEANCARLOS [place] Disposition Clinical Impression: Hyperglycemia Disposition: HOME SELF-CARE Condition: Stable Instructions (If sedation given, give patient instructions): Diabetic Hyperglycemia (ED) Additional Instructions: Please return to the Emergency Department if symptoms worsen or any other concerns. Is patient prescribed a controlled substance at d/c from ED?: No Referrals: None,Stated [Primary Care Provider] - 1-2 days Time of Disposition: 14:22
[2024-11-15 14:19] LABS: Glucose,Whole Blood 389 mg/dL (70-110)
[2024-11-15] MEDS: INSULIN LISPRO (HumaLOG) 100 UNIT/ML 10 mL VL SQ ONE (14:27)
[2024-11-15 14:39] VITALS: BP 118/68; PULSE 68; RESP 18; TEMP 98.1
== END 2024-11-15 14:39 | disposition home or self-care (01) ==
LOC: EC 11:49
DX: E11.65 Type 2 diabetes mellitus with hyperglycemia (principal); F17.200 Nicotine dependence, unspecified, uncomplicated; Z86.73 Personal history of transient ischemic attack (TIA), and cerebral infarction without residual deficits; Z88.0 Allergy status to penicillin; Z88.2 Allergy status to sulfonamides; Z88.8 Allergy status to other drugs, medicaments and biological substances; Z91.040 Latex allergy status; Z88.1 Allergy status to other antibiotic agents
CPT/HCPCS: 36415; 99284

== ENCOUNTER 2024-11-29 22:05 | Emergency (ER) | payer MEDICARE, OTHER ==
[2024-11-29] MEDS: SODIUM CHLORIDE 0.9% 500 ML 500 ML IV STA (22:25)
--- NOTE | 2024-11-29 22:45 | XR ---
EXAMINATION TYPE: XR chest 2V DATE OF EXAM: 11/29/2024 10:41 PM COMPARISON: None. CLINICAL INDICATION: Male, 54 years old with history of Chest Pain, TECHNIQUE: XR chest 2V view(s) obtained. FINDINGS: The heart size is normal. The pulmonary vasculature is normal. The lungs are clear. IMPRESSION: 1. No acute pulmonary process. [facility], , 11/29/2024 10:43 PM
[2024-11-29 22:48] LABS: Basophils # (A) 0.01 10*3/uL (0.00-0.10); Basophils % (A) 0.1 %; Eosinophils # (A) 0.29 10*3/uL (0.04-0.35); Eosinophils % (A) 4.2 %; HCT 40.4 % (39.6-50.0); HGB 14.4 g/dL (13.0-17.0); Lymphocytes # (A) 1.73 10*3/uL (0.90-5.00); Lymphocytes % (A) 24.9 %; MCH 29.8 pg (27.0-32.0); MCHC 35.6 g/dL (32.0-37.0); MCV 83.5 fL (80.0-97.0); Mean Platelet Volume 9.4 fL (9.5-12.2); Monocytes # (A) 0.48 10*3/uL (0.20-1.00); Monocytes % (A) 6.9 %; Neutrophils # (A) 4.36 10*3/uL (1.80-7.70); Neutrophils % (A) 62.7 %; Platelet Count 184 10*3/uL (140-440); RBC 4.84 10*6/uL (4.40-5.60); RDW 14.2 % (11.5-14.5); WBC 6.95 10*3/uL (4.50-10.00)
[2024-11-29 22:53] LABS: INR 0.9 (<1.2); Partial Thromboplastin Time 22.4 sec (22.0-30.0); Prothrombin Time 10.5 sec (10.0-12.5)
[2024-11-29 23:04] LABS: ALT 32 U/L (4-49); AST 26 U/L (17-59); African American GFR (CKD) >90 (>60 ml/min/1.73 sqM); Albumin 3.8 g/dL (3.5-5.0); Alkaline Phosphatase 92 U/L (38-126); Anion Gap 8 mmol/L; Blood Urea Nitrogen 13 mg/dL (9-20); Calcium 9.9 mg/dL (8.4-10.2); Carbon Dioxide 26 mmol/L (22-30); Chloride 103 mmol/L (98-107); Glucose 205 mg/dL (74-99); Magnesium 1.7 mg/dL (1.6-2.3); Non-African American GFR(CKD) >90 (>60 ml/min/1.73 sqM); Potassium 4.1 mmol/L (3.5-5.1); Sodium 137 mmol/L (137-145); Total Bilirubin 0.7 mg/dL (0.2-1.3); Total Protein 5.9 g/dL (6.3-8.2)
--- NOTE | 2024-11-29 23:31 | ED ---
General Adult HPI - General Chief complaint: Shortness of Breath Stated complaint: SOB Time Seen by Provider: 11/29/24 22:08 Source: patient Mode of arrival: EMS Limitations: no limitations - History of Present Illness Initial comments: This patient is 54-year-old man with history of asthma who presents for shortness of breath that he states has been coming on since starting one of his new medications.. He felt like he could not catch his breath. Mild cough no sputum. No fever or chills. Onset/Timin -: days(s) Severity scale (1-10): 0 Consistency: constant Improves with: none Worsens with: none Associated Symptoms: cough, shortness of breath - Related Data Home Medications Medication Instructions Recorded Confirmed Insulin Lispro [humaLOG Kwikpen] See Protocol SQ AC-TID 08/23/24 10/13/24 Albuterol Nebulized [Ventolin 2.5 mg INHALATION RT-Q6H PRN 09/30/24 10/13/24 Nebulized] Capsaicin Cream [Trixaicin Cream] 1 applic TOPICAL TID PRN 09/30/24 10/13/24 Fluticasone Furoate [Flonase 1 spray EA NOSTRIL BID PRN 09/30/24 10/13/24 Sensimist] Insulin Glargine,Hum.rec.anlog 15 unit SQ HS 09/30/24 10/13/24 [Insulin Glargine Solostar] Nicotine Polacrilex [Nicorette] 2 mg BC DIRECTED PRN 09/30/24 10/13/24 Ondansetron [Zofran] 4 mg PO Q8HR PRN 09/30/24 10/13/24 traZODone HCL [Desyrel] 100 mg PO HS 09/30/24 10/13/24 Ammonium Lactate [Amlactin] 1 applic TOPICAL DAILY 10/13/24 10/13/24 Previous Rx's Medication Instructions Recorded Aspirin EC [Ecotrin Low Dose] 81 mg PO DAILY 30 Days #30 tab 07/13/24 Pantoprazole [Protonix] 40 mg PO DAILY 30 Days #30 tab 07/13/24 Budesonide/Formoterol Fumarate 2 puff INHALATION RT-BID 30 Days 08/15/24 [Symbicort 80-4.5 Mcg Inhaler] #1 each Atorvastatin [Lipitor] 10 mg PO HS 30 Days #30 tab 09/19/24 Dapagliflozin Propanediol [Farxiga] 10 mg PO DAILY 30 Days #30 tab 09/19/24 Sertraline [Zoloft] 100 mg PO DAILY 30 Days #30 tab 09/19/24 busPIRone HCl [Buspar] 5 mg PO BID 30 Days #60 tab 09/19/24 ARIPiprazole IM SYRINGE [Abilify 400 mg IM QMONTHLY #1 each 10/04/24 Maintena Syringe] ARIPiprazole [Abilify] 15 mg PO DAILY 13 Days #13 tab 10/04/24 Allergies Allergy/AdvReac Type Severity Reaction Status Date / Time dicyclomine HCl [From Bentyl] Allergy Unknown Dyspnea Verified 12/14/24 14:33 latex Allergy Unknown Rash/Hives Verified 12/14/24 14:33 Benzoate Analogues Allergy Unknown Verified 12/14/24 14:33 benzonatate Allergy Unknown Verified 12/14/24 14:33 nitrofurantoin Allergy Nausea Verified 12/14/24 14:33 [From Macrobid] Penicillins Allergy "[place] Verified 12/14/24 14:33 funny" adhesive AdvReac Unknown Itching Verified 12/14/24 14:33 ciprofloxacin AdvReac Unknown Nausea Verified 12/14/24 14:33 Macrolide Antibiotics AdvReac Unknown Nausea Verified 12/14/24 14:33 sulfamethoxazole AdvReac Unknown Unknown Verified 12/14/24 14:33 [From Bactrim] trimethoprim [From Bactrim] AdvReac Unknown Unknown Verified 12/14/24 14:33 diphenhydramine AdvReac Confusion Verified 12/14/24 14:33 [From Benadryl] Review of Systems ROS Statement: Those systems with pertinent positive or pertinent negative responses have been documented in the HPI. ROS Other: All systems not noted in ROS Statement are negative. Constitutional: Denies: fever, chills Respiratory: Reports: cough, dyspnea, wheezes. Denies: hemoptysis Cardiovascular: Denies: chest pain, palpitations, edema Gastrointestinal: Denies: abdominal pain, vomiting, diarrhea Genitourinary: Denies: dysuria, hematuria Musculoskeletal: Denies: back pain Skin: Denies: rash Neurological: Denies: headache, weakness Past Medical History Past Medical History: Asthma, Chest Pain / Angina, COPD, CVA/TIA, Diabetes Mellitus, GERD/Reflux, Hearing Disorder / Deafness, Hyperlipidemia, Hypertension, Liver Disease, Osteoarthritis (OA), Pneumonia, Seizure Disorder, Sleep Apnea/CPAP/BIPAP Additional Past Medical History / Comment(s): states CVA at 35 yrs old, no weakness @ this time. states seizure at 35 yrs old., DDD- back & neck pain., car pal tunnel syndrome. Has [employer] public guardian. History of Any Multi-Drug Resistant Organisms: None Reported, Other MDRO Past Surgical History: Heart Catheterization, Orthopedic Surgery Additional Past Surgical History / Comment(s): Cysts removed, left thumb surgery, colonoscopy 08/24/2019. Skin tags removed from both eyes. Past Anesthesia/Blood Transfusion Reactions: Motion Sickness, Postoperative Nausea & Vomiting (PONV) Past Psychological History: Anxiety, Bipolar, Depression Smoking Status: Current every day smoker Past Alcohol Use History: Abuse Past Drug Use History: None Reported - Past Family History Brother(s) Family Medical History: Diabetes Mellitus Additional Family Medical History / Comment(s): Patient has 2 brothers. One from complications from diabetes. The second is alive with diabetes. Sister(s) Family Medical History: Cancer Additional Family Medical History / Comment(s): Patient has one sister with breast cancer. Patient does not have any children. Father Family Medical History: Cancer Additional Family Medical History / Comment(s): Father in his 40s or 50s from colon cancer. Mother Family Medical History: Cancer Additional Family Medical History / Comment(s): Mother at age 68 from lung cancer. General Exam Limitations: no limitations General appearance: alert, in no apparent distress Head exam: Present: atraumatic, normocephalic Eye exam: Present: normal appearance. Absent: scleral icterus, conjunctival injection ENT exam: Present: normal oropharynx Neck exam: Present: normal inspection, full ROM Respiratory exam: Present: normal lung sounds bilaterally. Absent: respiratory distress, wheezes, rales, rhonchi, stridor, accessory muscle use Cardiovascular Exam: Present: regular rate, normal rhythm, normal heart sounds. Absent: systolic murmur, diastolic murmur, rubs, gallop GI/Abdominal exam: Present: soft, rigid. Absent: distended, tenderness, guarding, rebound, mass Extremities exam: Present: normal inspection, normal capillary refill. Absent: pedal edema, calf tenderness Back exam: Present: normal inspection. Absent: CVA tenderness (R), CVA tenderness (L) Neurological exam: Present: alert Skin exam: Present: warm, dry, intact, normal color. Absent: rash Course Vital Signs 11/29/24 11/30/24 22:06 00:52 Temperature 98.1 F 97.7 F Pulse Rate 78 65 Respiratory 18 17 Rate Blood Pressure 120/74 131/86 O2 Sat by Pulse 94 L 96 Oximetry EKG Findings - EKG Results: EKG: interpreted by [employer], sinus rhythm (Rate 74 bpm) - Blocks, [place], Hypertrophy, ST Abn: AV and intraventricular conduction: right bundle branch block (fixed/intermittent, complete/incomplete) (Incomplete) QRS axis and voltage: left axis deviation (-30 to -90) (Borderline) Repolarization changes or abnormalities: nonspecific abnormality, ST segment, and/or T wave Medical Decision Making - Medical Decision Making The patient had chest x-ray that I interpreted as negative for acute infiltrate, pneumothorax, congestive heart failure Was pt. sent in by a medical professional or institution ([facility], INSTRUCTIONAL SYSTEMS DESIGNER, urgent care, hospital, or senior living...) When possible be specific @ -[No] Did you speak to anyone other than the patient for history (EMS, parent, family, police, friend...)? What history was obtained from this source @ -[No] Did you review nursing and triage notes (agree or disagree)? Why? @ -[I reviewed and agree with nursing and triage notes] Were old charts reviewed (outside hosp., previous admission, EMS record, old EKG, old radiological studies, urgent care reports/EKG's, senior living records)? Report findings @ -[No old charts were reviewed] Differential Diagnosis (chest pain, altered mental status, abdominal pain women, abdominal pain men, vaginal bleeding, weakness, fever, dyspnea, syncope, headache, dizziness, GI bleed, back pain, seizure, CVA, palpatations, mental health, musculoskeletal)? @ -[Differential Dyspnea: Coronary syndrome, arrhythmia, tamponade, asthma, COPD, pulmonary embolism, pneumonia, pneumothorax, pulmonary effusion, anaphylaxis, diabetic ketoacidosis, flailed chest, pulmonary contusion, diaphragmatic rupture, anemia, neuromusc ular, this is not meant to be an all-inclusive list. EKG interpreted by me (3pts min.). @ -[I interpreted as above] X-rays interpreted by me (1pt min.). @ -[I interpreted as above CT interpreted by me (1pt min.). @ -[None done] U/S interpreted by me (1pt. min.). @ -[None done] What testing was considered but not performed or refused? (CT, X-rays, U/S, labs)? Why? @ -[None] What meds were considered but not given or refused? Why? @ -[None] Did you discuss the management of the patient with other professionals (professionals i.e. DrRedd, PA, INSTRUCTIONAL SYSTEMS DESIGNER, lab, RT, psych nurse, psychologist social, underwriting specialist, teacher, flight deck officer, case reviewer)? Give summary @ -[No] Was smoking cessation discussed for >3mins.? @ -[No] Was critical care preformed (if so, how long)? @ -[No] Were there social determinants of health that impacted care today? How? (Homelessness, low income, unemployed, alcoholism, drug addiction, transportation, low edu. Level, literacy, decrease access to med. care, care home, rehab)? @ -[No] Was there de-escalation of care discussed even if they declined (Discuss DNR or withdrawal of care, Hospice)? DNR status @ -[No] What co-morbidities impacted this encounter? (DM, HTN, Smoking, COPD, CAD, Cancer, CVA, ARF, Chemo, Hep., AIDS, mental health diagnosis, sleep apnea, morbid obesity)? @ -[History of asthma Was patient admitted / discharged? Hospital course, mention meds given and route, prescriptions, significant lab abnormalities, going to OR and other pertinent info. @ -[Patient is 54-year-old man here after he started to feel short of breath after taking new medication. The patient's physical exam does reveal good air entry, no real significant wheeze today. He is observed and was starting to feel better, we discussed appropriate further care and follow-up as well as return parameters. Undiagnosed new problem with uncertain prognosis? @ -[No] Drug Therapy requiring intensive monitoring for toxicity (Heparin, Nitro, Insulin, Cardizem)? @ -[No] Were any procedures done? @ -[No] Diagnosis/symptom? @ -[Medication reaction Acute, or Chronic, or Acute on Chronic? @ -Acute Uncomplicated (without systemic symptoms) or Complicated (systemic symptoms)? @ -Uncomplicated Side effects of treatment? @ -[No] Exacerbation, Progression, or Severe Exacerbation? @ -[No] Poses a threat to life or bodily function? How? (Chest pain, [place], CA, pneumonia, PE, COPD, DKA, ARF, appy, cholecystitis, CVA, Diverticulitis, Homicidal, Suicidal, threat to staff... and all critical care pts) @ -[No] All treatments are based on ideal body weight as in ED triage - Lab Data Result diagrams: 11/29/24 22:27 11/29/24 22:27 Lab Results 11/29/24 11/29/24 11/29/24 Range/Units 22:27 22:27 22:27 WBC 6.95 (4.50-10.00) 10*3/uL RBC 4.84 (4.40-5.60) 10*6/uL Hgb 14.4 (13.0-17.0) g/dL Hct 40.4 (39.6-50.0) % MCV 83.5 (80.0-97.0) fL MCH 29.8 (27.0-32.0) pg MCHC 35.6 (32.0-37.0) g/dL Plt Count 184 (140-440) 10*3/uL MPV 9.4 L (9.5-12.2) fL Immature Gran % (Auto) 1.2 % Neutrophils % 62.7 % Lymphocytes % 24.9 % Monocytes % 6.9 % Eosinophils % 4.2 % Basophils % 0.1 % Immature Gran # 0.08 H (0.00-0.04) 10*3/uL Neutrophils # 4.36 (1.80-7.70) 10*3/uL Lymphocytes # 1.73 (0.90-5.00) 10*3/uL Monocytes # 0.48 (0.20-1.00) 10*3/uL Eosinophils # 0.29 (0.04-0.35) 10*3/uL Basophils # 0.01 (0.00-0.10) 10*3/uL PT 10.5 (10.0-12.5) sec INR 0.9 (<1.2) APTT 22.4 (22.0-30.0) sec Sodium 137 (137-145) mmol/L Potassium 4.1 (3.5-5.1) mmol/L Chloride 103 (98-107) mmol/L Carbon Dioxide 26 (22-30) mmol/L Anion Gap 8 mmol/L BUN 13 (9-20) mg/dL Creatinine 0.60 L (0.66-1.25) mg/dL Est GFR (CKD-EPI)AfAm >90 (>60 ml/min/1.73 sqM) Est GFR (CKD-EPI)NonAf >90 (>60 ml/min/1.73 sqM) Glucose 205 H (74-99) mg/dL Calcium 9.9 (8.4-10.2) mg/dL Magnesium 1.7 (1.6-2.3) mg/dL Total Bilirubin 0.7 (0.2-1.3) mg/dL AST 26 (17-59) U/L ALT 32 (4-49) U/L Alkaline Phosphatase 92 (38-126) U/L Troponin I (0.000-0.034) ng/mL Total Protein 5.9 L (6.3-8.2) g/dL Albumin 3.8 (3.5-5.0) g/dL 11/29/24 Range/Units 22:27 WBC (4.50-10.00) 10*3/uL RBC (4.40-5.60) 10*6/uL Hgb (13.0-17.0) g/dL Hct (39.6-50.0) % MCV (80.0-97.0) fL MCH (27.0-32.0) pg MCHC (32.0-37.0) g/dL Plt Count (140-440) 10*3/uL MPV (9.5-12.2) fL Immature Gran % (Auto) % Neutrophils % % Lymphocytes % % Monocytes % % Eosinophils % % Basophils % % Immature Gran # (0.00-0.04) 10*3/uL Neutrophils # (1.80-7.70) 10*3/uL Lymphocytes # (0.90-5.00) 10*3/uL Monocytes # (0.20-1.00) 10*3/uL Eosinophils # (0.04-0.35) 10*3/uL Basophils # (0.00-0.10) 10*3/uL PT (10.0-12.5) sec INR (<1.2) APTT (22.0-30.0) sec Sodium (137-145) mmol/L Potassium (3.5-5.1) mmol/L Chloride (98-107) mmol/L Carbon Dioxide (22-30) mmol/L Anion Gap mmol/L BUN (9-20) mg/dL Creatinine (0.66-1.25) mg/dL Est GFR (CKD-EPI)AfAm (>60 ml/min/1.73 sqM) Est GFR (CKD-EPI)NonAf (>60 ml/min/1.73 sqM) Glucose (74-99) mg/dL Calcium (8.4-10.2) mg/dL Magnesium (1.6-2.3) mg/dL Total Bilirubin (0.2-1.3) mg/dL AST (17-59) U/L ALT (4-49) U/L Alkaline Phosphatase (38-126) U/L Troponin I <0.012 (0.000-0.034) ng/mL Total Protein (6.3-8.2) g/dL Albumin (3.5-5.0) g/dL Disposition Clinical Impression: Medication side effect Disposition: HOME SELF-CARE Condition: Good Instructions (If sedation given, give patient instructions): Adverse Drug Reaction (ED) Is patient prescribed a controlled substance at d/c from ED?: No Referrals: Compa Lopez MD [Primary Care Provider] - 1-2 days
[2024-11-30 01:03] VITALS: BP 131/86; PULSE 65; RESP 17; TEMP 97.7
== END 2024-11-30 01:03 | disposition home or self-care (01) ==
LOC: EC 22:05
DX: I45.10 Unspecified right bundle-branch block (principal); T50.905A Adverse effect of unspecified drugs, medicaments and biological substances, initial encounter; J44.89 Other specified chronic obstructive pulmonary disease; F17.200 Nicotine dependence, unspecified, uncomplicated; Z88.0 Allergy status to penicillin; Z88.1 Allergy status to other antibiotic agents; Z88.2 Allergy status to sulfonamides; Z88.8 Allergy status to other drugs, medicaments and biological substances; Z91.040 Latex allergy status; Z86.73 Personal history of transient ischemic attack (TIA), and cerebral infarction without residual deficits
CPT/HCPCS: 36415; 71046; 80053; 83735; 84484; 85025; 85610; 85730; 93005; 99285

== ENCOUNTER 2024-12-01 16:56 | Emergency (ER) | payer MEDICARE, OTHER ==
[2024-12-01 17:05] VITALS: RESP 19
[2024-12-01 17:09] LABS: Glucose,Whole Blood 300 mg/dL (70-110)
--- NOTE | 2024-12-01 17:28 | ED ---
General Adult HPI - General Chief complaint: Abdominal Pain Stated complaint: Chest Pain Time Seen by Provider: 12/01/24 17:25 Source: patient, EMS, RN notes reviewed Mode of arrival: EMS Limitations: no limitations - History of Present Illness Initial comments: 54-year-old male well-known to the emergency department presenting for hyperglycemia. Also reports some chest pain that is chronic in nature. States he was discharged today from [facility] after being admitted for chest pain and he was told to follow-up with a primary care doctor and pocket secretary assembler. States he takes insulin daily as directed but reports his sugars remain high despite taking the medications as directed. Denies fever, nausea, vomiting, abdominal pain. - Related Data Home Medications Medication Instructions Recorded Confirmed Insulin Lispro [humaLOG Kwikpen] See Protocol SQ AC-TID 08/23/24 10/13/24 Albuterol Nebulized [Ventolin 2.5 mg INHALATION RT-Q6H PRN 09/30/24 10/13/24 Nebulized] Capsaicin Cream [Trixaicin Cream] 1 applic TOPICAL TID PRN 09/30/24 10/13/24 Fluticasone Furoate [Flonase 1 spray EA NOSTRIL BID PRN 09/30/24 10/13/24 Sensimist] Insulin Glargine,Hum.rec.anlog 15 unit SQ HS 09/30/24 10/13/24 [Insulin Glargine Solostar] Nicotine Polacrilex [Nicorette] 2 mg BC DIRECTED PRN 09/30/24 10/13/24 Ondansetron [Zofran] 4 mg PO Q8HR PRN 09/30/24 10/13/24 traZODone HCL [Desyrel] 100 mg PO HS 09/30/24 10/13/24 Ammonium Lactate [Amlactin] 1 applic TOPICAL DAILY 10/13/24 10/13/24 Previous Rx's Medication Instructions Recorded Aspirin EC [Ecotrin Low Dose] 81 mg PO DAILY 30 Days #30 tab 07/13/24 Pantoprazole [Protonix] 40 mg PO DAILY 30 Days #30 tab 07/13/24 Budesonide/Formoterol Fumarate 2 puff INHALATION RT-BID 30 Days 08/15/24 [Symbicort 80-4.5 Mcg Inhaler] #1 each Atorvastatin [Lipitor] 10 mg PO HS 30 Days #30 tab 09/19/24 Dapagliflozin Propanediol [Farxiga] 10 mg PO DAILY 30 Days #30 tab 09/19/24 Sertraline [Zoloft] 100 mg PO DAILY 30 Days #30 tab 09/19/24 busPIRone HCl [Buspar] 5 mg PO BID 30 Days #60 tab 09/19/24 ARIPiprazole IM SYRINGE [Abilify 400 mg IM QMONTHLY #1 each 10/04/24 Maintena Syringe] ARIPiprazole [Abilify] 15 mg PO DAILY 13 Days #13 tab 10/04/24 Allergies Allergy/AdvReac Type Severity Reaction Status Date / Time dicyclomine HCl [From Bentyl] Allergy Unknown Dyspnea Verified 12/01/24 18:14 latex Allergy Unknown Rash/Hives Verified 12/01/24 18:14 Benzoate Analogues Allergy Unknown Verified 12/01/24 18:14 benzonatate Allergy Unknown Verified 12/01/24 18:14 nitrofurantoin Allergy Nausea Verified 12/01/24 18:14 [From Macrobid] Penicillins Allergy "[place] Verified 12/01/24 18:14 funny" adhesive AdvReac Unknown Itching Verified 12/01/24 18:14 ciprofloxacin AdvReac Unknown Nausea Verified 12/01/24 18:14 Macrolide Antibiotics AdvReac Unknown Nausea Verified 12/01/24 18:14 sulfamethoxazole AdvReac Unknown Unknown Verified 12/01/24 18:14 [From Bactrim] trimethoprim [From Bactrim] AdvReac Unknown Unknown Verified 12/01/24 18:14 diphenhydramine AdvReac Confusion Verified 12/01/24 18:14 [From Benadryl] Review of Systems ROS Statement: Those systems with pertinent positive or pertinent negative responses have been documented in the HPI. ROS Other: All systems not noted in ROS Statement are negative. Past Medical History Past Medical History: Asthma, Chest Pain / Angina, COPD, CVA/TIA, Diabetes Mellitus, GERD/Reflux, Hearing Disorder / Deafness, Hyperlipidemia, Hypertension, Liver Disease, Osteoarthritis (OA), Pneumonia, Seizure Disorder, Sleep Apnea/CPAP/BIPAP Additional Past Medical History / Comment(s): states CVA at 35 yrs old, no weakness @ this time. states seizure at 35 yrs old., DDD- back & neck pain., carpal tunnel syndrome. Has [facility] public guardian. History of Any Multi-Drug Resistant Organisms: None Reported, Other MDRO Past Surgical History: Heart Catheterization, Orthopedic Surgery Additional Past Surgical History / Comment(s): Cysts removed, left thumb surgery, colonoscopy 08/24/2019. Skin tags removed from both eyes. Past Anesthesia/Blood Transfusion Reactions: Motion Sickness, Postoperative Nausea & Vomiting (PONV) Past Psychological History: Anxiety, Bipolar, Depression Smoking Status: Current every day smoker Past Alcohol Use History: Abuse Past Drug Use History: None Reported - Past Family History Brother(s) Family Medical History: Diabetes Mellitus Additional Family Medical History / Comment(s): Patient has 2 brothers. One from complications from diabetes. The second is alive with diabetes. Sister(s) Family Medical History: Cancer Additional Family Medical History / Comment(s): Patient has one sister with breast cancer. Patient does not have any children. Father Family Medical History: Cancer Additional Family Medical History / Comment(s): Father in his 40s or 50s from colon cancer. Mother Family Medical History: Cancer Additional Family Medical History / Comment(s): Mother at age 68 from lung cancer. General Exam Limitations: no limitations General appearance: alert, in no apparent distress Head exam: Present: atraumatic, normocephalic, normal inspection Eye exam: Present: normal appearance, PERRL, EOMI. Absent: scleral icterus, conjunctival injection, periorbital swelling ENT exam: Present: normal exam, mucous membranes moist Respiratory exam: Present: normal lung sounds bilaterally. Absent: respiratory distress, wheezes, rales, rhonchi, stridor Cardiovascular Exam: Present: regular rate, normal rhythm, normal heart sounds. Absent: systolic murmur, diastolic murmur, rubs, gallop, clicks GI/Abdominal exam: Present: soft, normal bowel sounds. Absent: distended, tenderness, guarding, rebound, rigid Neurological exam: Present: alert, oriented X3 Psychiatric exam: Present: normal affect, normal mood Skin exam: Present: warm, dry, intact, normal color. Absent: rash Course Vital Signs 12/01/24 17:00 Temperature 98.7 F Pulse Rate 72 Respiratory 19 Rate Blood Pressure 129/85 O2 Sat by Pulse 97 Oximetry EKG Findings - EKG Results: EKG: interpreted by ERMD (EKG reveals normal sinus rhythm with no acute ST changes. Ventricular rate 66 bpm, W[place] interval 152, QRS duration 105, QT/QTc 408/422) Medical Decision Making - Medical Decision Making Was pt. sent in by a medical professional or institution (SEAN Cordova, GEOTECHNICIAN, urgent care, hospital, or usp...) When possible be specific @ -No Did you speak to anyone other than the patient for history (EMS, parent, family, police, friend...)? What history was obtained from this source @ -No Did you review nursing and triage notes (agree or disagree)? Why? @ -I reviewed and agree with nursing and triage notes Were old charts reviewed (outside hosp., previous admission, EMS record, old EKG, old radiological studies, urgent care reports/EKG's, usp records)? Report findings @ -No old charts were reviewed Differential Diagnosis (chest pain, altered mental status, abdominal pain women, abdominal pain men, vaginal bleeding, weakness, fever, dyspnea, syncope, headache, dizziness, GI bleed, back pain, seizure, CVA, palpatations, mental health, musculoskeletal)? @ -Hyperglycemia, DKA, HHS EKG interpreted by me (3pts min.). @ -As above X-rays interpreted by me (1pt min.). @ -None done CT interpreted by me (1pt min.). @ -None done U/S interpreted by me (1pt. min.). @ -None done What testing was considered but not performed or refused? (CT, X-rays, U/S, labs)? Why? @ -None What meds were considered but not given or refused? Why? @ -None Did you discuss the management of the patient with other professionals (professionals i.e. SEAN Cordova, GEOTECHNICIAN, lab, RT, psych nurse, social worker school, public speaking teacher, teacher, special forces officer, case hardener)? Give summary @ -No Was smoking cessation discussed for >3mins.? @ -No Was critical care preformed (if so, how long)? @ -No Were there social determinants of health that impacted care today? How? (Homelessness, low income, unemployed, alcoholism, drug addiction, transportation, low edu. Level, literacy, decrease access to med. care, [facility], rehab)? @ -No Was there de-escalation of care discussed even if they declined (Discuss DNR or withdrawal of care, Hospice)? DNR status @ -No What co-morbidities impacted this encounter? (DM, HTN, Smoking, COPD, CAD, Can cer, CVA, ARF, Chemo, Hep., AIDS, mental health diagnosis, sleep apnea, morbid obesity)? @ -None Was patient admitted / discharged? Hospital course, mention meds given and route, prescriptions, significant lab abnormalities, going to OR and other pertinent info. @ -Discharge. 54-year-old male well-known to emergency department presenting for hyperglycemia. Patient does have chest pain that he states is chronic in nature. Blood glucose is 300 at time of arrival to the ER. Patient is well-appearing, no acute distress. Patient is provided with IV fluids and insulin and reports improvement of symptoms and blood sugar decreases to 220. No ketonuria. Negative acetone. Patient can be safely discharged with close outpatient follow-up and strict return precautions. Case was discussed with my ED attending Dr. Felix. Undiagnosed new problem with uncertain prognosis? @ -No Drug Therapy requiring intensive monitoring for toxicity (Heparin, Nitro, Insulin, Cardizem)? @ -No Were any procedures done? @ -No Diagnosis/symptom? @ -Hyperglycemia Acute, or Chronic, or Acute on Chronic? @ -Acute Uncomplicated (without systemic symptoms) or Complicated (systemic symptoms)? @ -Uncomplicated Side effects of treatment? @ -No Exacerbation, Progression, or Severe Exacerbation? @ -No Poses a threat to life or bodily function? How? (Chest pain, [place], [place], pneumonia, PE, COPD, DKA, ARF, appy, cholecystitis, CVA, Diverticulitis, Homicidal, Suicidal, threat to staff... and all critical care pts) @ -No - Lab Data Result diagrams: 12/01/24 17:37 12/01/24 18:36 Lab Results 12/01/24 12/01/24 12/01/24 Range/Units 17:07 17:37 17:37 WBC 5.79 (4.50-10.00) 10*3/uL RBC 4.41 (4.40-5.60) 10*6/uL Hgb 13.1 (13.0-17.0) g/dL Hct 37.4 L (39.6-50.0) % MCV 84.8 (80.0-97.0) fL MCH 29.7 (27.0-32.0) pg MCHC 35.0 (32.0-37.0) g/dL Plt Count 164 (140-440) 10*3/uL MPV 10.1 (9.5-12.2) fL Immature Gran % (Auto) 1.0 % Neutrophils % 69.6 % Lymphocytes % 19.2 % Monocytes % 5.9 % Eosinophils % 4.1 % Basophils % 0.2 % Immature Gran # 0.06 H (0.00-0.04) 10*3/uL Neutrophils # 4.03 (1.80-7.70) 10*3/uL Lymphocytes # 1.11 (0.90-5.00) 10*3/uL Monocytes # 0.34 (0.20-1.00) 10*3/uL Eosinophils # 0.24 (0.04-0.35) 10*3/uL Basophils # 0.01 (0.00-0.10) 10*3/uL Sodium (137-145) mmol/L Potassium (3.5-5.1) mmol/L Chloride (98-107) mmol/L Carbon Dioxide (22-30) mmol/L Anion Gap mmol/L BUN (9-20) mg/dL Creatinine (0.66-1.25) mg/dL Est GFR (CKD-EPI)AfAm (>60 ml/min/1.73 sqM) Est GFR (CKD-EPI)NonAf (>60 ml/min/1.73 sqM) Glucose (74-99) mg/dL POC Glucose (mg/dL) 300 H (70-110) mg/dL POC Glu Test Analyst ID Kenyon Salgado Calcium (8.4-10.2) mg/dL Total Bilirubin (0.2-1.3) mg/dL AST (17-59) U/L ALT (4-49) U/L Alkaline Phosphatase (38-126) U/L Total Protein (6.3-8.2) g/dL Albumin (3.5-5.0) g/dL Urine Color Urine Appearance (Clear) Urine pH (5.0-8.0) Ur Specific [place] (1.001-1.035) Urine Protein (Negative) Urine Glucose (UA) (Negative) Urine Ketones (Negative) Urine Blood (Negative) Urine Nitrite (Negative) Urine Bilirubin (Negative) Urine Urobilinogen (<2.0) mg/dL Ur Leukocyte Esterase (Negative) Acetone, Qual Negative (Negative) 12/01/24 12/01/24 Range/Units 18:36 18:39 WBC (4.50-10.00) 10*3/uL RBC (4.40-5.60) 10*6/uL Hgb (13.0-17.0) g/dL Hct (39.6-50.0) % MCV (80.0-97.0) fL MCH (27.0-32.0) pg MCHC (32.0-37.0) g/dL Plt Count (140-440) 10*3/uL MPV (9.5-12.2) fL Immature Gran % (Auto) % Neutrophils % % Lymphocytes % % Monocytes % % Eosinophils % % Basophils % % Immature Gran # (0.00-0.04) 10*3/uL Neutrophils # (1.80-7.70) 10*3/uL Lymphocytes # (0.90-5.00) 10*3/uL Monocytes # (0.20-1.00) 10*3/uL Eosinophils # (0.04-0.35) 10*3/uL Basophils # (0.00-0.10) 10*3/uL Sodium 137 (137-145) mmol/L Potassium 4.8 (3.5-5.1) mmol/L Chloride 109 H (98-107) mmol/L Carbon Dioxide 25 (22-30) mmol/L Anion Gap 3 mmol/L BUN 14 (9-20) mg/dL Creatinine 0.69 (0.66-1.25) mg/dL Est GFR (CKD-EPI)AfAm >90 (>60 ml/min/1.73 sqM) Est GFR (CKD-EPI)NonAf >90 (>60 ml/min/1.73 sqM) Glucose 220 H (74-99) mg/dL POC Glucose (mg/dL) (70-110) mg/dL POC Glu Test Analyst ID Calcium 8.3 L (8.4-10.2) mg/dL Total Bilirubin 0.7 (0.2-1.3) mg/dL AST 33 (17-59) U/L ALT 26 (4-49) U/L Alkaline Phosphatase 60 (38-126) U/L Total Protein 5.1 L (6.3-8.2) g/dL Albumin 3.0 L (3.5-5.0) g/dL Urine Color Colorless Urine Appearance Clear (Clear) Urine pH 6.5 (5.0-8.0) Ur Specific [place] 1.016 (1.001-1.035) Urine Protein Negative (Negative) Urine Glucose (UA) 4+ H (Negative) Urine Ketones Negative (Negative) Urine Blood Negative (Negative) Urine Nitrite Negative (Negative) Urine Bilirubin Negative (Negative) Urine Urobilinogen <2.0 (<2.0) mg/dL Ur Leukocyte Esterase Negative (Negative) Acetone, Qual (Negative) Disposition Clinical Impression: Hyperglycemia Disposition: HOME SELF-CARE Condition: Stable Instructions (If sedation given, give patient instructions): Diabetic Hyperglycemia (ED) Additional Instructions: Please follow-up with your PCP. Please return to the Emergency Department if symptoms worsen or any other concerns. Is patient prescribed a controlled substance at d/c from ED?: No Referrals: None,Stated [Primary Care Provider] - 1-2 days Time of Disposition: 19:56
[2024-12-01 17:45] LABS: Basophils # (A) 0.01 10*3/uL (0.00-0.10); Basophils % (A) 0.2 %; Eosinophils # (A) 0.24 10*3/uL (0.04-0.35); Eosinophils % (A) 4.1 %; HCT 37.4 % (39.6-50.0); HGB 13.1 g/dL (13.0-17.0); Lymphocytes # (A) 1.11 10*3/uL (0.90-5.00); Lymphocytes % (A) 19.2 %; MCH 29.7 pg (27.0-32.0); MCV 84.8 fL (80.0-97.0); Mean Platelet Volume 10.1 fL (9.5-12.2); Monocytes # (A) 0.34 10*3/uL (0.20-1.00); Monocytes % (A) 5.9 %; Neutrophils # (A) 4.03 10*3/uL (1.80-7.70); Neutrophils % (A) 69.6 %; Platelet Count 164 10*3/uL (140-440); RBC 4.41 10*6/uL (4.40-5.60); RDW 14.3 % (11.5-14.5); WBC 5.79 10*3/uL (4.50-10.00)
[2024-12-01] MEDS: SODIUM CHLORIDE 0.9% 1,000 ML IV STA (18:03)
[2024-12-01] MEDS: INSULIN REGULAR 100 UNIT/ML VIAL (IM/SQ) SQ ONE (18:03)
[2024-12-01 18:59] LABS: Appearance,Urine Clear (Clear); Bilirubin,Urine Negative (Negative); Blood,Urine Negative (Negative); Color,Urine Colorless; Glucose,Urine (UA) 4+ (Negative); Ketones,Urine Negative (Negative); Leukocyte Esterase,Urine Negative (Negative); Nitrite,Urine Negative (Negative); PH, Urine 6.5 (5.0-8.0); Protein,Urine Negative (Negative); Specific Gravity,Urine 1.016 (1.001-1.035); Urobilinogen,Urine <2.0 mg/dL (<2.0)
[2024-12-01 19:03] LABS: ALT 26 U/L (4-49); African American GFR (CKD) >90 (>60 ml/min/1.73 sqM); Anion Gap 3 mmol/L; Blood Urea Nitrogen 14 mg/dL (9-20); Calcium 8.3 mg/dL (8.4-10.2); Carbon Dioxide 25 mmol/L (22-30); Chloride 109 mmol/L (98-107); Glucose 220 mg/dL (74-99); Non-African American GFR(CKD) >90 (>60 ml/min/1.73 sqM); Sodium 137 mmol/L (137-145); Total Bilirubin 0.7 mg/dL (0.2-1.3)
[2024-12-01 19:14] LABS: AST 33 U/L (17-59); Potassium 4.8 mmol/L (3.5-5.1); Total Protein 5.1 g/dL (6.3-8.2)
[2024-12-01 19:15] LABS: Alkaline Phosphatase 60 U/L (38-126)
[2024-12-01] MEDS: ACETAMINOPHEN TAB 325 MG TAB PO STA (20:26)
[2024-12-01 20:29] VITALS: BP 124/79; PULSE 57; TEMP 98.4
== END 2024-12-01 20:55 | disposition home or self-care (01) ==
LOC: EC 16:56
DX: E11.65 Type 2 diabetes mellitus with hyperglycemia (principal); Z79.84 Long term (current) use of oral hypoglycemic drugs; F17.200 Nicotine dependence, unspecified, uncomplicated; Z88.0 Allergy status to penicillin; Z88.1 Allergy status to other antibiotic agents; Z88.2 Allergy status to sulfonamides; Z91.09 Other allergy status, other than to drugs and biological substances; Z91.040 Latex allergy status; Z88.8 Allergy status to other drugs, medicaments and biological substances
CPT/HCPCS: 36415; 80053; 81003; 82009; 85025; 93005; 96360; 99285

== ENCOUNTER 2024-12-02 13:12 | Emergency (ER) | payer MEDICARE, OTHER ==
[2024-12-02 13:23] VITALS: TEMP 98
--- NOTE | 2024-12-02 14:05 | XR ---
EXAMINATION TYPE: XR chest 2V DATE OF EXAM: 12/02/2024 1:58 PM COMPARISON: 11/29/2024 CLINICAL INDICATION: Male, 54 years old with history of chest pain, TECHNIQUE: XR chest 2V view(s) obtained. FINDINGS: The heart size is normal. The pulmonary vasculature is normal. The lungs are clear. IMPRESSION: 1. No acute pulmonary process. [facility], , 12/02/2024 2:02 PM
--- NOTE | 2024-12-02 14:19 | ED ---
General Adult HPI - General Chief complaint: Chest Pain Stated complaint: chest pain Time Seen by Provider: 12/02/24 13:34 Source: patient, RN notes reviewed, old records reviewed Mode of arrival: ambulatory Limitations: no limitations - History of Present Illness Initial comments: 54-year-old male presents for evaluation of chronic chest pain patient is a current smoker. He has had cardiac testing including stress test in. The last 6 months. He had a heart cath in 2018 which showed normal coronary arteries. Patient denies any variation in his symptoms. Stating this is chronic in nature. He has had laboratory testing done multiple occasions this month with always negative troponins. No fever. No cough. No abdominal pain. No vomiting. - Related Data Home Medications Medication Instructions Recorded Confirmed Insulin Lispro [humaLOG Kwikpen] See Protocol SQ AC-TID 08/23/24 10/13/24 Albuterol Nebulized [Ventolin 2.5 mg INHALATION RT-Q6H PRN 09/30/24 10/13/24 Nebulized] Capsaicin Cream [Trixaicin Cream] 1 applic TOPICAL TID PRN 09/30/24 10/13/24 Fluticasone Furoate [Flonase 1 spray EA NOSTRIL BID PRN 09/30/24 10/13/24 Sensimist] Insulin Glargine,Hum.rec.anlog 15 unit SQ HS 09/30/24 10/13/24 [Insulin Glargine Solostar] Nicotine Polacrilex [Nicorette] 2 mg BC DIRECTED PRN 09/30/24 10/13/24 Ondansetron [Zofran] 4 mg PO Q8HR PRN 09/30/24 10/13/24 traZODone HCL [Desyrel] 100 mg PO HS 09/30/24 10/13/24 Ammonium Lactate [Amlactin] 1 applic TOPICAL DAILY 10/13/24 10/13/24 Previous Rx's Medication Instructions Recorded Aspirin EC [Ecotrin Low Dose] 81 mg PO DAILY 30 Days #30 tab 07/13/24 Pantoprazole [Protonix] 40 mg PO DAILY 30 Days #30 tab 07/13/24 Budesonide/Formoterol Fumarate 2 puff INHALATION RT-BID 30 Days 08/15/24 [Symbicort 80-4.5 Mcg Inhaler] #1 each Atorvastatin [Lipitor] 10 mg PO HS 30 Days #30 tab 09/19/24 Dapagliflozin Propanediol [Farxiga] 10 mg PO DAILY 30 Days #30 tab 09/19/24 Sertraline [Zoloft] 100 mg PO DAILY 30 Days #30 tab 09/19/24 busPIRone HCl [Buspar] 5 mg PO BID 30 Days #60 tab 09/19/24 ARIPiprazole IM SYRINGE [Abilify 400 mg IM QMONTHLY #1 each 10/04/24 Maintena Syringe] ARIPiprazole [Abilify] 15 mg PO DAILY 13 Days #13 tab 10/04/24 Allergies Allergy/AdvReac Type Severity Reaction Status Date / Time dicyclomine HCl [From Bentyl] Allergy Unknown Dyspnea Verified 12/02/24 13:23 latex Allergy Unknown Rash/Hives Verified 12/02/24 13:23 Benzoate Analogues Allergy Unknown Verified 12/02/24 13:23 benzonatate Allergy Unknown Verified 12/02/24 13:23 nitrofurantoin Allergy Nausea Verified 12/02/24 13:23 [From Macrobid] Penicillins Allergy "[place] Verified 12/02/24 13:23 funny" adhesive AdvReac Unknown Itching Verified 12/02/24 13:23 ciprofloxacin AdvReac Unknown Nausea Verified 12/02/24 13:23 Macrolide Antibiotics AdvReac Unknown Nausea Verified 12/02/24 13:23 sulfamethoxazole AdvReac Unknown Unknown Verified 12/02/24 13:23 [From Bactrim] trimethoprim [From Bactrim] AdvReac Unknown Unknown Verified 12/02/24 13:23 diphenhydramine AdvReac Confusion Verified 12/02/24 13:23 [From Benadryl] Review of Systems ROS Statement: Those systems with pertinent positive or pertinent negative responses have been documented in the HPI. ROS Other: All systems not noted in ROS Statement are negative. Past Medical History Past Medical History: Asthma, Chest Pain / Angina, COPD, CVA/TIA, Diabetes Mellitus, GERD/Reflux, Hearing Disorder / Deafness, Hyperlipidemia, Hypertension, Liver Disease, Osteoarthritis (OA), Pneumonia, Seizure Disorder, Sleep Apnea/CPAP/BIPAP Additional Past Medical History / Comment(s): states CVA at 35 yrs old, no weakness @ this time. states seizure at 35 yrs old., DDD- back & neck pain., carpal tunnel syndrome. Has [facility] public guardian. History of Any Multi-Drug Resistant Organisms: None Reported, Other MDRO Past Surgical History: Heart Catheterization, Orthopedic Surgery Additional Past Surgical History / Comment(s): Cysts removed, left thumb surg idalmis, colonoscopy 08/24/2019. Skin tags removed from both eyes. Past Anesthesia/Blood Transfusion Reactions: Motion Sickness, Postoperative Nausea & Vomiting (PONV) Past Psychological History: Anxiety, Bipolar, Depression Smoking Status: Current every day smoker Past Alcohol Use History: Abuse Past Drug Use History: None Reported - Past Family History Brother(s) Family Medical History: Diabetes Mellitus Additional Family Medical History / Comment(s): Patient has 2 brothers. One from complications from diabetes. The second is alive with diabetes. Sister(s) Family Medical History: Cancer Additional Family Medical History / Comment(s): Patient has one sister with breast cancer. Patient does not have any children. Father Family Medical History: Cancer Additional Family Medical History / Comment(s): Father in his 40s or 50s from colon cancer. Mother Family Medical History: Cancer Additional Family Medical History / Comment(s): Mother at age 68 from lung cancer. General Exam Limitations: no limitations General appearance: in no apparent distress Head exam: Present: normocephalic Eye exam: Present: normal appearance, PERRL Neck exam: Present: normal inspection. Absent: tenderness, meningismus Respiratory exam: Present: normal lung sounds bilaterally, respiratory distress Cardiovascular Exam: Present: regular rate, normal rhythm GI/Abdominal exam: Present: soft. Absent: distended, tenderness Extremities exam: Present: normal inspection, normal capillary refill Neurological exam: Present: alert, oriented X3 Psychiatric exam: Present: normal affect, normal mood Skin exam: Present: warm, dry, intact Course Vital Signs 12/02/24 13:19 Temperature 98.0 F Pulse Rate 85 Respiratory 18 Rate Blood Pressure 146/83 O2 Sat by Pulse 99 Oximetry Medical Decision Making - Medical Decision Making Was pt. sent in by a medical professional or institution (, PA, PACKAGE CENTER SUPERVISOR, urgent care, hospital, or [facility]...) When possible be specific @ -No Did you speak to anyone other than the patient for history (EMS, parent, family, police, friend...)? What history was obtained from this source @ -No Did you review nursing and triage notes (agree or disagree)? Why? @ -I reviewed and agree with nursing and triage notes Were old charts reviewed (outside hosp., previous admission, EMS record, old EKG, old radiological studies, urgent care reports/EKG's, [facility] records)? Report findings @ -No old charts were reviewed Differential Chest Pain: Stable Angina, Unstable Angina, STEMI, NSTEMI Aortic Dissection, Pneumothorax, Musculoskeletal, Esophageal Spasm GERD, Cholecystitis, Pancreatitis, Zoster, this is not meant to be an all-inclusive list. EKG interpreted by me (3pts min.). @EKG sinus rhythm with PVC rate of 79 OK interval 149, QRS duration 101, QTc [address] segment elevation. X-rays interpreted by me (1pt min.). @ -Chest x-ray negative for acute cardiopulmonary disease CT interpreted by me (1pt min.). @ -None done U/S interpreted by me (1pt. min.). @ -None done What testing was considered but not performed or refused? (CT, X-rays, U/S, labs)? Why? @ -None What meds were considered but not given or refused? Why? @ -None Did you discuss the management of the patient with other professionals (professionals i.e. , PA, PACKAGE CENTER SUPERVISOR, lab, RT, psych nurse, transition social worker, agency sales director, teacher, traffic division commanding officer, case filler)? Give summary @ -No Was smoking cessation discussed for >3mins.? @ -No Was critical care preformed (if so, how long)? @ -No Were there social determinants of health that impacted care today? How? (Homelessness, low income, unemployed, alcoholism, drug addiction, transportation, low edu. Level, literacy, decrease access to med. care, intermediate, rehab)? @ -No Was there de-escalation of care discussed even if they declined (Discuss DNR or withdrawal of care, Hospice)? DNR status @ -No What co-morbidities impacted this encounter? (DM, HTN, Smoking, COPD, CAD, Cancer, CVA, ARF, Chemo, Hep., AIDS, mental health diagnosis, sleep apnea, morbid obesity)? @Chronic chest pain Was patient admitted / discharged? Hospital course, mention meds given and route, prescriptions, significant lab abnormalities, going to OR and other per tinent info. @ -54-year-old male presents with chronic chest pain unchanged from baseline. EKG sinus without ST segment elevation. Chest x-ray is clear. Patient is instructed to follow-up with his primary care provider. Undiagnosed new problem with uncertain prognosis? @ -No Drug Therapy requiring intensive monitoring for toxicity (Heparin, Nitro, Insulin, Cardizem)? @ -No Were any procedures done? @ -No Diagnosis/symptom? @Chronic chest pain Acute, or Chronic, or Acute on Chronic? @ -Chronic Uncomplicated (without systemic symptoms) or Complicated (systemic symptoms)? @ -Default Side effects of treatment? @ -No Exacerbation, Progression, or Severe Exacerbation? @ -No Poses a threat to life or bodily function? How? (Chest pain, [place], [place], pneumonia, PE, COPD, DKA, ARF, appy, cholecystitis, CVA, Diverticulitis, Homicidal, Suicidal, threat to staff... and all critical care pts) @ -Low risk at this time Disposition Clinical Impression: Chest pain syndrome Disposition: HOME SELF-CARE Condition: Fair Instructions (If sedation given, give patient instructions): Chest Pain (ED) Is patient prescribed a controlled substance at d/c from ED?: No Referrals: Ramya Saul MD [Primary Care Provider] - 1-2 days Mika Gonzalez MD [STAFF PHYSICIAN] - 1-2 days Time of Disposition: 14:25
[2024-12-02 15:25] VITALS: BP 130/68; PULSE 72; RESP 16
== END 2024-12-02 15:15 | disposition home or self-care (01) ==
LOC: EC 13:12 → SUPCPDRO 13:12 → EC 15:15
DX: G89.29 Other chronic pain (principal); R07.9 Chest pain, unspecified; F17.200 Nicotine dependence, unspecified, uncomplicated; Z88.1 Allergy status to other antibiotic agents; Z88.0 Allergy status to penicillin; Z88.2 Allergy status to sulfonamides; Z88.8 Allergy status to other drugs, medicaments and biological substances; Z91.040 Latex allergy status; Z86.73 Personal history of transient ischemic attack (TIA), and cerebral infarction without residual deficits
CPT/HCPCS: 71046; 93005; 99284

== ENCOUNTER 2024-12-04 14:19 | Emergency (ER) | payer MEDICARE, OTHER ==
--- NOTE | 2024-12-04 15:17 | ED ---
General Adult HPI - General Source: patient Mode of arrival: ambulatory Limitations: no limitations <Shawn Vizcarra - Last Filed: 12/04/24 15:50> - General Source: patient, RN notes reviewed, old records reviewed Mode of arrival: ambulatory Limitations: no limitations <Andrea Sheppard - Last Filed: 12/04/24 16:53> - General Chief complaint: Chest Pain Stated complaint: Chest pain Time Seen by Provider: 12/04/24 14:57 - History of Present Illness Initial comments: Dictation was produced using [employer] dictation software. please excuse any grammatical, word or spelling errors. Chief Complaint: 54-year-old male with chest pain History of Present Illness: Patient is 54-year-old male presents to the ER for chest pain states that he was sent by reaming machine operator for plastic Dr. Gonzalez come to the ER to be admitted for cardiac cath. Patient is well-known to the emergency department for multiple visitations for a myriad of complaints mostly chest pain. States that he had a cardiac catheterization 7 years ago. The ROS documented in this emergency department record has been reviewed and confirmed by me. Those systems with pertinent positive or negative responses have been documented in the HPI. All other systems are other negative and/or noncontributory. (Shawn Vizcarra) 54 male well-known to this ER coming in for chest pain today. (Andrea Sheppard) - Related Data Home Medications Medication Instructions Recorded Confirmed Insulin Lispro [humaLOG Kwikpen] See Protocol SQ AC-TID 08/23/24 10/13/24 Albuterol Nebulized [Ventolin 2.5 mg INHALATION RT-Q6H PRN 09/30/24 10/13/24 Nebulized] Capsaicin Cream [Trixaicin Cream] 1 applic TOPICAL TID PRN 09/30/24 10/13/24 Fluticasone Furoate [Flonase 1 spray EA NOSTRIL BID PRN 09/30/24 10/13/24 Sensimist] Insulin Glargine,Hum.rec.anlog 15 unit SQ HS 09/30/24 10/13/24 [Insulin Glargine Solostar] Nicotine Polacrilex [Nicorette] 2 mg BC DIRECTED PRN 09/30/24 10/13/24 Ondansetron [Zofran] 4 mg PO Q8HR PRN 09/30/24 10/13/24 traZODone HCL [Desyrel] 100 mg PO HS 09/30/24 10/13/24 Ammonium Lactate [Amlactin] 1 applic TOPICAL DAILY 10/13/24 10/13/24 Previous Rx's Medication Instructions Recorded Aspirin EC [Ecotrin Low Dose] 81 mg PO DAILY 30 Days #30 tab 07/13/24 Pantoprazole [Protonix] 40 mg PO DAILY 30 Days #30 tab 07/13/24 Budesonide/Formoterol Fumarate 2 puff INHALATION RT-BID 30 Days 08/15/24 [Symbicort 80-4.5 Mcg Inhaler] #1 each Atorvastatin [Lipitor] 10 mg PO HS 30 Days #30 tab 09/19/24 Dapagliflozin Propanediol [Farxiga] 10 mg PO DAILY 30 Days #30 tab 09/19/24 Sertraline [Zoloft] 100 mg PO DAILY 30 Days #30 tab 09/19/24 busPIRone HCl [Buspar] 5 mg PO BID 30 Days #60 tab 09/19/24 ARIPiprazole IM SYRINGE [Abilify 400 mg IM QMONTHLY #1 each 10/04/24 Maintena Syringe] ARIPiprazole [Abilify] 15 mg PO DAILY 13 Days #13 tab 10/04/24 Allergies Allergy/AdvReac Type Severity Reaction Status Date / Time dicyclomine HCl [From Bentyl] Allergy Unknown Dyspnea Verified 12/04/24 14:27 latex Allergy Unknown Rash/Hives Verified 12/04/24 14:27 Benzoate Analogues Allergy Unknown Verified 12/04/24 14:27 benzonatate Allergy Unknown Verified 12/04/24 14:27 nitrofurantoin Allergy Nausea Verified 12/04/24 14:27 [From Macrobid] Penicillins Allergy "[place] Verified 12/04/24 14:27 funny" adhesive AdvReac Unknown Itching Verified 12/04/24 14:27 ciprofloxacin AdvReac Unknown Nausea Verified 12/04/24 14:27 Macrolide Antibiotics AdvReac Unknown Nausea Verified 12/04/24 14:27 sulfamethoxazole AdvReac Unknown Unknown Verified 12/04/24 14:27 [From Bactrim] trimethoprim [From Bactrim] AdvReac Unknown Unknown Verified 12/04/24 14:27 diphenhydramine AdvReac Confusion Verified 12/04/24 14:27 [From Benadryl] Review of Systems ROS Other: All systems not noted in ROS Statement are negative. <Shawn Vizcarra - Last Filed: 12/04/24 15:50> ROS Other: All systems not noted in ROS Statement are negative. <Andrea Sheppard - Last Filed: 12/04/24 16:53> ROS Statement: Those systems with pertinent positive or pertinent negative responses have been documented in the HPI. Past Medical History Past Medical History: Asthma, Chest Pain / Angina, COPD, CVA/TIA, Diabetes Mellitus, GERD/Reflux, Hearing Disorder / Deafness, Hyperlipidemia, Hypertension, Liver Disease, Osteoarthritis (OA), Pneumonia, Seizure Disorder, Sleep Apnea/CPAP/BIPAP Additional Past Medical History / Comment(s): states CVA at 35 yrs old, no weakness @ this time. states seizure at 35 yrs old., DDD- back & neck pain., carpal tunnel syndrome. Has [employer] public guardian. History of Any Multi-Drug Resistant Organisms: None Reported, Other MDRO Past Surgical History: Heart Catheterization, Orthopedic Surgery Additional Past Surgical History / Comment(s): Cysts removed, left thumb surgery, colonoscopy 08/24/2019. Skin tags removed from both eyes. Past Anesthesia/Blood Transfusion Reactions: Motion Sickness, Postoperative Nausea & Vomiting (PONV) Past Psychological History: Anxiety, Bipolar, Depression Smoking Status: Current every day smoker Past Alcohol Use History: Abuse Past Drug Use History: None Reported - Past Family History Brother(s) Family Medical History: Diabetes Mellitus Additional Family Medical History / Comment(s): Patient has 2 brothers. One from complications from diabetes. The second is alive with diabetes. Sister(s) Family Medical History: Cancer Additional Family Medical History / Comment(s): Patient has one sister with breast cancer. Patient does not have any children. Father Family Medical History: Cancer Additional Family Medical History / Comment(s): Father in his 40s or 50s from colon cancer. Mother Family Medical History: Cancer Additional Family Medical History / Comment(s): Mother at age 68 from lung cancer. <Shawn Vizcarra - Last Filed: 12/04/24 15:50> General Exam Limitations: no limitations <Shawn Vizcarra - Last Filed: 12/04/24 15:50> General appearance: alert, in no apparent distress Head exam: Present: atraumatic, normocephalic, normal inspection Eye exam: Present: normal appearance, PERRL, EOMI. Absent: scleral icterus, conjunctival injection, periorbital swelling ENT exam: Present: normal exam, mucous membranes moist Neck exam: Present: normal inspection. Absent: tenderness, meningismus, lymphadenopathy Respiratory exam: Present: normal lung sounds bilaterally. Absent: respiratory distress, wheezes, rales, rhonchi, stridor Cardiovascular Exam: Present: regular rate, normal rhythm, normal heart sounds. Absent: systolic murmur, diastolic murmur, rubs, gallop, clicks GI/Abdominal exam: Present: soft, normal bowel sounds. Absent: distended, tenderness, guarding, rebound, rigid Extremities exam: Present: normal inspection, full ROM, normal capillary refill. Absent: tenderness, pedal edema, joint swelling, calf tenderness Back exam: Present: normal inspection Neurological exam: Present: alert, oriented X3, CN II-XII intact Psychiatric exam: Present: normal affect, normal mood Skin exam: Present: warm, dry, intact, normal color. Absent: rash <Andrea Sheppard - Last Filed: 12/04/24 16:53> - General Exam Comments Initial Comments: PHYSICAL EXAM: General Impression: Alert and oriented x3, not in acute distress HEENT: Normocephalic atraumatic, extra-ocular movements intact, pupils equal and reactive to light bilaterally, mucous membranes moist. Cardiovascular: Heart regular rate and rhythm Chest: Able to complete full sentences, no retractions, no tachypnea Abdomen: abdomen soft, non-tender, non-distended, no organomegaly Musculoskeletal: Pulses present and equal in all extremities, no peripheral edema Motor: no focal deficits noted Neurological: CN II-XII grossly intact, no focal motor or sensory deficits noted Skin: Intact with no visualized rashes Psych: Normal affect and mood (Shawn Vizcarra) Course <Shawn Vizcarra - Last Filed: 12/04/24 15:50> <Andrea Sheppard - Last Filed: 12/04/24 16:53> Vital Signs 06/09/25 14:23 Temperature 97.3 F L Pulse Rate 88 Respiratory 17 Rate Blood Pressure 125/83 O2 Sat by Pulse 96 Oximetry - Reevaluation(s) Reevaluation #1: 12/04/24 15:[address] Goel who did in fact see the patient in his office today. He did refer the patient to the ER to have cardiac workup. Dr. Goel did not feel that patient met automatic criteria for cardiac cath at this time. Dr. Gonzalez requested that patient just have some blood work and be discharged should he have normal workup. (Shawn Vizcarra) 12/04/24 16:52 Medical records reviewed (Andrea Sheppard) Reevaluation #2: 12/04/24 16:52 Patient symptoms relatively unchanged, no new complaints (Andrea Sheppard) Reevaluation #3: 12/04/24 16:52 Patient informed of results questions answered (Andrea Sheppard) EKG Findings - EKG Comments: EKG Findings:: My EKG interpretation: Ventricular rate 60, sinus rhythm, MO 141, QRS 104, QTc 417. No MO prolongation, no QTC prolongation, no ST or T-wave benedict es noted. Overall, this EKG is unremarkable <Shawn Vizcarra - Last Filed: 12/04/24 15:50> Medical Decision Making - Lab Data Result diagrams: 12/04/24 15:30 <Shawn Vizcarra - Last Filed: 12/04/24 15:50> - Lab Data Result diagrams: 12/04/24 15:30 12/04/24 15:30 - EKG Data -: EKG Interpreted by Me <Andrea Sheppard - Last Filed: 12/04/24 16:53> - Medical Decision Making Was pt. sent in by a medical professional or institution (, PA, SHOVEL OPERATOR, urgent care, hospital, or care home...) When possible be specific @ -No Did you speak to anyone other than the patient for history (EMS, parent, family, police, friend...)? What history was obtained from this source @ -No Did you review nursing and triage notes (agree or disagree)? Why? @ -I reviewed and agree with nursing and triage notes Were old charts reviewed (outside hosp., previous admission, EMS record, old EKG, old radiological studies, urgent care reports/EKG's, care home records)? Report findings @ -No old charts were reviewed Differential Diagnosis (chest pain, altered mental status, abdominal pain women, abdominal pain men, vaginal bleeding, musculoskeletal, weakness, fever, dyspnea, syncope, headache, dizziness, GI bleed, back pain, seizure, CVA, palpatations, mental health)? @ -Differential Chest Pain: Stable Angina, Unstable Angina, STEMI, NSTEMI Aortic Dissection, Pneumothorax, Musculoskeletal, Esophageal Spasm GERD, Cholecystitis, Pancreatitis, Zoster, this is not meant to be an all-inclusive list. EKG interpreted by me (3pts min.). @ -See above X-rays interpreted by me (1pt min.). @ -None done CT interpreted by me (1pt min.). @ -None done U/S interpreted by me (1pt. min.). @ -None done What testing was considered but not performed or refused? (CT, X-rays, U/S, labs)? Why? @ -None What meds were considered but not given or refused? Why? @ -None Was smoking cessation discussed for >3mins.? @ -No Were there social determinants of health that impacted care today? How? (Homelessness, low income, unemployed, alcoholism, drug addiction, transportation, low edu. Level, literacy, decrease access to med. care, senior living, rehab)? @ -No Was there de-escalation of care discussed even if they declined (Discuss DNR or withdrawal of care, Hospice)? DNR status @ -No What co-morbidities impacted this encounter? (DM, HTN, Smoking, COPD, CAD, C ancer, CVA, ARF, Chemo, Hep., AIDS, mental health diagnosis, sleep apnea, morbid obesity)? @ -None Was patient admitted / discharged? Hospital course, mention meds given and route, prescriptions, significant lab abnormalities, going to OR and other pertinent info. @ -54-year-old male sent in from cardiology office for chest pain. Patient well-known to the emergency department for multiple visitations for chest pain. Patient had a completely normal cath 7 years ago. Patient has troponin levels dating back to 2013. He has never had a positive level. This peak with cardiology who requested cardiac workup. EKG is unremarkable. Patient well- appearing. Did you discuss the management of the patient with other professionals (professionals i.e. , PA, SHOVEL OPERATOR, lab, RT, psych nurse, geriatric social work professor, monument erector, teacher, workplace rehabilitation officer, case worker)? Give summary @ -No Was critical care preformed (if so, how long)? @ -No Undiagnosed new problem with uncertain prognosis? @ -No Drug Therapy requiring intensive monitoring for toxicity (Heparin, Nitro, Insulin, Cardizem)? @ -No Were any procedures done? @ -No Diagnosis/symptom? Acute, or Chronic, or Acute on Chronic? Uncomplicated (without systemic symptoms) or Complicated (systemic symptoms)? @ -Chest pain Side effects of treatment? @ -No Exacerbation, Progression, or Severe Exacerbation? @ -No Poses a threat to life or bodily function? How? (Chest pain, USA, MD, pneumonia, PE, COPD, DKA, ARF, appy, cholecystitis, CVA, Diverticulitis, Homicidal, Suicidal, threat to staff... and all critical care pts) @ -No (Shawn Vizcarra) 54 male to the ER for evaluation of chest pain, no acute cause of chest pain found here in the ER normal EKG, normal troponin, normal heart catheterization at 6 years. Patient can be discharged home (Andrea hSeppard) - Lab Data Lab Results 12/04/24 12/04/24 12/04/24 Range/Units 15:30 15:30 15:30 WBC 6.71 (4.50-10.00) 10*3/uL RBC 4.98 (4.40-5.60) 10*6/uL Hgb 14.9 (13.0-17.0) g/dL Hct 42.0 (39.6-50.0) % MCV 84.3 (80.0-97.0) fL MCH 29.9 (27.0-32.0) pg MCHC 35.5 (32.0-37.0) g/dL Plt Count 176 (140-440) 10*3/uL MPV 9.4 L (9.5-12.2) fL Immature Gran % (Auto) 0.6 % Neutrophils % 73.1 % Lymphocytes % 16.1 % Monocytes % 6.4 % Eosinophils % 3.7 % Basophils % 0.1 % Immature Gran # 0.04 (0.00-0.04) 10*3/uL Neutrophils # 4.90 (1.80-7.70) 10*3/uL Lymphocytes # 1.08 (0.90-5.00) 10*3/uL Monocytes # 0.43 (0.20-1.00) 10*3/uL Eosinophils # 0.25 (0.04-0.35) 10*3/uL Basophils # 0.01 (0.00-0.10) 10*3/uL Sodium 139 (137-145) mmol/L Potassium 4.0 (3.5-5.1) mmol/L Chloride 109 H (98-107) mmol/L Carbon Dioxide 23 (22-30) mmol/L Anion Gap 7 mmol/L BUN 13 (9-20) mg/dL Creatinine 0.71 (0.66-1.25) mg/dL Est GFR (CKD-EPI)AfAm >90 (>60 ml/min/1.73 sqM) Est GFR (CKD-EPI)NonAf >90 (>60 ml/min/1.73 sqM) Glucose 248 H (74-99) mg/dL Calcium 9.5 (8.4-10.2) mg/dL Troponin I <0.012 (0.000-0.034) ng/mL Disposition Is patient prescribed a controlled substance at d/c from ED?: No Time of Disposition: 15:43 <Shawn Vizcarra - Last Filed: 12/04/24 15:50> Is patient prescribed a controlled substance at d/c from ED?: No <Andrea Sheppard - Last Filed: 12/04/24 16:53> Clinical Impression: Chest pain, Chest pain syndrome Disposition: HOME SELF-CARE Condition: Good Instructions (If sedation given, give patient instructions): Chest Pain (ED) Referrals: Mika Gonzalez MD [STAFF PHYSICIAN] - 1-2 days
[2024-12-04 15:37] LABS: Basophils # (A) 0.01 10*3/uL (0.00-0.10); Basophils % (A) 0.1 %; Eosinophils # (A) 0.25 10*3/uL (0.04-0.35); Eosinophils % (A) 3.7 %; HGB 14.9 g/dL (13.0-17.0); Lymphocytes # (A) 1.08 10*3/uL (0.90-5.00); Lymphocytes % (A) 16.1 %; MCH 29.9 pg (27.0-32.0); MCHC 35.5 g/dL (32.0-37.0); MCV 84.3 fL (80.0-97.0); Mean Platelet Volume 9.4 fL (9.5-12.2); Monocytes # (A) 0.43 10*3/uL (0.20-1.00); Monocytes % (A) 6.4 %; Neutrophils % (A) 73.1 %; Platelet Count 176 10*3/uL (140-440); RBC 4.98 10*6/uL (4.40-5.60); RDW 14.4 % (11.5-14.5); WBC 6.71 10*3/uL (4.50-10.00)
[2024-12-04 15:50] LABS: African American GFR (CKD) >90 (>60 ml/min/1.73 sqM); Anion Gap 7 mmol/L; Blood Urea Nitrogen 13 mg/dL (9-20); Calcium 9.5 mg/dL (8.4-10.2); Carbon Dioxide 23 mmol/L (22-30); Chloride 109 mmol/L (98-107); Glucose 248 mg/dL (74-99); Non-African American GFR(CKD) >90 (>60 ml/min/1.73 sqM); Sodium 139 mmol/L (137-145)
[2024-12-04 17:04] VITALS: BP 130/82; PULSE 86; RESP 18; TEMP 97.9
== END 2024-12-04 17:02 | disposition home or self-care (01) ==
LOC: EC 14:19
DX: R07.9 Chest pain, unspecified (principal); F17.200 Nicotine dependence, unspecified, uncomplicated; Z86.73 Personal history of transient ischemic attack (TIA), and cerebral infarction without residual deficits; Z88.8 Allergy status to other drugs, medicaments and biological substances; Z88.2 Allergy status to sulfonamides; Z88.1 Allergy status to other antibiotic agents; Z88.0 Allergy status to penicillin; Z91.040 Latex allergy status
CPT/HCPCS: 36415; 80048; 84484; 85025; 93005; 99285

== ENCOUNTER 2024-12-10 12:40 | Emergency (ER) | payer MEDICARE, OTHER ==
[2024-12-10 12:48] LABS: Glucose,Whole Blood 335 mg/dL (70-110)
--- NOTE | 2024-12-10 13:25 | ED ---
General Adult HPI - General Chief complaint: Dizziness Stated complaint: Dizziness, light headednes Time Seen by Provider: 12/10/24 13:01 Source: patient, EMS, RN notes reviewed, old records reviewed Mode of arrival: EMS - History of Present Illness Initial comments: Patient is a 54-year-old male who presents emergency department complaining of lightheadedness. Has noticed that his sugars been elevated today. Is a frequent visitor to our emergency department. Was originally seen at urgent care and sent here due to concern for elevated blood sugars. Patient has a past medical history remarkable for asthma, COPD, angina, diabetes, GERD, hypertension, hyperlipidemia. Presents for further evaluation at this time. Does endorse some mild wheezing in his specimen on steroids for his emphysema/asthma. States he was unable to fill them for the weekend. Presents for further evaluation at this time. Endorses mild cough. Denies any abdominal pain. Endorses mild nausea. Denies any diarrhea. Denies any known sick contacts. Denies any fevers or chills. - Related Data Home Medications Medication Instructions Recorded Confirmed Insulin Lispro [humaLOG Kwikpen] See Protocol SQ AC-TID 08/23/24 10/13/24 Albuterol Nebulized [Ventolin 2.5 mg INHALATION RT-Q6H PRN 09/30/24 10/13/24 Nebulized] Capsaicin Cream [Trixaicin Cream] 1 applic TOPICAL TID PRN 09/30/24 10/13/24 Fluticasone Furoate [Flonase 1 spray EA NOSTRIL BID PRN 09/30/24 10/13/24 Sensimist] Insulin Glargine,Hum.rec.anlog 15 unit SQ HS 09/30/24 10/13/24 [Insulin Glargine Solostar] Nicotine Polacrilex [Nicorette] 2 mg BC DIRECTED PRN 09/30/24 10/13/24 Ondansetron [Zofran] 4 mg PO Q8HR PRN 09/30/24 10/13/24 traZODone HCL [Desyrel] 100 mg PO HS 09/30/24 10/13/24 Ammonium Lactate [Amlactin] 1 applic TOPICAL DAILY 10/13/24 10/13/24 Previous Rx's Medication Instructions Recorded Aspirin EC [Ecotrin Low Dose] 81 mg PO DAILY 30 Days #30 tab 07/13/24 Pantoprazole [Protonix] 40 mg PO DAILY 30 Days #30 tab 07/13/24 Budesonide/Formoterol Fumarate 2 puff INHALATION RT-BID 30 Days 08/15/24 [Symbicort 80-4.5 Mcg Inhaler] #1 each Atorvastatin [Lipitor] 10 mg PO HS 30 Days #30 tab 09/19/24 Dapagliflozin Propanediol [Farxiga] 10 mg PO DAILY 30 Days #30 tab 09/19/24 Sertraline [Zoloft] 100 mg PO DAILY 30 Days #30 tab 09/19/24 busPIRone HCl [Buspar] 5 mg PO BID 30 Days #60 tab 09/19/24 ARIPiprazole IM SYRINGE [Abilify 400 mg IM QMONTHLY #1 each 10/04/24 Maintena Syringe] ARIPiprazole [Abilify] 15 mg PO DAILY 13 Days #13 tab 10/04/24 Allergies Allergy/AdvReac Type Severity Reaction Status Date / Time dicyclomine HCl [From Bentyl] Allergy Unknown Dyspnea Verified 12/10/24 12:52 latex Allergy Unknown Rash/Hives Verified 12/10/24 12:52 Benzoate Analogues Allergy Unknown Verified 12/10/24 12:52 benzonatate Allergy Unknown Verified 12/10/24 12:52 nitrofurantoin Allergy Nausea Verified 12/10/24 12:52 [From Macrobid] Penicillins Allergy "Kittrell Verified 12/10/24 12:52 funny" adhesive AdvReac Unknown Itching Verified 12/10/24 12:52 ciprofloxacin AdvReac Unknown Nausea Verified 12/10/24 12:52 Macrolide Antibiotics AdvReac Unknown Nausea Verified 12/10/24 12:52 sulfamethoxazole AdvReac Unknown Unknown Verified 12/10/24 12:52 [From Bactrim] trimethoprim [From Bactrim] AdvReac Unknown Unknown Verified 12/10/24 12:52 diphenhydramine AdvReac Confusion Verified 12/10/24 12:52 [From Benadryl] Review of Systems ROS Statement: Those systems with pertinent positive or pertinent negative responses have been documented in the HPI. Review of Systems: CONST: Denies fever EYES: Denies blurry vision ENT: Endorses nasal congestion C/V: Denies Chest pain RESP: Denies shortness of breath GI: Denies abdominal pain : Denies dysuria SKIN: Denies rash. MSK: Denies joint pain. NEURO: Denies headache ROS Other: All systems not noted in ROS Statement are negative. Past Medical History Past Medical History: Asthma, Chest Pain / Angina, COPD, CVA/TIA, Diabetes Mellitus, GERD/Reflux, Hearing Disorder / Deafness, Hyperlipidemia, Hypertension, Liver Disease, Osteoarthritis (OA), Pneumonia, Seizure Disorder, Sleep Apnea/CPAP/BIPAP Additional Past Medical History / Comment(s): states CVA at 35 yrs old, no weakness @ this time. states seizure at 35 yrs old., DDD- back & neck pain., carpal tunnel syndrome. Has [employer] public guardian. History of Any Multi-Drug Resistant Organisms: None Reported, Other MDRO Past Surgical History: Heart Catheterization, Orthopedic Surgery Additional Past Surgical History / Comment(s): Cysts removed, left thumb surgery , colonoscopy 08/24/2019. Skin tags removed from both eyes. Past Anesthesia/Blood Transfusion Reactions: Motion Sickness, Postoperative Nausea & Vomiting (PONV) Past Psychological History: Anxiety, Bipolar, Depression Smoking Status: Current every day smoker Past Alcohol Use History: Abuse Past Drug Use History: None Reported - Past Family History Brother(s) Family Medical History: Diabetes Mellitus Additional Family Medical History / Comment(s): Patient has 2 brothers. One from complications from diabetes. The second is alive with diabetes. Sister(s) Family Medical History: Cancer Additional Family Medical History / Comment(s): Patient has one sister with breast cancer. Patient does not have any children. Father Family Medical History: Cancer Additional Family Medical History / Comment(s): Father in his 40s or 50s from colon cancer. Mother Family Medical History: Cancer Additional Family Medical History / Comment(s): Mother at age 68 from lung cancer. General Exam - General Exam Comments Initial Comments: General: Appears in no acute distress. HEAD: Normal with no signs of head trauma. EYES: EOMI ENT: Hearing grossly intact, normal oropharynx. Mildly dry mucous membranes. RESPIRATORY: Clear breath sounds bilaterally. No wheezes, rales, or rhonchi. No hypoxia. No respiratory distress. C/V: Regular rate and rhythm. S1 and S2 auscultated, no edema, peripheral pulses 2+ and intact throughout ABD: Abd is soft, nontender, nondistended EXT: No obvious deformity SKIN: No rashes or lesions observed on exposed skin. NEURO: Alert and oriented x 4. Cranial nerves II-XII intact. No focal sensory or strength deficits. Course Vital Signs 12/10/24 12/10/24 12/10/24 12:46 13:49 14:18 Temperature 97.9 F Pulse Rate 69 58 L 63 Respiratory 19 18 19 Rate Blood Pressure 133/85 127/77 152/78 O2 Sat by Pulse 97 97 98 Oximetry 12/10/24 12/10/24 14:38 14:52 Temperature Pulse Rate 68 63 Respiratory Rate Blood Pressure O2 Sat by Pulse Oximetry Medical Decision Making - Medical Decision Making Was pt. sent in by a medical professional or institution (, PA, GLASS CARRIER, urgent care, hospital, or long term...) When possible be specific @ -No Did you speak to anyone other than the patient for history (EMS, parent, family, police, friend...)? What history was obtained from this source @ -No Did you review nursing and triage notes (agree or disagree)? Why? @ -I reviewed and agree with nursing and triage notes Were old charts reviewed (outside hosp., previous admission, EMS record, old EKG, old radiological studies, urgent care reports/EKG's, long term records)? Report findings @ -Old charts reviewed including comparing today's EKG with EKG from December 04, 2024 with no significant acute change. Differential Diagnosis (chest pain, altered mental status, abdominal pain women, abdominal pain men, vaginal bleeding, weakness, fever, dyspnea, syncope, headache, dizziness, GI bleed, back pain, seizure, CVA, palpatations, mental health, musculoskeletal)? @ -Dehydration, hyperglycemia, DKA. This list is not all inclusive. EKG interpreted by me (3pts min.). @ -As above X-rays interpreted by me (1pt min.). @ -Chest x-ray unremarkable for any obvious acute cardiopulmonary process. CT interpreted by me (1pt min.). @ -None done U/S interpreted by me (1pt. min.). @ -None done What testing was considered but not performed or refused? (CT, X-rays, U/S, labs)? Why? @ -None What meds were considered but not given or refused? Why? @ -None Did you discuss the management of the patient with other professionals (professionals i.e. , PA, GLASS CARRIER, lab, RT, psych nurse, family welfare social work professor, compo conveyor operator, teacher, general service officer, cyanide case hardener)? Give summary @ -No Was smoking cessation discussed for >3mins.? @ -No Was critical care preformed (if so, how long)? @ -No Were there social determinants of health that impacted care today? How? (Homelessness, low income, unemployed, alcoholism, drug addiction, transportation, low edu. Level, literacy, decrease access to med. care, [facility], rehab)? @ -No Was there de-escalation of care discussed even if they declined (Discuss DNR or withdrawal of care, Hospice)? DNR status @ -No What co-morbidities impacted this encounter? (DM, HTN, Smoking, COPD, CAD, Cancer, CVA, ARF, Chemo, Hep., AIDS, mental health diagnosis, sleep apnea, morbid obesity)? @ -Insulin-dependent diabetes Was patient admitted / discharged? Hospital course, mention meds given and route, prescriptions, significant lab abnormalities, going to OR and other pertinent info. @ -Presents for lightheadedness and hyperglycemia. Sent from urgent care. Will evaluate for possible DKA and dehydration. Patient given multiple fluid boluses, IV Zofran, Protonix. He was in agreement this plan. EKG shows no signs of acute ischemia. Vital signs within acceptable limits.Chest x-ray unremarkable for any obvious acute process. Laboratory studies remarkable for slightly elevated lactic acid of 2.2. Hyperglycemia 338. No evidence of DKA. Viral swabs negative. After 2 L fluids, hyperglycemia did improve to 290. On reevaluation, I discussed workup with the patient. He is feeling improved. He will be discharged home at this time. Recommended continued use of his insulin at home. He was in agreement this plan. He does not require any medication refills. I instructed the patient to follow up with their PCP in the next 1-3 days. I explained that the patient should return to the emergency department if they experience any worsening symptoms. Strict return precautions were discussed with the patient. The patient expressed understanding of these instructions. I answered all questions that the patient had. The patient was discharged home in good condition with their prescriptions and follow up information. Undiagnosed new problem with uncertain prognosis? @ -No Drug Therapy requiring intensive monitoring for toxicity (Heparin, Nitro, Insulin, Cardizem)? @ -No Were any procedures done? @ -No Diagnosis/symptom? @ -Hyperglycemia, lightheadedness Acute, or Chronic, or Acute on Chronic? @ -Acute Uncomplicated (without systemic symptoms) or Complicated (systemic symptoms)? @ -Uncomplicated Side effects of treatment? @ -None Exacerbation, Progression, or Severe Exacerbation] @ -No Poses a threat to life or bodily function? @ -Unlikely at this time - Lab Data Result diagrams: 12/10/24 13:19 12/10/24 13:19 Lab Results 12/10/24 12/10/24 12/10/24 Range/Units 12:47 13:19 13:19 WBC 5.59 (4.50-10.00) 10*3/uL RBC 4.60 (4.40-5.60) 10*6/uL Hgb 13.7 (13.0-17.0) g/dL Hct 39.6 (39.6-50.0) % MCV 86.1 (80.0-97.0) fL MCH 29.8 (27.0-32.0) pg MCHC 34.6 (32.0-37.0) g/dL Plt Count 176 (140-440) 10*3/uL MPV 9.9 (9.5-12.2) fL Immature Gran % (Auto) 1.4 % Neutrophils % 59.6 % Lymphocytes % 25.4 % Monocytes % 8.9 % Eosinophils % 4.5 % Basophils % 0.2 % Immature Gran # 0.08 H (0.00-0.04) 10*3/uL Neutrophils # 3.33 (1.80-7.70) 10*3/uL Lymphocytes # 1.42 (0.90-5.00) 10*3/uL Monocytes # 0.50 (0.20-1.00) 10*3/uL Eosinophils # 0.25 (0.04-0.35) 10*3/uL Basophils # 0.01 (0.00-0.10) 10*3/uL PT 10.2 (10.0-12.5) sec INR 0.9 (<1.2) APTT 22.1 (22.0-30.0) sec VBG pH (7.31-7.41) VBG pCO2 (37-51) mmHg VBG HCO3 (24-28) mmol/L Sodium (137-145) mmol/L Potassium (3.5-5.1) mmol/L Chloride (98-107) mmol/L Carbon Dioxide (22-30) mmol/L Anion Gap mmol/L BUN (9-20) mg/dL Creatinine (0.66-1.25) mg/dL Est GFR (CKD-EPI)AfAm (>60 ml/min/1.73 sqM) Est GFR (CKD-EPI)NonAf (>60 ml/min/1.73 sqM) Glucose (74-99) mg/dL POC Glucose (mg/dL) 335 H (70-110) mg/dL POC Glu Siebel Solution Architect ID Oenyda Corral Plasma Lactic Acid Hunter (0.7-2.0) mmol/L Calcium (8.4-10.2) mg/dL Total Bilirubin (0.2-1.3) mg/dL AST (17-59) U/L ALT (4-49) U/L Alkaline Phosphatase (38-126) U/L Total Protein (6.3-8.2) g/dL Albumin (3.5-5.0) g/dL Amylase (30-110) U/L Lipase (23-300) U/L Urine Color Urine Appearance (Clear) Urine pH (5.0-8.0) Ur Specific [place] (1.001-1.035) Urine Protein (Negative) Urine Glucose (UA) (Negative) Urine Ketones (Negative) Urine Blood (Negative) Urine Nitrite (Negative) Urine Bilirubin (Negative) Urine Urobilinogen (<2.0) mg/dL Ur Leukocyte Esterase (Negative) Serum Alcohol mg/dL Acetone, Qual (Negative) Influenza Type A (PCR) (Not Detectd) Influenza Type B (PCR) (Not Detectd) RSV (PCR) (Not Detectd) SARS-CoV-2 (PCR) (Not Detectd) 12/10/24 12/10/24 12/10/24 Range/Units 13:19 13:19 13:21 WBC (4.50-10.00) 10*3/uL RBC (4.40-5.60) 10*6/uL Hgb (13.0-17.0) g/dL Hct (39.6-50.0) % MCV (80.0-97.0) fL MCH (27.0-32.0) pg MCHC (32.0-37.0) g/dL Plt Count (140-440) 10*3/uL MPV (9.5-12.2) fL Immature Gran % (Auto) % Neutrophils % % Lymphocytes % % Monocytes % % Eosinophils % % Basophils % % Immature Gran # (0.00-0.04) 10*3/uL Neutrophils # (1.80-7.70) 10*3/uL Lymphocytes # (0.90-5.00) 10*3/uL Monocytes # (0.20-1.00) 10*3/uL Eosinophils # (0.04-0.35) 10*3/uL Basophils # (0.00-0.10) 10*3/uL PT (10.0-12.5) sec INR (<1.2) APTT (22.0-30.0) sec VBG pH (7.31-7.41) VBG pCO2 (37-51) mmHg VBG HCO3 (24-28) mmol/L Sodium 138 (137-145) mmol/L Potassium 3.8 (3.5-5.1) mmol/L Chloride 110 H (98-107) mmol/L Carbon Dioxide 21 L (22-30) mmol/L Anion Gap 7 mmol/L BUN 16 (9-20) mg/dL Creatinine 0.61 L (0.66-1.25) mg/dL Est GFR (CKD-EPI)AfAm >90 (>60 ml/min/1.73 sqM) Est GFR (CKD-EPI)NonAf >90 (>60 ml/min/1.73 sqM) Glucose 338 H (74-99) mg/dL POC Glucose (mg/dL) (70-110) mg/dL POC Glu Siebel Solution Architect ID Plasma Lactic Acid [place] 2.2 H* (0.7-2.0) mmol/L Calcium 8.3 L (8.4-10.2) mg/dL Total Bilirubin 0.4 (0.2-1.3) mg/dL AST 20 (17-59) U/L ALT 21 (4-49) U/L Alkaline Phosphatase 89 (38-126) U/L Total Protein 5.3 L (6.3-8.2) g/dL Albumin 3.4 L (3.5-5.0) g/dL Amylase 40 (30-110) U/L Lipase 116 (23-300) U/L Urine Color Urine Appearance (Clear) Urine pH (5.0-8.0) Ur Specific [place] (1.001-1.035) Urine Protein (Negative) Urine Glucose (UA) (Negative) Urine Ketones (Negative) Urine Blood (Negative) Urine Nitrite (Negative) Urine Bilirubin (Negative) Urine Urobilinogen (<2.0) mg/dL Ur Leukocyte Esterase (Negative) Serum Alcohol <10 mg/dL Acetone, Qual Negative (Negative) Influenza Type A (PCR) Not Detected (Not Detectd) Influenza Type B (PCR) Not Detected (Not Detectd) RSV (PCR) Not Detected (Not Detectd) SARS-CoV-2 (PCR) Not Detected (Not Detectd) 12/10/24 12/10/24 12/10/24 Range/Units 13:50 14:19 15:10 WBC (4.50-10.00) 10*3/uL RBC (4.40-5.60) 10*6/uL Hgb (13.0-17.0) g/dL Hct (39.6-50.0) % MCV (80.0-97.0) fL MCH (27.0-32.0) pg MCHC (32.0-37.0) g/dL Plt Count (140-440) 10*3/uL MPV (9.5-12.2) fL Immature Gran % (Auto) % Neutrophils % % Lymphocytes % % Monocytes % % Eosinophils % % Basophils % % Immature Gran # (0.00-0.04) 10*3/uL Neutrophils # (1.80-7.70) 10*3/uL Lymphocytes # (0.90-5.00) 10*3/uL Monocytes # (0.20-1.00) 10*3/uL Eosinophils # (0.04-0.35) 10*3/uL Basophils # (0.00-0.10) 10*3/uL PT (10.0-12.5) sec INR (<1.2) APTT (22.0-30.0) sec VBG pH 7.39 (7.31-7.41) VBG pCO2 38 (37-51) mmHg VBG HCO3 23 L (24-28) mmol/L Sodium (137-145) mmol/L Potassium (3.5-5.1) mmol/L Chloride (98-107) mmol/L Carbon Dioxide (22-30) mmol/L Anion Gap mmol/L BUN (9-20) mg/dL Creatinine (0.66-1.25) mg/dL Est GFR (CKD-EPI)AfAm (>60 ml/min/1.73 sqM) Est GFR (CKD-EPI)NonAf (>60 ml/min/1.73 sqM) Glucose (74-99) mg/dL POC Glucose (mg/dL) 290 H (70-110) mg/dL POC Glu Siebel Solution Architect ID [facility] Plasma Lactic Acid [place] (0.7-2.0) mmol/L Calcium (8.4-10.2) mg/dL Total Bilirubin (0.2-1.3) mg/dL AST (17-59) U/L ALT (4-49) U/L Alkaline Phosphatase (38-126) U/L Total Protein (6.3-8.2) g/dL Albumin (3.5-5.0) g/dL Amylase (30-110) U/L Lipase (23-300) U/L Urine Color Colorless Urine Appearance Clear (Clear) Urine pH 6.0 (5.0-8.0) Ur Specific [place] 1.029 (1.001-1.035) Urine Protein Negative (Negative) Urine Glucose (UA) 4+ H (Negative) Urine Ketones Negative (Negative) Urine Blood Negative (Negative) Urine Nitrite Negative (Negative) Urine Bilirubin Negative (Negative) Urine Urobilinogen <2.0 (<2.0) mg/dL Ur Leukocyte Esterase Negative (Negative) Serum Alcohol mg/dL Acetone, Qual (Negative) Influenza Type A (PCR) (Not Detectd) Influenza Type B (PCR) (Not Detectd) RSV (PCR) (Not Detectd) SARS-CoV-2 (PCR) (Not Detectd) - EKG Data -: EKG Interpreted by Me EKG Comments: 12-lead Electrocardiogram Interpretation Note EKG was reviewed and interpreted by myself. 12-lead ECG performed at 1247 is interpreted by me as revealing normal sinus rhythm at a rate of 68 beats per minute. Left axis deviation. MI interval is 147 ms, QRS durations 112 ms, QTc is 435 ms. Incomplete right bundle branch block morphology present.. There were no ST or T wave abnormalities to suggest myocardial ischemia or injury. R wave progression across the precordium was satisfactory. By my interpretation this EKG is non-diagnostic for acute ischemia. Disposition Clinical Impression: Hyperglycemia, Dehydration Disposition: HOME SELF-CARE Condition: Good Instructions (If sedation given, give patient instructions): Diabetic Hyperglycemia (ED) Is patient prescribed a controlled substance at d/c from ED?: No Referrals: Ramya Saul MD [Primary Care Provider] - 1-2 days Time of Disposition: 14:48
[2024-12-10 13:29] LABS: Basophils # (A) 0.01 10*3/uL (0.00-0.10); Basophils % (A) 0.2 %; Eosinophils # (A) 0.25 10*3/uL (0.04-0.35); Eosinophils % (A) 4.5 %; HCT 39.6 % (39.6-50.0); HGB 13.7 g/dL (13.0-17.0); Lymphocytes # (A) 1.42 10*3/uL (0.90-5.00); Lymphocytes % (A) 25.4 %; MCH 29.8 pg (27.0-32.0); MCHC 34.6 g/dL (32.0-37.0); MCV 86.1 fL (80.0-97.0); Mean Platelet Volume 9.9 fL (9.5-12.2); Monocytes % (A) 8.9 %; Neutrophils # (A) 3.33 10*3/uL (1.80-7.70); Neutrophils % (A) 59.6 %; Platelet Count 176 10*3/uL (140-440); RDW 14.5 % (11.5-14.5); WBC 5.59 10*3/uL (4.50-10.00)
[2024-12-10 13:41] LABS: ALT 21 U/L (4-49); AST 20 U/L (17-59); African American GFR (CKD) >90 (>60 ml/min/1.73 sqM); Albumin 3.4 g/dL (3.5-5.0); Alcohol <10 mg/dL; Alkaline Phosphatase 89 U/L (38-126); Amylase 40 U/L (30-110); Anion Gap 7 mmol/L; Blood Urea Nitrogen 16 mg/dL (9-20); Calcium 8.3 mg/dL (8.4-10.2); Carbon Dioxide 21 mmol/L (22-30); Chloride 110 mmol/L (98-107); Glucose 338 mg/dL (74-99); Lipase 116 U/L (23-300); Non-African American GFR(CKD) >90 (>60 ml/min/1.73 sqM); Potassium 3.8 mmol/L (3.5-5.1); Sodium 138 mmol/L (137-145); Total Bilirubin 0.4 mg/dL (0.2-1.3); Total Protein 5.3 g/dL (6.3-8.2)
[2024-12-10] MEDS: PANTOPRAZOLE 40 MG/10 ML VIAL IVP STA (13:44)
[2024-12-10] MEDS: ONDANSETRON 4 MG/2 ML VIAL IVP STA (13:44)
[2024-12-10] MEDS: SODIUM CHLORIDE 0.9% 1,000 ML IV SCH (13:44)
--- NOTE | 2024-12-10 13:46 | XR ---
EXAMINATION TYPE: XR chest 2V DATE OF EXAM: 12/10/2024 1:34 PM COMPARISON: Chest radiographs from 12/02/2024 CLINICAL INDICATION: Male, 54 years old with history of abdominal pain; [facility]ATED [facility]IN [facility] TECHNIQUE: XR chest 2V Frontal and lateral views of the chest. FINDINGS: Lungs/Pleura: There is no evidence of pleural effusion, focal consolidation, or pneumothorax. Pulmonary vascularity: Unremarkable. Heart/mediastinum: Cardiomediastinal silhouette is enlarged. Musculoskeletal: No acute osseous pathology. IMPRESSION: No acute cardiopulmonary disease/process. [facility], , 12/10/2024 1:44 PM
[2024-12-10 13:50] LABS: INR 0.9 (<1.2); Partial Thromboplastin Time 22.1 sec (22.0-30.0); Prothrombin Time 10.2 sec (10.0-12.5)
[2024-12-10 14:05] LABS: VBG PH 7.39 (7.31-7.41)
[2024-12-10 14:07] LABS: Influenza A Not Detected (Not Detectd); Influenza B Not Detected (Not Detectd); RSV Not Detected (Not Detectd)
[2024-12-10 14:21] LABS: Glucose,Whole Blood 290 mg/dL (70-110)
[2024-12-10] MEDS: ALBUTEROL NEBULIZED 2.5 MG/3 ML INHALATION STA (14:37)
[2024-12-10 15:29] LABS: Appearance,Urine Clear (Clear); Bilirubin,Urine Negative (Negative); Blood,Urine Negative (Negative); Color,Urine Colorless; Glucose,Urine (UA) 4+ (Negative); Ketones,Urine Negative (Negative); Leukocyte Esterase,Urine Negative (Negative); Nitrite,Urine Negative (Negative); Protein,Urine Negative (Negative); Specific Gravity,Urine 1.029 (1.001-1.035); Urobilinogen,Urine <2.0 mg/dL (<2.0)
[2024-12-10 15:41] VITALS: BP 128/84; PULSE 64; RESP 20; TEMP 98.3
== END 2024-12-10 16:20 | disposition home or self-care (01) ==
LOC: EC 12:40
DX: E11.65 Type 2 diabetes mellitus with hyperglycemia (principal); F17.200 Nicotine dependence, unspecified, uncomplicated; Z88.0 Allergy status to penicillin; Z88.1 Allergy status to other antibiotic agents; Z91.040 Latex allergy status; Z88.2 Allergy status to sulfonamides; Z88.8 Allergy status to other drugs, medicaments and biological substances; Z79.4 Long term (current) use of insulin
CPT/HCPCS: 36415; 94640; 93005; 80053; 82150; 82803; 82009; 83605; 83690; 85025; 85610; 85730; 81003; 87636; 71046; 99285; 96374; 96375; 96361; G0480; J2405; J2470; 80320

== ENCOUNTER 2024-12-14 14:27 | Emergency (ER) | payer MEDICARE, OTHER ==
[2024-12-14] MEDS: ONDANSETRON 4 MG/2 ML VIAL IVP STA (15:14)
[2024-12-14] MEDS: SODIUM CHLORIDE 0.9% 1,000 ML IV STA (15:15)
--- NOTE | 2024-12-14 15:24 | ED ---
General Adult HPI - General Source: patient, RN notes reviewed Mode of arrival: ambulatory Limitations: no limitations <Angela Joya - Last Filed: 12/14/24 15:45> <Valorie Oro - Last Filed: 12/14/24 18:13> - General Chief complaint: Nausea/Vomiting/Diarrhea Stated complaint: Nausea/Dizziness Time Seen by Provider: 12/14/24 14:38 - History of Present Illness Initial comments: 54-year-old male who is well-known to our emergency department with multiple comorbid conditions including CAD, diabetes, hypertension presenting to the ER with complaints of nausea, chest pain, dizziness. Patient states that he feels nauseated however denies vomiting. Endorses intermittent chest pain difficulty breathing states that he feels similar to when his blood sugars are elevated. He states that his blood sugar has been in the 200s today and takes metformin for this. presenting for further evaluation. (Angela Joya) - Related Data Home Medications Medication Instructions Recorded Confirmed Insulin Lispro [humaLOG Kwikpen] See Protocol SQ AC-TID 08/23/24 10/13/24 Albuterol Nebulized [Ventolin 2.5 mg INHALATION RT-Q6H PRN 09/30/24 10/13/24 Nebulized] Capsaicin Cream [Trixaicin Cream] 1 applic TOPICAL TID PRN 09/30/24 10/13/24 Fluticasone Furoate [Flonase 1 spray EA NOSTRIL BID PRN 09/30/24 10/13/24 Sensimist] Insulin Glargine,Hum.rec.anlog 15 unit SQ HS 09/30/24 10/13/24 [Insulin Glargine Solostar] Nicotine Polacrilex [Nicorette] 2 mg BC DIRECTED PRN 09/30/24 10/13/24 Ondansetron [Zofran] 4 mg PO Q8HR PRN 09/30/24 10/13/24 traZODone HCL [Desyrel] 100 mg PO HS 09/30/24 10/13/24 Ammonium Lactate [Amlactin] 1 applic TOPICAL DAILY 10/13/24 10/13/24 Previous Rx's Medication Instructions Recorded Aspirin EC [Ecotrin Low Dose] 81 mg PO DAILY 30 Days #30 tab 07/13/24 Pantoprazole [Protonix] 40 mg PO DAILY 30 Days #30 tab 07/13/24 Budesonide/Formoterol Fumarate 2 puff INHALATION RT-BID 30 Days 08/15/24 [Symbicort 80-4.5 Mcg Inhaler] #1 each Atorvastatin [Lipitor] 10 mg PO HS 30 Days #30 tab 09/19/24 Dapagliflozin Propanediol [Farxiga] 10 mg PO DAILY 30 Days #30 tab 09/19/24 Sertraline [Zoloft] 100 mg PO DAILY 30 Days #30 tab 09/19/24 busPIRone HCl [Buspar] 5 mg PO BID 30 Days #60 tab 09/19/24 ARIPiprazole IM SYRINGE [Abilify 400 mg IM QMONTHLY #1 each 10/04/24 Maintena Syringe] ARIPiprazole [Abilify] 15 mg PO DAILY 13 Days #13 tab 10/04/24 Allergies Allergy/AdvReac Type Severity Reaction Status Date / Time dicyclomine HCl [From Bentyl] Allergy Unknown Dyspnea Verified 12/14/24 14:33 latex Allergy Unknown Rash/Hives Verified 12/14/24 14:33 Benzoate Analogues Allergy Unknown Verified 12/14/24 14:33 benzonatate Allergy Unknown Verified 12/14/24 14:33 nitrofurantoin Allergy Nausea Verified 12/14/24 14:33 [From Macrobid] Penicillins Allergy "Lamar Verified 12/14/24 14:33 funny" adhesive AdvReac Unknown Itching Verified 12/14/24 14:33 ciprofloxacin AdvReac Unknown Nausea Verified 12/14/24 14:33 Macrolide Antibiotics AdvReac Unknown Nausea Verified 12/14/24 14:33 sulfamethoxazole AdvReac Unknown Unknown Verified 12/14/24 14:33 [From Bactrim] trimethoprim [From Bactrim] AdvReac Unknown Unknown Verified 12/14/24 14:33 diphenhydramine AdvReac Confusion Verified 12/14/24 14:33 [From Benadryl] Review of Systems ROS Other: All systems not noted in ROS Statement are negative. <Angela Joya - Last Filed: 12/14/24 15:45> ROS Other: All systems not noted in ROS Statement are negative. <Valorie Oro - Last Filed: 12/14/24 18:13> ROS Statement: Those systems with pertinent positive or pertinent negative responses have been documented in the HPI. Past Medical History Past Medical History: Asthma, Chest Pain / Angina, COPD, CVA/TIA, Diabetes Mellitus, GERD/Reflux, Hearing Disorder / Deafness, Hyperlipidemia, Hypertension, Liver Disease, Osteoarthritis (OA), Pneumonia, Seizure Disorder, Sleep Apnea/CPAP/BIPAP Additional Past Medical History / Comment(s): states CVA at 35 yrs old, no weakness @ this time. states seizure at 35 yrs old., DDD- back & neck pain., carpal tunnel syndrome. Has [facility] public guardian. History of Any Multi-Drug Resistant Organisms: None Reported, Other MDRO Past Surgical History: Heart Catheterization, Orthopedic Surgery Additional Past Surgical History / Comment(s): Cysts removed, left thumb surgery, colonoscopy 08/24/2019. Skin tags removed from both eyes. Past Anesthesia/Blood Transfusion Reactions: Motion Sickness, Postoperative N ausea & Vomiting (PONV) Past Psychological History: Anxiety, Bipolar, Depression Smoking Status: Current every day smoker Past Alcohol Use History: Abuse Past Drug Use History: None Reported - Past Family History Brother(s) Family Medical History: Diabetes Mellitus Additional Family Medical History / Comment(s): Patient has 2 brothers. One from complications from diabetes. The second is alive with diabetes. Sister(s) Family Medical History: Cancer Additional Family Medical History / Comment(s): Patient has one sister with breast cancer. Patient does not have any children. Father Family Medical History: Cancer Additional Family Medical History / Comment(s): Father in his 40s or 50s from colon cancer. Mother Family Medical History: Cancer Additional Family Medical History / Comment(s): Mother at age 68 from lung cancer. <Angela Joya - Last Filed: 12/14/24 15:45> General Exam Limitations: no limitations General appearance: alert, in no apparent distress ENT exam: Present: normal exam, mucous membranes moist Neck exam: Present: normal inspection. Absent: tenderness, meningismus, lymphadenopathy Respiratory exam: Present: normal lung sounds bilaterally. Absent: respiratory distress, wheezes, rales, rhonchi, stridor Cardiovascular Exam: Present: regular rate, normal rhythm, normal heart sounds. Absent: systolic murmur, diastolic murmur, rubs, gallop, clicks GI/Abdominal exam: Present: soft, normal bowel sounds. Absent: distended, tenderness, guarding, rebound, rigid Extremities exam: Present: normal inspection, full ROM, normal capillary refill. Absent: tenderness, pedal edema, joint swelling, calf tenderness Back exam: Present: normal inspection Skin exam: Present: warm, dry, intact, normal color. Absent: rash <Angela Joya - Last Filed: 12/14/24 15:45> Course Vital Signs 12/14/24 12/14/24 12/14/24 14:31 15:32 16:00 Temperature 97.8 F Pulse Rate 83 67 69 Respiratory 18 18 17 Rate Blood Pressure 120/84 118/84 120/79 O2 Sat by Pulse 98 96 96 Oximetry 12/14/24 17:00 Temperature Pulse Rate 60 Respiratory 17 Rate Blood Pressure 115/88 O2 Sat by Pulse 98 Oximetry Medical Decision Making - Lab Data Result diagrams: 12/14/24 15:19 <Angela Joya - Last Filed: 12/14/24 15:45> - Lab Data Result diagrams: 12/14/24 15:19 12/14/24 15:19 <Valorie Oro - Last Filed: 12/14/24 18:13> - Medical Decision Making Was pt. sent in by a medical professional or institution (Dr. PA, PARTITION MAKING MACHINE OPERATOR, urgent care, hospital, or [place] health care facility...) When possible be specific @ -[No] Did you speak to anyone other than the patient for history (EMS, parent, family, police, friend...)? What history was obtained from this source @ -[No] Did you review nursing and triage notes (agree or disagree)? Why? @ -[I reviewed and agree with nursing and triage notes] Were old charts reviewed (outside hosp., previous admission, EMS record, old EKG, old radiological studies, urgent care reports/EKG's, [place] health care facility records)? Report findings @ -[No old charts were reviewed] Differential Diagnosis (chest pain, altered mental status, abdominal pain women, abdominal pain men, vaginal bleeding, weakness, fever, dyspnea, syncope, hea dache, dizziness, GI bleed, back pain, seizure, CVA, palpatations, mental health, musculoskeletal)? @ -[not applicable] EKG interpreted by me (3pts min.). @ -Completed at 1501 sinus rhythm with a ventricular rate of 71, MT interval 146, QRS 102, QT 390, QTc 413. X-rays interpreted by me (1pt min.). @ -[None done] CT interpreted by me (1pt min.). @ -[None done] U/S interpreted by me (1pt. min.). @ -[None done] What testing was considered but not performed or refused? (CT, X-rays, U/S, labs)? Why? @ -[None] What meds were considered but not given or refused? Why? @ -[None] Did you discuss the management of the patient with other professionals (professionals i.e. , PA, PARTITION MAKING MACHINE OPERATOR, lab, RT, psych nurse, social work job titles, back tender fourdrinier, teacher, classification officer, manager rn case)? Give summary @ -[No] Was smoking cessation discussed for >3mins.? @ -[No] Was critical care preformed (if so, how long)? @ -[No] Were there social determinants of health that impacted care today? How? (Homelessness, low income, unemployed, alcoholism, drug addiction, transportation, low edu. Level, literacy, decrease access to med. care, intermediate, rehab)? @ -[No] Was there de-escalation of care discussed even if they declined (Discuss DNR or withdrawal of care, Hospice)? DNR status @ -[No] What co-morbidities impacted this encounter? (DM, HTN, Smoking, COPD, CAD, Cancer, CVA, ARF, Chemo, Hep., AIDS, mental health diagnosis, sleep apnea, morbid obesity)? @ -[None] Was patient admitted / discharged? Hospital course, mention meds given and route, prescriptions, significant lab abnormalities, going to OR and other pertinent info. @ -54-year-old male presenting for evaluation of chest pain, nausea, cough. Initial vitals are stable and patient is in no signs of acute distress on examination. Patient's EKG is in sinus rhythm. Undiagnosed new problem with uncertain prognosis? @ -[No] Drug Therapy requiring intensive monitoring for toxicity (Heparin, Nitro, Insulin, Cardizem)? @ -[No] Were any procedures done? @ -[No] Diagnosis/symptom? @ -[default] Acute, or Chronic, or Acute on Chronic? @ -[default] Uncomplicated (without systemic symptoms) or Complicated (systemic symptoms)? @ -[default] Side effects of treatment? @ -[No] Exacerbation, Progression, or Severe Exacerbation? @ -[No] Poses a threat to life or bodily function? How? (Chest pain, [place], [place], pneumonia, PE, COPD, DKA, ARF, appy, cholecystitis, CVA, Diverticulitis, Homicidal, Suicidal, threat to staff... and all critical care pts) @ -[No] (JoselynarmandAngela) Patient signed out to me pending labs. He has an array of complaints which are chronic for this patient. He had a normal stress test back in February and had cardiac catheterization in 2017 which showed normal coronary arteries. Negative troponin. Glucose 234. Urine shows no ketones and no evidence of infection. There is 3+ glucose. Negative acetone. Patient is discharged home. Follow-up with PCP. Report back to ER with any new or worsening symptoms. I discussed this case in detail with my attending Dr. Mccloud Diagnosis/symptom? @Diabetes Acute, or Chronic, or Acute on Chronic? @Chronic Uncomplicated (without systemic symptoms) or Complicated (systemic symptoms)? @complicated Side effects of treatment? @None Exacerbation, Progression, or Severe Exacerbation] @No Poses a threat to life or bodily function? @If the patient does not have stricter control of his glucose there is a threat (Valorie Oro) - Lab Data Lab Results 12/14/24 12/14/24 12/14/24 Range/Units 15:19 15:19 15:19 WBC 7.57 (4.50-10.00) 10*3/uL RBC 5.28 (4.40-5.60) 10*6/uL Hgb 15.8 (13.0-17.0) g/dL Hct 44.6 (39.6-50.0) % MCV 84.5 (80.0-97.0) fL MCH 29.9 (27.0-32.0) pg MCHC 35.4 (32.0-37.0) g/dL Plt Count 218 (140-440) 10*3/uL MPV 9.8 (9.5-12.2) fL Immature Gran % (Auto) 2.1 % Neutrophils % 70.2 % Lymphocytes % 16.5 % Monocytes % 7.5 % Eosinophils % 3.6 % Basophils % 0.1 % Immature Gran # 0.16 H (0.00-0.04) 10*3/uL Neutrophils # 5.31 (1.80-7.70) 10*3/uL Lymphocytes # 1.25 (0.90-5.00) 10*3/uL Monocytes # 0.57 (0.20-1.00) 10*3/uL Eosinophils # 0.27 (0.04-0.35) 10*3/uL Basophils # 0.01 (0.00-0.10) 10*3/uL Sodium 136 L (137-145) mmol/L Potassium 4.1 (3.5-5.1) mmol/L Chloride 102 (98-107) mmol/L Carbon Dioxide 26 (22-30) mmol/L Anion Gap 8 mmol/L BUN 17 (9-20) mg/dL Creatinine 0.62 L (0.66-1.25) mg/dL Est GFR (CKD-EPI)AfAm >90 (>60 ml/min/1.73 sqM) Est GFR (CKD-EPI)NonAf >90 (>60 ml/min/1.73 sqM) Glucose 234 H (74-99) mg/dL POC Glucose (mg/dL) (70-110) mg/dL POC Glu Keyliner ID Calcium 10.2 (8.4-10.2) mg/dL Magnesium 1.6 (1.6-2.3) mg/dL Total Bilirubin 0.4 (0.2-1.3) mg/dL AST 21 (17-59) U/L ALT 27 (4-49) U/L Alkaline Phosphatase 102 (38-126) U/L Troponin I <0.012 (0.000-0.034) ng/mL Total Protein 6.5 (6.3-8.2) g/dL Albumin 4.4 (3.5-5.0) g/dL Lipase 124 (23-300) U/L Urine Color Urine Appearance (Clear) Urine pH (5.0-8.0) Ur Specific [place] (1.001-1.035) Urine Protein (Negative) Urine Glucose (UA) (Negative) Urine Ketones (Negative) Urine Blood (Negative) Urine Nitrite (Negative) Urine Bilirubin (Negative) Urine Urobilinogen (<2.0) mg/dL Ur Leukocyte Esterase (Negative) Acetone, Qual Negative (Negative) 12/14/24 12/14/24 Range/Units 16:22 17:46 WBC (4.50-10.00) 10*3/uL RBC (4.40-5.60) 10*6/uL Hgb (13.0-17.0) g/dL Hct (39.6-50.0) % MCV (80.0-97.0) fL MCH (27.0-32.0) pg MCHC (32.0-37.0) g/dL Plt Count (140-440) 10*3/uL MPV (9.5-12.2) fL Immature Gran % (Auto) % Neutrophils % % Lymphocytes % % Monocytes % % Eosinophils % % Basophils % % Immature Gran # (0.00-0.04) 10*3/uL Neutrophils # (1.80-7.70) 10*3/uL Lymphocytes # (0.90-5.00) 10*3/uL Monocytes # (0.20-1.00) 10*3/uL Eosinophils # (0.04-0.35) 10*3/uL Basophils # (0.00-0.10) 10*3/uL Sodium (137-145) mmol/L Potassium (3.5-5.1) mmol/L Chloride (98-107) mmol/L Carbon Dioxide (22-30) mmol/L Anion Gap mmol/L BUN (9-20) mg/dL Creatinine (0.66-1.25) mg/dL Est GFR (CKD-EPI)AfAm (>60 ml/min/1.73 sqM) Est GFR (CKD-EPI)NonAf (>60 ml/min/1.73 sqM) Glucose (74-99) mg/dL POC Glucose (mg/dL) 251 H (70-110) mg/dL POC Glu Keyliner ID Troy Nichols Calcium (8.4-10.2) mg/dL Magnesium (1.6-2.3) mg/dL Total Bilirubin (0.2-1.3) mg/dL AST (17-59) U/L ALT (4-49) U/L Alkaline Phosphatase (38-126) U/L Troponin I (0.000-0.034) ng/mL Total Protein (6.3-8.2) g/dL Albumin (3.5-5.0) g/dL Lipase (23-300) U/L Urine Color Colorless Urine Appearance Clear (Clear) Urine pH 5.5 (5.0-8.0) Ur Specific [place] 1.013 (1.001-1.035) Urine Protein Negative (Negative) Urine Glucose (UA) 3+ H (Negative) Urine Ketones Negative (Negative) Urine Blood Negative (Negative) Urine Nitrite Negative (Negative) Urine Bilirubin Negative (Negative) Urine Urobilinogen <2.0 (<2.0) mg/dL Ur Leukocyte Esterase Negative (Negative) Acetone, Qual (Negative) Disposition <Angela Joya - Last Filed: 12/14/24 15:45> Is patient prescribed a controlled substance at d/c from ED?: No Time of Disposition: 18:10 <Valorie Oro - Last Filed: 12/14/24 18:13> Clinical Impression: Diabetes Disposition: HOME SELF-CARE Condition: Good Additional Instructions: Follow-up with your PCP. Report back to ER with any new or worsening symptoms. Referrals: Ramya Saul MD [Primary Care Provider] - 1-2 days
[2024-12-14 15:44] LABS: Basophils # (A) 0.01 10*3/uL (0.00-0.10); Basophils % (A) 0.1 %; Eosinophils # (A) 0.27 10*3/uL (0.04-0.35); Eosinophils % (A) 3.6 %; HCT 44.6 % (39.6-50.0); HGB 15.8 g/dL (13.0-17.0); Lymphocytes # (A) 1.25 10*3/uL (0.90-5.00); Lymphocytes % (A) 16.5 %; MCH 29.9 pg (27.0-32.0); MCHC 35.4 g/dL (32.0-37.0); MCV 84.5 fL (80.0-97.0); Mean Platelet Volume 9.8 fL (9.5-12.2); Monocytes # (A) 0.57 10*3/uL (0.20-1.00); Monocytes % (A) 7.5 %; Neutrophils # (A) 5.31 10*3/uL (1.80-7.70); Neutrophils % (A) 70.2 %; Platelet Count 218 10*3/uL (140-440); RBC 5.28 10*6/uL (4.40-5.60); WBC 7.57 10*3/uL (4.50-10.00)
[2024-12-14] MEDS: KETOROLAC 15 MG/ML 1 ML VIAL IVP STA (15:50)
[2024-12-14 16:07] LABS: ALT 27 U/L (4-49); AST 21 U/L (17-59); African American GFR (CKD) >90 (>60 ml/min/1.73 sqM); Albumin 4.4 g/dL (3.5-5.0); Alkaline Phosphatase 102 U/L (38-126); Anion Gap 8 mmol/L; Blood Urea Nitrogen 17 mg/dL (9-20); Calcium 10.2 mg/dL (8.4-10.2); Carbon Dioxide 26 mmol/L (22-30); Chloride 102 mmol/L (98-107); Glucose 234 mg/dL (74-99); Lipase 124 U/L (23-300); Magnesium 1.6 mg/dL (1.6-2.3); Non-African American GFR(CKD) >90 (>60 ml/min/1.73 sqM); Potassium 4.1 mmol/L (3.5-5.1); Sodium 136 mmol/L (137-145); Total Bilirubin 0.4 mg/dL (0.2-1.3); Total Protein 6.5 g/dL (6.3-8.2)
[2024-12-14 16:25] LABS: Glucose,Whole Blood 251 mg/dL (70-110)
[2024-12-14] MEDS: INSULIN REGULAR 100 UNIT/ML VIAL (IM/SQ) SQ ONE (16:35)
[2024-12-14] MEDS: METOCLOPRAMIDE 5 MG/ML 2 ML VIAL IVP STA (17:53)
[2024-12-14] MEDS: ACETAMINOPHEN TAB 325 MG TAB PO STA (17:55)
[2024-12-14 17:59] LABS: Appearance,Urine Clear (Clear); Bilirubin,Urine Negative (Negative); Blood,Urine Negative (Negative); Color,Urine Colorless; Glucose,Urine (UA) 3+ (Negative); Ketones,Urine Negative (Negative); Leukocyte Esterase,Urine Negative (Negative); Nitrite,Urine Negative (Negative); PH, Urine 5.5 (5.0-8.0); Protein,Urine Negative (Negative); Specific Gravity,Urine 1.013 (1.001-1.035); Urobilinogen,Urine <2.0 mg/dL (<2.0)
[2024-12-14 18:50] VITALS: BP 121/94; PULSE 65; RESP 20; TEMP 98.3
== END 2024-12-14 18:50 | disposition home or self-care (01) ==
LOC: EC 14:27
DX: E11.9 Type 2 diabetes mellitus without complications (principal); I25.10 Atherosclerotic heart disease of native coronary artery without angina pectoris; Z79.4 Long term (current) use of insulin; F17.200 Nicotine dependence, unspecified, uncomplicated; Z88.0 Allergy status to penicillin; Z88.1 Allergy status to other antibiotic agents; Z88.2 Allergy status to sulfonamides; Z91.09 Other allergy status, other than to drugs and biological substances; Z91.040 Latex allergy status; Z88.8 Allergy status to other drugs, medicaments and biological substances
CPT/HCPCS: 36415; 93005; 80053; 82009; 83690; 83735; 84484; 85025; 81003; 99284; 96374; 96375; 96361; J2765; J2405; J1885

== ENCOUNTER 2024-12-25 22:38 | Emergency (ER) | payer MEDICARE, OTHER ==
[2024-12-25 22:53] VITALS: TEMP 98.2
--- NOTE | 2024-12-25 23:13 | ED ---
Nausea/Vomiting/Diarrhea HPI - General Chief complaint: Nausea/Vomiting/Diarrhea Stated complaint: NVD Time Seen by Provider: 12/25/24 23:04 Source: patient, RN notes reviewed, old records reviewed Mode of arrival: wheelchair Limitations: no limitations - History of Present Illness Initial comments: This is a 54-year-old male well-known to this emergency department today. Patient is presenting for nausea and vomiting. Patient is well-known to our emergency department for a from a plethora of different complaints and ER visits today states he cannot keep anything down cannot drink water MD complaint: nausea, vomiting -: days(s) Description of Diarrhea: water Associated Abdominal Pain: No Severity: mild Severity scale (1-10): 2 Consistency: now resolved Improves with: none Worsens with: none - Related Data Home Medications Medication Instructions Recorded Confirmed Insulin Lispro [humaLOG Kwikpen] See Protocol SQ AC-TID 08/23/24 10/13/24 Albuterol Nebulized [Ventolin 2.5 mg INHALATION RT-Q6H PRN 09/30/24 10/13/24 Nebulized] Capsaicin Cream [Trixaicin Cream] 1 applic TOPICAL TID PRN 09/30/24 10/13/24 Fluticasone Furoate [Flonase 1 spray EA NOSTRIL BID PRN 09/30/24 10/13/24 Sensimist] Insulin Glargine,Hum.rec.anlog 15 unit SQ HS 09/30/24 10/13/24 [Insulin Glargine Solostar] Nicotine Polacrilex [Nicorette] 2 mg BC DIRECTED PRN 09/30/24 10/13/24 Ondansetron [Zofran] 4 mg PO Q8HR PRN 09/30/24 10/13/24 traZODone HCL [Desyrel] 100 mg PO HS 09/30/24 10/13/24 Ammonium Lactate [Amlactin] 1 applic TOPICAL DAILY 10/13/24 10/13/24 Previous Rx's Medication Instructions Recorded Aspirin EC [Ecotrin Low Dose] 81 mg PO DAILY 30 Days #30 tab 07/13/24 Pantoprazole [Protonix] 40 mg PO DAILY 30 Days #30 tab 07/13/24 Budesonide/Formoterol Fumarate 2 puff INHALATION RT-BID 30 Days 08/15/24 [Symbicort 80-4.5 Mcg Inhaler] #1 each Atorvastatin [Lipitor] 10 mg PO HS 30 Days #30 tab 09/19/24 Dapagliflozin Propanediol [Farxiga] 10 mg PO DAILY 30 Days #30 tab 09/19/24 Sertraline [Zoloft] 100 mg PO DAILY 30 Days #30 tab 09/19/24 busPIRone HCl [Buspar] 5 mg PO BID 30 Days #60 tab 09/19/24 ARIPiprazole IM SYRINGE [Abilify 400 mg IM QMONTHLY #1 each 10/04/24 Maintena Syringe] ARIPiprazole [Abilify] 15 mg PO DAILY 13 Days #13 tab 10/04/24 Allergies Allergy/AdvReac Type Severity Reaction Status Date / Time dicyclomine HCl [From Bentyl] Allergy Unknown Dyspnea Verified 12/25/24 22:51 latex Allergy Unknown Rash/Hives Verified 12/25/24 22:51 Benzoate Analogues Allergy Unknown Verified 12/25/24 22:51 benzonatate Allergy Unknown Verified 12/25/24 22:51 nitrofurantoin Allergy Nausea Verified 12/25/24 22:51 [From Macrobid] Penicillins Allergy "[place] Verified 12/25/24 22:51 funny" adhesive AdvReac Unknown Itching Verified 12/25/24 22:51 ciprofloxacin AdvReac Unknown Nausea Verified 12/25/24 22:51 Macrolide Antibiotics AdvReac Unknown Nausea Verified 12/25/24 22:51 sulfamethoxazole AdvReac Unknown Unknown Verified 12/25/24 22:51 [From Bactrim] trimethoprim [From Bactrim] AdvReac Unknown Unknown Verified 12/25/24 22:51 diphenhydramine AdvReac Confusion Verified 12/25/24 22:51 [From Benadryl] Review of Systems ROS Statement: Those systems with pertinent positive or pertinent negative responses have been documented in the HPI. ROS Other: All systems not noted in ROS Statement are negative. Past Medical History Past Medical History: Asthma, Chest Pain / Angina, COPD, CVA/TIA, Diabetes Mellitus, GERD/Reflux, Hearing Disorder / Deafness, Hyperlipidemia, Hypertension, Liver Disease, Osteoarthritis (OA), Pneumonia, Seizure Disorder, Sleep Apnea/CPAP/BIPAP Additional Past Medical History / Comment(s): states CVA at 35 yrs old, no weakness @ this time. states seizure at 35 yrs old., DDD- back & neck pain., carpal tunnel syndrome. Has [facility] public guardian. History of Any Multi-Drug Resistant Organisms: None Reported, Other MDRO Past Surgical History: Heart Catheterization, Orthopedic Surgery Additional Past Surgical History / Comment(s): Cysts removed, left thumb surgery, colonoscopy 08/24/2019. Skin tags removed from both eyes. Past Anesthesia/Blood Transfusion Reactions: Motion Sickness, Postoperative Nausea & Vomiting (PONV) Past Psychological History: Anxiety, Bipolar, Depression Smoking Status: Current every day smoker Past Alcohol Use History: Abuse Past Drug Use History: None Reported - Past Family History Brother(s) Family Medical History: Diabetes Mellitus Additional Family Medical History / Comment(s): Patient has 2 brothers. One from complications from diabetes. The second is alive with diabetes. Sister(s) Family Medical History: Cancer Additional Family Medical History / Comment(s): Patient has one sister with breast cancer. Patient does not have any children. Father Family Medical History: Cancer Additional Family Medical History / Comment(s): Father in his 40s or 50s from colon cancer. Mother Family Medical History: Cancer Additional Family Medical History / Comment(s): Mother at age 68 from lung cancer. General Exam Limitations: no limitations General appearance: alert, in no apparent distress Head exam: Present: atraumatic, normocephalic, normal inspection Eye exam: Present: normal appearance, PERRL, EOMI. Absent: scleral icterus, conjunctival injection, periorbital swelling ENT exam: Present: normal exam, mucous membranes moist Neck exam: Present: normal inspection. Absent: tenderness, meningismus, lymphadenopathy Respiratory exam: Present: normal lung sounds bilaterally. Absent: respiratory distress, wheezes, rales, rhonchi, stridor Cardiovascular Exam: Present: regular rate, normal rhythm, normal heart sounds. Absent: systolic murmur, diastolic murmur, rubs, gallop, clicks GI/Abdominal exam: Present: soft, normal bowel sounds. Absent: distended, tenderness, guarding, rebound, rigid Extremities exam: Present: normal inspection, full ROM, normal capillary refill. Absent: tenderness, pedal edema, joint swelling, calf tenderness Back exam: Present: normal inspection Neurological exam: Present: alert, oriented X3, CN II-XII intact Psychiatric exam: Present: normal affect, normal mood Skin exam: Present: warm, dry, intact, normal color. Absent: rash Course Vital Signs 12/25/24 22:51 Temperature 98.2 F Pulse Rate 72 Respiratory 16 Rate Blood Pressure 123/83 O2 Sat by Pulse 96 Oximetry - Reevaluation(s) Reevaluation #1: 12/25/24 23:21 Medical records reviewed Reevaluation #2: 12/25/24 23:21 Patient symptoms improved Reevaluation #3: 12/25/24 23:21 Patient informed of results and questions answered Reevaluation #4: Was pt. sent in by a medical professional or institution (, SEAN, SIGHTSEEING GUIDE, urgent care, hospital, or shelter...) When possible be specific @ -no Did you speak to anyone other than the patient for history (EMS, parent, family, police, friend...)? What history was obtained from this source @ -no Did you review nursing and triage notes (agree or disagree)? Why? @ -agree Are old charts reviewed (outside hosp., previous admission, EMS record, old EKG, old radiological studies, urgent care reports/EKG's, shelter records)? Report findings @ -yes Differential Diagnosis (chest pain, altered mental status, abdominal pain women, abdominal pain men, vaginal bleeding, weakness, fever, dyspnea, syncope, headache, dizziness, GI bleed, back pain, seizure, CVA, palpatations, mental health, musculoskeletal)? @ -prior EKG interpreted by me (3pts min.). @ -yes X-rays interpreted by me (1pt min.). @ -yes negative for acute disease CT interpreted by me (1pt min.). @ -no U/S interpreted by me (1pt. min.). @ -no What testing was considered but not performed or refused? (CT, X-rays, U/S, labs)? Why? @ -none What meds were considered but not given or refused? Why? @ -none Did you discuss the management of the patient with other professionals (professionals i.e. SEAN [place], SIGHTSEEING GUIDE, lab, RT, psych nurse, social worker school, medical reimbursement manager, teacher, chief legal officer, cyanide case hardener)? Give summary @ -no Was smoking cessation discussed for >3mins.? @ -no Was critical care preformed (if so, how long)? @ -no Were there social determinants of health that impacted care today? How? (Homelessness, low income, unemployed, alcoholism, drug addiction, transportation, low edu. Level, literacy, decrease access to med. care, [facility], rehab)? @ -none Was there de-escalation of care discussed even if they declined (Discuss DNR or withdrawal of care, Hospice)? DNR status @ -no What co-morbidities impacted this encounter? (DM, HTN, Smoking, COPD, CAD, Cancer, CVA, ARF, Chemo, Hep., AIDS, mental health diagnosis, sleep apnea, morbid obesity)? @ -none Was patient admitted / discharged? Hospital course, mention meds given and route, prescriptions, significant lab abnormalities, going to OR and other pertinent info. @ - Undiagnosed new problem with uncertain prognosis? @ -no Drug Therapy requiring intensive monitoring for toxicity (Heparin, Nitro, Insulin, Cardizem)? @ -no Were any procedures done? @ -no Diagnosis/symptom? @ - Acute, or Chronic, or Acute on Chronic? @ -Acute Uncomplicated (without systemic symptoms) or Complicated (systemic symptoms)? @ -Complicated Side effects of treatment? @ -no Exacerbation, Progression, or Severe Exacerbation? @ -exacerbation Poses a threat to life or bodily function? How? (Chest pain, USA, MS, pneumonia, PE, COPD, DKA, ARF, appy, cholecystitis, CVA, Diverticulitis, Homicidal, Suicidal, threat to staff... and all critical care pts) @ -yes Reevaluation #5: Differential Abdominal Pain Men: Appendicitis, cholecystitis, diverticulosis, ischemic bowel, pancreatitis, hepatitis, UTI, gastroenteritis, AAA, incarcerated hernia, bowel obstruction, constipation, inflammatory bowel, hepatitis, peptic ulcer disease, splenic infarction, perforated viscus, testicular torsion, this is not meant to be an all-inclusive list Medical Decision Making - Medical Decision Making 54 to the ER for evaluation of nausea vomiting. Patient has no findings here in the ER feels well will be discharged home Disposition Clinical Impression: Nausea & vomiting Disposition: HOME SELF-CARE Condition: Good Instructions (If sedation given, give patient instructions): Acute Nausea and Vomiting (ED) Is patient prescribed a controlled substance at d/c from ED?: No Referrals: Ramya Saul MD [Primary Care Provider] - 1-2 days Time of Disposition: 23:00
[2024-12-26] MEDS: ONDANSETRON ODT 4 MG TAB PO STA (00:32)
[2024-12-26 00:34] VITALS: BP 123/89; PULSE 79; RESP 18
== END 2024-12-26 00:36 | disposition home or self-care (01) ==
LOC: EC 22:38
DX: R11.2 Nausea with vomiting, unspecified (principal); F17.200 Nicotine dependence, unspecified, uncomplicated; Z88.0 Allergy status to penicillin; Z88.1 Allergy status to other antibiotic agents; Z88.2 Allergy status to sulfonamides; Z91.09 Other allergy status, other than to drugs and biological substances; Z91.040 Latex allergy status; Z88.8 Allergy status to other drugs, medicaments and biological substances
CPT/HCPCS: 99283

== ENCOUNTER 2024-12-28 18:15 | Emergency (ER) | payer MEDICARE, OTHER ==
[2024-12-28 18:36] VITALS: RESP 18
[2024-12-28 19:27] LABS: Glucose,Whole Blood 311 mg/dL (70-110)
--- NOTE | 2024-12-28 19:39 | ED ---
General Adult HPI - General Chief complaint: Nausea/Vomiting/Diarrhea Stated complaint: N/V/D Time Seen by Provider: 12/28/24 19:20 Source: patient, RN notes reviewed, old records reviewed Mode of arrival: ambulatory Limitations: no limitations - History of Present Illness Initial comments: 54-year-old male presenting with chief complaint of nausea vomiting diarrhea. This is a chronic issue for the patient. He states that it has been ongoing for some time but seems to be worse in the past 1 to 2 days. No fever. Patient is an insulin-dependent diabetic and states his blood sugars have been elevated. Patient has had no vomiting since arrival. He was seen in the waiting room for initial evaluation awaiting a room. - Related Data Home Medications Medication Instructions Recorded Confirmed Insulin Lispro [humaLOG Kwikpen] See Protocol SQ AC-TID 08/23/24 10/13/24 Albuterol Nebulized [Ventolin 2.5 mg INHALATION RT-Q6H PRN 09/30/24 10/13/24 Nebulized] Capsaicin Cream [Trixaicin Cream] 1 applic TOPICAL TID PRN 09/30/24 10/13/24 Fluticasone Furoate [Flonase 1 spray EA NOSTRIL BID PRN 09/30/24 10/13/24 Sensimist] Insulin Glargine,Hum.rec.anlog 15 unit SQ HS 09/30/24 10/13/24 [Insulin Glargine Solostar] Nicotine Polacrilex [Nicorette] 2 mg BC DIRECTED PRN 09/30/24 10/13/24 Ondansetron [Zofran] 4 mg PO Q8HR PRN 09/30/24 10/13/24 traZODone HCL [Desyrel] 100 mg PO HS 09/30/24 10/13/24 Ammonium Lactate [Amlactin] 1 applic TOPICAL DAILY 10/13/24 10/13/24 Previous Rx's Medication Instructions Recorded Aspirin EC [Ecotrin Low Dose] 81 mg PO DAILY 30 Days #30 tab 07/13/24 Pantoprazole [Protonix] 40 mg PO DAILY 30 Days #30 tab 07/13/24 Budesonide/Formoterol Fumarate 2 puff INHALATION RT-BID 30 Days 08/15/24 [Symbicort 80-4.5 Mcg Inhaler] #1 each Atorvastatin [Lipitor] 10 mg PO HS 30 Days #30 tab 09/19/24 Dapagliflozin Propanediol [Farxiga] 10 mg PO DAILY 30 Days #30 tab 09/19/24 Sertraline [Zoloft] 100 mg PO DAILY 30 Days #30 tab 09/19/24 busPIRone HCl [Buspar] 5 mg PO BID 30 Days #60 tab 09/19/24 ARIPiprazole IM SYRINGE [Abilify 400 mg IM QMONTHLY #1 each 10/04/24 Maintena Syringe] ARIPiprazole [Abilify] 15 mg PO DAILY 13 Days #13 tab 10/04/24 Allergies Allergy/AdvReac Type Severity Reaction Status Date / Time dicyclomine HCl [From Bentyl] Allergy Unknown Dyspnea Verified 12/25/24 22:51 latex Allergy Unknown Rash/Hives Verified 12/25/24 22:51 Benzoate Analogues Allergy Unknown Verified 12/25/24 22:51 benzonatate Allergy Unknown Verified 12/25/24 22:51 nitrofurantoin Allergy Nausea Verified 12/25/24 22:51 [From Macrobid] Penicillins Allergy "[place] Verified 12/25/24 22:51 funny" adhesive AdvReac Unknown Itching Verified 12/25/24 22:51 ciprofloxacin AdvReac Unknown Nausea Verified 12/25/24 22:51 Macrolide Antibiotics AdvReac Unknown Nausea Verified 12/25/24 22:51 sulfamethoxazole AdvReac Unknown Unknown Verified 12/25/24 22:51 [From Bactrim] trimethoprim [From Bactrim] AdvReac Unknown Unknown Verified 12/25/24 22:51 diphenhydramine AdvReac Confusion Verified 12/25/24 22:51 [From Benadryl] Review of Systems ROS Statement: Those systems with pertinent positive or pertinent negative responses have been documented in the HPI. ROS Other: All systems not noted in ROS Statement are negative. Past Medical History Past Medical History: Asthma, Chest Pain / Angina, COPD, CVA/TIA, Diabetes Mellitus, GERD/Reflux, Hearing Disorder / Deafness, Hyperlipidemia, Hypertension, Liver Disease, Osteoarthritis (OA), Pneumonia, Seizure Disorder, Sleep Apnea/CPAP/BIPAP Additional Past Medical History / Comment(s): states CVA at 35 yrs old, no weakness @ this time. states seizure at 35 yrs old., DDD- back & neck pain., carpal tunnel syndrome. Has [facility] public guardian. History of Any Multi-Drug Resistant Organisms: None Reported, Other MDRO Past Surgical History: Heart Catheterization, Orthopedic Surgery Additional Past Surgical History / Comment(s): Cysts removed, left thumb surgery, colonoscopy 08/24/2019. Skin tags removed from both eyes. Past Anesthesia/Blood Transfusion Reactions: Motion Sickness, Postoperative Nausea & Vomiting (PONV) Past Psychological History: Anxiety, Bipolar, Depression Smoking Status: Current every day smoker Past Alcohol Use History: Abuse Past Drug Use History: None Reported - Past Family History Brother(s) Family Medical History: Diabetes Mellitus Additional Family Medical History / Comment(s): Patient has 2 brothers. One from complications from diabetes. The second is alive with diabetes. Sister(s) Family Medical History: Cancer Additional Family Medical History / Comment(s): Patient has one sister with breast cancer. Patient does not have any children. Father Family Medical History: Cancer Additional Family Medical History / Comment(s): Father in his 40s or 50s from colon cancer. Mother Family Medical History: Cancer Additional Family Medical History / Comment(s): Mother at age 68 from lung cancer. General Exam Limitations: no limitations General appearance: alert, in no apparent distress Head exam: Present: atraumatic, normocephalic Eye exam: Present: normal appearance, PERRL ENT exam: Present: normal exam Neck exam: Present: normal inspection. Absent: tenderness, meningismus Respiratory exam: Present: normal lung sounds bilaterally. Absent: respiratory distress, wheezes Cardiovascular Exam: Present: regular rate, normal rhythm GI/Abdominal exam: Present: soft. Absent: distended, tenderness, guarding Extremities exam: Present: normal inspection, normal capillary refill Neurological exam: Present: alert, oriented X3, CN II-XII intact. Absent: motor sensory deficit Skin exam: Present: warm, dry, intact. Absent: cyanosis, diaphoretic Course Vital Signs 12/28/24 18:33 Temperature 98.3 F Pulse Rate 67 Respiratory 18 Rate Blood Pressure 133/83 O2 Sat by Pulse 99 Oximetry Medical Decision Making - Medical Decision Making Was pt. sent in by a medical professional or institution (, PA, CLIENT RELATIONS REPRESENTATIVE, urgent care, hospital, or group home...) When possible be specific @ -No Did you speak to anyone other than the patient for history (EMS, parent, family, police, friend...)? What history was obtained from this source @ -No Did you review nursing and triage notes (agree or disagree)? Why? @ -I reviewed and agree with nursing and triage notes Were old charts reviewed (outside hosp., previous admission, EMS record, old EKG, old radiological studies, urgent care reports/EKG's, group home records)? Report findings @ -No old charts were reviewed Differential Abdominal Pain Men: Appendicitis, cholecystitis, diverticulosis, ischemic bowel, pancreatitis, hepatitis, UTI, gastroenteritis, AAA, incarcerated hernia, bowel obstruction, constipation, inflammatory bowel, hepatitis, peptic ulcer disease, splenic i nfarction, perforated viscus, testicular torsion, this is not meant to be an all-inclusive list EKG interpreted by me (3pts min.). @ -As above X-rays interpreted by me (1pt min.). @ -None done CT interpreted by me (1pt min.). @ -None done U/S interpreted by me (1pt. min.). @ -None done What testing was considered but not performed or refused? (CT, X-rays, U/S, labs)? Why? @ -None What meds were considered but not given or refused? Why? @ -None Did you discuss the management of the patient with other professionals (professionals i.e. , PA, CLIENT RELATIONS REPRESENTATIVE, lab, RT, psych nurse, high school social science teacher, track superintendent, teacher, weapons officer, case repairer)? Give summary @ -No Was smoking cessation discussed for >3mins.? @ -No Was critical care preformed (if so, how long)? @ -No Were there social determinants of health that impacted care today? How? (Homelessness, low income, unemployed, alcoholism, drug addiction, transportation, low edu. Level, literacy, decrease access to med. care, assisted, rehab)? @ -No Was there de-escalation of care discussed even if they declined (Discuss DNR or withdrawal of care, Hospice)? DNR status @ -No What co-morbidities impacted this encounter? (DM, HTN, Smoking, COPD, CAD, Cancer, CVA, ARF, Chemo, Hep., AIDS, mental health diagnosis, sleep apnea, morbid obesity)? @ -Diabetes. Chronic nausea Was patient admitted / discharged? Hospital course, mention meds given and route, prescriptions, significant lab abnormalities, going to OR and other pertinent info. @ -54-year-old male presenting with chief complaint of nausea vomiting diarrhea. Patient appears well-hydrated. He has stable vitals. Blood sugar is obtained and is elevated. Patient is not tachypneic. Patient will continue to take his insulin as prescribed. He will follow-up with his primary care r egarding these chronic issues. Undiagnosed new problem with uncertain prognosis? @ -No Drug Therapy requiring intensive monitoring for toxicity (Heparin, Nitro, Insulin, Cardizem)? @ -No Were any procedures done? @ -No Diagnosis/symptom? @Nausea vomiting diarrhea Acute, or Chronic, or Acute on Chronic? @ -[Acute on chronic Uncomplicated (without systemic symptoms) or Complicated (systemic symptoms)? @ -Uncomplicated Side effects of treatment? @ -No Exacerbation, Progression, or Severe Exacerbation? @ -No Poses a threat to life or bodily function? How? (Chest pain, USA, [place], pneumonia, PE, COPD, DKA, ARF, appy, cholecystitis, CVA, Diverticulitis, Homicidal, Suicidal, threat to staff... and all critical care pts) @ -No - Lab Data Lab Results 12/28/24 Range/Units 19:27 POC Glucose (mg/dL) 311 H (70-110) mg/dL POC Glu Hog Dropper ID Cliff Kingluis alberto Disposition Clinical Impression: Nausea & vomiting Disposition: HOME SELF-CARE Condition: Good Instructions (If sedation given, give patient instructions): Acute Nausea and Vomiting (ED) Is patient prescribed a controlled substance at d/c from ED?: No Referrals: Ramya Saul MD [Primary Care Provider] - 1-2 days Time of Disposition: 19:44
[2024-12-28] MEDS: ONDANSETRON ODT 4 MG TAB PO STA (19:45)
[2024-12-28 20:25] VITALS: BP 121/79; PULSE 71; TEMP 98
== END 2024-12-28 20:24 | disposition home or self-care (01) ==
LOC: EC 18:15
DX: R11.2 Nausea with vomiting, unspecified (principal); F17.200 Nicotine dependence, unspecified, uncomplicated; Z88.8 Allergy status to other drugs, medicaments and biological substances; Z88.1 Allergy status to other antibiotic agents; Z88.0 Allergy status to penicillin; Z88.2 Allergy status to sulfonamides; Z91.040 Latex allergy status
CPT/HCPCS: 36415; 99284

== ENCOUNTER 2024-12-30 08:41 | Emergency (ER) | payer MEDICARE, OTHER ==
--- NOTE | 2024-12-30 09:11 | ED ---
General Adult HPI - General Chief complaint: Nausea/Vomiting/Diarrhea Stated complaint: High sugar, fever Time Seen by Provider: 12/30/24 08:43 Source: patient, RN notes reviewed, old records reviewed Mode of arrival: ambulatory Limitations: no limitations - History of Present Illness Initial comments: 54-year-old male presenting for evaluation of nausea and diarrhea. Patient does state this is a chronic issue. He states he feels dehydrated he states he was out in the heat yesterday. He also states that his blood sugars have been running high. Patient is noncompliant with diet recommendations. He denies vomiting but states he does have nausea. No abdominal pain. No measured fever. No chest pain. - Related Data Home Medications Medication Instructions Recorded Confirmed Insulin Lispro [humaLOG Kwikpen] See Protocol SQ AC-TID 08/23/24 10/13/24 Albuterol Nebulized [Ventolin 2.5 mg INHALATION RT-Q6H PRN 09/30/24 10/13/24 Nebulized] Capsaicin Cream [Trixaicin Cream] 1 applic TOPICAL TID PRN 09/30/24 10/13/24 Fluticasone Furoate [Flonase 1 spray EA NOSTRIL BID PRN 09/30/24 10/13/24 Sensimist] Insulin Glargine,Hum.rec.anlog 15 unit SQ HS 09/30/24 10/13/24 [Insulin Glargine Solostar] Nicotine Polacrilex [Nicorette] 2 mg BC DIRECTED PRN 09/30/24 10/13/24 Ondansetron [Zofran] 4 mg PO Q8HR PRN 09/30/24 10/13/24 traZODone HCL [Desyrel] 100 mg PO HS 09/30/24 10/13/24 Ammonium Lactate [Amlactin] 1 applic TOPICAL DAILY 10/13/24 10/13/24 Previous Rx's Medication Instructions Recorded Aspirin EC [Ecotrin Low Dose] 81 mg PO DAILY 30 Days #30 tab 07/13/24 Pantoprazole [Protonix] 40 mg PO DAILY 30 Days #30 tab 07/13/24 Budesonide/Formoterol Fumarate 2 puff INHALATION RT-BID 30 Days 08/15/24 [Symbicort 80-4.5 Mcg Inhaler] #1 each Atorvastatin [Lipitor] 10 mg PO HS 30 Days #30 tab 03/25/25 Dapagliflozin Propanediol [Farxiga] 10 mg PO DAILY 30 Days #30 tab 09/19/24 Sertraline [Zoloft] 100 mg PO DAILY 30 Days #30 tab 09/19/24 busPIRone HCl [Buspar] 5 mg PO BID 30 Days #60 tab 09/19/24 ARIPiprazole IM SYRINGE [Abilify 400 mg IM QMONTHLY #1 each 10/04/24 Maintena Syringe] ARIPiprazole [Abilify] 15 mg PO DAILY 13 Days #13 tab 10/04/24 Allergies Allergy/AdvReac Type Severity Reaction Status Date / Time dicyclomine HCl [From Bentyl] Allergy Unknown Dyspnea Verified 12/30/24 08:58 latex Allergy Unknown Rash/Hives Verified 12/30/24 08:58 Benzoate Analogues Allergy Unknown Verified 12/30/24 08:58 benzonatate Allergy Unknown Verified 12/30/24 08:58 nitrofurantoin Allergy Nausea Verified 12/30/24 08:58 [From Macrobid] Penicillins Allergy "[place] Verified 12/30/24 08:58 funny" adhesive AdvReac Unknown Itching Verified 12/30/24 08:58 ciprofloxacin AdvReac Unknown Nausea Verified 12/30/24 08:58 Macrolide Antibiotics AdvReac Unknown Nausea Verified 12/30/24 08:58 sulfamethoxazole AdvReac Unknown Unknown Verified 12/30/24 08:58 [From Bactrim] trimethoprim [From Bactrim] AdvReac Unknown Unknown Verified 12/30/24 08:58 diphenhydramine AdvReac Confusion Verified 12/30/24 08:58 [From Benadryl] Review of Systems ROS Statement: Those systems with pertinent positive or pertinent negative responses have been documented in the HPI. ROS Other: All systems not noted in ROS Statement are negative. Past Medical History Past Medical History: Asthma, Chest Pain / Angina, COPD, CVA/TIA, Diabetes Mellitus, GERD/Reflux, Hearing Disorder / Deafness, Hyperlipidemia, Hypertension, Liver Disease, Osteoarthritis (OA), Pneumonia, Seizure Disorder, Sleep Apnea/CPAP/BIPAP Additional Past Medical History / Comment(s): states CVA at 35 yrs old, no weakness @ this time. states seizure at 35 yrs old., DDD- back & neck pain., carpal tunnel syndrome. Has [employer] public guardian. History of Any Multi-Drug Resistant Organisms: None Reported, Other MDRO Past Surgical History: Heart Catheterization, Orthopedic Surgery Additional Past Surgical History / Comment(s): Cysts removed, left thumb surgery, colonoscopy 08/24/2019. Skin tags removed from both eyes. Past Anesthesia/Blood Transfusion Reactions: Motion Sickness, Postoperative Nausea & Vomiting (PONV) Past Psychological History: Anxiety, Bipolar, Depression Smoking Status: Current every day smoker Past Alcohol Use History: Abuse Past Drug Use History: None Reported - Past Family History Brother(s) Family Medical History: Diabetes Mellitus Additional Family Medical History / Comment(s): Patient has 2 brothers. One from complications from diabetes. The second is alive with diabetes. Sister(s) Family Medical History: Cancer Additional Family Medical History / Comment(s): Patient has one sister with breast cancer. Patient does not have any children. Father Family Medical History: Cancer Additional Family Medical History / Comment(s): Father in his 40s or 50s from colon cancer. Mother Family Medical History: Cancer Additional Family Medical History / Comment(s): Mother at age 68 from lung cancer. General Exam Limitations: no limitations General appearance: alert, in no apparent distress Head exam: Present: atraumatic, normocephalic Eye exam: Present: normal appearance, PERRL ENT exam: Present: mucous membranes dry Neck exam: Present: normal inspection. Absent: tenderness, meningismus Respiratory exam: Present: normal lung sounds bilaterally. Absent: respiratory distress, wheezes Cardiovascular Exam: Present: regular rate, normal rhythm GI/Abdominal exam: Present: soft. Absent: distended, tenderness, guarding Extremities exam: Present: normal inspection, normal capillary refill Neurological exam: Present: alert, oriented X3, CN II-XII intact. Absent: motor sensory deficit Psychiatric exam: Present: normal affect, normal mood Skin exam: Present: warm, dry, intact. Absent: cyanosis, diaphoretic Course Vital Signs 12/30/24 08:56 Temperature 98 F Pulse Rate 72 Respiratory 20 Rate Blood Pressure 124/83 O2 Sat by Pulse 99 Oximetry Medical Decision Making - Medical Decision Making Was pt. sent in by a medical professional or institution (, PA, WRISTER, urgent care, hospital, or [facility]...) When possible be specific @ -No Did you speak to anyone other than the patient for history (EMS, parent, family, police, friend...)? What history was obtained from this source @ -No Did you review nursing and triage notes (agree or disagree)? Why? @ -I reviewed and agree with nursing and triage notes Were old charts reviewed (outside hosp., previous admission, EMS record, old EKG, old radiological studies, urgent care reports/EKG's, [facility] records)? Report findings @ -No old charts were reviewed Differential Weakness: Hypoglycemia, shock, sepsis, hyponatremia, anemia, infection, VT, ETOH, adverse medicine reaction, overdose, stroke, this is not meant to be an all-inclusive list. EKG interpreted by me (3pts min.). @ -As above X-rays interpreted by me (1pt min.). @ -None done CT interpreted by me (1pt min.). @ -None done U/S interpreted by me (1pt. min.). @ -None done What testing was considered but not performed or refused? (CT, X-rays, U/S, labs)? Why? @ -None What meds were considered but not given or refused? Why? @ -None Did you discuss the management of the patient with other professionals (professionals i.e. , PA, WRISTER, lab, RT, psych nurse, social worker palliative care, contract agent, teacher, retail loan officer, welfare case worker)? Give summary @ -No Was smoking cessation discussed for >3mins.? @ -No Was critical care preformed (if so, how long)? @ -No Were there social determinants of health that impacted care today? How? (Homelessness, low income, unemployed, alcoholism, drug addiction, transportation, low edu. Level, literacy, decrease access to med. care, shelter, rehab)? @ -No Was there de-escalation of care discussed even if they declined (Discuss DNR or withdrawal of care, Hospice)? DNR status @ -No What co-morbidities impacted this encounter? (DM, HTN, Smoking, COPD, CAD, Cancer, CVA, ARF, Chemo, Hep., AIDS, mental health diagnosis, sleep apnea, morbid obesity)? @ -Diabetes Was patient admitted / discharged? Hospital course, mention meds given and route, prescriptions, significant lab abnormalities, going to OR and other pertinent info. @54-year-old male history of diabetes presenting with nausea, diarrhea. Patient well-appearing with stable vitals. Given liter fluid. He has normal CBC, CMP showing elevated blood sugar without signs of DKA. Patient will take his medications as prescribed and follow-up with his primary care provider. Undiagnosed new problem with uncertain prognosis? @ -No Drug Therapy requiring intensive monitoring for toxicity (Heparin, Nitro, Insulin, Cardizem)? @ -No Were any procedures done? @ -No Diagnosis/symptom? @ -[Nausea, dehydration Acute, or Chronic, or Acute on Chronic? @ -Chronic Uncomplicated (without systemic symptoms) or Complicated (systemic symptoms)? @ -[default Side effects of treatment? @ -No Exacerbation, Progression, or Severe Exacerbation? @ -No Poses a threat to life or bodily function? How? (Chest pain, USA, VT, pneumonia, PE, COPD, DKA, ARF, appy, cholecystitis, CVA, Diverticulitis, Homicidal, Suicidal, threat to staff... and all critical care pts) @ -No - Lab Data Result diagrams: 12/30/24 09:38 12/30/24 09:38 Lab Results 12/30/24 12/30/24 Range/Units 09:38 09:38 WBC 6.28 (4.50-10.00) 10*3/uL RBC 4.89 (4.40-5.60) 10*6/uL Hgb 14.9 (13.0-17.0) g/dL Hct 42.0 (39.6-50.0) % MCV 85.9 (80.0-97.0) fL MCH 30.5 (27.0-32.0) pg MCHC 35.5 (32.0-37.0) g/dL Plt Count 189 (140-440) 10*3/uL MPV 9.7 (9.5-12.2) fL Immature Gran % (Auto) 2.2 % Neutrophils % 65.9 % Lymphocytes % 19.3 % Monocytes % 8.3 % Eosinophils % 4.0 % Basophils % 0.3 % Immature Gran # 0.14 H (0.00-0.04) 10*3/uL Neutrophils # 4.14 (1.80-7.70) 10*3/uL Lymphocytes # 1.21 (0.90-5.00) 10*3/uL Monocytes # 0.52 (0.20-1.00) 10*3/uL Eosinophils # 0.25 (0.04-0.35) 10*3/uL Basophils # 0.02 (0.00-0.10) 10*3/uL Sodium 140 (137-145) mmol/L Potassium 4.2 (3.5-5.1) mmol/L Chloride 110 H (98-107) mmol/L Carbon Dioxide 22 (22-30) mmol/L Anion Gap 8 mmol/L BUN 13 (9-20) mg/dL Creatinine 0.62 L (0.66-1.25) mg/dL Est GFR (CKD-EPI)AfAm >90 (>60 ml/min/1.73 sqM) Est GFR (CKD-EPI)NonAf >90 (>60 ml/min/1.73 sqM) Glucose 266 H (74-99) mg/dL Calcium 9.6 (8.4-10.2) mg/dL Total Bilirubin 0.4 (0.2-1.3) mg/dL AST 23 (17-59) U/L ALT 31 (4-49) U/L Alkaline Phosphatase 94 (38-126) U/L Total Protein 6.3 (6.3-8.2) g/dL Albumin 4.2 (3.5-5.0) g/dL Disposition Clinical Impression: Dehydration, Diabetes, Nausea & vomiting Disposition: HOME SELF-CARE Condition: Fair Instructions (If sedation given, give patient instructions): Acute Diarrhea (ED), Acute Nausea and Vomiting (ED) Is patient prescribed a controlled substance at d/c from ED?: No Referrals: Ramya Saul MD [Primary Care Provider] - 1-2 days Time of Disposition: 10:32
[2024-12-30] MEDS: SODIUM CHLORIDE 0.9% 1,000 ML IV ONE (09:39)
[2024-12-30 09:51] LABS: Basophils # (A) 0.02 10*3/uL (0.00-0.10); Basophils % (A) 0.3 %; Eosinophils # (A) 0.25 10*3/uL (0.04-0.35); Eosinophils % (A) 4.0 %; HCT 42.0 % (39.6-50.0); HGB 14.9 g/dL (13.0-17.0); Lymphocytes # (A) 1.21 10*3/uL (0.90-5.00); Lymphocytes % (A) 19.3 %; MCH 30.5 pg (27.0-32.0); MCHC 35.5 g/dL (32.0-37.0); MCV 85.9 fL (80.0-97.0); Monocytes # (A) 0.52 10*3/uL (0.20-1.00); Monocytes % (A) 8.3 %; Neutrophils # (A) 4.14 10*3/uL (1.80-7.70); Neutrophils % (A) 65.9 %; Platelet Count 189 10*3/uL (140-440); RBC 4.89 10*6/uL (4.40-5.60); RDW 13.8 % (11.5-14.5); WBC 6.28 10*3/uL (4.50-10.00)
[2024-12-30 10:08] LABS: ALT 31 U/L (4-49); AST 23 U/L (17-59); African American GFR (CKD) >90 (>60 ml/min/1.73 sqM); Albumin 4.2 g/dL (3.5-5.0); Alkaline Phosphatase 94 U/L (38-126); Anion Gap 8 mmol/L; Blood Urea Nitrogen 13 mg/dL (9-20); Calcium 9.6 mg/dL (8.4-10.2); Carbon Dioxide 22 mmol/L (22-30); Chloride 110 mmol/L (98-107); Glucose 266 mg/dL (74-99); Non-African American GFR(CKD) >90 (>60 ml/min/1.73 sqM); Potassium 4.2 mmol/L (3.5-5.1); Sodium 140 mmol/L (137-145); Total Protein 6.3 g/dL (6.3-8.2)
[2024-12-30 10:17] VITALS: BP 124/83; PULSE 72; RESP 20; TEMP 98
== END 2024-12-30 11:39 | disposition home or self-care (01) ==
LOC: EC 08:41
DX: E86.0 Dehydration (principal); R11.2 Nausea with vomiting, unspecified; E11.9 Type 2 diabetes mellitus without complications; Z79.84 Long term (current) use of oral hypoglycemic drugs; Z91.119 Patient's noncompliance with dietary regimen due to unspecified reason; F17.200 Nicotine dependence, unspecified, uncomplicated; Z88.0 Allergy status to penicillin; Z88.1 Allergy status to other antibiotic agents; Z88.2 Allergy status to sulfonamides; Z91.09 Other allergy status, other than to drugs and biological substances; Z91.040 Latex allergy status; Z88.8 Allergy status to other drugs, medicaments and biological substances
CPT/HCPCS: 36415; 80053; 85025; 96360; 99284

== ENCOUNTER 2025-01-01 15:11 | Emergency (ER) | payer MEDICARE, OTHER ==
[2025-01-01 15:16] VITALS: BP 135/82; PULSE 63; RESP 16; TEMP 97.9
--- NOTE | 2025-01-01 17:26 | ED ---
Psych HPI - General Chief Complaint: Psychiatric Symptoms Stated Complaint: Mental health eval Time Seen by Provider: 01/01/25 17:25 Source: patient, RN notes reviewed, old records reviewed Mode of arrival: ambulatory Limitations: no limitations - History of Present Illness Initial Comments: This is a 54-year-old male to the ER for evaluation patient is here for evaluation of psychiatric illness patient states he is having depression upset with living situation MD Complaint: feels depressed -: days(s) Associated Psychiatric Symptoms: depression Quality: constant Improves With: none Worsens With: none Context: not taking psychiatric medications, significant life stressor Associated Symptoms: denies other symptoms Treatments Prior to Arrival: placed on mental health hold - Related Data Home Medications Medication Instructions Recorded Confirmed Insulin Lispro [humaLOG Kwikpen] See Protocol SQ AC-TID 08/23/24 10/13/24 Albuterol Nebulized [Ventolin 2.5 mg INHALATION RT-Q6H PRN 09/30/24 10/13/24 Nebulized] Capsaicin Cream [Trixaicin Cream] 1 applic TOPICAL TID PRN 09/30/24 10/13/24 Fluticasone Furoate [Flonase 1 spray EA NOSTRIL BID PRN 09/30/24 10/13/24 Sensimist] Insulin Glargine,Hum.rec.anlog 15 unit SQ HS 09/30/24 10/13/24 [Insulin Glargine Solostar] Nicotine Polacrilex [Nicorette] 2 mg BC DIRECTED PRN 09/30/24 10/13/24 Ondansetron [Zofran] 4 mg PO Q8HR PRN 09/30/24 10/13/24 traZODone HCL [Desyrel] 100 mg PO HS 09/30/24 10/13/24 Ammonium Lactate [Amlactin] 1 applic TOPICAL DAILY 10/13/24 10/13/24 Previous Rx's Medication Instructions Recorded Aspirin EC [Ecotrin Low Dose] 81 mg PO DAILY 30 Days #30 tab 07/13/24 Pantoprazole [Protonix] 40 mg PO DAILY 30 Days #30 tab 07/13/24 Budesonide/Formoterol Fumarate 2 puff INHALATION RT-BID 30 Days 08/15/24 [Symbicort 80-4.5 Mcg Inhaler] #1 each Atorvastatin [Lipitor] 10 mg PO HS 30 Days #30 tab 03/25/25 Dapagliflozin Propanediol [Farxiga] 10 mg PO DAILY 30 Days #30 tab 09/19/24 Sertraline [Zoloft] 100 mg PO DAILY 30 Days #30 tab 09/19/24 busPIRone HCl [Buspar] 5 mg PO BID 30 Days #60 tab 09/19/24 ARIPiprazole IM SYRINGE [Abilify 400 mg IM QMONTHLY #1 each 10/04/24 Maintena Syringe] ARIPiprazole [Abilify] 15 mg PO DAILY 13 Days #13 tab 10/04/24 Allergies Allergy/AdvReac Type Severity Reaction Status Date / Time dicyclomine HCl [From Bentyl] Allergy Unknown Dyspnea Verified 12/30/24 08:58 latex Allergy Unknown Rash/Hives Verified 12/30/24 08:58 Benzoate Analogues Allergy Unknown Verified 12/30/24 08:58 benzonatate Allergy Unknown Verified 12/30/24 08:58 nitrofurantoin Allergy Nausea Verified 12/30/24 08:58 [From Macrobid] Penicillins Allergy "[place] Verified 12/30/24 08:58 funny" adhesive AdvReac Unknown Itching Verified 12/30/24 08:58 ciprofloxacin AdvReac Unknown Nausea Verified 12/30/24 08:58 Macrolide Antibiotics AdvReac Unknown Nausea Verified 12/30/24 08:58 sulfamethoxazole AdvReac Unknown Unknown Verified 12/30/24 08:58 [From Bactrim] trimethoprim [From Bactrim] AdvReac Unknown Unknown Verified 12/30/24 08:58 diphenhydramine AdvReac Confusion Verified 12/30/24 08:58 [From Benadryl] Review of Systems ROS Statement: Those systems with pertinent positive or pertinent negative responses have been documented in the HPI. ROS Other: All systems not noted in ROS Statement are negative. Past Medical History Past Medical History: Asthma, Chest Pain / Angina, COPD, CVA/TIA, Diabetes Mellitus, GERD/Reflux, Hearing Disorder / Deafness, Hyperlipidemia, Hypertension, Liver Disease, Osteoarthritis (OA), Pneumonia, Seizure Disorder, Sleep Apnea/CPAP/BIPAP Additional Past Medical History / Comment(s): states CVA at 35 yrs old, no weakness @ this time. states seizure at 35 yrs old., DDD- back & neck pain., carpal tunnel syndrome. Has [employer] public guardian. History of Any Multi-Drug Resistant Organisms: None Reported, Other MDRO Past Surgical History: Heart Catheterization, Orthopedic Surgery Additional Past Surgical History / Comment(s): Cysts removed, left thumb surgery, colonoscopy 08/24/2019. Skin tags removed from both eyes. Past Anesthesia/Blood Transfusion Reactions: Motion Sickness, Postoperative Nausea & Vomiting (PONV) Past Psychological History: Anxiety, Bipolar, Depression Smoking Status: Current every day smoker Past Alcohol Use History: Abuse Past Drug Use History: None Reported - Past Family History Brother(s) Family Medical History: Diabetes Mellitus Additional Family Medical History / Comment(s): Patient has 2 brothers. One from complications from diabetes. The second is alive with diabetes. Sister(s) Family Medical History: Cancer Additional Family Medical History / Comment(s): Patient has one sister with breast cancer. Patient does not have any children. Father Family Medical History: Cancer Additional Family Medical History / Comment(s): Father in his 40s or 50s from colon cancer. Mother Family Medical History: Cancer Additional Family Medical History / Comment(s): Mother at age 68 from lung cancer. General Exam Limitations: no limitations General appearance: alert, in no apparent distress Head exam: Present: atraumatic, normocephalic, normal inspection Eye exam: Present: normal appearance, PERRL, EOMI. Absent: scleral icterus, conjunctival injection, periorbital swelling ENT exam: Present: normal exam, mucous membranes moist Neck exam: Present: normal inspection. Absent: tenderness, meningismus, lymphadenopathy Respiratory exam: Present: normal lung sounds bilaterally. Absent: respiratory distress, wheezes, rales, rhonchi, stridor Cardiovascular Exam: Present: regular rate, normal rhythm, normal heart sounds. Absent: systolic murmur, diastolic murmur, rubs, gallop, clicks GI/Abdominal exam: Present: soft, normal bowel sounds. Absent: distended, tenderness, guarding, rebound, rigid Extremities exam: Present: normal inspection, full ROM, normal capillary refill. Absent: tenderness, pedal edema, joint swelling, calf tenderness Back exam: Present: normal inspection Neurological exam: Present: alert, oriented X3, CN II-XII intact Psychiatric exam: Present: normal affect, normal mood Skin exam: Present: warm, dry, intact, normal color. Absent: rash Course Vital Signs 01/01/25 15:13 Temperature 97.9 F Pulse Rate 63 Respiratory 16 Rate Blood Pressure 135/82 O2 Sat by Pulse 98 Oximetry - Reevaluation(s) Reevaluation #1: 01/01/25 23:00 Medical records reviewed Reevaluation #2: 01/01/25 23:00 Medically cleared for psychiatric evaluation Reevaluation #3: Was pt. sent in by a medical professional or institution (SEAN Cordova, SENIOR JAVA ENGINEER, urgent care, hospital, or [facility]...) When possible be specific @ -no Did you speak to anyone other than the patient for history (EMS, parent, family, police, friend...)? What history was obtained from this source @ -no Did you review nursing and triage notes (agree or disagree)? Why? @ -agree Are old charts reviewed (outside hosp., previous admission, EMS record, old EKG, old radiological studies, urgent care reports/EKG's, [facility] records)? Report findings @ -yes Differential Diagnosis (chest pain, altered mental status, abdominal pain women, abdominal pain men, vaginal bleeding, weakness, fever, dyspnea, syncope, headache, dizziness, GI bleed, back pain, seizure, CVA, palpatations, mental health, musculoskeletal)? @ -prior EKG interpreted by me (3pts min.). @ -yes X-rays interpreted by me (1pt min.). @ -yes negative for acute disease CT interpreted by me (1pt min.). @ -no U/S interpreted by me (1pt. min.). @ -no What testing was considered but not performed or refused? (CT, X-rays, U/S, labs)? Why? @ -none What meds were considered but not given or refused? Why? @ -none Did you discuss the management of the patient with other professionals (professionals i.e. SEAN Cordova, SENIOR JAVA ENGINEER, lab, RT, psych nurse, outreach and education social worker, feeder/folder, teacher, motorized squad commanding officer, supportive employment case manager)? Give summary @ -no Was smoking cessation discussed for >3mins.? @ -no Was critical care preformed (if so, how long)? @ -no Were there social determinants of health that impacted care today? How? (Homeles sness, low income, unemployed, alcoholism, drug addiction, transportation, low edu. Level, literacy, decrease access to med. care, group home, rehab)? @ -none Was there de-escalation of care discussed even if they declined (Discuss DNR or withdrawal of care, Hospice)? DNR status @ -no What co-morbidities impacted this encounter? (DM, HTN, Smoking, COPD, CAD, Cancer, CVA, ARF, Chemo, Hep., AIDS, mental health diagnosis, sleep apnea, morbid obesity)? @ -none Was patient admitted / discharged? Hospital course, mention meds given and route, prescriptions, significant lab abnormalities, going to OR and other pertinent info. @ - Undiagnosed new problem with uncertain prognosis? @ -no Drug Therapy requiring intensive monitoring for toxicity (Heparin, Nitro, Insulin, Cardizem)? @ -no Were any procedures done? @ -no Diagnosis/symptom? @ - Acute, or Chronic, or Acute on Chronic? @ -Acute Uncomplicated (without systemic symptoms) or Complicated (systemic symptoms)? @ -Complicated Side effects of treatment? @ -no Exacerbation, Progression, or Severe Exacerbation? @ -exacerbation Poses a threat to life or bodily function? How? (Chest pain, USA, [place], pneumonia, PE, COPD, DKA, ARF, appy, cholecystitis, CVA, Diverticulitis, Homicidal, Suicidal, threat to staff... and all critical care pts) @ -yes Reevaluation #4: Differential Mental Health Depression, anxiety, bipolar, psychosis, schizophrenia, borderline personality, situational depression, adjustment disorder, behavioral disorder, brain tumor, malingering, substance abuse, encephalopathy, medication reaction, dementia, hypothyroidism, degenerative neurologic disorder, lupus.... This is not meant to be all-inclusive list Medical Decision Making - Medical Decision Making 54 male seen eval by psychiatry okay for discharge home Disposition Clinical Impression: Generalized anxiety disorder, Depression Disposition: HOME SELF-CARE Condition: Fair Is patient prescribed a controlled substance at d/c from ED?: No Referrals: Ramya Saul MD [Primary Care Provider] - 1-2 days
== END 2025-01-01 23:10 | disposition home or self-care (01) ==
LOC: EC 15:11
DX: F41.1 Generalized anxiety disorder (principal); F32.A Depression, unspecified; F17.200 Nicotine dependence, unspecified, uncomplicated; Z91.040 Latex allergy status; Z88.8 Allergy status to other drugs, medicaments and biological substances; Z88.1 Allergy status to other antibiotic agents; Z88.0 Allergy status to penicillin; Z86.73 Personal history of transient ischemic attack (TIA), and cerebral infarction without residual deficits; Z88.2 Allergy status to sulfonamides; Z91.048 Other nonmedicinal substance allergy status
CPT/HCPCS: 82075; 99284

== ENCOUNTER 2025-01-02 17:39 | Inpatient (IN) | payer MEDICARE, MEDICAID ==
--- NOTE | 2025-01-02 18:12 | ED ---
Psych HPI <Shawn Vizcarra - Last Filed: 01/03/25 12:57> - General Source: patient, police, RN notes reviewed, old records reviewed Mode of arrival: ambulatory Limitations: no limitations - History of Present Illness MD Complaint: suicidal ideation, feels depressed -: year(s) Associated Psychiatric Symptoms: depression, suicidal ideation History of same: Yes Quality: constant Improves With: none Worsens With: none Associated Symptoms: denies other symptoms Treatments Prior to Arrival: placed on mental health hold If Self Harm: admits thoughts of self harm <Andrea Sheppard - Last Filed: 01/08/25 04:01> - General Chief Complaint: Psychiatric Symptoms Stated Complaint: mental health eval Time Seen by Provider: 01/02/25 18:04 - History of Present Illness Initial Comments: This is a 54-year-old male who presents with depression and suicidal ideation. Patient is petitioned by police for psychiatric evaluation and treatment (Andrea Sheppard) - Related Data Home Medications Medication Instructions Recorded Confirmed Insulin Lispro [humaLOG Kwikpen] See Protocol SQ AC-TID 08/23/24 01/03/25 Insulin Glargine,Hum.rec.anlog 20 unit SQ HS 09/30/24 01/03/25 [Insulin Glargine Solostar] ARIPiprazole IM SYRINGE [Abilify 400 mg IM Q28D 01/03/25 01/03/25 Maintena Syringe] Albuterol Inhaler [Ventolin Hfa 2 puff INHALATION RT-Q6H PRN 01/03/25 01/03/25 Inhaler] Cetirizine HCl [Zyrtec] 10 mg PO DAILY 01/03/25 01/03/25 Citalopram Hydrobromide [CeleXA] 40 mg PO DAILY 01/03/25 01/03/25 Montelukast [Singulair] 10 mg PO DAILY 01/03/25 01/03/25 Naproxen [EC-Naprosyn] 500 mg PO BID PRN 01/03/25 01/03/25 Omeprazole [PriLOSEC] 40 mg PO BID 01/03/25 01/03/25 QUEtiapine [SEROquel] 200 mg PO HS 01/03/25 01/03/25 Tamsulosin [Flomax] 0.4 mg PO BID 01/03/25 01/03/25 glipiZIDE 2.5 mg PO DAILY 01/03/25 01/03/25 metFORMIN HCL ER [Glucophage XR] 500 mg PO BID 01/03/25 01/03/25 Previous Rx's Medication Instructions Recorded Aspirin EC [Ecotrin Low Dose] 81 mg PO DAILY 30 Days #30 tab 07/13/24 Budesonide/Formoterol Fumarate 2 puff INHALATION RT-BID 30 Days 08/15/24 [Symbicort 80-4.5 Mcg Inhaler] #1 each Allergies Allergy/AdvReac Type Severity Reaction Status Date / Time dicyclomine HCl [From Bentyl] Allergy Unknown Dyspnea Verified 01/03/25 14:17 latex Allergy Unknown Rash/Hives Verified 01/03/25 14:17 Benzoate Analogues Allergy Unknown Verified 01/03/25 14:17 benzonatate Allergy Unknown Verified 01/03/25 14:17 nitrofurantoin Allergy Nausea Verified 01/03/25 14:17 [From Macrobid] Penicillins Allergy "[place] Verified 01/03/25 14:17 funny" adhesive AdvReac Unknown Itching Verified 01/03/25 14:17 ciprofloxacin AdvReac Unknown Nausea Verified 01/03/25 14:17 Macrolide Antibiotics AdvReac Unknown Nausea Verified 01/03/25 14:17 sulfamethoxazole AdvReac Unknown Unknown Verified 01/03/25 14:17 [From Bactrim] trimethoprim [From Bactrim] AdvReac Unknown Unknown Verified 01/03/25 14:17 diphenhydramine AdvReac Confusion Verified 01/03/25 14:17 [From Benadryl] Review of Systems ROS Other: All systems not noted in ROS Statement are negative. <Shawn Vizcarra - Last Filed: 01/03/25 12:57> ROS Other: All systems not noted in ROS Statement are negative. <Andrea Sheppard - Last Filed: 01/08/25 04:01> ROS Statement: Those systems with pertinent positive or pertinent negative responses have been documented in the HPI. Past Medical History Past Medical History: Asthma, Chest Pain / Angina, COPD, CVA/TIA, Diabetes Mellitus, GERD/Reflux, Hearing Disorder / Deafness, Hyperlipidemia, Hypertension, Liver Disease, Osteoarthritis (OA), Pneumonia, Seizure Disorder, Sleep Apnea/CPAP/BIPAP Additional Past Medical History / Comment(s): states CVA at 35 yrs old, no weakness @ this time. states seizure at 35 yrs old., DDD- back & neck pain., carpal tunnel syndrome. Has [employer] public guardian. History of Any Multi-Drug Resistant Organisms: None Reported, Other MDRO Past Surgical History: Heart Catheterization, Orthopedic Surgery Additional Past Surgical History / Comment(s): Cysts removed, left thumb surgery, colonoscopy 08/24/2019. Skin tags removed from both eyes. Past Anesthesia/Blood Transfusion Reactions: Motion Sickness, Postoperative Nausea & Vomiting (PONV) Past Psychological History: Anxiety, Bipolar, Depression Smoking Status: Current every day smoker Past Alcohol Use History: Abuse Past Drug Use History: None Reported - Past Family History Brother(s) Family Medical History: Diabetes Mellitus Additional Family Medical History / Comment(s): Patient has 2 brothers. One from complications from diabetes. The second is alive with diabetes. Sister(s) Family Medical History: Cancer Additional Family Medical History / Comment(s): Patient has one sister with breast cancer. Patient does not have any children. Father Family Medical History: Cancer Additional Family Medical History / Comment(s): Father in his 40s or 50s from colon cancer. Mother Family Medical History: Cancer Additional Family Medical History / Comment(s): Mother at age 68 from lung cancer. <Andrea Sheppard - Last Filed: 01/08/25 04:01> General Exam General appearance: alert, in no apparent distress Head exam: Present: atraumatic, normocephalic, normal inspection Eye exam: Present: normal appearance, PERRL, EOMI. Absent: scleral icterus, conjunctival injection, periorbital swelling ENT exam: Present: normal exam, mucous membranes moist Neck exam: Present: normal inspection. Absent: tenderness, meningismus, lymphadenopathy Respiratory exam: Present: normal lung sounds bilaterally. Absent: respiratory distress, wheezes, rales, rhonchi, stridor Cardiovascular Exam: Present: regular rate, normal rhythm, normal heart sounds. Absent: systolic murmur, diastolic murmur, rubs, gallop, clicks GI/Abdominal exam: Present: soft, normal bowel sounds. Absent: distended, tenderness, guarding, rebound, rigid Extremities exam: Present: normal inspection, full ROM, normal capillary refill. Absent: tenderness, pedal edema, joint swelling, calf tenderness Back exam: Present: normal inspection Neurological exam: Present: alert, oriented X3, CN II-XII intact Psychiatric exam: Present: normal affect, normal mood Skin exam: Present: warm, dry, intact, normal color. Absent: rash <Andrea Sheppard - Last Filed: 01/08/25 04:01> Course <Andrea Sheppard - Last Filed: 01/08/25 04:01> Vital Signs 01/02/25 01/03/25 17:45 07:29 Temperature 98.6 F 97.8 F Pulse Rate 75 51 L Respiratory 16 16 Rate Blood Pressure 166/92 147/88 O2 Sat by Pulse 99 97 Oximetry - Reevaluation(s) Reevaluation #1: 01/02/25 23:23 Medical records reviewed (Andrea Sheppard) Reevaluation #2: 01/02/25 23:23 Medically cleared for psychiatric evaluation (Andrea Sheppard) Reevaluation #3: Was pt. sent in by a medical professional or institution (, PA, BRANCH SALES MANAGER, urgent care, hospital, or [facility]...) When possible be specific @ -no Did you speak to anyone other than the patient for history (EMS, parent, family, police, friend...)? What history was obtained from this source @ -no Did you review nursing and triage notes (agree or disagree)? Why? @ -agree Are old charts reviewed (outside hosp., previous admission, EMS record, old EKG, old radiological studies, urgent care reports/EKG's, [facility] records)? Report findings @ -yes Differential Diagnosis (chest pain, altered mental status, abdominal pain women, abdominal pain men, vaginal bleeding, weakness, fever, dyspnea, syncope, headache, dizziness, GI bleed, back pain, seizure, CVA, palpatations, mental health, musculoskeletal)? @ -prior EKG interpreted by me (3pts min.). @ -no X-rays interpreted by me (1pt min.). @ -no CT interpreted by me (1pt min.). @ -no U/S interpreted by me (1pt. min.). @ -no What testing was considered but not performed or refused? (CT, X-rays, U/S, labs)? Why? @ -none What meds were considered but not given or refused? Why? @ -none Did you discuss the management of the patient with other professionals (professionals i.e. , PA, BRANCH SALES MANAGER, lab, RT, psych nurse, social media marketing specialist, materials planning manager, teacher, unclaimed property officer, outsole caser)? Give summary @ -no Was smoking cessation discussed for >3mins.? @ -no Was critical care preformed (if so, how long)? @ -no Were there social determinants of health that impacted care today? How? (Homelessness, low income, unemployed, alcoholism, drug addiction, transportation, low edu. Level, literacy, decrease access to med. care, fdc, rehab)? @ -none Was there de-escalation of care discussed even if they declined (Discuss DNR or withdrawal of care, Hospice)? DNR status @ -no What co-morbidities impacted this encounter? (DM, HTN, Smoking, COPD, CAD, Cancer, CVA, ARF, Chemo, Hep., AIDS, mental health diagnosis, sleep apnea, morbid obesity)? @ -none Was patient admitted / discharged? Hospital course, mention meds given and route, prescriptions, significant lab abnormalities, going to OR and other pertinent info. @ - 54 male seen eval by psychiatry in the ER okay we will transfer for inpatient psychiatric evaluation and treatment Transferred for inpatient psych Undiagnosed new problem with uncertain prognosis? @ -no Drug Therapy requiring intensive monitoring for toxicity (Heparin, Nitro, Insulin, Cardizem)? @ -no Were any procedures done? @ -no Diagnosis/symptom? @ -Depression and suicidal ideation Acute, or Chronic, or Acute on Chronic? @ -Acute Uncomplicated (without systemic symptoms) or Complicated (systemic symptoms)? @ -Complicated Side effects of treatment? @ -no Exacerbation, Progression, or Severe Exacerbation? @ -exacerbation Poses a threat to life or bodily function? How? (Chest pain, USA, LA, pneumonia, PE, COPD, DKA, ARF, appy, cholecystitis, CVA, Diverticulitis, Homicidal, Suicidal, threat to staff... and all critical care pts) @ -no (Andrea Sheppard) Reevaluation #4: Differential Mental Health Depression, anxiety, bipolar, psychosis, schizophrenia, borderline personality, situational depression, adjustment disorder, behavioral disorder, brain tumor, malingering, substance abuse, encephalopathy, medication reaction, dementia, hypothyroidism, degenerative neurologic disorder, lupus.... This is not meant to be all-inclusive list (Andrea Sheppard) Medical Decision Making <Shawn Vizcarra - Last Filed: 01/03/25 12:57> - Lab Data Result diagrams: 01/04/25 07:14 01/04/25 07:14 <Andrea Sheppard - Last Filed: 01/08/25 04:01> - Medical Decision Making Petition reviewed by police. Patient evaluated by EPS will be admitted to inpatient psych. Clinical certification completed. (Shawn Vizcarra) 54 male seen eval by psychiatry in the ER okay we will transfer for inpatient psychiatric evaluation and treatment (Andrea Sheppard) - Lab Data Lab Results 01/03/25 01/03/25 Range/Units 11:35 13:00 POC Glucose (mg/dL) 196 H (70-110) mg/dL POC Glu Farm Helper ID [facility] Influenza Type A (PCR) Not Detected (Not Detectd) Influenza Type B (PCR) Not Detected (Not Detectd) RSV (PCR) Not Detected (Not Detectd) SARS-CoV-2 (PCR) Not Detected (Not Detectd) Disposition <Shawn Vizcarra - Last Filed: 01/03/25 12:57> Is patient prescribed a controlled substance at d/c from ED?: No Time of Disposition: 19:00 <Andrea Sheppard - Last Filed: 01/08/25 04:01> Clinical Impression: Schizoaffective disorder, Major depressive disorder, recurrent, severe with psychotic features Disposition: TRANSFER TO PSYCH HOSP/UNIT Condition: Fair
[2025-01-03 11:36] LABS: Glucose,Whole Blood 196 mg/dL (70-110)
[2025-01-03 13:48] LABS: RSV Not Detected (Not Detectd)
[2025-01-03] MEDS ORDERED: MAGNESIUM HYDROXIDE 2,400 MG/30 ML CUP PO PRN (14:34)
[2025-01-03] MEDS ORDERED: DEXTROSE 50% SYRINGE 50 ML IVP PRN ×2 (14:37)
[2025-01-03] MEDS: NICOTINE GUM (POLACRILEX) 2 MG GUM BUCCAL PRN (15:55)
[2025-01-03] MEDS: NICOTINE 21MG/24HR PATCH TRANSDERM SCH (15:56)
[2025-01-03 17:30] LABS: Glucose,Whole Blood 191 mg/dL (70-110)
[2025-01-03] MEDS: INSULIN LISPRO (HumaLOG) 100 UNIT/ML 10 mL VL SQ SCH (17:33)
[2025-01-03] MEDS: PANTOPRAZOLE 40 MG TABLET PO SCH (17:34)
[2025-01-03] MEDS: metFORMIN 500 MG TAB PO SCH (17:35)
[2025-01-03] MEDS: ALBUTEROL INHALER 60 PUFF/8 GM INHALER (MHU) INHALATION PRN (21:30)
[2025-01-03 21:31] LABS: Glucose,Whole Blood 240 mg/dL (70-110)
[2025-01-03] MEDS: TAMSULOSIN 0.4 MG CAP.ER.24H PO SCH (21:31)
[2025-01-03] MEDS: INSULIN GLARGINE (LANTUS) 100 UNIT/ML SYR SQ SCH (21:33)
[2025-01-03] MEDS: SYMBICORT 80-4.5 MCG INHALER INHALATION SCH (21:50)
[2025-01-04 07:31] LABS: Basophils # (A) 0.01 10*3/uL (0.00-0.10); Basophils % (A) 0.2 %; Eosinophils # (A) 0.23 10*3/uL (0.04-0.35); Eosinophils % (A) 4.7 %; HCT 41.4 % (39.6-50.0); HGB 14.6 g/dL (13.0-17.0); Lymphocytes # (A) 1.15 10*3/uL (0.90-5.00); Lymphocytes % (A) 23.5 %; MCH 29.9 pg (27.0-32.0); MCHC 35.3 g/dL (32.0-37.0); MCV 84.8 fL (80.0-97.0); Monocytes # (A) 0.42 10*3/uL (0.20-1.00); Monocytes % (A) 8.6 %; Neutrophils # (A) 3.02 10*3/uL (1.80-7.70); Neutrophils % (A) 61.8 %; Platelet Count 181 10*3/uL (140-440); RBC 4.88 10*6/uL (4.40-5.60); RDW 13.7 % (11.5-14.5); WBC 4.89 10*3/uL (4.50-10.00)
[2025-01-04 07:50] LABS: ALT 39 U/L (4-49); AST 23 U/L (17-59); African American GFR (CKD) >90 (>60 ml/min/1.73 sqM); Albumin 3.7 g/dL (3.5-5.0); Alkaline Phosphatase 72 U/L (38-126); Anion Gap 6 mmol/L; Blood Urea Nitrogen 14 mg/dL (9-20); Calcium 9.3 mg/dL (8.4-10.2); Carbon Dioxide 25 mmol/L (22-30); Chloride 109 mmol/L (98-107); Glucose 225 mg/dL (74-99); Non-African American GFR(CKD) >90 (>60 ml/min/1.73 sqM); Potassium 4.1 mmol/L (3.5-5.1); Sodium 140 mmol/L (137-145); Total Protein 5.7 g/dL (6.3-8.2)
[2025-01-04 07:54] LABS: Glucose,Whole Blood 217 mg/dL (70-110)
[2025-01-04] MEDS: MONTELUKAST 10 MG TAB PO SCH (08:14)
[2025-01-04] MEDS: CITALOPRAM HYDROBROMIDE 20 MG TAB PO SCH (08:14)
[2025-01-04] MEDS: ASPIRIN 81 MG PO SCH (08:14)
[2025-01-04] MEDS: glipiZIDE 5 MG TAB PO SCH (08:14)
[2025-01-04] MEDS: LORATADINE 10 MG TAB PO SCH (08:15)
[2025-01-04 10:30] LABS: Cholesterol 187.00 mg/dL (0.00-200.00); HDL Cholesterol 43.30 mg/dL (40.00-60.00); LDL Cholesterol,Calculated 119.1 mg/dL (0.0-131.0); Triglycerides 123.00 mg/dL (0.00-149.00); VLDL Calculation 24.60 mg/dL (5.00-40.00)
[2025-01-04] MEDS: OLANZapine 5 MG TAB PO PRN (10:51)
[2025-01-04] MEDS: IBUPROFEN 600 MG TAB PO PRN (10:51)
--- NOTE | 2025-01-04 11:56 | P.HP ---
Psychiatric H&P - . H&P Date: 01/04/25 History & Physical: Allergies Allergy/AdvReac Type Severity Reaction Status Date / Time dicyclomine HCl [From Bentyl] Allergy Unknown Dyspnea Verified 01/03/25 14:17 latex Allergy Unknown Rash/Hives Verified 01/03/25 14:17 Benzoate Analogues Allergy Unknown Verified 01/03/25 14:17 benzonatate Allergy Unknown Verified 01/03/25 14:17 nitrofurantoin Allergy Nausea Verified 01/03/25 14:17 [From Macrobid] Penicillins Allergy "[place] Verified 01/03/25 14:17 funny" adhesive AdvReac Unknown Itching Verified 01/03/25 14:17 ciprofloxacin AdvReac Unknown Nausea Verified 01/03/25 14:17 Macrolide Antibiotics AdvReac Unknown Nausea Verified 01/03/25 14:17 sulfamethoxazole AdvReac Unknown Unknown Verified 01/03/25 14:17 [From Bactrim] trimethoprim [From Bactrim] AdvReac Unknown Unknown Verified 01/03/25 14:17 diphenhydramine AdvReac Confusion Verified 01/03/25 14:17 [From Benadryl] Vital Signs Temp 97.8 F 01/04/25 08:13 Pulse 85 01/04/25 08:13 Resp 18 01/04/25 08:13 BP 97/64 01/04/25 08:13 Pulse Ox 96 01/04/25 08:13 FiO2 Intake & Output 01/03/25 01/04/25 01/04/25 18:59 06:59 18:59 Weight 80.195 kg Laboratory Last Values WBC 4.89 10*3/uL (4.50-10.00) 01/04/25 07:14 RBC 4.88 10*6/uL (4.40-5.60) 01/04/25 07:14 Hgb 14.6 g/dL (13.0-17.0) 01/04/25 07:14 Hct 41.4 % (39.6-50.0) 01/04/25 07:14 MCV 84.8 fL (80.0-97.0) 01/04/25 07:14 MCH 29.9 pg (27.0-32.0) 01/04/25 07:14 MCHC 35.3 g/dL (32.0-37.0) 01/04/25 07:14 Plt Count 181 10*3/uL (140-440) 01/04/25 07:14 MPV 9.4 fL (9.5-12.2) L 01/04/25 07:14 Immature Gran % (Auto) 1.2 % 01/04/25 07:14 Neutrophils % 61.8 % 01/04/25 07:14 Lymphocytes % 23.5 % 01/04/25 07:14 Monocytes % 8.6 % 01/04/25 07:14 Eosinophils % 4.7 % 01/04/25 07:14 Basophils % 0.2 % 01/04/25 07:14 Immature Gran # 0.06 10*3/uL (0.00-0.04) H 01/04/25 07:14 Neutrophils # 3.02 10*3/uL (1.80-7.70) 01/04/25 07:14 Lymphocytes # 1.15 10*3/uL (0.90-5.00) 01/04/25 07:14 Monocytes # 0.42 10*3/uL (0.20-1.00) 01/04/25 07:14 Eosinophils # 0.23 10*3/uL (0.04-0.35) 01/04/25 07:14 Basophils # 0.01 10*3/uL (0.00-0.10) 01/04/25 07:14 Sodium 140 mmol/L (137-145) 01/04/25 07:14 Potassium 4.1 mmol/L (3.5-5.1) 01/04/25 07:14 Chloride 109 mmol/L (98-107) H 01/04/25 07:14 Carbon Dioxide 25 mmol/L (22-30) 01/04/25 07:14 Anion Gap 6 mmol/L 01/04/25 07:14 BUN 14 mg/dL (9-20) 01/04/25 07:14 Creatinine 0.75 mg/dL (0.66-1.25) 01/04/25 07:14 Est GFR (CKD-EPI)AfAm >90 (>60 ml/min/1.73 sqM) 01/04/25 07:14 Est GFR (CKD-EPI)NonAf >90 (>60 ml/min/1.73 sqM) 01/04/25 07:14 Glucose 225 mg/dL (74-99) H 01/04/25 07:14 POC Glucose (mg/dL) 217 mg/dL (70-110) H 01/04/25 07:53 POC Glu [employer] Electrician ID [facility] [place] 01/04/25 07:[address] Glu mg/dL 203 mg/dL 01/04/25 07:14 Hemoglobin A1c 8.7 % (<=6.0) H 01/04/25 07:14 Calcium 9.3 mg/dL (8.4-10.2) 01/04/25 07:14 Total Bilirubin 0.5 mg/dL (0.2-1.3) 01/04/25 07:14 AST 23 U/L (17-59) 01/04/25 07:14 ALT 39 U/L (4-49) 01/04/25 07:14 Alkaline Phosphatase 72 U/L (38-126) 01/04/25 07:14 Total Protein 5.7 g/dL (6.3-8.2) L 01/04/25 07:14 Albumin 3.7 g/dL (3.5-5.0) 01/04/25 07:14 Triglycerides 123.00 mg/dL (0.00-149.00) 01/04/25 07:14 Cholesterol 187.00 mg/dL (0.00-200.00) 01/04/25 07:14 LDL Cholesterol, Calc 119.1 mg/dL (0.0-131.0) 01/04/25 07:14 VLDL Cholesterol, Calc 24.60 mg/dL (5.00-40.00) 01/04/25 07:14 HDL Cholesterol 43.30 mg/dL (40.00-60.00) 01/04/25 07:14 Cholesterol/HDL Ratio 4.32 Ratio 01/04/25 07:14 TSH 0.614 mIU/L (0.465-4.680) 01/04/25 07:14 Influenza Type A (PCR) Not Detected (Not Detectd) 01/03/25 13:00 Influenza Type B (PCR) Not Detected (Not Detectd) 01/03/25 13:00 RSV (PCR) Not Detected (Not Detectd) 01/03/25 13:00 SARS-CoV-2 (PCR) Not Detected (Not Detectd) 01/03/25 13:00 01/04/25 11:44 IDENTIFYING DATA: Patient is a single, unemployed, 54-year-old male with a guardian who is presenting with suicidal ideation and depression to the ER. Patient has public guardian's HPI: Patient has a history of schizoaffective disorder generalized anxiety disorder and frequent ER visits and mental health admissions in the past. Patient follows up at [facility] with his psychiatrist and receives monthly Abilify Maintenna injections. Patient was admitted yesterday as he was petitioned by police and endorsing depression and suicidal thoughts and hearing voices. Patient was seen today agreeable to speak to marketing copywriter. He claims that the house he is living and is not very "good" and claims that there are a lot of bad people to live there. He states that his roommate is "always drunk" and starting fights with other people including himself. Claims that he has been feeling depressed suicidal plan to overdose on medications. Claims that he called the police to bring him into the hospital for help. He claims that he wants a different living arrangement at this time. He is endorsing depression and anxiety, claims that his sleep has been on and off appetite has been fair. At this time he is denying any homicidal ideations intent or plan. Patient is still admitting to suicidal thoughts no specific plan today. Denying any auditory visual hallucinations. Patient claims that he missed his long-acting injection a couple of days ago with Abilify Maintenna. Denies any drug use. PSYCH HX: Patient has a history of schizoaffective disorder, depressed type, alcohol use disorder, in remission. Patient is currently on abilify Maintena, Celexa, and Seroquel. Patient been on several different medications in the past. He reports >50 inpatient hospitalizations, most recent here was September 2024. He follows with [facility] with his psychiatrist. He reports one prior suicide attempt via OD 3-4 years ago. PMH: Past Medical History: Asthma, Chest Pain / Angina, COPD, CVA/TIA, Diabetes Mellitus, GERD/Reflux, Hearing Disorder / Deafness, Hyperlipidemia, Hypertension, Liver Disease, Osteoarthritis (OA), Pneumonia, Seizure Disorder, Sleep Apnea/CPAP/BIPAP Additional Past Medical History / Comment(s): states CVA at 35 yrs old, no weakness @ this time. states seizure at 35 yrs old., DDD- back & neck pain., carpal tunnel syndrome. Has [employer] public guardian. History of Any Multi-Drug Resistant Organisms: Other MDRO Past Surgical History: Heart Catheterization, Orthopedic Surgery Additional Past Surgical History / Comment(s): Cysts removed, left thumb surgery, colonoscopy 08/24/2019. Skin tags removed from both eyes. Past Anesthesia/Blood Transfusion Reactions: Motion Sickness, Postoperative Nausea & Vomiting (PONV) Past Psychological History: Anxiety, Bipolar, Depression Smoking Status: Current every day smoker Past Alcohol Use History: Abuse Past Drug Use History: None Reported SUBSTANCE HX: He smokes 2-3 cigs daily, denying any cannabis or other illicit drugs. SOCIAL/LEGAL HX: Patient is currently staying at [facility] home, living with one roommate. He has a public guardian. He does not have any children, never and completed high school up to 10th grade. He is on SSD. FAM PSYCH HX: Denies MENTAL STATUS EXAM: General Appearance: Patient appears to be using a wheelchair, hospital gown, stated age is alert, directable, and attempts to cooperate. Patient appears to have fair hygiene and grooming. Behavior: Patient is seated without any agitated behavior. Attempts to cooperate, vague and guarded Speech: Patient's speech is fluent and nonpressured. Mood/Affect: Patient reports their mood is depressed and anxious, affect is congruent and constricted. Suicidality/Homicidality: Patient denies having any homicidal ideation intent or plan. Admitting to having suicidal ideations today, no plan or intent Perceptions: Patient denies any visual hallucinations he is denying any current auditory hallucinations Though content/process: There is no evidence of any delusional thought content and thought process is linear. Rationalizing Memory and concentration: AOX3, grossly intact for the purposes of this session. Can spell "WORLD" backwards Judgment and insight: poor/limited chronically STRENGTHS/WEAKNESSES: strength is that patient is resilient and has a public guardian. Weakness is that patient has poor judgment/insight and is impulsive INTELLECT: below average IMPRESSIONS: adjustment disorder Schizoaffective disorder, depressed type Generalized anxiety disorder Nicotine dependence PLAN: -Patient is admitted under voluntary status to MHU for stabilization of psychiatric symptoms and safety. Patient has signed adult voluntary form and medication consent and is placed in patient's chart. -Medications : Celexa 40 mg mg daily for depression/anxiety, we will give miss dose of Abilify Maintena 400 mg IM today, regularly dosed q. 28 days next dose will be given at [facility] on 02/01 for psychosis/mood stabilization, trazodone 50 mg at bedtime for insomnia. Seroquel 200 mg nightly for mood stabilization/insomnia -Zyprexa PRN for agitation/aggression -Patient was informed of the risks, benefits and side effects of the medication and patient verbally consented to taking the medications. Patient signed med consent form and was placed in chart. did not want any information on medications today -Internal Medicine consult to perform medical evaluation and physical. -NRT - nicotine patch - on board for discharge planning. Encourage patient to participate in groups to work on coping skills. Patient will need a better diversion plan as patient comes to the ER for similar complaints, will need to include [facility] and his g brittanieians in this plan. 01/04/25 11:51
[2025-01-04] MEDS: ARIPiprazole IM SYRINGE 400 MG (NO CHARGE) PHARMACY STOCK IM SCH (12:21)
[2025-01-04 12:48] LABS: Glucose,Whole Blood 215 mg/dL (70-110)
[2025-01-04 13:49] LABS: Bilirubin,Urine Negative (Negative); Blood,Urine Negative (Negative); Color,Urine Yellow; Glucose,Urine (UA) 4+ (Negative); Ketones,Urine Negative (Negative); Leukocyte Esterase,Urine Negative (Negative); Nitrite,Urine Negative (Negative); PH, Urine 6.0 (5.0-8.0); Protein,Urine Negative (Negative); Specific Gravity,Urine 1.023 (1.001-1.035); Urobilinogen,Urine 2.0 mg/dL (<2.0)
[2025-01-04 17:22] LABS: Glucose,Whole Blood 199 mg/dL (70-110)
[2025-01-04 19:45] LABS: Glucose,Whole Blood 253 mg/dL (70-110)
[2025-01-04] MEDS: ACETAMINOPHEN TAB 325 MG TAB PO PRN (21:05)
[2025-01-04 22:16] LABS: Barbiturate Screen,Urine Not Detected (NotDetected); Benzodiazepines Screen,Urine Detected (NotDetected); Opiate Screen,Urine Not Detected (NotDetected); Oxycodone Screen, Urine Not Detected (NotDetected); Phencyclidine Screen,Urine Not Detected (NotDetected); Tricyclic Antidepressant,Urine Detected (NotDetected); Urn Cannabinoid Scrn Not Detected (NotDetected)
[2025-01-05 07:51] LABS: Glucose,Whole Blood 209 mg/dL (70-110)
--- NOTE | 2025-01-05 11:36 | P.PN ---
Progress Note - Text Progress Note Date: 01/05/25 Interval History: Patient was seen today for psychiatric follow up. Patient was wandering the h allways near the nursing desk. He claims that he is doing a bit better today with regard to his mood and anxiety. States that he still does not want to go back to his previous living situation, continues to ask about rehab. He states that he is not feeling suicidal today feels more optimistic. He denied any issues last night taking his medications slept fairly. Denies any issues with appetite at this time. Denying any suicidal or homicidal ideations intent upon denies any auditory or visual hallucinations. MENTAL STATUS EXAM: General Appearance: Patient appears to be using a wheelchair, hospital gown, stated age is alert, directable, and attempts to cooperate. Patient appears to have fair hygiene and grooming. Behavior: Patient is seated without any agitated behavior. Attempts to cooperate, vague, improving mildly Speech: Patient's speech is fluent and nonpressured. Mood/Affect: Patient reports their mood is improving mildly, affect is congruent and constricted. Suicidality/Homicidality: Patient denies having any homicidal ideation intent or plan. Denies any suicidal ideations today, no plan or intent Perceptions: Patient denies any visual hallucinations he is denying any current auditory hallucinations Though content/process: There is no evidence of any delusional thought content and thought process is linear. Memory and concentration: AOX3, grossly intact for the purposes of this session Judgment and insight: poor/limited chronically, improving mildly IMPRESSIONS: adjustment disorder Schizoaffective disorder, depressed type Generalized anxiety disorder Nicotine dependence PLAN: -Patient is admitted under voluntary status to MHU for stabilization of psychiatric symptoms and safety. Patient has signed adult voluntary form and medication consent and is placed in patient's chart. -Medications : Celexa 40 mg mg daily for depression/anxiety, was given Abilifforest Maintena 400 mg IM on 01/04, next dose will be due q. [address] [facility] on 02/01 for psychosis/mood stabilization, trazodone 50 mg at bedtime for insomnia. Seroquel 200 mg nightly for mood stabilization/insomnia -Zyprexa PRN for agitation/aggression -NRT - nicotine patch - on board for discharge planning. Encourage patient to participate in groups to work on coping skills. Patient will need a better diversion plan as patient comes to the ER for similar complaints, next step program will be working on this prior to discharge due to patient's frequent hospitalizations. Will include [facility] and guardian on discharge planning. Likely discharge Wednesday if patient is improving.
[2025-01-05 12:33] LABS: Glucose,Whole Blood 90 mg/dL (70-110)
[2025-01-05 17:32] LABS: Glucose,Whole Blood 282 mg/dL (70-110)
[2025-01-05 20:11] LABS: Glucose,Whole Blood 222 mg/dL (70-110)
[2025-01-06 07:35] LABS: Glucose,Whole Blood 218 mg/dL (70-110)
[2025-01-06 11:50] LABS: Glucose,Whole Blood 76 mg/dL (70-110)
[2025-01-06 12:29] LABS: Glucose,Whole Blood 88 mg/dL (70-110)
[2025-01-06 17:40] LABS: Glucose,Whole Blood 113 mg/dL (70-110)
[2025-01-06 20:18] LABS: Glucose,Whole Blood 235 mg/dL (70-110)
[2025-01-06 21:36] LABS: Glucose,Whole Blood 189 mg/dL (70-110)
[2025-01-06] MEDS: MAG HYDROX/AL HYDROX/SIMETH 355 ML BOTTLE PO PRN (22:34)
[2025-01-07 07:40] LABS: Glucose,Whole Blood 215 mg/dL (70-110)
[2025-01-07 11:43] LABS: Glucose,Whole Blood 77 mg/dL (70-110)
[2025-01-07 12:41] LABS: Glucose,Whole Blood 100 mg/dL (70-110)
[2025-01-07] MEDS: NAPROXEN 250 MG TAB PO PRN (14:10)
[2025-01-07 17:22] LABS: Glucose,Whole Blood 87 mg/dL (70-110)
--- NOTE | 2025-01-07 18:01 | P.MDCNMH ---
History of Present Illness H&P Date: 01/07/25 Chief Complaint: Medical evaluation 54-year-old man with medical history of diabetes type 2, BPH, COPD, TIA, hypertension, hyperlipidemia, seizure disorder, FRANCY and psychiatric history of schizoaffective disorder, depression, alcohol use disorder presented for mental health evaluation. Medicine was consulted for medical management. Patient notes multiple generalized complaints, but he continues to feel weak with little appetite and has remained on a clear liquid diet due to appetite. Denies abdominal pain. Reports that he feels dizzy upon standing. Today, patient is afebrile, 120/76, heart rate 72, 98% on room air. Lab work on admission showed normal CBC, unremarkable basic metabolic panel, normal lipid profile, TSH of 0.61. Urinalysis was positive for tricyclic antidepressants and benzodiazepines. Influenza A, B, RSV, COVID were negative. Sugars have been controlled. No imaging to review. Gen: In NAD, non-toxic HEENT: normocephalic, atraumatic, hearing acuity is intant, mucous membranes moist CVS: perfusing all extremities well, no pitting edema, Respiratory: symmetric chest expansion, no accessory muscle use, GI: soft, NTTP, ND, : no suprapubic tenderness, no CVA tenderness MSK/Derm: no rashes, cyanosis Neuro: CN II-XII intact, no motor weakness, Assessment/plan: Loss of appetite Diabetes type 2 - Monitor sugars closely - Continue Lantus 20 units, sliding scale insulin, metformin, glipizide - Advance diet as tolerated - Add Ensure 3 times daily for supplemental nutrition Hyperlipidemia, - Recent lipid panel appears to be within normal limits, but will add a moderate intensity statin given diabetes BPH COPD without exacerbation Hypertension History of TIA Seizure disorder Obstructive sleep apnea -Home medications reviewed and reconciled Patient is full code Thank you for this consult, please reach out with any further questions. Past Medical History Past Medical History: Asthma, Chest Pain / Angina, COPD, CVA/TIA, Diabetes Mellitus, GERD/Reflux, Hearing Disorder / Deafness, Hyperlipidemia, Hypertension, Liver Disease, Osteoarthritis (OA), Pneumonia, Seizure Disorder, Sleep Apnea/CPAP/BIPAP Additional Past Medical History / Comment(s): states CVA at 35 yrs old, no weakness @ this time. states seizure at 35 yrs old., DDD- back & neck pain., ca rpal tunnel syndrome. Has [employer] public guardian. History of Any Multi-Drug Resistant Organisms: None Reported, Other MDRO Past Surgical History: Heart Catheterization, Orthopedic Surgery Additional Past Surgical History / Comment(s): Cysts removed, left thumb surgery, colonoscopy 08/24/2019. Skin tags removed from both eyes. Past Anesthesia/Blood Transfusion Reactions: Motion Sickness, Postoperative Nausea & Vomiting (PONV) Past Psychological History: Anxiety, Bipolar, Depression Additional Psychological History / Comment(s): Pt has a public legal guardian, lives in a BOARDING HOUSE. Goes to [employer]. Smoking Status: Current every day smoker Past Alcohol Use History: Abuse Additional Past Alcohol Use History / Comment(s): past abuse. Past Drug Use History: Marijuana - Past Family History Brother(s) Family Medical History: Diabetes Mellitus Additional Family Medical History / Comment(s): Patient has 2 brothers. One from complications from diabetes. The second is alive with diabetes. Sister(s) Family Medical History: Cancer Additional Family Medical History / Comment(s): Patient has one sister with breast cancer. Patient does not have any children. Father Family Medical History: Cancer Additional Family Medical History / Comment(s): Father in his 40s or 50s from colon cancer. Mother Family Medical History: Cancer Additional Family Medical History / Comment(s): Mother at age 68 from lung cancer. Medications and Allergies Home Medications Medication Instructions Recorded Confirmed Type Aspirin EC [Ecotrin Low Dose] 81 mg PO DAILY 30 Days #30 tab 07/13/24 01/03/25 Rx Budesonide/Formoterol Fumarate 2 puff INHALATION RT-BID 30 Days 08/15/24 01/03/25 Rx [Symbicort 80-4.5 Mcg Inhaler] #1 each Insulin Lispro [humaLOG Kwikpen] See Protocol SQ AC-TID 08/23/24 01/03/25 History Insulin Glargine,Hum.rec.anlog 20 unit SQ HS 09/30/24 01/03/25 History [Insulin Glargine Solostar] ARIPiprazole IM SYRINGE [Abilify 400 mg IM Q28D 01/03/25 01/03/25 History Maintena Syringe] Albuterol Inhaler [Ventolin Hfa 2 puff INHALATION RT-Q6H PRN 01/03/25 01/03/25 History Inhaler] Cetirizine HCl [Zyrtec] 10 mg PO DAILY 01/03/25 01/03/25 History Citalopram Hydrobromide [CeleXA] 40 mg PO DAILY 01/03/25 01/03/25 History Montelukast [Singulair] 10 mg PO DAILY 01/03/25 01/03/25 History Naproxen [EC-Naprosyn] 500 mg PO BID PRN 01/03/25 01/03/25 History Omeprazole [PriLOSEC] 40 mg PO BID 01/03/25 01/03/25 History QUEtiapine [SEROquel] 200 mg PO HS 01/03/25 01/03/25 History Tamsulosin [Flomax] 0.4 mg PO BID 01/03/25 01/03/25 History glipiZIDE 2.5 mg PO DAILY 01/03/25 01/03/25 History metFORMIN HCL ER [Glucophage XR] 500 mg PO BID 01/03/25 01/03/25 History Allergies Allergy/AdvReac Type Severity Reaction Status Date / Time dicyclomine HCl [From Bentyl] Allergy Unknown Dyspnea Verified 01/03/25 14:17 latex Allergy Unknown Rash/Hives Verified 01/03/25 14:17 Benzoate Analogues Allergy Unknown Verified 01/03/25 14:17 benzonatate Allergy Unknown Verified 01/03/25 14:17 nitrofurantoin Allergy Nausea Verified 01/03/25 14:17 [From Macrobid] Penicillins Allergy "[place] Verified 01/03/25 14:17 funny" adhesive AdvReac Unknown Itching Verified 01/03/25 14:17 ciprofloxacin AdvReac Unknown Nausea Verified 01/03/25 14:17 Macrolide Antibiotics AdvReac Unknown Nausea Verified 01/03/25 14:17 sulfamethoxazole AdvReac Unknown Unknown Verified 01/03/25 14:17 [From Bactrim] trimethoprim [From Bactrim] AdvReac Unknown Unknown Verified 01/03/25 14:17 diphenhydramine AdvReac Confusion Verified 01/03/25 14:17 [From Benadryl] Physical Exam Osteopathic Statement: *. No significant issues noted on an osteopathic structural exam other than those noted in the History and Physical/Consult. Vitals: Vital Signs Temp Pulse Resp BP Pulse Ox 01/07/25 15:30 68 17 98 01/07/25 12:49 98.6 F 72 16 120/76 98 01/06/25 21:00 98.7 F 68 16 108/67 99 Intake and Output 01/07/25 01/07/25 01/07/25 06:59 14:59 22:59 Other: Weight 81.8 kg Cranial Nerve Examination - Cranial Nerves Cranial Nerve II- Optic: Intact Cranial Nerve III- Oculomotor: Intact Cranial Nerve IV- Trochlear: Intact Cranial Nerve V- Trigeminal: Intact Cranial Nerve - Abducens: Intact Cranial Nerve VII- Facial: Intact Cranial Nerve VIII- Auditory: Intact Cranial Nerve IX- Glossopharyngeal: Intact Cranial Nerve X- Vagus: Intact Cranial Nerve XI- Accessory: Intact Cranial Nerve XII- Hypoglossal: Intact Results CBC & Chem 7: 01/04/25 07:14 01/04/25 07:14 Labs: Abnormal Lab Results - Last 24 Hours (Table) 01/06/25 01/06/25 01/07/25 Range/Units 20:15 21:35 07:39 POC Glucose (mg/dL) 235 H 189 H 215 H (70-110) mg/dL
[2025-01-07 19:21] LABS: Glucose,Whole Blood 219 mg/dL (70-110)
[2025-01-07 20:36] LABS: Glucose,Whole Blood 144 mg/dL (70-110)
--- NOTE | 2025-01-07 21:52 | P.PN ---
Progress Note - Text Progress Note Date: 01/06/25 Interval history: Patient was seen today sitting in his wheelchair in the hallway. He appears chirag atically preoccupied, has multiple vague physical complaints that appear to be chronic in nature. He claims he is "seeing colors", has a headache. He claims his mood is otherwise "alright". Denying any suicidal or homicidal ideations intent. Denies any auditory or visual hallucinations. MENTAL STATUS EXAM: General Appearance: Patient sitting in a wheelchair, appears older than stated age, fair hygiene and grooming. Behavior: Patient is seated without any agitated behavior. Attempts to cooperate, vague. Alert, awake. Speech: Patient's speech is fluent and nonpressured. Mood/Affect: Patient reports their mood is "alright", affect is congruent and constricted. Suicidality/Homicidality: Patient denies having any homicidal ideation intent or plan. Denies any suicidal ideations today, no plan or intent Perceptions: Patient denies any visual hallucinations he is denying any current auditory hallucinations Though content/process: There is no evidence of any delusional thought content and thought process is linear. Memory and concentration: AOX3, grossly intact for the purposes of this session Judgment and insight: poor/limited chronically, improving mildly Continue with current diagnosis. Patient continues to meet criteria for inpatient psychiatric admission for symptom stabilization and safety.Patient will be maintained on current psychotropic medication regimen. Monitor for m edication compliance and for any psychotropic medication side effects. Will continue to monitor ongoing response to treatment. Encouraged participation in milieu.
--- NOTE | 2025-01-07 21:54 | P.PN ---
Progress Note - Text Progress Note Date: 01/07/25 Interval history: Patient was seen today sitting in his wheelchair in the hallway again today. He continues to be somatically preoccupied, has multiple vague physical complaints that appear to be chronic in nature. He is holding a clean emesis basin but does not appear to have vomited. He claims his mood is otherwise "alright". Denying any suicidal or homicidal ideations intent. Denies any auditory or visual hallucinations. MENTAL STATUS EXAM: General Appearance: Patient sitting in a wheelchair, appears older than stated age, fair hygiene and grooming. Behavior: Patient is seated without any agitated behavior. Attempts to cooperate, vague. Alert, awake. Speech: Patient's speech is fluent and nonpressured. Mood/Affect: Patient reports their mood is "alright", affect is congruent and constricted. Suicidality/Homicidality: Patient denies having any homicidal ideation intent or plan. Denies any suicidal ideations today, no plan or intent Perceptions: Patient denies any visual hallucinations he is denying any current auditory hallucinations Though content/process: There is no evidence of any delusional thought content and thought process is linear. Memory and concentration: AOX3, grossly intact for the purposes of this session Judgment and insight: poor/limited chronically, improving mildly Continue with current diagnosis. Patient continues to meet criteria for inpatient psychiatric admission for symptom stabilization and safety.Patient will be maintained on current psychotropic medication regimen. Monitor for medication compliance and for any psychotropic medication side effects. Will continue to monitor ongoing response to treatment. Encouraged participation in milieu.
[2025-01-07] MEDS: ATORVASTATIN 40 MG TAB PO SCH (21:56)
[2025-01-08 07:45] LABS: Glucose,Whole Blood 112 mg/dL (70-110)
--- NOTE | 2025-01-08 11:02 | P.DS ---
Providers Date of admission: 01/03/25 14:27 Expected date of discharge: 01/08/25 Attending physician: Wisam Espinal MD Consults: 01/07/25 15:46 Consult Physician Routine Consulting Provider: [facility] Consult Reason/Comments: H & P w/medical mgmt Do you want consulting provider notified?: Yes Primary care physician: Ramya Saul - Discharge Diagnosis(es) (1) Adjustment disorder Current Visit: Yes Status: Acute Priority: High (2) Schizoaffective disorder, depressive type Current Visit: Yes Status: Acute Priority: Medium (3) Generalized anxiety disorder Current Visit: Yes Status: Acute Priority: Medium (4) Nicotine dependence Current Visit: Yes Status: Acute Priority: Low Hospital Course: Admission HPI: Admission note was completed by content writer "Patient is a single, unemployed, 54-year-old male with a guardian who is presenting with suicidal ideation and depression to the ER. Patient has public guardian's. Patient has a history of schizoaffective disorder generalized anxiety disorder and frequent ER visits and mental health admissions in the past. Patient follows up at [facility] with his psychiatrist and receives monthly Abilify Maintenna injections. Patient was admitted yesterday as he was petitioned by police and endorsing depression and suicidal thoughts and hearing voices. Patient was seen today agreeable to speak to content writer. He claims that the house he is living and is not very "good" and claims that there are a lot of bad people to live there. He states that his roommate is "always drunk" and starting fights with other people including himself. Claims that he has been feeling depressed suicidal plan to overdose on medications. Claims that he called the police to bring him into the hospital for help. He claims that he wants a different living arrangement at this time. He is endorsing depression and anxiety, claims that his sleep has been on and off appetite has been fair. At this time he is denying any homicidal ideations intent or plan. Patient is still admitting to suicidal thoughts no specific plan today. Denying any auditory visual hallucinations. Patient claims that he missed his long-acting injection a couple of days ago with Abilify Maintenna. Denies any drug use." Hospital course: Upon admission to the unit patient was directable and agreeable to commence treatment and signed adult voluntary form. Patient was initially depressed and anxious however with time and treatment patient got along well with other patients on the unit and followed unit protocol. Patient was compliant with the medications and denied any side effects throughout hospital course. Patient was started on his home dose of Celexa 40 mg daily for depression/anxiety, he was given his dose of Abilify Maintena 400 mg IM on 01/04, next dose will be due in q. 28 days at [facility] on 02/01. Trazodone 100 mg nightly as needed for insomnia, Seroquel 200 mg nightly for mood stabilization/insomnia. Patient spoke of his stressors however did not participate much in group/activity therapy and mainly kept to themselves during hospitalization. Patient was also seen by medical team for history and physical exam. Throughout the course of the hospitalization patient gradually improved with regards to mood, anxiety, sleep and returned back to their baseline level of functioning. On the day of discharge patient denied any suicidal or homicidal ideations intent or plan denied any auditory or visual hallucinations. Patient endorsed wanting to live for his future and his health. The patient denied any access to guns or weapons. Patient denied any paranoia and did not endorse any delusions. Patient does not have a significant history of substance abuse and was counseled on abstaining from all substances including alcohol and marijuana. Patient was also counseled on the medications and need for regular compliance and was encouraged to follow-up with their outpatient appointment for mental health and also for primary care. Next step program through [facility] will also be following patient's condition closely. Mental status exam: General Appearance: Patient appears to be using a walker, stated age is alert, pleasant, and cooperative. Patient is in no acute distress and has improved hygiene and grooming Behavior: Patient is calmly seated without any agitated behavior. Speech: Patient's speech is fluent and nonpressured. Mood/Affect: Patient reports their mood is "better", affect is congruent and euthymic. Suicidality/Homicidality: Patient denies having any suicidal or homicidal ideation intent or plan. Perceptions: Patient denies any auditory or visual hallucinations. Though content/process: There is no evidence of any delusional thought content and thought process is linear and goal-directed. Memory and concentration: AOX3, grossly intact for the purposes of this session. Can spell "WORLD" backwards correctly. Judgment and insight: Chronically poor, however has improved with guarded prognosis Impression: Adjustment disorder schizoaffective disorder depressive type Generalized anxiety disorder Nicotine dependence Plan: -Continue with discharge today as patient has improved and stabilized psyc hiatrically and is not currently an imminent threat to themself and/or others. Patient will remain at chronically elevated risk for harm to self and/or others due to their impulsivity . -Continue medications: given his dose of Abilifforest Maintena 400 mg IM on 01/04, next dose will be due in q. 28 days at [facility] on 02/01, trazodone 100 mg nightly as needed for insomnia, Seroquel 200 mg nightly for mood stabilization/insomnia, Celexa 40 mg daily for depression/anxiety -Patient was counseled on the need for medication compliance and appropriate follow-up at mental health and also primary care for medical issues. Patient verbalized understanding and agreed. -Social work to help coordinate patients discharge today. also to ensure safe home environment that guns/weapons are either removed from the home or locked away. Social work also to arrange for patients follow up appointments with [facility] and next step program for psychiatric care along with follow up with primary care provider. -Patient counseled on abstaining from recreational drugs and marijuana and alcohol. Was informed/educated on the adverse effects on their physical and mental health. Patient verbally agreed and understood. -Patient was instructed to return to the hospital or seek immediate medical care if their psychiatric or medical symptoms do worsen or reoccur. Allergies Allergy/AdvReac Type Severity Reaction Status Date / Time dicyclomine HCl [From Bentyl] Allergy Unknown Dyspnea Verified 01/03/25 14:17 latex Allergy Unknown Rash/Hives Verified 01/03/25 14:17 Benzoate Analogues Allergy Unknown Verified 01/03/25 14:17 benzonatate Allergy Unknown Verified 01/03/25 14:17 nitrofurantoin Allergy Nausea Verified 01/03/25 14:17 [From Macrobid] Penicillins Allergy "[place] Verified 01/03/25 14:17 funny" adhesive AdvReac Unknown Itching Verified 01/03/25 14:17 ciprofloxacin AdvReac Unknown Nausea Verified 01/03/25 14:17 Macrolide Antibiotics AdvReac Unknown Nausea Verified 01/03/25 14:17 sulfamethoxazole AdvReac Unknown Unknown Verified 01/03/25 14:17 [From Bactrim] trimethoprim [From Bactrim] AdvReac Unknown Unknown Verified 01/03/25 14:17 diphenhydramine AdvReac Confusion Verified 01/03/25 14:17 [From Benadryl] Laboratory Results WBC 4.89 10*3/uL (4.50-10.00) 01/04/25 07:14 RBC 4.88 10*6/uL (4.40-5.60) 01/04/25 07:14 Hgb 14.6 g/dL (13.0-17.0) 01/04/25 07:14 Hct 41.4 % (39.6-50.0) 01/04/25 07:14 MCV 84.8 fL (80.0-97.0) 01/04/25 07:14 MCH 29.9 pg (27.0-32.0) 01/04/25 07:14 MCHC 35.3 g/dL (32.0-37.0) 01/04/25 07:14 Plt Count 181 10*3/uL (140-440) 01/04/25 07:14 MPV 9.4 fL (9.5-12.2) L 01/04/25 07:14 Immature Gran % (Auto) 1.2 % 01/04/25 07:14 Neutrophils % 61.8 % 01/04/25 07:14 Lymphocytes % 23.5 % 01/04/25 07:14 Monocytes % 8.6 % 01/04/25 07:14 Eosinophils % 4.7 % 01/04/25 07:14 Basophils % 0.2 % 01/04/25 07:14 Immature Gran # 0.06 10*3/uL (0.00-0.04) H 01/04/25 07:14 Neutrophils # 3.02 10*3/uL (1.80-7.70) 01/04/25 07:14 Lymphocytes # 1.15 10*3/uL (0.90-5.00) 01/04/25 07:14 Monocytes # 0.42 10*3/uL (0.20-1.00) 01/04/25 07:14 Eosinophils # 0.23 10*3/uL (0.04-0.35) 01/04/25 07:14 Basophils # 0.01 10*3/uL (0.00-0.10) 01/04/25 07:14 Sodium 140 mmol/L (137-145) 01/04/25 07:14 Potassium 4.1 mmol/L (3.5-5.1) 01/04/25 07:14 Chloride 109 mmol/L (98-107) H 01/04/25 07:14 Carbon Dioxide 25 mmol/L (22-30) 01/04/25 07:14 Anion Gap 6 mmol/L 01/04/25 07:14 BUN 14 mg/dL (9-20) 01/04/25 07:14 Creatinine 0.75 mg/dL (0.66-1.25) 01/04/25 07:14 Est GFR (CKD-EPI)AfAm >90 (>60 ml/min/1.73 sqM) 01/04/25 07:14 Est GFR (CKD-EPI)NonAf >90 (>60 ml/min/1.73 sqM) 01/04/25 07:14 Glucose 225 mg/dL (74-99) H 01/04/25 07:14 POC Glucose (mg/dL) 112 mg/dL (70-110) H 01/08/25 07:44 POC Glu Water Manager ID Eugenio Meyer 01/08/25 07:[address] Glu mg/dL 203 mg/dL 01/04/25 07:14 Hemoglobin A1c 8.7 % (<=6.0) H 01/04/25 07:14 Calcium 9.3 mg/dL (8.4-10.2) 01/04/25 07:14 Total Bilirubin 0.5 mg/dL (0.2-1.3) 01/04/25 07:14 AST 23 U/L (17-59) 01/04/25 07:14 ALT 39 U/L (4-49) 01/04/25 07:14 Alkaline Phosphatase 72 U/L (38-126) 01/04/25 07:14 Total Protein 5.7 g/dL (6.3-8.2) L 01/04/25 07:14 Albumin 3.7 g/dL (3.5-5.0) 01/04/25 07:14 Triglycerides 123.00 mg/dL (0.00-149.00) 01/04/25 07:14 Cholesterol 187.00 mg/dL (0.00-200.00) 01/04/25 07:14 LDL Cholesterol, Calc 119.1 mg/dL (0.0-131.0) 01/04/25 07:14 VLDL Cholesterol, Calc 24.60 mg/dL (5.00-40.00) 01/04/25 07:14 HDL Cholesterol 43.30 mg/dL (40.00-60.00) 01/04/25 07:14 Cholesterol/HDL Ratio 4.32 Ratio 01/04/25 07:14 TSH 0.614 mIU/L (0.465-4.680) 01/04/25 07:14 Urine Color Yellow 01/04/25 13:40 Urine Appearance Clear (Clear) 01/04/25 13:40 Urine pH 6.0 (5.0-8.0) 01/04/25 13:40 Ur Specific [place] 1.023 (1.001-1.035) 01/04/25 13:40 Urine Protein Negative (Negative) 01/04/25 13:40 Urine Glucose (UA) 4+ (Negative) H 01/04/25 13:40 Urine Ketones Negative (Negative) 01/04/25 13:40 Urine Blood Negative (Negative) 01/04/25 13:40 Urine Nitrite Negative (Negative) 01/04/25 13:40 Urine Bilirubin Negative (Negative) 01/04/25 13:40 Urine Urobilinogen 2.0 mg/dL (<2.0) 01/04/25 13:40 Ur Leukocyte Esterase Negative (Negative) 01/04/25 13:40 Urine Opiates Screen Not Detected (NotDetected) 01/04/25 13:40 Ur Oxycodone Screen Not Detected (NotDetected) 01/04/25 13:40 Urine Methadone Screen Not Detected (NotDetected) 01/04/25 13:40 Ur Barbiturates Screen Not Detected (NotDetected) 01/04/25 13:40 U Tricyclic Antidepress Detected (NotDetected) H 01/04/25 13:40 Ur Phencyclidine Scrn Not Detected (NotDetected) 01/04/25 13:40 Ur Amphetamines Screen Not Detected (NotDetected) 01/04/25 13:40 U Methamphetamines Scrn Not Detected (NotDetected) 01/04/25 13:40 U Benzodiazepines Scrn Detected (NotDetected) H 01/04/25 13:40 Urine Cocaine Screen Not Detected (NotDetected) 01/04/25 13:40 U Marijuana (THC) Screen Not Detected (NotDetected) 01/04/25 13:40 Influenza Type A (PCR) Not Detected (Not Detectd) 01/03/25 13:00 Influenza Type B (PCR) Not Detected (Not Detectd) 01/03/25 13:00 RSV (PCR) Not Detected (Not Detectd) 01/03/25 13:00 SARS-CoV-2 (PCR) Not Detected (Not Detectd) 01/03/25 13:00 Vital Signs Temp 98.1 F 01/07/25 21:00 Pulse 73 01/07/25 21:00 Resp 16 01/07/25 21:00 BP 120/69 01/07/25 21:00 Pulse Ox 99 01/07/25 21:00 FiO2 Intake & Output 01/07/25 01/08/25 01/08/25 18:59 06:59 18:59 Weight 81.8 kg Patient Condition at Discharge: Stable Plan - Discharge Summary Discharge Rx Participant: No New Discharge Prescriptions: New Atorvastatin [Lipitor] 40 mg PO HS 30 Days #30 tab INSULIN LISPRO (HumaLOG) [HumaLOG] 0 unit SQ ACHS each Nicotine Gum (Polacrilex) [Nicorette] 2 mg BUCCAL Q6HR PRN 30 Days #180 pieceofgum PRN Reason: Nicotine Cravings traZODone HCL 100 mg PO HS PRN 30 Days #30 tab PRN Reason: Insomnia Acetaminophen Tab [Tylenol] 650 mg PO Q4HR PRN tab PRN Reason: Mild Pain (Scale 1 To 3) Continue Albuterol Inhaler [Ventolin Hfa Inhaler] 2 puff INHALATION RT-Q6H PRN PRN Reason: Shortness Of Breath Aspirin EC [Ecotrin Low Dose] 81 mg PO DAILY 30 Days #30 tab Tamsulosin [Flomax] 0.4 mg PO BID 30 Days #60 cap glipiZIDE 2.5 mg PO DAILY 30 Days #30 tab Insulin Glargine,Hum.rec.anlog [Insulin Glargine Solostar] 20 unit SQ HS 30 Days #1 each Montelukast [Singulair] 10 mg PO DAILY 30 Days #30 tab Budesonide/Formoterol Fumarate [Symbicort 80-4.5 Mcg Inhaler] 2 puff INHALATION RT-BID 30 Days #1 each Citalopram Hydrobromide [CeleXA] 40 mg PO DAILY 30 Days #30 tab Naproxen [EC-Naprosyn] 500 mg PO BID PRN 30 Days #60 tab PRN Reason: Pain Or Fever > 100.5 metFORMIN HCL ER [Glucophage XR] 500 mg PO BID 30 Days #60 tab Omeprazole [PriLOSEC] 40 mg PO BID 30 Days #60 cap QUEtiapine [SEROquel] 200 mg PO HS 30 Days #30 tab Cetirizine HCl [Zyrtec] 10 mg PO DAILY 30 Days #30 tab Changed ARIPiprazole IM SYRINGE [Abilify Maintena Syringe] 400 mg IM Q28D #1 each Discontinued Insulin Lispro [humaLOG Kwikpen] See Protocol SQ AC-TID Discharge Medication List Albuterol Inhaler [Ventolin Hfa Inhaler] 2 puff INHALATION RT-Q6H PRN 01/03/25 [History] ARIPiprazole IM SYRINGE [Abilify Maintena Syringe] 400 mg IM Q28D #1 each 01/08/25 [Rx] Acetaminophen Tab [Tylenol] 650 mg PO Q4HR PRN tab 01/08/25 [Rx] Aspirin EC [Ecotrin Low Dose] 81 mg PO DAILY 30 Days #30 tab 01/08/25 [Rx] Atorvastatin [Lipitor] 40 mg PO HS 30 Days #30 tab 01/08/25 [Rx] Budesonide/Formoterol Fumarate [Symbicort 80-4.5 Mcg Inhaler] 2 puff INHALATION RT-BID 30 Days #1 each 01/08/25 [Rx] Cetirizine HCl [Zyrtec] 10 mg PO DAILY 30 Days #30 tab 01/08/25 [Rx] Citalopram Hydrobromide [CeleXA] 40 mg PO DAILY 30 Days #30 tab 01/08/25 [Rx] INSULIN LISPRO (HumaLOG) [HumaLOG] 0 unit SQ ACHS each 01/08/25 [Rx] Insulin Glargine,Hum.rec.anlog [Insulin Glargine Solostar] 20 unit SQ HS 30 Days #1 each 01/08/25 [Rx] Montelukast [Singulair] 10 mg PO DAILY 30 Days #30 tab 01/08/25 [Rx] Naproxen [EC-Naprosyn] 500 mg PO BID PRN 30 Days #60 tab 01/08/25 [Rx] Nicotine Gum (Polacrilex) [Nicorette] 2 mg BUCCAL Q6HR PRN 30 Days #180 pieceofgum 01/08/25 [Rx] Omeprazole [PriLOSEC] 40 mg PO BID 30 Days #60 cap 01/08/25 [Rx] QUEtiapine [SEROquel] 200 mg PO HS 30 Days #30 tab 01/08/25 [Rx] Tamsulosin [Flomax] 0.4 mg PO BID 30 Days #60 cap 01/08/25 [Rx] glipiZIDE 2.5 mg PO DAILY 30 Days #30 tab 01/08/25 [Rx] metFORMIN HCL ER [Glucophage XR] 500 mg PO BID 30 Days #60 tab 01/08/25 [Rx] traZODone HCL 100 mg PO HS PRN 30 Days #30 tab 01/08/25 [Rx] Follow up Appointment(s)/Referral(s): [facility] [Outside] - 01/09/25 12:30 pm (01-09-25 at 12:30 with Bria España 01-10-25 at 12:[address] Townsend ) Ramya Saul MD [Primary Care Provider] - 1-2 days Patient Instructions/Handouts: Depression (ED) Activity/Diet/Wound Care/Special Instructions: [facility] Discharge Info Avoid the use of street drugs and alcohol. Take all medications as prescribed. When you are in need of refills on your medications, please contact your outpatient medical provider and/or outpatient psychiatrist. Please go to your scheduled outpatient appointments for aftercare treatment. If symptoms return or become worse, call the crisis line at or and/or visit the nearest emergency room for assistance. National Suicide and Crisis Lifeline - call or text 988. Discharge Disposition: HOME SELF-CARE
[2025-01-08 11:09] VITALS: BP 106/68; PULSE 65; RESP 18; TEMP 97.5
[2025-01-08 12:36] LABS: Glucose,Whole Blood 157 mg/dL (70-110)
== END 2025-01-08 13:15 | disposition home or self-care (01) | DRG 882 ==
LOC: EC 17:39 → 3MHU 01-03 14:27
PROVIDERS: ADMIT Psychiatry & Neurology Psychiatry; ATTEND Psychiatry & Neurology Psychiatry
DX: F43.20 Adjustment disorder, unspecified (principal); F25.1 Schizoaffective disorder, depressive type; E11.9 Type 2 diabetes mellitus without complications; J44.89 Other specified chronic obstructive pulmonary disease; G40.909 Epilepsy, unspecified, not intractable, without status epilepticus; F10.11 Alcohol abuse, in remission; I10 Essential (primary) hypertension; R45.851 Suicidal ideations; F31.9 Bipolar disorder, unspecified; Z79.4 Long term (current) use of insulin; E78.5 Hyperlipidemia, unspecified; F17.200 Nicotine dependence, unspecified, uncomplicated; F41.1 Generalized anxiety disorder; G47.33 Obstructive sleep apnea (adult) (pediatric); H91.90 Unspecified hearing loss, unspecified ear; N40.0 Benign prostatic hyperplasia without lower urinary tract symptoms; Z79.51 Long term (current) use of inhaled steroids; Z79.82 Long term (current) use of aspirin; Z79.84 Long term (current) use of oral hypoglycemic drugs; Z79.899 Other long term (current) drug therapy; Z80.0 Family history of malignant neoplasm of digestive organs; Z80.1 Family history of malignant neoplasm of trachea, bronchus and lung; Z83.3 Family history of diabetes mellitus; Z86.73 Personal history of transient ischemic attack (TIA), and cerebral infarction without residual deficits; Z91.51 Personal history of suicidal behavior
CPT/HCPCS: 36415; 80053; 80061; 80306; 81003; 83036; 84443; 85025; 87636; 99285

== ENCOUNTER 2025-01-09 18:16 | Emergency (ER) | payer MEDICARE, OTHER ==
[2025-01-09 18:24] VITALS: RESP 18
[2025-01-09 18:26] LABS: Glucose,Whole Blood 217 mg/dL (70-110)
--- NOTE | 2025-01-09 19:03 | ED ---
General Adult HPI - General Chief complaint: Recheck/Abnormal Lab/Rx Stated complaint: mouth and tongue tingling Time Seen by Provider: 01/09/25 18:30 Source: patient, RN notes reviewed Mode of arrival: ambulatory Limitations: no limitations - History of Present Illness Initial comments: 54-year-old male presents to the emergency department for a myriad of complaints. Patient is endorsing generalized pain from his head to his toes. He also endorses nausea. He states that he is having difficulty keeping down water but he is tolerating ice chips and some food. He states that his symptoms started about a week ago. He did see his primary care provider today. - Related Data Home Medications Medication Instructions Recorded Confirmed Albuterol Inhaler [Ventolin Hfa 2 puff INHALATION RT-Q6H PRN 01/03/25 01/03/25 Inhaler] Previous Rx's Medication Instructions Recorded ARIPiprazole IM SYRINGE [Abilify 400 mg IM Q28D #1 each 01/08/25 Maintena Syringe] Acetaminophen Tab [Tylenol] 650 mg PO Q4HR PRN tab 01/08/25 Aspirin EC [Ecotrin Low Dose] 81 mg PO DAILY 30 Days #30 tab 01/08/25 Atorvastatin [Lipitor] 40 mg PO HS 30 Days #30 tab 01/08/25 Budesonide/Formoterol Fumarate 2 puff INHALATION RT-BID 30 Days 01/08/25 [Symbicort 80-4.5 Mcg Inhaler] #1 each Cetirizine HCl [Zyrtec] 10 mg PO DAILY 30 Days #30 tab 01/08/25 Citalopram Hydrobromide [CeleXA] 40 mg PO DAILY 30 Days #30 tab 01/08/25 INSULIN LISPRO (HumaLOG) [HumaLOG] 0 unit SQ ACHS each 01/08/25 Insulin Glargine,Hum.rec.anlog 20 unit SQ HS 30 Days #1 each 01/08/25 [Insulin Glargine Solostar] Montelukast [Singulair] 10 mg PO DAILY 30 Days #30 tab 01/08/25 Naproxen [EC-Naprosyn] 500 mg PO BID PRN 30 Days #60 tab 01/08/25 Nicotine Gum (Polacrilex) 2 mg BUCCAL Q6HR PRN 30 Days #180 07/14/25 [Nicorette] pieceofgum Omeprazole [PriLOSEC] 40 mg PO BID 30 Days #60 cap 01/08/25 QUEtiapine [SEROquel] 200 mg PO HS 30 Days #30 tab 01/08/25 Tamsulosin [Flomax] 0.4 mg PO BID 30 Days #60 cap 01/08/25 glipiZIDE 2.5 mg PO DAILY 30 Days #30 tab 01/08/25 metFORMIN HCL ER [Glucophage XR] 500 mg PO BID 30 Days #60 tab 01/08/25 traZODone HCL 100 mg PO HS PRN 30 Days #30 tab 01/08/25 Allergies Allergy/AdvReac Type Severity Reaction Status Date / Time dicyclomine HCl [From Bentyl] Allergy Unknown Dyspnea Verified 01/09/25 18:27 latex Allergy Unknown Rash/Hives Verified 01/09/25 18:27 Benzoate Analogues Allergy Unknown Verified 01/09/25 18:27 benzonatate Allergy Unknown Verified 01/09/25 18:27 nitrofurantoin Allergy Nausea Verified 01/09/25 18:27 [From Macrobid] Penicillins Allergy "[place] Verified 01/09/25 18:27 funny" adhesive AdvReac Unknown Itching Verified 01/09/25 18:27 ciprofloxacin AdvReac Unknown Nausea Verified 01/09/25 18:27 Macrolide Antibiotics AdvReac Unknown Nausea Verified 01/09/25 18:27 sulfamethoxazole AdvReac Unknown Unknown Verified 01/09/25 18:27 [From Bactrim] trimethoprim [From Bactrim] AdvReac Unknown Unknown Verified 01/09/25 18:27 diphenhydramine AdvReac Confusion Verified 01/09/25 18:27 [From Benadryl] trazodone AdvReac Swelling Verified 01/09/25 18:27 Review of Systems ROS Statement: Those systems with pertinent positive or pertinent negative responses have been documented in the HPI. ROS Other: All systems not noted in ROS Statement are negative. Past Medical History Past Medical History: Asthma, Chest Pain / Angina, COPD, CVA/TIA, Diabetes Mellitus, GERD/Reflux, Hearing Disorder / Deafness, Hyperlipidemia, Hypertension, Liver Disease, Osteoarthritis (OA), Pneumonia, Seizure Disorder, Sleep Apnea/CPAP/BIPAP Additional Past Medical History / Comment(s): states CVA at 35 yrs old, no weakness @ this time. states seizure at 35 yrs old., DDD- back & neck pain., carpal tunnel syndrome. Has [employer] public guardian. History of Any Multi-Drug Resistant Organisms: None Reported, Other MDRO Past Surgical History: Heart Catheterization, Orthopedic Surgery Additional Past Surgical History / Comment(s): Cysts removed, left thumb surge ry, colonoscopy 08/24/2019. Skin tags removed from both eyes. Past Anesthesia/Blood Transfusion Reactions: Motion Sickness, Postoperative Nausea & Vomiting (PONV) Past Psychological History: Anxiety, Bipolar, Depression Smoking Status: Current every day smoker Past Alcohol Use History: Abuse Past Drug Use History: None Reported - Past Family History Brother(s) Family Medical History: Diabetes Mellitus Additional Family Medical History / Comment(s): Patient has 2 brothers. One from complications from diabetes. The second is alive with diabetes. Sister(s) Family Medical History: Cancer Additional Family Medical History / Comment(s): Patient has one sister with breast cancer. Patient does not have any children. Father Family Medical History: Cancer Additional Family Medical History / Comment(s): Father in his 40s or 50s from colon cancer. Mother Family Medical History: Cancer Additional Family Medical History / Comment(s): Mother at age 68 from lung cancer. General Exam Limitations: no limitations General appearance: alert, in no apparent distress Head exam: Present: atraumatic, normocephalic, normal inspection Eye exam: Present: normal appearance, PERRL, EOMI. Absent: scleral icterus, conjunctival injection, periorbital swelling ENT exam: Present: mucous membranes dry Neck exam: Present: normal inspection. Absent: tenderness, meningismus, lymphadenopathy Respiratory exam: Present: normal lung sounds bilaterally. Absent: respiratory distress, wheezes, rales, rhonchi, stridor Cardiovascular Exam: Present: regular rate, normal rhythm, normal heart sounds. Absent: systolic murmur, diastolic murmur, rubs, gallop, clicks GI/Abdominal exam: Present: soft. Absent: distended, tenderness, guarding, rebound, rigid Extremities exam: Present: normal inspection, full ROM, normal capillary refill. Absent: tenderness, pedal edema, joint swelling, calf tenderness Neurological exam: Present: alert, oriented X3 Psychiatric exam: Present: normal affect, normal mood Skin exam: Present: warm, dry, intact, normal color. Absent: rash Course Vital Signs 01/09/25 18:22 Temperature 98.3 F Pulse Rate 75 Respiratory 18 Rate Blood Pressure 139/81 O2 Sat by Pulse 97 Oximetry Medical Decision Making - Medical Decision Making Was pt. sent in by a medical professional or institution (SEAN Cordova, HOTEL SERVICES SUPERVISOR, urgent care, hospital, or jail...) When possible be specific @ -[No] Did you speak to anyone other than the patient for history (EMS, parent, family, police, friend...)? What history was obtained from this source @ -[No] Did you review nursing and triage notes (agree or disagree)? Why? @ -[I reviewed and agree with nursing and triage notes] Were old charts reviewed (outside hosp., previous admission, EMS record, old EKG, old radiological studies, urgent care reports/EKG's, jail records)? Report findings @ -[No old charts were reviewed] Differential Diagnosis (chest pain, altered mental status, abdominal pain women, abdominal pain men, vaginal bleeding, weakness, fever, dyspnea, syncope, headache, dizziness, GI bleed, back pain, seizure, CVA, palpatations, mental health, musculoskeletal)? @ -[not applicable] EKG interpreted by me (3pts min.). @ -[As above] X-rays interpreted by me (1pt min.). @ -[None done] CT interpreted by me (1pt min.). @ -[None done] U/S interpreted by me (1pt. min.). @ -[None done] What testing was considered but not performed or refused? (CT, X-rays, U/S, labs)? Why? @ -[None] What meds were considered but not given or refused? Why? @ -[None] Did you discuss the management of the patient with other professionals (professionals i.e. SEAN Cordova, HOTEL SERVICES SUPERVISOR, lab, RT, psych nurse, psychiatric social worker supervisor, gallery or museum technician, teacher, licensing officer, medical case worker)? Give summary @ -[No] Was smoking cessation discussed for >3mins.? @ -[No] Was critical care preformed (if so, how long)? @ -[No] Were there social determinants of health that impacted care today? How? (Homelessness, low income, unemployed, alcoholism, drug addiction, transportation, low edu. Level, literacy, decrease access to med. care, senior care, rehab)? @ -[No] Was there de-escalation of care discussed even if they declined (Discuss DNR or withdrawal of care, Hospice)? DNR status @ -[No] What co-morbidities impacted this encounter? (DM, HTN, Smoking, COPD, CAD, Cancer, CVA, ARF, Chemo, Hep., AIDS, mental health diagnosis, sleep apnea, morbid obesity)? @ -[None] Was patient admitted / discharged? Hospital course, mention meds given and route, prescriptions, significant lab abnormalities, going to OR and other pertinent info. @ -[hospital course] Undiagnosed new problem with uncertain prognosis? @ -[No] Drug Therapy requiring intensive monitoring for toxicity (Heparin, Nitro, Insulin, Cardizem)? @ -[No] Were any procedures done? @ -[No] Diagnosis/symptom? @ -[default] Acute, or Chronic, or Acute on Chronic? @ -[default] Uncomplicated (without systemic symptoms) or Complicated (systemic symptoms)? @ -[default] Side effects of treatment? @ -[No] Exacerbation, Progression, or Severe Exacerbation? @ -[No] Poses a threat to life or bodily function? How? (Chest pain, [place], [place], pneumonia, PE, COPD, DKA, ARF, appy, cholecystitis, CVA, Diverticulitis, Homicidal, Suicidal, threat to staff... and all critical care pts) @ -[No] - Lab Data Result diagrams: 01/09/25 19:40 01/09/25 19:40 Lab Results 01/09/25 01/09/25 01/09/25 Range/Units 18:25 19:40 19:40 WBC 7.17 (4.50-10.00) 10*3/uL RBC 4.59 (4.40-5.60) 10*6/uL Hgb 13.8 (13.0-17.0) g/dL Hct 39.2 L (39.6-50.0) % MCV 85.4 (80.0-97.0) fL MCH 30.1 (27.0-32.0) pg MCHC 35.2 (32.0-37.0) g/dL Plt Count 180 (140-440) 10*3/uL MPV 9.3 L (9.5-12.2) fL Immature Gran % (Auto) 1.7 % Neutrophils % 68.0 % Lymphocytes % 15.9 % Monocytes % 10.5 % Eosinophils % 3.8 % Basophils % 0.1 % Immature Gran # 0.12 H (0.00-0.04) 10*3/uL Neutrophils # 4.88 (1.80-7.70) 10*3/uL Lymphocytes # 1.14 (0.90-5.00) 10*3/uL Monocytes # 0.75 (0.20-1.00) 10*3/uL Eosinophils # 0.27 (0.04-0.35) 10*3/uL Basophils # 0.01 (0.00-0.10) 10*3/uL Sodium 138 (137-145) mmol/L Potassium 4.2 (3.5-5.1) mmol/L Chloride 106 (98-107) mmol/L Carbon Dioxide 24 (22-30) mmol/L Anion Gap 8 mmol/L BUN 14 (9-20) mg/dL Creatinine 0.66 (0.66-1.25) mg/dL Est GFR (CKD-EPI)AfAm >90 (>60 ml/min/1.73 sqM) Est GFR (CKD-EPI)NonAf >90 (>60 ml/min/1.73 sqM) Glucose 233 H (74-99) mg/dL POC Glucose (mg/dL) 217 H (70-110) mg/dL POC Glu On Site Construction Superintendent ID Kuldeep Horowitz Calcium 9.5 (8.4-10.2) mg/dL Total Bilirubin 0.4 (0.2-1.3) mg/dL AST 46 (17-59) U/L ALT 49 (4-49) U/L Alkaline Phosphatase 98 (38-126) U/L Total Protein 6.0 L (6.3-8.2) g/dL Albumin 3.9 (3.5-5.0) g/dL Disposition Clinical Impression: Generalized pain Disposition: HOME SELF-CARE Condition: Stable Additional Instructions: Please follow up with your doctor. Return to the emergency department for new or worsening symptoms. Is patient prescribed a controlled substance at d/c from ED?: No Referrals: Compa Lopez MD [Primary Care Provider] - 1-2 days
[2025-01-09] MEDS: ONDANSETRON 4 MG/2 ML VIAL IVP STA (19:42)
[2025-01-09] MEDS: SODIUM CHLORIDE 0.9% 1,000 ML IV ONE (19:42)
[2025-01-09] MEDS: KETOROLAC 15 MG/ML 1 ML VIAL IVP STA ×2 (19:42→20:53)
[2025-01-09 19:54] LABS: Basophils # (A) 0.01 10*3/uL (0.00-0.10); Basophils % (A) 0.1 %; Eosinophils # (A) 0.27 10*3/uL (0.04-0.35); Eosinophils % (A) 3.8 %; HCT 39.2 % (39.6-50.0); HGB 13.8 g/dL (13.0-17.0); Lymphocytes # (A) 1.14 10*3/uL (0.90-5.00); Lymphocytes % (A) 15.9 %; MCH 30.1 pg (27.0-32.0); MCHC 35.2 g/dL (32.0-37.0); MCV 85.4 fL (80.0-97.0); Monocytes # (A) 0.75 10*3/uL (0.20-1.00); Monocytes % (A) 10.5 %; Neutrophils # (A) 4.88 10*3/uL (1.80-7.70); Neutrophils % (A) 68.0 %; Platelet Count 180 10*3/uL (140-440); RBC 4.59 10*6/uL (4.40-5.60); RDW 13.6 % (11.5-14.5); WBC 7.17 10*3/uL (4.50-10.00)
[2025-01-09 20:04] LABS: ALT 49 U/L (4-49); AST 46 U/L (17-59); African American GFR (CKD) >90 (>60 ml/min/1.73 sqM); Albumin 3.9 g/dL (3.5-5.0); Alkaline Phosphatase 98 U/L (38-126); Anion Gap 8 mmol/L; Blood Urea Nitrogen 14 mg/dL (9-20); Calcium 9.5 mg/dL (8.4-10.2); Carbon Dioxide 24 mmol/L (22-30); Chloride 106 mmol/L (98-107); Glucose 233 mg/dL (74-99); Non-African American GFR(CKD) >90 (>60 ml/min/1.73 sqM); Potassium 4.2 mmol/L (3.5-5.1); Sodium 138 mmol/L (137-145); Total Protein 6.0 g/dL (6.3-8.2)
[2025-01-09] MEDS: METOCLOPRAMIDE 5 MG/ML 2 ML VIAL IVP STA (20:52)
[2025-01-09 21:10] VITALS: BP 132/87; PULSE 82; TEMP 98.1
== END 2025-01-09 21:11 | disposition home or self-care (01) ==
LOC: EC 18:16
DX: R20.2 Paresthesia of skin (principal); F17.200 Nicotine dependence, unspecified, uncomplicated; Z86.73 Personal history of transient ischemic attack (TIA), and cerebral infarction without residual deficits; Z88.1 Allergy status to other antibiotic agents; Z88.0 Allergy status to penicillin; Z88.2 Allergy status to sulfonamides; Z88.8 Allergy status to other drugs, medicaments and biological substances; Z91.040 Latex allergy status
CPT/HCPCS: 36415; 80053; 85025; 99284; 96374; 96375 ×2; 96376; 96361; J2765; J2405; J1885

== ENCOUNTER 2025-01-11 15:10 | Emergency (ER) | payer MEDICARE, OTHER ==
[2025-01-11 15:16] LABS: Glucose,Whole Blood 417 mg/dL (70-110)
[2025-01-11 15:18] VITALS: TEMP 98.4
--- NOTE | 2025-01-11 15:20 | ED ---
Nausea/Vomiting/Diarrhea HPI - General Source: patient Mode of arrival: ambulatory Limitations: no limitations <Odilia Acosta - Last Filed: 01/11/25 17:24> <Andrea Felix - Last Filed: 01/12/25 20:45> - General Chief complaint: Nausea/Vomiting/Diarrhea Stated complaint: Hyperglycemia Time Seen by Provider: 01/11/25 15:14 - History of Present Illness Initial comments: 54-year-old male with diabetes, asthma, hyperlipidemia, hypertension, osteoarthritis seizure disorder, history of MDRO (E faecalis) here for nausea and vomiting. Patient reported that he has been having nausea and nonbloody vomiting for a couple days. Also reported generalized abdominal pain but says it is not new and that he feels thirsty. Reported that he has been taking his diabetes meds including his insulin. Still current daily smoker. Last seen yesterday for multiple complaints. No fever, chills, diarrhea, skin changes. (Odilia Acosta) - Related Data Home Medications Medication Instructions Recorded Confirmed Albuterol Inhaler [Ventolin Hfa 2 puff INHALATION RT-Q6H PRN 01/03/25 01/03/25 Inhaler] Previous Rx's Medication Instructions Recorded ARIPiprazole IM SYRINGE [Abilify 400 mg IM Q28D #1 each 01/08/25 Maintena Syringe] Acetaminophen Tab [Tylenol] 650 mg PO Q4HR PRN tab 01/08/25 Aspirin EC [Ecotrin Low Dose] 81 mg PO DAILY 30 Days #30 tab 01/08/25 Atorvastatin [Lipitor] 40 mg PO HS 30 Days #30 tab 01/08/25 Budesonide/Formoterol Fumarate 2 puff INHALATION RT-BID 30 Days 01/08/25 [Symbicort 80-4.5 Mcg Inhaler] #1 each Cetirizine HCl [Zyrtec] 10 mg PO DAILY 30 Days #30 tab 01/08/25 Citalopram Hydrobromide [CeleXA] 40 mg PO DAILY 30 Days #30 tab 01/08/25 INSULIN LISPRO (HumaLOG) [HumaLOG] 0 unit SQ ACHS each 01/08/25 Insulin Glargine,Hum.rec.anlog 20 unit SQ HS 30 Days #1 each 01/08/25 [Insulin Glargine Solostar] Montelukast [Singulair] 10 mg PO DAILY 30 Days #30 tab 01/08/25 Naproxen [EC-Naprosyn] 500 mg PO BID PRN 30 Days #60 tab 01/08/25 Nicotine Gum (Polacrilex) 2 mg BUCCAL Q6HR PRN 30 Days #180 01/08/25 [Nicorette] pieceofgum Omeprazole [PriLOSEC] 40 mg PO BID 30 Days #60 cap 01/08/25 QUEtiapine [SEROquel] 200 mg PO HS 30 Days #30 tab 01/08/25 Tamsulosin [Flomax] 0.4 mg PO BID 30 Days #60 cap 01/08/25 glipiZIDE 2.5 mg PO DAILY 30 Days #30 tab 01/08/25 metFORMIN HCL ER [Glucophage XR] 500 mg PO BID 30 Days #60 tab 01/08/25 traZODone HCL 100 mg PO HS PRN 30 Days #30 tab 01/08/25 Ondansetron [Zofran] 4 mg PO Q8HR PRN #6 tab 01/11/25 Allergies Allergy/AdvReac Type Severity Reaction Status Date / Time dicyclomine HCl [From Bentyl] Allergy Unknown Dyspnea Verified 01/09/25 18:27 latex Allergy Unknown Rash/Hives Verified 01/09/25 18:27 Benzoate Analogues Allergy Unknown Verified 01/09/25 18:27 benzonatate Allergy Unknown Verified 01/09/25 18:27 nitrofurantoin Allergy Nausea Verified 01/09/25 18:27 [From Macrobid] Penicillins Allergy "[place] Verified 01/09/25 18:27 funny" adhesive AdvReac Unknown Itching Verified 01/09/25 18:27 ciprofloxacin AdvReac Unknown Nausea Verified 01/09/25 18:27 Macrolide Antibiotics AdvReac Unknown Nausea Verified 01/09/25 18:27 sulfamethoxazole AdvReac Unknown Unknown Verified 01/09/25 18:27 [From Bactrim] trimethoprim [From Bactrim] AdvReac Unknown Unknown Verified 01/09/25 18:27 diphenhydramine AdvReac Confusion Verified 01/09/25 18:27 [From Benadryl] trazodone AdvReac Swelling Verified 01/09/25 18:27 Review of Systems ROS Other: All systems not noted in ROS Statement are negative. <Odilia Acosta - Last Filed: 01/11/25 17:24> ROS Other: All systems not noted in ROS Statement are negative. <Andrea Felix - Last Filed: 01/12/25 20:45> ROS Statement: Those systems with pertinent positive or pertinent negative responses have been documented in the HPI. Past Medical History Past Medical History: Asthma, Chest Pain / Angina, COPD, CVA/TIA, Diabetes Xiomy itus, GERD/Reflux, Hearing Disorder / Deafness, Hyperlipidemia, Hypertension, Liver Disease, Osteoarthritis (OA), Pneumonia, Seizure Disorder, Sleep Apnea/CPAP/BIPAP Additional Past Medical History / Comment(s): states CVA at 35 yrs old, no weakness @ this time. states seizure at 35 yrs old., DDD- back & neck pain., carpal tunnel syndrome. Has [employer] public guardian. History of Any Multi-Drug Resistant Organisms: None Reported, Other MDRO Past Surgical History: Heart Catheterization, Orthopedic Surgery Additional Past Surgical History / Comment(s): Cysts removed, left thumb surgery, colonoscopy 08/24/2019. Skin tags removed from both eyes. Past Anesthesia/Blood Transfusion Reactions: Motion Sickness, Postoperative Nausea & Vomiting (PONV) Past Psychological History: Anxiety, Bipolar, Depression Smoking Status: Current every day smoker Past Alcohol Use History: Abuse Past Drug Use History: None Reported - Past Family History Brother(s) Family Medical History: Diabetes Mellitus Additional Family Medical History / Comment(s): Patient has 2 brothers. One from complications from diabetes. The second is alive with diabetes. Sister(s) Family Medical History: Cancer Additional Family Medical History / Comment(s): Patient has one sister with breast cancer. Patient does not have any children. Father Family Medical History: Cancer Additional Family Medical History / Comment(s): Father in his 40s or 50s from colon cancer. Mother Family Medical History: Cancer Additional Family Medical History / Comment(s): Mother at age 68 from lung cancer. <Odilia Acosta - Last Filed: 01/11/25 17:24> General Exam Limitations: no limitations <Odilia Acosta - Last Filed: 01/11/25 17:24> - General Exam Comments Initial Comments: Physical examination: Vital signs reviewed General: non toxic, no distress, appears at stated age Head: atraumatic, normocephalic, symmetric Mouth: no lip lesion, mucus membranes moist Cardiovascular: S1S2 reg, no murmur Lungs: Diffuse expiratory wheezing, no rhonchi, no rales, no accessory muscle use Abdominal: soft, nondistended, tender to light palpation in all quadrants, no guarding Ext: muscle strength 5 out of 5 in all 4 extremities grossly, no gross muscle atrophy, no contractures, positive dorsalis pedis pulse bilateral, no edema Neuro: no gross focal neuro deficits Psych: Alert and oriented x3, appropriate affect and mood (Odilia Acosta) Course Vital Signs 01/11/25 01/11/25 15:11 17:16 Temperature 98.4 F Pulse Rate 95 91 Respiratory 16 18 Rate Blood Pressure 160/79 149/89 O2 Sat by Pulse 98 98 Oximetry Medical Decision Making - Lab Data Result diagrams: 01/11/25 15:49 01/11/25 15:49 <Odilia Acosta - Last Filed: 01/11/25 17:24> - Lab Data Result diagrams: 01/11/25 15:49 01/11/25 15:49 <Andrea Felix - Last Filed: 01/12/25 20:45> - Medical Decision Making Was pt. sent in by a medical professional or institution (SEAN Cordova, LICENSED LAND SURVEYOR, urgent care, hospital, or shelter...) When possible be specific @ -No Did you speak to anyone other than the patient for history (EMS, parent, family, police, friend...)? What history was obtained from this source @ -No Did you review nursing and triage notes (agree or disagree)? Why? @ -I reviewed and agree with nursing and triage notes Were old charts reviewed (outside hosp., previous admission, EMS record, old EKG, old radiological studies, urgent care reports/EKG's, shelter records)? Report findings @ -Old charts were reviewed Differential Diagnosis? @ -Differential Abdominal Pain Men: Appendicitis, cholecystitis, diverticulosis, ischemic bowel, pancreatitis, hepatitis, UTI, gastroenteritis, AAA, incarcerated hernia, bowel obstruction, constipation, inflammatory bowel, hepatitis, peptic ulcer disease, splenic infarction, perforated viscus, testicular torsion, this is not meant to be an all-inclusive list EKG interpreted by me (3pts min.). @ -Not done X-rays interpreted by me (1pt min.). @ -None done CT interpreted by me (1pt min.). @ -None done U/S interpreted by me (1pt. min.). @ -None done What testing was considered but not performed or refused? (CT, X-rays, U/S, labs)? Why? @ -None What meds were considered but not given or refused? Why? @ -None Did you discuss the management of the patient with other professionals (professionals i.e. , PA, LICENSED LAND SURVEYOR, lab, RT, psych nurse, social security specialist, press tender short goods, teacher, correctional officer captain, case coordinator)? Give summary @ -Dr. Felix, supervising physician Was smoking cessation discussed for >3mins.? @ -No Was critical care preformed (if so, how long)? @ -No Were there social determinants of health that impacted care today? How? (Homelessness, low income, unemployed, alcoholism, drug addiction, transportation, low edu. Level, literacy, decrease access to med. care, [facility], rehab)? @ -No Was there de-escalation of care discussed even if they declined (Discuss DNR or withdrawal of care, Hospice)? DNR status @ -No What co-morbidities impacted this encounter? (DM, HTN, Smoking, COPD, CAD, Cancer, CVA, ARF, Chemo, Hep., AIDS, mental health diagnosis, sleep apnea, morbid obesity)? @ -[None] Was patient admitted / discharged? Hospital course, mention meds given and route, prescriptions, significant lab abnormalities, going to OR and other pertinent info. @ -Discharge. Patient's blood glucose on admission was 417. Other electrolytes were within normal limits. Acetone negative. Patient symptoms did not worsen throughout stay. Given 5 units lispro once to improve blood glucose control. He is cleared for discharge. Advised to follow-up with PCP for adequate glucose control. Undiagnosed new problem with uncertain prognosis? @ -[No] Drug Therapy requiring intensive monitoring for toxicity (Heparin, Nitro, Insulin, Cardizem)? @ -[No] Were any procedures done? @ -[No] Diagnosis/symptom? @ -[default] Acute, or Chronic, or Acute on Chronic? @ -[default] Uncomplicated (without systemic symptoms) or Complicated (systemic symptoms)? @ -Uncomplicated Side effects of treatment? @ -No Exacerbation, Progression, or Severe Exacerbation? @ -No Poses a threat to life or bodily function? How? (Chest pain, [place], [place], pneumonia, PE, COPD, DKA, ARF, appy, cholecystitis, CVA, Diverticulitis, Homicidal, Suicidal, threat to staff... and all critical care pts) @ -Yes. Possibly DKA (Odilia Acosta) I personally saw the patient and performed the critical portion of the service. I discussed the patient care with the resident. I directed management, care planning and final disposition of the patient. This includes, but not limited to, review of all lab work, radiological studies, EKG's, consultations, vital signs, and nursing notes. EKG interpreted by me (3pts min.) @As above X-Rays interpreted by me (1 pt min.) @None CT interpreted by me ( 1pt min.) @None U/S interpreted by me (1 pt min.) @None Critical care time of 0 minutes excluding separately billable procedures was spent in conjunction with critical care activities provided by the Resident and Attending simultaneously. I was present during no procedures for all critical portions of the procedure and as immediately available to furnish service during the entire procedure. (Andrea Felix) - Lab Data Lab Results 01/11/25 01/11/25 01/11/25 Range/Units 15:14 15:49 15:49 WBC 7.20 (4.50-10.00) 10*3/uL RBC 4.84 (4.40-5.60) 10*6/uL Hgb 14.9 (13.0-17.0) g/dL Hct 41.8 (39.6-50.0) % MCV 86.4 (80.0-97.0) fL MCH 30.8 (27.0-32.0) pg MCHC 35.6 (32.0-37.0) g/dL Plt Count 214 (140-440) 10*3/uL MPV 10.0 (9.5-12.2) fL Immature Gran % (Auto) 1.8 % Neutrophils % 80.4 % Lymphocytes % 12.1 % Monocytes % 5.0 % Eosinophils % 0.4 % Basophils % 0.3 % Immature Gran # 0.13 H (0.00-0.04) 10*3/uL Neutrophils # 5.79 (1.80-7.70) 10*3/uL Lymphocytes # 0.87 L (0.90-5.00) 10*3/uL Monocytes # 0.36 (0.20-1.00) 10*3/uL Eosinophils # 0.03 L (0.04-0.35) 10*3/uL Basophils # 0.02 (0.00-0.10) 10*3/uL Sodium 139 (137-145) mmol/L Potassium 4.5 (3.5-5.1) mmol/L Chloride 102 (98-107) mmol/L Carbon Dioxide 24 (22-30) mmol/L Anion Gap 13 mmol/L BUN 18 (9-20) mg/dL Creatinine 0.74 (0.66-1.25) mg/dL Est GFR (CKD-EPI)AfAm >90 (>60 ml/min/1.73 sqM) Est GFR (CKD-EPI)NonAf >90 (>60 ml/min/1.73 sqM) Glucose 395 H (74-99) mg/dL POC Glucose (mg/dL) 417 H (70-110) mg/dL POC Glu Corn Detasseler ID Uzair Blayne Calcium 10.9 H (8.4-10.2) mg/dL Total Bilirubin 0.4 (0.2-1.3) mg/dL AST 32 (17-59) U/L ALT 47 (4-49) U/L Alkaline Phosphatase 125 (38-126) U/L Total Protein 6.5 (6.3-8.2) g/dL Albumin 4.3 (3.5-5.0) g/dL Acetone, Qual Negative (Negative) Disposition Is patient prescribed a controlled substance at d/c from ED?: No Time of Disposition: 16:25 <Odilia Acosta - Last Filed: 01/11/25 17:24> <Andrea Felix - Last Filed: 01/12/25 20:45> Clinical Impression: Nausea & vomiting Disposition: HOME SELF-CARE Condition: Fair Prescriptions: Ondansetron [Zofran] 4 mg PO Q8HR PRN #6 tab PRN Reason: Nausea Referrals: Compa Lopez MD [Primary Care Provider] - 1-2 days
[2025-01-11 16:01] LABS: Basophils # (A) 0.02 10*3/uL (0.00-0.10); Basophils % (A) 0.3 %; Eosinophils # (A) 0.03 10*3/uL (0.04-0.35); Eosinophils % (A) 0.4 %; HCT 41.8 % (39.6-50.0); HGB 14.9 g/dL (13.0-17.0); Lymphocytes # (A) 0.87 10*3/uL (0.90-5.00); Lymphocytes % (A) 12.1 %; MCH 30.8 pg (27.0-32.0); MCHC 35.6 g/dL (32.0-37.0); MCV 86.4 fL (80.0-97.0); Monocytes # (A) 0.36 10*3/uL (0.20-1.00); Monocytes % (A) 5.0 %; Neutrophils # (A) 5.79 10*3/uL (1.80-7.70); Neutrophils % (A) 80.4 %; Platelet Count 214 10*3/uL (140-440); RBC 4.84 10*6/uL (4.40-5.60); RDW 13.2 % (11.5-14.5); WBC 7.20 10*3/uL (4.50-10.00)
[2025-01-11 16:12] LABS: ALT 47 U/L (4-49); AST 32 U/L (17-59); African American GFR (CKD) >90 (>60 ml/min/1.73 sqM); Albumin 4.3 g/dL (3.5-5.0); Alkaline Phosphatase 125 U/L (38-126); Anion Gap 13 mmol/L; Blood Urea Nitrogen 18 mg/dL (9-20); Calcium 10.9 mg/dL (8.4-10.2); Carbon Dioxide 24 mmol/L (22-30); Chloride 102 mmol/L (98-107); Glucose 395 mg/dL (74-99); Non-African American GFR(CKD) >90 (>60 ml/min/1.73 sqM); Potassium 4.5 mmol/L (3.5-5.1); Sodium 139 mmol/L (137-145); Total Protein 6.5 g/dL (6.3-8.2)
[2025-01-11] MEDS: INSULIN LISPRO (HumaLOG) 100 UNIT/ML 10 mL VL SQ ONE (16:53)
[2025-01-11 17:19] VITALS: BP 149/89; PULSE 91; RESP 18
== END 2025-01-11 17:19 | disposition home or self-care (01) ==
LOC: EC 15:10
DX: R11.2 Nausea with vomiting, unspecified (principal); F17.200 Nicotine dependence, unspecified, uncomplicated; E11.65 Type 2 diabetes mellitus with hyperglycemia; Z86.73 Personal history of transient ischemic attack (TIA), and cerebral infarction without residual deficits; Z88.1 Allergy status to other antibiotic agents; Z88.0 Allergy status to penicillin; Z88.2 Allergy status to sulfonamides; Z88.8 Allergy status to other drugs, medicaments and biological substances; Z91.040 Latex allergy status; Z79.4 Long term (current) use of insulin
CPT/HCPCS: 36415; 80053; 82009; 85025; 99284

== ENCOUNTER 2025-01-16 13:12 | Emergency (ER) | payer MEDICARE, OTHER ==
[2025-01-16 13:15] VITALS: TEMP 98.3
[2025-01-16 13:27] LABS: Glucose,Whole Blood 244 mg/dL (70-110)
--- NOTE | 2025-01-16 13:44 | ED ---
General Adult HPI - General Chief complaint: Alcohol Stated complaint: Diabetic Issues,ETOH Time Seen by Provider: 01/16/25 13:20 Source: patient, EMS, RN notes reviewed, old records reviewed Mode of arrival: EMS - History of Present Illness Initial comments: 54-year-old male well-known to emergency department with past medical history markable for diabetes, COPD, hyperlipidemia, hypertension. Presents emergency department stating his blood sugar has been high and he drank alcohol. States he drank 1 big glass of alcohol earlier but unknown what time. He has no other obvious acute complaints. Presents for further evaluation at this time. Is been compliant with medications. Apparently was seen at [facility] last night with identical complaints and he states he was discharged home. - Related Data Home Medications Medication Instructions Recorded Confirmed Albuterol Inhaler [Ventolin Hfa 2 puff INHALATION RT-Q6H PRN 01/03/25 01/03/25 Inhaler] Previous Rx's Medication Instructions Recorded ARIPiprazole IM SYRINGE [Abilify 400 mg IM Q28D #1 each 01/08/25 Maintena Syringe] Acetaminophen Tab [Tylenol] 650 mg PO Q4HR PRN tab 01/08/25 Aspirin EC [Ecotrin Low Dose] 81 mg PO DAILY 30 Days #30 tab 01/08/25 Atorvastatin [Lipitor] 40 mg PO HS 30 Days #30 tab 01/08/25 Budesonide/Formoterol Fumarate 2 puff INHALATION RT-BID 30 Days 01/08/25 [Symbicort 80-4.5 Mcg Inhaler] #1 each Cetirizine HCl [Zyrtec] 10 mg PO DAILY 30 Days #30 tab 01/08/25 Citalopram Hydrobromide [CeleXA] 40 mg PO DAILY 30 Days #30 tab 01/08/25 INSULIN LISPRO (HumaLOG) [HumaLOG] 0 unit SQ ACHS each 01/08/25 Insulin Glargine,Hum.rec.anlog 20 unit SQ HS 30 Days #1 each 01/08/25 [Insulin Glargine Solostar] Montelukast [Singulair] 10 mg PO DAILY 30 Days #30 tab 01/08/25 Naproxen [EC-Naprosyn] 500 mg PO BID PRN 30 Days #60 tab 01/08/25 Nicotine Gum (Polacrilex) 2 mg BUCCAL Q6HR PRN 30 Days #180 01/08/25 [Nicorette] pieceofgum Omeprazole [PriLOSEC] 40 mg PO BID 30 Days #60 cap 01/08/25 QUEtiapine [SEROquel] 200 mg PO HS 30 Days #30 tab 01/08/25 Tamsulosin [Flomax] 0.4 mg PO BID 30 Days #60 cap 01/08/25 glipiZIDE 2.5 mg PO DAILY 30 Days #30 tab 01/08/25 metFORMIN HCL ER [Glucophage XR] 500 mg PO BID 30 Days #60 tab 01/08/25 traZODone HCL 100 mg PO HS PRN 30 Days #30 tab 01/08/25 Ondansetron [Zofran] 4 mg PO Q8HR PRN #6 tab 01/11/25 Allergies Allergy/AdvReac Type Severity Reaction Status Date / Time dicyclomine HCl [From Bentyl] Allergy Unknown Dyspnea Verified 01/16/25 13:16 latex Allergy Unknown Rash/Hives Verified 01/16/25 13:16 Benzoate Analogues Allergy Unknown Verified 01/16/25 13:16 benzonatate Allergy Unknown Verified 01/16/25 13:16 nitrofurantoin Allergy Nausea Verified 01/16/25 13:16 [From Macrobid] Penicillins Allergy "[place] Verified 01/16/25 13:16 funny" adhesive AdvReac Unknown Itching Verified 01/16/25 13:16 ciprofloxacin AdvReac Unknown Nausea Verified 01/16/25 13:16 Macrolide Antibiotics AdvReac Unknown Nausea Verified 01/16/25 13:16 sulfamethoxazole AdvReac Unknown Unknown Verified 01/16/25 13:16 [From Bactrim] trimethoprim [From Bactrim] AdvReac Unknown Unknown Verified 01/16/25 13:16 diphenhydramine AdvReac Confusion Verified 01/16/25 13:16 [From Benadryl] trazodone AdvReac Swelling Verified 01/16/25 13:16 Review of Systems ROS Statement: Those systems with pertinent positive or pertinent negative responses have been documented in the HPI. Review of Systems: CONST: Denies fever EYES: Denies blurry vision ENT: Denies nasal congestion C/V: Denies Chest pain RESP: Denies shortness of breath GI: Denies abdominal pain : Denies dysuria SKIN: Denies rash. MSK: Denies joint pain. NEURO: Denies headache ROS Other: All systems not noted in ROS Statement are negative. Past Medical History Past Medical History: Asthma, Chest Pain / Angina, COPD, CVA/TIA, Diabetes Mellitus, GERD/Reflux, Hearing Disorder / Deafness, Hyperlipidemia, Hypertension, Liver Disease, Osteoarthritis (OA), Pneumonia, Seizure Disorder, Sleep Apnea/CPAP/BIPAP Additional Past Medical History / Comment(s): states CVA at 35 yrs old, no weakness @ this time. states seizure at 35 yrs old., DDD- back & neck pain., carpal tunnel syndrome. Has SCS public guardian. History of Any Multi-Drug Resistant Organisms: None Reported, Other MDRO Past Surgical History: Heart Catheterization, Orthopedic Surgery Additional Past Surgical History / Comment(s): Cysts removed, left thumb surgery, colonoscopy 08/24/2019. Skin tags removed from both eyes. Past Anesthesia/Blood Transfusion Reactions: Motion Sickness, Postoperative Nausea & Vomiting (PONV) Past Psychological History: Anxiety, Bipolar, Depression Smoking Status: Current every day smoker Past Alcohol Use History: Abuse Past Drug Use History: None Reported - Past Family History Brother(s) Family Medical History: Diabetes Mellitus Additional Family Medical History / Comment(s): Patient has 2 brothers. One from complications from diabetes. The second is alive with diabetes. Sister(s) Family Medical History: Cancer Additional Family Medical History / Comment(s): Patient has one sister with breast cancer. Patient does not have any children. Father Family Medical History: Cancer Additional Family Medical History / Comment(s): Father in his 40s or 50s from colon cancer. Mother Family Medical History: Cancer Additional Family Medical History / Comment(s): Mother at age 68 from lung cancer. General Exam - General Exam Comments Initial Comments: General: Appears in no acute distress. HEAD: Normal with no signs of head trauma. EYES: PERRLA, EOMI, conjunctiva normal, no discharge. ENT: Hearing grossly intact, normal oropharynx. RESPIRATORY: Clear breath sounds bilaterally. No wheezes, rales, or rhonchi. C/V: Regular rate and rhythm. S1 and S2 auscultated, no edema, peripheral pulses 2+ and intact throughout ABD: Abd is soft, nontender, nondistended EXT: Normal range of motion, no obvious deformity SKIN: No rashes or lesions observed on exposed skin. NEURO: Alert and oriented x 4. Course Vital Signs 01/16/25 13:13 Temperature 98.3 F Pulse Rate 66 Respiratory 14 Rate Blood Pressure 133/75 O2 Sat by Pulse 98 Oximetry Medical Decision Making - Medical Decision Making Was pt. sent in by a medical professional or institution (, SEAN, SERVICE DESK SPECIALIST, urgent care, hospital, or [facility]...) When possible be specific @ -No Did you speak to anyone other than the patient for history (EMS, parent, family, police, friend...)? What history was obtained from this source @ -No Did you review nursing and triage notes (agree or disagree)? Why? @ -I reviewed and agree with nursing and triage notes Were old charts reviewed (outside hosp., previous admission, EMS record, old EKG, old radiological studies, urgent care reports/EKG's, [facility] records)? Report findings @ -Today's EKG compared with EKG from November 2024 with no significant acute change. Differential Diagnosis (chest pain, altered mental status, abdominal pain women, abdominal pain men, vaginal bleeding, weakness, fever, dyspnea, syncope, headache, dizziness, GI bleed, back pain, seizure, CVA, palpatations, mental health, musculoskeletal)? @ -Hyperglycemia, electrolyte abnormality, DKA, alcohol intoxication. This list is not inclusive. EKG interpreted by me (3pts min.). @ -As above X-rays interpreted by me (1pt min.). @ -Chest x-ray shows no obvious acute cardiopulmonary process. CT interpreted by me (1pt min.). @ -None done U/S interpreted by me (1pt. min.). @ -None done What testing was considered but not performed or refused? (CT, X-rays, U/S, labs)? Why? @ -None What meds were considered but not given or refused? Why? @ -None Did you discuss the management of the patient with other professionals (professionals i.e. SEAN Cordova, SERVICE DESK SPECIALIST, lab, RT, psych nurse, social media editor, video games mechanic, teacher, commissioned fire officer, business case analyst)? Give summary @ -No Was smoking cessation discussed for >3mins.? @ -No Was critical care preformed (if so, how long)? @ -No Were there social determinants of health that impacted care today? How? (Homelessness, low income, unemployed, alcoholism, drug addiction, transportation, low edu. Level, literacy, decrease access to med. care, senior care, rehab)? @ -No Was there de-escalation of care discussed even if they declined (Discuss DNR or withdrawal of care, Hospice)? DNR status @ -No What co-morbidities impacted this encounter? (DM, HTN, Smoking, COPD, CAD, Cancer, CVA, ARF, Chemo, Hep., AIDS, mental health diagnosis, sleep apnea, morbid obesity)? @ -Diabetes Was patient admitted / discharged? Hospital course, mention meds given and route, prescriptions, significant lab abnormalities, going to OR and other pert inent info. @ -Patient presents complaining of hyperglycemia, mild cough, as well as alcohol intoxication. BAT is 0 upon presentation but we will obtain alcohol level and general labs considering his diabetic history. He is given 1 L fluid bolus. Patient is in agreement this plan. Vitals are within acceptable limits. EKG showed no signs of acute ischemia. Chest x-ray shows no obvious acute cardiopulmonary process.Patient's labs returned within acceptable limits. He will be discharged home at this time. Patient was in agreement this plan. Patient's labs all returned within acceptable limits except for mild hypomagnesemia. Patient is not intoxicated with alcohol. Blood sugar is 187. On reevaluation I discussed with the patient his negative workup. He is asking to be transferred for his alcohol abuse to a rehab facility and I informed him that is not something that is done out of the emergency department. He has no indication for admission. He will be discharged at this time. He can separately reach out to [place] or other rehab and he was in agreement this plan. I instructed the patient to follow up with their PCP in the next 1-3 days. I explained that the patient should return to the emergency department if they experience any worsening symptoms. Strict return precautions were discussed with the patient. The patient expressed understanding of these instructions. I answered all questions that the patient had. The patient was discharged home in good condition with their prescriptions and follow up information. Undiagnosed new problem with uncertain prognosis? @ -No Drug Therapy requiring intensive monitoring for toxicity (Heparin, Nitro, Insulin, Cardizem)? @ -No Were any procedures done? @ -No Diagnosis/symptom? @ -Hyperglycemia Acute, or Chronic, or Acute on Chronic? @ -Acute Uncomplicated (without systemic symptoms) or Complicated (systemic symptoms)? @ -Uncomplicated Side effects of treatment? @ -None Exacerbation, Progression, or Severe Exacerbation] @ -No Poses a threat to life or bodily function? @ -Unlikely at this time - Lab Data Result diagrams: 01/16/25 13:47 01/16/25 13:47 Lab Results 01/16/25 01/16/25 01/16/25 Range/Units 13:25 13:47 13:47 WBC 7.72 (4.50-10.00) 10*3/uL RBC 4.31 L (4.40-5.60) 10*6/uL Hgb 13.4 (13.0-17.0) g/dL Hct 36.9 L (39.6-50.0) % MCV 85.6 (80.0-97.0) fL MCH 31.1 (27.0-32.0) pg MCHC 36.3 (32.0-37.0) g/dL Plt Count 198 (140-440) 10*3/uL MPV 10.1 (9.5-12.2) fL Immature Gran % (Auto) 1.6 % Neutrophils % 72.5 % Lymphocytes % 16.5 % Monocytes % 5.3 % Eosinophils % 3.8 % Basophils % 0.3 % Immature Gran # 0.12 H (0.00-0.04) 10*3/uL Neutrophils # 5.61 (1.80-7.70) 10*3/uL Lymphocytes # 1.27 (0.90-5.00) 10*3/uL Monocytes # 0.41 (0.20-1.00) 10*3/uL Eosinophils # 0.29 (0.04-0.35) 10*3/uL Basophils # 0.02 (0.00-0.10) 10*3/uL Sodium 140 (137-145) mmol/L Potassium 3.9 (3.5-5.1) mmol/L Chloride 108 H (98-107) mmol/L Carbon Dioxide 21 L (22-30) mmol/L Anion Gap 11 mmol/L BUN 9 (9-20) mg/dL Creatinine 0.59 L (0.66-1.25) mg/dL Est GFR (CKD-EPI)AfAm >90 (>60 ml/min/1.73 sqM) Est GFR (CKD-EPI)NonAf >90 (>60 ml/min/1.73 sqM) Glucose 187 H (74-99) mg/dL POC Glucose (mg/dL) 244 H (70-110) mg/dL POC Glu Ware Tester ID Brent Corrigan Calcium 9.6 (8.4-10.2) mg/dL Magnesium 1.5 L (1.6-2.3) mg/dL Total Bilirubin 0.5 (0.2-1.3) mg/dL AST 33 (17-59) U/L ALT 44 (4-49) U/L Alkaline Phosphatase 75 (38-126) U/L Total Protein 6.0 L (6.3-8.2) g/dL Albumin 3.9 (3.5-5.0) g/dL Urine Color Urine Appearance (Clear) Urine pH (5.0-8.0) Ur Specific [place] (1.001-1.035) Urine Protein (Negative) Urine Glucose (UA) (Negative) Urine Ketones (Negative) Urine Blood (Negative) Urine Nitrite (Negative) Urine Bilirubin (Negative) Urine Urobilinogen (<2.0) mg/dL Ur Leukocyte Esterase (Negative) Serum Alcohol <10 mg/dL 01/16/25 Range/Units 13:53 WBC (4.50-10.00) 10*3/uL RBC (4.40-5.60) 10*6/uL Hgb (13.0-17.0) g/dL Hct (39.6-50.0) % MCV (80.0-97.0) fL MCH (27.0-32.0) pg MCHC (32.0-37.0) g/dL Plt Count (140-440) 10*3/uL MPV (9.5-12.2) fL Immature Gran % (Auto) % Neutrophils % % Lymphocytes % % Monocytes % % Eosinophils % % Basophils % % Immature Gran # (0.00-0.04) 10*3/uL Neutrophils # (1.80-7.70) 10*3/uL Lymphocytes # (0.90-5.00) 10*3/uL Monocytes # (0.20-1.00) 10*3/uL Eosinophils # (0.04-0.35) 10*3/uL Basophils # (0.00-0.10) 10*3/uL Sodium (137-145) mmol/L Potassium (3.5-5.1) mmol/L Chloride (98-107) mmol/L Carbon Dioxide (22-30) mmol/L Anion Gap mmol/L BUN (9-20) mg/dL Creatinine (0.66-1.25) mg/dL Est GFR (CKD-EPI)AfAm (>60 ml/min/1.73 sqM) Est GFR (CKD-EPI)NonAf (>60 ml/min/1.73 sqM) Glucose (74-99) mg/dL POC Glucose (mg/dL) (70-110) mg/dL POC Glu Ware Tester ID Calcium (8.4-10.2) mg/dL Magnesium (1.6-2.3) mg/dL Total Bilirubin (0.2-1.3) mg/dL AST (17-59) U/L ALT (4-49) U/L Alkaline Phosphatase (38-126) U/L Total Protein (6.3-8.2) g/dL Albumin (3.5-5.0) g/dL Urine Color Colorless Urine Appearance Clear (Clear) Urine pH 6.5 (5.0-8.0) Ur Specific [place] 1.004 (1.001-1.035) Urine Protein Negative (Negative) Urine Glucose (UA) 3+ H (Negative) Urine Ketones Negative (Negative) Urine Blood Negative (Negative) Urine Nitrite Negative (Negative) Urine Bilirubin Negative (Negative) Urine Urobilinogen <2.0 (<2.0) mg/dL Ur Leukocyte Esterase Negative (Negative) Serum Alcohol mg/dL - EKG Data -: EKG Interpreted by Me EKG Comments: 12-lead Electrocardiogram Interpretation Note EKG was reviewed and interpreted by myself. 12-lead ECG performed at 1400 is interpreted by me as revealing normal sinus rhythm at a rate of 62 beats per minute. [place] is normal. VT interval is 159 ms, QRS durations 106 ms, QTc is 444 ms.. There were no ST or T wave abnormalities to suggest myocardial ischemia or injury. R wave progression across the precordium was satisfactory. By my interpretation this EKG is non-diagnostic for acute ischemia. Disposition Clinical Impression: Hyperglycemia Disposition: HOME SELF-CARE Condition: Good Instructions (If sedation given, give patient instructions): Diabetic Hyperglycemia (ED) Additional Instructions: Monitor your blood sugars at home. Return to the ER if any worsening symptoms. Is patient prescribed a controlled substance at d/c from ED?: No Referrals: Domo Castro III, MD [Primary Care Provider] - 1-2 days Time of Disposition: 15:25
[2025-01-16] MEDS: SODIUM CHLORIDE 0.9% 1,000 ML IV SCH (13:51)
[2025-01-16] MEDS: ONDANSETRON 4 MG/2 ML VIAL IVP STA (13:51)
--- NOTE | 2025-01-16 14:31 | XR ---
EXAMINATION TYPE: XR chest 1V portable DATE OF EXAM: 01/16/2025 2:07 PM COMPARISON: 12/10/2024 CLINICAL INDICATION: Male, 54 years old with history of cough, TECHNIQUE: XR chest 1V portable view(s) obtained. FINDINGS: The heart size is normal. The pulmonary vasculature is normal. The lungs are clear. IMPRESSION: 1. No acute pulmonary process. [facility], Workstation: [facility], 01/16/2025 2:29 PM
[2025-01-16] MEDS: SODIUM CHLORIDE 0.9% 1,000 ML IV ONE (14:40)
[2025-01-16 14:44] LABS: Basophils # (A) 0.02 10*3/uL (0.00-0.10); Basophils % (A) 0.3 %; Eosinophils # (A) 0.29 10*3/uL (0.04-0.35); Eosinophils % (A) 3.8 %; HCT 36.9 % (39.6-50.0); HGB 13.4 g/dL (13.0-17.0); Lymphocytes # (A) 1.27 10*3/uL (0.90-5.00); Lymphocytes % (A) 16.5 %; MCH 31.1 pg (27.0-32.0); MCHC 36.3 g/dL (32.0-37.0); MCV 85.6 fL (80.0-97.0); Monocytes # (A) 0.41 10*3/uL (0.20-1.00); Monocytes % (A) 5.3 %; Neutrophils # (A) 5.61 10*3/uL (1.80-7.70); Neutrophils % (A) 72.5 %; Platelet Count 198 10*3/uL (140-440); RBC 4.31 10*6/uL (4.40-5.60); RDW 13.2 % (11.5-14.5); WBC 7.72 10*3/uL (4.50-10.00)
[2025-01-16 14:45] LABS: Color,Urine Colorless
[2025-01-16 14:46] LABS: Bilirubin,Urine Negative (Negative); Blood,Urine Negative (Negative); Glucose,Urine (UA) 3+ (Negative); Ketones,Urine Negative (Negative); Leukocyte Esterase,Urine Negative (Negative); Nitrite,Urine Negative (Negative); PH, Urine 6.5 (5.0-8.0); Protein,Urine Negative (Negative); Specific Gravity,Urine 1.004 (1.001-1.035); Urobilinogen,Urine <2.0 mg/dL (<2.0)
[2025-01-16 15:03] LABS: ALT 44 U/L (4-49); African American GFR (CKD) >90 (>60 ml/min/1.73 sqM); Albumin 3.9 g/dL (3.5-5.0); Anion Gap 11 mmol/L; Blood Urea Nitrogen 9 mg/dL (9-20); Calcium 9.6 mg/dL (8.4-10.2); Carbon Dioxide 21 mmol/L (22-30); Chloride 108 mmol/L (98-107); Glucose 187 mg/dL (74-99); Non-African American GFR(CKD) >90 (>60 ml/min/1.73 sqM); Sodium 140 mmol/L (137-145); Total Protein 6.0 g/dL (6.3-8.2)
[2025-01-16 15:23] LABS: AST 33 U/L (17-59); Alkaline Phosphatase 75 U/L (38-126); Magnesium 1.5 mg/dL (1.6-2.3); Potassium 3.9 mmol/L (3.5-5.1)
[2025-01-16] MEDS: MAGNESIUM OXIDE 400 MG TAB PO STA (15:36)
[2025-01-16 15:42] VITALS: BP 123/98; PULSE 67; RESP 18
[2025-01-16 16:04] LABS: RSV Not Detected (Not Detectd)
== END 2025-01-16 15:43 | disposition home or self-care (01) ==
LOC: EC 13:12 → SUPCPDRO 13:12 → EC 15:43
DX: E11.65 Type 2 diabetes mellitus with hyperglycemia (principal); F17.200 Nicotine dependence, unspecified, uncomplicated; Z86.73 Personal history of transient ischemic attack (TIA), and cerebral infarction without residual deficits; Z88.0 Allergy status to penicillin; Z88.1 Allergy status to other antibiotic agents; Z83.3 Family history of diabetes mellitus; Z88.2 Allergy status to sulfonamides; Z88.8 Allergy status to other drugs, medicaments and biological substances; Z91.040 Latex allergy status
CPT/HCPCS: 82075; 36415; 93005; 80053; 82009; 83735; 85025; 81003; 87636; 71045; 99284; 96374; 96361; G0480; J2405; 80320

== ENCOUNTER 2025-01-18 12:37 | Emergency (ER) | payer MEDICARE, OTHER ==
[2025-01-18] MEDS: SODIUM CHLORIDE 0.9% 1,000 ML IV SCH (14:27)
[2025-01-18] MEDS: ONDANSETRON 4 MG/2 ML VIAL IVP STA (14:28)
[2025-01-18 14:29] LABS: Basophils # (A) 0.01 10*3/uL (0.00-0.10); Basophils % (A) 0.1 %; Eosinophils # (A) 0.18 10*3/uL (0.04-0.35); Eosinophils % (A) 2.5 %; HCT 41.4 % (39.6-50.0); HGB 14.6 g/dL (13.0-17.0); Lymphocytes # (A) 1.16 10*3/uL (0.90-5.00); Lymphocytes % (A) 16.3 %; MCH 30.2 pg (27.0-32.0); MCHC 35.3 g/dL (32.0-37.0); MCV 85.5 fL (80.0-97.0); Monocytes # (A) 0.45 10*3/uL (0.20-1.00); Monocytes % (A) 6.3 %; Neutrophils # (A) 5.25 10*3/uL (1.80-7.70); Neutrophils % (A) 73.7 %; Platelet Count 203 10*3/uL (140-440); RBC 4.84 10*6/uL (4.40-5.60); RDW 13.2 % (11.5-14.5); WBC 7.13 10*3/uL (4.50-10.00)
[2025-01-18] MEDS: KETOROLAC 15 MG/ML 1 ML VIAL IVP STA (14:29)
[2025-01-18] MEDS: ACETAMINOPHEN TAB 500 MG TAB PO STA (14:30)
[2025-01-18] MEDS: ORPHENADRINE 30 MG/ML 2 ML VIAL IVP STA (14:31)
--- NOTE | 2025-01-18 14:32 | ED ---
Dizziness HPI - General Chief Complaint: Dizziness Stated Complaint: Pain All Over Time Seen by Provider: 01/18/25 13:50 Source: patient, RN notes reviewed Mode of arrival: ambulatory Limitations: no limitations - History of Present Illness Initial Comments: This is a 54-year-old male who presents to the emergency department for pain all over and dizziness. States that it started yesterday. He states that his whole body hurts and he is unable to eat or drink anything. States that he feels lightheaded. Patient is well-known to this emergency department for similar concerns as well as a multitude of other complaints. MD Complaint: dizziness, lightheadedness - Related Data Home Medications Medication Instructions Recorded Confirmed Albuterol Inhaler [Ventolin Hfa 2 puff INHALATION RT-Q6H PRN 01/03/25 01/03/25 Inhaler] Previous Rx's Medication Instructions Recorded ARIPiprazole IM SYRINGE [Abilify 400 mg IM Q28D #1 each 01/08/25 Maintena Syringe] Acetaminophen Tab [Tylenol] 650 mg PO Q4HR PRN tab 01/08/25 Aspirin EC [Ecotrin Low Dose] 81 mg PO DAILY 30 Days #30 tab 01/08/25 Atorvastatin [Lipitor] 40 mg PO HS 30 Days #30 tab 01/08/25 Budesonide/Formoterol Fumarate 2 puff INHALATION RT-BID 30 Days 01/08/25 [Symbicort 80-4.5 Mcg Inhaler] #1 each Cetirizine HCl [Zyrtec] 10 mg PO DAILY 30 Days #30 tab 01/08/25 Citalopram Hydrobromide [CeleXA] 40 mg PO DAILY 30 Days #30 tab 01/08/25 INSULIN LISPRO (HumaLOG) [HumaLOG] 0 unit SQ ACHS each 01/08/25 Insulin Glargine,Hum.rec.anlog 20 unit SQ HS 30 Days #1 each 01/08/25 [Insulin Glargine Solostar] Montelukast [Singulair] 10 mg PO DAILY 30 Days #30 tab 01/08/25 Naproxen [EC-Naprosyn] 500 mg PO BID PRN 30 Days #60 tab 01/08/25 Nicotine Gum (Polacrilex) 2 mg BUCCAL Q6HR PRN 30 Days #180 01/08/25 [Nicorette] pieceofgum Omeprazole [PriLOSEC] 40 mg PO BID 30 Days #60 cap 01/08/25 QUEtiapine [SEROquel] 200 mg PO HS 30 Days #30 tab 01/08/25 Tamsulosin [Flomax] 0.4 mg PO BID 30 Days #60 cap 01/08/25 glipiZIDE 2.5 mg PO DAILY 30 Days #30 tab 01/08/25 metFORMIN HCL ER [Glucophage XR] 500 mg PO BID 30 Days #60 tab 01/08/25 traZODone HCL 100 mg PO HS PRN 30 Days #30 tab 01/08/25 Ondansetron [Zofran] 4 mg PO Q8HR PRN #6 tab 01/11/25 Allergies Allergy/AdvReac Type Severity Reaction Status Date / Time dicyclomine HCl [From Bentyl] Allergy Unknown Dyspnea Verified 01/18/25 12:53 latex Allergy Unknown Rash/Hives Verified 01/18/25 12:53 Benzoate Analogues Allergy Unknown Verified 01/18/25 12:53 benzonatate Allergy Unknown Verified 01/18/25 12:53 nitrofurantoin Allergy Nausea Verified 01/18/25 12:53 [From Macrobid] Penicillins Allergy "[place] Verified 01/18/25 12:53 funny" adhesive AdvReac Unknown Itching Verified 01/18/25 12:53 ciprofloxacin AdvReac Unknown Nausea Verified 01/18/25 12:53 Macrolide Antibiotics AdvReac Unknown Nausea Verified 01/18/25 12:53 sulfamethoxazole AdvReac Unknown Unknown Verified 01/18/25 12:53 [From Bactrim] trimethoprim [From Bactrim] AdvReac Unknown Unknown Verified 01/18/25 12:53 diphenhydramine AdvReac Confusion Verified 01/18/25 12:53 [From Benadryl] trazodone AdvReac Swelling Verified 01/18/25 12:53 Review of Systems ROS Statement: Those systems with pertinent positive or pertinent negative responses have been documented in the HPI. ROS Other: All systems not noted in ROS Statement are negative. Past Medical History Past Medical History: Asthma, Chest Pain / Angina, COPD, CVA/TIA, Diabetes Mellitus, GERD/Reflux, Hearing Disorder / Deafness, Hyperlipidemia, Hypertension, Liver Disease, Osteoarthritis (OA), Pneumonia, Seizure Disorder, Sleep Apnea/CPAP/BIPAP Additional Past Medical History / Comment(s): states CVA at 35 yrs old, no weakness @ this time. states seizure at 35 yrs old., DDD- back & neck pain., carpal tunnel syndrome. Has SCS public guardian. History of Any Multi-Drug Resistant Organisms: None Reported, Other MDRO Past Surgical History: Heart Catheterization, Orthopedic Surgery Additional Past Surgical History / Comment(s): Cysts removed, left thumb surgery, colonoscopy 08/24/2019. Skin tags removed from both eyes. Past Anesthesia/Blood Transfusion Reactions: Motion Sickness, Postoperative Nausea & Vomiting (PONV) Past Psychological History: Anxiety, Bipolar, Depression Smoking Status: Current every day smoker Past Alcohol Use History: Abuse Past Drug Use History: None Reported - Past Family History Brother(s) Family Medical History: Diabetes Mellitus Additional Family Medical History / Comment(s): Patient has 2 brothers. One from complications from diabetes. The second is alive with diabetes. Sister(s) Family Medical History: Cancer Additional Family Medical History / Comment(s): Patient has one sister with breast cancer. Patient does not have any children. Father Family Medical History: Cancer Additional Family Medical History / Comment(s): Father in his 40s or 50s from colon cancer. Mother Family Medical History: Cancer Additional Family Medical History / Comment(s): Mother at age 68 from lung cancer. General Exam Limitations: no limitations General appearance: alert, in no apparent distress Head exam: Present: atraumatic, normocephalic, normal inspection Respiratory exam: Present: normal lung sounds bilaterally. Absent: respiratory distress, wheezes, rales, rhonchi, stridor Cardiovascular Exam: Present: regular rate, normal rhythm GI/Abdominal exam: Present: soft. Absent: distended, tenderness Neurological exam: Present: alert, oriented X3, CN II-XII intact Psychiatric exam: Present: normal affect, normal mood Skin exam: Present: warm, dry, intact, normal color. Absent: rash Course Vital Signs 01/18/25 01/18/25 01/18/25 12:51 15:16 16:36 Temperature 98.3 F 98.1 F Pulse Rate 66 52 L 53 L Respiratory 18 18 16 Rate Blood Pressure 114/75 121/85 115/85 O2 Sat by Pulse 97 100 98 Oximetry Medical Decision Making - Medical Decision Making This is a 54-year-old male who presents to the emergency department for dizziness. Was pt. sent in by a medical professional or institution? @ -No Did you speak to anyone other than the patient for history? @ -No Did you review nursing and triage notes? @ -Yes, and I agree, it is accurate with regards to the patient's symptoms. Were old charts reviewed? @ -No Differential Diagnosis? @ -Differential Dizziness: Benign paroxysmal positional Vertigo, Meniere's disease, otitis media, acoustic neuroma, vertebrobasilar insufficiency, cerebellar stroke, encephalitis, hypovolemic, arrhythmia, coronary artery syndrome, anemia, this is not meant to be an all-inclusive list EKG interpreted by me (3pts min.)? @ -Not obtained X-rays interpreted by me (1pt min.)? @ -Not obtained CT interpreted by me (1pt min.)? @ -Not obtained U/S interpreted by me (1pt. min.)? @ -Not obtained What testing was considered but not performed? (CT, X-rays, U/S, labs)? Why? @ -None What meds were considered but not given? Why? @ -None Did you discuss the management of the patient with other professionals? @ -No Did you reconcile home meds? @ -No Was smoking cessation discussed for >3mins.? @ -I discussed smoking cessation for greater than 3 minutes. The risk of smoking were discussed with the patient including but not limited to risks of cancer, stroke, coronary artery disease and COPD. Also discussed with patient were multiple methods of quitting smoking. Lastly we discussed the financial cost of smoking. Was critical care preformed (if so, how long)? @ -No Were there social determinants of health that impacted care today? How? (Homelessness, low income, unemployed, alcoholism, drug addiction, transportation, low edu. Level, literacy, decrease access to med. care, care home, rehab)? @ -No Was there de-escalation of care discussed even if they declined? (Discuss DNR or withdrawal of care, Hospice)? @ -No What co-morbidities impacted this encounter? (DM, HTN, Smoking, COPD, CAD, Cancer, CVA, Hep., AIDS, mental health diagnosis, sleep apnea, morbid obesity)? @ -DM, smoking Was patient admitted / discharged? @ -Discharged. Lab work unremarkable. Urinalysis negative for signs of infection. Symptoms treated in the emergency department. Patient discharged home in stable condition. Case discussed with ED attending Dr. Galo. Undiagnosed new problem with uncertain prognosis? @ -None Drug Therapy requiring intensive monitoring for toxicity (Heparin, Nitro, Insulin, Cardizem)? @ -None Were any procedures done? @ -None Diagnosis/symptom? @ -Dizziness, pain all over Acute, or Chronic, or Acute on Chronic? @ -Acute Uncomplicated (without systemic symptoms) or Complicated (systemic symptoms)? @ -Uncomplicated Side effects of treatment? @ -None Exacerbation, Progression, or Severe Exacerbation] @ -Not applicable Poses a threat to life or bodily function? @ -No - Lab Data Result diagrams: 01/18/25 14:10 01/18/25 14:10 Lab Results 01/18/25 01/18/25 01/18/25 Range/Units 14:10 14:10 15:15 WBC 7.13 (4.50-10.00) 10*3/uL RBC 4.84 (4.40-5.60) 10*6/uL Hgb 14.6 (13.0-17.0) g/dL Hct 41.4 (39.6-50.0) % MCV 85.5 (80.0-97.0) fL MCH 30.2 (27.0-32.0) pg MCHC 35.3 (32.0-37.0) g/dL Plt Count 203 (140-440) 10*3/uL MPV 9.6 (9.5-12.2) fL Immature Gran % (Auto) 1.1 % Neutrophils % 73.7 % Lymphocytes % 16.3 % Monocytes % 6.3 % Eosinophils % 2.5 % Basophils % 0.1 % Immature Gran # 0.08 H (0.00-0.04) 10*3/uL Neutrophils # 5.25 (1.80-7.70) 10*3/uL Lymphocytes # 1.16 (0.90-5.00) 10*3/uL Monocytes # 0.45 (0.20-1.00) 10*3/uL Eosinophils # 0.18 (0.04-0.35) 10*3/uL Basophils # 0.01 (0.00-0.10) 10*3/uL Sodium 139 (137-145) mmol/L Potassium 3.8 (3.5-5.1) mmol/L Chloride 106 (98-107) mmol/L Carbon Dioxide 23 (22-30) mmol/L Anion Gap 10 mmol/L BUN 16 (9-20) mg/dL Creatinine 0.59 L (0.66-1.25) mg/dL Est GFR (CKD-EPI)AfAm >90 (>60 ml/min/1.73 sqM) Est GFR (CKD-EPI)NonAf >90 (>60 ml/min/1.73 sqM) Glucose 105 H (74-99) mg/dL Calcium 9.8 (8.4-10.2) mg/dL Magnesium 1.7 (1.6-2.3) mg/dL Total Bilirubin 0.5 (0.2-1.3) mg/dL AST 38 (17-59) U/L ALT 61 H (4-49) U/L Alkaline Phosphatase 78 (38-126) U/L Total Protein 6.4 (6.3-8.2) g/dL Albumin 4.1 (3.5-5.0) g/dL Urine Color Light Yellow Urine Appearance Clear (Clear) Urine pH 7.5 (5.0-8.0) Ur Specific [place] 1.018 (1.001-1.035) Urine Protein Negative (Negative) Urine Glucose (UA) Negative (Negative) Urine Ketones Negative (Negative) Urine Blood Negative (Negative) Urine Nitrite Negative (Negative) Urine Bilirubin Negative (Negative) Urine Urobilinogen <2.0 (<2.0) mg/dL Ur Leukocyte Esterase Small H (Negative) Urine RBC <1 (0-5) /hpf Urine WBC 5 (0-5) /hpf Ur Squamous Epith Cells <1 (0-4) /hpf Urine Mucus Rare H (None) /hpf Disposition Clinical Impression: Dizziness, Pain, Nicotine dependence Disposition: HOME SELF-CARE Instructions (If sedation given, give patient instructions): Dizziness (ED) Additional Instructions: Return to the emergency department with any new, worsening, or concerning symptoms. Follow up with your primary care provider in 1-2 days. Is patient prescribed a controlled substance at d/c from ED?: No Referrals: Domo Castro III, MD [Primary Care Provider] - 1-2 days Time of Disposition: 16:03
[2025-01-18 15:00] LABS: ALT 61 U/L (4-49); AST 38 U/L (17-59); African American GFR (CKD) >90 (>60 ml/min/1.73 sqM); Albumin 4.1 g/dL (3.5-5.0); Alkaline Phosphatase 78 U/L (38-126); Anion Gap 10 mmol/L; Blood Urea Nitrogen 16 mg/dL (9-20); Calcium 9.8 mg/dL (8.4-10.2); Carbon Dioxide 23 mmol/L (22-30); Chloride 106 mmol/L (98-107); Glucose 105 mg/dL (74-99); Magnesium 1.7 mg/dL (1.6-2.3); Non-African American GFR(CKD) >90 (>60 ml/min/1.73 sqM); Potassium 3.8 mmol/L (3.5-5.1); Sodium 139 mmol/L (137-145); Total Protein 6.4 g/dL (6.3-8.2)
[2025-01-18] MEDS: PROCHLORPERAZINE INJ 10 MG/2 ML VIAL IVP STA (15:53)
[2025-01-18 15:56] LABS: Bilirubin,Urine Negative (Negative); Blood,Urine Negative (Negative); Color,Urine Light Yellow; Glucose,Urine (UA) Negative (Negative); Ketones,Urine Negative (Negative); Leukocyte Esterase,Urine Small (Negative); Mucus,Urine Rare /hpf; Nitrite,Urine Negative (Negative); PH, Urine 7.5 (5.0-8.0); Protein,Urine Negative (Negative); RBC,Urine <1 /hpf (0-5); Specific Gravity,Urine 1.018 (1.001-1.035); Squamous Epithelial Cell,Urine <1 /hpf (0-4); Urobilinogen,Urine <2.0 mg/dL (<2.0); WBC,Urine 5 /hpf (0-5)
[2025-01-18] MEDS: ONDANSETRON 4 MG ODT STARTER PACK TAB BTL PO STA (16:20)
[2025-01-18] MEDS: ACET/COD 300 MG/30 MG STARTER PACK TAB BTL PO STA (16:20)
[2025-01-18 16:38] VITALS: BP 115/85; PULSE 53; RESP 16; TEMP 98.1
== END 2025-01-18 16:39 | disposition home or self-care (01) ==
LOC: EC 12:37
DX: R42 Dizziness and giddiness (principal); E11.9 Type 2 diabetes mellitus without complications; Z83.3 Family history of diabetes mellitus; F17.200 Nicotine dependence, unspecified, uncomplicated; Z88.0 Allergy status to penicillin; Z88.1 Allergy status to other antibiotic agents; Z88.2 Allergy status to sulfonamides; Z91.09 Other allergy status, other than to drugs and biological substances; Z91.040 Latex allergy status; Z88.8 Allergy status to other drugs, medicaments and biological substances
CPT/HCPCS: 36415; 80053; 83735; 85025; 81001; 99284; 96374; 96375; 96361; J0780; J2360; J2405; J1885; S0119

== ENCOUNTER 2025-01-20 23:22 | Emergency (ER) | payer MEDICARE, OTHER ==
[2025-01-20 23:47] VITALS: RESP 17; TEMP 98.8
[2025-01-21] MEDS: SODIUM CHLORIDE 0.9% 1,000 ML IV ONE (01:15)
[2025-01-21] MEDS: ONDANSETRON 4 MG/2 ML VIAL IVP STA ×2 (01:16→03:25)
[2025-01-21] MEDS: KETOROLAC 15 MG/ML 1 ML VIAL IVP STA (01:18)
[2025-01-21 02:13] LABS: ALT 39 U/L (4-49); AST 31 U/L (17-59); African American GFR (CKD) >90 (>60 ml/min/1.73 sqM); Albumin 3.8 g/dL (3.5-5.0); Alkaline Phosphatase 112 U/L (38-126); Anion Gap 8 mmol/L; Blood Urea Nitrogen 15 mg/dL (9-20); Calcium 8.7 mg/dL (8.4-10.2); Carbon Dioxide 22 mmol/L (22-30); Chloride 107 mmol/L (98-107); Glucose 194 mg/dL (74-99); Non-African American GFR(CKD) >90 (>60 ml/min/1.73 sqM); Potassium 4.4 mmol/L (3.5-5.1); Sodium 137 mmol/L (137-145); Total Protein 5.8 g/dL (6.3-8.2)
[2025-01-21 02:16] LABS: Basophils # (A) 0.01 10*3/uL (0.00-0.10); Basophils % (A) 0.2 %; Eosinophils # (A) 0.28 10*3/uL (0.04-0.35); Eosinophils % (A) 5.2 %; HCT 39.0 % (39.6-50.0); HGB 13.8 g/dL (13.0-17.0); Immature Platelet Fraction 2.9 % (1.1-6.1); Lymphocytes # (A) 1.06 10*3/uL (0.90-5.00); Lymphocytes % (A) 19.6 %; MCH 30.6 pg (27.0-32.0); MCHC 35.4 g/dL (32.0-37.0); MCV 86.5 fL (80.0-97.0); Monocytes # (A) 0.40 10*3/uL (0.20-1.00); Monocytes % (A) 7.4 %; Neutrophils # (A) 3.61 10*3/uL (1.80-7.70); Neutrophils % (A) 66.9 %; RBC 4.51 10*6/uL (4.40-5.60); RDW 13.2 % (11.5-14.5); WBC 5.40 10*3/uL (4.50-10.00)
[2025-01-21 02:18] LABS: Platelet Count 139 10*3/uL (140-440)
--- NOTE | 2025-01-21 02:36 | ED ---
General Adult HPI - General Chief complaint: Nausea/Vomiting/Diarrhea Stated complaint: abd pain Time Seen by Provider: 01/20/25 23:24 Source: patient, EMS, RN notes reviewed (Hematuria) Mode of arrival: EMS Limitations: no limitations - History of Present Illness Initial comments: 54-year-old male well-known to our emergency department presents to the emergency department for generalized not feeling well. Patient reports that over the past 2 weeks he has noticed not been feeling well. Notes nausea and vomiting and abdominal discomfort. He notes that his blood sugars have been elevated. He has been taking his medications as prescribed. He denies any recent fever, chills. He notes normal bowel movements and urinary habits. - Related Data Home Medications Medication Instructions Recorded Confirmed Albuterol Inhaler [Ventolin Hfa 2 puff INHALATION RT-Q6H PRN 01/03/25 01/03/25 Inhaler] Previous Rx's Medication Instructions Recorded ARIPiprazole IM SYRINGE [Abilify 400 mg IM Q28D #1 each 01/08/25 Maintena Syringe] Acetaminophen Tab [Tylenol] 650 mg PO Q4HR PRN tab 01/08/25 Aspirin EC [Ecotrin Low Dose] 81 mg PO DAILY 30 Days #30 tab 01/08/25 Atorvastatin [Lipitor] 40 mg PO HS 30 Days #30 tab 01/08/25 Budesonide/Formoterol Fumarate 2 puff INHALATION RT-BID 30 Days 01/08/25 [Symbicort 80-4.5 Mcg Inhaler] #1 each Cetirizine HCl [Zyrtec] 10 mg PO DAILY 30 Days #30 tab 01/08/25 Citalopram Hydrobromide [CeleXA] 40 mg PO DAILY 30 Days #30 tab 01/08/25 INSULIN LISPRO (HumaLOG) [HumaLOG] 0 unit SQ ACHS each 01/08/25 Insulin Glargine,Hum.rec.anlog 20 unit SQ HS 30 Days #1 each 01/08/25 [Insulin Glargine Solostar] Montelukast [Singulair] 10 mg PO DAILY 30 Days #30 tab 01/08/25 Naproxen [EC-Naprosyn] 500 mg PO BID PRN 30 Days #60 tab 01/08/25 Nicotine Gum (Polacrilex) 2 mg BUCCAL Q6HR PRN 30 Days #180 01/08/25 [Nicorette] pieceofgum Omeprazole [PriLOSEC] 40 mg PO BID 30 Days #60 cap 01/08/25 QUEtiapine [SEROquel] 200 mg PO HS 30 Days #30 tab 01/08/25 Tamsulosin [Flomax] 0.4 mg PO BID 30 Days #60 cap 01/08/25 glipiZIDE 2.5 mg PO DAILY 30 Days #30 tab 01/08/25 metFORMIN HCL ER [Glucophage XR] 500 mg PO BID 30 Days #60 tab 01/08/25 traZODone HCL 100 mg PO HS PRN 30 Days #30 tab 01/08/25 Ondansetron [Zofran] 4 mg PO Q8HR PRN #6 tab 01/11/25 Allergies Allergy/AdvReac Type Severity Reaction Status Date / Time dicyclomine HCl [From Bentyl] Allergy Unknown Dyspnea Verified 01/24/25 11:05 latex Allergy Unknown Rash/Hives Verified 01/24/25 11:05 Benzoate Analogues Allergy Unknown Verified 01/24/25 11:05 benzonatate Allergy Unknown Verified 01/24/25 11:05 nitrofurantoin Allergy Nausea Verified 01/24/25 11:05 [From Macrobid] Penicillins Allergy "[place] Verified 01/24/25 11:05 funny" adhesive AdvReac Unknown Itching Verified 01/24/25 11:05 ciprofloxacin AdvReac Unknown Nausea Verified 01/24/25 11:05 Macrolide Antibiotics AdvReac Unknown Nausea Verified 01/24/25 11:05 sulfamethoxazole AdvReac Unknown Unknown Verified 01/24/25 11:05 [From Bactrim] trimethoprim [From Bactrim] AdvReac Unknown Unknown Verified 01/24/25 11:05 diphenhydramine AdvReac Confusion Verified 01/24/25 11:05 [From Benadryl] trazodone AdvReac Swelling Verified 01/24/25 11:05 Review of Systems ROS Statement: Those systems with pertinent positive or pertinent negative responses have been documented in the HPI. ROS Other: All systems not noted in ROS Statement are negative. Past Medical History Past Medical History: Asthma, Chest Pain / Angina, COPD, CVA/TIA, Diabetes Mellitus, GERD/Reflux, Hearing Disorder / Deafness, Hyperlipidemia, Hypertension, Liver Disease, Osteoarthritis (OA), Pneumonia, Seizure Disorder, Sleep Apnea/CPAP/BIPAP Additional Past Medical History / Comment(s): states CVA at 35 yrs old, no weakness @ this time. states seizure at 35 yrs old., DDD- back & neck pain., carpal tunnel syndrome. Has [employer] public guardian. Cyst on spleen. History of Any Multi-Drug Resistant Organisms: None Reported, Other MDRO Past Surgical History: Heart Catheterization, Orthopedic Surgery Additional Past Surgical History / Comment(s): Cysts removed, left thumb surgery, colonoscopy 08/24/2019. Skin tags removed from both eyes. Past Anesthesia/Blood Transfusion Reactions: Motion Sickness, Postoperative Nausea & Vomiting (PONV) Past Psychological History: Anxiety, Bipolar, Depression Smoking Status: Current every day smoker Past Alcohol Use History: Abuse Past Drug Use History: None Reported - Past Family History Brother(s) Family Medical History: Diabetes Mellitus Additional Family Medical History / Comment(s): Patient has 2 brothers. One from complications from diabetes. The second is alive with diabetes. Sister(s) Family Medical History: Cancer Additional Family Medical History / Comment(s): Patient has one sister with breast cancer. Patient does not have any children. Father Family Medical History: Cancer Additional Family Medical History / Comment(s): Father in his 40s or 50s from colon cancer. Mother Family Medical History: Cancer Additional Family Medical History / Comment(s): Mother at age 68 from lung cancer. General Exam Limitations: no limitations General appearance: alert, in no apparent distress Head exam: Present: atraumatic, normocephalic, normal inspection Eye exam: Present: normal appearance, PERRL, EOMI. Absent: scleral icterus, conjunctival injection, periorbital swelling ENT exam: Present: normal exam, mucous membranes moist Neck exam: Present: normal inspection. Absent: tenderness, meningismus, lymphadenopathy Respiratory exam: Present: normal lung sounds bilaterally. Absent: respiratory distress, wheezes, rales, rhonchi, stridor Cardiovascular Exam: Present: regular rate, normal rhythm, normal heart sounds. Absent: systolic murmur, diastolic murmur, rubs, gallop, clicks GI/Abdominal exam: Present: soft, normal bowel sounds. Absent: distended, tenderness, guarding, rebound, rigid Extremities exam: Present: normal inspection, full ROM, normal capillary refill. Absent: tenderness, pedal edema, joint swelling, calf tenderness Back exam: Present: normal inspection Neurological exam: Present: alert, oriented X3 Psychiatric exam: Present: normal affect, normal mood Skin exam: Present: warm, dry, intact, normal color. Absent: rash Course Vital Signs 01/20/25 01/21/25 01/21/25 23:44 01:20 03:28 Temperature 98.8 F Pulse Rate 80 60 68 Respiratory 17 17 17 Rate Blood Pressure 122/78 108/85 121/83 O2 Sat by Pulse 98 94 L 98 Oximetry Medical Decision Making - Medical Decision Making Was pt. sent in by a medical professional or institution (, PA, SWITCH HOUSE OPERATOR, urgent care, hospital, or longterm...) When possible be specific @ -No Did you speak to anyone other than the patient for history (EMS, parent, family, police, friend...)? What history was obtained from this source @ -No Did you review nursing and triage notes (agree or disagree)? Why? @ -I reviewed and agree with nursing and triage notes Were old charts reviewed (outside hosp., previous admission, EMS record, old E KG, old radiological studies, urgent care reports/EKG's, longterm records)? Report findings @ -No old charts were reviewed Differential Diagnosis (chest pain, altered mental status, abdominal pain women, abdominal pain men, vaginal bleeding, weakness, fever, dyspnea, syncope, headache, dizziness, GI bleed, back pain, seizure, CVA, palpatations, mental health, musculoskeletal)? @ -Differential Abdominal Pain Men: Appendicitis, cholecystitis, diverticulosis, ischemic bowel, pancreatitis, h epatitis, UTI, gastroenteritis, AAA, incarcerated hernia, bowel obstruction, constipation, inflammatory bowel, hepatitis, peptic ulcer disease, splenic infarction, perforated viscus, testicular torsion, this is not meant to be an all-inclusive list EKG interpreted by me (3pts min.). @ -None X-rays interpreted by me (1pt min.). @ -None done CT interpreted by me (1pt min.). @ -None done U/S interpreted by me (1pt. min.). @ -None done What testing was considered but not performed or refused? (CT, X-rays, U/S, labs)? Why? @ -None What meds were considered but not given or refused? Why? @ -None Did you discuss the management of the patient with other professionals (professionals i.e. DrRedd, PA, SWITCH HOUSE OPERATOR, lab, RT, psych nurse, secondary social studies teacher, loan clerk, teacher, landing signal officer, corrections caseworker)? Give summary @ -No Was smoking cessation discussed for >3mins.? @ -No Was critical care preformed (if so, how long)? @ -No Were there social determinants of health that impacted care today? How? (Homelessness, low income, unemployed, alcoholism, drug addiction, transportation, low edu. Level, literacy, decrease access to med. care, group home, rehab)? @ -No Was there de-escalation of care discussed even if they declined (Discuss DNR or withdrawal of care, Hospice)? DNR status @ -No What co-morbidities impacted this encounter? (DM, HTN, Smoking, COPD, CAD, Cancer, CVA, ARF, Chemo, Hep., AIDS, mental health diagnosis, sleep apnea, morbid obesity)? @ -None Was patient admitted / discharged? Hospital course, mention meds given and route, prescriptions, significant lab abnormalities, going to OR and other pertinent info. @ -Discharge.The patient presented to the emergency department for generalized abdominal. Laboratory studies obtained revealing a significantly cytosis, hemoglobin 13.8; CMP is nonactionable. Patient provided IV fluids along with medication for pain and nausea control in the emergency department. He will be discharged home. He is understanding agreeable plan. Patient stable at time of discharge. Case discussed with Dr. Mulligan. Undiagnosed new problem with uncertain prognosis? @ -No Drug Therapy requiring intensive monitoring for toxicity (Heparin, Nitro, Insulin, Cardizem)? @ -No Were any procedures done? @ -No Diagnosis/symptom? @ -Nausea and vomiting Acute, or Chronic, or Acute on Chronic? @ -Acute on chronic Uncomplicated (without systemic symptoms) or Complicated (systemic symptoms)? @ -Uncomplicated Side effects of treatment? @ -No Exacerbation, Progression, or Severe Exacerbation? @ -No Poses a threat to life or bodily function? How? (Chest pain, [place], [place], pneumonia, PE, COPD, DKA, ARF, appy, cholecystitis, CVA, Diverticulitis, Homicidal, Suicidal, threat to staff... and all critical care pts) @ -No - Lab Data Result diagrams: 01/21/25 01:12 01/21/25 01:12 Lab Results 01/21/25 01/21/25 Range/Units 01:12 01:12 WBC 5.40 (4.50-10.00) 10*3/uL RBC 4.51 (4.40-5.60) 10*6/uL Hgb 13.8 (13.0-17.0) g/dL Hct 39.0 L (39.6-50.0) % MCV 86.5 (80.0-97.0) fL MCH 30.6 (27.0-32.0) pg MCHC 35.4 (32.0-37.0) g/dL Plt Count 139 L (140-440) 10*3/uL MPV 10.6 (9.5-12.2) fL Immature Gran % (Auto) 0.7 % Neutrophils % 66.9 % Lymphocytes % 19.6 % Monocytes % 7.4 % Eosinophils % 5.2 % Basophils % 0.2 % Immature Gran # 0.04 (0.00-0.04) 10*3/uL Neutrophils # 3.61 (1.80-7.70) 10*3/uL Lymphocytes # 1.06 (0.90-5.00) 10*3/uL Monocytes # 0.40 (0.20-1.00) 10*3/uL Eosinophils # 0.28 (0.04-0.35) 10*3/uL Basophils # 0.01 (0.00-0.10) 10*3/uL Immature Plt Fraction 2.9 (1.1-6.1) % Sodium 137 (137-145) mmol/L Potassium 4.4 (3.5-5.1) mmol/L Chloride 107 (98-107) mmol/L Carbon Dioxide 22 (22-30) mmol/L Anion Gap 8 mmol/L BUN 15 (9-20) mg/dL Creatinine 0.63 L (0.66-1.25) mg/dL Est GFR (CKD-EPI)AfAm >90 (>60 ml/min/1.73 sqM) Est GFR (CKD-EPI)NonAf >90 (>60 ml/min/1.73 sqM) Glucose 194 H (74-99) mg/dL Calcium 8.7 (8.4-10.2) mg/dL Total Bilirubin 0.6 (0.2-1.3) mg/dL AST 31 (17-59) U/L ALT 39 (4-49) U/L Alkaline Phosphatase 112 (38-126) U/L Total Protein 5.8 L (6.3-8.2) g/dL Albumin 3.8 (3.5-5.0) g/dL Disposition Clinical Impression: Nausea & vomiting Disposition: HOME SELF-CARE Condition: Stable Instructions (If sedation given, give patient instructions): Acute Nausea and Vomiting (ED) Additional Instructions: Please follow up with your doctor. Return to the emergency department for new or worsening symptoms. Is patient prescribed a controlled substance at d/c from ED?: No Referrals: Domo Castro III, MD [Primary Care Provider] - 1-2 days
[2025-01-21 03:29] VITALS: BP 121/83; PULSE 68
== END 2025-01-21 03:29 | disposition home or self-care (01) ==
LOC: EC 23:22
DX: R11.2 Nausea with vomiting, unspecified (principal); F17.200 Nicotine dependence, unspecified, uncomplicated; Z88.0 Allergy status to penicillin; Z88.1 Allergy status to other antibiotic agents; Z88.2 Allergy status to sulfonamides; Z91.09 Other allergy status, other than to drugs and biological substances; Z91.040 Latex allergy status; Z88.8 Allergy status to other drugs, medicaments and biological substances
CPT/HCPCS: 36415; 80053; 85025; 99284; 96374; 96375; 96376; 96361; J2405; J1885

== ENCOUNTER 2025-01-24 11:01 | Emergency (ER) | payer MEDICAID, MEDICARE ==
[2025-01-24 11:04] VITALS: BP 135/82; PULSE 68; RESP 18; TEMP 98.4
--- NOTE | 2025-01-24 11:13 | ED ---
Anxiety HPI - General Chief Complaint: Anxiety Stated Complaint: Anxiety Time Seen by Provider: 01/24/25 11:05 Source: patient, EMS, RN notes reviewed Mode of arrival: EMS Limitations: no limitations - History of Present Illness Initial Comments: This is a 54-year-old male who presents to the emergency department for anxiety. Patient is well-known to this emergency department for a multitude of complaints including mental health issues. States that he is "a nervous wreck". Denies any suicidal or homicidal ideations. States that he would like to speak with EPS and would like medication to help with his anxiety. Patient is not satisfied with his living situation, which is the largest reason for his anxiety. MD Complaint: anxiety - Related Data Home Medications: Home Medications Medication Instructions Recorded Confirmed Albuterol Inhaler [Ventolin Hfa 2 puff INHALATION RT-Q6H PRN 01/03/25 01/03/25 Inhaler] Previous Rx's Medication Instructions Recorded ARIPiprazole IM SYRINGE [Abilify 400 mg IM Q28D #1 each 01/08/25 Maintena Syringe] Acetaminophen Tab [Tylenol] 650 mg PO Q4HR PRN tab 01/08/25 Aspirin EC [Ecotrin Low Dose] 81 mg PO DAILY 30 Days #30 tab 01/08/25 Atorvastatin [Lipitor] 40 mg PO HS 30 Days #30 tab 01/08/25 Budesonide/Formoterol Fumarate 2 puff INHALATION RT-BID 30 Days 01/08/25 [Symbicort 80-4.5 Mcg Inhaler] #1 each Cetirizine HCl [Zyrtec] 10 mg PO DAILY 30 Days #30 tab 01/08/25 Citalopram Hydrobromide [CeleXA] 40 mg PO DAILY 30 Days #30 tab 01/08/25 INSULIN LISPRO (HumaLOG) [HumaLOG] 0 unit SQ ACHS each 01/08/25 Insulin Glargine,Hum.rec.anlog 20 unit SQ HS 30 Days #1 each 01/08/25 [Insulin Glargine Solostar] Montelukast [Singulair] 10 mg PO DAILY 30 Days #30 tab 01/08/25 Naproxen [EC-Naprosyn] 500 mg PO BID PRN 30 Days #60 tab 01/08/25 Nicotine Gum (Polacrilex) 2 mg BUCCAL Q6HR PRN 30 Days #180 01/08/25 [Nicorette] pieceofgum Omeprazole [PriLOSEC] 40 mg PO BID 30 Days #60 cap 01/08/25 QUEtiapine [SEROquel] 200 mg PO HS 30 Days #30 tab 01/08/25 Tamsulosin [Flomax] 0.4 mg PO BID 30 Days #60 cap 01/08/25 glipiZIDE 2.5 mg PO DAILY 30 Days #30 tab 01/08/25 metFORMIN HCL ER [Glucophage XR] 500 mg PO BID 30 Days #60 tab 01/08/25 traZODone HCL 100 mg PO HS PRN 30 Days #30 tab 01/08/25 Ondansetron [Zofran] 4 mg PO Q8HR PRN #6 tab 01/11/25 Allergies/Adverse Reactions: Allergies Allergy/AdvReac Type Severity Reaction Status Date / Time dicyclomine HCl [From Bentyl] Allergy Unknown Dyspnea Verified 01/24/25 11:05 latex Allergy Unknown Rash/Hives Verified 01/24/25 11:05 Benzoate Analogues Allergy Unknown Verified 01/24/25 11:05 benzonatate Allergy Unknown Verified 01/24/25 11:05 nitrofurantoin Allergy Nausea Verified 01/24/25 11:05 [From Macrobid] Penicillins Allergy "[place] Verified 01/24/25 11:05 funny" adhesive AdvReac Unknown Itching Verified 01/24/25 11:05 ciprofloxacin AdvReac Unknown Nausea Verified 01/24/25 11:05 Macrolide Antibiotics AdvReac Unknown Nausea Verified 01/24/25 11:05 sulfamethoxazole AdvReac Unknown Unknown Verified 01/24/25 11:05 [From Bactrim] trimethoprim [From Bactrim] AdvReac Unknown Unknown Verified 01/24/25 11:05 diphenhydramine AdvReac Confusion Verified 01/24/25 11:05 [From Benadryl] trazodone AdvReac Swelling Verified 01/24/25 11:05 Review of Systems ROS Statement: Those systems with pertinent positive or pertinent negative responses have been documented in the HPI. ROS Other: All systems not noted in ROS Statement are negative. Past Medical History Past Medical History: Asthma, Chest Pain / Angina, COPD, CVA/TIA, Diabetes Mellitus, GERD/Reflux, Hearing Disorder / Deafness, Hyperlipidemia, Hyp ertension, Liver Disease, Osteoarthritis (OA), Pneumonia, Seizure Disorder, Sleep Apnea/CPAP/BIPAP Additional Past Medical History / Comment(s): states CVA at 35 yrs old, no w eakness @ this time. states seizure at 35 yrs old., DDD- back & neck pain., carpal tunnel syndrome. Has [employer] public guardian. Cyst on spleen. History of Any Multi-Drug Resistant Organisms: None Reported, Other MDRO Past Surgical History: Heart Catheterization, Orthopedic Surgery Additional Past Surgical History / Comment(s): Cysts removed, left thumb surgery, colonoscopy 08/24/2019. Skin tags removed from both eyes. Past Anesthesia/Blood Transfusion Reactions: Motion Sickness, Postoperative Nausea & Vomiting (PONV) Past Psychological History: Anxiety, Bipolar, Depression Smoking Status: Current every day smoker Past Alcohol Use History: Abuse Past Drug Use History: None Reported - Past Family History Brother(s) Family Medical History: Diabetes Mellitus Additional Family Medical History / Comment(s): Patient has 2 brothers. One from complications from diabetes. The second is alive with diabetes. Sister(s) Family Medical History: Cancer Additional Family Medical History / Comment(s): Patient has one sister with breast cancer. Patient does not have any children. Father Family Medical History: Cancer Additional Family Medical History / Comment(s): Father in his 40s or 50s from colon cancer. Mother Family Medical History: Cancer Additional Family Medical History / Comment(s): Mother at age 68 from lung cancer. General Exam Limitations: no limitations General appearance: alert, in no apparent distress Head exam: Present: atraumatic, normocephalic, normal inspection Respiratory exam: Present: normal lung sounds bilaterally. Absent: respiratory distress, wheezes, rales, rhonchi, stridor Cardiovascular Exam: Present: regular rate, normal rhythm Neurological exam: Present: alert, oriented X3, CN II-XII intact Psychiatric exam: Present: normal affect, normal mood Skin exam: Present: warm, dry, intact, normal color. Absent: rash Course Vital Signs 01/24/25 11:02 Temperature 98.4 F Pulse Rate 68 Respiratory 18 Rate Blood Pressure 135/82 O2 Sat by Pulse 99 Oximetry Medical Decision Making - Medical Decision Making This is a 54-year-old male who presents to the emergency department for anxiety. Was pt. sent in by a medical professional or institution? @ -No Did you speak to anyone other than the patient for history? @ -No Did you review nursing and triage notes? @ -Yes, and I agree, it is accurate with regards to the patient's symptoms. Were old charts reviewed? @ -No Differential Diagnosis? @ -Differential Mental Health Depression, anxiety, bipolar, psychosis, schizophrenia, borderline personality, situational depression, adjustment disorder, behavioral disorder, brain tumor, malingering, substance abuse, encephalopathy, medication reaction, dementia, hypothyroidism, degenerative neurologic disorder, lupus.... This is not meant to be all-inclusive list EKG interpreted by me (3pts min.)? @ -Not obtained X-rays interpreted by me (1pt min.)? @ -Not obtained CT interpreted by me (1pt min.)? @ -Not obtained U/S interpreted by me (1pt. min.)? @ -Not obtained What testing was considered but not performed? (CT, X-rays, U/S, labs)? Why? @ -None What meds were considered but not given? Why? @ -None Did you discuss the management of the patient with other professionals? @ -Yes, Florecita with EPS, who advised that the patient could be discharged home. Did you reconcile home meds? @ -No Was smoking cessation discussed for >3mins.? @ -I discussed smoking cessation for greater than 3 minutes. The risk of smoking were discussed with the patient including but not limited to risks of cancer, stroke, coronary artery disease and COPD. Also discussed with patient were multiple methods of quitting smoking. Lastly we discussed the financial cost of smoking. Was critical care preformed (if so, how long)? @ -No Were there social determinants of health that impacted care today? How? (Homelessness, low income, unemployed, alcoholism, drug addiction, transportation, low edu. Level, literacy, decrease access to med. care, penitentiary, rehab)? @ -No Was there de-escalation of care discussed even if they declined? (Discuss DNR or withdrawal of care, Hospice)? @ -No What co-morbidities impacted this encounter? (DM, HTN, Smoking, COPD, CAD, Cancer, CVA, Hep., AIDS, mental health diagnosis, sleep apnea, morbid obesity)? @ -Mental health diagnosis, DM, smoking Was patient admitted / discharged? @ -Discharged. Patient's BAT was 0.0 and he was cleared for EPS evaluation. EPS evaluated the patient and advised that he could be discharged home with a safety plan. He was not a threat to himself or others. Medication administered for his anxiety. Patient discharged home in stable condition. Case discussed with ED attending Dr. Christopher. Return precautions reviewed in depth, the patient is instructed to return to the emergency department with any new, worsening, or concerning symptoms. Patient verbalized understanding. Undiagnosed new problem with uncertain prognosis? @ -None Drug Therapy requiring intensive monitoring for toxicity (Heparin, Nitro, Insulin, Cardizem)? @ -None Were any procedures done? @ -None Diagnosis/symptom? @ -Anxiety Acute, or Chronic, or Acute on Chronic? @ -Acute Uncomplicated (without systemic symptoms) or Complicated (systemic symptoms)? @ -Uncomplicated Side effects of treatment? @ -None Exacerbation, Progression, or Severe Exacerbation] @ -Not applicable Poses a threat to life or bodily function? @ -No Disposition Clinical Impression: Anxiety, Nicotine dependence Disposition: HOME SELF-CARE Instructions (If sedation given, give patient instructions): Generalized Anxiety Disorder (ED), Panic Disorder (ED), Panic Attack (ED) Additional Instructions: Return to the emergency department with any new, worsening, or concerning symptoms. Follow up with your primary care provider in 1-2 days. Is patient prescribed a controlled substance at d/c from ED?: No Referrals: Domo Castro III, MD [Primary Care Provider] - 1-2 days Time of Disposition: 12:53
[2025-01-24] MEDS: LORazepam 1 MG TAB PO STA ×2 (11:39→13:09)
[2025-01-24] MEDS: HALOPERIDOL LACTATE 5 MG/ML 1 ML VIAL IM STA (13:08)
[2025-01-24] MEDS: hydrOXYzine HCL 25 MG TAB PO STA (13:10)
== END 2025-01-24 13:17 | disposition home or self-care (01) ==
LOC: EC 11:01
DX: F41.9 Anxiety disorder, unspecified (principal); F17.200 Nicotine dependence, unspecified, uncomplicated; E11.9 Type 2 diabetes mellitus without complications; Z88.0 Allergy status to penicillin; Z88.1 Allergy status to other antibiotic agents; Z88.2 Allergy status to sulfonamides; Z91.09 Other allergy status, other than to drugs and biological substances; Z91.040 Latex allergy status; Z88.8 Allergy status to other drugs, medicaments and biological substances
CPT/HCPCS: 82075; 99283; 96372; J1630

== ENCOUNTER 2025-01-25 21:42 | Emergency (ER) | payer MEDICARE ==
[2025-01-25 22:14] VITALS: TEMP 98.3
--- NOTE | 2025-01-25 22:40 | ED ---
General Adult HPI - General Chief complaint: Neck Pain/Injury Stated complaint: ETOH Time Seen by Provider: 01/25/25 22:22 Source: patient Mode of arrival: EMS Limitations: no limitations - History of Present Illness Initial comments: 54-year-old male well-known to our ER presenting with chief complaint of neck pain. States the pain has been ongoing for several days. Denies injury or trauma. States he is having pain down his lower back as well which has been ongoing for several days. No loss of bowel or bladder control or saddle paresthesia. Patient reports that he has been drinking tonight, breath alcohol was 0.95. He is able to ambulate. He called EMS because of his pain and was placed in c-collar. No falls. - Related Data Home Medications Medication Instructions Recorded Confirmed Albuterol Inhaler [Ventolin Hfa 2 puff INHALATION RT-Q6H PRN 01/03/25 01/03/25 Inhaler] Previous Rx's Medication Instructions Recorded ARIPiprazole IM SYRINGE [Abilify 400 mg IM Q28D #1 each 01/08/25 Maintena Syringe] Acetaminophen Tab [Tylenol] 650 mg PO Q4HR PRN tab 01/08/25 Aspirin EC [Ecotrin Low Dose] 81 mg PO DAILY 30 Days #30 tab 01/08/25 Atorvastatin [Lipitor] 40 mg PO HS 30 Days #30 tab 01/08/25 Budesonide/Formoterol Fumarate 2 puff INHALATION RT-BID 30 Days 01/08/25 [Symbicort 80-4.5 Mcg Inhaler] #1 each Cetirizine HCl [Zyrtec] 10 mg PO DAILY 30 Days #30 tab 01/08/25 Citalopram Hydrobromide [CeleXA] 40 mg PO DAILY 30 Days #30 tab 01/08/25 INSULIN LISPRO (HumaLOG) [HumaLOG] 0 unit SQ ACHS each 01/08/25 Insulin Glargine,Hum.rec.anlog 20 unit SQ HS 30 Days #1 each 01/08/25 [Insulin Glargine Solostar] Montelukast [Singulair] 10 mg PO DAILY 30 Days #30 tab 01/08/25 Naproxen [EC-Naprosyn] 500 mg PO BID PRN 30 Days #60 tab 01/08/25 Nicotine Gum (Polacrilex) 2 mg BUCCAL Q6HR PRN 30 Days #180 01/08/25 [Nicorette] pieceofgum Omeprazole [PriLOSEC] 40 mg PO BID 30 Days #60 cap 01/08/25 QUEtiapine [SEROquel] 200 mg PO HS 30 Days #30 tab 01/08/25 Tamsulosin [Flomax] 0.4 mg PO BID 30 Days #60 cap 01/08/25 glipiZIDE 2.5 mg PO DAILY 30 Days #30 tab 01/08/25 metFORMIN HCL ER [Glucophage XR] 500 mg PO BID 30 Days #60 tab 01/08/25 traZODone HCL 100 mg PO HS PRN 30 Days #30 tab 01/08/25 Ondansetron [Zofran] 4 mg PO Q8HR PRN #6 tab 01/11/25 Allergies Allergy/AdvReac Type Severity Reaction Status Date / Time dicyclomine HCl [From Bentyl] Allergy Unknown Dyspnea Verified 01/24/25 11:05 latex Allergy Unknown Rash/Hives Verified 01/24/25 11:05 Benzoate Analogues Allergy Unknown Verified 01/24/25 11:05 benzonatate Allergy Unknown Verified 01/24/25 11:05 nitrofurantoin Allergy Nausea Verified 01/24/25 11:05 [From Macrobid] Penicillins Allergy "[place] Verified 01/24/25 11:05 funny" adhesive AdvReac Unknown Itching Verified 01/24/25 11:05 ciprofloxacin AdvReac Unknown Nausea Verified 01/24/25 11:05 Macrolide Antibiotics AdvReac Unknown Nausea Verified 01/24/25 11:05 sulfamethoxazole AdvReac Unknown Unknown Verified 01/24/25 11:05 [From Bactrim] trimethoprim [From Bactrim] AdvReac Unknown Unknown Verified 01/24/25 11:05 diphenhydramine AdvReac Confusion Verified 01/24/25 11:05 [From Benadryl] trazodone AdvReac Swelling Verified 01/24/25 11:05 Review of Systems ROS Statement: Those systems with pertinent positive or pertinent negative responses have been documented in the HPI. ROS Other: All systems not noted in ROS Statement are negative. Past Medical History Past Medical History: Asthma, Chest Pain / Angina, COPD, CVA/TIA, Diabetes Mellitus, GERD/Reflux, Hearing Disorder / Deafness, Hyperlipidemia, Hypertension, Liver Disease, Osteoarthritis (OA), Pneumonia, Seizure Disorder, Sleep Apnea/CPAP/BIPAP Additional Past Medical History / Comment(s): states CVA at 35 yrs old, no weakness @ this time. states seizure at 35 yrs old., DDD- back & neck pain., carpal tunnel syndrome. Has [employer] public guardian. Cyst on spleen. History of Any Multi-Drug Resistant Organisms: None Reported, Other MDRO Past Surgical History: Heart Catheterization, Orthopedic Surgery Additional Past Surgical History / Comment(s): Cysts removed, left thumb surgery, colonoscopy 08/24/2019. Skin tags removed from both eyes. Past Anesthesia/Blood Transfusion Reactions: Motion Sickness, Postoperative Nausea & Vomiting (PONV) Past Psychological History: Anxiety, Bipolar, Depression Smoking Status: Current every day smoker Past Alcohol Use History: Abuse Past Drug Use History: None Reported - Past Family History Brother(s) Family Medical History: Diabetes Mellitus Additional Family Medical History / Comment(s): Patient has 2 brothers. One from complications from diabetes. The second is alive with diabetes. Sister(s) Family Medical History: Cancer Additional Family Medical History / Comment(s): Patient has one sister with breast cancer. Patient does not have any children. Father Family Medical History: Cancer Additional Family Medical History / Comment(s): Father in his 40s or 50s from colon cancer. Mother Family Medical History: Cancer Additional Family Medical History / Comment(s): Mother at age 68 from lung cancer. General Exam Limitations: no limitations General appearance: alert, in no apparent distress Head exam: Present: atraumatic, normocephalic, normal inspection Eye exam: Present: normal appearance, EOMI. Absent: periorbital swelling Neck exam: Present: normal inspection, full ROM. Absent: tenderness (No midline tenderness, there is paraspinal muscle tenderness) Respiratory exam: Absent: respiratory distress Cardiovascular Exam: Present: regular rate Neurological exam: Present: alert, oriented X3 Expanded Eye Response: (4) open spontaneously Motor Response: (6) obeys commands Verbal Response: (5) oriented [place] Total: 15 Psychiatric exam: Present: normal affect, normal mood Skin exam: Present: warm, dry, normal color Course Vital Signs 01/25/25 01/25/25 22:11 23:49 Temperature 98.3 F Pulse Rate 65 59 L Respiratory 16 17 Rate Blood Pressure 122/80 119/76 O2 Sat by Pulse 98 100 Oximetry Medical Decision Making - Medical Decision Making Was pt. sent in by a medical professional or institution ([facility], TEXTILE FINISHER, urgent care, hospital, or long-term...) When possible be specific @ -No Did you speak to anyone other than the patient for history (EMS, parent, family, police, friend...)? What history was obtained from this source @ -No Did you review nursing and triage notes (agree or disagree)? Why? @ -I reviewed and agree with nursing and triage notes Were old charts reviewed (outside hosp., previous admission, EMS record, old EKG, old radiological studies, urgent care reports/EKG's, long-term records)? Report findings @ -No old charts were reviewed Differential Diagnosis (chest pain, altered mental status, abdominal pain women, abdominal pain men, vaginal bleeding, weakness, fever, dyspnea, syncope, headache, dizziness, GI bleed, back pain, seizure, CVA, palpatations, mental health, musculoskeletal)? @ -Differential includes strain, sprain, fracture, not an all-inclusive list EKG interpreted by me (3pts min.). @ -As above X-rays interpreted by me (1pt min.). @ -None done CT interpreted by me (1pt min.). @ -None done U/S interpreted by me (1pt. min.). @ -None done What testing was considered but not performed or refused? (CT, X-rays, U/S, labs)? Why? @ -None What meds were considered but not given or refused? Why? @ -None Did you discuss the management of the patient with other professionals (professionals i.e. SEAN Cordova, TEXTILE FINISHER, lab, RT, psych nurse, social work manager, technical spec, teacher, field artillery officer, bilingual patient support caseworker)? Give summary @ -No Was smoking cessation discussed for >3mins.? @ -No Was critical care preformed (if so, how long)? @ -No Were there social determinants of health that impacted care today? How? (Homelessness, low income, unemployed, alcoholism, drug addiction, transportation, low edu. Level, literacy, decrease access to med. care, [facility], rehab)? @ -No Was there de-escalation of care discussed even if they declined (Discuss DNR or withdrawal of care, Hospice)? DNR status @ -No What co-morbidities impacted this encounter? (DM, HTN, Smoking, COPD, CAD, Cancer, CVA, ARF, Chemo, Hep., AIDS, mental health diagnosis, sleep apnea, morbid obesity)? @ -None Was patient admitted / discharged? Hospital course, mention meds given and route, prescriptions, significant lab abnormalities, going to OR and other pertinent info. @ -54-year-old male well-known to our ER presenting with chief complaint of neck pain and lower back pain. No injury or trauma. Has been ongoing for several days. Was placed in a c-collar by EMS. C-collar was removed and patient has full range of motion of his neck and extremities. No midline tenderness, there is some paraspinal muscle tenderness. He reports that he has been drinking today, breath alcohol 0.095. Patient observed until sober. Provided with Toradol for his pain. Follow-up with PCP. Report back to ER with any new or worsening symptoms. Discussed return parameters and answered all questions. Patient conveyed verbal understanding and agreed to the plan. I discussed this case in detail with my attending Dr. Smith Undiagnosed new problem with uncertain prognosis? @ -No Drug Therapy requiring intensive monitoring for toxicity (Heparin, Nitro, Insulin, Cardizem)? @ -No Were any procedures done? @ -No Diagnosis/symptom? @ -Neck strain Acute, or Chronic, or Acute on Chronic? @ -Acute Uncomplicated (without systemic symptoms) or Complicated (systemic symptoms)? @ -Uncomplicated Side effects of treatment? @ -No Exacerbation, Progression, or Severe Exacerbation? @ -No Poses a threat to life or bodily function? How? (Chest pain, [place], [place], pneumonia, PE, COPD, DKA, ARF, appy, cholecystitis, CVA, Diverticulitis, Homicidal, Suicidal, threat to staff... and all critical care pts) @ -Unlikely Disposition Clinical Impression: Strain of neck muscle Disposition: HOME SELF-CARE Condition: Fair Instructions (If sedation given, give patient instructions): Cervical Strain (ED) Additional Instructions: Follow-up with PCP. Report back to ER with any new or worsening symptoms. Take Motrin and Tylenol as needed for pain control. Is patient prescribed a controlled substance at d/c from ED?: No Referrals: None,Stated [Primary Care Provider] - 1-2 days
[2025-01-25] MEDS: KETOROLAC 15 MG/ML 1 ML VIAL IM STA (22:53)
[2025-01-25 23:50] VITALS: BP 119/76; PULSE 59; RESP 17
== END 2025-01-25 23:50 | disposition home or self-care (01) ==
LOC: EC 21:42
DX: S16.1XXA Strain of muscle, fascia and tendon at neck level, initial encounter (principal); F17.200 Nicotine dependence, unspecified, uncomplicated; Z88.0 Allergy status to penicillin; Z88.1 Allergy status to other antibiotic agents; Z88.2 Allergy status to sulfonamides; Z91.09 Other allergy status, other than to drugs and biological substances; Z91.040 Latex allergy status; Z88.8 Allergy status to other drugs, medicaments and biological substances; X58.XXXA Exposure to other specified factors, initial encounter; Y90.0 Blood alcohol level of less than 20 mg/100 ml
CPT/HCPCS: 99284; 96372; J1885